=== PATIENT | female | born 1940 | race Caucasian/White ===

== ENCOUNTER → 2017-07-06 08:41 | Outpatient (CLI) | payer MEDICARE, SELFPAY ==
[2017-07-06 09:16] LABS: Basophils % 0.5 % (0.1-2.0); Eosinophils # 0.4 K/mm3 (0.0-0.4); Eosinophils % 6.2 % (0.1-12.0); Hematocrit 43.8 % (37.0-47.0); Hemoglobin 14.4 g/dL (12.2-16.2); Lymphocytes # 1.5 K/mm3 (0.7-4.5); Lymphocytes % 24.3 K/mm3 (10-50); Mean Corpuscular Hemoglobin 32.1 pg (27.0-31.2); Mean Corpuscular Volume 97.4 fl (81-99); Mean Platelet Volume 8.1 fl (7.4-10.4); Monocytes # 0.4 K/mm3 (0.1-1.0); Monocytes % 6.4 % (1.7-9.3); Neutrophils # 3.7 K/mm3 (1.8-7.8); Neutrophils % 62.5 % (37.0-80.0); Platelet Count 233 K/mm3 (142-424)
[2017-07-06 11:34] LABS: Alanine Aminotransferase 25 U/L (12-78); Albumin Level 3.5 gm/dL (3.4-5.0); Albumin/Globulin Ratio 1.1 (1.1-1.8); Alkaline Phosphatase 102 U/L (46-116); Aspartate Amino Transferase 25 U/L (15-37); Bilirubin,Total 0.6 mg/dL (0.2-1.0); Blood Urea Nitrogen 24 mg/dL (7-18); Calcium 9.1 mg/dL (8.5-10.1); Carbon Dioxide 34 mmol/L (21.0-32.0); Chloride 103 mmol/L (98-107); Chol/HDL Ratio 3.6 (1-3.5); Cholesterol 196 mg/dL (140-200); Creatinine,Serum 0.89 mg/dL (0.55-1.02); Estimated Glomerular Filt Rate 62 ml/min (>60); GFR (African American) 75 ML/MIN (>60); Globulin 3.2 gm/dl (1.3-3.2); Glucose 92 mg/dL (74-106); HDL Cholesterol 55 mg/dL (29-89); LDL Cholesterol 122 mg/dL (0-130); Sodium 142 mmol/L (136-145); Thyroid Stimulating Hormone 0.84 uIU/ml (0.358-3.740); Total Protein,Serum 6.7 gm/dL (6.4-8.2); Triglycerides 93 mg/dL (30-200); VLDL Cholesterol 19 mg/dL (0-40)
== END ==
PROVIDERS: Visit Provider Nurse Practitioner Family
DX: M79.2 Neuralgia and neuritis, unspecified (principal); E78.5 Hyperlipidemia, unspecified; E03.9 Hypothyroidism, unspecified; I10 Essential (primary) hypertension; I87.2 Venous insufficiency (chronic) (peripheral); N28.1 Cyst of kidney, acquired
CPT/HCPCS: 36415; 80053; 80061; 84443; 85025

== ENCOUNTER → 2017-07-15 17:52 | Outpatient (REF) | payer MEDICARE, SELFPAY | LOC: LAB 17:52 | PROVIDERS: Visit Provider Podiatrist | DX: B35.1 Tinea unguium (principal) | CPT/HCPCS: 87102; 87206; 87220 ==

== ENCOUNTER → 2017-08-20 08:35 | Outpatient (CLI) | payer MEDICARE, SELFPAY ==
[2017-08-20 10:48] LABS: Anion Gap 9.3 mEq/L (5-15); Blood Urea Nitrogen 27 mg/dL (7-18); Calcium 8.1 mg/dL (8.5-10.1); Carbon Dioxide 29 mmol/L (21.0-32.0); Chloride 104 mmol/L (98-107); Creatinine,Serum 0.76 mg/dL (0.55-1.02); Estimated Glomerular Filt Rate 74 ml/min (>60); GFR (African American) 90 ML/MIN (>60); Glucose 92 mg/dL (74-106); Potassium 4.3 mmoL/L (3.5-5.1); Sodium 138 mmol/L (136-145)
== END ==
PROVIDERS: Urology; Visit Provider Internal Medicine
DX: I25.10 Atherosclerotic heart disease of native coronary artery without angina pectoris (principal); I11.9 Hypertensive heart disease without heart failure; E78.5 Hyperlipidemia, unspecified; R60.9 Edema, unspecified
CPT/HCPCS: 36415; 80048

== ENCOUNTER → 2018-02-19 10:53 | Outpatient (CLI) | payer MEDICARE, SELFPAY ==
[2018-02-19 11:29] LABS: Basophils % 0.3 % (0.1-2.0); Eosinophils # 0.3 K/mm3 (0.0-0.4); Eosinophils % 4.8 % (0.1-12.0); Hematocrit 40.7 % (37.0-47.0); Hemoglobin 13.1 g/dL (12.2-16.2); Lymphocytes # 1.4 K/mm3 (0.7-4.5); Lymphocytes % 19.9 % (10-50); Mean Corpuscular HGB Conc 32.2 g/dL (31.8-35.4); Mean Corpuscular Hemoglobin 31.7 pg (27.0-31.2); Mean Corpuscular Volume 98.7 fl (81-99); Mean Platelet Volume 7.6 fl (7.4-10.4); Monocytes # 0.4 K/mm3 (0.1-1.0); Monocytes % 5.3 % (1.7-9.3); Neutrophils # 4.8 K/mm3 (1.8-7.8); Neutrophils % 69.7 % (37.0-80.0); Platelet Count 245 K/mm3 (142-424); Red Blood Count 4.13 M/mm3 (4.20-5.40); Red Cell Distribution Width 12.7 % (11.5-17.5); White Blood Count 6.9 K/mm3 (4.8-10.8)
[2018-02-19 12:45] LABS: Alanine Aminotransferase 22 U/L (12-78); Albumin Level 3.3 gm/dL (3.4-5.0); Albumin/Globulin Ratio 1.1 (1.1-1.8); Alkaline Phosphatase 92 U/L (46-116); Anion Gap 12.3 mEq/L (5-15); Aspartate Amino Transferase 16 U/L (15-37); Bilirubin,Total 0.6 mg/dL (0.2-1.0); Blood Urea Nitrogen 25 mg/dL (7-18); Calcium 8.3 mg/dL (8.5-10.1); Carbon Dioxide 29 mmol/L (21.0-32.0); Chloride 104 mmol/L (98-107); Cholesterol 172 mg/dL (140-200); Creatinine,Serum 0.84 mg/dL (0.55-1.02); Estimated Glomerular Filt Rate 66 ml/min (>60); GFR (African American) 80 ML/MIN (>60); Glucose 96 mg/dL (74-106); HDL Cholesterol 57 mg/dL (29-89); LDL Cholesterol 92 mg/dL (0-130); Potassium 4.3 mmoL/L (3.5-5.1); Sodium 141 mmol/L (136-145); Thyroid Stimulating Hormone 0.69 uIU/ml (0.358-3.740); Total Protein,Serum 6.3 gm/dL (6.4-8.2); Triglycerides 116 mg/dL (30-200); Uric Acid 5.4 mg/dL (2.6-7.2); VLDL Cholesterol 23 mg/dL (0-40)
[2018-02-21 14:11] LABS: Vitamin D 25 Hydroxy 29.1 ng/mL (30.0-100.0)
== END ==
PROVIDERS: Visit Provider Nurse Practitioner Family
DX: E78.5 Hyperlipidemia, unspecified (principal); I10 Essential (primary) hypertension; M10.9 Gout, unspecified; E03.9 Hypothyroidism, unspecified; R60.9 Edema, unspecified; M89.9 Disorder of bone, unspecified; M94.9 Disorder of cartilage, unspecified
CPT/HCPCS: 36415; 80053; 80061; 82652; 84443; 84550; 85025

== ENCOUNTER → 2018-07-08 08:20 | Outpatient (CLI) | payer MEDICARE, SELFPAY ==
--- NOTE | 2018-07-08 08:23 | CA_ITS ---
PROCEDURE: 2-D M-mode and color Doppler study INDICATIONS FOR THE TEST: Chest pain COPD Heart Murmur Tobacco Smoking Palpitations Fatigue Syncope EdemaX HypertensionXDiabetes Mellitus Rheumatic Fever SOBXDOE ObesityXHyperlipidemiaX Family History HD Additional History CAD,CHF TDS OBESITY PATIENT INFORMATION HEIGHT: 60 WEIGHT:214 GENDER: Female B/P:118/64 2-D/M-MODE INTERPRETATION: 2-D MEASUREMENTS OBSERVED VALUES IN CMS Right Ventricular Dimension (RVDd) 2.7 Interventricular Septum (Thickness)(IVsd) .8 Left Ventricular Internal Dimensions(LVIDd) 4.7 Left Ventricular Posterior Wall (Thickness)(LVPWd) 1.2 Aortic Root 3.4 Aortic Cusp Separation 1.8 Left Atrial Dimensions (LAD) 2.9 2D 1. Left atrium is mildly enlarged, left ventricle is normal size, mild concentric left ventricular hypertrophy, visually estimated ejection fraction 55% with no regional wall motion abnormality. 2. The right atrium and right ventricle are normal size and contractility. 3. The aortic valve is thickened and calcified with restriction in the leaflet mobility. 4. The mitral valve has mitral annular calcification, which extends and both anterior and posterior mitral leaflet. 5. The tricuspid valve is grossly normal. 6. The pulmonic valve is poorly visualized 7. No significant pericardial effusion noted. DOPPLER INTERROGATION: 1. The maximum aortic out flow velocity recorded study is 2.8 m/s, resulting in a mean gradient across valve of 18 mmHg, this represents mild aortic stenosis, there is no aortic insufficiency. 2. The mitral inflow velocities within normal range, there is no mitral stenosis, there is mild mitral regurgitation, grade 1 diastolic dysfunction seen without tissue Doppler evidence of raised left atrial pressure. 3. Mild tricuspid regurgitation, tricuspid regurgitation jet velocity is inadequate for calculation of the right ventricular systolic pressure, inferior vena cava is not well visualized. CONCLUSION: 1. Mildly left atrium, normal left ventricular size, mild concentric left ventricular hypertrophy, visually estimated ejection fraction 55% with no regional wall motion abnormality, grade 1 diastolic dysfunction seen without tissue Doppler evidence of raised left atrial pressure. 2. Thickened and calcified aortic valve mean gradient across valve of 15 mmHg is mild aortic stenosis, there is no aortic insufficiency. 3. Mild mitral and tricuspid regurgitation 4. No significant pericardial effusion noted.
== END ==
PROVIDERS: PCP Internal Medicine Adolescent Medicine; Visit Provider Nurse Practitioner Family
DX: I11.9 Hypertensive heart disease without heart failure; I25.10 Atherosclerotic heart disease of native coronary artery without angina pectoris; I50.32 Chronic diastolic (congestive) heart failure; R60.0 Localized edema; E78.49 Other hyperlipidemia
CPT/HCPCS: 93306

== ENCOUNTER → 2018-08-08 11:56 | Outpatient (CLI) | payer MEDICARE, SELFPAY ==
--- NOTE | 2018-08-08 12:04 | XR_ITS ---
XR chest 2V HISTORY: ITS.REASON: HTN,ASTHMA,RT LUNG NODULE ORDERING PHYSICIAN: Flavia Gomez APRN PATIENT AGE: 78 years COMPARISON: 10 06 16 FINDINGS: The cardiomediastinal silhouette and pulmonary vascularity are within normal limits. The lungs are clear without infiltrates, suspicious nodules, or pleural effusions. Postsurgical changes from left shoulder replacement. Degenerative changes right shoulder.. IMPRESSION: No change with no acute finding
== END ==
PROVIDERS: PCP Nurse Practitioner Family; Visit Provider Nurse Practitioner Family
DX: Z01.818 Encounter for other preprocedural examination (principal); M17.11 Unilateral primary osteoarthritis, right knee
CPT/HCPCS: 71046; 93005

== ENCOUNTER → 2018-08-10 08:34 | Outpatient (CLI) | payer MEDICARE, SELFPAY ==
[2018-08-10 08:38] LABS: Microscopic, Urine URINE MICROSCOPIC (MICROSCOPIC)
[2018-08-10 09:11] LABS: Appearance,Urine CLEAR (Clear); Bilirubin,Urine Negative (Negative); Blood, Urine Negative (Negative); Color,Urine YELLOW (Yellow); Glucose,Urine (UA) Negative (Negative); Ketones,Urine Negative (Negative); Leukocyte Esterase,Urine Negative (Negative); Nitrate,Urine Negative (Negative); PH,Urine 7.5 (5.0-8.5); Protein,Urine Negative (Negative); Urobilinogen,Urine 0.2 EU/dl (0.2)
[2018-08-10 09:17] LABS: Basophils % 0.3 % (0.1-2.0); Eosinophils # 0.1 K/mm3 (0.0-0.4); Eosinophils % 0.9 % (0.1-12.0); Hematocrit 35.4 % (37.0-47.0); Hemoglobin 11.2 g/dL (12.2-16.2); Lymphocytes # 1.8 K/mm3 (0.7-4.5); Lymphocytes % 22.7 % (10-50); Mean Corpuscular HGB Conc 31.7 g/dL (31.8-35.4); Mean Corpuscular Hemoglobin 30.2 pg (27.0-31.2); Mean Corpuscular Volume 95.4 fl (81-99); Mean Platelet Volume 7.1 fl (7.4-10.4); Monocytes # 0.4 K/mm3 (0.1-1.0); Monocytes % 5.3 % (1.7-9.3); Neutrophils # 5.7 K/mm3 (1.8-7.8); Neutrophils % 70.8 % (37.0-80.0); Platelet Count 339 K/mm3 (142-424); Red Blood Count 3.71 M/mm3 (4.20-5.40); White Blood Count 8.1 K/mm3 (4.8-10.8)
[2018-08-10 09:23] LABS: Hemoglobin A1C 5.4 % (0.0-7.0)
[2018-08-10 09:26] LABS: Bacteria,Urine Trace /lpf; Squamous Epithelial Cell,Urine Occasional #/hpf (0-5)
[2018-08-10 09:31] LABS: Activated Partial Thrombo Time 25.9 seconds (23.6-34.0); INR 1.02 (0.9-1.1); Prothrombin Time 10.6 seconds (9.4-11.8)
[2018-08-10 10:40] LABS: Alanine Aminotransferase 27 U/L (12-78); Albumin Level 3.1 gm/dL (3.4-5.0); Albumin/Globulin Ratio 1.1 (1.1-1.8); Alkaline Phosphatase 71 U/L (46-116); Anion Gap 11.5 mEq/L (5-15); Aspartate Amino Transferase 17 U/L (15-37); Bilirubin,Total 0.5 mg/dL (0.2-1.0); Blood Urea Nitrogen 29 mg/dL (7-18); Calcium 8.4 mg/dL (8.5-10.1); Carbon Dioxide 29 mmol/L (21.0-32.0); Chloride 103 mmol/L (98-107); Cholesterol 199 mg/dL (140-200); Creatinine,Serum 0.89 mg/dL (0.55-1.02); Estimated Glomerular Filt Rate 62 ml/min (>60); GFR (African American) 75 ML/MIN (>60); Globulin 2.8 gm/dl (1.3-3.2); Glucose 87 mg/dL (74-106); HDL Cholesterol 66 mg/dL (29-89); LDL Cholesterol 122 mg/dL (0-130); Potassium 4.5 mmoL/L (3.5-5.1); Sodium 139 mmol/L (136-145); Thyroid Stimulating Hormone 1.66 uIU/ml (0.358-3.740); Total Protein,Serum 5.9 gm/dL (6.4-8.2); Triglycerides 53 mg/dL (30-200); Uric Acid 4.3 mg/dL (2.6-7.2); VLDL Cholesterol 11 mg/dL (0-40)
[2018-08-12 17:48] LABS: Vitamin D 25 Hydroxy 35.7 ng/mL (30.0-100.0)
== END ==
PROVIDERS: Visit Provider Nurse Practitioner Family
DX: Z01.818 Encounter for other preprocedural examination (principal); M17.11 Unilateral primary osteoarthritis, right knee; I10 Essential (primary) hypertension; E78.5 Hyperlipidemia, unspecified; M10.9 Gout, unspecified; E03.9 Hypothyroidism, unspecified; I87.2 Venous insufficiency (chronic) (peripheral); M81.0 Age-related osteoporosis without current pathological fracture; D64.9 Anemia, unspecified; Z51.81 Encounter for therapeutic drug level monitoring; Z79.899 Other long term (current) drug therapy
CPT/HCPCS: 36415; 80053; 80061; 81001; 82652; 83036; 84443; 84550; 85025; 85610; 85730

== ENCOUNTER → 2018-11-19 11:56 | Outpatient (CLI) | payer MEDICARE, SELFPAY ==
[2018-11-19 13:32] LABS: Blood Urea Nitrogen 17 mg/dL (7-18); Creatinine,Serum 0.88 mg/dL (0.55-1.02); Estimated Glomerular Filt Rate 62 ml/min (>60); GFR (African American) 76 ML/MIN (>60)
== END ==
PROVIDERS: Visit Provider Thoracic Surgery (Cardiothoracic Vascular Surgery)
DX: Z01.818 Encounter for other preprocedural examination (principal)
CPT/HCPCS: 36415; 82565; 84520

== ENCOUNTER 2019-06-16 12:05 | Emergency (ER) | payer MEDICARE, SELFPAY ==
[2019-06-16 12:05] VITALS: BP 123/59; PULSE 96; RESP 20; TEMP 36.9; O2SAT 96; BMI 42.9
--- NOTE | 2019-06-16 12:15 | PC.NURSE ---
Pt requesting to go to the restroom upon entrance to the ED. She is in there at this time.
--- NOTE | 2019-06-16 12:43 | PC.NURSE ---
Lab coming to collect labs.
--- NOTE | 2019-06-16 12:44 | XR_ITS ---
PROCEDURE: XR KNEE LT 3V CLINICAL INDICATION: Pain COMPARISON: KNEE3L KNEE-3 VIEWS-LT from 12/27/2013 KNEE3L KNEE-3 VIEWS-LT from 05/28/2016 KRASB6K KNEE-LIMITED 2 VIEWS-LT from 11/24/2016 FINDINGS: There is a left knee prosthesis in place with good alignment. There is a long stem intramedullary rafi component associated with the femoral prosthesis. The proximal aspect of the rafi is not imaged on the exam. There has been prior osteotomy of the distal shaft of the femur with prostatic component at this area. This is similar compared to the previous exam. Medium-sized tibial stem is present and is unremarkable. There is some heterotopic ossification along the distal thigh laterally and at the Marti prosthesis region laterally. IMPRESSION: Atypical left knee prosthesis present as described above with good alignment. The proximal stem of the femoral component is not imaged. There is some developing periarticular and distal thigh heterotopic ossification Dictated by: Montrell Costa MD 06/16/2019 14:31 Electronically signed by Montrell Costa MD in [facility] 06/16/2019 14:31
--- NOTE | 2019-06-16 12:49 | PC.NURSE ---
Dr pineda speaking with pt's son at this time.
--- NOTE | 2019-06-16 12:50 | PC.NURSE ---
Lab at bedside
[2019-06-16 13:22] LABS: Basophils # 0.1 K/mm3 (0-0.2); Basophils % 0.5 % (0.1-2.0); Eosinophils # 0.2 K/mm3 (0.0-0.4); Eosinophils % 0.8 % (0.1-12.0); Hemoglobin 11.1 g/dL (12.2-16.2); Lymphocytes # 0.5 K/mm3 (0.7-4.5); Lymphocytes % 2.1 % (10-50); Mean Corpuscular HGB Conc 32.7 g/dL (31.8-35.4); Mean Corpuscular Hemoglobin 30.7 pg (27.0-31.2); Mean Corpuscular Volume 93.9 fl (81-99); Mean Platelet Volume 8.1 fl (7.4-10.4); Monocytes # 0.5 K/mm3 (0.1-1.0); Monocytes % 2.3 % (1.7-9.3); Neutrophils # 20.7 K/mm3 (1.8-7.8); Neutrophils % 94.3 % (37.0-80.0); Platelet Count 280 K/mm3 (142-424); Red Blood Count 3.62 M/mm3 (4.20-5.40); Red Cell Distribution Width 12.8 % (11.5-17.5)
[2019-06-16 13:37] LABS: MANUAL DIFFERENTIAL MANUAL DIFFERENTIAL (MANUAL DIFF)
[2019-06-16 13:39] LABS: Chloride 91 mmol/L (98-107); Sodium 128 mmol/L (136-145)
[2019-06-16 13:40] LABS: Potassium 5.8 mmoL/L (3.5-5.1)
[2019-06-16 13:42] LABS: Alanine Aminotransferase 27 U/L (12-78); Alkaline Phosphatase 136 U/L (38-126); Aspartate Amino Transferase 44 U/L (14-36); Bilirubin,Total 0.5 mg/dl (0.2-1.3); Blood Urea Nitrogen 47 mg/dl (7-17); Creatinine Clearance Estimated 29 mL/min (50-200); Estimated Glomerular Filt Rate 36 ml/min (>60); GFR (African American) 44 ML/MIN (>60)
[2019-06-16 13:43] LABS: Albumin Level 3.1 g/dl (3.5-5.0); Albumin/Globulin Ratio 1.2 (1.1-1.8); Anion Gap 15.8 mEq/L (5-15); Calcium 8.2 mg/dl (8.4-10.2); Carbon Dioxide 27 mmol/L (22.0-30.0); Globulin 2.6 g/dL (1.3-3.2); Glucose 93 mg/dl (74-100); Total Protein,Serum 5.7 g/dl (6.3-8.2)
[2019-06-16 13:53] LABS: Lymphocytes % 3 % (10-50); Monocytes % 4 % (2-9); Neutrophils % 93 % (42-76); Platelet Estimate Normal; RBC Morphology Normal; Total Cells Counted 100
--- NOTE | 2019-06-16 14:13 | CT_ITS ---
PROCEDURE: CT KNEE RT WO and with CON CLINICAL HISTORY: Osteomyelitis Knee pain, prior knee replacement COMPARISON: XR KNEE LT 3V from 06/16/2019 TECHNIQUE: Axial images obtained with sagittal and coronal reformats. All CT scans at the facility use one or more dose reduction, viz: automated exposure control, ma/kV adjustment per patient size (including targeted exams where dose is matched to indication, i.e. head), or iterative reconstruction technique. FINDINGS: There are postsurgical changes present with knee prosthesis present and extensive artifact at the level of the knee joint. This obscures bone and soft tissue detail due to severe beam hardening artifact. There is a small suprapatellar effusion. There is mild diffuse stranding of the subcutaneous fat along the lateral aspect of the right lower thigh and in the proximal tibia. Cannot adequately evaluate the bones or soft tissue at the level of the knee joint. Nonspecific soft tissue calcification is present at the anterior aspect of the proximal leg consistent with heterotopic ossification IMPRESSION: Extensive artifact from the right knee prosthesis with small suprapatellar effusion and mild amount edema about the knee Dictated by: Montrell Costa MD 06/16/2019 16:02 Electronically signed by Montrell Costa MD in [facility] 06/16/2019 16:02
--- NOTE | 2019-06-16 14:14 | CT_ITS ---
PROCEDURE: CT CHEST W CON CLINCAL INDICATION: Fatigue The, pain, pulmonary nodule, spot on lung COMPARISON: ABDPELW/O CT ABD PELVIS W/O CONTRAST from 11/26/2015 CT ABDOMEN PELVIS W CON from 06/16/2019 TECHNIQUE: IV Contrast: 75ml Optiray 350 Axial images obtained with sagittal and coronal reformats. All CT scans at the facility use one or more dose reduction, viz: automated exposure control, ma/kV adjustment per patient size (including targeted exams where dose is matched to indication, i.e. head), or iterative reconstruction technique. FINDINGS: HEART AND MEDIASTINAL STRUCTURES: There are coronary artery calcifications as well as calcification of the aortic valve. Normal heart size. No mediastinal or hilar mass. Artifact is present from left humeral prosthesis. LUNGS AND PLEURAL SPACES: 5 mm noncalcified pulmonary nodules present in the right lower lobe upper which is nonspecific. There is focal area of eventration of the right hemidiaphragm posteriorly BONY STRUCTURES: Severe degenerative changes of the right shoulder. Prominent osteophyte formation of the glenoid and humeral head. Prior left humeral head replacement UPPER ABDOMEN: Please see abdomen report ADDITIONAL FINDINGS: No other significant abnormalities. IMPRESSION: 1. No acute finding. 2. 5 mm right lower lobe nodule nonspecific. Recommend six-month follow-up. 3. Coronary artery calcifications Dictated by: Montrell Costa MD 06/16/2019 15:37 Electronically signed by Montrell Costa MD in [facility] 06/16/2019 15:37
--- NOTE | 2019-06-16 14:14 | CT_ITS ---
PROCEDURE: CT ABDOMEN PELVIS W CON CLINICAL INDICATION: Abdominal pain Abdominal pain, fatigue COMPARISON: ABDPELW/O CT ABD PELVIS W/O CONTRAST from 11/26/2015 TECHNIQUE: IV Contrast: 50ML OPTIRAY 350 Oral Contrast none Axial images obtained with sagittal and coronal reformats. All CT scans at the facility use one or more dose reduction, viz: automated exposure control, ma/kV adjustment per patient size (including targeted exams where dose is matched to indication, i.e. head), or iterative reconstruction technique. FINDINGS: 1. Status post prior lap band surgery. Lap band appears to be in good position. The liver, gallbladder, spleen, adrenal glands, and pancreas have an unremarkable appearance. Low-density changes are present along the lower pole of the right kidney and may be due to renal cyst measuring 4 cm. 12 mm cyst is present in the upper pole of the right kidney. No renal or ureteral calculi. No hydronephrosis. There is an IVC filter present. The cephalad aspect of the filter is below the level of the renal veins. There is a moderate amount of retained colonic feces throughout the colon. No evidence of intestinal obstruction or free air. No evidence of appendicitis or diverticulitis. There is a Castellano catheter present. There is a small umbilical hernia which contains fat. Postsurgical changes are present in the left femur with an intramedullary rafi present There are mildly prominent right-sided inguinal lymph nodes measuring up to 2 cm. Smaller left inguinal lymph nodes are present. No acute bony anomalies are evident. IMPRESSION: 1. No acute abdominal or pelvic findings. 2. Moderate amount of retained colonic feces. 3. There are mildly prominent right inguinal lymph nodes nonspecific 4. Other nonacute findings described Dictated by: Montrell Costa MD 06/16/2019 15:57 Electronically signed by Montrell Costa MD in [facility] 06/16/2019 15:57
--- NOTE | 2019-06-16 14:48 | PC.NURSE ---
Pt to rad at this time.
[2019-06-16 14:55] LABS: Microscopic, Urine URINE MICROSCOPIC (MICROSCOPIC)
[2019-06-16 14:56] LABS: Appearance,Urine SL CLOUDY (Clear); Bilirubin,Urine Negative (Negative); Blood, Urine Negative (Negative); Color,Urine YELLOW (Yellow); Glucose,Urine (UA) Negative (Negative); Ketones,Urine Negative (Negative); Leukocyte Esterase,Urine Negative (Negative); Nitrate,Urine Negative (Negative); PH,Urine 5.5 (5.0-8.5); Protein,Urine TRACE (Negative); Urobilinogen,Urine 0.2 EU/dl (0.2)
[2019-06-16 15:01] LABS: Amorphous Sediment,Urine 2+ /lpf; WBC,Urine Occasional #/hpf (0-3)
[2019-06-16 15:03] LABS: Lactic Acid 0.9 mmol/L (0.7-2.1)
--- NOTE | 2019-06-16 16:12 | PC.NURSE ---
SPEAKING WITH DR VILLARREAL AT THIS TIME
--- NOTE | 2019-06-16 16:16 | PC.NURSE ---
SPEAKING WITH DR WALKER AT THIS TIME.
--- NOTE | 2019-06-16 16:21 | HMH.EDGENADL ---
ED Disposition Referrals: Provider,Referral, [Primary Care Provider] - Attestation: On 06/16/19, the high probability of a clinically significant, sudden or life threatening deterioration of the following system(s) required my full and direct attention, intervention and personal management. The time I documented below is in addition to time spent performing reported procedures but includes the following listed in this critical care notation. Medical Decision Making Vital Signs: 06/16/19 12:05 Temperature 98.4 F Temperature Source Oral Pulse Rate [Right] 96 H Respiratory Rate 20 Blood Pressure [Right Arm] 123/59 L Blood Pressure Mean [Right Arm] 80 02 Sat by Pulse Oximetry 96 - Lab Data Lab Results 06/16/19 13:15: WBC 22.0 H*, RBC 3.62 L, Hgb 11.1 L, Hct 34.0 L, MCV 93.9, MCH 30.7, MCHC 32.7, RDW 12.8, Plt Count 280, MPV 8.1, Neut % (Auto) 94.3 H, Lymph % (Auto) 2.1 L, [place] % (Auto) 2.3, Eos % (Auto) 0.8, Baso % (Auto) 0.5, Neut # (Auto) 20.7 H, Lymph # (Auto) 0.5 L, [place] # (Auto) 0.5, Eos # (Auto) 0.2, Baso # (Auto) 0.1, Total Counted 100, Neutrophils % (Manual) 93 H, Lymphocytes % (Manual) 3 L, Monocytes % (Manual) 4, Platelet Estimate Normal, RBC Morphology Normal 06/16/19 13:15: Sodium 128 L, Potassium 5.8 H, Chloride 91 L, Carbon Dioxide 27, Anion Gap 15.8 H, BUN 47 H, Creatinine 1.40 H, Estimated Creat Clear 29, Estimated GFR 36 L, Est GFR ( Amer) 44 L, Glucose 93, Calcium 8.2 L, Total Bilirubin 0.5, AST 44 H, ALT 27, Alkaline Phosphatase 136 H, Total Protein 5.7 L, Albumin 3.1 L, Globulin 2.6, Albumin/Globulin Ratio 1.2 06/16/19 14:46: Lactate 0.9 06/16/19 14:46: Urine Color Yellow, Urine Appearance Sl cloudy, Urine pH 5.5, Ur Specific [place] 1.020, Urine Protein Trace, Urine Glucose (UA) Negative, Urine Ketones Negative, Urine Blood Negative, Urine Nitrate Negative, Urine Bilirubin Negative, Urine Urobilinogen 0.2, Ur Leukocyte Esterase Negative, Urine RBC None, Urine WBC Occasional, Ur Squamous Epith Cells 10-20, Amorphous Sediment 2+, Urine Bacteria None Result diagrams: 06/16/19 13:15 06/16/19 13:15 Orders (Tests/Meds): ED MEDICATIONS Discontinued Medications Generic Name Dose Route Start Last Admin Trade Name Margarita PRN Reason Stop Dose Admin Ioversol 50 ml 06/16/19 15:08 06/16/19 15:10 Rad-Optiray 350 100ml Vial IV 06/16/19 15:09 50 ml ONCE ONE Administration Protocol Sodium Chloride 10 ml 06/16/19 15:08 06/16/19 15:09 Rad-Saline Flush 10ml Syringe IV 06/16/19 15:09 10 ml ONCE ONE Administration ORDERS Category Date Time Status Blood Culture Stat Micro 06/16/19 14:46 Received General Adult HPI - General Chief complaint: PAIN Stated complaint: pain in legs Mode of Arrival: EMS Limitations: No Limitations Description of Symptoms (Recalled from ER Triage Doc. by RN): PT C/P PAIN IN BOTH LEGS THAT SHE HAS HAD FOR YEARS AFTER HER KNEE SURGERY AND THE PAIN HAS BECOME SO BAD ITS DIFFICULT TO WALK, PT STATES SHE TOOK 2 [place]CO AND CAUSED HER TO HAVE HALLUCINATIONS. DENIES FEVER, COUGH, SOA OR TRAVEL HX. - Related Data Home Medications Medication Instructions Recorded Confirmed diclofenac sodium 75 mg 75 mg PO BID 04/23/17 11/24/18 tablet,delayed release duloxetine 30 mg capsule,delayed 30 mg PO BID 04/23/17 11/24/18 release polyethylene glycol 3350 17 17 g PO Q10M 04/23/17 11/24/18 gram/dose oral powder tramadol 50 mg tablet 50 mg PO Q4-6H PRN 04/23/17 11/24/18 calcium carbonate 600 mg calcium 600 mg PO BID tab 07/13/17 11/24/18 (1,500 mg) tablet coenzyme Q10 100 mg capsule 100 mg PO DAILY cap 07/13/17 11/24/18 mecobalamin (vitamin B12) 5,000 mcg PO 07/13/17 11/24/18 mcg disintegrating tablet potassium chloride 20 mEq oral 20 meq PO BID each 07/13/17 11/24/18 packet aspirin 81 mg tablet,delayed 81 mg PO DAILY tab 09/07/17 11/24/18 release colchicine 0.6 mg tablet 0.6 mg PO DAILY tab 09/07/17 11/24/18 levothyroxin
--- NOTE | 2019-06-16 16:23 | PC.NURSE ---
Attempting to reach [facility] MD request
--- NOTE | 2019-06-16 16:41 | PC.NURSE ---
Called [facility] for Dr Lake to speak to Hospitalist at [facility]
--- NOTE | 2019-06-16 16:57 | PC.NURSE ---
SPEAKING WITH DR PENN, [facility]
--- NOTE | 2019-06-16 17:08 | HMH.EDGENADL ---
ED Disposition Clinical Impression: Cellulitis of knee, left Disposition: Xfer Short-Term Hosp Condition on Discharge: Good Instructions: Cellulitis Additional Instructions: Dr. Jaffe at [facility] is a accepting physician Referrals: Provider,Referral, [Primary Care Provider] - - Critical Care Critical Care Time: No Attestation: On 06/16/19, the high probability of a clinically significant, sudden or life threatening deterioration of the following system(s) required my full and direct attention, intervention and personal management. The time I documented below is in addition to time spent performing reported procedures but includes the following listed in this critical care notation. Medical Decision Making - Redd Inquiry Pt receiving controlled substance: No Vital Signs: 06/16/19 12:05 Temperature 98.4 F Temperature Source Oral Pulse Rate [Right] 96 H Respiratory Rate 20 Blood Pressure [Right Arm] 123/59 L Blood Pressure Mean [Right Arm] 80 02 Sat by Pulse Oximetry 96 - Lab Data Lab results reviewed: Yes: I reviewed the patient's lab results. Lab Results 06/16/19 13:15: WBC 22.0 H*, RBC 3.62 L, Hgb 11.1 L, Hct 34.0 L, MCV 93.9, MCH 30.7, MCHC 32.7, RDW 12.8, Plt Count 280, MPV 8.1, Neut % (Auto) 94.3 H, Lymph % (Auto) 2.1 L, [place] % (Auto) 2.3, Eos % (Auto) 0.8, Baso % (Auto) 0.5, Neut # (Auto) 20.7 H, Lymph # (Auto) 0.5 L, [place] # (Auto) 0.5, Eos # (Auto) 0.2, Baso # (Auto) 0.1, Total Counted 100, Neutrophils % (Manual) 93 H, Lymphocytes % (Manual) 3 L, Monocytes % (Manual) 4, Platelet Estimate Normal, RBC Morphology Normal 06/16/19 13:15: Sodium 128 L, Potassium 5.8 H, Chloride 91 L, Carbon Dioxide 27, Anion Gap 15.8 H, BUN 47 H, Creatinine 1.40 H, Estimated Creat Clear 29, Estimated GFR 36 L, Est GFR ( Amer) 44 L, Glucose 93, Calcium 8.2 L, Total Bilirubin 0.5, AST 44 H, ALT 27, Alkaline Phosphatase 136 H, Total Protein 5.7 L, Albumin 3.1 L, Globulin 2.6, Albumin/Globulin Ratio 1.2 06/16/19 14:46: Lactate 0.9 06/16/19 14:46: Urine Color Yellow, Urine Appearance Sl cloudy, Urine pH 5.5, Ur Specific [place] 1.020, Urine Protein Trace, Urine Glucose (UA) Negative, Urine Ketones Negative, Urine Blood Negative, Urine Nitrate Negative, Urine Bilirubin Negative, Urine Urobilinogen 0.2, Ur Leukocyte Esterase Negative, Urine RBC None, Urine WBC Occasional, Ur Squamous Epith Cells 10-20, Amorphous Sediment 2+, Urine Bacteria None Result diagrams: 06/16/19 13:15 06/16/19 13:15 Orders (Tests/Meds): ED MEDICATIONS Discontinued Medications Generic Name Dose Route Start Last Admin Trade Name Margarita PRN Reason Stop Dose Admin Ioversol 50 ml 06/16/19 15:08 06/16/19 15:10 Rad-Optiray 350 100ml Vial IV 06/16/19 15:09 50 ml ONCE ONE Administration Protocol Sodium Chloride 10 ml 06/16/19 15:08 06/16/19 15:09 Rad-Saline Flush 10ml Syringe IV 06/16/19 15:09 10 ml ONCE ONE Administration ORDERS Category Date Time Status Blood Culture Stat Micro 06/16/19 14:46 Received - CT Data CT Scan: Abdomen, Pelvis, Chest, Other Time Received: 16:00 Preliminary Findings: Abnormal (CT of the chest was negative CT the abdomen pelvis was negative however on the CT of the left knee did show edema.) General Adult HPI - General Chief complaint: PAIN Stated complaint: pain in legs Time Seen by Provider: 06/16/19 16:00 Mode of Arrival: EMS Source of Information: Patient Limitations: No Limitations Description of Symptoms (Recalled from ER Triage Doc. by RN): PT C/P PAIN IN BOTH LEGS THAT SHE HAS HAD FOR YEARS AFTER HER KNEE SURGERY AND THE PAIN HAS BECOME SO BAD ITS DIFFICULT TO WALK, PT STATES SHE TOOK 2 [place]CO AND CAUSED HER TO HAVE HALLUCINATIONS. DENIES FEVER, COUGH, SOA OR TRAVEL HX. - History of Present Illness HPI narrative: 79-year-old female presents the ED complaining of left knee pain. She also is complaining of abdominal pain that is been waxing and waning
--- NOTE | 2019-06-16 18:20 | PC.NURSE ---
CALLED [facility] FOR TRANSPORT. THEY ADVISED THAT THE OTHER TRUCK JUST GOT TO AND THAT THEY WOULD BE HERE TO TRANSPORT HER ONCE THE TRUCK WAS BACK IN THE COUNTY.
[2019-06-16 18:27] VITALS: BP 122/87; PULSE 87; RESP 20; TEMP 36.8; O2SAT 98
== END 2019-06-16 20:00 | disposition short-term general hospital (02) ==
PROVIDERS: Emergency Provider Family Medicine
DX: L03.116 Cellulitis of left lower limb (principal); R10.30 Lower abdominal pain, unspecified; R10.10 Upper abdominal pain, unspecified; E78.5 Hyperlipidemia, unspecified; I10 Essential (primary) hypertension; E03.9 Hypothyroidism, unspecified; Z88.0 Allergy status to penicillin; Z88.2 Allergy status to sulfonamides; Z88.8 Allergy status to other drugs, medicaments and biological substances
CPT/HCPCS: 71260; 73562; 73700; 74177; 80053; 81001; 83605; 85007; 85025; 87040; 87077; 87186; 99284; Q9967

== ENCOUNTER 2021-08-11 13:50 | Emergency (ER) | payer MEDICARE, SELFPAY ==
[2021-08-11 13:50] VITALS: BP 147/79; PULSE 108; RESP 18; TEMP 36.9; O2SAT 96; BMI 39.0
--- NOTE | 2021-08-11 13:51 | XR_ITS ---
FINAL REPORT CLINICAL HISTORY: swelling, pain anterior(metatarsal) FINDINGS: RIGHT FOOT: Three views of the right foot were obtained. There are mild and moderate degenerative changes. The bones are osteopenic. There are subacute nondisplaced fractures of the necks of the 3rd and 4th metatarsals that could represent stress fractures. There is a plantar calcaneal spur. There is soft tissue swelling of the forefoot. IMPRESSION: Subacute nondisplaced fractures of the necks of the 3rd and 4th metatarsals could represent stress fractures. Reviewed, Interpreted and Dictated by Jordan Richardson III, MD Transcribed by Harrison Olivarez Authenticated and [facility]
--- NOTE | 2021-08-11 13:52 | HMH.EDGENADL ---
ED Disposition Clinical Impression: Localized swelling of right foot, Venous insufficiency of both lower extremities Stress fracture of foot Qualifiers: Encounter type: initial encounter Laterality: right Qualified Code(s): M84.374A - Stress fracture, right foot, initial encounter for fracture Disposition: Home, Self-Care Condition on Discharge: Good Instructions: DI for Stress Fracture, DI for Edema Due to Venous Stasis, DI for Dependent Edema, DI for Peripheral Edema-Unilateral Additional Instructions: You have been evaluated for swelling of the right foot. Consistent with stress fracture of the foot, dependent edema and cellulitis. Please keep taking your antibiotics as prescribed, Keflex and doxycycline. Wear walking boot for now. Compression stockings after your fracture is healed. Elevate your feet and legs while at rest. Follow-up with your primary care doctor and control electrician. Return to the emergency department for any new or worsening symptoms, fevers, vomiting, difficulty breathing or other concerns.. Referrals: Flavia Gomez APRN [Primary Care Provider] - Jessie Arce DPM [Staff Physician] - Time of Disposition: 14:55 - Critical Care Critical Care Time: No Attestation: On , the high probability of a clinically significant, sudden or life threatening deterioration of the following system(s) required my full and direct attention, intervention and personal management. The time I documented below is in addition to time spent performing reported procedures but includes the following listed in this critical care notation. Medical Decision Making - Medical Records Medical records reviewed: Yes: I reviewed the patient's medical records. - Redd Inquiry Pt receiving controlled substance: No Vital Signs: 08/11/21 13:50 08/11/21 14:31 Temperature 98.4 F Temperature Source Oral Pulse Rate 92 H Pulse Rate [Right Radial] 108 H Respiratory Rate 18 20 Blood Pressure 113/75 Blood Pressure [Right Arm] 147/79 H Blood Pressure Mean 92 Blood Pressure Mean [Right Arm] 101 Blood Pressure Source [Right Arm] Automatic Cuff Blood Pressure Position [Right Arm] Sitting 02 Sat by Pulse Oximetry 96 94 L Oxygen Delivery Method Room Air - Lab Data Lab Results 08/11/21 14:45: WBC 8.6, RBC 4.40, Hgb 13.6, Hct 39.8, MCV 90.4, MCH 31.0, MCHC 34.3, RDW 13.7, Plt Count 278, MPV 7.5, Neut % (Auto) 79.6, Lymph % (Auto) 12.0, [place] % (Auto) 4.4, Eos % (Auto) 3.7, Baso % (Auto) 0.3, Neut # (Auto) 6.9, Lymph # (Auto) 1.0, [place] # (Auto) 0.4, Eos # (Auto) 0.3, Baso # (Auto) 0.0 08/11/21 14:45: Sodium 140, Potassium 4.1, Chloride 105, Carbon Dioxide 29, Anion Gap 10.1, BUN 18 H, Creatinine 0.80, Estimated Creat Clear 65, Estimated GFR 69, Est GFR ( Amer) 84, Glucose 113 H, Calcium 8.8, Total Bilirubin 0.5, AST 34, ALT 19, Alkaline Phosphatase 102, C-Reactive Protein 24.0 H, Total Protein 6.5, Albumin 3.7, Globulin 2.8, Albumin/Globulin Ratio 1.3 08/11/21 14:45: ESR 74 H Result diagrams: 08/11/21 14:45 08/11/21 14:45 - Radiology Data #1 Image(s): Foot/Toes Image Reviewed: Yes I reviewed the patient's radiology results, Yes I reviewed the patient's radiology image Preliminary Findings: Normal/NAD, Abnormal Xray right foot IMPRESSION: Subacute nondisplaced fractures of the necks of the 3rd and 4th metatarsals could represent stress fractures. Mild soft tissue swelling. Medical Decision Narrative: In summary this is a 81-year-old female with history of multiple orthopedic surgeries on the knees, peripheral vascular disease, diabetes, hypertension, obesity presenting to the emergency department with redness, pain, swelling to the right foot. Patient clinically stable on arrival. Vital signs within normal limits. Will obtain CBC, CMP, ESR, CRP, x-ray of the right foot. Laboratory results reassuring. No significant leukocytosis. X-rays show soft tissue swelling over the dorsal aspect of the foot
--- NOTE | 2021-08-11 14:05 | PC.NURSE ---
rad at BS for portable xray
[2021-08-11 14:31] VITALS: BP 113/75; PULSE 92; RESP 20; O2SAT 94
[2021-08-11 14:55] LABS: Basophils % 0.3 % (0.1-2.0); Eosinophils # 0.3 K/mm3 (0.0-0.4); Eosinophils % 3.7 % (0.1-12.0); Hematocrit 39.8 % (37.0-47.0); Hemoglobin 13.6 g/dL (12.2-16.2); Mean Corpuscular HGB Conc 34.3 g/dL (31.8-35.4); Mean Corpuscular Volume 90.4 fl (81-99); Mean Platelet Volume 7.5 fl (7.4-10.4); Monocytes # 0.4 K/mm3 (0.1-1.0); Monocytes % 4.4 % (1.7-9.3); Neutrophils # 6.9 K/mm3 (1.8-7.8); Neutrophils % 79.6 % (37.0-80.0); Platelet Count 278 K/mm3 (142-424); Red Cell Distribution Width 13.7 % (11.5-17.5); White Blood Count 8.6 K/mm3 (4.8-10.8)
[2021-08-11 15:03] LABS: Chloride 105 mmol/L (98-107); Sodium 140 mmol/L (136-145)
[2021-08-11 15:04] LABS: Potassium 4.1 mmoL/L (3.5-5.1)
[2021-08-11 15:06] LABS: Alanine Aminotransferase 19 U/L (12-78); Alkaline Phosphatase 102 U/L (38-126); Anion Gap 10.1 mEq/L (5-15); Aspartate Amino Transferase 34 U/L (14-36); Bilirubin,Total 0.5 mg/dl (0.2-1.3); Blood Urea Nitrogen 18 mg/dl (7-17); Calcium 8.8 mg/dl (8.4-10.2); Carbon Dioxide 29 mmol/L (22.0-30.0); Creatinine Clearance Estimated 65 mL/min (50-200); Estimated Glomerular Filt Rate 69 ml/min (>60); GFR (African American) 84 ML/MIN (>60); Glucose 113 mg/dl (74-100)
[2021-08-11 15:07] LABS: Albumin Level 3.7 g/dl (3.5-5.0); Albumin/Globulin Ratio 1.3 (1.1-1.8); Globulin 2.8 g/dL (1.3-3.2); Total Protein,Serum 6.5 g/dl (6.3-8.2)
[2021-08-11 15:51] LABS: Erythrocyte Sedimentation Rate 74 mm/hr (0-30)
[2021-08-11 18:07] VITALS: BP 131/72; PULSE 98; RESP 18; TEMP 36.7; O2SAT 97
== END 2021-08-11 18:07 | disposition home or self-care (01) ==
PROVIDERS: Emergency Provider Emergency Medicine; PCP Nurse Practitioner Family
DX: M84.374A Stress fracture, right foot, initial encounter for fracture (principal); I99.8 Other disorder of circulatory system; Z87.39 Personal history of other diseases of the musculoskeletal system and connective tissue; I73.9 Peripheral vascular disease, unspecified; E11.9 Type 2 diabetes mellitus without complications; I10 Essential (primary) hypertension; E66.9 Obesity, unspecified; J45.909 Unspecified asthma, uncomplicated; E78.5 Hyperlipidemia, unspecified; N28.9 Disorder of kidney and ureter, unspecified; M19.90 Unspecified osteoarthritis, unspecified site; E03.9 Hypothyroidism, unspecified; Z68.39 Body mass index [BMI] 39.0-39.9, adult
CPT/HCPCS: 36415; 73630; 80053; 85025; 85651; 86140; 99283

== ENCOUNTER → 2021-09-02 14:01 | Outpatient (CLI) | payer MEDICARE, SELFPAY ==
--- NOTE | 2021-09-02 14:06 | XR_ITS ---
FINAL REPORT CLINICAL HISTORY: stress fracture evaluation, weightbearing views. COMPARISON: 08/11/2021 FINDINGS: RIGHT FOOT Three weight-bearing views of the right foot were obtained. Artifact from an overlying bandage obscures some bony detail. There is no definite fracture or periosteal reaction. The bones are osteopenic. There is mild and moderate degenerative change. There is a plantar calcaneal spur. The soft tissues are unremarkable. IMPRESSION: No definite fracture. If indicated, MRI would be more sensitive for evaluation of possible stress fracture. Reviewed, Interpreted and Dictated by Jordan Richardson III, MD Transcribed by Юлия Singleton Authenticated and [facility]
== END ==
PROVIDERS: PCP Nurse Practitioner Family; Visit Provider Podiatrist
DX: M84.374A Stress fracture, right foot, initial encounter for fracture; M79.671 Pain in right foot
CPT/HCPCS: 73630

== ENCOUNTER → 2022-02-02 09:56 | Outpatient (CLI) | payer MEDICARE, SELFPAY ==
[2022-02-02 10:18] LABS: Basophils # 0.1 K/mm3 (0-0.2); Basophils % 0.9 % (0.1-2.0); Eosinophils # 0.7 K/mm3 (0.0-0.4); Eosinophils % 10.1 % (0.1-12.0); Hematocrit 42.7 % (37.0-47.0); Hemoglobin 13.3 g/dL (12.2-16.2); Lymphocytes # 1.6 K/mm3 (0.7-4.5); Lymphocytes % 24.3 % (10-50); Mean Corpuscular HGB Conc 31.2 g/dL (31.8-35.4); Mean Corpuscular Hemoglobin 30.8 pg (27.0-31.2); Mean Corpuscular Volume 98.7 fl (81-99); Mean Platelet Volume 7.7 fl (7.4-10.4); Monocytes # 0.3 K/mm3 (0.1-1.0); Monocytes % 4.8 % (1.7-9.3); Neutrophils % 59.8 % (37.0-80.0); Platelet Count 310 K/mm3 (142-424); Red Blood Count 4.32 M/mm3 (4.20-5.40); Red Cell Distribution Width 13.7 % (11.5-17.5); White Blood Count 6.7 K/mm3 (4.8-10.8)
[2022-02-02 11:07] LABS: Chloride 103 mmol/L (98-107); Sodium 135 mmol/L (136-145)
[2022-02-02 11:10] LABS: Alanine Aminotransferase 16 U/L (12-78); Albumin Level 3.6 g/dl (3.5-5.0); Albumin/Globulin Ratio 1.6 (1.1-1.8); Alkaline Phosphatase 80 U/L (38-126); Aspartate Amino Transferase 29 U/L (14-36); Bilirubin,Total 0.2 mg/dl (0.2-1.3); Blood Urea Nitrogen 27 mg/dl (7-17); Carbon Dioxide 32 mmol/L (22.0-30.0); Estimated Glomerular Filt Rate 81 ml/min (>60); GFR (African American) 98 ML/MIN (>60); Globulin 2.2 g/dL (1.3-3.2); Total Protein,Serum 5.8 g/dl (6.3-8.2)
[2022-02-02 11:11] LABS: Calcium 8.8 mg/dl (8.4-10.2); Glucose 92 mg/dl (74-100)
[2022-02-02 11:16] LABS: C-Reactive Protein 4.2 mg/L (0-4)
[2022-02-02 11:41] LABS: Erythrocyte Sedimentation Rate 22 mm/hr (0-30)
== END ==
PROVIDERS: PCP Nurse Practitioner Family; Visit Provider Internal Medicine Infectious Disease
DX: L03.116 Cellulitis of left lower limb (principal); T84.54XD Infection and inflammatory reaction due to internal left knee prosthesis, subsequent encounter; B95.1 Streptococcus, group B, as the cause of diseases classified elsewhere; A40.1 Sepsis due to streptococcus, group B; D72.823 Leukemoid reaction
CPT/HCPCS: 36415; 80053; 85025; 85651; 86140

== ENCOUNTER → 2022-08-06 09:26 | Outpatient (CLI) | payer MEDICARE, SELFPAY ==
[2022-08-06 10:15] LABS: Basophils % 0.5 % (0.1-2.0); Eosinophils # 0.8 K/mm3 (0.0-0.4); Eosinophils % 11.4 % (0.1-12.0); Hematocrit 40.3 % (37.0-47.0); Hemoglobin 12.6 g/dL (12.2-16.2); Lymphocytes # 1.7 K/mm3 (0.7-4.5); Lymphocytes % 24.2 % (10-50); Mean Corpuscular HGB Conc 31.2 g/dL (31.8-35.4); Mean Corpuscular Hemoglobin 30.2 pg (27.0-31.2); Monocytes # 0.6 K/mm3 (0.1-1.0); Monocytes % 8.2 % (1.7-9.3); Neutrophils # 3.9 K/mm3 (1.8-7.8); Neutrophils % 55.7 % (37.0-80.0); Platelet Count 338 K/mm3 (142-424); Red Blood Count 4.16 M/mm3 (4.20-5.40); White Blood Count 6.9 K/mm3 (4.8-10.8)
[2022-08-06 10:41] LABS: Erythrocyte Sedimentation Rate 22 mm/hr (0-30)
[2022-08-06 10:55] LABS: Chloride 100 mmol/L (98-107); Potassium 4.4 mmoL/L (3.5-5.1); Sodium 135 mmol/L (136-145)
[2022-08-06 10:58] LABS: Alanine Aminotransferase 15 U/L (12-78); Albumin Level 3.2 g/dl (3.5-5.0); Albumin/Globulin Ratio 1.4 (1.1-1.8); Alkaline Phosphatase 50 U/L (38-126); Anion Gap 9.4 mEq/L (5-15); Aspartate Amino Transferase 34 U/L (14-36); Bilirubin,Total 0.2 mg/dl (0.2-1.3); Blood Urea Nitrogen 29 mg/dl (7-17); Carbon Dioxide 30 mmol/L (22.0-30.0); Estimated Glomerular Filt Rate 69 ml/min (>60); GFR (African American) 84 ML/MIN (>60); Globulin 2.3 g/dL (1.3-3.2); Glucose 95 mg/dl (74-100); Total Protein,Serum 5.5 g/dl (6.3-8.2)
[2022-08-06 11:04] LABS: C-Reactive Protein 10.8 mg/L (0-4)
== END ==
LOC: LAB 09:28
PROVIDERS: PCP Nurse Practitioner Family; Visit Provider Internal Medicine Infectious Disease
DX: L03.116 Cellulitis of left lower limb (principal); T84.54XD Infection and inflammatory reaction due to internal left knee prosthesis, subsequent encounter; B95.1 Streptococcus, group B, as the cause of diseases classified elsewhere; A40.1 Sepsis due to streptococcus, group B; D72.823 Leukemoid reaction
CPT/HCPCS: 36415; 80053; 85025; 85651; 86140

== ENCOUNTER → 2023-02-09 10:49 | Outpatient (CLI) | payer MEDICARE, SELFPAY ==
--- NOTE | 2023-02-09 11:05 | US_ITS ---
FINAL REPORT TECHNIQUE: Sonographic images were obtained of the retroperitoneum. CLINICAL HISTORY: RENAL MASS FINDINGS: The right kidney measures 9.2 cm. The left kidney measures 8.5 cm. There is a 3.9 x 3.2 cm complex structure in the inferior pole of the right kidney with internal septations. This is indeterminate. The left kidney is suboptimally visualized. The spleen measures 9.3 cm. IMPRESSION: 3.9 x 3.2 cm complex structure in the inferior pole of the right kidney. Further characterization with CT abdomen without and with contrast is necessary. Reviewed, Interpreted and Dictated by Alden Jones MD Transcribed by Harrison Olivarez Authenticated and [facility]
== END ==
PROVIDERS: PCP Nurse Practitioner Family; Visit Provider Nurse Practitioner Family
DX: N28.89 Other specified disorders of kidney and ureter (principal); M81.0 Age-related osteoporosis without current pathological fracture; N95.0 Postmenopausal bleeding
CPT/HCPCS: 76770

== ENCOUNTER 2023-03-03 09:31 | Outpatient (CLI) | payer MEDICARE, SELFPAY ==
--- NOTE | 2023-03-03 09:38 | US_ITS ---
PROCEDURE: US TRANSVAGINAL CLINICAL INDICATION: POST MENOPAUSAL BLEEDING COMPARISON: No exams were available for comparison FINDINGS: Transvaginal sonographic images of the pelvis were obtained. Difficult examination secondary to wheelchair bound patient. UTERUS: 3.3cm x 3.4cmx 2.1cm anteverted with a endometrium that could not be visualized clearly. LEFT OVARY: Not visualized. RIGHT OVARY: Not visualized. Both ovaries are not seen today. There is no fluid in the cul-de-sac. IMPRESSION: 1. Small anteverted uterus. The endometrium could not be visualized. It appears atrophic. 2. Ovaries were not visualized today. No adnexal masses seen. 3. No fluid in the cul-de-sac. 4. Difficult examination due to the patient's wheelchair-bound status. Dictated by: Wes Ramirez MD 03/03/2023 15:05 Wes Ramirez MD in [place] 03/03/2023 15:05
== END 2023-03-03 23:59 ==
LOC: RAD 09:32
PROVIDERS: PCP Nurse Practitioner Family; Visit Provider Nurse Practitioner Family
DX: N95.0 Postmenopausal bleeding (principal)
CPT/HCPCS: 76830

== ENCOUNTER 2023-03-11 09:07 | Outpatient (CLI) | payer MEDICARE, SELFPAY ==
--- NOTE | 2023-03-11 09:13 | XR_ITS ---
FINAL REPORT TECHNIQUE: Bone mineral density was calculated of the lumbar spine and hip. CLINICAL HISTORY: OSTEOPENIA, UNABLE TO DO LEFT HIP DUE TO METAL FINDINGS: Using L1-4, the bone mineral density of the spine is 1.042 g/cm2, corresponding to T-score of 0.0 but is likely falsely elevated secondary to hypertrophic changes. Using the right hip, the bone mineral density of the femoral neck is 0.470 g/cm2, corresponding to a T-score of -3.4. NOTE: T-score: Standard deviation compared with peak bone mass of young adult mean. *Following the recommendations of the International Society of Bone densitometry, classification of hip BMD is based on the lower of two T-scores; total hip or femoral neck. IMPRESSION: Diminished bone mineral density consistent with osteoporosis. FRAX was not reported because patient is being treated for osteoporosis. Reviewed, Interpreted and Dictated by Jordan Richardson III, MD Transcribed by Analisa Cornejo Authenticated and . [facility]
== END 2023-03-11 23:59 ==
LOC: RAD 09:08
PROVIDERS: PCP Nurse Practitioner Family; Visit Provider Nurse Practitioner Family
DX: M81.0 Age-related osteoporosis without current pathological fracture (principal)
CPT/HCPCS: 77080

== ENCOUNTER 2023-04-08 10:27 | Outpatient (CLI) | payer MEDICARE, SELFPAY ==
[2023-04-08 10:34] VITALS: BMI 39.0
[2023-04-08 11:19] LABS: Albumin Level 3.7 g/dl (3.5-5.0)
[2023-04-08 11:21] LABS: Calcium 8.2 mg/dl (8.4-10.2); Creatinine Clearance Estimated 64 mL/min (50-200); Estimated Glomerular Filt Rate 69 ml/min (>60); GFR (African American) 84 ML/MIN (>60)
[2023-04-08] MEDS: SODIUM CHLORIDE 0.9% 10ML FLUSH SYRINGE 10 ML IV (11:30)
[2023-04-08] MEDS: SODIUM CHLORIDE 0.9% 50ML BAG 50 ML IV (11:30)
[2023-04-08] MEDS: ZOLEDRONIC ACID/MANNITOL-WATER 5 MG/100 ML PGGYBK.BTL 400 MG IV (11:30)
== END 2023-04-08 12:06 | disposition home or self-care (01) ==
LOC: INF 10:28
PROVIDERS: PCP Nurse Practitioner Family; Visit Provider Nurse Practitioner Family
DX: M81.0 Age-related osteoporosis without current pathological fracture (principal)
CPT/HCPCS: 82040; 82310; 82565; 96374; J3489

== ENCOUNTER 2023-05-19 13:00 | Outpatient (RCR) | payer MEDICARE, SELFPAY ==
--- NOTE | 2023-02-12 14:32 | HMH.PTOPWND ---
Rehab Outpt Wound Evaluation Rehab OP Wound Evaluation Start: 02/12/23 14:19 Freq: Status: Active Protocol: Document 02/12/23 14:21 PHOMARCO A (Rec: 02/12/23 14:32 PHORNE [id number]) E-signed By Roland Costello, PT Subjective/History History History This is the initial PT eval for Sy Barlow, 82 yowf who presents with increased edema in B LE x 2-3 yrs. She reports multiple B knee surgeries, most recently R patella tendon repair, which necessitated a long rehab stay over the past 1-2 yrs. She now has significant difficulty with standing, I can stand for about 2 minutes before I have to sit down, and spend most of her time in a power w/c. She has shown significant continued edema despite elevation of B LE throughout the day, B LE ankle pumps 2-3 x/day, and consistent compression garment wear daily for > 1 yr. Subjective Subjective Pain currently 0/10, at worst 9/10 with standing. Severe B LE blanchable erythema noted. 2+ pitting edema to B lower legs from knee diatally. 2/4 TTP noted to B lower legs. New diagnosis of cancer in past 12 No months? Lymphedema Eval Classification of Lymphedema Secondary Lymphedema Yes Stemmer's sign Stemmer's Sign yes Stage of Lymphedema Lymphedema stages Stage II (Pitting edema, increased fibrosis w/ decreased pitting) Skin Changes Dry Skin Yes Taut, Shiny Skin Yes Skin Folds Yes Redness Yes Discoloration of Skin Yes Other Changes Yes Pain Scale Pain Scale (0-10) 9 Affected Extremities Areas Affected by Lymphedema/Edema Right Lower Extremity,Left Lower Extremity Manual Lymphatic Drainage Treatment Area MLD Treatment Area Right Lower Extremity,Left Lower Extremity Wound Problems/Impairments Impairments Problems/Impairmments Palpation Tenderness,Impaired Strength,Impaired Endurance, Impaired Transfers,Impaired Gait Pattern,Impaired Walking, Impaired Standing,Impaired Household Care,Increased Edema ,Lymphedema Present,Subjective C/O Pain,Impaired Self Care/ Self Management Prognosis Rehab Potential Good Clinical Impression Consistent with Diagnosis Yes Short Term Goals Number of Weeks 2 Decreased Palpation Tenderness Yes: 1/4 B lower legs Decrease Edema Yes: 1+ pitting edema Decrease Subjective C/O Pain Yes: 8/10 at worst Patient to Understand Lymphedema Yes Treatment and Exercises Decrease Girth Measurments by (cm) Yes: B LE total by 5 cm ea Jail Goals Number of Weeks 4 Decreased Palpation Tenderness Yes: 0/4 B lower legs Decrease Edema Yes: no pitting edema Decrease Subjective C/O Pain Yes: 7/10 at worst Patient to be Ind w/ HEP Yes Patient to be Ind w/ [place] Yes Compression Garments Patient to Adhere Lymphedema Precautions Yes Decrease Girth Measurments by (cm) Yes: B LE total by 15 cm ea Outpatient Therapy Plan of Care Treatment Plan May Include Therapeutic Exercise Including Home Yes Exercise Program Manual Therapy Techniques Yes Neuromuscular Re-education Yes Therapeutic Activities to Return to Yes Previous Functional/Work Level ADL/Self Care Education Yes Orthotics/Bracing/Splinting Yes Vasopneumatic Compression Pump Yes Manual Lymphatic Drainage Yes Eval/Re-Eval Yes Frequency Times per week 2 Duration Number of Weeks 4 Addendums This patient is a candidate for social No or vocational rehab? Patient/Guardian verbally acknowledges Yes understanding of treatment program and consents to further treatment? Patient/Guardian verbally acknowledges Yes understanding of diagnosis, prognosis and goals for treatment? Eval Complexity PT Charges 37195 - High Complexity PHYSICIAN CERTIFICATION: I certify the specified therapy services for Sy Barlow are required, authorized, and reviewed every 30 days.
--- NOTE | 2023-03-23 15:46 | HMH.RHREAS ---
Rehab Reassessment Rehab OP Re-assessment Start: 02/12/23 14:19 Freq: Status: Active Protocol: Document 03/23/23 15:42 DALIA (Rec: 03/23/23 15:46 DALIA [id number]) E-signed By Roland Costello, PT Rehab Re-assessment Subjective Subjective Pt reports, I missed a couple treatments because of all the snowy weather we had. I think I'm doing a little better though. Objective Objective Notes Circumferential Measurements: R LE total is 200.6 cm which is -13.5 cm since IE. L LE total is 237.2 cm which is -3.3 cm since IE. TTP: 03/04 B lower legs. Edema: 1+ pitting edema noted to B lower legs Assessment Progress Assessment Slower Than Expected Assessment Notes Pt has shown significant reduction of R LE overall edema, but minimal reduction of L LE overall edema. She continues to have difficulty with her ADLs due to swelling. She continues to need skilled intervention to return to prior level of function. Patient goals met ST,2,3,[address] LT,2,3,4,5,6,7 Revised Goals none Plan Plan Continue per initial POC. Frequency of Therapy 2 x/wk Duration of therapy 4 wks Time and Billing Re-Eval Time 13 Re-Eval Billing Units 1 PHYSICIAN CERTIFICATION: I certify the specified therapy services for Sy Barlow are required, authorized, and reviewed every 30 days.
--- NOTE | 2023-04-20 14:20 | HMH.RHREAS ---
Rehab Reassessment Rehab OP Re-assessment Start: 02/12/23 14:19 Freq: Status: Active Protocol: Document 04/20/23 14:17 [email or web address] (Rec: 04/20/23 14:20 PHOMARCO A [id number]) E-signed By Roland Costello, PT Rehab Re-assessment Subjective Subjective Pt reports she feels better with her swelling, but stays tender to palpation in the posterior knees on both legs. Objective Objective Notes Circumferential Measurements: R LE total is 189.5 cm which is -24.6 cm since IE. L LE total is 224.5 cm which is -16.0 cm since IE. TTP: 03/04 B lower legs. Edema: 1+ pitting edema noted to B lower legs Assessment Progress Assessment Progressing as Expected Assessment Notes Pt has shown significant reduction of B LE overall edema. She continues to have difficulty with her ADLs due to swelling. She continues to need skilled intervention to return to prior level of function. Patient goals met ST,2,3,4,5 Goals Not Met LT,2,3,4,5,6,7 Revised Goals none Plan Plan Continue per initial POC. Frequency of Therapy 1 x/wk Duration of therapy 4 wks Time and Billing Re-Eval Time 11 Re-Eval Billing Units 0 PHYSICIAN CERTIFICATION: I certify the specified therapy services for Sy Barlow are required, authorized, and reviewed every 30 days.
== END 2023-05-19 14:20 | disposition home or self-care (01) ==
LOC: PT 13:00
PROVIDERS: PCP Nurse Practitioner Family; Visit Provider Nurse Practitioner Family
DX: I89.0 Lymphedema, not elsewhere classified (principal)
CPT/HCPCS: 97140; 97163; 97164

== ENCOUNTER 2023-06-10 09:44 | Outpatient (CLI) | payer MEDICARE, SELFPAY ==
[2023-06-10 10:18] LABS: Basophils # 0.1 K/mm3 (0-0.2); Basophils % 0.8 % (0.1-2.0); Eosinophils # 0.7 K/mm3 (0.0-0.4); Eosinophils % 10.2 % (0.1-12.0); Hematocrit 39.8 % (37.0-47.0); Hemoglobin 12.5 g/dL (12.2-16.2); Lymphocytes # 1.8 K/mm3 (0.7-4.5); Lymphocytes % 26.6 % (10-50); Mean Corpuscular HGB Conc 31.4 g/dL (31.8-35.4); Mean Corpuscular Hemoglobin 31.6 pg (27.0-31.2); Mean Corpuscular Volume 100.8 fl (81-99); Mean Platelet Volume 8.5 fl (7.4-10.4); Monocytes # 0.4 K/mm3 (0.1-1.0); Monocytes % 5.3 % (1.7-9.3); Neutrophils # 3.8 K/mm3 (1.8-7.8); Neutrophils % 57.1 % (37.0-80.0); Platelet Count 302 K/mm3 (142-424); Red Blood Count 3.95 M/mm3 (4.20-5.40); Red Cell Distribution Width 13.6 % (11.5-17.5); White Blood Count 6.7 K/mm3 (4.8-10.8)
[2023-06-10 10:42] LABS: Erythrocyte Sedimentation Rate 23 mm/hr (0-30)
[2023-06-10 11:17] LABS: Alanine Aminotransferase 18 U/L (12-78); Albumin Level 3.6 g/dl (3.5-5.0); Albumin/Globulin Ratio 1.6 (1.1-1.8); Alkaline Phosphatase 51 U/L (38-126); Anion Gap 8.7 mEq/L (5-15); Aspartate Amino Transferase 42 U/L (14-36); Bilirubin,Total 0.5 mg/dl (0.2-1.3); Blood Urea Nitrogen 25 mg/dl (7-17); Calcium 8.8 mg/dl (8.4-10.2); Carbon Dioxide 28 mmol/L (22.0-30.0); Chloride 104 mmol/L (98-107); Estimated Glomerular Filt Rate 80 ml/min (>60); GFR (African American) 97 ML/MIN (>60); Globulin 2.3 g/dL (1.3-3.2); Glucose 113 mg/dl (74-100); Potassium 4.7 mmoL/L (3.5-5.1); Sodium 136 mmol/L (136-145); Total Protein,Serum 5.9 g/dl (6.3-8.2)
[2023-06-10 11:25] LABS: C-Reactive Protein 4.9 mg/L (0-4)
== END 2023-06-10 23:59 | disposition home or self-care (01) ==
LOC: LAB 09:46
PROVIDERS: PCP Nurse Practitioner Family; Visit Provider Internal Medicine Infectious Disease
DX: I87.2 Venous insufficiency (chronic) (peripheral) (principal); T84.54XD Infection and inflammatory reaction due to internal left knee prosthesis, subsequent encounter; L03.116 Cellulitis of left lower limb; E88.09 Other disorders of plasma-protein metabolism, not elsewhere classified; B95.1 Streptococcus, group B, as the cause of diseases classified elsewhere
CPT/HCPCS: 36415; 80053; 85025; 85651; 86140

== ENCOUNTER 2023-11-30 09:51 | Outpatient (CLI) | payer MEDICARE, SELFPAY ==
--- NOTE | 2023-11-30 09:56 | US_ITS ---
FINAL REPORT TECHNIQUE: Ultrasound images of the kidneys and bladder were obtained. CLINICAL HISTORY: RETOPERITONEUM-- fu cysts COMPARISON: 02/09/2023 FINDINGS: The right kidney measures 8.4 cm in length. There is a hypoechoic complex structure in the lower pole of the right kidney, also seen on the prior exam, which measures 3.1 x 2.7 cm in size, slightly smaller than on the prior exam. This remains an indeterminate mass. There is a 1.9 cm upper pole right renal cyst, which appears to represent a simple cyst. There is no hydronephrosis. The left kidney measures 8.2 cm in length. It is normal in echogenicity. There is no hydronephrosis. IMPRESSION: Complex right renal cyst again noted, slightly smaller than seen on the prior ultrasound of 02/09/2023. This remains an indeterminate mass and once again would recommend pre and postcontrast CT examination for further evaluation. Reviewed, Interpreted and Dictated by Alden Jones MD Transcribed by Chasidy Sarkar Authenticated and [facility]
== END 2023-11-30 23:59 | disposition home or self-care (01) ==
LOC: RAD 09:52
PROVIDERS: PCP Nurse Practitioner Family; Visit Provider Urology
DX: N28.1 Cyst of kidney, acquired (principal)
CPT/HCPCS: 76770

== ENCOUNTER 2023-12-07 10:19 | Outpatient (CLI) | payer MEDICARE, SELFPAY ==
[2023-12-07 10:55] LABS: Basophils # 0.1 K/mm3 (0-0.2); Basophils % 0.9 % (0.1-2.0); Eosinophils # 0.7 K/mm3 (0.0-0.4); Eosinophils % 10.8 % (0.1-12.0); Hematocrit 39.8 % (37.0-47.0); Hemoglobin 13.2 g/dL (12.2-16.2); Lymphocytes # 1.5 K/mm3 (0.7-4.5); Lymphocytes % 24.2 % (10-50); Mean Corpuscular HGB Conc 33.3 g/dL (31.8-35.4); Mean Corpuscular Hemoglobin 32.5 pg (27.0-31.2); Mean Corpuscular Volume 97.6 fl (81-99); Mean Platelet Volume 7.9 fl (7.4-10.4); Monocytes # 0.3 K/mm3 (0.1-1.0); Monocytes % 5.1 % (1.7-9.3); Neutrophils # 3.7 K/mm3 (1.8-7.8); Neutrophils % 58.8 % (37.0-80.0); Platelet Count 261 K/mm3 (142-424); Red Blood Count 4.08 M/mm3 (4.20-5.40); White Blood Count 6.3 K/mm3 (4.8-10.8)
[2023-12-07 11:09] LABS: Alanine Aminotransferase 14 U/L (12-78); Albumin Level 3.8 g/dl (3.5-5.0); Albumin/Globulin Ratio 1.5 (1.1-1.8); Alkaline Phosphatase 28 U/L (38-126); Anion Gap 8.7 mEq/L (5-15); Aspartate Amino Transferase 40 U/L (14-36); Bilirubin,Total 0.7 mg/dl (0.2-1.3); Blood Urea Nitrogen 32 mg/dl (7-17); Calcium 8.4 mg/dl (8.4-10.2); Carbon Dioxide 28 mmol/L (22.0-30.0); Chloride 101 mmol/L (98-107); Estimated Glomerular Filt Rate 60 ml/min (>60); GFR (African American) 73 ML/MIN (>60); Globulin 2.5 g/dL (1.3-3.2); Glucose 102 mg/dl (74-100); Potassium 4.7 mmoL/L (3.5-5.1); Sodium 133 mmol/L (136-145); Total Protein,Serum 6.3 g/dl (6.3-8.2)
[2023-12-07 13:03] LABS: Erythrocyte Sedimentation Rate 22 mm/hr (0-30)
== END 2023-12-07 23:59 | disposition home or self-care (01) ==
LOC: LAB 10:19
PROVIDERS: PCP Nurse Practitioner Family; Visit Provider Internal Medicine Infectious Disease
DX: T84.54XD Infection and inflammatory reaction due to internal left knee prosthesis, subsequent encounter (principal); L03.116 Cellulitis of left lower limb; I87.2 Venous insufficiency (chronic) (peripheral); B95.1 Streptococcus, group B, as the cause of diseases classified elsewhere
CPT/HCPCS: 36415; 80053; 85025; 85651; 86140

== ENCOUNTER 2024-05-30 10:24 | Outpatient (CLI) | payer MEDICARE, SELFPAY ==
[2024-05-30 10:59] LABS: Basophils % 0.5 % (0.1-2.0); Eosinophils # 0.4 K/mm3 (0.0-0.4); Eosinophils % 4.8 % (0.1-12.0); Hematocrit 40.6 % (37.0-47.0); Hemoglobin 13.1 g/dL (12.2-16.2); Lymphocytes # 1.8 K/mm3 (0.7-4.5); Mean Corpuscular HGB Conc 32.3 g/dL (31.8-35.4); Mean Corpuscular Hemoglobin 31.9 pg (27.0-31.2); Mean Corpuscular Volume 98.8 fl (81-99); Mean Platelet Volume 9.5 fl (7.4-10.4); Monocytes # 0.7 K/mm3 (0.1-1.0); Monocytes % 8.8 % (1.7-9.3); Neutrophils % 62.6 % (37.0-80.0); Platelet Count 285 K/mm3 (142-424); Red Blood Count 4.11 M/mm3 (4.20-5.40); Red Cell Distribution Width 12.3 % (11.5-17.5); White Blood Count 7.9 K/mm3 (4.8-10.8)
[2024-05-30 11:27] LABS: Erythrocyte Sedimentation Rate 18 mm/hr (0-30)
[2024-05-30 11:40] LABS: Alanine Aminotransferase 16 U/L (12-78); Albumin Level 3.6 g/dl (3.5-5.0); Albumin/Globulin Ratio 1.5 (1.1-1.8); Alkaline Phosphatase 32 U/L (38-126); Anion Gap 9.7 mEq/L (5-15); Aspartate Amino Transferase 33 U/L (14-36); Bilirubin,Total 0.5 mg/dl (0.2-1.3); Blood Urea Nitrogen 31 mg/dl (7-17); Calcium 8.6 mg/dl (8.4-10.2); Carbon Dioxide 28 mmol/L (22.0-30.0); Chloride 102 mmol/L (98-107); Estimated Glomerular Filt Rate 69 ml/min (>60); GFR (African American) 83 ML/MIN (>60); Globulin 2.4 g/dL (1.3-3.2); Glucose 94 mg/dl (74-100); Potassium 4.7 mmoL/L (3.5-5.1); Sodium 135 mmol/L (136-145)
[2024-05-30 11:45] LABS: C-Reactive Protein 2.7 mg/L (0-4)
== END 2024-05-30 23:59 | disposition home or self-care (01) ==
LOC: LAB 10:25
PROVIDERS: PCP Nurse Practitioner Family; Visit Provider Internal Medicine Infectious Disease
DX: T84.54XD Infection and inflammatory reaction due to internal left knee prosthesis, subsequent encounter (principal); B95.1 Streptococcus, group B, as the cause of diseases classified elsewhere; A40.1 Sepsis due to streptococcus, group B; I87.2 Venous insufficiency (chronic) (peripheral)
CPT/HCPCS: 36415; 80053; 85025; 85651; 86140

== ENCOUNTER 2024-06-06 13:04 | Outpatient (CLI) | payer MEDICARE, SELFPAY ==
--- NOTE | 2024-06-06 13:07 | US_ITS ---
FINAL REPORT CLINICAL HISTORY: Right renal cyst follow-up COMPARISON: 11/30/2023, 02/09/2023 FINDINGS: RENAL ULTRASOUND Ultrasound images of the kidneys were obtained. The right kidney measures 9.0 cm in length. It is normal echogenicity. There is no hydronephrosis. There is a 16mm upper pole simple cyst which is unchanged. There is a 16mm hypoechoic lesion in the midpole with internal echoes. This probably represents a complex cyst and previously measured 15 mm. There is a lower pole septated lesion which is likely a complex cyst measuring up to 36 mm. This is unchanged from January 2023 The left kidney measures 8.3 cm in length. It is normal echogenicity. There is no hydronephrosis. IMPRESSION: No significant change in right renal lesions which are likely a combination of simple and complex cysts. Reviewed, Interpreted and Dictated by Georgina Camacho MD Transcribed by Caren Al Authenticated and [facility]
--- OUTSIDE RECORDS SUMMARY | 2024-06-08 21:14 | XMS_ITS | Clinical Summary ---
Author Organization [facility] Address [address] [place] [address] Phone Care Team Providers Care Keg Filler Name Role Phone LANDEN CORADO, VERONICA Unavailable [phone] Dany CORADO, Riaz Watkins Unavailable U Flavia Garcia APRN Primary Care Provid er Unavailable Reason for Visit and Chief Complaint The Chief Complaint is: LT shoulder pain Problems Includes: Problems addressed during this encounter and other active Problems Current Visit Onset Date Resolved Date Provider Conditio n Status Joint Pain, Localized in the Left Shoulder 04/10/2024 Yusef Doshi PA-C Active Last Documented On 5 10:53AM ; [facility] Past Visits Onset Date Resolved Date Provider Condition Status Joint Pain in the Left Hip 11/26/2022 Riaz Saezn MD Active Last Documented On 3 12:19PM ; [facility] History of Joint Pain in the Left Knee 11/14/2020 Riaz Saenz MD Ac tive Last Documented On 1 1:02PM ; [facility] Joint Pain, Localized in the Shoulder 06/29/2018 Steven Saavedra MD Active Last Documented On 9 1:58PM ; [facility] Joint Pain in the Left Knee 07/23/2016 Patrice Saenz MD Active Last Documented On 7 1:23PM ; [facility] Plan of Treatment - Patient screened for future fall risk: documentation of any fall with injury in past year - Last Documented On 04/10/2024 11:39AM ; [facility] Future Appointments Date Time Location Provi ofelia Follow Up 07/10/2024 11:00AM [facility] Yusef Doshi PA-C Last Documented On 11:44AM ; [facility] Follow Up 11/30/2024 11:30AM [facility] PS C Riaz Saenz MD Last Documented On 2:30PM ; [facility] Instructions to patient Lose weight Last Documented On 11:06AM ; [facility] Assessments Includes: Assessments from this encounter Findings - Overweight - Last Documented On 04/10/2024 11:39AM ; [facility] Instructions Includes: Instructions from this encounter Instructions to patient Lose weight Last Documented On 11:06AM ; [facility] Medical Equipment - Implanted Devices Includes: Current Devices No Medical Equipment Recorded Medications Includes: Medications discussed during this encounter and other current Medications Current Medications (continue as prescribed) Cephalexin 125 MG/5ML Oral Suspension Reconstituted Provider: Diagnosis: Last Documented On 10:55AM By Raina Wilde [facility] Zyzal Oral Tablet 04/10/2024 Provider: Diagnosis: Last Documented On 10:54AM By Raina Wilde [facility] Turmeric Curcumin 500 MG Oral Capsule 04/10/2024 Provider: Diagnosis: Last Documented On 10:56AM By Raina Wilde [facility] Potassium Oral Tablet 04/10/2024 Provider: Diagnosis: Last Documented On 10:56AM By Raina Wilde [facility] Crestor 10 MG Oral Tablet 04/10/2024 Provider: Diagnosis: Last Documented On 10:55AM By Raina Wilde [facility] Cymbalta 20 MG Oral Capsule Delayed Release Particles 04/10/2024 Provider: Diagnosis: Last Documented On 10:55AM By Raina Wilde [facility] HYDROcodone-Acetaminophen 7. 5-325 MG Oral Tablet 04/07/2024 Provider: Sonido Seo MD Diagnosis: Last Documented On 5 10:54AM By Raina Gonzales ; [facility] Lisinopril 5 MG Oral Tablet 04/06/2024 Provider: VERONICA SCHUSTER MD Diagnosis: Last Documented On 5 10:54AM By Raina Gonzales ; [facility] Doxycycline Monohydrate 100 MG Oral Capsule 03/28/2024 Provider: Diagnosis: Last Documented On 5 10:54AM By Raina Gonzales ; [facility] Potassium Chloride Fiona ER 2 0 MEQ Oral Tablet Extended Release 03/27/2024 Provider: Flavia Gomez APRN Diagnosis: Last Documented On 5 10:54AM By Raina Gonzales ; [facility] Diclofenac Sodium 75 MG Oral Tablet Delayed Release 03/12/2024 Provider: VERONICA SCHUSTER MD Diagnosis: Last Documented On 5 10:54AM By Raina Gonzales ; [facility] Furosemide 40 MG Oral Tablet 03/12/2024 Provider: VERONICA SCHUSTER MD Diagnosis: Last Documented On 5 10:54AM By Raina Gonzales ; [facility] Levocetirizine Dihydrochlori de 5 MG Oral Tablet 03/12/2024 Provider: VERONICA SCHUSTER MD Diagnosis: Last Documented On 5 10:54AM By Raina Gonzales ; [facility] Synthroid 100 MCG Oral Tablet 03/12/2024 Provider: VERONICA SCHUSTER MD Diagnosis: Last Documented On 5 10:54AM By Raina Gonzales ; [facility] Rosuvastatin Calcium 10 MG Oral Tablet 03/12/2024 Pr ovider: VERONICA SCHUSTER MD Diagnosis: Last Documented On 5 10:54AM By Raina Gonzales ; [facility] DULoxetine HCl 60 MG Oral Ca psule Delayed Release Particles 03/12/2024 Provider: VERONICA SCHUSTER MD Diagnosis: Last Documented On 5 10:54AM By Raina Gonzales ; [facility] HYDROcodone-Acetaminophen 7. 5-325 MG Oral Tablet 03/03/2024 Provider: Sonido Seo MD Diagnosis: Last Documented On 5 10:54AM By Raina Gonzales ; [facility] Caltrate 600 1500 (600 Ca) MG Oral Tablet 11/27/2022 Provider: Diagnosis: Last Documented On 3 11:00AM By Sam Saenz ; [facility] B Complex-B12 Oral Tablet 11/27/2022 Provider: Diagnosis: Last Documented On 3 10:59AM By Sam Saenz ; [facility] HYDROcodone-Acetaminophen 7. 5-325 MG Oral Tablet 11/18/2022 Provider: Sonido Seo MD Diagnosis: Last Documented On 3 10:57AM By Sam Saenz ; [facility] Daily Multivitamin Oral Capsule 11/20/2021 Provider: Diagnosis: Last Documented On 2 11:05AM By Catrachita Hickman ; [facility] MiraLax 17 GM Oral Packet 11/20/2021 Provider: Diagnosis: Last Documented On 2 11:04AM By Catrachita Hickman ; [facility] Voltaren 1% External Gel 11/20/2021 Provider: Diagnosis: Last Documented On 2 11:04AM By Catrachita Hickman ; [facility] QC Tumeric Complex 500 MG Oral Capsule 11/20/2021 Pr ovider: Diagnosis: Last Documented On 2 11:03AM By Catrachita Hickman ; [facility] Cymbalta 20 MG Oral Capsule Delayed Release Particles 11/20/2021 Provider: Diagnosis: Last Documented On 2 11:02AM By Catrachita Hickman ; [facility] Crestor 10 MG Oral Tablet 11/20/2021 Provider: Diagnosis: Last Documented On 2 11:02AM By Catrachita Hickman ; [facility] Adult Aspirin Regimen 81 MG Oral Tablet Delayed Releas e 11/20/2021 Provider: Diagnosis: Last Documented On 2 11:02AM By Catrachita Hickman ; [facility] Magnesium 250 MG Oral Tablet 11/20/2021 Provider : Diagnosis: Last Documented On 2 11:03AM By Catrachita Hickman ; [facility] Vitamin D3 1.25 MG (02624 UT) Oral Capsule 11/20/2021 Provider: Diagnosis: Last Documented On 2 11:03AM By Catrachita Hickman ; [facility] CoQ-10 100 MG Oral Capsule 11/20/2021 Provider: Diagnosis: Last Documented On 2 11:03AM By Catrachita Hickman ; [facility] Xyzal Allergy 24HR 5 MG Oral Tablet 11/20/2021 Provi ofelia: Diagnosis: Last Documented On 2 11:01AM By Catrachita Hickman ; [facility] Synthroid 100 MCG Oral Tablet 11/20/2021 Provider: Diagnosis: Last Documented On 2 11:01AM By Catrachita Hickman ; [facility] Doxycycline Hyclate 100 MG Oral Capsule 11/17/2021 P rovider: Diagnosis: Last Documented On 2 11:02AM By Catrachita Hickman ; [facility] Diclofenac Sodium 75 MG Oral Tablet Delayed Release 10/17/2021 Provider: VERONICA SCHUSTER MD Diagnosis: Last Documented On 2 11:02AM By Catrachita Hickman ; [facility] Cephalexin 500 MG Oral Capsule 10/14/2021 Provider: Diagnosis: Last Documented On 2 11:02AM By Catrachita Hickman ; [facility] Potassium Chloride Fiona ER 2 0 MEQ Oral Tablet Extended Release 09/24/2021 Provider: VERONICA SCHUSTER MD Diagnosis: Last Documented On 2 11:02AM By Catrachita Hickman ; [facility] Furosemide 40 MG Oral Tablet 07/14/2021 Provider: Kaycee Robin MD Diagnosis: Last Documented On 2 11:02AM By Catrachita Hickman ; [facility] Lisinopril 5 MG Oral Tablet 06/20/2021 Provider: Kaycee Robin MD Diagnosis: Last Documented On 2 11:00AM By Catrachita Hickman ; [facility] Past Medications on file traMADol HCl 50 MG Oral Tablet 11/20/2021 - 12/05/2021 Provider: Riaz valentine MD Diagnosis: 1 po q 6 to 8 hrs prn pain Last Documented On 2 11:46AM By Sam Saenz ; [facility] Neurontin 300 MG Oral Capsule 08/27/2020 - 11/25/2020 Provider: Riaz valentine MD Diagnosis: 1 every bedtime Last Documented On 1 1:34PM By Sam Saenz ; [facility] Ultram 50 MG Oral Tablet 08/27/2020 - 09/01/2020 Provider: Riaz valentine MD Diagnosis: 1-2 po q6h prn pain Last Documented On 1 1:34PM By Sam Saenz ; [facility] oxyCODONE HCl 10 MG Oral Tablet 08/27/2020 - 09/06/2020 Provider: Riaz valentine MD Diagnosis: 1-2 po q 4-6h Last Documented On 1 1:34PM By Sam Saenz ; [facility] Acetaminophen 500 MG Oral Tablet 08/22/2020 - 09/21/2020 Provider: Riaz Saenz MD Diagnosis: 2 three times a day DNF UNTIL SX 08/20/20 Last Documented On 1 9:48AM By Sam Saenz ; [facility] Ultram 50 MG Oral Tablet 08/22/2020 - 08/27/2020 Provider: Riaz valentine MD Diagnosis: 1-2 po q6h prn pain Last Documented On 1 9:53AM By Sam Saenz ; [facility] oxyCODONE HCl 10 MG Oral Tablet 08/22/2020 - 09/01/2020 Provider: Riaz valentine MD Diagnosis: 1-2 po q 4-6h Last Documented On 1 9:53AM By Sam Saenz ; [facility] Neurontin 300 MG Oral Capsule 08/22/2020 - 11/20/2020 Provider: Riaz valentine MD Diagnosis: 1 every bedtime Last Documented On 1 9:53AM By Sam Saenz ; [facility] Colace 100 MG Oral Capsule 08/22/2020 - 11/20/2020 Provider: Riaz valentine MD Diagnosis: 1-2 tabs daily DNF UNTIL SX 08/20/20 Last Documented On 1 9:49AM By Sam Saenz ; [facility] Ultram 50 MG Oral Tablet 08/14/2020 - 08/19/2020 Provider: Riaz valentine MD Diagnosis: 1-2 po q6h prn pain DNF UNTIL SX 08/20/20 Last Documented On 1 2:19PM By Sam Saenz ; [facility] oxyCODONE HCl 5 MG Oral Tablet 08/14/2020 - 08/19/2020 Provider: Riaz valentine MD Diagnosis: 1-2 po q 4-6h DNF UNTIL SX 08/20/20 Last Documented On 1 2:03PM By Sam Saenz ; [facility] Neurontin 300 MG Oral Capsule 08/14/2020 - 11/12/2020 Provider: Riaz valentine MD Diagnosis: 1 every bedtime DNF UNTIL SX 08/20/20 Last Documented On 1 2:03PM By Sam Saenz ; [facility] Ultram 50 MG Oral Tablet 07/18/2020 - 07/28/2020 Provider: Riaz valentine MD Diagnosis: 1-2 po q6h prn pain Last Documented On 1 10:01AM By Sam Saenz ; [facility] oxyCODONE HCl 10 MG Oral Tablet 07/18/2020 - 07/28/2020 Provider: Riaz valentine MD Diagnosis: take as directed; take 1-2 t ablets po q 8 hours prn pain Last Documented On 1 10:01AM By Sam Saenz ; [facility] oxyCODONE HCl 5 MG Oral Tablet 10/26/2019 - 11/05/2019 Provider: Riaz valentine MD Diagnosis: Take 1 tablet every 8 hrs prn pain Last Documented On 0 3:34PM By Sliva Sheridan ; [facility] oxyCODONE HCl 5MG Oral Tablet 10/06/2018 - 10/11/2018 Provider: Camilo skinner MD Diagnosis: 1-2 po q6h prn pain Last Documented On 9 11:59AM By Silva Sheridan ; [facility] oxyCODONE HCl 5MG Oral Tablet 09/08/2018 - 09/13/2018 Provider: Riaz valentine MD Diagnosis: 1-2 po q6h prn pain Last Documented On 9 10:08AM By Oma Child ; [facility] Colace 100MG Oral Capsule 08/17/2018 - 11/15/2018 Provider: Riaz valentine MD Diagnosis: 1-2 tabs daily FOR SURGERY DO NOT FILL UNTIL 08/22/18 Last Documented On 9 8:57AM By Lorena Mijares ; [facility] Acetaminophen 500MG Oral Tablet 08/17/2018 - 09/16/2018 Provider: Riaz Saenz MD Diagnosis: 2 three times a day FOR RODRIGUEZ RGERY DO NOT FILL UNTIL 08/22/18 Last Documented On 9 8:56AM By Lorena Mijares ; [facility] traMADol HCl 50MG Oral Tablet 08/17/2018 - 08/22/2018 Provider: Riaz valentine MD Diagnosis: 1-2 po q6h prn pain FOR RODRIGUEZ RGERY DO NOT FILL UNTIL 08/22/18 Last Documented On 9 8:57AM By Lorena Mijares ; [facility] oxyCODONE HCl 5MG Oral Tablet 08/17/2018 - 08/22/2018 Provider: Riaz valentine MD Diagnosis: 1-2 po q6h prn pain FOR RODRIGUEZ RGERY DO NOT FILL UNTIL 08/22/18 Last Documented On 9 8:57AM By Lorena Mijares ; [facility] Neurontin 300MG Oral Capsule 08/17/2018 - 11/15/2018 Provider: Riaz valentine MD Diagnosis: 1 every bedtime FOR SURGER Y DO NOT FILL UNTIL 08/22/18 Last Documented On 9 8:57AM By Lorena Mijares ; [facility] Dilaudid 2MG Oral Tablet 08/17/2018 - 08/19/2018 Provi ofelia: Riaz Saenz MD Diagnosis: 1-2 po q6h prn pain (RESCUE PAIN)FOR SURGERY DO NOT FILL UNTIL 08/22/18 Last Documented On 9 8:57AM By Lorena Mijares ; [facility] Mupirocin 2% External Ointment 07/22/2018 - 07/27/2018 Provider: Riaz valentine MD Diagnosis: Apply to nostrils 3 times a day 5 days prior to surgery. Last Documented On 9 1:17PM By Silva Sheridan ; [facility] OxyCODONE HCl 5MG Oral Tablet 11/13/2016 - 12/13/2016 Provider: Stan Romero MD Diagnosis: 1-2 po q 4-6h, post op Last Documented On 7 9:34AM By Maira Booker ; [facility] OxyCODONE HCl 5 MG Tablet 10/19/2016 - 10/29/2016 Prov ider: Riaz Saenz MD Diagnosis: 1-2 po q 4-6h FOR SURGERY Last Documented On 7 11:41AM By Sravanthi Elizondo ; [facility] Neurontin 300 MG Capsule 10/19/2016 - 01/17/2017 Provi ofelia: Riaz Saenz MD Diagnosis: 1 every bedtime FOR SURGERY Last Documented On 7 11:41AM By Sravanthi Elizondo ; [facility] Mobic 15 MG Tablet 10/19/2016 - 11/18/2016 Provider: Riaz Saenz MD Diagnosis: once a day FOR SURGERYDO N OT FILL TILL 10/26/16 Last Documented On 7 11:51AM By Sravanthi Elizondo ; [facility] Colace 100 MG Capsule 10/19/2016 - 01/17/2017 Provider : Riaz Saenz MD Diagnosis: 1-2 tabs daily FOR SURGERY * *DO NOT FILL TILL 10/26/16 Last Documented On 7 11:51AM By Sravanthi Elizondo ; [facility] Acetaminophen 500 MG Tablet 10/19/2016 - 10/27/2016 Pr ovider: Riaz Saenz MD Diagnosis: 2 three times a day FOR SURG ANITHADO NOT FILL TILL 10/26/16 Last Documented On 7 11:51AM By Sravanthi Elizondo ; [facility] TraMADol HCl 50 MG Tablet 10/19/2016 - 11/01/2016 Provider: Riaz valentine MD Diagnosis: 2 tablets every 6 hours FOR SURGERY Last Documented On 7 11:42AM By Sravanthi Elizondo ; [facility] Medications Administered Includes: Administered Medications from this encounter No Administered Medications Recorded Vital Signs Includes: Vital Signs from this encounter Vital Name 04/10/2024 11:06A Height (in) 59 Weight (lb) 200 Body Mass Index 40.4 Body Surface Area 1.8 Note: bfj Last Documented: On 04/10/2024 11:07A M ; [facility] Results Includes: Results discussed during this encounter No Results Recorded For Specified Dates History of Present Illness Includes: History of Present Illness from this encounter HPI Sy Barlow is an 83 year old female. - Symptoms pain worse with heat pain better with gel?. - Allergy list reviewed - Problem list reviewed - Medication list reviewed - Previous history of new onset pain Injury is not work related or an automotive accident - Sharp pain Symptoms - Pain is constant (100% of the time) - Patient pain level from 1-10: 9 - Yes, previous treatment. - History of Injections - - Review of medications documented Patient is seen today for her left shoulder pain. She was seen by us in the past for roughly 2019 4 shoulder pain. She had an injection at that time. she had a proximal humerus fracture that was fixed with what sounds like either plate and screws or tension-band wiring. She had avascular necrosis develop. She was taken to the OR for hemiarthroplasty. This was done by Dr. Peng. PHYSICAL EXAMINATION: Her exam today shows elevation to 70-80 degrees with scapular substitution. External rotation is about 20 to 30 degrees. Palpable pulse. Fingers are warm and well perfused. Internal rotation is severely limited. Infraspinatus strength is 4+/5. Subscapularis is equivocal, secondary to loss of motion. Neurologically intact. Palpable pulse. Incision is healed. There is no erythema, induration, or drainage. IMAGING: X-rays show a statically luxated hemiarthroplasty. There is severe anterior erosion. There is shortening. The hemiarthroplasty appears to be significantly anteverted. There is also appears to be superior migration A complete stable and dynamic exam of the left shoulder was performed with ultrasound ASSESSMENT: Hemiarthroplasty failure. The patient is not a good surgical candidate. She is not interested in anything surgical. This would be a very complex surgical procedure if necessary. PLAN: We are going to proceed with injection. I understand risks and benefits of injection. I have talked with the patient about this, including bleeding, infection, damage to nerves and blood vessels, skin depigmentation, and fat atrophy. We will see her back as needed PROCEDURE NOTE: Shoulder was prepped sterilely with Betadine. We then discussed risks and benefits of injection. This was done with ultrasound under extreme sterile conditions. We obtained verbal consent. We then injected a mixture of lidocaine, Marcaine, and 40 mg Kenalog which was injection intra-articularly using ultrasound guidance. The patient tolerated the procedure well. which she said was beneficial. Social History Description Last Updated Exercising regularly 11/27/2022 Last Documented On 5 10:57AM ; [facility] Tobacco non-user 11/20/2021 Last Documented On 5 10:57AM ; [facility] No recent change in diet 06/19/2021 Last Documented On 5 10:57AM ; [facility] Not a current smoker. 06/19/2021 Last Documented On 5 10:57AM ; [facility] Not a current smoker. 05/02/2020 Last Documented On 5 10:57AM ; [facility] Non-smoker 02/01/2020 Last Documented On 5 10:57AM ; [facility] Caffeine use 07/23/2016 Last Documented On 5 10:57AM ; [facility] No recent change in diet 07/23/2016 Last Documented On 5 10:57AM ; [facility] Not a current smoker 07/23/2016 Last Documented On 5 10:57AM ; [facility] Not using alcohol 07/23/2016 Last Documented On 5 10:57AM ; [facility] Not using drugs 07/23/2016 Last Documented On 5 10:57AM ; [facility] No tobacco use 07/23/2016 Last Documented On 5 10:57AM ; [facility] Smoking status : Never smoker 07/23/2016 Last Documented On 5 10:57AM ; [facility] Procedures and Surgical History Includes: Procedures from this encounter Procedures Code Diagnosis Performing Provider Service Location Service Date INJECTION MAJOR JOINT WITH ULTRASOUND GUIDANCE (LEFT) Primary osteoarthritis, left shoulder Steven Saavedra MD [facility] 04/10/2024 Last Documented On 5 4:32PM ; [facility] Triamcinolone/Kenalog, 10mg per cc [id number] Primary osteoarthritis, left shoulder Steven Saavedra MD [facility] 04/10/2024 Last Documented On 5 4:32PM ; [facility] X-RAY EXAM OF SHOULDER 2-3 VIEWS (LEFT) [id number] Primary osteoarthritis, left shoulder Steven Saavedra MD [facility] 04/10/2024 Last Documented On 5 4:32PM ; [facility] X-ray [id number] Last Documented On 5 11:03AM ; [facility] Surgical History Last Updated History of shoulder arthroplasty 017 Last Documented On 5 10:57AM ; [facility] History of total knee arthroplasty 07/23 Last Documented On 5 10:57AM ; [facility] Medical History Includes: Medical History addressed during this encounter Description Last Updated History of Anemia 04/10/2024 Last Documented On 5 11:39AM ; [facility] History of Fractures 04/10/2024 Last Documented On 5 11:39AM ; [facility] History of Hypertension 04/10/2024 Last Documented On 5 11:39AM ; [facility] History of arthritis 11/27/2022 Last Documented On 5 10:57AM ; [facility] History of History of Blood Transfusion 11/27/2022 Last Documented On 5 10:57AM ; [facility] History of Sleep Apnea 11/27/2022 Last Documented On 5 10:57AM ; [facility] History of Thyroid Disease 11/27/2022 Last Documented On 5 10:57AM ; [facility] Use of CPAP 11/27/2022 Last Documented On 5 10:57AM ; [facility] Anemia 05/02/2020 Last Documented On 5 10:57AM ; [facility] Arthritis 05/02/2020 Last Documented On 5 10:57AM ; [facility] Heartburn / Acid Reflux 05/02/2020 Last Documented On 5 10:57AM ; [facility] History of Blood Transfusion 05/02/2020 Last Documented On 5 10:57AM ; [facility] Hypertension 05/02/2020 Last Documented On 5 10:57AM ; [facility] Irregular Heartbeat 05/02/2020 Last Documented On 5 10:57AM ; [facility] Recent immunization for flu 05/02/2020 Last Documented On 5 10:57AM ; [facility] Sleep Apnea 05/02/2020 Last Documented On 5 10:57AM ; [facility] Use of CPAP 05/02/2020 Last Documented On 5 10:57AM ; [facility] high cholesterol, acid reflu x, irregular heartbeat, blood transfusion, cataracs, anemia 08/17/2019 Last Documented On 5 10:57AM ; [facility] History of asthma 06/09/2018 Last Documented On 5 10:57AM ; [facility] A previous fracture 07/23/2016 Last Documented On 5 10:57AM ; [facility] A recent immunization for pneumococcal p neumonia 07/23/2016 Last Documented On 5 10:57AM ; [facility] Arthritic joint problems 07/23/2016 Last Documented On 5 10:57AM ; [facility] History of osteoporosis 07/23/2016 Last Documented On 5 10:57AM ; [facility] Intermittent hypertension 07/23/2016 Last Documented On 5 10:57AM ; [facility] [facility] Thyroid disease 07/23/2016 Last Documented On 5 10:57AM ; [facility] A recent injection 07/23/2016 Last Documented On 5 10:57AM ; [facility] Family History Includes: Family History addressed during this encounter Description Last Updated Family history of hypertension 0 Last Documented On 5 10:57AM ; [facility] Family history of osteoporosis 0 Last Documented On 5 10:57AM ; [facility] Family history of cancer 06/09/2018 Last Documented On 5 10:57AM ; [facility] Stroke/seizure 12/17/2016 Last Documented On 5 10:57AM ; [facility] Stroke/seizure: maternal history 017 Last Documented On 5 10:57AM ; [facility] Maternal history of hypertension 017 Last Documented On 5 10:57AM ; [facility] Maternal history of osteoporosis 017 Last Documented On 5 10:57AM ; [facility] Paternal history of family history of ca ncer 07/23/2016 Last Documented On 5 10:57AM ; [facility] Review of Systems Includes: Review of Systems from this encounter Systemic: Not feeling tired and no recent weight loss. Recent weight gain. Head: No headache and no sinus pain. Eyes: No vision problems. Cataracts. No Glasses/Contacts and no Glaucoma. Otolaryngeal: Hearing loss. No tinnitus. Cardiovascular: No chest pain or discomfort and no palpitations. Hypertension and High Cholesterol. Pulmonary: No daytime asthma symptoms and no chronic cough. No wheezing. Gastrointestinal: No heartburn and no abdominal pain. No Indigestion, no Peptic Ulcer, no GI Stomach Bleed, no Ulcers, and no Acid Reflux. Endocrine: No hot flashes. Muscle weakness. No Diabetes and no Hypothyroid. Hyperthyroid. Hematologic: No easy bleeding. A tendency for easy bruising. No Anemia. Musculoskeletal: Arthritis. No lower back pain. Soft tissue swelling and pain localized to one or more joints. Neurological: No dizziness, no convulsions, and no numbness. Psychological: No anxiety, no emotional lability, no depression, and no insomnia. Not crying for no reason. Skin: No dry skin. No Ulcers. Scars. No rash. Allergic and Immunologic: Complaint of seasonal allergic reaction. Mental Status Includes: Mental Status from this encounter Description No anxiety Functional Status Includes: Functional Status from this encounter No Functional Status Recorded Physical Exam Includes: Physical Exam from this encounter Allergies Includes: Active Allergies Substance Type Reaction Onset Date Resolved Date Statu s Penicillin G Benzathine Allergy 06/09/2018 Active Last Documented On 5 10:57AM ; [facility] Naproxen Allergy 06/09/2018 Active Last Documented On 5 10:57AM ; [facility] Mobic Allergy 06/09/2018 Active Last Documented On 5 10:57AM ; [facility] Encounters Encounter Provider Location Date Check-In Time Check-Out Time Diagnosis Physician Specified Yusef Doshi PA-C [facility] 04/10/19 25 10:31AM 11:35AM Overweight Insurance Includes: Active Insurance Policies Plan Name Member ID Group # Subscriber Relationship Effect ivan Dates 1 - [facility] [id number] Sy Nava 03/01/2016 - Unknown Clinical Notes Includes: Clinical Notes from this encounter * Progress note Date Encounter Last Documented by 04/10/2024 Physician Specified Last prashanth varela on 04/10/2024; 11:39 AM, Yusef Doshi PA-C; [facility] Active Problems & Conditions - History of Joint Pain in the Left Knee - Joint Pain in the Left Hip - Joint Pain in the Left Knee - Joint Pain, Localized in the Left Shoulder - Joint Pain, Localized in the Shoulder Chief Complaint The Chief Complaint is: LT shoulder pain. Referred Here Referred by. History of Present Illness Sy Barlow is an 83 year old female. - Symptoms pain worse with heat pain better with gel?. - Allergy list reviewed - Problem list reviewed - Medication list reviewed - Previous history of new onset pain Injury is not work related or an automotive accident - Sharp pain Symptoms - Pain is constant (100% of the time) - Patient pain level from 1-10: 9 - Yes, previous treatment. - History of Injections - - Review of medications documented Patient is seen today for her left shoulder pain. She was seen by us in the past for roughly 2019 4 shoulder pain. She had an injection at that time. she had a proximal humerus fracture that was fixed with what sounds like either plate and screws or tension-band wiring. She had avascular necrosis develop. She was taken to the OR for hemiarthroplasty. This was done by Dr. Peng. PHYSICAL EXAMINATION: Her exam today shows elevation to 70-80 degrees with scapular substitution. External rotation is about 20 to 30 degrees. Palpable pulse. Fingers are warm and well perfused. Internal rotation is severely limited. Infraspinatus strength is 4+/5. Subscapularis is equivocal, secondary to loss of motion. Neurologically intact. Palpable pulse. Incision is healed. There is no erythema, induration, or drainage. IMAGING: X-rays show a statically luxated hemiarthroplasty. There is severe anterior erosion. There is shortening. The hemiarthroplasty appears to be significantly anteverted. There is also appears to be superior migration A complete stable and dynamic exam of the left shoulder was performed with ultrasound ASSESSMENT: Hemiarthroplasty failure. The patient is not a good surgical candidate. She is not interested in anything surgical. This would be a very complex surgical procedure if necessary. PLAN: We are going to proceed with injection. I understand risks and benefits of injection. I have talked with the patient about this, including bleeding, infection, damage to nerves and blood vessels, skin depigmentation, and fat atrophy. We will see her back as needed PROCEDURE NOTE: Shoulder was prepped sterilely with Betadine. We then discussed risks and benefits of injection. This was done with ultrasound under extreme sterile conditions. We obtained verbal consent. We then injected a mixture of lidocaine, Marcaine, and 40 mg Kenalog which was injection intra-articularly using ultrasound guidance. The patient tolerated the procedure well. which she said was beneficial. Current Medication - Adult Aspirin Regimen 81 MG Oral Tablet Delayed Release 0 days, 0 refills - B Complex-B12 Oral Tablet 0 days, 0 refills - Caltrate 600 1500 (600 Ca) MG Oral Tablet 0 days, 0 refills - Cephalexin 125 MG/5ML Oral Suspension Reconstituted 0 days, 0 refills - Cephalexin 500 MG Oral Capsule 30 days, 0 refills - CoQ-10 100 MG Oral Capsule 0 days, 0 refills - Crestor 10 MG Oral Tablet 0 days, 0 refills - Crestor 10 MG Oral Tablet 0 days, 0 refills - [facility] Magnesium 250 MG Oral Tablet 0 days, 0 refills - [facility] Turmeric Curcumin 500 MG Oral Capsule 0 days, 0 refills - Cymbalta 20 MG Oral Capsule Delayed Release Particles 0 days, 0 refills - Cymbalta 20 MG Oral Capsule Delayed Release Particles 0 days, 0 refills - Daily Multivitamin Oral Capsule 0 days, 0 refills - Diclofenac Sodium 75 MG Oral Tablet Delayed Release 90 days, 0 refills - Diclofenac Sodium 75 MG Oral Tablet Delayed Release 90 days, 0 refills - Doxycycline Hyclate 100 MG Oral Capsule 30 days, 0 refills - Doxycycline Monohydrate 100 MG Oral Capsule 90 days, 0 refills - DULoxetine HCl 60 MG Oral Capsule Delayed Release Particles 90 days, 0 refills - Furosemide 40 MG Oral Tablet 30 days, 0 refills - Furosemide 40 MG Oral Tablet 90 days, 0 refills - HYDROcodone-Acetaminophen 7.5-325 MG Oral Tablet 30 days, 0 refills - HYDROcodone-Acetaminophen 7.5-325 MG Oral Tablet 30 days, 0 refills - HYDROcodone-Acetaminophen 7.5-325 MG Oral Tablet 30 days, 0 refills - Levocetirizine Dihydrochloride 5 MG Oral Tablet 90 days, 0 refills - Lisinopril 5 MG Oral Tablet 30 days, 0 refills - Lisinopril 5 MG Oral Tablet 90 days, 0 refills - MiraLax 17 GM Oral Packet 0 days, 0 refills - Potassium Chloride Fiona ER 20 MEQ Oral Tablet Extended Release 90 days, 0 refills - Potassium Chloride Fiona ER 20 MEQ Oral Tablet Extended Release 90 days, 0 refills - Potassium Oral Tablet 0 days, 0 refills - QC Tumeric Complex 500 MG Oral Capsule 0 days, 0 refills - Rosuvastatin Calcium 10 MG Oral Tablet 90 days, 0 refills - Synthroid 100 MCG Oral Tablet 0 days, 0 refills - Synthroid 100 MCG Oral Tablet 90 days, 0 refills - Vitamin D3 1.25 MG (34720 UT) Oral Capsule 0 days, 0 refills - Voltaren 1% External Gel 0 days, 0 refills - Xyzal Allergy 24HR 5 MG Oral Tablet 0 days, 0 refills - Zyzal Oral Tablet 0 days, 0 refills Past Medical/Surgical History Reported: History of Fractures. Use of CPAP. Use of CPAP. Medical: Thyroid disease, joint problems arthritic, and a fracture. Intermittent hypertension. Medications: A recent injection. Immunization History: Recent immunization for flu and for pneumococcal pneumonia. Diagnoses: Asthma. Anemia. Anemia. History of Blood Transfusion. History of Blood Transfusion. Irregular Heartbeat Sleep Apnea. Sleep Apnea. Heartburn / Acid Reflux. Thyroid Disease. Hypertension. Hypertension. Osteoporosis. Arthritis. Arthritis High cholesterol, acid reflux, irregular heartbeat, blood transfusion, cataracs, anemia. Surgical: - Shoulder arthroplasty - Total knee arthroplasty Social History Not a current smoker. Not a current smoker. Current diet: No recent change in diet. No recent change in diet. Caffeine use: Caffeine use. Tobacco use: No tobacco use and not a current smoker. Tobacco non-user and non-smoker. Smoking status: Never smoker. Alcohol: Not using alcohol. Drug Use: Not using drugs. Habits: Exercising regularly. Allergies - Mobic - Naproxen - Penicillin G Benzathine Family History Cancer Stroke/seizure: maternal history Systemic hypertension Osteoporosis Paternal: Cancer Maternal: Systemic hypertension Osteoporosis Stroke/seizure Review Of Systems Systemic: Not feeling tired and no recent weight loss. Recent weight gain. Head: No headache and no sinus pain. Eyes: No vision problems. Cataracts. No Glasses/Contacts and no Glaucoma. Otolaryngeal: Hearing loss. No tinnitus. Cardiovascular: No chest pain or discomfort and no palpitations. Hypertension and High Cholesterol. Pulmonary: No daytime asthma symptoms and no chronic cough. No wheezing. Gastrointestinal: No heartburn and no abdominal pain. No Indigestion, no Peptic Ulcer, no GI Stomach Bleed, no Ulcers, and no Acid Reflux. Endocrine: No hot flashes. Muscle weakness. No Diabetes and no Hypothyroid. Hyperthyroid. Hematologic: No easy bleeding. A tendency for easy bruising. No Anemia. Musculoskeletal: Arthritis. No lower back pain. Soft tissue swelling and pain localized to one or more joints. Neurological: No dizziness, no convulsions, and no numbness. Psychological: No anxiety, no emotional lability, no depression, and no insomnia. Not crying for no reason. Skin: No dry skin. No Ulcers. Scars. No rash. Allergic and Immunologic: Complaint of seasonal allergic reaction. Physical Findings - Vitals taken 04/10/2024 11:06 am bfj Height 59 in Weight 200 lbs Body Mass Index 40.4 kg/m2 Body Surface Area 1.8 m2 Assessment - Overweight Previous Tests Imaging: X-Ray: X-ray. Counseling/Education - Tobacco non-user - Use of tobacco assessment performed - Lose weight Plan - Patient screened for future fall risk: documentation of any fall with injury in past year Care Team - VERONICA SCHUSTER MD - [employer]
--- OUTSIDE RECORDS SUMMARY | 2024-06-08 21:15 | XMS_ITS | Data Portability ---
Author Organization ANUEL - RADHA Regalado BLAIR CLOSED Address [address] [place] [address] Assessment No assessment recorded. Plan of Treatment Reminders Order Date Submit Date Provider Last Modified By Organization Details Last Modified Time Details Appointments RECHECK 2024 02:00P Edward PARR MD Not available Not available Not available Lab urinalysi s panel, auto 2023 024 [facility], [address], [place], [address], 11/24/2023 08:06:03 urinalysi s, dipstick, auto 2017 018 [facility], [address], [place], [address], 02/22/2018 19:59:53 urinalysi s, dipstick, auto 2017 018 [facility], [address], [address], [place], [address], 07/13/2017 06:37:24 Referral None recorded. Procedures None recorded. Surgeries cystoscop y (SURG) 2023 024 [email or web address] [facility], [address], [place], [address], 06/09/2023 16:22:49 Imaging US, retroperi toneum, limited - US KIDNEY BILAT WITHOUT BLADDERPL EASE CONTACT SOFIA BARLOW @ 2023 024 [facility] [address], [place], [address], 11/30/2023 15:11:50 CT, abdomen + pelvis, w/wo contrast 2023 024 [facility], [address], [place], [address], 05/12/2023 14:46:31 US, retroperi toneum, limited - Bilateral Kidney Ultra Sound 2017 019 [facility], [address], [place], [address], 06/04/2019 05:03:01 US, retroperi toneum, limited 2017 018 [facility], [address] [place], [address], 02/08/2018 16:10:42 Medication Orders None recorded. Patient TargetsNo targets recorded. Patient Instructions Encounter Date Encounter Id Patient Instructions Last Modified By Organization Details Last Modified Time 07/12/2017 [id number] I counseled the patient that she does not have any malignant appearing cysts. We will plan for follow-up in 6 months with renal ultrasound. We'll plan for renal mass protocol CT scan if there are significant changes on ultrasound follow-up. [email or web address] Not available 07/13/2017 06:37:45 02/14/2018 [id number] Renal cysts appear benign and stable [email or web address] Not available 02/22/2018 20:00:22 11/15/2023 [id number] learning about depression [email or web address] Not available 11/24/2023 08:05:59 Reason for Referral None Reported. Results Created Date Observation Date Name Description Value Unit Range Abnormal Flag Note LastModifiedBy Organization Detail LastModifiedTime 07/13/19 18 07/12/2017 urina lysis , dipst ick, auto Unknown Analyte Yellow Not Available [facility] [address], [place], [address], 07/12/2017 09:28:59 07/13/19 18 07/12/2017 urina lysis , dipst ick, auto Unknown Analyte Clear Not Available [facility] [address], [place], [address], 07/12/2017 09:28:59 07/13/19 18 07/12/2017 urina lysis , dipst ick, auto Unknown Analyte 1.015 Not Available [facility] [address], [place], [address], 07/12/2017 09:28:59 07/13/19 18 07/12/2017 urina lysis , dipst ick, auto Unknown Analyte 5.0 Not Available [facility] [address], [place], [address], 07/12/2017 09:28:59 07/13/19 18 07/12/2017 urina lysis , dipst ick, auto Unknown Analyte Negati ve Not Available [facility] [address], [place], [address], 07/12/2017 09:28:59 07/13/19 18 07/12/2017 urina lysis , dipst ick, auto Unknown Analyte Negati ve Not Available [facility] [address] [facility] [address], [place], [address], 07/12/2017 09:28:59 07/13/19 18 07/12/2017 urina lysis , dipst ick, auto Unknown Analyte Negtiv e Not Available [facility] [address], [place], [address], 07/12/2017 09:28:59 07/13/19 18 07/12/2017 urina lysis , dipst ick, auto Unknown Analyte Normal Not Available [facility] [address], [place], [address], 07/12/2017 09:28:59 07/13/19 18 07/12/2017 urina lysis , dipst ick, auto Unknown Analyte Negati ve Not Available [facility] [address], [place], [address], 07/12/2017 09:28:59 07/13/19 18 07/12/2017 urina lysis , dipst ick, auto Unknown Analyte Normal Not Available [facility] [address], [place], [address], 07/12/2017 09:28:59 07/13/19 18 07/12/2017 urina lysis , dipst ick, auto Unknown Analyte Negati ve Not Available [facility] [address], [place], [address], 07/12/2017 09:28:59 07/13/19 18 07/12/2017 urina lysis , dipst ick, auto Unknown Analyte Negati ve Not Available [facility] [address], [place], [address], 07/12/2017 09:28:59 07/13/19 18 07/12/2017 urina lysis , dipst ick, auto Unknown Analyte Clean Catch Not Available [facility] [address], [place], [address], 07/12/2017 09:28:59 07/13/19 18 07/12/2017 urina lysis , dipst ick, auto Unknown Analyte Automa avery Not Available [facility] [address], [place], [address], 07/12/2017 09:28:59 02/15/20 18 02/14/2018 urina lysis , dipst ick, auto Unknown Analyte Yellow Not Available [facility] [address], [place], [address], 02/14/2018 12:19:32 02/15/20 18 02/14/2018 urina lysis , dipst ick, auto Unknown Analyte Clear Not Available [facility] [address], [place], [address], 02/14/2018 12:19:32 02/15/20 18 02/14/2018 urina lysis , dipst ick, auto Unknown Analyte 1.010 Not Available [facility] [address], [place], [address], 02/14/2018 12:19:32 02/15/20 18 02/14/2018 urina lysis , dipst ick, auto Unknown Analyte 1.003 - 1.035 Not Available [facility] [address], [place], [address], 02/14/2018 12:19:32 02/15/20 18 02/14/2018 urina lysis , dipst ick, auto Unknown Analyte 8.[address] [facility] [address], [place], [address], 02/14/2018 12:19:32 02/15/20 18 02/14/2018 urina lysis , dipst ick, auto Unknown Analyte 5.0 - 8.0 Not Available [facility] [address], [place], [address], 02/14/2018 12:19:32 02/15/20 18 02/14/2018 urina lysis , dipst ick, auto Unknown Analyte Negati ve Not Available [facility] [address], [place], [address], 02/14/2018 12:19:32 02/15/20 18 02/14/2018 urina lysis , dipst ick, auto Unknown Analyte Negati ve Not Available [facility] [address], [place], [address], 02/14/2018 12:19:32 02/15/20 18 02/14/2018 urina lysis , dipst ick, auto Unknown Analyte Negati ve Not Available [facility] [address], [place], [address], 02/14/2018 12:19:32 02/15/20 18 02/14/2018 urina lysis , dipst ick, auto Unknown Analyte Negati ve Not Available [facility] [address], [place], [address], 02/14/2018 12:19:32 02/15/20 18 02/14/2018 urina lysis , dipst ick, auto Unknown Analyte Negtiv e Not Available [facility] [address], [place], [address], 02/14/2018 12:19:32 02/15/20 18 02/14/2018 urina lysis , dipst ick, auto Unknown Analyte Negati ve - Trace Not Available [facility] [address], [place], [address], 02/14/2018 12:19:32 02/15/20 18 02/14/2018 urina lysis , dipst ick, auto Unknown Analyte Normal Not Available [facility] [address], [place], [address], 02/14/2018 12:19:32 02/15/20 18 02/14/2018 urina lysis , dipst ick, auto Unknown Analyte Normal Not Available [facility] [address], [place], [address], 02/14/2018 12:19:32 02/15/20 18 02/14/2018 urina lysis , dipst ick, auto Unknown Analyte Negati ve Not Available [facility] [address], [place], [address], 02/14/2018 12:19:32 02/15/20 18 02/14/2018 urina lysis , dipst ick, auto Unknown Analyte Negati ve Not Available [facility] [address], [place], [address], 02/14/2018 12:19:32 02/15/20 18 02/14/2018 urina lysis , dipst ick, auto Unknown Analyte Normal Not Available [facility] [address], [place], [address], 02/14/2018 12:19:32 02/15/20 18 02/14/2018 urina lysis , dipst ick, auto Unknown Analyte Normal - 1mg/dl Not Available [facility] [address], [place], [address], 02/14/2018 12:19:32 02/15/20 18 02/14/2018 urina lysis , dipst ick, auto Unknown Analyte Negati ve Not Available [facility] [address], [place], [address], 02/14/2018 12:19:32 02/15/20 18 02/14/2018 urina lysis , dipst ick, auto Unknown Analyte Negati ve Not Available [facility] [address], [place], [address], 02/14/2018 12:19:32 02/15/20 18 02/14/2018 urina lysis , dipst ick, auto Unknown Analyte Negati ve Not Available [facility] [address], [place], [address], 02/14/2018 12:19:32 02/15/20 18 02/14/2018 urina lysis , dipst ick, auto Unknown Analyte Negati ve Not Available [facility] [address], [place], [address], 02/14/2018 12:19:32 02/15/20 18 02/14/2018 urina lysis , dipst ick, auto Unknown Analyte Clean Catch Not Available [facility] [address], [place], [address], 02/14/2018 12:19:32 02/15/20 18 02/14/2018 urina lysis , dipst ick, auto Unknown Analyte Automa avery Not Available [facility] [address], [place], [address], 02/14/2018 12:19:32 05/12/19 24 05/12/2023 urina lysis panel , auto Unknown Analyte Clean Catch Not Available [facility] [address] [place] [address], [address], 05/12/2023 15:17:03 05/12/19 24 05/12/2023 urina lysis panel , auto Unknown Analyte Yellow Not Available [facility] [address] [place] [address], [address], 05/12/2023 15:17:03 05/12/19 24 05/12/2023 urina lysis panel , auto Unknown Analyte Clear Not Available [facility] [address] [place] [address], [address], 05/12/2023 15:17:03 05/12/19 24 05/12/2023 urina lysis panel , auto Unknown Analyte 1.[address] [facility] [address] [place] [address], [address], 05/12/2023 15:17:03 05/12/19 24 05/12/2023 urina lysis panel , auto Unknown Analyte 1.003- 1.035 Not Available [facility] [address] [place] [address], [place], [address], 05/12/2023 15:17:03 05/12/19 24 05/12/2023 urina lysis panel , auto Unknown Analyte 7.[address] [facility] [address] [place] [address], [place], [address], 05/12/2023 15:17:03 05/12/19 24 05/12/2023 urina lysis panel , auto Unknown Analyte 5.0-8. 0 Not Available [facility] [address] [place] [address], [place], [address], 05/12/2023 15:17:03 05/12/19 24 05/12/2023 urina lysis panel , auto Unknown Analyte Negati ve Not Available [facility] [address] [place] [address], [place], [address], 05/12/2023 15:17:03 05/12/19 24 05/12/2023 urina lysis panel , auto Unknown Analyte Negati ve Not Available [facility] [address] [place] [address], [place], [address], 05/12/2023 15:17:03 05/12/19 24 05/12/2023 urina lysis panel , auto Unknown Analyte Negati ve Not Available [facility] [address] [place] [address], [address], 05/12/2023 15:17:03 05/12/19 24 05/12/2023 urina lysis panel , auto Unknown Analyte Negati ve Not Available [facility] [address] [place] [address], [address], 05/12/2023 15:17:03 05/12/19 24 05/12/2023 urina lysis panel , auto Unknown Analyte Negati ve Not Available [facility] [address] [place] [address], [place], [address], 05/12/2023 15:17:03 05/12/19 24 05/12/2023 urina lysis panel , auto Unknown Analyte Negati ve Not Available [facility] [address] [place] [address], [address], 05/12/2023 15:17:03 05/12/19 24 05/12/2023 urina lysis panel , auto Unknown Analyte Normal Not Available [facility] [address] [place] [address], [address], 05/12/2023 15:17:03 05/12/19 24 05/12/2023 urina lysis panel , auto Unknown Analyte Normal Not Available [facility] [address] [place] [address], [address], 05/12/2023 15:17:03 05/12/19 24 05/12/2023 urina lysis panel , auto Unknown Analyte Negati ve Not Available [facility] [address] [place] [address], [address], 05/12/2023 15:17:03 05/12/19 24 05/12/2023 urina lysis panel , auto Unknown Analyte Negati ve Not Available [facility] [address] [place] [address], [address], 05/12/2023 15:17:03 05/12/19 24 05/12/2023 urina lysis panel , auto Unknown Analyte Normal Not Available [facility] [address] [place] [address], [address], 05/12/2023 15:17:03 05/12/19 24 05/12/2023 urina lysis panel , auto Unknown Analyte Normal 1 mg/dl Not Available [facility] [address] [facility] [address], [place], [address], 05/12/2023 15:17:03 05/12/19 24 05/12/2023 urina lysis panel , auto Unknown Analyte Negati ve Not Available [facility] [address] [address], [place], [address], 05/12/2023 15:17:03 05/12/19 24 05/12/2023 urina lysis panel , auto Unknown Analyte Negati ve Not Available [facility] [address] [address], [place], [address], 05/12/2023 15:17:03 05/12/19 24 05/12/2023 urina lysis panel , auto Unknown Analyte Negati ve Not Available [facility] [address] [place] [address], [place], [address], 05/12/2023 15:17:03 05/12/19 24 05/12/2023 urina lysis panel , auto Unknown Analyte Negati ve Not Available [facility] [address] [place] [address], [place], [address], 05/12/2023 15:17:03 11/15/19 24 11/15/2023 urina lysis panel , auto Unknown Analyte Clean Catch Not Available [facility] [address], [place], [address], 11/15/2023 11:49:15 11/15/19 24 11/15/2023 urina lysis panel , auto Unknown Analyte Yellow Not Available [facility] [address], [place], [address], 11/15/2023 11:49:15 11/15/19 24 11/15/2023 urina lysis panel , auto Unknown Analyte Clear Not Available [facility] [address], [place], [address], 11/15/2023 11:49:15 11/15/19 24 11/15/2023 urina lysis panel , auto Unknown Analyte 1.005 Not Available [facility] [address], [place], [address], 11/15/2023 11:49:15 11/15/19 24 11/15/2023 urina lysis panel , auto Unknown Analyte 1.003- 1.035 Not Available [facility] [address], [place], [address], 11/15/2023 11:49:15 11/15/19 24 11/15/2023 urina lysis panel , auto Unknown Analyte 5.0 Not Available [facility] [address], [place], [address], 11/15/2023 11:49:15 11/15/19 24 11/15/2023 urina lysis panel , auto Unknown Analyte 5.0-8. 0 Not Available [facility] [address], [place], [address], 11/15/2023 11:49:15 11/15/19 24 11/15/2023 urina lysis panel , auto Unknown Analyte 25 Carlos/ul Trace Not Available [facility] [address], [place], [address], 11/15/2023 11:49:15 11/15/19 24 11/15/2023 urina lysis panel , auto Unknown Analyte Negati ve Not Available [facility] [address], [place], [address], 11/15/2023 11:49:15 11/15/19 24 11/15/2023 urina lysis panel , auto Unknown Analyte Negati ve Not Available [facility] [address], [place], [address], 11/15/2023 11:49:15 11/15/1911/15/2023 urina lysis panel , auto Unknown Analyte Negati ve Not Available [facility] [address], [place], [address], 11/15/2023 11:49:15 11/15/19 24 11/15/2023 urina lysis panel , auto Unknown Analyte Negati ve Not Available [facility] [address], [place], [address], 11/15/2023 11:49:15 11/15/19 24 11/15/2023 urina lysis panel , auto Unknown Analyte Negati ve Not Available [facility] [address], [place], [address], 11/15/2023 11:49:15 11/15/19 24 11/15/2023 urina lysis panel , auto Unknown Analyte Normal Not Available [facility] [address], [place], [address], 11/15/2023 11:49:15 11/15/19 24 11/15/2023 urina lysis panel , auto Unknown Analyte Normal Not Available [facility] [address], [place], [address], 11/15/2023 11:49:15 11/15/19 24 11/15/2023 urina lysis panel , auto Unknown Analyte Negati ve Not Available [facility] [address], [place], [address], 11/15/2023 11:49:15 11/15/19 24 11/15/2023 urina lysis panel , auto Unknown Analyte Negati ve Not Available [facility] [address], [place], [address], 11/15/2023 11:49:15 11/15/19 24 11/15/2023 urina lysis panel , auto Unknown Analyte Normal Not Available [facility] [address], [place], [address], 11/15/2023 11:49:15 11/15/19 24 11/15/2023 urina lysis panel , auto Unknown Analyte Normal 1 mg/dl Not Available [facility] [address], [place], [address], 11/15/2023 11:49:15 11/15/19 24 11/15/2023 urina lysis panel , auto Unknown Analyte Negati ve Not Available [facility] [address], [place], [address], 11/15/2023 11:49:15 11/15/19 24 11/15/2023 urina lysis panel , auto Unknown Analyte Negati ve Not Available [facility] [address], [place], [address], 11/15/2023 11:49:15 11/15/19 24 11/15/2023 urina lysis panel , auto Unknown Analyte Negati ve Not Available [facility] [address] [facility] [address], [place], [address], 11/15/2023 11:49:15 11/15/19 24 11/15/2023 urina lysis panel , auto Unknown Analyte Negati ve Not Available [facility] [address], [place], [address], 11/15/2023 11:49:15 07/01/19 18 06/29/2017 US, retro perit oneum , limit ed No observ ation record ed. [facility] [address], [place], [address], 07/13/2017 06:38:55 07/09/19 18 07/07/2017 CT, abdom en, w/wo contr ast No observ ation record ed. [facility] [facility] [address] [facility] [address], [place], [address], 07/13/2017 06:38:54 02/09/20 18 02/08/2018 US, retro perit oneum , limit ed [place] [facility] [address] [facility] [place] [address] Patien t Name: SOFIA toney : [address] Con[address] toney 4 Orderi ng Provid er: SHIRLEY MERA JR EXAM DATE: 2017 EXAM: US KIDNEY BILAT WO BLADDE R CLINIC AL INFORM ATION: Follow -up renal cyst. TECHNI QUE: Multip le sonogr aphic images of both kidney s were obtain ed. COMPAR VICENTE: 016 FINDIN GS: RIGHT KIDNEY : Length = 9.9 cm. No hydron ephros is, mass or stone. Simple cysts are seen in the right kidney . The larger cyst measur es 3.6 x 3.9 x 2.9 cm. The smalle r cyst measur es 1.6 x 1.4 x 1.6 cm. LEFT KIDNEY : Length = 10.2 cm. No hydron ephros is, mass or stone. IMPRES AKI: Stable simple cysts right kidney . Interp reted By: Johnnie Hawkins MD Electr onical ly Signed By: Johnnie Hawkins MD on 2017 4:05 PM [facility] [address] [place], [address], 02/22/2018 19:58:21 04/07/19 24 02/09/2023 US, renal No observ ation record ed. [facility] Not Available 2023 13:32:35 05/12/19 24 05/12/2023 CT, abdom en + pelvi s, w/wo contr ast [address] [address] Patikamran toney Name: SOFIA toney : [address] t[address] 4 Orderi ng Provid er: SHIRLEY MARTINEZ [facility] EXAM DATE: 2023 EXAM: CT ABD/PE LVIS W/WO CONTRA ST CLINIC AL INFORM ATION: Episod es of hematu dom 2 months ago. TECHNI QUE: A baseli ne serum creati nine with eGFR was obtain ed prior to inject ion of contra st medium due to the patien ts risk factor s for MARU. Calcul ated eGFR at time of exam was GFR [address] images of the abdome n were obtain ed before and in the combin ed nephro graphi c and excret ory phases after a split inject ion of 100 mL Omnipa que 350 (1 x 100 mL bottle of [facility] [address] 1414-9 1). 0 was wasted and discar ded. Bowel was marked with water. COMPAR VICENTE: No previo us images are availa ble for compar vicente. FINDIN GS ON CT ABDOME N: LOWER THORAX : Lungs are clear. Heart shows rosa ry artery and aortic valve calcif icatio ns with normal ascend ing aortic calibe r. UPPER ABDOMI NAL ORGANS : Liver, Gallbl adder, Spleen , Pancre as, Adrena ls are normal . 1-4.7 cm simple cysts are seen in both kidney s. BOWEL AND MESENT ANITHA: Eviden ce of previo us lap band surger y of the stomac h is noted. Small bowel and colon are normal . No mesent chelsey lympha denopa thy or perito suhas free fluid. RETROP ERITON EUM: Abdomi nal aorta shows athero sclero tic calcif icatio ns with normal calibe r. 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 No retrop eriton eal lympha denopa thy. ABDOMI NAL WALL AND SKELET AL STRUCT URES: Degene rative change s are seen in the lumbar spine. 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 Fascia l defect measur es 1 cm. The hernia l sac measur es 6.[address] PELVIS : PELVIC CAVITY : Urinar y bladde r and rectos igmoid are normal . Uterus is atroph ic. Ovarie s are not visual ized. No pelvic or inguin al lympha denopa thy, mass or fluid. MUSCUL OSKELE ROC STRUCT URES: Pelvic muscul oskele roc struct ures are normal . COMBIN ED IMPRES AKI: 1. No CT eviden ce of urinar y tract stone or upper urinar y tract neopla sm. 2. Simple renal cysts. 3. Modera te-siz ed umbili zenia hernia . Interp reted By: Johnnie Hawkins MD Electr onical ly Signed By: Johnnie Hawkins MD on 024 2:41 PM [email or web address] [facility] Radiology [facility] [address] [facility], [place], [address], 05/14/2023 16:38:38 11/30/19 24 11/30/2023 US, retro perit oneum , limit ed No observ ation record ed. [email or web address] [facility] ([facility] Record) [address], [place], [address], 12/01/2023 09:40:10 06/08/19 25 06/06/2024 US, retro perit oneum , limit ed No observ ation record ed. [email or web address] Not Available 05/30 18:13:29 Result Notes None recorded. 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 Procedures Surgical History Date Name Laterality Status Provider Name and Address Organization Details Recorded Time Cystoscopy - female completed SHIRLEY PARR JR, MD [address] [place] [address], [address], [facility] 05/12/2023 13:33:18 [facility] 03/31/2023 10:33:39 maintenance of gastric band completed otis [facility] 03/31/2023 10:34:53 operative procedure on knee completed otis [facility] 03/31/2023 10:37:07 Imaging Results Imaging Date Name Status LastModified by Organiz ation Details LastModified Time 06/29/2017 US, retroperitone um, limited completed [facility] [address] [facility] [address], [place], [address], 07/13/2017 06:38:55 07/07/2017 CT, abdomen, w/wo contrast completed [facility] [address], [place], [address], 07/13/2017 06:38:54 02/08/2018 US, retroperitone um, limited completed [facility] [address] [place], [address], 02/22/2018 19:58:21 02/09/2023 US, renal completed [facility] Information no t available 05/12/2023 13:32:35 05/12/2023 CT, abdomen + pelvis, w/wo contrast completed [email or web address] [address] [place], [address], 05/14/2023 16:38:38 11/30/2023 US, retroperitone um, limited completed [email or web address] [facility] (Med Record) [address], [place], [address], 12/01/2023 09:40:10 06/06/2024 US, retroperitone um, limited completed [email or web address] Information not available 06/08/2024 18:13:29 Procedure Notes None recorded. Medical Equipment None Reported. Allergies Allergen ID Allergen Name Allergen Category Reaction Reaction Severity Criticality Documentation Date Start Date Code Code System Note Provider Name and Address Organization Details Recorded Time 18680930 Product containin g penicilli n (product) medicatio n Not available Not available Not available 01/23/20162012 40482 8001 SNOMED Comme nt: Creat ed By: Elmer varela Date: 2012 10:39 :32 AM; Not Available [facility] 6 11:56:53 254994 etodolac medicatio n Not available Not available Not available 01/23/20162012 49346 RxNorm Comme nt: Creat ed By: Dayna Escudero ;Meira avery Date: 2012 10:40 :22 AM; Not Available [facility] 6 11:56:53 978305 Bextra medicatio n Not available Not available Not available 01/23/20162012 24748 0 RxNorm Comme nt: Creat ed By: Dayna Escudero ;Crea avery Date: 2012 10:40 :41 AM; Not Available [facility] 6 11:56:53 412877 Aleve medicatio n Not available Not available Not available 01/23/20162012 69977 1 RxNorm Comme nt: Creat ed By: Dayna Escudero ;Meira avery Date: 2012 10:40 :02 AM; Not Available [facility] 6 11:56:53 [id number] Substance with sulfonami de structure and antibacte rial mechanism of action (substanc e) medicatio n Not available Not available Not available 01/23/20162012 25585 8003 SNOMED Comme nt: Creat ed By: Elmer Cardenas avery Date: 2012 10:41 :00 AM; Not Available [facility] 6 11:56:53 Medications Name Sig Start Date Stop Date Status Note LastModified by Organization Details LastModified Time Miralax 17 gram oral powder packet active Medication Descriptio n: polyethyle ne glycol 3350; refills:0 Not Available Not Available Not Available Arthrotec 75 75 mg-200 mcg tablet,film -coated Two times a day active Duration: 30 days;Frequ ency: bid;Medica tion Descriptio n: diclofenac -misoprost ol; Dosage:1; Route:oral ; refills:0; Quantity:9 0 tablet Not Available Not Available Not Available Multiple Vitamin capsule Daily active Duration: 30 days;Frequ ency: daily;Medi cation Descriptio n: multivitam in; Dosage:1; Route:oral ; refills:3; Quantity:1 00 capsule Not Available Not Available Not Available indapamide 2.5 mg tablet Daily active Frequency: daily;Medi cation Descriptio n: indapamide ; Dosage:1; Route:oral ; refills:0; Quantity:3 0 tablet Not Available Not Available Not Available Lasix 40 mg tablet Take 1 tablet every day by oral route. active Not Available Not Available No t Available Synthroid 100 mcg tablet Daily active Frequency: daily;Medi cation Descriptio n: levothyrox ine; Dosage:1; Route:oral ; refills:0; Quantity:3 0 tablet Not Available Not Available Not Available simvastatin 10 mg tablet active Medication Descriptio n: simvastati n; refills:0 Not Available Not Available Not Available Klor-Con 20 mEq oral packet Daily active Duration: 30 days;Frequ ency: daily;Medi cation Descriptio n: potassium chloride; Dosage:1; Route:oral ; refills:0; Quantity:6 0 powder for reconstitu tion Not Available Not Available Not Available tramadol 50 mg tablet Two times a day active Frequency: bid;Medica tion Descriptio n: tramadol; Dosage:1; Route:oral ; refills:0 Not Available Not Available Not Available aspirin 81 mg tablet Daily active Duration: 30 days;Frequ ency: daily;Medi cation Descriptio n: aspirin; Dosage:1; Route:oral ; refills:0; Quantity:3 0 tablet Not Available Not Available Not Available Nasonex 50 mcg/actuati on [place] Daily active Instructio ns: each nostril;Fr equency: daily;Medi cation Descriptio n: mometasone nasal; Dosage:2; Route:nasa l; refills:5; Quantity:1 spray Not Available Not Available Not Available Fiber-Tabs 625 mg tablet active Medication Descriptio n: polycarbop hil; refills:0 Not Available Not Available Not Available Ventolin HFA 90 mcg/actuati on aerosol inhaler active Medication Descriptio n: albuterol; Route:inha lation; refills:0 Not Available Not Available Not Available Cymbalta 60 mg capsule,del ayed release Daily active Frequency: daily;Medi cation Descriptio n: duloxetine ; Dosage:1; Route:oral ; refills:0 Not Available Not Available Not Available magnesium active Not Available Not Libby ilable Not Available potassium acetate active Not Available Not Available Not Available Calcium-Vit mccoy D Daily active Frequency: daily;Medi cation Descriptio n: calcium-vi tamin D; Dosage:2; Route:oral ; refills:0 Not Available Not Available Not Available Morphine Sulfate CR active Medication Descriptio n: morphine; refills:0 Not Available Not Available Not Available hydroxyzine HCl active Medication Descriptio n: hydroxyzin e; refills:0 Not Available Not Available Not Available ferrous sulfate active Medication Descriptio n: ferrous sulfate; refills:0 Not Available Not Available Not Available Colace active Medication Descriptio n: docusate; refills:0 Not Available Not Available Not Available furosemide active Medicatio n Descriptio n: furosemide ; refills:0 Not Available Not Available Not Available Vitamin D Daily active Frequency: daily;Medi cation Descriptio n: ergocalcif mahendra; Dosage:2; Route:oral ; refills:0 Not Available Not Available Not Available Keflex active Not Available Not Availa ble Not Available Lovaza 1 gram capsule Daily active Frequency: daily;[facility] cation Descriptio n: omega-3 polyunsatu rated fatty acids; Dosage:4; Route:oral ; refills:0 Not Available Not Available Not Available levocetiriz ine 5 mg tablet Daily active Frequency: daily;[facility] cation Descriptio n: levocetiri zine; Dosage:1; Route:oral ; refills:0 Not Available Not Available Not Available Colcrys 0.6 mg tablet Daily active Frequency: daily;[facility] cation Descriptio n: colchicine ; Dosage:1; Route:oral ; refills:0 Not Available Not Available Not Available Vitals Date Recorded Body height Body mass index (BMI) Body weight Heart rate Systolic blood pressure Diastolic blood pressure Provider Name and Address Organization Details Last Updated DateTime 8 149.86 cm 40.6 kg/m2 13380.0 7 g 80 /min 136 mm[Hg] 83 mm[Hg] Nasima Kady [facility] 8 09:03:19 Date Recorded Body height Body mass index (BMI) Body weight Heart rate Systolic blood pressure Diastolic blood pressure Provider Name and Address Organization Details Last Updated DateTime 8 149.86 cm 42.4 kg/m2 21189.4 g 92 /min 124 mm[Hg] 75 mm[Hg] Tika Toney [facility] 12/17/201 8 12:18:54 Date Recorded Body height Body mass index (BMI) Body weight Provider Name and Address Organization Details Last Updated DateTime 03/31/2023 149.86 cm 40.4 kg/m2 27183.47 g [facility] 03/31/2023 10:29:44 Date Recorded Body height Body mass index (BMI) Body weight Provider Name and Address Organization Details Last Updated DateTime 11/15/2023 149.86 cm 40.4 kg/m2 73844.47 g [facility] 11/15/2023 11:37:28 Social History Question Answer Notes LastModified by Organizat ion Details LastModified Time Tobacco Smoking Status Never Smoker Tika Toney [facility] 06/24/2017 11:30:13 What Is Your Level Of Alcohol Consumption? None Information not available 06/24/2017 Marital Status [email or web address] Informatio n not available 06/24/2017 What Was The Date Of Your Most Recent Tobacco Screening? 11/15/2023 [email or web address] Information not available 11/15/2023 Sex: Unknown Functional Status None recorded. Mental Status None recorded. Family History Relationship Description Onset Age of this Age Resolved Age Notes LastModified by Organization Details LastModified Time Father Family history of malignant neoplasm [email or web address] Not available 06/24 11:30:09 Medical History Condition Response Allergies/Hayfever Y Anemia Y Arthritis Y Sleep Apnea Y Thyroid Disorder Y High Cholesterol Y Acid Reflux (GERD) Y Hypertension Y Asthma Y Gynecological HistoryNo gynecological history recorded. 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 [id number] MD ADALID MARLEY JR, [facility] [address] [place] [address] 02/14/2018 11:08:51 02/14/2018 12:25:49 Acquired renal cystic disease 066890251 N28.1 [id number] ADALID [address] [place] [address] 03/31/2023 09:48:35 04/01/2023 05:23:51 Earnest hematuria 586168959 R31.0 Acquired r enal cystic disease 817998599 N28.1 [id number] SHIRLEY PARR JR, MD SURGERY SCHEDULE [address] [place] [address] 05/12/2023 12:06:17 05/12/2023 12:07:10 Earnest hematuria 720363641 R31.0 Acquired r enal cystic disease 929905366 N28.1 [id number] MD ADALID MARLEY JR, [facility] [address] [place] [address] 11/15/2023 11:10:42 11/15/2023 12:19:04 Acquired renal cystic disease 234686681 N28.1 Health Concerns Section Related Observation LastModified by Organization Detai ls LastModified Time None Recorded Concern Status LastModified by Organization Details LastModified Time None Recorded Advance Directives Directive None Recorded Payers Encounter Date Sequence Insurance Name Policy Number Policy Lucero Covered Member ID Lucero Member ID Guarantor Name 07/12/2017 1 [facility] (MEDICARE REPLACEMENT/A DVANTAGE - PPO) [id number] Barlow [id number] Sofia Barlow 02/14/2018 1 [facility] (MEDICARE REPLACEMENT/A DVANTAGE - PPO) [id number] Barlow [id number] Sofia Barlow 03/31/2023 1 [facility] (MEDICARE REPLACEMENT/A DVANTAGE - PPO) [id number] Barlow [id number] Sofia Barlow 05/12/2023 1 [facility] (MEDICARE REPLACEMENT/A DVANTAGE - PPO) [id number] Sofia Barlow [id number] Sofia Barlow 11/15/2023 1 [facility] (MEDICARE REPLACEMENT/A DVANTAGE - PPO) [id number] Sofia Barlow [id number] Sofia Barlow Notes Date Note Type Note Provider Name and Address Organization Details Recorded Time 07/12/2017 text/html patient is in to day for follow-up of renal cysts/renal mass. She brings a copy of her CT scan and for review. 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 renal mass protocol CT scan was performed July 07, 2017. Other findings of CT scan are noted and results of the CT scan are provided for the patient for her to discuss with her primary care physician. SHIRLEY PARR JR, MD [address] [place] [address], [phone], [facility] 07/13/2017 06:39:02 02/14/2018 text/html patient is in to day for follow-up of renal cysts/renal mass. She brings a copy of her CT scan and for review. 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 renal mass protocol CT scan was performed July 07, 2017. Renal US 02/08/2018 shows stable simple cysts, right kidney. SHIRLEY PARR JR, MD [address] [place] [address], [address], [facility] 02/22/2018 20:01:55 03/31/2023 text/html patient is in to day for follow-up of renal cysts/renal mass. She brings a copy of her CT scan and for review. 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 renal mass protocol CT scan was performed July 07, 2017. Renal ultrasound February 09, 2023 shows complex appearing cyst 3.9 x 3.2 cm in the inferior pole of the right kidney Patient reports 2 episodes of gross hematuria. She also has had some right-sided flank pain. She does not have a history of smoking. She denies occupational exposures. SHIRLEY PARR JR, MD [address] [place] [address], [phone], [facility] 03/31/2023 18:16:51 05/12/2023 text/html patient is in to day for follow-up of renal cysts/renal mass. She brings a copy of her CT scan and for review. 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 renal mass protocol CT scan was performed July 07, 2017. Renal ultrasound February 09, 2023 shows complex appearing cyst 3.9 x 3.2 cm in the inferior pole of the right kidney Patient reports 2 episodes of gross hematuria. She also has had some right-sided flank pain. She does not have a history of smoking. She denies occupational exposures. SHIRLEY PARR JR, MD [address] [place] [address], [address], [facility] 05/12/2023 13:37:46 11/15/2023 text/html patient is in to day for follow-up of renal cysts/renal mass. She brings a copy of her CT scan and for review. 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 renal mass protocol CT scan was performed July 07, 2017. Renal ultrasound February 09, 2023 shows complex appearing cyst 3.9 x 3.2 cm in the inferior pole of the right kidney Patient underwent workup for gross hematuria April 2023. Cystoscopy was benign. CT scan imaging showed simple renal cysts. SHIRLEY PARR JR, MD [address] [place] [address], [address], [facility] 11/24/2023 08:06:03 OBGyn Episode No OBEpisode recorded.
--- OUTSIDE RECORDS SUMMARY | 2024-06-08 21:15 | XMS_ITS | Clinical Summary ---
Author Organization [facility] , [facility] Address [address] [place] [address] Phone Care Team Providers Care Line Prep Cook Name Role Phone LANDEN CORADO, VERONICA Unavailable [phone] Riaz Saenz MD Unavailable [phone] Flavia Gomez APRN Primary Care Provid er Unavailable Reason for Visit and Chief Complaint The Chief Complaint is: right knee pain AND LEFT HIP PAIN Problems Includes: Problems addressed during this encounter and other active Problems Current Visit Onset Date Resolved Date Provider Conditio n Status Joint Pain in the Left Hip 11/26/2022 Riaz Saenz MD Active Last Documented On 3 12:19PM ; [facility], [facility] Past Visits Onset Date Resolved Date Provider Condition Status Joint Pain, Localized in the Left Shoulder 04/10/2024 Yusef Doshi PA-C Active Last Documented On 5 10:53AM ; [facility] History of Joint Pain in the Left Knee 11/14/2020 Riaz Saenz MD Ac tive Last Documented On 1 1:02PM ; [facility], [facility] Joint Pain, Localized in the Shoulder 06/29/2018 Steven Saavedra MD Active Last Documented On 9 1:58PM ; [facility], [facility] Joint Pain in the Left Knee 07/23/2016 Patrice Saenz MD Active Last Documented On 7 1:23PM ; [facility] Plan of Treatment Fall Risk Assessment: This patient has been identified as a fall risk. Balance/gait along with postural blood pressure, vision and home fall hazards have been assessed. Medications have been reviewed, and recommendations made with regard to contributing factors for future falls. Plan of care: Consideration of vitamin D supplementation along with balance and strength training with consideration for formal physical therapy has been discussed with the patient. - Last Documented On 04/13/2023 2:50PM ; [facility], [facility] NON-SURGICAL PLAN: WEIGHT LOSS TESTS ORDERED: - Last Documented On 04/13/2023 2:50PM ; [facility], [facility] BILATERAL LE GENICULAR NERVE BLOCK FOLLOW UP: 2 YEARS WITH BILATERAL KNEE XOA - Last Documented On 04/13/2023 2:50PM ; [facility], [facility] Pending Tests Order Diagnosis Results Due Ordering P rovider Lab Orders CRP 07/23/16 Riaz Saenz MD Last Documented On 7 10:35AM ; [facility] Lab Orders ESR 07/23/16 Riaz Saenz MD Last Documented On 7 10:35AM ; [facility] Lab Orders - CC Aspirations Aerobic/Anaerobic Culture 11/09/16 Michael Saenz MD Last Documented On 7 9:01AM ; [facility] Lab Orders - CC Aspirations Cell Count with DIFF 11/09/16 Riaz Saenz MD Last Documented On 7 9:01AM ; [facility], [facility] Future Appointments Date Time Location Provi ofelia Follow Up 07/10/2024 11:00AM [facility] paedics Building B Yusef Doshi PA-C Last Documented On 5 11:44AM ; [facility] Follow Up 11/30/2024 11:30AM [facility] PS C Riaz Saenz MD Last Documented On 5 2:30PM ; [facility], [facility] Instructions to patient Lose weight Last Documented On 3 11:41AM ; [facility], [facility] Assessments Includes: Assessments from this encounter Findings - Overweight - Last Documented On 04/13/2023 2:50PM ; [facility], [facility] 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 NOW WHEELCHAIR BOUND BUT LIVES ALONE. COMFORTABLE WHEN SEATED BUT WHEN STAND UP PAIN IS 10/10. NO LOOSENING ON XRAYS. 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 CONTINUES ON SUPPRESSIVE ABX. - Last Documented On 04/13/2023 2:50PM ; [facility], [facility] Instructions Includes: Instructions from this encounter Instructions to patient Lose weight Last Documented On 3 11:41AM ; [facility], [facility] Medical Equipment - Implanted Devices Includes: Current Devices No Medical Equipment Recorded Medications Includes: Medications discussed during this encounter and other current Medications Current Medications (continue as prescribed) Cephalexin 125 MG/5ML Oral Suspension Reconstituted Provider: Diagnosis: Last Documented On 5 10:55AM By Raina Wilde [facility], [facility] Zyzal Oral Tablet 04/10/2024 Provider: Diagnosis: Last Documented On 5 10:54AM By Raina Wilde [facility], [facility] Turmeric Curcumin 500 MG Oral Capsule 04/10/2024 Provider: Diagnosis: Last Documented On 5 10:56AM By Raina Wilde [facility], [facility] Potassium Oral Tablet 04/10/2024 Provider: Diagnosis: Last Documented On 5 10:56AM By Raina Wilde [facility], [facility] Crestor 10 MG Oral Tablet 04/10/2024 Provider: Diagnosis: Last Documented On 5 10:55AM By Raina Wilde [facility], [facility] Cymbalta 20 MG Oral Capsule Delayed Release Particles 04/10/2024 Provider: Diagnosis: Last Documented On 5 10:55AM By Raina Wilde [facility], [facility] HYDROcodone-Acetaminophen 7. 5-325 MG Oral Tablet 04/07/2024 Provider: Sonido Seo MD Diagnosis: Last Documented On 5 10:54AM By Raina Wilde [facility], [facility] Lisinopril 5 MG Oral Tablet 04/06/2024 Provider: VERONICA SCHUSTER MD Diagnosis: Last Documented On 5 10:54AM By Raina Wilde [facility], [facility] Doxycycline Monohydrate 100 MG Oral Capsule 03/28/2024 Provider: Diagnosis: Last Documented On 5 10:54AM By Raina Gonzales ; [facility] Potassium Chloride Fiona ER 2 0 MEQ Oral Tablet Extended Release 03/27/2024 Provider: Flavia Gomez APRN Diagnosis: Last Documented On 5 10:54AM By Raina Gonzales ; [facility] Diclofenac Sodium 75 MG Oral Tablet Delayed Release 03/12/2024 Provider: VERONICA SCHUSTER MD Diagnosis: Last Documented On 5 10:54AM By Raina Gonzales ; [facility] Furosemide 40 MG Oral Tablet 03/12/2024 Provider: VERONICA SCHUSTER MD Diagnosis: Last Documented On 5 10:54AM By Raina Gonzales ; [facility] Levocetirizine Dihydrochlori de 5 MG Oral Tablet 03/12/2024 Provider: VERONICA SCHUSTER MD Diagnosis: Last Documented On 5 10:54AM By Raina Gonzales ; [facility] Synthroid 100 MCG Oral Tablet 03/12/2024 Provider: VERONICA SCHUSTER MD Diagnosis: Last Documented On 5 10:54AM By Raina Gonzales ; [facility], [facility] Rosuvastatin Calcium 10 MG Oral Tablet 03/12/2024 Pr ovider: VERONICA SCHUSTER MD Diagnosis: Last Documented On 5 10:54AM By Raina Gonzales ; [facility], [facility] DULoxetine HCl 60 MG Oral Ca psule Delayed Release Particles 03/12/2024 Provider: VERONICA SCHUSTER MD Diagnosis: Last Documented On 5 10:54AM By Raina Gonzales ; [facility] HYDROcodone-Acetaminophen 7. 5-325 MG Oral Tablet 03/03/2024 Provider: Sonido Seo MD Diagnosis: Last Documented On 5 10:54AM By Raina Gonzales ; [facility] Caltrate 600 1500 (600 Ca) MG Oral Tablet 11/27/2022 Provider: Diagnosis: Last Documented On 3 11:00AM By Sam Saenz ; [facility] B Complex-B12 Oral Tablet 11/27/2022 Provider: Diagnosis: Last Documented On 3 10:59AM By Sam Saenz ; [facility] HYDROcodone-Acetaminophen 7. 5-325 MG Oral Tablet 11/18/2022 Provider: Sonido Seo MD Diagnosis: Last Documented On 3 10:57AM By Sam Saenz ; [facility], [facility] Daily Multivitamin Oral Capsule 11/20/2021 Provider: Diagnosis: Last Documented On 2 11:05AM By Catrachita Hickman ; [facility], [facility] MiraLax 17 GM Oral Packet 11/20/2021 Provider: Diagnosis: Last Documented On 2 11:04AM By Catrachita Hickman ; [facility], [facility] Voltaren 1% External Gel 11/20/2021 Provider: Diagnosis: Last Documented On 11:04AM By Catrachita Hickman ; [facility], [facility] QC Tumeric Complex 500 MG Oral Capsule 11/20/2021 Pr ovider: Diagnosis: Last Documented On 11:03AM By Catrachita Hickman ; [facility], [facility] Cymbalta 20 MG Oral Capsule Delayed Release Particles 11/20/2021 Provider: Diagnosis: Last Documented On 11:02AM By Catrachita Hickman ; [facility], [facility] Crestor 10 MG Oral Tablet 11/20/2021 Provider: Diagnosis: Last Documented On 11:02AM By Catrachita Hickman ; [facility], [facility] Adult Aspirin Regimen 81 MG Oral Tablet Delayed Releas e 11/20/2021 Provider: Diagnosis: Last Documented On 2 11:02AM By Catrachita Hickman ; [facility], [facility] Magnesium 250 MG Oral Tablet 11/20/2021 Provider : Diagnosis: Last Documented On 11:03AM By Catrcahita Hickman ; [facility], [facility] Vitamin D3 1.25 MG (75698 UT) Oral Capsule 11/20/2021 Provider: Diagnosis: Last Documented On 11:03AM By Catrachita Hickman ; [facility], [facility] CoQ-10 100 MG Oral Capsule 11/20/2021 Provider: Diagnosis: Last Documented On 11:03AM By Catrachita Hickman ; [facility], [facility] Xyzal Allergy 24HR 5 MG Oral Tablet 11/20/2021 Provi ofelia: Diagnosis: Last Documented On 09/22/202 2 11:01AM By Catrachita Hickman ; [facility] Synthroid 100 MCG Oral Tablet 11/20/2021 Provider: Diagnosis: Last Documented On 2 11:01AM By Catrachita Hickman ; [facility] Doxycycline Hyclate 100 MG Oral Capsule 11/17/2021 Briana jarader: Diagnosis: Last Documented On 2 11:02AM By Catrachita Hickman ; [facility] Diclofenac Sodium 75 MG Oral Tablet Delayed Release 10/17/2021 Provider: VERONICA SCHUSTER MD Diagnosis: Last Documented On 2 11:02AM By Catrachita Hickman ; [facility] Cephalexin 500 MG Oral Capsule 10/14/2021 Provider: Diagnosis: Last Documented On 2 11:02AM By Catrachita Hickman ; [facility] Potassium Chloride Fiona ER 2 0 MEQ Oral Tablet Extended Release 09/24/2021 Provider: VERONICA SCHUSTER MD Diagnosis: Last Documented On 2 11:02AM By Catrachita Hickman ; [facility] Furosemide 40 MG Oral Tablet 07/14/2021 Provider: Kaycee Robin MD Diagnosis: Last Documented On 2 11:02AM By Catrachita Hickman ; [facility] Lisinopril 5 MG Oral Tablet 06/20/2021 Provider: Kaycee Robin MD Diagnosis: Last Documented On 2 11:00AM By Catrachita Hickman ; [facility], [facility] Past Medications on file traMADol HCl 50 MG Oral Tablet 11/20/2021 - 12/05/2021 Provider: Riaz valentine MD Diagnosis: 1 po q 6 to 8 hrs prn pain Last Documented On 2 11:46AM By Sam Saenz ; [facility] Neurontin 300 MG Oral Capsule 08/27/2020 - 11/25/2020 Provider: Riaz valentine MD Diagnosis: 1 every bedtime Last Documented On 1 1:34PM By Sam Saenz ; [facility] Ultram 50 MG Oral Tablet 08/27/2020 - 09/01/2020 Provider: Riaz valentine MD Diagnosis: 1-2 po q6h prn pain Last Documented On 1 1:34PM By Sam Saenz ; [facility] oxyCODONE HCl 10 MG Oral Tablet 08/27/2020 - 09/06/2020 Provider: Riaz valentine MD Diagnosis: 1-2 po q 4-6h Last Documented On 1 1:34PM By Sam Saenz ; [facility] Acetaminophen 500 MG Oral Tablet 08/22/2020 - 09/21/2020 Provider: Riaz Saenz MD Diagnosis: 2 three times a day DNF UNTIL SX 08/20/20 Last Documented On 1 9:48AM By Sam Saenz ; [facility] Ultram 50 MG Oral Tablet 08/22/2020 - 08/27/2020 Provider: Riaz valentine MD Diagnosis: 1-2 po q6h prn pain Last Documented On 1 9:53AM By Sam Saenz ; [facility] oxyCODONE HCl 10 MG Oral Tablet 08/22/2020 - 09/01/2020 Provider: Riaz valentine MD Diagnosis: 1-2 po q 4-6h Last Documented On 1 9:53AM By Sam Saenz ; [facility] Neurontin 300 MG Oral Capsule 08/22/2020 - 11/20/2020 Provider: Riaz valentine MD Diagnosis: 1 every bedtime Last Documented On 1 9:53AM By Sam Saenz ; [facility] Colace 100 MG Oral Capsule 08/22/2020 - 11/20/2020 Provider: Riaz valentine MD Diagnosis: 1-2 tabs daily DNF UNTIL SX 08/20/20 Last Documented On 1 9:49AM By Sam Saenz ; [facility] Ultram 50 MG Oral Tablet 08/14/2020 - 08/19/2020 Provider: Riaz valentine MD Diagnosis: 1-2 po q6h prn pain DNF UNTIL SX 08/20/20 Last Documented On 1 2:19PM By Sam Saenz ; [facility] oxyCODONE HCl 5 MG Oral Tablet 08/14/2020 - 08/19/2020 Provider: Riaz valentine MD Diagnosis: 1-2 po q 4-6h DNF UNTIL SX 08/20/20 Last Documented On 1 2:03PM By Sam Saenz ; [facility] Neurontin 300 MG Oral Capsule 08/14/2020 - 11/12/2020 Provider: Riaz valentine MD Diagnosis: 1 every bedtime DNF UNTIL SX 08/20/20 Last Documented On 1 2:03PM By Sam Saenz ; [facility] Ultram 50 MG Oral Tablet 07/18/2020 - 07/28/2020 Provider: Riaz valentine MD Diagnosis: 1-2 po q6h prn pain Last Documented On 1 10:01AM By Sam Saenz ; [facility] oxyCODONE HCl 10 MG Oral Tablet 07/18/2020 - 07/28/2020 Provider: Riaz valentine MD Diagnosis: take as directed; take 1-2 t ablets po q 8 hours prn pain Last Documented On 1 10:01AM By Sam Saenz ; [facility] oxyCODONE HCl 5 MG Oral Tablet 10/26/2019 - 11/05/2019 Provider: Riaz valentine MD Diagnosis: Take 1 tablet every 8 hrs prn pain Last Documented On 0 3:34PM By Silva Sheridan ; [facility] oxyCODONE HCl 5MG Oral Tablet 10/06/2018 - 10/11/2018 Provider: Camilo skinner MD Diagnosis: 1-2 po q6h prn pain Last Documented On 9 11:59AM By Silva Sheridan ; [facility] oxyCODONE HCl 5MG Oral Tablet 09/08/2018 - 09/13/2018 Provider: Riaz valentine MD Diagnosis: 1-2 po q6h prn pain Last Documented On 9 10:08AM By Oma Child ; [facility] Colace 100MG Oral Capsule 08/17/2018 - 11/15/2018 Provider: Riaz valentine MD Diagnosis: 1-2 tabs daily FOR SURGERY DO NOT FILL UNTIL 08/22/18 Last Documented On 9 8:57AM By Lorena Mijares ; [facility] Acetaminophen 500MG Oral Tablet 08/17/2018 - 09/16/2018 Provider: Riaz Saenz MD Diagnosis: 2 three times a day FOR RODRIGUEZ RGERY DO NOT FILL UNTIL 08/22/18 Last Documented On 9 8:56AM By Lorena Mijares ; [facility] traMADol HCl 50MG Oral Tablet 08/17/2018 - 08/22/2018 Provider: Riaz valentine MD Diagnosis: 1-2 po q6h prn pain FOR RODRIGUEZ RGERY DO NOT FILL UNTIL 08/22/18 Last Documented On 9 8:57AM By Lorena Mijares ; [facility] oxyCODONE HCl 5MG Oral Tablet 08/17/2018 - 08/22/2018 Provider: Riaz valentine MD Diagnosis: 1-2 po q6h prn pain FOR RODRIGUEZ RGERY DO NOT FILL UNTIL 08/22/18 Last Documented On 9 8:57AM By Lorena Mijares ; [facility] Neurontin 300MG Oral Capsule 08/17/2018 - 11/15/2018 Provider: Riaz valentine MD Diagnosis: 1 every bedtime FOR SURGER Y DO NOT FILL UNTIL 08/22/18 Last Documented On 9 8:57AM By Lorena Mijares ; [facility] Dilaudid 2MG Oral Tablet 08/17/2018 - 08/19/2018 Provi ofelia: Riaz Saenz MD Diagnosis: 1-2 po q6h prn pain (RESCUE PAIN)FOR SURGERY DO NOT FILL UNTIL 08/22/18 Last Documented On 9 8:57AM By Lorena Mijares ; [facility] Mupirocin 2% External Ointment 07/22/2018 - 07/27/2018 Provider: Riaz valentine MD Diagnosis: Apply to nostrils 3 times a day 5 days prior to surgery. Last Documented On 9 1:17PM By Silva Sheridan ; [facility] OxyCODONE HCl 5MG Oral Tablet 11/13/2016 - 12/13/2016 Provider: Stan Romero MD Diagnosis: 1-2 po q 4-6h, post op Last Documented On 7 9:34AM By Maira Booker ; [facility] OxyCODONE HCl 5 MG Tablet 10/19/2016 - 10/29/2016 Prov ider: Riaz Saenz MD Diagnosis: 1-2 po q 4-6h FOR SURGERY Last Documented On 7 11:41AM By Sravanthi Elizondo ; [facility] Neurontin 300 MG Capsule 10/19/2016 - 01/17/2017 Provi ofelia: Riaz Saenz MD Diagnosis: 1 every bedtime FOR SURGERY Last Documented On 7 11:41AM By Sravanthi Elizondo ; [facility] Mobic 15 MG Tablet 10/19/2016 - 11/18/2016 Provider: Riaz Saenz MD Diagnosis: once a day FOR SURGERYDO N OT FILL TILL 10/26/16 Last Documented On 7 11:51AM By Sravanthi Elizondo ; [facility] Colace 100 MG Capsule 10/19/2016 - 01/17/2017 Provider : Riaz Saenz MD Diagnosis: 1-2 tabs daily FOR SURGERY * *DO NOT FILL TILL 10/26/16 Last Documented On 7 11:51AM By Sravanthi Elizondo ; [facility] Acetaminophen 500 MG Tablet 10/19/2016 - 10/27/2016 Pr ovider: Riaz Saenz MD Diagnosis: 2 three times a day FOR SURG ANITHADO NOT FILL TILL 10/26/16 Last Documented On 7 11:51AM By Sravanthi Elizondo ; [facility] TraMADol HCl 50 MG Tablet 10/19/2016 - 11/01/2016 Provider: Riaz valentine MD Diagnosis: 2 tablets every 6 hours FOR SURGERY Last Documented On 7 11:42AM By Sravanthi Elizondo ; [facility], [facility] Medications Administered Includes: Administered Medications from this encounter No Administered Medications Recorded Vital Signs Includes: Vital Signs from this encounter Vital Name 11/26/2022 12:19P Height (in) 60 Weight (lb) 210 Body Mass Index 41 Body Surface Area 1.9 Note: SV Last Documented: On 11/26/2022 12:20P M ; [facility], [facility] Results Includes: Results discussed during this encounter No Results Recorded For Specified Dates History of Present Illness Includes: History of Present Illness from this encounter HPI Sy Barlow is an 82 year old female. - Allergy list reviewed - Problem list reviewed - Medication reconciliation performed - Medication list reviewed - Sharp pain Symptoms - Pain is occasional (25% of the time) - Patient pain level from 1-10: 8 - History of Physical Therapy Social History Description Last Updated Exercising regularly 11/27/2022 Last Documented On 4 2:50PM ; [facility], [facility] Tobacco non-user 11/20/2021 Last Documented On 3 11:40AM ; [facility] No recent change in diet 06/19/2021 Last Documented On 3 11:40AM ; [facility] Not a current smoker. 06/19/2021 Last Documented On 3 11:40AM ; [facility] Not a current smoker. 05/02/2020 Last Documented On 3 11:40AM ; [facility] Non-smoker 02/01/2020 Last Documented On 3 11:40AM ; [facility] Caffeine use 07/23/2016 Last Documented On 3 11:40AM ; [facility] No recent change in diet 07/23/2016 Last Documented On 3 11:40AM ; [facility] Not a current smoker 07/23/2016 Last Documented On 3 11:40AM ; [facility] Not using alcohol 07/23/2016 Last Documented On 3 11:40AM ; [facility] Not using drugs 07/23/2016 Last Documented On 3 11:40AM ; [facility], [facility] No tobacco use 07/23/2016 Last Documented On 3 11:40AM ; [facility], [facility] Smoking status : Never smoker 07/23/2016 Last Documented On 3 11:40AM ; [facility], [facility] Procedures and Surgical History Includes: Procedures from this encounter Procedures Code Diagnosis Performing Provider Service L ocation Service Date history of orthopedic options: physical therapy Last Documented On 3 11:41AM ; [facility], [facility] use of tobacco assessment performed 1000F Last Documented On 3 11:41AM ; [facility], [facility] patient screened for future fall risk: documentation of any fall with injury in past year 1100F Last Documented On 3 11:41AM ; [facility], [facility] review of medications documented 1160F Last Documented On 3 10:53AM ; [facility], [facility] Pt received screening for fall risk [id number] Last Documented On 3 11:41AM ; [facility], [facility] Surgical History Last Updated History of shoulder arthroplasty 017 Last Documented On 3 11:40AM ; [facility] History of total knee arthroplasty 07/23 Last Documented On 3 11:40AM ; [facility], [facility] Medical History Includes: Medical History addressed during this encounter Description Last Updated History of arthritis 11/27/2022 Last Documented On 4 2:50PM ; [facility] History of History of Blood Transfusion 11/27/2022 Last Documented On 4 2:50PM ; [facility] History of Sleep Apnea 11/27/2022 Last Documented On 4 2:50PM ; [facility], [facility] History of Thyroid Disease 11/27/2022 Last Documented On 4 2:50PM ; [facility] Use of CPAP 11/27/2022 Last Documented On 4 2:50PM ; [facility] Anemia 05/02/2020 Last Documented On 3 11:40AM ; [facility] Heartburn / Acid Reflux 05/02/2020 Last Documented On 3 11:40AM ; [facility] Hypertension 05/02/2020 Last Documented On 3 11:40AM ; [facility] Irregular Heartbeat 05/02/2020 Last Documented On 3 11:40AM ; [facility] Recent immunization for flu 05/02/2020 Last Documented On 3 11:40AM ; [facility] Use of CPAP 05/02/2020 Last Documented On 3 11:40AM ; [facility] high cholesterol, acid reflu x, irregular heartbeat, blood transfusion, cataracs, anemia 08/17/2019 Last Documented On 3 11:40AM ; [facility] History of asthma 06/09/2018 Last Documented On 3 11:40AM ; [facility], [facility] A previous fracture 07/23/2016 Last Documented On 3 11:40AM ; [facility] A recent immunization for pneumococcal p neumonia 07/23/2016 Last Documented On 3 11:40AM ; [facility] Arthritic joint problems 07/23/2016 Last Documented On 3 11:40AM ; [facility] - [facility], [facility] Intermittent hypertension 07/23/2016 Last Documented On 3 11:40AM ; [facility], [facility] Thyroid disease 07/23/2016 Last Documented On 3 11:40AM ; [facility], [facility] A recent injection 07/23/2016 Last Documented On 3 11:40AM ; [facility], [facility] Family History Includes: Family History addressed during this encounter Description Last Updated Stroke/seizure 12/17/2016 Last Documented On 3 11:40AM ; [facility], [facility] Maternal history of hypertension 017 Last Documented On 3 11:40AM ; [facility], [facility] Maternal history of osteoporosis 017 Last Documented On 3 11:40AM ; [facility] Paternal history of family history of ca ncer 07/23/2016 Last Documented On 3 11:40AM ; [facility] Review of Systems Includes: Review of Systems from this encounter Systemic: Not feeling tired, no recent weight loss, and no recent weight gain. Edema. Head: No headache and no sinus pain. Eyes: No vision problems glasses/contacts, no vision problems, and no glaucomatous visual field defect. Cataracts and Glasses/Contacts. No Glaucoma. Otolaryngeal: Hearing loss. No hearing loss. Tinnitus. No nasal symptoms. Cardiovascular: No chest pain or discomfort and no palpitations. Hypertension and High Cholesterol. Pulmonary: Daytime asthma symptoms. No cough. Chronic cough. No wheezing. Gastrointestinal: No heartburn and no abdominal pain. No Indigestion, no Acid Reflux, no Peptic Ulcer, no GI Stomach Bleed, and no Ulcers. Endocrine: No hot flashes. Muscle weakness. No Diabetes. Hypothyroid. No Hyperthyroid. Hematologic: No easy bleeding. A tendency for easy bruising. No Anemia. Musculoskeletal: Arthritis, lower back pain, soft tissue swelling, and pain localized to one or more joints. Neurological: No dizziness, no convulsions, and no numbness. Psychological: No anxiety, no emotional lability, no depression, and no insomnia. Not crying for no reason. Skin: No dry skin. No Ulcers. Scars. No rash and no ulcers. Allergic and Immunologic: Complaint of seasonal allergic [...] Active Last Documented On 5 10:57AM ; [facility] Naproxen Allergy 06/09/2018 Active Last Documented On 5 10:57AM ; [facility] Mobic Allergy 06/09/2018 Active Last Documented On 5 10:57AM ; [facility] Encounters Encounter Provider Location Date Check-In Time Check-Out Time Diagnosis Follow Up [facility] 11/27/19 23 10:43AM 12:40PM Overweight Insurance Includes: Active Insurance Policies Plan Name Member ID Group # Subscriber Relationship Effect ivan Dates 1 - [facility] /MEDICARE [id number] Sy Barlow Self 03/01/2016 - Unknown Clinical Notes Includes: Clinical Notes from this encounter * Progress note Date Encounter Last Documented by 11/26/2022 Follow Up Last documented on 04/13/2023; 2:50 PM, Riaz Saenz MD; [facility], [facility] Active Problems & Conditions - History of Joint Pain in the Left Knee - Joint Pain in the Left Hip - Joint Pain in the Left Knee - Joint Pain, Localized in the Shoulder Chief Complaint The Chief Complaint is: Right knee pain AND LEFT HIP PAIN. Referred Here Referred by PCP. History of Present Illness Sy Barlow is an 82 year old female. - Allergy list reviewed - Problem list reviewed - Medication reconciliation performed - Medication list reviewed - Sharp pain Symptoms - Pain is occasional (25% of the time) - Patient pain level from 1-10: 8 - History of Physical Therapy Current Medication - Adult Aspirin Regimen 81 MG Oral Tablet Delayed Release 0 days, 0 refills - Cephalexin 500 MG Oral Capsule 30 days, 0 refills - Cephalexin 500 MG Oral Capsule 30 days, 0 refills - CoQ-10 100 MG Oral Capsule 0 days, 0 refills - Crestor 10 MG Oral Tablet 0 days, 0 refills - [facility] Magnesium 250 MG Oral Tablet 0 days, 0 refills - Cymbalta 20 MG Oral Capsule Delayed Release Particles 0 days, 0 refills - Daily Multivitamin Oral Capsule 0 days, 0 refills - Diclofenac Sodium 75 MG Oral Tablet Delayed Release 90 days, 0 refills - Doxycycline Hyclate 100 MG Oral Capsule 30 days, 0 refills - Furosemide 40 MG Oral Tablet 30 days, 0 refills - HYDROcodone-Acetaminophen 7.5-325 MG Oral Tablet 30 days, 0 refills - Lisinopril 5 MG Oral Tablet 30 days, 0 refills - MiraLax 17 GM Oral Packet 0 days, 0 refills - Potassium Chloride Fiona ER 20 MEQ Oral Tablet Extended Release 90 days, 0 refills - QC Tumeric Complex 500 MG Oral Capsule 0 days, 0 refills - Synthroid 100 MCG Oral Tablet 0 days, 0 refills - traMADol HCl 100 MG Oral Tablet 0 days, 0 refills - Vitamin D3 1.25 MG (40563 UT) Oral Capsule 0 days, 0 refills - Voltaren 1% External Gel 0 days, 0 refills - Xyzal Allergy 24HR 5 MG Oral Tablet 0 days, 0 refills Past Medical/Surgical History Reported: Use of CPAP. Use of CPAP. Medical: Thyroid disease, joint problems arthritic, and a fracture. Intermittent hypertension. Medications: A recent injection. Immunization History: Recent immunization for flu and for pneumococcal pneumonia. Diagnoses: Asthma. Anemia. History of Blood Transfusion. Irregular Heartbeat. Sleep Apnea. Heartburn / Acid Reflux. Thyroid Disease. Hypertension. Arthritis High cholesterol, acid reflux, irregular heartbeat, blood transfusion, cataracs, anemia. Surgical: - Shoulder arthroplasty - Total knee arthroplasty Previous Therapy - History of orthopedic options: physical therapy Social History Not a current smoker. Not [...] Naproxen - Penicillin G Benzathine Family History Paternal: Cancer Maternal: Systemic hypertension Osteoporosis Stroke/seizure Review Of Systems Systemic: Not feeling tired, no recent weight loss, and no recent weight gain. Edema. Head: No headache and no sinus pain. Eyes: No vision problems glasses/contacts, no vision problems, and no glaucomatous visual field defect. Cataracts and Glasses/Contacts. No Glaucoma. Otolaryngeal: Hearing loss. No hearing loss. Tinnitus. No nasal symptoms. Cardiovascular: No chest pain or discomfort and no palpitations. Hypertension and High Cholesterol. Pulmonary: Daytime asthma symptoms. No cough. Chronic cough. No wheezing. Gastrointestinal: No heartburn and no abdominal pain. No Indigestion, no Acid Reflux, no Peptic Ulcer, no GI Stomach Bleed, and no Ulcers. Endocrine: No hot flashes. Muscle weakness. No Diabetes. Hypothyroid. No Hyperthyroid. Hematologic: No easy bleeding. A tendency for easy bruising. No Anemia. Musculoskeletal: Arthritis, lower back pain, soft tissue swelling, and pain localized to one or more joints. Neurological: No dizziness, no convulsions, and no numbness. Psychological: No anxiety, no emotional lability, no depression, and no insomnia. Not crying for no reason. Skin: No dry skin. No Ulcers. Scars. No rash and no ulcers. Allergic and Immunologic: Complaint of seasonal allergic reaction. Physical Findings - Vitals taken 11/26/2022 12:19 pm SV Height 60 in Weight 210 lbs Body Mass Index 41 kg/m2 Body Surface Area 1.9 m2 PATIENT ORIENTED WITH NORMAL APPEARANCE GAIT: IN MOTORIZED WHEELCHAIR RIGHT KNEE: ROM: 10-90 DEGREES 30 DEGREE EXTENSOR LAG LEFT GREATER THAN RIGHT DISTAL TIBIAL SWELLING AND REDNESS WELL HEALED INCISION LEFT KNEE: ROM: 10-80 DEGREES 40 DEGREE EXTENSOR LAG LEFT GREATER THAN RIGHT DISTAL TIBIAL SWELLING AND REDNESS WELL HEALED INCISION Tests LEFT HIP XR (2 VIEWS): MINIMAL DJD. CEMENTED FEMORAL STEM PRESENT. RIGHT KNEE XR (3 VIEWS): PATELLA BOBO. NO EVIDENCE OF LOOSENING LEFT KNEE XR (3 VIEWS): NO OBVIOUS FRACTURE OR IMPLANT MALFUNCTION. PATELLA BOBO WITH FAILED WIRE. 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 NOW WHEELCHAIR BOUND BUT LIVES ALONE. COMFORTABLE WHEN SEATED BUT WHEN STAND UP PAIN IS 10/10. NO LOOSENING ON XRAYS. 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 CONTINUES ON SUPPRESSIVE ABX. Therapy - Pt received screening for fall risk. Counseling/Education - Lose weight Plan Fall Risk Assessment: This patient has been identified as a fall risk. Balance/gait along with postural blood pressure, vision and home fall hazards have been assessed. Medications have been reviewed, and recommendations made with regard to contributing factors for future falls. Plan of care: Consideration of vitamin D supplementation along with balance and strength training with consideration for formal physical therapy has been discussed with the patient. NON-SURGICAL PLAN: WEIGHT LOSS TESTS ORDERED: BILATERAL LE GENICULAR NERVE BLOCK FOLLOW UP: 2 YEARS WITH BILATERAL KNEE XOA Notes This dictation was done with voice recognition software and may contain errors and omissions. Practice Management Use of tobacco assessment performed and patient screened for future fall risk documentation of any fall with injury in past year Review of medications documented. Care Team - VERONICA SCHUSTER MD - CUSTOM TAILOR APPRENTICE
--- OUTSIDE RECORDS SUMMARY | 2024-06-08 21:15 | XMS_ITS ---
Care Plan - [facility], [facility] Created on: June 08, 2024 Sy Barlow : 1940 Sex: Female Author Organization [facility] , [facility] Address [address] [place] [address] Phone Care Team Providers Care Retail Maintenance Technician Name Role Phone LANDEN CORADO, VERONICA Unavailable [phone] Dany CORADO, Riaz Watkins Unavailable [phone] Flavia Gomez APRN Primary Care Provid er Unavailable
--- OUTSIDE RECORDS SUMMARY | 2024-06-08 21:15 | XMS_ITS | Clinical Summary ---
Author Organization [facility] , [facility] Address [address] [place] [address] Phone Care Team Providers Care Assistant Professor Of English Name Role Phone LANDEN CORADO, VERONICA Unavailable [phone] Dany CORADO, Riaz Watkins Unavailable [phone] Flavia Gomez APRN Primary Care Provid er Unavailable Reason for Visit and Chief Complaint [Patient Encounter] Problems Includes: Problems addressed during this encounter and other active Problems All Visits Onset Date Resolved Date Provider Condition S tatus Joint Pain, Localized in the Left Shoulder 04/10/2024 Yusef Doshi PA-C Active Last Documented On 5 10:53AM ; [facility] Joint Pain in the Left Hip 11/26/2022 Riaz Saenz MD Active Last Documented On 3 12:19PM ; [facility] History of Joint Pain in the Left Knee 11/14/2020 Riaz Saenz MD Ac tive Last Documented On 1 1:02PM ; [facility], [facility] Joint Pain, Localized in the Shoulder 06/29/2018 Steven Saavedra MD Active Last Documented On 9 1:58PM ; [facility], [facility] Joint Pain in the Left Knee 07/23/2016 Patrice Saenz MD Active Last Documented On 7 1:23PM ; [facility], [facility] Plan of Treatment Pending Tests Order Diagnosis Results Due Ordering P rovider Lab Orders CRP 07/23/16 Riaz Saenz MD Last Documented On 7 10:35AM ; [facility], [facility] Lab Orders ESR 07/23/16 Riaz Saenz MD Last Documented On 7 10:35AM ; [facility], [facility] Lab Orders - CC Aspirations Aerobic/Anaerobic Culture 11/09/16 Michael Saenz MD Last Documented On 7 9:01AM ; [facility], [facility] Lab Orders - CC Aspirations Cell Count with DIFF 11/09/16 Riaz Saenz MD Last Documented On 7 9:01AM ; [facility], [facility] Future Appointments Date Time Location Provi ofelia Follow Up 07/10/2024 11:00AM [facility] paedics Building B Yusef Doshi PA-C Last Documented On 5 11:44AM ; [facility], [facility] Follow Up 11/30/2024 11:30AM [facility] PS C Riaz Saenz MD Last Documented On 5 2:30PM ; [facility], [facility] Assessments Includes: Assessments from this encounter No Assessments Recorded Medical Equipment - Implanted Devices Includes: Current Devices No Medical Equipment Recorded Medications Includes: Medications discussed during this encounter and other current Medications Current Medications (continue as prescribed) Cephalexin 125 MG/5ML Oral Suspension Reconstituted Provider: Diagnosis: Last Documented On 5 10:55AM By Raina Gonzales ; [facility], [facility] Zyzal Oral Tablet 04/10/2024 Provider: Diagnosis: Last Documented On 5 10:54AM By Raina Wilde [facility], [facility] Turmeric Curcumin 500 MG Oral Capsule 04/10/2024 Provider: Diagnosis: Last Documented On 5 10:56AM By Raina Gonzales ; [facility], [facility] Potassium Oral Tablet 04/10/2024 Provider: Diagnosis: Last Documented On 5 10:56AM By Raina Gonzales ; [facility], [facility] Crestor 10 MG Oral Tablet 04/10/2024 Provider: Diagnosis: Last Documented On 5 10:55AM By Raina Gonzales ; [facility], [facility] Cymbalta 20 MG Oral Capsule Delayed Release Particles 04/10/2024 Provider: Diagnosis: Last Documented On 5 10:55AM By Raina Gonzales ; [facility], [facility] HYDROcodone-Acetaminophen 7. 5-325 MG Oral Tablet 04/07/2024 Provider: Sonido Seo MD Diagnosis: Last Documented On 5 10:54AM By Raina Gonzales ; [facility] Lisinopril 5 MG Oral Tablet 04/06/2024 Provider: VERONICA SCHUSTER MD Diagnosis: Last Documented On 5 10:54AM By Raina Gonzales ; [facility], [facility] Doxycycline Monohydrate 100 MG Oral Capsule 03/28/2024 Provider: Diagnosis: Last Documented On 5 10:54AM By Raina Gonzales ; [facility], [facility] Potassium Chloride Fiona ER 2 0 MEQ Oral Tablet Extended Release 03/27/2024 Provider: Flavia Gomez APRN Diagnosis: Last Documented On 5 10:54AM By Raina Gonzales ; [facility], [facility] Diclofenac Sodium 75 MG Oral Tablet Delayed Release 03/12/2024 Provider: VERONICA SCHUSTER MD Diagnosis: Last Documented On 5 10:54AM By Raina Gonzales ; [facility], [facility] Furosemide 40 MG Oral Tablet 03/12/2024 Provider: VERONICA SCHUSTER MD Diagnosis: Last Documented On 5 10:54AM By Raina Gonzales ; [facility], [facility] Levocetirizine Dihydrochlori de 5 MG Oral Tablet 03/12/2024 Provider: VERONICA SCHUSTER MD Diagnosis: Last Documented On 5 10:54AM By Raina Gonzales ; [facility], [facility] Synthroid 100 MCG Oral Tablet 03/12/2024 Provider: VERONICA SCHUSTER MD Diagnosis: Last Documented On 5 10:54AM By Raina Gonzales ; [facility], [facility] Rosuvastatin Calcium 10 MG Oral Tablet 03/12/2024 Pr ovider: VERONICA SCHUSTER MD Diagnosis: Last Documented On 5 10:54AM By Raina Gonzales ; [facility] DULoxetine HCl 60 MG Oral Ca psule Delayed Release Particles 03/12/2024 Provider: VERONICA SCHUSTER MD Diagnosis: Last Documented On 5 10:54AM By Raina Gonzales ; [facility], [facility] HYDROcodone-Acetaminophen 7. 5-325 MG Oral Tablet 03/03/2024 Provider: Sonido Seo MD Diagnosis: Last Documented On 5 10:54AM By Raina Gonzales ; [facility], [facility] Caltrate 600 1500 (600 Ca) MG Oral Tablet 11/27/2022 Provider: Diagnosis: Last Documented On 3 11:00AM By Sam Saenz ; [facility], [facility] B Complex-B12 Oral Tablet 11/27/2022 Provider: Diagnosis: Last Documented On 3 10:59AM By Sam Saenz ; [facility], [facility] HYDROcodone-Acetaminophen 7. 5-325 MG Oral Tablet 11/18/2022 Provider: Sonido Seo MD Diagnosis: Last Documented On 3 10:57AM By Sam Saenz ; [facility], [facility] Daily Multivitamin Oral Capsule 11/20/2021 Provider: Diagnosis: Last Documented On 2 11:05AM By Catrachita Hickman ; [facility], [facility] MiraLax 17 GM Oral Packet 11/20/2021 Provider: Diagnosis: Last Documented On 2 11:04AM By Catrachita Hickman ; [facility], [facility] Voltaren 1% External Gel 11/20/2021 Provider: Diagnosis: Last Documented On 2 11:04AM By Catrachita Hickman ; [facility], [facility] QC Tumeric Complex 500 MG Oral Capsule 11/20/2021 Pr ovider: Diagnosis: Last Documented On 2 11:03AM By Catrachita Hickman ; [facility], [facility] Cymbalta 20 MG Oral Capsule Delayed Release Particles 11/20/2021 Provider: Diagnosis: Last Documented On 2 11:02AM By Catrachita Hickman ; [facility], [facility] Crestor 10 MG Oral Tablet 11/20/2021 Provider: Diagnosis: Last Documented On 2 11:02AM By Catrachita Hickman ; [facility], [facility] Adult Aspirin Regimen 81 MG Oral Tablet Delayed Releas e 11/20/2021 Provider: Diagnosis: Last Documented On 2 11:02AM By Catrachita Hickman ; [facility], [facility] Magnesium 250 MG Oral Tablet 11/20/2021 Provider : Diagnosis: Last Documented On 2 11:03AM By Catrachita Hickman ; [facility], [facility] Vitamin D3 1.25 MG (37694 UT) Oral Capsule 11/20/2021 Provider: Diagnosis: Last Documented On 2 11:03AM By Catrachita Hickman ; [facility], [facility] CoQ-10 100 MG Oral Capsule 11/20/2021 Provider: Diagnosis: Last Documented On 2 11:03AM By Catrachita Hickman ; [facility], [facility] Xyzal Allergy 24HR 5 MG Oral Tablet 11/20/2021 Provi ofelia: Diagnosis: Last Documented On 11:01AM By Catrachita Hickman ; [facility], [facility] Synthroid 100 MCG Oral Tablet 11/20/2021 Provider: Diagnosis: Last Documented On 11:01AM By Catrachita Hickman ; [facility], [facility] Doxycycline Hyclate 100 MG Oral Capsule 11/17/2021 P rovider: Diagnosis: Last Documented On 11:02AM By Catrachita Hickman ; [facility], [facility] Diclofenac Sodium 75 MG Oral Tablet Delayed Release 10/17/2021 Provider: VERONICA SCHUSTER MD Diagnosis: Last Documented On 11:02AM By Catrachita Hickman ; [facility], [facility] Cephalexin 500 MG Oral Capsule 10/14/2021 Provider: Diagnosis: Last Documented On 11:02AM By Catrachita Hickman ; [facility], [facility] Potassium Chloride Fiona ER 2 0 MEQ Oral Tablet Extended Release 09/24/2021 Provider: VERONICA SCHUSTER MD Diagnosis: Last Documented On 2 11:02AM By Catrachita Hickman ; [facility], [facility] Furosemide 40 MG Oral Tablet 07/14/2021 Provider: Kaycee Robin MD Diagnosis: Last Documented On 11:02AM By Catrachita Hickman ; [facility], [facility] Lisinopril 5 MG Oral Tablet 06/20/2021 Provider: Kaycee Robin MD Diagnosis: Last Documented On 11:00AM By Catrachita Hickman ; [facility], [facility] Medications Administered Includes: Administered Medications from this encounter No Administered Medications Recorded Results Includes: Results discussed during this encounter No Results Recorded For Specified Dates History of Present Illness Includes: History of Present Illness from this encounter No History of Present Illness Recorded Social History No Social History Recorded - Smoking Status Unknown Medical History Includes: Medical History addressed during this encounter No Medical History Recorded Family History Includes: Family History addressed during this encounter No Family History Recorded Review of Systems Includes: Review of Systems from this encounter No Review of Systems Recorded Mental Status Includes: Mental Status from this encounter No Mental Status Recorded Functional Status Includes: Functional Status from this encounter No Functional Status Recorded Physical Exam Includes: Physical Exam from this encounter No Physical Exam Recorded Allergies Includes: Active Allergies Substance Type Reaction Onset Date Resolved Date Statu s Penicillin G Benzathine Allergy 06/09/2018 Active Last Documented On 5 10:57AM ; [facility] Naproxen Allergy 06/09/2018 Active Last Documented On 5 10:57AM ; [facility] Mobic Allergy 06/09/2018 Active Last Documented On 5 10:57AM ; [facility], [facility] Encounters Encounter Provider Location Date Check-In Time Check-Out Time Diagnosis [Patient Encounter] Riaz Saenz MD 2 3:45PM 11:59PM Insurance Includes: Active Insurance Policies Plan Name Member ID Group # Subscriber Relationship Effect ivan Dates 1 - [facility] /MEDICARE [id number] Sy Barlow Self 03/01/2016 - Unknown Clinical Notes Includes: Clinical Notes from this encounter No Clinical Notes Recorded
--- OUTSIDE RECORDS SUMMARY | 2024-06-08 21:15 | XMS_ITS | Clinical Summary ---
Author Organization [facility] Address [address] [place] [address] Phone Care Team Providers Care Affirmative Action Officer Name Role Phone LANDEN CORADO, VERONICA Unavailable [phone] Dany CORADO, Riaz Watkins Unavailable [phone] Flavia Gomez APRN Primary Care Provid er Unavailable Reason for Visit and Chief Complaint The Chief Complaint is: right knee pain Problems Includes: Problems addressed during this encounter and other active Problems All Visits Onset Date Resolved Date Provider Condition S tatus Joint Pain, Localized in the Left Shoulder 04/10/2024 Yusef Doshi PA-C Active Last Documented On 5 10:53AM ; [facility] Joint Pain in the Left Hip 11/26/2022 Riaz Saenz MD Active Last Documented On 3 12:19PM ; [facility] History of Joint Pain in the Left Knee 11/14/2020 Riaz Saenz MD Ac tive Last Documented On 1 1:02PM ; [facility] Joint Pain, Localized in the Shoulder 06/29/2018 Steven Saavedra MD Active Last Documented On 9 1:58PM ; [facility] Joint Pain in the Left Knee 07/23/2016 Patrice Saenz MD Active Last Documented On 7 1:23PM ; [facility] Plan of Treatment NON-SURGICAL PLAN: WEIGHT LOSS PHYSICAL THERAPY; 1. DAILY MANUAL AND SPLINT STRETCHING TO ELIMINATE FLEXION CONTRACTURE LEFT KNEE 2. DAILY GENTLE FLEXION RIGHT KNEE PASSIVELY AND ACTIVELY. 3. QUAD SETS ON RIGHT LE 4. PRACTICE STANDING AND PROGRESSING TOWARD WALKING INDEPENDENTLY WITH WALKER IF PATIENT DISCHARGES FROM FACILITY; PATIENT CAN CALL FOR HOME HEALTH PHYSICAL THERAPY DAILY-3X WEEKLY DUE TO HOMEBOUND STATUS FOLLOW UP: [address] Amador; BILATERAL KNEE XOA - Last Documented On 06/20/2021 9:17AM ; [facility] Pending Tests Order Diagnosis Results Due Ordering P rovider Lab Orders CRP 07/23/16 Riaz Saenz MD Last Documented On 7 10:35AM ; [facility] Lab Orders ESR 07/23/16 Riaz Saenz MD Last Documented On 7 10:35AM ; [facility] Lab Orders - CC Aspirations Aerobic/Anaerobic Culture 11/09/16 Michael Saenz MD Last Documented On 7 9:01AM ; [facility] Lab Orders - CC Aspirations Cell Count with DIFF 11/09/16 Riaz Saenz MD Last Documented On 7 9:01AM ; [facility] Therapy - Physical Therapy Knee 06/19/21 Riaz Saenz MD Last Documented On 2 9:17AM ; [facility] Future Appointments Date Time Location Provi ofelia Follow Up 07/10/2024 11:00AM [facility] Yusef Doshi PA-C Last Documented On 5 11:44AM ; [facility] Follow Up 11/30/2024 11:30AM [facility] PS C Riaz Saenz MD Last Documented On 5 2:30PM ; [facility] Assessments Includes: Assessments from this encounter Findings 9 MONTHS S/P RIGHT TKA WITH HINGE AND EXTENSOR MECHANISM MESH RECONSTRUCTION WITH RIGHT KNEE STIFFNESS. 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 LOOKS BETTER. SMALLER FLEXION CONTRACTURE. - Last Documented On 06/20/2021 9:17AM ; [facility] Medical Equipment - Implanted Devices Includes: Current Devices No Medical Equipment Recorded Medications Includes: Medications discussed during this encounter and other current Medications Current Medications (continue as prescribed) Cephalexin 125 MG/5ML Oral Suspension Reconstituted Provider: Diagnosis: Last Documented On 5 10:55AM By Raina Gonzales ; [facility] Zyzal Oral Tablet 04/10/2024 Provider: Diagnosis: Last Documented On 5 10:54AM By Raina Gonzales ; [facility] Turmeric Curcumin 500 MG Oral Capsule 04/10/2024 Provider: Diagnosis: Last Documented On 5 10:56AM By Raina Gonzales ; [facility] Potassium Oral Tablet 04/10/2024 Provider: Diagnosis: Last Documented On 5 10:56AM By Raina Gonzales ; [facility] Crestor 10 MG Oral Tablet 04/10/2024 Provider: Diagnosis: Last Documented On 5 10:55AM By Raina Gonzales ; [facility] Cymbalta 20 MG Oral Capsule Delayed Release Particles 04/10/2024 Provider: Diagnosis: Last Documented On 5 10:55AM By Raina Gonzales ; [facility] HYDROcodone-Acetaminophen 7. 5-325 MG Oral Tablet 04/07/2024 Provider: Sonido Seo MD Diagnosis: Last Documented On 5 10:54AM By Raina Gonzales ; [facility] Lisinopril 5 MG Oral Tablet 04/06/2024 Provider: VERONICA SCHUSTER MD Diagnosis: Last Documented On 5 10:54AM By Raina Gonzales ; [facility] Doxycycline Monohydrate 100 MG Oral Capsule 03/28/2024 Provider: Diagnosis: Last Documented On 5 10:54AM By Raina Gonzales ; [facility] Potassium Chloride Fiona ER 2 0 MEQ Oral Tablet Extended Release 03/27/2024 Provider: Flavia Gomez APRN Diagnosis: Last Documented On 5 10:54AM By Raina Gonzales ; [facility] Diclofenac Sodium 75 MG Oral Tablet Delayed Release 03/12/2024 Provider: VERONICA SCHUSTER MD Diagnosis: Last Documented On 5 10:54AM By Raina Gonzales ; [facility] Furosemide 40 MG Oral Tablet 03/12/2024 Provider: VERONICA SCHUSTER MD Diagnosis: Last Documented On 5 10:54AM By Raina Gonzales ; [facility] Levocetirizine Dihydrochlori de 5 MG Oral Tablet 03/12/2024 Provider: VERONICA SCHUSTER MD Diagnosis: Last Documented On 5 10:54AM By Raina Gonzales ; [facility] Synthroid 100 MCG Oral Tablet 03/12/2024 Provider: VERONICA SCHUSTER MD Diagnosis: Last Documented On 5 10:54AM By Raina Gonzales ; [facility] Rosuvastatin Calcium 10 MG Oral Tablet 03/12/2024 Pr ovider: VERONICA SCHUSTER MD Diagnosis: Last Documented On 5 10:54AM By Raina Gonzales ; [facility] DULoxetine HCl 60 MG Oral Ca psule Delayed Release Particles 03/12/2024 Provider: VERONICA SCHUSTER MD Diagnosis: Last Documented On 5 10:54AM By Raina Gonzales ; [facility] HYDROcodone-Acetaminophen 7. 5-325 MG Oral Tablet 03/03/2024 Provider: Sonido Seo MD Diagnosis: Last Documented On 5 10:54AM By Raina Gonzales ; [facility] Caltrate 600 1500 (600 Ca) MG Oral Tablet 11/27/2022 Provider: Diagnosis: Last Documented On 3 11:00AM By Sam Saenz ; [facility] B Complex-B12 Oral Tablet 11/27/2022 Provider: Diagnosis: Last Documented On 3 10:59AM By Sam Saenz ; [facility] HYDROcodone-Acetaminophen 7. 5-325 MG Oral Tablet 11/18/2022 Provider: Sonido Seo MD Diagnosis: Last Documented On 3 10:57AM By Sam Saenz ; [facility] Daily Multivitamin Oral Capsule 11/20/2021 Provider: Diagnosis: Last Documented On 2 11:05AM By Catrachita Hickman ; [facility] MiraLax 17 GM Oral Packet 11/20/2021 Provider: Diagnosis: Last Documented On 2 11:04AM By Catrachita Hickman ; [facility] Voltaren 1% External Gel 11/20/2021 Provider: Diagnosis: Last Documented On 2 11:04AM By Catrachita Hickman ; [facility] QC Tumeric Complex 500 MG Oral Capsule 11/20/2021 Pr ovider: Diagnosis: Last Documented On 11:03AM By Catrachita Hickman ; [facility] Cymbalta 20 MG Oral Capsule Delayed Release Particles 11/20/2021 Provider: Diagnosis: Last Documented On 11:02AM By Catrachita Hickman ; [facility] Crestor 10 MG Oral Tablet 11/20/2021 Provider: Diagnosis: Last Documented On 11:02AM By Catrachita Hickman ; [facility] Adult Aspirin Regimen 81 MG Oral Tablet Delayed Releas e 11/20/2021 Provider: Diagnosis: Last Documented On 11:02AM By Catrachita Hickman ; [facility] Magnesium 250 MG Oral Tablet 11/20/2021 Provider : Diagnosis: Last Documented On 11:03AM By Catrachita Hickman ; [facility] Vitamin D3 1.25 MG (39248 UT) Oral Capsule 11/20/2021 Provider: Diagnosis: Last Documented On 11:03AM By Catrachita Hickman ; [facility] CoQ-10 100 MG Oral Capsule 11/20/2021 Provider: Diagnosis: Last Documented On 11:03AM By Catrachita Hickman ; [facility] Xyzal Allergy 24HR 5 MG Oral Tablet 11/20/2021 Provi ofelia: Diagnosis: Last Documented On 11:01AM By Catrachita Hickman ; [facility] Synthroid 100 MCG Oral Tablet 11/20/2021 Provider: Diagnosis: Last Documented On 11:01AM By Catrachita Hickman ; [facility] Doxycycline Hyclate 100 MG Oral Capsule 11/17/2021 P rovider: Diagnosis: Last Documented On 11:02AM By Catrachita Hickman ; [facility] Diclofenac Sodium 75 MG Oral Tablet Delayed Release 10/17/2021 Provider: VERONICA SCHUSTER MD Diagnosis: Last Documented On 2 11:02AM By Catrachita Hickman ; [facility] Cephalexin 500 MG Oral Capsule 10/14/2021 Provider: Diagnosis: Last Documented On 2 11:02AM By Catrachita Hickman ; [facility] Potassium Chloride Fiona ER 2 0 MEQ Oral Tablet Extended Release 09/24/2021 Provider: VERONICA SCHUSTER MD Diagnosis: Last Documented On 2 11:02AM By Catrachita Hickman ; [facility] Furosemide 40 MG Oral Tablet 07/14/2021 Provider: Kaycee Robin MD Diagnosis: Last Documented On 2 11:02AM By Catrachita Hickman ; [facility] Lisinopril 5 MG Oral Tablet 06/20/2021 Provider: Kaycee Robin MD Diagnosis: Last Documented On 2 11:00AM By Catrachita Hickman ; [facility] Past Medications on file traMADol HCl 50 MG Oral Tablet 11/20/2021 - 12/05/2021 Provider: Riaz valentine MD Diagnosis: 1 po q 6 to 8 hrs prn pain Last Documented On 2 11:46AM By Sam Saenz ; [facility] Neurontin 300 MG Oral Capsule 08/27/2020 - 11/25/2020 Provider: Riaz valentine MD Diagnosis: 1 every bedtime Last Documented On 1 1:34PM By Sam Saenz ; [facility] Ultram 50 MG Oral Tablet 08/27/2020 - 09/01/2020 Provider: Riaz valentine MD Diagnosis: 1-2 po q6h prn pain Last Documented On 1 1:34PM By Sam Saenz ; [facility] oxyCODONE HCl 10 MG Oral Tablet 08/27/2020 - 09/06/2020 Provider: Riaz valentine MD Diagnosis: 1-2 po q 4-6h Last Documented On 1 1:34PM By Sam Saenz ; [facility] Acetaminophen 500 MG Oral Tablet 08/22/2020 - 09/21/2020 Provider: Riaz Saenz MD Diagnosis: 2 three times a day DNF UNTIL SX 08/20/20 Last Documented On 1 9:48AM By Sam Saenz ; [facility] Ultram 50 MG Oral Tablet 08/22/2020 - 08/27/2020 Provider: Riaz valentine MD Diagnosis: 1-2 po q6h prn pain Last Documented On 1 9:53AM By Sam Saenz ; [facility] oxyCODONE HCl 10 MG Oral Tablet 08/22/2020 - 09/01/2020 Provider: Riaz valentine MD Diagnosis: 1-2 po q 4-6h Last Documented On 1 9:53AM By Sam Saenz ; [facility] Neurontin 300 MG Oral Capsule 08/22/2020 - 11/20/2020 Provider: Riaz valentine MD Diagnosis: 1 every bedtime Last Documented On 1 9:53AM By Sam Saenz ; [facility] Colace 100 MG Oral Capsule 08/22/2020 - 11/20/2020 Provider: Riaz valentine MD Diagnosis: 1-2 tabs daily DNF UNTIL SX 08/20/20 Last Documented On 1 9:49AM By Sam Saenz ; [facility] Ultram 50 MG Oral Tablet 08/14/2020 - 08/19/2020 Provider: Riaz valentine MD Diagnosis: 1-2 po q6h prn pain DNF UNTIL SX 08/20/20 Last Documented On 1 2:19PM By Sam Saenz ; [facility] oxyCODONE HCl 5 MG Oral Tablet 08/14/2020 - 08/19/2020 Provider: Riaz valentine MD Diagnosis: 1-2 po q 4-6h DNF UNTIL SX 08/20/20 Last Documented On 1 2:03PM By Sam Saenz ; [facility] Neurontin 300 MG Oral Capsule 08/14/2020 - 11/12/2020 Provider: Riaz valentine MD Diagnosis: 1 every bedtime DNF UNTIL SX 08/20/20 Last Documented On 1 2:03PM By Sam Saenz ; [facility] Ultram 50 MG Oral Tablet 07/18/2020 - 07/28/2020 Provider: Riaz valentine MD Diagnosis: 1-2 po q6h prn pain Last Documented On 1 10:01AM By Sam Saenz ; [facility] oxyCODONE HCl 10 MG Oral Tablet 07/18/2020 - 07/28/2020 Provider: Riaz valentine MD Diagnosis: take as directed; take 1-2 t ablets po q 8 hours prn pain Last Documented On 1 10:01AM By Sam Saenz ; [facility] oxyCODONE HCl 5 MG Oral Tablet 10/26/2019 - 11/05/2019 Provider: Riaz valentine MD Diagnosis: Take 1 tablet every 8 hrs prn pain Last Documented On 0 3:34PM By Silva Sheridan ; [facility] oxyCODONE HCl 5MG Oral Tablet 10/06/2018 - 10/11/2018 Provider: Camilo skinner MD Diagnosis: 1-2 po q6h prn pain Last Documented On 9 11:59AM By Silva Sheridan ; [facility] oxyCODONE HCl 5MG Oral Tablet 09/08/2018 - 09/13/2018 Provider: Riaz valentine MD Diagnosis: 1-2 po q6h prn pain Last Documented On 9 10:08AM By Oma Child ; [facility] Colace 100MG Oral Capsule 08/17/2018 - 11/15/2018 Provider: Riaz valentine MD Diagnosis: 1-2 tabs daily FOR SURGERY DO NOT FILL UNTIL 08/22/18 Last Documented On 9 8:57AM By Lorena Mijares ; [facility] Acetaminophen 500MG Oral Tablet 08/17/2018 - 09/16/2018 Provider: Riaz Saenz MD Diagnosis: 2 three times a day FOR RODRIGUEZ RGERY DO NOT FILL UNTIL 08/22/18 Last Documented On 9 8:56AM By Lorena Mijares ; [facility] traMADol HCl 50MG Oral Tablet 08/17/2018 - 08/22/2018 Provider: Riaz valentine MD Diagnosis: 1-2 po q6h prn pain FOR RODRIGUEZ RGERY DO NOT FILL UNTIL 08/22/18 Last Documented On 9 8:57AM By Lorena Mijares ; [facility] oxyCODONE HCl 5MG Oral Tablet 08/17/2018 - 08/22/2018 Provider: Riaz valentine MD Diagnosis: 1-2 po q6h prn pain FOR RODRIGUEZ RGERY DO NOT FILL UNTIL 08/22/18 Last Documented On 9 8:57AM By Lorena Mijares ; [facility] Neurontin 300MG Oral Capsule 08/17/2018 - 11/15/2018 Provider: Riaz valentine MD Diagnosis: 1 every bedtime FOR SURGER Y DO NOT FILL UNTIL 08/22/18 Last Documented On 9 8:57AM By Lorena Mijares ; [facility] Dilaudid 2MG Oral Tablet 08/17/2018 - 08/19/2018 Provi ofelia: Riaz Saenz MD Diagnosis: 1-2 po q6h prn pain (RESCUE PAIN)FOR SURGERY DO NOT FILL UNTIL 08/22/18 Last Documented On 9 8:57AM By Lorena Mijares ; [facility] Mupirocin 2% External Ointment 07/22/2018 - 07/27/2018 Provider: Riaz valentine MD Diagnosis: Apply to nostrils 3 times a day 5 days prior to surgery. Last Documented On 9 1:17PM By Silva Sheridan ; [facility] OxyCODONE HCl 5MG Oral Tablet 11/13/2016 - 12/13/2016 Provider: Stan Romero MD Diagnosis: 1-2 po q 4-6h, post op Last Documented On 7 9:34AM By Maira Booker ; [facility] OxyCODONE HCl 5 MG Tablet 10/19/2016 - 10/29/2016 Prov ider: Riaz Saenz MD Diagnosis: 1-2 po q 4-6h FOR SURGERY Last Documented On 7 11:41AM By Sravanthi Elizondo ; [facility] Neurontin 300 MG Capsule 10/19/2016 - 01/17/2017 Provi ofelia: Riaz Saenz MD Diagnosis: 1 every bedtime FOR SURGERY Last Documented On 7 11:41AM By Sravanthi Elizondo ; [facility] Mobic 15 MG Tablet 10/19/2016 - 11/18/2016 Provider: Riaz Saenz MD Diagnosis: once a day FOR SURGERYDO N OT FILL TILL 10/26/16 Last Documented On 7 11:51AM By Sravanthi Elizondo ; [facility] Colace 100 MG Capsule 10/19/2016 - 01/17/2017 Provider : Riaz Saenz MD Diagnosis: 1-2 tabs daily FOR SURGERY * *DO NOT FILL TILL 10/26/16 Last Documented On 7 11:51AM By Sravanthi Elizondo ; [facility] Acetaminophen 500 MG Tablet 10/19/2016 - 10/27/2016 Pr ovider: Riaz Saenz MD Diagnosis: 2 three times a day FOR SURG ANITHADO NOT FILL TILL 10/26/16 Last Documented On 7 11:51AM By Sravanthi Elizondo ; [facility] TraMADol HCl 50 MG Tablet 10/19/2016 - 11/01/2016 Provider: Riaz valentine MD Diagnosis: 2 tablets every 6 hours FOR SURGERY Last Documented On 7 11:42AM By Sravanthi Eliznodo ; [facility] Medications Administered Includes: Administered Medications from this encounter No Administered Medications Recorded Vital Signs Includes: Vital Signs from this encounter Vital Name 06/19/2021 11:48A Blood Pressure Sitting (mmHg) 163/77 Pulse Rate-Sitting (bpm) 75 Height (in) 60 Note: RITO Last Documented: On 06/19/2021 11:49A M ; [facility] Results Includes: Results discussed during this encounter No Results Recorded For Specified Dates History of Present Illness Includes: History of Present Illness from this encounter HPI Sy Barlow is a 81 year old female. - Allergy list reviewed - Problem list reviewed - Medication reconciliation performed - Medication list reviewed - Medication list reviewed with patient - Pain is occasional (25% of the time) - Yes, previous treatment. - History of Physical Therapy Social History Description Last Updated Not exercising regularly 11/27/2022 Last Documented On 2 11:15AM ; [facility] No recent change in diet 06/19/2021 Last Documented On 2 9:17AM ; [facility] Not a current smoker. 06/19/2021 Last Documented On 2 9:17AM ; [facility] Not a current smoker. 05/02/2020 Last Documented On 2 11:15AM ; [facility] Non-smoker 02/01/2020 Last Documented On 2 11:15AM ; [facility] Caffeine use 07/23/2016 Last Documented On 2 11:15AM ; [facility] No recent change in diet 07/23/2016 Last Documented On 2 11:15AM ; [facility] Not a current smoker 07/23/2016 Last Documented On 2 11:15AM ; [facility] Not using alcohol 07/23/2016 Last Documented On 2 11:15AM ; [facility] Not using drugs 07/23/2016 Last Documented On 2 11:15AM ; [facility] No tobacco use 07/23/2016 Last Documented On 2 11:15AM ; [facility] Smoking status : Never smoker 07/23/2016 Last Documented On 2 11:15AM ; [facility] Procedures and Surgical History Includes: Procedures from this encounter Procedures Code Diagnosis Performing Provider Service L ocation Service Date history of orthopedic options: physical therapy Last Documented On 2 11:15AM ; [facility] use of tobacco assessment performed 1000F Last Documented On 2 11:15AM ; [facility] body mass index not documented SEE PCP FOR WEIGH T//RITO 3008F Last Documented On 2 11:49AM ; [facility] Pt received screening for fall risk G8270 Last Documented On 2 11:15AM ; [facility] Clinical summary provided to patient Last Documented On 2 11:15AM ; [facility] an X-ray was performed [id number] Last Documented On 2 7:33PM ; [facility] history of an X-ray was performed 34004 Last Documented On 2 11:15AM ; [facility] Surgical History Last Updated History of shoulder arthroplasty 017 Last Documented On 2 11:15AM ; [facility] History of total knee arthroplasty 07/23 Last Documented On 2 11:15AM ; [facility] Medical History Includes: Medical History addressed during this encounter Description Last Updated Anemia 05/02/2020 Last Documented On 2 11:15AM ; [facility] Arthritis 05/02/2020 Last Documented On 2 11:15AM ; [facility] Heartburn / Acid Reflux 05/02/2020 Last Documented On 2 11:15AM ; [facility] History of Blood Transfusion 05/02/2020 Last Documented On 2 11:15AM ; [facility] Hypertension 05/02/2020 Last Documented On 2 11:15AM ; [facility] Irregular Heartbeat 05/02/2020 Last Documented On 2 11:15AM ; [facility] Recent immunization for flu 05/02/2020 Last Documented On 2 11:15AM ; [facility] Sleep Apnea 05/02/2020 Last Documented On 2 11:15AM ; [facility] Use of CPAP 05/02/2020 Last Documented On 2 11:15AM ; [facility] high cholesterol, acid reflu x, irregular heartbeat, blood transfusion, cataracs, anemia 08/17/2019 Last Documented On 2 11:15AM ; [facility] History of asthma 06/09/2018 Last Documented On 2 11:15AM ; [facility] A previous fracture 07/23/2016 Last Documented On 2 11:15AM ; [facility] A recent immunization for pneumococcal p neumonia 07/23/2016 Last Documented On 2 11:15AM ; [facility] Arthritic joint problems 07/23/2016 Last Documented On 2 11:15AM ; [facility] History of osteoporosis 07/23/2016 Last Documented On 2 11:15AM ; [facility] Intermittent hypertension 07/23/2016 Last Documented On 2 11:15AM ; [facility] Thyroid disease 07/23/2016 Last Documented On 2 11:15AM ; [facility] A recent injection 07/23/2016 Last Documented On 2 11:15AM ; [facility] Family History Includes: Family History addressed during this encounter Description Last Updated Family history of hypertension 0 Last Documented On 2 11:15AM ; [facility] Family history of osteoporosis 0 Last Documented On 2 11:15AM ; [facility] Family history of cancer 06/09/2018 Last Documented On 2 11:15AM ; [facility] Stroke/seizure 12/17/2016 Last Documented On 2 11:15AM ; [facility] Stroke/seizure: maternal history 017 Last Documented On 2 11:15AM ; [facility] Maternal history of hypertension 017 Last Documented On 2 11:15AM ; [facility] Maternal history of osteoporosis 017 Last Documented On 2 11:15AM ; [facility] Paternal history of family history of ca ncer 07/23/2016 Last Documented On 2 11:15AM ; [facility] Review of Systems Includes: Review of Systems from this encounter Systemic: Not feeling tired and no recent weight loss. Recent weight gain and edema. Head: No headache and no sinus pain. Eyes: Vision problems glasses/contacts. No vision problems and no glaucomatous visual field defect. Cataracts. No Glasses/Contacts and no Glaucoma. Otolaryngeal: Hearing loss. No hearing loss. Tinnitus. No nasal symptoms. Cardiovascular: No chest pain or discomfort and no palpitations. Hypertension. No High Cholesterol. Pulmonary: Daytime asthma symptoms. No [...] Active Last Documented On 5 10:57AM ; [facility] Naproxen Allergy 06/09/2018 Active Last Documented On 5 10:57AM ; [facility] Mobic Allergy 06/09/2018 Active Last Documented On 5 10:57AM ; [facility] Encounters Encounter Provider Location Date Check-In Time Check-Out Time Diagnosis Follow Up Riaz Saenz MD [facility] 06/20/19 22 11:01AM 12:32PM Insurance Includes: Active Insurance Policies Plan Name Member ID Group # Subscriber Relationship Effect ivan Dates 1 - [facility] /MEDICARE [id number] Sy Barlow Self 03/01/2016 - Unknown Clinical Notes Includes: Clinical Notes from this encounter No Clinical Notes Recorded
--- OUTSIDE RECORDS SUMMARY | 2024-06-08 21:15 | XMS_ITS | Clinical Summary ---
Author Organization [facility] Address [address] [place] [address] Phone Care Team Providers Care Flight Agent Name Role Phone LANDEN CORADO, VERONICA Unavailable [phone] Riaz Saenz MD Unavailable + [phone] Flavia Gomez APRN Primary Care Provid er Unavailable Reason for Referral Date Encounter Description Provider Reason for Referral 11/20/21 Follow Up Riaz Dobbs Referral To Physician Reason for Visit and Chief Complaint The Chief Complaint is: right knee pain Problems Includes: Problems addressed during this encounter and other active Problems All Visits Onset Date Resolved Date Provider Condition S tatus Joint Pain, Localized in the Left Shoulder 04/10/2024 Yusef Doshi PA-C Active Last Documented On 5 10:53AM ; [facility] Joint Pain in the Left Hip 11/26/2022 Riaz Saenz MD Active Last Documented On 3 12:19PM ; [facility] History of Joint Pain in the Left Knee 11/14/2020 Riaz Saenz MD Ac tive Last Documented On 1 1:02PM ; [facility] Joint Pain, Localized in the Shoulder 06/29/2018 Steven Saavedra MD Active Last Documented On 9 1:58PM ; [facility] Joint Pain in the Left Knee 07/23/2016 Patrice Saenz MD Active Last Documented On 7 1:23PM ; [facility] Plan of Treatment Fall Risk Assessment: [...] with the patient. - Last Documented On 11/21/2021 12:39PM ; [facility] NON-SURGICAL PLAN: CONTINUE PHYSICAL THERAPY FOR RIGHT QUAD STRENGTHENING, RIGHT KNEE PASSIVE EXTENSION AND FLEXION, GAIT TRAINING AND TRANSFERS. MEDICATION: TRAMADOL 50 MG REFERRAL TO: - Last Documented On 11/21/2021 12:39PM ; [facility] DR. SANTACRUZ FOR PAIN MANAGEMENT AND TRAMADOL CONTROL FOLLOW UP: [address] Amador; BILATERAL KNEE XOA - Last Documented On 11/21/2021 12:39PM ; [facility] Pending Tests Order Diagnosis Results Due Ordering P rovider Lab Orders CRP 07/23/16 Riaz Saenz MD Last Documented On 7 10:35AM ; [facility] Lab Orders ESR 07/23/16 Riaz Saenz MD Last Documented On 7 10:35AM ; [facility] Lab Orders - CC Aspirations Aerobic/Anaerobic Culture 11/09/16 Michael Saenz MD Last Documented On 7 9:01AM ; [facility] Lab Orders - CC Aspirations Cell Count with DIFF 11/09/16 Riaz Saenz MD Last Documented On 7 9:01AM ; [facility] Therapy - Physical Therapy Knee 11/20/21 Riaz Saenz MD Last Documented On 2 12:39PM ; [facility] Referrals To Diagnosis Consult for Pain Management Last Documented On 2 12:39PM ; [facility] Future Appointments Date Time Location Provi ofelia Follow Up 07/10/2024 11:00AM [facility] Robbie Doshi PA-C Last Documented On 5 11:44AM ; [facility] Follow Up 11/30/2024 11:30AM [facility] Riaz Saenz MD Last Documented On 5 2:30PM ; [facility] Instructions to patient Lose weight Last Documented On 2 11:06AM ; [facility] Assessments Includes: Assessments from this encounter Findings ONE YEAR S/P RIGHT TKA REVISION WITH MESH RECONSTRUCTION RIGHT QUAD. XRAYS STABLE WITH ELEVATED PATELLA. IMPROVED FLEXION MAKING IT EASIER TO TRANSFER AND GET IN AND OUT CAR. STILL CANNOT WALK WITHOUT WALKER. - Last Documented On 11/21/2021 12:39PM ; [facility] Instructions Includes: Instructions from this encounter Instructions to patient Lose weight Last Documented On 2 11:06AM ; [facility] Medical Equipment - Implanted Devices Includes: Current Devices No Medical Equipment Recorded Medications Includes: Medications discussed during this encounter and other current Medications Discontinued / Stopped on this date on 01/30/2021 Advair HFA 115-21 MCG/ACT Inhalation Aerosol Provider: Diagnosis: Last Documented On 2 10:58AM By Catrachita Hickman ; [facility] methylPREDNISolone 4 MG Oral Tablet Therapy Pack Provider: Diagnosis: Last Documented On 2 10:58AM By Catrachita Hickman ; [facility] Hydrocortisone 1% External Cream Provider : Diagnosis: Last Documented On 2 10:58AM By Catrachita Hickman ; [facility] Levothyroxine Sodium 100 MCG Oral Tablet Provider: Diagnosis: Last Documented On 2 10:58AM By Catrachita Hickman ; [facility] Mupirocin 2% External Ointment Provider: Riaz Saenz MD Diagnosis: Last Documented On 2 10:58AM By Catrachita Hickman ; [facility] Protonix 40 MG Oral Tablet Delayed Release Provider: Diagnosis: Last Documented On 2 10:59AM By Catrachita Hickman ; [facility] Potassium Chloride Fiona ER 20 MEQ Oral Tablet Extended Release Provider: Diagnosis: Last Documented On 2 10:59AM By Catrachita Hickman ; [facility] oxyCODONE HCl 5 MG Oral Tablet Provider: Diagnosis: Last Documented On 2 10:59AM By Catrachita Hickman ; [facility] Daily Multivitamin Oral Capsule Provider: Diagnosis: Last Documented On 2 10:58AM By Catrachita Hickman ; [facility] Milk of Magnesia 400 MG/5ML Oral Suspension Provider: Diagnosis: Last Documented On 2 10:59AM By Catrachita Hickman ; [facility] MiraLax Oral Packet Provider: Diagnosis: Last Documented On 2 10:59AM By Catrachita Hickman ; [facility] Magnesium 250 MG Oral Tablet Provider : Diagnosis: Last Documented On 2 10:58AM By Catrachita Hickman ; [facility] Senokot S 8.6-50 MG Oral Tablet Provider: Diagnosis: Last Documented On 2 10:59AM By Catrachita Hickman ; [facility] Lisinopril 10 MG Oral Tablet Provider: Diagnosis: Last Documented On 10:59AM By Catrachita Hickman ; [facility] Warfarin Sodium 1 MG Oral Tablet Provider : Diagnosis: Last Documented On 10:59AM By Catrachita Hickman ; [facility] Tubersol 5 UNIT/0.1ML Intradermal Solution Provider: Diagnosis: Last Documented On 2 10:59AM By Catrachita Hickman ; [facility] [place] [facility] Synthroid 100 MCG Oral Tablet Provider: Diagnosis: Last Documented On 2 10:59AM By Catrachita Hickman ; [facility] [place] [facility] Aspirin 81 MG Oral Tablet Delayed Release Provider: Diagnosis: Last Documented On 10:58AM By Catrachita Hickman ; [facility] [place] [facility] Acetaminophen 325 MG Oral Tablet Provider : Diagnosis: Last Documented On 2 10:58AM By Catrachita Hickman ; [facility] [place] [facility] CoQ-10 10 MG Oral Capsule Provider: Diagnosis: Last Documented On 2 10:58AM By Catrachita Hickman ; [facility] Crestor 10 MG Oral Tablet Provider: Diagnosis: Last Documented On 2 10:58AM By Catrachita Hickman ; [facility] [place] [facility] Cyanocobalamin 5000 MCG Oral Tablet Disintegrating Provider: Diagnosis: Last Documented On 2 10:58AM By Catrachita Hickman ; [facility] Cymbalta 60 MG Oral Capsule Delayed Release Particles Provider: Diagnosis: Last Documented On 2 10:58AM By Catrachita Hickman ; [facility] Diclofenac Sodium 75 MG Oral Tablet Delayed Release Provider: Diagnosis: Last Documented On 2 10:59AM By Catrachita Hickman ; [facility] Docusil 100 MG Oral Capsule Provider: Diagnosis: Last Documented On 2 10:59AM By Catrachita Hickman ; [facility] Florastor 250 MG Oral Capsule Provider: Diagnosis: Last Documented On 2 10:59AM By Catrachita Hickman ; [facility] Fluticasone Propionate (Inha l) 50 MCG/BLIST Inhalation Aerosol Powder Breath Activated Provider: Diagnosis: Last Documented On 2 10:59AM By Catrachita Hickman ; [facility] Gabapentin 300 MG Oral Capsule Provider: Diagnosis: Last Documented On 2 10:59AM By Catrachita Hickman ; [facility] Keflex 500 MG Oral Capsule Provider: Diagnosis: Last Documented On 10:59AM By Catrachita Hickman ; [facility] Loratadine 10 MG Oral Capsule Provider: Diagnosis: Last Documented On 10:59AM By Catrachita Hickman ; [facility] New / Renewed during this visit Riaz Saenz MD on 11/20/2021 traMADol HCl 50 MG Oral Tablet Provider: Riaz amado MD 5 day supply: 90 tablet, 2 refills Diagnosis: 1 po q 6 to 8 hrs prn pain Pharmacy: [id number] - [address] [facility] [id number] - Last Documented On 2 11:46AM By Sam Saenz ; [facility] Current Medications (continue as prescribed) Cephalexin 125 MG/5ML Oral Suspension Reconstituted Provider: Diagnosis: Last Documented On 5 10:55AM By Raina Gonzales ; [facility] [place] [facility] Zyzal Oral Tablet 04/10/2024 Provider: Diagnosis: Last Documented On 5 10:54AM By Raina Gonzales ; [facility] Turmeric Curcumin 500 MG Oral Capsule 04/10/2024 Provider: Diagnosis: Last Documented On 5 10:56AM By Raina Gonzales ; [facility] Potassium Oral Tablet 04/10/2024 Provider: Diagnosis: Last Documented On 5 10:56AM By Raina Gonzales ; [facility] Crestor 10 MG Oral Tablet 04/10/2024 Provider: Diagnosis: Last Documented On 5 10:55AM By Raina Gonzales ; [facility] Cymbalta 20 MG Oral Capsule Delayed Release Particles 04/10/2024 Provider: Diagnosis: Last Documented On 5 10:55AM By Raina Gonzales ; [facility] HYDROcodone-Acetaminophen 7. 5-325 MG Oral Tablet 04/07/2024 Provider: Sonido Santacruz MD Diagnosis: Last Documented On 5 10:54AM By Raina Gonzales ; [facility] Lisinopril 5 MG Oral Tablet 04/06/2024 Provider: VERONICA SCHUSTER MD Diagnosis: Last Documented On 5 10:54AM By Raina Gonzales ; [facility] Doxycycline Monohydrate 100 MG Oral Capsule 03/28/2024 Provider: Diagnosis: Last Documented On 5 10:54AM By Raina Gonzales ; [facility] Potassium Chloride Fiona ER 2 0 MEQ Oral Tablet Extended Release 03/27/2024 Provider: Flavia Gomez APRN Diagnosis: Last Documented On 5 10:54AM By Raina Gonzales ; [facility] Diclofenac Sodium 75 MG Oral Tablet Delayed Release 03/12/2024 Provider: VERONICA SCHUSTER MD Diagnosis: Last Documented On 5 10:54AM By Raina Gonzales ; [facility] Furosemide 40 MG Oral Tablet 03/12/2024 Provider: VERONICA SCHUSTER MD Diagnosis: Last Documented On 5 10:54AM By Raina Gonzales ; [facility] Levocetirizine Dihydrochlori de 5 MG Oral Tablet 03/12/2024 Provider: VERONICA SCHUSTER MD Diagnosis: Last Documented On 5 10:54AM By Raina Gonzales ; [facility] Synthroid 100 MCG Oral Tablet 03/12/2024 Provider: VERONICA SCHUSTER MD Diagnosis: Last Documented On 5 10:54AM By Raina Gonzales ; [facility] Rosuvastatin Calcium 10 MG Oral Tablet 03/12/2024 Pr ovider: VERONICA SCHUSTER MD Diagnosis: Last Documented On 5 10:54AM By Raina Gonzales ; [facility] DULoxetine HCl 60 MG Oral Ca psule Delayed Release Particles 03/12/2024 Provider: VERONICA SCHUSTER MD Diagnosis: Last Documented On 5 10:54AM By Raina Gonzales ; [facility] HYDROcodone-Acetaminophen 7. 5-325 MG Oral Tablet 03/03/2024 Provider: Sonido Santacruz MD Diagnosis: Last Documented On 5 10:54AM By Raina Gonzales ; [facility] Caltrate 600 1500 (600 Ca) MG Oral Tablet 11/27/2022 Provider: Diagnosis: Last Documented On 3 11:00AM By Sam Saenz ; [facility] B Complex-B12 Oral Tablet 11/27/2022 Provider: Diagnosis: Last Documented On 3 10:59AM By Sam Saenz ; [facility] HYDROcodone-Acetaminophen 7. 5-325 MG Oral Tablet 11/18/2022 Provider: Sonido Santacruz MD Diagnosis: Last Documented On 3 10:57AM By Sam Saenz ; [facility] Daily Multivitamin Oral Capsule 11/20/2021 Provider: Diagnosis: Last Documented On 2 11:05AM By Catrachita Hickman ; [facility] MiraLax 17 GM Oral Packet 11/20/2021 Provider: Diagnosis: Last Documented On 2 11:04AM By Catrachita Hickman ; [facility] Voltaren 1% External Gel 11/20/2021 Provider: Diagnosis: Last Documented On 2 11:04AM By Catrachita Hickman ; [facility] QC Tumeric Complex 500 MG Oral Capsule 11/20/2021 Pr ovider: Diagnosis: Last Documented On 2 11:03AM By Catrachita Hickman ; [facility] Cymbalta 20 MG Oral Capsule Delayed Release Particles 11/20/2021 Provider: Diagnosis: Last Documented On 2 11:02AM By Catrachita Hickman ; [facility] Crestor 10 MG Oral Tablet 11/20/2021 Provider: Diagnosis: Last Documented On 2 11:02AM By Catrachita Hickman ; [facility] Adult Aspirin Regimen 81 MG Oral Tablet Delayed Releas e 11/20/2021 Provider: Diagnosis: Last Documented On 2 11:02AM By Catrachita Hickman ; [facility] Magnesium 250 MG Oral Tablet 11/20/2021 Provider : Diagnosis: Last Documented On 11:03AM By Catrachita Hickman ; [facility] Vitamin D3 1.25 MG (10466 UT) Oral Capsule 11/20/2021 Provider: Diagnosis: Last Documented On 11:03AM By Catrachita Hickman ; [facility] CoQ-10 100 MG Oral Capsule 11/20/2021 Provider: Diagnosis: Last Documented On 11:03AM By Catrachita Hickman ; [facility] Xyzal Allergy 24HR 5 MG Oral Tablet 11/20/2021 Provi ofelia: Diagnosis: Last Documented On 11:01AM By Catrachita Hickman ; [facility] Synthroid 100 MCG Oral Tablet 11/20/2021 Provider: Diagnosis: Last Documented On 11:01AM By Catrachita Hickman ; [facility] Doxycycline Hyclate 100 MG Oral Capsule 11/17/2021 P rovider: Diagnosis: Last Documented On 2 11:02AM By Catrachita Hickman ; [facility] Diclofenac Sodium 75 MG Oral Tablet Delayed Release 10/17/2021 Provider: VERONICA SCHUSTER MD Diagnosis: Last Documented On 11:02AM By Catrachita Hickman ; [facility] Cephalexin 500 MG Oral Capsule 10/14/2021 Provider: Diagnosis: Last Documented On 11:02AM By Catrachita Hickman ; [facility] Potassium Chloride Fiona ER 2 0 MEQ Oral Tablet Extended Release 09/24/2021 Provider: VERONICA SCHUSTER MD Diagnosis: Last Documented On 2 11:02AM By Catrachita Hickman ; [facility] Furosemide 40 MG Oral Tablet 07/14/2021 Provider: Kaycee Robin MD Diagnosis: Last Documented On 2 11:02AM By Catrachita Hickman ; [facility] Lisinopril 5 MG Oral Tablet 06/20/2021 Provider: Kaycee Robin MD Diagnosis: Last Documented On 2 11:00AM By Catrachita Hickman ; [facility] Past Medications on file Neurontin 300 MG Oral Capsule 08/27/2020 - 11/25/2020 Provider: Riaz valentine MD Diagnosis: 1 every bedtime Last Documented On 1 1:34PM By Sam Saenz ; [facility] Ultram 50 MG Oral Tablet 08/27/2020 - 09/01/2020 Provider: Riaz valentine MD Diagnosis: 1-2 po q6h prn pain Last Documented On 1 1:34PM By Sam Saenz ; [facility] oxyCODONE HCl 10 MG Oral Tablet 08/27/2020 - 09/06/2020 Provider: Riaz valentine MD Diagnosis: 1-2 po q 4-6h Last Documented On 1 1:34PM By Sam Saenz ; [facility] Acetaminophen 500 MG Oral Tablet 08/22/2020 - 09/21/2020 Provider: Riaz Saenz MD Diagnosis: 2 three times a day DNF UNTIL SX 08/20/20 Last Documented On 1 9:48AM By Sam Saenz ; [facility] Ultram 50 MG Oral Tablet 08/22/2020 - 08/27/2020 Provider: Riaz valentine MD Diagnosis: 1-2 po q6h prn pain Last Documented On 1 9:53AM By Sam Saenz ; [facility] oxyCODONE HCl 10 MG Oral Tablet 08/22/2020 - 09/01/2020 Provider: Riaz valentine MD Diagnosis: 1-2 po q 4-6h Last Documented On 1 9:53AM By Sam Saenz ; [facility] Neurontin 300 MG Oral Capsule 08/22/2020 - 11/20/2020 Provider: Riaz valentine MD Diagnosis: 1 every bedtime Last Documented On 1 9:53AM By Sam Saenz ; [facility] Colace 100 MG Oral Capsule 08/22/2020 - 11/20/2020 Provider: Riaz valentine MD Diagnosis: 1-2 tabs daily DNF UNTIL SX 08/20/20 Last Documented On 1 9:49AM By Sam Saenz ; [facility] Ultram 50 MG Oral Tablet 08/14/2020 - 08/19/2020 Provider: Riaz valentine MD Diagnosis: 1-2 po q6h prn pain DNF UNTIL SX 08/20/20 Last Documented On 1 2:19PM By Sam Saenz ; [facility] oxyCODONE HCl 5 MG Oral Tablet 08/14/2020 - 08/19/2020 Provider: Riaz valentine MD Diagnosis: 1-2 po q 4-6h DNF UNTIL SX 08/20/20 Last Documented On 1 2:03PM By Sam Saenz ; [facility] Neurontin 300 MG Oral Capsule 08/14/2020 - 11/12/2020 Provider: Riaz valentine MD Diagnosis: 1 every bedtime DNF UNTIL SX 08/20/20 Last Documented On 1 2:03PM By Sam Saenz ; [facility] Ultram 50 MG Oral Tablet [...] On 0 3:34PM By Silva Sheridan ; [facility] [...] On 9 8:57AM By Lorena Mijares ; [facility] Acetaminophen 500MG Oral Tablet 08/17/2018 - 09/16/2018 Provider: Riaz Saenz MD Diagnosis: 2 three times a day FOR RODRIGUEZ RGERY DO NOT FILL UNTIL 08/22/18 Last Documented On 9 8:56AM By Lorena Mijares ; [facility] traMADol HCl 50MG Oral Tablet 08/17/2018 - 08/22/2018 Provider: Riaz valentine MD Diagnosis: 1-2 po q6h prn pain FOR RODRIGUEZ RGERY DO NOT FILL UNTIL 08/22/18 Last Documented On 9 8:57AM By Lorena Mijares ; [facility] oxyCODONE HCl 5MG Oral Tablet 08/17/2018 - 08/22/2018 Provider: Riaz valentine MD Diagnosis: 1-2 po q6h prn pain FOR RODRIGUEZ RGERY DO NOT FILL UNTIL 08/22/18 Last Documented On 9 8:57AM By Lorena Mijraes ; [facility] Neurontin 300MG Oral Capsule 08/17/2018 - 11/15/2018 Provider: Riaz valentine MD Diagnosis: 1 every bedtime FOR SURGER Y DO NOT FILL UNTIL 08/22/18 Last Documented On 9 8:57AM By Lorena Mijares ; [facility] Dilaudid 2MG Oral Tablet 08/17/2018 - 08/19/2018 Provi ofelia: Riaz Saenz MD Diagnosis: 1-2 po q6h prn pain (RESCUE PAIN)FOR SURGERY DO NOT FILL UNTIL 08/22/18 Last Documented On 9 8:57AM By Lorena Mijares ; [facility] Mupirocin 2% External Ointment 07/22/2018 - 07/27/2018 Provider: Riaz valentine MD Diagnosis: Apply to nostrils 3 times a day 5 days prior to surgery. Last Documented On 9 1:17PM By Silva Sheridan ; [facility] OxyCODONE HCl 5MG Oral Tablet 11/13/2016 - 12/13/2016 Provider: Stan Romero MD Diagnosis: 1-2 po q 4-6h, post op Last Documented On 7 9:34AM By Maira Booker ; [facility] OxyCODONE HCl 5 MG Tablet 10/19/2016 - 10/29/2016 Prov ider: Riaz Saenz MD Diagnosis: 1-2 po q 4-6h FOR SURGERY Last Documented On 7 11:41AM By Sravanthi Eliznodo ; [facility] Neurontin 300 MG Capsule 10/19/2016 - 01/17/2017 Provi ofelia: Riaz Saenz MD Diagnosis: 1 every bedtime FOR SURGERY Last Documented On 7 11:41AM By Sravanthi Elizondo ; [facility] Mobic 15 MG Tablet 10/19/2016 - 11/18/2016 Provider: Riaz Saenz MD Diagnosis: once a day FOR SURGERYDO N OT FILL TILL 10/26/16 Last Documented On 7 11:51AM By Sravanthi Elizondo ; [facility] Colace 100 MG Capsule 10/19/2016 - 01/17/2017 Provider : Riaz Saenz MD Diagnosis: 1-2 tabs daily FOR SURGERY * *DO NOT FILL TILL 10/26/16 Last Documented On 7 11:51AM By Sravanthi Elizondo ; [facility] Acetaminophen 500 MG Tablet 10/19/2016 - 10/27/2016 Pr ovider: Riaz Saenz MD Diagnosis: 2 three times a day FOR SURG ANITHADO NOT FILL TILL 10/26/16 Last Documented On 7 11:51AM By Sravanthi Elizondo ; [facility] TraMADol HCl 50 MG Tablet 10/19/2016 - 11/01/2016 Provider: Riaz valentine MD Diagnosis: 2 tablets every 6 hours FOR SURGERY Last Documented On 7 11:42AM By Sravanthi Elizondo ; [facility] Medications Administered Includes: Administered Medications from this encounter No Administered Medications Recorded Vital Signs Includes: Vital Signs from this encounter Vital Name 11/20/2021 11:05A Blood Pressure Sitting (mmHg) 147/81 Pulse Rate-Sitting (bpm) 82 Height (in) 60 Weight (lb) 210 Body Mass Index (kg/m2) 41.0 Body Surface Area (m2) 1.9 Note: sjs Last Documented: On 11/20/2021 11:05A M ; [facility] Results Includes: Results discussed during this encounter No Results Recorded For Specified Dates History of Present Illness Includes: History of Present Illness from this encounter HPI yS Barlow is a 81 year old female. - Allergy list reviewed - Problem list reviewed - Medication reconciliation performed - Medication list reviewed - Medication list reviewed with patient - Pain is occasional (25% of the time) - Yes, previous treatment. - History of Physical Therapy Social History Description Last Updated Not exercising regularly 11/27/2022 Last Documented On 11:05AM ; [facility] Tobacco non-user 11/20/2021 Last Documented On 2 12:39PM ; [facility] No recent change in diet 06/19/2021 Last Documented On 2 11:05AM ; [facility] Not a current smoker. 06/19/2021 Last Documented On 2 11:05AM ; [facility] Not a current smoker. 05/02/2020 Last Documented On 2 11:05AM ; [facility] Non-smoker 02/01/2020 Last Documented On 2 11:05AM ; [facility] Caffeine use 07/23/2016 Last Documented On 2 11:05AM ; [facility] No recent change in diet 07/23/2016 Last Documented On 2 11:05AM ; [facility] Not a current smoker 07/23/2016 Last Documented On 2 11:05AM ; [facility] Not using alcohol 07/23/2016 Last Documented On 2 11:05AM ; [facility] Not using drugs 07/23/2016 Last Documented On 2 11:05AM ; [facility] No tobacco use 07/23/2016 Last Documented On 2 11:05AM ; [facility] Smoking status : Never smoker 07/23/2016 Last Documented On 2 11:05AM ; [facility] Procedures and Surgical History Includes: Procedures from this encounter Procedures Code Diagnosis Performing Provider Service L ocation Service Date history of orthopedic options: physical therapy Last Documented On 2 11:05AM ; [facility] use of tobacco assessment performed 1000F Last Documented On 2 11:05AM ; [facility] patient screened for future fall risk: documentation of any fall with injury in past year 1100F Last Documented On 2 11:06AM ; [facility] follow-up visit in one month Last Documented On 2 11:06AM ; [facility] referral to physician Last Documented On 2 11:06AM ; [facility] Pt received screening for fall risk G8270 Last Documented On 2 11:05AM ; [facility] Clinical summary provided to patient Last Documented On 2 11:05AM ; [facility] Surgical History Last Updated History of shoulder arthroplasty 017 Last Documented On 2 11:05AM ; [facility] History of total knee arthroplasty 07/23 Last Documented On 2 11:05AM ; [facility] Medical History Includes: Medical History addressed during this encounter Description Last Updated Anemia 05/02/2020 Last Documented On 2 11:05AM ; [facility] Arthritis 05/02/2020 Last Documented On 2 11:05AM ; [facility] Heartburn / Acid Reflux 05/02/2020 Last Documented On 2 11:05AM ; [facility] History of Blood Transfusion 05/02/2020 Last Documented On 2 11:05AM ; [facility] Hypertension 05/02/2020 Last Documented On 2 11:05AM ; [facility] Irregular Heartbeat 05/02/2020 Last Documented On 2 11:05AM ; [facility] Recent immunization for flu 05/02/2020 Last Documented On 2 11:05AM ; [facility] Sleep Apnea 05/02/2020 Last Documented On 2 11:05AM ; [facility] Use of CPAP 05/02/2020 Last Documented On 2 11:05AM ; [facility] high cholesterol, acid reflu x, irregular heartbeat, blood transfusion, cataracs, anemia 08/17/2019 Last Documented On 2 11:05AM ; [facility] History of asthma 06/09/2018 Last Documented On 2 11:05AM ; [facility] A previous fracture 07/23/2016 Last Documented On 2 11:05AM ; [facility] A recent immunization for pneumococcal p neumonia 07/23/2016 Last Documented On 2 11:05AM ; [facility] Arthritic joint problems 07/23/2016 Last Documented On 2 11:05AM ; [facility] History of osteoporosis 07/23/2016 Last Documented On 2 11:05AM ; [facility] Intermittent hypertension 07/23/2016 Last Documented On 2 11:05AM ; [facility] Thyroid disease 07/23/2016 Last Documented On 2 11:05AM ; [facility], [facility] A recent injection 07/23/2016 Last Documented On 2 11:05AM ; [facility] Family History Includes: Family History addressed during this encounter Description Last Updated Family history of hypertension 0 Last Documented On 2 11:05AM ; [facility] Family history of osteoporosis 0 Last Documented On 2 11:05AM ; [facility] Family history of cancer 06/09/2018 Last Documented On 2 11:05AM ; [facility] Stroke/seizure 12/17/2016 Last Documented On 2 11:05AM ; [facility] Stroke/seizure: maternal history 017 Last Documented On 2 11:05AM ; [facility] Maternal history of hypertension 017 Last Documented On 2 11:05AM ; [facility] Maternal history of osteoporosis 017 Last Documented On 2 11:05AM ; [facility] Paternal history of family history of ca ncer 07/23/2016 Last Documented On 2 11:05AM ; [facility] Review of Systems Includes: Review of [...] Active Last Documented On 5 10:57AM ; [facility] Naproxen Allergy 06/09/2018 Active Last Documented On 5 10:57AM ; [facility] Mobic Allergy 06/09/2018 Active Last Documented On 5 10:57AM ; [facility] Encounters Encounter Provider Location Date Check-In Time Check-Out Time Diagnosis Follow Up Riaz Saenz MD [facility] 11/21/19 22 9:50AM 11:42AM Insurance Includes: Active Insurance Policies Plan Name Member ID Group # Subscriber Relationship Effect ivan Dates 1 - [facility] /MEDICARE [id number] Sy Barlow Self 03/01/2016 - Unknown Clinical Notes Includes: Clinical Notes from this encounter No Clinical Notes Recorded
--- OUTSIDE RECORDS SUMMARY | 2024-06-08 21:16 | XMS_ITS ---
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 Name Role Phone LANDEN CORADO, VERONICA Unavailable [phone] Dany CORADO, Riaz Watkins Unavailable [phone] Flavia Gomez APRN Primary Care Provid er Unavailable Reason for Referral Date Encounter Description Provider Reason for Referral 11/20/21 Follow Up Riaz valentine MD Referral To Physician 09/09/20 Post Op Riaz valentine MD Referral To Physician - See Pcp for bp 08/09/20 IN HOUSE REFERRAL Fan Moise MD Referral To Physician - See Pcp for bp 07/25/20 Follow Up Riaz valentine MD Referral To Physician - See Pcp for bp 07/18/20 Follow Up Riaz valentine MD Referral To Physician - See Pcp for bp 05/02/20 Follow Up Riaz valentine MD Referral To Physician - See Pcp for bp 02/01/20 Follow Up Riaz valentine MD Referral To Physician - See Pcp for bp Problems Includes: Active, inactive, and resolved Problems All Visits Onset Date Resolved Date Provider Condition S tatus Joint Pain, Localized in the Left Shoulder 04/10/2024 Yusef Doshi PA-C Active Last Documented On 5 10:53AM ; [facility] Joint Pain in the Left Hip 11/26/2022 Riaz Saenz MD Active Last Documented On 3 12:19PM ; [facility] History of Joint Pain in the Left Knee 11/14/2020 Riaz Saenz MD Ac tive Last Documented On 1 1:02PM ; [facility] Joint Pain, Localized in the Shoulder 06/29/2018 Steven Saavedra MD Active Last Documented On 9 1:58PM ; [facility] Joint Pain in the Left Knee 07/23/2016 Patrice Saenz MD Active Last Documented On 7 1:23PM ; [facility] Plan of Treatment Findings Encounter Date Patient screened for future fall risk: documentation of any fall with injury in past year Physician Specified with Yusef Doshi PA-C 04/10/2024 Last Documented On 5 11:39AM ; [facility] Pending Tests Order Diagnosis Results Due Ordering P rovider Lab Orders CRP 07/23/16 Riaz Saenz MD Last Documented On 7 10:35AM ; [facility] Lab Orders ESR 07/23/16 Riaz Saenz MD Last Documented On 7 10:35AM ; [facility] Lab Orders - CC Aspirations Aerobic/Anaerobic Culture 11/09/16 Michael Saenz MD Last Documented On 7 9:01AM ; [facility] Lab Orders - CC Aspirations Cell Count with DIFF 11/09/16 Riaz Saenz MD Last Documented On 7 9:01AM ; [facility] Referrals To Diagnosis Consult for Pain Management Last Documented On 1 10:47AM ; [facility] Consult with Orthopedic Last Documented On 1 10:53AM ; [facility] Consult for Pain Management Last Documented On 2 12:39PM ; [facility] Future Appointments Date Time Location Provi ofelia Follow Up 07/10/2024 11:00AM [facility] paedics [facility] Yusef Doshi PA-C Last Documented On 5 11:44AM ; [facility] Follow Up 11/30/2024 11:30AM [facility] Riaz Saenz MD Last Documented On 5 2:30PM ; [facility] Instructions to patient Lose weight Last Documented On 5 11:06AM ; [facility] Lose weight Last Documented On 3 11:41AM ; [facility] Lose weight Last Documented On 2 11:06AM ; [facility] Instructions for patient to see pcp for wt Last Documented On 2 8:22AM ; [facility] Lose weight Last Documented On 2 8:22AM ; [facility] Instructions for patient to see pcp for wt Last Documented On 1 11:29AM ; [facility] Lose weight Last Documented On 1 11:29AM ; [facility] Instructions for patient to see pcp for wt Last Documented On 1 1:23PM ; [facility] Lose weight Last Documented On 1 1:23PM ; [facility] Instructions for patient to see pcp for wt Last Documented On 1 1:02PM ; [facility] Lose weight Last Documented On 1 1:02PM ; [facility] Instructions for patient to see pcp for wt Last Documented On 1 10:34AM ; [facility] Lose weight Last Documented On 1 10:34AM ; [facility] Instructions for patient to see pcp for wt Last Documented On 1 10:05AM ; [facility] Lose weight Last Documented On 1 10:05AM ; [facility] Instructions for patient to see pcp for wt Last Documented On 1 2:16PM ; [facility] Lose weight Last Documented On 1 2:16PM ; [facility] Instructions for patient to see pcp for wt Last Documented On 1 4:28PM ; [facility] Lose weight Last Documented On 1 4:28PM ; [facility] Instructions for patient to see pcp for wt Last Documented On 1 8:02AM ; [facility] Lose weight Last Documented On 1 8:02AM ; [facility] Instructions for patient to see pcp for wt Last Documented On 1 12:25PM ; [facility] Lose weight Last Documented On 1 12:25PM ; [facility] Instructions for patient to see pcp for wt Last Documented On 0 3:16PM ; [facility] Lose weight Last Documented On 0 3:16PM ; [facility] Instructions for patient to see pcp for wt Last Documented On 0 2:36PM ; [facility] Lose weight Last Documented On 0 2:36PM ; [facility] Instructions for patient to see pcp for wt Last Documented On 0 2:39PM ; [facility] Lose weight Last Documented On 0 2:39PM ; [facility] Instructions for patient to see pcp for wt Last Documented On 0 1:23PM ; [facility] Lose weight Last Documented On 0 1:23PM ; [facility] Instructions for patient to see pcp for wt Last Documented On 0 1:55PM ; [facility] Lose weight Last Documented On 0 1:55PM ; [facility] Instructions for patient to see pcp for wt Last Documented On 9 2:39PM ; [facility] Lose weight Last Documented On 9 2:39PM ; [facility] Instructions for patient to see pcp for wt Last Documented On 9 11:12AM ; [facility] Lose weight Last Documented On 9 11:11AM ; [facility] Instructions for patient Last Documented On 9 9:08AM ; [facility] Lose weight Last Documented On 9 8:45AM ; [facility] Lose weight Last Documented On 9 9:24AM ; [facility] Instructions for patient see pcp for bp Last Documented On 9 1:58PM ; [facility] Lose weight Last Documented On 9 1:58PM ; [facility] Lose weight Last Documented On 9 10:13AM ; [facility] Instructions for patient SEE PCP FOR BP AND WEIGHT Last Documented On 8 9:54AM ; [facility] Lose weight Last Documented On 8 9:54AM ; [facility] Instructions for patient SEE PCP FOR BP AND WEIGHT Last Documented On 7 10:40AM ; [facility] Lose weight Last Documented On 7 10:40AM ; [facility] Instructions for patient SEE PCP FOR BP AND WEIGHT Last Documented On 7 9:43AM ; [facility] Lose weight Last Documented On 7 9:43AM ; [facility] Instructions for patient SEE PCP FOR BP AND WEIGHT Last Documented On 7 1:40PM ; [facility] Lose weight Last Documented On 7 1:39PM ; [facility] Instructions for patient See PCP for weight Last Documented On 7 12:59PM ; [facility] Lose weight Last Documented On 7 12:55PM ; [facility] Instructions for patient See PCP for weight and BP Last Documented On 7 8:43AM ; [facility] Lose weight Last Documented On 7 8:42AM ; [facility] Instructions for patient SEE PCP FOR WEIGHT MANAGEMENT AND ELEVATED BP Last Documented On 7 8:21AM ; [facility] Lose weight Last Documented On 7 8:21AM ; [facility] Instructions for patient SEE PCP FOR WEIGHT MANAGEMENT AND ELEVATED BP Last Documented On 7 11:30AM ; [facility] Lose weight Last Documented On 7 11:31AM ; [facility] Instructions for patient SEE PCP FOR WEIGHT MANAGEMENT AND ELEVATED BP Last Documented On 7 1:25PM ; [facility] Assessments Includes: Assessments for all patient encounters Findings Encounter Date Overweight Physician Specified with Yusef Doshi PA-C 04/10/2024 Last Documented On 5 11:39AM ; [facility] Overweight Follow Up with Riaz espinoza MD 11/26/2022 Last Documented On 4 2:50PM ; [facility] Instructions Includes: Instructions for all patient encounters Instructions to patient Lose weight Last Documented On 5 11:06AM ; [facility] Lose weight Last Documented On 3 11:41AM ; [facility] Lose weight Last Documented On 2 11:06AM ; [facility] Instructions for patient to see pcp for wt Last Documented On 2 8:22AM ; [facility] Lose weight Last Documented On 2 8:22AM ; [facility] Instructions for patient to see pcp for wt Last Documented On 1 11:29AM ; [facility] Lose weight Last Documented On 1 11:29AM ; [facility] Instructions for patient to see pcp for wt Last Documented On 1 1:23PM ; [facility] Lose weight Last Documented On 1 1:23PM ; [facility] Instructions for patient to see pcp for wt Last Documented On 1 1:02PM ; [facility] Lose weight Last Documented On 1 1:02PM ; [facility] Instructions for patient to see pcp for wt Last Documented On 1 10:34AM ; [facility] Lose weight Last Documented On 1 10:34AM ; [facility] Instructions for patient to see pcp for wt Last Documented On 1 10:05AM ; [facility] Lose weight Last Documented On 1 10:05AM ; [facility] Instructions for patient to see pcp for wt Last Documented On 1 2:16PM ; [facility] Lose weight Last Documented On 1 2:16PM ; [facility] Instructions for patient to see pcp for wt Last Documented On 1 4:28PM ; [facility] Lose weight Last Documented On 1 4:28PM ; [facility] Instructions for patient to see pcp for wt Last Documented On 1 8:02AM ; [facility] Lose weight Last Documented On 1 8:02AM ; [facility] Instructions for patient to see pcp for wt Last Documented On 1 12:25PM ; [facility] Lose weight Last Documented On 1 12:25PM ; [facility] Instructions for patient to see pcp for wt Last Documented On 0 3:16PM ; [facility] Lose weight Last Documented On 0 3:16PM ; [facility] Instructions for patient to see pcp for wt Last Documented On 0 2:36PM ; [facility] Lose weight Last Documented On 0 2:36PM ; [facility] Instructions for patient to see pcp for wt Last Documented On 0 2:39PM ; [facility] Lose weight Last Documented On 0 2:39PM ; [facility] Instructions for patient to see pcp for wt Last Documented On 0 1:23PM ; [facility] Lose weight Last Documented On 0 1:23PM ; [facility] Instructions for patient to see pcp for wt Last Documented On 0 1:55PM ; [facility] Lose weight Last Documented On 0 1:55PM ; [facility] Instructions for patient to see pcp for wt Last Documented On 9 2:39PM ; [facility] Lose weight Last Documented On 9 2:39PM ; [facility] Instructions for patient to see pcp for wt Last Documented On 9 11:12AM ; [facility] Lose weight Last Documented On 9 11:11AM ; [facility] Instructions for patient Last Documented On 9 9:08AM ; [facility] Lose weight Last Documented On 9 8:45AM ; [facility] Lose weight Last Documented On 9 9:24AM ; [facility] Instructions for patient see pcp for bp Last Documented On 9 1:58PM ; [facility] Lose weight Last Documented On 9 1:58PM ; [facility] Lose weight Last Documented On 9 10:13AM ; [facility] Instructions for patient SEE PCP FOR BP AND WEIGHT Last Documented On 8 9:54AM ; [facility] Lose weight Last Documented On 8 9:54AM ; [facility] Instructions for patient SEE PCP FOR BP AND WEIGHT Last Documented On 7 10:40AM ; [facility] Lose weight Last Documented On 7 10:40AM ; [facility] Instructions for patient SEE PCP FOR BP AND WEIGHT Last Documented On 7 9:43AM ; [facility] Lose weight Last Documented On 7 9:43AM ; [facility] Instructions for patient SEE PCP FOR BP AND WEIGHT Last Documented On 7 1:40PM ; [facility] Lose weight Last Documented On 7 1:39PM ; [facility] Instructions for patient See PCP for weight Last Documented On 7 12:59PM ; [facility] Lose weight Last Documented On 7 12:55PM ; [facility] Instructions for patient See PCP for weight and BP Last Documented On 7 8:43AM ; [facility] Lose weight Last Documented On 7 8:42AM ; [facility] Instructions for patient SEE PCP FOR WEIGHT MANAGEMENT AND ELEVATED BP Last Documented On 7 8:21AM ; [facility] Lose weight Last Documented On 7 8:21AM ; [facility] Instructions for patient SEE PCP FOR WEIGHT MANAGEMENT AND ELEVATED BP Last Documented On 7 11:30AM ; [facility] Lose weight Last Documented On 7 11:31AM ; [facility] Instructions for patient SEE PCP FOR WEIGHT MANAGEMENT AND ELEVATED BP Last Documented On 7 1:25PM ; [facility] Medical Equipment - Implanted Devices Includes: Current and historical Devices No Medical Equipment Recorded Medications Includes: Current and historical Medications Current Medications (continue as prescribed) Cephalexin 125 MG/5ML Oral Suspension Reconstituted Provider: Diagnosis: Last Documented On 5 10:55AM By Raina Gonzales ; [facility] Zyzal Oral Tablet 04/10/2024 Provider: Diagnosis: Last Documented On 5 10:54AM By Raina Gonzales ; [facility] Turmeric Curcumin 500 MG Oral Capsule 04/10/2024 Provider: Diagnosis: Last Documented On 5 10:56AM By Raina Wilde [facility] Potassium Oral Tablet 04/10/2024 Provider: Diagnosis: Last Documented On 5 10:56AM By Raina Wilde [facility] Crestor 10 MG Oral Tablet 04/10/2024 Provider: Diagnosis: Last Documented On 5 10:55AM By Raina Gonzales ; [facility] Cymbalta 20 MG Oral Capsule Delayed Release Particles 04/10/2024 Provider: Diagnosis: Last Documented On 5 10:55AM By Raina Gonzales ; [facility] HYDROcodone-Acetaminophen 7. 5-325 MG Oral Tablet 04/07/2024 Provider: Sonido Seo MD Diagnosis: Last Documented On 5 10:54AM By Raina Gonzales ; [facility] Lisinopril 5 MG Oral Tablet 04/06/2024 Provider: VERONICA SCHUSTER MD Diagnosis: Last Documented On 5 10:54AM By Raina Gonzales ; [facility] Doxycycline Monohydrate 100 MG Oral Capsule 03/28/2024 Provider: Diagnosis: Last Documented On 5 10:54AM By Raina Gonzales ; [facility] Potassium Chloride Fiona ER 2 0 MEQ Oral Tablet Extended Release 03/27/2024 Provider: Flavia Gomez APRN Diagnosis: Last Documented On 5 10:54AM By Raina Gonzales ; [facility] Diclofenac Sodium 75 MG Oral Tablet Delayed Release 03/12/2024 Provider: VERONICA SCHUSTER MD Diagnosis: Last Documented On 5 10:54AM By Raina Gonzales ; [facility] Furosemide 40 MG Oral Tablet 03/12/2024 Provider: VERONICA SCHUSTER MD Diagnosis: Last Documented On 5 10:54AM By Raina Gonzales ; [facility] Levocetirizine Dihydrochlori de 5 MG Oral Tablet 03/12/2024 Provider: VERONICA SCHUSTER MD Diagnosis: Last Documented On 5 10:54AM By Raina Gonzales ; [facility] Synthroid 100 MCG Oral Tablet 03/12/2024 Provider: VERONICA SCHUSTER MD Diagnosis: Last Documented On 5 10:54AM By Raina Gonzales ; [facility] Rosuvastatin Calcium 10 MG Oral Tablet 03/12/2024 Pr ovider: VERONICA SCHUSTER MD Diagnosis: Last Documented On 5 10:54AM By Raina Gonzales ; [facility] DULoxetine HCl 60 MG Oral Ca psule Delayed Release Particles 03/12/2024 Provider: VERONICA SCHUSTER MD Diagnosis: Last Documented On 5 10:54AM By Raina Gonzales ; [facility] HYDROcodone-Acetaminophen 7. 5-325 MG Oral Tablet 03/03/2024 Provider: Sonido Seo MD Diagnosis: Last Documented On 5 10:54AM By Raina Gonzales ; [facility] Caltrate 600 1500 (600 Ca) MG Oral Tablet 11/27/2022 Provider: Diagnosis: Last Documented On 3 11:00AM By Sam Saenz ; [facility] B Complex-B12 Oral Tablet 11/27/2022 Provider: Diagnosis: Last Documented On 3 10:59AM By Sam Saenz ; [facility] HYDROcodone-Acetaminophen 7. 5-325 MG Oral Tablet 11/18/2022 Provider: Sonido Seo MD Diagnosis: Last Documented On 3 10:57AM By Sam Saenz ; [facility] Daily Multivitamin Oral Capsule 11/20/2021 Provider: Diagnosis: Last Documented On 2 11:05AM By Catrachita Hickman ; [facility] MiraLax 17 GM Oral Packet 11/20/2021 Provider: Diagnosis: Last Documented On 2 11:04AM By Catrachita Hickman ; [facility] Voltaren 1% External Gel 11/20/2021 Provider: Diagnosis: Last Documented On 11:04AM By Catrachita Hickman ; [facility] QC Tumeric Complex 500 MG Oral Capsule 11/20/2021 Pr ovider: Diagnosis: Last Documented On 11:03AM By Catrachita Hickman ; [facility] Cymbalta 20 MG Oral Capsule Delayed Release Particles 11/20/2021 Provider: Diagnosis: Last Documented On 2 11:02AM By Catrachita Hickman ; [facility] Crestor 10 MG Oral Tablet 11/20/2021 Provider: Diagnosis: Last Documented On 2 11:02AM By Catrachita Hickman ; [facility] Adult Aspirin Regimen 81 MG Oral Tablet Delayed Releas e 11/20/2021 Provider: Diagnosis: Last Documented On 2 11:02AM By Catrachita Hickman ; [facility] Magnesium 250 MG Oral Tablet 11/20/2021 Provider : Diagnosis: Last Documented On 2 11:03AM By Catrachita Hickman ; [facility] Vitamin D3 1.25 MG (01405 UT) Oral Capsule 11/20/2021 Provider: Diagnosis: Last Documented On 2 11:03AM By Catrachita Hickman ; [facility] CoQ-10 100 MG Oral Capsule 11/20/2021 Provider: Diagnosis: Last Documented On 11:03AM By Catrachita iHckman ; [facility] Xyzal Allergy 24HR 5 MG Oral Tablet 11/20/2021 Provi ofelia: Diagnosis: Last Documented On 2 11:01AM By Catrachita Hickman ; [facility] Synthroid 100 MCG Oral Tablet 11/20/2021 Provider: Diagnosis: Last Documented On 2 11:01AM By Catrachita Hickman ; [facility] Doxycycline Hyclate 100 MG Oral Capsule 11/17/2021 P rovider: Diagnosis: Last Documented On 2 11:02AM By Catrachita Hickman ; [facility] Diclofenac Sodium 75 MG Oral Tablet Delayed Release 10/17/2021 Provider: VERONICA SCHUSTER MD Diagnosis: Last Documented On 2 11:02AM By Catrachita Hickman ; [facility] Cephalexin 500 MG Oral Capsule 10/14/2021 Provider: Diagnosis: Last Documented On 11:02AM By Catrachita Hickman ; [facility] Potassium Chloride Fiona ER 2 0 MEQ Oral Tablet Extended Release 09/24/2021 Provider: VERONICA SCHUSTER MD Diagnosis: Last Documented On 2 11:02AM By Catrachita Hickman ; [facility] Furosemide 40 MG Oral Tablet 07/14/2021 Provider: Kaycee Robin MD Diagnosis: Last Documented On 2 11:02AM By Catrachita Hcikman ; [facility] Lisinopril 5 MG Oral Tablet 06/20/2021 Provider: Kaycee Robin MD Diagnosis: Last Documented On 2 11:00AM By Catrachita Hickman ; [facility] Past Medications on file traMADol HCl 50 MG Oral Tablet 11/20/2021 - 12/05/2021 Provider: Riaz valentine MD Diagnosis: 1 po q 6 to 8 hrs prn pain Last Documented On 2 11:46AM By Sam Saenz ; [facility] traMADol HCl 100 MG Oral Tablet 11/20/2021 - Provider: Diagnosis: Last Documented On 3 10:56AM By Sam Saenz ; [facility] Cephalexin 500 MG Oral Capsule 11/17/2021 - 11/27/2022 Provider: Diagnosis: Last Documented On 3 10:55AM By Sam Saenz ; [facility] Advair HFA 115-21 MCG/ACT Inhalation Aerosol 1 - 11/20/2021 Provider: Diagnosis: Last Documented On 2 10:58AM By Catrachita Hickman ; [facility] methylPREDNISolone 4 MG Oral Tablet Therapy Pack 01/27/2021 - 11/20/2021 Provider: Diagnosis: Last Documented On 2 10:58AM By Catrachita Hickman ; [facility] Hydrocortisone 1% External Cream 01/25/2021 - 11/21/19 Provider: Diagnosis: Last Documented On 2 10:58AM By Catrachita Hickman ; [facility] Levothyroxine Sodium 100 MCG Oral Tablet 01/24/2021 - 11/20/2021 Provider: Diagnosis: Last Documented On 2 10:58AM By Catrachita Hickman ; [facility] Neurontin 300 MG Oral Capsule 08/27/2020 - 11/25/2020 Provider: Riaz valentine MD Diagnosis: 1 every bedtime Last Documented On 1 1:34PM By Sam Saenz ; [facility] Ultram 50 MG Oral Tablet 08/27/2020 - 09/01/2020 Provider: Riaz valentine MD Diagnosis: 1-2 po q6h prn pain Last Documented On 1 1:34PM By Sam Saenz ; [facility] oxyCODONE HCl 10 MG Oral Tablet 08/27/2020 - 09/06/2020 Provider: Riaz valentine MD Diagnosis: 1-2 po q 4-6h Last Documented On 1 1:34PM By Sam Saenz ; [facility] Acetaminophen 500 MG Oral Tablet 08/22/2020 - 09/21/2020 Provider: Riaz Saenz MD Diagnosis: 2 three times a day DNF UNTIL SX 08/20/20 Last Documented On 1 9:48AM By Sam Saenz ; [facility] Ultram 50 MG Oral Tablet 08/22/2020 - 08/27/2020 Provider: Riaz valentine MD Diagnosis: 1-2 po q6h prn pain Last Documented On 1 9:53AM By Sam Saenz ; [facility] oxyCODONE HCl 10 MG Oral Tablet 08/22/2020 - 09/01/2020 Provider: Riaz valentine MD Diagnosis: 1-2 po q 4-6h Last Documented On 1 9:53AM By Sam Saenz ; [facility] Neurontin 300 MG Oral Capsule 08/22/2020 - 11/20/2020 Provider: Riaz valentine MD Diagnosis: 1 every bedtime Last Documented On 1 9:53AM By Sam Saenz ; [facility] Colace 100 MG Oral Capsule 08/22/2020 - 11/20/2020 Provider: Riaz valentine MD Diagnosis: 1-2 tabs daily DNF UNTIL SX 08/20/20 Last Documented On 1 9:49AM By Sam Saenz ; [facility] Ultram 50 MG Oral Tablet 08/14/2020 - 08/19/2020 Provider: Riaz valentine MD Diagnosis: 1-2 po q6h prn pain DNF UNTIL SX 08/20/20 Last Documented On 1 2:19PM By Sam Saenz ; [facility] oxyCODONE HCl 5 MG Oral Tablet 08/14/2020 - 08/19/2020 Provider: Riaz valentine MD Diagnosis: 1-2 po q 4-6h DNF UNTIL SX 08/20/20 Last Documented On 1 2:03PM By Sam Saenz ; [facility] Neurontin 300 MG Oral Capsule 08/14/2020 - 11/12/2020 Provider: Riaz valentine MD Diagnosis: 1 every bedtime DNF UNTIL SX 08/20/20 Last Documented On 1 2:03PM By Sam Saenz ; [facility] Mupirocin 2% External Ointment 07/26/2020 - 11/20/2021 Provider: Riaz valentine MD Diagnosis: three times a day Apply to n ostrils 3 time a day 5 days prior to surgery. Last Documented On 2 10:58AM By Catrachita Hickman ; [facility] Ultram 50 MG Oral Tablet 07/18/2020 - 07/28/2020 Provider: Riaz valentine MD Diagnosis: 1-2 po q6h prn pain Last Documented On 1 10:01AM By Sam Saenz ; [facility] oxyCODONE HCl 10 MG Oral Tablet 07/18/2020 - 07/28/2020 Provider: Riaz valentine MD Diagnosis: take as directed; take 1-2 t ablets po q 8 hours prn pain Last Documented On 1 10:01AM By Sam Saenz ; [facility] oxyCODONE HCl 5 MG Oral Tablet 10/26/2019 - 11/05/2019 Provider: Riaz valentine MD Diagnosis: Take 1 tablet every 8 hrs prn pain Last Documented On 0 3:34PM By Silva Sheridan ; [facility] Protonix 40 MG Oral Tablet Delayed Release 08/17/2019 - 11/20/2021 Provider: Diagnosis: Last Documented On 2 10:59AM By Catrachita Hickman ; [facility] Potassium Chloride Fiona ER 2 0 MEQ Oral Tablet Extended Release 08/17/2019 - 11/20/2021 Provider: Diagnosis: Last Documented On 2 10:59AM By Catrachita Hickman ; [facility] oxyCODONE HCl 5 MG Oral Tablet 08/17/2019 - 11/20/2021 Provider: Diagnosis: Last Documented On 2 10:59AM By Catrachita Hickman ; [facility] Daily Multivitamin Oral Capsule 08/17/2019 - Provider: Diagnosis: Last Documented On 2 10:58AM By Catrachita Hickman ; [facility] Milk of Magnesia 400 MG/5ML Oral Suspension 08/17/2019 - 11/20/2021 Provider: Diagnosis: Last Documented On 2 10:59AM By Catrachita Hickman ; [facility] MiraLax Oral Packet 08/17/2019 - 11/20/2021 Provider: Diagnosis: Last Documented On 2 10:59AM By Catrachita Hickman ; [facility] Magnesium 250 MG Oral Tablet 08/17/2019 - 11/21/19 22 Provider: Diagnosis: Last Documented On 2 10:58AM By Catrachita Hickman ; [facility] Senokot S 8.6-50 MG Oral Tablet 08/17/2019 - Provider: Diagnosis: Last Documented On 2 10:59AM By Catrachita Hickman ; [facility] Lisinopril 10 MG Oral Tablet 08/17/2019 - 11/20/2021 Briana jarader: Diagnosis: Last Documented On 2 10:59AM By Catrachita Hickman ; [facility] Warfarin Sodium 1 MG Oral Tablet 08/17/2019 - 11/21/19 Provider: Diagnosis: Last Documented On 2 10:59AM By Catrachita Hickman ; [facility] Warfarin Sodium 6 MG Oral Tablet 08/17/2019 - 01/31/20 Provider: Diagnosis: Last Documented On 1 11:30AM By Bertha Jack ; [facility] Tubersol 5 UNIT/0.1ML Intradermal Solution 08/17/2019 - 11/20/2021 Provider: Diagnosis: Last Documented On 2 10:59AM By Catrachita Hickman ; [facility] Synthroid 100 MCG Oral Tablet 08/17/2019 - 11/20/2021 Provider: Diagnosis: Last Documented On 2 10:59AM By Catrachita Hickman ; [facility] Aspirin 81 MG Oral Tablet Delayed Release 08/17/2019 - 11/20/2021 Provider: Diagnosis: Last Documented On 2 10:58AM By Catrachita Hickman ; [facility] Acetaminophen 325 MG Oral Tablet 08/17/2019 - 11/21/19 Provider: Diagnosis: Last Documented On 2 10:58AM By Catrachita Hickman ; [facility] CoQ-10 10 MG Oral Capsule 08/17/2019 - 11/20/2021 Prov ider: Diagnosis: Last Documented On 10:58AM By Catrachita Hickman ; [facility] Crestor 10 MG Oral Tablet 08/17/2019 - 11/20/2021 Prov ider: Diagnosis: Last Documented On 10:58AM By Catrachita Hickman ; [facility] Cyanocobalamin 5000 MCG Oral Tablet Disintegrating 08/17/2019 - 11/20/2021 Provider: Diagnosis: Last Documented On 2 10:58AM By Catrachita Hickman ; [facility] Cymbalta 60 MG Oral Capsule Delayed Release Particles 08/17/2019 - 11/20/2021 Provider: Diagnosis: Last Documented On 10:58AM By Catrachita Hickman ; [facility] Diclofenac Sodium 75 MG Oral Tablet Delayed Release 08/17/2019 - 11/20/2021 Provider: Diagnosis: Last Documented On 10:59AM By Catrachita Hickman ; [facility] Docusil 100 MG Oral Capsule 08/17/2019 - 11/20/2021 Pr ovider: Diagnosis: Last Documented On 10:59AM By Catrachita Hickman ; [facility] Florastor 250 MG Oral Capsule 08/17/2019 - 11/20/2021 Provider: Diagnosis: Last Documented On 10:59AM By Catrachita Hickman ; [facility] Fluticasone Propionate (Inha l) 50 MCG/BLIST Inhalation Aerosol Powder Breath Activated 08/17/2019 - 11/20/2021 Provider: Diagnosis: Last Documented On 2 10:59AM By Catrachita Hickman ; [facility] Gabapentin 300 MG Oral Capsule 08/17/2019 - 11/20/2021 Provider: Diagnosis: Last Documented On 10:59AM By Catrachita Hickman ; [facility] Keflex 500 MG Oral Capsule 08/17/2019 - 11/20/2021 Pro vider: Diagnosis: Last Documented On 10:59AM By Catrachita Hickman ; [facility] Loratadine 10 MG Oral Capsule 08/17/2019 - 11/20/2021 Provider: Diagnosis: Last Documented On 2 10:59AM By Catrachita Hickman ; [facility] oxyCODONE HCl 5MG [...] On 9 8:56AM By Lorena Mijares ; [facility] traMADol HCl 50MG Oral Tablet 08/17/2018 - 08/22/2018 Provider: Riaz valentine MD Diagnosis: 1-2 po q6h prn pain FOR RODRIGUEZ RGERY DO NOT FILL UNTIL 08/22/18 Last Documented On 9 8:57AM By Lornea Mijares ; [facility] oxyCODONE HCl 5MG Oral Tablet 08/17/2018 - 08/22/2018 Provider: Riaz valentine MD Diagnosis: 1-2 po q6h prn pain FOR RODRIGUEZ RGERY DO NOT FILL UNTIL 08/22/18 Last Documented On 9 8:57AM By Lorena Mijares ; [facility] Neurontin 300MG Oral Capsule 08/17/2018 - 11/15/2018 Provider: Riaz valentine MD Diagnosis: 1 every bedtime FOR SURGER Y DO NOT FILL UNTIL 08/22/18 Last Documented On 9 8:57AM By Lorena Mijares ; [facility] Dilaudid 2MG Oral Tablet 08/17/2018 - 08/19/2018 Provi ofelia: Riaz Saenz MD Diagnosis: 1-2 po q6h prn pain (RESCUE PAIN)FOR SURGERY DO NOT FILL UNTIL 08/22/18 Last Documented On 9 8:57AM By Lorena Mijares ; [facility] Mupirocin 2% External Ointment 07/22/2018 - 07/27/2018 Provider: Riaz valentine MD Diagnosis: Apply to nostrils 3 times a day 5 days prior to surgery. Last Documented On 9 1:17PM By Silva Sheridan ; [facility] D3 1000UNIT Oral Capsule 06/09/2018 - 08/17/2019 P rovider: Diagnosis: Last Documented On 0 2:04PM By Oma Child ; [facility] Lisinopril 10MG Oral Tablet 06/09/2018 - 08/17/2019 Pr ovider: Diagnosis: Last Documented On 0 1:56PM By Oma Child ; [facility] Lasix 40MG Oral Tablet 06/09/2018 - 08/17/2019 Provide r: Diagnosis: Last Documented On 0 2:04PM By Oma Child ; [facility] Magnesium 250MG Oral Tablet 06/09/2018 - 0 Provider: Diagnosis: Last Documented On 0 1:57PM By Oma Child ; [facility] B Complex-B12 Oral Tablet 06/09/2018 - 08/17/2019 Prov ider: Diagnosis: Last Documented On 0 2:04PM By Oma Child ; [facility] Loratadine 10MG Oral Capsule 06/09/2018 - 08/17/2019 P rovider: Diagnosis: Last Documented On 0 1:56PM By Oma Child ; [facility] Fluticasone Propionate 5 0MCG/ACT Nasal Suspension 06/09/2018 - 08/17/2019 Provider: Diagnosis: Last Documented On 0 2:04PM By Oma Child ; [facility] MiraLax Oral Packet 06/09/2018 - 08/17/2019 Provider: Diagnosis: Last Documented On 0 1:58PM By Oma Child ; [facility] Caltrate 600 1500 (600 Ca)MG Oral Tablet 06/09/2018 - 08/17/2019 Provider: Diagnosis: Last Documented On 0 2:04PM By Oma Child ; [facility] Turmeric 400MG Oral Capsule 06/09/2018 - 08/17/2019 Pr ovider: Diagnosis: Last Documented On 0 2:04PM By Oma Child ; [facility] Crestor 10MG Oral Tablet 06/09/2018 - 08/17/2019 Provi ofelia: Diagnosis: Last Documented On 0 1:51PM By Oma Child ; [facility] Potassium Chloride 20MEQ Oral Packet 06/09/2018 - 07/30 Provider: Diagnosis: Last Documented On 0 2:00PM By Oma Child ; [facility] OxyCODONE HCl 5MG Oral Tablet 11/13/2016 - 12/13/2016 Provider: Stan Romero MD Diagnosis: 1-2 po q 4-6h, post op Last Documented On 7 9:34AM By Maira Booker ; [facility] OxyCODONE HCl 5 MG Tablet 10/19/2016 - 10/29/2016 Prov ider: Riaz Saenz MD Diagnosis: 1-2 po q 4-6h FOR SURGERY Last Documented On 7 11:41AM By Sravanthi Elizondo ; [facility] Neurontin 300 MG Capsule 10/19/2016 - 01/17/2017 Provi ofelia: Riaz Saenz MD Diagnosis: 1 every bedtime FOR SURGERY Last Documented On 7 11:41AM By Sravanthi Elizondo ; [facility] Mobic 15 MG Tablet 10/19/2016 - 11/18/2016 Provider: Riaz Saenz MD Diagnosis: once a day FOR SURGERYDO N OT FILL TILL 10/26/16 Last Documented On 7 11:51AM By Sravanthi Elizondo ; [facility] Colace 100 MG Capsule 10/19/2016 - 01/17/2017 Provider : Riaz Saenz MD Diagnosis: 1-2 tabs daily FOR SURGERY * *DO NOT FILL TILL 10/26/16 Last Documented On 7 11:51AM By Sravanthi Elizondo ; [facility] Acetaminophen 500 MG Tablet 10/19/2016 - 10/27/2016 Pr ovider: Riaz Saenz MD Diagnosis: 2 three times a day FOR SURG ANITHADO NOT FILL TILL 10/26/16 Last Documented On 7 11:51AM By Sravanthi Elizondo ; [facility] TraMADol HCl 50 MG Tablet 10/19/2016 - 11/01/2016 Provider: Riaz valentine MD Diagnosis: 2 tablets every 6 hours FOR SURGERY Last Documented On 7 11:42AM By Sravanthi Elizondo ; [facility] Ferrous Sulfate 27 MG Tablet 07/23/2016 - 06/09/2018 P rovider: Diagnosis: Last Documented On 9 11:44AM By Oma Child ; [facility] Synthroid 100 MCG Tablet 07/23/2016 - 08/17/2019 Provi ofelia: Diagnosis: Last Documented On 0 2:04PM By Oma Child ; [facility] Cymbalta 60 MG Capsule Delayed Release Particles 07/23/2016 - 08/17/2019 Provider: Diagnosis: Last Documented On 0 1:52PM By Oma Child ; [facility] Aspirin 81 MG Tablet Delayed Release 07/23/2016 - 07/30 Provider: Diagnosis: Last Documented On 0 1:48PM By Oma Child ; [facility] TraMADol HCl 50 MG Tablet 07/23/2016 - 08/17/2019 Prov ider: Diagnosis: Last Documented On 0 2:05PM By Oma Child ; [facility] Diclofenac Sodium 75 MG Tablet Delayed Release 0 07/23/2016 - 08/17/2019 Provider: Diagnosis: Last Documented On 0 1:53PM By Oma Child ; [facility] CoQ-10 100 MG Capsule 07/23/2016 - 08/17/2019 Provider : Diagnosis: Last Documented On 0 1:50PM By Oma Child ; [facility] Simvastatin 20 MG Tablet 07/23/2016 - 08/17/2019 Provi ofelia: Diagnosis: Last Documented On 0 2:04PM By Oma Child ; [facility] Morphine Sulfate 15 MG Tablet 07/23/2016 - 08/17/2019 Provider: Diagnosis: Last Documented On 0 2:04PM By Oma Child ; [facility] Medications Administered Includes: Administered Medications in patient's chart No Administered Medications Recorded Vital Signs Includes: Vital Signs from 06/09/2023 through 06/08/2024 Vital Name 04/10/2024 11:06A Height (in) 59 Weight (lb) 200 Body Mass Index 40.4 Body Surface Area 1.8 Note: bfj Last Documented: On 04/10/2024 11:07A M ; [facility] Results Includes: Results from 06/09/2023 through 06/08/2024 No Results Recorded For Specified Dates History of Present Illness History of Present Illness not supported for this document type No History of Present Illness Recorded Social History Description Last Updated Exercising regularly 11/27/2022 Last Documented On 4 2:50PM ; [facility] Tobacco non-user 11/20/2021 Last Documented On 2 12:39PM ; [facility] No recent change in diet 06/19/2021 Last Documented On 2 9:17AM ; [facility] Not a current smoker. 06/19/2021 Last Documented On 2 9:17AM ; [facility] Not a current smoker. 05/02/2020 Last Documented On 1 12:27PM ; [facility] Non-smoker 02/01/2020 Last Documented On 0 10:59AM ; [facility] Caffeine use 07/23/2016 Last Documented On 7 10:35AM ; [facility] No recent change in diet 07/23/2016 Last Documented On 7 10:35AM ; [facility] Not a current smoker 07/23/2016 Last Documented On 7 10:35AM ; [facility] Not using alcohol 07/23/2016 Last Documented On 7 10:35AM ; [facility] Not using drugs 07/23/2016 Last Documented On 7 10:35AM ; [facility] No tobacco use 07/23/2016 Last Documented On 7 10:35AM ; [facility] Smoking status : Never smoker 07/23/2016 Last Documented On 7 10:35AM ; [facility] Procedures and Surgical History Includes: Procedures from 06/09/2023 through 06/08/2024 Procedures Code Diagnosis Performing Provider Service Location Service Date X-RAY EXAM OF SHOULDER 2-3 VIEWS (LEFT) 18394 Primary osteoarthritis, left shoulder Steven Saavedra MD [facility] 04/10/2024 Last Documented On 5 4:32PM ; [facility] Triamcinolone/Kenalog, 10mg per cc [id number] Primary osteoarthritis, left shoulder Steven Saavedra MD [facility] 04/10/2024 Last Documented On 5 4:32PM ; [facility] INJECTION MAJOR JOINT WITH ULTRASOUND GUIDANCE (LEFT) [id number] Primary osteoarthritis, left shoulder Steven Saavedra MD [facility] 04/10/2024 Last Documented On 5 4:32PM ; [facility] Surgical History Last Updated History of shoulder arthroplasty 017 Last Documented On 7 10:35AM ; [facility] History of total knee arthroplasty 07/23 Last Documented On 7 10:35AM ; [facility] Medical History Includes: Medical History in patient's chart Description Last Updated History of Anemia 04/10/2024 Last Documented On 5 11:39AM ; [facility] History of Fractures 04/10/2024 Last Documented On 5 11:39AM ; [facility] History of Hypertension 04/10/2024 Last Documented On 5 11:39AM ; [facility] History of arthritis 11/27/2022 Last Documented On 4 2:50PM ; [facility] History of History of Blood Transfusion 11/27/2022 Last Documented On 4 2:50PM ; [facility] History of Sleep Apnea 11/27/2022 Last Documented On 4 2:50PM ; [facility] History of Thyroid Disease 11/27/2022 Last Documented On 4 2:50PM ; [facility] Use of CPAP 11/27/2022 Last Documented On 4 2:50PM ; [facility] Anemia 05/02/2020 Last Documented On 1 12:27PM ; [facility] Arthritis 05/02/2020 Last Documented On 1 12:27PM ; [facility] Heartburn / Acid Reflux 05/02/2020 Last Documented On 1 12:27PM ; [facility] History of Blood Transfusion 05/02/2020 Last Documented On 1 12:27PM ; [facility] Hypertension 05/02/2020 Last Documented On 1 12:27PM ; [facility] Irregular Heartbeat 05/02/2020 Last Documented On 1 12:27PM ; [facility] Recent immunization for flu 05/02/2020 Last Documented On 1 12:27PM ; [facility] Sleep Apnea 05/02/2020 Last Documented On 1 12:27PM ; [facility] Use of CPAP 05/02/2020 Last Documented On 1 12:27PM ; [facility] high cholesterol, acid reflu x, irregular heartbeat, blood transfusion, cataracs, anemia 08/17/2019 Last Documented On 0 8:24AM ; [facility] History of asthma 06/09/2018 Last Documented On 9 11:24AM ; [facility] A previous fracture 07/23/2016 Last Documented On 7 10:35AM ; [facility] A recent immunization for pneumococcal p neumonia 07/23/2016 Last Documented On 7 10:35AM ; [facility] Arthritic joint problems 07/23/2016 Last Documented On 7 10:35AM ; [facility] History of osteoporosis 07/23/2016 Last Documented On 7 10:35AM ; [facility] Intermittent hypertension 07/23/2016 Last Documented On 7 10:35AM ; [facility] Thyroid disease 07/23/2016 Last Documented On 7 10:35AM ; [facility] A recent injection 07/23/2016 Last Documented On 7 10:35AM ; [facility] Family History Includes: Family History in patient's chart Description Last Updated Family history of hypertension 0 Last Documented On 0 8:24AM ; [facility] Family history of osteoporosis 0 Last Documented On 0 8:24AM ; [facility] Family history of cancer 06/09/2018 Last Documented On 9 11:24AM ; [facility] Stroke/seizure 12/17/2016 Last Documented On 7 10:34AM ; [facility] Stroke/seizure: maternal history 017 Last Documented On 7 10:35AM ; [facility] Maternal history of hypertension 017 Last Documented On 7 10:35AM ; [facility] Maternal history of osteoporosis 017 Last Documented On 7 10:35AM ; [facility] Paternal history of family history of ca ncer 07/23/2016 Last Documented On 7 10:35AM ; [facility] Review of Systems Review of Systems not supported for this document type No Review of Systems Recorded Mental Status Description No anxiety Functional Status No Functional Status Recorded Physical Exam Physical Exam not supported for this document type No Physical Exam Recorded Immunizations Includes: Immunizations in patient's chart Vaccine Dose # Date Site Reaction(s) Status Source Influenza 1 10/31/2019 Complete (Reported) Patient Last Documented On 0 4:20PM ; [facility] PCV (Pneumovax 23) 1 07/30/2018 Complete ( Reported) Patient Last Documented On 0 4:20PM ; [facility] Allergies Includes: Active, inactive, and resolved Allergies Substance Type Reaction Onset Date Resolved Date Statu s Penicillin G Benzathine Allergy 06/09/2018 Active Last Documented On 5 10:57AM ; [facility] Naproxen Allergy 06/09/2018 Active Last Documented On 5 10:57AM ; [facility] Mobic Allergy 06/09/2018 Active Last Documented On 5 10:57AM ; [facility] Encounters Includes: Encounters from 06/09/2023 through 06/08/2024 Encounter Provider Location Date Check-In Time Check-Out Time Diagnosis Physician Specified Yusef Doshi PA-C [facility] 04/10/19 25 10:31AM 11:35AM Overweight Insurance Includes: Active Insurance Policies Plan Name Member ID Group # Subscriber Relationship Effect ivan Dates 1 - [facility] /MEDICARE [id number] Sy Barlow Self 03/01/2016 - Unknown Clinical Notes Includes: Signed Clinical Notes starting from 02/12/2022 * Progress note Date Encounter Last Documented by 04/10/2024 Physician Specified Virgil varela on 04/10/2024; 11:39 AM, Yusef Doshi PA-C; [facility] Active Problems & Conditions - History [...] 0 refills - Vitamin D3 1.25 MG (24896 UT) Oral Capsule 0 days, 0 refills [...] injury in past year Care Team - VREONICA SCHUSTER MD - [employer] [employer] APPRENTICE
== END 2024-06-06 23:59 | disposition home or self-care (01) ==
LOC: RAD 13:05
PROVIDERS: PCP Nurse Practitioner Family; Visit Provider Urology
DX: N28.1 Cyst of kidney, acquired (principal)
CPT/HCPCS: 76770

== ENCOUNTER 2024-07-18 13:02 | Outpatient (CLI) | payer MEDICARE, SELFPAY ==
--- NOTE | 2024-07-18 | CA_ITS ---
APPROVED REPORT EXAM: Comprehensive 2D, Doppler, and color-flow Echocardiogram Hydro Operator: Yuko Boss CRT Ht: 5 ft 0 in Wt: 300lbs BSA: 2.22 BP: 140/72 mmHg Indications: - LAST ECHO 07/08/18, TDE due to large body habitus HTN, HLD, DM, EDEMA, SHERRY 2D Dimensions Left Atrium 4.66 cm LA Volume 66.00 mL RVID Base (AP4) 3.10 cm (M/F) 2.5-4.1 LA Volume Index 35.30 mL/m2 (M/F) 16-34 LVOT 1.57 cm (M/F) 1.5-2.5 EF AP4 62.60 % GL Strain -11.4 % M-Mode Dimensions RVDd 3.23 cm (0.9-2.6) LVDd 4.03 cm (3.5-5.7) Ao Diam 2.60 cm (2.0-3.7) LVDs 1.90 cm (3.5-5.7) IVSd 1.06 cm (0.6-1.1) PWd 0.84 cm (0.6-1.1) EF (Teich) 84.30% FS 52.90% EDV (Teich) 71.30 mL TAPSE 2.29 (<1.7) ESV (Teich) 11.20 mL LV Diastology E Decel Time 150 (160-240 msec) E/A Ratio 3.80 MED E' 20.0 (>= 7 cm/sec) MED A' 6.50 cm/s E'/MED E' Ratio 7.38 (<= 14) LAT E' 5.5 (>= 10 cm/sec) LAT A' 18.80 cm/s E/LAT E' Ratio 26.84 (<= 14) Aortic Valve LVOT Max 145.0 (70-110 cm/s) GUANAKO Index 0.36 cm2/m2 LVOT VTI 34.50 cm AoV Peak Zen. 450.0 (50-130 cm/s) AO Peak GR. 84.70 mmHg AO Mean GR. 42.10 (<5 mmHg) AO VTI 98.2 (18-25 cm) GUANAKO (VTI) 0.68 (2.5-4.5 cm2) Mitral Valve MV E Max Zen. 148.0 (40-130 cm/s) MV A Velocity 39.0 (40-130 cm/s) E/A Ratio 3.80 MV Decel. Time 150 (160-240 ms) Tricuspid Valve TR P. Velocity 209.00 cm/s RAP Estimate 10.00 mmHg RVSP 27.40 mmHg Left Ventricle The left ventricle is normal size. The left ventricular systolic function is normal. The left ventricular ejection fraction is within the normal range. There is increased LV wall thickness. There is normal LV segmental wall motion. Diastolic function is indeterminate. LVEF is 55%. Right Ventricle The right ventricle is normal size. The right ventricular systolic function is normal. Atria Left atrium is mildly dilated. The right atrium is mildly dilated. Aortic Valve The aortic valve is moderately thickened. Severe aortic stenosis is present. GUANAKO by continuity equation is 0.8 cm2. Peak velocity 4.1 m/s. Mean AV gradient 36 mmHg. Max AV gradient 68 mmHg. Trace aortic regurgitation. Mitral Valve The mitral valve leaflets are mildly thickened. No evidence of mitral valve stenosis. Trace mitral regurgitation. Tricuspid Valve Tricuspid valve is grossly normal in structure and function. Mild tricuspid regurgitation. RVSP is 20-25 mmHg. Pulmonic Valve The pulmonary valve is normal in structure. Mild pulmonic regurgitation. Great Vessels The aortic root is normal in size. IVC is normal in size and collapses >50% with inspiration. Pericardium There is no pericardial effusion. Other Information Study Quality: Technically Difficult Conclusion Technically difficult study due to poor acoustic windows. Normal biventricular systolic function. Biatrial dilation. Severe (GUANAKO by continuity equation is 0.8 cm2. Peak velocity 4.1 m/s. Mean AV gradient 36 mmHg. Max AV gradient 68 mmHg). Mild TR, mild PI. In the setting of severe , further evaluation with early referral for TAVR vs. surgical evaluation is suggested. Electronically signed by : Padma Bergeron MD 07/24/2024 22:26:14
--- OUTSIDE RECORDS SUMMARY | 2024-07-18 13:04 | XMS_ITS | Data Portability ---
Author Organization [facility] [place] RADHA Bell LOCKE CLOSED Address [address] [facility] [address] [place] [address] Assessment No assessment recorded. Plan of Treatment Reminders Order Date Submit Date Provider Last Modified By Organization Details Last Modified Time Details Appointments RECHECK 2024 01:30P Edward PARR MD Not available Not available Not available Lab urinalysi s panel, auto 2023 024 [facility], [address], [place], [address], 11/24/2023 08:06:03 urinalysi s, dipstick, auto 2017 018 [facility], [address], [place], [address], 02/22/2018 19:59:53 urinalysi s, dipstick, auto 2017 018 [facility], [address], [place], [address], 07/13/2017 06:37:24 Referral None recorded. Procedures None recorded. Surgeries cystoscop y (SURG) 2023 024 [email or web address] [facility], [address], [place], [address], 06/09/2023 16:22:49 Imaging US, retroperi toneum, limited - US KIDNEY BILAT WITHOUT BLADDERPL EASE CONTACT SOFIA BARLOW @ 2023 024 [facility] ([facility]), [address], [place], [address], 11/30/2023 15:11:50 CT, abdomen + pelvis, w/wo contrast 2023 024 [facility], [address], [place], [address], 05/12/2023 14:46:31 US, retroperi toneum, limited - Bilateral Kidney Ultra Sound 2017 019 [facility], [address], [place], [address], 06/04/2019 05:03:01 US, retroperi toneum, limited 2017 018 [facility], [address] [place], [address], 02/08/2018 16:10:42 Medication Orders None recorded. Patient TargetsNo targets recorded. Patient Instructions Encounter Date Encounter Id Patient Instructions Last Modified By Organization Details Last Modified Time 07/12/2017 [id number] I counseled the patient that she does not have any malignant appearing cysts. We will plan for follow-up in 6 months with renal ultrasound. We'll plan for renal mass protocol CT scan if there are significant changes on ultrasound follow-up. [email or web address] Not available 07/13/2017 06:37:45 02/14/2018 [id number] Renal cysts appear benign and stable tslabaugh Not available 02/22/2018 20:00:22 11/15/2023 [id number] learning about depression [email or web address] Not available 11/24/2023 08:05:59 Reason for Referral None Reported. Results Created Date Observation Date Name Description Value Unit Range Abnormal Flag Note LastModifiedBy Organization Detail LastModifiedTime 07/13/19 18 07/12/2017 urina lysis , dipst ick, auto Unknown Analyte Yellow Not Available [facility] [address], [place], [address], 07/12/2017 09:28:59 07/13/19 18 07/12/2017 urina lysis , dipst ick, auto Unknown Analyte Clear Not Available [facility] [address], [place], [address], 07/12/2017 09:28:59 07/13/19 18 07/12/2017 urina lysis , dipst ick, auto Unknown Analyte 1.015 Not Available [facility] [address], [place], [address], 07/12/2017 09:28:59 07/13/19 18 07/12/2017 urina lysis , dipst ick, auto Unknown Analyte 5.0 Not Available [facility] [address], [place], [address], 07/12/2017 09:28:59 07/13/19 18 07/12/2017 urina lysis , dipst ick, auto Unknown Analyte Negati ve Not Available [facility] [address], [place], [address], 07/12/2017 09:28:59 07/13/19 18 07/12/2017 urina lysis , dipst ick, auto Unknown Analyte Negati ve Not Available [facility] [address], [place], [address], 07/12/2017 09:28:59 07/13/19 18 07/12/2017 urina lysis , dipst ick, auto Unknown Analyte Negtiv e Not Available [facility] [address], [place], [address], 07/12/2017 09:28:59 07/13/19 18 07/12/2017 urina lysis , dipst ick, auto Unknown Analyte Normal Not Available [facility] [address], [place], [address], 07/12/2017 09:28:59 07/13/19 18 07/12/2017 urina lysis , dipst ick, auto Unknown Analyte Negati ve Not Available [facility] [address], [place], [address], 07/12/2017 09:28:59 07/13/19 18 07/12/2017 urina lysis , dipst ick, auto Unknown Analyte Normal Not Available [facility] [address], [place], [address], 07/12/2017 09:28:59 07/13/19 18 07/12/2017 urina lysis , dipst ick, auto Unknown Analyte Negati ve Not Available [facility] [address], [place], [address], 07/12/2017 09:28:59 07/13/19 18 07/12/2017 urina lysis , dipst ick, auto Unknown Analyte Negati ve Not Available [facility] [address], [place], [address], 07/12/2017 09:28:59 07/13/19 18 07/12/2017 urina lysis , dipst ick, auto Unknown Analyte Clean Catch Not Available [facility] [address], [place], [address], 07/12/2017 09:28:59 07/13/19 18 07/12/2017 urina lysis , dipst ick, auto Unknown Analyte Automa avery Not Available [facility] [address], [place], [address], 07/12/2017 09:28:59 02/15/20 18 02/14/2018 urina lysis , dipst ick, auto Unknown Analyte Yellow Not Available [facility] [address], [place], [address], 02/14/2018 12:19:32 02/15/20 18 02/14/2018 urina lysis , dipst ick, auto Unknown Analyte Clear Not Available [facility] [address], [place], [address], 02/14/2018 12:19:32 02/15/20 18 02/14/2018 urina lysis , dipst ick, auto Unknown Analyte 1.010 Not Available [facility] [address], [place], [address], 02/14/2018 12:19:32 02/15/20 18 02/14/2018 urina lysis , dipst ick, auto Unknown Analyte 1.003 - 1.035 Not Available [facility] [address], [place], [address], 02/14/2018 12:19:32 02/15/20 18 02/14/2018 urina lysis , dipst ick, auto Unknown Analyte 8.0 Not Available [facility] [address], [place], [address], 02/14/2018 12:19:32 02/15/20 18 02/14/2018 urina lysis , dipst ick, auto Unknown Analyte 5.0 - 8.0 Not Available [facility] [address], [place], [address], 02/14/2018 12:19:32 02/15/20 18 02/14/2018 urina lysis , dipst ick, auto Unknown Analyte Negati ve Not Available [facility] [address], [place], [address], 02/14/2018 12:19:32 02/15/20 18 02/14/2018 urina lysis , dipst ick, auto Unknown Analyte Negati ve Not Available [facility] [address], [place], [address], 02/14/2018 12:19:32 02/15/20 18 02/14/2018 urina lysis , dipst ick, auto Unknown Analyte Negati ve Not Available [facility] [address], [place], [address], 02/14/2018 12:19:32 02/15/20 18 02/14/2018 urina lysis , dipst ick, auto Unknown Analyte Negati ve Not Available [facility] [address], [place], [address], 02/14/2018 12:19:32 02/15/20 18 02/14/2018 urina lysis , dipst ick, auto Unknown Analyte Negtiv e Not Available [facility] [address], [place], [address], 02/14/2018 12:19:32 02/15/20 18 02/14/2018 urina lysis , dipst ick, auto Unknown Analyte Negati ve - Trace Not Available [facility] [address], [place], [address], 02/14/2018 12:19:32 02/15/20 18 02/14/2018 urina lysis , dipst ick, auto Unknown Analyte Normal Not Available [facility] [address], [place], [address], 02/14/2018 12:19:32 02/15/20 18 02/14/2018 urina lysis , dipst ick, auto Unknown Analyte Normal Not Available [facility] [address], [place], [address], 02/14/2018 12:19:32 02/15/20 18 02/14/2018 urina lysis , dipst ick, auto Unknown Analyte Negati ve Not Available [facility] [address], [place], [address], 02/14/2018 12:19:32 02/15/20 18 02/14/2018 urina lysis , dipst ick, auto Unknown Analyte Negati ve Not Available [facility] [address], [place], [address], 02/14/2018 12:19:32 02/15/20 18 02/14/2018 urina lysis , dipst ick, auto Unknown Analyte Normal Not Available [facility] [address], [place], [address], 02/14/2018 12:19:32 02/15/20 18 02/14/2018 urina lysis , dipst ick, auto Unknown Analyte Normal - 1mg/dl Not Available [facility] [address], [place], [address], 02/14/2018 12:19:32 02/15/20 18 02/14/2018 urina lysis , dipst ick, auto Unknown Analyte Negati ve Not Available [facility] [address], [place], [address], 02/14/2018 12:19:32 02/15/20 18 02/14/2018 urina lysis , dipst ick, auto Unknown Analyte Negati ve Not Available [facility] [address], [place], [address], 02/14/2018 12:19:32 02/15/20 18 02/14/2018 urina lysis , dipst ick, auto Unknown Analyte Negati ve Not Available [facility] [address], [place], [address], 02/14/2018 12:19:32 02/15/20 18 02/14/2018 urina lysis , dipst ick, auto Unknown Analyte Negati ve Not Available [facility] [address], [place], [address], 02/14/2018 12:19:32 02/15/20 18 02/14/2018 urina lysis , dipst ick, auto Unknown Analyte Clean Catch Not Available [facility] [address], [place], [address], 02/14/2018 12:19:32 02/15/20 18 02/14/2018 urina lysis , dipst ick, auto Unknown Analyte Automa avery Not Available [facility] [address], [place], [address], 02/14/2018 12:19:32 05/12/19 24 05/12/2023 urina lysis panel , auto Unknown Analyte Clean Catch Not Available [facility] [address] [place] [address], [address], 05/12/2023 15:17:03 05/12/19 24 05/12/2023 urina lysis panel , auto Unknown Analyte Yellow Not Available [facility] [address] [place] [address], [address], 05/12/2023 15:17:03 05/12/19 24 05/12/2023 urina lysis panel , auto Unknown Analyte Clear Not Available [facility] [address] [place] [address], [address], 05/12/2023 15:17:03 05/12/19 24 05/12/2023 urina lysis panel , auto Unknown Analyte 1.[address] [facility] [address] [place] [address], [address], 05/12/2023 15:17:03 05/12/19 24 05/12/2023 urina lysis panel , auto Unknown Analyte 1.003- 1.035 Not Available [facility] [address] [place] [address], [place], [address], 05/12/2023 15:17:03 05/12/19 24 05/12/2023 urina lysis panel , auto Unknown Analyte 7.[address] [facility] [address] [place] [address], [place], [address], 05/12/2023 15:17:03 05/12/19 24 05/12/2023 urina lysis panel , auto Unknown Analyte 5.0-8. 0 Not Available [facility] [address] [place] [address], [place], [address], 05/12/2023 15:17:03 05/12/19 24 05/12/2023 urina lysis panel , auto Unknown Analyte Negati ve Not Available [facility] [address] [place] [address], [place], [address], 05/12/2023 15:17:03 05/12/19 24 05/12/2023 urina lysis panel , auto Unknown Analyte Negati ve Not Available [facility] [address] [place] [address], [place], [address], 05/12/2023 15:17:03 05/12/19 24 05/12/2023 urina lysis panel , auto Unknown Analyte Negati ve Not Available [facility] [address] [place] [address], [address], 05/12/2023 15:17:03 05/12/19 24 05/12/2023 urina lysis panel , auto Unknown Analyte Negati ve Not Available [facility] [address] [place] [address], [address], 05/12/2023 15:17:03 05/12/19 24 05/12/2023 urina lysis panel , auto Unknown Analyte Negati ve Not Available [facility] [address] [place] [address], [place], [address], 05/12/2023 15:17:03 05/12/19 24 05/12/2023 urina lysis panel , auto Unknown Analyte Negati ve Not Available [facility] [address] [place] [address], [address], 05/12/2023 15:17:03 05/12/19 24 05/12/2023 urina lysis panel , auto Unknown Analyte Normal Not Available [facility] [address] [place] [address], [address], 05/12/2023 15:17:03 05/12/19 24 05/12/2023 urina lysis panel , auto Unknown Analyte Normal Not Available [facility] [address] [place] [address], [address], 05/12/2023 15:17:03 05/12/19 24 05/12/2023 urina lysis panel , auto Unknown Analyte Negati ve Not Available [facility] [address] [place] [address], [address], 05/12/2023 15:17:03 05/12/19 24 05/12/2023 urina lysis panel , auto Unknown Analyte Negati ve Not Available [facility] [address] [place] [address], [address], 05/12/2023 15:17:03 05/12/19 24 05/12/2023 urina lysis panel , auto Unknown Analyte Normal Not Available [facility] [address] [place] [address], [address], 05/12/2023 15:17:03 05/12/19 24 05/12/2023 urina lysis panel , auto Unknown Analyte Normal 1 mg/dl Not Available [facility] [address] [facility] [address] [facility] [address], [place], [address], 05/12/2023 15:17:03 05/12/19 24 05/12/2023 urina lysis panel , auto Unknown Analyte Negati ve Not Available [facility] [address] [address], [place], [address], 05/12/2023 15:17:03 05/12/19 24 05/12/2023 urina lysis panel , auto Unknown Analyte Negati ve Not Available [facility] [address] [address], [place], [address], 05/12/2023 15:17:03 05/12/19 24 05/12/2023 urina lysis panel , auto Unknown Analyte Negati ve Not Available [facility] [address] [place] [address], [place], [address], 05/12/2023 15:17:03 05/12/19 24 05/12/2023 urina lysis panel , auto Unknown Analyte Negati ve Not Available [facility] [address] [place] [address], [place], [address], 05/12/2023 15:17:03 11/15/19 24 11/15/2023 urina lysis panel , auto Unknown Analyte Clean Catch Not Available [facility] [address], [place], [address], 11/15/2023 11:49:15 11/15/19 24 11/15/2023 urina lysis panel , auto Unknown Analyte Yellow Not Available [facility] [address], [place], [address], 11/15/2023 11:49:15 11/15/19 24 11/15/2023 urina lysis panel , auto Unknown Analyte Clear Not Available [facility] [address], [place], [address], 11/15/2023 11:49:15 11/15/19 24 11/15/2023 urina lysis panel , auto Unknown Analyte 1.005 Not Available [facility] [address], [place], [address], 11/15/2023 11:49:15 11/15/19 24 11/15/2023 urina lysis panel , auto Unknown Analyte 1.003- 1.035 Not Available [facility] [address], [place], [address], 11/15/2023 11:49:15 11/15/19 24 11/15/2023 urina lysis panel , auto Unknown Analyte 5.0 Not Available [facility] [address], [place], [address], 11/15/2023 11:49:15 11/15/19 24 11/15/2023 urina lysis panel , auto Unknown Analyte 5.0-8. 0 Not Available [facility] [address], [place], [address], 11/15/2023 11:49:15 11/15/19 24 11/15/2023 urina lysis panel , auto Unknown Analyte 25 Carlos/ul Trace Not Available [facility] [address], [place], [address], 11/15/2023 11:49:15 11/15/19 24 11/15/2023 urina lysis panel , auto Unknown Analyte Negati ve Not Available [facility] [address], [place], [address], 11/15/2023 11:49:15 11/15/19 24 11/15/2023 urina lysis panel , auto Unknown Analyte Negati ve Not Available [facility] [address], [place], [address], 11/15/2023 11:49:15 11/15/1911/15/2023 urina lysis panel , auto Unknown Analyte Negati ve Not Available [facility] [address], [place], [address], 11/15/2023 11:49:15 11/15/19 24 11/15/2023 urina lysis panel , auto Unknown Analyte Negati ve Not Available [facility] [address], [place], [address], 11/15/2023 11:49:15 11/15/19 24 11/15/2023 urina lysis panel , auto Unknown Analyte Negati ve Not Available [facility] [address], [place], [address], 11/15/2023 11:49:15 11/15/19 24 11/15/2023 urina lysis panel , auto Unknown Analyte Normal Not Available [facility] [address], [place], [address], 11/15/2023 11:49:15 11/15/19 24 11/15/2023 urina lysis panel , auto Unknown Analyte Normal Not Available [facility] [address], [place], [address], 11/15/2023 11:49:15 11/15/19 24 11/15/2023 urina lysis panel , auto Unknown Analyte Negati ve Not Available [facility] [address], [place], [address], 11/15/2023 11:49:15 11/15/19 24 11/15/2023 urina lysis panel , auto Unknown Analyte Negati ve Not Available [facility] [address], [place], [address], 11/15/2023 11:49:15 11/15/19 24 11/15/2023 urina lysis panel , auto Unknown Analyte Normal Not Available [facility] [address], [place], [address], 11/15/2023 11:49:15 11/15/19 24 11/15/2023 urina lysis panel , auto Unknown Analyte Normal 1 mg/dl Not Available [facility] [address], [place], [address], 11/15/2023 11:49:15 11/15/19 24 11/15/2023 urina lysis panel , auto Unknown Analyte Negati ve Not Available [facility] [address], [place], [address], 11/15/2023 11:49:15 11/15/19 24 11/15/2023 urina lysis panel , auto Unknown Analyte Negati ve Not Available [facility] [address], [place], [address], 11/15/2023 11:49:15 11/15/19 24 11/15/2023 urina lysis panel , auto Unknown Analyte Negati ve Not Available [facility] [address], [place], [address], 11/15/2023 11:49:15 11/15/19 24 11/15/2023 urina lysis panel , auto Unknown Analyte Negati ve Not Available [facility] [address], [place], [address], 11/15/2023 11:49:15 07/01/19 18 06/29/2017 US, retro perit oneum , limit ed No observ ation record ed. [facility] [address], [place], [address], 07/13/2017 06:38:55 07/09/19 18 07/07/2017 CT, abdom en, w/wo contr ast No observ ation record ed. [facility] [address], [place], [address], 07/13/2017 06:38:54 02/09/20 18 02/08/2018 US, retro perit oneum , limit ed [facility] [address] [facility] [place] [address] Patien t Name: SOFIA toney : [phone] [...] Johnnie Hawkins MD on 2017 4:05 PM [facility] [address] [place], [address], 02/22/2018 19:58:21 04/07/19 24 02/09/2023 US, renal No observ ation record ed. [facility] Not Available 2023 13:32:35 05/12/19 24 05/12/2023 CT, abdom en + pelvi s, w/wo contr ast [address] [address] Patikamran toney Name: SOFIA toney : [phone] Conner toney 4 Orderi ng Provid er: [facility] EXAM DATE: 2023 EXAM: CT ABD/PE LVIS [...] 350 (1 x 100 mL bottle of [facility] [id number] 1). 0 was wasted and discar [...] Hawkins MD on 024 2:41 PM [email or web address] [facility] [address], [place], [address], 05/14/2023 16:38:38 11/30/19 24 11/30/2023 US, retro perit oneum , limit ed No observ ation record ed. [email or web address] [facility] (Med Record) [address], [place], [address], 12/01/2023 09:40:10 06/08/19 25 06/06/2024 US, retro perit oneum , limit ed No observ ation record ed. [email or web address] Not Available 05/30 18:13:29 Result Notes None recorded. 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 Procedures Surgical History Date Name Laterality Status Provider Name and Address Organization Details Recorded Time Cystoscopy - female completed SHIRLEY PARR JR, MD [address] [place] [address], [phone], [facility] 05/12/2023 13:33:18 [facility] 03/31/[facility]23 10:33:39 maintenance of gastric band completed otis [facility] 03/31/2023 10:34:53 operative procedure on knee completed otis [facility] 03/31/2023 10:37:07 Imaging Results Imaging Date Name Status LastModified by Organiz ation Details LastModified Time 06/29/2017 US, retroperitone um, limited completed [facility] [address], [place], [address], 07/13/2017 06:38:55 07/07/2017 CT, abdomen, w/wo contrast completed [facility] [address], [place], [address], 07/13/2017 06:38:54 02/08/2018 US, retroperitone um, limited completed [facility] [address] [place], [address], 02/22/2018 19:58:21 02/09/2023 US, renal completed [facility] Information no t available 05/12/2023 13:32:35 05/12/2023 CT, abdomen + pelvis, w/wo contrast completed [facility]9 [facility] [address] [place], [address], 05/14/2023 16:38:38 11/30/2023 US, retroperitone um, limited completed [email or web address] [facility] (Med Record) [address], [place], [address], 12/01/2023 09:40:10 06/06/2024 US, retroperitone um, limited [...] Not available Not available Not available 01/23/20162012 [id number] [id number] SNOMED Comme nt: Creat ed By: Elmer varela Date: 2012 10:39 :32 AM; Not Available [facility] 6 11:56:53 759510 etodolac medicatio n Not available Not available Not available 01/23/20162012 89174 RxNorm Comme nt: Creat ed By: Dayna Escudero ;Meira avery Date: 2012 10:40 :22 AM; Not Available [facility] 6 11:56:53 412702 Bextra medicatio n Not available Not available Not available 01/23/20162012 [id number] 0 RxNorm Comme nt: Creat ed By: Dayna Escudero ;Crea avery Date: 2012 10:40 :41 AM; Not Available [facility] 6 11:56:53 [id number] Aleve medicatio n Not available Not available Not available 01/23/20162012 77548 1 RxNorm Comme nt: Creat ed By: Dayna Escudero ;Meira avery Date: 2012 10:40 :02 AM; Not Available [facility] 6 11:56:53 [id number] Substance with sulfonami de structure and antibacte rial mechanism of action (substanc e) medicatio n Not available Not available Not available 01/23/20162012 [id number] 8003 SNOMED Comme nt: Creat ed By: Elmer Cardenas avery Date: 2012 10:41 :00 AM; Not Available [facility] 6 11:56:53 Medications Name Sig Start Date [...] Available Not Available Nasonex 50 mcg/actuati on [facility] Daily active Instructio ns: each nostril;Fr equency: [...] Lovaza 1 gram capsule Daily active Frequency: daily;[facility] cation Descriptio n: omega-3 polyunsatu rated fatty acids; Dosage:4; Route:oral ; refills:0 Not Available Not Available Not Available levocetiriz ine 5 mg tablet Daily active Frequency: daily;[facility] cation Descriptio n: levocetiri zine; Dosage:1; Route:oral ; refills:0 Not Available Not Available Not Available Colcrys 0.6 mg tablet Daily active Frequency: daily;[facility] cation Descriptio n: colchicine ; Dosage:1; Route:oral ; refills:0 Not Available Not Available Not Available Vitals Date Recorded Body height Body mass index (BMI) Body weight Heart rate Systolic blood pressure Diastolic blood pressure Provider Name and Address Organization Details Last Updated DateTime 8 149.86 cm 40.6 kg/m2 59198.0 7 g 80 /min 136 mm[Hg] 83 mm[Hg] Nasima Kady [facility] 8 09:03:19 Date Recorded Body height Body mass index (BMI) Body weight Heart rate Systolic blood pressure Diastolic blood pressure Provider Name and Address Organization Details Last Updated DateTime 8 149.86 cm 42.4 kg/m2 53279.4 g 92 /min 124 mm[Hg] 75 mm[Hg] Tika Toney [facility] 12/17/201 8 12:18:54 Date Recorded Body height Body mass index (BMI) Body weight Provider Name and Address Organization Details Last Updated DateTime 03/31/2023 149.86 cm 40.4 kg/m2 41153.47 g [facility] 03/31/2023 10:29:44 Date Recorded Body height Body mass index (BMI) Body weight Provider Name and Address Organization Details Last Updated DateTime 11/15/2023 149.86 cm 40.4 kg/m2 23902.47 g [facility] 11/15/2023 11:37:28 Social History Question Answer Notes LastModified by Organizat ion Details LastModified Time Tobacco Smoking Status Never [facility]oker [facility] 06/24/2017 11:30:13 Marital Status [email or web address] Informatio n not available 06/24/2017 What Was The Date Of Your Most Recent Tobacco Screening? 11/15/2023 [email or web address] Information not available 11/15/2023 Sex: Unknown Functional Status Question Answer Note LastModified by Organization D etails LastModified Time What is your level of alcohol consumption? None [email or web address] Information not available 06/24/2017 Mental Status None recorded. Family History Relationship Description Onset Age of this Age Resolved Age Notes LastModified by Organization Details LastModified Time Father Family history of malignant neoplasm [email or web address] Not available 06/24 11:30:09 Medical History Condition Response Arthritis Y Acid Reflux (GERD) Y Asthma Y Thyroid Disorder Y High Cholesterol Y Allergies/Hayfever Y Anemia Y Sleep Apnea Y Hypertension Y Gynecological HistoryNo gynecological history recorded. Obstetrics History GPAL:G 0 P 0 0 0 0 Past Encounters Encounter ID Performer Location Encounter Start Date Encounter Closed Date Diagnosis/Indication Diagnosis SNOMED-CT Code Diagnosis ICD10 Code Diagnosis Note [id number] MD ADALID MARLEY JR, [facility] [address] [place] [address] 06/24/2017 10:49:15 06/24/2017 13:02:56 Cyst of kidney 254513214 N28.1 [id number] MD ADALID MARLEY JR, [facility] [address] [place] [address] 07/12/2017 08:33:35 07/12/2017 11:53:10 Acquired renal cystic disease 942396865 N28.1 [id number] SHIRLEY PARR JR, MD [facility] [address] [place] [address] 02/14/2018 11:08:51 02/14/2018 12:25:49 Acquired renal cystic disease 314297951 N28.1 [id number] SHIRLEY PARR JR, MD ADALID [address] [place] [address] 03/31/2023 09:48:35 04/01/2023 05:23:51 Earnest hematuria 070257853 R31.0 Acquired r enal cystic disease 698028490 N28.1 [id number] SHIRLEY PARR JR, MD SURGERY SCHEDULE [address] [place] [address] 05/12/2023 12:06:17 05/12/2023 12:07:10 Earnest hematuria 025589057 R31.0 Acquired r enal cystic disease 929654845 N28.1 [id number] MD ADALID MARLEY JR, [facility] [address] [place] [address] 11/15/2023 11:10:42 11/15/2023 12:19:04 Acquired renal cystic disease 394218225 N28.1 Health Concerns Section Related Observation LastModified by Organization Detai ls LastModified Time None Recorded Concern Status LastModified by Organization Details LastModified Time None Recorded Advance Directives Directive None Recorded Payers Insurance Date Sequence Insurance Name Policy Number Policy Lucero Covered Member ID Lucero Member ID Guarantor Name 06/30/2024 1 [facility] (MEDICARE REPLACEMENT/A DVANTAGE - PPO) [id number] Sofia Eufemia SinLlano [id number] Sofiazeinab Barlow Notes Date Note Type Note Provider [...] to discuss with her primary care physician. MD Praveen [place], [address], [facility] 07/13/2017 06:39:02 02/14/2018 text/html patient is in [...] cysts, right kidney. SHIRLEY PARR JR, MD [facility] [place], [address], [facility] 02/22/2018 20:01:55 03/31/2023 text/html patient is in [...] history of smoking. She denies occupational exposures. MD Praveen MAR[place], [address], [facility] 03/31/2023 18:16:51 05/12/2023 text/html patient is in [...] denies occupational exposures. SHIRLEY PARR JR, MD [address] [place] [address], [address], [facility] 05/12/2023 13:37:46 11/15/2023 text/html patient is in [...] simple renal cysts. SHIRLEY PARR JR, MD [address] [place] [address], [address], [facility] 11/24/2023 08:06:03 OBGyn Episode No OBEpisode recorded.
== END 2024-07-18 23:59 | disposition home or self-care (01) ==
LOC: RT 13:03
PROVIDERS: PCP Nurse Practitioner Family; Visit Provider Nurse Practitioner Family
DX: I08.8 Other rheumatic multiple valve diseases (principal); I10 Essential (primary) hypertension; E78.5 Hyperlipidemia, unspecified; E11.9 Type 2 diabetes mellitus without complications; G47.33 Obstructive sleep apnea (adult) (pediatric)
CPT/HCPCS: 93306

== ENCOUNTER 2024-08-09 13:15 | Outpatient (CLI) | payer MEDICARE, SELFPAY ==
--- OUTSIDE RECORDS SUMMARY | 2024-06-03 17:30 | XMS_ITS ---
Author Organization [facility] D DEVIN Address [address] [facility] [address] [place] [address] Care Team Providers Care Paving Plant Operator Name Role Phone Sina Segura Primary Care Provider Migration, Provider Unavailable Unavailable Allergies Allergen (clinical [...] Drug Allergy Act ivan REASON FOR VISIT [facility] To [facility] Conversion Encounter Medications Medication SIG (Take, Route, Frequency, Duration) Notes Start Date End Date Status Lisinopril 5 MG 1 tab(s) orally once a day for 90 days Active Furosemide 40 MG 1 tab(s) orally once a day for 90 days Active Diclofenac Sodium 75 MG 1 tab(s) orally 2 times a day for 90 days Active Combivent Respimat 20-100 MCG/ACT 1 puff(s) inhaled 4 times a day for 30 days Active Levocetirizine Dihydrochloride 5 MG 1 tab(s) orally once a day (in the evening) for 90 days Active POTASSIUM CHLORIDE (SES-KLMI-OVS M20) 20 MEQ TAKE 1 TABLET BY MOUTH EVERY DAY for 90 *Please review for potential replacement for e-prescription and drug interaction check* Active Cymbalta 60 MG 1 cap(s) orally once a day for 90 days Active Crestor 10 MG 1 tab(s) orally once a day (at bedtime) for 90 days Active Levothyroxine Sodium 100 MCG 1 tab(s) orally once a day for 90 days Active Albuterol Sulfate HFA 108 (90 Base) MCG/ACT 2 puff(s) inhaled every 6 hours as needed for wheezing for 30 days 11/04/2023 Active TUMERICK 500MG ONE TABLET ONCE A DAY *Please review for potential replacement for e-prescription and drug interaction check* Active Nystatin 363641 UNIT/GM 1 nilda applied topically 3 times a day for 14 days 08/25/2021 Active Multivitamin - 1 tab(s) orally once a day for 30 day(s) Active Fluticasone Propionate 50 MCG/ACT 2 sprays nasally once a day for 30 day(s) 10/21/2017 Active Cyanocobalamin-Methylco balamin 5000mcg-1 tablet once a day *Please review and pick correct strength-formulati on from clypd options. If intended option is not shown, discontinue and re-order from Quick Search* Active MiraLax - ORALLY ONCE A DAY *Please review and pick correct strength-formulati on from clypd options. If intended option is not shown, discontinue and re-order from Quick Search* Active Calcium-Vitamin D 600 MG-800 INTL UNITS 1TAB ORALLY TWICE DAILY *Please review and pick correct strength-formulati on from clypd options. If intended option is not shown, [...] Active Encounters Encounter Location Date Provider Diagnosis [facility] PED DEVIN [address] [facility] [address] [place] [address] 06/03/2024 Provider Migration Wheezing R06.2 Assessments Encounter Date Diagnosis (ICD Code) Assessment Notes Treatment Notes Treatment Clinical Notes Section Notes 06/03/2024 Wheezing (ICD-10 - R06.2) Plan Of Treatment Medication Medication Name Sig Start Date Stop Date Notes Furosemide 40 MG 1 tab(s) orally once a day for 90 days Diclofenac Sodium 75 MG 1 tab(s) orally 2 times a day for 90 days Combivent Respimat 20-100 MCG/ACT 1 puff(s) inhaled 4 times a day for 30 days Levocetirizine Dihydrochloride 5 MG 1 tab(s) orally once a day (in the evening) for 90 days POTASSIUM CHLORIDE (MHF-KKMI-QLZ M20) 20 MEQ TAKE 1 TABLET BY MOUTH EVERY DAY for 90 *Please review for potential replacement for e-prescription and drug interaction check* Progress Notes * Sy GILL SDOB: [birth year] (84 yo F)Acc No.[id number]:06/03/2024 Patient: Sy ASIF Provider: Briana roque Migration :1940 A ge:84 Y S ex:Female Date:06/03/2024 Address:[address] [place] [address] [place], [id number] Pcp:Sina Segura Subjective: * Chief Complaints: * [facility] . [facility] * Medical History: * Medications: [...] *Please review and pick correct strength[facility]. If intended option is not shown, discontinue and re-order from Quick Search*, Taking Aspirin Low Dose 81 MG Tablet Delayed Release 1 tab orally once a day , Taking MiraLax - POWDER FOR RECONSTITUTION ORALLY ONCE A DAY , Notes to Pharmacist: *Please review and pick correct strength-formulation from clypd options. If intended option is not shown, discontinue and re-order from Quick Search*, Taking TUMERICK 500MG TABLET ONE TABLET ONCE A DAY , Notes to Pharmacist: *Please review for potential replacement for e-prescription and drug interaction check*, Taking Cyanocobalamin-Methylcobalamin , Notes to Pharmacist: 5000mcg-1 tablet once a day *Please review and pick correct strength-formulation from clypd options. If intended option is not shown, discontinue and re-order from Quick Search*, Taking Multivitamin - Tablet 1 tab(s) orally once a day , Taking Fluticasone Propionate 50 MCG/ACT Suspension 2 sprays nasally once a day , Taking Nystatin 652082 UNIT/GM Powder 1 nilda applied topically 3 [...] 180, Refills 1; S tart POTASSIUM CHLORIDE ([id number] M20) TABLET, EXTENDED RELEASE, 20 MEQ, TAKE 1 TABLET BY MOUTH EVERY DAY, 90, 90 TABLET, Refills 0, Notes to Pharmacist: *Please review for potential replacement for e-prescription and drug interaction check*; S tart Furosemide Tablet, 40 MG, 1 tab(s), orally, once a day, 90 days, 90 Tablet, Refills 1. ? * * Electronic signature of Esther de santiago Migration on 08/09/2024 at 01:19 PM EDT Sign off status: Pending * Provider: Briana roque Migration Date: 0 06/03/2024 Generated for Corrina brito/Kirstin/Keyshaitting on: 0 08/09/2024 01:19 PM EDT
--- OUTSIDE RECORDS SUMMARY | 2024-06-12 09:30 | XMS_ITS ---
Author Organization [facility] Address [address] [place] [address] [place] [id number] Phone Care Team Providers Care Cotton Roll Packer Name Role Phone Montrell CORADO, [facility] [ ] Conditions or Problems No information available. Medications Medication Instructions Start Date Stop Date Generic Name NDC Provider CEPHALEXIN 500 MG CAPS TAKE 1 CAPSULE BY MOUTH ONCE DAILY 6 cephalexin [id number] Tyrell Stock MD DOXYCYCLINE MONOHYDRATE 100 MG CAPS Take 1 capsule by mouth once a day 4 doxycycline monohydrate [id number] Tyrell Stock MD CEPHALEXIN 500 MG CAPS Take 1 capsule by mouth once a day 4 cephalexin [id number] Tyrell Stock MD Medications Administered No information available. Allergies, Adverse Reactions, Alerts No information available. 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 Plan of Care Type Date Detail Appointment 09:15 AM Tyrell Stock MD, [address] [facility], [address], [place], [address], Pending order Continue oral an tibiotics Pending order CMP Pending order CBC with Differe ntial Pending order C- reactive prot ein Pending order Sedimentation Ra te (ESR) Procedures Code Procedure Name Date Entry Date G221 Complex E&M visit add-on (G2) Vital Signs Date Name Value Unit Description BMI (Body Mass Index) 41.01 kg/m2 Bod y Mass Index (Ratio) Body Temperature 97.8 [degF] temperat ure E&M BP Diastolic 20 mm[Hg] blood pressu re, diastolic BP Systolic 117 mm[Hg] blood pressur e, systolic Heart Rate 82 /min pulse rate Height 60 [in_us] height E&M Respiratory Rate 16 /min respirat ory rate E&M Weight Measured 210 [lb_av] weight E& M Weight Measured 210 [lb_av] weight E& M Immunizations No information available. Advance Directives No information available.
--- OUTSIDE RECORDS SUMMARY | 2024-07-06 06:30 | XMS_ITS ---
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 Name Role Phone Sina Segura Primary Care Provider [phone] Flavia Gomez Unavailable [phone] Allergies Allergen (clinical drug ingredient) Drug/Non Drug [...] phentermine Phentermine rash Drug Allergy Act ivan Results Component Value Reference Range Notes LIPID PANEL, STANDARD (7600) Reviewed date:07/10/2024 10:12:41 AM Interpretation: Performing Lab:[facility], [facility] [address], [facility] Jacinto Vazquez Notes/Report: NON-FASTING; NON-FASTING; NON-FASTING FASTING:YES FASTING: YES CHOLESTEROL, TOTAL 185 <200 mg/dL HDL CHOLESTEROL 57 > OR = 50 mg/dL TRIGLYCERIDES 144 <150 mg/dL LDL-CHOLESTEROL 104 Reference range: <100 Desirable range <100 mg/dL for primary prevention; <70 mg/dL for patients with CHD or diabetic patients with > or = 2 CHD risk factors. LDL-C is now calculated using the Ricky-Fields calculation, which is a validated novel method providing better accuracy than the Friedewald equation in the estimation of LDL-C. Ricky SS et al. BOY. 2013;310(19): 3798-1487 (http://education.[employer].SqueezeCMM/faq/JUK868) CHOL/HDLC RATIO 3.2 <5.0 (calc) NON HDL CHOLESTEROL 128 <130 mg/dL (calc) For patients with diabetes plus 1 major ASCVD risk factor, treating to a non-HDL-C goal of <100 mg/dL (LDL-C of <70 mg/dL) is considered a therapeutic option. TSH W/REFLEX TO FT4 (75923) Reviewed date:07/10/2024 10:12:41 AM Interpretation: Performing Lab:[facility] [email or web address], [place]dl[place]G[address] Jacinto Vazquez Notes/Report: NON-FASTING; NON-FASTING; NON-FASTING FASTING:YES FASTING: YES TSH W/REFLEX TO FT4 1.25 0.40-4.50 mIU/L VITAMIN D,25-OH,TOTAL,IA (17 306) Reviewed date:07/10/2024 10:12:41 AM Interpretation: Performing Lab:[facility], [id number] Jacinto Vazquez Notes/Report: NON-FASTING; NON-FASTING; NON-FASTING FASTING:YES FASTING: YES VITAMIN D,25-OH,TOTAL,IA 75 30-100 ng/mL Vitamin D Status 25-OH Vitamin D: Deficiency: <20 ng/mL Insufficiency: 20 - 29 ng/mL Optimal: > or = 30 ng/mL For 25-OH Vitamin D testing on patients on D2-supplementation and patients for whom quantitation of D2 and D3 fractions is required, the QuestAssureD(TM) 25-OH VIT D, (D2,D3), LC/MS/MS is recommended: order code 29228 (patients >2yrs). See Note 1 Note 1 For additional information, please refer to http://education.[employer].SqueezeCMM/faq/AVE741 (This link is being provided for informational/ educational purposes only.) Reason For Referral Reason echo at [facility] Diagnosis 1 Mild aortic stenosis (I35.0) Referral Organization [facility] Referring Provider First Name Flavia Referring Provider Last Name Patricia Referring Provider Speciality Family Pra tessaice Referred Organization [facility] Referred Address [address] [facility] [address] [place], [place],[address],[place] Referred Provider Specialty Diagnostic R adiology General Notes Geetha Rodriguez 2024 04:48:46 PM >sent to [facility] Referral Priority Routine REASON FOR VISIT Yearly Medications Medication SIG (Take, Route, Frequency, Duration) Notes Start Date End Date Status Zepbound 2.5 MG/0.5ML 0.5 mL Subcutaneou s once a week for 28 days 07/06/2024 Active Mucinex 600 MG 1 tab(s) orally every 12 hours Active COQ10 (OBSOLETE) 100 MG 1 CAP(S) ORALLY ONCE A DAY *Please review for potential replacement for e-prescription and drug interaction check* Active Lisinopril 5 MG 1 tab(s) orally once a day for 90 days Active HYDROcodone-Acetaminop hen 7.5-325 MG 1 tab(s) orally every 6 hours Active POTASSIUM CHLORIDE (NNI-ZBCR-WLB M20) 20 MEQ TAKE 1 TABLET BY MOUTH EVERY DAY for 90 *Please review for potential replacement for e-prescription and drug interaction check* Active Furosemide 40 MG 1 tab(s) orally once a day for 90 days Active Klor-Con M20 20 MEQ 1 tablet with food Orally Once a day for 90 days Active Diclofenac Sodium 75 MG 1 tab(s) orally 2 times a day for 90 days Active Levocetirizine Dihydrochloride 5 MG 1 tab(s) orally once a day (in the evening) for 90 days Active Combivent Respimat 20-100 MCG/ACT 1 puff(s) inhaled 4 times a day for 30 days Active Levothyroxine Sodium 100 MCG 1 tab(s) orally once a day for 90 days Active Cymbalta 60 MG 1 cap(s) orally once a day for 90 days Active Albuterol Sulfate HFA 108 (90 Base) MCG/ACT 2 puff(s) inhaled every 6 hours as needed for wheezing for 30 days 11/04/2023 Active Crestor 10 MG 1 tab(s) orally once a day (at bedtime) for 90 days Active Multivitamin - 1 tab(s) orally once a day for 30 day(s) Active TUMERICK 500MG ONE TABLET ONCE A DAY *Please review for potential replacement for e-prescription and drug interaction check* Active Cyanocobalamin-Methylc obalamin 5000mcg-1 tablet once a day *Please review and pick correct strength-formulat ion from [employer] options. If intended option is not shown, discontinue and re-order from Quick Search* Active Fluticasone Propionate 50 MCG/ACT 2 sprays nasally once a day for 30 day(s) 10/21/2017 Active Nystatin 846084 UNIT/GM 1 amaya applied topically 3 times a day for 14 days 08/25/2021 Active Aspirin Low Dose 81 MG 1 tab orally once a day Active MiraLax - ORALLY ONCE A DAY *Please review and pick correct strength-formulat ion from [employer] options. If intended option is not shown, discontinue and re-order from Quick Search* Active Cephalexin 500 MG 1 cap(s) orally once a day Active Calcium-Vitamin D 600 MG-800 INTL UNITS 1TAB ORALLY TWICE DAILY *Please review and pick correct strength-formulat ion from [employer] options. If intended option is not shown, discontinue and re-order from Quick Search* Active Doxycycline Hyclate 100 MG 1 cap(s) orally once a day Active Vital Signs Temperature 97.3 degrees Fahrenheit 07/07/19 25 Blood pressure systolic 110 mm Hg 07/07/19 25 Blood pressure diastolic 72 LL arm mm Hg 025 Heart Rate 80 /min 07/06/2024 Height 59 in 07/06/2024 Weight 200 lbs 07/06/2024 BMI 40.39 kg/m2 07/06/2024 Encounters Encounter Location Date Provider Diagnosis [facility] [address] [place] [address] 07/06/2024 Flavia Patricia Hypothyroidism E03.9 ; Medicare annual wellness visit, subsequent Z00.00 ; HLD (hyperlipidemia) E78.5 ; HTN (hypertension), benign I10 ; Chronic venous insufficiency I87.2 ; Gout M10.9 ; Lymphedema I89.0 ; Right renal mass N28.89 ; Obstructive sleep apnea (adult) (pediatric) G47.33 ; Dependence on other enabling machines and devices Z99.89 ; Mild aortic stenosis I35.0 ; Infection and inflammatory reaction due to other internal joint prosthesis, sequela T84.59XS ; Physical debility R53.81 ; Postmenopausal osteoporosis M81.0 ; BMI 40.0-44.9, adult Z68.41 and Hypokalemia E87.6 Assessments Encounter Date Diagnosis (ICD Code) Assessment Notes Treatment Notes Treatment Clinical Notes Section Notes 07/06/2024 Hypothyroidism (ICD-10 - E03.9) 07/06/2024 Medicare annual wellness visit, subsequent (ICD-10 - Z00.00) wellness recommendations for age reviewed 07/06/2024 HLD (hyperlipidemia) (ICD-10 - E78.5) 07/06/2024 HTN (hypertension), benign (ICD-10 - I10) 07/06/2024 Chronic venous insufficiency (ICD-10 - I87.2) Stable appearing today but continues with lymphedema symptoms, continue use of pump at home 07/06/2024 Gout (ICD-10 - M10.9) 07/06/2024 Lymphedema (ICD-10 - I89.0) 07/06/2024 Right renal mass (ICD-10 - N28.89) urology following 07/06/2024 Obstructive sleep apnea (adult) (pediatric) (ICD-10 - G47.33) Continue CPAP, trial of zepbound for weight loss 07/06/2024 Dependence on other enabling machines and devices (ICD-10 - Z99.89) 07/06/2024 Mild aortic stenosis (ICD-10 - I35.0) No symptoms currently but is minimally active, rec update echo which was last done 201807/06/2024 Infection and inflammatory reaction due to other internal joint prosthesis, sequela (ICD-10 - T84.59XS) Continue FU with Dr Stock 07/06/2024 Physical debility (ICD-10 - R53.81) 07/06/2024 Postmenopausal osteoporosis (ICD-10 - M81.0) will re-order Prolia 07/06/2024 BMI 40.0-44.9, adult (ICD-10 - Z68.41) BMI complicates all aspects of care, also complicated by her severe immobility 07/06/2024 Hypokalemia (ICD-10 - E87.6) Plan Of Treatment Medication Medication Name Sig Start Date Stop Date Notes Zepbound 2.5 MG/0.5ML 0.5 mL Subcutaneou s once a week for 28 days 07/06/2024 Klor-Con M20 20 MEQ 1 tablet with food O rally Once a day for 90 days Treatment Notes Assessment Notes Chronic venous insufficiency Stable appe aring today but continues with lymphedema symptoms, continue use of pump at home Obstructive sleep apnea (adult) (pediatr ic) Continue CPAP, trial of zepbound for weight loss Mild aortic stenosis No symptoms current ly but is minimally active, rec update echo which was last done 2019 Infection and inflammatory r eaction due to other internal joint prosthesis, sequela Continue FU with Dr Stock BMI 40.0-44.9, adult BMI complicates all aspects of care, also complicated by her severe immobility Referrals Referral Date Details 07/06/2024 07/06/2024, echo at [facility], [address] [facility] [address] [address] [facility], [place], [address], Next Appt Details Follow Up: 6 Months, Reason: Progress Notes * Sy BARLOW SDOB: [birth year] (84 yo F)Acc No.[id number]:07/06/2024 Progress Notes Patient: Sy ASIF Provider: ALMA Patel :1940 A ge:84 Y S ex:Female Date:07/06/2024 Address:[address] [place], [place] [id number] Pcp:Sina Segura Subjective: * Chief Complaints: * 1 . Yearly. * HPI: g en: 84-year-old female presents today for annual wellness visit, medication refills, monitoring labs. She continues to be severely physically debilitated, wheelchair dependent and stands only to transfer from one location to another. She does continue to see Dr. Abdirashid KELLER. She sees Dr. Seo in [place], chronic pain management, takes hydrocodone as noted that to 4 times per day. She sees podiatry every 3 to 4 months to care for her feet and infectious disease via telehealth for her chronic joint infection on chronic doxycycline and cephalexin. She has some overflow incontinence at times. Following with Dr Cobos for renal mass. DEXA with OP - on Prolia but only had one injection last year. Continues to have lots of chronic swelling, dryness, discomfort in her lower extremities from chronic lymphedema. No open lesions currently. Using pumps as she has help to do so at home 10 days of migratory abd pain. No change with PO intake. Appetite is good. Recent steroid injection in left shoulder, ortho. * ROS: F UNCTIONAL STATUS: ADLS r equires assistance. R ESPIRATORY: no S hortness of breath. n o C hest congestion.?no C ough. C ARDIOLOGY: no C hest pain. L eg edema y es, c hronic. C ONSTITUTIONAL: no L oss of appetite. n o F ever. W eakness?yes. D ERMATOLOGY: Rash y es, s kin folds. G ASTROENTEROLOGY: no V omiting. n o A bdominal pain. n o D iarrhea. C onstipation y es, c ontrolled on Glycolax. M USCULOSKELETAL: back pain y es. S ee HPI Y es. J oint stiffness?yes. J oint pain y es. N EUROLOGY: no I nsomnia. n o M mickey loss. P SYCHOLOGY: Positive for o n cymbalta, pain. U ROLOGY: no D ifficulty urinating. U rinary incontinence y es. * Medical History: A llergies, osteoarthritis, followed by [facility] [place], Hypercholestrolemia, sleep apnea on CPAP, Hypertension, Asthma, Hypothyroidism, Esophageal reflux, Lap Band, chest pain syndrome with heart catheter done in June 2017 with nonobstructive coronary disease but elevated EDP, Right renal mass, followed by Dr Cobos, Right lung nodule, Mild Aortic Stenosis on echo June 2018, Chronic infection of artificial knee joint. * Surgical History: 3 shoulder surgeries , lap band , total left knee replacement procedure 2008, left broken leg 2013, revision of lt knee replacement 2014, left knee x 2 2016, Left knee revision 2017, Left knee revision- fell and tore tendon 2017, Left knee- infection 05/2019, Rt knee-pateller tendor reattached 07/2020. * Hospitalization/Major Diagno stic Procedure: b roken leg 2014, revision of lt knee replacement-[facility] 2014, [facility] then to [facility] x 5 months 2017, [facility] for surgery- then transferred to [facility] until 09/2019, [facility] [place] 07/2020. * Family History: F ather: . M other: . P aternal Grand Father: . P aternal Grand Mother: . M aternal Grand Father: . M aternal Grand Mother: . Siblings: alive. C rik: alive. 2 brother(s) - healthy. 2 son(s) - healthy. . * Social History: S moking: no A re you a:: nonsmoker. R ecreational drug use: no. Exercise: no. Home smoke detector use: yes. Caffeine: yes, occasional coffee,1 soda daily or less. Living Will: Yes. Alcohol: no. Sexually active: no. Travel outside [place]: no, [place]. 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 * Medications: T aking COQ10 (OBSOLETE) 100 [...] *Please review and pick correct strength-formulation from [employer] options. If intended option is not shown, discontinue and re-order from Quick Search*, Taking Aspirin Low Dose 81 MG Tablet Delayed Release 1 tab orally once a day , Taking MiraLax - POWDER FOR RECONSTITUTION ORALLY ONCE A DAY , Notes to Pharmacist: *Please review and pick correct strength-formulation from [employer] options. If intended option is not shown, discontinue and re-order from Quick Search*, Taking TUMERICK 500MG TABLET ONE TABLET ONCE A DAY , Notes to Pharmacist: *Please review for potential replacement for e-prescription and drug interaction check*, Taking Cyanocobalamin-Methylcobalamin , Notes to Pharmacist: 5000mcg-1 tablet once a day *Please review and pick correct strength-formulation from [employer] options. If intended option is not shown, discontinue and re-order from Quick Search*, Taking Multivitamin - Tablet 1 tab(s) orally once a day , Taking Fluticasone Propionate 50 MCG/ACT Suspension 2 sprays nasally once a day , Taking Nystatin 748895 UNIT/GM Powder 1 amaya applied topically 3 times a day , [...] cap(s) orally once a day , Taking Combivent Respimat 20-100 MCG/ACT Aerosol Solution 1 puff(s) inhaled 4 times a day , Taking Levocetirizine Dihydrochloride 5 MG Tablet 1 tab(s) orally once a day (in the evening) , Taking Diclofenac Sodium 75 MG Tablet Delayed Release 1 tab(s) orally 2 times a day , Taking POTASSIUM CHLORIDE (NGS-GLKW-EPX M20) 20 MEQ TABLET, EXTENDED RELEASE TAKE 1 TABLET BY MOUTH EVERY DAY , Notes to Pharmacist: *Please review for potential replacement for e-prescription and drug interaction check*, Taking Furosemide 40 MG Tablet 1 tab(s) orally once a day , Taking Lisinopril 5 MG Tablet 1 tab(s) orally once a day , Medication List reviewed and reconciled with the patient * Allergies: P enicillin, Naprosyn, Etodolac, MOBIC, BEXTRA, Bactrim: itching, Phentermine: rash, SULFA: itching. Objective: * Vitals: N urse: KJ, Pain: 2 abdomen, Temp: 97.3, RR: 18, HR: 80, BP: 110/72 LL arm, Ht: 59, Wt: 200, BMI:40.39. * Examination: G eneral Examination: General Pleasant and Cooperative, NAD on RA,, Overweight,. Heart: systolic ejection murmur,. Lungs: LCTAB, No wheezes, crackles or rhonchi, Good air movement,. Abdomen: soft, NT/ND, BS present. Skin: mildly erythematous bilat lower extremities but no warmth, mildly tender, no active drainage. Peripheral pulses: n ormal (2+) bilaterally. Extremities: limited ROM both lower extremities and extensive surgical scarring. neck supple,. Psych N ormal Mood/Affect. Assessment: * Assessment: 1. M edicare annual wellness visit, subsequent - Z00.00 (Primary) 2 . H ypothyroidism - E03.9 3 . H LD (hyperlipidemia) - E78.5 4 . H TN (hypertension), benign - I10 5 . C hronic venous insufficiency - I87.2 & #160; 6 . G out - M10.9 7 . L ymphedema - I89.0 8 . R ight renal mass - N28.89 9 . O bstructive sleep apnea (adult) (pediatric) - G47.33 1 0. D ependence on other enabling machines and devices - Z99.89 11. M ild aortic stenosis - I35.0 1 2. 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 P hysical debility - R53.81 1 4. P ostmenopausal osteoporosis - M81.0 1 5. BMI 40.0-44.9, adult - Z68.41 1 6. H ypokalemia - E87.6 Plan: * Treatment: 2. H ypothyroidism L AB: LIPID PANEL, STANDARD (7600) (Collection Date & Time - 07/06/2024 11:28 AM) Value Reference Range T RIGLYCERIDES 144 <150 - mg/dL * C HOLESTEROL, TOTAL 185 <200 - mg/dL * H DL CHOLESTEROL 57 > OR = 50 - mg/dL * L DL-CHOLESTEROL 104 H - mg/dL (calc) * C HOL/HDLC RATIO 3.2 <5.0 - (calc) * N ON HDL CHOLESTEROL 128 <130 - mg/dL (calc) * Annabella Cruz 07/10/2024 10:12:23 AM EDT > Patient informedThis lab was reviewed by Annabella Curz on 07/10/2024 at 10:12 AM EDT ?LAB: TSH W/REFLEX TO FT4 (77675) (Collection Date & Time - 07/06/2024 11:28 AM)* Value Reference Range T SH W/REFLEX TO FT4 1.25 0.40-4.50 - mIU/L * Annabella Cruz 07/10/2024 10:12:23 AM EDT > Patient informedThis lab was reviewed by Annabella Cruz on 07/10/2024 at 10:12 AM EDT ?LAB: VITAMIN D,25-OH,TOTAL,IA ([id number]) (Collection Date & Time - 07/06/2024 11:28 AM)* Value Reference Range V ITAMIN D,25-OH,TOTAL,IA 75 30-100 - ng/mL * Annabella Cruz 07/10/2024 10:12:23 AM EDT > Patient informedThis lab was reviewed by Annabella Cruz on 07/10/2024 at 10:12 AM EDT 3.?HLD (hyperlipidemia)?LAB: LIPID PANEL, STANDARD (7600) (Collection Date & Time - 07/06/2024 11:28 AM)* Value Reference Range T RIGLYCERIDES 144 <150 - mg/dL * C HOLESTEROL, TOTAL 185 <200 - mg/dL * H DL CHOLESTEROL 57 > OR = 50 - mg/dL * L DL-CHOLESTEROL 104 H - mg/dL (calc) * C HOL/HDLC RATIO 3.2 <5.0 - (calc) * N ON HDL CHOLESTEROL 128 <130 - mg/dL (calc) * Annabella Cruz 07/10/2024 10:12:23 AM EDT > Patient informedThis lab was reviewed by Annabella Cruz on 07/10/2024 at 10:12 AM EDT ?LAB: TSH W/REFLEX TO FT4 ([id number]) (Collection Date & Time - 07/06/2024 11:28 AM)* Value Reference Range T SH W/REFLEX TO FT4 1.25 0.40-4.50 - mIU/L * Annabella Cruz 07/10/2024 10:12:23 AM EDT > Patient informedThis lab was reviewed by Annabella Cruz on 07/10/2024 at 10:12 AM EDT ?LAB: VITAMIN D,25-OH,TOTAL,IA ([id number]) (Collection Date & Time - 07/06/2024 11:28 AM)* Value Reference Range V ITAMIN D,25-OH,TOTAL,IA 75 30-100 - ng/mL * Annabella Cruz 07/10/2024 10:12:23 AM EDT > Patient informedThis lab was reviewed by Annabella Cruz on 07/10/2024 at 10:12 AM EDT 4.?Chronic venous insufficiency? Notes: Stable appearing today but continues with lymphedema symptoms, continue use of pump at home ?5.?Right renal mass? Clinical Notes: urology following??6.?Obstructive sleep apnea (adult) (pediatric)? Start Zepbound Solution Auto-injector, 2.5 MG/0.5ML, 0.5 mL, Subcutaneous, once a week, 28 days, 2 mL, Refills 0.?? Notes: Continue CPAP, trial of zepbound for weight loss??7.?Mild aortic stenosis ? Notes: No symptoms currently but is minimally active, rec update echo which was last done 2019? Referral To:Diagnostic Radiology ?Reason:echo at [facility] 8.?Infection and inflammatory reaction due to other internal joint prosthesis, sequela? Notes: Continue FU with Dr Stock??9.?Postmenopausal osteoporosis?LAB: LIPID PANEL, STANDARD (7600) (Collection Date & Time - 07/06/2024 11:28 AM)* Value Reference Range T RIGLYCERIDES 144 <150 - mg/dL * C HOLESTEROL, TOTAL 185 <200 - mg/dL * H DL CHOLESTEROL 57 > OR = 50 - mg/dL * L DL-CHOLESTEROL 104 H - mg/dL (calc) * C HOL/HDLC RATIO 3.2 <5.0 - (calc) * N ON HDL CHOLESTEROL 128 <130 - mg/dL (calc) * Annabella Cruz 07/10/2024 10:12:23 AM EDT > Patient informedThis lab was reviewed by Annabella Cruz on 07/10/2024 at 10:12 AM EDT ?LAB: TSH W/REFLEX TO FT4 ([id number]) (Collection Date & Time - 07/06/2024 11:28 AM)* Value Reference Range T SH W/REFLEX TO FT4 1.25 0.40-4.50 - mIU/L * Annabella Cruz 07/10/2024 10:12:23 AM EDT > Patient informedThis lab was reviewed by Annabella Cruz on 07/10/2024 at 10:12 AM EDT ?LAB: VITAMIN D,25-OH,TOTAL,IA ([id number]) (Collection Date & Time - 07/06/2024 11:28 AM)* Value Reference Range V ITAMIN D,25-OH,TOTAL,IA 75 30-100 - ng/mL * Annabella Cruz 07/10/2024 10:12:23 AM EDT > Patient informedThis lab was reviewed by Annabella Cruz on 07/10/2024 at 10:12 AM EDT Clinical Notes: will re-order Prolia??10.?BMI 40.0-44.9, adult? Notes: BMI complicates all aspects of care, also complicated by her severe immobility??11.?Hypokalemia? Refill Klor-Con M20 Tablet Extended Release, 20 MEQ, 1 tablet with food, Orally, Once a day, 90 days, 90 Tablet, Refills 3.?? * Procedure Codes: G 0439 ANNUAL WELLNESS VST; PPS SUBSQT VST, G8399 PT W/DXA DOCUMENT OR ORDER, 1123F ADVANCED DIRECTIVE - HAS A LIVING WILL, G8417 BMI >=30 CALCUATE W/FOLLOWUP, G8510 NEGATIVE SCREENING F/U NOT REQUIRED, G9903 Pt scrn tbco id as non user, G8752 Most recent systolic blood pressure < 140mmhg, G8754 Most recent diastolic blood pressure < 90mmhg, G9744 PATIENT NOT ELIG D/T ACTIVE DX HTN * Preventive Medicine: Counseling: C are goal follow up plan B [place] management provided Y es. AMAYA Screening: F alls: Future screening for fall risks H ave you had two or more falls in the past year? N o, H ave you had any falls with injury in the past year? N o. Depression Screening: P HQ 2 F eeling down depressed or hopeless N o. Immunizations: i nfluenza H ave you had a flu shot since the most recent October 30 ? Y es. P neumonia vaccine: Status for Older Adults A re you up-to-date on your pneumonia vaccine? yes or no y es, Both Prevnar and Pneumovax. S hingrix U TD. C OVID Completed series. R SV vaccination C ompleted for season. Screening / Special Tests: M ammogram n ot recommended due to age. C olonoscopy D r Valdes. B one mineral Density 2 017 at ACL. L mike Cancer Screening N ot indicated - nonsmoker. * Follow Up: 6 Months * * Sign off status: Completed Addendum: * true * Provider: ALMA Patel Date: 0 07/06/2024 Generated for Corrina brito/Kirstin/Keyshaitting on: 0 08/09/2024 01:20 PM EDT History and Physical Notes * Examination Category Sub-Category Detail Notes Category Not es General Examination Heart: systolic ejection mur mur, Lungs: LCTAB, No wheezes, c rackles or rhonchi, Good air movement, Abdomen: soft, NT/ND, BS pres ent Extremities: limited ROM both low er extremities and extensive surgical scarring Skin: mildly erythematous bilat lower extremities but no warmth, mildly tender, no active drainage Peripheral pulses: normal (2+) bilatera lly neck supple, General Pleasant and Coopera tive, NAD on RA,, Overweight, Psych Normal Mood/Affect Consultation Request Notes Referral Date Referring Provider Referred Provider Not es 07/06/2024 Flavia Gomez , princess at [facility]
--- OUTSIDE RECORDS SUMMARY | 2024-07-06 12:47 | XMS_ITS ---
Author Organization [facility] Address [address] [facility] [address] [place] [address] Care Team Providers Care Personnel Placement Specialist Name Role Phone Sina Segura Primary Care Provider PatriciaFlavia Unavailable [phone] Results Component Value Reference Range Notes Echocardiogram Reviewed date:07/28/2024 12:20:48 PM Interpretation: Performing Lab: Notes/Report: Encounters Encounter Location Date Provider Diagnosis [facility] [address] [place] [address] 07/06/2024 Flavia Patricia Mild aortic stenosis I35.0 Assessments Encounter Date Diagnosis (ICD Code) Assessment Notes Treatment Notes Treatment Clinical Notes Section Notes 07/06/2024 Mild aortic stenosis (ICD-10 - I35.0) Plan Of Treatment No Information Progress Notes * Sy GILL SDOB: 3 (84 yo F)Acc No.[id number]:07/06/2024 Patient: Sy ASIF :1940 A ge:84 Y S ex:Female Address:[facility] [place] [place] [address] Subjective: * Chief Complaints: * * Medical History: * Surgical History: * Hospitalization/Major Diagno stic Procedure: * Medications: Objective: * Vitals: * Physical Examination: Assessment: * Assessment: 1. M ild aortic stenosis - I35.0 Plan: * Treatment: * * Procedure Codes: * true * Date: Generated for Corrina brito/Kirstin/Marli on: 0 08/09/2024 01:30 PM EDT
--- OUTSIDE RECORDS SUMMARY | 2024-08-05 17:30 | XMS_ITS ---
Author Organization [employer] [facility] dicine Address [address] [place] [id number] Care Team Providers Care Embedded Linux Engineer Name Role Phone Migration, Provider Unavailable Unavailable [...] Unknown Drug Allergy Active REASON FOR VISIT [facility] To [facility] Conversion Encounter Medications Medication SIG (Take, Route, Frequency, Duration) Notes Start Date End Date Status traMADol HCl 50 MG 1 tab(s) orally every 4 hours prn Active Levothyroxine Sodium 100 MCG 1 tab(s) orally once a day for 30 day(s) Active Ventolin HFA 108 (90 Base) MCG/ACT 2 puff(s) inhaled 4 times a day for 30 day(s) Active Potassium Chloride 20MEQ 1XDAY PO *Please review and pick correct strength-formulat ion from [facility] options. If intended option is not shown, discontinue and re-order from Quick Search* Active oxyCODONE HCl 5 MG 1 tab(s) orally every 6 hours prn Active Lisinopril 10 MG 1 tab(s) orally once a day for 30 day(s) Active Levocetirizine Dihydrochloride 5 MG 1 tab(s) orally once a day (in the evening) for 30 day(s) Active Lasix 40 MG 1 tab(s) orally once a day for 30 day(s) Active MiraLax - DIRECTED ORALLY ONCE A DAY for 7 DAY(S) *Please review and pick correct strength-formulat ion from [employer] options. If intended option is not shown, discontinue and re-order from Quick Search* Active Magnesium Citrate 125 MG 2 cap(s) orally once a day Active Gabapentin 300 MG 1 cap(s) orally 3 times a day for 30 day(s) Active Fluticasone Propionate 50 MCG/ACT 1 spray(s) intranasally once a day for 30 day(s) Active Diclofenac Sodium 75 MG 1 tab(s) orally 2 times a day for 30 day(s) Active Keflex 500 MG 1 CAP(S) ORALLY EVERY 12 HOURS for 10 DAY(S) *Please review and pick correct strength-formulat ion from [employer] options. If intended option is not shown, discontinue and re-order from Quick Search* Active Cymbalta 60 MG 1 cap(s) orally once a day for 30 day(s) Active Colace 100 MG 1 cap(s) orally 2 times a day Active Caltrate 600+D Plus Minerals 600-800 MG-UNIT 1 tab(s) orally 2 times a day for 30 day(s) Active Cyanocobalamin 5000 MCG 1 TAB(S) ORALLY ONCE A DAY *Please review and pick correct strength-formulat ion from [employer] options. If intended option is not shown, discontinue and re-order from Quick Search* Active Crestor 10 MG 1 tab(s) orally once a day for 30 day(s) Active COQ10 (OBSOLETE) 300 MG 1 CAP(S) ORALLY ONCE A DAY *Please review for potential replacement for e-prescription and drug interaction check* Active Aspirin 81 MG 1 tab(s) orally once a day for 30 day(s) Active Encounters Encounter Location Date Provider Diagnosis [address] [address] 08/05/2024 Provider Migration Plan Of Treatment No Information Progress Notes * Chase BARLOWOB:1940 (84 yo F)Acc No.[id number]:08/05/2024 Patient: Sy ASIF Provider: :1940 A ge:84 Y S ex:Female Date:08/05/2024 Address:[address] [place] [address] Subjective: * Chief Complaints: * 1 . [facility] Conversion Encounter. * Medical History: * Medications: T aking Aspirin 81 MG Tablet Delayed Release 1 tab(s) orally once a day , Taking Caltrate 600+D Plus Minerals 600-800 MG-UNIT Tablet 1 tab(s) orally 2 times a day , Taking Colace 100 MG Capsule 1 cap(s) orally 2 times a day , Taking COQ10 (OBSOLETE) 300 MG CAPSULE 1 CAP(S) ORALLY ONCE A DAY , Notes to Pharmacist: *Please review for potential replacement for e-prescription and drug interaction check*, Taking Crestor 10 MG Tablet 1 tab(s) orally once a day , Taking Cyanocobalamin 5000 MCG TABLET, EXTENDED RELEASE 1 TAB(S) ORALLY ONCE A DAY , Notes to Pharmacist: *Please review and pick correct strength-formulation from [employer] options. If intended option is not shown, discontinue and re-order from Quick Search*, Taking Cymbalta 60 MG Capsule Delayed Release Particles 1 cap(s) orally once a day , Taking Diclofenac Sodium 75 MG Tablet Delayed Release 1 tab(s) orally 2 times a day , Taking Fluticasone Propionate 50 MCG/ACT Suspension 1 spray(s) intranasally once a day , Taking Gabapentin 300 MG Capsule 1 cap(s) orally 3 times a day , Taking Keflex 500 MG CAPSULE 1 CAP(S) ORALLY EVERY 12 HOURS , Notes to Pharmacist: *Please review and pick correct strength-formulation from [employer] options. If intended option is not shown, discontinue and re-order from Quick Search*, Taking Lasix 40 MG Tablet 1 tab(s) orally once a day , Taking Levocetirizine Dihydrochloride 5 MG Tablet 1 tab(s) orally once a day (in the evening) , Taking Lisinopril 10 MG Tablet 1 tab(s) orally once a day , Taking Magnesium Citrate 125 MG Capsule 2 cap(s) orally once a day , Taking MiraLax - POWDER FOR RECONSTITUTION DIRECTED ORALLY ONCE A DAY , Notes to Pharmacist: *Please review and pick correct strength-formulation from [employer] options. If intended option is not shown, discontinue and re-order from Quick Search*, Taking oxyCODONE HCl 5 MG Tablet 1 tab(s) orally every 6 hours , Notes to Pharmacist: prn, Taking Potassium Chloride 20MEQ 1XDAY PO , Notes to Pharmacist: *Please review and pick correct strength-formulation from [employer] options. If intended option is not shown, discontinue and re-order from Quick Search*, Taking Levothyroxine Sodium 100 MCG Tablet 1 tab(s) orally once a day , Taking traMADol HCl 50 MG Tablet 1 tab(s) orally every 4 hours , Notes to Pharmacist: prn, Taking Ventolin HFA 108 (90 Base) MCG/ACT Aerosol Solution 2 puff(s) inhaled 4 times a day * Allergies: B extra, Etodolac, Mobic, Naprosyn, Penicillin, Phentermine, SULFA, LATEX. Objective: * Vitals: Assessment: Plan: * Treatment: * * Electronic signature of Prov ider Migration on 08/09/2024 at 01:24 PM EDT Sign off status: Pending * Provider: Date: 08/05/2024 Generated for Corrina brito/Kirstin/Marli on: 08/09/2024 01:24 PM EDT
--- OUTSIDE RECORDS SUMMARY | 2024-08-09 13:18 | XMS_ITS | Encounter Summary ---
Author Organization [employer] Address [address] [place] [address] Care Team Providers Care Ad Operations Intern Name Role Phone Unavailable Primary Care Provider Unavailabl e Encounter Details Date Type Department Care Team (Late st Contact Info) Description 10/26/2020 Transcribed Document [facility] [place] [address] [place] [address] ProviderMariela MD [address] [place] [address] Social History Tobacco Use Types Packs/Day Years Used Date Smoking Tobacco: Never Assessed Comments Unknown Sex and Gender Information Value Date Recorded Sex Assigned at Female 09/02/2021 8:57 PM CDT Legal Sex Female 6:58 PM CDT Gender Identity Female 09/02/2021 8:57 PM CDT Sexual Orientation Not on file documented as of this encounter Miscellaneous Notes * [employer] Conversion Note - Historical ProviderMD - 10/26/2020 2:06 AM CDT Bro[place] Violence Assessment Entered On: 10/26/2020 3:22 EDT Performed On: 10/26/2020 3:19 EDT by Peggy Rayo RN Broset Violence Assessment Broset Violence Checklist of Symptoms : None Broset Violence Symptoms Subtotal : 0 Broset Violence Symptoms Indicator : Low risk (0) Broset Interventions : [place] precautions for safety used Peggy Rayo RN - 10/26/2020 3:19 EDT Electronically signed by Maureen Cornejo Conversion Dialysis Equipment Technician Cerner at 06/16/2022 8:27 PM CDT documented in this encounter Plan of Treatment Not on file documented as of this encounter Visit Diagnoses Not on filedocumented in this encounter
--- OUTSIDE RECORDS SUMMARY | 2024-08-09 13:18 | XMS_ITS | Encounter Summary ---
Author Organization [employer] Address [address] [place] [address] Care Team Providers Care Binder Lockstitch Name Role Phone Unavailable Primary Care Provider Unavailabl e Encounter Details Date Type Department Care Team (Late st Contact Info) Description 07/14/2019 Transcribed Document [facility] [place] [address] [place] [address] ProviderMariela MD [address] [place] [address] Social History Tobacco Use Types Packs/Day Years Used Date Smoking Tobacco: Never Assessed Comments Unknown Sex and Gender Information Value Date Recorded Sex Assigned at Female 09/02/2021 8:57 PM CDT Legal Sex Female 6:58 PM CDT Gender Identity Female 09/02/2021 8:57 PM CDT Sexual Orientation Not on file documented as of this encounter Miscellaneous Notes * [employer] Conversion Note - Historical ProviderMD - 07/14/2019 1:23 PM CDT Attempt to Treat, PT Entered On: 07/14/2019 14:48 EDT Performed On: 07/14/2019 13:23 EDT by CORI NELSON PT Attempt to Treat Unable to Treat Due To : Patient Refusal Inability to Treat Comment : pt declined PTx in AM and again this PM as she is waiting for my surgeon to call me back, They are trying to send me to [facility] on Wednesday will follow Notification : RN(Marislea)/PTx CORI NELSON PT - 07/14/2019 14:47 EDT documented in this encounter Plan of Treatment Not on file documented as of this encounter Visit Diagnoses Not on filedocumented in this encounter
--- OUTSIDE RECORDS SUMMARY | 2024-08-09 13:18 | XMS_ITS | Encounter Summary ---
Author Organization [employer] Address [address] [place] [address] Care Team Providers Care Molecular Biology Professor Name Role Phone Unavailable Primary Care Provider Unavailabl e Encounter Details Date Type Department Care Team (Late st Contact Info) Description 08/21/2020 Transcribed Document [facility] [place] [facility] [place] [address] ProviderMariela MD [address] [place] [address] Social History Tobacco Use Types Packs/Day Years Used Date Smoking Tobacco: Never Assessed Comments Unknown Sex and Gender Information Value Date Recorded Sex Assigned at Female 09/02/2021 8:57 PM CDT Legal Sex Female 6:58 PM CDT Gender Identity Female 09/02/2021 8:57 PM CDT Sexual Orientation Not on file documented as of this encounter Miscellaneous Notes * [employer] Conversion Note - Historical ProviderMD - 08/21/2020 2:05 PM CDT On Going Discharge Planning Entered On: 08/21/2020 14:06 EDT Performed On: 08/21/2020 14:05 EDT by ADALBERTO BEE, EDDIE Care Management Progress Note Discharge Arrangements : Patient Post-Acute Information Patient Name: SOFIA GILL Gender: Female : [birth year] Age: 80 Years Curas[place] Referral(s): Service: Organization: Business Address: Phone Number: [facility] [address], [place], [address] Discharge Options Discussed with Patient : Discharge transportation, DME, longterm rehabilitation Barriers to Discharge Identified : Clinical Condition of Patient Barriers to Discharge Unresolved : Clinical Condition of Patient Designation of Choice Signed : No Patient Offered Choice/Affiliations Explained : Yes List/Info Provided Pt/Fam/Support Person : Durable medical equipment, care home facilities Were Referrals Sent to Post Acute Providers : Yes Does the Patient have a Floor to SNF Benefit? : No Is the Patient Meeting Medical Necessity : Yes Physician Agreeable to Move Forward with D/C Plan? : Yes Did you Attend Multidisciplinary Rounds? : Yes ADALBERTO BEE RN - 08/21/2020 14:05 EDT Narrative Progress Note Narrative Progress Note : 80 y/o female s/p RIGHT patello tendon repair. ORIf per Dr. Saenz. met with patient at bedside to discuss discharge needs and verify demographics. RRS:Low 26 boost:4 STATUS: patient lives alone. Her family helps them when they can. she needs assistance for adls. PLAN: patient wants to go to Rehab and [facility] Referral faxed via Mike and brooke notified. 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 DME: patient has a wc, showerchair and a walker at home. CM: jevon jon will continue to follow patient TRANS: will need an [facility] to transport patient there. ADALBERTO BEE RN - 08/21/2020 14:05 EDT documented in this encounter Plan of Treatment Not on file documented as of this encounter Visit Diagnoses Not on filedocumented in this encounter
--- OUTSIDE RECORDS SUMMARY | 2024-08-09 13:18 | XMS_ITS | Encounter Summary ---
Author Organization [employer] Address [address] [place] [address] Care Team Providers Care Security Compliance Specialist Name Role Phone Unavailable Primary Care Provider Unavailabl e Encounter Details Date Type Department Care Team (Late st Contact Info) Description 08/26/2020 Transcribed Document [facility] [place] [facility] [place] [address] ProviderMariela MD [address] [place], [place] [address] Social History Tobacco Use Types Packs/Day Years Used Date Smoking Tobacco: Never Assessed Comments Unknown Sex and Gender Information Value Date Recorded Sex Assigned at Female 09/02/2021 8:57 PM CDT Legal Sex Female 6:58 PM CDT Gender Identity Female 09/02/2021 8:57 PM CDT Sexual Orientation Not on file documented as of this encounter Miscellaneous Notes * [employer] Conversion Note - Historical ProviderMD - 08/26/2020 5:00 AM CDT Chart Check - Review Order Profile Entered On: 08/26/2020 4:16 EDT Performed On: 08/26/2020 5:00 EDT by Chinyere Littlejohn RN-PATIENT CARE BEDSIDE NON-EXEMPT Chart Check Powerplans Initiated/Discontinued as Appropriate : Yes All Active Orders Reviewed : Yes Chart Reviewed With : Rayna Carrizales Rn Wilson, Brenna, RN-PATIENT CARE BEDSIDE NON-EXEMPT - 08/26/2020 4:16 EDT documented in this encounter Plan of Treatment Not on file documented as of this encounter Visit Diagnoses Not on filedocumented in this encounter
--- OUTSIDE RECORDS SUMMARY | 2024-08-09 13:18 | XMS_ITS | Encounter Summary ---
Author Organization [employer] Address [address] [place] [address] Care Team Providers Care Presser Hand Name Role Phone Unavailable Primary Care Provider Unavailabl e Encounter Details Date Type Department Care Team (Late st Contact Info) Description 08/26/2020 Transcribed Document [facility] [place] [facility] [place] [address] ProviderMariela MD [facility] [place] [address] Social History Tobacco Use Types Packs/Day [...] Conversion Note - Historical ProviderMD - 08/26/2020 9:00 PM CDT Pain Assessment Entered On: 08/26/2020 23:42 EDT Performed On: 08/26/2020 22:07 EDT by Jessica Ovalle Lpn Intervention Information: acetaminophen Performed by Jessica Ovalle Lpn on 08/26/2020 21:07:00 EDT acetaminophen,1000mg Oral Pain Assessment Pain Assessment : Follow-up assessment Pain Scale Goal : 3 Pain Scale Used : 0-10 Scale Jessica Ovalle Lpn - 08/26/2020 23:42 EDT Pain Scale Intensity : 0 Jessica Ovalle Lpn - 08/26/2020 23:42 EDT Image 4 - Images currently included in the form version of this document have not been included in the text rendition version of the form. documented in this encounter Plan of Treatment Not on file documented as of this encounter Visit Diagnoses Not on filedocumented in this encounter
--- OUTSIDE RECORDS SUMMARY | 2024-08-09 13:18 | XMS_ITS | Encounter Summary ---
Author Organization [employer] Address [address] [place] [address] Care Team Providers Care Marine Engine Machinist Apprentice Name Role Phone Unavailable Primary Care Provider Unavailabl e Encounter Details Date Type Department Care Team (Late st Contact Info) Description 08/27/2020 Transcribed Document [facility] [place] [address] [place] [address] ProviderMariela MD [address] [place], [place] [address] Social History Tobacco Use Types Packs/Day Years Used Date Smoking Tobacco: Never Assessed Comments Unknown Sex and Gender Information Value Date Recorded Sex Assigned at Female 09/02/2021 8:57 PM CDT Legal Sex Female 6:58 PM CDT Gender Identity Female 09/02/2021 8:57 PM CDT Sexual Orientation Not on file documented as of this encounter Miscellaneous Notes * [employer]ner Conversion Note - Historical ProviderMD - 08/27/2020 12:23 PM CDT JUDITH Entered On: 08/27/2020 12:24 EDT Performed On: 08/27/2020 12:23 EDT by DONNA DRIVER MD-INT JUDITH Indication of use for OOCS : Acute Illness OOCS Misuse Suspected : Other Was JUDITH queried : Other Patient Advised to seek OOCS Treatment : Other Treatment to Include Limited Supply of OOCS : Other JUDITH Result : Other JUDITH Other Notes : Per Dr. Hameed office records Patient cancelled on OOCS : Other JUDITH : . DONNA DRIVER MD-INT - 08/27/2020 12:23 EDT Electronically signed by Chantal [facility] Conversion Human Resources Professional Cerner at 06/16/2022 8:06 PM CDT documented in this encounter Plan of Treatment Not on file documented as of this encounter Visit Diagnoses Not on filedocumented in this encounter
--- OUTSIDE RECORDS SUMMARY | 2024-08-09 13:18 | XMS_ITS | Encounter Summary ---
Author Organization [employer] Address [address] [place] [address] Care Team Providers Care Tractor Engine Mechanic Name Role Phone Unavailable Primary Care Provider Unavailabl e Encounter Details Date Type Department Care Team (Late st Contact Info) Description 07/15/2019 Transcribed Document [facility] [place] [facility] [address] ProviderMariela MD [facility] [place] [address] Social History Tobacco Use Types [...] [employer]ner Conversion Note - Historical ProviderMD - 07/15/2019 9:00 AM CDT Pain Assessment Entered On: 07/15/2019 10:41 EDT Performed On: 07/15/2019 10:17 EDT by Marisela Rangel RN Intervention Information: indomethacin Performed by Marisela Rangel RN on 07/15/2019 09:17:00 EDT indomethacin,25mg Oral Pain Assessment Pain Assessment : Follow-up assessment Pain Scale Used : 0-10 Scale Pain Improved by Intervention : Yes Marisela Rangel RN - 07/15/2019 10:41 EDT Pain Scale Intensity : 2 Marisela Rangel RN - 07/15/2019 10:41 EDT Image 4 - Images currently included in the form version of this document have not been included in the text rendition version of the form. documented in this encounter Plan of Treatment Not on file documented as of this encounter Visit Diagnoses Not on filedocumented in this encounter
--- OUTSIDE RECORDS SUMMARY | 2024-08-09 13:18 | XMS_ITS | Encounter Summary ---
Author Organization [employer] Address [address] [place] [address] Care Team Providers Care Armored Service Technician Name Role Phone Unavailable Primary Care Provider Unavailabl e Encounter Details Date Type Department Care Team (Late st Contact Info) Description 07/14/2019 Transcribed Document [facility] [address] [place] [address] Shawanda Barahona MD [address] [place] [address] Social History Tobacco Use Types Packs/Day Years Used Date Smoking Tobacco: Never Assessed Comments Unknown Sex and Gender Information Value Date Recorded Sex Assigned at Female 09/02/2021 8:57 PM CDT Legal Sex Female 6:58 PM CDT Gender Identity Female 09/02/2021 8:57 PM CDT Sexual Orientation Not on file documented as of this encounter Miscellaneous Notes * Cerner Conversion Note - Shawanda Barahona MD - 07/14/2019 10:48 AM EDT Patient: SOFIA GILL Age: 79 years Sex: Female : 1940 Associated Diagnoses: None Author: SHAWANDA BARAHONA MD-INF ID Progress Note CC: Left knee pain Current antimicrobial therapy: Rocephin IV Subjective: 07/04/19; doing well; no events overnight; no fever, rash, sore throat, or diarrhea 07/05/19; doing well; no copmlaints, has low grade fevers, reports brace uncomfortable; no rash, sore throat, or diarrhea ros see hpi 07/06/19; no events overnight, doing well; no fever, rash, sore throat 07/07/19; no events overnight; doing well; walking with physical therapy 07/10/19; doing well; no events overnight; no fever, r tess, sore throat, has constipation, no diarrhea 07/11/19; doing about the same; report some allergy like symptoms, constipation, no rash, no pain in picc line no diarrhea 07/12/19; no events overnight; no fever, rash, sore throat; no diarrhea; walking with physical therapy 07/13/19; doing well; no events overnight; no fever, rash, sore throat, no diarrhea 07/14/19; frustrated about upcoming placement in SNF; no fever, rash, sore throat, no diarrhea ros see hpi Objective Vitals Signs (last 24 hrs) Last Charted Minimum Maximum Temp 97.7 (JULY 13:00) 97.7 (JULY 13:00) 98.4 (JULY 12:00) Mon HR 80 (JULY 13:00) 80 (JULY 13:00) 95 (JULY 12:00) Resp Rate 18 (JULY 13:00) 18 (JULY 12 19:00) 19 (JULY 12 16:00) SBP 100 (JULY 13 07:00) 100 (JULY 13 07:00) 130 (JULY 12:00) DBP L 42 (JULY 13 07:00) L 42 (JULY 13:00) L 59 (JULY 12 23:00) SpO2 96 (JULY 13:00) 96 (JULY 13 07:00) 100 (JULY 12:00) Physical Examination: Gen: Alert, arousable, pleasant HEENT: NC/AT, no ext oral lesions, no scleral icterus RESP:clear regino. CARD: s1s2 no m GI: nondistended; soft/bs+Ve MS: 2+ edema bilaterally knees, rightknee c/d/i, left knee in brace SKIN: No eruptions, lesions, or rashes, PICC in place r Labs:Labs (Last four charted values) WBC 7.1 (JULY 12) 7.2 (JULY 09) 6.3 (JULY 06) 6.5 (JULY 05) HB L 7.7 (JULY 12) L 8.0 (JULY 09) L 7.9 (JULY 06) L 8.2 (JULY 05) HCT L 24.9 (JULY 12) L 25.3 (JULY 09) L 25.1 (JULY 06) L 25.6 (JULY 05) Plt H 422 (JULY 12) H 398 (JULY 09) H 430 (JULY 06) H 475 (JULY 05) Na 138 (JULY 12) L 133 (JULY 09) 136 (JULY 06) 136 (JULY 05) K 4.9 (JULY 12) 4.4 (JULY 09) 4.0 (JULY 06) 4.0 (JULY 05) Cl 103 (JULY 12) L 101 (JULY 09) L 99 (JULY 06) L 99 (JULY 05) CO2 30 (JULY 12) 27 (JULY 09) 32 (JULY 06) H 33 (JULY 05) BUN H 38 (JULY 12) H 30 (JULY 09) H 29 (JULY 06) H 26 (JULY 05) Cr 0.70 (JULY 12) 0.70 (JULY 09) 0.70 (JULY 06) 0.80 (JULY 05) Glu R 104 (JULY 12) H 116 (JULY 09) H 115 (JULY 06) H 113 (JULY 05) Ca 9.0 (JULY 12) 8.4 (JULY 09) 8.6 (JULY 06) 8.4 (JULY 05) PT 11.5 (JULY 12) 11.7 (JULY 09) 11.8 (JULY 06) 11.4 (JULY 03) INR 1.1 (JULY 12) 1.1 (JULY 09) 1.1 (JULY 06) 1.1 (JULY 03) AST 16 (JULY 12) 15 (JULY 09) 12 (JULY 06) 11 (JULY 05) ALT L 11 (JULY 12) 14 (JULY 09) 13 (JULY 06) L 12 (JULY 05) ALK P 49 (JULY 12) 49 (JULY 09) 45 (JULY 06) 45 (JULY 05) T Bili 0.4 (JULY 12) 0.3 (JULY 09) 0.3 (JULY 06) 0.8 (JULY 05) PTN 7.2 (JULY 12) 7.5 (JULY 09) 7.2 (JULY 06) 7.2 (JULY 05) ALB L 2.3 (JULY 12) L 2.6 (JULY 09) L 3.1 (JULY 06) L 2.9 (JULY 05) Micro: [facility]: 06/15 [facility] Blood cultures positive for group B strep and 2/2 bottles SJE: 06/16 fluid aspiration of left knee shows 118,150 white blood cells, GPC 06/16 repeat blood cultures with Group B Strep 06/16 MRSA surveillance culture and pro/pending 06/16 Urine culture in process/pending Rad:No Radiology Results FoundTTE negative for endocarditis Problem list: - 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 S/p synovial fluid aspiration on 06/16, 118,000 WBC, m - Streptococcus agalactiae bacteremia: cultures positive at OSH, repeats also positive here. 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 TTE negative for endocarditis - penicillin allergy: tolerated Keflex and Ceftriaxone Assessment: Despite bacteremia, substantial infeciton patient has been treated for salvage of hardware components and orthopedics has commented that patient would have to have AKA if hardware was removed. Plan is for salvage of limb so long course of iv abx followed by chronic suppression is best option at present RECOMMENDATIONS/PLANS: - continue ceftriaxone 2 gm daily and plan on 8 weeks of therapy with PICC line followed by chronic lifelong oral suppression -physical therapy follow for adverse drug effects; diarrhea, elevated LFT's, fungal superinfection etc manager of case needs to explain why patient cannot stay in LTAC longer and help find SNF that taz feels good about going to documented in this encounter Plan of Treatment Not on file documented as of this encounter Visit Diagnoses Not on filedocumented in this encounter
--- OUTSIDE RECORDS SUMMARY | 2024-08-09 13:18 | XMS_ITS | Encounter Summary ---
Author Organization [email or web address] Address [address] [place] [id number] Care Team Providers Care Typing Section Chief Name Role Phone Unavailable Primary Care Provider Unavailabl e Encounter Details Date Type Department Care Team (Late st Contact Info) Description 08/26/2020 Transcribed Document [facility] [place] [address] ProviderMariela MD [facility] [place] [address] Social History Tobacco Use Types Packs/Day Years Used Date Smoking Tobacco: Never Assessed Comments Unknown Sex and Gender Information Value Date Recorded Sex Assigned at Female 09/02/2021 8:57 PM CDT Legal Sex Female 6:58 PM CDT Gender Identity Female 09/02/2021 8:57 PM CDT Sexual Orientation Not on file documented as of this encounter Miscellaneous Notes * Cerner Conversion Note - Historical Provider, - 08/26/2020 11:49 AM CDT Treatment Intervention, PT Entered On: 08/26/2020 12:00 EDT Performed On: 08/26/2020 11:49 EDT by Gabbie Calderon, Cardiopulmonary Technician General Information, PT Visit Type, PT : Treatment Note Patient Orders : Order Date Order Ordering 08/20/2020 20:23 PT Evaluation and Treatment Ordered By: SOLOMON MCCRACKEN PA-C 08/20/2020 20:23 PT Treatment Instructions Ordered By: SOLOMON MCCRACKEN PA-C 08/20/2020 20:23 PT Treatment Instructions Ordered By: SOLOMON MCCRACKEN PA-C 08/20/2020 20:23 PT Treatment Instructions Ordered By: SOLOMON MCCRACKEN PA-C 08/20/2020 20:23 PT Treatment Instructions Ordered By: SOLOMON MCCRACKEN PA-C 08/20/2020 20:23 PT Treatment Instructions Ordered By: SOLOMON MCCRACKEN PA-C 08/20/2020 20:23 PT Treatment Instructions Ordered By: SOLOMON MCCRACKEN PA-C 08/21/2020 07:24 PT Evaluation and Treatment Ordered By: SOLOMON MCCRACKEN PA-C 08/21/2020 11:06 PT Additional Treatment Ordered By: CHAITANYA SIMON, PT Active Diagnoses : Presence of right artificial knee joint 08/23/2020 12:00 Acute kidney failure, unspecified 08/23/2020 12:00 Acute posthemorrhagic anemia 08/20/2020 12:00 Cardiac arrhythmia, unspecified 08/20/2020 12:00 Essential (primary) hypertension 08/20/2020 12:00 Hypothyroidism, unspecified 08/20/2020 12:00 Obesity, unspecified 08/20/2020 12:00 Other specified postprocedural states 08/20/2020 12:00 Pain in right knee 08/20/2020 12:00 Presence of right artificial knee joint 08/20/2020 12:00 Pure hypercholesterolemia, unspecified 08/20/2020 12:00 Sleep apnea, unspecified 08/20/2020 12:00 Venous insufficiency (chronic) (peripheral) Therapy Diagnosis, PT : reduced mobility Admission Date : 08/20/2020 04:48 Assisted by, PT : Occupational Therapist Personal Devices : Personal Devices No Devices Recorded Assistive Devices : Assistive Devices No Devices Recorded Precautions in Place : Fall prevention measures, Fall prevention measures, high risk, Other: no quad activity permitted and NWB RLE Gabbie Calderon, Cardiopulmonary Technician - 08/26/2020 11:49 EDT General Status Patient Received Status : Long sitting in bed Treatment Start Time : 08/26/2020 11:12 EDT Patient Left Status : Long sitting in bed, RN/PCT informed, All needs met and within reach, Other: kirk stoddard RLE cast RN/PCT Informed Comment : RN okayed PT Treatment End Time : 08/26/2020 11:30 EDT Treatment Time : 18 Minute(s) Gabbie Calderon, Cardiopulmonary Technician - 08/26/2020 11:49 EDT Edu Topics Physical Therapy Education Grid Bed Mobility Training : Verbalizes understanding, Returns demonstration, Needs reinforcement Positioning : Verbalizes understanding, Returns demonstration Role of Physical Therapy : Verbalizes understanding, Returns demonstration Gabbie Calderon, Cardiopulmonary Technician - 08/26/2020 11:49 EDT Plan of Care, PT PT Tx Plan/Goals Established w Patient : Yes Gabbie Calderon, Cardiopulmonary Technician - 08/26/2020 11:49 EDT Assisted Goals Other PT LTG Grid Goal #1 Goal #2 Goal #4 Other : Pt will be able to roll side to side in bed with min assist x1 to ease caregiver burden Pt will be able to transfer supine to sit with mod assist x1 to ease caregiver burden Assess out of bed mobility as pt is able to tolerate Date to Meet : 08/28/2020 EDT 08/28/2020 EDT Goal Status : Progressing, continue Progressing, continue Comment : ceiling lift used for bed MAX Ax2 08/26 Gabbie Calderon, Cardiopulmonary Technician - 08/26/2020 11:49 EDT Gabbie Calderon, Cardiopulmonary Technician - 08/26/2020 11:49 EDT Gabbie Calderon, Cardiopulmonary Technician - 08/26/2020 11:49 EDT Treatment Note Subjective Comment : pt. agreed to therapy, did not c/o pain prior to treatment but stated her R calve and inner thigh was sore. stated that she could not move RLE, and that she could not complete LAQ on LLE due to not having a patella tendon. pt. stated she plans to d/c to rehab. Patient's Response to Treatment : fair. Additional Objective Information : long sitting in bed on arrival, feet elevated transitioned EOB MAXA x2, cued to reach for OT for AUTOMATIC BLOCKER required much assistance to move UE, and total assist to move RLE EOB sat edge of bed for 10 minutes with good sitting balance, CGA worked with OT on UE ther ex, completed 10 reps AROM LLE ankle pumps, april, and B glute sets transitioned supine MAXA x2 total assist to scoot pt. up in bed. left with all needs met and within reach, RLE elevated, HOB elevated Assessment : pt. has difficutly with bed mobiity due to current percautions in place by MD, but pt. feels that she can not move other extremities. pt. is unable to complete quad contraction on LLE, but is still capable of using LLE and UE to transition to sitting. no goals met during treatment. Plan for Treatment : Continue PT POC Gabbie Calderon, Cardiopulmonary Technician - 08/26/2020 11:49 EDT Pain Assessment Pain Scaled Used : 0-10 Pain scale Pain Score Pre-Intervention : 0 Gabbie Calderon Cardiopulmonary Technician - 08/26/2020 11:49 EDT Image 1 - Images currently included in the form version of this document have not been included in the text rendition version of the form. [place] PT Charges BROKER IN CHARGE PT Ther Activities Ea 15 Min-BROKER IN CHARGE : 1 Gabbie Calderon, Cardiopulmonary Technician - 08/26/2020 11:49 EDT documented in this encounter Plan of Treatment Not on file documented as of this encounter Visit Diagnoses Not on filedocumented in this encounter
--- OUTSIDE RECORDS SUMMARY | 2024-08-09 13:18 | XMS_ITS | Encounter Summary ---
Author Organization [employer] Address [address] [place] [address] Care Team Providers Care Quality Consultant Name Role Phone Unavailable Primary Care Provider Unavailabl e Encounter Details Date Type Department Care Team (Late st Contact Info) Description 07/15/2019 Transcribed Document [facility] [place] [facility] [place] [address] ProviderMariela MD [facility] [place] [address] Social History Tobacco Use Types Packs/Day Years Used Date Smoking Tobacco: Never Assessed Comments Unknown Sex and Gender Information Value Date Recorded Sex Assigned at Female 09/02/2021 8:57 PM CDT Legal Sex Female 6:58 PM CDT Gender Identity Female 09/02/2021 8:57 PM CDT Sexual Orientation Not on file documented as of this encounter Miscellaneous Notes * Cerner Conversion Note - Mariela ProviderMD - 07/15/2019 8:31 PM CDT Patient: SOFIA BARLOW Age: 79 years Sex: Female : 1940 Associated Diagnoses: Chronic venous insufficiency; Protein calorie malnutrition, severe; Osteoarthritis; Sepsis; Hypercholesterolemia; Hypoalbuminemia due to protein-calorie malnutrition; Obstructive sleep apnea; Morbid obesity with BMI of 40.0-44.9, adult; Left knee periprosthetic infection status post I&D, debridement, washout and poly-exchange culture positive for group B strep agalactiae; Hypothyroidism; GERD (gastroesophageal reflux disease); Hypertension; Cellulitis Of left knee; Murmur, cardiac; BacteremiaDue to group B streptococcus agalactiae; Acute blood loss anemia status post transfusion of 3 units of packed RBCs; Status post Acute kidney injury Author: DONNA DRIVER MD-INT Basic Information awake alert comfortable, asympt. , pain under control, no trouble w. urination. Review of Systems Constitutional: No fever, No chills. Eye: No discharge, No blurring, No double vision, No visual disturbances. Ear/Nose/Mouth/Throat: No nasal congestion, No sore throat. Respiratory: No shortness of breath, No cough. Cardiovascular: No chest pain, No palpitations. Gastrointestinal: No nausea, No vomiting. Genitourinary: No change in urine stream. Musculoskeletal: Negative. Integumentary: wound stable covered w. clean dressing. Neurologic: Alert and oriented X4. Health Status Allergies: Allergies (10) Active Reaction amLODIPine None Documented valdecoxib None Documented Bextra Itching etodolac Itching Latex Itching Mobic Itching Naprosyn Itching penicillin Shortness of breath phentermine unknown reaction sulfa drugs Itching Current medications: Medications (45) Active Scheduled: (20) aspirin 81 mg chew tab 81 mg 1 Tab, Oral, Daily calcium 500 mg/vit D 200 int unit tab 1 Tab, Oral, BID cefTRIAXone + NaCl 0.9% 100 mL 2 Gram, IV Piggyback, [id number] cyanocobalamin 1,000 mcg tab 5,000 mcg 5 Tab, Oral, Daily docusate sodium 100 mg cap 100 mg 1 Cap, Oral, Daily DULoxetine DR 30 mg cap 60 mg 2 Cap, Oral, Daily gabapentin 300 mg cap 300 mg 1 Cap, Oral, At Bedtime indomethacin 25 mg cap 25 mg 1 Cap, Oral, BID levothyroxine 100 mcg tab 100 mcg 1 Tab, Oral, Daily lisinopril 10 mg tab 10 mg 1 Tab, Oral, Daily loratadine 10 mg tab 10 mg 1 Tab, Oral, Daily magnesium oxide 400 mg tab 400 mg 1 Tab, Oral, BID multiple vitamin (Thera) tab 1 Tab, Oral, Daily pantoprazole EC 40 mg tab 40 mg 1 Tab, Oral, Daily polyethylene glycol 3350 pwd 17 g pkt 17 Gram 1 Packet, Oral, Daily rosuvastatin 10 mg tab 10 mg 1 Tab, Oral, At Bedtime saccharomyces boulardii 250 mg cap 250 mg 1 Cap, Oral, Daily senna/docusate 8.6/50 mg tab 2 Tab, Oral, At Bedtime ubiquinone 50 mg Cap 50 mg 1 Cap, Oral, Daily warfarin 2 mg tab 2 mg 1 Tab, Oral, Daily Continuous: (0) PRN: (25) #NaCl 0.9% *FLUSH* inj 10 mL 10 mL, IV Push, See Comment acetaminophen 325 mg tab 650 mg 2 Tab, Oral, Q4H acetaminophen/HYDROcodone 325/5 mg tab 1.5 Tab, Oral, Q4H albuterol-ipratropium inh 3 mL 3 mL, Nebulized Inhalation, RT_Q6H ALPRAZolam 0.25 mg tab 0.25 mg 1 Tab, Oral, Q6H bisacodyl 10 mg supp 10 mg 1 Supp, Rectal, BID calcium gluconate 1 Gram 10 mL, IV Piggyback, Daily calcium gluconate + NaCl 0.9% 100 mL 2 Gram 20 mL, IV Piggyback, Daily calcium gluconate + NaCl 0.9% 100 mL 2 Gram 20 mL, IV Piggyback, Q12H cloNIDine 0.1 mg tab 0.1 mg 1 Tab, Oral, Q4H fluticasone 0.05% nasal spray 2 [place], Nostrils Both, BID magnesium hydroxide 8% liq 30 mL 30 mL, Oral, Daily magnesium sulfate 2 Gram 50 mL, IV Piggyback, Daily magnesium sulfate 2 Gram 50 mL, IV Piggyback, Q2H metoclopramide 10 mg/2 mL inj 5 mg 1 mL, IV Push, Q6H ondansetron 4 mg/2 mL inj 4 mg 2 mL, IV Push, Q4H potassium chloride 10 mEq 50 mL, IV Piggyback, Q1H potassium chloride CR 20 mEq tab 20 mEq 1 Tab, Oral, Q2H potassium chloride CR 20 mEq tab 60 mEq 3 Tab, Oral, Q2H scopolamine 1.5 mg/72 hr patch 1 Patch, TransDermal, Q3Days senna 8.6 mg tab 8.6 mg 1 Tab, Oral, At Bedtime sodium phosphate 15 mMole 5 mL, IV Piggyback, Daily sodium phosphate 15 mMole 5 mL, IV Piggyback, Q6H tapentadol 50 mg tab 100 mg 2 Tab, Oral, Q6H traZODone 50 mg tab 50 mg 1 Tab, Oral, At Bedtime Problem list: Active Problems (21) Cardiac arrhythmia Cataract Chronic venous insufficiency Constipation Edema - BLE History of obstructive sleep apnea HTN (hypertension) Hx: GERD (gastroesophageal reflux disease) Hypercholesteremia Hypothyroid Kidney cysts right Knee pain, bilateral Lung abnormality right Murmur, cardiac Osteoarthritis Osteoporosis Pain management Redness bilateral lower legs Seasonal allergies Shoulder pain, bilateral Sleep apnea Physical Examination General: Alert and oriented, No acute distress. Eye: Pupils are equal, round and reactive to light, Extraocular movements are intact. HENT: Oral mucosa is moist. Neck: Supple, No carotid bruit, No jugular venous distention, No lymphadenopathy, No thyromegaly. Respiratory: Lungs are clear to auscultation, Breath sounds are equal. Cardiovascular: Normal rate, Regular rhythm, No murmur. Gastrointestinal: Soft, Non-tender, Normal bowel sounds, No organomegaly. Genitourinary: No costovertebral angle tenderness, No inguinal tenderness. Lymphatics: No lymphadenopathy neck, axilla, groin. Musculoskeletal: LLE in a brace. Integumentary: WOUND STABLE. Neurologic: Alert, Oriented, No focal deficits. Psychiatric: Cooperative, Appropriate mood & affect. Review / Management Results review: All Results 07/15/2019 19:00 EDT Systolic Blood Pressure 137 mmHg Diastolic Blood Pressure 52 mmHg LOW Temperature Source Oral Temperature Mode Fahrenheit Temperature, Fahrenheit 98.6 Deg F Clinical Temperature, C 37 Deg C Heart Rate Monitored 95 bpm Respiratory Rate 16 Breaths/Min Oxygen Saturation 100 % . Condition: Stable. Impression and Plan Diagnosis Chronic venous insufficiency - Admitting, Medical. Protein calorie malnutrition, severe - Working, Medical. Osteoarthritis - Admitting, Medical. Sepsis - Admitting, Medical. Hypercholesterolemia - Admitting, Medical. Hypoalbuminemia due to protein-calorie malnutrition - Working, Medical. Obstructive sleep apnea - Admitting, Medical. Morbid obesity with BMI of 40.0-44.9, adult - Admitting, Medical. Left knee periprosthetic infection status post I&D, debridement, washout and poly-exchange culture positive for group B strep agalactiae - Admitting, Medical. Hypothyroidism - Admitting, Medical. GERD (gastroesophageal reflux disease) - Admitting, Medical. Hypertension - Admitting, Medical. Cellulitis Of left knee - Admitting, Medical. Murmur, cardiac - Admitting, Medical. BacteremiaDue to group B streptococcus agalactiae - Admitting, Medical. Acute blood loss anemia status post transfusion of 3 units of packed RBCs - Admitting, Medical. Status post Acute kidney injury - Admitting, Medical. Course: Plan/ cont. current care, pt/ot, encourage oral fluid intake, nutritional support, encourage use of respirometer, motoring blood pressure, renal function, blood glucose, and urine output. cont. on IV antibiotics as per ID recommendations pain control.DVT prophylaxis.Fall risk precautions .Sleep apnea precautions. documented in this encounter Plan of Treatment Not on file documented as of this encounter Visit Diagnoses Not on filedocumented in this encounter
--- OUTSIDE RECORDS SUMMARY | 2024-08-09 13:18 | XMS_ITS | Encounter Summary ---
Author Organization [employer] Address [address] [place] [address] Care Team Providers Care Administrative Support Coordinator Name Role Phone Unavailable Primary Care Provider Unavailabl e Encounter Details Date Type Department Care Team (Late st Contact Info) Description 10/26/2020 Transcribed Document [facility] [place] [facility] [place] [address] ProviderMariela MD [address] [place] [address] Social History Tobacco Use Types Packs/Day [...] Conversion Note - Historical ProviderMD - 10/26/2020 1:45 AM CDT Patient: SOFIA GILL Age: 80 years Sex: Female : 1940 Associated Diagnoses: Healed wound Author: MAN HACKETT MD Basic Information Time seen: Date & time 10/26/2020 01:45:00, Voice recognition / community development technician technology used for some documentation in this chart in attempt to mitigate substantial inefficiencies created by this electronic health record technology. As a result, there may be some typos and/or non-sensical language introduced into the chart that either are overlooked in editing/review and/or that I am unable to correct as patient care needs require me to prioritize my attention to bedside patient care rather than electronic documentation.. . History source: Patient. Arrival mode: Private vehicle. History limitation: None. History of Present Illness Ms. Gill, presents via EMS to room #8, alone. She reports that she is at one of the local rehab facilities where she is undergoing physical therapy for surgery on her right leg. She has had knee replacement surgery done by Dr. Mendenhall and most recently had ligament repair and is supposed to be in a cast. She had a second cast placed about a month ago and has had pain in her right leg for about 2 weeks. Is just gradually intensified. She is complaining mostly of pain in her right heel and where the cast is rubbing in the posterior thigh. One of the nurses at the facility evaluated her and noted that she had decreased capillary refill and called the orthopedic on-call. They informed them to send her to the emergency department to have the cast removed and a mid thigh knee immobilizer placed. The patient presents with lower extremity pain. The onset was 4 weeks ago. The course/duration of symptoms is constant. Type of injury: As stated above.. Location: Right leg. The character of symptoms is pain. The degree at present is moderate. The exacerbating factor is none. The relieving factor is none. Risk factors consist of recent surgery. Prior episodes: none. Therapy today: emergency medical services. Associated symptoms: none. Additional history: See note above.. Review of Systems Constitutional symptoms: No fever, no chills, no weakness, no fatigue, no decreased activity. Skin symptoms: No jaundice, no rash, no pruritus, no abrasions, no petechiae. Eye symptoms: Vision unchanged. ENMT symptoms: No sore throat, no nasal congestion. Respiratory symptoms: No shortness of breath, no orthopnea, no cough. Cardiovascular symptoms: No chest pain, no palpitations. Gastrointestinal symptoms: No abdominal pain, no nausea, no vomiting, no diarrhea, no constipation, no rectal bleeding. Genitourinary symptoms: No dysuria, no hematuria, no vaginal bleeding, no vaginal discharge. Musculoskeletal symptoms: Muscle pain, Joint pain, No back pain, Neurologic symptoms: No headache, no dizziness, no altered level of consciousness, no numbness, no tingling, no weakness. Psychiatric symptoms: No anxiety, no depression. Endocrine symptoms: No polyuria, no polydipsia. Hematologic/Lymphatic symptoms: Bleeding tendency negative, bruising tendency negative, no petechiae. Allergy/immunologic symptoms: No recurrent infections, no impaired immunity. Health Status Allergies: No active allergies have been recorded.. Medications: Per nurse's notes. Immunizations: Up to date. Past Medical/ Family/ Social History Medical history Cardiovascular: hypertension, hyperlipidemia. Respiratory: sleep apnea. Endocrine: hypothyroid. Genitourinary: chronic renal insufficiency. Psychiatric: depression. Musculoskeletal: osteoarthritis. Surgical history: Reviewed as documented in chart. Family history: Reviewed as documented in chart. Social history: Social & Psychosocial Habits No Data Available . Physical Examination Vital Signs Vital Measurements 10/26/2020 2:32 EDT Systolic Blood Pressure 114 mmHg Diastolic Blood Pressure 59 mmHg LOW Temperature Source Oral Temperature Mode Fahrenheit Temperature, Fahrenheit 98.2 Deg F Clinical Temperature, C 36.8 Deg C Peripheral Pulse Rate 92 bpm Respiratory Rate 16 Breaths/Min Oxygen Saturation 96 % Oxygen Therapy Mode Room air . Height and Weight 10/26/2020 2:32 EDT Height Source Stated Height Entry Format [place] Height/Length, [place] (ft) 5 ft Height/Length [place] 0 Inch CLINICALHEIGHT 152.4 cm [place] Body Weight 49.16 kg Weight Source, ED Critical estimated dosing weight Weight Entry Format [place] Weight [place] lb 200 lb CLINICALWEIGHT 90.91 kg Body Surface Area (BSA) 1.87 m2 Body Mass Index 39.1 kg/m2 HI . Oxygen saturation. General: Alert, no acute distress, well nourished, calm, cooperative, well hydrated. Skin: Warm, dry, pink, no pallor, no rash. Head: Normocephalic, atraumatic. Neck: Supple, trachea midline, no tenderness. Eye: Pupils are equal, round and reactive to light, extraocular movements are intact, normal conjunctiva. Ears, nose, mouth and throat: Oral mucosa moist. Cardiovascular: Regular rate and rhythm, No murmur, Normal peripheral perfusion, No edema. Respiratory: Lungs are clear to auscultation, respirations are non-labored, breath sounds are equal, Symmetrical chest wall expansion. Chest wall: No tenderness, No deformity. Back: Nontender, Normal range of motion. Musculoskeletal: Normal ROM, normal strength, no tenderness, no swelling, Ankle/foot: . Gastrointestinal: Soft, Nontender, Non distended, Normal bowel sounds, No organomegaly. Genitourinary: Exam deferred. Neurological: Alert and oriented to person, place, time, and situation, No focal neurological deficit observed. Lymphatics: No lymphadenopathy. Psychiatric: Cooperative, appropriate mood & affect. Medical Decision Making Rationale: Patient had capillary refill of 6 seconds with cold toes. We immediately remove the cast and patient had immediate pinking up of toes good capillary refill and relief of pain. She had a knee immobilizer mid thigh to ankle placed to stabilize the leg until orthopedic can replace the cast.. Documents reviewed: Emergency department nurses' notes, emergency department records, prior records. Orders Include Previous Orders (Selected) Inpatient Orders Ordered (Exam Ordered) US Veins LE Duplex LTD RT: Completed .Automated Differential: Broset Violence Assessment: CBC w/ Auto Diff: CK Creatine Kinase: CMP Comprehensive Metabolic Panel: CRP C-Reactive Protein: D Dimer Quantitative: ED Adult Fall Risk Assessment: ED Adult Triage: ED C-SSRS: ED Clinical Reconciliation: ED assembly machine set up mechanic: ESR Sedimentation Rate Auto: Immobilizer Brace Splint Lower Extremity: Normal Saline Flush: 10 mL, IV Push, 1-Time, PRN: Other (See Comment) Saline Lock Insert: morphine: 4 mg, IV Push, 1-Time. Results review: Lab results : Lab Results 10/26/2020 6:19 EDT D Dimer Quant 1,156 ng/mL HI 10/26/2020 2:12 EDT Sodium Level 140 mmol/L Potassium Level 4.8 mmol/L Chloride Level 105 mmol/L Carbon Dioxide Level 29 mmol/L Anion Gap 11 Glucose Level 110 mg/dL HI Blood Urea Nitrogen 47 mg/dL HI Creatinine Level 0.82 mg/dL (Modified) eGFR >60 mL/min/1.73m2 eGFR NonAfrican >60 mL/min/1.73m2 Bun/Creatinine 57.3 HI Calcium Level 8.2 mg/dL LOW Protein Total 5.4 Gram/dL LOW Albumin Level 2.6 Gram/dL LOW Globulin 2.8 Gram/dL A/G Ratio 0.9 LOW Bilirubin Total 0.2 mg/dL Alk Phos 66 Units/Liter AST 14 Units/Liter ALT 13 Units/Liter CRP 0.6 mg/dL CK 26 Units/Liter (Modified) WBC 12.6 K/uL HI RBC 3.67 Million/uL LOW (Modified) Hgb 11.5 Gram/dL (Modified) Hct 36.3 % (Modified) MCV 98.9 fL HI MCH 31.3 pg MCHC 31.7 Gram/dL LOW Platelet Count 335 K/uL MPV 9.5 fL RDW 13.4 % Neut % 57.6 % Neut # 7.26 K/uL HI Lymph % 24.6 % Lymph # 3.10 K/uL Newport % 8.8 % [place] # 1.11 K/uL HI Eos % 8.4 % HI Eos # 1.06 K/uL HI Baso % 0.3 % Baso # 0.04 K/uL Sed Rate Auto 31 mm/Hr HI (Modified) Slide Review No IG# 0 x10(3)/uL IG% 0 % . Reexamination/ Reevaluation Time: 10/26/2020 07:36:00 . Notes: I have discussed the laboratory findings with the patient and the elevated D-dimer. She states that she is only having pain in her heel as well as where the cast was rubbing her on her thigh. She she is at increased risk of developing a deep vein thrombosis after having a cast on her leg for extended periods the time and only being on baby aspirin. I have informed her that the likelihood of her having blood clot in the leg is significant and needs to be evaluated. I have offered to do a venous duplex of her leg to rule out DVT and she is somewhat hesitant but is agreeable to having that done.. Impression and Plan Diagnosis Healed wound - Discharge, Emergency medicine, Medical Plan Disposition: Patient care transitioned to: Time: 10/26/2020 08:30:00, CARLY JON MD-EMR. Counseled: Patient, Regarding diagnosis, Regarding diagnostic results, Regarding treatment plan. documented in this encounter Plan of Treatment Not on file documented as of this encounter Visit Diagnoses Not on filedocumented in this encounter
--- OUTSIDE RECORDS SUMMARY | 2024-08-09 13:18 | XMS_ITS | Encounter Summary ---
Author Organization [employer] Address [address] [place] [address] Care Team Providers Care Home Health Care Case Manager Name Role Phone Unavailable Primary Care Provider Unavailabl e Encounter Details Date Type Department Care Team (Late st Contact Info) Description 07/15/[address] [facility] [place] [address] [place] [address] ProviderMariela MD [address] [place] [address] Social History Tobacco Use Types Packs/Day Years [...] Conversion Note - Historical ProviderMD - 07/15/2019 2:00 AM CDT Tool Programmer Details Entered On: 07/15/2019 2:33 EDT Performed On: 07/15/2019 2:00 EDT by Georgina Olivo RN Order Details Transport Mode Order Detail : Stretcher/Gurney Isolation Precautions Order Detail : Standard Precautions Order Detail : N/A Oxygen Order Detail : 1 Nurse Collect Order Detail : 1 Lift/Transfer : Moderate assist Central Line Order Detail : Yes Room Service : Appropriate Arterial Line : No Georgina Olivo RN - 07/15/2019 2:33 EDT documented in this encounter Plan of Treatment Not on file documented as of this encounter Visit Diagnoses Not on filedocumented in this encounter
--- OUTSIDE RECORDS SUMMARY | 2024-08-09 13:18 | XMS_ITS | Encounter Summary ---
Author Organization [employer] Address [address] [place] [address] Care Team Providers Care Monotypist Name Role Phone Unavailable Primary Care Provider Unavailabl e Encounter Details Date Type Department Care Team (Late st Contact Info) Description 08/26/2020 Transcribed Document [facility] [place] [facility] [place] [address] ProviderMariela MD [facility] [place] [address] Social History Tobacco Use Types [...] Conversion Note - Historical ProviderMD - 08/26/2020 4:15 PM CDT Patient: SOFIA BARLOW Age: 80 years Sex: Female : 1940 Associated Diagnoses: Acute blood loss anemia; Acute kidney injury; Right knee pain; S/p R TKA revision; Status post quadriceps tendon repair; HTN (hypertension); Hypercholesteremia; Hypothyroid; Chronic venous insufficiency; A. fib; Sleep apnea; Obesity (BMI 30-39.9) Author: DONNA DRIVER MD-INT This is an invalid note Physical Examination Genitourinary: . Psychiatric: . Review / Management Condition: Stable. Impression and Plan Electronically signed by Nikunj Cornejo Conversion Operational Communication Chief Cerner at 06/16/2022 8:23 PM CDT documented in this encounter Plan of Treatment Not on file documented as of this encounter Visit Diagnoses Not on filedocumented in this encounter
--- OUTSIDE RECORDS SUMMARY | 2024-08-09 13:18 | XMS_ITS | Encounter Summary ---
Author Organization [employer] Address [address] [place] [address] Care Team Providers Care Donations Attendant Name Role Phone Unavailable Primary Care Provider Unavailabl e Encounter Details Date Type Department Care Team (Late st Contact Info) Description 08/26/2020 Transcribed Document [facility] [place] [facility] [place] [address] ProviderMariela MD [address] [place] [address] Social History Tobacco Use Types [...] Cerner Conversion Note - Mariela ProviderMD - 08/26/2020 10:04 AM CDT UM Authorization Entered On: 08/26/2020 10:05 EDT Performed On: 08/26/2020 10:04 EDT by KARAN WATSON RN-Utilization Review Primary Insurance Authorization Authorization and Policy Numbers : Insurance 1 Health Plan: [facility] [employer] Policy Number: [id number] Authorization Number: [id number] Insurance Primary Name : [employer] Policy Number: [id number] Authorization Status-Primary : Admit approved Reference Number-Primary : [id number] Authorization Number-Primary : [id number] Number of Days Authorized-Primary : 0 Day(s) Authorized Service Begin Date-Primary : 08/20/2020 EDT Authorized Service End Date-Primary : 08/20/2020 EDT Authorization Comments-Primary : Uploaded cont stay clinicals (08/22-08/26/20) to [facility] [employer] via [employer]. Historical Authorization Comments-Primary : Comment 1: Uploaded cont stay clinicals (08/21/20) to [facility] [employer] via [employer]. (KARAN WATSON, RN-Utilization Review 08/21/2020 08:36) Comment 2: Note on [facility] website:Patient was initially scheduled for Right Patellar Tendon Reconstruction 08/20/20, outpatient which did not require an auth.Due to further physician review with additional providers over the weekend the surgery has been changed to Right Total Knee Revision with Patellar Tendon Reconstruction 08/20/20, inpatient. A much larger implant will be inserted due to instability.Patient is currently at an assisted living facility. She is no longer ambulating, wheelchair bound requiring max assistance with transfer. She is in severe pain and unable to care for herself due to the need for surgery. (TIESHA AQUINO RN-Utilization Review 08/19/2020 15:20) Comment 3: [facility] Medicare approved per website for 1 day (TIESHA AQUINO RN-Utilization Review 08/19/2020 15:14) KARAN WATSON, EDDIE-Utilization Review - 08/26/2020 10:04 EDT documented in this encounter Plan of Treatment Not on file documented as of this encounter Visit Diagnoses Not on filedocumented in this encounter
--- OUTSIDE RECORDS SUMMARY | 2024-08-09 13:18 | XMS_ITS | Encounter Summary ---
Author Organization [employer] Address [address] [place] [address] Care Team Providers Care Eligibility Counselor Name Role Phone Unavailable Primary Care Provider Unavailabl e Encounter Details Date Type Department Care Team (Late st Contact Info) Description 08/27/2020 Transcribed Document [facility] [place] [address] [place] [address] ProviderMariela MD [address] [place], [place] [id number] Social History Tobacco Use Types Packs/Day Years [...] Conversion Note - Historical ProviderMD - 08/27/2020 5:00 AM CDT Chart Check - Review Order Profile Entered On: 08/27/2020 6:50 EDT Performed On: 08/27/2020 5:00 EDT by Jesisca Ovalle Lpn Chart Check Powerplans Initiated/Discontinued as Appropriate : Yes All Active Orders Reviewed : Yes Jessica Ovalle Lpn - 08/27/2020 6:50 EDT documented in this encounter Plan of Treatment Not on file documented as of this encounter Visit Diagnoses Not on filedocumented in this encounter
--- OUTSIDE RECORDS SUMMARY | 2024-08-09 13:18 | XMS_ITS | Patient Health Record ---
Author Organization [facility] Address [address] [place] [address] Care Team Providers Care Diagnostic Tech Name Role Phone Sina Segura Primary Care Provider Flavia Gomez Unavailable [phone] Migration, Provider Unavailable Unavailable Allergies Allergen (clinical [...] ivan Results Component Value Reference Range Notes VITAMIN D,25-OH,TOTAL,IA (17 306) Reviewed date:07/10/2024 10:12:41 AM Interpretation: Performing Lab:[facility], [facility] [id number] [facility]npdPP[address] Jacinto Vazquez Notes/Report: NON-FASTING; NON-FASTING; NON-FASTING FASTING:YES [...] D, (D2,D3), LC/MS/MS is recommended: order code 66053 (patients >2yrs). See Note 1 Note 1 For additional information, please refer to http://education.Cloud Floor/faq/HCV833 (This link is being provided for informational/ educational purposes only.) TSH W/REFLEX TO FT4 (78591) Reviewed date:07/10/2024 10:12:41 AM Interpretation: Performing Lab:[facility], [email or web address] [address], [place] Jacinto Vazquez Notes/Report: NON-FASTING; NON-FASTING; NON-FASTING FASTING:YES FASTING: YES TSH W/REFLEX TO FT4 1.25 0.40-4.50 mIU/L LIPID PANEL, STANDARD (7600) Reviewed date:07/10/2024 10:12:41 AM Interpretation: Performing Lab:[email or web address] [id number], [place] Jacinto Vazquez Notes/Report: NON-FASTING; NON-FASTING; NON-FASTING FASTING:YES FASTING: YES CHOLESTEROL, TOTAL 185 <200 mg/dL HDL CHOLESTEROL 57 > OR = 50 mg/dL TRIGLYCERIDES 144 <150 mg/dL LDL-CHOLESTEROL 104 Reference range: <100 Desirable range <100 mg/dL for primary prevention; <70 mg/dL for patients with CHD or diabetic patients with > or = 2 CHD risk factors. LDL-C is now calculated using the Ricky-Diamond calculation, which is a validated novel method providing better accuracy than the Friedewald equation in the estimation of LDL-C. Ricky FORMAN et al. BOY. 2013;310(19): 5675-4365 (http://education.DreamFactory Software.Lumus/faq/KXM012) CHOL/HDLC RATIO 3.2 <5.0 (calc) NON HDL CHOLESTEROL 128 <130 mg/dL (calc) For patients with diabetes plus 1 major ASCVD risk factor, treating to a non-HDL-C goal of <100 mg/dL (LDL-C of <70 mg/dL) is considered a therapeutic option. Echocardiogram Reviewed date:07/28/2024 12:20:48 PM Interpretation: Performing Lab: Notes/Report: Medications Medication SIG (Take, Route, Frequency, Duration) Notes Start Date End Date Status Zepbound 2.5 MG/0.5ML 0.5 mL Subcutaneou s once a week for 28 days 07/06/2024 Active Multivitamin - 1 tab(s) orally once a day for 30 day(s) Active Furosemide 40 MG 1 tab(s) orally once a day for 90 days Active Aspirin Low Dose 81 MG 1 tab orally once a day Active Combivent Respimat 20-100 MCG/ACT 1 puff(s) inhaled 4 times a day for 30 days Active MiraLax - ORALLY ONCE A DAY *Please review and pick correct strength-formulat ion from [employer] options. If intended option is not shown, discontinue and re-order from Quick Search* Active Levocetirizine Dihydrochloride 5 MG 1 tab(s) orally once a day (in the evening) for 90 days Active Cephalexin 500 MG 1 cap(s) orally once a day Active Levothyroxine Sodium 100 MCG 1 tab(s) orally once a day for 90 days Active Calcium-Vitamin D 600 MG-800 INTL UNITS 1TAB ORALLY TWICE DAILY *Please review and pick correct strength-formulat ion from [employer] options. If intended option is not shown, discontinue and re-order from Quick Search* Active Cymbalta 60 MG 1 cap(s) orally once a day for 90 days Active Mucinex 600 MG 1 tab(s) orally every 12 hours Active Albuterol Sulfate HFA 108 (90 Base) MCG/ACT 2 puff(s) inhaled every 6 hours as needed for wheezing for 30 days 11/04/2023 Active Doxycycline Hyclate 100 MG 1 cap(s) orally once a day Active Crestor 10 MG 1 tab(s) orally once a day (at bedtime) for 90 days Active COQ10 (OBSOLETE) 100 MG 1 CAP(S) ORALLY ONCE A DAY *Please review for potential replacement for e-prescription and drug interaction check* Active Fluticasone Propionate 50 MCG/ACT 2 sprays nasally once a day for 30 day(s) 10/21/2017 Active Lisinopril 5 MG 1 tab(s) orally once a day for 90 days Active HYDROcodone-Acetaminop hen 7.5-325 MG 1 tab(s) orally every 6 hours Active Nystatin 109075 UNIT/GM 1 nilda applied topically 3 times a day for 14 days 08/25/2021 Active Klor-Con M20 20 MEQ 1 tablet with food Orally Once a day for 90 days Active TUMERICK 500MG ONE TABLET ONCE A DAY *Please review for potential replacement for e-prescription and drug interaction check* Active Diclofenac Sodium 75 MG 1 tab(s) orally 2 times a day for 90 days Active Cyanocobalamin-Methylc obalamin 5000mcg-1 tablet once a day *Please review and pick correct strength-formulat ion from [employer] options. If intended option is not shown, discontinue and re-order from Quick Search* Active Immunizations Vaccine Route Administration Date Status Comme nts Fluvirin--Influenza vaccine 3+ year IM Intramuscular 12/13/2006 Administered Fluvirin--Influenza vaccine 3+ year IM Intramuscular 01/13/2008 Administered Fluvirin--Influenza vaccine 3+ year IM Intramuscular 11/13/2011 Administered Fluzone High Dose IM Intramuscular 11/09/2019 Administered Fluzone High Dose IM Intramuscular 01/14/2023 Administered H1N1 Vaccine IM Intramuscular 02/14/2009 Administered Influenza (Fluzone)--Medicare only IM Intramuscular 12/05/2014 Administered Influenza (Fluzone)--Medicare only IM Intramuscular 10/21/2017 Administered Arexvy IM Intramuscular 01/14/2023 Administered Influenza-Fluzone 3+years (NON-MEDICARE) IM Intramuscular 11/13/2015 Administered Prevnar PCV-13 (Pneumococcal conjugate 13) IM Intramuscular 04/08/2017 Administered SHINGRIX IM Intramuscular 01/22/2019 Administered Zostavax (Shingles) SC Subcutaneous 12/07/2007 Administere d Problems Problem Type SNOMED Code ICD Code Onset Dates Problem Status W/U Status Risk Notes Problem 72093827 Obstructive slee p apnea (adult) (pediatric) (G47.33) Active confirmed Problem 184864948 Other chronic postprocedural pain (G89.28) Active confirmed Problem 090706383 Other seasonal allergic rhinitis (J30.2) Active confirmed Problem 212559504 Other allergic rhinitis (J30.89) Active confirmed Problem 591750853 Pain in left kne e (M25.562) Active confirmed Problem Sciatica (37019256) Sciatica, unspecified side (M54.30) Active confirmed Problem 95380858 Postmenopausal bleeding (N95.0) Active confirmed Problem 646755855 Infection and inflammatory reaction due to other internal joint prosthesis, sequela (T84.59XS) Active confirmed Problem 668097647647 Presence of unspecified artificial knee joint (Z96.659) Active confirmed Problem 298779163 Dependence on other enabling machines and devices (Z99.89) Active confirmed Problem 30964969 HLD (hyperlipidemia) (E78.5) Active confirmed Problem 243870181 GERD (gastroesophageal reflux disease) (K21.9) Active confirmed Problem 97559719 Hypothyroidism (E03.9) Active confirmed Problem 67808811 Gout (M10.9) Active confirmed Problem 53970251 Venous insufficiency (I87.2) Active confirmed Problem 84523298 HTN (hypertension), benign (I10) Active confirmed Problem 13857869 Hypokalemia due to loss of potassium (E87.6) Active confirmed Problem 954391493 Lymphedema (I89.0) Active confirmed Problem 851688364 BMI 40.0-44.9, adult (Z68.41) Active confirmed Problem 03718785662225 Arthritis involving multiple sites (M12.9) Active confirmed Problem 7078059267201 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.10) Active confirmed Problem 482669003454025 Primary osteoarthritis of right knee (M17.11) Active confirmed Problem 209967450 Recurrent falls (R29.6) Active confirmed Problem 188386440 Neuropathic pain (M79.2) Active confirmed Problem 725308268 Hypoalbuminemia (E88.09) Active confirmed Problem 049508827077149 Internal derangement of left knee (M23.92) Active confirmed Problem 776498010 Falls frequently (R29.6) Active confirmed Problem 967417056 Nonrheumatic aortic valve stenosis (I35.0) Active confirmed Problem 53357913 Chronic venous insufficiency (I87.2) Active confirmed Problem 596988198 Left anterior kn ee pain (M25.562) Active confirmed Problem 00683971 Physical debilit y (R53.81) Active confirmed Problem 694564065 Right renal mass (N28.89) Active confirmed Problem 143788719 Acute seasonal allergic rhinitis (J30.2) Active confirmed Problem 032870794 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) Active confirmed Problem 62829057 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) Active confirmed Problem 528098878 Seasonal allergi c rhinitis, unspecified trigger (J30.2) Active confirmed Problem 74824795 Mild aortic stenosis (I35.0) Active confirmed Problem 061032062 Right lower lobe pulmonary nodule (R91.1) Active confirmed Problem Osteopenia following menopause (disorder) (649939643) 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) Active confirmed Problem 8040446 Hypoproteinemia (E77.8) Active confirmed Problem Aortic stenosis, severe (I35.0) Active confirmed Problem 731967273149148 Internal derangement of right knee (M23.91) Active confirmed Problem 480342094 Infected hardwar e in left lower extremity, sequela (T84.7XXS) Active confirmed Problem 526100877 Obesity, morbid (more than 100 lbs over ideal weight or BMI > 40) (E66.01) Active confirmed Vital Signs Heart Rate 80 /min 07/06/2024 Temperature 97.3 degrees Fahrenheit 07/06/2024 Blood pressure diastolic 72 LL arm mm Hg 07/06/2024 Height 59 in 07/06/2024 Blood pressure systolic 110 mm Hg 07/06/2024 Weight 200 lbs 07/06/2024 BMI 40.39 kg/m2 07/06/2024 Encounters Encounter Location Date Provider Diagnosis [facility] [address] [facility] [address] [place] [address] 06/03/2024 Provider Migration Wheezing R06.2 [facility] [address] [facility] [address] [place] [address] 10/26/2023 Flavia Gomez Wheezing R06.2 ; Multiple lipomas D17.9 ; Chronic venous insufficiency I87.2 ; Lymphedema I89.0 and Physical debility R53.81 [facility] [address] [facility] [address] [place], [place] [address] 02/17/2024 Flavia Gomez Wheezing R06.2 ; IFG (impaired fasting glucose) R73.01 and Obesity, morbid (more than 100 lbs over ideal weight or BMI > 40) E66.01 [facility] [address] [facility] [address] [place] [address] 07/06/2024 Flavia Gomez Hypothyroidism E03.9 ; Medicare [...] BMI 40.0-44.9, adult Z68.41 and Hypokalemia E87.6 [facility] [address] [facility] [address] [place] [address] 11/04/2023 Flavia Gomez Wheezing R06.2 [facility] [address] [facility] [address] [place] [address] 07/06/2024 Flavia Gomez [facility] [address] [place] [address] 07/06/2024 Flavia Gomez Mild aortic stenosis I35.0 [facility] [address] [facility] [address] [place] [address] 07/25/2024 Flavia Gomez [facility] [address] [facility] [address] [place] [address] 07/28/2024 Sina Segura [facility] [address] [address] 07/28/2024 Flavia Gomez Assessments Encounter Date Diagnosis (ICD Code) Assessment Notes Treatment Notes Treatment Clinical Notes Section Notes 10/26/2023 Wheezing (ICD-10 - R06.2) trial of Combivent inhaler PRN, return precautions reviewed 10/26/2023 Multiple lipomas (ICD-10 - D17.9) exam is most c/w multiple lipomas...rec watchful waiting 11/04/2023 Wheezing (ICD-10 - R06.2) 02/17/2024 Wheezing (ICD-10 - R06.2) trial of Combivent inhaler PRN, return precautions reviewed 02/17/2024 IFG (impaired fasting glucose) (ICD-10 - R73.01) Rec actual A1C with next set of labs but to this point has only had minor elevations 06/03/2024 Wheezing (ICD-10 - R06.2) 07/06/2024 Hypothyroidism (ICD-10 - E03.9) 07/06/2024 Medicare annual wellness visit, subsequent (ICD-10 - Z00.00) wellness recommendations for age reviewed 07/06/2024 Mild aortic stenosis (ICD-10 - I35.0) 07/06/2024 HLD (hyperlipidemia) (ICD-10 - E78.5) 02/17/2024 Obesity, morbid (more than 100 lbs over ideal weight or BMI > 40) (ICD-10 - E66.01) complicates all aspects of care but insurance does not cover GLP1I for weight loss in this case...no h/o CAD or CVA. 10/26/2023 Chronic venous insufficiency (ICD-10 - I87.2) Stable appearing today but continues with lymphedema symptoms, continue pump at home and outpatient therapy as needed 10/26/2023 Lymphedema (ICD-10 - I89.0) 07/06/2024 HTN (hypertension), benign (ICD-10 - I10) 07/06/2024 Chronic venous insufficiency (ICD-10 - I87.2) Stable appearing today but continues with lymphedema symptoms, continue use of pump at home 10/26/2023 Physical debility (ICD-10 - R53.81) continues to require use of PMD and tolerates use well, repairs needed 07/06/2024 Gout (ICD-10 - M10.9) 07/06/2024 Lymphedema [...] severe immobility 07/06/2024 Hypokalemia (ICD-10 - E87.6) 02/17/2024 Other Plan Of Treatment Pending Test Test Name Order Date N-CBC 03/15/2006 X-Lipid Profile 05/23/2007 X-Lipid Profile 03/15/2006 Ultrasound : Kidneys, Bilateral 04/04/19 Urinalysis 08/14/2014 N-TSH (Thyroid Stimulating Hormone) 04/30 N-CMP 05/23/2007 N-CMP 03/15/2006 Physical Therapy 05/23/2007 Physical Therapy 05/28/2006 Physical Therapy 01/28/2022 Physical Therapy 02/14/2018 EKG 08/08/2018 Occupational Therapy : Eval & Treatment 02/14/2018 H-CBC with AUTO DIFF 07/17/2013 H-CBC with AUTO DIFF 06/07/2014 H-IRON & TIBC 11/16/2013 H-VITAMIN B12 11/16/2013 H-FOLATE, SERUM 11/16/2013 H-FERRITIN 11/16/2013 H-PT/INR 10/05/2016 H-CMP 06/07/2014 H-CMP 09/09/2015 H-BUN 07/05/2017 H-CREATININE SERUM 07/05/2017 H-LIPID PANEL 07/17/2013 H-LIPID PANEL 01/10/2008 H-LIPID PANEL 09/09/2015 H-LIPID PANEL 06/07/2014 H-TSH 09/09/2015 H-TSH 06/07/2014 H-TSH 07/17/2013 H-VIT D, 25-HYDROXY 07/17/2013 H-VIT D, 25-HYDROXY 06/07/2014 H-PERIPHERAL SMEAR REVIEW 06/07/2014 C-CBC 10/24/2009 C-CMP 10/24/2009 C-LIPID PANEL 10/24/2009 C-TSH 10/24/2009 C-VITAMIN D, 1,25-DIHYDROXY 10/24/2009 H-PTT 10/05/2016 Ultrasound : Soft Tissue 11/15/2015 Physical Therapy : Lymphedema 02/09/2023 M-Complete Blood Count Auto Diff 023 M-Complete Blood Count Auto Diff 019 M-Partial Thromboplastin Time 08/08/2018 M-Comprehensive Metabolic Panel 07/08/19 19 M-Comprehensive Metabolic Panel 10/21/19 23 M-Uric Acid 10/20/2022 M-Uric Acid 07/07/2018 M-Lipid Panel 07/07/2018 M-Lipid Panel 10/20/2022 M-Thyroid Stimulating Hormone 10/20/2022 M-Thyroid Stimulating Hormone 07/07/2018 M-Vitamin D 25 Hydroxy 07/07/2018 M-Vitamin D 25 Hydroxy 10/20/2022 Future Test Test Name Order Date H-CMP 11/10/2010 H-LIPID PANEL 11/10/2010 Insurance Providers Payer Name Payer Address Payer Phone Subscriber Number Group Number Insured Name Patient Relationship to Insured Coverage Start Date Coverage End Date [employer] MED[employer]ARE [address] [address] [place] [address] [id number] Yen Sy Self - patient is the insured Medical (General) History Medical History History ICD Code allergies [facility], [facility]ia sleep apnea on CPAP hypertension asthma Hypothyroidism Esophageal reflux Lap 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 with nonobstructive coronary disease but elevated EDP Right renal mass, followed by Dr Cruz h Right lung nodule Mild Aortic Stenosis on echo June 2018 Chronic infection of artificial knee jarrell nt Surgical History Surgery Date(Month/Year) 3 shoulder surgeries lap band total left knee replacement procedure 18 11 left broken leg 2014 revision of lt knee replacement 2015 left knee x 2 2017 Left knee revision 2018 Left knee revision- fell and tore tendon 2018 Left knee- infection 05/2019 Rt knee-pateller tendor reattached 08/18 21 Hospitalization History Reason Date(Month/Year) [facility] [place] 07/2020 [facility] for surgery- then transferred to [facility] 2018 revision of lt knee replacement-[facility] 2015 broken leg 2014
--- OUTSIDE RECORDS SUMMARY | 2024-08-09 13:18 | XMS_ITS | Encounter Summary ---
Author Organization [employer] Address [address] [place] [address] Care Team Providers Care Galvanizer Name Role Phone Unavailable Primary Care Provider Unavailabl e Encounter Details Date Type Department Care Team (Late st Contact Info) Description 08/26/2020 Transcribed Document [facility] [place] [facility] [place] [address] ProviderMariela MD [facility] [place] [address] Social History Tobacco Use Types [...] Conversion Note - Historical ProviderMD - 08/26/2020 4:11 PM CDT Patient: SOFIA BARLOW Age: 80 years Sex: Female : 1940 Associated Diagnoses: Acute blood loss anemia; Acute kidney injury; Right knee pain; S/p R TKA revision; Status post quadriceps tendon repair; HTN (hypertension); Hypercholesteremia; Hypothyroid; Chronic venous insufficiency; A. fib; Sleep apnea; Obesity (BMI 30-39.9) Author: DONNA DRIVER MD-INT Basic Information awake alert comfortable, asympt. , pain under control, no trouble w. urination. I had to peer to peer review today to discuss her condition unfortunately the insurance refused to send her to halfway facility to continue her care and stated that she does not meet the criteria CMS guidelines Review of Systems Constitutional: No fever, No chills. Eye: No discharge, No blurring, No double vision, No visual disturbances. Ear/Nose/Mouth/Throat: No nasal congestion, No sore throat. Respiratory: No shortness of breath, No cough. Cardiovascular: No chest pain, No palpitations. Gastrointestinal: No nausea, No vomiting. Genitourinary: No change in urine stream. Musculoskeletal: Right leg in a cast from foot to the hip. Integumentary: Negative. Neurologic: Alert and oriented X4. Health Status Allergies: Allergies (10) Active Reaction amLODIPine None Documented valdecoxib None Documented Bextra Itching etodolac Itching Latex Itching Mobic Itching Naprosyn Itching penicillin Shortness of breath phentermine unknown reaction sulfa drugs Itching Current medications: (Selected) Inpatient Medications Ordered Benadryl: 25 mg, Oral, Tab, On-CALL, PRN for Other (See Comment), Routine, Start 08/20/20 23:34:00 EDT, 08/20/20 23:34:00 EDT Benadryl: 25 mg, Oral, Tab, Q4H, PRN for Itching, Routine, Start 08/20/20 20:53:00 EDT, 08/20/20 20:53:00 EDT Chloraseptic Menthol 1.4% topical spray: 5 Windom, Oral, Windom, Q2H, PRN for Sore Throat, Routine, Start 08/20/20 23:34:00 EDT Colace: 100 mg, Oral, Cap, BID, Routine, Start 08/20/20 21:00:00 EDT, 08/20/20 20:53:00 EDT Crestor: 10 mg, Oral, Tab, At Bedtime, Routine, Start 08/20/20 23:36:00 EDT, 08/20/20 23:36:00 EDT Cymbalta: 60 mg, Oral, Cap, Daily, Routine, Start 08/21/20 9:00:00 EDT, 08/20/20 23:36:00 EDT Dulcolax Laxative: 10 mg, Rectal, Supp, 1-Time, PRN for Constipation, Routine, Start 08/22/20 9:00:00 EDT, 08/20/20 20:53:00 EDT Dulcolax Laxative: 10 mg, Rectal, Supp, Daily, PRN for Constipation, Routine, Start 08/20/20 23:34:00 EDT, 08/20/20 23:34:00 EDT DuoNeb 0.5 mg-2.5 mg/3 mL inhalation solution: 3 mL, Nebulized Inhalation, Inh, Q4H, PRN for Wheezing, Routine, Start 08/20/20 23:34:00 EDT Flexeril: 5 mg, Oral, Tab, TID, PRN for Muscle Spasms, Start 08/20/20 23:28:00 EDT Keflex: 500 mg, Oral, Cap, Q12H, Routine, Start 08/21/20 21:00:00 EDT, Indication: Other-See Comment Milk of Magnesia 8% oral suspension: 15 mL, Oral, Liquid, Q6H, PRN for Constipation, Routine, Start 08/20/20 23:34:00 EDT MiraLax: 17 Gram, Oral, Powder, Daily, Routine, Start 08/21/20 9:00:00 EDT Mylanta: 30 mL, Oral, Liquid, Q6H, PRN for Indigestion, Routine, Start 08/20/20 23:34:00 EDT Protonix: 40 mg, Oral, EC Tab, Daily, Routine, Start 08/21/20 9:00:00 EDT, 08/20/20 20:53:00 EDT Sodium Chloride 0.9% intravenous solution 1,000 mL: 1,000 mL, Bag Volume (mL) = 1,000, IntraVENous, Rate = 50 mL/Hr, start date 08/21/20 4:23:00 EDT, Routine, 1.96, m2 Synthroid: 100 mcg, Oral, Tab, Daily, Routine, Start 08/21/20 6:30:00 EDT, 08/20/20 23:36:00 EDT Tylenol: 1,000 mg, Oral, Tab, Q8HInt, Routine, Start 08/20/20 21:00:00 EDT, 08/20/20 20:53:00 EDT Zofran: 4 mg, IV Push, Inj, Q4H, PRN for Nausea, Routine, Start 08/20/20 23:34:00 EDT, 08/20/20 23:34:00 EDT Zofran: 4 mg, IV Push, Inj, Q8H, order duration: 3 Time(s), PRN for Nausea, Routine, Start 08/20/20 20:53:00 EDT, Stop Limited # of times, 08/20/20 20:53:00 EDT aspirin: 81 mg, Oral, EC Tab, BID, Routine, Start 08/21/20 9:00:00 EDT, 08/20/20 20:53:00 EDT cyanocobalamin: 5,000 mcg, Oral, Tab, Daily, Routine, Start 08/21/20 9:00:00 EDT, 08/20/20 23:36:00 EDT diphenhydrAMINE: 12.5 mg, Oral, Tab, At Bedtime, PRN for Insomnia, Start 08/20/20 21:00:00 EDT docusate calcium: 240 mg, Oral, Cap, Daily, PRN for Constipation, Routine, Start 08/20/20 23:34:00 EDT, 08/20/20 23:34:00 EDT doxycycline monohydrate: 100 mg, Oral, Cap, Q12H, Routine, Start 08/20/20 23:36:00 EDT, Indication: Other-See Comment ferrous sulfate: 325 mg, Oral, EC Tab, Daily, Routine, Start 08/21/20 9:00:00 EDT, 08/20/20 23:51:00 EDT fluticasone 50 mcg/inh nasal spray: 2 Windom, Nostrils Both, Windom, BID, PRN for Allergies, Routine, Start 08/20/20 23:36:00 EDT furosemide: 40 mg, Oral, Tab, Daily, Routine, Start 08/21/20 9:00:00 EDT, 08/20/20 23:36:00 EDT gabapentin: 300 mg, Oral, Cap, At Bedtime, Routine, Start 08/20/20 21:00:00 EDT, 08/20/20 20:53:00 EDT loratadine: 10 mg, Oral, Tab, Daily, Routine, Start 08/21/20 9:00:00 EDT, 08/20/20 23:36:00 EDT metoclopramide: 5 mg, IV Push, Inj, Q4H, PRN for Nausea/Vomiting, Routine, Start 08/20/20 20:53:00 EDT, 08/20/20 20:53:00 EDT multivitamin: 1 Tab, Oral, Tab, Daily, Routine, Start 08/21/20 9:00:00 EDT naloxone: 0.1 mg, IV Push, Inj, Q5Min, PRN for Oversedation, Routine, Start 08/20/20 20:53:00 EDT, 08/20/20 20:53:00 EDT oxyCODONE: 15 mg, Oral, Tab, Q4H, PRN for Pain (Moderate 4-6), Routine, Start 08/20/20 20:53:00 EDT, 08/20/20 20:53:00 EDT oxyCODONE: 20 mg, Oral, Tab, Q4H, PRN for Pain (Severe 7-10), Routine, Start 08/20/20 20:53:00 EDT, 08/20/20 20:53:00 EDT oxyCODONE: 5 mg, Oral, Tab, Q4H, PRN for Pain (Moderate 4-6), Routine, Start 08/20/20 20:53:00 EDT, 08/20/20 20:53:00 EDT potassium chloride 20 mEq oral tablet, extended release: 20 mEq 1 Tab, Oral, CR Tab, BID, Routine, Start 08/20/20 23:36:00 EDT, 08/20/20 23:36:00 EDT senna: 8.6 mg, Oral, Tab, At Bedtime, PRN for Constipation, Routine, Start 08/20/20 20:53:00 EDT, 08/20/20 20:53:00 EDT traMADol: 50 mg, Oral, Tab, Q6H, Routine, Start 08/20/20 20:53:00 EDT, 08/20/20 20:53:00 EDT traZODone: 50 mg, Oral, Tab, At Bedtime, PRN for Insomnia, Routine, Start 08/20/20 23:34:00 EDT, 08/20/20 23:34:00 EDT Documented Medications Documented Aspir 81 oral delayed release tablet: 1 Tab, Oral, Daily, 0 Refill(s) Crestor 10 mg oral tablet: 1 Tab, Oral, Tab, At Bedtime, # 30 Tab, 0 Refill(s) Cymbalta 60 mg oral delayed release capsule: 1 Cap, Oral, DR Cap, Daily, (do not crush or chew), # 30 Cap, 0 Refill(s) MiraLax oral powder for reconstitution: 17 Gram, Oral, Daily, 0 Refill(s) Multiple Vitamins oral tablet: 1 Tab, Oral, Tab, Daily, 0 Refill(s) Sports Pain Relief Rub 10% topical cream: 0 Refill(s) Synthroid 100 mcg (0.1 mg) oral tablet: 1 Tab, Oral, Tab, Daily, 0 Refill(s) Tumerick 500 mg: Tumerick 500 mg, 0 Refill(s) calcium carbonate vitamin D3: calcium carbonate vitamin D3, 0 Refill(s) cephalexin 500 mg oral capsule: 1 Cap, Oral, Cap, Q12H, # 20 Cap, 0 Refill(s) cetirizine 10 mg oral tablet: 1 Tab, Oral, Daily, 0 Refill(s) cyanocobalamin 5000 mcg oral tablet, extended release: 1 Tab, Oral, Daily, 0 Refill(s) diclofenac: 75 mg, Oral, BID, 0 Refill(s) doxycycline monohydrate 50 mg oral capsule: 2 Cap, Oral, Cap, Q12H, # 4 Cap, 0 Refill(s) ferrous sulfate 325 mg (65 mg elemental iron) oral delayed release tablet: 1 Tab, Oral, Daily, 0 Refill(s) fluticasone 50 mcg/inh nasal spray: 2 Windom, Nostrils Both, Windom, BID, PRN Allergies, 0 Refill(s) furosemide 40 mg oral tablet: 1 Tab, Oral, Daily, 0 Refill(s) lisinopril: 5 mg, Oral, Daily, 0 Refill(s) oxyCODONE: 10 mg, Oral, Q8H, PRN as needed for pain, 0 Refill(s) potassium chloride 20 mEq oral tablet, extended release: 1 Tab, Oral, BID, 0 Refill(s) traMADol: 50 mg, Oral, Q6H, PRN as needed for pain, 0 Refill(s), Medications (40) Active Scheduled: (18) acetaminophen 500 mg tab 1,000 mg 2 Tab, Oral, Q8HInt aspirin EC 81 mg tab 81 mg 1 Tab, Oral, BID cephalexin 250 mg cap 500 mg 2 Cap, Oral, Q12H cyanocobalamin 1,000 mcg tab 5,000 mcg 5 Tab, Oral, Daily docusate sodium 100 mg cap 100 mg 1 Cap, Oral, BID doxycycline monohydrate 100 mg cap 100 mg 1 Cap, Oral, Q12H DULoxetine DR 60 mg cap 60 mg 1 Cap, Oral, Daily ferrous sulfate 325 mg EC tab 325 mg 1 Tab, Oral, Daily furosemide 40 mg tab 40 mg 1 Tab, Oral, Daily gabapentin 300 mg cap 300 mg 1 Cap, Oral, At Bedtime levothyroxine 100 mcg tab 100 mcg 1 Tab, Oral, Daily loratadine 10 mg tab 10 mg 1 Tab, Oral, Daily multiple vitamin (Thera) tab 1 Tab, Oral, Daily pantoprazole EC 40 mg tab 40 mg 1 Tab, Oral, Daily polyethylene glycol 3350 pwd 17 g pkt 17 Gram 1 Packet, Oral, Daily potassium chloride CR 20 mEq tab 20 mEq 1 Tab, Oral, BID rosuvastatin 10 mg tab 10 mg 1 Tab, Oral, At Bedtime traMADol 50 mg tab 50 mg 1 Tab, Oral, Q6H Continuous: (1) NaCl 0.9% 1,000 mL 1,000 mL, IntraVENous, 50 mL/Hr PRN: (21) al hydrox/mag hydrox/simeth 30 mL liq 30 mL, Oral, Q6H albuterol-ipratropium inh 3 mL 3 mL, Nebulized Inhalation, Q4H bisacodyl 10 mg supp 10 mg 1 Supp, Rectal, 1-Time bisacodyl 10 mg supp 10 mg 1 Supp, Rectal, Daily cyclobenzaprine 10 mg tab 5 mg 0.5 Tab, Oral, TID diphenhydrAMINE 25 mg tab 25 mg 1 Tab, Oral, Q4H diphenhydrAMINE 25 mg tab 12.5 mg 0.5 Tab, Oral, At Bedtime diphenhydrAMINE 25 mg tab 25 mg 1 Tab, Oral, On-CALL docusate calcium 240 mg cap 240 mg 1 Cap, Oral, Daily fluticasone 0.05% nasal spray 2 Windom, Nostrils Both, BID magnesium hydroxide 8% liq 30 mL 15 mL, Oral, Q6H metoclopramide 10 mg/2 mL inj 5 mg 1 mL, IV Push, Q4H naloxone 0.4 mg/1 mL inj 0.1 mg 0.25 mL, IV Push, Q5Min ondansetron 4 mg/2 mL inj 4 mg 2 mL, IV Push, Q8H ondansetron 4 mg/2 mL inj 4 mg 2 mL, IV Push, Q4H oxyCODONE 15 mg tab 15 mg 1 Tab, Oral, Q4H oxyCODONE 5 mg tab 5 mg 1 Tab, Oral, Q4H oxyCODONE 5 mg tab 20 mg 4 Tab, Oral, Q4H phenol 1.4% throat spray 5 Windom, Oral, Q2H senna 8.6 mg tab 8.6 mg 1 Tab, Oral, At Bedtime traZODone 50 mg tab 50 mg 1 [...] Shoulder pain, bilateral Sleep apnea Physical Examination VS/Measurements Vital Measurements 08/26/2020 9:33 EDT Systolic Blood Pressure 106 mmHg Diastolic Blood Pressure 45 mmHg LOW Mean Arterial Pressure (MAP)-BMDI 60 Temperature Source Oral Temperature Mode Fahrenheit Temperature, Fahrenheit 99.1 Deg F Clinical Temperature, C 37.3 Deg C Heart Rate Monitored 91 bpm Respiratory Rate 16 Breaths/Min Oxygen Saturation 95 % General: Alert and oriented, No acute distress. [...] Lymphatics: No lymphadenopathy neck, axilla, groin. Musculoskeletal: Right lower extremity in a cast from the groin to the foot. Integumentary: Warm, Intact, No rash. Neurologic: Alert, Oriented, No focal deficits. Psychiatric: Cooperative, Appropriate mood & affect. Review / Management Results review: All Results 08/26/2020 3:25 EDT Sodium Level 140 mmol/L Potassium Level 4.3 mmol/L Chloride Level 102 mmol/L Carbon Dioxide Level 31 mmol/L Anion Gap 11 Glucose Level 108 mg/dL HI Blood Urea Nitrogen 33 mg/dL HI Creatinine Level 0.80 mg/dL eGFR >60 mL/min/1.73m2 eGFR NonAfrican >60 mL/min/1.73m2 Bun/Creatinine 41.2 HI Calcium Level 8.0 mg/dL LOW Protein Total 4.8 Gram/dL LOW Albumin Level 2.0 Gram/dL LOW Globulin 2.8 Gram/dL A/G Ratio 0.7 LOW Bilirubin Total 0.4 mg/dL Alk Phos 61 Units/Liter AST 17 Units/Liter ALT 12 Units/Liter WBC 11.0 K/uL HI RBC 3.20 Million/uL LOW Hgb 10.0 Gram/dL LOW Hct 30.3 % LOW MCV 94.7 fL MCH 31.3 pg MCHC 33.0 Gram/dL Platelet Count 321 K/uL MPV 9.4 fL RDW 12.6 % Neut % 56.3 % Neut # 6.16 K/uL HI Lymph % 23.7 % Lymph # 2.60 K/uL Montague % 11.7 % Montague # 1.28 K/uL HI Eos % 7.6 % HI Eos # 0.83 K/uL HI Baso % 0.2 % Baso # 0.02 K/uL Slide Review No IG# 0 x10(3)/uL IG% 0 % . Condition: Stable. Impression and Plan Diagnosis Acute blood loss anemia - Working, Medical. Acute kidney injury - Working, Medical. Right knee pain - Admitting, Medical. S/p R TKA revision - Admitting, Medical. Status post quadriceps tendon repair - Admitting, Medical. HTN (hypertension) - Admitting, Medical. Hypercholesteremia - Admitting, Medical. Hypothyroid - Admitting, Medical. Chronic venous insufficiency - Admitting, Medical. A. fib - Admitting, Medical. Sleep apnea - Admitting, Medical. Obesity (BMI 30-39.9) - Admitting, Medical. Course: Plan/ cont. current care, pt/ot, encourage oral fluid intake, nutritional support, encourage use of respirometer, motoring blood pressure, renal function, blood glucose, and urine output. Patient cannot go home has no support in the meantime she is a high fall risk and need to go to halfway facility. Electronically signed by Maureen Cornejo Conversion Owner Operator Tanker Truck Driver Cerner at 06/16/2022 8:17 PM CDT documented in this encounter Plan of Treatment Not on file documented as of this encounter Visit Diagnoses Not on filedocumented in this encounter
--- OUTSIDE RECORDS SUMMARY | 2024-08-09 13:18 | XMS_ITS | Encounter Summary ---
Author Organization [employer] Address [address] [place] [address] Care Team Providers Care Fence Machine Operator Name Role Phone Unavailable Primary Care Provider Unavailabl e Encounter Details Date Type Department Care Team (Late st Contact Info) Description 08/27/2020 Transcribed Document [facility] [place] [address] [place] [address] ProviderMariela MD [address], [place] [id number] Social History Tobacco Use Types Packs/Day Years [...] Note - Historical ProviderMD - 08/27/2020 5:00 PM CDT Chart Check - Review Order Profile Entered On: 08/27/2020 18:35 EDT Performed On: 08/27/2020 17:00 EDT by Vidhi Bailey RN Chart Check Powerplans Initiated/Discontinued as Appropriate : Yes All Active Orders Reviewed : Yes Vidhi Bailey RN - 08/27/2020 18:35 EDT Electronically signed by Chantal [facility] Conversion Hearing And Speech Assistant Cerner at 06/16/2022 8:12 PM CDT documented in this encounter Plan of Treatment Not on file documented as of this encounter Visit Diagnoses Not on filedocumented in this encounter
--- OUTSIDE RECORDS SUMMARY | 2024-08-09 13:18 | XMS_ITS | Encounter Summary ---
Author Organization [employer] Address [address] [place] [address] Care Team Providers Care Educational Aide Name Role Phone Unavailable Primary Care Provider Unavailabl e Encounter Details Date Type Department Care Team (Late st Contact Info) Description 08/27/2020 Transcribed Document [facility] [place] [facility] [place] [address] ProviderMariela MD [address] [place] [address] Social History Tobacco Use Types [...] Conversion Note - Historical ProviderMD - 08/27/2020 2:36 PM CDT On Going Discharge Planning Entered On: 08/27/2020 14:44 EDT Performed On: 08/27/2020 14:36 EDT by ADALBERTO BEE, EDDIE Care Management Progress Note Discharge Arrangements : Patient Post-Acute Information Patient Name: SOFIA GILL Gender: Female : [birth year] Age: 80 Years [place] Referral(s): Service: Organization: Business Address: Phone Number: Steward/Stewardess [employer] [facility] at [address], [place], [address] Discharge Options Discussed with Patient : Discharge transportation, DME, [facility] Barriers to Discharge Identified : No transportation available Barriers to Discharge Unresolved : No transportation available Designation of Choice Signed : Yes Patient Offered Choice/Affiliations Explained : Yes List/Info Provided Pt/Fam/Support Person : Durable medical equipment, halfway facilities Were Referrals Sent to Post Acute Providers : Yes Does the Patient have a Floor to SNF Benefit? : No Is the Patient Meeting Medical Necessity : Yes Physician Agreeable to Move Forward with D/C Plan? : Yes Did you Attend Multidisciplinary Rounds? : Yes ADALBERTO BEE RN - 08/27/2020 14:36 EDT Narrative Progress Note Narrative Progress Note : Patient insurance denied patient for rehab. Isabelle from [facility] spoke to patient and she can go Self pay. Patient will be going to room 208 at the [facility]. Maria L set up for 10 am on WednesdayAugust 28. Silva at [facility] notified of patient going to SNF per Esteban pharmacist. Scripts will be faxed over to Pharmacy at the [facility]. Case Management will continue to follow patient til discharge. CALL REPORT TO AND FAX DISCHARGE SUMMARY TO . Ramuisabell will pick patient up on 08/28/20 at 10am via stretcher. REF# [id number]. ADALBERTO BEE RN - 08/27/2020 14:46 EDT Historical Progress Note : Per MDR's patient not ready to be discharged yet. Pending preautorization at [facility]. Called and spoke with Richard and he states the preauth hadnt came back just yet. CM will continue to monitor. ADALBERTO BEE RN - 08/23/20 15:00:41 80 y/o female s/p RIGHT patello tendon repair. ORIf per Dr. Saenz. met with patient at bedside to discuss discharge needs and verify demographics. RRS:Low 26 boost:4 STATUS: patient lives alone. Her family helps them when they can. she needs assistance for adls. PLAN: patient wants to go to Rehab and choose [facility] or [facility]. Referral faxed via Mike and isabelle notified. 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 DME: patient has a wc, showerchair and a walker at home. CM: case dontrell will continue to follow patient TRANS: will need an [facility] to transport patient there. ADALBERTO BEE RN - 08/21/20 14:06:04 ADALBERTO BEE RN - 08/27/2020 14:36 EDT documented in this encounter Plan of Treatment Not on file documented as of this encounter Visit Diagnoses Not on filedocumented in this encounter
--- OUTSIDE RECORDS SUMMARY | 2024-08-09 13:18 | XMS_ITS | Encounter Summary ---
Author Organization [employer] Address [address] [place] [address] Care Team Providers Care It Program Manager Name Role Phone Unavailable Primary Care Provider Unavailabl e Encounter Details Date Type Department Care Team (Late st Contact Info) Description 08/26/2020 Transcribed Document [facility] [place] [facility] [place] [address] ProviderMariela MD [facility] [place] [address] Social History Tobacco Use Types [...] Conversion Note - Historical ProviderMD - 08/26/2020 2:00 AM CDT Test Automation Architect Details Entered On: 08/26/2020 1:33 EDT Performed On: 08/26/2020 2:00 EDT by Chinyere Littlejohn RN-PATIENT CARE BEDSIDE NON-EXEMPT Order Details Transport Mode Order Detail : Bed (including specialty) Isolation Precautions Order Detail : Standard Precautions Order Detail : N/A IV Order Detail : 0 Oxygen Order Detail : 1 Nurse Collect Order Detail : 0 Lift/Transfer : Maximal assist Central Line Order Detail : Yes Room Service : Not Appropriate Arterial Line : No Patient Needs Meds Crushed/Liquid : No Chinyere Littlejohn RN-PATIENT CARE BEDSIDE NON-EXEMPT - 08/26/2020 1:33 EDT documented in this encounter Plan of Treatment Not on file documented as of this encounter Visit Diagnoses Not on filedocumented in this encounter
--- OUTSIDE RECORDS SUMMARY | 2024-08-09 13:18 | XMS_ITS | Encounter Summary ---
Author Organization [employer] Address [address] [place] [address] Care Team Providers Care Stummel Selector Name Role Phone Unavailable Primary Care Provider Unavailabl e Encounter Details Date Type Department Care Team (Late st Contact Info) Description 07/16/2019 Transcribed Document [facility] [place] Medicine [address] [place] [address] ProviderMariela MD [address] [id number] Social History Tobacco Use Types Packs/Day Years Used Date Smoking Tobacco: Never Assessed Comments Unknown Sex and Gender Information Value Date Recorded Sex Assigned at Female 09/02/2021 8:57 PM CDT Legal Sex Female 6:58 PM CDT Gender Identity Female 09/02/2021 8:57 PM CDT Sexual Orientation Not on file documented as of this encounter Miscellaneous Notes * Cerner Conversion Note - Historical ProviderMD - 07/16/2019 5:00 PM CDT Chart Check - Review Order Profile Entered On: 07/16/2019 18:16 EDT Performed On: 07/16/2019 17:00 EDT by TIM CHOW RN Chart Check Powerplans Initiated/Discontinued as Appropriate : Yes All Active Orders Reviewed : Yes TIM CHOW RN - 07/16/2019 18:16 EDT documented in this encounter Plan of Treatment Not on file documented as of this encounter Visit Diagnoses Not on filedocumented in this encounter
--- OUTSIDE RECORDS SUMMARY | 2024-08-09 13:18 | XMS_ITS | Encounter Summary ---
Author Organization [employer] Address [address] [place] [address] Care Team Providers Care Nursing Program Director Name Role Phone Unavailable Primary Care Provider Unavailabl e Encounter Details Date Type Department Care Team (Late st Contact Info) Description 10/26/2020 Transcribed Document [facility] [place] Family Medicine [facility] [place] [address] ProviderMariela MD [address] [place] [address] Social History Tobacco Use Types Packs/Day [...] Conversion Note - Historical ProviderMD - 10/26/2020 1:53 [place] [address] SOFIA BARLOW :1940 Visit Time:10/26/2020 Your Visit Summary Your Care Team Primary Provider: CARLY JON Secondary Provider: Your Diagnosis Cast removal Foot injury - Minor Healed wound Lower leg pain-swelling Medical Information You may obtain a copy of your Emergency Department visit from Medical Records by calling the hospital phone number listed above and asking to be directed to the Medical Records Department. If you had special tests, such as EKG???s or X-rays, the interpretation of your tests given to you by the Emergency Department Physician is a preliminary report. Some fractures and illnesses fail to show up on preliminary tests. These will be reviewed again and we will call you if there are any new suggestions. If your symptoms continue notify your physician. After you leave, you should follow the instructions provided. What to do next Follow-Up Appointments Follow Up with [facility] When Within 2 to 3 days Comments Call for follow up appointment Follow-up as instructed Where: [address] [place] [phone]- Business (1) Follow Up with Follow up with primary care provider When Within 2 to 3 days Comments Call for follow up appointment. Please follow-up with your primary care provider in 2 to 3 days. Return to ED if you experience new or worsening symptoms. If you do not have a primary care provider the patient resource master scheduler can assist you with establishing care and scheduling follow-up. The Patient Resource Margin Trimmer can be contacted at . Allergies Mobic etodolac naproxen penicillin sulfa drugs Immunizations This Visit No Immunizations Found Medications The home medications listed are only as accurate as the information you provided. Please continue taking all of your medications prescribed by your Primary Care Provider unless specifically told to change or discontinue the medication. Please direct any questions regarding your home medications to your Primary Care Provider. Take your medications faithfully. Do NOT skip medication. Do NOT stop taking medications without the direction of a physician. Carry a list of your medications with you at all times, and take this medication list with you to your first follow up visit. Report any side effects. Avoid herbal remedies unless discussed with your physician. As part of your treatment plan, your physician may have prescribed a limited course of a controlled substance. This medication may be given to help people with moderate or severe pain or for other medical conditions, but there are risks involved with treatment. Common side effects may include nausea, constipation, drowsiness, sweating, itching, dry mouth, and rash. More serious side effects may include cognitive and motor impairment, like problems with thinking, concentrating, alertness, and movement (e.g. slowed reflexes), and driving and operating heavy machinery can be dangerous. It is important for you to talk to your physician if you have these side effects or questions. These controlled substances can produce physical dependence and be habit-forming if taken for an extended period of time, which means that the body has gotten used to them and may experience withdrawal symptoms if they are abruptly stopped. Withdrawal symptoms can include runny nose, sweating, goose bumps, diarrhea, abdominal cramping, rapid heartbeat, difficulty sleeping, and nervousness. Please dispose of unused and medications per pharmacy guidance. Test Results Laboratory or Other Results This Visit (last charted value for your 10/26/2020 visit) Hematology 10/26/2020 2:12 AM WBC: 12.6 K/uL -- Normal range between ( 3.9 and 10.0 ) RBC: 3.67 Million/uL -- Normal range between ( 3.93 and 5.22 ) Hct: 36.3 % -- Normal range between ( 34.1 and 44.9 ) Hgb: 11.5 Gram/dL -- Normal range between ( 11.2 and 15.7 ) Platelet Count: 335 K/uL -- Normal range between ( 163 and 369 ) MCH: 31.3 pg -- Normal range between ( 25.6 and 32.2 ) MCHC: 31.7 Gram/dL -- Normal range between ( 32.3 and 36.5 ) MCV: 98.9 fL -- Normal range between ( 79.0 and 94.8 ) Slide Review: No Eos %: 8.4 % -- Normal range between ( 1.0 and 7.0 ) Weakley #: 1.11 K/uL -- Normal range between ( 0.24 and 0.82 ) Eos #: 1.06 K/uL -- Normal range between ( 0.04 and 0.54 ) Weakley %: 8.8 % -- Normal range between ( 4.7 and 12.5 ) Sed Rate Auto: 31 mm/Hr -- Normal range between ( 0 and 30 ) Baso %: 0.3 % -- Normal range between ( 0.0 and 1.0 ) Baso #: 0.04 K/uL -- Normal range between ( 0.01 and 0.08 ) RDW: 13.4 % -- Normal range between ( 11.6 and 14.4 ) Neut %: 57.6 % -- Normal range between ( 34.0 and 71.0 ) Neut #: 7.26 K/uL -- Normal range between ( 1.56 and 6.13 ) Lymph %: 24.6 % -- Normal range between ( 19.3 and 53.0 ) Lymph #: 3.10 K/uL -- Normal range between ( 1.18 and 3.74 ) MPV: 9.5 fL -- Normal range between ( 9.4 and 12.4 ) IG#: 0 x10(3)/uL IG%: 0 % -- Normal range between ( 0 and 1 ) General Chemistry 10/26/2020 2:12 AM Creatinine Level: 0.82 mg/dL -- Normal range between ( 0.55 and 1.02 ) Sodium Level: 140 mmol/L -- Normal range between ( 136 and 146 ) Potassium Level: 4.8 mmol/L -- Normal range between ( 3.5 and 5.1 ) Chloride Level: 105 mmol/L -- Normal range between ( 102 and 112 ) Carbon Dioxide Level: 29 mmol/L -- Normal range between ( 21 and 32 ) Anion Gap: 11 -- Normal range between ( 9 and 20 ) Bilirubin Total: 0.2 mg/dL -- Normal range between ( 0.2 and 1.3 ) A/G Ratio: 0.9 -- Normal range between ( 1.1 and 2.5 ) ALT: 13 Units/Liter -- Normal range between ( 12 and 78 ) AST: 14 Units/Liter -- Normal range between ( 5 and 37 ) Globulin: 2.8 Gram/dL -- Normal range between ( 1.5 and 4.5 ) Alk Phos: 66 Units/Liter -- Normal range between ( 27 and 136 ) Bun/Creatinine: 57.3 -- Normal range between ( 8.0 and 20.0 ) Calcium Level: 8.2 mg/dL -- Normal range between ( 8.5 and 10.1 ) CRP: 0.6 mg/dL -- Normal range between ( 0.0 and 0.9 ) eGFR : >60 mL/min/1.73m2 eGFR NonAfrican: >60 mL/min/1.73m2 Glucose Level: 110 mg/dL -- Normal range between ( 74 and 106 ) Blood Urea Nitrogen: 47 mg/dL -- Normal range between ( 7 and 22 ) Protein Total: 5.4 Gram/dL -- Normal range between ( 6.4 and 8.2 ) Albumin Level: 2.6 Gram/dL -- Normal range between ( 3.4 and 5.0 ) Cardiac Specific Markers 10/26/2020 2:12 AM CK: 26 Units/Liter -- Normal range between ( 26 and 192 ) Coagulation 10/26/2020 6:19 AM D Dimer Quant: 1156 ng/mL Ultrasound 10/26/2020 8:45 AM US Veins LE Duplex LTD RT: US Veins LE Duplex LTD RT Education Materials How to Use a Knee Immobilizer A knee immobilizer is used to support and protect an injured or painful knee. You may also have to wear it after knee surgery. A knee immobilizer keeps your knee from moving or bending while it is healing. Wear and remove your knee immobilizer only as told by your health care provider. In general, your immobilizer should: ??? Have straps, hooks, or tapes that fasten snugly around your leg. ??? Not feel too tight or too loose. What are the risks? Generally, knee immobilizers are safe to wear. However, problems may occur, including: ??? Skin irritation that may lead to infection. ??? Making your condition worse if you wear the immobilizer in the wrong way. How to use a knee immobilizer Different immobilizers will have different instructions for use. Your health care provider will show you or tell you: ??? How to put on the immobilizer. ??? How to adjust the immobilizer. ??? When and how often to wear the immobilizer. ??? How to remove the immobilizer. ??? If you will need any assistive devices in addition to the immobilizer, such as crutches or a cane. Follow these instructions at home: ??? While resting, raise (elevate) your leg above the level of your heart. Pillows can be used for support. Doing this reduces throbbing and helps with healing. ??? Loosen the immobilizer if your toes tingle or if you notice other symptoms or signs that it is too tight, such as: ? Swelling. ? Numbness. ? Color change in your foot or ankle. ? More pain. ??? Keep the immobilizer clean. ??? If the immobilizer is not waterproof: ? Do not let it get wet. ? Cover it with a watertight covering when you take a bath or a shower. ??? If your health care provider says that you may remove the immobilizer: ? Take it off before bathing. ? Check for any skin irritation. ? Use a towel to dry the area completely before you put the immobilizer back on. Contact a health care provider if: ??? Your knee immobilizer breaks or needs to be replaced. ??? You have more pain or swelling in your knee, foot, or ankle. ??? Your knee immobilizer is not helping. ??? Your knee immobilizer makes your knee pain worse. Summary ??? A knee immobilizer is used to support and protect an injured or painful knee. You may also have to wear it after knee surgery. ??? Generally, knee immobilizers are safe to wear. ??? Different immobilizers will have different instructions for use. Follow the instructions from your health care provider. ??? Contact your health care provider if you have more swelling or pain, if your knee immobilizer breaks, or if your knee immobilizer does not help your knee pain. This information is not intended to replace advice given to you by your health care provider. Make sure you discuss any questions you have with your health care provider. Document Revised: 02/24/2017 Document Reviewed: 02/01/2017 Commissioner Patient Education ?? 2020 [employer]. Emergency Awareness and Preventative Care STROKE is an EMERGENCY Every Minute Counts Act FAST and Check for these signs: FACE Does the face look uneven? ARM Does one arm drift down? SPEECH Does their speech sound strange? TIME Call at any sign of stroke Stroke Risk Factors Atrial Fibrillation (irregular heartbeat) Diabetes Family history of stroke Heart Disease Heavy alcohol use High Blood Pressure High Cholesterol Physical inactivity and obesity Smoking Cigarette Smoking The facts are clear, cigarette smoking will shorten your life. Smoking can cause many illnesses along the way. As a healthcare provider, we recommend that you stop smoking. Assistance with quitting is available by contacting 4-051-YTQV-NOW. This is a free resource providing counseling, support, and referral. Or you may contact your personal physician. National Suicide Prevention Lifeline: The National Suicide Prevention Lifeline is a national network of local crisis centers that provides free and confidential emotional support to people in suicidal crisis or emotional distress 24 hours a day, 7 days a week. Don't Wait! Stop a Heart Attack Before it Starts What is a heart attack? A heart attack is damage or to a part of the heart from severely decreased or lack of blood flow to the heart. Over time, arteries can become narrow from the buildup of fat and cholesterol, which is called plaque. The plaque can rupture causing a blood clot to form. When the blood clot forms, the artery can become severely narrowed or completely blocked, causing a heart attack. Heart attack is the leading cause of in the [place]. 85% of muscle damage occurs within the first 2 hours. Delay in the recognition of heart attack symptoms increases the chances of . Know the early symptoms of a heart attack: Nausea Feeling of fullness in chest Jaw Pain Pain that travels down one or both arms Fatigue/being tired Anxiety Back Pain Chest pressure, squeezing, or discomfort Shortness of breath Sweating, or a cold sweat Feeling of impending doom There are unusual signs of a heart attack, too! Women, the elderly, and diabetics may present with atypical symptoms: Fainting/dizziness Weakness Confusion Risk Factors for a Heart Attack Some heart disease risk factors, such as age and family history, cannot be changed. Others, like smoking and lack of exercise, can be changed. Smoking High Cholesterol High Blood Pressure Family History Obesity Age Gender (Males are at higher risk) Lack of Exercise Diabetes Diet Stress Excessive Alcohol Intake If you or someone you know is experiencing the signs and symptoms of a heart attack, DON???T DELAY. Call immediately and seek help. If someone collapses, perform CPR! Do not attempt to drive if you are having symptoms of heart attack. Hands-Only CPR Why Hands-Only CPR? Hands-Only CPR has been shown to be as effective as conventional CPR for cardiac arrests that occur outside of a hospital. Survival depends on immediately receiving CPR from someone nearby. How do you perform Hands-Only CPR? There are two easy steps: Call if you see a teen or adult collapse Push hard and fast in the center of the chest at a beat of 100 beats per minute. Save a life! 4 WAYS TO GET AHEAD OF SEPSIS SEPSIS is a MEDICAL EMERGENCY. Time matters! Infections put you and your family at risk for a life-threatening condition called sepsis. Sepsis is the body's extreme response to an infection. It is life-threatening, and without timely treatment, sepsis can rapidly lead to tissue damage, organ failure, and . Sepsis happens when an infection you already have-in your skin, lungs, urinary tract or somewhere else-triggers a chain reaction throughout your body. 1 PREVENT INFECTIONS Take good care of chronic conditions. Talk to your doctor about getting the recommended vaccines. 2 PRACTICE GOOD HYGIENE Wash your hands frequently. Keep cuts or open sores clean and covered until they are healed. 3 KNOW THE SYMPTOMS Confusion or disorientation Shortness of breath High heart rate Fever, shivering, or feeling very cold Extreme pain or discomfort Clammy or sweaty skin 4 ACT FAST Get medical care IMMEDIATELY if you suspect sepsis or if you have an infection that is not getting better or is getting worse. To learn more about sepsis and how to prevent infections, visit www.cdc.gov/sepsis. The examination and treatment you have received in the Emergency Department has been done to provide an appropriate evaluation and stabilizing treatment on an emergency basis only. Given the limited resources, it is not meant to be a substitute for complete medical care. The follow-up doctor you named will receive a copy of your records and all test reports. IT IS IMPORTANT THAT YOU SCHEDULE A FOLLOW-UP APPOINTMENT AND ARE RE-EVALUATED. You should report any new complaints, symptoms, or remaining problems at that time. IT IS IMPOSSIBLE FOR THE EMERGENCY DEPARTMENT TO RECOGNIZE AND TREAT ALL ELEMENTS OF INJURY OR ILLNESS IN A SINGLE VISIT. If you have been referred to a specialist physician, it means that we believe you may have a condition that requires the expertise of a specialist. These physicians work in partnership with the hospital and have agreed to see referred patients in their office for further evaluation. KEEP IN MIND THAT THE SPECIALIST HAS HIS/HER OWN OFFICE POLICIES WHICH MAY REQUIRE PROPER INSURANCE OR PAYMENT UP FRONT BEFORE THE SPECIALIST WILL SEE YOU. It is your responsibility to call the specialist physician to make an appointment. We do not have the ability to refer patients to specialists/physicians that work with specific insurance companies. Please be advised that all financial charges or billing practices are determined by that practice, not the hospital. If your insurance company requires that you see a specialist from their approved list, it is your responsibility to contact your insurance company to make those arrangements. It is also your responsibility to follow any other requirements of your insurance company necessary to obtain coverage for claims submitted. We will bill your insurance; however, you are responsible today for any co-pay amounts. You will receive a separate bill for any services you may have received including: emergency, radiology, or pathology physicians. Patient Name:SOFIA BARLOW I have received this information and was given the opportunity to ask questions. Patient/Dependency Director Name: Patient/Dependency Director Signature: Relationship to Patient: Clinician/Hospital Dependency Director Signature: Please Provide a Telephone Number Where You Can Be Reached: Is it Permissible To Leave a Message? Date: documented in this encounter Plan of Treatment Not on file documented as of this encounter Visit Diagnoses Not on filedocumented in this encounter
--- OUTSIDE RECORDS SUMMARY | 2024-08-09 13:18 | XMS_ITS | Encounter Summary ---
Author Organization [employer] Address [address] [place] [address] Care Team Providers Care Valet Parker Name Role Phone Unavailable Primary Care Provider Unavailabl e Encounter Details Date Type Department Care Team (Late st Contact Info) Description 10/26/2020 Transcribed Document [facility] [place] Family Medicine [facility] [place] [address] ProviderMariela MD [address] [place] [address] Social History Tobacco Use Types Packs/Day [...] Conversion Note - Historical ProviderMD - 10/26/2020 1:52 [place] [address] SOFIA BARLOW :1940 Visit Time:10/26/2020 Your Visit [...] follow up appointment Follow-up as instructed Where: [address] [place] [phone]- Business (1) Follow Up with Follow up with primary care provider When Within 2 to 3 days Comments Call for follow up appointment. Please follow-up with your primary care provider in 2 to 3 days. Return to ED if you experience new or worsening symptoms. If you do not have a primary care provider the patient resource operations scheduler can assist you with establishing care and scheduling follow-up. The Patient Resource Scullion Chief can be contacted at . Allergies Mobic [...] range between ( 1.0 and 7.0 ) Panola #: 1.11 K/uL -- Normal range between ( 0.24 and 0.82 ) Eos #: 1.06 K/uL -- Normal range between ( 0.04 and 0.54 ) Panola %: 8.8 % -- Normal range between [...] provider. Document Revised: 02/24/2017 Document Reviewed: 02/01/2017 [employer] Patient Education ?? 2020 [employer]. Emergency Awareness and Preventative Care STROKE is [...] Assistance with quitting is available by contacting 6-706-HXDS-NOW. This is a free resource providing counseling, [...] was given the opportunity to ask questions. Patient/Human Resources Operations Coordinator Name: Patient/Human Resources Operations Coordinator Signature: Relationship to Patient: Clinician/Hospital Human Resources Operations Coordinator Signature: Please Provide a Telephone Number Where You Can Be Reached: Is it Permissible To Leave a Message? Date: documented in this encounter Plan of Treatment Not on file documented as of this encounter Visit Diagnoses Not on filedocumented in this encounter
--- OUTSIDE RECORDS SUMMARY | 2024-08-09 13:18 | XMS_ITS | Encounter Summary ---
Author Organization [employer] Address [address] [place] [id number] Care Team Providers Care Artificial Inseminator Name Role Phone Unavailable Primary Care Provider Unavailabl e Encounter Details Date Type Department Care Team (Late st Contact Info) Description 08/26/2020 Transcribed Document [facility] [place] [facility] Family Medicine [address] [place] [address] ProviderMariela MD [address] [place], [place] [address] Social History Tobacco Use Types Packs/Day Years [...] Conversion Note - Historical ProviderMD - 08/26/2020 1:20 PM CDT Discharge Summary, OT Entered On: 08/26/2020 13:22 EDT Performed On: 08/26/2020 13:20 EDT by EDIN DRAKE OTR/L Discharge Summary, OT Reason for Discharge : Lack of progress/plateau Discharge Summary Comment, OT : see recent OT note for details. pt requires continued assistance due to her limitations/restrictions unclear of discharge destination, however pt not able to discharge home as she lived alone and is not able to care for self at this time. EDIN DRAKE OTR/L - 08/26/2020 13:20 EDT Electronically signed by Maureen Cornejo Conversion Automotive Service Assistant Cerner at 06/16/2022 8:17 PM CDT documented in this encounter Plan of Treatment Not on file documented as of this encounter Visit Diagnoses Not on filedocumented in this encounter
--- OUTSIDE RECORDS SUMMARY | 2024-08-09 13:18 | XMS_ITS | Encounter Summary ---
Author Organization [employer] Address [address] [place] [address] Care Team Providers Care Special Education Teaching Assistant Name Role Phone Unavailable Primary Care Provider Unavailabl e Encounter Details Date Type Department Care Team (Late st Contact Info) Description 10/26/2020 Transcribed Document [facility] [place] Family Medicine [facility] [place] [address] ProviderMariela MD [place] [address] Social History Tobacco Use Types [...] Historical ProviderMD - 10/26/2020 2:06 AM CDT ED Assessment Entered On: 10/26/2020 3:22 EDT Performed On: 10/26/2020 2:30 EDT by Peggy Rayo [facility] ADMIN Quick Look Assessment Level of Consciousness : Alert, Awake Affect/Behavior : Appropriate, Calm, Cooperative Orientation : Oriented x 4 Skin Temperature : Warm Skin Description : Normal for ethnicity Peggy Rayo RN - 10/26/2020 3:19 EDT ED General-Functional Assess Information Obtained From : Patient Communication Barrier : None Primary Language : Kinyarwanda Any Spiritual/Cultural Needs or Requests : No Currently in Unsafe Situation : No Peggy Rayo RN - 10/26/2020 3:19 EDT Social Habits Smoking Status : Never (less than 100 in lifetime; none in last 30 days) Smokeless Tobacco Status : Never Desires Tobacco Cessation Calc : 0 Peggy Rayo RN - 10/26/2020 3:19 EDT Social History (As Of: 10/26/2020 03:22:11 EDT) Tobacco: Never (less than 100 in lifetime) Smoking Status. Never Smokeless Tobacco Status. (Last Updated: 10/26/2020 02:36:19 EDT by Peggy Rayo, RN) Alcohol: Alcohol Use History No. Use in Last 12 Months: No. (Last Updated: 10/26/2020 02:36:19 EDT by Peggy Rayo, RN) Substance Abuse: Drug Use Hx: No. Use in Last 12 Months: No. (Last Updated: 10/26/2020 02:36:19 EDT by Peggy Rayo RN) Respiratory Respiratory Assessment WDL : WDL Cough : None Respiratory Pattern Description : Regular Peggy Rayo RN - 10/26/2020 3:19 EDT Musculoskeletal Musculoskeletal Assessment WDL : WDL with exceptions (Comment: Right heel pain / swelling [Peggy Rayo RN - 10/26/2020 3:19 EDT] ) Peggy Rayo RN - 10/26/2020 3:19 EDT Integumentary Assessment Skin Description : Normal for ethnicity Skin Temperature : Warm Integumentary Assessment WDL : WDL with exceptions (Comment: Prior to cast removal cap refill >6; and no pulse on pos tib. After cast removal cap refill <3; and pulses in pos tib and pedal [Peggy Rayo RN - 10/26/2020 3:19 EDT] ) Skin Turgor : Elastic Peggy Rayo RN - 10/26/2020 3:19 EDT Neurologic ASMT, ED Neurologic Assessment WDL : WDL Neurological Symptoms : None Level of Consciousness : Alert, Awake Affect/Behavior : Appropriate, Calm, Cooperative Speech : Clear Orientation : Oriented x 4 Pupils Equal, Round, Reactive to Light : Yes Peggy Rayo RN - 10/26/2020 3:19 EDT documented in this encounter Plan of Treatment Not on file documented as of this encounter Visit Diagnoses Not on filedocumented in this encounter
--- OUTSIDE RECORDS SUMMARY | 2024-08-09 13:18 | XMS_ITS | Encounter Summary ---
Author Organization [employer] Address [address] [place] [address] Care Team Providers Care Getter Welder Name Role Phone Unavailable Primary Care Provider Unavailabl e Encounter Details Date Type Department Care Team (Late st Contact Info) Description 08/26/2020 Transcribed Document [facility] [place] Family Medicine [facility] [place] [address] ProviderMariela MD [place] [address] Social History Tobacco Use Types [...] Conversion Note - Historical ProviderMD - 08/26/2020 10:00 PM CDT Pain Assessment Entered On: 08/26/2020 23:42 EDT Performed On: 08/26/2020 22:14 EDT by Jessica Ovalle Lpn Intervention Information: traMADol Performed by Jessica Ovalle Lpn on 08/26/2020 21:14:00 EDT traMADol,50mg Oral Pain Assessment Pain Assessment : Follow-up assessment Pain Scale Goal : 3 Pain Scale Used : 0-10 Scale Pain Improved by Intervention : Yes Jessica Ovalle Lpn - 08/26/2020 23:42 EDT [...]
--- OUTSIDE RECORDS SUMMARY | 2024-08-09 13:18 | XMS_ITS | Encounter Summary ---
Author Organization [employer] Address [address] [place] [address] Care Team Providers Care Campus President Name Role Phone Unavailable Primary Care Provider Unavailabl e Encounter Details Date Type Department Care Team (Late st Contact Info) Description 07/16/2019 Transcribed Document [facility] [place] Family Medicine [address] [place] [address] ProviderMariela MD [address] [place] [address] Social History Tobacco Use Types Packs/Day Years [...] Conversion Note - Historical ProviderMD - 07/16/2019 9:00 PM CDT Pain Assessment Entered On: 07/16/2019 23:43 EDT Performed On: 07/16/2019 21:28 EDT by OSMAR AREVALO RN Intervention Information: indomethacin Performed by OSMAR AREVALO RN on 07/16/2019 20:28:00 EDT indomethacin,25mg Oral Pain Assessment Pain Assessment : Follow-up assessment Pain Improved by : Medication Pain Improved by Intervention : Yes OSMAR AREVALO RN - 07/16/2019 23:43 EDT documented in this encounter Plan of Treatment Not on file documented as of this encounter Visit Diagnoses Not on filedocumented in this encounter
--- OUTSIDE RECORDS SUMMARY | 2024-08-09 13:18 | XMS_ITS | Encounter Summary ---
Author Organization [employer] Address [address] [place] [address] Care Team Providers Care Mapping Editor Name Role Phone Unavailable Primary Care Provider Unavailabl e Encounter Details Date Type Department Care Team (Late st Contact Info) Description 08/27/2020 Transcribed Document [facility] [place] Family Medicine [address] [place] [address] ProviderMariela MD [address] [place] [id number] Social History Tobacco Use Types Packs/Day Years [...] Conversion Note - Historical ProviderMD - 08/27/2020 3:34 PM CDT Attempt to Treat, PT Entered On: 08/27/2020 15:59 EDT Performed On: 08/27/2020 15:34 EDT by JAMES IBANEZ PTA Attempt to Treat Unable to Treat Due To : Patient Refusal Inability to Treat Comment : Pt refused therapy. JAMES IBANEZ PTA - 08/27/2020 15:59 EDT documented in this encounter Plan of Treatment Not on file documented as of this encounter Visit Diagnoses Not on filedocumented in this encounter
--- OUTSIDE RECORDS SUMMARY | 2024-08-09 13:18 | XMS_ITS | Encounter Summary ---
Author Organization [employer] Address [address] [place] [address] Care Team Providers Care Booking Prizer Name Role Phone Unavailable Primary Care Provider Unavailabl e Encounter Details Date Type Department Care Team (Late st Contact Info) Description 08/21/2020 Transcribed Document [facility] [place] Family Medicine [facility] [place] [address] ProviderMariela MD [facility] [place] [address] Social History Tobacco Use Types [...] Conversion Note - Historical ProviderMD - 08/21/2020 7:44 AM CDT Patient: SOFIA GILL Age: 80 Years Sex: Female : 1940 Assessment/Plan POD #1 s/p Right TKA REV--Patient's pain is well controlled. Pull drain today. Keep cast clean, dry and intact. Will plan for d/c to facility. 25 lbs WB status will be difficult for this patient VTE Prophylaxis - Medical Sequential Compression Device Start: 08/20/20 23:04:00 EDT, Bilateral, While in Bedper surgeon, Continuous Order (DONNA DRIVER) Sequential Compression Device Start: 08/20/20 20:23:00 EDT, Bilateral, Length: Knee High, use when in bed or in chair, Continuous Order (SOLOMON MCCRACKEN PA-C) Subjective Patient's pain well controlled Vital Signs T: 36.1 ??C TMIN: 36.1 ??C TMAX: 36.8 ??C HR: 94(Monitored) RR: 16 BP: 118/56 SpO2: 95% HT: 152.4 cm WT: 90.91 kg BMI: 39.1 Oxygen Settings (Last) Oxygen Therapy Mode: CPAP (08/21/20 05:31:00) Oxygen Flow Rate: 2 Liter/Min (08/20/20 21:17:00) Intake & Output Totals Last 24 Hours (7a-7a) Input Total: 2108 mL Output Total: 860 mL Balance: 1248 mL Physical Exam Cast c/d/i SILT 1st and 4th webspace Wiggles toes in cast CR< 2 s all digits Compartments of the leg soft/compressible Medications aspirin, 81 mg= 1 Tab, Oral, BID Benadryl, 25 mg= 1 Tab, Oral, Q4H, PRN Benadryl, 25 mg= 1 Tab, Oral, On-CALL, PRN Chloraseptic Menthol 1.4% topical spray, 5 [place], Oral, Q2H, PRN Colace, 100 mg= 1 Cap, Oral, BID Crestor, 10 mg= 1 Tab, Oral, At Bedtime cyanocobalamin, 5000 mcg= 5 Tab, Oral, Daily Cymbalta, 60 mg= 1 Cap, Oral, Daily dexAMETHasone, 10 mg= 1 mL, IV Push, 1-Time diphenhydrAMINE, 12.5 mg= 0.5 Tab, Oral, At Bedtime, PRN docusate calcium, 240 mg= 1 Cap, Oral, Daily, PRN doxycycline monohydrate, 100 mg= 1 Cap, Oral, Q12H Dulcolax Laxative, 10 mg= 1 Supp, Rectal, 1-Time, PRN Dulcolax Laxative, 10 mg= 1 Supp, Rectal, Daily, PRN DuoNeb 0.5 mg-2.5 mg/3 mL inhalation solution, 3 mL, Nebulized Inhalation , Q4H, PRN fentaNYL, 100 mcg= 2 mL, IV Push, 1-Time ferrous sulfate, 325 mg= 1 Tab, Oral, Daily Flexeril, 5 mg= 0.5 Tab, Oral, TID, PRN fluticasone 50 mcg/inh nasal spray, 2 [place], Nostrils Both, BID, PRN furosemide, 40 mg= 1 Tab, Oral, Daily gabapentin, 300 mg= 1 Cap, Oral, At Bedtime lisinopril, 5 mg= 1 Tab, Oral, Daily loratadine, 10 mg= 1 Tab, Oral, Daily metoclopramide, 5 mg= 1 mL, IV Push, Q4H, PRN Milk of Magnesia 8% oral suspension, 15 mL, Oral, Q6H, PRN MiraLax, 17 Gram= 1 Packet, Oral, Daily multivitamin, 1 Tab, Oral, Daily Mylanta, 30 mL, Oral, Q6H, PRN naloxone, 0.1 mg= 0.25 mL, IV Push, Q5Min, PRN oxyCODONE, 5 mg= 1 Tab, Oral, Q4H, PRN oxyCODONE, 20 mg= 4 Tab, Oral, Q4H, PRN oxyCODONE, 15 mg= 1 Tab, Oral, Q4H, PRN Phenergan, 12.5 mg= 0.5 mL, IV Push, Q6H, PRN Phenergan, 12.5 mg= 0.5 Tab, Oral, Q6H, PRN potassium chloride 20 mEq oral tablet, extended release, 20 mEq= 1 Tab, Oral, BID Protonix, 40 mg= 1 Tab, Oral, Daily senna, 8.6 mg= 1 Tab, Oral, At Bedtime, PRN Sodium Chloride 0.9% intravenous solution 1,000 mL, 1000 mL, IntraVENous Synthroid, 100 mcg= 1 Tab, Oral, Daily traMADol, 50 mg= 1 Tab, Oral, Q6H traZODone, 50 mg= 1 Tab, Oral, At Bedtime, PRN Tylenol, 1000 mg= 2 Tab, Oral, Q8HInt Zofran, 4 mg= 2 mL, IV Push, Q8H, PRN Zofran, 4 mg= 2 mL, IV Push, Q4H, PRN Lab Results Test Name Test Result Date/Time Hgb 10.5 Gram/dL (Low) 08/21/2020 05:44 EDT Hct 32.2 % (Low) 08/21/2020 05:44 EDT Body Fluid Type Synovial fluid 08/20/2020 16:17 EDT Color BF Red 08/20/2020 16:17 EDT Appearance BF Bloody 08/20/2020 16:17 EDT Auto WBC/Nucleated Cells BF 1392 /uL (High) 08/20/2020 16:17 EDT Auto RBC BF [id number] /uL (High) 08/20/2020 16:17 EDT Neutrophils Body Fluid 62 % (High) 08/20/2020 16:17 EDT Lymphocytes Body Fluid 27 % (Low) 08/20/2020 16:17 EDT Monocytes Body Fluid 9 % 08/20/2020 16:17 EDT Eosinophils Body Fluid 2 % 08/20/2020 16:17 EDT ABO/Rh A POS 08/20/2020 13:06 EDT Antibody Screen (Tube) Negative ABSC 08/20/2020 13:06 EDT documented in this encounter Plan of Treatment Not on file documented as of this encounter Visit Diagnoses Not on filedocumented in this encounter
--- OUTSIDE RECORDS SUMMARY | 2024-08-09 13:18 | XMS_ITS | Encounter Summary ---
Author Organization [employer] Address [address] [place] [address] Care Team Providers Care Doctor Of Radiology Name Role Phone Unavailable Primary Care Provider Unavailabl e Encounter Details Date Type Department Care Team (Late st Contact Info) Description 08/27/2020 Transcribed Document [facility] [place] Family Medicine [facility] [place] [address] ProviderMariela MD [address] [place] [address] Social History Tobacco Use Types [...] Conversion Note - Historical ProviderMD - 08/27/2020 12:24 PM CDT Patient: SOFIA GILL Age: 80 years Sex: Female : 1940 Associated Diagnoses: Acute blood loss anemia; Acute kidney injury; Right knee pain; S/p R TKA revision; Status post quadriceps tendon repair; HTN (hypertension); Hypercholesteremia; Hypothyroid; Chronic venous insufficiency; A. fib; Sleep apnea; Obesity (BMI 30-39.9) Author: DONNA JAFFE MD-INT Date of admission 08/20/2020 Date of discharge 08/27/2020 PCP Flavia Gomez NP Orthopedic surgeon, Dr. Hameed Discharging physician, hospitalist, internal medicine, Donna Jaffe MD Discharging diagnosis 1???right knee pain 2???s/p R TKA revision 3???s/p quad tendon repair 4???right lower extremity casting from foot to the groin 5???unsteady 5???high fall risk Other discharge diagnosis 1???paroxysmal A. fib 2???HTN 3???HLP 4???hypothyroidism 5???chronic venous insufficiency 6???HSERRY 7???obesity with BMI of 39.1 8???lymphedema Surgery See operative report dictated by Dr. Hameed History of present illness, past medical history, past surgical history, family history, social history, allergies please see H&P and consult notes Brief history of present illness and course during hospital stay --------- A pleasant 80 years old white female with placated medical history and multiple comorbidities including a history of A. fib, HTN, HLP, hypothyroidism, chronic venous insufficiency, SHERRY, obesity with BMI of 39.1, chronic lymphedema, and a history of multiple orthopedic surgeries on both knees and the quad tendon repair on her left knee was complaining of right knee pain and after medical clearance by her PCP she underwent R TKA revision and quadriceps tendon repair followed by cast placement on her right lower extremity from her right foot up to her groin, by Dr. Hameed. After surgery patient was awake alert cooperative responsive. She has some limited mobility with a high fall risk and unsteadiness when she got up with PT/OT and for her best interest is to go to senior care facility to continue her care and rehab. I had to peer to peer review her condition with that insurance company physician and I broadly explained her condition that she was about to lose her left lower extremity last year but because that she had a talented surgeon who was able to save her left lower extremity and our worry that the same will happen to her right lower extremity, but unfortunately the insurance physician denied her to go to SNF to continue her care and patient now has to go on a private pay. Initially, patient was on femoral nerve block/adductor block in addition to oral pain medication as per Dr. Hameed protocol and her pain was under control. She was on DVT prophylaxis with SCUDs in addition to Dr. Hameed protocol. Initially she had a Castellano catheter which later on removed and her urine output was adequate. She was on scheduled bowel regimen and that she had BMs. 1???paroxysmal A. fib, stable 2???benign essential hypertension, all blood pressure medications were on hold for systolic blood pressure less than 130 and resumed when blood pressure became stabilized 3???hypercholesterolemia, Crestor 10 mg was given orally daily 4???hypothyroidism, Synthroid 100 mcg was given orally daily 5???chronic venous insufficiency, need to be monitored very closely for DVT 6???SHERRY, oxygen on BiPAP put on board 7???obesity with BMI of 39.1, patient is on sleep apnea precautions 8???lymphedema, stable Basic Information ???Seen and examined, today ???Doing well ???Had a good night last night ???Awake alert cooperative responsive under no acute distress ???Pain under control ???High spirit ???No chest pain or trouble breathing ???Participating well with PT/OT ???No headache or dizziness when she got up with PT/OT ???No soreness after PT/OT ???Released by PT/OT to go to senior care facility ???Tolerating well oral p.o. intake ???No nausea or vomiting ???No trouble with urination ???Urine output is adequate ???Vitals reviewed ???Labs reviewed ???Lab results discussed with the patient ???Released by Dr. Hameed to go to rehab ???Discharge medications seen, reviewed and reconciled ???DVT prophylaxis and anticoagulation as per Dr. Hameed protocol ???Patient is medically stable Review of Systems Constitutional: No weakness, No fatigue. Eye: No recent visual problem, No double vision, No visual disturbances. Ear/Nose/Mouth/Throat: No nasal congestion, No sore throat. Respiratory: No shortness of breath, No cough, No wheezing. Cardiovascular: No chest pain, No tachycardia. Gastrointestinal: No nausea, No vomiting. Genitourinary: Negative. Musculoskeletal: Negative. Integumentary: No rash, No pruritus. Neurologic: Alert and oriented X4, no dizziness. Health Status Allergies: Allergies (10) Active Reaction [...] EDT Chloraseptic Menthol 1.4% topical spray: 5 [place], Oral, [place], Q2H, PRN for Sore Throat, Routine, Start [...] EDT fluticasone 50 mcg/inh nasal spray: 2 [place], Nostrils Both, [place], BID, PRN for Allergies, Routine, Start 08/20/20 [...] Start 08/20/20 23:34:00 EDT, 08/20/20 23:34:00 EDT Prescriptions Prescribed acetaminophen 500 mg oral tablet: 2 Tab, Oral, Q8H, X 30 Day(s), # 180 Tab, 0 Refill(s), other reason (Rx) aspirin 81 mg oral delayed release tablet: 1 Tab, Oral, Tab, BID, This is for blood clot prevention., # 90 Tab, 0 Refill(s), other reason (Rx) docusate sodium 100 mg oral capsule: 1 Cap, Oral, Cap, BID, PRN as needed for constipation, # 60 Cap, 0 Refill(s), other reason (Rx) gabapentin 300 mg oral capsule: 1 Cap, Oral, At Bedtime, # 30 Cap, 0 Refill(s), other reason (Rx) oxyCODONE 10 mg oral tablet: 1 Tab, Oral, Q6H, PRN moderate to severe pain, 1 tab moderate (4-6) 2 tab severe (7-10), X 7 Day(s), # 50 Tab, 0 Refill(s), other reason (Rx) traMADol 50 mg oral tablet: 1 Tab, Oral, Q6H, PRN Pain (Mild 1-3), 1 or 2 tabs, X 7 Day(s), # 50 Tab, 0 Refill(s), other reason (Rx) Documented Medications Documented Crestor 10 mg oral tablet: 1 Tab, Oral, Tab, At Bedtime, # 30 Tab, 0 Refill(s) Cymbalta 60 mg oral delayed release capsule: 1 Cap, Oral, DR Cap, Daily, (do not crush or chew), # 30 Cap, 0 Refill(s) MiraLax oral powder for reconstitution: 17 Gram, Oral, Daily, 0 Refill(s) Multiple Vitamins oral tablet: 1 Tab, Oral, Tab, Daily, 0 Refill(s) Synthroid 100 mcg (0.1 mg) [...] Refill(s) fluticasone 50 mcg/inh nasal spray: 2 [place], Nostrils Both, [place], BID, PRN Allergies, 0 Refill(s) furosemide 40 mg oral tablet: 1 Tab, Oral, Daily, 0 Refill(s) lisinopril: 5 mg, Oral, Daily, 0 Refill(s) potassium chloride 20 mEq oral tablet, extended release: 1 Tab, Oral, BID, 0 Refill(s), Medications (40) Active Scheduled: (18) [...] Oral, Daily fluticasone 0.05% nasal spray 2 [place], Nostrils Both, BID magnesium hydroxide 8% liq [...] Oral, Q4H phenol 1.4% throat spray 5 [place], Oral, Q2H senna 8.6 mg tab 8.6 [...] Sleep apnea Physical Examination VS/Measurements Vital Measurements 08/27/2020 9:23 EDT Systolic Blood Pressure 95 mmHg Diastolic Blood Pressure 54 mmHg LOW Mean Arterial Pressure (MAP)-BMDI 63 Temperature Source Oral Temperature Mode Fahrenheit Temperature, Fahrenheit 98.4 Deg F Clinical Temperature, C 36.9 Deg C Heart Rate Monitored 77 bpm Respiratory Rate 15 Breaths/Min Oxygen Saturation 100 % 08/27/2020 6:02 EDT Systolic Blood Pressure 119 mmHg Diastolic Blood Pressure 53 mmHg LOW Mean Arterial Pressure (MAP)-BMDI 68 Temperature Source Oral Temperature Mode Fahrenheit Temperature, Fahrenheit 97.7 Deg F Clinical Temperature, C 36.5 Deg C Heart Rate Monitored 83 bpm Oxygen Saturation 98 % 08/27/2020 1:15 EDT Systolic Blood Pressure 128 mmHg Diastolic Blood Pressure 78 mmHg Mean Arterial Pressure (MAP)-BMDI 91 Temperature Source Oral Temperature Mode Fahrenheit Temperature, Fahrenheit 97.8 Deg F Clinical Temperature, C 36.6 Deg C Heart Rate Monitored 74 bpm Respiratory Rate 16 Breaths/Min Oxygen Saturation 100 % General: Alert and oriented, No acute [...] Lymphatics: No lymphadenopathy neck, axilla, groin. Musculoskeletal: Normal strength, No swelling. Integumentary: Warm, Intact, No rash, WOUND STABLE. Neurologic: Alert, Oriented, No focal [...] % 23.7 % Lymph # 2.60 K/uL [place] % 11.7 % [place] # 1.28 K/uL HI Eos % 7.6 % HI Eos # 0.83 K/uL HI Baso % 0.2 % Baso # 0.02 K/uL Slide Review No IG# 0 x10(3)/uL IG% 0 % . Condition: Stable. Discharge Plan Discharge Summary Plan Discharge Status: stable. Orders Order Profile (Selected) Inpatient Orders Ordered Discharge Notification Pharmacy: Start: 08/27/20 12:23:32 EDT Discharge: Start: 08/27/20 12:23:00 EDT, Discharge to: [facility] unit[facility]facility. Diagnosis Acute blood loss anemia - Working, [...] Medical. Obesity (BMI 30-39.9) - Admitting, Medical. Course Improving. Stable. Plan/ pt is HD & CLINICALLY STABLE AFEBRILE OK TO D/C senior care facility to continue her care and rehab. Orders Order Profile (Selected) Prescriptions Prescribed acetaminophen 500 mg oral tablet: 2 Tab, Oral, Q8H, X 30 Day(s), # 180 Tab, 0 Refill(s), other reason (Rx) aspirin 81 mg oral delayed release tablet: 1 Tab, Oral, Tab, BID, This is for blood clot prevention., # 90 Tab, 0 Refill(s), other reason (Rx) docusate sodium 100 mg oral capsule: 1 Cap, Oral, Cap, BID, PRN as needed for constipation, # 60 Cap, 0 Refill(s), other reason (Rx) gabapentin 300 mg oral capsule: 1 Cap, Oral, At Bedtime, # 30 Cap, 0 Refill(s), other reason (Rx) oxyCODONE 10 mg oral tablet: 1 Tab, Oral, Q6H, PRN moderate to severe pain, 1 tab moderate (4-6) 2 tab severe (7-10), X 7 Day(s), # 50 Tab, 0 Refill(s), other reason (Rx) traMADol 50 mg oral tablet: 1 Tab, Oral, Q6H, PRN Pain (Mild 1-3), 1 or 2 tabs, X 7 Day(s), # 50 Tab, 0 Refill(s), other reason (Rx) Documented Medications Documented Crestor 10 mg oral tablet: 1 Tab, Oral, Tab, At Bedtime, # 30 Tab, 0 Refill(s) Cymbalta 60 mg oral delayed release capsule: 1 Cap, Oral, DR Cap, Daily, (do not crush or chew), # 30 Cap, 0 Refill(s) MiraLax oral powder for reconstitution: 17 Gram, Oral, Daily, 0 Refill(s) Multiple Vitamins oral tablet: 1 Tab, Oral, Tab, Daily, 0 Refill(s) Synthroid 100 mcg (0.1 mg) [...] Refill(s) fluticasone 50 mcg/inh nasal spray: 2 Jaroso, Nostrils Both, [place], BID, PRN Allergies, 0 Refill(s) furosemide 40 mg oral tablet: 1 Tab, Oral, Daily, 0 Refill(s) lisinopril: 5 mg, Oral, Daily, 0 Refill(s) potassium chloride 20 mEq oral tablet, extended release: 1 Tab, Oral, BID, 0 Refill(s). Impression and Plan twt [id number] patient seen and examined, medical record reviewed, labs reviewed, vitals reviewed, medications reviewed and reconciled, discussed with Pharm.D., discussed with the patient, discussed with the staff, discussed with PT/OT, discharge orders placed, discharge summary note dictated. documented in this encounter Plan of Treatment Not on file documented as of this encounter Visit Diagnoses Not on filedocumented in this encounter
--- OUTSIDE RECORDS SUMMARY | 2024-08-09 13:18 | XMS_ITS | Encounter Summary ---
Author Organization [employer] Address [address] [place] [id number] Care Team Providers Care Channel Development Director Name Role Phone Unavailable Primary Care Provider Unavailabl e Encounter Details Date Type Department Care Team (Late st Contact Info) Description 08/21/2020 Transcribed Document [facility] [place] Family Medicine [facility] [place] [address] ProviderMariela MD [facility] [place] [address] Social History Tobacco Use Types [...] Cerner Conversion Note - Historical Provider, - 08/21/2020 11:06 AM CDT Treatment Intervention, PT Entered On: 08/25/2020 11:27 EDT Performed On: 08/25/2020 11:20 EDT by WM MORROW PTA General Information, PT Visit Type, PT : [...] 11:06 PT Additional Treatment Ordered By: CHAITANYA SIMON PT Active Diagnoses : Presence of right [...] reduced mobility Admission Date : 08/20/2020 04:48 Personal Devices : Personal Devices No Devices Recorded Assistive Devices : Assistive Devices No Devices Recorded Precautions in Place : Fall prevention measures, Fall prevention measures, high risk, Other: no quad activity permitted and NWB RLE WM MORROW PTA - 08/25/2020 11:20 EDT General Status Patient Received Status : Supine in bed Treatment Start Time : 08/25/2020 11:00 EDT Patient Left Status : Up in chair RN/PCT Informed Comment : RN ok'd session. Treatment End Time : 08/25/2020 11:15 EDT Treatment Time : 15 Minute(s) WM MORROW PTA - 08/25/2020 11:20 EDT Edu Topics Physical Therapy Education Grid Safety : Needs further teaching WM MORROW PTA - 08/25/2020 11:20 EDT Plan of Care, PT PT Tx Plan/Goals Established w Patient : Yes WM MORROW PTA - 08/25/2020 11:20 EDT Residential Goals Other PT LTG Grid Goal #1 [...] Comment : ceiling lift used for bed to chair WM MORROW PTA - 08/25/2020 11:20 EDT WM MORROW PTA - 08/25/2020 11:20 EDT WM MORROW, BOBO - 08/25/2020 11:20 EDT Treatment Note Subjective Comment : Agreeable to transfer to chair via lift. Patient told nursing that she is not allowed to move a muscle . Patient reports no pain. Patient's Response to Treatment : Some fatigue. Additional Objective Information : Reviewed some ther ex to perform on LLE, ankle pumps, glut and quad sets, but patient did not perform. Rolled side to side in bed min x 1 wiht cues to use arms and LLe to push off to roll towards R side. Lift pad was placed under patient for transfer. Patient's R LE was propped up on 2 pillows and left wiht call light. Nursing was notified that patient is in chair, patient instructed to call patient when she is ready to trasnfer back to bed. Assessment : Bed moblity slightly better today wiht patient using arms to roll. Needs encouargement to participate. Plan for Treatment : Cont .PT WM MORROW PTA - 08/25/2020 11:20 EDT [place] PT Charges POWER SWEEPER OPERATOR PT Ther Activities Ea 15 Min-POWER SWEEPER OPERATOR : 1 WM MORROW PTA - 08/25/2020 11:20 EDT documented in this encounter Plan of Treatment Not on file documented as of this encounter Visit Diagnoses Not on filedocumented in this encounter
--- OUTSIDE RECORDS SUMMARY | 2024-08-09 13:19 | XMS_ITS | Encounter Summary ---
Author Organization [employer] Address [address] [place] [address] Care Team Providers Care Game Advisor Name Role Phone Unavailable Primary Care Provider Unavailabl e Encounter Details Date Type Department Care Team (Late st Contact Info) Description 07/17/2019 Transcribed Document [facility] [address] [place] [address] Shawanda Barahona MD [address] [place] [address] Social History Tobacco Use Types Packs/Day Years [...] Conversion Note - Shawanda Barahona MD - 07/17/2019 5:24 PM EDT Patient: SOFIA GILL Age: 79 years [...] no fever, rash, sore throat, no diarrhea 07/17/19; doing well; no events overnight; no fever, rash, sore throat ros see hpi Objective Vitals Signs (last 24 hrs) Last Charted Minimum Maximum Temp 98.8 (JULY 16:00) 97.6 (JULY 16:00) 98.5 (JULY 15:) Mon HR 89 (JULY 16:00) 88 (JULY 15:00) 116 (JULY 16:00) Resp Rate 19 (JULY 16:00) 16 (JULY 15:00) 19 (JULY 16:00) SBP 132 (JULY 16:00) 117 (JULY 15:00) 132 (JULY 16:00) DBP L 50 (JULY 16:00) L 44 (JULY 15:00) L 58 (JULY 16:00) SpO2 100 (JULY 16:00) 96 (JULY 15:00) 100 (JULY 16:00) Physical Examination: Gen: Alert, arousable, pleasant HEENT: NC/AT, no ext oral lesions, no scleral icterus RESP:clear regino. CARD: s1s2 no m GI: nondistended; soft/bs+Ve MS: 2+ edema bilaterally knees, right knee c/d/i, left knee in brace SKIN: No eruptions, lesions, or rashes, PICC in place r Labs:Labs (Last four charted values) WBC 8.2 (JULY 16) 7.1 (JULY 12) 7.2 (JULY 09) 6.3 (JULY 06) HB L 8.0 (JULY 16) L 7.7 (JULY 12) L 8.0 (JULY 09) L 7.9 (JULY 06) HCT L 25.5 (JULY 16) L 24.9 (JULY 12) L 25.3 (JULY 09) L 25.1 (JULY 06) Plt H 451 (JULY 16) H 422 (JULY 12) H 398 (JULY 09) H 430 (JULY 06) Na 139 (JULY 16) 138 (JULY 12) L 133 (JULY 09) 136 (JULY 06) K 4.4 (JULY 16) 4.9 (JULY 12) 4.4 (JULY 09) 4.0 (JULY 06) Cl 103 (JULY 16) 103 (JULY 12) L 101 (JULY 09) L 99 (JULY 06) CO2 30 (JULY 16) 30 (JULY 12) 27 (JULY 09) 32 (JULY 06) BUN H 38 (JULY 16) H 38 (JULY 12) H 30 (JULY 09) H 29 (JULY 06) Cr 0.80 (JULY 16) 0.70 (JULY 12) 0.70 (JULY 09) 0.70 (JULY 06) Glu R H 114 (JULY 16) 104 (JULY 12) H 116 (JULY 09) H 115 (JULY 06) Ca 8.7 (JULY 16) 9.0 (JULY 12) 8.4 (JULY 09) 8.6 (JULY 06) PT 11.6 (JULY 15) 11.5 (JULY 12) 11.7 (JULY 09) 11.8 (JULY 06) INR 1.1 (JULY 15) 1.1 (JULY 12) 1.1 (JULY 09) 1.1 (JULY 06) AST 14 (JULY 16) 16 (JULY 12) 15 (JULY 09) 12 (JULY 06) ALT L 12 (JULY 16) L 11 (JULY 12) 14 (JULY 09) 13 (JULY 06) ALK P 57 (JULY 16) 49 (JULY 12) 49 (JULY 09) 45 (JULY 06) T Bili 0.2 (JULY 16) 0.4 (JULY 12) 0.3 (JULY 09) 0.3 (JULY 06) PTN 7.3 (JULY 16) 7.2 (JULY 12) 7.5 (JULY 09) 7.2 (JULY 06) ALB L 2.4 (JULY 16) L 2.3 (JULY 12) L 2.6 (JULY 09) L 3.1 (JULY 06) Micro: [facility]: 06/15 [facility] Blood cultures positive for group B [...] Keflex and Ceftriaxone Assessment: Despite bacteremia, substantial infection patient has been treated for salvage of hardware components and orthopedics has commented that patient would have to have AKA if hardware was removed. Plan is for salvage of limb so long course of iv abx followed by chronic suppression is best option at present RECOMMENDATIONS/PLANS: - continue ceftriaxone 2 gm daily and plan on 8 weeks of therapy from 06/20 with PICC line followed by chronic lifelong oral suppression -physical therapy follow for adverse drug effects; diarrhea, elevated LFT's, fungal superinfection etc to go to [place] wednesday if orthopedics agrees d/w ed case manager documented in this encounter Plan of Treatment Not on file documented as of this encounter Visit Diagnoses Not on filedocumented in this encounter
--- OUTSIDE RECORDS SUMMARY | 2024-08-09 13:19 | XMS_ITS | Encounter Summary ---
Author Organization [employer] Address [address] [place] [address] Care Team Providers Care Vp Organizational Development Name Role Phone Unavailable Primary Care Provider Unavailabl e Encounter Details Date Type Department Care Team (Late st Contact Info) Description 08/21/2020 Transcribed Document [facility] Medicine [facility] [place] [address] ProviderMariela MD [facility] [place] [address] Social History Tobacco Use Types [...] Conversion Note - Historical Provider, - 08/21/2020 1:41 PM CDT Treatment Intervention, OT Entered On: 08/23/2020 14:23 EDT Performed On: 08/23/2020 11:34 EDT by FELTON RUSH OTR/Bartolo General Information, OT Visit Type, OT : Treatment Note Patient Orders : Order Date Order Ordering 08/20/2020 20:23 OT Evaluation and Treatment Ordered By: SOLOMON MCCRACKEN PA-C 08/20/2020 20:23 OT Treatment Instructions Ordered By: SOLOMON MCCRACKEN PA-C 08/21/2020 13:41 Occupational Therapy Additional Tx Ordered By: Active Diagnoses : Presence of right artificial knee joint 08/20/2020 12:00 Cardiac arrhythmia, unspecified 08/20/2020 12:00 Essential (primary) hypertension 08/20/2020 12:00 Hypothyroidism, unspecified 08/20/2020 12:00 Obesity, unspecified 08/20/2020 12:00 Other specified postprocedural states 08/20/2020 12:00 Pain in right knee 08/20/2020 12:00 Presence of right artificial knee joint 08/20/2020 12:00 Pure hypercholesterolemia, unspecified 08/20/2020 12:00 Sleep apnea, unspecified 08/20/2020 12:00 Venous insufficiency (chronic) (peripheral) Therapy Diagnosis, OT : aftercare following R knee surgery Admission Date : 08/20/2020 04:48 Personal Devices : Personal Devices No Devices Recorded Assistive Devices : Assistive Devices No Devices Recorded Precautions in Place : Fall prevention measures, Fall prevention measures, high risk, Other: no quad activity permitted and NWB RLE General Information Comment, OT : NWB RLE; full leg cast on R; no R quad activation allowed. Pt also has a torn/detached L patellar tendon; she is unable to perform a SLR with LLE. FELTON RUSH OTR/L - 08/23/2020 14:15 EDT General Status Patient Received Status : Supine in bed Treatment Start Time : 08/23/2020 11:34 EDT Patient Left Status : Supine in bed, Up in chair, RN/PCT informed, All needs met and within reach, Other: Sling under pt RN/PCT Informed Comment : RN sidney'ed to see Treatment End Time : 08/23/2020 12:00 EDT Treatment Time : 26 Minute(s) Actual Treatment Time : 26 Minute(s) FELTON RUSH OTR/L - 08/23/2020 14:15 EDT Functional Mobility Mobility Grid Bed to Chair : Rehab Total assistance (Comment: x 2; ceiling lift used [FELTON RUSH OTR/L - 08/23/2020 14:15 EDT] ) FELTON RUSH OTR/L - 08/23/2020 14:15 EDT Functional MobilityComment : Ceiling lift used to transfer pt bed to recliner with total A x 2; therapists held/supported RLE throughout to prevent pt from performing any quad activation. FELTON RUSH OTR/L - 08/23/2020 14:15 EDT Education OT Occupational Therapy Education Grid Activity of Daily Living Training : Verbalizes understanding Functional Mobility Training : Verbalizes understanding Positioning : Verbalizes understanding Precaution/Contraindication : Verbalizes understanding Role of Occupational Therapy : Verbalizes understanding RUSHFELTON OTR/L - 08/23/2020 14:15 EDT Teaching/Learning Assessment Barriers To Learning : Acuity of Illness Individuals Taught : Patient Readiness to Learn : Cooperative Baseline Knowledge of Topic : Good Readiness to Learn : Explanation Learning Style Preferences Patient : None VICTOR MANUEL ODELL YA - 08/23/2020 14:15 EDT Plan of Care, OT OT Tx Plan/Goals Established w Patient : Yes VICTOR MANUEL ODELL YA - 08/23/2020 14:15 EDT Client Relations Associate Goals, OT Other LTG Grid Goal #1 Goal #2 Goal #3 Goal #4 Goal : pt to verbalize understanding of BUE HEP to improve strength for improved ADL/transfers performance. pt to roll side to side mod assist for mgt of pericare . pt to perform UB ADL with S/setup assess OOB mobility and establish goals as appropriate Date to Meet : 08/28/2020 EDT 08/28/2020 EDT 08/28/2020 EDT Goal Status : Initial goal Progressing, continue Initial goal Goal met Date Met : 08/23/2020 EDT Comment : Max A x 2 on 08/23/20; RLE supported by therapists Total A x 2 with use of ceiling lift; no additional goal warrented due to restrictings, pre-morbid limitations FELTON RUSH OTR/Bartolo - 08/23/2020 14:15 EDT FELTON RUSH OTR/L - 08/23/2020 14:15 EDT FELTON RUSH OTR/L - 08/23/2020 14:15 EDT FELTON RUSH OTR/L - 08/23/2020 14:15 EDT Treatment Note Subjective Comment : Pt agreeable with tx; she states she would like to get up to the chair. Patient's Response to Treatment : Good. Additional Objective Information : Self care; see note. Assessment : Some progress; 1 initial goal met. Plan for Treatment : Continue with POC. FELTON RUSH OTR/L - 08/23/2020 14:15 EDT Pain Assessment Pain Scaled Used : 0-10 Pain scale Pain Score Pre-Intervention : 0 FELTON RUSH OTR/L - 08/23/2020 14:15 EDT Image 1 - Images currently included in the form version of this document have not been included in the text rendition version of the form. [facility] OT Charges OT Selfcare/Hm Mgmt Ea 15 Min : 2 FELTON RUSH, OTR/L - 08/23/2020 14:15 EDT documented in this encounter Plan of Treatment Not on file documented as of this encounter Visit Diagnoses Not on filedocumented in this encounter
--- OUTSIDE RECORDS SUMMARY | 2024-08-09 13:19 | XMS_ITS | Encounter Summary ---
Author Organization [employer] Address [address] [place] [address] Care Team Providers Care Snow Plow Tractor Operator Name Role Phone Unavailable Primary Care Provider Unavailabl e Encounter Details Date Type Department Care Team (Late st Contact Info) Description 08/21/2020 Transcribed Document [facility] [place] [facility] [place] [address] ProviderMariela MD [address] [place] [address] Social History Tobacco Use Types Packs/Day [...] Conversion Note - Historical ProviderMD - 08/21/2020 1:51 PM CDT Nutrition Assessment Entered On: 08/21/2020 14:29 EDT Performed On: 08/21/2020 15:30 EDT [address] Oma Berg RD, LD Nutrition Assessment Nutrition Assessment Reason : Automatic referral Oma Berg RD, LD - 08/21/2020 14:29 EDT Nutrition Recommendations Dietitian Recommendations : (08/21) RD consult rec'd for wt loss with decrese in appetite (MST=2), and keto diet. RD spoke with pt. Pt admitted s/p right patello tendon repair. Pt was wanting a high fat, low carb diet to help her lose weight. Pt reported she has done this before and needs to lose weight for her repair to be successful. Assisted pt in ordering meals and provided menu and instructions on how to order. Pt verbalized understanding. Pt weight has been stable. Pt is eating well on regular diet. Rest of chart reviewed. No nutritional diagnosis identified at this time. RD to rescreen in 7-10 days or available prn. Oma Berg, TE, LD - 08/21/2020 15:28 EDT Electronically signed by Chantal mandeep Conversion Software Implementation Project Manager Cerner at 06/16/2022 8:11 PM CDT documented in this encounter Plan of Treatment Not on file documented as of this encounter Visit Diagnoses Not on filedocumented in this encounter
--- OUTSIDE RECORDS SUMMARY | 2024-08-09 13:19 | XMS_ITS | Encounter Summary ---
Author Organization [email or web address] Address [address] [place] [address] Care Team Providers Care Professor Of Criminal Justice Name Role Phone Unavailable Primary Care Provider Unavailabl e Encounter Details Date Type Department Care Team (Late st Contact Info) Description 07/17/2019 Transcribed Document [facility] [place] Family [place] [facility] [place] [address] ProviderMariela MD [facility] [place] [address] Social History Tobacco Use Types [...] Cerner Conversion Note - Historical ProviderMD - 07/17/2019 9:00 AM CDT Pain Assessment Entered On: 07/17/2019 10:30 EDT Performed On: 07/17/2019 9:44 EDT by Marisela Rangel RN Intervention Information: indomethacin Performed by Marisela Ranegl RN on 07/17/2019 08:44:00 EDT indomethacin,25mg Oral Pain Assessment Pain Assessment : Follow-up assessment Pain Scale Used : 0-10 Scale Pain Improved by Intervention : Yes Marisela Rangel RN - 07/17/2019 10:30 EDT Pain Scale Intensity : 3 Marisela Rangel RN - 07/17/2019 10:30 EDT Image 4 - Images currently included in the form version of this document have not been included in the text rendition version of the form. documented in this encounter Plan of Treatment Not on file documented as of this encounter Visit Diagnoses Not on filedocumented in this encounter
--- OUTSIDE RECORDS SUMMARY | 2024-08-09 13:19 | XMS_ITS | Encounter Summary ---
Author Organization [employer] Address [address] [place] [address] Care Team Providers Care Tv News Director Name Role Phone Unavailable Primary Care Provider Unavailabl e Encounter Details Date Type Department Care Team (Late st Contact Info) Description 07/17/2019 Transcribed Document [facility] [place] Family Medicine [facility] [place] [address] ProviderMariela MD [facility] [place] [address] Social History Tobacco Use Types [...] Conversion Note - Historical ProviderMD - 07/17/2019 11:29 AM CDT Care Management Assessment/Plan Entered On: 07/17/2019 11:32 EDT Performed On: 07/17/2019 11:29 EDT by СВЕТЛАНА WANG Care Management Note Care Management Note : 07/17/[address] Snyder (ID), he is in agreement to discharge to SNF on Wednesday, he would like for her to follow-up with the consulting ID (Dr. Stock) in 1 week upon discharge. TELEHEALTH appointment scheduled with Dr. Stock for 07/25/2019 @ 1600. [facility] will call Lexy to facilitate this visit. Care Management Note Report : СВЕТЛАНА WANG - 07/17/19 10:32:31 07/17/2019 faxed clinical review the [facility] at [phone] to request approval for extended ltac services. Auth#[id number], awaiting approval. CM/Discharge plan attached to review. СВЕТЛАНА WANG - 07/17/19 09:06:05 07/17/[address] Jaffe's progress note, yahaira may be removed if okay with Dr. Saenz's office. Per our WOCN, Dr. Saenz's office said they need to see her before they make that decision. Appt scheduled for tomorrow, 07/18/2019 @ 1415; [facility] round-trip transport scheduled for 1315 pick-up ([id number]). Spoke with Lexy Valdez, they have not yet began the patient's insurance preauth, they will today, and be ready to admit on Wednesday. Dr. Jaffe notified and in agreement. [facility] rescheduled for discharge 07/19/2019 @ 1400 ([id number]). YOANNA ARAUJO RN - 07/14/19 15:41:31 Yoanna Araujo 07/13/2019 1500 - patient has accepted bed offer at [facility], she will be transported on WednesdayJuly 16 at 2pm by [facility] Confirmation # [id number]. She declined the bed offer at [facility]. Dr. Jaffe notified of discharge plan. YOANNA ARAUJO RN - 07/13/19 14:37:44 Yoanna Araujo 07/13/2019 1400 received call from Ratna with [facility] offering patient a bed, Received call from Isabelle with [facility] she is looking at patient and needed a current height and weight. Still waiting to see if any other bed offers come through. I also sent referral to [facility]. YOANNA ARAUJO, EDDIE - 07/13/19 11:04:03 Yoanna Araujo 07/13/2019 1100 faxed out referral for placement for patient to [facility] nursing [facility] rehab, [facility] and [facility] facilities. Awaiting call backs. СВЕТЛАНА WANG - 07/12/19 12:19:17 07/12/2019 Fax received from [facility] with approval for LTAC services with a request for updated discharge plans and clinical info to support needs if not discharged. Auth#[id number]. Clinical review or discharge summary to be faxed by 07/17/2019. YOANNA ARAUJO RN - 07/12/19 08:39:48 Yoanna Araujo 07/12/2019 0830 - faxed clinical review the [facility] at [phone] to request approval for extended ltac services. Auth#[id number], awaiting approval. YOANNA ARAUJO RN - 06/29/19 17:47:08 Yoanna Araujo 06/29/2019 1330 prior to admission patient lived at home by herself, she was independent with all ADLs. She states that she has a ramp on the front of her house and she has stairs inside of the house but does not have to go up them. She has had several falls at home - she states that she feels like her legs give out and she falls. She denies ever requiring dialysis. She [facility] and she has been to the [place] [facility] and [facility] in the past. She has the following equipment at home: wheel chair, walker, cane and shower chair. Her discharge plan is to go to rehab prior to returning home. PCP: Flavia MARQUEZ [address] [place] [address] Memorial Counselor: Dr. Shemar Barger [address] [place] [address] [address] Clemente Del Rio MD - Rheumatology - [address] [place] [address] Preferences: Home Health: [facility]: no preferences DME: [facility] - [address] [facility] [address], [place] [address] Care Home: [place] [facility] facility: no preferences Will continue to monitor patient for anticipated discharge needs YOANNA ARAUJO RN - 06/29/19 08:30:20 Yoanna Araujo 06/29/2019 0830 received fax from [facility] with approval for extended ltac coverage with next clinical review due on 07/12/2019. Auth#[id number]. Will continue to follow for anticipated discharge needs. YOANNA ARAUJO RN - 06/28/19 08:35:06 Yoanna Araujo 06/28/2019 0830 Faxed clinical review to [facility] at to request approval for extended Ltac services. Auth#[id number]. Pending Approval. Documentation Status Complete : Yes СВЕТЛАНА WANG - 07/17/2019 11:29 EDT documented in this encounter Plan of Treatment Not on file documented as of this encounter Visit Diagnoses Not on filedocumented in this encounter
--- OUTSIDE RECORDS SUMMARY | 2024-08-09 13:19 | XMS_ITS | Encounter Summary ---
Author Organization [employer] Address [address] [place] [address] Care Team Providers Care Senior Software Development Engineer Name Role Phone Unavailable Primary Care Provider Unavailabl e Encounter Details Date Type Department Care Team (Late st Contact Info) Description 10/26/2020 Transcribed Document [facility] [place] [facility] [place] [address] ProviderMariela MD [address] [place] [address] Social History Tobacco Use Types Packs/Day [...] Conversion Note - Historical ProviderMD - 10/26/2020 2:38 AM CDT Pain Assessment Entered On: 10/26/2020 3:22 EDT Performed On: 10/26/2020 3:19 EDT by Peggy Rayo RN Intervention Information: morphine Performed by Peggy Rayo RN on 10/26/2020 02:15:00 EDT morphine,4mg IV Push,Right Hand Pain Assessment Pain Assessment : Follow-up assessment Pain Scale Used : FACES Pain Intervention, Drug : Medicated Pain Improved by Intervention : Yes Peggy Rayo RN - 10/26/2020 3:19 EDT Pain Scale Intensity : 3 Peggy Rayo RN - 10/26/2020 3:19 EDT Image 4 - Images currently included in the form version of this document have not been included in the text rendition version of the form. documented in this encounter Plan of Treatment Not on file documented as of this encounter Visit Diagnoses Not on filedocumented in this encounter
--- OUTSIDE RECORDS SUMMARY | 2024-08-09 13:19 | XMS_ITS | Encounter Summary ---
Author Organization [employer] Address [address] [place] [address] Care Team Providers Care Fire Alarm Installer Name Role Phone Unavailable Primary Care Provider Unavailabl e Encounter Details Date Type Department Care Team (Late st Contact Info) Description 08/21/2020 Transcribed Document [facility] [place] [facility] [place] [address] ProviderMariela MD [address] [place] [id number] Social History Tobacco Use Types Packs/Day Years [...] Conversion Note - Historical ProviderMD - 08/21/2020 2:00 AM CDT Solar Lab Technician Details Entered On: 08/21/2020 4:12 EDT Performed On: 08/21/2020 2:00 EDT by Hannah Cardoso RN Order Details Isolation Precautions Order Detail : Standard Precautions Order Detail : N/A IV Order Detail : 1 Oxygen Order Detail : 1 Nurse Collect Order Detail : 0 Lift/Transfer : Moderate assist Central Line Order Detail : Yes Arterial Line : No Patient Needs Meds Crushed/Liquid : No Hannah Cardoso RN - 08/21/2020 4:12 EDT Electronically signed by Maureen Cornejo Conversion Out And Out Cigar Maker Hand Cerner at 06/16/2022 8:17 PM CDT documented in this encounter Plan of Treatment Not on file documented as of this encounter Visit Diagnoses Not on filedocumented in this encounter
--- OUTSIDE RECORDS SUMMARY | 2024-08-09 13:19 | XMS_ITS | Encounter Summary ---
Author Organization [employer] Address [address] [place] [address] Care Team Providers Care Curriculum Manager Name Role Phone Unavailable Primary Care Provider Unavailabl e Encounter Details Date Type Department Care Team (Late st Contact Info) Description 07/16/2019 Transcribed Document EM Family Medicine [facility] [place] [address] ProviderMariela MD [facility] [place] [address] Social History Tobacco Use Types [...] Conversion Note - Historical ProviderMD - 07/16/2019 10:27 AM CDT Patient: SOFIA GILL Age: 79 years Sex: Female : 1940 Associated Diagnoses: None Author: Jacek Nunn, Pharmacist-Resident HPI: 06/15 Pt admitted to [facility] with infected L-TKA with chronic extensor rupture, sepsis 06/20 OR for revision I&D and patella tendon repair. Acute respiratory insufficiency and encephalopathy. 2L N/C reg diet, CPAP HS PICC, purewick. Needs 8 wks abx. Consult: Warfarin Indication: DVT Prophylaxis s/p Ortho surgery Goal: less than 2 Consulting MD: Kyra Mandujano) / Alannah ID On Board: Tyrell Current Antibiotics: Ceftriaxone 2gm IV Q24H (start day 06/16)--plan is for 8 weeks of therapy with PO suppression thereafter per ID Previous Antibiotics: Fluconazole 100mg (start 06/24-06/27) BMI BMI: 43.7 Weight: 98.18kg - Bed scale Height: 149.86cm (4ft ) - Chart Vitals Signs (last 24 hrs) Last Charted Minimum Maximum Temp 98.6 (JULY 15 07:00) 98.6 (JULY 15 07:00) 98.1 (JULY 14 15:00) Mon HR 88 (JULY 15 07:00) 88 (JULY 15 07:00) 95 (JULY 14 19:00) Resp Rate 16 (JULY 15 07:00) 15 (JULY 14 23:00) 18 (JULY 14 15:00) SBP 96 (JULY 15 07:00) 96 (JULY 15 07:00) H 150 (JULY 14:00) DBP L 44 (JULY 15 07:00) L 44 (JULY 15 07:00) L 52 (JULY 14 19:00) MAP 61 (JULY 14 15:00) 61 (JULY 14 15:00) 61 (JULY 14 15:00) SpO2 98 (JULY 15 07:00) 97 (JULY 14 15:00) 100 (JULY 14:00) Labs (Last four charted values) WBC 7.1 (JULY [...] 8.6 (JULY 06) 8.4 (JULY 05) PT 11.6 (JULY 15) 11.5 (JULY 12) 11.7 (JULY 09) 11.8 (JULY 06) INR 1.1 (JULY 15) 1.1 (JULY 12) 1.1 (JULY 09) 1.1 (JULY 06) AST 16 (JULY 12) 15 (JULY 09) [...] 3.1 (JULY 06) L 2.9 (JULY 05) Creatinine Clearance (Current Encounter/Past 24 Hours) No Creatinine Clearance Results Found (Past 24 Hours) Culture Results: 06/16 & 06/20 knee tissue strep agal Group B Date 06/27 06/28 06/29 07/01 07/03 07/06 INR 1.1 --- 1.1 1.1 1.1 1.1 Dose 4mg 2mg 2mg 2 2 2 Date 07/09 07/12 07/15 INR 1.1 1.1 1.1 Dose 2mg 2mg 2mg A/P: 1. Patient's orthopedic surgeon wants to use warfarin 2mg daily for DVT prophylaxis instead of lovenox. Continue Warfarin 2mg daily as INR is stable goal <2. 2. INR is not rising on warfarin 2mg (as is the goal per ortho group). INR check to Q3days. Rx to follow up on Wednesday Jacek Nunn PharmD PGY1 Financial Aid Counselor Pager: [phone], Ext. [phone] documented in this encounter Plan of Treatment Not on file documented as of this encounter Visit Diagnoses Not on filedocumented in this encounter
--- OUTSIDE RECORDS SUMMARY | 2024-08-09 13:19 | XMS_ITS | Encounter Summary ---
Author Organization [employer] Address [address] [place] [address] Care Team Providers Care Mule Packer Name Role Phone Unavailable Primary Care Provider Unavailabl e Encounter Details Date Type Department Care Team (Late st Contact Info) Description 08/21/2020 Transcribed Document [facility] Family Medicine [address] [place] [address] ProviderMariela MD [address] [place], [place] [id number] Social History Tobacco Use Types Packs/Day Years [...] Conversion Note - Historical ProviderMD - 08/21/2020 5:00 AM CDT Chart Check - Review Order Profile Entered On: 08/21/2020 6:27 EDT Performed On: 08/21/2020 5:00 EDT by Hannah Cardoso, RN Chart Check Powerplans Initiated/Discontinued as Appropriate : Yes All Active Orders Reviewed : Yes Hannah Cardoso, RN - 08/21/2020 6:27 EDT Electronically signed by Maureen Cornejo Conversion International Operations Manager Cerner at 06/16/2022 8:10 PM CDT documented in this encounter Plan of Treatment Not on file documented as of this encounter Visit Diagnoses Not on filedocumented in this encounter
--- OUTSIDE RECORDS SUMMARY | 2024-08-09 13:19 | XMS_ITS | Encounter Summary ---
Author Organization [employer] Address [address] [place] [address] Care Team Providers Care Brine Supervisor Name Role Phone Unavailable Primary Care Provider Unavailabl e Encounter Details Date Type Department Care Team (Late st Contact Info) Description 07/16/2019 Transcribed Document [facility] [place] [facility] [address] ProviderMariela [place] [address] Social History Tobacco Use Types [...] Note - Historical ProviderMD - 07/16/2019 9:00 AM CDT Pain Assessment Entered On: 07/16/2019 14:01 EDT Performed On: 07/16/2019 11:24 EDT by TIM CHOW RN Intervention Information: indomethacin Performed by TIM CHOW RN on 07/16/2019 10:24:00 EDT indomethacin,25mg Oral Pain Assessment Pain Scale Used : 0-10 Scale Onset : Gradual Pain Improved by Intervention : Yes Pain Comment : Resting TIM CHOW RN - 07/16/2019 14:00 EDT Pain Scale Intensity : 1 TIM CHOW RN - 07/16/2019 14:00 EDT Image 4 - Images currently included in the form version of this document have not been included in the text rendition version of the form. documented in this encounter Plan of Treatment Not on file documented as of this encounter Visit Diagnoses Not on filedocumented in this encounter
--- OUTSIDE RECORDS SUMMARY | 2024-08-09 13:19 | XMS_ITS | Encounter Summary ---
Author Organization [employer] Address [address] [place] [address] Care Team Providers Care Nanny Caregiver Name Role Phone Unavailable Primary Care Provider Unavailabl e Encounter Details Date Type Department Care Team (Late st Contact Info) Description 08/21/2020 Transcribed Document [facility] Family Medicine [facility] [place] [address] ProviderMariela MD [address] [place] [address] Social History Tobacco Use Types [...] Conversion Note - Historical ProviderMD - 08/21/2020 10:00 AM CDT Pain Assessment Entered On: 08/21/2020 11:15 EDT Performed On: 08/21/2020 10:11 EDT by Jane Bose RN Intervention Information: traMADol Performed by Jane Bose RN on 08/21/2020 09:11:00 EDT traMADol,50mg Oral Pain Assessment Pain Assessment : Follow-up assessment Pain Scale Goal : 3 Pain Scale Used : 0-10 Scale Opioid Adverse Effects : None Pain Improved by Intervention : Yes Jane Bose RN - 08/21/2020 11:14 EDT Pain Scale Intensity : 0 Jane Bose RN - 08/21/2020 11:14 EDT Image 4 - Images currently included in the form version of this document have not been included in the text rendition version of the form. documented in this encounter Plan of Treatment Not on file documented as of this encounter Visit Diagnoses Not on filedocumented in this encounter
--- OUTSIDE RECORDS SUMMARY | 2024-08-09 13:19 | XMS_ITS | Encounter Summary ---
Author Organization [employer] Address [address] [place] [address] Care Team Providers Care Destination Coordinator Name Role Phone Unavailable Primary Care Provider Unavailabl e Encounter Details Date Type Department Care Team (Late st Contact Info) Description 07/15/2019 Transcribed Document [facility] Family Medicine [address] [place] [address] ProviderMariela MD [address] [place], [place] [id number] Social History Tobacco Use Types Packs/Day Years [...] Conversion Note - Historical ProviderMD - 07/15/2019 5:00 PM CDT Chart Check - Review Order Profile Entered On: 07/15/2019 16:33 EDT Performed On: 07/15/2019 17:00 EDT by Marisela Rangel, RN Chart Check Powerplans Initiated/Discontinued as Appropriate : Yes All Active Orders Reviewed : Yes Marisela Rangel, RN - 07/15/2019 16:33 EDT documented in this encounter Plan of Treatment Not on file documented as of this encounter Visit Diagnoses Not on filedocumented in this encounter
--- OUTSIDE RECORDS SUMMARY | 2024-08-09 13:19 | XMS_ITS | Encounter Summary ---
Author Organization [employer] Address [address] [place] [address] Care Team Providers Care Cloth Dye Range Operator Name Role Phone Unavailable Primary Care Provider Unavailabl e Encounter Details Date Type Department Care Team (Late st Contact Info) Description 08/28/2020 Transcribed Document [facility] [place] [address] [place] [address] ProviderMariela MD [address] [place], [place] [id number] Social History Tobacco Use Types Packs/Day Years Used Date Smoking Tobacco: Never Assessed Comments Unknown Sex and Gender Information Value Date Recorded Sex Assigned at Female 09/02/2021 8:57 PM CDT Legal Sex Female 6:58 PM CDT Gender Identity Female 09/02/2021 8:57 PM CDT Sexual Orientation Not on file documented as of this encounter Miscellaneous Notes * [employer]ner Conversion Note - Historical ProviderMD - 08/28/2020 5:00 AM CDT Chart Check - Review Order Profile Entered On: 08/28/2020 5:07 EDT Performed On: 08/28/2020 5:00 EDT by Jessica Ovalle Lpn Chart Check Powerplans Initiated/Discontinued as Appropriate : Yes All Active Orders Reviewed : Yes Jessica Ovalle Lpn - 08/28/2020 5:07 EDT Electronically signed by Maureen Cornejo Conversion Loss Prevention Detective Cerbryce at 06/16/2022 8:22 PM CDT documented in this encounter Plan of Treatment Not on file documented as of this encounter Visit Diagnoses Not on filedocumented in this encounter
--- OUTSIDE RECORDS SUMMARY | 2024-08-09 13:19 | XMS_ITS | Encounter Summary ---
Author Organization [employer] Address [address] [place] [address] Care Team Providers Care Interlocking Tower Operator Name Role Phone Unavailable Primary Care Provider Unavailabl e Encounter Details Date Type Department Care Team (Late st Contact Info) Description 07/17/2019 Transcribed Document [facility] Family Medicine [facility] [place] [address] ProviderMariela MD [address] [place] [address] Social History Tobacco Use Types [...] Conversion Note - Historical ProviderMD - 07/17/2019 9:01 AM CDT Care Management Assessment/Plan Entered On: 07/17/2019 9:06 EDT Performed On: 07/17/2019 9:01 EDT by СВЕТЛАНА WANG Care Management Note Care Management Note : 07/17/[address] Jaffe's progress note, yahaira may be removed if okay with Dr. Saenz's office. Per our WOCN, Dr. Saenz's office said they need to see her before they make that decision. Appt scheduled for tomorrow, 07/18/2019 @ 1415; [facility] round-trip transport scheduled for 1315 pick-up ([id number]). Spoke with Lexy Valdez, they have not yet began the patient's insurance preauth, they will today, and be ready to admit on Wednesday. Dr. Jaffe notified and in agreement. [facility] rescheduled for discharge 07/19/2019 @ 1400 ([id number]). Care Management Note Report : YOANNA ARAUJO RN - 07/14/19 15:41:31 Yoanna Araujo 07/13/2019 1500 - patient has accepted bed offer at [facility], she will be transported on WednesdayJuly 16 at 2pm by [facility] Confirmation # [id number]. She declined the bed offer at [facility]. Dr. Jaffe notified of discharge plan. YOANNA ARAUJO RN - 07/13/19 14:37:44 Yoanna Araujo 07/13/2019 1400 received call from Ratna with [facility] offering patient a bed, Received call from Isabelle with [facility] she is looking at patient and needed a current height and weight. Still waiting to see if any other bed offers come through. I also sent referral to [facility]. YOANNA ARAUJO RN - 07/13/19 11:04:03 Yoanna Araujo 07/13/2019 1100 faxed out referral for placement for patient to [facility] nursing and rehab, [facility] facilities and [facility] facilities. Awaiting call backs. СВЕТЛАНА WANG - 07/12/19 12:19:17 07/12/2019 Fax received from [facility] with approval for LTAC services with a request for updated discharge plans and clinical info to support needs if not discharged. Auth#[id number]. Clinical review or discharge summary to be faxed by 07/17/2019. YOANNA ARAUJO RN - 07/12/19 08:39:48 Yoanna Araujo 07/12/2019 0830 - faxed clinical review the [facility] at [phone] to request approval for extended ltac services. Auth#[id number], awaiting approval. YOANNA ARAUJO RN - 06/29/19 [...] health and she has been to the [place] [facility] and [facility] in the past. She has the following equipment at home: wheel chair, walker, cane and shower chair. Her discharge plan is to go to rehab prior to returning home. PCP: Flavia MARQUEZ [address] [id number] Director Facilities Maintenance: Dr. Shemar Barger [address] [facility] [address] [facility] [phone] Dr. Clemente Del Rio MD - Rheumatology - [address] [place], [place] [id number] Preferences: Home Health: [facility]: no preferences DME: [facility] - [address], [place] [address] Mcc: [facility] facility: no preferences Will continue to monitor patient for anticipated discharge needs YOANNA ARAUJO RN - 06/29/19 08:30:20 Yoanna Araujo 06/29/2019 0830 received fax from [facility] with approval for extended ltac coverage with next clinical review due on 07/12/2019. Auth#[id number]. Will continue to follow for anticipated discharge needs. YOANNA ARAUJO RN - 06/28/19 08:35:06 Yoanna Araujo 06/28/2019 0830 Faxed clinical review to [facility] at to request approval for extended Ltac services. Auth#[id number]. Pending Approval. Documentation Status Complete : СВЕТЛАНА Dick - 07/17/2019 9:01 EDT documented in this encounter Plan of Treatment Not on file documented as of this encounter Visit Diagnoses Not on filedocumented in this encounter
--- OUTSIDE RECORDS SUMMARY | 2024-08-09 13:19 | XMS_ITS | Encounter Summary ---
Author Organization [employer] Address [address] [place] [address] Care Team Providers Care Winding Inspector And Tester Name Role Phone Unavailable Primary Care Provider Unavailabl e Encounter Details Date Type Department Care Team (Late st Contact Info) Description 07/17/2019 Transcribed Document [facility] [place] [address] [place] [address] ProviderMariela MD [address] [place] [address] Social History Tobacco Use Types [...] Conversion Note - Historical ProviderMD - 07/17/2019 3:00 AM CDT Nutrition Assessment Entered On: 07/17/2019 10:19 EDT Performed On: 07/17/2019 10:19 EDT by Daniella Hunt Dietitian Nutrition Assessment Nutrition Assessment Reason : Follow Up Daniella Hunt Dietitian - 07/17/2019 10:19 EDT Current Nutrition Regimen Comment : 07/16: Moderate f/up. Plan for pt to d/c this week to rehab facility. Pt reports good appetite and eating well. RD took pt lunch order. Still consuming ONS. Gout has resolved and pt not interested in gout diet edu at this time. RD will continue to monitor. 07/09: Moderate f/up. Edema resolving per MD note. Pt working w/ PT. Pt reports poor appetite d/t pain in her foot (intakes remain good). Pt thinks she has gout but is waiting for MD to confirm - RD to provide diet edu prn. Pt reports she is getting tired of ensure - willing to try magic cup BID and ensure in the am (per pt MD wanting ONS TID). Will continue to monitor. Dx: periprosthetic L knee infection (s/p I&D, debridement, washout, and poly-exchange), bacteremia, sepsis, L knee cellulitis, s/p toxic/metabolic encephalopathy, acute blood loss anemia, elyte disturbance, elevated inflammatory markers, osteoarthritis PMH: HTN, hypothyroidism, hypercholesterolemia, cardiac murmur, GERD, hypoalbuminemia, SHERRY, morbid obesity Meds: os zenia 500 D, Vit B12, colace, senna, abx, synthroid, mag ox, MVI, protonix, miralax, statin, florastor, coQ10, warfarin, pain prn, senna prn, NaCl prn Labs: Glu 114, BUN 38, Alb 2.4, ALT 12, PLT 451, PAB 16.5 Skin: slight LE edema; L knee incision (closed) (immobilizer present), MASD gluteal cleft GI: LBM 07/15, +BS Diet: regular + ensure daily + magic cup BID Intakes: 75-100% all meals Ht: 59 Wt: 216# (06/25) Current wt: no new wt (07/02, 07/09, 07/16) SJE Wt hx: 91.8kg/202# (06/18) UBW: 200# per pt BMI: 43.7 IBW/%IBW: 97.5#/207% Daniella Hunt Dietitian - 07/17/2019 15:45 EDT Nutrition Diagnoses Nutrient Intake : Increased nutrient needs Nutrient Intake Related to : skin integrity Nutrient Intake As Evidenced by : documented stg 2 PU coccyx @ SJE not noted by [facility]J WOCN Nutrient Intake Status : Resolved Increased Nutrient Needs Comment : protein Weight : Obese, Class III Weight Related to : lifestyle Weight As Evidenced by : BMI=43.7 Weight Status : Active Daniella Hunt Dietitian - 07/17/2019 15:45 EDT Nutrition Interventions Meals and Snacks : General/Healthful diet Nutrition Supplement Therapy : Commercial beverage, Commercial food Daniella Hunt Dietitian - 07/17/2019 15:45 EDT Monitoring/Evaluation Energy Intake : Total energy intake Protein Intake : Total protein Weight Status : Weight Maintanence Gastrointestinal Function : Bowel Function Daniella Hunt Dietitian - 07/17/2019 15:45 EDT Nutrition Recommendations Dietitian Recommendations : 1. Continue current diet regimen. RD to provide Ensure at breakfast and magic cup at lunch and dinner. Goal: >50% po intake 2. Obtain wt 2x/wk. Goal: no unintended wt changes moderate risk Nutrition Care Level : Moderate Daniella Hunt Dietitian - 07/17/2019 15:45 EDT documented in this encounter Plan of Treatment Not on file documented as of this encounter Visit Diagnoses Not on filedocumented in this encounter
--- OUTSIDE RECORDS SUMMARY | 2024-08-09 13:19 | XMS_ITS | Encounter Summary ---
Author Organization [employer] Address [address] [place] [address] Care Team Providers Care Senior Principal Process Engineer Name Role Phone Unavailable Primary Care Provider Unavailabl e Encounter Details Date Type Department Care Team (Late st Contact Info) Description 08/21/2020 Transcribed Document [facility] Family Medicine [facility] [place] [address] ProviderMariela MD [address] [place] [address] Social History Tobacco Use Types [...] Conversion Note - Historical ProviderMD - 08/21/2020 8:36 AM CDT UM Authorization Entered On: 08/21/2020 8:36 EDT Performed On: 08/21/2020 8:36 EDT by KARAN WATSON RN-Utilization Review Primary Insurance Authorization Authorization and Policy Numbers : Insurance 1 Health Plan: [facility] MEDICARE ADVANTAGE Policy Number: [id number] Authorization Number: [id number] Insurance Primary Name : [employer] MEDICARE ADVANTAGE Policy Number: [id number] Authorization Status-Primary : Admit approved Reference Number-Primary : [id number] Authorization Number-Primary : [id number] Number of Days Authorized-Primary : 0 Day(s) Authorized Service Begin Date-Primary : 08/20/2020 EDT Authorized Service End Date-Primary : 08/20/2020 EDT Authorization Comments-Primary : Uploaded cont stay clinicals (08/21/20) to [employer] via [employer]. Historical Authorization Comments-Primary : Comment 1: Note on [facility] website:Patient was initially scheduled for Right Patellar [...] due to the need for surgery. (TIESHA AQUINO, RN-Utilization Review 08/19/2020 15:20) Comment 2: [facility] Medicare approved per website for 1 day (TIESHA AQUINO, RN-Utilization Review 08/19/2020 15:14) KARAN WATSON RN-Utilization Review - 08/21/2020 8:36 EDT documented in this encounter Plan of Treatment Not on file documented as of this encounter Visit Diagnoses Not on filedocumented in this encounter
--- OUTSIDE RECORDS SUMMARY | 2024-08-09 13:19 | XMS_ITS | Encounter Summary ---
Author Organization [employer] Address [address] [place] [address] Care Team Providers Care Hat Mender Name Role Phone Unavailable Primary Care Provider Unavailabl e Encounter Details Date Type Department Care Team (Late st Contact Info) Description 08/27/2020 Transcribed Document [facility] [address] [place] [address] ProviderMariela MD [address] [place], [place] [address] Social History Tobacco Use Types Packs/Day Years [...] Conversion Note - Historical ProviderMD - 08/27/2020 2:00 AM CDT Auto Radiator Specialist Details Entered On: 08/27/2020 6:49 EDT Performed On: 08/27/2020 2:00 EDT by Jessica Ovalle Lpn Order Details Transport Mode Order Detail : Wheelchair Isolation Precautions Order Detail : Standard Precautions Order Detail : N/A IV Order Detail : 1 Oxygen Order Detail : 0 Nurse Collect Order Detail : 0 Lift/Transfer : Maximal assist Central Line Order Detail : Yes Room Service : Not Appropriate Arterial Line : No Patient Needs Meds Crushed/Liquid : No Jessica Ovalle Lpn - 08/27/2020 6:49 EDT documented in this encounter Plan of Treatment Not on file documented as of this encounter Visit Diagnoses Not on filedocumented in this encounter
--- OUTSIDE RECORDS SUMMARY | 2024-08-09 13:19 | XMS_ITS | Encounter Summary ---
Author Organization [employer] Address [address] [place] [address] Care Team Providers Care Special Forces Weapons Sergeant Name Role Phone Unavailable Primary Care Provider Unavailabl e Encounter Details Date Type Department Care Team (Late st Contact Info) Description 08/21/2020 Transcribed Document [facility] [place] [facility] [place] [address] ProviderMariela MD [facility] [place] [address] Social History Tobacco Use Types [...] Conversion Note - Historical ProviderMD - 08/21/2020 12:55 PM CDT Patient: SY BARLOW Age: 80 Years Sex: Female : 1940 Discharge Disposition Ortho Discharge Summary Addendum Discharge: Facility Procedure: [facility] TKA REV w extensor tendon repair Complications: None DVT Prophylaxis: Aspirin 81 mg tabs, 1 BID for 45 days. Script written, on chart WB Status: NWB Therapy goals: keep cast c/d/i, NWB, USE LEG PATENT COUNSEL F/U in clinic 2-3 weeks Discharge Instructions: 1)Elevate the knee and the entire lower extremity for as much as possible for 6 weeks. 2)Patient may sponge bathe, keep cast c/d/i 3) Patient will be on blood thinner 6 weeks after surgery. Blood thinner is ECASA 81mg tabs po BID x 45 days. 10) Gabapentin 300 mg tabs, Oxycodone 10mg tabs, Tramadol 50mg q6h and Tylenol 1000mg TID will be used for postoperative pain control and should be weaned as the patient can tolerate. Discharge Medications calcium carbonate vitamin D3 cetirizine 10 mg oral tablet 10 mg = 1 Tab, Oral, Daily Crestor 10 mg oral tablet 10 mg = 1 Tab, Oral, At Bedtime cyanocobalamin 5000 mcg oral tablet, extended release 5,000 mcg = 1 Tab, Oral, Daily Cymbalta 60 mg oral delayed release capsule 60 mg = 1 Cap, Oral, Daily doxycycline monohydrate 50 mg oral capsule 100 mg = 2 Cap, Oral, Q12H ferrous sulfate 325 mg (65 mg elemental iron) oral delayed release tablet 325 mg = 1 Tab, Oral, Daily fluticasone 50 mcg/inh nasal spray 2 Mercer, PRN, Nostrils Both, BID furosemide 40 mg oral tablet 40 mg = 1 Tab, Oral, Daily lisinopril 5 mg, Oral, Daily MiraLax oral powder for reconstitution 17 Gram, Oral, Daily Multiple Vitamins oral tablet 1 Tab, Oral, Daily potassium chloride 20 mEq oral tablet, extended release 20 mEq = 1 Tab, Oral, BID Sports Pain Relief Rub 10% topical cream Synthroid 100 mcg (0.1 mg) oral tablet 100 mcg = 1 Tab, Oral, Daily ASA 81 mg Tabs, 1 PO BID Neurontin 300 mg Tabs, 1qhs Mobic 15mg, 1 qday for 4 weeks Tramadol 50mg tabs, 1-2mg PO q6h PRN Oxycodone 10 mg tabs, 1-2 q4-6h PRN Tylenol 1000mg TID Cefadroxil 500mg, 1 PO BID 2 weeks documented in this encounter Plan of Treatment Not on file documented as of this encounter Visit Diagnoses Not on filedocumented in this encounter
--- OUTSIDE RECORDS SUMMARY | 2024-08-09 13:19 | XMS_ITS | Encounter Summary ---
Author Organization [employer] Address [address] [place] [address] Care Team Providers Care Display Fabrication Supervisor Name Role Phone Unavailable Primary Care Provider Unavailabl e Encounter Details Date Type Department Care Team (Late st Contact Info) Description 08/21/2020 Transcribed Document [facility] [place] [facility] [place] [address] ProviderMariela MD [facility] [place] [address] Social History Tobacco Use Types [...] Conversion Note - Historical ProviderMD - 08/21/2020 9:00 PM CDT Pain Assessment Entered On: 08/21/2020 22:38 EDT Performed On: 08/21/2020 22:21 EDT by Caitlyn Fallon Rn Intervention Information: acetaminophen Performed by Caitlyn Fallon Rn on 08/21/2020 21:21:00 EDT acetaminophen,1000mg Oral Pain Assessment Pain Assessment : Follow-up assessment Pain Scale Goal : 3 Pain Scale Used : 0-10 Scale Caitlyn Fallon Rn - 08/21/2020 22:38 EDT Pain Scale Intensity : 0 Caitlyn Fallon Rn - 08/21/2020 22:38 EDT Image 4 - Images currently included in the form version of this document have not been included in the text rendition version of the form. documented in this encounter Plan of Treatment Not on file documented as of this encounter Visit Diagnoses Not on filedocumented in this encounter
--- OUTSIDE RECORDS SUMMARY | 2024-08-09 13:19 | XMS_ITS | Encounter Summary ---
Author Organization [employer] Address [address] [place] [address] Care Team Providers Care Craniologist Name Role Phone Unavailable Primary Care Provider Unavailabl e Encounter Details Date Type Department Care Team (Late st Contact Info) Description 08/21/2020 Transcribed Document [facility] [place] Family Medicine [facility] [place] [address] ProviderMariela MD [address] [place] [id number] Social History Tobacco Use Types Packs/Day Years [...] Conversion Note - Historical ProviderMD - 08/21/2020 1:57 PM CDT Initial Discharge Planning Entered On: 08/21/2020 14:03 EDT Performed On: 08/21/2020 13:57 EDT by ADALBERTO BEE RN Initial Assessment I Previously Documented Living Environment : No qualifying data available. Living Situation : Home Patient Lives With : Alone Is the Patient a Caregiver at Home? : No Emergency Contact #1 : Sam oLwe Emergency Contact #1 Emergency Contact #1 Relationship : son Emergency Contact #2 : enrique lowe Emergency Contact #2 Phone Number : [phone] Emergency Contact #2 Relationship : son Enter Doctors Name : Bianka Gomez Does Patient have PCP Listed? : Yes Legal Guardian : No ADALBERTO BEE RN - 08/21/2020 13:57 EDT Initial Assessment II Sensory and Motor Deficits : Weakness Current Home Treatments and Equipment : Cane, Walker, Wheelchair Services and Community Resources : Other: na Does the Patient have a Floor to SNF Benefit? : No ADALBERTO BEE RN - 08/21/2020 13:57 EDT Discharge Needs I Anticipated Discharge Date : 08/22/2020 EDT Anticipated Discharge To, CM : [facility] facility Current Home Treatment/Equipment : Current Home Treatment/Equipment No qualifying data available. Post Acute/Home Treatments : Walker, Wheelchair Documentation Status Complete : Yes ADALBERTO BEE RN - 08/21/2020 13:57 EDT Discharge Needs II Professional Skilled Services : Professional Skilled Services No qualifying data available. Services and Community Resources : Other: na Needs Assistance with Transportation : Yes Discharge Options Discussed with Patient : Discharge transportation, DME, superintendent marine oil terminal rehabilitation ADALBERTO BEE RN - 08/21/2020 13:57 EDT Narrative Note Narrative Note : 80 y/o female s/p RIGHT patello tendon repair. ORIf per Dr. Saenz. met with patient at bedside to discuss discharge needs and verify demographics. RRS:Low 26 boost:4 STATUS: patient lives alone. Her family helps them when they can. she needs assistance for adls. PLAN: patient wants to go to Rehab and choose [place] [facility] or [place]. Referral faxed via Mike and brooke notified. 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 DME: patient has a wc, showerchair and a walker at home. CM: jevon jon will continue to follow patient TRANS: will need an [facility] to transport patient there. ADALBERTO BEE RN - 08/21/2020 14:03 EDT documented in this encounter Plan of Treatment Not on file documented as of this encounter Visit Diagnoses Not on filedocumented in this encounter
--- OUTSIDE RECORDS SUMMARY | 2024-08-09 13:19 | XMS_ITS | Encounter Summary ---
Author Organization [employer] Address [address] [place] [address] Care Team Providers Care Ship Engines Operating Engineer Name Role Phone Unavailable Primary Care Provider Unavailabl e Encounter Details Date Type Department Care Team (Late st Contact Info) Description 08/21/2020 Transcribed Document [facility] [place] [facility] [place] [address] ProviderMariela MD [place] [address] Social History Tobacco Use Types [...] Conversion Note - Historical Provider, - 08/21/2020 7:24 AM CDT Evaluation, Physical Therapy Entered On: 08/21/2020 11:05 EDT Performed On: 08/21/2020 9:33 EDT by CHAITANYA SIMON PT General Information, PT Visit Type, PT : Initial evaluation Patient Orders : Order Date Order Ordering [...] and Treatment Ordered By: SOLOMON MCCRACKEN PA-C Active Diagnoses : Presence of right artificial [...] Devices : Assistive Devices No Devices Recorded CHAITANYA SIMON PT - 08/21/2020 10:48 EDT General Status Patient Received Status : Supine in bed, Bed alarm activated Treatment Start Time : 08/21/2020 9:33 EDT Patient Left Status : Supine in bed, Bed alarm activated, RN/PCT informed, Communication board completed, All needs met and within reach RN/PCT Informed Comment : Yes, RN approved pt for PT eval and pt agreeable Treatment End Time : 08/21/2020 10:06 EDT Treatment Time : 33 Minute(s) CHAITANYA SIMON PT - 08/21/2020 10:48 EDT History and Environment Living Situation, Therapy : Home Patient Lives With : Alone Persons Assisting Patient at Home : Child/Children Professional Skilled Services : None Persons Providing Information : Patient Home Equipment Therapy, PT : Shower Equipment, Walker, Wheelchair Walker : Walker, four wheel, Walker, front wheel Wheelchair : Wheelchair, standard Home Setup : One story Stairs : No Ramp : Yes CHAITANYA SIMON, PT - 08/21/2020 10:48 EDT Prior Level of Function PT GRID Prior LOF Ambulation, Household : Independent Prior LOF Ambulation, Community : Independent Prior LOF Bed Mobility : Independent Prior LOF Toileting : Independent Prior LOF Transfer : Independent CHAITANYA SIMON, PT - 08/21/2020 10:48 EDT Prior LOF Assist with ADL Comment : Pt reports that she was independent with all mobility after she recovered from her last knee surgery CHAITANYA SIMON, PT - 08/21/2020 10:48 EDT Upper Extremity Upper Extremity Dominance : Right Right UE Active ROM : Impaired Right UE Strength : Impaired Left UE Active ROM : Impaired Left UE Strength : Impaired Upper Extremity Comment : see OT notes CHAITANYA SIMON, PT - 08/21/2020 10:48 EDT Lower Extremity RLE Active ROM : Impaired Right LE Active Assist ROM : Impaired RLE Passive ROM : Impaired Right LE Strength : Impaired LLE Active ROM : WFL Left LE Strength : Impaired Lower Extremity Comment : RLE is held in cast from hip to toes. Pt is not permitted right quad activity and uses leg tank assembler to assist with movement of RLE in cast CHAITANYA SIMON, PT - 08/21/2020 10:48 EDT Functional Mobility Mobility Grid Bed Scooting : Rehab Total assistance (Comment: x2 [CHAITANYA SIMON, PT - 08/21/2020 10:48 EDT] ) Supine to Sit : Rehab Total assistance (Comment: x2 [CHAITANYA SIMON, PT - 08/21/2020 10:48 EDT] ) Sit to Supine : Rehab Total assistance (Comment: x2 [CHAITANYA SIMON, PT - 08/21/2020 10:48 EDT] ) CHAITANYA SIMON, PT - 08/21/2020 10:48 EDT Gait Training/Assessment, PT Weight Bearing Status Comment : NWB RLE Walking Distance : Pt cannot ambulate at this time. Pt is NWB and is not able to maintain due to poor arm strength CHAITANYA SIMON, PT - 08/21/2020 10:48 EDT Neuromuscular Reeducation, PT Balance Comment : fair sitting could not assess standing CHAITANYA SMION, PT - 08/21/2020 10:48 EDT Neurological/Sensory Overall Sensory Response : Intact Response to Pain : Intact CHAITANYA SIMON, PT - 08/21/2020 10:48 EDT Activity Tolerance, PT Activity Comment : poor CHAITANYA SIMON, PT - 08/21/2020 10:48 EDT Cognition Assessment, PT Orientation : Oriented x 4 Attention Assessment : Present CHAITANYA SIMON, PT - 08/21/2020 10:48 EDT Edu Topics Physical Therapy Education Grid Bed Mobility Training : Needs further teaching, Verbalizes understanding Precaution/Contraindication : Needs further teaching Transfer Training : Verbalizes understanding, Needs further teaching CHAITANYA SIMON, PT - 08/21/2020 10:48 EDT Indication Assesessment, PT Physical Therapy Indicated : Yes Interdisciplinary Consultation(s) Needed : Yes Interdisciplinary Consult : Occupational Therapy PT Problem List : Impaired, bed mobility, Impaired, endurance tolerance, Impaired, gait, Impaired, sitting balance, Impaired, transfers Potential Barriers To Therapy : Acuity of Illness, Other: general debility Rehabilitation Potential : Other: to be determined CHAITANYA SIMON, PT - 08/21/2020 10:48 EDT Plan of Care, PT PT Tx Plan/Goals Established w Patient : Yes PT Frequency Rehab : Daily Other PT Treatment Provided This Date : ther act PT Duration Rehab : Fourteen days PT Treatments Planned : Bed mobility training, Gait training, Safety education, Therapeutic exercises, Transfer training Plan of Care Comment, PT : see above CHAITANYA SIMON, PT - 08/21/2020 10:48 EDT Alf Goals Other PT LTG Grid Goal #1 [...] 08/28/2020 EDT Goal Status : Initial goal Initial goal CHAITANYA SIMON, PT - 08/21/2020 10:48 EDT CHAITANYA SIMON, PT - 08/21/2020 10:48 EDT CHAITANYA SIMON, PT - 08/21/2020 10:48 EDT Treatment Note Subjective Comment : agreeable Patient's Response to Treatment : poor Additional Objective Information : see eval Pt sat EOB x 4 mins with mod assist x2 and PT supporting RLE in cast. Pt became fatigued and requested to return to supine. Pt dependent in bed mobility and supine to sit transfer. No ability to transfer out of bed to chair at this time as ceiling lift is not charged Assessment : Pt would benefit from continued skilled PT services in the acute care setting to improve her level of mobility and assist her to return to her PLOF Pt will need SNF placement as she is not able to be mobile enough to care for themselves Plan for Treatment : continue per eval POC CHAITANYA SIMON, PT - 08/21/2020 10:48 EDT Pain Assessment Pain Scaled Used : 0-10 Pain scale Pain Score Pre-Intervention : 5 Pain Score Post-Intervention. : 5 Pain Comment : RN aware CHAITANYA SIMON, PT - 08/21/2020 10:48 EDT Image 1 - Images currently included in the form version of this document have not been included in the text rendition version of the form. Anticipated Discharge Needs, OT/PT Anticipated Discharge to : Unit, care home CHAITANYA SIMON, PT - 08/21/2020 10:48 EDT [place] PT Charges PT Ther Activities Ea 15 Min : 2 PT Eval Moderate Complexity : 1 CHAITANYA SIMON, PT - 08/21/2020 10:48 EDT Electronically signed by [facility] Conversion Manager Enterprise Content Management Cerner at 06/16/2022 8:05 PM CDT documented in this encounter Plan of Treatment Not on file documented as of this encounter Visit Diagnoses Not on filedocumented in this encounter
--- OUTSIDE RECORDS SUMMARY | 2024-08-09 13:19 | XMS_ITS | Encounter Summary ---
Author Organization [employer] Address [address] [place] [address] Care Team Providers Care Bell Ringer Name Role Phone Unavailable Primary Care Provider Unavailabl e Encounter Details Date Type Department Care Team (Late st Contact Info) Description 08/21/2020 Transcribed Document [facility] [place] [facility] [place] [address] ProviderMariela MD [address] [place] [address] Social History Tobacco Use Types [...] Historical ProviderMD - 08/21/2020 5:00 AM CDT Pain Assessment Entered On: 08/21/2020 8:05 EDT Performed On: 08/21/2020 6:38 EDT by Jane Bose RN Intervention Information: acetaminophen Performed by Hannah Cardoso RN on 08/21/2020 05:38:00 EDT acetaminophen,1000mg Oral Pain Assessment Pain Assessment : Follow-up assessment Pain Scale Goal : 3 Pain Scale Used : 0-10 Scale Opioid Adverse Effects : None Pain Improved by Intervention : Yes Jane Bose RN - 08/21/2020 8:05 EDT Pain Scale Intensity : 0 Jane Bose RN - 08/21/2020 8:05 EDT Image 4 - Images currently included in the form version of this document have not been included in the text rendition version of the form. documented in this encounter Plan of Treatment Not on file documented as of this encounter Visit Diagnoses Not on filedocumented in this encounter
--- OUTSIDE RECORDS SUMMARY | 2024-08-09 13:19 | XMS_ITS | Encounter Summary ---
Author Organization [employer] Address [address] [place] [address] Care Team Providers Care Incising Machine Operator Name Role Phone Unavailable Primary Care Provider Unavailabl e Encounter Details Date Type Department Care Team (Late st Contact Info) Description 10/26/2020 Transcribed Document [facility] [place] [address] ProviderMariela MD [address] [place] [address] Social History Tobacco Use Types Packs/Day [...] Conversion Note - Historical ProviderMD - 10/26/2020 1:54 [place] [address] SOFIA BARLOW :1940 Visit Time:10/26/2020 Your Visit [...] follow up appointment Follow-up as instructed Where: [address] [place] [phone]- Business (1) Follow Up with Follow up with primary care provider When Within 2 to 3 days Comments Call for follow up appointment. Please follow-up with your primary care provider in 2 to 3 days. Return to ED if you experience new or worsening symptoms. If you do not have a primary care provider the patient resource material scheduler can assist you with establishing care and scheduling follow-up. The Patient Resource Automatic Mounter can be contacted at . Allergies Mobic [...] range between ( 1.0 and 7.0 ) Sioux #: 1.11 K/uL -- Normal range between ( 0.24 and 0.82 ) Eos #: 1.06 K/uL -- Normal range between ( 0.04 and 0.54 ) Sioux %: 8.8 % -- Normal range between [...] provider. Document Revised: 02/24/2017 Document Reviewed: 02/01/2017 [employer] Patient Education ?? 2020 [place]. Emergency Awareness and Preventative Care STROKE is [...] Assistance with quitting is available by contacting 6-739-ZSLZ-NOW. This is a free resource providing counseling, [...] was given the opportunity to ask questions. Patient/Dry Can Tender Name: Patient/Dry Can Tender Signature: Relationship to Patient: Clinician/Hospital Dry Can Tender Signature: Please Provide a Telephone Number Where You Can Be Reached: Is it Permissible To Leave a Message? Date: documented in this encounter Plan of Treatment Not on file documented as of this encounter Visit Diagnoses Not on filedocumented in this encounter
--- OUTSIDE RECORDS SUMMARY | 2024-08-09 13:19 | XMS_ITS | Encounter Summary ---
Author Organization [employer] Address [address] [place] [address] Care Team Providers Care Floor Mechanic Name Role Phone Unavailable Primary Care Provider Unavailabl e Encounter Details Date Type Department Care Team (Late st Contact Info) Description 08/21/2020 Transcribed Document [facility] [place] [address] [place] [address] ProviderMariela MD [address] [place], [place] [id number] Social History Tobacco Use Types Packs/Day Years [...] Note - Historical ProviderMD - 08/21/2020 5:00 PM CDT Chart Check - Review Order Profile Entered On: 08/21/2020 15:53 EDT Performed On: 08/21/2020 17:00 EDT by Jane Bose RN Chart Check Powerplans Initiated/Discontinued as Appropriate : Yes All Active Orders Reviewed : Yes Jane Bose RN - 08/21/2020 15:52 EDT documented in this encounter Plan of Treatment Not on file documented as of this encounter Visit Diagnoses Not on filedocumented in this encounter
--- OUTSIDE RECORDS SUMMARY | 2024-08-09 13:19 | XMS_ITS | Encounter Summary ---
Author Organization [employer] Address [address] [place] [address] Care Team Providers Care Welder Machine Operator Name Role Phone Unavailable Primary Care Provider Unavailabl e Encounter Details Date Type Department Care Team (Late st Contact Info) Description 08/27/2020 Transcribed Document [facility] [place] [facility] [place] [address] ProviderMariela MD [facility] [place] [address] Social History Tobacco Use Types [...] Conversion Note - Historical ProviderMD - 08/27/2020 9:00 PM CDT Pain Assessment Entered On: 08/27/2020 23:36 EDT Performed On: 08/27/2020 22:36 EDT by Jessica Ovlale Lpn Intervention Information: acetaminophen Performed by Jessica Ovalle Lpn on 08/27/2020 21:36:00 EDT acetaminophen,1000mg Oral Pain Assessment Pain Assessment : Follow-up assessment Pain Scale Goal : 3 Pain Scale Used : 0-10 Scale Jessica Ovalle Lpn - 08/27/2020 23:36 EDT Pain Scale Intensity : 0 Jessica Ovalle Lpn - 08/27/2020 23:36 EDT Image 4 - Images currently included in the form version of this document have not been included in the text rendition version of the form. documented in this encounter Plan of Treatment Not on file documented as of this encounter Visit Diagnoses Not on filedocumented in this encounter
--- OUTSIDE RECORDS SUMMARY | 2024-08-09 13:19 | XMS_ITS | Encounter Summary ---
Author Organization [employer] Address [address] [place] [address] Care Team Providers Care Bingo Worker Name Role Phone Unavailable Primary Care Provider Unavailabl e Encounter Details Date Type Department Care Team (Late st Contact Info) Description 08/28/2020 Transcribed Document [facility] [place] Family Medicine [facility] [place] [address] ProviderMariela MD [address] [place], [place] [address] Social History Tobacco Use Types Packs/Day Years [...] Conversion Note - Historical ProviderMD - 08/28/2020 10:18 AM CDT Nursing Discharge Summary Entered On: 08/28/2020 10:19 EDT Performed On: 08/28/2020 10:18 EDT by Kim Carpenter RN Discharge Documentation Discharge Date/Time : 08/28/2020 10:12 EDT Patient Disposition, General : Discharge Discharge To : Rehabilitation unit/facility Mode Of Departure, General Discharge : Stretcher IV Discontinued : Yes Personal Belongings With Patient : Yes Prescriptions Given to Patient : Electronically sent Kim Carpenter RN - 08/28/2020 10:18 EDT documented in this encounter Plan of Treatment Not on file documented as of this encounter Visit Diagnoses Not on filedocumented in this encounter
--- OUTSIDE RECORDS SUMMARY | 2024-08-09 13:19 | XMS_ITS | Encounter Summary ---
Author Organization [employer] Address [address] [place] [address] Care Team Providers Care Back Tender Pulp Drier Name Role Phone Unavailable Primary Care Provider Unavailabl e Encounter Details Date Type Department Care Team (Late st Contact Info) Description 08/21/2020 Transcribed Document [facility] [place] Family Medicine [facility] [place] [address] ProviderMariela MD [facility] [place] [address] Social History Tobacco Use Types [...] Conversion Note - Historical ProviderMD - 08/21/2020 4:00 PM CDT Pain Assessment Entered On: 08/21/2020 18:06 EDT Performed On: 08/21/2020 17:37 EDT by Jane Bose RN Intervention Information: traMADol Performed by Jane Bose RN on 08/21/2020 16:37:00 EDT traMADol,50mg Oral Pain Assessment Pain Assessment : Follow-up assessment Pain Scale Goal : 3 Pain Scale Used : 0-10 Scale Opioid Adverse Effects : None Pain Improved by Intervention : Yes Jane Bose RN - 08/21/2020 18:06 EDT Pain Scale Intensity : 0 Jane Bose RN - 08/21/2020 18:06 EDT Image 4 - Images currently included in the form version of this document have not been included in the text rendition version of the form. documented in this encounter Plan of Treatment Not on file documented as of this encounter Visit Diagnoses Not on filedocumented in this encounter
--- OUTSIDE RECORDS SUMMARY | 2024-08-09 13:19 | XMS_ITS | Encounter Summary ---
Author Organization [employer] Address [address] [place] [address] Care Team Providers Care Brownfield Redevelopment Specialist Name Role Phone Unavailable Primary Care Provider Unavailabl e Encounter Details Date Type Department Care Team (Late st Contact Info) Description 07/15/2019 Transcribed Document [facility] [place] [address] [place] [address] ProviderMariela MD [address] [place], [place] [id number] Social History Tobacco Use Types Packs/Day Years [...] Note - Historical ProviderMD - 07/15/2019 5:00 AM CDT Chart Check - Review Order Profile Entered On: 07/15/2019 5:23 EDT Performed On: 07/15/2019 5:00 EDT by Georgina Olivo RN Chart Check Powerplans Initiated/Discontinued as Appropriate : Yes All Active Orders Reviewed : Yes Georgina Olivo RN - 07/15/2019 5:23 EDT documented in this encounter Plan of Treatment Not on file documented as of this encounter Visit Diagnoses Not on filedocumented in this encounter
--- OUTSIDE RECORDS SUMMARY | 2024-08-09 13:19 | XMS_ITS | Encounter Summary ---
Author Organization [employer] Address [address] [place] [address] Care Team Providers Care Business Management Manager Name Role Phone Unavailable Primary Care Provider Unavailabl e Encounter Details Date Type Department Care Team (Late st Contact Info) Description 07/15/2019 Transcribed Document [facility] [place] Medicine [address] [place] [address] ProviderMariela MD [address] [place] [address] Social History Tobacco Use Types Packs/Day Years [...] Note - Historical ProviderMD - 07/15/2019 9:00 PM CDT Pain Assessment Entered On: 07/16/2019 3:29 EDT Performed On: 07/15/2019 21:03 EDT by OSMAR AREVALO RN Intervention Information: indomethacin Performed by OSMAR AREVALO RN on 07/15/2019 20:03:00 EDT indomethacin,25mg Oral Pain Assessment Pain Assessment : Follow-up assessment Pain Improved by : Medication Pain Improved by Intervention : Yes OSMAR AREVALO RN - 07/16/2019 3:28 EDT Electronically signed by Maureen Cornejo Conversion Structural Steel Worker Helper Cerner at 06/16/2022 8:06 PM CDT documented in this encounter Plan of Treatment Not on file documented as of this encounter Visit Diagnoses Not on filedocumented in this encounter
--- OUTSIDE RECORDS SUMMARY | 2024-08-09 13:19 | XMS_ITS | Encounter Summary ---
Author Organization [employer] Address [address] [place] [address] Care Team Providers Care Bezel Cutter Name Role Phone Unavailable Primary Care Provider Unavailabl e Encounter Details Date Type Department Care Team (Late st Contact Info) Description 07/16/2019 Transcribed Document [facility] [place] [facility] [place] [address] ProviderMariela MD [facility] [place] [address] Social History Tobacco Use Types [...] Cerner Conversion Note - Mariela ProviderMD - 07/16/2019 7:01 PM CDT Patient: SOFIA BARLOW Age: 79 [...] 0.9% 100 mL 2 Gram, IV Piggyback, [id number] cyanocobalamin 1,000 mcg tab 5,000 mcg 5 [...] Oral, Q4H fluticasone 0.05% nasal spray 2 [place], Nostrils Both, BID magnesium hydroxide 8% liq [...] Sleep apnea Physical Examination VS/Measurements Vital Measurements 07/16/2019 15:00 EDT Systolic Blood Pressure 120 mmHg Diastolic Blood Pressure 50 mmHg LOW Temperature Source Oral Temperature Mode Fahrenheit Temperature, Fahrenheit 98.2 Deg F Clinical Temperature, C 36.8 Deg C Heart Rate Monitored 87 bpm Respiratory Rate 16 Breaths/Min Oxygen Saturation 98 % General: Alert and oriented, No acute [...] Appropriate mood & affect. Review / Management Condition: Stable. Impression and Plan Diagnosis Chronic [...] renal function, blood glucose, and urine output. continue on antibiotics as recommended by infectious disease. Wound care. Shannon removal if okay with .to assisted facility in a.m. if stable. Orders Order Profile (Selected) Inpatient Orders Ordered (Scheduled) CBC w/ Auto Diff: Specimen Type: Blood, AM Draw collect, 07/17/19 4:00:00 EDT, 1-Time, Stop: 07/17/19 4:00:00 EDT, Nurse Collect CMP Comprehensive Metabolic Panel: Specimen Type: Blood, AM Draw collect, 07/17/19 4:00:00 EDT, 1-Time, Stop: 07/17/19 4:00:00 EDT, Nurse Collect Prealbumin: Specimen Type: Blood, AM Draw collect, 07/17/19 4:00:00 EDT, 1-Time, Stop: 07/17/19 4:00:00 EDT, Nurse Collect. documented in this encounter Plan of Treatment Not on file documented as of this encounter Visit Diagnoses Not on filedocumented in this encounter
--- OUTSIDE RECORDS SUMMARY | 2024-08-09 13:19 | XMS_ITS | Encounter Summary ---
Author Organization [employer] Address [address] [place] [address] Care Team Providers Care Showroom Consultant Name Role Phone Unavailable Primary Care Provider Unavailabl e Encounter Details Date Type Department Care Team (Late st Contact Info) Description 07/17/2019 Transcribed Document [facility] [place] [address] [place] [address] ProviderMariela MD [address], [place] [phone] Social History Tobacco Use Types Packs/Day Years [...] Note - Historical ProviderMD - 07/17/2019 9:00 PM CDT Pain Assessment Entered On: 07/18/2019 2:49 EDT Performed On: 07/17/2019 21:58 EDT by Kena Ling RN Intervention Information: indomethacin Performed by Kena Ling, RN on 07/17/2019 20:58:00 EDT indomethacin,25mg Oral Pain Assessment Pain Assessment : Follow-up assessment Kena Ling, EDDIE - 07/18/2019 2:49 EDT documented in this encounter Plan of Treatment Not on file documented as of this encounter Visit Diagnoses Not on filedocumented in this encounter
--- OUTSIDE RECORDS SUMMARY | 2024-08-09 13:19 | XMS_ITS | Encounter Summary ---
Author Organization [employer] Address [address] [place] [address] Care Team Providers Care Nurse Case Manager Name Role Phone Unavailable Primary Care Provider Unavailabl e Encounter Details Date Type Department Care Team (Late st Contact Info) Description 07/17/2019 Transcribed Document [facility] [place] Medicine [facility] [place] [address] ProviderMariela MD [facility] [place] [address] Social History Tobacco Use Types [...] Cerner Conversion Note - Mariela ProviderMD - 07/17/2019 10:28 PM CDT Patient: SOFIA BARLOW Age: 79 [...] 0.9% 100 mL 2 Gram, IV Piggyback, [id number] cyanocobalamin 1,000 mcg tab 5,000 mcg 5 [...] Oral, Q4H fluticasone 0.05% nasal spray 2 [place], Nostrils Both, BID magnesium hydroxide 8% liq [...] Sleep apnea Physical Examination VS/Measurements Vital Measurements 07/17/2019 19:00 EDT Systolic Blood Pressure 121 mmHg Diastolic Blood Pressure 52 mmHg LOW Temperature Source Oral Temperature Mode Fahrenheit Temperature, Fahrenheit 98.6 Deg F Clinical Temperature, C 37 Deg C Heart Rate Monitored 89 bpm Respiratory Rate 16 Breaths/Min Oxygen Saturation 97 % General: Alert and oriented, No acute [...] Review / Management Results review: All Results 07/17/2019 5:01 EDT Sodium Level 139 mmol/L Potassium Level 4.4 mmol/L Chloride Level 103 mmol/L Carbon Dioxide Level 30 mmol/L Anion Gap 10 Glucose Level 114 mg/dL HI Blood Urea Nitrogen 38 mg/dL HI Creatinine Level 0.80 mg/dL eGFR >60 mL/min/1.73m2 eGFR NonAfrican >60 mL/min/1.73m2 Bun/Creatinine 47.5 HI Calcium Level 8.7 mg/dL Protein Total 7.3 Gram/dL Albumin Level 2.4 Gram/dL LOW Globulin 4.9 Gram/dL HI A/G Ratio 0.5 LOW Bilirubin Total 0.2 mg/dL Alk Phos 57 Units/Liter AST 14 Units/Liter ALT 12 Units/Liter LOW WBC 8.2 K/uL RBC 2.63 Million/uL LOW Hgb 8.0 g/dL LOW Hct 25.5 % LOW MCV 97.0 fL HI MCH 30.4 pg MCHC 31.4 Gram/dL LOW Platelet Count 451 K/uL HI MPV 8.6 fL LOW RDW 13.0 % Neut % 61.9 % Neut # 5.06 K/uL Lymph % 21.2 % Lymph # 1.73 x10(3)/uL [place] % 9.7 % HI [place] # 0.79 K/uL Eos % 5.8 % Eos # 0.47 x10(3)/uL Baso % 0.4 % Baso # 0.03 x10(3)/uL Slide Review No IG# 0.08 x10(3)/uL HI IG% 1.00 % HI Prealbumin 16.5 mg/dL LOW . Condition: Stable. Impression and Plan Diagnosis [...] renal function, blood glucose, and urine output. cont on IV antibiotics as per ID recommendations .Fall risk precautions .stress ulcer prophylaxis .For office visit in AM. documented in this encounter Plan of Treatment Not on file documented as of this encounter Visit Diagnoses Not on filedocumented in this encounter
--- OUTSIDE RECORDS SUMMARY | 2024-08-09 13:20 | XMS_ITS | Encounter Summary ---
Author Organization [employer] Address [address] [place] [address] Care Team Providers Care Egg Sorter Name Role Phone Unavailable Primary Care Provider Unavailabl e Encounter Details Date Type Department Care Team (Late st Contact Info) Description 08/28/2020 Transcribed Document [facility] [place] [facility] [place] [address] ProviderMariela MD [address] [place] [address] Social History Tobacco Use Types [...] Conversion Note - Historical ProviderMD - 08/28/2020 1:26 PM CDT Final Discharge Planning Entered On: 08/28/2020 13:27 EDT Performed On: 08/28/2020 13:26 EDT by Moni Xavier Rn Final Discharge Planning Discharge Arrangements : Patient Post-Acute Information Patient Name: SOFIA BARLOW Gender: Female : 44 Age: 80 Years [place] Referral(s): Service: Organization: Business Address: Phone 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 : No Patient/Family Notified of Plan : Yes Is Patient Ready for Discharge? : Yes Physician Notified Patient is Ready for Discharge? : Yes Discharge To Care Management : SNF with Medicare Certification-03 Moni Xavier Rn - 08/28/2020 13:26 EDT Final Narrative Note Final Narrative Note : PER ORTHO CM: Patient insurance denied patient for rehab. Isabelle from [facility] spoke to patient and she can go Self pay. Patient will be going to room 208 at [facility]. [facility] set up for 10 am on WednesdayAugust 28. Silva at [facility] notified of patient going to SNF per Esteban pharmacist. Scripts will be faxed over to Pharmacy at the [facility]. Case Management will continue to follow patient til discharge. Moni Xavier Rn - 08/28/2020 13:26 EDT documented in this encounter Plan of Treatment Not on file documented as of this encounter Visit Diagnoses Not on filedocumented in this encounter
--- OUTSIDE RECORDS SUMMARY | 2024-08-09 13:20 | XMS_ITS | Encounter Summary ---
Author Organization [facility] [employer] Address [address] [place] [address] Care Team Providers Care Maintenance Associate Name Role Phone Unavailable Primary Care Provider Unavailabl e Encounter Details Date Type Department Care Team (Late st Contact Info) Description 08/28/2020 Transcribed Document [facility] [place] [address] ProviderMariela MD [address] [place] [address] Social History Tobacco Use Types [...] Cerner Conversion Note - Mariela ProviderMD - 08/28/2020 9:17 [place] [address] SOFIA GILL :1940 Visit Time:08/20/2020 Your Visit Summary Your Care Team Admitting Physician - NIMO SAENZ MD-ORT Attending Physician - NIMO SAENZ MD-ORT Primary Care Physician - NILA CHO NP-JASMINE Referring Physician - NIMO SAENZ MD-EFFIE Your Diagnosis A. fib Acute blood loss anemia Acute kidney injury Chronic venous insufficiency HTN (hypertension) Hypercholesteremia Hypothyroid Obesity (BMI 30-39.9) Presence of right artificial knee joint, Presence of right artificial knee joint, Presence of right artificial knee joint, Presence of right artificial knee joint, S/p R TKA revision Right knee pain Sleep apnea Status post quadriceps tendon repair These Are Your Goals wants to be able to walk again. - Not met (Barriers: Pain) To get the infection taken care of and go home. - Not met To get better and walk again Discharge Vitals Temperature 36.6 ??C Heart Rate (Monitored) 70 Respiratory Rate 16 Blood Pressure 127/56 What to do next Instructions From Your Care Team Aspirin 81mg EC twice daily is your blood clot prevention regimen. Please take for 45 days. Gabapentin has been prescribed at bedtime to help with pain. It will make your drowsy. You have been prescribed 2 as needed pain medications that you can have every 6 hours. -Tramadol 1-2 tablets - This can be used for any pain, but better for mild pain (1-3). AND -Oxycodone 5mg 1 to 2 tablets. A general guide is 1 tablet for moderate pain (4-6) and 2 tablets for severe pain (7-10). Monitor for constipation and drink plenty of fluid. Taking pain medication with food may reduce GI upset. Rehabilitation: [facility] for report Discharge Summary: fax to Transportation: Maria L will draft roller picker for 10am September 27. Discharge Follow Up Instructions: Follow-up with Dr. Saenz as scheduled, Order Comment: Follow-up with PCP as scheduled or PRN Activity: Per Dr. Hameed recommendations, Discharge Activity: Other (use Special Instructions) Diet: Discharge Diet: Resume usual diet as tolerated Follow-Up Appointments Follow Up with SOLOMON MCCRACKEN PA-C When 09/09/2020 10:00 AM EDT Where: [address] [facility] [address] [place] [address]- Medications What How Much When Instructions Next Dose acetaminophen (acetaminophen 500 mg oral tablet) 2 Tablet(s) Oral Every 8 Hours Duration: 30 Day(s) docusate (docusate sodium 100 mg oral capsule) 1 Capsule(s) Oral Two Times A Day as needed for as needed for constipation Duration: 30 Day(s) gabapentin (gabapentin 300 mg oral capsule) 1 Capsule(s) Oral At Bedtime Duration: 30 Day(s) aspirin (aspirin 81 mg oral delayed release tablet) 1 Tablet(s) Oral Two Times A Day Duration: 45 Day(s) This is for blood clot prevention. oxyCODONE (oxyCODONE 10 mg oral tablet) 1 Tablet(s) Oral Every 6 Hours as needed for moderate to severe pain Duration: 7 Day(s) 1 tab moderate (4-6) 2 tab severe (7-10) traMADol (traMADol 50 mg oral tablet) 1 Tablet(s) Oral Every 6 Hours as needed for Pain (Mild 1-3) Duration: 7 Day(s) 1 or 2 tabs cephalexin (cephalexin 500 mg oral capsule) 1 Capsule(s) Oral Every 12 hours cetirizine (cetirizine 10 mg oral tablet) 1 Tablet(s) Oral Every Day cyanocobalamin (cyanocobalamin 5000 mcg oral tablet, extended release) 1 Tablet(s) Oral Every Day diclofenac 75 Milligram(s) Oral Two Times A Day doxycycline (doxycycline monohydrate 50 mg oral capsule) 2 Capsule(s) Oral Every 12 hours Duration: 1 Day(s) DULoxetine (Cymbalta 60 mg oral delayed release capsule) 1 Capsule(s) Oral Every Day (do not crush or chew) ferrous sulfate (ferrous sulfate 325 mg (65 mg elemental iron) oral delayed release tablet) 1 Tablet(s) Oral Every Day fluticasone nasal (fluticasone 50 mcg/ inh nasal spray) 2 [place](s) Nostrils Both Two Times A Day as needed for Allergies furosemide (furosemide 40 mg oral tablet) 1 Tablet(s) Oral Every Day levothyroxine (Synthroid 100 mcg (0.1 mg) oral tablet) 1 Tablet(s) Oral Every Day lisinopril 5 Milligram(s) Oral Every Day multivitamin (Multiple Vitamins oral tablet) 1 Tablet(s) Oral Every Day Non Formulary (calcium carbonate vitamin D3) Non Formulary (Tumerick 500 mg) polyethylene glycol 3350 (MiraLax oral powder for reconstitution) 17 Gram(s) Oral Every Day potassium chloride (potassium chloride 20 mEq oral tablet, extended release) 1 Tablet(s) Oral Two Times A Day rosuvastatin (Crestor 10 mg oral tablet) 1 Tablet(s) Oral At Bedtime Take your medications faithfully. Do NOT skip [...] Please dispose of unused and medications per your retail pharmacy guidance. Allergies amLODIPine valdecoxib Bextra (Itching) Latex (Itching) Mobic (Itching) Naprosyn (Itching) etodolac (Itching) penicillin (Shortness of breath) phentermine (unknown reaction) sulfa drugs (Itching) Immunizations This Visit No Immunizations Found Education Materials What to expect after the Procedure: After the procedure, it is common to have: ??? Pain and swelling. ??? A small amount of blood or clear fluid coming from your incision for up to 7 days. ??? It is normal to have a moderate amount of bleeding from the site of the drain that was pulled on the morning after surgery. You can hold pressure on the area for 3-5 minutes and cover with a bandage as needed. Diet: ??? Resume usual diet ??? No alcoholic beverages while taking pain medication ??? Drink 8-10 glasses of water a day to prevent constipation from pain medication ??? Increase fiber to help prevent constipation. Straining can cause increased pressure and pain in your incision area ??? Increase protein to promote healing Driving: ??? Do not drive until your health care provider approves. Ask your health care provider when it is safe to drive if you have an immobilizer on your knee. ??? Do not drive or operate heavy machinery while taking prescription pain medicine. ??? Do not drive for 24 hours if you received a sedative. Activity: ??? Do not lift anything that is heavier than 10 lb (4.5 kg) until your health care provider approves. ??? No strenuous activity ??? Avoid high-impact activities, including running, jumping rope, and jumping jacks. ??? Avoid sitting for a long time without moving. Get up and move around at least every few hours. ??? Keep legs elevated while seated and place surgery leg on 2-3 pillows, this will decrease swelling ??? Continue doing ???tub time?? with meyer basin tub and blue foam Zero Knee at least 3 times a day for 30 minutes at a time. More often is better. ??? Continue using walker until cleared by physical therapy Bathing: ??? Do not take baths, swim, or use a hot tub for one month after surgery. ??? May shower on the third day after surgery by covering incision with Glad Brand Press and Seal saran wrap. After showering, dry off completely BEFORE removing saran wrap. ??? Use Press and Seal saran wrap to shower for one month after surgery ??? You must be seated to shower until you are no longer using the walker Other: ??? Use ice therapy for 20-30 minutes at a time and leave off for 20-30 minutes at a time. Always keep a towel or cloth between the ice wrap and your skin. Please remember, to use water AND either ice or 4 frozen water bottles in the [facility] CU[facility]. ??? Continue to use Incentive Spirometer 10 times an hour while awake for one month to help prevent pneumonia ??? Remove RAJI WRAP and cotton roll on . There is a mepilex dressing on your knee, leave this in place for 2 weeks. Continue to cover this with glad press and seal for showers. If there is any drainage after 7 days, please call the office and let us know. ??? Sleep in the long, meyer knee immobilizer for 10 days. ??? ASA 81mg twice a day for 45 days, Contact a health care provider if: ??? You have more redness, swelling, or pain around your incision. ??? You have more fluid or blood coming from your incision. ??? Your incision or drain site feels warm to the touch. ??? You have pus or a bad smell coming from your incision. ??? You have a fever. ??? Your incision breaks open after your health care provider removes your sutures, skin glue, or adhesive tape. ??? Your prosthesis feels loose. ??? You have knee pain that does not go away. Get help right away if you have: ??? Pain or swelling in your calf or thigh ??? shortness of breath or difficulty breathing ??? chest pain DVT: Blood Clot Blood clots are a common risk after an orthopedic surgery Symptoms: ??? Swelling of your leg or arm, especially if one side is much worse. ??? Warmth and redness of your leg or arm, especially if one side is much worse. ??? Pain in your arm or leg. If the clot is in your leg, symptoms may be more noticeable or worse when you stand or walk. ??? A feeling of pins and needles, if the clot is in the arm. The symptoms of a DVT that has traveled to the lungs (pulmonary embolism, PE) usually start suddenly and include: ??? Shortness of breath while active or at rest. ??? Coughing or coughing up blood or blood-tinged mucus. ??? Chest pain that is often worse with deep breaths. ??? Rapid or irregular heartbeat. ??? Feeling light-headed or dizzy. ??? Fainting. ??? Feeling anxious. ??? Sweating. There may also be pain and swelling in a leg if that is where the blood clot started. How is this prevented? Exercise regularly. For at least 30 minutes every day, engage in: ? Activity that involves moving your arms and legs. ? Activity that encourages good blood flow through your body by increasing your heart rate. ??? Exercise your arms and legs every hour during long-distance travel (over 4 hours). ??? Drink plenty of water and avoid drinking alcohol while traveling. ??? Avoid sitting or lying in bed for long periods of time without moving your legs. ??? Maintain a weight that is appropriate for your height. Ask your health care provider what weight is healthy for you. ??? If you are a woman who is over 35 years of age, avoid unnecessary use of medicines that contain estrogen. These include control pills. ??? Do not smoke, especially if you take estrogen medicines. If you need help quitting, ask your health care provider. ??? Wear compression stockings (if told by your health care provider) to help prevent blood clots from forming. High Fiber/High Protein Diet High fiber foods: To prevent constipation ??? Grains Whole-grain breads. Multigrain cereal. Oats and oatmeal. Brown rice. Barley. Bulgur wheat. Millet. Bran muffins. Popcorn. [place] wafer crackers. ??? Vegetables Sweet potatoes. Spinach. Kale. Artichokes. Cabbage. Broccoli. Green peas. Carrots. Squash. ??? Fruits Berries. Pears. Apples. Oranges. Avocados. Prunes and raisins. Dried figs. ??? Meats and Other Protein Sources [place], kidney, call, and soy beans. Split peas. Lentils. Nuts and seeds. ??? Dairy Fiber-fortified yogurt. ??? Beverages Fiber-fortified soy milk. Fiber-fortified orange juice. ??? Other Fiber bars. High-protein foods: To promote healing High-protein foods contain 4 grams (4 g) or more of protein per serving. They include: ??? Beef, ground sirloin (cooked) ??? 3 oz have 24 g of protein. ??? Cheese (hard) ??? 1 oz has 7 g of protein. ??? Chicken breast, boneless and skinless (cooked) ??? 3 oz have 13.4 g of protein. ??? Cottage cheese ??? 1/2 cup has 13.4 g of protein. ??? Egg ??? 1 egg has 6 g of protein. ??? Fish, filet (cooked) ??? 1 oz has 6???7 g of protein. ??? Garbanzo beans (canned or cooked) ??? 1/2 cup has 6???7 g of protein. ??? Kidney beans (canned or cooked) ??? 1/2 cup has 6???7 g of protein. ??? Wells (cooked) ??? 3 oz has 24 g of protein. ??? Milk ??? 1 cup (8 oz) has 8 g of protein. ??? Nuts (peanuts, pistachios, almonds) ??? 1 oz has 6 g of protein. ??? Peanut butter ??? 1 oz has 7???8 g of protein. ??? Pork tenderloin (cooked) ??? 3 oz has 18.4 g of protein. ??? Pumpkin seeds ??? 1 oz has 8.5 g of protein. ??? Soybeans (roasted) ??? 1 oz has 8 g of protein. ??? Soybeans (cooked) ??? 1/2 cup has 11 g of protein. ??? Soy milk ??? 1 cup (8 oz) has 5???10 g of protein. ??? Soy or vegetable gray ??? 1 gray has 11 g of protein. ??? [place] seeds ??? 1 oz has 5.5 g of protein. ??? Tofu (firm) ??? 1/2 cup has 20 g of protein. ??? Tuna (canned in water) ??? 3 oz has 20 g of protein. ??? Yogurt ??? 6 oz has 8 g of protein. Fall Prevention ??? Use night lights. ??? Install grab bars by the toilet and in the tub and shower. Do not use towel bars as grab bars. ??? Use non-skid mats or decals on the floor of the tub or shower. ??? If you need to sit down while you are in the shower, use a plastic, non-slip stool. ??? Keep the floor dry. Immediately clean up any water that spills on the floor. ??? Remove soap buildup in the tub or shower on a regular basis. ??? Remove throw rugs and other tripping hazards from the floor. ??? Place frequently used items in [id number] places ??? Keep electrical cables out of the way. ??? Do not leave any items on the stairs. ??? Make sure that there are handrails on both sides of the stairs. Fix handrails that are broken or loose. Make sure that handrails are as long as the stairways. ??? Check any carpeting to make sure that it is firmly attached to the stairs. Fix any carpet that is loose or worn. ??? Avoid having throw rugs at the top or bottom of stairways, or secure the rugs with carpet tape to prevent them from moving. ??? Wear closed-toe shoes that fit well and support your feet. Wear shoes that have rubber soles or low heels. ??? Use mobility aids as needed, such as canes, walkers, scooters, and crutches. ??? Turn on lights if it is dark. Replace any light bulbs that burn out. ??? Set up furniture so that there are clear paths. Keep the furniture in the same spot. ??? Be aware of any and all pets. ??? Review your medicines with your healthcare provider. Some medicines can cause dizziness or changes in blood pressure, which increase your risk of falling. Hand Washing You should wash your hands whenever you think they are dirty. You should also wash your hands: ??? After: ? Working or playing outside. ? Touching an animal or its toys or leash. ? Handling livestock. ? Using the bathroom. ? Using household fire boat engineer or toxic chemicals. ? Touching or taking out the garbage. ? Touching anything dirty around your home. ? Handling soiled clothes or rags. ? Taking care of a sick child. This includes touching used tissues, toys, and clothes. ? Sneezing, coughing, or blowing your nose. ? Using public transportation. ? Shaking hands. ? Using a phone, including your mobile phone. ? Touching money. ??? Before and after: ? Preparing food. ? Feeding a baby or young child. ? Eating. ? Visiting or taking care of someone who is sick. ? Changing a diaper. ? Changing a bandage (dressing) or taking care of an injury or wound. ? Giving or taking medicine. If soap and clean water are not available, use an alcohol-based wipe, spray, or hand gel. Use a hand-sanitizing agent that contains at least 60% alcohol. If you are preparing food, hand sanitizers are not recommended as a substitute for hand washing. Walker Use To Walk With a Front-Wheeled Walker: 1. Slide your front-wheeled walker one step-length in front of you. Your toes should be farther forward than the back legs of your walker. 2. Hold on to the walker for support, and step your weaker (surgery) leg into the middle of the walker. 3. Step your stronger leg forward to land next to your weaker leg. 4. Repeat the process for each step. ??? Always keep both feet within the width of the walker's legs or wheels. ??? When using your walker, you should not feel like you need to lean forward or to the side to keep your hands on the handgrips. ??? Make sure you are following any weight-bearing instructions that your health care provider has given you. ??? Be careful not to let the walker get too far ahead of you as you walk. ??? If your walker does not glide well over carpet, consider cutting an X into two tennis balls and placing the balls over the back legs of your walker. To Use a Walker to Step Up: 1. Put all four legs of the walker on the curb or step. 2. Get your feet as close to the curb or step as you can. 3. Test the steadiness of the walker by pressing down on the handgrips. 4. If the walker is steady, press down on it with your hands as you step up with your stronger leg. 5. Step up with your weaker leg. To Use a Walker to Step Down: 1. Put all four legs of the walker on the surface that is lower than the curb or step. 2. Get your feet as close to the curb or step as you can. 3. Test the steadiness of the walker by pressing down on the handgrips. 4. If the walker is steady, press down on it with your hands as you step down with your weaker leg. 5. Step down with your stronger leg. Knee Immobilizer Brace: ??? Adjust the brace as often as needed while wearing it. It should be firm but not tight. Signs that the brace is too tight include: ? Puffiness (swelling). ? Numbness. ? Color change in your foot or ankle. ? Increased pain. acetaminophen (oral) (a SEET a MIN oh fen) Actamin, Anacin AF, Aurophen, Bromo [place], Children's Tylenol, Mapap, M-Pap, Pharbetol, Silapap Childrens, Tactinal, Tempra Quicklets, Tycolene, Tylenol, Vitapap What is the most important information I should know about acetaminophen? You should not use acetaminophen if you have severe liver disease. Use this medicine exactly as directed on the label, or as prescribed by your doctor. An overdose of acetaminophen can damage your liver or cause . Avoid also using other medicines that contain acetaminophen (sometimes abbreviated as APAP), or you could have a fatal overdose. Call your doctor at once if you have nausea, pain in your upper stomach, itching, loss of appetite, dark urine, sharon-colored stools, or jaundice (yellowing of your skin or eyes). Stop taking this medicine and call your doctor right away if you have skin redness or a rash that spreads and causes blistering and peeling. What is acetaminophen? Acetaminophen is a pain reliever and a fever refrigeration houseman. There are many brands and forms of acetaminophen available. Not all brands are listed on this leaflet. Acetaminophen is used to treat pain or fever caused by many conditions such as headache, muscle aches, arthritis, backache, toothaches, sore throat, colds, and flu. Acetaminophen may also be used for purposes not listed in this medication guide. What should I discuss with my healthcare provider before taking acetaminophen? You should not take acetaminophen if you are allergic to it, or if you have severe liver disease. Do not take acetaminophen without a doctor's advice if you have ever had alcoholic liver disease (cirrhosis) or if you drink more than 3 alcoholic beverages per day. Ask a doctor before using this medicine if you are or . Do not give this medicine to a child younger than 12 years old without the advice of a doctor. Extra-strength acetaminophen is not for use in a child younger than 6 years old. How should I take acetaminophen? Use exactly as directed on the label, or as prescribed by your doctor. Do not take more than your recommended dose. An overdose of acetaminophen can damage your liver or cause . ?? Adults and teenagers who weigh at least 110 pounds (50 kilograms): Do not take more than 1000 milligrams (mg) at one time. Do not take more than 4000 mg in 24 hours. ?? Children younger than 12 years old: Do not take more than 5 doses of acetaminophen in 24 hours. Use only the number of milligrams per dose that is recommended for the child's weight and age. Use exactly as directed on the label. ?? Avoid also using other medicines that contain acetaminophen, or you could have a fatal overdose. If you are treating a child, use a pediatric form of acetaminophen. Use only the special dose-measuring dropper or oral syringe that comes with the specific pediatric form you are using. Carefully follow the dosing directions on the medicine label. Measure liquid medicine carefully. Use the dosing syringe provided, or use a medicine dose-measuring device (not a kitchen spoon). Acetaminophen made for infants is available in two different dose concentrations, and each concentration comes with its own medicine dropper or oral syringe. Using the wrong device may cause you to give your child an overdose of acetaminophen. Never mix and match dosing devices between formulations of acetaminophen. You may need to shake the liquid before each use. Follow the directions on the medicine label. The chewable tablet must be chewed thoroughly before you swallow it. The oral powder should be placed directly on the tongue and swallowed. Make sure your hands are dry when handling a disintegrating tablet. Place the tablet on your tongue and allow it to dissolve, without chewing. Do not swallow the tablet whole. Allow it to dissolve in your mouth without chewing. To use the effervescent granules, dissolve one packet of the granules in at least 4 ounces of water. Stir and drink this mixture right away. Add a little more water to the glass, swirl gently and drink right away. Stop taking acetaminophen and call your doctor if: ?? you still have a sore throat after 2 days of use; ?? you still have a fever after 3 days of use; ?? you still have pain after 7 days of use (or 5 days if treating a child); ?? you have a skin rash, ongoing headache, nausea, vomiting, redness or swelling; or ?? if your symptoms get worse, or if you have any new symptoms. This medicine can affect the results of certain lab tests for glucose (sugar) in the urine. Tell any doctor who treats you that you are using acetaminophen. Store at room temperature away from heat and moisture. What happens if I miss a dose? Since acetaminophen is used when needed, you may not be on a dosing schedule. Skip any missed dose if it's almost time for your next dose. Do not use two doses at one time. What happens if I overdose? Seek emergency medical attention or call the Poison Help line at . An overdose of acetaminophen can damage your liver or cause . Early signs of acetaminophen overdose include loss of appetite, nausea, vomiting, sweating, or weakness. Later symptoms may include upper stomach pain, dark urine, and yellowing of your skin or eyes. What should I avoid while taking acetaminophen? Ask a doctor or pharmacist before using any other medicine that may contain acetaminophen (sometimes abbreviated as APAP). Taking too much acetaminophen can lead to a fatal overdose. Avoid drinking alcohol. It may increase your risk of liver damage. What are the possible side effects of acetaminophen? Get emergency medical help if you have signs of an allergic reaction: hives; difficulty breathing; swelling of your face, lips, tongue, or throat. In rare cases, acetaminophen may cause a severe skin reaction that can be fatal. This could occur even if you have taken acetaminophen in the past and had no reaction. Stop taking this medicine and call your doctor right away if you have skin redness or a rash that spreads and causes blistering and peeling. If you have this type of reaction, you should never again take any medicine that contains acetaminophen. Stop taking acetaminophen and call your doctor at once if you have signs of liver problems: loss of appetite, stomach pain (upper right side), tiredness, itching, dark urine, sharon-colored stools, jaundice (yellowing of the skin or eyes). Less serious side effects may be more likely, and you may have none at all. This is not a complete list of side effects and others may occur. Call your doctor for medical advice about side effects. You may report side effects to FDA at 6-046-RUO. What other drugs will affect acetaminophen? Other drugs may affect acetaminophen, including prescription and cufw-vrl-uejfdpc medicines, vitamins, and herbal products. Tell your doctor about all your current medicines and any medicine you start or stop using. Where can I get more information? Your pharmacist can provide more information about acetaminophen. Remember, keep this and all other medicines out of the reach of children, never share your medicines with others, and use this medication only for the indication prescribed. Every effort has been made to ensure that the information provided by [employer]. [employer]') is accurate, up-to-date, and complete, but no guarantee is made to that effect. Drug information contained herein may be time sensitive. [employer] information has been compiled for use by healthcare practitioners and consumers in the [place] and therefore [employer] does not warrant that uses outside of the [place] are appropriate, unless specifically indicated otherwise. [employer] drug information does not endorse drugs, diagnose patients or recommend therapy. [employer] drug information is an informational resource designed to assist licensed healthcare practitioners in caring for their patients and/or to serve consumers viewing this service as a supplement to, and not a substitute for, the expertise, skill, knowledge and judgment of healthcare practitioners. The absence of a warning for a given drug or drug combination in no way should be construed to indicate that the drug or drug combination is safe, effective or appropriate for any given patient. [employer] does not assume any responsibility for any aspect of healthcare administered with the aid of information [employer] provides. The information contained herein is not intended to cover all possible uses, directions, precautions, warnings, drug interactions, allergic reactions, or adverse effects. If you have questions about the drugs you are taking, check with your doctor, nurse or pharmacist. Copyright 5063-5765 [employer]. Version: 21.04. Revision Date: 10/06/2019. aspirin (oral) ( pir in) Arthritis Pain, Aspi-Cor, Aspir 81, Aspir-Low, Lisa Plus, Bufferin, Durlaza, Ecotrin, Ecpirin, Miniprin What is the most important information I should know about aspirin? You should not use aspirin if you have a bleeding disorder such as hemophilia, a recent history of stomach or intestinal bleeding, or if you are allergic to an NSAID (non-steroidal anti-inflammatory drug). Aspirin can cause Gilberto's syndrome, a serious and sometimes fatal condition in children. What is aspirin? Aspirin is a salicylate (ng-MFV-wf-ate) that is used to treat pain, and reduce fever or inflammation. Aspirin is sometimes used to treat or prevent heart attacks, strokes, and chest pain (angina). Aspirin should be used for cardiovascular conditions only under the supervision of a doctor. Aspirin may also be used for purposes not listed in this medication guide. What should I discuss with my healthcare provider before taking aspirin? Do not give this medicine to a child or teenager with a fever, flu symptoms, or chickenpox. Aspirin can cause Gilberto's syndrome, a serious and sometimes fatal condition in children. You should not use aspirin if you are allergic to it, or if you have: ?? a recent history of stomach or intestinal bleeding; ?? a bleeding disorder such as hemophilia; or ?? if you have ever had an asthma attack or severe allergic reaction after taking aspirin or an NSAID (non-steroidal anti-inflammatory drug). Tell your doctor if you have ever had: ?? asthma or seasonal allergies; ?? stomach ulcers; ?? liver disease; ?? kidney disease; ?? a bleeding or blood clotting disorder; ?? gout; or ?? heart disease, high blood pressure, or congestive heart failure. Taking aspirin during late may cause bleeding in the mother or the baby during delivery. Tell your doctor if you are or plan to become . You should not breastfeed while using this medicine. How should I take aspirin? Use exactly as directed on the label, or as prescribed by your doctor. Always follow directions on the medicine label about giving aspirin to a child. Take with food if aspirin upsets your stomach. You must chew the chewable tablet before you swallow it. Do not crush, chew, break, or open an enteric-coated or delayed/extended-release pill. Swallow it whole. If you need surgery, tell your surgeon you currently use this medicine. You may need to stop for a short time. Do not use aspirin if you smell a strong vinegar odor in the aspirin bottle. The medicine may no longer be effective. Store at room temperature away from moisture and heat. What happens if I miss a dose? Since aspirin is used when needed, you may not be on a dosing schedule. Skip any missed dose if it's almost time for your next dose. Do not use two doses at one time. What happens if I overdose? Seek emergency medical attention or call the Poison Help line at . Overdose symptoms may include stomach pain, vomiting, diarrhea, vision or hearing problems, fast or slow breathing, or confusion. What should I avoid while taking aspirin? Avoid alcohol. Heavy drinking can increase your risk of stomach bleeding. If you are taking aspirin to prevent heart attack or stroke, avoid also taking ibuprofen (Advil, Motrin). Ibuprofen can make aspirin less effective in protecting your heart and blood vessels. If you must use both medications, ask your doctor how far apart your doses should be. Ask a doctor or pharmacist before using other medicines for pain, fever, swelling, or cold/flu symptoms. They may contain ingredients similar to aspirin (such as magnesium salicylate, ibuprofen, ketoprofen, or naproxen). What are the possible side effects of aspirin? Get emergency medical help if you have signs of an allergic reaction: hives; difficult breathing; swelling of your face, lips, tongue, or throat. Stop using aspirin and call your doctor at once if you have: ?? ringing in your ears, confusion, hallucinations, rapid breathing, seizure (convulsions); ?? severe nausea, vomiting, or stomach pain; ?? bloody or tarry stools, coughing up blood or vomit that looks like coffee grounds; ?? fever lasting longer than 3 days; or ?? swelling, or pain lasting longer than 10 days. Common side effects may include: ?? upset stomach, heartburn; ?? drowsiness; or ?? mild headache. This is not a complete list of side effects and others may occur. Call your doctor for medical advice about side effects. You may report side effects to FDA at 5-752-FNJ-3315. What other drugs will affect aspirin? Ask your doctor before using aspirin if you take an antidepressant. Taking certain antidepressants with aspirin may cause you to bruise or bleed easily. Ask a doctor or pharmacist before using aspirin with any other medications, especially: ?? a blood thinner (warfarin, Coumadin, Jantoven), or other medication used to prevent blood clots; or ?? other salicylates such as Nuprin Backache Caplet, Kaopectate, KneeRelief, Pamprin Cramp Formula, Pepto-Bismol, Tricosal, Trilisate, and others. This list is not complete. Other drugs may affect aspirin, including prescription and uvdj-qqv-xmrwgqm medicines, vitamins, and herbal products. Not all possible drug interactions are listed here. Where can I get more information? Your pharmacist can provide more information about aspirin. Remember, keep this and all other medicines out of the reach of children, never share your medicines with others, and use this medication only for the indication prescribed. Every effort has been made to ensure that the information provided by [employer]. [employer] is accurate, up-to-date, and complete, but no guarantee is made to that effect. Drug information contained herein may be time sensitive. [employer] information has been compiled for use by healthcare practitioners and consumers in the [place] and therefore [employer] does not warrant that uses outside of the [place] are appropriate, unless specifically indicated otherwise. [employer] drug information does not endorse drugs, diagnose patients or recommend therapy. [employer] drug information is an informational resource designed to assist licensed healthcare practitioners in caring for their patients and/or to serve consumers viewing this service as a supplement to, and not a substitute for, the expertise, skill, knowledge and judgment of healthcare practitioners. The absence of a warning for a given drug or drug combination in no way should be construed to indicate that the drug or drug combination is safe, effective or appropriate for any given patient. [employer] does not assume any responsibility for any aspect of healthcare administered with the aid of information [employer] provides. The information contained herein is not intended to cover all possible uses, directions, precautions, warnings, drug interactions, allergic reactions, or adverse effects. If you have questions about the drugs you are taking, check with your doctor, nurse or pharmacist. Copyright 2113-8190 [employer]. Version: 16.02. Revision Date: 10/18/2019. gabapentin (GA ba PEN tin) Gralise, Horizant, Neurontin What is the most important information I should know about gabapentin? Gabapentin can cause life-threatening breathing problems, especially if you already have a breathing disorder or if you use other medicines that can make you drowsy or slow your breathing. Seek emergency medical attention if you have very slow breathing. Some people have thoughts about suicide or behavior changes while taking gabapentin. Stay alert to changes in your mood or symptoms. Report any new or worsening symptoms to your doctor. Do not stop using gabapentin suddenly, even if you feel fine. What is gabapentin? Gabapentin is used together with other medicines to treat partial seizures in adults and children at least 3 years old. Gabapentin is also used to treat nerve pain caused by herpes virus or shingles (herpes zoster) in adults. Use only the brand and form of gabapentin your doctor has prescribed. Check your medicine each time you get a refill to make sure you receive the correct form. Gralise is used only to treat nerve pain. Horizant is used to treat nerve pain and restless legs syndrome (RLS). Neurontin is used to treat nerve pain and seizures. Gabapentin may also be used for purposes not listed in this medication guide. What should I discuss with my healthcare provider before taking gabapentin? You should not use gabapentin if you are allergic to it. Tell your doctor if you have ever had: ?? breathing problems or lung disease, such as chronic obstructive pulmonary disease (COPD); ?? kidney disease (or if you are on dialysis); ?? diabetes; ?? depression, a mood disorder, or suicidal thoughts or actions; ?? a drug addiction; ?? a seizure (unless you take gabapentin to treat seizures); ?? liver disease; ?? heart disease; or ?? (for patients with RLS) if you are a day sleeper or work a hourly shift. Some people have thoughts about suicide while taking this medicine. Children taking gabapentin may have behavior changes. Stay alert to changes in your mood or symptoms. Report any new or worsening symptoms to your doctor. It is not known whether this medicine will harm an unborn baby. Tell your doctor if you are or plan to become . Seizure control is very important during , and having a seizure could harm both mother and baby. Do not start or stop taking gabapentin for seizures without your doctor's advice, and tell your doctor right away if you become . If you are , your name may be listed on a registry to track the effects of gabapentin on the baby. It may not be safe to breastfeed while using this medicine. Ask your doctor about any risk. How should I take gabapentin? Follow all directions on your prescription label. Do not take this medicine in larger or smaller amounts or for longer than recommended. If your doctor changes your brand, strength, or type of gabapentin, your dosage needs may change. Ask your pharmacist if you have any questions about the new kind of gabapentin you receive at the pharmacy. Both Gralise and Horizant should be taken with food. Neurontin can be taken with or without food. If you break a Neurontin tablet and take only half of it, take the other half at your next dose. Any tablet that has been broken should be used as soon as possible or within a few days. Swallow the capsule or tablet whole and do not crush, chew, break, or open it. Measure liquid medicine carefully. Use the dosing syringe provided, or use a medicine dose-measuring device (not a kitchen spoon). Do not stop using gabapentin suddenly, even if you feel fine. Stopping suddenly may cause increased seizures. Follow your doctor's instructions about tapering your dose. In case of emergency, wear or carry medical identification to let others know you have seizures. This medicine can cause unusual results with certain medical tests. Tell any doctor who treats you that you are using gabapentin. Store gabapentin tablets and capsules at room temperature away from light and moisture. Store the liquid medicine in the refrigerator. Do not freeze. What happens if I miss a dose? Take the medicine as soon as you can, but skip the missed dose if it is almost time for your next dose. Do not take two doses at one time. If you take Horizant: Skip the missed dose and use your next dose at the regular time. Do not use two doses of Horizant at one time. What happens if I overdose? Seek emergency medical attention or call the Poison Help line at . What should I avoid while taking gabapentin? Avoid driving or hazardous activity until you know how this medicine will affect you. Your reactions could be impaired. Dizziness or drowsiness can cause falls, accidents, or severe injuries. Avoid taking an antacid within 2 hours before you take gabapentin. Antacids can make it harder for your body to absorb gabapentin. Avoid drinking alcohol while taking gabapentin. What are the possible side effects of gabapentin? Get emergency medical help if you have signs of an allergic reaction: hives; difficult breathing; swelling of your face, lips, tongue, or throat. Seek medical treatment if you have a serious drug reaction that can affect many parts of your body. Symptoms may include: skin rash, fever, swollen glands, muscle aches, severe weakness, unusual bruising, upper stomach pain, or yellowing of your skin or eyes. Report any new or worsening symptoms to your doctor, such as: mood or behavior changes, anxiety, panic attacks, trouble sleeping, or if you feel impulsive, irritable, agitated, hostile, aggressive, restless, hyperactive (mentally or physically), depressed, or have thoughts about suicide or hurting yourself. Call your doctor at once if you have: ?? weak or shallow breathing; ?? blue-colored skin, lips, fingers, and toes; ?? confusion, extreme drowsiness or weakness; ?? problems with balance or muscle movement; ?? unusual or involuntary eye movements; or ?? increased seizures. Gabapentin can cause life-threatening breathing problems. A person caring for you should seek emergency medical attention if you have slow breathing with long pauses, blue colored lips, or if you are hard to wake up. Breathing problems may be more likely in older adults or in people with COPD. Some side effects are more likely in children taking gabapentin. Contact your doctor if the child taking this medicine has any of the following side effects: ?? changes in behavior; ?? memory problems; ?? trouble concentrating; or ?? acting restless, hostile, or aggressive. Common side effects may include: ?? fever, chills, sore throat, body aches, unusual tiredness; ?? jerky movements; ?? headache; ?? double vision; ?? swelling of your legs and feet; ?? tremors; ?? trouble speaking; ?? dizziness, drowsiness, tiredness; ?? problems with balance or eye movements; or ?? nausea, vomiting. This is not a complete list of side effects and others may occur. Call your doctor for medical advice about side effects. You may report side effects to FDA at 5-057-RHM-3759. What other drugs will affect gabapentin? Using gabapentin with other drugs that make you drowsy or slow your breathing can cause dangerous side effects or . Ask your doctor before using opioid medication, a sleeping pill, cold or allergy medicine, a muscle relaxer, or medicine for anxiety or seizures. Other drugs may affect gabapentin, including prescription and mfkp-vxw-uvmxhtb medicines, vitamins, and herbal products. Tell your doctor about all your current medicines and any medicine you start or stop using. Where can I get more information? Your pharmacist can provide more information about gabapentin. Remember, keep this and all other medicines out of the reach of children, never share your medicines with others, and use this medication only for the indication prescribed. Every effort has been made to ensure that the information provided by [employer]. [employer]') is accurate, up-to-date, and complete, but no guarantee is made to that effect. Drug information contained herein may be time sensitive. [employer] information has been compiled for use by healthcare practitioners and consumers in the [place] and therefore [employer] does not warrant that uses outside of the [place] are appropriate, unless specifically indicated otherwise. [employer] drug information does not endorse drugs, diagnose patients or recommend therapy. [employer] drug information is an informational resource designed to assist licensed healthcare practitioners in caring for their patients and/or to serve consumers viewing this service as a supplement to, and not a substitute for, the expertise, skill, knowledge and judgment of healthcare practitioners. The absence of a warning for a given drug or drug combination in no way should be construed to indicate that the drug or drug combination is safe, effective or appropriate for any given patient. [employer] does not assume any responsibility for any aspect of healthcare administered with the aid of information [employer] provides. The information contained herein is not intended to cover all possible uses, directions, precautions, warnings, drug interactions, allergic reactions, or adverse effects. If you have questions about the drugs you are taking, check with your doctor, nurse or pharmacist. Copyright 6108-7521 [employer]. Version: 17.01. Revision Date: 03/26/2020. oxycodone (ox i KOE done) Oxaydo, OxyCONTIN, Oxyfast, OxyIR, Roxicodone, Xtampza ER What is the most important information I should know about oxycodone? MISUSE OF OPIOID MEDICINE CAN CAUSE ADDICTION, OVERDOSE, OR . Keep the medication in a place where others cannot get to it. Taking opioid medicine during may cause life-threatening withdrawal symptoms in the . Fatal side effects can occur if you use opioid medicine with alcohol, or with other drugs that cause drowsiness or slow your breathing. What is oxycodone? Oxycodone is an opioid pain medication used to treat moderate to severe pain. The extended-release form of oxycodone is for gjnbxb-oxf-ozqas treatment of pain and should not be used on an as-needed basis for pain. Oxycodone may also be used for purposes not listed in this medication guide. What should I discuss with my healthcare provider before using oxycodone? You should not use oxycodone if you are allergic to it, or if you have: ?? severe asthma or breathing problems; or ?? a blockage in your stomach or intestines. You should not use oxycodone unless you are already using a similar opioid medicine and are tolerant to it. Most brands of oxycodone are not approved for use in people under 18. OxyContin should not be given to a child younger than 11 years old. Tell your doctor if you have ever had: ?? breathing problems, sleep apnea; ?? a head injury, or seizures; ?? drug or alcohol addiction, or mental illness; ?? liver or kidney disease; ?? urination problems; or ?? problems with your gallbladder, pancreas, or thyroid. If you use opioid medicine while you are , your baby could become dependent on the drug. This can cause life-threatening withdrawal symptoms in the baby after it is born. Babies born dependent on opioids may need medical treatment for several weeks. Ask a doctor before using opioid medicine if you are . Tell your doctor if you notice severe drowsiness or slow breathing in the nursing baby. How should I use oxycodone? Follow the directions on your prescription label and read all medication guides. Never use oxycodone in larger amounts, or for longer than prescribed. Tell your doctor if you feel an increased urge to take more of this medicine. Never share opioid medicine with another person, especially someone with a history of drug abuse or addiction. MISUSE CAN CAUSE ADDICTION, OVERDOSE, OR . Keep the medication in a place where others cannot get to it. Selling or giving away opioid medicine is against the law. Stop taking all other dlrxym-yjd-ixvlv opioid pain medicines when you start taking extended-release oxycodone. Take oxycodone with food. Swallow the capsule or tablet whole to avoid exposure to a potentially fatal overdose. Do not crush, chew, break, open, or dissolve. If you cannot swallow a capsule whole, open it and sprinkle the medicine into a spoonful of pudding or applesauce. Swallow the mixture right away without chewing. Do not save it for later use. Never crush or break an oxycodone pill to inhale the powder or mix it into a liquid to inject the drug into your vein. This can cause in . Measure liquid medicine carefully. Use the dosing syringe provided, or use a medicine dose-measuring device (not a kitchen spoon). You should not stop using oxycodone suddenly. Follow your doctor's instructions about tapering your dose. Store at room temperature, away from heat, moisture, and light. Keep track of your medicine. Oxycodone is a drug of abuse and you should be aware if anyone is using your medicine improperly or without a prescription. Do not keep leftover opioid medication. Just one dose can cause in someone using this medicine accidentally or improperly. Ask your pharmacist where to locate a drug take-back disposal program. If there is no take-back program, flush the unused medicine down the toilet. What happens if I miss a dose? Since oxycodone is used for pain, you are not likely to miss a dose. Skip any missed dose if it is almost time for your next dose. Do not use two doses at one time. What happens if I overdose? Seek emergency medical attention or call the Poison Help line at . An opioid overdose can be fatal, especially in a child or other person using the medicine without a prescription. Overdose symptoms may include severe drowsiness, pinpoint pupils, slow breathing, or no breathing. Your doctor may recommend you get naloxone (a medicine to reverse an opioid overdose) and keep it with you at all times. A person caring for you can give the naloxone if you stop breathing or don't wake up. Your caregiver must still get emergency medical help and may need to perform CPR (cardiopulmonary resuscitation) on you while waiting for help to arrive. Anyone can buy naloxone from a pharmacy or local health department. Make sure any person caring for you knows where you keep naloxone and how to use it. What should I avoid while using oxycodone? Do not drink alcohol. Dangerous side effects or could occur. Avoid driving or operating machinery until you know how oxycodone will affect you. Dizziness or severe drowsiness can cause falls or other accidents. Avoid medication errors. Always check the brand and strength of oxycodone you get from the pharmacy. What are the possible side effects of oxycodone? Get emergency medical help if you have signs of an allergic reaction: hives; difficult breathing; swelling of your face, lips, tongue, or throat. Opioid medicine can slow or stop your breathing, and may occur. A person caring for you should give naloxone and/or seek emergency medical attention if you have slow breathing with long pauses, blue colored lips, or if you are hard to wake up. Call your doctor at once if you have: ?? noisy breathing, sighing, shallow breathing, breathing that stops during sleep; ?? a slow heart rate or weak pulse; ?? a light-headed feeling, like you might pass out; ?? confusion, unusual thoughts or behavior; ?? seizure (convulsions); ?? low cortisol levels-- nausea, vomiting, loss of appetite, dizziness, worsening tiredness or weakness; or ?? high levels of serotonin in the body--agitation, hallucinations, fever, sweating, shivering, fast heart rate, muscle stiffness, twitching, loss of coordination, nausea, vomiting, diarrhea. Serious breathing problems may be more likely in older adults and in those who are debilitated or have wasting syndrome or chronic breathing disorders. Common side effects may include: ?? drowsiness, headache, dizziness, tiredness; or ?? constipation, stomach pain, nausea, vomiting. This is not a complete list of side effects and others may occur. Call your doctor for medical advice about side effects. You may report side effects to FDA at 9-483-XYL-8792. What other drugs will affect oxycodone? You may have breathing problems or withdrawal symptoms if you start or stop taking certain other medicines. Tell your doctor if you also use an antibiotic, antifungal medication, heart or blood pressure medication, seizure medication, or medicine to treat HIV or hepatitis C. Opioid medication can interact with many other drugs and cause dangerous side effects or . Be sure your doctor knows if you also use: ?? cold or allergy medicines, bronchodilator asthma/COPD medication, or a diuretic ('water pill'); ?? medicines for motion sickness, irritable bowel syndrome, or overactive bladder; ?? other opioids--opioid pain medicine or prescription cough medicine; ?? a sedative like Valium--diazepam, alprazolam, lorazepam, Xanax, Klonopin, Versed, and others; ?? drugs that make you sleepy or slow your breathing--a sleeping pill, muscle relaxer, medicine to treat mood disorders or mental illness; or ?? drugs that affect serotonin levels in your body--a stimulant, or medicine for depression, Parkinson's disease, migraine headaches, serious infections, or nausea and vomiting. This list is not complete and many other drugs may affect oxycodone. This includes prescription and frcu-yaz-xxqnrbh medicines, vitamins, and herbal products. Not all possible drug interactions are listed here. Where can I get more information? Your pharmacist can provide more information about oxycodone. Remember, keep this and all other medicines out of the reach of children, never share your medicines with others, and use this medication only for the indication prescribed. Every effort has been made to ensure that the information provided by [employer]. ('[employer]') is accurate, up-to-date, and complete, but no guarantee is made to that effect. Drug information contained herein may be time sensitive. [employer] information has been compiled for use by healthcare practitioners and consumers in the [place] and therefore [employer] does not warrant that uses outside of the [place] are appropriate, unless specifically indicated otherwise. [employer]'s drug information does not endorse drugs, diagnose patients or recommend therapy. [employer] drug information is an informational resource designed to assist licensed healthcare practitioners in caring for their patients and/or to serve consumers viewing this service as a supplement to, and not a substitute for, the expertise, skill, knowledge and judgment of healthcare practitioners. The absence of a warning for a given drug or drug combination in no way should be construed to indicate that the drug or drug combination is safe, effective or appropriate for any given patient. [employer] does not assume any responsibility for any aspect of healthcare administered with the aid of information [employer] provides. The information contained herein is not intended to cover all possible uses, directions, precautions, warnings, drug interactions, allergic reactions, or adverse effects. If you have questions about the drugs you are taking, check with your doctor, nurse or pharmacist. Copyright 9805-2301 [employer]. Version: 14.02. Revision Date: 03/28/2020. oxycodone (ox i KOE done) Oxaydo, OxyCONTIN, Oxyfast, OxyIR, Roxicodone, Xtampza ER What is the most important information I should know about oxycodone? MISUSE OF OPIOID MEDICINE CAN CAUSE ADDICTION, OVERDOSE, OR . Keep the medication in a place where others cannot get to it. Taking opioid medicine during may cause life-threatening withdrawal symptoms in the . Fatal side effects can occur if you use opioid medicine with alcohol, or with other drugs that cause drowsiness or slow your breathing. What is oxycodone? Oxycodone is an opioid pain medication used to treat moderate to severe pain. The extended-release form of oxycodone is for xbtepb-pia-ezxau treatment of pain and should not be used on an as-needed basis for pain. Oxycodone may also be used for purposes not listed in this medication guide. What should I discuss with my healthcare provider before using oxycodone? You should not use oxycodone if you are allergic to it, or if you have: ?? severe asthma or breathing problems; or ?? a blockage in your stomach or intestines. You should not use oxycodone unless you are already using a similar opioid medicine and are tolerant to it. Most brands of oxycodone are not approved for use in people under 18. OxyContin should not be given to a child younger than 11 years old. Tell your doctor if you have ever had: ?? breathing problems, sleep apnea; ?? a head injury, or seizures; ?? drug or alcohol addiction, or mental illness; ?? liver or kidney disease; ?? urination problems; or ?? problems with your gallbladder, pancreas, or thyroid. If you use opioid medicine while you are , your baby could become dependent on the drug. This can cause life-threatening withdrawal symptoms in the baby after it is born. Babies born dependent on opioids may need medical treatment for several weeks. Ask a doctor before using opioid medicine if you are . Tell your doctor if you notice severe drowsiness or slow breathing in the nursing baby. How should I use oxycodone? Follow the directions on your prescription label and read all medication guides. Never use oxycodone in larger amounts, or for longer than prescribed. Tell your doctor if you feel an increased urge to take more of this medicine. Never share opioid medicine with another person, especially someone with a history of drug abuse or addiction. MISUSE CAN CAUSE ADDICTION, OVERDOSE, OR . Keep the medication in a place where others cannot get to it. Selling or giving away opioid medicine is against the law. Stop taking all other pburre-xjl-swdia opioid pain medicines when you start taking extended-release oxycodone. Take oxycodone with food. Swallow the capsule or tablet whole to avoid exposure to a potentially fatal overdose. Do not crush, chew, break, open, or dissolve. If you cannot swallow a capsule whole, open it and sprinkle the medicine into a spoonful of pudding or applesauce. Swallow the mixture right away without chewing. Do not save it for later use. Never crush or break an oxycodone pill to inhale the powder or mix it into a liquid to inject the drug into your vein. This can cause in . Measure liquid medicine carefully. Use the dosing syringe provided, or use a medicine dose-measuring device (not a kitchen spoon). You should not stop using oxycodone suddenly. Follow your doctor's instructions about tapering your dose. Store at room temperature, away from heat, moisture, and light. Keep track of your medicine. Oxycodone is a drug of abuse and you should be aware if anyone is using your medicine improperly or without a prescription. Do not keep leftover opioid medication. Just one dose can cause in someone using this medicine accidentally or improperly. Ask your pharmacist where to locate a drug take-back disposal program. If there is no take-back program, flush the unused medicine down the toilet. What happens if I miss a dose? Since oxycodone is used for pain, you are not likely to miss a dose. Skip any missed dose if it is almost time for your next dose. Do not use two doses at one time. What happens if I overdose? Seek emergency medical attention or call the Poison Help line at . An opioid overdose can be fatal, especially in a child or other person using the medicine without a prescription. Overdose symptoms may include severe drowsiness, pinpoint pupils, slow breathing, or no breathing. Your doctor may recommend you get naloxone (a medicine to reverse an opioid overdose) and keep it with you at all times. A person caring for you can give the naloxone if you stop breathing or don't wake up. Your caregiver must still get emergency medical help and may need to perform CPR (cardiopulmonary resuscitation) on you while waiting for help to arrive. Anyone can buy naloxone from a pharmacy or local health department. Make sure any person caring for you knows where you keep naloxone and how to use it. What should I avoid while using oxycodone? Do not drink alcohol. Dangerous side effects or could occur. Electronically signed by Chantal, Maureen Conversion Human Machine Interface Engineer Cerner at 06/16/2022 8:08 PM CDT documented in this encounter Plan of Treatment Not on file documented as of this encounter Visit Diagnoses Not on filedocumented in this encounter
--- OUTSIDE RECORDS SUMMARY | 2024-08-09 13:20 | XMS_ITS | Encounter Summary ---
Author Organization [employer] i[employer] Address [address] [place] [address] Care Team Providers Care Manager Architecture Name Role Phone Unavailable Primary Care Provider Unavailabl e Encounter Details Date Type Department Care Team (Late st Contact Info) Description 07/19/2019 Transcribed Document [facility] [place] [facility] [place] [address] ProviderMariela MD [address] [place] [address] Social History Tobacco Use Types [...] Cerner Conversion Note - Mariela ProviderMD - 07/19/2019 11:57 AM CDT Patient Education Materials Follows: How to Use a Knee Immobilizer A [...] have with your health care provider. Document Released: 02/15/2006 Document Revised: 02/01/2017 Document Reviewed: 02/01/2017 [employer] Interactive Patient Education ? 2019 [employer] documented in this encounter Plan of Treatment Not on file documented as of this encounter Visit Diagnoses Not on filedocumented in this encounter
--- OUTSIDE RECORDS SUMMARY | 2024-08-09 13:20 | XMS_ITS | Encounter Summary ---
Author Organization [employer] Address [address] [place] [address] Care Team Providers Care Chief Of Anesthesiology Name Role Phone Unavailable Primary Care Provider Unavailabl e Encounter Details Date Type Department Care Team (Late st Contact Info) Description 10/26/2020 Transcribed Document [facility] [place] [address] [place] [address] ProviderMariela MD [address] [place] [address] Social History Tobacco Use Types Packs/Day Years [...] Historical ProviderMD - 10/26/2020 2:06 AM CDT [place] Suicide Severity Rating Scale (C-SSRS) Entered On: 10/26/2020 3:22 EDT Performed On: 10/26/2020 3:19 EDT by Peggy Rayo RN [place] Suicide Severity Rating Scale (C-SSRS) CSSRS Past Month Wish to be : No CSSRS Past Month Suicidal Thoughts : No CSSRS Lifetime Suicide Behavior : No Suicide Severity Rating Score : 0 Suicide Severity Rating : No Additional Care Required at this time Peggy Rayo RN - 10/26/2020 3:19 EDT Electronically signed by Chantal [facility] Conversion Cabinet Professional Cerner at 06/16/2022 8:06 PM CDT documented in this encounter Plan of Treatment Not on file documented as of this encounter Visit Diagnoses Not on filedocumented in this encounter
--- OUTSIDE RECORDS SUMMARY | 2024-08-09 13:20 | XMS_ITS | Encounter Summary ---
Author Organization [employer] i[employer] Address [address] [place] [address] Care Team Providers Care Carpet Yarn Winder Operator Name Role Phone Unavailable Primary Care Provider Unavailabl e Encounter Details Date Type Department Care Team (Late st Contact Info) Description 08/28/2020 Transcribed Document [facility] [place] [facility] [place] [address] ProviderMariela MD [facility] [place] [address] Social History Tobacco Use Types [...] Conversion Note - Historical ProviderMD - 08/28/2020 1:49 PM CDT Discharge Summary, PT Entered On: 08/28/2020 13:51 EDT Performed On: 08/28/2020 13:49 EDT by JAMES IBANEZ PTA Discharge Summary Reason for Discharge : Discharged from hospital JAMES IBANEZ PTA - 08/28/2020 13:49 EDT Discharge Summary Comment, PT : Patient was discharged to rehab follow up from [facility] on 08/28/20 having met 0/2 acute therapy goals. At time of discharge patient was maxA x2 with bed mobility, and participated with exercises while sitting EOB. I agree with this discharge summary. Kiara Simon, PT KIARA SIMON, PT - 08/28/2020 15:05 EDT Intermediate Goals Other PT LTG Grid Goal #1 [...] lift used for bed MAX Ax2 08/26 JAMES IBANEZ, LIBRARY PAGE - 08/28/2020 13:49 EDT JAMES IBANEZ, LIBRARY PAGE - 08/28/2020 13:49 EDT JAMES IBANEZ, LIBRARY PAGE - 08/28/2020 13:49 EDT documented in this encounter Plan of Treatment Not on file documented as of this encounter Visit Diagnoses Not on filedocumented in this encounter
--- OUTSIDE RECORDS SUMMARY | 2024-08-09 13:20 | XMS_ITS | Encounter Summary ---
Author Organization [employer] i[employer] Address [address] [place] [address] Care Team Providers Care Thermocouple Tester Name Role Phone Unavailable Primary Care Provider Unavailabl e Encounter Details Date Type Department Care Team (Late st Contact Info) Description 08/23/2020 Transcribed Document [facility] [place] [facility] [place] [address] ProviderMariela MD [address] [place] [address] Social History Tobacco Use Types [...] Cerner Conversion Note - Historical ProviderMD - 08/23/2020 2:00 PM CDT PLEASE MODIFY BEFORE SIGNING CLINICAL DOCUMENTATION CLARIFICATION FORM: Dear : Alannah Date / Time: 08/23/2020 ____ Please exercise your independent, professional judgment in responding to the clarification form. Clinical indicators are provided on the bottom of this form for your review Please check appropriate box(s): [ ] Paroxysmal Atrial Fibrillation [ ] Chronic Atrial Fibrillation [xx ] History Atrial Fibrillation [ ] Other Diagnosis [ ] Unable to Determine For continuity of documentation, please document condition throughout progress notes and discharge summary. Thank You. Present Clinical Indicators - Signs / Symptoms / Labs Results and Location in Medical Record [ x ] Cardiac arrhythmia 08/20 H&P Past Medical History Cardiac arrhythmia [ x ] Atrial Fibrillation 08/20 Consult note Afib Present Risk Factors Results and Location in Medical Record [ x ] home meds 08/13 H&P Home Medications Aspir 81 Oral, Daily [ x ] [place] filter 08/20 Consult note History :Babak filter. Present Treatments Results and Location in Medical Record [ x ] Monitoring post op 08/20 monitor pt on postop med surg floor [ x ] ASA order MD orders 08/20 MAR Aspirin 81mg, Oral BID CDS/[place] Support Worker Signature: Charo Blancas ____ Phone #: [phone] Date/Time: 08/23/2020 ____ This is a permanent part of the Medical Record Q6 2019 [facility] Updated: Electronically signed by Chantal, Maureen Conversion Printing Sales Representative Cerner at 06/16/2022 8:02 PM CDT documented in this encounter Plan of Treatment Not on file documented as of this encounter Visit Diagnoses Not on filedocumented in this encounter
--- OUTSIDE RECORDS SUMMARY | 2024-08-09 13:20 | XMS_ITS | Encounter Summary ---
Author Organization [employer] iatives Address [address] [place] [address] Care Team Providers Care Nuclear Plant Instrument Technician Name Role Phone Unavailable Primary Care Provider Unavailabl e Encounter Details Date Type Department Care Team (Late st Contact Info) Description 10/26/2020 Transcribed Document [facility] [place] [address] ProviderMariela MD [address] [place] [address] Social History Tobacco Use Types Packs/Day [...] Conversion Note - Historical ProviderMD - 10/26/2020 2:19 PM CDT ED Discharge Entered On: 10/26/2020 14:20 EDT Performed On: 10/26/2020 14:19 EDT by Nancy Sood RN-PATIENT CARE BEDSIDE NON-EXEMPT Discharge Process Patient Disposition : Discharge Personal Belongings With Patient : Yes Patient Education Completed : Yes Teaching Evaluation : Verbalizes understanding IV Discontinued : Yes Nursing Documentation Completed : Yes Nancy Sood RN-PATIENT CARE BEDSIDE NON-EXEMPT - 10/26/2020 14:19 EDT ED Discharge Vital Signs Peripheral Pulse Rate : 84 bpm Respiratory Rate : 18 Breaths/Min Systolic Blood Pressure : 127 mmHg Diastolic Blood Pressure : 60 mmHg Oxygen Saturation : 97 % Nancy Sood RN-PATIENT CARE BEDSIDE NON-EXEMPT - 10/26/2020 14:19 EDT ED Discharge Discharge To : Acute care facility Mode Of Departure : Ambulance/ALS Discharge Instructions Reviewed With, Opportunity For Questions Given : Patient Nancy Sood RN-PATIENT CARE BEDSIDE NON-EXEMPT - 10/26/2020 14:19 EDT Electronically signed by Chantal [facility] Conversion Stone Circular Sawyer Cerner at 06/16/2022 8:04 PM CDT documented in this encounter Plan of Treatment Not on file documented as of this encounter Visit Diagnoses Not on filedocumented in this encounter
--- OUTSIDE RECORDS SUMMARY | 2024-08-09 13:20 | XMS_ITS | Encounter Summary ---
Author Organization [employer] Address [address] [place] [address] Care Team Providers Care Horse Rancher Name Role Phone Unavailable Primary Care Provider Unavailabl e Encounter Details Date Type Department Care Team (Late st Contact Info) Description 10/26/2020 Transcribed Document [facility] [place] Medicine [facility] [place] [address] ProviderMariela MD [address] [place], [place] [id number] Social History Tobacco Use Types Packs/Day Years [...] Conversion Note - Historical ProviderMD - 10/26/2020 10:28 AM CDT documented in this encounter Plan of Treatment Not on file documented as of this encounter Visit Diagnoses Not on filedocumented in this encounter
--- OUTSIDE RECORDS SUMMARY | 2024-08-09 13:20 | XMS_ITS | Encounter Summary ---
Author Organization [email or web address] Address [address] [place] [address] Care Team Providers Care Pilot Boat Operator Name Role Phone Unavailable Primary Care Provider Unavailabl e Encounter Details Date Type Department Care Team (Late st Contact Info) Description 10/26/2020 Transcribed Document [facility] [place] [facility] [place] [address] ProviderMariela MD [facility] [place] [address] Social History Tobacco Use Types [...] Conversion Note - Historical ProviderMD - 10/26/2020 7:56 AM CDT ED Assessment Entered On: 10/26/2020 7:59 EDT Performed On: 10/26/2020 7:56 EDT by Nancy Sood RN-PATIENT CARE BEDSIDE NON-EXEMPT ED Quick Look Assessment Level of Consciousness : Alert, Awake Orientation : Oriented x 4 Nancy Sood RN-PATIENT CARE BEDSIDE NON-EXEMPT - 10/26/2020 7:56 EDT Cardiovascular ASMT, ED Cardiovascular Assessment WDL : WDL with exceptions Nancy Sood RN-PATIENT CARE BEDSIDE NON-EXEMPT - 10/26/2020 7:56 EDT Pulses Grid Dorsalis Pedis Pulse, Left : 2+ normal Dorsalis Pedis Pulse, Right : 2+ normal Posterior Tibial Pulse, Left : 2+ normal Posterior Tibial Pulse, Right : 2+ normal Nancy Sood RN-PATIENT CARE BEDSIDE NON-EXEMPT - 10/26/2020 7:56 EDT Edema Ed Grid Edema, Foot, Left : 4+ severe/8 mm Edema, Foot, Right : 3+ moderate/6 mm Nancy Sood RN-PATIENT CARE BEDSIDE NON-EXEMPT - 10/26/2020 7:56 EDT Respiratory Respiratory Assessment WDL : WDL Nancy Sood RN-PATIENT CARE BEDSIDE NON-EXEMPT - 10/26/2020 7:56 EDT Gastrointestinal ED Gastrointestinal Assessment WDL : WDL Nancy Sood RN-PATIENT CARE BEDSIDE NON-EXEMPT - 10/26/2020 7:56 EDT Genitourinary Assessment, ED Genitourinary Assessment WDL : WDL Nancy Sood RN-PATIENT CARE BEDSIDE NON-EXEMPT - 10/26/2020 7:56 EDT Musculoskeletal Musculoskeletal Assessment WDL : WDL with exceptions Musculoskeletal Assessment Comment : RLE ROM significintly impared Nancy Sood RN-PATIENT CARE BEDSIDE NON-EXEMPT - 10/26/2020 7:56 EDT Integumentary Assessment Skin Description : Dry Skin Temperature : Warm Integumentary Assessment WDL : WDL with exceptions Skin Turgor : Elastic Integumentary Assessment Comment : skin dry and flakey - pt feet Nancy Sood RN-PATIENT CARE BEDSIDE NON-EXEMPT - 10/26/2020 7:56 EDT Neurologic ASMT, ED Neurologic Assessment WDL : WDL Neurological Assessment Comment : pt denies numbness and tingling to RLE Nancy Sood RN-PATIENT CARE BEDSIDE NON-EXEMPT - 10/26/2020 7:56 EDT documented in this encounter Plan of Treatment Not on file documented as of this encounter Visit Diagnoses Not on filedocumented in this encounter
--- OUTSIDE RECORDS SUMMARY | 2024-08-09 13:20 | XMS_ITS | Encounter Summary ---
Author Organization [email or web address] Address [address] [place] [address] Care Team Providers Care System Planning Engineer Name Role Phone Unavailable Primary Care Provider Unavailabl e Encounter Details Date Type Department Care Team (Late st Contact Info) Description 08/27/2020 Transcribed Document [facility] [place] [facility] [place] [address] ProviderMariela MD [facility] [place] [address] Social History Tobacco Use [...] Conversion Note - Historical ProviderMD - 08/27/2020 10:00 PM CDT Pain Assessment Entered On: 08/27/2020 23:36 EDT Performed On: 08/27/2020 22:36 EDT by Jessica Ovalle Lpn Intervention Information: traMADol Performed by Jessica Ovalle Lpn on 08/27/2020 21:36:00 EDT traMADol,50mg Oral Pain Assessment Pain Assessment : Follow-up assessment Pain Scale Goal : 3 Pain Scale Used : 0-10 Scale Pain Improved by Intervention : Yes Jessica Ovalle Lpn - 08/27/2020 23:36 EDT [...]
--- OUTSIDE RECORDS SUMMARY | 2024-08-09 13:20 | XMS_ITS | Encounter Summary ---
Author Organization [employer] Address [address] [place] [address] Care Team Providers Care Clinical Project Manager Name Role Phone Unavailable Primary Care Provider Unavailabl e Encounter Details Date Type Department Care Team (Late st Contact Info) Description 10/26/2020 Transcribed Document [facility] [place] [address] [place] [address] ProviderMariela MD [address] [place], [place] [address] Social History Tobacco Use Types Packs/Day Years [...] Conversion Note - Historical ProviderMD - 10/26/2020 2:18 PM CDT ED Event Note Entered On: 10/26/2020 14:19 EDT Performed On: 10/26/2020 14:18 EDT by Nancy Sood RN-PATIENT CARE BEDSIDE NON-EXEMPT ED Event Note ED Event Date/Time : 10/26/2020 14:18 EDT ED Description of Event : [facility] called and handoff report given to [facility] staff Nancy Sood RN-PATIENT CARE BEDSIDE NON-EXEMPT - 10/26/2020 14:18 EDT documented in this encounter Plan of Treatment Not on file documented as of this encounter Visit Diagnoses Not on filedocumented in this encounter
--- OUTSIDE RECORDS SUMMARY | 2024-08-09 13:20 | XMS_ITS | Encounter Summary ---
Author Organization [employer] Address [address] [place] [address] Care Team Providers Care Gimp Buttonhole Machine Operator Name Role Phone Unavailable Primary Care Provider Unavailabl e Encounter Details Date Type Department Care Team (Late st Contact Info) Description 10/26/2020 Transcribed Document [facility] [place] [facility] [place] [address] ProviderMariela MD [address] [place] [address] Social History Tobacco Use Types Packs/Day [...] ProviderMD - 10/26/2020 2:06 AM CDT ED Triage Entered On: 10/26/2020 2:36 EDT Performed On: 10/26/2020 2:32 EDT by Peggy Rayo RN ED Triage Across the Room Chief Complaint : Pt arrived via ems w/ c/o Right heel pain / swelling that began 3 weeks ago s/p knee tendon repair and cast application Triage Date/Time : 10/26/2020 2:32 EDT Peggy Rayo RN - 10/26/2020 2:32 EDT DCP GENERIC CODE Tracking Acuity : 3 - Urgent Tracking Group : [facility] Peggy Rayo RN - 10/26/2020 2:32 EDT Mode of Arrival : Stretcher Transported to ED by : Ambulance/ALS EMS Service : [facility] To Room Via : Stretcher Accompanied By : gas stove servicer helper ED Vital Signs : Document Height & Weight : Document ED Allergies : Document ED Reason for Visit : Document Tetanus Immunization : Unknown Peggy Rayo RN - 10/26/2020 2:32 EDT Infectious Disease History Has the patient ever been tested for COVID-19? : Yes, Patient stated results Negative Date of COVID-19 test known? : Yes Date of COVID-19 Test : 10/21/2020 EDT Does patient have symptoms of COVID-19? : No COVID19 Screening : No Experiencing Infectious Disease Symptoms : No symptoms Physical contact outside [place] in the last 30 days : No Infectious Disease History : None Tuberculosis Symptoms : None Peggy Rayo RN - 10/26/2020 2:32 EDT Vital Signs ED Temperature Source : Oral Temperature Mode : Fahrenheit Temperature, Fahrenheit : 98.2 Deg F Clinical Temperature, C : 36.8 Deg C Oxygen Therapy Mode : Room air Peripheral Pulse Rate : 92 bpm Respiratory Rate : 16 Breaths/Min Systolic Blood Pressure : 114 mmHg Diastolic Blood Pressure : 59 mmHg (LOW) Oxygen Saturation : 96 % Peggy Rayo RN - 10/26/2020 2:32 EDT Allergy (As Of: 10/26/2020 02:36:01 EDT) Allergies (Active) etodolac Estimated Onset Date: Unspecified ; Created By: Peggy Rayo RN; Reaction Status: Active ; Category: Drug ; Substance: etodolac ; Type: Allergy ; Updated By: Peggy Rayo RN; Reviewed Date: 10/26/2020 2:34 EDT Mobic Estimated Onset Date: Unspecified ; Created By: Peggy Rayo RN; Reaction Status: Active ; Category: Drug ; Substance: Mobic ; Type: Allergy ; Updated By: Peggy Rayo RN; Reviewed Date: 10/26/2020 2:34 EDT naproxen Estimated Onset Date: Unspecified ; Created By: Peggy Rayo RN; Reaction Status: Active ; Category: Drug ; Substance: naproxen ; Type: Allergy ; Updated By: Peggy Rayo RN; Reviewed Date: 10/26/2020 2:34 EDT penicillin Estimated Onset Date: Unspecified ; Created By: Peggy Rayo RN; Reaction Status: Active ; Category: Drug ; Substance: penicillin ; Type: Allergy ; Updated By: Peggy Rayo RN; Reviewed Date: 10/26/2020 2:34 EDT sulfa drugs Estimated Onset Date: Unspecified ; Created By: Peggy Rayo RN; Reaction Status: Active ; Category: Drug ; Substance: sulfa drugs ; Type: Allergy ; Updated By: Peggy Rayo RN; Reviewed Date: 10/26/2020 2:34 EDT Diagnosis Control ED (As Of: 10/26/2020 02:36:01 EDT) Diagnoses(Active) Foot injury - Minor Date: 10/26/2020 ; Diagnosis Type: Reason For Visit ; Confirmation: Complaint of ; Clinical Dx: Foot injury - Minor ; Classification: Medical ; Clinical Service: Non-Specified ; Code: PNED ; Probability: 0 ; Diagnosis Code: [id number] Lower leg pain-swelling Date: 10/26/2020 ; Diagnosis Type: Reason For Visit ; Confirmation: Confirmed ; Clinical Dx: Lower leg pain-swelling ; Classification: Medical ; Clinical Service: Emergency medicine ; Code: PNED ; Probability: 0 ; Diagnosis Code: [id number] ED Height and Weight Height Source : Stated Height Entry Format : [place] Height, Feet : 5 ft(Converted to: 152 cm, 60 Inch) Height, Inches : 0 Inch(Converted to: 0 ft 0 Inch, 0.00 cm) Clinical Height : 152.4 cm Weight Source, ED : Critical estimated dosing weight Weight Entry Format : [place] Weight, Pounds : 200 lb Clinical Dosing Weight : 90.91 kg Body Surface Area (BSA) : 1.87 m2 Body Mass Index : 39.1 kg/m2 (HI) Ruffin Body Weight (IBW) : 49.16 kg Peggy Rayo RN - 10/26/2020 2:32 EDT ED Influenza/Pneumoccocal Vaccine Influenza Immunization, Current Season : Yes Previous Vaccines from Immunization Schedule : No qualifying data available. Peggy Rayo RN - 10/26/2020 2:32 EDT documented in this encounter Plan of Treatment Not on file documented as of this encounter Visit Diagnoses Not on filedocumented in this encounter
--- OUTSIDE RECORDS SUMMARY | 2024-08-09 13:20 | XMS_ITS | Encounter Summary ---
Author Organization [employer] Address [address] [place] [address] Care Team Providers Care Material Handling Technician Name Role Phone Unavailable Primary Care Provider Unavailabl e Encounter Details Date Type Department Care Team (Late st Contact Info) Description 09/03/[address] [facility] [place] [facility] [place] [address] ProviderMariela MD [address] [place] [address] Social History Tobacco Use Types [...] Cerner Conversion Note - Historical ProviderMD - 09/03/2020 3:05 PM CDT UM Authorization Entered On: 09/03/2020 15:05 EDT Performed On: 09/03/2020 15:05 EDT by TIESHA AQUINO RN-Utilization Review Primary Insurance Authorization Authorization and Policy Numbers : Insurance 1 Health Plan: [facility] MEDICARE ADVANTAGE Policy Number: [id number] Authorization Number: [id number] Insurance Primary Name : [employer] MEDICARE ADVANTAGE Policy Number: [id number] Authorization Status-Primary : Admit approved Reference Number-Primary : [id number] Authorization Number-Primary : [id number] Number of Days Authorized-Primary : 7 Day(s) Authorized Service Begin Date-Primary : 08/20/2020 EDT Authorized Service End Date-Primary : 08/27/2020 EDT Authorization Comments-Primary : [facility] all days covered per website Historical Authorization Comments-Primary : Comment 1: Uploaded cont stay clinicals (08/22-08/26/20) to [facility] Medicare via Feedtrace. (KARAN WATSON RN-Utilization Review 08/26/2020 10:04) Comment 2: Uploaded cont stay clinicals (08/21/20) to [facility] Medicare via [employer]. (KARAN WATSON RN-Utilization Review 08/21/2020 08:36) Comment 3: Note on [facility] website:Patient was initially scheduled for Right [...] (TIESHA AQUINO RN-Utilization Review 08/19/2020 15:20) Comment 4: [facility] Medicare approved per website for 1 day (TIESHA AQUINO RN-Utilization Review 08/19/2020 15:14) TIESHA AQUINO RN-Utilization Review - 09/03/2020 15:05 EDT documented in this encounter Plan of Treatment Not on file documented as of this encounter Visit Diagnoses Not on filedocumented in this encounter
--- OUTSIDE RECORDS SUMMARY | 2024-08-09 13:20 | XMS_ITS | Encounter Summary ---
Author Organization [employer] Address [address] [place] [address] Care Team Providers Care Manager Hiv Name Role Phone Unavailable Primary Care Provider Unavailabl e Encounter Details Date Type Department Care Team (Late st Contact Info) Description 06/24/2019 Transcribed Document [facility] [place] Family Medicine [address] [place] [address] ProviderMariela MD [address] [place] [id number] Social History Tobacco Use Types Packs/Day Years Used Date Smoking Tobacco: Never Assessed Comments Unknown Sex and Gender Information Value Date Recorded Sex Assigned at Female 09/02/2021 8:57 PM CDT Legal Sex Female 6:58 PM CDT Gender Identity Female 09/02/2021 8:57 PM CDT Sexual Orientation Not on file documented as of this encounter Miscellaneous Notes * Cerner Conversion Note - Historical ProviderMD - 06/24/2019 5:00 PM CDT Chart Check - Review Order Profile Entered On: 06/24/2019 18:49 EDT Performed On: 06/24/2019 17:00 EDT by OZZIE MICHELLE LPN Chart Check Powerplans Initiated/Discontinued as Appropriate : Yes All Active Orders Reviewed : Yes OZZIE MICHELLE LPN - 06/24/2019 18:49 EDT documented in this encounter Plan of Treatment Not on file documented as of this encounter Visit Diagnoses Not on filedocumented in this encounter
--- OUTSIDE RECORDS SUMMARY | 2024-08-09 13:20 | XMS_ITS | Encounter Summary ---
Author Organization [employer] Address [address] [place] [address] Care Team Providers Care Retail Specialist Name Role Phone Unavailable Primary Care Provider Unavailabl e Encounter Details Date Type Department Care Team (Late st Contact Info) Description 07/19/2019 Transcribed Document [facility] [place] Family Medicine [address] [place] [address] ProviderMariela MD [address] [place] [address] Social History Tobacco Use Types [...] Cerner Conversion Note - Historical ProviderMD - 07/19/2019 2:00 AM CDT Seismic Plotter Details Entered On: 07/19/2019 2:02 EDT Performed On: 07/19/2019 2:00 EDT by Kena Ling RN Order Details Transport Mode Order Detail : Stretcher/Gurney Isolation Precautions Order Detail : Standard Precautions Order Detail : N/A IV Order Detail : 0 Oxygen Order Detail : 0 Nurse Collect Order Detail : 1 Lift/Transfer : Moderate assist Central Line Order Detail : Yes Room Service : Appropriate Arterial Line : No Kena Ling RN - 07/19/2019 2:01 EDT documented in this encounter Plan of Treatment Not on file documented as of this encounter Visit Diagnoses Not on filedocumented in this encounter
--- OUTSIDE RECORDS SUMMARY | 2024-08-09 13:20 | XMS_ITS | Encounter Summary ---
Author Organization [employer] Address [address] [place] [address] Care Team Providers Care Valve Repairer Reclamation Name Role Phone Unavailable Primary Care Provider Unavailabl e Encounter Details Date Type Department Care Team (Late st Contact Info) Description 08/28/2020 Transcribed Document [facility] [place] [address] [place] [address] ProviderMariela MD [address] [place], [place] [id number] Social History Tobacco Use Types Packs/Day Years [...] Conversion Note - Historical ProviderMD - 08/28/2020 9:17 AM CDT Stroke/Warfarin Instructions Entered On: 08/28/2020 9:17 EDT Performed On: 08/28/2020 9:17 EDT by Anika Clark RN Stroke/Warfarin Instructions Stroke/TIA Discharge Ins : N/A Warfarin Discharge Ins : N/A Anika Clark RN - 08/28/2020 9:17 EDT documented in this encounter Plan of Treatment Not on file documented as of this encounter Visit Diagnoses Not on filedocumented in this encounter
--- OUTSIDE RECORDS SUMMARY | 2024-08-09 13:20 | XMS_ITS | Encounter Summary ---
Author Organization [employer] Address [address] [place] [address] Care Team Providers Care Power System Dispatcher Name Role Phone Unavailable Primary Care Provider Unavailabl e Encounter Details Date Type Department Care Team (Late st Contact Info) Description 10/26/2020 Transcribed Document [facility] [place] [facility] [place] [address] ProviderMariela MD [address] [place] [address] Social History Tobacco Use Types Packs/Day [...] Conversion Note - Historical ProviderMD - 10/26/2020 10:25 AM CDT Patient: SOFIA GILL Age: 80 years Sex: Female : 1940 Associated Diagnoses: Cast removal; Healed wound Author: CARLY JON MD-EMR Basic Information Time seen: Date & time 10/26/2020 01:45:00, Voice recognition / master control engineer technology used for some documentation in this [...] Arrival mode: Private vehicle. History limitation: None. Additional information: Chief Complaint from Nursing Triage Note : Chief Complaint 10/26/2020 2:32 EDT Chief Complaint Pt arrived via ems w/ c/o Right heel pain / swelling that began 3 weeks ago s/p knee tendon repair and cast application . History of Present Illness Ms. Gill, presents [...] infections, no impaired immunity. Health Status Allergies: Allergic Reactions (Selected) Severity Not Documented Etodolac- No reactions were documented. Mobic- No reactions were documented. Naproxen- No reactions were documented. Penicillin- No reactions were documented. Sulfa drugs- No reactions were documented.. Medications: Per nurse's notes. Immunizations: Up to date. Past Medical/ Family/ Social History Medical history Cardiovascular: hypertension, hyperlipidemia. Respiratory: sleep apnea. Endocrine: hypothyroid. Genitourinary: chronic renal insufficiency. Psychiatric: depression. Musculoskeletal: osteoarthritis. Surgical history: No active procedure history items have been selected or recorded., Reviewed as documented in chart. Family history: No family history items have been selected or recorded., Reviewed as documented in chart. Social history: Social & Psychosocial Habits Alcohol 10/26/2020 Alcohol Use History, Social Habits No Alcohol Use in Last Twelve Months No Substance Abuse 10/26/2020 Recreational Drug Use History No Recreational Drug Use Last 12 Months No Tobacco 10/26/2020 Smoking Status Never (less than 100 in l Smokeless Tobacco Status Never . Problem list: No qualifying data available . Physical Examination Vital Signs Vital Signs/Vital Measures 10/26/2020 6:54 EDT Systolic Blood Pressure 123 mmHg Diastolic Blood Pressure 58 mmHg LOW Mean Arterial Pressure (MAP)-BMDI 84 Heart Rate Monitored 76 bpm Respiratory Rate 16 Breaths/Min Oxygen Saturation 96 % Oxygen Therapy Mode Room air 10/26/2020 5:00 EDT Heart Rate Monitored 85 bpm Respiratory Rate 18 Breaths/Min Oxygen Saturation 91 % LOW Oxygen Therapy Mode Room air 10/26/2020 4:00 EDT Heart Rate Monitored 88 bpm Respiratory Rate 18 Breaths/Min Oxygen Saturation 88 % LOW Oxygen Therapy Mode Room air 10/26/2020 3:00 EDT Heart Rate Monitored 84 bpm Respiratory Rate 18 Breaths/Min Oxygen Saturation 92 % LOW Oxygen Therapy Mode Room air 10/26/2020 2:32 EDT Systolic Blood Pressure 114 mmHg Diastolic Blood Pressure 59 mmHg LOW Temperature Source Oral Temperature Mode Fahrenheit Temperature, Fahrenheit 98.2 Deg F Clinical Temperature, C 36.8 Deg C Peripheral Pulse Rate 92 bpm Respiratory Rate 16 Breaths/Min Oxygen Saturation 96 % Oxygen Therapy Mode Room air . Measurements 10/26/2020 2:32 EDT Height Source Stated Height Entry Format Ceci Height/Length, GREEK (ft) 5 ft Height/Length GREEK 0 Inch CLINICALHEIGHT 152.4 cm Robertson Body Weight 49.16 kg Weight Source, ED Critical estimated dosing weight Weight Entry Format [place] Weight Turkish lb 200 lb CLINICALWEIGHT 90.91 kg Body Surface Area (BSA) 1.87 m2 Body Mass Index 39.1 kg/m2 HI . Oxygen Saturation 10/26/2020 6:54 EDT Oxygen Saturation 96 % 10/26/2020 5:00 EDT Oxygen Saturation 91 % LOW 10/26/2020 4:00 EDT Oxygen Saturation 88 % LOW 10/26/2020 3:00 EDT Oxygen Saturation 92 % LOW 10/26/2020 2:32 EDT Oxygen Saturation 96 % . General: Alert, no acute distress, well nourished, [...] prior records. Orders Include Previous Orders (Selected) . Results review: Reexamination/ Reevaluation Time: 10/26/2020 07:36:00 . Notes: [...] having that done.. Impression and Plan Diagnosis Cast removal - Discharge, Emergency medicine, Medical Healed wound - Discharge, Emergency medicine, Medical Calls-Consults - 10/26/2020 09:00:00 , CAROL CROW MD-ORT, ortho, phone call, recommends Dr. Butts is on-call for [facility]. Discussed case he recommends knee immobilizer and follow-up in Dr. Cota clinic.. Plan Condition: Stable. Disposition: Discharged Admit/Transfer/Discharge: Discharge (Order): Start: 10/26/2020 10:26 EDT, Discharge to: Home. Patient was given the following educational materials: How to Use a Knee Immobilizer, How to Use a Knee Immobilizer. Follow up with: ; Follow up with primary care provider Within 2 to 3 days Call for follow up appointment. Please follow-up with your primary care provider in 2 to 3 days. Return to ED if you experience new or worsening symptoms. If you do not have a primary care provider the patient resource bacon skin lifter can assist you with establishing care and scheduling follow-up. The Patient Resource Dumpster Operator can be contacted at .; ; NIMO EPPS Within 2 to 3 days Call for follow up appointment Follow-up as instructed. Counseled: Patient, Regarding diagnosis, Regarding diagnostic results, Regarding treatment plan, Regarding prescription, Patient indicated understanding of instructions. documented in this encounter Plan of Treatment Not on file documented as of this encounter Visit Diagnoses Not on filedocumented in this encounter
--- OUTSIDE RECORDS SUMMARY | 2024-08-09 13:20 | XMS_ITS | Encounter Summary ---
Author Organization [employer] Address [address] [place] [address] Care Team Providers Care Body And Fender Worker Name Role Phone Unavailable Primary Care Provider Unavailabl e Encounter Details Date Type Department Care Team (Late st Contact Info) Description 07/09/2019 Transcribed Document [facility] [place] Family Medicine [address] [place] [address] ProviderMariela MD [address] [place], [place] [id number] Social History Tobacco Use Types Packs/Day Years Used Date Smoking Tobacco: Never Assessed Comments Unknown Sex and Gender Information Value Date Recorded Sex Assigned at Female 09/02/2021 8:57 PM CDT Legal Sex Female 6:58 PM CDT Gender Identity Female 09/02/2021 8:57 PM CDT Sexual Orientation Not on file documented as of this encounter Miscellaneous Notes * Cerner Conversion Note - Historical ProviderMD - 07/09/2019 5:00 AM CDT Chart Check - Review Order Profile Entered On: 07/09/2019 6:14 EDT Performed On: 07/09/2019 5:00 EDT by GREGOR WOODS RN Chart Check Powerplans Initiated/Discontinued as Appropriate : Yes All Active Orders Reviewed : Yes GREGOR WOODS RN - 07/09/2019 6:14 EDT documented in this encounter Plan of Treatment Not on file documented as of this encounter Visit Diagnoses Not on filedocumented in this encounter
--- OUTSIDE RECORDS SUMMARY | 2024-08-09 13:20 | XMS_ITS | Encounter Summary ---
Author Organization [employer] Address [address] [place] [address] Care Team Providers Care Sprinkler Installer Name Role Phone Unavailable Primary Care Provider Unavailabl e Encounter Details Date Type Department Care Team (Late st Contact Info) Description 07/19/[address] [facility] [place] Family Medicine [facility] [place] [address] ProviderMariela MD [place] [address] Social History Tobacco Use Types [...] Conversion Note - Historical ProviderMD - 07/19/2019 12:34 PM CDT Discharge Summary, PT Entered On: 07/19/2019 12:36 EDT Performed On: 07/19/2019 12:34 EDT by HOWIE WETZEL PTA Discharge Summary Discharge Summary Provider Notified : Nursing, Physical Therapy Reason for Discharge : Discharge order Discharged to, Therapy : Unit, rehabilitation HOWIE WETZEL PTA - 07/19/2019 12:34 EDT Discharge Summary Comment, PT : pt has discharge orders in from hospital to rehab facility, per last PTx - pt min A for bed mobility, pt ambulated 50' with RWx and min A. PT has reviewed and agrees with note. TAN CONNELL, PT - 07/19/2019 14:16 EDT Short Term Goals Mobility/Bed Mobility [facility] PT Grid Goal #1 Activity : Supine to sit Assist : Assist, minimal Equipment : Bed, hospital Date to Meet : 07/11/2019 EDT Goal Status : Goal met Date Met : 06/28/2019 EDT HOWIE WETZEL PTA - 07/19/2019 12:34 EDT Transfer STG Grid Goal #1 Destination : Chair, with arms Type : Other: step-to Assist : Assist, moderate Equipment : Walker, front wheel Date to Meet : 07/11/2019 EDT Goal Status : Goal met Date Met : 06/28/2019 EDT Comment : x 1 HOWIE WETZEL PTA - 07/19/2019 12:34 EDT Ambulation STG Grid Goal #1 Goal #2 Device : Walker, front wheel Walker, front wheel Distance : 25' 100ft Assist : Assist, moderate Supervision or set-up Date to Meet : 07/11/2019 EDT 07/25/2019 EDT Goal Status : Goal met Not met Date Met : 07/05/2019 EDT Comment : x 2 Goal Added 07/07 TDT, reassess 07/10 HOWIE WETZEL PTA - 07/19/2019 12:34 EDT HOWIE WETZEL PTA - 07/19/2019 12:34 EDT Longterm Goals Mobility/Bed Mobility [facility] PT Grid Goal #1 Activity : Supine to sit Assist : Independent, modified Equipment : Bed, hospital Date to Meet : 08/08/2019 EDT Goal Status : Not met Comment : reassess done 07/10 HOWIE WETZEL PTA - 07/19/2019 12:34 EDT Transfer LTG Grid Goal #1 Destination : Chair, with arms Type : Other: step-to Assist : Assist, minimal Equipment : Walker, front wheel Date to Meet : 07/25/2019 EDT Goal Status : Goal met Date Met : 07/02/2019 EDT Comment : x 2 HOWIE WETZEL PTA - 07/19/2019 12:34 EDT Ambulation LTG Grid Goal #1 Goal #2 Device : Walker, front wheel Walker, front wheel Distance : 50' 300ft Assist : Assist, minimal Independent, modified Date to Meet : 07/25/2019 EDT 08/08/2019 EDT Goal Status : Goal met Not met Date Met : 07/07/2019 EDT Comment : x 2 Goal Added 07/07 TDT, reassess done 07/10 HOWIE WETZEL PTA - 07/19/2019 12:34 EDT HOWIE WETZEL PTA - 07/19/2019 12:34 EDT Electronically signed by [facility], [facility] Conversion Pawn Shop Keeper Cerner at 06/16/2022 8:20 PM CDT documented in this encounter Plan of Treatment Not on file documented as of this encounter Visit Diagnoses Not on filedocumented in this encounter
--- OUTSIDE RECORDS SUMMARY | 2024-08-09 13:20 | XMS_ITS | Encounter Summary ---
Author Organization [employer] Address [address] [place] [address] Care Team Providers Care Instrument Worker Name Role Phone Unavailable Primary Care Provider Unavailabl e Encounter Details Date Type Department Care Team (Late st Contact Info) Description 10/26/2020 Transcribed Document [facility] [place] Family Medicine [facility] [place] [address] ProviderMariela MD [address] [place], [place] [id number] Social History Tobacco Use Types Packs/Day Years [...] Conversion Note - Historical ProviderMD - 10/26/2020 2:24 PM CDT ED Event Note Entered On: 10/26/2020 14:25 EDT Performed On: 10/26/2020 14:24 EDT by Nancy Sood RN-PATIENT CARE BEDSIDE NON-EXEMPT ED Event Note ED Event Date/Time : 10/26/2020 14:24 EDT ED Description of Event : [facility] [address] Nancy Sood RN-PATIENT CARE BEDSIDE NON-EXEMPT - 10/26/2020 14:24 EDT documented in this encounter Plan of Treatment Not on file documented as of this encounter Visit Diagnoses Not on filedocumented in this encounter
--- OUTSIDE RECORDS SUMMARY | 2024-08-09 13:20 | XMS_ITS | Encounter Summary ---
Author Organization [employer] Address [address] [place] [address] Care Team Providers Care Manager Urology Name Role Phone Unavailable Primary Care Provider Unavailabl e Encounter Details Date Type Department Care Team (Late st Contact Info) Description 06/24/2019 Transcribed Document [facility] [place] Family Medicine Formerly [facility] [place] [address] ProviderMariela MD [address] [place] [address] Social History Tobacco Use Types [...] Conversion Note - Historical ProviderMD - 06/24/2019 1:51 PM CDT Patient: SOFIA GILL Age: 79 Years Sex: Female : 1940 Assessment/Plan POD #3 s/p Left TKA Revision and I&D for infected joint--Patient's pain is well controlled. Strictly keep knee orthosis on all times. She has complex extensor mechanism repair at high risk for disruption. Continue ABX coverage per ID Will call lenora vogt bracing to see if they can modify brace at ankle as she has developed irritation there. VTE Prophylaxis - Medical Enoxaparin 40 mg, SubCutaneous, Inj, [id number], Start 06/24/19 9:00:00 EDT, Stop 06/25/19 9:00:00 EDT (NIMO EPPS) Warfarin 2 mg, Oral, Tab, Daily, Routine, Start 06/23/19 18:00:00 EDT (NIMO EPPS) Sequential Compression Device Start: 06/21/19 19:25:00 EDT, Bilateral, Length: Knee High, Continuous Order (SOLOMON MCCRACKEN PA-C) Sequential Compression Device Start: 06/16/19 21:25:00 EDT, Bilateral, Length: Knee High, While patient is in bed, Continuous Order (DONNA DRIVER) Subjective Patient's pain well controlled, no complaints. Vital Signs T: 36.8 ??C TMIN: 36.6 ??C TMAX: 36.9 ??C HR: 72(Monitored) RR: 16 BP: 122/44 SpO2: 100% Oxygen Settings (Last) Oxygen Therapy Mode: Nasal cannula (06/24/19 08:00:00) Oxygen Flow Rate: 2 Liter/Min (06/24/19 08:00:00) Intake & Output Totals Last 24 Hours (7a-7a) Input Total: 3150 mL Output Total: 2400 mL Balance: 750 mL Physical Exam Brace, dressing c/d/i. Incision is c/d/i. no drainage. no signs of wound dehiscence ofrinfection Mild knee swelling noted SILT throughout the extremity including 1st and 4th webspace TA,GAS firing wwp distally. Compartments of the leg soft/compressible HKA orthosis is in place. Knee is held in extension. ankle is padded due to irritation from brace in the area. Medications albumin human 25% intravenous solution, 25 Gram= 100 mL, IV Piggyback, Q12H alteplase + sterile water 1 mL Ativan, 0.5 mg= 0.25 mL, IntraMuscular, Q4H, PRN Benadryl, 25 mg= 1 Tab, Oral, Q4H, PRN Benadryl, 12.5 mg= 0.5 Tab, Oral, At Bedtime, PRN calcium gluconate calcium gluconate + Sodium Chloride 0.9% intravenous solution 100 mL calcium gluconate + Sodium Chloride 0.9% intravenous solution 100 mL Caltrate 600 + D, 1 Tab, Oral, BID Chap Stick, 1 Application, Topical, Q1H, PRN Chloraseptic Menthol 1.4% topical spray, 1 [place], Oral, Q2H, PRN cloNIDine, 0.1 mg= 1 Tab, Oral, Q4H, PRN Coenzyme Q10, 50 mg= 1 Cap, Oral, Daily Colace, 100 mg= 1 Cap, Oral, BID Coumadin, 2 mg= 1 Tab, Oral, Daily Crestor, 10 mg= 1 Tab, Oral, At Bedtime cyanocobalamin, 5000 mcg= 5 Tab, Oral, Daily Cymbalta, 60 mg= 1 Cap, Oral, Daily Dulcolax Laxative, 10 mg= 1 Supp, Rectal, BID, PRN DuoNeb 0.5 mg-2.5 mg/3 mL inhalation solution, 3 mL, Nebulized Inhalation , RT_Q6H, PRN Fleet Enema, 133 mL, Rectal, 1-Time, PRN Florastor, 250 mg= 1 Cap, Oral, Daily fluticasone 50 mcg/inh nasal spray, 2 [place], Nostrils Both, BID, PRN gabapentin, 300 mg= 1 Cap, Oral, At Bedtime lisinopril, 10 mg= 1 Tab, Oral, Daily loratadine, 10 mg= 1 Tab, Oral, Daily Lovenox, 40 mg= 0.4 mL, SubCutaneous, [id number] magnesium sulfate, 2 Gram= 50 mL, IV Piggyback, Daily, PRN magnesium sulfate, 2 Gram= 50 mL, IV Piggyback, Q2H, PRN metoclopramide, 5 mg= 1 mL, IV Push, Q4H, PRN Milk of Magnesia 8% oral suspension, 30 mL, Oral, Daily, PRN MiraLax, 17 Gram= 1 Packet, Oral, Daily multivitamin, 1 Tab, Oral, Daily naloxone, 0.1 mg= 0.25 mL, IV Push, Q5Min, PRN Normal Saline 1,000 mL, 1000 mL, IntraVENous Normal Saline Flush, 10 mL, IntraCATHeter, Q12H Nucynta, 100 mg= 2 Tab, Oral, Q6H, PRN Percocet 5/325, 1.5 Tab, Oral, Q4H, PRN potassium chloride 10 mEq/50 mL intravenous solution, 10 mEq= 100 mL, IV Piggyback, Q1H, PRN potassium chloride 20 mEq oral tablet, extended release, 20 mEq= 1 Tab, Oral, Q2H, PRN potassium chloride 20 mEq oral tablet, extended release, 60 mEq= 3 Tab, Oral, Q2H, PRN Protonix, 40 mg= 1 Tab, Oral, Daily Rocephin + Sodium Chloride 0.9% intravenous solution 50 mL senna, 8.6 mg= 1 Tab, Oral, At Bedtime, PRN Senokot S, 2 Tab, Oral, At Bedtime sodium phosphate sodium phosphate Synthroid, 100 mcg= 1 Tab, Oral, Daily Transderm-Scop 1.5 mg transdermal film, extended release, 1 Patch, TransDermal, Q3Days, PRN traZODone, 50 mg= 1 Tab, Oral, At Bedtime, PRN Tylenol, 650 mg= 2 Tab, Oral, Q4H, PRN Tylenol, 1000 mg= 2 Tab, Oral, TID Xanax, 0.25 mg= 1 Tab, Oral, Q6H, PRN Zofran, 4 mg= 2 mL, IV Push, Q8H, PRN Lab Results Test Name Test Result Date/Time Sodium Level 139 mmol/L 06/24/2019 03:39 EDT Potassium Level 4.5 mmol/L 06/24/2019 03:39 EDT Chloride Level 109 mmol/L 06/24/2019 03:39 EDT Carbon Dioxide Level 24 mmol/L 06/24/2019 03:39 EDT Anion Gap 10 06/24/2019 03:39 EDT Glucose Level 104 mg/dL 06/24/2019 03:39 EDT Blood Urea Nitrogen 16 mg/dL 06/24/2019 03:39 EDT Creatinine Level 0.63 mg/dL 06/24/2019 03:39 EDT eGFR >60 mL/min/1.73m2 06/24/2019 03:39 EDT eGFR NonAfrican >60 mL/min/1.73m2 06/24/2019 03:39 EDT Bun/Creatinine 25.4 (High) 06/24/2019 03:39 EDT Calcium Level 7.0 mg/dL (Low) 06/24/2019 03:39 EDT Protein Total 4.6 Gram/dL (Low) 06/24/2019 03:39 EDT Albumin Level 1.5 Gram/dL (Low) 06/24/2019 03:39 EDT Globulin 3.1 Gram/dL 06/24/2019 03:39 EDT A/G Ratio 0.5 (Low) 06/24/2019 03:39 EDT Bilirubin Total 0.2 mg/dL 06/24/2019 03:39 EDT Alk Phos 77 Units/Liter 06/24/2019 03:39 EDT AST 16 Units/Liter 06/24/2019 03:39 EDT ALT 16 Units/Liter 06/24/2019 03:39 EDT Magnesium Level 2.2 mg/dL 06/24/2019 03:39 EDT Phosphorus 2.5 mg/dL 06/24/2019 03:39 EDT WBC 15.9 K/uL (High) 06/24/2019 03:39 EDT RBC 2.92 Million/uL (Low) 06/24/2019 03:39 EDT Hgb 9.0 Gram/dL (Low) 06/24/2019 03:39 EDT Hct 28.6 % (Low) 06/24/2019 03:39 EDT MCV 97.9 fL (High) 06/24/2019 03:39 EDT MCH 30.8 pg 06/24/2019 03:39 EDT MCHC 31.5 Gram/dL (Low) 06/24/2019 03:39 EDT Platelet Count 413 K/uL (High) 06/24/2019 03:39 EDT MPV 8.9 fL (Low) 06/24/2019 03:39 EDT RDW 14.0 % 06/24/2019 03:39 EDT Neut % 60.7 % 06/24/2019 03:39 EDT Neut # 9.64 K/uL (High) 06/24/2019 03:39 EDT Lymph % 19.4 % 06/24/2019 03:39 EDT Lymph # 3.08 K/uL 06/24/2019 03:39 EDT [place] % 7.4 % 06/24/2019 03:39 EDT [place] # 1.17 K/uL (High) 06/24/2019 03:39 EDT Eos % 2.9 % 06/24/2019 03:39 EDT Eos # 0.46 K/uL 06/24/2019 03:39 EDT Baso % 0.6 % 06/24/2019 03:39 EDT Baso # 0.09 K/uL (High) 06/24/2019 03:39 EDT Slide Review No 06/24/2019 03:39 EDT IG# 1 x10(3)/uL (High) 06/24/2019 03:39 EDT IG% 9 % (High) 06/24/2019 03:39 EDT PT 11.4 Second(s) 06/24/2019 03:39 EDT PT 11.5 Second(s) 06/23/2019 14:00 EDT INR 1.1 06/24/2019 03:39 EDT INR 1.1 06/23/2019 14:00 EDT Electronically signed by [facility] Conversion Car Repairer Cerner at 06/16/2022 8:24 PM CDT documented in this encounter Plan of Treatment Not on file documented as of this encounter Visit Diagnoses Not on filedocumented in this encounter
--- OUTSIDE RECORDS SUMMARY | 2024-08-09 13:20 | XMS_ITS | Encounter Summary ---
Author Organization [employer] Address [address] [place] [address] Care Team Providers Care Front Desk Worker Name Role Phone Unavailable Primary Care Provider Unavailabl e Encounter Details Date Type Department Care Team (Late st Contact Info) Description 07/08/2019 Transcribed Document [facility] [place] Family Medicine [address] [place] [address] ProviderMariela MD [address] [place], [place] [id number] Social History Tobacco Use Types Packs/Day Years Used Date Smoking Tobacco: Never Assessed Comments Unknown Sex and Gender Information Value Date Recorded Sex Assigned at Female 09/02/2021 8:57 PM CDT Legal Sex Female 6:58 PM CDT Gender Identity Female 09/02/2021 8:57 PM CDT Sexual Orientation Not on file documented as of this encounter Miscellaneous Notes * Cerner Conversion Note - Historical ProviderMD - 07/08/2019 5:00 PM CDT Chart Check - Review Order Profile Entered On: 07/08/2019 16:31 EDT Performed On: 07/08/2019 17:00 EDT by TOR ADAMES, RN Chart Check Powerplans Initiated/Discontinued as Appropriate : Yes All Active Orders Reviewed : Yes TOR ADAMES, RN - 07/08/2019 16:31 EDT documented in this encounter Plan of Treatment Not on file documented as of this encounter Visit Diagnoses Not on filedocumented in this encounter
--- OUTSIDE RECORDS SUMMARY | 2024-08-09 13:20 | XMS_ITS | Encounter Summary ---
Author Organization [employer] Address [address] [place] [address] Care Team Providers Care Peanut Cleaner Name Role Phone Unavailable Primary Care Provider Unavailabl e Encounter Details Date Type Department Care Team (Late st Contact Info) Description 08/23/2020 Transcribed Document [facility] [place] Family Medicine [address] [place] [address] ProviderMariela MD [address] [place], [place] [id number] Social History Tobacco Use Types Packs/Day Years [...] Conversion Note - Historical ProviderMD - 08/23/2020 10:00 PM CDT Pain Assessment Entered On: 08/23/2020 23:36 EDT Performed On: 08/23/2020 22:14 EDT by Rayna Carrizales Rn Intervention Information: traMADol Performed by Rayna Carrizales Rn on 08/23/2020 21:14:00 EDT traMADol,50mg Oral Pain Assessment Pain Assessment : Follow-up assessment Pain Scale Goal : 3 Pain Scale Used : 0-10 Scale Pain Improved by Intervention : Yes Rayna Carrizales Rn - 08/23/2020 23:35 EDT documented in this encounter Plan of Treatment Not on file documented as of this encounter Visit Diagnoses Not on filedocumented in this encounter
--- OUTSIDE RECORDS SUMMARY | 2024-08-09 13:20 | XMS_ITS | Encounter Summary ---
Author Organization [employer] Address [address] [place] [address] Care Team Providers Care Associate Research Scientist Name Role Phone Unavailable Primary Care Provider Unavailabl e Encounter Details Date Type Department Care Team (Late st Contact Info) Description 06/24/2019 Transcribed Document [facility] [place] [facility] [place] [address] ProviderMariela MD [facility] [address] Social History Tobacco Use Types [...] Conversion Note - Historical ProviderMD - 06/24/2019 9:00 AM CDT Pain Assessment Entered On: 06/24/2019 18:50 EDT Performed On: 06/24/2019 10:56 EDT by OZZIE MICHELLE LPN Intervention Information: acetaminophen Performed by OZZIE MICHELLE LPN on 06/24/2019 09:56:00 EDT acetaminophen,1000mg Oral Pain Assessment Pain Assessment : Follow-up assessment Pain Scale Goal : 3 Pain Scale Used : 0-10 Scale OZZIE MICHELLE LPN - 06/24/2019 18:50 EDT Pain Scale Intensity : 3 OZZIE MICHELLE LPN - 06/24/2019 18:50 EDT Image 4 - Images currently included in the form version of this document have not been included in the text rendition version of the form. documented in this encounter Plan of Treatment Not on file documented as of this encounter Visit Diagnoses Not on filedocumented in this encounter
--- OUTSIDE RECORDS SUMMARY | 2024-08-09 13:20 | XMS_ITS | Encounter Summary ---
Author Organization [employer] Address [address] [place] [address] Care Team Providers Care Barrel Plater Name Role Phone Unavailable Primary Care Provider Unavailabl e Encounter Details Date Type Department Care Team (Late st Contact Info) Description 08/28/2020 Transcribed Document [facility] [place] Family Medicine [facility] [place] [address] ProviderMariela MD [address] [place], [place] [id number] Social History Tobacco Use Types Packs/Day Years [...] Conversion Note - Historical ProviderMD - 08/28/2020 2:00 AM CDT Ekg Technician Details Entered On: 08/28/2020 2:20 EDT Performed On: 08/28/2020 2:00 EDT by Jessica Ovalle Lpn Order [...] Crushed/Liquid : No Jessica Ovalle Lpn - 08/28/2020 2:19 EDT documented in this encounter Plan of Treatment Not on file documented as of this encounter Visit Diagnoses Not on filedocumented in this encounter
--- OUTSIDE RECORDS SUMMARY | 2024-08-09 13:20 | XMS_ITS | Encounter Summary ---
Author Organization [employer] Address [address] [place] [address] Care Team Providers Care Blast Furnace Auxiliaries Supervisor Name Role Phone Unavailable Primary Care Provider Unavailabl e Encounter Details Date Type Department Care Team (Late st Contact Info) Description 07/19/2019 Transcribed Document [facility] [place] [facility] [place] [address] ProviderMariela MD [address] [place] [address] Social History Tobacco Use Types Packs/Day [...] Conversion Note - Historical ProviderMD - 07/19/2019 11:43 AM CDT CareSet Assessment Discharge, [facility] Entered On: 07/19/2019 14:37 EDT Performed On: 07/19/2019 11:43 EDT by Marisela Rangel RN CareSet Discharge Assessment Persistent Veg State/No Consciousness : No Expression of Ideas and Wants : Expresses complex messages without difficulty and with clear easy to understand speech Understanding of Verbal Content : Understands Ac Change in Mental Status from Baseline : No ABN Behavior Fluctuates During the Day : No Recommend Continued Therapy at Discharge : No Disorganized or Incoherent Thinking : No Level of Consciousness is Alert (Normal) : Yes LOC Vigilant, Lethargic, Stupor or Coma : No Bladder Continence : Always continent Eating Ability : Independent Oral Hygiene : Independent Toileting Hygiene : Independent Ability to Wash Upper Body : Independent Roll Left and Right : Independent Ability to Transfer from Sit to Lying : Independent Able Trans from Lying to Sit/Side of Bed : Independent Ability to Transfer from Sit to Stand : Partial/Moderate assistance Able to Transfer from Chair/Bed to Chair : Partial/Moderate assistance Ability to Toilet Transfer : Partial/Moderate assistance Able to Walk : Yes Ability to Walk 10 Feet : Partial/Moderate assistance Ability to Walk 50 Feet : Partial/Moderate assistance Ability to Walk 150 Feet : Not applicable Uses a Wheelchair/Scooter : No Marisela Rangel RN - 07/19/2019 14:35 EDT Electronically signed by Maureen Cornejo Conversion Vp [employer] Cerner at 06/16/2022 8:15 PM CDT documented in this encounter Plan of Treatment Not on file documented as of this encounter Visit Diagnoses Not on filedocumented in this encounter
--- OUTSIDE RECORDS SUMMARY | 2024-08-09 13:21 | XMS_ITS | Encounter Summary ---
Author Organization [employer] Address [address] [place] [address] Care Team Providers Care Senior Java Web Application Developer Name Role Phone Unavailable Primary Care Provider Unavailabl e Encounter Details Date Type Department Care Team (Late st Contact Info) Description 06/22/2019 Transcribed Document [facility] [place] Medicine [facility] [place] [address] ProviderMariela MD [address] [place] [address] Social History Tobacco Use Types Packs/Day [...] Cerner Conversion Note - Historical ProviderMD - 06/22/2019 9:00 AM CDT Pain Assessment Entered On: 06/22/2019 14:46 EDT Performed On: 06/22/2019 10:03 EDT by Moni George Rn Intervention Information: acetaminophen Performed by Moni George Rn on 06/22/2019 09:03:00 EDT acetaminophen,1000mg Oral Pain Assessment Pain Assessment : Follow-up assessment Pain Scale Goal : 3 Pain Scale Used : 0-10 Scale Moni George Rn - 06/22/2019 14:46 EDT Pain Scale Intensity : 3 Moni George Rn - 06/22/2019 14:46 EDT Image 4 - Images currently included in the form version of this document have not been included in the text rendition version of the form. documented in this encounter Plan of Treatment Not on file documented as of this encounter Visit Diagnoses Not on filedocumented in this encounter
--- OUTSIDE RECORDS SUMMARY | 2024-08-09 13:21 | XMS_ITS | Encounter Summary ---
Author Organization [employer] Address [address] [place] [address] Care Team Providers Care Blood Bank Laboratory Professional Name Role Phone Unavailable Primary Care Provider Unavailabl e Encounter Details Date Type Department Care Team (Late st Contact Info) Description 06/25/2019 Transcribed Document [facility] [place] [facility] [place] [address] ProviderMariela MD [facility] [place] [address] Social History Tobacco Use Types [...] Cerner Conversion Note - Historical ProviderMD - 06/25/2019 9:00 PM CDT Pain Assessment Entered On: 06/26/2019 0:45 EDT Performed On: 06/25/2019 22:46 EDT by Elizabeth King RN Intervention Information: acetaminophen Performed by Elizabeth King RN on 06/25/2019 21:46:00 EDT acetaminophen,1000mg Oral Pain Assessment Pain Assessment : Follow-up assessment Pain Scale Goal : 3 Pain Scale Used : 0-10 Scale Elizabeth King RN - 06/26/2019 0:45 EDT Pain Scale Intensity : Non pain medication administration Elizabeth King RN - 06/26/2019 0:45 EDT Image 4 - Images currently included in the form version of this document have not been included in the text rendition version of the form. documented in this encounter Plan of Treatment Not on file documented as of this encounter Visit Diagnoses Not on filedocumented in this encounter
--- OUTSIDE RECORDS SUMMARY | 2024-08-09 13:21 | XMS_ITS | Encounter Summary ---
Author Organization [employer] Address [address] [place] [address] Care Team Providers Care Header Boss Name Role Phone Unavailable Primary Care Provider Unavailabl e Encounter Details Date Type Department Care Team (Late st Contact Info) Description 08/23/2020 Transcribed Document [facility] [place] Family Medicine [address] [place] [address] ProviderMariela MD [address] [place], [place] [id number] Social History Tobacco Use Types Packs/Day Years [...] Conversion Note - Historical ProviderMD - 08/23/2020 5:00 AM CDT Chart Check - Review Order Profile Entered On: 08/23/2020 5:07 EDT Performed On: 08/23/2020 5:00 EDT by Caitlyn Fallon Rn Chart Check Powerplans Initiated/Discontinued as Appropriate : Yes All Active Orders Reviewed : Yes Caitlyn Fallon Rn - 08/23/2020 5:07 EDT documented in this encounter Plan of Treatment Not on file documented as of this encounter Visit Diagnoses Not on filedocumented in this encounter
--- OUTSIDE RECORDS SUMMARY | 2024-08-09 13:21 | XMS_ITS | Encounter Summary ---
Author Organization [employer] Address [address] [place] [address] Care Team Providers Care Cyber Forensics Analyst Name Role Phone Unavailable Primary Care Provider Unavailabl e Encounter Details Date Type Department Care Team (Late st Contact Info) Description 06/26/2019 Transcribed Document [facility] [place] [facility] [place] [address] ProviderMariela MD [address] [place] [address] Social History Tobacco Use Types Packs/Day [...] Cerner Conversion Note - Historical ProviderMD - 06/26/2019 8:18 PM CDT Pain Assessment Entered On: 06/30/2019 10:44 EDT Performed On: 06/30/2019 9:43 EDT by Marisela Rangel RN Intervention Information: acetaminophen-oxyCODONE Performed by Marisela Rangel RN on 06/30/2019 08:43:00 EDT acetaminophen-oxyCODONE,1.5Tab Oral,Pain (Moderate 4-6) Pain Assessment Pain Assessment : Follow-up assessment Pain Scale Used : 0-10 Scale Pain Improved by Intervention : Yes Marisela Rangel RN - 06/30/2019 10:44 EDT Pain Scale Intensity : 3 Marisela Rangel RN - 06/30/2019 10:44 EDT Image 4 - Images currently included in the form version of this document have not been included in the text rendition version of the form. Electronically signed by Chantal, [facility] Conversion Ag Equipment Field Service Technician Cerner at 06/16/2022 8:30 PM CDT documented in this encounter Plan of Treatment Not on file documented as of this encounter Visit Diagnoses Not on filedocumented in this encounter
--- OUTSIDE RECORDS SUMMARY | 2024-08-09 13:21 | XMS_ITS | Encounter Summary ---
Author Organization [employer] Address [address] [place] [address] Care Team Providers Care Judicial Administrative Assistant Name Role Phone Unavailable Primary Care Provider Unavailabl e Encounter Details Date Type Department Care Team (Late st Contact Info) Description 07/09/2019 Transcribed Document [facility] Family Medicine [facility] [place] [address] ProviderMariela MD [facility] [place] [address] Social History Tobacco Use Types [...] Cerner Conversion Note - Mariela ProviderMD - 07/09/2019 2:43 PM CDT Patient: SOFIA BARLOW Age: 79 [...] DRIVER MD-INT Basic Information awake alert comfortable, pain under control, no trouble w. urination. ???Slow progressive improvement ???High fall risk ???Unsteady ???Left knee pain while bearing weight on her left lower extremity ???Has anemia ???We'll check anemia study in a.m. Review of Systems Constitutional: No fever, No [...] reaction sulfa drugs Itching Current medications: Medications (44) Active Scheduled: (19) aspirin 81 mg chew tab 81 mg 1 Tab, Oral, Daily calcium 500 mg/vit D 200 int unit tab 1 Tab, Oral, BID cefTRIAXone + NaCl 0.9% 50 mL 2 Gram, IV Piggyback, [id number] cyanocobalamin 1,000 mcg tab 5,000 mcg 5 [...] Oral, Q4H fluticasone 0.05% nasal spray 2 Panther Burn, Nostrils Both, BID magnesium hydroxide 8% liq [...] Lymphatics: No lymphadenopathy neck, axilla, groin. Musculoskeletal: Left lower extremity in a brace. Integumentary: Warm, Intact, No rash, WOUND STABLE. [...] renal function, blood glucose, and urine output. Continue on IV antibiotics as recommended by infectious disease. Pain control. DVT prophylaxis. Close monitoring fluid and electrolytes. Fall risk precautions. Anemia study in a.m.. Orders Order Profile (Selected) Inpatient Orders Ordered (Scheduled) CBC w/ Auto Diff: Specimen Type: Blood, AM Draw collect, 07/10/19 4:00:00 EDT, 1-Time, Stop: 07/10/19 4:00:00 EDT, Nurse Collect CMP Comprehensive Metabolic Panel: Specimen Type: Blood, AM Draw collect, 07/10/19 4:00:00 EDT, 1-Time, Stop: 07/10/19 4:00:00 EDT, Nurse Collect CRP C-Reactive Protein: Specimen Type: Blood, AM Draw collect, 07/10/19 4:00:00 EDT, 1-Time, Stop: 07/10/19 4:00:00 EDT, Nurse Collect ESR Sedimentation Rate Auto: Specimen Type: Blood, AM Draw collect, 07/10/19 4:00:00 EDT, 1-Time, Stop: 07/10/19 4:00:00 EDT, Nurse Collect Ferritin Level: Specimen Type: Blood, AM Draw collect, 07/10/19 4:00:00 EDT, 1-Time, Stop: 07/10/19 4:00:00 EDT, Nurse Collect Folate Level: Specimen Type: Blood, AM Draw collect, 07/10/19 4:00:00 EDT, 1-Time, Stop: 07/10/19 4:00:00 EDT, Nurse Collect Iron Total TIBC: Specimen Type: Blood, AM Draw collect, 07/10/19 4:00:00 EDT, 1-Time, Stop: 07/10/19 4:00:00 EDT, Nurse Collect Prealbumin: Specimen Type: Blood, AM Draw collect, 07/10/19 4:00:00 EDT, 1-Time, Stop: 07/10/19 4:00:00 EDT, Nurse Collect Vitamin B12 Level: Specimen Type: Blood, AM Draw collect, 07/10/19 4:00:00 EDT, 1-Time, Stop: 07/10/19 4:00:00 EDT, Nurse Collect. Electronically signed by Maureen Cornejo Conversion Supervisor Garment Manufacturing Cerner at 06/16/2022 8:28 PM CDT documented in this encounter Plan of Treatment Not on file documented as of this encounter Visit Diagnoses Not on filedocumented in this encounter
--- OUTSIDE RECORDS SUMMARY | 2024-08-09 13:21 | XMS_ITS | Encounter Summary ---
Author Organization [employer] Address [address] [place] [address] Care Team Providers Care Hoseman Name Role Phone Unavailable Primary Care Provider Unavailabl e Encounter Details Date Type Department Care Team (Late st Contact Info) Description 06/22/2019 Transcribed Document [facility] [place] [address] [place] [address] ProviderMariela MD [address], [place] [id number] Social History Tobacco Use Types Packs/Day Years [...] Conversion Note - Historical ProviderMD - 06/22/2019 5:00 AM CDT Chart Check - Review Order Profile Entered On: 06/22/2019 3:55 EDT Performed On: 06/22/2019 5:00 EDT by Reid Ramon Rn-Charge Chart Check Powerplans Initiated/Discontinued as Appropriate : Yes All Active Orders Reviewed : Yes Reid Ramon Rn-Charge - 06/22/2019 3:55 EDT documented in this encounter Plan of Treatment Not on file documented as of this encounter Visit Diagnoses Not on filedocumented in this encounter
--- OUTSIDE RECORDS SUMMARY | 2024-08-09 13:21 | XMS_ITS | Encounter Summary ---
Author Organization [employer] Address [address] [place] [address] Care Team Providers Care Dining Room Attendant Cafeteria Name Role Phone Unavailable Primary Care Provider Unavailabl e Encounter Details Date Type Department Care Team (Late st Contact Info) Description 08/23/2020 Transcribed Document [facility] [place] [facility] [place] [address] ProviderMariela MD [address] [place] [address] Social History Tobacco Use Types Packs/Day [...] Conversion Note - Historical ProviderMD - 08/23/2020 2:59 PM CDT On Going Discharge Planning Entered On: 08/23/2020 15:00 EDT Performed On: 08/23/2020 14:59 EDT by ADALBERTO BEE, EDDIE Care Management Progress Note Discharge Arrangements : Patient Post-Acute Information Patient Name: SOFIA GILL Gender: Female : 44 Age: 80 Years [place] Referral(s): Service: Organization: Business Address: Phone Number: Quote Clerk [facility] [address], [place], [address] Discharge Options Discussed with Patient : Discharge transportation, DME, residential rehabilitation Barriers to Discharge Identified : Clinical Condition of Patient Barriers to Discharge Unresolved : Clinical Condition of Patient Designation of Choice Signed : No Patient Offered Choice/Affiliations Explained : Yes List/Info Provided Pt/Fam/Support Person : Durable medical equipment, correction facilities Were Referrals Sent to Post Acute Providers : Yes Does the Patient have a Floor to SNF Benefit? : No Is the Patient Meeting Medical Necessity : Yes Physician Agreeable to Move Forward with D/C Plan? : Yes Did you Attend Multidisciplinary Rounds? : Yes ADALBERTO BEE RN - 08/23/2020 14:59 EDT Narrative Progress Note Narrative Progress Note : Per MDR's patient not ready to be discharged yet. Pending preautorization at [facility]. Called and spoke with Richard and he states the preauth hadnt came back just yet. CM will continue to monitor. Historical Progress Note : 80 y/o female s/p RIGHT patello tendon repair. ORIf per Dr. Saenz. met with patient at bedside to discuss discharge needs and verify demographics. RRS:Low 26 boost:4 STATUS: patient lives alone. Her family helps them when they can. she needs assistance for adls. PLAN: patient wants to go to Rehab and choose [facility] or [facility]. Referral faxed via Mike and brooke notified. 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 DME: patient has a wc, showerchair and a walker at home. CM: jevon jon will continue to follow patient TRANS: will need an [facility] to transport patient there. ADALBERTO BEE RN - 08/21/20 14:06:04 ADALBERTO BEE RN - 08/23/2020 14:59 EDT documented in this encounter Plan of Treatment Not on file documented as of this encounter Visit Diagnoses Not on filedocumented in this encounter
--- OUTSIDE RECORDS SUMMARY | 2024-08-09 13:21 | XMS_ITS | Encounter Summary ---
Author Organization [employer] Address [address] [place] [address] Care Team Providers Care Framing And Hanging Name Role Phone Unavailable Primary Care Provider Unavailabl e Encounter Details Date Type Department Care Team (Late st Contact Info) Description 06/26/2019 Transcribed Document [facility] [place] [facility] [place] [address] ProviderMariela MD [facility] [place] [address] Social History Tobacco [...] Conversion Note - Historical ProviderMD - 06/26/2019 8:17 PM CDT Evaluation, Occupational Therapy Entered On: 06/27/2019 12:06 EDT Performed On: 06/27/2019 9:52 EDT by PATTY OWENS OTR/L General Information, OT Patient Orders : Order Date Order Ordering 06/26/2019 20:17 OT Evaluation and Treatment Ordered By: DONNA DRIVER MD-INT Active Diagnoses : No Qualifying Diagnoses Admission Date : 06/26/2019 18:33 Personal Devices : Personal Devices Glasses Assistive Devices : Assistive Devices No Devices Recorded PATTY OWENS OTR/Bartolo - 06/27/2019 13:35 EDT Therapy Diagnosis, OT : 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 Brace at all times: hip to ankle R LE. Onset of Problem, OT : 06/27/2019 EDT Co-treated by, OT : Physical Therapist PATTY OWENS OTR/L - 06/27/2019 12:14 EDT General Information Comment, OT : [place] [facility] [facility]. 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 Brace at all times. WBAT. PATTY OWENS OTR/L - 06/27/2019 12:31 EDT Visit Type, OT : Initial evaluation Isolation Maintained : Contact PATTY OWENS OTR/L - 06/27/2019 12:06 EDT General Status Patient Received Status : Supine in bed Treatment Start Time : 06/27/2019 9:14 EDT Patient Left Status : Up in chair, RN/PCT informed, All needs met and within reach RN/PCT Informed Comment : EDDIE briones Treatment End Time : 06/27/2019 9:52 EDT Treatment Time : 38 Minute(s) PATTY OWENS OTR/L 06/27/2019 12:14 EDT History and Environment, OT Living Situation, Therapy : Home Patient Lives With : Alone Persons Assisting Patient at Home : Alone Professional Skilled Services : None Persons Providing Information : Patient Home Equipment, Therapy : Other: RW, shower chair, w/c, cane, Rollator Home Setup : Two story Bedroom Location : Downstairs Bathroom #1 Location : Downstairs Stairs : Yes Stair Location(s) : Inside Inside Stairs, Number of Steps : 12 Stairs Inside Comment : Patient does not go upstairs Ramp : Yes PATTY OWENS OTR/Bartolo - 06/27/2019 13:35 EDT Prior LOF Bathing, OT : Independent Prior LOF Bed Mobility : Independent Prior LOF Upper Body Dressing, OT : Independent Prior LOF Lower Body Dressing, OT : Independent Prior LOF Toileting : Independent Prior LOF Transfer : Independent Prior LOF Grooming, OT : Independent Prior LOF for IADLs, OT : Independent PATTY OWENS OTR/Bartolo - 06/27/2019 13:35 EDT Prior LOF for IADLs, OT : Pt states Pike prior. Lives alone. Ramp into home. Does not go upstairs. PATTY OWENS OTR/Bartolo - 06/27/2019 13:35 EDT Upper Extremity Right UE Active ROM : Impaired Left UE Active ROM : Impaired Upper Extremity Strength Impaired : Yes Right UE Strength Comment : Pt impaired bilat UE ROM. 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 PATTY OWENS OTR/Bartolo 06/27/2019 13:35 EDT Self Care/Home Management, OT Self Feeding Assist Level, OT : Supervision or set-up Grooming Assist Level, OT : Supervision or set-up Bathing Assist Level, OT : Assist, moderate Upper Body Dressing Assist Level, OT : Assist, minimal Lower Body Dressing Assist Level, OT : Assist, maximal Toileting Assist Level : Assist, maximal Toilet Transfer Assist Level : Assist, minimal Toilet Transfer Device Comment : 2 person assist. PATTY OWENS OTR/Bartolo 06/27/2019 13:35 EDT Functional Mobility Mobility Grid Supine to Sit : Rehab Moderate assistance Sit to Stand : Rehab Moderate assistance Bed to Chair : Rehab Minimal assistance (Comment: 2 person assist [PATTY OWENS OTR/Bartolo 06/27/2019 13:35 EDT] ) Stand to Sit : Rehab Minimal assistance PATTY OWENS OTR/Bartolo 06/27/2019 13:35 EDT Cognition Assessment, OT Orientation : Oriented x 4 Cognition Assessment, OT : Intact PATTY OWENS OTR/Bartolo 06/27/2019 13:35 EDT Indication Assessment, OT Occupational Therapy Indicated : Yes Interdisciplinary Consultation(s) Needed : Yes Interdisciplinary Consult, OT : Physical Therapy Problem List, OT : Impaired, bed mobility, Impaired, activities daily living, Impaired, endurance tolerance, Impaired functional mobility, Impaired, standing balance, Impaired, strength, Impaired, transfers Potential Barriers, OT : None evident Rehabilitation Potential, OT : Good PATTY OWENS OTR/Bartolo - 06/27/2019 13:35 EDT Plan of Care, OT OT Tx Plan/Goals Established w Patient : Yes PATTY OWENS OTR/L 06/27/2019 12:24 EDT Counter Stitcher Goals, OT Bathing LTG Grid Goal #1 Activity : Bathing Assist : Assist, moderate Date to Meet : 07/11/2019 EDT Goal Status : Initial goal PATTY OWENS OTR/L - 06/27/2019 12:24 EDT Dressing, Lower Body LTG Grid Goal #1 Activity : Dressing, Lower Body Assist : Assist, moderate Date to Meet : 07/11/2019 EDT Goal Status : Initial goal PATTY OWENS OTR/Bartolo - 06/27/2019 12:24 EDT Toilet Transfer LTG Grid Goal #1 Activity : Toilet Transfer, Stand Pivot Sit Assist : Assist, minimal Date to Meet : 07/11/2019 EDT Goal Status : Initial goal PATTY OWENS OTR/L - 06/27/2019 12:24 EDT Bed Mobility/ Bed Transfer LTG Grid Goal #1 Activity : Bed Mobility/Bed Transfer Assist : Independent, modified Date to Meet : 07/11/2019 EDT Goal Status : Initial goal PATTY OWENS OTR/Bartolo - 06/27/2019 12:24 EDT Treatment Note Subjective Comment : Agreeable. Brace at all times L hip to ankle. WBAT. Patient's Response to Treatment : Pt responding well. Participating well. Motivated. Additional Objective Information : Pt came to EOB with ModA. Brace makes sitting difficult. Pt stood with Isaak, but assist x2. Pt transferring to chair. Plan for Treatment : See LTGS. PATTY OWENS OTR/Bartolo - 06/27/2019 13:35 EDT Assessment : Pt will benefit from skilled OT during this hospital stay. PATTY OWENS OTR/Bartolo - 06/27/2019 12:24 EDT Pain Assessment Pain Scaled Used : 0-10 Pain scale Pain Score Post-Intervention. : 0 PATTY OWENS OTR/Bartolo - 06/27/2019 13:35 EDT Image 1 - Images currently included in the form version of this document have not been included in the text rendition version of the form. Anticipated Discharge Needs, OT/PT Anticipated Discharge to : Unit, rehabilitation PATTY OWENS OTR/Bartolo - 06/27/2019 13:35 EDT [place] OT Charges OT Ther Activities Ea 15 Min : 2 OT Eval Moderate Complexity : 1 PATTY OWENS OTR/L - 06/27/2019 12:14 EDT documented in this encounter Plan of Treatment Not on file documented as of this encounter Visit Diagnoses Not on filedocumented in this encounter
--- OUTSIDE RECORDS SUMMARY | 2024-08-09 13:21 | XMS_ITS | Encounter Summary ---
Author Organization [employer] Address [address] [place] [address] Care Team Providers Care Arcade Game Technician Name Role Phone Unavailable Primary Care Provider Unavailabl e Encounter Details Date Type Department Care Team (Late st Contact Info) Description 07/09/2019 Transcribed Document [facility] [place] [address] [place] [address] ProviderMariela MD [address] [id number] Social History Tobacco Use Types Packs/Day Years [...] Note - Historical ProviderMD - 07/09/2019 5:00 PM CDT Chart Check - Review Order Profile Entered On: 07/09/2019 20:07 EDT Performed On: 07/09/2019 17:00 EDT by TIM CHOW RN Chart Check Powerplans Initiated/Discontinued as Appropriate : Yes All Active Orders Reviewed : Yes TIM CHOW RN - 07/09/2019 20:07 EDT documented in this encounter Plan of Treatment Not on file documented as of this encounter Visit Diagnoses Not on filedocumented in this encounter
--- OUTSIDE RECORDS SUMMARY | 2024-08-09 13:21 | XMS_ITS | Encounter Summary ---
Author Organization [employer] Address [address] [place] [address] Care Team Providers Care Case Repairer Name Role Phone Unavailable Primary Care Provider Unavailabl e Encounter Details Date Type Department Care Team (Late st Contact Info) Description 07/10/2019 Transcribed Document [facility] [place] [address] [place] [address] ProviderMariela MD [address] [place] [address] Social History Tobacco Use Types Packs/Day Years Used Date Smoking Tobacco: Never Assessed Comments Unknown Sex and Gender Information Value Date Recorded Sex Assigned at Female 09/02/2021 8:57 PM CDT Legal Sex Female 6:58 PM CDT Gender Identity Female 09/02/2021 8:57 PM CDT Sexual Orientation Not on file documented as of this encounter Miscellaneous Notes * Cerner Conversion Note - Historical ProviderMD - 07/10/2019 2:28 PM CDT Pain Assessment Entered On: 07/11/2019 11:12 EDT Performed On: 07/11/2019 10:15 EDT by CAREY OLVERA RN Intervention Information: indomethacin Performed by CAREY OLVERA, RN on 07/11/2019 09:15:00 EDT indomethacin,25mg Oral Pain Assessment Pain Assessment : Follow-up assessment CAREY OLVERA RN - 07/11/2019 11:12 EDT documented in this encounter Plan of Treatment Not on file documented as of this encounter Visit Diagnoses Not on filedocumented in this encounter
--- OUTSIDE RECORDS SUMMARY | 2024-08-09 13:21 | XMS_ITS | Encounter Summary ---
Author Organization [employer] Address [address] [place] [address] Care Team Providers Care Library Cataloging Technician Name Role Phone Unavailable Primary Care Provider Unavailabl e Encounter Details Date Type Department Care Team (Late st Contact Info) Description 07/19/2019 Transcribed Document [facility] Formerly [facility], 1928[address] [place] [address] ProviderMariela MD [address] [place] [address] Social History Tobacco Use Types [...] Conversion Note - Mariela ProviderMD - 07/19/2019 11:58 AM CDT Patient Education Materials Follows: What You Need to Know About Warfarin Warfarin is a blood thinner (anticoagulant). Anticoagulants help to prevent the formation of blood clots. They also help to stop the growth of blood clots. Who should use warfarin? Warfarin is prescribed for people who are at risk for developing harmful blood clots, such as people who have: ??? Surgically implanted mechanical heart valves. ??? Irregular heart rhythms (atrial fibrillation). ??? Certain clotting disorders. ??? A history of harmful blood clotting in the past. This includes people who have had: ? A stroke. ? Blood clot in the lungs (pulmonary embolism, or PE). ? Blood clot in the legs (deep vein thrombosis, or DVT). ??? An existing blood clot. How is warfarin taken? Warfarin is a medicine that you take by mouth (orally). Warfarin tablets come in different strengths. Each tablet strength is a different color, with the amount of warfarin printed on the tablet. If you get a new prescription filled and the color of your tablet is different than usual, tell your pharmacist or health care provider immediately. What blood tests do I need while taking warfarin? The goal of warfarin therapy is to lessen the clotting tendency of blood, but not to prevent clotting completely. Your health care provider will monitor the anticoagulation effect of warfarin closely and will adjust your dose as needed. Warfarin is a medicine that needs to be closely monitored, so it is very important to keep all lab visits and follow-up visits with your health care provider. While taking warfarin, you will need to have blood tests (prothrombin tests, or PT tests) regularly to measure your blood clotting time. This type of test can be done with a finger stick or a blood draw. What does the INR test result mean? The PT test results will be reported as the International Normalized Ratio (INR). The INR tells your health care provider whether your dosage of warfarin needs to be changed. The longer it takes your blood to clot, the higher the INR. Your health care provider will tell you your target INR range. If your INR is not in your target range, your health care provider may adjust your dosage. ??? If your INR is above your target range, there is a risk of bleeding. Your dosage of warfarin may need to be decreased. ??? If your INR is below your target range, there is a risk of clotting. Your dosage of warfarin may need to be increased. How often is the INR test needed? When you first start warfarin, you will usually have your INR checked every few days. ??? You may need to have INR tests done more than once a week until you are taking the correct dosage of warfarin. ??? After you have reached your target INR, your INR will be tested less often. However, you will need to have your INR checked at least once every 4?6 weeks for the entire time you are taking warfarin. What are the side effects of warfarin? Too much warfarin can cause bleeding (hemorrhage) in any part of the body, such as: ??? Bleeding from the gums. ??? Unexplained bruises. ??? Bruises that get larger. ??? Blood in the urine. ??? Bloody or dark stools. ??? Bleeding in the brain (hemorrhagic stroke). ??? A nosebleed that is not easily stopped. ??? Coughing up blood. ??? Vomiting blood. Warfarin use may also cause: ??? Skin rash or irritations ??? Nausea that does not go away. ??? Severe pain in the back or joints. ??? Painful toes that turn blue or purple (purple toe syndrome). ??? Painful ulcers that do not go away (skin necrosis). What are the signs and symptoms of a blood clot? Too little warfarin can increase the risk of blood clots in your legs, lungs, or arms. Signs and symptoms of a DVT in your leg or arm may include: ??? Pain or swelling in your leg or arm. ??? Skin that is red or warm to the touch on your arm or leg. Signs and symptoms of a pulmonary embolism may include: ??? Shortness of breath or difficulty breathing. ??? Chest pain. ??? Unexplained fever. What are the signs and symptoms of a stroke? If you are taking too much or too little warfarin, you can have a stroke. Signs and symptoms of a stroke may include: ??? Weakness or numbness of your face, arm, or leg, especially on one side of your body. ??? Confusion or trouble thinking clearly. ??? Difficulty seeing with one or both eyes. ??? Difficulty walking or moving your arms or legs. ??? Dizziness. ??? Loss of balance or coordination. ??? Trouble speaking, trouble understanding speech, or both (aphasia). ??? Sudden, severe headache with no known cause. ??? Partial or total loss of consciousness. What precautions do I need to take while using warfarin? Take warfarin exactly as told by your health care provider. Doing this helps you avoid bleeding or blood clots that could result in serious injury, pain, or disability. ??? Take your medicine at the same time every day. If you forget to take your dose of warfarin, take it as soon as you remember that day. If you do not remember on that day, do not take an extra dose the next day. ??? Contact your health care provider if you miss or take an extra dose. Do not change your dosage on your own to make up for missed or extra doses. ??? Wear or carry identification that says that you are taking warfarin. ??? Make sure that all health care providers, including your dentist, know you are taking warfarin. ??? If you need surgery, talk with your health care provider about whether you should stop taking warfarin before your surgery. ??? Avoid situations that cause bleeding. You may bleed more easily while taking warfarin. To limit bleeding, take the following actions: ? Use a softer toothbrush. ? Floss with waxed floss, not unwaxed floss. ? Shave with an electric razor, not with a blade. ? Limit your use of sharp objects. ? Avoid potentially harmful activities, such as contact sports. What do I need to know about warfarin and or ? Warfarin is not recommended during the first trimester of due to an increased risk of defects. In certain situations, a woman may take warfarin after her first trimester of . ??? If you are taking warfarin and you become or plan to become , contact your health care provider right away. ??? If you plan to breastfeed while taking warfarin, talk with your health care provider first. What do I need to know about warfarin and alcohol or drug use? Avoid drinking alcohol, or limit alcohol intake to no more than 1 drink a day for non women and 2 drinks a day for men. One drink equals 12 oz of beer, 5 oz of wine, or 1? oz of hard liquor. ? If you change the amount of alcohol that you drink, tell your health care provider. Your warfarin dosage may need to be changed. ??? Avoid tobacco products, such as cigarettes, chewing tobacco, and e-cigarettes. If you need help quitting, ask your health care provider. ? If you change the amount of nicotine or tobacco that you use, tell your health care provider. Your warfarin dosage may need to be changed. ??? Avoid street drugs while taking warfarin. The effects of street drugs on warfarin are not known. What do I need to know about warfarin and other medicines or supplements? Many prescription and oiyy-txs-odwchtz medicines can interfere with warfarin. Talk with your health care provider or your pharmacist before starting or stopping any new medicines. This includes ebpx-vqo-hnxttia vitamins, dietary supplements, herbal medicines, and pain medicines. Your warfarin dosage may need to be adjusted. ??? Some common mtzy-jea-ffzsfkm medicines that may increase the risk of bleeding while taking warfarin include: ? Acetaminophen. ? Aspirin. ? NSAIDs, such as ibuprofen or naproxen. ? Vitamin E. What do I need to know about warfarin and my diet? It is important to maintain a normal, balanced diet while taking warfarin. Avoid major changes in your diet. If you are going to change your diet, talk with your health care provider before making changes. ??? Your health care provider may recommend that you work with a diet and dairy nutrition consultant (dietitian). ??? Vitamin K decreases the effect of warfarin, and it is found in many foods. Eat a consistent amount of foods that contain vitamin K. For example, you may decide to eat 2 vitamin K-containing foods each day. Most foods that are high in vitamin K are green and leafy. Common foods that contain high amounts of vitamin K include: ??? Kale, raw or cooked. ??? Spinach, raw or cooked. ??? Collards, raw or cooked. ??? [place] chard, raw or cooked. ??? Mustard greens, raw or cooked. ??? Turnip greens, raw or cooked. ??? Parsley, raw. ??? Broccoli, cooked. ??? Noodles, eggs, and spinach, enriched. ??? [place] sprouts, raw or cooked. ??? Beet greens, raw or cooked. ??? Endive, raw. ??? Cabbage, cooked. ??? Asparagus, cooked. Foods that contain moderate amounts of vitamin K include: ??? Broccoli, raw. ??? Cabbage, raw. ??? Bok vika, cooked. ??? Green leaf lettuce, raw ??? Prunes, stewed. ??? Pickles. ??? Kiwi. ??? Edamame, cooked. ??? Edilberto lettuce, raw. ??? Avocado. ??? Tuna, canned in oil. ??? Okra, cooked. ??? Black-eyed peas, cooked. ??? Green beans, cooked or raw. ??? Blueberries, raw. ??? Blackberries, raw. ??? Peas, cooked or raw. Contact a health care provider if: ??? You miss a dose. ??? You take an extra dose. ??? You plan to have any kind of surgery or procedure. ??? You are unable to take your medicine due to nausea, vomiting, or diarrhea. ??? You have any major changes in your diet or you plan to make any major changes in your diet. ??? You start or stop any mdwp-iqh-ndwothd medicine, prescription medicine, or dietary supplement. ??? You become , plan to become , or think you may be . ??? You have menstrual periods that are heavier than usual. ??? You have unusual bruising. Get help right away if: ??? You develop symptoms of an allergic reaction, such as: ? Swelling of the lips, face, tongue, mouth, or throat. ? Rash. ? Itching. ? Itchy, red, swollen areas of skin (hives). ? Trouble breathing. ? Chest tightness. ??? You have: ? Signs or symptoms of a stroke. ? Signs or symptoms of a blood clot. ? A fall or have an accident, especially if you hit your head. ? Blood in your urine. Your urine may look reddish, pinkish, or tea-colored. ? Blood in your stool. Your stool may be black or bright red. ? Bleeding that does not stop after applying pressure to the area for 30 minutes. ? Severe pain in your joints or back. ? Purple or blue toes. ? Skin ulcers that do not go away. ??? You vomit blood or cough up blood. The blood may be bright red, or it may look like coffee grounds. These symptoms may represent a serious problem that is an emergency. Do not wait to see if the symptoms will go away. Get medical help right away. Call your local emergency services (911 in the [place] Do not drive yourself to the hospital. Summary ??? Warfarin needs to be closely monitored with blood tests. It is very important to keep all lab visits and follow-up visits with your health care provider. ??? Make sure that you know your target INR range and your warfarin dosage. ??? Wear or carry identification that says that you are taking warfarin. ??? Take warfarin at the same time every day. Call your health care provider if you miss a dose or if you take an extra dose. Do not change the dosage of warfarin on your own. ??? Know the signs and symptoms of blood clots, bleeding, and a stroke. Know when to get emergency medical help. ??? Tell all health care providers who care for you that you are taking warfarin. ??? Talk with your health care provider or your pharmacist before starting or stopping any new medicines. ??? Monitor how much vitamin K you eat every day. Try to eat the same amount every day. This information is not intended to replace advice given to you by your health care provider. Make sure you discuss any questions you have with your health care provider. Document Released: 02/15/2006 Document Revised: 06/21/2017 Document Reviewed: 05/13/2016 [employer] Interactive Patient Education ? 2019 [employer] Hypertension, Adult High blood pressure (hypertension) is when the force of blood pumping through the arteries is too strong. The arteries are the blood vessels that carry blood from the heart throughout the body. Hypertension forces the heart to work harder to pump blood and may cause arteries to become narrow or stiff. Untreated or uncontrolled hypertension can cause a heart attack, heart failure, a stroke, kidney disease, and other problems. A blood pressure reading consists of a higher number over a lower number. Ideally, your blood pressure should be below 120/80. The first ( top ) number is called the systolic pressure. It is a measure of the pressure in your arteries as your heart beats. The second ( bottom ) number is called the diastolic pressure. It is a measure of the pressure in your arteries as the heart relaxes. What are the causes? The exact cause of this condition is not known. There are some conditions that result in or are related to high blood pressure. What increases the risk? Some risk factors for high blood pressure are under your control. The following factors may make you more likely to develop this condition: ??? Smoking. ??? Having type 2 diabetes mellitus, high cholesterol, or both. ??? Not getting enough exercise or physical activity. ??? Being overweight. ??? Having too much fat, sugar, calories, or salt (sodium) in your diet. ??? Drinking too much alcohol. Some risk factors for high blood pressure may be difficult or impossible to change. Some of these factors include: ??? Having chronic kidney disease. ??? Having a family history of high blood pressure. ??? Age. Risk increases with age. ??? Race. You may be at higher risk if you are . ??? Gender. Men are at higher risk than women before age 45. After age 65, women are at higher risk than men. ??? Having obstructive sleep apnea. ??? Stress. What are the signs or symptoms? High blood pressure may not cause symptoms. Very high blood pressure (hypertensive crisis) may cause: ??? Headache. ??? Anxiety. ??? Shortness of breath. ??? Nosebleed. ??? Nausea and vomiting. ??? Vision changes. ??? Severe chest pain. ??? Seizures. How is this diagnosed? This condition is diagnosed by measuring your blood pressure while you are seated, with your arm resting on a flat surface, your legs uncrossed, and your feet flat on the floor. The cuff of the blood pressure monitor will be placed directly against the skin of your upper arm at the level of your heart. It should be measured at least twice using the same arm. Certain conditions can cause a difference in blood pressure between your right and left arms. Certain factors can cause blood pressure readings to be lower or higher than normal for a short period of time: ??? When your blood pressure is higher when you are in a health care provider's office than when you are at home, this is called white coat hypertension. Most people with this condition do not need medicines. ??? When your blood pressure is higher at home than when you are in a health care provider's office, this is called masked hypertension. Most people with this condition may need medicines to control blood pressure. If you have a high blood pressure reading during one visit or you have normal blood pressure with other risk factors, you may be asked to: ??? Return on a different day to have your blood pressure checked again. ??? Monitor your blood pressure at home for 1 week or longer. If you are diagnosed with hypertension, you may have other blood or imaging tests to help your health care provider understand your overall risk for other conditions. How is this treated? This condition is treated by making healthy lifestyle changes, such as eating healthy foods, exercising more, and reducing your alcohol intake. Your health care provider may prescribe medicine if lifestyle changes are not enough to get your blood pressure under control, and if: ??? Your systolic blood pressure is above 130. ??? Your diastolic blood pressure is above 80. Your personal target blood pressure may vary depending on your medical conditions, your age, and other factors. Follow these instructions at home: Eating and drinking ??? Eat a diet that is high in fiber and potassium, and low in sodium, added sugar, and fat. An example eating plan is called the DASH (Dietary Approaches to Stop Hypertension) diet. To eat this way: ? Eat plenty of fresh fruits and vegetables. Try to fill one half of your plate at each meal with fruits and vegetables. ? Eat whole grains, such as whole-wheat pasta, brown rice, or whole-grain bread. Fill about one fourth of your plate with whole grains. ? Eat or drink low-fat dairy products, such as skim milk or low-fat yogurt. ? Avoid fatty cuts of meat, processed or cured meats, and poultry with skin. Fill about one fourth of your plate with lean proteins, such as fish, chicken without skin, beans, eggs, or tofu. ? Avoid pre-made and processed foods. These tend to be higher in sodium, added sugar, and fat. ??? Reduce your daily sodium intake. Most people with hypertension should eat less than 1,500 mg of sodium a day. ??? Do not drink alcohol if: ? Your health care provider tells you not to drink. ? You are , may be , or are planning to become . ??? If you drink alcohol: ? Limit how much you use to: ? 0?1 drink a day for women. ? 0?2 drinks a day for men. ? Be aware of how much alcohol is in your drink. In the [place] one drink equals one 12 oz bottle of beer (355 mL), one 5 oz glass of wine (148 mL), or one 1? oz glass of hard liquor (44 mL). Lifestyle ??? Work with your health care provider to maintain a healthy body weight or to lose weight. Ask what an ideal weight is for you. ??? Get at least 30 minutes of exercise most days of the week. Activities may include walking, swimming, or biking. ??? Include exercise to strengthen your muscles (resistance exercise), such as Pilates or lifting weights, as part of your weekly exercise routine. Try to do these types of exercises for 30 minutes at least 3 days a week. ??? Do not use any products that contain nicotine or tobacco, such as cigarettes, e-cigarettes, and chewing tobacco. If you need help quitting, ask your health care provider. ??? Monitor your blood pressure at home as told by your health care provider. ??? Keep all follow-up visits as told by your health care provider. This is important. Medicines ??? Take lddc-gcm-jjidssj and prescription medicines only as told by your health care provider. Follow directions carefully. Blood pressure medicines must be taken as prescribed. ??? Do not skip doses of blood pressure medicine. Doing this puts you at risk for problems and can make the medicine less effective. ??? Ask your health care provider about side effects or reactions to medicines that you should watch for. Contact a health care provider if you: ??? Think you are having a reaction to a medicine you are taking. ??? Have headaches that keep coming back (recurring). ??? Feel dizzy. ??? Have swelling in your ankles. ??? Have trouble with your vision. Get help right away if you: ??? Develop a severe headache or confusion. ??? Have unusual weakness or numbness. ??? Feel faint. ??? Have severe pain in your chest or abdomen. ??? Vomit repeatedly. ??? Have trouble breathing. Summary ??? Hypertension is when the force of blood pumping through your arteries is too strong. If this condition is not controlled, it may put you at risk for serious complications. ??? Your personal target blood pressure may vary depending on your medical conditions, your age, and other factors. For most people, a normal blood pressure is less than 120/80. ??? Hypertension is treated with lifestyle changes, medicines, or a combination of both. Lifestyle changes include losing weight, eating a healthy, low-sodium diet, exercising more, and limiting alcohol. This information is not intended to replace advice given to you by your health care provider. Make sure you discuss any questions you have with your health care provider. Document Released: 02/15/2006 Document Revised: 10/26/2018 Document Reviewed: 10/26/2018 [employer] Interactive Patient Education ? 2019 [employer] How to Use a Knee Immobilizer A [...] 02/15/2006 Document Revised: 02/01/2017 Document Reviewed: 02/01/2017 [employer] Interactive Patient Education ? 2019 [employer] documented in this encounter Plan of Treatment Not on file documented as of this encounter Visit Diagnoses Not on filedocumented in this encounter
--- OUTSIDE RECORDS SUMMARY | 2024-08-09 13:21 | XMS_ITS | Encounter Summary ---
Author Organization [employer] Address [address] [place] [address] Care Team Providers Care Svp Digital Ad Sales Name Role Phone Unavailable Primary Care Provider Unavailabl e Encounter Details Date Type Department Care Team (Late st Contact Info) Description 07/10/2019 Transcribed Document [facility] [place] Family Medicine [facility] [place] [address] ProviderMariela MD [facility] [place] [address] Social History Tobacco Use Types [...] Cerner Conversion Note - Mariela ProviderMD - 07/10/2019 5:30 PM CDT Patient: SOFIA BARLOW Age: 79 [...] DONNA DRIVER MD-INT Basic Information awake alert ex ???Complaining of right ankle pain and swelling with possible acute gout attack ???Uric acid level is 5.6, which is high normal Review of Systems Constitutional: No fever, No chills. Eye: No discharge, No blurring, No double vision, No visual disturbances. Ear/Nose/Mouth/Throat: No nasal congestion, No sore throat. Respiratory: No shortness of breath, No cough. Cardiovascular: No chest pain, No palpitations. Gastrointestinal: No nausea, No vomiting. Genitourinary: No change in urine stream. Musculoskeletal: Negative, Left lower extremity in a brace. Integumentary: wound stable covered w. clean dressing. [...] 0.9% 50 mL 2 Gram, IV Piggyback, [id number] cyanocobalamin 1,000 mcg tab 5,000 mcg 5 [...] Oral, Q4H fluticasone 0.05% nasal spray 2 [place], Nostrils Both, BID magnesium hydroxide 8% liq [...] Sleep apnea Physical Examination VS/Measurements Vital Measurements 07/10/2019 15:00 EDT Systolic Blood Pressure 135 mmHg Diastolic Blood Pressure 52 mmHg LOW Temperature Source Oral Temperature Mode Fahrenheit Temperature, Fahrenheit 98.4 Deg F Clinical Temperature, C 36.9 Deg C Heart Rate Monitored 90 bpm Respiratory Rate 18 Breaths/Min Oxygen Saturation 99 % General: Alert and oriented, No acute [...] Review / Management Results review: All Results 07/10/2019 5:30 EDT Sodium Level 133 mmol/L LOW Potassium Level 4.4 mmol/L Chloride Level 101 mmol/L LOW Carbon Dioxide Level 27 mmol/L Anion Gap 9 Glucose Level 116 mg/dL HI Blood Urea Nitrogen 30 mg/dL HI Creatinine Level 0.70 mg/dL eGFR >60 mL/min/1.73m2 eGFR NonAfrican >60 mL/min/1.73m2 Bun/Creatinine 42.9 HI Calcium Level 8.4 mg/dL Protein Total 7.5 Gram/dL Albumin Level 2.6 Gram/dL LOW Globulin 4.9 Gram/dL HI A/G Ratio 0.5 LOW Bilirubin Total 0.3 mg/dL Alk Phos 49 Units/Liter AST 15 Units/Liter ALT 14 Units/Liter CRP 8.8 mg/dL HI Uric Acid 5.6 mg/dL Folate Level >20.00 ng/mL HI Vitamin B12 Level 2,958 pg/mL HI WBC 7.2 K/uL RBC 2.62 Million/uL LOW Hgb 8.0 g/dL LOW Hct 25.3 % LOW MCV 96.6 fL HI MCH 30.5 pg MCHC 31.6 Gram/dL LOW Platelet Count 398 K/uL HI MPV 8.6 fL LOW RDW 13.1 % Neut % 58.0 % Neut # 4.18 K/uL Lymph % 22.4 % Lymph # 1.61 x10(3)/uL [place] % 12.7 % HI [place] # 0.91 K/uL Eos % 6.3 % Eos # 0.45 x10(3)/uL Baso % 0.3 % Baso # 0.02 x10(3)/uL Sed Rate Auto 54 mm/Hr HI Slide Review No IG# 0.02 x10(3)/uL IG% 0.30 % PT 11.7 Second(s) INR 1.1 Iron Level 35 mcg/dL LOW % Iron Saturation 9.2 % LOW Ferritin Level 206.3 ng/mL TIBC 381.0 mcg/dL Prealbumin 12.6 mg/dL LOW . Condition: Stable. Impression and [...] renal function, blood glucose, and urine output. Start indomethacin. Continue on IV antibiotics as recommended by infectious disease. Pain control. DVT prophylaxis. Close monitoring fluid and electrolytes. For risk precautions.. documented in this encounter Plan of Treatment Not on file documented as of this encounter Visit Diagnoses Not on filedocumented in this encounter
--- OUTSIDE RECORDS SUMMARY | 2024-08-09 13:21 | XMS_ITS | Encounter Summary ---
Author Organization [employer] Address [address] [place] [address] Care Team Providers Care Commodity Industry Analyst Name Role Phone Unavailable Primary Care Provider Unavailabl e Encounter Details Date Type Department Care Team (Late st Contact Info) Description 06/22/2019 Transcribed Document [facility] [place] [address] [place] [address] ProviderMariela MD [address] [place] [address] Social History Tobacco Use Types Packs/Day Years [...] Note - Historical ProviderMD - 06/22/2019 9:00 PM CDT Pain Assessment Entered On: 06/22/2019 23:02 EDT Performed On: 06/22/2019 22:38 EDT by Nemo Macario RN Intervention Information: acetaminophen Performed by Nicole Nicole RN on 06/22/2019 21:38:00 EDT acetaminophen,1000mg Oral Pain Assessment Pain Assessment : Follow-up assessment Pain Scale Goal : 3 Pain Comment : pt appears to be asleep Nemo Macario, RN - 06/22/2019 23:02 EDT documented in this encounter Plan of Treatment Not on file documented as of this encounter Visit Diagnoses Not on filedocumented in this encounter
--- OUTSIDE RECORDS SUMMARY | 2024-08-09 13:21 | XMS_ITS | Encounter Summary ---
Author Organization [employer] Address [address] [place] [address] Care Team Providers Care Scanning Clerk Name Role Phone Unavailable Primary Care Provider Unavailabl e Encounter Details Date Type Department Care Team (Late st Contact Info) Description 08/22/2020 Transcribed Document [facility] [place] Medicine [facility] [place] [address] ProviderMariela MD [facility] [place] [address] Social History Tobacco Use Types [...] Cerner Conversion Note - Historical ProviderMD - 08/22/2020 4:00 PM CDT Pain Assessment Entered On: 08/22/2020 18:41 EDT Performed On: 08/22/2020 17:20 EDT by Didi Villegas RN Intervention Information: traMADol Performed by Adrianna Quintana RN on 08/22/2020 16:20:00 EDT traMADol,50mg Oral Pain Assessment Pain Assessment : Follow-up assessment Pain Scale Goal : 3 Pain Scale Used : 0-10 Scale Didi Villegas RN - 08/22/2020 18:40 EDT Pain Scale Intensity : 2 Didi Villegas RN - 08/22/2020 18:40 EDT Image 4 - Images currently included in the form version of this document have not been included in the text rendition version of the form. documented in this encounter Plan of Treatment Not on file documented as of this encounter Visit Diagnoses Not on filedocumented in this encounter
--- OUTSIDE RECORDS SUMMARY | 2024-08-09 13:21 | XMS_ITS | Encounter Summary ---
Author Organization [email or web address] Address [address] [place] [address] Care Team Providers Care Acid Cutter Name Role Phone Unavailable Primary Care Provider Unavailabl e Encounter Details Date Type Department Care Team (Late st Contact Info) Description 08/13/2020 Transcribed Document [facility] [place] Family Medicine [facility] [place] [address] ProviderMariela MD [address] [place] [address] Social History Tobacco Use Types Packs/Day [...] Cerner Conversion Note - Historical ProviderMD - 08/13/2020 2:00 PM CDT Patient: SOFIA GILL Age: 80 Years Sex: Female : 1940 Chief Complaint Right Knee Pain Primary Care Provider NILA CHO, [facility] History of Present Illness This patient is a pleasant 80 yo WF who presents with right knee pain. 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 She subsequently sustained a fall and noted right knee pain. 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 She has used a wheelchair as an assistive device. She was seen at Dr Saenz's office and evaluated and pt was offered a Right Knee Patella Tendon Reconstruction and agreed to the procedure. Pt denies a h/o DVT/PE. No trouble with anesthesia in the past. Pt has a h/o SHERRY and asthma and wears CPAP. Review of Systems Constitutional: Neg for fevers or chills. Eyes: Neg for blurry vision or change in vision. ENT: Neg for sore throat, ear pain, or dizziness. Cardiac: Neg for chest pain or dyspnea on exertion. Respiratory: Neg for shortness of breath. Gastrointestinal: Neg for nausea, vomiting, diarrhea, or constipation. Musculoskeletal: Pos for right knee pain. Neurologic: Neg for headaches or seizures. Psychiatric: Neg for anxiety and depression. Integumentary: Neg for rash. Vital Signs T: 36.8 ??C HR: 89(Peripheral) RR: 18 BP: 123/58 SpO2: 97% HT: 152.4 cm WT: 90.91 kg BMI: 39.1 Oxygen Settings (Last) Oxygen Therapy Mode: Room air (08/13/20 10:24:00) Physical Exam Constitutional: This is a pleasant 80 yo WF, BMI 39.1, in no acute distress. HEENT: Normocephalic, atraumatic. PEERLA. Extraocular muscles intact. Conjunctiva pink without exudate. Oropharynx pink and moist. Neck supple. No JVD. Cardiac: SI, S2. RRR. No M/R/G. Respiratory: Lungs CTA bilaterally. No wheezes, rales, or rhonchi. Abdomen: Soft, nontender, nondistended. Active bowel sounds. No visible masses. Musculoskeletal: Bilateral LE without clubbing, cyanosis or edema. Integumentary: Skin is pink, warm and dry. No rashes. Neurologic: CN II-XII grossly intact. Psychiatric: Judgment and affect appropriate. Assessment/Plan 1. Preoperative Evaluation- Pt underwent preoperative laboratory workup and diagnostic studies. 2. Right Knee Pain- Proceed with surgery as scheduled with Dr Saenz on 08/20/2020. 3. Hypertension- Continue Lisinopril and Furosemide. 4. Hypothyroidism- Continue Synthroid. 5. Hyperlipidemia- Continue Crestor. 6. Seasonal Allergies- Continue Cetirizine. 7. SHERRY- Continue CPAP. 8. Asthma- Nebs/Inhalers prn. 9. H/o Left Knee Prosthesis Infection- Pt is followed by Dr Trujillo and is on lifelong Cephalexin and Doxycycline. Problem List/Past Medical History Ongoing Cardiac arrhythmia Cataract Chronic venous insufficiency Constipation Edema - BLE History of obstructive sleep apnea HTN (hypertension) Hx: GERD (gastroesophageal reflux disease) Hypercholesteremia Hypothyroid Kidney cysts right Knee pain, bilateral Lung abnormality right Murmur, cardiac Osteoarthritis Osteoporosis Pain management Redness bilateral lower legs Seasonal allergies Shoulder pain, bilateral Sleep apnea Procedure/Surgical History INTRODUCE OTH ANTI-INFECT IN CENTRAL VEIN, PERC (06/26/2019), TRANSFUSE NONAUT RED BLOOD CELLS IN PERIPH VEIN, PERC (06/22/2019), REMOVAL OF SYNTH SUB FROM L KNEE JT, FEMORAL, OPEN APPROACH (06/21/2019), REPLACE L KNEE JT, FEMORAL W SYNTH SUB, UNCEMENT, OPEN (06/21/2019), INSERTION OF INFUSION DEV INTO SUP VENA CAVA, PERC APPROACH (06/20/2019), ULTRASONOGRAPHY OF HEART WITH AORTA (06/17/2019), REPLACE OF R KNEE JT WITH SYNTH SUB, CEMENT, OPEN APPROACH (08/22/2018), TRANSFUSE NONAUT RED BLOOD CELLS IN PERIPH VEIN, PERC (11/25/2016), DRAINAGE OF LEFT KNEE JOINT, OPEN APPROACH (11/24/2016), REMOVAL OF LINER FROM LEFT KNEE JOINT, OPEN APPROACH (11/24/2016), REPAIR LEFT KNEE TENDON, OPEN APPROACH (11/24/2016), SUPPLEMENT L KNEE JT WITH LINER, PATELLA, OPEN APPROACH (11/24/2016), TRANSFUSE NONAUT RED BLOOD CELLS IN PERIPH VEIN, PERC (10/29/2016), TRANSFUSE NONAUT RED BLOOD CELLS IN PERIPH VEIN, PERC (10/28/2016), REMOVAL OF SYNTH SUB FROM L KNEE JT, FEMORAL, OPEN APPROACH (10/26/2016), REPLACE L KNEE JT, FEMORAL W SYNTH SUB, CEMENT, OPEN (10/26/2016), Colonoscopy, Babak filter, lap band gastric bypass, left knee ORIF, left shoulder ORIF, left TKA, left TSA, revision left TKA, right RCR, x 2. Home Medications (21) Active Aspir 81 oral delayed release tablet 81 mg = 1 Tab, Oral, Daily calcium carbonate vitamin D3 cephalexin 500 mg oral capsule 500 mg = 1 Cap, Oral, Q12H cetirizine 10 mg oral tablet 10 mg = 1 Tab, Oral, Daily Crestor 10 mg oral tablet 10 mg = 1 Tab, Oral, At Bedtime cyanocobalamin 5000 mcg oral tablet, extended release 5,000 mcg = 1 Tab, Oral, Daily Cymbalta 60 mg oral delayed release capsule 60 mg = 1 Cap, Oral, Daily diclofenac 75 mg, Oral, BID doxycycline monohydrate 50 mg oral capsule 100 mg = 2 Cap, Oral, Q12H ferrous sulfate 325 mg (65 mg elemental iron) oral delayed release tablet 325 mg = 1 Tab, Oral, Daily fluticasone 50 mcg/inh nasal spray 2 [place], PRN, Nostrils Both, BID furosemide 40 mg oral tablet 40 mg = 1 Tab, Oral, Daily lisinopril 5 mg, Oral, Daily MiraLax oral powder for reconstitution 17 Gram, Oral, Daily Multiple Vitamins oral tablet 1 Tab, Oral, Daily oxyCODONE 10 mg, PRN, Oral, Q8H potassium chloride 20 mEq oral tablet, extended release 20 mEq = 1 Tab, Oral, BID Sports Pain Relief Rub 10% topical cream Synthroid 100 mcg (0.1 mg) oral tablet 100 mcg = 1 Tab, Oral, Daily traMADol 50 mg, PRN, Oral, Q6H [place] 500 mg Allergies amLODIPine valdecoxib Bextra (Itching) Latex (Itching) Mobic (Itching) Naprosyn (Itching) etodolac (Itching) penicillin (Shortness of breath) phentermine (unknown reaction) sulfa drugs (Itching) Social History Alcohol Alcohol Use History No. Alcohol Use History No. 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 Home/Environment Lives with Alone. Living situation: Home/Independent. Home equipment: Walker/Cane, Wheelchair, shower chair, elevated commode, rolling walker. Alcohol abuse in household: No. Substance abuse in household: No. Smoker in household: No. Injuries/Abuse/Neglect in household: No. Feels unsafe at home: No. Family/Friends available for support: Yes. Nutrition/Health Regular, Caffeine intake amount: occassional. Substance Abuse Drug Use Hx: No. Drug Use Hx: No. Use in Last 12 Months: No. Tobacco Never (less than 100 in lifetime) Smoking Status. Never Smokeless Tobacco Status. Smoking Status Never smoker. Used Tobacco, but Quit No. Family History Pt mother at 83 from pneumonia. Pt father at 59 from Suicide. Diagnostic Results EKG- Sinus Rhythm, 86 Lab Results WBCs- 8.8 Hbg- 11.9 Hct- 35.5 Plts- 397 Glucose- 74 Na- 140 K- 4.6 BUN- 41 Cr- 0.9 GFR- 61 Albumin- 3.1 Prealbumin- 25 Hbg A1C- 5.0 PT- 10.9 INR- 1.0 PTT- 26.8 Fructosamine- 186 Electronically signed by Interface, [facility] Conversion Aerial Erector Cerner at 06/16/2022 8:08 PM CDT documented in this encounter Plan of Treatment Not on file documented as of this encounter Visit Diagnoses Not on filedocumented in this encounter
--- OUTSIDE RECORDS SUMMARY | 2024-08-09 13:21 | XMS_ITS | Encounter Summary ---
Author Organization [employer] Address [address] [place] [address] Care Team Providers Care Electrical Installation Supervisor Name Role Phone Unavailable Primary Care Provider Unavailabl e Encounter Details Date Type Department Care Team (Late st Contact Info) Description 08/13/2020 Transcribed Document [facility] [place] [address] [place] [address] ProviderMariela MD [address] [place], [place] [id number] Social History Tobacco Use Types Packs/Day Years [...] Conversion Note - Historical ProviderMD - 08/13/2020 10:37 AM CDT Meds to Bed Enrollment Entered On: 08/13/2020 10:37 EDT Performed On: 08/13/2020 10:37 EDT by BINDU MOREIRA, RN Meds to Bed Enrollment Patient Enrollment Decision: : Yes/enroll in meds to bed program BINDU MOREIRA RN - 08/13/2020 10:37 EDT documented in this encounter Plan of Treatment Not on file documented as of this encounter Visit Diagnoses Not on filedocumented in this encounter
--- OUTSIDE RECORDS SUMMARY | 2024-08-09 13:21 | XMS_ITS | Encounter Summary ---
Author Organization [employer] Address [address] [place] [address] Care Team Providers Care Director Internal Communications Name Role Phone Unavailable Primary Care Provider Unavailabl e Encounter Details Date Type Department Care Team (Late st Contact Info) Description 06/26/2019 Transcribed Document [facility] [place] Medicine [facility] [place] [address] ProviderMariela MD [address] [place] [address] Social History Tobacco Use Types Packs/Day [...] ProviderMD - 06/26/2019 8:17 PM CDT Evaluation, Physical Therapy Entered On: 06/27/2019 11:38 EDT Performed On: 06/27/2019 11:37 EDT by OSKAR MARTÍNEZ, PT General Information, PT Co-treated by, PT : Occupational Therapist General Information Comment, PT : 79 year old female 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 Initially encouraged to perform left AKA secondary to life-threatening infection but now has been admitted with attempt to salvage left LE; has hip to ankle orthotic/brace and is allowed WBAT. PMH: cardiac arrythmia, GERD, HTN, OA, osteoporosis, left total shoulder replacement. OSAKR MARTÍNEZ, PT - 06/27/2019 11:41 EDT Visit Type, PT : Initial evaluation OSKAR MARTÍNEZ PT - 06/27/2019 11:37 EDT Patient Orders : Order Date Order Ordering 06/26/2019 20:17 PT Evaluation and Treatment Ordered By: DONNA DRIVER MD-INT Active Diagnoses : No Qualifying Diagnoses Therapy Diagnosis, PT : Decreased strength and mobility s/p left knee prosthetic hardware infection OSKAR MARTÍNEZ, PT - 06/27/2019 11:41 EDT Onset of Problem, PT : 06/27/2019 EDT OSKAR MARTÍNEZ PT - 06/27/2019 11:37 EDT Admission Date : 06/26/2019 18:33 Personal Devices : Personal Devices Glasses Assistive Devices : Assistive Devices No Devices Recorded OSKAR MARTÍNEZ PT - 06/27/2019 11:41 EDT Isolation Maintained : Contact OSKAR MARTÍNEZ PT - 06/27/2019 11:37 EDT General Status Patient Received Status : Supine in bed Treatment Start Time : 06/27/2019 9:14 EDT Patient Left Status : Up in chair, All needs met and within reach Treatment End Time : 06/27/2019 9:51 EDT Treatment Time : 37 Minute(s) OSKAR MARTÍNEZ PT - 06/27/2019 11:41 EDT History and Environment Living Situation, Therapy : Home Patient Lives With : Alone Persons Assisting Patient at Home : Alone Professional Skilled Services : None Persons Providing Information : Patient Home Equipment Therapy, PT : Other: Rwx, rollator, cane, shower chair, wheelchair Home Setup : Two story Bedroom Location : Downstairs Bathroom #1 Location : Downstairs Stairs : Yes Stair Location(s) : Inside Inside Stairs, Number of Steps : 12 Stairs Inside Comment : Patient does not go upstairs Ramp : Yes OSKAR MARTÍNEZ, PT - 06/27/2019 11:41 EDT Prior Level of Function PT GRID Prior LOF Ambulation, Household : Independent (Comment: Rwx [OSKAR MARTÍNEZ PT - 06/27/2019 11:41 EDT] ) Prior LOF Ambulation, Community : Assist needed (Comment: wheelchair [OSKAR MARTÍNEZ PT - 06/27/2019 11:41 EDT] ) Prior LOF Bed Mobility : Independent Prior LOF Toileting : Independent Prior LOF Transfer : Independent Prior LOF Wheel Chair Mobility : Assist needed OSKAR MARTÍNEZ PT - 06/27/2019 11:41 EDT Prior LOF Assist with ADL Comment : Patient was independent with ADL's but had assistance with housekeeping and delivery of groceries OSKAR MARTÍNEZ PT - 06/27/2019 11:41 EDT Upper Extremity Right UE Active ROM : Impaired Right UE Active Assist ROM : Impaired Right UE Strength : Impaired Left UE Active ROM : Impaired Left UE Active Assist ROM : Impaired Left UE Passive ROM : Impaired Left UE Strength : Impaired Hand Biomedical Engineering Director Test : bilaterally 4/5 Upper Extremity Comment : Patient has WFL's below 90 degrees bilaterally secondary to shoulder dysfunction OSKAR MARTÍNEZ, PT - 06/27/2019 11:41 EDT Lower Extremity RLE Active ROM : WFL Right LE Strength : WFL LLE Active ROM : Impaired Left LE Active Assist ROM : Impaired LLE Passive ROM : Impaired Left LE Strength : Impaired Lower Extremity Comment : Patient has orthotic/brace left hip to ankle; to be worn at all times, WBAT. No ROM OSKAR MARTÍNEZ PT - 06/27/2019 11:41 EDT Functional Mobility Mobility Grid Bed Roll Right : Rehab Moderate assistance Bed Scooting : Rehab Moderate assistance Supine to Sit : Rehab Moderate assistance (Comment: x 1-2 [OSKAR MARTÍNEZ PT - 06/27/2019 11:41 EDT] ) Sit to Stand : Rehab Moderate assistance (Comment: x 2 [OSKAR MARTÍNEZ PT - 06/27/2019 11:41 EDT] ) Bed to Chair : Rehab Moderate assistance (Comment: x 1-2 [OSKAR MARTÍNEZ PT - 06/27/2019 11:41 EDT] ) Stand to Sit : Rehab Moderate assistance OSKAR MARTÍNEZ PT - 06/27/2019 11:41 EDT Gait Training/Assessment, PT Weight Bearing Status Maintained : Yes Weight Bearing Status : As tolerated left lower extremity Gait Assistance Level : Unable to assess/activity not appropriate Walking Distance : Patient took a 4-5 small steps from EOB to recliner chair Ambulatory Devices : Gait belt, Walker, front wheel OSKAR MARTÍNEZ, PT - 06/27/2019 11:41 EDT Neurological/Sensory Overall Sensory Response : Impaired Overall Sensory Response Comment : Pt describes numbness across left knee Response to Pain : Intact Response to Pain Comment : 09/07 left knee and my right knee hurts too OSKAR MARTÍNEZ, PT - 06/27/2019 11:41 EDT Activity Tolerance, PT Activity Comment : Very good OSKAR MARTÍNEZ PT - 06/27/2019 11:41 EDT Cognition Assessment, PT Orientation : Oriented x 4 Safety/Judgment Comment : Good Attention Assessment : Present OSKAR MARTÍNEZ PT - 06/27/2019 11:41 EDT Edu Topics Physical Therapy Education Grid Role of Physical Therapy : Returns demonstration Use of Assistive Device : Returns demonstration OSKAR MARTÍNEZ, PT - 06/27/2019 11:41 EDT Indication Assesessment, PT Physical Therapy Indicated : Yes PT Problem List : Impaired, activities daily living, Impaired, bed mobility, Impaired, endurance tolerance, Impaired, gait, Impaired, joint mobility, Impaired, standing balance, Impaired, strength, Impaired, transfers Potential Barriers To Therapy : Acuity of Illness Rehabilitation Potential : Fair PT Potential Guarded Due to : suggests patient has potentially life-threatening infection which may require left OSKAR MORRIS PT - 06/27/2019 11:41 EDT Plan of Care, PT PT Tx Plan/Goals Established w Patient : Yes PT Frequency Rehab : Five days per week PT Duration Rehab : Other: 28 days PT Treatments Planned : Bed mobility training, Gait training, Safety education, Therapeutic exercises, Transfer training OSKAR MARTÍNEZ, PT - 06/27/2019 11:41 EDT Short Term Goals Mobility/Bed Mobility STG PT Grid Goal #1 Activity : Supine to sit Assist : Assist, minimal Equipment : Bed, hospital Date to Meet : 07/11/2019 EDT Goal Status : Initial goal OSKAR MARTÍNEZ PT - 06/27/2019 11:41 EDT Transfer STG Grid Goal #1 Destination : Chair, with arms Type : Other: step-to Assist : Assist, moderate Equipment : Walker, front wheel Date to Meet : 07/11/2019 EDT Goal Status : Intial Goal Comment : x 1 OSKAR MARTÍNEZ PT - 06/27/2019 11:41 EDT Ambulation STG Grid Goal #1 Device : Walker, front wheel Distance : 25' Assist : Assist, moderate Date to Meet : 07/11/2019 EDT Goal Status : Intial Goal Comment : x 2 OSKAR MARTÍNEZ PT - 06/27/2019 11:41 EDT Usp Goals Mobility/Bed Mobility LTG PT Grid Goal #1 Activity : Supine to sit Assist : Independent, modified Equipment : Bed, hospital Date to Meet : 07/25/2019 EDT Goal Status : Intial Goal MARTÍNEZ OSKAR, PT - 06/27/2019 11:41 EDT Transfer LTG Grid Goal #1 Destination : Chair, with arms Type : Other: step-to Assist : Assist, minimal Equipment : Walker, front wheel Date to Meet : 07/25/2019 EDT Goal Status : Intial Goal Comment : x 2 OSKAR MARTÍNEZ, PT - 06/27/2019 11:41 EDT Ambulation LTG Grid Goal #1 Device : Walker, front wheel Distance : 50' Assist : Assist, minimal Date to Meet : 07/25/2019 EDT Goal Status : Intial Goal Comment : x 2 OSKAR MARTÍNEZ, PT - 06/27/2019 11:41 EDT Treatment Note Subjective Comment : Patient informed of PT/OT evaluation. Agrees to participate. C/O of 7/10 pain bilateral knees. Nursing informed and administered pain medication prior to evaluation. Patient's Response to Treatment : Stable, cooperative Additional Objective Information : Rolling to left and supine to sit mod assist x 2. Once EOB patient min to SBA x 1. Sit to stand mod assist x 2 using Rwx. Patient seated. Sit to stand again; mod assist x 2 using Rwx; step-to transfer bed to chair mod assist x 2. Patient positioned with LE's elevated. Assessment : Patient alert and oriented; good baseline mobility and strength. Has orthotic/brace from left hip to ankle; WBAT left LE. NO ROM left LE; in full extension with brace at all times. Will benefit from skilled PT to address mobility and endurance while in LTAC. Plan for Treatment : Per POC OSKAR MARTÍNEZ, PT - 06/27/2019 11:41 EDT Pain Assessment Pain Scaled Used : 0-10 Pain scale Pain Score Pre-Intervention : 7 Pain Score Post-Intervention. : 7 Location : Knees, bilateral Pain Comment : Nursing informed; administered pain medication prior to evaluation OSKAR MARTÍNEZ PT - 06/27/2019 11:41 EDT Image 1 - Images currently included in the form version of this document have not been included in the text rendition version of the form. Anticipated Discharge Needs, OT/PT Anticipated Discharge to : Unit, rehabilitation OSKAR MARTÍNEZ, PT - 06/27/2019 11:[address] [facility] Charges PT Eval Moderate Complexity : 1 OSKAR MARTÍNEZ, PT - 06/27/2019 11:41 EDT Electronically signed by Chantal [facility] Conversion Director Of Golf Cerner at 06/16/2022 8:02 PM CDT documented in this encounter Plan of Treatment Not on file documented as of this encounter Visit Diagnoses Not on filedocumented in this encounter
--- OUTSIDE RECORDS SUMMARY | 2024-08-09 13:21 | XMS_ITS | Encounter Summary ---
Author Organization [employer] Address [address] [place] [address] Care Team Providers Care Grass Cutter Name Role Phone Unavailable Primary Care Provider Unavailabl e Encounter Details Date Type Department Care Team (Late st Contact Info) Description 07/10/2019 Transcribed Document [facility] [place] Family Medicine [address] [place] [address] ProviderMariela MD [address] [place], [place] [id number] Social History Tobacco Use Types Packs/Day Years [...] Conversion Note - Historical ProviderMD - 07/10/2019 2:00 AM CDT Separator Inserter Details Entered On: 07/10/2019 3:21 EDT Performed On: 07/10/2019 2:00 EDT by Bibi Gallagher, EDDIE Order Details Transport Mode Order Detail : Stretcher/Gurney Isolation Precautions Order Detail : Standard Precautions Order Detail : N/A IV Order Detail : 0 Oxygen Order Detail : 0 Nurse Collect Order Detail : 1 Lift/Transfer : Moderate assist Central Line Order Detail : Yes Room Service : Appropriate Arterial Line : No Bibi Gallagher, EDDIE - 07/10/2019 3:21 EDT documented in this encounter Plan of Treatment Not on file documented as of this encounter Visit Diagnoses Not on filedocumented in this encounter
--- OUTSIDE RECORDS SUMMARY | 2024-08-09 13:21 | XMS_ITS | Encounter Summary ---
Author Organization [employer] Address [address] [place] [address] Care Team Providers Care Cable Installer Repairer Name Role Phone Unavailable Primary Care Provider Unavailabl e Encounter Details Date Type Department Care Team (Late st Contact Info) Description 07/19/2019 Transcribed Document [facility] [place] Family Medicine [facility] [address] ProviderMariela MD [facility] [address] Social History Tobacco Use Types [...] Conversion Note - Historical ProviderMD - 07/19/2019 9:00 AM CDT Pain Assessment Entered On: 07/19/2019 9:43 EDT Performed On: 07/19/2019 9:50 EDT by Marisela Rangel RN Intervention Information: indomethacin Performed by Marisela Rangel RN on 07/19/2019 08:50:00 EDT indomethacin,25mg Oral Pain Assessment Pain Assessment : Follow-up assessment Pain Scale Goal : 3 Pain Scale Used : 0-10 Scale Pain Improved by Intervention : Yes Marisela Rangel RN - 07/19/2019 9:43 EDT Pain Scale Intensity : 3 Marisela Rangel RN - 07/19/2019 9:43 EDT Image 4 - Images currently included in the form version of this document have not been included in the text rendition version of the form. Electronically signed by Interface, Sjh Conversion Software Installation Engineer Cerner at 06/16/2022 8:30 PM CDT documented in this encounter Plan of Treatment Not on file documented as of this encounter Visit Diagnoses Not on filedocumented in this encounter
--- OUTSIDE RECORDS SUMMARY | 2024-08-09 13:21 | XMS_ITS | Encounter Summary ---
Author Organization [employer] Address [address] [place] [address] Care Team Providers Care Able Bodied Tankerman Name Role Phone Unavailable Primary Care Provider Unavailabl e Encounter Details Date Type Department Care Team (Late st Contact Info) Description 06/26/2019 Transcribed Document [facility] [place] Family Medicine [address] [place] [address] ProviderMariela MD [address] [place] [address] Social History Tobacco Use Types Packs/Day Years [...] Conversion Note - Historical ProviderMD - 06/26/2019 11:03 AM CDT Stroke/Warfarin Instructions Entered On: 06/26/2019 11:03 EDT Performed On: 06/26/2019 11:03 EDT by Anika Clark RN Stroke/Warfarin Instructions Stroke/TIA Discharge Ins : N/A Warfarin Discharge Ins : N/A Anika Clark RN - 06/26/2019 11:03 EDT documented in this encounter Plan of Treatment Not on file documented as of this encounter Visit Diagnoses Not on filedocumented in this encounter
--- OUTSIDE RECORDS SUMMARY | 2024-08-09 13:21 | XMS_ITS | Encounter Summary ---
Author Organization [employer] Address [address] [place] [address] Care Team Providers Care Scrap Metal Burner Name Role Phone Unavailable Primary Care Provider Unavailabl e Encounter Details Date Type Department Care Team (Late st Contact Info) Description 07/19/2019 Transcribed Document [facility] [place] [address] [place] [address] ProviderMariela MD [address] [place] [address] Social History Tobacco Use Types Packs/Day Years [...] Conversion Note - Historical ProviderMD - 07/19/2019 2:14 PM CDT Nursing Discharge Summary Entered On: 07/19/2019 14:14 EDT Performed On: 07/19/2019 14:14 EDT by Marisela Rangel, ballet company member Documentation Discharge Date/Time : 07/19/2019 14:14 EDT Patient Disposition, General : Discharge Discharge To : Assisted living Education Comment : needs reminders and reassurance Marisela Rangel RN - 07/19/2019 14:14 EDT documented in this encounter Plan of Treatment Not on file documented as of this encounter Visit Diagnoses Not on filedocumented in this encounter
--- OUTSIDE RECORDS SUMMARY | 2024-08-09 13:21 | XMS_ITS | Encounter Summary ---
Author Organization [employer] Address [address] [place] [address] Care Team Providers Care Winder Helper Name Role Phone Unavailable Primary Care Provider Unavailabl e Encounter Details Date Type Department Care Team (Late st Contact Info) Description 08/26/2018 Transcribed Document [facility] [place] [address] [place] [address] ProviderMariela MD [address] [place], [place] [phone] Social History Tobacco Use Types Packs/Day Years Used Date Smoking Tobacco: Never Assessed Comments Unknown Sex and Gender Information Value Date Recorded Sex Assigned at Female 09/02/2021 8:57 PM CDT Legal Sex Female 6:58 PM CDT Gender Identity Female 09/02/2021 8:57 PM CDT Sexual Orientation Not on file documented as of this encounter Miscellaneous Notes * [employer] Conversion Note - Historical ProviderMD - 08/26/2018 5:00 AM CDT Chart Check - Review Order Profile Entered On: 08/26/2018 3:14 EDT Performed On: 08/26/2018 5:00 EDT by Kamini Sullivan RN Chart Check Powerplans Initiated/Discontinued as Appropriate : Yes All Active Orders Reviewed : Yes Kamini Sullivan RN - 08/26/2018 3:14 EDT documented in this encounter Plan of Treatment Not on file documented as of this encounter Visit Diagnoses Not on filedocumented in this encounter
--- OUTSIDE RECORDS SUMMARY | 2024-08-09 13:21 | XMS_ITS | Encounter Summary ---
Author Organization [employer] Address [address] [place] [address] Care Team Providers Care Farm Machine Operator Name Role Phone Unavailable Primary Care Provider Unavailabl e Encounter Details Date Type Department Care Team (Late st Contact Info) Description 07/10/2019 Transcribed Document [facility] [place] Family Medicine [address] [place] [address] ProviderMariela MD [address] [place] [address] Social History Tobacco Use Types Packs/Day Years [...] Conversion Note - Historical ProviderMD - 07/10/2019 10:18 AM CDT Attempt to Treat, PT Entered On: 07/10/2019 15:29 EDT Performed On: 07/10/2019 10:18 EDT by CORI NELSON PT Attempt to Treat Unable to Treat Due To : Patient Refusal Inability to Treat Comment : pt declined PTx this AM, had JUST gotten up to chair with TAX EXPERT assist and did not feel she wanted to put any more pressure on my foot pt c/o R ankle pain, NOTED SIGNIFICANT EDEMA Notification : RN(Marisela)/PTx/OTx CORI NELSON, PT - 07/10/2019 15:28 EDT Electronically signed by Chantal [facility] Conversion Force Adjustment Supervisor Cerner at 06/16/2022 8:08 PM CDT documented in this encounter Plan of Treatment Not on file documented as of this encounter Visit Diagnoses Not on filedocumented in this encounter
--- OUTSIDE RECORDS SUMMARY | 2024-08-09 13:21 | XMS_ITS | Encounter Summary ---
Author Organization [employer] Address [address] [place] [address] Care Team Providers Care Sales And Training Specialist Name Role Phone Unavailable Primary Care Provider Unavailabl e Encounter Details Date Type Department Care Team (Late st Contact Info) Description 08/27/2018 Transcribed Document [facility] [place] [address] [place] [address] ProviderMariela MD [address] [id number] Social History Tobacco Use Types Packs/Day Years Used Date Smoking Tobacco: Never Assessed Comments Unknown Sex and Gender Information Value Date Recorded Sex Assigned at Female 09/02/2021 8:57 PM CDT Legal Sex Female 6:58 PM CDT Gender Identity Female 09/02/2021 8:57 PM CDT Sexual Orientation Not on file documented as of this encounter Miscellaneous Notes * [employer] Conversion Note - Historical ProviderMD - 08/27/2018 3:00 PM CDT Pain Assessment Entered On: 08/27/2018 18:20 EDT Performed On: 08/27/2018 15:34 EDT by SWATI TOLEDO RN Intervention Information: acetaminophen Performed by SWATI TOLEDO RN on 08/27/2018 14:34:00 EDT acetaminophen,1000mg Oral Pain Assessment Pain Assessment : Follow-up assessment Pain Scale Goal : 3 SWATI TOLEDO RN - 08/27/2018 18:20 EDT documented in this encounter Plan of Treatment Not on file documented as of this encounter Visit Diagnoses Not on filedocumented in this encounter
--- OUTSIDE RECORDS SUMMARY | 2024-08-09 13:21 | XMS_ITS | Encounter Summary ---
Author Organization [employer] Address [address] [place] [address] Care Team Providers Care Tree Expert Name Role Phone Unavailable Primary Care Provider Unavailabl e Encounter Details Date Type Department Care Team (Late st Contact Info) Description 08/23/2020 Transcribed Document [facility] [place] [facility] [place] [address] ProviderMariela MD [address] [place] [address] Social History Tobacco Use Types Packs/Day [...] Conversion Note - Historical ProviderMD - 08/23/2020 9:00 PM CDT Pain Assessment Entered On: 08/23/2020 23:35 EDT Performed On: 08/23/2020 22:14 EDT by Rayna Carrizales Rn Intervention Information: acetaminophen Performed by Rayna Carrizales Rn on 08/23/2020 21:14:00 EDT acetaminophen,1000mg Oral Pain Assessment Pain Assessment : Follow-up assessment Pain Scale Goal : 3 Pain Scale Used : 0-10 Scale Pain Improved by Intervention : Yes Rayna Carrizales Rn - 08/23/2020 23:35 EDT Pain Scale Intensity : 3 Rayna Carrizales Rn - 08/23/2020 23:35 EDT Image 4 - Images currently included in the form version of this document have not been included in the text rendition version of the form. documented in this encounter Plan of Treatment Not on file documented as of this encounter Visit Diagnoses Not on filedocumented in this encounter
--- OUTSIDE RECORDS SUMMARY | 2024-08-09 13:21 | XMS_ITS | Encounter Summary ---
Author Organization [employer] Address [address] [place] [address] Care Team Providers Care Hand Stonecutter Name Role Phone Unavailable Primary Care Provider Unavailabl e Encounter Details Date Type Department Care Team (Late st Contact Info) Description 08/26/2018 Transcribed Document [facility] Radiology [address] [place] [address] Emely Atkinson MD [address] [place] [address] [address] Social History Tobacco Use Types Packs/Day Years Used Date Smoking Tobacco: Never Assessed Comments Unknown Sex and Gender Information Value Date Recorded Sex Assigned at Female 09/02/2021 8:57 PM CDT Legal Sex Female 6:58 PM CDT Gender Identity Female 09/02/2021 8:57 PM CDT Sexual Orientation Not on file documented as of this encounter Miscellaneous Notes * Cerner Conversion Note - Emely Atkinson MD - 08/26/2018 11:00 AM EDT Patient: SOFIA GILL Age: 78 Years Sex: Female : 1940 Subjective Patient is up in bed Denies pain Had a BM yesterday Tolerating her diet EXAM: General: Alert and oriented, well nourished, no acute distress. Eye: PERRL, EOMI, normal conjunctiva HEENT: Normocephalic, , moist oral mucosa, Neck: Supple, non-tender, Lungs: Clear to auscultation , non-labored respiration Heart: Normal rate, regular rhythm, no edema Abdomen: Soft, non-tender, non-distended, normal bowel sounds, Musculoskeletal: Has scar from recent surgery on right knee with yahaira intact. Has some mild blood tinge drainage (crusting now) from the lower part of wound Mild generalised odema. Skin: Skin is warm, dry and pink Psychiatric: Cooperative, appropriate mood and affect Neurologic: Awake, alert, and oriented Vital Signs T: 36.6 ??C TMIN: 36.4 ??C TMAX: 37.3 ??C HR: 95(Monitored) RR: 18 BP: 154/77 SpO2: 100% Oxygen Settings (Last) Oxygen Therapy Mode: Room air (08/26/18 12:10:00 EDT) Oxygen Flow Rate: 2 Liter/Min (08/22/18 12:40:00 EDT) Intake & Output Totals Last 24 Hours (7a-7a) Input Total: 0 mL Output Total: 600 mL Balance: -600 mL Assessment/Plan Acute kidney injury, resolved 08/25/2018 -Cr normal today Had likely pre renal component Her lisnopril has been resumed now and tolerating Hypertension On lisnopril Her po lasix will be resumed and watch renal function S/p Right Total Knee Arthroplasty by Dr. Epps 08/22/2018 Patient did develop some swelling on right knee wit echymosis US without DVT noted Currently active flexion on hold and patient has knee on foam elevation per ortho direction Further per ortho direction and she is doing bedside exercise now. Morbid obesity will benefit from eventual loss Complicating all aspects of her care Constipation- Miralax and stool softeners PRN, and had a BM on 08/25 Hyperlipidemia- Continue Crestor. Hypothyroidism- Continue Synthroid. SHERRY- Continue CPAP. Asthma- Albuterol PRN. Seasonal Allergies- Continue Levocetirizine. Depression- Continue Cymbalta. DVT ppx per Dr. Epps team: Aspirin 81 mg tabs, 1 BID for 45 days Disposition:Plan for transition to [facility] when ok with ortho Discussed with patient and time spent with above 25 minutes. VTE Prophylaxis - Medical Sequential Compression Device Start: 08/22/18 12:12:00 EDT, Bilateral, Length: Knee High, Continuous Order (NIMO EPPS) Medications Benadryl, 25 mg= 1 Tab, Oral, Q4H, PRN Coenzyme Q10, 50 mg= 1 Cap, Oral, Daily Colace, 100 mg= 1 Cap, Oral, BID Crestor, 10 mg= 1 Tab, Oral, At Bedtime cyanocobalamin, 5000 mcg= 5 Tab, Oral, Daily Cymbalta, 60 mg= 1 Cap, Oral, Daily diphenhydrAMINE, 12.5 mg= 0.5 Tab, Oral, At Bedtime, PRN Dulcolax Laxative, 10 mg= 1 Supp, Rectal, 1-Time, PRN Fleet Enema, 133 mL, Rectal, 1-Time, PRN fluticasone 50 mcg/inh nasal spray, 100 mcg, Nostrils Both, BID, PRN gabapentin, 300 mg= 1 Cap, Oral, At Bedtime glycerin adult rectal suppository, 1 Supp, Rectal, Daily, PRN hydrALAZINE, 10 mg= 0.5 mL, IV Push, Q6H, PRN Keflex, 500 mg= 2 Cap, Oral, Q6HInt lisinopril, 10 mg= 1 Tab, Oral, Daily loratadine, 10 mg= 1 Tab, Oral, Daily metoclopramide, 5 mg= 1 mL, IV Push, Q4H, PRN MiraLax, 17 Gram= 1 Packet, Oral, Daily, PRN multivitamin, 1 Tab, Oral, Daily naloxone, 0.1 mg= 0.25 mL, IV Push, Q5Min, PRN Os-Ramu 500 + D, 1 Tab, Oral, BID oxyCODONE, 10 mg= 2 Tab, Oral, Q4H, PRN oxyCODONE, 5 mg= 1 Tab, Oral, Q4H, PRN Protonix, 40 mg= 1 Tab, Oral, Daily Proventil HFA, 1 Puff, Inhalation, QID, PRN senna, 8.6 mg= 1 Tab, Oral, At Bedtime, PRN Senokot S, 2 Tab, Oral, At Bedtime Synthroid, 100 mcg= 1 Tab, Oral, Daily traMADol, 100 mg= 2 Tab, Oral, Q6H, PRN Tylenol, 1000 mg= 2 Tab, Oral, TID Zofran, 4 mg= 2 mL, IV Push, Q8H, PRN Lab Results Test Name Test Result Date/Time Sodium Level 140 mmol/L 08/26/2018 04:29 EDT Potassium Level 4.4 mmol/L 08/26/2018 04:29 EDT Chloride Level 105 mmol/L 08/26/2018 04:29 EDT Carbon Dioxide Level 31 mmol/L 08/26/2018 04:29 EDT Anion Gap 8 (Low) 08/26/2018 04:29 EDT Glucose Level 116 mg/dL (High) 08/26/2018 04:29 EDT Blood Urea Nitrogen 21 mg/dL 08/26/2018 04:29 EDT Creatinine Level 0.76 mg/dL 08/26/2018 04:29 EDT eGFR >60 mL/min/1.73m2 08/26/2018 04:29 EDT eGFR NonAfrican >60 mL/min/1.73m2 08/26/2018 04:29 EDT Bun/Creatinine 27.6 (High) 08/26/2018 04:29 EDT Calcium Level 7.9 mg/dL (Low) 08/26/2018 04:29 EDT Hgb 9.7 Gram/dL (Low) 08/26/2018 04:29 EDT Hct 30.3 % (Low) 08/26/2018 04:29 EDT documented in this encounter Plan of Treatment Not on file documented as of this encounter Visit Diagnoses Not on filedocumented in this encounter
--- OUTSIDE RECORDS SUMMARY | 2024-08-09 13:21 | XMS_ITS | Encounter Summary ---
Author Organization [employer] Address [address] [place] [address] Care Team Providers Care Service Crew Supervisor Name Role Phone Unavailable Primary Care Provider Unavailabl e Encounter Details Date Type Department Care Team (Late st Contact Info) Description 08/28/2018 Transcribed Document [facility] [place] Family Medicine [address] [place] [address] ProviderMariela MD [address] [place] [address] Social History Tobacco Use Types Packs/Day Years Used Date Smoking Tobacco: Never Assessed Comments Unknown Sex and Gender Information Value Date Recorded Sex Assigned at Female 09/02/2021 8:57 PM CDT Legal Sex Female 6:58 PM CDT Gender Identity Female 09/02/2021 8:57 PM CDT Sexual Orientation Not on file documented as of this encounter Miscellaneous Notes * Cerner Conversion Note - Historical ProviderMD - 08/28/2018 2:00 AM CDT Supervisor Research Shop Details Entered On: 08/28/2018 4:53 EDT Performed On: 08/28/2018 2:00 EDT by Pina Reina RN Order Details Transport Mode Order Detail : Wheelchair Isolation Precautions Order Detail : Standard Precautions Order Detail : N/A IV Order Detail : 1 Oxygen Order Detail : 0 Nurse Collect Order Detail : 0 Lift/Transfer : Moderate assist Central Line Order Detail : No Room Service : Appropriate Arterial Line : No Pina Reina RN - 08/28/2018 4:53 EDT documented in this encounter Plan of Treatment Not on file documented as of this encounter Visit Diagnoses Not on filedocumented in this encounter
--- OUTSIDE RECORDS SUMMARY | 2024-08-09 13:21 | XMS_ITS | Encounter Summary ---
Author Organization [email or web address] Address [address] [place] [address] Care Team Providers Care Retail Field Supervisor Name Role Phone Unavailable Primary Care Provider Unavailabl e Encounter Details Date Type Department Care Team (Late st Contact Info) Description 07/19/2019 Transcribed Document [facility] [place] [address] [place] [address] ProviderMariela MD [address] [place] [address] Social History Tobacco Use Types [...] Conversion Note - Historical ProviderMD - 07/19/2019 9:17 AM CDT Interdisciplinary Rounds Entered On: 07/19/2019 9:17 EDT Performed On: 07/19/2019 9:17 EDT by Daniella Hunt Dietitian Interdisciplinary Rounds Working Summary Patient's Priority Needs : IV abx -> plan 8 wks (about 5 more weeks) then transition to PO PT/OT Brace in place-> dressing changed daily Current DRG/LOS : 560 Aftercare, musculoskeletal & connective tissue 21-25 days Anticipated DC 07/21/2019 Dietitian Interdisciplinary Rounds Note : Regular + ensure daily + magic cup BID 75-100% at all meals LBM 07/17 Daniella Hunt Dietitian - 07/19/2019 9:17 EDT Electronically signed by Maureen Cornejo Conversion Solvent Process Extractor Operator Cerb[employer]ce at 06/16/2022 8:26 PM CDT documented in this encounter Plan of Treatment Not on file documented as of this encounter Visit Diagnoses Not on filedocumented in this encounter
--- OUTSIDE RECORDS SUMMARY | 2024-08-09 13:21 | XMS_ITS | Encounter Summary ---
Author Organization [employer] Address [address] [place] [address] Care Team Providers Care Offal Trimmer Name Role Phone Unavailable Primary Care Provider Unavailabl e Encounter Details Date Type Department Care Team (Late st Contact Info) Description 08/22/2020 Transcribed Document [facility] [place] [facility] [place] [address] ProviderMariela MD [address] [place] [address] Social History Tobacco Use Types [...] Conversion Note - Historical ProviderMD - 08/22/2020 10:00 PM CDT Pain Assessment Entered On: 08/22/2020 23:24 EDT Performed On: 08/22/2020 22:23 EDT by Caitlyn Fallon Rn Intervention Information: traMADol Performed by Caitlyn Fallon Rn on 08/22/2020 21:23:00 EDT traMADol,50mg Oral Pain Assessment Pain Assessment : Follow-up assessment Pain Scale Goal : 3 Pain Scale Used : 0-10 Scale Caitlyn Fallon Rn - 08/22/2020 23:24 EDT Pain Scale Intensity : 0 Caitlyn Fallon Rn - 08/22/2020 23:24 EDT Image 4 - Images currently included in the form version of this document have not been included in the text rendition version of the form. Electronically signed by Interface, Maureen Conversion Computer Systems Security Analyst Cerner at 06/16/2022 8:29 PM CDT documented in this encounter Plan of Treatment Not on file documented as of this encounter Visit Diagnoses Not on filedocumented in this encounter
--- OUTSIDE RECORDS SUMMARY | 2024-08-09 13:21 | XMS_ITS | Encounter Summary ---
Author Organization [employer] Address [address] [place] [address] Care Team Providers Care Convention Planner Name Role Phone Unavailable Primary Care Provider Unavailabl e Encounter Details Date Type Department Care Team (Late st Contact Info) Description 08/23/2020 Transcribed Document [facility] [place] [address] [place] [address] ProviderMariela MD [address] [place] [address] Social History Tobacco Use Types [...] Note - Historical ProviderMD - 08/23/2020 5:00 PM CDT Chart Check - Review Order Profile Entered On: 08/23/2020 18:54 EDT Performed On: 08/23/2020 17:00 EDT by Vidhi Bailey RN Chart Check Powerplans Initiated/Discontinued as Appropriate : Yes All Active Orders Reviewed : Yes Vidhi Bailey RN - 08/23/2020 18:54 EDT documented in this encounter Plan of Treatment Not on file documented as of this encounter Visit Diagnoses Not on filedocumented in this encounter
--- OUTSIDE RECORDS SUMMARY | 2024-08-09 13:21 | XMS_ITS | Encounter Summary ---
Author Organization [employer] Address [address] [place] [address] Care Team Providers Care Para Professional Name Role Phone Unavailable Primary Care Provider Unavailabl e Encounter Details Date Type Department Care Team (Late st Contact Info) Description 06/24/2019 Transcribed Document [facility] [place] [facility] [place] [address] ProviderMariela MD [address] [place] [address] Social History Tobacco Use Types Packs/Day [...] Conversion Note - Historical ProviderMD - 06/24/2019 3:07 PM CDT Patient: SOFIA BARLOW Age: 79 years Sex: Female : 1940 Associated Diagnoses: Chronic venous insufficiency; Osteoarthritis; Sleep apnea; Sepsis; Left prothetic knee infection tests post I&D debridement, washout and poly-exchange I&D , debridement; Hypercholesteremia; Left knee pain; Elevated procalcitonin; Morbid obesity with BMI of 40.0-44.9, adult; Hypothyroid; Hypokalemia; Hyponatremia; GERD (gastroesophageal reflux disease); HTN (hypertension); Encephalopathy , toxic; Leucocytosis; ESR raised; CRP elevated; Cellulitis, unspecified; Left knee cellulitis; Murmur, cardiac; Bacteremia due to group B Streptococcus agalactiae; Acute kidney injury Author: DONNA DRIVER MD-INT Basic Information awake alert comfortable, ???Complaining of sore throat down to her stomach ???Has oral thrush ???We'll start her on Diflucan oral besides using Magic mouthwash ???Has hypoalbuminemia ???We will give her IV albumin infusion 25 mg twice a day ??6 doses ???Leukocytosis continued to improve with current IV antibiotics Review of Systems Constitutional: No fever, No [...] reaction sulfa drugs Itching Current medications: Medications (54) Active Scheduled: (21) #NaCl 0.9% *FLUSH* inj 10 mL 10 mL, IntraCATHeter, Q12H acetaminophen 500 mg tab 1,000 mg 2 Tab, Oral, TID albumin human 25% 25 Gram 100 mL, IV Piggyback, Q12H calcium 500 mg/vit D 200 int unit tab 1 Tab, Oral, BID cefTRIAXone + NaCl 0.9% 50 mL 2 Gram, IV Piggyback, [id number] cyanocobalamin 1,000 mcg tab 5,000 mcg 5 Tab, Oral, Daily docusate sodium 100 mg cap 100 mg 1 Cap, Oral, BID DULoxetine DR 60 mg cap 60 mg 1 Cap, Oral, Daily enoxaparin 40 mg/0.4 mL inj 40 mg 0.4 mL, SubCutaneous, [id number] gabapentin 300 mg cap 300 mg 1 [...] 2 mg 1 Tab, Oral, Daily Continuous: (1) NaCl 0.9% 1,000 mL 1,000 mL, IntraVENous, 100 mL/Hr PRN: (32) acetaminophen 325 mg tab 650 mg 2 Tab, Oral, Q4H acetaminophen/oxyCODONE 325/5 mg tab 1.5 Tab, Oral, Q4H albuterol-ipratropium inh 3 mL 3 mL, Nebulized Inhalation, RT_Q6H ALPRAZolam 0.25 mg tab 0.25 mg 1 Tab, Oral, Q6H alteplase + sterile water 1 mL 1 mg, IntraCATHeter, 1-Time bisacodyl 10 mg supp 10 mg 1 Supp, Rectal, BID calcium gluconate 1 Gram 10 mL, IV Piggyback, Daily calcium gluconate + NaCl 0.9% 100 mL 2 Gram 20 mL, IV Piggyback, Daily calcium gluconate + NaCl 0.9% 100 mL 2 Gram 20 mL, IV Piggyback, Q12H cloNIDine 0.1 mg tab 0.1 mg 1 Tab, Oral, Q4H diphenhydrAMINE 25 mg tab 25 mg 1 Tab, Oral, Q4H diphenhydrAMINE 25 mg tab 12.5 mg 0.5 Tab, Oral, At Bedtime fluticasone 0.05% nasal spray 2 [place], Nostrils Both, BID LORazepam 2 mg/mL inj 0.5 mg 0.25 mL, IntraMuscular, Q4H magnesium hydroxide 8% liq 30 mL 30 mL, Oral, Daily magnesium sulfate 2 Gram 50 mL, IV Piggyback, Daily magnesium sulfate 2 Gram 50 mL, IV Piggyback, Q2H metoclopramide 10 mg/2 mL inj 5 mg 1 mL, IV Push, Q4H Na biphos-Na phos 19 g-7 g enema 133 mL, Rectal, 1-Time naloxone 0.4 mg/1 mL inj 0.1 mg 0.25 mL, IV Push, Q5Min ondansetron 4 mg/2 mL inj 4 mg 2 mL, IV Push, Q8H padimate O Lip balm stick 1 Application, Topical, Q1H phenol 1.4% throat spray 1 [place], Oral, Q2H potassium chloride 10 mEq 100 mL, IV Piggyback, Q1H potassium chloride CR [...] Sleep apnea Physical Examination VS/Measurements Vital Measurements 06/24/2019 14:08 EDT Systolic Blood Pressure 120 mmHg Diastolic Blood Pressure 52 mmHg LOW Mean Arterial Pressure (MAP)-BMDI 68 Temperature Source Oral Temperature Mode Fahrenheit Temperature, Fahrenheit 98.4 Deg F Clinical Temperature, C 36.9 Deg C Heart Rate Monitored 78 bpm Respiratory Rate 14 Breaths/Min Oxygen Saturation 99 % Oxygen Therapy Mode Nasal cannula General: Alert and oriented, No acute distress. [...] Review / Management Results review: All Results 06/24/2019 3:39 EDT Sodium Level 139 mmol/L Potassium Level 4.5 mmol/L Chloride Level 109 mmol/L Carbon Dioxide Level 24 mmol/L Anion Gap 10 Glucose Level 104 mg/dL Blood Urea Nitrogen 16 mg/dL Creatinine Level 0.63 mg/dL eGFR >60 mL/min/1.73m2 eGFR NonAfrican >60 mL/min/1.73m2 Bun/Creatinine 25.4 HI Calcium Level 7.0 mg/dL LOW Protein Total 4.6 Gram/dL LOW Albumin Level 1.5 Gram/dL LOW Globulin 3.1 Gram/dL A/G Ratio 0.5 LOW Bilirubin Total 0.2 mg/dL Alk Phos 77 Units/Liter AST 16 Units/Liter ALT 16 Units/Liter Magnesium Level 2.2 mg/dL Phosphorus 2.5 mg/dL WBC 15.9 K/uL HI RBC 2.92 Million/uL LOW Hgb 9.0 Gram/dL LOW Hct 28.6 % LOW MCV 97.9 fL HI MCH 30.8 pg MCHC 31.5 Gram/dL LOW Platelet Count 413 K/uL HI MPV 8.9 fL LOW RDW 14.0 % Neut % 60.7 % Neut # 9.64 K/uL HI Lymph % 19.4 % Lymph # 3.08 K/uL Traill % 7.4 % Traill # 1.17 K/uL HI Eos % 2.9 % Eos # 0.46 K/uL Baso % 0.6 % Baso # 0.09 K/uL HI Slide Review No IG# 1 x10(3)/uL HI IG% 9 % HI PT 11.4 Second(s) INR 1.1 06/23/2019 2:34 EDT Sodium Level 134 mmol/L LOW Potassium Level 4.8 mmol/L Chloride Level 103 mmol/L Carbon Dioxide Level 28 mmol/L Anion Gap 8 LOW Glucose Level 107 mg/dL HI Blood Urea Nitrogen 28 mg/dL HI Creatinine Level 0.97 mg/dL eGFR >60 mL/min/1.73m2 eGFR NonAfrican 56 mL/min/1.73m2 LOW Bun/Creatinine 28.9 HI Calcium Level 7.4 mg/dL LOW Protein Total 4.8 Gram/dL LOW Albumin Level 1.6 Gram/dL LOW Globulin 3.2 Gram/dL A/G Ratio 0.5 LOW Bilirubin Total 0.2 mg/dL Alk Phos 92 Units/Liter AST 20 Units/Liter ALT 16 Units/Liter WBC 20.4 K/uL HI RBC 3.04 Million/uL LOW Hgb 9.2 Gram/dL LOW Hct 29.0 % LOW MCV 95.4 fL HI MCH 30.3 pg MCHC 31.7 Gram/dL LOW Platelet Count 403 K/uL HI MPV 8.9 fL LOW RDW 14.3 % Neutrophil Percent Man 77 % HI ANC # 16 K/uL NA Lymph Percent Man 16 % LOW ALYC # 3 K/uL NA Traill Percent Man 6 % HI Myelo Percent Man 1 % RBC Morphology Normal Toxic Granulation 1+ Platelet Ct Estimate Increased Slide Review Add Diff Man . Impression and Plan Diagnosis Chronic venous insufficiency - Admitting, Medical. Osteoarthritis - Admitting, Medical. Sleep apnea - Admitting, Medical. Sepsis - Admitting, Medical. Left prothetic knee infection tests post I&D debridement, washout and poly-exchange I&D , debridement - Working, Medical. Hypercholesteremia - Admitting, Medical. Left knee pain - Admitting, Medical. Elevated procalcitonin - Admitting, Medical. Morbid obesity with BMI of 40.0-44.9, adult - Admitting, Medical. Hypothyroid - Admitting, Medical. Hypokalemia - Admitting, Medical. Hyponatremia - Admitting, Medical. GERD (gastroesophageal reflux disease) - Admitting, Medical. HTN (hypertension) - Admitting, Medical. Encephalopathy , toxic - Working, Medical. Leucocytosis - Admitting, Medical. ESR raised - Admitting, Medical. CRP elevated - Admitting, Medical. Cellulitis, unspecified - Admitting. Cellulitis, unspecified - Working. Left knee cellulitis - Admitting, Medical. Murmur, cardiac - Admitting, Medical. Bacteremia due to group B Streptococcus agalactiae - Admitting, Medical. Acute kidney injury - Admitting, Medical. Course: Plan/ cont. current care, pt/ot, encourage oral fluid intake, nutritional support, encourage use of respirometer, motoring blood pressure, renal function, blood glucose, and urine output. Albumin infusion 25 mg twice a day ??6 doses. Started Diflucan. Continue on IV antibiotics as per ID recommendations. Fall risk precautions. Sleep apnea precautions. Stress ulcer prophylaxis. Continue on oral Magic mouthwash. Orders Order Profile (Selected) Inpatient Orders Ordered Diflucan: 100 mg, Oral, Tab, Daily, order duration: 3 Minute(s), Routine, Start 06/25/19 9:00:00 EDT, Stop 06/25/19 9:00:00 EDT, Indication: Candidiasis. documented in this encounter Plan of Treatment Not on file documented as of this encounter Visit Diagnoses Not on filedocumented in this encounter
--- OUTSIDE RECORDS SUMMARY | 2024-08-09 13:21 | XMS_ITS | Encounter Summary ---
Author Organization [employer] Address [address] [place] [address] Care Team Providers Care Payroll Representative Name Role Phone Unavailable Primary Care Provider Unavailabl e Encounter Details Date Type Department Care Team (Late st Contact Info) Description 06/22/2019 Transcribed Document [facility] [place] Family [place] [facility] [place] [address] ProviderMariela MD [place] [address] Social History Tobacco Use Types [...] Conversion Note - Historical ProviderMD - 06/22/2019 3:49 PM CDT Treatment Intervention, PT Entered On: 06/25/2019 13:23 EDT Performed On: 06/25/2019 11:18 EDT by KACIE MAJOR, PT General Information, PT Visit Type, PT : Treatment Note Patient Orders : Order Date Order Ordering 06/19/2019 13:20 Physical Therapy Eval and Treat Ordered By: DONNA DRIVER MD-INT 06/20/2019 13:12 PT Evaluation and Treatment Ordered By: DONNA DRIVER MD-INT 06/21/2019 19:25 PT Evaluation and Treatment Ordered By: SOLOMON MCCRACKEN PA-C 06/21/2019 19:25 PT Treatment Instructions Ordered By: SOLOMON MCCRACKEN PA-C 06/21/2019 19:25 PT Treatment Instructions Ordered By: SOLOMON MCCRACKEN PA-C 06/21/2019 19:25 PT Treatment Instructions Ordered By: SOLOMON MCCRACKEN PA-C 06/22/2019 15:49 PT Additional Treatment Ordered By: MUKUL MARTINEZ, PT Active Diagnoses : 06/24/2019 12:00 Other disorders of plasma-protein metabolism, not elsewhere classified 06/19/2019 12:00 Encephalopathy, unspecified 06/17/2019 12:00 Acute kidney failure, unspecified 06/17/2019 12:00 Bacteremia 06/17/2019 12:00 Cardiac murmur, unspecified 06/17/2019 12:00 Cellulitis, unspecified 06/17/2019 12:00 Elevated C-reactive protein (CRP) 06/17/2019 12:00 Elevated erythrocyte sedimentation rate 06/17/2019 12:00 Elevated white blood cell count, unspecified 06/17/2019 12:00 Essential (primary) hypertension 06/17/2019 12:00 Gastro-esophageal reflux disease without esophagitis 06/17/2019 12:00 Hypo-osmolality and hyponatremia 06/17/2019 12:00 Hypokalemia 06/17/2019 12:00 Hypothyroidism, unspecified 06/17/2019 12:00 Morbid (severe) obesity due to excess calories 06/17/2019 12:00 Other specified abnormal findings of blood chemistry 06/17/2019 12:00 Pain in left knee 06/17/2019 12:00 Pure hypercholesterolemia, unspecified 06/17/2019 12:00 Pyogenic arthritis, unspecified 06/17/2019 12:00 Sepsis, unspecified organism 06/17/2019 12:00 Sleep apnea, unspecified 06/17/2019 12:00 Unspecified osteoarthritis, unspecified site 06/17/2019 12:00 Venous insufficiency (chronic) (peripheral) Therapy Diagnosis, PT : reduced mobility Admission Date : 06/16/2019 21:08 Personal Devices : Personal Devices Glasses Assistive Devices : Assistive Devices No Devices Recorded Precautions in Place : Fall prevention measures, Fall prevention measures, high risk Isolation Maintained : KACIE Valencia, PT - 06/25/2019 13:15 EDT General Status Patient Received Status : Supine in bed, Bed alarm activated, HOB elevated, Other: IV, SCDs, RLE on pillow, SPICA, purewick Treatment Start Time : 06/25/2019 10:58 EDT Patient Left Status : Supine in bed, Bed alarm activated, RN/PCT informed, Communication board completed, All needs met and within reach, Other: All lines intact except purewick that was soiled. NSG was informed RN/PCT Informed Comment : RN Ok'd pt for PTx. She was informed of redness with stool and soiled purewick Treatment End Time : 06/25/2019 11:18 EDT Treatment Time : 20 Minute(s) KACIE MAJOR, PT - 06/25/2019 13:15 EDT Edu Topics Physical Therapy Education Grid Gait Training : Verbalizes understanding Role of Physical Therapy : Verbalizes understanding Transfer Training : Verbalizes understanding KACIE MAJOR, PT - 06/25/2019 13:15 EDT Plan of Care, PT PT Tx Plan/Goals Established w Patient : Yes KACIE MAJOR, PT - 06/25/2019 13:15 EDT Usp Goals Other PT LTG Grid Goal #1 Goal #2 Goal #3 Other : Pt will perform supine to sit with min assist for improvement in functional mobility. Pt will perform sit to stand with min x 2 for improvement in functional mobility. Pt will be able to amb 10' with Rwx and CGA to inc mobility Date to Meet : 06/29/2019 EDT 06/29/2019 EDT 07/09/2019 EDT Goal Status : Progressing, continue Progressing, continue Initial goal KACIE MAJOR, PT - 06/25/2019 13:15 EDT KACIE MAJOR, PT - 06/25/2019 13:15 EDT KACIE MAJOR, PT - 06/25/2019 13:15 EDT Treatment Note Subjective Comment : Pt was agreeable to PT. She states that she about to get an enema so it was agreed to not sit pt [facility] at this time. c/o velcro rubbing wtih gait Patient's Response to Treatment : Fatigue Additional Objective Information : Pt was Mod A x2 for sup to sit due to limitations in brace. She sat EOB with SBA and good balance. Pt was Min/Mod A x2 for sit to stand wtih Gt belt, Rwx, and hands on wx. Pt had dec balance with initial stand that was self-recovered. She was assisted with pericare and che/draw sheet changed while she maintained standing x 2min She took sidesteps along bed ~10' in total with WBAT and fair coordination, No LOB. Pt was CGA x2 for stand to sit with cues to reach back for the bed. She was Max A x2 for sup to sit due to brace. Dep x2 to scoot up in bed. PT/pt talked through options for decreasing rubbing of velcro on brace to R LE. Assessment : Pt has difficulty with sup to sit due to the brace but once up on her feet is able to take some steps. She can continue to benefit from PT to inc mobility Plan for Treatment : Try to use Sanchez wrap to wrap velcro or pull up tube sheath to fold over top of brace to dec irritation with amb. KACIE MAJOR, PT - 06/25/2019 13:15 EDT Pain Assessment Pain Scaled Used : 0-10 Pain scale Pain Score Pre-Intervention : 4 Pain Score During-Intervention : 4 Pain Score Post-Intervention. : 4 KACIE MAJOR, PT - 06/25/2019 13:15 EDT Image 1 - Images currently included in the form version of this document have not been included in the text rendition version of the form. [facility] PT Charges Gait Training Each 15 Min : 1 KACIE MAJOR, PT - 06/25/2019 13:15 EDT documented in this encounter Plan of Treatment Not on file documented as of this encounter Visit Diagnoses Not on filedocumented in this encounter
--- OUTSIDE RECORDS SUMMARY | 2024-08-09 13:21 | XMS_ITS | Encounter Summary ---
Author Organization [employer] Address [address] [place] [address] Care Team Providers Care Heart Nurse Name Role Phone Unavailable Primary Care Provider Unavailabl e Encounter Details Date Type Department Care Team (Late st Contact Info) Description 08/13/2020 Transcribed Document [facility] [place] [facility] [place] [address] ProviderMariela MD [address] [place] [address] Social History Tobacco Use Types Packs/Day [...] Conversion Note - Historical ProviderMD - 08/13/2020 10:24 AM CDT PAT Adult Entered On: 08/13/2020 10:31 EDT Performed On: 08/13/2020 10:24 EDT by BINDU MOREIRA RN Vital Measurements Temperature Source : Temporal artery scanning Temperature Mode : Fahrenheit Temperature, Fahrenheit : 98.2 Deg F Clinical Temperature, C : 36.8 Deg C Peripheral Pulse Rate : 89 bpm Respiratory Rate : 18 Breaths/Min Systolic Blood Pressure : 123 mmHg Diastolic Blood Pressure : 58 mmHg (LOW) Vital Measurements Comment : Oxygen Saturation : 97 % Oxygen Therapy Mode : Room air BINDU MOREIRA RN - 08/13/2020 10:36 EDT Height and Weight, Clinical Dosing Height Source : Stated Height Entry Format : Cascade Height, Feet : 5 ft(Converted to: 152 cm, 60 Inch) Height, Inches : 0 Inch(Converted to: 0 ft 0 Inch, 0.00 cm) Clinical Height : 152.4 cm Weight Source : Standing scale Weight Entry Format : Cascade Clinical Dosing Weight : 90.91 kg Weight, Pounds : 200 lb Body Surface Area (BSA) : 1.87 m2 Body Mass Index : 39.1 kg/m2 (HI) [place] Body Weight : 45 kg BINDU MOREIRA RN - 08/13/2020 10:24 EDT Health Histories Smoking Status : Never (less than 100 in lifetime; none in last 30 days) Smokeless Tobacco Status : Never BINDU MOREIRA RN - 08/13/2020 10:24 EDT Social History (As Of: 08/13/2020 10:31:50 EDT) Tobacco: Smoking Status Never smoker. Used Tobacco, but Quit No. (Last Updated: 10/16/2016 11:53:46 EDT by RUI EMMANUEL RN) Never (less than 100 in lifetime) Smoking Status. Never Smokeless Tobacco Status. (Last Updated: 08/13/2020 10:21:56 EDT by BINDU MOREIRA RN) Alcohol: Alcohol Use History No. (Last Updated: 10/16/2016 11:53:51 EDT by RUI EMMANUEL RN) Alcohol Use History No. (Last Updated: 08/13/2020 10:21:56 EDT by BINDU MOREIRA RN) Substance Abuse: Drug Use Hx: No. Use in Last 12 Months: No. (Last Updated: 10/16/2016 11:53:56 EDT by RUI EMMANUEL RN) Drug Use Hx: No. (Last Updated: 08/13/2020 10:21:56 EDT by BINDU MOREIRA RN) Nutrition/Health: Regular, Caffeine intake amount: occassional. (Last Updated: 10/16/2016 11:54:06 EDT by RUI EMMANUEL RN) Home/Environment: Lives with Alone. Living situation: Home/Independent. Home equipment: Walker/Cane, Wheelchair, shower chair, elevated commode, rolling walker. Alcohol abuse in household: No. Substance abuse in household: No. Smoker in household: No. Injuries/Abuse/Neglect in household: No. Feels unsafe at home: No. Family/Friends available for support: Yes. 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 (Last Updated: 10/16/2016 11:55:14 EDT by RUI MEMANUEL, RN) Infectious Disease History Has the patient ever been tested for COVID-19? : Yes, Patient stated results Negative Date of COVID-19 test known? : No Does patient have symptoms of COVID-19? : No COVID19 Screening : No Experiencing Infectious Disease Symptoms : No symptoms Physical contact outside [place] in the last 30 days : No Infectious Disease History : Chicken pox/Shingles, Measles Tuberculosis Symptoms : None BINDU MOREIRA RN - 08/13/2020 10:24 EDT COVID19 PreProcedure Screening Is this an Emergent or Add on Procedure? : No Date PreProcedure COVID-19 test known? : No Has patient been isolated since the test : N/A - PreProcedure, in-person visit Exposed to COVID19 symptoms since test? : N/A - PreProcedure, in-person visit BINDU MOREIRA RN - 08/13/2020 10:24 EDT Anesthesia/Transfusion History Family History of Anesthesia Reaction : Prior transfusion without reaction Transfusion History : Prior anesthesia without reaction Family History of Anesthesia Reaction : None BINDU MOREIRA RN - 08/13/2020 10:24 EDT Functional Assessment Functional ADL Evaluation Index EBN Bathing : Independent (2) Dressing : Independent (2) Toileting : Independent (2) Transferring Bed or Chair : Independent (2) Continence : Independent (2) Feeding : Independent (2) BINDU MOREIRA RN - 08/13/2020 10:24 EDT ADL Index Score : 12 BINDU MOREIRA RN - 08/13/2020 10:24 EDT Advance Directive Patient has Advance Directive *Q : No, patient refuses Advance Directive information BINDU MOREIRA RN - 08/13/2020 10:24 EDT [place] Suicide Severity Rating Scale (C-SSRS) CSSRS Past Month Wish to be : No CSSRS Past Month Suicidal Thoughts : No CSSRS Lifetime Suicide Behavior : No Suicide Severity Rating Score : 0 Suicide Severity Rating : No Additional Care Required at this time BINDU MOREIRA RN - 08/13/2020 10:24 EDT Psychosocial History Do You Have a History of the Following? : Patient denies history Currently in Unsafe Situation : No BINDU MOREIRA RN - 08/13/2020 10:24 EDT Teaching/Learning Assessment Barriers To Learning : None evident Individuals Taught : Patient Readiness to Learn : Cooperative Readiness to Learn : Explanation, Printed materials BINDU MOREIRA RN - 08/13/2020 10:24 EDT Education Topics, Periop Preadmission Perioperative Education Grid Arrival Time/Place : Verbalizes understanding CHG Preoperative Bathing/Cloths : Verbalizes understanding Infection Control : Verbalizes understanding NPO Status/Directions : Verbalizes understanding Preprocedure Preparations : Verbalizes understanding Preprocedure Tests/Labs : Verbalizes understanding Remove Body Piercings : Verbalizes understanding Responsible Adult : Verbalizes understanding Take/Hold Medications Pre-Procedure : Verbalizes understanding BINDU MOREIRA RN - 08/13/2020 10:24 EDT General Info Preferred Name : Sy Legal Guardian : Gracia Support Person/Patient Tribal Judge : Yes Support Person/Pt Rep Name : Sam Barlow Sy Barlow Contact Password : Keily Support Person/Pt Rep Contact Information : zeinab (Sam) [phone] (Nancy Rust [phone] Want Family/Rep/Phys Notified of Admit : No Emergency Contact #1 : Sam Barlow Emergency Contact #1 Emergency Contact #1 Relationship : son Emergency Contact #2 : - Emergency Contact #2 Phone Number : - Emergency Contact #2 Relationship : - Primary Language : Cook Islander Preferred Communication Mode : Verbal Communication Barrier : None Pasteurizer Helper Needed : BINDU De León RN - 08/13/2020 10:24 EDT Jay Scale Jay Sensory Perception : No impairment Jay Moisture : Rarely moist Jay Activity : Chairfast Jay Mobility : Slightly limited Jay Nutrition : Adequate Jay Friction and Shear : No apparent problem Jay Score : 19 BINDU MOREIRA RN - 08/13/2020 10:24 EDT Sleep Apnea Risk Assmt BiPAP/CPAP Ordered for Home Use : Yes Hx of Obstructive Sleep Apnea Diagnosis : Yes BiPAP/CPAP Used at Home : Yes Age over 50 Years Old : Yes Gender Male : No BINDU MOREIRA RN - 08/13/2020 10:24 EDT documented in this encounter Plan of Treatment Not on file documented as of this encounter Visit Diagnoses Not on filedocumented in this encounter
--- OUTSIDE RECORDS SUMMARY | 2024-08-09 13:21 | XMS_ITS | Encounter Summary ---
Author Organization [employer] Address [address] [place] [id number] Care Team Providers Care Scientific Investigator Name Role Phone Unavailable Primary Care Provider Unavailabl e Encounter Details Date Type Department Care Team (Late st Contact Info) Description 08/27/2018 Transcribed Document [facility] [place] Family Medicine [address] [place] [address] ProviderMariela MD [address], [place] [id number] Social History Tobacco Use Types Packs/Day Years [...] Conversion Note - Historical ProviderMD - 08/27/2018 5:00 AM CDT Chart Check - Review Order Profile Entered On: 08/27/2018 4:31 EDT Performed On: 08/27/2018 5:00 EDT by Peggy Rayo RN Chart Check Powerplans Initiated/Discontinued as Appropriate : Yes All Active Orders Reviewed : Yes Peggy Rayo RN - 08/27/2018 4:31 EDT documented in this encounter Plan of Treatment Not on file documented as of this encounter Visit Diagnoses Not on filedocumented in this encounter
--- OUTSIDE RECORDS SUMMARY | 2024-08-09 13:21 | XMS_ITS | Encounter Summary ---
Author Organization [employer] Address [address] [place] [address] Care Team Providers Care Engineering Officer Name Role Phone Unavailable Primary Care Provider Unavailabl e Encounter Details Date Type Department Care Team (Late st Contact Info) Description 06/25/2019 Transcribed Document [facility] [place] [facility] [place] [address] ProviderMariela MD [address] [place] [address] Social History Tobacco Use Types Packs/Day [...] Conversion Note - Historical ProviderMD - 06/25/2019 9:19 AM CDT On Going Discharge Planning Entered On: 06/25/2019 9:21 EDT Performed On: 06/25/2019 9:19 EDT by Halima Tripathi, EDDIE-REPORTING DEVELOPERadministrative office assistant Progress Note Discharge Arrangements : Patient Post-Acute Information Patient Name: SOFIA GILL Gender: Female : 44 Age: 79 Years No Post-Acute Placement(s) Listed No Post-Acute Service(s) Listed No [place] Referral(s) Listed Discharge Options Discussed with Patient : DME, Home Health, Outpatient services Barriers to Discharge Identified : Clinical Condition of Patient, Follow-Up appointments needed Barriers to Discharge Unresolved : Clinical Condition of Patient, Follow-Up appointments needed Designation of Choice Signed : No Patient Offered Choice/Affiliations Explained : No List/Info Provided Pt/Fam/Support Person : Other: N/A Were Referrals Sent to Post Acute Providers : No Is the Patient Meeting Medical Necessity : Yes Physician Agreeable to Move Forward with D/C Plan? : Yes Did you Attend Multidisciplinary Rounds? : No Halima Tripathi RN-REPORTING DEVELOPER - 06/25/2019 9:19 EDT Narrative Progress Note Narrative Progress Note : RRS Mod @ 50. Per chart review, no MDR this AM: Patient has thrush and has been placed on diflucan for treatment. PICC line in place to LUE. Awaiting bed at [facility]. CM will continue to follow for discharge planning purposes. Historical Progress Note : Per ID note of 06/22: continue ceftriaxone 2 gm daily and plan on 8 weeks of therapy with PICC line in lifelong oral suppression. Otherwise, patient has been accepted by [facility] and we are awaiting bed availability, likely next week. CM will continue to follow. Halima Tripathi RN-REPORTING DEVELOPER - 06/24/19 13:49:26 RECEIVED CALL FROM ALFONSO WITH [facility]..PATIENT HAS BEEN ACCEPTED AND THEY WILL HAVE A BED SOMETIME NEXT WEEK..CM WILL CONTINUE TO FOLLOW AND INFORM DR DRIVER OF THE ABOVE..DEBORAH BENAVIDEZ RN-Creative Writing Professor - 06/23/19 11:45:46 RECEIVED CALL FROM ALFONSO WITH [facility]..PATIENT HAS BEEN ACCEPTED AND THEY WILL HAVE A BED SOMETIME NEXT WEEK..CM WILL CONTINUE TO FOLLOW AND INFORM DR DRIVER OF THE ABOVE..STEPHANIE SPOKE WITH PT AT BEDSIDE AND SHE IS AWARE THAT [facility] HAS STARTED A PRECERT AND [facility] WILL HAVE BED AVAILABLE ON WEDNESDAY PENDING AUTHORIZATION..DR DRIVER AWARE..DEBORAH BENAVIDEZ RN-Creative Writing Professor - 06/23/19 17:11:55 Sent referral to LTACH through [facility]..........MIKE Adam RN-Creative Writing Professor - 06/21/19 16:57:54 Was planning for AKA, now patient will undergo a total joint revision with I&D. 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 Surgery scheduled for today................MIKE Adam RN-Creative Writing Professor - 06/21/19 10:06:05 No MDR this AM with provider. Patient with low-grade fever this AM and throughout the night. COTY was rescheduled for 06/20 for this reason. CM will continue to follow. Halima Tripathi RN-REPORTING DEVELOPER - 06/20/19 11:50:51 Patient becoming more agitated and confused, refusing to wear oxygen. Patient now on CPAP, WBC increased, BC x2 positive for group b Strep. Dr Saenz to perform AKA tomorrow morning. Will continue to follow..............MIKE Adam RN-Creative Writing Professor - 06/19/19 11:35:19 Halima Tripathi RN-REPORTING DEVELOPER - 06/25/2019 9:19 EDT documented in this encounter Plan of Treatment Not on file documented as of this encounter Visit Diagnoses Not on filedocumented in this encounter
--- OUTSIDE RECORDS SUMMARY | 2024-08-09 13:21 | XMS_ITS | Encounter Summary ---
Author Organization [employer] Address [address] [place] [address] Care Team Providers Care Meeting Specialist Name Role Phone Unavailable Primary Care Provider Unavailabl e Encounter Details Date Type Department Care Team (Late st Contact Info) Description 08/23/2020 Transcribed Document [facility] [place] [facility] [place] [address] ProviderMariela MD [address] [place] [address] Social History Tobacco Use Types Packs/Day [...] Conversion Note - Historical ProviderMD - 08/23/2020 2:51 PM CDT Patient: SOFIA GILL Age: 80 years Sex: Female : 1940 Associated Diagnoses: Acute blood loss anemia; Acute kidney injury; Right knee pain; S/p R TKA revision; Status post quadriceps tendon repair; HTN (hypertension); Hypercholesteremia; Hypothyroid; Chronic venous insufficiency; A. fib; Sleep apnea; Obesity (BMI 30-39.9) Author: DONNA DRIVER MD-INT Basic Information awake alert comfortable, Sitting on the chair with PT/OT Still having Castellano catheter Hemoglobin 7 Creatinine 1.53 Transfusion of 2 units of packed RBCs in progress No chest pain or trouble breathing No nausea or vomiting Pending insurance approval for rehab Review of Systems Constitutional: No fever, No chills. Eye: No discharge, No blurring, No double vision, No visual disturbances. Ear/Nose/Mouth/Throat: No nasal congestion, No sore throat. Respiratory: No shortness of breath, No cough. Cardiovascular: No chest pain, No palpitations. Gastrointestinal: No nausea, No vomiting. Genitourinary: No change in urine stream. Musculoskeletal: Right lower extremity in a cast. Integumentary: Negative. Neurologic: Alert and oriented X4. [...] EDT Chloraseptic Menthol 1.4% topical spray: 5 [place], Oral, [place], Q2H, PRN for Sore Throat, Routine, Start [...] for Indigestion, Routine, Start 08/20/20 23:34:00 EDT Phenergan: 12.5 mg, IV Push, Inj, Q6H, PRN for Nausea, Routine, Start 08/20/20 23:34:00 EDT, 08/20/20 23:34:00 EDT Phenergan: 12.5 mg, Oral, Tab, Q6H, PRN for Nausea, Routine, Start 08/20/20 23:34:00 EDT, 08/20/20 23:34:00 EDT Protonix: 40 mg, Oral, [...] EDT fluticasone 50 mcg/inh nasal spray: 2 [place], Nostrils Both, [place], BID, PRN for Allergies, Routine, Start 08/20/20 23:36:00 EDT furosemide: 40 mg, Oral, Tab, Daily, Routine, Start 08/21/20 9:00:00 EDT, 08/20/20 23:36:00 EDT gabapentin: 300 mg, Oral, Cap, At Bedtime, Routine, Start 08/20/20 21:00:00 EDT, 08/20/20 20:53:00 EDT lisinopril: 5 mg, Oral, Tab, Daily, Routine, Start 08/21/20 9:00:00 EDT, 08/20/20 23:36:00 EDT loratadine: 10 mg, Oral, Tab, Daily, [...] Refill(s) fluticasone 50 mcg/inh nasal spray: 2 [place], Nostrils Both, [place], BID, PRN Allergies, 0 Refill(s) furosemide 40 mg oral tablet: 1 Tab, Oral, Daily, 0 Refill(s) lisinopril: 5 mg, Oral, Daily, 0 Refill(s) oxyCODONE: 10 mg, Oral, Q8H, PRN as needed for pain, 0 Refill(s) potassium chloride 20 mEq oral tablet, extended release: 1 Tab, Oral, BID, 0 Refill(s) traMADol: 50 mg, Oral, Q6H, PRN as needed for pain, 0 Refill(s), Medications (43) Active Scheduled: (19) acetaminophen 500 mg tab 1,000 mg 2 [...] 100 mcg 1 Tab, Oral, Daily lisinopril 5 mg tab 5 mg 1 Tab, Oral, Daily loratadine 10 [...] mL 1,000 mL, IntraVENous, 50 mL/Hr PRN: (23) al hydrox/mag hydrox/simeth 30 mL liq 30 [...] Oral, Daily fluticasone 0.05% nasal spray 2 [place], Nostrils Both, BID magnesium hydroxide 8% liq [...] Oral, Q4H phenol 1.4% throat spray 5 [place], Oral, Q2H promethazine 25 mg tab 12.5 mg 0.5 Tab, Oral, Q6H promethazine 25 mg/1 mL inj 12.5 mg 0.5 mL, IV Push, Q6H senna 8.6 mg tab 8.6 mg 1 [...] Sleep apnea Physical Examination VS/Measurements Vital Measurements 08/23/2020 14:20 EDT Systolic Blood Pressure 109 mmHg Diastolic Blood Pressure 56 mmHg LOW Mean Arterial Pressure (MAP)-BMDI 70 Temperature Source Oral Temperature Mode Fahrenheit Temperature, Fahrenheit 98.3 Deg F Clinical Temperature, C 36.8 Deg C Heart Rate Monitored 89 bpm Oxygen Saturation 100 % General: Alert and [...] groin. Musculoskeletal: Left lower extremity in a cast. Integumentary: Warm, Intact, No rash. Neurologic: Alert, Oriented, No focal deficits. Psychiatric: Cooperative, Appropriate mood & affect. Review / Management Results review: All Results 08/23/2020 4:28 EDT Sodium Level 135 mmol/L LOW Potassium Level 5.6 mmol/L HI Chloride Level 100 mmol/L LOW Carbon Dioxide Level 28 mmol/L Anion Gap 13 Glucose Level 98 mg/dL Blood Urea Nitrogen 67 mg/dL HI Creatinine Level 1.53 mg/dL HI eGFR 40 mL/min/1.73m2 LOW eGFR NonAfrican 33 mL/min/1.73m2 LOW Bun/Creatinine 43.8 HI Calcium Level 7.8 mg/dL LOW Protein Total 4.8 Gram/dL LOW Albumin Level 2.2 Gram/dL LOW Globulin 2.6 Gram/dL A/G Ratio 0.8 LOW Bilirubin Total 0.3 mg/dL Alk Phos 55 Units/Liter AST 13 Units/Liter ALT 6 Units/Liter LOW Hgb 7.0 Gram/dL LOW Hct 21.8 % LOW 08/22/2020 4:06 EDT Sodium Level 135 mmol/L LOW Potassium Level 5.7 mmol/L HI Chloride Level 102 mmol/L Carbon Dioxide Level 27 mmol/L Anion Gap 12 Glucose Level 123 mg/dL HI Blood Urea Nitrogen 50 mg/dL HI Creatinine Level 1.41 mg/dL HI eGFR 44 mL/min/1.73m2 LOW eGFR NonAfrican 36 mL/min/1.73m2 LOW Bun/Creatinine 35.5 HI Calcium Level 7.6 mg/dL LOW Hgb 7.4 Gram/dL LOW Hct 23.4 % LOW . Condition: Stable. Impression and Plan [...] renal function, blood glucose, and urine output. Aggressive hydration. Transfuse 2 units of packed RBCs. Fall risk precautions. Sleep apnea precaution. Stress ulcer prophylaxis. DC Castellano catheter and may use per week catheter. documented in this encounter Plan of Treatment Not on file documented as of this encounter Visit Diagnoses Not on filedocumented in this encounter
--- OUTSIDE RECORDS SUMMARY | 2024-08-09 13:21 | XMS_ITS | Encounter Summary ---
Author Organization [email or web address] Address [address] [place] [address] Care Team Providers Care Director Of Recreation Therapy Name Role Phone Unavailable Primary Care Provider Unavailabl e Encounter Details Date Type Department Care Team (Late st Contact Info) Description 06/22/2019 Transcribed Document [facility] [place] [facility] [place] [address] [place] [address] ProviderMariela MD [address] [place] [address] Social History Tobacco Use Types Packs/Day Years [...] Conversion Note - Historical ProviderMD - 06/22/2019 10:00 PM CDT Patch Check Entered On: 06/23/2019 4:15 EDT Performed On: 06/22/2019 22:00 EDT by Nemo Macario, RN Patch Check Patch Check Result : No Patch Check - Type of Patch : scopolamine (Transderm-Scop) Nemo Macario, RN - 06/23/2019 4:15 EDT Electronically signed by Maureen Cornejo Conversion Senior Mechanical Development Engineer Cerner at 06/16/2022 8:15 PM CDT documented in this encounter Plan of Treatment Not on file documented as of this encounter Visit Diagnoses Not on filedocumented in this encounter
--- OUTSIDE RECORDS SUMMARY | 2024-08-09 13:21 | XMS_ITS | Encounter Summary ---
Author Organization [employer] Address [address] [place] [address] Care Team Providers Care Log Processor Operator Name Role Phone Unavailable Primary Care Provider Unavailabl e Encounter Details Date Type Department Care Team (Late st Contact Info) Description 07/10/2019 Transcribed Document [facility] [place] [address] [place] [address] ProviderMariela MD [address] [place], [place] [id number] Social History Tobacco Use Types Packs/Day Years [...] Conversion Note - Historical ProviderMD - 07/10/2019 3:24 PM CDT Attempt to Treat, OT Entered On: 07/10/2019 15:25 EDT Performed On: 07/10/2019 15:24 EDT by AYDEE LARSON OTR/Bartolo Attempt to Treat Unable to Treat Due To : Patient Refusal Inability to Treat Comment : Refused AM ankle pain and brace pain AYDEE LARSON OTR/Bartolo - 07/10/2019 15:24 EDT Electronically signed by Maureen Cornejo Conversion Switch Operators Supervisor Cerbryce at 06/16/2022 8:05 PM CDT documented in this encounter Plan of Treatment Not on file documented as of this encounter Visit Diagnoses Not on filedocumented in this encounter
--- OUTSIDE RECORDS SUMMARY | 2024-08-09 13:21 | XMS_ITS | Encounter Summary ---
Author Organization [employer] Address [address] [place] [address] Care Team Providers Care Finding Fastener Name Role Phone Unavailable Primary Care Provider Unavailabl e Encounter Details Date Type Department Care Team (Late st Contact Info) Description 06/22/2019 Transcribed Document [facility] [place] [facility] [place] [address] ProviderMariela MD [facility] [place] [address] Social History Tobacco Use Types [...] Conversion Note - Historical ProviderMD - 06/22/2019 12:53 PM CDT Patient: SOFIA GILL Age: 79 Years Sex: Female : 1940 Assessment/Plan POD #1 s/p Left TKA Revision and I&D for infected joint--Patient's pain is well controlled. Pull drains tomorrow. Strictly keep KI on all times. Patient needs to be bed rest only until large brace fitted by bracing company. She has complex extensor mechanism repair at high risk for disruption. Continue ABX coverage per ID VTE Prophylaxis - Medical Heparin 5,000 Units, SubCutaneous, Inj, Q8H, Routine, Start 06/18/19 6:05:00 EDT (DONNA DRIVER) Sequential Compression Device Start: 06/21/19 19:25:00 EDT, Bilateral, Length: Knee High, Continuous Order (SOLOMON MCCRACKEN PA-C) Sequential Compression Device Start: 06/16/19 21:25:00 EDT, Bilateral, Length: Knee High, While patient is in bed, Continuous Order (DONNA DRIVER) Subjective Patient's pain well controlled, no complaints. Vital Signs T: 36.7 ??C TMIN: 36.3 ??C TMAX: 37.8 ??C HR: 83(Monitored) RR: 18 BP: 116/70 SpO2: 100% Oxygen Settings (Last) Oxygen Therapy Mode: Nasal cannula (06/22/19 12:48:00) Oxygen Flow Rate: 2 Liter/Min (06/22/19 12:48:00) Intake & Output Totals Last 24 Hours (7a-7a) Input Total: 1441 mL Output Total: 1075 mL Balance: 366 mL Physical Exam Brace, dressing c/d/i Mild knee swelling noted SILT throughout the extremity including 1st and 4th webspace TA,GAS firing Palpable Pulses for DP/PT Compartments of the leg soft/compressible Medications alteplase + sterile water 1 mL aspirin, 81 mg= 1 Tab, Oral, BID Ativan, 0.5 mg= 0.25 mL, IntraMuscular, Q4H, [...] PRN Chloraseptic Menthol 1.4% topical spray, 1 [place], Oral, Q2H, PRN cloNIDine, 0.1 mg= 1 Tab, Oral, Q4H, PRN Coenzyme Q10, 50 mg= 1 Cap, Oral, Daily Colace, 100 mg= 1 Cap, Oral, BID Crestor, 10 mg= 1 Tab, Oral, At Bedtime cyanocobalamin, 5000 mcg= 5 Tab, Oral, Daily Cymbalta, 60 mg= 1 Cap, Oral, Daily Dilaudid, 0.5 mg= 0.5 mL, IV Push, Q2H, PRN Dulcolax Laxative, 10 mg= 1 Supp, Rectal, BID, PRN Dulcolax Laxative, 10 mg= 1 Supp, Rectal, 1-Time, PRN DuoNeb 0.5 mg-2.5 mg/3 mL inhalation solution, 3 mL, Nebulized Inhalation , RT_Q6H, PRN Fleet Enema, 133 mL, Rectal, 1-Time, PRN Florastor, 250 mg= 1 Cap, Oral, Daily fluticasone 50 mcg/inh nasal spray, 2 [place], Nostrils Both, BID, PRN gabapentin, 300 mg= 1 Cap, Oral, At Bedtime, PRN gabapentin, 300 mg= 1 Cap, Oral, At Bedtime heparin, 5000 Units= 1 mL, SubCutaneous, Q8H lidocaine 1% preservative-free injectable solution, 10 mL, IntraArtiCULAR, 1-Time lisinopril, 10 mg= 1 Tab, Oral, Daily loratadine, 10 mg= 1 Tab, Oral, Daily magnesium sulfate, 2 Gram= 50 mL, IV Piggyback, Daily, PRN magnesium sulfate, 2 Gram= 50 mL, IV Piggyback, Q2H, PRN metoclopramide, 5 mg= 1 mL, IV Push, Q4H, PRN midazolam, 1 mg= 1 mL, IV Push, 1-Time Milk of Magnesia 8% oral suspension, 30 mL, Oral, Daily, PRN MiraLax, 17 Gram= 1 Packet, Oral, Daily multivitamin, 1 Tab, Oral, Daily naloxone, 0.1 mg= 0.25 mL, IV Push, Q5Min, PRN Normal Saline Flush, 10 mL, IntraCATHeter, Q12H oxyCODONE, 15 mg= 1 Tab, Oral, Q4H, PRN oxyCODONE, 20 mg= 4 Tab, Oral, Q4H, PRN potassium chloride 10 [...] Senokot S, 2 Tab, Oral, At Bedtime Sodium Chloride 0.9% intravenous solution 1,000 mL, 1000 mL, IntraVENous sodium phosphate sodium phosphate Synthroid, 100 mcg= 1 Tab, Oral, Daily traMADol, 100 mg= 2 Tab, Oral, Q6H, PRN tranexamic acid 1,000 mg + syringe 1 Each + Sodium Chloride 0.9% intravenous solution 20 mL Transderm-Scop 1.5 mg transdermal film, extended release, 1 Patch, TransDermal, Q3Days, PRN traZODone, 50 mg= 1 Tab, Oral, At Bedtime, PRN Tylenol, 650 mg= 2 Tab, Oral, Q4H, PRN Tylenol, 1000 mg= 2 Tab, Oral, TID Xanax, 0.25 mg= 1 Tab, Oral, Q6H, PRN Zofran, 4 mg= 2 mL, IV Push, Q8H, PRN Lab Results Test Name Test Result Date/Time Sodium Level 136 mmol/L 06/22/2019 02:40 EDT Potassium Level 4.5 mmol/L 06/22/2019 02:40 EDT Chloride Level 103 mmol/L 06/22/2019 02:40 EDT Carbon Dioxide Level 27 mmol/L 06/22/2019 02:40 EDT Anion Gap 10 06/22/2019 02:40 EDT Glucose Level 101 mg/dL 06/22/2019 02:40 EDT Blood Urea Nitrogen 21 mg/dL 06/22/2019 02:40 EDT Creatinine Level 0.63 mg/dL 06/22/2019 02:40 EDT eGFR >60 mL/min/1.73m2 06/22/2019 02:40 EDT eGFR NonAfrican >60 mL/min/1.73m2 06/22/2019 02:40 EDT Bun/Creatinine 33.3 (High) 06/22/2019 02:40 EDT Calcium Level 7.1 mg/dL (Low) 06/22/2019 02:40 EDT Protein Total 4.4 Gram/dL (Low) 06/22/2019 02:40 EDT Albumin Level 1.4 Gram/dL (Low) 06/22/2019 02:40 EDT Globulin 3.0 Gram/dL 06/22/2019 02:40 EDT A/G Ratio 0.5 (Low) 06/22/2019 02:40 EDT Bilirubin Total 0.2 mg/dL 06/22/2019 02:40 EDT Alk Phos 103 Units/Liter 06/22/2019 02:40 EDT AST 25 Units/Liter 06/22/2019 02:40 EDT ALT 16 Units/Liter 06/22/2019 02:40 EDT WBC 24.5 K/uL (High) 06/22/2019 02:40 EDT RBC 2.47 Million/uL (Low) 06/22/2019 02:40 EDT Hgb 7.5 Gram/dL (Low) 06/22/2019 02:40 EDT Hgb 7.5 Gram/dL (Low) 06/22/2019 02:40 EDT Hgb 8.4 Gram/dL (Low) 06/21/2019 15:53 EDT Hct 23.7 % (Low) 06/22/2019 02:40 EDT Hct 23.7 % (Low) 06/22/2019 02:40 EDT Hct 26.3 % (Low) 06/21/2019 15:53 EDT MCV 96.0 fL (High) 06/22/2019 02:40 EDT MCH 30.4 pg 06/22/2019 02:40 EDT MCHC 31.6 Gram/dL (Low) 06/22/2019 02:40 EDT Platelet Count 416 K/uL (High) 06/22/2019 02:40 EDT MPV 8.9 fL (Low) 06/22/2019 02:40 EDT RDW 13.0 % 06/22/2019 02:40 EDT Neutrophil Percent Man 86 % (High) 06/22/2019 02:40 EDT ANC # 21 K/uL 06/22/2019 02:40 EDT Lymph Percent Man 4 % (Low) 06/22/2019 02:40 EDT ALYC # 1 K/uL 06/22/2019 02:40 EDT [place] Percent Man 6 % (High) 06/22/2019 02:40 EDT [place] Percent Man 3 % (High) 06/22/2019 02:40 EDT [place] Percent Man 2 % (High) 06/22/2019 02:40 EDT RBC Morphology Normal 06/22/2019 02:[address] Estimate Adequate 06/22/2019 02:40 EDT Body Fluid Type Synovial fluid 06/21/2019 12:55 EDT Color BF Red 06/21/2019 12:55 EDT Appearance BF Bloody 06/21/2019 12:55 EDT [place] [address] /uL (High) 06/21/2019 12:55 EDT Auto RBC BF 316508 /uL (High) 06/21/2019 12:55 EDT Neutrophils Body Fluid 99 % 06/21/2019 12:55 EDT Lymphocytes Body Fluid 1 % (Low) 06/21/2019 12:55 EDT RBC Product Ready 06/22/2019 05:51 EDT RBC Product Ready RBC Ready 06/22/2019 05:27 EDT # of Units 2 06/22/2019 05:27 EDT documented in this encounter Plan of Treatment Not on file documented as of this encounter Visit Diagnoses Not on filedocumented in this encounter
--- OUTSIDE RECORDS SUMMARY | 2024-08-09 13:21 | XMS_ITS | Encounter Summary ---
Author Organization [employer] Address [address] [place] [address] Care Team Providers Care Numerical Control Lathe Operator Name Role Phone Unavailable Primary Care Provider Unavailabl e Encounter Details Date Type Department Care Team (Late st Contact Info) Description 07/19/2019 Transcribed Document [facility] [place] [address] [place] [address] ProviderMariela MD [address] [place] [address] Social History Tobacco Use Types Packs/Day Years [...] Conversion Note - Historical ProviderMD - 07/19/2019 11:44 AM CDT JUDITH Entered On: 07/19/2019 11:45 EDT Performed On: 07/19/2019 11:44 EDT by DONNA DRIVER MD-INT JUDITH Indication of use for OOCS : Acute Illness OOCS Misuse Suspected : Other Was JUDITH queried : Other Patient Advised to seek OOCS Treatment : Other Treatment to Include Limited Supply of OOCS : Other JUDITH Result : Other JUDITH Other Notes : As per referring facility medical records Patient cancelled on OOCS : Other JUDITH : . DONNA DRIVER MD-INT - 07/19/2019 11:44 EDT Electronically signed by Chantal [facility] Conversion Document Control Coordinator Cerner at 06/16/2022 8:13 PM CDT documented in this encounter Plan of Treatment Not on file documented as of this encounter Visit Diagnoses Not on filedocumented in this encounter
--- OUTSIDE RECORDS SUMMARY | 2024-08-09 13:21 | XMS_ITS | Encounter Summary ---
Author Organization [employer] Address [address] [place] [address] Care Team Providers Care Finance Broker Name Role Phone Unavailable Primary Care Provider Unavailabl e Encounter Details Date Type Department Care Team (Late st Contact Info) Description 07/10/2019 Transcribed Document [facility] [place] [address] [place] [address] ProviderMariela MD [address] [place] [address] Social History Tobacco Use Types Packs/Day Years [...] Conversion Note - Historical ProviderMD - 07/10/2019 9:00 PM CDT Patch Check Entered On: 07/10/2019 21:01 EDT Performed On: 07/10/2019 21:00 EDT by Georgina Olivo RN Patch Check Patch Check Result : No Patch Check - Type of Patch : No Patch Found Georgina Olivo RN - 07/10/2019 21:01 EDT Electronically signed by Maureen Cornejo Conversion Partnership Marketing Manager Cerner at 06/16/2022 8:06 PM CDT documented in this encounter Plan of Treatment Not on file documented as of this encounter Visit Diagnoses Not on filedocumented in this encounter
--- OUTSIDE RECORDS SUMMARY | 2024-08-09 13:21 | XMS_ITS | Encounter Summary ---
Author Organization [facility] [employer] Address [address] [place] [address] Care Team Providers Care Food Assembler Name Role Phone Unavailable Primary Care Provider Unavailabl e Encounter Details Date Type Department Care Team (Late st Contact Info) Description 06/22/2019 Transcribed Document [place] Family Medicine [address] [place] [address] ProviderMariela MD [address], [place] [id number] Social History Tobacco Use Types Packs/Day Years [...] Note - Historical ProviderMD - 06/22/2019 5:00 PM CDT Chart Check - Review Order Profile Entered On: 06/22/2019 18:02 EDT Performed On: 06/22/2019 17:00 EDT by Moni George Rn Chart Check Powerplans Initiated/Discontinued as Appropriate : Yes All Active Orders Reviewed : Yes Moni George Rn - 06/22/2019 18:02 EDT documented in this encounter Plan of Treatment Not on file documented as of this encounter Visit Diagnoses Not on filedocumented in this encounter
--- OUTSIDE RECORDS SUMMARY | 2024-08-09 13:21 | XMS_ITS | Encounter Summary ---
Author Organization [employer] Address [address] [place] [address] Care Team Providers Care Hosiery Bagger Name Role Phone Unavailable Primary Care Provider Unavailabl e Encounter Details Date Type Department Care Team (Late st Contact Info) Description 08/24/2020 Transcribed Document [facility] [place] [facility] [place] [address] ProviderMariela MD [address] [id number] Social History Tobacco Use Types Packs/Day Years Used Date Smoking Tobacco: Never Assessed Comments Unknown Sex and Gender Information Value Date Recorded Sex Assigned at Female 09/02/2021 8:57 PM CDT Legal Sex Female 6:58 PM CDT Gender Identity Female 09/02/2021 8:57 PM CDT Sexual Orientation Not on file documented as of this encounter Miscellaneous Notes * Cerner Conversion Note - Historical ProviderMD - 08/24/2020 2:00 AM CDT Swatch Checker Details Entered On: 08/24/2020 1:19 EDT Performed On: 08/24/2020 2:00 EDT by Rayna Carrizales, Rn Order Details Transport Mode Order Detail : Bed (including specialty) Isolation Precautions Order Detail : Standard Precautions Order Detail : N/A IV Order Detail : 0 Oxygen Order Detail : 1 Nurse Collect Order Detail : 0 Lift/Transfer : Maximal assist Central Line Order Detail : Yes Room Service : Not Appropriate Arterial Line : No Patient Needs Meds Crushed/Liquid : No Rayna Carrizales, Rn - 08/24/2020 1:19 EDT documented in this encounter Plan of Treatment Not on file documented as of this encounter Visit Diagnoses Not on filedocumented in this encounter
--- OUTSIDE RECORDS SUMMARY | 2024-08-09 13:21 | XMS_ITS | Encounter Summary ---
Author Organization [employer] Address [address] [place] [address] Care Team Providers Care Grey Inspector Name Role Phone Unavailable Primary Care Provider Unavailabl e Encounter Details Date Type Department Care Team (Late st Contact Info) Description 08/23/2020 Transcribed Document [facility] [place] [facility] [place] [address] ProviderMariela MD [facility] [place] [address] Social History Tobacco Use Types [...] Note - Historical ProviderMD - 08/23/2020 2:00 AM CDT Health Safety Specialist Details Entered On: 08/23/2020 0:04 EDT Performed On: 08/23/2020 2:00 EDT by Caitlyn Fallon Rn Order Details Transport Mode Order Detail : Bed (including specialty) Isolation Precautions Order Detail : Standard Precautions Order Detail : N/A IV Order Detail : 0 Oxygen Order Detail : 1 Nurse Collect Order Detail : 0 Lift/Transfer : Maximal assist Central Line Order Detail : Yes Room Service : Not Appropriate Arterial Line : No Patient Needs Meds Crushed/Liquid : No Caitlyn Fallon Rn - 08/23/2020 0:03 EDT Electronically signed by Maureen Cornejo Conversion Associate Of Science In Nursing Cerner at 06/16/2022 8:26 PM CDT documented in this encounter Plan of Treatment Not on file documented as of this encounter Visit Diagnoses Not on filedocumented in this encounter
--- OUTSIDE RECORDS SUMMARY | 2024-08-09 13:21 | XMS_ITS | Encounter Summary ---
Author Organization [employer] Address [address] [place] [address] Care Team Providers Care Media Center Specialist Name Role Phone Unavailable Primary Care Provider Unavailabl e Encounter Details Date Type Department Care Team (Late st Contact Info) Description 06/25/2019 Transcribed Document [facility] [place] Family Medicine [facility] [place] [address] ProviderMariela MD [address] [place] [id number] Social History Tobacco Use Types Packs/Day [...] Cerner Conversion Note - Mariela ProviderMD - 06/25/2019 10:57 PM CDT Patient: SOFIA BARLOW Age: 79 years Sex: Female : 1940 Associated Diagnoses: Chronic venous insufficiency; Osteoarthritis; Sleep apnea; Sepsis; Left prothetic knee infection tests post I&D debridement, washout and poly-exchange I&D , debridement; Hypercholesteremia; Left knee pain; Elevated procalcitonin; Hyperalbuminemia; Morbid obesity with BMI of 40.0-44.9, adult; Hypothyroid; Hypokalemia; Hyponatremia; GERD (gastroesophageal reflux disease); HTN (hypertension); Encephalopathy , toxic; Leucocytosis; ESR raised; CRP elevated; Cellulitis, unspecified; Left knee cellulitis; Murmur, cardiac; Bacteremia due to group B Streptococcus agalactiae; Acute kidney injury Author: DONNA DRIVER MD-INT Basic Information awake alert comfortable, asympt. , pain under control, -constipation & started on aggressive bowel regimen Review of Systems Constitutional: No fever, No [...] reaction sulfa drugs Itching Current medications: Medications (53) Active Scheduled: (21) #NaCl 0.9% *FLUSH* inj 10 mL 10 mL, IntraCATHeter, Q12H acetaminophen 500 mg tab 1,000 mg 2 Tab, Oral, TID albumin human 25% 25 Gram 100 mL, IV Piggyback, Q12H calcium 500 mg/vit D 200 int unit tab 1 Tab, Oral, BID cefTRIAXone + NaCl 0.9% 50 mL 2 Gram, IV Piggyback, [id number] cyanocobalamin 1,000 mcg tab 5,000 mcg 5 Tab, Oral, Daily docusate sodium 100 mg cap 100 mg 1 Cap, Oral, BID DULoxetine DR 60 mg cap 60 mg 1 Cap, Oral, Daily fluconazole 100 mg tab 100 mg 1 Tab, Oral, Daily gabapentin 300 [...] 1 Tab, Oral, Daily Continuous: (0) PRN: (32) acetaminophen 325 mg tab 650 [...] At Bedtime fluticasone 0.05% nasal spray 2 [place], Nostrils Both, BID LORazepam 2 mg/mL inj [...] Topical, Q1H phenol 1.4% throat spray 1 [place], Oral, Q2H potassium chloride 10 mEq 100 [...] Sleep apnea Physical Examination VS/Measurements Vital Measurements 06/25/2019 21:41 EDT Systolic Blood Pressure 121 mmHg Diastolic Blood Pressure 39 mmHg LOW Mean Arterial Pressure (MAP)-BMDI 59 Temperature Source Oral Temperature Mode Fahrenheit Temperature, Fahrenheit 99.2 Deg F Clinical Temperature, C 37.3 Deg C Heart Rate Monitored 93 bpm Respiratory Rate 16 Breaths/Min Oxygen Saturation [...] Review / Management Results review: All Results 06/25/2019 3:29 EDT Sodium Level 139 mmol/L Potassium Level 4.6 mmol/L Chloride Level 109 mmol/L Carbon Dioxide Level 24 mmol/L Anion Gap 11 Glucose Level 85 mg/dL Blood Urea Nitrogen 9 mg/dL Creatinine Level 0.46 mg/dL LOW eGFR >60 mL/min/1.73m2 eGFR NonAfrican >60 mL/min/1.73m2 Bun/Creatinine 19.6 Calcium Level 7.3 mg/dL LOW . Condition: Stable. Impression and Plan Diagnosis Chronic venous insufficiency - Admitting, Medical. Osteoarthritis - Admitting, Medical. Sleep apnea - Admitting, Medical. Sepsis - Admitting, Medical. Left prothetic knee infection tests post I&D debridement, washout and poly-exchange I&D , debridement - Working, Medical. Hypercholesteremia - Admitting, Medical. Left knee pain - Admitting, Medical. Elevated procalcitonin - Admitting, Medical. Hyperalbuminemia - Working, Medical. Morbid obesity with BMI of 40.0-44.9, [...] renal function, blood glucose, and urine output. . Orders Order Profile (Selected) Inpatient Orders Ordered (Scheduled) CBC w/ Auto Diff: Specimen Type: Blood, AM Draw collect, 06/26/19 4:00:00 EDT, 1-Time, Stop: 06/26/19 4:00:00 EDT, Lab Collect CMP Comprehensive Metabolic Panel: Specimen Type: Blood, AM Draw collect, 06/26/19 4:00:00 EDT, 1-Time, Stop: 06/26/19 4:00:00 EDT, Lab Collect CRP C-Reactive Protein: Specimen Type: Blood, AM Draw collect, 06/26/19 4:00:00 EDT, 1-Time, Stop: 06/26/19 4:00:00 EDT, Lab Collect ESR Sedimentation Rate Auto: Specimen Type: Blood, AM Draw collect, 06/26/19 4:00:00 EDT, 1-Time, Stop: 06/26/19 4:00:00 EDT, Lab Collect. Electronically signed by Maureen Cornejo Conversion Wastewater Treatment Plant Chemist Cerner at 06/16/2022 8:11 PM CDT documented in this encounter Plan of Treatment Not on file documented as of this encounter Visit Diagnoses Not on filedocumented in this encounter
--- OUTSIDE RECORDS SUMMARY | 2024-08-09 13:21 | XMS_ITS | Encounter Summary ---
Author Organization [employer] Address [address] [place] [address] Care Team Providers Care Animal Technician Name Role Phone Unavailable Primary Care Provider Unavailabl e Encounter Details Date Type Department Care Team (Late st Contact Info) Description 06/26/2019 Transcribed Document [facility] [place] Family Medicine [address] [place] [address] ProviderMariela MD [address] [place], [place] [id number] Social History Tobacco Use Types Packs/Day Years Used Date Smoking Tobacco: Never Assessed Comments Unknown Sex and Gender Information Value Date Recorded Sex Assigned at Female 09/02/2021 8:57 PM CDT Legal Sex Female 6:58 PM CDT Gender Identity Female 09/02/2021 8:57 PM CDT Sexual Orientation Not on file documented as of this encounter Miscellaneous Notes * Cerner Conversion Note - Mariela ProviderMD - 06/26/2019 11:07 AM CDT Patient Education Materials Follows: How to Use a Walker How to walk with a walker The best way to walk with a walker depends on whether you are using a standard walker or a front-wheeled walker. A standard walker has rubber tips on the ends of all four legs. A front-wheeled walker has wheels on the ends of the front legs and rubber tips on the ends of the back legs. ??? Do not use your walker on stairs or an escalator unless you have been trained by a physical therapist or unless your health care provider approves. To Walk With a Standard Walker: 1. passenger car cleaning supervisor your walker. Do not slide your standard walker. 2. Set down your walker, one step-length in front of you. Make sure that all four legs of the walker touch the ground at the same time. Your toes should be farther forward than the back legs of your walker. 3. Hold on to the walker for support, and step your weaker leg into the middle of the walker. 4. Step your stronger leg forward to land next to your weaker leg. 5. Repeat this process for each step. To Walk With a Front-Wheeled Walker: 1. Slide your front-wheeled walker one step-length in front of you. Your toes should be farther forward than the back legs of your walker. 2. Hold on to the walker for support, and step your weaker leg into the middle of the walker. 3. Step your stronger leg forward to land next to your weaker leg. 4. Repeat the process for each step. Tips ??? Always keep both feet within the width of the walker's legs or wheels. ??? When using your walker, you should not feel like you need to lean forward or to the side to keep your hands on the handgrips. ??? Make sure you are following any weight-bearing instructions that your health care provider has given you. ??? If you have a standard walker: ? Do not slide your walker when you are moving. ??? If you have a front-wheeled walker: ? Be careful not to let the walker get too far ahead of you as you walk. ? If your walker does not glide well over carpet, consider cutting an X into two tennis balls and placing the balls over the back legs of your walker. How to stand up with a walker 1. Put your walker in front of you. 2. Slide forward in your chair. 3. Position your legs so that your weaker leg is ahead of you and your stronger leg is bent and near your chair. 4. Position your hands. ??? If your chair has armrests, put each hand on an armrest. ??? If there are no armrests, put the hand opposite your weaker leg on the chair seat, and put the other hand on the center of the walker's crossbar. 5. Lean forward and push up from your chair. 6. Rise by straightening your stronger leg. 7. Steady yourself. 8. Carefully move your hands to the handgrips of the walker. Tips ??? Do not pull on the walker when you stand up. This may cause it to tip. ??? Sit in a firm chair whenever you can. A low seat or an overstuffed chair or sofa is hard to get out of. How to sit down with a walker To Sit Down in a Seat That Has Armrests: 1. Back up toward your seat, using your walker, until you feel the back of your legs touch the chair. 2. Carefully reach your hands behind you and put each hand on an armrest. 3. Slowly lower yourself into the seat. To Sit Down in a Seat Without Armrests: 1. Back up toward the side of the seat, using your walker, until you feel the back of your legs touch the chair. 2. Use one hand to hold on to the back of the chair, and use the other hand to hold on to the front of the seat. 3. Slowly lower yourself into the seat. How to use a walker on a curb or step To Use a Walker to Step Up: [...] 5. Step down with your stronger leg. This information is not intended to replace advice given to you by your health care provider. Make sure you discuss any questions you have with your health care provider. Document Released: 02/15/2006 Document Revised: 07/15/2016 Document Reviewed: 08/30/2015 [employer] Interactive Patient Education ? 2019 [employer] What to expect after the Procedure: After the procedure, it is common to have: ?? Pain and swelling. ?? A small amount of blood or clear fluid coming from your incision for up to 7 days. ?? It is normal to have a moderate amount of bleeding from the site of the drain that was pulled on the morning after surgery. You can hold pressure on the area for 3-5 minutes and cover with a bandage as needed. Diet: ?? Resume usual diet ?? No alcoholic beverages while taking pain medication ?? Drink 8-10 glasses of water a day to prevent constipation from pain medication ?? Increase fiber to help prevent constipation. Straining can cause increased pressure and pain in your incision area ?? Increase protein to promote healing Driving: ?? Do not drive until your health care provider approves. Ask your health care provider when it is safe to drive if you have an immobilizer on your knee. ?? Do not drive or operate heavy machinery while taking prescription pain medicine. ?? Do not drive for 24 hours if you received a sedative. Activity: ?? Do not lift anything that is heavier than 10 lb (4.5 kg) until your health care provider approves. ?? No strenuous activity ?? Avoid high-impact activities, including running, jumping rope, and jumping jacks. ?? Avoid sitting for a long time without moving. Get up and move around at least every few hours. ?? Keep legs elevated while seated and place surgery leg on 2-3 pillows, this will decrease swelling ?? Continue doing blue foam and [place] ???tub time?? 3 times a day for 30 minutes at a time. More often is better. ?? Continue using walker until cleared by physical therapy Bathing: ?? Do not take baths, swim, or use a hot tub for one month after surgery. ?? May shower on the third day after surgery by covering incision with Glad Brand Press and Seal saran wrap. After showering, dry off completely BEFORE removing saran wrap. ?? Use Press and Seal saran wrap to shower for one month after surgery ?? You must be seated to shower until you are no longer using the walker Other: ?? Use ice therapy for 20-30 minutes at a time and leave off for 20-30 minutes at a time. Always keep a towel or cloth between the ice pack and your skin ?? Continue to use Incentive Spirometer 10 times an hour while awake for one month to help prevent pneumonia ?? Cover incision with white gauze squares and tube netting. Change daily for 7 days. ?? Please remember to use water and ice or 4 frozen water bottles in the [facility] cube. ?? Contact a health care provider if: ?? You have more redness, swelling, or pain around your incision. ?? You have more fluid or blood coming from your incision. ?? Your incision or drain site feels warm to the touch. ?? You have pus or a bad smell coming from your incision. ?? You have a fever. ?? Your incision breaks open after your health care provider removes your sutures, skin glue, or adhesive tape. ?? Your prosthesis feels loose. ?? You have knee pain that does not go away. DVT: Blood Clot Blood clots are a common risk after an orthopedic surgery Symptoms: ?? Swelling of your leg or arm, especially if one side is much worse. ?? Warmth and redness of your leg or arm, especially if one side is much worse. ?? Pain in your arm or leg. If the clot is in your leg, symptoms may be more noticeable or worse when you stand or walk. ?? A feeling of pins and needles, if the clot is in the arm. The symptoms of a DVT that has traveled to the lungs (pulmonary embolism, PE) usually start suddenly and include: ?? Shortness of breath while active or at rest. ?? Coughing or coughing up blood or blood-tinged mucus. ?? Chest pain that is often worse with deep breaths. ?? Rapid or irregular heartbeat. ?? Feeling light-headed or dizzy. ?? Fainting. ?? Feeling anxious. ?? Sweating. There may also be pain and swelling in a leg if that is where the blood clot started. How is this prevented? ?? Exercise regularly. For at least 30 minutes every day, engage in: ? Activity that involves moving your arms and legs. ? Activity that encourages good blood flow through your body by increasing your heart rate. ?? Exercise your arms and legs every hour during long-distance travel (over 4 hours). ?? Drink plenty of water and avoid drinking alcohol while traveling. ?? Avoid sitting or lying in bed for long periods of time without moving your legs. ?? Maintain a weight that is appropriate for your height. Ask your health care provider what weight is healthy for you. ?? If you are a woman who is over 35 years of age, avoid unnecessary use of medicines that contain estrogen. These include control pills. ?? Do not smoke, especially if you take estrogen medicines. If you need help quitting, ask your health care provider. ?? Wear compression stockings (if told by your health care provider) to help prevent blood clots from forming. High Fiber/High Protein Diet High fiber foods: To prevent constipation ?? Grains Whole-grain breads. Multigrain cereal. Oats and oatmeal. Brown rice. Barley. Bulgur wheat. Millet. Bran muffins. Popcorn. [place] wafer crackers. ?? Vegetables Sweet potatoes. Spinach. Kale. Artichokes. Cabbage. Broccoli. Green peas. Carrots. Squash. ?? Fruits Berries. Pears. Apples. Oranges. Avocados. Prunes and raisins. Dried figs. ?? Meats and Other Protein Sources [place], kidney, call, and soy beans. Split peas. Lentils. Nuts and seeds. ?? Dairy Fiber-fortified yogurt. ?? Beverages Fiber-fortified soy milk. Fiber-fortified orange juice. ?? Other Fiber bars. High-protein foods: To promote healing High-protein foods contain 4 grams (4 g) or more of protein per serving. They include: ?? Beef, ground sirloin (cooked) ??? 3 oz have 24 g of protein. ?? Cheese (hard) ??? 1 oz has 7 g of protein. ?? Chicken breast, boneless and skinless (cooked) ??? 3 oz have 13.4 g of protein. ?? Cottage cheese ??? 1/2 cup has 13.4 g of protein. ?? Egg ??? 1 egg has 6 g of protein. ?? Fish, filet (cooked) ??? 1 oz has 6???7 g of protein. ?? Garbanzo beans (canned or cooked) ??? 1/2 cup has 6???7 g of protein. ?? Kidney beans (canned or cooked) ??? 1/2 cup has 6???7 g of protein. ?? Wells (cooked) ??? 3 oz has 24 g of protein. ?? Milk ??? 1 cup (8 oz) has 8 g of protein. ?? Nuts (peanuts, pistachios, almonds) ??? 1 oz has 6 g of protein. ?? Peanut butter ??? 1 oz has 7???8 g of protein. ?? Pork tenderloin (cooked) ??? 3 oz has 18.4 g of protein. ?? Pumpkin seeds ??? 1 oz has 8.5 g of protein. ?? Soybeans (roasted) ??? 1 oz has 8 g of protein. ?? Soybeans (cooked) ??? 1/2 cup has 11 g of protein. ?? Soy milk ??? 1 cup (8 oz) has 5???10 g of protein. ?? Soy or vegetable gray ??? 1 gray has 11 g of protein. ?? [place] seeds ??? 1 oz has 5.5 g of protein. ?? Tofu (firm) ??? 1/2 cup has 20 g of protein. ?? Tuna (canned in water) ??? 3 oz has 20 g of protein. ?? Yogurt ??? 6 oz has 8 g of protein. Fall Prevention ?? Use night lights. ?? Install grab bars by the toilet and in the tub and shower. Do not use towel bars as grab bars. ?? Use non-skid mats or decals on the floor of the tub or shower. ?? If you need to sit down while you are in the shower, use a plastic, non-slip stool. ?? Keep the floor dry. Immediately clean up any water that spills on the floor. ?? Remove soap buildup in the tub or shower on a regular basis. ?? Remove throw rugs and other tripping hazards from the floor. ?? Place frequently used items in [id number] places ?? Keep electrical cables out of the way. ?? Do not leave any items on the stairs. ?? Make sure that there are handrails on both sides of the stairs. Fix handrails that are broken or loose. Make sure that handrails are as long as the stairways. ?? Check any carpeting to make sure that it is firmly attached to the stairs. Fix any carpet that is loose or worn. ?? Avoid having throw rugs at the top or bottom of stairways, or secure the rugs with carpet tape to prevent them from moving. ?? Wear closed-toe shoes that fit well and support your feet. Wear shoes that have rubber soles or low heels. ?? Use mobility aids as needed, such as canes, walkers, scooters, and crutches. ?? Turn on lights if it is dark. Replace any light bulbs that burn out. ?? Set up furniture so that there are clear paths. Keep the furniture in the same spot. ?? Be aware of any and all pets. ?? Review your medicines with your healthcare provider. Some medicines can cause dizziness or changes in blood pressure, which increase your risk of falling. Hand Washing You should wash your hands whenever you think they are dirty. You should also wash your hands: ?? After: ? Working or playing outside. ? Touching an animal or its toys or leash. ? Handling livestock. ? Using the bathroom. ? Using household art history professor or toxic chemicals. ? Touching or taking out the garbage. ? Touching anything dirty around your home. ? Handling soiled clothes or rags. ? Taking care of a sick child. This includes touching used tissues, toys, and clothes. ? Sneezing, coughing, or blowing your nose. ? Using public transportation. ? Shaking hands. ? Using a phone, including your mobile phone. ? Touching money. ?? Before and after: ? Preparing food. ? [...] 4. Repeat the process for each step. ?? Always keep both feet within the width of the walker's legs or wheels. ?? When using your walker, you should not feel like you need to lean forward or to the side to keep your hands on the handgrips. ?? Make sure you are following any weight-bearing instructions that your health care provider has given you. ?? Be careful not to let the walker get too far ahead of you as you walk. ?? If your walker does not glide well [...] with your stronger leg. Knee Immobilizer Brace: ?? Adjust the brace as often as needed while wearing it. It should be firm but not tight. Signs that the brace is too tight include: ? Puffiness (swelling). ? Numbness. ? Color change in your foot or ankle. ? Increased pain. documented in this encounter Plan of Treatment Not on file documented as of this encounter Visit Diagnoses Not on filedocumented in this encounter
--- OUTSIDE RECORDS SUMMARY | 2024-08-09 13:21 | XMS_ITS | Encounter Summary ---
Author Organization [employer] Address [address] [place] [address] Care Team Providers Care Retail Service Lead Merchandiser Name Role Phone Unavailable Primary Care Provider Unavailabl e Encounter Details Date Type Department Care Team (Late st Contact Info) Description 08/23/2020 Transcribed Document [facility] [place] Family Medicine [facility] [place] [address] ProviderMariela MD [address] [place] [address] Social History Tobacco Use [...] Conversion Note - Historical ProviderMD - 08/23/2020 12:56 PM CDT PLEASE MODIFY BEFORE SIGNING CLINICAL DOCUMENTATION CLARIFICATION FORM: Dear : Alannah Date / Time: 08/23/2020 Please exercise your independent, professional judgment in responding to the clarification form. Clinical indicators are provided on the bottom of this form for your review Please check appropriate box(es): [ ] Acute blood loss anemia [ x ] Post-op anemia related to acute blood loss [ ] Anemia unspecified [ ] Other diagnosis [ ] Unable to determine For continuity of documentation, please document condition throughout progress notes and discharge summary. Thank You. To be completed by CDI/Coding staff for physician review: Present Clinical Indicators - Signs / Symptoms / Labs Results and Location in Medical Record [ x ] Low hemoglobin and/or hematocrit result review Labs 08/21 Hgb 10.5 Hct 32.2 08/23 Hgb 7.0 Hct 21.8 Present Risk Factors Results and Location in Medical Record [ x ] Surgery/TKA revision 08/20 PROCEDURE: Right total knee arthroplasty revision with extensor mechanism reconstruction with Marlex mesh [ x ] Hx Oilton filter 08/20 PN Oilton filter Present Treatments Results and Location in Medical Record [ x ] Inform about Blood transfusion 08/22 RN event note Informed pt that she needed a blood transfusion per standing order and explained the details [ x ] Monitoring H&H 08/22 PN Close monitoring H&H. CDS/Surveillance Dual Rate Officer Signature: Charo Blancas Phone #: [phone] Date/Time: 08/23/2020 ____ This is a permanent part of the Medical Record Q4 2019 [facility] Updated: Electronically signed by Maureen Cornejo Conversion Material Handler Floorperson Cerner at 06/16/2022 8:14 PM CDT documented in this encounter Plan of Treatment Not on file documented as of this encounter Visit Diagnoses Not on filedocumented in this encounter
--- OUTSIDE RECORDS SUMMARY | 2024-08-09 13:21 | XMS_ITS | Encounter Summary ---
Author Organization [employer] Address [address] [place] [id number] Care Team Providers Care Jr. Java Developer Name Role Phone Unavailable Primary Care Provider Unavailabl e Encounter Details Date Type Department Care Team (Late st Contact Info) Description 08/26/2018 Transcribed Document [facility] [place] Family Medicine [facility] [place] [address] ProviderMariela MD [facility] [place] [address] Social History Tobacco Use Types [...] Conversion Note - Historical ProviderMD - 08/26/2018 9:00 PM CDT Pain Assessment Entered On: 08/27/2018 0:44 EDT Performed On: 08/26/2018 22:51 EDT by Peggy Rayo RN Intervention Information: acetaminophen Performed by Peggy Rayo RN on 08/26/2018 21:51:00 EDT acetaminophen,1000mg Oral Pain Assessment Pain Assessment : Follow-up assessment Pain Scale Goal : 3 Pain Scale Used : FACES Pain Intervention, Drug : Medicated Pain Improved by Intervention : Yes Peggy Rayo RN - 08/27/2018 0:44 EDT Pain Scale Intensity : 1 Peggy Rayo RN - 08/27/2018 0:44 EDT Image 4 - Images currently included in the form version of this document have not been included in the text rendition version of the form. documented in this encounter Plan of Treatment Not on file documented as of this encounter Visit Diagnoses Not on filedocumented in this encounter
--- OUTSIDE RECORDS SUMMARY | 2024-08-09 13:21 | XMS_ITS | Encounter Summary ---
Author Organization [employer] Address [address] [place] [address] Care Team Providers Care Meat Process Worker Name Role Phone Unavailable Primary Care Provider Unavailabl e Encounter Details Date Type Department Care Team (Late st Contact Info) Description 06/22/2019 Transcribed Document [facility] [place] [address] [place] [address] ProviderMariela MD [address] [place] [address] Social History Tobacco Use Types Packs/Day Years [...] Conversion Note - Historical ProviderMD - 06/22/2019 2:00 AM CDT Customer Service Sales Associate Details Entered On: 06/22/2019 1:24 EDT Performed On: 06/22/2019 2:00 EDT by Reid Ramon, Rn-Charge Order Details Transport Mode Order Detail : Bed (including specialty) Isolation Precautions Order Detail : Contact precautions Order Detail : N/A IV Order Detail : 1 Oxygen Order Detail : 1 Nurse Collect Order Detail : 0 Lift/Transfer : Maximal assist Central Line Order Detail : Yes Room Service : Not Appropriate Arterial Line : No Reid Ramon Rn-Charge - 06/22/2019 1:23 EDT documented in this encounter Plan of Treatment Not on file documented as of this encounter Visit Diagnoses Not on filedocumented in this encounter
--- OUTSIDE RECORDS SUMMARY | 2024-08-09 13:21 | XMS_ITS | Encounter Summary ---
Author Organization [employer] Address [address] [place] [address] Care Team Providers Care Pizza Hut Assistant Name Role Phone Unavailable Primary Care Provider Unavailabl e Encounter Details Date Type Department Care Team (Late st Contact Info) Description 06/25/2019 Transcribed Document [facility] [place] Medicine [facility] [place] [address] ProviderMariela MD [place] [address] Social History Tobacco Use Types [...] Conversion Note - Historical ProviderMD - 06/25/2019 11:55 AM CDT Patient: SOFIA GILL Age: 79 Years Sex: Female : 1940 Assessment/Plan POD #4 s/p Left TKA Revision and I&D for infected joint--Patient's pain is well controlled. Strictly keep knee orthosis on all times. She has complex extensor mechanism repair at high risk for disruption. Continue ABX coverage per ID Dispo planning when PICC in place and cleared medically. VTE Prophylaxis - Medical Warfarin 2 mg, Oral, Tab, Daily, Routine, Start 06/23/19 18:00:00 EDT (NIMO EPPS) Sequential Compression Device Start: 06/21/19 19:25:00 EDT, Bilateral, Length: Knee High, Continuous Order (MCCRACKEN, SOLOMON, PA-C) Sequential Compression Device Start: 06/16/19 21:25:00 EDT, Bilateral, Length: Knee High, While patient is in bed, Continuous Order (DONNA DRIVER) Subjective Patient's pain relatively well controlled, no complaints. Brace has been adjusted and fells better. Vital Signs T: 37.3 ??C TMIN: 36.9 ??C TMAX: 37.4 ??C HR: 85(Monitored) RR: 14 BP: 108/37 SpO2: 98% Oxygen Settings (Last) Oxygen Therapy Mode: Nasal cannula (06/25/19 07:53:00) Oxygen Flow Rate: 2 Liter/Min (06/25/19 07:53:00) Intake & Output Totals Last 24 Hours (7a-7a) Input Total: 250 mL Output Total: 1400 mL Balance: -1150 mL Physical Exam Brace, dressing c/d/i. Incision is c/d/i. no drainage. no signs of wound dehiscence or infection Mild knee swelling noted SILT throughout the extremity TA,GAS firing wwp distally. Compartments of the leg soft/compressible HKA orthosis is in place. Knee is held in extension. Medications albumin human 25% intravenous solution, 25 [...] PRN Chloraseptic Menthol 1.4% topical spray, 1 Kenmare, Oral, Q2H, PRN cloNIDine, 0.1 mg= 1 Tab, Oral, Q4H, PRN Coenzyme Q10, 50 mg= 1 Cap, Oral, Daily Colace, 100 mg= 1 Cap, Oral, BID Coumadin, 2 mg= 1 Tab, Oral, Daily Crestor, 10 mg= 1 Tab, Oral, At Bedtime cyanocobalamin, 5000 mcg= 5 Tab, Oral, Daily Cymbalta, 60 mg= 1 Cap, Oral, Daily Diflucan, 100 mg= 1 Tab, Oral, Daily Dulcolax Laxative, 10 mg= 1 Supp, Rectal, BID, PRN DuoNeb 0.5 mg-2.5 mg/3 mL inhalation solution, 3 mL, Nebulized Inhalation , RT_Q6H, PRN Fleet Enema, 133 mL, Rectal, 1-Time, PRN Florastor, 250 mg= 1 Cap, Oral, Daily fluticasone 50 mcg/inh nasal spray, 2 Kenmare, Nostrils Both, BID, PRN gabapentin, 300 mg= [...] Test Result Date/Time Sodium Level 139 mmol/L 06/25/2019 03:29 EDT Potassium Level 4.6 mmol/L 06/25/2019 03:29 EDT Chloride Level 109 mmol/L 06/25/2019 03:29 EDT Carbon Dioxide Level 24 mmol/L 06/25/2019 03:29 EDT Anion Gap 11 06/25/2019 03:29 EDT Glucose Level 85 mg/dL 06/25/2019 03:29 EDT Blood Urea Nitrogen 9 mg/dL 06/25/2019 03:29 EDT Creatinine Level 0.46 mg/dL (Low) 06/25/2019 03:29 EDT eGFR >60 mL/min/1.73m2 06/25/2019 03:29 EDT eGFR NonAfrican >60 mL/min/1.73m2 06/25/2019 03:29 EDT Bun/Creatinine 19.6 06/25/2019 03:29 EDT Calcium Level 7.3 mg/dL (Low) 06/25/2019 03:29 EDT documented in this encounter Plan of Treatment Not on file documented as of this encounter Visit Diagnoses Not on filedocumented in this encounter
--- OUTSIDE RECORDS SUMMARY | 2024-08-09 13:21 | XMS_ITS | Encounter Summary ---
Author Organization [employer] Address [address] [place] [address] Care Team Providers Care Cement Paver Name Role Phone Unavailable Primary Care Provider Unavailabl e Encounter Details Date Type Department Care Team (Late st Contact Info) Description 07/19/[address] [facility] [place] [address] [place] [address] ProviderMariela MD [address] [place] [address] Social History Tobacco Use Types [...] Conversion Note - Historical ProviderMD - 07/19/2019 5:00 AM CDT Chart Check - Review Order Profile Entered On: 07/19/2019 6:35 EDT Performed On: 07/19/2019 5:00 EDT by Kena Ling, RN Chart Check Powerplans Initiated/Discontinued as Appropriate : Yes All Active Orders Reviewed : Yes Kena Ling, RN - 07/19/2019 6:35 EDT documented in this encounter Plan of Treatment Not on file documented as of this encounter Visit Diagnoses Not on filedocumented in this encounter
--- OUTSIDE RECORDS SUMMARY | 2024-08-09 13:21 | XMS_ITS | Encounter Summary ---
Author Organization [employer] Address [address] [place] [address] Care Team Providers Care Structural Manager Name Role Phone Unavailable Primary Care Provider Unavailabl e Encounter Details Date Type Department Care Team (Late st Contact Info) Description 08/23/[address] [facility] [place] [facility] [place] [address] ProviderMariela MD [address] [place] [address] Social History Tobacco Use Types [...] Historical ProviderMD - 08/23/2020 5:00 AM CDT Pain Assessment Entered On: 08/23/2020 6:20 EDT Performed On: 08/23/2020 6:32 EDT by Caitlyn Fallon Rn Intervention Information: acetaminophen Performed by Caitlyn Fallon Rn on 08/23/2020 05:32:00 EDT acetaminophen,1000mg Oral Pain Assessment Pain Assessment : Follow-up assessment Pain Scale Goal : 3 Pain Scale Used : 0-10 Scale Caitlyn Fallon Rn - 08/23/2020 6:20 EDT Pain Scale Intensity : 0 Caitlyn Fallon Rn - 08/23/2020 6:20 EDT Image 4 - Images currently included in the form version of this document have not been included in the text rendition version of the form. Electronically signed by Maureen Cornejo Conversion Research & Analytics Manager Cerner at 06/16/2022 8:22 PM CDT documented in this encounter Plan of Treatment Not on file documented as of this encounter Visit Diagnoses Not on filedocumented in this encounter
--- OUTSIDE RECORDS SUMMARY | 2024-08-09 13:21 | XMS_ITS | Encounter Summary ---
Author Organization [employer] Address [address] [place] [address] Care Team Providers Care Fire And Safety Helper Name Role Phone Unavailable Primary Care Provider Unavailabl e Encounter Details Date Type Department Care Team (Late st Contact Info) Description 08/26/[address] [facility] [place] [facility] [place] [address] ProviderMariela MD [address] [place] [address] Social History Tobacco Use Types [...] Conversion Note - Historical ProviderMD - 08/26/2018 10:59 AM CDT PLEASE MODIFY BEFORE SIGNING CLINICAL DOCUMENTATION CLARIFICATION FORM: Dear Dr. Atkinson et al; Date: 08/26/18 Please exercise your independent, professional judgment in responding to the clarification form. Clinical indicators are provided on the bottom of this form for your review BMI > 40 with associated diagnosis of: (check one) [ x ] Morbid (Severe) Obesity [ x ] Due to excess calories [ ] with Alveolar Hypoventilation (Pickwickian syndrome) [ ] Overweight [ ] Obesity [ ] Other diagnosis [ ] Unable to determine BMI < 19 Under weight 19 - 24.9 Healthy 25.0 - 29.9 Slightly Overweight 30.0 - 34.9 Obese 35.0 - 39.9 Severely Obese 40.0 and Over Morbidly Obese For continuity of documentation, please document condition throughout progress notes and discharge summary. Thank You. 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 CDS Signature: Leonarda BOWLING, RN Phone #: [phone] This is a permanent part of the Medical Record documented in this encounter Plan of Treatment Not on file documented as of this encounter Visit Diagnoses Not on filedocumented in this encounter
--- OUTSIDE RECORDS SUMMARY | 2024-08-09 13:21 | XMS_ITS | Encounter Summary ---
Author Organization [employer] Address [address] [place] [address] Care Team Providers Care Crossing Flagman Name Role Phone Unavailable Primary Care Provider Unavailabl e Encounter Details Date Type Department Care Team (Late st Contact Info) Description 07/19/2019 Transcribed Document [facility] [place] [address] ProviderMariela MD [address] [id number] Social History Tobacco Use Types Packs/Day Years Used Date Smoking Tobacco: Never Assessed Comments Unknown Sex and Gender Information Value Date Recorded Sex Assigned at Female 09/02/2021 8:57 PM CDT Legal Sex Female 6:58 PM CDT Gender Identity Female 09/02/2021 8:57 PM CDT Sexual Orientation Not on file documented as of this encounter Miscellaneous Notes * Cerner Conversion Note - Historical Provider, - 07/19/2019 9:15 AM CDT Care Management Assessment/Plan Entered On: 07/19/2019 9:16 EDT Performed On: 07/19/2019 9:15 EDT by СВЕТЛАНА WANG Care Management Note Care Management Note : 07/19/2019 Patient went to appointment with Dr. Saenz yesterday, came back with a follow-up appointment scheduled for 08/17/2019 @ 1330. Care Management Note Report : СВЕТЛАНА WANG - 07/17/19 13:41:45 07/17/2019 Call received from Tati Erickson [facility], with approval for LTAC services. Last covered date 07/18/2019 with anticipated DC on 07/19/2019. Please fax DC summary on date of discharge. Auth#[id number]. СВЕТЛАНА WANG - 07/17/19 11:32:16 07/17/[address] Snyder (ID), he is in agreement to discharge to SNF on Wednesday, he would like for her to follow-up with the consulting ID (Dr. Stock) in 1 week upon discharge. TELEHEALTH appointment scheduled with Dr. Stock for 07/25/2019 @ 1600. [facility] will call Lexy to facilitate this visit. KATHLEEN СВЕТЛАНА - 07/17/19 10:32:31 07/17/2019 faxed clinical review the [facility] at [phone] to request approval for extended ltac services. Auth#[id number], awaiting approval. CM/Discharge plan attached to review. СВЕТЛАНА WANG - 07/17/19 09:06:05 07/17/[address] Jaffe's progress note, yahaira may be removed if okay with Dr. Saenz's office. Per our WOCN, Dr. Saenz's office said they need to see her before they make that decision. Appt scheduled for tomorrow, 07/18/2019 @ 1415; [facility] round-trip transport scheduled for 1315 pick-up ([id number]). Spoke with Lexy Valdez, they have not yet began the patient's insurance preauth, they will today, and be ready to admit on Wednesday. Dr. Jaffe notified and in agreement. [facility] rescheduled for discharge 07/19/2019 @ 1400 ([id number]). YOANNA ARAUJO RN - 07/14/19 15:41:31 Yoanna Araujo 07/13/2019 1500 - patient has accepted bed offer at [facility], she will be transported on WednesdayJuly 16 at 2pm by [facility] Confirmation # [id number]. [facility] Jaffe notified of discharge plan. YOANNA ARAUJO RN - 07/13/19 14:37:44 Yoanna Araujo 07/13/2019 1400 received call from Ratna with [facility] offering patient a bed, Received call from Isabelle with [facility] she is looking at patient and needed a current height and weight. Still waiting to see if any other bed offers come through. I also sent referral to [facility]. YOANNA ARAUJO RN - 07/13/19 11:04:03 Yoanna Araujo 07/13/2019 1100 faxed out referral for placement for patient to [facility] rehab, [facility] Awaiting call backs. СВЕТЛАНА WANG - 07/12/19 12:19:17 07/12/2019 Fax received from [facility] with approval for LTAC services with a request for updated discharge plans and clinical info to support needs if not discharged. Auth#[id number]. Clinical review or discharge summary to be faxed by 07/17/2019. YOANNA ARAUJO RN - 07/12/19 08:39:48 Yoanna Araujo 07/12/2019 0830 - faxed clinical review the [facility] at [phone] to request approval for extended ltac services. Auth#[id number], awaiting approval. YOANNA ARAUJO RN - 06/29/19 [...] health and she has been to the [facility] and [facility] in the past. She has the following equipment at home: wheel chair, walker, cane and shower chair. Her discharge plan is to go to rehab prior to returning home. PCP: Flavia MARQUEZ [address] [place] [address] Truck Headlight Assembler: Dr. Shemar Barger [address] [facility] [address] [facility] [address] [address] Clemente Del Rio MD - Rheumatology - [address] [place] [address] Preferences: Home Health: [facility]: no preferences DME: [facility] - [address], [place] [address] Longterm: [facility] facility: no preferences Will continue to monitor patient for anticipated discharge needs YOANNA ARAUJO, EDDIE - 06/29/19 08:30:20 Yoanna Araujo 06/29/201930 received fax from [facility] with approval for extended ltac coverage with next clinical review due on 07/12/2019. Auth#[id number]. Will continue to follow for anticipated discharge needs. YOANNA ARAUJO RN - 06/28/19 08:35:06 Yoanna Araujo 06/28/2019 0830 Faxed clinical review to [facility] at to request approval for extended Ltac services. Auth#[id number]. Pending Approval. Documentation Status Complete : Yes СВЕТЛАНА WANG - 07/19/2019 9:15 EDT Electronically signed by Maureen Cornejo Conversion Client Application Support Engineer Cerner at 06/16/2022 8:29 PM CDT documented in this encounter Plan of Treatment Not on file documented as of this encounter Visit Diagnoses Not on filedocumented in this encounter
--- OUTSIDE RECORDS SUMMARY | 2024-08-09 13:21 | XMS_ITS | Encounter Summary ---
Author Organization [employer] Address [address] [place] [address] Care Team Providers Care Big Data Engineer Name Role Phone Unavailable Primary Care Provider Unavailabl e Encounter Details Date Type Department Care Team (Late st Contact Info) Description 06/22/2019 Transcribed Document [facility] [place] [facility] [place] [address] ProviderMariela MD [address] [place] [address] Social History Tobacco Use Types Packs/Day [...] Conversion Note - Historical ProviderMD - 06/22/2019 4:20 PM CDT Patient: SOFIA GILL Age: 79 years [...] DRIVER MD-INT Basic Information awake alert comfortable, ???Has postop acute blood loss anemia with hemoglobin of 7.5 ???Transfusion of 2 units of packed RBCs in progress ???Has a special brace around her waist and down to her right lower extremity ???No nausea or vomiting ???No chest pain or trouble breathing ???Participating with PT/OT ???Leukocytosis was elevated WBCs of 24.5 ???Culture results are still pending ???Hyponatremia resolved Review of Systems Constitutional: No fever, No [...] reaction sulfa drugs Itching Current medications: Medications (60) Active Scheduled: (23) #NaCl 0.9% *FLUSH* inj 10 mL 10 mL, IntraCATHeter, Q12H acetaminophen 500 mg tab 1,000 mg 2 Tab, Oral, TID aspirin EC 81 mg tab 81 mg 1 Tab, Oral, BID calcium 500 mg/vit D 200 int unit tab 1 Tab, Oral, BID cefTRIAXone + NaCl 0.9% 50 mL 2 Gram, IV Piggyback, [id number] cyanocobalamin 1,000 mcg tab 5,000 mcg 5 Tab, Oral, Daily docusate sodium 100 mg cap 100 mg 1 Cap, Oral, BID DULoxetine DR 60 mg cap 60 mg 1 Cap, Oral, Daily gabapentin 300 mg cap 300 mg 1 Cap, Oral, At Bedtime heparin 5,000 units/1 mL inj 5,000 Units 1 mL, SubCutaneous, Q8H levothyroxine 100 mcg tab 100 mcg 1 Tab, Oral, Daily lidocaine 1% *PF* inj 5 mL 10 mL, IntraArtiCULAR, 1-Time lisinopril 10 mg tab 10 mg 1 Tab, Oral, Daily loratadine 10 mg tab 10 mg 1 Tab, Oral, Daily midazolam 2 mg/2 mL inj *PF* 1 mg 1 mL, IV Push, 1-Time multiple vitamin (Thera) tab 1 Tab, Oral, Daily pantoprazole EC 40 mg tab 40 mg 1 Tab, Oral, Daily polyethylene glycol 3350 pwd 17 g pkt 17 Gram 1 Packet, Oral, Daily rosuvastatin 10 mg tab 10 mg 1 Tab, Oral, At Bedtime saccharomyces boulardii 250 mg cap 250 mg 1 Cap, Oral, Daily senna/docusate 8.6/50 mg tab 2 Tab, Oral, At Bedtime tranexamic acid 1,000 mg + syringe 1 Each + NaCl 0.9% 20 mL 1,000 mg 10 mL, Topical, 1-Time ubiquinone 50 mg Cap 50 mg 1 Cap, Oral, Daily Continuous: (1) NaCl 0.9% 1,000 mL 1,000 mL, IntraVENous, 100 mL/Hr PRN: (36) acetaminophen 325 mg tab 650 mg 2 Tab, Oral, Q4H albuterol-ipratropium inh 3 mL 3 mL, Nebulized Inhalation, RT_Q6H ALPRAZolam 0.25 mg tab 0.25 mg 1 Tab, Oral, Q6H alteplase + sterile water 1 mL 1 mg, IntraCATHeter, 1-Time bisacodyl 10 mg supp 10 mg 1 Supp, Rectal, BID bisacodyl 10 mg supp 10 mg 1 Supp, Rectal, 1-Time calcium gluconate 1 Gram 10 mL, IV [...] At Bedtime fluticasone 0.05% nasal spray 2 Morning Sun, Nostrils Both, BID gabapentin 300 mg cap 300 mg 1 Cap, Oral, At Bedtime HYDROmorphone 1 mg/1 mL inj 0.5 mg 0.5 mL, IV Push, Q2H LORazepam 2 mg/mL inj 0.5 mg 0.25 [...] 4 mg 2 mL, IV Push, Q8H oxyCODONE 15 mg tab 15 mg 1 Tab, Oral, Q4H oxyCODONE 5 mg tab 20 mg 4 Tab, Oral, Q4H padimate O Lip balm stick 1 Application, Topical, Q1H phenol 1.4% throat spray 1 Morning Sun, Oral, Q2H potassium chloride 10 mEq 100 [...] 15 mMole 5 mL, IV Piggyback, Q6H traMADol 50 mg tab 100 mg 2 Tab, [...] Sleep apnea Physical Examination VS/Measurements Vital Measurements 06/22/2019 14:50 EDT Systolic Blood Pressure 101 mmHg Diastolic Blood Pressure 43 mmHg LOW Mean Arterial Pressure (MAP)-BMDI 54 Temperature Source Oral Temperature Mode Fahrenheit Temperature, Fahrenheit 97.8 Deg F Clinical Temperature, C 36.6 Deg C Heart Rate Monitored 82 bpm Respiratory Rate 16 Breaths/Min Oxygen Saturation 96 % Oxygen Therapy Mode Nasal cannula Oxygen Flow Rate 2 Liter/Min General: Alert and oriented, No acute distress. [...] Review / Management Results review: All Results 06/22/2019 2:40 EDT Sodium Level 136 mmol/L Potassium Level 4.5 mmol/L Chloride Level 103 mmol/L Carbon Dioxide Level 27 mmol/L Anion Gap 10 Glucose Level 101 mg/dL Blood Urea Nitrogen 21 mg/dL Creatinine Level 0.63 mg/dL eGFR >60 mL/min/1.73m2 eGFR NonAfrican >60 mL/min/1.73m2 Bun/Creatinine 33.3 HI Calcium Level 7.1 mg/dL LOW Protein Total 4.4 Gram/dL LOW Albumin Level 1.4 Gram/dL LOW Globulin 3.0 Gram/dL A/G Ratio 0.5 LOW Bilirubin Total 0.2 mg/dL Alk Phos 103 Units/Liter AST 25 Units/Liter ALT 16 Units/Liter WBC 24.5 K/uL HI RBC 2.47 Million/uL LOW Hgb 7.5 Gram/dL LOW Hgb 7.5 Gram/dL LOW Hct 23.7 % LOW Hct 23.7 % LOW MCV 96.0 fL HI MCH 30.4 pg MCHC 31.6 Gram/dL LOW Platelet Count 416 K/uL HI MPV 8.9 fL LOW RDW 13.0 % Neutrophil Percent Man 86 % HI ANC # 21 K/uL NA Lymph Percent Man 4 % LOW ALYC # 1 K/uL NA [place] Percent Man 6 % HI Bristol Percent Man 3 % HI Myelo Percent Man 2 % HI RBC Morphology Normal Platelet Ct Estimate Adequate 06/21/2019 4:41 EDT pH Art 7.43 pCO2 Art 34.2 mmHg LOW pO2 Art 90.3 mmHg HCO3 Art 22.3 mmol/L BE Art -1.0 mmol/L sO2 Art 95.8 % tHb Art 10.9 Gram/dL LOW ctO2 14.5 mmol/L NA FIO2 Art 28.0 NA Delivery Device Type Art CPAP Temperature, F Art 98.6 Deg F NA Art Blood Gas (ABG) Site Right Radial Acceptable Montrell's Test Art Acceptable Oxygen Flow Rate Art 2.0 Liter NA CPAP/PEEP Art 9.0 cmH2O NA ABG Num of Draw Attempts 1 NA 06/21/2019 3:07 EDT Sodium Level 133 mmol/L LOW Potassium Level 4.8 mmol/L Chloride Level 101 mmol/L LOW Carbon Dioxide Level 25 mmol/L Anion Gap 12 Glucose Level 93 mg/dL Blood Urea Nitrogen 23 mg/dL HI Creatinine Level 0.66 mg/dL eGFR >60 mL/min/1.73m2 eGFR NonAfrican >60 mL/min/1.73m2 Bun/Creatinine 34.8 HI Calcium Level 7.9 mg/dL LOW . Condition: Stable. Impression and [...] IV antibiotics as recommended by infectious disease. DC Castellano catheter. DC IV fluid. Fall risk precautions. Sleep apnea precautions. Stress ulcer prophylaxis.LTACH referral. Orders Order Profile (Selected) Inpatient Orders Ordered (Scheduled) CBC w/ Auto Diff: Specimen Type: Blood, AM Draw collect, 06/23/19 4:00:00 EDT, 1-Time, Stop: 06/23/19 4:00:00 EDT, Lab Collect CMP Comprehensive Metabolic Panel: Specimen Type: Blood, AM Draw collect, 06/23/19 4:00:00 EDT, 1-Time, Stop: 06/23/19 4:00:00 EDT, Lab Collect. Electronically signed by Maureen Cornejo Conversion Auricular Detoxification Specialist Cerner at 06/16/2022 8:16 PM CDT documented in this encounter Plan of Treatment Not on file documented as of this encounter Visit Diagnoses Not on filedocumented in this encounter
--- OUTSIDE RECORDS SUMMARY | 2024-08-09 13:21 | XMS_ITS | Encounter Summary ---
Author Organization [employer] Address [address] [place] [address] Care Team Providers Care Inductor Tester Name Role Phone Unavailable Primary Care Provider Unavailabl e Encounter Details Date Type Department Care Team (Late st Contact Info) Description 06/22/2019 Transcribed Document [facility] [place] [facility] [place] [address] ProviderMariela MD [address] [place] [address] Social History Tobacco Use Types [...] Conversion Note - Historical ProviderMD - 06/22/2019 3:00 AM CDT Nutrition Assessment Entered On: 06/22/2019 13:19 EDT Performed On: 06/22/2019 15:56 EDT by Oma Berg, TE, LD Nutrition Assessment Nutrition Assessment Reason : Follow Up Current Nutrition Regimen Comment : (06/21) RD rescreen; pt is s/p Left TKA revision and I&D for infected joint. Noted that pt has been eating <50% average of meals. RN noted that pt ate about 50% of breakfast. Also noted that stage 2 to coccyx was charted-did not trigger automatic referral. Discussed with RN. Attempted to speak with pt but not available. Will continue to monitor. (06/18) RD consult rec'd for BMI >40. Pt admitted due to left prothetic knee infection. Plans for AKA tomorrow. Pt is on a regular diet, intake being established. Labs and meds reviewed. No skin breakdown or GI issues noted. RD will check on in 2-3 days for intake establishment or available prn. 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, s/p Left TKA revision and I&D for infected joint PMH: HTN, GERD, hypercholesteremia Labs: Alb 1.4, WBC 24.5, Plt 416 Meds: caltrate 600+D, Vit B12, Colace, senna, gabapentin, heparin, MVI, miralax, abx, Coenxyme Q10 Skin: charted stage 2 coccyx GI: LBM 06/21, active BS Diet: regular Eatin% x 4 meals Ht: 59 Wt: 91.8kg/202# BMI: 40.8 IBW/%IBW: 97.5#/207% Oma Berg RD, LD - 06/22/2019 15:52 EDT Nutrition Diagnoses Oral or Nutrition Support Intake : Inadequate oral intake Oral or Nutr Support Intake Related To : poor po intake Oral or Nutr Support Intake Evidenced by : pt eating 35% x 4 meals recorded Oral or Nutrition Support Intake Status : Active Nutrient Intake : Increased nutrient needs Nutrient Intake Related to : skin integrity Nutrient Intake As Evidenced by : stage 2 sacrum Nutrient Intake Status : Active Increased Nutrient Needs Comment : protein Oma Berg RD, LD - 06/22/2019 15:52 EDT Nutrition Interventions Meals and Snacks : General/Healthful diet Nutrition Supplement Therapy : Commercial beverage Oma Berg RD, LD - 06/22/2019 15:52 EDT Monitoring/Evaluation Energy Intake : Total energy intake Food Intake : Amount of food Weight Status : Weight Maintanence Oma Berg RD, LD - 06/22/2019 15:52 EDT Nutrition Recommendations Dietitian Recommendations : 1. Continue current diet regimen. TE will add Ensure Enlive BID to aid in po and protein intake. goal; po intake >50% from meals and supplements 2. Monitor wt 2x/wk goal: no significant involuntary changes in wt Nutritional Risk; high Oma Berg RD, LD - 06/22/2019 15:52 EDT documented in this encounter Plan of Treatment Not on file documented as of this encounter Visit Diagnoses Not on filedocumented in this encounter
--- OUTSIDE RECORDS SUMMARY | 2024-08-09 13:21 | XMS_ITS | Encounter Summary ---
Author Organization [email or web address] Address [address] [place] [address] Care Team Providers Care Graphic Design Assistant Name Role Phone Unavailable Primary Care Provider Unavailabl e Encounter Details Date Type Department Care Team (Late st Contact Info) Description 08/27/2018 Transcribed Document [facility] [place] [address] [place] [address] ProviderMariela MD [address] [place] [address] Social History Tobacco Use Types Packs/Day Years [...] Conversion Note - Historical ProviderMD - 08/27/2018 2:00 AM CDT Mental Health Case Manager Details Entered On: 08/27/2018 0:45 EDT Performed On: 08/27/2018 2:00 EDT by Peggy Rayo RN Order Details Transport Mode Order Detail : Wheelchair Isolation Precautions Order Detail : Standard Precautions Order Detail : N/A IV Order Detail : 1 Oxygen Order Detail : 1 Nurse Collect Order Detail : 0 Lift/Transfer : Moderate assist Central Line Order Detail : No Room Service : Appropriate Arterial Line : No Peggy Rayo RN - 08/27/2018 0:45 EDT documented in this encounter Plan of Treatment Not on file documented as of this encounter Visit Diagnoses Not on filedocumented in this encounter
--- OUTSIDE RECORDS SUMMARY | 2024-08-09 13:21 | XMS_ITS | Encounter Summary ---
Author Organization [employer] Address [address] [place] [address] Care Team Providers Care Table Machine Operator Name Role Phone Unavailable Primary Care Provider Unavailabl e Encounter Details Date Type Department Care Team (Late st Contact Info) Description 06/26/2019 Transcribed Document [facility] [place] [facility] [place] [address] ProviderMariela MD [facility] [place] [address] Social History Tobacco Use Types [...] Conversion Note - Historical ProviderMD - 06/26/2019 6:42 PM CDT Nutrition Assessment Entered On: 06/27/2019 11:58 EDT Performed On: 06/27/2019 11:58 EDT by Daniella Hunt Dietitian Nutrition Assessment Current Nutrition Regimen Comment : 06/26: Rec'd routine consult for new LTAC admit + BMI>40 (BMI=43.7). ? stg [address] nutrition assessment @ E. Previously rec'ing ensure BID; RD to continue per pt request. Pt reports okay appetite; RD observed ~80% of breakfast eaten this am. Pt reports a sore throat from intubation. No UWL. RD provided pt w/ menu to order lunch. Will continue to monitor. Dx: periprosthetic L knee infection (s/p I&D, debridement, washout, and poly-exchange), bacteremia, sepsis, L knee cellulitis, s/p toxic/metabolic encephalopathy, acute blood loss anemia, elyte disturbance, elevated inflammatory markers, osteoarthritis PMH: HTN, hypothyroidism, hypercholesterolemia, cardiac murmur, GERD, hypoalbuminemia, SHERRY, morbid obesity Meds: os zenia 500 D, Vit B12, senna, abx, synthroid, mag ox, MVI, protonix, miralax, statin, florastor, coQ10, pain prn, senna prn Labs: Alb 2.4, ALT 11, CRP 6.2, WBC 10.6, PLT 431 Skin: LE edema; stg 2 PU coccyx per [facility] documentation GI: LBM 06/25, +BS Diet: regular Intakes: 65% x 5 meals @ [facility] Ht: 59 Wt: 216# (06/25) [facility] Wt hx: 91.8kg/202# (06/18) UBW: 200# per pt BMI: 43.7 IBW/%IBW: 97.5#/207% Daniella Hunt Dietitian - 06/27/2019 13:50 EDT Nutrition Assessment Reason : Automatic referral Daniella Hunt Dietitian - 06/27/2019 11:57 EDT Nutrition Diagnoses Nutrient Intake : Increased nutrient needs Nutrient Intake Related to : skin integrity Nutrient Intake As Evidenced by : documented stg 2 PU coccyx @ [facility] Nutrient Intake Status : Active Increased Nutrient Needs Comment : protein Weight : Obese, Class III Weight Related to : lifestyle Weight As Evidenced by : BMI=43.7 Weight Status : Active Daniella Hunt Dietitian - 06/27/2019 13:50 EDT Nutrition Interventions Meals and Snacks : General/Healthful diet Nutrition Supplement Therapy : Commercial beverage Daniella Hunt Dietitian - 06/27/2019 13:50 EDT Monitoring/Evaluation Energy Intake : Total energy intake Food Intake : Amount of food Protein Intake : Total protein Weight Status : Weight Maintanence Gastrointestinal Function : Bowel Function Integumentary : Pressure Ulcer Status Daniella Hunt Dietitian - 06/27/2019 13:50 EDT Nutrition Recommendations Dietitian Recommendations : 1. Continue current diet regimen. RD to provide Ensure BID to promote intakes. Goal: >50% po intake 2. Obtain wt 2x/wk. Goal: no unintended wt changes moderate risk Nutrition Care Level : Moderate Daniella Hunt Dietitian - 06/27/2019 13:50 EDT Electronically signed by [facility], [facility] Conversion Mathematical Scientist Cerner at 06/16/2022 8:08 PM CDT documented in this encounter Plan of Treatment Not on file documented as of this encounter Visit Diagnoses Not on filedocumented in this encounter
--- OUTSIDE RECORDS SUMMARY | 2024-08-09 13:21 | XMS_ITS | Encounter Summary ---
Author Organization [employer] Address [address] [place] [address] Care Team Providers Care Polymerization Kettle Operator Name Role Phone Unavailable Primary Care Provider Unavailabl e Encounter Details Date Type Department Care Team (Late st Contact Info) Description 07/09/2019 Transcribed Document [facility] [place] [address] [place] [address] ProviderMariela MD [address] [place] [id number] Social History Tobacco Use Types Packs/Day Years [...] Conversion Note - Historical ProviderMD - 07/09/2019 2:00 AM CDT Cloth Bale Header Details Entered On: 07/09/2019 6:14 EDT Performed On: 07/09/2019 2:00 EDT by GREGOR WOODS RN Order Details Transport Mode Order Detail : Stretcher/Gurney Isolation Precautions Order Detail : Standard Precautions Order Detail : N/A IV Order Detail : 0 Oxygen Order Detail : 1 Nurse Collect Order Detail : 1 Lift/Transfer : Moderate assist Central Line Order Detail : Yes Room Service : Appropriate Arterial Line : No GREGOR WOODS RN - 07/09/2019 6:14 EDT documented in this encounter Plan of Treatment Not on file documented as of this encounter Visit Diagnoses Not on filedocumented in this encounter
--- OUTSIDE RECORDS SUMMARY | 2024-08-09 13:22 | XMS_ITS | Encounter Summary ---
Author Organization [employer] Address [address] [place] [address] Care Team Providers Care Clerical Investigator Name Role Phone Unavailable Primary Care Provider Unavailabl e Encounter Details Date Type Department Care Team (Late st Contact Info) Description 08/28/2018 Transcribed Document [facility] [place] [address] [place] [address] ProviderMariela MD [address] [place] [address] Social History Tobacco Use Types Packs/Day Years [...] Conversion Note - Historical ProviderMD - 08/28/2018 5:00 AM CDT Chart Check - Review Order Profile Entered On: 08/28/2018 4:53 EDT Performed On: 08/28/2018 5:00 EDT by Pina Reina RN Chart Check Powerplans Initiated/Discontinued as Appropriate : Yes All Active Orders Reviewed : Yes Pina Reina RN - 08/28/2018 4:53 EDT documented in this encounter Plan of Treatment Not on file documented as of this encounter Visit Diagnoses Not on filedocumented in this encounter
--- OUTSIDE RECORDS SUMMARY | 2024-08-09 13:22 | XMS_ITS | Encounter Summary ---
Author Organization [employer] Address [address] [place] [address] Care Team Providers Care Flexographic Press Helper Name Role Phone Unavailable Primary Care Provider Unavailabl e Encounter Details Date Type Department Care Team (Late st Contact Info) Description 08/19/2020 Transcribed Document [facility] [place] [facility] [place] [address] ProviderMariela MD [address] [place] [address] Social History Tobacco Use Types [...] Cerner Conversion Note - Historical ProviderMD - 08/19/2020 3:20 PM CDT UM Authorization Entered On: 08/19/2020 15:20 EDT Performed On: 08/19/2020 15:20 EDT by TIESHA AQUINO RN-Utilization Review Primary Insurance Authorization Authorization and Policy Numbers : Insurance 1 Health Plan: [facility] MEDICARE ADVANTAGE Policy Number: [id number] Authorization Number: [id number] Insurance Primary Name : [employer] MEDICARE ADVANTAGE Policy Number: [id number] Authorization Status-Primary : Admit approved Reference Number-Primary : [id number] Authorization Number-Primary : [id number] Number of Days Authorized-Primary : 0 Day(s) Authorized Service Begin Date-Primary : 08/20/2020 EDT Authorized Service End Date-Primary : 08/20/2020 EDT Authorization Comments-Primary : Note on [facility] website:Patient was initially scheduled for Right Patellar Tendon Reconstruction 08/20/20, outpatient which did not require an auth. Due to further physician review with additional providers over the weekend the surgery has been changed to Right Total Knee Revision with Patellar Tendon Reconstruction 08/20/20, inpatient. A much larger implant will be inserted due to instability. Patient is currently at an assisted living facility. She is no longer ambulating, wheelchair bound requiring max assistance with transfer. She is in severe pain and unable to care for herself due to the need for surgery. Historical Authorization Comments-Primary : Comment 1: [facility] Medicare approved per website for 1 day (TIESHA AQUINO RN-Utilization Review 08/19/2020 15:14) TIESHA AQUINO RN-Utilization Review - 08/19/2020 15:20 EDT documented in this encounter Plan of Treatment Not on file documented as of this encounter Visit Diagnoses Not on filedocumented in this encounter
--- OUTSIDE RECORDS SUMMARY | 2024-08-09 13:22 | XMS_ITS | Encounter Summary ---
Author Organization [employer] Address [address] [place] [address] Care Team Providers Care I&C Tech Name Role Phone Unavailable Primary Care Provider Unavailabl e Encounter Details Date Type Department Care Team (Late st Contact Info) Description 08/24/2020 Transcribed Document [facility] [place] [facility] [place] [address] ProviderMariela MD [address] [place] [address] Social History Tobacco Use Types Packs/Day [...] Conversion Note - Historical ProviderMD - 08/24/2020 1:15 PM CDT Patient: SOFIA GILL Age: 80 years Sex: Female : 1940 Associated Diagnoses: Acute blood loss anemia; Acute kidney injury; Right knee pain; S/p R TKA revision; Status post quadriceps tendon repair; HTN (hypertension); Hypercholesteremia; Hypothyroid; Chronic venous insufficiency; A. fib; Sleep apnea; Obesity (BMI 30-39.9) Author: DONNA DRIVER MD-INT Basic Information awake alert comfortable, Sitting on the chair by PT/OT Castellano catheter removed Improving renal function Had a transfusion of 2 units of packed RBCs yesterday Review of Systems Constitutional: No fever, No [...] EDT Chloraseptic Menthol 1.4% topical spray: 5 Manns Choice, Oral, Manns Choice, Q2H, PRN for Sore Throat, Routine, Start [...] EDT fluticasone 50 mcg/inh nasal spray: 2 Manns Choice, Nostrils Both, Manns Choice, BID, PRN for Allergies, Routine, Start 08/20/20 [...] Refill(s) fluticasone 50 mcg/inh nasal spray: 2 Manns Choice, Nostrils Both, Manns Choice, BID, PRN Allergies, 0 Refill(s) furosemide 40 [...] Oral, Daily fluticasone 0.05% nasal spray 2 Manns Choice, Nostrils Both, BID magnesium hydroxide 8% liq [...] Oral, Q4H phenol 1.4% throat spray 5 Manns Choice, Oral, Q2H senna 8.6 mg tab 8.6 [...] Sleep apnea Physical Examination VS/Measurements Vital Measurements 08/24/2020 9:26 EDT Blood Pressure Source Non-Invasive BP Device Blood Pressure Position Supine Systolic Blood Pressure 114 mmHg Diastolic Blood Pressure 44 mmHg LOW Mean Arterial Pressure (MAP)-BMDI 59 Temperature Source Oral Temperature Mode Fahrenheit Temperature, Fahrenheit 98.7 Deg F Clinical Temperature, C 37.1 Deg C Heart Rate Monitored 88 bpm Respiratory Rate 16 Breaths/Min Oxygen Saturation 100 % Oxygen Therapy Mode Room air General: Alert and oriented, No acute distress. [...] groin. Musculoskeletal: Right lower extremity in a cast. Integumentary: Warm, Intact, No rash. Neurologic: Alert, Oriented, No focal deficits. Psychiatric: Cooperative, Appropriate mood & affect. Review / Management Results review: All Results 08/24/2020 3:34 EDT Sodium Level 139 mmol/L Potassium Level 4.4 mmol/L Chloride Level 104 mmol/L Carbon Dioxide Level 29 mmol/L Anion Gap 10 Glucose Level 93 mg/dL Blood Urea Nitrogen 53 mg/dL HI Creatinine Level 0.95 mg/dL eGFR >60 mL/min/1.73m2 eGFR NonAfrican 57 mL/min/1.73m2 LOW Bun/Creatinine 55.8 HI Calcium Level 7.7 mg/dL LOW Protein Total 4.8 Gram/dL LOW Albumin Level 2.1 Gram/dL LOW Globulin 2.7 Gram/dL A/G Ratio 0.8 LOW Bilirubin Total 0.5 mg/dL Alk Phos 59 Units/Liter AST 14 Units/Liter ALT 7 Units/Liter LOW WBC 9.9 K/uL RBC 3.03 Million/uL LOW Hgb 9.4 Gram/dL LOW Hct 28.3 % LOW MCV 93.4 fL MCH 31.0 pg MCHC 33.2 Gram/dL Platelet Count 248 K/uL MPV 9.7 fL RDW 13.4 % Neut % 60.2 % Neut # 5.95 K/uL Lymph % 24.3 % Lymph # 2.40 K/uL Baca % 11.0 % Baca # 1.09 K/uL HI Eos % 4.0 % Eos # 0.40 K/uL Baso % 0.2 % Baso # 0.02 K/uL Slide Review No IG# 0 x10(3)/uL IG% 0 % 08/23/2020 4:28 EDT Sodium Level 135 mmol/L [...] 7.0 Gram/dL LOW Hct 21.8 % LOW . Condition: Stable. Impression and [...] renal function, blood glucose, and urine output. Pain control. DVT prophylaxis. Close monitoring H&H. Close monitoring renal function. Pending insurance approval for rehab/usp facility. documented in this encounter Plan of Treatment Not on file documented as of this encounter Visit Diagnoses Not on filedocumented in this encounter
--- OUTSIDE RECORDS SUMMARY | 2024-08-09 13:22 | XMS_ITS | Encounter Summary ---
Author Organization [employer] Address [address] [place] [address] Care Team Providers Care Recording Artist Name Role Phone Unavailable Primary Care Provider Unavailabl e Encounter Details Date Type Department Care Team (Late st Contact Info) Description 07/07/2019 Transcribed Document [facility] [address] [place] [address] ProviderMariela MD [address] [id number] Social History Tobacco Use Types Packs/Day Years Used Date Smoking Tobacco: Never Assessed Comments Unknown Sex and Gender Information Value Date Recorded Sex Assigned at Female 09/02/2021 8:57 PM CDT Legal Sex Female 6:58 PM CDT Gender Identity Female 09/02/2021 8:57 PM CDT Sexual Orientation Not on file documented as of this encounter Miscellaneous Notes * Cerner Conversion Note - Historical ProviderMD - 07/07/2019 5:00 AM CDT Chart Check - Review Order Profile Entered On: 07/07/2019 5:04 EDT Performed On: 07/07/2019 5:00 EDT by Georgina Olivo RN Chart Check Powerplans Initiated/Discontinued as Appropriate : Yes All Active Orders Reviewed : Yes Georgina Olivo RN - 07/07/2019 5:04 EDT documented in this encounter Plan of Treatment Not on file documented as of this encounter Visit Diagnoses Not on filedocumented in this encounter
--- OUTSIDE RECORDS SUMMARY | 2024-08-09 13:22 | XMS_ITS | Encounter Summary ---
Author Organization [employer] Address [address] [place] [address] Care Team Providers Care Floor Manager Name Role Phone Unavailable Primary Care Provider Unavailabl e Encounter Details Date Type Department Care Team (Late st Contact Info) Description 06/23/2019 Transcribed Document [facility] [place] Family Medicine [facility] [place] [address] ProviderMariela MD [facility] [place] [address] Social History Tobacco Use Types [...] Cerner Conversion Note - Historical ProviderMD - 06/23/2019 6:49 PM CDT Patient: SOFIA GILL Age: 79 years Sex: Female : 1940 Associated Diagnoses: None Author: ARA JONES MD-INF ID Progress Note CC: Left knee pain Current antimicrobial therapy: Rocephin IV Subjective: Patient underwent aggressive irrigation debridement stable this afternoon, HD stable, no fevers today pain stable. Objective Vitals Signs (last 24 hrs) Last Charted Minimum Maximum Temp 97.9 (JUN 22 17:52) 97.9 (JUN 22 17:52) 98.2 (JUN 21 21:25) Mon HR 73 (JUN 22 17:52) 71 (JUN 22 01:16) 80 (JUN 21 20:11) Resp Rate 16 (JUN 22 17:52) 16 (JUN 21 20:11) 16 (JUN 21 20:11) SBP 114 (JUN 22 17:52) L 87 (JUN 22 01:16) 114 (JUN 22 13:31) DBP L 50 (JUN 22 17:52) L 39 (JUN 22 05:00) L 50 (JUN 22 17:52) MAP 59 (JUN 22 17:52) 51 (JUN 22 03:19) 61 (JUN 22 13:31) SpO2 100 (JUN 22 17:52) L 91 (JUN 22 03:19) 100 (JUN 22 01:16) Physical Examination: Gen: Alert, nervous about surgery but stable today HEENT: NC/AT, PERRLA, EOMI, sclera nonicteric, no conjunctival injection RESP: CTA bilaterally without rhonchi, rales, or wheezes. Nonlabored breathing CV: RRR, loud systolic murmur. GI: BS normoactive in all 4 quadrants, soft, nontender, nondistended : No chou in place MS: to 3+ edema bilaterally knees, both knees are warm to touch. Left knee with some postoperative dressing in place with drains in place SKIN: No eruptions, lesions, or rashes, PICC in place NEURO: No focal deficits moves all 4 extremities Labs:Labs (Last four charted values) WBC H 20.4 (JUN 22) H 24.5 (JUN 21) H 22.8 (JUN 19) H 24.7 (JUN 18) HB L 9.2 (JUN 22) L 7.5 (JUN 21) L 7.5 (JUN 21) L 8.4 (JUN 20) HCT L 29.0 (JUN 22) L 23.7 (JUN 21) L 23.7 (JUN 21) L 26.3 (JUN 20) Plt H 403 (JUN 22) H 416 (JUN 21) H 389 (JUN 19) 281 (JUN 18) Na L 134 (JUN 22) 136 (JUN 21) L 133 (JUN 20) L 135 (JUN 19) K 4.8 (JUN 22) 4.5 (JUN 21) 4.4 (JUN 20) 4.8 (JUN 20) Cl 103 (JUN 22) 103 (JUN 21) L 101 (JUN 20) 102 (JUN 19) CO2 28 (JUN 22) 27 (JUN 21) 25 (JUN 20) 22 (JUN 19) BUN H 28 (JUN 22) 21 (JUN 21) H 23 (JUN 20) H 26 (JUN 19) Cr 0.97 (JUN 22) 0.63 (JUN 21) 0.66 (JUN 20) 0.75 (JUN 19) Glu R H 107 (JUN 22) 101 (JUN 21) 93 (JUN 20) 102 (JUN 19) Ca L 7.4 (JUN 22) L 7.1 (JUN 21) L 7.9 (JUN 20) L 7.8 (JUN 19) Lactic 1.1 (JUN 16) PT 11.5 (JUN 22) H 12.4 (JUN 20) INR 1.1 (JUN 22) H 1.2 (JUN 20) AST 20 (JUN 22) 25 (JUN 21) 27 (JUN 19) 26 (JUN 18) ALT 16 (JUN 22) 16 (JUN 21) 21 (JUN 19) 21 (JUN 18) ALK P 92 (JUN 22) 103 (JUN 21) H 204 (JUN 19) H 188 (JUN 18) T Bili 0.2 (JUN 22) 0.2 (JUN 21) 0.3 (JUN 19) 0.3 (JUN 18) PTN L 4.8 (JUN 22) L 4.4 (JUN 21) L 5.3 (JUN 19) L 4.4 (JUN 18) ALB L 1.6 (JUN 22) L 1.4 (JUN 21) L 1.7 (JUN 19) L 1.5 (JUN 18) Micro: [facility]: 06/15 [facility] Blood cultures positive for group B strep and 2/2 bottles SJE: 06/16 fluid aspiration of left knee shows 118,150 white blood cells, GPC 06/16 repeat blood cultures with Group B Strep 06/16 MRSA surveillance culture and pro/pending 06/16 Urine culture in process/pending Rad: Radiology Results (Last 48 hours) [id number] -- 06/16/2019 21:08 CR Knee 1 or 2 Vws LT (06/23/2019 14:15) Result: LEFT KNEEHISTORY: Left knee pain. Recent surgery .FINDINGS: A two view exam demonstrates surgical changes of left kneearthroplasty. The hardware has a normal appearance. Cerclage wire isidentified anteriorly. No fracture is identified. IMPRESSION: Surgical changes of left knee arthroplasty without hardwarecomplication. Images reviewed, interpreted, and dictated by Dr. Justice Camacho.Transcribed by Ángel George, PA-CI have personally viewed, interpreted and dictated the examination. Jocelyn read and agree with the above final transcribed report. TTE negative for endocarditis Problem list: - 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 S/p synovial fluid aspiration on 06/16, 118,000 WBC, m - Streptococcus agalactiae bacteremia: cultures positive at OSH, repeats also positive here. TTE negative - Left knee cellulitis: improving - Neutrophilic leukocytosis: no improvement - Acute encephalopathy - Sepsis due to above - Acute renal insufficiency improved - Obesity - Cardiac murmur: pt says chronic. 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 Saenz's surgical washout as AKA was decided against due to high risk for further decompensation and chronic immobility attempting to salvage left leg with extensive debridement and revision will need IV antibiotics planning at least 8 weeks then lifelong oral suppression RECOMMENDATIONS/PLANS: - continue ceftriaxone 2 gm daily and plan on 8 weeks of therapy with PICC line in lifelong oral suppression - Drains in place will monitor will monitor documented in this encounter Plan of Treatment Not on file documented as of this encounter Visit Diagnoses Not on filedocumented in this encounter
--- OUTSIDE RECORDS SUMMARY | 2024-08-09 13:22 | XMS_ITS | Encounter Summary ---
Author Organization [employer] Address [address] [place] [address] Care Team Providers Care Cardiology Tech Name Role Phone Unavailable Primary Care Provider Unavailabl e Encounter Details Date Type Department Care Team (Late st Contact Info) Description 08/21/2020 Transcribed Document [facility] [place] [facility] [place] [address] ProviderMariela MD [address] [place] [address] Social History Tobacco Use Types [...] Conversion Note - Historical ProviderMD - 08/21/2020 4:30 PM CDT Patient: SOFIA GILL Age: 80 years Sex: Female : 1940 Associated Diagnoses: Right knee pain; S/p R TKA revision; Status post quadriceps tendon repair; HTN (hypertension); Hypercholesteremia; Hypothyroid; Chronic venous insufficiency; A. fib; Sleep apnea; Obesity (BMI 30-39.9) Author: DONNA DRIVER MD-INT Basic Information awake alert but in pain ???Has a Castellano catheter ???Has a cast from her foot to her groin ???No chest pain or trouble breathing ???No nausea vomiting ???Hypotensive ???Needs to go to [facility] facility on discharge and when stable Review of Systems Constitutional: No fever, No chills. Eye: No discharge, No blurring, No double vision, No visual disturbances. Ear/Nose/Mouth/Throat: No nasal congestion, No sore throat. Respiratory: No shortness of breath, No cough. Cardiovascular: No chest pain, No palpitations. Gastrointestinal: No nausea, No vomiting. Genitourinary: No change in urine stream. Musculoskeletal: Negative. Integumentary: Negative. Neurologic: Alert and oriented X4. [...] EDT Chloraseptic Menthol 1.4% topical spray: 5 Bigelow, Oral, Bigelow, Q2H, PRN for Sore Throat, Routine, Start [...] EDT fluticasone 50 mcg/inh nasal spray: 2 Bigelow, Nostrils Both, Bigelow, BID, PRN for Allergies, Routine, Start 08/20/20 [...] Refill(s) fluticasone 50 mcg/inh nasal spray: 2 Bigelow, Nostrils Both, Bigelow, BID, PRN Allergies, 0 Refill(s) furosemide 40 [...] Oral, Daily fluticasone 0.05% nasal spray 2 Bigelow, Nostrils Both, BID magnesium hydroxide 8% liq [...] Oral, Q4H phenol 1.4% throat spray 5 Bigelow, Oral, Q2H promethazine 25 mg tab 12.5 [...] Sleep apnea Physical Examination VS/Measurements Vital Measurements 08/21/2020 13:34 EDT Systolic Blood Pressure 90 mmHg Diastolic Blood Pressure 52 mmHg LOW Mean Arterial Pressure (MAP)-BMDI 60 Temperature Source Oral Temperature Mode Fahrenheit Temperature, Fahrenheit 98.6 Deg F Clinical Temperature, C 37 Deg C Heart Rate Monitored 98 bpm Respiratory Rate 18 Breaths/Min Oxygen Saturation 95 % Oxygen Therapy Mode Room air General: [...] strength, No swelling. Integumentary: Warm, Intact, No rash. Neurologic: Alert, Oriented, No focal deficits. Psychiatric: Cooperative, Appropriate mood & affect. Review / Management Condition: Stable. Impression and Plan Diagnosis Right knee pain - Admitting, Medical. S/p [...] renal function, blood glucose, and urine output. Case management for rehabilitation referral/[facility] facility. documented in this encounter Plan of Treatment Not on file documented as of this encounter Visit Diagnoses Not on filedocumented in this encounter
--- OUTSIDE RECORDS SUMMARY | 2024-08-09 13:22 | XMS_ITS | Encounter Summary ---
Author Organization [employer] Address [address] [place] [address] Care Team Providers Care Utility Sales Representative Name Role Phone Unavailable Primary Care Provider Unavailabl e Encounter Details Date Type Department Care Team (Late st Contact Info) Description 06/26/2019 Transcribed Document [facility] [place] Family Medicine [address] [place] [address] ProviderMariela MD [facility] [place], [place] [address] Social History Tobacco Use Types Packs/Day Years [...] Historical ProviderMD - 06/26/2019 6:42 PM CDT Provider Notification Entered On: 06/28/2019 6:18 EDT Performed On: 06/26/2019 18:42 EDT by Bibi Gallagher, RN Provider Notification Provider Not Notified Reason : Orders exist for treatment of abnormal results Results to Provider Comment : patient wears cpap HS Bibi Gallagher, EDDIE - 06/28/2019 6:18 EDT documented in this encounter Plan of Treatment Not on file documented as of this encounter Visit Diagnoses Not on filedocumented in this encounter
--- OUTSIDE RECORDS SUMMARY | 2024-08-09 13:22 | XMS_ITS | Encounter Summary ---
Author Organization [employer] Address [address] [place] [address] Care Team Providers Care Rating Specialist Name Role Phone Unavailable Primary Care Provider Unavailabl e Encounter Details Date Type Department Care Team (Late st Contact Info) Description 07/18/2019 Transcribed Document [facility] [place] [facility] [place] [address] ProviderMariela MD [facility] [place] [address] Social History Tobacco Use Types [...] Cerner Conversion Note - Historical ProviderMD - 07/18/2019 5:22 PM CDT Patient: SOFIA GILL Age: 79 [...] pain under control, no trouble w. urination. ???Had yahaira removed at Dr. Saenz office ???Scheduled to go to [facility] facility in a.m. Review of Systems Constitutional: No [...] 0.9% 100 mL 2 Gram, IV Piggyback, [id number] cyanocobalamin 1,000 mcg tab 5,000 mcg 5 [...] Oral, Q4H fluticasone 0.05% nasal spray 2 Rock, Nostrils Both, BID magnesium hydroxide 8% liq [...] Sleep apnea Physical Examination VS/Measurements Vital Measurements 07/18/2019 13:00 EDT Systolic Blood Pressure 113 mmHg Diastolic Blood Pressure 83 mmHg Mean Arterial Pressure (MAP)-BMDI 90 Temperature, Fahrenheit 99.4 Deg F Clinical Temperature, C 37.4 Deg C Heart Rate Monitored 99 bpm Respiratory Rate 18 Breaths/Min Oxygen Saturation 99 % Oxygen Therapy Mode Room air General: [...] % 21.2 % Lymph # 1.73 x10(3)/uL Blackford % 9.7 % HI Blackford # 0.79 K/uL Eos % 5.8 % [...] renal function, blood glucose, and urine output. In urine IV antibiotics as recommended by infectious disease. For [facility] facility in a.m. to continue her care. documented in this encounter Plan of Treatment Not on file documented as of this encounter Visit Diagnoses Not on filedocumented in this encounter
--- OUTSIDE RECORDS SUMMARY | 2024-08-09 13:22 | XMS_ITS | Encounter Summary ---
Author Organization [employer] Address [address] [place] [address] Care Team Providers Care Terminal Block Assembler Name Role Phone Unavailable Primary Care Provider Unavailabl e Encounter Details Date Type Department Care Team (Late st Contact Info) Description 08/27/2018 Transcribed Document [facility] [place] Family Medicine [address] [place] [address] ProviderMariela MD [address] [place], [place] [id number] Social History Tobacco Use Types Packs/Day Years [...] Conversion Note - Historical ProviderMD - 08/27/2018 9:00 AM CDT Pain Assessment Entered On: 08/27/2018 18:20 EDT Performed On: 08/27/2018 9:12 EDT by SWATI TOLEDO RN Intervention Information: acetaminophen Performed by SWATI TOLEDO RN on 08/27/2018 08:12:00 EDT acetaminophen,1000mg Oral Pain Assessment Pain Assessment : Follow-up assessment Pain Scale Goal : 3 SWATI TOLEDO RN - 08/27/2018 18:20 EDT documented in this encounter Plan of Treatment Not on file documented as of this encounter Visit Diagnoses Not on filedocumented in this encounter
--- OUTSIDE RECORDS SUMMARY | 2024-08-09 13:22 | XMS_ITS | Encounter Summary ---
Author Organization [employer] Address [address] [place] [address] Care Team Providers Care Outside Machinist Supervisor Name Role Phone Unavailable Primary Care Provider Unavailabl e Encounter Details Date Type Department Care Team (Late st Contact Info) Description 08/28/2018 Transcribed Document [facility] [place] Family Medicine [address] [place] [address] ProviderMariela MD [address] [place] [address] Social History Tobacco Use Types [...] Conversion Note - Historical ProviderMD - 08/28/2018 6:00 PM CDT Patient: SOFIA BARLOW Age: 78 Years Sex: Female : 1940 Subjective Ms. Barlow continues to do well. Pain is controlled. Still having some issues with constipation but receiving stool softener and if needed she has a Fleet enema available. Vital Signs T: 36.7 ??C TMIN: 36.7 ??C TMAX: 37.1 ??C HR: 78(Monitored) RR: 16 BP: 109/51 SpO2: 95% Intake & Output Totals Last 24 Hours (7a-7a) Input Total: 720 mL Output Total: 0 mL Balance: 720 mL Physical Exam General: Alert and oriented, well nourished, no acute distress. Eye: PERRL, EOMI, normal conjunctiva HEENT: Normocephalic, , moist oral mucosa, Neck: Supple, non-tender, Lungs: Clear to auscultation , non-labored respiration Heart: Normal rate, regular rhythm, no edema Abdomen: Soft, non-tender, non-distended, normal bowel sounds, Musculoskeletal: Has scar from recent surgery on right knee with yahaira intact. dry drainage but nothing active or purulent appearing, Mild generalized edema. Skin: Skin is warm, dry and pink. no actively bleeding; scattered ecchymotic areas; the LLE frontal midline incision appears to be intact w/o active bleeding. Psychiatric: Cooperative, appropriate mood and affect Neurologic: Awake, alert, and oriented Assessment/Plan Acute kidney injury, resolved 08/25/2018 -Cr normal today. On admission Cr was 1.94 Had likely pre renal component Her lisinopril has been resumed now and tolerating Hypertension On lisinopril Doing well with her home Lasix and renal function is stable S/p Right Total Knee Arthroplasty by Dr. Epps 08/22/2018 Patient did develop some swelling on right knee with ecchymosis US without DVT noted Active flexion instructions as instructed by ortho Morbid obesity will benefit from eventual loss Complicating all aspects of her care Constipation- Miralax and stool softeners PRN, Fleet enema as well is available. Hyperlipidemia- Continue Crestor. Hypothyroidism- Continue Synthroid. SHERRY- Continue CPAP. Asthma- Albuterol PRN. Seasonal Allergies- Continue Levocetirizine. Depression- Continue Cymbalta. VTE Prophylaxis - Medical Sequential Compression Device [...] Keflex, 500 mg= 2 Cap, Oral, Q6HInt Lasix, 40 mg= 1 Tab, Oral, Daily lisinopril, 10 mg= 1 Tab, Oral, Daily loratadine, 10 mg= 1 Tab, Oral, Daily metoclopramide, 5 mg= 1 mL, IV Push, Q4H, PRN multivitamin, 1 Tab, Oral, Daily naloxone, 0.1 mg= 0.25 mL, IV Push, Q5Min, PRN Os-Ramu 500 + D, 1 Tab, Oral, BID oxyCODONE, 10 mg= 2 Tab, Oral, Q4H, PRN oxyCODONE, 5 mg= 1 Tab, Oral, Q4H, PRN polyethylene glycol 3350, 17 Gram= 1 Packet, Oral, Daily Protonix, 40 mg= 1 Tab, Oral, Daily Proventil HFA, 1 Puff, Inhalation, QID, PRN senna, 8.6 mg= 1 Tab, Oral, At Bedtime, PRN Senokot S, 2 Tab, Oral, At Bedtime Synthroid, 100 mcg= 1 Tab, Oral, Daily traMADol, 100 mg= 2 Tab, Oral, Q6H, PRN Tylenol, 1000 mg= 2 Tab, Oral, TID Zofran, 4 mg= 2 mL, IV Push, Q8H, PRN Diagnostic Results Group Detail Date Value w/Units Flags Normal Range Comment Ind General Chemistry Sodium Level 08/28/2018 04:03:00 EDT 139 mmol/L 136-146 General Chemistry Potassium Level 08/28/2018 04:03:00 EDT 4.1 mmol/L 3.5-5.1 General Chemistry Chloride Level 08/28/2018 04:03:00 EDT 103 mmol/L 102-112 General Chemistry Carbon Dioxide Level 08/28/2018 04:03:00 EDT 30 mmol/L 21-32 General Chemistry Anion Gap 08/28/2018 04:03:00 EDT 10 9-20 General Chemistry Glucose Level 08/28/2018 04:03:00 EDT 153 mg/dL HI 74-106 Y General Chemistry Blood Urea Nitrogen 08/28/2018 04:03:00 EDT 27 mg/dL HI 7-22 General Chemistry Creatinine Level 08/28/2018 04:03:00 EDT 0.80 mg/dL 0.55-1.02 General Chemistry Bun/Creatinine 08/28/2018 04:03:00 EDT 33.8 HI 8.0-20.0 General Chemistry Calcium Level 08/28/2018 04:03:00 EDT 8.0 mg/dL LOW 8.5-10.1 Hematology Hgb 08/26/2018 04:29:00 EDT 9.7 Gram/dL LOW 11.2-15.7 Y Hematology Hct 08/26/2018 04:29:00 EDT 30.3 % LOW 34.1-44.9 Y documented in this encounter Plan of Treatment Not on file documented as of this encounter Visit Diagnoses Not on filedocumented in this encounter
--- OUTSIDE RECORDS SUMMARY | 2024-08-09 13:22 | XMS_ITS | Encounter Summary ---
Author Organization [employer] Address [address] [place] [address] Care Team Providers Care Traffic Sign Supervisor Name Role Phone Unavailable Primary Care Provider Unavailabl e Encounter Details Date Type Department Care Team (Late st Contact Info) Description 06/22/2019 Transcribed Document [facility] [place] [facility] [place] [address] ProviderMariela MD [place] [address] Social History Tobacco Use Types [...] Note - Historical ProviderMD - 06/22/2019 3:00 PM CDT Pain Assessment Entered On: 06/22/2019 16:22 EDT Performed On: 06/22/2019 16:26 EDT by Moni George Rn Intervention Information: acetaminophen Performed by Moni George Rn on 06/22/2019 15:26:00 EDT acetaminophen,1000mg Oral Pain Assessment Pain Assessment : Follow-up assessment Pain Scale Goal : 3 Pain Scale Used : 0-10 Scale Moni George Rn - 06/22/2019 16:22 EDT Pain Scale Intensity : 3 Moni George Rn - 06/22/2019 16:22 EDT Image 4 - Images currently included in the form version of this document have not been included in the text rendition version of the form. documented in this encounter Plan of Treatment Not on file documented as of this encounter Visit Diagnoses Not on filedocumented in this encounter
--- OUTSIDE RECORDS SUMMARY | 2024-08-09 13:22 | XMS_ITS | Encounter Summary ---
Author Organization [employer] Address [address] [place] [address] Care Team Providers Care White Spooler Name Role Phone Unavailable Primary Care Provider Unavailabl e Encounter Details Date Type Department Care Team (Late st Contact Info) Description 07/06/2019 Transcribed Document [facility] [place] [address] [place] [address] ProviderMariela MD [address] [place] [address] Social History Tobacco Use Types Packs/Day Years Used Date Smoking Tobacco: Never Assessed Comments Unknown Sex and Gender Information Value Date Recorded Sex Assigned at Female 09/02/2021 8:57 PM CDT Legal Sex Female 6:58 PM CDT Gender Identity Female 09/02/2021 8:57 PM CDT Sexual Orientation Not on file documented as of this encounter Miscellaneous Notes * Cerner Conversion Note - Historical ProviderMD - 07/06/2019 9:00 PM CDT Patch Check Entered On: 07/07/2019 0:50 EDT Performed On: 07/06/2019 21:00 EDT by Georgina Olivo RN Patch Check Patch Check Result : No Patch Check - Type of Patch : No Patch Found Georgina Olivo RN - 07/07/2019 0:49 EDT documented in this encounter Plan of Treatment Not on file documented as of this encounter Visit Diagnoses Not on filedocumented in this encounter
--- OUTSIDE RECORDS SUMMARY | 2024-08-09 13:22 | XMS_ITS | Encounter Summary ---
Author Organization [employer] Address [address] [place] [address] Care Team Providers Care Light Coil Winder Name Role Phone Unavailable Primary Care Provider Unavailabl e Encounter Details Date Type Department Care Team (Late st Contact Info) Description 07/06/2019 Transcribed Document [facility] [place] Family Medicine [address] [place] [address] ProviderMariela MD [address] [place] [id number] Social History Tobacco Use Types Packs/Day Years [...] Conversion Note - Historical ProviderMD - 07/06/2019 5:00 PM CDT Chart Check - Review Order Profile Entered On: 07/06/2019 18:03 EDT Performed On: 07/06/2019 17:00 EDT by Caitlyn Chauhan Rn Chart Check [employer] Initiated/Discontinued as Appropriate : Yes All Active Orders Reviewed : Yes Caitlyn Chauhan Rn - 07/06/2019 18:03 EDT documented in this encounter Plan of Treatment Not on file documented as of this encounter Visit Diagnoses Not on filedocumented in this encounter
--- OUTSIDE RECORDS SUMMARY | 2024-08-09 13:22 | XMS_ITS | Encounter Summary ---
Author Organization [employer] Address [address] [place] [address] Care Team Providers Care Clinical Unit Educator Name Role Phone Unavailable Primary Care Provider Unavailabl e Encounter Details Date Type Department Care Team (Late st Contact Info) Description 08/28/2018 Transcribed Document [facility] [place] [facility] [place] [facility] [place] [address] ProviderMariela MD [facility] [place] [address] Social History Tobacco Use Types [...] Conversion Note - Historical ProviderMD - 08/28/2018 9:00 PM CDT Pain Assessment Entered On: 08/29/2018 5:50 EDT Performed On: 08/28/2018 22:48 EDT by Mily Dickinson Rn Intervention Information: acetaminophen Performed by Mily Dickinson Rn on 08/28/2018 21:48:00 EDT acetaminophen,1000mg Oral Pain Assessment Pain Assessment : Follow-up assessment Pain Scale Goal : 3 Pain Scale Used : 0-10 Scale Mily Dickinson Rn - 08/29/2018 5:50 EDT Pain Scale Intensity : 1 Mily Dickinson Rn - 08/29/2018 5:50 EDT Image 4 - Images currently included in the form version of this document have not been included in the text rendition version of the form. Electronically signed by Maureen Cornejo Conversion Letter Stamping Machine Operator Cerner at 06/16/2022 8:24 PM CDT documented in this encounter Plan of Treatment Not on file documented as of this encounter Visit Diagnoses Not on filedocumented in this encounter
--- OUTSIDE RECORDS SUMMARY | 2024-08-09 13:22 | XMS_ITS | Encounter Summary ---
Author Organization [employer] Address [address] [place] [address] Care Team Providers Care Professor Of Communication And Writing Name Role Phone Unavailable Primary Care Provider Unavailabl e Encounter Details Date Type Department Care Team (Late st Contact Info) Description 07/18/2019 Transcribed Document [facility] [place] [facility] [place] [address] ProviderMariela MD [facility] [place] [address] Social History Tobacco Use Types [...] Conversion Note - Historical ProviderMD - 07/18/2019 3:10 PM CDT Interdisciplinary Rounds Entered On: 07/18/2019 15:11 EDT Performed On: 07/18/2019 15:10 EDT by HOWIE WETZEL PTA Interdisciplinary Rounds Working Summary Patient's Priority Needs : IV abx -> plan 8 wks (about 5 more weeks) then transition to PO PT/OT Brace in place-> dressing changed daily Current DRG/LOS : 560 Aftercare, musculoskeletal & connective tissue 21-25 days Anticipated DC 07/21/2019 PT Interdisciplinary Rounds Note : pt min A for bed mobility, pt ambulated 50' with RWx and min A, very motivated to discharge to rehab facility HOWIE WETZEL PTA - 07/18/2019 15:10 EDT documented in this encounter Plan of Treatment Not on file documented as of this encounter Visit Diagnoses Not on filedocumented in this encounter
--- OUTSIDE RECORDS SUMMARY | 2024-08-09 13:22 | XMS_ITS | Encounter Summary ---
Author Organization [employer] Address [address] [place] [address] Care Team Providers Care Golf Instructor Name Role Phone Unavailable Primary Care Provider Unavailabl e Encounter Details Date Type Department Care Team (Late st Contact Info) Description 08/24/2020 Transcribed Document [facility] [place] Family Medicine [address] [place] [address] ProviderMariela MD [address] [place], [place] [id number] Social History Tobacco Use Types Packs/Day Years [...] Conversion Note - Historical ProviderMD - 08/24/2020 5:00 AM CDT Chart Check - Review Order Profile Entered On: 08/24/2020 5:52 EDT Performed On: 08/24/2020 5:00 EDT by Rayna Carrizales, Rn Chart Check Powerplans Initiated/Discontinued as Appropriate : Yes All Active Orders Reviewed : Yes Rayna Carrizales, Rn - 08/24/2020 5:52 EDT Electronically signed by Chantal [facility] Conversion Furniture Mover Helper Cerner at 06/16/2022 8:13 PM CDT documented in this encounter Plan of Treatment Not on file documented as of this encounter Visit Diagnoses Not on filedocumented in this encounter
--- OUTSIDE RECORDS SUMMARY | 2024-08-09 13:22 | XMS_ITS | Encounter Summary ---
Author Organization [employer] Address [address] [place] [address] Care Team Providers Care Briefcase Sewer Name Role Phone Unavailable Primary Care Provider Unavailabl e Encounter Details Date Type Department Care Team (Late st Contact Info) Description 08/21/2020 Transcribed Document [facility] [place] [facility] [place] [address] ProviderMariela MD [facility] [place] [address] Social History Tobacco Use Types [...] Conversion Note - Historical ProviderMD - 08/21/2020 1:00 PM CDT Pain Assessment Entered On: 08/21/2020 14:02 EDT Performed On: 08/21/2020 13:13 EDT by Jane Bose RN Intervention Information: acetaminophen Performed by Jane Bose RN on 08/21/2020 12:13:00 EDT acetaminophen,1000mg Oral Pain Assessment Pain Assessment : Follow-up assessment Pain Scale Goal : 3 Pain Scale Used : 0-10 Scale Opioid Adverse Effects : None Pain Improved by Intervention : Yes Jane Bose RN - 08/21/2020 14:02 EDT Pain Scale Intensity : 0 Jane Bose RN - 08/21/2020 14:02 EDT Image 4 - Images currently included in the form version of this document have not been included in the text rendition version of the form. Electronically signed by Interface, Maureen Conversion Director Food And Beverage Cerner at 06/16/2022 8:30 PM CDT documented in this encounter Plan of Treatment Not on file documented as of this encounter Visit Diagnoses Not on filedocumented in this encounter
--- OUTSIDE RECORDS SUMMARY | 2024-08-09 13:22 | XMS_ITS | Encounter Summary ---
Author Organization [employer] Address [address] [place] [address] Care Team Providers Care Etl Programmer Name Role Phone Unavailable Primary Care Provider Unavailabl e Encounter Details Date Type Department Care Team (Late st Contact Info) Description 07/18/[address] [facility] [place] [facility] [place] [address] ProviderMariela MD [facility] [place] [address] Social History Tobacco [...] Conversion Note - Historical ProviderMD - 07/18/2019 10:12 AM CDT Interdisciplinary Rounds Entered On: 07/18/2019 10:13 EDT Performed On: 07/18/2019 10:12 EDT by MASSIEL HENDERSON PharmD, DURGA Interdisciplinary Rounds Working Summary Patient's Priority Needs : IV abx -> plan 8 wks (about 5 more weeks) then transition to PO PT/OT Brace in place-> dressing changed daily Current DRG/LOS : 560 Aftercare, musculoskeletal & connective tissue 21-25 days Anticipated DC 07/21/2019 Pharmacist Interdisciplinary Rounds Note : Patient on ceftriaxone 2 gm daily and plan on 8 weeks of therapy from 06/20 with PICC line followed by chronic lifelong oral suppression and managing warfarin for DVT prophylaxis post Ortho procedure for INR > 2. MASSIEL HENDERSON PharmD, DURGA - 07/18/2019 10:12 EDT documented in this encounter Plan of Treatment Not on file documented as of this encounter Visit Diagnoses Not on filedocumented in this encounter
--- OUTSIDE RECORDS SUMMARY | 2024-08-09 13:22 | XMS_ITS | Encounter Summary ---
Author Organization [employer] Address [address] [place] [address] Care Team Providers Care Misdraw Hand Name Role Phone Unavailable Primary Care Provider Unavailabl e Encounter Details Date Type Department Care Team (Late st Contact Info) Description 07/18/2019 Transcribed Document [facility] [place] [address] [place] [address] ProviderMariela MD [address] [place], [place] [id number] Social History Tobacco Use Types Packs/Day Years [...] Conversion Note - Historical ProviderMD - 07/18/2019 5:00 PM CDT Chart Check - Review Order Profile Entered On: 07/18/2019 17:10 EDT Performed On: 07/18/2019 17:00 EDT by Thuy Littlejohn RN Chart Check Powerplans Initiated/Discontinued as Appropriate : Yes All Active Orders Reviewed : Yes Thuy Littlejohn RN - 07/18/2019 17:10 EDT documented in this encounter Plan of Treatment Not on file documented as of this encounter Visit Diagnoses Not on filedocumented in this encounter
--- OUTSIDE RECORDS SUMMARY | 2024-08-09 13:22 | XMS_ITS | Encounter Summary ---
Author Organization [employer] Address [address] [place] [address] Care Team Providers Care Hospital Clerk Name Role Phone Unavailable Primary Care Provider Unavailabl e Encounter Details Date Type Department Care Team (Late st Contact Info) Description 08/22/2020 Transcribed Document [facility] [place] [facility] [place] [address] ProviderMariela MD [address] [place] [address] Social History Tobacco Use Types [...] Note - Historical ProviderMD - 08/22/2020 4:00 AM CDT Pain Assessment Entered On: 08/22/2020 4:20 EDT Performed On: 08/22/2020 4:13 EDT by Caitlyn Fallon Rn Intervention Information: traMADol Performed by Caitlyn Fallon Rn on 08/22/2020 03:13:00 EDT traMADol,50mg Oral Pain Assessment Pain Assessment : Follow-up assessment Pain Scale Goal : 3 Pain Scale Used : 0-10 Scale Caitlyn Fallon Rn - 08/22/2020 4:20 EDT Pain Scale Intensity : 0 Caitlyn Fallon Rn - 08/22/2020 4:20 EDT Image 4 - Images currently included in the form version of this document have not been included in the text rendition version of the form. Electronically signed by Chantal, Maureen Conversion Biodiesel Process Control Technician Cerner at 06/16/2022 8:03 PM CDT documented in this encounter Plan of Treatment Not on file documented as of this encounter Visit Diagnoses Not on filedocumented in this encounter
--- OUTSIDE RECORDS SUMMARY | 2024-08-09 13:22 | XMS_ITS | Encounter Summary ---
Author Organization [employer] Address [address] [place] [address] Care Team Providers Care Price Checker Name Role Phone Unavailable Primary Care Provider Unavailabl e Encounter Details Date Type Department Care Team (Late st Contact Info) Description 08/21/2020 Transcribed Document [facility] [place] [facility] [place] [address] ProviderMariela MD [address] [place], [place] [id number] Social History Tobacco Use Types Packs/Day Years [...] Conversion Note - Historical ProviderMD - 08/21/2020 7:50 AM CDT UM Authorization Entered On: 08/21/2020 7:51 EDT Performed On: 08/21/2020 7:50 EDT by KARAN WATSON RN-Utilization Review Primary Insurance Authorization Authorization and Policy Numbers : Insurance 1 Health Plan: [facility] MEDICARE ADVANTAGE Policy Number: [id number] Authorization Number: [id number] Insurance Primary Name : [employer] MEDICARE ADVANTAGE Policy Number: [id number] Authorization Status-Primary : Admit approved Reference Number-Primary : [id number] Authorization Number-Primary : [id number] Number of Days Authorized-Primary : 0 Day(s) Authorized Service Begin Date-Primary : 08/20/2020 EDT Authorized Service End Date-Primary : 08/20/2020 EDT Historical Authorization Comments-Primary : Comment 1: Note on [facility] website:Patient was initially scheduled for Right [...] AQUINO, RN-Utilization Review 08/19/2020 15:20) Comment 2: [facility] Medicare approved per website for 1 day (TIESHA AQUINO RN-Utilization Review 08/19/2020 15:14) KARAN WATSON RN-Utilization Review - 08/21/2020 7:50 EDT documented in this encounter Plan of Treatment Not on file documented as of this encounter Visit Diagnoses Not on filedocumented in this encounter
--- OUTSIDE RECORDS SUMMARY | 2024-08-09 13:22 | XMS_ITS | Encounter Summary ---
Author Organization [employer] Address [address] [place] [address] Care Team Providers Care Retail Receiving Clerk Name Role Phone Unavailable Primary Care Provider Unavailabl e Encounter Details Date Type Department Care Team (Late st Contact Info) Description 07/17/2019 Transcribed Document [facility] [place] Medicine [facility] [place] [address] ProviderMariela MD [address] [place] [address] Social History Tobacco Use Types [...] Conversion Note - Historical ProviderMD - 07/17/2019 10:31 AM CDT Care Management Assessment/Plan Entered On: 07/17/2019 10:32 EDT Performed On: 07/17/2019 10:31 EDT by СВЕТЛАНА WANG Care Management Note Care Management Note : 07/17/2019 faxed clinical review the [facility] at [phone] to request approval for extended ltac services. Auth#[id number], awaiting approval. CM/Discharge plan attached to review. Care Management Note Report : СВЕТЛАНА WANG - 07/17/19 09:06:05 07/17/[address] Jaffe's progress note, yahaira may be removed if okay with Dr. Saenz's office. Per our WOCN, Dr. Saenz's office said they need to see her before they make that decision. Appt scheduled for tomorrow, 07/18/2019 @ 1415; [facility] round-trip transport scheduled for 1315 pick-up ([id number]). Spoke with Lexy Valdez, they have not yet began the patient's insurance preauth, they will today, and be ready to admit on Wednesday. Dr. Jaffe notified and in agreement. [facility] rescheduled for discharge 07/19/2019 @ 1400 ([id number]). YOANNA ARAUJO RN - 07/14/19 15:41:31 Yoanna Araujo 07/13/2019 1500 - patient has accepted bed offer at [facility], she will be transported on WednesdayJuly 16 at 2pm by [facility] Confirmation # [id number]. She declined the bed offer at [facility]. Dr. Jaffe notified of discharge plan. YOANNA ARAUJO RN - 07/13/19 14:37:44 Yoanna Araujo 07/13/2019 1400 received call from Ratna with [facility] offering patient a bed, Received call from Isabelle with [facility] she is looking at patient and needed a current height and weight. Still waiting to see if any other bed offers come through. I also sent referral to [facility]. YOANNA ARAUJO RN - 07/13/19 11:04:03 Yoanna Araujo 07/13/2019 1100 faxed out referral for placement for patient to [facility] nursing [facility] rehab, [facility]. Awaiting call backs. СВЕТЛАНА WANG - 07/12/19 12:19:17 07/12/2019 Fax received from [facility] with approval for LTAC services with a request for updated discharge plans and clinical info to support needs if not discharged. Auth#[id number]. Clinical review or discharge summary to be faxed by 07/17/2019. YOANNA ARAUJO RN - 07/12/19 08:39:48 Yoanna Araujo 07/12/2019 0830 - faxed clinical review the [facility] at [phone] to request approval for extended ltac services. Auth#[id number], awaiting approval. YOANNA ARAUJO RN - 06/29/19 [...] health and she has been to the [place] [facility] and [facility] in the past. She has the following equipment at home: wheel chair, walker, cane and shower chair. Her discharge plan is to go to rehab prior to returning home. PCP: Flavia MARQUEZ [address] [phone] Committee Member: Dr. Shemar Barger [address] [facility] [address] [facility] [address] [address] Clemente Del Rio MD - Rheumatology - [address] [place], [place] [id number] Preferences: Home Health: [facility]: no preferences DME: [facility] - [address] [facility] [address], [place] [id number] Alf: [place] [facility] facility: no preferences Will continue to monitor patient for anticipated discharge needs YOANNA ARAUJO RN - 06/29/19 08:30:20 Yoanna Araujo 06/29/2019 0830 received fax from [facility] with approval for extended ltac coverage with next clinical review due on 07/12/2019. Auth#[id number]. Will continue to follow for anticipated discharge needs. YOANNA ARAUJO RN - 06/28/19 08:35:06 Yoanna Araujo 06/28/2019 0830 Faxed clinical review to [facility] at to request approval for extended Ltac services. Auth#[id number]. Pending Approval. Documentation Status Complete : Yes СВЕТЛАНА WANG - 07/17/2019 10:31 EDT documented in this encounter Plan of Treatment Not on file documented as of this encounter Visit Diagnoses Not on filedocumented in this encounter
--- OUTSIDE RECORDS SUMMARY | 2024-08-09 13:22 | XMS_ITS | Encounter Summary ---
Author Organization [employer] Address [address] [place] [address] Care Team Providers Care Asbestos Abatement Technician Name Role Phone Unavailable Primary Care Provider Unavailabl e Encounter Details Date Type Department Care Team (Late st Contact Info) Description 08/22/2020 Transcribed Document [facility] [place] [facility] [place] [address] ProviderMariela MD [address] [place] [address] Social History Tobacco Use Types Packs/Day [...] Note - Historical ProviderMD - 08/22/2020 10:00 AM CDT Pain Assessment Entered On: 08/22/2020 9:50 EDT Performed On: 08/22/2020 9:52 EDT by Adrianna Quintana RN Intervention Information: traMADol Performed by Adrianna Quintana RN on 08/22/2020 08:52:00 EDT traMADol,50mg Oral Pain Assessment Pain Assessment : Follow-up assessment Pain Scale Goal : 3 Pain Scale Used : 0-10 Scale Location : Knee, right Onset : Abrupt Quality : Aching Pain Worsened by : Movement Pain Improved by : Medication Pain Intervention, Drug : Medicated Pain Improved by Intervention : No Adrianna Quintana RN - 08/22/2020 9:47 EDT Pain Scale Intensity : 8 Adrianna Quintana RN - 08/22/2020 9:47 EDT Image 4 - Images currently included in the form version of this document have not been included in the text rendition version of the form. documented in this encounter Plan of Treatment Not on file documented as of this encounter Visit Diagnoses Not on filedocumented in this encounter
--- OUTSIDE RECORDS SUMMARY | 2024-08-09 13:22 | XMS_ITS | Encounter Summary ---
Author Organization [employer] Address [address] [place] [address] Care Team Providers Care Community Relations Liaison Name Role Phone Unavailable Primary Care Provider Unavailabl e Encounter Details Date Type Department Care Team (Late st Contact Info) Description 06/22/[address] [facility] [place] Family Medicine [address] [place] [address] ProviderMariela MD [facility] [place] [address] Social History Tobacco Use Types [...] Conversion Note - Historical ProviderMD - 06/22/2019 12:30 PM CDT Attempt to Treat, OT Entered On: 06/22/2019 14:08 EDT Performed On: 06/22/2019 12:30 EDT by FELTON RUSH OTR/Bartolo Attempt to Treat Unable to Treat Due To : Acuity of Illness, Patient on hold Inability to Treat Comment : order states bedrest only until pt is fitted with brace from outside bracing company; pt still has not been fitted with such brace. Eval held as a result. Will attempt again at later date after brace is received if pt able, willing. FELTON RUSH OTR/Bartolo - 06/22/2019 14:05 EDT documented in this encounter Plan of Treatment Not on file documented as of this encounter Visit Diagnoses Not on filedocumented in this encounter
--- OUTSIDE RECORDS SUMMARY | 2024-08-09 13:22 | XMS_ITS | Encounter Summary ---
Author Organization [employer] Address [address] [place] [address] Care Team Providers Care Grit Blaster Name Role Phone Unavailable Primary Care Provider Unavailabl e Encounter Details Date Type Department Care Team (Late st Contact Info) Description 08/27/2018 Transcribed Document [facility] [place] [address] ProviderMariela [place] [address] Social History Tobacco Use Types [...] Note - Historical ProviderMD - 08/27/2018 9:00 PM CDT Pain Assessment Entered On: 08/28/2018 4:51 EDT Performed On: 08/27/2018 22:43 EDT by Pina Reina RN Intervention Information: acetaminophen Performed by Pina Reina RN on 08/27/2018 21:43:00 EDT acetaminophen,1000mg Oral Pain Assessment Pain Assessment : Follow-up assessment Pain Scale Goal : 3 Pain Scale Used : 0-10 Scale Location : Knee, right Onset : Gradual Quality : Aching Pain Radiation : No Pain Improved by : Medication Pain Worsened by : None Pain Intervention, Drug : Medicated Pain Improved by Intervention : Yes Pina Reina RN - 08/28/2018 4:50 EDT Pain Scale Intensity : 2 Pina Reina RN - 08/28/2018 4:50 EDT Image 4 - Images currently included in the form version of this document have not been included in the text rendition version of the form. documented in this encounter Plan of Treatment Not on file documented as of this encounter Visit Diagnoses Not on filedocumented in this encounter
--- OUTSIDE RECORDS SUMMARY | 2024-08-09 13:22 | XMS_ITS | Encounter Summary ---
Author Organization [employer] Address [address] [place] [address] Care Team Providers Care Home Demonstration Agent Name Role Phone Unavailable Primary Care Provider Unavailabl e Encounter Details Date Type Department Care Team (Late st Contact Info) Description 07/18/[address] [facility] [place] [address] [place] [address] ProviderMariela MD [address] [place] [address] Social History Tobacco Use Types [...] Conversion Note - Historical ProviderMD - 07/18/2019 9:00 PM CDT Pain Assessment Entered On: 07/19/2019 2:01 EDT Performed On: 07/18/2019 21:45 EDT by Kena Ling RN Intervention Information: indomethacin Performed by Kena Ling RN on 07/18/2019 20:45:00 EDT indomethacin,25mg Oral Pain Assessment Pain Assessment : Follow-up assessment Pain Scale Goal : 3 Kena Ling RN - 07/19/2019 2:01 EDT Electronically signed by Maureen Cornejo Conversion Professional Security Officer Cerner at 06/16/2022 8:12 PM CDT documented in this encounter Plan of Treatment Not on file documented as of this encounter Visit Diagnoses Not on filedocumented in this encounter
--- OUTSIDE RECORDS SUMMARY | 2024-08-09 13:22 | XMS_ITS | Encounter Summary ---
Author Organization [employer] Address [address] [place] [address] Care Team Providers Care Security And Compliance Project Manager Name Role Phone Unavailable Primary Care Provider Unavailabl e Encounter Details Date Type Department Care Team (Late st Contact Info) Description 08/22/[address] [facility] [place] [facility] [place] [address] ProviderMariela MD [address] [place] [address] Social History Tobacco Use Types Packs/Day [...] Conversion Note - Historical ProviderMD - 08/22/2020 5:00 AM CDT Pain Assessment Entered On: 08/22/2020 6:41 EDT Performed On: 08/22/2020 6:58 EDT by Caitlyn Fallon Rn Intervention Information: acetaminophen Performed by Caitlyn Fallon Rn on 08/22/2020 05:58:00 EDT acetaminophen,1000mg Oral Pain Assessment Pain Assessment : Follow-up assessment Pain Scale Goal : 3 Pain Scale Used : 0-10 Scale Caitlyn Fallon Rn - 08/22/2020 6:41 EDT Pain Scale Intensity : 0 Caitlyn Fallon Rn - 08/22/2020 6:41 EDT Image 4 - Images currently included in the form version of this document have not been included in the text rendition version of the form. documented in this encounter Plan of Treatment Not on file documented as of this encounter Visit Diagnoses Not on filedocumented in this encounter
--- OUTSIDE RECORDS SUMMARY | 2024-08-09 13:22 | XMS_ITS | Encounter Summary ---
Author Organization [employer] Address [address] [place] [address] Care Team Providers Care Corporate Travel Expert Name Role Phone Unavailable Primary Care Provider Unavailabl e Encounter Details Date Type Department Care Team (Late st Contact Info) Description 07/10/2019 Transcribed Document [facility] Family Medicine [facility] [place] [address] ProviderMariela MD [facility] [place] [address] Social History Tobacco Use Types [...] Conversion Note - Historical ProviderMD - 07/10/2019 10:09 AM CDT Patient: SOFIA GILL Age: 79 years Sex: Female : 1940 Associated Diagnoses: None Author: CHRISSY HENDERSON, PharmD, BCPS HPI: 06/15 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 [...] 24 hrs) Last Charted Minimum Maximum Temp 98.7 (JULY 09 07:38) 98.7 (JULY 09 07:38) 99.6 (JULY 08 19:00) Mon HR 87 (JULY 09 07:38) 87 (JULY 09 07:38) 100 (JULY 08 19:00) Resp Rate 18 (JULY 09 07:38) 16 (JULY 08 16:00) 18 (JULY 08:00) SBP 103 (JULY 09 07:38) 103 (JULY 09 07:38) 134 (JULY 08 16:00) DBP L 40 (JULY 09 07:38) L 40 (JULY 09 07:38) 60 (JULY 08 16:00) MAP 54 (JULY 09 07:38) 54 (JULY 09 07:38) 54 (JULY 09 07:38) SpO2 95 (JULY 09 07:38) 95 (JULY 09 07:38) 99 (JULY 08 16:00) Labs (Last four charted values) WBC 7.2 (JULY 09) 6.3 (JULY 06) 6.5 (JULY 05) 7.9 (JULY 03) HB L 8.0 (JULY 09) L 7.9 (JULY 06) L 8.2 (JULY 05) L 8.8 (JULY 03) HCT L 25.3 (JULY 09) L 25.1 (JULY 06) L 25.6 (JULY 05) L 27.9 (JULY 03) Plt H 398 (JULY 09) H 430 (JULY 06) H 475 (JULY 05) H 535 (JULY 03) Na L 133 (JULY 09) 136 (JULY 06) 136 (JULY 05) 136 (JULY 03) K 4.4 (JULY 09) 4.0 (JULY 06) 4.0 (JULY 05) 4.5 (JULY 03) Cl L 101 (JULY 09) L 99 (JUNE 08) L 99 (JULY 05) L 101 (JULY 03) CO2 27 (JULY 09) 32 (JULY 06) H 33 (JULY 05) 30 (JULY 03) BUN H 30 (JULY 09) H 29 (JULY 06) H 26 (JULY 05) 18 (JULY 03) Cr 0.70 (JULY 09) 0.70 (JULY 06) 0.80 (JULY 05) 0.70 (JULY 03) Glu R H 116 (JULY 09) H 115 (JULY 06) H 113 (JULY 05) H 120 (JULY 03) Ca 8.4 (JULY 09) 8.6 (JULY 06) 8.4 (JULY 05) L 8.1 (JULY 03) PT 11.7 (JULY 09) 11.8 (JULY 06) 11.4 (JULY 03) 11.4 (JULY 01) INR 1.1 (JULY 09) 1.1 (JULY 06) 1.1 (JULY 03) 1.1 (JULY 01) AST 15 (JULY 09) 12 (JULY 06) 11 (JULY 05) 14 (JULY 03) ALT 14 (JULY 09) 13 (JULY 06) L 12 (JULY 05) L 11 (JULY 03) ALK P 49 (JULY 09) 45 (JULY 06) 45 (JULY 05) 57 (JULY 03) T Bili 0.3 (JULY 09) 0.3 (JULY 06) 0.8 (JULY 05) 0.2 (JULY 03) PTN 7.5 (JULY 09) 7.2 (JULY 06) 7.2 (JULY 05) 7.1 (JULY 03) ALB L 2.6 (JULY 09) L 3.1 (JULY 06) L 2.9 (JULY 05) L 1.9 (JULY 03) Creatinine Clearance (Current Encounter/Past 24 Hours) Creatinine Level 0.70 mg/dL 07/10/2019 05:57 Bun/Creatinine 42.9 HI 07/10/2019 05:57 Culture Results: 06/16 & 06/20 knee tissue strep agal Group B Date 06/27 06/28 06/29 07/01 07/03 07/06 INR 1.1 --- 1.1 1.1 1.1 1.1 Dose 4mg 2mg 2mg 2 2 2 Date 07/09 INR 1.1 Dose 2mg A/P: 1. Patient's orthopedic surgeon wants to use warfarin 2mg daily for DVT prophylaxis instead of lovenox. Continue Warfarin 2mg daily as INR is stable goal <2. 2. INR is not rising on warfarin 2mg (as is the goal per ortho group). Will adjust INR check to Q3days. Rx to follow, Chrissy Henderson, PharmD [phone] Electronically signed by Chantal, [facility] Conversion Drapery And Upholstery Estimator Cerner at 06/16/2022 8:18 PM CDT documented in this encounter Plan of Treatment Not on file documented as of this encounter Visit Diagnoses Not on filedocumented in this encounter
--- OUTSIDE RECORDS SUMMARY | 2024-08-09 13:22 | XMS_ITS | Encounter Summary ---
Author Organization [employer] Address [address] [place] [address] Care Team Providers Care Assistant Corporation Counsel Name Role Phone Unavailable Primary Care Provider Unavailabl e Encounter Details Date Type Department Care Team (Late st Contact Info) Description 07/17/2019 Transcribed Document [facility] Family Medicine [facility] [place] [address] ProviderMariela MD [facility] [place] [id number] Social History Tobacco Use Types Packs/Day Years [...] Conversion Note - Historical ProviderMD - 07/17/2019 1:39 PM CDT Care Management Assessment/Plan Entered On: 07/17/2019 13:41 EDT Performed On: 07/17/2019 13:39 EDT by СВЕТЛАНА WANG Care Management Note Care Management Note : 07/17/2019 Call received from Tati Erickson [facility], with approval for LTAC services. Last covered date 07/18/2019 with anticipated DC on 07/19/2019. Please fax DC summary on date of discharge. Auth#[id number]. Care Management Note Report : СВЕТЛАНА WANG - 07/17/19 11:32:16 07/17/[address] Snyder (ID), he is in agreement to discharge to SNF on Wednesday, he would like for her to follow-up with the consulting ID (Dr. Stock) in 1 week upon discharge. TELEHEALTH appointment scheduled with Dr. Stock for 07/25/2019 @ 1600. [facility] will call [place] to facilitate this visit. СВЕТЛАНА WANG - 07/17/19 10:32:31 07/17/2019 faxed clinical review the [facility] at [phone] to request approval for extended ltac services. Auth#[id number], awaiting approval. CM/Discharge plan attached to review. СВЕТЛАНА WANG - 07/17/19 09:06:05 07/17/[address] Jaffe's progress note, yahaira may be removed if okay with Dr. Saenz's office. Per our WOCN, Dr. Saenz's office said they need to see her before they make that decision. Appt scheduled for tomorrow, 07/18/2019 @ 1415; [facility] round-trip transport scheduled for 1315 pick-up ([id number]). Spoke with Lexy Valdez, they have not yet began the patient's insurance preauth, they will today, and be ready to admit on Wednesday. Dr. Jaffe notified and in agreement. [facility] rescheduled for discharge 07/19/2019 @ 1400 ([id number]). YOANNA ARAUJO RN - 07/14/19 15:41:31 Yoanna Araujo 07/13/2019 1500 - patient has accepted bed offer at [facility], she will be transported on WednesdayJuly 16 at 2pm by [facility] Confirmation # [id number]. She declined the bed offer at [facility]. Jaffe notified of discharge plan. YOANNA ARAUJO RN - 07/13/19 14:37:44 Yoanna Araujo 07/13/2019 1400 received call from Ratna with [facility] offering patient a bed, Received call from Isabelle with [facility] she is looking at patient and needed a current height and weight. Still waiting to see if any other bed offers come through. I also sent referral to [facility]. YOANNA ARAUJO, EDDIE - 07/13/19 11:04:03 Yoanna Araujo 07/13/2019 1100 faxed out referral for placement for patient to [facility] nursing and rehab, [facility] facilities and [facility] facilities. Awaiting call backs. СВЕТЛАНА WANG - 07/12/19 12:19:17 07/12/2019 Fax received from [facility] with approval for LTAC services with a request for updated discharge plans and clinical info to support needs if not discharged. Auth#[id number]. Clinical review or discharge summary to be faxed by 07/17/2019. YOANNA ARAUJO RN - 07/12/19 08:39:48 Yoanna Araujo 07/12/2019 0830 - faxed clinical review the [facility] at [phone] to request approval for extended ltac services. Auth#[id number], awaiting approval. YOANNA ARAUJO RN - 06/29/19 [...] health and she has been to the [facility] and [facility] in the past. She has the following equipment at home: wheel chair, walker, cane and shower chair. Her discharge plan is to go to rehab prior to returning home. PCP: Flavia MARQUEZ [address] [place] [address] Balancing Machine Set Up Worker: Dr. Shemar Barger [id number] Clemente Del Rio MD - Rheumatology - [address] [id number] Preferences: Home Health: [facility] Company: no preferences DME: [facility] - [address] [place] [address] Fci: [facility] facility: no preferences Will continue to monitor patient for anticipated discharge needs YOANNA ARAUJO RN - 06/29/19 08:30:20 Yoanna Araujo 06/29/2019 0830 received fax from [facility] with approval for extended ltac coverage with next clinical review due on 07/12/2019. Auth#[id number]. Will continue to follow for anticipated discharge needs. YOANNA ARAUJO RN - 06/28/19 08:35:06 Yoanna Araujo 06/28/2019 0830 Faxed clinical review to [facility] at to request approval for extended Ltac services. Auth#[id number]. Pending Approval. Documentation Status Complete : Yes СВЕТЛАНА WANG - 07/17/2019 13:39 EDT Electronically signed by Maureen Cornejo Conversion Airplane Gastank Liner Assembler Cerner at 06/16/2022 8:27 PM CDT documented in this encounter Plan of Treatment Not on file documented as of this encounter Visit Diagnoses Not on filedocumented in this encounter
--- OUTSIDE RECORDS SUMMARY | 2024-08-09 13:22 | XMS_ITS | Encounter Summary ---
Author Organization [employer] Address [address] [place] [address] Care Team Providers Care Awning Maker And Installer Name Role Phone Unavailable Primary Care Provider Unavailabl e Encounter Details Date Type Department Care Team (Late st Contact Info) Description 06/26/2019 Transcribed Document [facility] Family Medicine [address] [place] [address] ProviderMariela MD [address] [place] [address] Social History Tobacco Use Types Packs/Day Years [...] Historical ProviderMD - 06/26/2019 8:17 PM CDT Education-(VTE) / (DVT) Entered On: 06/27/2019 3:56 EDT Performed On: 06/26/2019 20:17 EDT by Bibi Gallagher RN Teaching/Learning Assessment Barriers To Learning : None evident Individuals Taught : Patient Readiness to Learn : Cooperative Baseline Knowledge of Topic : Good Readiness to Learn : Explanation Learning Style Preferences Patient : Demonstration, Verbal explanation Bibi Gallagher RN - 06/27/2019 3:56 EDT documented in this encounter Plan of Treatment Not on file documented as of this encounter Visit Diagnoses Not on filedocumented in this encounter
--- OUTSIDE RECORDS SUMMARY | 2024-08-09 13:22 | XMS_ITS | Encounter Summary ---
Author Organization [employer] Address [address] [place] [address] Care Team Providers Care Salt Lifter Name Role Phone Unavailable Primary Care Provider Unavailabl e Encounter Details Date Type Department Care Team (Late st Contact Info) Description 07/07/2019 Transcribed Document [facility] Family Medicine [address] [place] [address] ProviderMariela MD [address] [place] [address] Social History Tobacco Use Types Packs/Day Years [...] Conversion Note - Historical ProviderMD - 07/07/2019 2:00 AM CDT National Business Director Details Entered On: 07/07/2019 0:12 EDT Performed On: 07/07/2019 2:00 EDT by Georgina Olivo RN Order Details Transport Mode Order Detail : Stretcher/Gurney Isolation Precautions Order Detail : Standard Precautions Order Detail : N/A IV Order Detail : 0 Oxygen Order Detail : 1 Nurse Collect Order Detail : 1 Lift/Transfer : Moderate assist Central Line Order Detail : Yes Room Service : Appropriate Arterial Line : No Georgnia Olivo RN - 07/07/2019 0:12 EDT documented in this encounter Plan of Treatment Not on file documented as of this encounter Visit Diagnoses Not on filedocumented in this encounter
--- OUTSIDE RECORDS SUMMARY | 2024-08-09 13:22 | XMS_ITS | Encounter Summary ---
Author Organization [employer] Address [address] [place] [address] Care Team Providers Care High School Academic Coach Name Role Phone Unavailable Primary Care Provider Unavailabl e Encounter Details Date Type Department Care Team (Late st Contact Info) Description 08/24/2020 Transcribed Document [facility] Family Medicine [facility] [place] [address] ProviderMariela MD [facility] [place] [address] Social History Tobacco Use Types [...] Historical ProviderMD - 08/24/2020 5:00 AM CDT Pain Assessment Entered On: 08/24/2020 10:17 EDT Performed On: 08/24/2020 7:37 EDT by Didi Villegas RN Intervention Information: acetaminophen Performed by Rayna Carrizales Rn on 08/24/2020 06:37:00 EDT acetaminophen,1000mg Oral Pain Assessment Pain Assessment : Follow-up assessment Pain Scale Goal : 3 Pain Scale Used : 0-10 Scale Didi Villegas RN - 08/24/2020 10:17 EDT Pain Scale Intensity : 2 Didi Villegas RN - 08/24/2020 10:17 EDT Image 4 - Images currently included in the form version of this document have not been included in the text rendition version of the form. documented in this encounter Plan of Treatment Not on file documented as of this encounter Visit Diagnoses Not on filedocumented in this encounter
--- OUTSIDE RECORDS SUMMARY | 2024-08-09 13:22 | XMS_ITS | Encounter Summary ---
Author Organization [employer] Address [address] [place] [address] Care Team Providers Care Logistics Analytics Manager Name Role Phone Unavailable Primary Care Provider Unavailabl e Encounter Details Date Type Department Care Team (Late st Contact Info) Description 06/23/2019 Transcribed Document [facility] Family Medicine [facility] [place] [address] ProviderMariela MD [address] [place] [address] Social History Tobacco Use Types Packs/Day [...] Conversion Note - Historical ProviderMD - 06/23/2019 8:25 AM CDT Pain Assessment Entered On: 06/24/2019 3:32 EDT Performed On: 06/24/2019 1:26 EDT by Chiki Morris RN Intervention Information: acetaminophen-oxyCODONE Performed by Chiki Morris RN on 06/24/2019 00:26:00 EDT acetaminophen-oxyCODONE,1.5Tab Oral,Pain (Moderate 4-6) Pain Assessment Pain Assessment : Follow-up assessment Pain Scale Goal : 3 Pain Scale Used : 0-10 Scale Onset : Gradual Quality : Aching Pain Radiation : No Pain Worsened by : Movement Pain Intervention, Drug : Medicated Pain Improved by Intervention : Yes Chiki Morris RN - 06/24/2019 3:31 EDT Pain Scale Intensity : 4 Chiki Morris RN - 06/24/2019 3:31 EDT Image 4 - Images currently included in the form version of this document have not been included in the text rendition version of the form. documented in this encounter Plan of Treatment Not on file documented as of this encounter Visit Diagnoses Not on filedocumented in this encounter
--- OUTSIDE RECORDS SUMMARY | 2024-08-09 13:22 | XMS_ITS | Encounter Summary ---
Author Organization [employer] Address [address] [place] [address] Care Team Providers Care Survey Research Manager Name Role Phone Unavailable Primary Care Provider Unavailabl e Encounter Details Date Type Department Care Team (Late st Contact Info) Description 07/10/2019 Transcribed Document [facility] Family Medicine [address] [place] [address] ProviderMariela MD [address] [place] [id number] Social History Tobacco Use Types Packs/Day Years [...] Conversion Note - Historical ProviderMD - 07/10/2019 5:00 AM CDT Chart Check - Review Order Profile Entered On: 07/10/2019 3:22 EDT Performed On: 07/10/2019 5:00 EDT by Bibi Gallagher RN Chart Check Powerplans Initiated/Discontinued as Appropriate : Yes All Active Orders Reviewed : Yes Bibi Gallagher RN - 07/10/2019 3:21 EDT documented in this encounter Plan of Treatment Not on file documented as of this encounter Visit Diagnoses Not on filedocumented in this encounter
--- OUTSIDE RECORDS SUMMARY | 2024-08-09 13:22 | XMS_ITS | Encounter Summary ---
Author Organization [employer] Address [address] [place] [address] Care Team Providers Care Manager Of Radiology Name Role Phone Unavailable Primary Care Provider Unavailabl e Encounter Details Date Type Department Care Team (Late st Contact Info) Description 07/06/2019 Transcribed Document [facility] Family Medicine [address] [place] [address] ProviderMariela MD [address] [place] [address] Social History Tobacco Use Types Packs/Day Years [...] Conversion Note - Historical ProviderMD - 07/06/2019 2:00 AM CDT Boring Machine Operator Helper Details Entered On: 07/06/2019 3:12 EDT Performed On: 07/06/2019 2:00 EDT by Bibi Gallagher, EDDIE Order Details Transport Mode Order Detail : Stretcher/Gurney Isolation Precautions Order Detail : Standard Precautions Order Detail : N/A IV Order Detail : 0 Oxygen Order Detail : 0 Nurse Collect Order Detail : 1 Lift/Transfer : Moderate assist Central Line Order Detail : Yes Room Service : Appropriate Arterial Line : No Bibi Gallagher RN - 07/06/2019 3:09 EDT Electronically signed by Maureen Cornejo Conversion Global Marketing Coordinator Cerner at 06/16/2022 8:29 PM CDT documented in this encounter Plan of Treatment Not on file documented as of this encounter Visit Diagnoses Not on filedocumented in this encounter
--- OUTSIDE RECORDS SUMMARY | 2024-08-09 13:22 | XMS_ITS | Encounter Summary ---
Author Organization [employer] Address [address] [place] [address] Care Team Providers Care Client Account Assistant Name Role Phone Unavailable Primary Care Provider Unavailabl e Encounter Details Date Type Department Care Team (Late st Contact Info) Description 08/27/2018 Transcribed Document [facility] Family Medicine [facility] [place] [address] ProviderMariela MD [address] [place] [address] Social History Tobacco Use Types [...] Conversion Note - Historical ProviderMD - 08/27/2018 11:53 PM CDT Patient: SOFIA GILL Age: 78 Years Sex: Female : 1940 Subjective Patient is a 78 yo female who had presented for an elective knee replacement. I don't believe it was a fall because I can't find a record of one. More than likely it appears she hyperextended her right knee. Her surgery had originally been 2 days prior. Most of the pain was located on the posterior knee/thigh. There had been no history of the injury.She is having constipation. Concerned about being able to go to rehab afterdischarge. Overall though she is doing well. Tells me she is having pain in her legs. Progress note reviewed. Although earlier she was having severe, intermittent pain with any kind of movement. She is also having issues w/ constipation, and we talked a fair amount of time about the pain medications she was on that were less likely to cause constipation. Requesting Miralax. Vital Signs T: 37 ??C TMIN: 36.5 ??C TMAX: 37.3 ??C HR: 86(Monitored) RR: 16 BP: 104/42 SpO2: 97% Oxygen Settings (Last) Oxygen Therapy Mode: CPAP (08/27/18 23:00:00 EDT) Oxygen Flow Rate: 2 Liter/Min (08/22/18 12:40:00 EDT) Intake & Output Totals Last 24 Hours (7a-7a) Input Total: 0 mL Output Total: 0 mL Balance: 0 mL Physical Exam General: Alert and oriented, [...] yahaira intact. Has some mild blood tinge drainage, Mild generalized edema. Skin: Skin is warm, dry and pink. no actively bleeding; scattered ecchymotic areas; the LLE frontal midline incision appears to be intact w/o active bleeding. Psychiatric: Cooperative, appropriate mood and affect Neurologic: Awake, alert, and oriented Assessment/Plan Acute kidney injury, resolved 08/25/2018 -Cr normal today Had likely pre renal component Her Lisinoprilhas been resumed now and tolerating Hypertension On Lisinopril Her po lasix will be resumed and watch renal function S/p Right Total Knee Arthroplasty by Dr. Epps 08/22/2018 Patient did develop some swelling on right knee with ecchymosis US without DVT noted Currently active flexion on hold and patient has knee on foam elevation per ortho direction Further per ortho direction and she is doing bedside exercise now. I helped her roll a bath toll and place under her elevated RLE and states she's comfortable now. Morbid obesity will benefit from eventual [...] for 45 days Disposition:Plan for transition to [facility] when ok with ortho Discussed with patient and time spent with above 25 minutes. VTE Prophylaxis - Medical Sequential Compression Device Start: 08/22/18 12:12:00 EDT, Bilateral, Length: Knee High, Continuous Order (NIMO EPPS) Ortho asked to keep her today with leg not wrapped and plan to be discharged to the [facility] tomorrow. Medications Benadryl, 25 mg= 1 Tab, Oral, [...] mL, IV Push, Q8H, PRN Diagnostic Results N/A Lab Results Test Name Test Result Date/Time Sodium Level 139 mmol/L 08/27/2018 04:03 EDT Potassium Level 4.0 mmol/L 08/27/2018 04:03 EDT Chloride Level 102 mmol/L 08/27/2018 04:03 EDT Carbon Dioxide Level 33 mmol/L (High) 08/27/2018 04:03 EDT Anion Gap 8 (Low) 08/27/2018 04:03 EDT Glucose Level 106 mg/dL 08/27/2018 04:03 EDT Blood Urea Nitrogen 20 mg/dL 08/27/2018 04:03 EDT Creatinine Level 0.74 mg/dL 08/27/2018 04:03 EDT eGFR >60 mL/min/1.73m2 08/27/2018 04:03 EDT eGFR NonAfrican >60 mL/min/1.73m2 08/27/2018 04:03 EDT Bun/Creatinine 27.0 (High) 08/27/2018 04:03 EDT Calcium Level 8.4 mg/dL (Low) 08/27/2018 04:03 EDT Electronically signed by Maureen Cornejo Conversion Commercial Litigation Attorney Min at 06/16/2022 8:16 PM CDT documented in this encounter Plan of Treatment Not on file documented as of this encounter Visit Diagnoses Not on filedocumented in this encounter
--- OUTSIDE RECORDS SUMMARY | 2024-08-09 13:22 | XMS_ITS | Encounter Summary ---
Author Organization [employer] Address [address] [place] [address] Care Team Providers Care Match Maker Name Role Phone Unavailable Primary Care Provider Unavailabl e Encounter Details Date Type Department Care Team (Late st Contact Info) Description 07/06/2019 Transcribed Document [facility] Family Medicine [address] [place] [address] ProviderMariela MD [address] [place], [place] [id number] Social History Tobacco Use Types Packs/Day Years [...] Note - Historical ProviderMD - 07/06/2019 5:00 AM CDT Chart Check - Review Order Profile Entered On: 07/06/2019 3:14 EDT Performed On: 07/06/2019 5:00 EDT by Bibi Gallagher RN Chart Check Powerplans Initiated/Discontinued as Appropriate : Yes All Active Orders Reviewed : Yes Bibi Gallagher RN - 07/06/2019 3:14 EDT documented in this encounter Plan of Treatment Not on file documented as of this encounter Visit Diagnoses Not on filedocumented in this encounter
--- OUTSIDE RECORDS SUMMARY | 2024-08-09 13:22 | XMS_ITS | Encounter Summary ---
Author Organization [employer] Address [address] [place] [address] Care Team Providers Care Stars Coordinator Name Role Phone Unavailable Primary Care Provider Unavailabl e Encounter Details Date Type Department Care Team (Late st Contact Info) Description 07/06/2019 Transcribed Document [facility] [place] [address] ProviderMariela MD [place] [address] Social History Tobacco Use Types [...] Cerner Conversion Note - Mariela ProviderMD - 07/06/2019 7:51 PM CDT Patient: SOFIA BARLOW Age: 79 [...] pain under control, no trouble w. urination. ???The brace adjusted ???Decrease lower extremity edema ???Improving albumin level ???Lower extremity dermatosis improving Review of Systems Constitutional: No fever, No [...] reaction sulfa drugs Itching Current medications: Medications (46) Active Scheduled: (21) albumin human 25% 25 g/100 mL inj 25 Gram 100 mL, IV Piggyback, Q12H aspirin 81 mg chew tab 81 mg 1 Tab, Oral, Daily calcium 500 mg/vit D 200 int unit tab 1 Tab, Oral, BID cefTRIAXone + NaCl 0.9% 50 mL 2 Gram, IV Piggyback, [id number] cyanocobalamin 1,000 mcg tab 5,000 mcg 5 Tab, Oral, Daily docusate sodium 100 mg cap 100 mg 1 Cap, Oral, Daily DULoxetine DR 30 mg cap 60 mg 2 Cap, Oral, Daily furosemide 20 mg/2 mL inj 20 mg 2 mL, IV Push, Q12H gabapentin 300 mg cap 300 mg 1 [...] Tab, Oral, Q4H fluticasone 0.05% nasal spray 100 mcg 2 Brandon, Nostrils Both, BID magnesium hydroxide 8% liq [...] Sleep apnea Physical Examination VS/Measurements Vital Measurements 07/06/2019 19:00 EDT Systolic Blood Pressure 129 mmHg Diastolic Blood Pressure 55 mmHg LOW Temperature Source Oral Temperature Mode Fahrenheit Temperature, Fahrenheit 99.6 Deg F Clinical Temperature, C 37.6 Deg C Heart Rate Monitored 93 bpm Respiratory Rate 14 Breaths/Min Oxygen Saturation 100 % General: Alert [...] Review / Management Results review: All Results 07/06/2019 5:07 EDT Sodium Level 136 mmol/L Potassium Level 4.0 mmol/L Chloride Level 99 mmol/L LOW Carbon Dioxide Level 33 mmol/L HI Anion Gap 8 LOW Glucose Level 113 mg/dL HI Blood Urea Nitrogen 26 mg/dL HI Creatinine Level 0.80 mg/dL eGFR >60 mL/min/1.73m2 eGFR NonAfrican >60 mL/min/1.73m2 Bun/Creatinine 32.5 HI Calcium Level 8.4 mg/dL Protein Total 7.2 Gram/dL Albumin Level 2.9 Gram/dL LOW Globulin 4.3 Gram/dL A/G Ratio 0.7 LOW Bilirubin Total 0.8 mg/dL Alk Phos 45 Units/Liter AST 11 Units/Liter ALT 12 Units/Liter LOW WBC 6.5 K/uL RBC 2.64 Million/uL LOW Hgb 8.2 g/dL LOW Hct 25.6 % LOW MCV 97.0 fL HI MCH 31.1 pg MCHC 32.0 Gram/dL LOW Platelet Count 475 K/uL HI MPV 8.6 fL LOW RDW 13.1 % Neut % 60.0 % Neut # 3.93 K/uL Lymph % 23.0 % Lymph # 1.50 x10(3)/uL [place] % 12.3 % HI [place] # 0.80 K/uL Eos % 3.7 % Eos # 0.24 x10(3)/uL Baso % 0.5 % Baso # 0.03 x10(3)/uL Slide Review No IG# 0.03 x10(3)/uL IG% 0.50 % . Condition: Stable. Impression and Plan [...] blood glucose, and urine output. continue on IV antibiotics as recommended by infectious disease. Pain control. DVT prophylaxis. Close monitoring fluid and electrolytes. Stress ulcer prophylaxis.. Orders Order Profile (Selected) Inpatient Orders Ordered (Scheduled) CBC w/ Auto Diff: Specimen Type: Blood, AM Draw collect, 07/07/19 4:00:00 EDT, 1-Time, Stop: 07/07/19 4:00:00 EDT, Nurse Collect CMP Comprehensive Metabolic Panel: Specimen Type: Blood, AM Draw collect, 07/07/19 4:00:00 EDT, 1-Time, Stop: 07/07/19 4:00:00 EDT, Nurse Collect. documented in this encounter Plan of Treatment Not on file documented as of this encounter Visit Diagnoses Not on filedocumented in this encounter
--- OUTSIDE RECORDS SUMMARY | 2024-08-09 13:22 | XMS_ITS | Encounter Summary ---
Author Organization [employer] Address [address] [place] [address] Care Team Providers Care Tomb Maker Helper Name Role Phone Unavailable Primary Care Provider Unavailabl e Encounter Details Date Type Department Care Team (Late st Contact Info) Description 06/22/2019 Transcribed Document [facility] [place] Medicine [facility] [place] [address] ProviderMariela MD [facility] [place] [address] Social History Tobacco Use Types [...] Conversion Note - Historical ProviderMD - 06/22/2019 5:36 PM CDT Patient: SOFIA GILL Age: 79 years Sex: Female : 1940 Associated Diagnoses: None Author: ARA JONES MD-INF ID Progress Note CC: Left knee pain Current antimicrobial therapy: Rocephin IV Subjective: Patient underwent aggressive irrigation debridement of left 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 for her for further decompensation due to immobility, fever curve improved since surgery Objective: Vitals Signs (last 24 hrs) Last Charted Minimum Maximum Temp 97.8 (JUN 21 14:50) 97.8 (JUN 21 14:50) 98.0 (JUN 21 12:30) Mon HR 82 (JUN 21 14:50) 62 (JUN 20 23:00) 96 (JUN 21 14:00) Resp Rate 16 (JUN 21 14:50) 16 (JUN 21 11:24) 20 (JUN 20 18:00) SBP 101 (JUN 21 14:50) 93 (JUN 21 05:58) 131 (JUN 20 21:02) DBP L 43 (JUN 21 14:50) L 40 (JUN 21 06:27) 70 (JUN 21 12:30) MAP 54 (JUN 21 14:50) 48 (JUN 21 05:58) 79 (JUN 21 12:48) SpO2 96 (JUN 21 14:50) L 92 (JUN 20 20:00) 100 (JUN 21 02:05) Physical Examination: Gen: Alert, nervous about surgery [...] Labs:Labs (Last four charted values) WBC H 24.5 (JUN 21) H 22.8 (JUN 19) H 24.7 (JUN 18) H 21.4 (JUN 17) HB L 7.5 (JUN 21) L 7.5 (JUN 21) L 8.4 (JUN 20) L 10.9 (JUN 19) HCT L 23.7 (JUN 21) L 23.7 (JUN 21) L 26.3 (JUN 20) L 33.6 (JUN 19) Plt H 416 (JUN 21) H 389 (JUN 19) 281 (JUN 18) 266 (JUN 17) Na 136 (JUN 21) L 133 (JUN 20) L 135 (JUN 19) 136 (JUN 18) K 4.5 (JUN 21) 4.4 (JUN 20) 4.8 (JUN 20) 4.6 (JUN 19) Cl 103 (JUN 21) L 101 (JUN 20) 102 (JUN 19) 103 (JUN 18) CO2 27 (JUN 21) 25 (JUN 20) 22 (JUN 19) 22 (JUN 18) BUN 21 (JUN 21) H 23 (JUN 20) H 26 (JUN 19) H 31 (JUN 18) Cr 0.63 (JUN 21) 0.66 (JUN 20) 0.75 (JUN 19) 0.93 (JUN 18) Glu R 101 (JUN 21) 93 (JUN 20) 102 (JUN 19) L 73 (JUN 18) Ca L 7.1 (JUN 21) L 7.9 (JUN 20) L 7.8 (JUN 19) L 7.9 (JUN 18) Lactic 1.1 (JUN 16) PT H 12.4 (JUN 20) INR H 1.2 (JUN 20) AST 25 (JUN 21) 27 (JUN 19) 26 (JUN 18) H 38 (JUN 16) ALT 16 (JUN 21) 21 (JUN 19) 21 (JUN 18) 29 (JUN 16) ALK P 103 (JUN 21) H 204 (JUN 19) H 188 (JUN 18) 133 (JUN 16) T Bili 0.2 (JUN 21) 0.3 (JUN 19) 0.3 (JUN 18) 0.5 (JUN 16) PTN L 4.4 (JUN 21) L 5.3 (JUN 19) L 4.4 (JUN 18) L 5.2 (JUN 16) ALB L 1.4 (JUN 21) L 1.7 (JUN 19) L 1.5 (JUN 18) L 2.0 (JUN 16) Micro: [facility]: 06/15 [facility] Blood cultures positive for group B strep and 2/2 bottles SJE: 06/16 fluid aspiration of left knee shows 118,150 white blood cells, GPC 06/16 repeat blood cultures with Group B Strep 06/16 MRSA surveillance culture and pro/pending 06/16 Urine culture in process/pending Rad: Radiology Results (Last 48 hours) [id number] -- 06/16/2019 21:08 CR Chest 1 Vw Portable (06/21/2019 04:36) Result: PORTABLE CHEST 06/21/2019 4:12 AM HISTORY: Shortness of breath.COMPARISON: None.FINDINGS: The heart is enlarged. Left-sided PICC line is in goodposition. There is bibasilar atelectasis or pneumonia. There is nopneumothorax . The osseous structures demonstrate postoperative changesof the left shoulder. IMPRESSION: Bibasilar atelectasis or pneumonia.Images reviewed, interpreted, and dictated by Dr. Jordan Richardson.Transcribed by Florentin Gomez PA-C.I have personally viewed, interpreted and dictated the [...] suppression - Drains in place will monitor documented in this encounter Plan of Treatment Not on file documented as of this encounter Visit Diagnoses Not on filedocumented in this encounter
--- OUTSIDE RECORDS SUMMARY | 2024-08-09 13:22 | XMS_ITS | Encounter Summary ---
Author Organization [employer] Address [address] [place] [address] Care Team Providers Care Chemical Dependency Counselor Name Role Phone Unavailable Primary Care Provider Unavailabl e Encounter Details Date Type Department Care Team (Late st Contact Info) Description 07/10/2019 Transcribed Document [facility] [place] Family Medicine [address] [place] [address] ProviderMariela MD [address] [place] [address] Social History Tobacco Use Types [...] Conversion Note - Historical ProviderMD - 07/10/2019 3:00 AM CDT Nutrition Assessment Entered On: 07/10/2019 10:45 EDT Performed On: 07/10/2019 10:45 EDT by Daniella Hunt Dietitian Nutrition Assessment Nutrition Assessment Reason : Follow Up Daniella Hunt Dietitian - 07/10/2019 10:45 EDT Current Nutrition Regimen Comment : 07/09: Moderate f/up. Edema resolving per MD [...] wanting ONS TID). Will continue to monitor. 07/02: Moderate f/up. Pt reports decreased appetite d/t brace pt is currently in - pushes on her stomach. RD encouraged pt to eat smaller meals and snack in between. Pt reports she is drinking the ensure BID. RD took pt lunch order. Will continue to monitor. Dx: periprosthetic L [...] statin, florastor, coQ10, warfarin, pain prn, senna prn Labs: Na 133, Cl 101, Glu 116, BUN 30, Alb 2.6, PLT 398, PAB 12.6 Skin: slight LE edema; L knee incision (closed) (immobilizer present), MASD gluteal cleft GI: LBM 07/08, +BS Diet: regular + ensure BID Intakes: 75-100% all meals Ht: 59 Wt: 216# (06/25) Current wt: no new wt (07/02, 07/09) SJE Wt hx: 91.8kg/202# (06/18) UBW: 200# per pt BMI: 43.7 IBW/%IBW: 97.5#/207% Daniella Hunt Dietitian - 07/10/2019 12:45 EDT Nutrition Diagnoses Nutrient Intake : Increased nutrient needs Nutrient Intake Related to : skin integrity Nutrient Intake As Evidenced by : documented stg 2 PU coccyx @ SJE not noted by [facility] Nutrient Intake Status : Resolved Increased Nutrient Needs Comment : protein Weight : Obese, Class III Weight Related to : lifestyle Weight As Evidenced by : BMI=43.7 Weight Status : Active Daniella Hunt Dietitian - 07/10/2019 12:45 EDT Nutrition Interventions Meals and Snacks : General/Healthful diet Nutrition Supplement Therapy : Commercial beverage, Commercial food Daniella Hunt Dietitian - 07/10/2019 12:45 EDT Monitoring/Evaluation Energy Intake : Total energy intake Food Intake : Amount of food Protein Intake : Total protein Weight Status : Weight Maintanence Gastrointestinal Function : Bowel Function Daniella Hunt Dietitian - 07/10/2019 12:45 EDT Nutrition Recommendations Dietitian Recommendations : 1. Continue current diet regimen. RD to provide Ensure at breakfast and magic cup at lunch and dinner. Goal: >50% po intake 2. Obtain wt 2x/wk. Goal: no unintended wt changes moderate risk Nutrition Care Level : Moderate Daniella Hunt Dietitian - 07/10/2019 12:45 EDT documented in this encounter Plan of Treatment Not on file documented as of this encounter Visit Diagnoses Not on filedocumented in this encounter
--- OUTSIDE RECORDS SUMMARY | 2024-08-09 13:22 | XMS_ITS | Encounter Summary ---
Author Organization [employer] Address [address] [place] [address] Care Team Providers Care Congressional Aide Name Role Phone Unavailable Primary Care Provider Unavailabl e Encounter Details Date Type Department Care Team (Late st Contact Info) Description 06/23/2019 Transcribed Document [facility] [place] [facility] [place] [address] ProviderMariela MD [facility] [place] [address] Social History Tobacco Use Types [...] Conversion Note - Historical ProviderMD - 06/23/2019 9:00 AM CDT Pain Assessment Entered On: 06/23/2019 12:10 EDT Performed On: 06/23/2019 9:18 EDT by Vidhi Bailey RN Intervention Information: acetaminophen Performed by Vidhi Bailey RN on 06/23/2019 08:18:00 EDT acetaminophen,1000mg Oral Pain Assessment Pain Assessment : Follow-up assessment Pain Scale Goal : 3 Pain Scale Used : 0-10 Scale Vidhi Bailey RN - 06/23/2019 12:10 EDT Pain Scale Intensity : Alternate pain scale used Vidhi Bailey RN - 06/23/2019 12:10 EDT Image 4 - Images currently included in the form version of this document have not been included in the text rendition version of the form. documented in this encounter Plan of Treatment Not on file documented as of this encounter Visit Diagnoses Not on filedocumented in this encounter
--- OUTSIDE RECORDS SUMMARY | 2024-08-09 13:22 | XMS_ITS | Encounter Summary ---
Author Organization [employer] Address [address] [place] [address] Care Team Providers Care Electrician Marine Name Role Phone Unavailable Primary Care Provider Unavailabl e Encounter Details Date Type Department Care Team (Late st Contact Info) Description 08/28/2018 Transcribed Document [facility] [place] Family Medicine [address] [place] [address] ProviderMariela MD [address] [place] [address] Social History Tobacco Use Types Packs/Day Years [...] Note - Historical ProviderMD - 08/28/2018 9:00 AM CDT Pain Assessment Entered On: 08/28/2018 10:46 EDT Performed On: 08/28/2018 10:40 EDT by Pina Littlejohn Rn Intervention Information: acetaminophen Performed by Pina Littlejohn Rn on 08/28/2018 09:40:00 EDT acetaminophen,1000mg Oral Pain Assessment Pain Assessment : Follow-up assessment Pain Scale Goal : 3 Pain Improved by Intervention : Yes Pina Littlejohn Rn - 08/28/2018 10:46 EDT documented in this encounter Plan of Treatment Not on file documented as of this encounter Visit Diagnoses Not on filedocumented in this encounter
--- OUTSIDE RECORDS SUMMARY | 2024-08-09 13:22 | XMS_ITS | Encounter Summary ---
Author Organization [employer] Address [address] [place] [address] Care Team Providers Care Professional Security Officer Name Role Phone Unavailable Primary Care Provider Unavailabl e Encounter Details Date Type Department Care Team (Late st Contact Info) Description 07/07/2019 Transcribed Document [facility] [place] [address] [place] [address] ProviderMariela MD [address] [place] [address] Social History Tobacco Use Types Packs/Day Years [...] Conversion Note - Historical ProviderMD - 07/07/2019 9:00 PM CDT Patch Check Entered On: 07/08/2019 3:21 EDT Performed On: 07/07/2019 21:00 EDT by Georgina Olivo RN Patch Check Patch Check Result : No Patch Check - Type of Patch : No Patch Found Georgina Olivo RN - 07/08/2019 3:21 EDT documented in this encounter Plan of Treatment Not on file documented as of this encounter Visit Diagnoses Not on filedocumented in this encounter
--- OUTSIDE RECORDS SUMMARY | 2024-08-09 13:22 | XMS_ITS | Encounter Summary ---
Author Organization [employer] Address [address] [place] [address] Care Team Providers Care Dive Supervisor Name Role Phone Unavailable Primary Care Provider Unavailabl e Encounter Details Date Type Department Care Team (Late st Contact Info) Description 07/05/2019 Transcribed Document [facility] [place] Family Medicine [address] [place] [address] ProviderMariela MD [address] [place], [place] [id number] Social History Tobacco Use Types Packs/Day Years Used Date Smoking Tobacco: Never Assessed Comments Unknown Sex and Gender Information Value Date Recorded Sex Assigned at Female 09/02/2021 8:57 PM CDT Legal Sex Female 6:58 PM CDT Gender Identity Female 09/02/2021 8:57 PM CDT Sexual Orientation Not on file documented as of this encounter Miscellaneous Notes * Cerner Conversion Note - Historical ProviderMD - 07/05/2019 5:00 PM CDT Chart Check - Review Order Profile Entered On: 07/05/2019 17:52 EDT Performed On: 07/05/2019 17:00 EDT by JESUS MANUEL CABRAL LPN Chart Check [employer] Initiated/Discontinued as Appropriate : Yes All Active Orders Reviewed : Yes JESUS MANUEL CABRAL LPN - 07/05/2019 17:52 EDT Electronically signed by Chantal [facility] Conversion Solar Sales Assessor Cerbryce at 06/16/2022 8:30 PM CDT documented in this encounter Plan of Treatment Not on file documented as of this encounter Visit Diagnoses Not on filedocumented in this encounter
--- OUTSIDE RECORDS SUMMARY | 2024-08-09 13:22 | XMS_ITS | Encounter Summary ---
Author Organization [employer] Address [address] [place] [address] Care Team Providers Care Pipe Smoking Machine Offbearer Name Role Phone Unavailable Primary Care Provider Unavailabl e Encounter Details Date Type Department Care Team (Late st Contact Info) Description 07/06/2019 Transcribed Document [facility] [address] [place] [address] Jordan Barahona MD [address] [place] [address] Social History Tobacco Use Types Packs/Day Years Used Date Smoking Tobacco: Never Assessed Comments Unknown Sex and Gender Information Value Date Recorded Sex Assigned at Female 09/02/2021 8:57 PM CDT Legal Sex Female 6:58 PM CDT Gender Identity Female 09/02/2021 8:57 PM CDT Sexual Orientation Not on file documented as of this encounter Miscellaneous Notes * Cerner Conversion Note - Jordan Barahona MD - 07/06/2019 3:44 PM EDT Patient: SOFIA GILL Age: 79 years Sex: Female : 1940 Associated Diagnoses: None Author: JORDAN BARAHONA MD-INF ID Progress Note CC: Left knee pain Current antimicrobial therapy: Rocephin IV Subjective: 07/04/19; doing well; no events overnight; no fever, rash, sore throat, or diarrhea 07/05/19; doing well; no copmlaints, has low grade fevers, reports brace uncomfortable; no rash, sore throat, or diarrhea ros see hpi 07/06/19; no events overnight, doing well; no fever, rash, sore throat ros see hpi Objective Vitals Signs (last 24 hrs) Last Charted Minimum Maximum Temp 97.9 (JULY 05 07:00) 97.9 (JULY 05:00) 98.8 (JULY 04:) Mon HR 96 (JULY 05:00) 95 (JULY 04 23:00) 97 (JULY 04:) Resp Rate 14 (JULY 05 07:00) 14 (JULY 05:00) 17 (JULY 04:) SBP 104 (JULY 05:00) 104 (JULY 05:00) H 158 (JULY 04:00) DBP L 47 (JULY 05:00) L 47 (JULY 05:00) 65 (JULY 04:) MAP 62 (JULY 05:00) 62 (JULY 05:00) 62 (JULY 05:) SpO2 100 (JULY 05:00) 100 (JULY 04:00) 100 (JULY 04:) Physical Examination: Gen: Alert, arousable, pleasant HEENT: NC/AT, PERRLA, EOMI, sclera nonicteric, RESP: CTA bilaterally CV: RRR, GI: BS normoactive in all 4 quadrants, soft, : No chou in place MS: 2+ edema bilaterally knees, rightknee c/d/i, left knee in brace SKIN: No eruptions, lesions, or rashes, PICC in place NEURO: No focal deficits moves all 4 extremities Labs:Labs (Last four charted values) WBC 6.5 (JULY 05) 7.9 (JULY 03) 7.2 (JULY 02) H 10.6 (JUN 26) HB L 8.2 (JULY 05) L 8.8 (JULY 03) L 8.2 (JULY 02) L 9.7 (JUN 26) HCT L 25.6 (JULY 05) L 27.9 (JULY 03) L 25.8 (JULY 02) L 29.4 (JUN 26) Plt H 475 (JULY 05) H 535 (JULY 03) H 552 (JULY 02) H 431 (JUN 26) Na 136 (JULY 05) 136 (JULY 03) 136 (JULY 02) L 134 (JUN 28) K 4.0 (JULY 05) 4.5 (JULY 03) 4.3 (JULY 02) 4.5 (JUN 28) Cl L 99 (JULY 05) L 101 (JULY 03) L 100 (JULY 02) 102 (JUN 28) CO2 H 33 (JULY 05) 30 (JULY 03) 31 (JULY 02) 28 (JUN 28) BUN H 26 (JULY 05) 18 (JULY 03) 20 (JULY 02) 12 (JUN 28) Cr 0.80 (JULY 05) 0.70 (JULY 03) 0.60 (JULY 02) 0.60 (JUN 28) Glu R H 113 (JULY 05) H 120 (JULY 03) H 113 (JULY 02) H 116 (JUN 28) Ca 8.4 (JULY 05) L 8.1 (JULY 03) L 7.8 (JULY 02) L 8.1 (JUN 28) PT 11.4 (JULY 03) 11.4 (JULY 01) 11.5 (JUNE 29) 11.6 (JUN 27) INR 1.1 (JULY 03) 1.1 (JULY 01) 1.1 (JUNE 29) 1.1 (JUN 27) AST 11 (JULY 05) 14 (JULY 03) 16 (JULY 02) 15 (JUN 26) ALT L 12 (JULY 05) L 11 (JULY 03) L 11 (JULY 02) L 11 (JUN 26) ALK P 45 (JULY 05) 57 (JULY 03) 54 (JULY 02) 56 (JUN 26) T Bili 0.8 (JULY 05) 0.2 (JULY 03) 0.2 (JULY 02) 0.5 (JUN 26) PTN 7.2 (JULY 05) 7.1 (JULY 03) 6.6 (JULY 02) L 5.9 (JUN 26) ALB L 2.9 (JULY 05) L 1.9 (JULY 03) L 1.9 (JULY 02) L 2.4 (JUN 26) [facility]: [facility]/15 [facility] Blood cultures positive for group B strep [...] least 8 weeks then lifelong oral suppression slow improvement with decreased fevers and wbc working with pt RECOMMENDATIONS/PLANS: - continue ceftriaxone 2 gm daily and plan on 8 weeks of therapy with PICC line followed by chronic lifelong oral suppression -watch inflammatory markers hopefully esr will descend below 30 follow for adverse drug effects; diarrhea, elevated LFT's, fungal superinfection etc unclear cause of anemia may be from chronic disease, surgery, frequent blood draws documented in this encounter Plan of Treatment Not on file documented as of this encounter Visit Diagnoses Not on filedocumented in this encounter
--- OUTSIDE RECORDS SUMMARY | 2024-08-09 13:23 | XMS_ITS | Encounter Summary ---
Author Organization [employer] Address [address] [place] [address] Care Team Providers Care Ocean Import Representative Name Role Phone Unavailable Primary Care Provider Unavailabl e Encounter Details Date Type Department Care Team (Late st Contact Info) Description 08/29/2018 Transcribed Document [facility] [place] Family Medicine [facility] [place] [address] ProviderMariela MD [facility] [place] [address] Social History Tobacco Use Types Packs/Day Years Used Date Smoking Tobacco: Never Assessed Comments Unknown Sex and Gender Information Value Date Recorded Sex Assigned at Female 09/02/2021 8:57 PM CDT Legal Sex Female 6:58 PM CDT Gender Identity Female 09/02/2021 8:57 PM CDT Sexual Orientation Not on file documented as of this encounter Miscellaneous Notes * Min Conversion Note - Historical ProviderMD - 08/29/2018 3:58 PM CDT On Going Discharge Planning Entered On: 08/29/2018 15:58 EDT Performed On: 08/29/2018 15:58 EDT by MARY MCGRAW Care Management-Fire Coordinator Care Management Progress Note Discharge Arrangements : Patient Post-Acute Information Patient Name: SOFIA BARLOW Gender: Female : [birth year] Age: 78 Years No Post-Acute Placement(s) Listed No Post-Acute Service(s) Listed No [place] Referral(s) Listed Discharge Options Discussed with Patient : Home Health, Short term rehabilitation Barriers to Discharge Unresolved : All resolved MARY MCGRAW Care Management-Fire Coordinator - 08/29/2018 15:58 EDT Electronically signed by Chantal [facility] Conversion Clinical Cytopathologist Cerner at 06/16/2022 8:02 PM CDT documented in this encounter Plan of Treatment Not on file documented as of this encounter Visit Diagnoses Not on filedocumented in this encounter
--- OUTSIDE RECORDS SUMMARY | 2024-08-09 13:23 | XMS_ITS | Encounter Summary ---
Author Organization [employer] Address [address] [place] [id number] Care Team Providers Care Car Hiker Name Role Phone Unavailable Primary Care Provider Unavailabl e Encounter Details Date Type Department Care Team (Late st Contact Info) Description 08/29/2018 Transcribed Document [facility] [place] [facility] [address] ProviderMariela [place] [address] Social History Tobacco Use Types [...] Cerner Conversion Note - Historical ProviderMD - 08/29/2018 1:41 PM CDT Patient: SOFIA GILL Age: 78 Years Sex: Female : 1940 Admit Date 08/22/2018 07:12 Discharge Date 08/29/18 Primary Care Provider NILA CHO, [facility] Discharge Diagnosis Status post total right knee replacement 08/23/2018 Z96.651 ICD-10-CM Procedures SN - Proc - Procedure: Knee Total Joint Replacement (08/22/18 07:16:58 EDT) Reason for Hospitalization right knee pain Hospital Course Ms. Gill is a pleasant 78 yo WF who presents s/p Right Total Knee Arthroplasty on 08/22/2018. Initially she presented to Dr. Saenz's office with right knee pain. The pain had been going on for 10 years but had gotten progressively worse. She described it as a sharp pain. She tried NSAIDs and narcotics without relief of her pain and it started affecting her ADLs. She has fallen. She has used a walker as an assistive device. She saw Dr. 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 Pt denies a h/o DVT/PE. No trouble with anesthesia in the past. Pt has a h/o SHERRY and asthma and wears CPAP. She tolerated the procedure well. Her pain is controlled, +urination, + flatus. Mild dysuria once overnight so UA ordered. Her creatinine is elevated at 1.94 today. She has been consistently no flexion, strict elevation, no walking except to bedside commode, and F/U in clinic 2-3 weeks Discharge Instructions: 1)Elevate the knee and the entire lower extremity for as much as possible for 6 weeks and use ice liberally for 30 minutes 3-4 times a day. 2)Patient may shower on the 3rd day after surgery, but must keep the wound or dressing completely dry until yahaira are removed. The patient should not take any soaking baths until 1 month after surgery. 3) Patient may bear as much weight as tolerated on the affected extremity. TUBS (passive exertion) exercises for 30 minutes TID are effective initially after surgery, but after the 1st week, the patient should progress to prone hangs to help with knee straightening postoperatively. 4) Patient will be on blood thinner for 4 to 6 weeks after surgery. Blood thinner is ECASA 81mg tabs po BID x 45 days. 5) You may remove the RAJI day after surgery and leave the incision uncovered if it is completely dry. [place] out 2 weeks post op. 6) An RAJI wrap can be used to cover the wound to maintain compression and decrease swelling. 7) Call for wound drainage that is present beyond 7 days after surgery. 9) Motion is more important than strength or walking distance during the first 6 weeks after surgery. 10) Gabapentin 300 mg tabs, Oxycodone 5mg tabs, Tramadol 50mg q6h and Tylenol 1000mg TID will be used for postoperative pain control and should be weaned as the patient can tolerate. Vital Signs T: 36.7 ??C TMIN: 36.7 ??C TMAX: 37.1 ??C HR: 78(Monitored) RR: 16 BP: 109/51 SpO2: 95% Oxygen Settings (Last) Oxygen Therapy Mode: Room air (08/29/18 08:13:00 EDT) Oxygen Flow Rate: 2 Liter/Min (08/22/18 12:40:00 EDT) Physical Exam General: Alert and oriented, well [...] and affect Neurologic: Awake, alert, and oriented Discharge Disposition Home with Home Care Discharge Follow Up [facility] - SOLOMON MCCRACKEN PA-C - 09/08/2018 09:00 Discharge Medications (26) Active aspirin 81 mg oral tablet 81 mg = 1 Tab, Oral, Daily Benadryl 25 mg oral tablet 25 mg = 1 Tab, PRN, Oral, Q4H Caltrate 600 + D 1 Tab, Oral, BID Colace 100 mg oral capsule 100 mg = 1 Cap, Oral, BID CoQ10 1 Tab, Oral, Daily Crestor 10 mg oral tablet 10 mg = 1 Tab, Oral, At Bedtime cyanocobalamin 5000 mcg oral tablet, extended release 5,000 mcg = 1 Tab, Oral, Daily Cymbalta 60 mg oral delayed release capsule 60 mg = 1 Cap, Oral, Daily diclofenac 75 mg, Oral, BID Dulcolax Laxative 10 mg rectal suppository 10 mg = 1 Supp, PRN, Rectal, 1-Time fluticasone 50 mcg/inh nasal spray 2 [place], PRN, Nostrils Both, BID gabapentin 300 mg oral capsule 300 mg = 1 Cap, PRN, Oral, At Bedtime Keflex 250 mg oral capsule 500 mg = 2 Cap, Oral, Q6HInt Keflex 500 mg oral capsule 500 mg = 1 Cap, Oral, TID Lasix 40 mg oral tablet 40 mg = 1 Tab, Oral, Daily levocetirizine 5 mg oral tablet 5 mg = 1 Tab, Oral, QPM lisinopril 10 mg oral tablet 10 mg = 1 Tab, Oral, Daily magnesium citrate 100 mg oral tablet 1 Tab, Oral, BID MiraLax oral powder for reconstitution 17 Gram, Oral, Daily Non Formulary Medication 1 Cap, Oral, Daily oxyCODONE 5 mg oral tablet 5 mg = 1 Tab, PRN, Oral, Q4H oxyCODONE 5 mg oral tablet 10 mg = 2 Tab, PRN, Oral, Q4H potassium chloride 20 mEq oral tablet, extended release 20 mEq = 1 Tab, Oral, BID Synthroid 100 mcg (0.1 mg) oral tablet 100 mcg = 1 Tab, Oral, Daily traMADol 50 mg oral tablet 100 mg = 2 Tab, PRN, Oral, Q6H Ventolin HFA 90 mcg/inh inhalation aerosol 1 Puff, PRN, Inhalation, QID Code Status Start: 08/22/18 12:12:00 EDT, Full Code, Continuous Order Condition on Discharge stable [facility]ing Physicians BETZAIDA MCCAIN MD Current Diet Order Diet, Adult - Ordered -- Start: 08/22/18 12:12:00 EDT, Regular Diet, Food Consistency: Regular texture, Isolation: Standard Precautions Pending Labs Ordered BMP Basic Metabolic Panel Specimen Type: Blood, AM Draw collect, 08/23/18 4:00:00 EDT, Daily, For: 99 Day(s), Stop: 11/29/18 4:00:00 EDT, Lab Collect Time Spent on Discharge 30 min Electronically signed by Maureen Cornejo Conversion [employer] Custodian Cerner at 06/16/2022 8:06 PM CDT documented in this encounter Plan of Treatment Not on file documented as of this encounter Visit Diagnoses Not on filedocumented in this encounter
--- OUTSIDE RECORDS SUMMARY | 2024-08-09 13:23 | XMS_ITS | Encounter Summary ---
Author Organization [employer] Address [address] [place] [address] Care Team Providers Care High Climber Name Role Phone Unavailable Primary Care Provider Unavailabl e Encounter Details Date Type Department Care Team (Late st Contact Info) Description 07/19/2019 Transcribed Document [facility] [place] Family Medicine [address] [place] [address] ProviderMariela MD [address] [place] [address] Social History Tobacco Use Types [...] Conversion Note - Historical ProviderMD - 07/19/2019 2:03 PM CDT Stroke/Warfarin Instructions Entered On: 07/19/2019 14:03 EDT Performed On: 07/19/2019 14:03 EDT by Marisela Rangel RN Stroke/Warfarin Instructions Stroke/TIA Discharge Ins : Open Warfarin Discharge Ins : Open Marisela Rangel RN - 07/19/2019 14:03 EDT Stroke/TIA Discharge Instructions Individualized Stroke Risk Factors *Q : Obesity Stroke Education Handouts Given *Q : Yes Marisela Rangel RN - 07/19/2019 14:03 EDT Stroke Education Materials Given-Grid Activation of EMS *Q : Verbalizes understanding Follow-up Care After Discharge *Q : Verbalizes understanding Medications prescribed at DC *Q : Verbalizes understanding Risk Factors for Stroke *Q : Verbalizes understanding Warning S&S of Stroke *Q : Verbalizes understanding Marisela Rangel RN - 07/19/2019 14:03 EDT Stroke/TIA Signs/Symptoms to Report Immediately : Sudden onset difficulty speaking, Sudden onset difficulty understanding speech, Sudden onset change in vision, Sudden onset weakness particulary on one side of the body, Sudden onset numbness/tingling, Sudden severe headache, Sudden dizziness or trouble with gait, Call 9-1-1: EMS activation is crucial My LDL Level: : LDL Level No qualifying data available. Marisela Rangel RN - 07/19/2019 14:03 EDT Warfarin Discharge Instructions Last INR Result : INR: 1.1 (Normal), Reference Range: (0.9 - 1.1), 07/19/2019 5:48 AM DIAGNOSIS THERAPEUTIC RANGE a) Primary and secondary prevention of 2.0-3.0 venous thrombosis b) Active venous thrombosis, pulmonary 2.0-4.0 embolism and prevention of recurrent venous thrombosis c) Prevention of arterial thromboembolism 3.0-4.5 including patients with mechanical heart valves Notify Provider of Signs/Symptoms of : Significant bleeding, Clot Marisela Rangel RN - 07/19/2019 14:03 EDT documented in this encounter Plan of Treatment Not on file documented as of this encounter Visit Diagnoses Not on filedocumented in this encounter
--- OUTSIDE RECORDS SUMMARY | 2024-08-09 13:23 | XMS_ITS | Encounter Summary ---
Author Organization [employer] Address [address] [place] [id number] Care Team Providers Care Layout Artist Name Role Phone Unavailable Primary Care Provider Unavailabl e Encounter Details Date Type Department Care Team (Late st Contact Info) Description 06/23/2019 Transcribed Document [facility] [place] [address] [place] [address] ProviderMariela MD [address] [id number] Social History Tobacco Use Types Packs/Day Years [...] Conversion Note - Historical ProviderMD - 06/23/2019 5:00 PM CDT Chart Check - Review Order Profile Entered On: 06/23/2019 18:48 EDT Performed On: 06/23/2019 17:00 EDT by Vidhi Bailey RN Chart Check Powerplans Initiated/Discontinued as Appropriate : Yes All Active Orders Reviewed : Yes Vidhi Bailey RN - 06/23/2019 18:48 EDT Electronically signed by Chantal [facility] Conversion School Bus Attendant Cerner at 06/16/2022 8:14 PM CDT documented in this encounter Plan of Treatment Not on file documented as of this encounter Visit Diagnoses Not on filedocumented in this encounter
--- OUTSIDE RECORDS SUMMARY | 2024-08-09 13:23 | XMS_ITS | Encounter Summary ---
Author Organization [employer] Address [address] [place] [address] Care Team Providers Care Housekeeping And Laundry Team Leader Name Role Phone Unavailable Primary Care Provider Unavailabl e Encounter Details Date Type Department Care Team (Late st Contact Info) Description 08/29/2018 Transcribed Document [facility] [place] [facility] [place] [address] ProviderMariela MD [facility] [place] [id number] Social History Tobacco Use Types Packs/Day Years Used Date Smoking Tobacco: Never Assessed Comments Unknown Sex and Gender Information Value Date Recorded Sex Assigned at Female 09/02/2021 8:57 PM CDT Legal Sex Female 6:58 PM CDT Gender Identity Female 09/02/2021 8:57 PM CDT Sexual Orientation Not on file documented as of this encounter Miscellaneous Notes * Cerner Conversion Note - Mariela ProviderMD - 08/29/2018 7:48 AM CDT Evaluation, Physical Therapy Entered On: 08/29/2018 11:21 EDT Performed On: 08/29/2018 10:00 EDT by CHAITANYA SIMON, PT General Information, PT Visit Type, PT : Initial evaluation Patient Orders : Order Date Order Ordering 08/22/2018 12:14 PT Evaluation and Treatment Ordered By: NIMO SAENZ MD-ORT 08/22/2018 12:14 PT Treatment Instructions Ordered By: NIMO SAENZ MD-ORT 08/22/2018 12:14 PT Treatment Instructions Ordered By: NIMO SAENZ MD-ORT 08/22/2018 12:14 PT Treatment Instructions Ordered By: NIMO SAENZ MD-ORT 08/22/2018 12:14 PT Treatment Instructions Ordered By: NIMO SAENZ MD-ORT 08/22/2018 13:48 PT Additional Treatment Ordered By: DELMY ALLEN Physical Therapist 08/29/2018 07:48 PT Evaluation and Treatment Ordered By: JEANNE CASEY PAC Active Diagnoses : 08/23/2018 10:34 Presence of right artificial knee joint Therapy Diagnosis, PT : aftercare following RTKA Admission Date : 08/22/2018 07:12 Personal Devices : Personal Devices No Devices Recorded Assistive Devices : Assistive Devices Wheelchair Precautions in Place : Fall prevention measures, high risk CHAITANYA SIMON, PT - 08/29/2018 11:10 EDT General Status Patient Received Status : Supine in bed, Bed alarm activated Treatment Start Time : 08/29/2018 10:00 EDT Patient Left Status : Up in chair, Chair alarm activated, RN/PCT informed, Communication board completed, All needs met and within reach RN/PCT Informed Comment : Yes, RN approved pt for PT eval and pt agreeable Treatment End Time : 08/29/2018 10:46 EDT Treatment Time : 46 Minute(s) CHAITANYA SIMON, PT - 08/29/2018 11:10 EDT History and Environment Living Situation, Therapy : Home Patient Lives With : Alone Persons Assisting Patient at Home : Child/Children Professional Skilled Services : None Persons Providing Information : Patient Home Equipment Therapy, PT : Cane, Commode, Shower Equipment, Walker, Wheelchair Home Setup : Two story Bedroom Location : Main level Bathroom #1 Location : Main level Stairs : Yes Stair Location(s) : Inside, Outside Inside Stairs, Number of Steps : 14 Stairs Inside Comment : can stay on main level Outside Stairs, Number of Steps : 3 Railing Inside : Yes Railing Outside : Yes Outside Railing Position : Right, going up Ramp : No CHAITANYA SIMON, PT - 08/29/2018 11:10 EDT Prior Level of Function PT GRID Prior LOF Ambulation, Household : Independent Prior LOF Ambulation, Community : Assist needed Prior LOF Bed Mobility : Independent Prior LOF Toileting : Independent Prior LOF Transfer : Independent CHAITANYA SIMON, PT - 08/29/2018 11:10 EDT Upper Extremity Upper Extremity Dominance : Right Right UE Active ROM : WFL Right UE Strength : WFL Left UE Active ROM : WFL Left UE Strength : WFL Right UE Strength : WFL Left UE Strength : WFL CHAITANYA SIMON, PT - 08/29/2018 11:10 EDT Lower Extremity RLE Active ROM : Impaired Right LE Active Assist ROM : Impaired RLE Passive ROM : Impaired Right LE Strength : Impaired LLE Active ROM : WFL Left LE Strength : Impaired Lower Extremity Comment : RLE is impaired secondary to surgery 3/5 grossly assessed LLE is impaired due to previous surgeries 3/5 grossly assessed CHIATANYA SIMON, PT - 08/29/2018 11:10 EDT Functional Mobility Mobility Grid Bed Scooting : Rehab Complete independence Supine to Sit : Rehab Modified independence Sit to Stand : Supervision/set-up Bed to Chair : Rehab Minimal assistance Stand to Sit : Rehab Minimal assistance CHAITANYA SIMON, PT - 08/29/2018 11:10 EDT Gait Training/Assessment, PT Weight Bearing Status : As tolerated Gait Assistance Level : Assist, minimal Walking Distance : 45 feet with RWX, min assist x1, WBAT, wide base of support, decreased heel strike on LLE, pt tending to walk on toes of left foot, cues for sequencing and increased stance time on RLE Ambulatory Devices : Gait belt, Walker, front wheel Gait Deviations : Yes Gait Training Comment : see above Stair(s) Ascend/Descend Training : No CHAITANYA SIMON, PT - 08/29/2018 11:10 EDT Neuromuscular Reeducation, PT Balance Comment : good sitting and standing CHAITANYA SIMON, PT - 08/29/2018 11:10 EDT Neurological/Sensory Overall Sensory Response : Intact Light Touch Response : Intact CHAITANYA SIMON, PT - 08/29/2018 11:10 EDT Activity Tolerance, PT Activity Comment : good CHAITANYA SIMON, PT - 08/29/2018 11:10 EDT Cognition Assessment, PT Orientation : Oriented x 4 Attention Assessment : Present CHAITANYA SIMON, PT - 08/29/2018 11:10 EDT Edu Topics Physical Therapy Education Grid Bed Mobility Training : Verbalizes understanding, Returns demonstration Gait Training : Verbalizes understanding, Returns demonstration, Needs further teaching Home Program/Exercises : Needs further teaching Transfer Training : Verbalizes understanding, Returns demonstration Use of Assistive Device : Verbalizes understanding, Returns demonstration CHAITANYA SIMON, PT - 08/29/2018 11:10 EDT Indication Assesessment, PT Physical Therapy Indicated : Yes Interdisciplinary Consultation(s) Needed : No PT Problem List : Impaired, strength Potential Barriers To Therapy : Acuity of Illness CHAITANYA SIMON, PT - 08/29/2018 11:10 EDT Plan of Care, PT PT Tx Plan/Goals Established w Patient : Yes PT Frequency Rehab : Daily, twice (bid) Other PT Treatment Provided This Date : gait ther ex PT Duration Rehab : Seven Days PT Treatments Planned : Bed mobility training, Gait training, Safety education, Stair training, Therapeutic exercises, Transfer training Plan of Care Comment, PT : Pt will be seen twice daily for PT treatment which may include training in transfers, bed mobility, gait, stairs, use of AD, balance training, therapeutic exercise, HEP instruction and pt education on safety precautions CHAITANYA SIMON, PT - 08/29/2018 11:10 EDT Nursing Home Goals Other PT LTG Grid Goal #6 Goal #1 Goal #2 Goal #3 Other : Pt will be instructed in The 4 keys to recovery (Gtz Rules), and be provided a written copy in order to maximize adherence to Dr. Saenz's post op knee protocol Patient will ambulate at least 50 feet with RWx and no more than Alexandra without LOB or safety concerns to allow safe household or facility ambulation upon [facility] care DC. Patient will participate with therex per TKA postop protocol to promote maximum ROM and strength for functional mobility upon inpatient DC. Patient will ascend/descend at least 3 steps with 1 rails PRN and no more than Alexandra and min VCs for safe entrance to home upon acute care DC, OR will verbalize understanding for curb/platform step navigation with RWx if DC to facility. Date to Meet : 09/02/2018 EDT 08/29/2018 EDT 08/29/2018 EDT 08/29/2018 EDT Goal Status : Initial goal Goal met Goal met Discontinue Date Met : 08/24/2018 EDT 08/25/2018 EDT Comment : Bleeding during first rep of knee flexion. Pt going to rehab CHAITANYA SIMON, PT - 08/29/2018 11:21 EDT CHAITANYA SIMON, PT - 08/29/2018 11:10 EDT CHAITANYA SIMON, PT - 08/29/2018 11:10 EDT CHAITANYA SIMON, PT - 08/29/2018 11:10 EDT Goal #5 Other : Pt will participate in therapeutic exercise training and be issued a written HEP in order to increase strength for improved gait and provide carryover into the home environment Date to Meet : 09/02/2018 EDT Goal Status : Initial goal Date Met : Comment : CHAITANYA SIMON, PT - 08/29/2018 11:10 EDT Treatment Note Subjective Comment : agreeable. My knee hurts all of the time Patient's Response to Treatment : fair CHAITANYA SIMON, PT - 08/29/2018 11:10 EDT Additional Objective Information : eval gait as per note PT assisted pt to the BSC and remained with pt to supervise pt for safety with transfers, dynamic standing balance, assistance with clothing and supervision with mobility UIC, pt performed 10 reps each of ankle pumps, quad sets, gluteal sets, seated knee flexion and long arc quads to RIght knee. Pt complained of increased pain and requested to stop. Pt able to perform independent straight leg raise on RLE. RLE on TUBS x 30 mins with zero knee extension pillow in place Needs in reach and nursing notified CHAITANYA SIMON, PT - 08/29/2018 11:21 EDT Assessment : Pt would benefit from continued skilled PT services in the acute care setting to improve her level of mobility and assist her to return to her PLOF Plan for Treatment : continue per eval POC CHAITANYA SIMON, PT - 08/29/2018 11:10 EDT Pain Assessment Pain Scaled Used : 0-10 Pain scale Pain Score Pre-Intervention : 8 Pain Score During-Intervention : 9 Pain Score Post-Intervention. : 8 Pain Comment : Nursing notified CHAITANYA SIMON, PT - 08/29/2018 11:10 EDT Image 1 - Images currently included in the form version of this document have not been included in the text rendition version of the form. Anticipated Discharge Needs, OT/PT Anticipated Discharge to : Other: to be determined pending pt's progress toward goals CHAITANYA SIMON, PT - 08/29/2018 11:10 EDT [place] [facility] PT Therap. Exercise 15 min : 1 Gait Training Each 15 Min : 1 PT Annette Low Complexity : 1 CHAITANYA SIMON, PT - 08/29/2018 11:10 EDT documented in this encounter Plan of Treatment Not on file documented as of this encounter Visit Diagnoses Not on filedocumented in this encounter
--- OUTSIDE RECORDS SUMMARY | 2024-08-09 13:23 | XMS_ITS | Encounter Summary ---
Author Organization [employer] Address [address] [place] [id number] Care Team Providers Care Optical Effects Layout Person Name Role Phone Unavailable Primary Care Provider Unavailabl e Encounter Details Date Type Department Care Team (Late st Contact Info) Description 07/07/2019 Transcribed Document [facility] [place] [facility] [place] [address] ProviderMariela MD [facility] [place] [address] Social History Tobacco Use Types [...] Conversion Note - Historical ProviderMD - 07/07/2019 3:45 PM CDT Patient: SOFIA BARLOW Age: 79 [...] pain under control, no trouble w. urination. ???Patient stated that he she has a history of anemia H&H continued to drop ???On IV albumin followed by diuresis ???We will do anemia study on Wednesday ???Transfusion of packed RBCs when hemoglobin reached 7 or below ???Participating more with PT/OT Review of Systems Constitutional: No fever, No [...] 0.9% 50 mL 2 Gram, IV Piggyback, [id number] cyanocobalamin 1,000 mcg tab 5,000 mcg 5 [...] Oral, Q4H fluticasone 0.05% nasal spray 2 [place], Nostrils Both, BID magnesium hydroxide 8% liq [...] Sleep apnea Physical Examination VS/Measurements Vital Measurements 07/07/2019 7:00 EDT Systolic Blood Pressure 134 mmHg Diastolic Blood Pressure 57 mmHg LOW Temperature Source Oral Temperature Mode Fahrenheit Temperature, Fahrenheit 97.6 Deg F Clinical Temperature, C 36.4 Deg C Heart Rate Monitored 90 bpm Respiratory Rate 18 Breaths/Min Oxygen Saturation 95 % General: Alert [...] Lymphatics: No lymphadenopathy neck, axilla, groin. Musculoskeletal: left lower extremity in a brace. Integumentary: Warm, Intact, No rash, WOUND STABLE. Neurologic: Alert, Oriented, No focal deficits. Psychiatric: Cooperative, Appropriate mood & affect. Review / Management Results review: All Results 07/07/2019 4:58 EDT Sodium Level 136 mmol/L Potassium Level 4.0 mmol/L Chloride Level 99 mmol/L LOW Carbon Dioxide Level 32 mmol/L Anion Gap 9 Glucose Level 115 mg/dL HI Blood Urea Nitrogen 29 mg/dL HI Creatinine Level 0.70 mg/dL eGFR >60 mL/min/1.73m2 eGFR NonAfrican >60 mL/min/1.73m2 Bun/Creatinine 41.4 HI Calcium Level 8.6 mg/dL Protein Total 7.2 Gram/dL Albumin Level 3.1 Gram/dL LOW Globulin 4.1 Gram/dL A/G Ratio 0.8 LOW Bilirubin Total 0.3 mg/dL Alk Phos 45 Units/Liter AST 12 Units/Liter ALT 13 Units/Liter WBC 6.3 K/uL RBC 2.59 Million/uL LOW Hgb 7.9 g/dL LOW Hct 25.1 % LOW MCV 96.9 fL HI MCH 30.5 pg MCHC 31.5 Gram/dL LOW Platelet Count 430 K/uL HI MPV 8.9 fL LOW RDW 12.9 % Neut % 57.3 % Neut # 3.59 K/uL Lymph % 25.0 % Lymph # 1.57 x10(3)/uL [place] % 12.1 % HI [place] # 0.76 K/uL Eos % 4.8 % Eos # 0.30 x10(3)/uL Baso % 0.3 % Baso # 0.02 x10(3)/uL Slide Review No IG# 0.03 x10(3)/uL IG% 0.50 % PT 11.8 Second(s) INR 1.1 07/06/2019 5:07 EDT Sodium Level 136 mmol/L [...] % 23.0 % Lymph # 1.50 x10(3)/uL [place] % 12.3 % HI [place] # 0.80 K/uL Eos % 3.7 % Eos # 0.24 x10(3)/uL Baso % 0.5 % Baso # 0.03 x10(3)/uL Slide Review No IG# 0.03 x10(3)/uL IG% 0.50 % . Impression and Plan Diagnosis Chronic venous [...] renal function, blood glucose, and urine output. until gone IV anticommended by infectious disease. Close monitoring fluid and electrolytes. Fall risk precautions. Sleep apnea precautions. Stress ulcer We will check anemia study on Wednesday. Close monitoring H&H. . Orders Order Profile (Selected) Documented Medications Documented Aspir 81 oral delayed release tablet: 1 Tab, Oral, Daily, 0 Refill(s) CoQ10: 1 Tab, Oral, Daily, 0 Refill(s) Crestor 10 mg oral tablet: 1 Tab, Oral, Tab, At Bedtime, # 30 Tab, 0 Refill(s) Cymbalta 60 mg oral delayed release capsule: 1 Cap, Oral, DR Cap, Daily, (do not crush or chew), # 30 Cap, 0 Refill(s) Synthroid 100 mcg (0.1 mg) oral tablet: 1 Tab, Oral, Tab, Daily, 0 Refill(s) albuterol 90 mcg/inh inhalation powder: 1 Puff, Inhalation, Powder, Q6H, PRN as needed, # 1 Each, 0 Refill(s) cyanocobalamin 5000 mcg oral tablet, extended release: 1 Tab, Oral, Daily, 0 Refill(s) diclofenac sodium 75 mg oral delayed release tablet: 1 Tab, Oral, DR Tab, BID, # 60 Tab, 0 Refill(s) fluticasone 50 mcg/inh nasal spray: 2 [place], Nostrils Both, [place], BID, PRN Allergies, 0 Refill(s) furosemide 40 mg oral tablet: 1 Tab, Oral, BID, 0 Refill(s) levocetirizine 5 mg oral tablet: 1 Tab, Oral, Tab, QPM, # 30 Tab, 0 Refill(s) lisinopril 10 mg oral tablet: 1 Tab, Oral, Tab, Daily, 0 Refill(s) magnesium oxide 250 mg oral tablet: 2 Tab, Oral, BID, gets over the counter, 0 Refill(s) potassium chloride 20 mEq oral tablet, extended release: 1 Tab, Oral, BID, 0 Refill(s) traMADol 50 mg oral tablet: 2 Tab, Oral, Tab, Q12H, PRN for pain, # 60 Tab, 0 Refill(s). documented in this encounter Plan of Treatment Not on file documented as of this encounter Visit Diagnoses Not on filedocumented in this encounter
--- OUTSIDE RECORDS SUMMARY | 2024-08-09 13:23 | XMS_ITS | Encounter Summary ---
Author Organization [employer] Address [address] [place] [address] Care Team Providers Care Residential Substance Abuse Counselor Name Role Phone Unavailable Primary Care Provider Unavailabl e Encounter Details Date Type Department Care Team (Late st Contact Info) Description 07/07/2019 Transcribed Document [facility] Family Medicine [facility] [place] [address] ProviderMariela MD [facility] [place] [address] Social History Tobacco Use Types [...] Conversion Note - Historical ProviderMD - 07/07/2019 10:02 AM CDT Patient: SOFIA GILL Age: 79 years Sex: Female : 1940 Associated Diagnoses: None Author: CHRISSY HENDERSON, PharmD, BCPS HPI: 06/15 Pt admitted to [facility] [place] with infected L-TKA with [...] 24 hrs) Last Charted Minimum Maximum Temp 97.6 (JULY 06 07:00) 97.6 (JULY 06 07:00) H 100.9 (JULY 05 23:30) Mon HR 90 (JULY 06 07:00) 89 (JULY 05 14:00) 101 (JULY 05 23:30) Resp Rate 18 (JULY 06 07:00) 14 (JULY 05 14:00) 18 (JULY 05 23:30) SBP 134 (JULY 06 07:00) 123 (JULY 05 23:30) 134 (JULY 06 07:00) DBP L 57 (JULY 06 07:00) L 48 (JULY 05 23:30) L 57 (JULY 06 07:00) MAP 67 (JULY 05 23:30) 67 (JULY 05 23:30) 73 (JULY 05 14:00) SpO2 95 (JULY 06 07:00) 95 (JULY 05 23:30) 100 (JULY 05 14:00) Intake & Output Totals Last 24 Hours (7a-7a) Input Total: 1094 mL Output Total: 2550 mL Balance: -1456 mL Labs (Last four charted values) WBC 6.3 (JULY 06) 6.5 (JULY 05) 7.9 (JULY 03) 7.2 (JULY 02) HB L 7.9 (JULY 06) L 8.2 (JULY 05) L 8.8 (JULY 03) L 8.2 (JULY 02) HCT L 25.1 (JULY 06) L 25.6 (JULY 05) L 27.9 (JULY 03) L 25.8 (JULY 02) Plt H 430 (JULY 06) H 475 (JULY 05) H 535 (JULY 03) H 552 (JULY 02) Na 136 (JULY 06) 136 (JULY 05) 136 (JULY 03) 136 (JULY 02) K 4.0 (JULY 06) 4.0 (JULY 05) 4.5 (JULY 03) 4.3 (JULY 02) Cl L 99 (JULY 06) L 99 (JULY 05) L 101 (JULY 03) L 100 (JULY 02) CO2 32 (JULY 06) H 33 (JULY 05) 30 (JULY 03) 31 (JULY 02) BUN H 29 (JULY 06) H 26 (JULY 05) 18 (JULY 03) 20 (JULY 02) Cr 0.70 (JULY 06) 0.80 (JULY 05) 0.70 (JULY 03) 0.60 (JULY 02) Glu R H 115 (JULY 06) H 113 (JULY 05) H 120 (JULY 03) H 113 (JULY 02) Ca 8.6 (JULY 06) 8.4 (JULY 05) L 8.1 (JULY 03) L 7.8 (JULY 02) PT 11.8 (JULY 06) 11.4 (JULY 03) 11.4 (JULY 01) 11.5 (JUNE 29) INR 1.1 (JULY 06) 1.1 (JULY 03) 1.1 (JULY 01) 1.1 (JUNE 29) AST 12 (JULY 06) 11 (JULY 05) 14 (JULY 03) 16 (JULY 02) ALT 13 (JULY 06) L 12 (JULY 05) L 11 (JULY 03) L 11 (JULY 02) ALK P 45 (JULY 06) 45 (JULY 05) 57 (JULY 03) 54 (JULY 02) T Bili 0.3 (JULY 06) 0.8 (JULY 05) 0.2 (JULY 03) 0.2 (JULY 02) PTN 7.2 (JULY 06) 7.2 (JULY 05) 7.1 (JULY 03) 6.6 (JULY 02) ALB L 3.1 (JULY 06) L 2.9 (JULY 05) L 1.9 (JULY 03) L 1.9 (JULY 02) Creatinine Clearance (Current Encounter/Past 24 Hours) Creatinine Level 0.70 mg/dL 07/07/2019 05:54 Bun/Creatinine 41.4 HI 07/07/2019 05:54 Estimated Creatinine Clearance 45.90 mL/Min 07/07/2019 05:54 Culture Results: 06/16 & 06/20 knee tissue strep agal Group B Date 06/27 06/28 06/29 5/ 5 5 INR 1.1 --- 1.1 1.1 1.1 1.1 Dose 4mg 2mg 2mg 2 2 2 Date INR Dose A/P: 1. Patient's orthopedic surgeon wants to use warfarin 2mg daily for DVT prophylaxis instead of lovenox. Continue Warfarin 2mg daily as INR is stable 2. INR goal is to be LESS than 2. 3. INR is not rising on warfarin 2mg (as is the goal per ortho group). Will adjust INR check to Q3days. Rx to follow up on Wednesday, Chrissy Henderson, PharmD [phone] Electronically signed by Chantal, [facility] Conversion Cyanide Case Hardener Cerner at 06/16/2022 8:21 PM CDT documented in this encounter Plan of Treatment Not on file documented as of this encounter Visit Diagnoses Not on filedocumented in this encounter
--- OUTSIDE RECORDS SUMMARY | 2024-08-09 13:23 | XMS_ITS | Encounter Summary ---
Author Organization [employer] Address [address] [place] [address] Care Team Providers Care I&C Technician Name Role Phone Unavailable Primary Care Provider Unavailabl e Encounter Details Date Type Department Care Team (Late st Contact Info) Description 07/07/2019 Transcribed Document [facility] [place] [facility] [place] [address] ProviderMariela MD [facility] [place] [address] Social History Tobacco Use Types [...] Conversion Note - Historical ProviderMD - 07/07/2019 1:29 PM CDT Interdisciplinary Rounds Entered On: 07/07/2019 13:35 EDT Performed On: 07/07/2019 13:29 EDT by СВЕТЛАНА WANG Interdisciplinary Rounds Working Summary Patient's Priority Needs : IV abx -> plan 8 wks then transition to PO PT/OT Brace in place-> dressing changed daily Current DRG/LOS : 560 Aftercare, musculoskeletal & connective tissue 21-25 days Anticipated DC 07/21/2019 СВЕТЛАНА WANG - 07/07/2019 13:29 EDT Interdisciplinary Rounds Meeting Interdisciplinary Rounds Date : 07/05/2019 EDT Interdisciplinary Rounds Participants : nursing agency manager, Dietitian, Pharmacist, Physical Therapy, Other: WOCN Interdisciplinary Rounds Physician(s) Assessment/Plan Summar : Course: Plan/ cont. current care, pt/ot, encourage oral fluid intake, nutritional support, encourage use of respirometer, motoring blood pressure, renal function, blood glucose, and urine output. cont. on IV antibiotics .Pain control .DVT prophylaxis .Cont on IV albumin infusion followed by diuresis.close monitoring fluid & electrolytes .Fall risk precautions . Stress ulcer prophylaxis.. Orders Order Profile (Selected) Inpatient Orders Ordered (Scheduled) CBC w/ Auto Diff: Specimen Type: Blood, AM Draw collect, 07/06/19 4:00:00 EDT, 1-Time, Stop: 07/06/19 4:00:00 EDT, Nurse Collect CMP Comprehensive Metabolic Panel: Specimen Type: Blood, AM Draw collect, 07/06/19 4:00:00 EDT, 1-Time, Stop: 07/06/19 4:00:00 EDT, Nurse Collect. Signature Line Electronically Signed on 07/05/2019 07:18 PM DONNA DRIVER MD-INT RECOMMENDATIONS/PLANS: - continue ceftriaxone 2 gm daily and plan on 8 weeks of therapy with PICC line followed by chronic lifelong oral suppression -watch inflammatory markers hopefully esr will descend below 30 follow for adverse drug effects; diarrhea, elevated LFT's, fungal superinfection etc unclear cause of anemia may be from chronic disease, surgery, frequent blood draws Signature Line Electronically Signed on 07/05/2019 04:27 PM SHAWANDA BARAHONA MD-INF Final Interdisciplinary Rounds Participants Summary : Nursing Interdisciplinary Rounds Summary 07:41:00 BRACE FROM WAIST TO FOOT FOR LT KNEE ALIGNMENT. LT KNEE REVISION LT UA PICC ALBUMIN INFUSIONS. [email or web address] ROOM AIR DURING DAY Signed By: JESUS MANUEL CABRAL LPN Dietitian Interdisciplinary Rounds Note 09:45:00 Regular + ensure BID 75-100% all meals LBM 5/5 Signed By: Daniella Hunt Dietitian PT Interdisciplinary Rounds Note 07:52:00 Ambulates 24ft with RWx min assist x2 and chair follow. WBAT on left with brace and complains of knee pain with amb. Min assist for bed mobility Signed By: MIGDALIA TOBIN PTA BUTLER, RAYLINA - 07/07/2019 13:29 EDT Electronically signed by Chantal [facility] Conversion Maintenance Foreman Cerner at 06/16/2022 8:22 PM CDT documented in this encounter Plan of Treatment Not on file documented as of this encounter Visit Diagnoses Not on filedocumented in this encounter
--- OUTSIDE RECORDS SUMMARY | 2024-08-09 13:23 | XMS_ITS | Encounter Summary ---
Author Organization [employer] Address [address] [place] [id number] Care Team Providers Care Grain And Yeast Plants Supervisor Name Role Phone Unavailable Primary Care Provider Unavailabl e Encounter Details Date Type Department Care Team (Late st Contact Info) Description 08/28/2018 Transcribed Document [facility] [place] [address] [place] [address] ProviderMariela MD [address] [place] [address] Social History Tobacco Use Types Packs/Day Years [...] Conversion Note - Historical ProviderMD - 08/28/2018 3:00 PM CDT Pain Assessment Entered On: 08/28/2018 15:09 EDT Performed On: 08/28/2018 15:24 EDT by Pina Littlejohn Rn Intervention Information: acetaminophen Performed by Pina Littlejohn Rn on 08/28/2018 14:24:00 EDT acetaminophen,1000mg Oral Pain Assessment Pain Assessment : Follow-up assessment Pain Scale Goal : 3 Pain Improved by Intervention : Yes Pina Littlejohn Rn - 08/28/2018 15:09 EDT documented in this encounter Plan of Treatment Not on file documented as of this encounter Visit Diagnoses Not on filedocumented in this encounter
--- OUTSIDE RECORDS SUMMARY | 2024-08-09 13:23 | XMS_ITS | Data Portability ---
Author Organization SUHAS RADHA Regalado [place] [facility] Address [address] [place] [address] Assessment No assessment recorded. Plan of Treatment Reminders Order Date Submit Date Provider Last Modified By Organization Details Last Modified Time Details Appointments None recorded. Lab urinalysis panel, auto 2023 024 [facility], [address], [place], [address], 4 08:06:03 urinalysis , dipstick, auto 2017 018 [facility], [address], [address], [place], [address], 8 19:59:53 urinalysis , dipstick, auto 2017 018 [facility], [address], [address], [place], [address], 8 06:37:24 Referral None recorded. Procedures None recorded. Surgeries cystoscopy (SURG) 2023 024 [email or web address], [address], [place], [address], 4 16:22:49 Imaging US, retroperit oneum, limited - US KIDNEY BILAT WITHOUT BLADDERPLE ASE CONTACT SOFIA BARLOW @ 2023 024 [facility] ([facility]), [address], [place], [address], 4 15:11:50 CT, abdomen + pelvis, w/wo contrast 2023 024 [facility], [address], [place], [address], 4 14:46:31 US, retroperit oneum, limited - Bilateral Kidney Ultra Sound 2017 019 [facility], [address], [place], [address], 0 05:03:01 US, retroperit oneum, limited 2017 018 [facility], [address], [place], [address], 8 16:10:42 Medication Orders None recorded. Patient TargetsNo targets recorded. Patient Instructions Encounter Date Encounter Id Patient Instructions Last Modified By Organization Details Last Modified Time 07/12/2017 [id number] I counseled the patient that she does not have any malignant appearing cysts. We will plan for follow-up in 6 months with renal ultrasound. We'll plan for renal mass protocol CT scan if there are significant changes on ultrasound follow-up. [email or web address] Not available 07/13/2017 06:37:45 02/14/2018 [id number] Renal cysts appear benign and stable [email or web address] Not available 02/22/2018 20:00:22 11/15/2023 [id number] learning about depression [email or web address] Not available 11/24/2023 08:05:59 Reason for Referral None Reported. Results Created Date Observation Date Name Description Value Unit Range Abnormal Flag Note LastModifiedBy Organization Detail LastModifiedTime 07/13/19 18 07/12/2017 urina lysis , dipst ick, auto Unknown Analyte Yellow Not Available [facility] [address], [place], [address], 07/12/2017 09:28:59 07/13/19 18 07/12/2017 urina lysis , dipst ick, auto Unknown Analyte Clear Not Available [facility] [address], [place], [address], 07/12/2017 09:28:59 07/13/19 18 07/12/2017 urina lysis , dipst ick, auto Unknown Analyte 1.015 Not Available [facility] [address], [place], [address], 07/12/2017 09:28:59 07/13/19 18 07/12/2017 urina lysis , dipst ick, auto Unknown Analyte 5.0 Not Available [facility] [address] [place] [address] [address], [place], [address], 07/12/2017 09:28:59 07/13/19 18 07/12/2017 urina lysis , dipst ick, auto Unknown Analyte Negati ve Not Available [facility] [address], [place], [address], 07/12/2017 09:28:59 07/13/19 18 07/12/2017 urina lysis , dipst ick, auto Unknown Analyte Negati ve Not Available [facility] [address], [place], [address], 07/12/2017 09:28:59 07/13/19 18 07/12/2017 urina lysis , dipst ick, auto Unknown Analyte Negtiv e Not Available [facility] [address], [place], [address], 07/12/2017 09:28:59 07/13/19 18 07/12/2017 urina lysis , dipst ick, auto Unknown Analyte Normal Not Available [facility] [address], [place], [address], 07/12/2017 09:28:59 07/13/19 18 07/12/2017 urina lysis , dipst ick, auto Unknown Analyte Negati ve Not Available [facility] [address], [place], [address], 07/12/2017 09:28:59 07/13/19 18 07/12/2017 urina lysis , dipst ick, auto Unknown Analyte Normal Not Available [facility] [address], [place], [address], 07/12/2017 09:28:59 07/13/19 18 07/12/2017 urina lysis , dipst ick, auto Unknown Analyte Negati ve Not Available [facility] [address], [place], [address], 07/12/2017 09:28:59 07/13/19 18 07/12/2017 urina lysis , dipst ick, auto Unknown Analyte Negati ve Not Available [facility] [address], [place], [address], 07/12/2017 09:28:59 07/13/19 18 07/12/2017 urina lysis , dipst ick, auto Unknown Analyte Clean Catch Not Available [facility] [address], [place], [address], 07/12/2017 09:28:59 07/13/19 18 07/12/2017 urina lysis , dipst ick, auto Unknown Analyte Automa avery Not Available [facility] [address], [place], [address], 07/12/2017 09:28:59 02/15/20 18 02/14/2018 urina lysis , dipst ick, auto Unknown Analyte Yellow Not Available [facility] [address], [place], [address], 02/14/2018 12:19:32 02/15/20 18 02/14/2018 urina lysis , dipst ick, auto Unknown Analyte Clear Not Available [facility] [address], [place], [address], 02/14/2018 12:19:32 02/15/20 18 02/14/2018 urina lysis , dipst ick, auto Unknown Analyte 1.010 Not Available [facility] [address], [place], [address], 02/14/2018 12:19:32 02/15/20 18 02/14/2018 urina lysis , dipst ick, auto Unknown Analyte 1.003 - 1.035 Not Available [facility] [address], [place], [address], 02/14/2018 12:19:32 02/15/20 18 02/14/2018 urina lysis , dipst ick, auto Unknown Analyte 8.0 Not Available [facility] [address], [place], [address], 02/14/2018 12:19:32 02/15/20 18 02/14/2018 urina lysis , dipst ick, auto Unknown Analyte 5.0 - 8.0 Not Available [facility] [address], [place], [address], 02/14/2018 12:19:32 02/15/20 18 02/14/2018 urina lysis , dipst ick, auto Unknown Analyte Negati ve Not Available [facility] [address], [place], [address], 02/14/2018 12:19:32 02/15/20 18 02/14/2018 urina lysis , dipst ick, auto Unknown Analyte Negati ve Not Available [facility] [address], [place], [address], 02/14/2018 12:19:32 02/15/20 18 02/14/2018 urina lysis , dipst ick, auto Unknown Analyte Negati ve Not Available [facility] [address], [place], [address], 02/14/2018 12:19:32 02/15/20 18 02/14/2018 urina lysis , dipst ick, auto Unknown Analyte Negati ve Not Available [facility] [address], [place], [address], 02/14/2018 12:19:32 02/15/20 18 02/14/2018 urina lysis , dipst ick, auto Unknown Analyte Negtiv e Not Available [facility] [address], [place], [address], 02/14/2018 12:19:32 02/15/20 18 02/14/2018 urina lysis , dipst ick, auto Unknown Analyte Negati ve - Trace Not Available [facility] [address], [place], [address], 02/14/2018 12:19:32 02/15/20 18 02/14/2018 urina lysis , dipst ick, auto Unknown Analyte Normal Not Available [facility] [address], [place], [address], 02/14/2018 12:19:32 02/15/20 18 02/14/2018 urina lysis , dipst ick, auto Unknown Analyte Normal Not Available [facility] [address], [place], [address], 02/14/2018 12:19:32 02/15/20 18 02/14/2018 urina lysis , dipst ick, auto Unknown Analyte Negati ve Not Available [facility] [address], [place], [address], 02/14/2018 12:19:32 02/15/20 18 02/14/2018 urina lysis , dipst ick, auto Unknown Analyte Negati ve Not Available [facility] [address], [place], [address], 02/14/2018 12:19:32 02/15/20 18 02/14/2018 urina lysis , dipst ick, auto Unknown Analyte Normal Not Available [facility] [address], [place], [address], 02/14/2018 12:19:32 02/15/20 18 02/14/2018 urina lysis , dipst ick, auto Unknown Analyte Normal - 1mg/dl Not Available [facility] [address], [place], [address], 02/14/2018 12:19:32 02/15/20 18 02/14/2018 urina lysis , dipst ick, auto Unknown Analyte Negati ve Not Available [facility] [address], [place], [address], 02/14/2018 12:19:32 02/15/20 18 02/14/2018 urina lysis , dipst ick, auto Unknown Analyte Negati ve Not Available [facility] [address], [place], [address], 02/14/2018 12:19:32 02/15/20 18 02/14/2018 urina lysis , dipst ick, auto Unknown Analyte Negati ve Not Available [facility] [address], [place], [address], 02/14/2018 12:19:32 02/15/20 18 02/14/2018 urina lysis , dipst ick, auto Unknown Analyte Negati ve Not Available [facility] [address], [place], [address], 02/14/2018 12:19:32 02/15/20 18 02/14/2018 urina lysis , dipst ick, auto Unknown Analyte Clean Catch Not Available [facility] [address], [place], [address], 02/14/2018 12:19:32 02/15/20 18 02/14/2018 urina lysis , dipst ick, auto Unknown Analyte Automa avery Not Available [facility] [address], [place], [address], 02/14/2018 12:19:32 05/12/19 24 05/12/2023 urina lysis panel , auto Unknown Analyte Clean Catch Not Available [facility] [address] [place] [address], [address], 05/12/2023 15:17:03 05/12/19 24 05/12/2023 urina lysis panel , auto Unknown Analyte Yellow Not Available [facility] [address] [place] [address], [address], 05/12/2023 15:17:03 05/12/19 24 05/12/2023 urina lysis panel , auto Unknown Analyte Clear Not Available [facility] [address] [place] [address], [address], 05/12/2023 15:17:03 05/12/19 24 05/12/2023 urina lysis panel , auto Unknown Analyte 1.[address] [facility] [address] [place] [address], [address], 05/12/2023 15:17:03 05/12/19 24 05/12/2023 urina lysis panel , auto Unknown Analyte 1.003- 1.035 Not Available [facility] [address] [place] [address], [address], 05/12/2023 15:17:03 05/12/19 24 05/12/2023 urina lysis panel , auto Unknown Analyte 7.[address] [facility] [address] [place] [address], [place], [address], 05/12/2023 15:17:03 05/12/19 24 05/12/2023 urina lysis panel , auto Unknown Analyte 5.0-8. 0 Not Available [facility] [address] [place] [address], [address], 05/12/2023 15:17:03 05/12/19 24 05/12/2023 urina lysis panel , auto Unknown Analyte Negati ve Not Available [facility] [address] [place] [address], [address], 05/12/2023 15:17:03 05/12/19 24 05/12/2023 urina lysis panel , auto Unknown Analyte Negati ve Not Available [facility] [address] [place] [address], [address], 05/12/2023 15:17:03 05/12/19 24 05/12/2023 urina lysis panel , auto Unknown Analyte Negati ve Not Available [facility] [address] [place] [address], [address], 05/12/2023 15:17:03 05/12/19 24 05/12/2023 urina lysis panel , auto Unknown Analyte Negati ve Not Available [facility] [address] [place] [address], [address], 05/12/2023 15:17:03 05/12/19 24 05/12/2023 urina lysis panel , auto Unknown Analyte Negati ve Not Available [facility] [address] [place] [address], [address], 05/12/2023 15:17:03 05/12/19 24 05/12/2023 urina lysis panel , auto Unknown Analyte Negati ve Not Available [facility] [address] [place] [address], [place], [address], 05/12/2023 15:17:03 05/12/19 24 05/12/2023 urina lysis panel , auto Unknown Analyte Normal Not Available [facility] [address] [place] [address], [address], 05/12/2023 15:17:03 05/12/19 24 05/12/2023 urina lysis panel , auto Unknown Analyte Normal Not Available [facility] [address] [place] [address], [address], 05/12/2023 15:17:03 05/12/19 24 05/12/2023 urina lysis panel , auto Unknown Analyte Negati ve Not Available [facility] [address] [place] [address], [address], 05/12/2023 15:17:03 05/12/19 24 05/12/2023 urina lysis panel , auto Unknown Analyte Negati ve Not Available [facility] [address] [place] [address], [address], 05/12/2023 15:17:03 05/12/19 24 05/12/2023 urina lysis panel , auto Unknown Analyte Normal Not Available [facility] [address] [place] [address], [address], 05/12/2023 15:17:03 05/12/19 24 05/12/2023 urina lysis panel , auto Unknown Analyte Normal 1 mg/dl Not Available [facility] [address] [place] [address], [address], 05/12/2023 15:17:03 05/12/19 24 05/12/2023 urina lysis panel , auto Unknown Analyte Negati ve Not Available [facility] [address] [address], [place], [address], 05/12/2023 15:17:03 05/12/19 24 05/12/2023 urina lysis panel , auto Unknown Analyte Negati ve Not Available [facility] [address] [address], [place], [address], 05/12/2023 15:17:03 05/12/19 24 05/12/2023 urina lysis panel , auto Unknown Analyte Negati ve Not Available [facility] [address] [address], [place], [address], 05/12/2023 15:17:03 05/12/19 24 05/12/2023 urina lysis panel , auto Unknown Analyte Negati ve Not Available [facility] [address] [address], [place], [address], 05/12/2023 15:17:03 11/15/19 24 11/15/2023 urina lysis panel , auto Unknown Analyte Clean Catch Not Available [facility] [address] [place] [address] [address], [place], [address], 11/15/2023 11:49:15 11/15/19 24 11/15/2023 urina lysis panel , auto Unknown Analyte Yellow Not Available [facility] [address], [place], [address], 11/15/2023 11:49:15 11/15/19 24 11/15/2023 urina lysis panel , auto Unknown Analyte Clear Not Available [facility] [address], [place], [address], 11/15/2023 11:49:15 11/15/19 24 11/15/2023 urina lysis panel , auto Unknown Analyte 1.005 Not Available [facility] [address], [place], [address], 11/15/2023 11:49:15 11/15/19 24 11/15/2023 urina lysis panel , auto Unknown Analyte 1.003- 1.035 Not Available [facility] [address], [place], [address], 11/15/2023 11:49:15 11/15/19 24 11/15/2023 urina lysis panel , auto Unknown Analyte 5.0 Not Available [facility] [address], [place], [address], 11/15/2023 11:49:15 11/15/19 24 11/15/2023 urina lysis panel , auto Unknown Analyte 5.0-8. 0 Not Available [facility] [address], [place], [address], 11/15/2023 11:49:15 11/15/19 24 11/15/2023 urina lysis panel , auto Unknown Analyte 25 Carlos/ul Trace Not Available [facility] [address], [place], [address], 11/15/2023 11:49:15 11/15/19 24 11/15/2023 urina lysis panel , auto Unknown Analyte Negati ve Not Available [facility] [address], [place], [address], 11/15/2023 11:49:15 11/15/19 24 11/15/2023 urina lysis panel , auto Unknown Analyte Negati ve Not Available [facility] [address], [place], [address], 11/15/2023 11:49:15 11/15/19 24 11/15/2023 urina lysis panel , auto Unknown Analyte Negati ve Not Available [facility] [address], [place], [address], 11/15/2023 11:49:15 11/15/19 24 11/15/2023 urina lysis panel , auto Unknown Analyte Negati ve Not Available [facility] [address], [place], [address], 11/15/2023 11:49:15 11/15/19 24 11/15/2023 urina lysis panel , auto Unknown Analyte Negati ve Not Available [facility] [address], [place], [address], 11/15/2023 11:49:15 11/15/19 24 11/15/2023 urina lysis panel , auto Unknown Analyte Normal Not Available [facility] [address], [place], [address], 11/15/2023 11:49:15 11/15/19 24 11/15/2023 urina lysis panel , auto Unknown Analyte Normal Not Available [facility] [address], [place], [address], 11/15/2023 11:49:15 11/15/19 24 11/15/2023 urina lysis panel , auto Unknown Analyte Negati ve Not Available [facility] [address], [place], [address], 11/15/2023 11:49:15 11/15/19 24 11/15/2023 urina lysis panel , auto Unknown Analyte Negati ve Not Available [facility] [address], [place], [address], 11/15/2023 11:49:15 11/15/19 24 11/15/2023 urina lysis panel , auto Unknown Analyte Normal Not Available [facility] [address], [place], [address], 11/15/2023 11:49:15 11/15/19 24 11/15/2023 urina lysis panel , auto Unknown Analyte Normal 1 mg/dl Not Available [facility] [address], [place], [address], 11/15/2023 11:49:15 11/15/19 24 11/15/2023 urina lysis panel , auto Unknown Analyte Negati ve Not Available [facility] [address], [place], [address], 11/15/2023 11:49:15 11/15/19 24 11/15/2023 urina lysis panel , auto Unknown Analyte Negati ve Not Available [facility] [address], [place], [address], 11/15/2023 11:49:15 11/15/19 24 11/15/2023 urina lysis panel , auto Unknown Analyte Negati ve Not Available [facility] [address], [place], [address], 11/15/2023 11:49:15 11/15/19 24 11/15/2023 urina lysis panel , auto Unknown Analyte Negati ve Not Available [facility] [address], [place] [place], [address], 11/15/2023 11:49:15 07/01/19 18 06/29/2017 US, retro perit oneum , limit ed No observ ation record ed. [facility] [address], [place], [address], 07/13/2017 06:38:55 07/09/19 18 07/07/2017 CT, abdom en, w/wo contr ast No observ ation record ed. [facility] [address], [place], [address], 07/13/2017 06:38:54 02/09/20 18 02/08/2018 US, retro perit oneum , limit ed [facility] ton [facility] [address] [place] [address] Patien t Name: SOFIA toney : 943 Patikamran t 4 Orderi [facility] er: SHIRLEY MERA JR EXAM DATE: 2017 [...] Johnnie Hawkins MD on 2017 4:05 PM [facility] [address] [place], [address], 02/22/2018 19:58:21 04/07/19 24 02/09/2023 US, renal No observ ation record ed. [facility] Not Available 2023 13:32:35 05/12/19 24 05/12/2023 CT, abdom en + pelvi s, w/wo contr ast [place] [facility] [address] [facility] [place] [facility] [address] Patien t Name: SOFIA toney : 943 Conner toney 4 Orderi Liam er: SHIRLEY MERA EXAM DATE: 2023 EXAM: CT ABD/PE LVIS [...] 350 (1 x [address] [facility] [address]20- 1414-9 1). 0 was wasted and discar [...] Johnnie Hawkins MD on 024 2:41 PM michelle [facility] [address] [facility], [place], [address], 05/14/2023 16:38:38 11/30/19 24 11/30/2023 US, retro perit oneum , limit ed No observ ation record ed. michelle [facility] (Med Record) [address], [place], [address], 12/01/2023 09:40:10 06/08/19 25 06/06/2024 US, retro perit oneum , limit ed No observ ation record ed. [email or web address] Not Available 05/30 18:13:29 Result Notes None recorded. 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 Procedures Surgical History Date Name Laterality Status Provider Name and Address Organization Details Recorded Time Cystoscopy - female completed SHIRLEY PARR JR, MD [address] [place] [address], [address], [facility] 05/12/2023 13:33:18 repair of shoulder completed [facility] 03/31/2023 10:33:39 maintenance of gastric band completed [facility] 03/31/2023 10:34:53 operative procedure on knee completed [facility] 03/31/2023 10:37:07 Imaging Results None recorded. Procedure Notes None recorded. Medical Equipment None Reported. Allergies Allergen ID Allergen Name Allergen Category Reaction Reaction Severity Criticality Documentation Date Start Date Code Code System Note Provider Name and Address Organization Details Recorded Time 18680930 Product containin g penicilli n (product) medicatio n Not available Not available Not available 01/23/20162012 86156 8001 SNOMED Comme nt: Creat ed By: Dayna Escudero ;Crea avery Date: 2012 10:39 :32 AM; Not Available [facility] 6 11:56:53 792701 etodolac medicatio n Not available Not available Not available 01/23/20162012 36759 RxNorm Comme nt: Creat ed By: Dayna Escudero ;Crea avery Date: 2012 10:40 :22 AM; Not Available [facility] 6 11:56:53 163103 Bextra medicatio n Not available Not available Not available 01/23/20162012 96127 0 RxNorm Comme nt: Creat ed By: Dayna Escudero ;Meira avery Date: 2012 10:40 :41 AM; Not Available [facility] 6 11:56:53 856154 Aleve medicatio n Not available Not available Not available 01/23/20162012 35923 1 RxNorm Comme nt: Creat ed By: Dayna Escudero ;Meira avery Date: 2012 10:40 :02 AM; Not Available [facility] 6 11:56:53 471135 Substance with sulfonami de structure and antibacte rial mechanism of action (substanc e) medicatio n Not available Not available Not available 01/23/20162012 47070 8003 SNOMED Comme nt: Creat ed By: Dayna Escudero ;Crea avery Date: 2012 10:41 :00 AM; Not Available [facility] 6 11:56:53 Medications Name Sig Start [...] Available Not Available Nasonex 50 mcg/actuati on Barton Daily active Instructio ns: each nostril;Fr equency: [...] Lovaza 1 gram capsule Daily active Frequency: daily;Medi cation Descriptio n: omega-3 polyunsatu rated fatty acids; Dosage:4; Route:oral ; refills:0 Not Available Not Available Not Available levocetiriz ine 5 mg tablet Daily active Frequency: daily;Medi cation Descriptio n: levocetiri zine; Dosage:1; Route:oral ; refills:0 Not Available Not Available Not Available Colcrys 0.6 mg tablet Daily active Frequency: daily;Medi cation Descriptio n: colchicine ; Dosage:1; Route:oral ; refills:0 Not Available Not Available Not Available Vitals Date Recorded Body height Body mass index (BMI) Body weight Provider Name and Address Organization Details Last Updated DateTime 03/31/2023 149.86 cm 40.4 kg/m2 84673.47 g Adriana Looney [facility] 03/31/2023 10:29:44 Date Recorded Body height Body mass index (BMI) Body weight Heart rate Systolic blood pressure Diastolic blood pressure Provider Name and Address Organization Details Last Updated DateTime 8 149.86 cm 40.6 kg/m2 73425.0 7 g 80 /min 136 mm[Hg] 83 mm[Hg] Nasima Hillman [facility] 8 09:03:19 Date Recorded Body height Body mass index (BMI) Body weight Provider Name and Address Organization Details Last Updated DateTime 11/15/2023 149.86 cm 40.4 kg/m2 76853.47 g Adriana Looney [facility] 11/15/2023 11:37:28 Date Recorded Body height Body mass index (BMI) Body weight Heart rate Systolic blood pressure Diastolic blood pressure Provider Name and Address Organization Details Last Updated DateTime 8 149.86 cm 42.4 kg/m2 98502.4 g 92 /min 124 mm[Hg] 75 mm[Hg] Tika Toney [facility] 8 12:18:54 Social History Question Answer Notes LastModified by Organizat ion Details LastModified Time Tobacco Smoking Status Never Smoker Tika Toney [facility] 06/24/2017 11:30:13 Marital Status [email or web address] Informatio n not available 06/24/2017 What Was The Date Of Your Most Recent Tobacco Screening? 11/15/2023 [email or web address] Information not available 11/15/2023 Sex: Unknown Functional Status Question Answer Note LastModified by Organization D etails LastModified Time What is your level of alcohol consumption? None Information not available 06/24/2017 Mental Status None recorded. Family History Relationship Description Onset Age of this Age Resolved Age Notes LastModified by Organization Details LastModified Time Father Family history of malignant neoplasm [email or web address] Not available 06/24 11:30:09 Medical History Condition Response Allergies/Hayfever Y Anemia Y Arthritis Y Acid Reflux (GERD) Y Asthma Y Sleep Apnea Y High Cholesterol Y Thyroid Disorder Y Hypertension Y Gynecological HistoryNo gynecological history recorded. Obstetrics History GPAL:G 0 P 0 0 0 0 Past Encounters Encounter ID Performer Location Encounter Start Date Encounter Closed Date Diagnosis/Indication Diagnosis SNOMED-CT Code Diagnosis ICD10 Code Diagnosis Note [id number] SHIRLEY PARR JR, MD [facility] [address] [place] [address] 06/24/2017 10:49:15 06/24/2017 13:02:56 Cyst of kidney 323810898 N28.1 [id number] MD ADALID MARLEY JR, [facility] [address] [place] [id number] 07/12/2017 08:33:35 07/12/2017 11:53:10 Acquired renal cystic disease [id number] N28.1 [id number] SHIRLEY PARR JR, MD [facility] [address] [place] [address] 02/14/2018 11:08:51 02/14/2018 12:25:49 Acquired renal cystic disease 487298803 N28.1 [id number] SHIRLEY PARR JR, MD [address] [place] [id number] 03/31/2023 09:48:35 04/01/2023 05:23:51 Earnest hematuria 664845397 R31.0 Acquired r enal cystic disease 609388262 N28.1 [id number] SHIRLEY PARR JR, MD SURGERY SCHEDULE [address] [place] [address] 05/12/2023 12:06:17 05/12/2023 12:07:10 Earnest hematuria 281663964 R31.0 Acquired r enal cystic disease 803025668 N28.1 [id number] SHIRLEY PARR JR, MD [facility] [address] [place] [address] 11/15/2023 11:10:42 11/15/2023 12:19:04 Acquired renal cystic disease 628458561 N28.1 Health Concerns Section Related Observation LastModified by Organization Detai ls LastModified Time None Recorded Concern Status LastModified by Organization Details LastModified Time None Recorded Advance Directives Directive None Recorded Payers Insurance Date Sequence Insurance Name Policy Number Policy Lucero Covered Member ID Lucero Member ID Guarantor Name 06/30/2024 1 [facility] (MEDICARE REPLACEMENT/A DVANTAGE - PPO) [id number] Sofia Barlow [id number] Sofia Barlow Notes Date Note Type Note [...] care physician. MD Praveen [place], [address], [facility] 07/13/2017 06:39:02 02/14/2018 text/html patient is in to day for follow-up of renal cysts/renal mass. She brings a copy of her CT scan and for review. 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 renal mass protocol CT scan was performed July 07, 2017. Renal US 02/08/2018 shows stable simple cysts, right kidney. MD Praveen MARLEY [place], [address], [facility] 02/22/2018 20:01:55 03/31/2023 text/html patient is in [...] of smoking. She denies occupational exposures. [place], [address], [facility] 03/31/2023 18:16:51 05/12/2023 text/html patient is in [...] denies occupational exposures. SHIRLEY PARR JR, MD [address] [place] [address], [address], [facility] 05/12/2023 13:37:46 11/15/2023 text/html patient is in [...] simple renal cysts. SHIRLEY PARR JR, MD [address] [place] [address], [phone], [facility] 11/24/2023 08:06:03 OBGyn Episode No OBEpisode recorded.
--- OUTSIDE RECORDS SUMMARY | 2024-08-09 13:23 | XMS_ITS | Encounter Summary ---
Author Organization [employer] Address [address] [place] [address] Care Team Providers Care Proofreader Name Role Phone Unavailable Primary Care Provider Unavailabl e Encounter Details Date Type Department Care Team (Late st Contact Info) Description 08/22/2020 Transcribed Document [facility] [place] [address] ProviderMariela MD [facility] [place] [address] Social History Tobacco Use Types [...] Conversion Note - Historical ProviderMD - 08/22/2020 2:00 AM CDT Press Set Up Person Details Entered On: 08/22/2020 0:01 EDT Performed On: 08/22/2020 2:00 EDT by Caitlyn Fallon Rn Order [...] Crushed/Liquid : No Caitlyn Fallon Rn - 08/22/2020 0:01 EDT documented in this encounter Plan of Treatment Not on file documented as of this encounter Visit Diagnoses Not on filedocumented in this encounter
--- OUTSIDE RECORDS SUMMARY | 2024-08-09 13:23 | XMS_ITS | Encounter Summary ---
Author Organization [employer] Address [address] [place] [address] Care Team Providers Care Physician Industrial Name Role Phone Unavailable Primary Care Provider Unavailabl e Encounter Details Date Type Department Care Team (Late st Contact Info) Description 08/29/2018 Transcribed Document [facility] [address] [place] [address] ProviderMariela MD [address] [place], [place] [id number] Social History Tobacco Use Types Packs/Day Years [...] Conversion Note - Historical ProviderMD - 08/29/2018 5:00 AM CDT Chart Check - Review Order Profile Entered On: 08/29/2018 5:49 EDT Performed On: 08/29/2018 5:00 EDT by Mily Dickinson Rn Chart Check Powerplans Initiated/Discontinued as Appropriate : Yes All Active Orders Reviewed : Yes Mily Dickinson Rn - 08/29/2018 5:49 EDT documented in this encounter Plan of Treatment Not on file documented as of this encounter Visit Diagnoses Not on filedocumented in this encounter
--- OUTSIDE RECORDS SUMMARY | 2024-08-09 13:23 | XMS_ITS | Encounter Summary ---
Author Organization [employer] Address [address] [place] [address] Care Team Providers Care Technician Preventative Medicine Name Role Phone Unavailable Primary Care Provider Unavailabl e Encounter Details Date Type Department Care Team (Late st Contact Info) Description 06/23/2019 Transcribed Document [facility] Family Medicine [address] [place] [address] ProviderMariela MD [address] [place], [place] [address] Social History Tobacco Use Types Packs/Day Years [...] Note - Historical ProviderMD - 06/23/2019 5:00 AM CDT Chart Check - Review Order Profile Entered On: 06/23/2019 4:17 EDT Performed On: 06/23/2019 5:00 EDT by Nemo Macario, RN Chart Check Powerplans Initiated/Discontinued as Appropriate : Yes All Active Orders Reviewed : Yes Nemo Macario, RN - 06/23/2019 4:17 EDT Electronically signed by Maureen Cornejo Conversion After School Program Coordinator Cerner at 06/16/2022 8:27 PM CDT documented in this encounter Plan of Treatment Not on file documented as of this encounter Visit Diagnoses Not on filedocumented in this encounter
--- OUTSIDE RECORDS SUMMARY | 2024-08-09 13:23 | XMS_ITS | Encounter Summary ---
Author Organization [employer] Address [address] [place] [address] Care Team Providers Care Inside Sales Account Executive Name Role Phone Unavailable Primary Care Provider Unavailabl e Encounter Details Date Type Department Care Team (Late st Contact Info) Description 06/23/2019 Transcribed Document [facility] [address] ProviderMariela [place] [address] Social History Tobacco Use Types [...] Conversion Note - Historical ProviderMD - 06/23/2019 11:41 AM CDT On Going Discharge Planning Entered On: 06/23/2019 11:45 EDT Performed On: 06/23/2019 11:41 EDT by DEBORAH CAMPOS RN-Diesel Truck TechnicianClassroom Instructional Aide Progress Note Discharge Arrangements : Patient Post-Acute Information Patient Name: SOFIA GILL Gender: Female : 44 Age: 79 Years No Post-Acute Placement(s) Listed No Post-Acute Service(s) Listed No Curaspan Referral(s) Listed DEBORAH CAMPOS RN-Diesel Truck Technician - 06/23/2019 17:10 EDT Barriers to Discharge Identified : Clinical Condition of Patient, Follow-Up appointments needed Barriers to Discharge Unresolved : Clinical Condition of Patient, Follow-Up appointments needed Patient Offered Choice/Affiliations Explained : No List/Info Provided Pt/Fam/Support Person : Other: N/A Is the Patient Meeting Medical Necessity : Yes Discharge Plan Comment : MD HAS NOT ROUNDED ON THIS PT TODAY..STEPHANIE Did you Attend Multidisciplinary Rounds? : No DEBORAH CAMPOS RN-Diesel Truck Technician - 06/23/2019 11:41 EDT Narrative Progress Note Narrative Progress Note : RECEIVED CALL FROM [facility] WITH [facility]..PATIENT HAS BEEN ACCEPTED AND THEY WILL HAVE A BED SOMETIME NEXT WEEK..CM WILL CONTINUE TO FOLLOW AND INFORM DR DRIVER OF THE ABOVE..LM SPOKE WITH PT AT BEDSIDE AND SHE IS AWARE THAT L-TACH HAS STARTED A PRECERT AND HOPEFULLY WILL HAVE BED AVAILABLE ON WEDNESDAY PENDING AUTHORIZATION..DR DRIVER AWARE.. Historical Progress Note : [facility]..........MIKE Adam RN-Diesel Truck Technician - 06/21/19 16:57:54 Was planning for AKA, now patient will undergo a total joint revision with I&D. 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 Surgery scheduled for today................MIKE Adam RN-Diesel Truck Technician - 06/21/19 10:06:05 No MDR this AM with provider. Patient with low-grade fever this AM and throughout the night. LAKA was rescheduled for 06/20 for this reason. CM will continue to follow. Halima Tripathi RN-PERSONAL FINANCE INSTRUCTOR - 06/20/19 11:50:51 Patient becoming more agitated and confused, refusing to wear oxygen. Patient now on CPAP, WBC increased, BC x2 positive for group b Strep. Dr Saenz to perform AKA tomorrow morning. Will continue to follow..............MIKE Adam RN-Diesel Truck Technician - 06/19/19 11:35:19 DEBORAH CAMPOS RN-Diesel Truck Technician - 06/23/2019 17:10 EDT Electronically signed by Chantal [facility] Conversion Plan Rep Cerner at 06/16/2022 8:16 PM CDT documented in this encounter Plan of Treatment Not on file documented as of this encounter Visit Diagnoses Not on filedocumented in this encounter
--- OUTSIDE RECORDS SUMMARY | 2024-08-09 13:23 | XMS_ITS | Encounter Summary ---
Author Organization [employer] Address [address] [place] [address] Care Team Providers Care Metal Bumper Name Role Phone Unavailable Primary Care Provider Unavailabl e Encounter Details Date Type Department Care Team (Late st Contact Info) Description 06/23/2019 Transcribed Document [facility] Family Medicine [address] [place] [address] ProviderMariela MD [address] [place], [place] [phone] Social History Tobacco Use Types Packs/Day Years [...] Conversion Note - Historical ProviderMD - 06/23/2019 3:04 PM CDT Event Note Entered On: 06/23/2019 15:05 EDT Performed On: 06/23/2019 15:04 EDT by Vidhi Bailey RN Event Note Description of Event : Notified Dr. Saenz about X ray results. Vidhi Bailey, RN - 06/23/2019 15:04 EDT documented in this encounter Plan of Treatment Not on file documented as of this encounter Visit Diagnoses Not on filedocumented in this encounter
--- OUTSIDE RECORDS SUMMARY | 2024-08-09 13:23 | XMS_ITS | Encounter Summary ---
Author Organization [employer] Address [address] [place] [address] Care Team Providers Care Family Development Extension Specialist Name Role Phone Unavailable Primary Care Provider Unavailabl e Encounter Details Date Type Department Care Team (Late st Contact Info) Description 08/29/2018 Transcribed Document [facility] [place] [address] [place] [address] ProviderMariela MD [address] [place] [address] Social History Tobacco Use Types Packs/Day Years [...] Conversion Note - Historical ProviderMD - 08/29/2018 2:00 AM CDT School Photographer Details Entered On: 08/29/2018 5:50 EDT Performed On: 08/29/2018 2:00 EDT by Mily Dickinson Rn Order Details Transport Mode Order Detail : Wheelchair Isolation Precautions Order Detail : Standard Precautions Order Detail : N/A IV Order Detail : 1 Oxygen Order Detail : 0 Nurse Collect Order Detail : 0 Lift/Transfer : Moderate assist Central Line Order Detail : No Room Service : Appropriate Arterial Line : No Mily Dickinson Rn - 08/29/2018 5:49 EDT documented in this encounter Plan of Treatment Not on file documented as of this encounter Visit Diagnoses Not on filedocumented in this encounter
--- OUTSIDE RECORDS SUMMARY | 2024-08-09 13:23 | XMS_ITS | Encounter Summary ---
Author Organization [employer] Address [address] [place] [address] Care Team Providers Care Solutions Sales Executive Name Role Phone Unavailable Primary Care Provider Unavailabl e Encounter Details Date Type Department Care Team (Late st Contact Info) Description 07/18/2019 Transcribed Document [facility] [place] [facility] [place] [address] ProviderMariela MD [address] [place] [address] Social History Tobacco Use Types Packs/Day Years [...] Conversion Note - Historical ProviderMD - 07/18/2019 1:15 PM CDT Attempt to Treat, PT Entered On: 07/18/2019 15:09 EDT Performed On: 07/18/2019 13:15 EDT by HOWIE WETZEL PTA Attempt to Treat Unable to Treat Due To : Patient Unavailable Inability to Treat Comment : pt leaving for appointment with Dr Saenz, will try back as time permits Notification : HOWIE Fournier PTA - 07/18/2019 15:07 EDT documented in this encounter Plan of Treatment Not on file documented as of this encounter Visit Diagnoses Not on filedocumented in this encounter
--- OUTSIDE RECORDS SUMMARY | 2024-08-09 13:23 | XMS_ITS | Encounter Summary ---
Author Organization [employer] Address [address] [place] [address] Care Team Providers Care Welder Tech Name Role Phone Unavailable Primary Care Provider Unavailabl e Encounter Details Date Type Department Care Team (Late st Contact Info) Description 08/22/2020 Transcribed Document [facility] [place] Family Medicine [address] [place] [address] ProviderMraiela MD [address] [place], [place] [id number] Social History Tobacco Use Types Packs/Day Years [...] Note - Historical ProviderMD - 08/22/2020 5:00 PM CDT Chart Check - Review Order Profile Entered On: 08/22/2020 18:40 EDT Performed On: 08/22/2020 17:00 EDT by Didi Villegas, RN Chart Check Powerplans Initiated/Discontinued as Appropriate : Yes All Active Orders Reviewed : Yes Didi Villegas, RN - 08/22/2020 18:40 EDT Electronically signed by Chantal [facility] Conversion Director Financial Services Cerner at 06/16/2022 8:18 PM CDT documented in this encounter Plan of Treatment Not on file documented as of this encounter Visit Diagnoses Not on filedocumented in this encounter
--- OUTSIDE RECORDS SUMMARY | 2024-08-09 13:23 | XMS_ITS | Encounter Summary ---
Author Organization [employer] Address [address] [place] [address] Care Team Providers Care Sound Effects Manager Name Role Phone Unavailable Primary Care Provider Unavailabl e Encounter Details Date Type Department Care Team (Late st Contact Info) Description 08/29/2018 Transcribed Document [facility] Family Medicine [facility] [place] [address] ProviderMariela MD [facility] [address] Social History Tobacco Use Types [...] Conversion Note - Historical ProviderMD - 08/29/2018 8:26 AM CDT On Going Discharge Planning Entered On: 08/29/2018 8:27 EDT Performed On: 08/29/2018 8:26 EDT by MARY MCGRAW Care Management-Food Safety Manager Care Management Progress Note Discharge Arrangements : Patient Post-Acute Information Patient Name: SOFIA GILL Gender: Female : 44 Age: 78 Years No Post-Acute Placement(s) Listed No Post-Acute Service(s) Listed No Curaspan Referral(s) Listed Discharge Options Discussed with Patient : Home Health, Short term rehabilitation Barriers to Discharge Identified : Clinical Condition of Patient Barriers to Discharge Unresolved : Clinical Condition of Patient MARY MCGRWA Care Management-Food Safety Manager - 08/29/2018 8:26 EDT Narrative Progress Note Narrative Progress Note : updated clinical sent to Trevor Rosas, for precert MARY MCGRAW, Care Management-Food Safety Manager - 08/29/2018 8:26 EDT documented in this encounter Plan of Treatment Not on file documented as of this encounter Visit Diagnoses Not on filedocumented in this encounter
--- OUTSIDE RECORDS SUMMARY | 2024-08-09 13:23 | XMS_ITS | Encounter Summary ---
Author Organization [employer] Address [address] [place] [address] Care Team Providers Care Room Clerk Name Role Phone Unavailable Primary Care Provider Unavailabl e Encounter Details Date Type Department Care Team (Late st Contact Info) Description 07/19/2019 Transcribed Document [facility] [place] [facility] [place] [address] ProviderMariela MD [address] [place] [address] Social History Tobacco Use Types [...] 11:57 AM CDT Patient Education Materials Follows: Hypertension, Adult High blood pressure (hypertension) is [...] provider. This is important. Medicines ??? Take ivcn-xtl-abxcqcn and prescription medicines only as told by [...] 02/15/2006 Document Revised: 10/26/2018 Document Reviewed: 10/26/2018 [employer] Interactive Patient Education ? 2019 [employer] How to Use a Knee Immobilizer [...] 02/01/2017 Elsevier Interactive Patient Education ? 2019 [employer] documented in this encounter Plan of Treatment Not on file documented as of this encounter Visit Diagnoses Not on filedocumented in this encounter
--- OUTSIDE RECORDS SUMMARY | 2024-08-09 13:23 | XMS_ITS | Encounter Summary ---
Author Organization [employer] Address [address] [place] [address] Care Team Providers Care Plant Health Manager Name Role Phone Unavailable Primary Care Provider Unavailabl e Encounter Details Date Type Department Care Team (Late st Contact Info) Description 08/22/2020 Transcribed Document [facility] [place] [facility] [place] [address] ProviderMariela MD [facility] [place] [address] Social History Tobacco Use [...] Conversion Note - Historical ProviderMD - 08/22/2020 9:00 PM CDT Pain Assessment Entered On: 08/22/2020 23:24 EDT Performed On: 08/22/2020 22:23 EDT by Caitlyn Fallon Rn Intervention Information: acetaminophen Performed by Caitlyn Fallon Rn on 08/22/2020 21:23:00 EDT acetaminophen,1000mg Oral Pain Assessment Pain Assessment : Follow-up assessment Pain Scale Goal : 3 Pain Scale Used : 0-10 Scale Caitlyn Fallon Rn - 08/22/2020 23:23 EDT Pain Scale Intensity : 0 Caitlyn Fallon Rn - 08/22/2020 23:23 EDT Image 4 - Images currently included in the form version of this document have not been included in the text rendition version of the form. documented in this encounter Plan of Treatment Not on file documented as of this encounter Visit Diagnoses Not on filedocumented in this encounter
--- OUTSIDE RECORDS SUMMARY | 2024-08-09 13:23 | XMS_ITS | Encounter Summary ---
Author Organization [employer] Address [address] [place] [address] Care Team Providers Care Psychologist Clinical Name Role Phone Unavailable Primary Care Provider Unavailabl e Encounter Details Date Type Department Care Team (Late st Contact Info) Description 08/28/2018 Transcribed Document [facility] [place] [address] [place] [address] ProviderMariela MD [address] [place], [place] [id number] Social History Tobacco Use Types Packs/Day Years [...] Note - Historical ProviderMD - 08/28/2018 5:00 PM CDT Chart Check - Review Order Profile Entered On: 08/28/2018 17:07 EDT Performed On: 08/28/2018 17:00 EDT by Pina Littlejohn Rn Chart Check Powerplans Initiated/Discontinued as Appropriate : Yes All Active Orders Reviewed : Yes Pina Littlejohn Rn - 08/28/2018 17:07 EDT documented in this encounter Plan of Treatment Not on file documented as of this encounter Visit Diagnoses Not on filedocumented in this encounter
--- OUTSIDE RECORDS SUMMARY | 2024-08-09 13:23 | XMS_ITS | Encounter Summary ---
Author Organization [employer] Address [address] [place] [address] Care Team Providers Care Speech Assistant Name Role Phone Unavailable Primary Care Provider Unavailabl e Encounter Details Date Type Department Care Team (Late st Contact Info) Description 08/29/2018 Transcribed Document [facility] [place] [address] [place] [address] ProviderMariela MD [address] [place] [address] Social History Tobacco Use Types Packs/Day Years [...] Conversion Note - Historical ProviderMD - 08/29/2018 12:10 PM CDT Nursing Discharge Summary Entered On: 08/29/2018 12:12 EDT Performed On: 08/29/2018 12:10 EDT by Rosalva Herrera Rn Discharge Documentation Discharge To : Rehabilitation unit/facility Mode Of Departure, General Discharge : Private vehicle, Wheelchair Accompanied By, Discharge : Care provider Personal Belongings With Patient : Yes Pt's Own Supply of Medications Returned : Yes Discharge Instructions Reviewed With, Opportunity For Questions Given : Patient, Care provider Patient Education Completed : Yes Teaching Method : Demonstration, Explanation Teaching Evaluation : Verbalizes understanding Rosalva Herrera Rn - 08/29/2018 12:10 EDT documented in this encounter Plan of Treatment Not on file documented as of this encounter Visit Diagnoses Not on filedocumented in this encounter
--- OUTSIDE RECORDS SUMMARY | 2024-08-09 13:23 | XMS_ITS | Encounter Summary ---
Author Organization [employer] Address [address] [place] [address] Care Team Providers Care Interlocking Pavement Installer Name Role Phone Unavailable Primary Care Provider Unavailabl e Encounter Details Date Type Department Care Team (Late st Contact Info) Description 07/07/2019 Transcribed Document [facility] [address] [place] [address] Jordan Barahona MD [address] [place] [address] Social History Tobacco Use Types Packs/Day Years [...] Conversion Note - Jordan Barahona MD - 07/07/2019 2:02 PM EDT Patient: SOFIA GILL Age: 79 [...] overnight; doing well; walking with physical therapy ros see hpi Objective Vitals Signs (last [...] (JULY 06 07:00) DBP L 57 (JULY 06:00) L 48 (JULY 05 23:30) L 57 (JULY 06 07:00) MAP 67 (JULY 05 23:30) 67 (JULY 05 23:30) 73 (JULY 05 14:00) SpO2 95 (JULY 06:00) 95 (JULY 05 23:30) 100 (JULY 05:00) Physical Examination: Gen: Alert, arousable, pleasant HEENT: NC/AT, no ext oral lesions, no scleral icterus RESP: bilateral expansion GI: nondistended MS: 2+ edema bilaterally knees, righ tknee c/d/i, left knee in brace SKIN: No eruptions, lesions, or rashes, PICC in place NEURO: No focal deficits; walking with walker Labs:Labs (Last four charted values) WBC 6.3 (JULY [...] 1.9 (JULY 03) L 1.9 (JULY 02) Micro: [facility]: 06/15 [facility] Blood cultures positive for group B [...]
--- OUTSIDE RECORDS SUMMARY | 2024-08-09 13:23 | XMS_ITS | Encounter Summary ---
Author Organization [employer] Address [address] [place] [address] Care Team Providers Care Machine Dyer Name Role Phone Unavailable Primary Care Provider Unavailabl e Encounter Details Date Type Department Care Team (Late st Contact Info) Description 06/23/2019 Transcribed Document [facility] [place] [facility] [place] [address] ProviderMariela MD [address] [place] [address] Social History Tobacco Use Types Packs/Day Years [...] Conversion Note - Historical ProviderMD - 06/23/2019 2:00 AM CDT Experimental Preflight Mechanic Details Entered On: 06/23/2019 0:52 EDT Performed On: 06/23/2019 2:00 EDT by Nemo Macario, RN Order Details Transport Mode Order Detail : Bed (including specialty) Isolation Precautions Order Detail : Contact precautions Order Detail : N/A IV Order Detail : 1 Oxygen Order Detail : 1 Nurse Collect Order Detail : 0 Lift/Transfer : Moderate assist Central Line Order Detail : Yes Room Service : Not Appropriate Arterial Line : No Nemo Macario, RN - 06/23/2019 0:52 EDT documented in this encounter Plan of Treatment Not on file documented as of this encounter Visit Diagnoses Not on filedocumented in this encounter
--- OUTSIDE RECORDS SUMMARY | 2024-08-09 13:24 | XMS_ITS | Encounter Summary ---
Author Organization [employer] Address [address] [place] [address] Care Team Providers Care Senior Javascript Engineer Name Role Phone Unavailable Primary Care Provider Unavailabl e Encounter Details Date Type Department Care Team (Late st Contact Info) Description 06/16/[address] [facility] [place] [facility] [place] [address] ProviderMariela MD [address] [place] [address] Social History Tobacco Use Types Packs/Day [...] Min Conversion Note - Historical ProviderMD - 06/16/2019 9:25 PM CDT Pain Assessment Entered On: 06/18/2019 6:45 EDT Performed On: 06/18/2019 0:09 EDT by Ophelia Ling RN Intervention Information: acetaminophen-HYDROcodone Performed by Ophelia Ling RN on 06/17/2019 23:09:00 EDT acetaminophen-HYDROcodone,2Tab Oral,Pain (Severe 7-10) Pain Assessment Pain Assessment : Follow-up assessment Pain Scale Goal : 3 Pain Scale Used : 0-10 Scale Ophelia Ling RN - 06/18/2019 6:45 EDT Pain Scale Intensity : 0 Ophelia Ling RN - 06/18/2019 6:45 EDT Image 4 - Images currently included in the form version of this document have not been included in the text rendition version of the form. documented in this encounter Plan of Treatment Not on file documented as of this encounter Visit Diagnoses Not on filedocumented in this encounter
--- OUTSIDE RECORDS SUMMARY | 2024-08-09 13:24 | XMS_ITS | Clinical Summary ---
Author Organization [employer] Address [address] [place] [address] Care Team Providers Care Production Grader Name Role Phone Unavailable Primary Care Provider Unavailabl e Social History Tobacco Use Types Packs/Day Years Used Date Smoking Tobacco: Never Assessed Comments Unknown Sex and Gender Information Value Date Recorded Sex Assigned at Female 09/02/2021 8:57 PM CDT Legal Sex Female 6:58 PM CDT Gender Identity Female 09/02/2021 8:57 PM CDT Sexual Orientation Not on file Plan of Treatment Not on file
--- OUTSIDE RECORDS SUMMARY | 2024-08-09 13:24 | XMS_ITS | Encounter Summary ---
Author Organization [employer] Address [address] [place] [address] Care Team Providers Care Stock Shipper Name Role Phone Unavailable Primary Care Provider Unavailabl e Encounter Details Date Type Department Care Team (Late st Contact Info) Description 07/08/2019 Transcribed Document [facility] [place] Family Medicine [address] [place] [address] ProviderMariela MD [address] [place] [address] Social History Tobacco Use Types Packs/Day Years [...] Conversion Note - Historical ProviderMD - 07/08/2019 2:00 AM CDT Box Liner Details Entered On: 07/08/2019 3:22 EDT Performed On: 07/08/2019 2:00 EDT by Georgina Olivo RN Order Details Transport Mode Order Detail : Stretcher/Gurney Isolation Precautions Order Detail : Standard Precautions Order Detail : N/A Oxygen Order Detail : 0 Nurse Collect Order Detail : 1 Lift/Transfer : Moderate assist Central Line Order Detail : Yes Room Service : Appropriate Arterial Line : No Georgina Olivo RN - 07/08/2019 3:22 EDT Electronically signed by Maureen Cornejo Conversion Supervisor Electrolytic Tinning Cerner at 06/16/2022 8:06 PM CDT documented in this encounter Plan of Treatment Not on file documented as of this encounter Visit Diagnoses Not on filedocumented in this encounter
--- OUTSIDE RECORDS SUMMARY | 2024-08-09 13:24 | XMS_ITS | Encounter Summary ---
Author Organization [employer] Address [address] [place] [address] Care Team Providers Care Commercial Lines Underwriter Name Role Phone Unavailable Primary Care Provider Unavailabl e Encounter Details Date Type Department Care Team (Late st Contact Info) Description 07/13/2019 Transcribed Document [facility] [place] [address] [place] [address] ProviderMariela MD [address] [place] [id number] Social History Tobacco Use Types Packs/Day Years Used Date Smoking Tobacco: Never Assessed Comments Unknown Sex and Gender Information Value Date Recorded Sex Assigned at Female 09/02/2021 8:57 PM CDT Legal Sex Female 6:58 PM CDT Gender Identity Female 09/02/2021 8:57 PM CDT Sexual Orientation Not on file documented as of this encounter Miscellaneous Notes * Cerner Conversion Note - Historical ProviderMD - 07/13/2019 5:00 PM CDT Chart Check - Review Order Profile Entered On: 07/13/2019 17:29 EDT Performed On: 07/13/2019 17:00 EDT by Caitlyn Chauhan Rn Chart Check Powerplans Initiated/Discontinued as Appropriate : Yes All Active Orders Reviewed : Yes Caitlyn Chauhan Rn - 07/13/2019 17:29 EDT documented in this encounter Plan of Treatment Not on file documented as of this encounter Visit Diagnoses Not on filedocumented in this encounter
--- OUTSIDE RECORDS SUMMARY | 2024-08-09 13:24 | XMS_ITS | Encounter Summary ---
Author Organization [employer] Address [address] [place] [address] Care Team Providers Care Sales Account Specialist Name Role Phone Unavailable Primary Care Provider Unavailabl e Encounter Details Date Type Department Care Team (Late st Contact Info) Description 08/29/2018 Transcribed Document [facility] [place] [facility] [place] [address] ProviderMariela MD [facility] [address] Social History Tobacco Use Types [...] Note - Historical ProviderMD - 08/29/2018 5:00 PM CDT Discharge Summary, PT Entered On: 09/03/2018 10:00 EDT Performed On: 08/29/2018 17:00 EDT by CHAITANYA SIMON, PT Discharge Summary Reason for Discharge : Discharged from hospital Discharge Summary Comment, PT : At time of discharge from hospital to the [place], pt had met 0/2 acute care goals as she was discharged to rehab the same day as the PT evaluation. Pt was independent with bed mobility and transfers. CHAITANYA SIMON, PT - 09/03/2018 9:58 EDT Registered Dietitian Goals Other PT LTG Grid Goal #1 Goal #2 Goal #3 Goal #5 Other : Patient will ambulate at least 50 feet with RWx and no more than Alexandra without LOB or safety concerns to allow safe household or facility ambulation upon [facility]. Patient will participate with therex per TKA postop protocol to promote maximum ROM and strength for functional mobility upon inpatient DC. Patient will ascend/descend at least 3 steps with 1 rails PRN and no more than Alexandra and min VCs for safe entrance to home upon acute care DC, OR will verbalize understanding for curb/platform step navigation with RWx if DC to facility. Pt will participate in therapeutic exercise training and be issued a written HEP in order to increase strength for improved gait and provide carryover into the home environment Date to Meet : 08/29/2018 EDT 08/29/2018 EDT 08/29/2018 EDT 09/02/2018 EDT Goal Status : Goal met Goal met Discontinue Initial goal Date Met : 08/24/2018 EDT 08/25/2018 EDT Comment : Bleeding during first rep of knee flexion. Pt going to rehab CHAITANYA SIMON, PT - 09/03/2018 9:58 EDT CHAITANYA SIMON, PT - 09/03/2018 9:58 EDT CHAITANYA SIMON, PT - 09/03/2018 9:58 EDT CHAITANYA SIMON, PT - 09/03/2018 9:58 EDT Goal #6 Other : Pt will be instructed in The 4 keys to recovery (Gtz Rules), and be provided a written copy in order to maximize adherence to Dr. Saenz's post op knee protocol Date to Meet : 09/02/2018 EDT Goal Status : Initial goal Date Met : Comment : CHAITANYA SIMON, PT - 09/03/2018 9:58 EDT Electronically signed by Maureen Cornejo Conversion Day Habilitation Supervisor Cerner at 06/16/2022 8:22 PM CDT documented in this encounter Plan of Treatment Not on file documented as of this encounter Visit Diagnoses Not on filedocumented in this encounter
--- OUTSIDE RECORDS SUMMARY | 2024-08-09 13:24 | XMS_ITS | Encounter Summary ---
Author Organization [employer] Address [address] [place] [address] Care Team Providers Care Main Line Station Engineer Name Role Phone Unavailable Primary Care Provider Unavailabl e Encounter Details Date Type Department Care Team (Late st Contact Info) Description 07/13/2019 Transcribed Document [facility] [place] [facility] [place] [address] ProviderMariela MD [facility] [place] [address] Social History Tobacco Use Types [...] Conversion Note - Historical ProviderMD - 07/13/2019 3:59 PM CDT Patient: SOFIA BARLOW Age: 79 [...] DRIVER MD-INT Basic Information awake alert comfortable, ???Progressively improving ???Participating well with PT/OT ???Pain well controlled ???High spirit ???Patient has good enough to go to a lower level of care ???Anticipate DC to SNF Wednesday Review of Systems Constitutional: No fever, No [...] 0.9% 50 mL 2 Gram, IV Piggyback, N22LUos cyanocobalamin 1,000 mcg tab 5,000 mcg 5 [...] Oral, Q4H fluticasone 0.05% nasal spray 2 Maysel, Nostrils Both, BID magnesium hydroxide 8% liq [...] Sleep apnea Physical Examination VS/Measurements Vital Measurements 07/13/2019 7:00 EDT Systolic Blood Pressure 148 mmHg HI Diastolic Blood Pressure 58 mmHg LOW Temperature Source Oral Temperature Mode Fahrenheit Temperature, Fahrenheit 97.6 Deg F Clinical Temperature, C 36.4 Deg C Heart Rate Monitored 68 bpm Respiratory Rate 18 Breaths/Min Oxygen Saturation [...] precautions. Sleep apnea precautions. Stress ulcer prophylaxis. Anticipate DC to snf Wednesday. Electronically signed by Maureen Cornejo Conversion Vocational Education Teacher Cerner at 06/16/2022 8:08 PM CDT documented in this encounter Plan of Treatment Not on file documented as of this encounter Visit Diagnoses Not on filedocumented in this encounter
--- OUTSIDE RECORDS SUMMARY | 2024-08-09 13:24 | XMS_ITS | Encounter Summary ---
Author Organization [employer] Address [address] [place] [address] Care Team Providers Care Art Professor Name Role Phone Unavailable Primary Care Provider Unavailabl e Encounter Details Date Type Department Care Team (Late st Contact Info) Description 06/28/2019 Transcribed Document [facility] Family Medicine [facility] [place] [address] ProviderMariela MD [place] [address] Social History Tobacco Use Types [...] Cerner Conversion Note - Historical ProviderMD - 06/28/2019 9:36 AM CDT Patient: SOFIA GILL Age: 79 years Sex: Female : 1940 Associated Diagnoses: None Author: CHRISSY HENDERSON, PharmD, BCPS HPI: 06/15 Pt admitted [place] [facility] [place] with infected L-TKA with chronic extensor rupture, [...] Antibiotics: Ceftriaxone 2gm IV Q24H (start day 06/16) Previous Antibiotics: Fluconazole 100mg (start 06/24-06/27) BMI BMI: 43.7 Weight: 98.18kg - Bed scale Height: 149.86cm (4ft ) - Chart Vitals Signs (last 24 hrs) Last Charted Minimum Maximum Temp 97.5 (JUN 27 08:00) 97.5 (JUN 27 08:00) 99.4 (JUN 26 20:00) Mon HR 78 (JUN 27:00) 78 (JUN 27 08:00) 91 (JUN 27 00:00) Resp Rate 18 (JUN 27:00) 18 (JUN 27 00:00) 20 (JUN 26 15:00) SBP 115 (JUN 27:00) 115 (JUN 27 08:00) H 148 (JUN 26:00) DBP L 51 (JUN 27:00) L 51 (JUN 27:00) L 59 (JUN 27:00) MAP 63 (JUN 27:00) 63 (JUN 27:00) 76 (JUN 27:00) SpO2 L 93 (JUN 27:00) L 90 (JUN 26:00) 100 (JUN 26 20:00) Intake & Output Totals Last 24 Hours (7a-7a) Input Total: 650 mL Output Total: 2200 mL Balance: -1550 mL Labs (Last four charted values) WBC H 10.6 (JUN 26) HB L 9.7 (JUN 26) HCT L 29.4 (JUN 26) Plt H 431 (JUN 26) Na 136 (JUN 27) 136 (JUN 26) K 4.4 (JUN 27) 4.6 (JUN 26) Cl 103 (JUN 27) 104 (JUN 26) CO2 28 (JUN 27) 28 (JUN 26) BUN 11 (JUN 27) 9 (JUN 26) Cr 0.60 (JUN 27) 0.60 (JUN 26) Glu R H 127 (JUN 27) 93 (JUN 26) Ca L 8.1 (JUN 27) L 8.1 (JUN 26) AST 15 (JUN 26) ALT L 11 (JUN 26) ALK P 56 (JUN 26) T Bili 0.5 (JUN 26) PTN L 5.9 (JUN 26) ALB L 2.4 (JUN 26) Creatinine Clearance (Current Encounter/Past 24 Hours) Creatinine Level 0.60 mg/dL 06/28/2019 06:23 Bun/Creatinine 18.3 06/28/2019 06:23 Estimated Creatinine Clearance 53.55 mL/Min 06/27/2019 06:34 Culture Results: 06/16 & 06/20 knee tissue strep agal Group B A/P: 1. Patient's orthopedic surgeon wants to use warfarin 2mg daily for DVT prophylaxis instead of lovenox. Will dose warfarin 2mg today and another dose at 1800 today. Warfarin 2mg daily thereafter. 2. INR goal is to be LESS than 2. 3. INR getting obtained today will monitor every few days. 4. Patient to get lovenox today and tomorrow and no more subsequent doses. Rx to follow, Chrissy Henderson, PharmD [phone] documented in this encounter Plan of Treatment Not on file documented as of this encounter Visit Diagnoses Not on filedocumented in this encounter
--- OUTSIDE RECORDS SUMMARY | 2024-08-09 13:24 | XMS_ITS | Encounter Summary ---
Author Organization [employer] Address [address] [place] [address] Care Team Providers Care Drier Take Off Tender Name Role Phone Unavailable Primary Care Provider Unavailabl e Encounter Details Date Type Department Care Team (Late st Contact Info) Description 07/18/2019 Transcribed Document [facility] Family Medicine [facility] [place] [address] ProviderMariela MD [address] [place] [address] Social History Tobacco Use Types Packs/Day [...] Cerner Conversion Note - Mariela ProviderMD - 07/18/2019 9:00 AM CDT Pain Assessment Entered On: 07/18/2019 17:09 EDT Performed On: 07/18/2019 10:19 EDT by Thuy Littlejohn RN Intervention Information: indomethacin Performed by Thuy Littlejohn RN on 07/18/2019 09:19:00 EDT indomethacin,25mg Oral Pain Assessment Pain Assessment : Follow-up assessment Pain Scale Goal : 3 Duration : chronic Pain Scale Used : 0-10 Scale Location : Generalized Onset : Chronic Quality : Aching Pain Worsened by : None Pain Improved by : Medication, Reassurance, Relaxation, Repositioning Thuy Littlejohn RN - 07/18/2019 17:09 EDT Pain Scale Intensity : 8 Thuy Littlejohn RN - 07/18/2019 17:09 EDT Image 4 - Images currently included in the form version of this document have not been included in the text rendition version of the form. Electronically signed by Interface, Maureen Conversion Supervisor Multifocal Lens Cerner at 06/16/2022 8:26 PM CDT documented in this encounter Plan of Treatment Not on file documented as of this encounter Visit Diagnoses Not on filedocumented in this encounter
--- OUTSIDE RECORDS SUMMARY | 2024-08-09 13:24 | XMS_ITS | Encounter Summary ---
Author Organization [employer] Address [address] [place] [address] Care Team Providers Care Associate Professor Plant Pathology Name Role Phone Unavailable Primary Care Provider Unavailabl e Encounter Details Date Type Department Care Team (Late st Contact Info) Description 06/16/2019 Transcribed Document [facility] [place] [address] [place] [address] ProviderMariela MD [address] [place] [address] Social History Tobacco Use Types Packs/Day Years Used Date Smoking Tobacco: Never Assessed Comments Unknown Sex and Gender Information Value Date Recorded Sex Assigned at Female 09/02/2021 8:57 PM CDT Legal Sex Female 6:58 PM CDT Gender Identity Female 09/02/2021 8:57 PM CDT Sexual Orientation Not on file documented as of this encounter Miscellaneous Notes * Cerner Conversion Note - Historical ProviderMD - 06/16/2019 9:27 PM CDT Consult Phone Call Documentation Entered On: 06/17/2019 8:27 EDT Performed On: 06/16/2019 21:27 EDT by KARY AQUINO Phone Call for Consults Physician Requested for Consult : LENORA SANTANA MD Provider Service Notified Name : Infectious Disease Consult, Additional Information : notified of consult KARY AQUINO - 06/17/2019 8:27 EDT documented in this encounter Plan of Treatment Not on file documented as of this encounter Visit Diagnoses Not on filedocumented in this encounter
--- OUTSIDE RECORDS SUMMARY | 2024-08-09 13:24 | XMS_ITS | Encounter Summary ---
Author Organization [employer] Address [address] [place] [id number] Care Team Providers Care Cellar Pumper Name Role Phone Unavailable Primary Care Provider Unavailabl e Encounter Details Date Type Department Care Team (Late st Contact Info) Description 06/28/2019 Transcribed Document [facility] Family Medicine [facility] [place] [address] ProviderMariela [place] [address] Social History Tobacco Use Types [...] Conversion Note - Historical ProviderMD - 06/28/2019 9:00 PM CDT Patient: SOFIA GILL Age: 79 years Sex: Female : 1940 Associated Diagnoses: None Author: ARA JONES MD-INF ID Progress Note CC: Left knee pain Current antimicrobial therapy: Rocephin IV Subjective: Patient with no new changes working with PT no n/v/d no rash no fevers Objective Vitals Signs (last 24 hrs) Last Charted Minimum Maximum Temp 97.8 (JUN 27 23:00) 97.8 (JUN 27 23:00) 99.6 (JUN 27 16:00) Mon HR 90 (JUN 27 23:00) 78 (JUN 27 08:00) 96 (JUN 27 19:00) Resp Rate 18 (JUN 27 23:00) 18 (JUN 27 08:00) 20 (JUN 27 16:00) SBP 135 (JUN 27 23:) 115 (JUN 27 08:00) H 153 (JUN 27 19:00) DBP L 52 (JUN 27:) L 51 (JUN 27:) 64 (JUN 27 16:00) MAP 63 (JUN 27:) 63 (JUN 27:00) 63 (JUN 27:) SpO2 98 (JUN 27:) L 93 (JUN 27:) 98 (JUN 27:) Physical Examination: Gen: Alert, in no acute distress. HEENT: NC/AT, PERRLA, EOMI, sclera nonicteric, no conjunctival injection RESP: CTA bilaterally without rhonchi, rales, or wheezes. Nonlabored breathing CV: RRR, loud systolic murmur. GI: BS normoactive in all 4 quadrants, soft, nontender, nondistended : No chou in place MS: to 3+ edema bilaterally knees, both knees are warm to touch. Left knee with some postoperative dressing in place SKIN: No eruptions, lesions, or rashes, PICC in place NEURO: No focal deficits moves all 4 extremities Labs:Labs (Last four charted values) WBC H 10.6 (JUN 26) HB L 9.7 (JUN 26) HCT L 29.4 (JUN 26) Plt H 431 (JUN 26) Na L 134 (JUN 28) 136 (JUN 27) 136 (JUN 26) K 4.5 (JUN 28) 4.4 (JUN 27) 4.6 (JUN 26) Cl 102 (JUN 28) 103 (JUN 27) 104 (JUN 26) CO2 28 (JUN 28) 28 (JUN 27) 28 (JUN 26) BUN 12 (JUN 28) 11 (JUN 27) 9 (JUN 26) Cr 0.60 (JUN 28) 0.60 (JUN 27) 0.60 (JUN 26) Glu R H 116 (JUN 28) H 127 (JUN 27) 93 (JUN 26) Ca L 8.1 (JUN 28) L 8.1 (JUN 27) L 8.1 (JUN 26) PT 11.6 (JUN 27) INR 1.1 (JUN 27) AST 15 (JUN 26) ALT L 11 (JUN 26) ALK P 56 (JUN 26) T Bili 0.5 (JUN 26) PTN L 5.9 (JUN 26) ALB L 2.4 (JUN 26) Micro: [facility]: 06/15 [facility] Blood cultures positive for group B [...] PICC line in lifelong oral suppression - at least weekly cbc/crp/cmp and esr monitor for adrs Electronically signed by Maureen Cornejo [employer]version [employer] System Installer Cerner at 06/16/2022 8:09 PM CDT documented in this encounter Plan of Treatment Not on file documented as of this encounter Visit Diagnoses Not on filedocumented in this encounter
--- OUTSIDE RECORDS SUMMARY | 2024-08-09 13:24 | XMS_ITS | Encounter Summary ---
Author Organization [employer] Address [address] [place] [id number] Care Team Providers Care [employer] Foreign Language Teacher Name Role Phone Unavailable Primary Care Provider Unavailabl e Encounter Details Date Type Department Care Team (Late st Contact Info) Description 08/22/2020 Transcribed Document [facility] [place] [address] [place] [address] ProviderMariela MD [address], [place] [address] Social History Tobacco Use Types Packs/Day Years [...] Historical ProviderMD - 08/22/2020 5:00 AM CDT Chart Check - Review Order Profile Entered On: 08/22/2020 4:25 EDT Performed On: 08/22/2020 5:00 EDT by Caitlyn Fallon Rn Chart Check Powerplans Initiated/Discontinued as Appropriate : Yes All Active Orders Reviewed : Yes Caitlyn Fallon Rn - 08/22/2020 4:25 EDT documented in this encounter Plan of Treatment Not on file documented as of this encounter Visit Diagnoses Not on filedocumented in this encounter
--- OUTSIDE RECORDS SUMMARY | 2024-08-09 13:24 | XMS_ITS | Clinical Summary ---
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 07/20 Aurelia Soto Leukemoid reaction Group B strep agalactiae Sepsis A40.1 (ICD-10-CM ) 07/20 Active 07/20 Aurelia Soto Sepsis due to streptococcus, group B Group B streptococcu s agalactiae infection 941849618 (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 07/20 Aurelia Soto Streptococcus agalactiae infection Disruption of external operation (surgical) wound, subsequent encounter(s) T81.31xD (ICD-10-CM ) 05/08 Resolved 05/08 Aurelia Valera Disruption of external operation (surgical) wound, not elsewhere classified, subsequent encounter 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 Z79.2 (ICD-10-CM ) 05/08 Resolved 05/08 Aurelia Soto group home (current) use of antibiotics Benign Essential Hypertension 8877381 (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 07/20 Aurelia Soto Benign essential hypertension ESR, elevated 485510026 (SNOMED CT) Resolved Aurelia Valera Erythrocyte sedimentation rate above reference range 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 Z79.2 (ICD-10-CM ) 05/08 Removed 05/08 Aurelia Valera 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 Disruption of external operation (surgical) wound, subsequent encounter(s) T81.31xD (ICD-10-CM ) 05/08 Removed 05/08 Aurelia Valera Disruption of external operation (surgical) wound, not elsewhere classified, subsequent encounter Adverse drug reaction 150289036 (SNOMED CT) 03/17 Inactive 03/17 Aurelia Valera Opioid analgesic adverse reaction Stasis dermatitis 91758971 (SNOMED CT) 03/09 Active 03/09 Carlos Wright MD Stasis dermatitis Adverse drug reaction 094560200 (SNOMED CT) 03/17 Removed 03/17 Carlos Wright MD Opioid analgesic adverse reaction ESR, elevated 776932909 (SNOMED CT) Removed Carlos Wright MD Erythrocyte sedimentation rate above reference range Anemia in chronic diseases(doc ument disease) D63.8 (ICD-10-CM ) Active Aurelia Valera Anemia in other chronic diseases classified elsewhere Knee, left, subsequent encounter, 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 T84.54xD (ICD-10-CM ) Active Aurelia Valera Infection and inflammatory reaction due to internal left knee prosthesis, subsequent encounter Cellulitis of LLE L03.116 (ICD-10-CM ) Active Aurelia Valera Cellulitis of left lower limb Other obesity due to excess calories 817658914 (SNOMED CT) Inactive Eileen Aiken Simple obesity Medications Medication Instructions Start Date Stop Date Generic Name NDC Provider CEPHALEXIN 500 MG CAPS TAKE 1 CAPSULE BY MOUTH ONCE DAILY 06/12 cephalexin 52005283329 Tyrell Stock MD DOXYCYCLINE MONOHYDRATE 100 MG CAPS Take 1 capsule by mouth once a day 0 4 doxycycline monohydrate 92929523523 Tyrell Stock MD CEPHALEXIN 500 MG CAPS Take 1 capsule by mouth once a day 0 4/ cephalexin 85697983917 Tyrell Stock MD CEPHALEXIN 500 MG CAPS Take 1 capsule by mouth once a day 0 3 cephalexin 13406652466 Kena Parmar RN CEPHALEXIN 500 MG CAPS TAKE 1 CAPSULE BY MOUTH ONCE DAILY 0 06/12 cephalexin 63757388815 Tyrell Stock MD DOXYCYCLINE MONOHYDRATE 100 MG CAPS Take 1 capsule by mouth once a day 0 doxycycline monohydrate 22581564035 Tyrell Stock MD CEPHALEXIN 500 MG CAPS Take 1 capsule by mouth once a day 0/09 cephalexin 88812305101 Tyrell Stock MD CEPHALEXIN 500 MG CAPS Take 1 capsule by mouth once a day 0 1 cephalexin 34053033416 Tyrell Stock MD DOXYCYCLINE HYCLATE 100 MG CAPS Take 1 capsule by mouth once a day 0 06/08 doxycycline hyclate 59729527474 Tyrell Stock MD CEPHALEXIN 500 MG CAPS Take 1 capsule by mouth once a day 0 07/18 cephalexin 56738411875 Tyrell Stock MD HYDROCODONE-ACETAM INOPHEN 5-325 MG TABS hydrocodone-aceta minophen 76643687928 Karrie Minor DOXYCYCLINE HYCLATE 100 MG CAPS TAKE 1 CAPSULE BY MOUTH ONCE DAILY 0 06/15 doxycycline hyclate 02272350898 Tyrell Stock MD CEPHALEXIN 500 MG CAPS Take 1 capsule by mouth once a day TAKE 1 CAPSULE BY MOUTH ONCE DAILY 0 06/15 cephalexin 36193881515 Tyrell Stock MD CEPHALEXIN 500 MG CAPS Take 1 capsule by mouth once a day 0 06/09 cephalexin 29497824930 Tyrell Stock MD DOXYCYCLINE HYCLATE 100 MG CAPS Take 1 capsule by mouth once a day 0 06/09 doxycycline hyclate 36225987211 Tyrell Stock MD CEPHALEXIN 500 MG CAPS Take 1 capsule by mouth once a day 0 06/11 cephalexin 53452286636 [facility] CEPHALEXIN 500 MG CAPS Take 1 capsule by mouth once a day TAKE 1 CAPSULE BY MOUTH ONCE DAILY 07/11 cephalexin 20975360268 Tyrell Stock MD DOXYCYCLINE HYCLATE 100 MG CAPS Take 1 capsule by mouth once a day 06/11 doxycycline hyclate 67950966062 [facility] DOXYCYCLINE HYCLATE 100 MG CAPS TAKE 1 CAPSULE BY MOUTH ONCE DAILY 07/11 doxycycline hyclate 84286375215 Tyrell Stock MD DOXYCYCLINE HYCLATE 100 MG CAPS Take 1 capsule by mouth once a day 0 06/13 doxycycline hyclate 97471590003 Tyrell Stock MD CEPHALEXIN 500 MG CAPS Take 1 capsule by mouth once a day 0 06/13 cephalexin 87778671805 Tyrell Stock MD HYDROCODONE-ACETAM INOPHEN 5-325 MG TABS 0 hydrocodone-aceta minophen 15635830158 Karrie Olivaresde CEPHALEXIN 500 MG CAPS Take 1 capsule by mouth once a day 0 cephalexin 59987749322 Tyrell Stock MD DOXYCYCLINE HYCLATE 100 MG CAPS Take 1 capsule by mouth once a day 0 06/06 doxycycline hyclate 56731233014 Tyrell Stock MD MAGNESIUM OXIDE -MG SUPPLEMENT 250 MG TABS 2 tablet by mouth twice a day magnesium oxide 33877306041 Umu Carter PANTOPRAZOLE SODIUM 40 MG TBEC Take 1 tablet by mouth once a day pantoprazole 41750288595 [facility] FLORASTOR 250 MG CAPS Take capsule by mouth twice a day saccharomyces boulardii 85015185041 Umu Carter ROSUVASTATIN CALCIUM 10 MG TABS Take 1 tablet by mouth once a day rosuvastatin 32736857882 [facility] POTASSIUM CHLORIDE ER 20 MEQ CR-TABS Take tablet by mouth twice a day potassium chloride 00479142053 [facility] [employer] FLUTICASONE PROPIONATE 50 MCG/ACT SUSP 2 spray into both nostrils twice a day as needed fluticasone propionate 52996195432 [facility] [employer] WARFARIN SODIUM 2 MG TABS Take 1 tablet by mouth once a day warfarin 73634498890 [facility] LISINOPRIL 10 MG TABS Take 1 tablet by mouth once a day lisinopril 85690938050 [facility] CO Q 10 100 MG CAPS Take one by mouth daily coenzyme [id number] e 20695746606 [facility]mu [facility] B-12 5000 MCG CAPS Take one by mouth daily cyanocobalamin (vitamin b-12) 61440276440 [facility] DOCUSATE SODIUM 100 MG CAPS Take capsule by mouth twice a day docusate sodium 21424615076 [facility] HYDROCODONE-ACETAM INOPHEN 7.5-325 MG TABS tablet by mouth every four hours as needed hydrocodone-aceta minophen 42769324520 Umu [facility] SENOKOT S 8.6-50 MG TABS 2 tablet by mouth every night sennosides-docusa te sodium 38868087975 [facility] DULOXETINE HCL 60 MG CPEP Take 1 capsule by mouth once a day duloxetine 70146397888 [facility] [employer] GABAPENTIN 300 MG CAPS Take 1 capsule by mouth once a day gabapentin 60467551199 [facility] Adult Aspirin Regimen 81 mg tablet,delayed release (DR/EC) Take 1 tablet by mouth once a day aspirin 42585843907 [facility] LEVOTHYROXINE SODIUM 100 MCG TABS Take 1 tablet by mouth once a day levothyroxine 45770718806 Umu Carter LORATADINE 10 MG TABS Take 1 tablet by mouth once a day loratadine 78861502127 Umu Carter DAILY MULTIVITAMIN CAPS Take 1 capsule by mouth once a day [id number] [id number] 21702164755 Umu Carter DOXYCYCLINE MONOHYDRATE 100 MG CAPS one cap bid 9 DOXYCYCLINE MONOHYDRATE 83753393829 Tyrell Stock MD CEPHALEXIN 500 MG CAPS one capsule bid 9 CEPHALEXIN 21386305020 Tyrell Stock MD DOXYCYCLINE MONOHYDRATE 100 MG CAPS one cap bid 6 DOXYCYCLINE MONOHYDRATE 94929199783 Tyrell Stock MD DOXYCYCLINE MONOHYDRATE 100 MG CAPS one cap bid 05/05 DOXYCYCLINE MONOHYDRATE 65148453268 Tyrell Stock MD CEPHALEXIN 500 MG CAPS two cap every 8 hours 04/09 CEPHALEXIN 05597765661 Tyrell Stock MD CEPHALEXIN 500 MG CAPS two cap tid 0 CEPHALEXIN 50246790677 Tyrell Stock MD CEPHALEXIN 500 MG CAPS two capsules every 12 hours 11/28 CEPHALEXIN 02685653231 Tyrell Stock MD CEFTRIAXONE SODIUM (IV) SOLR Rocephin 2G IV Q24hrs / [place] [phone] CEFTRIAXONE SODIUM SOLR [id number] Rayna Perry CEFTRIAXONE SODIUM (IV) SOLR Rocephin 2G IV Q24hrs / [place] [phone] CEFTRIAXONE SODIUM SOLR 14969306678 Pina Gillespie RN WARFARIN SODIUM 2 MG TABS Take one by mouth daily 4 WARFARIN SODIUM 13007111899 Umu Carter POTASSIUM CHLORIDE ER 20 MEQ CR-TABS Take by mouth twice a day 2/06 POTASSIUM CHLORIDE 46113947312 Umu Carter MAGNESIUM OXIDE 250 MG TABS 2 tabs twice daily 4 MAGNESIUM OXIDE 76778400729 Umu Carter LORATADINE 10 MG TABS Take one by mouth daily 2/ LORATADINE 99889311442 Umu Carter LISINOPRIL 10 MG TABS Take one by mouth daily 2/ LISINOPRIL 03334959720 Umu Carter FLUTICASONE PROPIONATE 50 MCG/ACT SUSP 2 Breeding, Nostrils Both, Breeding, BID, PRN 05/30 FLUTICASONE PROPIONATE 89958394380 [facility] DOCUSATE SODIUM 100 MG CAPS Take by mouth twice a day 05/30 DOCUSATE SODIUM 65062111089 [facility] B-12 5000 MCG CAPS Take one by mouth daily 2 CYANOCOBALAMIN 03709602547 Umu Carter LEVOTHYROXINE SODIUM 100 MCG TABS Take one by mouth daily 05/30 LEVOTHYROXINE SODIUM 25314096134 [facility] SENOKOT S 8.6-50 MG TABS 2 tabs at bedtime 2/ SENNOSIDES-DOCUSA TE SODIUM 98798319306 [facility] PANTOPRAZOLE SODIUM 40 MG TBEC Take one by mouth daily 05/30 PANTOPRAZOLE SODIUM 60058681862 [facility] DAILY MULTIVITAMIN CAPS Take one by mouth daily 2/06 MULTIPLE VITAMINS-MINERALS 39764211259 Umu Carter FLORASTOR 250 MG CAPS Take by mouth twice a day 2/ SACCHAROMYCES BOULARDII 15428335562 Umu Carter DULOXETINE HCL 60 MG CPEP Take one by mouth daily 4/ DULOXETINE HCL 60565142403 Umuval [facility] ROSUVASTATIN CALCIUM 10 MG TABS Take one by mouth daily 7 ROSUVASTATIN CALCIUM 82716216907 Umu Carter CO Q 10 CAPS Take one by mouth daily 04/06 COENZYME Q10 CAPS 57984141936 Umu Carter ADULT ASPIRIN REGIMEN 81 MG ORAL TABLET DELAYED RELEASE Take one by mouth daily 05/30 ASPIRIN 79124728231 Umu Carter GABAPENTIN 300 MG CAPS Take one by mouth daily 05/30 GABAPENTIN 34105740770 Umu Carter HYDROCODONE-ACETAM INOPHEN 7.5-325 MG TABS Q4H/PRN 04/06 HYDROCODONE-ACETA MINOPHEN 65313438311 Umu Carter B-12 100 MCG TABS by mouth daily 07/19 CYANOCOBALAMIN 71116828117 Umu Carter MULTIVITAL ORAL TABLET Daily. 07/19 MULTIPLE VITAMINS-MINERALS 89537066316 Umu Carter ALBUTEROL SULFATE (2.5 MG/3ML) 0.083% NEBU Four times daily as needed. 07/19 ALBUTEROL SULFATE 57810531587 Umu Carter DOCUSATE SODIUM 100 MG CAPS Daily. 07/19 DOCUSATE SODIUM 59204675306 Umu Carter GNP FLUTICASONE PROPIONATE 50 MCG/ACT SUSP 2 sprays to both nostrils as needed. 07/19 FLUTICASONE PROPIONATE 47338413817 Umu Carter SYNTHROID 100 MCG TABS Daily. 07/19 LEVOTHYROXINE SODIUM 65463042570 Muu Carter MIRALAX 17 GM/SCOOP POWD 17g once daily. 07/19 POLYETHYLENE GLYCOL 3350 69840799293 Umu Carter CO Q 10 10 MG CAPS Daily. 07/19 COENZYME Q10 01127499184 Umu Carter TURMERIC CURCUMIN CAPS Daily. 07/19 TURMERIC CAPS 62266828184 [facility] CALCIUM + D + K TABS 600mg daily. 07/19 CALCIUM-VITAMIN D-VITAMIN K TABS 95881618731 [facility] INDAPAMIDE 2.5 MG TABS Daily. 07/19 INDAPAMIDE 53662047762 [facility] POTASSIUM CHLORIDE 20 MEQ PACK Twice daily. 07/19 POTASSIUM CHLORIDE 30703690042 Umu Carter SIMVASTATIN 20 MG TABS 1 tab at bedtime. 07/19 SIMVASTATIN 60360844170 Umu Carter TRAMADOL HCL 50 MG TABS Every 6 hours as needed. 07/19 TRAMADOL HCL 69300401858 [facility] DICLOFENAC SODIUM 75 MG TBEC Twice daily--pt's request. 07/19 DICLOFENAC SODIUM 94154037273 Umu Carter PROBIOTIC ACIDOPHILUS ORAL TABLET Daily. 07/19 LACTOBACILLUS 23327507232 Umu Carter KEFLEX 500 MG ORAL CAPSULE by mouth four times a day 07/19 CEPHALEXIN 64708180771 Umu Carter KEFLEX 500 MG ORAL CAPSULE one po qid 06/04 CEPHALEXIN 60923957382 Darby Lynch APRN B-12 100 MCG TABS by mouth daily 04/08 CYANOCOBALAMIN 88476466088 Christine Morguelan OXYCODONE HCL 5 MG CAPS 1-2 tabs every 6 hours as needed for pain. 05/04 OXYCODONE HCL 75381678738 Christine Morguelan COUMADIN 2 MG ORAL TABLET Take once daily for six weeks 05/04 WARFARIN SODIUM 24421637455 Christine Morguelan GABAPENTIN 300 MG CAPS At bedtime. 05/04 GABAPENTIN 43514506900 Christine Morguelan CYANOCOBALAMIN 1000 MCG/ML SOLN 5000mcg daily. 3 CYANOCOBALAMIN 99885348286 Christine Castañeda MORPHINE SULFATE 15 MG TABS Every 12 hours. 05/04 MORPHINE SULFATE 80358083645 Christine Castañeda CYCLOBENZAPRINE HCL TABLET As needed. 05/04 CYCLOBENZAPRINE HCL TABS 87212694726 Christine Castañeda KEFLEX 500 MG ORAL CAPSULE by mouth four times a day 08/01 CEPHALEXIN 33913152252 Inés Wright DOXYCYCLINE HYCLATE 100 MG CAPS 100mg po twice daily 03/30 DOXYCYCLINE HYCLATE 91221028953 Inés Wright DOXYCYCLINE HYCLATE 100 MG CAPS 100mg po twice daily 06/06 DOXYCYCLINE HYCLATE 17055044925 Carlos Wright MD ROCEPHIN SOLUTION RECONSTITUTED 2g IV daily [facility] [phone] FAX 03/09 CEFTRIAXONE SODIUM SOLR 19415639378 Kiara Medrano RN COUMADIN 2 MG ORAL TABLET Take once daily for six weeks 05/04 WARFARIN SODIUM 60946798619 Nataliia Domingo Baudilio PROBIOTIC ACIDOPHILUS ORAL TABLET Daily. 08/01 LACTOBACILLUS 40735342425 Eileen Aiken ROCEPHIN SOLUTION RECONSTITUTED 2g IV daily [facility] [phone] FAX CEFTRIAXONE SODIUM SOLR 98268790137 Carole Carrasco RN CYCLOBENZAPRINE HCL TABLET As needed. 0 05/04 CYCLOBENZAPRINE HCL TABS 46574763365 Eileen Aiken DICLOFENAC SODIUM 75 MG TBEC Twice daily--pt's request. 05/30 DICLOFENAC SODIUM 37595509852 Eileen Aiken TRAMADOL HCL 50 MG TABS Every 6 hours as needed. 0 6 TRAMADOL HCL 74556029624 Eileen Aiken SIMVASTATIN 20 MG TABS 1 tab at bedtime. 6/ SIMVASTATIN 34584631971 Eileen Aiken MORPHINE SULFATE 15 MG TABS Every 12 hours. 3/06 MORPHINE SULFATE 02911766024 Eileen Aiken POTASSIUM CHLORIDE 20 MEQ PACK Twice daily. 4/ POTASSIUM CHLORIDE 01332432078 Eileen Aiken INDAPAMIDE 2.5 MG TABS Daily. 08/01 INDAPAMIDE 51983029668 Eileen Attila CYANOCOBALAMIN 1000 MCG/ML SOLN 5000mcg daily. 9 CYANOCOBALAMIN 81267832438 Eileen Aiken CALCIUM + D + K TABS 600mg daily. 08/01 CALCIUM-VITAMIN D-VITAMIN K TABS 68521270463 Eileen Attila TURMERIC CURCUMIN CAPS Daily. 05/30 TURMERIC CAPS 26996214171 Eileen Attila CO Q 10 10 MG CAPS Daily. 6 COENZYME Q10 89986525946 Eileen Attila MIRALAX 17 GM/SCOOP POWD 17g once daily. 04/11 POLYETHYLENE GLYCOL 3350 71727112205 Eileen Attila SYNTHROID 100 MCG TABS Daily. 4 LEVOTHYROXINE SODIUM 23341578020 Eileen Attila GABAPENTIN 300 MG CAPS At bedtime. 4 GABAPENTIN 10405179379 Eileen Attila GNP FLUTICASONE PROPIONATE 50 MCG/ACT SUSP 2 sprays to both nostrils as needed. 6 FLUTICASONE PROPIONATE 25617450221 Eileen Attila DOCUSATE SODIUM 100 MG CAPS Daily. 05/30 DOCUSATE SODIUM 68249385905 Eileen Attila ALBUTEROL SULFATE (2.5 MG/3ML) 0.083% NEBU Four times daily as needed. 4 ALBUTEROL SULFATE 70064164259 Eileen Attila COUMADIN 1 MG ORAL TABLET Once daily for 6 weeks. WARFARIN SODIUM 09047807948 Eileen Aiken OXYCODONE HCL 5 MG CAPS 1-2 tabs every 6 hours as needed for pain. 03/12 OXYCODONE HCL 50243567035 Eileen Aiken MULTIVITAL ORAL TABLET Daily. 08/01 MULTIPLE VITAMINS-MINERALS 43565510436 Eileen Aiken ROCEPHIN SOLUTION RECONSTITUTED 2g IV daily HH [facility] CEFTRIAXONE SODIUM SOLR [id number] Chevy P Medications Administered No information available. Allergies, Adverse Reactions, Alerts Allergy Name Reaction Description Start Date Severity Statu s Provider AMLODIPINE BESYLATE Moderate Active Umu Carter SULFA DRUGS Itching Critical Active Eileen K PHENTERMINE Unknown rxn Critical Active Whitn ey K PENICILLIN Shortness of breath Critical Active Eileen K NAPROSYN Itching Critical Active Eileen K MOBIC Itching Critical Active Eileen K LATEX Itching Critical Active Eileen K ETODOLAC Itching Critical Active Eileen K BEXTRA Itching Critical Active Eileen K Results Date Name Value Unit Range Flag Description Chart Maintenance: CMP, CBC, CRP, ESR 01/25 MONOCYTE % 11.8 % Monocytes/ 100 leukocytes in Blood by Automated count Lab Report: CBC WITH AUTO DI FFERENTIAL IMMATUREGRAN 0.01 10*3/MM3 0.00-0.03 Immature granulocytes [#/volume] in Blood IMM GRANU % 0.2 % 0.0-0.6 Immature granulocytes/100 leukocytes in Blood [id number]-GE-[id number] 0.3 % 0.0-1.0 GE use only - for [employer] import when terms are not otherwise specified LYMPHOCY BF 27.5 % 24.0-44.0 lymphoc ytes as percent of body fluid leukocytes PMN % 55.6 % 41.0-71.0 Neutrophils /100 leukocytes in Blood by Automated count RDW_ 12.2 11.3-14.5 RDW, no uni ts MCHC 32.3 G/DL 32.0-36.0 MCHC [Mass/ volume] by Automated count MCH 31.6 pg 27.0-31.0 H MCH [Entiti c mass] by Automated count MCV 98.0 fL 80.0-99.0 MCV [Entiti c volume] by Automated count Lab Report: COMPREHENSIVE ME TABOLIC PANEL ANIONGAP 6.0 mmol/L 3.0-11.0 anion gap, serum BUN/CREAT 27.5 7.0-25.0 H Urea nitrogen/Creatinine [Mass Ratio] in Serum or Plasma GFRC 70 mL/min/1 .73m2 >60 Glomerular Filtration Rate Calculation ALBUMIN 4.20 g/dL 3.20-4.80 Albumin [Mass/volume] in Serum or Plasma PROTEIN, TOT 6.5 g/dL 5.7-8.2 Protein [Mass/volume] in Serum or Plasma CO2 35.0 mmol/L 20.0-31.0 H Carbon diox breonna, total [Moles/volume] in Venous blood CHLORIDE 98 mmol/L 99-109 L Chloride [Moles/volume] in Serum or Plasma Chart Maintenance: 08/06 cbc, cmp, esr, crp BASO# 0.1 Basophils [#/volume] in Blood Chart Maintenance: 08/13 cbc, cmp, esr, crp BASOPHIL % 0.6 % Basophils/ 100 leukocytes in Blood by Manual count EOS ABSLT 0.5 10*3/uL Eosinophils [#/volume] in Blood % EOS AUTO 7.5 % Eosinophil s/100 leukocytes in Blood by Automated count MONOCYTE BF 9.2 % monocytes as percent of body fluid leukocytes MONOSCT AUTO 0.6 10*3/uL Monocyte s [#/volume] in Blood by Automated count LYMPHCT AUTO 1.3 10*3/mm3 Lymphoc ytes [#/volume] in Blood by Automated count ABS NEUTROPH 4.1 10*3/uL Neutroph ils [#/volume] in Blood Chart Maintenance: Entered labs ESR 48 mm/h Erythrocyte sedimentation rate by Westergren method CRP 1.61 mg/dL C reactive pr otein [Mass/volume] in Serum or Plasma LYMPHS % 28.4 % Lymphocytes/ 100 leukocytes in Blood by Automated count NEUTROP BF 48.4 % Neutrophil s/100 leukocytes in Body fluid PLATELETS 463 10*3/mm3 Platelets [#/volume] in Blood by Automated count HCT 29.8 % Hematocrit [V olume Fraction] of Blood by Automated count HGB 8.9 g/dL Hemoglobin [Mass/volume] in Blood RBC 3.15 10*6/mm3 Erythrocytes [#/volume] in Blood by Automated count WBC 6.79 10*3/mm3 Leukocytes [#/volume] in Blood by Automated count BILI TOTAL <0.2 mg/dL Bilirubin. total [Mass/volume] in Serum or Plasma SGOT (AST) 15 U/L Aspartate aminotransferase [Enzymatic activity/volume] in Serum or Plasma SGPT (ALT) 5 U/L Alanine aminotransferase [Enzymatic activity/volume] in Serum or Plasma ALK PHOS 64 U/L Alkaline phosphatase [Enzymatic activity/volume] in Blood CREATININE 0.90 mg/dL Creatinine [Mass/volume] in Serum or Plasma BUN 17 mg/dL Urea nitrogen [Mass/volume] in Serum or Plasma CALCIUM 8.0 mg/dL Calcium [Moles/volume] in Serum or Plasma POTASSIUM 4.6 mmol/L Potassium [Moles/volume] in Serum or Plasma SODIUM 142 mmol/L Sodium [Moles/volume] in Serum or Plasma GLUCOSE SER 100 mg/dL Glucose [Mass/volume] in Serum or Plasma [facility] ABATTOIR Yes - Overweight Dietary manageme nt education, guidance, and counseling (procedure) Office Visit: Office Visit: room 14 tele MEDS REVIEW Done Documenta tion of current medications (procedure) ORALTOBACUSE Never Tobacco smoking status SMOK STATUS Never smoker [employer]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 Plan of Care Type Date Detail Appointment 09:15 AM Tyrell Stock MD, [address], [address], [place], [address], Pending order Continue oral an tibiotics Pending order CMP Pending order CBC with Differe ntial Pending order C- reactive prot ein Pending order Sedimentation Ra te (ESR) Pending order Continue oral an tibiotics Pending order CMP Pending order CBC with Differe ntial Pending order C- reactive prot ein Pending order Sedimentation Ra te (ESR) Pending order Continue oral an tibiotics Pending order CMP Pending order CBC with Differe ntial Pending order C- reactive prot ein Pending order Sedimentation Ra te (ESR) Pending order CMP Pending order CBC with Differe ntial Pending order C- reactive prot ein Pending order Sedimentation Ra te (ESR) Pending order Continue oral an tibiotics Pending order CMP Pending order CBC with Differe ntial Pending order C- reactive prot ein Pending order Sedimentation Ra te (ESR) Pending order Continue oral an tibiotics Pending order CMP Pending order CBC with Differe ntial Pending order C- reactive prot ein Pending order Sedimentation Ra te (ESR) Pending order Continue oral an tibiotics Pending order CMP Pending order CBC with Differe ntial Pending order C- reactive prot ein Pending order Sedimentation Ra te (ESR) Pending order Continue oral an tibiotics Pending order Continue oral an tibiotics Pending order Continue oral an tibiotics Pending order CMP Pending order CBC with Differe ntial Pending order C- reactive prot ein Pending order Sedimentation Ra te (ESR) Pending order Continue oral an tibiotics Pending order Continue oral an tibiotics Pending order CMP Pending order CBC with Differe ntial Pending order C- reactive prot ein Pending order Sedimentation Ra te (ESR) Pending order Labs Pending order Continue oral an tibiotics Pending order Continue oral an tibiotics Pending order CMP Pending order CBC with Differe ntial Pending order C- reactive prot ein Pending order Sedimentation Ra te (ESR) Pending order Continue oral an tibiotics Pending order CMP Pending order CBC with Differe ntial Pending order C- reactive prot ein Pending order Sedimentation Ra te (ESR) Pending order Continue oral an tibiotics Pending order Continue IV anti biotics Pending order Discontinue oral antibiotics Pending order Continue IV anti biotics Pending order STAT Labs Pending order CBC with Differe ntial Pending order CMP Pending order Sedimentation Ra te (ESR) Pending order C- reactive prot ein Pending order Continue oral an tibiotics Pending order STAT Labs Pending order Continue oral an tibiotics Pending order Unna Boot Pending order PICC Removal Pending order Discontinue IV a ntibiotics Pending order New Oral Antibio tic Pending order Continue IV anti biotics Pending order Weekly Labs (Con tinue) Pending order Weekly PICC Line Care Pending order Continue IV anti biotics Pending order Continue IV anti biotics Pending order Continue IV anti biotics Pending order Continue IV anti biotics Pending order Weekly Labs (Con tinue) Pending order Weekly PICC Line Care Pending order Continue IV anti biotics Pending order Continue IV anti biotics Pending order Weekly Labs (Con tinue) Pending order Weekly PICC Line Care Patient education centlidsmpp Patient education centlidsmpp Patient education WEIGHT%20MANAG EMENT Patient education WEIGHT%20MANAG EMENT Patient education WEIGHT%20MANAG EMENT Patient education WEIGHT%20MANAG EMENT Procedures Code Procedure Name Date Entry Date G21 Complex E&M visit add-on (G2211) CPT-[facility]oor[facility] Continue oral antibiotics 20 22/12/15 CPT-34174 CMP [id number] CBC with Differential 2022 CPT-93761 C- reactive protein CPT-73041 Sedimentation Rate (ESR) 202 05/09/15 CPT-[facility]ooral Continue oral antibiotics 21/06/16 CPT-41527 CMP [id number] CBC with Differential 2022 CPT-36555 C- reactive protein CPT-20738 Sedimentation Rate (ESR) 202 05/02/16 CPT-[facility]ooral Continue oral antibiotics 20 20/12/16 CPT-85577 CMP [id number] CBC with Differential 2021 CPT-27124 C- reactive protein CPT-63120 Sedimentation Rate (ESR) 202 04/10/16 CPT-Cooral Continue oral antibiotics 20 20/06/10 CPT-Cooral Continue oral antibiotics 20 18/02/06 CPT-Cooral Continue oral antibiotics 20 19/11/06 CPT-29609 CMP [id number] CBC with Differential 2020 CPT-06946 C- reactive protein CPT-93947 Sedimentation Rate (ESR) 202 03/09/06 CPT-Cooral Continue oral antibiotics 20 20/08/07 CPT-Cooral Continue oral antibiotics 20 20/05/07 CPT-66935 CMP [id number] CBC with Differential 2020 CPT-16457 C- reactive protein CPT-46235 Sedimentation Rate (ESR) 202 03/03/07 CPT-labs Labs CPT-Cooral Continue oral antibiotics 20 17/02/07 CPT-Cooral Continue oral antibiotics 20 19/12/11 CPT-44004 CMP [id number] CBC with Differential 2019 CPT-78942 C- reactive protein CPT-43945 Sedimentation Rate (ESR) 202 CPT-Cooral Continue oral antibiotics 20 18/11/08 CPT-13160 CMP [id number] CBC with Differential 2019 CPT-70557 C- reactive protein CPT-27470 Sedimentation Rate (ESR) 202 CPT-Cooral Continue oral antibiotics 20 18/09/19 CPT-ca Continue IV antibiotics 2019 CPT-oral Discontinue oral antibiotics CPT-ca Continue IV antibiotics 2019 CPT-sl STAT Labs [id number] CBC with Differential 2017 CPT-14360 CMP CPT-19406 Sedimentation Rate (ESR) 201 10/03/08 CPT-49501 C- reactive protein CPT-Cooral Continue oral antibiotics 20 16/05/05 CPT-sl STAT Labs CPT-Cooral Continue oral antibiotics 20 18/03/01 CPT-30470 Unna Boot CPT-PICREM PICC Removal CPT-DC Discontinue IV antibiotics 2 CPT-[place] New Oral Antibiotic CPT-ca Continue IV antibiotics 2016 CPT-cwl Weekly Labs (Continue) 12/31 CPT-wpc Weekly PICC Line Care 03/02 CPT-ca Continue IV antibiotics 2016 CPT-ca Continue IV antibiotics 2016 CPT-ca Continue IV antibiotics 2016 CPT-ca Continue IV antibiotics 2016 CPT-cwl Weekly Labs (Continue) 12/17 CPT-wpc Weekly PICC Line Care CPT-ca Continue IV antibiotics 2016 CPT-ca Continue IV antibiotics 2016 CPT-cwl Weekly Labs (Continue) 12/10 CPT-wpc Weekly PICC Line Care Vital Signs Date Name Value Unit Description [...] Measured 210 [lb_av] weight E& M Immunizations Vaccine Administration Date Standard Description CVX Co de Dose Unspecified Formulation Unspecified Formulation 88 Unknown Advance Directives Directive Description Start Date NO ADVANCED DIRECTIVES
--- OUTSIDE RECORDS SUMMARY | 2024-08-09 13:24 | XMS_ITS | Referral Summary ---
Author Organization [employer] Address [address] [place] [address] Care Team Providers Care Handicapped Teacher Name Role Phone Unavailable Primary Care [...]
--- OUTSIDE RECORDS SUMMARY | 2024-08-09 13:24 | XMS_ITS | Encounter Summary ---
Author Organization [employer] Address [address] [place] [address] Care Team Providers Care Template Cutter Name Role Phone Unavailable Primary Care Provider Unavailabl e Encounter Details Date Type Department Care Team (Late st Contact Info) Description 06/27/2019 Transcribed Document [facility] [place] [address] [place] [address] ProviderMariela MD [address], [place] [id number] Social History Tobacco Use Types Packs/Day Years Used Date Smoking Tobacco: Never Assessed Comments Unknown Sex and Gender Information Value Date Recorded Sex Assigned at Female 09/02/2021 8:57 PM CDT Legal Sex Female 6:58 PM CDT Gender Identity Female 09/02/2021 8:57 PM CDT Sexual Orientation Not on file documented as of this encounter Miscellaneous Notes * Cerner Conversion Note - Historical ProviderMD - 06/27/2019 2:00 AM CDT Telecommunications Facility Examiner Details Entered On: 06/27/2019 3:56 EDT Performed On: 06/27/2019 2:00 EDT by Bibi Gallagher RN Order Details Order Detail : N/A IV Order Detail : 1 Oxygen Order Detail : 1 Nurse Collect Order Detail : 1 Lift/Transfer : Moderate assist Central Line Order Detail : Yes Room Service : Appropriate Arterial Line : No Bibi Gallagher RN - 06/27/2019 3:56 EDT documented in this encounter Plan of Treatment Not on file documented as of this encounter Visit Diagnoses Not on filedocumented in this encounter
--- OUTSIDE RECORDS SUMMARY | 2024-08-09 13:24 | XMS_ITS | Encounter Summary ---
Author Organization [employer] Address [address] [place] [address] Care Team Providers Care Master Automotive Glass Technician Name Role Phone Unavailable Primary Care Provider Unavailabl e Encounter Details Date Type Department Care Team (Late st Contact Info) Description 07/08/2019 Transcribed Document [facility] [place] [facility] [place] [address] ProviderMariela MD [facility] [place] [address] Social History Tobacco Use [...] Cerner Conversion Note - Mariela ProviderMD - 07/08/2019 8:50 PM CDT Patient: SOFIA BARLOW Age: 79 [...] DONNA DRIVER MD-INT Basic Information awake alert comfortable , pain under control, no trouble w. urination. ???Walked 55 feet with PT ???Better appetite ???Pain only while walking with PT and tolerable ???No more lower extremity edema ???Dermatosis right leg improved and even resolved Review of Systems Constitutional: No fever, No chills. Eye: No discharge, No blurring, No double vision, No visual disturbances. Ear/Nose/Mouth/Throat: No nasal congestion, No sore throat. Respiratory: No shortness of breath, No cough. Cardiovascular: No chest pain, No palpitations. Gastrointestinal: No nausea, No vomiting. Genitourinary: No change in urine stream. Musculoskeletal: Pain while putting pressure on her left lower extremity. Integumentary: Negative. Neurologic: Alert and oriented X4. [...] 0.9% 50 mL 2 Gram, IV Piggyback, [id number] cyanocobalamin 1,000 mcg tab 5,000 mcg 5 [...] Oral, Q4H fluticasone 0.05% nasal spray 2 [place], Nostrils Both, BID magnesium hydroxide 8% liq [...] Sleep apnea Physical Examination VS/Measurements Vital Measurements 07/08/2019 19:00 EDT Systolic Blood Pressure 144 mmHg HI Diastolic Blood Pressure 49 mmHg LOW Temperature Source Oral Temperature Mode Fahrenheit Temperature, Fahrenheit 98.2 Deg F Clinical Temperature, C 36.8 Deg C Heart Rate Monitored 88 bpm [...] neck, axilla, groin. Musculoskeletal: Normal strength, No swelling, brace left lower extremity. Integumentary: Warm, Intact, No rash. Neurologic: Alert, [...] % 25.0 % Lymph # 1.57 x10(3)/uL Furnas % 12.1 % HI Furnas # 0.76 K/uL Eos % 4.8 % Eos # 0.30 x10(3)/uL Baso % 0.3 % Baso # 0.02 x10(3)/uL Slide Review No IG# 0.03 x10(3)/uL IG% 0.50 % PT 11.8 Second(s) INR 1.1 . Condition: Stable. Impression and Plan Diagnosis [...] by infectious disease. Pain control. DVT prophylaxis. We'll monitoring fluid and electrolytes. Fall risk precautions. Sleep apnea precautions. Stress ulcer prophylaxis. BiPAP during sleep.. documented in this encounter Plan of Treatment Not on file documented as of this encounter Visit Diagnoses Not on filedocumented in this encounter
--- OUTSIDE RECORDS SUMMARY | 2024-08-09 13:24 | XMS_ITS | Encounter Summary ---
Author Organization [employer] Address [address] [place] [address] Care Team Providers Care Surgical Nurse Practitioner Name Role Phone Unavailable Primary Care Provider Unavailabl e Encounter Details Date Type Department Care Team (Late st Contact Info) Description 06/28/2019 Transcribed Document [facility] [place] [address] [place] [address] ProviderMariela MD [address], [place] [id number] Social History Tobacco Use Types Packs/Day Years [...] Conversion Note - Historical ProviderMD - 06/28/2019 5:00 PM CDT Chart Check - Review Order Profile Entered On: 06/28/2019 15:36 EDT Performed On: 06/28/2019 17:00 EDT by TOR ADAMES, RN Chart Check Powerplans Initiated/Discontinued as Appropriate : Yes All Active Orders Reviewed : Yes TOR ADAMES, RN - 06/28/2019 15:36 EDT documented in this encounter Plan of Treatment Not on file documented as of this encounter Visit Diagnoses Not on filedocumented in this encounter
--- OUTSIDE RECORDS SUMMARY | 2024-08-09 13:24 | XMS_ITS | Encounter Summary ---
Author Organization [employer] Address [address] [place] [address] Care Team Providers Care Slip Caster Name Role Phone Unavailable Primary Care Provider Unavailabl e Encounter Details Date Type Department Care Team (Late st Contact Info) Description 06/23/2019 Transcribed Document [facility] Family Medicine [facility] [place] [address] ProviderMariela MD [address] [place] [address] Social History Tobacco Use Types Packs/Day [...] Cerner Conversion Note - Historical Provider, - 06/23/2019 11:43 AM CDT Treatment Intervention, OT Entered On: 06/24/2019 12:40 EDT Performed On: 06/24/2019 8:49 EDT by CHAY MOESR OTR/Bartolo General Information, OT Visit Type, OT : Treatment Note Patient Orders : Order Date Order Ordering 06/20/2019 13:12 Occupational Therapy Evaluation and Treatme Ordered By: DONNA DRIVER MD-INT 06/21/2019 19:25 OT Evaluation and Treatment Ordered By: SOLOMON MCCRACKEN PA-C 06/21/2019 19:25 OT Treatment Instructions Ordered By: SOLOMON MCCRACKEN PA-C 06/23/2019 11:43 Occupational Therapy Additional Tx Ordered By: Active Diagnoses : 06/19/2019 12:00 Encephalopathy, unspecified 06/17/2019 12:00 Acute [...] insufficiency (chronic) (peripheral) Therapy Diagnosis, OT : Reduced mobility Admission Date : 06/16/2019 21:08 Personal Devices : Personal Devices Glasses Assistive Devices : Assistive Devices No Devices Recorded Precautions in Place : Fall prevention measures, Fall prevention measures, high risk Isolation Maintained : Contact CHAY MOSER OTR/L - 06/24/2019 12:31 EDT General Status Patient Received Status : Supine in bed Treatment Start Time : 06/24/2019 8:49 EDT Patient Left Status : Up in chair RN/PCT Informed Comment : RN ok'ed. Client agrees to tx. Treatment End Time : 06/24/2019 9:32 EDT Treatment Time : 43 Minute(s) Actual Treatment Time : 43 Minute(s) CHAY MOSER OTR/L - 06/24/2019 12:31 EDT Self Care/Home Management, OT Self Care/Home Management Comment, OT : Client completed toileting and hygiene post toileting with set-up A, using BSC, walker. CHAY MOSER OTR/L - 06/24/2019 12:31 EDT Functional Mobility Mobility Grid Supine to Sit : Rehab Moderate assistance Sit to Stand : Rehab Minimal assistance Bed to Chair : Rehab Minimal assistance (Comment: x2 for safety [CHAY MOSER OTR/Bartolo - 06/24/2019 12:31 EDT] ) CHAY MOSER OTR/L - 06/24/2019 12:31 EDT Cognitive Treatment, OT Orientation : Oriented x 4 CHAY MOSER VAHIDJake/Bartolo - 06/24/2019 12:31 EDT Education OT Occupational Therapy Education Grid Activity of Daily Living Training : Verbalizes understanding, Returns demonstration Functional Mobility Training : Verbalizes understanding, Returns demonstration Role of Occupational Therapy : Verbalizes understanding CHAY MOSER OTR/L - 06/24/2019 12:31 EDT Plan of Care, OT OT Tx Plan/Goals Established w Patient : Yes CHAY MOSER MARYPiedadBartolo - 06/24/2019 12:31 EDT Care Home Goals, OT Other LTG Grid Goal #1 Goal #2 Goal : Perform functional supine to sit transfer with min A x 2 to ease caregiver burden Perform ADL transfer with min A Date to Meet : 07/07/2019 EDT 07/07/2019 EDT Goal Status : Initial goal Initial goal Comment : mod A x 2 on 06/23 min A x 2 on 06/23 CHAY MOSER MARY/Bartolo - 06/24/2019 12:31 EDT CHAY MOSER VAHIDJake/Bartolo - 06/24/2019 12:31 EDT Treatment Note Subjective Comment : Client alert and cooperative Patient's Response to Treatment : Client with fair activity tolerance. Able to transfer bed to BSC with no shortness of breath; signs of fatigue: after transfer, requested to sit down, needed to recover. Additional Objective Information : Client completed transfer to BSC from bed with brace, SPICA, gait belt, walker, mod to min A x 2. Client requires verbal cues for the use of the walker. see self-care note for details. Assessment : Client progressing towards meeting goals, continues to benefit from OT services. CHAY MOSER MARY/Bartolo - 06/24/2019 12:31 EDT Pain Assessment Pain Score Pre-Intervention : 8 Pain Score During-Intervention : 8 Pain Score Post-Intervention. : 8 Pain Comment : Nsg notified after session. CHAY MOSER OTR/L - 06/24/2019 12:31 EDT Image 1 - Images currently included in the form version of this document have not been included in the text rendition version of the form. [facility] OT Charges OT Selfcare/Hm Mgmt Ea 15 Min : 3 CHAY MOSER OTR/L - 06/24/2019 12:31 EDT documented in this encounter Plan of Treatment Not on file documented as of this encounter Visit Diagnoses Not on filedocumented in this encounter
--- OUTSIDE RECORDS SUMMARY | 2024-08-09 13:24 | XMS_ITS | Encounter Summary ---
Author Organization [employer] Address [address] [place] [address] Care Team Providers Care Senior Gl Accountant Name Role Phone Unavailable Primary Care Provider Unavailabl e Encounter Details Date Type Department Care Team (Late st Contact Info) Description 07/08/2019 Transcribed Document [facility] [place] [address] [place] [address] ProviderMariela MD [address], [place] [phone] Social History Tobacco Use Types Packs/Day Years [...] Note - Historical ProviderMD - 07/08/2019 5:00 AM CDT Chart Check - Review Order Profile Entered On: 07/08/2019 5:23 EDT Performed On: 07/08/2019 5:00 EDT by Georgina Olivo RN Chart Check Powerplans Initiated/Discontinued as Appropriate : Yes All Active Orders Reviewed : Yes Georgina Olivo RN - 07/08/2019 5:23 EDT documented in this encounter Plan of Treatment Not on file documented as of this encounter Visit Diagnoses Not on filedocumented in this encounter
--- OUTSIDE RECORDS SUMMARY | 2024-08-09 13:24 | XMS_ITS | Encounter Summary ---
Author Organization [employer] Address [address] [place] [address] Care Team Providers Care Machine Oiler Name Role Phone Unavailable Primary Care Provider Unavailabl e Encounter Details Date Type Department Care Team (Late st Contact Info) Description 08/30/2018 Transcribed Document [facility] [place] [address] [place] [address] ProviderMariela MD [address] [place] [address] Social History Tobacco Use Types [...] Cerner Conversion Note - Historical ProviderMD - 08/30/2018 12:06 PM CDT UM Authorization Entered On: 08/30/2018 12:07 EDT Performed On: 08/30/2018 12:06 EDT by TIESHA AQUINO RN-Utilization Review Primary Insurance Authorization Authorization and Policy Numbers : Insurance 1 Health Plan: [facility] MEDICARE ADVANTAGE Policy Number: [id number] Authorization Number: [id number] Insurance Primary Name : [employer] medicare advantage [id number] Authorization Status-Primary : Admit approved Reference Number-Primary : [id number] Authorization Number-Primary : [id number] Authorized Service Begin Date-Primary : 08/22/2018 EDT Authorized Service End Date-Primary : 08/29/2018 EDT Authorization Comments-Primary : [facility] approved per website Historical Authorization Comments-Primary : Comment 1: Clinicals faxed to [facility] via [employer] (Jett Arroyo Mkt Lapping Machine Set Up Operator-Utilization Mgt 08/23/2018 09:50) TIESHA AQUINO RN-Utilization Review - 08/30/2018 12:06 EDT Electronically signed by Chantal [facility] Conversion Bindery Manager Cerner at 06/16/2022 8:17 PM CDT documented in this encounter Plan of Treatment Not on file documented as of this encounter Visit Diagnoses Not on filedocumented in this encounter
--- OUTSIDE RECORDS SUMMARY | 2024-08-09 13:24 | XMS_ITS | Encounter Summary ---
Author Organization [employer] Address [address] [place] [address] Care Team Providers Care Silk Screen Processor Name Role Phone Unavailable Primary Care Provider Unavailabl e Encounter Details Date Type Department Care Team (Late st Contact Info) Description 08/22/2020 Transcribed Document [facility] [place] Medicine [facility] [place] [address] ProviderMariela MD [address] [place] [address] Social History Tobacco Use Types [...] Conversion Note - Historical ProviderMD - 08/22/2020 11:15 AM CDT Spiritual Care Short Form Entered On: 08/22/2020 13:11 EDT Performed On: 08/22/2020 11:15 EDT by JASON DÍAZ Chaplain General Information, Spiritual Care Spiritual Care Referred by : Aeronautical Engineering Teacher initiated Reason for Visit : Initial Ministry Provided to : Patient Intervention/Comment/Summary Points : Visited patient in room. She shared about her knees and the surgery she has had. Patient is hopeful that the goalsof the surgery are achieved, but said she won't know for several weeks because it will take time to recover fromthe surgery. Although it is not guaranteed she will walk again, she saw this surgery as her best chance and is willing to go through what it takes to stay out of a wheelchair permanently. Patient is supported by her sons and seems to be coping fairly well with her situation. Invited her to request a assistant guest services manager for further visits if she wants. Spiritual/Emotional Acuity : Low Spiritual Framework : Unknown Presybeterian Preference : Tenriism, Unknown JASON DÍAZ, Aeronautical Engineering Teacher - 08/22/2020 13:08 EDT Electronically signed by Chantal [facility] Conversion Interactive Developer Cerner at 06/16/2022 8:13 PM CDT documented in this encounter Plan of Treatment Not on file documented as of this encounter Visit Diagnoses Not on filedocumented in this encounter
--- OUTSIDE RECORDS SUMMARY | 2024-08-09 13:24 | XMS_ITS | Encounter Summary ---
Author Organization [employer] Address [address] [place] [address] Care Team Providers Care Architectural Drafting Instructor Name Role Phone Unavailable Primary Care Provider Unavailabl e Encounter Details Date Type Department Care Team (Late st Contact Info) Description 07/18/2019 Transcribed Document [facility] [place] Family Medicine [address] [place] [address] ProviderMariela MD [address] [place] [address] Social History Tobacco Use Types [...] Conversion Note - Historical ProviderMD - 07/18/2019 2:00 AM CDT Etl Consultant Details Entered On: 07/18/2019 2:50 EDT Performed On: 07/18/2019 2:00 EDT by Kena Ling RN Order Details Transport Mode Order Detail : Stretcher/Gurney Isolation Precautions Order Detail : Standard Precautions Order Detail : N/A IV Order Detail : 0 Oxygen Order Detail : 0 Nurse Collect Order Detail : 1 Lift/Transfer : Moderate assist Central Line Order Detail : Yes Room Service : Appropriate Arterial Line : No Kena Ling RN - 07/18/2019 2:49 EDT documented in this encounter Plan of Treatment Not on file documented as of this encounter Visit Diagnoses Not on filedocumented in this encounter
--- OUTSIDE RECORDS SUMMARY | 2024-08-09 13:24 | XMS_ITS | Encounter Summary ---
Author Organization [employer] Address [address] [place] [address] Care Team Providers Care Clock Assembler Name Role Phone Unavailable Primary Care Provider Unavailabl e Encounter Details Date Type Department Care Team (Late st Contact Info) Description 07/13/2019 Transcribed Document [facility] [place] [address] [place] [address] ProviderMariela MD [address] [place] [address] Social History Tobacco Use Types Packs/Day Years [...] Conversion Note - Historical ProviderMD - 07/13/2019 9:00 PM CDT Pain Assessment Entered On: 07/13/2019 23:30 EDT Performed On: 07/13/2019 21:41 EDT by Georgina Olivo RN Intervention Information: indomethacin Performed by Georgina Olivo RN on 07/13/2019 20:41:00 EDT indomethacin,25mg Oral Pain Assessment Pain Assessment : Follow-up assessment Pain Improved by Intervention : Yes Georgina Olivo RN - 07/13/2019 23:29 EDT Electronically signed by Maureen Cornejo Conversion Airflight Attendants Supervisor Cerner at 06/16/2022 8:02 PM CDT documented in this encounter Plan of Treatment Not on file documented as of this encounter Visit Diagnoses Not on filedocumented in this encounter
--- OUTSIDE RECORDS SUMMARY | 2024-08-09 13:24 | XMS_ITS | Encounter Summary ---
Author Organization [employer] Address [address] [place] [id number] Care Team Providers Care Education Program Associate Name Role Phone Unavailable Primary Care Provider Unavailabl e Encounter Details Date Type Department Care Team (Late st Contact Info) Description 07/19/2019 Transcribed Document [facility] [place] [facility] [place] [address] ProviderMariela MD [facility] [place] [id number] Social History Tobacco Use Types Packs/Day Years [...] Conversion Note - Mariela ProviderMD - 07/19/2019 11:46 AM CDT Patient: SOFIA GILL Age: 79 [...] Status post Acute kidney injury Author: DONNA JAFFE MD-INT Date of admission 06/26/2019 Date of discharge 07/19/2019 Orthopedic surgeon, Georgia Saenz M.D. Infectious disease, Jordan Snyder M.D. and Tyrell Stock M.D. Admitting and discharging physician, [facility] medicine, Dr. Owens, Donna Jaffe M.D. 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 2???group B Streptococcus agalactiae bacteremia 3???sepsis 4???left knee cellulitis 5???protein calorie malnutrition 6???hypoalbuminemia 7???acute kidney injury resolved on discharge 8???gouty arthritis improved 9???status post toxic and metabolic encephalopathy 10???acute blood loss anemia status post transfusion with 3 units of packed RBCs 11???electrolyte disturbance 12???elevated inflammatory markers improved on discharge 13???left knee pain and swelling 14???osteoarthritis 15???hypertension 16???hypothyroidism 17???hypercholesterolemia 18???cardiac murmur 19???morbid obesity with BMI of 43.7 20 SHERRY 21???chronic venous insufficiency Admitting diagnosis: 1???sepsis ???Bacteremia due to group B streptococcus agalactiae 3???toxic and metabolic encephalopathy 4???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 morbid obesity with BMI of 40.9 21???chronic venous insufficiency Brief history of present illness and course during her hospital stay: 79 years old white female with a complicated medical history as listed below in addition to multiple left knee surgeries and including has left total knee arthroplasty was admitted to [facility] with left total knee arthroplasty infection. Blood culture as well as wound cultures positive for group B streptococcus. Patient also had elevated inflammatory markers, pro-calcitonin, in addition to leukocytosis. Patient initially started on vancomycin and Rocephin IV and then infectious disease was consulted and antibiotics were modified according to their recommendation in 2 Rocephin 2 g IV daily. Patient had different surgical options including left above-knee amputation versus revision of her knee arthroplasty. Patient was then taken to the OR and had left total knee arthroplasty revision by Dr. Saenz. Patient was then [facility] her care. During her hospitalization patient was seen by the following services: 1???PT/OT 2???dietitian 3???wound care nurse 4???infectious disease Problem list: 1??? sepsis, group B Streptococcus bacteremia, left total knee arthroplasty infection status post revision, patient continue on IV antibiotics as recommended by Dr. Snyder from infectious disease and has to continue for a total of 6-8 weeks of antibiotics. 2???postoperative acute blood loss anemia, patient had transfusion of 2 units of packed RBCs during her hospital stay no tach. He is to close monitoring her H&H. 3???hypoalbuminemia most probably secondary to malnutrition partly and partially because of her infection. Patient had albumin infusion followed by diuresis 4???anasarca secondary to #3 and as I mentioned patient had albumin infusion followed by diuresis. Ex 5???moderate protein calorie malnutrition, patient was on nutritional supplement with ensure 3 times a day with meals and I recommended to continue after her discharge 6???acute gouty arthritis, patient was complaining of right ankle pain. Uric acid came back 5.6 and her symptoms improved and resolved completely with Indocin 25 mg oral 3 times a day and was discontinued on discharge protein in consideration not to deteriorate her renal function. Extended 7???electrolyte disturbance with hyponatremia and hypokalemia, multifactorial, resolved completely. 8???benign essential hypertension, all blood pressure medications were on hold for systolic blood pressure less than 130 and resumed when blood pressure became stabilized 9???hypercholesterolemia, Crestor 10 mg was given daily 10???hypothyroidism, Synthroid 100 ??g was given daily 11???GERD, Protonix 40 mg was given daily During her hospitalization, patient was on pain medication as as per Dr. Saenz recommendations and her pain is well controlled. Also she is on DVT prophylaxis as per Dr. Saenz protocol. She didn't have any trouble with urination and her urine output was adequate. She was on multiple bowel regimen and she had had normal bowel movement. Today, patient is awake alert cooperative responsive under no acute distress. Patient is stable to be transferred to another lower level of care to detention facility. Basic Information Review of Systems Constitutional: No fever, No weakness, No fatigue. Eye: No recent visual problem, No double vision, No visual disturbances. Ear/Nose/Mouth/Throat: No nasal congestion, No sore throat. Respiratory: No shortness of breath, No cough, No wheezing. Cardiovascular: No chest pain, No tachycardia. Gastrointestinal: No nausea, No vomiting. Genitourinary: Negative. Musculoskeletal: Negative. Integumentary: wound stable covered w. clean dressing, No rash, No pruritus. Neurologic: Alert and [...] 0.9% 100 mL 2 Gram, IV Piggyback, [id number] cyanocobalamin 1,000 mcg tab 5,000 mcg 5 [...] Oral, Q4H fluticasone 0.05% nasal spray 2 Bon Aqua, Nostrils Both, BID magnesium hydroxide 8% liq [...] Sleep apnea Physical Examination VS/Measurements Vital Measurements 07/19/2019 7:00 EDT Systolic Blood Pressure 117 mmHg Diastolic Blood Pressure 42 mmHg LOW Temperature Source Axillary Temperature Mode Fahrenheit Temperature, Fahrenheit 97.2 Deg F Clinical Temperature, C 36.2 Deg C Heart Rate Monitored 88 bpm Respiratory Rate 18 Breaths/Min Oxygen Saturation 97 % General: Alert [...] mood & affect. Review / Management Results review Condition: Stable. Discharge Plan Discharge Summary Plan Discharge Status: stable. Orders Order Profile (Selected) Inpatient Orders Ordered Discharge Notification Pharmacy: Start: 07/19/19 11:43:23 EDT Discharge: Start: T;N, Discharge to: Alf unit/facility. Diagnosis Chronic venous insufficiency - Discharge, Medical. Protein calorie malnutrition, severe - Discharge, Medical. Osteoarthritis - Discharge, Medical. Sepsis - Discharge, Medical. Hypercholesterolemia - Discharge, Medical. Hypoalbuminemia due to protein-calorie malnutrition - Discharge, Medical. Obstructive sleep apnea - Discharge, Medical. Morbid obesity with BMI of 40.0-44.9, adult - Discharge, Medical. Left knee periprosthetic infection status post I&D, debridement, washout and poly-exchange culture positive for group B strep agalactiae - Discharge, Medical. Hypothyroidism - Discharge, Medical. GERD (gastroesophageal reflux disease) - Discharge, Medical. Hypertension - Discharge, Medical. Cellulitis Of left knee - Discharge, Medical. Murmur, cardiac - Discharge, Medical. BacteremiaDue to group B streptococcus agalactiae - Discharge, Medical. Acute blood loss anemia status post transfusion of 3 units of packed RBCs - Discharge, Medical. Status post Acute kidney injury - Admitting, Medical. Course Improving. Stable. Plan/ pt is HD & CLINICALLY STABLE AFEBRILE OK TO D/C TO [facility] FACILITY. Consultants agree with for her discharge. Patient is stable for discharge.. Orders Order Profile (Selected) Prescriptions Prescribed Milton 7.5 mg-325 mg oral tablet: 1 Tab, Oral, Q4H, X 3 Day(s), # 7 Tab, 0 Refill(s), other reason (Rx) cefTRIAXone 2 g intravenous injection: 2 Gram, IntraVENous, Daily, X 14 Day(s), # 1 Kit, 0 Refill(s), other reason (Rx) gabapentin 300 mg oral capsule: 1 Cap, Oral, Cap, At Bedtime, # 3 Cap, 0 Refill(s), other reason (Rx) Documented Medications Documented Aspir 81 oral delayed release tablet: 1 Tab, Oral, Daily, 0 Refill(s) CoQ10: 1 Tab, Oral, Daily, 0 Refill(s) Crestor 10 mg oral tablet: 1 Tab, Oral, Tab, At Bedtime, # 30 Tab, 0 Refill(s) Cymbalta 60 mg oral delayed release capsule: 1 Cap, Oral, DR Cap, Daily, (do not crush or chew), # 30 Cap, 0 Refill(s) Florastor 250 mg oral capsule: 1 Cap, Oral, Cap, Daily, 0 Refill(s) Multiple Vitamins oral capsule: Oral, Cap, Daily, 0 Refill(s) Protonix 40 mg oral delayed release tablet: 1 Tab, Oral, EC Tab, Daily, 0 Refill(s) Senokot S: 2 Tab, Oral, Tab, At Bedtime, 0 Refill(s) Synthroid 100 mcg (0.1 mg) oral tablet: 1 Tab, Oral, Tab, Daily, 0 Refill(s) cyanocobalamin 5000 mcg oral tablet, extended release: 1 Tab, Oral, Daily, 0 Refill(s) docusate: 100 mg, Oral, Cap, Daily, 0 Refill(s) fluticasone 50 mcg/inh nasal spray: 2 Bon Aqua, Nostrils Both, Bon Aqua, BID, PRN Allergies, 0 Refill(s) lisinopril 10 mg oral tablet: 1 Tab, Oral, Tab, Daily, 0 Refill(s) loratadine 10 mg oral tablet: 1 Tab, Oral, Tab, Daily, 0 Refill(s) magnesium oxide 250 mg oral tablet: 2 Tab, Oral, BID, gets over the counter, 0 Refill(s) potassium chloride 20 mEq oral tablet, extended release: 1 Tab, Oral, BID, 0 Refill(s) warfarin 2 mg oral tablet: 1 Tab, Oral, Tab, Daily, 0 Refill(s). Impression and Plan twt 65 mn documented in this encounter Plan of Treatment Not on file documented as of this encounter Visit Diagnoses Not on filedocumented in this encounter
--- OUTSIDE RECORDS SUMMARY | 2024-08-09 13:24 | XMS_ITS | Encounter Summary ---
Author Organization [employer] Address [address] [place] [id number] Care Team Providers Care Glove Stitcher Name Role Phone Unavailable Primary Care Provider Unavailabl e Encounter Details Date Type Department Care Team (Late st Contact Info) Description 06/27/2019 Transcribed Document [facility] [place] [address] [place] [address] ProviderMariela MD [address] [place] [id number] Social History Tobacco Use Types Packs/Day Years [...] Conversion Note - Historical ProviderMD - 06/27/2019 5:00 AM CDT Chart Check - Review Order Profile Entered On: 06/27/2019 3:57 EDT Performed On: 06/27/2019 5:00 EDT by Bibi Gallagher RN Chart Check Powerplans Initiated/Discontinued as Appropriate : Yes All Active Orders Reviewed : Yes iBbi Gallagher, EDDIE - 06/27/2019 3:57 EDT Electronically signed by Chantal Cox [employer] Worker [employer]ner at 06/16/2022 8:28 PM CDT documented in this encounter Plan of Treatment Not on file documented as of this encounter Visit Diagnoses Not on filedocumented in this encounter
--- OUTSIDE RECORDS SUMMARY | 2024-08-09 13:24 | XMS_ITS | Encounter Summary ---
Author Organization [employer] Address [address] [place] [id number] Care Team Providers Care Lacrosse Player Name Role Phone Unavailable Primary Care Provider Unavailabl e Encounter Details Date Type Department Care Team (Late st Contact Info) Description 06/16/2019 Transcribed Document [facility] Family Medicine [address] [place] [address] ProviderMariela MD [address] [place] [address] Social History Tobacco Use Types Packs/Day Years [...] Consult Phone Call Documentation Entered On: 06/17/2019 8:26 EDT Performed On: 06/16/2019 21:27 EDT by KARY AQUINO Phone Call for Consults Physician Requested for Consult : LENORA SANTANA MD Provider Service Notified Name : Infectious Disease Consult, Additional Information : notified of consult KARY AQUINO - 06/17/2019 8:26 EDT documented in this encounter Plan of Treatment Not on file documented as of this encounter Visit Diagnoses Not on filedocumented in this encounter
--- OUTSIDE RECORDS SUMMARY | 2024-08-09 13:24 | XMS_ITS | Encounter Summary ---
Author Organization [employer] Address [address] [place] [address] Care Team Providers Care Abrasive Worker Name Role Phone Unavailable Primary Care Provider Unavailabl e Encounter Details Date Type Department Care Team (Late st Contact Info) Description 06/24/2019 Transcribed Document [facility] [place] [facility] [place] [address] ProviderMariela MD [facility] [place] [address] Social History Tobacco Use Types [...] Conversion Note - Historical ProviderMD - 06/24/2019 3:49 PM CDT Patient: SOFIA GILL Age: 79 years Sex: Female : 1940 Associated Diagnoses: None Author: ARA JONES MD-INF ID Progress Note CC: Left knee pain Current antimicrobial therapy: Rocephin IV Subjective: Patient underwent aggressive irrigation debridement with no fevers today and HD stable and pain improving. Objective Vitals Signs (last 24 hrs) Last Charted Minimum Maximum Temp 98.4 (JUN 23 14:08) 97.9 (JUN 22 17:52) 98.4 (JUN 22 21:16) Mon HR 78 (JUN 23 14:08) 72 (JUN 23 10:00) 127 (JUN 23 01:00) Resp Rate 14 (JUN 23 14:08) 14 (JUN 23 14:08) 18 (JUN 23 05:18) SBP 120 (JUN 23 14:08) 114 (JUN 22 17:52) 125 (JUN 22 21:16) DBP L 52 (JUN 23 14:08) L 44 (JUN 23 10:00) L 52 (JUN 23 14:08) MAP 68 (JUN 23 14:08) 59 (JUN 22 17:52) 68 (JUN 23 14:08) SpO2 99 (JUN 23 14:08) L 90 (JUN 23 01:00) 100 (JUN 22 17:52) Physical Examination: Gen: Alert, nervous about surgery [...] Labs:Labs (Last four charted values) WBC H 15.9 (JUN 23) H 20.4 (JUN 22) H 24.5 (JUN 21) H 22.8 (JUN 19) HB L 9.0 (JUN 23) L 9.2 (JUN 22) L 7.5 (JUN 21) L 7.5 (JUN 21) HCT L 28.6 (JUN 23) L 29.0 (JUN 22) L 23.7 (JUN 21) L 23.7 (JUN 21) Plt H 413 (JUN 23) H 403 (JUN 22) H 416 (JUN 21) H 389 (JUN 19) Na 139 (JUN 23) L 134 (JUN 22) 136 (JUN 21) L 133 (JUN 20) K 4.5 (JUN 23) 4.8 (JUN 22) 4.5 (JUN 21) 4.4 (JUN 20) Cl 109 (JUN 23) 103 (JUN 22) 103 (JUN 21) L 101 (JUN 20) CO2 24 (JUN 23) 28 (JUN 22) 27 (JUN 21) 25 (JUN 20) BUN 16 (JUN 23) H 28 (JUN 22) 21 (JUN 21) H 23 (JUN 20) Cr 0.63 (JUN 23) 0.97 (JUN 22) 0.63 (JUN 21) 0.66 (JUN 20) Glu R 104 (JUN 23) H 107 (JUN 22) 101 (JUN 21) 93 (JUN 20) Ca L 7.0 (JUN 23) L 7.4 (JUN 22) L 7.1 (JUN 21) L 7.9 (JUN 20) Lactic 1.1 (JUN 16) PT 11.4 (JUN 23) 11.5 (JUN 22) H 12.4 (JUN 20) INR 1.1 (JUN 23) 1.1 (JUN 22) H 1.2 (JUN 20) AST 16 (JUN 23) 20 (JUN 22) 25 (JUN 21) 27 (JUN 19) ALT 16 (JUN 23) 16 (JUN 22) 16 (JUN 21) 21 (JUN 19) ALK P 77 (JUN 23) 92 (JUN 22) 103 (JUN 21) H 204 (JUN 19) T Bili 0.2 (JUN 23) 0.2 (JUN 22) 0.2 (JUN 21) 0.3 (JUN 19) PTN L 4.6 (JUN 23) L 4.8 (JUN 22) L 4.4 (JUN 21) L 5.3 (JUN 19) ALB L 1.5 (JUN 23) L 1.6 (JUN 22) L 1.4 (JUN 21) L 1.7 (JUN 19) Micro: [facility]: 06/15 [facility] Blood cultures positive for group B strep and 2/2 bottles SJE: 06/16 fluid aspiration of left knee shows 118,150 white blood cells, GPC 06/16 repeat blood cultures with Group B Strep 06/16 MRSA surveillance culture and pro/pending 06/16 Urine culture in process/pending Rad: Radiology Results (Last 48 hours) [id number] -- 06/16/2019 21:08 CR Knee 1 or [...] and dictated by Dr. Justice Camacho.Transcribed by LEFTY Armstrong have personally viewed, interpreted and dictated the [...] PICC line in lifelong oral suppression - wbc down and no fevers continue manager terminal abx will monitor Electronically signed by Maureen Cornejo Conversion Project Engineer [employer] at 06/16/2022 8:12 PM CDT documented in this encounter Plan of Treatment Not on file documented as of this encounter Visit Diagnoses Not on filedocumented in this encounter
--- OUTSIDE RECORDS SUMMARY | 2024-08-09 13:24 | XMS_ITS | Encounter Summary ---
Author Organization [employer] Address [address] [place] [address] Care Team Providers Care Can Solderer Name Role Phone Unavailable Primary Care Provider Unavailabl e Encounter Details Date Type Department Care Team (Late st Contact Info) Description 08/29/2018 Transcribed Document [facility] [place] [facility] [place] [facility] [address] [place] [address] ProviderMariela MD [address] [place] [address] Social History Tobacco Use Types [...] Conversion Note - Mariela ProviderMD - 08/29/2018 5:25 [place] [address] SOFIA GILL :1940 Visit Time:08/22/2018 Your Visit Summary Your Care Team Admitting Physician - NIMO EPPS MD-FRANCKT Attending Physician - NIMO EPPS MD-FRANCKT Primary Care Physician - NILA CHO NP-JASMINE Referring Physician - NIMO EPPS MD-ORT Your Diagnosis Status post total right knee replacement Unilateral primary osteoarthritis, right knee, Unilateral primary osteoarthritis, right knee These Are Your Goals wants to be able to walk again. - Not met (Barriers: Pain) Discharge Vitals Heart Rate (Monitored) 90 Respiratory Rate 15 Blood Pressure 121/80 What to do next Instructions From Your Care Team INSURANCE APPROVAL OBTAINED FOR DISCHARGE TO [facility], CALL REPORT TO [phone] FAX D/C SUMMARY TO [phone] Follow-Up Appointments Follow Up with SOLOMON MCCRACKEN PA-C When 09/08/2018 09:00 AM EDT Comments Appointment has been made Where: Follow Up with [facility] When Where: [facility] [place] [address]- Medications What How Much When Instructions Next Dose bisacodyl (Dulcolax Laxative 10 mg rectal suppository) 1 Suppository(ies) Rectal One Time Order as needed for Constipation cephalexin (Keflex 250 mg oral capsule) 2 Capsule(s) Oral Interval Every 6 Hours Duration: 7 Day(s) Printed Prescription cephalexin (Keflex 500 mg oral capsule) 1 Capsule(s) Oral Three Times A Day Duration: 7 Day(s) Printed Prescription diphenhydrAMINE (Benadryl 25 mg oral tablet) 1 Tablet(s) Oral Every 4 Hours as needed for Itching docusate (Colace 100 mg oral capsule) 1 Capsule(s) Oral Two Times A Day gabapentin (gabapentin 300 mg oral capsule) 1 Capsule(s) Oral At Bedtime as needed for Insomnia Printed Prescription oxyCODONE (oxyCODONE 5 mg oral tablet) 1 Tablet(s) Oral Every 4 Hours as needed for Pain (Moderate 4-6) Duration: 10 Day(s) Printed Prescription oxyCODONE (oxyCODONE 5 mg oral tablet) 2 Tablet(s) Oral Every 4 Hours as needed for Pain (Severe 7-10) Duration: 10 Day(s) Printed Prescription furosemide (Lasix 40 mg oral tablet) 1 Tablet(s) Oral Every Day traMADol (traMADol 50 mg oral tablet) 2 Tablet(s) Oral Every 6 Hours as needed for Pain (Mild 1-3) Printed Prescription albuterol (Ventolin HFA 90 mcg/ inh inhalation aerosol) 1 Puff(s) Inhalation Four Times A Day as needed for Shortness of Breath aspirin (aspirin 81 mg oral delayed release tablet) 1 Tablet(s) Oral Every Day Printed Prescription aspirin (aspirin 81 mg oral tablet) 1 Tablet(s) Oral Every Day calcium-vitamin D (Caltrate 600 + D) 1 Tablet(s) Oral Two Times A Day cyanocobalamin (cyanocobalamin 5000 mcg oral tablet, extended release) 1 Tablet(s) Oral Every Day diclofenac 75 Milligram(s) Oral Two Times A Day DULoxetine (Cymbalta 60 mg oral delayed release capsule) 1 Capsule(s) Oral Every Day (do not crush or chew) fluticasone nasal (fluticasone 50 mcg/ inh nasal spray) 2 [place](s) Nostrils Both Two Times A Day as needed for Allergies levocetirizine (levocetirizine 5 mg oral tablet) 1 Tablet(s) Oral Every Evening levothyroxine (Synthroid 100 mcg (0.1 mg) oral tablet) 1 Tablet(s) Oral Every Day lisinopril (lisinopril 10 mg oral tablet) 1 Tablet(s) Oral Every Day magnesium citrate (magnesium citrate 100 mg oral tablet) 1 Tablet(s) Oral Two Times A Day Non Formulary (Non Formulary Medication) 1 Capsule(s) Oral Every Day Turmeric Curcumin 1 capsule PO daily polyethylene glycol 3350 (MiraLax oral powder for reconstitution) 17 Gram(s) Oral Every Day dissolve in water or juice potassium chloride (potassium chloride 20 mEq oral tablet, extended release) 1 Tablet(s) Oral Two Times A Day rosuvastatin (Crestor 10 mg oral tablet) 1 Tablet(s) Oral At Bedtime ubiquinone (CoQ10) 1 Tablet(s) Oral Every Day Take your medications faithfully. Do NOT skip [...] medications per your retail pharmacy guidance. Allergies Bextra (Itching) Latex (Itching) Mobic (Itching) Naprosyn [...] this will decrease swelling ??? Continue doing blue foam and meyer basin [...] no longer using the walker Other: ??? Take aspirin 81mg two times daily Remove morena bandage and cotton on 08/24 and cover incision with white gauze squares and tube netting then put on compression stocking. Change white gauze squares daily and tube netting as needed for 5 to 7 days. If there is any drainage after 7 days call the office and let them know. ??? Wear compression stockings on BOTH LEGS for 6 weeks removing once daily to inspect skin and shower ??? Use ice therapy for 20-30 minutes at a time and leave off for 20-30 minutes at a time. Always keep a towel or cloth between the ice pack and your skin ??? Continue to use Incentive Spirometer 10 times an hour while awake for one month to help prevent pneumonia Contact a health care provider if: ??? [...] Barley. Bulgur wheat. Millet. Bran muffins. Popcorn. [place] wafer crackers. ??? Vegetables Sweet potatoes. Spinach. Kale. Artichokes. Cabbage. Broccoli. Green peas. Carrots. Squash. ??? Fruits Berries. Pears. Apples. Oranges. Avocados. Prunes and raisins. Dried figs. ??? Meats and Other Protein Sources [place], kidney, call, and soy beans. Split peas. [...] gray has 11 g of protein. ??? [place] seeds ??? 1 oz has 5.5 g [...] floor. ??? Place frequently used items in woej-qs-glmtm places ??? Keep electrical cables out of [...] ? Using the bathroom. ? Using household community nutrition educator or toxic chemicals. ? Touching or taking [...] your foot or ankle. ? Increased pain. aspirin (oral) ( pir in) Arthritis Pain, Aspir 81, Aspir-Low, Lisa Childrens Aspirin, Durlaza, Ecotrin, Ecpirin, Fasprin, Halfprin, Miniprin What is the most important information [...] What is aspirin? Aspirin is a salicylate (qr-LRN-zj-ate). It works by reducing substances in the body that cause pain, fever, and inflammation. Aspirin is used to treat pain, and reduce [...] teenager with a fever, flu symptoms, or chicken pox. Aspirin can cause Gilberto's syndrome, a serious and sometimes fatal condition in children. You should not use aspirin if you are allergic to it, or if you have: ? a recent history of stomach or intestinal bleeding; ?? a bleeding disorder such as hemophilia; or ?? if you have ever had an asthma attack or severe allergic reaction after taking aspirin or an NSAID (non-steroidal anti-inflammatory drug). Tell your doctor if you have ever had: ? asthma or seasonal allergies; ?? stomach ulcers; ?? liver disease; ?? kidney disease; ?? a bleeding or blood clotting disorder; ?? gout; or ?? heart disease, high blood pressure, or congestive heart failure. Taking aspirin during late may cause bleeding in the mother or the baby during delivery. Tell your doctor if you are or plan to become . You should not breast-feed while using this medicine. How should I take aspirin? Use exactly as directed on the label, or as prescribed by your doctor. Take with food if aspirin upsets your stomach. Do not crush, chew, break, or open an enteric-coated or delayed-release pill. Swallow it whole. The chewable tablet form of aspirin must be chewed before swallowing. If you use the orally disintegrating tablet or the dispersible tablet, follow all dosing instructions provided with your medicine. If you need surgery, tell your surgeon you currently use this medicine. You may need to stop for a short time. Do not take this medicine if you smell a strong vinegar odor [...] line at . Overdose symptoms may include temporary hearing loss, seizure (convulsions), or coma. What should I avoid while taking aspirin? Avoid alcohol. Heavy drinking can increase your risk of stomach bleeding. If you are taking aspirin to prevent heart attack or stroke, avoid also taking ibuprofen (Advil, Motrin). Ibuprofen may make aspirin less effective. If you must use both medications, take the ibuprofen at least 8 hours before or 30 minutes after you take the aspirin (non-enteric coated form). Ask a doctor or pharmacist before using [...] your doctor at once if you have: ? ringing in your ears, confusion, hallucinations, rapid breathing, seizure (convulsions); ?? severe nausea, vomiting, or stomach pain; ?? bloody or tarry stools, coughing up blood or vomit that looks like coffee grounds; ?? fever lasting longer than 3 days; or ?? swelling, or pain lasting longer than 10 days. Common side effects may include: ? upset stomach, heartburn; ?? drowsiness; or ?? mild headache. This is not a complete list of side effects and others may occur. Call your doctor for medical advice about side effects. You may report side effects to FDA at 6-864-VLV-0881. What other drugs will affect aspirin? Ask your doctor before using aspirin if you take an antidepressant. Taking certain antidepressants with aspirin may cause you to bruise or bleed easily. Ask a doctor or pharmacist before using aspirin with any other medications, especially: ? a blood thinner (warfarin, Coumadin, Jantoven), or other medication used to prevent blood clots; or ?? other salicylates such as Nuprin Backache Caplet, Kaopectate, KneeRelief, Pamprin Cramp Formula, Pepto-Bismol, Tricosal, Trilisate, and others. This list is not complete. Other drugs may affect aspirin, including prescription and ntfa-mtm-wzvoxzu medicines, vitamins, and herbal products. Not all [...] to ensure that the information provided by [employer]') is accurate, up-to-date, and complete, but no guarantee is made to that effect. Drug information contained herein may be time sensitive. [employer] information has been compiled for use by healthcare practitioners and consumers in the [place] and therefore [employer] does not warrant that uses outside of the [place] are appropriate, unless specifically indicated otherwise. [employer] drug information does not endorse drugs, diagnose patients or recommend therapy. [employer] drug information is an informational resource designed [...] effective or appropriate for any given patient. [employer] does not assume any responsibility for any aspect of healthcare administered with the aid of information [employer] provides. The information contained herein is not intended to cover all possible uses, directions, precautions, warnings, drug interactions, allergic reactions, or adverse effects. If you have questions about the drugs you are taking, check with your doctor, nurse or pharmacist. Copyright 7578-7666 [employer] Version: 15.. Revision Date: 05/31/2017.gabapentin (GA ba PEN tin) Gralise, Horizant, Neurontin What is the most important information I should know about gabapentin? Some people have thoughts about suicide while taking this medicine. Children taking gabapentin may have behavior changes. Stay alert to changes in your mood or symptoms. Report any new or worsening symptoms to your doctor. Do not stop using gabapentin suddenly, even if you feel fine. What is gabapentin? Gabapentin is an anti-epileptic drug, also called an anticonvulsant. It affects chemicals and nerves in the body that are involved in the cause of seizures and some types of pain. Gabapentin is used in adults to treat nerve pain caused by herpes virus or shingles (herpes zoster). The Horizant brand of gabapentin is also used to treat restless legs syndrome (RLS). The Neurontin brand of gabapentin is also used to treat seizures in adults and children who are at least 3 years old. Use only the brand and form of gabapentin your doctor has prescribed. Check your medicine each time you get a refill to make sure you receive the correct form. Gabapentin may also be used for purposes not listed in this medication guide. What should I discuss with my healthcare provider before taking gabapentin? You should not use gabapentin if you are allergic to it. To make sure gabapentin is safe for you, tell your doctor if you have ever had: ? kidney disease (or if you are on dialysis); ?? diabetes; ?? depression, a mood disorder, or suicidal thoughts or actions; ?? a seizure (unless you take gabapentin to treat seizures); ?? liver disease; ?? heart disease; or ?? (for patients with RLS) if you are a day sleeper or work a ski edge painter. Some people have thoughts about suicide while taking this medicine. Your doctor should check your progress at regular visits. Your family or other caregivers should also be alert to changes in your mood or symptoms. It is not known whether this medicine will harm an unborn baby. Tell your doctor if you are or plan to become . Seizure control is very important during , and having a seizure could harm both mother and baby. Do not start or stop taking gabapentin for seizures without your doctor's advice, and tell your doctor right away if you become . Gabapentin can pass into breast milk, but effects on the nursing baby are not known. Tell your doctor if you are breast-feeding. How should I take gabapentin? Follow all directions on your prescription label. Do not take this medicine in larger or smaller amounts or for longer than recommended. The Horizant brand of gabapentin should not be taken during the day. For best results, take Horizant with food at about 5:00 in the evening. Both Gralise and Horizant should be taken with food. Neurontin can be taken with or without food. If you break a Neurontin tablet and take only half of it, take the other half at your next dose. Any tablet that has been broken should be used as soon as possible or within a few days. Do not crush, chew, or break an extended-release tablet. Swallow it whole. Measure liquid medicine with the dosing syringe provided, or with a special dose-measuring spoon or medicine cup. If you do not have a dose-measuring device, ask your pharmacist for one. If your doctor changes your brand, strength, or type of gabapentin, your dosage needs may change. Ask your pharmacist if you have any questions about the new kind of gabapentin you receive at the pharmacy. Do not stop using gabapentin suddenly, even if you feel fine. Stopping suddenly may cause increased seizures. Follow your doctor's instructions about tapering your dose. Wear a medical alert tag or carry an ID card stating that you have seizures. Any medical care provider who treats you should know that you take seizure medication. This medicine can cause unusual results with certain medical tests. Tell any doctor who treats you that you are using gabapentin. Store gabapentin tablets and capsules at room temperature away from light and moisture. Store the liquid medicine in the refrigerator. Do not freeze. What happens if I miss a dose? Take the missed dose as soon as you remember. Be sure to take the medicine with food. Skip the missed dose if it is almost time for your next scheduled dose. Do not take extra medicine to make up the missed dose. What happens if I overdose? Seek emergency medical attention or call the Poison Help line at . What should I avoid while taking gabapentin? This medicine may impair your thinking or reactions. Be careful if you drive or do anything that requires you to be alert. Avoid taking an antacid within 2 hours before or after you take gabapentin. Antacids can make it harder for your body to absorb gabapentin. Drinking alcohol with this medicine can cause side effects. What are the possible side effects of gabapentin? Get emergency medical help if you have signs of an allergic reaction: hives; difficult breathing; swelling of your face, lips, tongue, or throat. Seek medical treatment if you have a serious drug reaction that can affect many parts of your body. Symptoms may include: skin rash, fever, swollen glands, flu-like symptoms, muscle aches, severe weakness, unusual bruising, or yellowing of your skin or eyes. This reaction may occur several weeks after you began using gabapentin. Report any new or worsening symptoms to your doctor, such as: mood or behavior changes, anxiety, panic attacks, trouble sleeping, or if you feel impulsive, irritable, agitated, hostile, aggressive, restless, hyperactive (mentally or physically), depressed, or have thoughts about suicide or hurting yourself. Call your doctor at once if you have: ? increased seizures; ?? severe weakness or tiredness; ?? problems with balance or muscle movement; ?? upper stomach pain; ?? chest pain, new or worsening cough with fever, trouble breathing; ?? severe tingling or numbness; ?? rapid eye movement; or ?? kidney problems--little or no urination, painful or difficult urination, swelling in your feet or ankles. Some side effects are more likely in children taking gabapentin. Contact your doctor if the child taking this medicine has any of the following side effects: ? changes in behavior; ?? memory problems; ?? trouble concentrating; or ?? acting restless, hostile, or aggressive. Common side effects may include: ? headache, dizziness, drowsiness, tiredness; ?? swelling in your hands or feet; ?? problems with your eyes; ?? coordination problems; or ?? (in children) fever, nausea, vomiting. This is not a complete list of side effects and others may occur. Call your doctor for medical advice about side effects. You may report side effects to FDA at 5-287-OEO-0797. What other drugs will affect gabapentin? Taking gabapentin with other drugs that make you sleepy can worsen this effect. Ask your doctor before taking a sleeping pill, narcotic medication, muscle relaxer, or medicine for anxiety, depression, or seizures. Other drugs may interact with gabapentin, including prescription and kuxo-yuf-dhykszs medicines, vitamins, and herbal products. Tell your [...] to ensure that the information provided by [employer] ('[employer]') is accurate, up-to-date, and complete, but no guarantee is made to that effect. Drug information contained herein may be time sensitive. [employer] information has been compiled for use by healthcare practitioners and consumers in the [place] and therefore [employer] does not warrant that uses outside of the [place] are appropriate, unless specifically indicated otherwise. [employer]'s drug information does not endorse drugs, diagnose patients or recommend therapy. [facility]'s drug information is an informational resource designed [...] effective or appropriate for any given patient. [facility] does not assume any responsibility for any aspect of healthcare administered with the aid of information [facility] provides. The information contained herein is not intended to cover all possible uses, directions, precautions, warnings, drug interactions, allergic reactions, or adverse effects. If you have questions about the drugs you are taking, check with your doctor, nurse or pharmacist. Copyright 7683-3295 [facility]. Version: 14.. Revision Date: 12/08/2016.hydromorphone (oral) (JATINDER droe MOR fone) Dilaudid, Exalgo What is the most important information I should know about hydromorphone? MISUSE OF OPIOID MEDICINE CAN CAUSE ADDICTION, OVERDOSE, OR . Keep the medication in a place where others cannot get to it. Taking opioid medicine during may cause life-threatening withdrawal symptoms in the . Fatal side effects can occur if you use opioid medicine with alcohol, or with other drugs that cause drowsiness or slow your breathing. What is hydromorphone? Hydromorphone is an opioid medication used to treat moderate to severe pain. The extended-release form of this medicine is for uubkrd-lhe-bvglj treatment of moderate to severe pain, not for use on an as-needed basis for pain. Hydromorphone may also be used for purposes not listed in this medication guide. What should I discuss with my healthcare provider before using hydromorphone? You should not take this medicine if you have ever had an allergic reaction to hydromorphone or other narcotic medicines, or if you have: ? severe asthma or breathing problems; ?? a blockage in your stomach or intestines; or ?? a bowel obstruction called paralytic ileus. Do not use hydromorphone if you have used an MAO inhibitor in the past 14 days. A dangerous drug interaction could occur. MAO inhibitors include isocarboxazid, linezolid, methylene blue injection, phenelzine, rasagiline, selegiline, tranylcypromine, and others. Tell your doctor if you have ever had: ? a head injury, brain tumor, or seizures; ?? alcoholism, drug addiction, or mental illness; ?? urination problems; ?? liver or kidney disease; ?? a sulfite allergy; or ?? problems with your gallbladder, pancreas, or thyroid. If you use opioid medicine while you are , your baby could become dependent on the drug. This can cause life-threatening withdrawal symptoms in the baby after it is born. Babies born dependent on opioids may need medical treatment for several weeks. Do not breast-feed. Hydromorphone can pass into breast milk and may cause drowsiness or breathing problems in a nursing baby. How should I use hydromorphone? Follow the directions on your prescription label and read all medication guides. Never use hydromorphone in larger amounts, or for longer than [...] against the law. Stop taking all other drzsba-koo-xgjaa narcotic pain medications when you start taking hydromorphone. Swallow the capsule or tablet whole to avoid exposure to a potentially fatal overdose. Do not crush, chew, break, open, or dissolve. Measure liquid medicine carefully. Use the dosing syringe provided, or use a medicine dose-measuring device (not a kitchen spoon). Do not stop using hydromorphone suddenly, or you could have unpleasant withdrawal symptoms. Ask your doctor how to safely stop using hydromorphone. Never crush or break a hydromorphone pill to inhale the powder or mix it into a liquid to inject the drug into your vein. This can cause in . Store at room temperature away from moisture, heat, and light. Throw away any unused liquid after 90 days. Keep track of your medicine. You should be aware if anyone is using it improperly or without a prescription. Do not keep leftover opioid medication. Just one dose can cause in someone using this medicine accidentally or improperly. Ask your pharmacist where to locate a drug take-back disposal program. If there is no take-back program, flush the unused medicine down the toilet. What happens if I miss a dose? Since hydromorphone is used for pain, you are not likely to miss a dose. Skip any missed dose if it is almost time for your next dose. Do not use two doses at one time. What happens if I overdose? Seek emergency medical attention or call the Poison Help line at . A hydromorphone overdose can be fatal, especially in a child or other person using the medicine without a prescription. Overdose symptoms may include slow heart rate, severe drowsiness, muscle weakness, cold and clammy skin, pinpoint pupils, very slow breathing, or coma. What should I avoid while using hydromorphone? Do not drink alcohol. Dangerous side effects or could occur. Avoid driving or hazardous activity until you know how this medicine will affect you. Dizziness or drowsiness can cause falls, accidents, or severe injuries. What are the possible side effects of hydromorphone? Get emergency medical help if you have signs of an allergic reaction: hives; difficulty breathing; swelling of your face, lips, tongue, or throat. Opioid medicine can slow or stop your breathing, and may occur. A person caring for you should seek emergency medical attention if you have slow breathing with long pauses, blue colored lips, or if you are hard to wake up. Call your doctor at once if you have: ? noisy breathing, sighing, shallow breathing; ?? a slow heart rate or weak pulse; ?? confusion, feelings of extreme happiness or sadness; ?? severe weakness or drowsiness; ?? a light-headed feeling, like you might pass out; ?? low cortisol levels--nausea, vomiting, loss of appetite, dizziness, worsening tiredness or weakness. Seek medical attention right away if you have symptoms of serotonin syndrome, such as: agitation, hallucinations, fever, sweating, shivering, fast heart rate, muscle stiffness, twitching, loss of coordination, nausea, vomiting, or diarrhea. Serious side effects may be more likely in older adults and those who are malnourished or debilitated. Long-term use of opioid medication may affect fertility (ability to have children) in men or women. It is not known whether opioid effects on fertility are permanent. Common side effects may include: ? drowsiness, tiredness; ?? dizziness; ?? headache; or ?? constipation, nausea, vomiting, stomach pain. This is not a complete list of side effects and others may occur. Call your doctor for medical advice about side effects. You may report side effects to FDA at 6-656-WHW-3214. What other drugs will affect hydromorphone? Opioid medication can interact with many other drugs and cause dangerous side effects or . Be sure your doctor knows if you also use: ? other narcotic medications--opioid pain medicine or prescription cough medicine; ?? [...] nausea and vomiting. This list is not complete. Other drugs may affect hydromorphone, including prescription and udxo-vus-jyiuixr medicines, vitamins, and herbal products. Not all possible interactions are listed here. Where can I get more information? Your doctor or pharmacist can provide more information about hydromorphone. Remember, keep this and all other medicines out of the reach of children, never share your medicines with others, and use this medication only for the indication prescribed. Every effort has been made to ensure that the information provided by [employer]') is accurate, up-to-date, and complete, but no guarantee is made to that effect. Drug information contained herein may be time sensitive. [employer] information has been compiled for use by healthcare practitioners and consumers in the [place] and therefore [employer] does not warrant that uses outside of the [place] are appropriate, unless specifically indicated otherwise. [employer]'s drug information does not endorse drugs, diagnose patients or recommend therapy. [employer] drug information is an informational resource designed [...] effective or appropriate for any given patient. [facility] does not assume any responsibility for any aspect of healthcare administered with the aid of information [facility] provides. The information contained herein is not intended to cover all possible uses, directions, precautions, warnings, drug interactions, allergic reactions, or adverse effects. If you have questions about the drugs you are taking, check with your doctor, nurse or pharmacist. Copyright 0428-1379 [facility]. Version: 9.02. Revision Date: 01/26/2018.docusate (oral/rectal) (DOK aliyahe luis) Colace, Diocto, Dioeze, Doc-Q-Lace, Docu, Docu Soft, Doculase, Docuprene, Docusil, Docusoft S, DocuSol, DOK, DSS, Dulcolax Stool Softener, Enemeez Mini, Christiano-Tin, Octycine-250, Pedia-Lax Stool Softener, Finn Stool Softener, Promolaxin, Silace, Surfak Stool Softener, Eliceo-Q-Lax, Vacuant What is the most important information I should know about docusate? You should not use docusate if you have a blockage in your intestines. Do not use docusate while you are sick with nausea, vomiting, or severe stomach pain. You should not take mineral oil while using docusate. What is docusate? Docusate is a stool softener. It makes bowel movements softer and easier to pass. Docusate is used to treat or prevent constipation, and to reduce pain or rectal damage caused by hard stools or by straining during bowel movements. Docusate may also be used for purposes not listed in this medication guide. What should I discuss with my healthcare provider before using docusate? You should not use docusate if you are allergic to it, or if you have: ? nausea, vomiting, or severe stomach pain; ?? a blockage in your intestines; or ?? chronic stomach pain that has not been checked by a doctor. You should not take mineral oil while using docusate. Ask a doctor or pharmacist if it is safe for you to take docusate: ? if you are on a low-salt diet; or ?? if you have recently had a sudden change in your bowel habits lasting for longer than 2 weeks. FDA category C. It is not known whether docusate will harm an unborn baby. Do not use this medicine without a doctor's advice if you are . It is not known whether docusate passes into breast milk or if it could harm a nursing baby. Do not use this medicine without a doctor's advice if you are breast-feeding a baby. Do not give this medicine to a child younger than 6 years old without the advice of a doctor. How should I use docusate? Use exactly as directed on the label, or as prescribed by your doctor. Do not use in larger or smaller amounts or for longer than recommended. Take this medicine with a full glass of water. Drink plenty of liquids while you are taking docusate. Do not crush, chew, break, or open a docusate capsule or tablet. Swallow it whole. Measure liquid medicine with the dosing syringe provided, or with a special dose-measuring spoon or medicine cup. If you do not have a dose-measuring device, ask your pharmacist for one. Mix the liquid with 6 to 8 ounces of milk, fruit juice, or formula and drink the mixture right away. After taking docusate by mouth (tablets, capsules, liquid), you should have a bowel movement within 12 to 72 hours. Do not take docusate rectal enema by mouth. It is for use only in your rectum. Wash your hands before and after using docusate enema. Try to empty your bowel and bladder just before using the enema. Remove the cap from the enema applicator tip. Lie down on your left side with your knees bent, and gently insert the tip of the enema applicator into the rectum. Squeeze the tube to empty the entire contents into the rectum. Throw away the tube, even if there is still some medicine left in it. For best results, hold in the enema for as long as possible, or until you have a bowel movement. The rectal enema should produce a bowel movement within 2 to 15 minutes. Do not use docusate for longer than 7 days unless your doctor has told you to. Call your doctor if your symptoms do not improve, or if you have not had a bowel movement within 1 to 3 days. Overuse of a stool softener can lead to serious medical problems. Store at room temperature away from moisture and heat. What happens if I miss a dose? Since docusate is used when needed, you may not be on a dosing schedule. If you are on a schedule, use the missed dose as soon as you remember. Skip the missed dose if it is almost time for your next scheduled dose. Do not use extra medicine to make up the missed dose. What happens if I overdose? Seek emergency medical attention or call the Poison Help line at . Overdose symptoms may include nausea, vomiting or stomach pain. What should I avoid while using docusate? Avoid using laxatives or other stool softeners unless your doctor has told you to. What are the possible side effects of docusate? Get emergency medical help if you have any of these signs of an allergic reaction: hives; difficult breathing; swelling of your face, lips, tongue, or throat. Stop using docusate and call your doctor at once if you have: ? pounding heartbeats or fluttering in your chest; ?? a light-headed feeling, like you might pass out; ?? rectal bleeding or irritation; ?? numbness or a rash around your rectum; ?? vomiting, severe diarrhea or stomach cramps; or ?? continued constipation, or no bowel movement. Common side effects may include: ? dizziness, weakness; ?? gas, bloating, mild diarrhea; ?? rectal irritation; or ?? sweating. This is not a complete list of side effects and others may occur. Call your doctor for medical advice about side effects. You may report side effects to FDA at 4-043-LIB-8907. What other drugs will affect docusate? Other drugs may interact with docusate, including prescription and xbyh-usl-ilykvpj medicines, vitamins, and herbal products. Tell each of your health care providers about all medicines you use now and any medicine you start or stop using. Where can I get more information? Your pharmacist can provide more information about docusate. Remember, keep this and all other medicines out of the reach of children, never share your medicines with others, and use this medication only for the indication prescribed. Every effort has been made to ensure that the information provided by [employer]') is accurate, up-to-date, and complete, but no guarantee is made to that effect. Drug information contained herein may be time sensitive. [employer] information has been compiled for use by healthcare practitioners and consumers in the [place] and therefore [employer] does not warrant that uses outside of the [place] are appropriate, unless specifically indicated otherwise. [employer] drug information does not endorse drugs, diagnose patients or recommend therapy. [employer] drug information is an informational resource designed [...] effective or appropriate for any given patient. [employer] does not assume any responsibility for any aspect of healthcare administered with the aid of information [employer] provides. The information contained herein is not intended to cover all possible uses, directions, precautions, warnings, drug interactions, allergic reactions, or adverse effects. If you have questions about the drugs you are taking, check with your doctor, nurse or pharmacist. Copyright 5280-8653 [employer] Version: 3.03. Revision Date: 04/12/2013.acetaminophen (oral) (a SEET a MIN oh fen) Actamin, Anacin AF, Apra, Bromo [place], Children's Tylenol, Elixsure Fever/Pain, Mapap, Medi-Tabs, Q-Pap, Silapap Childrens, Tactinal, Tempra Quicklets, Tycolene, Tylenol, Vitapap What is the most important information I should know about acetaminophen? You should not use this medication if you have severe liver disease. An overdose of acetaminophen can damage your liver or cause . ? Adults and teenagers who weigh at least 110 pounds should not take more than 1000 milligrams (mg) at one time, or more than 4000 mg in 24 hours. ?? Children younger than 12 years old should not take more than 5 doses in 24 hours, using only the number of milligrams per dose that is recommended for the child's weight and age. Use exactly as directed on the label. Avoid also using other medicines that contain [...] causes blistering and peeling. What is acetaminophen? There are many brands and forms of acetaminophen available. Not all brands are listed on this leaflet. Acetaminophen is a pain reliever and a fever store receiver. Acetaminophen is used to treat many conditions such as headache, muscle aches, arthritis, backache, toothaches, colds, and fevers. Acetaminophen may also be used for purposes [...] more than 3 alcoholic beverages per day. You may not be able to take acetaminophen. Your doctor will determine whether acetaminophen is safe for you to use during . Do not use this medicine without the advice of your doctor if you are . Acetaminophen can pass into breast milk and may harm a nursing baby. Tell your doctor if you are breast-feeding a baby. Do not give this medicine to a child younger than 2 years old without the advice of a doctor. How should I take acetaminophen? Use exactly as directed on the label, or as prescribed by your doctor. Do not use in larger or smaller amounts or for longer than recommended. Do not take more than your recommended dose. An overdose of acetaminophen can damage your liver or cause . ? Adults and teenagers who weigh at least [...] on the medicine label. Measure liquid medicine with the dosing syringe provided, or with a special dose-measuring spoon or medicine cup. If you do not have a dose-measuring device, ask your pharmacist for one. Acetaminophen made for infants is available in two different dose concentrations, and each concentration comes with its own medicine dropper or oral syringe. These dosing devices are not equal between the different concentrations. Using the wrong device may cause you to give your child an overdose of acetaminophen. Never mix and match dosing devices between formulations of acetaminophen. You may need to shake the liquid before each use. Follow the directions on the medicine label. The chewable tablet must be chewed thoroughly before you swallow it. Make sure your hands are dry when handling the acetaminophen disintegrating tablet. Place the tablet on your tongue. It will begin to dissolve right away. Do not swallow the tablet whole. Allow it to dissolve in your mouth without chewing. To use the acetaminophen effervescent granules, dissolve one packet of the granules in at least 4 ounces of water. Stir this mixture and drink all of it right away. To make sure you get the entire dose, add a little more water to the same glass, swirl gently and drink right away. Stop taking acetaminophen and call your doctor if: ? you still have a fever after 3 days of use; ?? you still have pain after 7 days of use (or 5 days if treating a child); ?? you have a skin rash, ongoing headache, or any redness or swelling; or ?? if your symptoms get worse, or if you have any new symptoms. This medication can cause unusual results with certain lab tests for glucose (sugar) in the urine. Tell any doctor who treats you that you are using acetaminophen. Store at room temperature away from heat and moisture. What happens if I miss a dose? Since acetaminophen is used when needed, you may not be on a dosing schedule. If you are on a schedule, use the missed dose as soon as you remember. Skip the missed dose if it is almost time for your next scheduled dose. Do not use extra medicine to make up the missed dose. What happens if I overdose? Seek emergency medical attention or call the Poison Help line at . An overdose of acetaminophen can be fatal. The first signs of an acetaminophen overdose include loss of appetite, nausea, vomiting, stomach pain, sweating, and confusion or weakness. Later symptoms may include pain in your upper stomach, dark urine, and yellowing of your skin or the whites of your eyes. What should I avoid while taking acetaminophen? Ask a doctor or pharmacist before using any other cold, allergy, pain, or sleep medication. Acetaminophen (sometimes abbreviated as APAP) is contained in many combination medicines. Taking certain products together can cause you to get too much acetaminophen which can lead to a fatal overdose. Check the label to see if a medicine contains acetaminophen or APAP. Avoid drinking alcohol. It may increase your risk of liver damage while taking acetaminophen. What are the possible side effects of [...] your doctor at once if you have: ? nausea, upper stomach pain, itching, loss of appetite; ?? dark urine, sharon-colored stools; or ?? jaundice (yellowing of the skin or eyes). This is not a complete list of side effects and others may occur. Call your doctor for medical advice about side effects. You may report side effects to FDA at 1-199-MVV-1295. What other drugs will affect acetaminophen? Other drugs may interact with acetaminophen, including prescription and yxwr-kkt-pladxvo medicines, vitamins, and herbal products. Tell your doctor about all your current medicines and any medicine you start or stop using. Where can I get more information? Your pharmacist can provide more information about acetaminophen. Remember, keep this and all other medicines out of the reach of children, never share your medicines with others, and use this medication only for the indication prescribed. documented in this encounter Plan of Treatment Not on file documented as of this encounter Visit Diagnoses Not on filedocumented in this encounter
--- OUTSIDE RECORDS SUMMARY | 2024-08-09 13:24 | XMS_ITS | Encounter Summary ---
Author Organization [email or web address] Address [address] [place] [id number] Care Team Providers Care Press Smith Helper Name Role Phone Unavailable Primary Care Provider Unavailabl e Encounter Details Date Type Department Care Team (Late st Contact Info) Description 06/23/2019 Transcribed Document [facility] [place] [address] ProviderMariela MD [address] [place] [id number] Social History Tobacco Use Types Packs/Day [...] Conversion Note - Historical ProviderMD - 06/23/2019 5:06 PM CDT Patient: SOFIA GILL Age: 79 [...] 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 Saenz recommendations and started on Lovenox and Coumadin ???Volume depletion Review of Systems Constitutional: No fever, No [...] Itching Current medications: Medications (53) Active Scheduled: (20) #NaCl 0.9% *FLUSH* inj 10 mL 10 mL, IntraCATHeter, Q12H acetaminophen 500 mg tab 1,000 mg 2 Tab, Oral, TID calcium 500 mg/vit D 200 int unit tab 1 Tab, Oral, BID cefTRIAXone + NaCl 0.9% 50 mL 2 Gram, IV Piggyback, [id number] cyanocobalamin 1,000 mcg tab 5,000 mcg 5 Tab, Oral, Daily docusate sodium 100 mg cap 100 mg 1 Cap, Oral, BID DULoxetine DR 60 mg cap 60 mg 1 Cap, Oral, Daily enoxaparin 40 mg/0.4 mL inj 40 mg 0.4 mL, SubCutaneous, [id number] gabapentin 300 mg cap 300 mg 1 [...] At Bedtime fluticasone 0.05% nasal spray 2 [place], Nostrils Both, BID LORazepam 2 mg/mL inj [...] Topical, Q1H phenol 1.4% throat spray 1 [place], Oral, Q2H potassium chloride 10 mEq 100 [...] Sleep apnea Physical Examination VS/Measurements Vital Measurements 06/23/2019 13:31 EDT Systolic Blood Pressure 114 mmHg Diastolic Blood Pressure 46 mmHg LOW Mean Arterial Pressure (MAP)-BMDI 61 Temperature Source Oral Temperature Mode Fahrenheit Temperature, Fahrenheit 97.8 Deg F Clinical Temperature, C 36.6 Deg C Heart Rate Monitored 75 bpm Oxygen Saturation 100 % Oxygen Therapy Mode Nasal cannula Oxygen Flow Rate 3 Liter/Min 06/23/2019 10:21 EDT Systolic Blood Pressure 100 mmHg Diastolic Blood Pressure 43 mmHg LOW Mean Arterial Pressure (MAP)-BMDI 57 Temperature Source Oral Temperature Mode Fahrenheit Temperature, Fahrenheit 97.9 Deg F Clinical Temperature, C 36.6 Deg C Heart Rate Monitored 73 bpm Respiratory Rate 16 Breaths/Min Oxygen Saturation 100 % Oxygen Therapy Mode Nasal cannula Oxygen Flow Rate 3 Liter/Min 06/23/2019 8:34 EDT Heart Rate Monitored 72 bpm Respiratory Rate 16 Breaths/Min Oxygen Saturation 98 % Oxygen Therapy Mode Nasal cannula Oxygen Flow Rate 3 Liter/Min 06/23/2019 5:57 EDT Heart Rate Monitored 71 bpm Oxygen Saturation 100 % Oxygen Therapy Mode CPAP Oxygen Flow Rate 3 Liter/Min 06/23/2019 5:00 EDT Systolic Blood Pressure 94 mmHg Diastolic Blood Pressure 39 mmHg LOW Mean Arterial Pressure (MAP)-BMDI 53 Temperature Source Oral Temperature Mode Fahrenheit Temperature, Fahrenheit 98.1 Deg F Clinical Temperature, C 36.7 Deg C Respiratory Rate 16 Breaths/Min General: Alert and oriented, No acute distress. [...] Review / Management Results review: All Results 06/23/2019 14:00 EDT PT 11.5 Second(s) INR 1.1 06/23/2019 2:34 EDT Sodium [...] % LOW ALYC # 3 K/uL NA [place] Percent Man 6 % HI Myelo Percent Man 1 % RBC Morphology Normal Toxic Granulation 1+ Platelet Ct Estimate Increased Slide Review Add Diff Man 06/22/2019 2:40 EDT Sodium Level 136 mmol/L [...] % LOW ALYC # 1 K/uL NA [place] Percent Man 6 % HI [place] Percent Man 3 % HI Myelo Percent Man 2 % HI RBC Morphology Normal Platelet Ct Estimate Adequate . Impression and Plan Diagnosis Chronic venous [...] IV antibiotics as recommended by infectious disease. DVT prophylaxis as per Dr. Saenz protocol. Continue with fluid hydration with close monitoring renal function as her GFR slightly decreased today. The fall risk precaution. LTAC referral. Orders Order Profile (Selected) Inpatient Orders Ordered (Scheduled) CBC w/ Auto Diff: Specimen Type: Blood, AM Draw collect, 06/24/19 4:00:00 EDT, 1-Time, Stop: 06/24/19 4:00:00 EDT, Lab Collect CMP Comprehensive Metabolic Panel: Specimen Type: Blood, AM Draw collect, 06/24/19 4:00:00 EDT, 1-Time, Stop: 06/24/19 4:00:00 EDT, Lab Collect Magnesium Level: Specimen Type: Blood, AM Draw collect, 06/24/19 4:00:00 EDT, 1-Time, Stop: 06/24/19 4:00:00 EDT, Lab Collect Phosphorus Level: Specimen Type: Blood, AM Draw collect, 06/24/19 4:00:00 EDT, 1-Time, Stop: 06/24/19 4:00:00 EDT, Lab Collect. documented in this encounter Plan of Treatment Not on file documented as of this encounter Visit Diagnoses Not on filedocumented in this encounter
--- OUTSIDE RECORDS SUMMARY | 2024-08-09 13:24 | XMS_ITS | Encounter Summary ---
Author Organization [employer] Address [address] [place] [address] Care Team Providers Care Package Clerk Name Role Phone Unavailable Primary Care Provider Unavailabl e Encounter Details Date Type Department Care Team (Late st Contact Info) Description 06/27/2019 Transcribed Document [facility] [place] Family Medicine [facility] [place] [address] ProviderMariela MD [facility] [place] [address] Social History Tobacco Use Types [...] Cerner Conversion Note - Mariela ProviderMD - 06/27/2019 12:35 PM CDT Patient: SOFIA GILL Age: 79 years Sex: Female : 1940 Associated Diagnoses: Chronic venous insufficiency; Osteoarthritis; Sepsis; Hypercholesterolemia; Obstructive sleep apnea; Morbid obesity with BMI [...] injury Author: DONNA JAFFE MD-INT Date of admission: 06/26/2019 Orthopedic surgeon: Georgia Saenz M.D. Infectious disease: Tyrell Stock M.D. Admitting physician : [facility] medicine, internal medicine, Donna Jaffe M.D. Admitting diagnosis: 1 periprosthetic left knee infection, status post I&D, debridement, washout and poly-exchange, culture positive for group B streptococcus agalactiae 2???group B streptococcus agalactiae bacteremia 3???sepsis 4???left knee cellulitis 5???status post toxic and metabolic encephalopathy 6???acute blood loss anemia 7???status post acute kidney injury 8???electrolyte disturbance 9???elevated inflammatory markers 10???left knee pain and swelling 11???osteoarthritis 12???hypertension 13???hypothyroidism 14???hypercholesterolemia 15???cardiac murmur 16???GERD 17???hypoalbuminemia 18???SHERRY 19???morbid obesity with BMI of 43.7 20 chronic venous insufficiency History of present illness: 79 years old white female with a complicated medical history as listed below in addition to associated multiple comorbidities and multiple left knee surges with hardware removal, soft tissue injury and infection and recurrent falls, was admitted to [facility] with a periprosthetic Left knee infection. Initially started on IV antibiotics was vancomycin and Rocephin. The patient was taken to OR and had I&D, Debridement , washout, and poly-exchange by Dr. Saenz. ID was consulted, Dr. Cornejo then Dr. Stock, And antibiotics were modified according to his recommendations. Blood culture as well as tissue culture came back positive for group B Streptococcus agalactiae. Patient was then started on Rocephin only 2 g IV daily and has to continue for at least 6 weeks. Patient also started on PT/OT but she is a high fall risk, and steady and has no support at home. For the best interest of the patient safety and continue providing the right Care patient then transferred to [facility] to continue her care and rehabilitation.(for more details please see discharge summary and H&P from [facility].} Postoperative Information Patient had surgery today and is recovering well. patient is awake, alert, cooperative, responsive, and is under no acute distress. Currently Patient is on pain medication as recommended by Patient's pain is well controlled. Patient is on DVT prophylaxis and also on scheduled bowel regimen. Urine out-put is adequate. PT/OT onboard. Review of Systems Constitutional: No fever, No chills. Eye: No visual disturbances. Ear/Nose/Mouth/Throat: No nasal congestion, No sore throat. Respiratory: No shortness of breath, No cough. Cardiovascular: No chest pain, No tachycardia. Gastrointestinal: No nausea, No vomiting, No abdominal pain. Genitourinary: No change in urine stream. Hematology/Lymphatics: No bleeding tendency. Endocrine: No polyuria, No cold intolerance, No heat intolerance. Immunologic: Negative. Musculoskeletal: left knee pain and swelling. Integumentary: wound stable covered w. clean dressing. Neurologic: No confusion, No numbness, No tingling, No headache. Psychiatric: No anxiety, No depression. All other systems are negative Health Status Allergies: Allergies (10) Active Reaction amLODIPine None Documented valdecoxib None Documented Bextra Itching etodolac Itching Latex Itching Mobic Itching Naprosyn Itching penicillin Shortness of breath phentermine unknown reaction sulfa drugs Itching Current medications: Home Medications (15) Active albuterol 90 mcg/inh inhalation powder 1 Puff, PRN, Inhalation, Q6H Aspir 81 oral delayed release tablet 81 mg = 1 Tab, Oral, Daily CoQ10 1 Tab, Oral, Daily Crestor 10 mg oral tablet 10 mg = 1 Tab, Oral, At Bedtime cyanocobalamin 5000 mcg oral tablet, extended release 5,000 mcg = 1 Tab, Oral, Daily Cymbalta 60 mg oral delayed release capsule 60 mg = 1 Cap, Oral, Daily diclofenac sodium 75 mg oral delayed release tablet 75 mg = 1 Tab, Oral, BID fluticasone 50 mcg/inh nasal spray 2 [place], PRN, Nostrils Both, BID furosemide 40 mg oral tablet 40 mg = 1 Tab, Oral, BID levocetirizine 5 mg oral tablet 5 mg = 1 Tab, Oral, QPM lisinopril 10 mg oral tablet 10 mg = 1 Tab, Oral, Daily magnesium oxide 250 mg oral tablet 500 mg = 2 Tab, Oral, BID potassium chloride 20 mEq oral tablet, extended release 20 mEq = 1 Tab, Oral, BID Synthroid 100 mcg (0.1 mg) oral tablet 100 mcg = 1 Tab, Oral, Daily traMADol 50 mg oral tablet 100 mg = 2 Tab, PRN, Oral, Q12H , Medications (43) Active Scheduled: (18) calcium 500 mg/vit D 200 int unit tab 1 Tab, Oral, BID cefTRIAXone + NaCl 0.9% 50 mL 2 Gram, IV Piggyback, [id number] cyanocobalamin 1,000 mcg tab 5,000 mcg 5 Tab, Oral, Daily DULoxetine DR 60 mg cap 60 mg 1 Cap, Oral, Daily enoxaparin 40 mg/0.4 mL inj 40 mg 0.4 mL, SubCutaneous, [id number] fluconazole 100 mg tab 100 mg 1 [...] 50 mg 1 Cap, Oral, Daily Continuous: (0) PRN: (25) #NaCl [...] fluticasone 0.05% nasal spray 100 mcg 2 [place], Nostrils Both, BID magnesium hydroxide 8% liq [...] Seasonal allergies Shoulder pain, bilateral Sleep apnea Histories Family History: have a history significant for cancer but there is no family history of DM, HTN or CAD Procedure history: x 2. left TSA. left shoulder ORIF. right RCR. left TKA. revision left TKA. left knee ORIF. lap band gastric bypass. Babak filter. Social History patient is and has 2 sons. There is no history of smoking or drinking alcohol. Physical Examination VS/Measurements Vital Signs/Vital Measures 06/27/2019 8:00 EDT Oxygen Therapy Mode Nasal cannula Oxygen Flow Rate 2 Liter/Min 06/27/2019 7:00 EDT Systolic Blood Pressure 149 mmHg HI Diastolic Blood Pressure 66 mmHg Temperature Source Oral Temperature Mode Fahrenheit Temperature, Fahrenheit 99.0 Deg F Clinical Temperature, C 37.2 Deg C Heart Rate Monitored 84 bpm Respiratory Rate 19 Breaths/Min Oxygen Saturation 96 % 06/26/2019 23:00 EDT Systolic Blood Pressure 164 mmHg HI Diastolic Blood Pressure 69 mmHg Temperature Source Oral Temperature Mode Fahrenheit Temperature, Fahrenheit 98.7 Deg F Clinical Temperature, C 37.1 Deg C Heart Rate Monitored 86 bpm Respiratory Rate 20 Breaths/Min Oxygen Saturation 96 % 06/26/2019 18:42 EDT Systolic Blood Pressure 166 mmHg HI Diastolic Blood Pressure 66 mmHg Temperature Source Oral Temperature Mode Fahrenheit Temperature, Fahrenheit 98.5 Deg F Clinical Temperature, C 36.9 Deg C Heart Rate Monitored 86 bpm Respiratory Rate 20 Breaths/Min Oxygen Saturation 98 % 06/26/2019 18:00 EDT Temperature Source Oral Temperature Mode Fahrenheit Oxygen Therapy Mode Nasal cannula Oxygen Flow Rate 2 Liter/Min 06/26/2019 13:47 EDT Systolic Blood Pressure 122 mmHg Diastolic Blood Pressure 58 mmHg LOW Mean Arterial Pressure (MAP)-BMDI 72 Temperature Source Oral Temperature Mode Fahrenheit Temperature, Fahrenheit 98.4 Deg F Clinical Temperature, C 36.9 Deg C Heart Rate Monitored 83 bpm Respiratory Rate 16 Breaths/Min Oxygen Saturation 100 % 06/26/2019 12:30 EDT Systolic Blood Pressure 123 mmHg Diastolic Blood Pressure 51 mmHg LOW Mean Arterial Pressure (MAP)-BMDI 69 Heart Rate Monitored 88 bpm Oxygen Saturation 99 % 06/26/2019 12:00 EDT Systolic Blood Pressure 118 mmHg Diastolic Blood Pressure 65 mmHg Mean Arterial Pressure (MAP)-BMDI 77 Heart Rate Monitored 104 bpm HI Oxygen Saturation 99 % 06/26/2019 11:30 EDT Systolic Blood Pressure 117 mmHg Diastolic Blood Pressure 54 mmHg LOW Mean Arterial Pressure (MAP)-BMDI 70 Temperature Source Oral Temperature Mode Fahrenheit Heart Rate Monitored 79 bpm Oxygen Saturation 96 % 06/26/2019 11:28 EDT Heart Rate Monitored 80 bpm Oxygen Saturation 98 % 06/26/2019 11:00 EDT Systolic Blood Pressure 134 mmHg Diastolic Blood Pressure 53 mmHg LOW Mean Arterial Pressure (MAP)-BMDI 72 06/26/2019 10:30 EDT Systolic Blood Pressure 127 mmHg Diastolic Blood Pressure 53 mmHg LOW Mean Arterial Pressure (MAP)-BMDI 68 Heart Rate Monitored 82 bpm Oxygen Saturation 100 % 06/26/2019 9:55 EDT Systolic Blood Pressure 128 mmHg Diastolic Blood Pressure 48 mmHg LOW Mean Arterial Pressure (MAP)-BMDI 65 Temperature Source Oral Temperature Mode Fahrenheit Temperature, Fahrenheit 98.9 Deg F Clinical Temperature, C 37.2 Deg C Heart Rate Monitored 97 bpm Respiratory Rate 16 Breaths/Min Oxygen Saturation 81 % LOW 06/26/2019 7:10 EDT Oxygen Therapy Mode Room air 06/26/2019 5:13 EDT Systolic Blood Pressure 119 mmHg Diastolic Blood Pressure 42 mmHg LOW Mean Arterial Pressure (MAP)-BMDI 61 Temperature Source Oral Temperature Mode Fahrenheit Temperature, Fahrenheit 97.2 Deg F Clinical Temperature, C 36.2 Deg C Heart Rate Monitored 73 bpm Respiratory Rate 16 Breaths/Min Oxygen Saturation 96 % 06/26/2019 2:21 EDT Systolic Blood Pressure 119 mmHg Diastolic Blood Pressure 43 mmHg LOW Temperature Source Oral Temperature Mode Fahrenheit Temperature, Fahrenheit 98 Deg F Heart Rate Monitored 80 bpm Respiratory Rate 18 Breaths/Min Oxygen Saturation 95 % 06/26/2019 2:00 EDT Mean Arterial Pressure (MAP)-BMDI 62 General: Alert and oriented, No acute distress. Eye: Pupils are equal, round and reactive to light, Normal conjunctiva, Vision unchanged. HENT: Normocephalic, Tympanic membranes are clear, Normal hearing, Oral mucosa is moist, No pharyngeal erythema, No sinus tenderness. Neck: Supple, Non-tender, No carotid bruit, No jugular venous distention, No lymphadenopathy, No thyromegaly. Respiratory: Lungs are clear to auscultation, Respirations are non-labored, Breath sounds are equal, Symmetrical chest wall expansion, No chest wall tenderness. Cardiovascular: Normal rate, Regular rhythm, No murmur, No gallop, Good pulses equal in all extremities, Normal peripheral perfusion, No edema. Gastrointestinal: Soft, Non-tender, Non-distended, Normal bowel sounds, No organomegaly. Genitourinary: No costovertebral angle tenderness, No inguinal tenderness, No urethral discharge, No lesions. Lymphatics: No lymphadenopathy neck, axilla, groin. Musculoskeletal: left knee pain and swelling. Integumentary: Warm, [place], Intact, No pallor, No rash, left knee cellulitis. Neurologic: Alert, Oriented, Normal sensory, Normal motor function, No focal deficits, Cranial Nerves II-XII are grossly intact, Normal deep tendon reflexes. Psychiatric: Cooperative, Appropriate mood & affect, Normal judgment, Non-suicidal. Review / Management Results review: Lab results 06/27/2019 4:42 EDT Sodium Level 136 mmol/L Potassium Level 4.6 mmol/L Chloride Level 104 mmol/L Carbon Dioxide Level 28 mmol/L Anion Gap 9 Glucose Level 93 mg/dL Blood Urea Nitrogen 9 mg/dL CREATININE 0.60 mg/dL eGFR >60 mL/min/1.73m2 eGFR NonAfrican >60 mL/min/1.73m2 Bun/Creatinine 15.0 Calcium Level 8.1 mg/dL LOW Protein Total 5.9 Gram/dL LOW Albumin Level 2.4 Gram/dL LOW Globulin 3.5 Gram/dL A/G Ratio 0.7 LOW Bilirubin Total 0.5 mg/dL Alk Phos 56 Units/Liter AST 15 Units/Liter ALT 11 Units/Liter LOW WBC 10.6 K/uL HI RBC 3.04 Million/uL LOW Hgb 9.7 g/dL LOW Hct 29.4 % LOW MCV 96.7 fL HI MCH 31.9 pg MCHC 33.0 Gram/dL Platelet Count 431 K/uL HI MPV 9.8 fL RDW 13.7 % Neut % 65.0 % Neut # 6.88 K/uL HI Lymph % 20.8 % Lymph # 2.21 x10(3)/uL Gilmer % 9.4 % HI Gilmer # 1.00 K/uL Eos % 2.6 % Eos # 0.28 x10(3)/uL Baso % 0.3 % Baso # 0.03 x10(3)/uL Slide Review No IG# 0.20 x10(3)/uL HI IG% 1.90 % HI 06/26/2019 9:41 EDT TRANSFUSED TRANSFUSED 06/26/2019 8:08 EDT RBC Product Ready Not Done (Not Done) 06/26/2019 6:38 EDT ABO/Rh A POS Antibody Screen Negative ABSC Crossmatch Computer XM OK Crossmatch Computer XM OK 06/26/2019 5:54 EDT RBC Product Ready RBC Ready # of Units 2 06/26/2019 4:30 EDT Sodium Level 138 mmol/L Potassium Level 4.6 mmol/L Chloride Level 106 mmol/L Carbon Dioxide Level 28 mmol/L Anion Gap 9 Glucose Level 97 mg/dL Blood Urea Nitrogen 9 mg/dL CREATININE 0.53 mg/dL LOW eGFR >60 mL/min/1.73m2 eGFR NonAfrican >60 mL/min/1.73m2 Bun/Creatinine 17.0 Calcium Level 7.6 mg/dL LOW Protein Total 5.1 Gram/dL LOW Albumin Level 2.4 Gram/dL LOW Globulin 2.7 Gram/dL A/G Ratio 0.9 LOW Bilirubin Total 0.3 mg/dL Alk Phos 55 Units/Liter AST 12 Units/Liter ALT 13 Units/Liter CRP 6.2 mg/dL HI WBC 9.9 K/uL RBC 2.51 Million/uL LOW Hgb 7.6 Gram/dL LOW Hct 24.4 % LOW MCV 97.2 fL HI MCH 30.3 pg MCHC 31.1 Gram/dL LOW Platelet Count 406 K/uL HI MPV 8.7 fL LOW RDW 13.2 % Neut % 60.5 % Neut # 5.98 K/uL Lymph % 24.4 % Lymph # 2.42 K/uL Gilmer % 8.7 % Gilmer # 0.86 K/uL HI Eos % 2.5 % Eos # 0.25 K/uL Baso % 0.3 % Baso # 0.03 K/uL Sed Rate Auto 20 mm/Hr Slide Review No IG# 0 x10(3)/uL IG% 4 % HI . Impression and Plan Diagnosis Chronic venous insufficiency - Admitting, Medical. Osteoarthritis - Admitting, Medical. Sepsis - Admitting, Medical. Hypercholesterolemia - Admitting, Medical. Obstructive sleep apnea - Admitting, Medical. [...] Acute kidney injury - Admitting, Medical. Course: Plan/continue on IV antibiotics as per ID recommendations. Pain control. DVT prophylaxis. Close monitoring fluid and electrolytes. Fall risk precautions. Sleep apnea precautions. Stress ulcer prophylaxis. Close monitoring blood glucose and renal function. Will notify Dr. Stock patient in house to continue to monitor the patient with appropriate IV antibiotics.PT/OT consult. Wound care nurse. Dietitian eval and management.nutritional supplement and support. documented in this encounter Plan of Treatment Not on file documented as of this encounter Visit Diagnoses Not on filedocumented in this encounter
--- OUTSIDE RECORDS SUMMARY | 2024-08-09 13:24 | XMS_ITS | Encounter Summary ---
Author Organization [employer] Address [address] [place] [address] Care Team Providers Care Title Insurance Sales Representative Name Role Phone Unavailable Primary Care Provider Unavailabl e Encounter Details Date Type Department Care Team (Late st Contact Info) Description 08/31/2018 Transcribed Document [facility] [place] Family Medicine [address] [place] [address] ProviderMariela MD [address] [place] [address] Social History Tobacco Use Types Packs/Day Years Used Date Smoking Tobacco: Never Assessed Comments Unknown Sex and Gender Information Value Date Recorded Sex Assigned at Female 09/02/2021 8:57 PM CDT Legal Sex Female 6:58 PM CDT Gender Identity Female 09/02/2021 8:57 PM CDT Sexual Orientation Not on file documented as of this encounter Miscellaneous Notes * Cerner Conversion Note - Historical ProviderMD - 08/31/2018 12:18 PM CDT Post Visit Phone Call Entered On: 08/31/2018 12:21 EDT Performed On: 08/31/2018 12:18 EDT by Jazmin Taylor Rn Post Visit Phone Call Post Visit Phone Call History : First call, Left message Jazmin Taylor Rn - 08/31/2018 12:18 EDT Electronically signed by Maureen Cornejo Conversion Sand Cutting Machine Operator Cerbryce at 06/16/2022 8:03 PM CDT documented in this encounter Plan of Treatment Not on file documented as of this encounter Visit Diagnoses Not on filedocumented in this encounter
--- OUTSIDE RECORDS SUMMARY | 2024-08-09 13:24 | XMS_ITS | Encounter Summary ---
Author Organization [email or web address] Address [address] [place] [address] Care Team Providers Care Sail Repair Person Name Role Phone Unavailable Primary Care Provider Unavailabl e Encounter Details Date Type Department Care Team (Late st Contact Info) Description 06/23/2019 Transcribed Document [facility] [place] Family Medicine [facility] [place] [address] ProviderMariela MD [address] [place] [address] Social History Tobacco Use Types Packs/Day [...] Note - Historical ProviderMD - 06/23/2019 9:00 PM CDT Pain Assessment Entered On: 06/23/2019 23:13 EDT Performed On: 06/23/2019 21:56 EDT by Chiki Morris RN Intervention Information: acetaminophen Performed by Chiki Morris RN on 06/23/2019 20:56:00 EDT acetaminophen,1000mg Oral Pain Assessment Pain Assessment : Follow-up assessment Pain Scale Goal : 3 Pain Scale Used : 0-10 Scale Onset : Gradual Quality : Aching Pain Radiation : No Pain Worsened by : None Pain Intervention, Drug : Medicated Pain Improved by Intervention : Yes Chiki Morris RN - 06/23/2019 23:13 EDT Pain Scale Intensity : 4 Chiki Morris RN - 06/23/2019 23:13 EDT Image 4 - Images currently included in the form version of this document have not been included in the text rendition version of the form. documented in this encounter Plan of Treatment Not on file documented as of this encounter Visit Diagnoses Not on filedocumented in this encounter
--- OUTSIDE RECORDS SUMMARY | 2024-08-09 13:24 | XMS_ITS | Encounter Summary ---
Author Organization [employer] Address [address] [place] [address] Care Team Providers Care Cloth Wire Weaver Name Role Phone Unavailable Primary Care Provider Unavailabl e Encounter Details Date Type Department Care Team (Late st Contact Info) Description 06/24/2019 Transcribed Document [facility] [place] Family Medicine [address] [place] [address] ProviderMariela MD [address] [place], [place] [id number] Social History Tobacco Use Types Packs/Day Years [...] Conversion Note - Historical ProviderMD - 06/24/2019 2:00 AM CDT Transplant Coordinator Details Entered On: 06/24/2019 3:32 EDT Performed On: 06/24/2019 2:00 EDT by Chiki Morris, RN Order Details Transport Mode Order Detail : Bed (including specialty) Isolation Precautions Order Detail : Contact precautions Order Detail : N/A Oxygen Order Detail : 1 Lift/Transfer : Moderate assist Central Line Order Detail : Yes Room Service : Not Appropriate Arterial Line : No Chiki Morris, RN - 06/24/2019 3:32 EDT documented in this encounter Plan of Treatment Not on file documented as of this encounter Visit Diagnoses Not on filedocumented in this encounter
--- OUTSIDE RECORDS SUMMARY | 2024-08-09 13:24 | XMS_ITS | Encounter Summary ---
Author Organization [employer] Address [address] [place] [address] Care Team Providers Care Healthcare Translator Name Role Phone Unavailable Primary Care Provider Unavailabl e Encounter Details Date Type Department Care Team (Late st Contact Info) Description 06/24/2019 Transcribed Document [facility] [place] [facility] [place] [address] ProviderMariela MD [address] [place] [address] Social History Tobacco Use Types Packs/Day [...] Conversion Note - Historical ProviderMD - 06/24/2019 1:47 PM CDT On Going Discharge Planning Entered On: 06/24/2019 13:49 EDT Performed On: 06/24/2019 13:47 EDT by Halima Tripathi, EDDIE-MARINE EQUIPMENT SALES ENGINEERpetroleum refinery laborer Progress Note Discharge Arrangements : Patient Post-Acute [...] Attend Multidisciplinary Rounds? : No Halima Tripathi RN-MARINE EQUIPMENT SALES ENGINEER - 06/24/2019 13:47 EDT Narrative Progress Note Narrative Progress Note : Per ID note of 06/22: continue ceftriaxone 2 gm daily and plan on 8 weeks of therapy with PICC line in lifelong oral suppression. Otherwise, patient has been accepted by [facility] and we are awaiting bed availability, likely next week. CM will continue to follow. Historical Progress Note : RECEIVED CALL FROM [facility] WITH [facility]..PATIENT HAS BEEN ACCEPTED AND THEY WILL HAVE A BED SOMETIME NEXT WEEK..CM WILL CONTINUE TO FOLLOW AND INFORM DR DRIVER OF THE ABOVE..DEBORAH BENAVIDEZ RN-Smt Machine Operator - 06/23/19 11:45:46 RECEIVED CALL FROM [facility] WITH [facility]..PATIENT HAS BEEN ACCEPTED AND THEY WILL HAVE A BED SOMETIME NEXT WEEK..CM WILL CONTINUE TO FOLLOW AND INFORM DR DRIVER OF THE ABOVE..STEPHANIE SPOKE WITH PT AT BEDSIDE AND SHE IS AWARE THAT L-TACH HAS STARTED A PRECERT AND [facility]EF[facility] WILL HAVE BED AVAILABLE ON WEDNESDAY PENDING AUTHORIZATION..DR DRIVER AWARE..DEBORAH BENAVIDEZ RN-Smt Machine Operator - 06/23/19 17:11:55 Sent referral to LTACH through [facility]..........MIKE Adam RN-Smt Machine Operator - 06/21/19 16:57:54 Was planning for AKA, now patient will undergo a total joint revision with I&D. Will continue to follow.............MIKE Adam RN-Smt Machine Operator - 06/21/19 16:36:10 PICC line placed, Per LID, plan for residential IV abx. Surgery scheduled for today................MIKE Adam RN-Smt Machine Operator - 06/21/19 10:06:05 No MDR this AM with provider. Patient with low-grade fever this AM and throughout the night. MILOA was rescheduled for 06/20 for this reason. CM will continue to follow. Halima Tripathi RN-MARINE EQUIPMENT SALES ENGINEER - 06/20/19 11:50:51 Patient becoming more agitated and confused, refusing to wear oxygen. Patient now on CPAP, WBC increased, BC x2 positive for group b Strep. Dr Saenz to perform AKA tomorrow morning. Will continue to follow..............sds MIKE FRIEDMAN, EDDIE-Smt Machine Operator - 06/19/19 11:35:19 Halima Tripathi RN-MARINE EQUIPMENT SALES ENGINEER - 06/24/2019 13:47 EDT documented in this encounter Plan of Treatment Not on file documented as of this encounter Visit Diagnoses Not on filedocumented in this encounter
--- OUTSIDE RECORDS SUMMARY | 2024-08-09 13:24 | XMS_ITS | Encounter Summary ---
Author Organization [employer] Address [address] [place] [address] Care Team Providers Care Binding Dyer Name Role Phone Unavailable Primary Care Provider Unavailabl e Encounter Details Date Type Department Care Team (Late st Contact Info) Description 07/12/[address] [facility] [address] [place] [address] Shawanda Barahona MD [address] [place] [address] Social History Tobacco Use Types Packs/Day Years [...] Conversion Note - Shawanda Barahona MD - 07/12/2019 4:35 PM EDT Patient: SOFIA GILL Age: 79 [...] throat; no diarrhea; walking with physical therapy ros see hpi Objective Vitals Signs (last 24 hrs) Last Charted Minimum Maximum Temp 97.6 (JULY 12 07:00) 97.6 (JULY 12 07:00) 98.4 (JULY 11 15:45) Mon HR 68 (JULY 12 07:00) 68 (JULY 12 07:00) 91 (JULY 11:00) Resp Rate 18 (JULY 12 07:00) 15 (JULY 11 23:00) 18 (JULY 12:00) SBP H 148 (JULY 12:00) 108 (JULY 11:00) H 148 (JULY 12:00) DBP L 58 (JULY 12 07:00) L 42 (JULY 11:00) L 58 (JULY 12:00) MAP 61 (JULY 11 15:45) 61 (JULY 11 15:45) 61 (JULY 11 15:45) SpO2 99 (JULY 12:00) 96 (JULY 11:45) 100 (JULY 11:00) Physical Examination: Gen: Alert, arousable, pleasant HEENT: NC/AT, no ext oral lesions, no scleral icterus RESP:clear regino. CARD: s1s2 no mn GI: nondistended; soft/bs+Ve MS: 2+ edema bilaterally knees, rightknee c/d/i, left knee in brace SKIN: No eruptions, lesions, or rashes, PICC in place NEURO: No focal deficits; walking with walker Labs:Labs (Last four charted values) WBC 7.1 [...] (JULY 06) L 2.9 (JULY 05) Micro: [facility]: 06/15 [facility] Blood cultures positive for group B [...] line followed by chronic lifelong oral suppression -follow inflammatory markers esr 54 follow for adverse drug effects; diarrhea, elevated LFT's, fungal superinfection etc documented in this encounter Plan of Treatment Not on file documented as of this encounter Visit Diagnoses Not on filedocumented in this encounter
--- OUTSIDE RECORDS SUMMARY | 2024-08-09 13:24 | XMS_ITS | Encounter Summary ---
Author Organization [employer] Address [address] [place] [address] Care Team Providers Care Med Peds Name Role Phone Unavailable Primary Care Provider Unavailabl e Encounter Details Date Type Department Care Team (Late st Contact Info) Description 08/22/2020 Transcribed Document [facility] [place] Family Medicine [facility] [place] [address] ProviderMariela MD [facility] [place] [address] Social History Tobacco Use Types [...] Conversion Note - Historical ProviderMD - 08/22/2020 2:45 PM CDT Patient: SOFIA GILL Age: 80 years Sex: Female : 1940 Associated Diagnoses: Right knee pain; S/p R TKA revision; Status post quadriceps tendon repair; HTN (hypertension); Hypercholesteremia; Hypothyroid; Chronic venous insufficiency; A. fib; Sleep apnea; Obesity (BMI 30-39.9) Author: DONNA DRIVER MD-INT Basic Information awake alert comfortable, Complaining of right ankle pain from the cast rubbing against her skin. Dr. Saenz PA notified. Patient is noncompliant and refuses to ambulate Has a Castellano catheter will take it out and replace it with perwick Creatinine level elevated to 1.4 Preop creatinine level was 0.9 Hemoglobin 7.4 Review of Systems Constitutional: No fever, No chills. Eye: No discharge, No blurring, No double vision, No visual disturbances. Ear/Nose/Mouth/Throat: No nasal congestion, No sore throat. Respiratory: No shortness of breath, No cough. Cardiovascular: No chest pain, No palpitations. Gastrointestinal: No nausea, No vomiting. Genitourinary: No change in urine stream. Musculoskeletal: Negative. Integumentary: No rash, No pruritus. Neurologic: Alert and oriented X4. Health Status [...] EDT Chloraseptic Menthol 1.4% topical spray: 5 [place], Oral, [place], Q2H, PRN for Sore Throat, Routine, Start [...] EDT fluticasone 50 mcg/inh nasal spray: 2 [place], Nostrils Both, [place], BID, PRN for Allergies, Routine, Start 08/20/20 [...] Refill(s) fluticasone 50 mcg/inh nasal spray: 2 [place], Nostrils Both, [place], BID, PRN Allergies, 0 Refill(s) furosemide 40 [...] Oral, Daily fluticasone 0.05% nasal spray 2 [place], Nostrils Both, BID magnesium hydroxide 8% liq [...] Oral, Q4H phenol 1.4% throat spray 5 [place], Oral, Q2H promethazine 25 mg tab 12.5 [...] Review / Management Results review: All Results 08/22/2020 4:06 EDT Sodium Level 135 mmol/L [...] 7.4 Gram/dL LOW Hct 23.4 % LOW 08/21/2020 5:44 EDT Hgb 10.5 Gram/dL LOW Hct 32.2 % LOW . Condition: Stable. Impression and Plan Diagnosis Right [...] renal function, blood glucose, and urine output. Close monitoring H&H. Ambulation. Fall risk precautions. [facility] facility in a.m. if stable. documented in this encounter Plan of Treatment Not on file documented as of this encounter Visit Diagnoses Not on filedocumented in this encounter
--- OUTSIDE RECORDS SUMMARY | 2024-08-09 13:24 | XMS_ITS | Encounter Summary ---
Author Organization [employer] Address [address] [place] [address] Care Team Providers Care Semaphore Operator Name Role Phone Unavailable Primary Care Provider Unavailabl e Encounter Details Date Type Department Care Team (Late st Contact Info) Description 07/12/2019 Transcribed Document [facility] [place] Family Medicine [address] [place] [address] ProviderMariela MD [address] [place] [id number] Social History Tobacco Use Types Packs/Day Years Used Date Smoking Tobacco: Never Assessed Comments Unknown Sex and Gender Information Value Date Recorded Sex Assigned at Female 09/02/2021 8:57 PM CDT Legal Sex Female 6:58 PM CDT Gender Identity Female 09/02/2021 8:57 PM CDT Sexual Orientation Not on file documented as of this encounter Miscellaneous Notes * Cerner Conversion Note - Historical ProviderMD - 07/12/2019 2:00 AM CDT Wood Tool Maker Details Entered On: 07/12/2019 4:38 EDT Performed On: 07/12/2019 2:00 EDT by Bibi Gallagher, EDDIE Order Details Transport Mode Order Detail : Stretcher/Gurney Isolation Precautions Order Detail : Standard Precautions Order Detail : N/A IV Order Detail : 0 Oxygen Order Detail : 0 Nurse Collect Order Detail : 1 Lift/Transfer : Moderate assist Central Line Order Detail : Yes Room Service : Appropriate Arterial Line : No Bibi Gallagher, EDDIE - 07/12/2019 4:37 EDT documented in this encounter Plan of Treatment Not on file documented as of this encounter Visit Diagnoses Not on filedocumented in this encounter
--- OUTSIDE RECORDS SUMMARY | 2024-08-09 13:24 | XMS_ITS | Encounter Summary ---
Author Organization [employer] Address [address] [place] [address] Care Team Providers Care Handbag Framer Name Role Phone Unavailable Primary Care Provider Unavailabl e Encounter Details Date Type Department Care Team (Late st Contact Info) Description 07/19/2019 Transcribed Document [facility] [place] [facility] [place] [address] ProviderMariela MD [address] [place] [address] Social History Tobacco Use Types Packs/Day [...] Conversion Note - Mariela ProviderMD - 07/19/2019 2:03 PM CDT [address] [address] SOFIA GILL :1940 Visit Time:06/26/2019 Your Visit Summary Your Care Team Admitting Physician - DONNA DRIVER MD-INT Attending Physician - DONNA DRIVER MD-INT Referring Physician - DONNA DRIVER MD-INT Your Diagnosis Acute blood loss anemia status post transfusion of 3 units of packed RBCs BacteremiaDue to group B streptococcus agalactiae Cellulitis Of left knee Chronic venous insufficiency GERD (gastroesophageal reflux disease) Hypercholesterolemia Hypertension Hypoalbuminemia due to protein-calorie malnutrition Hypothyroidism 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 - Not met (Barriers: Pain) To get the infection taken care of and go home. - Not met What to do next Instructions From Your Care Team Discharge to [facility] 07/19/2019 @ 1400 (Maria L wheelchair van) Call report to [phone] Fax DC summary to [phone] Discharge Follow Up Instructions: F/U with dr cordova as kary.F/U with dr lopez as kary, Order Comment: Follow-up with PCP as scheduled or PRN Activity: PER DR MONAHAN RECOMMENDATIONS, Discharge Activity: Other (use Special Instructions) Diet: Discharge Diet: Resume usual diet as tolerated Follow-Up Appointments Follow Up with NIMO EPPS MD-ORT When 08/17/2019 01:30 PM EDT Comments Ortho follow-up Where: [address] [place] [address]- [phone] Follow Up with ARA STOCK MD-INF When 07/25/2019 04:00 PM EDT Comments ID Follow-up. TELEHEALTH appt with Dr. Stock. The office will call [facility] to facilitate this visit. Where: [address] [place] [address]- Follow Up with ANDREW OQUENDO MD-INT When Comments Admitting physician @ [facility] Where: Warfarin Instructions Notify Provider of Signs/Symptoms of: Significant bleeding, Clot Medications What How Much When Instructions Next Dose acetaminophen-hydrocodone ([place] 7.5 mg-325 mg oral tablet) 1 Tablet(s) Oral Every 4 Hours Duration: 3 Day(s) cefTRIAXone (cefTRIAXone 2 g intravenous injection) 2 Gram(s) IntraVENous Every Day Duration: 14 Day(s) docusate 100 Milligram(s) Oral Every Day docusate-senna (Senokot S) 2 Tablet(s) Oral At Bedtime gabapentin (gabapentin 300 mg oral capsule) 1 Capsule(s) Oral At Bedtime Duration: 3 Day(s) loratadine (loratadine 10 mg oral tablet) 1 Tablet(s) Oral Every Day multivitamin (Multiple Vitamins oral capsule) Oral Every Day pantoprazole (Protonix 40 mg oral delayed release tablet) 1 Tablet(s) Oral Every Day saccharomyces boricdii lyo (Florastor 250 mg oral capsule) 1 Capsule(s) Oral Every Day warfarin (warfarin 2 mg oral tablet) 1 Tablet(s) Oral Every Day aspirin (Aspir 81 oral delayed release tablet) 1 Tablet(s) Oral Every Day cyanocobalamin (cyanocobalamin 5000 mcg oral tablet, extended release) 1 Tablet(s) Oral Every Day DULoxetine (Cymbalta 60 mg oral delayed release capsule) 1 Capsule(s) Oral Every Day (do not crush or chew) fluticasone nasal (fluticasone 50 mcg/ inh nasal spray) 2 [place](s) Nostrils Both Two Times A Day as needed for Allergies levothyroxine (Synthroid 100 mcg (0.1 mg) oral tablet) 1 Tablet(s) Oral Every Day lisinopril (lisinopril 10 mg oral tablet) 1 Tablet(s) Oral Every Day magnesium oxide (magnesium oxide 250 mg oral tablet) 2 Tablet(s) Oral Two Times A Day gets over the counter potassium chloride (potassium chloride 20 mEq oral [...] (Itching) Immunizations This Visit No Immunizations Found Stroke/TIA Instructions Individualized Stroke Risk Factors Individualized Stroke Risk Factors *Q: Obesity Stroke/TIA Signs/Symptoms to Report Immediately: Sudden onset difficulty speaking, Sudden onset difficulty understanding speech, Sudden onset change in vision, Sudden onset weakness particulary on one side of the body, Sudden onset numbness/tingling, Sudden severe headache, Sudden dizziness or trouble with gait, Call : EMS activation is crucial Mutually Agreed Upon Goals My LDL Level: My LDL Level: Education Materials What You Need to Know About Warfarin [...] your INR checked at least once every 4???6 weeks for the entire time you are [...] of beer, 5 oz of wine, or 1?? oz of hard liquor. ? If you [...] other medicines or supplements? Many prescription and hcdu-cav-jypomdt medicines can interfere with warfarin. Talk with your health care provider or your pharmacist before starting or stopping any new medicines. This includes zwns-kha-zxvfsfh vitamins, dietary supplements, herbal medicines, and pain medicines. Your warfarin dosage may need to be adjusted. ??? Some common sqlt-bgs-kesdoux medicines that may increase the risk of [...] that you work with a diet and employment specialist (dietitian). ??? Vitamin K decreases the effect [...] cooked. ??? Collards, raw or cooked. ??? Eritrean chard, raw or cooked. ??? Mustard greens, raw or cooked. ??? Turnip greens, raw or cooked. ??? Parsley, raw. ??? Broccoli, cooked. ??? Noodles, eggs, and spinach, enriched. ??? [place] sprouts, raw or cooked. ??? Beet greens, [...] diet. ??? You start or stop any unuq-fxo-qylkytm medicine, prescription medicine, or dietary supplement. ??? [...] 02/15/2006 Document Revised: 06/21/2017 Document Reviewed: 05/13/2016 [employer] Interactive Patient Education ?? 2019 [employer]. Hypertension, Adult High blood pressure (hypertension) is [...] Limit how much you use to: ? 0???1 drink a day for women. ? 0???2 drinks a day for men. ? Be aware of how much alcohol is in your drink. In the [place] one drink equals one 12 oz bottle of beer (355 mL), one 5 oz glass of wine (148 mL), or one 1?? oz glass of hard liquor (44 mL). [...] provider. This is important. Medicines ??? Take aglm-utk-scktiop and prescription medicines only as told by [...] 02/15/2006 Document Revised: 10/26/2018 Document Reviewed: 10/26/2018 [employer] Interactive Patient Education ?? 2019 [employer] How to Use a Knee Immobilizer [...] 02/15/2006 Document Revised: 02/01/2017 Document Reviewed: 02/01/2017 [employer] Interactive Patient Education ?? 2019 [employer]. Emergency Awareness and Preventative Care STROKE is [...] Assistance with quitting is available by contacting 8-581-QNBK-NOW. This is a free resource providing counseling, [...] and how to prevent infections, visit www.cdc.gov/sepsis. Test Results Laboratory or Other Results This Visit (last charted value for your 06/26/2019 visit) Hematology 07/17/2019 5:01 AM WBC: 8.2 K/uL -- Normal range between ( 4.5 and 10.5 ) RBC: 2.63 Million/uL -- Normal range between ( 3.93 and 5.22 ) Hct: 25.5 % -- Normal range between ( 34.1 and 44.9 ) Hgb: 8.0 g/dL -- Normal range between ( 11.2 and 15.7 ) Platelet Count: 451 K/uL -- Normal range between ( 163 and 369 ) MCH: 30.4 pg -- Normal range between ( 25.6 and 32.2 ) MCHC: 31.4 Gram/dL -- Normal range between ( 32.2 and 36.5 ) MCV: 97.0 fL -- Normal range between ( 79.0 and 94.8 ) Slide Review: No Eos %: 5.8 % -- Normal range between ( 0.0 and 7.0 ) Gibson #: 0.79 K/uL -- Normal range between ( 0.16 and 1.00 ) Eos #: 0.47 x10(3)/uL -- Normal range between ( 0.00 and 0.80 ) Gibson %: 9.7 % -- Normal range between ( 3.0 and 9.0 ) Baso %: 0.4 % -- Normal range between ( 0.0 and 1.5 ) Baso #: 0.03 x10(3)/uL -- Normal range between ( 0.00 and 0.20 ) RDW: 13.0 % -- Normal range between ( 11.7 and 14.9 ) Neut %: 61.9 % -- Normal range between ( 34.0 and 71.0 ) Neut #: 5.06 K/uL -- Normal range between ( 1.56 and 6.13 ) Lymph %: 21.2 % -- Normal range between ( 19.3 and 53.1 ) Lymph #: 1.73 x10(3)/uL -- Normal range between ( 1.00 and 3.90 ) MPV: 8.6 fL -- Normal range between ( 9.4 and 12.4 ) IG#: 0.08 x10(3)/uL -- Normal range between ( 0.00 and 0.05 ) IG%: 1.00 % -- Normal range between ( 0.00 and 0.60 ) 07/10/2019 5:30 AM Sed Rate Auto: 54 mm/Hr -- Normal range between ( 0 and 30 ) Microbiology 07/18/2019 1:14 PM Novel Coronavirus 2019: Not Detected General Chemistry 07/17/2019 5:01 AM Creatinine Level: 0.80 mg/dL -- Normal range between ( 0.55 and 1.02 ) Sodium Level: 139 mmol/L -- Normal range between ( 136 and 146 ) Potassium Level: 4.4 mmol/L -- Normal range between ( 3.5 and 5.1 ) Chloride Level: 103 mmol/L -- Normal range between ( 102 and 112 ) Carbon Dioxide Level: 30 mmol/L -- Normal range between ( 21 and 32 ) Anion Gap: 10 -- Normal range between ( 9 and 20 ) Bilirubin Total: 0.2 mg/dL -- Normal range between ( 0.2 and 1.2 ) A/G Ratio: 0.5 -- Normal range between ( 1.1 and 2.5 ) ALT: 12 Units/Liter -- Normal range between ( 13 and 56 ) AST: 14 Units/Liter -- Normal range between ( 5 and 37 ) Globulin: 4.9 Gram/dL -- Normal range between ( 1.5 and 4.5 ) Alk Phos: 57 Units/Liter -- Normal range between ( 27 and 136 ) Bun/Creatinine: 47.5 -- Normal range between ( 8.0 and 20.0 ) Calcium Level: 8.7 mg/dL -- Normal range between ( 8.4 and 10.1 ) eGFR : >60 mL/min/1.73m2 eGFR NonAfrican: >60 mL/min/1.73m2 Glucose Level: 114 mg/dL -- Normal range between ( 74 and 106 ) Blood Urea Nitrogen: 38 mg/dL -- Normal range between ( 7 and 22 ) Protein Total: 7.3 Gram/dL -- Normal range between ( 6.4 and 8.2 ) Albumin Level: 2.4 Gram/dL -- Normal range between ( 3.4 and 5.0 ) 07/10/2019 5:30 AM CRP: 8.8 mg/dL -- Normal range between ( 0.0 and 0.9 ) Uric Acid: 5.6 mg/dL -- Normal range between ( 2.6 and 6.0 ) Coagulation 07/19/2019 5:48 AM INR: 1.1 -- Normal range between ( 0.9 and 1.1 ) PT: 11.9 Second(s) -- Normal range between ( 9.6 and 12.0 ) Iron Studies 07/10/2019 5:30 AM % Iron Saturation: 9.2 % -- Normal range between ( 15.0 and 55.0 ) Ferritin Level: 206.3 ng/mL -- Normal range between ( 8.0 and 252.0 ) TIBC: 381.0 mcg/dL -- Normal range between ( 250.0 and 450.0 ) Iron Level: 35 mcg/dL -- Normal range between ( 50 and 170 ) Protein & Immunoglobulin Studies 07/17/2019 5:01 AM Prealbumin: 16.5 mg/dL -- Normal range between ( 20.0 and 40.0 ) Vitamin Chemistry 07/10/2019 5:30 AM Folate Level: >20.00 ng/mL -- Normal range between ( 3.10 and 17.50 ) Vitamin B12 Level: 2958 pg/mL -- Normal range between ( 193 and 986 ) Patient Name:SOFIA GILL I have received and understand this information and was given the opportunity to ask questions. Patient/Field Assistant Name: Patient/Field Assistant Signature: Relationship to Patient: Clinician/Hospital Field Assistant Signature: Date: documented in this encounter Plan of Treatment Not on file documented as of this encounter Visit Diagnoses Not on filedocumented in this encounter
--- OUTSIDE RECORDS SUMMARY | 2024-08-09 13:24 | XMS_ITS | Encounter Summary ---
Author Organization [employer] Address [address] [place] [address] Care Team Providers Care Scale Operator Name Role Phone Unavailable Primary Care Provider Unavailabl e Encounter Details Date Type Department Care Team (Late st Contact Info) Description 08/22/2020 Transcribed Document [facility] [place] Medicine [facility] [place] [address] ProviderMariela MD [address] [place] [address] Social History Tobacco Use Types Packs/Day [...] Conversion Note - Historical ProviderMD - 08/22/2020 6:22 AM CDT Event Note Entered On: 08/22/2020 6:25 EDT Performed On: 08/22/2020 6:22 EDT by Caitlyn Fallon Rn Event Note Event Date/Time : 08/22/2020 6:22 EDT Event Location : Assigned room Event Details : Other: see description Description of Event : Informed pt that she needed a blood transfusion per standing order and explained the details. Pt signed informed consent and I witnessed and placed in chart. I pre-medicated pt with tylenol and benadryl per MD orders. Went into pt room to shuttle veneering supervisor fluids and pt asked her blood type. I informed pt what the results were and she said that last time it was something different so she didn't want a transfusion until she talked to the doctor and they re-did her bloodwork. Charge nurse informed, will pass info along to receiving nurse Caitlyn Fallon Rn - 08/22/2020 6:22 EDT documented in this encounter Plan of Treatment Not on file documented as of this encounter Visit Diagnoses Not on filedocumented in this encounter
--- OUTSIDE RECORDS SUMMARY | 2024-08-09 13:24 | XMS_ITS | Encounter Summary ---
Author Organization [employer] Address [address] [place] [address] Care Team Providers Care Patient Portal Concierge Name Role Phone Unavailable Primary Care Provider Unavailabl e Encounter Details Date Type Department Care Team (Late st Contact Info) Description 06/27/2019 Transcribed Document [facility] [place] [address] [place] [address] ProviderMariela MD [address] [place] [address] Social History Tobacco Use Types Packs/Day Years [...] Conversion Note - Historical ProviderMD - 06/27/2019 10:09 AM CDT Interdisciplinary Rounds Entered On: 06/27/2019 10:10 EDT Performed On: 06/27/2019 10:09 EDT by MASSIEL HENDERSON PharmD, DURGA Interdisciplinary Rounds Working Summary Pharmacist Interdisciplinary Rounds Note : Patient on Ceftriaxone for left TKR sepsis. Clarified patient's penicillin allergy as not anaphylactic and has tolerated CTX in past. MASSIEL HENDERSON PharmD, BCPS - 06/27/2019 10:09 EDT Electronically signed by Maureen Cornejo Conversion Adult Basic Education Manager Cerner at 06/16/2022 8:27 PM CDT documented in this encounter Plan of Treatment Not on file documented as of this encounter Visit Diagnoses Not on filedocumented in this encounter
--- OUTSIDE RECORDS SUMMARY | 2024-08-09 13:24 | XMS_ITS | Encounter Summary ---
Author Organization [employer] Address [address] [place] [address] Care Team Providers Care Convertible Sofa Bedspring Tester Name Role Phone Unavailable Primary Care Provider Unavailabl e Encounter Details Date Type Department Care Team (Late st Contact Info) Description 06/28/2019 Transcribed Document [facility] [place] [address] [place] [address] ProviderMariela MD [address] [place] [address] Social History Tobacco Use Types Packs/Day Years [...] Conversion Note - Historical ProviderMD - 06/28/2019 8:33 AM CDT Care Management Assessment/Plan Entered On: 06/28/2019 8:35 EDT Performed On: 06/28/2019 8:33 EDT by YOANNA ARAUJO RN Care Management Note Care Management Note : Yoanna Araujo 06/28/2019 0830 Faxed clinical review to [facility] at to request approval for extended Ltac services. Auth#[id number]. Pending Approval. Documentation Status Complete : Yes YOANNA ARAUJO RN - 06/28/2019 8:33 EDT documented in this encounter Plan of Treatment Not on file documented as of this encounter Visit Diagnoses Not on filedocumented in this encounter
--- OUTSIDE RECORDS SUMMARY | 2024-08-09 13:24 | XMS_ITS | Encounter Summary ---
Author Organization [employer] Address [address] [place] [address] Care Team Providers Care Kaiako Kura Kaupapa Maori Name Role Phone Unavailable Primary Care Provider Unavailabl e Encounter Details Date Type Department Care Team (Late st Contact Info) Description 07/19/2019 Transcribed Document [facility] [place] Family Medicine [facility] [place] [address] ProviderMariela MD [address] [place] [address] Social History Tobacco Use Types [...] Conversion Note - Historical ProviderMD - 07/19/2019 2:40 PM CDT Care Management Assessment/Plan Entered On: 07/19/2019 14:41 EDT Performed On: 07/19/2019 14:40 EDT by СВЕТЛАНА WANG Care Management Note Care Management Note : 07/19/2019 Discharge summary faxed to [facility] Medicare. Auth#[id number]. Care Management Note Report : СВЕТЛАНА WANG - 07/19/19 09:16:16 07/19/2019 Patient went to appointment with Dr. Saenz yesterday, came back with a follow-up appointment scheduled for 08/17/2019 @ 4850. СВЕТЛАНА WANG - 07/17/19 13:41:45 07/17/2019 Call received from Tati Erickson [facility], with approval for LTAC services. Last covered date 07/18/2019 with anticipated DC on 07/19/2019. Please fax DC summary on date of discharge. Auth#[id number]. СВЕТЛАНА WANG - 07/17/19 11:32:16 07/17/[address] Snyder (ID), he is in agreement to discharge to SNF on Wednesday, he would like for her to follow-up with the consulting ID (Dr. Stock) in 1 week upon discharge. TELEHEALTH appointment scheduled with Dr. Stock for 07/25/2019 @ 1600. [facility] will call Lexy to facilitate this visit. СВЕТЛАНА WANG - 07/17/19 10:32:31 07/17/2019 faxed clinical review the [facility] at [phone] to request approval for extended ltac services. Auth#[id number], awaiting approval. CM/Discharge plan attached to review. PEDRITO WANGLESPeterson - 07/17/19 09:06:05 07/17/[address] Jaffe's progress note, yahaira may be removed if okay with Dr. Saenz's office. Per our WOCN, Dr. Saenz's office said they need to see her before they make that decision. Appt scheduled for tomorrow, 07/18/2019 @ 1415; [facility] round-trip transport scheduled for 1315 pick-up ([id number]). Spoke with Lexy Valdez, they have not yet began the patient's insurance preauth, they will today, and be ready to admit on Wednesday. Dr. Jaffe notified and in agreement. [facility] rescheduled for discharge 07/19/2019 @ 1400 ([id number]). YOANNA ARAUJO RN - 07/14/19 15:41:31 Yoanna Araujo 07/13/2019 1500 - patient has accepted bed offer at [facility], she will be transported on WednesdayJuly 16 at 2pm by [facility] Confirmation # [id number]. She declined the bed offer at [facility]. Jaffe notified of discharge plan. YOANNA ARAUJO RN - 07/13/19 14:37:44 Yoanna Araujo 07/13/2019 1400 received call from Ratna with [facility] offering patient a bed, Received call from Isabelle with [facility] she is looking at patient and needed a current height and weight. Still waiting to see if any other bed offers come through. I also sent referral to [facility]. YOANNA ARAUJO RN - 07/13/19 11:04:03 Yoanna Araujo 07/13/2019 1100 faxed out referral for placement for patient to [facility], [facility] and triology facilities. Awaiting call backs. СВЕТЛАНА WANG - 07/12/19 12:19:17 07/12/2019 Fax received from [facility] with approval for LTAC services with a request for updated discharge plans and clinical info to support needs if not discharged. Auth#[id number]. Clinical review or discharge summary to be faxed by 07/17/2019. YOANNA ARAUJO RN - 07/12/19 08:39:48 Yoanna Araujo 07/12/2019 0830 - faxed clinical review the [facility] at [phone] to request approval for extended ltac services. Auth#[id number], awaiting approval. YOANNA ARAUJO RN - 06/29/19 [...] falls. She denies ever requiring dialysis. She [facility] and she has been to the [place] [facility] and [facility] in the past. She has the following equipment at home: wheel chair, walker, cane and shower chair. Her discharge plan is to go to rehab prior to returning home. PCP: Flavia MARQUEZ [address] [place], [place] [id number] Yarder: Dr. Shemar Barger [facility] [address] [address] [address] Clemente Del Rio MD - Rheumatology - [address] [place] [address] Preferences: Home Health: [facility]: no preferences DME: [facility] - [address] [address] Fci: [facility] facility: no preferences Will continue to monitor patient for anticipated discharge needs YOANNA ARAUJO, RN - 06/29/19 08:30:20 Yoanna Araujo 06/29/2019 0830 received fax from [facility] with approval for extended ltac coverage with next clinical review due on 07/12/2019. Auth#[id number]. Will continue to follow for anticipated discharge needs. YOANNA ARAUJO RN - 06/28/19 08:35:06 Yoanna Araujo 06/28/2019 0830 Faxed clinical review to [facility] at to request approval for extended Ltac services. Auth#[id number]. Pending Approval. Documentation Status Complete : Yes СВЕТЛАНА WANG - 07/19/2019 14:40 EDT Electronically signed by Maureen Cornejo Conversion Sap [employer]ico Business Analyst T[employer] at 06/16/2022 8:12 PM CDT documented in this encounter Plan of Treatment Not on file documented as of this encounter Visit Diagnoses Not on filedocumented in this encounter
--- OUTSIDE RECORDS SUMMARY | 2024-08-09 13:25 | XMS_ITS | Encounter Summary ---
Author Organization [employer] Address [address] [place] [address] Care Team Providers Care Roll Setter Name Role Phone Unavailable Primary Care Provider Unavailabl e Encounter Details Date Type Department Care Team (Late st Contact Info) Description 06/28/2019 Transcribed Document [facility] [place] [facility] [place] [address] ProviderMariela MD [address] [place] [address] Social History Tobacco Use Types Packs/Day [...] Conversion Note - Historical ProviderMD - 06/28/2019 2:39 PM CDT [facility] Inpatient Documentation Entered On: 06/28/2019 14:39 EDT Performed On: 06/28/2019 14:39 EDT by TAN BRYANT RN WO Admission Date : Admit Date 06/26/2019 18:[address] : Diagnosis (15) Infection and inflammatory reaction due to other internal prosthetic devices, implants and grafts, initial encounter Bacteremia Sepsis, unspecified organism Cellulitis, unspecified Unspecified osteoarthritis, unspecified site Anemia, unspecified Acute kidney failure, unspecified Hypothyroidism, unspecified Essential (primary) hypertension Pure hypercholesterolemia, unspecified Cardiac murmur, unspecified Gastro-esophageal reflux disease without esophagitis Obstructive sleep apnea (adult) (pediatric) Morbid (severe) obesity due to excess calories Venous insufficiency (chronic) (peripheral) Reason for WO Visit : Assessment, ongoing, Dressing change Admitting Diagnosis ST : Reason for Admission CELLULITIS, UNSPECIFIED TAN BRYANT RN - 06/28/2019 14:39 EDT Wound & Pressure Ulcer WOCN Wound Pressure Ulcer Documentation : [id number] Abnormality: Knee Left on 06/28/2019 14:37 by TAN BRYANT RN I/W/A Present on Admission to Hospital: Yes I/W/A Type: Incision, closed I/W/A Dressing Status: Intact I/W/A Dressing Activity: Dressing changed I/W/A Wound Bed Description: Closed/Resurfaced, Skin glued, Steri-strips present I/W/A Wound Edge: Approximated I/W/A Drainage Amount: None I/W/A Photographed: Yes I/W/A Dressing Type/Treatment: Gauze dressing I/W/A Incision/Wound Comment: per order do not loosen or remove immobilizer dressing very difficult and took 2 staff members, inc dry with steri strips see photos Getvejbsg-Jthvlw-Xktv Abnormality: Other: gluteal cleft on 06/27/2019 11:39 by TAN BRYANT RN I/W/A Type: Moisture associated skin damage (MASD) I/W/A Present on Admission to Hospital: Yes I/W/A Wound Bed Description: Full-thickness, Other: linear I/W/A Bed Color(s): Red WOCN Ostomy Documentation : No ostomy assessments reported. TAN BRYANT RN - 06/28/2019 14:39 EDT Electronically signed by Nikunj Cornejo Conversion Retail Loss Prevention Officer Cerner at 06/16/2022 8:18 PM CDT documented in this encounter Plan of Treatment Not on file documented as of this encounter Visit Diagnoses Not on filedocumented in this encounter
--- OUTSIDE RECORDS SUMMARY | 2024-08-09 13:25 | XMS_ITS | Encounter Summary ---
Author Organization [employer] Address [address] [place] [address] Care Team Providers Care Boat Outboard Engine Mechanic Name Role Phone Unavailable Primary Care Provider Unavailabl e Encounter Details Date Type Department Care Team (Late st Contact Info) Description 08/22/2018 Transcribed Document [facility] [place] [facility] [place] [address] ProviderMariela MD [facility] [place] [address] Social History Tobacco Use Types [...] Cerner Conversion Note - Historical ProviderMD - 08/22/2018 12:12 PM CDT Pain Assessment Entered On: 08/24/2018 5:49 EDT Performed On: 08/24/2018 5:43 EDT by Nishi Osuna RN Intervention Information: oxyCODONE Performed by Nishi Osuna RN on 08/24/2018 04:43:00 EDT oxyCODONE,10mg Oral,Pain (Severe 7-10) Pain Assessment Pain Assessment : Follow-up assessment Pain Scale Goal : 3 Pain Scale Used : 0-10 Scale Pain Intervention, Drug : Medicated Pain Improved by Intervention : Yes Nishi Osuna RN - 08/24/2018 5:48 EDT Pain Scale Intensity : 0 Nishi Osuna RN - 08/24/2018 5:48 EDT Image 4 - Images currently included in the form version of this document have not been included in the text rendition version of the form. documented in this encounter Plan of Treatment Not on file documented as of this encounter Visit Diagnoses Not on filedocumented in this encounter
--- OUTSIDE RECORDS SUMMARY | 2024-08-09 13:25 | XMS_ITS | Encounter Summary ---
Author Organization [employer] Address [address] [place] [address] Care Team Providers Care Insect Control Aide Name Role Phone Unavailable Primary Care Provider Unavailabl e Encounter Details Date Type Department Care Team (Late st Contact Info) Description 07/13/2019 Transcribed Document [facility] [place] [address] [place] [address] ProviderMariela MD [address], [place] [id number] Social History Tobacco Use Types Packs/Day Years [...] Note - Historical ProviderMD - 07/13/2019 5:00 AM CDT Chart Check - Review Order Profile Entered On: 07/13/2019 4:35 EDT Performed On: 07/13/2019 5:00 EDT by Bibi Gallagher RN Chart Check Powerplans Initiated/Discontinued as Appropriate : Yes All Active Orders Reviewed : Yes Bibi Gallagher, EDDIE - 07/13/2019 4:34 EDT documented in this encounter Plan of Treatment Not on file documented as of this encounter Visit Diagnoses Not on filedocumented in this encounter
--- OUTSIDE RECORDS SUMMARY | 2024-08-09 13:25 | XMS_ITS | Encounter Summary ---
Author Organization [employer] Address [address] [place] [address] Care Team Providers Care Printer Maintainer Name Role Phone Unavailable Primary Care Provider Unavailabl e Encounter Details Date Type Department Care Team (Late st Contact Info) Description 07/13/2019 Transcribed Document [facility] [place] [facility] Family Medicine [address] [place] [address] ProviderMariela MD [address] [place] [address] Social History Tobacco Use Types Packs/Day Years [...] Note - Historical ProviderMD - 07/13/2019 9:00 AM CDT Pain Assessment Entered On: 07/13/2019 13:51 EDT Performed On: 07/13/2019 11:04 EDT by Caitlyn Chauhan Rn Intervention Information: indomethacin Performed by Caitlyn Chauhan Rn on 07/13/2019 10:04:00 EDT indomethacin,25mg Oral Pain Assessment Pain Assessment : Follow-up assessment Pain Intervention, Drug : Medicated Pain Improved by Intervention : Yes Caitlyn Chauhan Rn - 07/13/2019 13:51 EDT Electronically signed by Maureen Cornejo Conversion Hot Plate Plywood Press Offbearer Cerner at 06/16/2022 8:23 PM CDT documented in this encounter Plan of Treatment Not on file documented as of this encounter Visit Diagnoses Not on filedocumented in this encounter
--- OUTSIDE RECORDS SUMMARY | 2024-08-09 13:25 | XMS_ITS | Encounter Summary ---
Author Organization [employer] Address [address] [place] [address] Care Team Providers Care Regional Facilities Specialist Name Role Phone Unavailable Primary Care Provider Unavailabl e Encounter Details Date Type Department Care Team (Late st Contact Info) Description 06/17/2019 Transcribed Document [facility] Family [facility] [place] [address] ProviderMariela MD [address] [place] [address] Social History Tobacco Use Types [...] Cerner Conversion Note - Historical ProviderMD - 06/17/2019 12:08 AM CDT Nutrition Assessment Entered On: 06/19/2019 12:46 EDT Performed On: 06/19/2019 15:58 EDT [address] Oma Berg RD, MIKE Nutrition Assessment Nutrition Assessment Reason : Automatic referral Oma Berg RD, LD - 06/19/2019 12:46 EDT Nutrition Recommendations Dietitian Recommendations : (06/18) RD consult rec'd for BMI >40. Pt admitted due to left prothetic knee infection. Plans for AKA tomorrow. Pt is on a regular diet, intake being established. Labs and meds reviewed. No skin breakdown or GI issues noted. RD will check on in 2-3 days for intake establishment or available prn. Oma Berg RD, LD - 06/19/2019 15:57 EDT documented in this encounter Plan of Treatment Not on file documented as of this encounter Visit Diagnoses Not on filedocumented in this encounter
--- OUTSIDE RECORDS SUMMARY | 2024-08-09 13:25 | XMS_ITS | Encounter Summary ---
Author Organization [employer] Address [address] [place] [address] Care Team Providers Care Burlap Man Name Role Phone Unavailable Primary Care Provider Unavailabl e Encounter Details Date Type Department Care Team (Late st Contact Info) Description 07/13/2019 Transcribed Document [facility] [place] [facility] [address] ProviderMariela MD [address] [place] [address] Social History Tobacco Use Types [...] Conversion Note - Historical ProviderMD - 07/13/2019 10:05 AM CDT Discharge Summary, OT Entered On: 07/13/2019 14:16 EDT Performed On: 07/13/2019 10:05 EDT by NILA RAMAN OTR/Bartolo Discharge Summary, OT Reason for Discharge : Patient self-discharge Discharge Summary Comment, OT : Given LH sponge, leg screedman and bun panner for ADLs in room. Declines further practice from OT. Will sign off at this time. NILA RAMAN OTR/Bartolo - 07/13/2019 14:14 EDT Usp Goals, OT Bathing LTG Grid Goal #1 Activity : Bathing, Upper Extremity Assist : Assist, minimal Date to Meet : 07/25/2019 EDT Goal Status : Not met Comment : * Per Cherie pt is not to take brace off at all. NILA RAMAN OTR/L - 07/13/2019 14:14 EDT Dressing, Lower Body LTG Grid Goal #1 Activity : Dressing, Lower Body Assist : Assist, moderate Date to Meet : 07/25/2019 EDT Goal Status : Not met Comment : * NILA BLAIR, OTR/Bartolo - 07/13/2019 14:14 EDT Toilet Transfer LTG Grid Goal #1 Goal #2 Activity : Toilet Transfer, Stand Pivot Sit Toilet Transfer, Ambulatory Assist : Assist, minimal Supervision or set up Date to Meet : 07/11/2019 EDT 07/25/2019 EDT Goal Status : Goal met Goal met Date Met : 07/11/2019 EDT 07/13/2019 EDT NILA RAMAN, VAHIDR/Bartolo - 07/13/2019 14:14 EDT NILA RAMAN, OTR/L - 07/13/2019 14:14 EDT Bed Mobility/ Bed Transfer LTG Grid Goal #1 Activity : Bed Mobility/Bed Transfer Assist : Independent, modified Date to Meet : 07/25/2019 EDT Goal Status : Goal met Date Met : 07/13/2019 EDT NILA RAMAN, OTR/L - 07/13/2019 14:14 EDT documented in this encounter Plan of Treatment Not on file documented as of this encounter Visit Diagnoses Not on filedocumented in this encounter
--- OUTSIDE RECORDS SUMMARY | 2024-08-09 13:25 | XMS_ITS | Encounter Summary ---
Author Organization [employer] Address [address] [place] [address] Care Team Providers Care Carrot Grader Inspector Name Role Phone Unavailable Primary Care Provider Unavailabl e Encounter Details Date Type Department Care Team (Late st Contact Info) Description 06/28/2019 Transcribed Document [facility] [place] [address] [place] [address] ProviderMariela MD [address] [place] [address] Social History Tobacco Use Types Packs/Day Years [...] Conversion Note - Historical ProviderMD - 06/28/2019 9:04 AM CDT Interdisciplinary Rounds Entered On: 06/28/2019 9:05 EDT Performed On: 06/28/2019 9:04 EDT by Daniella Hunt Dietitian Interdisciplinary Rounds Working Summary Dietitian Interdisciplinary Rounds Note : regular + ensure BID 75% x 7 meals LBM 06/25 Daniella Hunt Dietitian - 06/28/2019 9:04 EDT documented in this encounter Plan of Treatment Not on file documented as of this encounter Visit Diagnoses Not on filedocumented in this encounter
--- OUTSIDE RECORDS SUMMARY | 2024-08-09 13:25 | XMS_ITS | Encounter Summary ---
Author Organization [employer] Address [address] [place] [address] Care Team Providers Care Air Defense Specialist Name Role Phone Unavailable Primary Care Provider Unavailabl e Encounter Details Date Type Department Care Team (Late st Contact Info) Description 06/28/2019 Transcribed Document [facility] [place] [address] ProviderMariela MD [address] [place] [address] Social History Tobacco Use Types [...] Note - Historical ProviderMD - 06/28/2019 9:00 AM CDT CareSet Assessment Admission, [facility] Entered On: 06/28/2019 15:36 EDT Performed On: 06/28/2019 9:00 EDT by [facility]OR [facility] Persistent Veg State/No Consciousness : No Expression of Ideas and Wants : Expresses complex messages without difficulty and with clear easy to understand speech Understanding of Verbal Content : Understands Ac Change in Mental Status from Baseline : No ABN Behavior Fluctuates During the Day : Yes Recommend Continued Therapy at Discharge : No Disorganized or Incoherent Thinking : Yes Level of Consciousness is Alert (Normal) : Yes LOC Vigilant, Lethargic, Stupor or Coma : No Bladder Continence : Always continent Bowel Continence : Always continent Special Tx Procedures and Programs : None Mobility Assistance Prior to Admission : Independent Home Equipment : None TOR ADAMES RN - 06/28/2019 15:32 EDT Electronically signed by Chantal, [facility] Conversion Lard Renderer Cerner at 06/16/2022 8:20 PM CDT documented in this encounter Plan of Treatment Not on file documented as of this encounter Visit Diagnoses Not on filedocumented in this encounter
--- OUTSIDE RECORDS SUMMARY | 2024-08-09 13:25 | XMS_ITS | Encounter Summary ---
Author Organization [employer] Address [address] [place] [address] Care Team Providers Care Loading Dock Helper Name Role Phone Unavailable Primary Care Provider Unavailabl e Encounter Details Date Type Department Care Team (Late st Contact Info) Description 06/28/2019 Transcribed Document [facility] [place] [facility] [place] [address] ProviderMariela MD [facility] [place] [address] Social History Tobacco Use Types [...] Conversion Note - Historical ProviderMD - 06/28/2019 2:40 PM CDT Interdisciplinary Rounds Entered On: 06/28/2019 14:40 EDT Performed On: 06/28/2019 14:40 EDT by TAN BRYANT RN Interdisciplinary Rounds Working Summary WO Interdisciplinary Rounds Note : 06/27: 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
--- OUTSIDE RECORDS SUMMARY | 2024-08-09 13:25 | XMS_ITS | Encounter Summary ---
Author Organization [employer] Address [address] [place] [id number] Care Team Providers Care Property Man Name Role Phone Unavailable Primary Care Provider Unavailabl e Encounter Details Date Type Department Care Team (Late st Contact Info) Description 06/17/2019 Transcribed Document [facility] [place] [facility] [address] ProviderMariela MD [address] [place] [id number] Social History Tobacco Use Types Packs/Day [...] Conversion Note - Historical ProviderMD - 06/17/2019 11:14 PM CDT Patient: SOFIA GILL Age: 79 years Sex: Female : 1940 Associated Diagnoses: Chronic venous insufficiency; Osteoarthritis; Sleep apnea; Sepsis; Left prothetic knee infection; Hypercholesteremia; Left knee pain; Elevated procalcitonin; Morbid obesity with BMI of 40.0-44.9, adult; Hypothyroid; Hypokalemia; Hyponatremia; GERD (gastroesophageal reflux disease); HTN (hypertension); Leucocytosis; ESR raised; CRP elevated; Left knee cellulitis; Murmur, cardiac; Bacteremia due to group B Streptococcus agalactiae; Acute kidney injury Author: DONNA JAFFE MD-INT Date of Admission : 06/16/2019 Orthopedic surgeon : Fan Moise MD Infectious Disease : Musa Giron MD Admitting Physician : [facility] medicine :Internal Medicine : Donna Jaffe MD Admission Diagnosis 1- Marti-prothetic Lt knee infection 2-Lt knee pain 3-Group B strept. Agalactiae Bacteremia 4-Left knee cellulitis 5-Sepsis 6-Increase Procalcitonin 7-Cardiac Murmur can't R/O endocarditis 8-Hponatremia 9-Hyperkalemia 10-NOLBERTO 11-Leucocytosis 12-Raised ESR 13-CRP elevated 14-SHERRY 15-Morbid Obesity with BMI 40.9 16-HTN 17-Hypercholesterolemia 18-Chronic Venous insufficiency 19-Bilateral LEs edema 20-Hypothyroidism 21-GERD 22-Osteoporosis 23-DJD History of present Illness 79 y o w f , with a complicated medical history with multiple co-morbidities, recurrent falls & multiple Lt knee surgeries with hardware placement ,soft tissue injury & infection ,who was seen at local hospital for increasing Lt knee pain & swelling, intractable nausea , vomiting & hypotension , and was transferred to [facility] for high level of care & after blood Cx that revealed Gp B streptococcus Bacteremia. Pt had clindamycin 900 mg before her transfer. Pt had routine labs that revealed elevated ,procalcitonin , inflammatory markers, Leucocytosis. Exam shows Lt knee swelling. She started on IV antibiotics with vancomycin & Rocephin. Repeat Bl. Cx still pending. She was seen by ID ,Dr. Cornejo , & antibiotics were modified according to his recommendations. , from [facility] , was consulted & pt had Lt knee aspiration & recommended either Amputation or to transfer pt. to [facility] for Dr.O' Knapp to decide putting in consideration all the above listed co-morbidities. Postoperative Information Review of Systems Constitutional: No fever, No chills. Eye: No visual disturbances. Ear/Nose/Mouth/Throat: No nasal congestion, No sore throat. Respiratory: No shortness of breath, No cough. Cardiovascular: No chest pain, No tachycardia. Gastrointestinal: No nausea, No vomiting, No abdominal pain. Genitourinary: No change in urine stream. Hematology/Lymphatics: No bleeding tendency. Endocrine: No polyuria, No cold intolerance, No heat intolerance. Immunologic: Negative. Musculoskeletal: Lt knee swelling & pain. Integumentary: Negative. Neurologic: No confusion, No numbness, No tingling, No headache. Psychiatric: No anxiety, No depression. All other systems are negative Health Status Allergies: Allergies (10) Active Reaction amLODIPine None Documented valdecoxib None Documented Bextra Itching etodolac Itching Latex Itching Mobic Itching Naprosyn Itching penicillin Shortness of breath phentermine unknown reaction sulfa drugs Itching Current medications: Home Medications (18) Active aspirin 81 mg oral delayed release tablet 81 mg = 1 Tab, Oral, Daily Caltrate 600 + D 1 Tab, Oral, BID CoQ10 1 Tab, Oral, Daily Crestor 10 mg oral tablet 10 mg = 1 Tab, Oral, At Bedtime cyanocobalamin 5000 mcg oral tablet, extended release 5,000 mcg = 1 Tab, Oral, Daily Cymbalta 60 mg oral delayed release capsule 60 mg = 1 Cap, Oral, Daily diclofenac 75 mg, Oral, BID fluticasone 50 mcg/inh nasal spray 2 [place], PRN, Nostrils Both, BID Lasix 40 mg oral tablet 40 mg = 1 Tab, Oral, Daily levocetirizine 5 mg oral tablet 5 mg = 1 Tab, Oral, QPM lisinopril 10 mg oral tablet 10 mg = 1 Tab, Oral, Daily magnesium citrate 100 mg oral tablet 1 Tab, Oral, BID MiraLax oral powder for reconstitution 17 Gram, Oral, Daily Non Formulary Medication 2 Cap, Oral, Daily potassium chloride 20 mEq oral tablet, extended release 20 mEq = 1 Tab, Oral, BID Synthroid 100 mcg (0.1 mg) oral tablet 100 mcg = 1 Tab, Oral, Daily traMADol 50 mg oral tablet 100 mg = 2 Tab, PRN, Oral, Q12H Ventolin HFA 90 mcg/inh inhalation aerosol 1 Puff, PRN, Inhalation, QID , Medications (40) Active Scheduled: (13) calcium 500 mg/vit D 200 int unit tab 1 Tab, Oral, BID cefTRIAXone + NaCl 0.9% 50 mL 2 Gram, IV Piggyback, [id number] cyanocobalamin 1,000 mcg tab 5,000 mcg 5 Tab, Oral, Daily docusate sodium 100 mg cap 100 mg 1 Cap, Oral, BID DULoxetine DR 60 mg cap 60 mg 1 Cap, Oral, Daily influenza vaccine, quadrivalent 0.5 mL, IntraMuscular, [id number] levothyroxine 100 mcg tab 100 mcg 1 Tab, Oral, Daily lidocaine 1% *PF* inj 5 mL 10 mL, IntraArtiCULAR, 1-Time lisinopril 10 mg tab 10 mg 1 Tab, Oral, Daily loratadine 10 mg tab 10 mg 1 Tab, Oral, Daily polyethylene glycol 3350 pwd 17 g pkt 17 Gram 1 Packet, Oral, Daily rosuvastatin 10 mg tab 10 mg 1 Tab, Oral, At Bedtime ubiquinone 50 mg Cap 50 mg 1 Cap, Oral, Daily Continuous: (1) NaCl 0.45% 1,000 mL 1,000 mL, IntraVENous, 100 mL/Hr PRN: (26) acetaminophen 325 mg tab 650 mg 2 Tab, Oral, Q4H acetaminophen/HYDROcodone 325/5 mg tab 1 Tab, Oral, Q4H acetaminophen/HYDROcodone 325/5 mg tab 2 Tab, Oral, Q4H albuterol-ipratropium inh 3 [...] tab 25 mg 1 Tab, Oral, Q4H fluticasone 0.05% nasal spray 2 [place], Nostrils Both, BID gabapentin 300 mg cap 300 mg 1 Cap, Oral, At Bedtime HYDROmorphone 1 mg/1 mL inj 0.5 mg 0.5 mL, IV Push, Q2H magnesium hydroxide 8% liq 30 mL 30 mL, Oral, Daily magnesium sulfate 2 Gram 50 mL, IV Piggyback, Daily magnesium sulfate 2 Gram 50 mL, IV Piggyback, Q2H metoclopramide 10 mg/2 mL inj 5 mg 1 mL, IV Push, Q6H ondansetron 4 mg/2 mL inj 4 mg 2 mL, IV Push, Q4H potassium chloride 10 mEq 100 mL, IV Piggyback, Q1H potassium chloride CR 20 mEq tab 20 mEq 1 Tab, Oral, Q2H potassium chloride CR 20 mEq tab 60 mEq 3 Tab, Oral, Q2H scopolamine 1.5 mg/72 hr patch 1 Patch, TransDermal, Q3Days sodium phosphate 15 mMole 5 mL, IV Piggyback, Daily sodium phosphate 15 mMole 5 mL, IV Piggyback, Q6H traZODone 50 mg tab 50 mg [...] pain, bilateral Sleep apnea Histories Family History: cancer but no DM, HTN ,OR CAD Procedure history: x 2. left TSA. left shoulder ORIF. right RCR. left TKA. revision left TKA. left knee ORIF. lap band gastric bypass. Babak filter. Social History & has 2 sons. There is no h/o smoking or drinking alcohol. Physical Examination General: Alert and oriented, No [...] No lymphadenopathy neck, axilla, groin. Musculoskeletal: Normal range of motion, Normal strength, No tenderness, No swelling, No deformity, Normal gait. Integumentary: Warm, Meckling, Intact, No pallor, No rash, cellulitis Lt knee with swelling. Neurologic: Alert, Oriented, Normal sensory, Normal motor function, No focal deficits, Cranial Nerves II-XII are grossly intact, Normal deep tendon reflexes. Psychiatric: Cooperative, Appropriate mood & affect, Normal judgment, Non-suicidal. Review / Management Results review Impression and Plan Diagnosis Chronic venous insufficiency - Admitting, Medical. Osteoarthritis - Admitting, Medical. Sleep apnea - Admitting, Medical. Sepsis - Admitting, Medical. Left prothetic knee infection - Admitting, Medical. Hypercholesteremia - Admitting, Medical. Left knee pain - Admitting, Medical. Elevated procalcitonin - Admitting, Medical. Morbid obesity with BMI of 40.0-44.9, adult - Admitting, Medical. Hypothyroid - Admitting, Medical. Hypokalemia - Admitting, Medical. Hyponatremia - Admitting, Medical. GERD (gastroesophageal reflux disease) - Admitting, Medical. HTN (hypertension) - Admitting, Medical. Leucocytosis - Admitting, Medical. ESR raised - Admitting, Medical. CRP elevated - Admitting, Medical. Left knee cellulitis - Admitting, Medical. Murmur, cardiac - Admitting, Medical. Bacteremia due to group B Streptococcus agalactiae - Admitting, Medical. Acute kidney injury - Admitting, Medical. Course: Plan/ pain control ,DVT prophylaxis hydration , close monitoring fluid & electrolytes .IV antibiotics as per ID recommendations final treatment plan per ortth.. Electronically signed by Maureen Cornejo Conversion 4 Year Olds Preschool Teacher Cerner at 06/16/2022 8:05 PM CDT documented in this encounter Plan of Treatment Not on file documented as of this encounter Visit Diagnoses Not on filedocumented in this encounter
--- OUTSIDE RECORDS SUMMARY | 2024-08-09 13:25 | XMS_ITS | Encounter Summary ---
Author Organization [employer] Address [address] [place] [id number] Care Team Providers Care Duplicating Machine Operator Name Role Phone Unavailable Primary Care Provider Unavailabl e Encounter Details Date Type Department Care Team (Late st Contact Info) Description 06/28/2019 Transcribed Document [facility] [place] Family Medicine [facility] [place] [address] ProviderMariela MD [facility] [address] Social History Tobacco Use Types [...] Cerner Conversion Note - Mariela ProviderMD - 06/28/2019 11:20 AM CDT Patient: SOFIA GILL Age: 79 [...] alert comfortable, asympt. , pain under control, ???Started on PT/OT and getting up and sitting on the chair ???Has a pi er wick catheter ???Has no trouble swallowing now Review of Systems Constitutional: No fever, No [...] reaction sulfa drugs Itching Current medications: Medications (43) Active Scheduled: (18) calcium 500 mg/vit D 200 int unit tab 1 Tab, Oral, BID cefTRIAXone + NaCl 0.9% 50 mL 2 Gram, IV Piggyback, [id number] cyanocobalamin 1,000 mcg tab 5,000 mcg 5 Tab, Oral, Daily DULoxetine DR 60 mg cap 60 mg 1 Cap, Oral, Daily enoxaparin 40 mg/0.4 mL inj 40 mg 0.4 mL, SubCutaneous, Daily gabapentin 300 mg cap 300 mg [...] fluticasone 0.05% nasal spray 100 mcg 2 [place], Nostrils Both, BID magnesium hydroxide 8% liq [...] Sleep apnea Physical Examination VS/Measurements Vital Measurements 06/28/2019 8:00 EDT Systolic Blood Pressure 115 mmHg Diastolic Blood Pressure 51 mmHg LOW Mean Arterial Pressure (MAP)-BMDI 63 Temperature Source Oral Temperature Mode Fahrenheit Temperature, Fahrenheit 97.5 Deg F Clinical Temperature, C 36.4 Deg C Heart Rate Monitored 78 bpm Respiratory Rate 18 Breaths/Min Oxygen Saturation 93 % LOW Oxygen Therapy Mode Nasal cannula Oxygen Flow [...] Review / Management Results review: All Results 06/28/2019 2:58 EDT Sodium Level 136 mmol/L Potassium Level 4.4 mmol/L Chloride Level 103 mmol/L Carbon Dioxide Level 28 mmol/L Anion Gap 9 Glucose Level 127 mg/dL HI Blood Urea Nitrogen 11 mg/dL Creatinine Level 0.60 mg/dL eGFR >60 mL/min/1.73m2 eGFR NonAfrican >60 mL/min/1.73m2 Bun/Creatinine 18.3 Calcium Level 8.1 mg/dL LOW 06/27/2019 4:42 EDT Sodium Level 136 mmol/L Potassium Level 4.6 mmol/L Chloride Level 104 mmol/L Carbon Dioxide Level 28 mmol/L Anion Gap 9 Glucose Level 93 mg/dL Blood Urea Nitrogen 9 mg/dL Creatinine Level 0.60 mg/dL eGFR >60 mL/min/1.73m2 eGFR NonAfrican [...] % 20.8 % Lymph # 2.21 x10(3)/uL Hardeman % 9.4 % HI Hardeman # 1.00 K/uL Eos % 2.6 % Eos # 0.28 x10(3)/uL Baso % 0.3 % Baso # 0.03 x10(3)/uL Slide Review No IG# 0.20 x10(3)/uL HI IG% 1.90 % HI . Condition: Stable. Impression and Plan Diagnosis [...] blood glucose, and urine output. Continue on current IV antibiotics as recommended by infectious disease. Pain control. DVT prophylaxis. Stress ulcer prophylaxis. We'll follow Dr. Saenz recommendations. Discussed with her nurse.. documented in this encounter Plan of Treatment Not on file documented as of this encounter Visit Diagnoses Not on filedocumented in this encounter
--- OUTSIDE RECORDS SUMMARY | 2024-08-09 13:25 | XMS_ITS | Encounter Summary ---
Author Organization [employer] Address [address] [place] [id number] Care Team Providers Care Senior Data Scientist Name Role Phone Unavailable Primary Care Provider Unavailabl e Encounter Details Date Type Department Care Team (Late st Contact Info) Description 06/17/2019 Transcribed Document [facility] [place] [address] [place] [address] ProviderMariela MD [address] [place] [address] Social History Tobacco Use Types [...] Conversion Note - Historical ProviderMD - 06/17/2019 10:02 AM CDT UM Authorization Entered On: 06/17/2019 10:05 EDT Performed On: 06/17/2019 10:02 EDT by Michelle Jimenez Rn-Utilization Review Primary Insurance Authorization Authorization and Policy Numbers : Insurance 1 Health Plan: [facility] [employer] Policy Number: [id number] Authorization Number: Insurance Primary Name : [facility] [employer] Policy Number: [id number] Authorization Status-Primary : Pending clinicals Authorized Service Begin Date-Primary : 06/16/2019 EDT Authorization Comments-Primary : Attempted auth on [facility] portal, message that notification cannot be completed online, Call number on back of card Historical Authorization Comments-Primary : No Authorization Comments Found Michelle Jimenez Rn-Utilization Review - 06/17/2019 10:02 EDT documented in this encounter Plan of Treatment Not on file documented as of this encounter Visit Diagnoses Not on filedocumented in this encounter
--- OUTSIDE RECORDS SUMMARY | 2024-08-09 13:25 | XMS_ITS | Encounter Summary ---
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 Role Phone Unavailable Primary Care Provider Unavailabl e Encounter Details Date Type Department Care Team (Late st Contact Info) Description 06/16/2019 Transcribed Document [facility] [place] [facility] [place] [address] ProviderMariela MD [facility] [place] [address] Social History Tobacco Use Types [...] Cerner Conversion Note - Historical Provider, - 06/16/2019 9:07 PM CDT Admission History, Adult Entered On: 06/16/2019 22:41 EDT Performed On: 06/16/2019 21:12 EDT by Svitlana Ugarte RN Advance Directive Patient has Advance Directive *Q : No, patient refuses Advance Directive information Svitlana Ugarte RN - 06/17/2019 0:08 EDT Anesthesia/Transfusion History Family History of Anesthesia Reaction : Prior transfusion without reaction Blood Transfusion Acceptable to Patient : Yes Transfusion History : Prior anesthesia without reaction Family History of Anesthesia Reaction : None Svitlana Ugarte RN - 06/17/2019 0:08 EDT Anticipated Discharge Needs Discharge To, Anticipated : Home Anticipated Discharge Needs at This Time : Transportation Svitlana Ugarte RN - 06/17/2019 0:08 EDT Education Topics, Admission Orientation DCP GENERIC CODE Advance Directives : Verbalizes understanding Allergy Band Applied : Verbalizes understanding Assessment/Vital Signs : Verbalizes understanding Bed Control : Verbalizes understanding Call Light : Verbalizes understanding Confidentiality : Verbalizes understanding Diet/Room Service : Verbalizes understanding Fall Prevention : Verbalizes understanding Hand Hygiene : Verbalizes understanding Healthcare Provider Visit : Verbalizes understanding ID Band Applied : Verbalizes understanding Isolation Precautions : Verbalizes understanding Orientation to Room/Bathroom : Verbalizes understanding Patient Bill of Rights : Verbalizes understanding Patient Rights/Responsibilities : Verbalizes understanding Patient Safety : Verbalizes understanding Personal Privacy Code : Verbalizes understanding Rapid Response Initiated by Patient/Family : Verbalizes understanding Rounding : Verbalizes understanding Siderails use/risks : Verbalizes understanding Skin Precautions : Verbalizes understanding Smoking Policy : Verbalizes understanding Telemetry Monitoring : Verbalizes understanding Television/Phone : Verbalizes understanding Visiting Policy : Verbalizes understanding Svitlana Ugarte RN - 06/17/2019 0:08 EDT Functional Assessment Living Situation : Home Patient Lives With : Alone Persons Assisting Patient at Home : Alone Current Daily Living Assistance : Transportation Mobility Assistance Prior to Admission : Independent FAY Hx Falls Immediate/Within 3 Months : No Current Home Treatments : CPAP Home Equipment : CPAP unit, Walker Svitlana Ugarte RN - 06/17/2019 0:08 EDT General Info Patient Arrival Date/Time : 06/16/2019 21:12 EDT Svitlana Ugarte RN - 06/17/2019 0:07 EDT Preferred Name : Sy Arrived From : Emergency department Mode of Arrival on Unit : Bed Legal Guardian : No Support Person/Patient Mamma Logist : Yes Support Person/Pt Rep Name : Sam Barlow Contact Password : Alysony Support Person/Pt Rep Contact Information : son (Sam) [phone] (Nancy Rust [phone] Want Family/Rep/Phys Notified of Admit : No Emergency Contact #1 : Sam Barlow Emergency Contact #1 Emergency Contact #1 Relationship : Son Emergency Contact #2 : Sy Barlow Emergency Contact #2 Emergency Contact #2 Relationship : Son Chief Complaint : Patient had vomiting a couple days ago, began feeling worse and both knees were hurting, eventually causing too much pain and weakness to walk. Information Obtained From : Patient Primary Language : Czech Preferred Communication Mode : Verbal Communication Barrier : None Svitlana Ugarte RN - 06/17/2019 0:08 EDT Fall Risk Scales ABCs Fall Injury Risk Identification : Bones ABC Fall Injury Risk : Moderate to high injury risk Injury Moderate to High Risk Interventions : Bed alarm on, High Risk for Fall Injury sign in place per policy, Specialty low bed, Supervise toileting as indicated, Transport methods appropriate to patient, Wrist band (fall risk) on per policy FAY Hx Falls Immediate/Within 3 Months : No Fay Secondary Diagnosis : Yes FAY Use of Ambulatory Aid : Crutches/Cane/Walker FAY IV Therapy or IV Access : Yes Fay Gait/Transferring : Weak Fay Mental Status : Oriented to own ability Fay Fall Risk Score : 60 FAY Fall Scale Risk Level : 46 or > High Risk [place] Fall Interventions : Adequate lighting, Assistive devices within reach, Bed in low position, Call device within reach, Hourly comfort/safety rounds, Non-slip footwear, Personal items within reach, Reinforced to call for assistance before getting out of bed, Room free of clutter/spills, Wheels locked, Wires/Cords secured Fall Moderate to High Risk Interventions : Bed alarm on, High Risk for Fall sign in place per policy, Supervise toileting as indicated, Transport methods appropriate to patient, Wrist band (fall risk) on Svitlana Ugarte RN - 06/17/2019 0:08 EDT Fall Risk Education Grid Alarms : Verbalizes understanding Assistive Equipment Use : Verbalizes understanding Bed Height/Stabilization : Verbalizes understanding Call light use : Verbalizes understanding Door Open : Verbalizes understanding Environmental Management : Verbalizes understanding Eyeglasses Use : Verbalizes understanding Fall Contract/Letter : Verbalizes understanding Fall Prevention in the Home : Verbalizes understanding Fall Prevention Protocol : Verbalizes understanding Hearing Aid Use : Verbalizes understanding Home Risk Assessment : Verbalizes understanding Night Light Use : Verbalizes understanding Nonskid Footwear Use : Verbalizes understanding Notification of Staff When Leaving : Verbalizes understanding Orthostatic Hypotension Precautions : Verbalizes understanding Personal Article Availability : Verbalizes understanding Prevention Responsibility Family : Verbalizes understanding Prevention Responsibility Patient : Verbalizes understanding Risk Alert Methods : Verbalizes understanding Risk Factors : Verbalizes understanding Safety Aids : Verbalizes understanding Siderails use/risks : Verbalizes understanding Special Assistive Devices : Verbalizes understanding Staff Responsiveness : Verbalizes understanding Symptom Identification & Action Plan *Q : Verbalizes understanding Symptom Reporting : Verbalizes understanding Toileting Schedule : Verbalizes understanding Transfer/Mobility Techniques : Verbalizes understanding Urinal/Bedpan Availability : Verbalizes understanding Wait for Assistance : Verbalizes understanding Wheelchair Safety : Verbalizes understanding Svitlana Ugarte RN - 06/17/2019 0:08 EDT Barriers to Learning : None evident Individuals Taught : Patient Readiness to Learn : Cooperative Highest Level of Education : Post graduate degree(s) Baseline Knowledge of Topic : Limited Teaching Method : Teach back method Learning Style Preferences Patient : Verbal explanation Teaching Evaluation : Verbalizes understanding Fall Risk Scale Calc Temp : 1 Svitlana Ugarte RN - 06/17/2019 0:08 EDT Health Histories Smoking Status : Never (less than 100 in lifetime; none in last 30 days) Smokeless Tobacco Status : Never Svitlana Ugarte RN - 06/17/2019 0:08 EDT Social History (As Of: 06/16/2019 22:41:45 EDT) Tobacco: Smoking Status Never smoker. Used Tobacco, but Quit No. (Last Updated: 10/16/2016 11:53:46 EDT by RUI EMMANUEL, EDDIE) Alcohol: Alcohol Use History No. (Last Updated: 10/16/2016 11:53:51 EDT by RUI EMMANUEL, RN) Substance Abuse: Drug Use Hx: No. Use in Last 12 Months: No. (Last Updated: 10/16/2016 11:53:56 EDT by RUI EMMANUEL, RN) Nutrition/Health: Regular, Caffeine intake amount: occassional. (Last Updated: 10/16/2016 11:54:06 EDT by RUI EMMANUEL, RN) Home/Environment: Lives with Alone. Living situation: Home/Independent. Home equipment: Walker/Cane, Wheelchair, shower chair, elevated commode, rolling walker. Alcohol abuse in household: No. Substance abuse in household: No. Smoker in household: No. Injuries/Abuse/Neglect in household: No. Feels unsafe at home: No. Family/Friends available for support: Yes. 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 (Last Updated: 10/16/2016 11:55:14 EDT by RUI EMMANUEL, RN) Height and Weight, Clinical Dosing Height Source : Stated Height Entry Format : [place] Height, Feet : 4 ft(Converted to: 122 cm, 48 Inch) Height, Inches : 11 Inch(Converted to: 0 ft 11 Inch, 27.94 cm) Clinical Height : 149.86 cm Weight Source : Bed scale Weight Entry Format : [place] Clinical Dosing Weight : 91.82 kg Weight, Pounds : 202 lb Body Surface Area (BSA) : 1.85 m2 Body Mass Index : 40.9 kg/m2 (>HHI) [place] Body Weight : 43 kg Svitlana Ugarte RN - 06/17/2019 0:08 EDT Infectious Disease History COVID19 Screening : No Experiencing Infectious Disease Symptoms : No symptoms Physical contact outside [place] in the last 30 days : No Infectious Disease History : Chicken pox/Shingles, Measles Isolation Needed : Contact Active Surveillance Screen Assessment : Patient transferred from another hospital/ED Active Surveillance Screen Positive : Yes Tuberculosis Symptoms : None Svitlana Ugarte RN - 06/17/2019 0:08 EDT Tetanus Immunization Status Previous Tetanus Immunizations : No qualifying data available. Tetanus Immunization : Unknown Svitlana Ugarte RN - 06/17/2019 0:08 EDT Influenza Vaccine Asmt, Adult Previous Vaccines from Immunization Schedule : No qualifying data available. Influenza Immunization, Current Season : No Inactivated Flu Vaccine Contraindications : No contraindications to inactivated influenza vaccine Transplant Workup/Recent Transplant : No Order for Influenza Vaccine : Order for influenza vaccine sent to pharmacy Svitlana Ugarte RN - 06/17/2019 0:08 EDT Pneumococcal Vaccine Previous Vaccines from Immunization Schedule : No qualifying data available. Pneumonia Immunization Received : Yes Svitlana Ugarte RN - 06/17/2019 0:08 EDT Order Details Transport Mode Order Detail : Bed (including specialty) Isolation Precautions Order Detail : Contact precautions Order Detail : N/A IV Order Detail : 1 Oxygen Order Detail : 0 Nurse Collect Order Detail : 0 Lift/Transfer : Moderate assist Central Line Order Detail : No Room Service : Appropriate Arterial Line : No Svitlana Ugarte RN - 06/17/2019 0:08 EDT Nutrition History Feeding Ability : Independent Adaptive Feeding Equipment : None Adaptive Feeding Equipment : Regular Eating Poorly Due to Decreased Appetite : Yes Unplanned Weight Loss in Past 3-6 Months : No Malnutrition Screening Tool Total(mal) : 1 Malnutrition Screening Tool Risk Level : Patient not at risk Svitlana Ugarte RN - 06/17/2019 0:08 EDT [place] Suicide Severity Rating Scale (C-SSRS) CSSRS Past Month Wish to be : No CSSRS Past Month Suicidal Thoughts : No CSSRS Lifetime Suicide Behavior : No Suicide Severity Rating Score : 0 Suicide Severity Rating : No Additional Care Required at this time Svitlana Ugarte RN - 06/17/2019 0:08 EDT Psychosocial History Do You Have a History of the Following? : Patient denies history Currently in Unsafe Situation : No Svitlana Ugarte RN - 06/17/2019 0:08 EDT Sleep Apnea Risk Assmt BiPAP/CPAP Ordered for Home Use : Yes Hx of Obstructive Sleep Apnea Diagnosis : Yes BiPAP/CPAP Used at Home : Yes Age over 50 Years Old : Yes Gender Male : No Svitlana Ugarte RN - 06/17/2019 0:08 EDT Spiritual/Cultural Needs Holiness Preference : Latter-Day Svitlana Ugarte RN - 06/17/2019 0:08 EDT Valuables and Belongings Valuables and Belongings : Clothing, Personal devices, Personal items, No comfort items, No jewelry, No assistive devices, No respiratory devices, No medications Clothing : Common streetwear Clothing Disposition : Bedside, With patient, Declines to send to security/safe Personal Device Disposition : Bedside, With patient, Declines to send to security/safe Personal Devices : Glasses Personal Items : Cell phone, Other: keys Personal Items Disposition : Bedside, With patient, Declines to send to security/safe Svitlana Ugarte RN - 06/17/2019 0:08 EDT documented in this encounter Plan of Treatment Not on file documented as of this encounter Visit Diagnoses Not on filedocumented in this encounter
--- OUTSIDE RECORDS SUMMARY | 2024-08-09 13:25 | XMS_ITS | Encounter Summary ---
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 [place] Family Medicine [facility] [place] [address] [facility] [place] [address] Social History Tobacco Use Types [...] Conversion Note - Historical ProviderMD - 07/13/2019 8:58 AM CDT Patient: SOFIA GILL Age: 79 years Sex: Female : 1940 Associated Diagnoses: None Author: CHRISSY HENDERSON, PharmD, BCPS HPI: 06/15 Pt admitted to [facility] [place] with infected L-TKA with [...] 07:00) 68 (JULY 12 07:00) 91 (JULY 11 19:00) Resp Rate 18 (JULY 12 07:00) 15 (JULY 11 23:00) 18 (JULY 12 07:00) SBP H 148 (JULY 12 07:00) 108 (JULY 11 19:00) H 148 (JULY 12 07:00) DBP L 58 (JULY 12 07:00) L 42 (JULY 11 19:00) L 58 (JULY 12 07:00) MAP 61 (JULY 11 15:45) 61 (JULY 11 15:45) 61 (JULY 11 15:45) SpO2 99 (JULY 12 07:00) 96 (JULY 11 15:45) 100 (JULY 11:00) Labs (Last four charted values) WBC 7.1 [...] 05) Creatinine Clearance (Current Encounter/Past 24 Hours) Creatinine Level 0.70 mg/dL 07/13/2019 06:47 Bun/Creatinine 54.3 HI 07/13/2019 06:47 Culture Results: 06/16 & 06/20 knee tissue strep agal Group B Date 06/27 06/28 06/29 07/01 07/03 07/06 INR 1.1 --- 1.1 1.1 1.1 1.1 Dose 4mg 2mg 2mg 2 2 2 Date 07/09 07/12 INR 1.1 1.1 Dose 2mg 2mg A/P: 1. Patient's orthopedic surgeon wants to use warfarin 2mg daily for DVT prophylaxis instead of lovenox. Continue Warfarin 2mg daily as INR is stable goal <2. 2. INR is not rising on warfarin 2mg (as is the goal per ortho group). INR check to [facility]. Rx to follow up on Wednesday Chrissy Henderson, PharmD [phone] documented in this encounter Plan of Treatment Not on file documented as of this encounter Visit Diagnoses Not on filedocumented in this encounter
--- OUTSIDE RECORDS SUMMARY | 2024-08-09 13:25 | XMS_ITS | Encounter Summary ---
Author Organization [employer] Address [address] [place] [address] Care Team Providers Care Chief Of Production Name Role Phone Unavailable Primary Care Provider Unavailabl e Encounter Details Date Type Department Care Team (Late st Contact Info) Description 06/16/2019 Transcribed Document [facility] [place] [facility] [place] [address] ProviderMariela MD [address] [place] [address] Social History Tobacco Use Types Packs/Day Years [...] Historical ProviderMD - 06/16/2019 9:25 PM CDT Education-(VTE) / (DVT) Entered On: 06/17/2019 2:08 EDT Performed On: 06/16/2019 21:25 EDT by Svitlana Ugarte RN Teaching/Learning Assessment Barriers To Learning : None evident Individuals Taught : Patient Readiness to Learn : Cooperative Highest Level of Education : Post graduate degree(s) Baseline Knowledge of Topic : Limited Readiness to Learn : Explanation Learning Style Preferences Patient : Verbal explanation Svitlana Ugarte RN - 06/17/2019 2:08 EDT documented in this encounter Plan of Treatment Not on file documented as of this encounter Visit Diagnoses Not on filedocumented in this encounter
--- OUTSIDE RECORDS SUMMARY | 2024-08-09 13:25 | XMS_ITS | Encounter Summary ---
Author Organization [employer] Address [address] [place] [address] Care Team Providers Care Grinder Watch Parts Name Role Phone Unavailable Primary Care Provider Unavailabl e Encounter Details Date Type Department Care Team (Late st Contact Info) Description 08/22/2018 Transcribed Document [facility] [place] [address] [place] [address] ProviderMariela MD [address] [place] [id number] Social History Tobacco Use Types Packs/Day Years [...] Conversion Note - Historical ProviderMD - 08/22/2018 5:00 PM CDT Chart Check - Review Order Profile Entered On: 08/22/2018 19:55 EDT Performed On: 08/22/2018 17:00 EDT by Vianca Morgan, RN Chart Check Powerplans Initiated/Discontinued as Appropriate : Yes All Active Orders Reviewed : Yes Vianca Morgan, RN - 08/22/2018 19:55 EDT documented in this encounter Plan of Treatment Not on file documented as of this encounter Visit Diagnoses Not on filedocumented in this encounter
--- OUTSIDE RECORDS SUMMARY | 2024-08-09 13:25 | XMS_ITS | Encounter Summary ---
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 Name Role Phone Unavailable Primary Care Provider Unavailabl e Encounter Details Date Type Department Care Team (Late st Contact Info) Description 08/11/2018 Transcribed Document [facility] [place] Medicine [facility] [place] [address] ProviderMariela MD [facility] [address] Social History Tobacco Use Types [...] Cerner Conversion Note - Historical ProviderMD - 08/11/2018 2:55 PM CDT Patient: SOFIA GILL Age: 78 Years Sex: Female : 1940 Chief Complaint Right Knee Pain Primary Care Provider NILA CHO, [facility] History of Present Illness This patient is a pleasant 78 yo WF who presents with right knee pain. The pain has been going on for 10 but has gotten progressively worse. She describes it as a sharp pain. It is now to the point that it is affecting her ADLs. She has tried NSAIDs and narcotics without relief of her pain. She has fallen. She has used a walker as an assistive device. He saw Dr Saenz who evaluated her and determined that she has severe DJD affecting right knee. Pt was offered a Right Total Knee Arthroplasty and agreed to the procedure. Pt denies [...] Integumentary: Neg for rash. Vital Signs T: 36.7 ??C HR: 87(Peripheral) RR: 18 BP: 128/58 SpO2: 97% HT: 151.13 cm WT: 97.73 kg BMI: 42.8 Oxygen Settings (Last) Oxygen Therapy Mode: Room air (08/11/18 14:36:00 EDT) Physical Exam Constitutional: This is a pleasant 78 yo WF, BMI 42.8, in no acute distress. HEENT: Normocephalic, atraumatic. PEERLA. Extraocular muscles intact. Conjunctiva pink without exudate. Oropharynx pink and moist. Neck supple. No JVD. Cardiac: SI, S2. RRR. No M/R/G. Respiratory: Lungs CTA bilaterally. No wheezes, rales, or rhonchi. Abdomen: Soft, nontender, nondistended. Active bowel sounds. No visible masses. Musculoskeletal: Right Knee ROM 5-88. Integumentary: Skin is pink, warm and dry. No rashes. Neurologic: CN II-XII grossly intact. Psychiatric: Judgment and affect appropriate Assessment/Plan 1. Preoperative Exam- Pt underwent preoperative laboratory workup and diagnostic studies. This included a medical evaluation from her PCP who provided her with clearance to proceed with surgery. 2. Right Knee Pain secondary to DJD- Proceed with surgery as scheduled with Dr Saenz on 08/22/2018. 3. Hyperlipidemia- Continue Crestor. 4. Hypertension- Continue Lisinopril and Lasix. 5. Hypothyroidism- Continue Synthroid. 6. SHERRY- Continue CPAP. 7. Asthma- Nebs/Inhalers prn. 8. Seasonal Allergies- Continue Levocetirizine. 9. Depression- Continue Cymbalta. BASED ON THE PATIENT'S ADVANCED AGE WITH SHERRY, I FEEL THAT THIS PATIENT SHOULD REQUIRE INPATIENT HOSPITALIZATION UNLESS DEEMED OTHERWISE APPROPRIATE BY THE ORTHOPEDIC SURGEON GIVEN THE COMPLEXITY OF THE OPERATION. SHE HAS A VERY UNSTABLE LEFT KNEE AND IS A FALL RISK. SHE ALSO HAS STAIRS IN HER HOME AND NO ONE IS AVAILABLE TO HELP TAKE CARE OF HER AT HOME. SHE WOULD BENEFIT FROM SNF PLACEMENT ONCE DISCHARGED. Problem List/Past Medical History Ongoing Cataract Chronic venous insufficiency Edema - BLE History of obstructive sleep apnea HTN (hypertension) Hx: GERD (gastroesophageal reflux disease) Hypercholesteremia Hypothyroid Kidney cysts right Knee pain, bilateral Lung abnormality right Murmur, cardiac Osteoarthritis Osteoporosis Pain management Redness bilateral lower legs Seasonal allergies Shoulder pain, bilateral Sleep apnea Procedure/Surgical History TRANSFUSE NONAUT RED BLOOD CELLS IN PERIPH [...] FEMORAL W SYNTH SUB, CEMENT, OPEN (10/26/2016), Babak filter, lap band gastric bypass, left knee ORIF, left shoulder ORIF, left TKA, left TSA, revision left TKA, right RCR, x 2. Home Medications (18) Active aspirin 81 mg oral tablet 81 [...] BID fluticasone 50 mcg/inh nasal spray 2 [place], PRN, Nostrils Both, BID Lasix 40 mg [...] Non Formulary Medication 1 Cap, Oral, Daily potassium chloride 20 mEq oral tablet, extended release 20 mEq = 1 Tab, Oral, BID Synthroid 100 mcg (0.1 mg) oral tablet 100 mcg = 1 Tab, Oral, Daily traMADol 50 mg oral tablet 50 mg = 1 Tab, Oral, BID Ventolin HFA 90 mcg/inh inhalation aerosol 1 Puff, PRN, Inhalation, QID Allergies Bextra (Itching) Latex (Itching) Mobic (Itching) Naprosyn (Itching) etodolac (Itching) penicillin (Shortness of breath) phentermine (unknown reaction) sulfa drugs (Itching) Social History Alcohol Alcohol Use History No. Employment/School Retired, Previous [...] occassional. Substance Abuse Drug Use Hx: No. Use in Last 12 Months: No. Tobacco Smoking Status Never smoker. Used Tobacco, but Quit No. Diagnostic Results EKG- NSR, 72 CXR- NAD Lab Results WBC- 8.1 Hbg- 11.2 Hct- 35.4 Plt- 339 Glucose- 87 Na- 139 K- 4.5 BUN- 29 Cr- 0.89 GFR- 62 A1C- 5.4 PT- 10.6 INR- 1.0 PTT- 25.9 UA is neg for nitrites and LE documented in this encounter Plan of Treatment Not on file documented as of this encounter Visit Diagnoses Not on filedocumented in this encounter
--- OUTSIDE RECORDS SUMMARY | 2024-08-09 13:25 | XMS_ITS | Patient Health Record ---
Author Organization [facility] Address [address] [place] [id number] Care Team Providers Care Checking Clerk Name Role Phone Migration, Provider Unavailable Unavailable Reason For Referral No Information Medications Medication SIG (Take, Route, Frequency, Duration) Notes Start Date End Date Status Ventolin HFA 108 (90 Base) MCG/ACT 2 puff(s) inhaled 4 times a day for 30 day(s) Active Gabapentin 300 MG 1 cap(s) orally 3 times a day for 30 day(s) Active Fluticasone Propionate 50 MCG/ACT 1 spray(s) intranasally once a day for 30 day(s) Active traMADol HCl 50 MG 1 tab(s) orally every 4 hours prn Active Diclofenac Sodium 75 MG 1 tab(s) orally 2 times a day for 30 day(s) Active Levothyroxine Sodium 100 MCG 1 tab(s) orally once a day for 30 day(s) Active Colace 100 MG 1 cap(s) orally 2 times a day Active Lisinopril 10 MG 1 tab(s) orally once a day for 30 day(s) Active Caltrate 600+D Plus Minerals 600-800 MG-UNIT 1 tab(s) orally 2 times a day for 30 day(s) Active Levocetirizine Dihydrochloride 5 MG 1 tab(s) orally once a day (in the evening) for 30 day(s) Active Aspirin 81 MG 1 tab(s) orally once a day for 30 day(s) Active Lasix 40 MG 1 tab(s) orally once a day for 30 day(s) Active Keflex 500 MG 1 CAP(S) ORALLY EVERY 12 HOURS for 10 DAY(S) *Please review and pick correct strength-formulat ion from Medispan options. If intended option is not shown, discontinue and re-order from Quick Search* Active Cymbalta 60 MG 1 cap(s) orally once a day for 30 day(s) Active Potassium Chloride 20MEQ 1XDAY PO *Please review and pick correct strength-formulat ion from Geotender options. If intended option is not shown, discontinue and re-order from Quick Search* Active Cyanocobalamin 5000 MCG 1 TAB(S) ORALLY ONCE A DAY *Please review and pick correct strength-formulat ion from Geotender options. If intended option is not shown, discontinue and re-order from Quick Search* Active oxyCODONE HCl 5 MG 1 tab(s) orally every 6 hours prn Active Crestor 10 MG 1 tab(s) orally once a day for 30 day(s) Active MiraLax - DIRECTED ORALLY ONCE A DAY for 7 DAY(S) *Please review and pick correct strength-formulat ion from Geotender options. If intended option is not shown, discontinue and re-order from Quick Search* Active COQ10 (OBSOLETE) 300 MG 1 CAP(S) ORALLY ONCE A DAY *Please review for potential replacement for e-prescription and drug interaction check* Active Magnesium Citrate 125 MG 2 cap(s) orally once a day Active Problems Problem Type SNOMED Code ICD Code Onset Dates Problem Status W/U Status Risk Notes Problem Essential (primary) hypertension (I10) Active confirmed Problem Peripheral venous insufficiency (27475964) Venous insufficiency (chronic) (peripheral) (I87.2) Active confirmed Problem Post-traumatic gonarthrosis, bilateral (605138674) 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) Active confirmed Problem Gastro-esophageal reflux disease without esophagitis (887459840) Gastro-esophageal reflux disease without esophagitis (K21.9) Active confirmed Encounters Encounter Location Date Provider Diagnosis [address] [id number] 08/05/2024 Provider Migration Plan Of Treatment No Information Insurance Providers Payer Name Payer Address Payer Phone Subscriber Number Group Number Insured Name Patient Relationship to Insured Coverage Start Date Coverage End Date [employer] [address] [address] [place] [address] [phone] [id number] Yen Sy Self - patient is the insured Medical (General) History Surgical History Surgery Date(Month/Year) 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
--- OUTSIDE RECORDS SUMMARY | 2024-08-09 13:25 | XMS_ITS | Encounter Summary ---
Author Organization [employer] Address [address] [place] [address] Care Team Providers Care Wardrobe Image Consultant Name Role Phone Unavailable Primary Care Provider Unavailabl e Encounter Details Date Type Department Care Team (Late st Contact Info) Description 07/13/2019 Transcribed Document [facility] [place] Family Medicine [address] [place] [address] ProviderMariela MD [address] [place], [place] [phone] Social History Tobacco Use Types Packs/Day Years [...] Conversion Note - Historical ProviderMD - 07/13/2019 2:00 AM CDT Welder Repair Details Entered On: 07/13/2019 0:59 EDT Performed On: 07/13/2019 2:00 EDT by Bibi Gallagher, EDDIE Order Details Transport Mode Order Detail : Stretcher/Gurney Isolation Precautions Order Detail : Standard Precautions Order Detail : N/A IV Order Detail : 0 Oxygen Order Detail : 0 Nurse Collect Order Detail : 1 Lift/Transfer : Moderate assist Central Line Order Detail : Yes Room Service : Appropriate Arterial Line : No Bibi Gallagher, EDDIE - 07/13/2019 0:59 EDT documented in this encounter Plan of Treatment Not on file documented as of this encounter Visit Diagnoses Not on filedocumented in this encounter
--- OUTSIDE RECORDS SUMMARY | 2024-08-09 13:25 | XMS_ITS | Encounter Summary ---
Author Organization [id number] Address [address] [place] [address] Care Team Providers Care Dispatcher Relay Name Role Phone Unavailable Primary Care Provider Unavailabl e Encounter Details Date Type Department Care Team (Late st Contact Info) Description 08/22/2018 Transcribed Document [facility] [place] [facility] [place] [address] ProviderMariela MD [facility] [place] [address] Social History Tobacco Use Types [...] Cerner Conversion Note - Mariela ProviderMD - 08/22/2018 1:48 PM CDT Treatment Intervention, PT Entered On: 08/25/2018 15:52 EDT Performed On: 08/25/2018 14:50 EDT by RAFAT LEIGH PTA General Information, PT Visit Type, PT : Treatment Note Patient Orders : Order Date Order Ordering 08/22/2018 12:14 PT Evaluation and Treatment Ordered By: NIMO EPPS MD-ORT 08/22/2018 12:14 PT Treatment Instructions Ordered By: NIMO EPPS MD-ORT 08/22/2018 12:14 PT Treatment Instructions Ordered By: NIMO EPPS MD-ORT 08/22/2018 12:14 PT Treatment Instructions Ordered By: NIMO EPPS MD-ORT 08/22/2018 12:14 PT Treatment Instructions Ordered By: NIMO EPPS MD-ORT 08/22/2018 13:48 PT Additional Treatment Ordered By: DELMY ALLEN Physical Therapist Active Diagnoses : 08/23/2018 10:34 Presence of right artificial knee joint Therapy Diagnosis, PT : Aftercare following a Right TKA Admission Date : 08/22/2018 07:12 Personal Devices : Personal Devices No Devices Recorded Assistive Devices : Assistive Devices Wheelchair Precautions in Place : Fall prevention measures, high risk RAFAT LEIGH PTA - 08/25/2018 15:45 EDT General Status Patient Received Status : Supine in bed, Bed alarm activated, Other: SCDs, right LE elevated on foam wedge, needs in reach. Treatment Start Time : 08/25/2018 14:36 EDT Patient Left Status : Supine in bed, Bed alarm activated, RN/PCT informed, All needs met and within reach, Other: SCDs, right LE elevated on foam wedge RN/PCT Informed Comment : RN agreed to physical therapy Treatment End Time : 08/25/2018 14:50 EDT Treatment Time : 14 Minute(s) RAFAT LEIGH PTA 08/25/2018 15:45 EDT Edu Topics Physical Therapy Education Grid Home Program/Exercises : Verbalizes understanding, Returns demonstration RAFAT LEIGH PTA - 08/25/2018 15:45 EDT Plan of Care, PT PT Tx Plan/Goals Established w Patient : Yes RAFAT LEIGH PTA - 08/25/2018 15:45 EDT Halfway Goals Other PT LTG Grid Goal #1 Goal #2 Goal #3 Other : Patient will ambulate at least 50 feet with RWx and no more than Alexandra without LOB or safety concerns to allow safe household or facility ambulation upon actu care DC. Patient will participate with therex [...] DC to facility. Date to Meet : 08/29/2018 EDT 08/29/2018 EDT 08/29/2018 EDT Goal Status : Goal met Progressing, continue Initial goal Date Met : 08/24/2018 EDT Comment : Bleeding during first rep of knee flexion. RAFAT LEIGH PTA - 08/25/2018 15:45 EDT RAFAT LEIGH, TRUCK TRAILER FINAL INSPECTOR - 08/25/2018 15:45 EDT RAFAT LEIGH, TRUCK TRAILER FINAL INSPECTOR - 08/25/2018 15:45 EDT Treatment Note Subjective Comment : Patient agreed to physical therapy. Patient's Response to Treatment : No adverse reaction to therapy in PM session. Additional Objective Information : New HEP containing right knee extension isometric exercises x 25 reps TID was given/reviewed/ adn performed correctly. Foam wedge was repositioned so the right heel is floating off end of wedge per pt's request and c/o heel pain. (14 minutes) Assessment : Patient is independent with isometric exercises and HEP given. Per supervising PT, pt will be discharged from skilled therapy while at [facility] secondary to flexion restriction and being independent with HEP Plan for Treatment : Discontinue physical therapy per supervising physical therapist. RAFAT LEIGH, TRUCK TRAILER FINAL INSPECTOR - 08/25/2018 15:45 EDT Pain Assessment Pain Comment : NO c/o pain at rest. RAFAT LEIGHBOBO - 08/25/2018 15:45 EDT Image 1 - Images currently included in the form version of this document have not been included in the text rendition version of the form. [facility] PT Charges PT Therap. Exercise 15 min : 1 RAFAT LEIGHBOBO - 08/25/2018 15:45 EDT documented in this encounter Plan of Treatment Not on file documented as of this encounter Visit Diagnoses Not on filedocumented in this encounter
--- OUTSIDE RECORDS SUMMARY | 2024-08-09 13:25 | XMS_ITS | Encounter Summary ---
Author Organization [employer] Address [address] [place] [address] Care Team Providers Care Plant Custodian Name Role Phone Unavailable Primary Care Provider Unavailabl e Encounter Details Date Type Department Care Team (Late st Contact Info) Description 06/29/2019 Transcribed Document [facility] [place] [address] [place] [address] ProviderMariela MD [address], [place] [id number] Social History Tobacco Use Types Packs/Day Years Used Date Smoking Tobacco: Never Assessed Comments Unknown Sex and Gender Information Value Date Recorded Sex Assigned at Female 09/02/2021 8:57 PM CDT Legal Sex Female 6:58 PM CDT Gender Identity Female 09/02/2021 8:57 PM CDT Sexual Orientation Not on file documented as of this encounter Miscellaneous Notes * Cerner Conversion Note - Historical ProviderMD - 06/29/2019 2:00 AM CDT Coordinate Measuring Machine Operator Details Entered On: 06/29/2019 3:41 EDT Performed On: 06/29/2019 2:00 EDT by Bibi Gallagher RN Order Details Order Detail : N/A IV Order Detail : 1 Oxygen Order Detail : 1 Nurse Collect Order Detail : 1 Lift/Transfer : Moderate assist Central Line Order Detail : Yes Room Service : Appropriate Arterial Line : No Bibi Gallagher RN - 06/29/2019 3:41 EDT documented in this encounter Plan of Treatment Not on file documented as of this encounter Visit Diagnoses Not on filedocumented in this encounter
--- OUTSIDE RECORDS SUMMARY | 2024-08-09 13:25 | XMS_ITS | Encounter Summary ---
Author Organization [employer] Address [address] [place] [address] Care Team Providers Care Budget Report Clerk Name Role Phone Unavailable Primary Care Provider Unavailabl e Encounter Details Date Type Department Care Team (Late st Contact Info) Description 06/17/[address] [facility] [place] Medicine [facility] [place] [address] ProviderMariela MD [address] [place] [address] Social History Tobacco Use Types [...] Conversion Note - Historical ProviderMD - 06/17/2019 5:09 AM CDT Patient: SOFIA BARLOW Age: 79 years Sex: Female : 1940 Associated Diagnoses: None Author: ROJELIO NUNEZ, [facility] Pharmacy Note: Vancomycin per Pharmacy Clinical Pharmacy Note Re:Vancomycin Creatinine Clearance (Current Encounter/Past 24 Hours) Creatinine Level 1.65 mg/dL HI 06/17/2019 04:05 Bun/Creatinine 33.3 HI 06/17/2019 04:07 Estimated Creatinine Clearance 28.24 mL/Min 06/17/2019 04:05 CBC Results (Current Encounter/Past 24 Hours) WBC 21.1 K/uL HI 06/17/2019 03:50 Hct 31.3 % LOW 06/17/2019 03:50 Hgb 10.0 Gram/dL LOW 06/17/2019 03:50 Platelet Count 265 K/uL 06/17/2019 03:50 Patient Parameters: Height:149.86 cm Weight:91.82 kg Pharmacokinetic parameters: CrCl=28.24 ml/min Ke=0.0278 hr-1 Vd=59.092 L t1/2=24.893 hr Assessment & Plan: Vancomycin 2000mg IV loading dose. Peak level ordered for ~2 hours post infusion. (loading dose) Random level ordered for ~25 hours after initial peak level. Vancomycin 750mg IV Q24H. Clinical pharmacist to follow levels and adjust as needed. Thanks, Pharmacy Electronically signed by [facility] Conversion Intake Worker Cerner at 06/16/2022 8:22 PM CDT documented in this encounter Plan of Treatment Not on file documented as of this encounter Visit Diagnoses Not on filedocumented in this encounter
--- OUTSIDE RECORDS SUMMARY | 2024-08-09 13:25 | XMS_ITS | Encounter Summary ---
Author Organization [employer] Address [address] [place] [address] Care Team Providers Care Airport Sales Agent Name Role Phone Unavailable Primary Care Provider Unavailabl e Encounter Details Date Type Department Care Team (Late st Contact Info) Description 06/17/2019 Transcribed Document [facility] [place] [facility] [place] [address] ProviderMariela MD [address] [place] [address] Social History Tobacco Use Types Packs/Day [...] Conversion Note - Historical ProviderMD - 06/17/2019 9:28 AM CDT Patient: SOFIA GILL Age: 79 Years Sex: Female : 1940 Chief Complaint Patient had vomiting a couple days ago, began feeling worse and both knees were hurting, eventually causing too much pain and weakness to walk. Reason for Consultation Painful left total knee History of Present Illness 79-year-old female with a complex history to her left knee. She had a history of left total knee replacement complicated by periprosthetic fracture and subsequent open reduction internal fixation. That eventually failed and she underwent attempted distal femoral replacement unfortunately that became loose and painful for her and was revised. Following that revision she had a fall in early postoperative period with rupture of her skin closure and arthrotomy as well as the patella tendon avulsion. She is treated with irrigation debridement washout and attempted repair patella tendon following mobilization unfortunately she developed a chronic extensor lag this was approximately 2 years ago. Over the last several days she's had worsening pain worsen the left knee difficulty with ambulation she presented to a local emergency room with low blood pressure increased white count and some mild confusion was transferred here for definitive management. At baseline she walks with a walker and has difficulty with mobilization due to the chronic extensor lag she has significant medical comorbidities Review of Systems Constitutional: [No fevers, chills, sweats] Eye: [No recent visual problems] ENMT: [No ear pain, nasal congestion, sore throat] Respiratory: [No shortness of breath, cough] Cardiovascular: [No Chest pain, palpitations, syncope] Gastrointestinal: [No nausea, vomiting, diarrhea] Genitourinary: [No hematuria] Vital Signs T: 36.6 ??C TMIN: 36.6 ??C TMAX: 36.7 ??C HR: 95(Monitored) RR: 18 BP: 91/59 SpO2: 99% HT: 149.86 cm WT: 91.82 kg BMI: 40.9 Oxygen Settings (Last) Oxygen Therapy Mode: Room air (06/17/19 07:30:00) Physical Exam LLE: Skin appears well-healed there is no significant surrounding erythema of the knee however in the distal aspect of the foot and ankle there is significant appears to be cellulitic-like changes of the skin there is a palpable effusion patient has baseline extensor mechanism failure and has a complete extensor lag unable to do straight leg raise SILT SP/DP/T Motor I EHL/FHL/TA/GS All comp s/c CRF< 2 sec DP 2 + Procedure: Under sterile conditions a 5 mL 1% lidocaine was injected into the skin and subcutaneous tissue surrounding the superior lateral portion of the knee with a 22-gauge needle following this an 18-gauge needle was inserted 10 mL of very purulent turbid looking fluid was aspirated and sent to lab for cell count and culture hemostasis was achieved Band-Aid was placed patient tolerated procedure well Assessment/Plan 79-year-old female with a 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 A long discussion with the patient and she was aware of infection in this knee would likely result in amputation the femoral implant is well cemented very proximally into the femur and likely removal would not provide enough bone stock to be able to reconstruct. She voiced understanding of this I did talk with Dr. Mendenhall her original surgeon who is in agreement. He was going to check with Dr. Waddell at [facility] for potential consultation for amputation versus amputation here. Will see what the cell count and cultures show Infectious disease consult to guide antibiotic therapy Patient does not appear septic now they are afebrile and vital signs are stable and does not require emergent debridement Mechanical DVT prophylaxis Pain control Weightbearing as tolerated left lower extremity would recommend a knee immobilizer when out of bed Cellulitis, unspecified, Cellulitis, unspecified Orders: lidocaine, 10 mL, IntraArtiCULAR, Inj, 1-Time, Stop 06/17/19 8:25:00 EDT, STAT, Start 06/17/19 8:25:00 EDT Cell Count Body Fluid w/ Diff If Ind Culture Anaerobic Culture Body Fluid and Stain VTE Prophylaxis - Medical Sequential Compression Device Start: 06/16/19 21:25:00 EDT, Bilateral, Length: Knee High, While patient is in bed, Continuous Order (DONNA DRIVER) Provider Information Attending Physician - DONNA DRIVER MD-INT Admitting Physician - DONNA DRIVER MD-INT Consulting Physician - MARCI BRAGA MD-ORT Consulting Physician - LENORA SANTANA MD (ID consult in AM) Consulting Physician - NEWTON SANTANA MD-INF Problem List/Past Medical History Ongoing Cardiac arrhythmia Cataract Chronic venous insufficiency Constipation Edema - BLE History of obstructive sleep apnea HTN (hypertension) Hx: GERD (gastroesophageal reflux disease) Hypercholesteremia Hypothyroid Kidney cysts right Knee pain, bilateral Lung abnormality right Murmur, cardiac Osteoarthritis Osteoporosis Pain management Redness bilateral lower legs Seasonal allergies Shoulder pain, bilateral Sleep apnea Historical No qualifying data Procedure/Surgical History REPLACE OF R KNEE JT WITH SYNTH [...] FEMORAL W SYNTH SUB, CEMENT, OPEN (10/26/2016), [place] filter, lap band gastric bypass, left knee ORIF, left shoulder ORIF, left TKA, left TSA, revision left TKA, right RCR, x 2. Medications Inpatient acetaminophen-HYDROcodone 325 mg-5 mg oral tablet, 1 Tab, Oral, Q4H, PRN acetaminophen-HYDROcodone 325 mg-5 mg oral tablet, 2 Tab, Oral, Q4H, PRN Benadryl, 25 mg= 1 Tab, Oral, Q4H, PRN calcium gluconate calcium gluconate + Sodium Chloride 0.9% intravenous solution 100 mL calcium gluconate + Sodium Chloride 0.9% intravenous solution 100 mL Caltrate 600 + D, 1 Tab, Oral, BID cloNIDine, 0.1 mg= 1 Tab, Oral, Q4H, [...] 3 mL, Nebulized Inhalation , RT_Q6H, PRN fluticasone 50 mcg/inh nasal spray, 2 [place], Nostrils Both, BID, PRN gabapentin, 300 mg= 1 Cap, Oral, At Bedtime, PRN influenza virus vaccine, inactivated, 0.5 mL, IntraMuscular, [id number] lidocaine 1% preservative-free injectable solution, 10 mL, IntraArtiCULAR, 1-Time lisinopril, 10 mg= 1 Tab, Oral, Daily loratadine, 10 mg= 1 Tab, Oral, Daily magnesium sulfate, 2 Gram= 50 mL, IV Piggyback, Daily, PRN magnesium sulfate, 2 Gram= 50 mL, IV Piggyback, Q2H, PRN metoclopramide, 5 mg= 1 mL, IV Push, Q6H, PRN Milk of Magnesia 8% oral suspension, 30 mL, Oral, Daily, PRN MiraLax, 17 Gram= 1 Packet, Oral, Daily potassium chloride 10 mEq/50 mL intravenous solution, 10 mEq= 100 mL, IV Piggyback, Q1H, PRN potassium chloride 20 mEq oral tablet, extended release, 20 mEq= 1 Tab, Oral, Q2H, PRN potassium chloride 20 mEq oral tablet, extended release, 60 mEq= 3 Tab, Oral, Q2H, PRN Rocephin + Sodium Chloride 0.9% intravenous solution 50 mL Sodium Chloride 0.45% intravenous solution 1,000 mL, 1000 mL, IntraVENous sodium phosphate sodium phosphate Synthroid, 100 mcg= 1 Tab, Oral, Daily Transderm-Scop 1.5 mg transdermal film, extended release, 1 Patch, TransDermal, Q3Days, PRN traZODone, 50 mg= 1 Tab, Oral, At Bedtime, PRN Tylenol, 650 mg= 2 Tab, Oral, Q4H, PRN Xanax, 0.25 mg= 1 Tab, Oral, Q6H, PRN Zofran, 4 mg= 2 mL, IV Push, Q4H, PRN Home aspirin 81 mg oral delayed release tablet, 81 mg= 1 Tab, Oral, Daily Caltrate 600 + D, 1 Tab, Oral, BID CoQ10, 1 Tab, Oral, Daily Crestor 10 mg oral tablet, 10 mg= 1 Tab, Oral, At Bedtime cyanocobalamin 5000 mcg oral tablet, extended release, 5000 mcg= 1 Tab, Oral, Daily Cymbalta 60 mg oral delayed release capsule, 60 mg= 1 Cap, Oral, Daily diclofenac, 75 mg, Oral, BID fluticasone 50 mcg/inh nasal spray, 2 [place], Nostrils Both, BID, PRN Lasix 40 mg oral tablet, 40 mg= 1 Tab, Oral, Daily levocetirizine 5 mg oral tablet, 5 mg= 1 Tab, Oral, QPM lisinopril 10 mg oral tablet, 10 mg= 1 Tab, Oral, Daily magnesium citrate 100 mg oral tablet, 1 Tab, Oral, BID MiraLax oral powder for reconstitution, 17 Gram, Oral, Daily Non Formulary Medication, 2 Cap, Oral, Daily potassium chloride 20 mEq oral tablet, extended release, 20 mEq= 1 Tab, Oral, BID Synthroid 100 mcg (0.1 mg) oral tablet, 100 mcg= 1 Tab, Oral, Daily traMADol 50 mg oral tablet, 100 mg= 2 Tab, Oral, Q12H, PRN Ventolin HFA 90 mcg/inh inhalation aerosol, 1 Puff, Inhalation, QID, PRN Allergies amLODIPine valdecoxib Bextra (Itching) Latex (Itching) [...] Never smoker. Used Tobacco, but Quit No. Lab Results Test Name Test Result Date/Time Sodium Level 130 mmol/L (Low) 06/17/2019 03:44 EDT Potassium Level 5.8 mmol/L (High) 06/17/2019 03:44 EDT Chloride Level 97 mmol/L (Low) 06/17/2019 03:44 EDT Carbon Dioxide Level 26 mmol/L 06/17/2019 03:44 EDT Anion Gap 13 06/17/2019 03:44 EDT Glucose Level 79 mg/dL 06/17/2019 03:44 EDT Blood Urea Nitrogen 55 mg/dL (High) 06/17/2019 03:44 EDT Creatinine Level 1.65 mg/dL (High) 06/17/2019 03:44 EDT eGFR 37 mL/min/1.73m2 (Low) 06/17/2019 03:44 EDT eGFR NonAfrican 30 mL/min/1.73m2 (Low) 06/17/2019 03:44 EDT Bun/Creatinine 33.3 (High) 06/17/2019 03:44 EDT Calcium Level 8.0 mg/dL (Low) 06/17/2019 03:44 EDT Protein Total 5.2 Gram/dL (Low) 06/17/2019 03:44 EDT Albumin Level 2.0 Gram/dL (Low) 06/17/2019 03:44 EDT Globulin 3.2 Gram/dL 06/17/2019 03:44 EDT A/G Ratio 0.6 (Low) 06/17/2019 03:44 EDT Bilirubin Total 0.5 mg/dL 06/17/2019 03:44 EDT Alk Phos 133 Units/Liter 06/17/2019 03:44 EDT AST 38 Units/Liter (High) 06/17/2019 03:44 EDT ALT 29 Units/Liter 06/17/2019 03:44 EDT Glucose POC2 76 mg/dL 06/17/2019 06:39 EDT CRP 33.3 mg/dL (High) 06/17/2019 03:44 EDT Lactic Acid Level 1.1 mmol/L 06/17/2019 03:44 EDT WBC 21.1 K/uL (High) 06/17/2019 03:44 EDT RBC 3.28 Million/uL (Low) 06/17/2019 03:44 EDT Hgb 10.0 Gram/dL (Low) 06/17/2019 03:44 EDT Hct 31.3 % (Low) 06/17/2019 03:44 EDT MCV 95.4 fL (High) 06/17/2019 03:44 EDT MCH 30.5 pg 06/17/2019 03:44 EDT MCHC 31.9 Gram/dL (Low) 06/17/2019 03:44 EDT Platelet Count 265 K/uL 06/17/2019 03:44 EDT MPV 9.7 fL 06/17/2019 03:44 EDT RDW 12.9 % 06/17/2019 03:44 EDT Neutrophil Percent Man 92 % (High) 06/17/2019 03:44 EDT ANC # 19 K/uL 06/17/2019 03:44 EDT Lymph Percent Man 3 % (Low) 06/17/2019 03:44 EDT ALYC # 1 K/uL 06/17/2019 03:44 EDT [place] Percent Man 5 % 06/17/2019 03:44 EDT RBC Morphology Normal 06/17/2019 03:44 EDT Toxic Granulation 3+ (Abnormal) 06/17/2019 03:[address] Estimate Adequate 06/17/2019 03:44 EDT Sed Rate Auto 130 mm/Hr (High) 06/17/2019 03:44 EDT Urine Type. U CleanCatch 06/17/2019 00:16 EDT Urine Color DK YELLOW 06/17/2019 00:16 EDT Urine Appearance CLEAR2 06/17/2019 00:16 EDT Urine Specific [place] 1.033 (High) 06/17/2019 00:16 EDT Urine pH Dipstick 5.0 (Low) 06/17/2019 00:16 EDT Urine Leukocyte Esterase SMALL2 (Abnormal) 06/17/2019 00:16 EDT Urine Nitrite NEGATIVE2 06/17/2019 00:16 EDT Urine Protein Dipstick TRACE2 (Abnormal) 06/17/2019 00:16 EDT Urine Glucose Dipstick NEGATIVE2 06/17/2019 00:16 EDT Urine Ketones Dipstick NEGATIVE2 06/17/2019 00:16 EDT Urine Urobilinogen Dipstick 0.2 06/17/2019 00:16 EDT Urine Bilirubin Dipstick SMALL2 (Abnormal) 06/17/2019 00:16 EDT Urine Blood Dipstick TRACE2 (Abnormal) 06/17/2019 00:16 EDT Ur RBC 0-2 (Abnormal) 06/17/2019 00:16 EDT Ur WBC 0-2 06/17/2019 00:16 EDT Ur Bacteria Trace (Abnormal) 06/17/2019 00:16 EDT Ur Amorph 1+ (Abnormal) 06/17/2019 00:16 EDT Ur Epithelial Cells None Seen 06/17/2019 00:16 EDT Ur Squamous Epithelial Cells 0-2 06/17/2019 00:16 EDT Ur Transitional Epi Cells 0-2 (Abnormal) 06/17/2019 00:16 EDT Procalcitonin 6.68 ng/mL (Critical) 06/17/2019 03:44 EDT documented in this encounter Plan of Treatment Not on file documented as of this encounter Visit Diagnoses Not on filedocumented in this encounter
--- OUTSIDE RECORDS SUMMARY | 2024-08-09 13:25 | XMS_ITS | Encounter Summary ---
Author Organization [employer] Address [address] [place] [address] Care Team Providers Care Aerospace Project Engineer Name Role Phone Unavailable Primary Care Provider Unavailabl e Encounter Details Date Type Department Care Team (Late st Contact Info) Description 06/29/2019 Transcribed Document [facility] [place] [facility] [place] [address] ProviderMariela MD [facility] [place] [address] Social History Tobacco Use Types [...] Conversion Note - Historical ProviderMD - 06/29/2019 10:36 AM CDT Patient: SOFIA GILL Age: 79 years Sex: Female : 1940 Associated Diagnoses: None Author: ARA JONES MD-INF ID Progress Note CC: Left knee pain Current antimicrobial therapy: Rocephin IV Subjective: Patient with No new complaints today does report some overall weakness and weakness of right leg and working with PT but hemodynamically stable no adverse drug effects. Objective Vitals Signs (last 24 hrs) Last Charted Minimum Maximum Temp 98.8 (JUN 28 07:00) 97.8 (JUN 27 23:00) 99.6 (JUN 27 16:00) Mon HR 87 (JUN 28 07:00) 87 (JUN 28 07:00) 96 (JUN 27 19:00) Resp Rate 18 (JUN 28 07:00) 18 (JUN 27 19:00) 20 (JUN 27 16:00) SBP 111 (JUN 28 08:57) 111 (JUN 28 07:00) H 153 (JUN 27 19:00) DBP L 42 (JUN 28 08:57) L 42 (JUN 28 07:00) 64 (JUN 27 16:00) SpO2 97 (JUN 28 07:00) 95 (JUN 27 16:00) 98 (JUN 27 23:00) Physical Examination: Gen: Alert, in no acute distress. HEENT: NC/AT, PERRLA, EOMI, sclera nonicteric, no conjunctival injection RESP: CTA bilaterally without rhonchi, rales, or wheezes. Nonlabored breathing CV: RRR, loud systolic murmur. GI: BS normoactive in all 4 quadrants, soft, nontender, nondistended : No chou in place MS: 2+ edema bilaterally knees, both knees are warm [...] 26) ALB L 2.4 (JUN 26) Micro: [facility]: 06/15 [facility] Blood cultures positive for group B strep [...] - at least weekly cbc/crp/cmp and esr --Continue work with PT documented in this encounter Plan of Treatment Not on file documented as of this encounter Visit Diagnoses Not on filedocumented in this encounter
--- OUTSIDE RECORDS SUMMARY | 2024-08-09 13:25 | XMS_ITS | Encounter Summary ---
Author Organization [employer] Address [address] [place] [address] Care Team Providers Care Pencil Maker Name Role Phone Unavailable Primary Care Provider Unavailabl e Encounter Details Date Type Department Care Team (Late st Contact Info) Description 08/22/2018 Transcribed Document [facility] [place] [facility] [place] [address] ProviderMariela MD [facility] [place] [address] Social History Tobacco Use Types [...] Conversion Note - Historical ProviderMD - 08/22/2018 9:14 AM CDT [facility] [place] Summary Primary Physician: NIMO EPPS MD-ORT Finalized Date/Time: 08/22/18 12:13:23 Pt. Name: SOFIA GILL Eufemia Bal/Sex: 1940 Female Med Rec #: [id number] Physician: NIMO EPPS MD-ORT Financial #: [id number] Pt. Type: O Room/Bed: Admit/Disch: 08/22/18 04:51:00 - Institution: [facility] OR PACU Case Times Entry 1 In PACU I 08/22/18 11:07:00 Ready for PACU 08/22/18 12:00:00 Discharge Discharge from PACU 08/22/18 12:15:00 I Last Modified By: Layla Rapp RN 08/22/18 12:13:07 [facility] Main OR PACU Case Times Audit 08/22/18 12:13:07 Twisthand: [email or web address] Modifier: [email or web address] 1 <*> Ready for PACU Discharge 08/22/18 12:12:00 1 <*> Discharge from PACU I 08/22/18 12:12:00 08/22/18 12:12:55 Twisthand: [email or web address] Modifier: [email or web address] <+> 1 Ready for PACU Discharge <+> 1 Discharge from PACU I [facility] Main OR PACU Acuity Entry 1 Start Time 08/22/18 12:01:00 Stop Time 08/22/18 12:15:00 Acuity Level [facility] PACU Acuity I Last Modified By: Layla Rapp RN 08/22/18 12:13:20 Finalized By: Layla Rapp RN Document Signatures Signed By: Layla Rapp RN 08/22/18 12:13 documented in this encounter Plan of Treatment Not on file documented as of this encounter Visit Diagnoses Not on filedocumented in this encounter
--- OUTSIDE RECORDS SUMMARY | 2024-08-09 13:25 | XMS_ITS | Encounter Summary ---
Author Organization [employer] Address [address] [place] [address] Care Team Providers Care Engineering Coordinator Name Role Phone Unavailable Primary Care Provider Unavailabl e Encounter Details Date Type Department Care Team (Late st Contact Info) Description 08/09/2018 Transcribed Document [facility] [place] Medicine [address] [place] [address] ProviderMariela MD [address] [place] [address] Social History Tobacco Use Types Packs/Day Years Used Date Smoking Tobacco: Never Assessed Comments Unknown Sex and Gender Information Value Date Recorded Sex Assigned at Female 09/02/2021 8:57 PM CDT Legal Sex Female 6:58 PM CDT Gender Identity Female 09/02/2021 8:57 PM CDT Sexual Orientation Not on file documented as of this encounter Miscellaneous Notes * Cerner Conversion Note - Historical ProviderMD - 08/09/2018 5:36 PM CDT Orthopedic Nurse Navigator Entered On: 08/22/2018 15:39 EDT Performed On: 08/09/2018 17:36 EDT by Zuleika Mcclendon electrical journeyman Nurse Navigator Assessment Attended [employer] : Yes [employer] AcademyType : Online [employer] Date : 08/09/2018 EDT Type of Surgery : Total Knee Replacement, Left Joint Navigator Assessment Note : The patient attended [employer] online. Zuleika Mcclendon RN - 08/22/2018 15:38 EDT documented in this encounter Plan of Treatment Not on file documented as of this encounter Visit Diagnoses Not on filedocumented in this encounter
--- OUTSIDE RECORDS SUMMARY | 2024-08-09 13:25 | XMS_ITS | Encounter Summary ---
Author Organization [employer] Address [address] [place] [address] Care Team Providers Care Tank Wagon Driver Name Role Phone Unavailable Primary Care Provider Unavailabl e Encounter Details Date Type Department Care Team (Late st Contact Info) Description 06/17/2019 Transcribed Document [facility] [place] [facility] [place] [address] ProviderMariela MD [address] [place] [id number] Social History Tobacco Use Types Packs/Day Years [...] Conversion Note - Historical ProviderMD - 06/17/2019 1:46 PM CDT Patient: SOFIA GILL Age: 79 years Sex: Female : 1940 Associated Diagnoses: None Author: NEWTON SANTANA MD-INF ID Consultation/Initial Hospital Visit Referring MD: Dr Dalia Jaffe Evaluating MD: Dr Newton Santana Date of admission: 06/16/19 Date of consultation: 06/17/19 Reason for consultation: left knee infection chief complaint: Difficulty ambulating in left knee pain and edema Current antimicrobial therapy: vancomycin and Rocephin IV HPI: Ms. Sofia Gill is a 79-year-old female being evaluated for left prosthetic knee infection. She has a past medical history of cardiac arrhythmias, cataracts, chronic venous insufficiency, obstructive sleep apnea, hypertension, GERD, hyperlipidemia, hypothyroidism, murmur, osteoarthritis, osteoporosis, redness of bilateral lower extremities, bilateral knee replacements, IVC filter, left shoulder replacement and right shoulder rotator cuff repair. She is a previous patient of Dr. 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 Cultures at that time were negative and she was treated with 6 weeks of IV ceftriaxone. She reportedly did follow up with [facility] office. She reportedly had her left total knee replacement in 2017 which is complicated by periprosthetic fracture and subsequent open fracture internal fixation and eventually failed and she underwent attempted distal femoral replacement which again failed and had to be revised. Following the second revision she had a fall in the early postoperative period with rupture of skin closure an arthrotomy as well as the patella tendon avulsion. She had a debridement and washout and attempted repair of the patella tendon following mobilization and developed a chronic extensor lag that was approximately 2 years ago. Over the last several days she's had worsening pain in the left knee and difficulty with ambulation. Due to this she presented to [facility]. There she had a CT of the chest which showed no acute findings and a 5 mm right lower lobe nodule is nonspecific. She had a CT of the abdomen and pelvis showed no acute abdominal or pelvic findings. She had a CT of the right knee showed extensive artifact from the right knee prosthesis with small suprapatellar effusion and mild amount edema above the knee. X-ray of the left knee showed atypical left knee prosthesis present with good alignment. Due to her extensive orthopedic history she was subsequently transferred to [facility] for further evaluation of the left knee. Blood cultures from [facility] with Group B Strep. Since arrival she has been afebrile and hemodynamically stable. Labs show she is with leukocytosis with a white blood cell count 21 with a neutrophil of 92%. Lactic acid is 1.1 with a CRP of 33. Pro-calcitonin 6.68. BUN/creatinine are 55 and 1.65 with a GFR of 30. UA showed trace bacteria, 0 to white blood cells, negative nitrites and small leukocyte esterase. Dr Moies also obtained a fluid sample from the left knee on 06/16. She has a listed allergy to penicillins and does not know what the reaction is that she has not taken this medication. She is currently receiving Rocephin IV and ID has been consulted for further evaluation and treatment. Of note: Per Dr. Carlos Wright's note in despite her penicillin allergy she can tolerate cephalexin and ceftriaxone. Allergies:Allergies (10) Active Reaction amLODIPine None Documented valdecoxib None Documented Bextra Itching etodolac Itching Latex Itching Mobic Itching Naprosyn Itching penicillin Shortness of breath phentermine unknown reaction sulfa drugs Itching Medications:Medications by Classification Antimicrobials cefTRIAXone + Sodium Chloride 0.9% intravenous solution 50 m - 2 Gram, IV Piggyback, [id number], infuse over 30 Minute(s), Routine Immunology influenza virus vaccine, inactivated - 0.5 mL, IntraMuscular, Inj, [id number] Cardiovascular cloNIDine - 0.1 mg, Oral, Tab, Q4H, PRN for Hypertension, Routine lisinopril - 10 mg, Oral, Tab, Daily, Routine rosuvastatin (Crestor) - 10 mg, Oral, Tab, At Bedtime, Routine Respiratory albuterol-ipratropium (DuoNeb 0.5 mg-2.5 mg/3 mL inhalation - 3 mL, Nebulized Inhalation, Inh, RT_Q6H, PRN for Shortness of Breath, Routine loratadine - 10 mg, Oral, Tab, Daily GI ondansetron (Zofran) - 4 mg, IV Push, Inj, Q4H, PRN for Nausea/Vomiting, Routine magnesium hydroxide (Milk of Magnesia 8% oral suspension) - 30 mL, Oral, Liquid, Daily, PRN for Constipation, Routine bisacodyl (Dulcolax Laxative) - 10 mg, Rectal, Supp, BID, PRN for Constipation, Routine docusate (Colace) - 100 mg, Oral, Cap, BID, Routine magnesium sulfate - 2 Gram 50 mL, IV Piggyback, Inj, Daily, Administer over 2 Hour(s), PRN for Other (See Comment), Routine magnesium sulfate - 2 Gram 50 mL, IV Piggyback, Inj, Q2H, Administer over 2 Hour(s), PRN for Other (See Comment), Routine polyethylene glycol 3350 (MiraLax) - 17 Gram, Oral, Powder, Daily sodium phosphate - 15 mMole 5 mL, IV Piggyback, Daily, Administer over 5 Hour(s), PRN for Other (See Comment), Routine sodium phosphate - 15 mMole 5 mL, IV Piggyback, Q6H, Administer over 5 Hour(s), PRN for Other (See Comment), Routine metoclopramide - 5 mg, IV Push, Inj, Q6H, PRN for Nausea/Vomiting, Routine scopolamine (Transderm-Scop 1.5 mg transdermal film, extende - 1 Patch, TransDermal, Patch, Q3Days, PRN for Nausea/Vomiting, Routine Endocrine levothyroxine (Synthroid) - 100 mcg, Oral, Tab, Daily, Routine Neuro gabapentin - 300 mg, Oral, Cap, At Bedtime, PRN for Insomnia, Routine magnesium sulfate - 2 Gram 50 mL, IV Piggyback, Inj, Daily, Administer over 2 Hour(s), PRN for Other (See Comment), Routine *Duplicate* magnesium sulfate - 2 Gram 50 mL, IV Piggyback, Inj, Q2H, Administer over 2 Hour(s), PRN for Other (See Comment), Routine *Duplicate* Psych traZODone - 50 mg, Oral, Tab, At Bedtime, PRN for Insomnia, Routine DULoxetine (Cymbalta) - 60 mg, Oral, Cap, Daily, Routine HEENT fluticasone nasal (fluticasone 50 mcg/inh nasal spray) - 2 [place], Nostrils Both, [place], BID, PRN for Allergies, Routine Pain Meds HYDROmorphone (Dilaudid) - 0.5 mg, IV Push, Inj, Q2H, PRN for Pain (Severe 7-10), Routine acetaminophen-hydrocodone (acetaminophen-HYDROcodone 325 mg- - 1 Tab, Oral, Tab, Q4H, PRN for Pain (Moderate 4-6), Routine acetaminophen-hydrocodone (acetaminophen-HYDROcodone 325 mg- - 2 Tab, Oral, Tab, Q4H, PRN for Pain (Severe 7-10), Routine acetaminophen (Tylenol) - 650 mg, Oral, Tab, Q4H, PRN for Other (See Comment), Routine Sedatives ALPRAZolam (Xanax) - 0.25 mg, Oral, Tab, Q6H, PRN for Anxiety, Routine diphenhydrAMINE (Benadryl) - 25 mg, Oral, Tab, Q4H, PRN for Itching, Routine Vitamins calcium gluconate - 1 Gram 10 mL, IV Piggyback, Daily, Administer over 60 Minute(s), PRN for Other (See Comment), Routine calcium gluconate + Sodium Chloride 0.9% intravenous solutio - 2 Gram 20 mL, IV Piggyback, Daily, Administer over 60 Minute(s), PRN for Other (See Comment), Routine calcium gluconate + Sodium Chloride 0.9% intravenous solutio - 2 Gram 20 mL, IV Piggyback, Q12H, Administer over 60 Minute(s), PRN for Other (See Comment), Routine calcium-vitamin D (Caltrate 600 + D) - 1 Tab, Oral, Tab, BID, Routine cyanocobalamin - 5,000 mcg, Oral, Tab, Daily, Routine magnesium sulfate - 2 Gram 50 mL, IV Piggyback, Inj, Daily, Administer over 2 Hour(s), PRN for Other (See Comment), Routine *Duplicate* magnesium sulfate - 2 Gram 50 mL, IV Piggyback, Inj, Q2H, Administer over 2 Hour(s), PRN for Other (See Comment), Routine *Duplicate* potassium chloride (potassium chloride 10 mEq/50 mL intraven - 10 mEq 100 mL, IV Piggyback, Inj, Q1H, Administer over 1 Hour(s), PRN for Other (See Comment), Routine potassium chloride (potassium chloride 20 mEq oral tablet, e - 20 mEq 1 Tab, Oral, CR Tab, Q2H, PRN for Other (See Comment), Routine potassium chloride (potassium chloride 20 mEq oral tablet, e - 60 mEq 3 Tab, Oral, CR Tab, Q2H, PRN for Other (See Comment), Routine Other ubiquinone (Coenzyme Q10) - 50 mg, Oral, Cap, Daily Undefined Medications lidocaine (lidocaine 1% preservative-free injectable solutio - 10 mL, IntraArtiCULAR, Inj, 1-Time Past Medical History: Active Problems (21) Cardiac arrhythmia Cataract Chronic venous insufficiency Constipation Edema - BLE History of obstructive sleep apnea HTN (hypertension) Hx: GERD (gastroesophageal reflux disease) Hypercholesteremia Hypothyroid Kidney cysts right Knee pain, bilateral Lung abnormality right Murmur, cardiac Osteoarthritis Osteoporosis Pain management Redness bilateral lower legs Seasonal allergies Shoulder pain, bilateral Sleep apnea Past Surgical History: REPLACE OF R KNEE JT WITH SYNTH [...] revision left TKA, right RCR, x 2. Family History: father from suicide Mother from pneumonia Social History: denies EtOH, tobacco or illicit drug use Review of Systems: CONSTITUTION: Denies fever, chills, sweats, malaise, weakness, fatigue HEENT: Denies headache, syncope, eye pain, blurry vision, ear pain, tinnitus, photophobia, sinus tenderness, rhinorrhea, dysphagia, oral sores NECK: Denies pain, stiffness LYMPH: Denies lymph nodes RESP: Denies shortness of breath, cough, hemoptysis CV: Denies chest pain, palpitations, murmurs GI: Denies abdominal pain, nausea, vomiting, diarrhea, constipation, hematemesis, hematochezia, melena : Denies flank pain, dysuria, frequency of urination, urgency of urination or burning with urination MS: Positive for left knee edema and pain as well as difficulty ambulating SKIN: positive for bilateral lower extremity redness NEURO: Denies strokes, seizures, Numbness/tingling, confusion PSYCH: Denies anxiety and depression or suicidal ideation ENDOCRINE: Denies diabetes and thyroid issues 12 systems were reviewed and negative except for above. Physical Examination: Vitals Signs (last 24 hrs) Last Charted Minimum Maximum Temp 97.8 (JUN 16 06:08) 97.8 (JUN 16 06:08) 98 (JUN 16 01:50) Mon HR 95 (JUN 16 07:30) 88 (JUN 16 01:50) 95 (JUN 16 07:30) Resp Rate 18 (JUN 16 07:30) 18 (JUN 15 23:45) 20 (JUN 16 06:08) SBP 91 (JUN 16 06:08) 91 (JUN 16 06:08) 113 (JUN 16 01:50) DBP L 59 (JUN 16 06:08) L 51 (JUN 15 23:45) 60 (JUN 16 01:50) MAP 64 (JUN 16:08) 59 (JUN 15 23:45) 71 (JUN 16 01:50) SpO2 99 (JUN 16 07:30) L 93 (JUN 16 01:50) 100 (JUN 15 23:45) Exam: Gen: Alert, in no acute distress, appears stated age HEENT: NC/AT, PERRLA, EOMI, sclera nonicteric, no conjunctival injection, sinuses nontender, Oropharynx without thrush, lesions, or peridontal disease NECK: Supple, no masses RESP: CTA bilaterally without rhonchi, rales, or wheezes. Nonlabored breathing CV: RRR, audible grade 2 murmur. No edema GI: BS normoactive in all 4 quadrants, soft, nontender, nondistended, no HSM, no guarding or rebound tenderness : No chou in place MS: to 4+ edema bilaterally knees, both knees are warm to touch left knee is tender in significantly more edematous than the right knee. SKIN: No eruptions, lesions, or rashes NEURO: A and O x 4, CN II-XII grossly in tact PSYCH: Normal insight and judgment, cooperative with PE Labs:Labs (Last four charted values) WBC H 21.1 (JUN 16) HB L 10.0 (JUN 16) HCT L 31.3 (JUN 16) Plt 265 (JUN 16) Na L 130 (JUN 16) K H 5.8 (JUN 16) Cl L 97 (JUN 16) CO2 26 (JUN 16) BUN H 55 (JUN 16) Cr H 1.65 (JUN 16) Glu R 79 (JUN 16) Ca L 8.0 (JUN 16) Lactic 1.1 (JUN 16) AST H 38 (JUN 16) ALT 29 (JUN 16) ALK P 133 (JUN 16) T Bili 0.5 (JUN 16) PTN L 5.2 (JUN 16) ALB L 2.0 (JUN 16) Micro: [facility]: 06/15 [facility] Blood cultures positive for group B strep and 2/2 bottles SJE: 06/16 fluid aspiration of left knee shows 118,150 white blood cells 06/16 repeat blood cultures have been collected and are in process 06/16 MRSA surveillance culture and pro/pending 06/16 Urine culture in process/pending Rad:No Radiology Results Found IMPRESSION: - 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 S/p synovial fluid aspiration on 06/16, 118,000 WBC, interestingly with lymphocytic predominance, rather than neutrophilic. - Streptococcus agalactiae bacteremia: cultures positive at OSH, repeats pending - Left knee cellulitis: improving - Neutrophilic leukocytosis - Sepsis due to above - Acute renal insufficiency - Obesity - Cardiac murmur: pt says chronic but need to screen for endocarditis - penicillin allergy: tolerated Keflex and Ceftriaxone RECOMMENDATIONS/PLANS: - f/u pending blood cultures and synovial fluid cultures from [facility] - I called lab to add fungal synovial fluid culture due to lymphocytic predominance 1 - Follow CBC, CMP, CRP - TTE to screen for endocarditis - stop vancomycin - continue ceftriaxone 2 gm daily - likely to need a prolonged course of IV antibiotics - orthopedic surgery following. Will need additional intervention, possibly amputation per Dr Moise. I will follow over the weekend, then another [facility] physician will take over care on Wednesday. Call if any questions. Dr. Newton Santana has obtained history, performed physical examination and formulated the above plan of care Alpesh Velazquez APRN for Dr. Newton Santana [facility] I have edited this note to reflect my history, exam, assessment and plan. Electronically signed by Maureen Cornejo Conversion Interventional Neuroradiologist Cerner at 06/16/2022 8:10 PM CDT documented in this encounter Plan of Treatment Not on file documented as of this encounter Visit Diagnoses Not on filedocumented in this encounter
--- OUTSIDE RECORDS SUMMARY | 2024-08-09 13:25 | XMS_ITS | Encounter Summary ---
Author Organization [employer] Address [address] [place] [id number] Care Team Providers Care Abrasive Grader Name Role Phone Unavailable Primary Care Provider Unavailabl e Encounter Details Date Type Department Care Team (Late st Contact Info) Description 06/17/2019 Transcribed Document [facility] [place] Medicine [address] [place] [address] ProviderMariela MD [address] [place], [place] [phone] Social History Tobacco Use Types Packs/Day Years [...] Conversion Note - Historical ProviderMD - 06/17/2019 10:06 AM CDT Initial Discharge Planning Entered On: 06/17/2019 10:12 EDT Performed On: 06/17/2019 10:06 EDT by Charleen Ortiz Social Worker-Engine Setter Initial Assessment I Previously Documented Living Environment : No qualifying data available. Living Situation : Home Patient Lives With : Alone Is the Patient a Caregiver at Home? : No Emergency Contact #1 : Sam Barlow Emergency Contact #1 Emergency Contact #1 Relationship : Son Emergency Contact #2 : Sy Barlow Emergency Contact #2 Emergency Contact #2 Relationship : Son Enter Doctors Name : Darlene Gomez Does Patient have PCP Listed? : Yes Legal Guardian : No Is Guardianship Needed : No Charleen Ortiz Social Worker-Engine Setter - 06/17/2019 10:06 EDT Initial Assessment II Sensory and Motor Deficits : Weakness Current Home Treatments and Equipment : Cane, Walker, Wheelchair Services and Community Resources : Private Duty Care Does the Patient have a Floor to SNF Benefit? : No Charleen Ortiz Social Worker-Bsw - 06/17/2019 10:06 EDT Discharge Needs I Anticipated Discharge To, CM : Acute Care Facility, Home with home health, [facility] facility Current Home Treatment/Equipment : Current Home Treatment/Equipment No qualifying data available. Post Acute/Home Treatments : None Documentation Status Complete : Yes Charleen Ortiz Social Worker-Bsw - 06/17/2019 10:06 EDT Discharge Needs II Professional Skilled Services : Professional Skilled Services No qualifying data available. Services and Community Resources : Physical Therapy Needs Assistance with Transportation : Maybe Discharge Options Discussed with Patient : Outpatient services Charleen Ortiz Social Worker-Bsw - 06/17/2019 10:06 EDT Narrative Note Narrative Note : 06/16 Spoke with pt via phone. Pt reports she resides alone at [address] [place] [address] in [place]. Pt reports she primarily uses a walker for mobility. Pt reports she completes most ADLs independently. However, she does have a person who assist her with housekeeping and grocery shopping. Pt denied being current with home health services prior to admission. 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 Per Ortho note, Dr. Saenz is checking with Dr. Waddell at for possible consulation for amputation there vs here. Continue to follow.... Charleen Ortiz Social Worker-Sulema - 06/17/2019 10:06 EDT documented in this encounter Plan of Treatment Not on file documented as of this encounter Visit Diagnoses Not on filedocumented in this encounter
--- OUTSIDE RECORDS SUMMARY | 2024-08-09 13:25 | XMS_ITS | Encounter Summary ---
Author Organization [employer] Address [address] [place] [address] Care Team Providers Care Airway Traffic Controller Name Role Phone Unavailable Primary Care Provider Unavailabl e Encounter Details Date Type Department Care Team (Late st Contact Info) Description 07/13/2019 Transcribed Document [facility] [place] [address] ProviderMariela MD [address] [place] [address] Social History Tobacco Use Types [...] Conversion Note - Historical ProviderMD - 07/13/2019 2:29 PM CDT Care Management Assessment/Plan Entered On: 07/13/2019 14:37 EDT Performed On: 07/13/2019 14:29 EDT by YOANNA ARAUJO RN Care Management Note Care Management Note : Yoanna Araujo 07/13/2019 1400 received call from Ratna with [facility] offering patient a bed, [facility] and needed a current height and weight. Still waiting to see if any other bed offers come through. I also sent referral to [facility]. Care Management Note Report : YOANNA ARAUJO, EDDIE - 07/13/19 11:04:03 Yoanna Araujo 07/13/2019 1100 faxed out referral for placement for patient to [facility] nursing and rehab, [facility] facilities and triology facilities. Awaiting call backs. СВЕТЛАНА WANG - 07/12/19 12:19:17 07/12/2019 Fax received from [facility] with approval for LTAC services with a request for updated discharge plans and clinical info to support needs if not discharged. Auth#[id number]. Clinical review or discharge summary to be faxed by 07/17/2019. YOANNA ARAUJO RN - 07/12/19 08:39:48 Yoanna Araujo 07/12/2019 0830 - faxed clinical review the [facility] at [phone] to request approval for extended ltac services. Auth#[id number], awaiting approval. YOANNA ARAUJO RN - 06/29/19 [...] health and she has been to the [facility] and [facility] in the past. She has the following equipment at home: wheel chair, walker, cane and shower chair. Her discharge plan is to go to rehab prior to returning home. PCP: Flavia MARQUEZ [address] [place] [address] Property Adjuster: Dr. Shemar Barger [address] [id number] Clemente Del Rio MD - Rheumatology - [address] [place] [address] Preferences: Home Health: [facility]: no preferences DME: [facility] - [address] [facility] [address], [place] [address] Correction: [facility] facility: no preferences Will continue to monitor patient for anticipated discharge needs YOANNA ARAUJO RN - 06/29/19 08:30:20 Yoanna Araujo 06/29/2019 0830 received fax from [employer] with approval for extended ltac coverage with next clinical review due on 07/12/2019. Auth#[id number]. Will continue to follow for anticipated discharge needs. YOANNA ARAUJO RN - 06/28/19 08:35:06 Yoanna Araujo 06/28/2019 0830 Faxed clinical review to [facility] at to request approval for extended Ltac services. Auth#[id number]. Pending Approval. Documentation Status Complete : Yes YOANNA ARAUJO RN - 07/13/2019 14:29 EDT documented in this encounter Plan of Treatment Not on file documented as of this encounter Visit Diagnoses Not on filedocumented in this encounter
--- OUTSIDE RECORDS SUMMARY | 2024-08-09 13:25 | XMS_ITS | Encounter Summary ---
Author Organization [employer] Address [address] [place] [address] Care Team Providers Care Heavy Truck Driver Name Role Phone Unavailable Primary Care Provider Unavailabl e Encounter Details Date Type Department Care Team (Late st Contact Info) Description 08/11/2018 Transcribed Document [facility] [place] Family Medicine [facility] [place] [address] ProviderMariela MD [place] [address] Social History Tobacco Use Types [...] Conversion Note - Historical ProviderMD - 08/11/2018 2:36 PM CDT PAT Adult Entered On: 08/11/2018 14:44 EDT Performed On: 08/11/2018 14:36 EDT by Karen Flores Rn Vital Measurements Temperature Source : Temporal artery scanning Temperature Mode : Fahrenheit Temperature, Fahrenheit : 98.0 Deg F Clinical Temperature, C : 36.7 Deg C Peripheral Pulse Rate : 87 bpm Respiratory Rate : 18 Breaths/Min Systolic Blood Pressure : 128 mmHg Diastolic Blood Pressure : 58 mmHg (LOW) Oxygen Saturation : 97 % Oxygen Therapy Mode : Room air Karen Flores Rn - 08/11/2018 14:36 EDT Height and Weight, Clinical Dosing Height Source : Stated Height Entry Format : Crawford Height, Feet : 4 ft(Converted to: 122 cm, 48 Inch) Height, Inches : 11.5 Inch(Converted to: 0 ft 12 Inch, 29.21 cm) Clinical Height : 151.13 cm Weight Source : Standing scale Weight Entry Format : Crawford Clinical Dosing Weight : 97.73 kg Weight, Pounds : 215 lb Body Surface Area (BSA) : 1.91 m2 Body Mass Index : 42.8 kg/m2 (>HHI) [place] Body Weight : 44 kg Karen Flores Rn - 08/11/2018 14:36 EDT Health Histories Smoking Status : Never (less than 100 in lifetime; none in last 30 days) Smokeless Tobacco Status : Never Karen Flores Rn - 08/11/2018 14:36 EDT Social History (As Of: 08/11/2018 14:44:05 EDT) Tobacco: Smoking Status Never smoker. Used Tobacco, but Quit No. (Last Updated: 10/16/2016 11:53:46 EDT by RUI EMMANUEL, RN) Alcohol: Alcohol Use History No. (Last [...] 10/16/2016 11:55:14 EDT by RUI EMMANUEL, RN) Infectious Disease History Infectious Disease History : Chicken pox/Shingles, Measles Isolation Needed : Standard Fever/Chills Last 48 Hours : No Travel To Regions with Travel Advisories : No Travel Outside [place] Within Last 30 Days : No Contact With Traveler to [facility] Region : No Tuberculosis Symptoms : None Karen Flores Rn - 08/11/2018 14:36 EDT Anesthesia/Transfusion History Family History of Anesthesia Reaction : Prior transfusion without reaction Transfusion History : Prior anesthesia without reaction Family History of Anesthesia Reaction : None Karen Flores Rn - 08/11/2018 14:36 EDT Advance Directive Patient has Advance Directive *Q : Yes, Advance Directive not with the patient Advance Directive Type : Living will Copy Advance Directive Verified/on Chart : No Karen Flores Rn - 08/11/2018 14:36 EDT Psychosocial History Do You Have a History of the Following? : Patient denies history Currently in Unsafe Situation : No Tried to Harm Yourself in the Past? : No Thoughts of Harming/Killing Yourself : No Karen Flores Rn - 08/11/2018 14:36 EDT Teaching/Learning Assessment Barriers To Learning : None evident Individuals Taught : Patient, Child Readiness to Learn : Cooperative Readiness to Learn : Explanation, Printed materials Learning Style Preferences Patient : Printed materials, Verbal explanation Learning Style Preferences Family : Printed materials, Verbal explanation Karen Flores Rn - 08/11/2018 14:36 EDT Education Topics, Periop Preadmission Perioperative Education Grid Arrival Time/Place : Verbalizes understanding CHG Preoperative Bathing/Cloths : Verbalizes understanding NPO Status/Directions : Verbalizes understanding Preprocedure Preparations : Verbalizes understanding Responsible Adult : Verbalizes understanding Take/Hold Medications Pre-Procedure : Verbalizes understanding Karen Flores Rn - 08/11/2018 14:36 EDT General Info Preferred Name : Sy Arrived From : Home Mode of Arrival on Unit : Ambulatory Legal Guardian : Son Support Person/Patient Pharmacogeneticist : Yes Support Person/Pt Rep Name : Sam Rust Yen Support Person/Pt Rep Contact Information : son (Sam) [phone] (Nancy Rust [phone] Want Family/Rep/Phys Notified of Admit : No Emergency Contact #1 : Sy Emergency Contact #1 Emergency Contact #1 Relationship : son Emergency Contact #2 : . Emergency Contact #2 Phone Number : . Emergency Contact #2 Relationship : . Information Obtained From : Patient Primary Language : Frisian Preferred Communication Mode : Verbal Communication Barrier : None Karen Flores Rn - 08/11/2018 14:36 EDT Jay Scale Jay Sensory Perception : No impairment Jay Moisture : Rarely moist Jay Activity : Walks occasionally Jay Mobility : Slightly limited Jay Nutrition : Adequate Jay Friction and Shear : No apparent problem Jay Score : 20 Karen Flores Rn - 08/11/2018 14:36 EDT Sleep Apnea Risk Assmt BiPAP/CPAP Ordered for Home Use : Yes Hx of Obstructive Sleep Apnea Diagnosis : Yes BiPAP/CPAP Used at Home : Yes Age over 50 Years Old : Yes Gender Male : No Karen Flores Rn - 08/11/2018 14:36 EDT Electronically signed by Maureen Cornejo Conversion Advertising Production Manager Cerner at 06/16/2022 8:31 PM CDT documented in this encounter Plan of Treatment Not on file documented as of this encounter Visit Diagnoses Not on filedocumented in this encounter
--- OUTSIDE RECORDS SUMMARY | 2024-08-09 13:25 | XMS_ITS | Encounter Summary ---
Author Organization [employer] Address [address] [place] [address] Care Team Providers Care Crisis Specialist Name Role Phone Unavailable Primary Care Provider Unavailabl e Encounter Details Date Type Department Care Team (Late st Contact Info) Description 06/16/2019 Transcribed Document [facility] [place] Family Medicine [facility] [place] [address] ProviderMariela MD [facility] [place] [address] Social History Tobacco Use [...] 9:25 PM CDT Pain Assessment Entered On: 06/26/2019 10:50 EDT Performed On: 06/26/2019 10:30 EDT by Anika Clark RN Intervention Information: acetaminophen Performed by Francine Chacon RN on 06/26/2019 09:30:00 EDT acetaminophen,650mg Oral,Other (See Comment) Pain Assessment Pain Assessment : Follow-up assessment Pain Scale Goal : 3 Pain Scale Used : 0-10 Scale Anika Clark RN - 06/26/2019 10:50 EDT Pain Scale Intensity : 3 Anika Clark RN - 06/26/2019 10:50 EDT Image 4 - Images currently included in the form version of this document have not been included in the text rendition version of the form. documented in this encounter Plan of Treatment Not on file documented as of this encounter Visit Diagnoses Not on filedocumented in this encounter
--- OUTSIDE RECORDS SUMMARY | 2024-08-09 13:25 | XMS_ITS | Encounter Summary ---
Author Organization [employer] Address [address] [place] [address] Care Team Providers Care Gambreler Name Role Phone Unavailable Primary Care Provider Unavailabl e Encounter Details Date Type Department Care Team (Late st Contact Info) Description 06/28/2019 Transcribed Document [facility] [place] Family Medicine [address] [place] [address] ProviderMariela MD [address] [place] [phone] Social History Tobacco Use Types Packs/Day Years [...] Conversion Note - Historical ProviderMD - 06/28/2019 2:00 AM CDT Nurse'S Companion Details Entered On: 06/28/2019 6:17 EDT Performed On: 06/28/2019 2:00 EDT by Bibi Gallagher RN Order Details Order Detail : N/A IV Order Detail : 1 Oxygen Order Detail : 1 Nurse Collect Order Detail : 1 Lift/Transfer : Moderate assist Central Line Order Detail : Yes Room Service : Appropriate Arterial Line : No Bibi Gallagher RN - 06/28/2019 6:17 EDT documented in this encounter Plan of Treatment Not on file documented as of this encounter Visit Diagnoses Not on filedocumented in this encounter
--- OUTSIDE RECORDS SUMMARY | 2024-08-09 13:25 | XMS_ITS | Encounter Summary ---
Author Organization [employer] Address [address] [place] [address] Care Team Providers Care Caterpillar Mechanic Name Role Phone Unavailable Primary Care Provider Unavailabl e Encounter Details Date Type Department Care Team (Late st Contact Info) Description 08/22/2018 Transcribed Document [facility] [place] [facility] [place] [address] ProviderMariela MD [facility] [place] [address] Social History Tobacco Use Types [...] Historical ProviderMD - 08/22/2018 9:14 AM CDT [facility]MI[facility] Main OR PreOp Summary Primary Physician: NIMO EPPS MD-ORT Finalized Date/Time: 08/24/18 10:27:11 Pt. Name: SOFIA GILL Eufemia Dobbs/Sex: 1940 Female Med Rec #: [id number] Physician: NIMO EPPS MD-ORT Financial #: [id number] Pt. Type: I Room/Bed: 504/1 Admit/Disch: 08/22/18 07:12:00 - Institution: [facility] [place] PreOp Case Times Entry 1 In Preop 08/22/18 06:15:00 Ready for Holding n/a Room Patient Ready for 08/22/18 08:05:00 Surgery Patient Out of Preop 08/22/18 08:37:00 Patient Out of n/a Holding Room Last Modified By: THIERRY GOODRICH RN 08/24/18 10:27:08 SJE PreOp Case Times Audit 08/24/18 10:27:08 Audio Visual Aide: HORACIO Modifier: HORACIO <+> 1 Patient Out of Preop Finalized By: THIERRY GOODRICH, RN Document Signatures Signed By: THIERRY GOODRICH RN 08/24/18 10:27 Electronically signed by Chantal [facility] Conversion Batch Blender Cerner at 06/16/2022 8:17 PM CDT documented in this encounter Plan of Treatment Not on file documented as of this encounter Visit Diagnoses Not on filedocumented in this encounter
--- OUTSIDE RECORDS SUMMARY | 2024-08-09 13:25 | XMS_ITS | Encounter Summary ---
Author Organization [employer] Address [address] [place] [address] Care Team Providers Care Probation Agent Name Role Phone Unavailable Primary Care Provider Unavailabl e Encounter Details Date Type Department Care Team (Late st Contact Info) Description 08/22/2018 Transcribed Document [facility] [place] Family Medicine [facility] [place] [address] ProviderMariela MD [facility] [place] [address] Social History Tobacco Use Types [...] Historical ProviderMD - 08/22/2018 12:12 PM CDT Evaluation, Occupational Therapy Entered On: 08/22/2018 13:44 EDT Performed On: 08/22/2018 13:12 EDT by EDIN DRAKE, OTR/L General Information, OT Visit Type, OT : Initial evaluation Patient Orders : Order Date Order Ordering 08/22/2018 12:14 OT Evaluation and Treatment Ordered By: NIMO SAENZ MD-ORAmina 08/22/2018 12:14 OT Treatment Instructions Ordered By: NIMO SAENZ MD-ORAmina Active Diagnoses : No Qualifying Diagnoses Therapy Diagnosis, OT : aftercare following joint replacement surgery R TKA Admission Date : 08/22/2018 04:51 Assisted by, OT : Physical Therapist Personal Devices : Personal Devices No Devices Recorded Assistive Devices : Assistive Devices Wheelchair Precautions in Place : Fall prevention measures, high risk General Information Comment, OT : pt is a 78 y.o. female admitted s/p R TKA performed by Dr. Saenz and is WBAT. pt is no flexion x48 hours. EDIN DRAKE OTR/Bartolo - 08/22/2018 13:33 EDT General Status Patient Received Status : Supine in bed, Bed alarm activated, Other: KI RLE, drain, scds, polar care, O2, sons present Treatment Start Time : 08/22/2018 12:55 EDT Patient Left Status : Up in chair, Chair alarm activated, RN/PCT informed, Family/Visitors at bedside, All needs met and within reach, Other: KI RLE, drain, scds, sons, polar care RN/PCT Informed Comment : RN ok'd to tx, ID and verified Treatment End Time : 08/22/2018 13:12 EDT Treatment Time : 17 Minute(s) EDIN DRAKE OTR/Bartolo - 08/22/2018 13:33 EDT History and Environment, OT Living Situation, Therapy : Home Patient Lives With : Alone Persons Assisting Patient at Home : Child/Children Professional Skilled Services : None Persons Providing Information : Patient Home Equipment, Therapy : Brace, Commode, Shower Equipment, Walker, Wheelchair Walker : Walker, front wheel Wheelchair : Wheelchair, standard Home Setup : Two story Bedroom Location : Main level Bathroom #1 Location : Main level Stairs : Yes Stair Location(s) : Inside, Outside Stairs Inside Comment : can stay on main level Outside Stairs, Number of Steps : 3 Railing Outside : Yes Outside Railing Position : Right, going up EDIN DRAKE OTR/Bartolo - 08/22/2018 13:33 EDT Prior LOF Bathing, OT : Independent Prior LOF Bed Mobility : Independent Prior LOF Upper Body Dressing, OT : Independent Prior LOF Lower Body Dressing, OT : Independent Prior LOF Toileting : Independent Prior LOF Transfer : Independent Prior LOF Grooming, OT : Independent Prior LOF for IADLs, OT : Independent EDIN DRAKE OTR/Bartolo - 08/22/2018 13:33 EDT Upper Extremity Upper Extremity Comment : not formally assessed, appears grossly WFL, h/o L shoulder surgery EDIN DRAKE OTR/Bartolo - 08/22/2018 13:33 EDT Self Care/Home Management, OT Lower Body Dressing Assist Level, OT : Assist, maximal Bed/Chair/WC Transfer Assist Level : Assist, moderate Bed/Chair/WC Transfer Device : Belt, gait, Walker, front wheel Bed/Chair/WC Device Comment : mod assist x2 person stand pivot bed to chair, EKATERINA roth RLE, has a brace for LLE she uses at home, pt having much difficulty with transfer EDIN DRAKE OTR/Bartolo - 08/22/2018 13:33 EDT Mobility Device/Prosthesis/Wt Bearing Weight Bearing Status Maintained : Yes Weight Bearing Status : As tolerated Functional Mobility Device : Gait belt, Walker, front wheel Functional Mobility with Brace/Splint : Yes Mobility Device/Prosthesis/Wt Bearing Cmnt : KI AAT x48 hours no knee flexion EDIN DRAKE OTR/Bartolo - 08/22/2018 13:33 EDT Functional Mobility Mobility Grid Supine to Sit : Rehab Moderate assistance Sit to Stand : Rehab Moderate assistance (Comment: x2 [EDIN DRAKE OTR/Bartolo 08/22/2018 13:33 EDT] ) Bed to Chair : Rehab Moderate assistance (Comment: x2 [EDIN DRAKE OTR/Bartolo 08/22/2018 13:33 EDT] ) Stand to Sit : Rehab Moderate assistance (Comment: x2 [EDIN DRAKE OTR/Bartolo 08/22/2018 13:33 EDT] ) EDIN DRAKE OTR/L 08/22/2018 13:33 EDT Functional MobilityComment : mod/max assist x2 person stand pivot bed to chair using rw and gait belt, R EKATERINA roth, pt very drowsy and having much difficulty with transfers. has h/o multiple surgeries to L knee and also wears a LLE brace EDIN DRAKE OTR/Bartolo - 08/22/2018 13:33 EDT AM PAC Daily Activity Putting On/Taking Off Lower Body Clothes : A lot Bathing (Washing, Rinsing, Drying) : A lot Toileting Includes Toilet, Bedpan, Urinal : A lot Putting On/Taking Off Upper Clothing : None Taking Care of Grooming : None Eating Meals : None AM-PAC Daily Activity Raw Score : 18 EDIN DRAKE OTR/Bartolo - 08/22/2018 13:33 EDT Image 3 - Images currently included in the form version of this document have not been included in the text rendition version of the form. Activity Tolerance, OT Activity Comment : pt very drowsy , impaired during eval EDIN DRAKE OTR/Bartolo - 08/22/2018 13:33 EDT Neurological/Sensory Overall Sensory Response : Intact EDIN DRAKE OTR/Bartolo - 08/22/2018 13:33 EDT Cognition Assessment, OT Orientation : Oriented x 4 Cognition Assessment Comment : pt still quite drowsy during eval having difficulty following instruction at times EDIN DRAKE OTR/Bartolo - 08/22/2018 13:33 EDT Education OT Occupational Therapy Education Grid Activity of Daily Living Training : Returns demonstration, Needs further teaching Functional Mobility Training : Returns demonstration, Needs further teaching Home Safety : Needs further teaching EDIN DRAKE OTR/Bartolo - 08/22/2018 13:33 EDT Indication Assessment, OT Occupational Therapy Indicated : Yes Problem List, OT : Impaired, activities daily living, Impaired functional mobility, Impaired, joint mobility, Impaired, transfers Potential Barriers, OT : Acuity of illness, Pain Rehabilitation Potential, OT : Good EDIN DRAKE OTR/Bartolo - 08/22/2018 13:33 EDT Plan of Care, OT OT Tx Plan/Goals Established w Patient : Yes OT Frequency Rehab : Other: 3-5x/week Other OT Treatment Provided This Date : ADL OT Duration Rehab : Seven Days OT Treatments Planned : Activities of daily living, Caregiver training, Functional mobility training, Safety education, Therapeutic activities, Therapeutic exercises EDIN DRAKE OTR/Bartolo - 08/22/2018 13:33 EDT Correction Goals, OT Other LTG Grid Goal #1 Goal #2 Goal #3 Goal : pt to perform LB ADL task min assist using AD PRN pt to perform functional ADL transfer min assist at rw level pt /caregiver to verbalize understanding of home safety /car transfer handout Date to Meet : 08/29/2018 EDT 08/29/2018 EDT 08/29/2018 EDT Goal Status : Initial goal Initial goal Initial goal EDIN DRAKE OTR/Bartolo - 08/22/2018 13:33 EDT EDIN DRAKE OTR/Bartolo - 08/22/2018 13:33 EDT EDIN DRAKE OTR/Bartolo - 08/22/2018 13:33 EDT Treatment Note Subjective Comment : pt agrees to tx Additional Objective Information : eval 8 minutes ADL 9 minutes Assessment : pt will benefit from skilled OT services while inpt for safe return home to PLOF s/p R TKA, pt may need rehab based on current eval Plan for Treatment : skilled OT 3-5x/week for 7 days EDIN DRAKE OTR/Bartolo - 08/22/2018 13:33 EDT Pain Assessment Pain Scaled Used : 0-10 Pain scale Pain Score Pre-Intervention : 8 Location : Knee, right Pain Comment : RN notified EDIN DRAKE OTR/Bartolo - 08/22/2018 13:33 EDT Image 1 - Images currently included in the form version of this document have not been included in the text rendition version of the form. [facility] OT Charges OT Selfcare/Hm Mgmt Ea 15 Min : 1 OT Eval Moderate Complexity : 1 EDIN DRAKE OTR/Bartolo - 08/22/2018 13:33 EDT Electronically signed by Maureen Cornejo Conversion Environmental Engineering Manager Cerner at 06/16/2022 8:09 PM CDT documented in this encounter Plan of Treatment Not on file documented as of this encounter Visit Diagnoses Not on filedocumented in this encounter
--- OUTSIDE RECORDS SUMMARY | 2024-08-09 13:25 | XMS_ITS | Encounter Summary ---
Author Organization [employer] Address [address] [place] [address] Care Team Providers Care Bottle House Cleaners Supervisor Name Role Phone Unavailable Primary Care Provider Unavailabl e Encounter Details Date Type Department Care Team (Late st Contact Info) Description 06/29/2019 Transcribed Document [facility] [place] Counts include 234 beds at the [facility] [place] [address] ProviderMariela MD [address] [place] [phone] Social History Tobacco Use Types Packs/Day Years [...] Conversion Note - Historical ProviderMD - 06/29/2019 8:26 AM CDT Care Management Assessment/Plan Entered On: 06/29/2019 8:30 EDT Performed On: 06/29/2019 8:26 EDT by YOANNA ARAUJO RN Care Management Note Care Management Note : Yoanna Araujo 06/29/[id number] received fax from [facility] with approval for extended ltac coverage with next clinical review due on 07/12/2019. Auth#[id number]. Will continue to follow for anticipated discharge needs. Care Management Note Report : YOANNA ARAUJO RN - 06/28/19 08:35:06 Yoanna Araujo 06/28/[id number] Faxed clinical review to [facility] at to request approval for extended Ltac services. Auth#[id number]. Pending Approval. Documentation Status Complete : Yes YOANNA ARAUJO RN - 06/29/2019 8:26 EDT documented in this encounter Plan of Treatment Not on file documented as of this encounter Visit Diagnoses Not on filedocumented in this encounter
--- OUTSIDE RECORDS SUMMARY | 2024-08-09 13:25 | XMS_ITS | Encounter Summary ---
Author Organization [employer] Address [address] [place] [address] Care Team Providers Care Boom Truck Driver Name Role Phone Unavailable Primary Care Provider Unavailabl e Encounter Details Date Type Department Care Team (Late st Contact Info) Description 06/28/2019 Transcribed Document [facility] [place] Family Medicine [address] [place] [address] ProviderMariela MD [address] [place] [address] Social History Tobacco Use Types Packs/Day Years [...] Conversion Note - Historical ProviderMD - 06/28/2019 9:26 AM CDT Interdisciplinary Rounds Entered On: 06/28/2019 9:30 EDT Performed On: 06/28/2019 9:26 EDT by OSKAR MARTÍNEZ, PT Interdisciplinary Rounds Working Summary PT Interdisciplinary Rounds Note : Patient evaluated 06/26; wearing orthotic/brace left hip to ankle at all times, WBAT. Mod assist x 2 to EOB and mod assist x 2 sit to stand with Rwx, transfer to chair. OSKAR MARTÍNEZ, PT - 06/28/2019 9:26 EDT documented in this encounter Plan of Treatment Not on file documented as of this encounter Visit Diagnoses Not on filedocumented in this encounter
--- OUTSIDE RECORDS SUMMARY | 2024-08-09 13:25 | XMS_ITS | Encounter Summary ---
Author Organization [employer] Address [address] [place] [address] Care Team Providers Care Engineer Name Role Phone Unavailable Primary Care Provider Unavailabl e Encounter Details Date Type Department Care Team (Late st Contact Info) Description 07/13/2019 Transcribed Document [facility] [address] [place] [address] Shawanda Barahona MD [address] [place], [place] [id number] Social History Tobacco Use Types Packs/Day Years [...] Conversion Note - Shawanda Barahona MD - 07/13/2019 12:24 PM EDT Patient: SOFIA GILL Age: 79 [...] Temp 97.6 (JULY 12 07:00) 97.6 (JULY 12:00) 98.4 (JULY 11:45) Mon HR 68 (JULY 12 07:00) 68 (JULY 12 07:00) 91 (JULY 11:00) Resp Rate 18 (JULY 12 07:00) 15 (JULY 11 23:00) 18 (JULY 12:00) SBP H 148 (JULY 12 07:00) 108 (JULY 11:00) H 148 (JULY 12 07:00) DBP L 58 (JULY 12 07:00) L 42 (JULY 11:00) L 58 (JULY 12 07:00) MAP 61 (JULY 11 15:45) 61 (JULY 11:45) 61 (JULY 11:45) SpO2 99 (JULY 12 07:00) 96 (JULY 11:45) 100 (JULY 11:00) Physical [...] (JULY 06) L 2.9 (JULY 05) Micro: [place]: 06/15 [facility] Blood cultures positive for group B strep [...]
--- OUTSIDE RECORDS SUMMARY | 2024-08-09 13:25 | XMS_ITS | Encounter Summary ---
Author Organization [employer] Address [address] [place] [address] Care Team Providers Care Clinical Trial Specialist Name Role Phone Unavailable Primary Care Provider Unavailabl e Encounter Details Date Type Department Care Team (Late st Contact Info) Description 06/17/2019 Transcribed Document [facility] [place] [facility] [place] [address] ProviderMariela MD [address] [place], [place] [phone] Social History Tobacco Use Types Packs/Day Years [...] Conversion Note - Historical ProviderMD - 06/17/2019 2:00 AM CDT Medical Surgical Tech Details Entered On: 06/17/2019 2:07 EDT Performed On: 06/17/2019 2:00 EDT by Svitlana Ugarte, RN Order Details Transport Mode Order Detail : Bed (including specialty) Isolation Precautions Order Detail : Contact precautions Order Detail : N/A IV Order Detail : 1 Oxygen Order Detail : 0 Nurse Collect Order Detail : 0 Lift/Transfer : Moderate assist Central Line Order Detail : No Room Service : Appropriate Arterial Line : No Svitlana Ugarte, EDDIE - 06/17/2019 2:06 EDT documented in this encounter Plan of Treatment Not on file documented as of this encounter Visit Diagnoses Not on filedocumented in this encounter
--- OUTSIDE RECORDS SUMMARY | 2024-08-09 13:25 | XMS_ITS | Encounter Summary ---
Author Organization [employer] Address [address] [place] [address] Care Team Providers Care Hall Director Name Role Phone Unavailable Primary Care Provider Unavailabl e Encounter Details Date Type Department Care Team (Late st Contact Info) Description 06/16/2019 Transcribed Document [facility] [place] [address] [place] [address] ProviderMariela MD [address] [place] [address] Social History Tobacco Use Types Packs/Day Years [...] Conversion Note - Historical ProviderMD - 06/16/2019 9:08 PM CDT Meds to Bed Enrollment Entered On: 06/19/2019 12:37 EDT Performed On: 06/16/2019 21:08 EDT by Dylan Alvarez, FINISHER HAND LEAD Meds to Bed Enrollment Patient Enrollment Decision: : No/do not enroll in meds to bed program Reason for Declining Meds to Bed Program: : Other: NA Dylan Alvarez FINISHER HAND LEAD - 06/19/2019 12:37 EDT documented in this encounter Plan of Treatment Not on file documented as of this encounter Visit Diagnoses Not on filedocumented in this encounter
--- OUTSIDE RECORDS SUMMARY | 2024-08-09 13:25 | XMS_ITS | Encounter Summary ---
Author Organization [employer] Address [address] [place] [address] Care Team Providers Care Coal Shoveler Name Role Phone Unavailable Primary Care Provider Unavailabl e Encounter Details Date Type Department Care Team (Late st Contact Info) Description 06/28/2019 Transcribed Document [facility] [address] [place] [address] ProviderMariela MD [address] [place] [id number] Social History Tobacco Use Types Packs/Day Years [...] Note - Historical ProviderMD - 06/28/2019 5:00 AM CDT Chart Check - Review Order Profile Entered On: 06/28/2019 6:17 EDT Performed On: 06/28/2019 5:00 EDT by Bibi Gallagher RN Chart Check Powerplans Initiated/Discontinued as Appropriate : Yes All Active Orders Reviewed : Yes Bibi Gallagher, EDDIE - 06/28/2019 6:17 EDT Electronically signed by Chantal mandeep Conversion Public Health Representative Cerner at 06/16/2022 8:16 PM CDT documented in this encounter Plan of Treatment Not on file documented as of this encounter Visit Diagnoses Not on filedocumented in this encounter
--- OUTSIDE RECORDS SUMMARY | 2024-08-09 13:25 | XMS_ITS | Encounter Summary ---
Author Organization [employer] Address [address] [place] [address] Care Team Providers Care Feed House Supervisor Name Role Phone Unavailable Primary Care Provider Unavailabl e Encounter Details Date Type Department Care Team (Late st Contact Info) Description 07/13/2019 Transcribed Document [facility] [place] [address] [place] [address] ProviderMariela MD [address] [place] [address] Social History Tobacco Use Types Packs/Day Years [...] Historical ProviderMD - 07/13/2019 9:00 PM CDT Patch Check Entered On: 07/13/2019 23:29 EDT Performed On: 07/13/2019 21:00 EDT by Georgina Olivo RN Patch Check Patch Check Result : No Patch Check - Type of Patch : No Patch Found Georgina Olivo RN - 07/13/2019 23:28 EDT documented in this encounter Plan of Treatment Not on file documented as of this encounter Visit Diagnoses Not on filedocumented in this encounter
--- OUTSIDE RECORDS SUMMARY | 2024-08-09 13:25 | XMS_ITS | Encounter Summary ---
Author Organization [employer] Address [address] [place] [address] Care Team Providers Care Fur Ironer Name Role Phone Unavailable Primary Care Provider Unavailabl e Encounter Details Date Type Department Care Team (Late st Contact Info) Description 06/28/2019 Transcribed Document [facility] [place] [facility] [address] [place] [address] ProviderMariela MD [address] [place] [address] Social History Tobacco Use Types Packs/Day Years [...] Conversion Note - Historical ProviderMD - 06/28/2019 11:22 AM CDT Interdisciplinary Rounds Entered On: 06/28/2019 11:23 EDT Performed On: 06/28/2019 11:22 EDT by PATTY OWENS OTR/Bartolo Interdisciplinary Rounds Working Summary OT Interdisciplinary Rounds Note : OT evaled pt 06/26. Pt motivated and participating. MinAx2 bed to chair. PATTY OWENS OTR/Bartolo - 06/28/2019 11:22 EDT documented in this encounter Plan of Treatment Not on file documented as of this encounter Visit Diagnoses Not on filedocumented in this encounter
--- OUTSIDE RECORDS SUMMARY | 2024-08-09 13:25 | XMS_ITS | Encounter Summary ---
Author Organization [employer] Address [address] [place] [address] Care Team Providers Care Marketing Community Liaison Name Role Phone Unavailable Primary Care Provider Unavailabl e Encounter Details Date Type Department Care Team (Late st Contact Info) Description 08/22/2018 Transcribed Document [facility] [place] [facility] [place] [address] ProviderMariela MD [facility] [place] [address] Social History Tobacco Use Types [...] Cerner Conversion Note - Historical Provider, - 08/22/2018 12:33 PM CDT Admission History, Adult Entered On: 08/22/2018 12:34 EDT Performed On: 08/22/2018 12:33 EDT by Vianca Morgan RN Advance Directive Patient has Advance Directive *Q : Yes, Advance Directive not with the patient Advance Directive Type : Living will Copy Advance Directive Verified/on Chart : No Vianca Morgan RN - 08/22/2018 12:33 EDT Anesthesia/Transfusion History Family History of Anesthesia Reaction : Prior transfusion without reaction Transfusion History : Prior anesthesia without reaction Family History of Anesthesia Reaction : None Vianca Morgan RN - 08/22/2018 12:33 EDT Anticipated Discharge Needs Discharge To, Anticipated : Home Vianca Morgan RN - 08/22/2018 12:33 EDT Education Topics, Admission Orientation DCP GENERIC [...] Verbalizes understanding Visiting Policy : Verbalizes understanding Vianca Morgan RN - 08/22/2018 12:33 EDT Functional Assessment Living Situation : Home Patient Lives With : Alone Persons Assisting Patient at Home : Child/Children Current Daily Living Assistance : None Sensory Deficits : None Mobility Assistance Prior to Admission : Partial assistance FAY Hx Falls Immediate/Within 3 Months : Yes Current Home Treatments : CPAP Home Equipment : Walker Professional Skilled Services : None Special Services and Community Resources : None Vianca Morgan RN - 08/22/2018 12:33 EDT General Info Preferred Name : Sy Arrived From : Home Mode of Arrival on Unit : Wheelchair Legal Guardian : Son Support Person/Patient Casing In Line Setter : Yes Support Person/Pt Rep Name : Sam Rust Yne Support Person/Pt Rep Contact Information : zeinab Matthew) [phone] (Nancy Rust [phone] Want Family/Rep/Phys Notified of Admit : No Emergency Contact #1 : Sy Emergency Contact #1 Emergency Contact #1 Relationship : son Emergency Contact #2 : . Emergency Contact #2 Phone Number : . Emergency Contact #2 Relationship : . Information Obtained From : Patient Primary Language : Ethiopian Preferred Communication Mode : Verbal Communication Barrier : None Currently Lactating : No Status : N/A Vianca Morgan RN - 08/22/2018 12:33 EDT Fall Risk Scales ABCs Fall Injury Risk Identification : Surgery ABC Fall Injury Risk : Moderate to high injury risk Injury Moderate to High Risk Interventions : Bed alarm on, Chair alarm on, High Risk for Fall Injury sign in place per policy, Specialty low bed, Supervise toileting as indicated, Transport methods appropriate to patient, Wrist band (fall risk) on per policy FAY Hx Falls Immediate/Within 3 Months : Yes Fay Secondary Diagnosis : Yes FAY Use of Ambulatory Aid : Bed rest/Nurse assist FAY IV Therapy or IV Access : Yes Fay Gait/Transferring : Weak Fay Mental Status : Oriented to own ability Fay Fall Risk Score : 70 FAY Fall Scale Risk Level : 46 or > High Risk [place] Fall Interventions : Adequate lighting, Assistive devices within reach, Bed in low position, Call device within reach, Fall prevention handout/education per facility policy, Frequent orientation to call device, Frequent orientation to surroundings, Hourly comfort/safety rounds, Non-slip footwear, Personal items within reach, Reinforced to call for assistance before getting out of bed, Room free of clutter/spills, Upper side-rails up, Wheels locked, Wires/Cords secured Vianca Morgan RN - 08/22/2018 12:33 EDT Fall Risk Education Grid Alarms : Verbalizes understanding Assistive Equipment Use : Verbalizes understanding Bed Height/Stabilization : Verbalizes understanding Call light use : Verbalizes understanding Door Open : Verbalizes understanding Environmental Management : Verbalizes understanding Eyeglasses Use : Verbalizes understanding Fall Community Resources : Verbalizes understanding Fall Contract/Letter : Verbalizes understanding Fall Prevention in the Home : Verbalizes understanding Fall Prevention Protocol : Verbalizes understanding Hearing Aid Use : Verbalizes understanding Home Risk Assessment : Verbalizes understanding Need Constant Observation : Verbalizes understanding Night Light Use : [...] Verbalizes understanding Wheelchair Safety : Verbalizes understanding Vianca Morgan RN - 08/22/2018 12:33 EDT Barriers to Learning : None evident Readiness to Learn : Cooperative Highest Level of Education : None Teaching Method : Demonstration Learning Style Preferences Family : Printed materials, Verbal explanation Learning Style Preferences Patient : Printed materials, Verbal explanation Fall Risk Scale Calc Temp : 1 Vianca Morgan RN - 08/22/2018 12:33 EDT Health Histories Smoking Status : Never (less than 100 in lifetime; none in last 30 days) Smokeless Tobacco Status : Never Vianca Morgan RN - 08/22/2018 12:33 EDT Social History (As Of: 08/22/2018 12:34:54 EDT) Tobacco: Smoking Status Never smoker. Used [...] Source : Stated Height Entry Format : [place] Height, Feet : 4 ft(Converted to: 122 cm, 48 Inch) Height, Inches : 11.5 Inch(Converted to: 0 ft 12 Inch, 29.21 cm) Clinical Height : 151.13 cm Weight Source : Standing scale Weight Entry Format : [place] Clinical Dosing Weight : 97.73 kg Weight, Pounds : 215 lb Body Surface Area (BSA) : 1.91 m2 Body Mass Index : 42.8 kg/m2 (>HHI) [place] Body Weight : 44 kg Vianca Morgan RN - 08/22/2018 12:33 EDT Infectious Disease History Infectious Disease History : Chicken pox/Shingles, Measles Active Surveillance Screen Assessment : Patient does not meet any of above criteria Active Surveillance Screen Negative : Yes Isolation Needed : Standard Fever/Chills Last 48 Hours : No Travel To Regions with Travel Advisories : No Travel Outside [place] Within Last 30 Days : No Contact With Traveler to Advisory Region : No Exposure to Contagious Illness : No Tuberculosis Symptoms : None Vianca Morgan RN - 08/22/2018 12:33 EDT Tetanus Immunization Status Previous Tetanus Immunizations : No qualifying data available. Vianca Morgan RN - 08/22/2018 12:33 EDT Influenza Vaccine Asmt, Adult Previous Vaccines from Immunization Schedule : No qualifying data available. Influenza Immunization, Current Season : Outside of influenza season Vianca Morgan RN - 08/22/2018 12:33 EDT Pneumococcal Vaccine Previous Vaccines from Immunization Schedule : No qualifying data available. Pneumonia Immunization Received : Yes Vianca Morgan RN - 08/22/2018 12:33 EDT Order Details Isolation Precautions Order Detail : Standard Precautions Order Detail : N/A IV Order Detail : 1 Oxygen Order Detail : 1 Nurse Collect Order Detail : 0 Lift/Transfer : Moderate assist Central Line Order Detail : No Room Service : Not Appropriate Arterial Line : No Vianca Morgan RN - 08/22/2018 12:33 EDT Nutrition History Weight Entry Format Nutrition History : [place] Usual Weight, Pounds : 210 lb Clinical Weight Calculated : 95.45 kg Eating Poorly Due to Decreased Appetite : No Unplanned Weight Loss in Past 3-6 Months : No Malnutrition Screening Tool Total(mal) : 0 Malnutrition Screening Tool Risk Level : Patient not at risk Vianca Morgan RN - 08/22/2018 12:33 EDT Psychosocial History Do You Have a History of the Following? : Patient denies history Currently in Unsafe Situation : No Do You Have a Support System? : Yes Tried to Harm Yourself in the Past? : No Thoughts of Harming/Killing Yourself : No Vianca Morgan RN - 08/22/2018 12:33 EDT Sleep Apnea Risk Assmt BiPAP/CPAP Ordered for Home Use : Yes Hx of Obstructive Sleep Apnea Diagnosis : Yes BiPAP/CPAP Used at Home : Yes Age over 50 Years Old : Yes Gender Male : No Vianca Morgan RN - 08/22/2018 12:33 EDT Valuables and Belongings Valuables and Belongings : Clothing, Assistive devices Clothing : Common streetwear Clothing Disposition : With family Assistive Devices From Home : Wheelchair Assistive Device Disposition : With family Vianca Morgan RN - 08/22/2018 12:33 EDT documented in this encounter Plan of Treatment Not on file documented as of this encounter Visit Diagnoses Not on filedocumented in this encounter
--- OUTSIDE RECORDS SUMMARY | 2024-08-09 13:25 | XMS_ITS | Encounter Summary ---
Author Organization [employer] Address [address] [place] [address] Care Team Providers Care Crew Trainer Name Role Phone Unavailable Primary Care Provider Unavailabl e Encounter Details Date Type Department Care Team (Late st Contact Info) Description 08/11/2018 Transcribed Document [facility] [place] [address] [place] [address] ProviderMariela MD [address] [id number] Social History Tobacco Use Types Packs/Day Years [...] Conversion Note - Historical ProviderMD - 08/11/2018 2:59 PM CDT Event Note Entered On: 08/11/2018 14:59 EDT Performed On: 08/11/2018 14:59 EDT by Karen Flores Rn Event Note Description of Event : notified Hawa of patient having latex allergy Karen Flores, Rn - 08/11/2018 14:59 EDT documented in this encounter Plan of Treatment Not on file documented as of this encounter Visit Diagnoses Not on filedocumented in this encounter
--- OUTSIDE RECORDS SUMMARY | 2024-08-09 13:26 | XMS_ITS | Encounter Summary ---
Author Organization [employer] Address [address] [place] [address] Care Team Providers Care Grit Removal Operator Name Role Phone Unavailable Primary Care Provider Unavailabl e Encounter Details Date Type Department Care Team (Late st Contact Info) Description 07/11/2019 Transcribed Document [facility] [address] [place] [address] Shawanda Barahona MD [address] [place] [address] Social History Tobacco Use Types Packs/Day Years [...] Conversion Note - Shawanda Barahona MD - 07/11/2019 3:50 PM EDT Patient: SOFIA GILL Age: 79 [...] no pain in picc line no diarrhea ros see hpi Objective Vitals Signs (last 24 hrs) Last Charted Minimum Maximum Temp 97.5 (JULY 10:00) 97.5 (JULY 10:00) 99.0 (JULY 09:00) Mon HR 74 (JULY 10:00) 74 (JULY 10:00) 99 (JULY 09:00) Resp Rate 18 (JULY 10:00) 16 (JULY 09:00) 18 (JULY 09:) SBP 121 (JULY 10:00) 118 (JULY 09:00) 138 (JULY 09:00) DBP 60 (JULY 10:00) L 50 (JULY 09:00) 79 (JULY 09:00) MAP 74 (JULY 10 07:00) 74 (JULY 10 07:00) 74 (JULY 10:00) SpO2 96 (JULY 10:00) 96 (JULY 10:00) 99 (JULY 09:00) Physical Examination: Gen: Alert, arousable, pleasant HEENT: NC/AT, no ext oral lesions, no scleral icterus RESP:clear regino. GI: nondistended; soft/bs+Ve MS: 2+ edema bilaterally knees, rightknee c/d/i, left knee in brace SKIN: No eruptions, lesions, or rashes, PICC in place NEURO: No focal deficits; walking with walker Labs:Labs (Last four charted values) WBC 7.2 (JULY [...] Cl L 101 (JULY 09) L 99 (JULY [...] 2.9 (JULY 05) L 1.9 (JULY 03) Micro: [facility]: 06/15 [facility] Blood cultures positive for group [...] chronic lifelong oral suppression -watch inflammatory markers esr 54 follow for adverse drug effects; diarrhea, elevated LFT's, fungal superinfection etc documented in this encounter Plan of Treatment Not on file documented as of this encounter Visit Diagnoses Not on filedocumented in this encounter
--- OUTSIDE RECORDS SUMMARY | 2024-08-09 13:26 | XMS_ITS | Encounter Summary ---
Author Organization [employer] Address [address] [place] [address] Care Team Providers Care Head Of Music Name Role Phone Unavailable Primary Care Provider Unavailabl e Encounter Details Date Type Department Care Team (Late st Contact Info) Description 06/18/2019 Transcribed Document [facility] [place] [facility] [address] [place] [address] ProviderMariela MD [address] [place] [address] Social History Tobacco Use Types Packs/Day [...] Cerner Conversion Note - Historical Provider, - 06/18/2019 1:46 PM CDT Patient: SOFIA GILL Age: 79 years Sex: Female : 1940 Associated Diagnoses: None Author: NEWTON SANTANA MD-INF ID Progress Note Referring MD: Dr Dalia Jaffe Evaluating MD: [...] ceftriaxone. She reportedly did follow up with [facility] office. She reportedly had her left [...] ambulation. Due to this she presented to [facility]. There she had a CT of the [...] orthopedic history she was subsequently transferred to [facility] for further evaluation of the left knee. Blood cultures from [facility] with Group B Strep. Since arrival [...] negative nitrites and small leukocyte esterase. Dr Moise also obtained a fluid sample from the [...] allergy she can tolerate cephalexin and ceftriaxone. 06/18/19: afebrile. BP stable. more confused, oriented to place and month but poor memory. pulling out IVs. complains of knee pain. Blood cx + for GBS. Synovial fluid culture with GPC. appetite poor. ROS: confused, no rash or diarrhea per RN. otherwise unobtainable Allergies:Allergies (10) Active Reaction amLODIPine None Documented valdecoxib None Documented Bextra Itching etodolac Itching Latex Itching Mobic Itching Naprosyn Itching penicillin Shortness of breath phentermine unknown reaction sulfa drugs Itching Medications:Medications by Classification Antimicrobials cefTRIAXone + Sodium Chloride 0.9% intravenous solution 50 m - 2 Gram, IV Piggyback, [id number], infuse over 30 Minute(s), Routine clindamycin - 600 mg, IV Piggyback, Inj, Q8H, infuse over 30 Minute(s), Routine Anticoagulant heparin - 5,000 Units, SubCutaneous, Inj, Q8H, Routine Cardiovascular cloNIDine - 0.1 mg, Oral, Tab, [...] TransDermal, Patch, Q3Days, PRN for Nausea/Vomiting, Routine saccharomyces boulardii lyo (Florastor) - 250 mg, Oral, Cap, Daily, Routine Endocrine levothyroxine (Synthroid) - 100 mcg, [...] (fluticasone 50 mcg/inh nasal spray) - 2 [place], Nostrils Both, [place], BID, PRN for Allergies, Routine Pain Meds [...] solutio - 10 mL, IntraArtiCULAR, Inj, 1-Time Physical Examination: Vitals Signs (last 24 hrs) Last Charted Minimum Maximum Temp 98.7 (JUN 17 09:50) 98 (JUN 17 06:00) 98.7 (JUN 16 14:22) Mon HR 95 (JUN 17 09:50) 95 (JUN 16 14:22) 119 (JUN 16 14:58) Resp Rate 16 (JUN 17 09:50) 16 (JUN 16 14:58) 18 (JUN 16 14:22) SBP 115 (JUN 17 09:50) 105 (JUN 16 14:22) 134 (JUN 16 17:50) DBP 89 (JUN 17 09:50) L 48 (JUN 17 06:00) 89 (JUN 17 09:50) MAP 94 (JUN 17 09:50) 59 (JUN 17 06:00) 94 (JUN 17 09:50) SpO2 96 (JUN 17 06:00) 94 (JUN 16 17:50) 99 (JUN 16 14:22) Exam: Gen: Alert, confused. HEENT: NC/AT, PERRLA, EOMI, sclera nonicteric, no conjunctival injection RESP: CTA bilaterally without rhonchi, rales, or wheezes. Nonlabored breathing CV: RRR, loud systolic murmur. GI: BS normoactive in all 4 quadrants, soft, nontender, nondistended : No chou in place MS: to 3+ edema bilaterally knees, both knees are warm to touch. left knee is tender in significantly more edematous than the right knee. SKIN: No eruptions, lesions, or rashes NEURO: A and O x 4, moves all 4 extremities PSYCH: confused Labs:Labs (Last four charted values) WBC H 21.4 (JUN 17) H 21.1 (JUN 16) HB L 10.3 (JUN 17) L 10.0 (JUN 16) HCT L 32.3 (JUN 17) L 31.3 (JUN 16) Plt 266 (JUN 17) 265 (JUN 16) Na L 130 (JUN 17) L 130 (JUN 16) K H 5.3 (JUN 17) H 5.8 (JUN 16) Cl L 97 (JUN 17) L 97 (JUN 16) CO2 24 (JUN 17) 26 (JUN 16) BUN H 50 (JUN 17) H 55 (JUN 16) Cr H 1.51 (JUN 17) H 1.65 (JUN 16) Glu R 87 (JUN 17) 79 (JUN 16) Ca L 8.1 (JUN 17) L 8.0 (JUN 16) Lactic 1.1 (JUN 16) AST H 38 (JUN 16) ALT 29 (JUN 16) ALK P 133 (JUN 16) T Bili 0.5 (JUN 16) PTN L 5.2 (JUN 16) ALB L 2.0 (JUN 16) Micro: [facility]: 06/15 [facility] Blood cultures positive for group B strep and 2/2 bottles SJE: 06/16 fluid aspiration of left knee shows 118,150 white blood cells, GPC 06/16 repeat blood cultures with Group B Strep 06/16 MRSA surveillance culture and pro/pending 06/16 Urine culture in process/pending Rad:No Radiology Results Found TTE negative for endocarditis IMPRESSION: - 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 S/p synovial fluid aspiration on 06/16, 118,000 WBC, many GPC. interestingly with lymphocytic predominance, rather than neutrophilic. - Streptococcus agalactiae bacteremia: cultures positive at OSH, repeats also positive here. TTE ngeative - Left knee cellulitis: improving - Neutrophilic leukocytosis: no improvement - Acute encephalopathy - Sepsis due to above - Acute renal insufficiency vs CKD stage 3. unknown recent baseline - Obesity - Cardiac murmur: pt says chronic. TTE negative for endocarditis - penicillin allergy: tolerated Keflex and Ceftriaxone RECOMMENDATIONS/PLANS: - f/u pending blood cultures and synovial fluid cultures. - repeat blood culture in AM to assess clearance - I called lab to add fungal synovial fluid culture due to lymphocytic predominance on differential - Follow CBC, CMP, CRP. check CK - continue ceftriaxone 2 gm daily - due to persistently positive blood cultures and lack of source control will add IV clindamycin 600 mg q8h - likely to need a prolonged course of IV antibiotics - poor IV access. will likely need PICC vs tunneled line soon but would be ideal to have cultures clear first. - orthopedic surgery following. Will need additional intervention, possibly amputation per Dr Moise. Complex MDM. High risk for further decompensation. Dr Snyder will take over care on Wednesday. Call if any questions. documented in this encounter Plan of Treatment Not on file documented as of this encounter Visit Diagnoses Not on filedocumented in this encounter
--- OUTSIDE RECORDS SUMMARY | 2024-08-09 13:26 | XMS_ITS | Encounter Summary ---
Author Organization [email or web address] Address [address] [place] [address] Care Team Providers Care Card Grader Name Role Phone Unavailable Primary Care Provider Unavailabl e Encounter Details Date Type Department Care Team (Late st Contact Info) Description 07/13/2019 Transcribed Document [facility] [place] Family Medicine [facility] [place] [address] ProviderMariela MD [address] [place] [address] Social History Tobacco Use Types Packs/Day [...] Conversion Note - Historical ProviderMD - 07/13/2019 11:02 AM CDT Care Management Assessment/Plan Entered On: 07/13/2019 11:04 EDT Performed On: 07/13/2019 11:02 EDT by YOANNA ARAUJO RN Care Management Note Care Management Note : Yoanna Araujo 07/13/2019 1100 faxed out referral for placement for patient to [facility] and rehab, [facility] and triology facilities. Awaiting call backs. Care Management Note Report : СВЕТЛАНА WANG - 07/12/19 12:19:17 07/12/[address] [facility] with approval for LTAC services with a request for updated discharge plans and clinical info to support needs if not discharged. Auth#[id number]. Clinical review or discharge summary to be faxed by 07/17/2019. YOANNA ARAUJO RN - 07/12/19 08:39:48 Yoanna Araujo 07/12/2019 0830 - faxed clinical review the [facility] at [phone] to request approval for extended ltac services. Auth#[id number], awaiting approval. YOANNA ARAUJO RN - 06/29/19 [...] health and she has been to the [facility] and [facility] in the past. She has the following equipment at home: wheel chair, walker, cane and shower chair. Her discharge plan is to go to rehab prior to returning home. PCP: Flavia MARQUEZ [address] [place] [address] Elementary Teacher: Dr. Shemar Barger [address] [place] [address] [address] Clemente Del Rio MD - Rheumatology - [address] [place] [address] Preferences: Home Health: [facility]: no preferences DME: [facility] [place] [facility] - [address], [place] [phone] Fdc: [facility] facility: no preferences Will continue to monitor patient for anticipated discharge needs YOANNA ARAUJO RN - 06/29/19 08:30:20 Yoanna Araujo 06/29/2019 0830 received fax from [facility] with approval for extended ltac coverage with next clinical review due on 07/12/2019. Auth#[id number]. Will continue to follow for anticipated discharge needs. YOANNA ARAUJO RN - 06/28/19 08:35:06 Yoanna Araujo 06/28/2019 0830 Faxed clinical review to [facility] at to request approval for extended Ltac services. Auth#[id number]. Pending Approval. Documentation Status Complete : Yes YOANNA ARAUJO RN - 07/13/2019 11:02 EDT documented in this encounter Plan of Treatment Not on file documented as of this encounter Visit Diagnoses Not on filedocumented in this encounter
--- OUTSIDE RECORDS SUMMARY | 2024-08-09 13:26 | XMS_ITS | Encounter Summary ---
Author Organization [employer] Address [address] [place] [address] Care Team Providers Care Paper Cup Machine Operator Name Role Phone Unavailable Primary Care Provider Unavailabl e Encounter Details Date Type Department Care Team (Late st Contact Info) Description 08/20/2020 Transcribed Document [facility] [place] Family Medicine [facility] [place] [address] ProviderMariela MD [address] [place] [address] Social History Tobacco Use Types Packs/Day [...] Cerner Conversion Note - Historical ProviderMD - 08/20/2020 8:53 PM CDT Pain Assessment Entered On: 08/23/2020 23:36 EDT Performed On: 08/23/2020 22:14 EDT by Rayna Carrizales Rn Intervention Information: oxyCODONE Performed by Rayna Carrizales Rn on 08/23/2020 21:14:00 EDT oxyCODONE,15mg Oral,Pain (Moderate 4-6) Pain Assessment Pain Assessment [...] form. Electronically signed by Chantal, Maureen Conversion Boring Machine Set Up Operator Cerner at 06/21/2022 2:04 PM CDT documented in this encounter Plan of Treatment Not on file documented as of this encounter Visit Diagnoses Not on filedocumented in this encounter
--- OUTSIDE RECORDS SUMMARY | 2024-08-09 13:26 | XMS_ITS | Encounter Summary ---
Author Organization [employer] Address [address] [place] [address] Care Team Providers Care Geospatial Imagery Intelligence Analyst Name Role Phone Unavailable Primary Care Provider Unavailabl e Encounter Details Date Type Department Care Team (Late st Contact Info) Description 08/24/2020 Transcribed Document [facility] [place] Family Medicine [facility] [place] [address] ProviderMariela MD [facility] [place] [place] [address] Social History Tobacco Use Types [...] Conversion Note - Historical ProviderMD - 08/24/2020 1:00 PM CDT Pain Assessment Entered On: 08/24/2020 16:21 EDT Performed On: 08/24/2020 14:54 EDT by Didi Villegas RN Intervention Information: acetaminophen Performed by Didi Villegas RN on 08/24/2020 13:54:00 EDT acetaminophen,1000mg Oral Pain Assessment Pain Assessment : Follow-up assessment Pain Scale Goal : 3 Pain Scale Used : 0-10 Scale Didi Villegas RN - 08/24/2020 16:21 EDT Pain Scale Intensity : 2 Didi Villegas RN - 08/24/2020 16:21 EDT Image 4 - Images currently included in the form version of this document have not been included in the text rendition version of the form. documented in this encounter Plan of Treatment Not on file documented as of this encounter Visit Diagnoses Not on filedocumented in this encounter
--- OUTSIDE RECORDS SUMMARY | 2024-08-09 13:26 | XMS_ITS | Encounter Summary ---
Author Organization [employer] Address [address] [place] [address] Care Team Providers Care Medicaid Service Coordinator Name Role Phone Unavailable Primary Care Provider Unavailabl e Encounter Details Date Type Department Care Team (Late st Contact Info) Description 08/20/2020 Transcribed Document [facility] [place] [facility] [place] [address] ProviderMariela MD [address] [place] [address] Social History Tobacco Use Types [...] Conversion Note - Historical ProviderMD - 08/20/2020 2:50 PM CDT Time Out Documentation Entered On: 08/20/2020 14:55 EDT Performed On: 08/20/2020 14:50 EDT by THIERRY GOODRICH, RN Time Out Documentation Time Out Pause Time : 08/20/2020 14:50 EDT All Activity Suspended : Yes Team Verbally Confirms Information : Correct patient identity, Correct side and site are marked, Consent form is present and accurate, Agreement on the procedure to be done, Correct patient position, Relevant images/results properly labeled/appropriately displayed THIERRY GOODRICH, RN - 08/20/2020 14:50 EDT documented in this encounter Plan of Treatment Not on file documented as of this encounter Visit Diagnoses Not on filedocumented in this encounter
--- OUTSIDE RECORDS SUMMARY | 2024-08-09 13:26 | XMS_ITS | Encounter Summary ---
Author Organization [employer] Address [address] [place] [address] Care Team Providers Care Wood Piler Name Role Phone Unavailable Primary Care Provider Unavailabl e Encounter Details Date Type Department Care Team (Late st Contact Info) Description 06/26/2019 Transcribed Document [facility] [place] [facility] [place] [address] ProviderMariela MD [facility] [place] [address] Social History Tobacco Use Types [...] Cerner Conversion Note - Historical Provider, - 06/26/2019 6:33 PM CDT Admission History, Adult Entered On: 06/26/2019 18:40 EDT Performed On: 06/26/2019 18:33 EDT by KASSI WATSON RN Advance Directive Patient has Advance Directive *Q : No, patient refuses Advance Directive information KASSI WATSON RN - 06/26/2019 18:38 EDT Anesthesia/Transfusion History Family History of Anesthesia Reaction : Prior transfusion without reaction Transfusion History : Prior anesthesia without reaction Family History of Anesthesia Reaction : None KASSI WATSON RN - 06/26/2019 18:38 EDT Functional Assessment Living Situation : Home Current Home Treatments : CPAP KASSI WATSON RN - 06/26/2019 18:38 EDT General Info Preferred Name : Sy Legal Guardian : No Support Person/Patient Manager Scheduling : Yes Support Person/Pt Rep Name : Sam Barlow Contact Password : Keily Support Person/Pt Rep Contact Information : son (Sam) [phone] (Nancy Rust [phone] Want Family/Rep/Phys Notified of Admit : No Emergency Contact #1 : Sam Barlow Emergency Contact #1 Emergency Contact #1 Relationship : Son Emergency Contact #2 : Sy Barlow Emergency Contact #2 Emergency Contact #2 Relationship : Son Primary Language : Japanese Preferred Communication Mode : Verbal Communication Barrier : None KASSI WATSON RN - 06/26/2019 18:38 EDT Fall Risk Scales ABCs Fall Injury Risk Identification : Age, Bones, Coagulation ABC Fall Injury Risk : Moderate to high injury risk FAY Hx Falls Immediate/Within 3 Months : No Fay Secondary Diagnosis : Yes FAY Use of Ambulatory Aid : Bed rest/Nurse assist FAY IV Therapy or IV Access : Yes Christel Gait/Transferring : Impaired Fay Mental Status : Oriented to own ability Fay Fall Risk Score : 55 FAY Fall Scale Risk Level : 25-45 Medium Risk [place] Fall Interventions : Adequate lighting, Assistive devices within reach, Bed in low position, Call device within reach, Fall prevention handout/education per facility policy, Frequent orientation to call device, Frequent orientation to surroundings, Hourly comfort/safety rounds, Non-slip footwear, Personal items within reach, Reinforced to call for assistance before getting out of bed, Room free of clutter/spills, Upper side-rails up, Wheels locked, Wires/Cords secured KASSI WATSON RN - 06/26/2019 18:38 EDT Health Histories Smoking Status : Never (less than 100 in lifetime; none in last 30 days) Smokeless Tobacco Status : Never KASIS WATSON RN - 06/26/2019 18:38 EDT Social History (As Of: 06/26/2019 18:40:57 EDT) Tobacco: Smoking Status Never smoker. Used Tobacco, but Quit No. (Last Updated: 10/16/2016 11:53:46 EDT by RUI EMMANUEL, RN) Alcohol: Alcohol Use History No. (Last Updated: 10/16/2016 11:53:51 EDT by RUI EMMANUEL RN) Substance Abuse: Drug Use Hx: No. [...] Updated: 10/16/2016 11:55:14 EDT by RUI EMMANUEL, EDDIE) Height and Weight, Clinical Dosing Clinical Dosing Weight : 98.18 kg Weight, Pounds : 216 lb Weight, Ounces : 0 oz Body Surface Area (BSA) : 1.91 m2 Body Mass Index : 43.7 kg/m2 (>HHI) JESUS MANUEL CABRAL LPN - 06/26/2019 18:42 EDT Height Source : Chart Height Entry Format : [place] Height, Feet : 4 ft(Converted to: 122 cm, 48 Inch) Height, Inches : 11 Inch(Converted to: 0 ft 11 Inch, 27.94 cm) Clinical Height : 149.86 cm Weight Source : Bed scale Weight Entry Format : [place] Far[place] Body Weight : 43 kg KASSI WATSON RN - 06/26/2019 18:38 EDT Infectious Disease History Has the patient ever been tested for COVID-19? : No, Patient stated COVID19 Screening : No Experiencing Infectious Disease Symptoms : No symptoms Physical contact outside [place] in the last 30 days : No Infectious Disease History : Chicken pox/Shingles, Measles Tuberculosis Symptoms : None KASSI WATSON RN - 06/26/2019 18:38 EDT Tetanus Immunization Status Previous Tetanus Immunizations : No qualifying data available. Tetanus Immunization : Unknown KASSI WATSON RN - 06/26/2019 18:38 EDT Influenza Vaccine Asmt, Adult Previous Vaccines from Immunization Schedule : Previous Vaccines and Immunizations influenza virus vaccine, inactivated: 0.5 mL (06/18/19 09:50:00) Influenza Immunization, Current Season : No Inactivated Flu Vaccine Contraindications : No contraindications to inactivated influenza vaccine Transplant Workup/Recent Transplant : No Order for Influenza Vaccine : Declined Vaccination KASSI WATSON RN - 06/26/2019 18:38 EDT Pneumococcal Vaccine Previous Vaccines from Immunization Schedule : Previous Vaccines and Immunizations influenza virus vaccine, inactivated: 0.5 mL (06/18/19 09:50:00) Pneumonia Immunization Received : Yes KASSI WATSON RN - 06/26/2019 18:38 EDT Order Details Order Detail : N/A KASSI WATSON RN - 06/26/2019 18:38 EDT Nutrition History Adaptive Feeding Equipment : Regular Eating Poorly Due to Decreased Appetite : No Unplanned Weight Loss in Past 3-6 Months : No Malnutrition Screening Tool Total(mal) : 0 Malnutrition Screening Tool Risk Level : Patient not at risk KASSI WATSON RN - 06/26/2019 18:38 EDT [place] Suicide Severity Rating Scale (C-SSRS) CSSRS Past Month Wish to be : No CSSRS Past Month Suicidal Thoughts : No CSSRS Lifetime Suicide Behavior : No Suicide Severity Rating Score : 0 Suicide Severity Rating : No Additional Care Required at this time KASSI WATSON RN - 06/26/2019 18:38 EDT Psychosocial History Do You Have a History of the Following? : Patient denies history Currently in Unsafe Situation : No KASSI WATSON RN - 06/26/2019 18:38 EDT Sleep Apnea Risk Assmt BiPAP/CPAP Ordered for Home Use : Yes Hx of Obstructive Sleep Apnea Diagnosis : Yes BiPAP/CPAP Used at Home : Yes Age over 50 Years Old : Yes Gender Male : No KASSI WATSON RN - 06/26/2019 18:38 EDT Valuables and Belongings Valuables and Belongings : Personal devices, Personal items Personal Device Disposition : With patient Personal Devices : Glasses Personal Items : Cell phone Personal Items Disposition : With patient KASSI WATSON RN - 06/26/2019 18:38 EDT Electronically signed by Maureen Cornejo Conversion Certified Low Vision Therapist Cerner at 06/16/2022 8:15 PM CDT documented in this encounter Plan of Treatment Not on file documented as of this encounter Visit Diagnoses Not on filedocumented in this encounter
--- OUTSIDE RECORDS SUMMARY | 2024-08-09 13:26 | XMS_ITS | Encounter Summary ---
Author Organization [employer] Address [address] [place] [address] Care Team Providers Care Infection Control Practitioner Name Role Phone Unavailable Primary Care Provider Unavailabl e Encounter Details Date Type Department Care Team (Late st Contact Info) Description 08/24/2020 Transcribed Document [facility] [place] [facility] [place] [address] ProviderMariela MD [address] [place] [address] Social History Tobacco Use Types Packs/Day [...] Conversion Note - Historical ProviderMD - 08/24/2020 10:00 PM CDT Pain Assessment Entered On: 08/25/2020 0:40 EDT Performed On: 08/24/2020 22:09 EDT by Rayna Carrizales Rn Intervention Information: traMADol Performed by Chinyere Littlejohn RN-PATIENT CARE BEDSIDE NON-EXEMPT on 08/24/2020 21:09:00 EDT traMADol,50mg Oral Pain Assessment Pain Assessment : Follow-up assessment Pain Scale Goal : 3 Pain Scale Used : 0-10 Scale Pain Improved by Intervention : Yes Rayna Carrizales Rn - 08/25/2020 0:40 EDT Pain Scale Intensity : 2 Rayna Carrizales Rn - 08/25/2020 0:40 EDT Image 4 - Images currently included in the form version of this document have not been included in the text rendition version of the form. documented in this encounter Plan of Treatment Not on file documented as of this encounter Visit Diagnoses Not on filedocumented in this encounter
--- OUTSIDE RECORDS SUMMARY | 2024-08-09 13:26 | XMS_ITS | Encounter Summary ---
Author Organization [employer] Address [address] [place] [id number] Care Team Providers Care Rigging Supervisor Name Role Phone Unavailable Primary Care Provider Unavailabl e Encounter Details Date Type Department Care Team (Late st Contact Info) Description 08/20/2020 Transcribed Document [facility] [place] [facility] [place] [address] ProviderMariela MD [facility] [place] [address] Social History Tobacco Use Types [...] Cerner Conversion Note - Historical Provider, - 08/20/2020 4:09 PM CDT [facility] Main OR IntraOp Summary Primary Physician: NIMO EPPS MD-ORT Finalized Date/Time: 08/21/20 10:16:19 Pt. Name: SOFIA BARLOW S /Sex: 1940 Female Med Rec #: [id number] Physician: NIMO EPSP MD-ORT Financial #: [id number] Pt. Type: I Room/Bed: [facility] Admit/Disch: 08/20/20 04:48:00 - Institution: [facility] IntraOp Case Attendance Entry 1 Entry 2 Entry 3 Case Attendee NIMO EPPS Moore, Kelly E, RN Radha Zamora, Manuel WOLF Tech Role Performed Surgeon/Proceduralist, Public Relations Supervisor, First Scrub, First First Time In 08/20/20 15:29:00 08/20/20 15:29:00 08/20/20 15:29:00 Time Out 08/20/20 20:25:00 08/20/20 18:11:00 08/20/20 18:52:00 Procedure Knee Total Joint Knee Total Joint Knee Total Joint Revision, Patella Revision, Patella Revision, Patella Tendon Repair Tendon Repair Tendon Repair Other Attendee Superficial Wound Closed By: Last Modified By: LINDA SAVAGE RN MARX, CONNIE, LINDA FRY, EDDIE 08/20/20 20:29:47 08/20/20 20:29:47 08/20/20 20:29:47 Entry 4 Entry 5 Entry 6 Case Attendee OTHER, ATTENDEE #1 OTHER, ATTENDEE #2 OMAR JIMENEZ, ESTEBAN Role Performed Vendor Vendor Control Panel Assembler, First Time In 08/20/20 15:29:00 08/20/20 15:29:00 08/20/20 15:29:00 Time Out 08/20/20 18:52:00 08/20/20 20:25:00 08/20/20 20:25:00 Procedure Knee Total Joint Knee Total Joint Knee Total Joint Revision, Patella Revision, Patella Revision, Patella Tendon Repair Tendon Repair Tendon Repair Other Attendee KRISTEN BISHOP Superficial Wound Closed By: Last Modified By: LINDA SAVAGE, LINDA FRY, LINDA FRY, EDDIE 08/20/20 20:29:47 08/20/20 20:29:47 08/20/20 20:29:47 Entry 7 Entry 8 Entry 9 Case Attendee YUNIOR DUBOSE EVAN, PA-C HARRIMAN, KELLY, CHEIKH Role Performed Scrub, Second Physician economic research assistant CATERPILLAR DRIVER/Nurse Operator [employer] Time In 08/20/20 15:29:00 08/20/20 15:29:00 08/20/20 15:29:00 Time Out 08/20/20 20:25:00 08/20/20 20:25:00 08/20/20 17:39:00 Procedure Knee Total Joint Knee Total Joint Knee Total Joint Revision, Patella Revision, Patella Revision, Patella Tendon Repair Tendon Repair Tendon Repair Other Attendee Superficial Wound Closed By: Last Modified By: LINDA SAVAGE, LINDA FRY, LINDA FRY RN 08/20/20 20:29:47 08/20/20 20:29:47 08/20/20 20:29:47 Entry 10 Entry 11 Entry 12 Case Attendee SERENITY RODRÍGUEZ APRN, MARX, CONNIE, EDDIE OTHER, ATTENDEE #5 CATERPILLAR DRIVER-ANS Role Performed CATERPILLAR DRIVER/Nurse Operator [employer] Public Relations Supervisor, First Vendor Time In 08/20/20 17:39:00 08/20/20 17:59:00 08/20/20 15:29:00 Time Out 08/20/20 20:25:00 08/20/20 20:25:00 08/20/20 20:25:00 Procedure Knee Total Joint Knee Total Joint Knee Total Joint Revision, Patella Revision, Patella Revision, Patella Tendon Repair Tendon Repair Tendon Repair Other Attendee PERM RELIEF PERMANENT RELIEF Dave Funes Superficial Wound Closed By: Last Modified By: LINDA SAVAGE RN MARX, CONNIE, LINDA FRY RN 08/20/20 20:29:47 08/20/20 20:29:47 08/20/20 20:29:47 Entry 13 Case Attendee OTHER, ATTENDEE #4 Role Performed Vendor Time In 08/20/20 15:29:00 Time Out 08/20/20 18:52:00 Procedure Knee Total Joint Revision, Patella Tendon Repair Other Attendee OSVALDO BROWN Superficial Wound Closed By: Last Modified By: LINDA SAVAGE RN 08/20/20 20:29:47 [facility] IntraOp Case Attendance Audit 08/20/20 20:29:47 Energy Consultant: MARXCO Modifier: MARXCO 1 <+> Time Out 1 <*> Procedure Knee Total Joint Revision, Patella Tendon Repair 2 <*> Procedure Knee Total Joint Revision, Patella Tendon Repair 3 <*> Procedure Knee Total Joint Revision, Patella Tendon Repair 4 <*> Procedure Knee Total Joint Revision, Patella Tendon Repair 5 <+> Time Out 5 <*> Procedure Knee Total Joint Revision, Patella Tendon Repair 6 <+> Time Out 6 <*> Procedure Knee Total Joint Revision, Patella Tendon Repair 7 <+> Time Out 7 <*> Procedure Knee Total Joint Revision, Patella Tendon Repair 8 <+> Time Out 8 <*> Procedure Knee Total Joint Revision, Patella Tendon Repair 9 <*> Procedure Knee Total Joint Revision, Patella Tendon Repair 10 <+> Time Out 10 <*> Procedure Knee Total Joint Revision, Patella Tendon Repair 11 <+> Time Out 11 <*> Procedure Knee Total Joint Revision, Patella Tendon Repair 12 <+> Time Out 12 <*> Procedure Knee Total Joint Revision, Patella Tendon Repair 13 <*> Procedure Knee Total Joint Revision, Patella Tendon Repair 08/20/20 19:27:35 Energy Consultant: RHETTMILLER Modifier: MARXCO 1 <*> Procedure Knee Total Joint Revision, Patella Tendon Repair 2 <*> Procedure Knee Total Joint Revision, Patella Tendon Repair 3 <+> Time Out 3 <*> Procedure Knee Total Joint Revision, Patella Tendon Repair 4 <+> Time Out 4 <*> Procedure Knee Total Joint Revision, Patella Tendon Repair 5 <*> Procedure Knee Total Joint Revision, Patella Tendon Repair 6 <*> Procedure Knee Total Joint Revision, Patella Tendon Repair 7 <*> Procedure Knee Total Joint Revision, Patella Tendon Repair 8 <*> Procedure Knee Total Joint Revision, Patella Tendon Repair 9 <*> Procedure Knee Total Joint Revision, Patella Tendon Repair 10 <*> Procedure Knee Total Joint Revision, Patella Tendon Repair 11 <*> Procedure Knee Total Joint Revision, Patella Tendon Repair 12 <+> Time In 12 <*> Procedure Knee Total Joint Revision, Patella Tendon Repair 13 <+> Time In 13 <+> Time Out 13 <*> Procedure Knee Total Joint Revision, Patella Tendon Repair 08/20/20 18:09:39 Energy Consultant: ELÍAS Modifier: DAIVDER 2 <+> Time Out 2 <*> Procedure Knee Total Joint Revision, Patella Tendon Repair <+> 11 Case Attendee <+> 11 Role Performed <+> 11 Time In <+> 11 Procedure <+> 11 Other Attendee <+> 12 Case Attendee <+> 12 Role Performed <+> 12 Procedure <+> 12 Other Attendee <+> 13 Case Attendee <+> 13 Role Performed <+> 13 Procedure <+> 13 Other Attendee 08/20/20 17:40:02 Energy Consultant: ELÍAS Modifier: DAVIDER 9 <+> Time Out 9 <*> Procedure Knee Total Joint Revision, Patella Tendon Repair <+> 10 Case Attendee <+> 10 Role Performed <+> 10 Time In <+> 10 Procedure <+> 10 Other Attendee 08/20/20 17:16:38 Energy Consultant: SUNDAYLLER Modifier: KEMILLER 1 <*> Procedure Knee Total Joint Revision 2 <*> Procedure Knee Total Joint Revision 3 <*> Procedure Knee Total Joint Revision 4 <*> Procedure Knee Total Joint Revision 5 <*> Procedure Knee Total Joint Revision 6 <*> Procedure Knee Total Joint Revision 7 <*> Procedure Knee Total Joint Revision 8 <*> Procedure Knee Total Joint Revision 9 <*> Procedure Knee Total Joint Revision 08/20/20 17:16:26 Energy Consultant: DAVIDER Modifier: KEMILLER 1 <*> Procedure Patella Open Reduction Internal Fixation, Knee Total Joint Revision 2 <*> Procedure Patella Open Reduction Internal Fixation, Knee Total Joint Revision 3 <*> Procedure Patella Open Reduction Internal Fixation, Knee Total Joint Revision 4 <*> Procedure Patella Open Reduction Internal Fixation, Knee Total Joint Revision 5 <*> Procedure Patella Open Reduction Internal Fixation, Knee Total Joint Revision 6 <*> Procedure Patella Open Reduction Internal Fixation, Knee Total Joint Revision 7 <*> Procedure Patella Open Reduction Internal Fixation, Knee Total Joint Revision 8 <*> Procedure Patella Open Reduction Internal Fixation, Knee Total Joint Revision 9 <*> Procedure Patella Open Reduction Internal Fixation, Knee Total Joint Revision 08/20/20 16:36:51 Energy Consultant: ELÍAS Modifier: SUNDAYLLER <+> 1 Procedure <+> 3 Procedure 5 <*> Role Performed Media Services Coordinator, Ancillary 5 <*> Procedure Patella Open Reduction Internal Fixation, Knee Total Joint Revision 5 <*> Other Attendee MATEO MUNSON 9 <*> Case Attendee SERENITY RODRÍGUEZ, AMMUNITION ASSEMBLY LABORER, CATERPILLAR DRIVER-ANS 9 <*> Procedure Patella Open Reduction Internal Fixation 08/20/20 16:30:48 Energy Consultant: DAVIDER Modifier: SUNDAYLLER 2 <*> Case Attendee OZZIE ALTAMIRANO, RN 2 <*> Procedure Patella Open Reduction Internal Fixation, Knee Total Joint Revision 08/20/20 16:13:35 Energy Consultant: DEE Modifier: RHETTMILLER <+> 1 Time In 2 <+> Time In 2 <*> Procedure Patella Open Reduction Internal Fixation, Knee Total Joint Revision <+> 3 Time In 4 <+> Time In 4 <*> Procedure Patella Open Reduction Internal Fixation, Knee Total Joint Revision 5 <+> Time In 5 <*> Procedure Patella Open Reduction Internal Fixation, Knee Total Joint Revision 6 <+> Time In 6 <*> Procedure Patella Open Reduction Internal Fixation, Knee Total Joint Revision 7 <+> Time In 7 <*> Procedure Patella Open Reduction Internal Fixation, Knee Total Joint Revision 8 <+> Time In 8 <*> Procedure Patella Open Reduction Internal Fixation, Knee Total Joint Revision 9 <+> Time In 9 <*> Procedure Patella Open Reduction Internal Fixation 08/20/20 14:42:56 Energy Consultant: DEE Modifier: DEE 1 <*> Case Attendee NIMO EPPS MD-ORT 1 <*> Role Performed Surgeon/Proceduralist, First 2 <*> Case Attendee OZZIE ALTAMIRANO, RN 2 <*> Role Performed Public Relations Supervisor, First 2 <*> Procedure Patella Open Reduction Internal Fixation, Knee Total Joint Revision 3 <*> Case Attendee Radha Zamora, Flame Channeler 3 <*> Role Performed Scrub, First 4 <*> Case Attendee OTHER, ATTENDEE #1 4 <*> Role Performed Vendor 4 <*> Procedure Patella Open Reduction Internal Fixation, Knee Total Joint Revision 4 <*> Other Attendee KRISTEN CLEARY 5 <*> Case Attendee OTHER, ATTENDEE #2 5 <*> Role Performed Media Services Coordinator, Ancillary 5 <*> Procedure Patella Open Reduction Internal Fixation, Knee Total Joint Revision 5 <*> Other Attendee MATEO MUNSON 6 <*> Case Attendee OMAR JIMENEZ CSA 6 <*> Role Performed Control Panel Assembler, First 6 <*> Procedure Patella Open Reduction Internal Fixation, Knee Total Joint Revision Entry 7 was deleted. Higher numbered entries shifted one position to fill the gap. <-> 7 Case Attendee JOSE AQUINO CRNA <-> 7 Role Performed CATERPILLAR DRIVER/Nurse Operator [employer] <-> 7 Procedure Patella Open Reduction Internal Fixation, Knee Total Joint Revision 8 <*> Case Attendee YUNIOR DUBOSE 8 <*> Role Performed Scrub, Second 8 <*> Procedure Patella Open Reduction Internal Fixation, Knee Total Joint Revision 08/20/20 14:41:02 Energy Consultant: DEE Modifier: DEE <+> 8 Case Attendee <+> 8 Role Performed <+> 8 Procedure <+> 9 Case Attendee <+> 9 Role Performed <+> 9 Procedure 08/20/20 14:23:34 Energy Consultant: LEINSU Modifier: LEINSU <+> 7 Case Attendee <+> 7 Role Performed <+> 7 Procedure 08/20/20 14:03:40 Energy Consultant: JEFFERYNSU Modifier: LEINSU <+> 6 Case Attendee <+> 6 Role Performed <+> 6 Procedure [facility] IntraOp Case Times Entry 1 Patient In Room Time 08/20/20 15:29:00 Out Room Time 08/20/20 20:25:00 Anesthesia Start Time 08/20/20 15:29:00 Stop Time 08/20/20 20:25:00 Anesthesia Ready 08/20/20 15:29:00 Surgery / Procedure Times Start Time 08/20/20 16:09:00 Stop Time 08/20/20 20:18:00 Last Modified By: LINDA SAVAGE RN 08/20/20 20:29:45 [facility] IntraOp Case Times Audit 08/20/20 20:29:45 Energy Consultant: RHETTMILLER Modifier: MARXCO <+> 1 Out Room Time <+> 1 Stop Time <+> 1 Stop Time [facility] IntraOp Cautery Entry 1 ESU Identification Cautery Type Monopolar ESU ID Number [id number] ID Type Hospital Number Cautery Settings Cut Setting 70 Coag Setting 70 ESU Grounding Pad Ground Pad Type Adult Grounding Pad Site Right Upper Abdomen Grounding Pad Pamela Macario RN Applied By Grounding Pad Site Intact Skin Condition Before Cautery Grounding Pad Site Unchanged Skin Condition After Cautery Last Modified By: Pamela Macario RN 08/20/20 16:49:26 [facility] IntraOp Cautery Audit 08/20/20 16:49:26 Energy Consultant: ELÍAS Modifier: KEMILLER 1 <*> Grounding Pad Site Left Lower Abdomen 1 <*> Grounding Pad Applied By Radha Zamora Flame Channeler 08/20/20 16:18:19 Energy Consultant: DEE Modifier: KEMILLER 1 <*> Grounding Pad Applied By OZZIE ALTAMIRANO RN [facility] IntraOp Communication Entry 1 Entry 2 Communication To Family/Significant other Family/Significant other Comment START UPDATE Communication By Pamela Macario, RN Pamela Macario, RN Date and Time 08/20/20 16:08:00 08/20/20 17:37:00 Last Modified By: Pamela Macario RN Moore, Kelly E, RN 08/20/20 16:50:37 08/20/20 17:48:49 [facility] IntraOp Communication Audit 08/20/20 17:48:49 Energy Consultant: RHETTMILLER Modifier: KEMILLER <+> 2 Communication By <+> 2 Date and Time <+> 2 Communication To <+> 2 Comment 08/20/20 16:50:37 Energy Consultant: KEMILLER Modifier: KEMILLER 1 <*> Communication By Radha Zamora, Flame Channeler 1 <+> Date and Time 1 <+> Comment 08/20/20 16:13:59 Energy Consultant: DEE Modifier: KEMILLER 1 <*> Communication By OZZIE ALTAMIRANO, EDDIE [facility] IntraOp Counts Verification Entry 1 Entry 2 Procedure Knee Total Joint Knee Total Joint Revision, Patella Revision, Patella Tendon Repair Tendon Repair Count Info Count Type Sponge, Sharps, Sponge, Sharps Miscellaneous Counts Verification Baseline/pre-procedure Before wound closure Sequence Count Results Not Applicable If Incorrect or Waived complete the Counts Action Taken form: If Intentional Retention, complete the Intential Retention form: Counts Performed By Count Performed By Radha Zamora Scrub LEVITSKY, BENJAMIN P (Scrub) Tech Count Performed By Pamela Macario, LINDA FRY RN (RN) Last Modified By: Pamela Macario RN MARX, CONNIE, RN 08/20/20 17:16:40 08/20/20 19:08:54 [facility] IntraOp Counts Verification Audit 08/20/20 19:08:54 Energy Consultant: SUNDAYLLJOSETTE Modifier: MARXCO <+> 2 Procedure <+> 2 Count Type <+> 2 Counts Verification Sequence <+> 2 Count Performed By (Scrub) <+> 2 Count Performed By (RN) 08/20/20 17:16:40 Energy Consultant: RHETTMILLER Modifier: KEMILLER 1 <*> Procedure Knee Total Joint Revision 08/20/20 17:16:27 Energy Consultant: KEMILLER Modifier: KEMILLER 1 <*> Procedure Patella Open Reduction Internal Fixation, Knee Total Joint Revision 08/20/20 16:46:11 Energy Consultant: KEMILLER Modifier: KEMILLER 1 <*> Procedure Patella Open Reduction Internal Fixation, Knee Total Joint Revision 1 <*> Count Type Sponge, Sharps 1 <*> Count Results Intentional retention 1 <*> Count Performed By (RN) Radha Zamora Scrub Tech 08/20/20 16:13:50 Energy Consultant: DEE Modifier: KEMILLER 1 <*> Procedure Patella Open Reduction Internal Fixation, Knee Total Joint Revision 1 <*> Count Performed By (RN) OZZIE ALTAMIRANO RN [facility] IntraOp Counts Final Entry 1 Procedure Knee Total Joint Revision, Patella Tendon Repair Final Count Info Count Type Sponge, Sharps Counts Verification Skin Closure/end of Sequence procedure Count Results Correct, surgeon notified Counts Performed By Count Performed By YUNIOR DUBOSE (Scrub) Count Performed By LINDA SAVAGE RN (RN) Last Modified By: LINDA SAVAGE RN 08/20/20 19:56:39 [facility] IntraOp Counts Final Audit 08/20/20 19:56:39 Energy Consultant: RHETTMILLER Modifier: MARXCO 1 <*> Procedure Knee Total Joint Revision, Patella Tendon Repair 1 <+> Count Performed By (Scrub) 1 <+> Count Performed By (RN) 08/20/20 17:16:41 Energy Consultant: ELÍAS Modifier: KEMILLER 1 <*> Procedure Knee Total Joint Revision 08/20/20 17:16:28 Energy Consultant: DEE Modifier: KEMILLER 1 <*> Procedure Patella Open Reduction Internal Fixation, Knee Total Joint Revision [facility] IntraOp Cultures and Spec Summary Entry 1 Cultrures and Specimens Specimen Ordered: Yes Test(s) Routine/Path-Lab, Requested/Final Culture(s)/Microbiology, Disposition Frozen Section(s)/Path-Lab Last Modified By: Pamela Macario RN 08/20/20 16:46:57 [facility] IntraOp Cultures and Spec Summary Audit 08/20/20 16:46:57 Energy Consultant: DEE Modifier: RHETTMILLER 1 <*> Test(s) Requested/Final Disposition Routine/Path-Lab, Culture(s)/Microbiology, Other: Segment text [facility] IntraOp Departure from OR Entry 1 Integumentary Assessment Integumentary WDL Assessment WDL Transfer/Handoff Transfer to PACU Phase I Handoff Method Bedside/Face to face Post-op Transport Bed (including Via specialty) Patient Transport PAMELA HUNTER CRNA, Accompanied by Pamela Macario RN Last Modified By: Pamela Macario RN 08/20/20 16:37:11 [facility] IntraOp Drains and Tubes Entry 1 Device Type Hemovac Size MED. Device Location OPSITE Method of Drainage Compression Last Modified By: OZZIE ALTAMIRANO, EDDIE 08/20/20 14:29:49 [facility] IntraOp Dressing and Packing Entry 1 Type Dressing Location OPSITE Wound Dressing Item Sanchez, Steristrip, Occlusive dressing Supplemental Cold pack, Cast, Applications fiberglass Applied By SOLOMON MCCRACKEN PA-C Other Comments MEPILEX, 2X2 COVADERM DRAIN SITE Last Modified By: LINDA SAVAGE RN 08/20/20 20:28:07 [facility] IntraOp Dressing and Packing Audit 08/20/20 20:28:07 Energy Consultant: ELÍAS Modifier: MARXCO 1 <*> Supplemental Applications Cold pack, Limb immobilizer [facility] IntraOp Fire Risk Assessment Entry 1 Fire Info Surgical Site or 0- No Incision Above the Xyphoid Open O2 Source 0- No (Mask or Cannula) Available Ignition 1- Yes (ESU, Laser, Light Source) Fire Risk 1 Assessment Score Fire Score Fire Risk Yes Assessment Complete Fire Risk Pamela Macario RN Assessment Verified By Fire Risk 08/20/20 15:29:00 Assessment Verified Date/Time Fire Risk High Risk Protocol Yes Implemented Standard Fire Yes Safety Precautions Followed Last Modified By: Pamela Macario RN 08/20/20 16:38:35 [facility] IntraOp Fire Risk Assessment Audit 08/20/20 16:38:35 Energy Consultant: ELÍAS Modifier: ELÍAS 1 <*> Fire Risk Assessment Verified By Radha Zamora Scrub Tech 08/20/20 16:14:04 Energy Consultant: ELÍAS Modifier: ELÍAS 1 <*> Fire Risk Assessment Verified By OZZIE ALTAMIRANO, EDDIE E IntraOp General Case Director Of Security 1 Case Information OR OR 05 [facility] Case Level 1 Room Verified Yes Wound Class I - Clean Specialty Orthopedic Anesthesia Type General ASA Class 3 Diagnosis Preop Diagnosis RIGHT KNEE PAIN S/P TOTAL JOINT Postop Same As Preop No Postop Diagnosis SEE MD POST OP NOTE Last Modified By: Pamela Macario RN 08/20/20 16:38:56 [facility] IntraOp General Case Data Audit 08/20/20 16:38:56 Energy Consultant: DEE Modifier: KEMILLER <+> 1 Postop Same As Preop <+> 1 Preop Diagnosis <+> 1 Postop Diagnosis [facility] IntraOp Implant Log Entry 1 Entry 2 Entry 3 Type Implant (Synthetic) Implant (Synthetic) Implant (Synthetic) Implant Log Implant Type Mesh Bone Cement Cochlear Tissue Implant Type Implant MESH HANG FLAT SHT CEMENT BONE COBALT HV IMP LEGION HK 11 Identification [id number] Description Implant Quantity 1 2 1 Implant Site RIGHT PATELLAR TENDON right knee right knee Implant Identification Model Number Implant Identification Serial Number Implant [id number] Identification Lot Number Implant Cr Bard:Jamar Franks Surg:[employer] Ovalle & Nephew:Ortho Identification Med:Alto Collar Baster Jumpbasting Name: Implant [id number] Identification Catalog Number Implant Size Implant Has an Yes Yes Expiration Date Implant Expiration 07/26/24 11/22/20 05/27/29 Date Wasted Radioactive Material Time Implanted Tissue Implant Continue for Tissue Implant Documentation Tissue Identification Number Graft Prep Per Collar Baster Jumpbasting Instructions: Tissue Preparation Method: Reconstitution Solution: Reconstitution Solution Lot Number Reconstitution Solution Expiration Date: Thawing Solution Thawing Solution Lot Number Thawing Solution Expiration Date Preparation Materials, Other Preparation Materials, Other Lot Number Preparation Materials, Other Expiration Date Tissue Prepared/Processed By Collar Baster Jumpbasting Paperwork Completed Implant Type Comment Last Modified By: Pamela Macario RN MARX, CONNIE, RN MARX, CONNIE, RN 08/20/20 17:15:37 08/20/20 19:07:44 08/20/20 19:07:44 Entry 4 Entry 5 Entry 6 Type Implant (Synthetic) Implant (Synthetic) Implant (Synthetic) Implant Log Implant Type Hardware Hardware Hardware Tissue Implant Type Implant LGN HK GD MOTION 11MM STEM PRESSFIT LEGION tibial wedge Identification [id number] Description Implant Quantity 1 1 1 Implant Site right knee right knee right knee Implant [id number] Identification Model Number Implant Identification Serial Number Implant [id number] Identification Lot Number Implant Ovalle & Nephew:Ortho Ovalle & Nephew:Ortho ovalle&nephew Identification Collar Baster Jumpbasting Name: Implant [id number] Identification Catalog Number Implant Size 5mm,size 3-4 Implant Has an Yes Yes Yes Expiration Date Implant Expiration 03/12/28 01/31/28 02/06/28 Date Wasted Radioactive Material Time Implanted Tissue Implant Continue for Tissue Implant Documentation Tissue Identification Number Graft Prep Per Collar Baster Jumpbasting Instructions: Tissue Preparation Method: Reconstitution Solution: Reconstitution Solution Lot Number Reconstitution Solution Expiration Date: Thawing Solution Thawing Solution Lot Number Thawing Solution Expiration Date Preparation Materials, Other Preparation Materials, Other Lot Number Preparation Materials, Other Expiration Date Tissue Prepared/Processed By Collar Baster Jumpbasting Paperwork Completed Implant Type Comment Last Modified By: LINDA SAVAGE RN MARX, CONNIE, RN MARX, CONNIE, RN 08/20/20 19:07:44 08/20/20 19:07:44 08/20/20 19:07:44 Entry 7 Entry 8 Entry 9 Type Implant (Synthetic) Implant (Synthetic) Implant (Synthetic) Implant Log Implant Type Hardware Grafts, non-biological Hardware Tissue Implant Type Implant BASEPLT TIB LEGN HK F tibial wedge PLACE CHANGE ROOF BOLTER OFFSET LEGION Identification [id number] Description Implant Quantity 1 1 1 Implant Site right knee right knee right knee Implant [id number] Identification Model Number Implant Identification Serial Number Implant [id number] Identification Lot Number Implant Ovalle & Nephew:Ortho Ovalle & Nephew:Ortho Identification Collar Baster Jumpbasting Name: Implant [id number] Identification Catalog Number Implant Size 5mm, 3-4 Implant Has an Yes Yes Yes Expiration Date Implant Expiration 09/08/27 03/31/30 Date Wasted Radioactive Material Time Implanted Tissue Implant Continue for Tissue Implant Documentation Tissue Identification Number Graft Prep Per Collar Baster Jumpbasting Instructions: Tissue Preparation Method: Reconstitution Solution: Reconstitution Solution Lot Number Reconstitution Solution Expiration Date: Thawing Solution Thawing Solution Lot Number Thawing Solution Expiration Date Preparation Materials, Other Preparation Materials, Other Lot Number Preparation Materials, Other Expiration Date Tissue Prepared/Processed By Collar Baster Jumpbasting Paperwork Completed Implant Type Comment Last Modified By: LINDA SAVAGE RN MARX, CONNIE, LINDA FRY RN 08/20/20 19:07:44 08/20/20 19:07:44 08/20/20 19:07:44 Entry 10 Entry 11 Entry 12 Type Implant (Synthetic) Implant (Synthetic) Implant (Synthetic) Implant Log Implant Type Hardware Hardware Hardware Tissue Implant Type Implant FEMORAL WEDGE DIS 5MM FEMORAL WEDGE DIS 5MM STEM PRESSFIT LEGION Identification [id number] Description Implant Quantity 1 1 1 Implant Site right knee right knee right knee Implant Identification Model Number Implant Identification Serial Number Implant [id number] Identification Lot Number Implant Ovalle & Nephew:Ortho Ovalle & Nephew:Ortho Ovalle & Nephew:Ortho Identification Collar Baster Jumpbasting Name: Implant [id number] Identification Catalog Number Implant Size Implant Has an Yes Yes Yes Expiration Date Implant Expiration 10/04/27 04/29/21 05/24/26 Date Wasted Radioactive Material Time Implanted Tissue Implant Continue for Tissue Implant Documentation Tissue Identification Number Graft Prep Per Collar Baster Jumpbasting Instructions: Tissue Preparation Method: Reconstitution Solution: Reconstitution Solution Lot Number Reconstitution Solution Expiration Date: Thawing Solution Thawing Solution Lot Number Thawing Solution Expiration Date Preparation Materials, Other Preparation Materials, Other Lot Number Preparation Materials, Other Expiration Date Tissue Prepared/Processed By Collar Baster Jumpbasting Paperwork Completed Implant Type Comment Last Modified By: LINDA SAVAGE, LINDA FRY, LINDA FRY RN 08/20/20 19:07:44 08/20/20 19:07:44 08/20/20 19:07:44 Entry 13 Entry 14 Type Implant (Synthetic) Implant (Synthetic) Implant Log Implant Type Hardware Hardware Tissue Implant Type Implant PLACE CHANGE ROOF BOLTER OFFSET LEGION ASSEMBLY FEM BARB LGN Identification [id number] Description Implant Quantity 1 1 Implant Site right knee right knee Implant Identification Model Number Implant Identification Serial Number Implant [id number] Identification Lot Number Implant Ovalle & Nephew:Ortho Ovalle & Nephew:Ortho Identification Collar Baster Jumpbasting Name: Implant [id number] Identification Catalog Number Implant Size Implant Has an Yes Yes Expiration Date Implant Expiration 11/17/29 01/23/27 Date Wasted Radioactive Material Time Implanted Tissue Implant Continue for Tissue Implant Documentation Tissue Identification Number Graft Prep Per Collar Baster Jumpbasting Instructions: Tissue Preparation Method: Reconstitution Solution: Reconstitution Solution Lot Number Reconstitution Solution Expiration Date: Thawing Solution Thawing Solution Lot Number Thawing Solution Expiration Date Preparation Materials, Other Preparation Materials, Other Lot Number Preparation Materials, Other Expiration Date Tissue Prepared/Processed By Collar Baster Jumpbasting Paperwork Completed Implant Type Comment Last Modified By: LINDA SAVAGE, LINDA FRY RN 08/20/20 19:07:44 08/20/20 19:07:45 SJE IntraOp Implant Log Audit 08/20/20 19:07:45 Energy Consultant: PATRICIA Modifier: MARXCO <+> 14 Implant Identification Lot Number <+> 14 Implant Identification Collar Baster Jumpbasting Name: <+> 14 Implant Expiration Date <+> 14 Implant Site <+> 14 Implant Identification Catalog Number <+> 14 Implant Has an Expiration Date 08/20/20 19:07:44 Energy Consultant: ELÍAS Modifier: MARXCO <+> 2 Implant Identification Description <+> 2 Implant Identification Lot Number <+> 2 Implant Identification Collar Baster Jumpbasting Name: <+> 2 Implant Expiration Date <+> 2 Implant Site <+> 2 Implant Quantity <+> 2 Implant Identification Catalog Number <+> 2 Implant Type <+> 2 Type <+> 3 Implant Identification Description <+> 3 Implant Identification Lot Number <+> 3 Implant Identification Collar Baster Jumpbasting Name: <+> 3 Implant Expiration Date <+> 3 Implant Site <+> 3 Implant Quantity <+> 3 Implant Identification Catalog Number <+> 3 Implant Type <+> 3 Implant Has an Expiration Date <+> 3 Type <+> 4 Implant Identification Description <+> 4 Implant Identification Lot Number <+> 4 Implant Identification Collar Baster Jumpbasting Name: <+> 4 Implant Expiration Date <+> 4 Implant Site <+> 4 Implant Quantity <+> 4 Implant Identification Catalog Number <+> 4 Implant Type <+> 4 Implant Has an Expiration Date <+> 4 Type <+> 5 Implant Identification Description <+> 5 Implant Identification Lot Number <+> 5 Implant Identification Collar Baster Jumpbasting Name: <+> 5 Implant Expiration Date <+> 5 Implant Site <+> 5 Implant Quantity <+> 5 Implant Identification Catalog Number <+> 5 Implant Type <+> 5 Implant Has an Expiration Date <+> 5 Type <+> 6 Implant Identification Description <+> 6 Implant Identification Lot Number <+> 6 Implant Identification Collar Baster Jumpbasting Name: <+> 6 Implant Size <+> 6 Implant Expiration Date <+> 6 Implant Site <+> 6 Implant Quantity <+> 6 Implant Type <+> 6 Implant Identification Model Number <+> 6 Implant Has an Expiration Date <+> 6 Type <+> 7 Implant Identification Description <+> 7 Implant Identification Lot Number <+> 7 Implant Identification Collar Baster Jumpbasting Name: <+> 7 Implant Site <+> 7 Implant Quantity <+> 7 Implant Identification Catalog Number <+> 7 Implant Type <+> 7 Implant Has an Expiration Date <+> 7 Type <+> 8 Implant Identification Description <+> 8 Implant Identification Lot Number <+> 8 Implant Size <+> 8 Implant Expiration Date <+> 8 Implant Site <+> 8 Implant Quantity <+> 8 Implant Type <+> 8 Implant Identification Model Number <+> 8 Implant Has an Expiration Date <+> 8 Type <+> 9 Implant Identification Description <+> 9 Implant Identification Lot Number <+> 9 Implant Identification Collar Baster Jumpbasting Name: <+> 9 Implant Expiration Date <+> 9 Implant Site <+> 9 Implant Quantity <+> 9 Implant Identification Catalog Number <+> 9 Implant Type <+> 9 Implant Has an Expiration Date <+> 9 Type <+> 10 Implant Identification Description <+> 10 Implant Identification Lot Number <+> 10 Implant Identification Collar Baster Jumpbasting Name: <+> 10 Implant Expiration Date <+> 10 Implant Site <+> 10 Implant Quantity <+> 10 Implant Identification Catalog Number <+> 10 Implant Type <+> 10 Implant Has an Expiration Date <+> 10 Type <+> 11 Implant Identification Description <+> 11 Implant Identification Lot Number <+> 11 Implant Identification Collar Baster Jumpbasting Name: <+> 11 Implant Expiration Date <+> 11 Implant Site <+> 11 Implant Quantity <+> 11 Implant Identification Catalog Number <+> 11 Implant Type <+> 11 Implant Has an Expiration Date <+> 11 Type <+> 12 Implant Identification Description <+> 12 Implant Identification Lot Number <+> 12 Implant Identification Collar Baster Jumpbasting Name: <+> 12 Implant Expiration Date <+> 12 Implant Site <+> 12 Implant Quantity <+> 12 Implant Identification Catalog Number <+> 12 Implant Type <+> 12 Implant Has an Expiration Date <+> 12 Type <+> 13 Implant Identification Description <+> 13 Implant Identification Lot Number <+> 13 Implant Identification Collar Baster Jumpbasting Name: <+> 13 Implant Expiration Date <+> 13 Implant Site <+> 13 Implant Quantity <+> 13 Implant Identification Catalog Number <+> 13 Implant Type <+> 13 Implant Has an Expiration Date <+> 13 Type <+> 14 Implant Identification Description <+> 14 Implant Quantity <+> 14 Implant Type <+> 14 Type SJE IntraOp Intraoperative Assessment Entry 1 Handoff Method Bedside/Face to face Valid History / Yes Physical in Chart Preoperative Yes Checklist Reviewed/Evaluated Allergies Reviewed Yes Patient is Latex No Sensitive Isolation Not applicable Precautions Noted Skin Assessment Yes Verified Present Upon IVs Arrival to OR Last Modified By: OZZIE ALTAMIRANO RN 08/20/20 14:24:24 SJE IntraOp Intraoperative Equipment Entry 1 Type Equipment Equipment Equipment Stefani Suction System Setting HIGH Intraop Monitoring Electrocardiogram Three lead placement (ECG) Electrode Placement Antiembolic Devices Antiembolic Devices Sequential compression device, knee high Antiembolic Device [id number] ID Number Scopes Photo/Video Documentation Photo No Video No Last Modified By: OZZIE ALTAMIRANO RN 08/20/20 14:32:00 SJE IntraOp Medication Admin Entry 1 Entry 2 Entry 3 Medication/Irrigant TRANEXAMIC ACID vancomycin 1Gm vial - hydrogen peroxide 3% - 1000MG/10 ML [id number] Combo Med List Time Administered Route of ADDED TO TXA TOPICAL ON OPERATIVE Administration SITE Dose Dose 1000 1 237 Unit of Measure mg gram ml Volume 10ML Administered By NIMO EPPS CHRISTENSEN, CHRISTIAN, CHRISTENSEN, CHRISTIAN, MD-ORT -ORT -ORT Procedure Irrigation Irrigant Volume In Irrigant Volume Out Last Modified By: OZZIE ALTAMIRANO, OZZIE NGUYEN, OZZIE NGUYEN RN 08/20/20 14:29:36 08/20/20 14:29:36 08/20/20 14:29:36 SJE IntraOp Patient Positioning Entry 1 Procedure Knee Total Joint Revision, Patella Tendon Repair Body Position Supine Left Arm Position Secured on padded arm board Right Arm Position Secured on padded arm board Left Leg Position Uncrossed, parallel Right Leg Position Uncrossed, parallel Feet Uncrossed Yes Pressure Points Yes Checked Positioning Devices Foot Rest, Pillows, Safety Strap, Chest Positioned By OMAR JIMENEZ CSA Position Verified Positioning Yes Verified by Anesthesia Positioning Yes Verified by Surgeon Last Modified By: Pamela Macario RN 08/20/20 17:16:40 SJE IntraOp Patient Positioning Audit 08/20/20 17:16:40 Energy Consultant: ELÍAS Modifier: KEMILLER 1 <*> Procedure Knee Total Joint Revision 08/20/20 17:16:27 Energy Consultant: ELÍAS Modifier: ELÍAS 1 <*> Procedure Knee Total Joint Revision 08/20/20 16:18:28 Energy Consultant: DEE Modifier: SUNDAYLLER 1 <*> Body Position Supine 1 <*> Right Arm Position Secured on padded arm board 1 <*> Left Arm Position Secured on padded arm board 1 <*> Right Leg Position Uncrossed, parallel 1 <*> Left Leg Position Uncrossed, parallel 1 <*> Feet Uncrossed Yes 1 <*> Pressure Points Checked Yes 1 <*> Procedure Knee Total Joint Revision 1 <*> Positioning Devices Foot Rest, Pillows, Safety Strap, Chest 1 <*> Positioning Verified by Anesthesia Yes 1 <*> Positioning Verified by Surgeon Yes 1 <*> Positioned By OMAR JIMENEZ CSA SJE IntraOp Sign In Entry 1 Patient, Site, Yes Procedure Identified Surgical Consent Yes Confirmed Relevant Surgical Yes Documents Available Surgical Site Yes Marked by person performing procedure Anesthesia Machine Yes Check Completed Medication Checks Yes Completed Allergies Yes Airway Electronically signed by Chantal [facility] Conversion Vision Therapist Cerner at 06/16/2022 8:11 PM CDT documented in this encounter Plan of Treatment Not on file documented as of this encounter Visit Diagnoses Not on filedocumented in this encounter
--- OUTSIDE RECORDS SUMMARY | 2024-08-09 13:26 | XMS_ITS | Encounter Summary ---
Author Organization [employer] Address [address] [place] [address] Care Team Providers Care Steam Conditioner Filling Name Role Phone Unavailable Primary Care Provider Unavailabl e Encounter Details Date Type Department Care Team (Late st Contact Info) Description 06/26/2019 Transcribed Document [facility] [place] [address] [place] [address] ProviderMariela MD [address] [place] [address] Social History Tobacco Use Types Packs/Day Years [...] Conversion Note - Historical ProviderMD - 06/26/2019 11:22 AM CDT JUDITH Entered On: 06/26/2019 11:22 EDT Performed On: 06/26/2019 11:22 EDT by DONNA DRIVER MD-INT JUDITH Indication of use for OOCS : Acute Illness OOCS Misuse Suspected : Other Was JUDITH queried : Other Patient Advised to seek OOCS Treatment : Other Treatment to Include Limited Supply of OOCS : Other JUDITH Result : Other JUDITH Other Notes : as per the referring facility medical records Patient cancelled on OOCS : Other JUDITH : . DONNA DRIVER MD-INT - 06/26/2019 11:22 EDT Electronically signed by Chantal [facility] Conversion Support Director Cerner at 06/16/2022 8:19 PM CDT documented in this encounter Plan of Treatment Not on file documented as of this encounter Visit Diagnoses Not on filedocumented in this encounter
--- OUTSIDE RECORDS SUMMARY | 2024-08-09 13:26 | XMS_ITS | Encounter Summary ---
Author Organization [employer] Address [address] [place] [address] Care Team Providers Care Design Release Engineer Name Role Phone Unavailable Primary Care Provider Unavailabl e Encounter Details Date Type Department Care Team (Late st Contact Info) Description 06/18/2019 Transcribed Document [facility] [place] [facility] [place] [address] ProviderMariela MD [address] [place] [address] Social History Tobacco Use Types [...] Cerner Conversion Note - Historical ProviderMD - 06/18/2019 4:50 PM CDT Patient: SOFIA GILL Age: 79 Years Sex: Female : 1940 Subjective Patient seen and examined. No acute events overnight. increased confusion, refusing O2, spo2 in 80's HR and BP WNL afebrile Intake & Output Intake & Output Totals Last 24 Hours (7a-7a) Intake (11 Events) Continuous Infusions (700 mL) Medications (379.17 mL) Output (5 Events) Castellano Catheter (1030 mL) Urine Voided (Volume) (700 mL) Input Total: 1079.17 mL Output Total: 1730 mL Balance: -650.83 mL Vital Signs T: 37.2 ??C TMIN: 36.7 ??C TMAX: 37.2 ??C HR: 156(Monitored) RR: 16 BP: 125/56 SpO2: 84% Physical Exam Difficult due to agitation or pain with range of motion of the left lower extremity Appears to be grossly neurovascular intact skin intact VTE Risk Total Score VTE Prophylaxis - Surgical Heparin 5,000 Units, SubCutaneous, Inj, Q8H, Routine, Start 06/18/19 6:05:00 EDT (DONNA DRIVER) Sequential Compression Device Start: 06/16/19 21:25:00 EDT, Bilateral, Length: Knee High, While patient is in bed, Continuous Order (DONNA DRIVER) Assessment/Plan 79-year-old female with 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 Patient has become agitated and somewhat confused likely due to hypoxia had a discussion with patient's original surgeon Dr. Mendenhall who agrees that above-knee amputation is the proper course for this patient continues on suppressive antibiotics follow-up aspirate cultures. Somewhat paradoxical with the high lymphocyte and low poly-count of the knee aspiration however Gram stain positive for same bacteria the patient has been positive blood cultures for. Plan per Dr. Mendenhall is above-knee amputation on Wednesday morning Please make patient nothing by mouth after midnight on Wednesday continue IV antibiotics per infectious disease Acute kidney injury N17.9 Bacteremia due to group B Streptococcus agalactiae R78.81 Chronic venous insufficiency I87.2 CRP elevated R79.82 Elevated procalcitonin R79.89 ESR raised R70.0 GERD (gastroesophageal reflux disease) K21.9 HTN (hypertension) I10 Hypercholesteremia E78.00 Hypokalemia E87.6 Hyponatremia E87.1 Hypothyroid E03.9 Left knee cellulitis L03.90 Left knee pain M25.562 Left prothetic knee infection M00.9 Leucocytosis D72.829 Morbid obesity with BMI of 40.0-44.9, adult E66.01 Murmur, cardiac R01.1 Osteoarthritis M19.90 Sepsis A41.9 Sleep apnea G47.30 Orders: Culture Anaerobic Culture Body Fluid and Stain Medications Inpatient acetaminophen-HYDROcodone 325 mg-5 mg oral tablet, 1 Tab, Oral, Q4H, PRN acetaminophen-HYDROcodone 325 mg-5 mg oral tablet, 2 Tab, Oral, Q4H, PRN Ativan, 1 mg= 0.5 mL, IntraMuscular, 1-Time Benadryl, 25 mg= 1 Tab, Oral, Q4H, PRN calcium gluconate calcium gluconate + Sodium Chloride 0.9% intravenous solution 100 mL calcium gluconate + Sodium Chloride 0.9% intravenous solution 100 mL Caltrate 600 + D, 1 Tab, Oral, BID clindamycin, 600 mg= 50 mL, IV Piggyback, Q8H cloNIDine, 0.1 mg= 1 Tab, Oral, Q4H, [...] 3 mL, Nebulized Inhalation , RT_Q6H, PRN Florastor, 250 mg= 1 Cap, Oral, Daily fluticasone 50 mcg/inh nasal spray, 2 [place], Nostrils Both, BID, PRN gabapentin, 300 mg= 1 Cap, Oral, At Bedtime, PRN heparin, 5000 Units= 1 mL, SubCutaneous, Q8H [...] BID fluticasone 50 mcg/inh nasal spray, 2 [place], Nostrils Both, BID, PRN Lasix 40 mg [...] inhalation aerosol, 1 Puff, Inhalation, QID, PRN Labs Results JUN 17 03:36 L 130 L 97 H 50 / 87 H 5.3 24 H 1.51 \ JUN 17 03:36 \ L 10.3 / H 21.4 266 / L 32.3 \ Anion Gap: 14 Calcium Level: 8.1 mg/dL Low Imaging Results (Last 24 Hours) No Radiology Results Found Problem List/Past Medical History Ongoing Cardiac arrhythmia [...] revision left TKA, right RCR, x 2. Allergies amLODIPine valdecoxib Bextra (Itching) Latex (Itching) Mobic (Itching) Naprosyn (Itching) etodolac (Itching) penicillin (Shortness of breath) phentermine (unknown reaction) sulfa drugs (Itching) Electronically signed by Chantal [facility] Conversion Trauma Surgeon Cerner at 06/16/2022 8:06 PM CDT documented in this encounter Plan of Treatment Not on file documented as of this encounter Visit Diagnoses Not on filedocumented in this encounter
--- OUTSIDE RECORDS SUMMARY | 2024-08-09 13:26 | XMS_ITS | Encounter Summary ---
Author Organization [employer] Address [address] [place] [address] Care Team Providers Care Global Compensation Director Name Role Phone Unavailable Primary Care Provider Unavailabl e Encounter Details Date Type Department Care Team (Late st Contact Info) Description 08/20/2020 Transcribed Document [facility] [place] [facility] [place] [address] ProviderMariela MD [facility] [place] [address] Social History Tobacco Use Types [...] Conversion Note - Historical ProviderMD - 08/20/2020 3:22 PM CDT Procedural Documentation Entered On: 08/20/2020 15:26 EDT Performed On: 08/20/2020 15:22 EDT by THIERRY GOODRICH RN Procedure Documentation Time Out Pause Time : 08/20/2020 15:03 EDT All Activity Suspended : Yes Team Verbally Confirms Information : Correct patient identity, Correct side and site are marked, Consent form is present and accurate, Agreement on the procedure to be done, Correct patient position, Relevant images/results properly labeled/appropriately displayed Proper Use of Sterile Apparel per Policy : Yes Procedure Case Attendee : EREN MORILLO MD Procedure Case Attendee Role : Anesthesiologist Procedure Case Attendee Role 2 : RN Monitor Procedure Case Attendee 2 : Viky Gallagher RN Procedure Case Attendee Role 3 : manager clinical applications Case Attendee 3 : THIERRY GOODRICH RN Procedure Case Attendee Role 4 : Observer Procedure Case Attendee 4 : Bridget Jauregui RN ELDER, JEAN M, RN - 08/20/2020 15:22 EDT Electronically signed by Chantal [facility] Conversion Manpower Development Advisor Cerner at 06/16/2022 8:11 PM CDT documented in this encounter Plan of Treatment Not on file documented as of this encounter Visit Diagnoses Not on filedocumented in this encounter
--- OUTSIDE RECORDS SUMMARY | 2024-08-09 13:26 | XMS_ITS | Encounter Summary ---
Author Organization [employer] Address [address] [place] [address] Care Team Providers Care Informix Developer Name Role Phone Unavailable Primary Care Provider Unavailabl e Encounter Details Date Type Department Care Team (Late st Contact Info) Description 07/10/2019 Transcribed Document [facility] [address] [place] [address] Shawanda Barahona MD [address] [place] [address] Social History Tobacco Use Types Packs/Day Years [...] Conversion Note - Shawanda Barahona MD - 07/10/2019 5:28 PM EDT Patient: SOFIA GILL Age: 79 [...] tess, sore throat, has constipation, no diarrhea ros see hpi Objective Vitals Signs (last 24 hrs) Last Charted Minimum Maximum Temp 98.7 (JULY 09 07:38) 98.7 (JULY 09:38) 99.6 (JULY 08:00) Mon HR 87 (JULY 09:38) 87 (JULY 09:38) 100 (JULY 08:) Resp Rate 18 (JULY 09:38) 16 (JULY 08 23:00) 18 (JULY 08:) SBP 103 (JULY 09:38) 103 (JULY 09:38) 134 (JULY 08:00) DBP L 40 (JULY 09:38) L 40 (JULY 09:38) L 50 (JULY 08:00) MAP 54 (JULY 09:38) 54 (JULY 09:38) 54 (JULY 09:38) SpO2 95 (JULY 09:38) 95 (JULY 09:38) 98 (JULY 08:) Physical Examination: Gen: Alert, arousable, pleasant HEENT: NC/AT, no ext oral lesions, no scleral icterus RESP: bilateral expansion clear regino. GI: nondistended; soft/bs+Ve MS: 2+ edema [...] (JULY 05) L 1.9 (JULY 03) Micro: [facility]: 06/15 [facility] Blood cultures positive for group B [...]
--- OUTSIDE RECORDS SUMMARY | 2024-08-09 13:26 | XMS_ITS | Encounter Summary ---
Author Organization [employer] Address [address] [place] [address] Care Team Providers Care Log Deckman Name Role Phone Unavailable Primary Care Provider Unavailabl e Encounter Details Date Type Department Care Team (Late st Contact Info) Description 08/20/2020 Transcribed Document [facility] [place] [facility] [place] [address] ProviderMariela MD [facility] [place] [address] Social History Tobacco Use Types [...] Historical Provider, - 08/20/2020 4:09 PM CDT [facility] Main [place] PreOp Summary Primary Physician: NIMO EPPS MD-ORT Finalized Date/Time: 08/21/20 09:12:03 Pt. Name: SOFIA GILL S /Sex: 1940 Female Med Rec #: [id number] Physician: NIMO EPPS MD-ORT Financial #: [id number] Pt. Type: I Room/Bed: 428/1 Admit/Disch: 08/20/20 04:48:00 - Institution: [facility] [place] PreOp Case Times Entry 1 In Preop 08/20/20 11:20:00 Ready for Holding n/a Room Patient Ready for 08/20/20 12:30:00 Surgery Patient Out of Preop 08/21/20 15:27:00 Patient Out of n/a Holding Room Last Modified By: KASSI GAY RN 08/21/20 09:12:01 SJTita PreOp Case Times Audit 08/21/20 09:12:01 Professional Programmer Analyst: [email or web address] Modifier: KIELEJ <+> 1 Patient Out of Preop Finalized By: KASSI GAY, RN Document Signatures Signed By: KASSI GAY RN 08/21/20 09:12 documented in this encounter Plan of Treatment Not on file documented as of this encounter Visit Diagnoses Not on filedocumented in this encounter
--- OUTSIDE RECORDS SUMMARY | 2024-08-09 13:26 | XMS_ITS | Encounter Summary ---
Author Organization [employer] Address [address] [place] [address] Care Team Providers Care Teacher Counselor Name Role Phone Unavailable Primary Care Provider Unavailabl e Encounter Details Date Type Department Care Team (Late st Contact Info) Description 06/18/2019 Transcribed Document [facility] [place] Family Medicine [address] [place] [address] ProviderMariela MD [address] [place], [place] [id number] Social History Tobacco Use Types Packs/Day Years [...] Conversion Note - Historical ProviderMD - 06/18/2019 6:25 AM CDT Sepsis Screening Tool Entered On: 06/18/2019 6:44 EDT Performed On: 06/18/2019 6:25 EDT by Ophelia Ling RN Provider Notification Provider Not Notified Reason : Orders exist for treatment of abnormal results Ophelia Ling, RN - 06/18/2019 6:44 EDT documented in this encounter Plan of Treatment Not on file documented as of this encounter Visit Diagnoses Not on filedocumented in this encounter
--- OUTSIDE RECORDS SUMMARY | 2024-08-09 13:26 | XMS_ITS | Encounter Summary ---
Author Organization [employer] Address [address] [place] [address] Care Team Providers Care Wood Getter Name Role Phone Unavailable Primary Care Provider Unavailabl e Encounter Details Date Type Department Care Team (Late st Contact Info) Description 06/18/2019 Transcribed Document [facility] [place] [address] [place] [address] ProviderMariela MD [address] [id number] Social History Tobacco Use Types Packs/Day Years [...] Conversion Note - Historical ProviderMD - 06/18/2019 10:00 PM CDT Patch Check Entered On: 06/19/2019 0:15 EDT Performed On: 06/18/2019 22:00 EDT by Adrianna Ortiz RN Patch Check Patch Check Result : No Patch Check - Type of Patch : scopolamine (Transderm-Scop) Adrianna Ortiz RN - 06/19/2019 0:15 EDT documented in this encounter Plan of Treatment Not on file documented as of this encounter Visit Diagnoses Not on filedocumented in this encounter
--- OUTSIDE RECORDS SUMMARY | 2024-08-09 13:26 | XMS_ITS | Encounter Summary ---
Author Organization [employer] Address [address] [place] [address] Care Team Providers Care Armoured Corps Officer Name Role Phone Unavailable Primary Care Provider Unavailabl e Encounter Details Date Type Department Care Team (Late st Contact Info) Description 07/11/2019 Transcribed Document [facility] [place] [address] [place] [address] ProviderMariela MD [address] [place] [address] Social History Tobacco Use Types Packs/Day Years Used Date Smoking Tobacco: Never Assessed Comments Unknown Sex and Gender Information Value Date Recorded Sex Assigned at Female 09/02/2021 8:57 PM CDT Legal Sex Female 6:58 PM CDT Gender Identity Female 09/02/2021 8:57 PM CDT Sexual Orientation Not on file documented as of this encounter Miscellaneous Notes * Cerner Conversion Note - Historical ProviderMD - 07/11/2019 2:00 AM CDT Health Professor Details Entered On: 07/11/2019 1:43 EDT Performed On: 07/11/2019 2:00 EDT by Georgina Olivo RN Order Details Transport Mode Order Detail : Stretcher/Gurney Isolation Precautions Order Detail : Standard Precautions Order Detail : N/A IV Order Detail : 0 Oxygen Order Detail : 0 Nurse Collect Order Detail : 1 Lift/Transfer : Moderate assist Central Line Order Detail : Yes Room Service : Appropriate Arterial Line : No Georgina Olivo RN - 07/11/2019 1:43 EDT documented in this encounter Plan of Treatment Not on file documented as of this encounter Visit Diagnoses Not on filedocumented in this encounter
--- OUTSIDE RECORDS SUMMARY | 2024-08-09 13:26 | XMS_ITS | Encounter Summary ---
Author Organization [employer] Address [address] [place] [address] Care Team Providers Care Railcar Mechanic Name Role Phone Unavailable Primary Care Provider Unavailabl e Encounter Details Date Type Department Care Team (Late st Contact Info) Description 06/26/2019 Transcribed Document [facility] Family Medicine [facility] [place] [address] ProviderMariela MD [address] [place] [address] Social History Tobacco Use Types [...] Conversion Note - Historical ProviderMD - 06/26/2019 2:56 PM CDT Final Discharge Planning Entered On: 06/26/2019 15:01 EDT Performed On: 06/26/2019 14:56 EDT by DEBORAH CAMPOS RN-Carding Supervisor Final Discharge Planning Discharge Arrangements : Patient Post-Acute Information Patient Name: SOFIA GILL Gender: Female : 44 Age: 79 Years No Post-Acute Placement(s) Listed No Post-Acute Service(s) Listed No [place] Referral(s) Listed Patient Offered Choice/Affiliations Explained : No Designation of Choice Signed : Yes Important Medicare Message Reviewed With : Patient Important Medicare Message Reviewed D/T : 06/26/2019 14:45 EDT Transportation Needs : Ambulance Discharge Transportation Arrangement Cmt : cody [id number] Follow Up Appointment Scheduled : No Is Patient High/Moderate Readmission Risk? : Yes Patient/Family Notified of Plan : Yes Patient/Family Notified : SOFIA GILL Discharge Medication Arrangements : N/A Is Patient Ready for Discharge? : Yes Physician Notified Patient is Ready for Discharge? : Yes Discharge To Care Management : [id number] Physician Notified of Patient Discharge Comment : TRANSITIONING TO [facility] FOR CONTINUED CARE IN ACUTE SETTING..WILL NEED TO SCHEDULE FOLLOW UP AND ANY DME AT DISCHARGE FROM [facility]..DEBORAH BENAVIDEZ, RN-Carding Supervisor - 06/26/2019 14:56 EDT Final Narrative Note Final Narrative Note : NURSE AWARE OF D/C PLAN AND WILL CLAL REPORT TO [phone]..D/C SUMMARY COMPLETED..DEBORAH BENAVIDEZ RN-Carding Supervisor - 06/26/2019 14:56 EDT documented in this encounter Plan of Treatment Not on file documented as of this encounter Visit Diagnoses Not on filedocumented in this encounter
--- OUTSIDE RECORDS SUMMARY | 2024-08-09 13:26 | XMS_ITS | Encounter Summary ---
Author Organization [employer] Address [address] [place] [address] Care Team Providers Care Bag Turner Name Role Phone Unavailable Primary Care Provider Unavailabl e Encounter Details Date Type Department Care Team (Late st Contact Info) Description 08/24/2020 Transcribed Document [facility] [place] [facility] [address] ProviderMariela [place] [address] Social History Tobacco Use Types [...] Note - Historical ProviderMD - 08/24/2020 10:00 AM CDT Pain Assessment Entered On: 08/24/2020 10:50 EDT Performed On: 08/24/2020 11:21 EDT by Didi Villegas RN Intervention Information: traMADol Performed by Didi Villegas RN on 08/24/2020 10:21:00 EDT traMADol,50mg Oral Pain Assessment Pain Assessment : Follow-up assessment Pain Scale Goal : 3 Pain Scale Used : 0-10 Scale Didi Villegas RN - 08/24/2020 10:50 EDT Pain Scale Intensity : 2 Didi Villegas RN - 08/24/2020 10:50 EDT Image 4 - Images currently included in the form version of this document have not been included in the text rendition version of the form. Electronically signed by Maureen Cornejo Conversion Aircraft Mechanic Electrical And Radio Cerner at 06/16/2022 8:29 PM CDT documented in this encounter Plan of Treatment Not on file documented as of this encounter Visit Diagnoses Not on filedocumented in this encounter
--- OUTSIDE RECORDS SUMMARY | 2024-08-09 13:26 | XMS_ITS | Encounter Summary ---
Author Organization [employer] Address [address] [place] [address] Care Team Providers Care Transport Corps Officer Name Role Phone Unavailable Primary Care Provider Unavailabl e Encounter Details Date Type Department Care Team (Late st Contact Info) Description 08/22/2018 Transcribed Document [facility] [place] Family Medicine [facility] [place] [address] ProviderMariela MD [facility] [place] [address] Social History Tobacco Use Types [...] Conversion Note - Historical ProviderMD - 08/22/2018 7:49 AM CDT Pre Procedure Adult Entered On: 08/22/2018 7:52 EDT Performed On: 08/22/2018 7:49 EDT by THIERRY GOODRICH RN Height and Weight, Clinical Dosing Height Source : Stated Height Entry Format : [place] Height, Feet : 4 ft(Converted to: 122 cm, 48 Inch) Height, Inches : 11.5 Inch(Converted to: 0 ft 12 Inch, 29.21 cm) Clinical Height : 151.13 cm Weight Source : Standing scale Weight Entry Format : [place] Clinical Dosing Weight : 97.73 kg Weight, Pounds : 215 lb Body Surface Area (BSA) : 1.91 m2 Body Mass Index : 42.8 kg/m2 (>HHI) [place] Body Weight : 44 kg THIERRY GOODRICH RN - 08/22/2018 7:49 EDT Health Histories Smoking Status : Never (less than 100 in lifetime; none in last 30 days) Smokeless Tobacco Status : Never THIERRY GOODRICH RN - 08/22/2018 7:49 EDT Social History (As Of: 08/22/2018 07:52:41 EDT) Tobacco: Smoking Status Never smoker. Used Tobacco, but Quit No. (Last Updated: 10/16/2016 11:53:46 EDT by RUI EMMANUEL, RN) Alcohol: Alcohol Use History No. (Last Updated: 10/16/2016 11:53:51 EDT by RUI EMMANUEL, EDDIE) Substance Abuse: Drug Use Hx: No. Use in Last 12 Months: No. (Last Updated: 10/16/2016 11:53:56 EDT by RUI EMMANUEL RN) Nutrition/Health: Regular, Caffeine intake amount: occassional. [...] 10/16/2016 11:55:14 EDT by RUI EMMANUEL, EDDIE) Infectious Disease History Infectious Disease History : Chicken pox/Shingles, Measles Isolation Needed : Standard Fever/Chills Last 48 Hours : No Travel To Regions with Travel Advisories : No Travel Outside [place] Within Last 30 Days : No Contact With Traveler to Advisory Region : No Exposure to Contagious Illness : No Tuberculosis Symptoms : None THIERRY GODORICH RN - 08/22/2018 7:49 EDT Anesthesia/Transfusion History Family History of Anesthesia Reaction : Prior transfusion without reaction Transfusion History : Prior anesthesia without reaction Family History of Anesthesia Reaction : None THIERRY GOODRICH RN - 08/22/2018 7:49 EDT Functional Assessment Living Situation : Home [...] Special Services and Community Resources : None THIERRY GOODRICH RN - 08/22/2018 7:49 EDT Psychosocial History Do You Have a History of the Following? : Patient denies history Currently in Unsafe Situation : No Do You Have a Support System? : Yes Tried to Harm Yourself in the Past? : No Thoughts of Harming/Killing Yourself : No THIERRY GOODRICH RN - 08/22/2018 7:49 EDT Advance Directive Patient has Advance Directive *Q : Yes, Advance Directive not with the patient Advance Directive Type : Living will Copy Advance Directive Verified/on Chart : No THIERRY GOODRICH RN - 08/22/2018 7:49 EDT Teaching/Learning Assessment Individuals Taught : Patient, Child Readiness to Learn : Cooperative Baseline Knowledge of Topic : Good Readiness to Learn : Explanation, Printed materials THIERRY GOODRICH RN - 08/22/2018 7:58 EDT Barriers To Learning : None evident Learning Style Preferences Patient : Printed materials, Verbal explanation Learning Style Preferences Family : Printed materials, Verbal explanation THIERRY GOODRICH RN - 08/22/2018 7:49 EDT Education Topics, Periop Preadmission Perioperative Education Grid Arrival Time/Place : Verbalizes understanding Falls : Verbalizes understanding IV's : Verbalizes understanding NPO Status/Directions : Verbalizes understanding Pain Management : Verbalizes understanding Preprocedure Preparations : Verbalizes understanding Preprocedure Tests/Labs : Verbalizes understanding Responsible Adult : Verbalizes understanding Take/Hold Medications Pre-Procedure : Verbalizes understanding THIERRY GOODRICH RN - 08/22/2018 7:58 EDT General Info Preferred Name : Sy Arrived From : Home Mode of Arrival on Unit : Wheelchair Patient Arrival Date/Time : 08/22/2018 6:15 EDT Legal Guardian : Son Support Person/Patient Occupational Therapist Rehab Manager : Yes Support Person/Pt Rep Name : Sam Dan Barrera Yen Support Person/Pt Rep Contact Information : son Vipul) [phone] (Nancy Rust [phone] Want Family/Rep/Phys Notified of Admit : No Emergency Contact #1 : Sy Emergency Contact #1 Emergency Contact #1 Relationship : son Emergency Contact #2 : . Emergency Contact #2 Phone Number : . Emergency Contact #2 Relationship : . Information Obtained From : Patient Primary Language : Korean Preferred Communication Mode : Verbal Communication Barrier : None Currently Lactating : No Status : N/A THIERRY GOODRICH RN - 08/22/2018 7:49 EDT Vital Measurements Temperature Source : Temporal artery scanning Temperature Mode : Fahrenheit Temperature, Fahrenheit : 97.0 Deg F Clinical Temperature, C : 36.1 Deg C Pulse Method : Pulse Oximetry Pulse Source : Radial, Right Peripheral Pulse Rate : 103 bpm (HI) Pulse Rhythm : Regular Respiratory Rate : 20 Breaths/Min Blood Pressure Location : Arm, left upper Blood Pressure Source : Non-Invasive BP Device Blood Pressure Position : Side, Left Systolic Blood Pressure : 170 mmHg (HI) Diastolic Blood Pressure : 90 mmHg Oxygen Saturation : 96 % Oxygen Therapy Mode : Room air THIERRY GOODRICH RN - 08/22/2018 7:58 EDT Sleep Apnea Risk Assmt BiPAP/CPAP Ordered for Home Use : Yes Hx of Obstructive Sleep Apnea Diagnosis : Yes BiPAP/CPAP Used at Home : Yes Age over 50 Years Old : Yes Gender Male : No THIERRY GOODRICH RN - 08/22/2018 7:58 EDT Jay Scale Jay Sensory Perception : No impairment Jay Moisture : Rarely moist Jay Activity : Walks occasionally Jay Mobility : Slightly limited Jay Nutrition : Excellent Jay Friction and Shear : No apparent problem Jay Score : 21 THIERRY GOODRICH RN - 08/22/2018 7:58 EDT Oxygen Therapy Oxygen Therapy Mode : Room air THIERRY GOODRICH RN - 08/22/2018 7:49 EDT Pain Assessment Pain Assessment : Initial assessment Pain Scale Used : 0-10 Scale THIERRY GOODRICH RN - 08/22/2018 7:49 EDT Fall Risk Scales ABCs Fall Injury Risk Identification : Surgery ABC Fall Injury Risk : Moderate to high injury risk FAY Hx Falls Immediate/Within 3 Months : Yes Fay Secondary Diagnosis : Yes FAY Use of Ambulatory Aid : Crutches/Cane/Walker FAY IV Therapy or IV Access : Yes Fay Gait/Transferring : Normal, bedrest, immobile Christel Mental Status : Oriented to own ability Fay Fall Risk Score : 75 FAY Fall Scale Risk Level : 46 or > High Risk [place] Fall Interventions : Adequate lighting, Assistive devices within reach, Bed in low position, Call device within reach, Hourly comfort/safety rounds, Non-slip footwear, Personal items within reach, Upper side-rails up, Wheels locked Barriers to Learning : None evident Learning Style Preferences Family : Printed materials, Verbal explanation Learning Style Preferences Patient : Printed materials, Verbal explanation TIHERRY GOODRICH RN - 08/22/2018 7:58 EDT Education Topics, Day of Surgery DayofSurgery Education Grid Anesthesia/Sedation : Verbalizes understanding Fall Risks : Verbalizes understanding Family Instructions : Verbalizes understanding IV's : Verbalizes understanding Medication Instructions : Verbalizes understanding Pain Management : Verbalizes understanding Responsible Adult : Verbalizes understanding THIERRY GOODRICH RN - 08/22/2018 8:08 EDT Valuables and Belongings Valuables and Belongings : Clothing, Assistive devices Clothing : Common streetwear Clothing Disposition : With family Assistive Devices From Home : Wheelchair Assistive Device Disposition : With family THIERRY GOODRICH RN - 08/22/2018 7:49 EDT Pain Scale Intensity : 0 THIERRY GOODRICH RN - 08/22/2018 7:49 EDT Image 4 - Images currently included in the form version of this document have not been included in the text rendition version of the form. Nazia Coma [place] Best Motor Response : Obey commands [place] Best Verbal Response : Oriented [place] Eye Opening Response : Spontaneous [place] Coma Score : 15 THIERRY GOODRICH RN - 08/22/2018 7:49 EDT Electronically signed by Maureen Cornejo Conversion Farm Operations Technical Director Cerner at 06/16/2022 8:15 PM CDT documented in this encounter Plan of Treatment Not on file documented as of this encounter Visit Diagnoses Not on filedocumented in this encounter
--- OUTSIDE RECORDS SUMMARY | 2024-08-09 13:26 | XMS_ITS | Encounter Summary ---
Author Organization [employer] Address [address] [place] [address] Care Team Providers Care Jointer Operator Name Role Phone Unavailable Primary Care Provider Unavailabl e Encounter Details Date Type Department Care Team (Late st Contact Info) Description 06/29/2019 Transcribed Document [facility] [place] [place] Family Medicine [address] [place] [address] ProviderMariela MD [address], [place] [id number] Social History Tobacco Use Types Packs/Day Years [...] Conversion Note - Historical ProviderMD - 06/29/2019 5:00 AM CDT Chart Check - Review Order Profile Entered On: 06/29/2019 3:42 EDT Performed On: 06/29/2019 5:00 EDT by Bibi Gallagher RN Chart Check Powerplans Initiated/Discontinued as Appropriate : Yes All Active Orders Reviewed : Yes Bibi Gallagher, EDDIE - 06/29/2019 3:42 EDT documented in this encounter Plan of Treatment Not on file documented as of this encounter Visit Diagnoses Not on filedocumented in this encounter
--- OUTSIDE RECORDS SUMMARY | 2024-08-09 13:26 | XMS_ITS | Encounter Summary ---
Author Organization [employer] Address [address] [place] [address] Care Team Providers Care Petrophysicist Name Role Phone Unavailable Primary Care Provider Unavailabl e Encounter Details Date Type Department Care Team (Late st Contact Info) Description 07/11/2019 Transcribed Document [facility] [place] Family Medicine [address] [place] [address] ProviderMariela MD [address] [place] [address] Social History Tobacco Use Types Packs/Day Years [...] Conversion Note - Historical ProviderMD - 07/11/2019 9:00 AM CDT Pain Assessment Entered On: 07/11/2019 13:33 EDT Performed On: 07/11/2019 10:15 EDT by CAREY OLVERA RN Intervention Information: indomethacin Performed by CAREY OLVERA, RN on 07/11/2019 09:15:00 EDT indomethacin,25mg Oral Pain Assessment Pain Assessment : Follow-up assessment CAREY OLVERA RN - 07/11/2019 13:33 EDT documented in this encounter Plan of Treatment Not on file documented as of this encounter Visit Diagnoses Not on filedocumented in this encounter
--- OUTSIDE RECORDS SUMMARY | 2024-08-09 13:26 | XMS_ITS | Encounter Summary ---
Author Organization [employer] Address [address] [place] [address] Care Team Providers Care Service Station Manager Name Role Phone Unavailable Primary Care Provider Unavailabl e Encounter Details Date Type Department Care Team (Late st Contact Info) Description 06/29/2019 Transcribed Document [facility] [place] Family Medicine [address] [place] [address] ProviderMariela MD [address], [place] [id number] Social History Tobacco Use Types Packs/Day Years [...] Note - Historical ProviderMD - 06/29/2019 5:00 PM CDT Chart Check - Review Order Profile Entered On: 06/29/2019 17:39 EDT Performed On: 06/29/2019 17:00 EDT by JESUS MANUEL CABRAL LPN Chart Check Powerplans Initiated/Discontinued as Appropriate : Yes All Active Orders Reviewed : Yes JESUS MANUEL CABRAL LPN - 06/29/2019 17:38 EDT Electronically signed by Chantal [facility] Conversion Well Drill Operator Cable Tool Cerbryce at 06/16/2022 8:10 PM CDT documented in this encounter Plan of Treatment Not on file documented as of this encounter Visit Diagnoses Not on filedocumented in this encounter
--- OUTSIDE RECORDS SUMMARY | 2024-08-09 13:26 | XMS_ITS | Encounter Summary ---
Author Organization [employer] Address [address] [place] [address] Care Team Providers Care Print Designer Name Role Phone Unavailable Primary Care Provider Unavailabl e Encounter Details Date Type Department Care Team (Late st Contact Info) Description 08/22/2018 Transcribed Document [facility] [place] Family Medicine [facility] [address] ProviderMariela MD [place] [address] Social History Tobacco Use Types [...] Conversion Note - Historical ProviderMD - 08/22/2018 9:38 AM CDT Peripheral Nerve Block Entered On: 08/22/2018 9:39 EDT Performed On: 08/22/2018 9:38 EDT by Iris Beyer Nurse - other Peripheral Nerve Block Site Marked and Visible : Yes Peripheral Nerve Block Start Date/Time : 08/22/2018 7:45 EDT Verbally Confirm Pt, Site, and Procedure : Yes Site Preparation : Chlorhexidine (Hibiclens) Peripheral Nerve Block : Other: adductor canal Laterality : Right Peripheral Nerve Block Performed by : RAMON GRECO DO-ANS Medication Delivery Method : Single Shot Peripheral Nerve Block Assisted by : Iris Beyer Nurse - other Ultra sound used during insertion : Yes Nerve Block Activity, Patient Tolerance : Good Peripheral Nerve Block Comment : pre op nerve block per surgeon request Peripheral Nerve Block End Date/Time : 08/22/2018 8:00 EDT Iris Beyer, Nurse - other - 08/22/2018 9:38 EDT Electronically signed by Chantal, [facility] Conversion Radio Performer Cerner at 06/16/2022 8:13 PM CDT documented in this encounter Plan of Treatment Not on file documented as of this encounter Visit Diagnoses Not on filedocumented in this encounter
--- OUTSIDE RECORDS SUMMARY | 2024-08-09 13:26 | XMS_ITS | Encounter Summary ---
Author Organization [employer] Address [address] [place] [address] Care Team Providers Care Finance Advisor Name Role Phone Unavailable Primary Care Provider Unavailabl e Encounter Details Date Type Department Care Team (Late st Contact Info) Description 06/26/2019 Transcribed Document [facility] [place] Family Medicine [address] [place] [address] ProviderMariela MD [address] [id number] Social History Tobacco Use Types Packs/Day Years [...] Conversion Note - Historical ProviderMD - 06/26/2019 5:00 AM CDT Chart Check - Review Order Profile Entered On: 06/26/2019 3:07 EDT Performed On: 06/26/2019 5:00 EDT by Elizabeth King RN Chart Check Powerplans Initiated/Discontinued as Appropriate : Yes All Active Orders Reviewed : Yes Elizabeth King RN - 06/26/2019 3:07 EDT Electronically signed by Maureen Cornejo Conversion Director Of Donor Relations Cerner at 06/16/2022 8:17 PM CDT documented in this encounter Plan of Treatment Not on file documented as of this encounter Visit Diagnoses Not on filedocumented in this encounter
--- OUTSIDE RECORDS SUMMARY | 2024-08-09 13:26 | XMS_ITS | Encounter Summary ---
Author Organization [employer] Address [address] [place] [address] Care Team Providers Care Gym Manager Name Role Phone Unavailable Primary Care Provider Unavailabl e Encounter Details Date Type Department Care Team (Late st Contact Info) Description 08/22/2018 Transcribed Document [facility] [place] [facility] Family Medicine [facility] [place] [address] ProviderMariela MD [facility] [place] [address] Social History Tobacco Use Types [...] Conversion Note - Historical ProviderMD - 08/22/2018 1:45 PM CDT Treatment Intervention, OT Entered On: 08/24/2018 12:58 EDT Performed On: 08/24/2018 8:59 EDT by EDIN DRAKE, OTR/L General Information, OT Visit Type, OT : Treatment Note Patient Orders : Order Date Order Ordering 08/22/2018 12:14 OT Evaluation and Treatment Ordered By: NIMO EPPS MD-ORAmina 08/22/2018 12:14 OT Treatment Instructions Ordered By: NIMO EPPS MD-ORT 08/22/2018 13:45 Occupational Therapy Additional Tx Ordered By: Active Diagnoses : 08/23/2018 10:34 Presence of right artificial knee joint Admission Date : 08/22/2018 07:12 Assisted by, OT : religious assistant (CENTRIFUGAL SCREEN TENDER) Personal Devices : Personal Devices No Devices Recorded Assistive Devices : Assistive Devices Wheelchair Precautions in Place : Fall prevention measures, high risk EDIN DRAKE OTR/L - 08/24/2018 12:50 EDT General Status Patient Received Status : Supine in bed, Other: polar care, scds Treatment Start Time : 08/24/2018 8:34 EDT Patient Left Status : Other: left seated with CENTRIFUGAL SCREEN TENDER in therapy gym RN/PCT Informed Comment : RN ok'd to tx, ID and verified Treatment End Time : 08/24/2018 8:59 EDT Treatment Time : 25 Minute(s) EDIN DRAKE OTR/L - 08/24/2018 12:50 EDT Self Care/Home Management, OT Lower Body Dressing Assist Level, OT : Assist, moderate Lower Body Dressing Device Comment, OT : mod/max assist to don shorts and underwear, cues for completion Toileting Assist Level : Assist, moderate Toileting Comment : mod/max assist to manage pericare and clothing mgt Toilet Transfer Assist Level : Assist, minimal Toilet Transfer Device : Belt, gait, Commode, bedside, Walker, rolling Toilet Transfer Device Comment : min/mod assist bed to chair , cues for safety Bed/Chair/WC Transfer Assist Level : Assist, minimal Bed/Chair/WC Transfer Device : Belt, gait, Walker, front wheel Bed/Chair/WC Device Comment : transfer w/c to mat and cues safety EDIN DRKAE OTR/L - 08/24/2018 12:50 EDT Mobility Device/Prosthesis/Wt Bearing Weight Bearing Status Maintained : Yes Weight Bearing Status : As tolerated Functional Mobility Device : Gait belt, Walker, front wheel Functional Mobility with Brace/Splint : No Mobility Device/Prosthesis/Wt Bearing Cmnt : pt no longer needs KI while up, ROM ok'd 0-60 degrees EDIN DRAKE OTR/L - 08/24/2018 12:50 EDT Functional Mobility Mobility Grid Supine to Sit : Rehab Minimal assistance Sit to Stand : Rehab Minimal assistance Bed to Chair : Rehab Minimal assistance Stand to Sit : Rehab Minimal assistance EDIN DRAKE OTR/L - 08/24/2018 12:50 EDT Functional MobilityComment : min assist transfers with KI removed to BSC , walks short distance with chair follow CGA using rw and gait belt, w/c to mat transfer min assist EDIN DRAKE OTR/L - 08/24/2018 12:50 EDT Education OT Occupational Therapy Education Grid Activity of Daily Living Training : Returns demonstration, Needs further teaching Functional Mobility Training : Returns demonstration, Needs further teaching VIDALANNEEDINMARY PIERCE/Bartolo - 08/24/2018 12:50 EDT Plan of Care, OT OT Tx Plan/Goals Established w Patient : Yes VIDALANNEEDINMARY PIERCE/Bartolo - 08/24/2018 12:50 EDT Car Wash Attendant Goals, OT Other LTG Grid Goal #1 Goal #2 Goal #3 Goal : pt to perform LB ADL task min assist using AD PRN pt to perform functional ADL transfer min assist at rw level pt /caregiver to verbalize understanding of home safety /car transfer handout Date to Meet : 08/29/2018 EDT 08/29/2018 EDT 08/29/2018 EDT Goal Status : Progressing, continue Goal met Discontinue Date Met : 08/24/2018 EDT Comment : pt discharging to rehab EDIN DRAKE OTR/Bartolo - 08/24/2018 12:50 EDT EDIN DRAKE OTR/Bartolo - 08/24/2018 12:50 EDT EDIN DRAKE OTR/Bartolo - 08/24/2018 12:50 EDT Treatment Note Subjective Comment : pt agrees to tx Additional Objective Information : ADL Assessment : pt met transfer goal, improved now that KI removed . progressing with ADL goal Plan for Treatment : continue POC, pt pending rehab placement VIDAL MARY JESUS/Bartolo - 08/24/2018 12:50 EDT Pain Assessment Pain Scaled Used : 0-10 Pain scale Pain Score Pre-Intervention : 9 Location : Leg, right Pain Comment : RN notified EDIN DRAKE OTR/Bartolo - 08/24/2018 12:50 EDT Image 1 - Images currently included in the form version of this document have not been included in the text rendition version of the form. [facility] OT Charges OT Selfcare/Hm Mgmt Ea 15 Min : 2 EDIN DRAKE OTR/Bartolo - 08/24/2018 12:50 EDT documented in this encounter Plan of Treatment Not on file documented as of this encounter Visit Diagnoses Not on filedocumented in this encounter
--- OUTSIDE RECORDS SUMMARY | 2024-08-09 13:26 | XMS_ITS | Encounter Summary ---
Author Organization [employer] Address [address] [place] [address] Care Team Providers Care Trim Machine Adjuster Name Role Phone Unavailable Primary Care Provider Unavailabl e Encounter Details Date Type Department Care Team (Late st Contact Info) Description 08/22/2018 Transcribed Document [facility] [place] Family Medicine [facility] [place] [address] ProviderMariela MD [facility] [place] [address] Social History Tobacco Use Types [...] Conversion Note - Historical ProviderMD - 08/22/2018 3:00 PM CDT Pain Assessment Entered On: 08/22/2018 17:13 EDT Performed On: 08/22/2018 16:16 EDT by Vianca Morgan RN Intervention Information: acetaminophen Performed by Vianca Morgan RN on 08/22/2018 15:16:00 EDT acetaminophen,1000mg Oral Pain Assessment Pain Assessment : Follow-up assessment Pain Scale Goal : 3 Pain Scale Used : 0-10 Scale Vianca Morgan RN - 08/22/2018 17:13 EDT Pain Scale Intensity : 2 Vianca Morgan RN - 08/22/2018 17:13 EDT Image 4 - Images currently included in the form version of this document have not been included in the text rendition version of the form. documented in this encounter Plan of Treatment Not on file documented as of this encounter Visit Diagnoses Not on filedocumented in this encounter
--- OUTSIDE RECORDS SUMMARY | 2024-08-09 13:26 | XMS_ITS | Encounter Summary ---
Author Organization [employer] Address [address] [place] [address] Care Team Providers Care Staff Interpreter Name Role Phone Unavailable Primary Care Provider Unavailabl e Encounter Details Date Type Department Care Team (Late st Contact Info) Description 08/22/2018 Transcribed Document [facility] [place] [facility] [place] [address] ProviderMariela MD [facility] [place] [address] Social History Tobacco Use Types [...] Conversion Note - Historical ProviderMD - 08/22/2018 9:20 AM CDT Nutrition Assessment Entered On: 08/23/2018 11:50 EDT Performed On: 08/23/2018 11:[address]T [address] Oma Berg [address], MIKE Nutrition Assessment Nutrition Assessment Reason : Automatic referral Oma Berg RD, LD - 08/23/2018 11:48 EDT Nutrition Recommendations Dietitian Recommendations : (08/23) RD consult rec'd for BMI >40. Pt admitted s/p right TKA. RD reviewed chart. Pt is eating 100% of meals recorded on regular diet. LBM 08/21. No skin or GI issues noted. Labs and meds reviewed. No other nutritional diagnosis identified at this time. RD to rescreen in 7-10 days or available prn. Oma Berg RD, LD - 08/23/2018 11:48 EDT documented in this encounter Plan of Treatment Not on file documented as of this encounter Visit Diagnoses Not on filedocumented in this encounter
--- OUTSIDE RECORDS SUMMARY | 2024-08-09 13:26 | XMS_ITS | Encounter Summary ---
Author Organization [employer] Address [address] [place] [address] Care Team Providers Care Retail Event And Sales Assistant Name Role Phone Unavailable Primary Care Provider Unavailabl e Encounter Details Date Type Department Care Team (Late st Contact Info) Description 06/26/2019 Transcribed Document [facility] [place] Family Medicine [address] [place] [address] ProviderMariela MD [address] [place] [address] Social History Tobacco Use Types Packs/Day Years [...] Historical ProviderMD - 06/26/2019 8:17 PM CDT Pain Assessment Entered On: 07/01/2019 22:18 EDT Performed On: 07/01/2019 21:19 EDT by OSMAR AREVALO RN Intervention Information: acetaminophen Performed by OSMAR AREVALO RN on 07/01/2019 20:19:00 EDT acetaminophen,650mg Oral,Other (See Comment) Pain Assessment Pain Assessment : Follow-up assessment Pain Improved by : Medication Pain Improved by Intervention : Yes OSMAR AREVALO RN - 07/01/2019 22:17 EDT documented in this encounter Plan of Treatment Not on file documented as of this encounter Visit Diagnoses Not on filedocumented in this encounter
--- OUTSIDE RECORDS SUMMARY | 2024-08-09 13:26 | XMS_ITS | Encounter Summary ---
Author Organization [employer] Address [address] [place] [address] Care Team Providers Care Career Advisor Name Role Phone Unavailable Primary Care Provider Unavailabl e Encounter Details Date Type Department Care Team (Late st Contact Info) Description 06/26/2019 Transcribed Document [facility] [place] Family Medicine [facility] [place] [address] ProviderMariela MD [facility] [place] [address] Social History Tobacco Use [...] Conversion Note - Historical ProviderMD - 06/26/2019 11:20 AM CDT Attempt to Treat, OT Entered On: 06/26/2019 11:57 EDT Performed On: 06/26/2019 11:20 EDT by ROBERT HAIRSTON OTR/Bartolo Attempt to Treat Unable to Treat Due To : Patient on hold, Patient Refusal Inability to Treat Comment : Attempted 2x: @0925, pt refused therapy stating she was about to receive x1 unit of blood; @1120, RN requested pt HOLD until through receiving unit of blood. Pt scheduled to DC from [facility] at 1700 on this date. Notification : Will attempt again as time permits. ROBERT HAIRSTON OTR/Bartolo - 06/26/2019 11:55 EDT documented in this encounter Plan of Treatment Not on file documented as of this encounter Visit Diagnoses Not on filedocumented in this encounter
--- OUTSIDE RECORDS SUMMARY | 2024-08-09 13:26 | XMS_ITS | Encounter Summary ---
Author Organization [employer] Address [address] [place] [address] Care Team Providers Care Pelt Dropper Name Role Phone Unavailable Primary Care Provider Unavailabl e Encounter Details Date Type Department Care Team (Late st Contact Info) Description 07/11/2019 Transcribed Document [facility] [place] Family Medicine [address] [place] [address] ProviderMariela MD [address] [place] [id number] Social History Tobacco Use Types Packs/Day Years [...] Conversion Note - Historical ProviderMD - 07/11/2019 5:00 AM CDT Chart Check - Review Order Profile Entered On: 07/11/2019 5:07 EDT Performed On: 07/11/2019 5:00 EDT by Georgina Olivo RN Chart Check Powerplans Initiated/Discontinued as Appropriate : Yes All Active Orders Reviewed : Yes Georgina Olivo RN - 07/11/2019 5:07 EDT documented in this encounter Plan of Treatment Not on file documented as of this encounter Visit Diagnoses Not on filedocumented in this encounter
--- OUTSIDE RECORDS SUMMARY | 2024-08-09 13:27 | XMS_ITS | Encounter Summary ---
Author Organization [email or web address] Address [address] [place] [address] Care Team Providers Care Glass Enamel Mixer Name Role Phone Unavailable Primary Care Provider Unavailabl e Encounter Details Date Type Department Care Team (Late st Contact Info) Description 06/26/2019 Transcribed Document [facility] [place] Family Medicine Formerly [facility] [place] [address] ProviderMariela MD [address] [place] [id number] Social History Tobacco Use Types Packs/Day [...] Conversion Note - Historical ProviderMD - 06/26/2019 11:25 AM CDT Patient: SOFIA GILL Age: 79 years Sex: Female : 1940 Associated Diagnoses: Chronic venous insufficiency; Osteoarthritis; Sleep apnea; Sepsis; Left prothetic knee infection status post I&D debridement, washout and poly-exchange I&D , debridement; Hypercholesteremia; Left knee pain; Elevated procalcitonin; Hyperalbuminemia; Morbid obesity with BMI of 40.0-44.9, adult; Hypothyroid; Hypokalemia ,resolved; Hyponatremia resolved; GERD (gastroesophageal reflux disease); HTN (hypertension); Encephalopathy , toxic resolved on discharge; Leucocytosis resolved on discharge; ESR raised resolved; CRP elevated; Left knee cellulitis; Murmur, cardiac; Bacteremia due to group B Streptococcus agalactiae; Acute kidney injury resolved on discharge Author: DONNA DRIVER MD-INT Date of admission: 06/16/2019 Date of discharge: 06/26/2019 On-call orthopedists: Fan Garcia M.D. Primary orthopedist : Riaz Saenz M.D. ID consult: Musa Cornejo M.D., Tyrell Stock M.D. Admitting and discharging physician: Internal medicine, hospital medicine, Donna Driver M.D. Discharge diagnosis 1???sepsis 2???bacteremia due to group B streptococcus agalactiae 3 toxic & Metabolic encephalopathy, resolved on discharge 4 periprosthetic left knee infection status post I&D, debridement, washout, and poly-exchange 5???left knee cellulitis 6???osteoarthritis 7???left knee pain 8???post op Acute blood loss anemia status post transfusion of 3 units of packed RBCs 9???leukocytosis, resolved on dis 10???elevated ESR 11???elevated CRP 12???acute kidney injury, resolved on discharge 13???Hypokalemia, resolved on discharge 14???hyponatremia resolved on discharge 15???hypothyroidism 16???Hypertension 17???hypercholesterolemia 18???heart murmur 19???GERD 20???hypoalbuminemia status post albumin infusion 21???elevated pro-calcitonin on admission 22???morbid obesity with BMI of 40.9 23???obstructive sleep apnea 24???chronic venous insufficiency Admitting diagnosis: 1???periprosthetic left knee infection 2???left knee pain 3???strep agalactiae group B bacteremia 4???left knee cellulitis 5???sepsis 6???increased pro-calcitonin 7???cardiac murmur cannot rule out endocarditis 8???hyponatremia 9???hyperkalemia 10???acute kidney injury 11???leukocytosis 12???elevated ESR 13???elevated CRP 14???SHERRY 15???morbid obesity with BMI of 40.9 16???hypertension Brief history of present illness and course during hosp: 79 years old white female with a complicated medical history as listed below and the multiple comorbidities in addition to multiple left knee surgeries with hardware placement and removal, soft tissue injury and infection was referred from local hospital with increasing left knee pain and swelling, intractable nausea and vomiting and hypotension then she was transferred to [facility] for higher level of care after she had blood cultures that revealed group B Streptococcus bacteremia. On arrival workup revealed an elevated pro-calcitonin, ESR, CRP, leukocytosis while on examination patient had left knee swelling and started empirically on IV antibiotics was vancomycin and Rocephin. She was seen by infectious disease on-call Dr. Cornejo and antibiotics were modified according to his recommendations to Rocephin 2 g IV daily. Then Dr. Tyrell Stock took over the care. Dr. Garcia, from [facility] orthopedics and the on-call orthopedist Did aspiration of her left knee and at that time he recommended amputation of her left lower extremity after he Discussed her condition with Dr. Saenz. Dr. Saenz after several evaluation of the patient, deferred amputation and took patient to the OR and she underwent I&D, the extensive debridement, washout and poly-exchange. Postoperatively, patient was on pain medications as recommended by Dr. Saenz and her pain was well-controlled. Also she was on DVT prophylaxis as per Dr. Saenz protocol. She did not have any trouble with urination and her urine output was adequate. She started on PT/OT and was participating with rehabilitation. After surgery, patient initially was on clear liquid diet which was advanced to regular diet and was tolerating well oral by mouth intake She denied any chest pain, shortness of breath, diaphoresis nausea or vomiting. 1???postoperative acute blood loss anemia, multifactorial, for which patient had a transfusion of 3 units of packed RBCs. 2???sepsis, group B Streptococcus agalactiae bacteremia, Patient was managed by infectious disease and currently she is on Rocephin 2 g IV daily and patient Has to continue for at least 6-8 weeks of IV antibiotics. 3???toxic and a metabolic encephalopathy, Multifactorial secondary to #2, Dehydration, electrolytes abnormalities The resolved completely on discharge 4???acute kidney injury, multifactorial, Infection, nephrotoxic medications, so all nephrotoxic medications had been discontinued. And patient started on aggressive IV as well as oral hydration , Infection treatment so her kidney functions Resolved completely , 5???hypotension with a history of hypertension, most probably secondary to sepsis which improved with aggressive IV and oral hydration and with a blood transfusion and with albumin infusion. 6???leukocytosis, elevated pro-calcitonin, elevated inflammatory markers including ESR and CRP, improved with infection control with antibiotics. 7???electrolytes abnormalities including hyponatremia and hypokalemia. All electrolytes had been replacing his protocol and currently all her electrolytes are within normal range 8???hypoalbuminemia, multifactorial, patient had IV albumin infusion 9???obstructive sleep apnea, patient was on BiPAP during sleep. 10-morbid obesity with BMI of 40.9, patient was on sleep apnea precautions 11???hypothyroidism, Synthroid 100 ??g was given daily 12???hypercholesterolemia, Crestor 10 mg was given daily at bedtime 13???osteoporosis, Caltrate 600 plus D was given twice a day Today, patient is awake alert cooperative responsive under no acute distress and she got the maximum benefit from her hospital stay and as I mentioned she has multiple comorbidities as listed below and above in addition she is unsteady with PT with a high fall risk and she will be transferred to LT[facility] to continue her care and rehabilitation. Patient is stable for discharge. Basic Information Review of Systems Constitutional: No [...] 0.9% 50 mL 2 Gram, IV Piggyback, [id number] cyanocobalamin 1,000 mcg tab 5,000 mcg 5 [...] At Bedtime fluticasone 0.05% nasal spray 2 [place], Nostrils Both, BID LORazepam 2 mg/mL inj [...] Topical, Q1H phenol 1.4% throat spray 1 [place], Oral, Q2H potassium chloride 10 mEq 100 [...] Sleep apnea Physical Examination VS/Measurements Vital Measurements 06/26/2019 9:55 EDT Systolic Blood Pressure 128 mmHg Diastolic Blood Pressure 48 mmHg LOW Mean Arterial Pressure (MAP)-BMDI 65 Temperature Source Oral Temperature Mode Fahrenheit Temperature, Fahrenheit 98.9 Deg F Clinical Temperature, C 37.2 Deg C Heart Rate Monitored 97 bpm Respiratory Rate 16 Breaths/Min Oxygen Saturation 81 % LOW General: Alert and oriented, No acute distress. [...] Review / Management Results review: All Results 06/26/2019 4:30 EDT Sodium Level 138 mmol/L Potassium Level 4.6 mmol/L Chloride Level 106 mmol/L Carbon Dioxide Level 28 mmol/L Anion Gap 9 Glucose Level 97 mg/dL Blood Urea Nitrogen 9 mg/dL Creatinine Level 0.53 mg/dL LOW eGFR >60 mL/min/1.73m2 eGFR [...] % 24.4 % Lymph # 2.42 K/uL [place] % 8.7 % [place] # 0.86 K/uL HI Eos % 2.5 % Eos # 0.25 K/uL Baso % 0.3 % Baso # 0.03 K/uL Sed Rate Auto 20 mm/Hr Slide Review No IG# 0 x10(3)/uL IG% 4 % HI 06/25/2019 3:29 EDT Sodium Level 139 mmol/L Potassium Level 4.6 mmol/L Chloride Level 109 mmol/L Carbon Dioxide Level 24 mmol/L Anion Gap 11 Glucose Level 85 mg/dL Blood Urea Nitrogen 9 mg/dL Creatinine Level 0.46 mg/dL LOW eGFR >60 mL/min/1.73m2 eGFR NonAfrican >60 mL/min/1.73m2 Bun/Creatinine 19.6 Calcium Level 7.3 mg/dL LOW . Condition: Stable. Discharge Plan Discharge Summary Plan Discharge Status: stable. Orders Order Profile (Selected) Inpatient Orders Ordered Discharge Notification Pharmacy: Start: 06/26/19 11:22:00 EDT Discharge: Start: 06/26/19 11:21:00 EDT, [facility] Diagnosis Chronic venous insufficiency - Discharge, Medical. Osteoarthritis - Discharge, Medical. Sleep apnea - Discharge, Medical. Sepsis - Discharge, Medical. Left prothetic knee infection status post I&D debridement, washout and poly-exchange I&D , debridement - Discharge, Medical. Hypercholesteremia - Discharge, Medical. Left knee pain - Discharge, Medical. Elevated procalcitonin - Discharge, Medical. Hyperalbuminemia - Discharge, Medical. Morbid obesity with BMI of 40.0-44.9, adult - Discharge, Medical. Hypothyroid - Discharge, Medical. Hypokalemia ,resolved - Discharge, Medical. Hyponatremia resolved - Admitting, Medical. GERD (gastroesophageal reflux disease) - Discharge, Medical. HTN (hypertension) - Discharge, Medical. Encephalopathy , toxic resolved on discharge - Discharge, Medical. Leucocytosis resolved on discharge - Discharge, Medical. ESR raised resolved - Discharge, Medical. CRP elevated - Admitting, Medical. Left knee cellulitis - Discharge, Medical. Murmur, cardiac - Discharge, Medical. Bacteremia due to group B Streptococcus agalactiae - Discharge, Medical. Acute kidney injury resolved on discharge - Discharge, Medical. Course Improving. Stable. Plan/ pt is HD & CLINICALLY STABLE AFEBRILE OK TO D/C to LT[facility]. Orders Order Profile (Selected) Prescriptions Prescribed cefTRIAXone 2 g injection: 2 Gram, IntraVENous, Daily, X 6 weeks, # 1 Kit, 0 Refill(s), other reason (Rx) Documented Medications Documented Caltrate 600 + D: 1 Tab, Oral, Tab, BID, 0 Refill(s) CoQ10: 1 Tab, Oral, Daily, 0 Refill(s) Colace 100 mg oral capsule: 1 Cap, Oral, Cap, BID, 0 Refill(s) Coumadin 2 mg oral tablet: 1 Tab, Oral, Tab, Daily, 0 Refill(s) Crestor 10 mg oral tablet: 1 Tab, Oral, Tab, At Bedtime, # 30 Tab, 0 Refill(s) Cymbalta 60 mg oral delayed release capsule: 1 Cap, Oral, DR Cap, Daily, (do not crush or chew), # 30 Cap, 0 Refill(s) Diflucan 100 mg oral tablet: 1 Tab, Oral, Tab, Daily, 0 Refill(s) DuoNeb 0.5 mg-2.5 mg/3 mL inhalation solution: 3 mL, Nebulized Inhalation, Inh, RT_Q6H, PRN Shortness of Breath, 0 Refill(s) Florastor 250 mg oral capsule: 1 Cap, Oral, Cap, Daily, 0 Refill(s) Multiple Vitamins oral capsule: Oral, Cap, Daily, 0 Refill(s) Nucynta 50 mg oral tablet: 2 Tab, Oral, Tab, Q6H, PRN Pain (Mild 1-3), 0 Refill(s) Protonix 40 mg oral delayed release tablet: 1 Tab, Oral, EC Tab, Daily, 0 Refill(s) Senokot S: 2 Tab, Oral, Tab, At Bedtime, 0 Refill(s) Synthroid 100 mcg (0.1 mg) oral tablet: 1 Tab, Oral, Tab, Daily, 0 Refill(s) acetaminophen-oxyCODONE 325 mg-5 mg oral tablet: 1.5 Tab, Oral, Tab, Q4H, PRN Pain (Moderate 4-6), 0 Refill(s) cyanocobalamin 5000 mcg oral tablet, extended release: 1 Tab, Oral, Daily, 0 Refill(s) fluticasone 50 mcg/inh nasal spray: 2 [place], Nostrils Both, [place], BID, PRN Allergies, 0 Refill(s) gabapentin 300 mg oral capsule: 1 Cap, Oral, Cap, At Bedtime, 0 Refill(s) lisinopril 10 mg oral tablet: 1 Tab, Oral, Tab, Daily, 0 Refill(s) loratadine 10 mg oral tablet: 1 Tab, Oral, Tab, Daily, 0 Refill(s) magnesium citrate 100 mg oral tablet: 1 Tab, Oral, BID, 0 Refill(s) polyethylene glycol 3350: Oral, Powder, Daily, 0 Refill(s) potassium chloride 20 mEq oral tablet, extended release: 1 Tab, Oral, BID, 0 Refill(s) senna: 8.6 mg, Oral, Tab, At Bedtime, PRN Constipation, 0 Refill(s). Impression and Plan twt 65 mn documented in this encounter Plan of Treatment Not on file documented as of this encounter Visit Diagnoses Not on filedocumented in this encounter
--- OUTSIDE RECORDS SUMMARY | 2024-08-09 13:27 | XMS_ITS | Encounter Summary ---
Author Organization [employer] Address [address] [place] [address] Care Team Providers Care Weather Stripper Name Role Phone Unavailable Primary Care Provider Unavailabl e Encounter Details Date Type Department Care Team (Late st Contact Info) Description 07/12/2019 Transcribed Document [facility] [place] Family Medicine Formerly [facility] [place] [address] ProviderMariela MD [facility] [place] [address] Social History Tobacco Use Types [...] Conversion Note - Historical ProviderMD - 07/12/2019 7:07 PM CDT Patient: SOFIA BARLOW Age: 79 [...] injury Author: DONNA DRIVER MD-INT Basic Information ???awake alert comfortable, pain under control, no trouble w. urination. ???No new symptoms today ???High spirit ???Participating more with PT/OT Review of Systems [...] 0.9% 50 mL 2 Gram, IV Piggyback, [id number] cyanocobalamin 1,000 mcg tab 5,000 mcg 5 [...] Oral, Q4H fluticasone 0.05% nasal spray 2 [place], Nostrils Both, BID magnesium hydroxide 8% liq [...] Sleep apnea Physical Examination VS/Measurements Vital Measurements 07/12/2019 15:45 EDT Systolic Blood Pressure 115 mmHg Diastolic Blood Pressure 45 mmHg LOW Mean Arterial Pressure (MAP)-BMDI 61 Temperature Source Oral Temperature Mode Fahrenheit Temperature, Fahrenheit 98.4 Deg F Clinical Temperature, C 36.9 Deg C Heart Rate Monitored 88 bpm Respiratory Rate 16 Breaths/Min Oxygen Saturation 96 % General: Alert and oriented, No acute [...] axilla, groin. Musculoskeletal: Normal strength, No swelling, Left lower extremity in a brace. Integumentary: Warm, Intact, No rash, WOUND STABLE. Neurologic: Alert, Oriented, No focal deficits. Psychiatric: Cooperative, Appropriate mood & affect. Review / Management Condition: Fair. Impression and Plan Diagnosis Chronic venous insufficiency [...] renal function, blood glucose, and urine output. General IV antibiotics as recommended by infectious disease. Pain control. DVT prophylaxis. Close monitoring fluid and electrolytes. Fall risk precautions. Sleep apnea precautions. Stress ulcer prophylaxis.. Orders Order Profile (Selected) Inpatient Orders Ordered (Scheduled) CBC w/ Auto Diff: Specimen Type: Blood, AM Draw collect, 07/13/19 4:00:00 EDT, 1-Time, Stop: 07/13/19 4:00:00 EDT, Nurse Collect CMP Comprehensive Metabolic Panel: Specimen Type: Blood, AM Draw collect, 07/13/19 4:00:00 EDT, 1-Time, Stop: 07/13/19 4:00:00 EDT, Nurse Collect. documented in this encounter Plan of Treatment Not on file documented as of this encounter Visit Diagnoses Not on filedocumented in this encounter
--- OUTSIDE RECORDS SUMMARY | 2024-08-09 13:27 | XMS_ITS | Encounter Summary ---
Author Organization [employer] Address [address] [place] [address] Care Team Providers Care Railroad Accountant Name Role Phone Unavailable Primary Care Provider Unavailabl e Encounter Details Date Type Department Care Team (Late st Contact Info) Description 06/27/2019 Transcribed Document [facility] [place] [address] [place] [address] ProviderMariela MD [address] [place] [address] Social History Tobacco Use Types [...] Conversion Note - Historical ProviderMD - 06/27/2019 1:41 PM CDT Treatment Intervention, OT Entered On: 07/13/2019 10:55 EDT Performed On: 07/13/2019 10:05 EDT by NILA RAMAN OTR/L General Information, OT Co-treated by, OT : Physical Therapist NILA RAMAN OTR/Bartolo - 07/13/2019 13:50 EDT Visit Type, OT : Treatment Note NILA RAMAN OTR/Bartolo - 07/13/2019 10:55 EDT Patient Orders : Order Date Order Ordering 06/26/2019 20:17 OT Evaluation and Treatment Ordered By: DONNA DRIVER MD-INT 06/27/2019 13:41 Occupational Therapy Additional Tx Ordered By: Active Diagnoses : 07/04/2019 12:00 Other disorders of plasma-protein metabolism, not elsewhere classified 07/04/2019 12:00 Unspecified protein-calorie malnutrition 06/27/2019 12:00 Acute kidney failure, unspecified 06/27/2019 12:00 Anemia, unspecified 06/27/2019 12:00 Bacteremia 06/27/2019 12:00 Cardiac murmur, unspecified 06/27/2019 12:00 Cellulitis, unspecified 06/27/2019 12:00 Essential (primary) hypertension 06/27/2019 12:00 Gastro-esophageal reflux disease without esophagitis 06/27/2019 12:00 Hypothyroidism, unspecified 06/27/2019 12:00 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 Brace at all times: hip to ankle R LE. NILA RAMAN OTR/Bartolo 07/13/2019 10:55 EDT Admission Date : 06/26/2019 18:33 Personal Devices : Personal Devices Glasses Assistive Devices : Assistive Devices No Devices Recorded NILA RAMAN OTR/Bartolo 07/13/2019 13:[address] : Other: LLE brace AAT's NILA RAMAN OTR/Bartolo - 07/13/2019 10:55 EDT General Status Patient Received Status : Supine in bed Patient Left Status : Up in chair, All needs met and within reach RN/PCT Informed Comment : Caitlyn MORGAN ok'ed tx this AM NILA RAMAN OTR/Bartolo - 07/13/2019 13:50 EDT Treatment Start Time : 07/13/2019 9:33 EDT Treatment End Time : 07/13/2019 10:05 EDT Treatment Time : 32 Minute(s) NILA RAMAN OTR/Bartolo 07/13/2019 10:55 EDT Self Care/Home Management, OT Self Feeding Assist Level, OT : Independent, complete Grooming Assist Level, OT : Independent, complete Bathing Assist Level, OT : Supervision or set-up Bathing Device Comment, OT : Given LH sponge Bathing Comment, OT : Patient reports that she has been completing UB/trunk bathing and staff has been assisting with the rest. States that she uses a LH sponge at home to assist. Declines to complete with therapy. Upper Body Dressing Assist Level, OT : Supervision or set-up Lower Body Dressing Device Comment, OT : Given shift mechanic, states I've been through this before, I don't need to practice anything Lower Body Dressing Comment, OT : states that she does not wear socks at home. States that she won't be wearing pants with this brace, states that she has no interest in practicing LB dressing with therapy or receiving a sock aid. Toilet Transfer Assist Level : Assist, minimal Toilet Transfer Device : Belt, gait, Walker, rolling NILA RAMAN, MARY/Bartolo - 07/13/2019 13:50 EDT Functional Mobility Mobility Grid Bed Roll Left : Supervision/set-up Bed Roll Right : Supervision/set-up Bed Scooting : Rehab Minimal assistance Supine to Sit : Rehab Minimal assistance Sit to Stand : Rehab Minimal assistance Bed to Chair : Supervision/set-up Stand to Sit : Supervision/set-up NILA RAMAN, MARY/L - 07/13/2019 13:50 EDT Bed Comment : came to EOB from supine with bed all the way down- Min A, patient given leg staff physical therapist to assist with practice from full supine to sit. NILA RAMAN OTR/Bartolo - 07/13/2019 13:50 EDT Plan of Care, OT OT Tx Plan/Goals Established w Patient : Yes NILA RAMAN OTR/Bartolo - 07/13/2019 13:50 EDT Retirement Goals, OT Bathing LTG Grid Goal #1 Activity : Bathing, Upper Extremity Assist : Assist, minimal Date to Meet : 07/25/2019 EDT Goal Status : Not met (Comment: Patient refuses, states that she does not need therapy for this [NILA RAMAN, MARY/Bartolo - 07/13/2019 13:50 EDT] ) Comment : * Per Cherie pt is not to take brace off at all. NILA RAMAN, VAHIDR/Bartolo - 07/13/2019 13:50 EDT Dressing, Lower Body LTG Grid Goal #1 Activity : Dressing, Lower Body Assist : Assist, moderate Date to Meet : 07/25/2019 EDT Goal Status : Not met (Comment: Patient refuses. States this is not my first surgery states that she has all equipment at home and has no need to practice this with therapy. [NILA RAMAN, MARY/Bartolo - 07/13/2019 13:50 EDT] ) Comment : * NILA BLAIR, MARY/Bartolo - 07/13/2019 13:50 EDT Toilet Transfer LTG Grid Goal #1 Goal #2 Activity : Toilet Transfer, Stand Pivot Sit Toilet Transfer, Ambulatory Assist : Assist, minimal Supervision or set up Date to Meet : 07/11/2019 EDT 07/25/2019 EDT Goal Status : Goal met Goal met Date Met : 07/11/2019 EDT 07/13/2019 EDT NILA RAMAN OTR/Bartolo - 07/13/2019 13:50 EDT NILA RAMAN OTR/L - 07/13/2019 13:50 EDT Bed Mobility/ Bed Transfer LTG Grid Goal #1 Activity : Bed Mobility/Bed Transfer Assist : Independent, modified Date to Meet : 07/25/2019 EDT Goal Status : Goal met (Comment: Given leg staff physical therapist- Min A from full supine without device. [NILA RAMAN OTR/Bartolo - 07/13/2019 13:50 EDT] ) Date Met : 07/13/2019 EDT NILA RAMAN OTR/Bartolo - 07/13/2019 13:50 EDT Treatment Note Subjective Comment : Agreeable but declines ADLs, states that she has no desire to practice bathing or dressing. States that this isn't her first surgery and that she has done all this before at home with no issue. Patient's Response to Treatment : Resting in chair, no complaints. Additional Objective Information : Adjusted brace to get heel back in position at bed level. From full supine, Min A to sit to EOB (given leg staff physical therapist for future attempts). Stood for toileting hygiene and donning gown. Ambulated out into hallway. with chair follow. Once back to room had long disscussion about ADls in room. Patient is very I at chair level and declines practice at bathing, dressing with AE. Patient given LH sponge and shift mechanic as she states she uses these at home. Left [facility] with needs in reach and call light. Assessment : Will sign off. All goals addressed. Patient declines further ADL practice with OT. Will defer to PT for household distances/functional mobility Plan for Treatment : Will sign off at this time. NILA RAMAN OTR/Bartolo - 07/13/2019 13:50 EDT Pain Assessment Pain Comment : pain with brace discomfort. did not rate NILA RAMAN OTR/Bartolo - 07/13/2019 13:50 EDT Image 1 - Images currently included in the form version of this document have not been included in the text rendition version of the form. [place] OT Charges OT Selfcare/Hm Mgmt Ea 15 Min : 2 NILA RAMAN OTR/Bartolo - 07/13/2019 13:50 EDT Electronically signed by Maureen Cornejo Conversion Percussion Instrument Tuner Cerner at 06/16/2022 8:29 PM CDT documented in this encounter Plan of Treatment Not on file documented as of this encounter Visit Diagnoses Not on filedocumented in this encounter
--- OUTSIDE RECORDS SUMMARY | 2024-08-09 13:27 | XMS_ITS | Encounter Summary ---
Author Organization [employer] Address [address] [place] [address] Care Team Providers Care Marine Tower Operator Name Role Phone Unavailable Primary Care Provider Unavailabl e Encounter Details Date Type Department Care Team (Late st Contact Info) Description 07/12/2019 Transcribed Document [facility] [place] [address] [place] [address] ProviderMariela MD [address] [place] [address] Social History Tobacco Use Types [...] Conversion Note - Historical ProviderMD - 07/12/2019 9:28 AM CDT Interdisciplinary Rounds Entered On: 07/12/2019 9:29 EDT Performed On: 07/12/2019 9:[address], MIKE Interdisciplinary Rounds Working Summary Patient's Priority Needs : IV abx -> plan 8 wks then transition to PO PT/OT Brace in place-> dressing changed daily Current DRG/LOS : 560 Aftercare, musculoskeletal & connective tissue 21-25 days Anticipated DC 07/21/2019 Dietitian Interdisciplinary Rounds Note : Diet: Regular +magic cup BID + Ensure 1x/day Intake: Avg 80% x 7 meals LBM 5.[address], MIKE - 07/12/2019 9:28 EDT documented in this encounter Plan of Treatment Not on file documented as of this encounter Visit Diagnoses Not on filedocumented in this encounter
--- OUTSIDE RECORDS SUMMARY | 2024-08-09 13:27 | XMS_ITS | Encounter Summary ---
Author Organization [employer] Address [address] [place] [address] Care Team Providers Care Assistive Technology Trainer Name Role Phone Unavailable Primary Care Provider Unavailabl e Encounter Details Date Type Department Care Team (Late st Contact Info) Description 08/20/2020 Transcribed Document [facility] [place] Medicine [facility] [place] [address] ProviderMariela MD [address] [place] [address] Social History Tobacco Use Types [...] Conversion Note - Historical ProviderMD - 08/20/2020 6:05 PM CDT Patient Education Materials Follows: What to expect after the Procedure: After [...] this will decrease swelling ?? Continue doing ???tub time?? with meyer basin [...] or 4 frozen water bottles in the [facility]. ?? Continue to use Incentive Spirometer 10 times an hour while awake for one month to help prevent pneumonia ?? Remove RAJI WRAP and cotton roll on . There is a mepilex dressing on your knee, leave this in place for 2 weeks. Continue to cover this with glad press and seal for showers. If there is any drainage after 7 days, please call the office and let us know. ?? Sleep in the long, meyer knee immobilizer for 10 days. ?? ASA 81mg twice a day for 45 days, Contact a health care provider if: ?? [...] Get help right away if you have: ?? Pain or swelling in your calf or thigh ?? shortness of breath or difficulty breathing ?? chest pain DVT: Blood Clot Blood clots [...] Barley. Bulgur wheat. Millet. Bran muffins. Popcorn. Chinquapin wafer crackers. ?? Vegetables Sweet potatoes. Spinach. Kale. Artichokes. Cabbage. Broccoli. Green peas. Carrots. Squash. ?? Fruits Berries. Pears. Apples. Oranges. Avocados. Prunes and raisins. Dried figs. ?? Meats and Other Protein Sources [place], kidney, call, and soy beans. Split peas. Lentils. Nuts and seeds. ?? Dairy Fiber-fortified yogurt. ?? Beverages Fiber-fortified soy milk. Fiber-fortified orange juice. ?? Other Fiber bars. High-protein foods: To promote healing High-protein foods contain 4 grams (4 g) or more of protein per serving. They include: ?? Beef, ground sirloin (cooked) - 3 oz have 24 g of protein. ?? Cheese (hard) - 1 oz has 7 g of protein. ?? Chicken breast, boneless and skinless (cooked) - 3 oz have 13.4 g of protein. ?? Cottage cheese - 1/2 cup has 13.4 g of protein. ?? Egg - 1 egg has 6 g of protein. ?? Fish, filet (cooked) - 1 oz has 6-7 g of protein. ?? Garbanzo beans (canned or cooked) - 1/2 cup has 6-7 g of protein. ?? Kidney beans (canned or cooked) - 1/2 cup has 6-7 g of protein. ?? Wells (cooked) - 3 oz has 24 g of protein. ?? Milk - 1 cup (8 oz) has 8 g of protein. ?? Nuts (peanuts, pistachios, almonds) - 1 oz has 6 g of protein. ?? Peanut butter - 1 oz has 7-8 g of protein. ?? Pork tenderloin (cooked) - 3 oz has 18.4 g of protein. ?? Pumpkin seeds - 1 oz has 8.5 g of protein. ?? Soybeans (roasted) - 1 oz has 8 g of protein. ?? Soybeans (cooked) - 1/2 cup has 11 g of protein. ?? Soy milk - 1 cup (8 oz) has 5-10 g of protein. ?? Soy or vegetable gray - 1 gray has 11 g of protein. ?? [place] seeds - 1 oz has 5.5 g of protein. ?? Tofu (firm) - 1/2 cup has 20 g of protein. ?? Tuna (canned in water) - 3 oz has 20 g of protein. ?? Yogurt - 6 oz has 8 g of protein. [...] floor. ?? Place frequently used items in sajc-zm-ketsy places ?? Keep electrical cables out of [...] ? Using the bathroom. ? Using household tray room worker or toxic chemicals. ? Touching or taking [...] your foot or ankle. ? Increased pain. Electronically signed by Maureen Cornejo [employer] Flatbed Truck Driver Cerner at 06/16/2022 8:16 PM CDT documented in this encounter Plan of Treatment Not on file documented as of this encounter Visit Diagnoses Not on filedocumented in this encounter
--- OUTSIDE RECORDS SUMMARY | 2024-08-09 13:27 | XMS_ITS | Encounter Summary ---
Author Organization [employer] Address [address] [place] [id number] Care Team Providers Care Corporate Health Consultant Name Role Phone Unavailable Primary Care Provider Unavailabl e Encounter Details Date Type Department Care Team (Late st Contact Info) Description 08/23/2018 Transcribed Document [facility] [place] Medicine [address] [place] [address] ProviderMariela MD [address] [place] [address] Social History Tobacco Use Types Packs/Day Years Used Date Smoking Tobacco: Never Assessed Comments Unknown Sex and Gender Information Value Date Recorded Sex Assigned at Female 09/02/2021 8:57 PM CDT Legal Sex Female 6:58 PM CDT Gender Identity Female 09/02/2021 8:57 PM CDT Sexual Orientation Not on file documented as of this encounter Miscellaneous Notes * Cerner Conversion Note - Historical ProviderMD - 08/23/2018 2:00 AM CDT Painter Hand Details Entered On: 08/23/2018 1:22 EDT Performed On: 08/23/2018 2:00 EDT by Nishi Osuna RN Order Details Transport Mode Order Detail : Wheelchair Isolation Precautions Order Detail : Standard Precautions Order Detail : N/A IV Order Detail : 1 Oxygen Order Detail : 1 Nurse Collect Order Detail : 0 Lift/Transfer : Moderate assist Central Line Order Detail : No Room Service : Not Appropriate Arterial Line : No Nishi Osuna RN - 08/23/2018 1:22 EDT documented in this encounter Plan of Treatment Not on file documented as of this encounter Visit Diagnoses Not on filedocumented in this encounter
--- OUTSIDE RECORDS SUMMARY | 2024-08-09 13:27 | XMS_ITS | Encounter Summary ---
Author Organization [employer] Address [address] [place] [address] Care Team Providers Care Peoplesoft Financials Name Role Phone Unavailable Primary Care Provider Unavailabl e Encounter Details Date Type Department Care Team (Late st Contact Info) Description 07/12/2019 Transcribed Document [facility] [place] [facility] [place] [address] ProviderMariela MD [address] [place] [address] Social History Tobacco Use Types [...] Conversion Note - Historical ProviderMD - 07/12/2019 8:38 AM CDT Care Management Assessment/Plan Entered On: 07/12/2019 8:39 EDT Performed On: 07/12/2019 8:38 EDT by YOANNA ARAUJO RN Care Management Note Care Management Note : Yoanna Araujo 07/12/2019 0830 - faxed clinical review the [facility] at [phone] to request approval for extended ltac services. Auth#[id number], awaiting approval. Care Management Note Report : YOANNA ARAUJO RN - 06/29/19 17:47:08 Yoanna [...] health and she has been to the [place] [facility] and [facility] in the past. She has the following equipment at home: wheel chair, walker, cane and shower chair. Her discharge plan is to go to rehab prior to returning home. PCP: Flavia MARQUEZ [address] [phone] Sem Manager: Dr. Shemar Barger [address] [facility] [address] [facility] [id number]. Clemente Del Rio MD - Rheumatology - [address] [place] [address] Preferences: Home Health: [facility]: no preferences DME: [facility] - [address], [place] [phone] Long-Term: [facility] facility: no preferences Will continue to monitor patient for anticipated discharge needs YOANNA ARAUJO RN - 06/29/19 08:30:20 Yoanna Araujo 06/29/2019 0830 received fax from [facility] with approval for extended ltac coverage with next clinical review due on 07/12/2019. Auth#[id number]. Will continue to follow for anticipated discharge needs. YOANNA ARAUJO RN - 06/28/19 08:35:06 Yoanna Araujo 06/28/2019 0830 Faxed clinical review to [facility] at to request approval for extended Ltac services. Auth#[id number]. Pending Approval. Documentation Status Complete : Yes YOANNA ARAUJO RN - 07/12/2019 8:38 EDT documented in this encounter Plan of Treatment Not on file documented as of this encounter Visit Diagnoses Not on filedocumented in this encounter
--- OUTSIDE RECORDS SUMMARY | 2024-08-09 13:27 | XMS_ITS | Encounter Summary ---
Author Organization [employer] Address [address] [place] [address] Care Team Providers Care Wax Pattern Repairer Name Role Phone Unavailable Primary Care Provider Unavailabl e Encounter Details Date Type Department Care Team (Late st Contact Info) Description 08/20/2020 Transcribed Document [facility] [place] [facility] [place] [address] ProviderMariela MD [address] [place] [address] Social History Tobacco Use Types [...] Historical Provider, - 08/20/2020 4:09 PM CDT [facility] [place] Summary Primary Physician: NIMO EPPS MD-ORT Finalized Date/Time: 08/20/20 20:56:16 Pt. Name: SOFIA BARLOW S /Sex: 1940 Female Med Rec #: [id number] Physician: NIMO EPPS MD-ORT Financial #: [id number] Pt. Type: I Room/Bed: Admit/Disch: 08/20/20 04:48:00 - Institution: [facility] [place] PACU Case Times Entry 1 In PACU I 08/20/20 20:23:00 Ready for PACU 08/20/20 20:56:00 Discharge Discharge from PACU 08/20/20 20:56:00 I Last Modified By: ROBERT Macdonald 08/20/20 20:56:09 [facility] Main OR PACU Case Times Audit 08/20/20 20:56:09 Buyer Planner: LEXA Modifier: LEXA <+> 1 Ready for PACU Discharge <+> 1 Discharge from PACU I Finalized By: ROBERT Macdonald Document Signatures Signed By: ROBERT Macdonald 08/20/20 20:56 Electronically signed by Chantal [facility] Conversion Excellence Manager Cerner at 06/16/2022 8:23 PM CDT documented in this encounter Plan of Treatment Not on file documented as of this encounter Visit Diagnoses Not on filedocumented in this encounter
--- OUTSIDE RECORDS SUMMARY | 2024-08-09 13:27 | XMS_ITS | Encounter Summary ---
Author Organization [employer] Address [address] [place] [address] Care Team Providers Care Financial Services Agent Name Role Phone Unavailable Primary Care Provider Unavailabl e Encounter Details Date Type Department Care Team (Late st Contact Info) Description 06/26/2019 Transcribed Document [facility] [place] [facility] [address] ProviderMariela MD [address] [place] [address] Social History Tobacco Use Types Packs/Day [...] Conversion Note - Mariela ProviderMD - 06/26/2019 1:04 [place] [address] SOFIA GILL :1940 Visit Time:06/16/2019 Your Visit Summary Your Care Team Admitting Physician - DONNA DRIVER MD-INT Attending Physician - DONNA DRIVER MD-INT Your Diagnosis Acute kidney injury resolved on discharge Bacteremia due to group B Streptococcus agalactiae Cellulitis, unspecified, Cellulitis, unspecified, Left knee cellulitis Chronic venous insufficiency CRP elevated Elevated procalcitonin Encephalopathy , toxic resolved on discharge ESR raised resolved GERD (gastroesophageal reflux disease) HTN (hypertension) Hyperalbuminemia Hypercholesteremia Hypokalemia ,resolved Hyponatremia resolved Hypothyroid Left knee pain Left prothetic knee infection status post I&D debridement, washout and poly-exchange I&D , debridement Leucocytosis resolved on discharge Morbid obesity with BMI of 40.0-44.9, adult Murmur, cardiac Osteoarthritis Sepsis Sleep apnea These Are Your Goals wants to be able to walk again. - Not met (Barriers: Pain) To get the infection taken care of and go home. Discharge Vitals Temperature 37.2 ??C Heart Rate (Monitored) 88 Respiratory Rate 16 Blood Pressure 123/51 What to do next Instructions From Your Care Team Discharge Activity: Discharge Activity: Activity as tolerated Diet: Discharge Diet: Resume usual diet as tolerated Follow-Up Appointments Follow Up with Follow up with specialist When Within 2 to 3 days Medications What How Much When Instructions Next Dose acetaminophen-oxyCODONE (acetaminophen-oxyCODONE 325 mg-5 mg oral tablet) 1.5 Tablet(s) Oral Every 4 Hours as needed for Pain (Moderate 4-6) as needed for pain albuterol-ipratropium (DuoNeb 0.5 mg-2.5 mg/ 3 mL inhalation solution) 3 Milliliter(s) Nebulized Inhalation Every 6 Hours as needed for Shortness of Breath as needed calcium-vitamin D (Caltrate 600 + D) 1 Tablet(s) Oral Two Times A Day 9pm cefTRIAXone (cefTRIAXone 2 g injection) 2 Gram(s) IntraVENous Every Day Duration: 6 weeks in the morning docusate (Colace 100 mg oral capsule) 1 Capsule(s) Oral Two Times A Day 9pm docusate-senna (Senokot S) 2 Tablet(s) Oral At Bedtime bedtime fluconazole (Diflucan 100 mg oral tablet) 1 Tablet(s) Oral Every Day in the morning gabapentin (gabapentin 300 mg oral capsule) 1 Capsule(s) Oral At Bedtime bedtime loratadine (loratadine 10 mg oral tablet) 1 Tablet(s) Oral Every Day in the morning multivitamin (Multiple Vitamins oral capsule) Oral Every Day in the morning pantoprazole (Protonix 40 mg oral delayed release tablet) 1 Tablet(s) Oral Every Day in the morning polyethylene glycol 3350 Oral Every Day in the morning saccharomyces boulardii lyo (Florastor 250 mg oral capsule) 1 Capsule(s) Oral Every Day in the morning senna 8.6 Milligram(s) Oral At Bedtime as needed for Constipation as needed at bedtime tapentadol (Nucynta 50 mg oral tablet) 2 Tablet(s) Oral Every 6 Hours as needed for Pain (Mild 1-3) as needed for pain warfarin (Coumadin 2 mg oral tablet) 1 Tablet(s) Oral Every Day in the morning cyanocobalamin (cyanocobalamin 5000 mcg oral tablet, extended release) 1 Tablet(s) Oral Every Day in the morning DULoxetine (Cymbalta 60 mg oral delayed release capsule) 1 Capsule(s) Oral Every Day (do not crush or chew) in the morning fluticasone nasal (fluticasone 50 mcg/ inh nasal spray) 2 Galliano(s) Nostrils Both Two Times A Day as needed for Allergies 6pm levothyroxine (Synthroid 100 mcg (0.1 mg) oral tablet) 1 Tablet(s) Oral Every Day in the morning lisinopril (lisinopril 10 mg oral tablet) 1 Tablet(s) Oral Every Day in the morning magnesium citrate (magnesium citrate 100 mg oral tablet) 1 Tablet(s) Oral Two Times A Day 9pm potassium chloride (potassium chloride 20 mEq oral tablet, extended release) 1 Tablet(s) Oral Two Times A Day 9pm rosuvastatin (Crestor 10 mg oral tablet) 1 Tablet(s) Oral At Bedtime bedtime ubiquinone (CoQ10) 1 Tablet(s) Oral Every Day in the morning Take your medications faithfully. Do NOT skip [...] reaction) sulfa drugs (Itching) Immunizations This Visit influenza virus vaccine, inactivated 06/18/2019 Education Materials What to expect after the [...] one month to help prevent pneumonia ??? Cover incision with white gauze squares and tube netting. Change daily for 7 days. ??? Please remember to use water and ice or 4 frozen water bottles in the [facility] cube. ??? Contact a health care provider if: ??? [...] Barley. Bulgur wheat. Millet. Bran muffins. Popcorn. [place] wafer crackers. ??? Vegetables Sweet potatoes. Spinach. Kale. Artichokes. Cabbage. Broccoli. Green peas. Carrots. Squash. ??? Fruits Berries. Pears. Apples. Oranges. Avocados. Prunes and raisins. Dried figs. ??? Meats and Other Protein Sources Maybee, kidney, call, and soy beans. Split peas. [...] gray has 11 g of protein. ??? [place] seeds ??? 1 oz has 5.5 g [...] floor. ??? Place frequently used items in jeao-or-nbjbc places ??? Keep electrical cables out of [...] ? Using the bathroom. ? Using household mutuel clerk or toxic chemicals. ? Touching or taking [...] your foot or ankle. ? Increased pain. How to Use a Walker How to [...] To Walk With a Standard Walker: 1. plastering supervisor your walker. Do not slide your [...] 02/15/2006 Document Revised: 07/15/2016 Document Reviewed: 08/30/2015 [employer] Interactive Patient Education ?? 2019 [employer] Inc[employer] Emergency Awareness and Preventative Care STROKE is [...] Assistance with quitting is available by contacting 3-841-GCPI-NOW. This is a free resource providing counseling, [...] This Visit (last charted value for your 06/16/2019 visit) Blood Gases 06/21/2019 4:41 AM HCO3 Art: 22.3 mmol/L -- Normal range between ( 20.0 and 26.0 ) sO2 Art: 95.8 % -- Normal range between ( 95.0 and 100.0 ) pCO2 Art: 34.2 mmHg -- Normal range between ( 35.0 and 45.0 ) pH Art: 7.43 -- Normal range between ( 7.35 and 7.45 ) pO2 Art: 90.3 mmHg -- Normal range between ( 80.0 and 100.0 ) ABG Num of Draw Attempts: 1 Acceptable Montrell's Test Art: Acceptable BE Art: -1.0 mmol/L FIO2 Art: 28.0 Oxygen Flow Rate Art: 2.0 Liter Delivery Device Type Art: CPAP tHb Art: 10.9 Gram/dL -- Normal range between ( 12.0 and 18.0 ) Temperature, F Art: 98.6 Deg F CPAP/PEEP Art: 9.0 cmH2O ctO2: 14.5 mmol/L Art Blood Gas (ABG) Site: Right Radial Hematology 06/26/2019 4:30 AM WBC: 9.9 K/uL -- Normal range between ( 3.9 and 10.0 ) RBC: 2.51 Million/uL -- Normal range between ( 3.93 and 5.22 ) Hct: 24.4 % -- Normal range between ( 34.1 and 44.9 ) Hgb: 7.6 Gram/dL -- Normal range between ( 11.2 and 15.7 ) Platelet Count: 406 K/uL -- Normal range between ( 163 and 369 ) MCH: 30.3 pg -- Normal range between ( 25.6 and 32.2 ) MCHC: 31.1 Gram/dL -- Normal range between ( 32.3 and 36.5 ) MCV: 97.2 fL -- Normal range between ( 79.0 and 94.8 ) Slide Review: No Eos %: 2.5 % -- Normal range between ( 1.0 and 7.0 ) [place] #: 0.86 K/uL -- Normal range between ( 0.24 and 0.82 ) Eos #: 0.25 K/uL -- Normal range between ( 0.04 and 0.54 ) [place] %: 8.7 % -- Normal range between ( 4.7 and 12.5 ) Sed Rate Auto: 20 mm/Hr -- Normal range between ( 0 and 30 ) Baso %: 0.3 % -- Normal range between ( 0.0 and 1.0 ) Baso #: 0.03 K/uL -- Normal range between ( 0.01 and 0.08 ) RDW: 13.2 % -- Normal range between ( 11.6 and 14.4 ) Neut %: 60.5 % -- Normal range between ( 34.0 and 71.0 ) Neut #: 5.98 K/uL -- Normal range between ( 1.56 and 6.13 ) Lymph %: 24.4 % -- Normal range between ( 19.3 and 53.0 ) Lymph #: 2.42 K/uL -- Normal range between ( 1.18 and 3.74 ) MPV: 8.7 fL -- Normal range between ( 9.4 and 12.4 ) IG#: 0 x10(3)/uL IG%: 4 % -- Normal range between ( 0 and 1 ) 06/23/2019 2:34 AM Myelo Percent Man: 1 % -- Normal range between ( 0 and 1 ) ALYC #: 3 K/uL RBC Morphology: Normal ANC #: 16 K/uL Toxic Granulation: 1+ [place] Percent Man: 6 % -- Normal range between ( 4 and 5 ) Neutrophil Percent Man: 77 % -- Normal range between ( 50 and 65 ) Platelet Ct Estimate: Increased Lymph Percent Man: 16 % -- Normal range between ( 24 and 44 ) 06/22/2019 2:40 AM [place] Percent Man: 3 % -- Normal range between ( 0 and 1 ) 06/20/2019 3:05 AM Band Percent Man: 3 % -- Normal range between ( 5 and 11 ) Urinalysis 06/17/2019 0:16 AM Ur RBC: 0-2 /HPF Urine Nitrite: Negative Urine Leukocyte Esterase: Small Ur Epithelial Cells: None Seen Urine Appearance: Clear Urine Glucose Dipstick: Negative Urine Blood Dipstick: Trace Urine Urobilinogen Dipstick: 0.2 EU/dL -- Normal range between ( 0.2 and 1.0 ) Urine Protein Dipstick: Trace Ur Amorph: 1+ Ur Bacteria: Trace Ur Squamous Epithelial Cells: 0-2 /HPF Urine Color: DK YELLOW Ur Transitional Epi Cells: 0-2 Ur WBC: 0-2 /HPF Urine Ketones Dipstick: Negative Urine pH Dipstick: 5.0 -- Normal range between ( 6.0 and 8.0 ) Urine Bilirubin Dipstick: Small Urine Specific [place]: 1.033 -- Normal range between ( 1.005 and 1.030 ) Urine Type.: U CleanCatch Microbiology 06/21/2019 2:22 PM Anaerobic Culture: See Result Tissue Culture: POS 06/19/2019 3:56 AM Blood Culture: See Result 06/17/2019 9:23 AM Body Fluid Culture: POS 06/17/2019 3:44 AM Enterococcus: Not Detected Listeria monocytogenes: Not Detected Staphylococcus: Not Detected Staphylococcus aureus: Not Detected Streptococcus: Detected Streptococcus agalactiae: Detected Streptococcus pyogenes: Not Detected Streptococcus pneumoniae: Not Detected Acinetobacter baumannii: Not Detected Haemophilus influenzae: Not Detected Neisseria meningitidis: Not Detected Pseudomonas aeruginosa: Not Detected Enterobacteriaceae: Not Detected Enterobacter cloacae complex: Not Detected Escherichia coli: Not Detected Klebsiella oxytoca: Not Detected Klebsiella pneumoniae: Not Detected Proteus: Not Detected Serratia marcescens: Not Detected Danitza albicans: Not Detected Danitza glabrata: Not Detected Danitza krusei: Not Detected Danitza parapsilosis: Not Detected Danitza tropicalis: Not Detected Methicillin resistance: Not Detected Vancomycin resistance: Not Detected KPC: Not Detected 06/17/2019 0:20 AM MRSA Surveillance: See Result 06/17/2019 0:16 AM Urine Culture: See Result Blood Bank 06/26/2019 6:38 AM ABO/Rh: A POS Antibody Screen (Tube): Negative ABSC Crossmatch: Computer XM OK 06/26/2019 5:54 AM RBC Product Ready: RBC Ready # of Units: 2 06/22/2019 11:11 AM TRANSFUSED: TRANSFUSED General Chemistry 06/26/2019 4:30 AM Creatinine Level: 0.53 mg/dL -- Normal range between ( 0.55 and 1.02 ) Sodium Level: 138 mmol/L -- Normal range between ( 136 and 146 ) Potassium Level: 4.6 mmol/L -- Normal range between ( 3.5 and 5.1 ) Chloride Level: 106 mmol/L -- Normal range between ( 102 and 112 ) Carbon Dioxide Level: 28 mmol/L -- Normal range between ( 21 and 32 ) Anion Gap: 9 -- Normal range between ( 9 and 20 ) Bilirubin Total: 0.3 mg/dL -- Normal range between ( 0.2 and 1.3 ) A/G Ratio: 0.9 -- Normal range between ( 1.1 and 2.5 ) ALT: 13 Units/Liter -- Normal range between ( 12 and 78 ) AST: 12 Units/Liter -- Normal range between ( 5 and 37 ) Globulin: 2.7 Gram/dL -- Normal range between ( 1.5 and 4.5 ) Alk Phos: 55 Units/Liter -- Normal range between ( 27 and 136 ) Bun/Creatinine: 17.0 -- Normal range between ( 8.0 and 20.0 ) Calcium Level: 7.6 mg/dL -- Normal range between ( 8.5 and 10.1 ) CRP: 6.2 mg/dL -- Normal range between ( 0.0 and 0.9 ) eGFR : >60 mL/min/1.73m2 eGFR NonAfrican: >60 mL/min/1.73m2 Glucose Level: 97 mg/dL -- Normal range between ( 74 and 106 ) Blood Urea Nitrogen: 9 mg/dL -- Normal range between ( 7 and 22 ) Protein Total: 5.1 Gram/dL -- Normal range between ( 6.4 and 8.2 ) Albumin Level: 2.4 Gram/dL -- Normal range between ( 3.4 and 5.0 ) 06/24/2019 3:39 AM Magnesium Level: 2.2 mg/dL -- Normal range between ( 1.5 and 2.4 ) Phosphorus: 2.5 mg/dL -- Normal range between ( 2.3 and 4.9 ) 06/17/2019 6:39 AM Glucose POC2: 76 mg/dL -- Normal range between ( 70 and 110 ) 06/17/2019 3:44 AM Lactic Acid Level: 1.1 mmol/L -- Normal range between ( 0.4 and 2.0 ) Body Fluid 06/21/2019 12:55 PM Body Fluid Type: Synovial Fl Lymphocytes Body Fluid: 1 % -- Normal range between ( 40 and 80 ) Neutrophils Body Fluid: 99 % Color BF: Red Appearance BF: Bloody Auto RBC BF: 378928 /uL -- Normal range between ( 0 and 08318 ) Auto WBC/Nucleated Cells BF: 71636 /uL -- Normal range between ( 0 and 1000 ) 06/17/2019 9:16 AM Monocytes Body Fluid: 11 Cardiac Specific Markers 06/19/2019 3:49 AM CK: 32 Units/Liter -- Normal range between ( 26 and 192 ) Coagulation 06/24/2019 3:39 AM INR: 1.1 -- Normal range between ( 0.9 and 1.1 ) PT: 11.4 Second(s) -- Normal range between ( 9.6 and 11.5 ) Endocrinology 06/17/2019 3:44 AM Procalcitonin: 6.68 ng/mL -- Normal range between ( 0.00 and 0.05 ) Therapeutic Drugs 06/17/2019 10:47 AM Vancomycin Peak: 25.3 mcg/mL -- Normal range between ( 20.0 and 40.0 ) Diagnostic Radiology 06/23/2019 2:15 PM CR Knee 1 or 2 Vws LT: CR Knee 1 or 2 Vws LT 06/21/2019 4:36 AM CR Chest 1 Vw Portable: CR Chest 1 Vw Portable Echo 06/17/2019 4:28 PM EC Echo Complete: EC Echo Complete Patient Name:SOFIA GILL I have received and understand this information and was given the opportunity to ask questions. Patient/Mems Process Engineer Name: Patient/Mems Process Engineer Signature: Relationship to Patient: Clinician/Hospital Mems Process Engineer Signature: Date: documented in this encounter Plan of Treatment Not on file documented as of this encounter Visit Diagnoses Not on filedocumented in this encounter
--- OUTSIDE RECORDS SUMMARY | 2024-08-09 13:27 | XMS_ITS | Encounter Summary ---
Author Organization [employer] Address [address] [place] [address] Care Team Providers Care Bottom Stainer Name Role Phone Unavailable Primary Care Provider Unavailabl e Encounter Details Date Type Department Care Team (Late st Contact Info) Description 08/20/2020 Transcribed Document [facility] [place] [facility] [place] [address] ProviderMariela MD [address] [place] [address] Social History Tobacco Use Types Packs/Day [...] 8:53 PM CDT Pain Assessment Entered On: 08/21/2020 4:11 EDT Performed On: 08/20/2020 23:16 EDT by Hannah Cardoso RN Intervention Information: traMADol Performed by Hannah Cardoso RN on 08/20/2020 22:16:00 EDT traMADol,50mg Oral Pain Assessment Pain Assessment : Follow-up assessment Pain Scale Goal : 3 Pain Scale Used : 0-10 Scale Hannah Cardoso RN - 08/21/2020 4:11 EDT Pain Scale Intensity : 3 Hannah Cardoso RN - 08/21/2020 4:11 EDT Image 4 - Images currently included in the form version of this document have not been included in the text rendition version of the form. documented in this encounter Plan of Treatment Not on file documented as of this encounter Visit Diagnoses Not on filedocumented in this encounter
--- OUTSIDE RECORDS SUMMARY | 2024-08-09 13:27 | XMS_ITS | Encounter Summary ---
Author Organization [employer] Address [address] [place] [address] Care Team Providers Care Hospice Home Care Coordinator Name Role Phone Unavailable Primary Care Provider Unavailabl e Encounter Details Date Type Department Care Team (Late st Contact Info) Description 07/12/2019 Transcribed Document [facility] [place] [address] [place] [address] ProviderMariela MD [address] [place] [address] Social History Tobacco Use Types [...] Conversion Note - Historical ProviderMD - 07/12/2019 5:00 PM CDT Chart Check - Review Order Profile Entered On: 07/12/2019 18:19 EDT Performed On: 07/12/2019 17:00 EDT by Caitlyn Chauhan Rn Chart Check Powerplans Initiated/Discontinued as Appropriate : Yes All Active Orders Reviewed : Yes Caitlyn Chauhan Rn - 07/12/2019 18:19 EDT Electronically signed by Maureen Cornejo Conversion Information Assurance Engineer Cerner at 06/16/2022 8:05 PM CDT documented in this encounter Plan of Treatment Not on file documented as of this encounter Visit Diagnoses Not on filedocumented in this encounter
--- OUTSIDE RECORDS SUMMARY | 2024-08-09 13:27 | XMS_ITS | Encounter Summary ---
Author Organization [employer] Address [address] [place] [address] Care Team Providers Care Lawn Mower Mechanic Name Role Phone Unavailable Primary Care Provider Unavailabl e Encounter Details Date Type Department Care Team (Late st Contact Info) Description 08/20/2020 Transcribed Document [facility] [place] [facility] [place] [address] ProviderMariela MD [facility] [place] [address] Social History Tobacco Use Types [...] Conversion Note - Historical ProviderMD - 08/20/2020 9:00 PM CDT Pain Assessment Entered On: 08/21/2020 4:11 EDT Performed On: 08/20/2020 23:16 EDT by Hannah Cardoso RN Intervention Information: acetaminophen Performed by Hannah Cardoso RN on 08/20/2020 22:16:00 EDT acetaminophen,1000mg Oral Pain Assessment Pain Assessment [...]
--- OUTSIDE RECORDS SUMMARY | 2024-08-09 13:27 | XMS_ITS | Encounter Summary ---
Author Organization [employer] Address [address] [place] [address] Care Team Providers Care Lawn Technician Name Role Phone Unavailable Primary Care Provider Unavailabl e Encounter Details Date Type Department Care Team (Late st Contact Info) Description 08/25/2020 Transcribed Document [facility] [place] [address] [place] [address] ProviderMariela MD [address] [place], [place] [id number] Social History Tobacco Use Types Packs/Day Years Used Date Smoking Tobacco: Never Assessed Comments Unknown Sex and Gender Information Value Date Recorded Sex Assigned at Female 09/02/2021 8:57 PM CDT Legal Sex Female 6:58 PM CDT Gender Identity Female 09/02/2021 8:57 PM CDT Sexual Orientation Not on file documented as of this encounter Miscellaneous Notes * Cerner Conversion Note - Historical ProviderMD - 08/25/2020 5:00 AM CDT Chart Check - Review Order Profile Entered On: 08/25/2020 5:28 EDT Performed On: 08/25/2020 5:00 EDT by Rayna Carrizales, Rn Chart Check Powerplans Initiated/Discontinued as Appropriate : Yes All Active Orders Reviewed : Yes Rayna Carrizales, Rn - 08/25/2020 5:28 EDT Electronically signed by Chantal [facility] Conversion Director Report Cerner at 06/16/2022 8:28 PM CDT documented in this encounter Plan of Treatment Not on file documented as of this encounter Visit Diagnoses Not on filedocumented in this encounter
--- OUTSIDE RECORDS SUMMARY | 2024-08-09 13:27 | XMS_ITS | Encounter Summary ---
Author Organization [employer] Address [address] [place] [address] Care Team Providers Care Talent Management Manager Name Role Phone Unavailable Primary Care Provider Unavailabl e Encounter Details Date Type Department Care Team (Late st Contact Info) Description 06/26/2019 Transcribed Document [facility] [place] [address] [place] [address] ProviderMariela MD [address] [place], [place] [id number] Social History Tobacco Use Types Packs/Day Years [...] Conversion Note - Historical ProviderMD - 06/26/2019 2:00 AM CDT Store Consultant Details Entered On: 06/26/2019 3:07 EDT Performed On: 06/26/2019 2:00 EDT by Elizabeth King RN Order Details Transport Mode Order Detail : Bed (including specialty) Isolation Precautions Order Detail : Contact precautions Order Detail : N/A IV Order Detail : 1 Oxygen Order Detail : 0 Nurse Collect Order Detail : 0 Lift/Transfer : Moderate assist Central Line Order Detail : Yes Room Service : Not Appropriate Arterial Line : No Elizabeth King RN - 06/26/2019 3:07 EDT documented in this encounter Plan of Treatment Not on file documented as of this encounter Visit Diagnoses Not on filedocumented in this encounter
--- OUTSIDE RECORDS SUMMARY | 2024-08-09 13:27 | XMS_ITS | Encounter Summary ---
Author Organization [employer] Address [address] [place] [address] Care Team Providers Care Landscape Foreman Name Role Phone Unavailable Primary Care Provider Unavailabl e Encounter Details Date Type Department Care Team (Late st Contact Info) Description 07/11/2019 Transcribed Document [facility] [place] [address] [place] [address] ProviderMariela MD [address] [place], [place] [id number] Social History Tobacco Use Types Packs/Day Years [...] Note - Historical ProviderMD - 07/11/2019 9:00 PM CDT Pain Assessment Entered On: 07/12/2019 4:37 EDT Performed On: 07/11/2019 22:11 EDT by Bibi Gallagher RN Intervention Information: indomethacin Performed by Bibi Gallagher RN on 07/11/2019 21:11:00 EDT indomethacin,25mg Oral Pain Assessment Pain Assessment : Follow-up assessment Pain Scale Used : 0-10 Scale Bibi Gallagher RN - 07/12/2019 4:37 EDT Electronically signed by Maureen Cornejo Conversion Chemical Equipment Sales Engineer Cerner at 06/16/2022 8:25 PM CDT documented in this encounter Plan of Treatment Not on file documented as of this encounter Visit Diagnoses Not on filedocumented in this encounter
--- OUTSIDE RECORDS SUMMARY | 2024-08-09 13:27 | XMS_ITS | Encounter Summary ---
Author Organization [employer] Address [address] [place] [address] Care Team Providers Care Engineering Mathematician Name Role Phone Unavailable Primary Care Provider Unavailabl e Encounter Details Date Type Department Care Team (Late st Contact Info) Description 07/10/2019 Transcribed Document [facility] [place] [address] [place] [address] ProviderMariela MD [address] [place] [address] Social History Tobacco Use Types Packs/Day Years [...] Historical ProviderMD - 07/10/2019 9:00 PM CDT Pain Assessment Entered On: 07/10/2019 23:05 EDT Performed On: 07/10/2019 21:54 EDT by Georgina Olivo RN Intervention Information: indomethacin Performed by Georgina Olivo RN on 07/10/2019 20:54:00 EDT indomethacin,25mg Oral Pain Assessment Pain Assessment : Follow-up assessment Pain Improved by Intervention : Yes Georgina Olivo RN - 07/10/2019 23:05 EDT Electronically signed by Maureen Cornejo Conversion Veterinarian Laboratory Animal Care Cerner at 06/16/2022 8:23 PM CDT documented in this encounter Plan of Treatment Not on file documented as of this encounter Visit Diagnoses Not on filedocumented in this encounter
--- OUTSIDE RECORDS SUMMARY | 2024-08-09 13:27 | XMS_ITS | Encounter Summary ---
Author Organization [employer] Address [address] [place] [address] Care Team Providers Care Marketing Program Coordinator Name Role Phone Unavailable Primary Care Provider Unavailabl e Encounter Details Date Type Department Care Team (Late st Contact Info) Description 08/22/2018 Transcribed Document [facility] [place] [facility] [place] [address] ProviderMariela MD [address] [place] [address] Social History Tobacco Use [...] Conversion Note - Historical ProviderMD - 08/22/2018 2:00 PM CDT Initial Discharge Planning Entered On: 08/22/2018 14:04 EDT Performed On: 08/22/2018 14:00 EDT by Charleen Ortiz Social Worker-Cargo Checker Initial Assessment I Previously Documented Living Environment : No qualifying data available. Living Situation : Home Patient Lives With : Alone Is the Patient a Caregiver at Home? : No Emergency Contact #1 : Sy Emergency Contact #1 Emergency Contact #1 Relationship : son Emergency Contact #2 : . Emergency Contact #2 Phone Number : . Emergency Contact #2 Relationship : . Enter Doctors Name : Flavia Gomez NP Does Patient have PCP Listed? : Yes Legal Guardian : No Is Guardianship Needed : No Charleen Ortiz Social Worker-Cargo Checker - 08/22/2018 14:00 EDT Initial Assessment II Sensory and Motor Deficits : Weakness Charleen Ortiz Social Worker-Sulema - 08/22/2018 14:00 EDT Discharge Needs I Anticipated Discharge To, CM : retirement facility Current Home Treatment/Equipment : Current Home Treatment/Equipment No qualifying data available. Charleen Ortiz Social Worker-Sulema - 08/22/2018 14:00 EDT Discharge Needs II Professional Skilled Services : Professional Skilled Services No qualifying data available. Discharge Options Discussed with Patient : Home Health, Short term rehabilitation Charleen Ortiz Social Worker-Sulema - 08/22/2018 14:00 EDT Narrative Note Narrative Note : 08/22 Met with the pt at the bedside. Discussed discharge plan with pt. Pt reports she resides alone and lives in two story home. Pt request referral to [facility], and reports she has been there in past. Referral was made via [employer]. Contacted [facility] liaison and notified her of the referral. Continue to follow... Charleen Ortiz Social Worker-Sulema - 08/22/2018 14:00 EDT documented in this encounter Plan of Treatment Not on file documented as of this encounter Visit Diagnoses Not on filedocumented in this encounter
--- OUTSIDE RECORDS SUMMARY | 2024-08-09 13:27 | XMS_ITS | Encounter Summary ---
Author Organization [employer] Address [address] [place] [address] Care Team Providers Care Shotblaster Name Role Phone Unavailable Primary Care Provider Unavailabl e Encounter Details Date Type Department Care Team (Late st Contact Info) Description 06/27/2019 Transcribed Document [facility] [place] Family Medicine [address] [place] [address] ProviderMariela MD [address] [place], [place] [id number] Social History Tobacco Use Types Packs/Day Years [...] Note - Historical ProviderMD - 06/27/2019 5:00 PM CDT Chart Check - Review Order Profile Entered On: 06/27/2019 15:11 EDT Performed On: 06/27/2019 17:00 EDT by Caitlyn Chauhan Rn Chart Check Powerplans Initiated/Discontinued as Appropriate : Yes All Active Orders Reviewed : Yes Caitlyn Chauhan Rn - 06/27/2019 15:11 EDT documented in this encounter Plan of Treatment Not on file documented as of this encounter Visit Diagnoses Not on filedocumented in this encounter
--- OUTSIDE RECORDS SUMMARY | 2024-08-09 13:27 | XMS_ITS | Encounter Summary ---
Author Organization [employer] Address [address] [place] [address] Care Team Providers Care Farm Specialist Name Role Phone Unavailable Primary Care Provider Unavailabl e Encounter Details Date Type Department Care Team (Late st Contact Info) Description 08/24/2020 Transcribed Document [facility] [place] [facility] [place] [address] ProviderMariela MD [address] [place] [address] Social History Tobacco Use Types Packs/Day [...] Conversion Note - Historical ProviderMD - 08/24/2020 9:00 PM CDT Pain Assessment Entered On: 08/25/2020 0:40 EDT Performed On: 08/24/2020 22:09 EDT by Rayna Carrizales Rn Intervention Information: acetaminophen Performed by Chinyere Littlejohn RN-PATIENT CARE BEDSIDE NON-EXEMPT on 08/24/2020 21:09:00 EDT acetaminophen,1000mg Oral Pain Assessment Pain Assessment [...]
--- OUTSIDE RECORDS SUMMARY | 2024-08-09 13:27 | XMS_ITS | Encounter Summary ---
Author Organization [employer] Address [address] [place] [address] Care Team Providers Care Flight Follower Name Role Phone Unavailable Primary Care Provider Unavailabl e Encounter Details Date Type Department Care Team (Late st Contact Info) Description 06/27/2019 Transcribed Document [facility] [place] [facility] [place] [address] ProviderMariela MD [address] [place] [address] Social History Tobacco Use Types [...] Conversion Note - Historical ProviderMD - 06/27/2019 3:44 PM CDT PLEASE MODIFY BEFORE SIGNING CLINICAL DOCUMENTATION CLARIFICATION FORM: Dear : Alannah Date / Time: 06/27/2019 8247 Please exercise your independent, professional judgment in responding to the clarification form. Clinical indicators are provided on the bottom of this form for your review Please check appropriate box(es): [ ] Active Sepsis is present upon admission to [facility] [ x ] Patient does not have active sepsis upon admission to [facility] but is recovering from sepsis and still receiving treatment [ ] Patient does not have sepsis upon admission to [facility] ] Other diagnosis [ ] Unable to determine Physician Signature: Date/Time: For continuity of documentation, please document condition throughout progress notes and discharge summary. Thank You. To be completed by CDI/Coding staff for physician review: Present Clinical Indicators - Signs / Symptoms / Labs Results and Location in Medical Record [ ] 1 periprosthetic left knee infection, status post I&D, debridement, washout and poly-exchange, culture positive for group B streptococcus agalactiae 2???group B streptococcus agalactiae bacteremia 3???sepsis 4 left knee cellulitis H&P Dr. Jaffe [ ] multiple left knee surges with hardware removal, soft tissue injury and infection and recurrent falls, [place] [facility] [place]. Initially started on IV antibiotics was vancomycin and Rocephin. The patient was taken to OR and had I&D, Debridement , washout, and poly-exchange by Dr. Saenz. H&P Dr. 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 S/p synovial fluid aspiration on 06/16, 118,000 WBC, m - Streptococcus agalactiae bacteremia: cultures positive at OSH, repeats also positive here. TTE negative - Left knee cellulitis: improving 06/27/[address] Montrell Stock 06/27/2019 PN [ ] 06/27/2019 7:00 EDT Systolic Blood Pressure 149 mmHg HI Diastolic Blood Pressure 66 mmHg Temperature Source Oral 99.0 Deg F Clinical Temperature, C 37.2 Deg C Heart Rate Monitored 84 bpm Respiratory Rate 19 Breaths/Min Oxygen Sat 96 % H&P Dr. 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 Stock 06/27/2019 PN [ ] [ ] [ ] CDS/Transportation Department Supervisor Signature: __[email or web address] Date/Time: 06/27/2019 1459 This is a permanent part of the Medical Record Q7 2019 [facility] [employer] [facility] Updated: Electronically signed by Maureen Cornejo Conversion Customer Solutions Architect [employer]ner at 06/16/2022 8:17 PM CDT documented in this encounter Plan of Treatment Not on file documented as of this encounter Visit Diagnoses Not on filedocumented in this encounter
--- OUTSIDE RECORDS SUMMARY | 2024-08-09 13:27 | XMS_ITS | Encounter Summary ---
Author Organization [email or web address] Address [address] [place] [address] Care Team Providers Care Holter Technician Name Role Phone Unavailable Primary Care Provider Unavailabl e Encounter Details Date Type Department Care Team (Late st Contact Info) Description 08/25/2020 Transcribed Document [facility] [place] [facility] [place] [address] ProviderMariela MD [address] [place] [address] Social History Tobacco Use Types Packs/Day [...] Conversion Note - Historical ProviderMD - 08/25/2020 8:26 PM CDT Patient: SOFIA BARLOW Age: 80 [...] pain under control, no trouble w. urination. Had bowel movement Participating with PT/OT Pending insurance approval for rehab Review of [...] Alert and oriented X4. Health Status Allergies: Allergic Reactions (Selected) Medium AmLODIPine- No reactions were documented. Valdecoxib- No reactions were documented. Severity Not Documented Bextra- Itching. Etodolac- Itching. Latex- Itching. Mobic- Itching. Naprosyn- Itching. Penicillin- Shortness of breath. Phentermine- Unknown reaction. Sulfa drugs- Itching., Allergies (10) Active Reaction amLODIPine None Documented [...] EDT Chloraseptic Menthol 1.4% topical spray: 5 [place], Oral, [place], Q2H, PRN for Sore Throat, Routine, Start [...] EDT fluticasone 50 mcg/inh nasal spray: 2 [place], Nostrils Both, [place], BID, PRN for Allergies, Routine, Start 08/20/20 [...] Refill(s) fluticasone 50 mcg/inh nasal spray: 2 [place], Nostrils Both, [place], BID, PRN Allergies, 0 Refill(s) furosemide 40 [...] Oral, Daily fluticasone 0.05% nasal spray 2 [place], Nostrils Both, BID magnesium hydroxide 8% liq [...] Oral, Q4H phenol 1.4% throat spray 5 [place], Oral, Q2H senna 8.6 mg tab 8.6 mg 1 Tab, Oral, At Bedtime traZODone 50 mg tab 50 mg 1 Tab, Oral, At Bedtime Problem list: Medical Cardiac arrhythmia / SNOMED CT 4698975584 / Confirmed Cataract / SNOMED CT 2529302396 / Confirmed Chronic venous insufficiency / SNOMED CT 07870796 / Confirmed Constipation / SNOMED CT 062068486 / Confirmed Edema - BLE / SNOMED CT 129497888 / Confirmed History of obstructive sleep apnea / IMO 05835918 / Confirmed HTN (hypertension) / SNOMED CT 1553603713 / Confirmed Hx: GERD (gastroesophageal reflux disease) / SNOMED CT 7363598224 / Confirmed Hypercholesteremia / SNOMED CT 57699307 / Confirmed Hypothyroid / SNOMED CT 993257524 / Confirmed Kidney cysts right / SNOMED CT 5538536028 / Confirmed Knee pain, bilateral / SNOMED CT 081108286 / Confirmed Lung abnormality right / SNOMED CT 2920793296 / Confirmed Murmur, cardiac / SNOMED CT 8934042732 / Confirmed Osteoarthritis / SNOMED CT 5969654239 / Confirmed Osteoporosis / SNOMED CT 078942799 / Confirmed Pain management / SNOMED CT 170574091 / Confirmed Redness bilateral lower legs / SNOMED CT 4400199826 / Confirmed Seasonal allergies / SNOMED CT 830966433 / Confirmed Shoulder pain, bilateral / SNOMED CT 9155354291 / Confirmed Sleep apnea / SNOMED CT 374086914 / Confirmed, Active Problems (21) Cardiac arrhythmia Cataract Chronic venous insufficiency Constipation Edema - BLE History of obstructive sleep apnea HTN (hypertension) Hx: GERD (gastroesophageal reflux disease) Hypercholesteremia Hypothyroid Kidney cysts right Knee pain, bilateral Lung abnormality right Murmur, cardiac Osteoarthritis Osteoporosis Pain management Redness bilateral lower legs Seasonal allergies Shoulder pain, bilateral Sleep apnea Physical Examination VS/Measurements Vital Measurements 08/25/2020 17:51 EDT Systolic Blood Pressure 121 mmHg Diastolic Blood Pressure 62 mmHg Mean Arterial Pressure (MAP)-BMDI 75 Temperature Source Oral Temperature Mode Fahrenheit Temperature, Fahrenheit 98.8 Deg F Clinical Temperature, C 37.1 Deg C Heart Rate Monitored 92 bpm Respiratory Rate 18 Breaths/Min Oxygen Saturation 97 % Oxygen Therapy Mode Room air General: [...] % 24.3 % Lymph # 2.40 K/uL Jennings % 11.0 % Jennings # 1.09 K/uL HI Eos % 4.0 [...] Diff: Specimen Type: Blood, AM Draw collect, 08/26/20 4:00:00 EDT, 1-Time, Stop: 08/26/20 4:00:00 EDT, Lab Collect CMP Comprehensive Metabolic Panel: Specimen Type: Blood, AM Draw collect, 08/26/20 4:00:00 EDT, 1-Time, Stop: 08/26/20 4:00:00 EDT, Lab Collect. documented in this encounter Plan of Treatment Not on file documented as of this encounter Visit Diagnoses Not on filedocumented in this encounter
--- OUTSIDE RECORDS SUMMARY | 2024-08-09 13:27 | XMS_ITS | Encounter Summary ---
Author Organization [employer] Address [address] [place] [address] Care Team Providers Care Appliquer Name Role Phone Unavailable Primary Care Provider Unavailabl e Encounter Details Date Type Department Care Team (Late st Contact Info) Description 08/25/2020 Transcribed Document [facility] [place] Family Medicine [facility] [place] [address] ProviderMariela MD [address] [place] [address] Social History Tobacco Use Types Packs/Day [...] Conversion Note - Historical ProviderMD - 08/25/2020 4:00 AM CDT Pain Assessment Entered On: 08/25/2020 5:28 EDT Performed On: 08/25/2020 5:12 EDT by Rayna Carrizales Rn Intervention Information: traMADol Performed by Chinyere Littlejohn RN-PATIENT CARE BEDSIDE NON-EXEMPT on 08/25/2020 04:12:00 EDT traMADol,50mg Oral Pain Assessment Pain Assessment : Follow-up assessment Pain Scale Goal : 3 Pain Scale Used : 0-10 Scale Pain Improved by Intervention : Yes Rayna Carrizaels Rn - 08/25/2020 5:28 EDT Pain Scale Intensity : 2 Rayna Carrizales Rn - 08/25/2020 5:28 EDT Image 4 - Images currently included in the form version of this document have not been included in the text rendition version of the form. Electronically signed by Interface, Maureen Conversion It Communications Manager [employer] at 06/16/2022 8:06 PM CDT documented in this encounter Plan of Treatment Not on file documented as of this encounter Visit Diagnoses Not on filedocumented in this encounter
--- OUTSIDE RECORDS SUMMARY | 2024-08-09 13:27 | XMS_ITS | Encounter Summary ---
Author Organization [employer] Address [address] [place] [address] Care Team Providers Care Structural Designer Name Role Phone Unavailable Primary Care Provider Unavailabl e Encounter Details Date Type Department Care Team (Late st Contact Info) Description 07/12/2019 Transcribed Document [facility] [place] Family Medicine [address] [place] [address] ProviderMariela MD [address] [place] [phone] Social History Tobacco Use Types Packs/Day Years [...] Note - Historical ProviderMD - 07/12/2019 5:00 AM CDT Chart Check - Review Order Profile Entered On: 07/12/2019 4:38 EDT Performed On: 07/12/2019 5:00 EDT by Bibi Gallagher RN Chart Check Powerplans Initiated/Discontinued as Appropriate : Yes All Active Orders Reviewed : Yes Bibi Gallagher RN - 07/12/2019 4:38 EDT documented in this encounter Plan of Treatment Not on file documented as of this encounter Visit Diagnoses Not on filedocumented in this encounter
--- OUTSIDE RECORDS SUMMARY | 2024-08-09 13:27 | XMS_ITS | Encounter Summary ---
Author Organization [employer] Address [address] [place] [address] Care Team Providers Care Disc Inspector Name Role Phone Unavailable Primary Care Provider Unavailabl e Encounter Details Date Type Department Care Team (Late st Contact Info) Description 08/20/2020 Transcribed Document [facility] [place] [facility] [place] [address] ProviderMariela MD [address] [place] [address] Social History Tobacco Use Types Packs/Day [...] Conversion Note - Historical ProviderMD - 08/20/2020 11:10 PM CDT Patient: SOFIA GILL Age: 80 years Sex: Female : 1940 Associated Diagnoses: Right knee pain; S/p R TKA revision; Status post quadriceps tendon repair; HTN (hypertension); Hypercholesteremia; Hypothyroid; Chronic venous insufficiency; A. fib; Sleep apnea; Obesity (BMI 30-39.9) Author: DONNA JAFFE MD-INT Date of admission 08/20/2020 Date of consult 08/20/2020 PCP Flavia Gomez NP Orthopedic surgeon Dr. Hameed Hospitalist medicine consult, internal medicine, Donna Jaffe MD Reason for the consult, postoperative medical management Surgery See operative report dictated by Dr. Hameed Admitting diagnosis 1???right knee pain 2???s/p R TKA revision 3???s/p quad tendon repair 4???HTN 5???HLP 6???hypothyroidism 7???A. fib 8???chronic venous insufficiency 9???SHERRY 10???obesity with BMI of 39.1 11???lymphedema History of present illness A pleasant 80 years old white female with a history of HTN, HLP, hypothyroidism, A. fib, chronic venous insufficiency, SHERRY, obesity with BMI of 39.1, lymphedema in addition to history of R TKA and was complaining of right knee pain and was admitted after she had R TKA revision and a quad tendon repair by Dr. Hameed . Patient had surgery and is recovering well is awake alert cooperative responsive under no acute distress and is answering questions appropriately. Currently patient is on femoral nerve block in addition to oral pain medications as per Dr. Hameed recommendations and the pain is well controlled. Patient is on DVT prophylaxis as per Dr. Hameed protocol. Patient has a Castellano catheter and urine output is adequate. Patient is on scheduled bowel regimen. Patient did not started on oral nutrition yet. Patient denies any chest pain, shortness of breath, diaphoresis nausea or vomiting. PT/OT on board. Review of Systems Constitutional: No fever, No chills. Eye: No visual disturbances. Ear/Nose/Mouth/Throat: No nasal congestion, No sore throat. Respiratory: No shortness of breath, No cough. Cardiovascular: No chest pain, No tachycardia. Gastrointestinal: No nausea, No vomiting, No abdominal pain. Genitourinary: No change in urine stream. Hematology/Lymphatics: No bleeding tendency. Endocrine: No polyuria, No cold intolerance, No heat intolerance. Immunologic: Negative. Musculoskeletal: Negative. Integumentary: No rash, No pruritus. Neurologic: No confusion, No numbness, No tingling, No headache. Psychiatric: No anxiety, No depression. All other systems are negative Health Status Allergies: Allergic Reactions (Selected) Medium [...] EDT Chloraseptic Menthol 1.4% topical spray: 5 [place], Oral, [place], Q2H, PRN for Sore Throat, Routine, Start 08/20/20 23:34:00 EDT Colace: 100 mg, Oral, Cap, BID, Routine, Start 08/20/20 21:00:00 EDT, 08/20/20 20:53:00 EDT Crestor: 10 mg, Oral, Tab, At Bedtime, Routine, Start 08/20/20 23:36:00 EDT, 08/20/20 23:36:00 EDT Cymbalta: 60 mg, Oral, DR Cap, Daily, Routine, Start 08/21/20 9:00:00 EDT, [...] for Wheezing, Routine, Start 08/20/20 23:34:00 EDT Milk of Magnesia 8% oral suspension: 15 mL, Oral, Liquid, Q6H, PRN for Constipation, Routine, Start 08/20/20 23:34:00 EDT Mylanta: 30 mL, Oral, Liquid, Q6H, [...] Start 08/21/20 9:00:00 EDT, 08/20/20 20:53:00 EDT Skelaxin: 800 mg, Oral, Tab, TID, PRN for Muscle Spasms, Routine, Start 08/20/20 23:34:00 EDT, 08/20/20 23:34:00 EDT Sodium Chloride 0.9% intravenous solution 1,000 mL: 1,000 mL, Bag Volume (mL) = 1,000, IntraVENous, Rate = 100 mL/Hr, start date 08/20/20 20:53:00 EDT, Routine, X 8 Hour(s), Stop 08/21/20 4:52:00 EDT, 1.96, m2 Sodium Chloride 0.9% intravenous solution 1,000 mL: [...] 08/20/20 20:53:00 EDT cyanocobalamin: 5,000 mcg, Oral, ER Tab, Daily, Routine, Start 08/21/20 9:00:00 EDT, 08/20/20 23:36:00 EDT dexAMETHasone: 10 mg, IV Push, Inj, 1-Time, Routine, Start 08/21/20 9:00:00 EDT, Stop 08/21/20 9:00:00 EDT, 08/21/20 20:23:00 EDT diphenhydrAMINE: 12.5 mg, Oral, Tab, At Bedtime, PRN for Insomnia, Start 08/20/20 21:00:00 EDT docusate calcium: 240 mg, Oral, Cap, Daily, PRN for Constipation, Routine, Start 08/20/20 23:34:00 EDT, 08/20/20 23:34:00 EDT doxycycline monohydrate: 100 mg, Oral, Cap, Q12H, Routine, Start 08/20/20 23:36:00 EDT, Indication: Other-See Comment fentaNYL: 100 mcg, IV Push, Inj, 1-Time, Routine, Start 08/20/20 16:00:00 EDT, Stop 08/20/20 16:00:00 EDT, 08/20/20 15:19:00 EDT fluticasone 50 mcg/inh nasal spray: 100 mcg, 2 [place], Nostrils Both, [place], BID, PRN for Allergies, Routine, Start 08/20/20 [...] extended release: 20 mEq 1 Tab, Oral, ER Tab, BID, Routine, Start 08/20/20 23:36:00 EDT, 08/20/20 23:36:00 EDT senna: 8.6 mg, Oral, Tab, At Bedtime, PRN for Constipation, Routine, Start 08/20/20 20:53:00 EDT, 08/20/20 20:53:00 EDT traMADol: 50 mg, Oral, Tab, Q6H, Routine, Start 08/20/20 20:53:00 EDT, 08/20/20 20:53:00 EDT traZODone: 50 mg, Oral, Tab, At Bedtime, PRN for Insomnia, Routine, Start 08/20/20 23:34:00 EDT, 08/20/20 23:34:00 EDT Incomplete MiraLax oral powder for reconstitution: 1 [place], Oral, Daily, Routine, Start 08/21/20 9:00:00 EDT Multiple Vitamins oral tablet: 1 Tab, Oral, Tab, Daily, Routine, Start 08/21/20 9:00:00 EDT ferrous sulfate 325 mg (65 mg elemental iron) oral delayed release tablet: 325 mg, 1 Tab, Oral, Daily, Routine, Start 08/21/20 9:00:00 EDT Documented Medications Documented Aspir 81 oral [...] Refill(s) fluticasone 50 mcg/inh nasal spray: 2 [place], Nostrils Both, [place], BID, PRN Allergies, 0 Refill(s) furosemide 40 mg oral tablet: 1 Tab, Oral, Daily, 0 Refill(s) lisinopril: 5 mg, Oral, Daily, 0 Refill(s) oxyCODONE: 10 mg, Oral, Q8H, PRN as needed for pain, 0 Refill(s) potassium chloride 20 mEq oral tablet, extended release: 1 Tab, Oral, BID, 0 Refill(s) traMADol: 50 mg, Oral, Q6H, PRN as needed for pain, 0 Refill(s), Home Medications (21) Active Aspir 81 oral [...] Daily fluticasone 50 mcg/inh nasal spray 2 [place], PRN, Nostrils Both, BID furosemide 40 mg [...] mg, PRN, Oral, Q6H Tumerick 500 mg , Medications (43) Active Scheduled: (18) acetaminophen 500 mg tab 1,000 mg 2 Tab, Oral, Q8HInt aspirin EC 81 mg tab 81 mg 1 Tab, Oral, BID cyanocobalamin 5,000 mcg, Oral, Daily dexAMETHasone 20 mg/5 mL inj 10 mg 2.5 mL, IV Push, 1-Time docusate sodium 100 mg cap 100 mg 1 Cap, Oral, BID doxycycline monohydrate 100 mg cap 100 mg 1 Cap, Oral, Q12H DULoxetine 60 mg, Oral, Daily fentaNYL 100 mcg/2 mL inj 100 mcg 2 mL, IV Push, 1-Time furosemide 40 mg tab 40 mg 1 [...] tab 40 mg 1 Tab, Oral, Daily potassium chloride 20 mEq 1 Tab, Oral, BID rosuvastatin 10 mg tab 10 mg 1 Tab, Oral, At Bedtime traMADol 50 mg tab 50 mg 1 Tab, Oral, Q6H Continuous: (2) NaCl 0.9% 1,000 mL 1,000 mL, IntraVENous, 100 mL/Hr NaCl 0.9% 1,000 mL 1,000 mL, IntraVENous, 50 mL/Hr PRN: (23) al hydrox/mag hydrox/simeth 30 mL liq 30 mL, Oral, Q6H albuterol-ipratropium inh 3 mL 3 mL, Nebulized Inhalation, Q4H bisacodyl 10 mg supp 10 mg 1 Supp, Rectal, 1-Time bisacodyl 10 mg supp 10 mg 1 Supp, Rectal, Daily diphenhydrAMINE 25 mg tab 25 mg 1 Tab, Oral, Q4H diphenhydrAMINE 25 mg tab 12.5 mg 0.5 Tab, Oral, At Bedtime diphenhydrAMINE 25 mg tab 25 mg 1 Tab, Oral, On-CALL docusate calcium 240 mg cap 240 mg 1 Cap, Oral, Daily fluticasone 0.05% nasal spray 100 mcg 2 [place], Nostrils Both, BID magnesium hydroxide 8% liq 30 mL 15 mL, Oral, Q6H metaxalone 800 mg tab 800 mg 1 Tab, Oral, TID metoclopramide 10 mg/2 mL inj 5 mg [...] Oral, Q4H phenol 1.4% throat spray 5 [place], Oral, Q2H promethazine 25 mg tab 12.5 mg 0.5 Tab, Oral, Q6H promethazine 25 mg/1 mL inj 12.5 mg 0.5 mL, IV Push, Q6H senna 8.6 mg tab 8.6 mg 1 Tab, Oral, At Bedtime traZODone 50 mg tab 50 mg 1 Tab, Oral, At Bedtime Problem list: Medical Cardiac arrhythmia / SNOMED CT 3409172242 / Confirmed Cataract / SNOMED CT 0333496020 / Confirmed Chronic venous insufficiency / SNOMED CT 33269049 / Confirmed Constipation / SNOMED CT 595826787 / Confirmed Edema - BLE / SNOMED CT 230382191 / Confirmed History of obstructive sleep apnea / IMO 26689949 / Confirmed HTN (hypertension) / SNOMED CT 2534864959 / Confirmed Hx: GERD (gastroesophageal reflux disease) / SNOMED CT 3513605371 / Confirmed Hypercholesteremia / SNOMED CT 48496990 / Confirmed Hypothyroid / SNOMED CT 833218095 / Confirmed Kidney cysts right / SNOMED CT 3209453576 / Confirmed Knee pain, bilateral / SNOMED CT 922650171 / Confirmed Lung abnormality right / SNOMED CT 8932570723 / Confirmed Murmur, cardiac / SNOMED CT 3087417466 / Confirmed Osteoarthritis / SNOMED CT 9175629530 / Confirmed Osteoporosis / SNOMED CT 345842221 / Confirmed Pain management / SNOMED CT 209265997 / Confirmed Redness bilateral lower legs / SNOMED CT 0745990833 / Confirmed Seasonal allergies / SNOMED CT 853306811 / Confirmed Shoulder pain, bilateral / SNOMED CT 1157022863 / Confirmed Sleep apnea / SNOMED CT 096551923 / Confirmed, Active Problems (21) Cardiac arrhythmia Cataract Chronic venous insufficiency Constipation Edema - BLE History of obstructive sleep apnea HTN (hypertension) Hx: GERD (gastroesophageal reflux disease) Hypercholesteremia Hypothyroid Kidney cysts right Knee pain, bilateral Lung abnormality right Murmur, cardiac Osteoarthritis Osteoporosis Pain management Redness bilateral lower legs Seasonal allergies Shoulder pain, bilateral Sleep apnea Histories Family History: Family history is significant for DM, HTN, CAD Procedure history: x 2. left TSA. left shoulder ORIF. right RCR. left TKA. revision left TKA. left knee ORIF. lap band. Babak filter. Colonoscopy ([id number]). Social History Patient is and has 2 sons there is no history of smoking or drinking alcohol. Physical Examination VS/Measurements Vital Signs/Vital Measures 08/20/2020 23:01 EDT Heart Rate Monitored 88 bpm Respiratory Rate 18 Breaths/Min Oxygen Saturation 95 % Oxygen Therapy Mode CPAP FiO2 30 % 08/20/2020 20:50 EDT Systolic Blood Pressure 99 mmHg Diastolic Blood Pressure 51 mmHg LOW Mean Arterial Pressure (MAP)-BMDI 71 Heart Rate Monitored 89 bpm Oxygen Saturation 93 % LOW 08/20/2020 20:45 EDT Systolic Blood Pressure 98 mmHg Diastolic Blood Pressure 55 mmHg LOW Mean Arterial Pressure (MAP)-BMDI 70 Heart Rate Monitored 90 bpm Oxygen Saturation 93 % LOW 08/20/2020 20:40 EDT Systolic Blood Pressure 96 mmHg Diastolic Blood Pressure 53 mmHg LOW Mean Arterial Pressure (MAP)-BMDI 71 Heart Rate Monitored 90 bpm Oxygen Saturation 97 % 08/20/2020 20:35 EDT Systolic Blood Pressure 102 mmHg Diastolic Blood Pressure 56 mmHg LOW Mean Arterial Pressure (MAP)-BMDI 72 Heart Rate Monitored 90 bpm Oxygen Saturation 97 % Oxygen Therapy Mode Room air 08/20/2020 20:30 EDT Systolic Blood Pressure 102 mmHg Diastolic Blood Pressure 56 mmHg LOW Mean Arterial Pressure (MAP)-BMDI 72 Heart Rate Monitored 90 bpm Oxygen Saturation 99 % 08/20/2020 20:25 EDT Heart Rate Monitored 89 bpm Oxygen Saturation 97 % 08/20/2020 20:23 EDT Systolic Blood Pressure 102 mmHg Diastolic Blood Pressure 51 mmHg LOW Mean Arterial Pressure (MAP)-BMDI 72 Temperature Source Temporal artery scanning Temperature Mode Fahrenheit Temperature, Fahrenheit 98.1 Deg F Clinical Temperature, C 36.7 Deg C Heart Rate Monitored 83 bpm Oxygen Saturation 97 % Oxygen Therapy Mode Nasal cannula Oxygen Flow Rate 2 Liter/Min 08/20/2020 20:00 EDT Respiratory Rate 16 Breaths/Min 08/20/2020 15:15 EDT Systolic Blood Pressure 138 mmHg Systolic Blood Pressure 138 mmHg Diastolic Blood Pressure 70 mmHg Diastolic Blood Pressure 70 mmHg Peripheral Pulse Rate 103 bpm HI Heart Rate Monitored 103 bpm HI Respiratory Rate 16 Breaths/Min Respiratory Rate 16 Breaths/Min Oxygen Saturation 98 % Oxygen Therapy Mode Nasal cannula Oxygen Flow Rate 2 Liter/Min Vital Measurements Comment post block vitals 08/20/2020 12:07 EDT Blood Pressure Location Arm, left upper Blood Pressure Source Non-Invasive BP Device Blood Pressure Position Side, Right Systolic Blood Pressure 138 mmHg Diastolic Blood Pressure 70 mmHg Temperature Source Temporal artery scanning Temperature Mode Fahrenheit Temperature, Fahrenheit 98.2 Deg F Clinical Temperature, C 36.8 Deg C Pulse Method Pulse Oximetry Pulse Source Radial, Right Pulse Rhythm Regular Peripheral Pulse Rate 102 bpm HI Respiratory Rate 16 Breaths/Min Oxygen Saturation 97 % Oxygen Therapy [...] swelling, No deformity, Normal gait. Integumentary: Warm, Watson, Intact, No pallor, No rash, WOUND STABLE. Neurologic: Alert, Oriented, Normal sensory, Normal motor function, No focal deficits, Cranial Nerves II-XII are grossly intact, Normal deep tendon reflexes. Psychiatric: Cooperative, Appropriate mood & affect, Normal judgment, Non-suicidal. Review / Management Results review: Lab results 08/20/2020 17:08 EDT Fungus Culture See Result (In Progress) 08/20/2020 16:41 EDT Fungus Culture See Result (In Progress) 08/20/2020 16:26 EDT Fungus Culture See Result (In Progress) Fungus Culture See Result (In Progress) 08/20/2020 16:22 EDT Fungus Culture See Result (In Progress) Fungus Culture See Result (In Progress) 08/20/2020 16:17 EDT Body Fluid Type Synovial Fl Color BF Red Appearance BF Bloody Auto WBC/Nucleated Cells BF 1,392 /uL HI Auto RBC BF 931,000 /uL HI Neutrophils Body Fluid 62 % HI Lymphocytes Body Fluid 27 % LOW Monocytes Body Fluid 9 % Eosinophils Body Fluid 2 % Fungus Culture See Result (In Progress) 08/20/2020 13:06 EDT ABO/Rh A POS Antibody Screen Negative ABSC . Impression and Plan Diagnosis Right knee pain - Admitting, Medical. S/p R TKA revision - Admitting, Medical. Status post quadriceps tendon repair - Admitting, Medical. HTN (hypertension) - Admitting, Medical. Hypercholesteremia - Admitting, Medical. Hypothyroid - Admitting, Medical. Chronic venous insufficiency - Admitting, Medical. A. fib - Admitting, Medical. Sleep apnea - Admitting, Medical. Obesity (BMI 30-39.9) - Admitting, Medical. Course: Plan/Respirex @ BS and encourage patient to use. Sleep apnea precautions if needed. C-pap at night if needed. Hold all BP meds if BSP < 130 MMHg. If SBP < 90 mmHg, you may give 500 ml NS IVF over one hour. ACT: CONSULT PT/OT as per Dr. jaime rec. For urinary retention use bladder scanner, you may anchor FC. If no or low UOP you may give 250 mL NS IV over one hour. AM Labs BMP & Hgb/HCT. If pt. spikes fever > 101* F, encourage pt to use Respirex first, then you may give Tylenol 650 mg PO/GA x 1. If no response in 2 hours, you may get blood cx. x2, chest x-ray, sputum CX, S, gram stain x3, UA, C&S. Patient may have chloroseptic spray or throat lozenges for soar throat. DVT prophylaxis. If at any time the HGB is less than 8 type and cross then transfuse 2 units of PRBCs. Premedicate with Tylenol 650 mg PO and Benadryl 25mg PO. Electrolytes Replacement Protocol. Pain control. Close monitoring fluid and electrolytes. Fall risk precautions. Sleep apnea precautions. Stress ulcer prophylaxis. TwT 71 mn patient seen and examined medical record reviewed, vitals reviewed, medications seen reviewed and reconciled, discussed with Pharm.D., discussed with the patient and with the staff, , orders placed, consult note dictated . documented in this encounter Plan of Treatment Not on file documented as of this encounter Visit Diagnoses Not on filedocumented in this encounter
--- OUTSIDE RECORDS SUMMARY | 2024-08-09 13:27 | XMS_ITS | Encounter Summary ---
Author Organization [employer] Address [address] [place] [address] Care Team Providers Care Packaging Engineer Name Role Phone Unavailable Primary Care Provider Unavailabl e Encounter Details Date Type Department Care Team (Late st Contact Info) Description 08/25/2020 Transcribed Document [facility] [place] Family Medicine formerly [facility] [place] [address] ProviderMariela MD [address] [place], [place] [id number] Social History Tobacco Use Types Packs/Day Years [...] Conversion Note - Historical ProviderMD - 08/25/2020 2:00 AM CDT Steam Tunnel Feeder Details Entered On: 08/25/2020 1:31 EDT Performed On: 08/25/2020 2:00 EDT by Rayna Carrizales, Rn Order [...] Crushed/Liquid : No Rayna Carrizales, Rn - 08/25/2020 1:31 EDT documented in this encounter Plan of Treatment Not on file documented as of this encounter Visit Diagnoses Not on filedocumented in this encounter
--- OUTSIDE RECORDS SUMMARY | 2024-08-09 13:27 | XMS_ITS | Encounter Summary ---
Author Organization [employer] Address [address] [place] [address] Care Team Providers Care Cow Washer Name Role Phone Unavailable Primary Care Provider Unavailabl e Encounter Details Date Type Department Care Team (Late st Contact Info) Description 08/22/2018 Transcribed Document [facility] [place] Medicine [facility] [place] [address] ProviderMariela MD [facility] [place] [address] Social History Tobacco Use Types [...] Conversion Note - Historical ProviderMD - 08/22/2018 8:07 AM CDT Patient: SOFIA BARLOW Age: 78 Years Sex: Female : 1940 Discharge Disposition Ortho Discharge Summary Addendum Discharge: Facility Procedure:Right TKA Complications: None DVT Prophylaxis: Aspirin 81 mg tabs, 1 BID for 45 days. Script written, on chart WB Status: WBAT Therapy goals: Hospital ROM Continue Feliz at home all times when not performing PT/HEP TID Prone Hangs, patient shown how to perform CPM machine 0-110 Goal- Knee flexion 110 degrees SYDNI F/U in clinic 2-3 weeks Discharge Instructions: 1)Elevate the knee and the entire lower extremity for as much as possible for 6 weeks and use ice liberally for 30 minutes 3-4 times a day. 2)Patient may shower on the 3rd day after surgery, but must keep the wound or dressing completely dry until shannon are removed. The patient should not take [...] incision uncovered if it is completely dry. Shannon out 2 weeks post op. 6) An [...] as the patient can tolerate. Discharge Medications Caltrate 600 + D 1 Tab, Oral, BID CoQ10 1 Tab, Oral, Daily Crestor 10 mg oral tablet 10 mg = 1 Tab, Oral, At Bedtime cyanocobalamin 5000 mcg oral tablet, extended release 5,000 mcg = 1 Tab, Oral, Daily Cymbalta 60 mg oral delayed release capsule 60 mg = 1 Cap, Oral, Daily fluticasone 50 mcg/inh nasal spray 2 [place], PRN, Nostrils Both, BID Lasix 40 mg [...] 100 mcg = 1 Tab, Oral, Daily Ventolin HFA 90 mcg/inh inhalation aerosol 1 Puff, PRN, Inhalation, QID ASA 81 mg Tabs, 1 PO BID Neurontin 300 mg Tabs, 1qhs Mobic 15mg, 1 qday for 4 weeks Tramadol 50mg tabs, 1-2mg PO q6h PRN Oxycodone 5 mg tabs, 1-2 q4-6h PRN Dilaudid 2mg tabs, 1-2 PO Q6H PRNpain, Rescue Pain Tylenol 1000mg TID documented in this encounter Plan of Treatment Not on file documented as of this encounter Visit Diagnoses Not on filedocumented in this encounter
--- OUTSIDE RECORDS SUMMARY | 2024-08-09 13:27 | XMS_ITS | Encounter Summary ---
Author Organization [employer] Address [address] [place] [address] Care Team Providers Care Certified Nursing Assistant Name Role Phone Unavailable Primary Care Provider Unavailabl e Encounter Details Date Type Department Care Team (Late st Contact Info) Description 08/20/2020 Transcribed Document [facility] [place] [facility] [place] [address] ProviderMariela MD [address] [place], [place] [id number] Social History Tobacco Use Types Packs/Day Years [...] Conversion Note - Historical ProviderMD - 08/20/2020 11:54 PM CDT Education-Wound Care Entered On: 08/21/2020 4:11 EDT Performed On: 08/20/2020 23:54 EDT by Hannah Cardoso RN Teaching/Learning Assessment Barriers To Learning : None evident Individuals Taught : Patient Readiness to Learn : Cooperative Learning Style Preferences Patient : Printed materials, Verbal explanation Learning Style Preferences Family : Printed materials, Verbal explanation Hannah Cardoso RN - 08/21/2020 4:11 EDT Electronically signed by Maureen Cornejo Conversion Felt Cutting Machine Operator Cerbryce at 06/16/2022 8:17 PM CDT documented in this encounter Plan of Treatment Not on file documented as of this encounter Visit Diagnoses Not on filedocumented in this encounter
--- OUTSIDE RECORDS SUMMARY | 2024-08-09 13:27 | XMS_ITS | Encounter Summary ---
Author Organization [employer] Address [address] [place] [address] Care Team Providers Care Inspector Of Dredging Name Role Phone Unavailable Primary Care Provider Unavailabl e Encounter Details Date Type Department Care Team (Late st Contact Info) Description 08/19/2020 Transcribed Document [facility] [place] Family Medicine [address] [place] [address] ProviderMariela MD [address] [place] [address] Social History Tobacco Use Types [...] Conversion Note - Historical ProviderMD - 08/19/2020 3:14 PM CDT UM Authorization Entered On: 08/19/2020 15:15 EDT Performed On: 08/19/2020 15:14 EDT by TIESHA AQUINO RN-Utilization Review Primary Insurance Authorization Authorization and Policy Numbers : Insurance 1 Health Plan: [facility] MEDICARE ADVANTAGE Policy Number: [id number] Authorization Number: Insurance Primary Name : [facility] MEDICARE ADVANTAGE Policy Number: [id number] Authorization Status-Primary : Admit approved Reference Number-Primary : [id number] Authorization Number-Primary : [id number] Number of Days Authorized-Primary : 0 Day(s) Authorized Service Begin Date-Primary : 08/20/2020 EDT Authorized Service End Date-Primary : 08/20/2020 EDT Authorization Comments-Primary : [facility] Medicare approved per website for 1 day Historical Authorization Comments-Primary : No Authorization Comments Found TIESHA AQUINO RN-Utilization Review - 08/19/2020 15:14 EDT documented in this encounter Plan of Treatment Not on file documented as of this encounter Visit Diagnoses Not on filedocumented in this encounter
--- OUTSIDE RECORDS SUMMARY | 2024-08-09 13:27 | XMS_ITS | Encounter Summary ---
Author Organization [employer] Address [address] [place] [address] Care Team Providers Care Project Development Manager Name Role Phone Unavailable Primary Care Provider Unavailabl e Encounter Details Date Type Department Care Team (Late st Contact Info) Description 08/20/2020 Transcribed Document [facility] [place] [facility] [place] [address] ProviderMariela MD [facility] [place] [address] Social History Tobacco Use [...] Conversion Note - Historical ProviderMD - 08/20/2020 2:56 PM CDT Procedural Documentation Entered On: 08/20/2020 14:59 EDT Performed On: 08/20/2020 14:56 EDT by THIERRY GOODRICH, operations welder Documentation Time Out Pause Time : 08/20/2020 14:50 EDT All Activity Suspended : Yes Team Verbally Confirms Information : Correct patient identity, Correct side and site are marked, Consent form is present and accurate, Agreement on the procedure to be done, Correct patient position, Relevant images/results properly labeled/appropriately displayed THIERRY GOODRICH RN - 08/20/2020 14:56 EDT Procedure Performed : R FEMORAL NERVE BLOCK STARTED AT [address] EPPS REQUEST. THIERRY GOODRICH RN - 08/20/2020 14:59 EDT Proper Use of Sterile Apparel per Policy : Yes Procedure Case Attendee : EREN MORILLO MD Procedure Case Attendee Role : Anesthesiologist Procedure Case Attendee Role 2 : RN Monitor Procedure Case Attendee 2 : Viky Gallagher RN Procedure Case Attendee Role 3 : RN Chief Innovation Officer Procedure Case Attendee 3 : THIERRY GOODRICH RN Procedure Case Attendee Role 4 : Observer Procedure Case Attendee 4 : Bridget Jauregui, THIERRY CONTRERAS RN - 08/20/2020 14:56 EDT documented in this encounter Plan of Treatment Not on file documented as of this encounter Visit Diagnoses Not on filedocumented in this encounter
--- OUTSIDE RECORDS SUMMARY | 2024-08-09 13:27 | XMS_ITS | Encounter Summary ---
Author Organization [employer] Address [address] [place] [address] Care Team Providers Care Student Ministries Director Name Role Phone Unavailable Primary Care Provider Unavailabl e Encounter Details Date Type Department Care Team (Late st Contact Info) Description 08/25/2020 Transcribed Document [facility] [place] Family Medicine [address] [place] [address] ProviderMariela MD [address] [place] [id number] Social History Tobacco Use Types Packs/Day Years [...] Note - Historical ProviderMD - 08/25/2020 5:00 PM CDT Chart Check - Review Order Profile Entered On: 08/25/2020 16:44 EDT Performed On: 08/25/2020 17:00 EDT by Didi Villegas, RN Chart Check Powerplans Initiated/Discontinued as Appropriate : Yes All Active Orders Reviewed : Yes Didi Villegas, RN - 08/25/2020 16:44 EDT Electronically signed by Chantal [facility] Conversion Jeep Driver Cerner at 06/16/2022 8:29 PM CDT documented in this encounter Plan of Treatment Not on file documented as of this encounter Visit Diagnoses Not on filedocumented in this encounter
--- OUTSIDE RECORDS SUMMARY | 2024-08-09 13:27 | XMS_ITS | Encounter Summary ---
Author Organization [employer] Address [address] [place] [address] Care Team Providers Care Assembler Name Role Phone Unavailable Primary Care Provider Unavailabl e Encounter Details Date Type Department Care Team (Late st Contact Info) Description 08/20/2020 Transcribed Document [facility] [place] [address] [place] [address] ProviderMariela MD [address] [place] [address] Social History Tobacco Use Types [...] Historical ProviderMD - 08/20/2020 3:22 PM CDT Time Out Documentation Entered On: 08/20/2020 15:22 EDT Performed On: 08/20/2020 15:22 EDT by THIERRY GOODRICH, RN Time Out Documentation Time Out Pause Time : 08/20/2020 15:01 EDT All Activity Suspended : Yes Team Verbally Confirms Information : Correct patient identity, Correct side and site are marked, Consent form is present and accurate, Agreement on the procedure to be done, Correct patient position, Relevant images/results properly labeled/appropriately displayed THIERRY GOODRICH, RN - 08/20/2020 15:22 EDT Electronically signed by Chantal [facility] Conversion Desk Top Publisher Cerner at 06/16/2022 8:26 PM CDT documented in this encounter Plan of Treatment Not on file documented as of this encounter Visit Diagnoses Not on filedocumented in this encounter
--- OUTSIDE RECORDS SUMMARY | 2024-08-09 13:27 | XMS_ITS | Encounter Summary ---
Author Organization [employer] Address [address] [place] [address] Care Team Providers Care Area Supervisor Name Role Phone Unavailable Primary Care Provider Unavailabl e Encounter Details Date Type Department Care Team (Late st Contact Info) Description 07/12/2019 Transcribed Document [facility] [place] [facility] [place] [address] ProviderMariela MD [address] [place] [address] Social History Tobacco Use Types [...] Conversion Note - Historical ProviderMD - 07/12/2019 12:15 PM CDT Care Management Assessment/Plan Entered On: 07/12/2019 12:19 EDT Performed On: 07/12/2019 12:15 EDT by СВЕТЛАНА WANG Care Management Note Care Management Note : 07/12/2019 Fax received from [facility] with approval for LTAC services with a request for updated discharge plans and clinical info to support needs if not discharged. Auth#[id number]. Clinical review or discharge summary to be faxed by 07/17/2019. Care Management Note Report : YOANNA ARAUJO RN - 07/12/19 08:39:48 Yoanna Araujo 07/12/2019 0830 - faxed clinical review the [facility] at [phone] to request approval for extended ltac services. Auth#[id number], awaiting approval. YOANNA ARAJUO RN - 06/29/19 17:47:08 Yoanna Araujo 06/29/2019 [...] health and she has been to the [place] [facility] and [facility] in the past. She has the following equipment at home: wheel chair, walker, cane and shower chair. Her discharge plan is to go to rehab prior to returning home. PCP: Flavia MARQUEZ [address] [place] [address] Flower Grower: Dr. Shemar Barger [address] [address] [address] Clemente Del Rio MD - Rheumatology - [address] [place], [place] [id number] Preferences: Home Health: [facility]: no preferences DME: [facility] - [address], [place] [phone] Detention: [place] [facility] facility: no preferences Will continue to monitor patient for anticipated discharge needs YOANNA ARAUJO RN - 06/29/19 08:30:20 Yoanna Araujo 06/29/2019 0830 received fax from [facility] with approval for extended ltac coverage with next clinical review due on 07/12/2019. Auth#[id number]. Will continue to follow for anticipated discharge needs. YOANNA ARAUJO RN - 06/28/19 08:35:06 Yoanna Araujo 06/28/2019 0830 Faxed clinical review to [facility] at to request approval for extended Ltac services. Auth#[id number]. Pending Approval. Documentation Status Complete : Yes СВЕТЛАНА WANG - 07/12/2019 12:15 EDT documented in this encounter Plan of Treatment Not on file documented as of this encounter Visit Diagnoses Not on filedocumented in this encounter
--- OUTSIDE RECORDS SUMMARY | 2024-08-09 13:27 | XMS_ITS | Encounter Summary ---
Author Organization [employer] Address [address] [place] [address] Care Team Providers Care Student Assistance Counselor Name Role Phone Unavailable Primary Care Provider Unavailabl e Encounter Details Date Type Department Care Team (Late st Contact Info) Description 06/26/2019 Transcribed Document [facility] [place] [facility] [place] [address] ProviderMariela MD [facility] [address], [place] [id number] Social History Tobacco Use Types Packs/Day Years [...] Conversion Note - Historical ProviderMD - 06/26/2019 4:00 PM CDT Discharge Summary, PT Entered On: 06/29/2019 6:41 EDT Performed On: 06/26/2019 16:00 EDT by TOR MEJIA, PT Discharge Summary Reason for Discharge : Discharged from hospital Discharged to, Therapy : intermediate [facility] ([facility] Discharge Summary Comment, PT : 0/3 acute PT goals met - did not progress as expected. Mod A x 2 supine to sit Mod A x 2 sit to stand Able to take a few steps with RWx bed to chair with Mod A x 2 Brace on L LE D/C to LTACH at [facility] for continued care and rehab on 06/26/19. TOR MEJIA, PT - 06/29/2019 6:39 EDT Roller Coaster Designer Goals Other PT LTG Grid Goal #1 [...] 06/29/2019 EDT 07/09/2019 EDT Goal Status : Not met Not met Not met TOR MEJIA, PT - 06/29/2019 6:39 EDT TOR MEJIA, PT - 06/29/2019 6:39 EDT TOR MEJIA, PT - 06/29/2019 6:39 EDT documented in this encounter Plan of Treatment Not on file documented as of this encounter Visit Diagnoses Not on filedocumented in this encounter
--- OUTSIDE RECORDS SUMMARY | 2024-08-09 13:27 | XMS_ITS | Encounter Summary ---
Author Organization [employer] Address [address] [place] [address] Care Team Providers Care Construction Technology Instructor Name Role Phone Unavailable Primary Care Provider Unavailabl e Encounter Details Date Type Department Care Team (Late st Contact Info) Description 08/20/2020 Transcribed Document [facility] [place] [facility] [place] [address] ProviderMariela MD [facility] [place] [address] Social History Tobacco Use [...] Conversion Note - Historical Provider, - 08/20/2020 4:48 AM CDT Admission History, Adult Entered On: 08/20/2020 21:36 EDT Performed On: 08/20/2020 21:36 EDT by Hannah Cardoso RN Advance Directive Patient has Advance Directive *Q : No, patient refuses Advance Directive information Hannah Cardoso RN - 08/20/2020 21:31 EDT Anesthesia/Transfusion History Family History of Anesthesia Reaction : Prior transfusion without reaction Transfusion History : Prior anesthesia without reaction Family History of Anesthesia Reaction : None Hannah Cardoso RN - 08/20/2020 21:31 EDT Anticipated Discharge Needs Discharge To, Anticipated : Home Hannah Cardoso RN - 08/20/2020 21:31 EDT Education Topics, Admission Orientation DCP GENERIC [...] Verbalizes understanding Visiting Policy : Verbalizes understanding Hannah Cardoso RN - 08/20/2020 21:31 EDT Functional Assessment Living Situation : Home Patient Lives With : Alone Current Home Treatments : CPAP Hannah Cardoso RN - 08/20/2020 21:31 EDT General Info Preferred Name : Enrique Arrived From : Home Mode of Arrival on Unit : Wheelchair Legal Guardian : Son Legal Guardian : No Support Person/Patient Farmworker Bulbs : Yes Support Person/Pt Rep Name : Sam Lowe Contact Password : Keily Support Person/Pt Rep Contact Information : son (Sam) [phone] (Nancy Rust [phone] Want Family/Rep/Phys Notified of Admit : No Emergency Contact #1 : Sam Lowe Emergency Contact #1 Emergency Contact #1 Relationship : son Emergency Contact #2 : enrique lowe Emergency Contact #2 Phone Number : [phone] Emergency Contact #2 Relationship : son Information Obtained From : Patient Primary Language : Maldivian Preferred Communication Mode : Verbal Communication Barrier : None Firearms Assembly Supervisor Needed : No Currently Lactating : No Status : N/A Hannah Cardoso RN - 08/20/2020 21:31 EDT Fall Risk Scales ABCs Fall Injury Risk Identification : Age, Bones ABC Fall Injury Risk : Moderate to high injury risk FAY Hx Falls Immediate/Within 3 Months : Yes Fay Secondary Diagnosis : Yes FAY Use of Ambulatory Aid : Crutches/Cane/Walker FAY IV Therapy or IV Access : Yes Fay Gait/Transferring : Weak Fay Mental Status : Oriented to own ability Fay Fall Risk Score : 85 FAY Fall Scale Risk Level : 46 or > High Risk [place] Fall Interventions : Adequate lighting, Assistive devices within reach, Bed in low position, Call device within reach, Frequent orientation to call device, Frequent orientation to surroundings, Hourly comfort/safety rounds, Non-slip footwear, Personal items within reach, Reinforced to call for assistance before getting out of bed, Room free of clutter/spills, Upper side-rails up, Wheels locked, Wires/Cords secured Barriers to Learning : None evident Learning Style Preferences Family : Printed materials, Verbal explanation Learning Style Preferences Patient : Printed materials, Verbal explanation Hannah Cardoso RN - 08/20/2020 21:31 EDT Health Histories Smoking Status : Never (less than 100 in lifetime; none in last 30 days) Smokeless Tobacco Status : Never Hannah Cardoso RN - 08/20/2020 21:31 EDT Social History (As Of: 08/20/2020 21:36:05 EDT) Tobacco: Smoking Status Never smoker. Used Tobacco, but Quit No. (Last Updated: 10/16/2016 11:53:46 EDT by RUI EMMANUEL, EDDIE) Never (less than 100 in lifetime) Smoking Status. Never Smokeless Tobacco Status. (Last Updated: 08/13/2020 10:21:56 EDT by BINDU MOREIRA, RN) Alcohol: Alcohol Use History No. (Last Updated: 10/16/2016 11:53:51 EDT by RUI EMMANUEL, EDDIE) Alcohol Use History No. (Last Updated: 08/13/2020 10:21:56 EDT by BINDU MOREIRA, RN) Substance Abuse: Drug Use Hx: No. Use in Last 12 Months: No. (Last Updated: 10/16/2016 11:53:56 EDT by RUI EMMANUEL, DEDIE) Drug Use Hx: No. (Last Updated: 08/13/2020 10:21:56 EDT by BINDU MOREIRA, RN) Nutrition/Health: Regular, Caffeine intake amount: occassional. [...] Source : Stated Height Entry Format : Wilson Height, Feet : 5 ft(Converted to: 152 cm, 60 Inch) Height, Inches : 0 Inch(Converted to: 0 ft 0 Inch, 0.00 cm) Clinical Height : 152.4 cm Weight Source : Standing scale Weight Entry Format : Wilson Clinical Dosing Weight : 90.91 kg Weight, Pounds : 200 lb Body Surface Area (BSA) : 1.87 m2 Body Mass Index : 39.1 kg/m2 (HI) [place] Body Weight : 45 kg Hannah Cardoso RN - 08/20/2020 21:31 EDT Infectious Disease History Has the patient ever been tested for COVID-19? : Yes, Patient stated results Negative Where was the COVID-19 Testing completed? : [facility] Where are the test results? : Paper Copy on chart Date of COVID-19 test known? : Yes Date of COVID-19 Test : 08/16/2020 EDT Does patient have symptoms of COVID-19? : No COVID19 Screening : No Experiencing Infectious Disease Symptoms : No symptoms Physical contact outside [place] in the last 30 days : No Infectious Disease History : Chicken pox/Shingles, Measles Exposure to Contagious Illness : No Tuberculosis Symptoms : None Hannah Cardoso RN - 08/20/2020 21:31 EDT Tetanus Immunization Status Previous Tetanus Immunizations : No qualifying data available. Tetanus Immunization : Greater than 5 years Hannah Cardoso RN - 08/20/2020 21:31 EDT Influenza Vaccine Asmt, Adult Previous Vaccines from Immunization Schedule : Previous Vaccines and Immunizations influenza virus vaccine, inactivated: 0.5 mL (06/18/19 09:50:00) Influenza Immunization, Current Season : Outside of influenza season Hannah Cardoso RN - 08/20/2020 21:31 EDT Pneumococcal Vaccine Previous Vaccines from Immunization Schedule : Previous Vaccines and Immunizations influenza virus vaccine, inactivated: 0.5 mL (06/18/19 09:50:00) Pneumonia Immunization Received : Yes Hannah Cardoso RN - 08/20/2020 21:31 EDT Order Details Isolation Precautions Order Detail : Standard Precautions Order Detail : N/A IV Order Detail : 1 Oxygen Order Detail : 1 Nurse Collect Order Detail : 0 Lift/Transfer : Moderate assist Central Line Order Detail : Yes Arterial Line : No Patient Needs Meds Crushed/Liquid : No Hannah Cardoso RN - 08/20/2020 21:31 EDT Nutrition History Adaptive Feeding Equipment : Regular Eating Poorly Due to Decreased Appetite : Yes Unplanned Weight Loss in Past 3-6 Months : Yes Unplanned Weight Loss Amount : 2-13 lbs/0.9-5.9 kg Malnutrition Screening Tool Total(mal) : 2 Malnutrition Screening Tool Risk Level : Patient at risk Hannah Cardoso RN - 08/20/2020 21:31 EDT [place] Suicide Severity Rating Scale (C-SSRS) CSSRS Past Month Wish to be : No CSSRS Past Month Suicidal Thoughts : No CSSRS Lifetime Suicide Behavior : No Suicide Severity Rating Score : 0 Suicide Severity Rating : No Additional Care Required at this time Hannah Cardoso RN - 08/20/2020 21:31 EDT Psychosocial History Do You Have a History of the Following? : Patient denies history Currently in Unsafe Situation : No Do You Have a Support System? : Yes Hannah Cardoso RN - 08/20/2020 21:31 EDT Sleep Apnea Risk Assmt BiPAP/CPAP Ordered for Home Use : Yes Hx of Obstructive Sleep Apnea Diagnosis : Yes BiPAP/CPAP Used at Home : Yes Age over 50 Years Old : Yes Gender Male : No Hannah Cardoso RN - 08/20/2020 21:31 EDT Spiritual/Cultural Needs Any Spiritual/Cultural Needs or Requests : No Hannah Cardoso RN - 08/20/2020 21:31 EDT Valuables and Belongings Valuables and Belongings : Clothing Clothing : Common streetwear Clothing Disposition : Bedside, Declines to send to security/safe Hannah Cardoso RN - 08/20/2020 21:31 EDT documented in this encounter Plan of Treatment Not on file documented as of this encounter Visit Diagnoses Not on filedocumented in this encounter
--- OUTSIDE RECORDS SUMMARY | 2024-08-09 13:27 | XMS_ITS | Encounter Summary ---
Author Organization [employer] Address [address] [place] [address] Care Team Providers Care Mobile Equipment Mechanic Name Role Phone Unavailable Primary Care Provider Unavailabl e Encounter Details Date Type Department Care Team (Late st Contact Info) Description 06/27/2019 Transcribed Document [facility] [place] [address] ProviderMariela [place] [address] Social History Tobacco Use Types [...] Conversion Note - Historical ProviderMD - 06/27/2019 11:14 AM CDT Patient: SOFIA GILL Age: 79 years Sex: Female : 1940 Associated Diagnoses: None Author: ARA JONES MD-INF ID Progress Note CC: Left knee pain Current antimicrobial therapy: Rocephin IV Subjective: Patient with no fevers and moved to the [facility] for rehab on ongoing iv abx, some pain and elevated bp Objective Vitals Signs (last 24 hrs) Last Charted Minimum Maximum Temp 99.0 (JUN 26 07:00) 98.7 (JUN 25 23:00) 99.0 (JUN 26 07:00) Mon HR 84 (JUN 26 07:00) 84 (JUN 26 07:00) 86 (JUN 25 18:42) Resp Rate 19 (JUN 26 07:00) 19 (JUN 26 07:00) 20 (JUN 25 18:42) SBP H 149 (JUN 26 07:00) H 149 (JUN 26 07:00) H 166 (JUN 25 18:42) DBP 66 (JUN 26 07:00) 66 (JUN 25 18:42) 69 (JUN 25 23:00) SpO2 96 (JUN 26 07:00) 96 (JUN 25 23:00) 98 (JUN 25 18:42) Physical Examination: Gen: Alert, in no acute [...] H 431 (JUN 26) Na 136 (JUN 26) K 4.6 (JUN 26) Cl 104 (JUN 26) CO2 28 (JUN 26) BUN 9 (JUN 26) Cr 0.60 (JUN 26) Glu R 93 (JUN 26) Ca L 8.1 (JUN 26) AST 15 (JUN 26) ALT L 11 (JUN 26) ALK P 56 (JUN 26) T Bili 0.5 (JUN 26) PTN L 5.9 (JUN 26) ALB L 2.4 (JUN 26) Micro: [facility]: 06/15 [facility] Blood cultures positive for group B [...] and no fevers continue manager terminal abx - crp down - needs rehab and iv abx at the [facility] will follow Electronically signed by Maureen Cornejo Conversion Automotive Service Consultant [employer] at 06/16/2022 8:14 PM CDT documented in this encounter Plan of Treatment Not on file documented as of this encounter Visit Diagnoses Not on filedocumented in this encounter
--- OUTSIDE RECORDS SUMMARY | 2024-08-09 13:27 | XMS_ITS | Encounter Summary ---
Author Organization [employer] Address [address] [place] [address] Care Team Providers Care Log Turner Name Role Phone Unavailable Primary Care Provider Unavailabl e Encounter Details Date Type Department Care Team (Late st Contact Info) Description 08/23/2018 Transcribed Document [facility] [place] [address] [place] [address] ProviderMariela MD [address] [place], [place] [phone] Social History Tobacco Use Types Packs/Day Years [...] Conversion Note - Historical ProviderMD - 08/23/2018 5:00 PM CDT Chart Check - Review Order Profile Entered On: 08/23/2018 19:38 EDT Performed On: 08/23/2018 17:00 EDT by Vianca Morgan, RN Chart Check Powerplans Initiated/Discontinued as Appropriate : Yes All Active Orders Reviewed : Yes Vianca Morgan, RN - 08/23/2018 19:38 EDT documented in this encounter Plan of Treatment Not on file documented as of this encounter Visit Diagnoses Not on filedocumented in this encounter
--- OUTSIDE RECORDS SUMMARY | 2024-08-09 13:27 | XMS_ITS | Encounter Summary ---
Author Organization [employer] Address [address] [place] [id number] Care Team Providers Care Sensitized Paper Tester Name Role Phone Unavailable Primary Care Provider Unavailabl e Encounter Details Date Type Department Care Team (Late st Contact Info) Description 06/26/2019 Transcribed Document [facility] [place] [facility] [place] [address] ProviderMariela MD [address] [place] [address] Social History Tobacco Use Types [...] Conversion Note - Historical ProviderMD - 06/26/2019 5:45 PM CDT [facility] Inpatient Documentation Entered On: 06/26/2019 17:49 EDT Performed On: 06/26/2019 17:45 EDT by George Dial RN [facility] Admission Date : Admit Date 06/16/2019 21:[address] : Diagnosis (25) Pyogenic arthritis, unspecified Pain in left knee Bacteremia Cellulitis, unspecified Sepsis, unspecified organism Hypo-osmolality and hyponatremia Hypokalemia Acute kidney failure, unspecified Elevated white blood cell count, unspecified Elevated erythrocyte sedimentation rate Elevated C-reactive protein (CRP) Cardiac murmur, unspecified Sleep apnea, unspecified Morbid (severe) obesity due to excess calories Other specified abnormal findings of blood chemistry Hypothyroidism, unspecified Unspecified osteoarthritis, unspecified site Essential (primary) hypertension Gastro-esophageal reflux disease without esophagitis Pure hypercholesterolemia, unspecified Venous insufficiency (chronic) (peripheral) Encephalopathy, unspecified Cellulitis, unspecified Cellulitis, unspecified Other disorders of plasma-protein metabolism, not elsewhere classified Reason for WOCN Visit : Initial consult, Dressing change Admitting Diagnosis ST : Reason for Admission KNEE INFECTION WOCN Assessment Summary : pt. assessed to have a 4.25 x .5 x 0.1 open area of ITD. surrounding skin now dry and wdl, epithelial islets present in wound bed. silicone foam dressing replaced due to pt. getting ready to ansport to different facility. recommend however a daily regimen of barrier film spray, let dry and copious amounts of barrier cream TID or prn per soiling/incontinence. pt. encouraged to try an duse bedside commode not bedpan but pt. states she is not there yet. pt. had just stooled. stool noted to be hard dry round nuggets. informed pt.this may indicate dehydration and or the start of constipation. encouraged pt. to drink fluids as long as she is not on fluid restrictions and to do in bed excersisses until she can stand and ambulate. pt. verbalized understanding. George Dial RN - 06/26/2019 17:45 EDT Education Topics, Wound Care Wound Education Grid Cleansing Wound : Verbalizes understanding Debridement : Verbalizes understanding Decrease Friction/Shear : Verbalizes understanding Dressing Changes : Verbalizes understanding Diapering : Verbalizes understanding Etiology/Risk Factors : Verbalizes understanding Hygiene : Verbalizes understanding Incontinence Management : Verbalizes understanding Infection Control : Verbalizes understanding Nutritional Support : Verbalizes understanding Pain Management : Verbalizes understanding Plan of Care : Verbalizes understanding Positioning : Verbalizes understanding Postoperative Care : Verbalizes understanding Pressure Relief : Verbalizes understanding Pressure Ulcer Definition : Verbalizes understanding Prevention : Verbalizes understanding Principles of Wound Healing : Verbalizes understanding Product Use : Verbalizes understanding Recognize Signs and Symptoms of Skin Integrity Impairment : Verbalizes understanding Reports Skin Changes to Healthcare Team : Verbalizes understanding Risk Assessment : Verbalizes understanding Skin Assessment : Verbalizes understanding Skin Care : Verbalizes understanding Support Surfaces : Verbalizes understanding Wound Symptoms of Infection : Verbalizes understanding Wound vacuum : Verbalizes understanding Wound Care, Other : Verbalizes understanding George Dial RN - 06/26/2019 17:45 EDT documented in this encounter Plan of Treatment Not on file documented as of this encounter Visit Diagnoses Not on filedocumented in this encounter
--- OUTSIDE RECORDS SUMMARY | 2024-08-09 13:27 | XMS_ITS | Encounter Summary ---
Author Organization [employer] Address [address] [place] [id number] Care Team Providers Care Director Occupational Name Role Phone Unavailable Primary Care Provider Unavailabl e Encounter Details Date Type Department Care Team (Late st Contact Info) Description 08/20/2020 Transcribed Document [facility] [facility] [place] [address] ProviderMariela MD [address] [place], [place] [address] Social History Tobacco Use Types Packs/Day Years [...] Conversion Note - Historical ProviderMD - 08/20/2020 8:23 PM CDT Education-(VTE) / (DVT) Entered On: 08/21/2020 4:11 EDT Performed On: 08/20/2020 20:23 EDT by Hannah Cardoso RN Teaching/Learning Assessment Barriers To Learning : None evident Individuals Taught : Patient Readiness to Learn : Cooperative Learning Style Preferences Patient : Printed materials, Verbal explanation Learning Style Preferences Family : Printed materials, Verbal explanation Hannah Cardoso RN - 08/21/2020 4:11 EDT documented in this encounter Plan of Treatment Not on file documented as of this encounter Visit Diagnoses Not on filedocumented in this encounter
--- OUTSIDE RECORDS SUMMARY | 2024-08-09 13:27 | XMS_ITS | Encounter Summary ---
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 [place] [facility] [place] [address] ProviderMariela MD [facility] [place] [address] Social History Tobacco Use Types [...] ProviderMD - 08/22/2018 12:12 PM CDT Evaluation, Physical Therapy Entered On: 08/22/2018 13:48 EDT Performed On: 08/22/2018 12:52 EDT by DELMY ALLEN Physical Therapist General Information, PT Visit Type, PT : [...] 08/22/2018 12:14 PT Treatment Instructions Ordered By: EPPS, TAOISM, MD-ORT Active Diagnoses : No Qualifying Diagnoses Therapy Diagnosis, PT : aftercare following R TKA Onset of Problem, PT : 08/22/2018 EDT Admission Date : 08/22/2018 04:51 Assisted by, PT : Occupational Therapist Sensory Deficits, Rehab : None Personal Devices : Personal Devices No Devices Recorded Assistive Devices : Assistive Devices Wheelchair Precautions in Place : Fall prevention measures, Fall prevention measures, high risk General Information Comment, PT : Pt is a 78 year old female s/p R TKA, also reports 5 surgeries on L knee which is now weak. DELMY ALLEN Physical Therapist - 08/22/2018 13:16 EDT General Status Patient Received Status : Supine in bed Treatment Start Time : 08/22/2018 12:52 EDT Patient Left Status : Up in chair, RN/PCT informed, Family/Visitors at bedside, Communication board completed, All needs met and within reach, Other: KI on, no SCDs yet due to pt needing to urinate once omid BSC is located, RN notified of pt needs immediately upon exiting room RN/PCT Informed Comment : OK for PT per EDDIE Coley Pt educ and agreed. Treatment End Time : 08/22/2018 13:17 EDT Treatment Time : 25 Minute(s) DELMY ALLEN Physical Therapist - 08/22/2018 13:16 EDT History and Environment Living Situation, Therapy : Home Patient Lives With : Alone Persons Assisting Patient at Home : Child/Children Professional Skilled Services : None Persons Providing Information : Patient Home Equipment Therapy, PT : Cane, Commode, Shower Equipment, Walker, Wheelchair (Comment: quad cane, handicap toilet, shower seat and grab bars, RWx, manual WC [DELMY ALLEN Physical Therapist - 08/22/2018 13:16 EDT] ) Home Setup : Two story Stairs : Yes Stair Location(s) : Inside, Outside Inside Stairs, Number of Steps : 14 Stairs Inside Comment : pt can live on one level temporarily Outside Stairs, Number of Steps : 3 Railing Inside : Yes Railing Outside : Yes Outside Railing Position : Right, going up Ramp : No DELMY ALLEN Physical Therapist - 08/22/2018 13:16 EDT Prior Level of Function PT GRID Prior LOF Ambulation, Household : Independent Prior LOF Ambulation, Community : Independent Prior LOF Bed Mobility : Independent Prior LOF Toileting : Independent Prior LOF Transfer : Independent DELMY ALLEN Physical Therapist - 08/22/2018 13:16 EDT Upper Extremity Upper Extremity Dominance : Right Right UE Active ROM : WFL Right UE Strength : WFL Left UE Active ROM : WFL Left UE Strength : WFL DELMY ALLEN Physical Therapist - 08/22/2018 13:16 EDT Lower Extremity RLE Active ROM : Impaired Right LE Strength : Impaired LLE Active ROM : WFL Left LE Strength : Impaired Lower Extremity Comment : KI on RLE POD#0 L knee weak but >=3/5 grossly DELMY ALLEN Physical Therapist - 08/22/2018 13:16 EDT Functional Mobility Mobility Grid Bed Scooting : Rehab Minimal assistance Supine to Sit : Rehab Minimal assistance Sit to Stand : Rehab Moderate assistance (Comment: x2 [DELMY ALLEN Physical Therapist - 08/22/2018 13:16 EDT] ) Bed to Chair : Rehab Moderate assistance (Comment: x2 [DELMY ALLEN Physical Therapist - 08/22/2018 13:16 EDT] ) Stand to Sit : Rehab Moderate assistance (Comment: x1-2 [DELMY ALLEN Physical Therapist - 08/22/2018 13:16 EDT] ) DELMY ALLEN Physical Therapist - 08/22/2018 13:16 EDT Functional MobilityComment : gait belt and RWx, ModAx2 for sit/stand, bed to chair DELMY ALLEN Physical Therapist - 08/22/2018 13:16 EDT Gait Training/Assessment, PT Weight Bearing Status Maintained : Yes Weight Bearing Status : As tolerated Weight Bearing Status Comment : KI on RLE, no flexion x 48 hrs Gait Assistance Level : Assist, moderate Walking Distance : 2 feet Ambulatory Devices : Gait belt, Walker, front wheel Gait Deviations : Yes Left Lower Gait Deviation : Violet, decreased, Foot clearance, decreased, Stance time, increased, Step length, decreased, Weight bearing, increased, Wide base of support Right Lower Gait Deviation : Violet, decreased, Circumduction, Knee flexion, decreased, Stance time, decreased, Weight bearing, decreased, Wide base of support Gait Training Comment : min to mod A of 1-2 due to pain, weakness, pt with difficulty maintaining upright. Cues for safety, sequencing. Chair brought to patient to decrease fall risk. DELMY ALLEN Physical Therapist - 08/22/2018 13:16 EDT Neuromuscular Reeducation, PT Balance Comment : static sitting CGA, dynamic Alexandra static standing mod Ax2, dynamic standing maxAx1-2 DELMY ALLEN Physical Therapist - 08/22/2018 13:16 EDT Neurological/Sensory Overall Sensory Response : Intact Response to Pain : Intact Neuro/Sensory Interventions Comment : active ankle DF in BLEs DEMLY ALLEN Physical Therapist - 08/22/2018 13:16 EDT Cognition Assessment, PT Orientation : Oriented x 4 Attention Assessment : Present DELMY ALLEN Physical Therapist - 08/22/2018 13:16 EDT Edu Topics Physical Therapy Education Grid Balance Training : Needs further teaching Bed Mobility Training : Returns demonstration Gait Training : Returns demonstration, Needs further teaching Positioning : Verbalizes understanding Precaution/Contraindication : Returns demonstration, Verbalizes understanding Role of Physical Therapy : Verbalizes understanding Safety : Verbalizes understanding Transfer Training : Returns demonstration Use of Assistive Device : Returns demonstration DELMY ALLEN Physical Therapist - 08/22/2018 13:16 EDT Indication Assesessment, PT Physical Therapy Indicated : Yes PT Problem List : Impaired, activities daily living, Impaired, endurance tolerance, Impaired, gait, Impaired, stair mobility, Impaired, standing balance, Impaired, strength, Impaired, transfers, Pain limiting function Potential Barriers To Therapy : Pain, Other: contralateral weakness LE Rehabilitation Potential : Fair DELMY ALLEN Physical Therapist - 08/22/2018 13:16 EDT Plan of Care, PT PT Tx Plan/Goals Established w Patient : Yes PT Frequency Rehab : Daily, twice (bid) PT Duration Rehab : Seven Days PT Treatments Planned : Balance training, Bed mobility training, Gait training, Pain management, Safety education, Stair training, Therapeutic exercises, Transfer training Plan of Care Comment, PT : BID up to 7 days for acute care PT for mobility training per above. DELMY ALLEN Physical Therapist - 08/22/2018 13:16 EDT Usp Goals Other PT LTG Grid Goal #1 Goal #2 Goal #3 Other : Patient will ambulate at least 50 feet with RWx and no more than Alexandra without LOB or safety concerns to allow safe household or facility ambulation upon acture care DC. Patient will participate with therex [...] : Initial goal Initial goal Initial goal DELMY ALLEN Physical Therapist - 08/22/2018 13:16 EDT DELMY ALLEN Physical Therapist - 08/22/2018 13:16 EDT DELMY ALLEN Physical Therapist - 08/22/2018 13:16 EDT Treatment Note Subjective Comment : Pt is agreeable, needs to pee but states she can't use a regular BSC, needs a wider one so her knees arent too close. She is apprehensive about WB due to LLE weakness. She rates her pain 8.5/10 per VAS, documented per FACES scale below, RN notified of both. Additional Objective Information : Eval per above. Pt instructed for Zero knee use, not yet initiated due to urgency to urinate. Assessment : Pt is appropriate for skilled PT intervention in the acute care setting to minimize restrictions and maximize safety and mobility for optimal functional gains postoperatively. Plan for Treatment : Cont BID DELMY ALLEN Physical Therapist - 08/22/2018 13:16 EDT Pain Assessment Pain Scaled Used : FACES Pain Score Pre-Intervention : 4 Pain Score During-Intervention : 6 Pain Score Post-Intervention. : 4 DELMY ALLEN Physical Therapist - 08/22/2018 13:16 EDT Image 1 - Images currently included in the form version of this document have not been included in the text rendition version of the form. [facility] PT Charges Gait Training Each 15 Min : 1 PT Eval Low Complexity : 1 DELMY ALLEN Physical Therapist - 08/22/2018 13:16 EDT Electronically signed by Interface, Sjh Conversion Napht[employer] Washing System Operator Cerner at 06/16/2022 8:24 PM CDT documented in this encounter Plan of Treatment Not on file documented as of this encounter Visit Diagnoses Not on filedocumented in this encounter
--- OUTSIDE RECORDS SUMMARY | 2024-08-09 13:27 | XMS_ITS | Encounter Summary ---
Author Organization [facility] [employer] [facility] Address [address] [place] [id number] Care Team Providers Care Aviculturist Name Role Phone Unavailable Primary Care Provider Unavailabl e Encounter Details Date Type Department Care Team (Late st Contact Info) Description 08/22/2018 Transcribed Document [facility] Family Medicine [facility] [place] [address] ProviderMariela MD [facility] [place] [address] Social History Tobacco Use Types [...] Historical ProviderMD - 08/22/2018 9:14 AM CDT [facility] Main OR IntraOp Summary Primary Physician: NIMO EPPS MD-ORT Finalized Date/Time: 08/22/18 11:15:32 Pt. Name: SOFIA GILL Eufemia /Sex: 1940 Female Med Rec #: [id number] Physician: NIMO EPPS MD-ORT Financial #: [id number] Pt. Type: O Room/Bed: Admit/Disch: 08/22/18 04:51:00 - Institution: [facility] IntraOp Case Attendance Entry 1 Entry 2 Entry 3 Case Attendee NIMO EPPS STULL, KELSI A, NA Warner, Missy M Rn -ORT Role Performed Surgeon/Proceduralist, HANDLE BAR ASSEMBLER/Nurse Plywood Matcher Electrolysis Engineer, First First Time In 08/22/18 09:11:00 08/22/18 08:38:00 08/22/18 08:38:00 Time Out 08/22/18 10:16:00 08/22/18 11:06:00 08/22/18 11:06:00 Procedure Knee Total Joint Knee Total Joint Knee Total Joint Replacement Replacement Replacement Other Attendee Superficial Wound Closed By: Last Modified By: Yessi Ceron Rn Warner, Missy M, Yessi Manrique, Laxmi 08/22/18 11:15:02 08/22/18 11:15:02 08/22/18 11:15:02 Entry 4 Entry 5 Entry 6 Case Attendee Carlos Gonzalez, OMAR Chery, ESTEBAN Role Performed Scrub, First Scrub, Second Orthopedic Shoe Maker, First Time In 08/22/18 08:38:00 08/22/18 08:38:00 08/22/18 08:38:00 Time Out 08/22/18 11:06:00 08/22/18 10:22:00 08/22/18 11:06:00 Procedure Knee Total Joint Knee Total Joint Knee Total Joint Replacement Replacement Replacement Other Attendee Superficial Wound Closed By: Last Modified By: Yessi Ceron Rn Warner, Missy M, Yessi Manrique Rn 08/22/18 11:15:02 08/22/18 11:15:02 08/22/18 11:15:02 Entry 7 Entry 8 Case Attendee OTHER, ATTENDEE #1 SOLOMON MCCRACKEN PA-C Role Performed Vendor Physician office support assistant Time In 08/22/18 08:38:00 08/22/18 09:38:00 Time Out 08/22/18 11:06:00 08/22/18 11:06:00 Procedure Knee Total Joint Knee Total Joint Replacement Replacement Other Attendee jim morales Superficial Wound Closed By: Last Modified By: Yessi Ceron Rn Warner, Missy M, Rn 08/22/18 11:15:26 08/22/18 11:15:02 [facility] IntraOp Case Attendance Audit 08/22/18 11:15:26 Inspector Production Plastic Parts: [id number] Modifier: [id number] <+> Role Performed 7 <*> Procedure Knee Total Joint Replacement 08/22/18 11:15:02 Inspector Production [employer]astic Parts: [id number] Modifier: [id number] 1 <*> Procedure Knee Total Joint Replacement 2 <+> Time Out 2 <*> Procedure Knee Total Joint Replacement 3 <+> Time Out 3 <*> Procedure Knee Total Joint Replacement 4 <+> Time Out 4 <*> Procedure Knee Total Joint Replacement 5 <*> Procedure Knee Total Joint Replacement 6 <+> Time Out 6 <*> Procedure Knee Total Joint Replacement 7 <+> Time Out 7 <*> Procedure Knee Total Joint Replacement 8 <+> Time Out 8 <*> Procedure Knee Total Joint Replacement 08/22/18 10:25:09 Inspector Production [employer]astic Parts: [id number] Modifier: [id number] 1 <+> Time Out 1 <*> Procedure Knee Total Joint Replacement 5 <+> Time Out 5 <*> Procedure Knee Total Joint Replacement 08/22/18 09:38:47 Inspector Production [employer]astic [employer]: [id number] Modifier: [id number] 1 <*> Procedure Knee Total Joint Replacement 8 <*> Time In 08/22/18 08:38:00 8 <*> Procedure Knee Total Joint Replacement 08/22/18 09:33:38 Inspector Production [employer]astic Parts: [id number] Modifier: [id number] 1 <*> Case Attendee NIMO EPPS MD-ORT 1 <*> Role Performed Surgeon/Proceduralist, First 1 <*> Time In 08/22/18 09:11:00 1 <*> Procedure Knee Total Joint Replacement 2 <*> Case Attendee ATTILA COMER, NA 2 <*> Role Performed HANDLE BAR ASSEMBLER/Nurse Plywood Matcher 2 <*> Time In 08/22/18 08:38:00 2 <*> Procedure Knee Total Joint Replacement 3 <*> Case Attendee Yessi Ceron, Rn 3 <*> Role Performed Electrolysis Engineer, First 3 <*> Time In 08/22/18 08:38:00 3 <*> Procedure Knee Total Joint Replacement 4 <*> Case Attendee Carlos Gonzalez 4 <*> Role Performed Scrub, First 4 <*> Time In 08/22/18 08:38:00 4 <*> Procedure Knee Total Joint Replacement 5 <*> Case Attendee Flavia Hendricks 5 <*> Role Performed Scrub, Second 5 <*> Time In 08/22/18 08:38:00 5 <*> Procedure Knee Total Joint Replacement 6 <*> Case Attendee OMAR JIMENEZ, ESTEBAN 6 <*> Role Performed Orthopedic Shoe Maker, First 6 <*> Time In 08/22/18 08:38:00 6 <*> Procedure Knee Total Joint Replacement Entry 7 was deleted. Higher numbered entries shifted one position to fill the gap. <-> 7 Case Attendee JEANNE CASEY PAC <-> 7 Role Performed Physician office support assistant <-> 7 Time In 08/22/18 08:38:00 <-> 7 Procedure Knee Total Joint Replacement <-> 7 Other Attendee 8 <*> Case Attendee OTHER, ATTENDEE #1 8 <+> Role Performed 8 <*> Time In 08/22/18 08:38:00 8 <*> Procedure Knee Total Joint Replacement 8 <-> Other Attendee jim andrew 08/22/18 09:33:18 Inspector Production [employer]astic Parts: [id number] Modifier: [id number] 1 <*> Procedure Knee Total Joint Replacement 2 <*> Procedure Knee Total Joint Replacement 3 <*> Procedure Knee Total Joint Replacement 4 <*> Procedure Knee Total Joint Replacement 5 <*> Procedure Knee Total Joint Replacement 6 <*> Procedure Knee Total Joint Replacement 7 <*> Procedure Knee Total Joint Replacement 8 <*> Procedure Knee Total Joint Replacement 9 <+> Time In 9 <*> Procedure Knee Total Joint Replacement 08/22/18 09:32:29 Inspector Production [employer]astic Parts: [id number] Modifier: [id number] <+> 9 Case Attendee <+> 9 Role Performed <+> 9 Procedure 08/22/18 09:13:27 Inspector Production [employer]astic [employer]: [id number] Modifier: [id number] 1 <+> Time In 1 <*> Procedure Knee Total Joint Replacement 2 <+> Time In 2 <*> Procedure Knee Total Joint Replacement 3 <+> Time In 3 <*> Procedure Knee Total Joint Replacement 4 <+> Time In 4 <*> Procedure Knee Total Joint Replacement 5 <+> Time In 5 <*> Procedure Knee Total Joint Replacement 6 <+> Time In 6 <*> Procedure Knee Total Joint Replacement 7 <+> Time In 7 <*> Procedure Knee Total Joint Replacement 8 <+> Time In 8 <*> Procedure Knee Total Joint Replacement [facility] IntraOp Case Times Entry 1 Patient In Room Time 08/22/18 08:38:00 Out Room Time 08/22/18 11:06:00 Anesthesia Start Time 08/22/18 08:38:00 Stop Time 08/22/18 11:01:00 Anesthesia Ready 08/22/18 08:38:00 Surgery / Procedure Times Start Time 08/22/18 09:14:00 Stop Time 08/22/18 10:56:00 Last Modified By: Yessi Ceron Rn 08/22/18 11:05:29 [facility] IntraOp Case Times Audit 08/22/18 11:05:29 Inspector Production [employer]: [id number] Modifier: [id number] <+> 1 Out Room Time <+> 1 Stop Time <+> 1 Stop Time 08/22/18 09:32:54 Inspector Production [employer]astic [employer]: [id number] Modifier: [id number] <+> 1 Start Time [facility] IntraOp Cautery Entry 1 ESU Identification Cautery Type Monopolar ESU ID Number [id number] ID Type Hospital Number Cautery Settings Cut Setting 70 Coag Setting 70 ESU Grounding Pad Ground Pad Type Adult Grounding Pad Site Left Lower Abdomen Grounding Pad Yessi Ceron Rn Applied By Grounding Pad Site Intact Skin Condition Before Cautery Grounding Pad Site Unchanged Skin Condition After Cautery Last Modified By: Yessi Ceron Rn 08/22/18 07:12:50 [facility] IntraOp Communication Entry 1 Communication To Family/Significant other Comment START Communication By Yessi Ceron Rn Date and Time 08/22/18 09:14:00 Last Modified By: Yessi Ceron Rn 08/22/18 09:33:06 [facility] IntraOp Communication Audit 08/22/18 09:33:06 Inspector Production [employer]astic [employer]: [id number] Modifier: [id number] <+> 1 Date and Time [facility] IntraOp Counts Verification Entry 1 Entry 2 Procedure Knee Total Joint Knee Total Joint Replacement Replacement Count Info Count Type Sponge, Sharps Sponge, Sharps Counts Verification Baseline/pre-procedure Before wound closure Sequence Count Results Not Applicable Correct, surgeon notified If Incorrect or Waived complete the Counts Action Taken form: If Intentional Retention, complete the Intential Retention form: Counts Performed By Count Performed By Carlos Gonzalez Mark (Scrub) Count Performed By Yessi Ceron Rn Warner, Missy M Rn (RN) Last Modified By: Yessi Ceron Rn Warner, Missy M, Rn 08/22/18 07:13:26 08/22/18 10:17:11 [facility] IntraOp Counts Verification Audit 08/22/18 10:17:11 Inspector Production [employer]astic Parts: [id number] Modifier: [id number] 2 <*> Procedure Knee Total Joint Replacement 2 <+> Count Performed By (Scrub) 2 <+> Count Performed By (RN) [facility] IntraOp Counts Final Entry 1 Procedure Knee Total Joint Replacement Final Count Info Count Type Sponge, Sharps Counts Verification Skin Closure/end of Sequence procedure Count Results Correct, surgeon notified Counts Performed By Count Performed By Carlos Gonzalez (Scrub) Count Performed By Yessi Ceron Rn (RN) Last Modified By: Yessi Ceron Rn 08/22/18 10:25:21 [facility] IntraOp Counts Final Audit 08/22/18 10:25:21 Inspector Production Plastic Parts: [id number] Modifier: [id number] 1 <*> Procedure Knee Total Joint Replacement 1 <+> Count Performed By (Scrub) 1 <+> Count Performed By (RN) SAMMIE IntraOp Cultures and Spec Summary Entry 1 Cultrures and Specimens Specimen Ordered: Yes Specimens Types Pathology Specimen(s) Labeled Pathology and Sent to Last Modified By: Yessi Ceron Rn 08/22/18 07:13:38 [facility] IntraOp Departure from OR Entry 1 Integumentary Assessment Integumentary WDL Assessment WDL Transfer/Handoff Transfer to PACU Phase I Handoff Method Bedside/Face to face Post-op Transport Bed (including Via specialty) Patient Transport ATTILA COMER NA, Accompanied by Yessi Ceron, Laxmi Last Modified By: Yessi Ceron Rn 08/22/18 07:13:43 [facility] IntraOp Drains and Tubes Entry 1 Device Type Hemovac Size 1/8 Drain/Tube Activity Inserted Device Location RIGHT KNEE Method of Drainage Compression Last Modified By: Yessi Ceron Rn 08/22/18 07:13:51 [facility] IntraOp Dressing and Packing Entry 1 Type Dressing Location RIGHT KNEE Wound Dressing Item Sanchez, 4x4's, Xeroform, Webril, Steristrip Supplemental Limb immobilizer, Cold Applications pack Applied By SOLOMON MCCRACKEN PA-C Last Modified By: Yessi Ceron Rn 08/22/18 09:32:44 [facility] IntraOp Dressing and Packing Audit 08/22/18 09:32:44 Inspector Production [employer]astic Parts: [id number] Modifier: [id number] 1 <*> Applied By JEANNE CASEY PAC [facility] IntraOp Fire Risk Assessment Entry 1 Fire Info Surgical Site or 0- No Incision Above the Xyphoid Open O2 Source 0- No (Mask or Cannula) Available Ignition 1- Yes (ESU, Laser, Light Source) Fire Risk 1 Assessment Score Fire Score Fire Risk Yes Assessment Complete Fire Risk Yessi Ceron Rn Assessment Verified By Fire Risk 08/22/18 09:11:00 Assessment Verified Date/Time Fire Risk Standard Fire Yes Safety Precautions Followed Last Modified By: Yessi Ceron Rn 08/22/18 09:11:50 [facility] IntraOp Fire Risk Assessment Audit 08/22/18 09:11:50 Inspector Production [employer]astic Parts: [id number] Modifier: [id number] <+> 1 Fire Risk Assessment Verified Date/Time E IntraOp General Case Tinsel Machine Operator 1 Case Information OR OR 02 [facility] Case Level 1 Room Verified Yes Wound Class I - Clean Specialty SN Orthopedic Anesthesia Type General ASA Class 3 Diagnosis Preop Diagnosis SEVERE DJD Postop Same As Preop Yes Postop Diagnosis SEVERE DJD Last Modified By: Yessi Ceron Rn 08/22/18 09:12:03 [facility] IntraOp General Case Data Audit 08/22/18 09:12:03 Inspector Production [employer]: [id number] Modifier: [id number] <+> 1 Room Verified 08/22/18 09:11:58 Inspector Production [employer]astic Parts: [id number] Modifier: [id number] <+> 1 ASA Class [facility] IntraOp Implant Log Entry 1 Entry 2 Entry 3 Type Implant (Synthetic) Implant (Synthetic) Implant (Synthetic) Implant Log Implant Type Bone Cement Hardware Hardware Tissue Implant Type Implant CEMENT BONE COBALT HV COMP FEM CR INTLOK VGRD TY TIB I-BEAM FIX Identification -[id number] [id number] Description Implant Quantity 2 1 1 Implant Site RIGHT KNEE RIGHT KNEE RIGHT KNEE Implant Identification Model Number Implant Identification Serial Number Implant [id number] Identification Lot Number Implant Dj Surg:Encore Biomet Biomet Identification Med:Bobbi Cast Iron Dipper Name: Implant [id number] Identification Catalog Number Implant Size Implant Has an Yes Yes Yes Expiration Date Implant Expiration 0606/27/28 05/23/28 Date Wasted Radioactive Material Time Implanted Tissue Implant Continue for Tissue Implant Documentation Tissue Identification Number Graft Prep Per Cast Iron Dipper Instructions: Tissue Preparation Method: Reconstitution Solution: Reconstitution Solution Lot Number Reconstitution Solution Expiration Date: Thawing Solution Thawing Solution Lot Number Thawing Solution Expiration Date Preparation Materials, Other Preparation Materials, Other Lot Number Preparation Materials, Other Expiration Date Tissue Prepared/Processed By Cast Iron Dipper Paperwork Completed Implant Type Comment Last Modified By: Yessi Ceron Rn Warner, Missy M, Rn Warner, Missy M, Rn 08/22/18 10:16:57 08/22/18 10:16:57 08/22/18 10:16:57 Entry 4 Entry 5 Type Implant (Synthetic) Implant (Synthetic) Implant Log Implant Type Hardware Hardware Tissue Implant Type Implant PATELLA THIN BEAR VAN TIB DCM Identification [id number] Description Implant Quantity 1 1 Implant Site RIGHT KNEE RIGHT KNEE Implant Identification Model Number Implant Identification Serial Number Implant [id number] Identification Lot Number Implant Biomet Biomet Identification Cast Iron Dipper Name: Implant [id number] Identification Catalog Number Implant Size Implant Has an Yes Yes Expiration Date Implant Expiration 07/24/23 06/12/23 Date Wasted Radioactive Material Time Implanted Tissue Implant Continue for Tissue Implant Documentation Tissue Identification Number Graft Prep Per Cast Iron Dipper Instructions: Tissue Preparation Method: Reconstitution Solution: Reconstitution Solution Lot Number Reconstitution Solution Expiration Date: Thawing Solution Thawing Solution Lot Number Thawing Solution Expiration Date Preparation Materials, Other Preparation Materials, Other Lot Number Preparation Materials, Other Expiration Date Tissue Prepared/Processed By Cast Iron Dipper Paperwork Completed Implant Type Comment Last Modified By: Yessi Ceron Rn Warner, Missy M, Rn 08/22/18 10:16:57 08/22/18 10:16:57 [facility] IntraOp Implant Log Audit 08/22/18 10:16:57 Inspector Production [employer]astic Parts: [id number] Modifier: [id number] <+> 1 Implant Identification Description <+> 1 Implant Identification Lot Number <+> 1 Implant Identification Cast Iron Dipper Name: <+> 1 Implant Expiration Date <+> 1 Implant Identification Catalog Number <+> 2 Implant Identification Description <+> 2 Implant Identification Lot Number <+> 2 Implant Identification Cast Iron Dipper Name: <+> 2 Implant Expiration Date <+> 2 Implant Identification Catalog Number <+> 3 Implant Identification Description <+> 3 Implant Identification Lot Number <+> 3 Implant Identification Cast Iron Dipper Name: <+> 3 Implant Expiration Date <+> 3 Implant Identification Catalog Number <+> 4 Implant Identification Description <+> 4 Implant Identification Lot Number <+> 4 Implant Identification Cast Iron Dipper Name: <+> 4 Implant Expiration Date <+> 4 Implant Identification Catalog Number <+> 5 Implant Identification Description <+> 5 Implant Identification Lot Number <+> 5 Implant Identification Cast Iron Dipper Name: <+> 5 Implant Expiration Date <+> 5 Implant Identification Catalog Number [facility] IntraOp Intraoperative Assessment Entry 1 Handoff Method Bedside/Face to face Valid History / Yes Physical in Chart Preoperative Yes Checklist Reviewed/Evaluated Allergies Reviewed Yes Patient is Latex No Sensitive Isolation Not applicable Precautions Noted Level of WDL Consciousness (WDL = Alert, Oriented to Person, Place, and Time) Skin Assessment Yes Verified Present Upon IVs Arrival to OR Last Modified By: Yessi Ceron Rn 08/22/18 07:15:58 [facility] IntraOp Intraoperative Equipment Entry 1 Type Equipment Equipment Equipment Stefani Suction System Setting HIGH Intraop Monitoring Antiembolic Devices Antiembolic Devices Sequential compression device, knee high Antiembolic Device Left Location Scopes Photo/Video Documentation Photo No Video No Last Modified By: Yessi Ceron Rn 08/22/18 07:16:08 [facility] IntraOp Medication Admin Entry 1 Entry 2 Entry 3 Medication/Irrigant TRANEXAMIC ACID ANESTHETIC hydrogen peroxide 3% - 1000MG/10 ML COCKTAIL-MICH [id number] Combo Med List Time Administered Route of TOPICALW/ 25ML NACL Administration Dose Dose 1000 Unit of Measure mg Volume 10 ML Administered By NIMO EPPS MD-ORT Procedure Irrigation Irrigant Volume In Irrigant Volume Out Last Modified By: Yessi Ceron Rn Warner, Missy M, Rn Yessi Ceron Rn 08/22/18 07:16:28 08/22/18 07:16:28 08/22/18 07:16:28 Entry 4 Medication/Irrigant vancomycin 1Gm vial - [id number] Combo Med List Time Administered Route of Administration Dose Dose Unit of Measure Volume Administered By Procedure Irrigation Irrigant Volume In Irrigant Volume Out Last Modified By: Yessi Ceron Rn 08/22/18 07:16:28 [facility] IntraOp Patient Positioning Entry 1 Procedure Knee Total Joint Replacement Body Position Supine Left Arm Position Secured on padded arm board Right Arm Position Secured on padded arm board Left Leg Position Uncrossed, parallel Right Leg Position Uncrossed, parallel Feet Uncrossed Yes Pressure Points Yes Checked Positioning Devices Foot Rest, Pillows, Safety Strap, Chest, Sand bags Device Position FOOT PROP ON BED AT PATIENT'S MID CALF AND ANKLE; LATERAL POST AT TOURNIQUET LEVEL Positioned By OMAR JIMENEZ CSA, Yessi Ceron, Laxmi, ATTILA COMER NA Position Verified Positioning Yes Verified by Anesthesia Positioning Yes Verified by Surgeon Last Modified By: Yessi Ceron Rn 08/22/18 07:16:35 [facility] IntraOp Sign In Entry 1 Patient, Site, Yes Procedure Identified Surgical Consent Yes Confirmed Relevant Surgical Yes Documents Available Surgical Site Yes Marked by person performing procedure Anesthesia Machine Yes Check Completed Medication Checks Yes Completed Allergies Yes Airway Difficult No Airway/Aspiration Risk Difficult Yes Airway/Aspiration Intervention Equipment Available Blood Loss Risk Yes Blood Loss Yes Intervention Equipment Prepared and Ready Blood Identifiers Not applicable Verified Per Policy Hypothermia Risk Yes Warming Measures Yes Taken Last Modified By: Yessi Ceron Rn 08/22/18 07:16:42 [facility] Intra Op Sign Out Entry 1 RN Confirmation Surgical Yes Procedure(s) Identified Instrument, Sponge Yes and Sharps Counts Correct/Documented Equipment Problems N/A Documented Specimen Labeled Yes Correctly Urinary Catheter N/A Documented in IView Hodgson Patient Yes Recovery Concerns Reviewed with Anesthesia Provider, Surgeon and RN Hodgson Patient Yes Management Concerns Reviewed with Anesthesia Provider, Surgeon and RN Safety Checklist Yes Elements Complete? RN Sign Out Yessi Ceron Rn Signature RN Sign Out 08/22/18 10:26:00 Signature Date/Time Plan of Care Outcome - Fire Risk OUTCOME STATEMENT: Goal met Patient is free from injury related to surgical fire Plan of Care Outcome - Pt Positioning OUTCOME STATEMENT: Goal met Absence of signs and symptoms of positioning injury. Plan of Care Outcome - Skin Prep OUTCOME STATEMENT: Goal met Intraoperative care is consistent with measures to prevent infection Plan of Care Outcome - Xray/Images OUTCOME STATEMENT: N/A Absence of observable signs or symptoms of radiation injury Plan of Care Outcome - Counts OUTCOME STATEMENT: Goal met Absence of signs and symptoms of injury related to extraneous objects Last Modified By: Yessi Ceron Rn 08/22/18 10:25:32 [facility] IntraOp Skin Prep Entry 1 Procedure Knee Total Joint Replacement Prescribed Yes Pre-Surgical Prep Completed Prep Area RIGHT LEG AND FOOT Intraop Prep Integumentary WDL with exceptions Assessment WDL WDL Patient PT HAS 2 LARGE Exceptions SCRATCHES ON HER OUTER RIGHT KNEE AND A SKIN ABRASION ON HER DRAPER WITH BRUISING Prep Agents DuraPrep, Alcohol Prep by Yessi Ceron, Rn Hair Removal Methods No hair removal performed Last Modified By: Yessi Ceron Rn 08/22/18 09:11:45 [facility] IntraOp Skin Prep Audit 08/22/18 09:11:45 Inspector Production [employer]astic Parts: [id number] Modifier: [id number] 1 <*> Procedure Knee Total Joint Replacement 1 <+> Integumentary Assessment WDL 1 <+> WDL Patient Exceptions [facility] IntraOp Surgical Procedures Entry 1 Procedure Knee Total Joint Replacement Additional RIGHT TOTAL KNEE Procedure ARTHROPLASTY Description Primary Procedure Yes Primary Surgeon NIMO EPPS MD-ORT Start 08/22/18 09:14:00 Stop 08/22/18 10:56:00 Anesthesia Type General Specialty SN Orthopedic Wound Class I - Clean Last Modified By: Yessi Ceron Rn 08/22/18 11:15:07 [facility] IntraOp Surgical Procedures Audit 08/22/18 11:15:07 Inspector Production [employer]astic Parts: [id number] Modifier: [id number] <+> 1 Stop 08/22/18 10:25:37 Inspector Production [employer]astic Parts: [id number] Modifier: [id number] <+> 1 Start [facility] IntraOp Temp Regulation Devices Entry 1 Temp Regulation Temperature Forced Air Warming Regulation Device device Temperature Upper body Regulation Site Temperature Device 43 Setting Temperature SOULEYMANEATTILA GOODSON A, NA Regulation Device Applied by Last Modified By: Yessi Ceron Rn 08/22/18 07:17:05 [facility] IntraOp Time Out Entry 1 Procedure to be Knee Total Joint Performed Replacement Time Out Time Out Pause Time 08/22/18 09:11:00 All activity Yes suspended (unless life threatening emergency) Team Verbally Correct patient Confirms Information identity, Correct side and site are marked, Consent form is present and accurate, Agreement on the procedure to be done, Correct patient position, Relevant images/results properly labeled/appropriately displayed, Confirm antibiotics have been administered, Confirm the skin prep has dried, Confirm prosthesis/implant/devic e is present, Performed in location of procedure after prepped/draped Antibiotic Yes Prophylaxis Administered Or In Progress Within the Last 60 Minutes Beta Nancy N/A Administered Venous N/A Thromboembolism Prophylaxis Required Anticipated Critical Events Surgeon None expected Anesthesia Provider None expected Nursing Assures Sterility of instruments, Implant Availability Essential Imaging Yes Labeled and Displayed Last Modified By: Yessi Ceron Rn 08/22/18 09:12:12 [facility] IntraOp Time Out Audit 08/22/18 09:12:12 Inspector Production [employer]astic Parts: [id number] Modifier: [id number] 1 <+> Time Out Pause Time 1 <*> Procedure to be Performed Knee Total Joint Replacement [facility] IntraOp Tourniquet Entry 1 Type Pneumatic Serial/Unit Number LOANER Setting 350 mmHg Pheumatic Yes Tourniquet Checked Per Protocol Size 34 inches Placement Thigh, right upper Skin Protection - Yes Padded Under Cuff Applied By OMAR JIMENEZ, CSA Removed By SOLOMON MCCRACKEN PA-C Times Start Time 08/22/18 09:12:00 Stop Time 08/22/18 10:56:00 Last Modified By: Yessi Ceron Rn 08/22/18 10:57:10 [facility] IntraOp Tourniquet Audit 08/22/18 10:57:10 Inspector Production [employer]astic Parts: [id number] Modifier: [id number] <+> 1 Stop Time 08/22/18 09:33:26 Inspector Production [employer]astic Parts: [id number] Modifier: [id number] 1 <*> Removed By JEANNE CASEY PAC 08/22/18 09:13:11 Inspector Production [employer]astic Parts: [id number] Modifier: [id number] <+> 1 Start Time Case Comments <None> Finalized By: Yessi Ceron, Rn Document Signatures Signed By: Yessi Ceron Rn 08/22/18 11:15 documented in this encounter Plan of Treatment Not on file documented as of this encounter Visit Diagnoses Not on filedocumented in this encounter
--- OUTSIDE RECORDS SUMMARY | 2024-08-09 13:27 | XMS_ITS | Encounter Summary ---
Author Organization [employer] Address [address] [place] [address] Care Team Providers Care Router Operator Radial Name Role Phone Unavailable Primary Care Provider Unavailabl e Encounter Details Date Type Department Care Team (Late st Contact Info) Description 08/20/2020 Transcribed Document [facility] [place] [address] ProviderMariela MD [address] [place] [address] Social History Tobacco Use Types Packs/Day [...] Conversion Note - Historical ProviderMD - 08/20/2020 8:06 PM CDT DATE OF PROCEDURE: 08/20/2020 SURGEON: Riaz Saenz MD PREOPERATIVE DIAGNOSIS: Chronic failure, right patellar tendon, status post total knee arthroplasty. POSTOPERATIVE DIAGNOSIS: Chronic failure, right patellar tendon, status post total knee arthroplasty. PROCEDURE: Right total knee arthroplasty revision with extensor mechanism reconstruction with Marlex mesh. ANESTHESIA: Femoral nerve block, IPACK block, general. EMTS: Brady. ESTIMATED BLOOD LOSS: Minimal. TOURNIQUET TIME: 145 minutes. DRAINS: One. COMPLICATIONS: None apparent. DISPOSITION: To recovery room. CLINICAL NOTES: No acute inflammation noted on frozen section. Cell count was 1392 white blood cells. Five synovial cultures and 1 femoral interface culture taken. No evidence of infection, though tissue looked slightly unhealthy. IMPLANTS USED: Ovalle and Nephew size 5 femur with 5 mm medial and lateral distal augments and a 6 mm offset length with a 13 x 120 mm press-fit stem. Size 3 tibia with a 5 mm medial and lateral augment and a 6 mm offset and 11 x 120 mm press-fit stem, 11 mm insert. PROCEDURE IN DETAIL: Informed consent, femoral nerve block, IPACK block, general endotracheal anesthesia, Castellano catheter, standard prep and drape, though sterile tourniquet was utilized. Midline incision with extension up high into the quadriceps. We entered the knee and tissue was obviously in slightly atrophied state and subcu tissue was very poor quality. Aspiration was performed revealing 1392 white blood cells. Medial parapatellar arthrotomy was performed. Medial and lateral gutters debrided. Proximal division in the quadriceps tendon was performed for later repair. The tendon was quite small and diminutive. The quadriceps was mobilized both medially and laterally to allow for later repair over the Marlex mesh graft. We proceeded to flex the knee and gain exposure to the knee. The femur and tibia were both well fixed. The implants were removed without much difficulty. Saws were used on the tibia to help facilitate. 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 Following the femoral and tibial implant removal, we set up to remove the cement plug on the cemented tibial implant. This was quite difficult since the cement really formed a plug that went to the medial, lateral, and posterior cortices. Care and time were taken to do this safely. The plug was well fixed to the bone. This was time consuming. We then proceeded to ream the tibia to 11 and the femur to 13. A flat cut was made on the tibia. The tibia was sized to be a 3. I felt that a 6 mm offset would be the best and boss reaming was performed for this. When the boss reaming was performed relative to the tibial stem, this brought the reaming quite far anterior and this was quite time consuming as reaming was quite slow and we were up against the cortical bone and I had great concerns about fracture for the patient. On the other hand, I did not want a cemented long stem in her case. I felt that a lot of cortical bone was exposed and there was very little cancellous bone for interdigitation. We were finally able to get the trial down and move down the femur. We sized the femur to be a 5 and matched the rotation of the prior femoral implant. A distal femoral cut was made just to freshen the distal surface. We then pinned our 5 cutting guide in position over the right with a 6 mm offset. Cuts were made. Care was taken to make the cuts for the 10 mm posterior augments in order to make room for the hinge implant. Boss reaming was performed. Again, the boss reaming was very tight, though this was much easier than the tibia. Trial implants were placed. We mobilized our patella further at this time. We felt that the patella had got down to an appropriate level, though it was quite scarred proximally. Consideration was given towards removing the 5 mm distal augments on the femur to drop the patella relative to the joint line. I could not do this as I was concerned that the femoral implant would not be able to be inserted all the way. The bone was simply too small. We then proceeded to remove our trial implants. We had earlier placed an 11 mm spacer and felt that the head of the joint line relative to the patella was appropriate. We removed our trial implants. We performed a Betadine rinse. We pulse lavaged. We dried the bone. We then proceeded to place the Marlex mesh graft that was a 10 x 14 inch graft in the tibial canal and placed our tibial implant in position. We assembled our implants. We dried the bone once again following pulse lavage. We proceeded to place 6 cm of graft into the tibia. We placed the tibial implant in position. We then placed the femoral implant in position and I waited for cement hardened. We then applied our 11 mm spacer followed by our oblique between the femur and tibia. We then proceeded to pull the synthetic graft proximally as we repaired the distal patellar tendon stump to it. There was about 4 cm of patellar tendon that was adequate here as the primary tear was off the inferior aspect of the patella. We then proceeded to pass the graft anterior to the patella and repaired it to the medial aspect of the patella anteriorly and also on top of the vastus lateralis with #5 Ethibond sutures. We then proceeded to place the medial aspect of the quadriceps over top of the graft hiding as much graft as possible. We attempted to repair additional tissue over top of the graft, but the subcutaneous tissue was just too poor for this. We pulse lavaged again at this point. We continued our medial retinacular repair. The patella was well centered and felt well positioned relative to our joint line. We then placed our drain. There was a lateral release that had been performed earlier to help with patellar mobilization. We used our vancomycin powder and placed it in her tranexamic acid into the wound. The tourniquet had been down for about an hour at this point since following cementing, we left the tourniquet down. Remainder of the knee was closed in layers. A long-leg cast was applied. Foot was included. The patient extubated and taken to the recovery room in stable condition. POSTOPERATIVE PLAN: Cast for 3 months. First cast change in 3 weeks. Next cast change 5 weeks after that with last cast change at 3 months after surgery. The patient can then go into a brace locked at 0 for the first month, then allowing bend to 45 degrees at 5 months and bending to 90 degrees at 6 months. Weightbearing as tolerated, it begins when the cast comes off at 3 months. /[id number] Riaz Saenz MD CC/AQ / CC / MODL /[id number] documented in this encounter Plan of Treatment Not on file documented as of this encounter Visit Diagnoses Not on filedocumented in this encounter
--- OUTSIDE RECORDS SUMMARY | 2024-08-09 13:27 | XMS_ITS | Encounter Summary ---
Author Organization [employer] Address [address] [place] [address] Care Team Providers Care Corporate Communications Manager Name Role Phone Unavailable Primary Care Provider Unavailabl e Encounter Details Date Type Department Care Team (Late st Contact Info) Description 08/25/2020 Transcribed Document [facility] [place] Family Medicine [facility] [place] [address] ProviderMariela MD [address] [place] [address] Social History Tobacco Use Types Packs/Day [...] Historical ProviderMD - 08/25/2020 5:00 AM CDT Pain Assessment Entered On: 08/25/2020 5:28 EDT Performed On: 08/25/2020 5:12 EDT by Rayna Carrizales Rn Intervention Information: acetaminophen Performed by Chinyere Littlejohn RN-PATIENT CARE BEDSIDE NON-EXEMPT on 08/25/2020 04:12:00 EDT acetaminophen,1000mg Oral Pain Assessment Pain Assessment : Follow-up assessment Pain Scale Goal : 3 Pain Scale Used : 0-10 Scale Pain Improved by Intervention : Yes Rayna Carrizales Rn - 08/25/2020 5:28 EDT Pain Scale [...]
--- OUTSIDE RECORDS SUMMARY | 2024-08-09 13:27 | XMS_ITS | Encounter Summary ---
Author Organization [employer] Address [address] [place] [address] Care Team Providers Care Transportation Program Director Name Role Phone Unavailable Primary Care Provider Unavailabl e Encounter Details Date Type Department Care Team (Late st Contact Info) Description 08/25/2020 Transcribed Document [facility] [place] Family Medicine [facility] [place] [address] ProviderMariela MD [facility] [place] [address] Social History Tobacco Use [...] Conversion Note - Historical ProviderMD - 08/25/2020 10:00 AM CDT Pain Assessment Entered On: 08/25/2020 16:44 EDT Performed On: 08/25/2020 10:04 EDT by Didi Villegas RN Intervention Information: traMADol Performed by Didi Villegas RN on 08/25/2020 09:04:00 EDT traMADol,50mg Oral Pain Assessment Pain Assessment : Follow-up assessment Pain Scale Goal : 3 Pain Scale Used : 0-10 Scale Didi Villegas RN - 08/25/2020 16:44 EDT Pain Scale Intensity : 2 Didi Villegas RN - 08/25/2020 16:44 EDT Image 4 - Images currently included in the form version of this document have not been included in the text rendition version of the form. documented in this encounter Plan of Treatment Not on file documented as of this encounter Visit Diagnoses Not on filedocumented in this encounter
--- OUTSIDE RECORDS SUMMARY | 2024-08-09 13:27 | XMS_ITS | Encounter Summary ---
Author Organization [employer] Address [address] [place] [address] Care Team Providers Care Exhibit Designer Name Role Phone Unavailable Primary Care Provider Unavailabl e Encounter Details Date Type Department Care Team (Late st Contact Info) Description 08/22/2018 Transcribed Document [facility] [place] Family Medicine [address] [place] [address] ProviderMariela MD [address] [place] [address] Social History Tobacco Use Types Packs/Day Years [...] Conversion Note - Historical ProviderMD - 08/22/2018 9:40 AM CDT Event Note Entered On: 08/22/2018 9:41 EDT Performed On: 08/22/2018 9:40 EDT by Iris Beyer Nurse - other Event Note Event Date/Time : 08/22/2018 7:30 EDT Event Details : Nursing assessment additional narrative Description of Event : Dr. Saenz notified of multiple cat scratches on operative knee. To bedside to assess. Stated to proceed with surgery. Orders received for additional antibiiotics. Iris Beyer Nurse - other - 08/22/2018 9:40 EDT Electronically signed by Chantal [facility] Conversion [employer] at 06/16/2022 8:22 PM CDT documented in this encounter Plan of Treatment Not on file documented as of this encounter Visit Diagnoses Not on filedocumented in this encounter
--- OUTSIDE RECORDS SUMMARY | 2024-08-09 13:27 | XMS_ITS | Encounter Summary ---
Author Organization [employer] Address [address] [place] [address] Care Team Providers Care Safety Associate Name Role Phone Unavailable Primary Care Provider Unavailabl e Encounter Details Date Type Department Care Team (Late st Contact Info) Description 06/26/2019 Transcribed Document [facility] [place] Medicine [address] [place] [address] ProviderMariela MD [address] [place] [address] Social History Tobacco Use Types Packs/Day Years [...] Conversion Note - Historical ProviderMD - 06/26/2019 7:07 PM CDT Education-Wound Care Entered On: 06/27/2019 3:55 EDT Performed On: 06/26/2019 19:07 EDT by Bibi Gallagher RN Teaching/Learning Assessment Barriers To Learning : None evident Individuals Taught : Patient Readiness to Learn : Cooperative Baseline Knowledge of Topic : Good Readiness to Learn : Explanation Learning Style Preferences Patient : Demonstration, Verbal explanation Bibi Gallagher RN - 06/27/2019 3:55 EDT Electronically signed by Maureen Cornejo Conversion [employer]ner at 06/16/2022 8:30 PM CDT documented in this encounter Plan of Treatment Not on file documented as of this encounter Visit Diagnoses Not on filedocumented in this encounter
--- OUTSIDE RECORDS SUMMARY | 2024-08-09 13:27 | XMS_ITS | Encounter Summary ---
Author Organization [employer] Address [address] [place] [address] Care Team Providers Care Decorator Mannequin Name Role Phone Unavailable Primary Care Provider Unavailabl e Encounter Details Date Type Department Care Team (Late st Contact Info) Description 06/26/2019 Transcribed Document [facility] [place] Family Medicine [address] [place] [address] ProviderMariela MD [address] [place] [address] Social History Tobacco Use Types Packs/Day Years [...] Conversion Note - Historical ProviderMD - 06/26/2019 1:03 PM CDT Nursing Discharge Summary Entered On: 06/26/2019 13:03 EDT Performed On: 06/26/2019 13:03 EDT by Anika Clark employment law attorney Documentation Patient Disposition, General : Discharge Discharge To : Rehabilitation unit/facility Mode Of Departure, General Discharge : Ambulance/ALS IV Discontinued : No Personal Belongings With Patient : Yes Discharge Instructions Reviewed With, Opportunity For Questions Given : Patient Patient Education Completed : Yes Teaching Method : Explanation, Printed materials Teaching Evaluation : Verbalizes understanding Anika Clark RN - 06/26/2019 13:03 EDT Electronically signed by Maureen Cornejo Conversion Natural Resources Professor Cerner at 06/16/2022 8:22 PM CDT documented in this encounter Plan of Treatment Not on file documented as of this encounter Visit Diagnoses Not on filedocumented in this encounter
--- OUTSIDE RECORDS SUMMARY | 2024-08-09 13:27 | XMS_ITS | Encounter Summary ---
Author Organization [employer] Address [address] [place] [address] Care Team Providers Care Stud Master/Mistress Name Role Phone Unavailable Primary Care Provider Unavailabl e Encounter Details Date Type Department Care Team (Late st Contact Info) Description 07/12/2019 Transcribed Document [facility] [place] Family Medicine [facility] [address] ProviderMariela MD [facility] [place] [address] Social History Tobacco Use Types [...] Conversion Note - Historical ProviderMD - 07/12/2019 9:00 PM CDT Pain Assessment Entered On: 07/13/2019 0:58 EDT Performed On: 07/12/2019 21:51 EDT by Bibi Gallagher RN Intervention Information: indomethacin Performed by Bibi Gallagher RN on 07/12/2019 20:51:00 EDT indomethacin,25mg Oral Pain Assessment Pain Assessment : Follow-up assessment Pain Scale Used : 0-10 Scale Pain Improved by Intervention : Yes Bibi Gallagher RN - 07/13/2019 0:58 EDT Pain Scale Intensity : 3 Bibi Gallagher RN - 07/13/2019 0:58 EDT Image 4 - Images currently included in the form version of this document have not been included in the text rendition version of the form. documented in this encounter Plan of Treatment Not on file documented as of this encounter Visit Diagnoses Not on filedocumented in this encounter
--- OUTSIDE RECORDS SUMMARY | 2024-08-09 13:27 | XMS_ITS | Encounter Summary ---
Author Organization [employer] Address [address] [place] [address] Care Team Providers Care 7Th Grade Teacher Name Role Phone Unavailable Primary Care Provider Unavailabl e Encounter Details Date Type Department Care Team (Late st Contact Info) Description 08/20/2020 Transcribed Document [facility] [place] Family Medicine [facility] [place] [address] ProviderMarieal MD [address] [place] [address] Social History Tobacco Use Types Packs/Day [...] Conversion Note - Historical ProviderMD - 08/20/2020 11:40 AM CDT Consult Phone Call Documentation Entered On: 08/20/2020 21:17 EDT Performed On: 08/20/2020 11:40 EDT by LISE SNYDER Phone Call for Consults Consult Phone Call/Page Attempt : First call Consult Reason : medical management Physician Requesting Consult : NIMO EPPS MD-ORT Physician Requested for Consult : DONNA DRIVER MD-INT Provider Service Notified Name : Internal medicine Physician Covering for Consult : DONNA DRIVER MD-INT Date and Time Call Returned : 08/20/2020 21:15 EDT Physician Returning Call : DONNA DRIVER MD-INT LISE SNYDER - 08/20/2020 21:15 EDT documented in this encounter Plan of Treatment Not on file documented as of this encounter Visit Diagnoses Not on filedocumented in this encounter
--- OUTSIDE RECORDS SUMMARY | 2024-08-09 13:27 | XMS_ITS | Encounter Summary ---
Author Organization [employer] Address [address] [place] [address] Care Team Providers Care Sewing Room Supervisor Name Role Phone Unavailable Primary Care Provider Unavailabl e Encounter Details Date Type Department Care Team (Late st Contact Info) Description 08/23/2018 Transcribed Document [facility] [place] Family Medicine [facility] [place] [address] ProviderMariela MD [address] [place] [address] Social History Tobacco Use Types [...] Cerner Conversion Note - Mariela ProviderMD - 08/23/2018 11:44 AM CDT Patient Education Materials Follows: What to [...] no longer using the walker Other: ?? Take aspirin 81mg two times daily Remove morena bandage and cotton on 08/24 and cover incision with white gauze squares and tube netting then put on compression stocking. Change white gauze squares daily and tube netting as needed for 5 to 7 days. If there is any drainage after 7 days call the office and let them know. ?? Wear compression stockings on BOTH LEGS for 6 weeks removing once daily to inspect skin and shower ?? Use ice therapy for 20-30 minutes at a time and leave off for 20-30 minutes at a time. Always keep a towel or cloth between the ice pack and your skin ?? Continue to use Incentive Spirometer 10 times an hour while awake for one month to help prevent pneumonia Contact a health care provider if: ?? [...] Barley. Bulgur wheat. Millet. Bran muffins. Popcorn. [place] wafer crackers. ?? Vegetables Sweet potatoes. Spinach. Kale. Artichokes. Cabbage. Broccoli. Green peas. Carrots. Squash. ?? Fruits Berries. Pears. Apples. Oranges. Avocados. Prunes and raisins. Dried figs. ?? Meats and Other Protein Sources [place], kidney, call, and soy beans. Split peas. [...] gray has 11 g of protein. ?? [place] seeds ??? 1 oz has 5.5 g [...] floor. ?? Place frequently used items in [id number] places ?? Keep electrical cables out of [...] ? Using the bathroom. ? Using household communications systems engineer or toxic chemicals. ? Touching or [...]
--- OUTSIDE RECORDS SUMMARY | 2024-08-09 13:27 | XMS_ITS | Encounter Summary ---
Author Organization [employer] Address [address] [place] [address] Care Team Providers Care Bag Shop Worker Name Role Phone Unavailable Primary Care Provider Unavailabl e Encounter Details Date Type Department Care Team (Late st Contact Info) Description 08/23/2018 Transcribed Document [facility] [place] [address] [place] [address] ProviderMariela MD [address] [place] [address] Social History Tobacco Use Types [...] Conversion Note - Historical ProviderMD - 08/23/2018 9:50 AM CDT UM Authorization Entered On: 08/23/2018 9:51 EDT Performed On: 08/23/2018 9:50 EDT by Jett Arroyo Mkt Laundry Aid-Utilization Mgt Primary Insurance Authorization Authorization and Policy Numbers : Insurance 1 Health Plan: [facility] MEDICARE ADVANTAGE Policy Number: [id number] Authorization Number: Insurance Primary Name : [facility] medicare advantage [id number] Authorization Status-Primary : Awaiting callback Reference Number-Primary : [id number] Authorized Service Begin Date-Primary : 08/22/2018 EDT Authorization Comments-Primary : Clinicals faxed to [facility] via Min Historical Authorization Comments-Primary : No Authorization Comments Found Jett Arroyo Mkt Laundry Aid-Utilization Mgt - 08/23/2018 9:50 EDT documented in this encounter Plan of Treatment Not on file documented as of this encounter Visit Diagnoses Not on filedocumented in this encounter
--- OUTSIDE RECORDS SUMMARY | 2024-08-09 13:27 | XMS_ITS | Encounter Summary ---
Author Organization [employer] Address [address] [place] [address] Care Team Providers Care Managing Manager Name Role Phone Unavailable Primary Care Provider Unavailabl e Encounter Details Date Type Department Care Team (Late st Contact Info) Description 06/27/2019 Transcribed Document [facility] Family Medicine [address] [place] [address] ProviderMariela MD [facility] [place] [address] Social History Tobacco Use Types [...] Conversion Note - Historical ProviderMD - 06/27/2019 12:01 PM CDT Treatment Intervention, PT Entered On: 07/03/2019 12:23 EDT Performed On: 07/03/2019 12:16 EDT by MIGDALIA TOBIN PTA General Information, PT Visit Type, PT : Treatment Note Patient Orders : Order Date Order Ordering 06/26/2019 20:17 PT Evaluation and Treatment Ordered By: DONNA DRIVER MD-INT 06/27/2019 12:01 PT Additional Treatment Ordered By: OSKAR MARTÍNEZ PT Active Diagnoses : 06/27/2019 12:00 Acute kidney failure, unspecified 06/27/2019 [...] site 06/27/2019 12:00 Venous insufficiency (chronic) (peripheral) Therapy Diagnosis, PT : Decreased strength and mobility s/p left knee prosthetic hardware infection Admission Date : 06/26/2019 18:33 Co-treated by, PT : Occupational Therapist Personal Devices : Personal Devices Glasses Assistive Devices : Assistive Devices No Devices Recorded Precautions in Place : Other: LLE brace AAT's MIGDALIA TOBIN PTA - 07/03/2019 12:16 EDT General Status Patient Received Status : Supine in bed Treatment Start Time : 07/03/2019 8:49 EDT Patient Left Status : Up in chair, All needs met and within reach RN/PCT Informed Comment : EDDIE jones to treat. Treatment End Time : 07/03/2019 9:13 EDT Treatment Time : 24 Minute(s) MIGDALIA TOBIN PTA - 07/03/2019 12:16 EDT Therapeutic Exercises PT Therapeutic Exercise Grid Exercise #1 Exercises : Ankle pumps, Gluteal squeezes, Quadricep sets Location : Lower extremity Laterality : Bilateral Position : Sitting supported Reps : 10 Sets : 1 Resistance : None Assistance : Supervision Cueing : Moderate verbal cues MIGDALIA TOBIN PTA - 07/03/2019 12:16 EDT Functional Mobility Mobility Grid Supine to Sit : Rehab Minimal assistance Sit to Stand : Rehab Minimal assistance Stand to Sit : Rehab Minimal assistance MIGDALIA TOBIN PTA - 07/03/2019 12:16 EDT Bed Comment : verbal cues for hand placement during transfers MIGDALIA TOBIN PTA - 07/03/2019 12:16 EDT Gait Training/Assessment, PT Weight Bearing Status Maintained : Yes Weight Bearing Status : As tolerated left lower extremity Gait Assistance Level : Assist, minimal Walking Distance : 18ft with chair follow Ambulatory Devices : Gait belt, Walker, front wheel Gait Deviations : Yes Left Lower Gait Deviation : Weight bearing, decreased Right Lower Gait Deviation : Step length, decreased Gait Training Comment : patient was cued for gait sequence to off weight LLE; patient complains of shoulder pain and fatigues quickly requiring chair follow MIGDALIA TOBIN PTA - 07/03/2019 12:16 EDT Cognitive Treatment, PT Orientation : Oriented x 4 MIGDALIA TOBIN PTA - 07/03/2019 12:16 EDT Edu Topics Physical Therapy Education Grid Gait Training : Returns demonstration, Needs further teaching Role of Physical Therapy : Returns demonstration Transfer Training : Returns demonstration, Needs further teaching MIGDALIA TOBIN PTA - 07/03/2019 12:16 EDT Indication Assesessment, PT Physical Therapy Indicated : Yes MIGDALIA TOBIN PTA - 07/03/2019 12:16 EDT Plan of Care, PT PT Tx Plan/Goals Established w Patient : Yes MIGDALIA TOBIN PTA - 07/03/2019 12:16 EDT Short Term Goals Mobility/Bed Mobility STG PT Grid Goal #1 Activity : Supine to sit Assist : Assist, minimal Equipment : Bed, hospital Date to Meet : 07/11/2019 EDT Goal Status : Goal met Date Met : 06/28/2019 EDT MIGDALIA TOBIN PTA - 07/03/2019 12:16 EDT Transfer STG Grid Goal #1 Destination : Chair, with arms Type : Other: step-to Assist : Assist, moderate Equipment : Walker, front wheel Date to Meet : 07/11/2019 EDT Goal Status : Goal met Date Met : 06/28/2019 EDT Comment : x 1 MIGDALIA TOBIN PTA - 07/03/2019 12:16 EDT Ambulation STG Grid Goal #1 Device : Walker, front wheel Distance : 25' Assist : Assist, moderate Date to Meet : 07/11/2019 EDT Goal Status : Progressing, continue Comment : x 2 MIGDALIA TOBIN PTA - 07/03/2019 12:16 EDT Correction Goals Mobility/Bed Mobility LTG PT Grid Goal #1 Activity : Supine to sit Assist : Independent, modified Equipment : Bed, hospital Date to Meet : 07/25/2019 EDT Goal Status : Progressing, continue MIGDALIA TOBIN PTA - 07/03/2019 12:16 EDT Transfer LTG Grid Goal #1 Destination : Chair, with arms Type : Other: step-to Assist : Assist, minimal Equipment : Walker, front wheel Date to Meet : 07/25/2019 EDT Goal Status : Goal met Date Met : 07/02/2019 EDT Comment : x 2 MIGDALIA TOBIN PTA - 07/03/2019 12:16 EDT Ambulation LTG Grid Goal #1 Device : Walker, front wheel Distance : 50' Assist : Assist, minimal Date to Meet : 07/25/2019 EDT Goal Status : Progressing, continue Comment : x 2 MIGDALIA TOBIN PTA - 07/03/2019 12:16 EDT Treatment Note Subjective Comment : Patient agrees to treat Assessment : Patient has improved mobility this date with ability to amb and would benefit from continued PT to progress endurance as tolerated Plan for Treatment : Continue per POC. MIGDALIA TOBIN PTA - 07/03/2019 12:16 EDT Pain Assessment Pain Comment : patient states her shoulders start to hurt with amb MIGDALIA TOBIN PTA - 07/03/2019 12:16 EDT Image 1 - Images currently included in the form version of this document have not been included in the text rendition version of the form. Anticipated Discharge Needs, OT/PT Anticipated Discharge to : Unit, rehabilitation, Unit, senior care MIGDALIA TOBIN PTA - 07/03/2019 12:16 EDT [place] PT Charges UTILITY BAGGER PT Therap. Exercise 15 min-UTILITY BAGGER : 1 Gait Training Each 15 Min-UTILITY BAGGER : 1 MIGDALIA TOBIN PTA - 07/03/2019 12:16 EDT documented in this encounter Plan of Treatment Not on file documented as of this encounter Visit Diagnoses Not on filedocumented in this encounter
--- OUTSIDE RECORDS SUMMARY | 2024-08-09 13:27 | XMS_ITS | Encounter Summary ---
Author Organization [employer] Address [address] [place] [address] Care Team Providers Care Storeroom Attendant Name Role Phone Unavailable Primary Care Provider Unavailabl e Encounter Details Date Type Department Care Team (Late st Contact Info) Description 08/24/2020 Transcribed Document [facility] [place] [address] [place] [address] ProviderMariela MD [address] [place], [place] [id number] Social History Tobacco Use Types Packs/Day Years [...] Note - Historical ProviderMD - 08/24/2020 5:00 PM CDT Chart Check - Review Order Profile Entered On: 08/24/2020 16:21 EDT Performed On: 08/24/2020 17:00 EDT by Didi Villegas, RN Chart Check Powerplans Initiated/Discontinued as Appropriate : Yes All Active Orders Reviewed : Yes Didi Villegas, RN - 08/24/2020 16:21 EDT Electronically signed by Chantal [facility] Conversion Photoengraving Finisher Cerner at 06/16/2022 8:14 PM CDT documented in this encounter Plan of Treatment Not on file documented as of this encounter Visit Diagnoses Not on filedocumented in this encounter
--- OUTSIDE RECORDS SUMMARY | 2024-08-09 13:27 | XMS_ITS | Encounter Summary ---
Author Organization [employer] Address [address] [place] [address] Care Team Providers Care Svp Name Role Phone Unavailable Primary Care Provider Unavailabl e Encounter Details Date Type Department Care Team (Late st Contact Info) Description 08/20/2020 Transcribed Document [facility] [place] [facility] [place] [address] ProviderMariela MD [facility] [place] [address] Social History Tobacco Use Types [...] Conversion Note - Historical ProviderMD - 08/20/2020 12:07 PM CDT PAT Adult Entered On: 08/20/2020 12:11 EDT Performed On: 08/20/2020 12:07 EDT by THIERRY GOODRICH RN Vital Measurements Temperature Source : Temporal artery scanning Temperature Mode : Fahrenheit Temperature, Fahrenheit : 98.2 Deg F Clinical Temperature, C : 36.8 Deg C THIERRY GOORDICH RN - 08/20/2020 15:35 EDT Pulse Method : Pulse Oximetry Pulse Source : Radial, Right Peripheral Pulse Rate : 102 bpm (HI) Pulse Rhythm : Regular Respiratory Rate : 16 Breaths/Min Blood Pressure Location : Arm, left upper Blood Pressure Source : Non-Invasive BP Device Blood Pressure Position : Side, Right Systolic Blood Pressure : 138 mmHg Diastolic Blood Pressure : 70 mmHg Oxygen Saturation : 97 % Oxygen Therapy Mode : Room air THIERRY GOODRICH RN - 08/20/2020 15:27 EDT Pain Assessment Pain Assessment : Initial assessment Pain Scale Used : 0-10 Scale Pain Location Comment : R FOOT THIERRY GOODRICH RN - 08/20/2020 12:07 EDT Height and Weight, Clinical Dosing Height Source : Stated Height Entry Format : [place] Height, Feet : 5 ft(Converted to: 152 cm, 60 Inch) Height, Inches : 0 Inch(Converted to: 0 ft 0 Inch, 0.00 cm) Clinical Height : 152.4 cm Weight Source : Standing scale Weight Entry Format : [place] Clinical Dosing Weight : 90.91 kg Weight, Pounds : 200 lb Body Surface Area (BSA) : 1.87 m2 Body Mass Index : 39.1 kg/m2 (HI) [place] Body Weight : 45 kg THIERRY GOODRICH RN - 08/20/2020 12:07 EDT Health Histories Smoking Status : Never (less than 100 in lifetime; none in last 30 days) Smokeless Tobacco Status : Never THIERRY GOODRICH RN - 08/20/2020 12:07 EDT Social History (As Of: 08/20/2020 12:11:26 EDT) Tobacco: Smoking Status Never smoker. Used Tobacco, but Quit No. (Last Updated: 10/16/2016 11:53:46 EDT by RUI EMMANUEL RN) Never (less than 100 in lifetime) Smoking Status. Never Smokeless Tobacco Status. (Last Updated: 08/13/2020 10:21:56 EDT by BINDU MOREIRA, EDDIE) Alcohol: Alcohol Use History No. (Last Updated: 10/16/2016 11:53:51 EDT by RUI EMMANUEL RN) Alcohol Use History No. (Last Updated: 08/13/2020 10:21:56 EDT by BINDU MOREIRA, EDDIE) Substance Abuse: Drug Use Hx: No. [...] by RUI EMMANUEL, RN) Infectious Disease History Where was the COVID-19 Testing completed? : [facility] Where are the test results? : Paper Copy on chart Date of COVID-19 test known? : Yes Date of COVID-19 Test : 08/16/2020 EDT THIERRY GOODRICH RN - 08/20/2020 15:27 EDT Has the patient ever been tested for COVID-19? : Yes, Patient stated results Negative Does patient have symptoms of COVID-19? : No COVID19 Screening : No Experiencing Infectious Disease Symptoms : No symptoms Physical contact outside [place] in the last 30 days : No Infectious Disease History : Chicken pox/Shingles, Measles Exposure to Contagious Illness : No Tuberculosis Symptoms : None THIERRY GOODRICH RN - 08/20/2020 12:07 EDT COVID19 PreProcedure Screening Is this an Emergent or Add on Procedure? : No Date PreProcedure COVID-19 test known? : Yes Date of PreProcedure COVID-19 : 08/16/2020 EDT Has patient been isolated since the test : Yes Exposed to COVID19 symptoms since test? : No THIERRY GOODRICH RN - 08/20/2020 15:27 EDT Anesthesia/Transfusion History Family History of Anesthesia Reaction : Prior transfusion without reaction Transfusion History : Prior anesthesia without reaction Family History of Anesthesia Reaction : None THIERRY GOODRICH RN - 08/20/2020 12:07 EDT Functional Assessment Functional ADL Evaluation Index EBN Bathing : Requires assistance (1) Dressing : Requires assistance (1) Toileting : Dependent (0) Transferring Bed or Chair : Dependent (0) Continence : Independent (2) Feeding : Independent (2) THIERRY GOODRICH RN - 08/20/2020 12:07 EDT ADL Index Score : 6 THIERRY GOODRICH RN - 08/20/2020 12:07 EDT Advance Directive Patient has Advance Directive *Q : No, patient refuses Advance Directive information THIERRY GOODRICH RN - 08/20/2020 12:07 EDT Spiritual/Cultural Needs Any Spiritual/Cultural Needs or Requests : No THIERRY GOODRICH RN - 08/20/2020 15:27 EDT [place] Suicide Severity Rating Scale (C-SSRS) CSSRS Past Month Wish to be : No CSSRS Past Month Suicidal Thoughts : No CSSRS Lifetime Suicide Behavior : No Suicide Severity Rating Score : 0 Suicide Severity Rating : No Additional Care Required at this time Thoughts of Harming/Killing Others : No THIERRY GOODRICH RN - 08/20/2020 15:27 EDT Psychosocial History Do You Have a History of the Following? : Patient denies history Currently in Unsafe Situation : No Do You Have a Support System? : Yes THIERRY GOODRICH RN - 08/20/2020 15:27 EDT Teaching/Learning Assessment Barriers To Learning : None evident Individuals Taught : Patient, Child Readiness to Learn : Cooperative Baseline Knowledge of Topic : Good Readiness to Learn : Explanation, Printed materials Learning Style Preferences Patient : Printed materials, Verbal explanation Learning Style Preferences Family : Printed materials, Verbal explanation THIERRY GOODRICH RN - 08/20/2020 15:27 EDT Education Topics, Periop Preadmission Perioperative Education Grid Arrival Time/Place : Verbalizes understanding Falls : Verbalizes understanding IV's : Verbalizes understanding NPO Status/Directions : Verbalizes understanding Pain Management : Verbalizes understanding Preprocedure Preparations : Verbalizes understanding Preprocedure Tests/Labs : Verbalizes understanding Responsible Adult : Verbalizes understanding Take/Hold Medications Pre-Procedure : Verbalizes understanding THIERRY GOODRICH RN - 08/20/2020 15:27 EDT General Info Preferred Name : Sy Arrived From : Home Mode of Arrival on Unit : Wheelchair Patient Arrival Date/Time : 08/20/2020 11:20 EDT Legal Guardian : Son Legal Guardian : No Support Person/Patient Merchandising Manager : Yes Support Person/Pt Rep Name : Sam Barlow Contact Password : Keily Support Person/Pt Rep Contact Information : son Vipul) [phone] (Nancy Rust [phone] Want Family/Rep/Phys Notified of Admit : No Emergency Contact #1 : Sam Barlow Emergency Contact #1 Emergency Contact #1 Relationship : son Emergency Contact #2 : - Emergency Contact #2 Phone Number : - Emergency Contact #2 Relationship : - Information Obtained From : Patient Primary Language : Nigerian Preferred Communication Mode : Verbal Communication Barrier : None Junior Loan Processor Needed : No Currently Lactating : No Status : N/A THIERRY GOODRICH RN - 08/20/2020 15:27 EDT Jay Scale Jay Sensory Perception : No impairment Jay Moisture : Rarely moist Jay Activity : Walks occasionally Jay Mobility : Very limited Jay Nutrition : Excellent Jay Friction and Shear : No apparent problem Jay Score : 20 THIERRY GOODRICH RN - 08/20/2020 15:27 EDT Sleep Apnea Risk Assmt BiPAP/CPAP Ordered for Home Use : Yes Hx of Obstructive Sleep Apnea Diagnosis : Yes BiPAP/CPAP Used at Home : Yes Age over 50 Years Old : Yes Gender Male : No THIERRY GOODRICH RN - 08/20/2020 12:07 EDT Pain Scale Intensity : 9 THIERRY GOODRICH RN - 08/20/2020 12:07 EDT Image 4 - Images currently included in the form version of this document have not been included in the text rendition version of the form. documented in this encounter Plan of Treatment Not on file documented as of this encounter Visit Diagnoses Not on filedocumented in this encounter
--- OUTSIDE RECORDS SUMMARY | 2024-08-09 13:27 | XMS_ITS | Encounter Summary ---
Author Organization [employer] Address [address] [place] [address] Care Team Providers Care Testing Tech Name Role Phone Unavailable Primary Care Provider Unavailabl e Encounter Details Date Type Department Care Team (Late st Contact Info) Description 07/12/2019 Transcribed Document [facility] [place] [address] [place] [address] ProviderMariela MD [address] [place], [place] [id number] Social History Tobacco Use Types Packs/Day Years [...] Note - Historical ProviderMD - 07/12/2019 9:00 AM CDT Pain Assessment Entered On: 07/12/2019 13:12 EDT Performed On: 07/12/2019 11:43 EDT by Caitlyn Chauhan Rn Intervention Information: indomethacin Performed by KASSI WATSON RN on 07/12/2019 10:43:00 EDT indomethacin,25mg Oral Pain Assessment Pain Assessment : Follow-up assessment Pain Intervention, Drug : Medicated Pain Improved by Intervention : Yes Caitlyn Chauhan Rn - 07/12/2019 13:11 EDT Electronically signed by Maureen Cornejo Conversion Registered Nurse Post Partum Cerner at 06/16/2022 8:16 PM CDT documented in this encounter Plan of Treatment Not on file documented as of this encounter Visit Diagnoses Not on filedocumented in this encounter
--- OUTSIDE RECORDS SUMMARY | 2024-08-09 13:27 | XMS_ITS | Encounter Summary ---
Author Organization [email or web address] Address [address] [place] [address] Care Team Providers Care Music Instructor Name Role Phone Unavailable Primary Care Provider Unavailabl e Encounter Details Date Type Department Care Team (Late st Contact Info) Description 07/11/2019 Transcribed Document [facility] [place] [facility] [place] [address] ProviderMariela MD [facility] [place] [address] Social History Tobacco Use Types [...] Conversion Note - Historical ProviderMD - 07/11/2019 1:28 PM CDT Interdisciplinary Rounds Entered On: 07/11/2019 13:29 EDT Performed On: 07/11/2019 13:28 EDT by MASSIEL HENDERSON PharmD, DURGA Interdisciplinary Rounds Working Summary Patient's Priority Needs : IV abx -> plan 8 wks then transition to PO PT/OT Brace in place-> dressing changed daily Current DRG/LOS : 560 Aftercare, musculoskeletal & connective tissue 21-25 days Anticipated DC 07/21/2019 Pharmacist Interdisciplinary Rounds Note : Ceftriaxone u nitl 08/10 then PO for life. Ensuring Warfarin 2mg daily doesn't increase INR > 2, want < 2 for DVT prophylaxis only. MASSIEL HENDERSON PharmD, DURGA - 07/11/2019 13:28 EDT documented in this encounter Plan of Treatment Not on file documented as of this encounter Visit Diagnoses Not on filedocumented in this encounter
--- OUTSIDE RECORDS SUMMARY | 2024-08-09 13:27 | XMS_ITS | Encounter Summary ---
Author Organization [employer] Address [address] [place] [address] Care Team Providers Care Industry Consultant Name Role Phone Unavailable Primary Care Provider Unavailabl e Encounter Details Date Type Department Care Team (Late st Contact Info) Description 07/11/2019 Transcribed Document [facility] [place] [facility] [place] [place] [address] ProviderMariela MD [facility] [place] [address] Social History Tobacco Use Types [...] Conversion Note - Historical ProviderMD - 07/11/2019 5:54 PM CDT Patient: SOFIA BARLOW Age: 79 [...] pain under control, no trouble w. urination. ???Right ankle pain much better on Indocin ???Today participated more with PT/OT Review of Systems Constitutional: [...] 0.9% 50 mL 2 Gram, IV Piggyback, [id number] cyanocobalamin 1,000 mcg tab 5,000 mcg 5 [...] Oral, Q4H fluticasone 0.05% nasal spray 2 [place], Nostrils Both, BID magnesium hydroxide 8% liq [...] Sleep apnea Physical Examination VS/Measurements Vital Measurements 07/11/2019 15:00 EDT Systolic Blood Pressure 128 mmHg Diastolic Blood Pressure 46 mmHg LOW Mean Arterial Pressure (MAP)-BMDI 58 Temperature Source Oral Temperature Mode Fahrenheit Temperature, Fahrenheit 98 Deg F Clinical Temperature, C 36.7 Deg C Heart Rate Monitored 87 bpm Respiratory Rate 16 Breaths/Min General: Alert and [...] % 22.4 % Lymph # 1.61 x10(3)/uL [place] % 12.7 % HI [place] # 0.91 K/uL Eos % 6.3 % [...] precautions. Sleep apnea precautions. Stress ulcer prophylaxis.. documented in this encounter Plan of Treatment Not on file documented as of this encounter Visit Diagnoses Not on filedocumented in this encounter
--- OUTSIDE RECORDS SUMMARY | 2024-08-09 13:27 | XMS_ITS | Encounter Summary ---
Author Organization [employer] Address [address] [place] [address] Care Team Providers Care Engravings Polisher Name Role Phone Unavailable Primary Care Provider Unavailabl e Encounter Details Date Type Department Care Team (Late st Contact Info) Description 08/22/2018 Transcribed Document [facility] [place] [facility] [place] [address] ProviderMariela MD [facility] [place] [address] Social History Tobacco Use Types [...] Conversion Note - Historical ProviderMD - 08/22/2018 9:00 PM CDT Pain Assessment Entered On: 08/22/2018 23:38 EDT Performed On: 08/22/2018 21:43 EDT by Nishi Osuna RN Intervention Information: acetaminophen Performed by Nishi Osuna RN on 08/22/2018 20:43:00 EDT acetaminophen,1000mg Oral Pain Assessment Pain Assessment : Follow-up assessment Pain Scale Goal : 3 Pain Scale Used : 0-10 Scale Pain Intervention, Drug : Medicated Pain Improved by Intervention : Yes Nishi Osuna RN - 08/22/2018 23:38 EDT Pain Scale Intensity : 0 Nishi Osuna RN - 08/22/2018 23:38 EDT Image 4 - Images currently included in the form version of this document have not been included in the text rendition version of the form. Electronically signed by Maureen Cornejo Conversion Medical Billing Representative Cerner at 06/16/2022 8:30 PM CDT documented in this encounter Plan of Treatment Not on file documented as of this encounter Visit Diagnoses Not on filedocumented in this encounter
--- OUTSIDE RECORDS SUMMARY | 2024-08-09 13:27 | XMS_ITS | Encounter Summary ---
Author Organization [employer] Address [address] [place] [address] Care Team Providers Care Chinese Teacher Name Role Phone Unavailable Primary Care Provider Unavailabl e Encounter Details Date Type Department Care Team (Late st Contact Info) Description 08/24/2020 Transcribed Document [facility] [place] [facility] [place] [address] ProviderMariela MD [address] [place] [address] Social History Tobacco Use Types Packs/Day [...] Min Conversion Note - Historical ProviderMD - 08/24/2020 4:00 AM CDT Pain Assessment Entered On: 08/24/2020 5:52 EDT Performed On: 08/24/2020 4:40 EDT by Rayna Carrizales Rn Intervention Information: traMADol Performed by Rayna Carrizales Rn on 08/24/2020 03:40:00 EDT traMADol,50mg Oral Pain Assessment Pain Assessment : Follow-up assessment Pain Scale Goal : 3 Pain Scale Used : 0-10 Scale Pain Improved by Intervention : Yes Rayna Carrizales Rn - 08/24/2020 5:52 EDT Pain Scale Intensity : 3 Rayna Carrizales Rn - 08/24/2020 5:52 EDT Image 4 - Images currently included in the form version of this document have not been included in the text rendition version of the form. documented in this encounter Plan of Treatment Not on file documented as of this encounter Visit Diagnoses Not on filedocumented in this encounter
--- OUTSIDE RECORDS SUMMARY | 2024-08-09 13:27 | XMS_ITS | Encounter Summary ---
Author Organization [employer] Address [address] [place] [address] Care Team Providers Care Rehabilitation Attendant Name Role Phone Unavailable Primary Care Provider Unavailabl e Encounter Details Date Type Department Care Team (Late st Contact Info) Description 06/27/2019 Transcribed Document [facility] [place] [address] [place] [address] ProviderMariela MD [address] [place] [address] Social History Tobacco Use Types Packs/Day Years [...] Conversion Note - Historical ProviderMD - 06/27/2019 9:37 AM CDT [place] Drug Regimen Review, [facility] Entered On: 06/27/2019 9:39 EDT Performed On: 06/27/2019 9:37 EDT by MASSIEL HENDERSON PharmD, BCPS Drug Regimen Review Drug Regimen Review for Clinical Issues : Yes-Issues found during review Physicain Contacted Orders Completed : Yes Drug Regimen Review Notes : Patient's home medication history completed and magnesium product changed to appropriate salt form and updated in inpatient medication orders. MASSIEL HENDERSON PharmD, BCPS - 06/27/2019 9:37 EDT documented in this encounter Plan of Treatment Not on file documented as of this encounter Visit Diagnoses Not on filedocumented in this encounter
--- OUTSIDE RECORDS SUMMARY | 2024-08-09 13:27 | XMS_ITS | Encounter Summary ---
Author Organization [employer] Address [address] [place] [address] Care Team Providers Care Toby Maker Name Role Phone Unavailable Primary Care Provider Unavailabl e Encounter Details Date Type Department Care Team (Late st Contact Info) Description 06/26/[address] [facility] [place] Family Medicine [address] [place] [address] ProviderMariela MD [address] [place] [address] Social History Tobacco Use Types [...] Conversion Note - Historical ProviderMD - 06/26/2019 1:38 PM CDT Patient: SOFIA GILL Age: 79 years Sex: Female : 1940 Associated Diagnoses: None Author: ARA JONES MD-INF ID Progress Note CC: Left knee pain Current antimicrobial therapy: Rocephin IV Subjective: Patient slowly improving no fevers hemodynamic stable moving to LTAC today. Objective Vitals Signs (last 24 hrs) Last Charted Minimum Maximum Temp 98.9 (JUN 25 09:55) 97.2 (JUN 25 05:13) 99.1 (JUN 24 14:49) Mon HR 88 (JUN 25 12:30) 73 (JUN 25 05:13) 104 (JUN 25 12:00) Resp Rate 16 (JUN 25 09:55) 14 (JUN 24 18:16) 18 (JUN 25 02:21) SBP 123 (JUN 25 12:30) 110 (JUN 24 14:49) 134 (JUN 25 11:00) DBP L 51 (JUN 25 12:30) L 39 (JUN 24 21:41) 65 (JUN 25 12:00) MAP 69 (JUN 25 12:30) 59 (JUN 24 21:41) 77 (JUN 25 12:00) SpO2 99 (JUN 25 12:30) L 81 (JUN 25 09:55) 100 (JUN 24 21:41) Physical Examination: Gen: Alert, in no acute [...] extremities Labs:Labs (Last four charted values) WBC 9.9 (JUN 25) H 15.9 (JUN 23) H 20.4 (JUN 22) H 24.5 (JUN 21) HB L 7.6 (JUN 25) L 9.0 (JUN 23) L 9.2 (JUN 22) L 7.5 (JUN 21) HCT L 24.4 (JUN 25) L 28.6 (JUN 23) L 29.0 (JUN 22) L 23.7 (JUN 21) Plt H 406 (JUN 25) H 413 (JUN 23) H 403 (JUN 22) H 416 (JUN 21) Na 138 (JUN 25) 139 (JUN 24) 139 (JUN 23) L 134 (JUN 22) K 4.6 (JUN 25) 4.6 (JUN 24) 4.5 (JUN 23) 4.8 (JUN 22) Cl 106 (JUN 25) 109 (JUN 24) 109 (JUN 23) 103 (JUN 22) CO2 28 (JUN 25) 24 (JUN 24) 24 (JUN 23) 28 (JUN 22) BUN 9 (JUN 25) 9 (JUN 24) 16 (JUN 23) H 28 (JUN 22) Cr L 0.53 (JUN 25) L 0.46 (JUN 24) 0.63 (JUN 23) 0.97 (JUN 22) Glu R 97 (JUN 25) 85 (JUN 24) 104 (JUN 23) H 107 (JUN 22) Ca L 7.6 (JUN 25) L 7.3 (JUN 24) L 7.0 (JUN 23) L 7.4 (JUN 22) Lactic 1.1 (JUN 16) PT 11.4 (JUN 23) 11.5 (JUN 22) H 12.4 (JUN 20) INR 1.1 (JUN 23) 1.1 (JUN 22) H 1.2 (JUN 20) AST 12 (JUN 25) 16 (JUN 23) 20 (JUN 22) 25 (JUN 21) ALT 13 (JUN 25) 16 (JUN 23) 16 (JUN 22) 16 (JUN 21) ALK P 55 (JUN 25) 77 (JUN 23) 92 (JUN 22) 103 (JUN 21) T Bili 0.3 (JUN 25) 0.2 (JUN 23) 0.2 (JUN 22) 0.2 (JUN 21) PTN L 5.1 (JUN 25) L 4.6 (JUN 23) L 4.8 (JUN 22) L 4.4 (JUN 21) ALB L 2.4 (JUN 25) L 1.5 (JUN 23) L 1.6 (JUN 22) L 1.4 (JUN 21) Micro: [facility]: 06/15 [facility] [...] - wbc down 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
--- OUTSIDE RECORDS SUMMARY | 2024-08-09 13:27 | XMS_ITS | Encounter Summary ---
Author Organization [employer] Address [address] [place] [address] Care Team Providers Care Soccer Ball Assembler Name Role Phone Unavailable Primary Care Provider Unavailabl e Encounter Details Date Type Department Care Team (Late st Contact Info) Description 08/22/2018 Transcribed Document [facility] [place] Family Medicine [address] [place] [address] ProviderMariela MD [address] [place] [address] Social History Tobacco Use Types Packs/Day Years [...] 12:12 PM CDT Pain Assessment Entered On: 08/26/2018 5:40 EDT Performed On: 08/26/2018 3:36 EDT by Kamini Sullivan RN Intervention Information: oxyCODONE Performed by Kamini Sullivan RN on 08/26/2018 02:36:00 EDT oxyCODONE,5mg Oral,Pain (Moderate 4-6) Pain Assessment Pain Assessment : Follow-up assessment Pain Scale Goal : 3 Pain Intervention, Drug : Medicated Pain Improved by Intervention : Yes Kamini Sullivan RN - 08/26/2018 5:40 EDT documented in this encounter Plan of Treatment Not on file documented as of this encounter Visit Diagnoses Not on filedocumented in this encounter
--- OUTSIDE RECORDS SUMMARY | 2024-08-09 13:27 | XMS_ITS | Encounter Summary ---
Author Organization [employer] Address [address] [place] [address] Care Team Providers Care Application Dba Name Role Phone Unavailable Primary Care Provider Unavailabl e Encounter Details Date Type Department Care Team (Late st Contact Info) Description 08/20/2020 Transcribed Document [facility] [place] Family Medicine Replaced by [facility] [place] [address] ProviderMariela MD [address] [place] [address] Social History Tobacco Use Types [...] Conversion Note - Historical Provider, - 08/20/2020 8:23 PM CDT Evaluation, Occupational Therapy Entered On: 08/21/2020 13:41 EDT Performed On: 08/21/2020 13:24 EDT by EDIN DRAKE OTR/Bartolo General Information, OT Visit Type, OT : Initial evaluation Patient Orders : Order Date Order Ordering 08/20/2020 20:23 OT Evaluation and Treatment Ordered By: SOLOMON MCCRACKEN PA-C 08/20/2020 20:23 OT Treatment Instructions Ordered By: SOLOMON MCCRACKEN PA-C Active Diagnoses [...] knee surgery Admission Date : 08/20/2020 04:48 Assisted by, OT : Physical Therapist Personal Devices : Personal Devices No Devices Recorded Assistive Devices : Assistive Devices No Devices Recorded Precautions in Place : Fall prevention measures, Other: no quad activity permitted and NWB RLE General Information Comment, OT : pt is a pleasant female admitted s/p R TKA revision and quad tendon repair . pt is NWB and is currently in fully leg cast RLE, quad activity is not permitted . pt with h/o multiple knee surgeries, A-fib , MO and lymphedema EDIN DRAKE OTR/Bartolo - 08/21/2020 13:24 EDT General Status Patient Received Status : Supine in bed, Other: full leg cast RLE, scds Treatment Start Time : 08/21/2020 9:29 EDT Patient Left Status : Long sitting in bed, RN/PCT informed, All needs met and within reach, Other: RLE full leg cast propped on pillows , scds RN/PCT Informed Comment : RN ok'd to tx, ID and verified Treatment End Time : 08/21/2020 10:01 EDT Treatment Time : 32 Minute(s) EDIN DRAKE OTR/Bartolo - 08/21/2020 13:24 EDT History and Environment, OT Living Situation, Therapy : Home Patient Lives With : Alone Persons Assisting Patient at Home : Child/Children Professional Skilled Services : None Persons Providing Information : Patient Home Equipment, Therapy : Shower Equipment, Walker, Wheelchair Walker : Walker, four wheel, Walker, front wheel Wheelchair : Wheelchair, standard Home Setup : One story Stairs : No Ramp : Yes EDIN DRAKE OTR/L - 08/21/2020 13:24 EDT Prior LOF Bathing, OT : Independent Prior LOF Bed Mobility : Independent Prior LOF Upper Body Dressing, OT : Independent Prior LOF Lower Body Dressing, OT : Independent Prior LOF Toileting : Independent Prior LOF Transfer : Independent Prior LOF Grooming, OT : Independent Prior LOF for IADLs, OT : Independent EDIN DRAKE OTR/L - 08/21/2020 13:24 EDT History and Environment Comment, OT : pt reports she is independent with all ADL/transfers and mobility in home prior to this surgery EDIN DRAKE OTR/L - 08/21/2020 13:24 EDT Upper Extremity Right UE Active ROM : Impaired Right UE Strength : Impaired Left UE Active ROM : Impaired Left UE Strength : Impaired Upper Extremity Comment : B shoulders limited < 90degrees with impaired strength throughout , h/o shoulder surgery EDIN DRAKE OTR/L - 08/21/2020 13:24 EDT Self Care/Home Management, OT Upper Body Dressing Assist Level, OT : Assist, moderate Lower Body Dressing Assist Level, OT : Assist, total Bed/Chair/WC Transfer Assist Level : Activity does not occur EDIN DRAKE OTR/L - 08/21/2020 13:24 EDT Mobility Device/Prosthesis/Wt Bearing Weight Bearing Status Maintained : Yes Weight Bearing Status : Non right lower extremity Mobility Device/Prosthesis/Wt Bearing Cmnt : RLE is in full leg cast EDIN DRAKE OTR/L - 08/21/2020 13:24 EDT Functional Mobility Mobility Grid Bed Roll Left : Rehab Total assistance Bed Roll Right : Rehab Total assistance Bed Scooting : Rehab Total assistance (Comment: x2 [EDIN DRAKE OTR/L - 08/21/2020 13:24 EDT] ) Supine to Sit : Rehab Total assistance (Comment: x2 [EDIN DRAKE OTR/L - 08/21/2020 13:24 EDT] ) Sit to Supine : Rehab Total assistance (Comment: x2 [EDIN DRAKE OTR/L 08/21/2020 13:24 EDT] ) EDIN DRAKE OTR/L - 08/21/2020 13:24 EDT Functional MobilityComment : pt tolerates EOB sitting for ~4 minutes with RLE supported and requesting back to bed as she is feeling weak. min assist for seated balance at times , pt attempts to use leg state trooper to assist RLE to EOB and cues for no quad activation though pt having much difficulty EDIN DRAKE OTR/L - 08/21/2020 13:24 EDT Activity Tolerance, OT Activity Comment : poor EDIN DRAKE OTR/L - 08/21/2020 13:24 EDT Neurological/Sensory Overall Sensory Response : Intact EDIN DRAKE OTR/L - 08/21/2020 13:24 EDT Cognition Assessment, OT Orientation : Oriented x 4 EDIN DRAKE OTR/L - 08/21/2020 13:24 EDT Education OT Occupational Therapy Education Grid Activity of Daily Living Training : Returns demonstration, Needs further teaching Functional Mobility Training : Returns demonstration, Needs further teaching Home Program/Exercises : Needs further teaching Precaution/Contraindication : Needs further teaching Occupational Therapy, Other : Needs further teaching EDIN DRAKE OTR/L - 08/21/2020 13:24 EDT Indication Assessment, OT Occupational Therapy Indicated : Yes Problem List, OT : Impaired, bed mobility, Impaired, activities daily living, Impaired, endurance tolerance, Impaired functional mobility, Impaired, joint mobility, Impaired, strength, Impaired, transfers Potential Barriers, OT : Acuity of illness, Fatigue, Pain Rehabilitation Potential, OT : Fair EDIN DRAKE OTR/L - 08/21/2020 13:24 EDT Plan of Care, OT OT Tx Plan/Goals Established w Patient : Yes OT Frequency Rehab : Three days per week Other OT Treatment Provided This Date : eval 8 minutes ADL 25 minutes - pt education throughout , precautions, mobility/ADL OT Duration Rehab : Seven Days OT Treatments Planned : Activities of daily living, Balance training, Caregiver training, Functional mobility training, Safety education, Therapeutic activities, Therapeutic exercises EDIN DRAKE OTR/L - 08/21/2020 13:24 EDT Buyer Agent Goals, OT Other LTG Grid Goal #1 [...] goal Initial goal Initial goal EDIN DRAKE OTR/L - 08/21/2020 13:24 EDT EDIN DRAKE OTR/Bartolo - 08/21/2020 13:24 EDT EDIN DRAKE OTR/L - 08/21/2020 13:24 EDT VIDAL EDIN OTR/L - 08/21/2020 13:24 EDT Treatment Note Subjective Comment : pt agrees to tx Additional Objective Information : eval ADL Assessment : pt to benefit from skilled OT while inpt to maximize level of function with aDL/mobility. pt is hindered by RLE leg cast, poor UB strength and overall limited mobility . pt will need SNF placement. pt was told will have R leg cast and be NWB for at least 3 months. pt is not able to return home and care for herself at this time Plan for Treatment : skilled OT 3x/week for 7 days EDIN DRAKE OTR/L - 08/21/2020 13:24 EDT Pain Assessment Pain Scaled Used : 0-10 Pain scale Pain Score Pre-Intervention : 5 Location : Leg, right Pain Comment : nurse aware VIDAL EDIN OTR/L - 08/21/2020 13:24 EDT Image 1 - Images currently included in the form version of this document have not been included in the text rendition version of the form. [facility] OT Charges OT Selfcare/Hm Mgmt Ea 15 Min : 2 OT Eval Moderate Complexity : 1 EDIN DRAKE OTR/L - 08/21/2020 13:24 EDT Electronically signed by Maureen Cornejo Conversion Coding Compliance Specialist Cerner at 06/16/2022 8:18 PM CDT documented in this encounter Plan of Treatment Not on file documented as of this encounter Visit Diagnoses Not on filedocumented in this encounter
--- OUTSIDE RECORDS SUMMARY | 2024-08-09 13:27 | XMS_ITS | Encounter Summary ---
Author Organization [employer] Address [address] [place] [address] Care Team Providers Care Clinic Nurse Name Role Phone Unavailable Primary Care Provider Unavailabl e Encounter Details Date Type Department Care Team (Late st Contact Info) Description 08/23/2018 Transcribed Document [facility] [place] Family Medicine [address] [place] [address] ProviderMariela MD [address] [place] [address] Social History Tobacco Use Types Packs/Day Years [...] Conversion Note - Historical ProviderMD - 08/23/2018 11:44 AM CDT Stroke/Warfarin Instructions Entered On: 08/23/2018 11:44 EDT Performed On: 08/23/2018 11:44 EDT by SWATI BAXTER RN-Charge Stroke/Warfarin Instructions Stroke/TIA Discharge Ins : N/A Warfarin Discharge Ins : N/A SWATI BAXTER RN-Charge - 08/23/2018 11:44 EDT documented in this encounter Plan of Treatment Not on file documented as of this encounter Visit Diagnoses Not on filedocumented in this encounter
--- OUTSIDE RECORDS SUMMARY | 2024-08-09 13:27 | XMS_ITS | Encounter Summary ---
Author Organization [employer] Address [address] [place] [address] Care Team Providers Care Pollution Control Engineer Name Role Phone Unavailable Primary Care Provider Unavailabl e Encounter Details Date Type Department Care Team (Late st Contact Info) Description 08/20/2020 Transcribed Document [facility] [place] [address] ProviderMariela MD [address] [place] [address] Social History Tobacco Use Types [...] PM CDT Pain Assessment Entered On: 08/21/2020 15:51 EDT Performed On: 08/21/2020 15:40 EDT by Jane Bose RN Intervention Information: oxyCODONE Performed by Jane Bose RN on 08/21/2020 14:40:00 EDT oxyCODONE,5mg Oral,Pain (Moderate 4-6) Pain Assessment Pain Assessment : Follow-up assessment Pain Scale Goal : 3 Pain Scale Used : 0-10 Scale Opioid Adverse Effects : None Pain Improved by Intervention : Yes Jane Bose RN - 08/21/2020 15:51 EDT Pain Scale Intensity : 0 Jane Bose RN - 08/21/2020 15:51 EDT Image 4 - Images currently included in the form version of this document have not been included in the text rendition version of the form. documented in this encounter Plan of Treatment Not on file documented as of this encounter Visit Diagnoses Not on filedocumented in this encounter
--- OUTSIDE RECORDS SUMMARY | 2024-08-09 13:28 | XMS_ITS | Encounter Summary ---
Author Organization [employer] Address [address] [place] [address] Care Team Providers Care Graphics Manager Name Role Phone Unavailable Primary Care Provider Unavailabl e Encounter Details Date Type Department Care Team (Late st Contact Info) Description 07/04/2019 Transcribed Document [facility] [place] Family Medicine [address] [place] [address] ProviderMariela MD [address] [place] [address] Social History Tobacco Use Types Packs/Day Years Used Date Smoking Tobacco: Never Assessed Comments Unknown Sex and Gender Information Value Date Recorded Sex Assigned at Female 09/02/2021 8:57 PM CDT Legal Sex Female 6:58 PM CDT Gender Identity Female 09/02/2021 8:57 PM CDT Sexual Orientation Not on file documented as of this encounter Miscellaneous Notes * Cerner Conversion Note - Historical ProviderMD - 07/04/2019 2:00 AM CDT Pick Out Hand Details Entered On: 07/04/2019 3:09 EDT Performed On: 07/04/2019 2:00 EDT by Bibi Gallagher RN Order Details Transport Mode Order Detail : Stretcher/Gurney Isolation Precautions Order Detail : Standard Precautions Order Detail : N/A IV Order Detail : 1 Oxygen Order Detail : 1 Nurse Collect Order Detail : 1 Lift/Transfer : Moderate assist Central Line Order Detail : Yes Room Service : Appropriate Arterial Line : No Bibi Gallagher RN - 07/04/2019 3:08 EDT documented in this encounter Plan of Treatment Not on file documented as of this encounter Visit Diagnoses Not on filedocumented in this encounter
--- OUTSIDE RECORDS SUMMARY | 2024-08-09 13:28 | XMS_ITS | Encounter Summary ---
Author Organization [employer] Address [address] [place] [address] Care Team Providers Care Floatlight Loading Supervisor Name Role Phone Unavailable Primary Care Provider Unavailabl e Encounter Details Date Type Department Care Team (Late st Contact Info) Description 06/19/2019 Transcribed Document [facility] [place] [address] [place] [address] ProviderMariela MD [address] [place] [address] Social History Tobacco Use Types Packs/Day Years Used Date Smoking Tobacco: Never Assessed Comments Unknown Sex and Gender Information Value Date Recorded Sex Assigned at Female 09/02/2021 8:57 PM CDT Legal Sex Female 6:58 PM CDT Gender Identity Female 09/02/2021 8:57 PM CDT Sexual Orientation Not on file documented as of this encounter Miscellaneous Notes * Cerner Conversion Note - Historical ProviderMD - 06/19/2019 10:00 PM CDT Patch Check Entered On: 06/19/2019 23:00 EDT Performed On: 06/19/2019 22:00 EDT by Adrianna Ortiz RN Patch Check Patch Check Result : No Patch Check - Type of Patch : scopolamine (Transderm-Scop) Adrianna Ortiz RN - 06/19/2019 23:00 EDT documented in this encounter Plan of Treatment Not on file documented as of this encounter Visit Diagnoses Not on filedocumented in this encounter
--- OUTSIDE RECORDS SUMMARY | 2024-08-09 13:28 | XMS_ITS | Encounter Summary ---
Author Organization [email or web address] Address [address] [place] [address] Care Team Providers Care Securities Clerk Name Role Phone Unavailable Primary Care Provider Unavailabl e Encounter Details Date Type Department Care Team (Late st Contact Info) Description 07/05/2019 Transcribed Document [facility] [place] Family Medicine [facility] [place] [address] ProviderMariela MD [facility] [place] [address] Social History Tobacco Use Types [...] Conversion Note - Historical ProviderMD - 07/05/2019 7:41 AM CDT Interdisciplinary Rounds Entered On: 07/05/2019 7:43 EDT Performed On: 07/05/2019 7:41 EDT by JESUS MANUEL CABRAL LPN Interdisciplinary Rounds Working Summary Patient's Priority Needs : IV abx -> plan 8 wks then transition to PO PT/OT Brace in place-> dressing changed daily Coumadin inititated for DVT prophylaxis Current DRG/LOS : 560 Aftercare, musculoskeletal & connective tissue 21-25 days Anticipated DC 07/21/2019 Nursing Interdisciplinary Rounds Clinical Summary/Update : BRACE FROM WAIST TO FOOT FOR LT KNEE ALIGNMENT. LT KNEE REVISION LT UA PICC ALBUMIN INFUSIONS. [email or web address]@HS ROOM AIR DURING DAY JESUS MANUEL CABRAL LPN - 07/05/2019 7:41 EDT Electronically signed by Chantal [facility] Conversion Firestop/Containment Worker Cerner at 06/16/2022 8:30 PM CDT documented in this encounter Plan of Treatment Not on file documented as of this encounter Visit Diagnoses Not on filedocumented in this encounter
--- OUTSIDE RECORDS SUMMARY | 2024-08-09 13:28 | XMS_ITS | Encounter Summary ---
Author Organization [employer] Address [address] [place] [address] Care Team Providers Care Stitcher Tape Controlled Machine Name Role Phone Unavailable Primary Care Provider Unavailabl e Encounter Details Date Type Department Care Team (Late st Contact Info) Description 06/29/2019 Transcribed Document [facility] Family Medicine [facility] [place] [address] ProviderMariela MD [facility] [place] [address] Social History Tobacco Use Types [...] Conversion Note - Historical ProviderMD - 06/29/2019 9:15 AM CDT Patient: SOFIA GILL Age: 79 years Sex: Female : 1940 Associated Diagnoses: None Author: CHRISSY HENDERSON, PharmD, BCPS HPI: 06/15 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, [...] 07:00) 97.8 (JUN 27 23:00) 99.6 (JUN 27:) Mon HR 87 (JUN 28:00) 87 (JUN 28 07:00) 96 (JUN 27:) Resp Rate 18 (JUN 28:00) 18 (JUN 27 19:00) 20 (JUN 27 16:00) SBP 111 (JUN 28 08:57) 111 (JUN 28:00) H 153 (JUN 27:00) DBP L 42 (JUN 28 08:57) L 42 (JUN 28:00) 64 (JUN 27:00) SpO2 97 (JUN 28:) 95 (JUN 27:00) 98 (JUN 27:) Intake & Output Totals Last 24 Hours (7a-7a) Input Total: 560 mL Output Total: 600 mL Balance: -40 mL Labs (Last four charted values) WBC [...] Encounter/Past 24 Hours) Creatinine Level 0.60 mg/dL 06/29/2019 07:06 Bun/Creatinine 20.0 06/29/2019 07:06 Culture Results: 06/16 & 06/20 knee tissue strep agal Group B Date INR 1.1 --- Dose 4mg 2mg A/P: 1. Patient's orthopedic surgeon wants to use warfarin 2mg daily for DVT prophylaxis instead of lovenox. Will dose warfarin 2mg today and another dose at 1800 today. Warfarin 2mg daily thereafter. 2. INR goal is to be LESS than 2. 3. INR getting obtained today will monitor every other day 4. Patient to get lovenox 06/27 and 06/28 and no more subsequent doses. Rx to follow, Chrissy Henderson, PharmD [phone] Electronically signed by Chantal [facility] Conversion Juice Scaleman Cerner at 06/16/2022 8:24 PM CDT documented in this encounter Plan of Treatment Not on file documented as of this encounter Visit Diagnoses Not on filedocumented in this encounter
--- OUTSIDE RECORDS SUMMARY | 2024-08-09 13:28 | XMS_ITS | Encounter Summary ---
Author Organization [employer] Address [address] [place] [address] Care Team Providers Care Massotherapist Name Role Phone Unavailable Primary Care Provider Unavailabl e Encounter Details Date Type Department Care Team (Late st Contact Info) Description 07/05/2019 Transcribed Document [facility] [place] Family Medicine [address] [place] [address] ProviderMariela MD [address] [place], [place] 740[address] Social History Tobacco Use Types Packs/Day Years [...] Note - Historical ProviderMD - 07/05/2019 5:00 AM CDT Chart Check - Review Order Profile Entered On: 07/05/2019 4:04 EDT Performed On: 07/05/2019 5:00 EDT by Bibi Gallagher RN Chart Check Powerplans Initiated/Discontinued as Appropriate : Yes All Active Orders Reviewed : Yes Bibi Gallagher RN - 07/05/2019 4:03 EDT documented in this encounter Plan of Treatment Not on file documented as of this encounter Visit Diagnoses Not on filedocumented in this encounter
--- OUTSIDE RECORDS SUMMARY | 2024-08-09 13:28 | XMS_ITS | Encounter Summary ---
Author Organization [employer] Address [address] [place] [address] Care Team Providers Care Sulky Driver Name Role Phone Unavailable Primary Care Provider Unavailabl e Encounter Details Date Type Department Care Team (Late st Contact Info) Description 08/23/2018 Transcribed Document [facility] [place] Medicine [facility] [place] [address] ProviderMariela MD [address] [place] [address] Social History Tobacco Use Types [...] Historical ProviderMD - 08/23/2018 11:44 AM CDT Event Note Entered On: 08/23/2018 11:46 EDT Performed On: 08/23/2018 11:44 EDT by Vianca Morgan RN Event Note Event Date/Time : 08/23/2018 11:44 EDT Description of Event : Pulled (2) 5mg Oxycodones, scanned and gave them to patient. The patient ended up dropping the meds on the floor. I had Deepika Syed RN help find the 2 pills and she wasted them with me. I pulled 2 more 5mg oxycodones and gave them to the patient. Per Justice in Pharm i didn't need to rescan the meds, just make an event note documenting where the meds went. Vianca Morgan RN - 08/23/2018 11:44 EDT documented in this encounter Plan of Treatment Not on file documented as of this encounter Visit Diagnoses Not on filedocumented in this encounter
--- OUTSIDE RECORDS SUMMARY | 2024-08-09 13:28 | XMS_ITS | Encounter Summary ---
Author Organization [employer] Address [address] [place] [address] Care Team Providers Care Catering Service Manager Name Role Phone Unavailable Primary Care Provider Unavailabl e Encounter Details Date Type Department Care Team (Late st Contact Info) Description 06/19/2019 Transcribed Document [facility] [place] [facility] [place] [address] ProviderMariela MD [address] [place] [address] Social History Tobacco Use Types Packs/Day [...] Conversion Note - Historical ProviderMD - 06/19/2019 2:08 PM CDT Patient: SOFIA GILL Age: 79 years Sex: Female : 1940 Associated Diagnoses: None Author: ARA JONES MD-INF ID Progress Note chief complaint: Difficulty ambulating in left knee pain and edema Current antimicrobial therapy: Rocephin IV and clindamycin Subjective: 06/18/19: afebrile. BP stable. more confused, oriented to place and month but poor memory. pulling out IVs. complains of knee pain. Blood cx + for GBS. Synovial fluid culture with GPC. appetite poor. 06/19/19 patient still with confusion left knee pain and swelling ongoing leukocytosis low-grade fevers remains on IV antibiotics plan for left leg amputation tomorrow ROS: Fevers and confused, no rash or diarrhea per RN. otherwise unobtainable Objective: Physical Examination: Vitals Signs (last 24 hrs) Last Charted Minimum Maximum Temp 99.6 (JUN 18 08:57) 99.6 (JUN 18 08:57) H 100 (JUN 17 18:00) Mon HR 99 (JUN 18 08:57) 48 (JUN 17 18:00) 110 (JUN 17 22:53) Resp Rate 16 (JUN 18 08:57) 16 (JUN 17 18:00) 20 (JUN 17 21:32) SBP H 147 (JUN 18 08:57) 113 (JUN 17 22:53) H 147 (JUN 18 08:57) DBP 90 (JUN 18 08:57) L 52 (JUN 17 18:00) H 96 (JUN 17 22:53) MAP 105 (JUN 18 08:57) 63 (JUN 17 18:00) 105 (JUN 18 08:57) SpO2 95 (JUN 18 11:23) L 93 (JUN 17 21:32) 99 (JUN 17 22:53) Exam: Gen: Alert, confused. HEENT: NC/AT, PERRLA, [...] Labs:Labs (Last four charted values) WBC H 24.7 (JUN 18) H 21.4 (JUN 17) H 21.1 (JUN 16) HB L 9.1 (JUN 18) L 10.3 (JUN 17) L 10.0 (JUN 16) HCT L 28.0 (JUN 18) L 32.3 (JUN 17) L 31.3 (JUN 16) Plt 281 (JUN 18) 266 (JUN 17) 265 (JUN 16) Na 136 (JUN 18) L 130 (JUN 17) L 130 (JUN 16) K 4.6 (JUN 18) H 5.3 (JUN 17) H 5.8 (JUN 16) Cl 103 (JUN 18) L 97 (JUN 17) L 97 (JUN 16) CO2 22 (JUN 18) 24 (JUN 17) 26 (JUN 16) BUN H 31 (JUN 18) H 50 (JUN 17) H 55 (JUN 16) Cr 0.93 (JUN 18) H 1.51 (JUN 17) H 1.65 (JUN 16) Glu R L 73 (JUN 18) 87 (JUN 17) 79 (JUN 16) Ca L 7.9 (JUN 18) L 8.1 (JUN 17) L 8.0 (JUN 16) Lactic 1.1 (JUN 16) AST 26 (JUN 18) H 38 (JUN 16) ALT 21 (JUN 18) 29 (JUN 16) ALK P H 188 (JUN 18) 133 (JUN 16) T Bili 0.3 (JUN 18) 0.5 (JUN 16) PTN L 4.4 (JUN 18) L 5.2 (JUN 16) ALB L 1.5 (JUN 18) L 2.0 (JUN 16) Micro: [facility]: 06/15 [facility] Blood cultures positive for group B strep and 2/2 bottles SJE: 06/16 fluid aspiration of left knee shows 118,150 white blood cells, GPC 06/16 repeat blood cultures with Group B Strep 06/16 MRSA surveillance culture and pro/pending 06/16 Urine culture in process/pending Rad:No Radiology Results Found TTE negative for endocarditis Problem list: - [...] with aggressive intervention continue antibiotics with ceftriaxone and clindamycin RECOMMENDATIONS/PLANS: - f/u pending blood cultures and synovial fluid cultures. - continue ceftriaxone 2 gm daily - due to persistently positive blood cultures and lack of source control will add IV clindamycin 600 mg q8h - likely to need a prolonged course of IV antibiotics - poor IV access. will likely need PICC once blood cultures negative and his creatinine down to down to 0.9. - orthopedic surgery following. 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
--- OUTSIDE RECORDS SUMMARY | 2024-08-09 13:28 | XMS_ITS | Encounter Summary ---
Author Organization [employer] Address [address] [place] [address] Care Team Providers Care Boom Crane Operator Name Role Phone Unavailable Primary Care Provider Unavailabl e Encounter Details Date Type Department Care Team (Late st Contact Info) Description 06/19/2019 Transcribed Document [facility] [place] Family Medicine [address] [place] [address] ProviderMariela MD [address] [place] [address] Social History Tobacco Use Types [...] Conversion Note - Historical ProviderMD - 06/19/2019 9:28 AM CDT UM Authorization Entered On: 06/19/2019 9:28 EDT Performed On: 06/19/2019 9:28 EDT by TIESHA AQUINO RN-Utilization Review Primary Insurance Authorization Authorization and Policy Numbers : Insurance 1 Health Plan: [employer] [employer] Policy Number: [id number] Authorization Number: Insurance Primary Name : [employer] [employer] Policy Number: [id number] Authorization Status-Primary : Pending clinicals Reference Number-Primary : [id number] Authorized Service Begin Date-Primary : 06/16/2019 EDT Historical Authorization Comments-Primary : Comment 1: Attempted auth on [facility] portal, message that notification cannot be completed online, Call number on back of card (Michelle Jimenez Rn-Utilization Review 06/17/2019 10:02) TIESHA AQUINO RN-Utilization Review - 06/19/2019 9:28 EDT Electronically signed by Maureen Cornejo Conversion Motor Vehicle Parts Interpreter Cerner at 06/16/2022 8:15 PM CDT documented in this encounter Plan of Treatment Not on file documented as of this encounter Visit Diagnoses Not on filedocumented in this encounter
--- OUTSIDE RECORDS SUMMARY | 2024-08-09 13:28 | XMS_ITS | Encounter Summary ---
Author Organization [employer] Address [address] [place] [address] Care Team Providers Care Radiation Protection Specialist Name Role Phone Unavailable Primary Care Provider Unavailabl e Encounter Details Date Type Department Care Team (Late st Contact Info) Description 07/04/2019 Transcribed Document [facility] [address] [place] [address] Shawanda Barahona MD [address] [place] [address] Social History Tobacco Use Types Packs/Day Years [...] Conversion Note - Shawanda Barahona MD - 07/04/2019 12:28 PM EDT Patient: SOFIA GILL Age: 79 years Sex: Female : 1940 Associated Diagnoses: None Author: SHAWANDA BARAHONA MD-INF ID Progress Note CC: Left knee pain Current antimicrobial therapy: Rocephin IV Subjective: 07/04/19; doing well; no events overnight; no fever, rash, sore throat, or diarrhea ros see hpi Objective Vitals Signs (last 24 hrs) Last Charted Minimum Maximum Temp 98.3 (JULY 03 08:00) 98.3 (JULY 03 08:00) 99.4 (JULY 02 15:00) Mon HR 84 (JULY 03 08:00) 84 (JULY 03 08:00) 94 (JULY 02:) Resp Rate 17 (JULY 03 08:00) 16 (JULY 02:00) 20 (JULY 02:) SBP 129 (JULY 03:) 117 (JULY 02:) H 141 (JULY 02:) DBP L 48 (JULY 03 08:) L 42 (JULY 02:00) L 49 (JULY 02:) MAP 61 (JULY 02:00) 61 (JULY 02:) 61 (JULY 02:) SpO2 96 (JULY 03 08:) 95 (JULY 02:) 98 (JULY 02:) Physical Examination: Gen: Alert, in no acute distress. HEENT: NC/AT, PERRLA, EOMI, sclera nonicteric, RESP: CTA bilaterally without rhonchi CV: RRR, GI: BS normoactive in all 4 quadrants, soft, nontender, : No chou in place MS: 2+ edema bilaterally knees, rightknee c/d/i, left knee in brace SKIN: No eruptions, lesions, or rashes, PICC in place NEURO: No focal deficits moves all 4 extremities Labs:Labs (Last four charted values) WBC 7.9 (JULY 03) 7.2 (JULY 02) H 10.6 (JUN 26) HB L 8.8 (JULY 03) L 8.2 (JULY 02) L 9.7 (JUN 26) HCT L 27.9 (JULY 03) L 25.8 (JULY 02) L 29.4 (JUN 26) Plt H 535 (JULY 03) H 552 (JULY 02) H 431 (JUN 26) Na 136 (JULY 03) 136 (JULY 02) L 134 (JUN 28) 136 (JUN 27) K 4.5 (JULY 03) 4.3 (JULY 02) 4.5 (JUN 28) 4.4 (JUN 27) Cl L 101 (JULY 03) L 100 (JULY 02) 102 (JUN 28) 103 (JUN 27) CO2 30 (JULY 03) 31 (JULY 02) 28 (JUN 28) 28 (JUN 27) BUN 18 (JULY 03) 20 (JULY 02) 12 (JUN 28) 11 (JUN 27) Cr 0.70 (JULY 03) 0.60 (JULY 02) 0.60 (JUN 28) 0.60 (JUN 27) Glu R H 120 (JULY 03) H 113 (JULY 02) H 116 (JUN 28) H 127 (JUN 27) Ca L 8.1 (JULY 03) L 7.8 (JULY 02) L 8.1 (JUN 28) L 8.1 (JUN 27) PT 11.4 (JULY 03) 11.4 (JULY 01) 11.5 (JUNE 29) 11.6 (JUN 27) INR 1.1 (JULY 03) 1.1 (JULY 01) 1.1 (JUNE 29) 1.1 (JUN 27) AST 14 (JULY 03) 16 (JULY 02) 15 (JUN 26) ALT L 11 (JULY 03) L 11 (JULY 02) L 11 (JUN 26) ALK P 57 (JULY 03) 54 (JULY 02) 56 (JUN 26) T Bili 0.2 (JULY 03) 0.2 (JULY 02) 0.5 (JUN 26) PTN 7.1 (JULY 03) 6.6 (JULY 02) L 5.9 (JUN 26) ALB L 1.9 (JULY 03) L 1.9 (JULY 02) L 2.4 (JUN 26) Micro: [facility]: 06/15 [facility] Blood cultures positive for group B [...] and reviewed Dr. Saenz's surgical washout as JACINTO was decided against due to high risk [...]
--- OUTSIDE RECORDS SUMMARY | 2024-08-09 13:28 | XMS_ITS | Encounter Summary ---
Author Organization [employer] Address [address] [place] [address] Care Team Providers Care Remote Pilot Operator Name Role Phone Unavailable Primary Care Provider Unavailabl e Encounter Details Date Type Department Care Team (Late st Contact Info) Description 07/04/2019 Transcribed Document [facility] [place] Family Medicine [address] [place] [address] ProviderMariela MD [address], [place] [id number] Social History Tobacco Use Types Packs/Day Years [...] Conversion Note - Historical ProviderMD - 07/04/2019 5:00 AM CDT Chart Check - Review Order Profile Entered On: 07/04/2019 3:10 EDT Performed On: 07/04/2019 5:00 EDT by Bibi Gallagher RN Chart Check Powerplans Initiated/Discontinued as Appropriate : Yes All Active Orders Reviewed : Yes Bibi Gallagher RN - 07/04/2019 3:10 EDT Electronically signed by Chantal mandeep Conversion Instructor Adjunct Surgical Technician Cerner at 06/16/2022 8:23 PM CDT documented in this encounter Plan of Treatment Not on file documented as of this encounter Visit Diagnoses Not on filedocumented in this encounter
--- OUTSIDE RECORDS SUMMARY | 2024-08-09 13:28 | XMS_ITS | Encounter Summary ---
Author Organization [employer] Address [address] [place] [address] Care Team Providers Care Wage Hand Name Role Phone Unavailable Primary Care Provider Unavailabl e Encounter Details Date Type Department Care Team (Late st Contact Info) Description 08/23/[address] [facility] [place] Family Medicine [address] [place] [address] ProviderMariela MD [address] [place] [address] Social History Tobacco Use Types Packs/Day Years [...] Historical ProviderMD - 08/23/2018 11:44 AM CDT Nursing Discharge Summary Entered On: 08/23/2018 11:45 EDT Performed On: 08/23/2018 11:44 EDT by SWATI BAXTER RN-Charge Discharge Documentation Patient Disposition, General : Discharge Discharge To : Home with ambulatory/outpatient follow-up Mode Of Departure, General Discharge : Private vehicle Accompanied By, Discharge : Care provider IV Discontinued : Yes Personal Belongings With Patient : Yes Prescriptions Given to Patient : Yes Number of Prescriptions Given : 6 Teaching Method : Explanation, Printed materials Teaching Evaluation : Verbalizes understanding SWATI BAXTER, RN-Charge - 08/23/2018 11:44 EDT documented in this encounter Plan of Treatment Not on file documented as of this encounter Visit Diagnoses Not on filedocumented in this encounter
--- OUTSIDE RECORDS SUMMARY | 2024-08-09 13:28 | XMS_ITS | Encounter Summary ---
Author Organization [employer] Address [address] [place] [address] Care Team Providers Care Waiter/Waitress Cafeteria Name Role Phone Unavailable Primary Care Provider Unavailabl e Encounter Details Date Type Department Care Team (Late st Contact Info) Description 07/14/[address] [facility] [place] Family Medicine [address] [place] [address] ProviderMariela MD [address] [place] [address] Social History Tobacco Use Types Packs/Day Years [...] Conversion Note - Historical ProviderMD - 07/14/2019 2:00 AM CDT Dryland Farmer Details Entered On: 07/14/2019 7:20 EDT Performed On: 07/14/2019 2:00 EDT by Georgina Olivo RN Order Details Transport Mode Order Detail : Stretcher/Gurney Isolation Precautions Order Detail : Standard Precautions Order Detail : N/A Nurse Collect Order Detail : 1 Lift/Transfer : Moderate assist Central Line Order Detail : Yes Room Service : Appropriate Arterial Line : No Georgina Olivo RN - 07/14/2019 7:20 EDT documented in this encounter Plan of Treatment Not on file documented as of this encounter Visit Diagnoses Not on filedocumented in this encounter
--- OUTSIDE RECORDS SUMMARY | 2024-08-09 13:28 | XMS_ITS | Encounter Summary ---
Author Organization [employer] Address [address] [place] [address] Care Team Providers Care Otr Truck Driver Name Role Phone Unavailable Primary Care Provider Unavailabl e Encounter Details Date Type Department Care Team (Late st Contact Info) Description 07/04/2019 Transcribed Document [facility] Family Medicine [facility] [place] [address] ProviderMariela MD [facility] [place] [address] Social History Tobacco Use Types [...] Conversion Note - Historical ProviderMD - 07/04/2019 8:21 AM CDT Patient: SOFIA GILL Age: 79 years Sex: Female : 1940 Associated Diagnoses: None Author: CHRISSY HENDERSON, PharmD, BCPS HPI: 06/15 [place] [facility] [place] with chronic extensor rupture, [...] 08:00) 98.3 (JULY 03 08:00) 99.4 (JULY 02:) Mon HR 84 (JULY 03 08:00) 84 (JULY 03 08:00) 94 (JULY 02:) Resp Rate 17 (JULY 03 08:00) 16 (JULY 02 23:00) 20 (JULY 02:) SBP 129 (JULY 03 08:00) 117 (JULY 02 23:00) H 141 (JULY 02:00) DBP L 48 (JULY 03 08:00) L 42 (JULY 02:00) L 49 (JULY 02:) MAP 61 (JULY 02 23:00) 61 (JULY 02 23:00) 61 (JULY 02:00) SpO2 96 (JULY 03 08:00) 95 (JULY 02:00) 98 (JULY 02:) Intake & Output Totals Last 24 Hours (7a-7a) Input Total: 545 mL Output Total: 0 mL Balance: 545 mL Labs (Last four charted values) WBC 7.9 (JULY [...] 1.9 (JULY 02) L 2.4 (JUN 26) Creatinine Clearance (Current Encounter/Past 24 Hours) Creatinine Level 0.70 mg/dL 07/04/2019 07:32 Bun/Creatinine 25.7 HI 07/04/2019 07:39 Estimated Creatinine Clearance 45.90 mL/Min 07/04/2019 07:32 Culture Results: 06/16 & 06/20 knee tissue strep agal Group B Date 06/27 06/28 06/29 07/01 07/03 INR 1.1 --- 1.1 1.1 1.1 Dose 4mg 2mg 2mg 2 2 A/P: 1. Patient's orthopedic surgeon wants to use warfarin 2mg daily for DVT prophylaxis instead of lovenox. Continue Warfarin 2mg daily as INR is stable 2. INR goal is to be LESS than 2. 3. INR is not rising on warfarin 2mg (as is the goal per ortho group). Will adjust INR check to Q3days. Rx to follow, Chrissy Henderson, PharmD [phone] documented in this encounter Plan of Treatment Not on file documented as of this encounter Visit Diagnoses Not on filedocumented in this encounter
--- OUTSIDE RECORDS SUMMARY | 2024-08-09 13:28 | XMS_ITS | Encounter Summary ---
Author Organization [employer] Address [address] [place] [address] Care Team Providers Care Commercial Journeyman Electrician Name Role Phone Unavailable Primary Care Provider Unavailabl e Encounter Details Date Type Department Care Team (Late st Contact Info) Description 06/30/2019 Transcribed Document [facility] Family Medicine [facility] [place] [address] ProviderMariela MD [address] [place] [address] Social History Tobacco Use Types [...] Cerner Conversion Note - Historical ProviderMD - 06/30/2019 12:23 PM CDT Patient: SOFIA BARLOW Age: 79 years Sex: Female : 1940 Associated Diagnoses: None Author: Hui Mccormick, Pharmacist-Resident HPI: 06/15 [place] [facility] [facility] [place] L-[place]KA with [...] 24 hrs) Last Charted Minimum Maximum Temp 98.5 (JUNE 29 07:00) 98.5 (JUNE 29:) 98.4 (JUN 28:00) Mon HR 83 (JUNE 29:) 83 (JUN 28:) 93 (JUN 28:) Resp Rate 16 (JUNE 29:) 16 (JUNE 29:) 20 (JUN 28 15:) SBP 133 (JUNE 29:) 114 (JUN 28:) H 148 (JUN 28:) DBP L 47 (JUNE 29:) L 47 (JUNE 29:) L 59 (JUN 28 23:00) MAP 66 (JUN 28:00) 66 (JUN 28:00) 66 (JUN 28:00) SpO2 94 (JUNE 29:) 94 (JUNE 29:) 98 (JUN 28 20:00) Intake & Output Totals Last 24 Hours (7a-7a) Intake (4 Events) Medications (50 mL) Oral Intake (340 mL) Output (1 Events) Urine Voided (Volume) (1600 mL) Input Total: 390 mL Output Total: 1600 mL Balance: -1210 mL Labs (Last four charted values) WBC [...] (JUN 27) L 8.1 (JUN 26) PT 11.5 (JUNE 29) 11.6 (JUN 27) INR 1.1 (JUNE 29) 1.1 (JUN 27) AST 15 (JUN 26) ALT L 11 (JUN 26) ALK P 56 (JUN 26) T Bili 0.5 (JUN 26) PTN L 5.9 (JUN 26) ALB L 2.4 (JUN 26) Creatinine Clearance (Current Encounter/Past 24 Hours) Creatinine Level 0.60 mg/dL 06/29/2019 07:06 Bun/Creatinine 20.0 06/29/2019 07:06 Culture Results: 06/16 & 06/20 knee tissue strep agal Group B Date 06/27 06/28 06/29 INR 1.1 --- 1.1 Dose 4mg 2mg (2mg) A/P: 1. Patient's orthopedic surgeon wants to use warfarin 2mg daily for DVT prophylaxis instead of lovenox. Will dose warfarin 2mg today and another dose at 1800 today. Warfarin 2mg daily thereafter. 2. INR goal is to be LESS than 2. 3. INR getting obtained today will monitor every other day 4. Patient to get lovenox 06/27 and 06/28 and no more subsequent doses, patient is on aspirin 81mg daily (started 06/28) Rx to follow, Neelam Mccormick, KaurD # [phone] Electronically signed by Chantal, [facility] Conversion Donor Relations Associate Cerner at 06/16/2022 8:05 PM CDT documented in this encounter Plan of Treatment Not on file documented as of this encounter Visit Diagnoses Not on filedocumented in this encounter
--- OUTSIDE RECORDS SUMMARY | 2024-08-09 13:28 | XMS_ITS | Encounter Summary ---
Author Organization [employer] Address [address] [place] [address] Care Team Providers Care Bank Analyst Name Role Phone Unavailable Primary Care Provider Unavailabl e Encounter Details Date Type Department Care Team (Late st Contact Info) Description 06/30/2019 Transcribed Document [facility] [place] Family Medicine [address] [place] [address] ProviderMariela MD [address], [place] [id number] Social History Tobacco Use Types Packs/Day Years [...] Conversion Note - Historical ProviderMD - 06/30/2019 5:00 AM CDT Chart Check - Review Order Profile Entered On: 06/30/2019 6:36 EDT Performed On: 06/30/2019 5:00 EDT by Georgina Olivo RN Chart Check Powerplans Initiated/Discontinued as Appropriate : Yes All Active Orders Reviewed : Yes Georgina Olivo RN - 06/30/2019 6:36 EDT documented in this encounter Plan of Treatment Not on file documented as of this encounter Visit Diagnoses Not on filedocumented in this encounter
--- OUTSIDE RECORDS SUMMARY | 2024-08-09 13:28 | XMS_ITS | Encounter Summary ---
Author Organization [employer] Address [address] [place] [address] Care Team Providers Care Marine Services Technician Name Role Phone Unavailable Primary Care Provider Unavailabl e Encounter Details Date Type Department Care Team (Late st Contact Info) Description 07/05/[address] [facility] [place] Family Medicine [address] [place] [address] ProviderMariela MD [address] [place] [address] Social History Tobacco Use Types Packs/Day Years [...] Conversion Note - Historical ProviderMD - 07/05/2019 2:00 AM CDT Mill Stenciler Details Entered On: 07/05/2019 4:03 EDT Performed On: 07/05/2019 2:00 EDT by Bibi Gallagher RN Order Details Transport Mode Order Detail : Stretcher/Gurney Isolation Precautions Order Detail : Standard Precautions Order Detail : N/A IV Order Detail : 1 Oxygen Order Detail : 1 Nurse Collect Order Detail : 1 Lift/Transfer : Moderate assist Central Line Order Detail : Yes Room Service : Appropriate Arterial Line : No Bibi Gallagher RN - 07/05/2019 3:56 EDT documented in this encounter Plan of Treatment Not on file documented as of this encounter Visit Diagnoses Not on filedocumented in this encounter
--- OUTSIDE RECORDS SUMMARY | 2024-08-09 13:28 | XMS_ITS | Encounter Summary ---
Author Organization [employer] Address [address] [place] [address] Care Team Providers Care Marketing Content Specialist Name Role Phone Unavailable Primary Care Provider Unavailabl e Encounter Details Date Type Department Care Team (Late st Contact Info) Description 06/19/2019 Transcribed Document [facility] [place] [facility] [place] [address] ProviderMariela MD [address] [place] [id number] Social History Tobacco Use Types Packs/Day Years [...] Conversion Note - Historical ProviderMD - 06/19/2019 1:10 PM CDT Spiritual Care Short Form Entered On: 06/19/2019 13:15 EDT Performed On: 06/19/2019 13:10 EDT by PARTHA KUMAR Chaplain-Non Cert General Information, Spiritual Care Spiritual Care Referred by : Coffee Maker Servicer initiated Reason for Visit : Initial Ministry Provided to : Patient Intervention/Comment/Summary Points : yS is a 79-year-old patient who is seen awake and resting in bed. She complains of shoulder pain and discomfort. Communicated her concerns to her nurse. Provided pastoral care, empathic listening and emotional support. Also faciliated communication with care team. Bahai Preference : Caodaism PARTHA KUMAR Chaplain-Non Cert - 06/19/2019 13:10 EDT documented in this encounter Plan of Treatment Not on file documented as of this encounter Visit Diagnoses Not on filedocumented in this encounter
--- OUTSIDE RECORDS SUMMARY | 2024-08-09 13:28 | XMS_ITS | Encounter Summary ---
Author Organization [employer] Address [address] [place] [address] Care Team Providers Care Rehabilitation Specialist Name Role Phone Unavailable Primary Care Provider Unavailabl e Encounter Details Date Type Department Care Team (Late st Contact Info) Description 06/19/2019 Transcribed Document [facility] [place] Family Medicine [facility] [place] [address] ProviderMariela MD [facility] [address] Social History Tobacco Use Types [...] Conversion Note - Historical ProviderMD - 06/19/2019 11:33 AM CDT On Going Discharge Planning Entered On: 06/19/2019 11:35 EDT Performed On: 06/19/2019 11:33 EDT by MIKE FRIEDMAN RN-Elementary School LibrarianSr. Unix System Administrator Progress Note Discharge Arrangements : Patient Post-Acute Information Patient Name: SOFIA GILL Gender: Female : 44 Age: 79 Years No Post-Acute Placement(s) Listed No Post-Acute Service(s) Listed No Curaspan Referral(s) Listed Discharge Options Discussed with Patient : Outpatient services MIKE FRIEDMAN RN-Elementary School Librarian - 06/19/2019 11:33 EDT Narrative Progress Note Narrative Progress Note : Patient becoming more agitated and confused, refusing to wear oxygen. Patient now on CPAP, WBC increased, BC x2 positive for group b Strep. Dr Saenz to perform AKA tomorrow morning. Will continue to follow..............MIKE Adam, RN-Elementary School Librarian - 06/19/2019 11:33 EDT Electronically signed by [facility] Conversion Seo Marketing Specialist Cerner at 06/16/2022 8:02 PM CDT documented in this encounter Plan of Treatment Not on file documented as of this encounter Visit Diagnoses Not on filedocumented in this encounter
--- OUTSIDE RECORDS SUMMARY | 2024-08-09 13:28 | XMS_ITS | Encounter Summary ---
Author Organization [employer] Address [address] [place] [address] Care Team Providers Care Financial Institution Vice President Name Role Phone Unavailable Primary Care Provider Unavailabl e Encounter Details Date Type Department Care Team (Late st Contact Info) Description 07/04/2019 Transcribed Document [facility] [place] Family Medicine [facility] [place] [address] ProviderMariela MD [facility] [place] [address] Social History Tobacco Use Types [...] Conversion Note - Historical ProviderMD - 07/04/2019 8:39 AM CDT Interdisciplinary Rounds Entered On: 07/04/2019 8:40 EDT Performed On: 07/04/2019 8:39 EDT by MASSIEL HENDERSON PharmD, DURGA Interdisciplinary Rounds Working Summary Patient's Priority Needs : IV abx -> plan 8 wks then transition to PO PT/OT Brace in place-> dressing changed daily Coumadin inititated for DVT prophylaxis Current DRG/LOS : 560 Aftercare, musculoskeletal & connective tissue 21-25 days Anticipated DC 07/21/2019 Pharmacist Interdisciplinary Rounds Note : Patient on Ceftriaxone for 8 weeks with PO life suppression thereafter. Managing warfarin for DVT prophylaxis with goal < 2. MASSIEL HENDERSON PharmD, DURGA - 07/04/2019 8:39 EDT documented in this encounter Plan of Treatment Not on file documented as of this encounter Visit Diagnoses Not on filedocumented in this encounter
--- OUTSIDE RECORDS SUMMARY | 2024-08-09 13:28 | XMS_ITS | Encounter Summary ---
Author Organization [employer] Address [address] [place] [address] Care Team Providers Care Senior Ui Developer Name Role Phone Unavailable Primary Care Provider Unavailabl e Encounter Details Date Type Department Care Team (Late st Contact Info) Description 06/29/2019 Transcribed Document [facility] [place] [address] [place] [address] ProviderMariela MD [address] [place] [address] Social History Tobacco Use Types Packs/Day Years [...] Conversion Note - Historical ProviderMD - 06/29/2019 9:00 PM CDT Patch Check Entered On: 06/30/2019 6:08 EDT Performed On: 06/29/2019 21:00 EDT by Georgina Olivo RN Patch Check Patch Check Result : No Patch Check - Type of Patch : Other: no patch noted Georgina Olivo RN - 06/30/2019 6:08 EDT documented in this encounter Plan of Treatment Not on file documented as of this encounter Visit Diagnoses Not on filedocumented in this encounter
--- OUTSIDE RECORDS SUMMARY | 2024-08-09 13:28 | XMS_ITS | Encounter Summary ---
Author Organization [employer] Address [address] [place] [address] Care Team Providers Care Activities Officer Name Role Phone Unavailable Primary Care Provider Unavailabl e Encounter Details Date Type Department Care Team (Late st Contact Info) Description 07/04/2019 Transcribed Document [facility] [place] [facility] [place] [address] ProviderMariela MD [facility] [place] [address] Social History Tobacco Use Types [...] Cerner Conversion Note - Mariela ProviderMD - 07/04/2019 4:29 PM CDT Patient: SOFIA GILL Age: 79 [...] MD-INT Basic Information awake alert comfortable, ???Has increased his left lower extremity edema ???Prealbumin is 12.3 consistent with severe protein calorie malnutrition ???Discussed with the patient that she needs to eat well to help with the healing and fight bacteria, patient understands ???We'll give protein shakes 3 times a day with meals ???Her albumin is 1.9 and will give albumin infusion followed by diuresis ???I communicated with Dr. Mendenhall Review of Systems Constitutional: No fever, No chills. Eye: No discharge, No blurring, No double vision, No visual disturbances. Ear/Nose/Mouth/Throat: No nasal congestion, No sore throat. Respiratory: No shortness of breath, No cough. Cardiovascular: No chest pain, No palpitations. Gastrointestinal: No nausea, No vomiting. Genitourinary: No change in urine stream. Musculoskeletal: Left lower extremity swelling. Integumentary: Negative. Neurologic: Alert and oriented X4. Health Status Allergies: Allergies (10) Active Reaction amLODIPine None Documented valdecoxib None Documented Bextra Itching etodolac Itching Latex Itching Mobic Itching Naprosyn Itching penicillin Shortness of breath phentermine unknown reaction sulfa drugs Itching Current medications: Medications (47) Active Scheduled: (22) albumin human 50 Gram, IV Piggyback, 1-Time albumin human 25 Gram, IV Piggyback, Q12H aspirin 81 mg chew tab 81 mg 1 Tab, Oral, Daily calcium 500 mg/vit D 200 int unit tab 1 Tab, Oral, BID cefTRIAXone + NaCl 0.9% 50 mL 2 Gram, IV Piggyback, [id number] cyanocobalamin 1,000 mcg tab 5,000 mcg 5 [...] fluticasone 0.05% nasal spray 100 mcg 2 [place], Nostrils Both, BID magnesium hydroxide 8% liq [...] Sleep apnea Physical Examination VS/Measurements Vital Measurements 07/04/2019 15:53 EDT Systolic Blood Pressure 108 mmHg Diastolic Blood Pressure 43 mmHg LOW Mean Arterial Pressure (MAP)-BMDI 58 Temperature Source Oral Temperature Mode Fahrenheit Temperature, Fahrenheit 98.4 Deg F Clinical Temperature, C 36.9 Deg C Heart Rate Monitored 89 bpm Respiratory Rate 18 Breaths/Min Oxygen Saturation 98 % General: Alert [...] No lymphadenopathy neck, axilla, groin. Musculoskeletal: Left Lower extremity in a brace, Left lower extremity edema. Integumentary: Warm, Intact, No rash. Neurologic: Alert, Oriented, No focal deficits. Psychiatric: Cooperative, Appropriate mood & affect. Review / Management Results review: All Results 07/04/2019 6:35 EDT Sodium Level 136 mmol/L Potassium Level 4.5 mmol/L Chloride Level 101 mmol/L LOW Carbon Dioxide Level 30 mmol/L Anion Gap 10 Glucose Level 120 mg/dL HI Blood Urea Nitrogen 18 mg/dL Creatinine Level 0.70 mg/dL eGFR >60 mL/min/1.73m2 eGFR NonAfrican >60 mL/min/1.73m2 Bun/Creatinine 25.7 HI Calcium Level 8.1 mg/dL LOW Protein Total 7.1 Gram/dL Albumin Level 1.9 Gram/dL LOW Globulin 5.2 Gram/dL HI A/G Ratio 0.4 LOW Bilirubin Total 0.2 mg/dL Alk Phos 57 Units/Liter AST 14 Units/Liter ALT 11 Units/Liter LOW WBC 7.9 K/uL RBC 2.83 Million/uL LOW Hgb 8.8 g/dL LOW Hct 27.9 % LOW MCV 98.6 fL HI MCH 31.1 pg MCHC 31.5 Gram/dL LOW Platelet Count 535 K/uL HI MPV 8.4 fL LOW RDW 13.2 % Neut % 69.5 % Neut # 5.48 K/uL Lymph % 15.8 % LOW Lymph # 1.25 x10(3)/uL Laurel % 11.3 % HI Laurel # 0.89 K/uL Eos % 2.3 % Eos # 0.18 x10(3)/uL Baso % 0.5 % Baso # 0.04 x10(3)/uL Sed Rate Auto 53 mm/Hr HI Slide Review No IG# 0.05 x10(3)/uL IG% 0.60 % PT 11.4 Second(s) INR 1.1 07/03/2019 4:09 EDT Sodium Level 136 mmol/L Potassium Level 4.3 mmol/L Chloride Level 100 mmol/L LOW Carbon Dioxide Level 31 mmol/L Anion Gap 9 Glucose Level 113 mg/dL HI Blood Urea Nitrogen 20 mg/dL Creatinine Level 0.60 mg/dL eGFR >60 mL/min/1.73m2 eGFR NonAfrican >60 mL/min/1.73m2 Bun/Creatinine 33.3 HI Calcium Level 7.8 mg/dL LOW Protein Total 6.6 Gram/dL Albumin Level 1.9 Gram/dL LOW Globulin 4.7 Gram/dL HI A/G Ratio 0.4 LOW Bilirubin Total 0.2 mg/dL Alk Phos 54 Units/Liter AST 16 Units/Liter ALT 11 Units/Liter LOW CRP 8.1 mg/dL HI WBC 7.2 K/uL RBC 2.60 Million/uL LOW Hgb 8.2 g/dL LOW Hct 25.8 % LOW MCV 99.2 fL HI MCH 31.5 pg MCHC 31.8 Gram/dL LOW Platelet Count 552 K/uL HI MPV 8.5 fL LOW RDW 13.4 % Neut % 60.0 % Neut # 4.32 K/uL Lymph % 22.6 % Lymph # 1.63 x10(3)/uL Laurel % 13.7 % HI Laurel # 0.99 K/uL Eos % 2.9 % Eos # 0.21 x10(3)/uL Baso % 0.4 % Baso # 0.03 x10(3)/uL Sed Rate Auto 62 mm/Hr HI Slide Review No IG# 0.03 x10(3)/uL IG% 0.40 % . Condition: Stable. Impression and Plan [...] electrolytes. Fall risk precautions. Sleep apnea precautions. IV albumin infusion followed by diuresis. documented in this encounter Plan of Treatment Not on file documented as of this encounter Visit Diagnoses Not on filedocumented in this encounter
--- OUTSIDE RECORDS SUMMARY | 2024-08-09 13:28 | XMS_ITS | Encounter Summary ---
Author Organization [employer] Address [address] [place] [address] Care Team Providers Care Merchandising Representative Name Role Phone Unavailable Primary Care Provider Unavailabl e Encounter Details Date Type Department Care Team (Late st Contact Info) Description 08/23/2018 Transcribed Document [facility] [place] Family Medicine [facility] [place] [address] ProviderMariela MD [place] [address] Social History Tobacco Use Types [...] Conversion Note - Historical ProviderMD - 08/23/2018 3:00 PM CDT Pain Assessment Entered On: 08/23/2018 19:38 EDT Performed On: 08/23/2018 17:18 EDT by Vianca Morgan RN Intervention Information: acetaminophen Performed by Vianca Morgan RN on 08/23/2018 16:18:00 EDT acetaminophen,1000mg Oral Pain Assessment Pain Assessment : Follow-up assessment Pain Scale Goal : 3 Pain Scale Used : 0-10 Scale Vianca Morgan RN - 08/23/2018 19:38 EDT Pain Scale Intensity : 2 Vianca Morgan RN - 08/23/2018 19:38 EDT Image 4 - Images currently included in the form version of this document have not been included in the text rendition version of the form. documented in this encounter Plan of Treatment Not on file documented as of this encounter Visit Diagnoses Not on filedocumented in this encounter
--- OUTSIDE RECORDS SUMMARY | 2024-08-09 13:28 | XMS_ITS | Encounter Summary ---
Author Organization [employer] Address [address] [place] [address] Care Team Providers Care Semiconductor Packages Leak Tester Name Role Phone Unavailable Primary Care Provider Unavailabl e Encounter Details Date Type Department Care Team (Late st Contact Info) Description 07/05/2019 Transcribed Document [facility] [place] Family Medicine [facility] [place] [address] ProviderMariela MD [facility] [place] [address] Social History Tobacco Use Types [...] Conversion Note - Historical ProviderMD - 07/05/2019 7:52 AM CDT Interdisciplinary Rounds Entered On: 07/05/2019 7:57 EDT Performed On: 07/05/2019 7:52 EDT by MIGDALIA TOBIN PTA Interdisciplinary Rounds Working Summary Patient's Priority Needs : IV abx -> plan 8 wks then transition to PO PT/OT Brace in place-> dressing changed daily Coumadin inititated for DVT prophylaxis Current DRG/LOS : 560 Aftercare, musculoskeletal & connective tissue 21-25 days Anticipated DC 07/21/2019 PT Interdisciplinary Rounds Note : Ambulates 24ft with RWx min assist x2 and chair follow. WBAT on left with brace and complains of knee pain with amb. Min assist for bed mobility MIGDALIA TOBIN PTA - 07/05/2019 7:52 EDT documented in this encounter Plan of Treatment Not on file documented as of this encounter Visit Diagnoses Not on filedocumented in this encounter
--- OUTSIDE RECORDS SUMMARY | 2024-08-09 13:28 | XMS_ITS | Encounter Summary ---
Author Organization [employer] Address [address] [place] [address] Care Team Providers Care Dimpling Machine Operator Name Role Phone Unavailable Primary Care Provider Unavailabl e Encounter Details Date Type Department Care Team (Late st Contact Info) Description 06/19/2019 Transcribed Document [facility] Family Medicine [place] [address] ProviderMariela MD [address] [place] [address] Social History Tobacco Use Types [...] Cerner Conversion Note - Mariela ProviderMD - 06/19/2019 10:24 PM CDT Patient: SOFIA GILL Age: 79 years Sex: Female : 1940 Associated Diagnoses: Chronic venous insufficiency; Osteoarthritis; Sleep apnea; Sepsis; Left prothetic knee infection; Hypercholesteremia; Left knee pain; Elevated procalcitonin; Morbid obesity with BMI of 40.0-44.9, adult; Hypothyroid; Hypokalemia; Hyponatremia; GERD (gastroesophageal reflux disease); HTN (hypertension); Encephalopathy , toxic ; Leucocytosis; ESR raised; CRP elevated; Left knee cellulitis; Murmur, cardiac; Bacteremia due to group B Streptococcus agalactiae; Acute kidney injury Author: DONNA DRIVER MD-INT Basic Information -was confused , agitated & combative last night but not today - awake alert ,cooperative ,responsive - For amputation in AM by Dr. Hameed -knee aspirate andblood cx are positive strept agalactiae ( gp B) -improving renal function with hydration Review of Systems Constitutional: No fever, No chills. Eye: No discharge, No blurring, No double vision, No visual disturbances. Ear/Nose/Mouth/Throat: No nasal congestion, No sore throat. Respiratory: No shortness of breath, No cough. Cardiovascular: No chest pain, No palpitations. Gastrointestinal: No nausea, No vomiting. Genitourinary: No change in urine stream. Musculoskeletal: Lt knee pain & swelling. Integumentary: Negative. Neurologic: Alert and oriented X4. Health Status Allergies: Allergies (10) Active Reaction amLODIPine None Documented valdecoxib None Documented Bextra Itching etodolac Itching Latex Itching Mobic Itching Naprosyn Itching penicillin Shortness of breath phentermine unknown reaction sulfa drugs Itching Current medications: Medications (43) Active Scheduled: (15) calcium 500 mg/vit D 200 int unit tab 1 Tab, Oral, BID cefTRIAXone + NaCl 0.9% 50 mL 2 Gram, IV Piggyback, [id number] clindamycin/D5w 600 mg 50 mL, IV Piggyback, Q8H cyanocobalamin 1,000 mcg tab 5,000 mcg 5 Tab, Oral, Daily docusate sodium 100 mg cap 100 mg 1 Cap, Oral, BID DULoxetine DR 60 mg cap 60 mg 1 Cap, Oral, Daily heparin 5,000 units/1 mL inj 5,000 Units [...] cap 250 mg 1 Cap, Oral, Daily ubiquinone 50 mg Cap 50 mg 1 Cap, Oral, Daily Continuous: (1) NaCl 0.45% 1,000 mL 1,000 mL, IntraVENous, 100 mL/Hr PRN: (27) acetaminophen 325 mg tab 650 mg 2 [...] Oral, Q4H fluticasone 0.05% nasal spray 2 [place], Nostrils Both, BID gabapentin 300 mg cap [...] Sleep apnea Physical Examination VS/Measurements Vital Measurements 06/19/2019 21:24 EDT FiO2 21 % 06/19/2019 21:23 EDT Heart Rate Monitored 101 bpm HI Oxygen Saturation 95 % 06/19/2019 17:51 EDT Systolic Blood Pressure 131 mmHg Diastolic Blood Pressure 54 mmHg LOW Mean Arterial Pressure (MAP)-BMDI 72 Temperature Source Oral Temperature Mode Fahrenheit Temperature, Fahrenheit 99.4 Deg F Clinical Temperature, C 37.4 Deg C Heart Rate Monitored 103 bpm HI Respiratory Rate 18 Breaths/Min Oxygen Saturation 94 % Oxygen Therapy Mode Room air General: [...] Lymphatics: No lymphadenopathy neck, axilla, groin. Musculoskeletal: Lt knee swelling and tender on palpation and with movement. Integumentary: Warm, Intact, No rash. Neurologic: Alert, Oriented, No focal deficits. Psychiatric: Cooperative, Appropriate mood & affect. Review / Management Results review: All Results 06/19/2019 3:49 EDT Sodium Level 136 mmol/L Potassium Level 4.6 mmol/L Chloride Level 103 mmol/L Carbon Dioxide Level 22 mmol/L Anion Gap 16 Glucose Level 73 mg/dL LOW Blood Urea Nitrogen 31 mg/dL HI Creatinine Level 0.93 mg/dL eGFR >60 mL/min/1.73m2 eGFR NonAfrican 58 mL/min/1.73m2 LOW Bun/Creatinine 33.3 HI Calcium Level 7.9 mg/dL LOW Protein Total 4.4 Gram/dL LOW Albumin Level 1.5 Gram/dL LOW Globulin 2.9 Gram/dL A/G Ratio 0.5 LOW Bilirubin Total 0.3 mg/dL Alk Phos 188 Units/Liter HI AST 26 Units/Liter ALT 21 Units/Liter CRP 22.6 mg/dL HI CK 32 Units/Liter WBC 24.7 K/uL HI RBC 2.94 Million/uL LOW Hgb 9.1 Gram/dL LOW Hct 28.0 % LOW MCV 95.2 fL HI MCH 31.0 pg MCHC 32.5 Gram/dL Platelet Count 281 K/uL MPV 9.0 fL LOW RDW 13.1 % Neut % 86.8 % HI Neut # 21.44 K/uL HI Lymph % 4.5 % LOW Lymph # 1.12 K/uL LOW [place] % 6.6 % [place] # 1.64 K/uL HI Eos % 0.1 % LOW Eos # 0.03 K/uL LOW Baso % 0.2 % Baso # 0.05 K/uL Sed Rate Auto 72 mm/Hr HI Slide Review No IG# 0 x10(3)/uL IG% 2 % HI 06/18/2019 3:36 EDT Sodium Level 130 mmol/L LOW Potassium Level 5.3 mmol/L HI Chloride Level 97 mmol/L LOW Carbon Dioxide Level 24 mmol/L Anion Gap 14 Glucose Level 87 mg/dL Blood Urea Nitrogen 50 mg/dL HI Creatinine Level 1.51 mg/dL HI eGFR 40 mL/min/1.73m2 LOW eGFR NonAfrican 33 mL/min/1.73m2 LOW Bun/Creatinine 33.1 HI Calcium Level 8.1 mg/dL LOW WBC 21.4 K/uL HI RBC 3.34 Million/uL LOW Hgb 10.3 Gram/dL LOW Hct 32.3 % LOW MCV 96.7 fL HI MCH 30.8 pg MCHC 31.9 Gram/dL LOW Platelet Count 266 K/uL MPV 9.9 fL RDW 13.1 % Slide Review No . Impression and Plan Diagnosis Chronic venous [...] on IV antibiotics as per ID recommendations , pain control ,DVT prophylaxis , NPO after MN for surgical intervention in AM. Orders Order Profile (Selected) Inpatient Orders Ordered (Scheduled) CBC w/ Auto Diff: Specimen Type: Blood, AM Draw collect, 06/20/19 4:00:00 EDT, 1-Time, Stop: 06/20/19 4:00:00 EDT, Lab Collect CMP Comprehensive Metabolic Panel: Specimen Type: Blood, AM Draw collect, 06/20/19 4:00:00 EDT, 1-Time, Stop: 06/20/19 4:00:00 EDT, Lab Collect Magnesium Level: Specimen Type: Blood, AM Draw collect, 06/20/19 4:00:00 EDT, 1-Time, Stop: 06/20/19 4:00:00 EDT, Lab Collect Phosphorus Level: Specimen Type: Blood, AM Draw collect, 06/20/19 4:00:00 EDT, 1-Time, Stop: 06/20/19 4:00:00 EDT, Lab Collect. documented in this encounter Plan of Treatment Not on file documented as of this encounter Visit Diagnoses Not on filedocumented in this encounter
--- OUTSIDE RECORDS SUMMARY | 2024-08-09 13:28 | XMS_ITS | Encounter Summary ---
Author Organization [employer] Address [address] [place] [address] Care Team Providers Care E Business Specialist Name Role Phone Unavailable Primary Care Provider Unavailabl e Encounter Details Date Type Department Care Team (Late st Contact Info) Description 07/14/2019 Transcribed Document [facility] [place] [address] [place] [address] ProviderMariela MD [address] [place], [place] [id number] Social History Tobacco Use Types Packs/Day Years [...] Conversion Note - Historical ProviderMD - 07/14/2019 5:00 AM CDT Chart Check - Review Order Profile Entered On: 07/14/2019 7:20 EDT Performed On: 07/14/2019 5:00 EDT by Georgina Olivo RN Chart Check Powerplans Initiated/Discontinued as Appropriate : Yes All Active Orders Reviewed : Yes Georgina Olivo RN - 07/14/2019 7:20 EDT documented in this encounter Plan of Treatment Not on file documented as of this encounter Visit Diagnoses Not on filedocumented in this encounter
--- OUTSIDE RECORDS SUMMARY | 2024-08-09 13:28 | XMS_ITS | Encounter Summary ---
Author Organization [employer] Address [address] [place] [address] Care Team Providers Care Concrete Spreader Name Role Phone Unavailable Primary Care Provider Unavailabl e Encounter Details Date Type Department Care Team (Late st Contact Info) Description 06/30/2019 Transcribed Document [facility] [place] Family Medicine [facility] [place] [address] ProviderMariela MD [facility] [place] [address] Social History Tobacco Use [...] Cerner Conversion Note - Mariela ProviderMD - 06/30/2019 5:41 PM CDT Patient: SOFIA BARLOW Age: 79 [...] DRIVER MD-INT Basic Information awake alert comfortable, no trouble w. urination. ???Stated that oxycodone is not helping her pain ???[place] was added to Nucynta Review of Systems Constitutional: No fever, No [...] 0.9% 50 mL 2 Gram, IV Piggyback, [id number] cyanocobalamin 1,000 mcg tab 5,000 mcg 5 [...] 325/5 mg tab 1 Tab, Oral, Q4H albuterol-ipratropium inh 3 mL [...] fluticasone 0.05% nasal spray 100 mcg 2 [place], Nostrils Both, BID magnesium hydroxide 8% liq [...] Sleep apnea Physical Examination VS/Measurements Vital Measurements 06/30/2019 16:00 EDT Systolic Blood Pressure 108 mmHg Diastolic Blood Pressure 50 mmHg LOW Mean Arterial Pressure (MAP)-BMDI 64 Temperature Source Oral Temperature Mode Fahrenheit Temperature, Fahrenheit 98.4 Deg F Clinical Temperature, C 36.9 Deg C Heart Rate Monitored 86 bpm Respiratory Rate 16 Breaths/Min Oxygen Saturation [...] Review / Management Results review: All Results 06/29/2019 6:16 EDT Sodium Level 134 mmol/L LOW Potassium Level 4.5 mmol/L Chloride Level 102 mmol/L Carbon Dioxide Level 28 mmol/L Anion Gap 8 LOW Glucose Level 116 mg/dL HI Blood Urea Nitrogen 12 mg/dL Creatinine Level 0.60 mg/dL eGFR >60 mL/min/1.73m2 eGFR NonAfrican >60 mL/min/1.73m2 Bun/Creatinine 20.0 Calcium Level 8.1 mg/dL LOW . Condition: Stable. Impression and [...] renal function, blood glucose, and urine output. Yuliya on IV antibiotics as recommended by infectious disease. Pain control. DVT prophylaxis. Close monitoring fluid and electrolytes. Fall risk precautions. Sleep apnea precautions. Stress ulcer prophylaxis. Will switch patient to [place] one Nucynta control her pain. documented in this encounter Plan of Treatment Not on file documented as of this encounter Visit Diagnoses Not on filedocumented in this encounter
--- OUTSIDE RECORDS SUMMARY | 2024-08-09 13:28 | XMS_ITS | Encounter Summary ---
Author Organization [employer] Address [address] [place] [address] Care Team Providers Care Change Agent Name Role Phone Unavailable Primary Care Provider Unavailabl e Encounter Details Date Type Department Care Team (Late st Contact Info) Description 07/05/2019 Transcribed Document [facility] [place] Family Medicine Counts include 234 beds at the [facility] [place] [address] ProviderMariela MD Counts include 234 beds at the [facility] [place] [address] Social History Tobacco Use Types [...] Conversion Note - Historical ProviderMD - 07/05/2019 9:45 AM CDT Interdisciplinary Rounds Entered On: 07/05/2019 9:45 EDT Performed On: 07/05/2019 9:45 EDT by Daniella Hunt Dietitian Interdisciplinary Rounds Working Summary Patient's Priority Needs : IV abx -> plan 8 wks then transition to PO PT/OT Brace in place-> dressing changed daily Coumadin inititated for DVT prophylaxis Current DRG/LOS : 560 Aftercare, musculoskeletal & connective tissue 21-25 days Anticipated DC 07/21/2019 Dietitian Interdisciplinary Rounds Note : Regular + ensure BID 75-100% all meals LBM 07/03 Daniella Hunt Dietitian - 07/05/2019 9:45 EDT documented in this encounter Plan of Treatment Not on file documented as of this encounter Visit Diagnoses Not on filedocumented in this encounter
--- OUTSIDE RECORDS SUMMARY | 2024-08-09 13:28 | XMS_ITS | Encounter Summary ---
Author Organization [employer] Address [address] [place] [address] Care Team Providers Care Platform Engineer Name Role Phone Unavailable Primary Care Provider Unavailabl e Encounter Details Date Type Department Care Team (Late st Contact Info) Description 06/29/2019 Transcribed Document [facility] [place] [facility] [place] [address] ProviderMariela MD [address] [place] [address] Social History Tobacco Use Types Packs/Day [...] Conversion Note - Historical ProviderMD - 06/29/2019 5:14 PM CDT Care Management Assessment/Plan Entered On: 06/29/2019 17:47 EDT Performed On: 06/29/2019 17:14 EDT by YOANNA ARAUJO RN Care Management Note Care Management Note : Yoanna Araujo 06/29/2019 1330 prior to admission [...] falls. She denies ever requiring dialysis. She [facility] [employer] [facility] and she has been to the [place] [facility] and [facility] in the past. She has the following equipment at home: wheel chair, walker, cane and shower chair. Her discharge plan is to go to rehab prior to returning home. PCP: Flavia MARQUEZ [address] [phone] Customer Success Intern: Dr. Shemar Barger [address] [facility] [address] [address] Clemente Del Rio MD - Rheumatology - [address] [place] [address] Preferences: Home Health: [facility]: no preferences DME: [facility] - [address], [place] [phone] Residential: [facility] at [facility] facility: no preferences Will continue to monitor patient for anticipated discharge needs Care Management Note Report : YOANNA ARAUJO RN - 06/29/19 08:30:20 Yoanna Araujo 06/29/2019 0830 received fax from [facility] with approval for extended ltac coverage with next clinical review due on 07/12/2019. Auth#[id number]. Will continue to follow for anticipated discharge needs. YOANNA ARAUJO RN - 06/28/19 08:35:06 Yoanna Araujo 06/28/2019 0830 Faxed clinical review to [facility] at to request approval for extended Ltac services. Auth#[id number]. Pending Approval. Documentation Status Complete : Yes YOANNA ARAUJO RN - 06/29/2019 17:14 EDT documented in this encounter Plan of Treatment Not on file documented as of this encounter Visit Diagnoses Not on filedocumented in this encounter
--- OUTSIDE RECORDS SUMMARY | 2024-08-09 13:28 | XMS_ITS | Encounter Summary ---
Author Organization [employer] Address [address] [place] [address] Care Team Providers Care Telephone Answerer Name Role Phone Unavailable Primary Care Provider Unavailabl e Encounter Details Date Type Department Care Team (Late st Contact Info) Description 07/05/2019 Transcribed Document [facility] [place] [facility] [place] [address] ProviderMariela MD [facility] [place] [address] Social History Tobacco Use Types [...] Conversion Note - Historical ProviderMD - 07/05/2019 7:07 PM CDT Patient: SOFIA BARLOW Age: [...] pain under control, no trouble w. urination. - Has low grade fever -started on IV albumin followed by diuresis Review of Systems Constitutional: No fever, No [...] 0.9% 50 mL 2 Gram, IV Piggyback, [id number] cyanocobalamin 1,000 mcg tab 5,000 mcg 5 [...] fluticasone 0.05% nasal spray 100 mcg 2 Terra [place], Nostrils Both, BID magnesium hydroxide 8% liq [...] Sleep apnea Physical Examination VS/Measurements Vital Measurements 07/05/2019 14:00 EDT Systolic Blood Pressure 143 mmHg HI Diastolic Blood Pressure 46 mmHg LOW Temperature Source Oral Temperature Mode Fahrenheit Temperature, Fahrenheit 99.9 Deg F HI Clinical Temperature, C 37.7 Deg C Heart Rate Monitored 97 bpm Respiratory Rate 20 Breaths/Min Oxygen Saturation 94 % General: Alert and oriented, No acute [...] axilla, groin. Musculoskeletal: Normal strength, No swelling, LLE in a brace. Integumentary: Warm, Intact, No rash. Neurologic: Alert, [...] 15.8 % LOW Lymph # 1.25 x10(3)/uL Niagara % 11.3 % HI [place]agara # 0.89 K/uL Eos % 2.3 % Eos # 0.18 x10(3)/uL Baso % 0.5 % Baso # 0.04 x10(3)/uL Sed Rate Auto 53 mm/Hr HI Slide Review No IG# 0.05 x10(3)/uL IG% 0.60 % PT 11.4 Second(s) INR 1.1 . Condition: Stable. Impression [...] 1-Time, Stop: 07/06/19 4:00:00 EDT, Nurse Collect. documented in this encounter Plan of Treatment Not on file documented as of this encounter Visit Diagnoses Not on filedocumented in this encounter
--- OUTSIDE RECORDS SUMMARY | 2024-08-09 13:28 | XMS_ITS | Encounter Summary ---
Author Organization [employer] Address [address] [place] [address] Care Team Providers Care Sharepoint Architect Name Role Phone Unavailable Primary Care Provider Unavailabl e Encounter Details Date Type Department Care Team (Late st Contact Info) Description 08/23/2018 Transcribed Document [facility] [place] [facility] [place] [address] ProviderMariela MD [facility] [place] [address] Social History Tobacco Use Types [...] Conversion Note - Historical ProviderMD - 08/23/2018 7:14 AM CDT Patient: SOFIA BARLOW Age: 78 Years Sex: Female : 1940 Assessment/Plan POD #1 s/p Right TKA--Patient's pain is well controlled. Pull drain today. Patient is participating in post operative therapy diligently. Knee extension progressing well. [address] patients affected heel, padded, onto bucket, 1 foot above hip to encourage knee extension for 30 minutes. Prone hangs BID with 5# weight. Keep dressing clean, dry and intact. HOLD KNEE FLEXION EXERCISES FOR 48 HOURS. Patient had significant increase in Creatinine from baseline. Will hold d/c, encourage PO water intake. Plan for d/c to SNF. VTE Prophylaxis - Medical Sequential Compression Device Start: 08/22/18 12:12:00 EDT, Bilateral, Length: Knee High, Continuous Order (NIMO EPPS) Subjective Patient's pain well controlled. Had some complaints about lack of assistance to toilet. Vital Signs T: 36.6 ??C TMIN: 36.1 ??C TMAX: 36.9 ??C HR: 80(Monitored) RR: 16 BP: 119/49 SpO2: 96% HT: 151.13 cm WT: 97.73 kg BMI: 42.8 Oxygen Settings (Last) Oxygen Therapy Mode: Room air (08/23/18 06:00:00 EDT) Oxygen Flow Rate: 2 Liter/Min (08/22/18 12:40:00 EDT) Intake & Output Totals Last 24 Hours (7a-7a) Input Total: 2470 mL Output Total: 891 mL Balance: 1579 mL Physical Exam Dressing c/d/i Mild knee swelling noted SILT throughout the extremity including 1st and 4th webspace TA,GAS,QUAD firing Knee extension 0* Palpable Pulses for DP/PT Compartments of the leg soft/compressible Medications aspirin, 81 mg= 1 Tab, Oral, BID Benadryl, 25 mg= 1 Tab, Oral, Q4H, PRN Coenzyme Q10, 50 mg= 1 Cap, Oral, Daily Colace, 100 mg= 1 Cap, Oral, BID Crestor, 10 mg= 1 Tab, Oral, At Bedtime cyanocobalamin, 5000 mcg= 5 Tab, Oral, Daily Cymbalta, 60 mg= 1 Cap, Oral, Daily dexamethasone, 10 mg= 1 mL, IV Push, 1-Time diphenhydrAMINE, 12.5 mg= 0.5 Tab, Oral, At Bedtime, PRN Dulcolax Laxative, 10 mg= 1 Supp, Rectal, 1-Time, PRN Fleet Enema, 133 mL, Rectal, 1-Time, PRN fluticasone 50 mcg/inh nasal spray, 100 mcg, Nostrils Both, BID, PRN gabapentin, 300 mg= 1 Cap, Oral, At Bedtime hydrALAZINE, 10 mg= 0.5 mL, IV Push, Q6H, PRN loratadine, 10 mg= 1 Tab, Oral, Daily [...] Tylenol, 1000 mg= 2 Tab, Oral, TID vancomycin + Sodium Chloride 0.9% intravenous solution 250 mL Zofran, 4 mg= 2 mL, IV Push, Q8H, PRN Lab Results Test Name Test Result Date/Time Sodium Level 137 mmol/L 08/23/2018 05:18 EDT Potassium Level 4.4 mmol/L 08/23/2018 05:18 EDT Chloride Level 103 mmol/L 08/23/2018 05:18 EDT Carbon Dioxide Level 29 mmol/L 08/23/2018 05:18 EDT Anion Gap 9 08/23/2018 05:18 EDT Glucose Level 116 mg/dL (High) 08/23/2018 05:18 EDT Blood Urea Nitrogen 38 mg/dL (High) 08/23/2018 05:18 EDT Creatinine Level 1.94 mg/dL (High) 08/23/2018 05:18 EDT eGFR 30 mL/min/1.73m2 (Low) 08/23/2018 05:18 EDT eGFR NonAfrican 25 mL/min/1.73m2 (Low) 08/23/2018 05:18 EDT Bun/Creatinine 19.6 08/23/2018 05:18 EDT Calcium Level 8.0 mg/dL (Low) 08/23/2018 05:18 EDT Hgb 9.5 Gram/dL (Low) 08/23/2018 05:18 EDT Hct 29.2 % (Low) 08/23/2018 05:18 EDT ABO/Rh A POS 08/22/2018 08:18 EDT Antibody Screen (Tube) Negative ABSC 08/22/2018 08:18 EDT documented in this encounter Plan of Treatment Not on file documented as of this encounter Visit Diagnoses Not on filedocumented in this encounter
--- OUTSIDE RECORDS SUMMARY | 2024-08-09 13:28 | XMS_ITS | Encounter Summary ---
Author Organization [employer] Address [address] [place] [address] Care Team Providers Care Mill Platform Supervisor Name Role Phone Unavailable Primary Care Provider Unavailabl e Encounter Details Date Type Department Care Team (Late st Contact Info) Description 07/05/2019 Transcribed Document [facility] [address] [place] [address] Jordan Barahona MD [address] [place], [place] [id number] Social History Tobacco Use Types Packs/Day Years [...] Conversion Note - Jordan Barahona MD - 07/05/2019 5:26 PM EDT Patient: SOFIA GILL Age: 79 [...] 24 hrs) Last Charted Minimum Maximum Temp H 99.9 (JULY 04:) 98.8 (JULY 04:00) H 99.8 (JULY 03:) Mon HR 97 (JULY 04:00) 89 (JULY 04:00) 103 (JULY 03:) Resp Rate 20 (JULY 04 14:00) 16 (JULY 04:00) 20 (JULY 04:) SBP H 143 (JULY 04:) 126 (JULY 03:00) H 147 (JULY 03:) DBP L 46 (JULY 04:) L 44 (JULY 03:00) L 55 (JULY 04:) MAP 67 (JULY 03:00) 67 (JULY 03:00) 67 (JULY 03:) SpO2 94 (JULY 04:) L 93 (JULY 04:) 99 (JULY 03:) Physical Examination: Gen: Alert, in no acute [...] (JULY 02) L 2.4 (JUN 26) Micro: [facility]: 06/15 [facility] Blood [...]
--- OUTSIDE RECORDS SUMMARY | 2024-08-09 13:28 | XMS_ITS | Encounter Summary ---
Author Organization [employer] Address [address] [place] [address] Care Team Providers Care Combat Systems Officer Name Role Phone Unavailable Primary Care Provider Unavailabl e Encounter Details Date Type Department Care Team (Late st Contact Info) Description 07/04/2019 Transcribed Document [facility] [place] [address] [place] [address] ProviderMariela MD [address] [place], [place] [id number] Social History Tobacco Use Types Packs/Day Years [...] Note - Historical ProviderMD - 07/04/2019 5:00 PM CDT Chart Check - Review Order Profile Entered On: 07/04/2019 17:53 EDT Performed On: 07/04/2019 17:00 EDT by Caitlyn Chauhan Rn Chart Check Powerplans Initiated/Discontinued as Appropriate : Yes All Active Orders Reviewed : Yes Caitlyn Chauhan Rn - 07/04/2019 17:53 EDT documented in this encounter Plan of Treatment Not on file documented as of this encounter Visit Diagnoses Not on filedocumented in this encounter
--- OUTSIDE RECORDS SUMMARY | 2024-08-09 13:29 | XMS_ITS | Encounter Summary ---
Author Organization [email or web address] Address [address] [place] [address] Care Team Providers Care Brewmaster Name Role Phone Unavailable Primary Care Provider Unavailabl e Encounter Details Date Type Department Care Team (Late st Contact Info) Description 07/01/2019 Transcribed Document [facility] [place] [facility] [place] [address] ProviderMariela MD [address] [place] [id number] Social History Tobacco Use Types Packs/Day Years Used Date Smoking Tobacco: Never Assessed Comments Unknown Sex and Gender Information Value Date Recorded Sex Assigned at Female 09/02/2021 8:57 PM CDT Legal Sex Female 6:58 PM CDT Gender Identity Female 09/02/2021 8:57 PM CDT Sexual Orientation Not on file documented as of this encounter Miscellaneous Notes * [employer]ner Conversion Note - Historical ProviderMD - 07/01/2019 2:00 AM CDT Efficiency Manager Details Entered On: 07/01/2019 0:58 EDT Performed On: 07/01/2019 2:00 EDT by NUSRAT TODD RN Order Details Transport Mode Order Detail : Stretcher/Gurney Isolation Precautions Order Detail : Standard Precautions Order Detail : N/A IV Order Detail : 1 Oxygen Order Detail : 0 Nurse Collect Order Detail : 1 Lift/Transfer : Moderate assist Central Line Order Detail : Yes Room Service : Appropriate Arterial Line : No NUSRAT TODD RN - 07/01/2019 0:58 EDT Electronically signed by Maureen Cornejo Conversion Marketing Services Vice President [employer] at 06/16/2022 8:27 PM CDT documented in this encounter Plan of Treatment Not on file documented as of this encounter Visit Diagnoses Not on filedocumented in this encounter
--- OUTSIDE RECORDS SUMMARY | 2024-08-09 13:29 | XMS_ITS | Encounter Summary ---
Author Organization [employer] Address [address] [place] [address] Care Team Providers Care Medical Claims Assistant Name Role Phone Unavailable Primary Care Provider Unavailabl e Encounter Details Date Type Department Care Team (Late st Contact Info) Description 06/20/2019 Transcribed Document [facility] Family Medicine [address] [place] [address] ProviderMariela MD [address] [place], [place] [phone] Social History Tobacco Use Types Packs/Day Years Used Date Smoking Tobacco: Never Assessed Comments Unknown Sex and Gender Information Value Date Recorded Sex Assigned at Female 09/02/2021 8:57 PM CDT Legal Sex Female 6:58 PM CDT Gender Identity Female 09/02/2021 8:57 PM CDT Sexual Orientation Not on file documented as of this encounter Miscellaneous Notes * Cerner Conversion Note - Historical ProviderMD - 06/20/2019 12:51 PM CDT UM Authorization Entered On: 06/20/2019 12:52 EDT Performed On: 06/20/2019 12:51 EDT by TIESHA AQUINO RN-Utilization Review Primary Insurance Authorization Authorization and Policy Numbers : Insurance 1 Health Plan: [facility] MEDICARE ADVANTAGE Policy Number: [id number] Authorization Number: Insurance Primary Name : [employer] MED[employer]ARE ADVANTAGE Policy Number: [id number] Authorization Status-Primary : Admit approved Reference Number-Primary : [id number] Authorization Number-Primary : [id number] Number of Days Authorized-Primary : 10 Day(s) Authorized Service Begin Date-Primary : 06/16/2019 EDT Authorized Service End Date-Primary : 06/26/2019 EDT Authorization Comments-Primary : [facility] approved per fax for 11 days Historical Authorization Comments-Primary : Comment 1: [facility] auth pending per website (TIESHA AQUINO RN-Utilization Review 06/19/2019 15:52) Comment 2: Clinicals faxed via [employer] (Michelle Jimenez Rn-Utilization Review 06/19/2019 09:50) Comment 3: Attempted auth on [facility] portal, message that notification cannot be completed online, Call number on back of card (Michelle Jimenez Rn-Utilization Review 06/17/2019 10:02) TIESHA AQUINO RN-Utilization Review - 06/20/2019 12:51 EDT documented in this encounter Plan of Treatment Not on file documented as of this encounter Visit Diagnoses Not on filedocumented in this encounter
--- OUTSIDE RECORDS SUMMARY | 2024-08-09 13:29 | XMS_ITS | Encounter Summary ---
Author Organization [employer] Address [address] [place] [address] Care Team Providers Care Metal Riveter Name Role Phone Unavailable Primary Care Provider Unavailabl e Encounter Details Date Type Department Care Team (Late st Contact Info) Description 06/20/2019 Transcribed Document [facility] [place] [facility] [place] [address] ProviderMariela MD [address] [place] [address] Social History Tobacco Use Types Packs/Day [...] Conversion Note - Historical ProviderMD - 06/20/2019 7:16 PM CDT Central Line Checklist Entered On: 06/20/2019 19:19 EDT Performed On: 06/20/2019 19:16 EDT by George Dial Rn-Enterostomal Central Line Checklist History and Physical on Chart : Yes Central Line Insertion Facility : [facility] [place] Central Line Insertion Start Date/Time : 06/20/2019 16:10 EDT Central Catheter Type : Power injection PICC Central Line Lot Number : [id number] Central Line Vessel Cannulated : Median basilic Central Line Laterality : Left Central Line Number of Lumens : 1 Central Line Insertion Site : Upper arm, left Central Line Insertion Reason : New indication PICC Line Exclusion Criteria : None CL Number of Insertion Attempts: : 7 Modified Seldinger Used : Yes Portable Ultrasound Device : Yes Central Line Clean Hands : Yes Site Preparation Procedure : 30 second scrub plus 30 second dry time Central IV Full Body Drape Used : Yes Proper Use of Sterile Apparel per Policy : Yes Procedure to be Performed : picc insertion Time Out Pause Time : 06/20/2019 15:55 EDT All Activity Suspended : Yes Team Verbally Confirms Information : Correct patient identity, Correct side and site are marked, Consent form is present and accurate, Agreement on the procedure to be done, Correct patient position, Relevant images/results properly labeled/appropriately displayed, Confirm the skin prep has dried, Performed before each procedure if multiple procedures CL Time Out Additional Attendees : dorina dior, rn 1% Lidocaine Amt Used as Anesthetic : 7 mL Central IV Sterile Field Maintained : Yes Central IV Sterile Technique Maintained : Yes Central Line Insertion Complications : pt. states right side is best, veins accessed but guidwire would not thread, 5 attempts. left arm attempted and basilic vein accessed succesfully after 2 attempts Central Line Secure with : Stabilization device Central Line Dressing Dated : Yes RN Notified CL is Approved to be Used : Yes Central Line Tip Location in SVC : Yes Nurse Notified Name : Anika Clark RN Gallivan, George Sierra Rn-Enterostomal - 06/20/2019 19:16 EDT documented in this encounter Plan of Treatment Not on file documented as of this encounter Visit Diagnoses Not on filedocumented in this encounter
--- OUTSIDE RECORDS SUMMARY | 2024-08-09 13:29 | XMS_ITS | Encounter Summary ---
Author Organization [employer] Address [address] [place] [address] Care Team Providers Care Lifestyle Coordinator Name Role Phone Unavailable Primary Care Provider Unavailabl e Encounter Details Date Type Department Care Team (Late st Contact Info) Description 06/21/2019 Transcribed Document [facility] [place] [address] [place] [address] ProviderMariela MD [address] [place], [place] [phone] Social History Tobacco Use Types Packs/Day Years Used Date Smoking Tobacco: Never Assessed Comments Unknown Sex and Gender Information Value Date Recorded Sex Assigned at Female 09/02/2021 8:57 PM CDT Legal Sex Female 6:58 PM CDT Gender Identity Female 09/02/2021 8:57 PM CDT Sexual Orientation Not on file documented as of this encounter Miscellaneous Notes * Cerner Conversion Note - Historical ProviderMD - 06/21/2019 5:00 AM CDT Chart Check - Review Order Profile Entered On: 06/21/2019 3:03 EDT Performed On: 06/21/2019 5:00 EDT by Reid Ramon Rn-Charge Chart Check Powerplans Initiated/Discontinued as Appropriate : Yes All Active Orders Reviewed : Yes Reid Ramon Rn-Charge - 06/21/2019 3:03 EDT documented in this encounter Plan of Treatment Not on file documented as of this encounter Visit Diagnoses Not on filedocumented in this encounter
--- OUTSIDE RECORDS SUMMARY | 2024-08-09 13:29 | XMS_ITS | Encounter Summary ---
Author Organization [employer] Address [address] [place] [address] Care Team Providers Care Tax Accounting Assistant Name Role Phone Unavailable Primary Care Provider Unavailabl e Encounter Details Date Type Department Care Team (Late st Contact Info) Description 06/18/2019 Transcribed Document [facility] [place] [address] [place] [address] ProviderMariela MD [address] [place], [place] [phone] Social History Tobacco Use Types Packs/Day Years [...] Conversion Note - Historical ProviderMD - 06/18/2019 5:00 AM CDT Chart Check - Review Order Profile Entered On: 06/18/2019 6:44 EDT Performed On: 06/18/2019 5:00 EDT by Ophelia Ling RN Chart Check Powerplans Initiated/Discontinued as Appropriate : Yes All Active Orders Reviewed : Yes Ophelia Ling RN - 06/18/2019 6:44 EDT documented in this encounter Plan of Treatment Not on file documented as of this encounter Visit Diagnoses Not on filedocumented in this encounter
--- OUTSIDE RECORDS SUMMARY | 2024-08-09 13:29 | XMS_ITS | Encounter Summary ---
Author Organization [employer] Address [address] [place] [address] Care Team Providers Care Engineering Mgr Name Role Phone Unavailable Primary Care Provider Unavailabl e Encounter Details Date Type Department Care Team (Late st Contact Info) Description 06/20/2019 Transcribed Document [facility] [place] [address] [place] [address] ProviderMariela MD [address] [place], [place] [phone] Social History Tobacco Use Types Packs/Day Years [...] Conversion Note - Historical ProviderMD - 06/20/2019 10:00 PM CDT Patch Check Entered On: 06/21/2019 0:37 EDT Performed On: 06/20/2019 22:00 EDT by Reid Ramon, Rn-Charge Patch Check Patch Check Result : Yes Patch Check - Type of Patch : scopolamine (Transderm-Scop) Reid Ramon Rn-Charge - 06/21/2019 0:37 EDT documented in this encounter Plan of Treatment Not on file documented as of this encounter Visit Diagnoses Not on filedocumented in this encounter
--- OUTSIDE RECORDS SUMMARY | 2024-08-09 13:29 | XMS_ITS | Encounter Summary ---
Author Organization [employer] Address [address] [place] [address] Care Team Providers Care Experimental Rocketsled Mechanic Name Role Phone Unavailable Primary Care Provider Unavailabl e Encounter Details Date Type Department Care Team (Late st Contact Info) Description 08/24/2018 Transcribed Document [facility] [place] [address] [place] [address] ProviderMariela MD [address] [place], [place] [phone] Social History Tobacco Use Types Packs/Day Years Used Date Smoking Tobacco: Never Assessed Comments Unknown Sex and Gender Information Value Date Recorded Sex Assigned at Female 09/02/2021 8:57 PM CDT Legal Sex Female 6:58 PM CDT Gender Identity Female 09/02/2021 8:57 PM CDT Sexual Orientation Not on file documented as of this encounter Miscellaneous Notes * Cerner Conversion Note - Historical ProviderMD - 08/24/2018 5:00 AM CDT Chart Check - Review Order Profile Entered On: 08/24/2018 4:21 EDT Performed On: 08/24/2018 5:00 EDT by Nishi Osuna RN Chart Check Powerplans Initiated/Discontinued as Appropriate : Yes All Active Orders Reviewed : Yes Nishi Osuna RN - 08/24/2018 4:21 EDT Electronically signed by Maureen Cornejo Conversion Waiter/Waitress Tourist Class Cerner at 06/16/2022 8:27 PM CDT documented in this encounter Plan of Treatment Not on file documented as of this encounter Visit Diagnoses Not on filedocumented in this encounter
--- OUTSIDE RECORDS SUMMARY | 2024-08-09 13:29 | XMS_ITS | Encounter Summary ---
Author Organization [employer] Address [address] [place] [address] Care Team Providers Care Shell Reprint Operator Name Role Phone Unavailable Primary Care Provider Unavailabl e Encounter Details Date Type Department Care Team (Late st Contact Info) Description 08/23/2018 Transcribed Document [facility] [place] [address] [place] [address] ProviderMariela MD [address] [place], [place] [phone] Social History Tobacco Use Types Packs/Day Years [...] Note - Historical ProviderMD - 08/23/2018 5:00 AM CDT Chart Check - Review Order Profile Entered On: 08/23/2018 4:25 EDT Performed On: 08/23/2018 5:00 EDT by Nishi Osuna RN Chart Check Powerplans Initiated/Discontinued as Appropriate : Yes All Active Orders Reviewed : Yes Nishi Osuna RN - 08/23/2018 4:25 EDT documented in this encounter Plan of Treatment Not on file documented as of this encounter Visit Diagnoses Not on filedocumented in this encounter
--- OUTSIDE RECORDS SUMMARY | 2024-08-09 13:29 | XMS_ITS | Encounter Summary ---
Author Organization [employer] Address [address] [place] [address] Care Team Providers Care Applications Developer Name Role Phone Unavailable Primary Care Provider Unavailabl e Encounter Details Date Type Department Care Team (Late st Contact Info) Description 06/20/2019 Transcribed Document [facility] [place] Family Medicine [address] [place] [address] ProviderMariela MD [address] [place] [id number] Social History Tobacco Use Types Packs/Day Years [...] Conversion Note - Historical ProviderMD - 06/20/2019 5:00 AM CDT Chart Check - Review Order Profile Entered On: 06/20/2019 3:42 EDT Performed On: 06/20/2019 5:00 EDT by Adrianna Ortiz RN Chart Check Powerplans Initiated/Discontinued as Appropriate : Yes All Active Orders Reviewed : Yes Adrianna Ortiz, RN - 06/20/2019 3:42 EDT documented in this encounter Plan of Treatment Not on file documented as of this encounter Visit Diagnoses Not on filedocumented in this encounter
--- OUTSIDE RECORDS SUMMARY | 2024-08-09 13:29 | XMS_ITS | Encounter Summary ---
Author Organization [employer] Address [address] [place] [address] Care Team Providers Care Global Engineering Manager Name Role Phone Unavailable Primary Care Provider Unavailabl e Encounter Details Date Type Department Care Team (Late st Contact Info) Description 07/01/2019 Transcribed Document [facility] [place] [facility] [place] [address] ProviderMariela MD [facility] [place] [address] Social History Tobacco Use Types [...] Cerner Conversion Note - Mariela ProviderMD - 07/01/2019 10:09 PM CDT Patient: SOFIA BARLOW Age: 79 [...] DRIVER MD-INT Basic Information awake alert comfortable, -c/o pain .Pt on nucynta 100mg q 6h & norco 5mg q 4h- -increase norco to 7.5 mg q 4 h -no diarrhea Review of Systems Constitutional: No fever, No [...] 0.9% 50 mL 2 Gram, IV Piggyback, [id number] cyanocobalamin 1,000 mcg tab 5,000 mcg 5 [...] fluticasone 0.05% nasal spray 100 mcg 2 [place], Nostrils Both, BID magnesium hydroxide 8% liq [...] Sleep apnea Physical Examination VS/Measurements Vital Measurements 07/01/2019 19:00 EDT Systolic Blood Pressure 145 mmHg HI Diastolic Blood Pressure 50 mmHg LOW Temperature Source Oral Temperature Mode Fahrenheit Temperature, Fahrenheit 98.8 Deg F Clinical Temperature, C 37.1 Deg C Heart Rate Monitored 98 bpm Respiratory Rate 17 Breaths/Min Oxygen Saturation 99 % General: Alert [...] blood glucose, and urine output. cont on iv antibiotics as per ID recommendations .will adjust pain meds.Fall risk precautions sleep apnea precautions .stress ulcer prophylaxis. documented in this encounter Plan of Treatment Not on file documented as of this encounter Visit Diagnoses Not on filedocumented in this encounter
--- OUTSIDE RECORDS SUMMARY | 2024-08-09 13:29 | XMS_ITS | Encounter Summary ---
Author Organization [employer] Address [address] [place] [address] Care Team Providers Care Pony Edger Name Role Phone Unavailable Primary Care Provider Unavailabl e Encounter Details Date Type Department Care Team (Late st Contact Info) Description 08/24/2018 Transcribed Document [facility] [place] [facility] [place] [address] ProviderMariela MD [facility] [place] [address] Social History Tobacco Use Types [...] Conversion Note - Historical ProviderMD - 08/24/2018 9:00 PM CDT Pain Assessment Entered On: 08/25/2018 1:30 EDT Performed On: 08/24/2018 23:27 EDT by Nishi Osuna RN Intervention Information: acetaminophen Performed by Nishi Osuna RN on 08/24/2018 22:27:00 EDT acetaminophen,1000mg Oral Pain Assessment Pain Assessment : Follow-up assessment Pain Scale Goal : 3 Pain Scale Used : 0-10 Scale Pain Intervention, Drug : Medicated Pain Improved by Intervention : Yes Nishi Osuna RN - 08/25/2018 1:30 EDT Pain Scale Intensity : 0 Nishi Osuna RN - 08/25/2018 1:30 EDT Image 4 - Images currently included in the form version of this document have not been included in the text rendition version of the form. documented in this encounter Plan of Treatment Not on file documented as of this encounter Visit Diagnoses Not on filedocumented in this encounter
--- OUTSIDE RECORDS SUMMARY | 2024-08-09 13:29 | XMS_ITS | Encounter Summary ---
Author Organization [employer] Address [address] [place] [address] Care Team Providers Care Metal Control Coordinator Name Role Phone Unavailable Primary Care Provider Unavailabl e Encounter Details Date Type Department Care Team (Late st Contact Info) Description 08/23/2018 Transcribed Document [facility] [place] [facility] [place] [address] ProviderMariela MD [facility] [place] [address] Social History Tobacco Use Types [...] Conversion Note - Historical ProviderMD - 08/23/2018 9:00 AM CDT Pain Assessment Entered On: 08/23/2018 11:44 EDT Performed On: 08/23/2018 9:23 EDT by Vianca Morgan RN Intervention Information: acetaminophen Performed by Vianca Morgan RN on 08/23/2018 08:23:00 EDT acetaminophen,1000mg Oral Pain Assessment Pain Assessment : Follow-up assessment Pain Scale Goal : 3 Pain Scale Used : 0-10 Scale Vianca Morgan RN - 08/23/2018 11:44 EDT Pain Scale Intensity : 2 Vianca Morgan RN - 08/23/2018 11:44 EDT Image 4 - Images currently included in the form version of this document have not been included in the text rendition version of the form. Electronically signed by Maureen Cornejo Conversion Press Operator [employer] at 06/16/2022 8:25 PM CDT documented in this encounter Plan of Treatment Not on file documented as of this encounter Visit Diagnoses Not on filedocumented in this encounter
--- OUTSIDE RECORDS SUMMARY | 2024-08-09 13:29 | XMS_ITS | Encounter Summary ---
Author Organization [employer] Address [address] [place] [address] Care Team Providers Care Copy Holder Name Role Phone Unavailable Primary Care Provider Unavailabl e Encounter Details Date Type Department Care Team (Late st Contact Info) Description 06/30/2019 Transcribed Document [facility] [place] Family Medicine [facility] [place] [address] ProviderMariela MD [facility] [place] [address] Social History Tobacco Use Types [...] Conversion Note - Historical ProviderMD - 06/30/2019 5:05 PM CDT Patient: SOFIA GILL Age: 79 years Sex: Female : 1940 Associated Diagnoses: None Author: ARA JONES MD-INF ID Progress Note CC: Left knee pain Current antimicrobial therapy: Rocephin IV Subjective: Patient stable with no fevers working with PT, on iv abx. HD ok no new changes today. Objective Vitals Signs (last 24 hrs) Last Charted Minimum Maximum Temp 98.4 (JUNE 29 16:00) 98.4 (JUNE 29 16:00) 98.9 (JUN 28 19:00) Mon HR 86 (JUNE 29 16:00) 83 (JUNE 29 07:00) 93 (JUN 28 20:00) Resp Rate 16 (JUNE 29 16:00) 16 (JUNE 29 07:00) 18 (JUN 28 19:00) SBP 108 (JUNE 29 16:00) 108 (JUNE 29 16:) H 148 (JUN 28 23:00) DBP L 50 (JUNE 29 16:) L 47 (JUNE 29:) L 59 (JUN 28 23:00) MAP 64 (JUNE 29 16:00) 64 (JUNE 29 16:00) 66 (JUN 28 20:00) SpO2 96 (JUNE 29:) 94 (JUNE 29:) 98 (JUN 28:) Physical Examination: Gen: Alert, in no acute [...] 26) ALB L 2.4 (JUN 26) Micro: [facility]: 06/15 [facility] Blood cultures positive for group B [...] PICC line in lifelong oral suppression - labs on Wednesday of cbc/crp/cmp and esr - will see again on Wednesday documented in this encounter Plan of Treatment Not on file documented as of this encounter Visit Diagnoses Not on filedocumented in this encounter
--- OUTSIDE RECORDS SUMMARY | 2024-08-09 13:29 | XMS_ITS | Encounter Summary ---
Author Organization [employer] Address [address] [place] [address] Care Team Providers Care Multimedia Programmer Name Role Phone Unavailable Primary Care Provider Unavailabl e Encounter Details Date Type Department Care Team (Late st Contact Info) Description 06/20/2019 Transcribed Document [facility] [address] [place] [address] ProviderMariela MD [address] [place] [address] Social History Tobacco Use Types Packs/Day Years [...] Conversion Note - Historical ProviderMD - 06/20/2019 2:00 AM CDT Cheese Cook Details Entered On: 06/20/2019 1:18 EDT Performed On: 06/20/2019 2:00 EDT by Adrianna Ortiz RN Order Details Transport Mode Order Detail : Wheelchair Isolation Precautions Order Detail : Contact precautions, Standard Precautions Order Detail : N/A IV Order Detail : 1 Nurse Collect Order Detail : 0 Lift/Transfer : Moderate assist Central Line Order Detail : No Room Service : Appropriate Arterial Line : No Adrianna Ortiz RN - 06/20/2019 1:18 EDT Electronically signed by Maureen Cornejo Conversion Yarn Preparation Supervisor Cerner at 06/16/2022 8:15 PM CDT documented in this encounter Plan of Treatment Not on file documented as of this encounter Visit Diagnoses Not on filedocumented in this encounter
--- OUTSIDE RECORDS SUMMARY | 2024-08-09 13:29 | XMS_ITS | Encounter Summary ---
Author Organization [employer] Address [address] [place] [address] Care Team Providers Care Melon Packer Name Role Phone Unavailable Primary Care Provider Unavailabl e Encounter Details Date Type Department Care Team (Late st Contact Info) Description 07/03/2019 Transcribed Document [facility] [place] [address] [place] [address] ProviderMariela MD [address] [place] [address] Social History Tobacco Use Types Packs/Day Years Used Date Smoking Tobacco: Never Assessed Comments Unknown Sex and Gender Information Value Date Recorded Sex Assigned at Female 09/02/2021 8:57 PM CDT Legal Sex Female 6:58 PM CDT Gender Identity Female 09/02/2021 8:57 PM CDT Sexual Orientation Not on file documented as of this encounter Miscellaneous Notes * Cerner Conversion Note - Historical ProviderMD - 07/03/2019 9:00 PM CDT Patch Check Entered On: 07/04/2019 3:10 EDT Performed On: 07/03/2019 21:00 EDT by Bibi Gallagher RN Patch Check Patch Check Result : Yes Patch Check - Type of Patch : scopolamine (Transderm-Scop) Bibi Gallagher RN - 07/04/2019 3:10 EDT documented in this encounter Plan of Treatment Not on file documented as of this encounter Visit Diagnoses Not on filedocumented in this encounter
--- OUTSIDE RECORDS SUMMARY | 2024-08-09 13:29 | XMS_ITS | Encounter Summary ---
Author Organization [employer] Address [address] [place] [address] Care Team Providers Care Nsh Teacher Name Role Phone Unavailable Primary Care Provider Unavailabl e Encounter Details Date Type Department Care Team (Late st Contact Info) Description 06/29/2019 Transcribed Document [facility] [place] [facility] [place] [address] ProviderMariela MD [address] [place] [address] Social History Tobacco Use Types Packs/Day [...] Cerner Conversion Note - Mariela ProviderMD - 06/29/2019 5:02 PM CDT Patient: SOFIA BARLOW Age: 79 [...] no trouble w. urination. ???Slow progressive improvement ???Sitting on the chair ???No chest pain or trouble breathing ???No nausea or vomiting ???No trouble with urination ???Renal function back to normal Review of Systems Constitutional: No fever, [...] 0.9% 50 mL 2 Gram, IV Piggyback, [id number] cyanocobalamin 1,000 mcg tab 5,000 mcg 5 [...] fluticasone 0.05% nasal spray 100 mcg 2 [place], Nostrils Both, BID magnesium hydroxide 8% liq [...] Sleep apnea Physical Examination VS/Measurements Vital Measurements 06/29/2019 15:00 EDT Systolic Blood Pressure 114 mmHg Diastolic Blood Pressure 49 mmHg LOW Temperature Source Oral Temperature Mode Fahrenheit Temperature, Fahrenheit 98.4 Deg F Clinical Temperature, C 36.9 Deg C Heart Rate Monitored 83 bpm Respiratory Rate 20 Breaths/Min Oxygen Saturation 96 % General: Alert [...] Bun/Creatinine 20.0 Calcium Level 8.1 mg/dL LOW 06/28/2019 2:58 EDT Sodium Level 136 mmol/L Potassium Level 4.4 mmol/L Chloride Level 103 mmol/L Carbon Dioxide Level 28 mmol/L Anion Gap 9 Glucose Level 127 mg/dL HI Blood Urea Nitrogen 11 mg/dL Creatinine Level 0.60 mg/dL eGFR >60 mL/min/1.73m2 eGFR NonAfrican >60 mL/min/1.73m2 Bun/Creatinine 18.3 Calcium Level 8.1 mg/dL LOW . Condition: [...]
--- OUTSIDE RECORDS SUMMARY | 2024-08-09 13:29 | XMS_ITS | Encounter Summary ---
Author Organization [employer] Address [address] [place] [address] Care Team Providers Care It Quality Analyst Name Role Phone Unavailable Primary Care Provider Unavailabl e Encounter Details Date Type Department Care Team (Late st Contact Info) Description 06/20/2019 Transcribed Document [facility] [place] [facility] [place] [address] ProviderMariela MD [address] [place] [address] Social History Tobacco Use Types Packs/Day [...] Cerner Conversion Note - Mariela ProviderMD - 06/20/2019 6:22 PM CDT Patient: SOFIA BARLOW Age: 79 [...] DRIVER MD-INT Basic Information awake alert comfortable pain under control, no trouble w. urination. -Bl Cx & fluid aspirates Cx are positive for strept. Agalactiae ( gp.B ) -Rescheduled for Lt Knee debridment & revision in AM by -Leucocytosis Review of Systems Constitutional: No fever, No chills. Eye: No discharge, No blurring, No double vision, No visual disturbances. Ear/Nose/Mouth/Throat: No nasal congestion, No sore throat. Respiratory: No shortness of breath, No cough. Cardiovascular: No chest pain, No palpitations. Gastrointestinal: No nausea, No vomiting. Genitourinary: No change in urine stream. Musculoskeletal: Lt knee swelling & pain. Integumentary: Negative. Neurologic: Alert and oriented X4. Health Status Allergies: Allergies (10) Active Reaction amLODIPine None Documented valdecoxib None Documented Bextra Itching etodolac Itching Latex Itching Mobic Itching Naprosyn Itching penicillin Shortness of breath phentermine unknown reaction sulfa drugs Itching Current medications: Medications (42) Active Scheduled: (14) calcium 500 mg/vit D 200 int unit tab 1 Tab, Oral, BID cefTRIAXone + NaCl 0.9% 50 mL 2 Gram, IV Piggyback, [id number] cyanocobalamin 1,000 mcg tab 5,000 mcg 5 [...] Oral, Q4H fluticasone 0.05% nasal spray 2 [place], Nostrils Both, BID gabapentin 300 mg cap [...] Sleep apnea Physical Examination VS/Measurements Vital Measurements 06/20/2019 15:09 EDT Heart Rate Monitored 60 bpm Oxygen Saturation 90 % LOW Oxygen Therapy Mode Room air 06/20/2019 13:50 EDT Systolic Blood Pressure 136 mmHg Diastolic Blood Pressure 72 mmHg Mean Arterial Pressure (MAP)-BMDI 86 Temperature Source Oral Temperature Mode Fahrenheit Temperature, Fahrenheit 98.7 Deg F Clinical Temperature, C 37.1 Deg C Heart Rate Monitored 96 bpm Respiratory Rate 16 Breaths/Min Oxygen Saturation 100 % 06/20/2019 9:16 EDT Systolic Blood Pressure 146 mmHg HI Diastolic Blood Pressure 79 mmHg Mean Arterial Pressure (MAP)-BMDI 94 Temperature Source Oral Temperature Mode Fahrenheit Temperature, Fahrenheit 98.1 Deg F Clinical Temperature, C 36.7 Deg C Heart Rate Monitored 102 bpm HI Respiratory Rate 20 Breaths/Min Oxygen Saturation 98 % General: Alert [...] axilla, groin. Musculoskeletal: Normal strength, No swelling, Lt knee swelling & tender on palpation & motion. Integumentary: Warm, Intact, No rash. Neurologic: Alert, Oriented, No focal deficits. Psychiatric: Cooperative, Appropriate mood & affect. Review / Management Results review: All Results 06/20/2019 3:05 EDT Sodium Level 135 mmol/L LOW Potassium Level 4.6 mmol/L Chloride Level 102 mmol/L Carbon Dioxide Level 22 mmol/L Anion Gap 16 Glucose Level 102 mg/dL Blood Urea Nitrogen 26 mg/dL HI Creatinine Level 0.75 mg/dL eGFR >60 mL/min/1.73m2 eGFR NonAfrican >60 mL/min/1.73m2 Bun/Creatinine 34.7 HI Calcium Level 7.8 mg/dL LOW Protein Total 5.3 Gram/dL LOW Albumin Level 1.7 Gram/dL LOW Globulin 3.6 Gram/dL A/G Ratio 0.5 LOW Bilirubin Total 0.3 mg/dL Alk Phos 204 Units/Liter HI AST 27 Units/Liter ALT 21 Units/Liter Magnesium Level 2.4 mg/dL Phosphorus 4.3 mg/dL WBC 22.8 K/uL HI RBC 3.53 Million/uL LOW Hgb 10.9 Gram/dL LOW Hct 33.6 % LOW MCV 95.2 fL HI MCH 30.9 pg MCHC 32.4 Gram/dL Platelet Count 389 K/uL HI MPV 8.8 fL LOW RDW 13.1 % Neutrophil Percent Man 84 % HI Band Percent Man 3 % LOW ANC # 20 K/uL NA Lymph Percent Man 6 % LOW ALYC # 1 K/uL NA Hinds Percent Man 7 % HI RBC Morphology Normal Toxic Granulation 2+ Platelet Ct Estimate Adequate Slide Review Add Diff Man 06/19/2019 3:49 EDT Sodium Level 136 mmol/L [...] % LOW Lymph # 1.12 K/uL LOW Hinds % 6.6 % Hinds # 1.64 K/uL HI Eos % 0.1 % LOW Eos # 0.03 K/uL LOW Baso % 0.2 % Baso # 0.05 K/uL Sed Rate Auto 72 mm/Hr HI Slide Review No IG# 0 x10(3)/uL IG% 2 % HI Blood Culture See Result (In Progress) . Impression and Plan Diagnosis Chronic venous [...] function, blood glucose, and urine output. cont . on IV antibiotics per ID recommendations .Pain control .DVT prophylaxis .Fall risk precautions .Stress ulcer prophylaxis .NPO after MN for surgical intervention in AM.. documented in this encounter Plan of Treatment Not on file documented as of this encounter Visit Diagnoses Not on filedocumented in this encounter
--- OUTSIDE RECORDS SUMMARY | 2024-08-09 13:29 | XMS_ITS | Encounter Summary ---
Author Organization [employer] Address [address] [place] [address] Care Team Providers Care Closing Coordinator Name Role Phone Unavailable Primary Care Provider Unavailabl e Encounter Details Date Type Department Care Team (Late st Contact Info) Description 07/03/2019 Transcribed Document [facility] [place] [facility] [place] [address] ProviderMariela MD [address] [place] [...] Conversion Note - Historical ProviderMD - 07/03/2019 3:00 AM CDT Nutrition Assessment Entered On: 07/03/2019 11:20 EDT Performed On: 07/03/2019 11:20 EDT by Daniella Hunt Dietitian Nutrition Assessment Nutrition Assessment Reason : Follow Up Daniella Hunt Dietitian - 07/03/2019 11:20 EDT Current Nutrition Regimen Comment : 07/02: Moderate f/up. Pt reports decreased appetite d/t brace pt is currently in - pushes on her stomach. RD encouraged pt to eat smaller meals and snack in between. Pt reports she is drinking the ensure BID. RD took pt lunch order. Will continue to monitor. 06/26: Rec'd routine consult for new LTAC admit + BMI>40 (BMI=43.7). ? stg [address] nutrition assessment @ [facility] [place]. Previously rec'ing ensure BID; RD to continue [...] miralax, statin, florastor, coQ10, warfarin, pain prn, NaCl prn Labs: Cl 100, Glu 113, Alb 1.9, ALT 11, PLT 552, PAB 12.1 Skin: slight LE edema; L knee incision (closed) (immobilizer present), MASD gluteal cleft GI: LBM 5/, +BS Diet: regular + ensure BID Intakes: 80% x 10 meals Ht: 59 Wt: 216# (06/25) Current wt: no new wt (07/02) [facility] Wt hx: 91.8kg/202# (06/18) UBW: 200# per pt BMI: 43.7 IBW/%IBW: 97.5#/207% Daniella Hunt Dietitian - 07/03/2019 13:43 EDT Teaching/Learning Assessment Barriers To Learning : None evident Learning Style Preferences Patient : Demonstration, Verbal explanation Daniella Hunt Dietitian - 07/03/2019 13:43 EDT Nutrition Diagnoses Nutrient Intake : Increased nutrient needs Nutrient Intake Related to : skin integrity Nutrient Intake As Evidenced by : documented stg 2 PU coccyx @ [facility] not noted by [facility] Nutrient Intake Status : Resolved Increased Nutrient Needs Comment : protein Weight : Obese, Class III Weight Related to : lifestyle Weight As Evidenced by : BMI=43.7 Weight Status : Active Daniella Hunt Dietitian - 07/03/2019 13:43 EDT Nutrition Interventions Meals and Snacks : General/Healthful diet Nutrition Supplement Therapy : Commercial beverage Daniella Hunt Dietitian - 07/03/2019 13:43 EDT Monitoring/Evaluation Energy Intake : Total energy intake Food Intake : Amount of food Protein Intake : Total protein Weight Status : Weight Maintanence Gastrointestinal Function : Bowel Function Daniella Hunt Dietitian - 07/03/2019 13:43 EDT Nutrition Recommendations Dietitian Recommendations : 1. Continue current diet regimen. RD to provide Ensure BID to promote intakes. Goal: >50% po intake 2. Obtain wt 2x/wk. Goal: no unintended wt changes moderate risk Nutrition Care Level : Moderate Daniella Hunt Dietitian - 07/03/2019 13:43 EDT documented in this encounter Plan of Treatment Not on file documented as of this encounter Visit Diagnoses Not on filedocumented in this encounter
--- OUTSIDE RECORDS SUMMARY | 2024-08-09 13:29 | XMS_ITS | Encounter Summary ---
Author Organization [employer] Address [address] [place] [address] Care Team Providers Care Quality Assurance Supervisor Final Name Role Phone Unavailable Primary Care Provider Unavailabl e Encounter Details Date Type Department Care Team (Late st Contact Info) Description 06/21/2019 Transcribed Document [facility] [place] On license of [facility] [place] [address] ProviderMariela MD [place] [address] Social History Tobacco Use [...] Conversion Note - Historical ProviderMD - 06/21/2019 11:56 AM CDT Patient: SOFIA GILL Age: 79 years Sex: Female : 1940 Associated Diagnoses: None Author: ARA JONES MD-INF ID Progress Note CC: Left knee pain Current antimicrobial therapy: Rocephin IV Subjective: Patient still with left knee pain and with low-grade fevers surgery for left AKA later today hemodynamically stable ROS: Fevers and confused, no rash or diarrhea per RN. otherwise unobtainable Objective: Vitals Signs (last 24 hrs) Last Charted Minimum Maximum Temp H 99.9 (JUN 20 10:27) 98.1 (JUN 20 01:49) H 100.5 (JUN 20 05:41) Apical HR 89 (JUN 20 11:14) 89 (JUN 20 11:14) 89 (JUN 20 11:14) Mon HR 105 (JUN 20 05:46) 60 (JUN 19 15:09) 106 (JUN 20 05:41) Periph HR 104 (JUN 20 10:27) 104 (JUN 20 10:27) 104 (JUN 20 10:27) Resp Rate 14 (JUN 20 11:14) 14 (JUN 20 11:14) H 24 (JUN 20 03:55) SBP 113 (JUN 20 11:14) 113 (JUN 20 11:14) H 147 (JUN 19 18:30) DBP L 55 (JUN 20 11:14) L 55 (JUN 20 11:14) 74 (JUN 19 18:30) MAP 83 (JUN 20 05:44) 74 (JUN 20 01:49) 89 (JUN 19 21:28) SpO2 97 (JUN 20 11:14) L 90 (JUN 19 15:09) 100 (JUN 19 13:50) Physical Examination: Gen: Alert, nervous about surgery [...] right knee. SKIN: No eruptions, lesions, or rashes, PICC in place NEURO: No focal deficits moves all 4 extremities Labs:Labs (Last four charted values) WBC H 22.8 (JUN 19) H 24.7 (JUN 18) H 21.4 (JUN 17) H 21.1 (JUN 16) HB L 10.9 (JUN 19) L 9.1 (JUN 18) L 10.3 (JUN 17) L 10.0 (JUN 16) HCT L 33.6 (JUN 19) L 28.0 (JUN 18) L 32.3 (JUN 17) L 31.3 (JUN 16) Plt H 389 (JUN 19) 281 (JUN 18) 266 (JUN 17) 265 (JUN 16) Na L 133 (JUN 20) L 135 (JUN 19) 136 (JUN 18) L 130 (JUN 17) K 4.4 (JUN 20) 4.8 (JUN 20) 4.6 (JUN 19) 4.6 (JUN 18) Cl L 101 (JUN 20) 102 (JUN 19) 103 (JUN 18) L 97 (JUN 17) CO2 25 (JUN 20) 22 (JUN 19) 22 (JUN 18) 24 (JUN 17) BUN H 23 (JUN 20) H 26 (JUN 19) H 31 (JUN 18) H 50 (JUN 17) Cr 0.66 (JUN 20) 0.75 (JUN 19) 0.93 (JUN 18) H 1.51 (JUN 17) Glu R 93 (JUN 20) 102 (JUN 19) L 73 (JUN 18) 87 (JUN 17) Ca L 7.9 (JUN 20) L 7.8 (JUN 19) L 7.9 (JUN 18) L 8.1 (JUN 17) Lactic 1.1 (JUN 16) AST 27 (JUN 19) 26 (JUN 18) H 38 (JUN 16) ALT 21 (JUN 19) 21 (JUN 18) 29 (JUN 16) ALK P H 204 (JUN 19) H 188 (JUN 18) 133 (JUN 16) T Bili 0.3 (JUN 19) 0.3 (JUN 18) 0.5 (JUN 16) PTN L 5.3 (JUN 19) L 4.4 (JUN 18) L 5.2 (JUN 16) ALB L 1.7 (JUN 19) L 1.5 (JUN 18) L 2.0 (JUN 16) Micro: [facility]: 06/15 [facility] Blood cultures positive for group B strep and 2/2 bottles SJE: 06/16 fluid aspiration of left knee shows 118,150 white blood cells, GPC 06/16 repeat blood cultures with Group B Strep 06/16 MRSA surveillance culture and pro/pending 06/16 Urine culture in process/pending Rad: Radiology Results (Last 48 hours) [id number] -- 06/16/2019 21:08 CR Knee 1 or 2 Vws LT (06/19/2019 16:27) Result: LEFT KNEE SERIESHISTORY: Preoperative.COMPARISON: November 24, 2016FINDINGS: A two view exam demonstrates no acute fracture ordislocation. The patient is status post total left knee arthroplasty.There is anterior soft tissue swelling. Multiple soft tissuecalcifications are present. There are questionable air bubbles in theanterior soft tissues.IMPRESSION: Postoperative changes of total knee arthroplasty.Anterior soft tissue swelling with questionable air bubbles as above. Images reviewed, interpreted, and dictated by Dr. Jordan Richardson.Transcribed by Jl Allison (R).I have personally viewed, interpreted and dictated the examination. Ihave read and agree with the above final transcribed report. CR Chest 1 Vw Portable (06/21/2019 04:36) [...] personally viewed, interpreted and dictated the examination. Ihave read and agree with the above final [...] aggressive intervention continue antibiotics with ceftriaxone and clindamycin. Still with low-grade fevers leukocytosis on ceftriaxone and clindamycin will discontinue clindamycin today plans for surgery to today still with leukocytosis and fevers RECOMMENDATIONS/PLANS: - Repeat blood cultures negative PICC placed - continue ceftriaxone 2 gm daily - likely to need a prolonged course of IV antibiotics - orthopedic surgery following. AKA planned for today documented in this encounter Plan of Treatment Not on file documented as of this encounter Visit Diagnoses Not on filedocumented in this encounter
--- OUTSIDE RECORDS SUMMARY | 2024-08-09 13:29 | XMS_ITS | Encounter Summary ---
Author Organization [employer] Address [address] [place] [address] Care Team Providers Care Electric Meter Repairer Helper Name Role Phone Unavailable Primary Care Provider Unavailabl e Encounter Details Date Type Department Care Team (Late st Contact Info) Description 06/20/2019 Transcribed Document [facility] [place] [facility] [place] [address] ProviderMariela MD [address] [place] [address] Social History Tobacco Use Types Packs/Day [...] Conversion Note - Historical ProviderMD - 06/20/2019 11:49 AM CDT On Going Discharge Planning Entered On: 06/20/2019 11:50 EDT Performed On: 06/20/2019 11:49 EDT by Halima Tripathi, EDDIE-FOR[employer] PRODUCTS GATHERERfitter armament Progress Note Discharge Arrangements : Patient Post-Acute [...] you Attend Multidisciplinary Rounds? : No Halima Tripathi, RN-[employer] GATHERER - 06/20/2019 11:49 EDT Narrative Progress Note Narrative Progress Note : No MDR this AM with provider. Patient with low-grade fever this AM and throughout the night. COTY was rescheduled for 06/20 for this reason. CM will continue to follow. Historical Progress Note : Patient becoming more agitated and confused, refusing to wear oxygen. Patient now on CPAP, WBC increased, BC x2 positive for group b Strep. Dr Saenz to perform AKA tomorrow morning. Will continue to follow..............sds MIKE FRIEDMAN RN-Endoscopy Nurse - 06/19/19 11:35:19 Halima Tripathi RN-[employer] GATHERER - 06/20/2019 11:49 EDT documented in this encounter Plan of Treatment Not on file documented as of this encounter Visit Diagnoses Not on filedocumented in this encounter
--- OUTSIDE RECORDS SUMMARY | 2024-08-09 13:29 | XMS_ITS | Encounter Summary ---
Author Organization [employer] Address [address] [place] [address] Care Team Providers Care Ms Sql Developer Name Role Phone Unavailable Primary Care Provider Unavailabl e Encounter Details Date Type Department Care Team (Late st Contact Info) Description 06/19/2019 Transcribed Document [facility] [place] Family Medicine [address] [place] [address] ProviderMariela MD [address] [place] [address] Social History Tobacco Use Types [...] Conversion Note - Historical ProviderMD - 06/19/2019 8:01 AM CDT UM Authorization Entered On: 06/19/2019 8:01 EDT Performed On: 06/19/2019 8:01 EDT by TIESHA AQUINO RN-Utilization Review Primary Insurance Authorization Authorization and Policy Numbers : Insurance 1 Health Plan: [facility] MEDICARE ADVANTAGE Policy Number: [id number] Authorization Number: Insurance Primary Name : [facility] MEDICARE ADVANTAGE Policy Number: [id number] Authorization Status-Primary : Pending clinicals Reference Number-Primary : [id number] Authorized Service Begin Date-Primary : 06/16/2019 EDT Historical Authorization Comments-Primary : Comment 1: Attempted auth on [facility] portal, message that notification cannot be completed online, Call number on back of card (Michelle Jimenez Rn-Utilization Review 06/17/2019 10:02) TIESHA AQUINO RN-Utilization Review - 06/19/2019 8:01 EDT documented in this encounter Plan of Treatment Not on file documented as of this encounter Visit Diagnoses Not on filedocumented in this encounter
--- OUTSIDE RECORDS SUMMARY | 2024-08-09 13:29 | XMS_ITS | Encounter Summary ---
Author Organization [employer] Address [address] [place] [address] Care Team Providers Care Synthetic Filament Extruder Name Role Phone Unavailable Primary Care Provider Unavailabl e Encounter Details Date Type Department Care Team (Late st Contact Info) Description 07/01/2019 Transcribed Document [facility] [place] Family Medicine [address] [place] [address] ProviderMariela MD [address] [place] [address] Social History Tobacco Use Types Packs/Day Years [...] Conversion Note - Historical ProviderMD - 07/01/2019 7:20 PM CDT Pain Assessment Entered On: 07/10/2019 17:12 EDT Performed On: 07/10/2019 15:57 EDT by Marisela Rangel RN Intervention Information: acetaminophen-HYDROcodone Performed by Marisela Rangel RN on 07/10/2019 14:57:00 EDT acetaminophen-HYDROcodone,1.5Tab Oral,Pain Pain Assessment Pain Assessment : Follow-up assessment Pain Scale Used : 0-10 Scale Pain Improved by Intervention : Yes Marisela Rangel RN - 07/10/2019 17:12 EDT Electronically signed by Chantal [facility] Conversion Oil Field Worker Cerner at 06/16/2022 8:30 PM CDT documented in this encounter Plan of Treatment Not on file documented as of this encounter Visit Diagnoses Not on filedocumented in this encounter
--- OUTSIDE RECORDS SUMMARY | 2024-08-09 13:29 | XMS_ITS | Encounter Summary ---
Author Organization [employer] Address [address] [place] [address] Care Team Providers Care Machine Sorter Name Role Phone Unavailable Primary Care Provider Unavailabl e Encounter Details Date Type Department Care Team (Late st Contact Info) Description 06/21/2019 Transcribed Document [facility] [place] [address] [place] [address] ProviderMariela MD [address] [place] [address] Social History Tobacco Use [...] Conversion Note - Historical ProviderMD - 06/21/2019 7:25 PM CDT Evaluation, Occupational Therapy Entered On: 06/23/2019 11:43 EDT Performed On: 06/23/2019 9:30 EDT by FELTON RUSH OTR/Bartolo General Information, OT Visit Type, OT : Initial evaluation Patient Orders : Order Date Order Ordering 06/20/2019 13:12 Occupational Therapy Evaluation and Treatme Ordered By: DONNA DRIVER MD-INT 06/21/2019 19:25 OT Evaluation and Treatment Ordered By: SOLOMON MCCRACKEN PA-C 06/21/2019 19:25 OT Treatment Instructions Ordered By: SOLOMON MCCRACKEN PA-C Active Diagnoses : 06/19/2019 12:00 Encephalopathy, unspecified [...] (peripheral) Therapy Diagnosis, OT : Reduced mobility Onset of Problem, OT : 06/16/2019 EDT Admission Date : 06/16/2019 21:08 Personal Devices : Personal Devices Glasses Assistive Devices : Assistive Devices No Devices Recorded Precautions in Place : Fall prevention measures, Fall prevention measures, high risk Isolation Maintained : Contact General Information Comment, OT : WBAT; must have hip spica/knee brace on at all times FELTON RUSH OTR/L - 06/23/2019 11:27 EDT General Status Patient Received Status : Supine in bed, Bed alarm activated Treatment Start Time : 06/23/2019 9:30 EDT Patient Left Status : Up in chair, Chair alarm activated, RN/PCT informed, All needs met and within reach RN/PCT Informed Comment : EDDIE ok'ed to see Treatment End Time : 06/23/2019 10:06 EDT Treatment Time : 36 Minute(s) Actual Treatment Time : 36 Minute(s) FELTON RUSH OTR/L - 06/23/2019 11:27 EDT History and Environment, OT Living Situation, Therapy : Home Patient Lives With : Alone Persons Assisting Patient at Home : Alone Professional Skilled Services : None Persons Providing Information : Patient Home Equipment, Therapy : Cane, Shower Equipment, Walker, Wheelchair Cane : Cane, single point Shower Equipment : Shower Chair, with back Walker : Walker, front wheel Wheelchair : Wheelchair, standard Home Setup : Two story Stairs : Yes Stair Location(s) : Inside Inside Stairs, Number of Steps : 14 Stairs Inside Comment : Pt reports she can stay on main floor Ramp : Yes FELTON RUSH OTR/L 06/23/2019 11:27 EDT Prior LOF Bathing, OT : Independent Prior LOF Bed Mobility : Independent Prior LOF Upper Body Dressing, OT : Independent Prior LOF Lower Body Dressing, OT : Independent Prior LOF Toileting : Independent Prior LOF Transfer : Independent Prior LOF Grooming, OT : Independent FELTON RUSH OTR/Bartolo 06/23/2019 11:27 EDT Prior LOF Assist with ADL Comment : Pt reports being I with ADLs prior to this admission; this is somewhat questionable FELTON RUSH OTR/Bartolo 06/23/2019 11:27 EDT Upper Extremity Upper Extremity Dominance : Right Right UE Active ROM : WFL Right UE Strength : WFL Left UE Active ROM : WFL Left UE Strength : WFL Right UE Strength Comment : Grossly 4/5 Left UE Strength Comment : Grossly 4/5 Hand Wolf Hunter Test : Min decreased bilaterally Fine Motor Coordination Impaired : No FELTON RUSH OTR/Bartolo [place] 06/23/2019 11:27 EDT Self Care/Home Management, OT Lower Body Dressing Assist Level, OT : Assist, maximal Lower Body Dressing Comment, OT : Donning socks FELTON RUSH OTR/Bartolo 06/23/2019 11:27 EDT Functional Mobility Mobility Grid Supine to Sit : Rehab Moderate assistance Sit to Stand : Rehab Moderate assistance (Comment: x 2 [FELTON RUSH OTR/Bartolo 06/23/2019 11:27 EDT] ) Bed to Chair : Rehab Maximal assistance (Comment: x 2 [FELTON RUSH OTR/L - 06/23/2019 11:27 EDT] ) Stand to Sit : Rehab Maximal assistance (Comment: x 2 [FELTON RUSH OTR/L 06/23/2019 11:27 EDT] ) FELTON RUSH OTR/L 06/23/2019 11:27 EDT Functional MobilityComment : Hip spica/knee brace on throughout eval FELTON RUSH MARY/L 06/23/2019 11:27 EDT Activity Tolerance, OT Activity Comment : F act. tolerance FELTON RUSH MARY/L - 06/23/2019 11:27 EDT Neurological/Sensory Light Touch Response : Intact FELTON RUSHMARY/L 06/23/2019 11:27 EDT Cognition Assessment, OT Orientation : Oriented x 4 Cognition Assessment, OT : Intact FELTON RUSH MARY/L 06/23/2019 11:27 EDT Education OT Occupational Therapy Education Grid Activity of Daily Living Training : Verbalizes understanding Functional Mobility Training : Verbalizes understanding, Returns demonstration Home Safety : Verbalizes understanding Precaution/Contraindication : Verbalizes understanding Role of Occupational Therapy : Verbalizes understanding FELTON RUSHMARY/L 06/23/2019 11:27 EDT Teaching/Learning Assessment Barriers To Learning : Acuity of Illness Individuals Taught : Patient Readiness to Learn : Cooperative Highest Level of Education : Post graduate degree(s) Baseline Knowledge of Topic : Limited Readiness to Learn : Demonstration, Explanation Learning Style Preferences Patient : None FELTON RUSH MARY/Bartolo 06/23/2019 11:27 EDT Indication Assessment, OT Occupational Therapy Indicated : Yes Problem List, OT : Impaired, bed mobility, Impaired, activities daily living, Impaired, coordination/proprioception, Impaired, endurance tolerance, Impaired functional mobility, Impaired, joint mobility, Impaired, muscle tone, Impaired, standing balance, Impaired, strength, Impaired, transfers, Pain limiting function Potential Barriers, OT : Acuity of illness, Desire/Motivation, Fatigue, Knowledge/education, Pain, Patient compliance Rehabilitation Potential, OT : Fair FELTON RUSH MARY/Bartolo 06/23/2019 11:27 EDT Plan of Care, OT OT Tx Plan/Goals Established w Patient : Yes OT Frequency Rehab : Other: 3-5x/wk Other OT Treatment Provided This Date : Self care: pt instruction provided re: ADL performance, safety, home safety, precautions Eval=8 min Self care=28 min OT Duration Rehab : Fourteen days OT Treatments Planned : Activities of daily living, Caregiver training, Functional mobility training, Neuromuscular reeducation, Safety education, Therapeutic activities, Therapeutic exercises FELTON RUSH OTR/Bartolo - 06/23/2019 11:27 EDT Retirement Goals, OT Other LTG Grid Goal #1 Goal #2 Goal : Perform functional supine to sit transfer with min A x 2 to ease caregiver burden Perform ADL transfer with min A Date to Meet : 07/07/2019 EDT 07/07/2019 EDT Goal Status : Initial goal Initial goal FELTON RUSH OTR/Bartolo - 06/23/2019 11:27 EDT FELTON RUSH OTR/Bartolo - 06/23/2019 11:27 EDT Pain Assessment Pain Scaled Used : 0-10 Pain scale Pain Score Pre-Intervention : 8 Location : Foot, left Pain Comment : Pt showed no outward signs of such high reported pain level; Nsg aware FELTON RUSH OTR/Bartolo - 06/23/2019 11:27 EDT Image 1 - Images currently included in the form version of this document have not been included in the text rendition version of the form. [place] OT Charges OT Selfcare/Hm Mgmt Ea 15 Min : 2 OT Eval Moderate Complexity : 1 FELTON RUSH OTR/Bartolo - 06/23/2019 11:27 EDT documented in this encounter Plan of Treatment Not on file documented as of this encounter Visit Diagnoses Not on filedocumented in this encounter
--- OUTSIDE RECORDS SUMMARY | 2024-08-09 13:29 | XMS_ITS | Encounter Summary ---
Author Organization [employer] Address [address] [place] [address] Care Team Providers Care Volunteer Assistant Name Role Phone Unavailable Primary Care Provider Unavailabl e Encounter Details Date Type Department Care Team (Late st Contact Info) Description 07/03/2019 Transcribed Document [facility] [place] Medicine [facility] [place] [address] ProviderMariela MD [address] [place] [address] Social History Tobacco Use Types Packs/Day [...] Cerner Conversion Note - Mariela ProviderMD - 07/03/2019 6:20 PM CDT Patient: SOFIA BARLOW Age: 79 [...] pain under control, no trouble w. urination. Decreased H&H E???We'll hold transfusion of packed RBCs till hemoglobin is 7 or less ???Has low-grade fever ???Prealbumin 12.1 ???Albumin levelis 1.9 Review of Systems Constitutional: No fever, No [...] 0.9% 50 mL 2 Gram, IV Piggyback, [id number] cyanocobalamin 1,000 mcg tab 5,000 mcg 5 [...] fluticasone 0.05% nasal spray 100 mcg 2 Rollins, Nostrils Both, BID magnesium hydroxide 8% liq [...] Sleep apnea Physical Examination VS/Measurements Vital Measurements 07/03/2019 15:00 EDT Systolic Blood Pressure 131 mmHg Diastolic Blood Pressure 49 mmHg LOW Temperature Source Oral Temperature Mode Fahrenheit Temperature, Fahrenheit 99.4 Deg F Clinical Temperature, C 37.4 Deg C Heart Rate Monitored 94 bpm Respiratory Rate 20 Breaths/Min Oxygen Saturation 97 % General: Alert [...] Review / Management Results review: All Results 07/03/2019 4:09 EDT Sodium Level 136 mmol/L [...] % 22.6 % Lymph # 1.63 x10(3)/uL [place] % 13.7 % HI [place] # 0.99 K/uL Eos % 2.9 % Eos # 0.21 x10(3)/uL Baso % 0.4 % Baso # 0.03 x10(3)/uL Sed Rate Auto 62 mm/Hr HI Slide Review No IG# 0.03 x10(3)/uL IG% 0.40 % Prealbumin 12.1 mg/dL LOW 07/02/2019 5:14 EDT PT 11.4 Second(s) INR 1.1 . Impression and Plan Diagnosis Chronic venous [...] as recommended by infectious disease. Pain control. D Protein shakes 3 times a day with meals. May consider albumin infusion. documented in this encounter Plan of Treatment Not on file documented as of this encounter Visit Diagnoses Not on filedocumented in this encounter
--- OUTSIDE RECORDS SUMMARY | 2024-08-09 13:29 | XMS_ITS | Encounter Summary ---
Author Organization [employer] Address [address] [place] [address] Care Team Providers Care Power Bender Operator Name Role Phone Unavailable Primary Care Provider Unavailabl e Encounter Details Date Type Department Care Team (Late st Contact Info) Description 06/19/2019 Transcribed Document [facility] [place] [address] [place] [address] ProviderMariela MD [address] [place] [address] Social History Tobacco Use Types [...] Conversion Note - Historical ProviderMD - 06/19/2019 3:52 PM CDT UM Authorization Entered On: 06/19/2019 15:52 EDT Performed On: 06/19/2019 15:52 EDT by TIESHA AQUINO RN-Utilization Review Primary Insurance Authorization Authorization and Policy Numbers : Insurance 1 Health Plan: [facility] MEDICARE ADVANTAGE Policy Number: [id number] Authorization Number: Insurance Primary Name : [employer] MEDICARE ADVANTAGE Policy Number: [id number] Authorization Status-Primary : Pending clinicals Reference Number-Primary : [id number] Authorized Service Begin Date-Primary : 06/16/2019 EDT Authorization Comments-Primary : [facility] auth pending per website Historical Authorization Comments-Primary : Comment 1: Clinicals faxed via Min (Michelle Jimenez Rn-Utilization Review 06/19/2019 09:50) Comment 2: Attempted auth on [facility] portal, message that notification cannot be completed online, Call number on back of card (Michelle Jimenez, Laxmi-Utilization Review 06/17/2019 10:02) TIESHA AQUINO RN-Utilization Review - 06/19/2019 15:52 EDT Electronically signed by Chantal [facility] Conversion Porter Marina Cerner at 06/16/2022 8:20 PM CDT documented in this encounter Plan of Treatment Not on file documented as of this encounter Visit Diagnoses Not on filedocumented in this encounter
--- OUTSIDE RECORDS SUMMARY | 2024-08-09 13:29 | XMS_ITS | Encounter Summary ---
Author Organization [employer] Address [address] [place] [address] Care Team Providers Care Crop Grain Or Livestock Farmer Name Role Phone Unavailable Primary Care Provider Unavailabl e Encounter Details Date Type Department Care Team (Late st Contact Info) Description 07/14/2019 Transcribed Document [facility] [place] [facility] [place] [address] ProviderMariela MD [facility] [place] [address] Social History Tobacco Use Types [...] Conversion Note - Historical ProviderMD - 07/14/2019 9:00 AM CDT Pain Assessment Entered On: 07/14/2019 10:43 EDT Performed On: 07/14/2019 10:14 EDT by Mariesla Rangel RN Intervention Information: indomethacin Performed by Marisela Rangel RN on 07/14/2019 09:14:00 EDT indomethacin,25mg Oral Pain Assessment Pain Assessment : Follow-up assessment Pain Scale Used : 0-10 Scale Pain Improved by Intervention : Yes Marisela Rangel RN - 07/14/2019 10:42 EDT Pain Scale Intensity : 3 Marisela Rangel RN - 07/14/2019 10:42 EDT Image 4 - Images currently included in the form version of this document have not been included in the text rendition version of the form. documented in this encounter Plan of Treatment Not on file documented as of this encounter Visit Diagnoses Not on filedocumented in this encounter
--- OUTSIDE RECORDS SUMMARY | 2024-08-09 13:29 | XMS_ITS | Encounter Summary ---
Author Organization [employer] Address [address] [place] [address] Care Team Providers Care Car Starter Name Role Phone Unavailable Primary Care Provider Unavailabl e Encounter Details Date Type Department Care Team (Late st Contact Info) Description 08/23/2018 Transcribed Document [facility] [place] [facility] [place] [address] ProviderMariela MD [facility] [place] [address] Social History Tobacco Use Types [...] Note - Historical ProviderMD - 08/23/2018 9:00 PM CDT Pain Assessment Entered On: 08/23/2018 23:09 EDT Performed On: 08/23/2018 21:33 EDT by Nishi Osuna RN Intervention Information: acetaminophen Performed by Nishi Osuna RN on 08/23/2018 20:33:00 EDT acetaminophen,1000mg Oral Pain Assessment Pain Assessment : Follow-up assessment Pain Scale Goal : 3 Pain Scale Used : 0-10 Scale Pain Intervention, Drug : Medicated Pain Improved by Intervention : Yes Nishi Osuna RN - 08/23/2018 23:09 EDT Pain Scale Intensity : 0 Nishi Osuna RN - 08/23/2018 23:09 EDT Image 4 - Images currently included in the form version of this document have not been included in the text rendition version of the form. documented in this encounter Plan of Treatment Not on file documented as of this encounter Visit Diagnoses Not on filedocumented in this encounter
--- OUTSIDE RECORDS SUMMARY | 2024-08-09 13:29 | XMS_ITS | Encounter Summary ---
Author Organization [employer] Address [address] [place] [address] Care Team Providers Care Branch Service Representative Name Role Phone Unavailable Primary Care Provider Unavailabl e Encounter Details Date Type Department Care Team (Late st Contact Info) Description 07/14/2019 Transcribed Document [facility] [place] Family Medicine [address] [place] [address] ProviderMariela MD [address] [place] [address] Social History Tobacco Use Types Packs/Day Years [...] Note - Historical ProviderMD - 07/14/2019 9:00 PM CDT Pain Assessment Entered On: 07/15/2019 2:32 EDT Performed On: 07/14/2019 22:05 EDT by Georgina Olivo RN Intervention Information: indomethacin Performed by Georgina Olivo RN on 07/14/2019 21:05:00 EDT indomethacin,25mg Oral Pain Assessment Pain Assessment : Follow-up assessment Pain Improved by Intervention : Yes Georgina Olivo RN - 07/15/2019 2:32 EDT documented in this encounter Plan of Treatment Not on file documented as of this encounter Visit Diagnoses Not on filedocumented in this encounter
--- OUTSIDE RECORDS SUMMARY | 2024-08-09 13:29 | XMS_ITS | Encounter Summary ---
Author Organization [employer] Address [address] [place] [address] Care Team Providers Care End Finder Twisting Department Name Role Phone Unavailable Primary Care Provider Unavailabl e Encounter Details Date Type Department Care Team (Late st Contact Info) Description 07/01/2019 Transcribed Document [facility] [place] Family Medicine [address] [place] [address] ProviderMariela MD [address] [place], [place] [id number] Social History Tobacco Use Types Packs/Day Years [...] Conversion Note - Historical ProviderMD - 07/01/2019 5:00 AM CDT Chart Check - Review Order Profile Entered On: 07/01/2019 3:09 EDT Performed On: 07/01/2019 5:00 EDT by NUSRAT TODD RN Chart Check Powerplans Initiated/Discontinued as Appropriate : Yes All Active Orders Reviewed : Yes NUSRAT TODD RN - 07/01/2019 3:09 EDT documented in this encounter Plan of Treatment Not on file documented as of this encounter Visit Diagnoses Not on filedocumented in this encounter
--- OUTSIDE RECORDS SUMMARY | 2024-08-09 13:29 | XMS_ITS | Encounter Summary ---
Author Organization [employer] Address [address] [place] [address] Care Team Providers Care Apiculture Teacher Name Role Phone Unavailable Primary Care Provider Unavailabl e Encounter Details Date Type Department Care Team (Late st Contact Info) Description 07/14/2019 Transcribed Document [facility] [place] Family [place] [address] ProviderMariela [place] [address] Social History Tobacco Use Types [...] Cerner Conversion Note - Mariela ProviderMD - 07/14/2019 6:01 PM CDT Patient: SOFIA BARLOW Age: 79 [...] 0.9% 100 mL 2 Gram, IV Piggyback, [id number] cyanocobalamin 1,000 mcg tab 5,000 mcg 5 [...] Oral, Q4H fluticasone 0.05% nasal spray 2 [place], Nostrils Both, BID magnesium hydroxide 8% liq [...] Sleep apnea Physical Examination VS/Measurements Vital Measurements 07/14/2019 15:00 EDT Systolic Blood Pressure 119 mmHg Diastolic Blood Pressure 44 mmHg LOW Mean Arterial Pressure (MAP)-BMDI 61 Temperature Source Oral Temperature Mode Fahrenheit Temperature, Fahrenheit 98.5 Deg F Clinical Temperature, C 36.9 Deg C Heart Rate Monitored 89 bpm Respiratory Rate 18 Breaths/Min Oxygen Saturation 96 % General: Alert [...] Review / Management Results review: All Results 07/13/2019 6:13 EDT Sodium Level 138 mmol/L Potassium Level 4.9 mmol/L Chloride Level 103 mmol/L Carbon Dioxide Level 30 mmol/L Anion Gap 10 Glucose Level 104 mg/dL Blood Urea Nitrogen 38 mg/dL HI Creatinine Level 0.70 mg/dL eGFR >60 mL/min/1.73m2 eGFR NonAfrican >60 mL/min/1.73m2 Bun/Creatinine 54.3 HI Calcium Level 9.0 mg/dL Protein Total 7.2 Gram/dL Albumin Level 2.3 Gram/dL LOW Globulin 4.9 Gram/dL HI A/G Ratio 0.5 LOW Bilirubin Total 0.4 mg/dL Alk Phos 49 Units/Liter AST 16 Units/Liter ALT 11 Units/Liter LOW WBC 7.1 K/uL RBC 2.57 Million/uL LOW Hgb 7.7 g/dL LOW Hct 24.9 % LOW MCV 96.9 fL HI MCH 30.0 pg MCHC 30.9 Gram/dL LOW Platelet Count 422 K/uL HI MPV 8.8 fL LOW RDW 12.9 % Neut % 59.1 % Neut # 4.20 K/uL Lymph % 21.9 % Lymph # 1.56 x10(3)/uL [place] % 12.0 % HI [place] # 0.85 K/uL Eos % 6.2 % Eos # 0.44 x10(3)/uL Baso % 0.4 % Baso # 0.03 x10(3)/uL Slide Review No IG# 0.03 x10(3)/uL IG% 0.40 % PT 11.5 Second(s) INR 1.1 . Condition: Stable. Impression [...] recommended by infectious disease. Pain control. DVT prophylaxis.. Fall risk precautions. Sleep apnea precautions. Stress ulcer prophylaxis. Anticipate DC to group home on Wednesday if stable. Electronically signed by Maureen Cornejo Conversion Email Production Consultant Cerner at 06/16/2022 8:22 PM CDT documented in this encounter Plan of Treatment Not on file documented as of this encounter Visit Diagnoses Not on filedocumented in this encounter
--- OUTSIDE RECORDS SUMMARY | 2024-08-09 13:29 | XMS_ITS | Encounter Summary ---
Author Organization [employer] Address [address] [place] [address] Care Team Providers Care Medical Librarian Name Role Phone Unavailable Primary Care Provider Unavailabl e Encounter Details Date Type Department Care Team (Late st Contact Info) Description 06/19/2019 Transcribed Document [facility] [place] Family Medicine [address] [place] [address] ProviderMariela MD [address] [place] [address] Social History Tobacco Use [...] Conversion Note - Historical ProviderMD - 06/19/2019 2:00 PM CDT Attempt to Treat, PT Entered On: 06/19/2019 14:00 EDT Performed On: 06/19/2019 14:00 EDT by KACIE MAJOR, PT Attempt to Treat Inability to Treat Comment : Pt is scheduled for an AKA on 06/19. PT will hold until after sx. KACIE MAJOR, PT - 06/19/2019 14:00 EDT Electronically signed by Maureen Cornejo Conversion System Developer Associate Manager Cerner at 06/16/2022 8:10 PM CDT documented in this encounter Plan of Treatment Not on file documented as of this encounter Visit Diagnoses Not on filedocumented in this encounter
--- OUTSIDE RECORDS SUMMARY | 2024-08-09 13:29 | XMS_ITS | Encounter Summary ---
Author Organization [employer] Address [address] [place] [address] Care Team Providers Care Emr Analyst Name Role Phone Unavailable Primary Care Provider Unavailabl e Encounter Details Date Type Department Care Team (Late st Contact Info) Description 07/14/2019 Transcribed Document [facility] [place] Family Medicine [address] [place] [address] ProviderMariela MD [address] [place] [address] Social History Tobacco Use Types Packs/Day Years [...] Historical ProviderMD - 07/14/2019 9:00 PM CDT Patch Check Entered On: 07/15/2019 2:33 EDT Performed On: 07/14/2019 21:00 EDT by Georgina Olivo RN Patch Check Patch Check Result : No Patch Check - Type of Patch : No Patch Found Georgina Olivo RN - 07/15/2019 2:33 EDT documented in this encounter Plan of Treatment Not on file documented as of this encounter Visit Diagnoses Not on filedocumented in this encounter
--- OUTSIDE RECORDS SUMMARY | 2024-08-09 13:29 | XMS_ITS | Encounter Summary ---
Author Organization [employer] Address [address] [place] [address] Care Team Providers Care Buffer Inflated Pad Name Role Phone Unavailable Primary Care Provider Unavailabl e Encounter Details Date Type Department Care Team (Late st Contact Info) Description 06/30/2019 Transcribed Document [facility] [place] Family Medicine [facility] [place] [address] ProviderMariela MD [facility] [place] [address] Social History Tobacco Use Types [...] Conversion Note - Historical ProviderMD - 06/30/2019 10:40 AM CDT Pain Assessment Entered On: 07/01/2019 10:16 EDT Performed On: 07/01/2019 9:59 EDT by Marisela Rangel RN Intervention Information: acetaminophen-HYDROcodone Performed by Marisela Rangel RN on 07/01/2019 08:59:00 EDT acetaminophen-HYDROcodone,1Tab Oral,Pain Pain Assessment Pain Assessment : Follow-up assessment Pain Scale Used : 0-10 Scale Pain Improved by Intervention : Yes Marisela Rangel RN - 07/01/2019 10:15 EDT Pain Scale Intensity : 3 Marisela Rangel RN - 07/01/2019 10:15 EDT Image 4 - Images currently included in the form version of this document have not been included in the text rendition version of the form. documented in this encounter Plan of Treatment Not on file documented as of this encounter Visit Diagnoses Not on filedocumented in this encounter
--- OUTSIDE RECORDS SUMMARY | 2024-08-09 13:29 | XMS_ITS | Encounter Summary ---
Author Organization [employer] Address [address] [place] [address] Care Team Providers Care Kiln Puller Name Role Phone Unavailable Primary Care Provider Unavailabl e Encounter Details Date Type Department Care Team (Late st Contact Info) Description 06/20/2019 Transcribed Document [facility] [place] Family Medicine [address] [place] [address] ProviderMariela MD [address] [place], [place] [id number] Social History Tobacco Use Types Packs/Day Years [...] Conversion Note - Historical ProviderMD - 06/20/2019 10:45 AM CDT Attempt to Treat, PT Entered On: 06/20/2019 10:45 EDT Performed On: 06/20/2019 10:45 EDT by MUKUL MARTINEZ PT Attempt to Treat Unable to Treat Due To : Patient on hold Inability to Treat Comment : Having AKA today. Will hold PT eval until after surgery. MUKUL MARTINEZ PT - 06/20/2019 10:45 EDT Electronically signed by Maureen Cornejo Conversion Customer Response Representative [employer] at 06/16/2022 8:04 PM CDT documented in this encounter Plan of Treatment Not on file documented as of this encounter Visit Diagnoses Not on filedocumented in this encounter
--- OUTSIDE RECORDS SUMMARY | 2024-08-09 13:29 | XMS_ITS | Encounter Summary ---
Author Organization [employer] Address [address] [place] [address] Care Team Providers Care Electrocardiograph Technician Name Role Phone Unavailable Primary Care Provider Unavailabl e Encounter Details Date Type Department Care Team (Late st Contact Info) Description 06/20/[address] [facility] [place] Family Medicine [address] [place] [address] ProviderMariela MD [address] [place] [address] Social History Tobacco Use Types Packs/Day Years [...] Conversion Note - Historical ProviderMD - 06/20/2019 1:46 PM CDT Attempt to Treat, OT Entered On: 06/20/2019 13:47 EDT Performed On: 06/20/2019 13:46 EDT by FELTON RUSH OTR/Bartolo Attempt to Treat Unable to Treat Due To : Acuity of Illness, Patient on hold, Pending order clarification Inability to Treat Comment : AKA rescheduled for 06/20/12; eval held until this is completed and new orders are received. FELTON RUSH OTR/Bartolo - 06/20/2019 13:46 EDT documented in this encounter Plan of Treatment Not on file documented as of this encounter Visit Diagnoses Not on filedocumented in this encounter
--- OUTSIDE RECORDS SUMMARY | 2024-08-09 13:29 | XMS_ITS ---
Author Organization [facility] (Divested) Care Team Providers Care Physical Scientist Name Role Phone Dee Rosenberg Unavailable Unavailable Zheng Morrow Unavailable Unavailable Chung Buck Unavailable Unavailable Kat Cordoba Unavailable Unavailable Halima Aranda Unavailable Unavailable Allergies and adverse reactions Code CodeSystem Substance Reaction Severity StartDate Concern Status 493926364 SNOMED CT Sulfa Antibiotics Unknown 07/19/2019 active 8152 RXNORM Phentermine Unknown 07/19/2019 active 7984 RXNORM Penicillin Unknown 07/19/2019 active Naprosyn Unknown 07/19/2019 active Mobic Unknown 07/19/2019 active LATEX Unknown 07/19/2019 active 55851 RXNORM Etodolac Unknown 07/19/2019 active Bextra Unknown 07/19/2019 active 40081 RXNORM Amlodipine Unknown 07/19/2019 active Care Team Name Role Address Phone Organization Dates Zheng Morrow PCP [address], [place], [address], [place] (Office): : [facility] (Divested) 07/19/2019 - 10/28/2019 Dee Rosenberg [address] [place], [address], [facility] (Office): : [facility] (Divested) 07/19/2019 - 10/28/2019 Chung Buck [address] [place] [address], [address], [place] (Office): : [facility] (Divested) 07/19/2019 - 10/28/2019 Kat Cordoba [address] [place] [address], [address], [facility] (Office): : [facility] (Divested) 07/19/2019 - 10/28/[address], [place], [address], [place] (Office): [facility] (Divested) 07/19/2019 - 10/28/2019 Immunizations Immunization Status Vaccine Details Vaccine Code CodeSystem Date Notes TB 2 Step Mantoux Skin Test completed tuberculin skin test; unspecified formulation lotNumber: [id number] expiry: 04/21/2020 Mfg: [employer] Given 0.1 ml Right Forearm intradermally Step 2 of Multi-step with next step required 98 CVX created date: 07/28/2019 consent date: 07/28/2019 administere d date: 07/28/2019 TB 2 Step Mantoux Skin Test completed tuberculin skin test; unspecified formulation Step 1 of Multi-step with next step required 98 CVX created date: 07/25/2019 consent date: 07/25/2019 administere d date: 07/19/2019 Mental Status Section Date Assessment Total Score Description 10/28/2019 BIMS 15 cognitively int act CAM 0 No delirium ind icated PHQ-9 00 10/23/2019 BIMS 15 cognitively int act CAM 0 No delirium ind icated PHQ-9 00 Problems Problem # Description Date of onset Resolved Date Code CodeSystem Concern Status 1 BODY MASS INDEX [BMI]40.0-44.9, ADULT 07/19/[address] active 2 CELLULITIS OF LEFT LOWER LIMB 07/19/[address] active 3 DEPENDENCE ON SUPPLEMENTAL OXYGEN 07/19/1907/21/[address] completed 4 DIFFICULTY IN WALKING, NOT ELSEWHERE CLASSIFIED 07/19/[address] active 5 ESSENTIAL (PRIMARY) HYPERTENSION 07/19/[address] active 6 GASTRO-ESOPHAGEA L REFLUX DISEASE WITHOUT ESOPHAGITIS 07/19/[address] active 7 HYPERLIPIDEMIA, UNSPECIFIED 07/19/[address] active 8 HYPOTHYROIDISM, UNSPECIFIED 07/19/[address] active 9 INFECTION AND INFLAMMATORY REACTION DUE TO INTERNAL LEFT KNEE PROSTHESIS, SUBSEQUENT ENCOUNTER 07/19/[address] active 10 ASSISTED (CURRENT) USE OF ANTIBIOTICS 07/19/[address] active 11 MUSCLE WEAKNESS (GENERALIZED) 07/19/[address] active 12 NEED FOR ASSISTANCE WITH PERSONAL CARE 07/19/[address] active 13 PAIN IN LEFT KNEE 07/19/[address] active 14 POLYOSTEOARTHRIT IS, UNSPECIFIED 07/19/[address] active 15 PRESENCE OF LEFT ARTIFICIAL KNEE JOINT 07/19/[address] active 16 SEVERE SEPSIS WITHOUT SEPTIC SHOCK 07/19/[address] active 17 STREPTOCOCCUS, GROUP B, THE CAUSE OF DISEASES CLASSIFIED ELSEWHERE 07/19/[address] active 18 UNSPECIFIED PROTEIN-CALORIE MALNUTRITION 07/19/[address] active 19 VENOUS INSUFFICIENCY (CHRONIC) (PERIPHERAL) 07/19/[address] active Reason for Referral No Reasons for Referral Entered Social History Social History Observation Description Start Date End Date Code Code System Current Smoking Status Tobacco smoking consumption unknown 851196205 SNOMED CT Sex Assigned At Female 1940 93762-2 [facility] Gender Identity Vital Signs Code Code System Vitals Name Values and Units Timing Information 79214-8 [facility] Pain Level Value=0.0 10/28/2019 8462-4 [facility] Blood Pressure-Diastolic Value=78 Un its=mmHg 10/28/2019 8480-6 [facility] Blood Pressure-Systolic Kcttp=728 Un its=mmHg 10/28/2019 8310-5 [facility] Body Temperature Value=97.4 Units= F 10/28/2019 8867-4 [facility] Heart rate Value=73.0 Units=/min 38257-4 [facility] O2 % BldC Oximetry Value=96.0 Units= % 10/28/2019 9279-1 [facility] Respiratory Rate Value=16.0 Units=/m in 10/25/2019 05174-4 [facility] Weight Dtbim=005.8 Units=Lbs 07/2019 8302-2 [facility] Height Value=57.0 Units=Inches 07/19/2019
--- OUTSIDE RECORDS SUMMARY | 2024-08-09 13:29 | XMS_ITS | Encounter Summary ---
Author Organization [employer] Address [address] [place] [address] Care Team Providers Care Security Patrol Officer Name Role Phone Unavailable Primary Care Provider Unavailabl e Encounter Details Date Type Department Care Team (Late st Contact Info) Description 07/03/2019 Transcribed Document [facility] [address] [place] [address] Jordan Barahona MD [address] [place] [address] Social History Tobacco Use Types Packs/Day Years [...] Conversion Note - Jordan Barahona MD - 07/03/2019 3:13 PM EDT Patient: SOFIA GILL Age: 79 years Sex: Female : 1940 Associated Diagnoses: None Author: JORDAN BARAHONA MD-INF ID Progress Note CC: Left knee pain Current antimicrobial therapy: Rocephin IV Subjective: afebrile, hemodynamically stable; no fever, rash, sore throat, no diarrhea walking with walker Objective Vitals Signs (last 24 hrs) Last Charted Minimum Maximum Temp 98.3 (JULY 02 07:00) 98.3 (JULY 02 07:00) 98.1 (JULY 01 15:00) Mon HR 92 (JULY 02 07:00) 80 (JULY 01 19:00) 92 (JULY 01:38) Resp Rate 20 (JULY 02 07:00) 16 (JULY 01 19:00) 20 (JULY 02 07:00) SBP 125 (JULY 02 08:15) 106 (JULY 01 19:00) 129 (JULY 01 15:00) DBP 88 (JULY 02 08:15) L 42 (JULY 01 23:38) 88 (JULY 02 07:00) MAP 58 (JULY 01:38) 58 (JULY 01 23:38) 60 (JULY 01:00) SpO2 L 93 (JULY 02 07:) L 93 (JULY 02:00) 100 (JULY 01:38) Physical Examination: Gen: Alert, in no acute [...] extremities Labs:Labs (Last four charted values) WBC 7.2 (JULY 02) H 10.6 (JUN 26) HB L 8.2 (JULY 02) L 9.7 (JUN 26) HCT L 25.8 (JULY 02) L 29.4 (JUN 26) Plt H 552 (JULY 02) H 431 (JUN 26) Na 136 (JULY 02) L 134 (JUN 28) 136 (JUN 27) 136 (JUN 26) K 4.3 (JULY 02) 4.5 (JUN 28) 4.4 (JUN 27) 4.6 (JUN 26) Cl L 100 (JULY 02) 102 (JUN 28) 103 (JUN 27) 104 (JUN 26) CO2 31 (JULY 02) 28 (JUN 28) 28 (JUN 27) 28 (JUN 26) BUN 20 (JULY 02) 12 (JUN 28) 11 (JUN 27) 9 (JUN 26) Cr 0.60 (JULY 02) 0.60 (JUN 28) 0.60 (JUN 27) 0.60 (JUN 26) Glu R H 113 (JULY 02) H 116 (JUN 28) H 127 (JUN 27) 93 (JUN 26) Ca L 7.8 (JULY 02) L 8.1 (JUN 28) L 8.1 (JUN 27) L 8.1 (JUN 26) PT 11.4 (JULY 01) 11.5 (JUNE 29) 11.6 (JUN 27) INR 1.1 (JULY 01) 1.1 (JUNE 29) 1.1 (JUN 27) AST 16 (JULY 02) 15 (JUN 26) ALT L 11 (JULY 02) L 11 (JUN 26) ALK P 54 (JULY 02) 56 (JUN 26) T Bili 0.2 (JULY 02) 0.5 (JUN 26) PTN 6.6 (JULY 02) L 5.9 (JUN 26) ALB L 1.9 (JULY 02) L 2.4 (JUN 26) Micro: [facility]: 06/15 [facility] Blood cultures positive for group B [...] line followed by chronic lifelong oral suppression -check cmp, esr unclear cause of anemia documented in this encounter Plan of Treatment Not on file documented as of this encounter Visit Diagnoses Not on filedocumented in this encounter
--- OUTSIDE RECORDS SUMMARY | 2024-08-09 13:29 | XMS_ITS | Encounter Summary ---
Author Organization [employer] Address [address] [place] [address] Care Team Providers Care Process Safety Specialist Name Role Phone Unavailable Primary Care Provider Unavailabl e Encounter Details Date Type Department Care Team (Late st Contact Info) Description 08/24/2018 Transcribed Document [facility] [facility] [place] [address] [place] [address] ProviderMariela MD [address] [place], [place] [id number] Social History Tobacco Use Types Packs/Day Years [...] Note - Historical ProviderMD - 08/24/2018 5:00 PM CDT Chart Check - Review Order Profile Entered On: 08/24/2018 18:38 EDT Performed On: 08/24/2018 17:00 EDT by Vianca Morgan, RN Chart Check Powerplans Initiated/Discontinued as Appropriate : Yes All Active Orders Reviewed : Yes Vianca Morgan, RN - 08/24/2018 18:38 EDT documented in this encounter Plan of Treatment Not on file documented as of this encounter Visit Diagnoses Not on filedocumented in this encounter
--- OUTSIDE RECORDS SUMMARY | 2024-08-09 13:29 | XMS_ITS | Encounter Summary ---
Author Organization [employer] Address [address] [place] [address] Care Team Providers Care Developing Machine Tender Name Role Phone Unavailable Primary Care Provider Unavailabl e Encounter Details Date Type Department Care Team (Late st Contact Info) Description 07/13/2019 Transcribed Document [facility] [place] Family Medicine Pending sale to [facility] [address] ProviderMariela MD [place] [address] Social History Tobacco Use Types [...] Conversion Note - Historical ProviderMD - 07/13/2019 12:12 PM CDT Interdisciplinary Rounds Entered On: 07/13/2019 12:14 EDT Performed On: 07/13/2019 12:12 EDT by СВЕТЛАНА WANG Interdisciplinary Rounds Working Summary Patient's Priority Needs : IV abx -> plan 8 wks (about 5 more weeks) then transition to PO PT/OT Brace in place-> dressing changed daily Current DRG/LOS : 560 Aftercare, musculoskeletal & connective tissue 21-25 days Anticipated DC 07/21/2019 СВЕТЛАНА WANG - 07/13/2019 12:12 EDT Interdisciplinary Rounds Meeting Interdisciplinary Rounds Date : 07/12/2019 EDT Interdisciplinary Rounds Participants : channel manager, Dietitian, Pastoral care, Pharmacist, Other: WOCN Interdisciplinary Rounds Physician(s) Assessment/Plan Summar [...] 1-Time, Stop: 07/13/19 4:00:00 EDT, Nurse Collect. Signature Line Electronically Signed on 07/12/2019 07:11 PM DONNA DRIVER MD-INT RECOMMENDATIONS/PLANS: - continue ceftriaxone 2 gm daily and plan on 8 weeks of therapy with PICC line followed by chronic lifelong oral suppression -follow inflammatory markers esr 54 follow for adverse drug effects; diarrhea, elevated LFT's, fungal superinfection etc Signature Line Electronically Signed on 07/13/2019 11:22 AM SHAWANDA BARAHONA MD-INF Final Interdisciplinary Rounds Participants Summary : Dietitian Interdisciplinary Rounds Note 09:28:00 Diet: Regular +magic cup BID + Ensure 1x/day Intake: Avg 80% x 7 meals LBM 5.12 Signed By: MAXIME CROSS, RD, LD Pharmacist Interdisciplinary Rounds Note 13:28:00 Ceftriaxone u nitl 08/10 then PO for life. Ensuring Warfarin 2mg daily doesn't increase INR > 2, want < 2 for DVT prophylaxis only. Signed By: MASSILE HENDERSON PharmD, BCPS СВЕТЛАНА WANG - 07/13/2019 12:12 EDT documented in this encounter Plan of Treatment Not on file documented as of this encounter Visit Diagnoses Not on filedocumented in this encounter
--- OUTSIDE RECORDS SUMMARY | 2024-08-09 13:29 | XMS_ITS | Encounter Summary ---
Author Organization [employer] Address [address] [place] [address] Care Team Providers Care Treasury Director Name Role Phone Unavailable Primary Care Provider Unavailabl e Encounter Details Date Type Department Care Team (Late st Contact Info) Description 06/30/2019 Transcribed Document [facility] [place] [facility] [place] [address] ProviderMariela MD [place] [place] [address] Social History Tobacco Use Types [...] Conversion Note - Historical ProviderMD - 06/30/2019 8:04 AM CDT Interdisciplinary Rounds Entered On: 06/30/2019 8:10 EDT Performed On: 06/30/2019 8:04 EDT by СВЕТЛАНА WANG Interdisciplinary Rounds Working Summary Patient's Priority Needs : IV abx -> plan 8 wks then transition to PO PT/OT Brace in place-> dressing changed daily Coumadin inititated for DVT prophylaxis Current DRG/LOS : 560 Aftercare, musculoskeletal & connective tissue 21-25 days Anticipated DC 07/21/2019 СВЕТЛАНА WANG - 06/30/2019 8:04 EDT Interdisciplinary Rounds Meeting Interdisciplinary Rounds Date : 06/28/2019 EDT Interdisciplinary Rounds Participants : project manager entertainment and media, Dietitian, Occupational Therapist, Pastoral care, Pharmacist, Physical Therapy, Other: WOCN Interdisciplinary Rounds Physician(s) Assessment/Plan Summar : Course: Plan/ cont. current care, pt/ot, encourage oral fluid intake, nutritional support, encourage use of respirometer, motoring blood pressure, renal function, blood glucose, and urine output. Continue on current IV antibiotics as recommended by infectious disease. Pain control. DVT prophylaxis. Stress ulcer prophylaxis. We'll follow Dr. Saenz recommendations. Discussed with her nurse.. Signature Line Electronically Signed on 06/28/2019 11:26 AM DONNA DRIVER MD-INT RECOMMENDATIONS/PLANS: - continue ceftriaxone 2 gm daily and plan on 8 weeks of therapy with PICC line in lifelong oral suppression - at least weekly cbc/crp/cmp and esr monitor for adrs Signature Line Electronically Signed on 06/29/2019 07:57 AM ARA JONES MD-INF Final Interdisciplinary Rounds Participants Summary : Dietitian Interdisciplinary Rounds Note 09:04:00 regular + ensure BID 75% x 7 meals LBM 06/25 Signed By: Daniella Hunt, Dietitikleber PT Interdisciplinary Rounds Note 09:26:00 Patient evaluated 06/26; wearing orthotic/brace left hip to ankle at all times, WBAT. Mod assist x 2 to EOB and mod assist x 2 sit to stand with Rwx, transfer to chair. Signed By: OSKAR MARTÍNEZ, PT OT Interdisciplinary Rounds Note 11:22:00 OT evalegia pt 06/26. Pt motivated and participating. MinAx2 bed to chair. Signed By: PATTY OWENS, OTR/L Pharmacist Interdisciplinary Rounds Note 10:09:00 Patient on Ceftriaxone for left TKR sepsis. Clarified patient's penicillin allergy as not anaphylactic and has tolerated CTX in past. Signed By: MASSIEL HENDERSON, PharmD, BCPS WOCN Interdisciplinary Rounds Note 14:40:00 06/27: pt with MASD to gluteal cleft and left knee in Vekiyszqy-Povpqs-Nzvd Abnormality: Knee Left on 06/28/2019 14:37 by [...] inc dry with steri strips see photos Signed By: TAN BRYANT, СВЕТЛАНА BARRIENTOS - 06/30/2019 8:04 EDT documented in this encounter Plan of Treatment Not on file documented as of this encounter Visit Diagnoses Not on filedocumented in this encounter
--- OUTSIDE RECORDS SUMMARY | 2024-08-09 13:29 | XMS_ITS | Encounter Summary ---
Author Organization [employer] Address [address] [place] [address] Care Team Providers Care Medical Photographer Name Role Phone Unavailable Primary Care Provider Unavailabl e Encounter Details Date Type Department Care Team (Late st Contact Info) Description 06/30/2019 Transcribed Document [facility] [place] Medicine [address] [place] [address] ProviderMariela MD [address] [place], [place] [id number] Social History Tobacco Use Types Packs/Day Years [...] Conversion Note - Historical ProviderMD - 06/30/2019 2:00 AM CDT Front Office Medical Assistant Details Entered On: 06/30/2019 3:12 EDT Performed On: 06/30/2019 2:00 EDT by Georgina Olivo RN Order Details Order Detail : N/A Oxygen Order Detail : 1 Nurse Collect Order Detail : 1 Lift/Transfer : Moderate assist Central Line Order Detail : Yes Room Service : Appropriate Arterial Line : No Georgina Olivo RN - 06/30/2019 3:12 EDT documented in this encounter Plan of Treatment Not on file documented as of this encounter Visit Diagnoses Not on filedocumented in this encounter
--- OUTSIDE RECORDS SUMMARY | 2024-08-09 13:29 | XMS_ITS | Encounter Summary ---
Author Organization [employer] Address [address] [place] [address] Care Team Providers Care Drill Operator Pneumatic Name Role Phone Unavailable Primary Care Provider Unavailabl e Encounter Details Date Type Department Care Team (Late st Contact Info) Description 06/19/2019 Transcribed Document [facility] [place] Family Medicine Replaced by [facility] [place] [address] ProviderMariela MD Replaced by [facility] [address] Social History Tobacco Use Types [...] Conversion Note - Historical ProviderMD - 06/19/2019 12:05 PM CDT Patient: SOFIA BARLOW Age: 79 Years Sex: Female : 1940 Subjective Patient seen and examined. No acute events overnight. 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 discussion with patient's original surgeon Dr. Mendenhall who agrees that above-knee amputation is the proper course for this patient continues on suppressive antibiotics follow-up aspirate cultures. Somewhat paradoxical with the high lymphocyte and low poly-count of the knee aspiration however aspiration and blood cultures both have GBS Plan per Dr. Mendenhall is above-knee amputation on Wednesday morning Please make patient nothing by mouth after midnight on Wednesday continue IV antibiotics per infectious disease Acute kidney injury N17.9 Bacteremia due to group B Streptococcus agalactiae R78.81 Cellulitis, unspecified L03.90, Cellulitis, unspecified L03.90, Left knee cellulitis L03.90 Chronic venous insufficiency I87.2 CRP elevated R79.82 Elevated procalcitonin R79.89 ESR raised R70.0 GERD (gastroesophageal reflux disease) K21.9 HTN (hypertension) I10 Hypercholesteremia E78.00 Hypokalemia E87.6 Hyponatremia E87.1 Hypothyroid E03.9 Left knee pain M25.562 Left prothetic knee infection M00.9 Leucocytosis D72.829 Morbid obesity with BMI of 40.0-44.9, adult E66.01 Murmur, cardiac R01.1 Osteoarthritis M19.90 Sepsis A41.9 Sleep apnea G47.30 Medications Inpatient acetaminophen-HYDROcodone 325 mg-5 mg oral tablet, 1 Tab, Oral, Q4H, PRN acetaminophen-HYDROcodone 325 mg-5 mg oral tablet, 2 Tab, Oral, Q4H, PRN Ativan, 0.5 mg= 0.25 mL, IntraMuscular, Q4H, [...] Daily fluticasone 50 mcg/inh nasal spray, 2 [place], Nostrils Both, BID, PRN gabapentin, 300 mg= [...] BID fluticasone 50 mcg/inh nasal spray, 2 [place], Nostrils Both, BID, PRN Lasix 40 mg [...] H 5.3 24 H 1.51 \ JUN 18 03:49 \ L 9.1 / H 24.7 281 / L 28.0 \ Albumin Level: 1.5 Gram/dL Low Alk Phos: 188 Units/Liter High ALT: 21 Units/Liter Anion Gap: 16 AST: 26 Units/Liter Bilirubin Total: 0.3 mg/dL Calcium Level: 7.9 mg/dL Low Protein Total: 4.4 Gram/dL Low Imaging Results (Last 24 Hours) No [...] FEMORAL W SYNTH SUB, CEMENT, OPEN (10/26/2016), Weiser filter, lap band gastric bypass, left knee ORIF, left shoulder ORIF, left TKA, left TSA, revision left TKA, right RCR, x 2. Allergies amLODIPine valdecoxib Bextra (Itching) Latex (Itching) Mobic (Itching) Naprosyn (Itching) etodolac (Itching) penicillin (Shortness of breath) phentermine (unknown reaction) sulfa drugs (Itching) Electronically signed by [facility] Conversion Environmental Compliance Engineer Cerner at 06/16/2022 8:26 PM CDT documented in this encounter Plan of Treatment Not on file documented as of this encounter Visit Diagnoses Not on filedocumented in this encounter
--- OUTSIDE RECORDS SUMMARY | 2024-08-09 13:29 | XMS_ITS | Encounter Summary ---
Author Organization [employer] Address [address] [place] [address] Care Team Providers Care Cyber Security Systems Engineer Name Role Phone Unavailable Primary Care Provider Unavailabl e Encounter Details Date Type Department Care Team (Late st Contact Info) Description 06/19/2019 Transcribed Document [facility] [place] Family Medicine [address] [place] [address] ProviderMariela MD [address], [place] [phone] Social History Tobacco Use Types Packs/Day Years [...] Conversion Note - Historical ProviderMD - 06/19/2019 5:00 AM CDT Chart Check - Review Order Profile Entered On: 06/19/2019 3:59 EDT Performed On: 06/19/2019 5:00 EDT by Adrianna Ortiz RN Chart Check Powerplans Initiated/Discontinued as Appropriate : Yes All Active Orders Reviewed : Yes Adrianna Ortiz, RN - 06/19/2019 3:59 EDT documented in this encounter Plan of Treatment Not on file documented as of this encounter Visit Diagnoses Not on filedocumented in this encounter
--- OUTSIDE RECORDS SUMMARY | 2024-08-09 13:29 | XMS_ITS | Encounter Summary ---
Author Organization [employer] Address [address] [place] [address] Care Team Providers Care Online Communications Manager Name Role Phone Unavailable Primary Care Provider Unavailabl e Encounter Details Date Type Department Care Team (Late st Contact Info) Description 08/24/2018 Transcribed Document [facility] [place] [facility] [place] [address] ProviderMariela MD [address] [place], [place] [phone] Social History Tobacco Use Types Packs/Day Years [...] Conversion Note - Historical ProviderMD - 08/24/2018 8:15 PM CDT Spiritual Care Short Form Entered On: 08/24/2018 20:42 EDT Performed On: 08/24/2018 20:15 EDT by ADELAIDE JJ CHAPLAIN General Information, Spiritual Care Spiritual Care Referred by : initiated Reason for Visit : Initial Ministry Provided to : Patient Intervention/Comment/Summary Points : Pt had total right kne repalcement surgery on Wednesday - Aug 22. Pt stated that she os going to [facility] tomorrow for rehab. Pt shared that her surgery went well. prayed for pt's rehab an dhealing of pt's right knee. ADELAIDE JJ CHAPLAIN - 08/24/2018 20:40 EDT documented in this encounter Plan of Treatment Not on file documented as of this encounter Visit Diagnoses Not on filedocumented in this encounter
--- OUTSIDE RECORDS SUMMARY | 2024-08-09 13:29 | XMS_ITS | Encounter Summary ---
Author Organization [employer] Address [address] [place] [address] Care Team Providers Care Life Insurance Underwriter Name Role Phone Unavailable Primary Care Provider Unavailabl e Encounter Details Date Type Department Care Team (Late st Contact Info) Description 06/19/2019 Transcribed Document [facility] [place] Family Medicine [address] [place] [address] ProviderMariela MD [address] [place] [address] Social History Tobacco Use Types Packs/Day Years [...] Note - Historical ProviderMD - 06/19/2019 2:00 AM CDT Store Manager Details Entered On: 06/19/2019 2:05 EDT Performed On: 06/19/2019 2:00 EDT by Adrianna Ortiz RN Order Details Transport Mode Order Detail : Wheelchair Isolation Precautions Order Detail : Contact precautions, Standard Precautions Order Detail : N/A IV Order Detail : 1 Nurse Collect Order Detail : 0 Lift/Transfer : Moderate assist Central Line Order Detail : No Room Service : Appropriate Arterial Line : No Adrianna Ortiz RN - 06/19/2019 2:05 EDT documented in this encounter Plan of Treatment Not on file documented as of this encounter Visit Diagnoses Not on filedocumented in this encounter
--- OUTSIDE RECORDS SUMMARY | 2024-08-09 13:29 | XMS_ITS | Encounter Summary ---
Author Organization [employer] Address [address] [place] [address] Care Team Providers Care Supervisor Lead Refinery Name Role Phone Unavailable Primary Care Provider Unavailabl e Encounter Details Date Type Department Care Team (Late st Contact Info) Description 07/02/[address] [facility] [place] [facility] [place] [address] ProviderMariela MD [facility] [address] Social History Tobacco Use Types [...] Cerner Conversion Note - Mariela ProviderMD - 07/02/2019 8:38 PM CDT Patient: SOFIA BARLOW Age: 79 [...] no trouble w. urination. ???Slow progressive improvement ???Participating with PT/OT Review of Systems Constitutional: No [...] 0.9% 50 mL 2 Gram, IV Piggyback, [id number] cyanocobalamin 1,000 mcg tab 5,000 mcg 5 [...] fluticasone 0.05% nasal spray 100 mcg 2 [place], Nostrils Both, BID magnesium hydroxide 8% liq [...] Sleep apnea Physical Examination VS/Measurements Vital Measurements 07/02/2019 19:00 EDT Systolic Blood Pressure 106 mmHg Diastolic Blood Pressure 45 mmHg LOW Mean Arterial Pressure (MAP)-BMDI 60 Temperature Source Oral Temperature Mode Fahrenheit Temperature, Fahrenheit 98.7 Deg F Clinical Temperature, C 37.1 Deg C Heart Rate Monitored 80 bpm Respiratory Rate 16 Breaths/Min Oxygen Saturation [...] renal function, blood glucose, and urine output. Given IV antibiotics as recommended by infectious disease. Pain control. DVT prophylaxis. Close monitoring fluid and electrolytes.. Fall risk precautions. Stress ulcer prophylaxis.. Orders Order Profile (Selected) Inpatient Orders Ordered (Scheduled) CBC w/ Auto Diff: Specimen Type: Blood, AM Draw collect, 07/03/19 4:00:00 EDT, 1-Time, Stop: 07/03/19 4:00:00 EDT, Nurse Collect CMP Comprehensive Metabolic Panel: Specimen Type: Blood, AM Draw collect, 07/03/19 4:00:00 EDT, 1-Time, Stop: 07/03/19 4:00:00 EDT, Nurse Collect CRP C-Reactive Protein: Specimen Type: Blood, AM Draw collect, 07/03/19 4:00:00 EDT, 1-Time, Stop: 07/03/19 4:00:00 EDT, Nurse Collect ESR Sedimentation Rate Auto: Specimen Type: Blood, AM Draw collect, 07/03/19 4:00:00 EDT, 1-Time, Stop: 07/03/19 4:00:00 EDT, Nurse Collect Prealbumin: Specimen Type: Blood, AM Draw collect, 07/03/19 4:00:00 EDT, 1-Time, Stop: 07/03/19 4:00:00 EDT, Nurse Collect. documented in this encounter Plan of Treatment Not on file documented as of this encounter Visit Diagnoses Not on filedocumented in this encounter
--- OUTSIDE RECORDS SUMMARY | 2024-08-09 13:29 | XMS_ITS | Encounter Summary ---
Author Organization [employer] Address [address] [place] [address] Care Team Providers Care Housekeeping Lead Name Role Phone Unavailable Primary Care Provider Unavailabl e Encounter Details Date Type Department Care Team (Late st Contact Info) Description 06/21/2019 Transcribed Document [facility] [place] [facility] [place] [address] ProviderMariela MD [facility] [place] [address] Social History Tobacco Use Types [...] Cerner Conversion Note - Historical Provider, - 06/21/2019 7:25 PM CDT Evaluation, Physical Therapy Entered On: 06/22/2019 15:48 EDT Performed On: 06/22/2019 15:37 EDT by MUKUL MARTINEZ, PT General Information, PT Visit Type, PT : Initial evaluation Patient Orders : Order Date Order Ordering 06/19/2019 13:20 Physical Therapy Eval and Treat Ordered By: DONNA DRIVER MD-INT 06/20/2019 13:12 PT Evaluation and Treatment Ordered By: ODNNA DRIVER MD-INT 06/21/2019 19:25 PT Evaluation and [...] site 06/17/2019 12:00 Venous insufficiency (chronic) (peripheral) Admission Date : 06/16/2019 21:08 Personal Devices : Personal Devices Glasses Assistive Devices : Assistive Devices No Devices Recorded General Information Comment, PT : Pt admitted with R knee infection after previous TKA. Now s/p R total knee revision and patellar tendon repair (06-21-19). MUKUL MARTINEZ, PT - 06/22/2019 15:40 EDT General Status Patient Received Status : Supine in bed, Other: IV Treatment Start Time : 06/22/2019 15:12 EDT Patient Left Status : Supine in bed, Communication board completed, All needs met and within reach RN/PCT Informed Comment : RN ok'd PT Treatment End Time : 06/22/2019 15:37 EDT Treatment Time : 25 Minute(s) MUKUL MARTINEZ, PT - 06/22/2019 15:40 EDT History and Environment Patient Lives With : Alone Persons Assisting Patient at Home : Alone Home Equipment Therapy, PT : Cane, Shower Equipment, Walker, Wheelchair Cane : Cane, single point Shower Equipment : Shower Chair, with back Walker : Walker, front wheel Wheelchair : Wheelchair, standard Ramp : Yes MUKUL MARTINEZ, PT - 06/22/2019 15:40 EDT Prior Level of Function PT GRID Prior LOF Ambulation, Household : Independent Prior LOF Ambulation, Community : Independent Prior LOF Bed Mobility : Independent Prior LOF Toileting : Independent Prior LOF Transfer : Independent MUKUL MARTINEZ, PT - 06/22/2019 15:40 EDT Upper Extremity Right UE Active ROM : WFL Right UE Strength : WFL Left UE Active ROM : WFL Left UE Strength : WFL MUKUL MARTINEZ, PT - 06/22/2019 15:40 EDT Lower Extremity RLE Active ROM : WFL Right LE Strength : WFL LLE Active ROM : Impaired Left LE Strength : Impaired Lower Extremity Comment : LLE ROM not tested due to L knee brace (immobilized in extension) MUKUL MARTINEZ, PT - 06/22/2019 15:40 EDT Functional Mobility Mobility Grid Supine to Sit : Rehab Maximal assistance (Comment: x 2 [MUKUL MARTINEZ, PT - 06/22/2019 15:40 EDT] ) Sit to Stand : Rehab Maximal assistance (Comment: x 2 [MUKUL MARTINEZ, PT - 06/22/2019 15:40 EDT] ) Stand to Sit : Rehab Maximal assistance (Comment: x 2 [MUKUL MARTINEZ, PT - 06/22/2019 15:40 EDT] ) Sit to Supine : Rehab Maximal assistance (Comment: x 2 [MUKUL MARTINEZ, PT - 06/22/2019 15:40 EDT] ) MUKUL MARTINEZ, PT - 06/22/2019 15:40 EDT Functional MobilityComment : Sat EOB about 10 mins. Stood x 1 rep up to RWx for about 20 secs with max x 2. Unable to shift weight to take steps or transfer to chair. MUKUL MARTINEZ, PT - 06/22/2019 15:40 EDT Gait Training/Assessment, PT Weight Bearing Status : As tolerated left lower extremity MUKUL MARTINEZ, PT - 06/22/2019 15:40 EDT Neuromuscular Reeducation, PT Balance Comment : -Good for static and dynamic sitting, poor for static and dynamic standing MUKUL MARTINEZ, PT - 06/22/2019 15:40 EDT Neurological/Sensory Overall Sensory Response : Intact Response to Pain : Intact MUKUL MARTINEZ, PT - 06/22/2019 15:40 EDT Edu Topics Physical Therapy Education Grid Role of Physical Therapy : Verbalizes understanding, Needs further teaching Safety : Needs further teaching, Verbalizes understanding Transfer Training : Needs further teaching, Verbalizes understanding Use of Assistive Device : Needs further teaching, Verbalizes understanding MUKUL MARTINEZ, PT - 06/22/2019 15:40 EDT Indication Assesessment, PT Physical Therapy Indicated : Yes PT Problem List : Impaired, activities daily living, Impaired, bed mobility, Impaired, coordination/proprioception, Impaired, endurance tolerance, Impaired, standing balance, Impaired, strength, Impaired, transfers Potential Barriers To Therapy : Acuity of Illness, Fatigue Rehabilitation Potential : Good MUKUL MARTINEZ, PT - 06/22/2019 15:40 EDT Plan of Care, PT PT Tx Plan/Goals Established w Patient : Yes PT Frequency Rehab : Daily, twice (bid) PT Duration Rehab : Seven Days PT Treatments Planned : Balance training, Bed mobility training, Neuromuscular reeducation, Safety education, Therapeutic exercises, Transfer training MUKUL MARTINEZ, PT - 06/22/2019 15:40 EDT Mcc Goals Other PT LTG Grid Goal #1 Goal #2 Other : Pt will perform supine to sit with min assist for improvement in functional mobility. Pt will perform sit to stand with min x 2 for improvement in functional mobility. Date to Meet : 06/29/2019 EDT 06/29/2019 EDT Goal Status : Initial goal Initial goal MUKUL MARTINEZ, PT - 06/22/2019 15:40 EDT MUKUL MARTINEZ, PT - 06/22/2019 15:40 EDT Treatment Note Subjective Comment : Pt agreeable to PT eval. Patient's Response to Treatment : Good Additional Objective Information : -L knee immobilized in extension, brace stays on at all times Assessment : Pt will benefit from skilled PT to address function and strength while in the hospital. Expect need for rehab at d/c. Plan for Treatment : see pt daily to twice daily as appropriate MUKUL MARTINEZ, PT - 06/22/2019 15:40 EDT Pain Assessment Pain Scaled Used : 0-10 Pain scale Pain Score Pre-Intervention : 0 Pain Score During-Intervention : 0 Pain Score Post-Intervention. : 0 MUKUL MARTINEZ, PT - 06/22/2019 15:40 EDT Image 1 - Images currently included in the form version of this document have not been included in the text rendition version of the form. Anticipated Discharge Needs, OT/PT Anticipated Discharge to : Unit, rehabilitation Recommend Continued Therapy at Discharge : Yes MUKUL MARTINEZ, PT - 06/22/2019 15:40 EDT [facility] PT Charges PT Ther Activities Ea 15 Min : 1 PT Eval Moderate Complexity : 1 MUKUL MARTINEZ, PT - 06/22/2019 15:40 EDT Electronically signed by Chantal Cox [place] Conversion Bilingual Research Interviewer Cerner at 06/16/2022 8:06 PM CDT documented in this encounter Plan of Treatment Not on file documented as of this encounter Visit Diagnoses Not on filedocumented in this encounter
--- OUTSIDE RECORDS SUMMARY | 2024-08-09 13:29 | XMS_ITS | Encounter Summary ---
Author Organization [employer] Address [address] [place] [address] Care Team Providers Care Powder Operator Name Role Phone Unavailable Primary Care Provider Unavailabl e Encounter Details Date Type Department Care Team (Late st Contact Info) Description 06/20/2019 Transcribed Document [facility] [place] [address] [place] [address] ProviderMariela MD [address] [place], [place] [id number] Social History Tobacco Use Types Packs/Day Years [...] Conversion Note - Historical ProviderMD - 06/20/2019 12:40 AM CDT Event Note Entered On: 06/20/2019 0:43 EDT Performed On: 06/20/2019 0:40 EDT by Adrianna Ortiz RN Event Note Event Date/Time : 06/20/2019 0:40 EDT Description of Event : Notified by House Manager that Dr Saenz would not be performing the scheduled knee amputation this AM (06/19) and he would be rescheduling for 06/20 on Wednesday and patient is allowed to eat at this time. Diet was modified. Adrianna Ortiz RN - 06/20/2019 0:40 EDT Electronically signed by Maureen Cornejo Conversion Staff Nuclear Medicine Technologist Cerner at 06/16/2022 8:20 PM CDT documented in this encounter Plan of Treatment Not on file documented as of this encounter Visit Diagnoses Not on filedocumented in this encounter
--- OUTSIDE RECORDS SUMMARY | 2024-08-09 13:29 | XMS_ITS | Encounter Summary ---
Author Organization [email or web address] Address [address] [place] [address] Care Team Providers Care Chief Privacy Officer Name Role Phone Unavailable Primary Care Provider Unavailabl e Encounter Details Date Type Department Care Team (Late st Contact Info) Description 06/18/2019 Transcribed Document [facility] [place] [address] [place] [address] ProviderMariela MD [address] [place] [address] Social History Tobacco Use Types Packs/Day Years [...] Conversion Note - Historical ProviderMD - 06/18/2019 2:00 AM CDT Care Transition Mgr Details Entered On: 06/18/2019 6:45 EDT Performed On: 06/18/2019 2:00 EDT by Ophelia Ling RN Order Details Transport Mode Order Detail : Wheelchair Isolation Precautions Order Detail : Contact precautions, Standard Precautions Order Detail : N/A IV Order Detail : 1 Oxygen Order Detail : 0 Nurse Collect Order Detail : 0 Lift/Transfer : Moderate assist Central Line Order Detail : No Room Service : Appropriate Arterial Line : No Ophelia Ling RN - 06/18/2019 6:45 EDT documented in this encounter Plan of Treatment Not on file documented as of this encounter Visit Diagnoses Not on filedocumented in this encounter
--- OUTSIDE RECORDS SUMMARY | 2024-08-09 13:29 | XMS_ITS | Encounter Summary ---
Author Organization [employer] Address [address] [place] [address] Care Team Providers Care Business Services Representative Name Role Phone Unavailable Primary Care Provider Unavailabl e Encounter Details Date Type Department Care Team (Late st Contact Info) Description 06/20/2019 Transcribed Document [facility] [place] [facility] [place] [address] ProviderMariela MD [facility] [place] [address] Social History Tobacco Use [...] Conversion Note - Historical ProviderMD - 06/20/2019 10:48 AM CDT Patient: SOFIA GILL Age: 79 years Sex: Female : 1940 Associated Diagnoses: None Author: ARA JONES MD-INF ID Progress Note CC: Left knee pain Current antimicrobial therapy: Rocephin IV and clindamycin Subjective: Patient less confused today, still with low-grade fevers surgery for left AKA rescheduled for tomorrow still with left knee pain some nausea ROS: Fevers and confused, no rash or diarrhea per RN. otherwise unobtainable Objective: Vitals Signs (last 24 hrs) Last Charted Minimum Maximum Temp 98.1 (JUN 19 09:16) 98.1 (JUN 19 09:16) H 100.3 (JUN 19 05:22) Mon HR 102 (JUN 19 09:16) 58 (APR 20 23:11) 105 (JUN 19 00:19) Resp Rate 20 (JUN 19 09:16) 16 (JUN 18 23:11) 20 (JUN 19 05:00) SBP H 146 (JUN 19:16) 107 (JUN 19 02:00) H 156 (JUN 19 05:22) DBP 79 (JUN 19 09:16) L 54 (JUN 18 17:51) H 95 (JUN 18 23:11) MAP 94 (JUN 19 09:16) 68 (JUN 19 02:00) 103 (JUN 18 23:11) SpO2 98 (JUN 19 09:16) 94 (JUN 18 17:51) 98 (JUN 19 00:19) Physical Examination: Gen: Alert, less confused today HEENT: NC/AT, PERRLA, EOMI, sclera nonicteric, no conjunctival injection RESP: CTA bilaterally without rhonchi, rales, or wheezes. Nonlabored breathing CV: RRR, loud systolic murmur. GI: BS normoactive in all 4 quadrants, soft, nontender, nondistended : No hcou in place MS: to 3+ edema bilaterally [...] 18) L 32.3 (JUN 17) L 31.3 (MAY 18) Plt H 389 (JUN 19) 281 (JUN 18) 266 (JUN 17) 265 (JUN 16) Na L 135 (JUN 19) 136 (JUN 18) L 130 (JUN 17) L 130 (MAY 18) K 4.6 (JUN 19) 4.6 (JUN 18) H 5.3 (JUN 17) H 5.8 (JUN 16) Cl 102 (JUN 19) 103 (JUN 18) L 97 (JUN 17) L 97 (APR 18) CO2 22 (JUN 19) 22 (JUN 18) 24 (JUN 17) 26 (JUN 16) BUN H 26 (JUN 19) H 31 (JUN 18) H 50 (JUN 17) H 55 (JUN 16) Cr 0.75 (JUN 19) 0.93 (JUN 18) H 1.51 (JUN 17) H 1.65 (JUN 16) Glu R 102 (JUN 19) L 73 (JUN 18) 87 (JUN 17) 79 (JUN 16) Ca L 7.8 (JUN 19) L 7.9 (JUN 18) L 8.1 (JUN 17) L 8.0 (JUN 16) Lactic 1.1 (JUN 16) AST 27 (JUN [...] (JUN 18) L 2.0 (JUN 16) Micro: [place]: 06/15 [facility] Blood cultures positive for group B strep and 2/2 bottles SJE: 06/16 fluid aspiration of left knee shows 118,150 white blood cells, GPC 06/16 repeat blood cultures with Group B Strep 06/16 MRSA surveillance culture and pro/pending 06/16 Urine culture in process/pending Rad: Radiology Results (Last 48 hours) [id number] -- 06/16/2019 21:08 CR Knee 1 or [...] will discontinue clindamycin today plans for surgery tomorrow RECOMMENDATIONS/PLANS: - f/u pending blood cultures okay to place PICC line will order today - continue ceftriaxone 2 gm daily - Nausea we'll discontinue clindamycin - likely to need a prolonged course of IV antibiotics - orthopedic surgery following.AKA planned for tomorrow documented in this encounter Plan of Treatment Not on file documented as of this encounter Visit Diagnoses Not on filedocumented in this encounter
--- OUTSIDE RECORDS SUMMARY | 2024-08-09 13:29 | XMS_ITS | Encounter Summary ---
Author Organization [employer] Address [address] [place] [address] Care Team Providers Care Director Semiconductor Name Role Phone Unavailable Primary Care Provider Unavailabl e Encounter Details Date Type Department Care Team (Late st Contact Info) Description 06/18/2019 Transcribed Document [facility] [place] [facility] [place] [address] ProviderMariela MD [place] [address] Social History Tobacco Use Types [...] Cerner Conversion Note - Mariela ProviderMD - 06/18/2019 10:55 PM CDT Patient: SOFIA BARLOW Age: 79 [...] injury Author: DONNA DRIVER MD-INT Basic Information -confused & agitated today -LGF -Pulled all IV -Blood Cx done in house positive for grm positive cocci in pairs & in chain -WBCs elevated -NOLBERTO stable -Discussed with her son Sam her condition & possible plan Review of Systems Constitutional: No fever, No [...] 0.9% 50 mL 2 Gram, IV Piggyback, [id number] clindamycin/D5w 600 mg 50 mL, IV Piggyback, [...] Oral, Q4H fluticasone 0.05% nasal spray 2 [place], Nostrils Both, BID gabapentin 300 mg cap [...] Sleep apnea Physical Examination VS/Measurements Vital Measurements 06/18/2019 22:53 EDT Systolic Blood Pressure 113 mmHg Diastolic Blood Pressure 96 mmHg HI Mean Arterial Pressure (MAP)-BMDI 100 Temperature Source Axillary Temperature Mode Fahrenheit Temperature, Fahrenheit 99.1 Deg F Clinical Temperature, C 37.3 Deg C Heart Rate Monitored 110 bpm HI Heart Rate Monitored 102 bpm HI Respiratory Rate 20 Breaths/Min Oxygen Saturation 99 % Oxygen Saturation 98 % Oxygen Therapy Mode BiPAP 06/18/2019 18:00 EDT Systolic Blood Pressure 119 mmHg Diastolic Blood Pressure 52 mmHg LOW Mean Arterial Pressure (MAP)-BMDI 63 Temperature Source Oral Temperature Mode Fahrenheit Temperature, Fahrenheit 100 Deg F HI Clinical Temperature, C 37.8 Deg C Heart Rate Monitored 48 bpm LOW Respiratory Rate 16 Breaths/Min Oxygen Saturation 97 % 06/18/2019 13:07 EDT Systolic Blood Pressure 125 mmHg Diastolic Blood Pressure 56 mmHg LOW Mean Arterial Pressure (MAP)-BMDI 71 Temperature Source Oral Temperature Mode Fahrenheit Temperature, Fahrenheit 99 Deg F Clinical Temperature, C 37.2 Deg C Heart Rate Monitored 156 bpm HI Respiratory Rate 16 Breaths/Min Oxygen Saturation 84 % LOW General: Alert and oriented, No [...] No swelling, Lt knee swelling & tender onpalpation. Integumentary: Warm, Intact, No rash. Neurologic: Alert, Oriented, No focal deficits. Psychiatric: Cooperative, Appropriate mood & affect. Review / Management Results review: All Results 06/18/2019 3:36 EDT Sodium Level 130 mmol/L [...] fL RDW 13.1 % Slide Review No 06/17/2019 3:44 EDT Sodium Level 130 mmol/L LOW Potassium Level 5.8 mmol/L HI Chloride Level 97 mmol/L LOW Carbon Dioxide Level 26 mmol/L Anion Gap 13 Glucose Level 79 mg/dL Blood Urea Nitrogen 55 mg/dL HI Creatinine Level 1.65 mg/dL HI eGFR 37 mL/min/1.73m2 LOW eGFR NonAfrican 30 mL/min/1.73m2 LOW Bun/Creatinine 33.3 HI Calcium Level 8.0 mg/dL LOW Protein Total 5.2 Gram/dL LOW Albumin Level 2.0 Gram/dL LOW Globulin 3.2 Gram/dL A/G Ratio 0.6 LOW Bilirubin Total 0.5 mg/dL Alk Phos 133 Units/Liter AST 38 Units/Liter HI ALT 29 Units/Liter CRP 33.3 mg/dL HI Lactic Acid Level 1.1 mmol/L WBC 21.1 K/uL HI RBC 3.28 Million/uL LOW Hgb 10.0 Gram/dL LOW Hct 31.3 % LOW MCV 95.4 fL HI MCH 30.5 pg MCHC 31.9 Gram/dL LOW Platelet Count 265 K/uL MPV 9.7 fL RDW 12.9 % Neutrophil Percent Man 92 % HI ANC # 19 K/uL NA Lymph Percent Man 3 % LOW ALYC # 1 K/uL NA Starke Percent Man 5 % RBC Morphology Normal Toxic Granulation 3+ Platelet Ct Estimate Adequate Sed Rate Auto 130 mm/Hr HI . Condition: Stable. Impression and Plan [...] on IV antibiotics as per ID recommendations .Ativan prn FOR AGITATION .fall risk precautions .DVT prophylaxis with heparin.cont on IV hydration.Discussed with her son Sam her condiitiion & different tretment plan.. Orders Order Profile (Selected) Inpatient Orders Ordered (Scheduled) CBC w/ Auto Diff: Specimen Type: Blood, AM Draw collect, 06/19/19 4:00:00 EDT, 1-Time, Stop: 06/19/19 4:00:00 EDT, Lab Collect CMP Comprehensive Metabolic Panel: Specimen Type: Blood, AM Draw collect, 06/19/19 4:00:00 EDT, 1-Time, Stop: 06/19/19 4:00:00 EDT, Lab Collect CRP C-Reactive Protein: Specimen Type: Blood, AM Draw collect, 06/19/19 4:00:00 EDT, 1-Time, Stop: 06/19/19 4:00:00 EDT, Lab Collect ESR Sedimentation Rate Auto: Specimen Type: Blood, AM Draw collect, 06/19/19 4:00:00 EDT, 1-Time, Stop: 06/19/19 4:00:00 EDT, Lab Collect. documented in this encounter Plan of Treatment Not on file documented as of this encounter Visit Diagnoses Not on filedocumented in this encounter
--- OUTSIDE RECORDS SUMMARY | 2024-08-09 13:29 | XMS_ITS | Encounter Summary ---
Author Organization [employer] Address [address] [place] [address] Care Team Providers Care Slab Tripper Name Role Phone Unavailable Primary Care Provider Unavailabl e Encounter Details Date Type Department Care Team (Late st Contact Info) Description 06/19/2019 Transcribed Document [facility] [place] [address] [place] [address] ProviderMariela MD [address] [place] [address] Social History Tobacco Use Types Packs/Day Years Used Date Smoking Tobacco: Never Assessed Comments Unknown Sex and Gender Information Value Date Recorded Sex Assigned at Female 09/02/2021 8:57 PM CDT Legal Sex Female 6:58 PM CDT Gender Identity Female 09/02/2021 8:57 PM CDT Sexual Orientation Not on file documented as of this encounter Miscellaneous Notes * Cerbryce Conversion Note - Mariela ProviderMD - 06/19/2019 9:50 AM CDT UM Authorization Entered On: 06/19/2019 9:50 EDT Performed On: 06/19/2019 9:50 EDT by Michelle Jimenez Rn-Utilization Review Primary Insurance Authorization Authorization and Policy Numbers : Insurance 1 Health Plan: [facility] MEDICARE ADVANTAGE Policy Number: [id number] Authorization Number: Insurance Primary Name : [facility] [employer]VANTAGE Policy Number: [id number] Authorization Status-Primary : Pending clinicals Reference Number-Primary : [id number] Authorized Service Begin Date-Primary : 06/16/2019 EDT Authorization Comments-Primary : Clinicals faxed via Min Historical Authorization Comments-Primary : Comment 1: Attempted auth on [facility] portal, message that notification cannot be completed online, Call number on back of card (Michelle Jimenez Rn-Utilization Review 06/17/2019 10:02) Michelle Jimenez Rn-Utilization Review - 06/19/2019 9:50 EDT documented in this encounter Plan of Treatment Not on file documented as of this encounter Visit Diagnoses Not on filedocumented in this encounter
--- OUTSIDE RECORDS SUMMARY | 2024-08-09 13:29 | XMS_ITS | Encounter Summary ---
Author Organization [employer] Address [address] [place] [address] Care Team Providers Care Dross Skimmer Name Role Phone Unavailable Primary Care Provider Unavailabl e Encounter Details Date Type Department Care Team (Late st Contact Info) Description 06/21/2019 Transcribed Document [facility] [place] [address] [place] [address] ProviderMariela MD [address] [place], [place] [id number] Social History Tobacco Use Types Packs/Day Years [...] Note - Historical ProviderMD - 06/21/2019 5:00 PM CDT Chart Check - Review Order Profile Entered On: 06/21/2019 18:16 EDT Performed On: 06/21/2019 17:00 EDT by Camille Wagner RN Chart Check Powerplans Initiated/Discontinued as Appropriate : Yes All Active Orders Reviewed : Yes Camille Wagner RN - 06/21/2019 18:16 EDT Electronically signed by Chantal [facility] Conversion Manager Food Safety Cerner at 06/16/2022 8:06 PM CDT documented in this encounter Plan of Treatment Not on file documented as of this encounter Visit Diagnoses Not on filedocumented in this encounter
--- OUTSIDE RECORDS SUMMARY | 2024-08-09 13:29 | XMS_ITS | Encounter Summary ---
Author Organization [employer] Address [address] [place] [address] Care Team Providers Care Plaster Mechanic Name Role Phone Unavailable Primary Care Provider Unavailabl e Encounter Details Date Type Department Care Team (Late st Contact Info) Description 08/24/2018 Transcribed Document [facility] [place] [facility] [place] [address] ProviderMariela MD [facility] [place] [address] Social History Tobacco Use Types [...] Conversion Note - Historical ProviderMD - 08/24/2018 8:02 AM CDT Final Discharge Planning Entered On: 08/24/2018 8:03 EDT Performed On: 08/24/2018 8:02 EDT by MARY MCGRAW Care Management-Media Associate Final Discharge Planning Discharge Arrangements : Patient Post-Acute Information Patient Name: SOFIA BARLOW Gender: Female : [birth year] Age: 78 Years No Post-Acute Placement(s) Listed No Post-Acute Service(s) Listed No [place] Referral(s) Listed Transportation Needs : Family/Friend Discharge To Care Management : SNF with Medicare Certification-03 MARY MCGRAW Care Management-Media Associate - 08/24/2018 8:02 EDT Final Narrative Note Final Narrative Note : Insurance approval [facility] 08/24 MARY MCGRAW, Care Management-Media Associate - 08/24/2018 8:02 EDT documented in this encounter Plan of Treatment Not on file documented as of this encounter Visit Diagnoses Not on filedocumented in this encounter
--- OUTSIDE RECORDS SUMMARY | 2024-08-09 13:29 | XMS_ITS | Encounter Summary ---
Author Organization [employer] Address [address] [place] [address] Care Team Providers Care Roller Helper Name Role Phone Unavailable Primary Care Provider Unavailabl e Encounter Details Date Type Department Care Team (Late st Contact Info) Description 08/24/2018 Transcribed Document [facility] [place] Medicine [facility] [place] [address] ProviderMariela MD [facility] [place] [address] Social History Tobacco Use Types [...] Conversion Note - Historical ProviderMD - 08/24/2018 3:00 PM CDT Pain Assessment Entered On: 08/24/2018 17:59 EDT Performed On: 08/24/2018 15:43 EDT by Vianca Morgan RN Intervention Information: acetaminophen Performed by Vianca Morgan RN on 08/24/2018 14:43:00 EDT acetaminophen,1000mg Oral Pain Assessment Pain Assessment : Follow-up assessment Pain Scale Goal : 3 Pain Scale Used : 0-10 Scale Vianca Morgan RN - 08/24/2018 17:59 EDT Pain Scale Intensity : 2 Vianca Morgan RN - 08/24/2018 17:59 EDT Image 4 - Images currently included in the form version of this document have not been included in the text rendition version of the form. documented in this encounter Plan of Treatment Not on file documented as of this encounter Visit Diagnoses Not on filedocumented in this encounter
--- OUTSIDE RECORDS SUMMARY | 2024-08-09 13:29 | XMS_ITS | Encounter Summary ---
Author Organization [employer] Address [address] [place] [address] Care Team Providers Care Casing Builder Name Role Phone Unavailable Primary Care Provider Unavailabl e Encounter Details Date Type Department Care Team (Late st Contact Info) Description 07/02/2019 Transcribed Document EM Family Medicine [facility] [address] ProviderMariela MD [address] [place] [address] Social History Tobacco Use Types [...] Cerner Conversion Note - Historical ProviderMD - 07/02/2019 10:12 AM CDT Patient: SOFIA GILL Age: 79 years Sex: Female : 1940 Associated Diagnoses: None Author: Prabhjot Devine, Pharmacist-Resident HPI: 06/15 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, [...] Last Charted Minimum Maximum Temp 98.6 (JULY 01 07:00) 98.6 (JULY 01:00) 98.6 (JUNE 30:00) Mon HR 82 (JULY 01:00) 82 (JULY 01 07:00) 100 (JUNE 30 23:00) Resp Rate 16 (JULY 01 07:00) 16 (JUNE 30 23:00) 18 (JUNE 30 15:00) SBP H 145 (JULY 01 07:00) 120 (JUNE 30:00) H 145 (JUNE 30 19:00) DBP L 57 (JULY 01 07:00) L 50 (JUNE 30:00) L 57 (JULY 01:00) SpO2 97 (JULY 01:00) 97 (JULY 01:00) 100 (JUNE 30:00) Intake & Output Totals Last 24 Hours (7a-7a) Intake (5 Events) Medications (60 mL) Oral Intake (420 mL) Output (2 Events) Urine Voided (Volume) (3000 mL) Input Total: 480 mL Output Total: 3000 mL Balance: -2520 mL Labs (Last four charted values) WBC [...] 26) Creatinine Clearance (Current Encounter/Past 24 Hours) No Creatinine Clearance Results Found (Past 24 Hours) Culture Results: 06/16 & 06/20 knee tissue strep agal Group B Date 06/27 06/28 06/29 07/01 INR 1.1 --- 1.1 1.1 Dose 4mg 2mg (2mg) 2 A/P: 1. Patient's orthopedic surgeon wants [...] is on aspirin 81mg daily (started 06/28) Thanks for the consult Prabhjot Devine PharmD PGY1 Fast Food Restaurant Manager [phone] documented in this encounter Plan of Treatment Not on file documented as of this encounter Visit Diagnoses Not on filedocumented in this encounter
--- OUTSIDE RECORDS SUMMARY | 2024-08-09 13:29 | XMS_ITS | Encounter Summary ---
Author Organization [employer] Address [address] [place] [address] Care Team Providers Care Portfolio Lead Name Role Phone Unavailable Primary Care Provider Unavailabl e Encounter Details Date Type Department Care Team (Late st Contact Info) Description 07/14/2019 Transcribed Document [facility] [place] [address] ProviderMariela MD [address] [place] [address] Social History Tobacco Use Types [...] Conversion Note - Historical ProviderMD - 07/14/2019 3:38 PM CDT Care Management Assessment/Plan Entered On: 07/14/2019 15:41 EDT Performed On: 07/14/2019 15:38 EDT by YOANNA ARAUJO RN Care Management Note Care Management Note : Yoanna Araujo 07/13/2019 1500 - patient has accepted bed offer at [facility], she will be transported on WednesdayJuly 16 at 2pm by [facility] Confirmation # [id number]. She declined the bed offer at [facility] Dr. Jaffe notified of discharge plan. Care Management Note Report : YOANNA ARAUJO, EDDIE - 07/13/19 14:37:44 Yoanna Araujo 07/13/2019 1400 received call from Ratna with [facility] offering patient a bed, Received call from Isabelle with [facility] she is looking at patient and needed a current height and weight. Still waiting to see if any other bed offers come through. I also sent referral to [facility]. YOANNA ARAUJO RN - 07/13/19 11:04:03 Yoanna Araujo 07/13/2019 1100 faxed out referral for placement for patient to [facility] and rehab, [facility] and triology facilities. Awaiting call backs. WANG, PEDRITOKEVIN - 07/12/19 12:19:17 07/12/2019 Fax received from [facility] with approval for LTAC services with a request for updated discharge plans and clinical info to support needs if not discharged. Auth#[id number]. Clinical review or discharge summary to be faxed by 07/17/2019. YOANNA ARAUJO RN - 07/12/19 08:39:48 Yoanna Araujo 07/12/2019 0830 - faxed clinical review the [facility] at [phone] to request approval for extended ltac services. Auth#[id number], awaiting approval. YOANNA ARAUJO RN - 06/29/19 [...] health and she has been to [facility] and [facility] in the past. She has the following equipment at home: wheel chair, walker, cane and shower chair. Her discharge plan is to go to rehab prior to returning home. PCP: Flavia MARQUEZ [facility] [place] [address] Filter Bed Placer: Dr. Shemar Barger [address] [place] [id number] Clemente Del Rio MD - Rheumatology - [address] [place] [address] Preferences: Home Health: [facility]: no preferences DME: [facility] - [address] [address] Care Home: [facility] facility: no preferences Will continue to monitor patient for anticipated discharge needs YOANNA ARAUJO RN - 06/29/19 08:30:20 Yoanna Araujo 06/29/2019 08 received fax from [facility] with approval for extended ltac coverage with next clinical review due on 07/12/2019. Auth#[id number]. Will continue to follow for anticipated discharge needs. YOANNA ARAUJO RN - 06/28/19 08:35:06 Yoanna Araujo 06/28/2019 0830 Faxed clinical review to [facility] at to request approval for extended Ltac services. Auth#[id number]. Pending Approval. Documentation Status Complete : Yes YOANNA ARAUJO RN - 07/14/2019 15:38 EDT documented in this encounter Plan of Treatment Not on file documented as of this encounter Visit Diagnoses Not on filedocumented in this encounter
--- OUTSIDE RECORDS SUMMARY | 2024-08-09 13:29 | XMS_ITS | Encounter Summary ---
Author Organization [employer] Address [address] [place] [address] Care Team Providers Care Submersible Pilot Name Role Phone Unavailable Primary Care Provider Unavailabl e Encounter Details Date Type Department Care Team (Late st Contact Info) Description 07/03/2019 Transcribed Document [facility] [place] [address] [place] [address] ProviderMariela MD [address] [place], [place] [id number] Social History Tobacco Use Types Packs/Day Years [...] Conversion Note - Historical ProviderMD - 07/03/2019 5:00 PM CDT Chart Check - Review Order Profile Entered On: 07/03/2019 16:19 EDT Performed On: 07/03/2019 17:00 EDT by JESUS MANUEL CABRAL LPN Chart Check Powerplans Initiated/Discontinued as Appropriate : Yes All Active Orders Reviewed : Yes JESUS MANUEL CABRAL LPN - 07/03/2019 16:18 EDT Electronically signed by Chantal [facility] [place] Conversion Communications Professional Cerbryce at 06/16/2022 8:22 PM CDT documented in this encounter Plan of Treatment Not on file documented as of this encounter Visit Diagnoses Not on filedocumented in this encounter
[2024-08-09 13:30] VITALS: BP 110/68; PULSE 61; RESP 18; TEMP 36.8; O2SAT 99
--- OUTSIDE RECORDS SUMMARY | 2024-08-09 13:30 | XMS_ITS | Encounter Summary ---
Author Organization [employer] Address [address] [place] [address] Care Team Providers Care Handbag Stitcher Name Role Phone Unavailable Primary Care Provider Unavailabl e Encounter Details Date Type Department Care Team (Late st Contact Info) Description 08/25/2018 Transcribed Document [facility] [place] Family Medicine [address] [place] [address] ProviderMariela MD [address] [place] [address] Social History Tobacco Use Types [...] Cerner Conversion Note - Historical ProviderMD - 08/25/2018 4:09 PM CDT Event Note Entered On: 08/25/2018 16:11 EDT Performed On: 08/25/2018 16:09 EDT by KAY ASIF RN Event Note Event Date/Time : 08/25/2018 11:00 EDT Event Location : Assigned room Description of Event : pt has a small hard bowell movement, pt has had miralax and stool softener. Offered pt a biscodyl suppository, pt states she may want it later. 1600- ask pt again about the suppository, pt is expecting company and wants to wait until later. KAY ASIF RN - 08/25/2018 16:09 EDT documented in this encounter Plan of Treatment Not on file documented as of this encounter Visit Diagnoses Not on filedocumented in this encounter
--- OUTSIDE RECORDS SUMMARY | 2024-08-09 13:30 | XMS_ITS | Encounter Summary ---
Author Organization [employer] Address [address] [place] [address] Care Team Providers Care Road Engineer Name Role Phone Unavailable Primary Care Provider Unavailabl e Encounter Details Date Type Department Care Team (Late st Contact Info) Description 08/24/2018 Transcribed Document [facility] [place] [place] Medicine [address] [place] [address] ProviderMariela MD [address] [place] [address] Social History Tobacco Use Types Packs/Day Years [...] Conversion Note - Historical ProviderMD - 08/24/2018 2:00 AM CDT Claim Professional Details Entered On: 08/24/2018 0:59 EDT Performed On: 08/24/2018 2:00 EDT by Nishi Osuna RN Order [...] Line : No Nishi Osuna RN - 08/24/2018 0:59 EDT documented in this encounter Plan of Treatment Not on file documented as of this encounter Visit Diagnoses Not on filedocumented in this encounter
--- OUTSIDE RECORDS SUMMARY | 2024-08-09 13:30 | XMS_ITS | Encounter Summary ---
Author Organization [employer] Address [address] [place] [address] Care Team Providers Care Flexo Press Operator Name Role Phone Unavailable Primary Care Provider Unavailabl e Encounter Details Date Type Department Care Team (Late st Contact Info) Description 06/21/2019 Transcribed Document [facility] Family Medicine [address] [place] [address] ProviderMariela MD [address] [place], [place] [id number] Social History Tobacco Use Types Packs/Day Years [...] Conversion Note - Historical ProviderMD - 06/21/2019 8:29 AM CDT Attempt to Treat, PT Entered On: 06/21/2019 8:30 EDT Performed On: 06/21/2019 8:29 EDT by MUKUL MARTINEZ PT Attempt to Treat Unable to Treat Due To : Patient on hold Inability to Treat Comment : Surgery today for L knee. Will hold PT until after surgery. MUKUL MARTINEZ PT - 06/21/2019 8:29 EDT documented in this encounter Plan of Treatment Not on file documented as of this encounter Visit Diagnoses Not on filedocumented in this encounter
--- OUTSIDE RECORDS SUMMARY | 2024-08-09 13:30 | XMS_ITS | Encounter Summary ---
Author Organization [employer] Address [address] [place] [address] Care Team Providers Care Spool Tender Name Role Phone Unavailable Primary Care Provider Unavailabl e Encounter Details Date Type Department Care Team (Late st Contact Info) Description 06/22/2019 Transcribed Document [facility] [place] [address] [place] [address] ProviderMariela MD [address] [place] [address] Social History Tobacco Use Types Packs/Day Years [...] Conversion Note - Historical ProviderMD - 06/22/2019 11:25 AM CDT Attempt to Treat, PT Entered On: 06/22/2019 11:26 EDT Performed On: 06/22/2019 11:25 EDT by TOR MEJIA PT Attempt to Treat Unable to Treat Due To : Patient on hold Inability to Treat Comment : HOLD PT EVAL until patient has BRACE. Notification : RN - Vidal Unsure when BRACE will be delivered - will be sometime today. TOR MEJIA, PT - 06/22/2019 11:25 EDT documented in this encounter Plan of Treatment Not on file documented as of this encounter Visit Diagnoses Not on filedocumented in this encounter
--- OUTSIDE RECORDS SUMMARY | 2024-08-09 13:30 | XMS_ITS | Encounter Summary ---
Author Organization [employer] Address [address] [place] [address] Care Team Providers Care Physical Security Engineer Name Role Phone Unavailable Primary Care Provider Unavailabl e Encounter Details Date Type Department Care Team (Late st Contact Info) Description 06/21/2019 Transcribed Document [facility] [place] Family Medicine [facility] [place] [address] ProviderMariela MD [facility] [place] [address] Social History Tobacco Use Types [...] Historical ProviderMD - 06/21/2019 7:25 PM CDT Pain Assessment Entered On: 06/22/2019 6:43 EDT Performed On: 06/22/2019 4:32 EDT by Reid Ramon Rn-Charge Intervention Information: oxyCODONE Performed by Reid Ramon Rn-Charge on 06/22/2019 03:32:00 EDT oxyCODONE,20mg Oral,Pain (Severe 7-10) Pain Assessment Pain Assessment : Follow-up assessment Pain Scale Goal : 3 Pain Scale Used : 0-10 Scale Reid Ramon Rn-Charge - 06/22/2019 6:43 EDT Pain Scale Intensity : 2 Reid Ramon Rn-Charge - 06/22/2019 6:43 EDT Image 4 - Images currently included in the form version of this document have not been included in the text rendition version of the form. Electronically signed by Maureen Cornejo Conversion Associate Professor Of Economics Cerner at 06/16/2022 8:29 PM CDT documented in this encounter Plan of Treatment Not on file documented as of this encounter Visit Diagnoses Not on filedocumented in this encounter
--- OUTSIDE RECORDS SUMMARY | 2024-08-09 13:30 | XMS_ITS | Encounter Summary ---
Author Organization [employer] Address [address] [place] [address] Care Team Providers Care Qm Consultant Name Role Phone Unavailable Primary Care Provider Unavailabl e Encounter Details Date Type Department Care Team (Late st Contact Info) Description 06/21/2019 Transcribed Document [facility] [place] [facility] [place] [address] ProviderMariela MD [address] [place] [id number] Social History Tobacco Use Types Packs/Day Years [...] Conversion Note - Historical ProviderMD - 06/21/2019 3:38 PM CDT DATE OF PROCEDURE: 06/21/2019 SURGEON: Riaz Saenz MD PREOPERATIVE DIAGNOSIS: 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 PROCEDURE: Left total knee arthroplasty revision with irrigation and debridement, femoral revision, and patellar tendon repair. ANESTHESIA: Femoral nerve block, sciatic. BRIAR WOOD SORTER: Brady. ESTIMATED BLOOD LOSS: Minimal. TOURNIQUET TIME: 2 hours 15 minutes. IMPLANTS USED: Jacquie distal femur size D XT, left, with a size 12B polyethylene insert and a poly box insert XT size B. LABORATORY DATA: White blood cells 34,000 in aspirate with 99% neutrophils. CLINICAL DECISION MAKING: Above-knee amputation for this patient would have been crippling since it would have been functionally a hip disarticulation. Warned the patient that she may ultimately require above-knee amputation. She understood the risks and wished to proceed. At the revision that I did, I lengthened the patient's leg 30 mm since her previous implant had subsided 30 mm. This likely put her at risk for extensor mechanism disruption because of the scarring and her previous surgeries. I felt that by shortening her leg 30 mm, I could potentially reconstruct her extensor mechanism somewhat. Even if her extensor mechanism was disrupted, I felt she would likely be better off with an infected knee suppressed with oral antibiotics with an incompetent extensor mechanism. PROCEDURE IN DETAIL: Informed consent, femoral nerve block, sciatic nerve block, general anesthesia, IV antibiotics. Tourniquet control was achieved with a sterile tourniquet following standard prep and drape for total knee arthroplasty. Elevation for exsanguination. Tourniquet was elevated. IV heparin had been given along with antibiotics. We utilized the prior incision. 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 We located the patella and made our arthrotomy in an appropriate location. Upon incising the knee, we went through thinned anteromedial capsule very quickly since the patella was subluxated laterally. We evacuated a significant amount of purulence at this time. When we completed our medial parapatellar arthrotomy and aggressive proximal medial peel, I was impressed with how relatively undamaged the soft tissues appeared. Complete synovectomy was performed. We dissociated the distal aspect of the femoral implant, leaving the cemented femoral stem in position. Implants were noted to be well positioned. We then proceeded to pulse lavage with 3 L followed by Bactisure for 3 L for 3 minutes, pulsed lavage for 3 L, Betadine rinse for 3 minutes, pulsed lavage for 6 L. We then proceeded to redrape and exchanged our gowns and gloves. We proceeded to then using all new instruments, placed a new distal femoral segment that was 30 mm shorter than the one that was removed. We used the same 12 mm poly that was used previously. During our approach and initial debridement, we discovered that the tibial tubercle that was earlier repaired had avulsed and had scarred laterally in the region of Gerdy tubercle. This made exposure complicated and the operation harder than normal. The large part of the patellar tendon was very healthy. There was a stump distally to repair the tendon too. We did create a trough in the proximal tibia and used three #1 PDS sutures to repair the stump of the tendon into the trough, pulling the tendon down into the trough through bone tunnels. This repair was augmented with addition of #1 PDS sutures to the distal tissue stump just distal to the trough. It was also augmented by a wire through the proximal tibia, passed through the soft tissues just above the patella to serve as reinforcement for the patellar tendon repair. We had earlier let the tourniquet down to 150 mm to get any bleeders. We had placed our vancomycin and tranexamic acid at that time. Most of that was sucked out with bleeding as we gained hemostasis. We replaced our vancomycin and tranexamic acid at this time. We let the tourniquet down all the way. We proceeded to complete our medial repair using #1 PDS interrupted sutures. We then used 2-0 nylon vertical mattress sutures on the skin followed by yahaira, Steri-Strips, and compressive dressing. POSTOPERATIVE PLAN: X-rays when the patient is placed into a hip/knee/ankle/foot brace. Brace will be on the patient for 4 months, all times. No exceptions. Knee will be in slight hyperextension while in the brace. Patient can be weightbearing as tolerated. Should not be out of bed until brace is placed. Brace should be placed tomorrow. Addendum: Please add 22 modifier for this case. Much harder than normal. Multiple cultures were sent. /[id number] Riaz Saenz MD CC/AQ / CC / MODL /[id number] Electronically signed by Chantal, [facility] Conversion Handbell Choir Director Cerner at 06/16/2022 8:21 PM CDT documented in this encounter Plan of Treatment Not on file documented as of this encounter Visit Diagnoses Not on filedocumented in this encounter
--- OUTSIDE RECORDS SUMMARY | 2024-08-09 13:30 | XMS_ITS | Encounter Summary ---
Author Organization [employer] Address [address] [place] [address] Care Team Providers Care Farm Management Adviser Name Role Phone Unavailable Primary Care Provider Unavailabl e Encounter Details Date Type Department Care Team (Late st Contact Info) Description 06/21/2019 Transcribed Document [facility] [place] [facility] [place] [address] ProviderMariela MD [address] [place] [address] Social History Tobacco Use Types Packs/Day [...] Conversion Note - Historical ProviderMD - 06/21/2019 4:57 PM CDT On Going Discharge Planning Entered On: 06/21/2019 16:57 EDT Performed On: 06/21/2019 16:57 EDT by MIKE FRIEDMAN RN-Textile Bag SewerCentral Supply Supervisor Progress Note Discharge Arrangements : Patient Post-Acute Information Patient Name: SOFIA GILL Gender: Female : [birth year] Age: 79 Years No Post-Acute Placement(s) Listed No Post-Acute Service(s) Listed No Curaspan Referral(s) Listed Discharge Options Discussed with Patient : DME, Home Health, Outpatient services Barriers to Discharge Identified : Clinical Condition of Patient Barriers to Discharge Unresolved : Clinical Condition of Patient Patient Offered Choice/Affiliations Explained : No List/Info Provided Pt/Fam/Support Person : Other: N/A MIKE FRIEDMAN RN-Textile Bag Sewer - 06/21/2019 16:57 EDT Narrative Progress Note Narrative Progress Note : Sent referral to LTACH through [facility]..........faby Historical Progress Note : Was planning for AKA, now patient will undergo a total joint revision with I&D. Will continue to follow.............MIKE Adam RN-Textile Bag Sewer - 06/21/19 16:36:10 PICC line placed, Per LID, plan for custodial IV abx. Surgery scheduled for today................MIKE Adam RN-Textile Bag Sewer - 06/21/19 10:06:05 No MDR this AM with provider. Patient with low-grade fever this AM and throughout the night. LAKA was rescheduled for 06/20 for this reason. CM will continue to follow. Halima Tripathi RN-LOOSELEAF BINDER COVERER - 06/20/19 11:50:51 Patient becoming more agitated and confused, refusing to wear oxygen. Patient now on CPAP, WBC increased, BC x2 positive for group b Strep. Dr Saenz to perform AKA tomorrow morning. Will continue to follow..............MIKE Adam RN-Textile Bag Sewer - 06/19/19 11:35:19 MIKE FRIEDMAN RN-Textile Bag Sewer - 06/21/2019 16:57 EDT documented in this encounter Plan of Treatment Not on file documented as of this encounter Visit Diagnoses Not on filedocumented in this encounter
--- OUTSIDE RECORDS SUMMARY | 2024-08-09 13:30 | XMS_ITS | Encounter Summary ---
Author Organization [employer] Address [address] [place] [address] Care Team Providers Care Verification Manager Name Role Phone Unavailable Primary Care Provider Unavailabl e Encounter Details Date Type Department Care Team (Late st Contact Info) Description 06/21/2019 Transcribed Document [facility] [place] [facility] [place] [address] ProviderMariela MD [address] [place] [address] Social History Tobacco Use Types Packs/Day [...] Conversion Note - Historical ProviderMD - 06/21/2019 4:35 PM CDT On Going Discharge Planning Entered On: 06/21/2019 16:36 EDT Performed On: 06/21/2019 16:35 EDT by MIKE FRIEDMAN RN-Export Sales AssistantCyber Defense Incident Responder Progress Note Discharge Arrangements : Patient Post-Acute [...] Pt/Fam/Support Person : Other: N/A MIKE FRIEDMAN RN-Export Sales Assistant - 06/21/2019 16:35 EDT Narrative Progress Note Narrative Progress Note : Was planning for AKA, now patient will undergo a total joint revision with I&D. Will continue to follow.............faby Historical Progress Note : PICC line placed, Per LID, plan for jail IV abx. Surgery scheduled for today................MIKE Adam RN-Export Sales Assistant - 06/21/19 10:06:05 No MDR this AM with provider. Patient with low-grade fever this AM and throughout the night. COTY was rescheduled for 06/20 for this reason. CM will continue to follow. Halima Tripathi, EDDIE-CLIENT SERVICES SPECIALIST - 06/20/19 11:50:51 Patient becoming more agitated and confused, refusing to wear oxygen. Patient now on CPAP, WBC increased, BC x2 positive for group b Strep. Dr Saenz to perform AKA tomorrow morning. Will continue to follow..............MIKE Adam RN-Export Sales Assistant - 06/19/19 11:35:19 MIKE FRIEDMAN RN-Export Sales Assistant - 06/21/2019 16:35 EDT documented in this encounter Plan of Treatment Not on file documented as of this encounter Visit Diagnoses Not on filedocumented in this encounter
--- OUTSIDE RECORDS SUMMARY | 2024-08-09 13:30 | XMS_ITS | Encounter Summary ---
Author Organization [employer] Address [address] [place] [address] Care Team Providers Care Um Rn Name Role Phone Unavailable Primary Care Provider Unavailabl e Encounter Details Date Type Department Care Team (Late st Contact Info) Description 08/24/2018 Transcribed Document [facility] [place] [facility] [place] [address] ProviderMariela MD [facility] [place] [address] Social History Tobacco Use Types [...] Conversion Note - Historical ProviderMD - 08/24/2018 7:36 AM CDT Patient: SOFIA BARLOW Age: 78 Years Sex: Female : 1940 Assessment/Plan POD #2 s/p Right TKA-- Patient c/o calf, leg discomfort. Will order U/S to R/O DVT of the RLE. Incision looks appropriate without signs of drainage. Can start gentle motion today. Planning for d/c to SNF, likely tomorrow. VTE Prophylaxis - Medical Sequential Compression Device Start: 08/22/18 12:12:00 EDT, Bilateral, Length: Knee High, Continuous Order (NIMO EPPS) Subjective Pt c/o Right calf, thigh discomfort. Vital Signs T: 36.7 ??C TMIN: 36.5 ??C TMAX: 37.1 ??C HR: 81(Monitored) RR: 16 BP: 110/41 SpO2: 98% Oxygen Settings (Last) Oxygen Therapy Mode: CPAP (08/24/18 06:06:00 EDT) Oxygen Flow Rate: 2 Liter/Min (08/22/18 12:40:00 EDT) Intake & Output Totals Last 24 Hours (7a-7a) Input Total: 1871 mL Output Total: 600 mL Balance: 1271 mL Physical Exam incision clean and dry without signs of infection, ecchymosis present Mild knee swelling noted SILT throughout the [...] Normal Saline 1,000 mL, 1000 mL, IntraVENous Os-Ramu 500 + D, 1 Tab, Oral, [...] Test Result Date/Time Sodium Level 137 mmol/L 08/24/2018 04:17 EDT Potassium Level 3.9 mmol/L 08/24/2018 04:17 EDT Chloride Level 104 mmol/L 08/24/2018 04:17 EDT Carbon Dioxide Level 29 mmol/L 08/24/2018 04:17 EDT Anion Gap 8 (Low) 08/24/2018 04:17 EDT Glucose Level 103 mg/dL 08/24/2018 04:17 EDT Blood Urea Nitrogen 34 mg/dL (High) 08/24/2018 04:17 EDT Creatinine Level 1.03 mg/dL (High) 08/24/2018 04:17 EDT eGFR >60 mL/min/1.73m2 08/24/2018 04:17 EDT eGFR NonAfrican 52 mL/min/1.73m2 (Low) 08/24/2018 04:17 EDT Bun/Creatinine 33.0 (High) 08/24/2018 04:17 EDT Calcium Level 7.9 mg/dL (Low) 08/24/2018 04:17 EDT WBC 11.6 K/uL (High) 08/24/2018 04:17 EDT RBC 2.82 Million/uL (Low) 08/24/2018 04:17 EDT Hgb 9.1 Gram/dL (Low) 08/24/2018 04:17 EDT Hct 28.2 % (Low) 08/24/2018 04:17 EDT MCV 100.0 fL (High) 08/24/2018 04:17 EDT MCH 32.3 pg (High) 08/24/2018 04:17 EDT MCHC 32.3 Gram/dL 08/24/2018 04:17 EDT Platelet Count 239 K/uL 08/24/2018 04:17 EDT MPV 9.6 fL 08/24/2018 04:17 EDT RDW 13.2 % 08/24/2018 04:17 EDT Neut % 73.3 % (High) 08/24/2018 04:17 EDT Neut # 8.50 K/uL (High) 08/24/2018 04:17 EDT Lymph % 14.9 % (Low) 08/24/2018 04:17 EDT Lymph # 1.73 K/uL 08/24/2018 04:17 EDT Sioux % 11.2 % 08/24/2018 04:17 EDT Sioux # 1.30 K/uL (High) 08/24/2018 04:17 EDT Eos % 0.1 % (Low) 08/24/2018 04:17 EDT Eos # 0.01 K/uL (Low) 08/24/2018 04:17 EDT Baso % 0.2 % 08/24/2018 04:17 EDT Baso # 0.02 K/uL 08/24/2018 04:17 EDT Slide Review No 08/24/2018 04:17 EDT IG# 0 x10(3)/uL 08/24/2018 04:17 EDT IG% 0 % 08/24/2018 04:17 EDT Urine Type U CleanCatch 08/23/2018 11:55 EDT Urine Color YELLOW2 08/23/2018 11:55 EDT Urine Appearance CLEAR2 08/23/2018 11:55 EDT Urine Specific [place] 1.022 08/23/2018 11:55 EDT Urine pH Dipstick 5.0 (Low) 08/23/2018 11:55 EDT Urine Leukocyte Esterase NEGATIVE2 08/23/2018 11:55 EDT Urine Nitrite NEGATIVE2 08/23/2018 11:55 EDT Urine Protein Dipstick NEGATIVE2 08/23/2018 11:55 EDT Urine Glucose Dipstick NEGATIVE2 08/23/2018 11:55 EDT Urine Ketones Dipstick NEGATIVE2 08/23/2018 11:55 EDT Urine Urobilinogen Dipstick 0.2 08/23/2018 11:55 EDT Urine Bilirubin Dipstick NEGATIVE2 08/23/2018 11:55 EDT Urine Blood Dipstick NEGATIVE2 08/23/2018 11:55 EDT Ur RBC None Seen 08/23/2018 11:55 EDT Ur WBC 0-2 08/23/2018 11:55 EDT Ur Bacteria None Seen 08/23/2018 11:55 EDT Ur Squamous Epithelial Cells 0-2 08/23/2018 11:55 EDT documented in this encounter Plan of Treatment Not on file documented as of this encounter Visit Diagnoses Not on filedocumented in this encounter
--- OUTSIDE RECORDS SUMMARY | 2024-08-09 13:30 | XMS_ITS | Encounter Summary ---
Author Organization [email or web address] Address [address] [place] [address] Care Team Providers Care Keymodule Assembly Supervisor Name Role Phone Unavailable Primary Care Provider Unavailabl e Encounter Details Date Type Department Care Team (Late st Contact Info) Description 06/21/2019 Transcribed Document [facility] [place] [facility] [place] [address] ProviderMariela MD [address] [place] [address] Social History Tobacco Use Types Packs/Day [...] Conversion Note - Historical ProviderMD - 06/21/2019 11:30 AM CDT Peripheral Nerve Block Entered On: 06/21/2019 11:39 EDT Performed On: 06/21/2019 11:30 EDT by THIERRY GOODRICH, RN Peripheral Nerve Block Site Marked and Visible : Yes Peripheral Nerve Block Start Date/Time : 06/21/2019 11:00 EDT Verbally Confirm Pt, Site, and Procedure : Yes Site Preparation : Chlorhexidine (Hibiclens) Peripheral Nerve Block : Other: L FEMORAL AND SCIATIC Laterality : Left Peripheral Nerve Block Performed by : RAMON GRECO DO-ANS Medication Delivery Method : Single Shot Peripheral Nerve Block Assisted by : THIERRY GOODRICH, RN Ultra sound used during insertion : Yes Nerve Block Activity, Patient Tolerance : Good Peripheral Nerve Block Comment : L FEMORAL AND L SCIATIC BLOCK DONE PER DR. EPPS REQUEST. Peripheral Nerve Block End Date/Time : 06/21/2019 11:13 EDT THIERRY GOODRICH RN - 06/21/2019 11:30 EDT Electronically signed by Chantal [facility] Conversion Telegraphic Service Dispatcher Cerner at 06/16/2022 8:08 PM CDT documented in this encounter Plan of Treatment Not on file documented as of this encounter Visit Diagnoses Not on filedocumented in this encounter
--- OUTSIDE RECORDS SUMMARY | 2024-08-09 13:30 | XMS_ITS | Encounter Summary ---
Author Organization [employer] Address [address] [place] [address] Care Team Providers Care Student Financial Aid Manager Name Role Phone Unavailable Primary Care Provider Unavailabl e Encounter Details Date Type Department Care Team (Late st Contact Info) Description 06/21/2019 Transcribed Document [facility] [place] [address] [place] [address] ProviderMariela MD [address] [place] [address] Social History Tobacco Use Types Packs/Day Years [...] Historical ProviderMD - 06/21/2019 7:25 PM CDT Education-General Entered On: 06/22/2019 1:23 EDT Performed On: 06/21/2019 19:25 EDT by Reid Ramon, Rn-Charge Teaching/Learning Assessment Barriers To Learning : Acuity of Illness Individuals Taught : Patient Readiness to Learn : Cooperative Highest Level of Education : Post graduate degree(s) Baseline Knowledge of Topic : Limited Readiness to Learn : Explanation Learning Style Preferences Patient : Verbal explanation Learning Style Preferences Family : Verbal explanation Reid Ramon, Rn-Charge - 06/22/2019 1:23 EDT documented in this encounter Plan of Treatment Not on file documented as of this encounter Visit Diagnoses Not on filedocumented in this encounter
--- OUTSIDE RECORDS SUMMARY | 2024-08-09 13:30 | XMS_ITS | Encounter Summary ---
Author Organization [employer] Address [address] [place] [address] Care Team Providers Care Mold Sheet Cleaner Name Role Phone Unavailable Primary Care Provider Unavailabl e Encounter Details Date Type Department Care Team (Late st Contact Info) Description 08/26/2018 Transcribed Document [facility] [place] [facility] [place] [address] ProviderMariela MD [facility] [place] [address] Social History Tobacco Use [...] Note - Historical ProviderMD - 08/26/2018 9:00 AM CDT Pain Assessment Entered On: 08/26/2018 17:23 EDT Performed On: 08/26/2018 9:10 EDT by Nataliia Sheikh Registered Nurse Intervention Information: acetaminophen Performed by Nataliia Sheikh Registered Nurse on 08/26/2018 08:10:00 EDT acetaminophen,1000mg Oral Pain Assessment Pain Assessment : Follow-up assessment Pain Scale Goal : 3 Pain Scale Used : 0-10 Scale Pain Intervention, Drug : Medicated Pain Improved by Intervention : Yes Nataliia Sheikh Registered Nurse - 08/26/2018 17:23 EDT Pain Scale Intensity : 4 Nataliia Sheikh Registered Nurse - 08/26/2018 17:23 EDT Image 4 - Images currently included in the form version of this document have not been included in the text rendition version of the form. documented in this encounter Plan of Treatment Not on file documented as of this encounter Visit Diagnoses Not on filedocumented in this encounter
--- OUTSIDE RECORDS SUMMARY | 2024-08-09 13:30 | XMS_ITS | Encounter Summary ---
Author Organization [employer] Address [address] [place] [address] Care Team Providers Care Special Day Class Teacher Name Role Phone Unavailable Primary Care Provider Unavailabl e Encounter Details Date Type Department Care Team (Late st Contact Info) Description 08/26/2018 Transcribed Document [facility] [place] [address] [place] [address] ProviderMariela MD [address] [place] [address] Social History Tobacco Use Types Packs/Day Years [...] Conversion Note - Historical ProviderMD - 08/26/2018 2:00 AM CDT Process Safety Manager Details Entered On: 08/26/2018 0:26 EDT Performed On: 08/26/2018 2:00 EDT by Kamini Sullivan RN Order Details Transport Mode Order Detail : Wheelchair Isolation Precautions Order Detail : Standard Precautions Order Detail : N/A IV Order Detail : 1 Oxygen Order Detail : 1 Nurse Collect Order Detail : 0 Lift/Transfer : Moderate assist Central Line Order Detail : No Room Service : Appropriate Arterial Line : No Kamini Sullivan RN - 08/26/2018 0:25 EDT Electronically signed by Maureen Cornejo Conversion Technology Solutions Architect Cerner at 06/16/2022 8:15 PM CDT documented in this encounter Plan of Treatment Not on file documented as of this encounter Visit Diagnoses Not on filedocumented in this encounter
--- OUTSIDE RECORDS SUMMARY | 2024-08-09 13:30 | XMS_ITS | Encounter Summary ---
Author Organization [employer] Address [address] [place] [address] Care Team Providers Care Mathematician Research Name Role Phone Unavailable Primary Care Provider Unavailabl e Encounter Details Date Type Department Care Team (Late st Contact Info) Description 08/25/2018 Transcribed Document [facility] [place] [facility] [place] [address] ProviderMariela MD [facility] [place] [address] Social History Tobacco Use Types [...] Conversion Note - Historical ProviderMD - 08/25/2018 10:33 AM CDT On Going Discharge Planning Entered On: 08/25/2018 10:36 EDT Performed On: 08/25/2018 10:33 EDT by MARY MCGRAW Care Management-Content Coordinator Care Management Progress Note Discharge Arrangements [...] Unresolved : Clinical Condition of Patient MARY MCGRAW Care Management-Content Coordinator - 08/25/2018 10:33 EDT Narrative Progress Note Narrative Progress Note : INSURANCE AUTHORIZATION WILL NEED TO BE RE INITIATED IT HAS SINCE D/C WAS HELD DUE TO PTS CONDITION ANTICIPATE D/C ON WEDNESDAY PENDING AUTHORIZATION AND MEDICAL STABILITY MARY MCGRAW, Care Management-Content Coordinator - 08/26/2018 16:54 EDT documented in this encounter Plan of Treatment Not on file documented as of this encounter Visit Diagnoses Not on filedocumented in this encounter
--- OUTSIDE RECORDS SUMMARY | 2024-08-09 13:30 | XMS_ITS | Encounter Summary ---
Author Organization [employer] Address [address] [place] [address] Care Team Providers Care Inside Sales Lead Name Role Phone Unavailable Primary Care Provider Unavailabl e Encounter Details Date Type Department Care Team (Late st Contact Info) Description 06/21/2019 Transcribed Document [facility] [place] [facility] [place] [address] ProviderMariela MD [address] [place] [address] Social History Tobacco Use Types Packs/Day [...] Conversion Note - Historical ProviderMD - 06/21/2019 12:27 PM CDT DATE OF CONSULTATION: 06/21/2019 DIAGNOSIS: 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 HISTORY OF PRESENT ILLNESS: Ms. 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 This failed and was converted to a hinged total knee replacement at [facility]. The patient then had persistent pain because of femoral implant loosening and [place] The patient then underwent successful revision left total knee arthroplasty with a cemented distal femoral replacement. She unfortunately failed approximately 3 months postoperatively and opened her wound and avulsed her patellar tendon. These was no apparent intraarticular infection at that time despite the wound opening and the tibial tubercle avulsion that occurred. Following the repair, patient healed uneventfully and was maintained in an extended position for 3 months postoperatively. Ultimately, her repair failed and she later went on to have right total knee arthroplasty performed approximately 1 year ago. She presented 4 to 5 days ago with a history of preceding left knee pain. Aspiration was performed demonstrating 100,000 white blood cells with only 13% polys. She grew out group B streptococcus and had positive blood cultures for group B streptococcus. Infectious Disease was consulted and she has been on antibiotics. DIAGNOSTIC STUDIES: IMAGING STUDIES: Radiographic examination demonstrates cemented distal femoral replacement without evidence of loosening. Significant patellar mae. Tibial implant well positioned without loosening. PHYSICAL EXAMINATION: GENERAL: Patient is alert and oriented. EXTREMITIES: Both lower extremities have minimal erythema around the anterior aspect of the distal tibia. 5/5 with palpable pulses distally. Left knee has minimal erythema around the incision but really perceptible. There is some warmth on the left knee and right knee. Right knee flexes to 90 degrees. Minimal left knee examination was performed. 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 Knee infection with positive blood cultures and absent extensive mechanism. 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 Patient would love to save the knee if it all possible. She understands the risks of reoperation. She understands the significance of hip disarticulation. Plan is left knee revision with possible above knee amputation. This will be followed by IV antibiotics 6 weeks and oral antibiotics for life. We will carefully monitor right total knee to make sure no infection that knee. /[id number] Riaz Saenz MD CC/AQ / CC / MODL /[id number] Electronically signed by Maureen Cornejo Conversion Supervisor Phosphatic Fertilizer Cerner at 06/16/2022 8:10 PM CDT documented in this encounter Plan of Treatment Not on file documented as of this encounter Visit Diagnoses Not on filedocumented in this encounter
--- OUTSIDE RECORDS SUMMARY | 2024-08-09 13:30 | XMS_ITS | Encounter Summary ---
Author Organization [employer] Address [address] [place] [address] Care Team Providers Care Sales Representative Graphic Art Name Role Phone Unavailable Primary Care Provider Unavailabl e Encounter Details Date Type Department Care Team (Late st Contact Info) Description 06/21/2019 Transcribed Document [facility] [place] [facility] [place] [address] ProviderMariela MD [address] [place] [address] Social History Tobacco Use Types Packs/Day [...] Conversion Note - Historical ProviderMD - 06/21/2019 10:05 AM CDT On Going Discharge Planning Entered On: 06/21/2019 10:06 EDT Performed On: 06/21/2019 10:05 EDT by MIKE FRIEDMAN RN-Marriage Counselor MinisterProbation Supervisor Progress Note Discharge Arrangements : Patient [...] Pt/Fam/Support Person : Other: N/A MIKE FRIEDMAN RN-Marriage Counselor Minister - 06/21/2019 10:05 EDT Narrative Progress Note Narrative Progress Note : PICC line placed, Per LID, plan for [facility] IV abx. Surgery scheduled for today................faby Historical Progress Note : No MDR this AM with provider. Patient with low-grade fever this AM and throughout the night. COTY was rescheduled for 06/20 for this reason. CM will continue to follow. Halima Tripathi, EDDIE-BULLARD OPERATOR - 06/20/19 11:50:51 Patient becoming more agitated and confused, refusing to wear oxygen. Patient now on CPAP, WBC increased, BC x2 positive for group b Strep. Dr Saenz to perform AKA tomorrow morning. Will continue to follow..............MIKE Adam RN-Marriage Counselor Minister - 06/19/19 11:35:19 MIKE FRIEDMAN RN-Marriage Counselor Minister - 06/21/2019 10:05 EDT documented in this encounter Plan of Treatment Not on file documented as of this encounter Visit Diagnoses Not on filedocumented in this encounter
--- OUTSIDE RECORDS SUMMARY | 2024-08-09 13:30 | XMS_ITS | Encounter Summary ---
Author Organization [employer] Address [address] [place] [address] Care Team Providers Care Shield Cleaner Name Role Phone Unavailable Primary Care Provider Unavailabl e Encounter Details Date Type Department Care Team (Late st Contact Info) Description 08/25/2018 Transcribed Document [facility] [place] [facility] [place] [address] ProviderMariela MD [facility] [place] [address] Social History Tobacco Use Types [...] Conversion Note - Historical ProviderMD - 08/25/2018 3:00 PM CDT Pain Assessment Entered On: 08/25/2018 17:07 EDT Performed On: 08/25/2018 16:47 EDT by KAY ASIF RN Intervention Information: acetaminophen Performed by KAY ASIF RN on 08/25/2018 15:47:00 EDT acetaminophen,1000mg Oral Pain Assessment Pain Assessment : Follow-up assessment Pain Scale Goal : 3 Pain Scale Used : 0-10 Scale KAY ASIF RN - 08/25/2018 17:06 EDT Pain Scale Intensity : 3 KAY ASIF RN - 08/25/2018 17:06 EDT Image 4 - Images currently included in the form version of this document have not been included in the text rendition version of the form. documented in this encounter Plan of Treatment Not on file documented as of this encounter Visit Diagnoses Not on filedocumented in this encounter
--- OUTSIDE RECORDS SUMMARY | 2024-08-09 13:30 | XMS_ITS | Encounter Summary ---
Author Organization [employer] Address [address] [place] [address] Care Team Providers Care Mobile Mechanic Name Role Phone Unavailable Primary Care Provider Unavailabl e Encounter Details Date Type Department Care Team (Late st Contact Info) Description 08/25/2018 Transcribed Document [facility] [place] [facility] [place] [address] ProviderMariela MD [facility] [place] [address] Social History Tobacco Use Types [...] Conversion Note - Historical ProviderMD - 08/25/2018 12:32 PM CDT Discharge Summary, OT Entered On: 08/25/2018 12:34 EDT Performed On: 08/25/2018 12:32 EDT by EDIN DRAKE OTR/L Discharge Summary, OT Discharge Summary Comment, OT : pt to be discontinued at this time from OT due to new restrictions for pt to be in bed except to transfer to [facility] and keep RLE elevated and no knee flexion , will still need rehab when cleared to resume normal activities. nursing will be able to complete transfers to [facility] at this time. pt had met transfer goal EDIN DRAKE OTR/L - 08/25/2018 12:32 EDT documented in this encounter Plan of Treatment Not on file documented as of this encounter Visit Diagnoses Not on filedocumented in this encounter
--- OUTSIDE RECORDS SUMMARY | 2024-08-09 13:30 | XMS_ITS | Encounter Summary ---
Author Organization [employer] Address [address] [place] [address] Care Team Providers Care Leather Carver Name Role Phone Unavailable Primary Care Provider Unavailabl e Encounter Details Date Type Department Care Team (Late st Contact Info) Description 06/21/2019 Transcribed Document [facility] [place] [facility] [place] [address] ProviderMariela MD [facility] [place] [id number] Social History Tobacco Use Types Packs/Day Years [...] Conversion Note - Historical ProviderMD - 06/21/2019 10:56 AM CDT Spiritual Care Assessment Entered On: 06/21/2019 11:18 EDT Performed On: 06/21/2019 10:50 EDT by PARTHA KUMAR Chaplain-Non Cert General Information Initial Visit : Yes Referred by : Nurse Ministry Provided to : Patient Episcopal Preference : Anglican PARTHA KUMAR Chaplain-Non Cert - 06/21/2019 11:17 EDT Spiritual Assessment Spiritual Assessment Comment/Summary Points : Sy is a 79-year-old patient who requests prayer prior to surgery. Spirital Assessment Comment/Summary Report : SPIRITUAL ASSESSMENT COMMENT/SUMMARY No qualifying data available. PARTHA KUMAR Chaplain-Non Cert - 06/21/2019 11:17 EDT Interventions Emotional Support : Emotional, Empathic/Engaged listening, Feelings expressed Spiritual and Episcopal : Prayer shared PARTHA KUMAR Chaplain-Non Cert - 06/21/2019 11:17 EDT Electronically signed by Chantal, [facility] Conversion Canceling And Cutting Control Clerk Cerner at 06/16/2022 8:30 PM CDT documented in this encounter Plan of Treatment Not on file documented as of this encounter Visit Diagnoses Not on filedocumented in this encounter
--- OUTSIDE RECORDS SUMMARY | 2024-08-09 13:30 | XMS_ITS | Encounter Summary ---
Author Organization [employer] Address [address] [place] [address] Care Team Providers Care Medicine Aide Name Role Phone Unavailable Primary Care Provider Unavailabl e Encounter Details Date Type Department Care Team (Late st Contact Info) Description 06/21/2019 Transcribed Document [facility] [place] [facility] [address] ProviderMariela MD [address] [place] [address] Social History Tobacco Use Types Packs/Day [...] Conversion Note - Historical ProviderMD - 06/21/2019 6:06 PM CDT Patient: SOFIA GILL Age: 79 [...] injury Author: DONNA DRIVER MD-INT Basic Information had trouble breathing earlier this morning around 4 AM which improved after she had 1 mg of Bumex IV ??1 Taken to surgery today and had I&D, debridement and washout and poly-exchange by Dr. Saenz ???After surgery patient was awake alert cooperative and under no acute distress ???Patient needs long-term IV antibiotics ???Renal function back to normal i.e. 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 Review of Systems Constitutional: No fever, No [...] of breath. Phentermine- Unknown reaction. Sulfa drugs- Itching. Current medications: Medications (52) Active Scheduled: (21) #NaCl 0.9% *FLUSH* inj 10 mL 10 mL, IntraCATHeter, Q12H calcium 500 mg/vit D 200 int unit tab 1 Tab, Oral, BID ceFAZolin/D5w 2 Gram 50 mL, IV Piggyback, 1-Time cefTRIAXone + NaCl 0.9% 50 mL 2 Gram, IV Piggyback, [id number] cyanocobalamin 1,000 mcg tab 5,000 mcg 5 Tab, Oral, Daily docusate sodium 100 mg cap 100 mg 1 Cap, Oral, BID DULoxetine DR 60 mg cap 60 mg 1 Cap, Oral, Daily heparin 5,000 units/1 mL inj 5,000 Units 1 mL, SubCutaneous, Q8H levothyroxine 100 mcg tab 100 mcg 1 Tab, Oral, Daily lidocaine 1% *PF* inj 5 mL 10 mL, IntraArtiCULAR, 1-Time lidocaine 1% w/epi 1:100,000 inj 20 mL 10 mL, Miscellaneous, 1-Time lidocaine 2% inj 5 mL 3 mL, IntraDermal, 1-Time lisinopril 10 mg tab 10 mg 1 Tab, Oral, Daily loratadine 10 mg tab 10 mg 1 Tab, Oral, Daily midazolam 2 mg/2 mL inj *PF* 1 mg 1 mL, IV Push, 1-Time polyethylene glycol 3350 pwd 17 g pkt 17 Gram 1 Packet, Oral, Daily ropivacaine 0.5% inj 30 mL 30 mL, IntraCATHeter, 1-Time rosuvastatin 10 mg tab 10 mg 1 Tab, Oral, At Bedtime saccharomyces boulardii 250 mg cap 250 mg 1 Cap, Oral, Daily tranexamic acid 1,000 mg + syringe 1 Each + NaCl 0.9% 20 mL 1,000 mg 10 mL, Topical, 1-Time ubiquinone 50 mg Cap 50 mg 1 Cap, Oral, Daily Continuous: (0) PRN: (31) acetaminophen 325 mg tab 650 mg 2 [...] tab 25 mg 1 Tab, Oral, Q4H fentaNYL 100 mcg/2 mL inj 25 mcg 0.5 mL, IV Push, Q5Min fentaNYL 100 mcg/2 mL inj 50 mcg 1 mL, IV Push, Q5Min fluticasone 0.05% nasal spray 2 Ubly, Nostrils Both, BID gabapentin 300 mg cap 300 mg 1 Cap, Oral, At Bedtime HYDROmorphone 1 mg/1 mL inj 0.5 mg 0.5 mL, IV Push, Q2H HYDROmorphone 1 mg/1 mL inj 0.5 mg 0.5 mL, IV Push, Q10Min LORazepam 2 mg/mL inj 0.5 mg 0.25 mL, IntraMuscular, Q4H magnesium hydroxide 8% liq 30 mL 30 mL, Oral, Daily magnesium sulfate 2 Gram 50 mL, IV Piggyback, Daily magnesium sulfate 2 Gram 50 mL, IV Piggyback, Q2H metoclopramide 10 mg/2 mL inj 5 mg 1 mL, IV Push, Q6H ondansetron 4 mg/2 mL inj 4 mg 2 mL, IV Push, Q6H potassium chloride 10 mEq 100 mL, IV [...] Sleep apnea Physical Examination VS/Measurements Vital Measurements 06/21/2019 16:37 EDT Systolic Blood Pressure 120 mmHg Diastolic Blood Pressure 59 mmHg LOW Mean Arterial Pressure (MAP)-BMDI 85 Heart Rate Monitored 79 bpm Oxygen Saturation 95 % Oxygen Therapy Mode Room air 06/21/2019 16:29 EDT Systolic Blood Pressure 118 mmHg Diastolic Blood Pressure 55 mmHg LOW Heart Rate Monitored 80 bpm 06/21/2019 16:25 EDT Systolic Blood Pressure 118 mmHg Diastolic Blood Pressure 55 mmHg LOW Temperature Source Temporal artery scanning Temperature Mode Fahrenheit Temperature, Fahrenheit 98.1 Deg F Clinical Temperature, C 36.7 Deg C Heart Rate Monitored 78 bpm Respiratory Rate 18 Breaths/Min Oxygen Saturation 94 % Oxygen Therapy Mode Room air 06/21/2019 16:22 EDT Systolic Blood Pressure 120 mmHg Diastolic Blood Pressure 58 mmHg LOW Mean Arterial Pressure (MAP)-BMDI 82 Heart Rate Monitored 79 bpm Respiratory Rate 18 Breaths/Min Oxygen Saturation 99 % Oxygen Therapy Mode Nasal cannula Oxygen [...] Review / Management Results review: All Results 06/21/2019 15:53 EDT Hct 26.3 % LOW 06/21/2019 4:41 EDT pH Art 7.43 pCO2 [...] 34.8 HI Calcium Level 7.9 mg/dL LOW 06/20/2019 3:05 EDT Sodium Level 135 mmol/L [...] % LOW ALYC # 1 K/uL NA Dixon Percent Man 7 % HI RBC Morphology Normal Toxic Granulation 2+ Platelet Ct Estimate Adequate Slide Review Add Diff Man . Condition: Stable. Impression and Plan Diagnosis [...] on IV antibiotics as recommended by infectious disease and wound care. PT/OT. Fall risk precautions. Stress ulcer prophylaxis. Close monitoring fluid and electrolytes. DVT prophylaxis.. Orders Order Profile (Selected) Inpatient Orders Ordered (Scheduled) CBC w/ Auto Diff: Specimen Type: Blood, AM Draw collect, 06/22/19 4:00:00 EDT, 1-Time, Stop: 06/22/19 4:00:00 EDT, Lab Collect CMP Comprehensive Metabolic Panel: Specimen Type: Blood, AM Draw collect, 06/22/19 4:00:00 EDT, 1-Time, Stop: 06/22/19 4:00:00 EDT, Lab Collect. Electronically signed by Maureen Cornejo Conversion Blower Feeder Dyed Raw Stock Cerner at 06/16/2022 8:02 PM CDT documented in this encounter Plan of Treatment Not on file documented as of this encounter Visit Diagnoses Not on filedocumented in this encounter
--- OUTSIDE RECORDS SUMMARY | 2024-08-09 13:30 | XMS_ITS | Encounter Summary ---
Author Organization [email or web address] Address [address] [place] [address] Care Team Providers Care Edger Liner Name Role Phone Unavailable Primary Care Provider Unavailabl e Encounter Details Date Type Department Care Team (Late st Contact Info) Description 08/25/2018 Transcribed Document [facility] Family Medicine [address] [place] [address] ProviderMariela MD [address] [place] [id number] Social History Tobacco Use Types Packs/Day Years [...] Conversion Note - Historical ProviderMD - 08/25/2018 5:00 PM CDT Chart Check - Review Order Profile Entered On: 08/25/2018 17:07 EDT Performed On: 08/25/2018 17:00 EDT by KAY ASIF RN Chart Check Powerplans Initiated/Discontinued as Appropriate : Yes All Active Orders Reviewed : Yes KAY ASIF RN - 08/25/2018 17:07 EDT documented in this encounter Plan of Treatment Not on file documented as of this encounter Visit Diagnoses Not on filedocumented in this encounter
--- OUTSIDE RECORDS SUMMARY | 2024-08-09 13:30 | XMS_ITS | Encounter Summary ---
Author Organization [employer] Address [address] [place] [address] Care Team Providers Care Medical Record Librarian Name Role Phone Unavailable Primary Care Provider Unavailabl e Encounter Details Date Type Department Care Team (Late st Contact Info) Description 06/21/2019 Transcribed Document [facility] [place] [facility] [place] [address] ProviderMariela MD [address] [place] [address] Social History Tobacco Use Types Packs/Day Years [...] Conversion Note - Historical ProviderMD - 06/21/2019 8:58 AM CDT Attempt to Treat, OT Entered On: 06/21/2019 13:11 EDT Performed On: 06/21/2019 8:58 EDT by FELTON RUSH OTR/Bartolo Attempt to Treat Unable to Treat Due To : Acuity of Illness, Patient on hold, Patient Unavailable, Pending order clarification Inability to Treat Comment : 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 FELTON RUSH OTR/Bartolo - 06/21/2019 13:10 EDT Electronically signed by Chantal [facility] Conversion Sugar Plantation Manager Cerner at 06/16/2022 8:10 PM CDT documented in this encounter Plan of Treatment Not on file documented as of this encounter Visit Diagnoses Not on filedocumented in this encounter
--- OUTSIDE RECORDS SUMMARY | 2024-08-09 13:30 | XMS_ITS | Encounter Summary ---
Author Organization [employer] Address [address] [place] [address] Care Team Providers Care Automobile Brakes Bonder Name Role Phone Unavailable Primary Care Provider Unavailabl e Encounter Details Date Type Department Care Team (Late st Contact Info) Description 08/25/2018 Transcribed Document [facility] [place] Family Medicine [address] [place] [address] ProviderMariela MD [address] [place] [address] Social History Tobacco Use Types Packs/Day Years [...] Conversion Note - Historical ProviderMD - 08/25/2018 9:00 PM CDT Pain Assessment Entered On: 08/25/2018 22:33 EDT Performed On: 08/25/2018 21:25 EDT by Kamini Sullivan RN Intervention Information: acetaminophen Performed by Kamini Sullivan RN on 08/25/2018 20:25:00 EDT acetaminophen,1000mg Oral Pain Assessment Pain Assessment : Follow-up assessment Pain Scale Goal : 3 Pain Intervention, Drug : Medicated Pain Improved by Intervention : Yes Kamini Sullivan RN - 08/25/2018 22:33 EDT Electronically signed by Maureen Cornejo Conversion Senior Professional Services Consultant Cerner at 06/16/2022 8:27 PM CDT documented in this encounter Plan of Treatment Not on file documented as of this encounter Visit Diagnoses Not on filedocumented in this encounter
--- OUTSIDE RECORDS SUMMARY | 2024-08-09 13:30 | XMS_ITS | Encounter Summary ---
Author Organization [employer] Address [address] [place] [address] Care Team Providers Care Software Programmer Name Role Phone Unavailable Primary Care Provider Unavailabl e Encounter Details Date Type Department Care Team (Late st Contact Info) Description 06/21/2019 Transcribed Document [facility] [place] [facility] [place] [address] ProviderMariela MD [facility] [place] [address] Social History Tobacco Use Types [...] Conversion Note - Historical ProviderMD - 06/21/2019 9:00 PM CDT Pain Assessment Entered On: 06/21/2019 23:14 EDT Performed On: 06/21/2019 21:59 EDT by Reid Ramon Rn-Charge Intervention Information: acetaminophen Performed by Reid Ramon Rn-Charge on 06/21/2019 20:59:00 EDT acetaminophen,1000mg Oral Pain Assessment Pain Assessment : Follow-up assessment Pain Scale Goal : 3 Pain Scale Used : 0-10 Scale Reid Ramon Rn-Charge - 06/21/2019 23:14 EDT Pain Scale Intensity : 0 Reid Ramon Rn-Charge - 06/21/2019 23:14 EDT Image 4 - Images currently included in the form version of this document have not been included in the text rendition version of the form. Electronically signed by Maureen Cornejo Conversion Career Development Coordinator Cerner at 06/16/2022 8:13 PM CDT documented in this encounter Plan of Treatment Not on file documented as of this encounter Visit Diagnoses Not on filedocumented in this encounter
--- OUTSIDE RECORDS SUMMARY | 2024-08-09 13:30 | XMS_ITS | Encounter Summary ---
Author Organization [employer] Address [address] [place] [address] Care Team Providers Care Business Account Executive Name Role Phone Unavailable Primary Care Provider Unavailabl e Encounter Details Date Type Department Care Team (Late st Contact Info) Description 08/25/2018 Transcribed Document [facility] [place] [facility] [place] [address] ProviderMariela MD [address] [place], [place] [phone] Social History Tobacco Use Types Packs/Day Years [...] Conversion Note - Historical ProviderMD - 08/25/2018 4:46 PM CDT Discharge Summary, PT Entered On: 08/25/2018 16:49 EDT Performed On: 08/25/2018 16:46 EDT by CHAITANYA SIMON, PT Discharge Summary Reason for Discharge : All goals met Discharge Summary Comment, PT : At time of discharge from PT services, pt had met 2/[address] Saenz placed her on bedrest and pt is only allowed to perform isometric exercises at this time. HAND TURNER instructed pt in isometrics and issued written instructions. Nursing will take care of stand-pivot transfers to [facility] only for activity. CHAITANYA SIMON, PT - 08/25/2018 16:46 EDT Peat Shredder Tender Goals Other PT LTG Grid Goal #1 [...] 08/29/2018 EDT Goal Status : Goal met Goal met Discontinue Date Met : 08/24/2018 EDT 08/25/2018 EDT Comment : Bleeding during first rep of knee flexion. Pt going to rehab CHAITANYA SIMON, PT - 08/25/2018 16:46 EDT CHAITANYA SIMON, PT - 08/25/2018 16:46 EDT CHAITANYA SIMON, PT - 08/25/2018 16:46 EDT documented in this encounter Plan of Treatment Not on file documented as of this encounter Visit Diagnoses Not on filedocumented in this encounter
--- OUTSIDE RECORDS SUMMARY | 2024-08-09 13:30 | XMS_ITS | Encounter Summary ---
Author Organization [employer] Address [address] [place] [address] Care Team Providers Care Surveyor Oil Well Directional Name Role Phone Unavailable Primary Care Provider Unavailabl e Encounter Details Date Type Department Care Team (Late st Contact Info) Description 08/24/2018 Transcribed Document [facility] [place] [facility] [place] [address] ProviderMariela MD [address] [place] [address] Social History Tobacco Use Types Packs/Day [...] Note - Historical ProviderMD - 08/24/2018 9:00 AM CDT Pain Assessment Entered On: 08/24/2018 14:18 EDT Performed On: 08/24/2018 10:36 EDT by Vianca Morgan RN Intervention Information: acetaminophen Performed by Vianca Morgan RN on 08/24/2018 09:36:00 EDT acetaminophen,1000mg Oral Pain Assessment Pain Assessment : Follow-up assessment Pain Scale Goal : 3 Pain Scale Used : 0-10 Scale Vianca Morgan RN - 08/24/2018 14:17 EDT Pain Scale Intensity : 2 Vianca Morgan RN - 08/24/2018 14:17 EDT Image 4 - Images currently included in the form version of this document have not been included in the text rendition version of the form. Electronically signed by Maureen Cornejo Conversion Employee Wellness/Fitness Coordinator Cerbryce at 06/16/2022 8:14 PM CDT documented in this encounter Plan of Treatment Not on file documented as of this encounter Visit Diagnoses Not on filedocumented in this encounter
--- OUTSIDE RECORDS SUMMARY | 2024-08-09 13:30 | XMS_ITS | Encounter Summary ---
Author Organization [employer] Address [address] [place] [address] Care Team Providers Care Stitcher Operator Name Role Phone Unavailable Primary Care Provider Unavailabl e Encounter Details Date Type Department Care Team (Late st Contact Info) Description 06/21/2019 Transcribed Document [facility] [place] Family Medicine [address] [place] [address] ProviderMariela MD [address] [place] [address] Social History Tobacco Use Types Packs/Day Years [...] 7:25 PM CDT Pain Assessment Entered On: 06/23/2019 4:15 EDT Performed On: 06/23/2019 4:25 EDT by Nemo Macario, RN Intervention Information: oxyCODONE Performed by Nicole Nicole RN on 06/23/2019 03:25:00 EDT oxyCODONE,15mg Oral,Pain (Moderate 4-6) Pain Assessment Pain Assessment : Follow-up assessment Pain Scale Goal : 3 Pain Comment : pt appears to be asleep Nemo Macario, RN - 06/23/2019 4:15 EDT Electronically signed by Chantal [facility] Conversion Concrete Conveyor Operator Cerner at 06/16/2022 8:26 PM CDT documented in this encounter Plan of Treatment Not on file documented as of this encounter Visit Diagnoses Not on filedocumented in this encounter
--- OUTSIDE RECORDS SUMMARY | 2024-08-09 13:30 | XMS_ITS | Encounter Summary ---
Author Organization [employer] Address [address] [place] [address] Care Team Providers Care Urgent Care Technician Name Role Phone Unavailable Primary Care Provider Unavailabl e Encounter Details Date Type Department Care Team (Late st Contact Info) Description 08/25/2018 Transcribed Document [facility] [place] [address] [place] [address] ProviderMariela MD [address] [place], [place] [address] Social History Tobacco Use Types Packs/Day Years [...] Note - Historical ProviderMD - 08/25/2018 5:00 AM CDT Chart Check - Review Order Profile Entered On: 08/25/2018 4:42 EDT Performed On: 08/25/2018 5:00 EDT by Nishi Osuna RN Chart Check Powerplans Initiated/Discontinued as Appropriate : Yes All Active Orders Reviewed : Yes Nishi Osuna RN - 08/25/2018 4:42 EDT documented in this encounter Plan of Treatment Not on file documented as of this encounter Visit Diagnoses Not on filedocumented in this encounter
--- OUTSIDE RECORDS SUMMARY | 2024-08-09 13:30 | XMS_ITS | Encounter Summary ---
Author Organization [employer] Address [address] [place] [address] Care Team Providers Care Consulting Services Manager Name Role Phone Unavailable Primary Care Provider Unavailabl e Encounter Details Date Type Department Care Team (Late st Contact Info) Description 06/21/2019 Transcribed Document [facility] [place] Family Medicine [address] [place] [address] ProviderMariela MD [facility] [place] [address] Social History Tobacco Use Types Packs/Day Years [...] Conversion Note - Historical ProviderMD - 06/21/2019 9:23 AM CDT Consult Phone Call Documentation Entered On: 06/21/2019 9:57 EDT Performed On: 06/21/2019 9:23 EDT by NANDO CHEN Phone Call for Consults Consult Phone Call/Page Attempt : First call Physician Requested for Consult : MARCI BRAGA MD-ORT Physician Covering for Consult : MARCI BRAGA MD-ORT Date and Time Call Returned : 06/21/2019 9:57 EDT Physician Returning Call : MARCI BRAGA MD-ORT TYE, CHERYL - 06/21/2019 9:57 EDT Electronically signed by Chantal [facility] Conversion Magnetic Prospector Cerner at 06/16/2022 8:06 PM CDT documented in this encounter Plan of Treatment Not on file documented as of this encounter Visit Diagnoses Not on filedocumented in this encounter
--- OUTSIDE RECORDS SUMMARY | 2024-08-09 13:30 | XMS_ITS | Encounter Summary ---
Author Organization [employer] Address [address] [place] [address] Care Team Providers Care Tea Leaf Reader Name Role Phone Unavailable Primary Care Provider Unavailabl e Encounter Details Date Type Department Care Team (Late st Contact Info) Description 06/21/2019 Transcribed Document [facility] [place] Family Medicine [address] [place] [address] ProviderMariela MD [address] [place] [address] Social History Tobacco Use Types Packs/Day Years [...] Conversion Note - Historical ProviderMD - 06/21/2019 2:00 AM CDT Soil Technician Details Entered On: 06/21/2019 0:38 EDT Performed On: 06/21/2019 2:00 EDT by Reid Ramon, Rn-Charge Order [...] Line : No Reid Ramon Rn-Charge - 06/21/2019 0:37 EDT documented in this encounter Plan of Treatment Not on file documented as of this encounter Visit Diagnoses Not on filedocumented in this encounter
--- OUTSIDE RECORDS SUMMARY | 2024-08-09 13:30 | XMS_ITS | Encounter Summary ---
Author Organization [employer] Address [address] [place] [address] Care Team Providers Care Glove Parts Inspector Name Role Phone Unavailable Primary Care Provider Unavailabl e Encounter Details Date Type Department Care Team (Late st Contact Info) Description 06/21/2019 Transcribed Document [facility] [place] Family Medicine [address] [place] [address] ProviderMariela MD [address] [place] [address] Social History Tobacco Use Types [...] Conversion Note - Historical ProviderMD - 06/21/2019 12:41 PM CDT [facility] [place] Main OR PACU Summary Primary Physician: NIMO EPPS MD-ORT Finalized Date/Time: 06/21/19 16:38:57 Pt. Name: SOFIA GILL Eufemia Dobbs/Sex: 1940 Female Med Rec #: [id number] Physician: DONNA DRIVER MD-INT Financial #: [id number] Pt. Type: I Room/Bed: [facility]/1 Admit/Disch: 06/16/19 21:08:00 - Institution: [facility] Main OR PACU Case Times Entry 1 In PACU I 06/21/19 15:43:00 Ready for PACU 06/21/19 16:38:00 Discharge Discharge from PACU 06/21/19 16:38:00 I Last Modified By: OZZIE PARSON RN 06/21/19 16:38:34 Finalized By: OZZIE PARSON, RN Document Signatures Signed By: OZZIE PARSON RN 06/21/19 16:38 Electronically signed by Chantal [facility] Conversion Program Development Specialist Cerner at 06/16/2022 8:10 PM CDT documented in this encounter Plan of Treatment Not on file documented as of this encounter Visit Diagnoses Not on filedocumented in this encounter
[2024-08-09] MEDS: ZOLEDRONIC ACID/MANNITOL-WATER 5 MG/100 ML PGGYBK.BTL 400 MG IV (13:31)
--- OUTSIDE RECORDS SUMMARY | 2024-08-09 13:31 | XMS_ITS | Encounter Summary ---
Author Organization [facility] Address [address] [place] [address] Care Team Providers Care Diamond Die Polisher Name Role Phone Unavailable Primary Care Provider Unavailabl e Encounter Details Date Type Department Care Team (Late st Contact Info) Description 06/21/2019 Transcribed Document [facility] [place] Family Medicine [facility] [address] ProviderMariela MD [facility] [place] [address] Social History Tobacco Use [...] Conversion Note - Historical ProviderMD - 06/21/2019 10:27 AM CDT Pre Procedure Adult Entered On: 06/21/2019 10:56 EDT Performed On: 06/21/2019 10:27 EDT by THIERRY GOODRICH RN Height and Weight, Clinical Dosing Height Source : Stated Height Entry Format : [place] Height, Feet : 4 ft(Converted to: 122 cm, 48 Inch) Height, Inches : 11 Inch(Converted to: 0 ft 11 Inch, 27.94 cm) Clinical Height : 149.86 cm Weight Source : Bed scale Weight Entry Format : [place] Clinical Dosing Weight : 91.82 kg Weight, Pounds : 202 lb Body Surface Area (BSA) : 1.85 m2 Body Mass Index : 40.9 kg/m2 (>HHI) Jeremiah Body Weight : 43 kg THIERRY GOODRICH RN - 06/21/2019 10:27 EDT Health Histories Smoking Status : Never (less than 100 in lifetime; none in last 30 days) Smokeless Tobacco Status : Never THIERRY GOODRICH RN - 06/21/2019 10:27 EDT Social History (As Of: 06/21/2019 10:56:16 EDT) Tobacco: Smoking Status Never smoker. Used Tobacco, but Quit No. (Last Updated: 10/16/2016 11:53:46 EDT by RUI EMMANUEL, RN) Alcohol: Alcohol Use History No. (Last Updated: 10/16/2016 11:53:51 EDT by RUI EMMANUEL, RN) Substance Abuse: Drug Use Hx: No. Use in Last 12 Months: No. (Last Updated: 10/16/2016 11:53:56 EDT by RUI EMMANUEL, EDDIE) Nutrition/Health: Regular, Caffeine intake amount: occassional. (Last [...] by RUI EMMANUEL, EDDIE) Infectious Disease History COVID19 Screening : No Experiencing Infectious Disease Symptoms : No symptoms Physical contact outside [place] in the last 30 days : No Infectious Disease History : Chicken pox/Shingles, Measles Tuberculosis Symptoms : None THIERRY GOODRICH RN - 06/21/2019 10:27 EDT Anesthesia/Transfusion History Family History of Anesthesia Reaction : Prior transfusion without reaction Blood Transfusion Acceptable to Patient : Yes Transfusion History : Prior anesthesia without reaction Family History of Anesthesia Reaction : None THIERRY GOODRICH RN - 06/21/2019 11:52 EDT Functional Assessment Living Situation : Home Patient Lives With : Alone Persons Assisting Patient at Home : Alone Current Daily Living Assistance : Transportation Mobility Assistance Prior to Admission : Independent Current Home Treatments : CPAP Home Equipment : CPAP unit, Walker THIERRY GOODRICH RN - 06/21/2019 11:52 EDT [place] Suicide Severity Rating Scale (C-SSRS) CSSRS Past Month Wish to be : No CSSRS Past Month Suicidal Thoughts : No CSSRS Lifetime Suicide Behavior : No Suicide Severity Rating Score : 0 Suicide Severity Rating : No Additional Care Required at this time THIERRY GOODRICH RN - 06/21/2019 11:52 EDT Psychosocial History Do You Have a History of the Following? : Patient denies history Currently in Unsafe Situation : No THIERRY GOODRICH RN - 06/21/2019 11:52 EDT Advance Directive Patient has Advance Directive *Q : No, patient refuses Advance Directive information THIERRY GOODRICH RN - 06/21/2019 11:52 EDT Spiritual/Cultural Needs Any Spiritual/Cultural Needs or Requests : Yes Episcopalian Preference : Cheondoism THIERRY GOODRICH RN - 06/21/2019 10:27 EDT Vital Measurements Temperature Source : Temporal artery scanning Temperature Mode : Fahrenheit Temperature, Fahrenheit : 99.9 Deg F (HI) Clinical Temperature, C : 37.7 Deg C Pulse Method : Pulse Oximetry Pulse Source : Radial, Left Peripheral Pulse Rate : 104 bpm (HI) Pulse Rhythm : Regular Respiratory Rate : 20 Breaths/Min Blood Pressure Location : Arm, right upper Blood Pressure Source : Non-Invasive BP Device Blood Pressure Position : Side, Right Systolic Blood Pressure : 133 mmHg Diastolic Blood Pressure : 60 mmHg Oxygen Saturation : 99 % Oxygen Therapy Mode : Room air THIERRY GOODRICH RN - 06/21/2019 11:52 EDT Sleep Apnea Risk Assmt BiPAP/CPAP Ordered for Home Use : Yes Hx of Obstructive Sleep Apnea Diagnosis : Yes BiPAP/CPAP Used at Home : Yes Age over 50 Years Old : Yes Gender Male : No THIERRY GOODRICH RN - 06/21/2019 11:52 EDT Oxygen Therapy Oxygen Therapy Mode : Room air THIERRY GOODRICH RN - 06/21/2019 10:27 EDT Pain Assessment Pain Assessment : Initial assessment Pain Scale Goal : 3 Pain Scale Used : 0-10 Scale THIERRY GOODRICH RN - 06/21/2019 10:27 EDT Valuables and Belongings Valuables and Belongings [...] With patient, Declines to send to security/safe THIERRY GOODRICH RN - 06/21/2019 11:52 EDT Pain Scale Intensity : 0 THIERRY GOODRICH RN - 06/21/2019 10:27 EDT Image 4 - Images currently included in the form version of this document have not been included in the text rendition version of the form. [place] Coma Nazia Best Motor Response : Obey commands [place] Best Verbal Response : Oriented Nazia Eye Opening Response : Spontaneous [place] Coma Score : 15 THIERRY GOODRICH RN - 06/21/2019 10:27 EDT documented in this encounter Plan of Treatment Not on file documented as of this encounter Visit Diagnoses Not on filedocumented in this encounter
--- OUTSIDE RECORDS SUMMARY | 2024-08-09 13:31 | XMS_ITS | Encounter Summary ---
Author Organization [employer] Address [address] [place] [address] Care Team Providers Care Technician Anatomic Pathology Name Role Phone Unavailable Primary Care Provider Unavailabl e Encounter Details Date Type Department Care Team (Late st Contact Info) Description 06/21/2019 Transcribed Document [facility] [place] Family Medicine [address] [place] [address] ProviderMariela MD [address] [place] [address] Social History Tobacco Use Types [...] Conversion Note - Historical ProviderMD - 06/21/2019 8:50 AM CDT [facility] Main OR PreOp Summary Primary Physician: NIMO EPPS MD-ORT Finalized Date/Time: 06/21/19 11:49:12 Pt. Name: SOFIA GILL Eufemia /Sex: 1940 Female Med Rec #: [id number] Physician: DONNA DRIVER MD-INT Financial #: [id number] Pt. Type: I Room/Bed: 509/1 Admit/Disch: 06/16/19 21:08:00 - Institution: [facility] [place] PreOp Case Times Entry 1 In Preop 06/21/19 09:15:00 Ready for Holding n/a Room Patient Ready for 06/21/19 10:20:00 Surgery Patient Out of Preop 06/21/19 11:41:00 Patient Out of n/a Holding Room Last Modified By: OZZIE PARSON RN 06/21/19 11:49:08 SJTita PreOp Case Times Audit 06/21/19 11:49:08 Professor Of Biological Sciences: HORACIO Modifier: [id number] <+> 1 Patient Out of Preop Finalized By: OZZIE PARSON, RN Document Signatures Signed By: OZZIE PARSON RN 06/21/19 11:49 Electronically signed by Chantal [facility] Conversion Network Programmer Cerner at 06/16/2022 8:26 PM CDT documented in this encounter Plan of Treatment Not on file documented as of this encounter Visit Diagnoses Not on filedocumented in this encounter
--- OUTSIDE RECORDS SUMMARY | 2024-08-09 13:31 | XMS_ITS | Encounter Summary ---
Author Organization [facility] [employer] Address [address] [place] [address] Care Team Providers Care Bathhouse Keeper Name Role Phone Unavailable Primary Care Provider Unavailabl e Encounter Details Date Type Department Care Team (Late st Contact Info) Description 08/25/2018 Transcribed Document [facility] [place] Family Medicine [facility] [place] [address] ProviderMariela MD [facility] [place] [address] Social History Tobacco Use Types [...] Note - Historical ProviderMD - 08/25/2018 9:00 AM CDT Pain Assessment Entered On: 08/25/2018 11:59 EDT Performed On: 08/25/2018 9:55 EDT by KAY ASIF RN Intervention Information: acetaminophen Performed by KAY ASIF RN on 08/25/2018 08:55:00 EDT acetaminophen,1000mg Oral Pain Assessment Pain Assessment : Follow-up assessment Pain Scale Goal : 3 Pain Scale Used : 0-10 Scale KAY ASIF RN - 08/25/2018 11:58 EDT Pain Scale Intensity : 2 KAY ASIF RN - 08/25/2018 11:58 EDT Image 4 - Images currently included in the form version of this document have not been included in the text rendition version of the form. documented in this encounter Plan of Treatment Not on file documented as of this encounter Visit Diagnoses Not on filedocumented in this encounter
--- OUTSIDE RECORDS SUMMARY | 2024-08-09 13:31 | XMS_ITS | Encounter Summary ---
Author Organization [employer] [facility] [employer] Address [address] [place] [address] Care Team Providers Care Solar Sales Associate Name Role Phone Unavailable Primary Care Provider Unavailabl e Encounter Details Date Type Department Care Team (Late st Contact Info) Description 08/25/2018 Transcribed Document [facility] [place] Family Medicine [address] [place] [address] ProviderMariela MD [address] [place] [address] Social History Tobacco Use Types Packs/Day Years [...] Conversion Note - Historical ProviderMD - 08/25/2018 2:00 AM CDT Biztalk Administrator Details Entered On: 08/25/2018 1:31 EDT Performed On: 08/25/2018 2:00 EDT by Nisih Osuna RN Order Details Transport Mode Order Detail : Wheelchair Isolation Precautions Order Detail : Standard Precautions Order Detail : N/A IV Order Detail : 1 Oxygen Order Detail : 1 Nurse Collect Order Detail : 0 Lift/Transfer : Moderate assist Central Line Order Detail : No Room Service : Not Appropriate Arterial Line : No Nishi Osuna RN - 08/25/2018 1:31 EDT Electronically signed by Maureen Cornejo Conversion Welding Machine Operator Plasma Arc Cerner at 06/16/2022 8:25 PM CDT documented in this encounter Plan of Treatment Not on file documented as of this encounter Visit Diagnoses Not on filedocumented in this encounter
--- OUTSIDE RECORDS SUMMARY | 2024-08-09 13:31 | XMS_ITS | Encounter Summary ---
Author Organization [employer] [facility] [employer] Address [address] [place] [address] Care Team Providers Care Automatic Door Mechanic Name Role Phone Unavailable Primary Care Provider Unavailabl e Encounter Details Date Type Department Care Team (Late st Contact Info) Description 06/21/2019 Transcribed Document [facility] [place] [address] [place] [address] ProviderMariela MD [address] [place] [address] Social History Tobacco Use Types Packs/Day Years [...] Historical ProviderMD - 06/21/2019 7:25 PM CDT Education-(VTE) / (DVT) Entered On: 06/21/2019 23:12 EDT Performed On: 06/21/2019 19:25 EDT by Reid Ramon, Rn-Charge Teaching/Learning Assessment Barriers To Learning : None evident Individuals Taught : Patient Readiness to Learn : Cooperative Highest Level of Education : Post graduate degree(s) Readiness to Learn : Explanation Learning Style Preferences Patient : Verbal explanation Learning Style Preferences Family : Verbal explanation Reid Ramon Rn-Charge - 06/21/2019 23:11 EDT documented in this encounter Plan of Treatment Not on file documented as of this encounter Visit Diagnoses Not on filedocumented in this encounter
--- OUTSIDE RECORDS SUMMARY | 2024-08-09 13:31 | XMS_ITS | Encounter Summary ---
Author Organization [employer] Address [address] [place] [address] Care Team Providers Care Dot Compliance Coordinator Name Role Phone Unavailable Primary Care Provider Unavailabl e Encounter Details Date Type Department Care Team (Late st Contact Info) Description 06/21/2019 Transcribed Document [facility] [place] Family Medicine [address] [place] [address] ProviderMariela MD [address] [place] [address] Social History Tobacco Use Types [...] Conversion Note - Historical ProviderMD - 06/21/2019 11:29 AM CDT Time Out Documentation Entered On: 06/21/2019 11:30 EDT Performed On: 06/21/2019 11:29 EDT by THIERRY GOODRICH RN Time Out Documentation Time Out Pause Time : 06/21/2019 10:57 EDT All Activity Suspended : Yes Team Verbally Confirms Information : Correct patient identity, Correct side and site are marked, Consent form is present and accurate, Agreement on the procedure to be done, Correct patient position THIERRY GOODRICH, RN - 06/21/2019 11:29 EDT Electronically signed by Maureen Cornejo Conversion Customs And Border Protection Inspector Cerner at 06/16/2022 8:16 PM CDT documented in this encounter Plan of Treatment Not on file documented as of this encounter Visit Diagnoses Not on filedocumented in this encounter
--- OUTSIDE RECORDS SUMMARY | 2024-08-09 13:31 | XMS_ITS | Encounter Summary ---
Author Organization [employer] Address [address] [place] [id number] Care Team Providers Care International Trade Analyst Name Role Phone Unavailable Primary Care Provider Unavailabl e Encounter Details Date Type Department Care Team (Late st Contact Info) Description 06/21/2019 Transcribed Document [facility] [place] [address] ProviderMariela [place] [address] Social History Tobacco Use Types [...] Historical ProviderMD - 06/21/2019 12:41 PM CDT [facility] Main OR IntraOp Summary Primary Physician: NIMO EPPS MD-ORT Finalized Date/Time: 06/21/19 15:40:53 Pt. Name: SOFIA BARLOW S /Sex: 1940 Female Med Rec #: [id number] Physician: DONNA DRIVER MD-INT Financial #: [id number] Pt. Type: I Room/Bed: [facility]/1 Admit/Disch: 06/16/19 21:08:00 - Institution: [facility] IntraOp Case Attendance Entry 1 Entry 2 Entry 3 Case Attendee NIMO EPPS Holliday, Stewart R, YUNIOR TRINIDAD MD-ORT Role Performed Surgeon/Proceduralist, Varnishing Unit Operator, First Scrub, Second First Time In 06/21/19 11:50:00 06/21/19 12:30:00 06/21/19 11:50:00 Time Out 06/21/19 15:20:00 06/21/19 13:00:00 06/21/19 15:40:00 Procedure Knee Total Joint Knee Total Joint Knee Total Joint Revision, Wound Revision, Wound Revision, Wound Incision And Drainage Incision And Drainage Incision And Drainage Extremity(Left), Extremity(Left), Extremity(Left), Patella Tendon Patella Tendon Patella Tendon Repair(Left) Repair(Left) Repair(Left) Other Attendee Superficial Wound Closed By: Last Modified By: Luiza Nelson, Luiza Velasquez Rn Maxwell, Kristi, Eddie 06/21/19 15:26:08 06/21/19 13:23:46 06/21/19 15:40:48 Entry 4 Entry 5 Entry 6 Case Attendee RAMON GRECO DO-ANS Horton, Jamie, VERONICA MARTINEZ CRNA Role Performed Anesthesiologist Varnishing Unit Operator, Second FUR DRUMMER/Nurse Slater Apprentice Time In 06/21/19 11:50:00 06/21/19 11:50:00 06/21/19 12:31:00 Time Out 06/21/19 12:31:00 06/21/19 15:40:00 06/21/19 15:40:00 Procedure Knee Total Joint Knee Total Joint Knee Total Joint Revision, Wound Revision, Wound Revision, Wound Incision And Drainage Incision And Drainage Incision And Drainage Extremity(Left), Extremity(Left), Extremity(Left), Patella Tendon Patella Tendon Patella Tendon Repair(Left) Repair(Left) Repair(Left) Other Attendee Superficial Wound Closed By: Last Modified By: Luiza Nelson, Luiza Velasquez Rn Maxwell, Kristi, Rn 06/21/19 13:23:46 06/21/19 15:40:48 06/21/19 15:40:48 Entry 7 Entry 8 Entry 9 Case Attendee OTHER, ATTENDEE Liuza Nelson, OMAR Wilkinson, ESTEBAN Role Performed Vendor Varnishing Unit Operator, Second Magneto Electrician, First Time In 06/21/19 11:50:00 06/21/19 11:50:00 06/21/19 11:50:00 Time Out 06/21/19 15:25:00 06/21/19 15:40:00 06/21/19 15:40:00 Procedure Knee Total Joint Knee Total Joint Knee Total Joint Revision, Wound Revision, Wound Revision, Wound Incision And Drainage Incision And Drainage Incision And Drainage Extremity(Left), Extremity(Left), Extremity(Left), Patella Tendon Patella Tendon Patella Tendon Repair(Left) Repair(Left) Repair(Left) Other Attendee Sammy Beard Superficial Wound Closed By: Last Modified By: Luiza Nelson, Luiza Velasquez, Luiza Velasquez Rn 06/21/19 13:23:46 06/21/19 15:40:48 06/21/19 15:40:48 Entry 10 Entry 11 Case Attendee SOLOMON MCCRACKEN PA-C Combs, Leslie, Fur Pointer Role Performed Physician assistant program director Scrub, First Time In 06/21/19 11:50:00 06/21/19 11:50:00 Time Out 06/21/19 15:40:00 06/21/19 15:40:00 Procedure Patella Tendon Patella Tendon Repair(Left) Repair(Left) Other Attendee Superficial Wound Closed By: Last Modified By: Luiza Nelson, Luiza Velasquez Rn 06/21/19 15:40:48 06/21/19 15:40:48 [facility] IntraOp Case Attendance Audit 06/21/19 15:40:48 Automatic Embroidery Machine Tender: [id number] Modifier: [id number] 1 <*> Procedure Knee Total Joint Revision, Wound Incision And Drainage Extremity(Left), Patella Tendon Repair(Left) 2 <*> Procedure Knee Total Joint Revision, Wound Incision And Drainage Extremity(Left), Patella Tendon Repair(Left) 3 <+> Time Out 3 <*> Procedure Knee Total Joint Revision, Wound Incision And Drainage Extremity(Left), Patella Tendon Repair(Left) 4 <*> Procedure Knee Total Joint Revision, Wound Incision And Drainage Extremity(Left), Patella Tendon Repair(Left) 5 <+> Time Out 5 <*> Procedure Knee Total Joint Revision, Wound Incision And Drainage Extremity(Left), Patella Tendon Repair(Left) 6 <+> Time Out 6 <*> Procedure Knee Total Joint Revision, Wound Incision And Drainage Extremity(Left), Patella Tendon Repair(Left) 7 <*> Procedure Knee Total Joint Revision, Wound Incision And Drainage Extremity(Left), Patella Tendon Repair(Left) 8 <+> Time Out 8 <*> Procedure Knee Total Joint Revision, Wound Incision And Drainage Extremity(Left), Patella Tendon Repair(Left) 9 <+> Time Out 9 <*> Procedure Knee Total Joint Revision, Wound Incision And Drainage Extremity(Left), Patella Tendon Repair(Left) 10 <+> Time Out 10 <*> Procedure Patella Tendon Repair(Left) 11 <+> Time Out 11 <*> Procedure Patella Tendon Repair(Left) 06/21/19 15:26:08 Automatic Embroidery Machine Tender: [id number] Modifier: [id number] <+> Time Out 1 <*> Procedure Knee Total Joint Revision, Wound Incision And Drainage Extremity(Left), Patella Tendon Repair(Left) 7 <+> Time Out 7 <*> Procedure Knee Total Joint Revision, Wound Incision And Drainage Extremity(Left), Patella Tendon Repair(Left) 06/21/19 15:25:31 Automatic Embroidery Machine Tender: [id number] Modifier: [id number] 1 <*> Procedure Knee Total Joint Revision, Wound Incision And Drainage Extremity(Left) 2 <*> Procedure Knee Total Joint Revision, Wound Incision And Drainage Extremity(Left) 3 <*> Procedure Knee Total Joint Revision, Wound Incision And Drainage Extremity(Left) 4 <*> Procedure Knee Total Joint Revision, Wound Incision And Drainage Extremity(Left) 5 <*> Procedure Knee Total Joint Revision, Wound Incision And Drainage Extremity(Left) 6 <*> Procedure Knee Total Joint Revision, Wound Incision And Drainage Extremity(Left) 7 <*> Procedure Knee Total Joint Revision, Wound Incision And Drainage Extremity(Left) 8 <*> Procedure Knee Total Joint Revision, Wound Incision And Drainage Extremity(Left) 9 <*> Procedure Knee Total Joint Revision, Wound Incision And Drainage Extremity(Left) <+> 10 Procedure <+> 11 Procedure 06/21/19 14:23:50 Automatic Embroidery Machine Tender: [id number] Modifier: [id number] 1 <*> Procedure Knee Total Joint Revision, Wound Incision And Drainage Extremity(Left) 2 <*> Procedure Knee Total Joint Revision, Wound Incision And Drainage Extremity(Left) 3 <*> Procedure Knee Total Joint Revision, Wound Incision And Drainage Extremity(Left) 4 <*> Procedure Knee Total Joint Revision, Wound Incision And Drainage Extremity(Left) 5 <*> Procedure Knee Total Joint Revision, Wound Incision And Drainage Extremity(Left) 6 <*> Procedure Knee Total Joint Revision, Wound Incision And Drainage Extremity(Left) 7 <*> Procedure Knee Total Joint Revision, Wound Incision And Drainage Extremity(Left) 8 <*> Procedure Knee Total Joint Revision, Wound Incision And Drainage Extremity(Left) 9 <*> Procedure Knee Total Joint Revision, Wound Incision And Drainage Extremity(Left) <+> 10 Time In <+> 11 Time In 06/21/19 13:23:46 Automatic Embroidery Machine Tender: [id number] Modifier: [id number] 1 <*> Case Attendee NIMO EPPS MD-ORT 1 <*> Role Performed Surgeon/Proceduralist, First 1 <*> Time In 06/21/19 11:50:00 1 <*> Procedure Knee Total Joint Revision, Wound Incision And Drainage Extremity(Left) 2 <*> Case Attendee Vick Schroeder, RN 2 <*> Role Performed Varnishing Unit Operator, First 2 <*> Time In 06/21/19 11:50:00 2 <+> Time Out 2 <*> Procedure Knee Total Joint Revision, Wound Incision And Drainage Extremity(Left) 3 <*> Case Attendee YUNIOR DUBOSE 3 <*> Role Performed Scrub, First 3 <*> Time In 06/21/19 11:50:00 3 <*> Procedure Knee Total Joint Revision, Wound Incision And Drainage Extremity(Left) 4 <*> Case Attendee RAMON GRECO, -ANS 4 <*> Role Performed Anesthesiologist 4 <*> Time In 06/21/19 11:50:00 4 <*> Time Out 06/21/19 12:31:00 4 <*> Procedure Knee Total Joint Revision, Wound Incision And Drainage Extremity(Left) 5 <*> Case Attendee Claus Almanzar, RN 5 <*> Role Performed Varnishing Unit Operator, Second 5 <*> Time In 06/21/19 11:50:00 5 <*> Procedure Knee Total Joint Revision, Wound Incision And Drainage Extremity(Left) 6 <*> Case Attendee VERONICA AYALA, FUR DRUMMER 6 <*> Role Performed FUR DRUMMER/Nurse Slater Apprentice 6 <*> Time In 06/21/19 12:31:00 6 <*> Procedure Knee Total Joint Revision, Wound Incision And Drainage Extremity(Left) 7 <*> Case Attendee OTHER, ATTENDEE 7 <*> Role Performed Vendor 7 <*> Time In 06/21/19 11:50:00 7 <*> Procedure Knee Total Joint Revision, Wound Incision And Drainage Extremity(Left) 7 <*> Other Attendee Sammy Beard 8 <*> Case Attendee Luiza Nelson, Rn 8 <*> Role Performed Varnishing Unit Operator, Second 8 <*> Time In 06/21/19 11:50:00 8 <*> Procedure Knee Total Joint Revision, Wound Incision And Drainage Extremity(Left) 9 <*> Case Attendee OMAR JIMENEZ CSA 9 <*> Role Performed Other 9 <*> Time In 06/21/19 11:50:00 9 <*> Procedure Knee Total Joint Revision, Wound Incision And Drainage Extremity(Left) Entry 10 was deleted. Higher numbered entries shifted one position to fill the gap. <-> 10 Case Attendee OTHER, ATTENDEE <-> 10 Role Performed Magneto Electrician, First <-> 10 Time In 06/21/19 11:50:00 <-> 10 Other Attendee Prince Cornejo 06/21/19 13:05:25 Automatic Embroidery Machine Tender: [id number] Modifier: [id number] 1 <*> Procedure Knee Total Joint Revision, Wound Incision And Drainage Extremity(Left) 2 <*> Procedure Knee Total Joint Revision, Wound Incision And Drainage Extremity(Left) 3 <*> Procedure Knee Total Joint Revision, Wound Incision And Drainage Extremity(Left) 4 <*> Procedure Knee Total Joint Revision, Wound Incision And Drainage Extremity(Left) 5 <*> Procedure Knee Total Joint Revision, Wound Incision And Drainage Extremity(Left) 6 <*> Procedure Knee Total Joint Revision, Wound Incision And Drainage Extremity(Left) 7 <*> Procedure Knee Total Joint Revision, Wound Incision And Drainage Extremity(Left) 8 <+> Time In 8 <*> Procedure Knee Total Joint Revision, Wound Incision And Drainage Extremity(Left) 9 <+> Time In 9 <*> Procedure Knee Total Joint Revision, Wound Incision And Drainage Extremity(Left) <+> 10 Time In 06/21/19 12:59:17 Automatic Embroidery Machine Tender: [id number] Modifier: [id number] <+> 8 Case Attendee <+> 8 Role Performed <+> 8 Procedure <+> 9 Case Attendee <+> 9 Role Performed <+> 9 Procedure <+> 10 Case Attendee <+> 10 Role Performed <+> 10 Other Attendee 06/21/19 12:53:44 Automatic Embroidery Machine Tender: [id number] Modifier: [id number] 1 <*> Procedure Knee Total Joint Revision, Wound Incision And Drainage Extremity(Left) 2 <*> Procedure Knee Total Joint Revision, Wound Incision And Drainage Extremity(Left) 3 <*> Procedure Knee Total Joint Revision, Wound Incision And Drainage Extremity(Left) 4 <*> Procedure Knee Total Joint Revision, Wound Incision And Drainage Extremity(Left) 5 <*> Procedure Knee Total Joint Revision, Wound Incision And Drainage Extremity(Left) 6 <*> Procedure Knee Total Joint Revision, Wound Incision And Drainage Extremity(Left) 7 <+> Time In 7 <*> Procedure Knee Total Joint Revision, Wound Incision And Drainage Extremity(Left) 06/21/19 12:43:54 Automatic Embroidery Machine Tender: [id number] Modifier: [id number] <+> 7 Case Attendee <+> 7 Role Performed <+> 7 Procedure <+> 7 Other Attendee 06/21/19 12:36:50 Automatic Embroidery Machine Tender: [id number] Modifier: [id number] 1 <*> Procedure Knee Total Joint Revision, Wound Incision And Drainage Extremity(Left) 2 <*> Procedure Knee Total Joint Revision, Wound Incision And Drainage Extremity(Left) 3 <*> Procedure Knee Total Joint Revision, Wound Incision And Drainage Extremity(Left) 4 <*> Procedure Knee Total Joint Revision, Wound Incision And Drainage Extremity(Left) 5 <+> Time In 5 <*> Procedure Knee Total Joint Revision, Wound Incision And Drainage Extremity(Left) 6 <*> Procedure Knee Total Joint Revision, Wound Incision And Drainage Extremity(Left) 06/21/19 12:31:59 Automatic Embroidery Machine Tender: [id number] Modifier: [id number] 4 <+> Time Out 4 <*> Procedure Knee Total Joint Revision, Wound Incision And Drainage Extremity(Left) <+> 5 Case Attendee <+> 5 Role Performed <+> 5 Procedure <+> 6 Case Attendee <+> 6 Role Performed <+> 6 Time In <+> 6 Procedure 06/21/19 12:23:34 Automatic Embroidery Machine Tender: [id number] Modifier: [id number] 1 <*> Procedure Knee Total Joint Revision, Wound Incision And Drainage Extremity(Left) 2 <+> Time In 2 <*> Procedure Knee Total Joint Revision, Wound Incision And Drainage Extremity(Left) 3 <+> Time In 3 <*> Procedure Knee Total Joint Revision, Wound Incision And Drainage Extremity(Left) 4 <+> Time In 4 <*> Procedure Knee Total Joint Revision, Wound Incision And Drainage Extremity(Left) [facility] IntraOp Case Times Entry 1 Patient In Room Time 06/21/19 11:50:00 Out Room Time 06/21/19 15:40:00 Anesthesia Start Time 06/21/19 11:50:00 Stop Time 06/21/19 15:40:00 Anesthesia Ready 06/21/19 11:50:00 Surgery / Procedure Times Start Time 06/21/19 12:41:00 Stop Time 06/21/19 15:38:00 Last Modified By: Luiza Nelson Rn 06/21/19 12:22:34 [facility] IntraOp Case Times Audit 06/21/19 15:40:40 Automatic Embroidery Machine Tender: [id number] Modifier: [id number] <+> 1 Out Room Time <+> 1 Stop Time 06/21/19 15:39:30 Automatic Embroidery Machine Tender: [id number] Modifier: [id number] <+> 1 Stop Time 06/21/19 12:52:18 Automatic Embroidery Machine Tender: [id number] Modifier: [id number] <+> 1 Start Time [facility] IntraOp Cautery Entry 1 ESU Identification Cautery Type Monopolar ESU ID Number [id number] ID Type Hospital Number Cautery Settings Cut Setting 70 Coag Setting 70 ESU Grounding Pad Ground Pad Type Adult Grounding Pad Site Right Lower Abdomen Grounding Pad Luiza Nelson Rn Applied By Grounding Pad Site Warm, dry and intact Skin Condition Before Cautery Grounding Pad Site Unchanged Skin Condition After Cautery Last Modified By: Luiza Nelson Rn 06/21/19 13:31:07 [facility] IntraOp Cautery Audit 06/21/19 13:31:07 Automatic Embroidery Machine Tender: [id number] Modifier: [id number] 1 <*> Cautery Type BiPolar ESU 1 <+> Coag Setting 1 <+> Cut Setting 1 <+> Grounding Pad Site 1 <*> ID Number [id number] <+> Grounding Pad Applied By 1 <+> Grounding Pad Site Skin Condition Before Cautery 1 <+> Grounding Pad Site Skin Condition After Cautery [facility] IntraOp Communication Entry 1 Communication To Family/Significant other Comment procedure update Communication By Vick Schroeder RN Last Modified By: Luiza Nelson Rn 06/21/19 12:51:49 [facility] IntraOp Counts Verification Entry 1 Entry 2 Procedure Knee Total Joint Knee Total Joint Revision, Wound Revision, Wound Incision And Drainage Incision And Drainage Extremity(Left), Extremity(Left), Patella Tendon Patella Tendon Repair(Left) Repair(Left) Count Info Count Type Sponge, Sharps Sponge, Sharps Counts Verification Baseline/pre-procedure Before wound closure Sequence Count Results Correct, surgeon Correct, surgeon notified notified If Incorrect or Waived complete the Counts Action Taken form: If Intentional Retention, complete the Intential Retention form: Counts Performed By Count Performed By YUNIOR DUBOSE Leslie, Scrub (Scrub) Tech Count Performed By Claus Almanzar RN Maxwell, Kristi, Rn (RN) Last Modified By: Luiza Nelson, Luiza Velasquez Rn 06/21/19 12:54:50 06/21/19 15:01:44 [facility] IntraOp Counts Verification Audit 06/21/19 15:25:34 Automatic Embroidery Machine Tender: [id number] Modifier: [id number] 1 <*> Procedure Knee Total Joint Revision, Wound Incision And Drainage Extremity(Left) 2 <*> Procedure Knee Total Joint Revision, Wound Incision And Drainage Extremity(Left) 06/21/19 15:01:44 Automatic Embroidery Machine Tender: [id number] Modifier: [id number] <+> 2 Procedure <+> 2 Count Type <+> 2 Counts Verification Sequence <+> 2 Count Results <+> 2 Count Performed By (Scrub) <+> 2 Count Performed By (RN) 06/21/19 12:54:50 Automatic Embroidery Machine Tender: [id number] Modifier: [id number] 1 <*> Procedure Knee Total Joint Revision, Wound Incision And Drainage Extremity(Left) 1 <*> Count Type Sponge, Sharps 1 <*> Counts Verification Sequence Baseline/pre-procedure 1 <*> Count Results Correct, surgeon notified 1 <+> Count Performed By (Scrub) 1 <+> Count Performed By (RN) 06/21/19 12:51:36 Automatic Embroidery Machine Tender: [id number] Modifier: [id number] 1 <*> Procedure Knee Total Joint Revision, Wound Incision And Drainage Extremity(Left) [facility] IntraOp Counts Final Entry 1 Procedure Knee Total Joint Revision, Wound Incision And Drainage Extremity(Left), Patella Tendon Repair(Left) Final Count Info Count Type Sponge, Sharps Counts Verification Skin Closure/end of Sequence procedure Count Results Correct, surgeon notified Counts Performed By Count Performed By Radha Zamora Scrub (Scrub) Tech Count Performed By Luiza Nelson Rn (RN) Last Modified By: Luiza Nelson Rn 06/21/19 15:23:01 [facility] IntraOp Counts Final Audit 06/21/19 15:25:34 Automatic Embroidery Machine Tender: [id number] Modifier: [id number] 1 <*> Procedure Knee Total Joint Revision, Wound Incision And Drainage Extremity(Left) [facility] IntraOp Cultures and Spec Summary Entry 1 Cultrures and Specimens Specimen Ordered: Yes Test(s) Routine/Path-Lab, Requested/Final Culture(s)/Microbiology Disposition Last Modified By: Luiza Nelson Rn 06/21/19 13:20:20 [facility] IntraOp Cultures and Spec Summary Audit 06/21/19 13:20:20 Automatic Embroidery Machine Tender: [id number] Modifier: [id number] 1 <*> Test(s) Requested/Final Disposition Routine/Path-Lab [facility] IntraOp Departure from OR Entry 1 Integumentary Assessment Integumentary WDL Assessment WDL Transfer/Handoff Transfer to PACU Phase I Handoff Method Bedside/Face to face Post-op Transport Bed (including Via specialty) Patient Transport VERONICA AYALA, Accompanied by Jenelle SALAMANCA Jamie, EDDIE, Luiza Nelson, Eddie Last Modified By: Luiza Nelson Rn 06/21/19 13:31:50 [facility] IntraOp Departure from OR Audit 06/21/19 13:31:50 Automatic Embroidery Machine Tender: [id number] Modifier: [id number] 1 <+> Integumentary Assessment WDL 1 <*> Patient Transport Accompanied by Vick Schroeder, EDDIE 1 <+> Handoff Method [facility] IntraOp Drains and Tubes Entry 1 Device Type Hemovac Size MED. Device Location LEFT KNEE Method of Drainage Compression Comment HEMOVAC X 2 Last Modified By: Luiza Nelson Rn 06/21/19 15:01:21 [facility] IntraOp Drains and Tubes Audit 06/21/19 15:01:21 Automatic Embroidery Machine Tender: [id number] Modifier: [id number] <+> 1 Comment 06/21/19 13:32:08 Automatic Embroidery Machine Tender: [id number] Modifier: [id number] 1 <*> Device Location OPSITE [facility] IntraOp Dressing and Packing Entry 1 Type Dressing Location LEFT KNEE Wound Dressing Item 4x4's, Sanchez, Webril, Xeroform Supplemental Cold pack Applications Last Modified By: Luiza Nelson Rn 06/21/19 12:23:52 [facility] IntraOp Dressing and Packing Audit 06/21/19 13:32:28 Automatic Embroidery Machine Tender: [id number] Modifier: [id number] 1 <*> Location OPSITE [facility] IntraOp Explant Log Entry 1 Explant Log Description POLY AND HARDWARE Explant Site LEFT KNEE Removal Reason Infection Disposition Sent to pathology Last Modified By: Luiza Nelson Rn 06/21/19 13:33:14 [facility] IntraOp Explant Log Audit 06/21/19 15:19:08 Automatic Embroidery Machine Tender: [id number] Modifier: [id number] 1 <*> Description PATELLA POLY [facility] IntraOp Fire Risk Assessment Entry 1 Fire Info Surgical Site or 0- No Incision Above the Xyphoid Open O2 Source 0- No (Mask or Cannula) Available Ignition 1- Yes (ESU, Laser, Light Source) Fire Risk 1 Assessment Score Fire Score Fire Risk Yes Assessment Complete Fire Risk Luiza Nelson Rn Assessment Verified By Fire Risk 06/21/19 11:23:00 Assessment Verified Date/Time Fire Risk High Risk Protocol Yes Implemented Standard Fire Yes Safety Precautions Followed Last Modified By: Luiza Nelson Rn 06/21/19 12:23:32 [facility] IntraOp Fire Risk Assessment Audit 06/21/19 13:33:24 Automatic Embroidery Machine Tender: [id number] Modifier: [id number] 1 <*> Fire Risk Assessment Verified By Vick Schroeder, RN E IntraOp General Case Corporate Sales Manager 1 Case Information OR OR 02 [facility] Case Level 1 Room Verified Yes Wound Class IV - Dirty-Infected Specialty SN Orthopedic Anesthesia Type General ASA Class 4 Diagnosis Preop Diagnosis LEFT KNEE INFECTION Postop Same As Preop No Postop Diagnosis DICTATED BY MD Last Modified By: Luiza Nelson Rn 06/21/19 12:51:29 [facility] IntraOp General Case Data Audit 06/21/19 13:34:03 Automatic Embroidery Machine Tender: [id number] Modifier: [id number] 1 <*> OR OR 09 [facility] 1 <+> Postop Same As Preop 1 <*> Preop Diagnosis left knee infection 1 <*> Postop Diagnosis refer to MD notes 06/21/19 12:55:46 Automatic Embroidery Machine Tender: [id number] Modifier: [id number] <+> 1 Preop Diagnosis 06/21/19 12:51:29 Automatic Embroidery Machine Tender: [id number] Modifier: [id number] <+> 1 ASA Class <+> 1 Anesthesia Type <+> 1 Postop Diagnosis <+> 1 Room Verified [facility] IntraOp Implant Log Entry 1 Entry 2 Entry 3 Type Implant (Synthetic) Implant (Synthetic) Implant (Synthetic) Implant Log Implant Type Hardware Hardware Hardware Tissue Implant Type Implant INSRT FEM XT SZ [id number] KT SERVICE SEG FEM IMP SEG ARTC SURF B Identification HINGE [id number] Description Implant Quantity 1 1 1 Implant Site LEFT KNEE LEFT KNEE LEFT KNEE Implant Identification Model Number Implant Identification Serial Number Implant [id number] Identification Lot Number Implant Jacquie:Jacquie Us Jacquie:Jacquie Us Jacquie:Jacquie Us Identification Bakery Helper Name: Implant [id number] Identification Catalog Number Implant Size Implant Has an Yes Yes Yes Expiration Date Implant Expiration 06/29/27 11/28/24 02/28/27 Date Wasted Radioactive Material Time Implanted Tissue Implant Continue for Tissue Implant Documentation Tissue Identification Number Graft Prep Per Bakery Helper Instructions: Tissue Preparation Method: Reconstitution Solution: Reconstitution Solution Lot Number Reconstitution Solution Expiration Date: Thawing Solution Thawing Solution Lot Number Thawing Solution Expiration Date Preparation Materials, Other Preparation Materials, Other Lot Number Preparation Materials, Other Expiration Date Tissue Prepared/Processed By Bakery Helper Paperwork Completed Implant Type Comment Last Modified By: Luiza Nelson Rn Maxwell, Kristi, Rn Maxwell, Kristi, Rn 06/21/19 14:40:06 06/21/19 14:40:06 06/21/19 14:40:06 Entry 4 Type Implant (Synthetic) Implant Log Implant Type Hardware Tissue Implant Type Implant COMP FEM XT DIS SZ B Identification [id number] Description Implant Quantity 1 Implant Site LEFT KNEE Implant Identification Model Number Implant Identification Serial Number Implant [id number] Identification Lot Number Implant Jacquie:Jacquie Us Identification Bakery Helper Name: Implant [id number] Identification Catalog Number Implant Size Implant Has an Yes Expiration Date Implant Expiration 03/31/29 Date Wasted Radioactive Material Time Implanted Tissue Implant Continue for Tissue Implant Documentation Tissue Identification Number Graft Prep Per Bakery Helper Instructions: Tissue Preparation Method: Reconstitution Solution: Reconstitution Solution Lot Number Reconstitution Solution Expiration Date: Thawing Solution Thawing Solution Lot Number Thawing Solution Expiration Date Preparation Materials, Other Preparation Materials, Other Lot Number Preparation Materials, Other Expiration Date Tissue Prepared/Processed By Bakery Helper Paperwork Completed Implant Type Comment Last Modified By: Luiza Nelson Rn 06/21/19 14:40:06 [facility] IntraOp Intraoperative Assessment Entry 1 Handoff Reported to Luiza Nelson Rn Handoff Method Other Valid History / Yes Physical in Chart Preoperative Yes Checklist Reviewed/Evaluated Allergies Reviewed Yes Patient is Latex Yes, protocol initiated Sensitive Level of WDL Consciousness (WDL = Alert, Oriented to Person, Place, and Time) Skin Assessment Yes Verified Present Upon IVs, Other Arrival to OR Last Modified By: Luiza Nelson Rn 06/21/19 13:34:44 General Comments: PICC LINE SJE IntraOp Intraoperative Assessment Audit 06/21/19 13:34:44 Automatic Embroidery Machine Tender: [id number] Modifier: [id number] 1 <*> Level of Consciousness (WDL = Alert, Oriented to Person, Place, and Time) 1 <*> Present Upon Arrival to OR 1 <*> Handoff Reported to Luiza Nelson Rn 1 <*> Handoff Method SJE IntraOp Intraoperative Equipment Entry 1 Type Equipment Equipment Equipment Stefani Suction System Setting HIGH Intraop Monitoring Electrocardiogram Three lead placement (ECG) Electrode Placement Blood Pressure Non-Invasive BP Device Source Blood Pressure Arm, right upper Location Pulse Oximeter Hand, left Probe Site Antiembolic Devices Antiembolic Devices Sequential compression device, knee high Antiembolic Device Right Location Scopes Photo/Video Documentation Photo No Video No Last Modified By: Luiza Nelson Rn 06/21/19 12:24:18 SJE IntraOp Intraoperative Equipment Audit 06/21/19 13:51:08 Automatic Embroidery Machine Tender: [id number] Modifier: [id number] <+> 1 Blood Pressure Location <+> 1 Pulse Oximeter Probe Site <+> 1 Antiembolic Device Location <+> 1 Blood Pressure Source SJE IntraOp Medication Admin Entry 1 Entry 2 Entry 3 Medication/Irrigant TRANEXAMIC ACID ANESTHETIC vancomycin 1Gm vial - 1000MG/10 ML COCKTAIL-EPPS [id number] Combo Med List Time Administered Route of Administration Dose Dose 1000 Unit of Measure mg Volume 10ML Administered By NIMO EPPS CHRISTENSEN, CHRISTIAN, CHRISTENSEN, CHRISTIAN, MD-ORT -ORT -ORT Procedure Irrigation Irrigant Volume In Irrigant Volume Out Last Modified By: Luiza Nelson Rn Maxwell, Kristi, Rn Maxwell, Kristi, Rn 06/21/19 12:54:08 06/21/19 12:54:08 06/21/19 12:54:08 SJE IntraOp Patient Positioning Entry 1 Procedure Knee Total Joint Revision Body Position Supine Left Arm Position Secured on padded arm board Right Arm Position Secured on padded arm board Left Leg Position Uncrossed, parallel Right Leg Position Uncrossed, parallel Feet Uncrossed Yes Pressure Points Yes Checked Positioning Devices Foot Rest, Pillows, Safety Strap, Chest Positioned By VERONICA AYALA CRNA, Luiza Nelson, Eddie, Claus Almanzar, EDDIE, OMAR JIMENEZ, ESTEBAN, SEDRICK, YUNIOR Warren Position Verified Positioning Yes Verified by Anesthesia Positioning Yes Verified by Surgeon Last Modified By: Luiza Nelson Rn 06/21/19 13:51:47 SJE IntraOp Patient Positioning Audit 06/21/19 13:51:47 Automatic Embroidery Machine Tender: [id number] Modifier: [id number] 1 <*> Procedure Knee Total Joint Revision 1 <*> Positioned By Vick Schroeder, EDDIE SJE IntraOp Sign In Entry 1 Patient, Site, Yes Procedure Identified Surgical Consent Yes Confirmed Relevant Surgical Yes Documents Available Surgical Site Yes Marked by person performing procedure Anesthesia Machine Yes Check Completed Medication Checks Yes Completed Allergies Yes Airway Difficult No Airway/Aspiration Risk Difficult Yes Airway/Aspiration Intervention Equipment Available Blood Loss Risk Yes Blood Loss Yes Intervention Equipment Prepared and Ready Hypothermia Risk Yes Warming Measures Yes Taken Last Modified By: Luiza Nelson Rn 06/21/19 12:23:21 SJE IntraOp Sign In Audit 06/21/19 13:51:56 Automatic Embroidery Machine Tender: [id number] Modifier: [id number] <+> 1 Allergies SJE Intra Op Sign Out Entry 1 [...] Checklist Yes Elements Complete? RN Sign Out Luiza Nelson Rn Signature RN Sign Out 06/21/19 15:40:00 Signature Date/Time Plan of Care Outcome - [...] related to extraneous objects Last Modified By: Luiza Nelson Rn 06/21/19 13:52:06 SJE Intra Op Sign Out Audit 06/21/19 15:40:46 Automatic Embroidery Machine Tender: [id number] Modifier: [id number] <+> 1 RN Sign Out Signature Date/Time SJE IntraOp Skin Prep Entry 1 Procedure Knee Total Joint Revision Prescribed Yes Pre-Surgical Prep Completed Prep Area LEFT KNEE Intraop Prep Integumentary WDL Assessment WDL Prep Agents DuraPrep, Alcohol Prep by Luiza Nelson Rn Hair Removal Methods No hair removal performed Last Modified By: Luiza Nelson Rn 06/21/19 14:22:51 SJE IntraOp Skin Prep Audit 06/21/19 14:22:51 Automatic Embroidery Machine Tender: [id number] Modifier: [id number] 1 <*> Prep Area OPSITE 1 <*> Prep Agents DuraPrep 1 <*> Procedure Knee Total Joint Revision 1 <*> Prep by Vick Schroeder RN 1 <+> Integumentary Assessment WDL SJE IntraOp Surgical Procedures Entry 1 Entry 2 Entry 3 Procedure Knee Total Joint Wound Incision And Patella Tendon Repair Revision Drainage Extremity Modifiers Left Left Additional LEFT TOTAL KNEE Procedure REVISION WITH PATELLAR Description TENDON REPAIR; INCISION AND DRAINAGE LEFT LEG Primary Procedure Yes No No Primary Surgeon NIMO EPPS CHRISTENSEN, CHRISTIAN, CHRISTENSEN, CHRISTIAN, MD-ORT RENEEORT -ORT Start 06/21/19 12:41:00 06/21/19 12:41:00 06/21/19 12:41:00 Stop 06/21/19 15:38:00 06/21/19 15:38:00 06/21/19 15:38:00 Physician States Cecum Reached Anesthesia Type General General General Specialty SN Orthopedic SN Orthopedic SN Orthopedic Wound Class I - Clean IV - Dirty-Infected IV - Dirty-Infected Last Modified By: Luiza Nelson, Luiza Velasquez Rn Maxwell, Kristi, Rn 06/21/19 15:25:19 06/21/19 15:25:19 06/21/19 15:25:19 SJE IntraOp Surgical Procedures Audit 06/21/19 15:39:32 Automatic Embroidery Machine Tender: [id number] Modifier: [id number] <+> 1 Stop <+> 2 Stop <+> 3 Stop 06/21/19 15:25:19 Automatic Embroidery Machine Tender: [id number] Modifier: [id number] 1 <*> Procedure Knee Total Joint Revision 1 <*> Primary Procedure Yes 1 <*> Primary Surgeon NIMO EPPS MD-ORT 1 <*> Specialty 1 <*> Start 06/21/19 12:41:00 1 <*> Wound Class I - Clean 1 <*> Anesthesia Type General 1 <*> Additional Procedure Description LEFT TOTAL KNEE REVISION; INCISION AND DRAINAGE LEFT LEG 2 <*> Procedure Wound Incision And Drainage Extremity 2 <*> Primary Procedure No 2 <*> Modifiers Left 2 <*> Primary Surgeon NIMO EPPS MD-ORT 2 <*> Specialty 2 <*> Start 06/21/19 12:41:00 2 <*> Wound Class IV - Dirty-Infected 2 <*> Anesthesia Type General <+> 3 Procedure <+> 3 Primary Procedure <+> 3 Modifiers <+> 3 Primary Surgeon <+> 3 Specialty <+> 3 Start <+> 3 Wound Class <+> 3 Anesthesia Type 06/21/19 14:43:08 Automatic Embroidery Machine Tender: [id number] Modifier: [id number] 1 <*> Procedure Knee Total Joint Revision 1 <*> Additional Procedure Description LEFT TOTAL KNEE REVISION POSSIBLE INCISION AND DRAINAGE LEFT LEG 2 <*> Procedure Wound Incision And Drainage Extremity 2 <+> Modifiers SJE IntraOp Temp Regulation Devices Entry 1 Temp Regulation Temperature Conductive warming Regulation Device device placed over patient Temperature Upper body Regulation Site Temperature Device 43 Setting Temperature VERONICA AYALA FUR DRUMMER Regulation Device Applied by Last Modified By: Luiza Nelson Rn 06/21/19 12:52:49 SJE IntraOp Time Out Entry 1 Procedure to be Knee Total Joint Performed Revision, Wound Incision And Drainage Extremity(Left) Time Out Time Out Pause Time 06/21/19 12:40:00 All activity Yes suspended (unless life threatening emergency) Team Verbally Correct patient Confirms Information identity, Correct side documented in this encounter Plan of Treatment Not on file documented as of this encounter Visit Diagnoses Not on filedocumented in this encounter
== END 2024-08-09 13:35 | disposition home or self-care (01) ==
LOC: INF 13:15
PROVIDERS: PCP Internal Medicine Adolescent Medicine; Visit Provider Nurse Practitioner Family
DX: M81.0 Age-related osteoporosis without current pathological fracture (principal)
CPT/HCPCS: 96374; J3489

== ENCOUNTER 2024-08-22 07:05 | Day surgery (SDC) | payer MEDICARE, SELFPAY ==
[2024-08-22] VITALS (11 sets, daily range): BP systolic 109–161; BP diastolic 51–83; PULSE 63–82; RESP 15–20; TEMP 36.1; O2SAT 93–97; BMI 41.0
--- NOTE | 2024-08-22 07:30 | IR_ITS ---
APPROVED REPORT Patient Location: Outpatient Outsole Skiver: Yusef Shaffer, RT (R) PROCEDURES Right heart catheterization Left heart catheterization Left ventriculogram Selective coronary angiogram Informed consent was obtained prior to the procedure. COMPLICATIONS None Estimated Blood Loss: Less than 10 mls TECHNIQUE One percent lidocaine was used to anesthetize the right anterior aspect of the right wrist. The right radial artery was accessed via the Seldinger technique and a 6 Faroese hydrophilic sheath was placed in the right radial artery. Following this one percent lidocaine was used to anesthetize the right anterior aspect of the right neck. The right internal jugular vein was accessed via the Seldinger technique and a 7 Faroese sheath was placed in the right internal jugular vein. Following this an arterial cocktail was administered using 5000U heparin, 2.5 mg verapamil, 1mg Lidocaine and 800mcg nitroglycerin into the right radial sheath. A JL3 catheter was used to perform left heart catheterization left ventriculogram and selective coronary angiography while a Leander-Raymundo catheter was used to perform right heart catheterization. Saturations were obtained in the pulmonary artery and right atrium. At the end of the procedure the arterial sheath was removed good hemostasis was achieved using Traclet band. Patient was transferred to the postop holding area in stable condition for venous sheath removal. ANGIOGRAPHIC RESULTS The left main artery Has an ostial 20 to 30% stenosis The left anterior descending artery As a proximal concentric 30% calcified stenosis with additional 10% luminal regularities along tortuous large diagonal artery and remaining LAD The circumflex artery Large and dominant and has proximal 30% calcified stenosis The right coronary artery Nondominant has proximal 30% stenoses The RAUSCH ventriculogram reveals Normal 65% The left ventricular end-diastolic pressure 25 mmHg An 80 mm trans stenotic gradient is identified upon pullback with a JR4 catheter Right atrial pressure 10 mmHg Right ventricular 40/10 mmHg Pulmonary artery pressure 35/25 mmHg Pulmonary artery occlusion pressure 25 mmHg Right atrial saturation 82% Pulmonary artery saturation 82% Aortic saturation 99% Hemoglobin 11.7 Cardiac output 8.8 L/min via Bella IMPRESSION Mild to moderate calcified nonflow limiting coronary artery disease 80 mm trans aortic valve gradient Increased left-sided filling pressures as described above with mild pulmonary hypertension PLAN 1. Proceed with TAVR evaluation 2. Medical management for coronary artery disease Electronically signed by : Shemar Barger MD 08/22/2024 10:07:42
[2024-08-22 07:49] LABS: Basophils % 0.4 % (0.1-2.0); Eosinophils # 0.7 Kmm3 (0.0-0.4); Eosinophils % 8.8 % (0.1-12.0); Hematocrit 36.2 % (37.0-47.0); Hemoglobin 11.7 g/dL (12.2-16.2); Immature Granulocytes # 0.01 10^3uL; Immature Granulocytes % 0.1 %; Lymphocytes # 1.6 K/mm3 (0.7-4.5); Mean Corpuscular HGB Conc 32.3 g/dL (31.8-35.4); Mean Corpuscular Hemoglobin 31.8 pg (27.0-31.2); Mean Corpuscular Volume 98.4 fl (81-99); Mean Platelet Volume 10.1 fl (7.4-10.4); Monocytes # 0.9 K/mm3 (0.1-1.0); Neutrophils # 4.8 K/mm3 (1.8-7.8); Neutrophils % 59.7 % (37.0-80.0); Nucleated Red Blood Cells # 0 10^3/uL; Nucleated Red Blood Cells % 0 %; Platelet Count 242 K/mm3 (142-424); Red Blood Count 3.68 M/mm3 (4.20-5.40); Red Cell Distribution Width 12.1 % (11.5-17.5); Red Cell Distribution Width-SD 44.1 fL; White Blood Count 8.1 K/mm3 (4.8-10.8)
[2024-08-22 08:03] LABS: Chloride 103 mmol/L (98-107); Potassium 5.1 mmoL/L (3.5-5.1); Sodium 136 mmol/L (136-145)
[2024-08-22 08:06] LABS: Anion Gap 11.1 mEq/L (5-15); Blood Urea Nitrogen 30 mg/dl (7-17); Carbon Dioxide 27 mmol/L (22.0-30.0); Creatinine Clearance Estimated 65 mL/min (50-200); Estimated Glomerular Filt Rate 53 ml/min (>60); GFR (African American) 64 ML/MIN (>60); Glucose 107 mg/dl (74-100)
[2024-08-22] MEDS: VERAPAMIL 2.5MG/ML 2ML VIAL 2.5 MG IV (09:10)
[2024-08-22] MEDS: LIDOCAINE 1% 10ML MDV 10 ML IJ (09:10)
[2024-08-22] MEDS: HEPARIN 1,000 UNITS/ML 10ML VIAL (CATH LAB) 5000 UNIT IV (09:10)
[2024-08-22] MEDS: HEPARIN 1,000 UNITS/500ML NS (CATH LAB) 3000 UNIT IV (09:11)
[2024-08-22] MEDS: 0.9 % SODIUM CHLORIDE 500 ML 25 ML IV (09:11)
[2024-08-22] MEDS: diphenhydrAMINE 50MG/ML VIAL 50 MG IV (09:12)
[2024-08-22] MEDS: NITROGLYCERIN 800MCG/8ML SYR (CATH LAB) 800 MCG IA (09:12)
[2024-08-22] MEDS: MIDAZOLAM HCL 1MG/ML 5ML VIAL 1 MG IV (09:49)
[2024-08-22] MEDS: FENTANYL 100MCG/2ML VIAL 50 MCG IV (09:50)
--- NOTE | 2024-08-22 10:11 | SUR.PHASEII ---
R IJ pulled using sterile technique. Sterile dressing placed, min serosang drainage noted on dressing. Pt tolerated well. Resting in bed, no needs voiced. Call colvin w/in reach.
--- NOTE | 2024-08-22 10:18 | ECG_ITS ---
APPROVED REPORT Exam: Resting ECG HR:64 bpm ECG Measurements Heart Rate 64 AXES QRSd 74 QRS 2 QT 437 T -3 QTc 447 Conclusion ATRIAL FIBRILLATION ABNORMAL RHYTHM ECG UNCONFIRMED REPORT Electronically signed by : Sina Segura MD 08/23/2024 08:50:39
--- NOTE | 2024-08-22 10:25 | SUR.PHASEII ---
PATIENT NOTED TO HAVE ARYTHMIA, NOTIFIED, EKG OBTAINED
[2024-08-22] MEDS: IOPAMIDOL-370 (76%);100ML BOTTLE 75 ML IV (13:28)
[2024-08-22 13:30] LABS: CATHL Arterial O2 SAT 82.7 % (90-100); CATHL Venous O2 SAT 82 % (75-80)
== END 2024-08-22 12:40 | disposition home or self-care (01) ==
PROVIDERS: PCP Nurse Practitioner Family; Visit Provider Internal Medicine
PROC: 4A023N7 Measurement of Cardiac Sampling and Pressure, Left Heart, Percutaneous Approach (ICD-10-PCS; CPT 93452; principal; 2024-08-22 08:15)
DX: I35.0 Nonrheumatic aortic (valve) stenosis (principal); I25.10 Atherosclerotic heart disease of native coronary artery without angina pectoris; R93.1 Abnormal findings on diagnostic imaging of heart and coronary circulation; I11.0 Hypertensive heart disease with heart failure; I50.32 Chronic diastolic (congestive) heart failure; E03.9 Hypothyroidism, unspecified; G47.33 Obstructive sleep apnea (adult) (pediatric); E78.5 Hyperlipidemia, unspecified; E66.813 Obesity, class 3; Z68.41 Body mass index [BMI] 40.0-44.9, adult; I73.9 Peripheral vascular disease, unspecified; I27.20 Pulmonary hypertension, unspecified; Z95.828 Presence of other vascular implants and grafts; Z79.1 Long term (current) use of non-steroidal anti-inflammatories (NSAID); Z79.82 Long term (current) use of aspirin; Z79.2 Long term (current) use of antibiotics; Z79.890 Hormone replacement therapy; Z79.899 Other long term (current) drug therapy; Z88.0 Allergy status to penicillin; Z88.2 Allergy status to sulfonamides; Z88.8 Allergy status to other drugs, medicaments and biological substances; Z82.49 Family history of ischemic heart disease and other diseases of the circulatory system; Z82.3 Family history of stroke
CPT/HCPCS: 93460; 80048; 82810; 85025; 93005; 99152; 99153; C1725; C1769; C1894; J1200; J1644; J3010; J7040; Q9967

== ENCOUNTER → 2024-08-30 07:29 | Outpatient (CLI) | payer MEDICARE, SELFPAY ==
--- OUTSIDE RECORDS SUMMARY | 2024-06-03 17:30 | XMS_ITS ---
Author Organization [facility] D DEVIN Address [address] [facility] [address] [place] [address] Care Team Providers Care Business Information Manager Name Role Phone Sina Segura Primary Care Provider [phone] Migration, Provider Unavailable Unavailable Allergies Allergen (clinical [...] Drug Allergy Act ivan REASON FOR VISIT [facility] To [facility] Conversion Encounter Medications Medication SIG (Take, [...] evening); Duration: 90 days Active POTASSIUM CHLORIDE ([id number] M20) 20 MEQ TAKE 1 TABLET BY [...] e-prescription and drug interaction check* Active Nystatin 231060 UNIT/GM 1 nilda applied topically 3 times a day; Duration: 14 days 08/25/2021 Active Multivitamin - 1 tab(s) orally once a day; Duration: 30 day(s) Active Fluticasone Propionate 50 MCG/ACT 2 sprays nasally once a day; Duration: 30 day(s) 10/21/2017 Active Cyanocobalamin-Methylco balamin 5000mcg-1 tablet once a day *Please review and pick correct strength-formulati on from OpenRoute options. If intended option is not shown, discontinue and re-order from Quick Search* Active MiraLax - ORALLY ONCE A DAY *Please review and pick correct strength-formulati on from OpenRoute options. If intended option is not shown, discontinue and re-order from Quick Search* Active Calcium-Vitamin D 600 MG-800 INTL UNITS 1TAB ORALLY TWICE DAILY *Please review and pick correct strength-formulati on from OpenRoute options. If intended option is not shown, [...] Active Encounters Encounter Location Date Provider Diagnosis [facility] IM [facility]ED [facility] [address] [facility] [address] [place] [address] 06/03/2024 Provider Migration Wheezing R06.2 Assessments Encounter [...] the evening); Duration: 90 days POTASSIUM CHLORIDE ([id number] M20) 20 MEQ TAKE 1 TABLET BY MOUTH EVERY DAY; Duration: 90 *Please review for potential replacement for e-prescription and drug interaction check* Next Appt Details Provider Name:Flavia Henry , 08/31/2024 11:30:00 AM, [address] [facility], [address], [place], [address], Progress Notes * Sy GILL SDOB: [birth year] (84 yo F)Acc No.[id number]:06/03/2024 Patient: Sy ASIF Provider: Briana roque Migration :1940 A ge:84 Y S ex:Female Date:06/03/2024 Address:[address] [place] [address] [place], [id number] Pcp:Sina Segura Subjective: * Chief Complaints: * 1 . Multum To [facility] Conversion Encounter. * Medical History: * Medications: [...] *Please review and pick correct strength-formulation from OpenRoute options. If intended option is not shown, discontinue and re-order from Quick Search*, Taking Aspirin Low Dose 81 MG Tablet Delayed Release 1 tab orally once a day , Taking MiraLax - POWDER FOR RECONSTITUTION ORALLY ONCE A DAY , Notes to Pharmacist: *Please review and pick correct strength-formulation from OpenRoute options. If intended option is not shown, discontinue and re-order from Quick Search*, Taking TUMERICK 500MG TABLET ONE TABLET ONCE A DAY , Notes to Pharmacist: *Please review for potential replacement for e-prescription and drug interaction check*, Taking Cyanocobalamin-Methylcobalamin , Notes to Pharmacist: 5000mcg-1 tablet once a day *Please review and pick correct strength-formulation from OpenRoute options. If intended option is not shown, discontinue and re-order from Quick Search*, Taking Multivitamin - Tablet 1 tab(s) orally once a day , Taking Fluticasone Propionate 50 MCG/ACT Suspension 2 sprays nasally once a day , Taking Nystatin 157970 UNIT/GM Powder 1 nilda applied topically 3 [...] 180, Refills 1; S tart POTASSIUM CHLORIDE ([id number] M20) TABLET, EXTENDED RELEASE, 20 MEQ, TAKE 1 TABLET BY MOUTH EVERY DAY, 90, 90 TABLET, Refills 0, Notes to Pharmacist: *Please review for potential replacement for e-prescription and drug interaction check*; S tart Furosemide Tablet, 40 MG, 1 tab(s), orally, once a day, 90 days, 90 Tablet, Refills 1. ? * * Electronic signature of Prov ider Migration on 08/30/2024 at 07:32 AM EDT Sign off status: Pending * Provider: Briana roque Migration Date: 0 06/03/2024 Generated for Corrina brito/Kirstin/Marli on: 0 08/30/2024 07:32 AM EDT
--- OUTSIDE RECORDS SUMMARY | 2024-07-06 06:30 | XMS_ITS ---
Author Organization [facility] Address [address] [facility] [address] [place] [address] Care Team Providers Care Naval Science Teacher Name Role Phone Sina Segura Primary Care Provider Flavia Gomez [phone] Allergies Allergen (clinical drug ingredient) Drug/Non Drug [...] date:07/10/2024 10:12:41 AM Interpretation: Performing Lab:CB, [facility] [address], [facility]bn[facility] Jacinto Vazquez Notes/Report: NON-FASTING; NON-FASTING; NON-FASTING FASTING:YES [...] LDL-C. Ricky SS et al. BOY. 2013;310(19): 0469-4113 (http://education.Fifty100.[employer]/faq/DSB961) CHOL/HDLC RATIO 3.2 <5.0 (calc) NON HDL CHOLESTEROL 128 <130 mg/dL (calc) For patients with diabetes plus 1 major ASCVD risk factor, treating to a non-HDL-C goal of <100 mg/dL (LDL-C of <70 mg/dL) is considered a therapeutic option. TSH W/REFLEX TO FT4 (55947) Reviewed date:07/10/2024 10:12:41 AM Interpretation: Performing Lab:[facility] [address], BTI [id number] Jacinto Vazquez Notes/Report: NON-FASTING; NON-FASTING; NON-FASTING FASTING:YES FASTING: YES TSH W/REFLEX TO FT4 1.25 0.40-4.50 mIU/L VITAMIN D,25-OH,TOTAL,IA (17 [id number]) Reviewed date:07/10/2024 10:12:41 AM Interpretation: Performing Lab:[facility] [employer], [id number] Jacinto Vazquez Notes/Report: NON-FASTING; NON-FASTING; NON-FASTING FASTING:YES [...] D, (D2,D3), LC/MS/MS is recommended: order code [id number] (patients >2yrs). See Note 1 Note 1 For additional information, please refer to http://education.ePaisa - Payments Anytime | Anywhere.[employer]/faq/AQT860 (This link is being provided for informational/ educational purposes only.) Reason For Referral Reason echo at [facility] Diagnosis 1 Mild aortic stenosis (I35.0) Referral Organization [facility] Referring Provider First Name Flavia Referring Provider Last Name Patricia Referring Provider Speciality Family Pra tessaice Referred Organization [facility] Referred Address [address] [place], [place],[address],[place] Referred Provider Specialty Diagnostic R adiology General Notes Geetha Rodriguez 2024 04:48:46 PM >sent to [facility] Referral Priority Routine REASON FOR VISIT Yearly Medications Medication SIG (Take, Route, Frequency, Duration) Notes Start Date End Date Status Zepbound 2.5 MG/0.5ML 0.5 mL Subcutaneou s once a week; Duration: 28 days 07/06/2024 Active Mucinex 600 MG 1 tab(s) orally every 12 hours Active COQ10 (OBSOLETE) 100 MG 1 CAP(S) ORALLY ONCE A DAY *Please review for potential replacement for e-prescription and drug interaction check* Active Lisinopril 5 MG 1 tab(s) orally once a day; Duration: 90 days Active HYDROcodone-Acetaminop hen 7.5-325 MG 1 tab(s) orally every 6 hours Active POTASSIUM CHLORIDE (AQS-TBXT-KZF M20) 20 MEQ TAKE 1 TABLET BY MOUTH EVERY DAY; Duration: 90 *Please review for potential replacement for e-prescription and drug interaction check* Active Furosemide 40 MG 1 tab(s) orally once a day; Duration: 90 days Active Klor-Con M20 20 MEQ 1 tablet with food Orally Once a day; Duration: 90 days Active Diclofenac Sodium 75 MG 1 tab(s) orally 2 times a day; Duration: 90 days Active Levocetirizine Dihydrochloride 5 MG 1 tab(s) orally once a day (in the evening); Duration: 90 days Active Combivent Respimat 20-100 MCG/ACT 1 puff(s) inhaled 4 times a day; Duration: 30 days Active Levothyroxine Sodium 100 MCG 1 tab(s) orally once a day; Duration: 90 days Active Cymbalta 60 MG 1 cap(s) orally once a day; Duration: 90 days Active Albuterol Sulfate HFA 108 (90 Base) MCG/ACT 2 puff(s) inhaled every 6 hours as needed for wheezing; Duration: 30 days 11/04/2023 Active Crestor 10 MG 1 tab(s) orally once a day (at bedtime); Duration: 90 days Active Multivitamin - 1 tab(s) orally once a day; Duration: 30 day(s) Active TUMERICK 500MG ONE TABLET ONCE A DAY *Please review for potential replacement for e-prescription and drug interaction check* Active Cyanocobalamin-Methylc obalamin 5000mcg-1 tablet once a day *Please review and pick correct strength-formulat ion from HandInScan options. If intended option is not shown, discontinue and re-order from Quick Search* Active Fluticasone Propionate 50 MCG/ACT 2 sprays nasally once a day; Duration: 30 day(s) 10/21/2017 Active Nystatin 694386 UNIT/GM 1 amaya applied topically 3 times a day; Duration: 14 days 08/25/2021 Active Aspirin Low Dose 81 MG 1 tab orally once a day Active MiraLax - ORALLY ONCE A DAY *Please review and pick correct strength-formulat ion from HandInScan options. If intended option is not shown, discontinue and re-order from Quick Search* Active Cephalexin 500 MG 1 cap(s) orally once a day Active Calcium-Vitamin D 600 MG-800 INTL UNITS 1TAB ORALLY TWICE DAILY *Please review and pick correct strength-formulat ion from HandInScan options. If intended option is not shown, [...] 07/06/2024 Encounters Encounter Location Date Provider Diagnosis [facility] [address] [place] [address] 07/06/2024 Flavia Gomez Hypothyroidism E03.9 ; Medicare annual wellness visit, [...] MG/0.5ML 0.5 mL Subcutaneou s once a week; Duration: 28 days 07/06/2024 Klor-Con M20 20 MEQ 1 tablet with food O rally Once a day; Duration: 90 days Treatment Notes Assessment Notes Chronic [...] Referral Date Details 07/06/2024 07/06/2024, echo at [facility], [address] [place], [address], Next Appt Details Follow Up: 6 Months, Reason: Provider Name:Flavia Henry ce, 08/31/2024 11:30:00 AM, [address], [address], [place], [address], Progress Notes * Sy BARLOW SDOB: 3 (84 yo F)Acc No.[id number]:07/06/2024 Progress Notes Patient: Sy ASIF Provider: ALMA Patel :1940 A ge:84 Y S ex:Female Date:07/06/2024 Address:[address] [place], [place] [address] [id number] Pcp:Sina Segura Subjective: * Chief Complaints: * 1 . Yearly. * HPI: g en: 84-year-old female presents today for annual wellness visit, medication refills, monitoring labs. She continues to be severely physically debilitated, wheelchair dependent and stands only to transfer from one location to another. She does continue to see Dr. Abdirashid KELLER. She sees Dr. Seo in [place], chronic pain management, takes hydrocodone as noted [...] llergies, osteoarthritis, followed by [facility], Hypercholestrolemia, sleep apnea on CPAP, Hypertension, Asthma, [...] Hospitalization/Major Diagno stic Procedure: b roken leg 2013, revision of lt knee replacement-[facility] 2014, [facility] then to [facility] x 5 months 2018, [facility] for surgery- then transferred to [facility] until 09/2019, [facility] [place] 07/2020. * Family History: F ather: . M other: . P aternal Grand Father: . P aternal Grand Mother: . M aternal Grand Father: . M aternal Grand Mother: . Siblings: alive. C hildren: alive. 2 brother(s) - healthy. 2 son(s) [...] *Please review and pick correct strength-formulation from Aethonspan options. If intended option is not shown, discontinue and re-order from Quick Search*, Taking Aspirin Low Dose 81 MG Tablet Delayed Release 1 tab orally once a day , Taking MiraLax - POWDER FOR RECONSTITUTION ORALLY ONCE A DAY , Notes to Pharmacist: *Please review and pick correct strength-formulation from HandInScan options. If intended option is not shown, discontinue and re-order from Quick Search*, Taking TUMERICK 500MG TABLET ONE TABLET ONCE A DAY , Notes to Pharmacist: *Please review for potential replacement for e-prescription and drug interaction check*, Taking Cyanocobalamin-Methylcobalamin , Notes to Pharmacist: 5000mcg-1 tablet once a day *Please review and pick correct strength-formulation from HandInScan options. If intended option is not shown, discontinue and re-order from Quick Search*, Taking Multivitamin - Tablet 1 tab(s) orally once a day , Taking Fluticasone Propionate 50 MCG/ACT Suspension 2 sprays nasally once a day , Taking Nystatin 547352 UNIT/GM Powder 1 amaya applied topically 3 [...] times a day , Taking POTASSIUM CHLORIDE (CMP-URRL-BRO M20) 20 MEQ TABLET, EXTENDED RELEASE TAKE [...] ormal Mood/Affect. Assessment: * Assessment: [facility]. [facility], subsequent - Z00.00 (Primary) [...] AM EDT ?LAB: TSH W/REFLEX TO FT4 ([id number]) (Collection Date & Time - 07/06/2024 11:28 AM)* Value Reference Range T SH W/REFLEX TO FT4 1.25 0.40-4.50 - mIU/L * Annabella Cruz 07/10/2024 10:12:23 AM EDT > Patient informedThis lab was reviewed by Annabella Cruz on 07/10/2024 at 10:12 AM EDT ?LAB: VITAMIN D,25-OH,TOTAL,IA ([id number]) (Collection Date & Time - 07/06/2024 11:28 [...] AM EDT ?LAB: TSH W/REFLEX TO FT4 ([id number]) (Collection Date & Time - 07/06/2024 11:28 AM)* Value Reference Range T SH W/REFLEX TO FT4 1.25 0.40-4.50 - mIU/L * Annabella Cruz 07/10/2024 10:12:23 AM EDT > Patient informedThis lab was reviewed by Annabella Cruz on 07/10/2024 at 10:12 AM EDT ?LAB: VITAMIN D,25-OH,TOTAL,IA ([id number]) (Collection Date & Time - 07/06/2024 11:28 [...] rec update echo which was last done 2018? Referral To:Diagnostic Radiology ?Reason:echo at [facility] 8.?Infection and inflammatory reaction due to other [...] AM EDT ?LAB: TSH W/REFLEX TO FT4 ([id number]) (Collection Date & Time - 07/06/2024 11:28 AM)* Value Reference Range T SH W/REFLEX TO FT4 1.25 0.40-4.50 - mIU/L * Annabella Cruz 07/10/2024 10:12:23 AM EDT > Patient informedThis lab was reviewed by Annabella Cruz on 07/10/2024 at 10:12 AM EDT ?LAB: VITAMIN D,25-OH,TOTAL,IA ([id number]) (Collection Date & Time - 07/06/2024 11:28 [...] due to age. C olonoscopy D r Lucio. B one mineral Density 2 017 at ACL. L mike Cancer Screening N ot indicated - nonsmoker. * Follow Up: 6 Months * * Sign off status: Completed Addendum: * true * Provider: ALMA Patel Date: 0 07/06/2024 Generated for Corrina brito/Kirstin/Keyshaitting on: 0 08/30/2024 07:33 AM EDT History and Physical Notes * Examination [...] es 07/06/2024 Flavia Gomez , princess at [facility]"
--- OUTSIDE RECORDS SUMMARY | 2024-07-06 12:47 | XMS_ITS ---
Author Organization [facility] Address [address] [facility] [address] [place] [address] Care Team Providers Care Driller Hand Name Role Phone Colton Sina Primary Care Provider Flavia Gomez [phone] Results Component Value Reference Range Notes Echocardiogram Reviewed date:07/28/2024 12:20:48 PM Interpretation: Performing Lab: Notes/Report: Encounters Encounter Location Date Provider Diagnosis [facility] [address] [facility] [address] [place] [address] 07/06/2024 Flavia Gomez Mild aortic stenosis I35.0 Assessments Encounter Date Diagnosis (ICD Code) Assessment Notes Treatment Notes Treatment Clinical Notes Section Notes 07/06/2024 Mild aortic stenosis (ICD-10 - I35.0) Plan Of Treatment Next Appt Details Provider Name:Flavia Henry ce, 08/31/2024 11:30:00 AM, [address] [facility], [address], [place], [place], [address], Progress Notes * Sy GILL SDOB: 3 (84 yo F)Acc No.[id number]:07/06/2024 Patient: Sy ASIF :1940 A ge:84 Y S ex:Female Address:[address] [place] [address] Subjective: * Chief Complaints: * * Medical History: * Surgical History: * Hospitalization/Major Diagno stic Procedure: * Medications: Objective: * Vitals: * Physical Examination: Assessment: * Assessment: 1. M ild aortic stenosis - I35.0 Plan: * Treatment: * * Procedure Codes: * true * Date: Generated for Corrina brito/Kirstin/Marli on: 0 08/30/2024 07:42 AM EDT
--- OUTSIDE RECORDS SUMMARY | 2024-08-05 17:30 | XMS_ITS ---
Author Organization [facility] dicine Address [address] [place] [address] Care Team Providers Care Spa Supervisor Name Role Phone Migration, Provider Unavailable Unavailable [...] Unknown Drug Allergy Active REAS[facility]IT [facility] Conversion Encounter Medications Medication SIG (Take, [...] review and pick correct strength[facility]ulat [facility]. If intended option is not shown, [...] review and pick correct strength-formulat ion from [employer] options. If intended option is not shown, [...] review and pick correct strength-formulat ion from [employer] options. If intended option is not shown, [...] review and pick correct strength-formulat ion from [employer] options. If intended option is not shown, [...] Active Encounters Encounter Location Date Provider Diagnosis [address] [address] 08/05/2024 Provider Migration Plan Of Treatment No Information Progress Notes * Chase BARLOWOB:1940 (84 yo F)Acc No.[id number]:08/05/2024 Patient: Nevin garcia Sy Provider: :1940 A ge:84 Y S ex:Female Date:08/05/2024 Address:[address] [place] [address] Subjective: * Chief Complaints: * M ultum [...] *Please review and pick correct strength-formulation from [employer] options. If intended option is not shown, [...] *Please review and pick correct strength-formulation from [employer] options. If intended option is not shown, [...] *Please review and pick correct strength-formulation from [employer] options. If intended option is not shown, discontinue and re-order from Quick Search*oxyCODONE HCl 5 MG Tablet 1 tab(s) orally every 6 hours , Notes to Pharmacist: prnPotassium Chloride 20MEQ 1XDAY PO , Notes to Pharmacist: *Please review and pick correct strength-formulation from [employer] options. If intended option is not shown, [...] *Please review and pick correct strength-formulation from [employer] options. If intended option is not shown, [...] *Please review and pick correct strength-formulation from [employer] options. If intended option is not shown, [...] *Please review and pick correct strength-formulation from [employer] options. If intended option is not shown, discontinue and re-order from Quick Search*Taking oxyCODONE HCl 5 MG Tablet 1 tab(s) orally every 6 hours , Notes to Pharmacist: prnTaking Potassium Chloride 20MEQ 1XDAY PO , Notes to Pharmacist: *Please review and pick correct strength-formulation from [employer] options. If intended option is not shown, [...] of Prov ider Migration on 08/30/2024 at 07:36 AM EDT Sign off status: Pending * Provider: Date: 08/05/2024 Generated for Corrina brito/Kirtsin/Keyshaitting on: 08/30/2024 07:36 AM EDT
--- OUTSIDE RECORDS SUMMARY | 2024-08-30 07:31 | XMS_ITS | Encounter Summary ---
Author Organization [employer] ([place], [place], [place], [place]) Address [address] [place] [address] Care Team Providers Care Child Caregiver Name Role Phone Unavailable Primary Care Provider Unavailabl e Encounter Details Date Type Department Care Team (Late st Contact Info) Description 08/26/2020 Transcribed Document [facility] [place] [address] ProviderMariela MD [place] [address] Social History Tobacco Use [...] Notes * Cerner Conversion Note - Mariela Gates MD - 08/26/2020 4:11 PM CDT Patient: SOFIA GILL Age: 80 [...] the insurance refused to send her to alf facility to continue her care and stated [...] EDT Chloraseptic Menthol 1.4% topical spray: 5 [place], Oral, [place], Q2H, PRN for Sore Throat, Routine, Start [...] EDT fluticasone 50 mcg/inh nasal spray: 2 [place], Nostrils Both, [place], BID, PRN for Allergies, Routine, Start 08/20/20 [...] Refill(s) fluticasone 50 mcg/inh nasal spray: 2 [place], Nostrils Both, [place], BID, PRN Allergies, 0 Refill(s) furosemide 40 [...] Oral, Daily fluticasone 0.05% nasal spray 2 [place], Nostrils Both, BID magnesium hydroxide 8% liq [...] Oral, Q4H phenol 1.4% throat spray 5 [place], Oral, Q2H senna 8.6 mg tab 8.6 [...] % 23.7 % Lymph # 2.60 K/uL [place] % 11.7 % [place] # 1.28 K/uL [place] Eos % 7.6 [...] fall risk and need to go to alf facility. documented in this encounter Plan of Treatment Not on file documented as of this encounter Visit Diagnoses Not on filedocumented in this encounter
--- OUTSIDE RECORDS SUMMARY | 2024-08-30 07:31 | XMS_ITS | Encounter Summary ---
Author Organization [employer] ([place], [place], [place], [place]) Address [address] [place] [address] Care Team Providers Care Bookkeeping Manager Name Role Phone Unavailable Primary Care Provider Unavailabl e Encounter Details Date Type Department Care Team (Late st Contact Info) Description 08/27/2020 Transcribed Document [facility] [place] [facility] [place] [address] ProviderMariela MD [address] [place] [address] Social History Tobacco Use Types [...] 08/27/2020 12:23 EDT Electronically signed by Chantal [facility] Conversion Centrifuge Separator Tender Cerner at 06/16/2022 8:06 PM CDT documented in this encounter Plan of Treatment Not on file documented as of this encounter Visit Diagnoses Not on filedocumented in this encounter
--- OUTSIDE RECORDS SUMMARY | 2024-08-30 07:31 | XMS_ITS | Encounter Summary ---
Author Organization [employer] ([place], [place], [place]) Address [address] [place] [address] Care Team Providers Care Drupal Web Developer Name Role Phone Unavailable Primary Care Provider Unavailabl e Encounter Details Date Type Department Care Team (Late st Contact Info) Description 08/26/2020 Transcribed Document [facility] [place] [address] ProviderMariela MD [address] [place] [address] Social History Tobacco Use Types [...] On: 08/26/2020 13:20 EDT by EDIN DRAKE OTR/Bartolo Discharge Summary, OT Reason for Discharge : Lack of progress/plateau Discharge Summary Comment, OT : see recent OT note for details. pt requires continued assistance due to her limitations/restrictions unclear of discharge destination, however pt not able to discharge home as she lived alone and is not able to care for self at this time. EDIN DRAKE OTR/Bartolo - 08/26/2020 13:20 EDT documented in this encounter Plan of Treatment Not on file documented as of this encounter Visit Diagnoses Not on filedocumented in this encounter
--- OUTSIDE RECORDS SUMMARY | 2024-08-30 07:31 | XMS_ITS | Encounter Summary ---
Author Organization [employer] ([place], [place], [place], [place]) Address [address] [place] [address] Care Team Providers Care Kettle Loader Name Role Phone Unavailable Primary Care Provider Unavailabl e Encounter Details Date Type Department Care Team (Late st Contact Info) Description 08/26/2020 Transcribed Document [facility] [place] [facility] [place] [address] ProviderMariela MD [facility] [place] [address] Social History Tobacco Use Types [...] Conversion Note - Historical ProviderMD - 08/26/2020 11:49 AM CDT Treatment Intervention, PT Entered On: 08/26/2020 12:00 EDT Performed On: 08/26/2020 11:49 EDT by Gabbie Calderon, Grinding Machine Tender General Information, PT Visit Type, PT : [...] activity permitted and NWB RLE Gabbie Calderon, Grinding Machine Tender - 08/26/2020 11:49 EDT General Status Patient Received Status : Long sitting in bed Treatment Start Time : 08/26/2020 11:12 EDT Patient Left Status : Long sitting in bed, RN/PCT informed, All needs met and within reach, Other: kirk stoddard RLE cast RN/PCT Informed Comment : RN okayed PT Treatment End Time : 08/26/2020 11:30 EDT Treatment Time : 18 Minute(s) Gabbie Calderon, Grinding Machine Tender - 08/26/2020 11:49 EDT Edu Topics Physical Therapy Education Grid Bed Mobility Training : Verbalizes understanding, Returns demonstration, Needs reinforcement Positioning : Verbalizes understanding, Returns demonstration Role of Physical Therapy : Verbalizes understanding, Returns demonstration Gabbie Calderon, Grinding Machine Tender - 08/26/2020 11:49 EDT Plan of Care, PT PT Tx Plan/Goals Established w Patient : Yes Gabbie Calderon, Grinding Machine Tender - 08/26/2020 11:49 EDT Fpc Goals Other PT LTG Grid Goal #1 [...] for bed MAX Ax2 08/26 Gabbie Calderon, Grinding Machine Tender - 08/26/2020 11:49 EDT Gabbie Calderon, Grinding Machine Tender - 08/26/2020 11:49 EDT Gabbie Calderon, Grinding Machine Tender - 08/26/2020 11:49 EDT Treatment Note Subjective [...] x2, cued to reach for OT for PORTAL ADMINISTRATOR required much assistance to move UE, and [...] Treatment : Continue PT POC Gabbie Calderon, Grinding Machine Tender - 08/26/2020 11:49 EDT Pain Assessment Pain Scaled Used : 0-10 Pain scale Pain Score Pre-Intervention : 0 Gabbie Calderon, Grinding Machine Tender - 08/26/2020 11:49 EDT Image 1 - Images currently included in the form version of this document have not been included in the text rendition version of the form. [place] PT Charges HOT MILL OBSERVER PT Ther Activities Ea 15 Min-HOT MILL OBSERVER : 1 Gabbie Calderon, Grinding Machine Tender - 08/26/2020 11:49 EDT documented in this encounter Plan of Treatment Not on file documented as of this encounter Visit Diagnoses Not on filedocumented in this encounter
--- OUTSIDE RECORDS SUMMARY | 2024-08-30 07:31 | XMS_ITS | Encounter Summary ---
Author Organization [employer] ([place], [place], [place], [place]) Address [address] [place] [address] Care Team Providers Care Manager Sales And Marketing Name Role Phone Unavailable Primary Care Provider Unavailabl e Encounter Details Date Type Department Care Team (Late st Contact Info) Description 08/26/2020 Transcribed Document [facility] [place] [facility] [place] [address] ProviderMariela [place] [address] Social History Tobacco Use Types [...] form. Electronically signed by Chantal, Maureen Conversion Senior Technical Specialist Cerner at 06/16/2022 8:03 PM CDT documented in this encounter Plan of Treatment Not on file documented as of this encounter Visit Diagnoses Not on filedocumented in this encounter
--- OUTSIDE RECORDS SUMMARY | 2024-08-30 07:31 | XMS_ITS | Encounter Summary ---
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 [...] PT/OT ???Released by PT/OT to go to snf facility ???Tolerating well oral p.o. intake ???No [...] EDT Chloraseptic Menthol 1.4% topical spray: 5 [place], Oral, [place], Q2H, PRN for Sore Throat, Routine, Start [...] EDT fluticasone 50 mcg/inh nasal spray: 2 [place], Nostrils Both, [place], BID, PRN for Allergies, Routine, Start 08/20/20 [...] Refill(s) fluticasone 50 mcg/inh nasal spray: 2 [place], Nostrils Both, [place], BID, PRN Allergies, 0 Refill(s) furosemide 40 [...] Oral, Daily fluticasone 0.05% nasal spray 2 [place], Nostrils Both, BID magnesium hydroxide 8% liq [...] Oral, Q4H phenol 1.4% throat spray 5 [place], Oral, Q2H senna 8.6 mg tab 8.6 [...] % 23.7 % Lymph # 2.60 K/uL [place] % 11.7 % [place] # 1.28 K/uL [place] Eos % 7.6 % [place] Eos # 0.83 K/uL [place] Baso % 0.2 % Baso # 0.02 K/uL Slide Review No IG# 0 x10(3)/uL IG% 0 % . Condition: Stable. Discharge Plan Discharge Summary Plan Discharge Status: stable. Orders Order Profile (Selected) Inpatient Orders Ordered Discharge Notification Pharmacy: Start: 08/27/20 12:23:32 EDT Discharge: Start: 08/27/20 12:23:00 EDT, Discharge to: Prison unit[facility]facility. Diagnosis Acute blood loss anemia - [...] & CLINICALLY STABLE AFEBRILE OK TO D/C snf facility to continue her care and rehab. [...] Refill(s) fluticasone 50 mcg/inh nasal spray: 2 [place], Nostrils Both, [place], BID, PRN Allergies, 0 Refill(s) furosemide 40 [...]
--- OUTSIDE RECORDS SUMMARY | 2024-08-30 07:31 | XMS_ITS | Encounter Summary ---
Author Organization [employer] ([place], [place], [place], [place]) Address [address] [place] [address] Care Team Providers Care Steam Plant Records Clerk Name Role Phone Unavailable Primary Care Provider Unavailabl e Encounter Details Date Type Department Care Team (Late st Contact Info) Description 08/27/2020 Transcribed Document [facility] [place] [facility] [place] [address] ProviderMariela MD [facility] [place] [address] Social History Tobacco Use Types [...] Cerner Conversion Note - Mariela ProviderMD - 08/27/2020 2:36 PM CDT On Going Discharge Planning Entered On: 08/27/2020 14:44 EDT Performed On: 08/27/2020 14:36 EDT by ADALBERTO BEE RN Care Management Progress Note Discharge Arrangements : Patient Post-Acute Information Patient Name: SOFIA GILL Gender: Female : 44 Age: 80 Years [place] Referral(s): Service: Organization: Business Address: Phone Number: [facility] at [address], [place], [address] Discharge Options Discussed with Patient : Discharge transportation, DME, rn long term care rehabilitation Barriers to Discharge Identified : No transportation available Barriers to Discharge Unresolved : No transportation available Designation of Choice Signed : Yes Patient Offered Choice/Affiliations Explained : Yes List/Info Provided Pt/Fam/Support Person : Durable medical equipment, penitentiary facilities Were Referrals Sent to Post Acute [...] denied patient for rehab. [facility]le [facility] spoke to patient and she can go Self pay. Patient will be going to [facility]. [facility] set up for 10 am on WednesdayAugust 28. Silva at [facility] notified of patient going to SNF per Esteban pharmacist. Scripts will be faxed over to Pharmacy [facility]. Case Management will continue to follow patient til discharge. CALL REPORT TO AND FAX DISCHARGE SUMMARY TO . Ram[facility]ell will pick patient up on 08/28/20 at 10am via stretcher. REF# [id number]. ADALBERTO BEE RN - 08/27/2020 14:46 EDT Historical Progress Note : Per MDR's patient not ready to be discharged yet. Pending preautorization at [facility]. Called and spoke with Richard and [...] wants to go to Rehab and [facility] or [place]. Referral faxed via Mike and isabelle notified. 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 DME: patient has a wc, showerchair and a walker at home. CM: case dontrell will continue to follow patient TRANS: will need an [facility] to transport patient there. ADALBERTO BEE RN - 08/21/20 14:06:04 ADALBERTO BEE RN - 08/27/2020 14:36 EDT documented in this encounter Plan of Treatment Not on file documented as of this encounter Visit Diagnoses Not on filedocumented in this encounter
--- OUTSIDE RECORDS SUMMARY | 2024-08-30 07:31 | XMS_ITS | Encounter Summary ---
Author Organization [employer] ([place], [place], [place], [place]) Address [address] [place] [address] Care Team Providers Care Steffen House Supervisor Name Role Phone Unavailable Primary Care Provider Unavailabl e Encounter Details Date Type Department Care Team (Late st Contact Info) Description 08/26/2020 Transcribed Document [facility] [place] Family Medicine [facility] [place] [address] ProviderMariela MD [address] [place] [address] Social History Tobacco Use Types [...] Policy Numbers : Insurance 1 Health Plan: [facility] MEDICARE ADVANTAGE Policy Number: [id number] Authorization Number: [id number] Insurance Primary Name : [facility] MEDICARE ADVANTAGE Policy Number: [id number] Authorization Status-Primary : Admit approved Reference Number-Primary : [id number] Authorization Number-Primary : [id number] Number of Days Authorized-Primary : 0 Day(s) Authorized Service Begin Date-Primary : 08/20/2020 EDT Authorized Service End Date-Primary : 08/20/2020 EDT Authorization Comments-Primary : Uploaded cont stay clinicals (08/22-08/26/20) to [facility] Medicare via [employer]. Historical Authorization Comments-Primary : Comment 1: Uploaded cont stay clinicals (08/21/20) to [facility] Medicare via [employer]. (KARAN WATSON, RN-Utilization Review 08/21/2020 08:36) Comment 2: Note on [facility] website:Patient was initially scheduled for Right Patellar [...] AQUINO RN-Utilization Review 08/19/2020 15:20) Comment 3: [facility] Medicare approved per website for 1 day (TIESHA AQUINO RN-Utilization Review 08/19/2020 15:14) KARAN WATSON RN-Utilization Review - 08/26/2020 10:04 EDT documented in this encounter Plan of Treatment Not on file documented as of this encounter Visit Diagnoses Not on filedocumented in this encounter
--- OUTSIDE RECORDS SUMMARY | 2024-08-30 07:31 | XMS_ITS | Encounter Summary ---
Author Organization [employer] ([place], [place], [place], [place]) Address [address] [place] [address] Care Team Providers Care Membership Coordinator Name Role Phone Unavailable Primary Care Provider Unavailabl e Encounter Details Date Type Department Care Team (Late st Contact Info) Description 08/27/2020 Transcribed Document [facility] [place] [address] [place] [address] ProviderMariela MD [address] [place] [address] Social History Tobacco Use [...] 08/27/2020 18:35 EDT Electronically signed by Chantal [facility] Conversion Public Address System Installer Min at 06/16/2022 8:12 PM CDT documented in this encounter Plan of Treatment Not on file documented as of this encounter Visit Diagnoses Not on filedocumented in this encounter
--- OUTSIDE RECORDS SUMMARY | 2024-08-30 07:31 | XMS_ITS | Encounter Summary ---
Author Organization [employer] ([place], [place], [place], [place]) Address [address] [place] [address] Care Team Providers Care Patient Care Manager Name Role Phone Unavailable Primary Care Provider Unavailabl e Encounter Details Date Type Department Care Team (Late st Contact Info) Description 08/26/2020 Transcribed Document [facility] [place] Family Medicine [address] [place] [address] ProviderMariela MD [address] [place] [address] Social History Tobacco Use Types [...] EDT Performed On: 08/26/2020 5:00 EDT by hCinyere Littlejohn RN-PATIENT CARE BEDSIDE NON-EXEMPT Chart Check [...]
--- OUTSIDE RECORDS SUMMARY | 2024-08-30 07:31 | XMS_ITS | Encounter Summary ---
Author Organization [employer] ([place], [place], [place], [place]) Address [address] [place] [address] Care Team Providers Care Grades 1 Thru 6 Home Teacher Name Role Phone Unavailable Primary Care Provider Unavailabl e Encounter Details Date Type Department Care Team (Late st Contact Info) Description 08/26/2020 Transcribed Document [facility] [place] [facility] [place] [address] ProviderMariela MD [facility] [address] Social History Tobacco Use Types [...] Note - Mariela Gates MD - 08/26/2020 4:15 PM CDT Patient: SOFIA GILL Age: 80 [...] / Management Condition: Stable. Impression and Plan documented in this encounter Plan of Treatment Not on file documented as of this encounter Visit Diagnoses Not on filedocumented in this encounter
--- OUTSIDE RECORDS SUMMARY | 2024-08-30 07:31 | XMS_ITS | Encounter Summary ---
Author Organization [employer] ([place], [place], [place], [place]) Address [address] [place] [address] Care Team Providers Care Route Salesman And Driver Name Role Phone Unavailable Primary Care Provider Unavailabl e Encounter Details Date Type Department Care Team (Late st Contact Info) Description 08/26/2020 Transcribed Document [facility] [place] [facility] [place] [address] ProviderMariela MD [facility] [place] [address] Social History Tobacco Use Types [...] form. Electronically signed by Maureen Cornejo Conversion Power Generation Technician Cerner at 06/16/2022 8:20 PM CDT documented in this encounter Plan of Treatment Not on file documented as of this encounter Visit Diagnoses Not on filedocumented in this encounter
--- OUTSIDE RECORDS SUMMARY | 2024-08-30 07:31 | XMS_ITS | Encounter Summary ---
Author Organization [employer] ([place], [place], [place], [place]) Address [address] [place] [address] Care Team Providers Care Quality Supervisor Name Role Phone Unavailable Primary Care Provider Unavailabl e Encounter Details Date Type Department Care Team (Late st Contact Info) Description 08/27/2020 Transcribed Document [facility] [place] Family Medicine [address] [place] [address] ProviderMariela MD [address] [place] [address] Social History Tobacco Use Types [...]
--- OUTSIDE RECORDS SUMMARY | 2024-08-30 07:31 | XMS_ITS | Encounter Summary ---
Author Organization [employer] ([place], [place], [place], [place]) Address [address] [place] [address] Care Team Providers Care Head Sampler Name Role Phone Unavailable Primary Care Provider Unavailabl e Encounter Details Date Type Department Care Team (Late st Contact Info) Description 08/27/2020 Transcribed Document [facility] [place] Family Medicine [address] [place] [address] ProviderMariela MD [address] [place] [address] Social History Tobacco Use Types [...] EDT Performed On: 08/27/2020 5:00 EDT by Jessica Ovalle Lpn Chart Check Powerplans Initiated/Discontinued as Appropriate : Yes All Active Orders Reviewed : Yes Jessica Ovalle Lpn - 08/27/2020 6:50 EDT documented in this encounter Plan of Treatment Not on file documented as of this encounter Visit Diagnoses Not on filedocumented in this encounter
--- OUTSIDE RECORDS SUMMARY | 2024-08-30 07:31 | XMS_ITS | Encounter Summary ---
Author Organization [employer] ([place], [place], [place], [place]) Address [address] [place] [address] Care Team Providers Care Wind Turbine Mechanic Name Role Phone Unavailable Primary Care Provider Unavailabl e Encounter Details Date Type Department Care Team (Late st Contact Info) Description 08/26/2020 Transcribed Document [facility] [place] Family Medicine [facility] [place] [address] ProviderMariela MD [facility] [place] [address] Social History Tobacco Use Types [...] Historical ProviderMD - 08/26/2020 2:00 AM CDT Collar Turner Operator Details Entered On: 08/26/2020 1:33 EDT Performed [...] CARE BEDSIDE NON-EXEMPT - 08/26/2020 1:33 EDT Electronically signed by Maureen Cornejo Conversion Information Technology Administrator Min at 06/16/2022 8:30 PM CDT documented in this encounter Plan of Treatment Not on file documented as of this encounter Visit Diagnoses Not on filedocumented in this encounter
--- OUTSIDE RECORDS SUMMARY | 2024-08-30 07:32 | XMS_ITS | Encounter Summary ---
Author Organization [employer] ([place], [place], [place], [place]) Address [address] [place] [address] Care Team Providers Care Vendor Specialist Name Role Phone Unavailable Primary Care Provider Unavailabl e Encounter Details Date Type Department Care Team (Late st Contact Info) Description 08/28/2020 Transcribed Document [facility] [place] [facility] [place] [address] ProviderMariela MD [address] [place], [place] [address] Social History Tobacco Use Types Packs/Day Years [...] Kim Carpenter RN - 08/28/2020 10:18 EDT Electronically signed by Chantal [facility] Conversion Lead Sharepoint Developer Cerner at 06/16/2022 8:23 PM CDT documented in this encounter Plan of Treatment Not on file documented as of this encounter Visit Diagnoses Not on filedocumented in this encounter
--- OUTSIDE RECORDS SUMMARY | 2024-08-30 07:32 | XMS_ITS | Encounter Summary ---
Author Organization [employer] ([place], [place], [place], [place]) Address [address] [place] [address] Care Team Providers Care Engineer Technical Staff Name Role Phone Unavailable Primary Care Provider Unavailabl e Encounter Details Date Type Department Care Team (Late st Contact Info) Description 08/27/2020 Transcribed Document [facility] [place] Family Medicine [facility] [place] [address] ProviderMariela MD [facility] [place] [address] Social History Tobacco Use Types [...]
--- OUTSIDE RECORDS SUMMARY | 2024-08-30 07:32 | XMS_ITS | Encounter Summary ---
Author Organization [employer] ([place], [place], [place], [place]) Address [address] [place] [address] Care Team Providers Care Refractory Grinder Operator Name Role Phone Unavailable Primary Care Provider Unavailabl e Encounter Details Date Type Department Care Team (Late st Contact Info) Description 07/17/2019 Transcribed Document [facility] [place] Family Medicine [facility] [place] [address] ProviderMariela MD [address] [place] [address] Social History Tobacco Use Types Packs/Day [...] Conversion Note - Mariela ProviderMD - 07/17/2019 9:00 AM CDT Pain Assessment Entered On: 07/17/2019 10:30 EDT Performed On: 07/17/2019 9:44 EDT by Marisela Rangel RN Intervention Information: indomethacin Performed by Marisela Rangel RN on 07/17/2019 08:44:00 EDT indomethacin,25mg Oral [...]
--- OUTSIDE RECORDS SUMMARY | 2024-08-30 07:32 | XMS_ITS | Encounter Summary ---
Author Organization [employer] ([place], [place], [place], [place]) Address [address] [place] [address] Care Team Providers Care Housekeeping Laundry Worker Name Role Phone Unavailable Primary Care Provider Unavailabl e Encounter Details Date Type Department Care Team (Late st Contact Info) Description 08/21/2020 Transcribed Document [facility] [place] Family Medicine [facility] [place] [address] ProviderMariela MD [facility] [place] [address] Social History Tobacco Use Types [...] Cerner Conversion Note - Mariela ProviderMD - 08/21/2020 12:55 PM CDT Patient: SY BARLOW Age: 80 Years Sex: Female : 1940 Discharge Disposition Ortho Discharge Summary Addendum Discharge: Facility Procedure: [facility] TKA REV w extensor tendon repair Complications: None DVT Prophylaxis: Aspirin 81 mg tabs, 1 BID for 45 days. Script written, on chart WB Status: NWB Therapy goals: keep cast c/d/i, NWB, USE LEG POLICE COMMUNICATIONS OPERATOR F/U in clinic 2-3 weeks Discharge Instructions: [...] Daily fluticasone 50 mcg/inh nasal spray 2 [place], PRN, Nostrils Both, BID furosemide 40 mg [...]
--- OUTSIDE RECORDS SUMMARY | 2024-08-30 07:32 | XMS_ITS | Encounter Summary ---
Author Organization [employer] ([place], [place], [place], [place]) Address [address] [place] [address] Care Team Providers Care Terminal Block Assembler Name Role Phone Unavailable Primary Care Provider Unavailabl e Encounter Details Date Type Department Care Team (Late st Contact Info) Description 08/21/2020 Transcribed Document [facility] [place] [facility] [place] [address] ProviderMariela MD [address] [place] [address] Social History Tobacco Use Types [...] lowe Emergency Contact #2 Phone Number : [phone] Emergency Contact #2 Relationship : son Enter [...] 08/22/2020 EDT Anticipated Discharge To, CM : senior care facility Current Home Treatment/Equipment : Current Home [...] Discussed with Patient : Discharge transportation, DME, terminologist rehabilitation ADALBERTO BEE RN - 08/21/2020 13:57 [...] wants to go to Rehab and choose [place] [facility] or [facility]. Referral faxed via Mike and brooke notified. 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 DME: patient has a wc, showerchair and a walker at home. CM: jevon jon will continue to follow patient TRANS: will need an [facility] to transport patient there. ADALBERTO BEE RN - 08/21/2020 14:03 EDT documented in this encounter Plan of Treatment Not on file documented as of this encounter Visit Diagnoses Not on filedocumented in this encounter
--- OUTSIDE RECORDS SUMMARY | 2024-08-30 07:32 | XMS_ITS | Encounter Summary ---
Author Organization [employer] ([place], [place], [place], [place]) Address [address] [place] [address] Care Team Providers Care Returns Processor Name Role Phone Unavailable Primary Care Provider Unavailabl e Encounter Details Date Type Department Care Team (Late st Contact Info) Description 07/16/2019 Transcribed Document [facility] [place] [address] [place] [address] ProviderMariela MD [address], [place] [id number] Social History Tobacco Use Types Packs/Day Years [...] TIM CHOW RN - 07/16/2019 18:16 EDT Electronically signed by Nikunj Cornejo Conversion Software Engineer Web Applications Min at 06/16/2022 8:14 PM CDT documented in this encounter Plan of Treatment Not on file documented as of this encounter Visit Diagnoses Not on filedocumented in this encounter
--- OUTSIDE RECORDS SUMMARY | 2024-08-30 07:32 | XMS_ITS | Encounter Summary ---
Author Organization [employer] ([place], [place], [place], [place]) Address [address] [place] [address] Care Team Providers Care Associate Programmer Name Role Phone Unavailable Primary Care Provider Unavailabl e Encounter Details Date Type Department Care Team (Late st Contact Info) Description 08/21/[address] [facility] [place] Family Medicine [facility] [place] [address] ProviderMariela MD [address] [place] [address] Social History Tobacco Use Types Packs/Day [...] Conversion Note - Historical ProviderMD - 08/21/2020 11:06 AM CDT Treatment Intervention, [...] WM MORROW PTA - 08/25/2020 11:20 EDT [place] Goals Other PT LTG Grid Goal #1 [...] ceiling lift used for bed to chair ODALYS BOBO BURK - 08/25/2020 11:20 EDT WM MORROW PTA - 08/25/2020 11:20 EDT WM MORROW PTA - 08/25/2020 11:20 EDT Treatment Note Subjective [...] participate. Plan for Treatment : Cont .PT ODALYS BOBO BURK - 08/25/2020 11:20 EDT [place] PT Charges COIL PLACER PT Ther Activities Ea 15 Min-COIL PLACER : 1 MORROW BOBO BURK - 08/25/2020 11:20 EDT documented in this encounter Plan of Treatment Not on file documented as of this encounter Visit Diagnoses Not on filedocumented in this encounter
--- OUTSIDE RECORDS SUMMARY | 2024-08-30 07:32 | XMS_ITS | Encounter Summary ---
Author Organization [employer] ([place], [place], [place], [place]) Address [address] [place] [address] Care Team Providers Care Filenet Architect Name Role Phone Unavailable Primary Care Provider Unavailabl e Encounter Details Date Type Department Care Team (Late st Contact Info) Description 07/15/2019 Transcribed Document [facility] [place] Family Medicine [address] [place] [address] ProviderMariela MD [address] [place] [id number] Social History Tobacco Use Types Packs/Day Years [...]
--- OUTSIDE RECORDS SUMMARY | 2024-08-30 07:32 | XMS_ITS | Encounter Summary ---
Author Organization [employer] ([place], [place], [place], [place]) Address [address] [place] [address] Care Team Providers Care Director Business Name Role Phone Unavailable Primary Care Provider Unavailabl e Encounter Details Date Type Department Care Team (Late st Contact Info) Description 07/17/2019 Transcribed Document [facility] [place] [facility] [place] [address] ProviderMariela MD [address] [place] [address] Social History Tobacco Use Types [...]
--- OUTSIDE RECORDS SUMMARY | 2024-08-30 07:32 | XMS_ITS | Encounter Summary ---
Author Organization [employer] ([place], [place], [place], [place]) Address [address] [place] [address] Care Team Providers Care District Sales Coordinator Name Role Phone Unavailable Primary Care Provider Unavailabl e Encounter Details Date Type Department Care Team (Late st Contact Info) Description 07/15/2019 Transcribed Document [facility] [place] [facility] [place] [address] ProviderMariela MD [address] [place] [address] Social History Tobacco Use Types Packs/Day Years [...] OSMAR AREVALO RN - 07/16/2019 3:28 EDT documented in this encounter Plan of Treatment Not on file documented as of this encounter Visit Diagnoses Not on filedocumented in this encounter
--- OUTSIDE RECORDS SUMMARY | 2024-08-30 07:32 | XMS_ITS | Encounter Summary ---
Author Organization [employer] ([place], [place], [place], [place]) Address [address] [place] [address] Care Team Providers Care Film Developing Machine Operator Name Role Phone Unavailable Primary Care Provider Unavailabl e Encounter Details Date Type Department Care Team (Late st Contact Info) Description 07/16/2019 Transcribed Document [facility] [place] Family Medicine [facility] [place] [address] ProviderMariela MD [address] [place] [id number] Social History Tobacco Use Types Packs/Day Years [...] Conversion Note - Mariela Gates MD - 07/16/2019 7:01 PM CDT Patient: SOFIA GILL Age: 79 [...] 0.9% 100 mL 2 Gram, IV Piggyback, [id number] cyanocobalamin 1,000 mcg tab 5,000 mcg 5 [...] Oral, Q4H fluticasone 0.05% nasal spray 2 [place], Nostrils Both, BID magnesium hydroxide 8% liq [...] as recommended by infectious disease. Wound care. [place] removal if okay with .to [facility] facility in a.m. if stable. Orders Order [...]
--- OUTSIDE RECORDS SUMMARY | 2024-08-30 07:32 | XMS_ITS | Encounter Summary ---
Author Organization [employer] ([place], [place], [place], [place]) Address [address] [place] [address] Care Team Providers Care Political Science Faculty Member Name Role Phone Unavailable Primary Care Provider Unavailabl e Encounter Details Date Type Department Care Team (Late st Contact Info) Description 08/21/2020 Transcribed Document [facility] [place] [address] [place] [address] ProviderMariela MD [address] [place] [address] Social History Tobacco Use Types [...] Hannah Cardoso, RN - 08/21/2020 6:27 EDT documented in this encounter Plan of Treatment Not on file documented as of this encounter Visit Diagnoses Not on filedocumented in this encounter
--- OUTSIDE RECORDS SUMMARY | 2024-08-30 07:32 | XMS_ITS | Patient Health Record ---
Author Organization [facility] Address [address] [facility] [address] [place] [address] Care Team Providers Care Environmental Remediation Specialist Name Role Phone Sina Segura Primary Care Provider Flavia Gomez Unavailable [phone] Migration, Provider Unavailable Unavailable Allergies Allergen (clinical [...] date:07/10/2024 10:12:41 AM Interpretation: Performing Lab:[facility], [facility] [id number] [facility], [facility]xtjJQ[address] Jacinto Vazquez Notes/Report: NON-FASTING; NON-FASTING; NON-FASTING FASTING:YES [...] D, (D2,D3), LC/MS/MS is recommended: order code 11444 (patients >2yrs). See Note 1 Note 1 For additional information, please refer to http://education.[facility] [employer]/faq/PWF999 (This link is being provided for informational/ educational purposes only.) TSH W/REFLEX TO FT4 (57047) Reviewed date:07/10/2024 10:12:41 AM Interpretation: Performing Lab:[facility], [facility] [address], [place] FmynKW[address] Jacinto Vazquez Notes/Report: NON-FASTING; NON-FASTING; NON-FASTING FASTING:YES FASTING: YES TSH W/REFLEX TO FT4 1.25 0.40-4.50 mIU/L LIPID PANEL, STANDARD (7600) Reviewed date:07/10/2024 10:12:41 AM Interpretation: Performing Lab:[facility] [address], [employer].HghdNF[address] Jacinto Vazquez Notes/Report: NON-FASTING; NON-FASTING; NON-FASTING FASTING:YES [...] LDL-C. Ricky FORMAN et al. BOY. 2013;310(19): 6155-9396 (http://education.[employer]/faq/DIX364) CHOL/HDLC RATIO 3.2 <5.0 (calc) NON HDL [...] a week; Duration: 28 days 07/06/2024 Active Multivitamin - 1 tab(s) orally once a day; Duration: 30 day(s) Active Furosemide 40 MG 1 tab(s) orally once a day; Duration: 90 days Active Aspirin Low Dose 81 MG 1 tab orally once a day Active Combivent Respimat 20-100 MCG/ACT 1 puff(s) inhaled 4 times a day; Duration: 30 days Active MiraLax - ORALLY ONCE A DAY *Please review and pick correct strength-formulat ion from Graffiti options. If intended option is not shown, discontinue and re-order from Quick Search* Active Levocetirizine Dihydrochloride 5 MG 1 tab(s) orally once a day (in the evening); Duration: 90 days Active Cephalexin 500 MG 1 cap(s) orally once a day Active Calcium-Vitamin D 600 MG-800 INTL UNITS 1TAB ORALLY TWICE DAILY *Please review and pick correct strength-formulat ion from Graffiti options. If intended option is not shown, discontinue and re-order from Quick Search* Active Mucinex 600 MG 1 tab(s) orally every 12 hours Active Albuterol Sulfate HFA 108 (90 Base) MCG/ACT 2 puff(s) inhaled every 6 hours as needed for wheezing; Duration: 30 days 11/04/2023 Active Doxycycline Hyclate 100 MG 1 cap(s) orally once a day Active COQ10 (OBSOLETE) 100 MG 1 CAP(S) ORALLY ONCE A DAY *Please review for potential replacement for e-prescription and drug interaction check* Active Fluticasone Propionate 50 MCG/ACT 2 sprays nasally once a day; Duration: 30 day(s) 10/21/2017 Active Lisinopril 5 MG 1 tab(s) orally once a day; Duration: 90 days Active HYDROcodone-Acetaminop hen 7.5-325 MG 1 tab(s) orally every 6 hours Active Nystatin 188395 UNIT/GM 1 nilda applied topically 3 times a day; Duration: 14 days 08/25/2021 Active Klor-Con M20 20 MEQ 1 tablet with food Orally Once a day; Duration: 90 days Active Levothyroxine Sodium 100 MCG TAKE 1 TABLET DAILY Active Cymbalta 60 MG 1 cap(s) orally once a day; Duration: 90 days Active TUMERICK 500MG ONE TABLET ONCE A DAY *Please review for potential replacement for e-prescription and drug interaction check* Active Cyanocobalamin-Methylc obalamin 5000mcg-1 tablet once a day *Please review and pick correct strength-formulat ion from Graffiti options. If intended option is not shown, discontinue and re-order from Quick Search* Active Rosuvastatin Calcium 10 mg TAKE 1 TABLET DAILY AT BEDTIME Active Diclofenac Sodium 75 MG 1 tab(s) orally 2 times a day; Duration: 90 days Active Immunizations Vaccine Route Administration Date Status Comme nts Zostavax (Shingles) SC Subcutaneous 12/07/2007 Administere d SHINGRIX IM Intramuscular 01/22/2019 Administered Prevnar PCV-13 (Pneumococcal conjugate 13) IM Intramuscular 04/08/2017 Administered Influenza-Fluzone 3+years (NON-MEDICARE) IM Intramuscular 11/13/2015 Administered Influenza (Fluzone)--Medicare only IM Intramuscular 12/05/2014 Administered Influenza (Fluzone)--Medicare only IM Intramuscular 10/21/2017 Administered H1N1 Vaccine IM Intramuscular 02/14/2009 Administered Fluzone High Dose IM Intramuscular 11/09/2019 Administered Fluzone High Dose IM Intramuscular 01/14/2023 Administered Arexvy IM Intramuscular 01/14/2023 Administered Fluvirin--Influenza vaccine 3+ year IM Intramuscular 12/13/2006 Administered Fluvirin--Influenza vaccine 3+ year IM Intramuscular 01/13/2008 Administered Fluvirin--Influenza vaccine 3+ year IM Intramuscular 11/13/2011 Administered Problems Problem Type SNOMED Code ICD Code Onset Dates Problem Status W/U Status Risk Notes Problem Obstructive sleep apnea syndrome (disorder) (73396955) Obstructive sleep apnea (adult) (pediatric) (G47.33) Active confirmed Problem Chronic postoperative pain (104269250517142) Other chronic postprocedural pain (G89.28) Active confirmed Problem Seasonal allergic rhinitis (901006896) Other seasonal allergic rhinitis (J30.2) Active confirmed Problem Allergic rhinitis (07072390) Other allergic rhinitis (J30.89) Active confirmed Problem Pain of left knee joint (finding) (188568161689366) Pain in left knee (M25.562) Active confirmed Problem Sciatica (05927646) Sciatica, unspecified side (M54.30) Active confirmed Problem Postmenopausal bleeding (56294684) Postmenopausal bleeding (N95.0) Active confirmed Problem Late effect of medical and surgical care complication (752714029) Infection and inflammatory reaction due to other internal joint prosthesis, sequela (T84.59XS) Active confirmed Problem Artificial knee joint present (025102950028) Presence of unspecified artificial knee joint (Z96.659) Active confirmed Problem Dependence on enabling machine or device (520401568) Dependence on other enabling machines and devices (Z99.89) Active confirmed Problem Hyperlipidaemia (44818254) HLD (hyperlipidemia) (E78.5) Active confirmed Problem Gastroesophageal reflux disease (838155339) GERD (gastroesophageal reflux disease) (K21.9) Active confirmed Problem Hypothyroidism (06129417) Hypothyroidism (E03.9) Active confirmed Problem Gout (92292058) Gout (M10.9) Active confirmed Problem Venous insufficiency of leg (disorder) (412998006) Venous insufficiency (I87.2) Active confirmed Problem Essential hypertension (74185789) HTN (hypertension), benign (I10) Active confirmed Problem Hypokalemia (85230615) Hypokalemia due to loss of potassium (E87.6) Active confirmed Problem Lymphedema (68593287) Lymphedema (I89.0) Active confirmed Problem Body mass index 40+ - morbidly obese (207659910) BMI 40.0-44.9, adult (Z68.41) Active confirmed Problem Arthropathy (444451375) Arthritis involving multiple sites (M12.9) Active confirmed Problem 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 (281647033676100) Coronary artery disease involving chickal[place] coronary artery of chickal[place] heart without angina pectoris (I25.10) Active confirmed Problem Osteoarthritis of knee (657397589) Primary osteoarthritis of right knee (M17.11) Active confirmed Problem Recurrent falls (513992834) Recurrent falls (R29.6) Active confirmed Problem Neuropathic pain (231566061) Neuropathic pain (M79.2) Active confirmed Problem Hypoalbuminemia (495697381) Hypoalbuminemia (E88.09) Active confirmed Problem Internal derangement of left knee (93330006474524744) Internal derangement of left knee (M23.92) Active confirmed Problem Recurrent falls (666649440) Falls frequently (R29.6) Active confirmed Problem Aortic stenosis, non-rheumatic (765205343) Nonrheumatic aortic valve stenosis (I35.0) Active confirmed Problem Chronic venous insufficiency (68221582) Chronic venous insufficiency (I87.2) Active confirmed Problem Left anterior kn ee pain (M25.562) Active confirmed Problem Malaise (477961719) Physical khushboo ility (R53.81) Active confirmed Problem Disorder of kidney and/or ureter (936963418) Right renal mass (N28.89) Active confirmed Problem Seasonal allergic rhinitis (582158781) Acute seasonal allergic rhinitis (J30.2) Active confirmed Problem Postmenopausal osteoporosis (843739189) 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) Active confirmed Problem 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 Problem Seasonal allergic rhinitis (291354532) Seasonal allergic rhinitis, unspecified trigger (J30.2) Active confirmed Problem Aortic valve disorder (8247740) Mild aortic stenosis (I35.0) Active confirmed Problem Solitary pulmonary nodule (528805355) Right lower lobe pulmonary nodule (R91.1) Active confirmed Problem Osteopenia following menopause (disorder) (707108815) 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) Active confirmed Problem Hypoproteinemia (6829937) Hypoproteinemia (E77.8) Active confirmed Problem Aortic valve disorder (2304781) Aortic stenosis, severe (I35.0) Active confirmed Problem Internal derangement of right knee (20496276063001218) Internal derangement of right knee (M23.91) Active confirmed Problem Late effect of medical and surgical care complication (599989144) Infected hardware in left lower extremity, sequela (T84.7XXS) Active confirmed Problem Morbid obesity (872728767) Obesity, morbid (more than 100 lbs over ideal weight or BMI > 40) (E66.01) Active confirmed Vital Signs Heart Rate 80 /min 07/06/2024 Temperature 97.3 degrees Fahrenheit 07/06/2024 Blood pressure diastolic 72 LL arm mm Hg 07/06/2024 Height 59 in 07/06/2024 Blood pressure systolic 110 mm Hg 07/06/2024 Weight 200 lbs 07/06/2024 BMI 40.39 kg/m2 07/06/2024 Encounters Encounter Location Date Provider Diagnosis [facility] [address] [facility] [address] [place], [place] [address] 06/03/2024 Provider Migration Wheezing R06.2 [facility] [address] [facility] [address] [place], [place] [address] 10/26/2023 Flaviaporfirio ChinPatricia Wheezing R06.2 ; Multiple lipomas D17.9 ; Chronic venous insufficiency I87.2 ; Lymphedema I89.0 and Physical debility R53.81 [facility] [address] [facility] [address] [place], [place] [address] 02/17/2024 Flavia Chinence Wheezing R06.2 ; IFG (impaired fasting glucose) R73.01 and Obesity, morbid (more than 100 lbs over ideal weight or BMI > 40) E66.01 [facility] [address] [facility] [address] [place], [place] [address] 07/06/2024 Flavia Gomez Hypothyroidism E03.9 ; Medicare [...] BMI 40.0-44.9, adult Z68.41 and Hypokalemia E87.6 [facility] [address] [facility] [address] [place], [place] [address] 11/04/2023 Flavia Chinence Wheezing R06.2 [facility] [address] [facility] [address] [place] [address] 07/06/2024 Flavia Chinence [facility] [address] [place] [address] 07/06/2024 Flavia Gomez Mild aortic stenosis I35.0 [facility] [address] [place] [address] 07/25/2024 Flavia Gomez [facility] [address] [place] [address] 07/28/2024 Sina Colton [facility] [address] [place] [address] [address] [place] [address] 07/28/2024 Flavia Gomez [facility] [address] [place] [address] 08/21/2024 Sina Segura Assessments Encounter Date Diagnosis (ICD Code) Assessment [...] 07/06/2024 Mild aortic stenosis (ICD-10 - I35.0) 10/26/2023 Chronic venous insufficiency (ICD-10 - I87.2) Stable appearing today but continues with lymphedema symptoms, continue pump at home and outpatient therapy as needed 07/06/2024 HLD (hyperlipidemia) (ICD-10 - E78.5) 02/17/2024 Obesity, morbid (more than 100 lbs over ideal weight or BMI > 40) (ICD-10 - E66.01) complicates all aspects of care but insurance does not cover GLP1I for weight loss in this case...no h/o CAD or CVA. 10/26/2023 Lymphedema (ICD-10 - I89.0) 07/06/2024 HTN [...] update echo which was last done 2019 07/06/2024 Infection and inflammatory reaction due to other [...] Name Order Date N-CBC 03/15/2006 X-Lipid Profile 03/15/2006 X-Lipid Profile 05/23/2007 Ultrasound : Kidneys, Bilateral 04/04/19 13 Urinalysis 08/14/2014 N-TSH (Thyroid Stimulating Hormone) 04/30 N-CMP 05/23/2007 N-CMP 03/15/2006 Physical Therapy 05/23/2007 Physical Therapy 05/28/2006 Physical Therapy 02/14/2018 Physical Therapy 01/28/2022 EKG 08/08/2018 Occupational Therapy : Eval & Treatment 02/14/2018 H-CBC with AUTO DIFF 07/17/2013 H-CBC with AUTO DIFF 06/07/2014 H-IRON & TIBC 11/16/2013 H-VITAMIN B12 11/16/2013 H-FOLATE, SERUM 11/16/2013 H-FERRITIN 11/16/2013 H-PT/INR 10/05/2016 H-CMP 09/09/2015 H-CMP 06/07/2014 H-BUN 07/05/2017 H-CREATININE SERUM 07/05/2017 H-LIPID PANEL 01/10/2008 H-LIPID PANEL 07/17/2013 H-LIPID PANEL 06/07/2014 H-LIPID PANEL 09/09/2015 H-TSH 06/07/2014 H-TSH 09/09/2015 H-TSH 07/17/2013 H-VIT D, 25-HYDROXY 07/17/2013 H-VIT [...] Order Date H-CMP 11/10/2010 H-LIPID PANEL 11/10/2010 Next Appt Details Provider Name:Flavia Mcfarland Elaine ce, 08/31/2024 11:30:00 AM, [address], [address], [place], [address], Insurance Providers Payer Name Payer Address Payer Phone Subscriber Number Group Number Insured Name Patient Relationship to Insured Coverage Start Date Coverage End Date [employer] [address] [address] [place] [address] [id number] Sy Barlow Self - patient is the insured Medical (General) History Medical History History ICD Code allergies osteoarthritis, followed by Arthritis Lety nts[facility] hypercholestrolemia sleep apnea on CPAP hypertension asthma Hypothyroidism Esophageal reflux 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
--- OUTSIDE RECORDS SUMMARY | 2024-08-30 07:32 | XMS_ITS | Encounter Summary ---
Author Organization [employer] ([place], [place], [place], [place]) Address [address] [place] [address] Care Team Providers Care Toll Mechanic Name Role Phone Unavailable Primary Care Provider Unavailabl e Encounter Details Date Type Department Care Team (Late st Contact Info) Description 07/16/2019 Transcribed Document [facility] [place] [facility] [place] [address] ProviderMariela MD [address] [place] [address] Social History Tobacco Use Types Packs/Day Years [...]
--- OUTSIDE RECORDS SUMMARY | 2024-08-30 07:32 | XMS_ITS | Encounter Summary ---
Author Organization [employer] ([place], [place], [place], [place]) Address [address] [place] [address] Care Team Providers Care Job Checker Name Role Phone Unavailable Primary Care Provider Unavailabl e Encounter Details Date Type Department Care Team (Late st Contact Info) Description 07/16/2019 Transcribed Document [facility] [place] [facility] [place] [address] ProviderMariela MD [address] [place] [address] Social History Tobacco Use Types Packs/Day [...] Conversion Note - Mariela ProviderMD - 07/16/2019 9:00 AM CDT Pain [...] form. Electronically signed by Maureen Cornejo Conversion Certified Hearing Instrument Dispenser Cerner at 06/16/2022 8:30 PM CDT documented in this encounter Plan of Treatment Not on file documented as of this encounter Visit Diagnoses Not on filedocumented in this encounter
--- OUTSIDE RECORDS SUMMARY | 2024-08-30 07:32 | XMS_ITS | Encounter Summary ---
Author Organization [employer] ([place], [place], [place], [place]) Address [address] [place] [address] Care Team Providers Care Compress Engineer Name Role Phone Unavailable Primary Care Provider Unavailabl e Encounter Details Date Type Department Care Team (Late st Contact Info) Description 07/14/2019 Transcribed Document [facility] [place] [facility] [place] [address] ProviderMariela MD [address] [place] [address] Social History Tobacco Use Types Packs/Day Years [...] They are trying to send me to [facility] on Wednesday will follow Notification : RN(Marisela)/PTx CORI NELSON PT - 07/14/2019 14:47 EDT Electronically signed by Chantal [facility] Conversion Cytology Technologist Cerner at 06/16/2022 8:28 PM CDT documented in this encounter Plan of Treatment Not on file documented as of this encounter Visit Diagnoses Not on filedocumented in this encounter
--- OUTSIDE RECORDS SUMMARY | 2024-08-30 07:32 | XMS_ITS | Encounter Summary ---
Author Organization [employer] ([place], [place], [place], [place]) Address [address] [place] [address] Care Team Providers Care Conference Concierge Name Role Phone Unavailable Primary Care Provider Unavailabl e Encounter Details Date Type Department Care Team (Late st Contact Info) Description 07/17/2019 Transcribed Document [facility] [address] [place] [address] Shawanda Barahona MD [address] [id number] Social History Tobacco Use Types Packs/Day Years [...] L 3.1 (JULY 06) Micro: [facility]: 06/15 [facility] Blood cultures positive for group B [...] LFT's, fungal superinfection etc to go to [place] wednesday if orthopedics agrees d/w case management rn documented in this encounter Plan of Treatment Not on file documented as of this encounter Visit Diagnoses Not on filedocumented in this encounter
--- OUTSIDE RECORDS SUMMARY | 2024-08-30 07:32 | XMS_ITS | Encounter Summary ---
Author Organization [employer] ([place], [place], [place], [place]) Address [address] [place] [address] Care Team Providers Care Chairman Name Role Phone Unavailable Primary Care Provider Unavailabl e Encounter Details Date Type Department Care Team (Late st Contact Info) Description 08/21/2020 Transcribed Document [facility] [place] [facility] [place] [address] ProviderMariela MD [facility] [place] [address] Social History Tobacco Use Types [...] Conversion Note - Historical ProviderMD - 08/21/2020 1:41 PM CDT Treatment Intervention, [...] Sling under pt RN/PCT Informed Comment : EDDIE little'ed to see Treatment End Time : 08/23/2020 [...] MANUEL ODELL YA - 08/23/2020 14:15 EDT Ecological Modeler Goals, OT Other LTG Grid Goal #1 [...] goal warrented due to restrictings, pre-morbid limitations FETLON RUSH OTR/L - 08/23/2020 14:15 EDT FELTON [...] Mgmt Ea 15 Min : 2 FELTON RUSH OTR/Bartolo - 08/23/2020 14:15 EDT Electronically signed by Chantal [facility] Conversion Quilter Fixer Cerner at 06/21/2022 2:02 PM CDT documented in this encounter Plan of Treatment Not on file documented as of this encounter Visit Diagnoses Not on filedocumented in this encounter
--- OUTSIDE RECORDS SUMMARY | 2024-08-30 07:32 | XMS_ITS | Encounter Summary ---
Author Organization [employer] ([place], [place], [place], [place]) Address [address] [place] [address] Care Team Providers Care Rehabilitation Physician Name Role Phone Unavailable Primary Care Provider Unavailabl e Encounter Details Date Type Department Care Team (Late st Contact Info) Description 08/21/2020 Transcribed Document [facility] [facility] [place] [address] ProviderMariela MD [facility] [place] [address] Social History Tobacco Use Types [...] Conversion Note - Mariela ProviderMD - 08/21/2020 2:05 PM CDT On Going Discharge Planning Entered On: 08/21/2020 14:06 EDT Performed On: 08/21/2020 14:05 EDT by ADALBERTO BEE, EDDIE Care Management Progress Note Discharge Arrangements : Patient Post-Acute Information Patient Name: SOFIA GILL Gender: Female : 44 Age: 80 Years [place] Referral(s): Service: Organization: Business Address: Phone Number: [facility] [address], [address] Discharge Options Discussed with Patient : Discharge transportation, DME, emt intermediate rehabilitation Barriers to Discharge Identified : Clinical Condition of Patient Barriers to Discharge Unresolved : Clinical Condition of Patient Designation of Choice Signed : No Patient Offered Choice/Affiliations Explained : Yes List/Info Provided Pt/Fam/Support Person : Durable medical equipment, senior living facilities Were Referrals Sent to Post Acute [...] wants to go to Rehab and choose [facility] or [facility]. Referral faxed via [employer] and brooke notified. Patient going home on [...]
--- OUTSIDE RECORDS SUMMARY | 2024-08-30 07:32 | XMS_ITS | Encounter Summary ---
Author Organization [employer] ([place], [place], [place], [place]) Address [address] [place] [address] Care Team Providers Care Director Geophysical Laboratory Name Role Phone Unavailable Primary Care Provider Unavailabl e Encounter Details Date Type Department Care Team (Late st Contact Info) Description 10/26/2020 Transcribed Document [facility] [place] [facility] [address] ProviderMariela MD [address] [place] [address] Social History Tobacco Use Types [...] Cerner Conversion Note - Mariela ProviderMD - 10/26/2020 1:54 PM CDT [place] [phone] SOFIA GILL :1940 Visit Time:10/26/2020 Your Visit Summary Your [...] follow up appointment Follow-up as instructed Where: [address] [place], [place] [id number]- [facility] (1) Follow Up with Follow up with primary care provider When Within 2 to 3 days Comments Call for follow up appointment. Please follow-up with your primary care provider in 2 to 3 days. Return to ED if you experience new or worsening symptoms. If you do not have a primary care provider the patient resource appointment scheduler can assist you with establishing care and scheduling follow-up. The Patient Resource Windows Desktop Support can be contacted at . Allergies Mobic [...] range between ( 1.0 and 7.0 ) Vermilion #: 1.11 K/uL -- Normal range between ( 0.24 and 0.82 ) Eos #: 1.06 K/uL -- Normal range between ( 0.04 and 0.54 ) Vermilion %: 8.8 % -- Normal range between [...] provider. Document Revised: 02/24/2017 Document Reviewed: 02/01/2017 [employer] Patient Education ?? [address] [employer]. Emergency Awareness and Preventative Care STROKE is [...] Assistance with quitting is available by contacting 2-832-KEDX-NOW. This is a free resource providing counseling, [...] emergency, radiology, or pathology physicians. Patient Name:SOFIA GILL I have received this information and was given the opportunity to ask questions. Patient/Journeyman Operator Assistant Name: Patient/Journeyman Operator Assistant Signature: Relationship to Patient: Clinician/Hospital Journeyman Operator Assistant Signature: Please Provide a Telephone Number Where You Can Be Reached: Is it Permissible To Leave a Message? Date: Electronically signed by Chantal, [facility] Conversion Anthony Copeland at 06/16/2022 8:30 PM CDT documented in this encounter Plan of Treatment Not on file documented as of this encounter Visit Diagnoses Not on filedocumented in this encounter
--- OUTSIDE RECORDS SUMMARY | 2024-08-30 07:32 | XMS_ITS | Encounter Summary ---
Author Organization [employer] ([place], [place], [place], [place]) Address [address] [place] [address] Care Team Providers Care Nnp Name Role Phone Unavailable Primary Care Provider Unavailabl e Encounter Details Date Type Department Care Team (Late st Contact Info) Description 08/21/2020 Transcribed Document [facility] [place] [address] [place] [address] ProviderMariela MD [address] [place] [address] Social History Tobacco Use Types [...]
--- OUTSIDE RECORDS SUMMARY | 2024-08-30 07:32 | XMS_ITS | Encounter Summary ---
Author Organization [employer] ([place], [place], [place], [place]) Address [address] [place] [address] Care Team Providers Care Floor Framer Name Role Phone Unavailable Primary Care Provider Unavailabl e Encounter Details Date Type Department Care Team (Late st Contact Info) Description 08/28/2020 Transcribed Document [facility] [place] Family Medicine [address] [place] [address] ProviderMariela MD [address] [place] [address] Social History Tobacco Use Types [...] Jessica Ovalle Lpn - 08/28/2020 5:07 EDT documented in this encounter Plan of Treatment Not on file documented as of this encounter Visit Diagnoses Not on filedocumented in this encounter
--- OUTSIDE RECORDS SUMMARY | 2024-08-30 07:32 | XMS_ITS | Encounter Summary ---
Author Organization [employer] ([place], [place], [place], [place]) Address [address] [place] [address] Care Team Providers Care Ruby Rails Developer Name Role Phone Unavailable Primary Care Provider Unavailabl e Encounter Details Date Type Department Care Team (Late st Contact Info) Description 08/27/2020 Transcribed Document [facility] [place] Family Medicine [facility] [place] [address] ProviderMariela MD [facility] [place] [address] Social History Tobacco Use Types [...] Historical ProviderMD - 08/27/2020 2:00 AM CDT Body Finisher Details Entered On: 08/27/2020 6:49 EDT Performed [...]
--- OUTSIDE RECORDS SUMMARY | 2024-08-30 07:32 | XMS_ITS | Encounter Summary ---
Author Organization [employer] ([place], [place], [place], [place]) Address [address] [place] [address] Care Team Providers Care Mine Car Dispatcher Name Role Phone Unavailable Primary Care Provider Unavailabl e Encounter Details Date Type Department Care Team (Late st Contact Info) Description 07/15/2019 Transcribed Document [facility] [place] [facility] [place] [address] ProviderMariela MD [address] [place] [address] Social History Tobacco Use Types Packs/Day Years [...] Historical ProviderMD - 07/15/2019 2:00 AM CDT Outbound Sales Specialist Details Entered On: 07/15/2019 2:33 EDT Performed [...] Georgina Olivo RN - 07/15/2019 2:33 EDT Electronically signed by Chantal [facility] Conversion Marklogic Developer Cerner at 06/16/2022 8:26 PM CDT documented in this encounter Plan of Treatment Not on file documented as of this encounter Visit Diagnoses Not on filedocumented in this encounter
--- OUTSIDE RECORDS SUMMARY | 2024-08-30 07:32 | XMS_ITS | Encounter Summary ---
Author Organization [employer] ([place], [place], [place], [place]) Address [address] [place] [address] Care Team Providers Care Dietitian Teaching Name Role Phone Unavailable Primary Care Provider Unavailabl e Encounter Details Date Type Department Care Team (Late st Contact Info) Description 10/26/2020 Transcribed Document [facility] [place] Family Medicine [facility] [place] [address] ProviderMariela MD [address] [place] [address] Social History Tobacco Use Types Packs/Day [...] Conversion Note - Mariela ProviderMD - 10/26/2020 2:38 AM CDT Pain [...]
--- OUTSIDE RECORDS SUMMARY | 2024-08-30 07:32 | XMS_ITS | Encounter Summary ---
Author Organization [employer] ([place], [place], [place], [place]) Address [address] [place] [address] Care Team Providers Care Medical Language Specialist Name Role Phone Unavailable Primary Care Provider Unavailabl e Encounter Details Date Type Department Care Team (Late st Contact Info) Description 10/26/2020 Transcribed Document [facility] [place] [facility] [place] [address] ProviderMariela MD [address] [place] [address] Social History Tobacco Use Types [...] Conversion Note - Mariela ProviderMD - 10/26/2020 1:52 PM CDT [place] [id number] SOFIA GILL :1940 Visit Time:10/26/2020 Your Visit [...] follow up appointment Follow-up as instructed Where: [address] [place], [place] [id number]- [facility] (1) Follow Up with Follow up with primary care provider When Within 2 to 3 days Comments Call for follow up appointment. Please follow-up with your primary care provider in 2 to 3 days. Return to ED if you experience new or worsening symptoms. If you do not have a primary care provider the patient resource strap machine operator automatic can assist you with establishing care and scheduling follow-up. The Patient Resource Medical Administrative can be contacted at . Allergies Mobic [...] range between ( 1.0 and 7.0 ) [place] #: 1.11 K/uL -- Normal range between ( 0.24 and 0.82 ) Eos #: 1.06 K/uL -- Normal range between ( 0.04 and 0.54 ) [place] %: 8.8 % -- Normal range between [...] provider. Document Revised: 02/24/2017 Document Reviewed: 02/01/2017 [place] Patient Education ?? 2020 [place]. Emergency Awareness and Preventative Care STROKE is [...] Assistance with quitting is available by contacting 0-605-FAVY-NOW. This is a free resource providing counseling, [...] was given the opportunity to ask questions. Patient/Automotive Tire Tester Name: Patient/Automotive Tire Tester Signature: Relationship to Patient: Clinician/Hospital Automotive Tire Tester Signature: Please Provide a Telephone Number Where You Can Be Reached: Is it Permissible To Leave a Message? Date: documented in this encounter Plan of Treatment Not on file documented as of this encounter Visit Diagnoses Not on filedocumented in this encounter
--- OUTSIDE RECORDS SUMMARY | 2024-08-30 07:32 | XMS_ITS | Encounter Summary ---
Author Organization [employer] ([place], [place], [place], [place]) Address [address] [place] [address] Care Team Providers Care Cam Maker Name Role Phone Unavailable Primary Care Provider Unavailabl e Encounter Details Date Type Department Care Team (Late st Contact Info) Description 07/17/2019 Transcribed Document [facility] [place] [facility] [place] [address] ProviderMariela MD [address] [place] [address] Social History Tobacco Use Types [...] Conversion Note - Mariela ProviderMD - 07/17/2019 11:29 AM CDT Care [...] with Dr. Stock for 07/25/2019 @ [address] [facility] will call Lexy to facilitate this visit. Care Management Note Report : СВЕТЛАНА WANG - 07/17/19 10:32:31 07/17/2019 faxed clinical review the [facility] at [phone] to request approval for extended ltac services. Auth#[id number], awaiting approval. CM/Discharge plan attached to review. СВЕТЛАНА WANG - 07/17/19 09:06:05 07/17/[address] Jaffe's progress note, yahaira may be removed if okay with Dr. Saenz's office. Per our WOCN, Dr. Saenz's office said they need to see her before they make that decision. Appt scheduled for tomorrow, 07/18/2019 @ 1415; [facility] round-trip transport scheduled for 1315 pick-up ([id number]). Spoke with Lexy Valdez, they have not yet began the patient's insurance preauth, they will today, and be ready to admit on Wednesday. Dr. Jaffe notified and in agreement. [facility] transport rescheduled for discharge 07/19/2019 @ 1400 ([id number]). YOANNA ARAUJO RN - 07/14/19 15:41:31 Yoanna Araujo 07/13/2019 1500 - patient has accepted bed offer at [facility], she will be transported on WednesdayJuly 16 at 2pm by [facility] Confirmation # [id number]. She declined the bed [facility] at [facility] Dr. Jaffe notified of discharge plan. YOANNA ARAUJO, EDDIE - 07/13/19 14:37:44 Yoanna Araujo 07/13/2019 1400 received call from Ratna with [facility] offering patient a bed, Received call from Isabelle with [facility] she is looking at patient and needed a current height and weight. Still waiting to see if any other bed offers come through. I also sent referral to [facility]. YOANNA ARAUJO, EDDIE - 07/13/19 11:04:03 Yoanna Araujo 07/13/2019 1100 faxed out referral for placement for patient to [facility] nursing and rehab, [facility], [facility] and [facility]. Awaiting call backs. СВЕТЛАНА WANG - 07/12/19 12:19:17 07/12/2019 Fax received from [facility] with approval for LTAC services with a request for updated discharge plans and clinical info to support needs if not discharged. Auth#[id number]. Clinical review or discharge summary to be faxed by 07/17/2019. YOANNA ARAUJO RN - 07/12/19 08:39:48 Yoanna Araujo 07/12/2019 0830 - faxed clinical review the [facility] at [phone] to request approval for extended ltac services. Auth#[id number], awaiting approval. YOANNA ARAUJO RN - 06/29/19 [...] health and she has been to the [facility] and [facility] in the past. She has the following equipment at home: wheel chair, walker, cane and shower chair. Her discharge plan is to go to rehab prior to returning home. PCP: Flavia MARQUEZ [address] [place] [address] Paint Mixer Machine: Dr. Shemar Barger [address] [place] [address] [address] Clemente Del Rio MD - Rheumatology - [address] [place], [place] [id number] Preferences: Home Health: [facility]: no preferences DME: [facility] - [address] [facility] [address] [id number] Retirement: [facility] facility: no preferences Will continue to monitor patient for anticipated discharge needs YOANNA ARAUJO RN - 06/29/19 08:30:20 Yoanna Araujo 06/29/2019 0830 received fax from [employer] [facility] with approval for extended ltac coverage with next clinical review due on 07/12/2019. Auth#[id number]. Will continue to follow for anticipated discharge needs. YOANNA ARAUJO RN - 06/28/19 08:35:06 Yoanna Araujo 06/28/2019 0830 Faxed clinical review to [facility] at to request approval for extended Ltac services. Auth#[id number]. Pending Approval. Documentation Status Complete : Yes СВЕТЛАНА WANG - 07/17/2019 11:29 EDT documented in this encounter Plan of Treatment Not on file documented as of this encounter Visit Diagnoses Not on filedocumented in this encounter
--- OUTSIDE RECORDS SUMMARY | 2024-08-30 07:32 | XMS_ITS | Encounter Summary ---
Author Organization [employer] ([place], [place], [place], [place]) Address [address] [place] [address] Care Team Providers Care Director Of Financial Reporting Name Role Phone Unavailable Primary Care Provider Unavailabl e Encounter Details Date Type Department Care Team (Late st Contact Info) Description 10/26/2020 Transcribed Document [facility] [place] [address] ProviderMariela [place] [address] Social History Tobacco Use Types [...] On: 10/26/2020 2:30 EDT by Peggy Rayo PAINT STRIPING MACHINE OPERATOR Quick Look Assessment Level of Consciousness : Alert, Awake Affect/Behavior : Appropriate, Calm, Cooperative Orientation : Oriented x 4 Skin Temperature : Warm Skin Description : Normal for ethnicity Peggy Rayo RN - 10/26/2020 3:19 EDT ED General-Functional Assess Information Obtained From : Patient Communication Barrier : None Primary Language : Maltese Any Spiritual/Cultural Needs or Requests : No [...] 10/26/2020 02:36:19 EDT by Peggy Rayo, RN) Respiratory Respiratory Assessment WDL : WDL [...]
--- OUTSIDE RECORDS SUMMARY | 2024-08-30 07:32 | XMS_ITS | Encounter Summary ---
Author Organization [employer] ([place], [place], [place], [place]) Address [address] [place] [address] Care Team Providers Care Recruitment Officer Name Role Phone Unavailable Primary Care Provider Unavailabl e Encounter Details Date Type Department Care Team (Late st Contact Info) Description 08/21/2020 Transcribed Document [facility] [place] Medicine [facility] [place] [address] ProviderMariela MD [address] [place] [address] Social History Tobacco Use Types [...] Historical ProviderMD - 08/21/2020 2:00 AM CDT Data Software Engineer Details Entered On: 08/21/2020 4:12 EDT Performed [...] - 08/21/2020 4:12 EDT Electronically signed by Chantal [facility] Conversion Lead Ingot Molder Cerner at 06/16/2022 8:17 PM CDT documented in this encounter Plan of Treatment Not on file documented as of this encounter Visit Diagnoses Not on filedocumented in this encounter
--- OUTSIDE RECORDS SUMMARY | 2024-08-30 07:32 | XMS_ITS | Encounter Summary ---
Author Organization [employer] ([place], [place], [place], [place]) Address [address] [place] [address] Care Team Providers Care Go Go Dancer Name Role Phone Unavailable Primary Care Provider Unavailabl e Encounter Details Date Type Department Care Team (Late st Contact Info) Description 08/21/2020 Transcribed Document [facility] [place] Family Medicine [facility] [address] ProviderMariela MD [address] [place] [address] Social History Tobacco Use Types [...] Conversion Note - Mariela ProviderMD - 08/21/2020 4:00 PM CDT Pain Assessment Entered On: 08/21/2020 18:06 EDT Performed On: 08/21/2020 17:37 EDT by Jane Bose RN Intervention Information: traMADol Performed by Jane Bsoe RN on 08/21/2020 16:37:00 EDT traMADol,50mg Oral [...]
--- OUTSIDE RECORDS SUMMARY | 2024-08-30 07:32 | XMS_ITS | Encounter Summary ---
Author Organization [employer] ([place], [place], [place], [place]) Address [address] [place] [address] Care Team Providers Care Ware Server Name Role Phone Unavailable Primary Care Provider Unavailabl e Encounter Details Date Type Department Care Team (Late st Contact Info) Description 08/21/2020 Transcribed Document [facility] [place] [facility] [place] [address] ProviderMariela MD [address] [place] [address] Social History Tobacco Use Types [...] Conversion Note - Mariela ProviderMD - 08/21/2020 10:00 AM CDT Pain [...]
--- OUTSIDE RECORDS SUMMARY | 2024-08-30 07:32 | XMS_ITS | Encounter Summary ---
Author Organization [employer] ([place], [place], [place], [place]) Address [address] [place] [address] Care Team Providers Care Power Chisel Operator Name Role Phone Unavailable Primary Care Provider Unavailabl e Encounter Details Date Type Department Care Team (Late st Contact Info) Description 08/21/2020 Transcribed Document [facility] [place] Family Medicine [facility] [place] [address] ProviderMariela MD [address] [place] [address] Social History Tobacco Use [...] Conversion Note - Mariela ProviderMD - 08/21/2020 5:00 AM CDT Pain [...]
--- OUTSIDE RECORDS SUMMARY | 2024-08-30 07:32 | XMS_ITS | Encounter Summary ---
Author Organization [employer] ([place], [place], [place], [place]) Address [address] [place] [address] Care Team Providers Care Concrete Carpenter Name Role Phone Unavailable Primary Care Provider Unavailabl e Encounter Details Date Type Department Care Team (Late st Contact Info) Description 10/26/2020 Transcribed Document [facility] [place] Family Medicine [facility] [place] [address] ProviderMariela MD [address] [place] [address] Social History Tobacco Use Types Packs/Day [...] Conversion Note - Mariela Gates MD - 10/26/2020 1:45 AM CDT Patient: SOFIA GILL Age: 80 years Sex: Female : 1940 Associated Diagnoses: Healed wound Author: MAN HACKETT MD Basic Information Time seen: Date & time 10/26/2020 01:45:00, Voice recognition / manager quality technology used for some documentation in this [...] EDT Height Source Stated Height Entry Format [place] Height/Length, CHINESE (ft) 5 ft Height/Length CHINESE 0 Inch CLINICALHEIGHT 152.4 cm [place] Body Weight 49.16 kg Weight Source, ED Critical estimated dosing weight Weight Entry Format [place] Weight Macedonian lb 200 lb CLINICALWEIGHT 90.91 kg Body [...] Triage: ED C-SSRS: ED Clinical Reconciliation: ED film editor supervisor: ESR Sedimentation Rate Auto: Immobilizer Brace Splint [...] % 24.6 % Lymph # 3.10 K/uL [place] % 8.8 % [place] # 1.11 K/uL [place] Eos % 8.4 [...] care transitioned to: Time: 10/26/2020 08:30:00, CARLY OJN MD-EMR. Counseled: Patient, Regarding diagnosis, Regarding diagnostic results, Regarding treatment plan. Electronically signed by Maureen Cornejo Conversion Sales Service Professional [employer] at 06/16/2022 8:14 PM CDT documented in this encounter Plan of Treatment Not on file documented as of this encounter Visit Diagnoses Not on filedocumented in this encounter
--- OUTSIDE RECORDS SUMMARY | 2024-08-30 07:32 | XMS_ITS | Encounter Summary ---
Author Organization [employer] ([place], [place], [place], [place]) Address [address] [place] [address] Care Team Providers Care Learning Center Coordinator Name Role Phone Unavailable Primary Care Provider Unavailabl e Encounter Details Date Type Department Care Team (Late st Contact Info) Description 07/15/2019 Transcribed Document [facility] [place] Family Medicine [address] [place] [address] ProviderMariela MD [address] [place], [place] [id number] Social History Tobacco Use Types Packs/Day Years [...] All Active Orders Reviewed : Yes Marisela Rangel RN - 07/15/2019 16:33 EDT documented in this encounter Plan of Treatment Not on file documented as of this encounter Visit Diagnoses Not on filedocumented in this encounter
--- OUTSIDE RECORDS SUMMARY | 2024-08-30 07:32 | XMS_ITS | Encounter Summary ---
Author Organization [employer] ([place], [place], [place], [place]) Address [address] [place] [address] Care Team Providers Care Music Mixer Name Role Phone Unavailable Primary Care Provider Unavailabl e Encounter Details Date Type Department Care Team (Late st Contact Info) Description 07/17/2019 Transcribed Document [facility] [place] [facility] [place] [address] ProviderMariela MD [address] [place] [address] Social History Tobacco Use Types [...] Conversion Note - Mariela ProviderMD - 07/17/2019 9:01 AM CDT Care [...] Appt scheduled for tomorrow, 07/18/2019 @ 1415; [employer] round-trip transport scheduled for 1315 pick-up ([id number]). Spoke with Lexy Valdez, they have not yet began the patient's insurance preauth, they will today, and be ready to admit on Wednesday. Dr. Jaffe notified and in agreement. [facility] transport rescheduled for discharge 07/19/2019 @ 1400 ([id number]). Care Management Note Report : YOANNA ARAUJO RN - 07/14/19 15:41:31 Yoanna Araujo 07/13/2019 1500 - patient has accepted bed offer at [facility], she will be transported on WednesdayJuly 16 at 2pm by [facility] Confirmation # [id number]. She declined the bed offer at [facility]. Dr. Jaffe notified of discharge plan. YOANNA ARAUJO RN - 07/13/19 14:37:44 Yoanna Araujo 07/13/2019 1400 received call from Ratna with [facility] offering patient a bed, Received call from Isabelle with [facility] she is looking at patient and needed a current height and weight. Still waiting to see if any other bed offers come through. I also sent referral to [facility]. YOANNA ARAUJO RN - 07/13/19 11:04:03 Yoanna Araujo 07/13/2019 1100 faxed out referral for placement for patient to [facility] nursing and rehab, [facility] facilities and [facility]. Awaiting call backs. СВЕТЛАНА WANG - 07/12/19 12:19:17 07/12/2019 Fax received from [facility] with approval for LTAC services with a request for updated discharge plans and clinical info to support needs if not discharged. Auth#[id number]. Clinical review or discharge summary to be faxed by 07/17/2019. YOANNA ARAUJO RN - 07/12/19 08:39:48 Yoanna Araujo 07/12/2019 0830 - faxed clinical review the [facility] at [phone] to request approval for extended ltac services. Auth#[id number], awaiting approval. YOANNA ARAUJO RN - 06/29/19 [...] health and she has been to the [facility] and [facility] in the past. She has the following equipment at home: wheel chair, walker, cane and shower chair. Her discharge plan is to go to rehab prior to returning home. PCP: Flavia MARQUEZ [address] [id number] Strip Deburrer: Dr. Shemar Barger [address] [facility] [address] [facility] [id number] Dr. Clemente Del Rio MD - Rheumatology - [address] [place], [place] [id number] Preferences: Home Health: [facility]: no preferences DME: [employer] Home Medical Equipment - [address], [place] [address] Residential: [facility] facility: no preferences Will continue to monitor patient for anticipated discharge needs YOANNA ARAUJO RN - 06/29/19 08:30:20 Yoanna Araujo 06/29/2019 0830 received fax from [facility] with approval for extended ltac coverage with next clinical review due on 07/12/2019. Auth#[id number]. Will continue to follow for anticipated discharge needs. YOANNA ARAUJO RN - 06/28/19 08:35:06 Yoanna Araujo 06/28/2019 0830 Faxed clinical review to [facility] at to request approval for extended Ltac services. Auth#[id number]. Pending Approval. Documentation Status Complete : Yes СВЕТЛАНА WANG - 07/17/2019 9:01 EDT documented in this encounter Plan of Treatment Not on file documented as of this encounter Visit Diagnoses Not on filedocumented in this encounter
--- OUTSIDE RECORDS SUMMARY | 2024-08-30 07:32 | XMS_ITS | Encounter Summary ---
Author Organization [employer] ([place], [place], [place], [place]) Address [address] [place] [address] Care Team Providers Care Mandarin Tutor Name Role Phone Unavailable Primary Care Provider Unavailabl e Encounter Details Date Type Department Care Team (Late st Contact Info) Description 10/26/2020 Transcribed Document [facility] [place] [facility] [place] [address] ProviderMariela MD [address] [place] [address] Social History Tobacco Use Types [...] Conversion Note - Mariela ProviderMD - 10/26/2020 1:53 PM CDT [place] [id number] SOFIA GILL :1940 Visit Time:10/26/2020 Your Visit [...] follow up appointment Follow-up as instructed Where: [address] [place], [place] [id number]- [facility] (1) Follow Up with Follow up with primary care provider When Within 2 to 3 days Comments Call for follow up appointment. Please follow-up with your primary care provider in 2 to 3 days. Return to ED if you experience new or worsening symptoms. If you do not have a primary care provider the patient resource radiology scheduler can assist you with establishing care and scheduling follow-up. The Patient Resource Financial Planning Analyst can be contacted at . Allergies Mobic [...] range between ( 1.0 and 7.0 ) Morovis #: 1.11 K/uL -- Normal range between ( 0.24 and 0.82 ) Eos #: 1.06 K/uL -- Normal range between ( 0.04 and 0.54 ) [place] %: 8.8 % -- Normal range between [...] provider. Document Revised: 02/24/2017 Document Reviewed: 02/01/2017 [employer] Patient Education ?? 2020 Cuil. Emergency Awareness and Preventative Care STROKE is [...] Assistance with quitting is available by contacting 7-266-NCVI-NOW. This is a free resource providing counseling, [...] was given the opportunity to ask questions. Patient/Women'S Activities Adviser Name: Patient/Women'S Activities Adviser Signature: Relationship to Patient: Clinician/Hospital Women'S Activities Adviser Signature: Please Provide a Telephone Number Where You Can Be Reached: Is it Permissible To Leave a Message? Date: Electronically signed by Chantal, [facility] Conversion Anthony Copeland at 06/16/2022 8:14 PM CDT documented in this encounter Plan of Treatment Not on file documented as of this encounter Visit Diagnoses Not on filedocumented in this encounter
--- OUTSIDE RECORDS SUMMARY | 2024-08-30 07:32 | XMS_ITS | Encounter Summary ---
Author Organization [employer] ([place], [place], [place], [place]) Address [address] [place] [address] Care Team Providers Care Forging Press Operator Name Role Phone Unavailable Primary Care Provider Unavailabl e Encounter Details Date Type Department Care Team (Late st Contact Info) Description 07/17/2019 Transcribed Document [facility] [place] [address] [place] [address] ProviderMariela MD [address] [place] [address] Social History Tobacco Use Types Packs/Day Years [...] Assessment Pain Assessment : Follow-up assessment Kena Ling RN - 07/18/2019 2:49 EDT documented in this encounter Plan of Treatment Not on file documented as of this encounter Visit Diagnoses Not on filedocumented in this encounter
--- OUTSIDE RECORDS SUMMARY | 2024-08-30 07:32 | XMS_ITS | Encounter Summary ---
Author Organization [employer] ([place], [place], [place], [place]) Address [address] [place] [address] Care Team Providers Care Vp Data Name Role Phone Unavailable Primary Care Provider Unavailabl e Encounter Details Date Type Department Care Team (Late st Contact Info) Description 08/21/2020 Transcribed Document [facility] [place] [facility] [place] [address] ProviderMariela MD [facility] [place] [address] Social History Tobacco Use Types [...] available prn. Oma Berg RD, LD - 08/21/2020 15:28 EDT Electronically signed by Chantal [facility] Conversion Organ Recovery Coordinator Cerner at 06/16/2022 8:11 PM CDT documented in this encounter Plan of Treatment Not on file documented as of this encounter Visit Diagnoses Not on filedocumented in this encounter
--- OUTSIDE RECORDS SUMMARY | 2024-08-30 07:32 | XMS_ITS | Encounter Summary ---
Author Organization [employer] ([place], [place], [place], [place]) Address [address] [place] [address] Care Team Providers Care Crepe Maker Name Role Phone Unavailable Primary Care Provider Unavailabl e Encounter Details Date Type Department Care Team (Late st Contact Info) Description 08/21/2020 Transcribed Document [facility] [place] Medicine Count includes the [facility] [place] [address] ProviderMariela MD Count includes the [facility] [place] [address] Social History Tobacco Use Types [...] Conversion Note - Historical ProviderMD - 08/21/2020 7:24 AM CDT Evaluation, Physical [...] : Assistive Devices No Devices Recorded CHAITANYA SIMON, PT - 08/21/2020 10:48 EDT General Status [...] EDT Treatment Time : 33 Minute(s) CHAITANYA SIMON, PT - 08/21/2020 10:48 EDT History and [...] permitted right quad activity and uses leg manager division to assist with movement of RLE in [...] fair sitting could not assess standing CHAITANYA SIMON, PT - 08/21/2020 10:48 EDT Neurological/Sensory Overall [...] CHAITANYA SIMON, PT - 08/21/2020 10:48 EDT Assisted Goals Other PT LTG Grid [...] Needs, OT/PT Anticipated Discharge to : Unit, retirement CHAITANYA SIMON, PT - 08/21/2020 10:48 EDT [place] PT Charges PT Ther Activities Ea 15 Min : 2 PT [place] Moderate Complexity : 1 CHAITANYA SIMON, PT - 08/21/2020 10:48 EDT Electronically signed by Chantal [facility] Conversion Distilling Department Supervisor Cerner at 06/16/2022 8:05 PM CDT documented in this encounter Plan of Treatment Not on file documented as of this encounter Visit Diagnoses Not on filedocumented in this encounter
--- OUTSIDE RECORDS SUMMARY | 2024-08-30 07:32 | XMS_ITS | Encounter Summary ---
Author Organization [employer] ([place], [place], [place], [place]) Address [address] [place] [address] Care Team Providers Care Registered Dietetic Technician Name Role Phone Unavailable Primary Care Provider Unavailabl e Encounter Details Date Type Department Care Team (Late st Contact Info) Description 07/17/2019 Transcribed Document [facility] [place] [facility] [place] [address] ProviderMariela MD [address] [place] [phone] Social History Tobacco Use Types Packs/Day Years [...] Conversion Note - Mariela Gates MD - 07/17/2019 10:28 PM CDT Patient: SOFIA GILL Age: 79 [...] 0.9% 100 mL 2 Gram, IV Piggyback, B49STin cyanocobalamin 1,000 mcg tab 5,000 mcg 5 [...] Oral, Q4H fluticasone 0.05% nasal spray 2 [place], Nostrils Both, BID magnesium hydroxide 8% liq [...] % 21.2 % Lymph # 1.73 x10(3)/uL Niagara % 9.7 % HI Niagara # 0.79 K/uL Eos % 5.8 % [...] ulcer prophylaxis .For office visit in AM. Electronically signed by Maureen Cornejo Conversion President [employer] Consult[employer] Cerner at 06/16/2022 8:06 PM CDT documented in this encounter Plan of Treatment Not on file documented as of this encounter Visit Diagnoses Not on filedocumented in this encounter
--- OUTSIDE RECORDS SUMMARY | 2024-08-30 07:32 | XMS_ITS | Encounter Summary ---
Author Organization [employer] ([place], [place], [place], [place]) Address [address] [place] [address] Care Team Providers Care Catering Truck Operator Name Role Phone Unavailable Primary Care Provider Unavailabl e Encounter Details Date Type Department Care Team (Late st Contact Info) Description 08/21/2020 Transcribed Document [facility] [place] [facility] [place] [address] ProviderMariela MD [facility] [place] [address] Social History Tobacco Use Types [...] - 08/21/2020 7:44 AM CDT Patient: SOFIA BARLOW Age: 80 Years Sex: Female : [...] PRN Chloraseptic Menthol 1.4% topical spray, 5 [place], Oral, Q2H, PRN Colace, 100 mg= 1 [...] PRN fluticasone 50 mcg/inh nasal spray, 2 [place], Nostrils Both, BID, PRN furosemide, 40 mg= [...] (High) 08/20/2020 16:17 EDT Auto RBC BF [id number] /uL (High) 08/20/2020 16:17 EDT Neutrophils Body Fluid 62 % (High) 08/20/2020 16:17 EDT Lymphocytes Body Fluid 27 % (Low) 08/20/2020 16:17 EDT Monocytes Body Fluid 9 % 08/20/2020 16:17 EDT Eosinophils Body Fluid 2 % 08/20/2020 16:17 EDT ABO/Rh A POS 08/20/2020 13:06 EDT Antibody Screen (Tube) Negative ABSC 08/20/2020 13:06 EDT Electronically signed by hCantal [facility] Conversion Network Systems Engineer Cerner at 06/16/2022 8:06 PM CDT documented in this encounter Plan of Treatment Not on file documented as of this encounter Visit Diagnoses Not on filedocumented in this encounter
--- OUTSIDE RECORDS SUMMARY | 2024-08-30 07:32 | XMS_ITS | Encounter Summary ---
Author Organization [employer] ([place], [place], [place], [place]) Address [address] [place] [address] Care Team Providers Care Packaging Clerk Name Role Phone Unavailable Primary Care Provider Unavailabl e Encounter Details Date Type Department Care Team (Late st Contact Info) Description 08/21/2020 Transcribed Document [facility] [place] [facility] [address] ProviderMariela MD [address] [place] [address] Social History Tobacco Use Types [...] Conversion Note - Mariela ProviderMD - 08/21/2020 8:36 AM CDT UM Authorization Entered On: 08/21/2020 8:36 EDT Performed On: 08/21/2020 8:36 EDT by KARAN WATSON RN-Utilization Review Primary Insurance Authorization Authorization and Policy Numbers : Insurance 1 Health Plan: [facility] MEDICARE ADVANTAGE Policy Number: [id number] Authorization Number: [id number] Insurance Primary Name : [facility] MEDICARE ADVANTAGE Policy Number: [id number] Authorization Status-Primary : Admit approved Reference Number-Primary : [id number] Authorization Number-Primary : [id number] Number of Days Authorized-Primary : 0 Day(s) Authorized Service Begin Date-Primary : 08/20/2020 EDT Authorized Service End Date-Primary : 08/20/2020 EDT Authorization Comments-Primary : Uploaded cont stay clinicals (08/21/20) to [facility] Medicare via [employer]. Historical Authorization Comments-Primary : Comment 1: Note on [facility] website:Patient was initially scheduled for Right Patellar [...] AQUINO, RN-Utilization Review 08/19/2020 15:20) Comment 2: [facility] Medicare approved per website for 1 day (TIESHA AQUINO, RN-Utilization Review 08/19/2020 15:14) KARAN WATSON RN-Utilization Review - 08/21/2020 8:36 EDT documented in this encounter Plan of Treatment Not on file documented as of this encounter Visit Diagnoses Not on filedocumented in this encounter
--- OUTSIDE RECORDS SUMMARY | 2024-08-30 07:32 | XMS_ITS | Encounter Summary ---
Author Organization [employer] ([place], [place], [place], [place]) Address [address] [place] [address] Care Team Providers Care Mothercraft Nurse Name Role Phone Unavailable Primary Care Provider Unavailabl e Encounter Details Date Type Department Care Team (Late st Contact Info) Description 08/21/2020 Transcribed Document [facility] Family Medicine [facility] [place] [address] ProviderMariela MD [address] [place] [address] Social History Tobacco Use Types [...] Conversion Note - Mariela ProviderMD - 08/21/2020 9:00 PM CDT Pain [...] form. Electronically signed by Chantal, Maureen Conversion Scientific Publications Editor Cerner at 06/16/2022 8:22 PM CDT documented in this encounter Plan of Treatment Not on file documented as of this encounter Visit Diagnoses Not on filedocumented in this encounter
--- OUTSIDE RECORDS SUMMARY | 2024-08-30 07:32 | XMS_ITS | Encounter Summary ---
Author Organization [employer] ([place], [place], [place], [place]) Address [address] [place] [address] Care Team Providers Care Principal Clerk Name Role Phone Unavailable Primary Care Provider Unavailabl e Encounter Details Date Type Department Care Team (Late st Contact Info) Description 10/26/2020 Transcribed Document [facility] [place] [address] [place] [address] ProviderMariela MD [address] [place], [place] [phone] Social History Tobacco Use Types Packs/Day Years [...] : Low risk (0) [place] Interventions : [place] precautions for safety used Peggy Rayo RN - 10/26/2020 3:19 EDT documented in this encounter Plan of Treatment Not on file documented as of this encounter Visit Diagnoses Not on filedocumented in this encounter
--- OUTSIDE RECORDS SUMMARY | 2024-08-30 07:32 | XMS_ITS | Encounter Summary ---
Author Organization [employer] ([place], [place], [place], [place]) Address [address] [place] [address] Care Team Providers Care Out Of School Hours Care Worker Name Role Phone Unavailable Primary Care Provider Unavailabl e Encounter Details Date Type Department Care Team (Late st Contact Info) Description 07/15/2019 Transcribed Document [facility] [place] [facility] [place] [address] ProviderMariela MD [address] [place] [address] Social History Tobacco Use Types Packs/Day [...] Conversion Note - Mariela ProviderMD - 07/15/2019 9:00 AM CDT Pain [...] EDT Pain Scale Intensity : 2 Marisela Ragnel RN - 07/15/2019 10:41 EDT Image 4 - Images currently included in the form version of this document have not been included in the text rendition version of the form. Electronically signed by Maureen Cornejo Conversion Search Marketing Coordinator Cerner at 06/16/2022 8:04 PM CDT documented in this encounter Plan of Treatment Not on file documented as of this encounter Visit Diagnoses Not on filedocumented in this encounter
--- OUTSIDE RECORDS SUMMARY | 2024-08-30 07:32 | XMS_ITS | Encounter Summary ---
Author Organization [employer] ([place], [place], [place], [place]) Address [address] [place] [address] Care Team Providers Care Beet Worker Name Role Phone Unavailable Primary Care Provider Unavailabl e Encounter Details Date Type Department Care Team (Late st Contact Info) Description 07/14/2019 Transcribed Document [facility] Radiology [address] [place] [address] Shawanda Barahona MD [address] [place] [id number] Social History Tobacco Use Types Packs/Day Years [...] Last Charted Minimum Maximum Temp 97.7 (JULY 13 07:00) 97.7 (JULY 13:00) 98.4 (JULY 12:) Mon HR 80 (JULY 13:00) 80 (JULY 13:00) 95 (JULY 12:) Resp Rate 18 (JULY 13:00) 18 (JULY 12:00) 19 (JULY 12:00) SBP 100 (JULY 13:00) 100 (JULY 13:00) 130 (JULY 12:00) DBP L 42 (JULY 13:00) L 42 (JULY 13:00) L 59 (JULY 12 23:00) SpO2 96 (JULY 13:00) 96 (JULY 13:00) 100 (JULY 12:00) Physical Examination: Gen: Alert, [...] (JULY 06) L 2.9 (JULY 05) Micro: [facility]: 06/15 [facility] Blood cultures positive for group [...] effects; diarrhea, elevated LFT's, fungal superinfection etc binder caser needs to explain why patient cannot stay in LTAC longer and help find SNF that taz feels good about going to documented in this encounter Plan of Treatment Not on file documented as of this encounter Visit Diagnoses Not on filedocumented in this encounter
--- OUTSIDE RECORDS SUMMARY | 2024-08-30 07:32 | XMS_ITS | Encounter Summary ---
Author Organization [employer] ([place], [place], [place], [place]) Address [address] [place] [address] Care Team Providers Care Mental Hygienist Name Role Phone Unavailable Primary Care Provider Unavailabl e Encounter Details Date Type Department Care Team (Late st Contact Info) Description 07/15/2019 Transcribed Document [facility] [place] [facility] [place] [address] ProviderMariela MD [address] [place] [phone] Social History Tobacco Use Types Packs/Day Years [...] Conversion Note - Mariela Gates MD - 07/15/2019 8:31 PM CDT Patient: SOFIA GILL Age: 79 [...] 0.9% 100 mL 2 Gram, IV Piggyback, A71FIah cyanocobalamin 1,000 mcg tab 5,000 mcg 5 [...] Oral, Q4H fluticasone 0.05% nasal spray 2 [place], Nostrils Both, BID magnesium hydroxide 8% liq [...]
--- OUTSIDE RECORDS SUMMARY | 2024-08-30 07:32 | XMS_ITS | Encounter Summary ---
Author Organization [employer] ([place], [place], [place], [place]) Address [address] [place] [address] Care Team Providers Care Sports Marketing Internship Name Role Phone Unavailable Primary Care Provider Unavailabl e Encounter Details Date Type Department Care Team (Late st Contact Info) Description 07/16/2019 Transcribed Document [facility] [place] [facility] [place] [address] ProviderMariela MD [address] [place] [address] Social History Tobacco Use Types Packs/Day [...] Conversion Note - Mariela ProviderMD - 07/16/2019 10:27 AM CDT Patient: SOFIA GILL Age: 79 years Sex: Female : 1940 Associated Diagnoses: None Author: Jacek Nunn, Pharmacist-Resident HPI: 06/15 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 [phone] documented in this encounter Plan of Treatment Not on file documented as of this encounter Visit Diagnoses Not on filedocumented in this encounter
--- OUTSIDE RECORDS SUMMARY | 2024-08-30 07:33 | XMS_ITS | Encounter Summary ---
Author Organization [employer] ([place], [place], [place], [place]) Address [address] [place] [address] Care Team Providers Care Head Of Global Strategic Partnerships Name Role Phone Unavailable Primary Care Provider Unavailabl e Encounter Details Date Type Department Care Team (Late st Contact Info) Description 10/26/2020 Transcribed Document [facility] [place] [facility] [place] [address] ProviderMariela MD [address] [place] [address] Social History Tobacco Use Types Packs/Day [...] Conversion Note - Mariela ProviderMD - 10/26/2020 2:06 AM CDT ED [...] : 3 - Urgent Tracking Group : [facility] Peggy Rayo RN - 10/26/2020 2:32 EDT Mode of Arrival : Stretcher Transported to ED by : Ambulance/ALS EMS Service : [facility] [place] To Room Via : Stretcher Accompanied By : nail mill worker ED Vital Signs : Document Height & [...] PNED ; Probability: 0 ; Diagnosis Code: [id number] Lower leg pain-swelling Date: 10/26/2020 ; Diagnosis Type: Reason For Visit ; Confirmation: Confirmed ; Clinical Dx: Lower leg pain-swelling ; Classification: Medical ; Clinical Service: Emergency medicine ; Code: PNED ; Probability: 0 ; Diagnosis Code: [id number] ED Height and Weight Height Source : Stated Height Entry Format : [place]asper Height, Feet : 5 ft(Converted to: 152 cm, 60 Inch) Height, Inches : 0 Inch(Converted to: 0 ft 0 Inch, 0.00 cm) Clinical Height : 152.4 cm Weight Source, ED : Critical estimated dosing weight Weight Entry Format : [place]asper Weight, Pounds : 200 lb Clinical Dosing Weight : 90.91 kg Body Surface Area (BSA) : 1.87 m2 Body Mass Index : 39.1 kg/m2 (HI) Thayer Body Weight (IBW) : 49.16 kg Peggy [...]
--- OUTSIDE RECORDS SUMMARY | 2024-08-30 07:33 | XMS_ITS | Encounter Summary ---
Author Organization [employer] ([place], [place], [place], [place]) Address [address] [place] [address] Care Team Providers Care Courtroom Deputy Name Role Phone Unavailable Primary Care Provider Unavailabl e Encounter Details Date Type Department Care Team (Late st Contact Info) Description 06/24/2019 Transcribed Document [facility] [place] [address] [place] [address] ProviderMariela MD [address] [place], [place] [phone] Social History Tobacco Use Types Packs/Day Years [...]
--- OUTSIDE RECORDS SUMMARY | 2024-08-30 07:33 | XMS_ITS | Encounter Summary ---
Author Organization [employer] ([place], [place], [place], [place]) Address [address] [place] [address] Care Team Providers Care Electrical Apprentice Name Role Phone Unavailable Primary Care Provider Unavailabl e Encounter Details Date Type Department Care Team (Late st Contact Info) Description 08/22/2020 Transcribed Document [facility] [place] [facility] [place] [address] ProviderMariela MD [address] [place] [address] Social History Tobacco Use Types [...] Cerner Conversion Note - Mariela ProviderMD - 08/22/2020 10:00 PM CDT Pain [...]
--- OUTSIDE RECORDS SUMMARY | 2024-08-30 07:33 | XMS_ITS | Encounter Summary ---
Author Organization [employer] ([place], [place], [place], [place]) Address [address] [place] [address] Care Team Providers Care Disability Coordinator Name Role Phone Unavailable Primary Care Provider Unavailabl e Encounter Details Date Type Department Care Team (Late st Contact Info) Description 10/26/2020 Transcribed Document [facility] [place] [facility] [place] [address] ProviderMariela MD [facility] [place] [address] Social History Tobacco Use Types [...] Note - Mariela Gates MD - 10/26/2020 10:25 AM CDT Patient: SOFIA GILL Age: 80 years Sex: Female : 1940 Associated Diagnoses: Cast removal; Healed wound Author: CARLY JON MD-EMR Basic Information Time seen: Date & time 10/26/2020 01:45:00, Voice recognition / cryptologic technician operator/analyst technology used for some documentation in this [...] Source Stated Height Entry Format Ceci Height/Length, SAMI (ft) 5 ft Height/Length SAMI 0 Inch CLINICALHEIGHT 152.4 cm Grady Body Weight 49.16 kg Weight Source, ED Critical estimated dosing weight Weight Entry Format Harper Weight [place]er lb 200 lb CLINICALWEIGHT 90.91 kg Body [...] call, recommends Dr. Butts is on-call for [facility]. Discussed case he recommends knee [...] a primary care provider the patient resource machinist/machine builder can assist you with establishing care and scheduling follow-up. The Patient Resource Fast Brim Pouncer can be contacted at .; ; NIMO [...]
--- OUTSIDE RECORDS SUMMARY | 2024-08-30 07:33 | XMS_ITS | Encounter Summary ---
Author Organization [employer] ([place], [place], [place], [place]) Address [address] [place] [address] Care Team Providers Care Hospice Chaplain Name Role Phone Unavailable Primary Care Provider Unavailabl e Encounter Details Date Type Department Care Team (Late st Contact Info) Description 06/22/2019 Transcribed Document [facility] [place] [facility] [place] [address] ProviderMariela MD [address] [place] [phone] Social History Tobacco Use Types Packs/Day Years [...]
--- OUTSIDE RECORDS SUMMARY | 2024-08-30 07:33 | XMS_ITS | Encounter Summary ---
Author Organization [employer] ([place], [place], [place], [place]) Address [address] [place] [address] Care Team Providers Care Inspector Handbag Frames Name Role Phone Unavailable Primary Care Provider Unavailabl e Encounter Details Date Type Department Care Team (Late st Contact Info) Description 08/23/2020 Transcribed Document [facility] [place] Family Medicine [address] [place] [address] ProviderMariela MD [address] [place], [place] [phone] Social History Tobacco Use Types Packs/Day Years [...]
--- OUTSIDE RECORDS SUMMARY | 2024-08-30 07:33 | XMS_ITS | Encounter Summary ---
Author Organization [employer] ([place], [place], [place], [place]) Address [address] [place] [address] Care Team Providers Care Coal Trimmer Machine Operator Name Role Phone Unavailable Primary Care Provider Unavailabl e Encounter Details Date Type Department Care Team (Late st Contact Info) Description 07/19/2019 Transcribed Document [facility] [place] [facility] [place] [address] ProviderMariela MD [address] [place] [address] Social History Tobacco Use Types Packs/Day [...] HOWIE WETZEL PTA - 07/19/2019 12:34 EDT Residential Goals Mobility/Bed Mobility LTG PT Grid Goal [...] WETZEL PTA - 07/19/2019 12:34 EDT HOWIE WETZEL, IT NETWORK ENGINEER - 07/19/2019 12:34 EDT Electronically signed by [facility], [facility] Conversion Machine Stamper Cerner at 06/16/2022 8:20 PM CDT documented in this encounter Plan of Treatment Not on file documented as of this encounter Visit Diagnoses Not on filedocumented in this encounter
--- OUTSIDE RECORDS SUMMARY | 2024-08-30 07:33 | XMS_ITS | Encounter Summary ---
Author Organization [employer] ([place], [place], [place], [place]) Address [address] [place] [address] Care Team Providers Care Mathematics Professor Name Role Phone Unavailable Primary Care Provider Unavailabl e Encounter Details Date Type Department Care Team (Late st Contact Info) Description 07/09/2019 Transcribed Document [facility] [facility] [place] [address] ProviderMariela MD [address] [place], [place] [id number] Social History Tobacco Use Types Packs/Day Years [...] Historical ProviderMD - 07/09/2019 2:00 AM CDT Merchandising Consultant Details Entered On: 07/09/2019 6:14 EDT Performed [...] GREGOR WOODS RN - 07/09/2019 6:14 EDT Electronically signed by Chantal [facility] Conversion Management Development Specialist Cerner at 06/16/2022 8:06 PM CDT documented in this encounter Plan of Treatment Not on file documented as of this encounter Visit Diagnoses Not on filedocumented in this encounter
--- OUTSIDE RECORDS SUMMARY | 2024-08-30 07:33 | XMS_ITS | Encounter Summary ---
Author Organization [employer] ([place], [place], [place], [place]) Address [address] [place] [address] Care Team Providers Care Animal Warden Name Role Phone Unavailable Primary Care Provider Unavailabl e Encounter Details Date Type Department Care Team (Late st Contact Info) Description 06/25/2019 Transcribed Document [facility] [place] [facility] [place] [address] ProviderMariela MD [address] [place] [address] Social History Tobacco Use Types Packs/Day [...] 0.9% 50 mL 2 Gram, IV Piggyback, [id number] cyanocobalamin 1,000 mcg tab 5,000 mcg 5 [...] At Bedtime fluticasone 0.05% nasal spray 2 [place], Nostrils Both, BID LORazepam 2 mg/mL inj [...] Topical, Q1H phenol 1.4% throat spray 1 [place], Oral, Q2H potassium chloride 10 mEq 100 [...] 1-Time, Stop: 06/26/19 4:00:00 EDT, Lab Collect. documented in this encounter Plan of Treatment Not on file documented as of this encounter Visit Diagnoses Not on filedocumented in this encounter
--- OUTSIDE RECORDS SUMMARY | 2024-08-30 07:33 | XMS_ITS | Encounter Summary ---
Author Organization [employer] ([place], [place], [place], [place]) Address [address] [place] [address] Care Team Providers Care Layout Worker Name Role Phone Unavailable Primary Care Provider Unavailabl e Encounter Details Date Type Department Care Team (Late st Contact Info) Description 08/27/2020 Transcribed Document [facility] [place] [facility] [place] [address] ProviderMariela MD [facility] [address] Social History Tobacco Use Types [...] Conversion Note - Mariela ProviderMD - 08/27/2020 10:00 PM CDT Pain [...] form. Electronically signed by Chantal, Maureen Conversion Wind Turbine Performance Engineer Cerner at 06/16/2022 8:28 PM CDT documented in this encounter Plan of Treatment Not on file documented as of this encounter Visit Diagnoses Not on filedocumented in this encounter
--- OUTSIDE RECORDS SUMMARY | 2024-08-30 07:33 | XMS_ITS | Encounter Summary ---
Author Organization [employer] ([place], [place], [place], [place]) Address [address] [place] [address] Care Team Providers Care Inspector Quality Assurance Name Role Phone Unavailable Primary Care Provider Unavailabl e Encounter Details Date Type Department Care Team (Late st Contact Info) Description 10/26/2020 Transcribed Document [facility] [place] [facility] [place] [address] ProviderMariela MD [facility] [address] Social History Tobacco Use Types [...] Conversion Note - Mariela ProviderMD - 10/26/2020 7:56 AM CDT ED [...]
--- OUTSIDE RECORDS SUMMARY | 2024-08-30 07:33 | XMS_ITS | Encounter Summary ---
Author Organization [employer] ([place], [place], [place], [place]) Address [address] [place] [address] Care Team Providers Care Agents' Records Clerk Name Role Phone Unavailable Primary Care Provider Unavailabl e Encounter Details Date Type Department Care Team (Late st Contact Info) Description 09/03/2020 Transcribed Document [facility] [place] [facility] [place] [address] ProviderMariela MD [address] [place], [place] [...] Policy Numbers : Insurance 1 Health Plan: [employer] Policy Number: [id number] Authorization Number: [id number] Insurance Primary Name : [employer] Policy Number: [id number] Authorization Status-Primary : Admit approved Reference Number-Primary : [id number] Authorization Number-Primary : [id number] Number of Days Authorized-Primary : 7 Day(s) Authorized Service Begin Date-Primary : 08/20/2020 EDT Authorized Service End Date-Primary : 08/27/2020 EDT Authorization Comments-Primary : [facility] all days covered per website Historical Authorization Comments-Primary : Comment 1: Uploaded cont stay clinicals (08/22-08/26/20) to [employer] Medicare via [employer]. (KARAN WATSON RN-Utilization Review 08/26/2020 10:04) Comment 2: Uploaded cont stay clinicals (08/21/20) to [employer] Medicare via [employer]. (KARAN WATSON RN-Utilization Review 08/21/2020 08:36) Comment 3: Note on [employer] website:Patient was initially scheduled for Right Patellar [...] AQUINO RN-Utilization Review 08/19/2020 15:20) Comment 4: [employer] Medicare approved per website for 1 day (TIESHA AQUINO RN-Utilization Review 08/19/2020 15:14) TIESHA AQUINO RN-Utilization Review - 09/03/2020 15:05 EDT documented in this encounter Plan of Treatment Not on file documented as of this encounter Visit Diagnoses Not on filedocumented in this encounter
--- OUTSIDE RECORDS SUMMARY | 2024-08-30 07:33 | XMS_ITS | Encounter Summary ---
Author Organization [employer] ([place], [place], [place], [place]) Address [address] [place] [address] Care Team Providers Care Dancer Or Choreographer Name Role Phone Unavailable Primary Care Provider Unavailabl e Encounter Details Date Type Department Care Team (Late st Contact Info) Description 08/28/2020 Transcribed Document [facility] [place] [facility] [address] ProviderMariela MD [address] [place] [address] Social History Tobacco Use [...] Conversion Note - Mariela Gates MD - 08/28/2020 9:17 [place] [address] SOFIA GILL :1940 Visit Time:08/20/2020 Your Visit Summary Your Care Team Admitting Physician - NIMO SAENZ MD-ORT Attending Physician - NIMO SAENZ MD-ORT Primary Care Physician - NILA CHO NP-JASMINE Referring Physician - NIMO SAENZ MD-ORT Your Diagnosis A. fib Acute blood loss [...] with food may reduce GI upset. Rehabilitation: [facility] for report Discharge Summary: fax to Transportation: [facility] will pickle processor for 10am September 27. Discharge Follow Up Instructions: Follow-up with Dr. Saenz as scheduled, Order Comment: Follow-up with PCP as scheduled or PRN Activity: Per Dr. Hameed recommendations, Discharge Activity: Other (use Special Instructions) Diet: Discharge Diet: Resume usual diet as tolerated Follow-Up Appointments Follow Up with SOLOMON MCCRACKEN PA-C When 09/09/2020 10:00 AM EDT Where: [address] [facility] [place] [address] [place] [address]- Medications What How Much When Instructions Next [...] (fluticasone 50 mcg/ inh nasal spray) 2 [place](s) Nostrils Both Two Times A Day as [...] or 4 frozen water bottles in the [facility] CUBE. ??? Continue to use Incentive Spirometer [...] Barley. Bulgur wheat. Millet. Bran muffins. Popcorn. Bloomery wafer crackers. ??? Vegetables Sweet potatoes. Spinach. Kale. Artichokes. Cabbage. Broccoli. Green peas. Carrots. Squash. ??? Fruits Berries. Pears. Apples. Oranges. Avocados. Prunes and raisins. Dried figs. ??? Meats and Other Protein Sources Darling, kidney, call, and soy beans. Split peas. [...] gray has 11 g of protein. ??? Creek seeds ??? 1 oz has 5.5 g [...] floor. ??? Place frequently used items in kyur-fs-gbncf places ??? Keep electrical cables out of [...] ? Using the bathroom. ? Using household operations research manager or toxic chemicals. ? Touching or taking [...] oh fen) Actamin, Anacin AF, Aurophen, Bromo [place], Children's Tylenol, Mapap, M-Pap, Pharbetol, Silapap Childrens, [...] is a pain reliever and a fever personal development educator. There are many brands and forms of [...] Never mix and match dosing devices between infant formulations of acetaminophen. You may need to [...] may report side effects to FDA at 7-074-YMX-5109. What other drugs will affect acetaminophen? Other drugs may affect acetaminophen, including prescription and ymjf-tfw-zrmbxts medicines, vitamins, and herbal products. Tell your [...] to ensure that the information provided by [employer]. ('[employer]') is accurate, up-to-date, and complete, but no guarantee is made to that effect. Drug information contained herein may be time sensitive. [employer] information has been compiled for use by healthcare practitioners and consumers in the [place] and therefore [employer] does not warrant that uses outside of the [place] are appropriate, unless specifically indicated otherwise. [employer] drug information does not endorse drugs, diagnose patients or recommend therapy. [employer] drug information is an informational resource designed [...] effective or appropriate for any given patient. [employer] does not assume any responsibility for any aspect of healthcare administered with the aid of information [employer] provides. The information contained herein is not intended to cover all possible uses, directions, precautions, warnings, drug interactions, allergic reactions, or adverse effects. If you have questions about the drugs you are taking, check with your doctor, nurse or pharmacist. Copyright 8499-4478 [employer]. Version: 21.04. Revision Date: 10/06/2019. aspirin (oral) [...] What is aspirin? Aspirin is a salicylate (rk-GYH-ys-ate) that is used to treat pain, and [...] may report side effects to FDA at 7-633-RRU-2429. What other drugs will affect aspirin? Ask [...] drugs may affect aspirin, including prescription and qpey-inh-wdgjifw medicines, vitamins, and herbal products. Not all [...] to ensure that the information provided by [employer] ('[employer]') is accurate, up-to-date, and complete, but no guarantee is made to that effect. Drug information contained herein may be time sensitive. [employer] information has been compiled for use by healthcare practitioners and consumers in the [place] and therefore [employer] does not warrant that uses outside of the [place] are appropriate, unless specifically indicated otherwise. [employer] drug information does not endorse drugs, diagnose patients or recommend therapy. [employer] drug information is an informational resource designed [...] effective or appropriate for any given patient. [employer] does not assume any responsibility for any aspect of healthcare administered with the aid of information [employer] provides. The information contained herein is not intended to cover all possible uses, directions, precautions, warnings, drug interactions, allergic reactions, or adverse effects. If you have questions about the drugs you are taking, check with your doctor, nurse or pharmacist. Copyright 0607-5275 [employer]. Version: 16.02. Revision Date: 10/18/2019. gabapentin ([place] [...] are a day sleeper or work a film processing shift supervisor. Some people have thoughts about suicide while [...] may report side effects to FDA at 0-757-GGP-0540. What other drugs will affect gabapentin? Using gabapentin with other drugs that make you drowsy or slow your breathing can cause dangerous side effects or . Ask your doctor before using opioid medication, a sleeping pill, cold or allergy medicine, a muscle relaxer, or medicine for anxiety or seizures. Other drugs may affect gabapentin, including prescription and ryfq-fnv-tbniiuo medicines, vitamins, and herbal products. Tell your [...] to ensure that the information provided by [employer] ('[employer]') is accurate, up-to-date, and complete, but no guarantee is made to that effect. Drug information contained herein may be time sensitive. [employer] information has been compiled for use by healthcare practitioners and consumers in the [place] and therefore [employer] does not warrant that uses outside of the [place] are appropriate, unless specifically indicated otherwise. [employer] drug information does not endorse drugs, diagnose patients or recommend therapy. [employer] drug information is an informational resource designed [...] effective or appropriate for any given patient. [employer] does not assume any responsibility for any aspect of healthcare administered with the aid of information [employer] provides. The information contained herein is not intended to cover all possible uses, directions, precautions, warnings, drug interactions, allergic reactions, or adverse effects. If you have questions about the drugs you are taking, check with your doctor, nurse or pharmacist. Copyright 0743-4109 [employer]. Version: 17.01. Revision Date: 03/26/2020. oxycodone (ox [...] The extended-release form of oxycodone is for sctyzj-ryq-kmvlc treatment of pain and should not be [...] against the law. Stop taking all other fsruhh-qan-mkbie opioid pain medicines when you start taking [...] may report side effects to FDA at 9-280-KJI-9698. What other drugs will affect oxycodone? You [...] may affect oxycodone. This includes prescription and geky-yod-skebmpo medicines, vitamins, and herbal products. Not all [...] to ensure that the information provided by [employer] ('[employer]') is accurate, up-to-date, and complete, but no guarantee is made to that effect. Drug information contained herein may be time sensitive. [employer] information has been compiled for use by healthcare practitioners and consumers in the [place] and therefore [employer] does not warrant that uses outside of the [place] are appropriate, unless specifically indicated otherwise. [employer] drug information does not endorse drugs, diagnose patients or recommend therapy. [employer] drug information is an informational resource designed [...] effective or appropriate for any given patient. [employer] does not assume any responsibility for any aspect of healthcare administered with the aid of information [employer] provides. The information contained herein is not intended to cover all possible uses, directions, precautions, warnings, drug interactions, allergic reactions, or adverse effects. If you have questions about the drugs you are taking, check with your doctor, nurse or pharmacist. Copyright 4928-8748 [employer]. Version: 14.02. Revision Date: 03/28/2020. oxycodone (ox [...] The extended-release form of oxycodone is for frwsrx-qtp-pulum treatment of pain and should not be [...] against the law. Stop taking all other yrdteg-hit-gcunk opioid pain medicines when you start taking [...] alcohol. Dangerous side effects or could occur. documented in this encounter Plan of Treatment Not on file documented as of this encounter Visit Diagnoses Not on filedocumented in this encounter
--- OUTSIDE RECORDS SUMMARY | 2024-08-30 07:33 | XMS_ITS | Encounter Summary ---
Author Organization [employer] ([place], [place], [place], [place]) Address [address] [place] [address] Care Team Providers Care Auto Body Repair Technician Name Role Phone Unavailable Primary Care Provider Unavailabl e Encounter Details Date Type Department Care Team (Late st Contact Info) Description 06/25/2019 Transcribed Document [facility] [place] [address] ProviderMariela MD [address] [place] [phone] Social History Tobacco Use Types Packs/Day Years [...] Conversion Note - Mariela ProviderMD - 06/25/2019 9:19 AM CDT On Going Discharge Planning Entered On: 06/25/2019 9:21 EDT Performed On: 06/25/2019 9:19 EDT by Halima Tripathi RN-PHONOGRAPH CARTRIDGE ASSEMBLERsenior search marketing analyst Progress Note Discharge Arrangements : Patient Post-Acute [...] Attend Multidisciplinary Rounds? : No Halima Tripathi RN-PHONOGRAPH CARTRIDGE ASSEMBLER - 06/25/2019 9:19 EDT Narrative Progress Note Narrative Progress Note : RRS Mod @ 50. Per chart review, no MDR this AM: Patient has thrush and has been placed on diflucan for treatment. PICC line in place to LUE. Awaiting bed at [facility]. CM will continue to follow for discharge planning purposes. Historical Progress Note : Per ID note of 06/22: continue ceftriaxone 2 gm daily and plan on 8 weeks of therapy with PICC line in lifelong oral suppression. Otherwise, patient has been accepted by [facility] and we are awaiting bed availability, likely next week. CM will continue to follow. Halima Tripathi RN-PHONOGRAPH CARTRIDGE ASSEMBLER - 06/24/19 13:49:26 RECEIVED CALL FROM ALFONSO WITH [facility]..PATIENT HAS BEEN ACCEPTED AND THEY WILL HAVE A BED SOMETIME NEXT WEEK..CM WILL CONTINUE TO FOLLOW AND INFORM DR DRIVER OF THE ABOVE..DEBORAH BENAVIDEZ RN-Shearer Operator - 06/23/19 11:45:46 RECEIVED CALL FROM ALFONSO WITH [facility]..PATIENT HAS BEEN ACCEPTED AND THEY WILL HAVE A BED SOMETIME NEXT WEEK..CM WILL CONTINUE TO FOLLOW AND INFORM DR DRIVER OF THE ABOVE..STEPHANIE SPOKE WITH PT AT BEDSIDE AND SHE IS AWARE THAT L-T[facility] HAS STARTED A PRECERT AND HOPEFULLY WILL HAVE BED AVAILABLE ON WEDNESDAY PENDING AUTHORIZATION..DR DRIVER AWARE..DEBORAH BENAVIDEZ RN-Shearer Operator - 06/23/19 17:11:55 Sent referral to LTACH through [facility]..........MIKE Adam RN-Shearer Operator - 06/21/19 16:57:54 Was planning for AKA, now patient will undergo a total joint revision with I&D. Will continue to follow.............MIKE Adam RN-Shearer Operator - 06/21/19 16:36:10 PICC line placed, Per LID, plan for 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 IV abx. Surgery scheduled for today................MIKE Adam RN-Shearer Operator - 06/21/19 10:06:05 No MDR this AM with provider. Patient with low-grade fever this AM and throughout the night. COTY was rescheduled for 06/20 for this reason. CM will continue to follow. Halima Tripathi RN-PHONOGRAPH CARTRIDGE ASSEMBLER - 06/20/19 11:50:51 Patient becoming more agitated and confused, refusing to wear oxygen. Patient now on CPAP, WBC increased, BC x2 positive for group b Strep. Dr Saenz to perform AKA tomorrow morning. Will continue to follow..............MIKE Adam RN-Shearer Operator - 06/19/19 11:35:19 Halima Tripathi RN-PHONOGRAPH CARTRIDGE ASSEMBLER - 06/25/2019 9:19 EDT Electronically signed by Maureen Cornejo Conversion Fast Food Assistant Restaurant Manager Cerner at 06/16/2022 8:08 PM CDT documented in this encounter Plan of Treatment Not on file documented as of this encounter Visit Diagnoses Not on filedocumented in this encounter
--- OUTSIDE RECORDS SUMMARY | 2024-08-30 07:33 | XMS_ITS | Encounter Summary ---
Author Organization [employer] ([place], [place], [place], [place]) Address [address] [place] [address] Care Team Providers Care Fundraising Coordinator Name Role Phone Unavailable Primary Care Provider Unavailabl e Encounter Details Date Type Department Care Team (Late st Contact Info) Description 07/19/2019 Transcribed Document [facility] [place] [facility] [place] [address] ProviderMariela MD [address] [place] [address] Social History Tobacco Use Types [...] Conversion Note - Mariela Gates MD - 07/19/2019 11:57 AM CDT Patient Education [...] 02/01/2017 Elsevier Interactive Patient Education ? 2019 [employer] documented in this encounter Plan of Treatment Not on file documented as of this encounter Visit Diagnoses Not on filedocumented in this encounter
--- OUTSIDE RECORDS SUMMARY | 2024-08-30 07:33 | XMS_ITS | Encounter Summary ---
Author Organization [employer] ([place], [place], [place], [place]) Address [address] [place] [address] Care Team Providers Care Netting Weaver Name Role Phone Unavailable Primary Care Provider Unavailabl e Encounter Details Date Type Department Care Team (Late st Contact Info) Description 10/26/[address] [facility] [place] Family Medicine [address] [place] [address] ProviderMariela MD [address] [place], [place] [phone] Social History Tobacco Use Types Packs/Day Years [...] Historical ProviderMD - 10/26/2020 2:06 AM CDT [place] Suicide Severity Rating Scale (C-SSRS) Entered On: 10/26/2020 3:22 EDT Performed On: 10/26/2020 3:19 EDT by Peggy Rayo RN [place] Suicide Severity Rating Scale (C-SSRS) CSSRS Past Month Wish to be : No CSSRS Past Month Suicidal Thoughts : No CSSRS Lifetime Suicide Behavior : No Suicide Severity Rating Score : 0 Suicide Severity Rating : No Additional Care Required at this time Peggy Rayo RN - 10/26/2020 3:19 EDT Electronically signed by Chantal [facility] Conversion Food And Beverage Server Cerner at 06/16/2022 8:06 PM CDT documented in this encounter Plan of Treatment Not on file documented as of this encounter Visit Diagnoses Not on filedocumented in this encounter
--- OUTSIDE RECORDS SUMMARY | 2024-08-30 07:33 | XMS_ITS | Encounter Summary ---
Author Organization [employer] ([place], [place], [place], [place]) Address [address] [place] [address] Care Team Providers Care Sales Representative Gas Service Name Role Phone Unavailable Primary Care Provider Unavailabl e Encounter Details Date Type Department Care Team (Late st Contact Info) Description 06/24/2019 Transcribed Document [facility] [place] [address] ProviderMariela MD [address] [place] [address] Social History Tobacco Use Types Packs/Day [...] Cerner Conversion Note - Mariela ProviderMD - 06/24/2019 9:00 AM CDT Pain [...]
--- OUTSIDE RECORDS SUMMARY | 2024-08-30 07:33 | XMS_ITS | Encounter Summary ---
Author Organization [employer] ([place], [place], [place], [place]) Address [address] [place] [address] Care Team Providers Care Surgical Territory Manager Name Role Phone Unavailable Primary Care Provider Unavailabl e Encounter Details Date Type Department Care Team (Late st Contact Info) Description 07/09/2019 Transcribed Document [facility] [place] Family Medicine [address] [place] [address] ProviderMairela MD [address] [place] [address] Social History Tobacco Use [...]
--- OUTSIDE RECORDS SUMMARY | 2024-08-30 07:33 | XMS_ITS | Encounter Summary ---
Author Organization [employer] ([place], [place], [place], [place]) Address [address] [place] [address] Care Team Providers Care Drop Forge Hand Name Role Phone Unavailable Primary Care Provider Unavailabl e Encounter Details Date Type Department Care Team (Late st Contact Info) Description 07/09/2019 Transcribed Document [facility] [place] [address] [place] [address] ProviderMariela MD [address] [place], [place] [id number] Social History Tobacco Use Types Packs/Day Years [...]
--- OUTSIDE RECORDS SUMMARY | 2024-08-30 07:33 | XMS_ITS | Encounter Summary ---
Author Organization [employer] ([place], [place], [place], [place]) Address [address] [place] [address] Care Team Providers Care Chief Load Dispatcher Name Role Phone Unavailable Primary Care Provider Unavailabl e Encounter Details Date Type Department Care Team (Late st Contact Info) Description 07/09/2019 Transcribed Document [facility] [place] [facility] [place] [address] ProviderMariela MD [address] [place] [phone] Social History Tobacco Use Types Packs/Day Years [...] Conversion Note - Mariela Gates MD - 07/09/2019 2:43 PM CDT Patient: SOFIA GILL Age: 79 [...] 0.9% 50 mL 2 Gram, IV Piggyback, [id number] cyanocobalamin 1,000 mcg tab 5,000 mcg 5 [...] Oral, Q4H fluticasone 0.05% nasal spray 2 [place], Nostrils Both, BID magnesium hydroxide 8% liq [...] 1-Time, Stop: 07/10/19 4:00:00 EDT, Nurse Collect. documented in this encounter Plan of Treatment Not on file documented as of this encounter Visit Diagnoses Not on filedocumented in this encounter
--- OUTSIDE RECORDS SUMMARY | 2024-08-30 07:33 | XMS_ITS | Encounter Summary ---
Author Organization [employer] ([place], [place], [place], [place]) Address [address] [place] [address] Care Team Providers Care Birth Certificate Clerk Name Role Phone Unavailable Primary Care Provider Unavailabl e Encounter Details Date Type Department Care Team (Late st Contact Info) Description 08/27/2018 Transcribed Document [facility] [place] [facility] [place] [address] ProviderMariela MD [address] [place] [address] Social History Tobacco Use Types Packs/Day Years [...] Historical ProviderMD - 08/27/2018 2:00 AM CDT Aquatics Assistant Department Head Details Entered On: 08/27/2018 0:45 EDT Performed [...]
--- OUTSIDE RECORDS SUMMARY | 2024-08-30 07:33 | XMS_ITS | Encounter Summary ---
Author Organization [employer] ([place], [place], [place], [place]) Address [address] [place] [address] Care Team Providers Care Web Machine Tender Name Role Phone Unavailable Primary Care Provider Unavailabl e Encounter Details Date Type Department Care Team (Late st Contact Info) Description 08/28/2020 Transcribed Document [facility] [place] [facility] [place] [address] ProviderMariela MD [facility] [place] [address] Social History Tobacco [...] Conversion Note - Mariela ProviderMD - 08/28/2020 1:26 PM CDT Final Discharge Planning Entered On: 08/28/2020 13:27 EDT Performed On: 08/28/2020 13:26 EDT by Moni Xavier Rn Final Discharge Planning Discharge Arrangements : Patient Post-Acute Information Patient Name: SOFIA BARLOW Gender: Female : 44 Age: 80 Years [place] Referral(s): Service: Organization: Business Address: Phone Number: [facility] at [address], [place], [address] Patient Offered Choice/Affiliations Explained : [...] denied patient for rehab. Isabelle from the [facility] spoke to patient and she can go Self pay. Patient will be going to room 208 at the [facility]. [facility] set up for 10 am on WednesdayAugust 28. Silva at [facility] notified of patient going to SNF per Esteban pharmacist. Scripts will be faxed over to Pharmacy at the [facility]. Case Management will continue to follow patient til discharge. Moni Xavier Rn - 08/28/2020 13:26 EDT Electronically signed by Maureen Cornejo Conversion Waiter/Waitress Second Class Cerner at 06/16/2022 8:21 PM CDT documented in this encounter Plan of Treatment Not on file documented as of this encounter Visit Diagnoses Not on filedocumented in this encounter
--- OUTSIDE RECORDS SUMMARY | 2024-08-30 07:33 | XMS_ITS | Encounter Summary ---
Author Organization [employer] ([place], [place], [place], [place]) Address [address] [place] [address] Care Team Providers Care Small Kick Press Operator Name Role Phone Unavailable Primary Care Provider Unavailabl e Encounter Details Date Type Department Care Team (Late st Contact Info) Description 06/25/2019 Transcribed Document [facility] [place] [facility] [place] [address] ProviderMariela MD [address] [place] [phone] Social History Tobacco Use Types Packs/Day Years [...]
--- OUTSIDE RECORDS SUMMARY | 2024-08-30 07:33 | XMS_ITS | Encounter Summary ---
Author Organization [employer] ([place], [place], [place], [place]) Address [address] [place] [address] Care Team Providers Care Director Prison Name Role Phone Unavailable Primary Care Provider Unavailabl e Encounter Details Date Type Department Care Team (Late st Contact Info) Description 07/19/2019 Transcribed Document [facility] [place] [facility] [place] [address] ProviderMariela MD [address] [place] [address] Social History Tobacco Use Types Packs/Day [...] 07/19/2019 11:43 AM CDT CareSet Assessment Discharge, [facility] Entered On: 07/19/2019 14:37 EDT Performed On: [...] Marisela Rangel RN - 07/19/2019 14:35 EDT documented in this encounter Plan of Treatment Not on file documented as of this encounter Visit Diagnoses Not on filedocumented in this encounter
--- OUTSIDE RECORDS SUMMARY | 2024-08-30 07:33 | XMS_ITS | Encounter Summary ---
Author Organization [employer] ([place], [place], [place], [place]) Address [address] [place] [address] Care Team Providers Care Financial Reporting Consultant Name Role Phone Unavailable Primary Care Provider Unavailabl e Encounter Details Date Type Department Care Team (Late st Contact Info) Description 07/19/2019 Transcribed Document [facility] [place] [facility] [place] [address] ProviderMariela MD [facility] [place] [address] Social History Tobacco Use Types Packs/Day Years [...] 07/19/2019 11:44 EDT Electronically signed by Chantal [facility] Conversion Dredge Pipe Installer Cerner at 06/16/2022 8:13 PM CDT documented in this encounter Plan of Treatment Not on file documented as of this encounter Visit Diagnoses Not on filedocumented in this encounter
--- OUTSIDE RECORDS SUMMARY | 2024-08-30 07:33 | XMS_ITS | Encounter Summary ---
Author Organization [employer] ([place], [place], [place], [place]) Address [address] [place] [address] Care Team Providers Care Patient Assessment Coordinator Name Role Phone Unavailable Primary Care Provider Unavailabl e Encounter Details Date Type Department Care Team (Late st Contact Info) Description 08/22/2020 Transcribed Document [facility] [place] [address] ProviderMariela [place] [address] Social History Tobacco Use Types [...]
--- OUTSIDE RECORDS SUMMARY | 2024-08-30 07:33 | XMS_ITS | Encounter Summary ---
Author Organization [employer] ([place], [place], [place], [place]) Address [address] [place] [address] Care Team Providers Care Fire Alarm Inspector Name Role Phone Unavailable Primary Care Provider Unavailabl e Encounter Details Date Type Department Care Team (Late st Contact Info) Description 08/28/2020 Transcribed Document [facility] [place] Family Medicine [address] [place] [address] ProviderMariela MD [address] [place] [address] Social History Tobacco Use Types [...]
--- OUTSIDE RECORDS SUMMARY | 2024-08-30 07:33 | XMS_ITS | Encounter Summary ---
Author Organization [employer] ([place], [place], [place], [place]) Address [address] [place] [address] Care Team Providers Care School Coordinator Name Role Phone Unavailable Primary Care Provider Unavailabl e Encounter Details Date Type Department Care Team (Late st Contact Info) Description 10/26/2020 Transcribed Document [facility] [place] [address] [place] [address] ProviderMariela MD [address] [place] [address] Social History Tobacco Use Types [...] [facility] called and transfer set up to [facility] to [facility] [address] Nancy Sood RN-PATIENT CARE BEDSIDE NON-EXEMPT - 10/26/2020 14:24 EDT Electronically signed by Maureen Cornejo Conversion Embedded Software Architect Cerner at 06/16/2022 8:09 PM CDT documented in this encounter Plan of Treatment Not on file documented as of this encounter Visit Diagnoses Not on filedocumented in this encounter
--- OUTSIDE RECORDS SUMMARY | 2024-08-30 07:33 | XMS_ITS | Encounter Summary ---
Author Organization [employer] ([place], [place], [place], [place]) Address [address] [place] [address] Care Team Providers Care Pmo Lead Name Role Phone Unavailable Primary Care Provider Unavailabl e Encounter Details Date Type Department Care Team (Late st Contact Info) Description 07/19/2019 Transcribed Document [facility] [place] [address] [place] [address] ProviderMariela MD [address] [place], [place] [id number] Social History Tobacco Use Types Packs/Day Years [...] Historical ProviderMD - 07/19/2019 2:00 AM CDT Emergency Vehicle Operator Details Entered On: 07/19/2019 2:02 EDT Performed [...] - 07/19/2019 2:01 EDT Electronically signed by Chantal [facility] Conversion Manufacturing Assembler Cerner at 06/16/2022 8:17 PM CDT documented in this encounter Plan of Treatment Not on file documented as of this encounter Visit Diagnoses Not on filedocumented in this encounter
--- OUTSIDE RECORDS SUMMARY | 2024-08-30 07:33 | XMS_ITS | Encounter Summary ---
Author Organization [employer] ([place], [place], [place], [place]) Address [address] [place] [address] Care Team Providers Care Education Site Manager Name Role Phone Unavailable Primary Care Provider Unavailabl e Encounter Details Date Type Department Care Team (Late st Contact Info) Description 08/28/2020 Transcribed Document [facility] [place] [facility] [place] [address] ProviderMariela MD [facility] [place] [address] Social History Tobacco Use Types [...] On: 08/28/2020 13:49 EDT by JAMES IBANEZ SHOE RECONDITIONER Discharge Summary Reason for Discharge : Discharged from hospital JAMES IBANEZ PTA - 08/28/2020 13:49 EDT Discharge Summary Comment, PT : Patient was discharged to rehab follow up from [facility] on 08/28/20 having met 0/2 acute therapy goals. At time of discharge patient was maxA x2 with bed mobility, and participated with exercises while sitting EOB. I agree with this discharge summary. Kiara Simon, PT KIARA SIMON, PT - 08/28/2020 15:05 EDT Shelter Goals Other PT LTG Grid Goal #1 [...] for bed MAX Ax2 08/26 JAMES IBANEZ, SHOE RECONDITIONER - 08/28/2020 13:49 EDT JAMES IBANEZ, SHOE RECONDITIONER - 08/28/2020 13:49 EDT JAMES IBANEZ, SHOE RECONDITIONER - 08/28/2020 13:49 EDT documented in this encounter Plan of Treatment Not on file documented as of this encounter Visit Diagnoses Not on filedocumented in this encounter
--- OUTSIDE RECORDS SUMMARY | 2024-08-30 07:33 | XMS_ITS | Encounter Summary ---
Author Organization [employer] ([place], [place], [place], [place]) Address [address] [place] [address] Care Team Providers Care Sea Foam Kiss Maker Name Role Phone Unavailable Primary Care Provider Unavailabl e Encounter Details Date Type Department Care Team (Late st Contact Info) Description 10/26/2020 Transcribed Document [facility] [place] [address] [place] [address] ProviderMariela MD [address] [place] [address] Social History Tobacco Use Types [...] 14:18 EDT ED Description of Event : OR called and handoff report given to Madison Murray OR staff Nancy Sood RN-PATIENT CARE BEDSIDE NON-EXEMPT - 10/26/2020 14:18 EDT Electronically signed by Maureen Cornejo Conversion Hazardous Waste Management Specialist Cerner at 06/16/2022 8:10 PM CDT documented in this encounter Plan of Treatment Not on file documented as of this encounter Visit Diagnoses Not on filedocumented in this encounter
--- OUTSIDE RECORDS SUMMARY | 2024-08-30 07:33 | XMS_ITS | Encounter Summary ---
Author Organization [employer] ([place], [place], [place], [place]) Address [address] [place] [address] Care Team Providers Care Channel Sales Director Name Role Phone Unavailable Primary Care Provider Unavailabl e Encounter Details Date Type Department Care Team (Late st Contact Info) Description 07/08/2019 Transcribed Document [facility] [place] Family Medicine [address] [place] [address] ProviderMariela MD [address] [place], [place] [phone] Social History Tobacco Use Types Packs/Day Years [...] All Active Orders Reviewed : Yes TOR ADAMES RN - 07/08/2019 16:31 EDT documented in this encounter Plan of Treatment Not on file documented as of this encounter Visit Diagnoses Not on filedocumented in this encounter
--- OUTSIDE RECORDS SUMMARY | 2024-08-30 07:33 | XMS_ITS | Encounter Summary ---
Author Organization [employer] ([place], [place], [place], [place]) Address [address] [place] [address] Care Team Providers Care Medical Assistant Float Name Role Phone Unavailable Primary Care Provider Unavailabl e Encounter Details Date Type Department Care Team (Late st Contact Info) Description 10/26/2020 Transcribed Document [facility] [place] [facility] Medicine [facility] [place] [address] ProviderMariela MD [address] [place] [address] Social History Tobacco Use Types [...] Historical ProviderMD - 10/26/2020 10:28 AM CDT Electronically signed by Chantal [facility] Conversion Chief Legal Officer Min at 06/16/2022 8:10 PM CDT documented in this encounter Plan of Treatment Not on file documented as of this encounter Visit Diagnoses Not on filedocumented in this encounter
--- OUTSIDE RECORDS SUMMARY | 2024-08-30 07:33 | XMS_ITS | Encounter Summary ---
Author Organization [employer] ([place], [place], [place], [place]) Address [address] [place] [address] Care Team Providers Care Planimeter Operator Name Role Phone Unavailable Primary Care Provider Unavailabl e Encounter Details Date Type Department Care Team (Late st Contact Info) Description 08/23/2020 Transcribed Document [facility] [place] [facility] [place] [address] ProviderMariela MD [address] [place] [address] Social History Tobacco Use Types [...] Cerner Conversion Note - Mariela ProviderMD - 08/23/2020 2:00 PM CDT PLEASE [...] Aspir 81 Oral, Daily [ x ] [place] filter 08/20 Consult note History :Babak filter. Present Treatments Results and Location in Medical Record [ x ] Monitoring post op 08/20 monitor pt on postop med surg floor [ x ] ASA order MD orders 08/20 MAR Aspirin 81mg, Oral BID CDS/Kiln Packer Signature: Charo Blancas ____ Phone #: [phone] Date/Time: 08/23/2020 ____ This is a permanent part of the Medical Record Q6 2019 [facility] Updated: documented in this encounter Plan of Treatment Not on file documented as of this encounter Visit Diagnoses Not on filedocumented in this encounter
--- OUTSIDE RECORDS SUMMARY | 2024-08-30 07:33 | XMS_ITS | Encounter Summary ---
Author Organization [employer] ([place], [place], [place], [place]) Address [address] [place] [address] Care Team Providers Care Blanket Inspector Name Role Phone Unavailable Primary Care Provider Unavailabl e Encounter Details Date Type Department Care Team (Late st Contact Info) Description 08/28/2020 Transcribed Document [facility] [place] [address] ProviderMariela MD [place] [address] Social History Tobacco Use Types [...] Historical ProviderMD - 08/28/2020 2:00 AM CDT Light Rail Signal Technician Details Entered On: 08/28/2020 2:20 EDT [...]
--- OUTSIDE RECORDS SUMMARY | 2024-08-30 07:33 | XMS_ITS | Encounter Summary ---
Author Organization [employer] ([place], [place], [place], [place]) Address [address] [place] [address] Care Team Providers Care Flute Teacher Name Role Phone Unavailable Primary Care Provider Unavailabl e Encounter Details Date Type Department Care Team (Late st Contact Info) Description 06/24/2019 Transcribed Document [facility] [place] [facility] [place] [address] ProviderMariela MD [address] [place] [address] Social History Tobacco Use Types [...] Conversion Note - Mariela ProviderMD - 06/24/2019 1:51 PM CDT Patient: [...] - Medical Enoxaparin 40 mg, SubCutaneous, Inj, [id number], Start 06/24/19 9:00:00 EDT, Stop 06/25/19 9:00:00 [...] PRN Chloraseptic Menthol 1.4% topical spray, 1 [place], Oral, Q2H, PRN cloNIDine, 0.1 mg= 1 [...] Daily fluticasone 50 mcg/inh nasal spray, 2 [place], Nostrils Both, BID, PRN gabapentin, 300 mg= 1 Cap, Oral, At Bedtime lisinopril, 10 mg= 1 Tab, Oral, Daily loratadine, 10 mg= 1 Tab, Oral, Daily Lovenox, 40 mg= 0.4 mL, SubCutaneous, [id number] magnesium sulfate, 2 Gram= 50 mL, IV [...] Lymph # 3.08 K/uL 06/24/2019 03:[address] [place] % 7.4 % 06/24/2019 03:[address] [place] # 1.17 K/uL (High) 06/24/2019 03:39 EDT [...] 1.1 06/23/2019 14:00 EDT Electronically signed by [facility] Conversion Delivery Analyst Cerner at 06/16/2022 8:24 PM CDT documented in this encounter Plan of Treatment Not on file documented as of this encounter Visit Diagnoses Not on filedocumented in this encounter
--- OUTSIDE RECORDS SUMMARY | 2024-08-30 07:33 | XMS_ITS | Encounter Summary ---
Author Organization [employer] ([place], [place], [place], [place]) Address [address] [place] [address] Care Team Providers Care Coat Tailor Name Role Phone Unavailable Primary Care Provider Unavailabl e Encounter Details Date Type Department Care Team (Late st Contact Info) Description 10/26/2020 Transcribed Document [facility] [place] [facility] [place] [address] ProviderMariela MD [address] [place] [address] Social History Tobacco Use Types Packs/Day [...] Conversion Note - Mariela ProviderMD - 10/26/2020 2:19 PM CDT ED [...] - 10/26/2020 14:19 EDT Electronically signed by [facility] Conversion Lawn Mower Cerner at 06/16/2022 8:04 PM CDT documented in this encounter Plan of Treatment Not on file documented as of this encounter Visit Diagnoses Not on filedocumented in this encounter
--- OUTSIDE RECORDS SUMMARY | 2024-08-30 07:33 | XMS_ITS | Encounter Summary ---
Author Organization [employer] ([place], [place], [place], [place]) Address [address] [place] [address] Care Team Providers Care Dial Painter Name Role Phone Unavailable Primary Care Provider Unavailabl e Encounter Details Date Type Department Care Team (Late st Contact Info) Description 07/19/2019 Transcribed Document [facility] [place] Family Medicine [facility] [place] [address] ProviderMariela MD [address] [place] [address] Social History Tobacco Use Types [...] other medicines or supplements? Many prescription and mysm-ivl-trtrclo medicines can interfere with warfarin. Talk with your health care provider or your pharmacist before starting or stopping any new medicines. This includes wpov-xai-wehqprj vitamins, dietary supplements, herbal medicines, and pain medicines. Your warfarin dosage may need to be adjusted. ??? Some common bbhd-nen-dmfxdeh medicines that may increase the risk of [...] that you work with a diet and supervisor nutritional yeast (dietitian). ??? Vitamin K decreases the effect [...] cooked. ??? Collards, raw or cooked. ??? Vietnamese chard, raw or cooked. ??? Mustard greens, raw or cooked. ??? Turnip greens, raw or cooked. ??? Parsley, raw. ??? Broccoli, cooked. ??? Noodles, eggs, and spinach, enriched. ??? [place] sprouts, raw or cooked. ??? Beet greens, [...] diet. ??? You start or stop any nmac-zkt-ehpcfco medicine, prescription medicine, or dietary supplement. ??? [...] 02/15/2006 Document Revised: 06/21/2017 Document Reviewed: 05/13/2016 tok tok tok Interactive Patient Education ? 2019 [employer] Hypertension, Adult High blood pressure (hypertension) [...] provider. This is important. Medicines ??? Take pxse-zyi-bxvpezw and prescription medicines only as told by [...] 02/15/2006 Document Revised: 10/26/2018 Document Reviewed: 10/26/2018 tok tok tok Interactive Patient Education ? 2019 [employer] How to Use a Knee Immobilizer [...] 02/01/2017 Elsevier Interactive Patient Education ? 2019 Elsevier Inc. documented in this encounter Plan of Treatment Not on file documented as of this encounter Visit Diagnoses Not on filedocumented in this encounter
--- OUTSIDE RECORDS SUMMARY | 2024-08-30 07:34 | XMS_ITS | Encounter Summary ---
Author Organization [employer] ([place], [place], [place], [place]) Address [address] [place] [address] Care Team Providers Care Orange Peel Operator Name Role Phone Unavailable Primary Care Provider Unavailabl e Encounter Details Date Type Department Care Team (Late st Contact Info) Description 07/19/2019 Transcribed Document [facility] [place] Family [place] [facility] [place] [address] ProviderMariela MD [address] [place] [address] Social History Tobacco Use Types Packs/Day [...] Conversion Note - Mariela ProviderMD - 07/19/2019 9:00 AM CDT Pain [...]
--- OUTSIDE RECORDS SUMMARY | 2024-08-30 07:34 | XMS_ITS | Encounter Summary ---
Author Organization [employer] ([place], [place], [place], [place]) Address [address] [place] [address] Care Team Providers Care Tie Cutter Name Role Phone Unavailable Primary Care Provider Unavailabl e Encounter Details Date Type Department Care Team (Late st Contact Info) Description 07/10/2019 Transcribed Document [facility] [place] Family Medicine [facility] [place] [address] ProviderMariela MD [address] [place] [address] Social History Tobacco Use Types Packs/Day Years [...] AYDEE LARSON OTR/Bartolo - 07/10/2019 15:24 EDT documented in this encounter Plan of Treatment Not on file documented as of this encounter Visit Diagnoses Not on filedocumented in this encounter
--- OUTSIDE RECORDS SUMMARY | 2024-08-30 07:34 | XMS_ITS | Encounter Summary ---
Author Organization [employer] ([place], [place], [place], [place]) Address [address] [place] [address] Care Team Providers Care Louver Door Assembler Name Role Phone Unavailable Primary Care Provider Unavailabl e Encounter Details Date Type Department Care Team (Late st Contact Info) Description 07/10/2019 Transcribed Document [facility] [place] [facility] [place] [address] ProviderMariela MD [address] [place] [address] Social History Tobacco Use Types Packs/Day Years [...] Performed On: 07/11/2019 10:15 EDT by CAREY OLVERA, RN Intervention Information: indomethacin Performed by CAREY OLVERA, RN on 07/11/2019 09:15:00 EDT indomethacin,25mg Oral Pain Assessment Pain Assessment : Follow-up assessment CAREY OLVERA RN - 07/11/2019 11:12 EDT Electronically signed by Maureen Cornejo Conversion Salesperson [employer] at 06/16/2022 8:04 PM CDT documented in this encounter Plan of Treatment Not on file documented as of this encounter Visit Diagnoses Not on filedocumented in this encounter
--- OUTSIDE RECORDS SUMMARY | 2024-08-30 07:34 | XMS_ITS | Encounter Summary ---
Author Organization [employer] ([place], [place], [place], [place]) Address [address] [place] [address] Care Team Providers Care Automatic Spreader Operator Name Role Phone Unavailable Primary Care Provider Unavailabl e Encounter Details Date Type Department Care Team (Late st Contact Info) Description 07/19/2019 Transcribed Document [facility] [place] [address] ProviderMariela MD [address] [place] [address] Social History Tobacco Use Types Packs/Day Years [...] Performed On: 07/19/2019 14:14 EDT by Marisela Rangel director of vocational guidance Documentation Discharge Date/Time : 07/19/2019 14:14 EDT Patient Disposition, General : Discharge Discharge To : Assisted living Education Comment : needs reminders and reassurance Marisela Rangel RN - 07/19/2019 14:14 EDT documented in this encounter Plan of Treatment Not on file documented as of this encounter Visit Diagnoses Not on filedocumented in this encounter
--- OUTSIDE RECORDS SUMMARY | 2024-08-30 07:34 | XMS_ITS | Encounter Summary ---
Author Organization [employer] ([place], [place], [place], [place]) Address [address] [place] [address] Care Team Providers Care Crm Coordinator Name Role Phone Unavailable Primary Care Provider Unavailabl e Encounter Details Date Type Department Care Team (Late st Contact Info) Description 08/13/2020 Transcribed Document [facility] [place] [facility] [place] [address] ProviderMariela MD [address] [place] [address] Social History Tobacco Use Types Packs/Day [...] Cerner Conversion Note - Mariela ProviderMD - 08/13/2020 2:00 PM CDT Patient: SOFIA GILL Age: 80 Years Sex: Female : 1940 Chief Complaint Right Knee Pain Primary Care Provider NILA CHO, [facility] History of Present Illness This patient [...] W SYNTH SUB, CEMENT, OPEN (10/26/2016), Colonoscopy, [place] filter, lap band gastric bypass, left knee [...] Daily fluticasone 50 mcg/inh nasal spray 2 [place], PRN, Nostrils Both, BID furosemide 40 mg [...] PTT- 26.8 Fructosamine- 186 Electronically signed by Chantal, [facility] Conversion Track Template Maker Cerner at 06/16/2022 8:08 PM CDT documented in this encounter Plan of Treatment Not on file documented as of this encounter Visit Diagnoses Not on filedocumented in this encounter
--- OUTSIDE RECORDS SUMMARY | 2024-08-30 07:34 | XMS_ITS | Encounter Summary ---
Author Organization [employer] ([place], [place], [place], [place]) Address [address] [place] [address] Care Team Providers Care Tube Drawing Supervisor Name Role Phone Unavailable Primary Care Provider Unavailabl e Encounter Details Date Type Department Care Team (Late st Contact Info) Description 07/10/2019 Transcribed Document [facility] [place] Family Medicine [facility] [address] ProviderMariela MD [address] [place] [id number] Social History Tobacco Use Types Packs/Day Years [...] Conversion Note - Mariela Gates MD - 07/10/2019 5:30 PM CDT Patient: SOFIA GILL Age: 79 [...] 0.9% 50 mL 2 Gram, IV Piggyback, [id number] cyanocobalamin 1,000 mcg tab 5,000 mcg 5 [...] Oral, Q4H fluticasone 0.05% nasal spray 2 [place], Nostrils Both, BID magnesium hydroxide 8% liq [...] % 22.4 % Lymph # 1.61 x10(3)/uL [place] % 12.7 % HI [place] # 0.91 K/uL Eos % 6.3 % [...]
--- OUTSIDE RECORDS SUMMARY | 2024-08-30 07:34 | XMS_ITS | Encounter Summary ---
Author Organization [employer] ([place], [place], [place], [place]) Address [address] [place] [address] Care Team Providers Care Arnp Name Role Phone Unavailable Primary Care Provider Unavailabl e Encounter Details Date Type Department Care Team (Late st Contact Info) Description 08/23/2020 Transcribed Document [facility] [place] [facility] [place] [address] ProviderMariela MD [place] [address] Social History Tobacco Use Types [...] Conversion Note - Mariela ProviderMD - 08/23/2020 2:59 PM CDT On Going Discharge Planning Entered On: 08/23/2020 15:00 EDT Performed On: 08/23/2020 14:59 EDT by ADALBERTO BEE, RN Care Management Progress Note Discharge Arrangements : Patient Post-Acute Information Patient Name: SOFIA GILL Gender: Female : [birth year] Age: 80 Years [place] Referral(s): Service: Organization: Business Address: Phone Number: [facility] at [address], [address] Discharge Options Discussed with Patient : Discharge transportation, DME, store shopper rehabilitation Barriers to Discharge Identified : Clinical Condition of Patient Barriers to Discharge Unresolved : Clinical Condition of Patient Designation of Choice Signed : No Patient Offered Choice/Affiliations Explained : Yes List/Info Provided Pt/Fam/Support Person : Durable medical equipment, alf facilities Were Referrals Sent to Post Acute [...] to be discharged yet. Pending preautorization at [facility]. Called and spoke with Richard and [...] wants to go to Rehab and choose [facility] or [facility]. Referral faxed via Mike and brooke notified. 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 DME: patient has a wc, showerchair and a walker at home. CM: jevon jon will continue to follow patient TRANS: will need an [facility] to transport patient there. ADALBERTO BEE RN - 08/21/20 14:06:04 ADALBERTO BEE RN - 08/23/2020 14:59 EDT documented in this encounter Plan of Treatment Not on file documented as of this encounter Visit Diagnoses Not on filedocumented in this encounter
--- OUTSIDE RECORDS SUMMARY | 2024-08-30 07:34 | XMS_ITS | Encounter Summary ---
Author Organization [employer] ([place], [place], [place], [place]) Address [address] [place] [address] Care Team Providers Care Fire Engine Pump Operator Name Role Phone Unavailable Primary Care Provider Unavailabl e Encounter Details Date Type Department Care Team (Late st Contact Info) Description 08/23/2020 Transcribed Document [facility] [place] Medicine [facility] [place] [address] ProviderMariela MD [address] [place] [address] Social History Tobacco Use Types [...] Historical ProviderMD - 08/23/2020 2:00 AM CDT German Instructor Details Entered On: 08/23/2020 0:04 EDT Performed [...] Caitlyn Fallon Rn - 08/23/2020 0:03 EDT documented in this encounter Plan of Treatment Not on file documented as of this encounter Visit Diagnoses Not on filedocumented in this encounter
--- OUTSIDE RECORDS SUMMARY | 2024-08-30 07:34 | XMS_ITS | Encounter Summary ---
Author Organization [employer] ([place], [place], [place], [place]) Address [address] [place] [address] Care Team Providers Care Board Handler Name Role Phone Unavailable Primary Care Provider Unavailabl e Encounter Details Date Type Department Care Team (Late st Contact Info) Description 07/10/2019 Transcribed Document [facility] [place] [facility] [place] [address] ProviderMariela MD [address] [place] [address] Social History Tobacco Use Types Packs/Day [...] Conversion Note - Mariela ProviderMD - 07/10/2019 10:09 AM CDT Patient: SOFIA GILL Age: 79 years Sex: Female : 1940 Associated Diagnoses: None Author: CHRISSY HENDERSON, PharmD, BCPS HPI: 06/15 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 Rx to follow, Chrissy Henderson, PharmD [phone] Electronically signed by Chantal, [facility] Conversion Dredge Hand Cerner at 06/16/2022 8:18 PM CDT documented in this encounter Plan of Treatment Not on file documented as of this encounter Visit Diagnoses Not on filedocumented in this encounter
--- OUTSIDE RECORDS SUMMARY | 2024-08-30 07:34 | XMS_ITS | Encounter Summary ---
Author Organization [employer] ([place], [place], [place], [place]) Address [address] [place] [address] Care Team Providers Care Upkeep Mechanic Name Role Phone Unavailable Primary Care Provider Unavailabl e Encounter Details Date Type Department Care Team (Late st Contact Info) Description 08/24/2020 Transcribed Document [facility] [place] [facility] [place] [address] ProviderMariela MD [facility] [place] [address] Social History Tobacco Use Types [...] Historical ProviderMD - 08/24/2020 2:00 AM CDT Parts Back Counter Man Details Entered On: 08/24/2020 1:19 EDT Performed [...]
--- OUTSIDE RECORDS SUMMARY | 2024-08-30 07:34 | XMS_ITS | Encounter Summary ---
Author Organization [employer] ([place], [place], [place], [place]) Address [address] [place] [address] Care Team Providers Care Route Sales Person Name Role Phone Unavailable Primary Care Provider Unavailabl e Encounter Details Date Type Department Care Team (Late st Contact Info) Description 07/10/2019 Transcribed Document [facility] [place] Family Medicine [address] [place] [address] ProviderMariela MD [address] [place] [address] Social History Tobacco Use Types [...] Bibi Gallagher RN - 07/10/2019 3:21 EDT Electronically signed by Chantal [facility] Conversion Marketing And Communications Officer Min at 06/16/2022 8:22 PM CDT documented in this encounter Plan of Treatment Not on file documented as of this encounter Visit Diagnoses Not on filedocumented in this encounter
--- OUTSIDE RECORDS SUMMARY | 2024-08-30 07:34 | XMS_ITS | Encounter Summary ---
Author Organization [employer] ([place], [place], [place], [place]) Address [address] [place] [address] Care Team Providers Care Elevator Troubleshooter Name Role Phone Unavailable Primary Care Provider Unavailabl e Encounter Details Date Type Department Care Team (Late st Contact Info) Description 06/22/2019 Transcribed Document [facility] [place] [address] [place] [address] ProviderMariela MD [address] [place], [place] [id number] Social History Tobacco Use Types Packs/Day Years [...] Reid Ramon Rn-Charge - 06/22/2019 3:55 EDT Electronically signed by Maureen Cornejo Conversion Pharmacy Technician Program Director Min at 06/16/2022 8:16 PM CDT documented in this encounter Plan of Treatment Not on file documented as of this encounter Visit Diagnoses Not on filedocumented in this encounter
--- OUTSIDE RECORDS SUMMARY | 2024-08-30 07:34 | XMS_ITS | Encounter Summary ---
Author Organization [employer] ([place], [place], [place], [place]) Address [address] [place] [address] Care Team Providers Care Supervisor Tree Trimming Name Role Phone Unavailable Primary Care Provider Unavailabl e Encounter Details Date Type Department Care Team (Late st Contact Info) Description 08/26/2018 Transcribed Document [facility] [place] [facility] [place] [address] ProviderMariela MD [address] [place] [address] Social History Tobacco Use Types [...] Cerner Conversion Note - Mariela ProviderMD - 08/26/2018 10:59 AM CDT PLEASE MODIFY BEFORE SIGNING CLINICAL DOCUMENTATION CLARIFICATION FORM: Dear Dr. 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 CDS Signature: Leonarda BOWLING, RN Phone #: [phone] This is a permanent part of the Medical Record documented in this encounter Plan of Treatment Not on file documented as of this encounter Visit Diagnoses Not on filedocumented in this encounter
--- OUTSIDE RECORDS SUMMARY | 2024-08-30 07:34 | XMS_ITS | Encounter Summary ---
Author Organization [employer] ([place], [place], [place], [place]) Address [address] [place] [address] Care Team Providers Care Heating And Cooling Systems Engineer Name Role Phone Unavailable Primary Care Provider Unavailabl e Encounter Details Date Type Department Care Team (Late st Contact Info) Description 07/19/2019 Transcribed Document [facility] [place] Medicine [facility] [place] [address] ProviderMariela MD [address] [place] [phone] Social History Tobacco Use Types Packs/Day Years [...] Conversion Note - Historical ProviderMD - 07/19/2019 9:15 AM CDT Care Management [...] 13:41:45 07/17/2019 Call received from Tati Erickson [facility], with approval for LTAC services. Last covered date 07/18/2019 with anticipated DC on 07/19/2019. Please fax DC summary on date of discharge. Auth#[id number]. СВЕТЛАНА WANG - 07/17/19 11:32:16 07/17/[address] Snyder (ID), he is in agreement to discharge to SNF on Wednesday, he would like for her to follow-up with the consulting ID (Dr. Stock) in 1 week upon discharge. TELEHEALTH appointment scheduled with Dr. Stock for 07/25/2019 @ 1600. [facility] will call Lexy to facilitate this visit. СВЕТЛАНА WANG - 07/17/19 10:32:31 07/17/2019 faxed clinical review the [facility] at [phone] to request approval for extended ltac services. Auth#[id number], awaiting approval. CM/Discharge plan attached to review. СВЕТЛАНА WANG - 07/17/19 09:06:05 07/17/[address] Jaffe's progress note, yahaira may be removed if okay with Dr. Saenz's office. Per our WOCN, Dr. Saenz's office said they need to see her before they make that decision. Appt scheduled for tomorrow, 07/18/2019 @ 1415; [facility] round-trip transport scheduled for 1315 pick-up ([id number]). Spoke with Lexy Valdez, they have not yet began the patient's insurance preauth, they will today, and be ready to admit on Wednesday. Dr. Jaffe notified and in agreement. [facility] rescheduled for discharge 07/19/2019 @ 1400 ([id number]). YOANNA ARAUJO RN - 07/14/19 15:41:31 Yoanna Araujo 07/13/2019 1500 - patient has accepted bed offer at [facility], she will be transported on WednesdayJuly 16 at 2pm by [facility] Confirmation # [id number]. She declined the bed offer at [facility]. Dr. Jaffe notified of discharge plan. YOANNA ARAUJO RN - 07/13/19 14:37:44 Yoanna Araujo 07/13/2019 1400 received call from Ratna with [facility] offering patient a bed, Received call from Isabelle with [facility] she is looking at patient and needed a current height and weight. Still waiting to see if any other bed offers come through. I also sent referral to [facility]. YOANNA ARAUJO RN - 07/13/19 11:04:03 Yoanna Araujo 07/13/2019 1100 faxed out referral for placement for patient to [facility], [facility]. Awaiting call backs. СВЕТЛАНА WANG - 07/12/19 12:19:17 07/12/2019 Fax received from [facility] with approval for LTAC services with a request for updated discharge plans and clinical info to support needs if not discharged. Auth#[id number]. Clinical review or discharge summary to be faxed by 07/17/2019. YOANNA ARAUJO RN - 07/12/19 08:39:48 Yoanna Araujo 07/12/2019 0830 - faxed clinical review the [facility] at [phone] to request approval for extended ltac services. Auth#[id number], awaiting approval. YOANNA ARAUJO RN - 06/29/19 [...] health and she has been to the [facility] and [facility] in the past. She has the following equipment at home: wheel chair, walker, cane and shower chair. Her discharge plan is to go to rehab prior to returning home. PCP: Flavia MARQUEZ [address] [place] [address] Legal Associate: Dr. Shemar Barger [address] [facility] [address] [facility] [address] [address] Clemente Del Rio MD - Rheumatology - [address] [place] [address] Preferences: Home Health: [facility]: no preferences DME: [facility] - [address], [place] [address] Snf: [facility] facility: no preferences Will continue to monitor patient for anticipated discharge needs YOANNA ARAUJO, EDDIE - 06/29/19 08:30:20 Yoanna Araujo 06/29/2019829 received fax from [facility] with approval for extended ltac coverage with next clinical review due on 07/12/2019. Auth#[id number]. Will continue to follow for anticipated discharge needs. YOANNA ARAUJO RN - 06/28/19 08:35:06 Yoanna Araujo 06/28/2019829 Faxed clinical review to [facility] at to request approval for extended Ltac services. Auth#[id number]. Pending Approval. Documentation Status Complete : Yes СВЕТЛАНА WANG - 07/19/2019 9:15 EDT documented in this encounter Plan of Treatment Not on file documented as of this encounter Visit Diagnoses Not on filedocumented in this encounter
--- OUTSIDE RECORDS SUMMARY | 2024-08-30 07:34 | XMS_ITS | Encounter Summary ---
Author Organization [employer] ([place], [place], [place], [place]) Address [address] [place] [address] Care Team Providers Care Java Software Architect Name Role Phone Unavailable Primary Care Provider Unavailabl e Encounter Details Date Type Department Care Team (Late st Contact Info) Description 08/23/2020 Transcribed Document [facility] [place] Family Medicine [facility] [place] [address] ProviderMariela MD [address] [place] [address] Social History Tobacco Use Types [...] Conversion Note - Mariela ProviderMD - 08/23/2020 5:00 AM CDT Pain [...]
--- OUTSIDE RECORDS SUMMARY | 2024-08-30 07:34 | XMS_ITS | Encounter Summary ---
Author Organization [employer] ([place], [place], [place], [place]) Address [address] [place] [address] Care Team Providers Care Rug Dyer Name Role Phone Unavailable Primary Care Provider Unavailabl e Encounter Details Date Type Department Care Team (Late st Contact Info) Description 08/13/2020 Transcribed Document [facility] [place] [address] [place] [address] ProviderMariela MD [address] [place] [address] Social History Tobacco Use Types [...]
--- OUTSIDE RECORDS SUMMARY | 2024-08-30 07:34 | XMS_ITS | Encounter Summary ---
Author Organization [employer] ([place], [place], [place], [place]) Address [address] [place] [address] Care Team Providers Care State Editor Name Role Phone Unavailable Primary Care Provider Unavailabl e Encounter Details Date Type Department Care Team (Late st Contact Info) Description 07/10/2019 Transcribed Document [facility] [place] [facility] [place] [address] ProviderMariela MD [address] [place] [phone] Social History Tobacco Use Types Packs/Day Years [...] Historical ProviderMD - 07/10/2019 2:00 AM CDT Costumed Character Entertainer Details Entered On: 07/10/2019 3:21 EDT Performed On: 07/10/2019 2:00 EDT by Bibi Gallagher RN Order Details Transport Mode Order Detail : Stretcher/Gurney Isolation Precautions Order Detail : Standard Precautions Order Detail : N/A IV Order Detail : 0 Oxygen Order Detail : 0 Nurse Collect Order Detail : 1 Lift/Transfer : Moderate assist Central Line Order Detail : Yes Room Service : Appropriate Arterial Line : No Bibi Gallagher RN - 07/10/2019 3:21 EDT Electronically signed by Chantal [facility] Conversion Char Filter Operator Cerner at 06/16/2022 8:10 PM CDT documented in this encounter Plan of Treatment Not on file documented as of this encounter Visit Diagnoses Not on filedocumented in this encounter
--- OUTSIDE RECORDS SUMMARY | 2024-08-30 07:34 | XMS_ITS | Encounter Summary ---
Author Organization [employer] ([place], [place], [place], [place]) Address [address] [place] [address] Care Team Providers Care Inspector Crystal Name Role Phone Unavailable Primary Care Provider Unavailabl e Encounter Details Date Type Department Care Team (Late st Contact Info) Description 08/19/2020 Transcribed Document [facility] [place] [facility] [place] [address] ProviderMariela MD [address] [place] [address] Social History Tobacco Use Types [...] Cerner Conversion Note - Mariela ProviderMD - 08/19/2020 3:20 PM CDT UM Authorization Entered On: 08/19/2020 15:20 EDT Performed On: 08/19/2020 15:20 EDT by TIESHA AQUINO RN-Utilization Review Primary Insurance Authorization Authorization and Policy Numbers : Insurance 1 Health Plan: [facility] MEDICARE ADVANTAGE Policy Number: [id number] Authorization Number: [id number] Insurance Primary Name : [employer] MEDICARE ADVANTAGE Policy Number: [id number] Authorization Status-Primary : Admit approved Reference Number-Primary : [id number] Authorization Number-Primary : [id number] Number of Days Authorized-Primary : 0 Day(s) Authorized Service Begin Date-Primary : 08/20/2020 EDT Authorized Service End Date-Primary : 08/20/2020 EDT Authorization Comments-Primary : Note on [facility] website:Patient was initially scheduled for Right [...] surgery. Historical Authorization Comments-Primary : Comment 1: [facility] Medicare approved per website for 1 day (TIESHA AQUINO RN-Utilization Review 08/19/2020 15:14) TIESHA AQUINO RN-Utilization Review - 08/19/2020 15:20 EDT Electronically signed by Maureen Cornejo Conversion Reflector Driller And Deburrer Cerner at 06/16/2022 8:02 PM CDT documented in this encounter Plan of Treatment Not on file documented as of this encounter Visit Diagnoses Not on filedocumented in this encounter
--- OUTSIDE RECORDS SUMMARY | 2024-08-30 07:34 | XMS_ITS | Encounter Summary ---
Author Organization [employer] ([place], [place], [place], [place]) Address [address] [place] [address] Care Team Providers Care Ammunition Components Inspector Name Role Phone Unavailable Primary Care Provider Unavailabl e Encounter Details Date Type Department Care Team (Late st Contact Info) Description 06/24/2019 Transcribed Document [facility] [place] [facility] [place] [address] ProviderMariela MD [address] [place] [address] Social History Tobacco Use Types Packs/Day [...] Conversion Note - Mariela ProviderMD - 06/24/2019 3:07 PM CDT Patient: [...] 0.9% 50 mL 2 Gram, IV Piggyback, [id number] cyanocobalamin 1,000 mcg tab 5,000 mcg 5 Tab, Oral, Daily docusate sodium 100 mg cap 100 mg 1 Cap, Oral, BID DULoxetine DR 60 mg cap 60 mg 1 Cap, Oral, Daily enoxaparin 40 mg/0.4 mL inj 40 mg 0.4 mL, SubCutaneous, [id number] gabapentin 300 mg cap 300 mg 1 [...] At Bedtime fluticasone 0.05% nasal spray 2 [place], Nostrils Both, BID LORazepam 2 mg/mL inj [...] Topical, Q1H phenol 1.4% throat spray 1 [place], Oral, Q2H potassium chloride 10 mEq 100 [...] % 19.4 % Lymph # 3.08 K/uL [place] % 7.4 % [place] # 1.17 K/uL HI Eos % 2.9 [...] % LOW ALYC # 3 K/uL NA [place] Percent Man 6 % HI Myelo Percent [...]
--- OUTSIDE RECORDS SUMMARY | 2024-08-30 07:34 | XMS_ITS | Encounter Summary ---
Author Organization [employer] ([place], [place], [place], [place]) Address [address] [place] [address] Care Team Providers Care Mallet And Die Cutter Name Role Phone Unavailable Primary Care Provider Unavailabl e Encounter Details Date Type Department Care Team (Late st Contact Info) Description 08/26/2018 Transcribed Document [facility] Radiology [address] [place] [address] Emely Atkinson MD [address] [place] [address] Social History Tobacco Use Types Packs/Day [...]
--- OUTSIDE RECORDS SUMMARY | 2024-08-30 07:34 | XMS_ITS | Encounter Summary ---
Author Organization [employer] ([place], [place], [place], [place]) Address [address] [place] [address] Care Team Providers Care Director Of Epidemiology Name Role Phone Unavailable Primary Care Provider Unavailabl e Encounter Details Date Type Department Care Team (Late st Contact Info) Description 08/27/2018 Transcribed Document [facility] [place] [address] ProviderMariela MD [address] [place] [address] Social History Tobacco Use Types Packs/Day Years Used Date Smoking Tobacco: Never Assessed Comments Unknown Sex and Gender Information Value Date Recorded Sex Assigned at Female 09/02/2021 8:57 PM CDT Legal Sex Female 6:58 PM CDT Gender Identity Female 09/02/2021 8:57 PM CDT Sexual Orientation Not on file documented as of this encounter Miscellaneous Notes * Cerner Conversion Note - Mariela ProviderMD - 08/27/2018 3:00 PM CDT Pain [...]
--- OUTSIDE RECORDS SUMMARY | 2024-08-30 07:34 | XMS_ITS | Encounter Summary ---
Author Organization [employer] ([place], [place], [place], [place]) Address [address] [address] Care Team Providers Care Data Mining Analyst Name Role Phone Unavailable Primary Care Provider Unavailabl e Encounter Details Date Type Department Care Team (Late st Contact Info) Description 07/10/2019 Transcribed Document [facility] [place] [address] [place] [address] ProviderMariela MD [address] [place] [address] Social History Tobacco Use [...] and ensure in the am (per pt wanting ONS TID). Will continue to monitor. [...]
--- OUTSIDE RECORDS SUMMARY | 2024-08-30 07:34 | XMS_ITS | Encounter Summary ---
Author Organization [employer] ([place], [place], [place], [place]) Address [address] [place] [address] Care Team Providers Care Pattern Data Operator Name Role Phone Unavailable Primary Care Provider Unavailabl e Encounter Details Date Type Department Care Team (Late st Contact Info) Description 07/10/2019 Transcribed Document [facility] [place] [address] ProviderMariela MD [address] [place] [address] Social History Tobacco Use Types Packs/Day Years [...] Georgina Olivo RN - 07/10/2019 21:01 EDT documented in this encounter Plan of Treatment Not on file documented as of this encounter Visit Diagnoses Not on filedocumented in this encounter
--- OUTSIDE RECORDS SUMMARY | 2024-08-30 07:34 | XMS_ITS | Encounter Summary ---
Author Organization [employer] ([place], [place], [place], [place]) Address [address] [place] [address] Care Team Providers Care Hook And Eye Machine Operator Name Role Phone Unavailable Primary Care Provider Unavailabl e Encounter Details Date Type Department Care Team (Late st Contact Info) Description 06/26/2019 Transcribed Document [facility] [place] [address] ProviderMariela MD [address] [place] [address] Social History Tobacco Use Types Packs/Day [...] HTN, OA, osteoporosis, left total shoulder replacement. OSKAR MARTÍNEZ, PT - 06/27/2019 11:41 EDT Visit [...] not go upstairs Ramp : Yes OSKAR MARTÍNEZ PT - 06/27/2019 11:41 EDT Prior Level [...] Impaired Left UE Strength : Impaired Hand Documentation Designer Test : bilaterally 4/5 Upper Extremity Comment : Patient has WFL's below 90 degrees bilaterally secondary to shoulder dysfunction OSKAR MARTÍNEZ PT - 06/27/2019 11:41 EDT Lower Extremity [...] : Gait belt, Walker, front wheel OSKAR MARTÍNEZ PT - 06/27/2019 11:41 EDT Neurological/Sensory Overall Sensory Response : Impaired Overall Sensory Response Comment : Pt describes numbness across left knee Response to Pain : Intact Response to Pain Comment : 09/07 left knee and my right knee hurts too OSKAR MARTÍNEZ, PT - 06/27/2019 11:41 EDT Activity Tolerance, PT Activity Comment : Very good OSKAR MARTÍNEZ, PT - 06/27/2019 11:41 EDT Cognition Assessment, [...] life-threatening infection which may require left OSKAR MORRIS, PT - 06/27/2019 11:41 EDT Plan of [...] OSKAR MARTÍNEZ, PT - 06/27/2019 11:41 EDT Assisted Goals Mobility/Bed Mobility LTG PT Grid Goal #1 Activity : Supine to sit Assist : Independent, modified Equipment : Bed, hospital Date to Meet : 07/25/2019 EDT Goal Status : Intial Goal OSKAR MARTÍNEZ PT - 06/27/2019 11:41 EDT Transfer LTG [...] Plan for Treatment : Per POC OSKAR MARTÍNEZ PT - 06/27/2019 11:41 EDT Pain Assessment [...] 06/27/2019 11:41 EDT Electronically signed by Chantal [facility] Conversion Group Fitness Instructor Cerner at 06/16/2022 8:02 PM CDT documented in this encounter Plan of Treatment Not on file documented as of this encounter Visit Diagnoses Not on filedocumented in this encounter
--- OUTSIDE RECORDS SUMMARY | 2024-08-30 07:34 | XMS_ITS | Encounter Summary ---
Author Organization [employer] ([place], [place], [place], [place]) Address [address] [place] [address] Care Team Providers Care Graining Press Operator Name Role Phone Unavailable Primary Care Provider Unavailabl e Encounter Details Date Type Department Care Team (Late st Contact Info) Description 06/26/2019 Transcribed Document [facility] [place] [facility] [place] [address] ProviderMariela MD [address] [place] [address] Social History Tobacco Use Types Packs/Day [...] Conversion Note - Mariela ProviderMD - 06/26/2019 8:18 PM CDT Pain [...]
--- OUTSIDE RECORDS SUMMARY | 2024-08-30 07:34 | XMS_ITS | Encounter Summary ---
Author Organization [employer] ([place], [place], [place], [place]) Address [address] [place] [address] Care Team Providers Care Senior Db2 Systems Programmer Name Role Phone Unavailable Primary Care Provider Unavailabl e Encounter Details Date Type Department Care Team (Late st Contact Info) Description 06/22/2019 Transcribed Document [facility] [place] Family Medicine [facility] [place] [address] ProviderMariela MD [address] [place] [address] Social History Tobacco Use Types Packs/Day Years [...] Type of Patch : scopolamine (Transderm-Scop) Nemo Macario RN - 06/23/2019 4:15 EDT documented in this encounter Plan of Treatment Not on file documented as of this encounter Visit Diagnoses Not on filedocumented in this encounter
--- OUTSIDE RECORDS SUMMARY | 2024-08-30 07:34 | XMS_ITS | Encounter Summary ---
Author Organization [employer] ([place], [place], [place], [place]) Address [address] [place] [address] Care Team Providers Care Eap Consultant Name Role Phone Unavailable Primary Care Provider Unavailabl e Encounter Details Date Type Department Care Team (Late st Contact Info) Description 06/22/2019 Transcribed Document [facility] [place] Medicine [facility] [place] [address] ProviderMariela MD [facility] [place] [address] Social History Tobacco Use Types [...] Cerner Conversion Note - Mariela ProviderMD - 06/22/2019 12:53 PM CDT Patient: [...] PRN Chloraseptic Menthol 1.4% topical spray, 1 [place], Oral, Q2H, PRN cloNIDine, 0.1 mg= 1 [...] Daily fluticasone 50 mcg/inh nasal spray, 2 [place], Nostrils Both, BID, PRN gabapentin, 300 mg= [...] ALYC # 1 K/uL 06/22/2019 02:40 EDT [place] Percent Man 6 % (High) 06/22/2019 02:40 EDT [place] Percent Man 3 % (High) 06/22/2019 02:40 EDT Myelo Percent Man 2 % (High) 06/22/2019 02:40 EDT RBC Morphology Normal 06/22/2019 02:[address] Estimate Adequate 06/22/2019 02:40 EDT Body Fluid Type Synovial fluid 06/21/2019 12:55 EDT Color BF Red 06/21/2019 12:55 EDT Appearance BF Bloody 06/21/2019 12:55 EDT Auto WBC/[place] BF [id number] /uL (High) 06/21/2019 12:55 EDT Auto RBC BF [id number] /uL (High) 06/21/2019 12:55 EDT Neutrophils Body [...]
--- OUTSIDE RECORDS SUMMARY | 2024-08-30 07:34 | XMS_ITS | Encounter Summary ---
Author Organization [employer] ([place], [place], [place], [place]) Address [address] [place] [address] Care Team Providers Care Media Librarian Name Role Phone Unavailable Primary Care Provider Unavailabl e Encounter Details Date Type Department Care Team (Late st Contact Info) Description 06/22/2019 Transcribed Document [facility] [place] [facility] [place] [address] ProviderMariela MD [address] [place] [address] Social History Tobacco Use Types Packs/Day [...] Conversion Note - Mariela ProviderMD - 06/22/2019 3:49 PM CDT Treatment [...] KACIE MAJOR, PT - 06/25/2019 13:15 EDT Dust Sampler Goals Other PT LTG Grid Goal #1 [...] it was agreed to not sit pt [facility] at this time. c/o velcro rubbing wtih [...]
--- OUTSIDE RECORDS SUMMARY | 2024-08-30 07:34 | XMS_ITS | Encounter Summary ---
Author Organization [employer] ([place], [place], [place], [place]) Address [address] [place] [address] Care Team Providers Care Machine Bunch Maker Name Role Phone Unavailable Primary Care Provider Unavailabl e Encounter Details Date Type Department Care Team (Late st Contact Info) Description 08/23/2020 Transcribed Document [facility] [place] Medicine [facility] [place] [address] ProviderMariela MD [address] [place] [address] Social History Tobacco Use Types [...] Conversion Note - Mariela ProviderMD - 08/23/2020 12:56 PM CDT PLEASE [...] with Marlex mesh [ x ] Hx Babak filter 08/20 PN Babak filter Present Treatments Results and Location in Medical Record [ x ] Inform about Blood transfusion 08/22 RN event note Informed pt that she needed a blood transfusion per standing order and explained the details [ x ] Monitoring H&H 08/22 PN Close monitoring H&H. CDS/Conveyor Weigher Operator Signature: Charo Blancas Phone #: [phone] Date/Time: 08/23/2020 ____ This is a permanent part of the Medical Record Q4 2019 [facility] Updated: documented in this encounter Plan of Treatment Not on file documented as of this encounter Visit Diagnoses Not on filedocumented in this encounter
--- OUTSIDE RECORDS SUMMARY | 2024-08-30 07:34 | XMS_ITS | Encounter Summary ---
Author Organization [employer] ([place], [place], [place], [place]) Address [address] [place] [address] Care Team Providers Care Cardiovascular Technician Name Role Phone Unavailable Primary Care Provider Unavailabl e Encounter Details Date Type Department Care Team (Late st Contact Info) Description 06/22/2019 Transcribed Document [facility] [place] [facility] [place] [address] ProviderMariela MD [address] [place] [address] Social History Tobacco Use Types Packs/Day Years [...] Historical ProviderMD - 06/22/2019 2:00 AM CDT Grain Packer Details Entered On: 06/22/2019 1:24 EDT Performed On: 06/22/2019 2:00 EDT by Reid Ramon Rn-Charge Order Details Transport Mode Order Detail [...]
--- OUTSIDE RECORDS SUMMARY | 2024-08-30 07:34 | XMS_ITS | Encounter Summary ---
Author Organization [employer] ([place], [place], [place], [place]) Address [address] [place] [address] Care Team Providers Care Staffing Analyst Name Role Phone Unavailable Primary Care Provider Unavailabl e Encounter Details Date Type Department Care Team (Late st Contact Info) Description 08/26/2018 Transcribed Document [facility] [place] [facility] [place] [address] ProviderMariela MD [address] [place] [address] Social History Tobacco Use Types Packs/Day [...] Conversion Note - Mariela ProviderMD - 08/26/2018 9:00 PM CDT Pain [...] form. Electronically signed by Maureen Cornejo Conversion Manager [employer] Retails Sales Cerner at 06/16/2022 8:17 PM CDT documented in this encounter Plan of Treatment Not on file documented as of this encounter Visit Diagnoses Not on filedocumented in this encounter
--- OUTSIDE RECORDS SUMMARY | 2024-08-30 07:34 | XMS_ITS | Encounter Summary ---
Author Organization [employer] ([place], [place], [place], [place]) Address [address] [place] [address] Care Team Providers Care Clerk To Justice Name Role Phone Unavailable Primary Care Provider Unavailabl e Encounter Details Date Type Department Care Team (Late st Contact Info) Description 08/13/2020 Transcribed Document [facility] [place] [facility] [place] [address] ProviderMariela MD [address] [place] [address] Social History Tobacco Use Types Packs/Day [...] Source : Stated Height Entry Format : Cottle Height, Feet : 5 ft(Converted to: 152 cm, 60 Inch) Height, Inches : 0 Inch(Converted to: 0 ft 0 Inch, 0.00 cm) Clinical Height : 152.4 cm Weight Source : Standing scale Weight Entry Format : Cottle Clinical Dosing Weight : 90.91 kg Weight, Pounds : 200 lb Body Surface Area (BSA) : 1.87 m2 Body Mass Index : 39.1 kg/m2 (HI) [place] Body Weight : 45 kg BINDU MOREIRA [...] by RUI EMMANUEL, RN) Infectious Disease History Has the patient [...] BINDU MOREIRA RN - 08/13/2020 10:24 EDT [place] Suicide Severity Rating Scale (C-SSRS) CSSRS Past [...] denies history Currently in Unsafe Situation : BINDU De León RN - 08/13/2020 10:24 EDT Teaching/Learning Assessment [...] Sy Legal Guardian : Gracia Support Person/Patient Medical Physicist : Yes Support Person/Pt Rep Name : Sam Barlow Sy Barlow Contact Password : Keily Support Person/Pt Rep Contact Information : zeinab (Sam) [phone] (Nancy Rust [phone] Want Family/Rep/Phys Notified of Admit : No Emergency Contact #1 : Sam Balrow Emergency Contact #1 Emergency Contact #1 Relationship : son Emergency Contact #2 : - Emergency Contact #2 Phone Number : - Emergency Contact #2 Relationship : - Primary Language : Icelandic Preferred Communication Mode : Verbal Communication Barrier : None Market Research Associate Needed : BINDU De León RN - [...]
--- OUTSIDE RECORDS SUMMARY | 2024-08-30 07:34 | XMS_ITS | Encounter Summary ---
Author Organization [employer] ([place], [place], [place], [place]) Address [address] [place] [address] Care Team Providers Care Stitch Bonding Machine Tender Name Role Phone Unavailable Primary Care Provider Unavailabl e Encounter Details Date Type Department Care Team (Late st Contact Info) Description 08/27/2018 Transcribed Document [facility] [place] [address] [place] [address] ProviderMariela MD [address] [place] [id number] Social History Tobacco Use Types Packs/Day Years Used Date Smoking Tobacco: Never Assessed Comments Unknown Sex and Gender Information Value Date Recorded Sex Assigned at Female 09/02/2021 8:57 PM CDT Legal Sex Female 6:58 PM CDT Gender Identity Female 09/02/2021 8:57 PM CDT Sexual Orientation Not on file documented as of this encounter Miscellaneous Notes * Cer[employer]ce Conversion Note - Historical ProviderMD - 08/27/2018 [...]
--- OUTSIDE RECORDS SUMMARY | 2024-08-30 07:34 | XMS_ITS | Encounter Summary ---
Author Organization [employer] ([place], [place], [place], [place]) Address [address] [place] [address] Care Team Providers Care Marine Extension Agent Name Role Phone Unavailable Primary Care Provider Unavailabl e Encounter Details Date Type Department Care Team (Late st Contact Info) Description 08/28/2018 Transcribed Document [facility] [place] [facility] [place] [address] ProviderMariela MD [address] [place] [address] Social History Tobacco Use Types Packs/Day Years [...] Historical ProviderMD - 08/28/2018 2:00 AM CDT Igniter Capper Details Entered On: 08/28/2018 4:53 EDT Performed [...] Pina Reina RN - 08/28/2018 4:53 EDT Electronically signed by Chantal [facility] Conversion Telehealth Nurse Cerner at 06/16/2022 8:24 PM CDT documented in this encounter Plan of Treatment Not on file documented as of this encounter Visit Diagnoses Not on filedocumented in this encounter
--- OUTSIDE RECORDS SUMMARY | 2024-08-30 07:34 | XMS_ITS | Encounter Summary ---
Author Organization [employer] ([place], [place], [place], [place]) Address [address] [place] [address] Care Team Providers Care Pick Up And Delivery Driver Name Role Phone Unavailable Primary Care Provider Unavailabl e Encounter Details Date Type Department Care Team (Late st Contact Info) Description 06/22/2019 Transcribed Document [facility] [place] [facility] [place] [address] ProviderMariela MD [address] [place] [address] Social History Tobacco Use Types Packs/Day [...] Conversion Note - Mariela ProviderMD - 06/22/2019 4:20 PM CDT Patient: [...] 0.9% 50 mL 2 Gram, IV Piggyback, [id number] cyanocobalamin 1,000 mcg tab 5,000 mcg 5 [...] At Bedtime fluticasone 0.05% nasal spray 2 [place], Nostrils Both, BID gabapentin 300 mg cap [...] Topical, Q1H phenol 1.4% throat spray 1 [place], Oral, Q2H potassium chloride 10 mEq 100 [...] % LOW ALYC # 1 K/uL NA [place] Percent Man 6 % HI [place] Percent Man 3 % [place] Myelo Percent [...] 1-Time, Stop: 06/23/19 4:00:00 EDT, Lab Collect. documented in this encounter Plan of Treatment Not on file documented as of this encounter Visit Diagnoses Not on filedocumented in this encounter
--- OUTSIDE RECORDS SUMMARY | 2024-08-30 07:34 | XMS_ITS | Encounter Summary ---
Author Organization [employer] ([place], [place], [place], [place]) Address [address] [place] [address] Care Team Providers Care E Learning Specialist Name Role Phone Unavailable Primary Care Provider Unavailabl e Encounter Details Date Type Department Care Team (Late st Contact Info) Description 06/26/2019 Transcribed Document [facility] [place] [facility] [address] ProviderMariela MD [address] [place] [address] Social History Tobacco Use Types Packs/Day Years [...]
--- OUTSIDE RECORDS SUMMARY | 2024-08-30 07:34 | XMS_ITS | Encounter Summary ---
Author Organization [employer] ([place], [place], [place], [place]) Address [address] [place] [address] Care Team Providers Care Information Technology Manager Name Role Phone Unavailable Primary Care Provider Unavailabl e Encounter Details Date Type Department Care Team (Late st Contact Info) Description 08/24/2020 Transcribed Document [facility] Family Medicine [facility] [place] [address] ProviderMariela MD [facility] [place] [address] Social History Tobacco Use Types [...]
--- OUTSIDE RECORDS SUMMARY | 2024-08-30 07:34 | XMS_ITS | Encounter Summary ---
Author Organization [employer] ([place], [place], [place], [place]) Address [address] [place] [address] Care Team Providers Care Magnetic Prospecting Operator Name Role Phone Unavailable Primary Care Provider Unavailabl e Encounter Details Date Type Department Care Team (Late st Contact Info) Description 06/26/2019 Transcribed Document [facility] [place] Family [facility] [address] ProviderMariela MD [address] [place] [address] Social History Tobacco Use Types Packs/Day [...] On: 06/27/2019 9:52 EDT by PATTY OWENS OTR/Bartolo General Information, OT Patient Orders : Order [...] Information Comment, OT : Pt [facility]fered [facility]. L knee replacement with complications and [...] IADLs, OT : Independent PATTY OWENS OTR/Bartolo 06/27/2019 13:35 EDT Prior LOF for IADLs, OT : Pt states Banks prior. Lives alone. Ramp into home. Does not go upstairs. PATTY OWENS OTR/L - 06/27/2019 13:35 EDT Upper Extremity Right UE Active ROM : Impaired Left UE Active ROM : Impaired Upper Extremity Strength Impaired : Yes Right UE Strength Comment : Pt impaired bilat UE ROM. 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 PATTY OWENS OTR/Bartolo - 06/27/2019 13:35 EDT Self Care/Home Management, OT [...] : Rehab Minimal assistance PATTY OWENS OTR/Bartolo - 06/27/2019 13:35 EDT Cognition Assessment, OT Orientation [...] Potential, OT : Good PATTY OWENS OTR/Bartolo [place] 06/27/2019 13:35 EDT Plan of Care, OT OT Tx Plan/Goals Established w Patient : Yes PATTY OWENS OTR/Bartolo 06/27/2019 12:24 EDT Care Home Goals, OT Bathing LTG Grid Goal #1 Activity : Bathing Assist : Assist, moderate Date to Meet : 07/11/2019 EDT Goal Status : Initial goal PATTY OWENS OTR/Bartolo - 06/27/2019 12:24 EDT Dressing, Lower Body [...] PATTY OWENS OTR/Bartolo - 06/27/2019 12:24 EDT Bed Mobility/ Bed [...] PATTY OWENS OTR/Bartolo - 06/27/2019 13:35 EDT [place] OT Charges OT Ther Activities Ea 15 Min : 2 OT Eval Moderate Complexity : 1 PATTY OWENS OTR/L - 06/27/2019 12:14 EDT Electronically signed by Maureen Cornejo Conversion Director Of Guidance In [employer] Cerner at 06/16/2022 8:02 PM CDT documented in this encounter Plan of Treatment Not on file documented as of this encounter Visit Diagnoses Not on filedocumented in this encounter
--- OUTSIDE RECORDS SUMMARY | 2024-08-30 07:34 | XMS_ITS | Encounter Summary ---
Author Organization [employer] ([place], [place], [place], [place]) Address [address] [place] [address] Care Team Providers Care Memorial Designer Name Role Phone Unavailable Primary Care Provider Unavailabl e Encounter Details Date Type Department Care Team (Late st Contact Info) Description 06/22/2019 Transcribed Document [facility] [place] [address] [place] [address] ProviderMariela MD [address] [place], [place] [id number] Social History Tobacco Use Types Packs/Day Years [...]
--- OUTSIDE RECORDS SUMMARY | 2024-08-30 07:34 | XMS_ITS | Encounter Summary ---
Author Organization [employer] ([place], [place], [place], [place]) Address [address] [place] [address] Care Team Providers Care Director Banking Name Role Phone Unavailable Primary Care Provider Unavailabl e Encounter Details Date Type Department Care Team (Late st Contact Info) Description 06/25/2019 Transcribed Document [facility] [place] Family Medicine [facility] [place] [address] ProviderMariela MD [address] [place] [address] Social History Tobacco Use Types Packs/Day [...] Conversion Note - Mariela ProviderMD - 06/25/2019 11:55 AM CDT Patient: [...] PRN Chloraseptic Menthol 1.4% topical spray, 1 [place], Oral, Q2H, PRN cloNIDine, 0.1 mg= 1 [...] Daily fluticasone 50 mcg/inh nasal spray, 2 [place], Nostrils Both, BID, PRN gabapentin, 300 mg= [...]
--- OUTSIDE RECORDS SUMMARY | 2024-08-30 07:34 | XMS_ITS | Encounter Summary ---
Author Organization [employer] ([place], [place], [place], [place]) Address [address] [place] [address] Care Team Providers Care Lumber Stacker Name Role Phone Unavailable Primary Care Provider Unavailabl e Encounter Details Date Type Department Care Team (Late st Contact Info) Description 07/10/2019 Transcribed Document [facility] [place] [facility] [place] [address] ProviderMariela MD [address] [place] [address] Social History Tobacco Use Types Packs/Day Years [...] had JUST gotten up to chair with KNIFER UP assist and did not feel she wanted to put any more pressure on my foot pt c/o R ankle pain, NOTED SIGNIFICANT EDEMA Notification : RN(Marisela)/PTx/OTx CORI NELSON, PT - 07/10/2019 15:28 EDT Electronically signed by Chantal [facility] Conversion Horseshoer Cerner at 06/16/2022 8:08 PM CDT documented in this encounter Plan of Treatment Not on file documented as of this encounter Visit Diagnoses Not on filedocumented in this encounter
--- OUTSIDE RECORDS SUMMARY | 2024-08-30 07:34 | XMS_ITS | Encounter Summary ---
Author Organization [employer] ([place], [place], [place], [place]) Address [address] [place] [address] Care Team Providers Care Steam Table Attendant Name Role Phone Unavailable Primary Care Provider Unavailabl e Encounter Details Date Type Department Care Team (Late st Contact Info) Description 08/26/2018 Transcribed Document [facility] [place] [address] [place] [address] ProviderMariela MD [address] [place], [place] [id number] Social History Tobacco Use Types Packs/Day Years [...]
--- OUTSIDE RECORDS SUMMARY | 2024-08-30 07:34 | XMS_ITS | Encounter Summary ---
Author Organization [employer] ([place], [place], [place], [place]) Address [address] [place] [address] Care Team Providers Care Cook Tortilla Name Role Phone Unavailable Primary Care Provider Unavailabl e Encounter Details Date Type Department Care Team (Late st Contact Info) Description 08/23/2020 Transcribed Document [facility] [place] Medicine [facility] [place] [address] ProviderMariela MD [address] [place] [address] Social History Tobacco Use Types Packs/Day [...] Conversion Note - Mariela ProviderMD - 08/23/2020 9:00 PM CDT Pain [...]
--- OUTSIDE RECORDS SUMMARY | 2024-08-30 07:34 | XMS_ITS | Encounter Summary ---
Author Organization [employer] ([place], [place], [place], [place]) Address [address] [place] [address] Care Team Providers Care Card Folder Name Role Phone Unavailable Primary Care Provider Unavailabl e Encounter Details Date Type Department Care Team (Late st Contact Info) Description 06/26/2019 Transcribed Document [facility] [place] [facility] [place] [address] ProviderMariela MD [address] [place] [address] Social History Tobacco Use Types Packs/Day Years [...] Performed On: 06/26/2019 18:42 EDT by Bibi Gallagher RN Provider Notification Provider Not Notified Reason : Orders exist for treatment of abnormal results Results to Provider Comment : patient wears cpap HS Bibi Gallagher RN - 06/28/2019 6:18 EDT Electronically signed by Maureen Cornejo Conversion Wire Straightening Machine Operator Min at 06/16/2022 8:07 PM CDT documented in this encounter Plan of Treatment Not on file documented as of this encounter Visit Diagnoses Not on filedocumented in this encounter
--- OUTSIDE RECORDS SUMMARY | 2024-08-30 07:34 | XMS_ITS | Encounter Summary ---
Author Organization [employer] ([place], [place], [place], [place]) Address [address] [place] [address] Care Team Providers Care Armature And Rotor Winder Name Role Phone Unavailable Primary Care Provider Unavailabl e Encounter Details Date Type Department Care Team (Late st Contact Info) Description 06/22/2019 Transcribed Document [facility] [place] [facility] [place] [address] ProviderMariela MD [address] [place] [id number] Social History Tobacco Use Types Packs/Day Years [...] Conversion Note - Mariela ProviderMD - 06/22/2019 9:00 AM CDT Pain [...]
--- OUTSIDE RECORDS SUMMARY | 2024-08-30 07:34 | XMS_ITS | Encounter Summary ---
Author Organization [employer] ([place], [place], [place], [place]) Address [address] [place] [address] Care Team Providers Care Home Economics Extension Worker Name Role Phone Unavailable Primary Care Provider Unavailabl e Encounter Details Date Type Department Care Team (Late st Contact Info) Description 06/26/2019 Transcribed Document [facility] [place] [facility] [place] [address] ProviderMariela MD [address] [place], [place] [id number] Social History Tobacco Use Types Packs/Day Years [...] Conversion Note - Mariela Gates MD - 06/26/2019 11:07 AM CDT Patient Education [...] To Walk With a Standard Walker: 1. pickup driver your walker. Do not slide your standard [...] 02/15/2006 Document Revised: 07/15/2016 Document Reviewed: 08/30/2015 [employer] Interactive Patient Education ? 2019 [employer] What to expect after the Procedure: [...] or 4 frozen water bottles in the [facility]. ?? Contact a health care provider if: [...] Barley. Bulgur wheat. Millet. Bran muffins. Popcorn. [place] wafer crackers. ?? Vegetables Sweet potatoes. Spinach. Kale. Artichokes. Cabbage. Broccoli. Green peas. Carrots. Squash. ?? Fruits Berries. Pears. Apples. Oranges. Avocados. Prunes and raisins. Dried figs. ?? Meats and Other Protein Sources [place], kidney, call, and soy beans. Split peas. [...] gray has 11 g of protein. ?? Emmalena seeds ??? 1 oz has 5.5 g [...] floor. ?? Place frequently used items in cyyl-ur-uqcox places ?? Keep electrical cables out of [...] ? Using the bathroom. ? Using household lime boiler or toxic chemicals. ? Touching or taking [...]
--- OUTSIDE RECORDS SUMMARY | 2024-08-30 07:34 | XMS_ITS | Encounter Summary ---
Author Organization [employer] ([place], [place], [place], [place]) Address [address] [place] [address] Care Team Providers Care Machine Repairer Maintenance Name Role Phone Unavailable Primary Care Provider Unavailabl e Encounter Details Date Type Department Care Team (Late st Contact Info) Description 06/26/2019 Transcribed Document [facility] [place] [address] [place] [address] ProviderMariela MD [address] [place] [address] Social History Tobacco Use Types Packs/Day Years [...]
--- OUTSIDE RECORDS SUMMARY | 2024-08-30 07:34 | XMS_ITS | Encounter Summary ---
Author Organization [employer] ([place], [place], [place], [place]) Address [address] [place] [address] Care Team Providers Care Import Manager Name Role Phone Unavailable Primary Care Provider Unavailabl e Encounter Details Date Type Department Care Team (Late st Contact Info) Description 08/23/2020 Transcribed Document [facility] [place] [address] [place] [address] ProviderMariela MD [address] [place] [address] Social History Tobacco Use [...]
--- OUTSIDE RECORDS SUMMARY | 2024-08-30 07:34 | XMS_ITS | Encounter Summary ---
Author Organization [employer] ([place], [place], [place], [place]) Address [address] [place] [address] Care Team Providers Care Wall Scraper Name Role Phone Unavailable Primary Care Provider Unavailabl e Encounter Details Date Type Department Care Team (Late st Contact Info) Description 06/26/2019 Transcribed Document [facility] [place] Medicine [facility] [place] [address] ProviderMariela MD [facility] [place] [address] Social History Tobacco Use Types [...] PU coccyx per RD nutrition assessment @ [facility]. Previously rec'ing ensure BID; RD to continue [...] Nutrition Supplement Therapy : Commercial beverage Daniella Hutn Dietitian - 06/27/2019 13:50 EDT Monitoring/Evaluation Energy [...] moderate risk Nutrition Care Level : Moderate [place], Daniella, Dietitian - 06/27/2019 13:50 EDT Electronically signed by Maureen Cornejo Conversion Social Media Content Manager Cerner at 06/16/2022 8:08 PM CDT documented in this encounter Plan of Treatment Not on file documented as of this encounter Visit Diagnoses Not on filedocumented in this encounter
--- OUTSIDE RECORDS SUMMARY | 2024-08-30 07:34 | XMS_ITS | Encounter Summary ---
Author Organization [employer] ([place], [place], [place], [place]) Address [address] [place] [address] Care Team Providers Care Refrigerator Assembler Name Role Phone Unavailable Primary Care Provider Unavailabl e Encounter Details Date Type Department Care Team (Late st Contact Info) Description 06/22/2019 Transcribed Document [facility] [place] [facility] [address] ProviderMariela MD [address] [place] [address] Social History Tobacco Use Types Packs/Day Years [...] Performed On: 06/22/2019 22:38 EDT by Nemo Macario, RN Intervention Information: acetaminophen Performed by Nicole Nicole, EDDIE on 06/22/2019 21:38:00 EDT acetaminophen,1000mg Oral Pain Assessment Pain Assessment : Follow-up assessment Pain Scale Goal : 3 Pain Comment : pt appears to be asleep Nemo Macario, RN - 06/22/2019 23:02 EDT documented in this encounter Plan of Treatment Not on file documented as of this encounter Visit Diagnoses Not on filedocumented in this encounter
--- OUTSIDE RECORDS SUMMARY | 2024-08-30 07:34 | XMS_ITS | Encounter Summary ---
Author Organization [employer] ([place], [place], [place], [place]) Address [address] [place] [address] Care Team Providers Care Audio Visual Design Engineer Name Role Phone Unavailable Primary Care Provider Unavailabl e Encounter Details Date Type Department Care Team (Late st Contact Info) Description 08/23/2020 Transcribed Document [facility] [place] Family Medicine [facility] [place] [address] ProviderMariela MD [address] [place] [address] Social History Tobacco Use Types Packs/Day [...] Conversion Note - Mariela Gates MD - 08/23/2020 2:51 PM CDT Patient: SOFIA [...] EDT Chloraseptic Menthol 1.4% topical spray: 5 [place], Oral, [place], Q2H, PRN for Sore Throat, Routine, Start [...] EDT fluticasone 50 mcg/inh nasal spray: 2 [place], Nostrils Both, [place], BID, PRN for Allergies, Routine, Start 08/20/20 [...] Refill(s) fluticasone 50 mcg/inh nasal spray: 2 [place], Nostrils Both, [place], BID, PRN Allergies, 0 Refill(s) furosemide 40 [...] Oral, Daily fluticasone 0.05% nasal spray 2 [place], Nostrils Both, BID magnesium hydroxide 8% liq [...] Oral, Q4H phenol 1.4% throat spray 5 [place], Oral, Q2H promethazine 25 mg tab 12.5 [...]
--- OUTSIDE RECORDS SUMMARY | 2024-08-30 07:34 | XMS_ITS | Encounter Summary ---
Author Organization [employer] ([place], [place], [place], [place]) Address [address] [place] [address] Care Team Providers Care Dry Lumber Grader Name Role Phone Unavailable Primary Care Provider Unavailabl e Encounter Details Date Type Department Care Team (Late st Contact Info) Description 07/19/2019 Transcribed Document [facility] [place] [facility] [place] [address] ProviderMariela MD [address] [place] [address] Social History Tobacco Use Types [...] Daniella Hunt Dietitian - 07/19/2019 9:17 EDT documented in this encounter Plan of Treatment Not on file documented as of this encounter Visit Diagnoses Not on filedocumented in this encounter
--- OUTSIDE RECORDS SUMMARY | 2024-08-30 07:34 | XMS_ITS | Encounter Summary ---
Author Organization [employer] ([place], [place], [place], [place]) Address [address] [place] [address] Care Team Providers Care Global Manager Name Role Phone Unavailable Primary Care Provider Unavailabl e Encounter Details Date Type Department Care Team (Late st Contact Info) Description 07/19/2019 Transcribed Document [facility] [place] Family Medicine [address] [place] [address] ProviderMariela MD [address] [place] [address] Social History Tobacco Use Types [...] All Active Orders Reviewed : Yes Kena Ling RN - 07/19/2019 6:35 EDT documented in this encounter Plan of Treatment Not on file documented as of this encounter Visit Diagnoses Not on filedocumented in this encounter
--- OUTSIDE RECORDS SUMMARY | 2024-08-30 07:34 | XMS_ITS | Encounter Summary ---
Author Organization [employer] ([place], [place], [place], [place]) Address [address] [place] [address] Care Team Providers Care Crowning Inspector Name Role Phone Unavailable Primary Care Provider Unavailabl e Encounter Details Date Type Department Care Team (Late st Contact Info) Description 08/23/2020 Transcribed Document [facility] [place] Family Medicine [address] [place] [address] ProviderMariela MD [address] [place] [address] Social History Tobacco Use Types [...] Vidhi Bailey RN - 08/23/2020 18:54 EDT Electronically signed by Chantal [place] Conversion Sawing And Assembly Supervisor Min at 06/16/2022 8:26 PM CDT documented in this encounter Plan of Treatment Not on file documented as of this encounter Visit Diagnoses Not on filedocumented in this encounter
--- OUTSIDE RECORDS SUMMARY | 2024-08-30 07:35 | XMS_ITS | Encounter Summary ---
Author Organization [employer] ([place], [place], [place], [place]) Address [address] [place] [address] Care Team Providers Care Rooms Director Name Role Phone Unavailable Primary Care Provider Unavailabl e Encounter Details Date Type Department Care Team (Late st Contact Info) Description 06/22/2019 Transcribed Document [facility] [place] Family Medicine [facility] [place] [address] ProviderMariela MD [address] [place] [address] Social History Tobacco Use Types Packs/Day [...] Conversion Note - Mariela ProviderMD - 06/22/2019 5:36 PM CDT Patient: [...] (JUN 18) L 2.0 (JUN 16) Micro: [facility]: 06/15 [facility] Blood cultures positive for group B strep and 2/2 bottles [facility]: 06/16 fluid aspiration of left knee shows 118,150 white blood cells, [facility] 06/16 repeat blood cultures with Group B Strep 06/16 MRSA surveillance culture and pro/pending 06/16 Urine culture in process/pending Rad: Radiology Results (Last 48 hours) [id number] -- 06/16/2019 21:08 CR Chest 1 Vw [...]
--- OUTSIDE RECORDS SUMMARY | 2024-08-30 07:35 | XMS_ITS | Encounter Summary ---
Author Organization [employer] ([place], [place], [place], [place]) Address [address] [place] [address] Care Team Providers Care Pelletizer Name Role Phone Unavailable Primary Care Provider Unavailabl e Encounter Details Date Type Department Care Team (Late st Contact Info) Description 08/28/2018 Transcribed Document [facility] [place] [facility] [place] [address] ProviderMariela MD [address] [place] [address] Social History Tobacco Use Types [...] 04:29:00 EDT 30.3 % LOW 34.1-44.9 Y Electronically signed by Chantal, [facility] Conversion Anthropological Linguist Cerner at 06/16/2022 8:18 PM CDT documented in this encounter Plan of Treatment Not on file documented as of this encounter Visit Diagnoses Not on filedocumented in this encounter
--- OUTSIDE RECORDS SUMMARY | 2024-08-30 07:35 | XMS_ITS | Encounter Summary ---
Author Organization [employer] ([place], [place], [place], [place]) Address [address] [place] [address] Care Team Providers Care Systems Mechanic Name Role Phone Unavailable Primary Care Provider Unavailabl e Encounter Details Date Type Department Care Team (Late st Contact Info) Description 06/23/2019 Transcribed Document [facility] [place] Medicine [facility] [place] [address] ProviderMariela MD [address] [place] [address] Social History Tobacco Use Types Packs/Day [...] Cerner Conversion Note - Mariela ProviderMD - 06/23/2019 8:25 AM CDT Pain [...] form. Electronically signed by Maureen Cornejo Conversion Student Career Development Specialist Cerner at 06/16/2022 8:26 PM CDT documented in this encounter Plan of Treatment Not on file documented as of this encounter Visit Diagnoses Not on filedocumented in this encounter
--- OUTSIDE RECORDS SUMMARY | 2024-08-30 07:35 | XMS_ITS | Encounter Summary ---
Author Organization [employer] ([place], [place], [place], [place]) Address [address] [place] [address] Care Team Providers Care Bus Aide Name Role Phone Unavailable Primary Care Provider Unavailabl e Encounter Details Date Type Department Care Team (Late st Contact Info) Description 08/21/2020 Transcribed Document [facility] [place] [facility] [place] [address] ProviderMariela MD [address] [place] [address] Social History Tobacco Use Types [...] Conversion Note - Mariela ProviderMD - 08/21/2020 1:00 PM CDT Pain [...]
--- OUTSIDE RECORDS SUMMARY | 2024-08-30 07:35 | XMS_ITS | Encounter Summary ---
Author Organization [employer] ([place], [place], [place], [place]) Address [address] [place] [address] Care Team Providers Care Tape Making Machine Operator Name Role Phone Unavailable Primary Care Provider Unavailabl e Encounter Details Date Type Department Care Team (Late st Contact Info) Description 08/28/2018 Transcribed Document [facility] [place] Family Medicine [address] [place] [address] ProviderMariela MD [address] [place] [address] Social History Tobacco Use Types Packs/Day Years [...]
--- OUTSIDE RECORDS SUMMARY | 2024-08-30 07:35 | XMS_ITS | Encounter Summary ---
Author Organization [employer] ([place], [place], [place], [place]) Address [address] [place] [address] Care Team Providers Care Tissue Packer Name Role Phone Unavailable Primary Care Provider Unavailabl e Encounter Details Date Type Department Care Team (Late st Contact Info) Description 06/23/[address] [facility] [place] [facility] [place] [address] ProviderMariela MD [address] [place] [address] Social History Tobacco Use Types Packs/Day Years [...] Historical ProviderMD - 06/23/2019 2:00 AM CDT Heating And Ventilating Drafter Details Entered On: 06/23/2019 0:52 EDT Performed [...] Nemo Macario, RN - 06/23/2019 0:52 EDT Electronically signed by Chantal [facility] Conversion Promotion Writer Cerner at 06/16/2022 8:12 PM CDT documented in this encounter Plan of Treatment Not on file documented as of this encounter Visit Diagnoses Not on filedocumented in this encounter
--- OUTSIDE RECORDS SUMMARY | 2024-08-30 07:35 | XMS_ITS | Encounter Summary ---
Author Organization [employer] ([place], [place], [place], [place]) Address [address] [place] [address] Care Team Providers Care Ticket Agent Name Role Phone Unavailable Primary Care Provider Unavailabl e Encounter Details Date Type Department Care Team (Late st Contact Info) Description 08/21/2020 Transcribed Document [facility] [place] Family [facility] [place] [address] ProviderMariela MD [address] [place] [address] Social History Tobacco Use Types [...] Policy Numbers : Insurance 1 Health Plan: [facility] MEDICARE ADVANTAGE Policy Number: [id number] Authorization Number: [id number] Insurance Primary Name : [facility] MEDICARE ADVANTAGE Policy Number: [id number] Authorization Status-Primary : Admit approved Reference Number-Primary : [id number] Authorization Number-Primary : [id number] Number of Days Authorized-Primary : 0 Day(s) Authorized Service Begin Date-Primary : 08/20/2020 EDT Authorized Service End Date-Primary : 08/20/2020 EDT Historical Authorization Comments-Primary : Comment 1: Note on [facility] website:Patient was initially scheduled for [...] AQUINO, RN-Utilization Review 08/19/2020 15:20) Comment 2: [facility] Medicare approved per website for 1 day (TIESHA AQUINO RN-Utilization Review 08/19/2020 15:14) KARAN WATSON RN-Utilization Review - 08/21/2020 7:50 EDT documented in this encounter Plan of Treatment Not on file documented as of this encounter Visit Diagnoses Not on filedocumented in this encounter
--- OUTSIDE RECORDS SUMMARY | 2024-08-30 07:35 | XMS_ITS | Encounter Summary ---
Author Organization [employer] ([place], [place], [place], [place]) Address [address] [place] [address] Care Team Providers Care Disability Rater Name Role Phone Unavailable Primary Care Provider Unavailabl e Encounter Details Date Type Department Care Team (Late st Contact Info) Description 08/27/2018 Transcribed Document [facility] [place] [facility] [place] [address] ProviderMariela MD [address] [place] [address] Social History Tobacco Use Types [...] Conversion Note - Mariela ProviderMD - 08/27/2018 11:53 PM CDT Patient: [...] for 45 days Disposition:Plan for transition to [facility] when ok with ortho Discussed with patient and time spent with above 25 minutes. VTE Prophylaxis - Medical Sequential Compression Device Start: 08/22/18 12:12:00 EDT, Bilateral, Length: Knee High, Continuous Order (NIMO EPPS) Ortho asked to keep her today with leg not wrapped and plan to be discharged to the [facility] tomorrow. Medications Benadryl, 25 mg= 1 Tab, [...] Level 8.4 mg/dL (Low) 08/27/2018 04:03 EDT documented in this encounter Plan of Treatment Not on file documented as of this encounter Visit Diagnoses Not on filedocumented in this encounter
--- OUTSIDE RECORDS SUMMARY | 2024-08-30 07:35 | XMS_ITS | Encounter Summary ---
Author Organization [employer] ([place], [place], [place], [place]) Address [address] [place] [address] Care Team Providers Care Regional Retail Sales Manager Name Role Phone Unavailable Primary Care Provider Unavailabl e Encounter Details Date Type Department Care Team (Late st Contact Info) Description 07/06/2019 Transcribed Document [facility] [place] [address] [place] [address] ProviderMariela MD [address] [place], [place] [id number] Social History Tobacco Use Types Packs/Day Years [...] Bibi Gallagher RN - 07/06/2019 3:14 EDT Electronically signed by Chantal [facility] Conversion Interstate Bus Dispatcher Min at 06/16/2022 8:23 PM CDT documented in this encounter Plan of Treatment Not on file documented as of this encounter Visit Diagnoses Not on filedocumented in this encounter
--- OUTSIDE RECORDS SUMMARY | 2024-08-30 07:35 | XMS_ITS | Encounter Summary ---
Author Organization [employer] ([place], [place], [place], [place]) Address [address] [place] [address] Care Team Providers Care Local Area Network Systems Adminstrator Name Role Phone Unavailable Primary Care Provider Unavailabl e Encounter Details Date Type Department Care Team (Late st Contact Info) Description 07/06/2019 Transcribed Document [facility] Radiology [address] [place] [address] Jordan Barahona MD [address] [place] [id number] Social History Tobacco Use Types Packs/Day Years [...] Last Charted Minimum Maximum Temp 97.9 (JULY 05:00) 97.9 (JULY 05:00) 98.8 (JULY 04:) Mon HR 96 (JULY 05:00) 95 (JULY 04 23:00) 97 (JULY 04:) Resp Rate 14 (JULY 05:00) 14 (JULY 05:00) 17 (JULY 04:) SBP 104 (JULY 05:00) 104 (JULY 05:00) H 158 (JULY 04:) DBP L 47 (JULY 05:) L 47 (JULY 05:00) 65 (JULY 04:) MAP 62 (JULY 05:) 62 (JULY 05:00) 62 (JULY 05:) SpO2 100 (JULY 05:00) 100 (JULY 04:) 100 (JULY 04:) Physical Examination: Gen: Alert, [...] (JULY 02) L 2.4 (JUN 26) Micro: [facility]: 06/15 [facility] Blood cultures positive for group [...]
--- OUTSIDE RECORDS SUMMARY | 2024-08-30 07:35 | XMS_ITS | Encounter Summary ---
Author Organization [employer] ([place], [place], [place], [place]) Address [address] [place] [address] Care Team Providers Care Ase Master Mechanic Name Role Phone Unavailable Primary Care Provider Unavailabl e Encounter Details Date Type Department Care Team (Late st Contact Info) Description 08/22/2020 Transcribed Document [facility] [place] [facility] [place] [address] ProviderMariela MD [address] [place] [address] Social History Tobacco Use Types Packs/Day [...] Note - Mariela ProviderMD - 08/22/2020 10:00 AM CDT Pain [...]
--- OUTSIDE RECORDS SUMMARY | 2024-08-30 07:35 | XMS_ITS | Encounter Summary ---
Author Organization [employer] ([place], [place], [place], [place]) Address [address] [place] [address] Care Team Providers Care Golf Course Patroller Name Role Phone Unavailable Primary Care Provider Unavailabl e Encounter Details Date Type Department Care Team (Late st Contact Info) Description 07/06/2019 Transcribed Document [facility] [place] [facility] [place] [address] ProviderMariela MD [address] [place] [address] Social History Tobacco Use Types Packs/Day Years [...] Historical ProviderMD - 07/06/2019 2:00 AM CDT Rehab Consultant Details Entered On: 07/06/2019 3:12 EDT Performed On: 07/06/2019 2:00 EDT by Bibi Gallagher RN Order [...] - 07/06/2019 3:09 EDT Electronically signed by Chantal [facility] Conversion Clinical Psychologist Cerner at 06/16/2022 8:29 PM CDT documented in this encounter Plan of Treatment Not on file documented as of this encounter Visit Diagnoses Not on filedocumented in this encounter
--- OUTSIDE RECORDS SUMMARY | 2024-08-30 07:35 | XMS_ITS | Encounter Summary ---
Author Organization [employer] ([place], [place], [place], [place]) Address [address] [place] [address] Care Team Providers Care Endoscopy Tech Name Role Phone Unavailable Primary Care Provider Unavailabl e Encounter Details Date Type Department Care Team (Late st Contact Info) Description 07/18/2019 Transcribed Document [facility] [place] [address] [place] [address] ProviderMariela MD [address] [place], [place] [id number] Social History Tobacco Use Types Packs/Day Years [...]
--- OUTSIDE RECORDS SUMMARY | 2024-08-30 07:35 | XMS_ITS | Encounter Summary ---
Author Organization [employer] ([place], [place], [place], [place]) Address [address] [place] [address] Care Team Providers Care Baker Operator Automatic Name Role Phone Unavailable Primary Care Provider Unavailabl e Encounter Details Date Type Department Care Team (Late st Contact Info) Description 08/24/2020 Transcribed Document [facility] [place] [facility] [address] ProviderMariela MD [address] [place] [address] Social History Tobacco Use Types Packs/Day [...] Conversion Note - Mariela Gates MD - 08/24/2020 1:15 PM CDT Patient: SOFIA [...] EDT Chloraseptic Menthol 1.4% topical spray: 5 [place], Oral, [place], Q2H, PRN for Sore Throat, Routine, Start [...] EDT fluticasone 50 mcg/inh nasal spray: 2 [place], Nostrils Both, [place], BID, PRN for Allergies, Routine, Start 08/20/20 [...] Refill(s) fluticasone 50 mcg/inh nasal spray: 2 [place], Nostrils Both, [place], BID, PRN Allergies, 0 Refill(s) furosemide 40 [...] Oral, Daily fluticasone 0.05% nasal spray 2 [place], Nostrils Both, BID magnesium hydroxide 8% liq [...] Oral, Q4H phenol 1.4% throat spray 5 [place], Oral, Q2H senna 8.6 mg tab 8.6 [...] % 24.3 % Lymph # 2.40 K/uL [place] % 11.0 % Rich # 1.09 K/uL [place] Eos % 4.0 [...] monitoring renal function. Pending insurance approval for rehab/assisted facility. documented in this encounter Plan of Treatment Not on file documented as of this encounter Visit Diagnoses Not on filedocumented in this encounter
--- OUTSIDE RECORDS SUMMARY | 2024-08-30 07:35 | XMS_ITS | Encounter Summary ---
Author Organization [employer] ([place], [place], [place], [place]) Address [address] [place] [address] Care Team Providers Care Hematology Technician Name Role Phone Unavailable Primary Care Provider Unavailabl e Encounter Details Date Type Department Care Team (Late st Contact Info) Description 07/18/2019 Transcribed Document [facility] [place] [facility] [place] [address] ProviderMariela MD [address] [place] [phone] Social History Tobacco Use Types Packs/Day Years [...] Conversion Note - Mariela Gates MD - 07/18/2019 5:22 PM CDT Patient: SOFIA [...] Dr. Saenz office ???Scheduled to go to fpc facility in a.m. Review of Systems Constitutional: [...] 0.9% 100 mL 2 Gram, IV Piggyback, [id number] cyanocobalamin 1,000 mcg tab 5,000 mcg 5 [...] Oral, Q4H fluticasone 0.05% nasal spray 2 [place], Nostrils Both, BID magnesium hydroxide 8% liq [...] % 21.2 % Lymph # 1.73 x10(3)/uL [place] % 9.7 % HI [place] # 0.79 K/uL Eos % 5.8 % [...] antibiotics as recommended by infectious disease. For fpc facility in a.m. to continue her care. documented in this encounter Plan of Treatment Not on file documented as of this encounter Visit Diagnoses Not on filedocumented in this encounter
--- OUTSIDE RECORDS SUMMARY | 2024-08-30 07:35 | XMS_ITS | Encounter Summary ---
Author Organization [employer] ([place], [place], [place], [place]) Address [address] [place] [address] Care Team Providers Care And Drying Supervisor Cooking Casing Name Role Phone Unavailable Primary Care Provider Unavailabl e Encounter Details Date Type Department Care Team (Late st Contact Info) Description 06/22/2019 Transcribed Document [facility] [place] [address] ProviderMariela MD [address] [place] [phone] Social History Tobacco Use Types Packs/Day Years [...] Conversion Note - Mariela ProviderMD - 06/22/2019 3:00 PM CDT Pain [...]
--- OUTSIDE RECORDS SUMMARY | 2024-08-30 07:35 | XMS_ITS | Encounter Summary ---
Author Organization [employer] ([place], [place], [place], [place]) Address [address] [place] [address] Care Team Providers Care Public Transit Bus Driver Name Role Phone Unavailable Primary Care Provider Unavailabl e Encounter Details Date Type Department Care Team (Late st Contact Info) Description 07/07/2019 Transcribed Document [facility] [place] Medicine [facility] [place] [address] ProviderMariela MD [address] [place] [address] Social History Tobacco Use Types Packs/Day Years [...]
--- OUTSIDE RECORDS SUMMARY | 2024-08-30 07:35 | XMS_ITS | Encounter Summary ---
Author Organization [employer] ([place], [place], [place], [place]) Address [address] [place] [address] Care Team Providers Care Weatherization Crew Leader Name Role Phone Unavailable Primary Care Provider Unavailabl e Encounter Details Date Type Department Care Team (Late st Contact Info) Description 08/21/2020 Transcribed Document [facility] [place] Family Medicine [facility] [place] [address] ProviderMariela MD [address] [place] [address] Social History Tobacco Use Types [...] Conversion Note - Mariela Gates MD - 08/21/2020 4:30 PM CDT Patient: SOFIA [...] nausea vomiting ???Hypotensive ???Needs to go to longterm facility on discharge and when stable Review [...] EDT Chloraseptic Menthol 1.4% topical spray: 5 [place], Oral, [place], Q2H, PRN for Sore Throat, Routine, Start [...] EDT fluticasone 50 mcg/inh nasal spray: 2 [place], Nostrils Both, [place], BID, PRN for Allergies, Routine, Start 08/20/20 [...] Refill(s) fluticasone 50 mcg/inh nasal spray: 2 [place], Nostrils Both, [place], BID, PRN Allergies, 0 Refill(s) furosemide 40 [...] Oral, Daily fluticasone 0.05% nasal spray 2 [place], Nostrils Both, BID magnesium hydroxide 8% liq [...] Oral, Q4H phenol 1.4% throat spray 5 [place], Oral, Q2H promethazine 25 mg tab 12.5 [...] and urine output. Case management for rehabilitation referral/longterm facility. Electronically signed by Maureen Cornejo Conversion Healthcare Market Consultant Cerner at 06/16/2022 8:29 PM CDT documented in this encounter Plan of Treatment Not on file documented as of this encounter Visit Diagnoses Not on filedocumented in this encounter
--- OUTSIDE RECORDS SUMMARY | 2024-08-30 07:35 | XMS_ITS | Encounter Summary ---
Author Organization [employer] ([place], [place], [place], [place]) Address [address] [place] [address] Care Team Providers Care Wheel Press Clerk Name Role Phone Unavailable Primary Care Provider Unavailabl e Encounter Details Date Type Department Care Team (Late st Contact Info) Description 08/29/2018 Transcribed Document [facility] [place] Medicine [facility] [address] ProviderMariela MD [address] [place] [address] Social History Tobacco Use Types Packs/Day [...] Conversion Note - Mariela ProviderMD - 08/29/2018 1:41 PM CDT Patient: SOFIA GILL Age: 78 Years Sex: Female : 1940 Admit Date 08/22/2018 07:12 Discharge Date 08/29/18 Primary Care Provider NILA CHO, [facility] Discharge Diagnosis Status post total right [...] incision uncovered if it is completely dry. [place] out 2 weeks post op. 6) An [...] Home with Home Care Discharge Follow Up [facility]opedic - SOLOMON MCCRACKEN PA-C - 09/08/2018 [...] 1-Time fluticasone 50 mcg/inh nasal spray 2 [place], PRN, Nostrils Both, BID gabapentin 300 mg [...] Collect Time Spent on Discharge 30 min documented in this encounter Plan of Treatment Not on file documented as of this encounter Visit Diagnoses Not on filedocumented in this encounter
--- OUTSIDE RECORDS SUMMARY | 2024-08-30 07:35 | XMS_ITS | Encounter Summary ---
Author Organization [employer] ([place], [place], [place], [place]) Address [address] [place] [address] Care Team Providers Care Medical File Clerk Name Role Phone Unavailable Primary Care Provider Unavailabl e Encounter Details Date Type Department Care Team (Late st Contact Info) Description 06/23/2019 Transcribed Document [facility] [place] [address] [place] [address] ProviderMariela MD [address] [place], [place] [phone] Social History Tobacco Use Types Packs/Day Years [...] 06/23/2019 18:48 EDT Electronically signed by Chantal [facility] Conversion Ct Mri Technologist Min at 06/16/2022 8:14 PM CDT documented in this encounter Plan of Treatment Not on file documented as of this encounter Visit Diagnoses Not on filedocumented in this encounter
--- OUTSIDE RECORDS SUMMARY | 2024-08-30 07:35 | XMS_ITS | Encounter Summary ---
Author Organization [employer] ([place], [place], [place], [place]) Address [address] [place] [address] Care Team Providers Care Riprap Placing Supervisor Name Role Phone Unavailable Primary Care Provider Unavailabl e Encounter Details Date Type Department Care Team (Late st Contact Info) Description 06/23/2019 Transcribed Document [facility] [place] Family Medicine [address] [place] [address] ProviderMariela MD [address] [place], [place] [phone] Social History Tobacco Use Types Packs/Day Years [...] All Active Orders Reviewed : Yes Nemo Macario RN - 06/23/2019 4:17 EDT documented in this encounter Plan of Treatment Not on file documented as of this encounter Visit Diagnoses Not on filedocumented in this encounter
--- OUTSIDE RECORDS SUMMARY | 2024-08-30 07:35 | XMS_ITS | Encounter Summary ---
Author Organization [employer] ([place], [place], [place], [place]) Address [address] [place] [address] Care Team Providers Care Drug Abuse Resistance Education Officer Name Role Phone Unavailable Primary Care Provider Unavailabl e Encounter Details Date Type Department Care Team (Late st Contact Info) Description 07/18/2019 Transcribed Document [facility] [place] [address] [place] [address] ProviderMariela MD [address] [place] [address] Social History Tobacco Use Types Packs/Day Years [...] indomethacin Performed by Kena Ling, RN on 07/18/2019 20:45:00 EDT indomethacin,25mg Oral Pain Assessment Pain Assessment : Follow-up assessment Pain Scale Goal : 3 Kena Ling RN - 07/19/2019 2:01 EDT documented in this encounter Plan of Treatment Not on file documented as of this encounter Visit Diagnoses Not on filedocumented in this encounter
--- OUTSIDE RECORDS SUMMARY | 2024-08-30 07:35 | XMS_ITS | Encounter Summary ---
Author Organization [employer] ([place], [place], [place], [place]) Address [address] [place] [address] Care Team Providers Care Dance Entertainer Name Role Phone Unavailable Primary Care Provider Unavailabl e Encounter Details Date Type Department Care Team (Late st Contact Info) Description 07/06/2019 Transcribed Document [facility] [place] [facility] [place] [address] ProviderMariela MD [address] [place] [phone] Social History Tobacco Use Types Packs/Day Years [...] Conversion Note - Mariela Gates MD - 07/06/2019 7:51 PM CDT Patient: SOFIA GILL Age: 79 [...] 0.9% 50 mL 2 Gram, IV Piggyback, [id number] cyanocobalamin 1,000 mcg tab 5,000 mcg 5 [...] fluticasone 0.05% nasal spray 100 mcg 2 [place], Nostrils Both, BID magnesium hydroxide 8% liq [...] % 23.0 % Lymph # 1.50 x10(3)/uL [place] % 12.3 % HI [place] # 0.80 K/uL Eos % 3.7 % [...] 1-Time, Stop: 07/07/19 4:00:00 EDT, Nurse Collect. Electronically signed by Maureen Cornejo Conversion Film Processing Utility Worker Cerner at 06/16/2022 8:21 PM CDT documented in this encounter Plan of Treatment Not on file documented as of this encounter Visit Diagnoses Not on filedocumented in this encounter
--- OUTSIDE RECORDS SUMMARY | 2024-08-30 07:35 | XMS_ITS | Encounter Summary ---
Author Organization [employer] ([place], [place], [place], [place]) Address [address] [place] [address] Care Team Providers Care Commercial Counsel Name Role Phone Unavailable Primary Care Provider Unavailabl e Encounter Details Date Type Department Care Team (Late st Contact Info) Description 08/22/2020 Transcribed Document [facility] [place] [facility] [place] [address] ProviderMariela MD [address] [place] [address] Social History Tobacco Use [...] Conversion Note - Mariela ProviderMD - 08/22/2020 4:00 AM CDT Pain [...]
--- OUTSIDE RECORDS SUMMARY | 2024-08-30 07:35 | XMS_ITS | Encounter Summary ---
Author Organization [employer] ([place], [place], [place], [place]) Address [address] [place] [address] Care Team Providers Care Forest Ranger Technician Name Role Phone Unavailable Primary Care Provider Unavailabl e Encounter Details Date Type Department Care Team (Late st Contact Info) Description 06/23/2019 Transcribed Document [facility] [place] [facility] [place] [address] ProviderMariela MD [address] [place], [place] [phone] Social History Tobacco Use Types Packs/Day Years [...] Saenz about X ray results. Vidhi Bailey, EDDIE - 06/23/2019 15:04 EDT documented in this encounter Plan of Treatment Not on file documented as of this encounter Visit Diagnoses Not on filedocumented in this encounter
--- OUTSIDE RECORDS SUMMARY | 2024-08-30 07:35 | XMS_ITS | Encounter Summary ---
Author Organization [employer] ([place], [place], [place], [place]) Address [address] [place] [address] Care Team Providers Care Roadside Mechanic Name Role Phone Unavailable Primary Care Provider Unavailabl e Encounter Details Date Type Department Care Team (Late st Contact Info) Description 06/22/2019 Transcribed Document [facility] [place] [place] [address] ProviderMariela MD [place] [address] Social History Tobacco Use Types [...]
--- OUTSIDE RECORDS SUMMARY | 2024-08-30 07:35 | XMS_ITS | Encounter Summary ---
Author Organization [employer] ([place], [place], [place], [place]) Address [address] [place] [address] Care Team Providers Care Mechanical Ordnance Assembler Name Role Phone Unavailable Primary Care Provider Unavailabl e Encounter Details Date Type Department Care Team (Late st Contact Info) Description 08/27/2018 Transcribed Document [facility] [place] Family Medicine [facility] [place] [address] ProviderMariela MD [address] [place] [address] Social History Tobacco Use Types Packs/Day Years [...] Conversion Note - Mariela ProviderMD - 08/27/2018 9:00 AM CDT Pain [...]
--- OUTSIDE RECORDS SUMMARY | 2024-08-30 07:35 | XMS_ITS | Encounter Summary ---
Author Organization [employer] ([place], [place], [place], [place]) Address [address] [place] [address] Care Team Providers Care District Manager Major Accounts Sales Name Role Phone Unavailable Primary Care Provider Unavailabl e Encounter Details Date Type Department Care Team (Late st Contact Info) Description 08/29/2018 Transcribed Document [facility] [place] Family Medicine [facility] [place] [address] ProviderMariela MD [address] [place] [address] Social History Tobacco Use Types Packs/Day Years [...] Historical ProviderMD - 08/29/2018 2:00 AM CDT Drywall Application Supervisor Details Entered On: 08/29/2018 5:50 EDT Performed [...] Mily Dickinson Rn - 08/29/2018 5:49 EDT Electronically signed by Chantal [facility] Conversion Materials Coordinator Cerner at 06/16/2022 8:17 PM CDT documented in this encounter Plan of Treatment Not on file documented as of this encounter Visit Diagnoses Not on filedocumented in this encounter
--- OUTSIDE RECORDS SUMMARY | 2024-08-30 07:35 | XMS_ITS | Encounter Summary ---
Author Organization [employer] ([place], [place], [place]) Address [address] [place] [address] Care Team Providers Care Regional Director Of Finance Name Role Phone Unavailable Primary Care Provider Unavailabl e Encounter Details Date Type Department Care Team (Late st Contact Info) Description 08/29/2018 Transcribed Document [facility] [place] [facility] [place] [address] ProviderMariela MD [address] [place] [address] Social History Tobacco Use Types Packs/Day [...] Conversion Note - Mariela ProviderMD - 08/29/2018 3:58 PM CDT On Going Discharge Planning Entered On: 08/29/2018 15:58 EDT Performed On: 08/29/2018 15:58 EDT by MARY MCGRAW Care Management-Corporate Staff Accountant Care Management Progress Note Discharge Arrangements : Patient Post-Acute Information Patient Name: SOFIA BARLOW Gender: Female : [birth year] Age: 78 Years No Post-Acute Placement(s) Listed No Post-Acute Service(s) Listed No [place] Referral(s) Listed Discharge Options Discussed with Patient : Home Health, Short term rehabilitation Barriers to Discharge Unresolved : All resolved MARY MCGRAW Care Management-Corporate Staff Accountant - 08/29/2018 15:58 EDT documented in this encounter Plan of Treatment Not on file documented as of this encounter Visit Diagnoses Not on filedocumented in this encounter
--- OUTSIDE RECORDS SUMMARY | 2024-08-30 07:35 | XMS_ITS | Encounter Summary ---
Author Organization [employer] ([place], [place], [place], [place]) Address [address] [place] [address] Care Team Providers Care Preschool Assistant Principal Name Role Phone Unavailable Primary Care Provider Unavailabl e Encounter Details Date Type Department Care Team (Late st Contact Info) Description 06/23/2019 Transcribed Document [facility] [place] Family Medicine [facility] [place] [address] ProviderMariela MD [address] [place] [phone] Social History Tobacco Use Types Packs/Day Years [...] Conversion Note - Mariela ProviderMD - 06/23/2019 9:00 AM CDT Pain [...]
--- OUTSIDE RECORDS SUMMARY | 2024-08-30 07:35 | XMS_ITS | Encounter Summary ---
Author Organization [employer] ([place], [place], [place], [place]) Address [address] [place] [address] Care Team Providers Care Mixer Driver Name Role Phone Unavailable Primary Care Provider Unavailabl e Encounter Details Date Type Department Care Team (Late st Contact Info) Description 08/24/2020 Transcribed Document [facility] [place] [address] [place] [address] ProviderMariela MD [address] [place] [address] Social History Tobacco Use Types [...] 08/24/2020 5:52 EDT Electronically signed by Chantal [facility] Conversion Sliding Joint Maker Min at 06/16/2022 8:13 PM CDT documented in this encounter Plan of Treatment Not on file documented as of this encounter Visit Diagnoses Not on filedocumented in this encounter
--- OUTSIDE RECORDS SUMMARY | 2024-08-30 07:35 | XMS_ITS | Encounter Summary ---
Author Organization [employer] ([place], [place], [place], [place]) Address [address] [place] [address] Care Team Providers Care Deputy Assessor Name Role Phone Unavailable Primary Care Provider Unavailabl e Encounter Details Date Type Department Care Team (Late st Contact Info) Description 07/17/2019 Transcribed Document [facility] [place] [facility] [place] [address] ProviderMariela MD [address] [place] [address] Social History Tobacco Use Types [...] Conversion Note - Mariela ProviderMD - 07/17/2019 10:31 AM CDT Care Management Assessment/Plan Entered On: 07/17/2019 10:32 EDT Performed On: 07/17/2019 10:31 EDT by СВЕТЛАНА WANG Care Management Note Care Management Note : 07/17/2019 faxed clinical review the [facility] at [phone] to request approval for extended ltac services. Auth#[id number], awaiting approval. CM/Discharge plan attached to review. [...] [facility] round-trip transport scheduled for 1315 pick-up ([id number]). Spoke with Lexy Valdez, they have not yet began the patient's insurance preauth, they will today, and be ready to admit on Wednesday. Dr. Jaffe notified and in agreement. [facility] rescheduled for discharge 07/19/2019 @ 1400 ([id number]). YOANNA ARAUJO RN - 07/14/19 15:41:31 Yoanna Araujo 07/13/2019 1500 - patient has accepted bed offer at [facility], she will be transported on WednesdayJuly 16 at 2pm by [facility] Confirmation # [id number]. She declined the bed offer at [facility]. Jaffe notified of discharge plan. YOANNA ARAUJO RN - 07/13/19 14:37:44 Yoanna Araujo 07/13/2019 1400 received call from Ratna with [facility] offering patient a bed, Received call from Isabelle with [facility] she is looking at patient and needed a current height and weight. Still waiting to see if any other bed offers come through. I also sent referral to [facility]. YOANNA RAAUJO RN - 07/13/19 11:04:03 Yoanna Araujo 07/13/2019 1100 faxed out referral for placement for patient to [facility], [facility] Awaiting call backs. СВЕТЛАНА WANG - 07/12/19 12:19:17 07/12/2019 Fax received from [facility] with approval for LTAC services with a request for updated discharge plans and clinical info to support needs if not discharged. Auth#[id number]. Clinical review or discharge summary to be faxed by 07/17/2019. YOANNA ARAUJO RN - 07/12/19 08:39:48 Yoanna Araujo 07/12/2019 0830 - faxed clinical review the [facility] at [phone] to request approval for extended ltac services. Auth#[id number], awaiting approval. YOANNA ARAUJO RN - 06/29/19 [...] health and she has been to the [place] [facility] and [facility] in the past. She has the following equipment at home: wheel chair, walker, cane and shower chair. Her discharge plan is to go to rehab prior to returning home. PCP: Flavia MARQUEZ [address] [place] [phone] Shop Teacher: Dr. Shemar Barger [address] [facility] [address] [facility] [address] [address] Clemente Del Rio MD - Rheumatology - [address] [place], [place] [phone] Preferences: Home Health: [facility]: no preferences DME: [employer] [facility] - [address], [place] [id number] Alf: [place] [facility] facility: no preferences Will continue to monitor patient for anticipated discharge needs YOANNA ARAUJO RN - 06/29/19 08:30:20 Yoanna Araujo 06/29/2019 0830 received fax from [facility] with approval for extended ltac coverage with next clinical review due on 07/12/2019. Auth#[id number]. Will continue to follow for anticipated discharge needs. YOANNA ARAUJO RN - 06/28/19 08:35:06 Yoanna Araujo 06/28/2019 0830 Faxed clinical review to [facility] at to request approval for extended Ltac services. Auth#[id number]. Pending Approval. Documentation Status Complete : Yes СВЕТЛАНА WANG - 07/17/2019 10:31 EDT documented in this encounter Plan of Treatment Not on file documented as of this encounter Visit Diagnoses Not on filedocumented in this encounter
--- OUTSIDE RECORDS SUMMARY | 2024-08-30 07:35 | XMS_ITS | Encounter Summary ---
Author Organization [employer] ([place], [place], [place], [place]) Address [address] [place] [address] Care Team Providers Care Kiln Stacker Name Role Phone Unavailable Primary Care Provider Unavailabl e Encounter Details Date Type Department Care Team (Late st Contact Info) Description 08/27/2018 Transcribed Document [facility] [place] Family Medicine [facility] [place] [address] ProviderMariela MD [address] [place] [phone] Social History Tobacco Use Types Packs/Day Years [...] Note - Mariela ProviderMD - 08/27/2018 9:00 PM CDT Pain [...]
--- OUTSIDE RECORDS SUMMARY | 2024-08-30 07:35 | XMS_ITS | Encounter Summary ---
Author Organization [employer] ([place], [place], [place], [place]) Address [address] [place] [address] Care Team Providers Care Hotel Maintenance Technician Name Role Phone Unavailable Primary Care Provider Unavailabl e Encounter Details Date Type Department Care Team (Late st Contact Info) Description 08/29/2018 Transcribed Document [facility] [place] [facility] [place] [address] ProviderMariela MD [address] [place] [id number] Social History Tobacco Use Types Packs/Day Years [...] Conversion Note - Mariela Gates MD - 08/29/2018 12:10 PM CDT Nursing Discharge [...] Rosalva Herrera Rn - 08/29/2018 12:10 EDT Electronically signed by Maureen Cornejo Conversion Labor Relations Representative Cerner at 06/16/2022 8:07 PM CDT documented in this encounter Plan of Treatment Not on file documented as of this encounter Visit Diagnoses Not on filedocumented in this encounter
--- OUTSIDE RECORDS SUMMARY | 2024-08-30 07:35 | XMS_ITS | Encounter Summary ---
Author Organization [employer] ([place], [place], [place], [place]) Address [address] [place] [address] Care Team Providers Care Sandblast Or Shotblast Equipment Tender Name Role Phone Unavailable Primary Care Provider Unavailabl e Encounter Details Date Type Department Care Team (Late st Contact Info) Description 08/29/2018 Transcribed Document [facility] [place] [facility] [place] [address] ProviderMariela MD [address] [place] [address] Social History Tobacco Use Types Packs/Day [...] Conversion Note - Mariela ProviderMD - 08/29/2018 8:26 AM CDT On Going Discharge Planning Entered On: 08/29/2018 8:27 EDT Performed On: 08/29/2018 8:26 EDT by MARY MCGRAW Care Management-Soda Maker Care Management Progress Note Discharge Arrangements : [...] Clinical Condition of Patient MARY MCGRAW Care Management-Soda Maker - 08/29/2018 8:26 EDT Narrative Progress Note Narrative Progress Note : updated clinical sent to Trevor Rosas, for precert MARY MCGRAW, Care Management-Soda Maker - 08/29/2018 8:26 EDT Electronically signed by [facility] Conversion Geological Manager Cerner at 06/16/2022 8:09 PM CDT documented in this encounter Plan of Treatment Not on file documented as of this encounter Visit Diagnoses Not on filedocumented in this encounter
--- OUTSIDE RECORDS SUMMARY | 2024-08-30 07:35 | XMS_ITS | Encounter Summary ---
Author Organization [employer] ([place], [place], [place], [place]) Address [address] [place] [address] Care Team Providers Care Quality Control Assessor Name Role Phone Unavailable Primary Care Provider Unavailabl e Encounter Details Date Type Department Care Team (Late st Contact Info) Description 08/29/2018 Transcribed Document [facility] [facility] [place] [address] ProviderMraiela MD [facility] [place] [id number] Social History Tobacco Use Types Packs/Day Years [...] Performed On: 08/29/2018 10:00 EDT by CHAITANYA SIMON PT General Information, [...] due to previous surgeries 3/5 grossly assessed CHAITANYA SIMON, PT - 08/29/2018 11:10 EDT Functional [...] CHAITANYA SIMON, PT - 08/29/2018 11:10 EDT Early Childhood Lead Teacher Goals Other PT LTG Grid Goal #6 [...] allow safe household or facility ambulation upon [facility] care DC. Patient will participate with [...] CHAITANYA SIMON, PT - 08/29/2018 11:10 EDT [place] PT Charges PT Therap. Exercise 15 min : 1 Gait Training Each 15 Min : 1 PT Eval Low Complexity : 1 CHAITANYA SIMON, PT - 08/29/2018 11:10 EDT documented in this encounter Plan of Treatment Not on file documented as of this encounter Visit Diagnoses Not on filedocumented in this encounter
--- OUTSIDE RECORDS SUMMARY | 2024-08-30 07:35 | XMS_ITS | Encounter Summary ---
Author Organization [employer] ([place], [place], [place], [place]) Address [address] [place] [address] Care Team Providers Care Manager Rehab Name Role Phone Unavailable Primary Care Provider Unavailabl e Encounter Details Date Type Department Care Team (Late st Contact Info) Description 07/18/2019 Transcribed Document [facility] [place] [facility] [address] ProviderMariela [place] [address] Social History Tobacco Use [...] HOWIE WETZEL PTA - 07/18/2019 15:10 EDT Electronically signed by Maureen Cornejo Conversion Driver Retraining Instructor Cerner at 06/16/2022 8:10 PM CDT documented in this encounter Plan of Treatment Not on file documented as of this encounter Visit Diagnoses Not on filedocumented in this encounter
--- OUTSIDE RECORDS SUMMARY | 2024-08-30 07:35 | XMS_ITS | Encounter Summary ---
Author Organization [employer] ([place], [place], [place], [place]) Address [address] [place] [address] Care Team Providers Care Circular Distributor Name Role Phone Unavailable Primary Care Provider Unavailabl e Encounter Details Date Type Department Care Team (Late st Contact Info) Description 07/07/2019 Transcribed Document [facility] [place] [address] ProviderMariela MD [address] [place] [address] Social History Tobacco Use Types Packs/Day Years [...] Historical ProviderMD - 07/07/2019 2:00 AM CDT Cycle Specialist Details Entered On: 07/07/2019 0:12 EDT Performed [...] Line : No Georgina Olivo RN - 07/07/2019 0:12 EDT documented in this encounter Plan of Treatment Not on file documented as of this encounter Visit Diagnoses Not on filedocumented in this encounter
--- OUTSIDE RECORDS SUMMARY | 2024-08-30 07:35 | XMS_ITS | Encounter Summary ---
Author Organization [employer] ([place], [place], [place], [place]) Address [address] [place] [address] Care Team Providers Care Nursing Technician Name Role Phone Unavailable Primary Care Provider Unavailabl e Encounter Details Date Type Department Care Team (Late st Contact Info) Description 08/28/2018 Transcribed Document [facility] [place] Family Medicine [address] [place] [address] ProviderMariela MD [address] [place], [place] [phone] Social History Tobacco Use Types Packs/Day Years [...]
--- OUTSIDE RECORDS SUMMARY | 2024-08-30 07:35 | XMS_ITS | Encounter Summary ---
Author Organization [employer] ([place], [place], [place], [place]) Address [address] [place] [address] Care Team Providers Care Marine Extension Agent Name Role Phone Unavailable Primary Care Provider Unavailabl e Encounter Details Date Type Department Care Team (Late st Contact Info) Description 07/06/[address] [facility] [place] [address] [place] [address] ProviderMariela MD [address] [place], [place] [id number] Social History Tobacco Use Types Packs/Day Years [...]
--- OUTSIDE RECORDS SUMMARY | 2024-08-30 07:35 | XMS_ITS | Encounter Summary ---
Author Organization [employer] ([place], [place], [place], [place]) Address [address] [place] [address] Care Team Providers Care Extension Edger Name Role Phone Unavailable Primary Care Provider Unavailabl e Encounter Details Date Type Department Care Team (Late st Contact Info) Description 08/22/2020 Transcribed Document [facility] [facility] [place] [address] ProviderMariela MD [address] [place] [address] Social History Tobacco Use Types [...] Conversion Note - Mariela ProviderMD - 08/22/2020 5:00 AM CDT Pain [...]
--- OUTSIDE RECORDS SUMMARY | 2024-08-30 07:35 | XMS_ITS | Encounter Summary ---
Author Organization [employer] ([place], [place], [place], [place]) Address [address] [place] [address] Care Team Providers Care Primary Clinician Name Role Phone Unavailable Primary Care Provider Unavailabl e Encounter Details Date Type Department Care Team (Late st Contact Info) Description 07/17/2019 Transcribed Document [facility] [place] Medicine [facility] [place] [address] ProviderMariela MD [address] [place] [phone] Social History Tobacco Use Types Packs/Day Years [...] : 07/17/2019 Call received from Tati Erickson [facility], with approval for LTAC services. Last covered date 07/18/2019 with anticipated DC on 07/19/2019. Please fax DC summary on date of discharge. Auth#[id number]. Care Management Note Report : СВЕТЛАНА WANG - 07/17/19 11:32:16 07/17/[address] Snyder (ID), he is in agreement to discharge to SNF on Wednesday, he would like for her to follow-up with the consulting ID (Dr. Stock) in 1 week upon discharge. TELEHEALTH appointment scheduled with Dr. Stock for 07/25/2019 @ 1600. [facility] will call [facility] to facilitate this visit. СВЕТЛАНА WANG - 07/17/19 10:32:31 07/17/2019 faxed clinical review the [facility] at [phone] to request approval for extended ltac services. Auth#[id number], awaiting approval. CM/Discharge plan attached to review. СВЕТЛАНА WANG - 07/17/19 09:06:05 07/17/[address] Jaffe's progress note, yahaira may be removed if okay with Dr. Saenz's office. Per our WOCN, Dr. Saenz's office said they need to see her before they make that decision. Appt scheduled for tomorrow, 07/18/2019 @ 1415; [facility] round-trip transport scheduled for 1315 pick-up ([id number]). Spoke with Lexy Valdez, they have not yet began the patient's insurance preauth, they will today, and be ready to admit on Wednesday. Dr. Jaffe notified and in agreement. [facility] rescheduled for discharge 07/19/2019 @ 1400 ([id number]). YOANNA ARAUOJ RN - 07/14/19 15:41:31 Yoanna Araujo 07/13/2019 1500 - patient has accepted bed offer at [facility], she will be transported on WednesdayJuly 16 at 2pm by [facility] Confirmation # [id number]. She declined the bed offer at [facility] Dr. Jaffe notified of discharge plan. YOANNA ARAUJO RN - 07/13/19 14:37:44 Yoanna Araujo 07/13/2019 1400 received call from Ratna with [facility] offering patient a bed, Received call from Isabelle with [facility] she is looking at patient and needed a current height and weight. Still waiting to see if any other bed offers come through. I also sent referral to [facility]. YOANNA ARAUJO, EDDIE - 07/13/19 11:04:03 Yoanna Araujo 07/13/2019 1100 faxed out referral for placement for patient to [facility] nursing and rehab, [facility] facilities and triology facilities. Awaiting call backs. СВЕТЛАНА WANG - 07/12/19 12:19:17 07/12/2019 Fax received from [facility] with approval for LTAC services with a request for updated discharge plans and clinical info to support needs if not discharged. Auth#[id number]. Clinical review or discharge summary to be faxed by 07/17/2019. YOANNA ARAUJO RN - 07/12/19 08:39:48 Yoanna Araujo 07/12/2019 0830 - faxed clinical review the [facility] at [phone] to request approval for extended ltac services. Auth#[id number], awaiting approval. YOANNA ARAUJO RN - 06/29/19 [...] health and she has been to the [facility] and [facility] in the past. She has the following equipment at home: wheel chair, walker, cane and shower chair. Her discharge plan is to go to rehab prior to returning home. PCP: Flavia MARQUEZ [address] [place] [address] Issuer: Dr. Shemar Barger [id number] Clemente Del Rio MD - Rheumatology - [address] [place] [address] Preferences: Home Health: [facility]: no preferences DME: [facility] - [address], [place] [address] Chcf: [facility] facility: no preferences Will continue to monitor patient for anticipated discharge needs YOANNA ARAUJO RN - 06/29/19 08:30:20 Yoanna Araujo 06/29/2019 0830 received fax from [facility] with approval for extended ltac coverage with next clinical review due on 07/12/2019. Auth#[id number]. Will continue to follow for anticipated discharge needs. YOANNA ARAUJO, EDDIE - 06/28/19 08:35:06 Yoanna Araujo 06/28/2019 0830 Faxed clinical review to [facility] at to request approval for extended Ltac services. Auth#[id number]. Pending Approval. Documentation Status Complete : Yes СВЕТЛАНА WANG - 07/17/2019 13:39 EDT documented in this encounter Plan of Treatment Not on file documented as of this encounter Visit Diagnoses Not on filedocumented in this encounter
--- OUTSIDE RECORDS SUMMARY | 2024-08-30 07:35 | XMS_ITS | Encounter Summary ---
Author Organization [email or web address] ([place], [place], [place], [place]) Address [address] [place] [address] Care Team Providers Care Design Lead Name Role Phone Unavailable Primary Care Provider Unavailabl e Encounter Details Date Type Department Care Team (Late st Contact Info) Description 07/18/2019 Transcribed Document [facility] [place] [facility] [place] [address] ProviderMariela MD [address] [place] [address] Social History Tobacco Use Types Packs/Day [...] Conversion Note - Mariela ProviderMD - 07/18/2019 10:12 AM CDT Interdisciplinary [...] for INR > 2. MASSIEL HENDERSON PharmD, BCPS - 07/18/2019 10:12 EDT documented in this encounter Plan of Treatment Not on file documented as of this encounter Visit Diagnoses Not on filedocumented in this encounter
--- OUTSIDE RECORDS SUMMARY | 2024-08-30 07:35 | XMS_ITS | Encounter Summary ---
Author Organization [employer] ([place], [place], [place], [place]) Address [address] [place] [address] Care Team Providers Care Call Center Supervisor Name Role Phone Unavailable Primary Care Provider Unavailabl e Encounter Details Date Type Department Care Team (Late st Contact Info) Description 08/28/2018 Transcribed Document [facility] [place] Family Medicine [facility] [place] [address] ProviderMariela MD [address] [place] [phone] Social History Tobacco Use Types Packs/Day Years Used Date Smoking Tobacco: Never Assessed Comments Unknown Sex and Gender Information Value Date Recorded Sex Assigned at Female 09/02/2021 8:57 PM CDT Legal Sex Female 6:58 PM CDT Gender Identity Female 09/02/2021 8:57 PM CDT Sexual Orientation Not on file documented as of this encounter Miscellaneous Notes * [employer]ner Conversion Note - Mariela ProviderMD - 08/28/2018 9:00 PM CDT Pain [...]
--- OUTSIDE RECORDS SUMMARY | 2024-08-30 07:35 | XMS_ITS | Encounter Summary ---
Author Organization [employer] ([place], [place], [place], [place]) Address [address] [place] [address] Care Team Providers Care Lofter Name Role Phone Unavailable Primary Care Provider Unavailabl e Encounter Details Date Type Department Care Team (Late st Contact Info) Description 07/05/2019 Transcribed Document [facility] [place] Family Medicine [address] [place] [address] ProviderMariela MD [address], [place] [phone] Social History Tobacco Use Types Packs/Day Years [...] MANUEL CABRAL LPN - 07/05/2019 17:52 EDT documented in this encounter Plan of Treatment Not on file documented as of this encounter Visit Diagnoses Not on filedocumented in this encounter
--- OUTSIDE RECORDS SUMMARY | 2024-08-30 07:35 | XMS_ITS | Encounter Summary ---
Author Organization [employer] ([place], [place], [place], [place]) Address [address] [place] [address] Care Team Providers Care Car Painter Name Role Phone Unavailable Primary Care Provider Unavailabl e Encounter Details Date Type Department Care Team (Late st Contact Info) Description 08/28/2018 Transcribed Document [facility] [facility] [place] [address] ProviderMariela MD [address] [place] [address] Social History Tobacco Use Types Packs/Day Years [...] Note - Mariela ProviderMD - 08/28/2018 9:00 AM CDT Pain [...]
--- OUTSIDE RECORDS SUMMARY | 2024-08-30 07:35 | XMS_ITS | Encounter Summary ---
Author Organization [employer] ([place], [place], [place], [place]) Address [address] [place] [address] Care Team Providers Care Sliding Joint Maker Name Role Phone Unavailable Primary Care Provider Unavailabl e Encounter Details Date Type Department Care Team (Late st Contact Info) Description 08/28/2018 Transcribed Document [facility] [place] Medicine [facility] [address] ProviderMariela MD [address] [place] [address] Social History Tobacco Use Types Packs/Day Years [...] Conversion Note - Mariela ProviderMD - 08/28/2018 3:00 PM CDT Pain Assessment Entered On: 08/28/2018 15:09 EDT Performed On: 08/28/2018 15:24 EDT by Pina Littlejohn Rn Intervention Information: acetaminophen Performed by Pina Littlejohn Rn on 08/28/2018 14:24:00 EDT acetaminophen,1000mg Oral Pain Assessment Pain Assessment : Follow-up assessment Pain Scale Goal : 3 Pain Improved by Intervention : Yes Pina Littlejohn Rn - 08/28/2018 15:09 EDT Electronically signed by Maureen Cornejo Conversion Junior Linux Systems Administrator Cerner at 06/16/2022 8:30 PM CDT documented in this encounter Plan of Treatment Not on file documented as of this encounter Visit Diagnoses Not on filedocumented in this encounter
--- OUTSIDE RECORDS SUMMARY | 2024-08-30 07:35 | XMS_ITS | Encounter Summary ---
Author Organization [employer] ([place], [place], [place], [place]) Address [address] [place] [address] Care Team Providers Care Safety Patrol Officer Name Role Phone Unavailable Primary Care Provider Unavailabl e Encounter Details Date Type Department Care Team (Late st Contact Info) Description 06/23/2019 Transcribed Document [facility] [place] Medicine [facility] [place] [address] ProviderMariela MD [facility] [address] Social History Tobacco Use [...] Conversion Note - Mariela ProviderMD - 06/23/2019 6:49 PM CDT Patient: [...] (JUN 19) L 1.5 (JUN 18) Micro: [facility]: 06/15 [facility] Blood cultures positive for group B strep and 2/2 bottles SJE: 06/16 fluid aspiration of left knee shows 118,150 white blood cells, GPC 06/16 repeat blood cultures with Group B Strep 06/16 MRSA surveillance culture and pro/pending 06/16 Urine culture in process/pending Rad: Radiology Results (Last 48 hours) [id number] -- 06/16/2019 21:08 CR Knee 1 or [...] and dictated by Dr. Justice Camacho.Transcribed by GEORGE ArmstrongCI have personally viewed, interpreted and dictated the [...]
--- OUTSIDE RECORDS SUMMARY | 2024-08-30 07:35 | XMS_ITS | Encounter Summary ---
Author Organization [employer] ([place], [place], [place], [place]) Address [address] [place] [address] Care Team Providers Care Farm Or Ranch Animal Caretaker Name Role Phone Unavailable Primary Care Provider Unavailabl e Encounter Details Date Type Department Care Team (Late st Contact Info) Description 07/07/2019 Transcribed Document [facility] [place] Family Medicine [facility] [place] [address] ProviderMariela MD [address] [place], [place] [phone] Social History Tobacco Use Types Packs/Day Years [...]
--- OUTSIDE RECORDS SUMMARY | 2024-08-30 07:35 | XMS_ITS | Encounter Summary ---
Author Organization [employer] ([place], [place], [place], [place]) Address [address] [place] [address] Care Team Providers Care Parachute Packer Name Role Phone Unavailable Primary Care Provider Unavailabl e Encounter Details Date Type Department Care Team (Late st Contact Info) Description 07/06/2019 Transcribed Document [facility] [place] [facility] [place] [address] ProviderMariela MD [address] [place] [address] Social History Tobacco Use Types Packs/Day Years [...]
--- OUTSIDE RECORDS SUMMARY | 2024-08-30 07:36 | XMS_ITS | Encounter Summary ---
Author Organization [employer] ([place], [place], [place], [place]) Address [address] [place] [address] Care Team Providers Care Field Gauger Name Role Phone Unavailable Primary Care Provider Unavailabl e Encounter Details Date Type Department Care Team (Late st Contact Info) Description 07/07/2019 Transcribed Document [facility] Radiology [address] [place] [address] Jordan Barahona MD [address] [id number] Social History Tobacco Use Types Packs/Day Years [...] L 57 (JULY 06:00) L 48 (JULY 05:30) L 57 (JULY 06 07:00) MAP 67 (JULY 05 23:30) 67 (JULY 05 23:30) 73 (JULY 05 14:00) SpO2 95 (JULY 06:00) 95 (JULY 05 23:30) 100 (JULY 05 14:00) Physical Examination: Gen: Alert, arousable, pleasant HEENT: [...] (JULY 03) L 1.9 (JULY 02) Micro: [facility]: 06/15 [facility] Blood cultures positive for group [...]
--- OUTSIDE RECORDS SUMMARY | 2024-08-30 07:36 | XMS_ITS | Referral Summary ---
Author Organization [employer] ([place], [place], [place], [place]) Address [address] [place] [address] Care Team Providers Care Mechanical Project Manager Name Role Phone Unavailable Primary [...]
--- OUTSIDE RECORDS SUMMARY | 2024-08-30 07:36 | XMS_ITS | Encounter Summary ---
Author Organization [employer] ([place], [place], [place], [place]) Address [address] [place] [address] Care Team Providers Care Class A Lineman Name Role Phone Unavailable Primary Care Provider Unavailabl e Encounter Details Date Type Department Care Team (Late st Contact Info) Description 07/19/2019 Transcribed Document [facility] [place] [facility] [place] [address] ProviderMariela MD [address] [place] [address] Social History Tobacco Use Types [...] provider. This is important. Medicines ??? Take tpau-aly-kfwbtju and prescription medicines only as told by [...] 02/15/2006 Document Revised: 10/26/2018 Document Reviewed: 10/26/2018 [employer] Interactive Patient Education ? 2019 [employer] How to Use a Knee Immobilizer [...] 02/01/2017 Elsevier Interactive Patient Education ? 2019 [employer] documented in this encounter Plan of Treatment Not on file documented as of this encounter Visit Diagnoses Not on filedocumented in this encounter
--- OUTSIDE RECORDS SUMMARY | 2024-08-30 07:36 | XMS_ITS | Encounter Summary ---
Author Organization [employer] ([place], [place], [place], [place]) Address [address] [place] [address] Care Team Providers Care Installation And Repair Technician Name Role Phone Unavailable Primary Care Provider Unavailabl e Encounter Details Date Type Department Care Team (Late st Contact Info) Description 08/29/[address] [facility] [place] Family Medicine [address] [place] [address] ProviderMariela MD [address] [place], [place] [phone] Social History Tobacco Use Types Packs/Day Years [...] Performed On: 08/29/2018 5:00 EDT by Mily Dikcinson Rn Chart Check Powerplans Initiated/Discontinued as Appropriate : Yes All Active Orders Reviewed : Yes Mily Dickinson Rn - 08/29/2018 5:49 EDT documented in this encounter Plan of Treatment Not on file documented as of this encounter Visit Diagnoses Not on filedocumented in this encounter
--- OUTSIDE RECORDS SUMMARY | 2024-08-30 07:36 | XMS_ITS | Encounter Summary ---
Author Organization [employer] ([place], [place], [place], [place]) Address [address] [place] [address] Care Team Providers Care Stack Yield Engineer Name Role Phone Unavailable Primary Care Provider Unavailabl e Encounter Details Date Type Department Care Team (Late st Contact Info) Description 07/08/2019 Transcribed Document [facility] [place] [facility] [place] [address] ProviderMariela MD [address] [place], [place] [phone] Social History Tobacco Use Types Packs/Day Years [...]
--- OUTSIDE RECORDS SUMMARY | 2024-08-30 07:36 | XMS_ITS | Encounter Summary ---
Author Organization [employer] ([place], [place], [place], [place]) Address [address] [place] [address] Care Team Providers Care Roadmaster Name Role Phone Unavailable Primary Care Provider Unavailabl e Encounter Details Date Type Department Care Team (Late st Contact Info) Description 08/22/2020 Transcribed Document [facility] [place] Family Medicine Count includes the [facility] [place] [address] ProviderMariela MD [address] [place] [address] Social History Tobacco Use Types [...] Conversion Note - Mariela ProviderMD - 08/22/2020 11:15 AM CDT Spiritual Care Short Form Entered On: 08/22/2020 13:11 EDT Performed On: 08/22/2020 11:15 EDT by JASON DÍAZ Chaplain General Information, Spiritual Care Spiritual Care Referred by : Collaborative Teacher initiated Reason for Visit : Initial [...] her situation. Invited her to request a hand shoes sewer for further visits if she wants. Spiritual/Emotional Acuity : Low Spiritual Framework : Unknown Roman Catholic Preference : Rastafari, Unknown JASON DÍAZ, Collaborative Teacher - 08/22/2020 13:08 EDT Electronically signed by [facility] Conversion Transfer And Pumphouse Operator Chief Cerner at 06/16/2022 8:13 PM CDT documented in this encounter Plan of Treatment Not on file documented as of this encounter Visit Diagnoses Not on filedocumented in this encounter
--- OUTSIDE RECORDS SUMMARY | 2024-08-30 07:36 | XMS_ITS | Encounter Summary ---
Author Organization [employer] ([place], [place], [place], [place]) Address [address] [place] [address] Care Team Providers Care Cytology Manager Name Role Phone Unavailable Primary Care Provider Unavailabl e Encounter Details Date Type Department Care Team (Late st Contact Info) Description 07/19/2019 Transcribed Document [facility] [place] [address] ProviderMariela MD [address] [place] [address] Social History Tobacco Use Types Packs/Day [...] Note - Mariela Gates MD - 07/19/2019 2:03 PM CDT [address] [address] SOFIA GILL :1940 Visit Time:06/26/2019 [...] Instructions From Your Care Team Discharge to [place] 07/19/2019 @ 1400 (Maria L wheelchair van) Call report to [phone] Fax DC summary to [phone] Discharge Follow Up Instructions: F/U with dr cordova as kary.F/U with dr lopez as kary, Order Comment: Follow-up with PCP as scheduled or PRN Activity: PER DR MONAHAN RECOMMENDATIONS, Discharge Activity: Other (use Special Instructions) Diet: Discharge Diet: Resume usual diet as tolerated Follow-Up Appointments Follow Up with NIMO EPPS MD-ORT When 08/17/2019 01:30 PM EDT Comments Ortho follow-up Where: [address] [place], [place] [id number]- [phone] Follow Up with ARA STOCK MD-INF When 07/25/2019 04:00 PM EDT Comments ID Follow-up. TELEHEALTH appt with Dr. Stock. The office will call [facility] to facilitate this visit. Where: [address] [phone] Follow Up with ANDREW OQUENDO MD-INT When Comments Admitting physician @ [facility] Where: Warfarin Instructions Notify Provider of Signs/Symptoms of: Significant bleeding, Clot Medications What How Much When Instructions Next Dose acetaminophen-hydrocodone ([place] 7.5 mg-325 mg oral tablet) 1 Tablet(s) [...] tablet) 1 Tablet(s) Oral Every Day saccharomyces boulardii lyo (Florastor 250 mg oral [...] (fluticasone 50 mcg/ inh nasal spray) 2 [place](s) Nostrils Both Two Times A Day as [...] other medicines or supplements? Many prescription and cyyj-vsc-ylveeih medicines can interfere with warfarin. Talk with your health care provider or your pharmacist before starting or stopping any new medicines. This includes uqcf-jsm-jpsqdpe vitamins, dietary supplements, herbal medicines, and pain medicines. Your warfarin dosage may need to be adjusted. ??? Some common rwyy-teu-qvraxyn medicines that may increase the risk of [...] that you work with a diet and animal nutritionist (dietitian). ??? Vitamin K decreases the effect [...] cooked. ??? Collards, raw or cooked. ??? [place] chard, raw or cooked. ??? Mustard greens, raw or cooked. ??? Turnip greens, raw or cooked. ??? Parsley, raw. ??? Broccoli, cooked. ??? Noodles, eggs, and spinach, enriched. ??? [place] sprouts, raw or cooked. ??? Beet greens, [...] diet. ??? You start or stop any rmiv-cna-ytagaos medicine, prescription medicine, or dietary supplement. ??? [...] 02/15/2006 Document Revised: 06/21/2017 Document Reviewed: 05/13/2016 [employer] Patient Education ?? 2019 [employer]. Hypertension, Adult High blood pressure (hypertension) is [...] provider. This is important. Medicines ??? Take lnag-vzg-hclbtpo and prescription medicines only as told by [...] 02/15/2006 Document Revised: 10/26/2018 Document Reviewed: 10/26/2018 [employer] Patient Education ?? 2019 [employer] How to Use a Knee Immobilizer [...] 02/15/2006 Document Revised: 02/01/2017 Document Reviewed: 02/01/2017 [employer] Patient Education ?? 2019 [employer]. Emergency Awareness and Preventative Care STROKE is [...] Assistance with quitting is available by contacting 9-373-[facility]-NOW. This is a free resource providing counseling, [...] range between ( 0.0 and 7.0 ) Gray #: 0.79 K/uL -- Normal range between ( 0.16 and 1.00 ) Eos #: 0.47 x10(3)/uL -- Normal range between ( 0.00 and 0.80 ) Gray %: 9.7 % -- Normal range between [...] was given the opportunity to ask questions. Patient/Home Mission Worker Name: Patient/Home Mission Worker Signature: Relationship to Patient: Clinician/Hospital Home Mission Worker Signature: Date: documented in this encounter Plan of Treatment Not on file documented as of this encounter Visit Diagnoses Not on filedocumented in this encounter
--- OUTSIDE RECORDS SUMMARY | 2024-08-30 07:36 | XMS_ITS | Encounter Summary ---
Author Organization [employer] ([place], [place], [place], [place]) Address [address] [place] [address] Care Team Providers Care Physical Science Technician Name Role Phone Unavailable Primary Care Provider Unavailabl e Encounter Details Date Type Department Care Team (Late st Contact Info) Description 07/18/2019 Transcribed Document [facility] [place] [address] [place] [address] ProviderMariela MD [address], [place] [id number] Social History Tobacco Use Types Packs/Day Years [...] Historical ProviderMD - 07/18/2019 2:00 AM CDT Senior Media Director Details Entered On: 07/18/2019 2:50 EDT Performed [...] Kena Ling RN - 07/18/2019 2:49 EDT Electronically signed by [facility] Conversion Electric Meter Reader Cerner at 06/16/2022 8:16 PM CDT documented in this encounter Plan of Treatment Not on file documented as of this encounter Visit Diagnoses Not on filedocumented in this encounter
--- OUTSIDE RECORDS SUMMARY | 2024-08-30 07:36 | XMS_ITS | Encounter Summary ---
Author Organization [employer] ([place], [place], [place], [place]) Address [address] [place] [address] Care Team Providers Care Court Recorder Name Role Phone Unavailable Primary Care Provider Unavailabl e Encounter Details Date Type Department Care Team (Late st Contact Info) Description 08/22/2020 Transcribed Document [facility] [place] [facility] [address] ProviderMariela MD [address] [place] [address] Social History Tobacco Use Types [...] Conversion Note - Mariela ProviderMD - 08/22/2020 9:00 PM CDT Pain [...]
--- OUTSIDE RECORDS SUMMARY | 2024-08-30 07:36 | XMS_ITS | Encounter Summary ---
Author Organization [employer] ([place], [place], [place], [place]) Address [address] [place] [address] Care Team Providers Care Felt Pad Cutter Name Role Phone Unavailable Primary Care Provider Unavailabl e Encounter Details Date Type Department Care Team (Late st Contact Info) Description 08/22/2020 Transcribed Document [facility] [place] Family Medicine [address] [place] [address] ProviderMariela MD [address] [place] [address] Social History Tobacco Use Types [...] Didi Villegas, RN - 08/22/2020 18:40 EDT documented in this encounter Plan of Treatment Not on file documented as of this encounter Visit Diagnoses Not on filedocumented in this encounter
--- OUTSIDE RECORDS SUMMARY | 2024-08-30 07:36 | XMS_ITS | Encounter Summary ---
Author Organization [employer] ([place], [place], [place], [place]) Address [address] [place] [address] Care Team Providers Care First Beater Name Role Phone Unavailable Primary Care Provider Unavailabl e Encounter Details Date Type Department Care Team (Late st Contact Info) Description 07/19/2019 Transcribed Document [facility] [place] [facility] [place] [address] ProviderMariela MD [address] [place] [address] Social History Tobacco Use Types [...] Sudden dizziness or trouble with gait, Call 9-: EMS activation is crucial My LDL Level: [...]
--- OUTSIDE RECORDS SUMMARY | 2024-08-30 07:36 | XMS_ITS | Clinical Summary ---
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 (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 07/20 Aurelia Soto Leukemoid reaction Group B strep agalactiae Sepsis A40.1 (ICD-10-CM ) 07/20 Active 07/20 Aurelia Soto Sepsis due to streptococcus, group B Group B streptococcu s agalactiae infection 647932204 (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 07/20 Aurelia Soto Streptococcus agalactiae infection Disruption of external operation (surgical) wound, subsequent encounter(s) T81.31xD (ICD-10-CM ) 05/08 Resolved 05/08 Aurelia Valera Disruption of external operation (surgical) wound, not elsewhere classified, subsequent encounter halfway (current) use of suppressive antibiotics Z79.2 (ICD-10-CM ) 05/08 Resolved 05/08 Aurelia Soto 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 Benign Essential Hypertension 9550859 (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 07/20 Aurelia Soto Benign essential hypertension ESR, elevated 233622296 (SNOMED CT) Resolved Aurelia Valera Erythrocyte sedimentation rate above reference range 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 Z79.2 (ICD-10-CM ) 05/08 Removed 05/08 Aurelia Valera halfway (current) use of antibiotics Disruption of external operation (surgical) wound, subsequent encounter(s) T81.31xD (ICD-10-CM ) 05/08 Removed 05/08 Aurelia Valera Disruption of external operation (surgical) wound, not elsewhere classified, subsequent encounter Adverse drug reaction 127414549 (SNOMED CT) 03/17 Inactive 03/17 Aurelia Valera Opioid analgesic adverse reaction Stasis dermatitis 81281177 (SNOMED CT) 03/09 Active 03/09 Carlos Wright MD Stasis dermatitis Adverse drug reaction 661329198 (SNOMED CT) 03/17 Removed 03/17 Carlos Wright MD Opioid analgesic adverse reaction ESR, elevated 794871803 (SNOMED CT) Removed Carlos Wright MD Erythrocyte [...] limb Other obesity due to excess calories 190174895 (SNOMED CT) Inactive Eileen Aiken Simple obesity Medications Medication Instructions Start Date Stop Date Generic Name NDC Provider CEPHALEXIN 500 MG CAPS TAKE 1 CAPSULE BY MOUTH ONCE DAILY 06/12 cephalexin 62506381645 Tyrell Stock MD DOXYCYCLINE MONOHYDRATE 100 MG CAPS Take 1 capsule by mouth once a day 0 4 doxycycline monohydrate 25492782072 Tyrell Stock MD CEPHALEXIN 500 MG CAPS Take 1 capsule by mouth once a day 0 4/ cephalexin 39522560159 Tyrell Stock MD CEPHALEXIN 500 MG CAPS Take 1 capsule by mouth once a day 0 3 cephalexin 98063496555 Kena Parmar RN CEPHALEXIN 500 MG CAPS TAKE 1 CAPSULE BY MOUTH ONCE DAILY 0 06/12 cephalexin 96562593907 Tyrell Stock MD DOXYCYCLINE MONOHYDRATE 100 MG CAPS Take 1 capsule by mouth once a day 0 doxycycline monohydrate 57147724749 Tyrell Stock MD CEPHALEXIN 500 MG CAPS Take 1 capsule by mouth once a day 0/09 cephalexin 94213569719 Tyrell Stock MD CEPHALEXIN 500 MG CAPS Take 1 capsule by mouth once a day 0 1 cephalexin 18894850476 Tyrell Stock MD DOXYCYCLINE HYCLATE 100 MG CAPS Take 1 capsule by mouth once a day 0 06/08 doxycycline hyclate 57076786445 Tyrell Stock MD CEPHALEXIN 500 MG CAPS Take 1 capsule by mouth once a day 0 07/18 cephalexin 62116728278 Tyrell Stock MD HYDROCODONE-ACETAM INOPHEN 5-325 MG TABS hydrocodone-aceta minophen 95128255866 Karrie Minor DOXYCYCLINE HYCLATE 100 MG CAPS TAKE 1 CAPSULE BY MOUTH ONCE DAILY 0 06/15 doxycycline hyclate 12635736645 Tyrell Stock MD CEPHALEXIN 500 MG CAPS Take 1 capsule by mouth once a day TAKE 1 CAPSULE BY MOUTH ONCE DAILY 0 06/15 cephalexin 33820777431 Tyrell Stock MD CEPHALEXIN 500 MG CAPS Take 1 capsule by mouth once a day 0 06/09 cephalexin 13072302993 Tyrell Stock MD DOXYCYCLINE HYCLATE 100 MG CAPS Take 1 capsule by mouth once a day 0 06/09 doxycycline hyclate 63763749818 Tyrell Stock MD CEPHALEXIN 500 MG CAPS Take 1 capsule by mouth once a day 0 06/[address] [facility] CEPHALEXIN 500 MG CAPS Take 1 capsule by mouth once a day TAKE 1 CAPSULE BY MOUTH ONCE DAILY 07/11 cephalexin 87274636391 Tyrell Stock MD DOXYCYCLINE HYCLATE 100 MG CAPS Take 1 capsule by mouth once a day 06/[address] [facility] DOXYCYCLINE HYCLATE 100 MG CAPS TAKE 1 CAPSULE BY MOUTH ONCE DAILY 07/11 doxycycline hyclate 47919354197 Tyrell Stock MD DOXYCYCLINE HYCLATE 100 MG CAPS Take 1 capsule by mouth once a day 0 06/13 doxycycline hyclate 75681390234 Tyrell Stock MD CEPHALEXIN 500 MG CAPS Take 1 capsule by mouth once a day 0 06/13 cephalexin 30092371306 Tyrell Stock MD HYDROCODONE-ACETAM INOPHEN 5-325 MG TABS 0 hydrocodone-aceta minophen 38054612163 Karrie Olivaresde CEPHALEXIN 500 MG CAPS Take 1 capsule by mouth once a day 0 cephalexin 96470811116 Tyrell Stock MD DOXYCYCLINE HYCLATE 100 MG CAPS Take 1 capsule by mouth once a day 0 06/06 doxycycline hyclate 56387768259 Tyrell Stock MD MAGNESIUM OXIDE -MG SUPPLEMENT 250 MG TABS 2 tablet by mouth twice a day magnesium oxide 15683412175 Umu Carter PANTOPRAZOLE SODIUM 40 MG TBEC Take 1 tablet by mouth once a day pantoprazole 12474397120 [employer] FLORASTOR 250 MG CAPS Take capsule by mouth twice a day saccharomyces boulardii 59877574829 Umu Carter ROSUVASTATIN CALCIUM 10 MG TABS Take 1 tablet by mouth once a day rosuvastatin 59640423342 Umu Petitdox POTASSIUM CHLORIDE ER 20 MEQ CR-TABS Take tablet by mouth twice a day potassium chloride 04332781145 Umu [employer] FLUTICASONE PROPIONATE 50 MCG/ACT SUSP 2 spray into both nostrils twice a day as needed fluticasone propionate 39892616075 Umu [employer] WARFARIN SODIUM 2 MG TABS Take 1 tablet by mouth once a day warfarin 39009650674 Umu [employer] LISINOPRIL 10 MG TABS Take 1 tablet by mouth once a day lisinopril 33301280830 Umu [employer] CO Q 10 100 MG CAPS Take one by mouth daily coenzyme [id number]-gsoybge e 01340848088 Umu [employer] B-12 5000 MCG CAPS Take one by mouth daily cyanocobalamin (vitamin b-12) 13050615396 Umu [employer] DOCUSATE SODIUM 100 MG CAPS Take capsule by mouth twice a day docusate sodium 20413572094 Umu [employer] HYDROCODONE-ACETAM INOPHEN 7.5-325 MG TABS tablet by mouth every four hours as needed hydrocodone-aceta minophen 94885372324 Umu [employer] SENOKOT S 8.6-50 MG TABS 2 tablet by mouth every night sennosides-docusa te sodium 76715524660 Umu [employer] DULOXETINE HCL 60 MG CPEP Take 1 capsule by mouth once a day duloxetine 21437665248 [employer]mu [employer] GABAPENTIN 300 MG CAPS Take 1 capsule by mouth once a day gabapentin 59788335328 [employer] Adult Aspirin Regimen 81 mg tablet,delayed release (DR/EC) Take 1 tablet by mouth once a day aspirin 60483280980 Umu [employer] LEVOTHYROXINE SODIUM 100 MCG TABS Take 1 tablet by mouth once a day levothyroxine 07203533436 Umu Carter LORATADINE 10 MG TABS Take 1 tablet by mouth once a day loratadine 44783264167 Umu Carter DAILY MULTIVITAMIN CAPS Take 1 capsule by mouth once a day tp-yo-pu-vit [id number]-xlf-[id number] 84065581877 Umu Carter DOXYCYCLINE MONOHYDRATE 100 MG CAPS one cap bid 9 DOXYCYCLINE MONOHYDRATE 58308814747 Tyrell Stock MD CEPHALEXIN 500 MG CAPS one capsule bid 9 CEPHALEXIN 84359224690 Tyrell Stock MD DOXYCYCLINE MONOHYDRATE 100 MG CAPS one cap bid 6 DOXYCYCLINE MONOHYDRATE 32987663001 Tyrell Stock MD DOXYCYCLINE MONOHYDRATE 100 MG CAPS one cap bid 05/05 DOXYCYCLINE MONOHYDRATE 24042240796 Tyrell Stock MD CEPHALEXIN 500 MG CAPS two cap every 8 hours 04/09 CEPHALEXIN 25124034219 Tyrell Stock MD CEPHALEXIN 500 MG CAPS two cap tid 0 CEPHALEXIN 66506419327 Tyrell Stock MD CEPHALEXIN 500 MG CAPS two capsules every 12 hours 11/28 CEPHALEXIN 64015029302 Tyrell Stock MD CEFTRIAXONE SODIUM (IV) SOLR Rocephin 2G IV Q24hrs / Meally [phone] CEFTRIAXONE SODIUM SOLR 01727649569 Rayna Perry CEFTRIAXONE SODIUM (IV) SOLR Rocephin 2G IV Q24hrs / Meally [phone] CEFTRIAXONE SODIUM SOLR 20365648648 Pina Gillespie RN WARFARIN SODIUM 2 MG TABS Take one by mouth daily 4 WARFARIN SODIUM 87280108215 Umu Carter POTASSIUM CHLORIDE ER 20 MEQ CR-TABS Take by mouth twice a day 2/06 POTASSIUM CHLORIDE 33150045335 Umu Carter MAGNESIUM OXIDE 250 MG TABS 2 tabs twice daily 08/29 MAGNESIUM OXIDE 39509321301 Umu Petitdox LORATADINE 10 MG TABS Take one by mouth daily 2/ LORATADINE 82887422484 Umu Carter LISINOPRIL 10 MG TABS Take one by mouth daily 2/ LISINOPRIL 62589823252 Umu Carter FLUTICASONE PROPIONATE 50 MCG/ACT SUSP 2 Silex, Nostrils Both, Silex, BID, PRN 08/29 FLUTICASONE PROPIONATE 98669064629 Umu [employer] DOCUSATE SODIUM 100 MG CAPS Take by mouth twice a day 08/29 DOCUSATE SODIUM 52202978930 Umu Petitdox B-12 5000 MCG CAPS Take one by mouth daily 2 CYANOCOBALAMIN 82367010656 Umu Carter LEVOTHYROXINE SODIUM 100 MCG TABS Take one by mouth daily 05/30 LEVOTHYROXINE SODIUM 94577376969 Umu Petitd[employer] SENOKOT S 8.6-50 MG TABS 2 tabs at bedtime 2/ SENNOSIDES-DOCUSA TE SODIUM 02879530812 Umu [employer] PANTOPRAZOLE SODIUM 40 MG TBEC Take one by mouth daily 05/30 PANTOPRAZOLE SODIUM 47332602990 Umu Petitdox DAILY MULTIVITAMIN CAPS Take one by mouth daily 2/06 MULTIPLE VITAMINS-MINERALS 57032886948 Umu [employer]itd[employer] FLORASTOR 250 MG CAPS Take by mouth twice a day 2/ SACCHAROMYCES BOULARDII 97084011442 Umu Carter DULOXETINE HCL 60 MG CPEP Take one by mouth daily 4 DULOXETINE HCL 60717706282 Umu [employer] ROSUVASTATIN CALCIUM 10 MG TABS Take one by mouth daily 08/29 ROSUVASTATIN CALCIUM 26570731483 Umu Carter CO Q 10 CAPS Take one by mouth daily 04/06 COENZYME Q10 CAPS 25879966898 Umu Carter ADULT ASPIRIN REGIMEN 81 MG ORAL TABLET DELAYED RELEASE Take one by mouth daily 05/30 ASPIRIN 20738437774 Umu Carter GABAPENTIN 300 MG CAPS Take one by mouth daily 08/29 GABAPENTIN 28313332726 Umu Carter HYDROCODONE-ACETAM INOPHEN 7.5-325 MG TABS Q4H/PRN 04/06 HYDROCODONE-ACETA MINOPHEN 67502473731 Umu Carter B-12 100 MCG TABS by mouth daily 07/19 CYANOCOBALAMIN 24279408458 Umu Carter MULTIVITAL ORAL TABLET Daily. 07/19 MULTIPLE VITAMINS-MINERALS 88800994325 Umu Carter ALBUTEROL SULFATE (2.5 MG/3ML) 0.083% NEBU Four times daily as needed. 07/19 ALBUTEROL SULFATE 27651776663 Umu Carter DOCUSATE SODIUM 100 MG CAPS Daily. 07/19 DOCUSATE SODIUM 21299315016 Umu Carter GNP FLUTICASONE PROPIONATE 50 MCG/ACT SUSP 2 sprays to both nostrils as needed. 07/19 FLUTICASONE PROPIONATE 16357883601 Umu Carter SYNTHROID 100 MCG TABS Daily. 07/19 LEVOTHYROXINE SODIUM 61418630937 Umu Carter MIRALAX 17 GM/SCOOP POWD 17g once daily. 07/19 POLYETHYLENE GLYCOL 3350 11023259407 Umu Carter CO Q 10 10 MG CAPS Daily. 07/19 COENZYME Q10 80495943466 Umu Carter TURMERIC CURCUMIN CAPS Daily. 07/19 TURMERIC CAPS 81339799389 Umu Pet[employer] CALCIUM + D + K TABS 600mg daily. 07/19 CALCIUM-VITAMIN D-VITAMIN K TABS 04097728035 Umu Pet[employer] INDAPAMIDE 2.5 MG TABS Daily. 07/19 INDAPAMIDE 82638193493 Umu Petitd[employer] POTASSIUM CHLORIDE 20 MEQ PACK Twice daily. 07/19 POTASSIUM CHLORIDE 30992782142 Umu Carter SIMVASTATIN 20 MG TABS 1 tab at bedtime. 07/19 SIMVASTATIN 51337782733 Umu Carter TRAMADOL HCL 50 MG TABS Every 6 hours as needed. 07/19 TRAMADOL HCL 75333046140 Umu [employer] DICLOFENAC SODIUM 75 MG TBEC Twice daily--pt's request. 07/19 DICLOFENAC SODIUM 84117534874 Umu Carter PROBIOTIC ACIDOPHILUS ORAL TABLET Daily. 07/19 LACTOBACILLUS 40708286782 Umu Carter KEFLEX 500 MG ORAL CAPSULE by mouth four times a day 07/19 CEPHALEXIN 58200651463 Umu Carter KEFLEX 500 MG ORAL CAPSULE one po qid 06/04 CEPHALEXIN 13287776610 Darby Lynch APRN B-12 100 MCG TABS by mouth daily 04/08 CYANOCOBALAMIN 93688522835 Christine Morguelan OXYCODONE HCL 5 MG CAPS 1-2 tabs every 6 hours as needed for pain. 05/04 OXYCODONE HCL 47264031057 Christine Morguelan COUMADIN 2 MG ORAL TABLET Take once daily for six weeks 05/04 WARFARIN SODIUM 55695474720 Christine Morguelan GABAPENTIN 300 MG CAPS At bedtime. 05/04 GABAPENTIN 24924726622 Christine Morguelan CYANOCOBALAMIN 1000 MCG/ML SOLN 5000mcg daily. 3 CYANOCOBALAMIN 39314328682 Christine Castañeda MORPHINE SULFATE 15 MG TABS Every 12 hours. 05/04 MORPHINE SULFATE 41773591827 Christine Castañeda CYCLOBENZAPRINE HCL TABLET As needed. 05/04 CYCLOBENZAPRINE HCL TABS 38981472825 Christine Castañeda KEFLEX 500 MG ORAL CAPSULE by mouth four times a day 08/01 CEPHALEXIN 82515321838 Inés Wright DOXYCYCLINE HYCLATE 100 MG CAPS 100mg po twice daily 03/30 DOXYCYCLINE HYCLATE 53082157310 Inés Wright DOXYCYCLINE HYCLATE 100 MG CAPS 100mg po twice daily 06/06 DOXYCYCLINE HYCLATE 57928588580 Carlos Wright MD ROCEPHIN SOLUTION RECONSTITUTED 2g IV daily [facility] [phone] FAX 03/09 CEFTRIAXONE SODIUM SOLR 79444663590 Kiara Medrano RN COUMADIN 2 MG ORAL TABLET Take once daily for six weeks 05/04 WARFARIN SODIUM 26017820632 Nataliia Domingo Baudilio PROBIOTIC ACIDOPHILUS ORAL TABLET Daily. 08/01 LACTOBACILLUS 92560308690 Eileen Aiken ROCEPHIN SOLUTION RECONSTITUTED 2g IV daily [facility] [phone] FAX CEFTRIAXONE SODIUM SOLR 31659412002 Carole Carrasco RN CYCLOBENZAPRINE HCL TABLET As needed. 0 05/04 CYCLOBENZAPRINE HCL TABS 05522778643 Eileen Aiken DICLOFENAC SODIUM 75 MG TBEC Twice daily--pt's request. 05/30 DICLOFENAC SODIUM 72489561478 Eileen Aiken TRAMADOL HCL 50 MG TABS Every 6 hours as needed. 0 6 TRAMADOL HCL 94389307420 Eileen Aiken SIMVASTATIN 20 MG TABS 1 tab at bedtime. 6/ SIMVASTATIN 04342875427 Eileen Aiken MORPHINE SULFATE 15 MG TABS Every 12 hours. 3/06 MORPHINE SULFATE 43006913427 Eileen Aiken POTASSIUM CHLORIDE 20 MEQ PACK Twice daily. 4/ POTASSIUM CHLORIDE 94741485623 Eileen Aiken INDAPAMIDE 2.5 MG TABS Daily. 6 INDAPAMIDE 57453079101 Eileen Attila CYANOCOBALAMIN 1000 MCG/ML SOLN 5000mcg daily. 9 CYANOCOBALAMIN 07373388878 Eileen Aiken CALCIUM + D + K TABS 600mg daily. 08/01 CALCIUM-VITAMIN D-VITAMIN K TABS 82159394507 Eileen Attila TURMERIC CURCUMIN CAPS Daily. 4 TURMERIC CAPS 55473657161 Eileen Attila CO Q 10 10 MG CAPS Daily. 6 COENZYME Q10 71761356736 Eileen Attila MIRALAX 17 GM/SCOOP POWD 17g once daily. 04/11 POLYETHYLENE GLYCOL 3350 89761710634 Eileen Attila SYNTHROID 100 MCG TABS Daily. 4 LEVOTHYROXINE SODIUM 15947903663 Eileen Attila GABAPENTIN 300 MG CAPS At bedtime. 7 GABAPENTIN 43543174784 Eileen Attila GNP FLUTICASONE PROPIONATE 50 MCG/ACT SUSP 2 sprays to both nostrils as needed. 6 FLUTICASONE PROPIONATE 87260028383 Eileen Attila DOCUSATE SODIUM 100 MG CAPS Daily. 7 DOCUSATE SODIUM 16665469352 Eileen Attila ALBUTEROL SULFATE (2.5 MG/3ML) 0.083% NEBU Four times daily as needed. 4 ALBUTEROL SULFATE 18159577166 Eileen Attila COUMADIN 1 MG ORAL TABLET Once daily for 6 weeks. WARFARIN SODIUM 31420387527 Eileen Aiken OXYCODONE HCL 5 MG CAPS 1-2 tabs every 6 hours as needed for pain. 03/12 OXYCODONE HCL 26023038323 Eileen Aiken MULTIVITAL ORAL TABLET Daily. 08/01 MULTIPLE VITAMINS-MINERALS 70181639545 Eileen Aiken ROCEPHIN SOLUTION RECONSTITUTED 2g IV daily HH [facility] CEFTRIAXONE SODIUM SOLR 26072376872 Chevy P Medications Administered No information available. 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 Plan of Care Type Date Detail Appointment 09:15 AM Tyrell Stock MD, [address], [address], [place], [address], Pending order Continue oral an tibiotics Pending [...] (G2211) CPT-Cooral Continue oral antibiotics 20 22/12/15 CPT-80180 CMP [id number] CBC with Differential 2022 CPT-59460 C- reactive protein CPT-09354 Sedimentation Rate (ESR) 202 05/09/15 CPT-Cooral Continue oral antibiotics 21/06/16 CPT-79394 CMP [id number] CBC with Differential 2022 CPT-52709 C- reactive protein CPT-50986 Sedimentation Rate (ESR) 202 05/02/16 CPT-Cooral Continue oral antibiotics 20 20/12/16 CPT-66195 CMP [id number] CBC with Differential 2021 CPT-26241 C- reactive protein CPT-16091 Sedimentation Rate (ESR) 202 04/10/16 CPT-Cooral Continue oral antibiotics 20 20/06/10 CPT-Cooral Continue oral antibiotics 20 18/02/06 CPT-Cooral Continue oral antibiotics 20 19/11/06 CPT-53111 CMP [id number] CBC with Differential 2020 CPT-40200 C- reactive protein CPT-09196 Sedimentation Rate (ESR) 202 03/09/06 CPT-Cooral Continue oral antibiotics 20 20/08/07 CPT-Cooral Continue oral antibiotics 20 20/05/07 CPT-23368 CMP [id number] CBC with Differential 2020 CPT-09898 C- reactive protein CPT-10697 Sedimentation Rate (ESR) 202 03/03/07 CPT-labs Labs CPT-Cooral Continue oral antibiotics 20 17/02/07 CPT-Cooral Continue oral antibiotics 20 19/12/11 CPT-32867 CMP [id number] CBC with Differential 2019 CPT-75368 C- reactive protein CPT-11622 Sedimentation Rate (ESR) 202 CPT-Cooral Continue oral antibiotics 20 18/11/08 CPT-38001 CMP [id number] CBC with Differential 2019 CPT-72438 C- reactive protein CPT-60636 Sedimentation Rate (ESR) 202 CPT-Cooral Continue oral antibiotics 20 18/09/19 CPT-ca Continue IV antibiotics 2019 CPT-oral Discontinue oral antibiotics CPT-ca Continue IV antibiotics 2019 CPT-sl STAT Labs [id number] CBC with Differential 2017 CPT-50600 CMP CPT-33621 Sedimentation Rate (ESR) 201 10/03/08 CPT-09688 C- reactive protein CPT-Cooral Continue oral antibiotics 20 16/05/05 CPT-sl STAT Labs CPT-Cooral Continue oral antibiotics 20 18/03/01 CPT-33905 Unna Boot CPT-PICREM PICC Removal CPT-DC Discontinue [...]
--- OUTSIDE RECORDS SUMMARY | 2024-08-30 07:36 | XMS_ITS | Encounter Summary ---
Author Organization [employer] ([place], [place], [place], [place]) Address [address] [place] [address] Care Team Providers Care Real Estate Clerk Name Role Phone Unavailable Primary Care Provider Unavailabl e Encounter Details Date Type Department Care Team (Late st Contact Info) Description 08/22/2020 Transcribed Document [facility] Family Medicine [facility] [place] [address] ProviderMariela MD [facility] [place] [address] Social History Tobacco [...] Conversion Note - Mariela Gates MD - 08/22/2020 2:45 PM CDT Patient: SOFIA [...] EDT Chloraseptic Menthol 1.4% topical spray: 5 [place], Oral, [place], Q2H, PRN for Sore Throat, Routine, Start [...] EDT fluticasone 50 mcg/inh nasal spray: 2 [place], Nostrils Both, [place], BID, PRN for Allergies, Routine, Start 08/20/20 [...] Refill(s) fluticasone 50 mcg/inh nasal spray: 2 [place], Nostrils Both, [place], BID, PRN Allergies, 0 Refill(s) furosemide 40 [...] Oral, Daily fluticasone 0.05% nasal spray 2 [place], Nostrils Both, BID magnesium hydroxide 8% liq [...] Oral, Q4H phenol 1.4% throat spray 5 [place], Oral, Q2H promethazine 25 mg tab 12.5 [...] Close monitoring H&H. Ambulation. Fall risk precautions. long-term facility in a.m. if stable. Electronically signed by Maureen Cornejo Conversion Vice President Investor Relations Cerner at 06/16/2022 8:22 PM CDT documented in this encounter Plan of Treatment Not on file documented as of this encounter Visit Diagnoses Not on filedocumented in this encounter
--- OUTSIDE RECORDS SUMMARY | 2024-08-30 07:36 | XMS_ITS | Encounter Summary ---
Author Organization [employer] ([place], [place], [place], [place]) Address [address] [place] [address] Care Team Providers Care Site Worker Name Role Phone Unavailable Primary Care Provider Unavailabl e Encounter Details Date Type Department Care Team (Late st Contact Info) Description 08/29/2018 Transcribed Document [facility] [place] [facility] [place] [address] ProviderMariela MD [facility] [place] [address] Social History Tobacco Use [...] EDT Performed On: 08/29/2018 17:00 EDT by CHAITAYNA SIMON, PT Discharge Summary Reason for Discharge : Discharged from hospital Discharge Summary Comment, PT : At time of discharge from hospital to the [facility], pt had met 0/2 acute care goals as she was discharged to rehab the same day as the PT evaluation. Pt was independent with bed mobility and transfers. CHAITANYA SIMON, PT - 09/03/2018 9:58 EDT Banquet Waiter/Waitress Goals Other PT LTG Grid Goal #1 [...] CHAITANYA SIMON, PT - 09/03/2018 9:58 EDT documented in this encounter Plan of Treatment Not on file documented as of this encounter Visit Diagnoses Not on filedocumented in this encounter
--- OUTSIDE RECORDS SUMMARY | 2024-08-30 07:36 | XMS_ITS | Encounter Summary ---
Author Organization [employer] ([place], [place], [place], [place]) Address [address] [place] [address] Care Team Providers Care Labor Employment Associate Name Role Phone Unavailable Primary Care Provider Unavailabl e Encounter Details Date Type Department Care Team (Late st Contact Info) Description 06/23/2019 Transcribed Document [facility] [place] [place] [facility] [place] [address] ProviderMariela MD [address] [place] [address] Social History Tobacco Use Types Packs/Day [...] Conversion Note - Historical ProviderMD - 06/23/2019 11:43 AM CDT Treatment Intervention, OT Entered On: 06/24/2019 12:40 EDT Performed On: 06/24/2019 8:49 EDT by CHAY MOSER OTR/Bartolo General Information, OT Visit Type, OT [...] assistance (Comment: x2 for safety [CHAY MOSER MARY/Bartolo - 06/24/2019 12:31 EDT] ) CHAY MOSER OTR/L - 06/24/2019 12:31 EDT Cognitive Treatment, OT Orientation : Oriented x 4 CHAY MOSER MARY/Bartolo - 06/24/2019 12:31 EDT Education OT Occupational Therapy Education Grid Activity of Daily Living Training : Verbalizes understanding, Returns demonstration Functional Mobility Training : Verbalizes understanding, Returns demonstration Role of Occupational Therapy : Verbalizes understanding CHAY MOSER VAHIDJake/Bartolo - 06/24/2019 12:31 EDT Plan of Care, OT OT Tx Plan/Goals Established w Patient : Yes CHAY MOSER MARYPiedadBartolo - 06/24/2019 12:31 EDT Custodial Goals, OT Other LTG Grid Goal #1 [...] : Nsg notified after session. CHAY MOSER OTR/Bartolo - 06/24/2019 12:31 EDT Image 1 - Images currently included in the form version of this document have not been included in the text rendition version of the form. [facility] OT Charges OT Selfcare/Hm Mgmt Ea 15 Min : 3 CHAY MOSER OTR/Bartolo - 06/24/2019 12:31 EDT documented in this encounter Plan of Treatment Not on file documented as of this encounter Visit Diagnoses Not on filedocumented in this encounter
--- OUTSIDE RECORDS SUMMARY | 2024-08-30 07:36 | XMS_ITS | Encounter Summary ---
Author Organization [employer] ([place], [place], [place], [place]) Address [address] [place] [address] Care Team Providers Care Auditor Name Role Phone Unavailable Primary Care Provider Unavailabl e Encounter Details Date Type Department Care Team (Late st Contact Info) Description 07/07/2019 Transcribed Document [facility] [place] [facility] [place] [address] ProviderMariela MD [address] [place] [id number] Social History Tobacco Use Types Packs/Day [...] Cerner Conversion Note - Mariela ProviderMD - 07/07/2019 10:02 AM CDT Patient: SOFIA GILL Age: 79 years Sex: Female : 1940 Associated Diagnoses: None Author: CHRISSY HENDERSON, PharmD, BCPS HPI: 06/15 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
--- OUTSIDE RECORDS SUMMARY | 2024-08-30 07:36 | XMS_ITS | Clinical Summary ---
Author Organization [employer] ([place], [place], [place], [place]) Address [address] [place] [address] Care Team Providers Care Transplanter Orchid Name Role Phone Unavailable Primary Care Provider [...]
--- OUTSIDE RECORDS SUMMARY | 2024-08-30 07:36 | XMS_ITS | Encounter Summary ---
Author Organization [employer] ([place], [place], [place], [place]) Address [address] [place] [address] Care Team Providers Care Patient Intake Coordinator Name Role Phone Unavailable Primary Care Provider Unavailabl e Encounter Details Date Type Department Care Team (Late st Contact Info) Description 07/19/2019 Transcribed Document [facility] [place] [facility] [place] [address] ProviderMariela MD [address] [place] [id number] Social History Tobacco Use Types Packs/Day Years [...] Note : 07/19/2019 Discharge summary faxed to [facility] Medicare. Auth#[id number]. Care Management Note Report : СВЕТЛАНА WANG - 07/19/19 09:16:16 07/19/2019 Patient went to appointment with Dr. Saenz yesterday, came back with a follow-up appointment scheduled for 08/17/2019 @ 4670. СВЕТЛАНА WANG - 07/17/19 13:41:45 07/17/2019 Call received from Tati Erickson [facility], with approval for LTAC services. Last covered date 07/18/2019 with anticipated DC on 07/19/2019. Please fax DC summary on date of discharge. Auth#[id number]. СВЕТЛАНА WANG - 07/17/19 11:32:16 07/17/[address] Snyder (ID), he is in agreement to discharge to SNF on Wednesday, he would like for her to follow-up with the consulting ID (Dr. Stock) in 1 week upon discharge. TELEHEALTH appointment scheduled with Dr. Stock for 07/25/2019 @ 1600. [facility] will call Lexy to facilitate this visit. СВЕТЛАНА WANG - 07/17/19 10:32:31 07/17/2019 faxed clinical review the [facility] at [phone] to request approval for extended ltac services. Auth#[id number], awaiting approval. CM/Discharge plan attached to review. PEDRITO WANGLESPeterson - 07/17/19 09:06:05 07/17/[address] Jaffe's progress note, yahaira may be removed if okay with Dr. Saenz's office. Per our WOCN, Dr. Saenz's office said they need to see her before they make that decision. Appt scheduled for tomorrow, 07/18/2019 @ 1415; [facility] round-trip transport scheduled for 1315 pick-up ([id number]). Spoke with Lexy Valdez, they have not yet began the patient's insurance preauth, they will today, and be ready to admit on Wednesday. Dr. Jaffe notified and in agreement. [facility] rescheduled for discharge 07/19/2019 @ 1400 ([id number]). YOANNA ARAUJO RN - 07/14/19 15:41:31 Yoanna Araujo 07/13/2019 1500 - patient has accepted bed offer at [facility], she will be transported on WednesdayJuly 16 at 2pm by [facility] Confirmation # [id number]. She declined the bed offer at [facility]. Dr. Jaffe notified of discharge plan. YOANNA ARAUJO RN - 07/13/19 14:37:44 Yoanna Araujo 07/13/2019 1400 received call from Ratna with [facility] offering patient a bed, Received call from Isabelle with [facility] she is looking at patient and needed a current height and weight. Still waiting to see if any other bed offers come through. I also sent referral to [facility]. YOANNA ARAUJO RN - 07/13/19 11:04:03 Yoanna Araujo 07/13/2019 1100 faxed out referral for placement for patient to [facility], [facility] Awaiting call backs. СВЕТЛАНА WANG - 07/12/19 12:19:17 07/12/2019 Fax received from [facility] with approval for LTAC services with a request for updated discharge plans and clinical info to support needs if not discharged. Auth#[id number]. Clinical review or discharge summary to be faxed by 07/17/2019. YOANNA ARAUJO RN - 07/12/19 08:39:48 Yoanna Araujo 07/12/2019 0830 - faxed clinical review the [facility] at [phone] to request approval for extended ltac services. Auth#[id number], awaiting approval. YOANNA ARAUJO RN - 06/29/19 [...] health and she has been to the [place] [facility] in the past. She has the following equipment at home: wheel chair, walker, cane and shower chair. Her discharge plan is to go to rehab prior to returning home. PCP: Flavia MARQUEZ [facility] [place] [phone] Theatrical Scenic Designer: Dr. Shemar Barger [phone] Clemente Del Rio MD - Rheumatology - [address] [place] [address] Preferences: Home Health: [facility]: no preferences DME: [facility] - [address], [place] [address] Shelter: [facility] facility: no preferences Will continue to monitor patient for anticipated discharge needs YOANNA ARAUJO, RN - 06/29/19 08:30:20 Yoanna Araujo 06/29/2019 0830 received fax from [facility] with approval for extended ltac coverage with next clinical review due on 07/12/2019. Auth#[id number]. Will continue to follow for anticipated discharge needs. YOANNA ARAUJO RN - 06/28/19 08:35:06 Yoanna Araujo 06/28/2019 0830 Faxed clinical review to [facility] at to request approval for extended Ltac services. Auth#[id number]. Pending Approval. Documentation Status Complete : Yes СВЕТЛАНА WANG - 07/19/2019 14:40 EDT documented in this encounter Plan of Treatment Not on file documented as of this encounter Visit Diagnoses Not on filedocumented in this encounter
--- OUTSIDE RECORDS SUMMARY | 2024-08-30 07:36 | XMS_ITS | Encounter Summary ---
Author Organization [employer] ([place], [place], [place], [place]) Address [address] [place] [address] Care Team Providers Care Emission Technician Name Role Phone Unavailable Primary Care Provider Unavailabl e Encounter Details Date Type Department Care Team (Late st Contact Info) Description 07/18/2019 Transcribed Document [facility] [place] [facility] [place] [address] ProviderMariela MD [address] [place] [address] Social History Tobacco Use Types Packs/Day [...]
--- OUTSIDE RECORDS SUMMARY | 2024-08-30 07:36 | XMS_ITS | Data Portability ---
Author Organization [facility] RADHA Bell MODOC CLOSED Address [address] [place] [address] Assessment No assessment recorded. Plan of Treatment Reminders Order Date Submit Date Provider Last Modified By Organization Details Last Modified Time Details Appointments None recorded. Lab urinalysis panel, auto 2023 024 [facility], [address], [place], [address], 4 08:06:03 urinalysis , dipstick, auto 2017 018 [facility], [address], [place], [address], 8 19:59:53 urinalysis , dipstick, auto 2017 018 [facility], [address], [place], [address], 8 06:37:24 Referral None recorded. Procedures None recorded. Surgeries cystoscopy (SURG) 2023 024 [email or web address] [facility], [address], [place], [address], 4 16:22:49 Imaging US, retroperit oneum, limited - US KIDNEY BILAT WITHOUT BLADDER PLEASE CONTACT SOFIA BARLOW @ 2023 024 [facility] ([facility] [place] [facility]), [address], [place], [address], 4 15:11:50 CT, abdomen + pelvis, w/wo contrast 2023 024 [facility], [address], [place], [address], 4 14:46:31 US, retroperit oneum, limited - Bilateral Kidney Ultra Sound 2017 019 [facility], [address], [place], [address], 0 05:03:01 US, retroperit oneum, limited 2017 018 [facility], [address] [place], [address], 8 16:10:42 Medication Orders None recorded. Patient TargetsNo targets recorded. Patient Instructions Encounter Date Encounter Id Patient Instructions Last Modified By Organization Details Last Modified Time 07/12/2017 [id number] I counseled the patient that she does not have any malignant appearing cysts. We will plan for follow-up in 6 months with renal ultrasound. We'll plan for renal mass protocol CT scan if there are significant changes on ultrasound follow-up. [email or web address] Not available 07/13/2017 06:37:45 02/14/2018 [id number] Renal cysts appear benign and stable [email or web address] Not available 02/22/2018 20:00:22 11/15/2023 [id number] learning about depression [email or web address] Not available 11/24/2023 08:05:59 Reason for Referral None Reported. Results Created Date Observation Date Name Description Value Unit Range Abnormal Flag Note LastModifiedBy Organization Detail LastModifiedTime 07/13/19 18 07/12/2017 urina lysis , dipst ick, auto Unknown Analyte Yellow Not Available [facility] [address], [place], [address], 07/12/2017 09:28:59 07/13/19 18 07/12/2017 urina lysis , dipst ick, auto Unknown Analyte Clear Not Available [facility] [address] [facility] [address], [place], [address], 07/12/2017 09:28:59 07/13/19 18 07/12/2017 urina lysis , dipst ick, auto Unknown Analyte 1.015 Not Available [facility] [address] [facility] [address], [place], [address], 07/12/2017 09:28:59 07/13/19 18 07/12/2017 urina lysis , dipst ick, auto Unknown Analyte 5.0 Not Available [facility] [address] [place] [address] [address], [place], [address], 07/12/2017 09:28:59 07/13/19 18 07/12/2017 urina lysis , dipst ick, auto Unknown Analyte Negati ve Not Available [facility] [address] [facility] [address], [place], [address], 07/12/2017 09:28:59 07/13/19 18 07/12/2017 urina lysis , dipst ick, auto Unknown Analyte Negati ve Not Available [facility] [address] [facility] [address], [place], [address], 07/12/2017 09:28:59 07/13/19 18 07/12/2017 urina lysis , dipst ick, auto Unknown Analyte Negtiv e Not Available [facility] [address], [place], [address], 07/12/2017 09:28:59 07/13/19 18 07/12/2017 urina lysis , dipst ick, auto Unknown Analyte Normal Not Available [facility] [address], [place], [address], 07/12/2017 09:28:59 07/13/19 18 07/12/2017 urina lysis , dipst ick, auto Unknown Analyte Negati ve Not Available [facility] [address], [place], [address], 07/12/2017 09:28:59 07/13/19 18 07/12/2017 urina lysis , dipst ick, auto Unknown Analyte Normal Not Available [facility] [address], [place], [address], 07/12/2017 09:28:59 07/13/19 18 07/12/2017 urina lysis , dipst ick, auto Unknown Analyte Negati ve Not Available [facility] [address], [place], [address], 07/12/2017 09:28:59 07/13/19 18 07/12/2017 urina lysis , dipst ick, auto Unknown Analyte Negati ve Not Available [facility] [address], [place], [address], 07/12/2017 09:28:59 07/13/19 18 07/12/2017 urina lysis , dipst ick, auto Unknown Analyte Clean Catch Not Available [facility] [address], [place], [address], 07/12/2017 09:28:59 07/13/19 18 07/12/2017 urina lysis , dipst ick, auto Unknown Analyte Automa avery Not Available [facility] [address], [place], [address], 07/12/2017 09:28:59 02/15/20 18 02/14/2018 urina lysis , dipst ick, auto Unknown Analyte Yellow Not Available [facility] [address], [place], [address], 02/14/2018 12:19:32 02/15/20 18 02/14/2018 urina lysis , dipst ick, auto Unknown Analyte Clear Not Available [facility] [address], [place], [address], 02/14/2018 12:19:32 02/15/20 18 02/14/2018 urina lysis , dipst ick, auto Unknown Analyte 1.010 Not Available [facility] [address], [place], [address], 02/14/2018 12:19:32 02/15/20 18 02/14/2018 urina lysis , dipst ick, auto Unknown Analyte 1.003 - 1.035 Not Available [facility] [address], [place], [address], 02/14/2018 12:19:32 02/15/20 18 02/14/2018 urina lysis , dipst ick, auto Unknown Analyte 8.0 Not Available [facility] [address], [place], [address], 02/14/2018 12:19:32 02/15/20 18 02/14/2018 urina lysis , dipst ick, auto Unknown Analyte 5.0 - 8.0 Not Available [facility] [address], [place], [address], 02/14/2018 12:19:32 02/15/20 18 02/14/2018 urina lysis , dipst ick, auto Unknown Analyte Negati ve Not Available [facility] [address], [place], [address], 02/14/2018 12:19:32 02/15/20 18 02/14/2018 urina lysis , dipst ick, auto Unknown Analyte Negati ve Not Available [facility] [address], [place], [address], 02/14/2018 12:19:32 02/15/20 18 02/14/2018 urina lysis , dipst ick, auto Unknown Analyte Negati ve Not Available [facility] [address], [place], [address], 02/14/2018 12:19:32 02/15/20 18 02/14/2018 urina lysis , dipst ick, auto Unknown Analyte Negati ve Not Available [facility] [address], [place], [address], 02/14/2018 12:19:32 02/15/20 18 02/14/2018 urina lysis , dipst ick, auto Unknown Analyte Negtiv e Not Available [facility] [address], [place], [address], 02/14/2018 12:19:32 02/15/20 18 02/14/2018 urina lysis , dipst ick, auto Unknown Analyte Negati ve - Trace Not Available [facility] [address], [place], [address], 02/14/2018 12:19:32 02/15/20 18 02/14/2018 urina lysis , dipst ick, auto Unknown Analyte Normal Not Available [facility] [address], [place], [address], 02/14/2018 12:19:32 02/15/20 18 02/14/2018 urina lysis , dipst ick, auto Unknown Analyte Normal Not Available [facility] [address], [place], [address], 02/14/2018 12:19:32 02/15/20 18 02/14/2018 urina lysis , dipst ick, auto Unknown Analyte Negati ve Not Available [facility] [address], [place], [address], 02/14/2018 12:19:32 02/15/20 18 02/14/2018 urina lysis , dipst ick, auto Unknown Analyte Negati ve Not Available [facility] [address], [place], [address], 02/14/2018 12:19:32 12/17/20 18 02/14/2018 urina lysis , dipst ick, auto Unknown Analyte Normal Not Available [facility] [address], [place], [address], 02/14/2018 12:19:32 02/15/20 18 02/14/2018 urina lysis , dipst ick, auto Unknown Analyte Normal - 1mg/dl Not Available [facility] [address], [place], [address], 02/14/2018 12:19:32 02/15/20 18 02/14/2018 urina lysis , dipst ick, auto Unknown Analyte Negati ve Not Available [facility] [address], [place], [address], 02/14/2018 12:19:32 02/15/20 18 02/14/2018 urina lysis , dipst ick, auto Unknown Analyte Negati ve Not Available [facility] [address], [place], [address], 02/14/2018 12:19:32 02/15/20 18 02/14/2018 urina lysis , dipst ick, auto Unknown Analyte Negati ve Not Available [facility] [address], [place], [address], 02/14/2018 12:19:32 02/15/20 18 02/14/2018 urina lysis , dipst ick, auto Unknown Analyte Negati ve Not Available [facility] [address], [place], [address], 02/14/2018 12:19:32 02/15/20 18 02/14/2018 urina lysis , dipst ick, auto Unknown Analyte Clean Catch Not Available [facility] [address], [place], [address], 02/14/2018 12:19:32 02/15/20 18 02/14/2018 urina lysis , dipst ick, auto Unknown Analyte Automa avery Not Available [facility] [address] [facility], [place], [address], 02/14/2018 12:19:32 05/12/19 24 05/12/2023 urina lysis panel , auto Unknown Analyte Clean Catch Not Available [facility] [address] [place] [address], [address], 05/12/2023 15:17:03 05/12/19 24 05/12/2023 urina lysis panel , auto Unknown Analyte Yellow Not Available [facility] [address] [place] [address], [address], 05/12/2023 15:17:03 05/12/19 24 05/12/2023 urina lysis panel , auto Unknown Analyte Clear Not Available [facility] [address] [place] [address], [address], 05/12/2023 15:17:03 05/12/19 24 05/12/2023 urina lysis panel , auto Unknown Analyte 1.[address] [facility] [address] [place] [address], [address], 05/12/2023 15:17:03 05/12/19 24 05/12/2023 urina lysis panel , auto Unknown Analyte 1.003- 1.035 Not Available [facility] [address] [place], [place] [address], [address], 05/12/2023 15:17:03 05/12/19 24 05/12/2023 urina lysis panel , auto Unknown Analyte 7.[address] [facility] [address] [place] [address], [place], [address], 05/12/2023 15:17:03 05/12/19 24 05/12/2023 urina lysis panel , auto Unknown Analyte 5.0-8. 0 Not Available [facility] [address] [place] [address], [place], [address], 05/12/2023 15:17:03 05/12/19 24 05/12/2023 urina lysis panel , auto Unknown Analyte Negati ve Not Available [facility] [address] [place] [address], [place], [address], 05/12/2023 15:17:03 05/12/19 24 05/12/2023 urina lysis panel , auto Unknown Analyte Negati ve Not Available [facility] [address] [place] [address], [place], [address], 05/12/2023 15:17:03 05/12/19 24 05/12/2023 urina lysis panel , auto Unknown Analyte Negati ve Not Available [facility] [address] [place] [address], [address], 05/12/2023 15:17:03 05/12/19 24 05/12/2023 urina lysis panel , auto Unknown Analyte Negati ve Not Available [facility] [address] [place] [address], [address], 05/12/2023 15:17:03 05/12/19 24 05/12/2023 urina lysis panel , auto Unknown Analyte Negati ve Not Available [facility] [address] [place] [address], [place], [address], 05/12/2023 15:17:03 05/12/19 24 05/12/2023 urina lysis panel , auto Unknown Analyte Negati ve Not Available [facility] [address] [place] [address], [place], [address], 05/12/2023 15:17:03 05/12/19 24 05/12/2023 urina lysis panel , auto Unknown Analyte Normal Not Available [facility] [address] [place] [address], [place], [address], 05/12/2023 15:17:03 05/12/19 24 05/12/2023 urina lysis panel , auto Unknown Analyte Normal Not Available [facility] [address] [place] [address], [address], 05/12/2023 15:17:03 05/12/19 24 05/12/2023 urina lysis panel , auto Unknown Analyte Negati ve Not Available [facility] [address] [place] [address], [address], 05/12/2023 15:17:03 05/12/19 24 05/12/2023 urina lysis panel , auto Unknown Analyte Negati ve Not Available [facility] [address] [place] [address], [address], 05/12/2023 15:17:03 05/12/19 24 05/12/2023 urina lysis panel , auto Unknown Analyte Normal Not Available [facility] [address] [place] [address], [address], 05/12/2023 15:17:03 05/12/19 24 05/12/2023 urina lysis panel , auto Unknown Analyte Normal 1 mg/dl Not Available [facility] [address] [place] [address], [address], 05/12/2023 15:17:03 05/12/19 24 05/12/2023 urina lysis panel , auto Unknown Analyte Negati ve Not Available [facility] [address] [facility] [address], [place], [address], 05/12/2023 15:17:03 05/12/19 24 05/12/2023 urina lysis panel , auto Unknown Analyte Negati ve Not Available [facility] [address] [address], [place], [address], 05/12/2023 15:17:03 05/12/19 24 05/12/2023 urina lysis panel , auto Unknown Analyte Negati ve Not Available [facility] [address] [address], [place], [address], 05/12/2023 15:17:03 05/12/19 24 05/12/2023 urina lysis panel , auto Unknown Analyte Negati ve Not Available [facility] [address] [place] [address], [place], [address], 05/12/2023 15:17:03 11/15/19 24 11/15/2023 urina lysis panel , auto Unknown Analyte Clean Catch Not Available [facility] [address], [place], [address], 11/15/2023 11:49:15 11/15/19 24 11/15/2023 urina lysis panel , auto Unknown Analyte Yellow Not Available [facility] [address], [place], [address], 11/15/2023 11:49:15 11/15/19 24 11/15/2023 urina lysis panel , auto Unknown Analyte Clear Not Available [facility] [address], [place], [address], 11/15/2023 11:49:15 11/15/19 24 11/15/2023 urina lysis panel , auto Unknown Analyte 1.005 Not Available [facility] [address], [place], [address], 11/15/2023 11:49:15 11/15/19 24 11/15/2023 urina lysis panel , auto Unknown Analyte 1.003- 1.035 Not Available [facility] [address], [place], [address], 11/15/2023 11:49:15 11/15/19 24 11/15/2023 urina lysis panel , auto Unknown Analyte 5.0 Not Available [facility] [address], [place], [address], 11/15/2023 11:49:15 11/15/19 24 11/15/2023 urina lysis panel , auto Unknown Analyte 5.0-8. 0 Not Available [facility] [address], [place], [address], 11/15/2023 11:49:15 11/15/19 24 11/15/2023 urina lysis panel , auto Unknown Analyte 25 Carlos/ul Trace Not Available [facility] [address], [place], [address], 11/15/2023 11:49:15 11/15/19 24 11/15/2023 urina lysis panel , auto Unknown Analyte Negati ve Not Available [facility] [address], [place], [address], 11/15/2023 11:49:15 11/15/19 24 11/15/2023 urina lysis panel , auto Unknown Analyte Negati ve Not Available [facility] [address], [place], [address], 11/15/2023 11:49:15 11/15/19 24 11/15/2023 urina lysis panel , auto Unknown Analyte Negati ve Not Available [facility] [address], [place], [address], 11/15/2023 11:49:15 11/15/19 24 11/15/2023 urina lysis panel , auto Unknown Analyte Negati ve Not Available [facility] [address], [place], [address], 11/15/2023 11:49:15 11/15/19 24 11/15/2023 urina lysis panel , auto Unknown Analyte Negati ve Not Available [facility] [address], [place], [address], 11/15/2023 11:49:15 11/15/19 24 11/15/2023 urina lysis panel , auto Unknown Analyte Normal Not Available [facility] [address], [place], [address], 11/15/2023 11:49:15 11/15/19 24 11/15/2023 urina lysis panel , auto Unknown Analyte Normal Not Available [facility] [address], [place], [address], 11/15/2023 11:49:15 11/15/19 24 11/15/2023 urina lysis panel , auto Unknown Analyte Negati ve Not Available [facility] [address], [place], [address], 11/15/2023 11:49:15 11/15/19 24 11/15/2023 urina lysis panel , auto Unknown Analyte Negati ve Not Available [facility] [address], [place], [address], 11/15/2023 11:49:15 11/15/19 24 11/15/2023 urina lysis panel , auto Unknown Analyte Normal Not Available [facility] [address], [place], [address], 11/15/2023 11:49:15 11/15/19 24 11/15/2023 urina lysis panel , auto Unknown Analyte Normal 1 mg/dl Not Available [facility] [address], [place], [address], 11/15/2023 11:49:15 11/15/19 24 11/15/2023 urina lysis panel , auto Unknown Analyte Negati ve Not Available [facility] [address], [place], [address], 11/15/2023 11:49:15 11/15/19 24 11/15/2023 urina lysis panel , auto Unknown Analyte Negati ve Not Available [facility] [address] [facility] [address], [place], [address], 11/15/2023 11:49:15 11/15/19 24 11/15/2023 urina lysis panel , auto Unknown Analyte Negati ve Not Available [facility] [address] [facility] [address], [place], [address], 11/15/2023 11:49:15 11/15/19 24 11/15/2023 urina lysis panel , auto Unknown Analyte Negati ve Not Available [facility] [address] [facility] [address], [place], [address], 11/15/2023 11:49:15 07/01/19 18 06/29/2017 US, retro perit oneum , limit ed No observ ation record ed. [facility] [address] [facility] [address], [place], [address], 07/13/2017 06:38:55 07/09/19 18 07/07/2017 CT, abdom en, w/wo contr ast No observ ation record ed. [facility] [address] [facility] [address], [place], [address], 07/13/2017 06:38:54 02/09/20 18 02/08/2018 US, retro perit oneum , limit ed [facility] [address] [facility] [place] [address] Patien t Name: SOFIA toney : 943 Patikamran t 4 Orderi ng [facility] er: SHIRLEY MERA JR EXAM DATE: [...] Johnnie Hawkins MD on 2017 4:05 PM [facility] [address] [place] [address], [place], [address], 02/22/2018 19:58:21 04/07/19 24 02/09/2023 US, renal No observ ation record ed. [facility] Not Available 2023 13:32:35 05/12/19 24 05/12/2023 CT, abdom en + pelvi s, w/wo contr ast [facility] [address] [facility] [place] [address] Patien t Name: SOFIA toney : 943 Patikamran toney 4 Orderi ng Provid er: SHIRLEY MARTINEZ [facility] EXAM DATE: 2023 EXAM: CT ABD/PE LVIS W/WO CONTRA ST CLINIC AL INFORM ATION: Episod es of hematu dmo 2 months ago. TECHNI QUE: A baseli [...] 350 (1 x 100 mL bottle of [facility] [id number] 1414-9 [id number]). 0 was wasted and discar [...] Hawkins MD on 024 2:41 PM michelle [facility] [address] [facility], [place], [address], 05/14/2023 16:38:38 11/30/19 24 11/30/2023 US, retro perit oneum , limit ed No observ ation record ed. [email or web address] [facility] (Med Record) [address], [place], [address], 12/01/2023 09:40:10 06/08/19 25 06/06/2024 US, retro perit oneum , limit ed No observ ation record ed. [email or web address] Not Available 05/30 18:13:29 Result Notes Documentation Provider Name and Address Organization Details Recorded Time Ct, Abdomen + Pelvis, W/wo Contrast : [facility] [address] [place] [address] Patient Name: SOFIA BARLOW Patient : 1940 Patient Ordering Provider: SHIRLEY PARR JR EXAM DATE: 05/12/2023 EXAM: CT ABD/PELVIS W/WO CONTRAST CLINICAL INFORMATION: Episodes of hematuria 2 months ago. TECHNIQUE: A baseline serum creatinine with eGFR was obtained prior to injection of contrast medium due to the patients risk factors for MARU. Calculated eGFR at time of exam was GFR [address] images of the abdomen were obtained before and in the combined nephrographic and excretory phases after a split injection of 100 mL Omnipaque 350 (1 x 100 mL bottle of [facility] [id number]). 0 was wasted and discarded. Bowel was marked with water. COMPARISON: No previous images are available for comparison. FINDINGS ON CT ABDOMEN: LOWER THORAX: Lungs are clear. Heart shows coronary artery and aortic valve calcifications with normal ascending aortic caliber. UPPER ABDOMINAL ORGANS: Liver, Gallbladder, Spleen, Pancreas, Adrenals are normal. 1-4.7 cm simple cysts are seen in both kidneys. BOWEL AND MESENTERY: Evidence of previous lap band surgery of the stomach is noted. Small bowel and colon are normal. No mesenteric lymphadenopathy or peritoneal free fluid. RETROPERITONEUM: Abdominal aorta shows atherosclerotic calcifications with normal caliber. 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 No retroperitoneal lymphadenopathy. ABDOMINAL WALL AND SKELETAL STRUCTURES: Degenerative changes are seen in the lumbar spine. Abdominal wall shows a moderate-sized umbilical hernia containing omental fat. Fascial defect measures 1 cm. The hernial sac measures 6.[address] PELVIS: PELVIC CAVITY: Urinary bladder and rectosigmoid are normal. Uterus is atrophic. Ovaries are not visualized. No pelvic or inguinal lymphadenopathy, mass or fluid. MUSCULOSKELETAL STRUCTURES: Pelvic musculoskeletal structures are normal. COMBINED IMPRESSION: 1. No CT evidence of urinary tract stone or upper urinary tract neoplasm. 2. Simple renal cysts. 3. Moderate-sized umbilical hernia. 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 Procedures Surgical History Date Name Laterality Status Provider Name and Address Organization Details Recorded Time Cystoscopy - female completed SHIRLEY PARR JR, MD [address] [place] [address], [address], [facility] 05/12/2023 13:33:18 repair of shoulder completed [facility] 03/31/2023 10:33:39 maintenance of gastric band completed [facility] 03/31/2023 10:34:53 operative procedure on knee completed [facility] 03/31/2023 10:37:07 Imaging Results None recorded. Procedure Notes None recorded. Medical Equipment None Reported. Allergies Allergen ID Allergen Name Allergen Category Reaction Reaction Severity Criticality Documentation Date Start Date Code Code System Note Provider Name and Address Organization Details Recorded Time 18680930 Product containin g penicilli n (product) medicatio n Not available Not available Not available 01/23/20162012 78149 8001 SNOMED Comme nt: Creat ed By: Dayna Escudero ;Crea avery Date: 2012 10:39 :32 AM; Not Available [facility] 6 11:56:53 626841 etodolac medicatio n Not available Not available Not available 01/23/20162012 83305 RxNorm Comme nt: Creat ed By: Dayna Escudero ;Crea avery Date: 2012 10:40 :22 AM; Not Available [facility] 6 11:56:53 742420 Bextra medicatio n Not available Not available Not available 01/23/20162012 00611 0 RxNorm Comme nt: Creat ed By: Dayna Escudero ;Crea avery Date: 2012 10:40 :41 AM; Not Available [facility] 6 11:56:53 586196 Aleve medicatio n Not available Not available Not available 01/23/20162012 17847 1 RxNorm Comme nt: Creat ed By: Dayna Escudero ;Meira avery Date: 2012 10:40 :02 AM; Not Available [facility] 6 11:56:53 192230 Substance with sulfonami de structure and antibacte rial mechanism of action (substanc e) medicatio n Not available Not available Not available 01/23/20162012 45377 8003 SNOMED Comme nt: Creat ed By: Dayna Escudero ;Crea avery Date: 2012 10:41 :00 AM; Not Available [facility] 6 11:56:53 Medications Name Sig Start [...] Available Not Available Nasonex 50 mcg/actuati on [place] Daily active Instructio ns: each nostril;Fr equency: [...] Updated DateTime 03/31/2023 149.86 cm 40.4 kg/m2 56446.47 g Adriana Looney [facility] 03/31/2023 10:29:44 Date Recorded Body height Body mass index (BMI) Body weight Heart rate Systolic blood pressure Diastolic blood pressure Provider Name and Address Organization Details Last Updated DateTime 8 149.86 cm 40.6 kg/m2 34809.0 7 g 80 /min 136 mm[Hg] 83 mm[Hg] Nasima Hillman [facility] 8 09:03:19 Date Recorded Body height Body mass index (BMI) Body weight Provider Name and Address Organization Details Last Updated DateTime 11/15/2023 149.86 cm 40.4 kg/m2 09556.47 g Adriana Looney [facility] 11/15/2023 11:37:28 Date Recorded Body height Body mass index (BMI) Body weight Heart rate Systolic blood pressure Diastolic blood pressure Provider Name and Address Organization Details Last Updated DateTime 8 149.86 cm 42.4 kg/m2 40712.4 g 92 /min 124 mm[Hg] 75 mm[Hg] Tika Toney [facility] 8 12:18:54 Social History Question Answer Notes LastModified by Organizat ion Details LastModified Time Tobacco Smoking Status Never Smoker Tika Toney [facility] 06/24/2017 11:30:13 Marital Status [email or web address] Informatio n not available 06/24/2017 What Was The Date Of Your Most Recent Tobacco Screening? 11/15/2023 [email or web address] Information not available 11/15/2023 Sex: Unknown Functional Status Question Answer Note LastModified by Organization D etails LastModified Time What is your level of alcohol consumption? None [email or web address] Information not available 06/24/2017 Mental Status None recorded. Family History Relationship Description Onset Age of this Age Resolved Age Notes LastModified by Organization Details LastModified Time Father Family history of malignant neoplasm [email or web address] Not available 06/24 11:30:09 Medical History Condition [...] SNOMED-CT Code Diagnosis ICD10 Code Diagnosis Note [id number] MD ADALID MARLEY JR, [facility] [address] [place] [address] 06/24/2017 10:49:15 06/24/2017 13:02:56 Cyst of kidney 947216849 N28.1 [id number] MD ADALID MARLEY JR, [facility] [address] [place] [address] 07/12/2017 08:33:35 07/12/2017 11:53:10 Acquired renal cystic disease 356472684 N28.1 [id number] SHIRLEY PARR JR, MD [facility] [address] [address] 02/14/2018 11:08:51 02/14/2018 12:25:49 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 [id number] SHIRLEY PARR JR, MD [address] [place] [address] 03/31/2023 09:48:35 04/01/2023 05:23:51 Earnest hematuria 017400590 R31.0 Acquired r enal cystic disease 276437117 N28.1 [id number] SHIRLEY PARR JR, MD SURGERY SCHEDULE [address] [place] [address] 05/12/2023 12:06:17 05/12/2023 12:07:10 Earnest hematuria 583918692 R31.0 Acquired r enal cystic disease 560267285 N28.1 [id number] SHIRLEY PARR JR, MD [facility] [address] [place] [address] 11/15/2023 11:10:42 11/15/2023 12:19:04 Acquired renal cystic disease 410903284 N28.1 Health Concerns Section Related Observation LastModified by Organization Detai ls LastModified Time None Recorded Concern Status LastModified by Organization Details LastModified Time None Recorded Advance Directives Directive None Recorded Payers Insurance Date Sequence Insurance Name Policy Number Policy Lucero Covered Member ID Lucero Member ID Guarantor Name 06/30/2024 1 [facility] (MEDICARE REPLACEMENT/A DVANTAGE - PPO) [id number] Sofia Barlow [id number] Sofia Barlow Notes Date Note Type Note [...] primary care physician. MD Praveen MARLEY [place], [address], [facility] 07/13/2017 06:39:02 02/14/2018 text/html patient [...] cysts, right kidney. SHIRLEY PARR JR, MD [facility] [place], [address], [facility] 02/22/2018 20:01:55 03/31/2023 text/html patient [...] She denies occupational exposures. [place], [address], [facility] 03/31/2023 18:16:51 05/12/2023 text/html patient [...] denies occupational exposures. SHIRLEY PARR JR, MD [facility] [place], [address], [facility] 05/12/2023 13:37:46 11/15/2023 text/html patient [...] simple renal cysts. SHIRLEY PARR JR, MD [address] [place] [address] [place], [address], [facility] 11/24/2023 08:06:03 OBGyn Episode No OBEpisode recorded.
--- OUTSIDE RECORDS SUMMARY | 2024-08-30 07:36 | XMS_ITS | Encounter Summary ---
Author Organization [employer] ([place], [place], [place], [place]) Address [address] [place] [address] Care Team Providers Care Material Planner Name Role Phone Unavailable Primary Care Provider Unavailabl e Encounter Details Date Type Department Care Team (Late st Contact Info) Description 07/18/2019 Transcribed Document [facility] Family Medicine [facility] [place] [address] ProviderMariela MD [address] [place] [address] Social History Tobacco Use Types Packs/Day Years [...]
--- OUTSIDE RECORDS SUMMARY | 2024-08-30 07:36 | XMS_ITS | Encounter Summary ---
Author Organization [employer] ([place], [place], [place], [place]) Address [address] [place] [address] Care Team Providers Care Vending Machine Operator Name Role Phone Unavailable Primary Care Provider Unavailabl e Encounter Details Date Type Department Care Team (Late st Contact Info) Description 07/08/2019 Transcribed Document [facility] Family Medicine [facility] [place] [address] ProviderMariela MD [address] [place] [address] Social History Tobacco Use Types Packs/Day Years [...] Historical ProviderMD - 07/08/2019 2:00 AM CDT Visual Communications Instructor Details Entered On: 07/08/2019 3:22 EDT Performed [...] - 07/08/2019 3:22 EDT Electronically signed by Chantal [facility] Conversion Fuse Cup Expander Cerner at 06/16/2022 8:06 PM CDT documented in this encounter Plan of Treatment Not on file documented as of this encounter Visit Diagnoses Not on filedocumented in this encounter
--- OUTSIDE RECORDS SUMMARY | 2024-08-30 07:36 | XMS_ITS | Encounter Summary ---
Author Organization [employer] ([place], [place], [place], [place]) Address [address] [place] [address] Care Team Providers Care Isobutylene Operator Chief Name Role Phone Unavailable Primary Care Provider Unavailabl e Encounter Details Date Type Department Care Team (Late st Contact Info) Description 07/08/2019 Transcribed Document [facility] [place] [address] ProviderMariela MD [address] [place] [phone] Social History Tobacco Use Types Packs/Day Years [...] Conversion Note - Mariela Gates MD - 07/08/2019 8:50 PM CDT Patient: SOFIA GILL Age: 79 [...] 0.9% 50 mL 2 Gram, IV Piggyback, [id number] cyanocobalamin 1,000 mcg tab 5,000 mcg 5 [...] Oral, Q4H fluticasone 0.05% nasal spray 2 [place], Nostrils Both, BID magnesium hydroxide 8% liq [...] % 25.0 % Lymph # 1.57 x10(3)/uL [place] % 12.1 % HI [place] # 0.76 K/uL Eos % 4.8 % [...]
--- OUTSIDE RECORDS SUMMARY | 2024-08-30 07:36 | XMS_ITS | Encounter Summary ---
Author Organization [employer] ([place], [place], [place], [place]) Address [address] [place] [address] Care Team Providers Care Bread Icer Name Role Phone Unavailable Primary Care Provider Unavailabl e Encounter Details Date Type Department Care Team (Late st Contact Info) Description 07/07/2019 Transcribed Document [facility] Family Medicine [facility] [place] [address] ProviderMariela MD [facility] [place], [place] [phone] Social History Tobacco Use Types Packs/Day Years [...] : 07/05/2019 EDT Interdisciplinary Rounds Participants : manager financial systems, Dietitian, Pharmacist, Physical Therapy, Other: WOCN Interdisciplinary [...] PTA BUTLER, RAYLINA - 07/07/2019 13:29 EDT documented in this encounter Plan of Treatment Not on file documented as of this encounter Visit Diagnoses Not on filedocumented in this encounter
--- OUTSIDE RECORDS SUMMARY | 2024-08-30 07:36 | XMS_ITS | Encounter Summary ---
Author Organization [employer] ([place], [place], [place], [place]) Address [address] [place] [address] Care Team Providers Care Ticketing Clerk Name Role Phone Unavailable Primary Care Provider Unavailabl e Encounter Details Date Type Department Care Team (Late st Contact Info) Description 08/22/2020 Transcribed Document [facility] [place] [facility] [place] [address] ProviderMariela MD [address] [place] [address] Social History Tobacco Use Types [...] Historical ProviderMD - 08/22/2020 2:00 AM CDT Handbag Stitcher Details Entered On: 08/22/2020 0:01 EDT Performed [...]
--- OUTSIDE RECORDS SUMMARY | 2024-08-30 07:36 | XMS_ITS | Encounter Summary ---
Author Organization [employer] ([place], [place], [place], [place]) Address [address] [place] [address] Care Team Providers Care Streaming Media Specialist Name Role Phone Unavailable Primary Care Provider Unavailabl e Encounter Details Date Type Department Care Team (Late st Contact Info) Description 08/22/2020 Transcribed Document [facility] [place] [facility] [place] [address] ProviderMariela MD [address] [place] [address] Social History Tobacco Use Types [...] MD orders. Went into pt room to supervisor aircraft maintenance fluids and pt asked her blood type. [...]
--- OUTSIDE RECORDS SUMMARY | 2024-08-30 07:36 | XMS_ITS | Encounter Summary ---
Author Organization [employer] ([place], [place], [place], [place]) Address [address] [place] [address] Care Team Providers Care Internet Security Specialist Name Role Phone Unavailable Primary Care Provider Unavailabl e Encounter Details Date Type Department Care Team (Late st Contact Info) Description 08/22/2020 Transcribed Document [facility] Family Medicine [address] [place] [address] ProviderMariela MD [address] [place] [address] Social History Tobacco Use Types [...]
--- OUTSIDE RECORDS SUMMARY | 2024-08-30 07:36 | XMS_ITS | Encounter Summary ---
Author Organization [employer] ([place], [place], [place], [place]) Address [address] [place] [address] Care Team Providers Care Pet Caregiver Name Role Phone Unavailable Primary Care Provider Unavailabl e Encounter Details Date Type Department Care Team (Late st Contact Info) Description 07/07/2019 Transcribed Document [facility] [place] [address] ProviderMariela MD [address] [place] [phone] Social History Tobacco Use Types Packs/Day Years [...] Conversion Note - Mariela Gates MD - 07/07/2019 3:45 PM CDT Patient: SOFIA GILL Age: 79 [...] 0.9% 50 mL 2 Gram, IV Piggyback, [id number] cyanocobalamin 1,000 mcg tab 5,000 mcg 5 [...] Oral, Q4H fluticasone 0.05% nasal spray 2 [place], Nostrils Both, BID magnesium hydroxide 8% liq [...] % 25.0 % Lymph # 1.57 x10(3)/uL [place] % 12.1 % HI [place] # 0.76 K/uL Eos % 4.8 % [...] % 23.0 % Lymph # 1.50 x10(3)/uL [place] % 12.3 % HI [place] # 0.80 K/uL Eos % 3.7 % [...] Refill(s) fluticasone 50 mcg/inh nasal spray: 2 [place], Nostrils Both, [place], BID, PRN Allergies, 0 Refill(s) furosemide 40 [...]
--- OUTSIDE RECORDS SUMMARY | 2024-08-30 07:36 | XMS_ITS | Encounter Summary ---
Author Organization [employer] ([place], [place], [place], [place]) Address [address] [place] [address] Care Team Providers Care Software Consultant Name Role Phone Unavailable Primary Care Provider Unavailabl e Encounter Details Date Type Department Care Team (Late st Contact Info) Description 06/23/2019 Transcribed Document [facility] Family [place] [facility] [place] [address] ProviderMariela MD [facility] [place] [address] Social History Tobacco Use [...] Conversion Note - Mariela ProviderMD - 06/23/2019 11:41 AM CDT On Going Discharge Planning Entered On: 06/23/2019 11:45 EDT Performed On: 06/23/2019 11:41 EDT by DEBORAH CAMPOS RN-Camp AdvisorJoint Terminal Attack Controller Progress Note Discharge Arrangements : Patient Post-Acute Information Patient Name: SOFIA GILL Gender: Female : 44 Age: 79 Years No Post-Acute Placement(s) Listed No Post-Acute Service(s) Listed No [place] Referral(s) Listed DEBORAH CAMPOS RN-Camp Advisor - 06/23/2019 17:10 EDT Barriers to Discharge Identified : Clinical Condition of Patient, Follow-Up appointments needed Barriers to Discharge Unresolved : Clinical Condition of Patient, Follow-Up appointments needed Patient Offered Choice/Affiliations Explained : No List/Info Provided Pt/Fam/Support Person : Other: N/A Is the Patient Meeting Medical Necessity : Yes Discharge Plan Comment : HAS NOT ROUNDED ON THIS PT TODAY..STEPHANIE Did you Attend Multidisciplinary Rounds? : No DEBORAH CAMPOS RN-Camp Advisor - 06/23/2019 11:41 EDT Narrative Progress Note Narrative Progress Note : RECEIVED CALL FROM [facility] WITH [facility]..PATIENT HAS BEEN ACCEPTED AND THEY WILL HAVE A BED SOMETIME NEXT WEEK..CM WILL CONTINUE TO FOLLOW AND INFORM DR DRIVER OF THE ABOVE..LM SPOKE WITH PT AT BEDSIDE AND SHE IS AWARE THAT L-TACH HAS STARTED A PRECERT AND HOPEFULLY WILL HAVE BED AVAILABLE ON WEDNESDAY PENDING AUTHORIZATION..DR DRIVER AWARE..LM Historical Progress Note : Sent referral to LTACH through [facility]..........MIKE Adam RN-Camp Advisor - 06/21/19 16:57:54 Was planning for AKA, now patient will undergo a total joint revision with I&D. Will continue to follow.............MIKE Adam RN-Camp Advisor - 06/21/19 16:36:10 PICC line placed, Per LID, plan for termite helper IV abx. Surgery scheduled for today................MIKE Adam RN-Camp Advisor - 06/21/19 10:06:05 No MDR this AM with provider. Patient with low-grade fever this AM and throughout the night. LAKA was rescheduled for 06/20 for this reason. CM will continue to follow. Halima Tripathi, EDDIE-CUSTOMER EXPERIENCE ASSOCIATE - 06/20/19 11:50:51 Patient becoming more agitated and confused, refusing to wear oxygen. Patient now on CPAP, WBC increased, BC x2 positive for group b Strep. Dr Saenz to perform AKA tomorrow morning. Will continue to follow..............MIKE Adam RN-Camp Advisor - 06/19/19 11:35:19 DEBORAH CAMPOS RN-Camp Advisor - 06/23/2019 17:10 EDT documented in this encounter Plan of Treatment Not on file documented as of this encounter Visit Diagnoses Not on filedocumented in this encounter
--- OUTSIDE RECORDS SUMMARY | 2024-08-30 07:36 | XMS_ITS | Encounter Summary ---
Author Organization [employer] ([place], [place], [place], [place]) Address [address] [place] [address] Care Team Providers Care Hardboard Factory Worker Name Role Phone Unavailable Primary Care Provider Unavailabl e Encounter Details Date Type Department Care Team (Late st Contact Info) Description 07/19/2019 Transcribed Document [facility] [place] [facility] [place] [address] ProviderMariela MD [address] [place] [phone] Social History Tobacco Use Types Packs/Day Years [...] Note - Mariela Gates MD - 07/19/2019 11:46 AM CDT Patient: SOFIA [...] Tyrell Stock M.D. Admitting and discharging physician, [facility], Dr. Owens, Donna Jaffe M.D. Discharge [...] left total knee arthroplasty was admitted to [facility] with left total knee arthroplasty [...] Dr. Saenz. Patient was then transferred to [facility] to continue her care. During her hospitalization [...] to another lower level of care to intermediate facility. Basic Information Review of Systems Constitutional: [...] 0.9% 100 mL 2 Gram, IV Piggyback, [id number] cyanocobalamin 1,000 mcg tab 5,000 mcg 5 [...] Oral, Q4H fluticasone 0.05% nasal spray 2 [place], Nostrils Both, BID magnesium hydroxide 8% liq [...] 11:43:23 EDT Discharge: Start: T;N, Discharge to: [facility] unit/facility. Diagnosis Chronic venous insufficiency - Discharge, [...] CLINICALLY STABLE AFEBRILE OK TO D/C TO PENITENTIARY FACILITY. Consultants agree with for her discharge. Patient is stable for discharge.. Orders Order Profile (Selected) Prescriptions Prescribed [place] 7.5 mg-325 mg oral tablet: 1 Tab, [...] Refill(s) fluticasone 50 mcg/inh nasal spray: 2 [place], Nostrils Both, [place], BID, PRN Allergies, 0 Refill(s) lisinopril 10 [...]
--- OUTSIDE RECORDS SUMMARY | 2024-08-30 07:37 | XMS_ITS | Encounter Summary ---
Author Organization [employer] ([place], [place], [place], [place]) Address [address] [place] [address] Care Team Providers Care Rn Advice Name Role Phone Unavailable Primary Care Provider Unavailabl e Encounter Details Date Type Department Care Team (Late st Contact Info) Description 06/28/2019 Transcribed Document [facility] [place] [facility] [place] [address] ProviderMariela MD [facility] [place] [address] Social History Tobacco Use Types [...] Conversion Note - Mariela Gates MD - 06/28/2019 9:00 PM CDT Patient: SOFIA [...] Rate 18 (JUN 27 23:00) 18 (JUN 27:) 20 (JUN 27:) SBP 135 (JUN 27:) 115 (JUN 27 08:00) H 153 (JUN 27 19:00) DBP L 52 (JUN 27:) L 51 (JUN 27:00) 64 (JUN 27 16:00) MAP 63 (JUN [...] 26) ALB L 2.4 (JUN 26) Micro: [facility]: 06/15 [facility] Blood cultures positive for group B [...] weekly cbc/crp/cmp and esr monitor for adrs documented in this encounter Plan of Treatment Not on file documented as of this encounter Visit Diagnoses Not on filedocumented in this encounter
--- OUTSIDE RECORDS SUMMARY | 2024-08-30 07:37 | XMS_ITS | Encounter Summary ---
Author Organization [employer] ([place], [place], [place], [place]) Address [address] [place] [address] Care Team Providers Care Carousel Attendant Name Role Phone Unavailable Primary Care Provider Unavailabl e Encounter Details Date Type Department Care Team (Late st Contact Info) Description 06/17/2019 Transcribed Document [facility] [place] [address] ProviderMariela MD [address] [place] [phone] Social History Tobacco Use Types Packs/Day Years Used Date Smoking Tobacco: Never Assessed Comments Unknown Sex and Gender Information Value Date Recorded Sex Assigned at Female 09/02/2021 8:57 PM CDT Legal Sex Female 6:58 PM CDT Gender Identity Female 09/02/2021 8:57 PM CDT Sexual Orientation Not on file documented as of this encounter Miscellaneous Notes * Cerner Conversion Note - Mariela ProviderMD - 06/17/2019 1:46 PM CDT Patient: [...] reportedly did follow up with [facility] office. She reportedly had her left [...] ambulation. Due to this she presented to [facility]. There she had a CT of the [...] orthopedic history she was subsequently transferred to [facility] for further evaluation of the left knee. Blood cultures from [facility] with Group B Strep. Since arrival [...] note: Per Dr. Carlos Wright's note in 2016at despite her penicillin allergy she can tolerate cephalexin and ceftriaxone. Allergies:Allergies (10) Active Reaction amLODIPine None Documented valdecoxib None Documented Bextra Itching etodolac Itching Latex Itching Mobic Itching Naprosyn Itching penicillin Shortness of breath phentermine unknown reaction sulfa drugs Itching Medications:Medications by Classification Antimicrobials cefTRIAXone + Sodium Chloride 0.9% intravenous solution 50 m - 2 Gram, IV Piggyback, [id number], infuse over 30 Minute(s), Routine Immunology influenza virus vaccine, inactivated - 0.5 mL, IntraMuscular, Inj, [id number] Cardiovascular cloNIDine - 0.1 mg, Oral, Tab, [...] (fluticasone 50 mcg/inh nasal spray) - 2 [place], Nostrils Both, [place], BID, PRN for Allergies, Routine Pain Meds [...] FEMORAL W SYNTH SUB, CEMENT, OPEN (10/26/2016), [place] filter, lap band gastric bypass, left knee [...] 16) ALB L 2.0 (JUN 16) Micro: [facility]: 06/15 [facility] Blood cultures positive for group [...] blood cultures and synovial fluid [place] [facility] [place] lab to add fungal [...] will follow over the weekend, then another [facility] physician will take over care on Wednesday. Call if any questions. Dr. Newton Santana has obtained history, performed physical examination and formulated the above plan of care Alpesh Velazquez APRN for Dr. Newton Santana [facility] I have edited this note to reflect my history, exam, assessment and plan. documented in this encounter Plan of Treatment Not on file documented as of this encounter Visit Diagnoses Not on filedocumented in this encounter
--- OUTSIDE RECORDS SUMMARY | 2024-08-30 07:37 | XMS_ITS | Encounter Summary ---
Author Organization [employer] ([place], [place], [place], [place]) Address [address] [place] [address] Care Team Providers Care Research Professional Name Role Phone Unavailable Primary Care Provider Unavailabl e Encounter Details Date Type Department Care Team (Late st Contact Info) Description 06/28/2019 Transcribed Document [facility] Family Medicine [facility] [place] [address] ProviderMariela MD [address], [place] [phone] Social History Tobacco Use Types Packs/Day Years [...] Historical ProviderMD - 06/28/2019 9:00 AM CDT [facility] Entered On: 06/28/2019 15:36 EDT Performed On: 06/28/2019 9:00 EDT by TOR ADAMES RN CareSet Assessment Admission Persistent Veg State/No Consciousness : [...] TOR ADAMES RN - 06/28/2019 15:32 EDT documented in this encounter Plan of Treatment Not on file documented as of this encounter Visit Diagnoses Not on filedocumented in this encounter
--- OUTSIDE RECORDS SUMMARY | 2024-08-30 07:37 | XMS_ITS | Encounter Summary ---
Author Organization [employer] ([place], [place], [place], [place]) Address [address] [place] [address] Care Team Providers Care Healthcare Market Consultant Name Role Phone Unavailable Primary Care Provider Unavailabl e Encounter Details Date Type Department Care Team (Late st Contact Info) Description 06/24/2019 Transcribed Document [facility] Family Medicine [facility] [place] [address] ProviderMariela MD [facility] [place] [address] Social History Tobacco Use Types [...] Conversion Note - Mariela Gates MD - 06/24/2019 3:49 PM CDT Patient: SOFIA [...] (JUN 21) L 1.7 (JUN 19) Micro: [facility]: 06/15 [facility] Blood cultures positive for group B strep and 2/2 bottles SJE: 06/16 fluid aspiration of left knee shows 118,150 white blood cells, GPC 06/16 repeat blood cultures with Group B Strep 06/16 MRSA surveillance culture and pro/pending 06/16 Urine culture in process/pending Rad: Radiology Results (Last 48 hours) [id number] -- 06/16/2019 21:08 CR Knee 1 or [...] - wbc down and no fevers continue retirement abx will monitor Electronically signed by Maureen Cornejo Conversion Railroad Wheels And Axle Inspector Min at 06/16/2022 8:12 PM CDT documented in this encounter Plan of Treatment Not on file documented as of this encounter Visit Diagnoses Not on filedocumented in this encounter
--- OUTSIDE RECORDS SUMMARY | 2024-08-30 07:37 | XMS_ITS | Encounter Summary ---
Author Organization [employer] ([place], [place], [place], [place]) Address [address] [place] [address] Care Team Providers Care Brakes Inspector Name Role Phone Unavailable Primary Care Provider Unavailabl e Encounter Details Date Type Department Care Team (Late st Contact Info) Description 06/28/2019 Transcribed Document [facility] [place] [address] [place] [address] ProviderMariela MD [address] [place], [place] [phone] Social History Tobacco Use Types Packs/Day Years [...] Reviewed : Yes Bibi Gallagher RN - 06/28/2019 6:17 EDT documented in this encounter Plan of Treatment Not on file documented as of this encounter Visit Diagnoses Not on filedocumented in this encounter
--- OUTSIDE RECORDS SUMMARY | 2024-08-30 07:37 | XMS_ITS | Encounter Summary ---
Author Organization [employer] ([place], [place], [place], [place]) Address [address] [place] [address] Care Team Providers Care Grab Hooker Name Role Phone Unavailable Primary Care Provider Unavailabl e Encounter Details Date Type Department Care Team (Late st Contact Info) Description 06/27/2019 Transcribed Document [facility] [place] [address] [place] [address] ProviderMariela MD [address] [place], [place] [phone] Social History Tobacco Use Types Packs/Day Years [...] Reviewed : Yes Bibi Gallagher RN - 06/27/2019 3:57 EDT Electronically signed by Chantal [facility] Conversion General House Worker Min at 06/16/2022 8:28 PM CDT documented in this encounter Plan of Treatment Not on file documented as of this encounter Visit Diagnoses Not on filedocumented in this encounter
--- OUTSIDE RECORDS SUMMARY | 2024-08-30 07:37 | XMS_ITS | Encounter Summary ---
Author Organization [employer] ([place], [place], [place], [place]) Address [address] [place] [address] Care Team Providers Care Fiberglass Machine Operator Name Role Phone Unavailable Primary Care Provider Unavailabl e Encounter Details Date Type Department Care Team (Late st Contact Info) Description 08/09/2018 Transcribed Document [facility] [place] [facility] [place] [address] ProviderMariela MD [address] [place] [address] Social History Tobacco Use Types Packs/Day Years [...] On: 08/09/2018 17:36 EDT by Zuleika Mcclendon RN Orthopedic Nurse Navigator Assessment Attended [employer] : [...]
--- OUTSIDE RECORDS SUMMARY | 2024-08-30 07:37 | XMS_ITS | Encounter Summary ---
Author Organization [employer] ([place], [place], [place], [place]) Address [address] [place] [address] Care Team Providers Care Restorative Aide Name Role Phone Unavailable Primary Care Provider Unavailabl e Encounter Details Date Type Department Care Team (Late st Contact Info) Description 06/28/2019 Transcribed Document [facility] [facility] [place] [address] ProviderMariela MD [address] [place] [phone] Social History Tobacco Use Types Packs/Day Years [...] Conversion Note - Mariela ProviderMD - 06/28/2019 2:39 PM CDT [facility] Inpatient Documentation Entered On: 06/28/2019 14:39 [...] calories Venous insufficiency (chronic) (peripheral) Reason for WOCN Visit : Assessment, ongoing, Dressing change Admitting Diagnosis ST : Reason for Admission CELLULITIS, UNSPECIFIED TAN BRYANT RN - 06/28/2019 14:39 EDT Wound & Pressure Ulcer WOCN Wound Pressure Ulcer Documentation : Btoxumzxb-Edbcsc-Mdgy Abnormality: Knee Left on 06/28/2019 14:37 by TAN BRYANT, EDDIE I/W/A Present on Admission to Hospital: Yes [...] inc dry with steri strips see photos Zuvmzmivo-Ynixmw-Fpts Abnormality: Other: gluteal cleft on 06/27/2019 11:39 by TAN BRYANT RN I/W/A Type: Moisture associated skin damage (MASD) I/W/A Present on Admission to Hospital: Yes I/W/A Wound Bed Description: Full-thickness, Other: linear I/W/A Bed Color(s): Red WOCN Ostomy Documentation : No ostomy assessments reported. TAN BRYANT RN - 06/28/2019 14:39 EDT Electronically signed by Chantal [facility] Conversion Manager Field Services Cerner at 06/16/2022 8:18 PM CDT documented in this encounter Plan of Treatment Not on file documented as of this encounter Visit Diagnoses Not on filedocumented in this encounter
--- OUTSIDE RECORDS SUMMARY | 2024-08-30 07:37 | XMS_ITS | Encounter Summary ---
Author Organization [employer] ([place], [place], [place], [place]) Address [address] [place] [address] Care Team Providers Care Real Estate Accountant Name Role Phone Unavailable Primary Care Provider Unavailabl e Encounter Details Date Type Department Care Team (Late st Contact Info) Description 06/17/2019 Transcribed Document [facility] [place] Medicine [facility] [place] [address] ProviderMariela MD [address] [place] [address] Social History Tobacco Use Types Packs/Day Years [...] Historical ProviderMD - 06/17/2019 2:00 AM CDT Program Director/Morning Show Host Details Entered On: 06/17/2019 2:07 EDT Performed On: 06/17/2019 2:00 EDT by Svitlana Ugarte RN Order Details Transport Mode Order Detail : Bed (including specialty) Isolation Precautions Order Detail : Contact precautions Order Detail : N/A IV Order Detail : 1 Oxygen Order Detail : 0 Nurse Collect Order Detail : 0 Lift/Transfer : Moderate assist Central Line Order Detail : No Room Service : Appropriate Arterial Line : No Svitlana Ugarte RN - 06/17/2019 2:06 EDT Electronically signed by Chantal [facility] Conversion Glass Cutter Hand Cerner at 06/16/2022 8:17 PM CDT documented in this encounter Plan of Treatment Not on file documented as of this encounter Visit Diagnoses Not on filedocumented in this encounter
--- OUTSIDE RECORDS SUMMARY | 2024-08-30 07:37 | XMS_ITS | Encounter Summary ---
Author Organization [employer] ([place], [place], [place], [place]) Address [address] [place] [address] Care Team Providers Care Vaccine Key Customer Leader Name Role Phone Unavailable Primary Care Provider Unavailabl e Encounter Details Date Type Department Care Team (Late st Contact Info) Description 06/28/2019 Transcribed Document [facility] Family Medicine [address] [place] [address] ProviderMariela MD [address] [place] [address] Social History Tobacco Use Types Packs/Day Years [...]
--- OUTSIDE RECORDS SUMMARY | 2024-08-30 07:37 | XMS_ITS | Encounter Summary ---
Author Organization [employer] ([place], [place], [place], [place]) Address [address] [place] [address] Care Team Providers Care School Year Nanny Name Role Phone Unavailable Primary Care Provider Unavailabl e Encounter Details Date Type Department Care Team (Late st Contact Info) Description 08/22/2018 Transcribed Document [facility] Family [facility] [address] [place] [address] ProviderMariela MD [address] [place] [phone] Social History Tobacco Use Types Packs/Day Years [...]
--- OUTSIDE RECORDS SUMMARY | 2024-08-30 07:37 | XMS_ITS | Encounter Summary ---
Author Organization [employer] ([place], [place], [place], [place]) Address [address] [place] [address] Care Team Providers Care Dam Tender Assistant Name Role Phone Unavailable Primary Care Provider Unavailabl e Encounter Details Date Type Department Care Team (Late st Contact Info) Description 06/23/[address] [facility] [place] [place] [facility] [place] [address] ProviderMariela MD [address] [place] [address] Social History Tobacco Use Types Packs/Day [...] Conversion Note - Mariela ProviderMD - 06/23/2019 5:06 PM CDT Patient: [...] 0.9% 50 mL 2 Gram, IV Piggyback, [id number] cyanocobalamin 1,000 mcg tab 5,000 mcg 5 Tab, Oral, Daily docusate sodium 100 mg cap 100 mg 1 Cap, Oral, BID DULoxetine DR 60 mg cap 60 mg 1 Cap, Oral, Daily enoxaparin 40 mg/0.4 mL inj 40 mg 0.4 mL, SubCutaneous, [id number] gabapentin 300 mg cap 300 mg 1 [...] At Bedtime fluticasone 0.05% nasal spray 2 [place], Nostrils Both, BID LORazepam 2 mg/mL inj [...] Topical, Q1H phenol 1.4% throat spray 1 [place], Oral, Q2H potassium chloride 10 mEq 100 [...] % LOW ALYC # 3 K/uL NA [place] Percent Man 6 % HI Myelo Percent [...] % LOW ALYC # 1 K/uL NA [place] Percent Man 6 % HI [place] Percent Man 3 % HI Myelo Percent [...]
--- OUTSIDE RECORDS SUMMARY | 2024-08-30 07:37 | XMS_ITS | Encounter Summary ---
Author Organization [employer] ([place], [place], [place], [place]) Address [address] [place] [address] Care Team Providers Care Brick Offbearer Name Role Phone Unavailable Primary Care Provider Unavailabl e Encounter Details Date Type Department Care Team (Late st Contact Info) Description 06/16/2019 Transcribed Document [facility] [place] [facility] [place] [address] ProviderMariela MD [address] [place] [address] Social History Tobacco Use Types Packs/Day Years [...]
--- OUTSIDE RECORDS SUMMARY | 2024-08-30 07:37 | XMS_ITS | Encounter Summary ---
Author Organization [employer] ([place], [place], [place], [place]) Address [address] [place] [address] Care Team Providers Care Millwright Helper Name Role Phone Unavailable Primary Care Provider Unavailabl e Encounter Details Date Type Department Care Team (Late st Contact Info) Description 07/13/2019 Transcribed Document [facility] Family Medicine [facility] [place] [address] ProviderMariela MD [address] [place], [place] [phone] Social History Tobacco Use Types Packs/Day Years [...] Historical ProviderMD - 07/13/2019 2:00 AM CDT Ccnp Details Entered On: 07/13/2019 0:59 EDT Performed On: 07/13/2019 2:00 EDT by Bibi Gallagher RN Order Details Transport Mode Order Detail : Stretcher/Gurney Isolation Precautions Order Detail : Standard Precautions Order Detail : N/A IV Order Detail : 0 Oxygen Order Detail : 0 Nurse Collect Order Detail : 1 Lift/Transfer : Moderate assist Central Line Order Detail : Yes Room Service : Appropriate Arterial Line : No Bibi Gallagher RN - 07/13/2019 0:59 EDT Electronically signed by Chantal [facility] Conversion Floor Care Technician Cerner at 06/16/2022 8:22 PM CDT documented in this encounter Plan of Treatment Not on file documented as of this encounter Visit Diagnoses Not on filedocumented in this encounter
--- OUTSIDE RECORDS SUMMARY | 2024-08-30 07:37 | XMS_ITS | Encounter Summary ---
Author Organization [employer] ([place], [place], [place], [place]) Address [address] [place] [address] Care Team Providers Care Audience Coordinator Name Role Phone Unavailable Primary Care Provider Unavailabl e Encounter Details Date Type Department Care Team (Late st Contact Info) Description 06/29/2019 Transcribed Document [facility] [place] [facility] [place] [address] ProviderMariela MD [address] [place] [phone] Social History Tobacco Use Types Packs/Day Years [...] Conversion Note - Mariela Gates MD - 06/29/2019 10:36 AM CDT Patient: SOFIA [...] (JUN 27 19:00) Resp Rate 18 (JUN 28:00) 18 (JUN [...] 26) ALB L 2.4 (JUN 26) Micro: [facility]: 06/15 [facility] Blood [...]
--- OUTSIDE RECORDS SUMMARY | 2024-08-30 07:37 | XMS_ITS | Encounter Summary ---
Author Organization [employer] ([place], [place], [place], [place]) Address [address] [place] [address] Care Team Providers Care Fitting Room Supervisor Name Role Phone Unavailable Primary Care Provider Unavailabl e Encounter Details Date Type Department Care Team (Late st Contact Info) Description 06/27/2019 Transcribed Document [facility] [place] [facility] [place] [address] ProviderMariela MD [address] [place] [phone] Social History Tobacco Use Types Packs/Day Years [...] Conversion Note - Mariela Gates MD - 06/27/2019 12:35 PM CDT Patient: SOFIA [...] disease: Tyrell Stock M.D. Admitting physician : [facility] medicine, internal medicine, Donna Jaffe M.D. [...] infection and recurrent falls, was admitted to [facility] with a periprosthetic Left knee infection. Initially [...] patient then transferred to long-term acute care hospital to continue her care and rehabilitation.(for more details please see discharge summary and H&P from [facility].} Postoperative Information Patient had surgery today and [...] BID fluticasone 50 mcg/inh nasal spray 2 [place], PRN, Nostrils Both, BID furosemide 40 mg [...] 0.9% 50 mL 2 Gram, IV Piggyback, [id number] cyanocobalamin 1,000 mcg tab 5,000 mcg 5 Tab, Oral, Daily DULoxetine DR 60 mg cap 60 mg 1 Cap, Oral, Daily enoxaparin 40 mg/0.4 mL inj 40 mg 0.4 mL, SubCutaneous, [id number] fluconazole 100 mg tab 100 mg 1 [...] fluticasone 0.05% nasal spray 100 mcg 2 [place], Nostrils Both, BID magnesium hydroxide 8% liq [...] left knee ORIF. lap band gastric bypass. [place] filter. Social History patient is and has [...] left knee pain and swelling. Integumentary: Warm, [place], Intact, No pallor, No rash, left knee [...] % 20.8 % Lymph # 2.21 x10(3)/uL [place] % 9.4 % HI [place] # 1.00 K/uL Eos % 2.6 % [...] % 24.4 % Lymph # 2.42 K/uL [place] % 8.7 % [place] # 0.86 K/uL HI Eos % 2.5 [...] Dietitian eval and management.nutritional supplement and support. Electronically signed by Chantal [facility] Conversion Hydroelectric Machinery Mechanic Helper Cerner at 06/16/2022 8:24 PM CDT documented in this encounter Plan of Treatment Not on file documented as of this encounter Visit Diagnoses Not on filedocumented in this encounter
--- OUTSIDE RECORDS SUMMARY | 2024-08-30 07:37 | XMS_ITS | Encounter Summary ---
Author Organization [employer] ([place], [place], [place], [place]) Address [address] [place] [address] Care Team Providers Care Process Safety Engineer Name Role Phone Unavailable Primary Care Provider Unavailabl e Encounter Details Date Type Department Care Team (Late st Contact Info) Description 06/16/2019 Transcribed Document [facility] [place] [address] [place] [address] ProviderMariela MD [address] [place] [address] Social History Tobacco Use Types Packs/Day Years [...] : Infectious Disease Consult, Additional Information : MD notified of consult KARY AQUINO - 06/17/2019 8:26 EDT documented in this encounter Plan of Treatment Not on file documented as of this encounter Visit Diagnoses Not on filedocumented in this encounter
--- OUTSIDE RECORDS SUMMARY | 2024-08-30 07:37 | XMS_ITS | Encounter Summary ---
Author Organization [employer] ([place], [place], [place], [place]) Address [address] [place] [address] Care Team Providers Care Assistant Track And Field Coach Name Role Phone Unavailable Primary Care Provider Unavailabl e Encounter Details Date Type Department Care Team (Late st Contact Info) Description 06/28/2019 Transcribed Document [facility] [place] [address] [place] [address] ProviderMariela MD [address] [place] [phone] Social History Tobacco Use Types Packs/Day Years [...] Reviewed : Yes TOR ADAMES RN - 06/28/2019 15:36 EDT documented in this encounter Plan of Treatment Not on file documented as of this encounter Visit Diagnoses Not on filedocumented in this encounter
--- OUTSIDE RECORDS SUMMARY | 2024-08-30 07:37 | XMS_ITS | Encounter Summary ---
Author Organization [employer] ([place], [place], [place], [place]) Address [address] [place] [address] Care Team Providers Care Structural Engineering Drafting Officer Name Role Phone Unavailable Primary Care Provider Unavailabl e Encounter Details Date Type Department Care Team (Late st Contact Info) Description 06/16/2019 Transcribed Document [facility] [place] [address] ProviderMariela MD [address] [place] [address] Social History Tobacco Use Types Packs/Day Years Used Date Smoking Tobacco: Never Assessed Comments Unknown Sex and Gender Information Value Date Recorded Sex Assigned at Female 09/02/2021 8:57 PM CDT Legal Sex Female 6:58 PM CDT Gender Identity Female 09/02/2021 8:57 PM CDT Sexual Orientation Not on file documented as of this encounter Miscellaneous Notes * [employer]ner Conversion Note - Mariela ProviderMD - 06/16/2019 9:08 PM CDT Meds to Bed Enrollment Entered On: 06/19/2019 12:37 EDT Performed On: 06/16/2019 21:08 EDT by Dylan Alvarez HEDIS COORDINATOR LEAD Meds to Bed Enrollment Patient Enrollment Decision: : No/do not enroll in meds to bed program Reason for Declining Meds to Bed Program: : Other: NA Dylan Alvarez HEDIS COORDINATOR LEAD - 06/19/2019 12:37 EDT documented in this encounter Plan of Treatment Not on file documented as of this encounter Visit Diagnoses Not on filedocumented in this encounter
--- OUTSIDE RECORDS SUMMARY | 2024-08-30 07:37 | XMS_ITS | Encounter Summary ---
Author Organization [employer] ([place], [place], [place], [place]) Address [address] [place] [address] Care Team Providers Care Supervisor Inspection Department Name Role Phone Unavailable Primary Care Provider Unavailabl e Encounter Details Date Type Department Care Team (Late st Contact Info) Description 06/28/2019 Transcribed Document [facility] [place] [facility] [place] [address] ProviderMariela MD [address] [place] [address] Social History Tobacco Use Types Packs/Day Years [...] Historical ProviderMD - 06/28/2019 2:00 AM CDT Glazier Apprentice Details Entered On: 06/28/2019 6:17 EDT Performed [...]
--- OUTSIDE RECORDS SUMMARY | 2024-08-30 07:37 | XMS_ITS | Encounter Summary ---
Author Organization [employer] ([place], [place], [place], [place]) Address [address] [place] [address] Care Team Providers Care Pediatric Immunologist Name Role Phone Unavailable Primary Care Provider Unavailabl e Encounter Details Date Type Department Care Team (Late st Contact Info) Description 06/29/2019 Transcribed Document [facility] [place] Medicine [facility] [place] [address] ProviderMariela MD [address] [place] [address] Social History Tobacco Use Types Packs/Day Years [...] Historical ProviderMD - 06/29/2019 2:00 AM CDT Primer Waterproofing Machine Adjuster Details Entered On: 06/29/2019 3:41 EDT Performed [...]
--- OUTSIDE RECORDS SUMMARY | 2024-08-30 07:37 | XMS_ITS | Encounter Summary ---
Author Organization [employer] ([place], [place], [place], [place]) Address [address] [place] [address] Care Team Providers Care Scrap Metal Burner Name Role Phone Unavailable Primary Care Provider Unavailabl e Encounter Details Date Type Department Care Team (Late st Contact Info) Description 06/28/2019 Transcribed Document [facility] [place] [address] [place] [address] ProviderMariela MD [address] [place] [address] Social History Tobacco Use Types Packs/Day Years [...]
--- OUTSIDE RECORDS SUMMARY | 2024-08-30 07:37 | XMS_ITS | Encounter Summary ---
Author Organization [employer] ([place], [place], [place], [place]) Address [address] [place] [address] Care Team Providers Care Saw Feeder Name Role Phone Unavailable Primary Care Provider Unavailabl e Encounter Details Date Type Department Care Team (Late st Contact Info) Description 06/28/2019 Transcribed Document [facility] [place] [facility] [place] [address] ProviderMariela MD [address] [place] [address] Social History Tobacco Use Types Packs/Day [...] Conversion Note - Mariela ProviderMD - 06/28/2019 9:36 AM CDT Patient: SOFIA GILL Age: 79 years Sex: Female : 1940 Associated Diagnoses: None Author: CHRISSY HENDERSON, PharmD, BCPS HPI: 06/15 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 Rx to follow, Chrissy Henderson, PharmD [phone] documented in this encounter Plan of Treatment Not on file documented as of this encounter Visit Diagnoses Not on filedocumented in this encounter
--- OUTSIDE RECORDS SUMMARY | 2024-08-30 07:37 | XMS_ITS | Encounter Summary ---
Author Organization [employer] ([place], [place], [place], [place]) Address [address] [place] [address] Care Team Providers Care Traffic Court Magistrate Name Role Phone Unavailable Primary Care Provider Unavailabl e Encounter Details Date Type Department Care Team (Late st Contact Info) Description 06/17/2019 Transcribed Document [facility] [place] [facility] [place] [place] [address] ProviderMariela MD [address] [place] [address] Social History Tobacco Use Types Packs/Day Years Used Date Smoking Tobacco: Never Assessed Comments Unknown Sex and Gender Information Value Date Recorded Sex Assigned at Female 09/02/2021 8:57 PM CDT Legal Sex Female 6:58 PM CDT Gender Identity Female 09/02/2021 8:57 PM CDT Sexual Orientation Not on file documented as of this encounter Miscellaneous Notes * Min Conversion Note - Mariela ProviderMD - 06/17/2019 12:08 AM CDT Nutrition Assessment Entered On: 06/19/2019 12:46 EDT Performed On: 06/19/2019 15:[address] Oma Berg [address], LD Nutrition [...]
--- OUTSIDE RECORDS SUMMARY | 2024-08-30 07:37 | XMS_ITS | Encounter Summary ---
Author Organization [employer] ([place], [place], [place], [place]) Address [address] [place] [address] Care Team Providers Care Clinical Neuropsychologist Name Role Phone Unavailable Primary Care Provider Unavailabl e Encounter Details Date Type Department Care Team (Late st Contact Info) Description 07/13/2019 Transcribed Document [facility] [place] [address] ProviderMariela MD [address] [place] [address] Social History Tobacco Use Types Packs/Day [...] Comment, OT : Given LH sponge, leg algorithm developer and telecom sales consultant for ADLs in room. Declines further practice from OT. Will sign off at this time. NILA RAMAN OTR/B[place] - 07/13/2019 14:14 EDT Penitentiary Goals, OT Bathing LTG Grid Goal #1 [...] Not met Comment : * NILA BLAIR, OTR/L - 07/13/2019 14:14 EDT Toilet Transfer LTG Grid Goal #1 Goal #2 Activity : Toilet Transfer, Stand Pivot Sit Toilet Transfer, Ambulatory Assist : Assist, minimal Supervision or set up Date to Meet : 07/11/2019 EDT 07/25/2019 EDT Goal Status : Goal met Goal met Date Met : 07/11/2019 EDT 07/13/2019 EDT NILA RAMAN, OTR/L - 07/13/2019 14:14 EDT NILA RAMAN OTR/L - 07/13/2019 14:14 EDT Bed Mobility/ [...]
--- OUTSIDE RECORDS SUMMARY | 2024-08-30 07:37 | XMS_ITS | Encounter Summary ---
Author Organization [employer] ([place], [place], [place], [place]) Address [address] [place] [address] Care Team Providers Care Parts Counterperson Name Role Phone Unavailable Primary Care Provider Unavailabl e Encounter Details Date Type Department Care Team (Late st Contact Info) Description 06/16/2019 Transcribed Document [facility] [place] [facility] [place] [address] ProviderMariela MD [address] [place] [id number] Social History Tobacco Use Types Packs/Day Years [...] Conversion Note - Historical ProviderMD - 06/16/2019 9:07 PM CDT Admission History, [...] Bed Legal Guardian : No Support Person/Patient Relay Telegrapher : Yes Support Person/Pt Rep Name : Sam Rust Yen Contact Password : Keily Support Person/Pt Rep Contact Information : son (Sam) [phone] (Nancy Rust [phone] Want Family/Rep/Phys Notified of Admit : No Emergency Contact #1 : Sam Barlow Emergency Contact #1 Emergency Contact #1 Relationship : Son Emergency Contact #2 : Sy Sinney Emergency Contact #2 Emergency Contact #2 Relationship : Son Chief Complaint : Patient had vomiting a couple days ago, began feeling worse and both knees were hurting, eventually causing too much pain and weakness to walk. Information Obtained From : Patient Primary Language : Luxembourgish Preferred Communication Mode : Verbal Communication Barrier [...] Level : 46 or > High Risk [place] Fall Interventions : Adequate lighting, Assistive devices [...] EMMANUEL, EDDIE) Height and Weight, Clinical Dosing Height Source : Stated Height Entry Format : Mills Height, Feet : 4 ft(Converted to: 122 cm, 48 Inch) Height, Inches : 11 Inch(Converted to: 0 ft 11 Inch, 27.94 cm) Clinical Height : 149.86 cm Weight Source : Bed scale Weight Entry Format : Mills Clinical Dosing Weight : 91.82 kg Weight, Pounds : 202 lb Body Surface Area (BSA) : 1.85 m2 Body Mass Index : 40.9 kg/m2 (>HHI) [place] Body Weight : 43 kg Svitlana Ugarte [...] Svitlana Ugarte RN - 06/17/2019 0:08 EDT [place]rose Suicide Severity Rating Scale (C-SSRS) CSSRS Past [...] RN - 06/17/2019 0:08 EDT Spiritual/Cultural Needs Bahai Preference : Pentecostal Svitlana Ugarte RN - 06/17/2019 0:08 EDT [...]
--- OUTSIDE RECORDS SUMMARY | 2024-08-30 07:37 | XMS_ITS | Encounter Summary ---
Author Organization [employer] ([place], [place], [place], [place]) Address [address] [place] [address] Care Team Providers Care Recreational Leader Name Role Phone Unavailable Primary Care Provider Unavailabl e Encounter Details Date Type Department Care Team (Late st Contact Info) Description 06/24/2019 Transcribed Document [facility] [place] [facility] [place] [address] ProviderMariela MD [address] [place] [address] Social History Tobacco Use Types Packs/Day Years [...] Historical ProviderMD - 06/24/2019 2:00 AM CDT Client Care Specialist Details Entered On: 06/24/2019 3:32 EDT Performed On: 06/24/2019 2:00 EDT by Chiki Morris, RN Order Details Transport Mode Order Detail : Bed (including specialty) Isolation Precautions Order Detail : Contact precautions Order Detail : N/A Oxygen Order Detail : 1 Lift/Transfer : Moderate assist Central Line Order Detail : Yes Room Service : Not Appropriate Arterial Line : No Chiki Morris RN - 06/24/2019 3:32 EDT documented in this encounter Plan of Treatment Not on file documented as of this encounter Visit Diagnoses Not on filedocumented in this encounter
--- OUTSIDE RECORDS SUMMARY | 2024-08-30 07:37 | XMS_ITS | Encounter Summary ---
Author Organization [employer] ([place], [place], [place], [place]) Address [address] [place] [address] Care Team Providers Care Manager Utilization Name Role Phone Unavailable Primary Care Provider Unavailabl e Encounter Details Date Type Department Care Team (Late st Contact Info) Description 06/16/2019 Transcribed Document [facility] [place] [facility] [place] [address] ProviderMariela MD [address] [place] [address] Social History Tobacco Use Types Packs/Day [...] Conversion Note - Mariela ProviderMD - 06/16/2019 9:25 PM CDT Pain [...]
--- OUTSIDE RECORDS SUMMARY | 2024-08-30 07:37 | XMS_ITS | Encounter Summary ---
Author Organization [employer] ([place], [place], [place], [place]) Address [address] [place] [address] Care Team Providers Care Industrial Training Specialist Name Role Phone Unavailable Primary Care Provider Unavailabl e Encounter Details Date Type Department Care Team (Late st Contact Info) Description 08/29/2018 Transcribed Document [facility] [place] [facility] [place] [address] ProviderMariela MD [facility] [place] [address] Social History Tobacco Use Types [...] Mariela ProviderMD - 08/29/2018 5:25 PM CDT [place] [id number] SOFIA GILL :1940 Visit Time:08/22/2018 Your Visit Summary Your Care Team Admitting Physician - NIMO EPPS MD-ORT Attending Physician - NIMO EPPS MD-FRANCKT Primary [...] [place] AT [facility] TODAY, CALL REPORT TO [phone] FAX D/C SUMMARY TO [phone] Follow-Up Appointments Follow Up with SOLOMON MCCRACKEN PA-C When 09/08/2018 09:00 AM EDT Comments Appointment has been made Where: Follow Up with [facility] When Where: [address] [place] [address]- Medications What How Much When Instructions Next [...] (fluticasone 50 mcg/ inh nasal spray) 2 [place](s) Nostrils Both Two Times A Day as [...] Barley. Bulgur wheat. Millet. Bran muffins. Popcorn. Jewell wafer crackers. ??? Vegetables Sweet potatoes. Spinach. Kale. Artichokes. Cabbage. Broccoli. Green peas. Carrots. Squash. ??? Fruits Berries. Pears. Apples. Oranges. Avocados. Prunes and raisins. Dried figs. ??? Meats and Other Protein Sources [place], kidney, call, and soy beans. Split peas. [...] gray has 11 g of protein. ??? [place] seeds ??? 1 oz has 5.5 g [...] floor. ??? Place frequently used items in xuib-sg-ncbwy places ??? Keep electrical cables out of [...] ? Using the bathroom. ? Using household material distributor or toxic chemicals. ? Touching or taking [...] What is aspirin? Aspirin is a salicylate (tl-IZU-tl-ate). It works by reducing substances in the [...] may report side effects to FDA at 7-395-ZXD-1965. What other drugs will affect aspirin? Ask [...] drugs may affect aspirin, including prescription and qnjp-gdz-vzdllsh medicines, vitamins, and herbal products. Not all [...] to ensure that the information provided by [employer]. ('Mult[employer]') is accurate, up-to-date, and complete, but no guarantee is made to that effect. Drug information contained herein may be time sensitive. [employer] information has been compiled for use by healthcare practitioners and consumers in the [place] and therefore [employer] does not warrant that uses outside of the [place] are appropriate, unless specifically indicated otherwise. [employer] drug information does not endorse drugs, diagnose patients or recommend therapy. [employer] drug information is an informational resource designed [...] effective or appropriate for any given patient. [employer] does not assume any responsibility for any aspect of healthcare administered with the aid of information [employer] provides. The information contained herein is not intended to cover all possible uses, directions, precautions, warnings, drug interactions, allergic reactions, or adverse effects. If you have questions about the drugs you are taking, check with your doctor, nurse or pharmacist. Copyright 9775-8923 [employer]. Version: 15.02. Revision Date: 05/31/2017.gabapentin (GA ba PEN tin) [...] are a day sleeper or work a shift production associate. Some people have thoughts about suicide while [...] may report side effects to FDA at 1-475-XQX-3620. What other drugs will affect gabapentin? Taking gabapentin with other drugs that make you sleepy can worsen this effect. Ask your doctor before taking a sleeping pill, narcotic medication, muscle relaxer, or medicine for anxiety, depression, or seizures. Other drugs may interact with gabapentin, including prescription and ubxv-qio-hqpfwdy medicines, vitamins, and herbal products. Tell your [...] to ensure that the information provided by [employer]. ('[employer]') is accurate, up-to-date, and complete, but no guarantee is made to that effect. Drug information contained herein may be time sensitive. [employer] information has been compiled for use by healthcare practitioners and consumers in the [place] and therefore [employer] does not warrant that uses outside of the [place] are appropriate, unless specifically indicated otherwise. [employer]'s drug information does not endorse drugs, diagnose patients or recommend therapy. [facility] drug information is an informational resource designed [...] effective or appropriate for any given patient. [facility] does not assume any responsibility for any aspect of healthcare administered with the aid of information [facility] provides. The information contained herein is not intended to cover all possible uses, directions, precautions, warnings, drug interactions, allergic reactions, or adverse effects. If you have questions about the drugs you are taking, check with your doctor, nurse or pharmacist. Copyright 4622-5582 [employer]. Version: 14.. Revision Date: 12/08/2016.hydromorphone (oral) (JATINDER [...] extended-release form of this medicine is for wsftcc-vjk-kdhsc treatment of moderate to severe pain, not [...] against the law. Stop taking all other jkgjsd-zdv-txipa narcotic pain medications when you start taking [...] may report side effects to FDA at 0-940-FIY-9040. What other drugs will affect hydromorphone? Opioid [...] drugs may affect hydromorphone, including prescription and jfkv-mrx-feeieft medicines, vitamins, and herbal products. Not all [...] to ensure that the information provided by [employer]. ('[employer]') is accurate, up-to-date, and complete, but no guarantee is made to that effect. Drug information contained herein may be time sensitive. [employer] information has been compiled for use by healthcare practitioners and consumers in the [place] and therefore [employer] does not warrant that uses outside of the [place] are appropriate, unless specifically indicated otherwise. [employer]'s drug information does not endorse drugs, diagnose patients or recommend therapy. [employer] drug information is an informational resource designed [...] appropriate for any given patient. [facility] does not assume any responsibility for any aspect of healthcare administered with the aid of information [facility] provides. The information contained herein is not intended to cover all possible uses, directions, precautions, warnings, drug interactions, allergic reactions, or adverse effects. If you have questions about the drugs you are taking, check with your doctor, nurse or pharmacist. Copyright 3067-7183 [facility]. Version: 9.02. Revision Date: 01/26/2018.docusate (oral/rectal) (DOK ue sate) Colace, Diocto, Dioeze, Doc-Q-Lace, Docu, Docu Soft, [...] 8 ounces of milk, fruit juice, or infant formula and drink the mixture right away. [...] may report side effects to FDA at 9-134-QXD-3308. What other drugs will affect docusate? Other drugs may interact with docusate, including prescription and bntq-qui-wtukaee medicines, vitamins, and herbal products. Tell each [...] to ensure that the information provided by [employer]. ('[employer]') is accurate, up-to-date, and complete, but no guarantee is made to that effect. Drug information contained herein may be time sensitive. [employer] information has been compiled for use by healthcare practitioners and consumers in the [place] and therefore [employer] does not warrant that uses outside of the [place] are appropriate, unless specifically indicated otherwise. [employer] drug information does not endorse drugs, diagnose patients or recommend therapy. [employer] drug information is an informational resource designed [...] effective or appropriate for any given patient. [employer] does not assume any responsibility for any aspect of healthcare administered with the aid of information [employer] provides. The information contained herein is not intended to cover all possible uses, directions, precautions, warnings, drug interactions, allergic reactions, or adverse effects. If you have questions about the drugs you are taking, check with your doctor, nurse or pharmacist. Copyright 0250-0386 [employer]. Version: 3.03. Revision Date: 04/12/2013.acetaminophen (oral) (a SEET a MIN oh fen) Actamin, Anacin AF, Apra, Bromo [place], Children's Tylenol, Elixsure Fever/Pain, Mapap, Medi-Tabs, Q-Pap, [...] is a pain reliever and a fever laundry washer. Acetaminophen is used to treat many conditions [...] may report side effects to FDA at 7-072-NGA-5550. What other drugs will affect acetaminophen? Other drugs may interact with acetaminophen, including prescription and rgpx-lrf-ncyryml medicines, vitamins, and herbal products. Tell your doctor about all your current medicines and any medicine you start or stop using. Where can I get more information? Your pharmacist can provide more information about acetaminophen. Remember, keep this and all other medicines out of the reach of children, never share your medicines with others, and use this medication only for the indication prescribed. Electronically signed by Maureen Cornejo Conversion [employer] Truck Driver Cerner at 06/16/2022 8:27 PM CDT documented in this encounter Plan of Treatment Not on file documented as of this encounter Visit Diagnoses Not on filedocumented in this encounter
--- OUTSIDE RECORDS SUMMARY | 2024-08-30 07:37 | XMS_ITS | Encounter Summary ---
Author Organization [employer] ([place], [place], [place], [place]) Address [address] [place] [address] Care Team Providers Care Biodiesel Product Development Manager Name Role Phone Unavailable Primary Care Provider Unavailabl e Encounter Details Date Type Department Care Team (Late st Contact Info) Description 06/28/[address] [facility] [place] [facility] [place] [address] ProviderMariela MD [address] [place] [address] Social History Tobacco Use Types Packs/Day [...] Note - Mariela Gates MD - 06/28/2019 11:20 AM CDT Patient: SOFIA [...] 0.9% 50 mL 2 Gram, IV Piggyback, [id number] cyanocobalamin 1,000 mcg tab 5,000 mcg 5 [...] fluticasone 0.05% nasal spray 100 mcg 2 [place], Nostrils Both, BID magnesium hydroxide 8% liq [...] % 20.8 % Lymph # 2.21 x10(3)/uL [place] % 9.4 % HI [place] # 1.00 K/uL Eos % 2.6 % [...]
--- OUTSIDE RECORDS SUMMARY | 2024-08-30 07:37 | XMS_ITS | Encounter Summary ---
Author Organization [employer] ([place], [place], [place], [place]) Address [address] [place] [address] Care Team Providers Care Dental Service Chief Name Role Phone Unavailable Primary Care Provider Unavailabl e Encounter Details Date Type Department Care Team (Late st Contact Info) Description 07/13/2019 Transcribed Document [facility] [place] [facility] [place] [address] ProviderMariela MD [address] [place] [address] Social History Tobacco Use Types Packs/Day Years [...] Georgina Olivo RN - 07/13/2019 23:29 EDT documented in this encounter Plan of Treatment Not on file documented as of this encounter Visit Diagnoses Not on filedocumented in this encounter
--- OUTSIDE RECORDS SUMMARY | 2024-08-30 07:37 | XMS_ITS | Encounter Summary ---
Author Organization [employer] ([place], [place], [place], [place]) Address [address] [place] [address] Care Team Providers Care Implementation Consultant Name Role Phone Unavailable Primary Care Provider Unavailabl e Encounter Details Date Type Department Care Team (Late st Contact Info) Description 07/13/2019 Transcribed Document [facility] [place] [facility] [place] [address] ProviderMariela MD [address] [place] [address] Social History Tobacco Use Types Packs/Day Years [...]
--- OUTSIDE RECORDS SUMMARY | 2024-08-30 07:37 | XMS_ITS | Encounter Summary ---
Author Organization [employer] ([place], [place], [place], [place]) Address [address] [place] [address] Care Team Providers Care Supply Officer Name Role Phone Unavailable Primary Care Provider Unavailabl e Encounter Details Date Type Department Care Team (Late st Contact Info) Description 06/24/2019 Transcribed Document [facility] [place] [address] ProviderMariela MD [address] [place] [address] Social History Tobacco Use Types Packs/Day [...] Conversion Note - Mariela ProviderMD - 06/24/2019 1:47 PM CDT On Going Discharge Planning Entered On: 06/24/2019 13:49 EDT Performed On: 06/24/2019 13:47 EDT by Halima Tripathi RN-SALOON KEEPERcontrol valve technician Progress Note Discharge Arrangements : Patient Post-Acute [...] Attend Multidisciplinary Rounds? : No Halima Tripathi RN-SALOON KEEPER - 06/24/2019 13:47 EDT Narrative Progress Note Narrative Progress Note : Per ID note of 06/22: continue ceftriaxone 2 gm daily and plan on 8 weeks of therapy with PICC line in lifelong oral suppression. Otherwise, patient has been accepted by [facility] and we are awaiting bed availability, likely next week. CM will continue to follow. Historical Progress Note : RECEIVED CALL FROM [facility] WITH [facility]..PATIENT HAS BEEN ACCEPTED AND THEY WILL HAVE A BED SOMETIME NEXT WEEK..CM WILL CONTINUE TO FOLLOW AND INFORM DR DRIVER OF THE ABOVE..DEBORAH BENAVIDEZ RN-Fiscal Agent - 06/23/19 11:45:46 RECEIVED CALL FROM [facility] WITH [facility]..PATIENT HAS BEEN ACCEPTED AND THEY WILL HAVE A BED SOMETIME NEXT WEEK..CM WILL CONTINUE TO FOLLOW AND INFORM DR DRIVER OF THE ABOVE..STEPHANIE SPOKE WITH PT AT BEDSIDE AND SHE IS AWARE THAT L-TACH HAS STARTED A PRECERT AND HOPEFULLY WILL HAVE BED AVAILABLE ON WEDNESDAY PENDING AUTHORIZATION..DR DRIVER AWARE..DEBORAH BENAVIDEZ RN-Fiscal Agent - 06/23/19 17:11:55 Sent referral to LTACH through [facility]..........MIKE Adam RN-Fiscal Agent - 06/21/19 16:57:54 Was planning for AKA, now patient will undergo a total joint revision with I&D. Will continue to follow.............MIKE Adam RN-Fiscal Agent - 06/21/19 16:36:10 PICC line placed, Per LID, plan for computer terminal operator IV abx. Surgery scheduled for today................MIKE Adam RN-Fiscal Agent - 06/21/19 10:06:05 No MDR this AM with provider. Patient with low-grade fever this AM and throughout the night. COTY was rescheduled for 06/20 for this reason. CM will continue to follow. Halima Tripathi, EDDIE-SALOON KEEPER - 06/20/19 11:50:51 Patient becoming more agitated and confused, refusing to wear oxygen. Patient now on CPAP, WBC increased, BC x2 positive for group b Strep. Dr Saenz to perform AKA tomorrow morning. Will continue to follow..............sds MIKE FRIEDMAN, EDDIE-Fiscal Agent - 06/19/19 11:35:19 Halima Tripathi RN-SALOON KEEPER - 06/24/2019 13:47 EDT documented in this encounter Plan of Treatment Not on file documented as of this encounter Visit Diagnoses Not on filedocumented in this encounter
--- OUTSIDE RECORDS SUMMARY | 2024-08-30 07:37 | XMS_ITS | Encounter Summary ---
Author Organization [employer] ([place], [place], [place], [place]) Address [address] [place] [address] Care Team Providers Care Razor Sharpener Name Role Phone Unavailable Primary Care Provider Unavailabl e Encounter Details Date Type Department Care Team (Late st Contact Info) Description 06/17/2019 Transcribed Document [facility] [place] [facility] [place] [address] ProviderMariela MD [address] [place] [address] Social History Tobacco Use Types Packs/Day [...] Conversion Note - Mariela ProviderMD - 06/17/2019 9:28 AM CDT Patient: [...] going to check with Dr. Waddell at [facility] for potential consultation for amputation [...] NONAUT RED BLOOD CELLS IN PERIPH VEIN, [facility] (10/28/2016), REMOVAL OF SYNTH SUB FROM L KNEE JT, FEMORAL, OPEN APPROACH (10/26/2016), REPLACE L KNEE JT, FEMORAL W SYNTH SUB, CEMENT, OPEN (10/26/2016), [place] filter, lap band gastric bypass, left knee [...] PRN fluticasone 50 mcg/inh nasal spray, 2 [place], Nostrils Both, BID, PRN gabapentin, 300 mg= 1 Cap, Oral, At Bedtime, PRN influenza virus vaccine, inactivated, 0.5 mL, IntraMuscular, [id number] lidocaine 1% preservative-free injectable solution, 10 mL, [...] BID fluticasone 50 mcg/inh nasal spray, 2 [place], Nostrils Both, BID, PRN Lasix 40 mg [...] ALYC # 1 K/uL 06/17/2019 03:44 EDT [place] Percent Man 5 % 06/17/2019 03:44 EDT RBC Morphology Normal 06/17/2019 03:44 EDT Toxic Granulation 3+ (Abnormal) 06/17/2019 03:[address] Estimate Adequate 06/17/2019 03:44 EDT Sed Rate Auto 130 mm/Hr (High) 06/17/2019 03:44 EDT Urine Type. U CleanCatch 06/17/2019 00:16 EDT Urine Color DK YELLOW 06/17/2019 00:16 EDT Urine Appearance CLEAR2 06/17/2019 00:16 EDT Urine Specific [place] 1.033 (High) 06/17/2019 00:16 EDT Urine pH [...]
--- OUTSIDE RECORDS SUMMARY | 2024-08-30 07:37 | XMS_ITS | Encounter Summary ---
Author Organization [employer] ([place], [place], [place], [place]) Address [address] [place] [address] Care Team Providers Care Screening Representative Name Role Phone Unavailable Primary Care Provider Unavailabl e Encounter Details Date Type Department Care Team (Late st Contact Info) Description 07/13/2019 Transcribed Document [facility] [place] Family Medicine [address] [place] [address] ProviderMariela MD [address] [place], [place] [id number] Social History Tobacco Use Types Packs/Day Years [...]
--- OUTSIDE RECORDS SUMMARY | 2024-08-30 07:37 | XMS_ITS | Encounter Summary ---
Author Organization [employer] ([place], [place], [place], [place]) Address [address] [place] [address] Care Team Providers Care Manager Foreign Name Role Phone Unavailable Primary Care Provider Unavailabl e Encounter Details Date Type Department Care Team (Late st Contact Info) Description 07/12/2019 Transcribed Document [facility] Radiology [address] [place] [address] Shawanda Barahona MD [address] [id number] Social History Tobacco Use Types Packs/Day Years [...] (JULY 12 07:00) SBP H 148 (JULY 12:00) 108 (JULY [...] (JULY 06) L 2.9 (JULY 05) Micro: [facility]: 06/15 [facility] Blood cultures positive for group [...]
--- OUTSIDE RECORDS SUMMARY | 2024-08-30 07:37 | XMS_ITS | Encounter Summary ---
Author Organization [employer] ([place], [place], [place], [place]) Address [address] [place] [address] Care Team Providers Care Podiatry Teacher Name Role Phone Unavailable Primary Care Provider Unavailabl e Encounter Details Date Type Department Care Team (Late st Contact Info) Description 06/16/2019 Transcribed Document [facility] [place] Family Medicine [address] [place] [address] ProviderMariela MD [address] [place] [address] Social History Tobacco Use Types Packs/Day Years [...] : Infectious Disease Consult, Additional Information : Md notified of consult KARY AQUINO - 06/17/2019 8:27 EDT documented in this encounter Plan of Treatment Not on file documented as of this encounter Visit Diagnoses Not on filedocumented in this encounter
--- OUTSIDE RECORDS SUMMARY | 2024-08-30 07:37 | XMS_ITS | Encounter Summary ---
Author Organization [employer] ([place], [place], [place], [place]) Address [address] [place] [address] Care Team Providers Care Physician Relations Representative Name Role Phone Unavailable Primary Care Provider Unavailabl e Encounter Details Date Type Department Care Team (Late st Contact Info) Description 07/12/2019 Transcribed Document [facility] [place] [facility] [place] [address] ProviderMariela MD [address] [place], [place] [id number] Social History Tobacco Use Types Packs/Day Years [...] Historical ProviderMD - 07/12/2019 2:00 AM CDT Outplacement Consultant Details Entered On: 07/12/2019 4:38 EDT Performed On: 07/12/2019 2:00 EDT by Bibi Gallagher RN Order Details Transport Mode Order Detail : Stretcher/Gurney Isolation Precautions Order Detail : Standard Precautions Order Detail : N/A IV Order Detail : 0 Oxygen Order Detail : 0 Nurse Collect Order Detail : 1 Lift/Transfer : Moderate assist Central Line Order Detail : Yes Room Service : Appropriate Arterial Line : No Bibi Gallagher RN - 07/12/2019 4:37 EDT Electronically signed by Chantal [facility] Conversion Pediatric Physical Therapist Cerner at 06/16/2022 8:29 PM CDT documented in this encounter Plan of Treatment Not on file documented as of this encounter Visit Diagnoses Not on filedocumented in this encounter
--- OUTSIDE RECORDS SUMMARY | 2024-08-30 07:37 | XMS_ITS | Encounter Summary ---
Author Organization [email or web address] ([place], [place], [place], [place]) Address [address] [place] [address] Care Team Providers Care Software Packager Name Role Phone Unavailable Primary Care Provider Unavailabl e Encounter Details Date Type Department Care Team (Late st Contact Info) Description 08/11/2018 Transcribed Document [facility] [place] [facility] [place] [address] ProviderMariela MD [address] [place], [place] [phone] Social History Tobacco Use Types Packs/Day Years [...] Hawa of patient having latex allergy Karen Flores Rn - 08/11/2018 14:59 EDT documented in this encounter Plan of Treatment Not on file documented as of this encounter Visit Diagnoses Not on filedocumented in this encounter
--- OUTSIDE RECORDS SUMMARY | 2024-08-30 07:37 | XMS_ITS | Encounter Summary ---
Author Organization [employer] ([place], [place], [place], [place]) Address [address] [place] [address] Care Team Providers Care Oracle Webcenter Consultant Name Role Phone Unavailable Primary Care Provider Unavailabl e Encounter Details Date Type Department Care Team (Late st Contact Info) Description 06/23/2019 Transcribed Document [facility] [place] [facility] [place] [address] ProviderMariela MD [address] [place] [address] Social History Tobacco Use Types Packs/Day [...] Note - Mariela ProviderMD - 06/23/2019 9:00 PM CDT Pain [...]
--- OUTSIDE RECORDS SUMMARY | 2024-08-30 07:37 | XMS_ITS | Encounter Summary ---
Author Organization [employer] ([place], [place], [place], [place]) Address [address] [place] [address] Care Team Providers Care Lamination Machine Operator Name Role Phone Unavailable Primary Care Provider Unavailabl e Encounter Details Date Type Department Care Team (Late st Contact Info) Description 06/17/2019 Transcribed Document [facility] [place] [facility] [place] [address] ProviderMariela MD [address] [place] [address] Social History Tobacco Use Types Packs/Day [...] Conversion Note - Mariela Gates MD - 06/17/2019 11:14 PM CDT Patient: SOFIA [...] : Musa Giron MD Admitting Physician : [facility] medicine :Internal Medicine : Donna Jaffe [...] & hypotension , and was transferred [place] [facility] for high level [facility] care & after [...] modified according to his recommendations. , from [facility] , was consulted & pt had Lt knee aspiration & recommended either Amputation or to transfer pt. to [facility] for Dr.O' Knapp to decide putting in [...] BID fluticasone 50 mcg/inh nasal spray 2 [place], PRN, Nostrils Both, BID Lasix 40 mg [...] 0.9% 50 mL 2 Gram, IV Piggyback, [id number] cyanocobalamin 1,000 mcg tab 5,000 mcg 5 Tab, Oral, Daily docusate sodium 100 mg cap 100 mg 1 Cap, Oral, BID DULoxetine DR 60 mg cap 60 mg 1 Cap, Oral, Daily influenza vaccine, quadrivalent 0.5 mL, IntraMuscular, [id number] levothyroxine 100 mcg tab 100 mcg 1 [...] Oral, Q4H fluticasone 0.05% nasal spray 2 [place], Nostrils Both, BID gabapentin 300 mg cap [...] swelling, No deformity, Normal gait. Integumentary: Warm, [place], Intact, No pallor, No rash, cellulitis Lt [...] ID recommendations final treatment plan per ortth.. documented in this encounter Plan of Treatment Not on file documented as of this encounter Visit Diagnoses Not on filedocumented in this encounter
--- OUTSIDE RECORDS SUMMARY | 2024-08-30 07:37 | XMS_ITS | Encounter Summary ---
Author Organization [employer] ([place], [place], [place], [place]) Address [address] [place] [address] Care Team Providers Care Tree Trimming Line Technician Name Role Phone Unavailable Primary Care Provider Unavailabl e Encounter Details Date Type Department Care Team (Late st Contact Info) Description 07/13/2019 Transcribed Document [facility] [facility] [place] [facility] [place] [address] ProviderMariela MD [address] [place] [address] Social History Tobacco Use Types [...] 07/13/2019 1400 received call from Ratna with [facility] offering patient a bed, [facility] and needed a current height and weight. Still waiting to see if any other bed offers come through. I also sent referral to [facility]. Care Management Note Report : YOANNA ARAUJO RN - 07/13/19 11:04:03 Yoanna Araujo 07/13/2019 1100 faxed out referral for placement for patient to [facility] nursing and rehab, [facility] facilities and triology facilities. Awaiting call backs. СВЕТЛАНА WANG - 07/12/19 12:19:17 07/12/2019 Fax received from [facility] with approval for LTAC services with a request for updated discharge plans and clinical info to support needs if not discharged. Auth#[id number]. Clinical review or discharge summary to be faxed by 07/17/2019. YOANNA ARAUJO RN - 07/12/19 08:39:48 Yoanna Araujo 07/12/2019 0830 - faxed clinical review the [facility] at [phone] to request approval for extended ltac services. Auth#[id number], awaiting approval. YOANNA ARAUJO RN - 06/29/19 [...] health and she has been to the [facility] and [facility] in the past. She has the following equipment at home: wheel chair, walker, cane and shower chair. Her discharge plan is to go to rehab prior to returning home. PCP: Flavia MARQUEZ [address] [place] [address] Wire Harness Assembler: Dr. Sehmar Barger [id number] Clemente Del Rio MD - Rheumatology - [address] [place] [address] Preferences: Home Health: [facility]: no preferences DME: [facility] - [address] [place] [address] Longterm: [facility] facility: no preferences Will continue to monitor patient for anticipated discharge needs YOANNA ARAUJO RN - 06/29/19 08:30:20 Yoanna Araujo 06/29/2019 0830 received fax from [facility] with approval for extended ltac coverage with next clinical review due on 07/12/2019. Auth#[id number]. Will continue to follow for anticipated discharge needs. YOANNA ARAUJO RN - 06/28/19 08:35:06 Yoanna Araujo 06/28/2019 0830 Faxed clinical review to [facility] at to request approval for extended Ltac services. Auth#[id number]. Pending Approval. Documentation Status Complete : Yes YOANNA ARAUJO RN - 07/13/2019 14:29 EDT documented in this encounter Plan of Treatment Not on file documented as of this encounter Visit Diagnoses Not on filedocumented in this encounter
--- OUTSIDE RECORDS SUMMARY | 2024-08-30 07:37 | XMS_ITS | Encounter Summary ---
Author Organization [employer] ([place], [place], [place], [place]) Address [address] [place] [address] Care Team Providers Care Drying Tumbler Operator Name Role Phone Unavailable Primary Care Provider Unavailabl e Encounter Details Date Type Department Care Team (Late st Contact Info) Description 06/28/2019 Transcribed Document [facility] [place] [facility] [place] [address] ProviderMariela MD [address] [place], [place] [phone] Social History Tobacco Use Types Packs/Day Years [...] TAN BRYANT RN Interdisciplinary Rounds Working Summary [facility] Interdisciplinary Rounds Note : 06/27: 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
--- OUTSIDE RECORDS SUMMARY | 2024-08-30 07:37 | XMS_ITS | Encounter Summary ---
Author Organization [employer] ([place], [place], [place], [place]) Address [address] [place] [address] Care Team Providers Care Operating Theatre Technician Name Role Phone Unavailable Primary Care Provider Unavailabl e Encounter Details Date Type Department Care Team (Late st Contact Info) Description 08/22/2018 Transcribed Document [facility] [place] [address] ProviderMariela MD [address] [place] [address] Social History Tobacco Use Types Packs/Day [...] Conversion Note - Mariela ProviderMD - 08/22/2018 12:12 PM CDT Evaluation, Occupational Therapy Entered On: 08/22/2018 13:44 EDT Performed On: 08/22/2018 13:12 EDT by EDIN DRAKE, OTR/L General Information, OT Visit Type, OT : Initial evaluation Patient Orders : Order Date Order Ordering 08/22/2018 12:14 OT Evaluation and Treatment Ordered By: NIMO SAENZ MD-ORAmina 08/22/2018 12:14 OT Treatment Instructions Ordered By: NIMO SAENZ MD-ORT Active Diagnoses : No Qualifying Diagnoses [...] Moderate assistance (Comment: x2 [EDIN DRAKE OTR/Bartolo - 08/22/2018 13:33 EDT] ) Bed to Chair : Rehab Moderate assistance (Comment: x2 [EDIN DRAKE OTR/Bartolo - 08/22/2018 13:33 EDT] ) Stand to Sit : Rehab Moderate assistance (Comment: x2 [EDIN DRAKE OTR/Bartolo - 08/22/2018 13:33 EDT] ) EDIN DRAKE OTR/L - 08/22/2018 13:33 EDT Functional MobilityComment : mod/max [...] Response : Intact EDIN DRAKE OTR/L - 08/22/2018 13:33 EDT Cognition Assessment, OT Orientation : Oriented x 4 Cognition Assessment Comment : pt still quite drowsy during eval having difficulty following instruction at times EDIN DRAKE OTR/L - 08/22/2018 13:33 EDT Education OT Occupational Therapy Education Grid Activity of Daily Living Training : Returns demonstration, Needs further teaching Functional Mobility Training : Returns demonstration, Needs further teaching Home Safety : Needs further teaching EDIN DRAKE OTR/L - 08/22/2018 13:33 EDT Indication Assessment, OT Occupational Therapy Indicated : Yes Problem List, OT : Impaired, activities daily living, Impaired functional mobility, Impaired, joint mobility, Impaired, transfers Potential Barriers, OT : Acuity of illness, Pain Rehabilitation Potential, OT : Good EDIN DRAKE OTR/L - 08/22/2018 13:33 EDT Plan of Care, OT OT Tx Plan/Goals Established w Patient : Yes OT Frequency Rehab : Other: 3-5x/week Other OT Treatment Provided This Date : ADL OT Duration Rehab : Seven Days OT Treatments Planned : Activities of daily living, Caregiver training, Functional mobility training, Safety education, Therapeutic activities, Therapeutic exercises EDIN DRAKE OTR/Bartolo - 08/22/2018 13:33 EDT Ell Tutor Goals, OT Other LTG Grid Goal #1 [...] goal Initial goal EDIN DRAKE OTR/L - 08/22/2018 13:33 EDT EDIN DRAKE OTR/Bartolo [...] EDIN DRAKE OTR/Bartolo - 08/22/2018 13:33 EDT documented in this encounter Plan of Treatment Not on file documented as of this encounter Visit Diagnoses Not on filedocumented in this encounter
--- OUTSIDE RECORDS SUMMARY | 2024-08-30 07:37 | XMS_ITS | Encounter Summary ---
Author Organization [employer] ([place], [place], [place], [place]) Address [address] [place] [address] Care Team Providers Care Vending Service Technician Name Role Phone Unavailable Primary Care Provider Unavailabl e Encounter Details Date Type Department Care Team (Late st Contact Info) Description 07/13/2019 Transcribed Document [facility] [place] [address] [place] [address] ProviderMariela MD [address] [place], [place] [phone] Social History Tobacco Use Types Packs/Day Years [...] Reviewed : Yes Bibi Gallagher RN - 07/13/2019 4:34 EDT Electronically signed by Chantal [facility] Conversion Production Solderer Min at 06/16/2022 8:10 PM CDT documented in this encounter Plan of Treatment Not on file documented as of this encounter Visit Diagnoses Not on filedocumented in this encounter
--- OUTSIDE RECORDS SUMMARY | 2024-08-30 07:37 | XMS_ITS | Encounter Summary ---
Author Organization [employer] ([place], [place], [place], [place]) Address [address] [place] [address] Care Team Providers Care Electronics Engineering Professor Name Role Phone Unavailable Primary Care Provider Unavailabl e Encounter Details Date Type Department Care Team (Late st Contact Info) Description 06/27/2019 Transcribed Document [facility] [place] [facility] [place] [address] ProviderMariela MD [address], [place] [phone] Social History Tobacco Use Types Packs/Day Years [...] Historical ProviderMD - 06/27/2019 2:00 AM CDT Beam Dyer Recessed Vat Details Entered On: 06/27/2019 3:56 EDT Performed [...]
--- OUTSIDE RECORDS SUMMARY | 2024-08-30 07:37 | XMS_ITS | Encounter Summary ---
Author Organization [employer] ([place], [place], [place], [place]) Address [address] [place] [address] Care Team Providers Care Editor Trade Journal Name Role Phone Unavailable Primary Care Provider Unavailabl e Encounter Details Date Type Department Care Team (Late st Contact Info) Description 08/11/2018 Transcribed Document [facility] [place] Family [place] [facility] [place] [address] ProviderMariela MD [address] [place] [address] Social History Tobacco Use Types Packs/Day [...] Source : Stated Height Entry Format : [place] Height, Feet : 4 ft(Converted to: 122 cm, 48 Inch) Height, Inches : 11.5 Inch(Converted to: 0 ft 12 Inch, 29.21 cm) Clinical Height : 151.13 cm Weight Source : Standing scale Weight Entry Format : [place] Clinical Dosing Weight : 97.73 kg Weight, Pounds : 215 lb Body Surface Area (BSA) : 1.91 m2 Body Mass Index : 42.8 kg/m2 (>HHI) [place] Body Weight : 44 kg Karen Flores [...] With Traveler to Advisory Region : No Tuberculosis Symptoms : None [...] Ambulatory Legal Guardian : Son Support Person/Patient Police Specialist : Yes Support Person/Pt Rep Name : Sam Rust Yen Support Person/Pt Rep Contact Information : son (Sam) [phone] (Nancy Rust [phone] Want Family/Rep/Phys Notified of Admit : No Emergency Contact #1 : Sy Emergency Contact #1 Emergency Contact #1 Relationship : son Emergency Contact #2 : . Emergency Contact #2 Phone Number : . Emergency Contact #2 Relationship : . Information Obtained From : Patient Primary Language : Tanzanian Preferred Communication Mode : Verbal Communication Barrier [...] Karen Flores Rn - 08/11/2018 14:36 EDT documented in this encounter Plan of Treatment Not on file documented as of this encounter Visit Diagnoses Not on filedocumented in this encounter
--- OUTSIDE RECORDS SUMMARY | 2024-08-30 07:37 | XMS_ITS | Encounter Summary ---
Author Organization [employer] ([place], [place], [place], [place]) Address [address] [place] [address] Care Team Providers Care School Clerk Name Role Phone Unavailable Primary Care Provider Unavailabl e Encounter Details Date Type Department Care Team (Late st Contact Info) Description 08/22/2018 Transcribed Document [facility] [place] Family Medicine [facility] [place] [address] ProviderMariela MD [facility] [place], [place] [id number] Social History Tobacco Use Types Packs/Day Years [...] Conversion Note - Historical ProviderMD - 08/22/2018 12:33 PM CDT Admission History, [...] Wheelchair Legal Guardian : Son Support Person/Patient Accountant Machine Processing : Yes Support Person/Pt Rep Name : Sam Rust Yen Support Person/Pt Rep Contact Information : son Vipul) [phone] (Nancy Rust [phone] Want Family/Rep/Phys Notified of Admit : No Emergency Contact #1 : Sy Emergency Contact #1 Emergency Contact #1 Relationship : son Emergency Contact #2 : . Emergency Contact #2 Phone Number : . Emergency Contact #2 Relationship : . Information Obtained From : Patient Primary Language : Yakut Preferred Communication Mode : Verbal Communication Barrier [...] Level : 46 or > High Risk [place] Fall Interventions : Adequate lighting, Assistive devices [...] Source : Stated Height Entry Format : [place] Height, Feet : 4 ft(Converted to: 122 cm, 48 Inch) Height, Inches : 11.5 Inch(Converted to: 0 ft 12 Inch, 29.21 cm) Clinical Height : 151.13 cm Weight Source : Standing scale Weight Entry Format : [place] Clinical Dosing Weight : 97.73 kg Weight, Pounds : 215 lb Body Surface Area (BSA) : 1.91 m2 Body Mass Index : 42.8 kg/m2 (>HHI) [place] Body Weight : 44 kg Vianca Morgan [...] History Weight Entry Format Nutrition History : [place] Usual Weight, Pounds : 210 lb Clinical [...]
--- OUTSIDE RECORDS SUMMARY | 2024-08-30 07:37 | XMS_ITS | Encounter Summary ---
Author Organization [employer] ([place], [place], [place], [place]) Address [address] [place] [address] Care Team Providers Care Telegraphic Typewriter Installer Name Role Phone Unavailable Primary Care Provider Unavailabl e Encounter Details Date Type Department Care Team (Late st Contact Info) Description 08/30/2018 Transcribed Document [facility] [place] Family Medicine [facility] [address] ProviderMariela MD [facility] [place], [place] [id number] Social History Tobacco Use Types Packs/Day Years Used Date Smoking Tobacco: Never Assessed Comments Unknown Sex and Gender Information Value Date Recorded Sex Assigned at Female 09/02/2021 8:57 PM CDT Legal Sex Female 6:58 PM CDT Gender Identity Female 09/02/2021 8:57 PM CDT Sexual Orientation Not on file documented as of this encounter Miscellaneous Notes * Cerner Conversion Note - Mariela ProviderMD - 08/30/2018 12:06 PM CDT UM Authorization Entered On: 08/30/2018 12:07 EDT Performed On: 08/30/2018 12:06 EDT by TIESHA AQUINO RN-Utilization Review Primary Insurance Authorization Authorization and Policy Numbers : Insurance 1 Health Plan: [facility] MEDICARE ADVANTAGE Policy Number: [id number] Authorization Number: [id number] Insurance Primary Name : UHC medicare advantage [id number] Authorization Status-Primary : Admit approved Reference Number-Primary : [id number] Authorization Number-Primary : [id number] Authorized Service Begin Date-Primary : 08/22/2018 EDT Authorized Service End Date-Primary : 08/29/2018 EDT Authorization Comments-Primary : [facility] approved per website Historical Authorization Comments-Primary : Comment 1: Clinicals faxed to [facility] via [employer] (Jett Arroyo Mkt Print Production Associate-Utilization Mgt 08/23/2018 09:50) TIESHA AQUINO RN-Utilization Review - 08/30/2018 12:06 EDT documented in this encounter Plan of Treatment Not on file documented as of this encounter Visit Diagnoses Not on filedocumented in this encounter
--- OUTSIDE RECORDS SUMMARY | 2024-08-30 07:37 | XMS_ITS | Encounter Summary ---
Author Organization [employer] ([place], [place], [place], [place]) Address [address] [place] [address] Care Team Providers Care Wax Bleacher Name Role Phone Unavailable Primary Care Provider Unavailabl e Encounter Details Date Type Department Care Team (Late st Contact Info) Description 06/28/2019 Transcribed Document [facility] [place] Family Medicine [facility] [place] [address] ProviderMariela MD [address] [place] [address] Social History Tobacco Use Types Packs/Day Years [...] OSKAR MARTÍNEZ, PT - 06/28/2019 9:26 EDT Electronically signed by Chantal [facility] Conversion Procedures Nurse Cerner at 06/16/2022 8:28 PM CDT documented in this encounter Plan of Treatment Not on file documented as of this encounter Visit Diagnoses Not on filedocumented in this encounter
--- OUTSIDE RECORDS SUMMARY | 2024-08-30 07:37 | XMS_ITS | Encounter Summary ---
Author Organization [employer] ([place], [place], [place], [place]) Address [address] [place] [address] Care Team Providers Care Shank Stitcher Name Role Phone Unavailable Primary Care Provider Unavailabl e Encounter Details Date Type Department Care Team (Late st Contact Info) Description 08/22/2018 Transcribed Document [facility] Family Medicine [facility] [place] [address] ProviderMariela MD [address] [place] [address] Social History Tobacco Use Types Packs/Day [...] Mariela ProviderMD - 08/22/2018 12:12 PM CDT Pain [...]
--- OUTSIDE RECORDS SUMMARY | 2024-08-30 07:37 | XMS_ITS | Encounter Summary ---
Author Organization [employer] ([place], [place], [place], [place]) Address [address] [place] [address] Care Team Providers Care Straightener Gun Parts Name Role Phone Unavailable Primary Care Provider Unavailabl e Encounter Details Date Type Department Care Team (Late st Contact Info) Description 06/17/2019 Transcribed Document [facility] [place] Family Medicine [facility] [place] [address] ProviderMariela MD [facility] [place] [address] Social History Tobacco Use Types [...] Conversion Note - Mariela ProviderMD - 06/17/2019 5:09 AM CDT Patient: SOFIA BARLOW Age: 79 years Sex: Female : 1940 Associated Diagnoses: None Author: ROJELIO NUNEZ, [facility] Pharmacy Note: Vancomycin per Pharmacy Clinical Pharmacy [...] levels and adjust as needed. Thanks, Pharmacy documented in this encounter Plan of Treatment Not on file documented as of this encounter Visit Diagnoses Not on filedocumented in this encounter
--- OUTSIDE RECORDS SUMMARY | 2024-08-30 07:37 | XMS_ITS | Encounter Summary ---
Author Organization [employer] ([place], [place], [place], [place]) Address [address] [place] [address] Care Team Providers Care Missile Inspector Preflight Name Role Phone Unavailable Primary Care Provider Unavailabl e Encounter Details Date Type Department Care Team (Late st Contact Info) Description 07/13/2019 Transcribed Document [facility] [place] Family Medicine [facility] [place] [address] ProviderMariela MD [address] [place] [id number] Social History Tobacco Use Types Packs/Day Years [...] Conversion Note - Mariela Gates MD - 07/13/2019 3:59 PM CDT Patient: SOFIA GILL Age: 79 [...] 0.9% 50 mL 2 Gram, IV Piggyback, R19GGly cyanocobalamin 1,000 mcg tab 5,000 mcg 5 [...] Oral, Q4H fluticasone 0.05% nasal spray 2 [place], Nostrils Both, BID magnesium hydroxide 8% liq [...] Wednesday. Electronically signed by Maureen Cornejo Conversion Manager Marketing Communication Cerner at 06/16/2022 8:08 PM CDT documented in this encounter Plan of Treatment Not on file documented as of this encounter Visit Diagnoses Not on filedocumented in this encounter
--- OUTSIDE RECORDS SUMMARY | 2024-08-30 07:37 | XMS_ITS | Encounter Summary ---
Author Organization [employer] ([place], [place], [place], [place]) Address [address] [place] [address] Care Team Providers Care Food Service Kitchen Supervisor Name Role Phone Unavailable Primary Care Provider Unavailabl e Encounter Details Date Type Department Care Team (Late st Contact Info) Description 06/27/2019 Transcribed Document [facility] [place] [facility] [place] [address] ProviderMariela MD [address] [place] [address] Social History Tobacco Use Types Packs/Day Years [...] 06/27/2019 10:09 EDT by MASSIEL HENDERSON PharmD, BCPS Interdisciplinary Rounds Working Summary Pharmacist Interdisciplinary Rounds Note : Patient on Ceftriaxone for left TKR sepsis. Clarified patient's penicillin allergy as not anaphylactic and has tolerated CTX in past. MASSIEL HENDERSON PharmD, BCPS - 06/27/2019 10:09 EDT Electronically signed by Maureen Cornejo Conversion Investment Recovery Technician Min at 06/16/2022 8:27 PM CDT documented in this encounter Plan of Treatment Not on file documented as of this encounter Visit Diagnoses Not on filedocumented in this encounter
--- OUTSIDE RECORDS SUMMARY | 2024-08-30 07:37 | XMS_ITS | Encounter Summary ---
Author Organization [employer] ([place], [place], [place], [place]) Address [address] [place] [address] Care Team Providers Care Veterinary Bacteriologist Name Role Phone Unavailable Primary Care Provider Unavailabl e Encounter Details Date Type Department Care Team (Late st Contact Info) Description 08/11/2018 Transcribed Document [facility] [place] [facility] [place] [address] ProviderMariela MD [address] [place] [address] Social History Tobacco Use Types Packs/Day [...] - 08/11/2018 2:55 PM CDT Patient: SOFIA BARLOW Age: 78 Years Sex: Female : 1940 Chief Complaint Right Knee Pain Primary Care Provider NILA CHO, [facility] History of Present Illness This patient [...] FEMORAL W SYNTH SUB, CEMENT, 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
--- OUTSIDE RECORDS SUMMARY | 2024-08-30 07:37 | XMS_ITS | Encounter Summary ---
Author Organization [employer] ([place], [place], [place], [place]) Address [address] [place] [address] Care Team Providers Care Ward Aide Name Role Phone Unavailable Primary Care Provider Unavailabl e Encounter Details Date Type Department Care Team (Late st Contact Info) Description 06/16/2019 Transcribed Document [facility] [place] [facility] [place] [address] ProviderMariela MD [address] [place] [address] Social History Tobacco Use Types Packs/Day [...]
--- OUTSIDE RECORDS SUMMARY | 2024-08-30 07:37 | XMS_ITS | Encounter Summary ---
Author Organization [employer] ([place], [place], [place], [place]) Address [address] [place] [address] Care Team Providers Care Manager New Product Name Role Phone Unavailable Primary Care Provider Unavailabl e Encounter Details Date Type Department Care Team (Late st Contact Info) Description 07/13/2019 Transcribed Document [facility] [facility] [address] ProviderMariela MD [address] [place] [address] Social History Tobacco Use Types Packs/Day [...] Cerner Conversion Note - Mariela ProviderMD - 07/13/2019 8:58 AM CDT Patient: SOFIA GILL Age: 79 years Sex: Female : 1940 Associated Diagnoses: None Author: CHRISSY HENDERSON, PharmD, BCPS HPI: 06/15 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
--- OUTSIDE RECORDS SUMMARY | 2024-08-30 07:37 | XMS_ITS | Encounter Summary ---
Author Organization [employer] ([place], [place], [place], [place]) Address [address] [place] [address] Care Team Providers Care Packager And Strapper Name Role Phone Unavailable Primary Care Provider Unavailabl e Encounter Details Date Type Department Care Team (Late st Contact Info) Description 07/13/2019 Transcribed Document [facility] [place] [facility] [place] [address] ProviderMariela MD [address] [place] [address] Social History Tobacco Use Types Packs/Day Years [...] Caitlyn Chauhan Rn - 07/13/2019 13:51 EDT documented in this encounter Plan of Treatment Not on file documented as of this encounter Visit Diagnoses Not on filedocumented in this encounter
--- OUTSIDE RECORDS SUMMARY | 2024-08-30 07:37 | XMS_ITS | Encounter Summary ---
Author Organization [employer] ([place], [place], [place], [place]) Address [address] [place] [address] Care Team Providers Care Patch Machine Operator Name Role Phone Unavailable Primary Care Provider Unavailabl e Encounter Details Date Type Department Care Team (Late st Contact Info) Description 08/31/2018 Transcribed Document [facility] Medicine [facility] [place] [address] ProviderMariela MD [address] [place] [address] Social History Tobacco Use Types Packs/Day Years [...] EDT Electronically signed by Maureen Cornejo Conversion Physician Assistant Psychiatry Cerner at 06/16/2022 8:03 PM CDT documented in this encounter Plan of Treatment Not on file documented as of this encounter Visit Diagnoses Not on filedocumented in this encounter
--- OUTSIDE RECORDS SUMMARY | 2024-08-30 07:37 | XMS_ITS | Encounter Summary ---
Author Organization [employer] ([place], [place], [place], [place]) Address [address] [place] [address] Care Team Providers Care Information Services Assistant Name Role Phone Unavailable Primary Care Provider Unavailabl e Encounter Details Date Type Department Care Team (Late st Contact Info) Description 06/28/[address] [facility] [place] Family Medicine [address] [place] [address] ProviderMairela MD [address] [place] [address] Social History Tobacco Use Types Packs/Day Years [...] Araujo 06/28/2019 0830 Faxed clinical review to [facility] at to request approval for extended Ltac services. Auth#[id number]. Pending Approval. Documentation Status Complete : Yes YOANNA ARAUJO RN - 06/28/2019 8:33 EDT Electronically signed by Chantal [facility] Conversion Industrial Engineering Cerner at 06/16/2022 8:09 PM CDT documented in this encounter Plan of Treatment Not on file documented as of this encounter Visit Diagnoses Not on filedocumented in this encounter
--- OUTSIDE RECORDS SUMMARY | 2024-08-30 07:38 | XMS_ITS | Encounter Summary ---
Author Organization [employer] ([place], [place], [place], [place]) Address [address] [place] [address] Care Team Providers Care Steamboat Inspector Name Role Phone Unavailable Primary Care Provider Unavailabl e Encounter Details Date Type Department Care Team (Late st Contact Info) Description 06/29/2019 Transcribed Document [facility] [place] [address] ProviderMariela MD [address] [place], [place] [phone] Social History Tobacco Use Types Packs/Day Years [...] Conversion Note - Mariela ProviderMD - 06/29/2019 8:26 AM CDT Care Management Assessment/Plan Entered On: 06/29/2019 8:30 EDT Performed On: 06/29/2019 8:26 EDT by YOANNA ARAUJO RN Care Management Note Care Management Note : Yoanna Araujo 06/29/2019 08 received fax from [facility] with approval for extended ltac coverage with next clinical review due on 07/12/2019. Auth#[id number]. Will continue to follow for anticipated discharge needs. Care Management Note Report : YOANNA ARAUJO RN - 06/28/19 08:35:06 Yoanna Araujo 06/28/2019 0830 Faxed clinical review to [facility] at to request approval for extended Ltac services. Auth#[id number]. Pending Approval. Documentation Status Complete : Yes YOANNA ARAUJO RN - 06/29/2019 8:26 EDT documented in this encounter Plan of Treatment Not on file documented as of this encounter Visit Diagnoses Not on filedocumented in this encounter
--- OUTSIDE RECORDS SUMMARY | 2024-08-30 07:38 | XMS_ITS | Encounter Summary ---
Author Organization [employer] ([place], [place], [place], [place]) Address [address] [place] [address] Care Team Providers Care Cotton Bag Clipper Name Role Phone Unavailable Primary Care Provider Unavailabl e Encounter Details Date Type Department Care Team (Late st Contact Info) Description 08/24/2020 Transcribed Document [facility] [place] Family [place] [address] ProviderMariela MD [place] [address] Social History Tobacco Use Types [...] form. Electronically signed by Maureen Cornejo Conversion International Project Manager Cerner at 06/16/2022 8:30 PM CDT documented in this encounter Plan of Treatment Not on file documented as of this encounter Visit Diagnoses Not on filedocumented in this encounter
--- OUTSIDE RECORDS SUMMARY | 2024-08-30 07:38 | XMS_ITS | Encounter Summary ---
Author Organization [employer] ([place], [place], [place], [place]) Address [address] [place] [address] Care Team Providers Care Veneer Supervisor Name Role Phone Unavailable Primary Care Provider Unavailabl e Encounter Details Date Type Department Care Team (Late st Contact Info) Description 08/22/2018 Transcribed Document [facility] [place] [facility] [place] [address] ProviderMariela MD [address] [place] [address] Social History Tobacco Use Types Packs/Day [...] Conversion Note - Mariela ProviderMD - 08/22/2018 3:00 PM CDT Pain [...]
--- OUTSIDE RECORDS SUMMARY | 2024-08-30 07:38 | XMS_ITS | Patient Health Record ---
Author Organization [employer] [place] Address [address] [place] [id number] Care Team Providers Care Frame Table Operator Name Role Phone Migration, Provider Unavailable Unavailable Reason For Referral No Information Medications Medication SIG (Take, Route, Frequency, Duration) Notes Start Date End Date Status Ventolin HFA 108 (90 Base) MCG/ACT Aerosol Solution 2 puff(s) inhaled 4 times a day; Duration: 30 day(s) Active Gabapentin 300 MG Capsule 1 cap(s) orally 3 times a day; Duration: 30 day(s) Active Fluticasone Propionate 50 MCG/ACT Suspension 1 spray(s) intranasally once a day; Duration: 30 day(s) Active traMADol HCl 50 MG Tablet 1 tab(s) orally every 4 hours prn Active Diclofenac Sodium 75 MG Tablet Delayed Release 1 tab(s) orally 2 times a day; Duration: 30 day(s) Active Levothyroxine Sodium 100 MCG Tablet 1 tab(s) orally once a day; Duration: 30 day(s) Active Colace 100 MG Capsule 1 cap(s) orally 2 times a day Active Lisinopril 10 MG Tablet 1 tab(s) orally once a day; Duration: 30 day(s) Active Caltrate 600+D Plus Minerals 600-800 MG-UNIT Tablet 1 tab(s) orally 2 times a day; Duration: 30 day(s) Active Levocetirizine Dihydrochloride 5 MG Tablet 1 tab(s) orally once a day (in the evening); Duration: 30 day(s) Active Aspirin 81 MG Tablet Delayed Release 1 tab(s) orally once a day; Duration: 30 day(s) Active Lasix 40 MG Tablet 1 tab(s) orally once a day; Duration: 30 day(s) Active Keflex 500 MG CAPSULE 1 CAP(S) ORALLY EVERY 12 HOURS; Duration: 10 DAY(S) *Please review and pick correct strength-formulat ion from [employer] options. If intended option is not shown, discontinue and re-order from Quick Search* Active Cymbalta 60 MG Capsule Delayed Release Particles 1 cap(s) orally once a day; Duration: 30 day(s) Active Potassium Chloride 20MEQ 1XDAY PO *Please review and pick correct strength-formulat ion from [employer] options. If intended option is not shown, discontinue and re-order from Quick Search* Active Cyanocobalamin 5000 MCG TABLET, EXTENDED RELEASE 1 TAB(S) ORALLY ONCE A DAY *Please review and pick correct strength-formulat ion from [employer] options. If intended option is not shown, discontinue and re-order from Quick Search* Active oxyCODONE HCl 5 MG Tablet 1 tab(s) orally every 6 hours prn Active Crestor 10 MG Tablet 1 tab(s) orally once a day; Duration: 30 day(s) Active MiraLax - POWDER FOR RECONSTITUTION DIRECTED ORALLY ONCE A DAY; Duration: 7 DAY(S) *Please review and pick correct strength-formulat ion from [employer] options. If intended option is not shown, discontinue and re-order from Quick Search* Active COQ10 (OBSOLETE) 300 MG CAPSULE 1 CAP(S) ORALLY ONCE A DAY *Please review for potential replacement for e-prescription and drug interaction check* Active Magnesium Citrate 125 MG Capsule 2 cap(s) orally once a day Active Social History Section Notes: denies current tobacco or alcohol abuse full code willows citation Problems Problem Type SNOMED Code ICD Code Onset Dates Problem Status W/U Status Risk Notes Problem Essential (primary) hypertension (I10) Active confirmed Problem Peripheral venous insufficiency (16866036) Venous insufficiency (chronic) (peripheral) (I87.2) Active confirmed Problem Post-traumatic gonarthrosis, 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 Problem Gastro-esophageal reflux disease without esophagitis (024516285) Gastro-esophageal reflux disease without esophagitis (K21.9) Active confirmed Encounters Encounter Location Date Provider Diagnosis [place] [address] [place] [address] 08/05/2024 Provider Migration Plan Of Treatment No Information Insurance Providers Payer Name Payer Address Payer Phone Subscriber Number Group Number Insured Name Patient Relationship to Insured Coverage Start Date Coverage End Date [employer] [address] [address] [place] [address] [phone] [id number] Sy Barlow Self - patient is the insured Medical (General) History Surgical History Surgery Date(Month/Year) 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
--- OUTSIDE RECORDS SUMMARY | 2024-08-30 07:38 | XMS_ITS | Encounter Summary ---
Author Organization [employer] ([place], [place], [place], [place]) Address [address] [address] Care Team Providers Care Final Dressing Cutter Name Role Phone Unavailable Primary Care Provider Unavailabl e Encounter Details Date Type Department Care Team (Late st Contact Info) Description 06/26/2019 Transcribed Document [facility] [facility] [place] [address] ProviderMariela MD [address] [place] [address] Social History Tobacco Use Types [...] of blood. Pt scheduled to [facility] at 1700 on this date. Notification : Will attempt again as time permits. ROBERT HAIRSTON OTR/Bartolo - 06/26/2019 11:55 EDT Electronically signed by Maureen Cornejo Conversion Numerical Control Tool Programmer Min at 06/16/2022 8:21 PM CDT documented in this encounter Plan of Treatment Not on file documented as of this encounter Visit Diagnoses Not on filedocumented in this encounter
--- OUTSIDE RECORDS SUMMARY | 2024-08-30 07:38 | XMS_ITS | Encounter Summary ---
Author Organization [employer] ([place], [place], [place], [place]) Address [address] [place] [address] Care Team Providers Care Wildlife Refuge Manager Name Role Phone Unavailable Primary Care Provider Unavailabl e Encounter Details Date Type Department Care Team (Late st Contact Info) Description 06/18/2019 Transcribed Document [facility] [place] [facility] [place] [address] ProviderMariela MD [address] [place] [id number] Social History Tobacco Use Types Packs/Day Years [...] Conversion Note - Historical ProviderMD - 06/18/2019 1:46 PM CDT Patient: SOFIA [...] ceftriaxone. She reportedly did follow up with [facility] office. She reportedly had her left [...] ambulation. Due to this she presented to [facility]. There she had a CT of the [...] orthopedic history she was subsequently transferred to [facility] for further evaluation of the left knee. Blood cultures from [facility] with Group B Strep. Since arrival [...] 50 m - 2 Gram, IV Piggyback, [id number], infuse over 30 Minute(s), Routine clindamycin - [...] (fluticasone 50 mcg/inh nasal spray) - 2 York, Nostrils Both, York, BID, PRN for Allergies, Routine Pain Meds [...] 16) ALB L 2.0 (JUN 16) Micro: [facility]: 06/15 [facility] Blood cultures positive for group B strep and /2 bottles [facility]: 06/16 fluid aspiration of left [...] care on Wednesday. Call if any questions. Electronically signed by Chantal [facility] Conversion Tightening Machine Operator Cerner at 06/16/2022 8:02 PM CDT documented in this encounter Plan of Treatment Not on file documented as of this encounter Visit Diagnoses Not on filedocumented in this encounter
--- OUTSIDE RECORDS SUMMARY | 2024-08-30 07:38 | XMS_ITS | Encounter Summary ---
Author Organization [employer] ([place], [place], [place], [place]) Address [address] [place] [address] Care Team Providers Care Plumbing Technician Name Role Phone Unavailable Primary Care Provider Unavailabl e Encounter Details Date Type Department Care Team (Late st Contact Info) Description 08/20/2020 Transcribed Document [facility] [place] Medicine [facility] [place] [address] ProviderMariela MD [facility] [place] [address] Social History Tobacco Use Types [...] Cerner Conversion Note - Mariela ProviderMD - 08/20/2020 3:22 PM CDT Procedural [...] RN Procedure Case Attendee Role 3 : associate material handler Case Attendee 3 : THIERRY GOODRICH, associate material handler Case Attendee Role 4 : Observer Procedure Case Attendee 4 : Bridget Jauregui RN ELDER, JEAN M, RN - 08/20/2020 15:22 EDT documented in this encounter Plan of Treatment Not on file documented as of this encounter Visit Diagnoses Not on filedocumented in this encounter
--- OUTSIDE RECORDS SUMMARY | 2024-08-30 07:38 | XMS_ITS | Encounter Summary ---
Author Organization [employer] ([place], [place], [place], [place]) Address [address] [place] [address] Care Team Providers Care Container Finishing Inspector Name Role Phone Unavailable Primary Care Provider Unavailabl e Encounter Details Date Type Department Care Team (Late st Contact Info) Description 06/29/2019 Transcribed Document [facility] [place] Family Medicine [address] [place] [address] ProviderMariela MD [address] [place], [place] [id number] Social History Tobacco Use Types Packs/Day Years [...] Reviewed : Yes Bibi Gallagher RN - 06/29/2019 3:42 EDT documented in this encounter Plan of Treatment Not on file documented as of this encounter Visit Diagnoses Not on filedocumented in this encounter
--- OUTSIDE RECORDS SUMMARY | 2024-08-30 07:38 | XMS_ITS | Encounter Summary ---
Author Organization [employer] ([place], [place], [place], [place]) Address [address] [place] [address] Care Team Providers Care Financial Operations Consultant Name Role Phone Unavailable Primary Care Provider Unavailabl e Encounter Details Date Type Department Care Team (Late st Contact Info) Description 08/22/2018 Transcribed Document [facility] [place] [facility] [place] [address] ProviderMariela MD [facility] [place] [address] Social History Tobacco Use Types [...] Time : 14 Minute(s) RAFAT LEIGH PTA - 08/25/2018 15:45 EDT Edu Topics Physical Therapy Education Grid Home Program/Exercises : Verbalizes understanding, Returns demonstration RAFAT LEIGH PTA - 08/25/2018 15:45 EDT Plan of Care, PT PT Tx Plan/Goals Established w Patient : Yes RAFAT LEIGH PTA - 08/25/2018 15:45 EDT Civil Division Deputy Sheriff Goals Other PT LTG Grid Goal #1 Goal #2 Goal #3 Other : Patient will ambulate at least 50 feet with RWx and no more than Alexandra without LOB or safety concerns to allow safe household or facility ambulation upon [facility] [place]. Patient will participate with [...] PTA - 08/25/2018 15:45 EDT RAFAT LEIGH, [facility] - 08/25/2018 15:45 EDT RAFAT LEIGH, [facility] - 08/25/2018 15:45 EDT Treatment Note Subjective [...] be discharged from skilled therapy while at [facility] secondary to flexion restriction and being independent with HEP Plan for Treatment : Discontinue physical therapy per supervising physical therapist. RAFAT LEIGH, [facility] - 08/25/2018 15:45 EDT Pain Assessment Pain Comment : NO c/o pain at rest. RAFAT LEIGH, [facility] - 08/25/2018 15:45 EDT Image 1 - Images currently included in the form version of this document have not been included in the text rendition version of the form. [place] PT Charges PT Therap. Exercise 15 min : 1 RAFAT LEIGH [facility] - 08/25/2018 15:45 EDT documented in this encounter Plan of Treatment Not on file documented as of this encounter Visit Diagnoses Not on filedocumented in this encounter
--- OUTSIDE RECORDS SUMMARY | 2024-08-30 07:38 | XMS_ITS | Encounter Summary ---
Author Organization [employer] ([place], [place], [place], [place]) Address [address] [place] [address] Care Team Providers Care Picker Name Role Phone Unavailable Primary Care Provider Unavailabl e Encounter Details Date Type Department Care Team (Late st Contact Info) Description 06/17/2019 Transcribed Document [facility] [place] [facility] [place] [address] ProviderMariela MD [address] [place], [place] [phone] Social History Tobacco Use Types Packs/Day Years [...] Note - Mariela Gates MD - 06/17/2019 10:02 AM CDT UM Authorization Entered On: 06/17/2019 10:05 EDT Performed On: 06/17/2019 10:02 EDT by Michelle Jimenez Rn-Utilization Review Primary Insurance Authorization Authorization and Policy Numbers : Insurance 1 Health Plan: [facility] MEDICARE ADVANTAGE Policy Number: [id number] Authorization Number: Insurance Primary Name : [facility] MEDICARE ADVANTAGE Policy Number: [id number] Authorization Status-Primary : Pending clinicals Authorized Service Begin Date-Primary : 06/16/2019 EDT Authorization Comments-Primary : Attempted auth on [facility] portal, message that notification cannot be completed online, Call number on back of card Historical Authorization Comments-Primary : No Authorization Comments Found Michelle Jimenez Rn-Utilization Review - 06/17/2019 10:02 EDT Electronically signed by Chantal mandeep Conversion Weatherization Administrator Cerner at 06/16/2022 8:25 PM CDT documented in this encounter Plan of Treatment Not on file documented as of this encounter Visit Diagnoses Not on filedocumented in this encounter
--- OUTSIDE RECORDS SUMMARY | 2024-08-30 07:38 | XMS_ITS | Encounter Summary ---
Author Organization [employer] ([place], [place], [place], [place]) Address [address] [place] [address] Care Team Providers Care Wire Loop Machine Operator Name Role Phone Unavailable Primary Care Provider Unavailabl e Encounter Details Date Type Department Care Team (Late st Contact Info) Description 07/11/2019 Transcribed Document [facility] [place] [facility] [place] [address] ProviderMariela MD [address] [place] [address] Social History Tobacco Use Types Packs/Day Years Used Date Smoking Tobacco: Never Assessed Comments Unknown Sex and Gender Information Value Date Recorded Sex Assigned at Female 09/02/2021 8:57 PM CDT Legal Sex Female 6:58 PM CDT Gender Identity Female 09/02/2021 8:57 PM CDT Sexual Orientation Not on file documented as of this encounter Miscellaneous Notes * Cerner Conversion Note - Mariela ProviderMD - 07/11/2019 9:00 AM CDT Pain [...]
--- OUTSIDE RECORDS SUMMARY | 2024-08-30 07:38 | XMS_ITS | Encounter Summary ---
Author Organization [employer] ([place], [place], [place], [place]) Address [address] [place] [address] Care Team Providers Care Otter Trawler Boatswain Name Role Phone Unavailable Primary Care Provider Unavailabl e Encounter Details Date Type Department Care Team (Late st Contact Info) Description 08/22/2018 Transcribed Document [facility] [place] Medicine [facility] [place] [address] ProviderMariela MD [address] [place] [address] Social History Tobacco Use Types Packs/Day [...] Conversion Note - Mariela ProviderMD - 08/22/2018 1:45 PM CDT Treatment [...] : 08/22/2018 07:12 Assisted by, OT : sociology research assistant (MACHINE FITTER) Personal Devices : Personal Devices No Devices Recorded Assistive Devices : Assistive Devices Wheelchair Precautions in Place : Fall prevention measures, high risk EDIN DRAKE OTR/Bartolo - 08/24/2018 12:50 EDT General Status Patient Received Status : Supine in bed, Other: polar care, scds Treatment Start Time : 08/24/2018 8:34 EDT Patient Left Status : Other: left seated with MACHINE FITTER in therapy gym RN/PCT Informed Comment : RN ok'd to tx, ID and verified Treatment End Time : 08/24/2018 8:59 EDT Treatment Time : 25 Minute(s) EDIN DRAKE OTR/Bartolo - 08/24/2018 12:50 EDT Self Care/Home Management, [...] w/c to mat and cues safety EDIN DRAKE OTR/Bartolo - 08/24/2018 12:50 EDT Mobility Device/Prosthesis/Wt Bearing Weight Bearing Status Maintained : Yes Weight Bearing Status : As tolerated Functional Mobility Device : Gait belt, Walker, front wheel Functional Mobility with Brace/Splint : No Mobility Device/Prosthesis/Wt Bearing Cmnt : pt no longer needs KI while up, ROM ok'd 0-60 degrees EDIN DRAKE OTR/Bartolo - 08/24/2018 12:50 EDT Functional Mobility Mobility Grid Supine to Sit : Rehab Minimal assistance Sit to Stand : Rehab Minimal assistance Bed to Chair : Rehab Minimal assistance Stand to Sit : Rehab Minimal assistance EDIN DRAKE OTR/Bartolo - 08/24/2018 12:50 EDT Functional MobilityComment : min assist transfers with KI removed to BSC , walks short distance with chair follow CGA using rw and gait belt, w/c to mat transfer min assist EDIN DRAKE OTR/Bartolo - 08/24/2018 12:50 EDT Education OT Occupational Therapy Education Grid Activity of Daily Living Training : Returns demonstration, Needs further teaching Functional Mobility Training : Returns demonstration, Needs further teaching EDIN DRAKE OTR/Bartolo - 08/24/2018 12:50 EDT Plan of Care, OT OT Tx Plan/Goals Established w Patient : Yes EDIN DRAKE OTR/Bartolo - 08/24/2018 12:50 EDT Computer Specialist Goals, OT Other LTG Grid Goal #1 [...] : continue POC, pt pending rehab placement EDIN DRAKE OTR/Bartolo - 08/24/2018 12:50 EDT Pain Assessment Pain [...]
--- OUTSIDE RECORDS SUMMARY | 2024-08-30 07:38 | XMS_ITS | Encounter Summary ---
Author Organization [employer] ([place], [place], [place], [place]) Address [address] [place] [address] Care Team Providers Care Automotive Paint Technician Name Role Phone Unavailable Primary Care Provider Unavailabl e Encounter Details Date Type Department Care Team (Late st Contact Info) Description 08/22/2018 Transcribed Document [facility] [place] [facility] [place] [address] ProviderMariela MD [facility] [place], [place] [phone] Social History Tobacco Use Types Packs/Day Years [...] Conversion Note - Mariela ProviderMD - 08/22/2018 9:14 AM CDT [facility] [place] PACU Summary Primary Physician: NIMO EPPS MD-ORT Finalized Date/Time: 08/22/18 12:13:23 Pt. Name: SOFIA GILL Eufemia Bal/Sex: 1940 Female Med Rec #: [id number] Physician: NIMO EPPS MD-ORT Financial #: [id number] Pt. Type: O Room/Bed: Admit/Disch: 08/22/18 04:51:00 - Institution: [facility] OR PACU Case Times Entry 1 In PACU I 08/22/18 11:07:00 Ready for PACU 08/22/18 12:00:00 Discharge Discharge from PACU 08/22/18 12:15:00 I Last Modified By: Layla Rapp RN 08/22/18 12:13:07 [facility] Main OR PACU Case Times Audit 08/22/18 12:13:07 Pricing Coordinator: [email or web address] Modifier: [email or web address] 1 <*> Ready for PACU Discharge 08/22/18 12:12:00 1 <*> Discharge from PACU I 08/22/18 12:12:00 08/22/18 12:12:55 Pricing Coordinator: [email or web address] Modifier: [email or web address] <+> 1 Ready for [...]
--- OUTSIDE RECORDS SUMMARY | 2024-08-30 07:38 | XMS_ITS | Encounter Summary ---
Author Organization [employer] ([place], [place], [place], [place]) Address [address] [place] [address] Care Team Providers Care Gang Pusher Name Role Phone Unavailable Primary Care Provider Unavailabl e Encounter Details Date Type Department Care Team (Late st Contact Info) Description 06/26/2019 Transcribed Document [facility] [place] [address] [place] [address] ProviderMariela MD [address] [place] [address] Social History Tobacco Use Types Packs/Day Years [...]
--- OUTSIDE RECORDS SUMMARY | 2024-08-30 07:38 | XMS_ITS | Encounter Summary ---
Author Organization [employer] ([place], [place], [place], [place]) Address [address] [place] [address] Care Team Providers Care Solar Systems Designer Name Role Phone Unavailable Primary Care Provider Unavailabl e Encounter Details Date Type Department Care Team (Late st Contact Info) Description 06/26/2019 Transcribed Document [facility] [place] [facility] [place] [address] ProviderMariela MD [address] [place] [address] Social History Tobacco Use Types [...] Conversion Note - Mariela ProviderMD - 06/26/2019 2:56 PM CDT Final Discharge Planning Entered On: 06/26/2019 15:01 EDT Performed On: 06/26/2019 14:56 EDT by DEBORAH CAMPOS RN-User Experience Team Lead Final Discharge Planning Discharge Arrangements : Patient [...] ANY DME AT DISCHARGE FROM [facility]ACH..DEBORAH BENAVIDEZ, RN-User Experience Team Lead - 06/26/2019 14:56 EDT Final Narrative Note Final Narrative Note : NURSE AWARE OF D/C PLAN AND WILL CLAL REPORT TO [phone]..D/C SUMMARY COMPLETED..DEBORAH BENAVIDEZ RN-User Experience Team Lead - 06/26/2019 14:56 EDT documented in this encounter Plan of Treatment Not on file documented as of this encounter Visit Diagnoses Not on filedocumented in this encounter
--- OUTSIDE RECORDS SUMMARY | 2024-08-30 07:38 | XMS_ITS | Encounter Summary ---
Author Organization [employer] ([place], [place], [place], [place]) Address [address] [place] [address] Care Team Providers Care Manager Med Surg Name Role Phone Unavailable Primary Care Provider Unavailabl e Encounter Details Date Type Department Care Team (Late st Contact Info) Description 08/22/2018 Transcribed Document [facility] [place] [facility] [place] [address] ProviderMariela MD [facility] [place] [address] Social History Tobacco Use Types [...] Mariela ProviderMD - 08/22/2018 9:14 AM CDT [facility] Main OR PreOp Summary Primary Physician: NIMO EPPS MD-ORT Finalized Date/Time: 08/24/18 10:27:11 Pt. Name: SOFIA GILL Eufemia Bal/Sex: 1940 Female Med Rec #: [id number] Physician: NIMO EPPS MD-ORT Financial #: [id number] Pt. Type: I Room/Bed: 504/1 Admit/Disch: 08/22/18 07:12:00 - Institution: [facility] [place] PreOp Case Times Entry 1 In Preop 08/22/18 06:15:00 Ready for Holding n/a Room Patient Ready for 08/22/18 08:05:00 Surgery Patient Out of Preop 08/22/18 08:37:00 Patient Out of n/a Holding Room Last Modified By: THIERRY GOODRICH RN 08/24/18 10:27:08 [facility] PreOp Case Times Audit 08/24/18 10:27:08 Hot Stick Man: HORACIO Modifier: HORACIO <+> 1 Patient Out of Preop Finalized By: THIERRY GOODRICH, RN Document Signatures Signed By: THIERRY GOODRICH RN 08/24/18 10:27 documented in this encounter Plan of Treatment Not on file documented as of this encounter Visit Diagnoses Not on filedocumented in this encounter
--- OUTSIDE RECORDS SUMMARY | 2024-08-30 07:38 | XMS_ITS | Encounter Summary ---
Author Organization [employer] ([place], [place], [place], [place]) Address [address] [place] [address] Care Team Providers Care Electric Furnace Operator Name Role Phone Unavailable Primary Care Provider Unavailabl e Encounter Details Date Type Department Care Team (Late st Contact Info) Description 07/13/2019 Transcribed Document [facility] [place] [facility] [place] [address] ProviderMariela MD [address] [place] [address] Social History Tobacco Use Types Packs/Day [...] Conversion Note - Mariela ProviderMD - 07/13/2019 11:02 AM CDT Care Management Assessment/Plan Entered On: 07/13/2019 11:04 EDT Performed On: 07/13/2019 11:02 EDT by YOANNA ARAUJO RN Care Management Note Care Management Note : Yoanna Araujo 07/13/2019 1100 faxed out referral for placement for patient to [facility] nursing [facility] rehab, [facility] and triology facilities. Awaiting call backs. Care Management Note Report : СВЕТЛАНА WANG - 07/12/19 12:19:17 07/12/2019 Fax received from [facility] with approval for LTAC services with a request for updated discharge plans and clinical info to support needs if not discharged. Auth#[id number]. Clinical review or discharge summary to be faxed by 07/17/2019. YOANNA ARAUJO RN - 07/12/19 08:39:48 Yoanna Araujo 07/12/2019 0830 - faxed clinical review the [facility] at [phone] to request approval for extended ltac services. Auth#[id number], awaiting approval. YOANNA ARAUJO RN - 06/29/19 [...] health and she has [facility] to [facility] in the past. She has the following equipment at home: wheel chair, walker, cane and shower chair. Her discharge plan is to go to rehab prior to returning home. PCP: Flavia MARQUEZ [address] [place] [address] Gallery Or Museum Curator: Dr. Shemar Barger [address] [id number] Clemente Del Rio MD - Rheumatology - [address] [place] [address] Preferences: Home Health: [facility]: no preferences DME: [facility] - [address], [place] [address] [facility]: no preferences Will continue to monitor patient for anticipated discharge needs YOANNA ARAUJO RN - 06/29/19 08:30:20 Yoanna Araujo 06/29/2019 0830 received fax from [facility] with approval for extended ltac coverage with next clinical review due on 07/12/2019. Auth#[id number]. Will continue to follow for anticipated discharge needs. YOANNA ARAUJO RN - 06/28/19 08:35:06 Yoanna Araujo 06/28/2019 0830 Faxed clinical review to [facility] at to request approval for extended Ltac services. Auth#[id number]. Pending Approval. Documentation Status Complete : Yes YOANNA ARAUJO RN - 07/13/2019 11:02 EDT Electronically signed by Maureen Cornejo Conversion Hospitalist Program Director Cerner at 06/16/2022 8:27 PM CDT documented in this encounter Plan of Treatment Not on file documented as of this encounter Visit Diagnoses Not on filedocumented in this encounter
--- OUTSIDE RECORDS SUMMARY | 2024-08-30 07:38 | XMS_ITS | Encounter Summary ---
Author Organization [employer] ([place], [place], [place], [place]) Address [address] [place] [address] Care Team Providers Care Track Laminating Machine Tender Name Role Phone Unavailable Primary Care Provider Unavailabl e Encounter Details Date Type Department Care Team (Late st Contact Info) Description 06/18/2019 Transcribed Document [facility] [place] [facility] [address] ProviderMariela MD [address] [place] [address] Social History Tobacco Use Types [...] Conversion Note - Mariela ProviderMD - 06/18/2019 4:50 PM CDT Patient: [...] Daily fluticasone 50 mcg/inh nasal spray, 2 [place], Nostrils Both, BID, PRN gabapentin, 300 mg= [...] BID fluticasone 50 mcg/inh nasal spray, 2 [place]ix[place], Nostrils Both, BID, PRN Lasix 40 mg [...] sulfa drugs (Itching) Electronically signed by Chantal [facility] Conversion Inspector Fabric Cerner at 06/16/2022 8:06 PM CDT documented in this encounter Plan of Treatment Not on file documented as of this encounter Visit Diagnoses Not on filedocumented in this encounter
--- OUTSIDE RECORDS SUMMARY | 2024-08-30 07:38 | XMS_ITS | Encounter Summary ---
Author Organization [facility] ([place], [place], [place], [place]) Address [address] [place] [address] Care Team Providers Care Track Vehicle Repairer Name Role Phone Unavailable Primary Care Provider Unavailabl e Encounter Details Date Type Department Care Team (Late st Contact Info) Description 08/20/[address] [facility] Family Medicine [facility] [address] ProviderMariela [place] [address] Social History Tobacco Use Types [...] Conversion Note - Mariela ProviderMD - 08/20/2020 4:09 PM CDT Tita Main OR IntraOp Summary Primary Physician: NIMO EPPS MD-ORT Finalized Date/Time: 08/21/20 10:16:19 Pt. Name: SOFIA BARLOW S /Sex: 1940 Female Med Rec #: [id number] Physician: NIMO EPPS MD-ORT Financial #: [id number] Pt. Type: I Room/Bed: [facility]/ Admit/Disch: 08/20/20 04:48:00 - Institution: [facility] [place]Op Case Attendance Entry 1 Entry 2 Entry 3 Case Attendee NIMO EPPS Moore, Kelly E, RN Zamora, Radha, Scrub MD-ORT Tech Role Performed Surgeon/Proceduralist, Model Maker Apprentice, First Scrub, First First Time In 08/20/20 [...] OMAR JIMENEZ, ESTEBAN Role Performed Vendor Vendor Asset Card Clerk, First Time In 08/20/20 15:29:00 08/20/20 15:29:00 08/20/20 15:29:00 Time Out 08/20/20 18:52:00 08/20/20 20:25:00 08/20/20 20:25:00 Procedure Knee Total Joint Knee Total Joint Knee Total Joint Revision, Patella Revision, Patella Revision, Patella Tendon Repair Tendon Repair Tendon Repair Other Attendee KRISTEN BISHOP Superficial Wound Closed By: Last Modified By: LINDA SAVAGE, LINDA FRY, RN LINDA SAVAGE, EDDIE 08/20/20 20:29:47 08/20/20 20:29:47 08/20/20 20:29:47 Entry 7 Entry 8 Entry 9 Case Attendee YUNIOR DUBOSE EVAN, PA-C HARRIMAN, KELLY, CRNA Role Performed Scrub, Second Physician respiratory therapist assistant DEVELOPER PROGRAMMER/Nurse Netbackup Administrator Time In 08/20/20 15:29:00 08/20/20 15:29:00 08/20/20 [...] APRN, MARX, CONNIE, EDDIE OTHER, ATTENDEE #5 DEVELOPER PROGRAMMER-ANS Role Performed DEVELOPER PROGRAMMER/Nurse Netbackup Administrator Model Maker Apprentice, First Vendor Time In 08/20/20 17:39:00 08/20/20 [...] SJE IntraOp Case Attendance Audit 08/20/20 20:29:47 Product Assurance Engineer: LILLIANO Modifier: MARXCO 1 <+> Time Out 1 [...] Joint Revision, Patella Tendon Repair 08/20/20 19:27:35 Product Assurance Engineer: SUNDAYLLER Modifier: MARXCO 1 <*> Procedure Knee Total [...] Joint Revision, Patella Tendon Repair 08/20/20 18:09:39 Product Assurance Engineer: ELÍAS Modifier: DAVIDER 2 <+> Time Out 2 <*> Procedure [...] Procedure <+> 13 Other Attendee 08/20/20 17:40:02 Product Assurance Engineer: ELÍAS Modifier: SUNDAYLLER 9 <+> Time Out 9 <*> Procedure Knee Total Joint Revision, Patella Tendon Repair <+> 10 Case Attendee <+> 10 Role Performed <+> 10 Time In <+> 10 Procedure <+> 10 Other Attendee 08/20/20 17:16:38 Product Assurance Engineer: SUNDAYLLER Modifier: KEMILLER 1 <*> Procedure Knee [...] Procedure Knee Total Joint Revision 08/20/20 17:16:26 Product Assurance Engineer: RHETTMILLER Modifier: KEMILLER 1 <*> Procedure Patella Open [...] Fixation, Knee Total Joint Revision 08/20/20 16:36:51 Product Assurance Engineer: RHETTMILLER Modifier: KEMILLER <+> 1 Procedure <+> 3 Procedure 5 <*> Role Performed Breading Machine Tender, Ancillary 5 <*> Procedure Patella Open Reduction Internal Fixation, Knee Total Joint Revision 5 <*> Other Attendee MATEO ANNDAGOBERTO 9 <*> Case Attendee SERENITY RODRÍGUEZ, WET END TESTER, DEVELOPER PROGRAMMER-ANS 9 <*> Procedure Patella Open Reduction Internal Fixation 08/20/20 16:30:48 Product Assurance Engineer: SUNDAYLLER Modifier: KEMILLER 2 <*> Case Attendee OZZIE ALTAMIRANO, RN 2 <*> Procedure Patella Open Reduction Internal Fixation, Knee Total Joint Revision 08/20/20 16:13:35 Product Assurance Engineer: DEE Modifier: KEMILLER <+> 1 Time In 2 <+> Time [...] Patella Open Reduction Internal Fixation 08/20/20 14:42:56 Product Assurance Engineer: DEE Modifier: DEE 1 <*> Case Attendee NIMO EPPS, -ORT 1 <*> Role Performed Surgeon/Proceduralist, First 2 <*> Case Attendee OZZIE ALTAMIRANO, RN 2 <*> Role Performed Model Maker Apprentice, First 2 <*> Procedure Patella Open Reduction Internal Fixation, Knee Total Joint Revision 3 <*> Case Attendee Radha Zamora, Passenger Barge Master 3 <*> Role Performed Scrub, First 4 <*> Case Attendee OTHER, ATTENDEE #1 4 <*> Role Performed Vendor 4 <*> Procedure Patella Open Reduction Internal Fixation, Knee Total Joint Revision 4 <*> Other Attendee KRISTEN CLEARY 5 <*> Case Attendee OTHER, ATTENDEE #2 5 <*> Role Performed Breading Machine Tender, Ancillary 5 <*> Procedure Patella Open Reduction Internal Fixation, Knee Total Joint Revision 5 <*> Other Attendee MATEO MUNSON 6 <*> Case Attendee OMAR JIMENEZ CSA 6 <*> Role Performed Asset Card Clerk, First 6 <*> Procedure Patella Open Reduction Internal Fixation, Knee Total Joint Revision Entry 7 was deleted. Higher numbered entries shifted one position to fill the gap. <-> 7 Case Attendee JOSE AQUINO CRNA <-> 7 Role Performed DEVELOPER PROGRAMMER/Nurse Netbackup Administrator <-> 7 Procedure Patella Open Reduction Internal Fixation, Knee Total Joint Revision 8 <*> Case Attendee YUNIOR DUBOSE 8 <*> Role Performed Scrub, Second 8 <*> Procedure Patella Open Reduction Internal Fixation, Knee Total Joint Revision 08/20/20 14:41:02 Product Assurance Engineer: DEE Modifier: DEE <+> 8 Case Attendee <+> 8 Role Performed <+> 8 Procedure <+> 9 Case Attendee <+> 9 Role Performed <+> 9 Procedure 08/20/20 14:23:34 Product Assurance Engineer: DEE Modifier: LEINSU <+> 7 Case Attendee <+> 7 Role Performed <+> 7 Procedure 08/20/20 14:03:40 Product Assurance Engineer: JEFFERYNSU Modifier: LEINSU <+> 6 Case Attendee [...] SJE IntraOp Case Times Audit 08/20/20 20:29:45 Product Assurance Engineer: RHETTMILLER Modifier: MARXCO <+> 1 Out Room [...] 16:49:26 SJE IntraOp Cautery Audit 08/20/20 16:49:26 Product Assurance Engineer: RHETTMILLER Modifier: KEMILLER 1 <*> Grounding Pad Site Left Lower Abdomen 1 <*> Grounding Pad Applied By Radha Zamora Passenger Barge Master 08/20/20 16:18:19 Product Assurance Engineer: MICHAELU Modifier: KEMILLER 1 <*> Grounding Pad Applied By OZZIE ALTAMIRANO RN SJE IntraOp Communication Entry 1 Entry 2 Communication To Family/Significant other Family/Significant other Comment START UPDATE Communication By Pamela Macario RN Pamela Macario, RN Date and Time 08/20/20 16:08:00 08/20/20 17:37:00 Last Modified By: Pamela Macario RN Moore, Kelly E, EDDIE 08/20/20 16:50:37 08/20/20 17:48:49 SJE IntraOp Communication Audit 08/20/20 17:48:49 Product Assurance Engineer: RHETTMILLER Modifier: KEMILLER <+> 2 Communication By <+> 2 Date and Time <+> 2 Communication To <+> 2 Comment 08/20/20 16:50:37 Product Assurance Engineer: KEMILLER Modifier: KEMILLER 1 <*> Communication By Radha Zamora, Passenger Barge Master 1 <+> Date and Time 1 <+> Comment 08/20/20 16:13:59 Product Assurance Engineer: DEE Modifier: KEMILLER 1 <*> Communication By [...] P (Scrub) Tech Count Performed By Pamela Macario RN MARX, CONNIE, RN (RN) Last Modified By: Pamela Macario RN MARX, CONNIE, RN 08/20/20 17:16:40 08/20/20 19:08:54 SJE IntraOp Counts Verification Audit 08/20/20 19:08:54 Product Assurance Engineer: ELÍAS Modifier: MARXCO <+> 2 Procedure <+> 2 Count Type <+> 2 Counts Verification Sequence <+> 2 Count Performed By (Scrub) <+> 2 Count Performed By (RN) 08/20/20 17:16:40 Product Assurance Engineer: SUNDAYLLER Modifier: KEMILLER 1 <*> Procedure Knee Total Joint Revision 08/20/20 17:16:27 Product Assurance Engineer: RHETTMILLER Modifier: KEMILLER 1 <*> Procedure Patella Open Reduction Internal Fixation, Knee Total Joint Revision 08/20/20 16:46:11 Product Assurance Engineer: KEMILLER Modifier: KEMILLER 1 <*> Procedure Patella Open Reduction Internal Fixation, Knee Total Joint Revision 1 <*> Count Type Sponge, Sharps 1 <*> Count Results Intentional retention 1 <*> Count Performed By (RN) Radha Zamora Scrub Tech 08/20/20 16:13:50 Product Assurance Engineer: DEE Modifier: KEMILLER 1 <*> Procedure Patella [...] SJE IntraOp Counts Final Audit 08/20/20 19:56:39 Product Assurance Engineer: SUNDAYLLJOSETTE Modifier: MARXCO 1 <*> Procedure Knee Total Joint Revision, Patella Tendon Repair 1 <+> Count Performed By (Scrub) 1 <+> Count Performed By (RN) 08/20/20 17:16:41 Product Assurance Engineer: ELÍAS Modifier: KEMILLER 1 <*> Procedure Knee Total Joint Revision 08/20/20 17:16:28 Product Assurance Engineer: DEE Modifier: KEMILLER 1 <*> Procedure Patella Open Reduction Internal Fixation, Knee Total Joint Revision SJE IntraOp Cultures and Spec Summary Entry 1 Cultrures and Specimens Specimen Ordered: Yes Test(s) Routine/Path-Lab, Requested/Final Culture(s)/Microbiology, Disposition Frozen Section(s)/Path-Lab Last Modified By: Pamela Macario RN 08/20/20 16:46:57 SJE IntraOp Cultures and Spec Summary Audit 08/20/20 16:46:57 Product Assurance Engineer: DEE Modifier: SUNDAYLLER 1 <*> Test(s) Requested/Final Disposition Routine/Path-Lab, Culture(s)/Microbiology, Other: Segment text SJE IntraOp Departure from OR Entry 1 Integumentary Assessment Integumentary WDL Assessment WDL Transfer/Handoff Transfer to PACU Phase I Handoff Method Bedside/Face to face Post-op Transport Bed (including Via specialty) Patient Transport PAMELA HUNTER CRNA, Accompanied by Pamela Macario, RN Last Modified By: Pamela Macario RN [...] COVADERM DRAIN SITE Last Modified By: LINDA SAVAEG RN 08/20/20 20:28:07 SJE IntraOp Dressing and Packing Audit 08/20/20 20:28:07 Product Assurance Engineer: ELÍAS Modifier: JUSTINEXCO 1 <*> Supplemental Applications Cold pack, Limb immobilizer SJE IntraOp Fire Risk Assessment Entry 1 Fire Info Surgical Site or 0- No Incision Above the Xyphoid Open O2 Source 0- No (Mask or Cannula) Available Ignition 1- Yes (ESU, Laser, Light Source) Fire Risk 1 Assessment Score Fire Score Fire Risk Yes Assessment Complete Fire Risk Pamela Macario, fans clerk Verified By Fire Risk 08/20/20 15:29:00 Assessment Verified Date/Time Fire Risk High Risk Protocol Yes Implemented Standard Fire Yes Safety Precautions Followed Last Modified By: Pamela Macario RN 08/20/20 16:38:35 SJE IntraOp Fire Risk Assessment Audit 08/20/20 16:38:35 Product Assurance Engineer: ELÍAS Modifier: ELÍAS 1 <*> Fire Risk Assessment Verified By Radha Zamora Scrub Tech 08/20/20 16:14:04 Product Assurance Engineer: ELÍAS Modifier: ELÍAS 1 <*> Fire Risk Assessment Verified By OZZIE ALTAMIRANO, EDDIE Tita IntraOp General Case Stull Installer 1 Case Information OR OR 05 [facility] Case Level 1 Room Verified Yes Wound Class I - Clean Specialty Orthopedic Anesthesia Type General ASA Class 3 Diagnosis Preop Diagnosis RIGHT KNEE PAIN S/P TOTAL JOINT Postop Same As Preop No Postop Diagnosis SEE MD POST OP NOTE Last Modified By: Pamela Macario RN 08/20/20 16:38:56 SJE IntraOp General Case Data Audit 08/20/20 16:38:56 Product Assurance Engineer: DEE Modifier: KEMILLER <+> 1 Postop Same As Preop <+> 1 Preop Diagnosis <+> 1 Postop Diagnosis SJE IntraOp Implant Log Entry 1 Entry 2 Entry 3 Type Implant (Synthetic) Implant (Synthetic) Implant (Synthetic) Implant Log Implant Type Mesh Bone Cement Cochlear Tissue Implant Type Implant MESH HANG FLAT SHT CEMENT BONE COBALT HV IMP LEGION HK 11 Identification [id number] Description Implant Quantity 1 2 1 Implant Site RIGHT PATELLAR TENDON right knee right knee Implant Identification Model Number Implant Identification Serial Number Implant [id number] Identification Lot Number Implant Cr Bard:Jamar Franks Surg:[employer] Ovalle & Nephew:Ortho Identification Med:[place] Supervisor Fruit Grading Name: Implant [id number] Identification Catalog Number Implant Size Implant Has an Yes Yes Expiration Date Implant Expiration 07/26/24 11/22/20 05/27/29 Date Wasted Radioactive Material Time Implanted Tissue Implant Continue for Tissue Implant Documentation Tissue Identification Number Graft Prep Per Supervisor Fruit Grading Instructions: Tissue Preparation Method: Reconstitution Solution: Reconstitution Solution Lot Number Reconstitution Solution Expiration Date: Thawing Solution Thawing Solution Lot Number Thawing Solution Expiration Date Preparation Materials, Other Preparation Materials, Other Lot Number Preparation Materials, Other Expiration Date Tissue Prepared/Processed By Supervisor Fruit Grading Paperwork Completed Implant Type Comment Last Modified By: Pamela Macario RN MARX, CONNIE, RN MARX, CONNIE, RN 08/20/20 17:15:37 08/20/20 19:07:44 08/20/20 19:07:44 Entry 4 Entry 5 Entry 6 Type Implant (Synthetic) Implant (Synthetic) Implant (Synthetic) Implant Log Implant Type Hardware Hardware Hardware Tissue Implant Type Implant LGN HK GD MOTION 11MM STEM PRESSFIT LEGION tibial wedge Identification [id number] Description Implant Quantity 1 1 1 Implant Site right knee right knee right knee Implant [id number] Identification Model Number Implant Identification Serial Number Implant [id number] Identification Lot Number Implant Ovalle & Nephew:Ortho Ovalle & Nephew:Ortho ovalle&nephew Identification Supervisor Fruit Grading Name: Implant [id number] Identification Catalog Number Implant Size 5mm,size 3-4 Implant Has an Yes Yes Yes Expiration Date Implant Expiration 03/12/28 01/31/28 02/06/28 Date Wasted Radioactive Material Time Implanted Tissue Implant Continue for Tissue Implant Documentation Tissue Identification Number Graft Prep Per Supervisor Fruit Grading Instructions: Tissue Preparation Method: Reconstitution Solution: Reconstitution Solution Lot Number Reconstitution Solution Expiration Date: Thawing Solution Thawing Solution Lot Number Thawing Solution Expiration Date Preparation Materials, Other Preparation Materials, Other Lot Number Preparation Materials, Other Expiration Date Tissue Prepared/Processed By Supervisor Fruit Grading Paperwork Completed Implant Type Comment Last Modified By: LINDA SAVAGE RN MARX, CONNIE, RN MARX, CONNIE, RN 08/20/20 19:07:44 08/20/20 19:07:44 08/20/20 19:07:44 Entry 7 Entry 8 Entry 9 Type Implant (Synthetic) Implant (Synthetic) Implant (Synthetic) Implant Log Implant Type Hardware Grafts, non-biological Hardware Tissue Implant Type Implant BASEPLT TIB LEGN HK F tibial wedge PRE PLANNING ADVISOR OFFSET LEGION Identification [id number] Description Implant Quantity 1 1 1 Implant Site right knee right knee right knee Implant [id number] Identification Model Number Implant Identification Serial Number Implant [id number] Identification Lot Number Implant Ovalle & Nephew:Ortho Ovalle & Nephew:Ortho Identification Supervisor Fruit Grading Name: Implant [id number] Identification Catalog Number Implant Size 5mm, 3-4 Implant Has an Yes Yes Yes Expiration Date Implant Expiration 09/08/27 03/31/30 Date Wasted Radioactive Material Time Implanted Tissue Implant Continue for Tissue Implant Documentation Tissue Identification Number Graft Prep Per Supervisor Fruit Grading Instructions: Tissue Preparation Method: Reconstitution Solution: Reconstitution Solution Lot Number Reconstitution Solution Expiration Date: Thawing Solution Thawing Solution Lot Number Thawing Solution Expiration Date Preparation Materials, Other Preparation Materials, Other Lot Number Preparation Materials, Other Expiration Date Tissue Prepared/Processed By Supervisor Fruit Grading Paperwork Completed Implant Type Comment Last Modified By: LINDA SAVAGE, LINDA FRY, LINDA FRY RN 08/20/20 19:07:44 08/20/20 19:07:44 08/20/20 19:07:44 Entry 10 Entry 11 Entry 12 Type Implant (Synthetic) Implant (Synthetic) Implant (Synthetic) Implant Log Implant Type Hardware Hardware Hardware Tissue Implant Type Implant FEMORAL WEDGE DIS 5MM FEMORAL WEDGE DIS 5MM STEM PRESSFIT LEGION Identification [id number] Description Implant Quantity 1 1 1 Implant Site right knee right knee right knee Implant Identification Model Number Implant Identification Serial Number Implant [id number] Identification Lot Number Implant Ovalle & Nephew:Ortho Ovalle & Nephew:Ortho Ovalle & Nephew:Ortho Identification Supervisor Fruit Grading Name: Implant [id number] Identification Catalog Number Implant Size Implant Has an Yes Yes Yes Expiration Date Implant Expiration 10/04/27 04/29/21 05/24/26 Date Wasted Radioactive Material Time Implanted Tissue Implant Continue for Tissue Implant Documentation Tissue Identification Number Graft Prep Per Supervisor Fruit Grading Instructions: Tissue Preparation Method: Reconstitution Solution: Reconstitution Solution Lot Number Reconstitution Solution Expiration Date: Thawing Solution Thawing Solution Lot Number Thawing Solution Expiration Date Preparation Materials, Other Preparation Materials, Other Lot Number Preparation Materials, Other Expiration Date Tissue Prepared/Processed By Supervisor Fruit Grading Paperwork Completed Implant Type Comment Last Modified By: LINDA SAVAGE, LINDA FRY RN MARX, CONNIE, RN 08/20/20 19:07:44 08/20/20 19:07:44 08/20/20 19:07:44 Entry 13 Entry 14 Type Implant (Synthetic) Implant (Synthetic) Implant Log Implant Type Hardware Hardware Tissue Implant Type Implant PRE PLANNING ADVISOR OFFSET LEGION ASSEMBLY FEM BARB LGN Identification [id number] Description Implant Quantity 1 1 Implant Site right knee right knee Implant Identification Model Number Implant Identification Serial Number Implant [id number] Identification Lot Number Implant Ovalle & Nephew:Ortho Ovalle & Nephew:Ortho Identification Supervisor Fruit Grading Name: Implant [id number] Identification Catalog Number Implant Size Implant Has an Yes Yes Expiration Date Implant Expiration 11/17/29 01/23/27 Date Wasted Radioactive Material Time Implanted Tissue Implant Continue for Tissue Implant Documentation Tissue Identification Number Graft Prep Per Supervisor Fruit Grading Instructions: Tissue Preparation Method: Reconstitution Solution: Reconstitution Solution Lot Number Reconstitution Solution Expiration Date: Thawing Solution Thawing Solution Lot Number Thawing Solution Expiration Date Preparation Materials, Other Preparation Materials, Other Lot Number Preparation Materials, Other Expiration Date Tissue Prepared/Processed By Supervisor Fruit Grading Paperwork Completed Implant Type Comment Last Modified By: LINDA SAVAGE, LINDA FRY RN 08/20/20 19:07:44 08/20/20 19:07:45 [facility] Implant Log Audit 08/20/20 19:07:45 Product Assurance Engineer: PATRICIA Modifier: MARXCO <+> 14 Implant Identification Lot Number <+> 14 Implant Identification Supervisor Fruit Grading Name: <+> 14 Implant Expiration Date <+> 14 Implant Site <+> 14 Implant Identification Catalog Number <+> 14 Implant Has an Expiration Date 08/20/20 19:07:44 Product Assurance Engineer: ELÍAS Modifier: MARXCO <+> 2 Implant Identification Description <+> 2 Implant Identification Lot Number <+> 2 Implant Identification Supervisor Fruit Grading Name: <+> 2 Implant Expiration Date <+> 2 Implant Site <+> 2 Implant Quantity <+> 2 Implant Identification Catalog Number <+> 2 Implant Type <+> 2 Type <+> 3 Implant Identification Description <+> 3 Implant Identification Lot Number <+> 3 Implant Identification Supervisor Fruit Grading Name: <+> 3 Implant Expiration Date <+> 3 Implant Site <+> 3 Implant Quantity <+> 3 Implant Identification Catalog Number <+> 3 Implant Type <+> 3 Implant Has an Expiration Date <+> 3 Type <+> 4 Implant Identification Description <+> 4 Implant Identification Lot Number <+> 4 Implant Identification Supervisor Fruit Grading Name: <+> 4 Implant Expiration Date <+> 4 Implant Site <+> 4 Implant Quantity <+> 4 Implant Identification Catalog Number <+> 4 Implant Type <+> 4 Implant Has an Expiration Date <+> 4 Type <+> 5 Implant Identification Description <+> 5 Implant Identification Lot Number <+> 5 Implant Identification Supervisor Fruit Grading Name: <+> 5 Implant Expiration Date <+> 5 Implant Site <+> 5 Implant Quantity <+> 5 Implant Identification Catalog Number <+> 5 Implant Type <+> 5 Implant Has an Expiration Date <+> 5 Type <+> 6 Implant Identification Description <+> 6 Implant Identification Lot Number <+> 6 Implant Identification Supervisor Fruit Grading Name: <+> 6 Implant Size <+> 6 Implant Expiration Date <+> 6 Implant Site <+> 6 Implant Quantity <+> 6 Implant Type <+> 6 Implant Identification Model Number <+> 6 Implant Has an Expiration Date <+> 6 Type <+> 7 Implant Identification Description <+> 7 Implant Identification Lot Number <+> 7 Implant Identification Supervisor Fruit Grading Name: <+> 7 Implant Site <+> 7 [...] Identification Lot Number <+> 9 Implant Identification Supervisor Fruit Grading Name: <+> 9 Implant Expiration Date <+> 9 Implant Site <+> 9 Implant Quantity <+> 9 Implant Identification Catalog Number <+> 9 Implant Type <+> 9 Implant Has an Expiration Date <+> 9 Type <+> 10 Implant Identification Description <+> 10 Implant Identification Lot Number <+> 10 Implant Identification Supervisor Fruit Grading Name: <+> 10 Implant Expiration Date <+> 10 Implant Site <+> 10 Implant Quantity <+> 10 Implant Identification Catalog Number <+> 10 Implant Type <+> 10 Implant Has an Expiration Date <+> 10 Type <+> 11 Implant Identification Description <+> 11 Implant Identification Lot Number <+> 11 Implant Identification Supervisor Fruit Grading Name: <+> 11 Implant Expiration Date <+> 11 Implant Site <+> 11 Implant Quantity <+> 11 Implant Identification Catalog Number <+> 11 Implant Type <+> 11 Implant Has an Expiration Date <+> 11 Type <+> 12 Implant Identification Description <+> 12 Implant Identification Lot Number <+> 12 Implant Identification Supervisor Fruit Grading Name: <+> 12 Implant Expiration Date <+> 12 Implant Site <+> 12 Implant Quantity <+> 12 Implant Identification Catalog Number <+> 12 Implant Type <+> 12 Implant Has an Expiration Date <+> 12 Type <+> 13 Implant Identification Description <+> 13 Implant Identification Lot Number <+> 13 Implant Identification Supervisor Fruit Grading Name: <+> 13 Implant Expiration Date <+> [...] Sequential compression device, knee high Antiembolic Device [id number] ID Number Scopes Photo/Video Documentation Photo No Video No Last Modified By: OZZIE ALTAMIRANO RN 08/20/20 14:32:00 SJE IntraOp Medication Admin Entry 1 Entry 2 Entry 3 Medication/Irrigant TRANEXAMIC ACID vancomycin 1Gm vial - hydrogen peroxide 3% - 1000MG/10 ML [id number] Combo Med List Time Administered Route of ADDED TO TXA TOPICAL ON OPERATIVE Administration SITE Dose Dose 1000 1 237 Unit of Measure mg gram ml Volume 10ML Administered By NIMO EPPS CHRISTENSEN, MICH SUERO CHRISTIAN, MD-ORT MD-ORT MD-ORT Procedure Irrigation Irrigant Volume In Irrigant [...] SJE IntraOp Patient Positioning Audit 08/20/20 17:16:40 Product Assurance Engineer: ELÍAS Landa: ELÍAS 1 <*> Procedure Knee Total Joint Revision 08/20/20 17:16:27 Product Assurance Engineer: ELÍAS Modifier: SUNDAYLLER 1 <*> Procedure Knee Total Joint Revision 08/20/20 16:18:28 Product Assurance Engineer: DEE Modifier: ELÍAS 1 <*> Body Position Supine 1 <*> [...] 1 <*> Positioned By OMAR JIMENEZ CSA SJTita IntraOp Sign In Entry 1 Patient, Site, Yes Procedure Identified Surgical Consent Yes Confirmed Relevant Surgical Yes Documents Available Surgical Site Yes Marked by person performing procedure Anesthesia Machine Yes Check Completed Medication Checks Yes Completed Allergies Yes Airway Electronically signed by [facility] Conversion Heel Cutter Cerner at 06/16/2022 8:11 PM CDT documented in this encounter Plan of Treatment Not on file documented as of this encounter Visit Diagnoses Not on filedocumented in this encounter
--- OUTSIDE RECORDS SUMMARY | 2024-08-30 07:38 | XMS_ITS | Encounter Summary ---
Author Organization [employer] ([place], [place], [place], [place]) Address [address] [place] [address] Care Team Providers Care Car Head Liner Installer Name Role Phone Unavailable Primary Care Provider Unavailabl e Encounter Details Date Type Department Care Team (Late st Contact Info) Description 08/22/2018 Transcribed Document [facility] [place] Family Medicine [facility] [place] [address] ProviderMariela MD [address] [place] [address] Social History Tobacco Use Types Packs/Day [...] Conversion Note - Mariela ProviderMD - 08/22/2018 9:20 AM CDT Nutrition [...] Berg RD, LD - 08/23/2018 11:48 EDT Electronically signed by Maureen Cornejo Conversion Water Quality Control Engineer Cerner at 06/16/2022 8:14 PM CDT documented in this encounter Plan of Treatment Not on file documented as of this encounter Visit Diagnoses Not on filedocumented in this encounter
--- OUTSIDE RECORDS SUMMARY | 2024-08-30 07:38 | XMS_ITS | Encounter Summary ---
Author Organization [employer] ([place], [place], [place], [place]) Address [address] [place] [address] Care Team Providers Care Preschool Teacher Aide Name Role Phone Unavailable Primary Care Provider Unavailabl e Encounter Details Date Type Department Care Team (Late st Contact Info) Description 06/18/2019 Transcribed Document [facility] [place] [facility] [place] [address] ProviderMariela MD [address] [place] [id number] Social History Tobacco Use Types Packs/Day Years [...] exist for treatment of abnormal results Ophelia Ling RN - 06/18/2019 6:44 EDT documented in this encounter Plan of Treatment Not on file documented as of this encounter Visit Diagnoses Not on filedocumented in this encounter
--- OUTSIDE RECORDS SUMMARY | 2024-08-30 07:38 | XMS_ITS | Encounter Summary ---
Author Organization [employer] ([place], [place], [place], [place]) Address [address] [place] [address] Care Team Providers Care Exhaust Emissions Inspector Name Role Phone Unavailable Primary Care Provider Unavailabl e Encounter Details Date Type Department Care Team (Late st Contact Info) Description 07/13/2019 Transcribed Document [facility] Radiology [address] [place] [address] Shawanda Barahona MD [address] [id number] Social History Tobacco Use Types Packs/Day Years [...] 91 (JULY 11:00) Resp Rate 18 (JULY 12:00) 15 (JULY 11 23:00) 18 (JULY 12:00) SBP H 148 (JULY 12 07:00) 108 (JULY 11 19:00) H 148 (JULY 12:00) DBP L 58 [...] (JULY 06) L 2.9 (JULY 05) Micro: [facility]: 06/15 [facility] Blood cultures positive for group B [...]
--- OUTSIDE RECORDS SUMMARY | 2024-08-30 07:38 | XMS_ITS | Encounter Summary ---
Author Organization [employer] ([place], [place], [place], [place]) Address [address] [place] [address] Care Team Providers Care Home Care Physical Therapist Name Role Phone Unavailable Primary Care Provider Unavailabl e Encounter Details Date Type Department Care Team (Late st Contact Info) Description 08/20/2020 Transcribed Document [facility] Family Medicine [facility] [place] [address] ProviderMariela MD [facility] [place] [address] Social History Tobacco Use Types [...] Mariela ProviderMD - 08/20/2020 4:09 PM CDT SAMMIE Main OR PreOp Summary Primary Physician: NIMO EPPS MD-ORT Finalized Date/Time: 08/21/20 09:12:03 Pt. Name: SOFIA GILL S /Sex: 1940 Female Med Rec #: [id number] Physician: NIMO EPPS MD-ORT Financial #: [id number] Pt. Type: I Room/Bed: 428/1 Admit/Disch: 08/20/20 04:48:00 - Institution: [facility] PreOp Case Times Entry 1 In Preop 08/20/20 11:20:00 Ready for Holding n/a Room Patient Ready for 08/20/20 12:30:00 Surgery Patient Out of Preop 08/21/20 15:27:00 Patient Out of n/a Holding Room Last Modified By: KASSI GAY RN 08/21/20 09:12:01 SJE PreOp Case Times Audit 08/21/20 09:12:01 Death Claim Examiner: [email or web address] Modifier: [email or web address] <+> 1 Patient Out of Preop Finalized By: KASSI GAY, RN Document Signatures Signed By: KASSI GAY RN 08/21/20 09:12 Electronically signed by Maureen Cornejo Conversion Healthcare Insurance Sales Agent Cerner at 06/16/2022 8:10 PM CDT documented in this encounter Plan of Treatment Not on file documented as of this encounter Visit Diagnoses Not on filedocumented in this encounter
--- OUTSIDE RECORDS SUMMARY | 2024-08-30 07:38 | XMS_ITS | Encounter Summary ---
Author Organization [employer] ([place], [place], [place], [place]) Address [address] [place] [address] Care Team Providers Care Acoustic Engineer Name Role Phone Unavailable Primary Care Provider Unavailabl e Encounter Details Date Type Department Care Team (Late st Contact Info) Description 07/11/2019 Transcribed Document [facility] [place] [facility] [place] [address] ProviderMariela MD [address] [place] [address] Social History Tobacco Use Types Packs/Day Years [...] Historical ProviderMD - 07/11/2019 2:00 AM CDT Network Operations Analyst Details Entered On: 07/11/2019 1:43 EDT Performed [...]
--- OUTSIDE RECORDS SUMMARY | 2024-08-30 07:38 | XMS_ITS | Encounter Summary ---
Author Organization [employer] ([place], [place], [place], [place]) Address [address] [place] [address] Care Team Providers Care Collar Sewer Name Role Phone Unavailable Primary Care Provider Unavailabl e Encounter Details Date Type Department Care Team (Late st Contact Info) Description 06/18/2019 Transcribed Document [facility] [place] [facility] [place] [address] ProviderMariela MD [address] [place] [address] Social History Tobacco Use Types Packs/Day Years [...] Adrianna Ortiz RN - 06/19/2019 0:15 EDT Electronically signed by Maureen Cornejo Conversion Fiberglass Boat Assembly Supervisor Min at 06/16/2022 8:06 PM CDT documented in this encounter Plan of Treatment Not on file documented as of this encounter Visit Diagnoses Not on filedocumented in this encounter
--- OUTSIDE RECORDS SUMMARY | 2024-08-30 07:38 | XMS_ITS | Encounter Summary ---
Author Organization [employer] ([place], [place], [place], [place]) Address [address] [place] [address] Care Team Providers Care Tool Room Machinist Name Role Phone Unavailable Primary Care Provider Unavailabl e Encounter Details Date Type Department Care Team (Late st Contact Info) Description 08/22/2018 Transcribed Document [facility] [place] [facility] [place] [address] ProviderMariela MD [address] [place] [phone] Social History Tobacco Use Types Packs/Day Years [...] 9:38 EDT by Iris Beyer Nurse - carmen Peripheral Nerve Block Site Marked and Visible [...] Nurse - other - 08/22/2018 9:38 EDT documented in this encounter Plan of Treatment Not on file documented as of this encounter Visit Diagnoses Not on filedocumented in this encounter
--- OUTSIDE RECORDS SUMMARY | 2024-08-30 07:38 | XMS_ITS | Encounter Summary ---
Author Organization [employer] ([place], [place], [place], [place]) Address [address] [place] [address] Care Team Providers Care Magnetic Resonance Imaging Coordinator Name Role Phone Unavailable Primary Care Provider Unavailabl e Encounter Details Date Type Department Care Team (Late st Contact Info) Description 08/24/2020 Transcribed Document [facility] [place] [address] ProviderMariela MD [facility] [place] [address] Social History Tobacco Use Types [...] Cerner Conversion Note - Mariela ProviderMD - 08/24/2020 10:00 AM CDT Pain [...]
--- OUTSIDE RECORDS SUMMARY | 2024-08-30 07:38 | XMS_ITS | Encounter Summary ---
Author Organization [employer] ([place], [place], [place], [place]) Address [address] [place] [address] Care Team Providers Care Editor Sound Name Role Phone Unavailable Primary Care Provider Unavailabl e Encounter Details Date Type Department Care Team (Late st Contact Info) Description 08/22/2018 Transcribed Document [facility] [place] [facility] [address] ProviderMariela MD [address] [place] [address] Social History Tobacco Use Types Packs/Day [...] Source : Stated Height Entry Format : [place] Height, Feet : 4 ft(Converted to: 122 cm, 48 Inch) Height, Inches : 11.5 Inch(Converted to: 0 ft 12 Inch, 29.21 cm) Clinical Height : 151.13 cm Weight Source : Standing scale Weight Entry Format : [place] Clinical Dosing Weight : 97.73 kg Weight, Pounds : 215 lb Body Surface Area (BSA) : 1.91 m2 Body Mass Index : 42.8 kg/m2 (>HHI) [place] Body Weight : 44 kg THIERRY GOODRICH [...] Symptoms : None THIERRY GOODRICH RN - 08/22/2018 7:49 EDT Anesthesia/Transfusion History [...] EDT Legal Guardian : Son Support Person/Patient Hotel Desk Clerk : Yes Support Person/Pt Rep Name : Sam aDn Barrera Yen Support Person/Pt Rep Contact Information : son Vipul) [phone] (Nancy Rust [phone] Want Family/Rep/Phys Notified of Admit : No Emergency Contact #1 : Sy Emergency Contact #1 Emergency Contact #1 Relationship : son Emergency Contact #2 : . Emergency Contact #2 Phone Number : . Emergency Contact #2 Relationship : . Information Obtained From : Patient Primary Language : Occitan Preferred Communication Mode : Verbal Communication Barrier [...] Yes Fay Gait/Transferring : Normal, bedrest, immobile Fay Mental Status : Oriented to own ability Fay Fall Risk Score : 75 FAY Fall Scale Risk Level : 46 or > High Risk [place] Fall Interventions : Adequate lighting, Assistive devices within reach, Bed in low position, Call device within reach, Hourly comfort/safety rounds, Non-slip footwear, Personal items within reach, Upper side-rails up, Wheels locked Barriers to Learning : None evident Learning Style Preferences Family : Printed materials, Verbal explanation Learning Style Preferences Patient : Printed materials, Verbal explanation THIERRY GOODRICH RN - 08/22/2018 7:58 EDT Education [...] the text rendition version of the form. [place] Coma [place] Best Motor Response : Obey commands Nazia Best Verbal Response : Oriented Nazia Eye Opening Response : Spontaneous [place] Coma Score : 15 THIERRY GOODRICH RN - 08/22/2018 7:49 EDT documented in this encounter Plan of Treatment Not on file documented as of this encounter Visit Diagnoses Not on filedocumented in this encounter
--- OUTSIDE RECORDS SUMMARY | 2024-08-30 07:38 | XMS_ITS | Encounter Summary ---
Author Organization [employer] ([place], [place], [place], [place]) Address [address] [place] [address] Care Team Providers Care Arbor Press Operator Name Role Phone Unavailable Primary Care Provider Unavailabl e Encounter Details Date Type Department Care Team (Late st Contact Info) Description 06/29/2019 Transcribed Document [facility] Family Medicine [address] [place] [address] ProviderMariela MD [address] [place], [place] [phone] Social History Tobacco Use Types Packs/Day Years [...] MANUEL CABRAL LPN - 06/29/2019 17:38 EDT documented in this encounter Plan of Treatment Not on file documented as of this encounter Visit Diagnoses Not on filedocumented in this encounter
--- OUTSIDE RECORDS SUMMARY | 2024-08-30 07:38 | XMS_ITS | Encounter Summary ---
Author Organization [employer] ([place], [place], [place], [place]) Address [address] [place] [address] Care Team Providers Care Service Cleaner Name Role Phone Unavailable Primary Care Provider Unavailabl e Encounter Details Date Type Department Care Team (Late st Contact Info) Description 06/17/2019 Transcribed Document [facility] Family Medicine [facility] [place] [place] [address] ProviderMariela MD [address] [place], [place] [phone] Social History Tobacco Use Types Packs/Day Years [...] Conversion Note - Mariela ProviderMD - 06/17/2019 10:06 AM CDT Initial Discharge Planning Entered On: 06/17/2019 10:12 EDT Performed On: 06/17/2019 10:06 EDT by Charleen Ortiz Social Worker-Anti Tank Missileman Initial Assessment I Previously Documented Living Environment [...] Guardianship Needed : No Charleen Ortiz Social Worker-Anti Tank Missileman - 06/17/2019 10:06 EDT Initial Assessment II Sensory and Motor Deficits : Weakness Current Home Treatments and Equipment : Cane, Walker, Wheelchair Services and Community Resources : Private Duty Care Does the Patient have a Floor to SNF Benefit? : No Charleen Ortiz Social Worker-Sulema - 06/17/2019 10:06 EDT Discharge Needs I Anticipated Discharge To, CM : Acute Care Facility, Home with home health, senior living facility Current Home Treatment/Equipment : Current Home Treatment/Equipment No qualifying data available. Post Acute/Home Treatments : None Documentation Status Complete : Yes Charleen Ortiz Social Worker-Sulema - 06/17/2019 10:06 EDT Discharge Needs II Professional Skilled Services : Professional Skilled Services No qualifying data available. Services and Community Resources : Physical Therapy Needs Assistance with Transportation : Maybe Discharge Options Discussed with Patient : Outpatient services Charleen Ortiz Social Worker-Sulema - 06/17/2019 10:06 EDT Narrative Note Narrative Note : 06/16 Spoke with pt via phone. Pt reports she resides alone at [address] [place] [address]. Pt reports she primarily uses a walker [...] here. Continue to follow.... Charleen Ortiz Social Worker-Anti Tank Missileman - 06/17/2019 10:06 EDT documented in this encounter Plan of Treatment Not on file documented as of this encounter Visit Diagnoses Not on filedocumented in this encounter
--- OUTSIDE RECORDS SUMMARY | 2024-08-30 07:38 | XMS_ITS | Encounter Summary ---
Author Organization [employer] ([place], [place], [place], [place]) Address [address] [place] [address] Care Team Providers Care Tutoring Assistant Name Role Phone Unavailable Primary Care Provider Unavailabl e Encounter Details Date Type Department Care Team (Late st Contact Info) Description 06/26/2019 Transcribed Document [facility] [place] [facility] [place] [address] ProviderMariela MD [facility] [place] [address] Social History Tobacco Use Types Packs/Day Years [...] Illness OOCS Misuse Suspected : Other Was JUDIHT queried : Other Patient Advised to seek OOCS Treatment : Other Treatment to Include Limited Supply of OOCS : Other JUDITH Result : Other JUDITH Other Notes : as per the referring facility medical records Patient cancelled on OOCS : Other JUDITH : . DONNA DRIVER MD-INT - 06/26/2019 11:22 EDT Electronically signed by Nikunj Cornejo Conversion Service And Repair Supervisor Cerner at 06/16/2022 8:19 PM CDT documented in this encounter Plan of Treatment Not on file documented as of this encounter Visit Diagnoses Not on filedocumented in this encounter
--- OUTSIDE RECORDS SUMMARY | 2024-08-30 07:38 | XMS_ITS | Encounter Summary ---
Author Organization [employer] ([place], [place], [place], [place]) Address [address] [place] [address] Care Team Providers Care Radio Operator Ground Name Role Phone Unavailable Primary Care Provider Unavailabl e Encounter Details Date Type Department Care Team (Late st Contact Info) Description 07/11/2019 Transcribed Document [facility] [place] Family Medicine [address] [place] [address] ProviderMariela MD [address] [place], [place] [phone] Social History Tobacco Use Types Packs/Day Years [...]
--- OUTSIDE RECORDS SUMMARY | 2024-08-30 07:39 | XMS_ITS | Encounter Summary ---
Author Organization [employer] ([place], [place], [place], [place]) Address [address] [place] [address] Care Team Providers Care Sausage Cutter Name Role Phone Unavailable Primary Care Provider Unavailabl e Encounter Details Date Type Department Care Team (Late st Contact Info) Description 07/11/2019 Transcribed Document [facility] Radiology [address] [place] [address] Shawanda Barahona MD [address] [phone] Social History Tobacco Use Types Packs/Day Years [...] 10:00) L 50 (JULY 09:00) 79 (JULY 09:) MAP 74 (JULY 10 07:00) 74 (JULY 10 07:00) 74 (JULY 10:00) SpO2 96 (JULY 10:00) 96 (JULY 10:00) 99 (JULY 09:) Physical Examination: Gen: Alert, arousable, pleasant HEENT: [...] (JULY 05) L 1.9 (JULY 03) Micro: [facility]: 06/15 [facility] Blood cultures positive for group [...]
--- OUTSIDE RECORDS SUMMARY | 2024-08-30 07:39 | XMS_ITS | Encounter Summary ---
Author Organization [employer] ([place], [place], [place], [place]) Address [address] [place] [address] Care Team Providers Care Apartment Property Manager Name Role Phone Unavailable Primary Care Provider Unavailabl e Encounter Details Date Type Department Care Team (Late st Contact Info) Description 08/22/2018 Transcribed Document [facility] [place] Medicine [facility] [place] [address] ProviderMariela MD [address] [place] [address] Social History Tobacco Use Types Packs/Day Years [...]
--- OUTSIDE RECORDS SUMMARY | 2024-08-30 07:39 | XMS_ITS | Encounter Summary ---
Author Organization [employer] ([place], [place], [place], [place]) Address [address] [place] [address] Care Team Providers Care Agriculture Specialist Name Role Phone Unavailable Primary Care Provider Unavailabl e Encounter Details Date Type Department Care Team (Late st Contact Info) Description 07/12/[address] [facility] [place] [facility] [place] [address] ProviderMariela MD [address] [place] [address] Social History Tobacco Use Types [...] Cerner Conversion Note - Mariela ProviderMD - 07/12/2019 8:38 AM CDT Care Management Assessment/Plan Entered On: 07/12/2019 8:39 EDT Performed On: 07/12/2019 8:38 EDT by YOANNA ARAUJO RN Care Management Note Care Management Note : Yoanna Araujo 07/12/2019 0830 - faxed clinical review the [facility] at [phone] to request approval for extended ltac services. Auth#[id number], awaiting approval. Care Management Note Report : [...] health and she has been to the [facility] and [facility] in the past. She has the following equipment at home: wheel chair, walker, cane and shower chair. Her discharge plan is to go to rehab prior to returning home. PCP: Flavia MARQUEZ [address] [phone] Wastewater Treatment Operator: Dr. Shemar Barger [id number] Clemente Del Rio MD - Rheumatology - [address] [place] [address] Preferences: Home Health: [facility]: no preferences DME: [facility] - [address], [place] [phone] Senior Living: [facility] facility: no preferences Will continue to monitor patient for anticipated discharge needs YOANNA ARAUJO RN - 06/29/19 08:30:20 Yoanna Araujo 06/29/2019 0830 received fax from [facility] with approval for extended ltac coverage with next clinical review due on 07/12/2019. Auth#[id number]. Will continue to follow for anticipated discharge needs. YOANNA ARAUJO RN - 06/28/19 08:35:06 Yoanna Araujo 06/28/2019 0830 Faxed clinical review to [facility] at to request approval for extended Ltac services. Auth#[id number]. Pending Approval. Documentation Status Complete : Yes YOANNA ARAUJO RN - 07/12/2019 8:38 EDT documented in this encounter Plan of Treatment Not on file documented as of this encounter Visit Diagnoses Not on filedocumented in this encounter
--- OUTSIDE RECORDS SUMMARY | 2024-08-30 07:39 | XMS_ITS | Encounter Summary ---
Author Organization [employer] ([place], [place], [place], [place]) Address [address] [place] [address] Care Team Providers Care Agriculture Specialist Name Role Phone Unavailable Primary Care Provider Unavailabl e Encounter Details Date Type Department Care Team (Late st Contact Info) Description 06/26/2019 Transcribed Document [facility] Family [place] [facility] [place] [address] ProviderMariela MD [address] [place] [phone] Social History Tobacco Use Types Packs/Day Years [...] Note - Mariela Gates MD - 06/26/2019 11:25 AM CDT Patient: SOFIA [...] and hypotension then she was transferred to [facility] for higher level of care after she [...] took over the care. Dr. Garcia, from [facility] and the on-call orthopedist Did aspiration [...] 0.9% 50 mL 2 Gram, IV Piggyback, [id number] cyanocobalamin 1,000 mcg tab 5,000 mcg 5 [...] At Bedtime fluticasone 0.05% nasal spray 2 Park[place], Nostrils Both, BID LORazepam 2 mg/mL inj [...] Topical, Q1H phenol 1.4% throat spray 1 [place], Oral, Q2H potassium chloride 10 mEq 100 [...] % 24.4 % Lymph # 2.42 K/uL [place] % 8.7 % [place] # 0.86 K/uL [place] Eos % 2.5 [...] Discharge: Start: 06/26/19 11:21:00 EDT, [facility]. Diagnosis Chronic venous insufficiency - [...] Refill(s) fluticasone 50 mcg/inh nasal spray: 2 Parkin, Nostrils Both, [place], BID, PRN Allergies, 0 Refill(s) gabapentin 300 [...] Refill(s). Impression and Plan twt 65 mn Electronically signed by Maureen Cornejo Conversion Mining And Quarrying Machinery Repairer Cerner at 06/16/2022 8:25 PM CDT documented in this encounter Plan of Treatment Not on file documented as of this encounter Visit Diagnoses Not on filedocumented in this encounter
--- OUTSIDE RECORDS SUMMARY | 2024-08-30 07:39 | XMS_ITS | Encounter Summary ---
Author Organization [employer] ([place], [place], [place], [place]) Address [address] [place] [address] Care Team Providers Care Banbury Mixer Operator Name Role Phone Unavailable Primary Care Provider Unavailabl e Encounter Details Date Type Department Care Team (Late st Contact Info) Description 06/26/2019 Transcribed Document [facility] [place] [address] ProviderMariela MD [address] [place] [phone] Social History Tobacco Use Types Packs/Day Years [...] Conversion Note - Mariela ProviderMD - 06/26/2019 5:45 PM CDT [facility] Inpatient Documentation Entered On: 06/26/2019 17:49 EDT Performed On: 06/26/2019 17:45 EDT by George Dial RN [facility] Admission Date : Admit Date 06/16/2019 [...]
--- OUTSIDE RECORDS SUMMARY | 2024-08-30 07:39 | XMS_ITS | Encounter Summary ---
Author Organization [employer] ([place], [place], [place], [place]) Address [address] [place] [address] Care Team Providers Care Black Top Raker Name Role Phone Unavailable Primary Care Provider Unavailabl e Encounter Details Date Type Department Care Team (Late st Contact Info) Description 07/11/2019 Transcribed Document [facility] Family Medicine [facility] [place] [address] ProviderMariela MD [address] [place] [address] Social History Tobacco Use Types Packs/Day Years [...] RN Intervention Information: indomethacin Performed by Bibi Gallagher, RN on 07/11/2019 21:11:00 EDT indomethacin,25mg Oral Pain Assessment Pain Assessment : Follow-up assessment Pain Scale Used : 0-10 Scale Bibi Gallagher RN - 07/12/2019 4:37 EDT documented in this encounter Plan of Treatment Not on file documented as of this encounter Visit Diagnoses Not on filedocumented in this encounter
--- OUTSIDE RECORDS SUMMARY | 2024-08-30 07:39 | XMS_ITS | Encounter Summary ---
Author Organization [employer] ([place], [place], [place], [place]) Address [address] [place] [address] Care Team Providers Care Copy Messenger Name Role Phone Unavailable Primary Care Provider Unavailabl e Encounter Details Date Type Department Care Team (Late st Contact Info) Description 08/25/2020 Transcribed Document [facility] [place] Medicine [facility] [place] [address] ProviderMariela [place] [address] Social History Tobacco Use Types [...] Historical ProviderMD - 08/25/2020 2:00 AM CDT Nurse Outreach Case Manager Details Entered On: 08/25/2020 1:31 EDT Performed [...] Rayna Carrizales, Rn - 08/25/2020 1:31 EDT Electronically signed by Maureen Cornejo Conversion Battery Container Finishing Hand Cerner at 06/16/2022 8:04 PM CDT documented in this encounter Plan of Treatment Not on file documented as of this encounter Visit Diagnoses Not on filedocumented in this encounter
--- OUTSIDE RECORDS SUMMARY | 2024-08-30 07:39 | XMS_ITS | Encounter Summary ---
Author Organization [employer] ([place], [place], [place], [place]) Address [address] [place] [address] Care Team Providers Care Anesthetist Name Role Phone Unavailable Primary Care Provider Unavailabl e Encounter Details Date Type Department Care Team (Late st Contact Info) Description 08/24/2020 Transcribed Document [facility] [place] Family Medicine [facility] [place] [address] ProviderMariela MD [address] [place] [address] Social History Tobacco Use Types Packs/Day [...] Conversion Note - Mariela ProviderMD - 08/24/2020 9:00 PM CDT Pain [...] 0:40 EDT Pain Scale Intensity : 2 Rayan Carrizales Rn - 08/25/2020 0:40 EDT Image 4 - Images currently included in the form version of this document have not been included in the text rendition version of the form. documented in this encounter Plan of Treatment Not on file documented as of this encounter Visit Diagnoses Not on filedocumented in this encounter
--- OUTSIDE RECORDS SUMMARY | 2024-08-30 07:39 | XMS_ITS | Encounter Summary ---
Author Organization [employer] ([place], [place], [place], [place]) Address [address] [place] [address] Care Team Providers Care Zipper Setter Name Role Phone Unavailable Primary Care Provider Unavailabl e Encounter Details Date Type Department Care Team (Late st Contact Info) Description 08/25/2020 Transcribed Document [facility] [place] Family Medicine [address] [place] [address] ProviderMariela MD [address] [place] [address] Social History Tobacco Use Types [...] 08/25/2020 16:44 EDT Electronically signed by Chantal [facility] Conversion Coal Or Ore Controller Cerbryce at 06/16/2022 8:29 PM CDT documented in this encounter Plan of Treatment Not on file documented as of this encounter Visit Diagnoses Not on filedocumented in this encounter
--- OUTSIDE RECORDS SUMMARY | 2024-08-30 07:39 | XMS_ITS | Encounter Summary ---
Author Organization [employer] ([place], [place], [place]) Address [address] [place] [address] Care Team Providers Care Commercial Trailer Truck Driver Name Role Phone Unavailable Primary Care Provider Unavailabl e Encounter Details Date Type Department Care Team (Late st Contact Info) Description 08/23/2018 Transcribed Document [facility] [place] Family Medicine [facility] [place] [address] ProviderMariela MD [address] [place] [address] Social History Tobacco Use Types Packs/Day Years [...] Historical ProviderMD - 08/23/2018 2:00 AM CDT Legal Job Titles Details Entered On: 08/23/2018 1:22 EDT Performed [...]
--- OUTSIDE RECORDS SUMMARY | 2024-08-30 07:39 | XMS_ITS | Encounter Summary ---
Author Organization [employer] ([place], [place], [place], [place]) Address [address] [place] [address] Care Team Providers Care Rear Load Truck Driver Name Role Phone Unavailable Primary Care Provider Unavailabl e Encounter Details Date Type Department Care Team (Late st Contact Info) Description 08/22/2018 Transcribed Document [facility] [place] [facility] [place] [address] ProviderMariela MD [facility] [place] [address] Social History Tobacco Use Types [...] 12:14 PT Treatment Instructions Ordered By: EPPS, GNOSTICISM, MD-ORT Active Diagnoses : No Qualifying Diagnoses [...] to pt needing to urinate once omid BS is located, RN notified of pt needs [...] Comment : active ankle DF in BLEs DELMY ALLEN Physical Therapist - 08/22/2018 13:16 [...] ALLEN Physical Therapist - 08/22/2018 13:16 EDT Detention Goals Other PT LTG Grid Goal #1 Goal #2 Goal #3 Other : Patient will ambulate at least 50 feet with RWx and no more than Alexandra without LOB or safety concerns to allow safe household or facility ambulation upon [facility] care [place]. Patient will participate with therex [...] the text rendition version of the form. [place] PT Charges Gait Training Each 15 Min : 1 PT Eval Low Complexity : 1 DELMY ALLEN Physical Therapist - 08/22/2018 13:16 EDT documented in this encounter Plan of Treatment Not on file documented as of this encounter Visit Diagnoses Not on filedocumented in this encounter
--- OUTSIDE RECORDS SUMMARY | 2024-08-30 07:39 | XMS_ITS | Encounter Summary ---
Author Organization [employer] ([place], [place], [place], [place]) Address [address] [place] [address] Care Team Providers Care Abalone Fisherman Name Role Phone Unavailable Primary Care Provider Unavailabl e Encounter Details Date Type Department Care Team (Late st Contact Info) Description 06/26/2019 Transcribed Document [facility] Medicine [facility] [place] [address] ProviderMariela MD [address] [place] [address] Social History Tobacco Use Types Packs/Day Years [...] OSMAR AREVALO RN - 07/01/2019 22:17 EDT Electronically signed by Chantal [facility] Conversion Fishing Hand Cerner at 06/16/2022 8:26 PM CDT documented in this encounter Plan of Treatment Not on file documented as of this encounter Visit Diagnoses Not on filedocumented in this encounter
--- OUTSIDE RECORDS SUMMARY | 2024-08-30 07:39 | XMS_ITS | Encounter Summary ---
Author Organization [employer] ([place], [place], [place], [place]) Address [address] [place] [address] Care Team Providers Care Balcony Worker Name Role Phone Unavailable Primary Care Provider Unavailabl e Encounter Details Date Type Department Care Team (Late st Contact Info) Description 08/20/2020 Transcribed Document [facility] [place] [facility] [place] [address] ProviderMariela MD [facility] [address] Social History Tobacco Use Types [...] Mariela ProviderMD - 08/20/2020 4:09 PM CDT [facility] Main OR PACU Summary Primary Physician: NIMO EPPS MD-ORT Finalized Date/Time: 08/20/20 20:56:16 Pt. Name: SOFIA GILL Eufemia Bal/Sex: 1940 Female Med Rec #: [id number] Physician: NIMO EPPS MD-ORT Financial #: [id number] Pt. Type: I Room/Bed: Admit/Disch: 08/20/20 04:48:00 - Institution: [facility] OR PACU Case Times Entry 1 In PACU I 08/20/20 20:23:00 Ready for PACU 08/20/20 20:56:00 Discharge Discharge from PACU 08/20/20 20:56:00 I Last Modified By: ROBERT Macdonald 08/20/20 20:56:09 [facility] Main OR PACU Case Times Audit 08/20/20 20:56:09 Pneumatic Systems Operator: ESTEBANVALENTINE Modifier: LEXA <+> 1 Ready for PACU Discharge <+> 1 Discharge from PACU I Finalized By: ROBERT Macdonald Document Signatures Signed By: ROBERT Macdonald 08/20/20 20:56 Electronically signed by Chantal [facility] Conversion Floral Artist Cerner at 06/16/2022 8:23 PM CDT documented in this encounter Plan of Treatment Not on file documented as of this encounter Visit Diagnoses Not on filedocumented in this encounter
--- OUTSIDE RECORDS SUMMARY | 2024-08-30 07:39 | XMS_ITS | Encounter Summary ---
Author Organization [employer] ([place], [place], [place], [place]) Address [address] [place] [address] Care Team Providers Care Pst Manager Name Role Phone Unavailable Primary Care Provider Unavailabl e Encounter Details Date Type Department Care Team (Late st Contact Info) Description 06/26/2019 Transcribed Document [facility] [place] [facility] [place] [address] ProviderMariela MD [address], [place] [id number] Social History Tobacco Use Types Packs/Day Years [...] Historical ProviderMD - 06/26/2019 2:00 AM CDT Lens Polisher Details Entered On: 06/26/2019 3:07 EDT Performed [...] - 06/26/2019 3:07 EDT Electronically signed by Chantal [facility] Conversion Jigger Operator Cerner at 06/16/2022 8:24 PM CDT documented in this encounter Plan of Treatment Not on file documented as of this encounter Visit Diagnoses Not on filedocumented in this encounter
--- OUTSIDE RECORDS SUMMARY | 2024-08-30 07:39 | XMS_ITS | Encounter Summary ---
Author Organization [employer] ([place], [place], [place], [place]) Address [address] [place] [address] Care Team Providers Care Dowel Maker Name Role Phone Unavailable Primary Care Provider Unavailabl e Encounter Details Date Type Department Care Team (Late st Contact Info) Description 08/25/2020 Transcribed Document [facility] [place] [address] ProviderMariela MD [place] [address] Social History Tobacco Use Types [...] Cerner Conversion Note - Mariela ProviderMD - 08/25/2020 4:00 AM CDT Pain [...]
--- OUTSIDE RECORDS SUMMARY | 2024-08-30 07:39 | XMS_ITS | Encounter Summary ---
Author Organization [employer] ([place], [place], [place], [place]) Address [address] [place] [address] Care Team Providers Care Fur Blowing Machine Operator Name Role Phone Unavailable Primary Care Provider Unavailabl e Encounter Details Date Type Department Care Team (Late st Contact Info) Description 08/20/2020 Transcribed Document [facility] [place] Family Medicine [facility] [place] [address] ProviderMariela MD [facility] [place] [address] Social History Tobacco Use Types [...] Conversion Note - Mariela ProviderMD - 08/20/2020 8:53 PM CDT Pain [...]
--- OUTSIDE RECORDS SUMMARY | 2024-08-30 07:39 | XMS_ITS | Encounter Summary ---
Author Organization [employer] ([place], [place], [place], [place]) Address [address] [place] [address] Care Team Providers Care Supervisor Alum Plant Name Role Phone Unavailable Primary Care Provider Unavailabl e Encounter Details Date Type Department Care Team (Late st Contact Info) Description 08/22/2018 Transcribed Document [facility] [place] Family Medicine [facility] [place] [address] ProviderMariela MD [address] [place], [place] [id number] Social History Tobacco Use Types Packs/Day Years [...] Conversion Note - Mariela ProviderMD - 08/22/2018 2:00 PM CDT Initial Discharge Planning Entered On: 08/22/2018 14:04 EDT Performed On: 08/22/2018 14:00 EDT by Charleen Ortiz Social Worker-Rivet Catcher Initial Assessment I Previously Documented Living Environment [...] Guardianship Needed : No Charleen Ortiz Social Worker-Rivet Catcher - 08/22/2018 14:00 EDT Initial Assessment II Sensory and Motor Deficits : Weakness Charleen Ortiz Social Worker-Rivet Catcher - 08/22/2018 14:00 EDT Discharge Needs I Anticipated Discharge To, CM : half-way facility Current Home Treatment/Equipment : Current Home [...] there in past. Referral was made via [employer]. Contacted [facility] liaison and notified her of the referral. Continue to follow... Charleen Ortiz Social Worker-Rivet Catcher - 08/22/2018 14:00 EDT documented in this encounter Plan of Treatment Not on file documented as of this encounter Visit Diagnoses Not on filedocumented in this encounter
--- OUTSIDE RECORDS SUMMARY | 2024-08-30 07:39 | XMS_ITS | Encounter Summary ---
Author Organization [employer] ([place], [place], [place], [place]) Address [address] [place] [address] Care Team Providers Care Management Trainee Program Stores Name Role Phone Unavailable Primary Care Provider Unavailabl e Encounter Details Date Type Department Care Team (Late st Contact Info) Description 08/20/2020 Transcribed Document [facility] [place] [facility] [place] [address] ProviderMariela MD [facility] [place] [address] Social History Tobacco Use Types [...] Conversion Note - Historical ProviderMD - 08/20/2020 4:48 AM CDT Admission History, [...] Son Legal Guardian : No Support Person/Patient Jewel Bearing Driller : Yes Support Person/Pt Rep Name : Sam Lowe Contact Password : Keily Support Person/Pt Rep Contact Information : son (Sam) [phone] (Nancy Rust [phone] Want Family/Rep/Phys Notified of Admit : No Emergency Contact #1 : Sam Lowe Emergency Contact #1 Emergency Contact #1 Relationship : son Emergency Contact #2 : enrique lowe Emergency Contact #2 Phone Number : [phone] Emergency Contact #2 Relationship : son Information Obtained From : Patient Primary Language : Estonian Preferred Communication Mode : Verbal Communication Barrier : None Rn Hedis Needed : No Currently Lactating : No [...] Level : 46 or > High Risk [place] Fall Interventions : Adequate lighting, Assistive devices [...] 10/16/2016 11:53:56 EDT by RUI EMMANUEL, EDDIE) Drug Use Hx: No. (Last Updated: 08/13/2020 10:21:56 EDT by BINDU MOREIRA, RN) Nutrition/Health: Regular, Caffeine intake amount: occassional. (Last Updated: 10/16/2016 11:54:06 EDT by URI EMMANUEL, RN) Home/Environment: Lives with Alone. Living [...] Source : Stated Height Entry Format : Dougherty Height, Feet : 5 ft(Converted to: 152 cm, 60 Inch) Height, Inches : 0 Inch(Converted to: 0 ft 0 Inch, 0.00 cm) Clinical Height : 152.4 cm Weight Source : Standing scale Weight Entry Format : Dougherty Clinical Dosing Weight : 90.91 kg Weight, Pounds : 200 lb Body Surface Area (BSA) : 1.87 m2 Body Mass Index : 39.1 kg/m2 (HI) Pray Body Weight : 45 kg Hannah Cardoso RN - 08/20/2020 21:31 EDT Infectious Disease History Has the patient ever been tested for COVID-19? : Yes, Patient stated results Negative Where was the COVID-19 Testing completed? : [facility] Where are the test [...] Hannah Cardoso RN - 08/20/2020 21:31 EDT [place] Suicide Severity Rating Scale (C-SSRS) CSSRS Past [...]
--- OUTSIDE RECORDS SUMMARY | 2024-08-30 07:39 | XMS_ITS | Encounter Summary ---
Author Organization [employer] ([place], [place], [place], [place]) Address [address] [place] [address] Care Team Providers Care Inspector Final Assembly Conveyor Line Name Role Phone Unavailable Primary Care Provider Unavailabl e Encounter Details Date Type Department Care Team (Late st Contact Info) Description 08/20/2020 Transcribed Document [facility] [place] Medicine [facility] [place] [address] ProviderMariela MD [address] [place] [address] Social History Tobacco Use Types Packs/Day [...]
--- OUTSIDE RECORDS SUMMARY | 2024-08-30 07:39 | XMS_ITS | Encounter Summary ---
Author Organization [employer] ([place], [place], [place], [place]) Address [address] [address] Care Team Providers Care Venetian Blind Machine Operator Name Role Phone Unavailable Primary Care Provider Unavailabl e Encounter Details Date Type Department Care Team (Late st Contact Info) Description 06/27/2019 Transcribed Document [facility] [place] [place] Medicine [facility] [place] [address] ProviderMariela MD [place] [address] Social History Tobacco Use Types [...] by, OT : Physical Therapist NILA RAMAN OTR/L - 07/13/2019 13:50 EDT Visit Type, OT [...] Other: LLE brace AAT's NILA RAMAN OTR/Bartolo [place] 07/13/2019 10:55 EDT General Status Patient Received Status : Supine in bed Patient Left Status : Up in chair, All needs met and within reach RN/PCT Informed Comment : Caitlyn MORGAN ok'ed tx this AM NILA RAMAN OTR/Bartolo [place] 07/13/2019 13:50 EDT Treatment Start Time : 07/13/2019 9:33 EDT Treatment End Time : 07/13/2019 10:05 EDT Treatment Time : 32 Minute(s) NILA RAMAN OTR/Bartolo - 07/13/2019 10:55 EDT Self Care/Home Management, OT [...] Body Dressing Device Comment, OT : Given content production specialist, states I've been through this before, I [...] Belt, gait, Walker, rolling NILA RAMAN, MARY/Bartolo 07/13/2019 13:50 EDT Functional Mobility Mobility Grid Bed Roll Left : Supervision/set-up Bed Roll Right : Supervision/set-up Bed Scooting : Rehab Minimal assistance Supine to Sit : Rehab Minimal assistance Sit to Stand : Rehab Minimal assistance Bed to Chair : Supervision/set-up Stand to Sit : Supervision/set-up NILA RAMAN OTR/Bartolo 07/13/2019 13:50 EDT Bed Comment : came to EOB from supine with bed all the way down- Min A, patient given leg decker operator to assist with practice from full supine to sit. NILA RAMAN OTR/Bartolo 07/13/2019 13:50 EDT Plan of Care, OT OT Tx Plan/Goals Established w Patient : Yes NILA RAMAN OTR/Bartolo 07/13/2019 13:50 EDT Correction Goals, OT Bathing LTG Grid Goal #1 Activity : Bathing, Upper Extremity Assist : Assist, minimal Date to Meet : 07/25/2019 EDT Goal Status : Not met (Comment: Patient refuses, states that she does not need therapy for this [NILA RAMAN OTR/Bartolo 07/13/2019 13:50 EDT] ) Comment : * Rigoberto Crespo pt is not to take brace off at all. NILA RAMAN OTR/Bartolo - 07/13/2019 13:50 EDT Dressing, Lower Body [...] OTR/Bartolo - 07/13/2019 13:50 EDT NILA RAMAN OTR/Bartolo - 07/13/2019 13:50 EDT Bed Mobility/ Bed Transfer LTG Grid Goal #1 Activity : Bed Mobility/Bed Transfer Assist : Independent, modified Date to Meet : 07/25/2019 EDT Goal Status : Goal met (Comment: Given leg decker operator- Min A from full supine without device. [...] A to sit to EOB (given leg decker operator for future attempts). Stood for toileting hygiene and donning gown. Ambulated out into hallway. with chair follow. Once back to room had long disscussion about ADls in room. Patient is very I at chair level and declines practice at bathing, dressing with AE. Patient given LH sponge and content production specialist as she states she uses these at home. Left [facility] with needs in reach and call light. [...] Electronically signed by Maureen Cornejo Conversion Fiberglass Dowel Drawing Operator Cerner at 06/16/2022 8:29 PM CDT documented in this encounter Plan of Treatment Not on file documented as of this encounter Visit Diagnoses Not on filedocumented in this encounter
--- OUTSIDE RECORDS SUMMARY | 2024-08-30 07:39 | XMS_ITS | Encounter Summary ---
Author Organization [employer] ([place], [place], [place], [place]) Address [address] [place] [address] Care Team Providers Care Cloth Framer Name Role Phone Unavailable Primary Care Provider Unavailabl e Encounter Details Date Type Department Care Team (Late st Contact Info) Description 07/10/2019 Transcribed Document [facility] [place] Family Medicine [facility] [place] [address] ProviderMariela MD [address] [place] [address] Social History Tobacco Use Types Packs/Day Years [...] Georgina Olivo RN - 07/10/2019 23:05 EDT documented in this encounter Plan of Treatment Not on file documented as of this encounter Visit Diagnoses Not on filedocumented in this encounter
--- OUTSIDE RECORDS SUMMARY | 2024-08-30 07:39 | XMS_ITS | Encounter Summary ---
Author Organization [employer] ([place], [place], [place], [place]) Address [address] [place] [address] Care Team Providers Care Bag Cutter Name Role Phone Unavailable Primary Care Provider Unavailabl e Encounter Details Date Type Department Care Team (Late st Contact Info) Description 08/24/2020 Transcribed Document [facility] [place] Family Medicine [address] [place] [address] ProviderMariela MD [address] [place] [address] Social History Tobacco Use Types [...] 08/24/2020 16:21 EDT Electronically signed by Chantal [facility] Conversion Stonemason Apprentice Min at 06/16/2022 8:14 PM CDT documented in this encounter Plan of Treatment Not on file documented as of this encounter Visit Diagnoses Not on filedocumented in this encounter
--- OUTSIDE RECORDS SUMMARY | 2024-08-30 07:39 | XMS_ITS | Encounter Summary ---
Author Organization [employer] ([place], [place], [place], [place]) Address [address] [place] [address] Care Team Providers Care Dry Box Operator Name Role Phone Unavailable Primary Care Provider Unavailabl e Encounter Details Date Type Department Care Team (Late st Contact Info) Description 08/25/2020 Transcribed Document [facility] [place] Family Medicine [facility] [place] [address] ProviderMariela MD [address] [place] [address] Social History Tobacco Use Types Packs/Day [...] Conversion Note - Mariela Gates MD - 08/25/2020 8:26 PM CDT Patient: SOFIA GILL Age: 80 [...] EDT Chloraseptic Menthol 1.4% topical spray: 5 Frost, Oral, Frost, Q2H, PRN for Sore Throat, Routine, Start [...] EDT fluticasone 50 mcg/inh nasal spray: 2 Frost, Nostrils Both, Frost, BID, PRN for Allergies, Routine, Start 08/20/20 [...] Refill(s) fluticasone 50 mcg/inh nasal spray: 2 Frost, Nostrils Both, Frost, BID, PRN Allergies, 0 Refill(s) furosemide 40 [...] Oral, Daily fluticasone 0.05% nasal spray 2 Frost, Nostrils Both, BID magnesium hydroxide 8% liq [...] Oral, Q4H phenol 1.4% throat spray 5 Frost, Oral, Q2H senna 8.6 mg tab 8.6 mg 1 Tab, Oral, At Bedtime traZODone 50 mg tab 50 mg 1 Tab, Oral, At Bedtime Problem list: Medical Cardiac arrhythmia / SNOMED CT 6767838696 / Confirmed Cataract / SNOMED CT 3637885088 / Confirmed Chronic venous insufficiency / SNOMED CT 97236751 / Confirmed Constipation / SNOMED CT 692298591 / Confirmed Edema - BLE / SNOMED CT 189396917 / Confirmed History of obstructive sleep apnea / IMO 89347786 / Confirmed HTN (hypertension) / SNOMED CT 5085867464 / Confirmed Hx: GERD (gastroesophageal reflux disease) / SNOMED CT 2011524081 / Confirmed Hypercholesteremia / SNOMED CT 07917155 / Confirmed Hypothyroid / SNOMED CT 368426856 / Confirmed Kidney cysts right / SNOMED CT 8292640003 / Confirmed Knee pain, bilateral / SNOMED CT 965326835 / Confirmed Lung abnormality right / SNOMED CT 7969631782 / Confirmed Murmur, cardiac / SNOMED CT 9378816742 / Confirmed Osteoarthritis / SNOMED CT 6969957726 / Confirmed Osteoporosis / SNOMED CT 460360492 / Confirmed Pain management / SNOMED CT 043256444 / Confirmed Redness bilateral lower legs / SNOMED CT 8499539348 / Confirmed Seasonal allergies / SNOMED CT 858094732 / Confirmed Shoulder pain, bilateral / SNOMED CT 5155900064 / Confirmed Sleep apnea / SNOMED CT 967170383 / Confirmed, Active Problems (21) Cardiac arrhythmia [...] % 24.3 % Lymph # 2.40 K/uL [place] % 11.0 % [place] # 1.09 K/uL [place] Eos % 4.0 [...] 1-Time, Stop: 08/26/20 4:00:00 EDT, Lab Collect. Electronically signed by Maureen Cornejo Conversion Trust Evaluation Supervisor Cerner at 06/16/2022 8:12 PM CDT documented in this encounter Plan of Treatment Not on file documented as of this encounter Visit Diagnoses Not on filedocumented in this encounter
--- OUTSIDE RECORDS SUMMARY | 2024-08-30 07:39 | XMS_ITS | Encounter Summary ---
Author Organization [employer] ([place], [place], [place], [place]) Address [address] [place] [address] Care Team Providers Care Restaurant Delivery Driver Name Role Phone Unavailable Primary Care Provider Unavailabl e Encounter Details Date Type Department Care Team (Late st Contact Info) Description 08/22/2018 Transcribed Document [facility] [place] Family Medicine [facility] [place] [address] ProviderMariela MD [facility] [place] [address] Social History Tobacco Use Types [...] Conversion Note - Mariela ProviderMD - 08/22/2018 8:07 AM CDT Patient: [...] Daily fluticasone 50 mcg/inh nasal spray 2 [place], PRN, Nostrils Both, BID Lasix 40 mg [...] Q6H PRNpain, Rescue Pain Tylenol 1000mg TID Electronically signed by Chantal, [facility] Conversion Byproduct Engineer Cerner at 06/16/2022 8:24 PM CDT documented in this encounter Plan of Treatment Not on file documented as of this encounter Visit Diagnoses Not on filedocumented in this encounter
--- OUTSIDE RECORDS SUMMARY | 2024-08-30 07:39 | XMS_ITS | Encounter Summary ---
Author Organization [employer] ([place], [place], [place]) Address [address] [place] [address] Care Team Providers Care Hand Pattern Marker Name Role Phone Unavailable Primary Care Provider Unavailabl e Encounter Details Date Type Department Care Team (Late st Contact Info) Description 07/10/2019 Transcribed Document [facility] Radiology [address] [place] [address] Shawanda Barahona MD [address] [id number] Social History Tobacco Use Types Packs/Day Years [...] 09:38) 16 (JULY 08 23:00) 18 (JULY 08:00) SBP 103 (JULY 09:38) 103 (JULY 09:38) 134 (JULY 08:00) DBP L 40 (JULY 09:38) L 40 (JULY 09:38) L 50 (JULY 08:00) MAP 54 (JULY 09:38) 54 (JULY 09:38) 54 (JULY 09:38) SpO2 95 (JULY 09:38) 95 (JULY 09:38) 98 (JULY 08:00) Physical Examination: Gen: Alert, arousable, pleasant HEENT: [...] (JULY 05) L 1.9 (JULY 03) Micro: [facility]: 06/15 [facility] Blood cultures [...]
--- OUTSIDE RECORDS SUMMARY | 2024-08-30 07:39 | XMS_ITS | Encounter Summary ---
Author Organization [employer] ([place], [place], [place], [place]) Address [address] [place] [address] Care Team Providers Care Forming Machine Tender Name Role Phone Unavailable Primary Care Provider Unavailabl e Encounter Details Date Type Department Care Team (Late st Contact Info) Description 07/12/2019 Transcribed Document [facility] [place] Family Medicine [facility] [place] [address] ProviderMariela MD [address] [place] [id number] Social History Tobacco Use Types Packs/Day Years [...] Conversion Note - Mariela Gates MD - 07/12/2019 7:07 PM CDT Patient: SOFIA GILL Age: 79 [...] 0.9% 50 mL 2 Gram, IV Piggyback, [id number] cyanocobalamin 1,000 mcg tab 5,000 mcg 5 [...] Oral, Q4H fluticasone 0.05% nasal spray 2 [place], Nostrils Both, BID magnesium hydroxide 8% liq [...]
--- OUTSIDE RECORDS SUMMARY | 2024-08-30 07:39 | XMS_ITS | Encounter Summary ---
Author Organization [employer] ([place], [place], [place], [place]) Address [address] [place] [address] Care Team Providers Care Leno Sewer Name Role Phone Unavailable Primary Care Provider Unavailabl e Encounter Details Date Type Department Care Team (Late st Contact Info) Description 08/20/2020 Transcribed Document [facility] [facility] [place] [address] ProviderMariela MD [address] [place] [address] Social History Tobacco Use Types Packs/Day [...] Conversion Note - Mariela Gates MD - 08/20/2020 11:40 AM CDT Consult Phone [...] Physician Returning Call : DONNA DRIVER MD-INT FISHER, REGINA - 08/20/2020 21:15 EDT documented in this encounter Plan of Treatment Not on file documented as of this encounter Visit Diagnoses Not on filedocumented in this encounter
--- OUTSIDE RECORDS SUMMARY | 2024-08-30 07:39 | XMS_ITS | Encounter Summary ---
Author Organization [employer] ([place], [place], [place], [place]) Address [address] [place] [address] Care Team Providers Care Tetryl Wringer Operator Name Role Phone Unavailable Primary Care Provider Unavailabl e Encounter Details Date Type Department Care Team (Late st Contact Info) Description 07/12/2019 Transcribed Document [facility] [place] [place] [facility] [address] ProviderMariela MD [address] [place] [address] Social History Tobacco Use Types [...] 07/12/2019 9:[address], LD Interdisciplinary Rounds Working Summary Patient's Priority Needs : IV abx -> plan 8 wks then transition to PO PT/OT Brace in place-> dressing changed daily Current DRG/LOS : 560 Aftercare, musculoskeletal & connective tissue 21-25 days Anticipated DC 07/21/2019 Dietitian Interdisciplinary Rounds Note : Diet: Regular +magic cup BID + Ensure 1x/day Intake: Avg 80% x 7 meals LBM 5.[address], LD - 07/12/2019 9:28 EDT documented in this encounter Plan of Treatment Not on file documented as of this encounter Visit Diagnoses Not on filedocumented in this encounter
--- OUTSIDE RECORDS SUMMARY | 2024-08-30 07:39 | XMS_ITS | Encounter Summary ---
Author Organization [employer] ([place], [place], [place], [place]) Address [address] [place] [address] Care Team Providers Care Cigarette Filter Inspector Name Role Phone Unavailable Primary Care Provider Unavailabl e Encounter Details Date Type Department Care Team (Late st Contact Info) Description 06/27/2019 Transcribed Document [facility] [place] [address] [place] [address] ProviderMariela MD [address] [place] [address] Social History Tobacco Use Types Packs/Day Years [...] Historical ProviderMD - 06/27/2019 9:37 AM CDT CareSet Drug Regimen Review, [facility] Entered On: 06/27/2019 9:39 EDT Performed On: [...]
--- OUTSIDE RECORDS SUMMARY | 2024-08-30 07:39 | XMS_ITS | Encounter Summary ---
Author Organization [employer] ([place], [place], [place], [place]) Address [address] [place] [address] Care Team Providers Care Sprinkling System Installer Name Role Phone Unavailable Primary Care Provider Unavailabl e Encounter Details Date Type Department Care Team (Late st Contact Info) Description 06/26/[address] [facility] [place] Family Medicine [facility] [place] [address] ProviderMariela MD [facility] [place] [id number] Social History Tobacco Use Types Packs/Day Years [...] Conversion Note - Historical ProviderMD - 06/26/2019 6:33 PM CDT Admission History, [...] Sy Legal Guardian : No Support Person/Patient Department Manager : Yes Support Person/Pt Rep Name : Sam Barlow Contact Password : Keily Support Person/Pt Rep Contact Information : son Vipul) [phone] (Nancy Rust [phone] Want Family/Rep/Phys Notified of Admit : No Emergency Contact #1 : Sam Barlow Emergency Contact #1 Emergency Contact #1 Relationship : Son Emergency Contact #2 : Sy Barlow Emergency Contact #2 Emergency Contact #2 Relationship : Son Primary Language : Cymro Preferred Communication Mode : Verbal Communication Barrier [...] IV Access : Yes Fay Gait/Transferring : Impaired Fay Mental Status : Oriented to own ability Fay Fall Risk Score : 55 FAY Fall Scale Risk Level : 25-45 Medium Risk [place] Fall Interventions : Adequate lighting, Assistive devices [...] 30 days) Smokeless Tobacco Status : Never KASSI WATSON RN - 06/26/2019 18:38 EDT Social [...] Source : Chart Height Entry Format : [place] Height, Feet : 4 ft(Converted to: 122 cm, 48 Inch) Height, Inches : 11 Inch(Converted to: 0 ft 11 Inch, 27.94 cm) Clinical Height : 149.86 cm Weight Source : Bed scale Weight Entry Format : [place] Body Weight : 43 kg KASSI WATSON [...] KASSI WATSON RN - 06/26/2019 18:38 EDT [place] Suicide Severity Rating Scale (C-SSRS) CSSRS Past [...] KASSI WATSON RN - 06/26/2019 18:38 EDT documented in this encounter Plan of Treatment Not on file documented as of this encounter Visit Diagnoses Not on filedocumented in this encounter
--- OUTSIDE RECORDS SUMMARY | 2024-08-30 07:39 | XMS_ITS | Encounter Summary ---
Author Organization [employer] ([place], [place], [place]) Address [address] [place] [address] Care Team Providers Care Animal Care Provider Name Role Phone Unavailable Primary Care Provider Unavailabl e Encounter Details Date Type Department Care Team (Late st Contact Info) Description 06/26/2019 Transcribed Document [facility] [place] Family Medicine [facility] [place] [address] ProviderMariela MD [address] [place] [address] Social History Tobacco Use Types Packs/Day Years [...] EDT Electronically signed by Maureen Cornejo Conversion Recreation Attendant Supervisor Cerner at 06/16/2022 8:30 PM CDT documented in this encounter Plan of Treatment Not on file documented as of this encounter Visit Diagnoses Not on filedocumented in this encounter
--- OUTSIDE RECORDS SUMMARY | 2024-08-30 07:39 | XMS_ITS | Encounter Summary ---
Author Organization [employer] ([place], [place], [place], [place]) Address [address] [place] [address] Care Team Providers Care Truck Greaser Name Role Phone Unavailable Primary Care Provider Unavailabl e Encounter Details Date Type Department Care Team (Late st Contact Info) Description 08/22/2018 Transcribed Document [facility] [place] Medicine [facility] [place] [address] ProviderMariela MD [address] [place] [address] Social History Tobacco Use Types Packs/Day Years [...] 08/22/2018 9:40 EDT Electronically signed by Chantal [facility] Conversion Distillation Operator Cerner at 06/16/2022 8:22 PM CDT documented in this encounter Plan of Treatment Not on file documented as of this encounter Visit Diagnoses Not on filedocumented in this encounter
--- OUTSIDE RECORDS SUMMARY | 2024-08-30 07:39 | XMS_ITS | Encounter Summary ---
Author Organization [employer] ([place], [place], [place], [place]) Address [address] [place] [address] Care Team Providers Care Pewter Finisher Name Role Phone Unavailable Primary Care Provider Unavailabl e Encounter Details Date Type Department Care Team (Late st Contact Info) Description 08/23/2018 Transcribed Document [facility] [place] Family Medicine [address] [place] [address] ProviderMariela MD [address] [place], [place] [phone] Social History Tobacco Use Types Packs/Day Years [...]
--- OUTSIDE RECORDS SUMMARY | 2024-08-30 07:39 | XMS_ITS | Encounter Summary ---
Author Organization [employer] ([place], [place], [place], [place]) Address [address] [place] [address] Care Team Providers Care Gymnastics Coach Or Instructor Name Role Phone Unavailable Primary Care Provider Unavailabl e Encounter Details Date Type Department Care Team (Late st Contact Info) Description 08/20/2020 Transcribed Document [facility] [place] Family Medicine [facility] [place] [address] ProviderMariela MD [address] [place] [address] Social History Tobacco Use Types Packs/Day [...] Temperature, C : 36.8 Deg C THIERRY GOODRICH RN - 08/20/2020 15:35 EDT Pulse Method [...] Source : Stated Height Entry Format : [place] Height, Feet : 5 ft(Converted to: 152 cm, 60 Inch) Height, Inches : 0 Inch(Converted to: 0 ft 0 Inch, 0.00 cm) Clinical Height : 152.4 cm Weight Source : Standing scale Weight Entry Format : [place] Clinical Dosing Weight : 90.91 kg Weight, Pounds : 200 lb Body Surface Area (BSA) : 1.87 m2 Body Mass Index : 39.1 kg/m2 (HI) [place] Body Weight : 45 kg THIERRY GOODRICH [...] Where was the COVID-19 Testing completed? : [facility] Where are the test [...] THIERRY GOODRICH RN - 08/20/2020 15:27 EDT [place] Suicide Severity Rating Scale (C-SSRS) CSSRS Past [...] Son Legal Guardian : No Support Person/Patient Production Department Supervisor : Yes Support Person/Pt Rep Name : Sam Barlow Contact Password : Keily Support Person/Pt Rep Contact Information : son (Sam) [phone] (Nancy Rust [phone] Want Family/Rep/Phys Notified of Admit : No Emergency Contact #1 : Sam Barlow Emergency Contact #1 Emergency Contact #1 Relationship : son Emergency Contact #2 : - Emergency Contact #2 Phone Number : - Emergency Contact #2 Relationship : - Information Obtained From : Patient Primary Language : Moldovan Preferred Communication Mode : Verbal Communication Barrier : None Cube Cutter Needed : No Currently Lactating : No [...]
--- OUTSIDE RECORDS SUMMARY | 2024-08-30 07:39 | XMS_ITS | Encounter Summary ---
Author Organization [employer] ([place], [place], [place], [place]) Address [address] [place] [address] Care Team Providers Care Senior Market Research Analyst Name Role Phone Unavailable Primary Care Provider Unavailabl e Encounter Details Date Type Department Care Team (Late st Contact Info) Description 08/25/[address] [facility] [place] Family Medicine [facility] [place] [address] [place] [address] Social History Tobacco Use Types Packs/Day Years Used Date Smoking Tobacco: Never Assessed Comments Unknown Sex and Gender Information Value Date Recorded Sex Assigned at Female 09/02/2021 8:57 PM CDT Legal Sex Female 6:58 PM CDT Gender Identity Female 09/02/2021 8:57 PM CDT Sexual Orientation Not on file documented as of this encounter Miscellaneous Notes * [place] Conversion Note - Mariela ProviderMD - 08/25/2020 10:00 AM CDT Pain [...]
--- OUTSIDE RECORDS SUMMARY | 2024-08-30 07:39 | XMS_ITS | Encounter Summary ---
Author Organization [employer] ([place], [place], [place], [place]) Address [address] [place] [address] Care Team Providers Care Lens Blocker Name Role Phone Unavailable Primary Care Provider Unavailabl e Encounter Details Date Type Department Care Team (Late st Contact Info) Description 08/20/2020 Transcribed Document [facility] [place] [facility] [place] [address] ProviderMariela MD [facility] [place] [address] Social History Tobacco Use Types [...] Note - Mariela Gates MD - 08/20/2020 11:10 PM CDT Patient: SOFIA [...] EDT Chloraseptic Menthol 1.4% topical spray: 5 [place], Oral, [place], Q2H, PRN for Sore Throat, Routine, Start [...] 50 mcg/inh nasal spray: 100 mcg, 2 [place], Nostrils Both, [place], BID, PRN for Allergies, Routine, Start 08/20/20 [...] Refill(s) fluticasone 50 mcg/inh nasal spray: 2 [place], Nostrils Both, [place], BID, PRN Allergies, 0 Refill(s) furosemide 40 [...] Daily fluticasone 50 mcg/inh nasal spray 2 [place], PRN, Nostrils Both, BID furosemide 40 mg [...] fluticasone 0.05% nasal spray 100 mcg 2 [place], Nostrils Both, BID magnesium hydroxide 8% liq [...] Oral, Q4H phenol 1.4% throat spray 5 [place], Oral, Q2H promethazine 25 mg tab 12.5 mg 0.5 Tab, Oral, Q6H promethazine 25 mg/1 mL inj 12.5 mg 0.5 mL, IV Push, Q6H senna 8.6 mg tab 8.6 mg 1 Tab, Oral, At Bedtime traZODone 50 mg tab 50 mg 1 Tab, Oral, At Bedtime Problem list: Medical Cardiac arrhythmia / SNOMED CT 6327243525 / Confirmed Cataract / SNOMED CT 5973239874 / Confirmed Chronic venous insufficiency / SNOMED CT 02611883 / Confirmed Constipation / SNOMED CT 788062441 / Confirmed Edema - BLE / SNOMED CT 643982505 / Confirmed History of obstructive sleep apnea / IMO 08040594 / Confirmed HTN (hypertension) / SNOMED CT 7390010825 / Confirmed Hx: GERD (gastroesophageal reflux disease) / SNOMED CT 6693385111 / Confirmed Hypercholesteremia / SNOMED CT 18526375 / Confirmed Hypothyroid / SNOMED CT 417808640 / Confirmed Kidney cysts right / SNOMED CT 3447271864 / Confirmed Knee pain, bilateral / SNOMED CT 354965641 / Confirmed Lung abnormality right / SNOMED CT 6926605939 / Confirmed Murmur, cardiac / SNOMED CT 6536066388 / Confirmed Osteoarthritis / SNOMED CT 9315510883 / Confirmed Osteoporosis / SNOMED CT 760160501 / Confirmed Pain management / SNOMED CT 742278055 / Confirmed Redness bilateral lower legs / SNOMED CT 5495838235 / Confirmed Seasonal allergies / SNOMED CT 873758815 / Confirmed Shoulder pain, bilateral / SNOMED CT 9224428998 / Confirmed Sleep apnea / SNOMED CT 777003669 / Confirmed, Active Problems (21) Cardiac arrhythmia [...] knee ORIF. lap band. Babak filter. Colonoscopy ([id number]). Social History Patient is and has 2 [...] swelling, No deformity, Normal gait. Integumentary: Warm, Nambe, Intact, No pallor, No rash, WOUND STABLE. [...] then you may give Tylenol 650 mg PO/DE x 1. If no response in 2 [...]
--- OUTSIDE RECORDS SUMMARY | 2024-08-30 07:39 | XMS_ITS | Encounter Summary ---
Author Organization [employer] ([place], [place], [place], [place]) Address [address] [place] [address] Care Team Providers Care Security Alarm Installer Name Role Phone Unavailable Primary Care Provider Unavailabl e Encounter Details Date Type Department Care Team (Late st Contact Info) Description 08/23/2018 Transcribed Document [facility] [place] Family Medicine [facility] [place] [address] ProviderMariela MD [address] [place] [address] Social History Tobacco Use Types Packs/Day Years [...]
--- OUTSIDE RECORDS SUMMARY | 2024-08-30 07:39 | XMS_ITS | Encounter Summary ---
Author Organization [employer] ([place], [place], [place], [place]) Address [address] [place] [address] Care Team Providers Care Microsoft Dynamics Ax Developer Name Role Phone Unavailable Primary Care Provider Unavailabl e Encounter Details Date Type Department Care Team (Late st Contact Info) Description 07/11/2019 Transcribed Document [facility] [place] [facility] [place] [address] ProviderMariela MD [facility] [place] [address] Social History Tobacco Use Types [...] 07/11/2019 13:28 EDT by MASSIEL HENDERSON PharmD, BCPS Interdisciplinary Rounds Working Summary Patient's Priority Needs [...] for DVT prophylaxis only. MASSIEL HENDERSON PharmD, BCPS - 07/11/2019 13:28 EDT documented in this encounter Plan of Treatment Not on file documented as of this encounter Visit Diagnoses Not on filedocumented in this encounter
--- OUTSIDE RECORDS SUMMARY | 2024-08-30 07:39 | XMS_ITS | Encounter Summary ---
Author Organization [employer] ([place], [place], [place], [place]) Address [address] [place] [address] Care Team Providers Care Aco Coordinator Name Role Phone Unavailable Primary Care Provider Unavailabl e Encounter Details Date Type Department Care Team (Late st Contact Info) Description 07/12/2019 Transcribed Document [facility] [place] [address] [place] [address] ProviderMariela MD [address] [place] [address] Social History Tobacco Use Types [...] Caitlyn Chauhan Rn - 07/12/2019 18:19 EDT documented in this encounter Plan of Treatment Not on file documented as of this encounter Visit Diagnoses Not on filedocumented in this encounter
--- OUTSIDE RECORDS SUMMARY | 2024-08-30 07:39 | XMS_ITS | Encounter Summary ---
Author Organization [employer] ([place], [place], [place], [place]) Address [address] [place] [address] Care Team Providers Care Elementary School Counselor Name Role Phone Unavailable Primary Care Provider Unavailabl e Encounter Details Date Type Department Care Team (Late st Contact Info) Description 06/26/2019 Transcribed Document [facility] [place] Family Medicine [facility] [place] [address] ProviderMariela MD [address] [place] [address] Social History Tobacco Use Types Packs/Day [...] Note - Mariela Gates MD - 06/26/2019 1:04 [place] [address] SOFIA GILL :1940 Visit Time:06/16/2019 Your Visit [...] (fluticasone 50 mcg/ inh nasal spray) 2 [place](s) Nostrils Both Two Times A Day as [...] or 4 frozen water bottles in the [facility] cube. ??? Contact a health care provider [...] Barley. Bulgur wheat. Millet. Bran muffins. Popcorn. [place] wafer crackers. ??? Vegetables Sweet potatoes. Spinach. Kale. Artichokes. Cabbage. Broccoli. Green peas. Carrots. Squash. ??? Fruits Berries. Pears. Apples. Oranges. Avocados. Prunes and raisins. Dried figs. ??? Meats and Other Protein Sources [place], kidney, call, and soy beans. Split peas. [...] gray has 11 g of protein. ??? Grand seeds ??? 1 oz has 5.5 g [...] floor. ??? Place frequently used items in kmba-ze-xaemu places ??? Keep electrical cables out of [...] ? Using the bathroom. ? Using household mitten sewer or toxic chemicals. ? Touching or taking [...] To Walk With a Standard Walker: 1. set up machinist your walker. Do not slide your standard [...] 02/15/2006 Document Revised: 07/15/2016 Document Reviewed: 08/30/2015 [employer] Patient Education ?? 2019 [employer]. Emergency Awareness and Preventative Care STROKE is [...] Assistance with quitting is available by contacting 6-623-LGQT-NOW. This is a free resource providing counseling, [...] range between ( 1.0 and 7.0 ) Brule #: 0.86 K/uL -- Normal range between ( 0.24 and 0.82 ) Eos #: 0.25 K/uL -- Normal range between ( 0.04 and 0.54 ) [place] %: 8.7 % -- Normal range between [...] ANC #: 16 K/uL Toxic Granulation: 1+ [place] Percent Man: 6 % -- Normal range between ( 4 and 5 ) Neutrophil Percent Man: 77 % -- Normal range between ( 50 and 65 ) Platelet Ct Estimate: Increased Lymph Percent Man: 16 % -- Normal range between ( 24 and 44 ) 06/22/2019 2:40 AM [place] Percent Man: 3 % -- Normal range [...] ) Urine Bilirubin Dipstick: Small Urine Specific [place]: 1.033 -- Normal range between ( 1.005 [...] Red Appearance BF: Bloody Auto RBC BF: 223715 /uL -- Normal range between ( 0 and 39343 ) Auto WBC/Nucleated Cells BF: 45641 /uL -- Normal range between ( 0 [...] was given the opportunity to ask questions. Patient/Trim Sawyer Name: Patient/Trim Sawyer Signature: Relationship to Patient: Clinician/Hospital Trim Sawyer Signature: Date: documented in this encounter Plan of Treatment Not on file documented as of this encounter Visit Diagnoses Not on filedocumented in this encounter
--- OUTSIDE RECORDS SUMMARY | 2024-08-30 07:39 | XMS_ITS | Encounter Summary ---
Author Organization [employer] ([place], [place], [place], [place]) Address [address] [place] [address] Care Team Providers Care Weapons Mechanic Name Role Phone Unavailable Primary Care Provider Unavailabl e Encounter Details Date Type Department Care Team (Late st Contact Info) Description 08/20/2020 Transcribed Document [facility] [place] [address] [place] [address] ProviderMariela MD [address] [place] [address] Social History Tobacco Use Types [...] THIERRY GOODRICH, RN - 08/20/2020 14:50 EDT Electronically signed by Chantal [facility] Conversion Air Hammer Operator Cerner at 06/16/2022 8:05 PM CDT documented in this encounter Plan of Treatment Not on file documented as of this encounter Visit Diagnoses Not on filedocumented in this encounter
--- OUTSIDE RECORDS SUMMARY | 2024-08-30 07:39 | XMS_ITS | Encounter Summary ---
Author Organization [employer] ([place], [place], [place], [place]) Address [address] [address] Care Team Providers Care Benchroom Shop Optician Name Role Phone Unavailable Primary Care Provider Unavailabl e Encounter Details Date Type Department Care Team (Late st Contact Info) Description 08/20/2020 Transcribed Document [facility] [place] Family Medicine [facility] [place] [address] ProviderMariela MD [address] [place] [address] Social History Tobacco Use Types [...] Conversion Note - Mariela ProviderMD - 08/20/2020 6:05 PM CDT Patient [...] or 4 frozen water bottles in the [facility]. ?? Continue to use Incentive [...] Barley. Bulgur wheat. Millet. Bran muffins. Popcorn. [place] wafer crackers. ?? Vegetables Sweet potatoes. Spinach. Kale. Artichokes. Cabbage. Broccoli. Green peas. Carrots. Squash. ?? Fruits Berries. Pears. Apples. Oranges. Avocados. Prunes and raisins. Dried figs. ?? Meats and Other Protein Sources [place], kidney, call, and soy beans. Split peas. [...] gray has 11 g of protein. ?? [place] seeds - 1 oz has 5.5 g [...] floor. ?? Place frequently used items in kcgo-cw-yrawg places ?? Keep electrical cables out of [...] ? Using the bathroom. ? Using household cracking unit operator or toxic chemicals. ? Touching or taking [...]
--- OUTSIDE RECORDS SUMMARY | 2024-08-30 07:39 | XMS_ITS | Encounter Summary ---
Author Organization [employer] ([place], [place], [place], [place]) Address [address] [place] [address] Care Team Providers Care Head Transfer Clerk Name Role Phone Unavailable Primary Care Provider Unavailabl e Encounter Details Date Type Department Care Team (Late st Contact Info) Description 06/26/2019 Transcribed Document [facility] [place] [facility] [place] [address] ProviderMariela MD [facility] [place] [id number] Social History Tobacco Use Types Packs/Day Years [...] Discharged from hospital Discharged to, Therapy : [facility] Discharge Summary Comment, PT : 0/3 acute PT goals met - did not progress as expected. Mod A x 2 supine to sit Mod A x 2 sit to stand Able to take a few steps with RWx bed to chair with Mod A x 2 Brace on L LE D/C to LTACH at [facility] for continued care and rehab on 06/26/19. TOR MEJIA, PT - 06/29/2019 6:39 EDT Group Home Worker Goals Other PT LTG Grid Goal #1 [...]
--- OUTSIDE RECORDS SUMMARY | 2024-08-30 07:39 | XMS_ITS | Encounter Summary ---
Author Organization [employer] ([place], [place], [place], [place]) Address [address] [place] [address] Care Team Providers Care Spd Tech Name Role Phone Unavailable Primary Care Provider Unavailabl e Encounter Details Date Type Department Care Team (Late st Contact Info) Description 08/24/2020 Transcribed Document [facility] [place] Family Medicine [facility] [place] [address] ProviderMariela MD [address] [place] [address] Social History Tobacco Use Types Packs/Day [...] Conversion Note - Mariela ProviderMD - 08/24/2020 4:00 AM CDT Pain [...] form. Electronically signed by Interface, Maureen Conversion Electrical Sign Wirer Helper Cerner at 06/16/2022 8:25 PM CDT documented in this encounter Plan of Treatment Not on file documented as of this encounter Visit Diagnoses Not on filedocumented in this encounter
--- OUTSIDE RECORDS SUMMARY | 2024-08-30 07:39 | XMS_ITS | Encounter Summary ---
Author Organization [employer] ([place], [place], [place], [place]) Address [address] [place] [address] Care Team Providers Care Photocomposition Keyboard Operator Name Role Phone Unavailable Primary Care Provider Unavailabl e Encounter Details Date Type Department Care Team (Late st Contact Info) Description 06/27/2019 Transcribed Document [facility] [place] [address] [place] [address] ProviderMariela MD [address] [place], [place] [id number] Social History Tobacco Use Types Packs/Day Years [...] Yes All Active Orders Reviewed : Yes Ciatlyn Chauhan Rn - 06/27/2019 15:11 EDT documented in this encounter Plan of Treatment Not on file documented as of this encounter Visit Diagnoses Not on filedocumented in this encounter
--- OUTSIDE RECORDS SUMMARY | 2024-08-30 07:39 | XMS_ITS | Encounter Summary ---
Author Organization [employer] ([place], [place], [place], [place]) Address [address] [place] [address] Care Team Providers Care Journeyman Powerhouse Operator Name Role Phone Unavailable Primary Care Provider Unavailabl e Encounter Details Date Type Department Care Team (Late st Contact Info) Description 06/27/2019 Transcribed Document [facility] [place] [facility] [place] [address] ProviderMariela MD [address] [place] [address] Social History Tobacco Use [...] Conversion Note - Mariela ProviderMD - 06/27/2019 3:44 PM CDT PLEASE MODIFY BEFORE SIGNING CLINICAL DOCUMENTATION CLARIFICATION FORM: Dear : Alannah Date / Time: 06/27/2019 2820 Please exercise your independent, professional judgment in responding to the clarification form. Clinical indicators are provided on the bottom of this form for your review Please check appropriate box(es): [ ] Active Sepsis is present upon admission to [facility] [ x ] Patient does not have active sepsis upon admission to [facility] but is recovering from sepsis and still receiving treatment [ ] Patient does not have sepsis upon admission to [facility] ] Other diagnosis [ ] Unable to [...] infection and recurrent falls, was admitted to [facility] with a periprosthetic Left knee infection. [...] wbc down and no fevers continue intermediate abx - crp down - [facility]. Stock 06/27/2019 PN [ ] [ ] [ ] CDS/Porcelain Turner Signature: __[email or web address] Date/Time: 06/27/2019 1458 This is a permanent part of the Medical Record Q7 2019 [facility] Updated: Electronically signed by Maureen Cornejo Conversion Global Compensation Director Cerner at 06/16/2022 8:17 PM CDT documented in this encounter Plan of Treatment Not on file documented as of this encounter Visit Diagnoses Not on filedocumented in this encounter
--- OUTSIDE RECORDS SUMMARY | 2024-08-30 07:39 | XMS_ITS | Encounter Summary ---
Author Organization [employer] ([place], [place], [place], [place]) Address [address] [place] [address] Care Team Providers Care Accounts Payable Coordinator Name Role Phone Unavailable Primary Care Provider Unavailabl e Encounter Details Date Type Department Care Team (Late st Contact Info) Description 08/20/2020 Transcribed Document [facility] [place] Family Medicine [facility] [place] [address] ProviderMariela MD [address] [place], [place] [phone] Social History Tobacco Use Types Packs/Day Years [...] Performed On: 08/20/2020 23:54 EDT by Hannah Cardoso, RN Teaching/Learning Assessment Barriers To Learning : None evident Individuals Taught : Patient Readiness to Learn : Cooperative Learning Style Preferences Patient : Printed materials, Verbal explanation Learning Style Preferences Family : Printed materials, Verbal explanation Hannah Cardoso, RN - 08/21/2020 4:11 EDT documented in this encounter Plan of Treatment Not on file documented as of this encounter Visit Diagnoses Not on filedocumented in this encounter
--- OUTSIDE RECORDS SUMMARY | 2024-08-30 07:39 | XMS_ITS | Encounter Summary ---
Author Organization [employer] ([place], [place], [place], [place]) Address [address] [place] [address] Care Team Providers Care Career Development Coordinator/Teacher Name Role Phone Unavailable Primary Care Provider Unavailabl e Encounter Details Date Type Department Care Team (Late st Contact Info) Description 08/23/2018 Transcribed Document [facility] [place] Family Medicine [facility] [place] [address] ProviderMariela MD [address] [place] [address] Social History Tobacco Use Types [...] Min Conversion Note - Mariela ProviderMD - 08/23/2018 9:50 AM CDT UM Authorization Entered On: 08/23/2018 9:51 EDT Performed On: 08/23/2018 9:50 EDT by Jett Arroyo Mkt Online Marketing Coordinator-Utilization Mgt Primary Insurance Authorization Authorization and Policy Numbers : Insurance 1 Health Plan: [facility] MEDICARE ADVANTAGE Policy Number: [id number] Authorization Number: Insurance Primary Name : [facility] medicare advantage [id number] Authorization Status-Primary : Awaiting callback Reference Number-Primary : [id number] Authorized Service Begin Date-Primary : 08/22/2018 EDT Authorization Comments-Primary : Clinicals faxed to [facility] via Min Historical Authorization Comments-Primary : No Authorization Comments Found Jett Arroyo Mkt Online Marketing Coordinator-Utilization Mgt - 08/23/2018 9:50 EDT documented in this encounter Plan of Treatment Not on file documented as of this encounter Visit Diagnoses Not on filedocumented in this encounter
--- OUTSIDE RECORDS SUMMARY | 2024-08-30 07:39 | XMS_ITS | Encounter Summary ---
Author Organization [employer] ([place], [place], [place], [place]) Address [address] [place] [address] Care Team Providers Care Administration Professional Name Role Phone Unavailable Primary Care Provider Unavailabl e Encounter Details Date Type Department Care Team (Late st Contact Info) Description 06/26/2019 Transcribed Document [facility] [place] [facility] [place] [address] ProviderMariela MD [address] [place] [address] Social History Tobacco Use Types Packs/Day Years [...] On: 06/26/2019 13:03 EDT by Anika Clark bottle inspector Documentation Patient Disposition, General : Discharge Discharge [...] - 06/26/2019 13:03 EDT Electronically signed by Chantal [facility] Conversion Plant Safety Leader Cerner at 06/16/2022 8:22 PM CDT documented in this encounter Plan of Treatment Not on file documented as of this encounter Visit Diagnoses Not on filedocumented in this encounter
--- OUTSIDE RECORDS SUMMARY | 2024-08-30 07:39 | XMS_ITS | Encounter Summary ---
Author Organization [employer] ([place], [place], [place], [place]) Address [address] [place] [address] Care Team Providers Care Near Eastern Archaeology Lecturer Name Role Phone Unavailable Primary Care Provider Unavailabl e Encounter Details Date Type Department Care Team (Late st Contact Info) Description 06/27/2019 Transcribed Document [facility] [place] [address] ProviderMariela MD [address] [place] [address] Social History Tobacco Use Types Packs/Day [...] MIGDALIA TOBIN PTA - 07/03/2019 12:16 EDT Senior Living Goals Mobility/Bed Mobility LTG PT Grid Goal [...] Anticipated Discharge to : Unit, rehabilitation, Unit, usp MIGDALIA TOBIN PTA - 07/03/2019 12:16 EDT [facility] PT Charges ASSISTANT DIRECTOR OF FINANCIAL AID PT Therap. Exercise 15 min-ASSISTANT DIRECTOR OF FINANCIAL AID : 1 Gait Training Each 15 Min-ASSISTANT DIRECTOR OF FINANCIAL AID : 1 MIGDALIA TOBIN PTA - 07/03/2019 12:16 EDT documented in this encounter Plan of Treatment Not on file documented as of this encounter Visit Diagnoses Not on filedocumented in this encounter
--- OUTSIDE RECORDS SUMMARY | 2024-08-30 07:39 | XMS_ITS | Encounter Summary ---
Author Organization [employer] ([place], [place], [place], [place]) Address [address] [place] [address] Care Team Providers Care Cage Maker Name Role Phone Unavailable Primary Care Provider Unavailabl e Encounter Details Date Type Department Care Team (Late st Contact Info) Description 08/20/2020 Transcribed Document [facility] [place] Family Medicine [facility] [place] [address] ProviderMariela MD [address] [place] [address] Social History Tobacco Use Types Packs/Day [...] Conversion Note - Mariela ProviderMD - 08/20/2020 8:06 PM CDT DATE OF PROCEDURE: 08/20/2020 SURGEON: Riaz Saenz MD PREOPERATIVE DIAGNOSIS: Chronic failure, right patellar tendon, status post total knee arthroplasty. POSTOPERATIVE DIAGNOSIS: Chronic failure, right patellar tendon, status post total knee arthroplasty. PROCEDURE: Right total knee arthroplasty revision with extensor mechanism reconstruction with Marlex mesh. ANESTHESIA: Femoral nerve block, IPACK block, general. STEWARD/STEWARDESS TOURIST CLASS: Brady. ESTIMATED BLOOD LOSS: Minimal. TOURNIQUET TIME: [...] the cast comes off at 3 months. /[id number] Riaz Saenz MD CC/AQ / CC / MODL /[id number] documented in this encounter Plan of Treatment Not on file documented as of this encounter Visit Diagnoses Not on filedocumented in this encounter
--- OUTSIDE RECORDS SUMMARY | 2024-08-30 07:39 | XMS_ITS | Encounter Summary ---
Author Organization [employer] ([place], [place], [place], [place]) Address [address] [place] [address] Care Team Providers Care Newspaper Deliverer Name Role Phone Unavailable Primary Care Provider Unavailabl e Encounter Details Date Type Department Care Team (Late st Contact Info) Description 08/19/2020 Transcribed Document [facility] [place] Family Medicine [facility] [place] [address] ProviderMariela MD [address] [place] [address] Social History Tobacco Use Types [...] Conversion Note - Mariela ProviderMD - 08/19/2020 3:14 PM CDT UM Authorization Entered On: 08/19/2020 15:15 EDT Performed On: 08/19/2020 15:14 EDT by TIESHA AQUINO RN-Utilization Review Primary Insurance Authorization Authorization and Policy Numbers : Insurance 1 Health Plan: [facility] MEDICARE ADVANTAGE Policy Number: [id number] Authorization Number: Insurance Primary Name : [facility] MEDICARE ADVANTAGE Policy Number: [id number] Authorization Status-Primary : Admit approved Reference Number-Primary : [id number] Authorization Number-Primary : [id number] Number of Days Authorized-Primary : 0 Day(s) Authorized Service Begin Date-Primary : 08/20/2020 EDT Authorized Service End Date-Primary : 08/20/2020 EDT Authorization Comments-Primary : [facility] Medicare approved per website for 1 day Historical Authorization Comments-Primary : No Authorization Comments Found TIESHA AQUINO RN-Utilization Review - 08/19/2020 15:14 EDT documented in this encounter Plan of Treatment Not on file documented as of this encounter Visit Diagnoses Not on filedocumented in this encounter
--- OUTSIDE RECORDS SUMMARY | 2024-08-30 07:39 | XMS_ITS | Encounter Summary ---
Author Organization [employer] ([place], [place], [place], [place]) Address [address] [place] [address] Care Team Providers Care Crew Leader Gluing Name Role Phone Unavailable Primary Care Provider Unavailabl e Encounter Details Date Type Department Care Team (Late st Contact Info) Description 08/25/2020 Transcribed Document [facility] [place] Family Medicine [facility] [place] [address] ProviderMariela MD [address] [place] [address] Social History Tobacco Use Types Packs/Day [...] Conversion Note - Mariela ProviderMD - 08/25/2020 5:00 AM CDT Pain [...]
--- OUTSIDE RECORDS SUMMARY | 2024-08-30 07:39 | XMS_ITS | Encounter Summary ---
Author Organization [employer] ([place], [place], [place], [place]) Address [address] [place] [address] Care Team Providers Care Sql Consultant Name Role Phone Unavailable Primary Care Provider Unavailabl e Encounter Details Date Type Department Care Team (Late st Contact Info) Description 07/11/2019 Transcribed Document [facility] [place] Family Medicine [facility] [place] [address] ProviderMariela MD [address] [place] [id number] Social History Tobacco Use Types Packs/Day Years [...] Conversion Note - Mariela Gates MD - 07/11/2019 5:54 PM CDT Patient: SOFIA GILL Age: 79 [...] 0.9% 50 mL 2 Gram, IV Piggyback, [id number] cyanocobalamin 1,000 mcg tab 5,000 mcg 5 [...] Oral, Q4H fluticasone 0.05% nasal spray 2 [place], Nostrils Both, BID magnesium hydroxide 8% liq [...] % 22.4 % Lymph # 1.61 x10(3)/uL [place] % 12.7 % HI Crockett # 0.91 K/uL Eos % 6.3 % [...]
--- OUTSIDE RECORDS SUMMARY | 2024-08-30 07:39 | XMS_ITS | Encounter Summary ---
Author Organization [employer] ([place], [place], [place], [place]) Address [address] [address] Care Team Providers Care Observation Nurse Name Role Phone Unavailable Primary Care Provider Unavailabl e Encounter Details Date Type Department Care Team (Late st Contact Info) Description 08/23/2018 Transcribed Document [facility] [place] [facility] [place] [address] ProviderMariela MD [address] [place] [address] Social History Tobacco Use Types [...] Barley. Bulgur wheat. Millet. Bran muffins. Popcorn. [place] wafer crackers. ?? Vegetables Sweet potatoes. Spinach. Kale. Artichokes. Cabbage. Broccoli. Green peas. Carrots. Squash. ?? Fruits Berries. Pears. Apples. Oranges. Avocados. Prunes and raisins. Dried figs. ?? Meats and Other Protein Sources [place], kidney, call, and soy beans. Split peas. [...] gray has 11 g of protein. ?? [place] seeds ??? 1 oz has 5.5 g [...] floor. ?? Place frequently used items in qiyl-tr-mxifq places ?? Keep electrical cables out of [...] ? Using the bathroom. ? Using household fork lift technician or toxic chemicals. ? Touching or taking [...]
--- OUTSIDE RECORDS SUMMARY | 2024-08-30 07:39 | XMS_ITS | Encounter Summary ---
Author Organization [employer] ([place], [place], [place], [place]) Address [address] [place] [address] Care Team Providers Care Belt Loop Machine Operator Name Role Phone Unavailable Primary Care Provider Unavailabl e Encounter Details Date Type Department Care Team (Late st Contact Info) Description 06/27/2019 Transcribed Document [facility] [place] [facility] [place] [address] ProviderMariela MD [address] [place] [address] Social History Tobacco Use Types Packs/Day [...] Note - Mariela Gates MD - 06/27/2019 11:14 AM CDT Patient: SOFIA GILL Age: 79 years Sex: Female : 1940 Associated Diagnoses: None Author: ARA JONES MD-INF ID Progress Note CC: Left knee pain Current antimicrobial therapy: Rocephin IV Subjective: Patient with no fevers and moved to [facility] for rehab on ongoing iv abx, some [...] 26) ALB L 2.4 (JUN 26) Micro: [facility]: 06/15 [facility] Blood cultures positive for group [...] - wbc down and no fevers continue fisher lampara net abx - crp down - needs rehab and iv abx at [facility] will follow documented in this encounter Plan of Treatment Not on file documented as of this encounter Visit Diagnoses Not on filedocumented in this encounter
--- OUTSIDE RECORDS SUMMARY | 2024-08-30 07:39 | XMS_ITS | Encounter Summary ---
Author Organization [employer] ([place], [place], [place], [place]) Address [address] [place] [address] Care Team Providers Care Processing Mgr Name Role Phone Unavailable Primary Care Provider Unavailabl e Encounter Details Date Type Department Care Team (Late st Contact Info) Description 08/25/2020 Transcribed Document [facility] [place] Family Medicine [address] [place] [address] ProviderMariela MD [address] [place] [...] 08/25/2020 5:28 EDT Electronically signed by Chantal [facility] Conversion Formal Service Waiter Min at 06/16/2022 8:28 PM CDT documented in this encounter Plan of Treatment Not on file documented as of this encounter Visit Diagnoses Not on filedocumented in this encounter
--- OUTSIDE RECORDS SUMMARY | 2024-08-30 07:39 | XMS_ITS | Encounter Summary ---
Author Organization [employer] ([place], [place], [place], [place]) Address [address] [place] [address] Care Team Providers Care Collar Worker Name Role Phone Unavailable Primary Care Provider Unavailabl e Encounter Details Date Type Department Care Team (Late st Contact Info) Description 08/20/2020 Transcribed Document [facility] [place] Family Medicine [facility] [place] [address] ProviderMariela MD [facility] [place] [address] Social History Tobacco [...]
--- OUTSIDE RECORDS SUMMARY | 2024-08-30 07:39 | XMS_ITS | Encounter Summary ---
Author Organization [employer] ([place], [place], [place], [place]) Address [address] [place] [address] Care Team Providers Care Statue Carver Name Role Phone Unavailable Primary Care Provider Unavailabl e Encounter Details Date Type Department Care Team (Late st Contact Info) Description 08/20/2020 Transcribed Document [facility] [place] [facility] [place] [address] ProviderMariela MD [address] [place] [address] Social History Tobacco Use Types [...] On: 08/21/2020 13:24 EDT by EDIN DRAKE OTR/L General Information, OT Visit Type, OT [...] A-fib , MO and lymphedema EDIN DRAKE OTR/L - 08/21/2020 13:24 EDT General Status Patient [...] Treatment Time : 32 Minute(s) EDIN DRAKE OTR/L - 08/21/2020 13:24 EDT History and Environment, [...] DRAKE OTR/L - 08/21/2020 13:24 EDT] ) EDIN DRAKE OTR/L - 08/21/2020 13:24 EDT Functional MobilityComment : pt tolerates EOB sitting for ~4 minutes with RLE supported and requesting back to bed as she is feeling weak. min assist for seated balance at times , pt attempts to use leg braker passenger train to assist RLE to EOB and cues [...] EDIN DRAKE OTR/L - 08/21/2020 13:24 EDT Single Pointed Operator Goals, OT Other LTG Grid Goal #1 [...] : Initial goal Initial goal Initial goal VIDAL, EDIN OTR/L - 08/21/2020 13:24 EDT VIDAL EDIN OTR/Bartolo - 08/21/2020 13:24 EDT VIDAL EDIN OTR/L - 08/21/2020 13:24 EDT VIDAL EDIN [...] OT 3x/week for 7 days EDIN DRAKE OTJake/Bartolo - 08/21/2020 13:24 EDT Pain Assessment Pain [...] Eval Moderate Complexity : 1 EDIN DRAKE OTJake/L - 08/21/2020 13:24 EDT documented in this encounter Plan of Treatment Not on file documented as of this encounter Visit Diagnoses Not on filedocumented in this encounter
--- OUTSIDE RECORDS SUMMARY | 2024-08-30 07:39 | XMS_ITS | Encounter Summary ---
Author Organization [employer] ([place], [place], [place], [place]) Address [address] [place] [address] Care Team Providers Care Tire Builder Heavy Service Name Role Phone Unavailable Primary Care Provider Unavailabl e Encounter Details Date Type Department Care Team (Late st Contact Info) Description 08/24/2020 Transcribed Document [facility] [place] Medicine Counts include 234 beds at the [facility] [place] [address] ProviderMariela MD [address] [place] [address] Social History Tobacco Use Types Packs/Day [...] Note - Mariela ProviderMD - 08/24/2020 10:00 PM CDT Pain [...] form. Electronically signed by Maureen Cornejo Conversion Transit Proof Machine Operator Cerner at 06/16/2022 8:27 PM CDT documented in this encounter Plan of Treatment Not on file documented as of this encounter Visit Diagnoses Not on filedocumented in this encounter
--- OUTSIDE RECORDS SUMMARY | 2024-08-30 07:39 | XMS_ITS | Encounter Summary ---
Author Organization [employer] ([place], [place], [place], [place]) Address [address] [place] [address] Care Team Providers Care Licensed Staff Mft Name Role Phone Unavailable Primary Care Provider Unavailabl e Encounter Details Date Type Department Care Team (Late st Contact Info) Description 08/22/2018 Transcribed Document [facility] Family Medicine [facility] [place] [address] ProviderMariela MD [place] [address] Social History Tobacco Use Types [...] Mariela ProviderMD - 08/22/2018 9:14 AM CDT [facility] Main OR IntraOp Summary Primary Physician: NIMO EPPS MD-ORT Finalized Date/Time: 08/22/18 11:15:32 Pt. Name: SOFIA GILL Eufemia /Sex: 1940 Female Med Rec #: [id number] Physician: NIMO EPPS MD-ORT Financial #: [id number] Pt. Type: O Room/Bed: Admit/Disch: 08/22/18 04:51:00 - Institution: [facility] IntraOp Case Attendance Entry 1 Entry 2 Entry 3 Case Attendee NIMO EPPS STULL, KELSI A, NA Warner, Missy M Rn RENEEORT Role Performed Surgeon/Proceduralist, PICKET LABOR UNION/Nurse Stave Bolt Equalizer Supervisor Carpenters, First First Time In 08/22/18 09:11:00 08/22/18 08:38:00 08/22/18 08:38:00 Time Out 08/22/18 10:16:00 08/22/18 11:06:00 08/22/18 11:06:00 Procedure Knee Total Joint Knee Total Joint Knee Total Joint Replacement Replacement Replacement Other Attendee Superficial Wound Closed By: Last Modified By: Yessi Ceron, Yessi Manrique, Yessi Manrique, Laxmi 08/22/18 11:15:02 08/22/18 11:15:02 08/22/18 11:15:02 Entry 4 Entry 5 Entry 6 Case Attendee Carlos Gonzalez, OMAR Chery, ESTEBAN Role Performed Scrub, First Scrub, Second Cant Hooker, First Time In 08/22/18 08:38:00 08/22/18 08:38:00 [...] SOLOMON MCCRACKEN PA-C Role Performed Vendor Physician assistant sales center manager Time In 08/22/18 08:38:00 08/22/18 09:38:00 Time Out 08/22/18 11:06:00 08/22/18 11:06:00 Procedure Knee Total Joint Knee Total Joint Replacement Replacement Other Attendee jim morales Superficial Wound Closed By: Last Modified By: Yessi Ceron, Yessi Manrique, Laxmi 08/22/18 11:15:26 08/22/18 11:15:02 SJE IntraOp Case Attendance Audit 08/22/18 11:15:26 Editing Computer Publisher: [id number] Modifier: [id number] <+> Role Performed 7 <*> Procedure Knee Total Joint Replacement 08/22/18 11:15:02 Editing Computer Publisher: [id number] Modifier: [id number] 1 <*> Procedure Knee Total Joint Replacement [...] Procedure Knee Total Joint Replacement 08/22/18 10:25:09 Editing Computer Publisher: [id number] Modifier: [id number] 1 <+> Time Out 1 <*> Procedure Knee Total Joint Replacement 5 <+> Time Out 5 <*> Procedure Knee Total Joint Replacement 08/22/18 09:38:47 Editing Computer Publisher: [id number] Modifier: [id number] 1 <*> Procedure Knee Total Joint Replacement 8 <*> Time In 08/22/18 08:38:00 8 <*> Procedure Knee Total Joint Replacement 08/22/18 09:33:38 Editing Computer Publisher: [id number] Modifier: [id number] 1 <*> Case Attendee NIMO EPPS MD-ORT 1 <*> Role Performed Surgeon/Proceduralist, First 1 <*> Time In 08/22/18 09:11:00 1 <*> Procedure Knee Total Joint Replacement 2 <*> Case Attendee ATTILA COMER, NA 2 <*> Role Performed PICKET LABOR UNION/Nurse Stave Bolt Equalizer 2 <*> Time In 08/22/18 08:38:00 2 <*> Procedure Knee Total Joint Replacement 3 <*> Case Attendee Yessi Ceron, Rn 3 <*> Role Performed Supervisor Carpenters, First 3 <*> Time In 08/22/18 08:38:00 [...] Replacement 6 <*> Case Attendee OMAR JIMENEZ, CSA 6 <*> Role Performed Cant Hooker, First 6 <*> Time In 08/22/18 08:38:00 6 <*> Procedure Knee Total Joint Replacement Entry 7 was deleted. Higher numbered entries shifted one position to fill the gap. <-> 7 Case Attendee JEANNE CASEY PAC <-> 7 Role Performed Physician assistant sales center manager <-> 7 Time In 08/22/18 08:38:00 <-> 7 Procedure Knee Total Joint Replacement <-> 7 Other Attendee 8 <*> Case Attendee OTHER, ATTENDEE #1 8 <+> Role Performed 8 <*> Time In 08/22/18 08:38:00 8 <*> Procedure Knee Total Joint Replacement 8 <-> Other Attendee jimreji morales 08/22/18 09:33:18 Editing Computer Publisher: [id number] Modifier: [id number] 1 <*> Procedure Knee Total Joint Replacement [...] Procedure Knee Total Joint Replacement 08/22/18 09:32:29 Editing Computer Publisher: [id number] Modifier: [id number] <+> 9 Case Attendee <+> 9 Role Performed <+> 9 Procedure 08/22/18 09:13:27 Editing Computer Publisher: [id number] Modifier: [id number] 1 <+> Time In 1 <*> Procedure [...] SJE IntraOp Case Times Audit 08/22/18 11:05:29 Editing Computer Publisher: [id number] Modifier: [id number] <+> 1 Out Room Time <+> 1 Stop Time <+> 1 Stop Time 08/22/18 09:32:54 Editing Computer Publisher: [id number] Modifier: [id number] <+> 1 Start Time SJE IntraOp Cautery [...] 09:33:06 SJE IntraOp Communication Audit 08/22/18 09:33:06 Editing Computer Publisher: [id number] Modifier: [id number] <+> 1 Date and Time SJE IntraOp [...] SJE IntraOp Counts Verification Audit 08/22/18 10:17:11 Editing Computer Publisher: [id number] Modifier: [id number] 2 <*> Procedure Knee Total Joint Replacement [...] SJE IntraOp Counts Final Audit 08/22/18 10:25:21 Editing Computer Publisher: [id number] Modifier: [id number] 1 <*> Procedure Knee Total Joint Replacement 1 <+> Count Performed By (Scrub) 1 <+> Count Performed By (RN) SJReji IntraOp Cultures and Spec Summary Entry 1 [...] IntraOp Dressing and Packing Audit 08/22/18 09:32:44 Editing Computer Publisher: [id number] Modifier: [id number] 1 <*> Applied By JEANNE CASEY PAC E IntraOp Fire Risk Assessment Entry 1 Fire [...] IntraOp Fire Risk Assessment Audit 08/22/18 09:11:50 Editing Computer Publisher: [id number] Modifier: [id number] <+> 1 Fire Risk Assessment Verified Date/Time SJE IntraOp General Case Engineering Group Leader 1 Case Information OR OR 02 [facility] Case Level 1 Room Verified Yes Wound Class I - Clean Specialty SN Orthopedic Anesthesia Type General ASA Class 3 Diagnosis Preop Diagnosis SEVERE DJD Postop Same As Preop Yes Postop Diagnosis SEVERE DJD Last Modified By: Yessi Ceron Rn 08/22/18 09:12:03 E IntraOp General Case Data Audit 08/22/18 09:12:03 Editing Computer Publisher: [id number] Modifier: [id number] <+> 1 Room Verified 08/22/18 09:11:58 Editing Computer Publisher: [id number] Modifier: [id number] <+> 1 ASA Class SJE IntraOp Implant Log Entry 1 Entry 2 Entry 3 Type Implant (Synthetic) Implant (Synthetic) Implant (Synthetic) Implant Log Implant Type Bone Cement Hardware Hardware Tissue Implant Type Implant CEMENT BONE COBALT HV COMP FEM CR INTLOK VGRD TY TIB I-BEAM FIX Identification [id number] [id number] Description Implant Quantity 2 1 1 Implant Site RIGHT KNEE RIGHT KNEE RIGHT KNEE Implant Identification Model Number Implant Identification Serial Number Implant [id number] Identification Lot Number Implant Dj Surg:[employer] Bi[employer] Biomet Identification Med:Bobbi Traffic Workforce Representative Name: Implant [id number] Identification Catalog Number Implant Size Implant Has an Yes Yes Yes Expiration Date Implant Expiration 08/25/19 06/27/28 05/23/28 Date Wasted Radioactive Material Time Implanted Tissue Implant Continue for Tissue Implant Documentation Tissue Identification Number Graft Prep Per Traffic Workforce Representative Instructions: Tissue Preparation Method: Reconstitution Solution: Reconstitution Solution Lot Number Reconstitution Solution Expiration Date: Thawing Solution Thawing Solution Lot Number Thawing Solution Expiration Date Preparation Materials, Other Preparation Materials, Other Lot Number Preparation Materials, Other Expiration Date Tissue Prepared/Processed By Traffic Workforce Representative Paperwork Completed Implant Type Comment Last Modified By: Yessi Ceron Rn Warner, Missy M, Rn Warner, Missy M, Rn 08/22/18 10:16:57 08/22/18 10:16:57 08/22/18 10:16:57 Entry 4 Entry 5 Type Implant (Synthetic) Implant (Synthetic) Implant Log Implant Type Hardware Hardware Tissue Implant Type Implant PATELLA THIN BEAR VAN TIB DCM Identification [id number] Description Implant Quantity 1 1 Implant Site RIGHT KNEE RIGHT KNEE Implant Identification Model Number Implant Identification Serial Number Implant [id number] Identification Lot Number Implant Biomet Biomet Identification Traffic Workforce Representative Name: Implant [id number] Identification Catalog Number Implant Size Implant Has an Yes Yes Expiration Date Implant Expiration 07/24/23 06/12/23 Date Wasted Radioactive Material Time Implanted Tissue Implant Continue for Tissue Implant Documentation Tissue Identification Number Graft Prep Per Traffic Workforce Representative Instructions: Tissue Preparation Method: Reconstitution Solution: Reconstitution Solution Lot Number Reconstitution Solution Expiration Date: Thawing Solution Thawing Solution Lot Number Thawing Solution Expiration Date Preparation Materials, Other Preparation Materials, Other Lot Number Preparation Materials, Other Expiration Date Tissue Prepared/Processed By Traffic Workforce Representative Paperwork Completed Implant Type Comment Last Modified By: Yessi Ceron Rn Warner, Missy M, Rn 08/22/18 10:16:57 08/22/18 10:16:57 [facility] IntraOp Implant Log Audit 08/22/18 10:16:57 Editing Computer Publisher: [id number] Modifier: [id number] <+> 1 Implant Identification Description <+> 1 Implant Identification Lot Number <+> 1 Implant Identification Traffic Workforce Representative Name: <+> 1 Implant Expiration Date <+> 1 Implant Identification Catalog Number <+> 2 Implant Identification Description <+> 2 Implant Identification Lot Number <+> 2 Implant Identification Traffic Workforce Representative Name: <+> 2 Implant Expiration Date <+> 2 Implant Identification Catalog Number <+> 3 Implant Identification Description <+> 3 Implant Identification Lot Number <+> 3 Implant Identification Traffic Workforce Representative Name: <+> 3 Implant Expiration Date <+> 3 Implant Identification Catalog Number <+> 4 Implant Identification Description <+> 4 Implant Identification Lot Number <+> 4 Implant Identification Traffic Workforce Representative Name: <+> 4 Implant Expiration Date <+> 4 Implant Identification Catalog Number <+> 5 Implant Identification Description <+> 5 Implant Identification Lot Number <+> 5 Implant Identification Traffic Workforce Representative Name: <+> 5 Implant Expiration Date <+> [...] hydrogen peroxide 3% - 1000MG/10 ML COCKTAIL-MICH [id number] Combo Med List Time Administered Route of TOPICALW/ 25ML NACL Administration Dose Dose 1000 Unit of Measure mg Volume 10 ML Administered By NIMO EPPS MD-ORT Procedure Irrigation Irrigant Volume In Irrigant Volume Out Last Modified By: Yessi Ceron Rn Warner, Missy M, Rn Yessi Ceron Rn 08/22/18 07:16:28 08/22/18 07:16:28 08/22/18 07:16:28 Entry 4 Medication/Irrigant vancomycin 1Gm vial - [id number] Combo Med List Time Administered Route of [...] OMAR JIMENEZ CSA, Yessi Ceron, Laxmi, ATTILA COMER, MYRIAM Position Verified Positioning Yes Verified by Anesthesia [...] SJE IntraOp Skin Prep Audit 08/22/18 09:11:45 Editing Computer Publisher: [id number] Modifier: [id number] 1 <*> Procedure Knee Total Joint Replacement [...] SJE IntraOp Surgical Procedures Audit 08/22/18 11:15:07 Editing Computer Publisher: [id number] Modifier: [id number] <+> 1 Stop 08/22/18 10:25:37 Editing Computer Publisher: [id number] Modifier: [id number] <+> 1 Start SJE IntraOp Temp Regulation Devices Entry 1 Temp Regulation Temperature Forced Air Warming Regulation Device device Temperature Upper body Regulation Site Temperature Device 43 Setting Temperature ATTILA COMER A, NA Regulation Device Applied by Last [...] SJE IntraOp Time Out Audit 08/22/18 09:12:12 Editing Computer Publisher: [id number] Modifier: [id number] 1 <+> Time Out Pause Time 1 [...] 10:57:10 SJE IntraOp Tourniquet Audit 08/22/18 10:57:10 Editing Computer Publisher: [id number] Modifier: [id number] <+> 1 Stop Time 08/22/18 09:33:26 Editing Computer Publisher: [id number] Modifier: [id number] 1 <*> Removed By JEANNE CASEY PAC 08/22/18 09:13:11 Editing Computer Publisher: [id number] Modifier: [id number] <+> 1 Start Time Case Comments <None> Finalized By: Yessi Ceron Rn Document Signatures Signed By: Yessi Ceron Rn 08/22/18 11:15 documented in this encounter Plan of Treatment Not on file documented as of this encounter Visit Diagnoses Not on filedocumented in this encounter
--- OUTSIDE RECORDS SUMMARY | 2024-08-30 07:39 | XMS_ITS | Encounter Summary ---
Author Organization [employer] ([place], [place], [place], [place]) Address [address] [place] [address] Care Team Providers Care Data Entry Assistant Name Role Phone Unavailable Primary Care Provider Unavailabl e Encounter Details Date Type Department Care Team (Late st Contact Info) Description 07/12/2019 Transcribed Document [facility] Family Medicine [place] [address] ProviderMariela MD [address] [place], [place] [id number] Social History Tobacco Use Types Packs/Day Years [...] Management Note : 07/12/2019 Fax received from [facility] with approval for LTAC services with a request for updated discharge plans and clinical info to support needs if not discharged. Auth#[id number]. Clinical review or discharge summary to be faxed by 07/17/2019. Care Management Note Report : YOANNA ARAUJO RN - 07/12/19 08:39:48 Yoanna Araujo 07/12/2019 0830 - faxed clinical review the [facility] at [phone] to request approval for extended ltac services. Auth#[id number], awaiting approval. YOANNA ARAUJO RN - 06/29/19 [...] health and she has been to the [facility] in the past. She has the following equipment at home: wheel chair, walker, cane and shower chair. Her discharge plan is to go to rehab prior to returning home. PCP: Flavia MARQUEZ [address] [id number] Chief Librarian Branch Or Department: Dr. Shemar Barger [address] [address] [address] Clemente Del Rio MD - Rheumatology - [address] [place] [address] Preferences: Home Health: [facility]: no preferences DME: [facility] - [address], [place] [id number] [facility] no preferences Will continue to monitor patient for anticipated discharge needs YOANNA ARAUJO RN - 06/29/19 08:30:20 Yoanna Araujo 06/29/2019 0830 received fax from [facility] with approval for extended ltac coverage with next clinical review due on 07/12/2019. Auth#[id number]. Will continue to follow for anticipated discharge needs. YOANNA ARAUJO RN - 06/28/19 08:35:06 Yoanna Araujo 06/28/2019 0830 Faxed clinical review to [facility] at to request approval for extended Ltac services. Auth#[id number]. Pending Approval. Documentation Status Complete : СВЕТЛАНА Dick - 07/12/2019 12:15 EDT documented in this encounter Plan of Treatment Not on file documented as of this encounter Visit Diagnoses Not on filedocumented in this encounter
--- OUTSIDE RECORDS SUMMARY | 2024-08-30 07:39 | XMS_ITS | Encounter Summary ---
Author Organization [employer] ([place], [place], [place], [place]) Address [address] [place] [address] Care Team Providers Care Field Laborer Name Role Phone Unavailable Primary Care Provider Unavailabl e Encounter Details Date Type Department Care Team (Late st Contact Info) Description 08/20/2020 Transcribed Document [facility] Family Medicine [address] [place] [address] ProviderMariela MD [address] [place] [address] Social History Tobacco Use Types [...] 08/20/2020 15:22 EDT Electronically signed by Chantal [facility] Conversion Sports Equipment Repairer Cerner at 06/16/2022 8:26 PM CDT documented in this encounter Plan of Treatment Not on file documented as of this encounter Visit Diagnoses Not on filedocumented in this encounter
--- OUTSIDE RECORDS SUMMARY | 2024-08-30 07:39 | XMS_ITS | Encounter Summary ---
Author Organization [employer] ([place], [place], [place], [place]) Address [address] [place] [address] Care Team Providers Care Design Printer Balloon Name Role Phone Unavailable Primary Care Provider Unavailabl e Encounter Details Date Type Department Care Team (Late st Contact Info) Description 07/12/2019 Transcribed Document [facility] Family Medicine [address] [place] [address] ProviderMariela MD [address] [place] [id number] Social History Tobacco Use Types Packs/Day Years [...] Bibi Gallagher RN - 07/12/2019 4:38 EDT Electronically signed by Chantal [facility] Conversion Telecommunications Engineer Min at 06/16/2022 8:02 PM CDT documented in this encounter Plan of Treatment Not on file documented as of this encounter Visit Diagnoses Not on filedocumented in this encounter
--- OUTSIDE RECORDS SUMMARY | 2024-08-30 07:39 | XMS_ITS | Encounter Summary ---
Author Organization [employer] ([place], [place], [place], [place]) Address [address] [place] [address] Care Team Providers Care Heavy Equipment Diesel Mechanic Name Role Phone Unavailable Primary Care Provider Unavailabl e Encounter Details Date Type Department Care Team (Late st Contact Info) Description 08/22/2018 Transcribed Document [facility] Family Medicine [facility] [place] [address] ProviderMariela MD [address] [place] [address] Social [...] Conversion Note - Mariela ProviderMD - 08/22/2018 9:00 PM CDT Pain [...]
--- OUTSIDE RECORDS SUMMARY | 2024-08-30 07:39 | XMS_ITS | Encounter Summary ---
Author Organization [employer] ([place], [place], [place], [place]) Address [address] [place] [address] Care Team Providers Care Services Host Name Role Phone Unavailable Primary Care Provider Unavailabl e Encounter Details Date Type Department Care Team (Late st Contact Info) Description 06/26/2019 Transcribed Document [facility] Family Medicine On license of [facility] [place] [address] ProviderMariela MD On license of [facility] [place] [address] Social History Tobacco Use [...] Conversion Note - Mariela ProviderMD - 06/26/2019 1:38 PM CDT Patient: [...] (JUN 25 12:00) SpO2 99 (JUN 25 12:) L 81 (JUN 25 09:55) 100 (JUN [...] 109 (JUN 24) 109 (JUN 23) 103 (MAY 24) CO2 28 (JUN 25) 24 (JUN 24) [...] (JUN 22) L 1.4 (JUN 21) Micro: [facility]: 06/15 [facility] Blood cultures [...] - wbc down and no fevers continue terminal supervisor abx -Monitor H&H and LTAC will monitor UM: IV antibiotics and LTAC documented in this encounter Plan of Treatment Not on file documented as of this encounter Visit Diagnoses Not on filedocumented in this encounter
--- OUTSIDE RECORDS SUMMARY | 2024-08-30 07:40 | XMS_ITS | Encounter Summary ---
Author Organization [employer] ([place], [place], [place], [place]) Address [address] [place] [address] Care Team Providers Care Sports Equipment Repairer Name Role Phone Unavailable Primary Care Provider Unavailabl e Encounter Details Date Type Department Care Team (Late st Contact Info) Description 06/19/2019 Transcribed Document [facility] Family Medicine [facility] [place] [address] ProviderMariela MD [address] [place] [address] Social History Tobacco Use Types Packs/Day [...] Conversion Note - Mariela Gates MD - 06/19/2019 2:08 PM CDT Patient: SOFIA [...] 95 (JUN 18 11:23) L 93 (JUN 17:32) 99 (JUN 17 22:53) Exam: Gen: Alert, [...] 2.0 (JUN 16) Micro: [facility]: 06/15 [facility] Blood cultures positive for group [...] with severe sepsis with group B strep documented in this encounter Plan of Treatment Not on file documented as of this encounter Visit Diagnoses Not on filedocumented in this encounter
--- OUTSIDE RECORDS SUMMARY | 2024-08-30 07:40 | XMS_ITS | Encounter Summary ---
Author Organization [employer] ([place], [place], [place], [place]) Address [address] [place] [address] Care Team Providers Care Reheat Furnace Operator Name Role Phone Unavailable Primary Care Provider Unavailabl e Encounter Details Date Type Department Care Team (Late st Contact Info) Description 06/19/2019 Transcribed Document [facility] Family Medicine [facility] [place] [address] ProviderMariela MD [address] [place] [address] Social History Tobacco Use Types [...] Note - Mariela Gates MD - 06/19/2019 10:24 PM CDT Patient: SOFIA [...] 0.9% 50 mL 2 Gram, IV Piggyback, [id number] clindamycin/D5w 600 mg 50 mL, IV Piggyback, [...] nasal spray 2 [place], Nostrils Both, BID gabapentin 300 mg cap [...] % LOW Lymph # 1.12 K/uL LOW Grainger % 6.6 % Grainger # 1.64 K/uL HI Eos % 0.1 [...]
--- OUTSIDE RECORDS SUMMARY | 2024-08-30 07:40 | XMS_ITS | Encounter Summary ---
Author Organization [employer] ([place], [place], [place], [place]) Address [address] [place] [address] Care Team Providers Care Utilization Supervisor Name Role Phone Unavailable Primary Care Provider Unavailabl e Encounter Details Date Type Department Care Team (Late st Contact Info) Description 08/23/2018 Transcribed Document [facility] [place] [facility] [place] [address] ProviderMariela MD [address] [place] [address] Social History Tobacco Use Types Packs/Day [...] Conversion Note - Mariela ProviderMD - 08/23/2018 3:00 PM CDT Pain [...]
--- OUTSIDE RECORDS SUMMARY | 2024-08-30 07:40 | XMS_ITS | Encounter Summary ---
Author Organization [employer] ([place], [place], [place], [place]) Address [address] [place] [address] Care Team Providers Care Ornamental Metal Fabricator Apprentice Name Role Phone Unavailable Primary Care Provider Unavailabl e Encounter Details Date Type Department Care Team (Late st Contact Info) Description 06/30/2019 Transcribed Document [facility] Family Medicine [facility] [place] [address] ProviderMariela MD [address] [place] [address] Social History Tobacco Use Types Packs/Day [...] Conversion Note - Mariela Gates MD - 06/30/2019 5:41 PM CDT Patient: SOFIA GILL Age: 79 [...] that oxycodone is not helping her pain ???[place] was added to Nucynta Review of Systems [...] 0.9% 50 mL 2 Gram, IV Piggyback, [id number] cyanocobalamin 1,000 mcg tab 5,000 mcg 5 [...] fluticasone 0.05% nasal spray 100 mcg 2 [place], Nostrils Both, BID magnesium hydroxide 8% liq [...] Stress ulcer prophylaxis. Will switch patient to [place] one Nucynta control her pain. documented in this encounter Plan of Treatment Not on file documented as of this encounter Visit Diagnoses Not on filedocumented in this encounter
--- OUTSIDE RECORDS SUMMARY | 2024-08-30 07:40 | XMS_ITS | Encounter Summary ---
Author Organization [employer] ([place], [place], [place], [place]) Address [address] [place] [address] Care Team Providers Care Manager Family Name Role Phone Unavailable Primary Care Provider Unavailabl e Encounter Details Date Type Department Care Team (Late st Contact Info) Description 07/14/2019 Transcribed Document [facility] [place] Medicine [facility] [place] [address] ProviderMariela MD [address] [place] [address] Social History Tobacco Use Types Packs/Day Years [...] Historical ProviderMD - 07/14/2019 2:00 AM CDT Sales Broker Details Entered On: 07/14/2019 7:20 EDT Performed [...] Georgina Olivo RN - 07/14/2019 7:20 EDT Electronically signed by Maureen Cornejo Conversion Oil Burner Servicer And Installer Cerner at 06/16/2022 8:14 PM CDT documented in this encounter Plan of Treatment Not on file documented as of this encounter Visit Diagnoses Not on filedocumented in this encounter
--- OUTSIDE RECORDS SUMMARY | 2024-08-30 07:40 | XMS_ITS | Encounter Summary ---
Author Organization [employer] ([place], [place], [place], [place]) Address [address] [place] [address] Care Team Providers Care Glass Bulb Machine Adjuster Name Role Phone Unavailable Primary Care Provider Unavailabl e Encounter Details Date Type Department Care Team (Late st Contact Info) Description 07/04/2019 Transcribed Document [facility] [place] [address] [place] [address] ProviderMariela MD [address] [place], [place] [phone] Social History Tobacco Use Types Packs/Day Years [...] EDT Performed On: 07/04/2019 5:00 EDT by iBbi Gallagher RN Chart Check Powerplans Initiated/Discontinued as Appropriate : Yes All Active Orders Reviewed : Yes Bibi Gallagher RN - 07/04/2019 3:10 EDT Electronically signed by Chantal [facility] Conversion Highway Maintenance Supervisor Min at 06/16/2022 8:23 PM CDT documented in this encounter Plan of Treatment Not on file documented as of this encounter Visit Diagnoses Not on filedocumented in this encounter
--- OUTSIDE RECORDS SUMMARY | 2024-08-30 07:40 | XMS_ITS | Encounter Summary ---
Author Organization [employer] ([place], [place], [place], [place]) Address [address] [place] [address] Care Team Providers Care Coarse Wire Drawer Name Role Phone Unavailable Primary Care Provider Unavailabl e Encounter Details Date Type Department Care Team (Late st Contact Info) Description 08/20/2020 Transcribed Document [facility] [place] [facility] [place] [address] ProviderMariela MD [facility] [place] [address] Social History Tobacco Use Types [...] Conversion Note - Mariela ProviderMD - 08/20/2020 2:56 PM CDT Procedural Documentation Entered On: 08/20/2020 14:59 EDT Performed On: 08/20/2020 14:56 EDT by THIERRY GOODRICH shuttler Documentation Time Out Pause Time : 08/20/2020 [...] Procedure Case Attendee Role 3 : RN Business Planning Manager Procedure Case Attendee 3 : THIERRY GOODRICH RN Procedure Case Attendee Role 4 : Observer Procedure Case Attendee 4 : Bridget Jauregui RN ELDER, JEAN M RN - 08/20/2020 14:56 EDT documented in this encounter Plan of Treatment Not on file documented as of this encounter Visit Diagnoses Not on filedocumented in this encounter
--- OUTSIDE RECORDS SUMMARY | 2024-08-30 07:40 | XMS_ITS | Encounter Summary ---
Author Organization [employer] ([place], [place], [place], [place]) Address [address] [place] [address] Care Team Providers Care Tool Sharpener Name Role Phone Unavailable Primary Care Provider Unavailabl e Encounter Details Date Type Department Care Team (Late st Contact Info) Description 08/23/2018 Transcribed Document [facility] [place] [facility] [place] [address] ProviderMariela MD [address] [place] [address] Social History Tobacco Use Types Packs/Day [...] Conversion Note - Mariela ProviderMD - 08/23/2018 7:14 AM CDT Patient: SOFAI BARLOW Age: 78 Years Sex: Female : [...] Screen (Tube) Negative ABSC 08/22/2018 08:18 EDT Electronically signed by Maureen Cornejo Conversion Fiberglass Dowel Drawing Operator Cerner at 06/16/2022 8:23 PM CDT documented in this encounter Plan of Treatment Not on file documented as of this encounter Visit Diagnoses Not on filedocumented in this encounter
--- OUTSIDE RECORDS SUMMARY | 2024-08-30 07:40 | XMS_ITS | Encounter Summary ---
Author Organization [employer] ([place], [place], [place], [place]) Address [address] [place] [address] Care Team Providers Care Bb Shot Packer Name Role Phone Unavailable Primary Care Provider Unavailabl e Encounter Details Date Type Department Care Team (Late st Contact Info) Description 08/23/2018 Transcribed Document [facility] [place] [facility] [place] [address] ProviderMariela MD [address] [place] [address] Social History Tobacco Use Types Packs/Day [...] Vianca Morgan RN - 08/23/2018 11:44 EDT Electronically signed by Chantal [facility] Conversion Production Artist Cerner at 06/16/2022 8:15 PM CDT documented in this encounter Plan of Treatment Not on file documented as of this encounter Visit Diagnoses Not on filedocumented in this encounter
--- OUTSIDE RECORDS SUMMARY | 2024-08-30 07:40 | XMS_ITS | Encounter Summary ---
Author Organization [employer] ([place], [place], [place], [place]) Address [address] [place] [address] Care Team Providers Care Religious Education Director Name Role Phone Unavailable Primary Care Provider Unavailabl e Encounter Details Date Type Department Care Team (Late st Contact Info) Description 08/20/2020 Transcribed Document [facility] [place] Family Medicine [facility] [place] [address] ProviderMariela MD [address] [place] [address] Social History Tobacco Use Types [...] Performed On: 08/20/2020 20:23 EDT by Hannah Cardoso, RN Teaching/Learning Assessment [...]
--- OUTSIDE RECORDS SUMMARY | 2024-08-30 07:40 | XMS_ITS | Encounter Summary ---
Author Organization [employer] ([place], [place], [place], [place]) Address [address] [place] [address] Care Team Providers Care Skein Inspector Name Role Phone Unavailable Primary Care Provider Unavailabl e Encounter Details Date Type Department Care Team (Late st Contact Info) Description 07/05/2019 Transcribed Document [facility] [place] [address] [place] [address] ProviderMariela MD [address] [place], [place] [phone] Social History Tobacco Use Types Packs/Day Years [...] Bibi Gallagher RN - 07/05/2019 4:03 EDT Electronically signed by Chantal [facility] Conversion Gallery Director Min at 06/16/2022 8:13 PM CDT documented in this encounter Plan of Treatment Not on file documented as of this encounter Visit Diagnoses Not on filedocumented in this encounter
--- OUTSIDE RECORDS SUMMARY | 2024-08-30 07:40 | XMS_ITS | Encounter Summary ---
Author Organization [employer] ([place], [place], [place], [place]) Address [address] [place] [address] Care Team Providers Care Scout Executive Name Role Phone Unavailable Primary Care Provider Unavailabl e Encounter Details Date Type Department Care Team (Late st Contact Info) Description 08/23/2018 Transcribed Document [facility] [place] [facility] [place] [address] ProviderMariela MD [address] [place] [phone] Social History Tobacco Use Types Packs/Day Years [...]
--- OUTSIDE RECORDS SUMMARY | 2024-08-30 07:40 | XMS_ITS | Encounter Summary ---
Author Organization [employer] ([place], [place], [place], [place]) Address [address] [place] [address] Care Team Providers Care Bowling Alley Refinisher Name Role Phone Unavailable Primary Care Provider Unavailabl e Encounter Details Date Type Department Care Team (Late st Contact Info) Description 07/04/2019 Transcribed Document [facility] [place] Medicine [facility] [place] [address] ProviderMariela MD [address] [place] [phone] Social History Tobacco Use Types Packs/Day Years [...] Conversion Note - Mariela Gates MD - 07/04/2019 4:29 PM CDT Patient: SOFIA [...] 0.9% 50 mL 2 Gram, IV Piggyback, [id number] cyanocobalamin 1,000 mcg tab 5,000 mcg 5 [...] fluticasone 0.05% nasal spray 100 mcg 2 [place], Nostrils Both, BID magnesium hydroxide 8% liq [...] 15.8 % LOW Lymph # 1.25 x10(3)/uL [place] % 11.3 % HI [place] # 0.89 K/uL Eos % 2.3 % [...] % 22.6 % Lymph # 1.63 x10(3)/uL [place] % 13.7 % HI [place] # 0.99 K/uL Eos % 2.9 % [...]
--- OUTSIDE RECORDS SUMMARY | 2024-08-30 07:40 | XMS_ITS | Encounter Summary ---
Author Organization [employer] ([place], [place], [place], [place]) Address [address] [place] [address] Care Team Providers Care Cigarette Machines Mechanic Name Role Phone Unavailable Primary Care Provider Unavailabl e Encounter Details Date Type Department Care Team (Late st Contact Info) Description 06/19/2019 Transcribed Document [facility] [place] [facility] [place] [facility] [place] [address] ProviderMariela MD [address] [place] [address] Social History Tobacco Use Types Packs/Day Years [...]
--- OUTSIDE RECORDS SUMMARY | 2024-08-30 07:40 | XMS_ITS | Encounter Summary ---
Author Organization [employer] ([place], [place], [place], [place]) Address [address] [place] [address] Care Team Providers Care Health Specialist Name Role Phone Unavailable Primary Care Provider Unavailabl e Encounter Details Date Type Department Care Team (Late st Contact Info) Description 07/05/2019 Transcribed Document [facility] [place] [facility] [place] [address] ProviderMariela MD [address] [place] [address] Social History Tobacco Use Types Packs/Day Years [...] Historical ProviderMD - 07/05/2019 2:00 AM CDT Sole Cutter Details Entered On: 07/05/2019 4:03 EDT Performed [...] Bibi Gallagher RN - 07/05/2019 3:56 EDT Electronically signed by Chantal [facility] Conversion Indigo Vat Tender Cloth Cerner at 06/16/2022 8:15 PM CDT documented in this encounter Plan of Treatment Not on file documented as of this encounter Visit Diagnoses Not on filedocumented in this encounter
--- OUTSIDE RECORDS SUMMARY | 2024-08-30 07:40 | XMS_ITS | Encounter Summary ---
Author Organization [employer] ([place], [place], [place], [place]) Address [address] [place] [address] Care Team Providers Care Fire Regulator Name Role Phone Unavailable Primary Care Provider Unavailabl e Encounter Details Date Type Department Care Team (Late st Contact Info) Description 07/04/2019 Transcribed Document [facility] [place] [address] [place] [address] ProviderMariela MD [address] [place], [place] [phone] Social History Tobacco Use Types Packs/Day Years [...]
--- OUTSIDE RECORDS SUMMARY | 2024-08-30 07:40 | XMS_ITS | Encounter Summary ---
Author Organization [employer] ([place], [place], [place], [place]) Address [address] [place] [address] Care Team Providers Care Research And Development Technician Name Role Phone Unavailable Primary Care Provider Unavailabl e Encounter Details Date Type Department Care Team (Late st Contact Info) Description 06/30/2019 Transcribed Document [facility] [place] [address] [place] [address] ProviderMariela MD [address] [place], [place] [phone] Social History Tobacco Use Types Packs/Day Years [...] Georgina Olivo RN - 06/30/2019 6:36 EDT Electronically signed by Maureen Cornejo Conversion [employer] Artistic Director Min at 06/16/2022 8:03 PM CDT documented in this encounter Plan of Treatment Not on file documented as of this encounter Visit Diagnoses Not on filedocumented in this encounter
--- OUTSIDE RECORDS SUMMARY | 2024-08-30 07:40 | XMS_ITS | Encounter Summary ---
Author Organization [employer] ([place], [place], [place], [place]) Address [address] [place] [address] Care Team Providers Care Stress Analyst Name Role Phone Unavailable Primary Care Provider Unavailabl e Encounter Details Date Type Department Care Team (Late st Contact Info) Description 06/29/2019 Transcribed Document [facility] [place] [facility] [place] [address] ProviderMariela MD [address] [place] [phone] Social History Tobacco Use Types Packs/Day Years [...] She denies ever requiring dialysis. She [facility] and she has been to the [facility] [facility] and [facility] in the past. She has the following equipment at home: wheel chair, walker, cane and shower chair. Her discharge plan is to go to rehab prior to returning home. PCP: Flavia MARQUEZ [address] [phone] Veterinary Medical Officer: Dr. Shemar Barger [address] [facility] [address] [facility] [phone] Clemente Del Rio MD - Rheumatology - [address] [phone] Preferences: Home Health: [facility]: no preferences DME: [facility] - [address], [place] [phone] Mcfp: [place] [facility] facility: no preferences Will continue to monitor patient for anticipated discharge needs Care Management Note Report : YOANNA ARAUJO RN - 06/29/19 08:30:20 Yoanna Araujo 06/29/2019 0830 received fax from [facility] with approval for extended ltac coverage with next clinical review due on 07/12/2019. Auth#[id number]. Will continue to follow for anticipated discharge needs. YOANNA ARAUJO RN - 06/28/19 08:35:06 Yoanna Araujo 06/28/2019 0830 Faxed clinical review to [facility] at to request approval for extended Ltac services. Auth#[id number]. Pending Approval. Documentation Status Complete : Yes YOANNA ARAUJO RN - 06/29/2019 17:14 EDT Electronically signed by Maureen Cornejo Conversion Electrical Continuity Inspector Min at 06/16/2022 8:29 PM CDT documented in this encounter Plan of Treatment Not on file documented as of this encounter Visit Diagnoses Not on filedocumented in this encounter
--- OUTSIDE RECORDS SUMMARY | 2024-08-30 07:40 | XMS_ITS | Encounter Summary ---
Author Organization [employer] ([place], [place], [place], [place]) Address [address] [place] [address] Care Team Providers Care Automobile Engine Assembler Name Role Phone Unavailable Primary Care Provider Unavailabl e Encounter Details Date Type Department Care Team (Late st Contact Info) Description 06/19/2019 Transcribed Document [facility] [place] Family [place] [address] [place] [address] ProviderMariela MD [address] [place], [place] [phone] Social History Tobacco Use Types Packs/Day Years [...] Performed On: 06/19/2019 14:00 EDT by KACIE MAJOR PT Attempt to Treat Inability to Treat Comment : Pt is scheduled for an AKA on 06/19. PT will hold until after sx. KACIE MAJOR, PT - 06/19/2019 14:00 EDT documented in this encounter Plan of Treatment Not on file documented as of this encounter Visit Diagnoses Not on filedocumented in this encounter
--- OUTSIDE RECORDS SUMMARY | 2024-08-30 07:40 | XMS_ITS | Encounter Summary ---
Author Organization [employer] ([place], [place], [place], [place]) Address [address] [place] [address] Care Team Providers Care Dining Service Worker Name Role Phone Unavailable Primary Care Provider Unavailabl e Encounter Details Date Type Department Care Team (Late st Contact Info) Description 07/12/2019 Transcribed Document [facility] [place] [facility] [place] [place] [address] ProviderMariela MD [address] [place] [address] Social History Tobacco Use Types Packs/Day Years [...] Caitlyn Chauhan Rn - 07/12/2019 13:11 EDT documented in this encounter Plan of Treatment Not on file documented as of this encounter Visit Diagnoses Not on filedocumented in this encounter
--- OUTSIDE RECORDS SUMMARY | 2024-08-30 07:40 | XMS_ITS | Encounter Summary ---
Author Organization [employer] ([place], [place], [place], [place]) Address [address] [place] [address] Care Team Providers Care Multifold Operator Name Role Phone Unavailable Primary Care Provider Unavailabl e Encounter Details Date Type Department Care Team (Late st Contact Info) Description 07/05/2019 Transcribed Document [facility] [place] [facility] [place] [address] ProviderMariela MD [facility] [place] [address] Social History Tobacco Use Types [...] MANUEL CABRAL LPN - 07/05/2019 7:41 EDT documented in this encounter Plan of Treatment Not on file documented as of this encounter Visit Diagnoses Not on filedocumented in this encounter
--- OUTSIDE RECORDS SUMMARY | 2024-08-30 07:40 | XMS_ITS | Encounter Summary ---
Author Organization [employer] ([place], [place], [place], [place]) Address [address] [place] [address] Care Team Providers Care Source Inspector Name Role Phone Unavailable Primary Care Provider Unavailabl e Encounter Details Date Type Department Care Team (Late st Contact Info) Description 07/04/2019 Transcribed Document [facility] [place] [facility] [place] [address] ProviderMariela MD [address] [place] [address] Social History Tobacco Use Types Packs/Day [...] Conversion Note - Mariela ProviderMD - 07/04/2019 8:21 AM CDT Patient: SOFIA GILL Age: 79 years Sex: Female : 1940 Associated Diagnoses: None Author: CHRISSY HENDERSON, PharmD, BCPS HPI: 06/15 [place] [facility] [place] [facility] [place] [...] 94 (JULY 02:) Resp Rate 17 (JULY 03:00) 16 (JULY 02 23:00) 20 (JULY 02:) SBP 129 (JULY 03 08:00) 117 (JULY 02:00) H 141 (JULY 02:) DBP L 48 (JULY 03 08:00) L [...] Q3days. Rx to follow, Chrissy Henderson, PharmD [phone] documented in this encounter Plan of Treatment Not on file documented as of this encounter Visit Diagnoses Not on filedocumented in this encounter
--- OUTSIDE RECORDS SUMMARY | 2024-08-30 07:40 | XMS_ITS | Encounter Summary ---
Author Organization [employer] ([place], [place], [place], [place]) Address [address] [place] [address] Care Team Providers Care Jigger Operator Name Role Phone Unavailable Primary Care Provider Unavailabl e Encounter Details Date Type Department Care Team (Late st Contact Info) Description 06/30/2019 Transcribed Document [facility] [place] [facility] [place] [address] ProviderMariela MD [address] [place] [address] Social History Tobacco Use Types Packs/Day [...] Conversion Note - Mariela ProviderMD - 06/30/2019 12:23 PM CDT Patient: SOFIA BARLOW Age: 79 years Sex: Female : 1940 Associated Diagnoses: None Author: Hui Mccormick, Pharmacist-Resident HPI: 06/15 [place] [facility] [facility] [place] [...] Last Charted Minimum Maximum Temp 98.5 (JUNE 29:) 98.5 (JUNE 29:) 98.4 (JUN 28:) Mon HR 83 (JUNE 29:) 83 (JUN 28:) 93 (JUN 28:) Resp Rate 16 (JUNE 29:) 16 (JUNE 29:) 20 (JUN 28:) SBP 133 (JUNE 29:) 114 (JUN 28:) H 148 (JUN 28:) DBP L 47 (JUNE 29:) L 47 (JUNE 29:) L 59 (JUN 28 23:) MAP 66 (JUN 28:00) 66 (JUN 28:00) 66 (JUN 28:00) SpO2 94 (JUNE 29:) 94 (JUNE 29:) 98 (JUN 28:) Intake & Output Totals Last 24 Hours [...] (started 06/28) Rx to follow, Neelam Mccormick, PharmD # [phone] Electronically signed by Chantal, [facility] Conversion Surgical Services Manager Cerner at 06/16/2022 8:05 PM CDT documented in this encounter Plan of Treatment Not on file documented as of this encounter Visit Diagnoses Not on filedocumented in this encounter
--- OUTSIDE RECORDS SUMMARY | 2024-08-30 07:40 | XMS_ITS | Encounter Summary ---
Author Organization [employer] ([place], [place], [place], [place]) Address [address] [place] [address] Care Team Providers Care Home Care Assistant Name Role Phone Unavailable Primary Care Provider Unavailabl e Encounter Details Date Type Department Care Team (Late st Contact Info) Description 06/19/2019 Transcribed Document [facility] [place] [address] ProviderMariela MD [address] [place] [phone] Social History Tobacco Use Types Packs/Day Years [...] Spiritual Care Spiritual Care Referred by : Forming Operator initiated Reason for Visit : Initial Ministry Provided to : Patient Intervention/Comment/Summary Points : Sy is a 79-year-old patient who is seen awake and resting in bed. She complains of shoulder pain and discomfort. Communicated her concerns to her nurse. Provided pastoral care, empathic listening and emotional support. Also faciliated communication with care team. Yarsanism Preference : [employer] PARTHA KUMAR Chaplain-Non Cert - 06/19/2019 13:10 EDT documented in this encounter Plan of Treatment Not on file documented as of this encounter Visit Diagnoses Not on filedocumented in this encounter
--- OUTSIDE RECORDS SUMMARY | 2024-08-30 07:40 | XMS_ITS | Encounter Summary ---
Author Organization [employer] ([place], [place], [place], [place]) Address [address] [place] [address] Care Team Providers Care Skip Locator Name Role Phone Unavailable Primary Care Provider Unavailabl e Encounter Details Date Type Department Care Team (Late st Contact Info) Description 07/04/2019 Transcribed Document [facility] [address] [place] [address] Jordan Barahona MD [address] [phone] Social History Tobacco Use Types Packs/Day Years [...] Conversion Note - Jordan Barahona MD - 07/04/2019 12:28 PM EDT [...] Resp Rate 17 (JULY 03:00) 16 (JULY 02:00) 20 (JULY 02:) SBP 129 (JULY 03 08:00) 117 (JULY 02:00) H 141 (JULY 02:) DBP L 48 (JULY 03 08:00) L 42 (JULY 02:00) L 49 (JULY 02:) MAP 61 (JULY 02:) 61 (JULY 02:) 61 (JULY 02:) SpO2 96 (JULY 03:) 95 (JULY 02:) 98 (JULY 02:) Physical [...] (JULY 02) L 2.4 (JUN 26) Micro: [facility]: 06/15 [facility] Blood cultures positive for group B [...]
--- OUTSIDE RECORDS SUMMARY | 2024-08-30 07:40 | XMS_ITS | Encounter Summary ---
Author Organization [employer] ([place], [place], [place], [place]) Address [address] [place] [address] Care Team Providers Care Swimming Pool Maintenance Name Role Phone Unavailable Primary Care Provider Unavailabl e Encounter Details Date Type Department Care Team (Late st Contact Info) Description 07/05/2019 Transcribed Document [facility] [place] [facility] [place] [address] ProviderMariela MD [facility] [place], [place] [phone] Social History Tobacco Use Types [...]
--- OUTSIDE RECORDS SUMMARY | 2024-08-30 07:40 | XMS_ITS | Encounter Summary ---
Author Organization [facility] ([place], [place], [place], [place]) Address [address] [place] [address] Care Team Providers Care Antenna Design Engineer Name Role Phone Unavailable Primary Care Provider Unavailabl e Encounter Details Date Type Department Care Team (Late st Contact Info) Description 07/05/2019 Transcribed Document [facility] [place] [facility] [place] [address] ProviderMariela MD [address] [place] [phone] Social History Tobacco Use Types Packs/Day Years [...] Conversion Note - Mariela Gates MD - 07/05/2019 7:07 PM CDT Patient: SOFIA GILL Age: [...] 0.9% 50 mL 2 Gram, IV Piggyback, [id number] cyanocobalamin 1,000 mcg tab 5,000 mcg 5 [...] fluticasone 0.05% nasal spray 100 mcg 2 [place], Nostrils Both, BID magnesium hydroxide 8% liq [...] 15.8 % LOW Lymph # 1.25 x10(3)/uL [place] % 11.3 % HI [place] # 0.89 K/uL Eos % 2.3 % [...]
--- OUTSIDE RECORDS SUMMARY | 2024-08-30 07:40 | XMS_ITS | Encounter Summary ---
Author Organization [employer] ([place], [place], [place], [place]) Address [address] [place] [address] Care Team Providers Care Steel Engraver Name Role Phone Unavailable Primary Care Provider Unavailabl e Encounter Details Date Type Department Care Team (Late st Contact Info) Description 08/20/2020 Transcribed Document [facility] [place] [facility] [place] [address] ProviderMariela MD [facility] [place] [address] Social History Tobacco Use Types [...] Conversion Note - Mariela ProviderMD - 08/20/2020 9:00 PM CDT Pain [...]
--- OUTSIDE RECORDS SUMMARY | 2024-08-30 07:40 | XMS_ITS | Encounter Summary ---
Author Organization [employer] ([place], [place], [place], [place]) Address [address] [place] [address] Care Team Providers Care Radiologic Tech Name Role Phone Unavailable Primary Care Provider Unavailabl e Encounter Details Date Type Department Care Team (Late st Contact Info) Description 07/04/2019 Transcribed Document [facility] [place] [facility] [place] [address] ProviderMariela MD [address] [place] [address] Social History Tobacco Use Types Packs/Day Years [...] Historical ProviderMD - 07/04/2019 2:00 AM CDT Clinical Case Manager Details Entered On: 07/04/2019 3:09 EDT Performed [...] Bibi Gallagher RN - 07/04/2019 3:08 EDT Electronically signed by Chantal [facility] Conversion Finisher Special Stocks Cerner at 06/16/2022 8:21 PM CDT documented in this encounter Plan of Treatment Not on file documented as of this encounter Visit Diagnoses Not on filedocumented in this encounter
--- OUTSIDE RECORDS SUMMARY | 2024-08-30 07:40 | XMS_ITS | Encounter Summary ---
Author Organization [employer] ([place], [place], [place], [place]) Address [address] [place] [address] Care Team Providers Care Activity Therapist Name Role Phone Unavailable Primary Care Provider Unavailabl e Encounter Details Date Type Department Care Team (Late st Contact Info) Description 06/19/2019 Transcribed Document [facility] [place] [facility] [place] [address] ProviderMariela MD [address] [place] [address] Social History Tobacco Use Types Packs/Day [...] Conversion Note - Mariela ProviderMD - 06/19/2019 11:33 AM CDT On Going Discharge Planning Entered On: 06/19/2019 11:35 EDT Performed On: 06/19/2019 11:33 EDT by MIKE FRIEDMAN RN-Student Union ConsultantData Processing Consultant Progress Note Discharge Arrangements : Patient Post-Acute Information Patient Name: SOFIA GILL Gender: Female : [birth year] Age: 79 Years No Post-Acute Placement(s) Listed No Post-Acute Service(s) Listed No [place] Referral(s) Listed Discharge Options Discussed with Patient : Outpatient services MIKE FRIEDMAN RN-Student Union Consultant - 06/19/2019 11:33 EDT Narrative Progress Note Narrative Progress Note : Patient becoming more agitated and confused, refusing to wear oxygen. Patient now on CPAP, WBC increased, BC x2 positive for group b Strep. Dr Saenz to perform AKA tomorrow morning. Will continue to follow..............MIKE Adam, RN-Student Union Consultant - 06/19/2019 11:33 EDT Electronically signed by Chantal [facility] Conversion Electric Shipyard Operator Cerner at 06/16/2022 8:02 PM CDT documented in this encounter Plan of Treatment Not on file documented as of this encounter Visit Diagnoses Not on filedocumented in this encounter
--- OUTSIDE RECORDS SUMMARY | 2024-08-30 07:40 | XMS_ITS | Encounter Summary ---
Author Organization [employer] ([place], [place], [place], [place]) Address [address] [place] [address] Care Team Providers Care Produce Runner Name Role Phone Unavailable Primary Care Provider Unavailabl e Encounter Details Date Type Department Care Team (Late st Contact Info) Description 07/05/2019 Transcribed Document [facility] Radiology [address] [place] [address] Jordan Barahona MD [address] [id number] Social History Tobacco Use Types Packs/Day Years [...] 99.8 (JULY 03:) Mon HR 97 (JULY 04:) 89 (JULY 04:) 103 (JULY 03:00) Resp Rate 20 (JULY 04:00) 16 (JULY 04:00) 20 (JULY 04:) SBP H 143 (JULY 04:) 126 (JULY 03:00) H 147 (JULY 03:) DBP L 46 (JULY 04:) L 44 (JULY 03:) L 55 (JULY 04:) MAP 67 (JULY 03:) 67 (JULY 03:00) 67 (JULY 03:) SpO2 [...] (JULY 02) L 2.4 (JUN 26) Micro: [facility]: 06/15 [facility] Blood cultures positive for group [...]
--- OUTSIDE RECORDS SUMMARY | 2024-08-30 07:40 | XMS_ITS | Encounter Summary ---
Author Organization [employer] ([place], [place], [place], [place]) Address [address] [place] [address] Care Team Providers Care Glove Turner Name Role Phone Unavailable Primary Care Provider Unavailabl e Encounter Details Date Type Department Care Team (Late st Contact Info) Description 07/14/2019 Transcribed Document [facility] [place] Family Medicine [address] [place] [address] ProviderMariela MD [address] [place] [phone] Social History Tobacco Use Types Packs/Day Years [...]
--- OUTSIDE RECORDS SUMMARY | 2024-08-30 07:40 | XMS_ITS | Encounter Summary ---
Author Organization [employer] ([place], [place], [place], [place]) Address [address] [place] [address] Care Team Providers Care Fire Protection Inspector Name Role Phone Unavailable Primary Care Provider Unavailabl e Encounter Details Date Type Department Care Team (Late st Contact Info) Description 06/19/2019 Transcribed Document [facility] [place] [address] ProviderMariela MD [address] [place], [place] [phone] Social History Tobacco Use Types Packs/Day Years [...] Conversion Note - Mariela ProviderMD - 06/19/2019 9:28 AM CDT UM Authorization Entered On: 06/19/2019 9:28 EDT Performed On: 06/19/2019 9:28 EDT by TIESHA AQUINO RN-Utilization Review Primary Insurance Authorization Authorization and Policy Numbers : Insurance 1 Health Plan: [facility] MEDICARE ADVANTAGE Policy Number: [id number] Authorization Number: Insurance Primary Name : [facility] [employer]AGE Policy Number: [id number] Authorization Status-Primary : Pending clinicals Reference Number-Primary : [id number] Authorized Service Begin Date-Primary : 06/16/2019 EDT Historical Authorization Comments-Primary : Comment 1: Attempted auth on [facility] portal, message that notification cannot be completed online, Call number on back of card (Michelle Jimenez Rn-Utilization Review 06/17/2019 10:02) TIESHA AQUINO RN-Utilization Review - 06/19/2019 9:28 EDT Electronically signed by Chantal, [facility] Conversion Coreroom Foundry Laborer Cerner at 06/16/2022 8:15 PM CDT documented in this encounter Plan of Treatment Not on file documented as of this encounter Visit Diagnoses Not on filedocumented in this encounter
--- OUTSIDE RECORDS SUMMARY | 2024-08-30 07:40 | XMS_ITS | Encounter Summary ---
Author Organization [employer] ([place], [place], [place], [place]) Address [address] [place] [address] Care Team Providers Care Liquid Compounder Name Role Phone Unavailable Primary Care Provider Unavailabl e Encounter Details Date Type Department Care Team (Late st Contact Info) Description 06/29/2019 Transcribed Document [facility] [place] [facility] Medicine [facility] [place] [address] ProviderMariela MD [address] [place] [address] Social History Tobacco Use Types Packs/Day [...] Conversion Note - Mariela ProviderMD - 06/29/2019 9:15 AM CDT Patient: SOFIA GILL Age: 79 years Sex: Female : 1940 Associated Diagnoses: None Author: CHRISSY HENDERSON, PharmD, BCPS HPI: 06/15 Pt admitted to [facility] [place]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 Rx to follow, Chrissy Henderson, PharmD [phone] Electronically signed by Chantal, [facility] Conversion Supervisor Drapery Hanging Cerner at 06/16/2022 8:24 PM CDT documented in this encounter Plan of Treatment Not on file documented as of this encounter Visit Diagnoses Not on filedocumented in this encounter
--- OUTSIDE RECORDS SUMMARY | 2024-08-30 07:40 | XMS_ITS | Encounter Summary ---
Author Organization [employer] ([place], [place], [place], [place]) Address [address] [place] [address] Care Team Providers Care Graphic Arts Instructor Name Role Phone Unavailable Primary Care Provider Unavailabl e Encounter Details Date Type Department Care Team (Late st Contact Info) Description 07/05/2019 Transcribed Document [facility] [place] [facility] [place] [address] ProviderMariela MD [facility] [place] [address] Social History Tobacco Use Types [...] MIGDALIA TOBIN PTA - 07/05/2019 7:52 EDT Electronically signed by Chantal [facility] Conversion Prune Washer Cerner at 06/16/2022 8:21 PM CDT documented in this encounter Plan of Treatment Not on file documented as of this encounter Visit Diagnoses Not on filedocumented in this encounter
--- OUTSIDE RECORDS SUMMARY | 2024-08-30 07:40 | XMS_ITS | Encounter Summary ---
Author Organization [employer] ([place], [place], [place], [place]) Address [address] [place] [address] Care Team Providers Care Gun Club Manager Name Role Phone Unavailable Primary Care Provider Unavailabl e Encounter Details Date Type Department Care Team (Late st Contact Info) Description 07/04/2019 Transcribed Document [facility] [place] [facility] [place] [address] ProviderMariela MD [address] [place] [phone] Social History Tobacco Use Types Packs/Day Years [...] 07/04/2019 8:39 EDT by MASSIEL HENDERSON PharmD, BCPS Interdisciplinary [...] with goal < 2. MASSIEL HENDERSON PharmD, BCPS - 07/04/2019 8:39 EDT documented in this encounter Plan of Treatment Not on file documented as of this encounter Visit Diagnoses Not on filedocumented in this encounter
--- OUTSIDE RECORDS SUMMARY | 2024-08-30 07:40 | XMS_ITS | Encounter Summary ---
Author Organization [employer] ([place], [place], [place], [place]) Address [address] [place] [address] Care Team Providers Care Trade Manager Name Role Phone Unavailable Primary Care Provider Unavailabl e Encounter Details Date Type Department Care Team (Late st Contact Info) Description 06/29/2019 Transcribed Document [facility] [place] [facility] [place] [address] ProviderMariela MD [address] [place] [address] Social History Tobacco Use Types Packs/Day Years [...]
--- OUTSIDE RECORDS SUMMARY | 2024-08-30 07:40 | XMS_ITS | Encounter Summary ---
Author Organization [employer] ([place], [place], [place], [place]) Address [address] [place] [address] Care Team Providers Care Nurse Practitioner Per Diem Name Role Phone Unavailable Primary Care Provider Unavailabl e Encounter Details Date Type Department Care Team (Late st Contact Info) Description 07/12/2019 Transcribed Document [facility] [place] [facility] [place] [address] ProviderMariela MD [address] [place] [phone] Social History Tobacco Use Types Packs/Day Years [...] Conversion Note - Mariela ProviderMD - 07/12/2019 9:00 PM CDT Pain [...]
--- OUTSIDE RECORDS SUMMARY | 2024-08-30 07:41 | XMS_ITS | Encounter Summary ---
Author Organization [employer] ([place], [place], [place], [place]) Address [address] [place] [address] Care Team Providers Care Hem Inspector Name Role Phone Unavailable Primary Care Provider Unavailabl e Encounter Details Date Type Department Care Team (Late st Contact Info) Description 06/20/2019 Transcribed Document [facility] [place] [facility] [place] [address] ProviderMariela MD [facility] [place] [address] Social History Tobacco Use Types [...] Conversion Note - Mariela ProviderMD - 06/20/2019 10:48 AM CDT Patient: [...] Mon HR 102 (JUN 19 09:16) 58 (JUN 18 23:11) 105 (JUN 19 00:19) Resp Rate 20 (JUN 19 09:16) 16 (JUN 18 23:11) 20 (JUN 19 05:00) SBP H 146 (JUN 19:16) 107 (JUN 19 02:00) H 156 (JUN 19:22) DBP 79 (JUN 19 09:16) L 54 (JUN 18 17:51) H 95 (JUN 18 23:11) MAP 94 (JUN 19:16) 68 (JUN 19 02:00) 103 (JUN 18 [...] L 130 (JUN 16) K 4.6 (JUN 19) 4.6 (JUN 18) H 5.3 (JUN 17) H 5.8 (JUN 16) Cl 102 (JUN 19) 103 (JUN 18) L 97 (JUN 17) L 97 (JUN 16) CO2 22 (JUN 19) 22 (JUN 18) [...] (JUN 18) L 2.0 (JUN 16) Micro: [facility]: 06/15 [facility] Blood cultures positive for group B strep and 2/2 bottles SJE: 06/16 fluid aspiration of left knee shows 118,150 white blood cells, GPC 06/16 repeat blood cultures with Group B Strep 06/16 MRSA surveillance culture and pro/pending 06/16 Urine culture in process/pending Rad: Radiology Results (Last 48 hours) [id number] -- 06/16/2019 21:08 CR Knee 1 or [...] course of IV antibiotics - orthopedic surgery following.JACINTO planned for tomorrow documented in this encounter Plan of Treatment Not on file documented as of this encounter Visit Diagnoses Not on filedocumented in this encounter
--- OUTSIDE RECORDS SUMMARY | 2024-08-30 07:41 | XMS_ITS | Encounter Summary ---
Author Organization [employer] ([place], [place], [place], [place]) Address [address] [place] [address] Care Team Providers Care Topstitcher Zigzag Name Role Phone Unavailable Primary Care Provider Unavailabl e Encounter Details Date Type Department Care Team (Late st Contact Info) Description 08/24/2018 Transcribed Document [facility] [place] [facility] [place] [address] ProviderMariela MD [address] [place] [address] Social History Tobacco Use Types Packs/Day [...] Cerner Conversion Note - Mariela ProviderMD - 08/24/2018 3:00 PM CDT Pain [...]
--- OUTSIDE RECORDS SUMMARY | 2024-08-30 07:41 | XMS_ITS | Encounter Summary ---
Author Organization [employer] ([place], [place], [place], [place]) Address [address] [place] [address] Care Team Providers Care Satellite Installation Technician Name Role Phone Unavailable Primary Care Provider Unavailabl e Encounter Details Date Type Department Care Team (Late st Contact Info) Description 08/23/2018 Transcribed Document [facility] [place] [address] [place] [address] ProviderMariela MD [address] [place], [place] [phone] Social History Tobacco Use Types Packs/Day Years [...]
--- OUTSIDE RECORDS SUMMARY | 2024-08-30 07:41 | XMS_ITS | Encounter Summary ---
Author Organization [employer] ([place], [place], [place], [place]) Address [address] [place] [address] Care Team Providers Care Hand Fabric Cutter Name Role Phone Unavailable Primary Care Provider Unavailabl e Encounter Details Date Type Department Care Team (Late st Contact Info) Description 08/24/2018 Transcribed Document [facility] [place] [facility] [place] [address] ProviderMariela MD [address] [place] [address] Social History Tobacco Use Types Packs/Day [...] Conversion Note - Mariela ProviderMD - 08/24/2018 9:00 AM CDT Pain [...]
--- OUTSIDE RECORDS SUMMARY | 2024-08-30 07:41 | XMS_ITS | Encounter Summary ---
Author Organization [employer] ([place], [place], [place], [place]) Address [address] [place] [address] Care Team Providers Care Sustainability Officer Name Role Phone Unavailable Primary Care Provider Unavailabl e Encounter Details Date Type Department Care Team (Late st Contact Info) Description 07/14/2019 Transcribed Document [facility] [place] [facility] [place] [address] ProviderMariela MD [address] [place] [address] Social History Tobacco Use Types Packs/Day [...] Conversion Note - Mariela ProviderMD - 07/14/2019 9:00 AM CDT Pain Assessment Entered On: 07/14/2019 10:43 EDT Performed On: 07/14/2019 10:14 EDT by Marisela Rangel RN Intervention Information: [...]
--- OUTSIDE RECORDS SUMMARY | 2024-08-30 07:41 | XMS_ITS | Encounter Summary ---
Author Organization [employer] ([place], [place], [place], [place]) Address [address] [place] [address] Care Team Providers Care Well Driller Helper Name Role Phone Unavailable Primary Care Provider Unavailabl e Encounter Details Date Type Department Care Team (Late st Contact Info) Description 06/20/2019 Transcribed Document [facility] [place] [address] ProviderMariela MD [address] [place] [address] Social History Tobacco Use Types Packs/Day Years [...] MUKUL MARTINEZ PT - 06/20/2019 10:45 EDT documented in this encounter Plan of Treatment Not on file documented as of this encounter Visit Diagnoses Not on filedocumented in this encounter
--- OUTSIDE RECORDS SUMMARY | 2024-08-30 07:41 | XMS_ITS | Encounter Summary ---
Author Organization [employer] ([place], [place], [place], [place]) Address [address] [place] [address] Care Team Providers Care Sales And Marketing Engineer Name Role Phone Unavailable Primary Care Provider Unavailabl e Encounter Details Date Type Department Care Team (Late st Contact Info) Description 06/18/2019 Transcribed Document [facility] [place] [facility] [address] ProviderMariela MD [address] [place] [address] Social History Tobacco Use Types Packs/Day [...] Conversion Note - Mariela Gates MD - 06/18/2019 10:55 PM CDT Patient: SOFIA GILL Age: 79 [...] 0.9% 50 mL 2 Gram, IV Piggyback, [id number] clindamycin/D5w 600 mg 50 mL, IV Piggyback, [...] Oral, Q4H fluticasone 0.05% nasal spray 2 [place], Nostrils Both, BID gabapentin 300 mg cap [...] % LOW ALYC # 1 K/uL NA [place] Percent Man 5 % RBC Morphology Normal [...]
--- OUTSIDE RECORDS SUMMARY | 2024-08-30 07:41 | XMS_ITS | Encounter Summary ---
Author Organization [employer] ([place], [place], [place], [place]) Address [address] [place] [address] Care Team Providers Care Medical Research Associate Name Role Phone Unavailable Primary Care Provider Unavailabl e Encounter Details Date Type Department Care Team (Late st Contact Info) Description 06/29/[address] [facility] [place] [facility] Medicine [facility] [place] [address] ProviderMariela MD [address] [place] [address] Social History Tobacco Use Types Packs/Day [...] Note - Mariela Gates MD - 06/29/2019 5:02 PM CDT Patient: SOFIA GILL Age: 79 [...] 0.9% 50 mL 2 Gram, IV Piggyback, [id number] cyanocobalamin 1,000 mcg tab 5,000 mcg 5 [...] fluticasone 0.05% nasal spray 100 mcg 2 [place], Nostrils Both, BID magnesium hydroxide 8% liq [...]
--- OUTSIDE RECORDS SUMMARY | 2024-08-30 07:41 | XMS_ITS | Encounter Summary ---
Author Organization [employer] ([place], [place], [place], [place]) Address [address] [place] [address] Care Team Providers Care Linen Controller Name Role Phone Unavailable Primary Care Provider Unavailabl e Encounter Details Date Type Department Care Team (Late st Contact Info) Description 07/03/2019 Transcribed Document [facility] Radiology [address] [place] [address] Jordan Barahona MD [address] [phone] Social History Tobacco Use Types Packs/Day Years [...] HR 92 (JULY 02 07:00) 80 (JULY 01:00) 92 (JULY 01 23:38) Resp Rate 20 (JULY 02 07:00) 16 (JULY 01:00) 20 (JULY 02:) SBP 125 (JULY 02 08:15) 106 (JULY 01 19:00) 129 (JULY 01 15:00) DBP 88 (JULY 02 08:15) L 42 (JULY 01 23:38) 88 (JULY 02:00) MAP 58 (JULY 01:38) 58 (JULY 01 23:38) 60 (JULY 01:00) SpO2 L 93 (JULY 02:) L 93 (JULY 02:) 100 (JULY 01:38) Physical Examination: Gen: Alert, [...] (JULY 02) L 2.4 (JUN 26) Micro: [facility]: 06/15 [facility] [...]
--- OUTSIDE RECORDS SUMMARY | 2024-08-30 07:41 | XMS_ITS | Encounter Summary ---
Author Organization [employer] ([place], [place], [place], [place]) Address [address] [place] [address] Care Team Providers Care Audio Visual Arts Director Name Role Phone Unavailable Primary Care Provider Unavailabl e Encounter Details Date Type Department Care Team (Late st Contact Info) Description 06/30/2019 Transcribed Document [facility] [place] Medicine [facility] [place] [address] ProviderMariela MD [address] [place] [address] Social History Tobacco Use Types Packs/Day Years [...] Historical ProviderMD - 06/30/2019 2:00 AM CDT Radiation Engineer Details Entered On: 06/30/2019 3:12 EDT Performed [...]
--- OUTSIDE RECORDS SUMMARY | 2024-08-30 07:41 | XMS_ITS | Encounter Summary ---
Author Organization [employer] ([place], [place], [place], [place]) Address [address] [place] [address] Care Team Providers Care Office Support Clerk Name Role Phone Unavailable Primary Care Provider Unavailabl e Encounter Details Date Type Department Care Team (Late st Contact Info) Description 06/21/2019 Transcribed Document [facility] [place] [address] [place] [address] ProviderMariela MD [address] [place], [place] [phone] Social History Tobacco Use Types Packs/Day Years [...] Performed On: 06/21/2019 17:00 EDT by Camille Wagner, RN Chart Check Powerplans Initiated/Discontinued as Appropriate : Yes All Active Orders Reviewed : Yes Camille Wagner RN - 06/21/2019 18:16 EDT documented in this encounter Plan of Treatment Not on file documented as of this encounter Visit Diagnoses Not on filedocumented in this encounter
--- OUTSIDE RECORDS SUMMARY | 2024-08-30 07:41 | XMS_ITS | Encounter Summary ---
Author Organization [employer] ([place], [place], [place], [place]) Address [address] [place] [address] Care Team Providers Care Hook Up Name Role Phone Unavailable Primary Care Provider Unavailabl e Encounter Details Date Type Department Care Team (Late st Contact Info) Description 07/03/2019 Transcribed Document [facility] [place] Medicine [facility] [place] [address] ProviderMariela MD [address] [place] [address] Social History Tobacco Use Types Packs/Day Years Used Date Smoking Tobacco: Never Assessed Comments Unknown Sex and Gender Information Value Date Recorded Sex Assigned at Female 09/02/2021 8:57 PM CDT Legal Sex Female 6:58 PM CDT Gender Identity Female 09/02/2021 8:57 PM CDT Sexual Orientation Not on file documented as of this encounter Miscellaneous Notes * [employer]ner Conversion Note - Marieal Gates MD - 07/03/2019 6:20 PM CDT Patient: SOFIA GILL Age: 79 [...] 0.9% 50 mL 2 Gram, IV Piggyback, [id number] cyanocobalamin 1,000 mcg tab 5,000 mcg 5 [...] fluticasone 0.05% nasal spray 100 mcg 2 [place], Nostrils Both, BID magnesium hydroxide 8% liq [...] % 22.6 % Lymph # 1.63 x10(3)/uL [place] % 13.7 % [place] # 0.99 K/uL [place] % 2.9 % [...]
--- OUTSIDE RECORDS SUMMARY | 2024-08-30 07:41 | XMS_ITS | Encounter Summary ---
Author Organization [employer] ([place], [place], [place], [place]) Address [address] [place] [address] Care Team Providers Care Cardroom Supervisor Name Role Phone Unavailable Primary Care Provider Unavailabl e Encounter Details Date Type Department Care Team (Late st Contact Info) Description 08/24/2018 Transcribed Document [facility] [place] Family Medicine [address] [place] [address] ProviderMariela MD [address] [place], [place] [phone] Social History Tobacco Use Types Packs/Day Years [...]
--- OUTSIDE RECORDS SUMMARY | 2024-08-30 07:41 | XMS_ITS | Encounter Summary ---
Author Organization [employer] ([place], [place], [place], [place]) Address [address] [place] [address] Care Team Providers Care Auto Body Mechanic Apprentice Name Role Phone Unavailable Primary Care Provider Unavailabl e Encounter Details Date Type Department Care Team (Late st Contact Info) Description 07/02/2019 Transcribed Document [facility] [place] [facility] [place] [address] ProviderMariela MD [address] [place] [address] Social History Tobacco Use Types Packs/Day [...] Conversion Note - Mariela ProviderMD - 07/02/2019 10:12 AM CDT Patient: SOFIA GILL Age: 79 years Sex: Female : 1940 Associated Diagnoses: None Author: Prabhjot Devine, Pharmacist-Resident HPI: 06/15 Pt admitted to [facility] with infected L-TKA with chronic extensor rupture, [...] 01:00) 82 (JULY 01 07:00) 100 (JUNE 30:00) Resp Rate 16 (JULY 01:00) 16 (JUNE 30 23:00) 18 (JUNE 30:00) SBP H 145 (JULY 01:00) 120 (JUNE 30:00) H 145 (JUNE 30 19:00) DBP L 57 (JULY 01:) L 50 (JUNE 30:) L 57 (JULY 01:00) SpO2 97 (JULY 01:00) 97 (JULY 01:00) 100 (JUNE 30:) Intake & Output Totals Last 24 Hours [...] for the consult Prabhjot Devine PharmD PGY1 Hospice Office Coordinator [phone] documented in this encounter Plan of Treatment Not on file documented as of this encounter Visit Diagnoses Not on filedocumented in this encounter
--- OUTSIDE RECORDS SUMMARY | 2024-08-30 07:41 | XMS_ITS | Encounter Summary ---
Author Organization [employer] ([place], [place], [place], [place]) Address [address] [place] [address] Care Team Providers Care Golf Cart Attendant Name Role Phone Unavailable Primary Care Provider Unavailabl e Encounter Details Date Type Department Care Team (Late st Contact Info) Description 06/20/2019 Transcribed Document [facility] [place] Medicine [facility] [place] [address] ProviderMariela MD [address] [place] [address] Social History Tobacco Use Types Packs/Day Years [...]
--- OUTSIDE RECORDS SUMMARY | 2024-08-30 07:41 | XMS_ITS | Encounter Summary ---
Author Organization [employer] ([place], [place], [place], [place]) Address [address] [place] [address] Care Team Providers Care Head Charrer Name Role Phone Unavailable Primary Care Provider Unavailabl e Encounter Details Date Type Department Care Team (Late st Contact Info) Description 07/01/2019 Transcribed Document [facility] [place] Family Medicine [facility] [place] [address] ProviderMariela MD [address] [place] [address] Social History Tobacco Use Types Packs/Day [...] Conversion Note - Mariela Gates MD - 07/01/2019 10:09 PM CDT Patient: SOFIA GILL Age: 79 [...] 0.9% 50 mL 2 Gram, IV Piggyback, [id number] cyanocobalamin 1,000 mcg tab 5,000 mcg 5 [...] fluticasone 0.05% nasal spray 100 mcg 2 [place], Nostrils Both, BID magnesium hydroxide 8% liq [...] precautions sleep apnea precautions .stress ulcer prophylaxis. Electronically signed by Maureen Cornejo Conversion Housing Assistant Property Manager Cerner at 06/16/2022 8:25 PM CDT documented in this encounter Plan of Treatment Not on file documented as of this encounter Visit Diagnoses Not on filedocumented in this encounter
--- OUTSIDE RECORDS SUMMARY | 2024-08-30 07:41 | XMS_ITS | Encounter Summary ---
Author Organization [employer] ([place], [place], [place], [place]) Address [address] [place] [address] Care Team Providers Care Urologist Name Role Phone Unavailable Primary Care Provider Unavailabl e Encounter Details Date Type Department Care Team (Late st Contact Info) Description 06/18/2019 Transcribed Document [facility] [place] [address] [place] [address] ProviderMariela MD [address] [place], [place] [id number] Social History Tobacco Use Types Packs/Day Years [...]
--- OUTSIDE RECORDS SUMMARY | 2024-08-30 07:41 | XMS_ITS | Encounter Summary ---
Author Organization [employer] ([place], [place], [place], [place]) Address [address] [place] [address] Care Team Providers Care Log Buyer Name Role Phone Unavailable Primary Care Provider Unavailabl e Encounter Details Date Type Department Care Team (Late st Contact Info) Description 07/03/2019 Transcribed Document [facility] [place] [address] ProviderMariela MD [address] [place] [address] Social History Tobacco Use Types Packs/Day Years [...]
--- OUTSIDE RECORDS SUMMARY | 2024-08-30 07:41 | XMS_ITS | Encounter Summary ---
Author Organization [employer] ([place], [place], [place], [place]) Address [address] [place] [address] Care Team Providers Care Coding Manager Name Role Phone Unavailable Primary Care Provider Unavailabl e Encounter Details Date Type Department Care Team (Late st Contact Info) Description 06/19/2019 Transcribed Document [facility] [place] Family Medicine [address] [place] [address] ProviderMariela MD [address] [place], [place] [id number] Social History Tobacco Use Types Packs/Day Years [...] All Active Orders Reviewed : Yes Adrianna Ortiz RN - 06/19/2019 3:59 EDT documented in this encounter Plan of Treatment Not on file documented as of this encounter Visit Diagnoses Not on filedocumented in this encounter
--- OUTSIDE RECORDS SUMMARY | 2024-08-30 07:41 | XMS_ITS | Encounter Summary ---
Author Organization [employer] ([place], [place], [place], [place]) Address [address] [place] [address] Care Team Providers Care Button Sewer Hand Name Role Phone Unavailable Primary Care Provider Unavailabl e Encounter Details Date Type Department Care Team (Late st Contact Info) Description 08/23/2018 Transcribed Document [facility] [place] [facility] [place] [address] ProviderMariela MD [address] [place] [address] Social History Tobacco Use Types Packs/Day [...] Conversion Note - Mariela ProviderMD - 08/23/2018 9:00 AM CDT Pain [...]
--- OUTSIDE RECORDS SUMMARY | 2024-08-30 07:41 | XMS_ITS | Encounter Summary ---
Author Organization [employer] ([place], [place], [place], [place]) Address [address] [place] [address] Care Team Providers Care Laboratory Animal Care Veterinarian Name Role Phone Unavailable Primary Care Provider Unavailabl e Encounter Details Date Type Department Care Team (Late st Contact Info) Description 06/20/2019 Transcribed Document [facility] [place] Family Medicine [facility] [place] [address] ProviderMariela MD [address] [place] [address] Social History Tobacco Use Types [...] Description of Event : Notified by House Solar Manager that Dr Saenz would not be performing the scheduled knee amputation this AM (06/19) and he would be rescheduling for 06/20 on Wednesday and patient is allowed to eat at this time. Diet was modified. Adrianna Ortiz RN - 06/20/2019 0:40 EDT documented in this encounter Plan of Treatment Not on file documented as of this encounter Visit Diagnoses Not on filedocumented in this encounter
--- OUTSIDE RECORDS SUMMARY | 2024-08-30 07:41 | XMS_ITS | Encounter Summary ---
Author Organization [employer] ([place], [place], [place], [place]) Address [address] [place] [address] Care Team Providers Care Human Service Coordinator Name Role Phone Unavailable Primary Care Provider Unavailabl e Encounter Details Date Type Department Care Team (Late st Contact Info) Description 07/01/2019 Transcribed Document [facility] [place] Family Medicine [facility] [place] [address] ProviderMariela MD [address] [place], [place] [phone] Social History Tobacco Use Types Packs/Day Years [...]
--- OUTSIDE RECORDS SUMMARY | 2024-08-30 07:41 | XMS_ITS | Encounter Summary ---
Author Organization [employer] ([place], [place], [place], [place]) Address [address] [place] [address] Care Team Providers Care Bonderizer Operator Name Role Phone Unavailable Primary Care Provider Unavailabl e Encounter Details Date Type Department Care Team (Late st Contact Info) Description 07/14/2019 Transcribed Document [facility] [place] Family Medicine [facility] [place] [address] ProviderMariela MD [address] [place] [phone] Social History Tobacco Use Types Packs/Day Years [...] Conversion Note - Mariela Gates MD - 07/14/2019 6:01 PM CDT Patient: SOFIA GILL Age: 79 [...] 0.9% 100 mL 2 Gram, IV Piggyback, [id number] cyanocobalamin 1,000 mcg tab 5,000 mcg 5 [...] Oral, Q4H fluticasone 0.05% nasal spray 2 [place], Nostrils Both, BID magnesium hydroxide 8% liq [...] % 21.9 % Lymph # 1.56 x10(3)/uL Nicol[place] % 12.0 % HI Nicollet # 0.85 K/uL Eos % 6.2 % [...] precautions. Stress ulcer prophylaxis. Anticipate DC to long-term on Wednesday if stable. documented in this encounter Plan of Treatment Not on file documented as of this encounter Visit Diagnoses Not on filedocumented in this encounter
--- OUTSIDE RECORDS SUMMARY | 2024-08-30 07:41 | XMS_ITS | Encounter Summary ---
Author Organization [employer] ([place], [place], [place], [place]) Address [address] [place] [address] Care Team Providers Care Tourism Radio Presenter Name Role Phone Unavailable Primary Care Provider Unavailabl e Encounter Details Date Type Department Care Team (Late st Contact Info) Description 06/30/2019 Transcribed Document [facility] [place] [facility] [place] [address] ProviderMariela MD [address] [place] [address] Social History Tobacco Use Types Packs/Day [...] Conversion Note - Mariela ProviderMD - 06/30/2019 10:40 AM CDT Pain [...]
--- OUTSIDE RECORDS SUMMARY | 2024-08-30 07:41 | XMS_ITS | Encounter Summary ---
Author Organization [employer] ([place], [place], [place], [place]) Address [address] [place] [address] Care Team Providers Care Baseball Pitcher Name Role Phone Unavailable Primary Care Provider Unavailabl e Encounter Details Date Type Department Care Team (Late st Contact Info) Description 06/21/2019 Transcribed Document [facility] [place] Family Medicine [facility] [place] [address] ProviderMariela MD [facility] [place] [address] Social History Tobacco Use Types [...] Cerner Conversion Note - Mariela ProviderMD - 06/21/2019 11:56 AM CDT Patient: [...] 18) L 2.0 (JUN 16) Micro: [facility]: 06/15 [facility] Blood cultures positive for group B strep and 2/2 bottles SJE: 06/16 fluid aspiration of left knee shows 118,150 white blood cells, GPC 06/16 repeat blood cultures with Group B Strep 06/16 MRSA surveillance culture and pro/pending 06/16 Urine culture in process/pending Rad: Radiology Results (Last 48 hours) [id number] -- 06/16/2019 21:08 CR Knee 1 or [...] personally viewed, interpreted and dictated the examination. Ihbobby read and agree with the above final [...]
--- OUTSIDE RECORDS SUMMARY | 2024-08-30 07:41 | XMS_ITS | Encounter Summary ---
Author Organization [employer] ([place], [place], [place], [place]) Address [address] [place] [address] Care Team Providers Care Director Of Alumni Relations Name Role Phone Unavailable Primary Care Provider Unavailabl e Encounter Details Date Type Department Care Team (Late st Contact Info) Description 06/20/2019 Transcribed Document [facility] [place] Family Medicine [facility] [place] [address] ProviderMariela MD [address] [place] [phone] Social History Tobacco Use Types Packs/Day Years [...] Performed On: 06/20/2019 19:16 EDT by George Gimenez Rn-Enterostomal Central Line Checklist History and Physical on Chart : Yes Central Line Insertion [place] [facility] Insertion Start Date/Time : 06/20/2019 16:10 EDT Central Catheter Type : Power injection PICC Central Line Lot Number : [id number] Central Line Vessel Cannulated : Median basilic [...] procedures CL Time Out Additional Attendees : marilou garcia, dorina gimenez, rn 1% Lidocaine Amt Used as Anesthetic [...] SVC : Yes Nurse Notified Name : Marilou Garcia RN Gallivan, George Sierra Rn-Enterostomal - 06/20/2019 19:16 EDT Electronically signed by Chantal [facility] Conversion Shoe Folder Cerner at 06/16/2022 8:06 PM CDT documented in this encounter Plan of Treatment Not on file documented as of this encounter Visit Diagnoses Not on filedocumented in this encounter
--- OUTSIDE RECORDS SUMMARY | 2024-08-30 07:41 | XMS_ITS | Encounter Summary ---
Author Organization [employer] ([place], [place], [place], [place]) Address [address] [place] [address] Care Team Providers Care Technical Service Specialist Name Role Phone Unavailable Primary Care Provider Unavailabl e Encounter Details Date Type Department Care Team (Late st Contact Info) Description 06/19/2019 Transcribed Document [facility] [place] [facility] [place] [address] ProviderMariela MD [address] [place], [place] [phone] Social History Tobacco Use Types Packs/Day Years [...] Conversion Note - Mariela ProviderMD - 06/19/2019 3:52 PM CDT UM Authorization Entered On: 06/19/2019 15:52 EDT Performed On: 06/19/2019 15:52 EDT by TIESHA AQUINO RN-Utilization Review Primary Insurance Authorization Authorization and Policy Numbers : Insurance 1 Health Plan: [facility] MEDICARE ADVANTAGE Policy Number: [id number] Authorization Number: Insurance Primary Name : [facility] MEDICARE ADVANTAGE Policy Number: [id number] Authorization Status-Primary : Pending clinicals Reference Number-Primary : [id number] Authorized Service Begin Date-Primary : 06/16/2019 EDT Authorization Comments-Primary : [facility] auth pending per website Historical Authorization Comments-Primary : Comment 1: Clinicals faxed via Min (Michelle Jimenez Rn-Utilization Review 06/19/2019 09:50) Comment 2: Attempted auth on [facility] portal, message that notification cannot be completed online, Call number on back of card (Michelle Jimenez, Laxmi-Utilization Review 06/17/2019 10:02) TIESHA AQUINO RN-Utilization Review - 06/19/2019 15:52 EDT Electronically signed by [facility] Conversion Pediatrician Cerner at 06/16/2022 8:20 PM CDT documented in this encounter Plan of Treatment Not on file documented as of this encounter Visit Diagnoses Not on filedocumented in this encounter
--- OUTSIDE RECORDS SUMMARY | 2024-08-30 07:41 | XMS_ITS | Encounter Summary ---
Author Organization [employer] ([place], [place], [place], [place]) Address [address] [place] [address] Care Team Providers Care Change Agent Name Role Phone Unavailable Primary Care Provider Unavailabl e Encounter Details Date Type Department Care Team (Late st Contact Info) Description 07/01/2019 Transcribed Document [facility] [place] Family [place] [facility] [place] [address] ProviderMariela MD [address] [place] [address] Social History Tobacco Use Types Packs/Day Years [...] RN Intervention Information: acetaminophen-HYDROcodone Performed by Marisela Rangel, RN on 07/10/2019 14:57:00 EDT acetaminophen-HYDROcodone,1.5Tab Oral,Pain Pain Assessment Pain Assessment : Follow-up assessment Pain Scale Used : 0-10 Scale Pain Improved by Intervention : Yes Marisela Rangel RN - 07/10/2019 17:12 EDT documented in this encounter Plan of Treatment Not on file documented as of this encounter Visit Diagnoses Not on filedocumented in this encounter
--- OUTSIDE RECORDS SUMMARY | 2024-08-30 07:41 | XMS_ITS | Encounter Summary ---
Author Organization [employer] ([place], [place], [place], [place]) Address [address] [place] [address] Care Team Providers Care White Sourer Name Role Phone Unavailable Primary Care Provider Unavailabl e Encounter Details Date Type Department Care Team (Late st Contact Info) Description 06/20/2019 Transcribed Document [facility] [place] [facility] [place] [address] ProviderMariela MD [address] [place] [address] Social History Tobacco Use Types Packs/Day [...] Conversion Note - Mariela ProviderMD - 06/20/2019 11:49 AM CDT On Going Discharge Planning Entered On: 06/20/2019 11:50 EDT Performed On: 06/20/2019 11:49 EDT by Halima Tripathi RN-OPTICAL EFFECTS LINE UP PERSONcassandra architect Progress Note Discharge Arrangements : Patient Post-Acute [...] Attend Multidisciplinary Rounds? : No Halima Tripathi RN-OPTICAL EFFECTS LINE UP PERSON - 06/20/2019 11:49 EDT Narrative Progress Note [...] tomorrow morning. Will continue to follow..............MIKE Adam RN-Automobile Bumper Straightener - 06/19/19 11:35:19 Halima Tripathi RN-OPTICAL EFFECTS LINE UP PERSON - 06/20/2019 11:49 EDT Electronically signed by Maureen Cornejo Conversion Air Conditioning Technician Cerner at 06/16/2022 8:17 PM CDT documented in this encounter Plan of Treatment Not on file documented as of this encounter Visit Diagnoses Not on filedocumented in this encounter
--- OUTSIDE RECORDS SUMMARY | 2024-08-30 07:41 | XMS_ITS | Encounter Summary ---
Author Organization [employer] ([place], [place], [place], [place]) Address [address] [place] [address] Care Team Providers Care Metal Buildings Assembler Name Role Phone Unavailable Primary Care Provider Unavailabl e Encounter Details Date Type Department Care Team (Late st Contact Info) Description 07/14/2019 Transcribed Document [facility] [place] [facility] [place] [address] ProviderMariela MD [address] [place] [address] Social History Tobacco Use Types [...] - patient has accepted bed offer at [facility], she will be transported on WednesdayJuly 16 at 2pm by [employer] transport Confirmation # [id number]. She declined the bed offer at [facility]. Dr. Jaffe notified of discharge plan. Care Management Note Report : YOANNA ARAUJO RN - 07/13/19 14:37:44 Yoanna Araujo 07/13/2019 1400 received call from Ratna with [facility] offering patient a bed, Received call from Isabelle with [facility] she is looking at patient and needed a current height and weight. Still waiting to see if any other bed offers come through. I also sent referral to [facility]. YOANNA ARAUJO RN - 07/13/19 11:04:03 Yoanna Araujo 07/13/2019 1100 faxed out referral for placement for patient to [facility], [facility] and triology facilities. Awaiting call backs. СВЕТЛАНА WANG - 07/12/19 12:19:17 07/12/2019 Fax received from [facility] with approval for LTAC services with a request for updated discharge plans and clinical info to support needs if not discharged. Auth#[id number]. Clinical review or discharge summary to be faxed by 07/17/2019. YOANNA ARAUJO RN - 07/12/19 08:39:48 Yoanna Araujo 07/12/2019 0830 - faxed clinical review the [facility] at [phone] to request approval for extended ltac services. Auth#[id number], awaiting approval. YOANNA ARAUJO RN - 06/29/19 [...] health and she has been to the [facility] and [facility] in the past. She has the following equipment at home: wheel chair, walker, cane and shower chair. Her discharge plan is to go to rehab prior to returning home. PCP: Flavia MARQUEZ [address] [phone] Manager Hospitality: Dr. Shemar Barger [phone] Clemente Del Rio MD - Rheumatology - [address] [place] [address] Preferences: Home Health: [facility]: no preferences DME: [facility] - [address], [place] [address] Shelter: [facility] at [facility] facility: no preferences Will continue to monitor patient for anticipated discharge needs YOANNA ARAUJO RN - 06/29/19 08:30:20 Yoanna Araujo 06/29/2019 0830 received fax from [facility] with approval for extended ltac coverage with next clinical review due on 07/12/2019. Auth#[id number]. Will continue to follow for anticipated discharge needs. YOANNA ARAUJO RN - 06/28/19 08:35:06 Yoanna Araujo 06/28/2019 0830 Faxed clinical review to [facility] at to request approval for extended Ltac services. Auth#[id number]. Pending Approval. Documentation Status Complete : Yes YOANNA ARAUJO RN - 07/14/2019 15:38 EDT documented in this encounter Plan of Treatment Not on file documented as of this encounter Visit Diagnoses Not on filedocumented in this encounter
--- OUTSIDE RECORDS SUMMARY | 2024-08-30 07:41 | XMS_ITS | Encounter Summary ---
Author Organization [employer] ([place], [place], [place], [place]) Address [address] [place] [address] Care Team Providers Care Supply Controller Name Role Phone Unavailable Primary Care Provider Unavailabl e Encounter Details Date Type Department Care Team (Late st Contact Info) Description 07/03/2019 Transcribed Document [facility] [place] [address] [place] [address] ProviderMariela MD [address] [place], [place] [id number] Social History Tobacco Use Types Packs/Day Years [...] MANUEL CABRAL LPN - 07/03/2019 16:18 EDT documented in this encounter Plan of Treatment Not on file documented as of this encounter Visit Diagnoses Not on filedocumented in this encounter
--- OUTSIDE RECORDS SUMMARY | 2024-08-30 07:41 | XMS_ITS | Encounter Summary ---
Author Organization [employer] ([place], [place], [place], [place]) Address [address] [place] [address] Care Team Providers Care Lining Feller Blindstitch Name Role Phone Unavailable Primary Care Provider Unavailabl e Encounter Details Date Type Department Care Team (Late st Contact Info) Description 06/21/2019 Transcribed Document [facility] [place] Family Medicine On [facility] [place] [address] ProviderMariela MD [address] [place] [address] Social History Tobacco Use Types Packs/Day Years [...]
--- OUTSIDE RECORDS SUMMARY | 2024-08-30 07:41 | XMS_ITS | Encounter Summary ---
Author Organization [employer] ([place], [place], [place], [place]) Address [address] [place] [address] Care Team Providers Care Fuel Manager Name Role Phone Unavailable Primary Care Provider Unavailabl e Encounter Details Date Type Department Care Team (Late st Contact Info) Description 07/03/2019 Transcribed Document [facility] [place] [facility] [place] [address] ProviderMariela MD [address] [place] [address] Social History Tobacco Use Types [...] (immobilizer present), MASD gluteal cleft GI: LBM /, +BS Diet: regular + ensure BID Intakes: [...]
--- OUTSIDE RECORDS SUMMARY | 2024-08-30 07:41 | XMS_ITS | Encounter Summary ---
Author Organization [employer] ([place], [place], [place], [place]) Address [address] [place] [address] Care Team Providers Care Diversified Crops Supervisor Name Role Phone Unavailable Primary Care Provider Unavailabl e Encounter Details Date Type Department Care Team (Late st Contact Info) Description 06/19/2019 Transcribed Document [facility] [place] [address] ProviderMariela MD [address] [place], [place] [id number] Social History Tobacco Use Types Packs/Day Years [...] Conversion Note - Mariela ProviderMD - 06/19/2019 8:01 AM CDT UM Authorization Entered On: 06/19/2019 8:01 EDT Performed On: 06/19/2019 8:01 EDT by TIESHA AQUINO RN-Utilization Review Primary Insurance Authorization Authorization and Policy Numbers : Insurance 1 Health Plan: [facility] MEDICARE ADVANTAGE Policy Number: [id number] Authorization Number: Insurance Primary Name : [facility] MEDICARE ADVANTAGE Policy Number: [id number] Authorization Status-Primary : Pending clinicals Reference Number-Primary : [id number] Authorized Service Begin Date-Primary : 06/16/2019 EDT Historical Authorization Comments-Primary : Comment 1: Attempted auth on [facility] portal, message that notification cannot be completed online, Call number on back of card (Michelle Jimenez Rn-Utilization Review 06/17/2019 10:02) TIESHA AQUINO RN-Utilization Review - 06/19/2019 8:01 EDT Electronically signed by Chantal [facility] Conversion Nursery Supervisor Cerner at 06/16/2022 8:27 PM CDT documented in this encounter Plan of Treatment Not on file documented as of this encounter Visit Diagnoses Not on filedocumented in this encounter
--- OUTSIDE RECORDS SUMMARY | 2024-08-30 07:41 | XMS_ITS | Encounter Summary ---
Author Organization [employer] ([place], [place], [place], [place]) Address [address] [place] [address] Care Team Providers Care Percolator Operator Name Role Phone Unavailable Primary Care Provider Unavailabl e Encounter Details Date Type Department Care Team (Late st Contact Info) Description 06/20/2019 Transcribed Document [facility] [place] [address] [place] [address] ProviderMariela MD [address] [place], [place] [phone] Social History Tobacco Use Types Packs/Day Years [...] Reviewed : Yes Adrianna Ortiz RN - 06/20/2019 3:42 EDT documented in this encounter Plan of Treatment Not on file documented as of this encounter Visit Diagnoses Not on filedocumented in this encounter
--- OUTSIDE RECORDS SUMMARY | 2024-08-30 07:41 | XMS_ITS | Encounter Summary ---
Author Organization [employer] ([place], [place], [place], [place]) Address [address] [place] [address] Care Team Providers Care Logistics Associate Name Role Phone Unavailable Primary Care Provider Unavailabl e Encounter Details Date Type Department Care Team (Late st Contact Info) Description 08/24/2018 Transcribed Document [facility] [place] [facility] [place] [address] ProviderMariela MD [address] [place] [address] Social History Tobacco Use Types Packs/Day [...] Note - Mariela ProviderMD - 08/24/2018 9:00 PM CDT Pain [...] version of the form. Electronically signed by Nikunj Cornejoh Conversion Disease Intervention Specialist Cerner at 06/16/2022 8:12 PM CDT documented in this encounter Plan of Treatment Not on file documented as of this encounter Visit Diagnoses Not on filedocumented in this encounter
--- OUTSIDE RECORDS SUMMARY | 2024-08-30 07:41 | XMS_ITS | Encounter Summary ---
Author Organization [employer] ([place], [place], [place], [place]) Address [address] [place] [address] Care Team Providers Care Political Theory Professor Name Role Phone Unavailable Primary Care Provider Unavailabl e Encounter Details Date Type Department Care Team (Late st Contact Info) Description 07/02/2019 Transcribed Document [facility] [place] [facility] [address] ProviderMariela MD [address] [place] [address] Social History Tobacco Use Types Packs/Day [...] Conversion Note - Mariela Gates MD - 07/02/2019 8:38 PM CDT Patient: SOFIA GILL Age: 79 [...] 0.9% 50 mL 2 Gram, IV Piggyback, [id number] cyanocobalamin 1,000 mcg tab 5,000 mcg 5 [...] fluticasone 0.05% nasal spray 100 mcg 2 [place], Nostrils Both, BID magnesium hydroxide 8% liq [...]
--- OUTSIDE RECORDS SUMMARY | 2024-08-30 07:41 | XMS_ITS | Encounter Summary ---
Author Organization [employer] ([place], [place], [place], [place]) Address [address] [place] [address] Care Team Providers Care Ocean Export Coordinator Name Role Phone Unavailable Primary Care Provider Unavailabl e Encounter Details Date Type Department Care Team (Late st Contact Info) Description 07/14/2019 Transcribed Document [facility] [place] [facility] [place] [address] ProviderMariela MD [address] [place] [address] Social History Tobacco Use Types Packs/Day Years [...] Note - Mariela ProviderMD - 07/14/2019 9:00 PM CDT Pain [...]
--- OUTSIDE RECORDS SUMMARY | 2024-08-30 07:41 | XMS_ITS | Encounter Summary ---
Author Organization [employer] ([place], [place], [place], [place]) Address [address] [place] [address] Care Team Providers Care Electrical Project Engineer Name Role Phone Unavailable Primary Care Provider Unavailabl e Encounter Details Date Type Department Care Team (Late st Contact Info) Description 06/19/2019 Transcribed Document [facility] [place] [facility] [place] [address] ProviderMariela MD [address] [place] [address] Social History Tobacco Use Types [...] Conversion Note - Mariela ProviderMD - 06/19/2019 12:05 PM CDT Patient: [...] Daily fluticasone 50 mcg/inh nasal spray, 2 [place], Nostrils Both, BID, PRN gabapentin, 300 mg= [...] BID fluticasone 50 mcg/inh nasal spray, 2 [place], Nostrils Both, BID, PRN Lasix 40 mg [...] FEMORAL W SYNTH SUB, CEMENT, OPEN (10/26/2016), [place] filter, lap band gastric bypass, left knee ORIF, left shoulder ORIF, left TKA, left TSA, revision left TKA, right RCR, x 2. Allergies amLODIPine valdecoxib Bextra (Itching) Latex (Itching) Mobic (Itching) Naprosyn (Itching) etodolac (Itching) penicillin (Shortness of breath) phentermine (unknown reaction) sulfa drugs (Itching) Electronically signed by Chantal [facility] Conversion Clay Processing Labourer Cerner at 06/16/2022 8:26 PM CDT documented in this encounter Plan of Treatment Not on file documented as of this encounter Visit Diagnoses Not on filedocumented in this encounter
--- OUTSIDE RECORDS SUMMARY | 2024-08-30 07:41 | XMS_ITS | Encounter Summary ---
Author Organization [employer] ([place], [place], [place], [place]) Address [address] [place] [address] Care Team Providers Care Patient Case Manager Name Role Phone Unavailable Primary Care Provider Unavailabl e Encounter Details Date Type Department Care Team (Late st Contact Info) Description 08/24/2018 Transcribed Document [facility] [place] [facility] [place] [address] ProviderMariela MD [address] [place] [phone] Social History Tobacco Use Types Packs/Day Years [...] Conversion Note - Mariela ProviderMD - 08/24/2018 8:02 AM CDT Final Discharge Planning Entered On: 08/24/2018 8:03 EDT Performed On: 08/24/2018 8:02 EDT by MARY MCGRAW Care Management-Bobbin Cleaner Hand Final Discharge Planning Discharge Arrangements : Patient Post-Acute Information Patient Name: SOFIA BARLOW Gender: Female : 44 Age: 78 Years No Post-Acute Placement(s) Listed No Post-Acute Service(s) Listed No [place] Referral(s) Listed Transportation Needs : Family/Friend Discharge To Care Management : SNF with Medicare Certification-03 MARY MCGRAW Care Management-Bobbin Cleaner Hand - 08/24/2018 8:02 EDT Final Narrative Note Final Narrative Note : Insurance approval obtained for pt to go to [facility] today 08/24 MARY MCGRAW, Care Management-Bobbin Cleaner Hand - 08/24/2018 8:02 EDT Electronically signed by Maureen Cornejo Conversion Inspector Clip On Sunglasses Cerner at 06/16/2022 8:04 PM CDT documented in this encounter Plan of Treatment Not on file documented as of this encounter Visit Diagnoses Not on filedocumented in this encounter
--- OUTSIDE RECORDS SUMMARY | 2024-08-30 07:41 | XMS_ITS | Encounter Summary ---
Author Organization [employer] ([place], [place], [place], [place]) Address [address] [place] [address] Care Team Providers Care Cable Splicer Apprentice Name Role Phone Unavailable Primary Care Provider Unavailabl e Encounter Details Date Type Department Care Team (Late st Contact Info) Description 06/21/2019 Transcribed Document [facility] [place] [address] ProviderMariela MD [address] [place] [address] Social History Tobacco Use Types Packs/Day [...] Conversion Note - Mariela ProviderMD - 06/21/2019 4:35 PM CDT On Going Discharge Planning Entered On: 06/21/2019 16:36 EDT Performed On: 06/21/2019 16:35 EDT by MIKE FRIEDMAN RN-Mental Health WorkerComputer Aided Design Designer Progress Note Discharge Arrangements : Patient Post-Acute [...] Pt/Fam/Support Person : Other: N/A MIKE FRIEDMAN RN-Mental Health Worker - 06/21/2019 16:35 EDT Narrative Progress Note Narrative Progress Note : Was planning for AKA, now patient will undergo a total joint revision with I&D. 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 Surgery scheduled for today................MIKE Adam RN-Mental Health Worker - 06/21/19 10:06:05 No MDR this AM with provider. Patient with low-grade fever this AM and throughout the night. COTY was rescheduled for 06/20 for this reason. CM will continue to follow. Halima Tripathi RN-ECHOCARDIOLOGIST - 06/20/19 11:50:51 Patient becoming more agitated and confused, refusing to wear oxygen. Patient now on CPAP, WBC increased, BC x2 positive for group b Strep. Dr Saenz to perform AKA tomorrow morning. Will continue to follow..............MIKE Adam RN-Mental Health Worker - 06/19/19 11:35:19 MIKE FRIEDMAN RN-Mental Health Worker - 06/21/2019 16:35 EDT Electronically signed by Maureen Cornejo Conversion Electron Beam Photo Mask Maker Cerner at 06/16/2022 8:05 PM CDT documented in this encounter Plan of Treatment Not on file documented as of this encounter Visit Diagnoses Not on filedocumented in this encounter
--- OUTSIDE RECORDS SUMMARY | 2024-08-30 07:41 | XMS_ITS | Encounter Summary ---
Author Organization [employer] ([place], [place], [place], [place]) Address [address] [place] [address] Care Team Providers Care Drainage Engineer Name Role Phone Unavailable Primary Care Provider Unavailabl e Encounter Details Date Type Department Care Team (Late st Contact Info) Description 06/21/2019 Transcribed Document [facility] [place] [facility] [place] [address] ProviderMariela MD [address] [place] [address] Social History Tobacco Use Types Packs/Day [...] floor Ramp : Yes FELTON RUSH OTR/L - 06/23/2019 11:27 EDT Prior LOF Bathing, OT : Independent Prior LOF Bed Mobility : Independent Prior LOF Upper Body Dressing, OT : Independent Prior LOF Lower Body Dressing, OT : Independent Prior LOF Toileting : Independent Prior LOF Transfer : Independent Prior LOF Grooming, OT : Independent FELTON RUSH OTR/L - 06/23/2019 11:27 EDT Prior LOF Assist with [...] UE Strength Comment : Grossly 4/5 Hand Cruise Staff Member Test : Min decreased bilaterally Fine Motor Coordination Impaired : No FELTON RUSH OTR/L - 06/23/2019 11:27 EDT Self Care/Home Management, OT Lower Body Dressing Assist Level, OT : Assist, maximal Lower Body Dressing Comment, OT : Donning socks FELTON RUSH OTR/L 06/23/2019 11:27 EDT Functional Mobility Mobility Grid Supine to Sit : Rehab Moderate assistance Sit to Stand : Rehab Moderate assistance (Comment: x 2 [FELTON RUSH OTR/L 06/23/2019 11:27 EDT] ) Bed to Chair : Rehab Maximal assistance (Comment: x 2 [FELTON RUSH OTR/L - 06/23/2019 11:27 EDT] ) Stand to Sit : Rehab Maximal assistance (Comment: x 2 [FELTON RUSH OTR/L - 06/23/2019 11:27 EDT] ) FELTON RUSH MARY/L 06/23/2019 11:27 EDT Functional MobilityComment : Hip spica/knee brace on throughout eval FELTON RUSH MARY/L 06/23/2019 11:27 EDT Activity Tolerance, OT Activity Comment : F act. tolerance FELTON RUSH MARY/L 06/23/2019 11:27 EDT Neurological/Sensory Light Touch Response : Intact FELTON RUSH MARY/Bartolo 06/23/2019 11:27 EDT Cognition Assessment, OT Orientation : Oriented x 4 Cognition Assessment, OT : Intact FELTON RUSH MARY/Bartolo 06/23/2019 11:27 EDT Education OT Occupational Therapy Education Grid Activity of Daily Living Training : Verbalizes understanding Functional Mobility Training : Verbalizes understanding, Returns demonstration Home Safety : Verbalizes understanding Precaution/Contraindication : Verbalizes understanding Role of Occupational Therapy : Verbalizes understanding FELTON RUSH MARY/Bartolo 06/23/2019 11:27 EDT Teaching/Learning Assessment Barriers To [...] reeducation, Safety education, Therapeutic activities, Therapeutic exercises RUSH, FELTON, OTR/Bartolo - 06/23/2019 11:27 EDT Skilled Nursing Goals, OT Other LTG Grid Goal #1 [...] the text rendition version of the form. [place] OT Charges OT Selfcare/Hm Mgmt Ea 15 Min : 2 OT Eval Moderate Complexity : 1 FELTON RUSH OTR/Bartolo - 06/23/2019 11:27 EDT documented in this encounter Plan of Treatment Not on file documented as of this encounter Visit Diagnoses Not on filedocumented in this encounter
--- OUTSIDE RECORDS SUMMARY | 2024-08-30 07:41 | XMS_ITS | Encounter Summary ---
Author Organization [employer] ([place], [place], [place], [place]) Address [address] [place] [address] Care Team Providers Care Rigging Slinger Name Role Phone Unavailable Primary Care Provider Unavailabl e Encounter Details Date Type Department Care Team (Late st Contact Info) Description 08/24/2018 Transcribed Document [facility] [place] [address] [place] [address] ProviderMariela MD [address] [place], [place] [phone] Social History Tobacco Use Types Packs/Day Years [...] Nishi Osuna RN - 08/24/2018 4:21 EDT documented in this encounter Plan of Treatment Not on file documented as of this encounter Visit Diagnoses Not on filedocumented in this encounter
--- OUTSIDE RECORDS SUMMARY | 2024-08-30 07:41 | XMS_ITS | Encounter Summary ---
Author Organization [employer] ([place], [place], [place], [place]) Address [address] [place] [address] Care Team Providers Care Tailing Machine Operator Name Role Phone Unavailable Primary Care Provider Unavailabl e Encounter Details Date Type Department Care Team (Late st Contact Info) Description 06/18/2019 Transcribed Document [facility] [place] [facility] [place] [address] ProviderMariela MD [address] [place] [address] Social History Tobacco Use Types Packs/Day Years [...] Historical ProviderMD - 06/18/2019 2:00 AM CDT Paper Inserter Details Entered On: 06/18/2019 6:45 EDT Performed [...] Ophelia Ling RN - 06/18/2019 6:45 EDT Electronically signed by Chantal [facility] Conversion Electrical Engineering Draftsperson Cerner at 06/16/2022 8:23 PM CDT documented in this encounter Plan of Treatment Not on file documented as of this encounter Visit Diagnoses Not on filedocumented in this encounter
--- OUTSIDE RECORDS SUMMARY | 2024-08-30 07:41 | XMS_ITS | Encounter Summary ---
Author Organization [employer] ([place], [place], [place], [place]) Address [address] [place] [address] Care Team Providers Care Success Coach Name Role Phone Unavailable Primary Care Provider Unavailabl e Encounter Details Date Type Department Care Team (Late st Contact Info) Description 06/20/2019 Transcribed Document [facility] [place] [facility] [place] [address] ProviderMariela MD [address] [place] [address] Social History Tobacco Use Types Packs/Day [...] Conversion Note - Mariela Gates MD - 06/20/2019 6:22 PM CDT Patient: SOFIA GILL Age: 79 [...] 0.9% 50 mL 2 Gram, IV Piggyback, [id number] cyanocobalamin 1,000 mcg tab 5,000 mcg 5 [...] Oral, Q4H fluticasone 0.05% nasal spray 2 [place], Nostrils Both, BID gabapentin 300 mg cap [...] % LOW ALYC # 1 K/uL NA [place] Percent Man 7 % HI RBC Morphology [...] % LOW Lymph # 1.12 K/uL LOW [place] % 6.6 % [place] # 1.64 K/uL HI Eos % 0.1 [...] after [place] for surgical intervention in AM.. Electronically signed by Maureen Cornejo Conversion Assembler Aircraft Power Plant Cerner at 06/16/2022 8:13 PM CDT documented in this encounter Plan of Treatment Not on file documented as of this encounter Visit Diagnoses Not on filedocumented in this encounter
--- OUTSIDE RECORDS SUMMARY | 2024-08-30 07:41 | XMS_ITS | Encounter Summary ---
Author Organization [employer] ([place], [place], [place], [place]) Address [address] [place] [address] Care Team Providers Care Stepdown Nurse Name Role Phone Unavailable Primary Care Provider Unavailabl e Encounter Details Date Type Department Care Team (Late st Contact Info) Description 08/24/2018 Transcribed Document [facility] [place] [facility] [place] [address] ProviderMariela MD [address] [place], [place] [phone] Social History Tobacco Use Types Packs/Day Years [...] Spiritual Care Spiritual Care Referred by : Nuclear Physics Professor initiated Reason for Visit : Initial Ministry Provided to : Patient Intervention/Comment/Summary Points : Pt had total right kne repalcement surgery on Wednesday - Aug 22. Pt stated that she os going to [facility] tomorrow for rehab. Pt shared that her surgery went well. Nuclear Physics Professor prayed for pt's rehab an dhealing of pt's right knee. ADELAIDE JJ CHAPLAIN - 08/24/2018 20:40 EDT Electronically signed by Chantal [facility] Conversion Preparation Center Coordinator Cerner at 06/16/2022 8:22 PM CDT documented in this encounter Plan of Treatment Not on file documented as of this encounter Visit Diagnoses Not on filedocumented in this encounter
--- OUTSIDE RECORDS SUMMARY | 2024-08-30 07:41 | XMS_ITS ---
Author Organization [facility] (Divested) Care Team Providers Care Warehouse Supervisor 3Rd Shift Name Role Phone Dee Rosenberg Unavailable Unavailable Zheng Morrow Unavailable Unavailable Chung Buck Unavailable Unavailable Kat Cordoba Unavailable Unavailable Halima Aranda Unavailable Unavailable Allergies and adverse reactions Code CodeSystem Substance Reaction Severity StartDate Concern Status 140972507 SNOMED CT Sulfa Antibiotics Unknown 07/19/2019 active 8152 RXNORM Phentermine Unknown 07/19/2019 active 7984 RXNORM Penicillin Unknown 07/19/2019 active Naprosyn Unknown 07/19/2019 active Mobic Unknown 07/19/2019 active LATEX Unknown 07/19/2019 active 86949 RXNORM Etodolac Unknown 07/19/2019 active Bextra Unknown 07/19/2019 active 99541 RXNORM Amlodipine Unknown 07/19/2019 active Care Team Name Role Address Phone Organization Dates Zheng Morrow PCP [address], [place], [address], [place] (Office): : [facility] (Divested) 07/19/2019 - 10/28/2019 Dee Rosenberg [address] [place], [address], [facility] (Office): : [facility] (Divested) 07/19/2019 - 10/28/2019 Chung Buck [address] [place] [address], [address], [place] (Office): : [facility] (Divested) 07/19/2019 - 10/28/[address] Kat Cordoba [address] [place] [address], [address], [facility] (Office): : [facility] (Divested) 07/19/2019 - 10/28/[address], [place], [address], [place] (Office): [facility] (Divested) 07/19/2019 - 10/28/2019 Immunizations Immunization Status [...] 1 BODY MASS INDEX [BMI]40.0-44.9, ADULT 07/19/[address] active 2 CELLULITIS OF LEFT LOWER LIMB 07/19/[address] active 3 DEPENDENCE ON SUPPLEMENTAL OXYGEN 07/19/1907/21/[address] completed 4 DIFFICULTY IN WALKING, NOT ELSEWHERE CLASSIFIED 07/19/[address] active 5 ESSENTIAL (PRIMARY) HYPERTENSION 07/19/[address] active 6 GASTRO-ESOPHAGEA L REFLUX DISEASE WITHOUT ESOPHAGITIS 07/19/[address] active 7 HYPERLIPIDEMIA, UNSPECIFIED 07/19/[address] active 8 HYPOTHYROIDISM, UNSPECIFIED 07/19/[address] active 9 INFECTION AND INFLAMMATORY REACTION DUE TO INTERNAL LEFT KNEE PROSTHESIS, SUBSEQUENT ENCOUNTER 07/19/[address] active 10 LONG-TERM (CURRENT) USE OF ANTIBIOTICS 07/19/[address] active 11 MUSCLE WEAKNESS (GENERALIZED) 07/19/[address] active 12 NEED FOR ASSISTANCE WITH PERSONAL CARE 07/19/[address] active 13 PAIN IN LEFT KNEE 07/19/[address] active 14 POLYOSTEOARTHRIT IS, UNSPECIFIED 07/19/[address] active 15 PRESENCE OF LEFT ARTIFICIAL KNEE JOINT 07/19/[address] active 16 SEVERE SEPSIS WITHOUT SEPTIC SHOCK 07/19/[address] active 17 STREPTOCOCCUS, GROUP B, THE CAUSE OF DISEASES CLASSIFIED ELSEWHERE 07/19/[address] active 18 UNSPECIFIED PROTEIN-CALORIE MALNUTRITION 07/19/[address] active 19 VENOUS INSUFFICIENCY (CHRONIC) (PERIPHERAL) 07/19/[address] active Reason for Referral No Reasons for Referral Entered Social History Social History Observation Description Start Date End Date Code Code System Current Smoking Status Tobacco smoking consumption unknown 987922157 SNOMED CT Sex Assigned At Female 1940 23135-5 [facility] Gender Identity Vital Signs Code Code System Vitals Name Values and Units Timing Information 56712-7 [facility] Pain Level Value=0.0 10/28/2019 8462-4 [facility] Blood Pressure-Diastolic Value=78 Un its=mmHg 10/28/2019 8480-6 [facility] Blood Pressure-Systolic Ssgbd=113 Un its=mmHg 10/28/2019 8310-5 [facility] Body Temperature Value=97.4 Units= F 10/28/2019 8867-4 [facility] Heart rate Value=73.0 Units=/min 42474-2 [facility] O2 % BldC Oximetry Value=96.0 Units= % 10/28/2019 9279-1 [facility] Respiratory Rate Value=16.0 Units=/m in 10/25/2019 70795-5 [facility] Weight Jcmzt=953.8 Units=Lbs 07/2019 8302-2 [facility] Height Value=57.0 Units=Inches 07/19/2019
--- OUTSIDE RECORDS SUMMARY | 2024-08-30 07:41 | XMS_ITS | Encounter Summary ---
Author Organization [employer] ([place], [place], [place], [place]) Address [address] [place] [address] Care Team Providers Care Education General Manager Name Role Phone Unavailable Primary Care Provider Unavailabl e Encounter Details Date Type Department Care Team (Late st Contact Info) Description 07/14/2019 Transcribed Document [facility] [place] [address] ProviderMariela MD [address] [place] [address] Social History Tobacco Use Types Packs/Day Years [...]
--- OUTSIDE RECORDS SUMMARY | 2024-08-30 07:41 | XMS_ITS | Encounter Summary ---
Author Organization [employer] ([place], [place], [place], [place]) Address [address] [place] [address] Care Team Providers Care Appliance Technician Name Role Phone Unavailable Primary Care Provider Unavailabl e Encounter Details Date Type Department Care Team (Late st Contact Info) Description 06/30/2019 Transcribed Document [facility] [place] Family Medicine [facility] [place] [address] ProviderMariela MD [facility] [place] [address] Social History Tobacco Use Types [...] Conversion Note - Mariela ProviderMD - 06/30/2019 5:05 PM CDT Patient: [...] Resp Rate 16 (JUNE 29 16:00) 16 (MAY 01 07:00) 18 (JUN 28 19:00) SBP 108 (JUNE 29 16:00) 108 (JUNE 29:) H 148 (JUN 28 23:00) DBP L 50 (JUNE 29 16:) L 47 (JUNE 29 07:00) L 59 (JUN 28 23:00) MAP 64 (JUNE 29 16:00) 64 (JUNE 29:00) 66 (JUN 28 20:00) SpO2 96 (JUNE [...] 26) ALB L 2.4 (JUN 26) Micro: [facility]: 06/15 [facility] Blood cultures [...]
--- OUTSIDE RECORDS SUMMARY | 2024-08-30 07:41 | XMS_ITS | Encounter Summary ---
Author Organization [employer] ([place], [place], [place], [place]) Address [address] [place] [address] Care Team Providers Care Water Resource Project Manager Name Role Phone Unavailable Primary Care Provider Unavailabl e Encounter Details Date Type Department Care Team (Late st Contact Info) Description 08/23/2018 Transcribed Document [facility] [place] Family Medicine [facility] [place] [address] ProviderMariela MD [address] [place] [address] Social History Tobacco Use Types Packs/Day [...] Note - Mariela ProviderMD - 08/23/2018 9:00 PM CDT Pain [...]
--- OUTSIDE RECORDS SUMMARY | 2024-08-30 07:41 | XMS_ITS | Encounter Summary ---
Author Organization [employer] ([place], [place], [place], [place]) Address [address] [place] [address] Care Team Providers Care Taproom Attendant Name Role Phone Unavailable Primary Care Provider Unavailabl e Encounter Details Date Type Department Care Team (Late st Contact Info) Description 08/24/2018 Transcribed Document [facility] [place] [facility] [place] [address] ProviderMariela MD [address] [place] [address] Social History Tobacco Use Types Packs/Day Years [...] Historical ProviderMD - 08/24/2018 2:00 AM CDT Vp Compliance Details Entered On: 08/24/2018 0:59 EDT Performed [...] Nishi Osuna RN - 08/24/2018 0:59 EDT Electronically signed by Chantal [facility] Conversion Resource Specialist Cerner at 06/16/2022 8:18 PM CDT documented in this encounter Plan of Treatment Not on file documented as of this encounter Visit Diagnoses Not on filedocumented in this encounter
--- OUTSIDE RECORDS SUMMARY | 2024-08-30 07:41 | XMS_ITS | Encounter Summary ---
Author Organization [employer] ([place], [place], [place], [place]) Address [address] [place] [address] Care Team Providers Care Laundry Washer Name Role Phone Unavailable Primary Care Provider Unavailabl e Encounter Details Date Type Department Care Team (Late st Contact Info) Description 06/20/2019 Transcribed Document [facility] [place] [facility] [place] [address] ProviderMariela MD [address] [place], [place] [phone] Social History Tobacco Use Types Packs/Day Years [...] Conversion Note - Mariela ProviderMD - 06/20/2019 12:51 PM CDT UM Authorization Entered On: 06/20/2019 12:52 EDT Performed On: 06/20/2019 12:51 EDT by TIESHA AQUINO RN-Utilization Review Primary Insurance Authorization Authorization and Policy Numbers : Insurance 1 Health Plan: [facility] MEDICARE ADVANTAGE Policy Number: [id number] Authorization Number: Insurance Primary Name : [facility] MEDICARE ADVANTAGE Policy Number: [id number] Authorization Status-Primary : Admit approved Reference Number-Primary : [id number] Authorization Number-Primary : [id number] Number of Days Authorized-Primary : 10 Day(s) Authorized Service Begin Date-Primary : 06/16/2019 EDT Authorized Service End Date-Primary : 06/26/2019 EDT Authorization Comments-Primary : [facility] approved per fax for 11 days Historical Authorization Comments-Primary : Comment 1: [facility] auth pending per website (TIESHA AQUINO RN-Utilization Review 06/19/2019 15:52) Comment 2: Clinicals faxed via [employer] (Michelle Jimenez Rn-Utilization Review 06/19/2019 09:50) Comment 3: Attempted auth on [facility] portal, message that notification cannot be completed online, Call number on back of card (Michelle Jimenez Rn-Utilization Review 06/17/2019 10:02) TIESHA AQUINO RN-Utilization Review - 06/20/2019 12:51 EDT Electronically signed by Maureen Cornejo Conversion Outdoor Advertising Leasing Agent Cerner at 06/16/2022 8:18 PM CDT documented in this encounter Plan of Treatment Not on file documented as of this encounter Visit Diagnoses Not on filedocumented in this encounter
--- OUTSIDE RECORDS SUMMARY | 2024-08-30 07:41 | XMS_ITS | Encounter Summary ---
Author Organization [employer] ([place], [place], [place], [place]) Address [address] [place] [address] Care Team Providers Care Offbearer Name Role Phone Unavailable Primary Care Provider Unavailabl e Encounter Details Date Type Department Care Team (Late st Contact Info) Description 07/01/2019 Transcribed Document [facility] [place] [facility] [place] [address] ProviderMariela MD [address] [place], [place] [id number] Social History Tobacco Use Types Packs/Day Years [...] Historical ProviderMD - 07/01/2019 2:00 AM CDT Independent Video Producer Details Entered On: 07/01/2019 0:58 EDT Performed [...] - 07/01/2019 0:58 EDT Electronically signed by Chantal [facility] Conversion Heel Washer Stringing Machine Operator Cerner at 06/16/2022 8:27 PM CDT documented in this encounter Plan of Treatment Not on file documented as of this encounter Visit Diagnoses Not on filedocumented in this encounter
--- OUTSIDE RECORDS SUMMARY | 2024-08-30 07:41 | XMS_ITS | Encounter Summary ---
Author Organization [employer] ([place], [place], [place], [place]) Address [address] [place] [address] Care Team Providers Care Machine Striper Name Role Phone Unavailable Primary Care Provider Unavailabl e Encounter Details Date Type Department Care Team (Late st Contact Info) Description 06/30/2019 Transcribed Document [facility] [place] [address] ProviderMariela MD [address] [place] [id number] Social History Tobacco Use Types Packs/Day Years [...] Conversion Note - Mariela ProviderMD - 06/30/2019 8:04 AM CDT Interdisciplinary [...] : 06/28/2019 EDT Interdisciplinary Rounds Participants : manager of radiology, Dietitian, Occupational Therapist, Pastoral care, Pharmacist, Physical [...] 7 meals LBM 06/25 Signed By: Daniella Hunt Dietkyle PT Interdisciplinary Rounds Note 09:26:00 Patient evaluated 06/26; wearing orthotic/brace left hip to ankle at all times, WBAT. Mod assist x 2 to EOB and mod assist x 2 sit to stand with Rwx, transfer to chair. Signed By: OSKAR MARTÍNEZ, KANNAN OT Interdisciplinary Rounds Note 11:22:00 OT evaled pt 06/26. Pt motivated and participating. MinAx2 bed to chair. Signed By: PATTY OWENS OTR/L Pharmacist Interdisciplinary Rounds Note 10:09:00 Patient on Ceftriaxone for left TKR sepsis. Clarified patient's penicillin allergy as not anaphylactic and has tolerated CTX in past. Signed By: MASSIEL HENDERSON, PharmD, BCPS WOCN Interdisciplinary Rounds Note 14:40:00 06/27: pt with MASD to gluteal cleft and left knee in Ckqzecqhv-Ezvpkj-Geyc Abnormality: Knee Left on 06/28/2019 14:37 by [...]
--- OUTSIDE RECORDS SUMMARY | 2024-08-30 07:41 | XMS_ITS | Encounter Summary ---
Author Organization [employer] ([place], [place], [place], [place]) Address [address] [place] [address] Care Team Providers Care Tape Edge Machine Operator Name Role Phone Unavailable Primary Care Provider Unavailabl e Encounter Details Date Type Department Care Team (Late st Contact Info) Description 07/13/2019 Transcribed Document [facility] [place] [facility] [address] ProviderMariela MD [address] [place] [address] Social History Tobacco Use Types Packs/Day [...] : 07/12/2019 EDT Interdisciplinary Rounds Participants : night manager, Dietitian, Pastoral care, Pharmacist, Other: WOCN [...] 2 for DVT prophylaxis only. Signed By: MASSIEL HENDERSON PharmD, BCPS СВЕТЛАНА WANG - 07/13/2019 12:12 EDT Electronically signed by Maureen Cornejo Conversion Manager Of Employee Relations Cerner at 06/16/2022 8:29 PM CDT documented in this encounter Plan of Treatment Not on file documented as of this encounter Visit Diagnoses Not on filedocumented in this encounter
--- OUTSIDE RECORDS SUMMARY | 2024-08-30 07:41 | XMS_ITS | Encounter Summary ---
Author Organization [employer] ([place], [place], [place], [place]) Address [address] [place] [address] Care Team Providers Care Supervisor Industrial Garment Name Role Phone Unavailable Primary Care Provider Unavailabl e Encounter Details Date Type Department Care Team (Late st Contact Info) Description 06/19/2019 Transcribed Document [facility] [place] Family [place] [facility] [place] [address] ProviderMariela MD [address] [place] [address] Social History Tobacco Use Types Packs/Day Years [...] Historical ProviderMD - 06/19/2019 2:00 AM CDT Telephone Service Adviser Details Entered On: 06/19/2019 2:05 EDT Performed [...]
--- OUTSIDE RECORDS SUMMARY | 2024-08-30 07:41 | XMS_ITS | Encounter Summary ---
Author Organization [employer] ([place], [place], [place], [place]) Address [address] [place] [address] Care Team Providers Care Director Data Name Role Phone Unavailable Primary Care Provider Unavailabl e Encounter Details Date Type Department Care Team (Late st Contact Info) Description 06/19/2019 Transcribed Document [facility] [place] [facility] [place] [address] ProviderMariela MD [address] [place] [phone] Social History Tobacco Use Types Packs/Day Years Used Date Smoking Tobacco: Never Assessed Comments Unknown Sex and Gender Information Value Date Recorded Sex Assigned at Female 09/02/2021 8:57 PM CDT Legal Sex Female 6:58 PM CDT Gender Identity Female 09/02/2021 8:57 PM CDT Sexual Orientation Not on file documented as of this encounter Miscellaneous Notes * Min Conversion Note - Mariela Gates MD - 06/19/2019 9:50 AM CDT UM Authorization Entered On: 06/19/2019 9:50 EDT Performed On: 06/19/2019 9:50 EDT by Michelle Jimenez Rn-Utilization Review Primary Insurance Authorization Authorization and Policy Numbers : Insurance 1 Health Plan: [facility] MEDICARE ADVANTAGE Policy Number: [id number] Authorization Number: Insurance Primary Name : [facility] MEDICARE ADVANTAGE Policy Number: [id number] Authorization Status-Primary : Pending clinicals Reference Number-Primary : [id number] Authorized Service Begin Date-Primary : 06/16/2019 EDT Authorization Comments-Primary : Clinicals faxed via Min Historical Authorization Comments-Primary : Comment 1: Attempted auth on [facility] portal, message that notification cannot be completed online, Call number on back of card (Michelle Jimenez Rn-Utilization Review 06/17/2019 10:02) Michelle Jimenez Rn-Utilization Review - 06/19/2019 9:50 EDT Electronically signed by Maureen Cornejo Conversion Manager Supply Chain Planning Cerner at 06/16/2022 8:26 PM CDT documented in this encounter Plan of Treatment Not on file documented as of this encounter Visit Diagnoses Not on filedocumented in this encounter
--- OUTSIDE RECORDS SUMMARY | 2024-08-30 07:41 | XMS_ITS | Encounter Summary ---
Author Organization [employer] ([place], [place], [place], [place]) Address [address] [place] [address] Care Team Providers Care Automobile Brake Bonder Name Role Phone Unavailable Primary Care Provider Unavailabl e Encounter Details Date Type Department Care Team (Late st Contact Info) Description 06/20/[address] [facility] [place] [facility] [place] [address] ProviderMariela MD [address] [place] [address] Social History Tobacco Use Types Packs/Day Years [...] Historical ProviderMD - 06/20/2019 2:00 AM CDT Contact Lens Inspector Details Entered On: 06/20/2019 1:18 EDT Performed [...] Adrianna Ortiz RN - 06/20/2019 1:18 EDT documented in this encounter Plan of Treatment Not on file documented as of this encounter Visit Diagnoses Not on filedocumented in this encounter
--- OUTSIDE RECORDS SUMMARY | 2024-08-30 07:41 | XMS_ITS | Encounter Summary ---
Author Organization [employer] ([place], [place], [place], [place]) Address [address] [place] [address] Care Team Providers Care Sanitation Technician Name Role Phone Unavailable Primary Care Provider Unavailabl e Encounter Details Date Type Department Care Team (Late st Contact Info) Description 06/21/2019 Transcribed Document [facility] [place] [facility] [place] [address] ProviderMariela MD [address] [place] [address] Social History Tobacco Use Types Packs/Day Years Used Date Smoking Tobacco: Never Assessed Comments Unknown Sex and Gender Information Value Date Recorded Sex Assigned at Female 09/02/2021 8:57 PM CDT Legal Sex Female 6:58 PM CDT Gender Identity Female 09/02/2021 8:57 PM CDT Sexual Orientation Not on file documented as of this encounter Miscellaneous Notes * Cerner Conversion Note - Mraiela ProviderMD - 06/21/2019 9:23 AM CDT Consult [...] MD-ORT TYE, CHERYL - 06/21/2019 9:57 EDT documented in this encounter Plan of Treatment Not on file documented as of this encounter Visit Diagnoses Not on filedocumented in this encounter
--- OUTSIDE RECORDS SUMMARY | 2024-08-30 07:41 | XMS_ITS | Encounter Summary ---
Author Organization [employer] ([place], [place], [place], [place]) Address [address] [place] [address] Care Team Providers Care Soil Conservationist Name Role Phone Unavailable Primary Care Provider Unavailabl e Encounter Details Date Type Department Care Team (Late st Contact Info) Description 06/21/2019 Transcribed Document [facility] [place] [facility] Medicine [facility] [place] [address] ProviderMariela MD [address] [place] [address] Social History Tobacco Use Types Packs/Day [...] Conversion Note - Mariela ProviderMD - 06/21/2019 7:25 PM CDT Evaluation, Physical [...] : Rehab Maximal assistance (Comment: x 2 [MUKLU MARTINEZ, PT - 06/22/2019 15:40 EDT] ) [...] MUKUL MARTINEZ, PT - 06/22/2019 15:40 EDT Custodial Goals Other PT LTG Grid Goal #1 [...] MUKUL MARTINEZ, PT - 06/22/2019 15:40 EDT [place] PT Charges PT Ther Activities Ea 15 Min : 1 PT Eval Moderate Complexity : 1 MUKUL MARTINEZ PT - 06/22/2019 15:40 EDT Electronically signed by Chantal [facility] Conversion Bench Mover Cerner at 06/16/2022 8:06 PM CDT documented in this encounter Plan of Treatment Not on file documented as of this encounter Visit Diagnoses Not on filedocumented in this encounter
--- OUTSIDE RECORDS SUMMARY | 2024-08-30 07:41 | XMS_ITS | Encounter Summary ---
Author Organization [employer] ([place], [place], [place], [place]) Address [address] [place] [address] Care Team Providers Care Cross Country Coach Name Role Phone Unavailable Primary Care Provider Unavailabl e Encounter Details Date Type Department Care Team (Late st Contact Info) Description 06/20/2019 Transcribed Document [facility] Family Medicine [facility] [place] [address] ProviderMariela MD [address] [place] [address] Social History Tobacco Use Types Packs/Day Years [...]
--- OUTSIDE RECORDS SUMMARY | 2024-08-30 07:41 | XMS_ITS | Encounter Summary ---
Author Organization [employer] ([place], [place], [place], [place]) Address [address] [place] [address] Care Team Providers Care Men'S Locker Room Attendant Name Role Phone Unavailable Primary Care Provider Unavailabl e Encounter Details Date Type Department Care Team (Late st Contact Info) Description 06/21/2019 Transcribed Document [facility] [place] Family Medicine [address] [place] [address] ProviderMariela MD [address] [place], [place] [phone] Social History Tobacco Use Types Packs/Day Years [...]
--- OUTSIDE RECORDS SUMMARY | 2024-08-30 07:42 | XMS_ITS | Encounter Summary ---
Author Organization [employer] ([place], [place], [place], [place]) Address [address] [place] [address] Care Team Providers Care Service Center Specialist Name Role Phone Unavailable Primary Care Provider Unavailabl e Encounter Details Date Type Department Care Team (Late st Contact Info) Description 06/21/2019 Transcribed Document [facility] [place] [facility] Medicine [facility] [place] [address] ProviderMariela MD [address] [place] [address] Social History Tobacco Use Types Packs/Day Years [...] - 06/21/2019 11:29 EDT Electronically signed by Chantal [facility] Conversion Tutor Coordinator Cerner at 06/16/2022 8:16 PM CDT documented in this encounter Plan of Treatment Not on file documented as of this encounter Visit Diagnoses Not on filedocumented in this encounter
--- OUTSIDE RECORDS SUMMARY | 2024-08-30 07:42 | XMS_ITS | Encounter Summary ---
Author Organization [employer] ([place], [place], [place], [place]) Address [address] [place] [address] Care Team Providers Care Private Branch Exchange Service Advisor Name Role Phone Unavailable Primary Care Provider Unavailabl e Encounter Details Date Type Department Care Team (Late st Contact Info) Description 08/25/2018 Transcribed Document [facility] [place] [address] [place] [address] ProviderMariela MD [address] [place], [place] [phone] Social History Tobacco Use Types Packs/Day Years [...]
--- OUTSIDE RECORDS SUMMARY | 2024-08-30 07:42 | XMS_ITS | Encounter Summary ---
Author Organization [employer] ([place], [place], [place], [place]) Address [address] [place] [address] Care Team Providers Care Apparel Rental Clerk Name Role Phone Unavailable Primary Care Provider Unavailabl e Encounter Details Date Type Department Care Team (Late st Contact Info) Description 06/21/2019 Transcribed Document [facility] [place] [facility] [place] [address] ProviderMariela MD [address] [place] [address] Social History Tobacco Use Types Packs/Day Years [...] Historical ProviderMD - 06/21/2019 2:00 AM CDT Nurse Practitioner Per Diem Details Entered On: 06/21/2019 0:38 EDT Performed On: 06/21/2019 2:00 EDT by Reid Ramon Rn-Charge Order [...]
--- OUTSIDE RECORDS SUMMARY | 2024-08-30 07:42 | XMS_ITS | Encounter Summary ---
Author Organization [employer] ([place], [place], [place], [place]) Address [address] [place] [address] Care Team Providers Care Foreign Exchange Clerk Name Role Phone Unavailable Primary Care Provider Unavailabl e Encounter Details Date Type Department Care Team (Late st Contact Info) Description 06/21/2019 Transcribed Document [facility] [place] [facility] [place] [address] ProviderMariela MD [address] [place] [address] Social History Tobacco Use Types Packs/Day Years [...] RN Intervention Information: oxyCODONE Performed by Nicole Nicole, EDDIE on 06/23/2019 03:25:00 EDT oxyCODONE,15mg Oral,Pain (Moderate 4-6) Pain Assessment Pain Assessment : Follow-up assessment Pain Scale Goal : 3 Pain Comment : pt appears to be asleep Nemo Macario, RN - 06/23/2019 4:15 EDT Electronically signed by Maureen Cornejo Conversion Literacy Education Professor Cerner at 06/16/2022 8:26 PM CDT documented in this encounter Plan of Treatment Not on file documented as of this encounter Visit Diagnoses Not on filedocumented in this encounter
--- OUTSIDE RECORDS SUMMARY | 2024-08-30 07:42 | XMS_ITS | Encounter Summary ---
Author Organization [employer] ([place], [place], [place], [place]) Address [address] [place] [address] Care Team Providers Care Trucker Name Role Phone Unavailable Primary Care Provider Unavailabl e Encounter Details Date Type Department Care Team (Late st Contact Info) Description 08/25/2018 Transcribed Document [facility] [place] [facility] [address] ProviderMariela MD [address] [place] [address] Social History Tobacco Use Types Packs/Day [...] Cerner Conversion Note - Mariela ProviderMD - 08/25/2018 10:33 AM CDT On Going Discharge Planning Entered On: 08/25/2018 10:36 EDT Performed On: 08/25/2018 10:33 EDT by MARY MCGRAW Care Management-Excellence Coach Care Management Progress Note Discharge Arrangements : Patient Post-Acute Information Patient Name: SOFIA BARLOW Gender: Female : 44 Age: 78 Years No Post-Acute Placement(s) Listed No Post-Acute Service(s) Listed No [place] Referral(s) Listed Discharge Options Discussed with Patient : Home Health, Short term rehabilitation Barriers to Discharge Identified : Clinical Condition of Patient Barriers to Discharge Unresolved : Clinical Condition of Patient MARY MCGRAW, Care Management-Excellence Coach - 08/25/2018 10:33 EDT Narrative Progress Note Narrative Progress Note : INSURANCE AUTHORIZATION WILL NEED TO BE RE INITIATED IT HAS SINCE D/C WAS HELD DUE TO PTS CONDITION ANTICIPATE D/C ON WEDNESDAY PENDING AUTHORIZATION AND MEDICAL STABILITY MARY MCGRAW, Care Management-Excellence Coach - 08/26/2018 16:54 EDT documented in this encounter Plan of Treatment Not on file documented as of this encounter Visit Diagnoses Not on filedocumented in this encounter
--- OUTSIDE RECORDS SUMMARY | 2024-08-30 07:42 | XMS_ITS | Encounter Summary ---
Author Organization [employer] ([place], [place], [place], [place]) Address [address] [place] [address] Care Team Providers Care Electrical Controls Designer Name Role Phone Unavailable Primary Care Provider Unavailabl e Encounter Details Date Type Department Care Team (Late st Contact Info) Description 08/26/2018 Transcribed Document [facility] [place] [facility] [place] [address] ProviderMariela MD [address] [place] [address] Social History Tobacco Use Types Packs/Day [...] Note - Mariela ProviderMD - 08/26/2018 9:00 AM CDT Pain [...]
--- OUTSIDE RECORDS SUMMARY | 2024-08-30 07:42 | XMS_ITS | Encounter Summary ---
Author Organization [employer] ([place], [place], [place], [place]) Address [address] [place] [address] Care Team Providers Care Dialer Name Role Phone Unavailable Primary Care Provider Unavailabl e Encounter Details Date Type Department Care Team (Late st Contact Info) Description 08/25/[address] [facility] [place] [facility] [place] [address] ProviderMariela MD [address] [place] [address] Social History Tobacco Use Types Packs/Day Years [...] Historical ProviderMD - 08/25/2018 2:00 AM CDT Operations Management Trainee Details Entered On: 08/25/2018 1:31 EDT Performed On: 08/25/2018 2:00 EDT by Nishi Osuna RN Order [...] Nishi Osuna RN - 08/25/2018 1:31 EDT documented in this encounter Plan of Treatment Not on file documented as of this encounter Visit Diagnoses Not on filedocumented in this encounter
--- OUTSIDE RECORDS SUMMARY | 2024-08-30 07:42 | XMS_ITS | Encounter Summary ---
Author Organization [employer] ([place], [place], [place], [place]) Address [address] [place] [address] Care Team Providers Care Multiple Cut Off Saw Operator Name Role Phone Unavailable Primary Care Provider Unavailabl e Encounter Details Date Type Department Care Team (Late st Contact Info) Description 08/25/2018 Transcribed Document [facility] [place] [facility] [place] [address] ProviderMariela MD [facility] [place] [address] Social History Tobacco Use Types [...] Conversion Note - Mariela ProviderMD - 08/25/2018 3:00 PM CDT Pain [...]
--- OUTSIDE RECORDS SUMMARY | 2024-08-30 07:42 | XMS_ITS | Encounter Summary ---
Author Organization [employer] ([place], [place], [place], [place]) Address [address] [place] [address] Care Team Providers Care Nanotechnology Engineering Technologist Name Role Phone Unavailable Primary Care Provider Unavailabl e Encounter Details Date Type Department Care Team (Late st Contact Info) Description 08/25/2018 Transcribed Document [facility] [place] Family Medicine [address] [place] [address] ProviderMariela MD [address] [place], [place] [id number] Social History Tobacco Use Types Packs/Day Years [...] Nishi Osuna RN - 08/25/2018 4:42 EDT Electronically signed by Maureen Cornejo Conversion Conveyor Tender Concrete Mixing Plant Min at 06/16/2022 8:15 PM CDT documented in this encounter Plan of Treatment Not on file documented as of this encounter Visit Diagnoses Not on filedocumented in this encounter
--- OUTSIDE RECORDS SUMMARY | 2024-08-30 07:42 | XMS_ITS | Encounter Summary ---
Author Organization [employer] ([place], [place], [place], [place]) Address [address] [place] [address] Care Team Providers Care Microbiology Director Name Role Phone Unavailable Primary Care Provider Unavailabl e Encounter Details Date Type Department Care Team (Late st Contact Info) Description 08/25/2018 Transcribed Document [facility] [place] [facility] [place] [address] ProviderMariela MD [facility] [place] [address] Social History Tobacco Use Types [...] will be able to complete transfers to BS at this time. pt had met transfer goal EDIN DRAKE OTR/L - 08/25/2018 12:32 EDT Electronically signed by Maureen Cornejo Conversion Bottle And Glass Inspector Cerbryce at 06/16/2022 8:08 PM CDT documented in this encounter Plan of Treatment Not on file documented as of this encounter Visit Diagnoses Not on filedocumented in this encounter
--- OUTSIDE RECORDS SUMMARY | 2024-08-30 07:42 | XMS_ITS | Encounter Summary ---
Author Organization [employer] ([place], [place], [place], [place]) Address [address] [place] [address] Care Team Providers Care Frit Mixer Name Role Phone Unavailable Primary Care Provider Unavailabl e Encounter Details Date Type Department Care Team (Late st Contact Info) Description 06/21/2019 Transcribed Document [facility] [place] Family Medicine [facility] [place] [address] ProviderMariela MD [address] [place] [id number] Social History Tobacco Use Types Packs/Day Years [...] - 06/21/2019 11:30 EDT Electronically signed by Maureen Cornejo Conversion Home Restoration Service Cleaner Cerner at 06/16/2022 8:08 PM CDT documented in this encounter Plan of Treatment Not on file documented as of this encounter Visit Diagnoses Not on filedocumented in this encounter
--- OUTSIDE RECORDS SUMMARY | 2024-08-30 07:42 | XMS_ITS | Encounter Summary ---
Author Organization [employer] ([place], [place], [place]) Address [address] [place] [address] Care Team Providers Care Sewing Trimmer Name Role Phone Unavailable Primary Care Provider Unavailabl e Encounter Details Date Type Department Care Team (Late st Contact Info) Description 08/25/2018 Transcribed Document [facility] [place] [facility] by [facility] [place] [address] ProviderMariela MD [address] [place] [address] Social History Tobacco Use [...]
--- OUTSIDE RECORDS SUMMARY | 2024-08-30 07:42 | XMS_ITS | Encounter Summary ---
Author Organization [employer] ([place], [place], [place], [place]) Address [address] [place] [address] Care Team Providers Care Hot Saw Helper Name Role Phone Unavailable Primary Care Provider Unavailabl e Encounter Details Date Type Department Care Team (Late st Contact Info) Description 06/21/2019 Transcribed Document [facility] [place] [facility] [place] [address] ProviderMariela MD [address] [place] [address] Social History Tobacco Use Types [...] Conversion Note - Mariela ProviderMD - 06/21/2019 12:41 PM CDT E Main OR PACU Summary Primary Physician: NIMO EPPS MD-ORT Finalized Date/Time: 06/21/19 16:38:57 Pt. Name: SOFIA GILL Eufemia Dobbs/Sex: 1940 Female Med Rec #: [id number] Physician: DONNA DRIVER MD-INT Financial #: [id number] Pt. Type: I Room/Bed: [facility]/ Admit/Disch: 06/16/19 21:08:00 - Institution: [facility] OR PACU Case Times Entry 1 In PACU I 06/21/19 15:43:00 Ready for PACU 06/21/19 16:38:00 Discharge Discharge from PACU 06/21/19 16:38:00 I Last Modified By: OZZIE PARSON RN 06/21/19 16:38:34 Finalized By: OZZIE PARSON, RN Document Signatures Signed By: OZZIE PARSON RN 06/21/19 16:38 Electronically signed by Chantal [facility] Conversion Broadcast Chief Engineer Cerner at 06/16/2022 8:10 PM CDT documented in this encounter Plan of Treatment Not on file documented as of this encounter Visit Diagnoses Not on filedocumented in this encounter
--- OUTSIDE RECORDS SUMMARY | 2024-08-30 07:42 | XMS_ITS | Encounter Summary ---
Author Organization [employer] ([place], [place], [place], [place]) Address [address] [place] [address] Care Team Providers Care Sales Planner Name Role Phone Unavailable Primary Care Provider Unavailabl e Encounter Details Date Type Department Care Team (Late st Contact Info) Description 08/25/2018 Transcribed Document [facility] [place] [facility] [address] ProviderMariela MD [facility] [place] [id number] Social History Tobacco Use Types Packs/Day Years [...] to perform isometric exercises at this time. AREA DEVELOPMENT CONSULTANT instructed pt in isometrics and issued written instructions. Nursing will take care of stand-pivot transfers to [facility] only for activity. CHAITANYA SIMON, PT - 08/25/2018 16:46 EDT Electrical Maintenance Technician Goals Other PT LTG Grid Goal #1 [...] CHAITANYA SIMON, PT - 08/25/2018 16:46 EDT Electronically signed by Maureen Cornejo Conversion Head Start Assistant Teacher Cerner at 06/16/2022 8:18 PM CDT documented in this encounter Plan of Treatment Not on file documented as of this encounter Visit Diagnoses Not on filedocumented in this encounter
--- OUTSIDE RECORDS SUMMARY | 2024-08-30 07:42 | XMS_ITS | Encounter Summary ---
Author Organization [employer] ([place], [place], [place], [place]) Address [address] [place] [address] Care Team Providers Care Airborne Operations Manager Name Role Phone Unavailable Primary Care Provider Unavailabl e Encounter Details Date Type Department Care Team (Late st Contact Info) Description 06/21/2019 Transcribed Document [facility] [place] [facility] [place] [address] ProviderMariela MD [address] [place] [address] Social History Tobacco Use Types Packs/Day [...] Conversion Note - Mariela ProviderMD - 06/21/2019 4:57 PM CDT On Going Discharge Planning Entered On: 06/21/2019 16:57 EDT Performed On: 06/21/2019 16:57 EDT by MIKE FRIEDMAN RN-Segmental Paver InstallerBlister Rust Eradicator Progress Note Discharge Arrangements : Patient Post-Acute [...] Pt/Fam/Support Person : Other: N/A MIKE FRIEDMAN RN-Segmental Paver Installer - 06/21/2019 16:57 EDT Narrative Progress Note Narrative Progress Note : Sent referral to LTACH through [facility]..........faby Historical Progress Note : Was planning for AKA, now patient will undergo a total joint revision with I&D. Will continue to follow.............MIKE Adam RN-Segmental Paver Installer - 06/21/19 16:36:10 PICC line placed, Per LID, plan for manager long term care IV abx. Surgery scheduled for today................MIKE Adam RN-Segmental Paver Installer - 06/21/19 10:06:05 No MDR this AM with provider. Patient with low-grade fever this AM and throughout the night. LAKA was rescheduled for 06/20 for this reason. CM will continue to follow. Halima Tripathi RN-TECHNICAL SOLUTIONS ENGINEER - 06/20/19 11:50:51 Patient becoming more agitated and confused, refusing to wear oxygen. Patient now on CPAP, WBC increased, BC x2 positive for group b Strep. Dr Saenz to perform AKA tomorrow morning. Will continue to follow..............MIKE Adam RN-Segmental Paver Installer - 06/19/19 11:35:19 MIKE FRIEDMAN RN-Segmental Paver Installer - 06/21/2019 16:57 EDT documented in this encounter Plan of Treatment Not on file documented as of this encounter Visit Diagnoses Not on filedocumented in this encounter
--- OUTSIDE RECORDS SUMMARY | 2024-08-30 07:42 | XMS_ITS | Encounter Summary ---
Author Organization [employer] ([place], [place], [place], [place]) Address [address] [place] [address] Care Team Providers Care Compliance Assistant Name Role Phone Unavailable Primary Care Provider Unavailabl e Encounter Details Date Type Department Care Team (Late st Contact Info) Description 08/24/2018 Transcribed Document [facility] [place] Medicine [facility] [place] [address] ProviderMariela MD [facility] [place] [place] [address] Social History Tobacco Use Types [...] Lymph # 1.73 K/uL 08/24/2018 04:17 EDT White % 11.2 % 08/24/2018 04:17 EDT White # 1.30 K/uL (High) 08/24/2018 04:17 EDT [...] Appearance CLEAR2 08/23/2018 11:55 EDT Urine Specific Hansen 1.022 08/23/2018 11:55 EDT Urine pH Dipstick [...]
--- OUTSIDE RECORDS SUMMARY | 2024-08-30 07:42 | XMS_ITS | Encounter Summary ---
Author Organization [employer] ([place], [place], [place], [place]) Address [address] [place] [address] Care Team Providers Care Lumber Marker Name Role Phone Unavailable Primary Care Provider Unavailabl e Encounter Details Date Type Department Care Team (Late st Contact Info) Description 06/21/2019 Transcribed Document [facility] [place] [address] ProviderMariela MD [address] [place] [address] Social History Tobacco Use Types Packs/Day [...] Conversion Note - Mariela ProviderMD - 06/21/2019 6:06 PM CDT Patient: [...] 0.9% 50 mL 2 Gram, IV Piggyback, [id number] cyanocobalamin 1,000 mcg tab 5,000 mcg 5 [...] Push, Q5Min fluticasone 0.05% nasal spray 2 [place], Nostrils Both, BID gabapentin 300 mg cap [...] % LOW ALYC # 1 K/uL NA Metcalfe Percent Man 7 % HI RBC Morphology [...] 1-Time, Stop: 06/22/19 4:00:00 EDT, Lab Collect. documented in this encounter Plan of Treatment Not on file documented as of this encounter Visit Diagnoses Not on filedocumented in this encounter
--- OUTSIDE RECORDS SUMMARY | 2024-08-30 07:42 | XMS_ITS | Encounter Summary ---
Author Organization [employer] ([place], [place], [place], [place]) Address [address] [place] [address] Care Team Providers Care Machine Tool Builder Name Role Phone Unavailable Primary Care Provider Unavailabl e Encounter Details Date Type Department Care Team (Late st Contact Info) Description 06/21/2019 Transcribed Document [facility] [place] [facility] [place] [address] ProviderMariela MD [address] [place] [address] Social History Tobacco Use Types Packs/Day Years [...] able, willing, as schedule permits. FELTON RUSH OTR/L - 06/21/2019 13:10 EDT documented in this encounter Plan of Treatment Not on file documented as of this encounter Visit Diagnoses Not on filedocumented in this encounter
--- OUTSIDE RECORDS SUMMARY | 2024-08-30 07:42 | XMS_ITS | Encounter Summary ---
Author Organization [employer] ([place], [place], [place], [place]) Address [address] [place] [address] Care Team Providers Care Land Conservation Specialist Name Role Phone Unavailable Primary Care Provider Unavailabl e Encounter Details Date Type Department Care Team (Late st Contact Info) Description 06/21/2019 Transcribed Document [facility] [place] [facility] [place] [address] ProviderMariela MD [address] [place] [address] Social History Tobacco Use Types Packs/Day Years [...] : Verbal explanation Reid Ramon, Rn-Charge - 06/21/2019 23:11 EDT documented in this encounter Plan of Treatment Not on file documented as of this encounter Visit Diagnoses Not on filedocumented in this encounter
--- OUTSIDE RECORDS SUMMARY | 2024-08-30 07:42 | XMS_ITS | Encounter Summary ---
Author Organization [employer] ([place], [place], [place], [place]) Address [address] [place] [address] Care Team Providers Care Isobutylene Operator Chief Name Role Phone Unavailable Primary Care Provider Unavailabl e Encounter Details Date Type Department Care Team (Late st Contact Info) Description 06/21/2019 Transcribed Document [facility] [place] [facility] [place] [address] ProviderMariela MD [address] [place] [address] Social History Tobacco Use Types Packs/Day Years [...] Conversion Note - Mariela ProviderMD - 06/21/2019 10:56 AM CDT Spiritual Care Assessment Entered On: 06/21/2019 11:18 EDT Performed On: 06/21/2019 10:50 EDT by PARTHA KUMAR Chaplain-Non Cert General Information Initial Visit : Yes Referred by : Nurse Ministry Provided to : Patient Druze Preference : Lutheran PARTHA KUMAR Chaplain-Non Cert - 06/21/2019 11:17 EDT Spiritual Assessment Spiritual Assessment Comment/Summary Points : Sy is a 79-year-old patient who requests prayer prior to surgery. Spirital Assessment Comment/Summary Report : SPIRITUAL ASSESSMENT COMMENT/SUMMARY No qualifying data available. PARTHA KUMAR Chaplain-Non Cert - 06/21/2019 11:17 EDT Interventions Emotional Support : Emotional, Empathic/Engaged listening, Feelings expressed Spiritual and Druze : Prayer shared PARTHA KUMAR Chaplain-Celine Cert - 06/21/2019 11:17 EDT Electronically signed by Chantal, [facility] Conversion Clinical Psychology Professor Cerner at 06/16/2022 8:30 PM CDT documented in this encounter Plan of Treatment Not on file documented as of this encounter Visit Diagnoses Not on filedocumented in this encounter
--- OUTSIDE RECORDS SUMMARY | 2024-08-30 07:42 | XMS_ITS | Encounter Summary ---
Author Organization [employer] ([place], [place], [place], [place]) Address [address] [place] [address] Care Team Providers Care Crew Manager Name Role Phone Unavailable Primary Care Provider Unavailabl e Encounter Details Date Type Department Care Team (Late st Contact Info) Description 06/21/[address] [facility] [place] [facility] [place] [address] ProviderMariela MD [address] [place] [address] Social History Tobacco Use Types Packs/Day [...] Source : Stated Height Entry Format : [place] Height, Feet : 4 ft(Converted to: 122 cm, 48 Inch) Height, Inches : 11 Inch(Converted to: 0 ft 11 Inch, 27.94 cm) Clinical Height : 149.86 cm Weight Source : Bed scale Weight Entry Format : [place] Clinical Dosing Weight : 91.82 kg Weight, Pounds : 202 lb Body Surface Area (BSA) : 1.85 m2 Body Mass Index : 40.9 kg/m2 (>HHI) Kimball Body Weight : 43 kg THIERRY GOODRICH [...] THIERRY GOODRICH RN - 06/21/2019 11:52 EDT [place] Suicide Severity Rating Scale (C-SSRS) CSSRS Past [...] Any Spiritual/Cultural Needs or Requests : Yes Yarsanism Preference : Yarsani THIERRY GOODRICH RN - 06/21/2019 10:27 EDT [...] rendition version of the form. Nazia Coma Tappen Best Motor Response : Obey commands Nazia Best Verbal Response : Oriented Tappen Eye Opening Response : Spontaneous Tappen Coma Score : 15 THIERRY GOODRICH RN - 06/21/2019 10:27 EDT documented in this encounter Plan of Treatment Not on file documented as of this encounter Visit Diagnoses Not on filedocumented in this encounter
--- OUTSIDE RECORDS SUMMARY | 2024-08-30 07:42 | XMS_ITS | Encounter Summary ---
Author Organization [employer] ([place], [place], [place], [place]) Address [address] [place] [address] Care Team Providers Care Tin Tie Machine Operator Automatic Name Role Phone Unavailable Primary Care Provider Unavailabl e Encounter Details Date Type Department Care Team (Late st Contact Info) Description 06/21/2019 Transcribed Document [facility] [place] [facility] [place] [address] ProviderMariela MD [address] [place] [id number] Social History Tobacco Use Types Packs/Day Years [...] Conversion Note - Mariela Gates MD - 06/21/2019 3:38 PM CDT DATE OF [...] tendon repair. ANESTHESIA: Femoral nerve block, sciatic. HEAD TRACK COACH: Brady. ESTIMATED BLOOD LOSS: Minimal. TOURNIQUET TIME: [...] harder than normal. Multiple cultures were sent. /[id number] Riaz Saenz MD CC/AQ / CC / MODL /[id number] Electronically signed by Chantal, [facility] Conversion Purchasing Buyer Cerner at 06/16/2022 8:21 PM CDT documented in this encounter Plan of Treatment Not on file documented as of this encounter Visit Diagnoses Not on filedocumented in this encounter
--- OUTSIDE RECORDS SUMMARY | 2024-08-30 07:42 | XMS_ITS | Encounter Summary ---
Author Organization [employer] ([place], [place], [place], [place]) Address [address] [place] [address] Care Team Providers Care Civil Engineering Draftsperson Name Role Phone Unavailable Primary Care Provider Unavailabl e Encounter Details Date Type Department Care Team (Late st Contact Info) Description 08/26/2018 Transcribed Document [facility] [place] [facility] [place] [address] ProviderMariela MD [address] [place] [address] Social History Tobacco Use Types Packs/Day Years [...] Historical ProviderMD - 08/26/2018 2:00 AM CDT Schedule Announcer Details Entered On: 08/26/2018 0:26 EDT Performed [...] Kamini Sullivan RN - 08/26/2018 0:25 EDT documented in this encounter Plan of Treatment Not on file documented as of this encounter Visit Diagnoses Not on filedocumented in this encounter
--- OUTSIDE RECORDS SUMMARY | 2024-08-30 07:42 | XMS_ITS | Encounter Summary ---
Author Organization [employer] ([place], [place], [place], [place]) Address [address] [place] [address] Care Team Providers Care Flexographic Printing Machinist Name Role Phone Unavailable Primary Care Provider Unavailabl e Encounter Details Date Type Department Care Team (Late st Contact Info) Description 06/21/2019 Transcribed Document [facility] [place] [facility] [place] [address] ProviderMariela MD [address] [place] [address] Social History Tobacco Use Types Packs/Day [...]
--- OUTSIDE RECORDS SUMMARY | 2024-08-30 07:42 | XMS_ITS | Encounter Summary ---
Author Organization [employer] ([place], [place], [place], [place]) Address [address] [place] [address] Care Team Providers Care Animal Sitter Name Role Phone Unavailable Primary Care Provider Unavailabl e Encounter Details Date Type Department Care Team (Late st Contact Info) Description 06/21/2019 Transcribed Document [facility] [place] [facility] [place] [address] ProviderMariela MD [address] [place] [address] Social History Tobacco Use Types [...] Conversion Note - Mariela ProviderMD - 06/21/2019 8:50 AM CDT [facility] [place] PreOp Summary Primary Physician: NIMO EPPS MD-ORT Finalized Date/Time: 06/21/19 11:49:12 Pt. Name: SOFIA GILL S /Sex: 1940 Female Med Rec #: [id number] Physician: DONNA DRIVER MD-INT Financial #: [id number] Pt. Type: I Room/Bed: 509/1 Admit/Disch: 06/16/19 21:08:00 - [place] [facility] [place] Case Times Entry 1 In Preop 06/21/19 09:15:00 Ready for Holding n/a Room Patient Ready for 06/21/19 10:20:00 Surgery Patient Out of Preop 06/21/19 11:41:00 Patient Out of n/a Holding Room Last Modified By: OZZIE PARSON RN 06/21/19 11:49:08 Tita PreOp Case Times Audit 06/21/19 11:49:08 Pin Setter: HORACIO Modifier: [id number] <+> 1 Patient Out of Preop Finalized By: OZZIE PARSON RN Document Signatures Signed By: OZZIE PARSON RN 06/21/19 11:49 documented in this encounter Plan of Treatment Not on file documented as of this encounter Visit Diagnoses Not on filedocumented in this encounter
--- OUTSIDE RECORDS SUMMARY | 2024-08-30 07:42 | XMS_ITS | Encounter Summary ---
Author Organization [employer] ([place], [place], [place], [place]) Address [address] [place] [address] Care Team Providers Care Plane Runner Name Role Phone Unavailable Primary Care Provider Unavailabl e Encounter Details Date Type Department Care Team (Late st Contact Info) Description 06/21/2019 Transcribed Document [facility] [place] Family Medicine [facility] [place] [address] ProviderMariela MD [address] [place] [address] Social History Tobacco Use Types Packs/Day Years [...] Reid Ramon, Rn-Charge - 06/22/2019 1:23 EDT Electronically signed by Chantal [facility] Conversion Fortune Cookie Maker Cerner at 06/16/2022 8:21 PM CDT documented in this encounter Plan of Treatment Not on file documented as of this encounter Visit Diagnoses Not on filedocumented in this encounter
--- OUTSIDE RECORDS SUMMARY | 2024-08-30 07:42 | XMS_ITS | Encounter Summary ---
Author Organization [employer] ([place], [place], [place], [place]) Address [address] [place] [address] Care Team Providers Care Backup Engineer Name Role Phone Unavailable Primary Care Provider Unavailabl e Encounter Details Date Type Department Care Team (Late st Contact Info) Description 06/22/2019 Transcribed Document [facility] [place] [facility] [place] [address] ProviderMariela MD [address] [place] [address] Social History Tobacco Use Types Packs/Day Years [...]
--- OUTSIDE RECORDS SUMMARY | 2024-08-30 07:42 | XMS_ITS | Encounter Summary ---
Author Organization [employer] ([place], [place], [place], [place]) Address [address] [place] [address] Care Team Providers Care Furnace Charger Name Role Phone Unavailable Primary Care Provider Unavailabl e Encounter Details Date Type Department Care Team (Late st Contact Info) Description 06/21/2019 Transcribed Document [facility] [place] [facility] [address] ProviderMariela MD [address] [place] [address] Social History Tobacco Use Types Packs/Day [...] Mariela ProviderMD - 06/21/2019 7:25 PM CDT Pain Assessment Entered On: 06/22/2019 6:43 EDT Performed On: 06/22/2019 4:32 EDT by Reid Ramon Rn-Charge Intervention Information: oxyCODONE Performed by Reid Ramon, Rn-Charge on 06/22/2019 03:32:00 EDT oxyCODONE,20mg Oral,Pain [...] of the form. Electronically signed by Chantal, [facility] Conversion Wine And Spirits Clerk Cerner at 06/16/2022 8:29 PM CDT documented in this encounter Plan of Treatment Not on file documented as of this encounter Visit Diagnoses Not on filedocumented in this encounter
--- OUTSIDE RECORDS SUMMARY | 2024-08-30 07:42 | XMS_ITS | Encounter Summary ---
Author Organization [email or web address] ([place], [place], [place], [place]) Address [address] [place] [address] Care Team Providers Care Education Program Manager Name Role Phone Unavailable Primary Care Provider Unavailabl e Encounter Details Date Type Department Care Team (Late st Contact Info) Description 08/25/2018 Transcribed Document [facility] [place] [facility] [place] [address] ProviderMariela MD [facility] [place] [address] Social History Tobacco Use Types [...] Conversion Note - Mariela ProviderMD - 08/25/2018 9:00 AM CDT Pain [...] form. Electronically signed by Maureen Cornejo Conversion Healthcare Financial Analyst Cerner at 06/16/2022 8:23 PM CDT documented in this encounter Plan of Treatment Not on file documented as of this encounter Visit Diagnoses Not on filedocumented in this encounter
--- OUTSIDE RECORDS SUMMARY | 2024-08-30 07:42 | XMS_ITS | Encounter Summary ---
Author Organization [employer] ([place], [place], [place], [place]) Address [address] [place] [address] Care Team Providers Care Health Care Specialist Name Role Phone Unavailable Primary Care Provider Unavailabl e Encounter Details Date Type Department Care Team (Late st Contact Info) Description 06/21/2019 Transcribed Document [facility] [place] [address] ProviderMariela MD [address] [place] [address] [id number] Social History Tobacco Use Types Packs/Day Years [...] Conversion Note - Mariela ProviderMD - 06/21/2019 12:27 PM CDT DATE OF CONSULTATION: 06/21/2019 DIAGNOSIS: 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 HISTORY OF PRESENT ILLNESS: Ms. 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 The patient then had persistent pain because of femoral implant loosening and was sent to sd. The patient then underwent successful revision left [...] to make sure no infection that knee. /[id number] Riaz Saenz MD CC/AQ / CC / MODL /[id number] Electronically signed by [facility] Conversion Social Media Manager Cerner at 06/16/2022 8:10 PM CDT documented in this encounter Plan of Treatment Not on file documented as of this encounter Visit Diagnoses Not on filedocumented in this encounter
--- OUTSIDE RECORDS SUMMARY | 2024-08-30 07:42 | XMS_ITS | Encounter Summary ---
Author Organization [employer] ([place], [place], [place], [place]) Address [address] [place] [address] Care Team Providers Care Script Girl Name Role Phone Unavailable Primary Care Provider Unavailabl e Encounter Details Date Type Department Care Team (Late st Contact Info) Description 08/25/2018 Transcribed Document [facility] [place] [facility] [place] [address] ProviderMariela MD [address] [place] [address] Social History Tobacco Use Types Packs/Day Years [...] Kamini Sullivan RN - 08/25/2018 22:33 EDT documented in this encounter Plan of Treatment Not on file documented as of this encounter Visit Diagnoses Not on filedocumented in this encounter
--- OUTSIDE RECORDS SUMMARY | 2024-08-30 07:42 | XMS_ITS | Encounter Summary ---
Author Organization [employer] ([place], [place], [place], [place]) Address [address] [place] [address] Care Team Providers Care Database Modeler Name Role Phone Unavailable Primary Care Provider Unavailabl e Encounter Details Date Type Department Care Team (Late st Contact Info) Description 06/21/2019 Transcribed Document [facility] [place] Medicine [place] [address] ProviderMariela MD [address] [place] [id number] Social History Tobacco Use Types Packs/Day [...] Conversion Note - Mariela ProviderMD - 06/21/2019 10:05 AM CDT On Going Discharge Planning Entered On: 06/21/2019 10:06 EDT Performed On: 06/21/2019 10:05 EDT by MIKE FRIEDMAN RN-Farmworker [employer] Requirements Planner Progress Note Discharge Arrangements : Patient Post-Acute [...] Pt/Fam/Support Person : Other: N/A MIKE FRIEDMAN RN-Farmworker Livestock - 06/21/2019 10:05 EDT Narrative Progress Note Narrative Progress Note : PICC line placed, Per LID, plan for long chain beamer IV abx. Surgery scheduled for today................faby Historical Progress Note : No MDR this AM with provider. Patient with low-grade fever this AM and throughout the night. COTY was rescheduled for 06/20 for this reason. CM will continue to follow. Halima Tripathi, EDDIE-POST COMMANDER - 06/20/19 11:50:51 Patient becoming more agitated and confused, refusing to wear oxygen. Patient now on CPAP, WBC increased, BC x2 positive for group b Strep. Dr Saenz to perform AKA tomorrow morning. Will continue to follow..............MIKE Adam RN-Farmworker Livestock - 06/19/19 11:35:19 MIKE FRIEDMAN RN-Farmworker Livestock - 06/21/2019 10:05 EDT documented in this encounter Plan of Treatment Not on file documented as of this encounter Visit Diagnoses Not on filedocumented in this encounter
--- OUTSIDE RECORDS SUMMARY | 2024-08-30 07:43 | XMS_ITS | Encounter Summary ---
Author Organization [employer] ([place], [place], [place], [place]) Address [address] [place] [address] Care Team Providers Care Aluminum Siding Mechanic Name Role Phone Unavailable Primary Care Provider Unavailabl e Encounter Details Date Type Department Care Team (Late st Contact Info) Description 06/21/2019 Transcribed Document [facility] [place] Family Medicine [facility] [place] [address] ProviderMariela MD [facility] [place] [address] Social History Tobacco Use Types [...] Mariela ProviderMD - 06/21/2019 12:41 PM CDT [facility] [place] Main OR IntraOp Summary Primary Physician: NIMO EPPS MD-ORT Finalized Date/Time: 06/21/19 15:40:53 Pt. Name: SOFIA BARLOW S /Sex: 1940 Female Med Rec #: [id number] Physician: DONNA DRIVER MD-INT Financial #: [id number] Pt. Type: I Room/Bed: [facility]/ Admit/Disch: 06/16/19 21:08:00 - Institution: [facility] [place] IntraOp Case Attendance Entry 1 Entry 2 Entry 3 Case Attendee NIMO EPPS Holliday, Stewart R, RN YUNIOR DUBOSE MD-ORT Role Performed Surgeon/Proceduralist, Engine Repair Supervisor, First Scrub, Second First Time In 06/21/19 [...] By: Last Modified By: Luiza Nelson, Luiza Pablo Rn Maxwell, Kristi, Rn 06/21/19 15:26:08 06/21/19 13:23:46 06/21/19 15:40:48 Entry 4 Entry 5 Entry 6 Case Attendee RAMON GRECO DO-ANS Horton, Jamie, VERONICA MARTINEZ CRNA Role Performed Anesthesiologist Engine Repair Supervisor, Second SOLVENT PLANT OPERATOR/Nurse Backrest Assembler Time In 06/21/19 11:50:00 06/21/19 11:50:00 06/21/19 [...] By: Last Modified By: Luiza Nelson, Luiza Pablo Rn Maxwell, Kristi, Rn 06/21/19 13:23:46 06/21/19 15:40:48 06/21/19 15:40:48 Entry 7 Entry 8 Entry 9 Case Attendee OTHER, ATTENDEE Luiza Nelson, OMAR Wilkinson, ESTEBAN Role Performed Vendor Engine Repair Supervisor, Second Executive Business Coach, First Time In 06/21/19 11:50:00 06/21/19 11:50:00 [...] By: Last Modified By: Luiza Nelson, Luiza Pablo, Luiza Pablo Rn 06/21/19 13:23:46 06/21/19 15:40:48 06/21/19 15:40:48 Entry 10 Entry 11 Case Attendee SOLOMON MCCRACKEN PA-C Combs, Leslie, Cupola Operator Role Performed Physician life enrichment assistant Scrub, First Time In 06/21/19 11:50:00 06/21/19 11:50:00 Time Out 06/21/19 15:40:00 06/21/19 15:40:00 Procedure Patella Tendon Patella Tendon Repair(Left) Repair(Left) Other Attendee Superficial Wound Closed By: Last Modified By: Luiza Nelson, Luiza Pablo Rn 06/21/19 15:40:48 06/21/19 15:40:48 [facility] IntraOp Case Attendance Audit 06/21/19 15:40:48 Agency Service Representative: [id number] Modifier: [id number] 1 <*> Procedure Knee Total Joint Revision, [...] <*> Procedure Patella Tendon Repair(Left) 06/21/19 15:26:08 Agency Service Representative: [id number] Modifier: [id number] 1 <+> Time Out 1 <*> Procedure Knee Total Joint Revision, Wound Incision And Drainage Extremity(Left), Patella Tendon Repair(Left) 7 <+> Time Out 7 <*> Procedure Knee Total Joint Revision, Wound Incision And Drainage Extremity(Left), Patella Tendon Repair(Left) 06/21/19 15:25:31 Agency Service Representative: [id number] Modifier: [id number] 1 <*> Procedure Knee Total Joint Revision, [...] 10 Procedure <+> 11 Procedure 06/21/19 14:23:50 Agency Service Representative: [id number] Modifier: [id number] 1 <*> Procedure Knee Total Joint Revision, [...] In <+> 11 Time In 06/21/19 13:23:46 Agency Service Representative: [id number] Modifier: [id number] 1 <*> Case Attendee NIMO EPPS MD-ORT 1 <*> Role Performed Surgeon/Proceduralist, First 1 <*> Time In 06/21/19 11:50:00 1 <*> Procedure Knee Total Joint Revision, Wound Incision And Drainage Extremity(Left) 2 <*> Case Attendee Vick Schroeder, RN 2 <*> Role Performed Engine Repair Supervisor, First 2 <*> Time In 06/21/19 11:50:00 [...] Claus Almanzar, RN 5 <*> Role Performed Engine Repair Supervisor, Second 5 <*> Time In 06/21/19 11:50:00 5 <*> Procedure Knee Total Joint Revision, Wound Incision And Drainage Extremity(Left) 6 <*> Case Attendee VERONICA AYALA, SOLVENT PLANT OPERATOR 6 <*> Role Performed SOLVENT PLANT OPERATOR/Nurse Backrest Assembler 6 <*> Time In 06/21/19 12:31:00 6 <*> Procedure Knee Total Joint Revision, Wound Incision And Drainage Extremity(Left) 7 <*> Case Attendee OTHER, ATTENDEE 7 <*> Role Performed Vendor 7 <*> Time In 06/21/19 11:50:00 7 <*> Procedure Knee Total Joint Revision, Wound Incision And Drainage Extremity(Left) 7 <*> Other Attendee Sammy Beard 8 <*> Case Attendee Luiza Nelson, Eddie 8 <*> Role Performed Engine Repair Supervisor, Second 8 <*> Time In 06/21/19 11:50:00 [...] Attendee OTHER, ATTENDEE <-> 10 Role Performed Executive Business Coach, First <-> 10 Time In 06/21/19 11:50:00 <-> 10 Other Attendee Prince Cornejo 06/21/19 13:05:25 Agency Service Representative: [id number] Modifier: [id number] 1 <*> Procedure Knee Total Joint Revision, [...] Extremity(Left) <+> 10 Time In 06/21/19 12:59:17 Agency Service Representative: [id number] Modifier: [id number] <+> 8 Case Attendee <+> 8 Role Performed <+> 8 Procedure <+> 9 Case Attendee <+> 9 Role Performed <+> 9 Procedure <+> 10 Case Attendee <+> 10 Role Performed <+> 10 Other Attendee 06/21/19 12:53:44 Agency Service Representative: [id number] Modifier: [id number] 1 <*> Procedure Knee Total Joint Revision, [...] Wound Incision And Drainage Extremity(Left) 06/21/19 12:43:54 Agency Service Representative: [id number] Modifier: [id number] <+> 7 Case Attendee <+> 7 Role Performed <+> 7 Procedure <+> 7 Other Attendee 06/21/19 12:36:50 Agency Service Representative: [id number] Modifier: [id number] 1 <*> Procedure Knee Total Joint Revision, [...] Wound Incision And Drainage Extremity(Left) 06/21/19 12:31:59 Agency Service Representative: [id number] Modifier: [id number] <+> Time Out 4 <*> Procedure Knee Total Joint Revision, Wound Incision And Drainage Extremity(Left) <+> 5 Case Attendee <+> 5 Role Performed <+> 5 Procedure <+> 6 Case Attendee <+> 6 Role Performed <+> 6 Time In <+> 6 Procedure 06/21/19 12:23:34 Agency Service Representative: [id number] Modifier: [id number] 1 <*> Procedure Knee Total Joint Revision, [...] [facility] IntraOp Case Times Audit 06/21/19 15:40:40 Agency Service Representative: [id number] Modifier: [id number] <+> 1 Out Room Time <+> 1 Stop Time 06/21/19 15:39:30 Agency Service Representative: [id number] Modifier: [id number] <+> 1 Stop Time 06/21/19 12:52:18 Agency Service Representative: [id number] Modifier: [id number] <+> 1 Start Time [facility] IntraOp Cautery [...] 13:31:07 [facility] IntraOp Cautery Audit 06/21/19 13:31:07 Agency Service Representative: [id number] Modifier: [id number] 1 <*> Cautery Type BiPolar ESU 1 [...] Scrub (Scrub) Tech Count Performed By Claus Almanzar, Luiza Pablo Rn (RN) Last Modified By: Luiza Nelson Rn Maxwell, Kristi, Rn 06/21/19 12:54:50 06/21/19 15:01:44 [facility] IntraOp Counts Verification Audit 06/21/19 15:25:34 Agency Service Representative: [id number] Modifier: [id number] 1 <*> Procedure Knee Total Joint Revision, Wound Incision And Drainage Extremity(Left) 2 <*> Procedure Knee Total Joint Revision, Wound Incision And Drainage Extremity(Left) 06/21/19 15:01:44 Agency Service Representative: [id number] Modifier: [id number] <+> 2 Procedure <+> 2 Count Type <+> 2 Counts Verification Sequence <+> 2 Count Results <+> 2 Count Performed By (Scrub) <+> 2 Count Performed By (RN) 06/21/19 12:54:50 Agency Service Representative: [id number] Modifier: [id number] 1 <*> Procedure Knee Total Joint Revision, Wound Incision And Drainage Extremity(Left) 1 <*> Count Type Sponge, Sharps 1 <*> Counts Verification Sequence Baseline/pre-procedure 1 <*> Count Results Correct, surgeon notified 1 <+> Count Performed By (Scrub) 1 <+> Count Performed By (RN) 06/21/19 12:51:36 Agency Service Representative: [id number] Modifier: [id number] 1 <*> Procedure Knee Total Joint Revision, [...] [facility] IntraOp Counts Final Audit 06/21/19 15:25:34 Agency Service Representative: [id number] Modifier: [id number] 1 <*> Procedure Knee Total Joint Revision, Wound Incision And Drainage Extremity(Left) [facility] IntraOp Cultures and Spec Summary Entry 1 Cultrures and Specimens Specimen Ordered: Yes Test(s) Routine/Path-Lab, Requested/Final Culture(s)/Microbiology Disposition Last Modified By: Luiza Nelson Rn 06/21/19 13:20:20 [facility] IntraOp Cultures and Spec Summary Audit 06/21/19 13:20:20 Agency Service Representative: [id number] Modifier: [id number] 1 <*> Test(s) Requested/Final Disposition Routine/Path-Lab [facility] IntraOp Departure from OR Entry 1 Integumentary Assessment Integumentary WDL Assessment WDL Transfer/Handoff Transfer to PACU Phase I Handoff Method Bedside/Face to face Post-op Transport Bed (including Via specialty) Patient Transport VERONICA AYALA, Accompanied by Jenelle SALAMANCA Jamie, EDDIE, Luiza Nelson Rn Last Modified By: Luiza Nelson Rn 06/21/19 13:31:50 [facility] IntraOp Departure from OR Audit 06/21/19 13:31:50 Agency Service Representative: [id number] Modifier: [id number] 1 <+> Integumentary Assessment WDL 1 <*> Patient Transport Accompanied by Vick Schroeder, RN 1 <+> Handoff Method [facility] IntraOp Drains and Tubes Entry 1 Device Type Hemovac Size MED. Device Location LEFT KNEE Method of Drainage Compression Comment HEMOVAC X 2 Last Modified By: Luiza Nelson Rn 06/21/19 15:01:21 [facility] IntraOp Drains and Tubes Audit 06/21/19 15:01:21 Agency Service Representative: [id number] Modifier: [id number] <+> 1 Comment 06/21/19 13:32:08 Agency Service Representative: [id number] Modifier: [id number] 1 <*> Device Location OPSITE [facility] IntraOp Dressing and Packing Entry 1 Type Dressing Location LEFT KNEE Wound Dressing Item 4x4's, Sanchez, Webril, Xeroform Supplemental Cold pack Applications Last Modified By: Luiza Nelson Rn 06/21/19 12:23:52 [facility] IntraOp Dressing and Packing Audit 06/21/19 13:32:28 Agency Service Representative: [id number] Modifier: [id number] 1 <*> Location OPSITE [facility] IntraOp Explant Log Entry 1 Explant Log Description POLY AND HARDWARE Explant Site LEFT KNEE Removal Reason Infection Disposition Sent to pathology Last Modified By: Luiza Nelson Rn 06/21/19 13:33:14 [facility] IntraOp Explant Log Audit 06/21/19 15:19:08 Agency Service Representative: [id number] Modifier: [id number] 1 <*> Description PATELLA POLY [facility] IntraOp [...] IntraOp Fire Risk Assessment Audit 06/21/19 13:33:24 Agency Service Representative: [id number] Modifier: [id number] 1 <*> Fire Risk Assessment Verified By Vick Schroeder, RN E IntraOp General Case Compliance Program Manager 1 Case Information OR OR 02 SJE Case Level 1 Room Verified Yes Wound Class IV - Dirty-Infected Specialty SN Orthopedic Anesthesia Type General ASA Class 4 Diagnosis Preop Diagnosis LEFT KNEE INFECTION Postop Same As Preop No Postop Diagnosis DICTATED BY MD Last Modified By: Luiza Nelson Rn 06/21/19 12:51:29 [facility] IntraOp General Case Data Audit 06/21/19 13:34:03 Agency Service Representative: [id number] Modifier: [id number] 1 <*> OR OR 09 SJE 1 <+> Postop Same As Preop 1 <*> Preop Diagnosis left knee infection 1 <*> Postop Diagnosis refer to MD notes 06/21/19 12:55:46 Agency Service Representative: [id number] Modifier: [id number] <+> 1 Preop Diagnosis 06/21/19 12:51:29 Agency Service Representative: [id number] Modifier: [id number] <+> 1 ASA Class <+> 1 Anesthesia Type <+> 1 Postop Diagnosis <+> 1 Room Verified [facility] IntraOp Implant Log Entry 1 Entry 2 Entry 3 Type Implant (Synthetic) Implant (Synthetic) Implant (Synthetic) Implant Log Implant Type Hardware Hardware Hardware Tissue Implant Type Implant INSRT FEM XT SZ [id number] KT SERVICE SEG FEM IMP SEG ARTC SURF B Identification HINGE [id number] Description Implant Quantity 1 1 1 Implant Site LEFT KNEE LEFT KNEE LEFT KNEE Implant Identification Model Number Implant Identification Serial Number Implant [id number] Identification Lot Number Implant Jacquie:Jacquie Us Jacquie:Jacquei Us Jacquie:Jacquie Us Identification Dust Collector Treater Name: Implant [id number] Identification Catalog Number Implant Size Implant Has an Yes Yes Yes Expiration Date Implant Expiration 06/29/27 11/28/24 02/28/27 Date Wasted Radioactive Material Time Implanted Tissue Implant Continue for Tissue Implant Documentation Tissue Identification Number Graft Prep Per Dust Collector Treater Instructions: Tissue Preparation Method: Reconstitution Solution: Reconstitution Solution Lot Number Reconstitution Solution Expiration Date: Thawing Solution Thawing Solution Lot Number Thawing Solution Expiration Date Preparation Materials, Other Preparation Materials, Other Lot Number Preparation Materials, Other Expiration Date Tissue Prepared/Processed By Dust Collector Treater Paperwork Completed Implant Type Comment Last Modified By: Luiza Nelson Rn Maxwell, Kristi, Rn Maxwell, Kristi, Rn 06/21/19 14:40:06 06/21/19 14:40:06 06/21/19 14:40:06 Entry 4 Type Implant (Synthetic) Implant Log Implant Type Hardware Tissue Implant Type Implant COMP FEM XT DIS SZ B Identification [id number] Description Implant Quantity 1 Implant Site LEFT KNEE Implant Identification Model Number Implant Identification Serial Number Implant [id number] Identification Lot Number Implant Jacquie:Jacquie Us Identification Dust Collector Treater Name: Implant [id number] Identification Catalog Number Implant Size Implant Has an Yes Expiration Date Implant Expiration 01/31/30 Date Wasted Radioactive Material Time Implanted Tissue Implant Continue for Tissue Implant Documentation Tissue Identification Number Graft Prep Per Dust Collector Treater Instructions: Tissue Preparation Method: Reconstitution Solution: Reconstitution Solution Lot Number Reconstitution Solution Expiration Date: Thawing Solution Thawing Solution Lot Number Thawing Solution Expiration Date Preparation Materials, Other Preparation Materials, Other Lot Number Preparation Materials, Other Expiration Date Tissue Prepared/Processed By Dust Collector Treater Paperwork Completed Implant Type Comment Last Modified [...] [facility] IntraOp Intraoperative Assessment Audit 06/21/19 13:34:44 Agency Service Representative: [id number] Modifier: [id number] 1 <*> Level of Consciousness (WDL = [...] [facility] IntraOp Intraoperative Equipment Audit 06/21/19 13:51:08 Agency Service Representative: [id number] Modifier: [id number] <+> 1 Blood Pressure Location <+> 1 Pulse Oximeter Probe Site <+> 1 Antiembolic Device Location <+> 1 Blood Pressure Source [facility] IntraOp Medication Admin Entry 1 Entry 2 Entry 3 Medication/Irrigant TRANEXAMIC ACID ANESTHETIC vancomycin 1Gm vial - 1000MG/10 ML MAHENDRA-EPPS [id number] Combo Med List Time Administered Route of [...] VERONICA AYALA CRNA, Luiza Nelson, Eddie, Claus Almanzar RN, OMAR JIMENEZ, ESTEBAN, YUNIOR DUBOSE Position Verified Positioning Yes Verified by Anesthesia Positioning Yes Verified by Surgeon Last Modified By: Luiza Nelson Rn 06/21/19 13:51:47 [facility] IntraOp Patient Positioning Audit 06/21/19 13:51:47 Agency Service Representative: [id number] Modifier: [id number] 1 <*> Procedure Knee Total Joint Revision 1 <*> Positioned By Vick Schroeder RN [facility] IntraOp Sign In Entry 1 Patient, [...] [facility] IntraOp Sign In Audit 06/21/19 13:51:56 Agency Service Representative: [id number] Modifier: [id number] <+> 1 Allergies [facility] Intra Op Sign [...] Intra Op Sign Out Audit 06/21/19 15:40:46 Agency Service Representative: [id number] Modifier: [id number] <+> 1 RN Sign Out Signature Date/Time [...] [facility] IntraOp Skin Prep Audit 06/21/19 14:22:51 Agency Service Representative: [id number] Modifier: [id number] 1 <*> Prep Area OPSITE 1 <*> [...] NIMO EPPS CHRISTENSEN, CHRISTIAN, CHRISTENSEN, CHRISTIAN, MD-ORT RENEEORAmina DURANORT Start 06/21/19 12:41:00 06/21/19 12:41:00 06/21/19 12:41:00 Stop 06/21/19 15:38:00 06/21/19 15:38:00 06/21/19 15:38:00 Physician States Cecum Reached Anesthesia Type General General General Specialty SN Orthopedic SN Orthopedic SN Orthopedic Wound Class I - Clean IV - Dirty-Infected IV - Dirty-Infected Last Modified By: Luiza Nelson, Luiza Pablo Rn Maxwell, Kristi, Rn 06/21/19 15:25:19 06/21/19 15:25:19 06/21/19 15:25:19 [facility] IntraOp Surgical Procedures Audit 06/21/19 15:39:32 Agency Service Representative: [id number] Modifier: [id number] <+> 1 Stop <+> 2 Stop <+> 3 Stop 06/21/19 15:25:19 Agency Service Representative: [id number] Modifier: [id number] 1 <*> Procedure Knee Total Joint Revision [...] Class <+> 3 Anesthesia Type 06/21/19 14:43:08 Agency Service Representative: [id number] Modifier: [id number] 1 <*> Procedure Knee Total Joint Revision 1 <*> Additional Procedure Description LEFT TOTAL KNEE REVISION POSSIBLE INCISION AND DRAINAGE LEFT LEG 2 <*> Procedure Wound Incision And Drainage Extremity 2 <+> Modifiers [facility] IntraOp Temp Regulation Devices Entry 1 Temp Regulation Temperature Conductive warming Regulation Device device placed over patient Temperature Upper body Regulation Site Temperature Device 43 Setting Temperature VERONICA AYALA CRNA Regulation Device Applied by Last Modified By: Luiza Nelson, Eddie 06/21/19 12:52:49 [facility] IntraOp Time Out Entry 1 Procedure to be Knee Total Joint Performed Revision, Wound Incision And Drainage Extremity(Left) Time Out Time Out Pause Time 06/21/19 12:40:00 All activity Yes suspended (unless life threatening emergency) Team Verbally Correct patient Confirms Information identity, Correct side Electronically signed by [facility] Conversion Plastic Sewer Cerner at 06/16/2022 8:17 PM CDT documented in this encounter Plan of Treatment Not on file documented as of this encounter Visit Diagnoses Not on filedocumented in this encounter
== END ==
LOC: SL 07:29
PROVIDERS: PCP Nurse Practitioner Family; Visit Provider Nurse Practitioner Family
DX: G47.33 Obstructive sleep apnea (adult) (pediatric) (principal); G47.36 Sleep related hypoventilation in conditions classified elsewhere; E66.9 Obesity, unspecified
CPT/HCPCS: G0399

== ENCOUNTER 2024-09-05 07:48 | Day surgery (SDC) | payer MEDICARE, SELFPAY ==
[2024-09-05 07:53] VITALS: BMI 39.0
[2024-09-05 07:58] VITALS: PULSE 80
[2024-09-05 08:03] VITALS: BP 140/63; PULSE 80; RESP 20; O2SAT 96
[2024-09-05] MEDS: LIDOCAINE 1% W/EPI 1:100,000 20ML VIAL 20 ML IJ (08:04)
[2024-09-05] MEDS: CLINDAMYCIN PHOSPHATE/D5W 900 MG/50 ML PIGGYBACK 100 MG IV (08:04)
[2024-09-05 08:22] VITALS: BP 99/57; PULSE 78; RESP 20; O2SAT 95
--- NOTE | 2024-09-05 08:30 | EXP.LOOP ---
[facility] Loop Recorder Date: 09/05/24 Time: 08:34 Procedure Performed:: Implantation of loop recorder Indication:: Mobitz type I second-degree AV block Technique:: Patient was brought to the cardiac Jet Blade Polisher. After informed consent obtained, 1% lidocaine with epinephrine was used to anesthetize the site along the left anterior aspect of the chest near the sternal border. Using the preformed scalpel, an incision was made and using the supplied preloaded apparatus, the loop recorder was placed subcutaneously without difficulty. Following the deployment of the loop recorder interrogation of the device was performed to ensure appropriate voltage was being detected. Once this was verified, Steri-Strips were placed over the incision and the patient was prepped to discharge home. Patient tolerated the procedure well with minimal discomfort. Impression:: Successful implantation of loop recorder Serial Number:: [employer] S.A.t-IQ EL plus Model #[id number] Serial #[id number] Plan:: Routine postop care
== END 2024-09-05 09:17 | disposition home or self-care (01) ==
PROVIDERS: PCP Nurse Practitioner Family; Visit Provider Internal Medicine
PROC: (CPT 33285; principal; 2024-09-05 08:45)
DX: I44.1 Atrioventricular block, second degree (principal); E03.9 Hypothyroidism, unspecified; M19.90 Unspecified osteoarthritis, unspecified site; I11.0 Hypertensive heart disease with heart failure; J45.909 Unspecified asthma, uncomplicated; G47.33 Obstructive sleep apnea (adult) (pediatric); I73.9 Peripheral vascular disease, unspecified; I25.10 Atherosclerotic heart disease of native coronary artery without angina pectoris; I35.0 Nonrheumatic aortic (valve) stenosis; E66.811 Obesity, class 1; I50.32 Chronic diastolic (congestive) heart failure; E78.49 Other hyperlipidemia; Z95.828 Presence of other vascular implants and grafts; Z68.39 Body mass index [BMI] 39.0-39.9, adult; Z88.0 Allergy status to penicillin; Z88.6 Allergy status to analgesic agent; Z88.2 Allergy status to sulfonamides; Z88.8 Allergy status to other drugs, medicaments and biological substances; Z79.82 Long term (current) use of aspirin; Z79.899 Other long term (current) drug therapy; Z79.890 Hormone replacement therapy; Z79.1 Long term (current) use of non-steroidal anti-inflammatories (NSAID); Z82.49 Family history of ischemic heart disease and other diseases of the circulatory system; Z82.3 Family history of stroke; Z83.438 Family history of other disorder of lipoprotein metabolism and other lipidemia; Z99.3 Dependence on wheelchair
CPT/HCPCS: 33285; C1764; J0736; J2004

== ENCOUNTER 2024-11-03 14:34 | Outpatient (CLI) | payer MEDICARE, SELFPAY ==
--- OUTSIDE RECORDS SUMMARY | 2020-11-21 20:00 | XMS_ITS | Continuity of Care Document ---
Author Organization [address] [place] [id number] [place] [address] [address] [place] [address] Phone Care Team Providers Care Administrative Staff Supervisor Name Role Phone Florentin Jack DPM Unavailable Unavailable Allergies, Adverse Reactions, Alerts Substance Reaction Status Criticality No Known Allergies Active No Inform ation Procedures Procedure Date DEBRIDE NAIL 6 OR MORE Advance Directives Directive Yes / No Effective Date File Name No Information Encounters Encounter Description Practice Location Reason(s) For Visit Diagnoses Date Provider Providers Copied on Encounter [address] [place] [address], [id number] [place], [place] [address] [address], [place], [place], [id number], tel:[phone] [place] [facility] Tinea unguiumOther specified peripheral vascular diseases [facility]ero Lerma. [address] [place] [address], [address], Critical access hospital, . Referring Provider: Florentin Fall, [address] [place] [address] [address], [place], [address]. Family History Family Member Type Diagnosis Age At Onset No Information Payers Payer name Insurance type Covered constitution party ID Authoriza tion(s) [facility] Medicare CI [id number] Social History Type Description Quantity Date Captured Comments Alcohol Use Details Unknown Caffeine Use Details Unknown Tobacco Use Status No Information Smoking Status No Information Sex Female Chief Complaint And Reason For Visit No Information Reason For Referral Reason For Referral No Information History Of Present Illness Encounter Date Complaint History Of Prese nt Illness No Information Functional Status Date Functional Assessmen t No Information Instructions Date Instruction Additional Infor mation Toenails 1-5 b/l wer e debrided in length and thickness without incident. Follow up in 2-3 months. Related to Tinea unguium Assessments Type Assessment Date assessment Tinea unguium assessment Other specified peripheral vascu lar diseases Patient Care Teams Name Effective Dates (start - stop) Status Members No Information
--- OUTSIDE RECORDS SUMMARY | 2024-06-03 17:30 | XMS_ITS ---
Author Organization [facility] D [place] Address [address] [facility] [address] [place] [address] Care Team Providers Care Senior Pensions Administrator Name Role Phone Sina Segura Primary Care Provider [phone] Migration, Provider Unavailable Unavailable Allergies Allergen (clinical drug ingredient) Drug/Non Drug Allergy documented on EMR Reaction Allergy Type Onset Date Status BEXTRA (uncoded) Unknown Allergy Act ivan MOBIC (uncoded) Unknown Allergy Acti ve SULFA (uncoded) itching Allergy Acti ve etodolac Etodolac Unknown Drug Allergy Active sulfamethoxazole / trimethoprim Bactrim itching Drug Allergy Active naproxen Naprosyn Unknown Drug Allergy Active Penicillin Unknown Drug Allergy Active phentermine Phentermine rash Drug Allergy Act ivan REASON FOR VISIT [facility] To [facility] Conversion Encounter Medications Medication SIG (Take, Route, Frequency, Duration) Notes Start Date End Date Status Lisinopril 5 MG 1 tab(s) orally once a day; Duration: 90 days Active Furosemide 40 MG 1 tab(s) orally once a day; Duration: 90 days Active Diclofenac Sodium 75 MG 1 tab(s) orally 2 times a day; Duration: 90 days Active Combivent Respimat 20-100 MCG/ACT 1 puff(s) inhaled 4 times a day; Duration: 30 days Active Levocetirizine Dihydrochloride 5 MG 1 tab(s) orally once a day (in the evening); Duration: 90 days Active POTASSIUM CHLORIDE (CBI-TQYD-VFQ M20) 20 MEQ TAKE 1 TABLET BY MOUTH EVERY DAY; Duration: 90 *Please review for potential replacement for e-prescription and drug interaction check* Active Cymbalta 60 MG 1 cap(s) orally once a day; Duration: 90 days Active Crestor 10 MG 1 tab(s) orally once a day (at bedtime); Duration: 90 days Active Levothyroxine Sodium 100 MCG 1 tab(s) orally once a day; Duration: 90 days Active Albuterol Sulfate HFA 108 (90 Base) MCG/ACT 2 puff(s) inhaled every 6 hours as needed for wheezing; Duration: 30 days 11/04/2023 Active TUMERICK 500MG ONE TABLET ONCE A DAY *Please review for potential replacement for e-prescription and drug interaction check* Active Nystatin 055858 UNIT/GM 1 nilda applied topically 3 times a day; Duration: 14 days 08/25/2021 Active Multivitamin - 1 tab(s) orally once a day; Duration: 30 day(s) Active Fluticasone Propionate 50 MCG/ACT 2 sprays nasally once a day; Duration: 30 day(s) 10/21/2017 Active Cyanocobalamin-Methylco balamin 5000mcg-1 tablet once a day *Please review and pick correct strength-formulati on from [employer] options. If intended option is not shown, discontinue and re-order from Quick Search* Active MiraLax - ORALLY ONCE A DAY *Please review and pick correct strength-formulati on from [employer] options. If intended option is not shown, discontinue and re-order from Quick Search* Active Calcium-Vitamin D 600 MG-800 INTL UNITS 1TAB ORALLY TWICE DAILY *Please review and pick correct strength-formulati on from [employer] options. If intended option is not shown, discontinue and re-order from Quick Search* Active Aspirin Low Dose 81 MG 1 tab orally once a day Active Doxycycline Hyclate 100 MG 1 cap(s) orally once a day Active Cephalexin 500 MG 1 cap(s) orally once a day Active HYDROcodone-Acetaminoph en 7.5-325 MG 1 tab(s) orally every 6 hours Active Mucinex 600 MG 1 tab(s) orally every 12 hours Active COQ10 (OBSOLETE) 100 MG 1 CAP(S) ORALLY ONCE A DAY *Please review for potential replacement for e-prescription and drug interaction check* Active Encounters Encounter Location Date Provider Diagnosis [facility] [address] [place] [id number] 06/03/2024 Provider Migration Wheezing R06.2 Assessments Encounter Date Diagnosis (ICD Code) Assessment Notes Treatment Notes Treatment Clinical Notes Section Notes 06/03/2024 Wheezing (ICD-10 - R06.2) Plan Of Treatment Medication Medication Name Sig Start Date Stop Date Notes Furosemide 40 MG 1 tab(s) orally once a day; Duration: 90 days Diclofenac Sodium 75 MG 1 tab(s) orally 2 times a day; Duration: 90 days Combivent Respimat 20-100 MCG/ACT 1 puff(s) inhaled 4 times a day; Duration: 30 days Levocetirizine Dihydrochloride 5 MG 1 tab(s) orally once a day (in the evening); Duration: 90 days POTASSIUM CHLORIDE (XPG-DMPJ-CDS M20) 20 MEQ TAKE 1 TABLET BY MOUTH EVERY DAY; Duration: 90 *Please review for potential replacement for e-prescription and drug interaction check* Progress Notes * BRIDGET Sy SDOB: [birth year] (84 yo F)Acc No.[id number]:06/03/2024 Patient: Sy ASIF S Provider: Briana roque Migration :1940 A ge:84 Y S ex:Female Date:06/03/2024 Address:[address] [place] [address] [place], [id number] Pcp:Sina Segura Subjective: * Chief Complaints: * 1 . [facility] Conversion Encounter. * Medical History: * Medications: T aking COQ10 (OBSOLETE) 100 MG CAPSULE 1 CAP(S) ORALLY ONCE A DAY , Notes to Pharmacist: *Please review for potential replacement for e-prescription and drug interaction check*, Taking HYDROcodone-Acetaminophen 7.5-325 MG Tablet 1 tab(s) orally every 6 hours , Taking Mucinex 600 MG Tablet Extended Release 12 Hour 1 tab(s) orally every 12 hours , Taking Doxycycline Hyclate 100 MG Capsule 1 cap(s) orally once a day , Taking Cephalexin 500 MG Capsule 1 cap(s) orally once a day , Taking Calcium-Vitamin D 600 MG-800 INTL UNITS TABLET 1TAB ORALLY TWICE DAILY , Notes to Pharmacist: *Please review and pick correct strength-formulation from [employer] options. If intended option is not shown, discontinue and re-order from Quick Search*, Taking Aspirin Low Dose 81 MG Tablet Delayed Release 1 tab orally once a day , Taking MiraLax - POWDER FOR RECONSTITUTION ORALLY ONCE A DAY , Notes to Pharmacist: *Please review and pick correct strength-formulation from [employer] options. If intended option is not shown, discontinue and re-order from Quick Search*, Taking TUMERICK 500MG TABLET ONE TABLET ONCE A DAY , Notes to Pharmacist: *Please review for potential replacement for e-prescription and drug interaction check*, Taking Cyanocobalamin-Methylcobalamin , Notes to Pharmacist: 5000mcg-1 tablet once a day *Please review and pick correct strength-formulation from [employer] options. If intended option is not shown, discontinue and re-order from Quick Search*, Taking Multivitamin - Tablet 1 tab(s) orally once a day , Taking Fluticasone Propionate 50 MCG/ACT Suspension 2 sprays nasally once a day , Taking Nystatin 792128 UNIT/GM Powder 1 nilda applied topically 3 times a day , Taking Albuterol Sulfate HFA 108 (90 Base) MCG/ACT Aerosol Solution 2 puff(s) inhaled every 6 hours as needed for wheezing , Taking Crestor 10 MG Tablet 1 tab(s) orally once a day (at bedtime) , Taking Levothyroxine Sodium 100 MCG Tablet 1 tab(s) orally once a day , Taking Cymbalta 60 MG Capsule Delayed Release Particles 1 cap(s) orally once a day , Taking Lisinopril 5 MG Tablet 1 tab(s) orally once a day * Allergies: P enicillin, Naprosyn, Etodolac, MOBIC, BEXTRA, Bactrim: itching, Phentermine: rash, SULFA: itching. Objective: * Vitals: Assessment: * Assessment: 1. W zain - R06.2 Plan: * Treatment: 2. O thers Start Levocetirizine Dihydrochloride Tablet, 5 MG, 1 tab(s), orally, once a day (in the evening), 90 days, 90, Refills 2; S tart Diclofenac Sodium Tablet Delayed Release, 75 MG, 1 tab(s), orally, 2 times a day, 90 days, 180, Refills 1; S tart POTASSIUM CHLORIDE (MQF-AQUN-GDT M20) TABLET, EXTENDED RELEASE, 20 MEQ, TAKE 1 TABLET BY MOUTH EVERY DAY, 90, 90 TABLET, Refills 0, Notes to Pharmacist: *Please review for potential replacement for e-prescription and drug interaction check*; S tart Furosemide Tablet, 40 MG, 1 tab(s), orally, once a day, 90 days, 90 Tablet, Refills 1. ? * * Electronic signature of Prov ider Migration on 11/03/2024 at 02:38 PM EDT Sign off status: Pending * Provider: Briana roque Migration Date: 0 06/03/2024 Generated for Corrina brito/Kirstin/Marli on: 0 11/03/2024 02:38 PM EDT
--- OUTSIDE RECORDS SUMMARY | 2024-08-05 17:30 | XMS_ITS ---
Author Organization [employer] [facility] dicine Address [address] [place] [address] Care Team Providers Care Child Support Case Officer Name Role Phone Migration, Provider Unavailable Unavailable [...] Unknown Drug Allergy Active [facility] Conversion Encounter Medications Medication SIG (Take, Route, [...] review and pick correct strength[facility]formulat [facility]. If intended option is not shown, [...] review and pick correct strength-formulat ion from [employer] options. If intended option is not shown, [...] review and pick correct strength-formulat ion from [employer] options. If intended option is not shown, [...] review and pick correct strength-formulat ion from [employer] options. If intended option is not shown, [...] Active Encounters Encounter Location Date Provider Diagnosis [address] [address] 08/05/2024 Provider Migration Plan Of Treatment No Information Progress Notes * Chase BARLOWOB:1940 (84 yo F)Acc No.[id number]:08/05/2024 Patient: Nevin garcia Sy Provider: :1940 A ge:84 Y S ex:Female Date:08/05/2024 Address:[address] [place] [address] Subjective: * Chief Complaints: * M ultum [...] *Please review and pick correct strength-formulation from [employer] options. If intended option is not shown, [...] *Please review and pick correct strength-formulation from [employer] options. If intended option is not shown, [...] *Please review and pick correct strength-formulation from [employer] options. If intended option is not shown, discontinue and re-order from [employer]*oxyCODONE HCl 5 MG Tablet 1 tab(s) orally every 6 hours , Notes to Pharmacist: prnPotassium Chloride 20MEQ 1XDAY PO , Notes to Pharmacist: *Please review and pick correct strength-formulation from [employer] options. If intended option is not shown, [...] *Please review and pick correct strength-formulation from [employer] options. If intended option is not shown, [...] *Please review and pick correct strength-formulation from [employer] options. If intended option is not shown, [...] *Please review and pick correct strength-formulation from [employer] options. If intended option is not shown, discontinue and re-order from Quick Search*Taking oxyCODONE HCl 5 MG Tablet 1 tab(s) orally every 6 hours , Notes to Pharmacist: prnTaking Potassium Chloride 20MEQ 1XDAY PO , Notes to Pharmacist: *Please review and pick correct strength-formulation from [employer] options. If intended option is not shown, [...] of Prov ider Migration on 11/03/2024 at 02:36 PM EDT Sign off status: Pending * Provider: Date: 0 08/05/2024 Generated for Corrina brito/Kirstin/Keyshaitting on: 11/03/2024 02:36 PM EDT
--- OUTSIDE RECORDS SUMMARY | 2024-09-25 10:45 | XMS_ITS | Encounter Summary ---
Author Organization [facility] Address [address] [place] [address] Care Team Providers Care Environmental Sustainability Manager Name Role Phone Gracia Cleaning Dr Primary Care Provider Unavailabl e Reason for Visit * Reason Comments TAVR evaluation Encounter Details Date Type Department Care Team ([facility] st Contact Info) Description 09/25/2024 10:45 AM EDT [facility] [address] [facility] [address] [place] [address] Deepa Lama MD [address] [facility] [address] [place] [address] Aortic valve stenosis (Primary Dx); Shortness of breath Social History Tobacco Use Types Packs/Day Years Used Date Smoking Tobacco: Never Smokeless Tobacco: Never Tobacco Cessation:Counseling Given: Not Answered Alcohol Use Standard Drinks/Week Comments Never 0 (1 standard drink = 0.6 oz pur e alcohol) Comments Unknown Sex and Gender Information Value Date Recorded Sex Assigned at Not on file Legal Sex Female 9:50 AM EDT Gender Identity Not on file Sexual Orientation Not on file documented as of this encounter Last Filed Vital Signs Vital Sign Reading Time Taken Comments Blood Pressure 122/72 09/25/2024 10:38 AM EDT Pulse 86 09/25/2024 10:38 AM EDT Temperature - - Respiratory Rate - - Oxygen Saturation 96% 09/25/2024 10:38 AM EDT Inhaled Oxygen Concentration - - Weight 95.3 kg (210 lb) 09/25/2024 10:38 AM EDT Height 151.1 cm (4' 11.5 ) 09/25/2024 10:38 AM E DT Body Mass Index 41.71 09/25/2024 10:38 AM EDT documented in this encounter Progress Notes * Deepa Lama MD - 09/25/2024 10:45 AM EDT Images from the original note were not included. Structural Heart & Valve Intervention [facility] Cardiology Chief Complaint Patient presents with TAVR evaluation Encounter Diagnoses Name Primary? Shortness of breath Aortic valve stenosis Yes History of Present Illness Sy Barlow is a 84 y.o. female that presents to [facility]ve Clinic for evaluation of severe symptomatic aortic valve stenosis and consideration for percutaneous transcatheter aortic valve replacement (TAVR). The patient is referred by Dr. Miguel. History of Present Illness The patient presents for aortic valve stenosis. She is accompanied by her sons. She was diagnosed with severe aortic stenosis during her annual physical examination that found a cardiac murmur which then prompted an echocardiogram as she had not undergone one since 2018. Echocardiogram showed an aortic valve mean gradient of 36 mm and an aortic valve area of 0.8 cm??. She also underwent a heart catheterization and had a loop recorder implanted due to irregular heartbeats in [place]. The cardiac catheterization revealed no significant stenosis; nonobstructive coronary disease as per the patient. No stents were placed. She reports fatigue and takes afternoon naps. She has limited mobility due to eight knee surgeries and uses a walker for transfers only. She lives independently with weekly assistance. She experiences leg swelling. She is interested in knowing if she is a candidate for TAVR and the recovery time pos t-procedure. She has sleep apnea and uses a CPAP machine, which she finds difficult to breathe without when lying down. She has arthritis. She has high blood pressure and is on medication for that. She has high cholesterol and is on medication for that. Supplemental Information She has seasonal allergies and some drug allergies. She has had a shoulder replacement and receiveda steroid injection about a month ago. She had back pain and an MRI showed a cyst on her right kidney, but her doctor keeps track of that and told her she has nothing to worry about. SOCIAL HISTORY She does not smoke or drink alcohol. ALLERGIES The patient has seasonal allergies and some drug allergies. EKG today in the office shows HR 73. Current Outpatient Medications: Current Medications[1] ROS Constitutional: Patient denies fevers or chills. HEENT: Patient denies headache or diplopia. Cardiovascular: Positive shortness of breath. No chest pain Respiratory: Patient denies cough. Denies wheezing. GI: Patient denies abdominal pain or melena. Neurologic: Patient denies dizziness or weakness of extremities. Musculoskeletal: Patient denies arthritis or arthralgias. Skin: Patient denies rash or lesions. Psychiatric: No complaints of depression or somnolent mood. Problem List[2] Medical History[3] Family History[4] Social History Socioeconomic History Marital status: Spouse name: Not on file Number of children: Not on file Years of education: Not on file Highest education level: Not on file Occupational History Not on file Tobacco Use Smoking status: Never Smokeless tobacco: Never Substance and Sexual Activity Alcohol use: Never Drug use: Never Sexual activity: Not on file Other Topics Concern Not on file Social History Narrative Not on file Social Drivers of Health Financial Resource Strain: Not on file Food Insecurity: Not on file Transportation Needs: Not on file Physical Activity: Not on file Stress: Not on file Social Connections: Not on file Intimate Partner Violence: Not on file Housing Stability: Not on file Physical Exam 09/25/2024 10:38 AM Vitals Systolic 122 Diastolic 72 Heart Rate 86 Height (in) 4' 11.5 (1.511 m) Weight (lb) 210 BMI 41.71 kg/m2 BSA (m2) 2 m2 SpO2 96 % Visit Report Report Physical Exam Gen: Pleasant, no acute distress; obese. HEENT: oral mucosa moist, no bruits Chest Wall: No evidence of deformity Resp: Clear bilaterally, no wheezes Card: Regular rate. Late peaking systolic murmur. Abd: Soft, nontender, nondistended Skin: Normal color, texture and turgor w/o lesions or eruptions Ext: 1+ lower extremity edema. Psych: AAOx3, demonstrated good judgement and reason Data: No results found for: WBC , HGB , HCT , PLT , NA , K , CL , CO2 , BUN , CREATININE , GLUF , AST , ALT , BILITOT , ALKPHOS , CHOL , TRIG , HDL , LDLDIRECT , TSH , INR , HGBA1C , MICROALBUR No data to display No data to display -- -- Assessment & Plan 84 y.o. female that presents to [facility] for evaluation of severe symptomatic aortic valve stenosis and consideration for percutaneous transcatheter aortic valve replacement (TAVR). Severe symptomatic aortic valve stenosis, stage D Elevated BMI Peripheral arterial disease Nonobstructive coronary disease Sleep apnea I discussed in detail the evaluation process for possible percutaneous transcatheter aortic valve replacement (TAVR) with the patient and her family. CT TAVR imaging will be completed for anatomical assessment of her aortic valve and feasibility for TAVR access. Patient will also be discussed with CTS for shared decision making. We will then discuss the patient at multidisciplinary structural heart and valve conference for a final Heart Team treatment recommendation. I offered to immediately expedite her evaluation however the patient wishes to delay this due to family arrangements. Arrangements for the patient's CT TAVR imaging will be made at a convenient time in place for the patient. We will call her later this week to finalize these plans. Deeap Lama MD Structural Heart & Valve Disease [facility] Interventional Cardiology - [facility] [place], [facility] [phone] 09/25/2024 [1] Current Outpatient Medications: aspirin 81 MG EC tablet, Take in the morning., Disp: , Rfl: Vttdwck-Jhehjwdforp-Yjfrneiyxy (BREZTRI AEROSPHERE IN), Inhale., Disp: , Rfl: cephalexin (Keflex) 500 MG capsule, Take 500 mg by mouth in the morning., Disp: , Rfl: Crestor 10 MG tablet, Take in the morning., Disp: , Rfl: Cyanocobalamin (B-12) 1000 MCG tablet, Take by mouth., Disp: , Rfl: Cymbalta [address] capsule, Take in the morning., Disp: , Rfl: diclofenac (Voltaren) 75 MG EC tablet, Take in the morning and in the evening., Disp: , Rfl: doxycycline (Monodox) 100 MG capsule, Take 100 mg by mouth in the morning., Disp: , Rfl: furosemide (Lasix) 40 MG tablet, Take 40 mg by mouth in the morning., Disp: , Rfl: HYDROcodone-acetaminophen ([place]) 7.5-325 MG tablet, Take 1 tablet by mouth every 6 (six) hours., Disp: , Rfl: levocetirizine (Xyzal) 5 MG tablet, Take in the morning., Disp: , Rfl: lisinopril 5 MG tablet, Take 5 mg by mouth in the morning., Disp: , Rfl: Magnesium Citrate 125 MG capsule, Take in the morning., Disp: , Rfl: Multiple Vitamin (Multi Vitamin) tablet, Take in the morning., Disp: , Rfl: Polyethylene Glycol 3350 (MIRALAX PO), Take by mouth., Disp: , Rfl: potassium chloride CR (Klor-Con M20) 20 MEQ ER tablet, Take 20 mEq by mouth., Disp: , Rfl: Synthroid 100 MCG tablet, Take in the morning., Disp: , Rfl: [2] There is no problem list on file for this patient. [3] No past medical history on file. [4] No family history on file. documented in this encounter Plan of Treatment Upcoming Encounters Date Type Department Care Team ([facility] Contact Info) Description 11/13/2024 11:00 AM EDT Office Visit [facility] [address] [place] [address] Deepa Lama MD [address] [facility] [address] [place] [address] 11/15/2024 10:45 AM EDT [facility] [address] [place] [address] Pina Granados, ALEXIS [address] [place] [phone] documented as of this encounter Procedures Procedure Name Priority Date/Time Associated Diagnosis Comments ECG 12-LEAD Routine 09/25/2024 11:07 AM EDT Shortness of breath documented in this encounter Results * ECG 12 Lead (09/25/2024 11:07 AM EDT) us Deepa Lama MD ECG ORDERABLES Final Result documented in this encounter Visit Diagnoses Diagnosis Aortic valve stenosis- Primary Shortness of breath Follow-up arranged- Primary Severe aortic valve stenosis documented in this encounter Care Teams Environmental Sustainability Manager Relationship Specialty Start Date End Date Gracia Cleaning Dr. PCP - General 09/18/24 documented as of this encounter
--- OUTSIDE RECORDS SUMMARY | 2024-10-31 06:45 | XMS_ITS ---
Author Organization [facility] Address [address] [facility] [address] [place] [address] Care Team Providers Care Clinical Microbiologist Name Role Phone VioletaSina arriola Primary Care Provider Flavia Gomez Unavailable [phone] Allergies Allergen (clinical drug ingredient) Drug/Non Drug [...] phentermine Phentermine rash Drug Allergy Act ivan Reason For Referral Reason LEFT breast US Diagnosis 1 Mass of lower inner quadrant of left breast (N63.24) Referral Organization [facility] BRISEYDA CAMPOS Referring Provider First Name Flavia Referring Provider Last Name Patricia Referring Provider Speciality Family Pra ctice Referred Organization [facility] Referred Address [address] [facility], [place], [place],[address], Referred Provider Specialty Diagnostic R adiology General Notes Geetha Rodriguez 2024 11:12:27 AM >sent to [facility] to schedule Referral Priority Routine REASON FOR VISIT [place] D/C 10/13/2024, had valve replaced, found lump in left breast Medications Medication SIG (Take, Route, Frequency, Duration) Notes Start Date End Date Status Levothyroxine Sodium 100 MCG TAKE 1 TABLET DAILY Active Klor-Con M20 20 MEQ 1 tablet with food Orally Once a day; Duration: 90 days Active Lisinopril 5 MG 1 tab(s) orally once a day; Duration: 90 days Active Furosemide 40 MG 1 tab(s) orally once a day; Duration: 90 days Active Cymbalta 60 MG 1 cap(s) orally once a day; Duration: 90 days Active Levocetirizine Dihydrochloride 5 MG 1 tab(s) orally once a day (in the evening); Duration: 90 days Active Albuterol Sulfate HFA 108 (90 Base) MCG/ACT 2 puff(s) inhaled every 6 hours as needed for wheezing; Duration: 30 days 11/04/2023 Active Nystatin 147063 UNIT/GM 1 nilda applied topically 3 times a day; Duration: 14 days 08/25/2021 Active Fluticasone Propionate 50 MCG/ACT 2 sprays nasally once a day; Duration: 30 day(s) 10/21/2017 Active Multivitamin - 1 tab(s) orally once a day; Duration: 30 day(s) Active MiraLax - ORALLY ONCE A DAY *Please review and pick correct strength-formulati on from BeSmart options. If intended option is not shown, discontinue and re-order from Quick Search* Active Aspirin Low Dose 81 MG 1 tab orally once a day Active Calcium-Vitamin D 600 MG-800 INTL UNITS 1TAB ORALLY TWICE DAILY *Please review and pick correct strength-formulati on from BeSmart options. If intended option is not shown, discontinue and re-order from Quick Search* Active Cyanocobalamin-Methylco balamin 5000mcg-1 tablet once a day *Please review and pick correct strength-formulati on from Terrafugiaan options. If intended option is not shown, discontinue and re-order from Quick Search* Active TUMERICK 500MG ONE TABLET ONCE A DAY *Please review for potential replacement for e-prescription and drug interaction check* Active Cephalexin 500 MG 1 cap(s) orally once a day Active Doxycycline Hyclate 100 MG 1 cap(s) orally once a day Active Mucinex 600 MG 1 tab(s) orally every 12 hours Active HYDROcodone-Acetaminoph en 7.5-325 MG 1 tab(s) orally every 6 hours Active COQ10 (OBSOLETE) 100 MG 1 CAP(S) ORALLY ONCE A DAY *Please review for potential replacement for e-prescription and drug interaction check* Active Plavix 75 MG 1 tablet Orally Once a day Active Diclofenac Sodium 75 MG 1 tab(s) orally 2 times a day; Duration: 90 days Active Rosuvastatin Calcium 10 mg TAKE 1 TABLET DAILY AT BEDTIME Active Problems Problem Type SNOMED Code ICD Code Onset Dates Problem Status W/U Status Risk Notes Problem History of heart valve repair with prosthesis ([id number] ) S/P AVR (aortic valve replacement ) (Z95.2) Active confirmed Vital Signs Temperature 97.2 degrees Fahrenheit 11/01/19 25 Heart Rate 80 /min 10/31/2024 Blood pressure systolic 118 mm Hg 11/01/19 25 Blood pressure diastolic 72 mm Hg 025 Height 59 in 10/31/2024 Weight 221 lbs 10/31/2024 BMI 44.63 kg/m2 10/31/2024 Encounters Encounter Location Date Provider Diagnosis [facility] [address] [facility] [address] [place] [address] 10/31/2024 Flavia Gomez S/P AVR (aortic valve replacement) Z95.2 ; Hospital discharge follow-up Z09 and Mass of lower inner quadrant of left breast N63.24 Assessments Encounter Date Diagnosis (ICD Code) Assessment Notes Treatment Notes Treatment Clinical Notes Section Notes 10/31/2024 S/P AVR (aortic valve replacement) (ICD-10 - Z95.2) 10/31/2024 Hospital discharge follow-up (ICD-10 - Z09) 10/31/2024 Mass of lower inner quadrant of left breast (ICD-10 - N63.24) Plan Of Treatment Pending Test Test Name Order Date Ultrasound : Breast, Left 10/31/2024 Referrals Referral Date Details 10/31/2024 10/31/2024, LEFT lashaun ast US, [address] [facility], [place], [address], Next Appt Details Follow Up: prn, Reason: Progress Notes * Sy GILL SDOB: [birth year] (84 yo F)Acc No.[id number]:10/31/2024 HOSP F/U Patient: Nevin BARILLASSy Eufemia Provider: ALMA Patel :1940 A ge:84 Y S ex:Female Date:10/31/2024 Address:[place], [id number] Pcp:Sina Segura Subjective: * Chief Complaints: * 1 . [place] D/C 10/13/2024, had valve replaced, found lump in left breast. * Medical History: A llergies, osteoarthritis, followed by [facility], Hypercholestrolemia, sleep apnea on CPAP, Hypertension, Asthma, [...] knee- infection 05/2019, Rt knee-pateller tendor reattached 07/2020, valve replacement 10/12/2024. * Hospitalization/Major Diagno stic Procedure: b roken leg 2013, revision of lt knee replacement-[facility] 2014, [facility] then to [facility] 5 [facility] 2017, [facility]- then [facility] to [facility] until 09/2019, [facility] [place] 07/2020, [facility] for valve replacement 09/2024. * Family History: F ather: . 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 * Medications: T aking Plavix 75 MG Tablet 1 tablet Orally Once a day , Taking COQ10 (OBSOLETE) 100 MG CAPSULE 1 CAP(S) [...] *Please review and pick correct strength-formulation from Terrafugiaan options. If intended option is not shown, discontinue and re-order from Quick Search*, Taking Aspirin Low Dose 81 MG Tablet Delayed Release 1 tab orally once a day , Taking MiraLax - POWDER FOR RECONSTITUTION ORALLY ONCE A DAY , Notes to Pharmacist: *Please review and pick correct strength-formulation from Terrafugiaan options. If intended option is not shown, discontinue and re-order from Quick Search*, Taking TUMERICK 500MG TABLET ONE TABLET ONCE A DAY , Notes to Pharmacist: *Please review for potential replacement for e-prescription and drug interaction check*, Taking Cyanocobalamin- Methylcobalamin , Notes to Pharmacist: 5000mcg-1 tablet once a day *Please review and pick correct strength-formulation from Terrafugiaan options. If intended option is not shown, discontinue and re-order from Quick Search*, Taking Multivitamin - Tablet 1 tab(s) orally once a day , Taking Fluticasone Propionate 50 MCG/ACT Suspension 2 sprays nasally once a day , Taking Nystatin 739336 UNIT/GM Powder 1 nilda applied topically 3 times a day , Taking Albuterol Sulfate HFA 108 (90 Base) MCG/ACT Aerosol Solution 2 puff(s) inhaled every 6 hours as needed for wheezing , Taking Levocetirizine Dihydrochloride 5 MG Tablet 1 tab(s) orally once a day (in the evening) , Taking Furosemide 40 MG Tablet 1 tab(s) orally once a day , Taking Lisinopril 5 MG Tablet 1 tab(s) orally once a day , Taking Klor-Con M20 20 MEQ Tablet Extended Release 1 tablet with food Orally Once a day , Taking Levothyroxine Sodium 100 MCG Tablet TAKE 1 TABLET DAILY , Taking Cymbalta 60 MG Capsule Delayed Release Particles 1 cap(s) orally once a day , Taking Rosuvastatin Calcium 10 mg Tablet TAKE 1 TABLET DAILY AT BEDTIME , Taking Diclofenac Sodium 75 MG Tablet Delayed Release 1 tab(s) orally 2 times a day , Discontinued Combivent Respimat 20-100 MCG/ACT Aerosol Solution 1 puff(s) inhaled 4 times a day , Discontinued Zepbound 2.5 MG/0.5ML Solution Auto-injector 0.5 mL Subcutaneous once a week , Medication List reviewed and reconciled with the patient * Allergies: P enicillin, Naprosyn, Etodolac, MOBIC, BEXTRA, Bactrim: itching, Phentermine: rash, SULFA: itching. Objective: * Vitals: N urse: nm, Pain: 0, Temp: 97.2, RR: 18, HR: 80, BP: 118/72, Ht: 59, Wt: 221, BMI:44.63. Assessment: * Assessment: 1. S /P AVR (aortic valve replacement) - Z95.2 (Primary) 2 . H ospital discharge follow-up - Z09 3 . M ass of lower inner quadrant of left breast - N63.24? Plan: * Treatment: * ? Referral To:Diagnostic Radiology ?Reason:LEFT breast US * Follow Up: p rn * * Electronic signature of Svitlana Gomez APRN on 11/03/2024 at 02:37 PM EDT Sign off status: Pending * Provider: ALMA Patel Date: 0 10/31/2024 Generated for Corrina brito/Kirstin/Marli on: 0 11/03/2024 02:37 PM EDT Consultation Request Notes Referral Date Referring Provider Referred Provider Not es 10/31/2024 Flavia Gomez , LEFT breast US
--- OUTSIDE RECORDS SUMMARY | 2024-11-03 14:37 | XMS_ITS | Patient Health Record ---
Author Organization [facility] Address [address] [place] [address] Care Team Providers Care Franchise Sales Manager Name Role Phone Migration, Provider Unavailable Unavailable [...] review and pick correct strength-formulat ion from [employer] options. If intended option is not shown, discontinue and re-order from Quick Search* Active Cymbalta 60 MG Capsule Delayed Release Particles 1 cap(s) orally once a day; Duration: 30 day(s) Active Potassium Chloride 20MEQ 1XDAY PO *Please review and pick correct strength-formulat ion from [employer] options. If intended option is not shown, discontinue and re-order from Quick Search* Active Cyanocobalamin 5000 MCG TABLET, EXTENDED RELEASE 1 TAB(S) ORALLY ONCE A DAY *Please review and pick correct strength-formulat ion from [employer] options. If intended option is not shown, discontinue and re-order from Quick Search* Active oxyCODONE HCl 5 MG Tablet 1 tab(s) orally every 6 hours prn Active Crestor 10 MG Tablet 1 tab(s) orally once a day; Duration: 30 day(s) Active MiraLax - POWDER FOR RECONSTITUTION DIRECTED ORALLY ONCE A DAY; Duration: 7 DAY(S) *Please review and pick correct strength-formulat ion from [employer] options. 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 [employer] [address] [address] [place] [address] [id number] Sy Barlow Self - patient is the insured Medical (General) History Surgical History Surgery Date(Month/Year) 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
--- OUTSIDE RECORDS SUMMARY | 2024-11-03 14:37 | XMS_ITS | Encounter Summary ---
Author Organization [facility] Address [address] [place] [address] Care Team Providers Care Field Marketing Coordinator Name Role Phone Gracia Cleaning Dr Primary Care Provider Unavailabl e Encounter Details Date Type Department Care Team (Latest Contact Info) Description 09/25/2024 Travel Social History Tobacco Use Types Packs/Day Years Used Date Smoking Tobacco: Never Smokeless Tobacco: Never Alcohol Use Standard Drinks/Week Comments Never 0 (1 standard drink = 0.6 oz pur e alcohol) Comments Unknown Sex and Gender Information Value Date Recorded Sex Assigned at Not on file Legal Sex Female 9:50 AM EDT Gender Identity Not on file Sexual Orientation Not on file documented as of this encounter Plan of Treatment Upcoming Encounters Date Type Department Care Team (Late st Contact Info) Description 11/13/2024 11:00 AM EDT [facility] [address] [place] [address] Deepa Lama MD [address] [facility] [address] [place] [address] 11/15/2024 10:45 AM EDT Office [facility] [address] [facility] [address] [place] [address] Pina Granados NP [address] [facility] [place] [phone] documented as of this encounter Visit Diagnoses Not on filedocumented in this encounter Care Teams Field Marketing Coordinator Relationship Specialty Start Date End Date Gracia Cleaning Dr. PCP - General 09/18/24 documented as of this encounter
--- OUTSIDE RECORDS SUMMARY | 2024-11-03 14:37 | XMS_ITS | Encounter Summary ---
Author Organization [facility] Address [address] [place] [address] Care Team Providers Care Strickler Attendant Name Role Phone Gracia Cleaning Dr Primary Care Provider Unavailabl e Encounter Details Date Type Department Care Team ([facility] st Contact Info) Description 09/18/2024 Telephone [facility] - [facility] [address] [place], [place] [id number] Deepa Lama MD [address] [facility] [address] [place] [address] Social History Tobacco Use Types Packs/Day Years Used Date Smoking Tobacco: Never Assessed Comments Unknown Sex and Gender Information Value Date Recorded Sex Assigned at Not on file Legal Sex Female 9:50 AM EDT Gender Identity Not on file Sexual Orientation Not on file documented as of this encounter Miscellaneous Notes * Telephone Encounter - Jaclyn Guerrero - 09/18/2024 2:49 PM EDT Contacted the patient and moved the appt up to 09/25 @ 10:45am with Dr Lama. * Telephone Encounter - Jaclyn Guerrero - 09/18/2024 2:49 PM EDT ----- Message from Deepa Lama sent at 09/14/2024 1:10 PM EDT ----- Regarding: Earlier appointment I need to see this patient earlier for his TAVR evaluation due to urgency of it. Please schedule for this coming Wednesday the or the . You can overbook if needed please thank you. documented in this encounter Plan of Treatment Upcoming Encounters Date Type Department Care Team (Late st Contact Info) Description 11/13/2024 11:00 AM EDT [facility] [address] [facility] [address] [place] [address] Deepa Lama MD [address] [facility] [address] [place] [address] 11/15/2024 10:45 AM EDT Office Visit [facility] [address] [facility] [address] [place] [address] Pina Granados, PRINC[employer]LE [employer]RI[employer] HYGIENIST [address] [facility] [place] [phone] documented as of this encounter Visit Diagnoses Not on filedocumented in this encounter Care Teams Strickler Attendant Relationship Specialty Start Date End Date Gracia Cleaning Dr. PCP - General 09/18/24 documented as of this encounter
--- OUTSIDE RECORDS SUMMARY | 2024-11-03 14:37 | XMS_ITS | Clinical Summary ---
Author Organization [facility] Address [address] [place] [address] Care Team Providers Care Facetor Name Role Phone Gracia Cleaning Dr Primary Care Provider Unavailabl e Allergies Active Allergy Reactions Criticality Noted Date Comments Etodolac Itching,Unknown 09/07/2012 etodolac Latex 09/25/2024 Nsaids Itching 09/25/2024 Penicillins Muscle Pain/Myalgia,Unknown 09/25/2024 Chest pressure Phentermine Rash,Unknown Low 09/25/2024 Sulfa Antibiotics Itching 09/07/2012 Sulfamethoxazole-Trimet hoprim Itching 09/25/2024 Valdecoxib Unknown 09/07/2012 Bextra Medications aspirin 81 MG EC tablet Take in the morning. Active Synthroid 100 MCG tablet Take in the morning. Active cephalexin (Keflex) 500 MG capsule Take 500 mg by mouth in the morning. Active doxycycline (Monodox) 100 MG capsule Take 100 mg by mouth in the morning. 06/12/2024 Active Magnesium Citrate 125 MG capsule Take in the morning. Active Crestor 10 MG tablet Take in the morning. Active diclofenac (Voltaren) 75 MG EC tablet Take in the morning and in the evening. Active HYDROcodone-morena taminophen ([place]) 7.5-325 MG tablet Take 1 tablet by mouth every 6 (six) hours. Active levocetirizine (Xyzal) 5 MG tablet Take in the morning. Active Cymbalta [address] capsule Take in the morning. Active potassium chloride CR (Klor-Con M20) 20 MEQ ER tablet Take 20 mEq by mouth. Active lisinopril 5 MG tablet Take 5 mg by mouth in the morning. Active Multiple Vitamin (Multi Vitamin) tablet Take in the morning. Active Cyanocobalamin (B-12) 1000 MCG tablet Take by mouth. Active furosemide (Lasix) 40 MG tablet Take 40 mg by mouth in the morning. Active Budeson-Glycopy rrol-Formoterol (BREZTRI AEROSPHERE IN) Inhale. Activ e Polyethylene Glycol 3350 (MIRALAX PO) Take by mouth. Active Encounters Date Type Department Care Team Description 10/16/2024 Telephone [facility] [address] [facility] [address] [place] [address] Charleen Leblanc RN 09/25/2024 10:45 AM EDT [facility] [address] [facility] [address] [place] [address] Deepa Lama MD Aortic valve stenosis (Primary Dx); Shortness of breath 09/25/2024 Telephone [facility] - [facility] [address] [facility] [address] [place] [address] Deepa Lama MD 09/25/2024 Travel 09/18/2024 Telephone [facility] - [facility] [address] [facility] [address] [place] [address] Deepa Lama MD 08/11/2024 Orders Only [facility] [address] [facility] [address] [place] [phone] ProviderMariela MD from Last 3 Months Social History Tobacco Use Types Packs/Day Years [...] on file Sexual Orientation Not on file Last Filed Vital Signs Vital Sign Reading [...] Mass Index 41.71 09/25/2024 10:38 AM EDT Plan of Treatment Upcoming Encounters Date Type Department Care Team (Late st Contact Info) Description 11/13/2024 11:00 AM EDT [facility] [address] [facility] [address] [place] [address] Deepa Lama MD [address] [facility] [address] [place] [phone] 11/15/2024 10:45 AM EDT [facility] [address] [facility] [address] [place] [address] Pina Granados, TRAUMA DOCTOR [address] [facility] [place] [phone] Health Maintenance Due Date Last Done Comments Bone Density Scan 1940 Lipid Panel 1940 Medicare Annual Wellness (AWV) 1940 Diabetes Screening 1960 Hepatitis B Screening 1960 DTaP/Tdap/Td Vaccines (1 - Tdap) 1961 Pneumococcal Vaccine: 50+ Years (1 of 2 - PCV) 1961 Zoster Vaccines (1 of 2) 1992 Depression Risk Screening 03/01/2024 Fall Risk Screening 03/01/2024 SDOH Screening 03/01/2024 COVID-19 Vaccine ( season) 2024 11/10/2023, 04/13/2023, 11/16/2021, Additional history exists Influenza Vaccine (#1) 2024 4, 01/14/2023, 11/16/2021, Additional history exists BMI Intervention Completed 09/25/2024 HIB Vaccines Aged Out No longer eligi ble based on patient's age to complete this topic HPV Vaccines Aged Out No longer eligi ble based on patient's age to complete this topic Hepatitis A Vaccines Aged Out No long er eligible based on patient's age to complete this topic Hepatitis B Vaccines Aged Out No long er eligible based on patient's age to complete this topic IPV Vaccines Aged Out No longer eligi ble based on patient's age to complete this topic Meningococcal B Vaccine Aged Out No l onger eligible based on patient's age to complete this topic Meningococcal Vaccine Aged Out No charla murtaza eligible based on patient's age to complete this topic Rotavirus Vaccines Aged Out No longer eligible based on patient's age to complete this topic Procedures Procedure Name Priority Date/Time Associated Diagnosis Comments PULMONARY FUNCTION TESTING 10/13/2024 4:24 PM EDT ECHO 2D TAVR 10/13/2024 7:22 AM EDT CARDIOLOGY SCANNED RESULT 10/13/2024 CARDIOLOGY SCANNED RESULT 10/13/2024 CL CATH PROCEDURE 10/12/2024 1:5 7 PM EDT CARDIOLOGY SCANNED RESULT 10/12/2024 CARDIOLOGY SCANNED RESULT 10/12/2024 CARDIOLOGY SCANNED RESULT 10/12/2024 CARDIOLOGY SCANNED RESULT 10/11/2024 TRANSTHORACIC ECHO (TTE) COMPLETE W CONTRAST 10/10/2024 7:29 AM EDT ECG 12-LEAD Routine 09/25/2024 11:07 AM EDT Shortness of breath CARDIOLOGY SCANNED RESULT Routine 08/11/2024 10:19 AM EDT CARDIOLOGY SCANNED RESULT Routine 08/11/2024 10:13 AM EDT from Last 3 Months Results * Pulmonary function testing (10/13/2024 4:24 PM EDT) Anatomical Region Laterality Modality Other Narrative Procedure Note Delfina Barillas MD - 10/13/2024 4:24 PM EDT Patient: SOFIA GILL Age: 84 Years Sex: Female : 1940 Attending: Scott Date of Service: 10/09/24 Referring Provider: Kelby Diagnosis: aortic stenosis L / % FVC: 1.14/ 54 FEV1: 0.93/ 57 FEV1/FVC (Ratio): 81 Poor loop quality. Spirometry demonstrates no airway obstruction The maximum voluntary ventilation reflects the reduced FEV1 Formal lung volume measurements not available. The reduced spirometricvital capacity may reflect lung restriction or reduced effort FEV1 and FVC are reduced with preserved ratio which may represent earlyrestriction or difficulty with maneuver. Electronically Signed on10/13/2024 16:27 EDT KENA HONEYCUTT DO-PUL I have reviewed PFT and agree with the fellow's interpretation. Electronically Signed on10/13/2024 16:33 EDT DELFINA BARILLAS MD-PUL Modified by: DELFINA BARILLAS MD-PULneelima 10/13/24 16:33 EDT us Kena Honeycutt MD PFT ORDERABLES Edited Result - Final * Echo 2d tavr (10/13/2024 7:22 AM EDT) Anatomical Region Laterality Modality Ultrasound 10/13/2024 7:22 AM EDT us Pina Granados TRAUMA DOCTOR CV ECHO PROCEDURES Final Re sult * Cardiology Scanned Result (10/13/2024) Anatomical Region Laterality Modality Other Narrative 10/13/2024 Ordered by an unspecified provider. us Provider Not In System CV STRESS PROCEDURES Karolina l Result * Cardiology Scanned Result (10/13/2024) Anatomical Region Laterality Modality Other Narrative 10/13/2024 Ordered by an unspecified provider. us Provider Not In System CV STRESS PROCEDURES Karolina l Result * CL Cath Procedure (10/12/2024 1:57 PM EDT) Anatomical Region Laterality Modality Other 10/12/2024 1:57 PM EDT Deepa Lama MD CV CARDIAC CATH PROCEDURES Karolina l Result * Cardiology Scanned Result (10/12/2024) Anatomical Region Laterality Modality Other Narrative 10/12/2024 Ordered by an unspecified provider. us Provider Not In System CV STRESS PROCEDURES Karolina l Result * Cardiology Scanned Result (10/12/2024) Anatomical Region Laterality Modality Other Narrative 10/12/2024 Ordered by an unspecified provider. us Provider Not In System CV STRESS PROCEDURES Karolina l Result * Cardiology Scanned Result (10/12/2024) Anatomical Region Laterality Modality Other Narrative 10/12/2024 Ordered by an unspecified provider. Provider Not In System CV STRESS PROCEDURES Karolina l Result * Cardiology Scanned Result (10/11/2024) Anatomical Region Laterality Modality Other Narrative 10/11/2024 Ordered by an unspecified provider. Provider Not In System CV STRESS PROCEDURES Karolina l Result * TRANSTHORACIC ECHO (TTE) COMPLETE W CONTRAST (10/10/2024 7:29 AM EDT) Anatomical Region Laterality Modality Ultrasound 10/10/2024 7:29 AM EDT Deepa Lama MD CV ECHO PROCEDURES Final Result * ECG 12 Lead (09/25/2024 11:07 AM EDT) Deepa Lama MD ECG ORDERABLES Final Result * Cardiology Scanned Result (08/11/2024 10:19 AM EDT) Anatomical Region Laterality Modality Other Historical Provider CV STRESS PROCEDURES Karolina l Result * Cardiology Scanned Result (08/11/2024 10:13 AM EDT) Anatomical Region Laterality Modality Other Historical Provider CV STRESS PROCEDURES Karolina l Result from Last 3 Months Insurance [employer] Care Teams Facetor Relationship Specialty Start Date End Date Gracia Cleaning Dr. PCP - General 09/18/24
--- OUTSIDE RECORDS SUMMARY | 2024-11-03 14:37 | XMS_ITS | Encounter Summary ---
Author Organization [facility] Address [address] [place] [address] Care Team Providers Care Internet Technology Manager Name Role Phone Gracia Cleaning Dr Primary Care Provider Unavailabl e Encounter Details Date Type Department Care Team (Late Contact Info) Description [facility]/16[facility]2024 [facility] [address] [facility] [address] [place] [address] Charleen Leblanc RN Social History Tobacco Use Types Packs/Day Years [...] encounter Miscellaneous Notes * Telephone Encounter - Charleen Leblanc RN - 10/16/2024 1:22 PM EDT Follow up call post TAVR - patient states she is doing very well. She is breathing easier and has more energy. Confirmed follow up appointments, verified she is taking medications and answered all questions and concerns. documented in this encounter Plan of Treatment Upcoming Encounters Date Type Department Care Team ([facility] Contact Info) Description 11/13/2024 11:00 AM EDT [facility] [address] [place] [address] Deepa Lama MD [address] [facility] [address] [place] [address] 11/15/2024 10:45 AM EDT Office Visit [facility] [address] [facility] [address] [place] [address] Pina Granados, PUTTYING AND CALKING SUPERVISOR [address] [facility] [place] [phone] documented as of this encounter Visit Diagnoses Not on filedocumented in this encounter Care Teams Internet Technology Manager Relationship Specialty Start Date End Date Gracia Cleaning Dr. PCP - General 09/18/24 documented as of this encounter
--- OUTSIDE RECORDS SUMMARY | 2024-11-03 14:37 | XMS_ITS | Encounter Summary ---
Author Organization [facility] Address [address] [place] [address] Care Team Providers Care History Tutor Name Role Phone Gracia Cleaning Dr Primary Care Provider Unavailabl e Encounter Details Date Type Department Care Team (Late st Contact Info) Description 09/25/2024 Telephone [facility] [address] [facility] [address] [place], [place] [id number] Deepa Lama MD [address] [facility] [address] [place] [address] Social History Tobacco Use Types [...] encounter Miscellaneous Notes * Telephone Encounter - Deepa Lama MD - 09/25/2024 6:20 PM EDT I called the patient and discussed the logistics for her further testing for TAVR. She will speak with her family and I will call her back in a few days later this week to make final plans. * Telephone Encounter - Allyn Pablo - 09/25/2024 4:33 PM EDT Patient called and left a voicemail stating that she will be unable to be admitted to the hospital tonight. She would like us to schedule the CT and other testing that Dr. Lama is wanting done and let her know when the testing is scheduled. She left her call back number as [phone]. documented in this encounter Plan of Treatment Upcoming Encounters Date Type Department Care Team (Late st Contact Info) Description 11/13/2024 11:00 AM EDT Office Visit [facility] - [facility]ovascular Medicine [address] [facility] [address] [place] [address] Deepa Lama MD [address] [facility] [address] [place] [address] 11/15/2024 10:45 AM EDT [facility] [address] [facility] [address] [place] [address] Pina Granados, LAB ASST [address] [facility] [place] [phone] documented as of this encounter Visit Diagnoses Not on filedocumented in this encounter Care Teams History Tutor Relationship Specialty Start Date End Date Gracia Cleaning Dr. PCP - General 09/18/24 documented as of this encounter
--- OUTSIDE RECORDS SUMMARY | 2024-11-03 14:38 | XMS_ITS | Patient Health Record ---
Author Organization [facility] Address [address] [place] [address] Care Team Providers Care Tube Carrier Name Role Phone Sina Segura Primary Care Provider [phone] Flavia Gomez Unavailable [phone] Migration, Provider Unavailable Unavailable Allergies Allergen (clinical [...] date:07/10/2024 10:12:41 AM Interpretation: Performing Lab:[facility], [facility], [facility] Jacinto Vazquez Notes/Report: NON-FASTING; NON-FASTING; NON-FASTING FASTING:YES [...] LDL-C. Ricky SS et al. BOY. 2013;310(19): 3858-3443 (http://[email or web address]/faq/FLT276) CHOL/HDLC RATIO 3.2 <5.0 (calc) NON HDL CHOLESTEROL 128 <130 mg/dL (calc) For patients with diabetes plus 1 major ASCVD risk factor, treating to a non-HDL-C goal of <100 mg/dL (LDL-C of <70 mg/dL) is considered a therapeutic option. TSH W/REFLEX TO FT4 (09556) Reviewed date:07/10/2024 10:12:41 AM Interpretation: Performing Lab:[facility], [place] Jacinto Vazquez Notes/Report: NON-FASTING; NON-FASTING; NON-FASTING FASTING:YES FASTING: YES TSH W/REFLEX TO FT4 1.25 0.40-4.50 mIU/L VITAMIN D,25-OH,TOTAL,IA (17 306) Reviewed date:07/10/2024 10:12:41 AM Interpretation: Performing Lab:[facility], [place] [facility] Jacinto Vazquez Notes/Report: NON-FASTING; NON-FASTING; NON-FASTING FASTING:YES [...] D, (D2,D3), LC/MS/MS is recommended: order code [id number] (patients >2yrs). See Note 1 Note 1 For additional information, please refer to http://education.Smart Ventures.TeliApp/faq/IUH092 (This link is being provided for informational/ educational purposes only.) Echocardiogram Reviewed date:07/28/2024 12:20:48 PM Interpretation: Performing Lab: Notes/Report: Medications Medication SIG (Take, Route, Frequency, Duration) Notes Start Date End Date Status Cephalexin 500 MG 1 cap(s) orally once a day Active Doxycycline Hyclate 100 MG 1 cap(s) orally once a day Active Levocetirizine Dihydrochloride 5 MG 1 tab(s) orally once a day (in the evening); Duration: 90 days Active Mucinex 600 MG 1 tab(s) orally every 12 hours Active Albuterol Sulfate HFA 108 (90 Base) MCG/ACT 2 puff(s) inhaled every 6 hours as needed for wheezing; Duration: 30 days 11/04/2023 Active HYDROcodone-Acetaminoph en 7.5-325 MG 1 tab(s) orally every 6 hours Active Nystatin 956103 UNIT/GM 1 nilda applied topically 3 times a day; Duration: 14 days 08/25/2021 Active MiraLax - ORALLY ONCE A DAY *Please review and pick correct strength-formulati on from [employer] options. If intended option is not shown, discontinue and re-order from Quick Search* Active Levothyroxine Sodium 100 MCG TAKE 1 TABLET DAILY Active Aspirin Low Dose 81 MG 1 tab orally once a day Active Klor-Con M20 20 MEQ 1 tablet with food Orally Once a day; Duration: 90 days Active Calcium-Vitamin D 600 MG-800 INTL UNITS 1TAB ORALLY TWICE DAILY *Please review and pick correct strength-formulati on from [employer] options. If intended option is not shown, discontinue and re-order from Quick Search* Active Lisinopril 5 MG 1 tab(s) orally once a day; Duration: 90 days Active Furosemide 40 MG 1 tab(s) orally once a day; Duration: 90 days Active COQ10 (OBSOLETE) 100 MG 1 CAP(S) ORALLY ONCE A DAY *Please review for potential replacement for e-prescription and drug interaction check* Active Fluticasone Propionate 50 MCG/ACT 2 sprays nasally once a day; Duration: 30 day(s) 10/21/2017 Active Plavix 75 MG 1 tablet Orally Once a day Active Multivitamin - 1 tab(s) orally once a day; Duration: 30 day(s) Active Diclofenac Sodium 75 MG 1 tab(s) orally 2 times a day; Duration: 90 days Active Cyanocobalamin-Methylco balamin 5000mcg-1 tablet once a day *Please review and pick correct strength-formulati on from [employer] options. If intended option is not shown, discontinue and re-order from Quick Search* Active Rosuvastatin Calcium 10 mg TAKE 1 TABLET DAILY AT BEDTIME Active TUMERICK 500MG ONE TABLET ONCE A DAY *Please review for potential replacement for e-prescription and drug interaction check* Active Cymbalta 60 MG 1 cap(s) orally once a day; Duration: 90 days Active Immunizations Vaccine Route Administration Date Status Comme nts Arexvy IM Intramuscular 01/14/2023 Administered Fluvirin--Influenza vaccine 3+ year IM Intramuscular 12/13/2006 Administered Fluvirin--Influenza vaccine 3+ year IM Intramuscular 01/13/2008 Administered Fluvirin--Influenza vaccine 3+ year IM Intramuscular 11/13/2011 Administered Fluzone High Dose IM Intramuscular 11/09/2019 Administered Fluzone High Dose IM Intramuscular 01/14/2023 Administered H1N1 Vaccine IM Intramuscular 02/14/2009 Administered Influenza (Fluzone)--Medicare only IM Intramuscular 12/05/2014 Administered Influenza (Fluzone)--Medicare only IM Intramuscular 10/21/2017 Administered Influenza-Fluzone 3+years (NON-MEDICARE) IM Intramuscular 11/13/2015 Administered Prevnar PCV-13 (Pneumococcal conjugate 13) IM Intramuscular 04/08/2017 Administered SHINGRIX IM Intramuscular 01/22/2019 Administered Zostavax (Shingles) SC Subcutaneous 12/07/2007 Administere d Problems Problem Type SNOMED Code ICD Code Onset Dates Problem Status W/U Status Risk Notes Problem Obstructive sleep apnea syndrome (disorder) (68588232) Obstructive sleep apnea (adult) (pediatric) (G47.33) Active confirmed Problem Chronic postoperative pain (449270787831374) Other chronic postprocedural pain (G89.28) Active confirmed Problem Seasonal allergic rhinitis (029818091) Other seasonal allergic rhinitis (J30.2) Active confirmed Problem Allergic rhinitis (45654539) Other allergic rhinitis (J30.89) Active confirmed Problem Pain of left knee joint (finding) (299315881643970) Pain in left knee (M25.562) Active confirmed Problem Sciatica (89282640) Sciatica, unspecified side (M54.30) Active confirmed Problem Postmenopausal bleeding (18951792) Postmenopausal bleeding (N95.0) Active confirmed Problem Late effect of medical and surgical care complication (631039390) Infection and inflammatory reaction due to other internal joint prosthesis, sequela (T84.59XS) Active confirmed Problem Artificial knee joint present (624209971533) Presence of unspecified artificial knee joint (Z96.659) Active confirmed Problem Dependence on enabling machine or device (670910258) Dependence on other enabling machines and devices (Z99.89) Active confirmed Problem Hyperlipidaemia (79687837) HLD (hyperlipidemia) (E78.5) Active confirmed Problem Gastroesophageal reflux disease (355068355) GERD (gastroesophageal reflux disease) (K21.9) Active confirmed Problem Hypothyroidism (87053231) Hypothyroidism (E03.9) Active confirmed Problem Gout (84597148) Gout (M10.9) Active confirmed Problem Venous insufficiency of leg (disorder) (270548582) Venous insufficiency (I87.2) Active confirmed Problem Essential hypertension (96951120) HTN (hypertension), benign (I10) Active confirmed Problem Hypokalemia (53156044) Hypokalemia due to loss of potassium (E87.6) Active confirmed Problem Lymphedema (93080487) Lymphedema (I89.0) Active confirmed Problem Body mass index 40+ - morbidly obese (313006559) BMI 40.0-44.9, adult (Z68.41) Active confirmed Problem Arthropathy (673572905) Arthritis involving multiple sites (M12.9) Active confirmed Problem 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 (581098085473473) Coronary artery disease involving belkofski coronary artery of belkofski heart without angina pectoris (I25.10) Active confirmed Problem Osteoarthritis of knee (128847941) Primary osteoarthritis of right knee (M17.11) Active confirmed Problem Recurrent falls (843619896) Recurrent falls (R29.6) Active confirmed Problem Neuropathic pain (577862297) Neuropathic pain (M79.2) Active confirmed Problem Hypoalbuminemia (030280701) Hypoalbuminemia (E88.09) Active confirmed Problem Internal derangement of left knee (89959706731680640) Internal derangement of left knee (M23.92) Active confirmed Problem Recurrent falls (985068274) Falls frequently (R29.6) Active confirmed Problem Aortic stenosis, non-rheumatic (436837922) Nonrheumatic aortic valve stenosis (I35.0) Active confirmed Problem Chronic venous insufficiency (13329324) Chronic venous insufficiency (I87.2) Active confirmed Problem Left anterior kn ee pain (M25.562) Active confirmed Problem Malaise (440585156) Physical khushboo ility (R53.81) Active confirmed Problem Disorder of kidney and/or ureter (090857972) Right renal mass (N28.89) Active confirmed Problem Seasonal allergic rhinitis (812100846) Acute seasonal allergic rhinitis (J30.2) Active confirmed Problem Postmenopausal osteoporosis (735201833) 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) Active confirmed Problem 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 Problem Mild persistent asthma with exacerbation (J45.31) Active confirmed Problem Seasonal allergic rhinitis (838979687) Seasonal allergic rhinitis, unspecified trigger (J30.2) Active confirmed Problem Aortic valve disorder (7190633) Mild aortic stenosis (I35.0) Active confirmed Problem Solitary pulmonary nodule (514949547) Right lower lobe pulmonary nodule (R91.1) Active confirmed Problem Osteopenia following menopause (disorder) (436754092) 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) Active confirmed Problem Hypoproteinemia (8831906) Hypoproteinemia (E77.8) Active confirmed Problem Aortic valve disorder (5982705) Aortic stenosis, severe (I35.0) Active confirmed Problem Internal derangement of right knee (53834189633680935) Internal derangement of right knee (M23.91) Active confirmed Problem Late effect of medical and surgical care complication (788359168) Infected hardware in left lower extremity, sequela (T84.7XXS) Active confirmed Problem Morbid obesity (903153614) Obesity, morbid (more than 100 lbs over ideal weight or BMI > 40) (E66.01) Active confirmed Problem History of heart valve repair with prosthesis (021677080754017) S/P AVR (aortic valve replacement) (Z95.2) Active confirmed Vital Signs Heart Rate 80 /min 10/31/2024 Temperature 97.2 degrees Fahrenheit 10/31/2024 Blood pressure diastolic 72 mm Hg 10/31/2024 Height 59 in 10/31/2024 Blood pressure systolic 118 mm Hg 10/31/2024 Weight 221 lbs 10/31/2024 BMI 44.63 kg/m2 10/31/2024 Encounters Encounter Location Date Provider Diagnosis [facility] [address] [facility] [address] [place] [address] 06/03/2024 Provider Migration Wheezing R06.2 [facility] [address] [facility] [address] [place] [address] 10/31/2024 Flavia Gomez S/P AVR (aortic valv e replacement) Z95.2 ; Hospital discharge follow-up Z09 and Mass of lower inner quadrant of left breast N63.24 [facility] [address] [facility] [address] [place] [address] 02/17/2024 Flavia Gomez Wheezing R06.2 ; IFG (impaired fasting glucose) R73.01 and Obesity, morbid (more than 100 lbs over ideal weight or BMI > 40) E66.01 [facility] [address] [facility] [address] [place], [place] [address] 07/06/2024 Flavia Patricia Hypothyroidism E03.9 ; Medicare [...] BMI 40.0-44.9, adult Z68.41 and Hypokalemia E87.6 [facility] [address] [facility] [address] [place] [address] 08/31/2024 Flavia Gomez Mild persistent asth ma with exacerbation J45.31 [facility] [address] [facility] [address] [place] [address] 11/04/2023 Flavia Gomez Wheezing R06.2 [facility] [address] [place] [address] 07/06/2024 Flavia Patricia [facility] [address] [place] [address] 07/06/2024 Flavia Patricia Mild aortic stenosis I35.0 [facility] [address] [place] [address] 07/25/2024 Flavia Patricia [facility] [address] [place] [address] 07/28/2024 Sina Besson [facility] [address] [place] [address] [address] [place] [address] 07/28/2024 Flavia Patricia [facility] [address] [place] [address] 08/21/2024 Sina Besson [facility] [address] [place] [address] 10/24/2024 Flavia Patricia [facility] [address] [place] [address] 10/31/2024 Flavia Gomez Assessments Encounter Date Diagnosis (ICD Code) Assessment Notes Treatment Notes Treatment Clinical Notes Section Notes 11/04/2023 Wheezing (ICD-10 - R06.2) 02/17/2024 Wheezing [...] 07/06/2024 Mild aortic stenosis (ICD-10 - I35.0) 08/31/2024 Mild persistent asthma with exacerbation (ICD-10 - J45.31) we had Breztri samples available, provided with instructions to use 1 puff BID and monitor effect, rinse mouth after use. consider antibiotics if any progression of symptoms but would like to avoid oral steroids in light of upcoming surgical procedures 10/31/2024 Hospital discharge follow-up (ICD-10 - Z09) 10/31/2024 S/P AVR (aortic valve replacement) (ICD-10 - Z95.2) 10/31/2024 Mass of lower inner quadrant of left breast (ICD-10 - N63.24) 07/06/2024 HLD (hyperlipidemia) (ICD-10 - E78.5) 02/17/2024 Obesity, morbid (more than 100 lbs over ideal weight or BMI > 40) (ICD-10 - E66.01) complicates all aspects of care but insurance does not cover GLP1I for weight loss in this case...no h/o CAD or CVA. 07/06/2024 HTN (hypertension), benign (ICD-10 - I10) [...] 07/06/2024 Hypokalemia (ICD-10 - E87.6) 02/17/2024 Other 08/31/2024 Other Plan Of Treatment Pending Test Test Name Order Date N-CBC 03/15/2006 X-Lipid Profile 03/15/2006 X-Lipid Profile 05/23/2007 Ultrasound : Breast, Left 10/31/2024 Ultrasound : Kidneys, Bilateral 04/04/19 Urinalysis 08/14/2014 [...] H-BUN 07/05/2017 H-CREATININE SERUM 07/05/2017 H-LIPID PANEL 09/09/2015 H-LIPID PANEL 01/10/2008 H-LIPID PANEL 07/17/2013 H-LIPID PANEL 06/07/2014 H-TSH 06/07/2014 H-TSH 09/09/2015 H-TSH 07/17/2013 H-VIT [...] Date [employer] MEDICARE [address] [address] [place] [address] [id number] Sy Barlow Self - patient is the insured Medical (General) History Medical History History ICD Code allergies osteoarthritis, followed by Arthritis [facility] hypercholestrolemia sleep apnea on CPAP hypertension asthma [...] replacement procedure 18 11 left broken leg 2013 revision of lt knee replacement 2015 left knee x 2 2017 Left knee revision 2018 Left knee revision- fell and tore tendon 2018 Left knee- infection 05/2019 Rt knee-pateller tendor reattached 08/18 20 valve replacement 10/12/2024 Hospitalization History Reason Date(Month/Year) [facility] 07/2020 [facility] for valve replacement [facility] surgery- then transferred to [facility] until 09/2019 [facility] then to [facility] x 5 months 2018 revision of lt knee replacement-[facility] Riojas/Cardinal Garcia 2014 broken leg 2014
--- OUTSIDE RECORDS SUMMARY | 2024-11-03 14:38 | XMS_ITS | Clinical Summary ---
Author Organization [facility] Address [address] [place] [address] Care Team Providers Care Artist Relationship Manager Name Role Phone Musa Pollock MD Primary Care Provider [phone] Allergies Active Allergy Reactions Criticality Noted Date Comments Etodolac Itching 09/07/2012 Meloxicam Itching 11/29/2017 Nsaids Itching Penicillins Other (See Comments) Chest pressure Sulfa Antibiotics Itching 09/07/2012 Medications levothyroxine (SYNTHROID) 100 MCG tablet Take 1 tablet by mouth Daily. Active losartan (COZAAR) 50 MG tablet Take 1 tablet by mouth Daily. 0 8 Active DULoxetine (CYMBALTA) 60 MG capsule Take 1 capsule by mouth Daily. 8 Active potassium chloride (K-DUR,KLOR-CON ) 20 MEQ CR tablet Take 20 mEq by mouth 2 (Two) Times a Day. 0 8 Active aspirin 81 MG tablet Take 81 mg by mouth Daily. Active diclofenac (VOLTAREN) 75 MG EC tablet Take 1 tablet by mouth 2 (Two) Times a Day. 8 Active traMADol (ULTRAM) 50 MG tablet Take 2 tablets by mouth 2 (Two) Times a Day. 8 Active rosuvastatin (CRESTOR) 10 MG tablet Take 1 tablet by mouth Every Night. 0 8 Active Cyanocobalamin (B-12) 1000 MCG tablet Take by mouth. Activ e loratadine (CLARITIN) 10 MG tablet Take 10 mg by mouth Daily. Active fluticasone (FLONASE) 50 MCG/ACT nasal spray 2 sprays by Each Nare route Daily. 0 8 Active furosemide (LASIX) 20 MG tablet Take 1 tablet by mouth 2 (Two) Times a Day. 0 8 Active Polyethylene Glycol 3350 (MIRALAX PO) Miralax 17 gram oral powder packet Active Coenzyme Q10 (CO Q 10 PO) Take by mouth. Ac tive TURMERIC CURCUMIN PO Take 1 tablet by mouth Daily. Active Calcium Carb-Cholecalci ferol (CALTRATE 600+D3 SOFT PO) Take 1 tablet by mouth 2 (Two) Times a Day. Active MAGNESIUM PO Take by mouth. Ac tive ciclopirox (LOPROX) 0.77 % gel Apply topically to the appropriate area as directed 2 (Two) Times a Day. Active lisinopril (PRINIVIL,ZESTR IL) 10 MG tablet Take 10 mg by mouth Daily. 0 9 Active Active Problems Problem Noted Date Diagnosed Date Lung nodule 11/29/2017 Family History Medical History Relation Name Comments Alcohol abuse Brother 1 Drug abuse Brother 1 No Known Problems Brother 2 Throat cancer Father Alzheimer's disease Mother Arthritis Mother Transient ischemic attack Mother Relation Name Status Comments Brother 1 Alive Brother 2 Alive Father Mother Social History Tobacco Use Types Packs/Day Years Used Date Smoking Tobacco: Never Smokeless Tobacco: Never Alcohol Use Standard Drinks/Week Comments No 0 (1 standard drink = 0.6 oz pur e alcohol) Abuse Screen Answer Date Recorded Unsafe at Home or Work/School Not on file Feels Threatened by Someone? Not on file 10/2022 Does Anyone Keep You from Co ntacting Others or Doint Things Outside the Home? Not on file 12/07/2022 Physical Sign of Abuse Present Not on file 1 Housing Stability Answer Date Recorded Current Living Arrangements Not on file 10/2022 Potentially Unsafe Housing Conditions Not on martin e 12/07/2022 Family and Community Support Answer Vince e Recorded Help with Day-to-Day Activities Not on file 12/07/2022 Lonely or Isolated Not on file 12/07/2022 Employment Answer Date Recorded Do you want help finding or keeping work or a tia b? Not on file 12/07/2022 Disabilities Answer Date Recorded Concentrating, Remembering, or Making Decisions Difficulty Not on file 12/07/2022 Doing Errands Independently Difficulty Not on fi le 12/07/2022 Education Answer Date Recorded Help with school or training? 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 Not on file Not on file Last Filed Vital Signs Vital Sign Reading Time Taken Comments Blood Pressure 115/62 11/28/2018 12:33 PM EDT Pulse 102 11/28/2018 12:33 PM EDT Temperature 36.7 C (98.1 F) 11/28/2018 12:33 PM EDT Respiratory Rate - - Oxygen Saturation 95% 11/28/2018 12:33 PM EDT Inhaled Oxygen Concentration - - Weight 97.3 kg (214 lb 6.4 oz) 11/28/2018 12:33 PM EDT Height 149.9 cm (4' 11 ) 11/28/2018 12:33 PM EDT Body Mass Index 43.3 11/28/2018 12:33 PM EDT Plan of Treatment Health Maintenance Due Date Last Done Comments DXA SCAN 1942 TDAP/TD VACCINES (1 - Tdap) 1961 COLOGUARD 05/30/1987 COLON CANCER SCREENING 5 YEAR SIGMOIDOSCOPY 05/30/1987 COLONOSCOPY 05/30/1987 COLORECTAL CANCER SCREENING 05/30/1987 CT COLONOGRAPHY 05/30/1987 FECAL OCCULT BLOOD TEST 05/30/1987 FIT Testing (1 year) 05/30/1987 Pneumococcal Vaccine 50+ (1 of 1 - PCV) 1992 ZOSTER VACCINE (1 of 2) 1992 RSV Vaccine - Adults (1 - 1-dose 75+ series) 8 ANNUAL PHYSICAL 11/29/2017 COVID-19 Vaccine (1 - season) 2024 INFLUENZA VACCINE 11/29/2024 Insurance [employer] MEDIC[employer] REPLACE Care Teams Artist Relationship Manager Relationship Specialty Start Date End Date Musa Pollock MD PCP - General 10/31/14
--- OUTSIDE RECORDS SUMMARY | 2024-11-03 14:38 | XMS_ITS | Clinical Summary ---
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 07/20 Aurelia Soto Leukemoid reaction Group B strep agalactiae Sepsis A40.1 (ICD-10-CM ) 07/20 Active 07/20 Aurelia Soto Sepsis due to streptococcus, group B Group B streptococcu s agalactiae infection 866137388 (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 07/20 Aurelia Soto Streptococcus agalactiae infection Disruption of external operation (surgical) wound, subsequent encounter(s) T81.31xD (ICD-10-CM ) 05/08 Resolved 05/08 Aurelia Valera Disruption of external operation (surgical) wound, not elsewhere classified, subsequent encounter custodial (current) use of suppressive antibiotics Z79.2 (ICD-10-CM ) 05/08 Resolved 05/08 Aurelia Valera 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 Benign Essential Hypertension 9310758 (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 07/20 Aurelia Soto Benign essential hypertension ESR, elevated 841873953 (SNOMED CT) Resolved Aurelia Valera Erythrocyte sedimentation rate above reference range custodial (current) use of suppressive antibiotics Z79.2 (ICD-10-CM ) 05/08 Removed 05/08 Aurelia Valera custodial (current) use of antibiotics Disruption of external operation (surgical) wound, subsequent encounter(s) T81.31xD (ICD-10-CM ) 05/08 Removed 05/08 Aurelia Valera Disruption of external operation (surgical) wound, not elsewhere classified, subsequent encounter Adverse drug reaction 228947934 (SNOMED CT) 03/17 Inactive 03/17 Aurelia Valera Opioid analgesic adverse reaction Stasis dermatitis 98997925 (SNOMED CT) 03/09 Active 03/09 Carlos Wright MD Stasis dermatitis Adverse drug reaction 656606957 (SNOMED CT) 03/17 Removed 03/17 Carlos Wright MD Opioid analgesic adverse reaction ESR, elevated 295138264 (SNOMED CT) Removed Carlos Wright MD Erythrocyte [...] limb Other obesity due to excess calories 609410912 (SNOMED CT) Inactive Eileen Aiken Simple obesity Medications Medication Instructions Start Date Stop Date Generic Name NDC Provider DOXYCYCLINE HYCLATE 100 MG CAPS TAKE 1 CAPSULE BY MOUTH ONCE DAILY DIRECTED doxycycline hyclate 20411436083 Tyrell Stock MD CEPHALEXIN 500 MG CAPS TAKE 1 CAPSULE BY MOUTH ONCE DAILY 0 06/12 cephalexin 68638404658 Tyrell Stock MD DOXYCYCLINE MONOHYDRATE 100 MG CAPS Take 1 capsule by mouth once a day 0 4 doxycycline monohydrate 18704741538 Tyrell Stock MD CEPHALEXIN 500 MG CAPS Take 1 capsule by mouth once a day 0 4/ cephalexin 29270091420 Tyrell Stock MD CEPHALEXIN 500 MG CAPS Take 1 capsule by mouth once a day 0 3 cephalexin 29294653860 Leonorreji Torres CEPHALEXIN 500 MG CAPS TAKE 1 CAPSULE BY MOUTH ONCE DAILY 0 06/12 cephalexin 64871618814 Tyrell Stock MD DOXYCYCLINE MONOHYDRATE 100 MG CAPS Take 1 capsule by mouth once a day 0/09 doxycycline monohydrate 92159709555 Tyrell Stock MD CEPHALEXIN 500 MG CAPS Take 1 capsule by mouth once a day 0/09 cephalexin 52066308231 Tyrell Stock MD CEPHALEXIN 500 MG CAPS Take 1 capsule by mouth once a day 0 1 cephalexin 68740588391 Tyrell Stock MD DOXYCYCLINE HYCLATE 100 MG CAPS Take 1 capsule by mouth once a day 0 4 doxycycline hyclate 01000342640 Tyrell Stock MD CEPHALEXIN 500 MG CAPS Take 1 capsule by mouth once a day 0 07/18 cephalexin 09072615578 Tyrell Stock MD HYDROCODONE-ACETAM INOPHEN 5-325 MG TABS hydrocodone-aceta minophen 68424728230 Karrie Sharma DOXYCYCLINE HYCLATE 100 MG CAPS TAKE 1 CAPSULE BY MOUTH ONCE DAILY 0 06/15 doxycycline hyclate 19197308656 Tyrell Stock MD CEPHALEXIN 500 MG CAPS Take 1 capsule by mouth once a day TAKE 1 CAPSULE BY MOUTH ONCE DAILY 0 06/15 cephalexin 59729207993 Tyrell Stock MD CEPHALEXIN 500 MG CAPS Take 1 capsule by mouth once a day 06/09 cephalexin 93976602138 Tyrell Stock MD DOXYCYCLINE HYCLATE 100 MG CAPS Take 1 capsule by mouth once a day 06/09 doxycycline hyclate 29551233930 Tyrell Stock MD CEPHALEXIN 500 MG CAPS Take 1 capsule by mouth once a day 06/11 cephalexin 19290755584 [facility] CEPHALEXIN 500 MG CAPS Take 1 capsule by mouth once a day TAKE 1 CAPSULE BY MOUTH ONCE DAILY 07/11 cephalexin 12932138526 Tyrell Stock MD DOXYCYCLINE HYCLATE 100 MG CAPS Take 1 capsule by mouth once a day 06/11 doxycycline hyclate 22034579454 [facility] DOXYCYCLINE HYCLATE 100 MG CAPS TAKE 1 CAPSULE BY MOUTH ONCE DAILY 07/11 doxycycline hyclate 35012829305 Tyrell Stock MD DOXYCYCLINE HYCLATE 100 MG CAPS Take 1 capsule by mouth once a day 06/13 doxycycline hyclate 42558031770 Tyrell Stock MD CEPHALEXIN 500 MG CAPS Take 1 capsule by mouth once a day 06/13 cephalexin 08701770922 Tyrell Stock MD HYDROCODONE-ACETAM INOPHEN 5-325 MG TABS hydrocodone-aceta minophen 43922794076 Karrie Olivaresde CEPHALEXIN 500 MG CAPS Take 1 capsule by mouth once a day cephalexin 05952198485 Tyrell Stock MD DOXYCYCLINE HYCLATE 100 MG CAPS Take 1 capsule by mouth once a day 06/06 doxycycline hyclate 78960352415 Tyrell Stock MD MAGNESIUM OXIDE -MG SUPPLEMENT 250 MG TABS 2 tablet by mouth twice a day magnesium oxide 43630776504 Umu Carter PANTOPRAZOLE SODIUM 40 MG TBEC Take 1 tablet by mouth once a day pantoprazole 93650150074 Umu Carter FLORASTOR 250 MG CAPS Take capsule by mouth twice a day saccharomyces lovei 67583064134 [facility] ROSUVASTATIN CALCIUM 10 MG TABS Take 1 tablet by mouth once a day rosuvastatin 04154717938 [facility] POTASSIUM CHLORIDE ER 20 MEQ CR-TABS Take tablet by mouth twice a day potassium chloride 54427586885 [facility] FLUTICASONE PROPIONATE 50 MCG/ACT SUSP 2 spray into both nostrils twice a day as needed fluticasone propionate 42842735138 [facility] WARFARIN SODIUM 2 MG TABS Take 1 tablet by mouth once a day warfarin 19195670274 [facility] LISINOPRIL 10 MG TABS Take 1 tablet by mouth once a day lisinopril 66895626225 [facility] CO Q 10 100 MG CAPS Take one by mouth daily coenzyme a62-iwltdiv e 78294388733 [facility] B-12 5000 MCG CAPS Take one by mouth daily cyanocobalamin (vitamin b-12) 66118338824 [facility] DOCUSATE SODIUM 100 MG CAPS Take capsule by mouth twice a day docusate sodium 31652054824 Umu Carter HYDROCODONE-ACETAM INOPHEN 7.5-325 MG TABS tablet by mouth every four hours as needed hydrocodone-aceta minophen 55819413853 Umu Friendx SENOKOT S 8.6-50 MG TABS 2 tablet by mouth every night sennosides-docusa te sodium 90981094874 [facility] DULOXETINE HCL 60 MG CPEP Take 1 capsule by mouth once a day duloxetine 18027245354 [facility] GABAPENTIN 300 MG CAPS Take 1 capsule by mouth once a day gabapentin 52247207366 Umu Carter Adult Aspirin Regimen 81 mg tablet,delayed release (DR/EC) Take 1 tablet by mouth once a day aspirin 98955088530 [facility] LEVOTHYROXINE SODIUM 100 MCG TABS Take 1 tablet by mouth once a day levothyroxine 30951258294 Umu Carter LORATADINE 10 MG TABS Take 1 tablet by mouth once a day loratadine 06827290555 Umu Carter DAILY MULTIVITAMIN CAPS Take 1 capsule by mouth once a day qo-zx-wi-vit d-mungm-enw-coq10 63572864223 Umu Carter DOXYCYCLINE MONOHYDRATE 100 MG CAPS one cap bid 11/04 DOXYCYCLINE MONOHYDRATE 42766829222 Tyrell Stock MD CEPHALEXIN 500 MG CAPS one capsule bid 11/04 CEPHALEXIN 04492253088 Tyrell Stock MD DOXYCYCLINE MONOHYDRATE 100 MG CAPS one cap bid 08/04 DOXYCYCLINE MONOHYDRATE 88320077834 Tyrell Stock MD DOXYCYCLINE MONOHYDRATE 100 MG CAPS one cap bid 05/05 DOXYCYCLINE MONOHYDRATE 25667503005 Tyrell Stock MD CEPHALEXIN 500 MG CAPS two cap every 8 hours 2 CEPHALEXIN 77833998155 Tyrell Stock MD CEPHALEXIN 500 MG CAPS two cap tid 0 CEPHALEXIN 14475363092 Tyrell Stock MD CEPHALEXIN 500 MG CAPS two capsules every 12 hours 11/28 CEPHALEXIN 66152397543 Tyrell Stock MD CEFTRIAXONE SODIUM (IV) SOLR Rocephin 2G IV Q24hrs / [place] [phone] CEFTRIAXONE SODIUM SOLR 95351709710 Rayna Perry CEFTRIAXONE SODIUM (IV) SOLR Rocephin 2G IV Q24hrs / [place] [phone] CEFTRIAXONE SODIUM SOLR 21141106343 Pina Gillespie RN WARFARIN SODIUM 2 MG TABS Take one by mouth daily 4/ WARFARIN SODIUM 01261667166 Umu Carter POTASSIUM CHLORIDE ER 20 MEQ CR-TABS Take by mouth twice a day 2/06 POTASSIUM CHLORIDE 63237332375 Umu Carter MAGNESIUM OXIDE 250 MG TABS 2 tabs twice daily 08/29 MAGNESIUM OXIDE 51681059557 Umu Carter LORATADINE 10 MG TABS Take one by mouth daily 2/06 LORATADINE 31229116990 Umu Carter LISINOPRIL 10 MG TABS Take one by mouth daily 2/ LISINOPRIL 50849356461 Umu Carter FLUTICASONE PROPIONATE 50 MCG/ACT SUSP 2 Juda, Nostrils Both, Juda, BID, PRN 08/29 FLUTICASONE PROPIONATE 83754630052 Umu Carter DOCUSATE SODIUM 100 MG CAPS Take by mouth twice a day 08/29 DOCUSATE SODIUM 92402069540 [facility] B-12 5000 MCG CAPS Take one by mouth daily 2/06 CYANOCOBALAMIN 15409742592 Umu Carter LEVOTHYROXINE SODIUM 100 MCG TABS Take one by mouth daily 05/30 LEVOTHYROXINE SODIUM 05805368926 [facility] SENOKOT S 8.6-50 MG TABS 2 tabs at bedtime 2/06 SENNOSIDES-DOCUSA TE SODIUM 02195070715 Umu Carter PANTOPRAZOLE SODIUM 40 MG TBEC Take one by mouth daily 4 PANTOPRAZOLE SODIUM 37049916768 Umu Carter DAILY MULTIVITAMIN CAPS Take one by mouth daily 2/06 MULTIPLE VITAMINS-MINERALS 27133278650 Umu Carter FLORASTOR 250 MG CAPS Take by mouth twice a day 2/06 SACCHAROMYCES BOULARDII 76227129347 Umu Carter DULOXETINE HCL 60 MG CPEP Take one by mouth daily 4 DULOXETINE HCL 58630596861 Umu Carter ROSUVASTATIN CALCIUM 10 MG TABS Take one by mouth daily 08/29 ROSUVASTATIN CALCIUM 63739412877 Umu Carter CO Q 10 CAPS Take one by mouth daily 04/06 COENZYME Q10 CAPS 62017778612 Umu Carter ADULT ASPIRIN REGIMEN 81 MG ORAL TABLET DELAYED RELEASE Take one by mouth daily 05/30 ASPIRIN 97755480268 Umu Carter GABAPENTIN 300 MG CAPS Take one by mouth daily 08/29 GABAPENTIN 42095206681 Umu Carter HYDROCODONE-ACETAM INOPHEN 7.5-325 MG TABS Q4H/PRN 04/06 HYDROCODONE-ACETA MINOPHEN 66055352726 Umu Carter B-12 100 MCG TABS by mouth daily 07/19 CYANOCOBALAMIN 38667039591 Umu Carter MULTIVITAL ORAL TABLET Daily. 07/19 MULTIPLE VITAMINS-MINERALS 52344790725 Umu Carter ALBUTEROL SULFATE (2.5 MG/3ML) 0.083% NEBU Four times daily as needed. 07/19 ALBUTEROL SULFATE 81581116367 Umu Carter DOCUSATE SODIUM 100 MG CAPS Daily. 07/19 DOCUSATE SODIUM 65841267391 Umu Carter GNP FLUTICASONE PROPIONATE 50 MCG/ACT SUSP 2 sprays to both nostrils as needed. 07/19 FLUTICASONE PROPIONATE 50028847177 Umu Carter SYNTHROID 100 MCG TABS Daily. 07/19 LEVOTHYROXINE SODIUM 75700415486 Umu Carter MIRALAX 17 GM/SCOOP POWD 17g once daily. 07/19 POLYETHYLENE GLYCOL 3350 08080638367 Umu Carter CO Q 10 10 MG CAPS Daily. 07/19 COENZYME Q10 75521025109 [facility] TURMERIC CURCUMIN CAPS Daily. 07/19 TURMERIC CAPS 94788357496 Umu Carter CALCIUM + D + K TABS 600mg daily. 07/19 CALCIUM-VITAMIN D-VITAMIN K TABS 14531879188 [facility] INDAPAMIDE 2.5 MG TABS Daily. 07/19 INDAPAMIDE 08611731649 Umu Carter POTASSIUM CHLORIDE 20 MEQ PACK Twice daily. 07/19 POTASSIUM CHLORIDE 05674280575 [facility] SIMVASTATIN 20 MG TABS 1 tab at bedtime. 07/19 SIMVASTATIN 44924092165 Umu Carter TRAMADOL HCL 50 MG TABS Every 6 hours as needed. 07/19 TRAMADOL HCL 34836773641 Umu Carter DICLOFENAC SODIUM 75 MG TBEC Twice daily--pt's request. 07/19 DICLOFENAC SODIUM 83234286792 Umu Carter PROBIOTIC ACIDOPHILUS ORAL TABLET Daily. 07/19 LACTOBACILLUS 55595289195 Umu Carter KEFLEX 500 MG ORAL CAPSULE by mouth four times a day 07/19 CEPHALEXIN 31326918355 Umu Carter KEFLEX 500 MG ORAL CAPSULE one po qid 06/04 CEPHALEXIN 22694429367 Darby Lynch APRN B-12 100 MCG TABS by mouth daily 2/08 CYANOCOBALAMIN 94235232981 Christine Morguelan OXYCODONE HCL 5 MG CAPS 1-2 tabs every 6 hours as needed for pain. 05/04 OXYCODONE HCL 97285680353 Christine Morguelan COUMADIN 2 MG ORAL TABLET Take once daily for six weeks 05/04 WARFARIN SODIUM 21467021669 Christine Morguelan GABAPENTIN 300 MG CAPS At bedtime. 3 GABAPENTIN 49918450896 Christine Castañeda CYANOCOBALAMIN 1000 MCG/ML SOLN 5000mcg daily. 3 CYANOCOBALAMIN 21015900867 Christine Castañeda MORPHINE SULFATE 15 MG TABS Every 12 hours. 0 3 MORPHINE SULFATE 50398137932 Christine Castañeda CYCLOBENZAPRINE HCL TABLET As needed. 0 3 CYCLOBENZAPRINE HCL TABS 75325163107 Christine Castañeda KEFLEX 500 MG ORAL CAPSULE by mouth four times a day 0 08/01 CEPHALEXIN 91445673144 Inés Wright DOXYCYCLINE HYCLATE 100 MG CAPS 100mg po twice daily 03/30 DOXYCYCLINE HYCLATE 32301689763 Inés Wright DOXYCYCLINE HYCLATE 100 MG CAPS 100mg po twice daily 06/06 DOXYCYCLINE HYCLATE 59553762057 Carlos Wright MD ROCEPHIN SOLUTION RECONSTITUTED 2g IV daily [facility] [phone] FAX 03/09 CEFTRIAXONE SODIUM SOLR 71213711594 Kiara Medrano RN COUMADIN 2 MG ORAL TABLET Take once daily for six weeks 3 WARFARIN SODIUM 92272330406 Nataliia Domingo Baudilio PROBIOTIC ACIDOPHILUS ORAL TABLET Daily. 08/01 LACTOBACILLUS 95881209502 Eileen Aiken ROCEPHIN SOLUTION RECONSTITUTED 2g IV daily [facility] [phone] FAX CEFTRIAXONE SODIUM SOLR 05097468945 Carole Carrasco RN CYCLOBENZAPRINE HCL TABLET As needed. 0 3/06 CYCLOBENZAPRINE HCL TABS 69878323260 Eileen Aiken DICLOFENAC SODIUM 75 MG TBEC Twice daily--pt's request. 0 05/30 DICLOFENAC SODIUM 76511609275 Eileen Aiken TRAMADOL HCL 50 MG TABS Every 6 hours as needed. 6 TRAMADOL HCL 54889529957 Eileen Aiken SIMVASTATIN 20 MG TABS 1 tab at bedtime. 6 SIMVASTATIN 23077361411 Eileen Aiken MORPHINE SULFATE 15 MG TABS Every 12 hours. 3/06 MORPHINE SULFATE 43815333623 Eileen Aiken POTASSIUM CHLORIDE 20 MEQ PACK Twice daily. 4 POTASSIUM CHLORIDE 19283440021 Eileen Aiken INDAPAMIDE 2.5 MG TABS Daily. 6 INDAPAMIDE 93651568523 Eileen Aiken CYANOCOBALAMIN 1000 MCG/ML SOLN 5000mcg daily. 11/08 CYANOCOBALAMIN 70474384347 iEleen Aiken CALCIUM + D + K TABS 600mg daily. 08/01 CALCIUM-VITAMIN D-VITAMIN K TABS 80583101179 Eileen Aiken TURMERIC CURCUMIN CAPS Daily. 05/30 TURMERIC CAPS 86507309493 Eileen Aiken CO Q 10 10 MG CAPS Daily. 6 COENZYME Q10 70174364988 Eileen Aiken MIRALAX 17 GM/SCOOP POWD 17g once daily. 04/11 POLYETHYLENE GLYCOL 3350 85984438939 Eileen Aiken SYNTHROID 100 MCG TABS Daily. 4 LEVOTHYROXINE SODIUM 38674310209 Eileen Attila GABAPENTIN 300 MG CAPS At bedtime. 7 GABAPENTIN 23864311368 Eileen Aiken GNP FLUTICASONE PROPIONATE 50 MCG/ACT SUSP 2 sprays to both nostrils as needed. 6 FLUTICASONE PROPIONATE 71110327999 Eileen Aiken DOCUSATE SODIUM 100 MG CAPS Daily. 7 DOCUSATE SODIUM 36427394850 Eileen Attila ALBUTEROL SULFATE (2.5 MG/3ML) 0.083% NEBU Four times daily as needed. 4 ALBUTEROL SULFATE 55043881029 Eileen Aiken COUMADIN 1 MG ORAL TABLET Once daily for 6 weeks. WARFARIN SODIUM 39642358496 Eileen Aiken OXYCODONE HCL 5 MG CAPS 1-2 tabs every 6 hours as needed for pain. 03/12 OXYCODONE HCL 38667894979 Eileen Aiken MULTIVITAL ORAL TABLET Daily. 0 08/01 MULTIPLE VITAMINS-MINERALS 64846431298 Eileen Aiken ROCEPHIN SOLUTION RECONSTITUTED 2g IV daily [facility] CEFTRIAXONE SODIUM SOLR [phone] Chevy P Medications Administered No information available. 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 Plan of Care Type Date Detail Appointment 09:15 AM Tyrell tSock MD, [address], [address], [place], [address], Pending order Continue oral an tibiotics Pending [...] Procedures Code Procedure Name Date Entry Date G2211 Complex E&M visit add-on (G2211) CPT-[facility] Continue oral antibiotics 20 22/12/15 CPT-83257 CMP [id number] CBC with Differential 2022 CPT-98151 C- reactive protein CPT-96578 Sedimentation Rate (ESR) 202 05/09/15 CPT-[facility] Continue oral antibiotics 20 21/06/16 CPT-27869 CMP [id number] CBC with Differential 2022 CPT-38868 C- reactive protein CPT-05754 Sedimentation Rate (ESR) 202 05/02/16 CPT-[facility] Continue oral antibiotics 20 20/12/16 CPT-29978 CMP [id number] CBC with Differential 2021 CPT-61857 C- reactive protein CPT-04490 Sedimentation Rate (ESR) 202 04/10/16 CPT-[facility] Continue oral antibiotics 20 20/06/10 CPT-[facility] Continue oral antibiotics 20 18/02/06 CPT-[facility] Continue oral antibiotics 20 19/11/06 CPT-61191 CMP [id number] CBC with Differential 2020 CPT-25296 C- reactive protein CPT-84553 Sedimentation Rate (ESR) 202 03/09/06 CPT-[facility] Continue oral antibiotics 20 20/08/07 CPT-[facility] Continue oral antibiotics 20 20/05/07 CPT-54590 CMP [id number] CBC with Differential 2020 CPT-78087 C- reactive protein CPT-19043 Sedimentation Rate (ESR) 202 03/03/07 CPT-labs Labs CPT-Cooral Continue oral antibiotics 17/02/07 CPT-Cooral Continue oral antibiotics 20 19/12/11 CPT-79688 CMP [id number] CBC with Differential 2019 CPT-51348 C- reactive protein CPT-14321 Sedimentation Rate (ESR) 202 CPT-[facility]ooral Continue oral antibiotics 20 18/11/08 CPT-39467 CMP [id number] CBC with Differential 2019 CPT-11566 C- reactive protein CPT-56935 Sedimentation Rate (ESR) 202 CPT-[facility]ooral Continue oral antibiotics 20 18/09/19 CPT-ca Continue IV antibiotics 2019 CPT-oral Discontinue oral antibiotics CPT-ca Continue IV antibiotics 2019 CPT-sl STAT Labs [id number] CBC with Differential 2017 CPT-78067 CMP CPT-19595 Sedimentation Rate (ESR) 201 10/03/08 CPT-54158 C- reactive protein CPT-[facility] Continue oral antibiotics 20 16/05/05 CPT-sl STAT Labs CPT-Cooral Continue oral antibiotics 20 18/03/01 CPT-96356 Unna Boot CPT-PICREM PICC Removal CPT-DC Discontinue [...]
--- NOTE | 2024-11-03 14:39 | US_ITS ---
PROCEDURE INFORMATION: Exam: US Left Breast, Complete Exam date and time: 11/03/2024 2:47 PM Age: 84 years old Clinical indication: Palpable area of concern in the 9 o'clock region, closer to chest than to breast. Overlying bruising, evaluate for possible hematoma. TECHNIQUE: Imaging protocol: Complete ultrasound of all four quadrants of the left breast and the retroareolar regions, including ultrasound of the axilla when performed. Best images possible due to limited mobility. COMPARISON: No relevant prior studies available. FINDINGS: ULTRASOUND: Breast ultrasound findings: Ultrasound of the area of palpable concern demonstrates a 2.1 x 1.1 x 2.2 cm presumed hematoma at the 9 o'clock axis, 10 cm from the nipple. There is no overlying skin thickening, shadowing, or distortion. IMPRESSION: Probable hematoma in the area of palpable concern in the right breast. A follow-up ultrasound in 3 months is recommended to ensure improvement/resolution. ASSESSMENT: BI-RADS Category 3: Probably benign.
== END 2024-11-03 23:59 | disposition home or self-care (01) ==
LOC: RAD 14:35
PROVIDERS: PCP Nurse Practitioner Family; Visit Provider Nurse Practitioner Family
DX: N63.24 Unspecified lump in the left breast, lower inner quadrant (principal); R92.8 Other abnormal and inconclusive findings on diagnostic imaging of breast
CPT/HCPCS: 76641

== ENCOUNTER 2024-11-29 09:32 | Outpatient (CLI) | payer MEDICARE, SELFPAY ==
--- OUTSIDE RECORDS SUMMARY | 2024-06-03 17:30 | XMS_ITS ---
Author Organization [facility] D DEVIN Address [address] [facility] [address] [place] [address] Care Team Providers Care Project Administrative Assistant Name Role Phone Sina Segura Primary Care Provider [phone] Migration, Provider Unavailable Unavailable Allergies Allergen (clinical [...] Drug Allergy Act ivan REASON FOR VISIT [facility] To [facility] Conversion Encounter Medications Medication SIG [...] evening); Duration: 90 days Active POTASSIUM CHLORIDE (WPB-[id number] M20) 20 MEQ TAKE 1 TABLET BY [...] e-prescription and drug interaction check* Active Nystatin 082382 UNIT/GM 1 nilda applied topically 3 times a day; Duration: 14 days 08/25/2021 Active Multivitamin - 1 tab(s) orally once a day; Duration: 30 day(s) Active Fluticasone Propionate 50 MCG/ACT 2 sprays nasally once a day; Duration: 30 day(s) 10/21/2017 Active Cyanocobalamin-Methylco balamin 5000mcg-1 tablet once a day *Please review and pick correct strength-formulati on from [employer] options. If intended option is not shown, discontinue and re-order from Quick Search* Active MiraLax - ORALLY ONCE A DAY *Please review and pick correct strength-formulati on from [employer] options. If intended option is not shown, discontinue and re-order from Quick Search* Active Calcium-Vitamin D 600 MG-800 INTL UNITS 1TAB ORALLY TWICE DAILY *Please review and pick correct strength-formulati on from Etelos options. If intended option is not shown, [...] Active Encounters Encounter Location Date Provider Diagnosis [facility] IM PED DEVIN [address] [place] [address] 06/03/2024 Provider Migration Wheezing R06.2 Assessments Encounter [...] the evening); Duration: 90 days POTASSIUM CHLORIDE (FXR-TFIA-[id number] M20) 20 MEQ TAKE 1 TABLET BY MOUTH EVERY DAY; Duration: 90 *Please review for potential replacement for e-prescription and drug interaction check* Progress Notes * BRIDGET Sy SDOB: [birth year] (84 yo F)Acc No.[id number]:06/03/2024 Patient: Sy ASIF S Provider: Briana roque Migration :1940 A ge:84 Y S ex:Female Date:06/03/2024 Address:[address] [place] [address] [place], [id number] Pcp:Sina Segura Subjective: * Chief Complaints: * [facility] . [facility] Conversion Encounter. * Medical History: * Medications: [...] *Please review and pick correct strength-formulation from Etelos options. If intended option is not shown, discontinue and re-order from Quick Search*, Taking Aspirin Low Dose 81 MG Tablet Delayed Release 1 tab orally once a day , Taking MiraLax - POWDER FOR RECONSTITUTION ORALLY ONCE A DAY , Notes to Pharmacist: *Please review and pick correct strength-formulation from Etelos options. If intended option is not shown, discontinue and re-order from Quick Search*, Taking TUMERICK 500MG TABLET ONE TABLET ONCE A DAY , Notes to Pharmacist: *Please review for potential replacement for e-prescription and drug interaction check*, Taking Cyanocobalamin-Methylcobalamin , Notes to Pharmacist: 5000mcg-1 tablet once a day *Please review and pick correct strength-formulation from [employer]os options. If intended option is not shown, discontinue and re-order from Quick Search*, Taking Multivitamin - Tablet 1 tab(s) orally once a day , Taking Fluticasone Propionate 50 MCG/ACT Suspension 2 sprays nasally once a day , Taking Nystatin 689511 UNIT/GM Powder 1 nilda applied topically 3 [...] 180, Refills 1; S tart POTASSIUM CHLORIDE ([id number] M20) TABLET, EXTENDED RELEASE, 20 MEQ, TAKE 1 TABLET BY MOUTH EVERY DAY, 90, 90 TABLET, Refills 0, Notes to Pharmacist: *Please review for potential replacement for e-prescription and drug interaction check*; S tart Furosemide Tablet, 40 MG, 1 tab(s), orally, once a day, 90 days, 90 Tablet, Refills 1. ? * * Electronic signature of Prov ider Migration on 11/29/2024 at 09:38 AM EDT Sign off status: Pending * Provider: Briana roque Migration Date: 0 06/03/2024 Generated for Corrina brito/Kirstin/Marli on: 1 09:38 AM EDT
--- OUTSIDE RECORDS SUMMARY | 2024-08-05 17:30 | XMS_ITS ---
Author Organization [facility] dicine Address [address] [place] [address] Care Team Providers Care Rn Correctional Name Role Phone Migration, Provider Unavailable Unavailable Allergies Allergen (clinical drug ingredient) Drug/Non Drug Allergy documented on EMR Reaction Allergy Type Onset Date Status SULFA, LATEX (uncoded) Unknown Allergy Active etodolac Etodolac Unknown Drug Allergy Active naproxen Naprosyn Unknown Drug Allergy Active Penicillin Unknown Drug Allergy Active phentermine Phentermine Unknown Drug Allergy Act ivan meloxicam Mobic Unknown Drug Allergy Active Bextra Unknown Drug Allergy [facility] Conversion Encounter Medications Medication SIG (Take, Route, Frequency, Duration) Notes Start Date End Date Status traMADol HCl 50 MG Tablet 1 tab(s) orally every 4 hours prn Active Levothyroxine Sodium 100 MCG Tablet 1 tab(s) orally once a day; Duration: 30 day(s) Active Ventolin HFA 108 (90 Base) MCG/ACT Aerosol Solution 2 puff(s) inhaled 4 times a day; Duration: 30 day(s) Active Potassium Chloride 20MEQ 1XDAY PO *Please review and pick correct strength-formulat ion [facility]. If intended option is not shown, discontinue and re-order from Quick Search* Active oxyCODONE HCl 5 MG Tablet 1 tab(s) orally every 6 hours prn Active Lisinopril 10 MG Tablet 1 tab(s) orally once a day; Duration: 30 day(s) Active Levocetirizine Dihydrochloride 5 MG Tablet 1 tab(s) orally once a day (in the evening); Duration: 30 day(s) Active Lasix 40 MG Tablet 1 tab(s) orally once a day; Duration: 30 day(s) Active MiraLax - POWDER FOR RECONSTITUTION DIRECTED ORALLY ONCE A DAY; Duration: 7 DAY(S) *Please review and pick correct strength-formulat ion from [employer] options. If intended option is not shown, discontinue and re-order from Quick Search* Active Magnesium Citrate 125 MG Capsule 2 cap(s) orally once a day Active Gabapentin 300 MG Capsule 1 cap(s) orally 3 times a day; Duration: 30 day(s) Active Fluticasone Propionate 50 MCG/ACT Suspension 1 spray(s) intranasally once a day; Duration: 30 day(s) Active Diclofenac Sodium 75 MG Tablet Delayed Release 1 tab(s) orally 2 times a day; Duration: 30 day(s) Active Keflex 500 MG CAPSULE 1 CAP(S) ORALLY EVERY 12 HOURS; Duration: 10 DAY(S) *Please review and pick correct strength-formulat ion from [employer] options. If intended option is not shown, discontinue and re-order from Quick Search* Active Cymbalta 60 MG Capsule Delayed Release Particles 1 cap(s) orally once a day; Duration: 30 day(s) Active Colace 100 MG Capsule 1 cap(s) orally 2 times a day Active Caltrate 600+D Plus Minerals 600-800 MG-UNIT Tablet 1 tab(s) orally 2 times a day; Duration: 30 day(s) Active Cyanocobalamin 5000 MCG TABLET, EXTENDED RELEASE 1 TAB(S) ORALLY ONCE A DAY *Please review and pick correct strength-formulat ion from [employer] options. If intended option is not shown, discontinue and re-order from Quick Search* Active Crestor 10 MG Tablet 1 tab(s) orally once a day; Duration: 30 day(s) Active COQ10 (OBSOLETE) 300 MG CAPSULE 1 CAP(S) ORALLY ONCE A DAY *Please review for potential replacement for e-prescription and drug interaction check* Active Aspirin 81 MG Tablet Delayed Release 1 tab(s) orally once a day; Duration: 30 day(s) Active Encounters Encounter Location Date Provider Diagnosis [address] [address] 08/05/2024 Provider Migration Plan Of Treatment No Information Progress Notes * Chase BARLOWOB:1940 (84 yo F)Acc No.[id number]:08/05/2024 Patient: Nevin garcia Sy Provider: :1940 A ge:84 Y S ex:Female Date:08/05/2024 Address:[address] [place] [address] Subjective: * Chief Complaints: * M ultum To [facility] Conversion Encounter * Medications: T akingAspirin 81 MG Tablet Delayed Release 1 tab(s) orally once a day Caltrate 600+D Plus Minerals 600-800 MG-UNIT Tablet 1 tab(s) orally 2 times a day Colace 100 MG Capsule 1 cap(s) orally 2 times a day COQ10 (OBSOLETE) 300 MG CAPSULE 1 CAP(S) ORALLY ONCE A DAY , Notes to Pharmacist: *Please review for potential replacement for e-prescription and drug interaction check*Crestor 10 MG Tablet 1 tab(s) orally once a day Cyanocobalamin 5000 MCG TABLET, EXTENDED RELEASE 1 TAB(S) ORALLY ONCE A DAY , Notes to Pharmacist: *Please review and pick correct strength-formulation from [employer] options. If intended option is not shown, discontinue and re-order from Quick Search*Cymbalta 60 MG Capsule Delayed Release Particles 1 cap(s) orally once a day Diclofenac Sodium 75 MG Tablet Delayed Release 1 tab(s) orally 2 times a day Fluticasone Propionate 50 MCG/ACT Suspension 1 spray(s) intranasally once a day Gabapentin 300 MG Capsule 1 cap(s) orally 3 times a day Keflex 500 MG CAPSULE 1 CAP(S) ORALLY EVERY 12 HOURS , Notes to Pharmacist: *Please review and pick correct strength-formulation from [employer] options. If intended option is not shown, discontinue and re-order from Quick Search*Lasix 40 MG Tablet 1 tab(s) orally once a day Levocetirizine Dihydrochloride 5 MG Tablet 1 tab(s) orally once a day (in the evening) Lisinopril 10 MG Tablet 1 tab(s) orally once a day Magnesium Citrate 125 MG Capsule 2 cap(s) orally once a day MiraLax - POWDER FOR RECONSTITUTION DIRECTED ORALLY ONCE A DAY , Notes to Pharmacist: *Please review and pick correct strength-formulation from [employer] options. If intended option is not shown, discontinue and re-order from Quick Search*oxyCODONE HCl 5 MG Tablet 1 tab(s) orally every 6 hours , Notes to Pharmacist: prnPotassium Chloride 20MEQ 1XDAY PO , Notes to Pharmacist: *Please review and pick correct strength-formulation from [employer] options. If intended option is not shown, discontinue and re-order from Quick Search*Levothyroxine Sodium 100 MCG Tablet 1 tab(s) orally once a day traMADol HCl 50 MG Tablet 1 tab(s) orally every 4 hours , Notes to Pharmacist: prnVentolin HFA 108 (90 Base) MCG/ACT Aerosol Solution 2 puff(s) inhaled 4 times a day Taking Aspirin 81 MG Tablet Delayed Release 1 tab(s) orally once a day Taking Caltrate 600+D Plus Minerals 600-800 MG-UNIT Tablet 1 tab(s) orally 2 times a day Taking Colace 100 MG Capsule 1 cap(s) orally 2 times a day Taking COQ10 (OBSOLETE) 300 MG CAPSULE 1 CAP(S) ORALLY ONCE A DAY , Notes to Pharmacist: *Please review for potential replacement for e-prescription and drug interaction check*Taking Crestor 10 MG Tablet 1 tab(s) orally once a day Taking Cyanocobalamin 5000 MCG TABLET, EXTENDED RELEASE 1 TAB(S) ORALLY ONCE A DAY , Notes to Pharmacist: *Please review and pick correct strength-formulation from [employer] options. If intended option is not shown, discontinue and re-order from Quick Search*Taking Cymbalta 60 MG Capsule Delayed Release Particles 1 cap(s) orally once a day Taking Diclofenac Sodium 75 MG Tablet Delayed Release 1 tab(s) orally 2 times a day Taking Fluticasone Propionate 50 MCG/ACT Suspension 1 spray(s) intranasally once a day Taking Gabapentin 300 MG Capsule 1 cap(s) orally 3 times a day Taking Keflex 500 MG CAPSULE 1 CAP(S) ORALLY EVERY 12 HOURS , Notes to Pharmacist: *Please review and pick correct strength-formulation from [employer] options. If intended option is not shown, discontinue and re-order from Quick Search*Taking Lasix 40 MG Tablet 1 tab(s) orally once a day Taking Levocetirizine Dihydrochloride 5 MG Tablet 1 tab(s) orally once a day (in the evening) Taking Lisinopril 10 MG Tablet 1 tab(s) orally once a day Taking Magnesium Citrate 125 MG Capsule 2 cap(s) orally once a day Taking MiraLax - POWDER FOR RECONSTITUTION DIRECTED ORALLY ONCE A DAY , Notes to Pharmacist: *Please review and pick correct strength-formulation from [employer] options. If intended option is not shown, discontinue and re-order from Quick Search*Taking oxyCODONE HCl 5 MG Tablet 1 tab(s) orally every 6 hours , Notes to Pharmacist: prnTaking Potassium Chloride 20MEQ 1XDAY PO , Notes to Pharmacist: *Please review and pick correct strength-formulation from [employer] options. If intended option is not shown, discontinue and re-order from Quick Search*Taking Levothyroxine Sodium 100 MCG Tablet 1 tab(s) orally once a day Taking traMADol HCl 50 MG Tablet 1 tab(s) orally every 4 hours , Notes to Pharmacist: prnTaking Ventolin HFA 108 (90 Base) MCG/ACT Aerosol Solution 2 puff(s) inhaled 4 times a day * Allergies: B extraEtodolacMobicNaprosynPenicillinPhentermineSULFA, LATEX * Electronic signature of Prov ider Migration on 11/29/2024 at 09:43 AM EDT Sign off status: Pending * Provider: Date: 0 08/05/2024 Generated for Corrina brito/Kirstin/Keyshaitting on: 1 09:43 AM EDT
--- OUTSIDE RECORDS SUMMARY | 2024-10-31 06:45 | XMS_ITS ---
Author Organization [facility] D DEV[facility] Address [address] [facility] [address] [place] [address] Care Team Providers Care Security System Analyst Name Role Phone ColtonSina Primary Care Provider [phone] Flavia Gomez Unavailable [phone] Allergies Allergen (clinical drug ingredient) Drug/Non Drug [...] ivan Results Component Value Reference Range Notes Ultrasound : Breast, Left Reviewed date:11/09/2024 11:29:04 AM Interpretation: Performing Lab: Notes/Report: Reason For Referral Reason LEFT breast US Diagnosis 1 Mass of lower inner quadrant of left breast (N63.24) Referral Organization [facility]DA [facility] Referring Provider First Name Flavia Referring Provider Last Name Patricia Referring Provider Speciality Family Pra ctice Referred Organization [facility] Referred Address [address] [facility], [place], [place],[address],[place] Referred Provider Specialty Diagnostic R adiology General Geetha Torres 2024 11:12:27 AM >sent to [facility] to schedule Referral Priority Routine REASON FOR VISIT [facility] D/C 10/13/2024, had valve replaced, found lump in left breast Medications Medication SIG (Take, Route, Frequency, Duration) Notes Start Date End Date Status Cymbalta 60 MG 1 cap(s) orally once a day; Duration: 90 days Active Rosuvastatin Calcium 10 mg TAKE 1 TABLET DAILY AT BEDTIME Active Diclofenac Sodium 75 MG 1 tab(s) orally 2 times a day; Duration: 90 days Active Furosemide 40 MG 1 tab(s) orally once a day; Duration: 90 days Active Lisinopril 5 MG 1 tab(s) orally once a day; Duration: 90 days Active Klor-Con M20 20 MEQ 1 tablet with food Orally Once a day; Duration: 90 days Active Levothyroxine Sodium 100 MCG TAKE 1 TABLET DAILY Active Levocetirizine Dihydrochloride 5 MG 1 tab(s) orally once a day (in the evening); Duration: 90 days Active Nystatin 160806 UNIT/GM 1 nilda applied topically 3 times a day; Duration: 14 days 08/25/2021 Active Albuterol Sulfate HFA 108 (90 Base) MCG/ACT 2 puff(s) inhaled every 6 hours as needed for wheezing; Duration: 30 days 11/04/2023 Active Cyanocobalamin-Methylco balamin 5000mcg-1 tablet once a day *Please review and pick correct strength-formulati on from [employer] options. If intended option is not shown, discontinue and re-order from Quick Search* Active Multivitamin - 1 tab(s) orally once a day; Duration: 30 day(s) Active Fluticasone Propionate 50 MCG/ACT 2 sprays nasally once a day; Duration: 30 day(s) 10/21/2017 Active Calcium-Vitamin D 600 MG-800 INTL UNITS 1TAB ORALLY TWICE DAILY *Please review and pick correct strength-formulati on from [employer] options. If intended option is not shown, discontinue and re-order from Quick Search* Active Aspirin Low Dose 81 MG 1 tab orally once a day Active MiraLax - ORALLY ONCE A DAY *Please review and pick correct strength-formulati on from [employer] options. If intended option is not shown, discontinue and re-order from Quick Search* Active Cephalexin 500 MG 1 cap(s) orally once a day Active TUMERICK 500MG ONE TABLET ONCE A DAY *Please review for potential replacement for e-prescription and drug interaction check* Active HYDROcodone-Acetaminoph en 7.5-325 MG 1 tab(s) orally every 6 hours Active Mucinex 600 MG 1 tab(s) orally every 12 hours Active Doxycycline Hyclate 100 MG 1 cap(s) orally once a day Active Plavix 75 MG 1 tablet Orally Once a day Active COQ10 (OBSOLETE) 100 MG 1 CAP(S) ORALLY ONCE A DAY *Please review for potential replacement for e-prescription and drug interaction check* Active Metoprolol Tartrate 25 MG 1/2 tab Orally Twice a day Active Problems Problem Type SNOMED Code ICD Code Onset Dates Problem Status W/U Status Risk Notes Problem History of heart valve repair with prosthesis (354169306552081 ) S/P AVR (aortic valve replacement) (Z95.2) Active confirmed Problem Obstructive sleep apnea syndrome (00636946) SHERRY on CPAP (G47.33) Active confirmed Problem Morbid obesity (036172715) Severe obesity (BMI >= 40) (E66.01) Active confirmed Vital Signs Temperature 97.2 degrees Fahrenheit 11/01/19 25 Heart Rate 80 /min 10/31/2024 Blood pressure systolic 118 mm Hg 11/01/19 25 Blood pressure diastolic 72 mm Hg 025 Height 59 in 10/31/2024 Weight 221 lbs 10/31/2024 BMI 44.63 kg/m2 10/31/2024 Encounters Encounter Location Date Provider Diagnosis Merged with [facility] [address] [facility] [address] [place] [address] 10/31/2024 Flavia Gomez S/P AVR (aortic valve replacement) Z95.2 ; Hospital discharge follow-up Z09 ; Mass of lower inner quadrant of left breast N63.24 ; SHERRY on CPAP G47.33 and Severe obesity (BMI >= 40) E66.01 Assessments Encounter Date Diagnosis (ICD Code) Assessment Notes Treatment Notes Treatment Clinical Notes Section Notes 10/31/2024 S/P AVR (aortic valve replacement) (ICD-10 - Z95.2) heart sounds today are normal, tolerating plavix and has cardiology FU arranged 10/31/2024 Hospital discharge follow-up (ICD-10 - Z09) records requested 10/31/2024 Mass of lower inner quadrant of left breast (ICD-10 - N63.24) recommend US for initial imaging...hopefu l this is hematoma. last mammogram several years ago because of her significant physical debility 10/31/2024 SHERRY on CPAP (ICD-10 - G47.33) still working to obtain coverage of Zepbound to assist with management of this and her morbid obesity 10/31/2024 Severe obesity (BMI >= 40) (ICD-10 - E66.01) Plan Of Treatment Referrals Referral Date Details 10/31/2024 10/31/2024, LEFT lashaun ast US, [address], [place], [address], Next Appt Details Follow Up: 6 Months,Grecia juarez son: Progress Notes * Sy GILL SDOB: [birth year] (84 yo F)Acc No.[id number]:10/31/2024 HOSP F/U Patient: Sy ASIF Provider: ALMA Patel :1940 A ge:84 Y S ex:Female Date:10/31/2024 Address:[address] [place] [address] [place], [id number] Pcp:Sina Segura Subjective: * Chief Complaints: * 1 . [facility] D/C 10/13/2024, had valve replaced, found lump in left breast. * HPI: I ntrim History: Seen today to FU since discharge from [facility] following TAVR. She reports no immediate complications. Cannot really say that she feels any different. Has FU arranged both with local cardiology and with surgical team at [facility]. Metoprolol was added for better HR control No fevers since return home. No CP or palpitations and no change in SOA. Edema is stable, chronic lymphedema. She does note a palpable lump in the left breast, lower inner quadrant, that she has just noted. Does report having several echos during the hospital stay and has some bruising in this region. Transition of care visit from hospital D ate of admission to hospital: 0 10/09/2024, D ate of receipt of hospital admission report: 0 11/01/2024,?Date of discharge from hospital: 0 10/13/2024, D ate of receipt of hospital discharge summary: 0 11/01/2024, D ischarge medications reviewed and reconciled from hospital: M edications changed (e.g. discontinued, changed or added). * ROS: R ESPIRATORY: See HPI Y es. n o C ough. C ARDIOLOGY: See HPI Y es. C ONSTITUTIONAL: no L oss of appetite. n o F ever. W eakness?yes, a t baseline. F atigue yes, a t baseline. D ERMATOLOGY: no R tess. G ASTROENTEROLOGY: no V omiting. n o D iarrhea. U ROLOGY: no D ifficulty urinating. n o B lood in urine. * Medical History: A llergies, osteoarthritis, followed by [facility], Hypercholestrolemia, sleep apnea on CPAP, Hypertension, Asthma, [...] 2013, revision of lt knee replacement-[facility] 2014, [facility] then to [facility] x 5 months 2017, [facility] for surgery- then transferred to [facility] until 09/2019, [facility] [place] 07/2020, [facility] for valve replacement 09/2024. * Family History: F ather: . M other: . P aternal Grand Father: . P aternal Grand Mother: . M aternal Grand Father: . M aternal Grand Mother: . Siblings: alive. C hilen: alive. 2 brother(s) - healthy. 2 son(s) - healthy. . * Social History: S moking: no A re you a:: nonsmoker. R ecreational drug use: no. Exercise: no. Home smoke detector use: yes. Caffeine: yes, occasional coffee,1 soda daily or less. Living Will: Yes. Alcohol: no. Sexually active: no. Travel outside [place]: no, Mariah. 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 * Medications: T aking Metoprolol Tartrate 25 MG Tablet 1/2 tab Orally Twice a day , Taking Plavix 75 MG Tablet 1 tablet Orally [...] *Please review and pick correct strength-formulation from [employer] options. If intended option is not shown, discontinue and re-order from Quick Search*, Taking Aspirin Low Dose 81 MG Tablet Delayed Release 1 tab orally once a day , Taking MiraLax - POWDER FOR RECONSTITUTION ORALLY ONCE A DAY , Notes to Pharmacist: *Please review and pick correct strength-formulation from [employer] options. If intended option is not shown, discontinue and re-order from Quick Search*, Taking TUMERICK 500MG TABLET ONE TABLET ONCE A DAY , Notes to Pharmacist: *Please review for potential replacement for e-prescription and drug interaction check*, Taking Cyanocobalamin- Methylcobalamin , Notes to Pharmacist: 5000mcg-1 tablet once a day *Please review and pick correct strength-formulation from [employer] options. If intended option is not shown, discontinue and re-order from Quick Search*, Taking Multivitamin - Tablet 1 tab(s) orally once a day , Taking Fluticasone Propionate 50 MCG/ACT Suspension 2 sprays nasally once a day , Taking Nystatin 721519 UNIT/GM Powder 1 nilda applied topically 3 [...] BP: 118/72, Ht: 59, Wt: 221, BMI:44.63. * Examination: G eneral Examination: General Pleasant and Cooperative, NAD on RA,, Overweight,. Breasts : e cchymosis along the left lower breast with palpable lump between two areas of bruising left lower inner quadrant. Heart: R egular Rate and Rhythm, no murmur, rubs or gallops. Lungs: LCTAB, No wheezes, crackles or rhonchi, Good air movement,. Abdomen: soft, NT/ND, BS present. Skin: mildly erythematous bilat lower extremities but no warmth, mildly tender, no active drainage, healing abrasion left lower leg. Peripheral pulses: n ormal (2+) bilaterally. Extremities: limited ROM both lower extremities and extensive surgical scarring. neck supple,. Psych N ormal Mood/Affect. Assessment: * Assessment: 1. S /P AVR (aortic valve replacement) - Z95.2 (Primary) 2 . H ospital discharge follow-up - Z09 3 . M ass of lower inner quadrant of left breast - N63.24? 4. O SA on CPAP - G47.33 5 . S evere obesity (BMI >= 40) - E66.01 Plan: * Treatment: 2. H ospital discharge follow-up Clinical Notes: records requested 3. M ass of lower inner quadrant of left breast I maging: Ultrasound : Breast, Left * Clinical Notes: recommend US for initial imaging...hopeful this is hematoma. last mammogram severalyears ago because of her significant physical debility? Referral To:Diagnostic Radiology ?Reason:LEFT breast US 4.?SHERRY on CPAP? Clinical Notes: still working to obtain coverage of Zepbound to assist with management of this and her morbid obesity?? * Procedure Codes: 1 111F DSCHR MED/CURENT MED MERGE * Follow Up: 6 Months,prn * * Sign off status: Completed true * Provider: ALMA Patel Date: 0 10/31/2024 Generated for Corrina brito/Kirstin/Keyshaitting on: 1 09:49 AM EDT History and Physical Notes * HPI (History of Present Illness) Category Sub-Category Detail Notes Category Not es Intrim History Transition of care v isit from hospital Date of admission to hospital:: 10/09/2024 Date of receipt of hospital admission re port:: 11/01/2024 Date of discharge from hospital:: 2024 Date of receipt of hospital discharge noland mmary:: 11/01/2024 Discharge medications review ed and reconciled from hospital:: Medications changed (e.g. discontinued, changed or added) Examination Category Sub-Category Detail Notes Category Not es General Examination Heart: Regular Rate and Rhythm, no murmur, rubs or gallops Lungs: LCTAB, No wheezes, c rackles or rhonchi, Good air movement, Abdomen: soft, NT/ND, BS pres ent Extremities: limited ROM both low er extremities and extensive surgical scarring Skin: mildly erythematous bilat lower extremities but no warmth, mildly tender, no active drainage, healing abrasion left lower leg Breasts : ecchymosis along the left lower breast with palpable lump between two areas of bruising left lower inner quadrant Peripheral pulses: normal (2+) bilatera lly neck supple, General Pleasant and Coopera tive, NAD on RA,, Overweight, Psych Normal Mood/Affect Consultation Request Notes Referral Date Referring Provider Referred Provider Not es 10/31/2024 Flavia Gomez , LEFT breast US
--- OUTSIDE RECORDS SUMMARY | 2024-11-13 11:00 | XMS_ITS | Encounter Summary ---
Author Organization [facility] Address [address] [place] [address] Care Team Providers Care Historical Archeologist Name Role Phone Gracia Cleaning Dr Primary Care Provider Unavailabl e Reason for Visit * Reason Comments 6 week f/u Encounter Details Date Type Department Care Team (Latest Contact Info) Description 11/13/2024 11:00 AM EDT [facility] [address] [facility] [address] [place] [address] Deepa Lama MD [address] [facility] [address] [place] [address] History of bioprosthetic transcatheter aortic [...] not included. Structural Heart & Valve Intervention [facility] Cardiology Chief Complaint Patient presents with 6 [...] recorder implanted due to irregular heartbeats in [place]. The cardiac catheterization revealed no significant stenosis; [...] will continue close follow-up with her primary buildings and grounds supervisor. I will follow-up the patient in 1 [...] will continue close follow-up with her primary buildings and grounds supervisor. I will follow-up the patient in 1 year per TVT guidelines. EKG today in office shows heart rate 61 with sinus rhythm first-degree AV block. She has a loop recorder from the past. Will plan to hold her metoprolol due to occasional bradycardia follow-up with her primary cardiology physician. Deepa Lama MD Structural Heart & Valve Disease [facility] Interventional Cardiology - [facility] ([facility] Director Of Golf, [facility] [employer] [phone] 11/13/2024 [1] Current Outpatient Medications: aspirin 81 MG EC tablet, Take in the morning., Disp: , Rfl: Xjfwfpt-Onwmtmatbee-Ctxpvmkksh (BREZTRI AEROSPHERE IN), Inhale., Disp: , Rfl: [...] in the morning., Disp: , Rfl: HYDROcodone-acetaminophen ([place]) 7.5-325 MG tablet, Take 1 tablet by [...] Upcoming Encounters Date Type Department Care Team ([facility] st Contact Info) Description 11/12/2025 11:15 AM EDT Office Visit [facility] - Cardiovascular Medicine [address] [facility] [address] [place] [address] Deepa Lama MD [address] [facility] [address] [place] [address] documented as of this encounter [...] Primary documented in this encounter Care Teams Historical Archeologist Relationship Specialty Start Date End Date Gracia Cleaning Dr. PCP - General 09/18/24 documented as of this encounter
--- OUTSIDE RECORDS SUMMARY | 2024-11-15 10:45 | XMS_ITS | Encounter Summary ---
Author Organization [facility] Address [address] [place] [address] Care Team Providers Care Machine Setup Operator Name Role Phone Gracia Cleaning Dr Primary Care Provider Unavailabl e Reason for Visit * Reason Comments Follow-up Encounter Details Date Type Department Care Team (Latest Contact Info) Description 11/15/2024 10:45 AM EDT Office Visit [facility] [address] [place] [address] Pina Granados, MANAGER SALES AND MARKETING [address] [place] [address] Follow-up arranged (Primary Dx); Severe [...] in this encounter Progress Notes * Zuleika HernadnezSORAIDA - 11/15/2024 10:45 AM EDT Images from [...] as prescribed. They have seen their primary lead blender Dr Lama on Wednesday of this week. [...] I incomplete atrioventricular block 11/09/2024 Morbid obesity ([facility]/HCC) 11/09/2024 Neuropathic pain 11/09/2024 Nodule of lung 11/29/2017 Obstructive sleep apnea syndrome 11/09/2024 Onychomycosis 11/09/2024 Osteoarthritis of knee 11/09/2024 Angina, class III ([facility]) 11/09/2024 Pain associated with internal prosthetic device ([facility]) 09/05/2015 Pain of left knee joint 11/09/2024 Peripheral vascular disease ([facility]) 11/09/2024 Post-traumatic gonarthrosis, bilateral 11/09/2024 Postmenopausal bleeding [...] Instructions aspirin 81 MG EC tablet Daily Bchsshm-Xfrqoesicmt-Jyccjpczmb (BREZTRI 3point5.comPHERE IN) Inhale. cephalexin (KEFLEX) 500 mg, Daily cholecalciferol (VITAMIN D-3) 50 mcg Crestor 10 MG tablet Daily Cyanocobalamin (B-12) 1000 MCG tablet Take by mouth. Cymbalta [address] capsule Daily diclofenac (Voltaren) 75 MG EC tablet 2 times daily diclofenac-miSOPROStol (Arthrotec) 75-0.2 MG EC tablet Two times a day doxycycline (MONODOX) 100 mg, Daily furosemide (LASIX) 40 mg, Daily HYDROcodone-acetaminophen ([place]) 7.5-325 MG tablet 1 tablet, Every 6 [...] physician in this practice. Zuleika Hernandez MA [facility] [...] Upcoming Encounters Date Type Department Care Team ([facility] st Contact Info) Description 11/12/2025 11:15 AM EDT [facility] [address] [place] [address] [address] [place] [address] Deepa Lama MD [address] [place] [address] [address] [place] [address] documented as of this encounter Visit Diagnoses Diagnosis Follow-up arranged- Primary Severe aortic valve stenosis documented in this encounter Care Teams Machine Setup Operator Relationship Specialty Start Date End Date Gracia Cleaning Dr. PCP - General 09/18/24 documented as of this encounter
--- OUTSIDE RECORDS SUMMARY | 2024-11-29 09:36 | XMS_ITS | Encounter Summary ---
Author Organization [employer] ([place], [place], [place], [place]) Address [address] [place] [address] Care Team Providers Care Dance Critic Name Role Phone Unavailable Primary Care Provider Unavailabl e Encounter Details Date Type Department Care Team (Late st Contact Info) Description 08/26/2020 Transcribed Document [facility] [place] Family Medicine [address] [place] [address] ProviderMariela MD [address] [place] [address] Social History Tobacco Use Types [...]
--- OUTSIDE RECORDS SUMMARY | 2024-11-29 09:36 | XMS_ITS | Encounter Summary ---
Author Organization [employer] ([place], [place], [place], [place]) Address [address] [place] [address] Care Team Providers Care Last Waxer Name Role Phone Unavailable Primary Care Provider Unavailabl e Encounter Details Date Type Department Care Team (Late st Contact Info) Description 08/26/2020 Transcribed Document [facility] [place] Family Medicine [facility] [place] [address] ProviderMariela MD [facility] [place] [address] Social History Tobacco Use Types [...]
--- OUTSIDE RECORDS SUMMARY | 2024-11-29 09:36 | XMS_ITS | Encounter Summary ---
Author Organization [email or web address] ([place], [place], [place], [place]) Address [address] [place] [address] Care Team Providers Care Lead Shop Operator Name Role Phone Unavailable Primary Care Provider Unavailabl e Encounter Details Date Type Department Care Team (Late st Contact Info) Description 08/27/2020 Transcribed Document [facility] [place] Family Medicine [facility] [place] [address] ProviderMariela MD [facility] [place] [address] Social History Tobacco Use Types [...] her best interest is to go to halfway facility to continue her care and rehab. [...] PT/OT ???Released by PT/OT to go to halfway facility ???Tolerating well oral p.o. intake ???No [...] EDT Chloraseptic Menthol 1.4% topical spray: 5 [place], Oral, [place], Q2H, PRN for Sore Throat, Routine, Start [...] EDT fluticasone 50 mcg/inh nasal spray: 2 [place], Nostrils Both, [place], BID, PRN for Allergies, Routine, Start 08/20/20 [...] Refill(s) fluticasone 50 mcg/inh nasal spray: 2 [place], Nostrils Both, [place], BID, PRN Allergies, 0 Refill(s) furosemide 40 [...] Oral, Daily fluticasone 0.05% nasal spray 2 [place], Nostrils Both, BID magnesium hydroxide 8% liq [...] Oral, Q4H phenol 1.4% throat spray 5 [place], Oral, Q2H senna 8.6 mg tab 8.6 [...] % 23.7 % Lymph # 2.60 K/uL [place] % 11.7 % [place] # 1.28 K/uL HI Eos % 7.6 % HI Eos # 0.83 K/uL HI Baso % 0.2 % Baso # 0.02 K/uL Slide Review No IG# 0 x10(3)/uL IG% 0 % . Condition: Stable. Discharge Plan Discharge Summary Plan Discharge Status: stable. Orders Order Profile (Selected) Inpatient Orders Ordered Discharge Notification Pharmacy: Start: 08/27/20 12:23:32 EDT Discharge: Start: 08/27/20 12:23:00 EDT, Discharge to: Care Home unit/facility. Diagnosis Acute blood loss anemia - [...] & CLINICALLY STABLE AFEBRILE OK TO D/C halfway facility to continue her care and rehab. [...] Refill(s) fluticasone 50 mcg/inh nasal spray: 2 [place], Nostrils Both, [place], BID, PRN Allergies, 0 Refill(s) furosemide 40 [...]
--- OUTSIDE RECORDS SUMMARY | 2024-11-29 09:36 | XMS_ITS | Encounter Summary ---
Author Organization [employer] ([place], [place], [place], [place]) Address [address] [place] [address] Care Team Providers Care Director Of Women'S Services Name Role Phone Unavailable Primary Care Provider Unavailabl e Encounter Details Date Type Department Care Team (Late st Contact Info) Description 08/27/2020 Transcribed Document [facility] [place] Family Medicine [facility] [place] [address] ProviderMariela MD [address] [place] [address] Social History Tobacco Use Types [...] DONNA DRIVER MD-INT - 08/27/2020 12:23 EDT documented in this encounter Plan of Treatment Not on file documented as of this encounter Visit Diagnoses Not on filedocumented in this encounter
--- OUTSIDE RECORDS SUMMARY | 2024-11-29 09:36 | XMS_ITS | Encounter Summary ---
Author Organization [employer] ([place], [place], [place], [place]) Address [address] [place] [address] Care Team Providers Care Ship Yard Electrical Person Name Role Phone Unavailable Primary Care Provider Unavailabl e Encounter Details Date Type Department Care Team (Late st Contact Info) Description 08/26/2020 Transcribed Document [facility] [place] Family Medicine [facility] [place] [address] ProviderMariela MD [facility] [place] [address] Social History Tobacco Use Types [...] Plan Electronically signed by Nikunj Cornejo Conversion Waiter/Waitress Room Service Cerner at 06/16/2022 8:23 PM CDT documented in this encounter Plan of Treatment Not on file documented as of this encounter Visit Diagnoses Not on filedocumented in this encounter
--- OUTSIDE RECORDS SUMMARY | 2024-11-29 09:36 | XMS_ITS | Encounter Summary ---
Author Organization [employer] ([place], [place], [place], [place]) Address [address] [place] [address] Care Team Providers Care Land Lease Information Clerk Name Role Phone Unavailable Primary Care Provider Unavailabl e Encounter Details Date Type Department Care Team (Late st Contact Info) Description 08/26/2020 Transcribed Document [facility] [place] [facility] [address] ProviderMariela MD [address] [place] [address] Social History Tobacco Use Types [...]
--- OUTSIDE RECORDS SUMMARY | 2024-11-29 09:36 | XMS_ITS | Encounter Summary ---
Author Organization [employer] ([place], [place], [place], [place]) Address [address] [place] [address] Care Team Providers Care Automatic Gluing Machine Operator Name Role Phone Unavailable Primary Care Provider Unavailabl e Encounter Details Date Type Department Care Team (Late st Contact Info) Description 08/26/2020 Transcribed Document [facility] [place] [facility] [place] [address] ProviderMariela MD [facility] [place] [address] Social History Tobacco Use Types [...] the insurance refused to send [place] to [place] [facility] to continue her care and stated [...] EDT Chloraseptic Menthol 1.4% topical spray: 5 [place], Oral, [place], Q2H, PRN for Sore Throat, Routine, Start [...] EDT fluticasone 50 mcg/inh nasal spray: 2 [place], Nostrils Both, [place], BID, PRN for Allergies, Routine, Start 08/20/20 [...] Refill(s) fluticasone 50 mcg/inh nasal spray: 2 [place], Nostrils Both, [place], BID, PRN Allergies, 0 Refill(s) furosemide 40 [...] Oral, Daily fluticasone 0.05% nasal spray 2 [place], Nostrils Both, BID magnesium hydroxide 8% liq [...] Oral, Q4H phenol 1.4% throat spray 5 [place], Oral, Q2H senna 8.6 mg tab 8.6 [...] % 23.7 % Lymph # 2.60 K/uL [place] % 11.7 % [place] # 1.28 K/uL [place] Eos % 7.6 [...] fall risk and need to go to [place] [facility]. documented in this encounter Plan of Treatment Not on file documented as of this encounter Visit Diagnoses Not on filedocumented in this encounter
--- OUTSIDE RECORDS SUMMARY | 2024-11-29 09:36 | XMS_ITS | Encounter Summary ---
Author Organization [employer] ([place], [place], [place], [place]) Address [address] [place] [address] Care Team Providers Care Shingle Sawyer Name Role Phone Unavailable Primary Care Provider Unavailabl e Encounter Details Date Type Department Care Team (Late st Contact Info) Description 08/26/2020 Transcribed Document [facility] [place] Family Medicine [facility] [place] [address] ProviderMariela MD [address] [place] [address] Social History Tobacco Use Types [...] : Insurance 1 Health Plan: [facility] MEDICARE ADVANTAGE Policy Number: [id number] Authorization Number: [id number] Insurance Primary Name : [facility] MEDICARE ADVANTAGE Policy Number: [id number] Authorization Status-Primary : Admit approved Reference Number-Primary : [id number] Authorization Number-Primary : [id number] Number of Days Authorized-Primary : 0 Day(s) Authorized Service Begin Date-Primary : 08/20/2020 EDT Authorized Service End Date-Primary : 08/20/2020 EDT Authorization Comments-Primary : Uploaded cont stay clinicals (08/22-08/26/20) to [facility] Medicare via [employer]. Historical Authorization Comments-Primary : Comment 1: Uploaded cont stay clinicals (08/21/20) to [facility] Medicare via [employer]. (KARAN WATSON, RN-Utilization Review 08/21/2020 08:36) Comment 2: Note on [facility] website:Patient was initially scheduled for Right [...] AQUINO RN-Utilization Review 08/19/2020 15:20) Comment 3: [facility] Medicare approved per website for 1 day (TIESHA AQUINO RN-Utilization Review 08/19/2020 15:14) KARAN WATSON RN-Utilization Review - 08/26/2020 10:04 EDT Electronically signed by Maureen Cornejo Conversion Fruit Packer Face And Fill Titusner at 06/16/2022 8:07 PM CDT documented in this encounter Plan of Treatment Not on file documented as of this encounter Visit Diagnoses Not on filedocumented in this encounter
--- OUTSIDE RECORDS SUMMARY | 2024-11-29 09:36 | XMS_ITS | Encounter Summary ---
Author Organization [employer] ([place], [place], [place], [place]) Address [address] [place] [address] Care Team Providers Care Tree Surgeon Name Role Phone Unavailable Primary Care Provider Unavailabl e Encounter Details Date Type Department Care Team (Late st Contact Info) Description 08/27/2020 Transcribed Document [facility] [place] [address] [place] [address] ProviderMariela MD [address] [place] [address] Social History Tobacco Use Types [...] Vidhi Bailey RN - 08/27/2020 18:35 EDT documented in this encounter Plan of Treatment Not on file documented as of this encounter Visit Diagnoses Not on filedocumented in this encounter
--- OUTSIDE RECORDS SUMMARY | 2024-11-29 09:36 | XMS_ITS | Encounter Summary ---
Author Organization [employer] ([place], [place], [place], [place]) Address [address] [place] [address] Care Team Providers Care Claim Clerk Name Role Phone Unavailable Primary Care Provider Unavailabl e Encounter Details Date Type Department Care Team (Late st Contact Info) Description 08/27/2020 Transcribed Document [facility] Family Medicine [address] [place] [address] ProviderMariela MD [address] [place] [address] Social History Tobacco Use Types [...]
--- OUTSIDE RECORDS SUMMARY | 2024-11-29 09:36 | XMS_ITS | Encounter Summary ---
Author Organization [email or web address] ([place], [place], [place], [place]) Address [address] [place] [address] Care Team Providers Care Shared Services Manager Name Role Phone Unavailable Primary Care Provider Unavailabl e Encounter Details Date Type Department Care Team (Late st Contact Info) Description 08/27/2020 Transcribed Document [facility] [place] [facility] [place] [address] ProviderMariela MD [facility] [place] [address] Social History Tobacco Use Types [...] Referral(s): Service: Organization: Business Address: Phone Number: [facility] at [address], [place], [address] Discharge Options Discussed with Patient : Discharge transportation, DME, buttermaker continuous churn rehabilitation Barriers to Discharge Identified : No transportation available Barriers to Discharge Unresolved : No transportation available Designation of Choice Signed : Yes Patient Offered Choice/Affiliations Explained : Yes List/Info Provided Pt/Fam/Support Person : Durable medical equipment, long-term facilities Were Referrals Sent to Post Acute [...] denied patient for rehab. Isabelle from [facility] spoke to patient and she can go Self pay. Patient will be going to room 208 at the [facility]. Ramuisabell set up for 10 am on WednesdayAugust 28. Silva at [facility] notified of patient going to SNF per Esteban pharmacist. Scripts will be faxed over to Pharmacy at the [facility]. Case Management will continue to follow patient til discharge. CALL REPORT TO AND FAX DISCHARGE SUMMARY TO . Ramuisabell will pick patient up on 08/28/20 at 10am via stretcher. REF# [id number]. ADALBERTO BEE RN - 08/27/2020 14:46 EDT Historical Progress Note : Per MDR's patient not ready to be discharged yet. Pending preautorization at [facility]. Called and spoke with Richard and [...] wants to go to Rehab and choose [facility] or [place]. Referral faxed via Mike and isabelle notified. 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 DME: patient has a wc, showerchair and a walker at home. CM: case dontrell will continue to follow patient TRANS: will need an [facility] to transport patient there. ADALBERTO BEE RN - 08/21/20 14:06:04 ADALBERTO BEE RN - 08/27/2020 14:36 EDT documented in this encounter Plan of Treatment Not on file documented as of this encounter Visit Diagnoses Not on filedocumented in this encounter
--- OUTSIDE RECORDS SUMMARY | 2024-11-29 09:36 | XMS_ITS | Encounter Summary ---
Author Organization [employer] ([place], [place], [place], [place]) Address [address] [place] [address] Care Team Providers Care Rn Maternal Child Name Role Phone Unavailable Primary Care Provider Unavailabl e Encounter Details Date Type Department Care Team (Late st Contact Info) Description 08/27/2020 Transcribed Document [facility] [place] Family Medicine [address] [place] [address] ProviderMariela MD [address] [place] [address] Social History Tobacco Use Types [...] Jessica Ovalle Lpn - 08/27/2020 6:50 EDT Electronically signed by Maureen Cornejo Conversion Material Planning Analyst Cerbryce at 06/16/2022 8:10 PM CDT documented in this encounter Plan of Treatment Not on file documented as of this encounter Visit Diagnoses Not on filedocumented in this encounter
--- OUTSIDE RECORDS SUMMARY | 2024-11-29 09:36 | XMS_ITS | Encounter Summary ---
Author Organization [employer] ([place], [place], [place], [place]) Address [address] [place] [address] Care Team Providers Care Motor Inspection Mechanic Name Role Phone Unavailable Primary Care Provider Unavailabl e Encounter Details Date Type Department Care Team (Late st Contact Info) Description 08/26/2020 Transcribed Document [facility] [place] [facility] [place] [address] ProviderMariela MD [facility] [place] [address] Social History Tobacco Use Types [...] Historical ProviderMD - 08/26/2020 2:00 AM CDT Captain Assistant Details Entered On: 08/26/2020 1:33 EDT Performed [...]
--- OUTSIDE RECORDS SUMMARY | 2024-11-29 09:36 | XMS_ITS | Encounter Summary ---
Author Organization [employer] ([place], [place], [place], [place]) Address [address] [place] [address] Care Team Providers Care Coal Pulverizer Operator Name Role Phone Unavailable Primary Care Provider Unavailabl e Encounter Details Date Type Department Care Team (Late st Contact Info) Description 08/26/2020 Transcribed Document [facility] [place] Family Medicine [facility] [place] [address] ProviderMariela MD [facility] [place] [address] Social History Tobacco Use [...] On: 08/26/2020 11:49 EDT by Gabbie Calderon, Sales Representative Supervisor General Information, PT Visit Type, PT : [...] activity permitted and NWB RLE Gabbie Calderon, Sales Representative Supervisor - 08/26/2020 11:49 EDT General Status Patient Received Status : Long sitting in bed Treatment Start Time : 08/26/2020 11:12 EDT Patient Left Status : Long sitting in bed, RN/PCT informed, All needs met and within reach, Other: kirk stoddard RLE cast RN/PCT Informed Comment : RN okayed PT Treatment End Time : 08/26/2020 11:30 EDT Treatment Time : 18 Minute(s) Gabbie Calderon, Sales Representative Supervisor - 08/26/2020 11:49 EDT Edu Topics Physical Therapy Education Grid Bed Mobility Training : Verbalizes understanding, Returns demonstration, Needs reinforcement Positioning : Verbalizes understanding, Returns demonstration Role of Physical Therapy : Verbalizes understanding, Returns demonstration Gabbie Calderon, Sales Representative Supervisor - 08/26/2020 11:49 EDT Plan of Care, PT PT Tx Plan/Goals Established w Patient : Yes Gabbie Calderon, Sales Representative Supervisor - 08/26/2020 11:49 EDT Usp Goals Other PT LTG Grid [...] for bed MAX Ax2 08/26 Gabbie Calderon, Sales Representative Supervisor - 08/26/2020 11:49 EDT Gabbie Calderon, Sales Representative Supervisor - 08/26/2020 11:49 EDT Gabbie Calderon, Sales Representative Supervisor - 08/26/2020 11:49 EDT Treatment Note Subjective [...] x2, cued to reach for OT for HIDE INSPECTOR required much assistance to move UE, and [...] Treatment : Continue PT POC Gabbie Calderon, Sales Representative Supervisor - 08/26/2020 11:49 EDT Pain Assessment Pain Scaled Used : 0-10 Pain scale Pain Score Pre-Intervention : 0 Gabbie Calderon, Sales Representative Supervisor - 08/26/2020 11:49 EDT Image 1 - Images currently included in the form version of this document have not been included in the text rendition version of the form. [place] PT Charges COMMERCIAL GREEN BUILDING DESIGNER PT Ther Activities Ea 15 Min-COMMERCIAL GREEN BUILDING DESIGNER : 1 Gabbie Calderon, Sales Representative Supervisor - 08/26/2020 11:49 EDT documented in this encounter Plan of Treatment Not on file documented as of this encounter Visit Diagnoses Not on filedocumented in this encounter
--- OUTSIDE RECORDS SUMMARY | 2024-11-29 09:36 | XMS_ITS | Encounter Summary ---
Author Organization [employer] ([place], [place], [place], [place]) Address [address] [place] [address] Care Team Providers Care Renal Nurse Name Role Phone Unavailable Primary Care Provider Unavailabl e Encounter Details Date Type Department Care Team (Late st Contact Info) Description 08/26/2020 Transcribed Document [facility] [place] [facility] [place] [address] ProviderMariela MD [facility] [place] [address] Social History Tobacco Use Types [...]
--- OUTSIDE RECORDS SUMMARY | 2024-11-29 09:37 | XMS_ITS | Encounter Summary ---
Author Organization [employer] ([place], [place], [place], [place]) Address [address] [place] [address] Care Team Providers Care Neuropsychiatric Aide Name Role Phone Unavailable Primary Care Provider Unavailabl e Encounter Details Date Type Department Care Team (Late st Contact Info) Description 08/21/2020 Transcribed Document [facility] [place] [facility] [place] [address] ProviderMariela MD [address] [place] [address] Social History Tobacco Use Types Packs/Day [...] WM MORROW PTA - 08/25/2020 11:20 EDT Shelter Goals Other PT LTG Grid [...] ODALYS BOBO BURK - 08/25/2020 11:20 EDT [place] PT Charges ALTERATION INSPECTOR PT Ther Activities Ea 15 Min-ALTERATION INSPECTOR : 1 MORROW BOBO BURK - 08/25/2020 11:20 EDT documented in this encounter Plan of Treatment Not on file documented as of this encounter Visit Diagnoses Not on filedocumented in this encounter
--- OUTSIDE RECORDS SUMMARY | 2024-11-29 09:37 | XMS_ITS | Encounter Summary ---
Author Organization [employer] ([place], [place], [place], [place]) Address [address] [place] [address] Care Team Providers Care Tetryl Wringer Operator Name Role Phone Unavailable Primary Care Provider Unavailabl e Encounter Details Date Type Department Care Team (Late st Contact Info) Description 10/26/2020 Transcribed Document [facility] [place] [facility] [place] [address] ProviderMariela MD [address] [place] [address] Social History Tobacco Use Types [...] Mariela ProviderMD - 10/26/2020 1:52 PM CDT [place] [id number] SOFIA GILL :1940 Visit Time:10/26/2020 Your Visit [...] follow up appointment Follow-up as instructed Where: [address] [place], [place] [id number]- [facility] (1) Follow Up with Follow up with primary care provider When Within 2 to 3 days Comments Call for follow up appointment. Please follow-up with your primary care provider in 2 to 3 days. Return to ED if you experience new or worsening symptoms. If you do not have a primary care provider the patient resource scheduler maintenance can assist you with establishing care and scheduling follow-up. The Patient Resource Staff Home Therapy Rn can be contacted at . Allergies Mobic [...] range between ( 1.0 and 7.0 ) [place] #: 1.11 K/uL -- Normal range between ( 0.24 and 0.82 ) [place] #: 1.06 K/uL -- Normal range between ( 0.04 and 0.54 ) [place] %: 8.8 % -- Normal range between [...] provider. Document Revised: 02/24/2017 Document Reviewed: 02/01/2017 [employer] Patient Education ?? 2020 [employer]. Emergency Awareness and Preventative Care STROKE is [...] Assistance with quitting is available by contacting 1-047-CRIM-NOW. This is a free resource providing counseling, [...] was given the opportunity to ask questions. Patient/Retreader Name: Patient/Retreader Signature: Relationship to Patient: Clinician/Hospital Retreader Signature: Please Provide a Telephone Number Where You Can Be Reached: Is it Permissible To Leave a Message? Date: Electronically signed by Chantal, [facility] Conversion Anthony Copeland at 06/16/2022 8:25 PM CDT documented in this encounter Plan of Treatment Not on file documented as of this encounter Visit Diagnoses Not on filedocumented in this encounter
--- OUTSIDE RECORDS SUMMARY | 2024-11-29 09:37 | XMS_ITS | Encounter Summary ---
Author Organization [employer] ([place], [place], [place], [place]) Address [address] [place] [address] Care Team Providers Care Geomatics Professor Name Role Phone Unavailable Primary Care Provider Unavailabl e Encounter Details Date Type Department Care Team (Late st Contact Info) Description 07/15/2019 Transcribed Document [facility] [place] [facility] [place] [address] ProviderMariela MD [address] [place] [address] Social History Tobacco Use Types Packs/Day [...] form. Electronically signed by Maureen Cornejo Conversion Route Vending Machine Servicer Cerner at 06/16/2022 8:04 PM CDT documented in this encounter Plan of Treatment Not on file documented as of this encounter Visit Diagnoses Not on filedocumented in this encounter
--- OUTSIDE RECORDS SUMMARY | 2024-11-29 09:37 | XMS_ITS | Encounter Summary ---
Author Organization [employer] ([place], [place], [place], [place]) Address [address] [place] [address] Care Team Providers Care Store Management Trainee Name Role Phone Unavailable Primary Care Provider Unavailabl e Encounter Details Date Type Department Care Team (Late st Contact Info) Description 07/15/2019 Transcribed Document [facility] [place] [address] [place] [address] ProviderMariela MD [address] [place] [id number] Social History Tobacco Use Types Packs/Day Years [...] Marisela Rangel RN - 07/15/2019 16:33 EDT Electronically signed by Maureen Cornejo Conversion Mail Distribution Scheme Examiner Min at 06/16/2022 8:08 PM CDT documented in this encounter Plan of Treatment Not on file documented as of this encounter Visit Diagnoses Not on filedocumented in this encounter
--- OUTSIDE RECORDS SUMMARY | 2024-11-29 09:37 | XMS_ITS | Encounter Summary ---
Author Organization [employer] ([place], [place], [place], [place]) Address [address] [place] [address] Care Team Providers Care Torch Cutter Name Role Phone Unavailable Primary Care Provider Unavailabl e Encounter Details Date Type Department Care Team (Late st Contact Info) Description 08/21/2020 Transcribed Document [facility] [place] [facility] [place] [address] ProviderMariela MD [facility] [place] [address] Social History Tobacco Use [...] 08/21/2020 15:28 EDT Electronically signed by Chantal [facility] Conversion Endless Track Vehicle Mechanic Cerner at 06/16/2022 8:11 PM CDT documented in this encounter Plan of Treatment Not on file documented as of this encounter Visit Diagnoses Not on filedocumented in this encounter
--- OUTSIDE RECORDS SUMMARY | 2024-11-29 09:37 | XMS_ITS | Encounter Summary ---
Author Organization [employer] ([place], [place], [place], [place]) Address [address] [place] [address] Care Team Providers Care Industrial Automation Engineer Name Role Phone Unavailable Primary Care Provider Unavailabl e Encounter Details Date Type Department Care Team (Late st Contact Info) Description 07/14/2019 Transcribed Document [facility] [place] [facility] [place] [address] ProviderMariela MD [address] [place] [address] Social History Tobacco Use Types Packs/Day Years [...] They are trying to send me to [facility] on Wednesday will follow Notification : RN(Marisela)/PTx CORI NELSON PT - 07/14/2019 14:47 EDT Electronically signed by Chantal [facility] Conversion Plastic Sheets Finishing Supervisor Cerner at 06/16/2022 8:28 PM CDT documented in this encounter Plan of Treatment Not on file documented as of this encounter Visit Diagnoses Not on filedocumented in this encounter
--- OUTSIDE RECORDS SUMMARY | 2024-11-29 09:37 | XMS_ITS | Encounter Summary ---
Author Organization [facility] ([place], [place], [place]) Address [address] [place] [address] Care Team Providers Care Eyewear Manufacturing Supervisor Name Role Phone Unavailable Primary Care Provider Unavailabl e Encounter Details Date Type Department Care Team (Late st Contact Info) Description 07/15/2019 Transcribed Document [facility] [place] [facility] [place] [address] ProviderMariela MD [address] [place] [address] Social History Tobacco Use Types Packs/Day Years [...] EDT Performed On: 07/15/2019 21:03 EDT by OSMRA AREVALO RN Intervention Information: indomethacin Performed by [...]
--- OUTSIDE RECORDS SUMMARY | 2024-11-29 09:37 | XMS_ITS | Patient Health Record ---
Author Organization [facility] Address [address] [place] [address] [facility] [address] [place] [address] Care Team Providers Care Pbx Inspector Name Role Phone Sina Segura Primary Care Provider [phone] Flavia Gomez Unavailable [phone] Migration, Provider Unavailable Unavailable Allergies Allergen (clinical [...] ivan Results Component Value Reference Range Notes Echocardiogram Reviewed date:07/28/2024 12:20:48 PM Interpretation: Performing Lab: Notes/Report: Ultrasound : Breast, Left Reviewed date:11/09/2024 11:29:04 AM Interpretation: Performing Lab: Notes/Report: LIPID PANEL, STANDARD (7600) Reviewed date:07/10/2024 10:12:41 AM Interpretation: Performing Lab:CB, [facility] [id number] [facility] championPjpqPQ[address] Jacinto Vazquez Notes/Report: FASTING: YES FASTING:YES NON-FASTING; NON-FASTING; NON-FASTING CHOLESTEROL, TOTAL 185 <200 mg/dL HDL CHOLESTEROL 57 > OR = 50 mg/dL TRIGLYCERIDES 144 <150 mg/dL LDL-CHOLESTEROL 104 Reference range: <100 Desirable range <100 mg/dL for primary prevention; <70 mg/dL for patients with CHD or diabetic patients with > or = 2 CHD risk factors. LDL-C is now calculated using the Nelson calculation, which is a validated novel method providing better accuracy than the Friedewald equation in the estimation of LDL-C. Ricky SS et al. BOY. 2013;310(19): 2916-4311 (http://education.SHOP.COM/faq/DZT087) CHOL/HDLC RATIO 3.2 <5.0 (calc) NON HDL CHOLESTEROL 128 <130 mg/dL (calc) For patients with diabetes plus 1 major ASCVD risk factor, treating to a non-HDL-C goal of <100 mg/dL (LDL-C of <70 mg/dL) is considered a therapeutic option. TSH W/REFLEX TO FT4 (04783) Reviewed date:07/10/2024 10:12:41 AM Interpretation: Performing Lab:[facility], [id number] Jacinto Vazquez Notes/Report: NON-FASTING; NON-FASTING; NON-FASTING FASTING:YES FASTING: YES TSH W/REFLEX TO FT4 1.25 0.40-4.50 mIU/L VITAMIN D,25-OH,TOTAL,IA (17 306) Reviewed date:07/10/2024 10:12:41 AM Interpretation: Performing Lab:[facility], [place] Jacinto Vazquez Notes/Report: NON-FASTING; NON-FASTING; NON-FASTING FASTING:YES [...] D, (D2,D3), LC/MS/MS is recommended: order code 98755 (patients >2yrs). See Note 1 Note 1 For additional information, please refer to http://education.Digifeye.com/faq/IHG632 (This link is being provided for informational/ educational purposes only.) Medications Medication SIG (Take, Route, Frequency, Duration) Notes Start Date End Date Status Levocetirizine Dihydrochloride 5 MG 1 tab(s) orally once a day (in the evening); Duration: 90 days Active HYDROcodone-Acetaminoph en 7.5-325 MG 1 tab(s) orally every 6 hours Active Nystatin 106710 UNIT/GM 1 nilda applied topically 3 times a day; Duration: 14 days 08/25/2021 Active Mucinex 600 MG 1 tab(s) orally [...] once a day; Duration: 90 days Active Metoprolol Tartrate 25 MG 1/2 tab Orally Twice a day Active Cyanocobalamin-Methylco balamin 5000mcg-1 tablet once a day *Please review and pick correct strength-formulati on from Jetabroad options. If intended option is not shown, discontinue and re-order from Quick Search* Active Rosuvastatin Calcium 10 mg TAKE 1 TABLET DAILY AT BEDTIME Active Plavix 75 MG 1 tablet Orally Once a day Active Multivitamin - 1 tab(s) orally once a day; Duration: 30 day(s) Active Diclofenac Sodium 75 MG 1 tab(s) orally 2 times a day; Duration: 90 days Active COQ10 (OBSOLETE) 100 MG 1 CAP(S) ORALLY ONCE A DAY *Please review for potential replacement for e-prescription and drug interaction check* Active Fluticasone Propionate 50 MCG/ACT 2 sprays nasally once a day; Duration: 30 day(s) 10/21/2017 Active Calcium-Vitamin D 600 MG-800 INTL UNITS 1TAB ORALLY TWICE DAILY *Please review and pick correct strength-formulati on from Jetabroad options. If intended option is not shown, discontinue and re-order from Quick Search* Active Lisinopril 5 MG 1 tab(s) orally once a day; Duration: 90 days Active Aspirin Low Dose 81 MG 1 tab orally once a day Active Klor-Con M20 20 MEQ 1 tablet with food Orally Once a day; Duration: 90 days Active MiraLax - ORALLY ONCE A DAY *Please review and pick correct strength-formulati on from Moveran options. If intended option is not shown, discontinue and re-order from Quick Search* Active Levothyroxine Sodium 100 MCG TAKE 1 TABLET DAILY Active Furosemide 40 MG 1 tab(s) orally once a day; Duration: 90 days Active Albuterol Sulfate HFA 108 (90 Base) MCG/ACT 2 puff(s) inhaled every 6 hours as needed for wheezing; Duration: 30 days Active Immunizations Vaccine Route Administration Date [...] Problem Status W/U Status Risk Notes Problem Chronic postoperative pain (978334560322092) Other chronic postprocedural pain (G89.28) Active confirmed Problem Seasonal allergic rhinitis (906524085) Other seasonal allergic rhinitis (J30.2) Active confirmed Problem Allergic rhinitis (96793405) Other allergic rhinitis (J30.89) Active confirmed Problem Pain of left knee joint (finding) (720078976595195) Pain in left knee (M25.562) Active confirmed Problem Sciatica (88345915) Sciatica, unspecified side (M54.30) Active confirmed Problem Postmenopausal bleeding (47346864) Postmenopausal bleeding (N95.0) Active confirmed Problem Late effect of medical and surgical care complication (253986439) Infection and inflammatory reaction due to other internal joint prosthesis, sequela (T84.59XS) Active confirmed Problem Artificial knee joint present (537925913021) Presence of unspecified artificial knee joint (Z96.659) Active confirmed Problem Dependence on enabling machine or device (967584764) Dependence on other enabling machines and devices (Z99.89) Active confirmed Problem Hyperlipidaemia (60225285) HLD (hyperlipidemia) (E78.5) Active confirmed Problem Gastroesophageal reflux disease (512674242) GERD (gastroesophageal reflux disease) (K21.9) Active confirmed Problem Hypothyroidism (84518424) Hypothyroidism (E03.9) Active confirmed Problem Gout (60254637) Gout (M10.9) Active confirmed Problem Venous insufficiency of leg (disorder) (252318646) Venous insufficiency (I87.2) Active confirmed Problem Essential hypertension (14968178) HTN (hypertension), benign (I10) Active confirmed Problem Hypokalemia (43573772) Hypokalemia due to loss of potassium (E87.6) Active confirmed Problem Lymphedema (70226278) Lymphedema (I89.0) Active confirmed Problem Body mass index 40+ - morbidly obese (738508338) BMI 40.0-44.9, adult (Z68.41) Active confirmed Problem Arthropathy (939591254) Arthritis involving multiple sites (M12.9) Active confirmed Problem Atherosclerotic heart disease of [place] coronary artery without angina pectoris (655633077306043) Coronary artery disease involving [place] coronary artery of [place] heart without angina pectoris (I25.10) Active confirmed Problem Osteoarthritis of knee (989276701) Primary osteoarthritis of right knee (M17.11) Active confirmed Problem Recurrent falls (331803878) Recurrent falls (R29.6) Active confirmed Problem Neuropathic pain (124987382) Neuropathic pain (M79.2) Active confirmed Problem Hypoalbuminemia (900445548) Hypoalbuminemia (E88.09) Active confirmed Problem Morbid obesity (572771222) Severe obesity (BMI >= 40) (E66.01) Active confirmed Problem Internal derangement of left knee (72356238769921760) Internal derangement of left knee (M23.92) Active confirmed Problem Recurrent falls (189097474) Falls frequently (R29.6) Active confirmed Problem Aortic stenosis, non-rheumatic (156325826) Nonrheumatic aortic valve stenosis (I35.0) Active confirmed Problem Chronic venous insufficiency (56307916) Chronic venous insufficiency (I87.2) Active confirmed Problem Left anterior kn ee pain (M25.562) Active confirmed Problem Obstructive sleep apnea syndrome (14240897) SHERRY on CPAP (G47.33) Active confirmed Problem Malaise (253540663) Physical khushboo ility (R53.81) Active confirmed Problem Disorder of kidney and/or ureter (701336342) Right renal mass (N28.89) Active confirmed Problem Seasonal allergic rhinitis (038372710) Acute seasonal allergic rhinitis (J30.2) Active confirmed Problem Postmenopausal osteoporosis (858069291) 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) Active confirmed Problem 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 Problem Mild persistent asthma with exacerbation (J45.31) Active confirmed Problem Seasonal allergic rhinitis (064101176) Seasonal allergic rhinitis, unspecified trigger (J30.2) Active confirmed Problem Aortic valve disorder (1825827) Mild aortic stenosis (I35.0) Active confirmed Problem Solitary pulmonary nodule (545539351) Right lower lobe pulmonary nodule (R91.1) Active confirmed Problem Osteopenia following menopause (disorder) (089401504) 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) Active confirmed Problem Hypoproteinemia (0416896) Hypoproteinemia (E77.8) Active confirmed Problem Aortic valve disorder (0707301) Aortic stenosis, severe (I35.0) Active confirmed Problem Internal derangement of right knee (92431570966631229) Internal derangement of right knee (M23.91) Active confirmed Problem Late effect of medical and surgical care complication (205537364) Infected hardware in left lower extremity, sequela (T84.7XXS) Active confirmed Problem History of heart valve repair with prosthesis (174157601425316) S/P AVR (aortic valve replacement) (Z95.2) Active confirmed Vital Signs Heart Rate 80 /min 10/31/2024 Temperature 97.2 degrees Fahrenheit 10/31/2024 Blood pressure diastolic 72 mm Hg 10/31/2024 Height 59 in 10/31/2024 Blood pressure systolic 118 mm Hg 10/31/2024 Weight 221 lbs 10/31/2024 BMI 44.63 kg/m2 10/31/2024 Encounters Encounter Location Date Provider Diagnosis [facility] [address] [facility] [address] [place] [address] 06/03/2024 Provider Migration Wheezing R06.2 [facility] [address] [facility] [address] [place] [address] 02/17/2024 Flavia Gomez Wheezing R06.2 ; IFG (impaired fasting glucose) R73.01 and Obesity, morbid (more than 100 lbs over ideal weight or BMI > 40) E66.01 [facility] [address] [facility] [address] [place], [place] [address] 07/06/2024 Flavia Gomez Hypothyroidism E03.9 ; Medicare [...] BMI 40.0-44.9, adult Z68.41 and Hypokalemia E87.6 [facility] [address] [facility] [address] [place], [place] [address] 08/31/2024 Flavia Patricia Mild persistent asth ma with exacerbation J45.31 [facility] [address] [facility] [address] [place], [place] [address] 10/31/2024 Flavia Gomez S/P AVR (aortic valv e replacement) Z95.2 ; Hospital discharge follow-up Z09 ; Mass of lower inner quadrant of left breast N63.24 ; SHERRY on CPAP G47.33 and Severe obesity (BMI >= 40) E66.01 [facility] [address] [place] [address] 07/06/2024 Flavia Patricia [facility] [address] [place] [address] 07/06/2024 Flavia Patricia Mild aortic stenosis I35.0 [facility] [address] [place] [address] 07/25/2024 Flavia Patricia [facility] [address] [place] [address] 07/28/2024 Sina Besson [facility] [address] [place] [address] [address] [place] [address] 07/28/2024 Flavia Patricia [facility] [address] [facility] [place] [address] 08/21/2024 Sina Besson [facility] [address] [place] [address] 10/24/2024 Flavia Patricia [facility] [address] [place] [address] 10/31/2024 Flavia Gomez Assessments Encounter Date Diagnosis (ICD Code) Assessment Notes Treatment Notes Treatment Clinical Notes Section Notes 02/17/2024 Wheezing (ICD-10 - R06.2) trial of Combivent inhaler PRN, return precautions reviewed 02/17/2024 IFG (impaired fasting glucose) (ICD-10 - R73.01) Rec actual A1C with next set of labs but to this point has only had minor elevations 06/03/2024 Wheezing (ICD-10 - R06.2) 07/06/2024 Hypothyroidism (ICD-10 - E03.9) 07/06/2024 Medicare annual wellness visit, subsequent (ICD-10 - Z00.00) wellness recommendations for age reviewed 08/31/2024 Mild persistent asthma with exacerbation (ICD-10 - J45.31) we had Breztri samples available, provided with instructions to use 1 puff BID and monitor effect, rinse mouth after use. consider antibiotics if any progression of symptoms but would like to avoid oral steroids in light of upcoming surgical procedures 10/31/2024 Hospital discharge follow-up (ICD-10 - Z09) records requested 10/31/2024 S/P AVR (aortic valve replacement) (ICD-10 - Z95.2) heart sounds today are normal, tolerating plavix and has cardiology FU arranged 07/06/2024 Mild aortic stenosis (ICD-10 - I35.0) 10/31/2024 Mass of lower inner quadrant of left breast (ICD-10 - N63.24) recommend US for initial imaging...hopeful this is hematoma. last mammogram several years ago because of her significant physical debility 07/06/2024 HLD (hyperlipidemia) (ICD-10 - E78.5) 02/17/2024 Obesity, morbid (more than 100 lbs over ideal weight or BMI > 40) (ICD-10 - E66.01) complicates all aspects of care but insurance does not cover GLP1I for weight loss in this case...no h/o CAD or CVA. 07/06/2024 HTN (hypertension), benign (ICD-10 - I10) 10/31/2024 SHERRY on CPAP (ICD-10 - G47.33) still working to obtain coverage of Zepbound to assist with management of this and her morbid obesity 10/31/2024 Severe obesity (BMI >= 40) (ICD-10 - E66.01) 07/06/2024 Chronic venous insufficiency (ICD-10 - I87.2) [...] Profile 03/15/2006 Ultrasound : Kidneys, Bilateral 04/04/19 13 Urinalysis 08/14/2014 N-TSH (Thyroid Stimulating Hormone) 04/30 N-CMP 05/23/2007 N-CMP 03/15/2006 Physical Therapy 02/14/2018 Physical Therapy 01/28/2022 Physical Therapy 05/23/2007 Physical Therapy 05/28/2006 EKG 08/08/2018 Occupational Therapy : Eval & Treatment 02/14/2018 H-CBC with AUTO DIFF 07/17/2013 H-CBC with AUTO DIFF 06/07/2014 H-IRON & TIBC 11/16/2013 H-VITAMIN B12 11/16/2013 H-FOLATE, SERUM 11/16/2013 H-FERRITIN 11/16/2013 H-PT/INR 10/05/2016 H-CMP 09/09/2015 H-CMP 06/07/2014 H-BUN 07/05/2017 H-CREATININE SERUM 07/05/2017 H-LIPID PANEL 01/10/2008 H-LIPID PANEL 07/17/2013 H-LIPID PANEL 09/09/2015 H-LIPID PANEL 06/07/2014 H-TSH [...] Stimulating Hormone 07/07/2018 M-Vitamin D 25 Hydroxy 10/20/2022 M-Vitamin D 25 Hydroxy 07/07/2018 Future Test Test Name Order Date H-CMP 11/10/2010 H-LIPID PANEL 11/10/2010 Insurance Providers Payer Name Payer Address Payer Phone Subscriber Number Group Number Insured Name Patient Relationship to Insured Coverage Start Date Coverage End Date [employer] MEDICARE [address] [address] [place] [phone] [id number] Sy Barlow Self - patient is the insured Medical (General) History Medical History History ICD Code allergies osteoarthritis, followed by Arthritis Ce jean paul [facility] hypercholestrolemia sleep apnea on CPAP [...] valve replacement 10/12/2024 Hospitalization History Reason Date(Month/Year) [facility] for valve [facility] [place] 07/2020 [facility] for surgery- then transferred to [facility] until 09/2019 [facility] then to [facility] x 5 months 2018 revision of lt knee replacement-[facility] [place] 2015 broken leg 2014
--- OUTSIDE RECORDS SUMMARY | 2024-11-29 09:37 | XMS_ITS | Encounter Summary ---
Author Organization [employer] ([place], [place], [place], [place]) Address [address] [place] [address] Care Team Providers Care Manager General Name Role Phone Unavailable Primary Care Provider Unavailabl e Encounter Details Date Type Department Care Team (Late st Contact Info) Description 07/16/2019 Transcribed Document [facility] [place] [facility] [place] [address] ProviderMariela MD [address] [place] [address] Social History Tobacco Use Types Packs/Day Years [...] OSMAR AREVALO RN - 07/16/2019 23:43 EDT Electronically signed by Maureen Cornejo Conversion Osteopathic Medicine Teacher Cerner at 06/16/2022 8:13 PM CDT documented in this encounter Plan of Treatment Not on file documented as of this encounter Visit Diagnoses Not on filedocumented in this encounter
--- OUTSIDE RECORDS SUMMARY | 2024-11-29 09:37 | XMS_ITS | Encounter Summary ---
Author Organization [employer] ([place], [place], [place], [place]) Address [address] [place] [address] Care Team Providers Care Medical Interpreter Name Role Phone Unavailable Primary Care Provider Unavailabl e Encounter Details Date Type Department Care Team (Late st Contact Info) Description 10/26/2020 Transcribed Document [facility] [place] [facility] [address] ProviderMariela MD [address] [place] [address] Social History Tobacco Use [...] Mariela ProviderMD - 10/26/2020 1:54 PM CDT [place] [id number] SOFIA GILL :1940 Visit Time:10/26/2020 Your Visit [...] follow up appointment Follow-up as instructed Where: [address] [place], [place] [id number]- [facility] (1) Follow Up with Follow [...] care and scheduling follow-up. The Patient Resource Ground Equipment Mechanic can be contacted at . Allergies Mobic [...] range between ( 1.0 and 7.0 ) Bowman #: 1.11 K/uL -- Normal range between ( 0.24 and 0.82 ) Eos #: 1.06 K/uL -- Normal range between ( 0.04 and 0.54 ) Bowman %: 8.8 % -- Normal range between [...] provider. Document Revised: 02/24/2017 Document Reviewed: 02/01/2017 [employer] Patient Education ?? 2020 [employer]. Emergency Awareness and Preventative Care STROKE is [...] Assistance with quitting is available by contacting 4-272-XAEQ-NOW. This is a free resource providing counseling, [...] was given the opportunity to ask questions. Patient/Commercial Decorator Name: Patient/Commercial Decorator Signature: Relationship to Patient: Clinician/Hospital Commercial Decorator Signature: Please Provide a Telephone Number Where You Can Be Reached: Is it Permissible To Leave a Message? Date: Electronically signed by Chantal, [facility] Conversion Anthony Copeland at 06/16/2022 8:30 PM CDT documented in this encounter Plan of Treatment Not on file documented as of this encounter Visit Diagnoses Not on filedocumented in this encounter
--- OUTSIDE RECORDS SUMMARY | 2024-11-29 09:37 | XMS_ITS | Encounter Summary ---
Author Organization [employer] ([place], [place], [place], [place]) Address [address] [place] [address] Care Team Providers Care Grocery Team Member Name Role Phone Unavailable Primary Care Provider Unavailabl e Encounter Details Date Type Department Care Team (Late st Contact Info) Description 08/21/2020 Transcribed Document [facility] [place] [facility] [place] [address] ProviderMariela [place] [address] Social History Tobacco Use Types [...] permitted right quad activity and uses leg riffler tender to assist with movement of RLE in [...] CHAITANYA SIMON, PT - 08/21/2020 10:48 EDT Teradata Architect Goals Other PT LTG Grid Goal #1 [...] Needs, OT/PT Anticipated Discharge to : Unit, senior living CHAITANYA SIMON, PT - 08/21/2020 10:48 EDT [place] PT Charges PT Ther Activities Ea 15 Min : 2 PT [place] Moderate Complexity : 1 CHAITANYA SIMON, PT - 08/21/2020 10:48 EDT Electronically signed by Chantal [facility] Conversion Warehouse General Laborer Cerner at 06/16/2022 8:05 PM CDT documented in this encounter Plan of Treatment Not on file documented as of this encounter Visit Diagnoses Not on filedocumented in this encounter
--- OUTSIDE RECORDS SUMMARY | 2024-11-29 09:37 | XMS_ITS | Encounter Summary ---
Author Organization [employer] ([place], [place], [place], [place]) Address [address] [place] [address] Care Team Providers Care Sprinkler Helper Name Role Phone Unavailable Primary Care Provider Unavailabl e Encounter Details Date Type Department Care Team (Late st Contact Info) Description 10/26/2020 Transcribed Document [facility] [place] [address] [place] [address] ProviderMariela MD [address] [place], [place] [id number] Social History Tobacco Use Types Packs/Day Years [...] : Low risk (0) Broset Interventions : Belsano precautions for safety used Pegyg Rayo RN - 10/26/2020 3:19 EDT documented in this encounter Plan of Treatment Not on file documented as of this encounter Visit Diagnoses Not on filedocumented in this encounter
--- OUTSIDE RECORDS SUMMARY | 2024-11-29 09:37 | XMS_ITS | Encounter Summary ---
Author Organization [employer] ([place], [place], [place], [place]) Address [address] [place] [address] Care Team Providers Care Linux Programmer Name Role Phone Unavailable Primary Care Provider Unavailabl e Encounter Details Date Type Department Care Team (Late st Contact Info) Description 10/26/2020 Transcribed Document [facility] [place] [facility] [place] [address] ProviderMariela MD [address] [place] [address] Social History Tobacco Use Types Packs/Day [...] - 10/26/2020 1:45 AM CDT Patient: SOFIA GLIL Age: 80 years Sex: Female : 1940 Associated Diagnoses: Healed wound Author: MAN HACKETT MD Basic Information Time seen: Date & time 10/26/2020 01:45:00, Voice recognition / associate entertainment editor technology used for some documentation in this [...] EDT Height Source Stated Height Entry Format [place] Height/Length, TAJIK (ft) 5 ft Height/Length TAJIK 0 Inch CLINICALHEIGHT 152.4 cm [place] Body Weight 49.16 kg Weight Source, ED Critical estimated dosing weight Weight Entry Format [place] Weight Korean lb 200 lb CLINICALWEIGHT 90.91 kg Body [...] Triage: ED C-SSRS: ED Clinical Reconciliation: ED crown attacher: ESR Sedimentation Rate Auto: Immobilizer Brace Splint [...] % 24.6 % Lymph # 3.10 K/uL [place] % 8.8 % [place] # 1.11 K/uL HI Eos % 8.4 [...]
--- OUTSIDE RECORDS SUMMARY | 2024-11-29 09:37 | XMS_ITS | Encounter Summary ---
Author Organization [employer] ([place], [place], [place], [place]) Address [address] [place] [address] Care Team Providers Care Manager Beverage Name Role Phone Unavailable Primary Care Provider Unavailabl e Encounter Details Date Type Department Care Team (Late st Contact Info) Description 07/15/2019 Transcribed Document [facility] [place] [address] [place] [address] ProviderMariela MD [address] [place], [place] [id number] Social History Tobacco Use Types Packs/Day Years [...]
--- OUTSIDE RECORDS SUMMARY | 2024-11-29 09:37 | XMS_ITS | Encounter Summary ---
Author Organization [employer] ([place], [place], [place], [place]) Address [address] [place] [address] Care Team Providers Care Meeting Coordinator Name Role Phone Unavailable Primary Care Provider Unavailabl e Encounter Details Date Type Department Care Team (Late st Contact Info) Description 08/21/2020 Transcribed Document [facility] [place] [address] [place] [address] ProviderMariela MD [address] [place] [address] Social History Tobacco Use Types [...]
--- OUTSIDE RECORDS SUMMARY | 2024-11-29 09:37 | XMS_ITS | Encounter Summary ---
Author Organization [employer] ([place], [place], [place], [place]) Address [address] [place] [address] Care Team Providers Care Station Engineer Name Role Phone Unavailable Primary Care Provider Unavailabl e Encounter Details Date Type Department Care Team (Late st Contact Info) Description 07/16/2019 Transcribed Document [facility] [place] [facility] [place] [address] ProviderMariela MD [address] [place] [address] Social History Tobacco Use Types Packs/Day [...]
--- OUTSIDE RECORDS SUMMARY | 2024-11-29 09:37 | XMS_ITS | Encounter Summary ---
Author Organization [employer] ([place], [place], [place], [place]) Address [address] [place] [address] Care Team Providers Care Structural Architect Name Role Phone Unavailable Primary Care Provider Unavailabl e Encounter Details Date Type Department Care Team (Late st Contact Info) Description 07/17/2019 Transcribed Document [facility] [place] [place] [address] ProviderMariela MD [address] [place] [address] Social History Tobacco Use Types [...] Appt scheduled for tomorrow, 07/18/2019 @ 1415; [facility] round-trip transport scheduled for 1315 pick-up ([id number]). Spoke with Lexy Valdez, they have not yet began the patient's insurance preauth, they will today, and be ready to admit on Wednesday. Dr. Jaffe notified and in agreement. [facility] rescheduled for discharge 07/19/2019 @ 1400 ([id number]). Care Management Note Report : YOANNA ARAUJO RN - 07/14/19 15:41:31 Yoanna Araujo 07/13/2019 1500 - patient has accepted bed offer at [facility], she will be transported on WednesdayJuly 16 at 2pm by [facility] Confirmation # [id number]. She declined the bed offer at [facility]. Dr. Jaffe notified of discharge plan. YOANNA ARAUJO RN - 07/13/19 14:37:44 Yoanna Araujo 07/13/2019 1400 received call from Ratna with [facility] offering patient a bed, Received call from Isabelle with [facility] she is looking at patient and needed a current height and weight. Still waiting to see if any other bed offers come through. I also sent referral to [facility]. YOANNA ARAUJO RN - 07/13/19 11:04:03 Yoanna Araujo 07/13/2019 1100 faxed out referral for placement for patient to [facility] nursing and rehab, [facility] Awaiting call backs. СВЕТЛАНА WANG - 07/12/19 12:19:17 07/12/2019 Fax received from [facility] with approval for LTAC services with a request for updated discharge plans and clinical info to support needs if not discharged. Auth#[id number]. Clinical review or discharge summary to be faxed by 07/17/2019. YOANNA ARAUJO RN - 07/12/19 08:39:48 Yoanna Araujo 07/12/2019 0830 - faxed clinical review the [facility] at [phone] to request approval for extended ltac services. Auth#[id number], awaiting approval. YOANNA ARAUJO RN - 06/29/19 [...] health and she has been to the [facility] and [facility] in the past. She has the following equipment at home: wheel chair, walker, cane and shower chair. Her discharge plan is to go to rehab prior to returning home. PCP: Flavia MARQUEZ [address] [id number] Hematologist: Dr. Shemar Bargre [facility] [address] [facility] [id number]. Clemente Del Rio MD - Rheumatology - [address] [place], [place] [phone] Preferences: Home Health: License [facility]: no preferences DME: [facility] - [address], [place] [address] Jail: [facility] facility: no preferences Will continue to monitor patient for anticipated discharge needs YOANNA ARAUJO RN - 06/29/19 08:30:20 Yoanna Araujo 06/29/2019 0830 received fax from [facility] with approval for extended ltac coverage with next clinical review due on 07/12/2019. Auth#[id number]. Will continue to follow for anticipated discharge needs. YOANNA ARAUJO RN - 06/28/19 08:35:06 Yoanna Araujo 06/28/2019 0830 Faxed clinical review to [facility] at to request approval for extended Ltac services. Auth#[id number]. Pending Approval. Documentation Status Complete : Yes СВЕТЛАНА WANG - 07/17/2019 9:01 EDT documented in this encounter Plan of Treatment Not on file documented as of this encounter Visit Diagnoses Not on filedocumented in this encounter
--- OUTSIDE RECORDS SUMMARY | 2024-11-29 09:37 | XMS_ITS | Encounter Summary ---
Author Organization [employer] ([place], [place], [place], [place]) Address [address] [place] [address] Care Team Providers Care Any Commodity Sales Deliverer Name Role Phone Unavailable Primary Care Provider Unavailabl e Encounter Details Date Type Department Care Team (Late st Contact Info) Description 08/21/2020 Transcribed Document [facility] [place] [address] ProviderMariela MD [place] [address] Social History Tobacco Use Types [...] goals: keep cast c/d/i, NWB, USE LEG SURVEILLANCE MANAGER F/U in clinic 2-3 weeks Discharge Instructions: [...] Daily fluticasone 50 mcg/inh nasal spray 2 [place], PRN, Nostrils Both, BID furosemide 40 mg [...]
--- OUTSIDE RECORDS SUMMARY | 2024-11-29 09:37 | XMS_ITS | Encounter Summary ---
Author Organization [facility] ([place], [place], [place], [place]) Address [address] [place] [address] Care Team Providers Care Senior Net Engineer Name Role Phone Unavailable Primary Care Provider Unavailabl e Encounter Details Date Type Department Care Team (Late st Contact Info) Description 07/16/2019 Transcribed Document [facility] [address] [place] [address] ProviderMariela MD [address] [place], [place] [id number] Social History Tobacco Use Types Packs/Day Years [...]
--- OUTSIDE RECORDS SUMMARY | 2024-11-29 09:37 | XMS_ITS | Encounter Summary ---
Author Organization [employer] ([place], [place], [place], [place]) Address [address] [place] [address] Care Team Providers Care Service Provider Name Role Phone Unavailable Primary Care Provider Unavailabl e Encounter Details Date Type Department Care Team (Late st Contact Info) Description 08/21/2020 Transcribed Document [facility] [place] [facility] [place] [address] ProviderMariela MD [address] [place] [address] Social History Tobacco Use Types [...] Conversion Note - Mariela ProviderMD - 08/21/2020 1:57 PM CDT Initial [...] lowe Emergency Contact #2 Phone Number : [phone] Emergency Contact #2 Relationship : son Enter [...] 08/22/2020 EDT Anticipated Discharge To, CM : shelter facility Current Home Treatment/Equipment : Current Home [...] Discussed with Patient : Discharge transportation, DME, intermediate card tender rehabilitation ADALBERTO BEE RN - 08/21/2020 13:57 [...] wants to go to Rehab and choose [place] [facility] or [place]. Referral faxed via Mike and brooke notified. 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 DME: patient has a wc, showerchair and a walker at home. CM: jevon jon will continue to follow patient TRANS: will need an [facility] to transport patient there. ADALBERTO BEE RN - 08/21/2020 14:03 EDT documented in this encounter Plan of Treatment Not on file documented as of this encounter Visit Diagnoses Not on filedocumented in this encounter
--- OUTSIDE RECORDS SUMMARY | 2024-11-29 09:37 | XMS_ITS | Encounter Summary ---
Author Organization [facility] ([place], [place], [place], [place]) Address [address] [place] [address] Care Team Providers Care Forklift Truck Operator Name Role Phone Unavailable Primary Care Provider Unavailabl e Encounter Details Date Type Department Care Team (Late st Contact Info) Description 08/21/2020 Transcribed Document [facility] [place] [facility] [place] [address] ProviderMariela MD [facility] [place] [address] Social History Tobacco Use [...] Referral(s): Service: Organization: Business Address: Phone Number: Mixer Crane Operator Care [facility] [place] at [address], [address] Discharge Options Discussed with Patient : Discharge transportation, DME, terminal computer operator rehabilitation Barriers to Discharge Identified : Clinical Condition of Patient Barriers to Discharge Unresolved : Clinical Condition of Patient Designation of Choice Signed : No Patient Offered Choice/Affiliations Explained : Yes List/Info Provided Pt/Fam/Support Person : Durable medical equipment, [facility] facilities Were Referrals Sent to Post Acute [...] wants to go to Rehab and choose [place] [facility] or [place]. Referral faxed via Feni[employer] and brooke notified. 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 DME: patient has a wc, showerchair and a walker at home. CM: jevon jon will continue to follow patient TRANS: will need an [facility] to transport patient there. ADALBERTO BEE RN - 08/21/2020 14:05 EDT documented in this encounter Plan of Treatment Not on file documented as of this encounter Visit Diagnoses Not on filedocumented in this encounter
--- OUTSIDE RECORDS SUMMARY | 2024-11-29 09:37 | XMS_ITS | Encounter Summary ---
Author Organization [employer] ([place], [place], [place], [place]) Address [address] [place] [address] Care Team Providers Care Home Health Caregiver Name Role Phone Unavailable Primary Care Provider Unavailabl e Encounter Details Date Type Department Care Team (Late st Contact Info) Description 08/21/2020 Transcribed Document [facility] [place] [facility] [address] ProviderMariela [place] [address] Social History Tobacco Use Types [...] PRN Chloraseptic Menthol 1.4% topical spray, 5 [place], Oral, Q2H, PRN Colace, 100 mg= 1 [...] PRN fluticasone 50 mcg/inh nasal spray, 2 [place], Nostrils Both, BID, PRN furosemide, 40 mg= [...] (High) 08/20/2020 16:17 EDT Auto RBC BF [id number] /[id number] (High) 08/20/2020 16:17 EDT Neutrophils Body Fluid 62 % (High) 08/20/2020 16:17 EDT Lymphocytes Body Fluid 27 % (Low) 08/20/2020 16:17 EDT Monocytes Body Fluid 9 % 08/20/2020 16:17 EDT Eosinophils Body Fluid 2 % 08/20/2020 16:17 EDT ABO/Rh A POS 08/20/2020 13:06 EDT Antibody Screen (Tube) Negative ABSC 08/20/2020 13:06 EDT Electronically signed by Chantal [facility] Conversion Cnc Router Operator Cerner at 06/16/2022 8:06 PM CDT documented in this encounter Plan of Treatment Not on file documented as of this encounter Visit Diagnoses Not on filedocumented in this encounter
--- OUTSIDE RECORDS SUMMARY | 2024-11-29 09:37 | XMS_ITS | Encounter Summary ---
Author Organization [employer] ([place], [place], [place], [place]) Address [address] [place] [address] Care Team Providers Care Marketing Communication Manager Name Role Phone Unavailable Primary Care Provider Unavailabl e Encounter Details Date Type Department Care Team (Late st Contact Info) Description 07/15/2019 Transcribed Document [facility] [place] [facility] [place] [address] ProviderMariela MD [address] [place] [address] Social History Tobacco Use Types Packs/Day Years [...] Historical ProviderMD - 07/15/2019 2:00 AM CDT Hemodialysis Technician Details Entered On: 07/15/2019 2:33 EDT Performed [...]
--- OUTSIDE RECORDS SUMMARY | 2024-11-29 09:37 | XMS_ITS | Encounter Summary ---
Author Organization [employer] ([place], [place], [place], [place]) Address [address] [place] [address] Care Team Providers Care Community Coordinator For High School Name Role Phone Unavailable Primary Care Provider Unavailabl e Encounter Details Date Type Department Care Team (Late st Contact Info) Description 10/26/2020 Transcribed Document [facility] [place] [facility] [place] [address] ProviderMariela MD [address] [place] [address] Social History Tobacco Use Types [...] Mariela ProviderMD - 10/26/2020 1:53 PM CDT [place] [phone] SOFIA GILL :1940 Visit Time:10/26/2020 Your Visit [...] follow up appointment Follow-up as instructed Where: [address] [place], [place] [id number]- [facility] (1) Follow Up with Follow up with primary care provider When Within 2 to 3 days Comments Call for follow up appointment. Please follow-up with your primary care provider in 2 to 3 days. Return to ED if you experience new or worsening symptoms. If you do not have a primary care provider the patient resource materials scheduler can assist you with establishing care and scheduling follow-up. The Patient Resource Fashion Consultant can be contacted at . Allergies Mobic [...] range between ( 1.0 and 7.0 ) [place] #: 1.11 K/uL -- Normal range between ( 0.24 and 0.82 ) Eos #: 1.06 K/uL -- Normal range between ( 0.04 and 0.54 ) [place] %: 8.8 % -- Normal range between [...] provider. Document Revised: 02/24/2017 Document Reviewed: 02/01/2017 [employer] Patient Education ?? 2020 [employer]. Emergency Awareness and Preventative Care STROKE is [...] Assistance with quitting is available by contacting 0-730-RPYJ-NOW. This is a free resource providing counseling, [...] was given the opportunity to ask questions. Patient/Lathe Set Up Operator Name: Patient/Lathe Set Up Operator Signature: Relationship to Patient: Clinician/Hospital Lathe Set Up Operator Signature: Please Provide a Telephone Number Where You Can Be Reached: Is it Permissible To Leave a Message? Date: Electronically signed by Chantal, [facility] Conversion Anthony Copeland at 06/16/2022 8:14 PM CDT documented in this encounter Plan of Treatment Not on file documented as of this encounter Visit Diagnoses Not on filedocumented in this encounter
--- OUTSIDE RECORDS SUMMARY | 2024-11-29 09:37 | XMS_ITS | Encounter Summary ---
Author Organization [employer] ([place], [place], [place], [place]) Address [address] [place] [address] Care Team Providers Care Stream Control Officer Name Role Phone Unavailable Primary Care Provider Unavailabl e Encounter Details Date Type Department Care Team (Late st Contact Info) Description 07/14/2019 Transcribed Document [facility] Radiology [address] [place] [address] Shawanda Barahona MD [address] [place] [phone] Social History Tobacco Use Types Packs/Day Years [...] (JULY 06) L 2.9 (JULY 05) Micro: [facility]: 06/15 [facility] Blood cultures [...] effects; diarrhea, elevated LFT's, fungal superinfection etc patient case manager needs to explain why patient cannot stay in LTAC longer and help find SNF that taz feels good about going to documented in this encounter Plan of Treatment Not on file documented as of this encounter Visit Diagnoses Not on filedocumented in this encounter
--- OUTSIDE RECORDS SUMMARY | 2024-11-29 09:37 | XMS_ITS | Encounter Summary ---
Author Organization [employer] ([place], [place], [place], [place]) Address [address] [place] [address] Care Team Providers Care Polysilicon Preparation Worker Name Role Phone Unavailable Primary Care Provider Unavailabl e Encounter Details Date Type Department Care Team (Late st Contact Info) Description 10/26/2020 Transcribed Document [facility] [place] Pending sale [place] [address] ProviderMariela MD [address] [place] [address] Social History Tobacco Use Types Packs/Day [...] form. Electronically signed by Maureen Cornejo Conversion Airport Operations Specialist Cerner at 06/16/2022 8:28 PM CDT documented in this encounter Plan of Treatment Not on file documented as of this encounter Visit Diagnoses Not on filedocumented in this encounter
--- OUTSIDE RECORDS SUMMARY | 2024-11-29 09:37 | XMS_ITS | Encounter Summary ---
Author Organization [employer] ([place], [place], [place], [place]) Address [address] [place] [address] Care Team Providers Care Divisional Human Resources Director Name Role Phone Unavailable Primary Care Provider Unavailabl e Encounter Details Date Type Department Care Team (Late st Contact Info) Description 07/15/2019 Transcribed Document [facility] [place] [facility] [place] [address] ProviderMariela MD [address] [place] [id number] Social History Tobacco Use Types Packs/Day Years [...] 0.9% 100 mL 2 Gram, IV Piggyback, [id number] cyanocobalamin 1,000 mcg tab 5,000 mcg 5 [...] Oral, Q4H fluticasone 0.05% nasal spray 2 [place], Nostrils Both, BID magnesium hydroxide 8% liq [...]
--- OUTSIDE RECORDS SUMMARY | 2024-11-29 09:37 | XMS_ITS | Encounter Summary ---
Author Organization [employer] ([place], [place], [place], [place]) Address [address] [place] [address] Care Team Providers Care Wheel Fitter Name Role Phone Unavailable Primary Care Provider Unavailabl e Encounter Details Date Type Department Care Team (Late st Contact Info) Description 07/16/2019 Transcribed Document [facility] Family Medicine [facility] [place] [address] ProviderMariela MD [address] [place] [phone] Social History Tobacco Use Types Packs/Day Years [...] 0.9% 100 mL 2 Gram, IV Piggyback, A20MHgo cyanocobalamin 1,000 mcg tab 5,000 mcg 5 [...] Oral, Q4H fluticasone 0.05% nasal spray 2 [place], Nostrils Both, BID magnesium hydroxide 8% liq [...] care. Shannon removal if okay with .to longterm facility in a.m. if stable. Orders Order [...]
--- OUTSIDE RECORDS SUMMARY | 2024-11-29 09:37 | XMS_ITS | Encounter Summary ---
Author Organization [employer] ([place], [place], [place], [place]) Address [address] [place] [address] Care Team Providers Care Sales Technician Home Theater Name Role Phone Unavailable Primary Care Provider Unavailabl e Encounter Details Date Type Department Care Team (Late st Contact Info) Description 10/26/2020 Transcribed Document [facility] Family Medicine [facility] [place] [address] ProviderMariela [place] [address] Social History Tobacco Use Types [...] On: 10/26/2020 2:30 EDT by Peggy Rayo BIOINFORMATICS ASSOCIATE Quick Look Assessment Level of Consciousness : Alert, Awake Affect/Behavior : Appropriate, Calm, Cooperative Orientation : Oriented x 4 Skin Temperature : Warm Skin Description : Normal for ethnicity Peggy Rayo RN - 10/26/2020 3:19 EDT ED General-Functional Assess Information Obtained From : Patient Communication Barrier : None Primary Language : Kazakh Any Spiritual/Cultural Needs or Requests : No [...]
--- OUTSIDE RECORDS SUMMARY | 2024-11-29 09:38 | XMS_ITS | Encounter Summary ---
Author Organization [employer] ([place], [place], [place], [place]) Address [address] [place] [address] Care Team Providers Care Ore Miner Name Role Phone Unavailable Primary Care Provider Unavailabl e Encounter Details Date Type Department Care Team (Late st Contact Info) Description 07/17/2019 Transcribed Document [facility] Radiology [address] [place] [address] Shawanda Barahona MD [address] [id number] Social History Tobacco Use Types Packs/Day Years [...] (JULY 09) L 3.1 (JULY 06) Micro: [facility]: 06/15 [facility] Blood cultures positive for group B [...] LFT's, fungal superinfection etc to go to [facility] if [facility]opedics agrees d/w counseling case manager documented in this encounter Plan of Treatment Not on file documented as of this encounter Visit Diagnoses Not on filedocumented in this encounter
--- OUTSIDE RECORDS SUMMARY | 2024-11-29 09:38 | XMS_ITS | Encounter Summary ---
Author Organization [employer] ([place], [place], [place], [place]) Address [address] [place] [address] Care Team Providers Care Pharmacologist Name Role Phone Unavailable Primary Care Provider Unavailabl e Encounter Details Date Type Department Care Team (Late st Contact Info) Description 10/26/2020 Transcribed Document [facility] [place] [facility] [place] [address] ProviderMariela MD [address] [place] [address] Social History Tobacco Use Types Packs/Day [...] - 10/26/2020 14:19 EDT Electronically signed by [facility] Conversion Acupressurist Cerner at 06/16/2022 8:04 PM CDT documented in this encounter Plan of Treatment Not on file documented as of this encounter Visit Diagnoses Not on filedocumented in this encounter
--- OUTSIDE RECORDS SUMMARY | 2024-11-29 09:38 | XMS_ITS | Encounter Summary ---
Author Organization [employer] ([place], [place], [place], [place]) Address [address] [place] [address] Care Team Providers Care Physician Obstetrician Name Role Phone Unavailable Primary Care Provider Unavailabl e Encounter Details Date Type Department Care Team (Late st Contact Info) Description 08/21/2020 Transcribed Document [facility] Family Medicine [facility] [place] [address] ProviderMariela MD [address] [place] [address] Social History Tobacco Use [...] Historical ProviderMD - 08/21/2020 2:00 AM CDT Strapping Machine Operator Details Entered On: 08/21/2020 4:12 EDT Performed [...] 4:12 EDT Electronically signed by Chantal [facility] Conversion Market Asset Protection Manager Cerner at 06/16/2022 8:17 PM CDT documented in this encounter Plan of Treatment Not on file documented as of this encounter Visit Diagnoses Not on filedocumented in this encounter
--- OUTSIDE RECORDS SUMMARY | 2024-11-29 09:38 | XMS_ITS | Encounter Summary ---
Author Organization [employer] ([place], [place], [place], [place]) Address [address] [place] [address] Care Team Providers Care Graphite Grinder Name Role Phone Unavailable Primary Care Provider Unavailabl e Encounter Details Date Type Department Care Team (Late st Contact Info) Description 08/21/2020 Transcribed Document [facility] Family Medicine [facility] [address] ProviderMariela MD [address] [place] [address] Social History Tobacco Use Types [...]
--- OUTSIDE RECORDS SUMMARY | 2024-11-29 09:38 | XMS_ITS | Encounter Summary ---
Author Organization [employer] ([place], [place], [place], [place]) Address [address] [place] [address] Care Team Providers Care Pathology Tech Name Role Phone Unavailable Primary Care Provider Unavailabl e Encounter Details Date Type Department Care Team (Late st Contact Info) Description 10/26/2020 Transcribed Document [facility] Family Medicine [address] [place] [address] ProviderMariela MD [address] [place], [place] [id number] Social History Tobacco Use Types Packs/Day Years [...] Historical ProviderMD - 10/26/2020 2:06 AM CDT [place] Suicide Severity Rating Scale (C-SSRS) Entered On: 10/26/2020 3:22 EDT Performed On: 10/26/2020 3:19 EDT by Peggy Rayo RN [place] Suicide Severity Rating Scale (C-SSRS) CSSRS Past Month Wish to be : No CSSRS Past Month Suicidal Thoughts : No CSSRS Lifetime Suicide Behavior : No Suicide Severity Rating Score : 0 Suicide Severity Rating : No Additional Care Required at this time Peggy Rayo RN - 10/26/2020 3:19 EDT Electronically signed by Chantal [facility] Conversion Chief Strategy Officer Cerner at 06/16/2022 8:06 PM CDT documented in this encounter Plan of Treatment Not on file documented as of this encounter Visit Diagnoses Not on filedocumented in this encounter
--- OUTSIDE RECORDS SUMMARY | 2024-11-29 09:38 | XMS_ITS | Encounter Summary ---
Author Organization [employer] ([place], [place], [place], [place]) Address [address] [place] [address] Care Team Providers Care Pony Roll Finisher Name Role Phone Unavailable Primary Care Provider Unavailabl e Encounter Details Date Type Department Care Team (Late st Contact Info) Description 08/27/2020 Transcribed Document [facility] [place] [facility] [place] [address] ProviderMariela MD [facility] [place] [address] Social History Tobacco Use Types [...]
--- OUTSIDE RECORDS SUMMARY | 2024-11-29 09:38 | XMS_ITS | Encounter Summary ---
Author Organization [employer] ([place], [place], [place], [place]) Address [address] [place] [address] Care Team Providers Care Supervisor Furnace Process Name Role Phone Unavailable Primary Care Provider Unavailabl e Encounter Details Date Type Department Care Team (Late st Contact Info) Description 08/28/2020 Transcribed Document [facility] Family Medicine [address] [place] [address] ProviderMariela MD [address] [place] [address] Social History Tobacco Use Types [...] Anika Clark RN - 08/28/2020 9:17 EDT Electronically signed by Maureen Cornejo Conversion Manager [facility] Min at 06/16/2022 8:16 PM CDT documented in this encounter Plan of Treatment Not on file documented as of this encounter Visit Diagnoses Not on filedocumented in this encounter
--- OUTSIDE RECORDS SUMMARY | 2024-11-29 09:38 | XMS_ITS | Encounter Summary ---
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 [phone] documented in this encounter Plan of Treatment Not on file documented as of this encounter Visit Diagnoses Not on filedocumented in this encounter
--- OUTSIDE RECORDS SUMMARY | 2024-11-29 09:38 | XMS_ITS | Encounter Summary ---
Author Organization [employer] ([place], [place], [place], [place]) Address [address] [address] Care Team Providers Care Roping Machine Tender Name Role Phone Unavailable Primary Care Provider Unavailabl e Encounter Details Date Type Department Care Team (Late st Contact Info) Description 07/17/2019 Transcribed Document [facility] Family Medicine [facility] [place] [address] ProviderMariela MD [address] [place] [address] Social History Tobacco Use Types [...]
--- OUTSIDE RECORDS SUMMARY | 2024-11-29 09:38 | XMS_ITS | Encounter Summary ---
Author Organization [employer] ([place], [place], [place], [place]) Address [address] [place] [address] Care Team Providers Care Nuclear Plant Construction Worker Name Role Phone Unavailable Primary Care Provider Unavailabl e Encounter Details Date Type Department Care Team (Late st Contact Info) Description 09/03/2020 Transcribed Document [facility] [place] Family Medicine [facility] [place] [address] ProviderMariela MD [address] [place] [address] Social History Tobacco Use Types [...] Insurance 1 Health Plan: [facility] MEDICARE ADVANTAGE Policy Number: [id number] Authorization Number: [id number] Insurance Primary Name : [facility] MEDICARE ADVANTAGE Policy Number: [id number] Authorization Status-Primary : Admit approved Reference Number-Primary : [id number] Authorization Number-Primary : [id number] Number of Days Authorized-Primary : 7 Day(s) Authorized Service Begin Date-Primary : 08/20/2020 EDT Authorized Service End Date-Primary : 08/27/2020 EDT Authorization Comments-Primary : [facility] all days covered per website Historical Authorization Comments-Primary : Comment 1: Uploaded cont stay clinicals (08/22-08/26/20) to [employer] Medicare via [employer]. (KARAN WATSON RN-Utilization Review 08/26/2020 10:04) Comment 2: Uploaded cont stay clinicals (08/21/20) to [employer] Medicare via [employer]. (KARAN WATSON RN-Utilization Review 08/21/2020 08:36) Comment 3: Note on [facility] website:Patient was initially scheduled for Right [...]
--- OUTSIDE RECORDS SUMMARY | 2024-11-29 09:38 | XMS_ITS | Encounter Summary ---
Author Organization [employer] ([place], [place], [place], [place]) Address [address] [place] [address] Care Team Providers Care Follow Up Manager Name Role Phone Unavailable Primary Care Provider Unavailabl e Encounter Details Date Type Department Care Team (Late st Contact Info) Description 08/28/2020 Transcribed Document [facility] Family Medicine [address] [place] [address] ProviderMariela MD [address] [place] [address] Social History Tobacco Use Types [...]
--- OUTSIDE RECORDS SUMMARY | 2024-11-29 09:38 | XMS_ITS | Encounter Summary ---
Author Organization [employer] ([place], [place]) Address [address] [place] [address] Care Team Providers Care Hose Inspector Name Role Phone Unavailable Primary Care Provider Unavailabl e Encounter Details Date Type Department Care Team (Late st Contact Info) Description 08/28/2020 Transcribed Document [facility] [place] [facility] [place] [address] ProviderMariela MD [facility] [place] [address] Social History Tobacco Use Types [...] On: 08/28/2020 13:49 EDT by JAMES IBANEZ GLOVE OPERATOR Discharge Summary Reason for Discharge : Discharged from hospital JAMES IBANEZ PTA - 08/28/2020 13:49 EDT Discharge Summary Comment, PT : Patient was discharged to rehab follow up from [facility] on 08/28/20 having met 0/2 acute therapy goals. At time of discharge patient was maxA x2 with bed mobility, and participated with exercises while sitting EOB. I agree with this discharge summary. Kiara Simon, PT KIARA SIMON, PT - 08/28/2020 15:05 EDT Snf Goals Other PT LTG Grid Goal #1 [...] for bed MAX Ax2 08/26 JAMES IBANEZ, GLOVE OPERATOR - 08/28/2020 13:49 EDT JAMES IBANEZ, GLOVE OPERATOR - 08/28/2020 13:49 EDT JAMES IBANEZ, GLOVE OPERATOR - 08/28/2020 13:49 EDT documented in this encounter Plan of Treatment Not on file documented as of this encounter Visit Diagnoses Not on filedocumented in this encounter
--- OUTSIDE RECORDS SUMMARY | 2024-11-29 09:38 | XMS_ITS | Encounter Summary ---
Author Organization [employer] ([place], [place], [place], [place]) Address [address] [place] [address] Care Team Providers Care X Ray Equipment Servicer Name Role Phone Unavailable Primary Care Provider Unavailabl e Encounter Details Date Type Department Care Team (Late st Contact Info) Description 08/21/2020 Transcribed Document [facility] Family Medicine [facility] [place] [address] ProviderMariela MD [address] [place] [...]
--- OUTSIDE RECORDS SUMMARY | 2024-11-29 09:38 | XMS_ITS | Encounter Summary ---
Author Organization [employer] ([place], [place], [place], [place]) Address [address] [place] [address] Care Team Providers Care Fishing Manager Name Role Phone Unavailable Primary Care Provider Unavailabl e Encounter Details Date Type Department Care Team (Late st Contact Info) Description 07/17/2019 Transcribed Document [facility] Family Medicine [facility] [place] [address] ProviderMariela MD [address] [place] [phone] Social History Tobacco Use Types Packs/Day Years [...] 0.9% 100 mL 2 Gram, IV Piggyback, A17LUgr cyanocobalamin 1,000 mcg tab 5,000 mcg 5 [...] Oral, Q4H fluticasone 0.05% nasal spray 2 [place], Nostrils Both, BID magnesium hydroxide 8% liq [...] % 21.2 % Lymph # 1.73 x10(3)/uL Green % 9.7 % [place] Green # 0.79 K/uL Eos % 5.8 % [...]
--- OUTSIDE RECORDS SUMMARY | 2024-11-29 09:38 | XMS_ITS | Encounter Summary ---
Author Organization [employer] ([place], [place], [place], [place]) Address [address] [place] [address] Care Team Providers Care Electric Switch Tester Name Role Phone Unavailable Primary Care Provider Unavailabl e Encounter Details Date Type Department Care Team (Late st Contact Info) Description 08/21/2020 Transcribed Document [facility] [place] [facility] [place] [address] ProviderMariela MD [address] [place] [address] Social History Tobacco Use Types [...] Policy Numbers : Insurance 1 Health Plan: [facility] MEDICARE ADVANTAGE Policy Number: [id number] Authorization Number: [id number] Insurance Primary Name : [facility] MEDICARE ADVANTAGE Policy Number: [id number] Authorization Status-Primary : Admit approved Reference Number-Primary : [id number] Authorization Number-Primary : [id number] Number of Days Authorized-Primary : 0 Day(s) Authorized Service Begin Date-Primary : 08/20/2020 EDT Authorized Service End Date-Primary : 08/20/2020 EDT Authorization Comments-Primary : Uploaded cont stay clinicals (08/21/20) to [facility] Medicare via [employer]. Historical Authorization Comments-Primary : Comment 1: Note on [facility] website:Patient was initially scheduled for Right [...] AQUINO, RN-Utilization Review 08/19/2020 15:20) Comment 2: [facility] Medicare approved per website for 1 day (TIESHA AQUINO, RN-Utilization Review 08/19/2020 15:14) KARAN WATSON RN-Utilization Review - 08/21/2020 8:36 EDT Electronically signed by Maureen Cornejo Conversion Consumer Sales Representative Cerner at 06/16/2022 8:29 PM CDT documented in this encounter Plan of Treatment Not on file documented as of this encounter Visit Diagnoses Not on filedocumented in this encounter
--- OUTSIDE RECORDS SUMMARY | 2024-11-29 09:38 | XMS_ITS | Encounter Summary ---
Author Organization [employer] ([place], [place], [place], [place]) Address [address] [place] [address] Care Team Providers Care Hand Rug Braider Name Role Phone Unavailable Primary Care Provider Unavailabl e Encounter Details Date Type Department Care Team (Late st Contact Info) Description 08/28/2020 Transcribed Document [facility] [place] Family Medicine [facility] [place] [address] ProviderMariela MD [address] [place] [address] Social History Tobacco Use Types [...] Gates MD - 08/28/2020 9:17 [place] [address] SOFIA GILL :1940 Visit Time:08/20/2020 Your Visit [...] may reduce GI upset. Rehabilitation: [facility] for report Discharge Summary: fax to Transportation: [facility] will strip picker for 10am September 27. Discharge Follow Up Instructions: Follow-up with Dr. Saenz as scheduled, Order Comment: Follow-up with PCP as scheduled or PRN Activity: Per Dr. Hameed recommendations, Discharge Activity: Other (use Special Instructions) Diet: Discharge Diet: Resume usual diet as tolerated Follow-Up Appointments Follow Up with SOLOMON MCCRACKEN PA-C When 09/09/2020 10:00 AM EDT Where: [address] [facility] [address] [place] [address]- Medications What How Much When [...] (fluticasone 50 mcg/ inh nasal spray) 2 [place](s) Nostrils Both Two Times A Day as [...] or 4 frozen water bottles in the [facility]. ??? Continue to use Incentive Spirometer [...] Barley. Bulgur wheat. Millet. Bran muffins. Popcorn. [place] wafer crackers. ??? Vegetables Sweet potatoes. Spinach. Kale. Artichokes. Cabbage. Broccoli. Green peas. Carrots. Squash. ??? Fruits Berries. Pears. Apples. Oranges. Avocados. Prunes and raisins. Dried figs. ??? Meats and Other Protein Sources Hosmer, kidney, call, and soy beans. Split peas. [...] gray has 11 g of protein. ??? [place] seeds ??? 1 oz has 5.5 g [...] floor. ??? Place frequently used items in ifjm-pn-zosno places ??? Keep electrical cables out of [...] ? Using the bathroom. ? Using household bundles hanger or toxic chemicals. ? Touching or taking [...] oh fen) Actamin, Anacin AF, Aurophen, Bromo Shiloh, Children's Tylenol, Mapap, M-Pap, Pharbetol, Silapap Childrens, [...] is a pain reliever and a fever copy preparer. There are many brands and forms of [...] may report side effects to FDA at 1-867-CYP-7809. What other drugs will affect acetaminophen? Other drugs may affect acetaminophen, including prescription and lpfa-rpo-cqtfoue medicines, vitamins, and herbal products. Tell your [...] to ensure that the information provided by [employer]. ('Mult[employer]') is accurate, up-to-date, and complete, but no guarantee is made to that effect. Drug information contained herein may be time sensitive. [employer] information has been compiled for use by healthcare practitioners and consumers in the [place] and therefore [employer] does not warrant that uses outside of the [place] are appropriate, unless specifically indicated otherwise. [employer] drug information does not endorse drugs, diagnose patients or recommend therapy. [employer] drug information is an informational resource designed [...] effective or appropriate for any given patient. [employer] does not assume any responsibility for any aspect of healthcare administered with the aid of information [employer] provides. The information contained herein is not intended to cover all possible uses, directions, precautions, warnings, drug interactions, allergic reactions, or adverse effects. If you have questions about the drugs you are taking, check with your doctor, nurse or pharmacist. Copyright 0807-4955 [employer]. Version: 21.04. Revision Date: 10/06/2019. aspirin (oral) [...] What is aspirin? Aspirin is a salicylate (sc-FBO-bc-ate) that is used to treat pain, and [...] may report side effects to FDA at 5-701-RRB-4719. What other drugs will affect aspirin? Ask [...] drugs may affect aspirin, including prescription and bfxx-vub-tziuugj medicines, vitamins, and herbal products. Not all [...] to ensure that the information provided by [employer]. ('Multum') is accurate, up-to-date, and complete, but no guarantee is made to that effect. Drug information contained herein may be time sensitive. [employer] information has been compiled for use by healthcare practitioners and consumers in the [place] and therefore [employer] does not warrant that uses outside of the [place] are appropriate, unless specifically indicated otherwise. [employer] drug information does not endorse drugs, diagnose patients or recommend therapy. [employer] drug information is an informational resource designed [...] effective or appropriate for any given patient. [employer] does not assume any responsibility for any aspect of healthcare administered with the aid of information [employer] provides. The information contained herein is not intended to cover all possible uses, directions, precautions, warnings, drug interactions, allergic reactions, or adverse effects. If you have questions about the drugs you are taking, check with your doctor, nurse or pharmacist. Copyright 7112-9508 [employer]. Version: 16.02. Revision Date: 10/18/2019. gabapentin ([place] [...] are a day sleeper or work a security shift manager. Some people have thoughts about suicide while [...] may report side effects to FDA at 8-468-WFA-3827. What other drugs will affect gabapentin? Using gabapentin with other drugs that make you drowsy or slow your breathing can cause dangerous side effects or . Ask your doctor before using opioid medication, a sleeping pill, cold or allergy medicine, a muscle relaxer, or medicine for anxiety or seizures. Other drugs may affect gabapentin, including prescription and jupk-unr-nawwkci medicines, vitamins, and herbal products. Tell your [...] to ensure that the information provided by [employer]. ('Multum') is accurate, up-to-date, and complete, but no guarantee is made to that effect. Drug information contained herein may be time sensitive. [employer] information has been compiled for use by healthcare practitioners and consumers in the [place] and therefore [employer] does not warrant that uses outside of the [place] are appropriate, unless specifically indicated otherwise. [employer]'s drug information does not endorse drugs, diagnose patients or recommend therapy. [employer] drug information is an informational resource designed [...] effective or appropriate for any given patient. [employer] does not assume any responsibility for any aspect of healthcare administered with the aid of information [employer] provides. The information contained herein is not intended to cover all possible uses, directions, precautions, warnings, drug interactions, allergic reactions, or adverse effects. If you have questions about the drugs you are taking, check with your doctor, nurse or pharmacist. Copyright 9029-1173 [employer]. Version: 17.01. Revision Date: 03/26/2020. oxycodone (ox [...] The extended-release form of oxycodone is for nqfswn-ogi-szaks treatment of pain and should not be [...] against the law. Stop taking all other afjwcc-moj-zuimo opioid pain medicines when you start taking [...] may report side effects to FDA at 0-414-CDQ-0436. What other drugs will affect oxycodone? You [...] may affect oxycodone. This includes prescription and hgca-nnq-pwodjdl medicines, vitamins, and herbal products. Not all [...] to ensure that the information provided by [employer]. ('Multum') is accurate, up-to-date, and complete, but no guarantee is made to that effect. Drug information contained herein may be time sensitive. [employer] information has been compiled for use by healthcare practitioners and consumers in the [place] and therefore [employer] does not warrant that uses outside of the [place] are appropriate, unless specifically indicated otherwise. [employer] drug information does not endorse drugs, diagnose patients or recommend therapy. [employer] drug information is an informational resource designed [...] effective or appropriate for any given patient. [employer] does not assume any responsibility for any aspect of healthcare administered with the aid of information [employer] provides. The information contained herein is not intended to cover all possible uses, directions, precautions, warnings, drug interactions, allergic reactions, or adverse effects. If you have questions about the drugs you are taking, check with your doctor, nurse or pharmacist. Copyright 6332-2537 [employer]. Version: 14.02. Revision Date: 03/28/2020. oxycodone (ox [...] The extended-release form of oxycodone is for vwhmae-njc-ubqnm treatment of pain and should not be [...] against the law. Stop taking all other gbvnxc-kgq-lqcbl opioid pain medicines when you start taking [...]
--- OUTSIDE RECORDS SUMMARY | 2024-11-29 09:38 | XMS_ITS | Encounter Summary ---
Author Organization [employer] ([place], [place], [place], [place]) Address [address] [place] [address] Care Team Providers Care Oracle Solutions Architect Name Role Phone Unavailable Primary Care Provider Unavailabl e Encounter Details Date Type Department Care Team (Late st Contact Info) Description 08/28/2020 Transcribed Document [facility] [place] [facility] [place] [address] ProviderMariela MD [address] [place], [place] [address] Social History Tobacco Use Types Packs/Day Years [...] 08/28/2020 10:18 EDT Electronically signed by Chantal [facility] Conversion Plastic Extrusion Operator Cerner at 06/16/2022 8:23 PM CDT documented in this encounter Plan of Treatment Not on file documented as of this encounter Visit Diagnoses Not on filedocumented in this encounter
--- OUTSIDE RECORDS SUMMARY | 2024-11-29 09:38 | XMS_ITS | Encounter Summary ---
Author Organization [employer] ([place], [place], [place], [place]) Address [address] [place] [address] Care Team Providers Care Drafter Assistant Name Role Phone Unavailable Primary Care Provider Unavailabl e Encounter Details Date Type Department Care Team (Late st Contact Info) Description 08/21/2020 Transcribed Document [facility] [place] [address] [place] [address] ProviderMariela MD [address] [place] [address] Social History Tobacco Use Types [...]
--- OUTSIDE RECORDS SUMMARY | 2024-11-29 09:38 | XMS_ITS | Encounter Summary ---
Author Organization [employer] ([place], [place], [place], [place]) Address [address] [place] [address] Care Team Providers Care Agricultural Produce Sorter Name Role Phone Unavailable Primary Care Provider Unavailabl e Encounter Details Date Type Department Care Team (Late st Contact Info) Description 08/27/2020 Transcribed Document [facility] [place] [facility] [place] [address] ProviderMariela MD [facility] [place] [address] Social History Tobacco Use Types [...] Historical ProviderMD - 08/27/2020 2:00 AM CDT House Piping Inspector Details Entered On: 08/27/2020 6:49 EDT Performed [...] Jessica Ovalle Lpn - 08/27/2020 6:49 EDT Electronically signed by Maureen Cornejo Conversion Metal Milling Machine Operator Cerner at 06/16/2022 8:23 PM CDT documented in this encounter Plan of Treatment Not on file documented as of this encounter Visit Diagnoses Not on filedocumented in this encounter
--- OUTSIDE RECORDS SUMMARY | 2024-11-29 09:38 | XMS_ITS | Encounter Summary ---
Author Organization [employer] ([place], [place], [place], [place]) Address [address] [place] [address] Care Team Providers Care Sales Product Manager Name Role Phone Unavailable Primary Care Provider Unavailabl e Encounter Details Date Type Department Care Team (Late st Contact Info) Description 07/17/2019 Transcribed Document [facility] [place] Medicine [facility] [place] [address] ProviderMariela MD [address] [place] [address] Social History Tobacco Use Types Packs/Day Years [...]
--- OUTSIDE RECORDS SUMMARY | 2024-11-29 09:38 | XMS_ITS | Encounter Summary ---
Author Organization [employer] ([place], [place], [place], [place]) Address [address] [place] [address] Care Team Providers Care Cook Helper Name Role Phone Unavailable Primary Care Provider Unavailabl e Encounter Details Date Type Department Care Team (Late st Contact Info) Description 07/17/[address] [facility] [place] Medicine [facility] [place] [address] ProviderMairela MD [address] [place] [address] Social History Tobacco Use Types [...] 07/17/19 10:32:31 07/17/2019 faxed clinical review the [facility] at [phone] to request approval for extended ltac services. Auth#[id number], awaiting approval. CM/Discharge plan attached to review. СВЕТЛАНА WANG - 07/17/19 09:06:05 07/17/[address] Jaffe's progress note, yahaira may be removed if okay with Dr. Saenz's office. Per our WOCN, Dr. Saenz's office said they need to see her before they make that decision. Appt scheduled for tomorrow, 07/18/2019 @ 1415; [facility] round-trip transport scheduled for 1315 pick-up ([id number]). Spoke with Lexy Valdez, they have not yet began the patient's insurance preauth, they will today, and be ready to admit on Wednesday. Dr. Jaffe notified and in agreement. [facility] rescheduled for discharge 07/19/2019 @ 1400 ([id number]). YOANNA ARAUJO RN - 07/14/19 15:41:31 Yoanna Araujo 07/13/2019 1500 - patient has accepted bed offer at [facility], she will be transported on WednesdayJuly 16 at 2pm by [facility] Confirmation # [id number]. She declined the bed offer at [facility]. Dr. Jaffe notified of discharge plan. YOANNA ARAUJO, EDDIE - 07/13/19 14:37:44 Yoanna Araujo 07/13/2019 1400 received call from Ratna with [facility] offering patient a bed, Received call from Isabelle with [facility] she is looking at patient and needed a current height and weight. Still waiting to see if any other bed offers come through. I also sent referral to [facility]. YOANNA ARAUJO, EDDIE - 07/13/19 11:04:03 Yoanna Araujo 07/13/2019 1100 faxed out referral for placement for patient to [facility] nursing [facility] rehab, [facility] facilities and [facility]. Awaiting call backs. СВЕТЛАНА WANG - 07/12/19 12:19:17 07/12/2019 Fax received from [facility] with approval for LTAC services with a request for updated discharge plans and clinical info to support needs if not discharged. Auth#[id number]. Clinical review or discharge summary to be faxed by 07/17/2019. YOANNA ARAUJO RN - 07/12/19 08:39:48 Yoanna Araujo 07/12/2019 0830 - faxed clinical review the [facility] at [phone] to request approval for extended ltac services. Auth#[id number], awaiting approval. YOANNA ARAUJO RN - 06/29/19 [...] health and she has been to [facility] in the past. She has the following equipment at home: wheel chair, walker, cane and shower chair. Her discharge plan is to go to rehab prior to returning home. PCP: Flavia MARQUEZ [address] [place] [address] Supervisor Wet Pour: Dr. Shemar Barger [address] [place] [address] [address] Clemente Del Rio MD - Rheumatology - [address] [place], [place] [id number] Preferences: Home Health: [facility]: no preferences DME: [facility] - [address] [facility] [address] [place] [id number] Jail: [facility] facility: no preferences Will continue to monitor patient for anticipated discharge needs YOANNA ARAUJO RN - 06/29/19 08:30:20 Yoanna Araujo 06/29/2019 0830 received fax from [employer] [facility] with approval for extended ltac coverage with next clinical review due on 07/12/2019. Auth#[id number]. Will continue to follow for anticipated discharge needs. YOANNA ARAUJO RN - 06/28/19 08:35:06 Yoanna Araujo 06/28/2019 0830 Faxed clinical review to [facility] at to request approval for extended Ltac services. Auth#[id number]. Pending Approval. Documentation Status Complete : Yes СВЕТЛАНА WANG - 07/17/2019 11:29 EDT documented in this encounter Plan of Treatment Not on file documented as of this encounter Visit Diagnoses Not on filedocumented in this encounter
--- OUTSIDE RECORDS SUMMARY | 2024-11-29 09:38 | XMS_ITS | Encounter Summary ---
Author Organization [employer] ([place], [place], [place], [place]) Address [address] [place] [address] Care Team Providers Care Workcell Operator Name Role Phone Unavailable Primary Care Provider Unavailabl e Encounter Details Date Type Department Care Team (Late st Contact Info) Description 08/21/2020 Transcribed Document [facility] [place] [address] ProviderMariela MD [address] [place] [address] Social History Tobacco Use [...]
--- OUTSIDE RECORDS SUMMARY | 2024-11-29 09:38 | XMS_ITS | Encounter Summary ---
Author Organization [employer] ([place], [place], [place], [place]) Address [address] [place] [address] Care Team Providers Care Bingo Cashier Name Role Phone Unavailable Primary Care Provider Unavailabl e Encounter Details Date Type Department Care Team (Late st Contact Info) Description 07/17/2019 Transcribed Document [facility] [place] [facility] [place] [address] ProviderMariela MD [address] [place] [address] Social History Tobacco Use Types Packs/Day [...]
--- OUTSIDE RECORDS SUMMARY | 2024-11-29 09:38 | XMS_ITS | Encounter Summary ---
Author Organization [employer] ([place], [place], [place], [place]) Address [address] [place] [address] Care Team Providers Care Sealing Machine Operator Name Role Phone Unavailable Primary Care Provider Unavailabl e Encounter Details Date Type Department Care Team (Late st Contact Info) Description 08/28/2020 Transcribed Document [facility] [place] [facility] [place] [address] ProviderMariela MD [facility] [place] [address] Social History Tobacco Use Types [...] Referral(s): Service: Organization: Business Address: Phone Number: [facility] at [address], [place], [address] Patient Offered Choice/Affiliations Explained : [...] denied patient for rehab. Isabelle from [facility] spoke to patient and she can go Self pay. Patient will be going to room 208 at [facility]. [facility] set up for 10 am on WednesdayAugust 28. [facility] at [facility] notified of patient going to SNF per Esteban pharmacist. Scripts will be faxed over to Pharmacy at [facility]. Case Management will continue to follow patient til discharge. Moni Xavier Rn - 08/28/2020 13:26 EDT documented in this encounter Plan of Treatment Not on file documented as of this encounter Visit Diagnoses Not on filedocumented in this encounter
--- OUTSIDE RECORDS SUMMARY | 2024-11-29 09:38 | XMS_ITS | Encounter Summary ---
Author Organization [employer] ([place], [place], [place], [place]) Address [address] [place] [address] Care Team Providers Care Multifocal Lens Assembler Name Role Phone Unavailable Primary Care Provider Unavailabl e Encounter Details Date Type Department Care Team (Late st Contact Info) Description 08/21/2020 Transcribed Document [facility] [place] Medicine [facility] [place] [address] ProviderMariela MD [facility] [place] [address] Social History Tobacco Use Types [...] MANUEL ODELL YA - 08/23/2020 14:15 EDT [facility] Goals, OT Other LTG Grid Goal #1 [...] due to restrictings, pre-morbid limitations FELTON RUSH OTR/L - 08/23/2020 14:15 EDT [...] 08/23/2020 14:15 EDT Electronically signed by Chantal [facility] Conversion Staff Mechanical Engineer Cerner at 06/21/2022 2:02 PM CDT documented in this encounter Plan of Treatment Not on file documented as of this encounter Visit Diagnoses Not on filedocumented in this encounter
--- OUTSIDE RECORDS SUMMARY | 2024-11-29 09:38 | XMS_ITS | Encounter Summary ---
Author Organization [employer] ([place], [place], [place], [place]) Address [address] [place] [address] Care Team Providers Care Inside Sales Territory Manager Name Role Phone Unavailable Primary Care Provider Unavailabl e Encounter Details Date Type Department Care Team (Late st Contact Info) Description 08/27/2020 Transcribed Document [facility] [place] [facility] [place] [address] ProviderMariela MD [facility] [place] [address] Social History Tobacco Use Types [...]
--- OUTSIDE RECORDS SUMMARY | 2024-11-29 09:38 | XMS_ITS | Encounter Summary ---
Author Organization [employer] ([place], [place], [place], [place]) Address [address] [place] [address] Care Team Providers Care Payroll Officer Name Role Phone Unavailable Primary Care Provider Unavailabl e Encounter Details Date Type Department Care Team (Late st Contact Info) Description 08/21/2020 Transcribed Document [facility] [place] [facility] [place] [address] ProviderMariela MD [address] [place] [address] Social History Tobacco Use Types [...]
--- OUTSIDE RECORDS SUMMARY | 2024-11-29 09:39 | XMS_ITS | Encounter Summary ---
Author Organization [employer] ([place], [place], [place], [place]) Address [address] [place] [address] Care Team Providers Care Photograph Developer Name Role Phone Unavailable Primary Care Provider Unavailabl e Encounter Details Date Type Department Care Team (Late st Contact Info) Description 07/19/2019 Transcribed Document [facility] [place] [address] [place] [address] ProviderMariela MD [address] [place], [place] [id number] Social History Tobacco Use Types Packs/Day Years [...] Historical ProviderMD - 07/19/2019 2:00 AM CDT Building Cleaner Details Entered On: 07/19/2019 2:02 EDT Performed [...] 07/19/2019 2:01 EDT Electronically signed by Chantal [facility] Conversion Associate Chief Nurse Cerner at 06/16/2022 8:17 PM CDT documented in this encounter Plan of Treatment Not on file documented as of this encounter Visit Diagnoses Not on filedocumented in this encounter
--- OUTSIDE RECORDS SUMMARY | 2024-11-29 09:39 | XMS_ITS | Encounter Summary ---
Author Organization [employer] ([place], [place], [place], [place]) Address [address] [place] [address] Care Team Providers Care Protocol Manager Name Role Phone Unavailable Primary Care Provider Unavailabl e Encounter Details Date Type Department Care Team (Late st Contact Info) Description 06/22/2019 Transcribed Document [facility] [place] [facility] [place] [address] ProviderMariela MD [facility] [place] [address] Social History Tobacco Use Types [...] PRN Chloraseptic Menthol 1.4% topical spray, 1 [place], Oral, Q2H, PRN cloNIDine, 0.1 mg= 1 [...] Daily fluticasone 50 mcg/inh nasal spray, 2 [place], Nostrils Both, BID, PRN gabapentin, 300 mg= [...] ALYC # 1 K/uL 06/22/2019 02:40 EDT [place] Percent Man 6 % (High) 06/22/2019 02:40 EDT [place] Percent Man 3 % (High) 06/22/2019 02:40 EDT [place] Percent Man 2 % (High) 06/22/2019 02:40 EDT RBC Morphology Normal 06/22/2019 02:[address] Estimate Adequate 06/22/2019 02:40 EDT Body Fluid Type Synovial fluid 06/21/2019 12:55 EDT Color BF Red 06/21/2019 12:55 EDT Appearance BF Bloody 06/21/2019 12:55 EDT [place] [address] /uL (High) 06/21/2019 12:55 EDT Auto RBC BF [id number] /uL (High) 06/21/2019 12:55 EDT Neutrophils Body [...]
--- OUTSIDE RECORDS SUMMARY | 2024-11-29 09:39 | XMS_ITS | Encounter Summary ---
Author Organization [employer] ([place], [place], [place], [place]) Address [address] [place] [address] Care Team Providers Care Training Associate Name Role Phone Unavailable Primary Care Provider Unavailabl e Encounter Details Date Type Department Care Team (Late st Contact Info) Description 07/19/2019 Transcribed Document [facility] [place] [facility] [place] [address] ProviderMariela MD [address] [place] [address] Social History Tobacco Use Types Packs/Day [...] HOWIE WETZEL PTA - 07/19/2019 12:34 EDT Autoclave Operator Goals Mobility/Bed Mobility LTG PT Grid Goal [...] PTA - 07/19/2019 12:34 EDT HOWIE WETZEL, CHRONOMETER ASSEMBLER AND ADJUSTER - 07/19/2019 12:34 EDT Electronically signed by [facility], [facility] Conversion Chute Tender Cerner at 06/16/2022 8:20 PM CDT documented in this encounter Plan of Treatment Not on file documented as of this encounter Visit Diagnoses Not on filedocumented in this encounter
--- OUTSIDE RECORDS SUMMARY | 2024-11-29 09:39 | XMS_ITS | Encounter Summary ---
Author Organization [employer] ([place], [place], [place], [place]) Address [address] [place] [address] Care Team Providers Care Summer Child Caregiver Name Role Phone Unavailable Primary Care Provider Unavailabl e Encounter Details Date Type Department Care Team (Late st Contact Info) Description 08/27/2018 Transcribed Document [facility] [place] [address] ProviderMariela MD [address] [place] [address] Social History Tobacco Use Types Packs/Day Years [...] Historical ProviderMD - 08/27/2018 2:00 AM CDT Torch Brazer Details Entered On: 08/27/2018 0:45 EDT Performed [...]
--- OUTSIDE RECORDS SUMMARY | 2024-11-29 09:39 | XMS_ITS | Encounter Summary ---
Author Organization [employer] ([place], [place], [place], [place]) Address [address] [place] [address] Care Team Providers Care Research Food Technologist Name Role Phone Unavailable Primary Care Provider Unavailabl e Encounter Details Date Type Department Care Team (Late st Contact Info) Description 08/13/2020 Transcribed Document [facility] [place] [address] [place] [address] ProviderMariela MD [address] [place] [address] Social History Tobacco Use Types [...]
--- OUTSIDE RECORDS SUMMARY | 2024-11-29 09:39 | XMS_ITS | Encounter Summary ---
Author Organization [employer] ([place], [place], [place], [place]) Address [address] [place] [address] Care Team Providers Care Bounty Trapper Name Role Phone Unavailable Primary Care Provider Unavailabl e Encounter Details Date Type Department Care Team (Late st Contact Info) Description 06/26/2019 Transcribed Document [facility] [place] Family Medicine [address] [place] [address] ProviderMariela MD [address] [place] [address] Social History Tobacco Use Types Packs/Day Years [...]
--- OUTSIDE RECORDS SUMMARY | 2024-11-29 09:39 | XMS_ITS | Encounter Summary ---
Author Organization [employer] ([place], [place], [place], [place]) Address [address] [place] [address] Care Team Providers Care Banking Specialist Name Role Phone Unavailable Primary Care Provider Unavailabl e Encounter Details Date Type Department Care Team (Late st Contact Info) Description 10/26/2020 Transcribed Document [facility] [place] [facility] [place] [address] ProviderMariela MD [address] [place] [address] Social History Tobacco Use Types Packs/Day [...] : 3 - Urgent Tracking Group : [facility] ED [place] Peggy Rayo RN - 10/26/2020 2:32 EDT Mode of Arrival : Stretcher Transported to ED by : Ambulance/ALS EMS Service : [place] To Room Via : Stretcher Accompanied By : lens mounter ED Vital Signs : Document Height & [...] PNED ; Probability: 0 ; Diagnosis Code: [id number] Lower leg pain-swelling Date: 10/26/2020 ; Diagnosis Type: Reason For Visit ; Confirmation: Confirmed ; Clinical Dx: Lower leg pain-swelling ; Classification: Medical ; Clinical Service: Emergency medicine ; Code: PNED ; Probability: 0 ; Diagnosis Code: [id number] ED Height and Weight Height Source : Stated Height Entry Format : [place] Height, Feet : 5 ft(Converted to: 152 cm, 60 Inch) Height, Inches : 0 Inch(Converted to: 0 ft 0 Inch, 0.00 cm) Clinical Height : 152.4 cm Weight Source, ED : Critical estimated dosing weight Weight Entry Format : [place] Weight, Pounds : 200 lb Clinical Dosing Weight : 90.91 kg Body Surface Area (BSA) : 1.87 m2 Body Mass Index : 39.1 kg/m2 (HI) [place] Body Weight (IBW) : 49.16 kg Peggy [...]
--- OUTSIDE RECORDS SUMMARY | 2024-11-29 09:39 | XMS_ITS | Encounter Summary ---
Author Organization [employer] ([place], [place], [place], [place]) Address [address] [place] [address] Care Team Providers Care Hog Raiser Name Role Phone Unavailable Primary Care Provider Unavailabl e Encounter Details Date Type Department Care Team (Late st Contact Info) Description 10/26/2020 Transcribed Document [facility] [place] [address] [place] [address] ProviderMariela MD [address] [place] [address] Social History Tobacco Use Types [...] 14:18 EDT ED Description of Event : [place] called and handoff report given to [place] staff Nancy Sood RN-PATIENT CARE BEDSIDE NON-EXEMPT - 10/26/2020 14:18 EDT documented in this encounter Plan of Treatment Not on file documented as of this encounter Visit Diagnoses Not on filedocumented in this encounter
--- OUTSIDE RECORDS SUMMARY | 2024-11-29 09:39 | XMS_ITS | Encounter Summary ---
Author Organization [employer] ([place], [place], [place], [place]) Address [address] [place] [address] Care Team Providers Care Web Analyst Name Role Phone Unavailable Primary Care Provider Unavailabl e Encounter Details Date Type Department Care Team (Late st Contact Info) Description 07/19/2019 Transcribed Document [facility] [place] [facility] [place] [address] ProviderMariela MD [address] [place] [address] Social History Tobacco Use Types [...] 02/01/2017 Elsevier Interactive Patient Education ? 2019 [employer] documented in this encounter Plan of Treatment Not on file documented as of this encounter Visit Diagnoses Not on filedocumented in this encounter
--- OUTSIDE RECORDS SUMMARY | 2024-11-29 09:39 | XMS_ITS | Encounter Summary ---
Author Organization [employer] ([place], [place], [place], [place]) Address [address] [place] [address] Care Team Providers Care Quality Assurance Lab Technician Name Role Phone Unavailable Primary Care Provider Unavailabl e Encounter Details Date Type Department Care Team (Late st Contact Info) Description 08/27/2018 Transcribed Document [facility] [place] [address] [place] [address] ProviderMariela MD [address] [place], [place] [id number] Social History Tobacco Use Types Packs/Day Years [...]
--- OUTSIDE RECORDS SUMMARY | 2024-11-29 09:39 | XMS_ITS | Encounter Summary ---
Author Organization [employer] ([place], [place], [place], [place]) Address [address] [place] [address] Care Team Providers Care Supervisor Trust Accounts Name Role Phone Unavailable Primary Care Provider Unavailabl e Encounter Details Date Type Department Care Team (Late st Contact Info) Description 07/08/2019 Transcribed Document [facility] [place] Family Medicine [address] [place] [address] ProviderMariela MD [address] [place], [place] [id number] Social History Tobacco Use Types Packs/Day Years [...]
--- OUTSIDE RECORDS SUMMARY | 2024-11-29 09:39 | XMS_ITS | Encounter Summary ---
Author Organization [employer] ([place], [place], [place], [place]) Address [address] [place] [address] Care Team Providers Care Speech Language Pathology Assistant Name Role Phone Unavailable Primary Care Provider Unavailabl e Encounter Details Date Type Department Care Team (Late st Contact Info) Description 06/22/2019 Transcribed Document [facility] [place] [facility] [place] [address] ProviderMariela MD [address] [place] [id number] Social History Tobacco Use Types Packs/Day Years [...]
--- OUTSIDE RECORDS SUMMARY | 2024-11-29 09:39 | XMS_ITS | Encounter Summary ---
Author Organization [employer] ([place], [place], [place], [place]) Address [address] [place] [address] Care Team Providers Care Tire Servicer Name Role Phone Unavailable Primary Care Provider Unavailabl e Encounter Details Date Type Department Care Team (Late st Contact Info) Description 06/22/2019 Transcribed Document [facility] [place] Family Medicine [address] [place] [address] ProviderMariela MD [address] [place], [place] [id number] Social History Tobacco Use Types Packs/Day Years [...] EDT Electronically signed by Maureen Cornejo Conversion Industry Operations Investigator Min at 06/16/2022 8:16 PM CDT documented in this encounter Plan of Treatment Not on file documented as of this encounter Visit Diagnoses Not on filedocumented in this encounter
--- OUTSIDE RECORDS SUMMARY | 2024-11-29 09:39 | XMS_ITS | Encounter Summary ---
Author Organization [employer] ([place], [place], [place], [place]) Address [address] [place] [address] Care Team Providers Care Grinder Carbon Plant Name Role Phone Unavailable Primary Care Provider Unavailabl e Encounter Details Date Type Department Care Team (Late st Contact Info) Description 07/09/2019 Transcribed Document [facility] [place] Family Medicine [address] [place] [address] ProviderMariela MD [address] [place] [address] Social History Tobacco Use Types [...]
--- OUTSIDE RECORDS SUMMARY | 2024-11-29 09:39 | XMS_ITS | Encounter Summary ---
Author Organization [employer] ([place], [place], [place], [place]) Address [address] [place] [address] Care Team Providers Care Orthotic Assistant Name Role Phone Unavailable Primary Care Provider Unavailabl e Encounter Details Date Type Department Care Team (Late st Contact Info) Description 06/25/2019 Transcribed Document [facility] [place] Medicine [facility] [place] [address] ProviderMariela MD [address] [place] [address] Social History Tobacco Use Types Packs/Day [...] 0.9% 50 mL 2 Gram, IV Piggyback, [id number] cyanocobalamin 1,000 mcg tab 5,000 mcg 5 [...] At Bedtime fluticasone 0.05% nasal spray 2 [place], Nostrils Both, BID LORazepam 2 mg/mL inj [...] Topical, Q1H phenol 1.4% throat spray 1 [place], Oral, Q2H potassium chloride 10 mEq 100 [...]
--- OUTSIDE RECORDS SUMMARY | 2024-11-29 09:39 | XMS_ITS | Encounter Summary ---
Author Organization [employer] ([place], [place], [place], [place]) Address [address] [place] [address] Care Team Providers Care Editorial Specialist Name Role Phone Unavailable Primary Care Provider Unavailabl e Encounter Details Date Type Department Care Team (Late st Contact Info) Description 08/26/2018 Transcribed Document [facility] Radiology [address] [place] [address] Emely Atkinson MD [address] [place] [address] Social History Tobacco Use Types Packs/Day [...]
--- OUTSIDE RECORDS SUMMARY | 2024-11-29 09:39 | XMS_ITS | Encounter Summary ---
Author Organization [employer] ([place], [place], [place], [place]) Address [address] [place] [address] Care Team Providers Care Process Engineer Name Role Phone Unavailable Primary Care Provider Unavailabl e Encounter Details Date Type Department Care Team (Late st Contact Info) Description 06/24/2019 Transcribed Document [facility] [place] [facility] [place] [address] ProviderMariela MD [address] [place] [address] Social History Tobacco Use Types Packs/Day [...] form. Electronically signed by Maureen Cornejo Conversion Financial Accounting Manager Cerner at 06/16/2022 8:18 PM CDT documented in this encounter Plan of Treatment Not on file documented as of this encounter Visit Diagnoses Not on filedocumented in this encounter
--- OUTSIDE RECORDS SUMMARY | 2024-11-29 09:39 | XMS_ITS | Encounter Summary ---
Author Organization [employer] ([place], [place], [place], [place]) Address [address] [place] [address] Care Team Providers Care Lead Systems Developer Name Role Phone Unavailable Primary Care Provider Unavailabl e Encounter Details Date Type Department Care Team (Late st Contact Info) Description 07/09/2019 Transcribed Document [facility] [place] [facility] [place] [address] ProviderMariela MD [address] [place], [place] [id number] Social History Tobacco Use Types Packs/Day Years [...] Historical ProviderMD - 07/09/2019 2:00 AM CDT Defensive Line Coach Details Entered On: 07/09/2019 6:14 EDT Performed [...] 07/09/2019 6:14 EDT Electronically signed by Chantal [facility] Conversion Traffic Controller Cable Cerner at 06/16/2022 8:06 PM CDT documented in this encounter Plan of Treatment Not on file documented as of this encounter Visit Diagnoses Not on filedocumented in this encounter
--- OUTSIDE RECORDS SUMMARY | 2024-11-29 09:39 | XMS_ITS | Encounter Summary ---
Author Organization [employer] ([place], [place], [place], [place]) Address [address] [place] [address] Care Team Providers Care Switchman Name Role Phone Unavailable Primary Care Provider Unavailabl e Encounter Details Date Type Department Care Team (Late st Contact Info) Description 08/26/2018 Transcribed Document [facility] [place] [facility] [place] [address] ProviderMariela MD [address] [place] [address] Social History Tobacco Use [...] CDS Signature: Leonarda BOWLING, RN Phone #: [phone] This is a permanent part of the Medical Record documented in this encounter Plan of Treatment Not on file documented as of this encounter Visit Diagnoses Not on filedocumented in this encounter
--- OUTSIDE RECORDS SUMMARY | 2024-11-29 09:39 | XMS_ITS | Encounter Summary ---
Author Organization [employer] ([place], [place], [place], [place]) Address [address] [place] [address] Care Team Providers Care Electrician Crane Maintenance Name Role Phone Unavailable Primary Care Provider Unavailabl e Encounter Details Date Type Department Care Team (Late st Contact Info) Description 07/10/2019 Transcribed Document [facility] [place] [facility] [place] [address] ProviderMariela MD [address] [place] [address] Social History Tobacco Use Types Packs/Day Years [...]
--- OUTSIDE RECORDS SUMMARY | 2024-11-29 09:39 | XMS_ITS | Encounter Summary ---
Author Organization [employer] ([place], [place], [place], [place]) Address [address] [place] [address] Care Team Providers Care Fabric Worker Name Role Phone Unavailable Primary Care Provider Unavailabl e Encounter Details Date Type Department Care Team (Late st Contact Info) Description 10/26/2020 Transcribed Document [facility] [place] [address] [place] [address] ProviderMariela MD [address] [place] [address] Social History Tobacco Use Types [...] [facility] called and transfer set up to [facility] back to [facility] [address] Nancy Sood RN-PATIENT CARE BEDSIDE NON-EXEMPT - 10/26/2020 14:24 EDT Electronically signed by Maureen Cornejo Conversion Sales Representative M[employer] Cerner at 06/16/2022 8:09 PM CDT documented in this encounter Plan of Treatment Not on file documented as of this encounter Visit Diagnoses Not on filedocumented in this encounter
--- OUTSIDE RECORDS SUMMARY | 2024-11-29 09:39 | XMS_ITS | Encounter Summary ---
Author Organization [employer] ([place], [place], [place], [place]) Address [address] [place] [address] Care Team Providers Care Regional Maintenance Manager Name Role Phone Unavailable Primary Care Provider Unavailabl e Encounter Details Date Type Department Care Team (Late st Contact Info) Description 08/23/2020 Transcribed Document [facility] [place] [facility] [place] [address] ProviderMariela MD [address] [place] [address] Social History Tobacco Use Types Packs/Day [...] EDT Chloraseptic Menthol 1.4% topical spray: 5 [place], Oral, [place], Q2H, PRN for Sore Throat, Routine, Start [...] EDT fluticasone 50 mcg/inh nasal spray: 2 [place], Nostrils Both, [place], BID, PRN for Allergies, Routine, Start 08/20/20 [...] Refill(s) fluticasone 50 mcg/inh nasal spray: 2 [place], Nostrils Both, [place], BID, PRN Allergies, 0 Refill(s) furosemide 40 [...] Oral, Daily fluticasone 0.05% nasal spray 2 [place], Nostrils Both, BID magnesium hydroxide 8% liq [...] Oral, Q4H phenol 1.4% throat spray 5 [place], Oral, Q2H promethazine 25 mg tab 12.5 [...]
--- OUTSIDE RECORDS SUMMARY | 2024-11-29 09:39 | XMS_ITS | Encounter Summary ---
Author Organization [employer] ([place], [place], [place], [place]) Address [address] [place] [address] Care Team Providers Care Senior Landscape Architect Name Role Phone Unavailable Primary Care Provider Unavailabl e Encounter Details Date Type Department Care Team (Late st Contact Info) Description 07/10/2019 Transcribed Document [facility] [place] [facility] [place] [address] ProviderMariela MD [address] [place], [place] [id number] Social History Tobacco Use Types Packs/Day Years [...] Historical ProviderMD - 07/10/2019 2:00 AM CDT Supervisor Paint Department Details Entered On: 07/10/2019 3:21 EDT Performed [...] 07/10/2019 3:21 EDT Electronically signed by Chantal [facility] Conversion Top Waddy Cerner at 06/16/2022 8:10 PM CDT documented in this encounter Plan of Treatment Not on file documented as of this encounter Visit Diagnoses Not on filedocumented in this encounter
--- OUTSIDE RECORDS SUMMARY | 2024-11-29 09:39 | XMS_ITS | Encounter Summary ---
Author Organization [employer] ([place], [place], [place], [place]) Address [address] [place] [address] Care Team Providers Care Coach Tour Driver Name Role Phone Unavailable Primary Care Provider Unavailabl e Encounter Details Date Type Department Care Team (Late st Contact Info) Description 06/26/2019 Transcribed Document [facility] [place] [facility] [place] [facility] [place] [address] ProviderMariela MD [address] [place] [address] Social History Tobacco Use Types Packs/Day [...] Information Comment, OT : Pt [place] [facility] [place] [place] [facility]. L knee replacement with complications and [...] LOF for IADLs, OT : Pt states [place] prior. Lives alone. Ramp into home. Does [...] Yes PATTY OWENS OTR/[place] 06/27/2019 12:24 EDT Correction Goals, OT Bathing LTG Grid [...] PATTY OWENS OTR/Bartolo - 06/27/2019 13:35 EDT Norrie OT Charges OT Ther Activities Ea 15 Min : 2 OT Eval Moderate Complexity : 1 PATTY OWENS OTR/L - 06/27/2019 12:14 EDT documented in this encounter Plan of Treatment Not on file documented as of this encounter Visit Diagnoses Not on filedocumented in this encounter
--- OUTSIDE RECORDS SUMMARY | 2024-11-29 09:39 | XMS_ITS | Encounter Summary ---
Author Organization [employer] ([place], [place], [place], [place]) Address [address] [place] [address] Care Team Providers Care Fans Clerk Name Role Phone Unavailable Primary Care Provider Unavailabl e Encounter Details Date Type Department Care Team (Late st Contact Info) Description 07/19/2019 Transcribed Document [facility] [place] [facility] [place] [facility] [place] [address] ProviderMariela MD [address] [place] [address] Social History Tobacco Use Types Packs/Day [...] 07/19/2019 11:43 AM CDT CareSet Assessment Discharge, [facility] Entered On: 07/19/2019 14:37 EDT Performed On: [...]
--- OUTSIDE RECORDS SUMMARY | 2024-11-29 09:39 | XMS_ITS | Encounter Summary ---
Author Organization [employer] ([place], [place], [place], [place]) Address [address] [place] [address] Care Team Providers Care Engine Maintenance Mechanic Name Role Phone Unavailable Primary Care Provider Unavailabl e Encounter Details Date Type Department Care Team (Late st Contact Info) Description 08/23/2020 Transcribed Document [facility] [place] [address] [place] [address] ProviderMariela MD [address] [place] [address] Social History Tobacco Use [...]
--- OUTSIDE RECORDS SUMMARY | 2024-11-29 09:39 | XMS_ITS | Encounter Summary ---
Author Organization [employer] ([place], [place], [place], [place]) Address [address] [place] [address] Care Team Providers Care Aeronautical Project Engineer Name Role Phone Unavailable Primary Care Provider Unavailabl e Encounter Details Date Type Department Care Team (Late st Contact Info) Description 08/22/[address] [facility] [place] [facility] [place] [address] ProviderMariela MD [address] [place] [address] Social History Tobacco Use Types [...]
--- OUTSIDE RECORDS SUMMARY | 2024-11-29 09:39 | XMS_ITS | Encounter Summary ---
Author Organization [employer] ([place], [place], [place], [place]) Address [address] [place] [address] Care Team Providers Care Manager Delivery Name Role Phone Unavailable Primary Care Provider Unavailabl e Encounter Details Date Type Department Care Team (Late st Contact Info) Description 06/22/2019 Transcribed Document [facility] [place] [facility] [place] [address] ProviderMariela MD [address] [place] [address] Social History Tobacco Use Types Packs/Day [...] 0.9% 50 mL 2 Gram, IV Piggyback, [id number] cyanocobalamin 1,000 mcg tab 5,000 mcg 5 [...] At Bedtime fluticasone 0.05% nasal spray 2 [place], Nostrils Both, BID gabapentin 300 mg cap [...] Topical, Q1H phenol 1.4% throat spray 1 [place], Oral, Q2H potassium chloride 10 mEq 100 [...] % LOW ALYC # 1 K/uL NA [place] Percent Man 6 % HI [place] Percent Man 3 % HI Myelo Percent [...]
--- OUTSIDE RECORDS SUMMARY | 2024-11-29 09:39 | XMS_ITS | Encounter Summary ---
Author Organization [employer] ([place], [place], [place], [place]) Address [address] [place] [address] Care Team Providers Care Tape Deck Installer Name Role Phone Unavailable Primary Care Provider Unavailabl e Encounter Details Date Type Department Care Team (Late st Contact Info) Description 08/13/2020 Transcribed Document [facility] [place] [address] ProviderMariela MD [address] [place] [address] Social History Tobacco Use Types Packs/Day [...] Performed On: 08/13/2020 10:24 EDT by BINDU OMREIRA RN Vital Measurements Temperature Source : Temporal [...] Source : Stated Height Entry Format : [place] Height, Feet : 5 ft(Converted to: 152 cm, 60 Inch) Height, Inches : 0 Inch(Converted to: 0 ft 0 Inch, 0.00 cm) Clinical Height : 152.4 cm Weight Source : Standing scale Weight Entry Format : [place] Clinical Dosing Weight : 90.91 kg Weight, Pounds : 200 lb Body Surface Area (BSA) : 1.87 m2 Body Mass Index : 39.1 kg/m2 (HI) [place] Body Weight : 45 kg BINDU MOREIRA [...] BINDU MOREIRA RN - 08/13/2020 10:24 EDT [place] Suicide Severity Rating Scale (C-SSRS) CSSRS Past [...] Sy Legal Guardian : Gracia Support Person/Patient Master Control Operator : Yes Support Person/Pt Rep Name : Sam Barlow Sy Barlow Contact Password : Keily Support Person/Pt Rep Contact Information : zeinab (Sam) [phone] (Nancy Rust [phone] Want Family/Rep/Phys Notified of Admit : No Emergency Contact #1 : Sam Barlow Emergency Contact #1 Emergency Contact #1 Relationship : son Emergency Contact #2 : - Emergency Contact #2 Phone Number : - Emergency Contact #2 Relationship : - Primary Language : Yakut Preferred Communication Mode : Verbal Communication Barrier : None Cell Coverer Needed : BINDU De León RN - [...] BINDU MOREIRA RN - 08/13/2020 10:24 EDT Electronically signed by Maureen Cornejo Conversion Veterinary Technician Instructor Cerner at 06/16/2022 8:17 PM CDT documented in this encounter Plan of Treatment Not on file documented as of this encounter Visit Diagnoses Not on filedocumented in this encounter
--- OUTSIDE RECORDS SUMMARY | 2024-11-29 09:39 | XMS_ITS | Encounter Summary ---
Author Organization [employer] ([place], [place], [place], [place]) Address [address] [place] [address] Care Team Providers Care Agribusiness Internship Name Role Phone Unavailable Primary Care Provider Unavailabl e Encounter Details Date Type Department Care Team (Late st Contact Info) Description 10/26/2020 Transcribed Document [facility] [place] [facility] [place] [address] ProviderMariela MD [address] [place], [...] 10:28 AM CDT Electronically signed by Chantal [facility] Conversion Packer Operator Automatic Min at 06/16/2022 8:10 PM CDT documented in this encounter Plan of Treatment Not on file documented as of this encounter Visit Diagnoses Not on filedocumented in this encounter
--- OUTSIDE RECORDS SUMMARY | 2024-11-29 09:39 | XMS_ITS | Encounter Summary ---
Author Organization [employer] ([place], [place], [place], [place]) Address [address] [place] [address] Care Team Providers Care Plumber Apprentice Name Role Phone Unavailable Primary Care Provider Unavailabl e Encounter Details Date Type Department Care Team (Late st Contact Info) Description 07/19/2019 Transcribed Document [facility] [place] Medicine [facility] [place] [address] ProviderMariela MD [facility] [place] [address] Social History Tobacco Use Types Packs/Day Years [...] 07/19/2019 11:44 EDT Electronically signed by Chantal [facility] Conversion Spout Tender Cerner at 06/16/2022 8:13 PM CDT documented in this encounter Plan of Treatment Not on file documented as of this encounter Visit Diagnoses Not on filedocumented in this encounter
--- OUTSIDE RECORDS SUMMARY | 2024-11-29 09:39 | XMS_ITS | Encounter Summary ---
Author Organization [employer] ([place], [place], [place], [place]) Address [address] [place] [address] Care Team Providers Care Ethylene Plant Operator Name Role Phone Unavailable Primary Care Provider Unavailabl e Encounter Details Date Type Department Care Team (Late st Contact Info) Description 06/22/2019 Transcribed Document [facility] [place] Family Medicine [address] [place] [address] ProviderMariela MD [address], [place] [id number] Social History Tobacco Use Types Packs/Day Years [...]
--- OUTSIDE RECORDS SUMMARY | 2024-11-29 09:39 | XMS_ITS | Encounter Summary ---
Author Organization [employer] ([place], [place], [place], [place]) Address [address] [place] [address] Care Team Providers Care Supreme Court Justice Name Role Phone Unavailable Primary Care Provider Unavailabl e Encounter Details Date Type Department Care Team (Late st Contact Info) Description 08/24/2020 Transcribed Document [facility] [place] [facility] [place] [address] ProviderMariela MD [facility] [place] [address] Social History Tobacco Use Types [...] Historical ProviderMD - 08/24/2020 2:00 AM CDT Shrimp Picker Details Entered On: 08/24/2020 1:19 EDT Performed [...]
--- OUTSIDE RECORDS SUMMARY | 2024-11-29 09:39 | XMS_ITS | Encounter Summary ---
Author Organization [employer] ([place], [place], [place], [place]) Address [address] [place] [address] Care Team Providers Care [place] Soundings Group Leader Name Role Phone Unavailable Primary Care Provider Unavailabl e Encounter Details Date Type Department Care Team (Late st Contact Info) Description 07/10/2019 Transcribed Document [facility] [place] Medicine [facility] [place] [address] ProviderMariela MD [address] [place] [address] Social History Tobacco Use Types Packs/Day Years [...] had JUST gotten up to chair with BOX LINER assist and did not feel she wanted to put any more pressure on my foot pt c/o R ankle pain, NOTED SIGNIFICANT EDEMA Notification : RN(Marisela)/PTx/OTx CORI NELSON, PT - 07/10/2019 15:28 EDT Electronically signed by Chantal [facility] Conversion Bone Char Kiln Tender Cerner at 06/16/2022 8:08 PM CDT documented in this encounter Plan of Treatment Not on file documented as of this encounter Visit Diagnoses Not on filedocumented in this encounter
--- OUTSIDE RECORDS SUMMARY | 2024-11-29 09:39 | XMS_ITS | Encounter Summary ---
Author Organization [employer] ([place], [place], [place], [place]) Address [address] [place] [address] Care Team Providers Care Legal Stenographer Name Role Phone Unavailable Primary Care Provider Unavailabl e Encounter Details Date Type Department Care Team (Late st Contact Info) Description 06/24/2019 Transcribed Document [facility] [place] [facility] [place] [address] ProviderMariela MD [address] [place] [address] Social History Tobacco Use Types [...] - Medical Enoxaparin 40 mg, SubCutaneous, Inj, [id number], Start 06/24/19 9:00:00 EDT, Stop 06/25/19 9:00:00 [...] PRN Chloraseptic Menthol 1.4% topical spray, 1 [place], Oral, Q2H, PRN cloNIDine, 0.1 mg= 1 [...] Daily fluticasone 50 mcg/inh nasal spray, 2 [place], Nostrils Both, BID, PRN gabapentin, 300 mg= 1 Cap, Oral, At Bedtime lisinopril, 10 mg= 1 Tab, Oral, Daily loratadine, 10 mg= 1 Tab, Oral, Daily Lovenox, 40 mg= 0.4 mL, SubCutaneous, [id number] magnesium sulfate, 2 Gram= 50 mL, IV [...] Lymph # 3.08 K/uL 06/24/2019 03:39 EDT [place] % 7.4 % 06/24/2019 03:39 EDT [place] # 1.17 K/uL (High) 06/24/2019 03:39 EDT [...] 1.1 06/23/2019 14:00 EDT Electronically signed by [facility] Conversion Utility Teller Cerner at 06/16/2022 8:24 PM CDT documented in this encounter Plan of Treatment Not on file documented as of this encounter Visit Diagnoses Not on filedocumented in this encounter
--- OUTSIDE RECORDS SUMMARY | 2024-11-29 09:39 | XMS_ITS | Encounter Summary ---
Author Organization [employer] ([place], [place], [place], [place]) Address [address] [place] [address] Care Team Providers Care Brick Pitcher Name Role Phone Unavailable Primary Care Provider Unavailabl e Encounter Details Date Type Department Care Team (Late st Contact Info) Description 06/22/2019 Transcribed Document [facility] [place] [facility] [place] [address] ProviderMariela MD [address] [place] [address] Social History Tobacco Use Types Packs/Day Years [...]
--- OUTSIDE RECORDS SUMMARY | 2024-11-29 09:39 | XMS_ITS | Encounter Summary ---
Author Organization [employer] ([place], [place], [place], [place]) Address [address] [place] [address] Care Team Providers Care Inspector Balance Wheel Motion Name Role Phone Unavailable Primary Care Provider Unavailabl e Encounter Details Date Type Department Care Team (Late st Contact Info) Description 06/22/2019 Transcribed Document [facility] [place] [facility] [place] [address] ProviderMariela MD [address] [place] [address] Social History Tobacco Use Types Packs/Day Years [...]
--- OUTSIDE RECORDS SUMMARY | 2024-11-29 09:39 | XMS_ITS | Encounter Summary ---
Author Organization [employer] ([place], [place], [place], [place]) Address [address] [place] [address] Care Team Providers Care Industrial Hygiene Manager Name Role Phone Unavailable Primary Care Provider Unavailabl e Encounter Details Date Type Department Care Team (Late st Contact Info) Description 07/19/2019 Transcribed Document [facility] [place] [facility] [place] [address] ProviderMariela MD [address] [place] [address] Social History Tobacco Use Types [...]
--- OUTSIDE RECORDS SUMMARY | 2024-11-29 09:39 | XMS_ITS | Encounter Summary ---
Author Organization [employer] ([place], [place], [place], [place]) Address [address] [place] [address] Care Team Providers Care Verify Rep Name Role Phone Unavailable Primary Care Provider Unavailabl e Encounter Details Date Type Department Care Team (Late st Contact Info) Description 06/25/2019 Transcribed Document [facility] [place] [facility] [place] [address] ProviderMariela MD [address] [place] [id number] Social History Tobacco Use Types Packs/Day Years [...] On: 06/25/2019 9:19 EDT by Halima Tripathi RN-CREDIT RISK MODELERbusiness process modeler Progress Note Discharge Arrangements : Patient Post-Acute [...] Attend Multidisciplinary Rounds? : No Halima Tripathi RN-CREDIT RISK MODELER - 06/25/2019 9:19 EDT Narrative Progress Note Narrative Progress Note : RRS Mod @ 50. Per chart review, no MDR this AM: Patient has thrush and has been placed on diflucan for treatment. PICC line in place to LUE. Awaiting bed at [facility]. CM will continue to follow for discharge planning purposes. Historical Progress Note : Per ID note of 06/22: continue ceftriaxone 2 gm daily and plan on 8 weeks of therapy with PICC line in lifelong oral suppression. Otherwise, patient has been accepted by [facility] and we are awaiting bed availability, likely next week. CM will continue to follow. Halima Tripathi RN-CREDIT RISK MODELER - 06/24/19 13:49:26 RECEIVED CALL FROM ALFONSO WITH [facility]..PATIENT HAS BEEN ACCEPTED AND THEY WILL HAVE A BED SOMETIME NEXT WEEK..CM WILL CONTINUE TO FOLLOW AND INFORM DR DRIVER OF THE ABOVE..DEBORAH BENAVIDEZ RN-Biomedical Engineering Director - 06/23/19 11:45:46 RECEIVED CALL FROM ALFONSO WITH [facility]..PATIENT HAS BEEN ACCEPTED AND THEY WILL HAVE A BED SOMETIME NEXT WEEK..CM WILL CONTINUE TO FOLLOW AND INFORM DR DRIVER OF THE ABOVE..STEPHANIE SPOKE WITH PT AT BEDSIDE AND SHE IS AWARE THAT [facility] HAS STARTED A PRECERT AND HOPEFULLY WILL HAVE BED AVAILABLE ON WEDNESDAY PENDING AUTHORIZATION..DR DRIVER AWARE..DEBORAH BENAVIDEZ RN-Biomedical Engineering Director - 06/23/19 17:11:55 Sent referral to LTACH through [facility]..........MIKE Adam RN-Biomedical Engineering Director - 06/21/19 16:57:54 Was planning for AKA, now patient will undergo a total joint revision with I&D. Will continue to follow.............MIKE Adam RN-Biomedical Engineering Director - 06/21/19 16:36:10 PICC line placed, Per LID, plan for senior living IV abx. Surgery scheduled for today................MIKE Adam RN-Biomedical Engineering Director - 06/21/19 10:06:05 No MDR this AM with provider. Patient with low-grade fever this AM and throughout the night. COTY was rescheduled for 06/20 for this reason. CM will continue to follow. Halima Tripathi RN-CREDIT RISK MODELER - 06/20/19 11:50:51 Patient becoming more agitated and confused, refusing to wear oxygen. Patient now on CPAP, WBC increased, BC x2 positive for group b Strep. Dr Saenz to perform AKA tomorrow morning. Will continue to follow..............MIKE Adam RN-Biomedical Engineering Director - 06/19/19 11:35:19 Halima Tripathi RN-CREDIT RISK MODELER - 06/25/2019 9:19 EDT documented in this encounter Plan of Treatment Not on file documented as of this encounter Visit Diagnoses Not on filedocumented in this encounter
--- OUTSIDE RECORDS SUMMARY | 2024-11-29 09:39 | XMS_ITS | Encounter Summary ---
Author Organization [employer] ([place], [place], [place], [place]) Address [address] [address] Care Team Providers Care Director Geophysical Laboratory Name Role Phone Unavailable Primary Care Provider Unavailabl e Encounter Details Date Type Department Care Team (Late st Contact Info) Description 07/19/2019 Transcribed Document [facility] [place] [facility] [place] [address] ProviderMariela MD [address] [place] [address] Social History Tobacco Use [...] other medicines or supplements? Many prescription and ihbl-scy-rzwmvjp medicines can interfere with warfarin. Talk with your health care provider or your pharmacist before starting or stopping any new medicines. This includes farz-fau-nfgatix vitamins, dietary supplements, herbal medicines, and pain medicines. Your warfarin dosage may need to be adjusted. ??? Some common hson-bap-wnxltvu medicines that may increase the risk of [...] that you work with a diet and director of food and nutrition (dietitian). ??? Vitamin K decreases the effect [...] cooked. ??? Collards, raw or cooked. ??? [place] Islander chard, raw or cooked. ??? Mustard greens, raw or cooked. ??? Turnip greens, raw or cooked. ??? Parsley, raw. ??? Broccoli, cooked. ??? Noodles, eggs, and spinach, enriched. ??? Summit sprouts, raw or cooked. ??? Beet greens, [...] diet. ??? You start or stop any yqbo-hmf-ofbepua medicine, prescription medicine, or dietary supplement. ??? [...] 02/15/2006 Document Revised: 06/21/2017 Document Reviewed: 05/13/2016 [employer] Interactive Patient Education ? 2019 [employer] Hypertension, Adult High blood pressure (hypertension) [...] provider. This is important. Medicines ??? Take eoxp-wpf-jwzejzv and prescription medicines only as told by [...] 02/15/2006 Document Revised: 10/26/2018 Document Reviewed: 10/26/2018 [employer] Interactive Patient Education ? 2019 [employer] How to Use a Knee Immobilizer [...]
--- OUTSIDE RECORDS SUMMARY | 2024-11-29 09:39 | XMS_ITS | Encounter Summary ---
Author Organization [employer] ([place], [place], [place], [place]) Address [address] [place] [address] Care Team Providers Care Care Transition Manager Name Role Phone Unavailable Primary Care Provider Unavailabl e Encounter Details Date Type Department Care Team (Late st Contact Info) Description 06/22/2019 Transcribed Document [facility] [place] [facility] [place] [address] ProviderMariela MD [address] [place] [address] Social History Tobacco Use Types Packs/Day [...] KACIE MAJOR, PT - 06/25/2019 13:15 EDT Half-Way Goals Other PT LTG Grid Goal #1 [...] it was agreed to not sit pt [facility] at this time. c/o velcro rubbing [...]
--- OUTSIDE RECORDS SUMMARY | 2024-11-29 09:39 | XMS_ITS | Encounter Summary ---
Author Organization [employer] ([place], [place], [place], [place]) Address [address] [place] [address] Care Team Providers Care Drywall Carrier Name Role Phone Unavailable Primary Care Provider Unavailabl e Encounter Details Date Type Department Care Team (Late st Contact Info) Description 10/26/[address] [facility] [place] Family Medicine Pending [facility] to [facility] [address] ProviderMariela MD [place] [address] Social History Tobacco Use [...] & time 10/26/2020 01:45:00, Voice recognition / brass and wind instrument repairer technology used for some documentation in this [...] Source Stated Height Entry Format Ceci Height/Length, BELARUSIAN (ft) 5 ft Height/Length BELARUSIAN 0 Inch CLINICALHEIGHT 152.4 cm [place] Body Weight 49.16 kg Weight Source, ED Critical estimated dosing weight Weight Entry Format [place] Weight French lb 200 lb CLINICALWEIGHT 90.91 kg Body [...] call, recommends Dr. Butts is on[facility]. Discussed case he recommends [...] a primary care provider the patient resource nursing scheduler can assist you with establishing care and scheduling follow-up. The Patient Resource Roping Machine Tender can be contacted at .; ; NIMO [...]
--- OUTSIDE RECORDS SUMMARY | 2024-11-29 09:39 | XMS_ITS | Encounter Summary ---
Author Organization [employer] ([place], [place], [place], [place]) Address [address] [place] [address] Care Team Providers Care Marketing Services Rep Name Role Phone Unavailable Primary Care Provider Unavailabl e Encounter Details Date Type Department Care Team (Late st Contact Info) Description 08/23/2020 Transcribed Document [facility] [place] [facility] [place] [address] ProviderMariela MD [facility] [place] [address] Social History Tobacco Use Types [...] Referral(s): Service: Organization: Business Address: Phone Number: Hr Consultant Care [facility] [address], [address] Discharge Options Discussed with Patient : Discharge transportation, DME, intermodal dispatcher rehabilitation Barriers to Discharge Identified : Clinical Condition of Patient Barriers to Discharge Unresolved : Clinical Condition of Patient Designation of Choice Signed : No Patient Offered Choice/Affiliations Explained : Yes List/Info Provided Pt/Fam/Support Person : Durable medical equipment, custodial facilities Were Referrals Sent to Post Acute [...] to be discharged yet. Pending preautorization at [facility]. Called and spoke with Richard and he [...] wants to go to Rehab and choose [facility] or [place]. Referral faxed via Mike and brooke notified. 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 DME: patient has a wc, showerchair and a walker at home. CM: jevon jon will continue to follow patient TRANS: will need an [facility] there. ADALBERTO BEE RN - 08/21/20 14:06:04 ADALBERTO BEE RN - 08/23/2020 14:59 EDT documented in this encounter Plan of Treatment Not on file documented as of this encounter Visit Diagnoses Not on filedocumented in this encounter
--- OUTSIDE RECORDS SUMMARY | 2024-11-29 09:39 | XMS_ITS | Encounter Summary ---
Author Organization [employer] ([place], [place], [place], [place]) Address [address] [place] [address] Care Team Providers Care Cause Analyst Name Role Phone Unavailable Primary Care Provider Unavailabl e Encounter Details Date Type Department Care Team (Late st Contact Info) Description 08/27/2018 Transcribed Document [facility] [place] [facility] [place] [address] ProviderMariela MD [address] [place] [address] Social History Tobacco Use Types Packs/Day Years [...] SWATI TOLEDO RN - 08/27/2018 18:20 EDT Electronically signed by Maureen Cornejo Conversion Senior Lead Software Engineer Cerbryce at 06/16/2022 8:05 PM CDT documented in this encounter Plan of Treatment Not on file documented as of this encounter Visit Diagnoses Not on filedocumented in this encounter
--- OUTSIDE RECORDS SUMMARY | 2024-11-29 09:39 | XMS_ITS | Encounter Summary ---
Author Organization [employer] ([place], [place], [place], [place]) Address [address] [place] [address] Care Team Providers Care Policy Intern Name Role Phone Unavailable Primary Care Provider Unavailabl e Encounter Details Date Type Department Care Team (Late st Contact Info) Description 10/26/2020 Transcribed Document [facility] [place] Family Medicine [facility] [place] [address] ProviderMariela MD [facility] [place] [address] Social History Tobacco Use Types [...] CARE BEDSIDE NON-EXEMPT - 10/26/2020 7:56 EDT Electronically signed by Maureen Cornejo Conversion Credit Assessment Analyst Titusner at 06/16/2022 8:10 PM CDT documented in this encounter Plan of Treatment Not on file documented as of this encounter Visit Diagnoses Not on filedocumented in this encounter
--- OUTSIDE RECORDS SUMMARY | 2024-11-29 09:39 | XMS_ITS | Encounter Summary ---
Author Organization [employer] ([place], [place], [place], [place]) Address [address] [place] [address] Care Team Providers Care Service Crew Supervisor Name Role Phone Unavailable Primary Care Provider Unavailabl e Encounter Details Date Type Department Care Team (Late st Contact Info) Description 08/13/2020 Transcribed Document [facility] [place] [facility] [place] [address] ProviderMariela MD [address] [place] [address] Social History Tobacco Use Types Packs/Day [...] Knee Pain Primary Care Provider NILA CHO, [facility] History of Present Illness This patient is a pleasant 80 yo WF who presents with right knee pain. 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 She subsequently sustained a fall and noted right knee pain. 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 She has used a wheelchair as an [...] Daily fluticasone 50 mcg/inh nasal spray 2 [place], PRN, Nostrils Both, BID furosemide 40 mg [...] 26.8 Fructosamine- 186 Electronically signed by Chantal, [facility] Conversion Cyber Crime Investigator Cerner at 06/16/2022 8:08 PM CDT documented in this encounter Plan of Treatment Not on file documented as of this encounter Visit Diagnoses Not on filedocumented in this encounter
--- OUTSIDE RECORDS SUMMARY | 2024-11-29 09:39 | XMS_ITS | Encounter Summary ---
Author Organization [employer] ([place], [place], [place], [place]) Address [address] [place] [address] Care Team Providers Care Traveling Freight Agent Name Role Phone Unavailable Primary Care Provider Unavailabl e Encounter Details Date Type Department Care Team (Late st Contact Info) Description 08/28/2020 Transcribed Document [facility] [place] [facility] [place] [address] ProviderMariela MD [facility] [place] [address] Social History Tobacco Use [...] Historical ProviderMD - 08/28/2020 2:00 AM CDT Door To Door Sales Representative Details Entered On: 08/28/2020 2:20 EDT Performed [...]
--- OUTSIDE RECORDS SUMMARY | 2024-11-29 09:39 | XMS_ITS | Encounter Summary ---
Author Organization [employer] ([place], [place], [place], [place]) Address [address] [place] [address] Care Team Providers Care Proofer Name Role Phone Unavailable Primary Care Provider Unavailabl e Encounter Details Date Type Department Care Team (Late st Contact Info) Description 08/23/2020 Transcribed Document [facility] [place] [address] [place] [address] ProviderMariela MD [address] [place], [place] [id number] Social History Tobacco Use Types Packs/Day Years [...]
--- OUTSIDE RECORDS SUMMARY | 2024-11-29 09:39 | XMS_ITS | Encounter Summary ---
Author Organization [employer] ([place], [place], [place], [place]) Address [address] [place] [address] Care Team Providers Care Search Coordinator Name Role Phone Unavailable Primary Care Provider Unavailabl e Encounter Details Date Type Department Care Team (Late st Contact Info) Description 07/09/2019 Transcribed Document [facility] [place] Family Medicine [address] [place] [address] ProviderMariela MD [address] [place], [place] [id number] Social History Tobacco Use Types Packs/Day Years [...]
--- OUTSIDE RECORDS SUMMARY | 2024-11-29 09:39 | XMS_ITS | Encounter Summary ---
Author Organization [employer] ([place], [place], [place], [place]) Address [address] [place] [address] Care Team Providers Care Tip Printer Name Role Phone Unavailable Primary Care Provider Unavailabl e Encounter Details Date Type Department Care Team (Late st Contact Info) Description 08/23/2020 Transcribed Document [facility] [place] [facility] [place] [address] ProviderMariela MD [address] [place] [address] Social History Tobacco Use Types [...] Aspir 81 Oral, Daily [ x ] Walker filter 08/20 Consult note History :Walker filter. Present Treatments Results and Location in Medical Record [ x ] Monitoring post op 08/20 monitor pt on postop med surg floor [ x ] ASA order MD orders 08/20 MAR Aspirin 81mg, Oral BID CDS/Olericulture Professor Signature: Charo Blancas ____ Phone #: [phone] Date/Time: 08/23/2020 ____ This is a permanent part of the Medical Record Q6 2019 [facility] Updated: documented in this encounter Plan of Treatment Not on file documented as of this encounter Visit Diagnoses Not on filedocumented in this encounter
--- OUTSIDE RECORDS SUMMARY | 2024-11-29 09:39 | XMS_ITS | Encounter Summary ---
Author Organization [employer] ([place], [place], [place], [place]) Address [address] [place] [address] Care Team Providers Care Securities Supervisor Name Role Phone Unavailable Primary Care Provider Unavailabl e Encounter Details Date Type Department Care Team (Late st Contact Info) Description 08/26/2018 Transcribed Document [facility] [place] Family [place] [address] [place] [address] ProviderMariela MD [address] [place], [place] [id number] Social History Tobacco Use Types Packs/Day Years [...]
--- OUTSIDE RECORDS SUMMARY | 2024-11-29 09:39 | XMS_ITS | Encounter Summary ---
Author Organization [employer] ([place], [place], [place], [place]) Address [address] [place] [address] Care Team Providers Care Head Waiter/Waitress Banquet Name Role Phone Unavailable Primary Care Provider Unavailabl e Encounter Details Date Type Department Care Team (Late st Contact Info) Description 06/25/2019 Transcribed Document [facility] [place] [facility] [place] [address] ProviderMariela MD [address] [place] [phone] Social History Tobacco Use Types Packs/Day Years [...] Electronically signed by Maureen Cornejo Conversion Medical Education Specialist Cerner at 06/16/2022 8:06 PM CDT documented in this encounter Plan of Treatment Not on file documented as of this encounter Visit Diagnoses Not on filedocumented in this encounter
--- OUTSIDE RECORDS SUMMARY | 2024-11-29 09:39 | XMS_ITS | Encounter Summary ---
Author Organization [employer] ([place], [place], [place], [place]) Address [address] [place] [address] Care Team Providers Care Director Religious Education Name Role Phone Unavailable Primary Care Provider Unavailabl e Encounter Details Date Type Department Care Team (Late st Contact Info) Description 06/24/2019 Transcribed Document [facility] [place] [facility] [place] [address] ProviderMariela MD [address] [place] [address] Social History Tobacco Use Types Packs/Day [...] 0.9% 50 mL 2 Gram, IV Piggyback, [id number] cyanocobalamin 1,000 mcg tab 5,000 mcg 5 Tab, Oral, Daily docusate sodium 100 mg cap 100 mg 1 Cap, Oral, BID DULoxetine DR 60 mg cap 60 mg 1 Cap, Oral, Daily enoxaparin 40 mg/0.4 mL inj 40 mg 0.4 mL, SubCutaneous, [id number] gabapentin 300 mg cap 300 mg 1 [...] At Bedtime fluticasone 0.05% nasal spray 2 [place], Nostrils Both, BID LORazepam 2 mg/mL inj [...] Topical, Q1H phenol 1.4% throat spray 1 [place], Oral, Q2H potassium chloride 10 mEq 100 [...] % 19.4 % Lymph # 3.08 K/uL [place] % 7.4 % [place] # 1.17 K/uL [place] Eos % 2.9 [...] % LOW ALYC # 3 K/uL NA [place] Percent Man 6 % HI Myelo Percent [...]
--- OUTSIDE RECORDS SUMMARY | 2024-11-29 09:39 | XMS_ITS | Encounter Summary ---
Author Organization [employer] ([place], [place], [place], [place]) Address [address] [place] [address] Care Team Providers Care Supervisor Keymodule Assembly Name Role Phone Unavailable Primary Care Provider Unavailabl e Encounter Details Date Type Department Care Team (Late st Contact Info) Description 08/26/2018 Transcribed Document [facility] [place] [facility] [place] [address] ProviderMariela MD [address] [place] [address] Social History Tobacco Use Types Packs/Day [...]
--- OUTSIDE RECORDS SUMMARY | 2024-11-29 09:39 | XMS_ITS | Encounter Summary ---
Author Organization [employer] ([place], [place], [place], [place]) Address [address] [place] [address] Care Team Providers Care Mixer Runner Name Role Phone Unavailable Primary Care Provider Unavailabl e Encounter Details Date Type Department Care Team (Late st Contact Info) Description 07/19/2019 Transcribed Document [facility] Family Medicine [facility] [place] [address] ProviderMariela MD [address] [place] [address] Social History Tobacco Use Types Packs/Day Years [...] On: 07/19/2019 14:14 EDT by Marisela Rangel english language arts teacher Documentation Discharge Date/Time : 07/19/2019 14:14 EDT Patient Disposition, General : Discharge Discharge To : Assisted living Education Comment : needs reminders and reassurance Marisela Rangel RN - 07/19/2019 14:14 EDT documented in this encounter Plan of Treatment Not on file documented as of this encounter Visit Diagnoses Not on filedocumented in this encounter
--- OUTSIDE RECORDS SUMMARY | 2024-11-29 09:39 | XMS_ITS | Encounter Summary ---
Author Organization [employer] ([place], [place], [place], [place]) Address [address] [place] [address] Care Team Providers Care Asset Analyst Name Role Phone Unavailable Primary Care Provider Unavailabl e Encounter Details Date Type Department Care Team (Late st Contact Info) Description 08/22/2020 Transcribed Document [facility] [place] [facility] [place] [address] ProviderMariela MD [facility] [place] [address] Social History Tobacco Use Types [...]
--- OUTSIDE RECORDS SUMMARY | 2024-11-29 09:39 | XMS_ITS | Encounter Summary ---
Author Organization [employer] ([place], [place], [place], [place]) Address [address] [place] [address] Care Team Providers Care Accounting Policy Consultant Name Role Phone Unavailable Primary Care Provider Unavailabl e Encounter Details Date Type Department Care Team (Late st Contact Info) Description 07/09/2019 Transcribed Document [facility] [place] [facility] [place] [address] ProviderMariela MD [address] [place] [phone] Social History Tobacco Use Types Packs/Day Years [...] 0.9% 50 mL 2 Gram, IV Piggyback, [id number] cyanocobalamin 1,000 mcg tab 5,000 mcg 5 [...] Oral, Q4H fluticasone 0.05% nasal spray 2 [place], Nostrils Both, BID magnesium hydroxide 8% [...]
--- OUTSIDE RECORDS SUMMARY | 2024-11-29 09:39 | XMS_ITS | Encounter Summary ---
Author Organization [employer] ([place], [place], [place], [place]) Address [address] [place] [address] Care Team Providers Care Route Clerk Name Role Phone Unavailable Primary Care Provider Unavailabl e Encounter Details Date Type Department Care Team (Late st Contact Info) Description 06/24/2019 Transcribed Document [facility] [place] [address] [place] [address] ProviderMariela MD [address] [place], [place] [phone] Social History Tobacco Use Types Packs/Day Years [...] All Active Orders Reviewed : Yes OZZIE MCIHELLE LPN - 06/24/2019 18:49 EDT Electronically signed by Maureen Cornejo Conversion English Composition Instructor Min at 06/16/2022 8:23 PM CDT documented in this encounter Plan of Treatment Not on file documented as of this encounter Visit Diagnoses Not on filedocumented in this encounter
--- OUTSIDE RECORDS SUMMARY | 2024-11-29 09:39 | XMS_ITS | Encounter Summary ---
Author Organization [employer] ([place], [place], [place], [place]) Address [address] [place] [address] Care Team Providers Care Supervisor Of Officials Name Role Phone Unavailable Primary Care Provider Unavailabl e Encounter Details Date Type Department Care Team (Late st Contact Info) Description 06/22/2019 Transcribed Document [facility] [place] [facility] [place] [address] ProviderMariela MD [address] [place] [address] Social History Tobacco Use Types Packs/Day Years [...] Historical ProviderMD - 06/22/2019 2:00 AM CDT Bonding And Composite Fabricator Details Entered On: 06/22/2019 1:24 EDT Performed [...]
--- OUTSIDE RECORDS SUMMARY | 2024-11-29 09:39 | XMS_ITS | Encounter Summary ---
Author Organization [id number] ([place], [place], [place], [place]) Address [address] [place] [address] Care Team Providers Care Writing Tutor Name Role Phone Unavailable Primary Care Provider Unavailabl e Encounter Details Date Type Department Care Team (Late st Contact Info) Description 06/22/2019 Transcribed Document [facility] [place] [facility] [place] [address] ProviderMariela MD [address] [place] [phone] Social History Tobacco Use Types Packs/Day Years [...]
--- OUTSIDE RECORDS SUMMARY | 2024-11-29 09:40 | XMS_ITS | Encounter Summary ---
Author Organization [employer] ([place], [place], [place], [place]) Address [address] [place] [address] Care Team Providers Care Machine Stapler Name Role Phone Unavailable Primary Care Provider Unavailabl e Encounter Details Date Type Department Care Team (Late st Contact Info) Description 08/23/2020 Transcribed Document [facility] [place] [facility] [place] [address] ProviderMariela MD [address] [place] [address] Social History Tobacco Use Types [...]
--- OUTSIDE RECORDS SUMMARY | 2024-11-29 09:40 | XMS_ITS | Encounter Summary ---
Author Organization [employer] ([place], [place], [place], [place]) Address [address] [place] [address] Care Team Providers Care Wild Animal Caretaker Name Role Phone Unavailable Primary Care Provider Unavailabl e Encounter Details Date Type Department Care Team (Late st Contact Info) Description 08/19/2020 Transcribed Document [facility] [place] [facility] [place] [address] ProviderMariela MD [address] [place] [address] Social History Tobacco Use Types [...] Policy Numbers : Insurance 1 Health Plan: [facility] MEDICARE ADVANTAGE Policy Number: [id number] Authorization Number: [id number] Insurance Primary Name : [employer] MEDICARE ADVANTAGE Policy Number: [id number] Authorization Status-Primary : Admit approved Reference Number-Primary : [id number] Authorization Number-Primary : [id number] Number of Days Authorized-Primary : 0 Day(s) Authorized Service Begin Date-Primary : 08/20/2020 EDT Authorized Service End Date-Primary : 08/20/2020 EDT Authorization Comments-Primary : Note on [facility] website:Patient was initially scheduled for Right [...] surgery. Historical Authorization Comments-Primary : Comment 1: [facility] Medicare approved per website for 1 day (TIESHA AQUINO RN-Utilization Review 08/19/2020 15:14) TIESHA AQUINO RN-Utilization Review - 08/19/2020 15:20 EDT Electronically signed by Maureen Cornejo Conversion Airconditioning Plant Operator Cerner at 06/16/2022 8:02 PM CDT documented in this encounter Plan of Treatment Not on file documented as of this encounter Visit Diagnoses Not on filedocumented in this encounter
--- OUTSIDE RECORDS SUMMARY | 2024-11-29 09:40 | XMS_ITS | Encounter Summary ---
Author Organization [employer] ([place], [place], [place], [place]) Address [address] [place] [address] Care Team Providers Care Sales Effectiveness Manager Name Role Phone Unavailable Primary Care Provider Unavailabl e Encounter Details Date Type Department Care Team (Late st Contact Info) Description 07/19/2019 Transcribed Document [facility] [place] [facility] [place] [address] ProviderMariela MD [address] [place] [address] Social History Tobacco Use Types Packs/Day [...]
--- OUTSIDE RECORDS SUMMARY | 2024-11-29 09:40 | XMS_ITS | Encounter Summary ---
Author Organization [employer] ([place], [place], [place], [place]) Address [address] [place] [address] Care Team Providers Care Woods Boss Name Role Phone Unavailable Primary Care Provider Unavailabl e Encounter Details Date Type Department Care Team (Late st Contact Info) Description 08/23/2020 Transcribed Document [facility] [place] [facility] [place] [address] ProviderMariela MD [address] [place] [address] Social History Tobacco Use Types [...] Historical ProviderMD - 08/23/2020 2:00 AM CDT Convention Worker Details Entered On: 08/23/2020 0:04 EDT Performed [...]
--- OUTSIDE RECORDS SUMMARY | 2024-11-29 09:40 | XMS_ITS | Encounter Summary ---
Author Organization [employer] ([place], [place], [place], [place]) Address [address] [place] [address] Care Team Providers Care Blade Groover Name Role Phone Unavailable Primary Care Provider Unavailabl e Encounter Details Date Type Department Care Team (Late st Contact Info) Description 07/10/2019 Transcribed Document [facility] [place] [address] [place] [address] ProviderMariela MD [address] [place] [address] Social History Tobacco Use Types [...] Daniella Hunt Dietitian - 07/10/2019 12:45 EDT Electronically signed by Maureen Cornejo Conversion Superintendent Horticulture Cerner at 06/16/2022 8:22 PM CDT documented in this encounter Plan of Treatment Not on file documented as of this encounter Visit Diagnoses Not on filedocumented in this encounter
--- OUTSIDE RECORDS SUMMARY | 2024-11-29 09:40 | XMS_ITS | Encounter Summary ---
Author Organization [employer] ([place], [place], [place], [place]) Address [address] [place] [address] Care Team Providers Care Farm Equipment Technician Name Role Phone Unavailable Primary Care Provider Unavailabl e Encounter Details Date Type Department Care Team (Late st Contact Info) Description 07/10/2019 Transcribed Document [facility] [place] [facility] [place] [address] ProviderMariela MD [address] [place] [address] Social History Tobacco Use Types Packs/Day Years [...] Conversion Note - Mariela ProviderMD - 07/10/2019 2:28 PM CDT Pain [...]
--- OUTSIDE RECORDS SUMMARY | 2024-11-29 09:40 | XMS_ITS | Encounter Summary ---
Author Organization [employer] ([place], [place], [place], [place]) Address [address] [place] [address] Care Team Providers Care Freight Claim Investigator Name Role Phone Unavailable Primary Care Provider Unavailabl e Encounter Details Date Type Department Care Team (Late st Contact Info) Description 06/26/2019 Transcribed Document [facility] [place] [facility] [address] ProviderMariela MD [address] [place] [address] Social History Tobacco Use Types Packs/Day [...]
--- OUTSIDE RECORDS SUMMARY | 2024-11-29 09:40 | XMS_ITS | Encounter Summary ---
Author Organization [employer] ([place], [place], [place], [place]) Address [address] [place] [address] Care Team Providers Care Medical Detailist Name Role Phone Unavailable Primary Care Provider Unavailabl e Encounter Details Date Type Department Care Team (Late st Contact Info) Description 06/26/2019 Transcribed Document [facility] [place] [facility] [address] ProviderMariela MD [place] [address] Social History Tobacco Use Types [...] moderate risk Nutrition Care Level : Moderate Marilee, Daniella, Dietitian - 06/27/2019 13:50 EDT documented in this encounter Plan of Treatment Not on file documented as of this encounter Visit Diagnoses Not on filedocumented in this encounter
--- OUTSIDE RECORDS SUMMARY | 2024-11-29 09:40 | XMS_ITS | Encounter Summary ---
Author Organization [employer] ([place], [place], [place], [place]) Address [address] [place] [address] Care Team Providers Care Matchbook Assembler Name Role Phone Unavailable Primary Care Provider Unavailabl e Encounter Details Date Type Department Care Team (Late st Contact Info) Description 06/26/2019 Transcribed Document [facility] [place] [address] ProviderMariela MD [address] [place] [address] Social History Tobacco Use Types Packs/Day [...] PT Evaluation and Treatment Ordered By: DONNA DRIEVR MD-INT Active Diagnoses : No Qualifying Diagnoses [...] Impaired Left UE Strength : Impaired Hand Erp Consultant Test : bilaterally 4/5 Upper Extremity Comment [...] OSKAR MARTÍNEZ, PT - 06/27/2019 11:41 EDT Alf Goals Mobility/Bed Mobility LTG PT Grid Goal [...] 06/27/2019 11:41 EDT Electronically signed by Chantal [facility] Conversion Manager Dish Cerner at 06/16/2022 8:02 PM CDT documented in this encounter Plan of Treatment Not on file documented as of this encounter Visit Diagnoses Not on filedocumented in this encounter
--- OUTSIDE RECORDS SUMMARY | 2024-11-29 09:40 | XMS_ITS | Encounter Summary ---
Author Organization [employer] ([place], [place], [place], [place]) Address [address] [place] [address] Care Team Providers Care Tube Tester Name Role Phone Unavailable Primary Care Provider Unavailabl e Encounter Details Date Type Department Care Team (Late st Contact Info) Description 08/23/2020 Transcribed Document [facility] [place] [facility] [place] [address] ProviderMariela MD [address] [place] [address] Social History Tobacco Use Types Packs/Day [...] Scale Pain Improved by Intervention : Yes Ranya Carrizales Rn - 08/23/2020 23:35 EDT Pain [...]
--- OUTSIDE RECORDS SUMMARY | 2024-11-29 09:40 | XMS_ITS | Encounter Summary ---
Author Organization [employer] ([place], [place], [place], [place]) Address [address] [place] [address] Care Team Providers Care Ways Operator Name Role Phone Unavailable Primary Care Provider Unavailabl e Encounter Details Date Type Department Care Team (Late st Contact Info) Description 07/10/2019 Transcribed Document [facility] [place] Family Medicine [address] [place] [address] ProviderMariela MD [address] [place] [address] Social History Tobacco Use Types [...] 07/10/2019 3:21 EDT Electronically signed by Chantal [facility] Conversion Lumber Piler Min at 06/16/2022 8:22 PM CDT documented in this encounter Plan of Treatment Not on file documented as of this encounter Visit Diagnoses Not on filedocumented in this encounter
--- OUTSIDE RECORDS SUMMARY | 2024-11-29 09:40 | XMS_ITS | Encounter Summary ---
Author Organization [employer] ([place], [place], [place], [place]) Address [address] [place] [address] Care Team Providers Care Customs Consultant Name Role Phone Unavailable Primary Care Provider Unavailabl e Encounter Details Date Type Department Care Team (Late st Contact Info) Description 08/23/2020 Transcribed Document [facility] [place] [facility] [place] [address] ProviderMariela MD [address] [place] [address] Social History Tobacco Use Types [...] Monitoring H&H 08/22 PN Close monitoring H&H. CDS/Senior Ecologist Signature: Charo Blancas Phone #: [phone] Date/Time: 08/23/2020 ____ This is a permanent part of the Medical Record Q4 2019 [facility] Updated: documented in this encounter Plan of Treatment Not on file documented as of this encounter Visit Diagnoses Not on filedocumented in this encounter
--- OUTSIDE RECORDS SUMMARY | 2024-11-29 09:40 | XMS_ITS | Encounter Summary ---
Author Organization [employer] ([place], [place], [place], [place]) Address [address] [place] [address] Care Team Providers Care Department Sales Manager Name Role Phone Unavailable Primary Care Provider Unavailabl e Encounter Details Date Type Department Care Team (Late st Contact Info) Description 08/24/2020 Transcribed Document [facility] [place] [facility] [place] [address] ProviderMariela MD [facility] [place] [address] Social History Tobacco Use Types [...] form. Electronically signed by Maureen Cornejo Conversion Irrigation Equipment Mechanic Cerner at 06/16/2022 8:09 PM CDT documented in this encounter Plan of Treatment Not on file documented as of this encounter Visit Diagnoses Not on filedocumented in this encounter
--- OUTSIDE RECORDS SUMMARY | 2024-11-29 09:40 | XMS_ITS | Encounter Summary ---
Author Organization [employer] ([place], [place], [place], [place]) Address [address] [place] [address] Care Team Providers Care Levers Lace Machine Operator Name Role Phone Unavailable Primary Care Provider Unavailabl e Encounter Details Date Type Department Care Team (Late st Contact Info) Description 08/28/[address] [facility] [place] [facility] [place] [address] ProviderMariela MD [address] [place] [address] Social History Tobacco Use Types Packs/Day Years [...] Historical ProviderMD - 08/28/2018 2:00 AM CDT Solid Waste Truck Driver Details Entered On: 08/28/2018 4:53 EDT Performed [...] 08/28/2018 4:53 EDT Electronically signed by Chantal [facility] Conversion Inspector Of Weights And Measures Cerner at 06/16/2022 8:24 PM CDT documented in this encounter Plan of Treatment Not on file documented as of this encounter Visit Diagnoses Not on filedocumented in this encounter
--- OUTSIDE RECORDS SUMMARY | 2024-11-29 09:40 | XMS_ITS | Encounter Summary ---
Author Organization [employer] ([place], [place], [place], [place]) Address [address] [place] [address] Care Team Providers Care Diamond Driller Name Role Phone Unavailable Primary Care Provider Unavailabl e Encounter Details Date Type Department Care Team (Late st Contact Info) Description 07/19/2019 Transcribed Document [facility] [place] [address] [place] [address] ProviderMariela MD [address] [place] [address] Social History Tobacco Use [...]
--- OUTSIDE RECORDS SUMMARY | 2024-11-29 09:40 | XMS_ITS | Encounter Summary ---
Author Organization [employer] ([place], [place], [place], [place]) Address [address] [place] [address] Care Team Providers Care Napper Runner Name Role Phone Unavailable Primary Care Provider Unavailabl e Encounter Details Date Type Department Care Team (Late st Contact Info) Description 06/26/2019 Transcribed Document [facility] [place] [facility] [place] [address] ProviderMariela MD [address] [place] [address] Social History Tobacco Use Types Packs/Day Years [...]
--- OUTSIDE RECORDS SUMMARY | 2024-11-29 09:40 | XMS_ITS | Encounter Summary ---
Author Organization [employer] ([place], [place], [place], [place]) Address [address] [place] [address] Care Team Providers Care Facilities Flight Check Pilot Name Role Phone Unavailable Primary Care Provider Unavailabl e Encounter Details Date Type Department Care Team (Late st Contact Info) Description 06/22/2019 Transcribed Document [facility] [place] [facility] [place] [address] ProviderMariela MD [address] [place] [phone] Social History Tobacco Use Types Packs/Day Years [...]
--- OUTSIDE RECORDS SUMMARY | 2024-11-29 09:40 | XMS_ITS | Encounter Summary ---
Author Organization [employer] ([place], [place], [place], [place]) Address [address] [place] [address] Care Team Providers Care Insulation Engineman Name Role Phone Unavailable Primary Care Provider Unavailabl e Encounter Details Date Type Department Care Team (Late st Contact Info) Description 07/10/2019 Transcribed Document [facility] [place] [facility] [place] [address] ProviderMariela MD [address] [place] [id number] Social History Tobacco Use Types Packs/Day Years [...] 0.9% 50 mL 2 Gram, IV Piggyback, [id number] cyanocobalamin 1,000 mcg tab 5,000 mcg 5 [...] Oral, Q4H fluticasone 0.05% nasal spray 2 [place], Nostrils Both, BID magnesium hydroxide 8% [...] % 22.4 % Lymph # 1.61 x10(3)/uL [place] % 12.7 % [place] # 0.91 K/uL Eos % 6.3 % [...]
--- OUTSIDE RECORDS SUMMARY | 2024-11-29 09:40 | XMS_ITS | Encounter Summary ---
Author Organization [employer] ([place], [place], [place], [place]) Address [address] [place] [address] Care Team Providers Care Sewing Pattern Layout Technician Name Role Phone Unavailable Primary Care Provider Unavailabl e Encounter Details Date Type Department Care Team (Late st Contact Info) Description 06/25/2019 Transcribed Document [facility] [place] Medicine [facility] [place] [address] ProviderMariela MD [address] [place] [address] Social History Tobacco Use Types Packs/Day [...] PRN Chloraseptic Menthol 1.4% topical spray, 1 Neche, Oral, Q2H, PRN cloNIDine, 0.1 mg= 1 [...] Daily fluticasone 50 mcg/inh nasal spray, 2 Neche, Nostrils Both, BID, PRN gabapentin, 300 mg= [...] Level 7.3 mg/dL (Low) 06/25/2019 03:29 EDT Electronically signed by Maureen Cornejo Conversion Customer Service Attendant Titusner at 06/16/2022 8:13 PM CDT documented in this encounter Plan of Treatment Not on file documented as of this encounter Visit Diagnoses Not on filedocumented in this encounter
--- OUTSIDE RECORDS SUMMARY | 2024-11-29 09:40 | XMS_ITS | Encounter Summary ---
Author Organization [employer] ([place], [place], [place], [place]) Address [address] [place] [address] Care Team Providers Care Plc Engineer Name Role Phone Unavailable Primary Care Provider Unavailabl e Encounter Details Date Type Department Care Team (Late st Contact Info) Description 08/23/2020 Transcribed Document [facility] [place] Family Medicine [address] [place] [address] ProviderMariela MD [address] [place] [address] Social History Tobacco Use Types [...] 08/23/2020 18:54 EDT Electronically signed by Chantal [facility] Conversion Senior Quality Analyst Min at 06/16/2022 8:26 PM CDT documented in this encounter Plan of Treatment Not on file documented as of this encounter Visit Diagnoses Not on filedocumented in this encounter
--- OUTSIDE RECORDS SUMMARY | 2024-11-29 09:40 | XMS_ITS | Encounter Summary ---
Author Organization [employer] ([place], [place], [place], [place]) Address [address] [place] [address] Care Team Providers Care Napkin Band Wrapper Name Role Phone Unavailable Primary Care Provider Unavailabl e Encounter Details Date Type Department Care Team (Late st Contact Info) Description 07/19/2019 Transcribed Document [facility] [place] [facility] [place] [address] ProviderMariela MD [address] [place] [phone] Social History Tobacco Use Types Packs/Day Years [...] 13:41:45 07/17/2019 Call received from Tati Erickson [facility], with approval for LTAC services. Last covered date 07/18/2019 with anticipated DC on 07/19/2019. Please fax DC summary on date of discharge. Auth#[id number]. СВЕТЛАНА WANG - 07/17/19 11:32:16 07/17/[address] Snyder (ID), he is in agreement to discharge to SNF on Wednesday, he would like for her to follow-up with the consulting ID (Dr. Stock) in 1 week upon discharge. TELEHEALTH appointment scheduled with Dr. Stock for 07/25/2019 @ 1600. [facility] will call Lexy to facilitate this visit. СВЕТЛАНА WANG - 07/17/19 10:32:31 07/17/2019 faxed clinical review the [facility] at [phone] to request approval for extended ltac services. Auth#[id number], awaiting approval. CM/Discharge plan attached to review. СВЕТЛАНА WANG - 07/17/19 09:06:05 07/17/[address] Jaffe's progress note, yahaira may be removed if okay with Dr. Saenz's office. Per our WOCN, Dr. Saenz's office said they need to see her before they make that decision. Appt scheduled for tomorrow, 07/18/2019 @ 1415; [facility] round-trip transport scheduled for 1315 pick-up ([id number]). Spoke with Lexy Valdez, they have not yet began the patient's insurance preauth, they will today, and be ready to admit on Wednesday. Dr. Jaffe notified and in agreement. [facility] rescheduled for discharge 07/19/2019 @ 1400 ([id number]). YOANNA ARAUJO RN - 07/14/19 15:41:31 Yoanna Araujo 07/13/2019 1500 - patient has accepted bed offer at [facility], she will be transported on WednesdayJuly 16 at 2pm by [facility] Confirmation # [id number]. She [facility]affe notified of discharge plan. YOANNA ARAUJO RN - 07/13/19 14:37:44 Yoanna Araujo 07/13/2019 1400 received call from Ratna with [facility] offering patient a bed, Received call from Isabelle with [facility] she is looking at patient and needed a current height and weight. Still waiting to see if any other bed offers come through. I also sent referral to [facility]. YOANNA ARAUJO RN - 07/13/19 11:04:03 Yoanna Araujo 07/13/2019 1100 faxed out referral for placement for patient to [facility], [facility] Awaiting call backs. СВЕТЛАНА WANG - 07/12/19 12:19:17 07/12/2019 Fax received from [facility] with approval for LTAC services with a request for updated discharge plans and clinical info to support needs if not discharged. Auth#[id number]. Clinical review or discharge summary to be faxed by 07/17/2019. YOANNA ARAUJO RN - 07/12/19 08:39:48 Yoanna Araujo 07/12/2019 0830 - faxed clinical review the [facility] at [phone] to request approval for extended ltac services. Auth#[id number], awaiting approval. YOANNA ARAUJO RN - 06/29/19 [...] health and she has been to the [facility] and [facility] in the past. She has the following equipment at home: wheel chair, walker, cane and shower chair. Her discharge plan is to go to rehab prior to returning home. PCP: Flavia MARQUEZ [address] [place] [address] Tobacco Prizer: Dr. Shemar Barger [address] [facility] [address] [facility] [address] [address] Clemente Del Rio MD - Rheumatology - [address] [place] [address] Preferences: Home Health: [facility]: no preferences DME: [facility] - [address], [place] [address] Senior Care: [facility] at [facility] facility: no preferences Will continue to monitor patient for anticipated discharge needs YOANNA ARAUJO, EDDIE - 06/29/19 08:30:20 Yoanna Araujo 06/29/2019829 received fax from [facility] with approval for extended ltac coverage with next clinical review due on 07/12/2019. Auth#[id number]. Will continue to follow for anticipated discharge needs. YOANNA ARAUJO RN - 06/28/19 08:35:06 Yoanna Araujo 06/28/2019829 Faxed clinical review to [facility] at to request approval for extended Ltac services. Auth#[id number]. Pending Approval. Documentation Status Complete : Yes СВЕТЛАНА WANG - 07/19/2019 9:15 EDT documented in this encounter Plan of Treatment Not on file documented as of this encounter Visit Diagnoses Not on filedocumented in this encounter
--- OUTSIDE RECORDS SUMMARY | 2024-11-29 09:40 | XMS_ITS | Encounter Summary ---
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 Rx to follow, Chrissy Henderson, PharmD [phone] Electronically signed by Chantal, [facility] Conversion Overedge Machine Operator Cerner at 06/16/2022 8:18 PM CDT documented in this encounter Plan of Treatment Not on file documented as of this encounter Visit Diagnoses Not on filedocumented in this encounter
--- OUTSIDE RECORDS SUMMARY | 2024-11-29 09:40 | XMS_ITS | Encounter Summary ---
Author Organization [employer] ([place], [place], [place], [place]) Address [address] [place] [address] Care Team Providers Care Corporate Legal Secretary Name Role Phone Unavailable Primary Care Provider Unavailabl e Encounter Details Date Type Department Care Team (Late st Contact Info) Description 06/26/2019 Transcribed Document [facility] [place] Family Medicine [facility] [address] ProviderMariela MD [address] [place], [place] [phone] Social History Tobacco Use Types Packs/Day Years [...] To Walk With a Standard Walker: 1. supervisory cbp officer your walker. Do not slide your standard [...] 02/15/2006 Document Revised: 07/15/2016 Document Reviewed: 08/30/2015 [employer] Interactive Patient Education ? 2019 [employer] What to expect after the Procedure: [...] or 4 frozen water bottles in the [facility]. ?? Contact a health care provider if: [...] Barley. Bulgur wheat. Millet. Bran muffins. Popcorn. [place] wafer crackers. ?? Vegetables Sweet potatoes. Spinach. Kale. Artichokes. Cabbage. Broccoli. Green peas. Carrots. Squash. ?? Fruits Berries. Pears. Apples. Oranges. Avocados. Prunes and raisins. Dried figs. ?? Meats and Other Protein Sources Henefer, kidney, call, and soy beans. Split peas. [...] gray has 11 g of protein. ?? [place] seeds ??? 1 oz has 5.5 g [...] floor. ?? Place frequently used items in hnna-jz-attel places ?? Keep electrical cables out of [...] ? Using the bathroom. ? Using household netezza architect or toxic chemicals. ? Touching or taking [...] pain. Electronically signed by Maureen Cornejo Conversion Telephone Maintenance Mechanic Cerner at 06/16/2022 8:09 PM CDT documented in this encounter Plan of Treatment Not on file documented as of this encounter Visit Diagnoses Not on filedocumented in this encounter
--- OUTSIDE RECORDS SUMMARY | 2024-11-29 09:40 | XMS_ITS | Encounter Summary ---
Author Organization [employer] ([place], [place], [place], [place]) Address [address] [place] [address] Care Team Providers Care Corporate Tax Preparer Name Role Phone Unavailable Primary Care Provider Unavailabl e Encounter Details Date Type Department Care Team (Late st Contact Info) Description 07/10/2019 Transcribed Document [facility] [place] [facility] [place] [address] ProviderMariela MD [address] [place] [address] Social History Tobacco Use Types Packs/Day Years [...]
--- OUTSIDE RECORDS SUMMARY | 2024-11-29 09:40 | XMS_ITS | Encounter Summary ---
Author Organization [employer] ([place], [place], [place], [place]) Address [address] [place] [address] Care Team Providers Care Deputy Chief Magistrate Name Role Phone Unavailable Primary Care Provider Unavailabl e Encounter Details Date Type Department Care Team (Late st Contact Info) Description 06/26/2019 Transcribed Document [facility] [place] Medicine [facility] [place] [address] ProviderMariela MD [address] [place] [address] Social History Tobacco Use Types Packs/Day Years [...] signed by Maureen Cornejo Conversion Director Of Application Development Min at 06/16/2022 8:07 PM CDT documented in this encounter Plan of Treatment Not on file documented as of this encounter Visit Diagnoses Not on filedocumented in this encounter
--- OUTSIDE RECORDS SUMMARY | 2024-11-29 09:40 | XMS_ITS | Encounter Summary ---
Author Organization [employer] ([place], [place], [place], [place]) Address [address] [place] [address] Care Team Providers Care Rn Lpn Lvn Name Role Phone Unavailable Primary Care Provider Unavailabl e Encounter Details Date Type Department Care Team (Late st Contact Info) Description 08/27/2018 Transcribed Document [facility] [place] [facility] [place] [address] ProviderMariela MD [address] [place] [address] Social History Tobacco Use Types [...] for 45 days Disposition:Plan for transition to [place] when ok with ortho Discussed with patient and time spent with above 25 minutes. VTE Prophylaxis - Medical Sequential Compression Device Start: 08/22/18 12:12:00 EDT, Bilateral, Length: Knee High, Continuous Order (NIMO EPPS) Ortho asked to keep her today with leg not wrapped and plan to be discharged to the [place] tomorrow. Medications Benadryl, 25 mg= 1 Tab, [...]
--- OUTSIDE RECORDS SUMMARY | 2024-11-29 09:41 | XMS_ITS | Encounter Summary ---
Author Organization [employer] ([place], [place], [place], [place]) Address [address] [place] [address] Care Team Providers Care Rehab Technician Name Role Phone Unavailable Primary Care Provider Unavailabl e Encounter Details Date Type Department Care Team (Late st Contact Info) Description 07/07/2019 Transcribed Document [facility] [place] [address] ProviderMariela MD [address] [place] [address] Social History Tobacco Use Types Packs/Day Years [...] Historical ProviderMD - 07/07/2019 2:00 AM CDT Charging Car Operator Details Entered On: 07/07/2019 0:12 EDT Performed [...]
--- OUTSIDE RECORDS SUMMARY | 2024-11-29 09:41 | XMS_ITS | Encounter Summary ---
Author Organization [employer] ([place], [place], [place], [place]) Address [address] [place] [address] Care Team Providers Care Photocopier Technician Name Role Phone Unavailable Primary Care Provider Unavailabl e Encounter Details Date Type Department Care Team (Late st Contact Info) Description 08/28/2018 Transcribed Document [facility] [place] [facility] [address] ProviderMariela MD [address] [place] [address] Social History Tobacco Use Types Packs/Day Years [...]
--- OUTSIDE RECORDS SUMMARY | 2024-11-29 09:41 | XMS_ITS | Encounter Summary ---
Author Organization [employer] ([place], [place], [place], [place]) Address [address] [place] [address] Care Team Providers Care Tile Mason Name Role Phone Unavailable Primary Care Provider Unavailabl e Encounter Details Date Type Department Care Team (Late st Contact Info) Description 08/22/2020 Transcribed Document [facility] [place] Family Medicine [facility] [place] [address] ProviderMariela MD [address] [place] [address] Social History Tobacco Use Types Packs/Day [...]
--- OUTSIDE RECORDS SUMMARY | 2024-11-29 09:41 | XMS_ITS | Encounter Summary ---
Author Organization [employer] ([place], [place], [place], [place]) Address [address] [place] [address] Care Team Providers Care Mutuel Clerk Name Role Phone Unavailable Primary Care Provider Unavailabl e Encounter Details Date Type Department Care Team (Late st Contact Info) Description 08/22/2020 Transcribed Document [facility] [facility] [place] [address] ProviderMariela MD [address] [place] [address] Social History Tobacco Use Types [...]
--- OUTSIDE RECORDS SUMMARY | 2024-11-29 09:41 | XMS_ITS | Encounter Summary ---
Author Organization [employer] ([place], [place], [place], [place]) Address [address] [place] [address] Care Team Providers Care Public Relations Counselor Name Role Phone Unavailable Primary Care Provider Unavailabl e Encounter Details Date Type Department Care Team (Late st Contact Info) Description 07/06/2019 Transcribed Document [facility] [place] Family Medicine [address] [place] [address] ProviderMariela MD [address] [place] [phone] Social History Tobacco Use Types Packs/Day Years [...] Caitlyn Chauhan Rn - 07/06/2019 18:03 EDT Electronically signed by Maureen Cornejo Conversion Central Office Maintainer Cerbryce at 06/16/2022 8:12 PM CDT documented in this encounter Plan of Treatment Not on file documented as of this encounter Visit Diagnoses Not on filedocumented in this encounter
--- OUTSIDE RECORDS SUMMARY | 2024-11-29 09:41 | XMS_ITS | Encounter Summary ---
Author Organization [employer] ([place], [place], [place], [place]) Address [address] [place] [address] Care Team Providers Care Managed Security Sales Consultant Name Role Phone Unavailable Primary Care Provider Unavailabl e Encounter Details Date Type Department Care Team (Late st Contact Info) Description 06/23/2019 Transcribed Document [facility] [place] [address] ProviderMariela MD [address] [place] [address] Social History Tobacco Use Types Packs/Day Years [...] Historical ProviderMD - 06/23/2019 2:00 AM CDT Overnight Stocker Details Entered On: 06/23/2019 0:52 EDT Performed [...] 06/23/2019 0:52 EDT Electronically signed by Chantal [facility] Conversion Ornamental Metal Erector Apprentice Cerner at 06/16/2022 8:12 PM CDT documented in this encounter Plan of Treatment Not on file documented as of this encounter Visit Diagnoses Not on filedocumented in this encounter
--- OUTSIDE RECORDS SUMMARY | 2024-11-29 09:41 | XMS_ITS | Encounter Summary ---
Author Organization [employer] ([place], [place], [place], [place]) Address [address] [place] [address] Care Team Providers Care Allied Health Professional Name Role Phone Unavailable Primary Care Provider Unavailabl e Encounter Details Date Type Department Care Team (Late st Contact Info) Description 06/23/2019 Transcribed Document [facility] [place] [facility] [place] [address] ProviderMariela MD [address] [place] [address] Social History Tobacco Use Types Packs/Day [...]
--- OUTSIDE RECORDS SUMMARY | 2024-11-29 09:41 | XMS_ITS | Encounter Summary ---
Author Organization [employer] ([place], [place], [place], [place]) Address [address] [place] [address] Care Team Providers Care Fun House Operator Name Role Phone Unavailable Primary Care Provider Unavailabl e Encounter Details Date Type Department Care Team (Late st Contact Info) Description 06/22/2019 Transcribed Document [facility] [place] [facility] Medicine [facility] [place] [address] ProviderMariela MD [address] [place] [address] Social History Tobacco Use Types Packs/Day [...] (JUN 18) L 2.0 (JUN 16) Micro: [facility]: 06/15 [facility] Blood cultures positive for group B strep and 2/2 bottles SJE: 06/16 fluid aspiration of left knee shows 118,150 white blood cells, GPC 06/16 repeat blood cultures with Group B Strep 06/16 MRSA surveillance culture and pro/pending 06/16 Urine culture in process/pending Rad: Radiology Results (Last 48 hours) [id number] -- 06/16/2019 21:08 CR Chest 1 Vw [...] suppression - Drains in place will monitor Electronically signed by Maureen Cornejo Conversion Critical Care Registered Nurse Min at 06/16/2022 8:25 PM CDT documented in this encounter Plan of Treatment Not on file documented as of this encounter Visit Diagnoses Not on filedocumented in this encounter
--- OUTSIDE RECORDS SUMMARY | 2024-11-29 09:41 | XMS_ITS | Encounter Summary ---
Author Organization [employer] ([place], [place], [place], [place]) Address [address] [place] [address] Care Team Providers Care Delivery Room Clerk Name Role Phone Unavailable Primary Care Provider Unavailabl e Encounter Details Date Type Department Care Team (Late st Contact Info) Description 08/27/2018 Transcribed Document [facility] [place] [facility] [place] [address] ProviderMariela MD [address] [place] [phone] Social History Tobacco Use Types Packs/Day Years [...]
--- OUTSIDE RECORDS SUMMARY | 2024-11-29 09:41 | XMS_ITS | Encounter Summary ---
Author Organization [employer] ([place], [place], [place], [place]) Address [address] [place] [address] Care Team Providers Care Md Urologist Name Role Phone Unavailable Primary Care Provider Unavailabl e Encounter Details Date Type Department Care Team (Late st Contact Info) Description 08/27/2018 Transcribed Document [facility] [place] [facility] [place] [address] ProviderMariela MD [address] [place] [address] Social History Tobacco Use Types Packs/Day Years [...]
--- OUTSIDE RECORDS SUMMARY | 2024-11-29 09:41 | XMS_ITS | Encounter Summary ---
Author Organization [employer] ([place], [place], [place], [place]) Address [address] [place] [address] Care Team Providers Care Director Of Cardiology Name Role Phone Unavailable Primary Care Provider Unavailabl e Encounter Details Date Type Department Care Team (Late st Contact Info) Description 06/23/2019 Transcribed Document [facility] [place] [address] ProviderMariela MD [address] [place], [place] [phone] Social History Tobacco Use Types Packs/Day Years [...] Vidhi Bailey, EDDIE - 06/23/2019 15:04 EDT Electronically signed by Maureen Cornejo Conversion Silk Screen Frame Assembler Cerner at 06/16/2022 8:21 PM CDT documented in this encounter Plan of Treatment Not on file documented as of this encounter Visit Diagnoses Not on filedocumented in this encounter
--- OUTSIDE RECORDS SUMMARY | 2024-11-29 09:41 | XMS_ITS | Encounter Summary ---
Author Organization [employer] ([place], [place], [place], [place]) Address [address] [place] [address] Care Team Providers Care R D Internship Name Role Phone Unavailable Primary Care Provider Unavailabl e Encounter Details Date Type Department Care Team (Late st Contact Info) Description 08/29/2018 Transcribed Document [facility] [place] [facility] [place] [address] ProviderMariela MD [address] [place] [phone] Social History Tobacco Use Types Packs/Day Years [...]
--- OUTSIDE RECORDS SUMMARY | 2024-11-29 09:41 | XMS_ITS | Encounter Summary ---
Author Organization [employer] ([place], [place], [place], [place]) Address [address] [place] [address] Care Team Providers Care Labor Expediter Name Role Phone Unavailable Primary Care Provider Unavailabl e Encounter Details Date Type Department Care Team (Late st Contact Info) Description 07/18/2019 Transcribed Document [facility] [place] Family Medicine [address] [place] [address] ProviderMariela MD [address], [place] [phone] Social History Tobacco Use Types Packs/Day Years [...]
--- OUTSIDE RECORDS SUMMARY | 2024-11-29 09:41 | XMS_ITS | Encounter Summary ---
Author Organization [employer] ([place], [place], [place], [place]) Address [address] [place] [address] Care Team Providers Care College And Career Counselor Name Role Phone Unavailable Primary Care Provider Unavailabl e Encounter Details Date Type Department Care Team (Late st Contact Info) Description 06/23/2019 Transcribed Document [facility] [place] Medicine [facility] [place] [address] ProviderMariela MD [facility] [place] [address] Social History [...] (JUN 19) L 1.5 (JUN 18) Micro: [facility]: 06/15 [facility] Blood cultures positive for group B strep and 2/2 bottles SJE: 06/16 fluid aspiration of left knee shows 118,150 white blood cells, GPC 06/16 repeat blood cultures with Group B Strep 06/16 MRSA surveillance culture and pro/pending 06/16 Urine culture in process/pending Rad: Radiology Results (Last 48 hours) [id number] -- 06/16/2019 21:08 CR Knee 1 or [...]
--- OUTSIDE RECORDS SUMMARY | 2024-11-29 09:41 | XMS_ITS | Encounter Summary ---
Author Organization [employer] ([place], [place], [place], [place]) Address [address] [place] [address] Care Team Providers Care Management Advisor Name Role Phone Unavailable Primary Care Provider Unavailabl e Encounter Details Date Type Department Care Team (Late st Contact Info) Description 07/06/2019 Transcribed Document [facility] [place] [facility] [place] [address] ProviderMariela MD [address] [place] [address] Social History Tobacco Use Types Packs/Day Years [...]
--- OUTSIDE RECORDS SUMMARY | 2024-11-29 09:41 | XMS_ITS | Encounter Summary ---
Author Organization [employer] ([place], [place], [place], [place]) Address [address] [place] [address] Care Team Providers Care Weight Shifter Name Role Phone Unavailable Primary Care Provider Unavailabl e Encounter Details Date Type Department Care Team (Late st Contact Info) Description 08/28/2018 Transcribed Document [facility] [place] Medicine [facility] [place] [address] ProviderMariela MD [address] [place] [address] Social History Tobacco Use Types Packs/Day Years [...]
--- OUTSIDE RECORDS SUMMARY | 2024-11-29 09:41 | XMS_ITS | Encounter Summary ---
Author Organization [employer] ([place], [place], [place], [place]) Address [address] [place] [address] Care Team Providers Care Car Top Bolter Name Role Phone Unavailable Primary Care Provider Unavailabl e Encounter Details Date Type Department Care Team (Late st Contact Info) Description 07/18/2019 Transcribed Document [facility] [place] [facility] [place] [address] ProviderMariela MD [address] [place] [address] Social History Tobacco Use Types Packs/Day [...]
--- OUTSIDE RECORDS SUMMARY | 2024-11-29 09:41 | XMS_ITS | Encounter Summary ---
Author Organization [employer] ([place], [place], [place], [place]) Address [address] [place] [address] Care Team Providers Care Jack Machine Operator Name Role Phone Unavailable Primary Care Provider Unavailabl e Encounter Details Date Type Department Care Team (Late st Contact Info) Description 08/29/2018 Transcribed Document [facility] [place] [facility] [place] [address] ProviderMariela MD [address] [place] [address] Social History Tobacco Use Types Packs/Day Years [...] Historical ProviderMD - 08/29/2018 2:00 AM CDT Mask Inspector Details Entered On: 08/29/2018 5:50 EDT Performed [...] 08/29/2018 5:49 EDT Electronically signed by Chantal [facility] Conversion Pharmacists Cerner at 06/16/2022 8:17 PM CDT documented in this encounter Plan of Treatment Not on file documented as of this encounter Visit Diagnoses Not on filedocumented in this encounter
--- OUTSIDE RECORDS SUMMARY | 2024-11-29 09:41 | XMS_ITS | Encounter Summary ---
Author Organization [employer] ([place], [place], [place], [place]) Address [address] [place] [address] Care Team Providers Care Political Reporter Name Role Phone Unavailable Primary Care Provider Unavailabl e Encounter Details Date Type Department Care Team (Late st Contact Info) Description 07/18/2019 Transcribed Document [facility] [place] Family Medicine [address] [place] [address] ProviderMariela MD [address] [place] [address] Social History Tobacco Use Types Packs/Day Years [...]
--- OUTSIDE RECORDS SUMMARY | 2024-11-29 09:41 | XMS_ITS | Encounter Summary ---
Author Organization [employer] ([place], [place], [place], [place]) Address [address] [place] [address] Care Team Providers Care Safety Leader Name Role Phone Unavailable Primary Care Provider Unavailabl e Encounter Details Date Type Department Care Team (Late st Contact Info) Description 06/23/2019 Transcribed Document [facility] [place] [facility] [place] [address] ProviderMariela MD [address] [place] [phone] Social History Tobacco Use Types Packs/Day Years [...]
--- OUTSIDE RECORDS SUMMARY | 2024-11-29 09:41 | XMS_ITS | Encounter Summary ---
Author Organization [employer] ([place], [place], [place], [place]) Address [address] [place] [address] Care Team Providers Care Shingle Inspector Name Role Phone Unavailable Primary Care Provider Unavailabl e Encounter Details Date Type Department Care Team (Late st Contact Info) Description 08/29/2018 Transcribed Document [facility] [place] [facility] [place] [address] ProviderMariela MD [address] [place] [address] Social History Tobacco Use Types Packs/Day [...] 08/29/2018 8:26 EDT by MARY MCGRAW Care Management-Event Staff Member Care Management Progress Note Discharge Arrangements : [...] Clinical Condition of Patient MARY MCGRAW Care Management-Event Staff Member - 08/29/2018 8:26 EDT Narrative Progress Note Narrative Progress Note : updated clinical sent to Trevor Rosas, for precert MARY MCGRAW, Care Management-Event Staff Member - 08/29/2018 8:26 EDT Electronically signed by Chantal [facility] Conversion Torsion Spring Coiling Machine Setter Cerner at 06/16/2022 8:09 PM CDT documented in this encounter Plan of Treatment Not on file documented as of this encounter Visit Diagnoses Not on filedocumented in this encounter
--- OUTSIDE RECORDS SUMMARY | 2024-11-29 09:41 | XMS_ITS | Encounter Summary ---
Author Organization [employer] ([place], [place], [place], [place]) Address [address] [place] [address] Care Team Providers Care Brooch And Bracelet Maker Name Role Phone Unavailable Primary Care Provider Unavailabl e Encounter Details Date Type Department Care Team (Late st Contact Info) Description 08/24/2020 Transcribed Document [facility] [place] [facility] [place] [address] ProviderMariela MD [address] [place] [address] Social History Tobacco Use Types Packs/Day [...] EDT Chloraseptic Menthol 1.4% topical spray: 5 [place], Oral, [place], Q2H, PRN for Sore Throat, Routine, Start [...] EDT fluticasone 50 mcg/inh nasal spray: 2 [place], Nostrils Both, [place], BID, PRN for Allergies, Routine, Start 08/20/20 [...] Refill(s) fluticasone 50 mcg/inh nasal spray: 2 [place], Nostrils Both, [place], BID, PRN Allergies, 0 Refill(s) furosemide 40 [...] Oral, Daily fluticasone 0.05% nasal spray 2 [place], Nostrils Both, BID magnesium hydroxide 8% [...] Oral, Q4H phenol 1.4% throat spray 5 [place], Oral, Q2H senna 8.6 mg tab 8.6 [...] % 24.3 % Lymph # 2.40 K/uL Drew % 11.0 % Drew # 1.09 K/uL HI Eos % 4.0 [...] monitoring renal function. Pending insurance approval for rehab/custodial facility. documented in this encounter Plan of Treatment Not on file documented as of this encounter Visit Diagnoses Not on filedocumented in this encounter
--- OUTSIDE RECORDS SUMMARY | 2024-11-29 09:41 | XMS_ITS | Encounter Summary ---
Author Organization [employer] ([place], [place], [place], [place]) Address [address] [place] [address] Care Team Providers Care Hardwood Floor Installation Helper Name Role Phone Unavailable Primary Care Provider Unavailabl e Encounter Details Date Type Department Care Team (Late st Contact Info) Description 08/29/2018 Transcribed Document [facility] [place] [facility] [place] [address] ProviderMariela MD [facility] [place], [place] [phone] Social History Tobacco Use Types Packs/Day Years [...] CHAITANYA SIMON, PT - 08/29/2018 11:10 EDT Machinery Erector Goals Other PT LTG Grid Goal #6 [...] allow safe household or facility ambulation upon [facility] care [place]. Patient will participate [...] CHAITANYA SIMON, PT - 08/29/2018 11:10 EDT [place] PT Charges PT Therap. Exercise 15 min : 1 Gait Training Each 15 Min : 1 PT Eval Low Complexity : 1 CHAITANYA SIMON, PT - 08/29/2018 11:10 EDT documented in this encounter Plan of Treatment Not on file documented as of this encounter Visit Diagnoses Not on filedocumented in this encounter
--- OUTSIDE RECORDS SUMMARY | 2024-11-29 09:41 | XMS_ITS | Encounter Summary ---
Author Organization [employer] ([place], [place], [place], [place]) Address [address] [place] [address] Care Team Providers Care Production Control Coordinator Name Role Phone Unavailable Primary Care Provider Unavailabl e Encounter Details Date Type Department Care Team (Late st Contact Info) Description 07/18/2019 Transcribed Document [facility] [place] [facility] [place] [address] ProviderMariela MD [facility] [place] [address] Social History Tobacco Use Types [...]
--- OUTSIDE RECORDS SUMMARY | 2024-11-29 09:41 | XMS_ITS | Encounter Summary ---
Author Organization [employer] ([place], [place], [place], [place]) Address [address] [place] [address] Care Team Providers Care Molder Hand Name Role Phone Unavailable Primary Care Provider Unavailabl e Encounter Details Date Type Department Care Team (Late st Contact Info) Description 07/06/2019 Transcribed Document [facility] [place] [address] [place] [address] ProviderMariela MD [address] [place], [place] [phone] Social History Tobacco Use Types Packs/Day Years [...] 07/06/2019 3:14 EDT Electronically signed by Chantal [facility] Conversion Soap Maker Min at 06/16/2022 8:23 PM CDT documented in this encounter Plan of Treatment Not on file documented as of this encounter Visit Diagnoses Not on filedocumented in this encounter
--- OUTSIDE RECORDS SUMMARY | 2024-11-29 09:41 | XMS_ITS | Encounter Summary ---
Author Organization [employer] ([place], [place], [place], [place]) Address [address] [place] [address] Care Team Providers Care Accounts Executive Name Role Phone Unavailable Primary Care Provider Unavailabl e Encounter Details Date Type Department Care Team (Late st Contact Info) Description 08/24/2020 Transcribed Document [facility] [place] Family Medicine [address] [place] [address] ProviderMariela MD [address] [place] [address] Social History Tobacco Use Types [...] 08/24/2020 5:52 EDT Electronically signed by Chantal [facility] Conversion Patent Paralegal Min at 06/16/2022 8:13 PM CDT documented in this encounter Plan of Treatment Not on file documented as of this encounter Visit Diagnoses Not on filedocumented in this encounter
--- OUTSIDE RECORDS SUMMARY | 2024-11-29 09:41 | XMS_ITS | Encounter Summary ---
Author Organization [employer] ([place], [place], [place], [place]) Address [address] [place] [address] Care Team Providers Care Homebirth Midwife Name Role Phone Unavailable Primary Care Provider Unavailabl e Encounter Details Date Type Department Care Team (Late st Contact Info) Description 07/18/2019 Transcribed Document [facility] [place] [facility] [place] [address] ProviderMariela MD [address] [place] [phone] Social History Tobacco Use Types Packs/Day Years [...] Dr. Saenz office ???Scheduled to go to shelter facility in a.m. Review of Systems Constitutional: [...] 0.9% 100 mL 2 Gram, IV Piggyback, T73AMcm cyanocobalamin 1,000 mcg tab 5,000 mcg 5 [...] Oral, Q4H fluticasone 0.05% nasal spray 2 [place], Nostrils Both, BID magnesium hydroxide 8% liq [...] % 21.2 % Lymph # 1.73 x10(3)/uL [place] % 9.7 % HI [place] # 0.79 K/uL Eos % 5.8 % [...] antibiotics as recommended by infectious disease. For shelter facility in a.m. to continue her care. documented in this encounter Plan of Treatment Not on file documented as of this encounter Visit Diagnoses Not on filedocumented in this encounter
--- OUTSIDE RECORDS SUMMARY | 2024-11-29 09:41 | XMS_ITS | Encounter Summary ---
Author Organization [employer] ([place], [place], [place], [place]) Address [address] [place] [address] Care Team Providers Care English Professor Name Role Phone Unavailable Primary Care Provider Unavailabl e Encounter Details Date Type Department Care Team (Late st Contact Info) Description 07/05/2019 Transcribed Document [facility] [place] [address] [place] [address] ProviderMariela MD [address] [place], [place] [phone] Social History Tobacco Use Types Packs/Day Years [...]
--- OUTSIDE RECORDS SUMMARY | 2024-11-29 09:41 | XMS_ITS | Encounter Summary ---
Author Organization [employer] ([place], [place], [place], [place]) Address [address] [place] [address] Care Team Providers Care Hydroelectric Plant Maintainer Name Role Phone Unavailable Primary Care Provider Unavailabl e Encounter Details Date Type Department Care Team (Late st Contact Info) Description 07/07/2019 Transcribed Document [facility] [place] [facility] [place] [address] ProviderMariela MD [address] [place], [place] [phone] Social History Tobacco Use Types Packs/Day Years [...]
--- OUTSIDE RECORDS SUMMARY | 2024-11-29 09:41 | XMS_ITS | Encounter Summary ---
Author Organization [employer] ([place], [place], [place], [place]) Address [address] [place] [address] Care Team Providers Care Agricultural Scientist Name Role Phone Unavailable Primary Care Provider Unavailabl e Encounter Details Date Type Department Care Team (Late st Contact Info) Description 08/28/2018 Transcribed Document [facility] [place] [address] [place] [address] ProviderMariela MD [address] [place], [place] [phone] Social History Tobacco Use Types Packs/Day Years [...]
--- OUTSIDE RECORDS SUMMARY | 2024-11-29 09:41 | XMS_ITS | Encounter Summary ---
Author Organization [email or web address] ([place], [place], [place], [place]) Address [address] [place] [address] Care Team Providers Care Bi Analyst Name Role Phone Unavailable Primary Care Provider Unavailabl e Encounter Details Date Type Department Care Team (Late st Contact Info) Description 08/28/2018 Transcribed Document [facility] [place] [address] ProviderMariela MD [address] [place] [phone] Social History Tobacco Use Types Packs/Day Years [...]
--- OUTSIDE RECORDS SUMMARY | 2024-11-29 09:41 | XMS_ITS | Encounter Summary ---
Author Organization [employer] ([place], [place], [place], [place]) Address [address] [place] [address] Care Team Providers Care Keyboarding Teacher Name Role Phone Unavailable Primary Care Provider Unavailabl e Encounter Details Date Type Department Care Team (Late st Contact Info) Description 07/17/2019 Transcribed Document [facility] [place] [facility] [place] [address] ProviderMariela MD [address] [place] [address] Social History Tobacco [...] Note : 07/17/2019 faxed clinical review the [facility] at [phone] to request approval for extended ltac services. Auth#[id number], awaiting approval. CM/Discharge plan attached to review. [...] [facility] round-trip transport scheduled for 1315 pick-up ([id number]). Spoke with Lexy Valdez, they have not yet began the patient's insurance preauth, they will today, and be ready to admit on Wednesday. Dr. Jaffe notified and in agreement. [facility] rescheduled for discharge 07/19/2019 @ 1400 ([id number]). YOANNA ARAUJO RN - 07/14/19 15:41:31 Yoanna Araujo 07/13/2019 1500 - patient has accepted bed offer at [facility], she will be transported on WednesdayJuly 16 at 2pm by [facility] Confirmation # [id number]. She declined the bed offer at [facility] Dr. Jaffe notified of discharge plan. YOANNA ARAUJO RN - 07/13/19 14:37:44 Yoanna Araujo 07/13/2019 1400 received call from Ratna with [facility] offering patient a bed, Received call from Isabelle with [facility] she is looking at patient and needed a current height and weight. Still waiting to see if any other bed offers come through. I also sent referral to [facility]. YOANNA ARAUJO RN - 07/13/19 11:04:03 Yoanna Araujo 07/13/2019 1100 faxed out referral for placement for patient to [facility] nursing and rehab, [facility] and [facility]. Awaiting call backs. СВЕТЛАНА WANG - 07/12/19 12:19:17 07/12/2019 Fax received from [facility] with approval for LTAC services with a request for updated discharge plans and clinical info to support needs if not discharged. Auth#[id number]. Clinical review or discharge summary to be faxed by 07/17/2019. YOANNA ARAUJO RN - 07/12/19 08:39:48 Yoanna Araujo 07/12/2019 0830 - faxed clinical review the [facility] at [phone] to request approval for extended ltac services. Auth#[id number], awaiting approval. YOANNA ARAUJO RN - 06/29/19 [...] health and she has been to the [facility] and [facility] in the past. She has the following equipment at home: wheel chair, walker, cane and shower chair. Her discharge plan is to go to rehab prior to returning home. PCP: Flavia MARQUEZ [address] [place] [phone] Quantitative Developer: Dr. Shemar Barger [address] [facility] [address] [facility] [address] [address] Clemente Del Rio MD - Rheumatology - [address] [place], [place] [phone] Preferences: Home Health: [facility]: no preferences DME: [facility] - [address], [place] [id number] Residential: [facility] facility: no preferences Will continue to monitor patient for anticipated discharge needs YOANNA ARAUJO RN - 06/29/19 08:30:20 Yoanna Araujo 06/29/2019 0830 received fax from [facility] with approval for extended ltac coverage with next clinical review due on 07/12/2019. Auth#[id number]. Will continue to follow for anticipated discharge needs. YOANNA ARAUJO RN - 06/28/19 08:35:06 Yoanna Araujo 06/28/2019 0830 Faxed clinical review to [facility] at to request approval for extended Ltac services. Auth#[id number]. Pending Approval. Documentation Status Complete : Yes СВЕТЛАНА WANG - 07/17/2019 10:31 EDT documented in this encounter Plan of Treatment Not on file documented as of this encounter Visit Diagnoses Not on filedocumented in this encounter
--- OUTSIDE RECORDS SUMMARY | 2024-11-29 09:41 | XMS_ITS | Encounter Summary ---
Author Organization [employer] ([place], [place], [place], [place]) Address [address] [place] [address] Care Team Providers Care Cargoman Name Role Phone Unavailable Primary Care Provider Unavailabl e Encounter Details Date Type Department Care Team (Late st Contact Info) Description 06/22/2019 Transcribed Document [facility] [place] [facility] [place] [address] ProviderMariela MD [facility] [place] [address] Social History Tobacco [...]
--- OUTSIDE RECORDS SUMMARY | 2024-11-29 09:41 | XMS_ITS | Encounter Summary ---
Author Organization [employer] ([place], [place], [place], [place]) Address [address] [place] [address] Care Team Providers Care Foundry Tender Name Role Phone Unavailable Primary Care Provider Unavailabl e Encounter Details Date Type Department Care Team (Late st Contact Info) Description 07/07/2019 Transcribed Document [facility] [place] [facility] [place] [address] ProviderMariela MD [address] [place] [address] Social History Tobacco Use Types Packs/Day Years [...]
--- OUTSIDE RECORDS SUMMARY | 2024-11-29 09:41 | XMS_ITS | Encounter Summary ---
Author Organization [employer] ([place], [place], [place], [place]) Address [address] [place] [address] Care Team Providers Care Pest Controller Assistant Name Role Phone Unavailable Primary Care Provider Unavailabl e Encounter Details Date Type Department Care Team (Late st Contact Info) Description 07/06/2019 Transcribed Document [facility] Radiology [address] [place] [address] Jordan Barahona MD [address] [place] [phone] Social History Tobacco Use Types Packs/Day Years [...] (JULY 02) L 2.4 (JUN 26) Micro: [facility]: 06/15 [facility] Blood cultures positive for group [...]
--- OUTSIDE RECORDS SUMMARY | 2024-11-29 09:41 | XMS_ITS | Encounter Summary ---
Author Organization [employer] ([place], [place], [place], [place]) Address [address] [place] [address] Care Team Providers Care Android Developer Name Role Phone Unavailable Primary Care Provider Unavailabl e Encounter Details Date Type Department Care Team (Late st Contact Info) Description 08/28/2018 Transcribed Document [facility] [place] [address] [place] [address] ProviderMariela MD [address] [place] [address] Social History Tobacco Use Types Packs/Day Years [...]
--- OUTSIDE RECORDS SUMMARY | 2024-11-29 09:41 | XMS_ITS | Encounter Summary ---
Author Organization [employer] ([place], [place], [place], [place]) Address [address] [place] [address] Care Team Providers Care Doughmaker Name Role Phone Unavailable Primary Care Provider Unavailabl e Encounter Details Date Type Department Care Team (Late st Contact Info) Description 07/06/2019 Transcribed Document [facility] [place] [address] ProviderMariela MD [address] [place] [address] Social History Tobacco Use Types Packs/Day Years [...] Historical ProviderMD - 07/06/2019 2:00 AM CDT Quality Control Checker Details Entered On: 07/06/2019 3:12 EDT Performed [...] 07/06/2019 3:09 EDT Electronically signed by Chantal [facility] Conversion Application Development Liaison Cerner at 06/16/2022 8:29 PM CDT documented in this encounter Plan of Treatment Not on file documented as of this encounter Visit Diagnoses Not on filedocumented in this encounter
--- OUTSIDE RECORDS SUMMARY | 2024-11-29 09:41 | XMS_ITS | Encounter Summary ---
Author Organization [employer] ([place], [place], [place], [place]) Address [address] [place] [address] Care Team Providers Care Knitter Hand Name Role Phone Unavailable Primary Care Provider Unavailabl e Encounter Details Date Type Department Care Team (Late st Contact Info) Description 08/21/2020 Transcribed Document [facility] [place] [facility] [place] [address] ProviderMariela MD [address] [place] [address] Social History Tobacco Use Types [...]
--- OUTSIDE RECORDS SUMMARY | 2024-11-29 09:41 | XMS_ITS | Encounter Summary ---
Author Organization [employer] ([place], [place], [place], [place]) Address [address] [place] [address] Care Team Providers Care Driver Name Role Phone Unavailable Primary Care Provider Unavailabl e Encounter Details Date Type Department Care Team (Late st Contact Info) Description 07/17/2019 Transcribed Document [facility] [place] [facility] [place] [address] ProviderMariela MD [address] [place] [address] [phone] Social History Tobacco Use Types Packs/Day Years [...] : 07/17/2019 Call received from Tati Erickson [facility], with approval for LTAC services. Last covered date 07/18/2019 with anticipated DC on 07/19/2019. Please fax DC summary on date of discharge. Auth#[id number]. Care Management Note Report : СВЕТЛАНА WANG - 07/17/19 11:32:16 07/17/[address] Snyder (ID), he is in agreement to discharge to SNF on Wednesday, he would like for her to follow-up with the consulting ID (Dr. Stock) in 1 week upon discharge. TELEHEALTH appointment scheduled with Dr. Stock for 07/25/2019 @ 1600. [facility] will call [facility] to facilitate this visit. СВЕТЛАНА WANG - 07/17/19 10:32:31 07/17/2019 faxed clinical review the [facility] at [phone] to request approval for extended ltac services. Auth#[id number], awaiting approval. CM/Discharge plan attached to review. СВЕТЛАНА WANG - 07/17/19 09:06:05 07/17/[address] Jaffe's progress note, yahaira may be removed if okay with Dr. Saenz's office. Per our WOCN, Dr. Saenz's office said they need to see her before they make that decision. Appt scheduled for tomorrow, 07/18/2019 @ 1415; [facility] round-trip transport scheduled for 1315 pick-up ([id number]). Spoke with Lexy Valdez, they have not yet began the patient's insurance preauth, they will today, and be ready to admit on Wednesday. Dr. Jaffe notified and in agreement. [facility] rescheduled for discharge 07/19/2019 @ 1400 ([id number]). YOANNA ARAUJO RN - 07/14/19 15:41:31 Yoanna Araujo 07/13/2019 1500 - patient has accepted bed offer at [facility], she will be transported on WednesdayJuly 16 at 2pm by [facility] Confirmation # [id number]. She declined the bed offer at [facility]. Dr. Jaffe notified of discharge plan. YOANNA ARAUJO RN - 07/13/19 14:37:44 Yoanna Araujo 07/13/2019 1400 received call from Ratna with [facility] offering patient a bed, Received call from Isabelle with [facility] she is looking at patient and needed a current height and weight. Still waiting to see if any other bed offers come through. I also sent referral to [facility]. YOANNA ARAUJO, EDDIE - 07/13/19 11:04:03 Yoanna Araujo 07/13/2019 1100 faxed out referral for placement for patient to [facility] nursing and rehab, [facility] and triology facilities. Awaiting call backs. СВЕТЛАНА WANG - 07/12/19 12:19:17 07/12/2019 Fax received from [facility] with approval for LTAC services with a request for updated discharge plans and clinical info to support needs if not discharged. Auth#[id number]. Clinical review or discharge summary to be faxed by 07/17/2019. YOANNA ARAUJO RN - 07/12/19 08:39:48 Yoanna Araujo 07/12/2019 0830 - faxed clinical review the [facility] at [phone] to request approval for extended ltac services. Auth#[id number], awaiting approval. YOANNA ARAUJO RN - 06/29/19 [...] health and she has been to the [facility] and [facility] in the past. She has the following equipment at home: wheel chair, walker, cane and shower chair. Her discharge plan is to go to rehab prior to returning home. PCP: Flavia MARQUEZ [address] [place] [address] Shuttle Van Driver: Dr. Shemar Barger [id number] Clemente Del Rio MD - Rheumatology - [address] [place] [address] Preferences: Home Health: [facility]: no preferences DME: [facility] - [address] [place] [address] Long Term: [facility] facility: no preferences Will continue to monitor patient for anticipated discharge needs YOANNA ARAUJO RN - 06/29/19 08:30:20 Yoanna Araujo 06/29/2019 0830 received fax from [facility] with approval for extended ltac coverage with next clinical review due on 07/12/2019. Auth#[id number]. Will continue to follow for anticipated discharge needs. YOANNA ARAUJO, EDDIE - 06/28/19 08:35:06 Yoanna Araujo 06/28/2019 0830 Faxed clinical review to [facility] at to request approval for extended Ltac services. Auth#[id number]. Pending Approval. Documentation Status Complete : Yes СВЕТЛАНА WANG - 07/17/2019 13:39 EDT documented in this encounter Plan of Treatment Not on file documented as of this encounter Visit Diagnoses Not on filedocumented in this encounter
--- OUTSIDE RECORDS SUMMARY | 2024-11-29 09:41 | XMS_ITS | Encounter Summary ---
Author Organization [employer] ([place], [place], [place], [place]) Address [address] [place] [address] Care Team Providers Care Washtub Worker Name Role Phone Unavailable Primary Care Provider Unavailabl e Encounter Details Date Type Department Care Team (Late st Contact Info) Description 08/21/2020 Transcribed Document [facility] [place] [facility] [place] [address] ProviderMariela MD [address] [place] [address] Social History Tobacco Use Types Packs/Day Years Used Date Smoking Tobacco: Never Assessed Comments Unknown Sex and Gender Information Value Date Recorded Sex Assigned at Female 09/02/2021 8:57 PM CDT Legal Sex Female 6:58 PM CDT Gender Identity Female 09/02/2021 8:57 PM CDT Sexual Orientation Not on file documented as of this encounter Miscellaneous Notes * Cerner Conversion Note - Mariela Gatse MD - 08/21/2020 4:30 PM CDT Patient: SOFIA GILL Age: 80 years Sex: Female : 1940 Associated Diagnoses: Right knee pain; S/p R TKA revision; Status post quadriceps tendon repair; HTN (hypertension); Hypercholesteremia; Hypothyroid; Chronic venous insufficiency; A. fib; Sleep apnea; Obesity (BMI 30-39.9) Author: DONNA DIRVER MD-INT Basic Information awake alert but in pain ???Has a Castellano catheter ???Has a cast from her foot to her groin ???No chest pain or trouble breathing ???No nausea vomiting ???Hypotensive ???Needs to go to senior living facility on discharge and when stable Review [...] EDT Chloraseptic Menthol 1.4% topical spray: 5 [place], Oral, [place], Q2H, PRN for Sore Throat, Routine, Start [...] EDT fluticasone 50 mcg/inh nasal spray: 2 [place], Nostrils Both, [place], BID, PRN for Allergies, Routine, Start 08/20/20 [...] Refill(s) fluticasone 50 mcg/inh nasal spray: 2 [place], Nostrils Both, [place], BID, PRN Allergies, 0 Refill(s) furosemide 40 [...] Oral, Daily fluticasone 0.05% nasal spray 2 [place], Nostrils Both, BID magnesium hydroxide 8% liq [...] Oral, Q4H phenol 1.4% throat spray 5 [place], Oral, Q2H promethazine 25 mg tab 12.5 [...] and urine output. Case management for rehabilitation referral/senior living facility. documented in this encounter Plan of Treatment Not on file documented as of this encounter Visit Diagnoses Not on filedocumented in this encounter
--- OUTSIDE RECORDS SUMMARY | 2024-11-29 09:41 | XMS_ITS | Encounter Summary ---
Author Organization [employer] ([place], [place], [place], [place]) Address [address] [place] [address] Care Team Providers Care Asp Net Software Developer Name Role Phone Unavailable Primary Care Provider Unavailabl e Encounter Details Date Type Department Care Team (Late st Contact Info) Description 08/28/2018 Transcribed Document [facility] [place] [facility] [place] [address] ProviderMariela MD [address] [place] [address] Social History Tobacco Use Types [...] LOW 34.1-44.9 Y Electronically signed by Chantal, [facility] Conversion Literacy Specialist Cerner at 06/16/2022 8:18 PM CDT documented in this encounter Plan of Treatment Not on file documented as of this encounter Visit Diagnoses Not on filedocumented in this encounter
--- OUTSIDE RECORDS SUMMARY | 2024-11-29 09:41 | XMS_ITS | Encounter Summary ---
Author Organization [employer] ([place], [place], [place], [place]) Address [address] [place] [address] Care Team Providers Care Cullet Trucker Name Role Phone Unavailable Primary Care Provider Unavailabl e Encounter Details Date Type Department Care Team (Late st Contact Info) Description 08/21/2020 Transcribed Document [facility] [place] Medicine [place] [address] ProviderMariela MD [address] [place] [address] Social History Tobacco Use Types [...] Performed On: 08/21/2020 7:50 EDT by KARAN WATOSN RN-Utilization Review Primary Insurance Authorization Authorization and Policy Numbers : Insurance 1 Health Plan: [facility] MEDICARE ADVANTAGE Policy Number: [id number] Authorization Number: [id number] Insurance Primary Name : [facility] MEDICARE ADVANTAGE Policy Number: [id number] Authorization Status-Primary : Admit approved Reference Number-Primary : [id number] Authorization Number-Primary : [id number] Number of Days Authorized-Primary : 0 Day(s) Authorized Service Begin Date-Primary : 08/20/2020 EDT Authorized Service End Date-Primary : 08/20/2020 EDT Historical Authorization Comments-Primary : Comment 1: Note on [facility] website:Patient was initially scheduled for [...] AQUINO, RN-Utilization Review 08/19/2020 15:20) Comment 2: [facility] Medicare approved per website for 1 day (TIESHA AQUINO RN-Utilization Review 08/19/2020 15:14) KARAN WATSON RN-Utilization Review - 08/21/2020 7:50 EDT Electronically signed by Maureen Cornejo Conversion Fiberglass Auto Body Repairer Cerner at 06/16/2022 8:29 PM CDT documented in this encounter Plan of Treatment Not on file documented as of this encounter Visit Diagnoses Not on filedocumented in this encounter
--- OUTSIDE RECORDS SUMMARY | 2024-11-29 09:41 | XMS_ITS | Encounter Summary ---
Author Organization [employer] ([place], [place], [place], [place]) Address [address] [place] [address] Care Team Providers Care Career Technology Teacher Name Role Phone Unavailable Primary Care Provider Unavailabl e Encounter Details Date Type Department Care Team (Late st Contact Info) Description 07/06/2019 Transcribed Document [facility] [place] [facility] [place] [facility] [place] [address] ProviderMariela MD [address] [place] [address] [phone] Social History Tobacco Use Types Packs/Day Years [...] 0.9% 50 mL 2 Gram, IV Piggyback, [id number] cyanocobalamin 1,000 mcg tab 5,000 mcg 5 [...] fluticasone 0.05% nasal spray 100 mcg 2 [place], Nostrils Both, BID magnesium hydroxide 8% liq [...] % 23.0 % Lymph # 1.50 x10(3)/uL [place] % 12.3 % HI [place] # 0.80 K/uL Eos % 3.7 % [...]
--- OUTSIDE RECORDS SUMMARY | 2024-11-29 09:41 | XMS_ITS | Encounter Summary ---
Author Organization [employer] ([place], [place], [place], [place]) Address [address] [place] [address] Care Team Providers Care Security Project Manager Name Role Phone Unavailable Primary Care Provider Unavailabl e Encounter Details Date Type Department Care Team (Late st Contact Info) Description 08/22/2020 Transcribed Document [facility] [place] [facility] [place] [address] ProviderMariela MD [address] [place] [address] Social History Tobacco Use Types [...]
--- OUTSIDE RECORDS SUMMARY | 2024-11-29 09:42 | XMS_ITS | Encounter Summary ---
Author Organization [employer] ([place], [place], [place], [place]) Address [address] [place] [address] Care Team Providers Care Skid Machine Operator Name Role Phone Unavailable Primary Care Provider Unavailabl e Encounter Details Date Type Department Care Team (Late st Contact Info) Description 06/23/2019 Transcribed Document [facility] [place] [address] ProviderMariela MD [address] [place] [address] Social History Tobacco Use Types Packs/Day [...] 0.9% 50 mL 2 Gram, IV Piggyback, [id number] cyanocobalamin 1,000 mcg tab 5,000 mcg 5 Tab, Oral, Daily docusate sodium 100 mg cap 100 mg 1 Cap, Oral, BID DULoxetine DR 60 mg cap 60 mg 1 Cap, Oral, Daily enoxaparin 40 mg/0.4 mL inj 40 mg 0.4 mL, SubCutaneous, [id number] gabapentin 300 mg cap 300 mg 1 [...] At Bedtime fluticasone 0.05% nasal spray 2 [place], Nostrils Both, BID LORazepam 2 mg/mL inj [...] Topical, Q1H phenol 1.4% throat spray 1 [place], Oral, Q2H potassium chloride 10 mEq 100 [...] % LOW ALYC # 3 K/uL NA [place] Percent Man 6 % HI Myelo Percent [...] % LOW ALYC # 1 K/uL NA [place] Percent Man 6 % HI [place] Percent Man 3 % HI Myelo Percent [...]
--- OUTSIDE RECORDS SUMMARY | 2024-11-29 09:42 | XMS_ITS | Encounter Summary ---
Author Organization [employer] ([place], [place], [place], [place]) Address [address] [place] [address] Care Team Providers Care Commutator Operator Name Role Phone Unavailable Primary Care Provider Unavailabl e Encounter Details Date Type Department Care Team (Late st Contact Info) Description 08/29/2018 Transcribed Document [facility] [place] [facility] [place] [address] ProviderMariela MD [facility] [place] [place] [address] Social History Tobacco Use Types [...] Mariela ProviderMD - 08/29/2018 5:25 PM CDT [place] [phone] SOFIA GILL :1940 Visit Time:08/22/2018 Your Visit [...] Team INSURANCE APPROVAL OBTAINED FOR DISCHARGE TO [facility] TODAY, CALL REPORT TO [phone] FAX D/C SUMMARY TO [phone] Follow-Up Appointments Follow Up with SOLOMON MCCRACKEN PA-C When 09/08/2018 09:00 AM EDT Comments Appointment has been made Where: Follow Up with [facility] When Where: [address] [place] [address]- Medications What How Much When Instructions Next [...] (fluticasone 50 mcg/ inh nasal spray) 2 [place](s) Nostrils Both Two Times A Day as [...] Barley. Bulgur wheat. Millet. Bran muffins. Popcorn. [place] wafer crackers. ??? Vegetables Sweet potatoes. Spinach. Kale. Artichokes. Cabbage. Broccoli. Green peas. Carrots. Squash. ??? Fruits Berries. Pears. Apples. Oranges. Avocados. Prunes and raisins. Dried figs. ??? Meats and Other Protein Sources [place], kidney, call, and soy beans. Split peas. [...] gray has 11 g of protein. ??? Wann seeds ??? 1 oz has 5.5 g [...] floor. ??? Place frequently used items in ygpa-wg-drpjg places ??? Keep electrical cables out of [...] ? Using the bathroom. ? Using household metallurgy laboratory technician or toxic chemicals. ? Touching or [...] What is aspirin? Aspirin is a salicylate (rb-PIN-it-ate). It works by reducing substances in the [...] may report side effects to FDA at 0-933-UWD-6895. What other drugs will affect aspirin? Ask [...] drugs may affect aspirin, including prescription and vqac-cfw-ajmperg medicines, vitamins, and herbal products. Not all [...] to ensure that the information provided by [employer]. ('[employer]') is accurate, up-to-date, and complete, but no guarantee is made to that effect. Drug information contained herein may be time sensitive. [employer] information has been compiled for use by healthcare practitioners and consumers in the [place] and therefore [employer] does not warrant that uses outside of the [place] are appropriate, unless specifically indicated otherwise. [employer] drug information does not endorse drugs, diagnose patients or recommend therapy. [employer] drug information is an informational resource designed [...] effective or appropriate for any given patient. [employer] does not assume any responsibility for any aspect of healthcare administered with the aid of information [employer] provides. The information contained herein is not intended to cover all possible uses, directions, precautions, warnings, drug interactions, allergic reactions, or adverse effects. If you have questions about the drugs you are taking, check with your doctor, nurse or pharmacist. Copyright 1319-6985 [employer]. Version: 15.02. Revision Date: 05/31/2017.gabapentin ([place] ba [...] are a day sleeper or work a investment strategist. Some people have thoughts about suicide while [...] may report side effects to FDA at 4-970-ZQM-4964. What other drugs will affect gabapentin? Taking gabapentin with other drugs that make you sleepy can worsen this effect. Ask your doctor before taking a sleeping pill, narcotic medication, muscle relaxer, or medicine for anxiety, depression, or seizures. Other drugs may interact with gabapentin, including prescription and euxm-kug-wxakcnl medicines, vitamins, and herbal products. Tell your [...] to ensure that the information provided by [employer]. ('[employer]') is accurate, up-to-date, and complete, but no guarantee is made to that effect. Drug information contained herein may be time sensitive. [employer] information has been compiled for use by healthcare practitioners and consumers in the [place] and therefore [employer] does not warrant that uses outside of the [place] are appropriate, unless specifically indicated otherwise. [employer]'s drug information does not endorse drugs, diagnose patients or recommend therapy. [facility] drug information is an informational resource designed [...] effective or appropriate for any given patient. [facility] does not assume any responsibility for any aspect of healthcare administered with the aid of information [facility] provides. The information contained herein is not intended to cover all possible uses, directions, precautions, warnings, drug interactions, allergic reactions, or adverse effects. If you have questions about the drugs you are taking, check with your doctor, nurse or pharmacist. Copyright 6416-4401 [employer]. Version: 14.. Revision Date: 12/08/2016.hydromorphone (oral) (JATINDER [...] extended-release form of this medicine is for tnexvm-dra-ziocx treatment of moderate to severe pain, not [...] against the law. Stop taking all other yrvjji-pdw-xwjhh narcotic pain medications when you start taking [...] may report side effects to FDA at 5-140-AWD-8493. What other drugs will affect hydromorphone? Opioid [...] drugs may affect hydromorphone, including prescription and pgjg-zpw-lutbyns medicines, vitamins, and herbal products. Not all [...] to ensure that the information provided by [employer]. ('[employer]') is accurate, up-to-date, and complete, but no guarantee is made to that effect. Drug information contained herein may be time sensitive. [employer] information has been compiled for use by healthcare practitioners and consumers in the [place] and therefore [employer] does not warrant that uses outside of the [place] are appropriate, unless specifically indicated otherwise. [employer]'s drug information does not endorse drugs, diagnose patients or recommend therapy. [facility] drug information is an informational resource designed [...] effective or appropriate for any given patient. [facility] does not assume any responsibility for any aspect of healthcare administered with the aid of information [facility] provides. The information contained herein is not intended to cover all possible uses, directions, precautions, warnings, drug interactions, allergic reactions, or adverse effects. If you have questions about the drugs you are taking, check with your doctor, nurse or pharmacist. Copyright 0094-4310 [facility]. Version: 9.02. Revision Date: 01/26/2018.docusate (oral/rectal) (DOK [...] may report side effects to FDA at 7-555-YPO-9942. What other drugs will affect docusate? Other drugs may interact with docusate, including prescription and peuw-smw-dmecsyj medicines, vitamins, and herbal products. Tell each [...] to ensure that the information provided by [employer]. ('[employer]') is accurate, up-to-date, and complete, but no guarantee is made to that effect. Drug information contained herein may be time sensitive. [employer] information has been compiled for use by healthcare practitioners and consumers in the [place] and therefore [employer] does not warrant that uses outside of the [place] are appropriate, unless specifically indicated otherwise. [facility] drug information does not endorse drugs, diagnose patients or recommend therapy. The [employer] drug information is an informational resource designed [...] effective or appropriate for any given patient. [employer] does not assume any responsibility for any aspect of healthcare administered with the aid of information [employer] provides. The information contained herein is not intended to cover all possible uses, directions, precautions, warnings, drug interactions, allergic reactions, or adverse effects. If you have questions about the drugs you are taking, check with your doctor, nurse or pharmacist. Copyright 3025-5665 [employer]. Version: 3.03. Revision Date: 04/12/2013.acetaminophen (oral) (a SEET a MIN oh fen) Actamin, Anacin AF, Apra, Bromo Hagaman, Children's Tylenol, Elixsure Fever/Pain, Mapap, Medi-Tabs, Q-Pap, [...] is a pain reliever and a fever route relief driver. Acetaminophen is used to treat many conditions [...] may report side effects to FDA at 6-213-RTL-1301. What other drugs will affect acetaminophen? Other drugs may interact with acetaminophen, including prescription and xocw-jtq-coglbgn medicines, vitamins, and herbal products. Tell your [...] prescribed. Electronically signed by Maureen Cornejo Conversion Blood Donor Recruiter Supervisor Cerner at 06/16/2022 8:27 PM CDT documented in this encounter Plan of Treatment Not on file documented as of this encounter Visit Diagnoses Not on filedocumented in this encounter
--- OUTSIDE RECORDS SUMMARY | 2024-11-29 09:42 | XMS_ITS | Encounter Summary ---
Author Organization [employer] ([place], [place], [place], [place]) Address [address] [place] [address] Care Team Providers Care Glassie Name Role Phone Unavailable Primary Care Provider Unavailabl e Encounter Details Date Type Department Care Team (Late st Contact Info) Description 08/29/2018 Transcribed Document [facility] [place] [facility] [place] [address] ProviderMariela MD [facility] [place] [address] Social History Tobacco Use [...] 08/29/2018 15:58 EDT by MARY MCGRAW Care Management-Safety Teacher Care Management Progress Note Discharge Arrangements : Patient Post-Acute Information Patient Name: SOFIA BARLOW Gender: Female : [birth year] Age: 78 Years No Post-Acute Placement(s) Listed No Post-Acute Service(s) Listed No [place] Referral(s) Listed Discharge Options Discussed with Patient : Home Health, Short term rehabilitation Barriers to Discharge Unresolved : All resolved MARY MCGRAW Care Management-Safety Teacher - 08/29/2018 15:58 EDT documented in this encounter Plan of Treatment Not on file documented as of this encounter Visit Diagnoses Not on filedocumented in this encounter
--- OUTSIDE RECORDS SUMMARY | 2024-11-29 09:42 | XMS_ITS | Encounter Summary ---
Author Organization [employer] ([place], [place], [place], [place]) Address [address] [place] [address] Care Team Providers Care Operating Room Manager Name Role Phone Unavailable Primary Care Provider Unavailabl e Encounter Details Date Type Department Care Team (Late st Contact Info) Description 07/08/2019 Transcribed Document [facility] [place] [facility] [place] [address] ProviderMariela MD [address] [place] [id number] Social History Tobacco Use Types Packs/Day Years [...] 0.9% 50 mL 2 Gram, IV Piggyback, [id number] cyanocobalamin 1,000 mcg tab 5,000 mcg 5 [...] Oral, Q4H fluticasone 0.05% nasal spray 2 [place], Nostrils Both, BID magnesium hydroxide 8% liq [...] % 25.0 % Lymph # 1.57 x10(3)/uL [place] % 12.1 % HI [place] # 0.76 K/uL Eos % 4.8 % [...] precautions. Stress ulcer prophylaxis. BiPAP during sleep.. Electronically signed by Maureen Cornejo Conversion Packerhead Machine Operator Cerner at 06/16/2022 8:05 PM CDT documented in this encounter Plan of Treatment Not on file documented as of this encounter Visit Diagnoses Not on filedocumented in this encounter
--- OUTSIDE RECORDS SUMMARY | 2024-11-29 09:42 | XMS_ITS | Encounter Summary ---
Author Organization [employer] ([place], [place], [place], [place]) Address [address] [place] [address] Care Team Providers Care County Director Welfare Name Role Phone Unavailable Primary Care Provider Unavailabl e Encounter Details Date Type Department Care Team (Late st Contact Info) Description 06/23/2019 Transcribed Document [facility] Family [place] [facility] [address] ProviderMariela [place] [facility] [address] Social History Tobacco Use Types [...] On: 06/23/2019 11:41 EDT by DEBORAH CAMPOS RN-Dairy HandClinical Rehabilitation Coordinator Progress Note Discharge Arrangements : Patient Post-Acute Information Patient Name: SOFIA GILL Gender: Female : [birth year] Age: 79 Years No Post-Acute Placement(s) Listed No Post-Acute Service(s) Listed No [place] Referral(s) Listed DEBORAH CAMPOS RN-Dairy Hand - 06/23/2019 17:10 EDT Barriers to Discharge [...] Attend Multidisciplinary Rounds? : No DEBORAH CAMPOS RN-Dairy Hand - 06/23/2019 11:41 EDT Narrative Progress Note Narrative Progress Note : RECEIVED CALL FROM [facility] WITH [facility]..PATIENT HAS BEEN ACCEPTED AND THEY WILL HAVE A BED SOMETIME NEXT WEEK..CM WILL CONTINUE TO FOLLOW AND INFORM DR DRIVER OF THE ABOVE..LM SPOKE WITH PT AT BEDSIDE AND SHE IS AWARE THAT L-TACH HAS STARTED A PRECERT AND HOPEFULLY WILL HAVE BED AVAILABLE ON WEDNESDAY PENDING AUTHORIZATION..DR DRIVER AWARE..LM Historical Progress Note : Sent referral to LTACH through [facility]..........MIKE Adam RN-Dairy Hand - 06/21/19 16:57:54 Was planning for AKA, now patient will undergo a total joint revision with I&D. Will continue to follow.............MIKE Adam RN-Dairy Hand - 06/21/19 16:36:10 PICC line placed, Per LID, plan for group home IV abx. Surgery scheduled for today................MIKE Adam RN-Dairy Hand - 06/21/19 10:06:05 No MDR this AM with provider. Patient with low-grade fever this AM and throughout the night. LAKA was rescheduled for 06/20 for this reason. CM will continue to follow. Halima Tripathi, EDDIE-MORTAR MAN - 06/20/19 11:50:51 Patient becoming more agitated and confused, refusing to wear oxygen. Patient now on CPAP, WBC increased, BC x2 positive for group b Strep. Dr Saenz to perform AKA tomorrow morning. Will continue to follow..............MIKE Adam RN-Dairy Hand - 06/19/19 11:35:19 DEBORAH CAMPOS RN-Dairy Hand - 06/23/2019 17:10 EDT Electronically signed by Maureen Cornejo Conversion Automobile Body Repairer Helper Cerner at 06/16/2022 8:16 PM CDT documented in this encounter Plan of Treatment Not on file documented as of this encounter Visit Diagnoses Not on filedocumented in this encounter
--- OUTSIDE RECORDS SUMMARY | 2024-11-29 09:42 | XMS_ITS | Encounter Summary ---
Author Organization [employer] ([place], [place], [place], [place]) Address [address] [place] [address] Care Team Providers Care Mri Assistant Name Role Phone Unavailable Primary Care Provider Unavailabl e Encounter Details Date Type Department Care Team (Late st Contact Info) Description 08/22/2020 Transcribed Document [facility] [place] [facility] [place] [address] ProviderMariela MD [address] [place] [address] Social History Tobacco Use Types [...]
--- OUTSIDE RECORDS SUMMARY | 2024-11-29 09:42 | XMS_ITS | Encounter Summary ---
Author Organization [employer] ([place], [place], [place], [place]) Address [address] [place] [address] Care Team Providers Care Batch Mixing Truck Driver Name Role Phone Unavailable Primary Care Provider Unavailabl e Encounter Details Date Type Department Care Team (Late st Contact Info) Description 06/23/2019 Transcribed Document [facility] [place] [facility] [place] [address] ProviderMariela MD [address] [place] [address] Social History Tobacco Use Types Packs/Day [...]
--- OUTSIDE RECORDS SUMMARY | 2024-11-29 09:42 | XMS_ITS | Encounter Summary ---
Author Organization [employer] ([place], [place], [place], [place]) Address [address] [place] [address] Care Team Providers Care Measuring Clerk Name Role Phone Unavailable Primary Care Provider Unavailabl e Encounter Details Date Type Department Care Team (Late st Contact Info) Description 07/18/2019 Transcribed Document [facility] [place] [facility] [place] [address] ProviderMariela MD [address] [place] [address] Social History Tobacco Use Types Packs/Day [...]
--- OUTSIDE RECORDS SUMMARY | 2024-11-29 09:42 | XMS_ITS | Encounter Summary ---
Author Organization [employer] ([place], [place], [place], [place]) Address [address] [place] [address] Care Team Providers Care Cinder Block Maker Name Role Phone Unavailable Primary Care Provider Unavailabl e Encounter Details Date Type Department Care Team (Late st Contact Info) Description 07/19/2019 Transcribed Document [facility] [place] [facility] [place] [address] ProviderMariela MD [address] [place] [address] Social History Tobacco Use Types Packs/Day [...] Gates MD - 07/19/2019 2:03 PM CDT [address] [address] SOFIA GILL :1940 Visit Time:06/26/2019 [...] Instructions From Your Care Team Discharge to [facility] 07/19/2019 @ 1400 (Maria L wheelchair van) Call report to [phone] Fax DC summary to [phone] Discharge Follow Up Instructions: F/U with dr cordova as kary.F/U with dr lopez as kary, Order Comment: Follow-up with PCP as scheduled or PRN Activity: PER DR MONAHAN RECOMMENDATIONS, Discharge Activity: Other (use Special Instructions) Diet: Discharge Diet: Resume usual diet as tolerated Follow-Up Appointments Follow Up with NIMO EPPS MD-ORT When 08/17/2019 01:30 PM EDT Comments Ortho follow-up Where: [address] [place], [place] [id number]- [phone] Follow Up with ARA STOCK MD-INF When 07/25/2019 04:00 PM EDT Comments ID Follow-up. TELEHEALTH appt with Dr. Stock. The office will call [facility] to facilitate this visit. Where: [address] [phone] Follow Up with ANDREW OQUENDO MD-INT When Comments Admitting physician @ [facility] Where: Warfarin Instructions Notify Provider of Signs/Symptoms of: Significant bleeding, Clot Medications What How Much When Instructions Next Dose acetaminophen-hydrocodone (Coyle 7.5 mg-325 mg oral tablet) 1 Tablet(s) [...] (fluticasone 50 mcg/ inh nasal spray) 2 [place](s) Nostrils Both Two Times A Day as [...] other medicines or supplements? Many prescription and fqbi-zfg-hcyiktt medicines can interfere with warfarin. Talk with your health care provider or your pharmacist before starting or stopping any new medicines. This includes sewe-nje-auokxrg vitamins, dietary supplements, herbal medicines, and pain medicines. Your warfarin dosage may need to be adjusted. ??? Some common thlq-zol-odocwfm medicines that may increase the risk of [...] that you work with a diet and nutritionist public health (dietitian). ??? Vitamin K decreases the effect [...] cooked. ??? Collards, raw or cooked. ??? [place] chard, raw or cooked. ??? Mustard greens, raw or cooked. ??? Turnip greens, raw or cooked. ??? Parsley, raw. ??? Broccoli, cooked. ??? Noodles, eggs, and spinach, enriched. ??? Bunn sprouts, raw or cooked. ??? Beet greens, [...] diet. ??? You start or stop any yhkv-ghe-zbolpyo medicine, prescription medicine, or dietary supplement. ??? [...] 02/15/2006 Document Revised: 06/21/2017 Document Reviewed: 05/13/2016 StepOne Interactive Patient Education ?? 2019 [employer] Hypertension, Adult High blood pressure (hypertension) [...] provider. This is important. Medicines ??? Take hkbe-ada-pjprmza and prescription medicines only as told by [...] 02/15/2006 Document Revised: 10/26/2018 Document Reviewed: 10/26/2018 StepOne Interactive Patient Education ?? 2019 [employer]One Inc. How to Use a Knee Immobilizer [...] 02/15/2006 Document Revised: 02/01/2017 Document Reviewed: 02/01/2017 StepOne Interactive Patient Education ?? 2019 [employer] Emergency Awareness and Preventative Care STROKE [...] Assistance with quitting is available by contacting 9-876-WWXF-NOW. This is a free resource providing counseling, [...] range between ( 0.0 and 7.0 ) [place] #: 0.79 K/uL -- Normal range between ( 0.16 and 1.00 ) Eos #: 0.47 x10(3)/uL -- Normal range between ( 0.00 and 0.80 ) [place] %: 9.7 % -- Normal range between [...] was given the opportunity to ask questions. Patient/Supply Teacher Name: Patient/Supply Teacher Signature: Relationship to Patient: Clinician/Hospital Supply Teacher Signature: Date: documented in this encounter Plan of Treatment Not on file documented as of this encounter Visit Diagnoses Not on filedocumented in this encounter
--- OUTSIDE RECORDS SUMMARY | 2024-11-29 09:42 | XMS_ITS | Clinical Summary ---
Author Organization [employer] ([place], [place], [place], [place]) Address [address] [place] [address] Care Team Providers Care Dry Ice Machine Operator Name Role Phone Unavailable Primary [...]
--- OUTSIDE RECORDS SUMMARY | 2024-11-29 09:42 | XMS_ITS | Encounter Summary ---
Author Organization [employer] ([place], [place], [place], [place]) Address [address] [place] [address] Care Team Providers Care Radiochemical Technician Name Role Phone Unavailable Primary Care Provider Unavailabl e Encounter Details Date Type Department Care Team (Late st Contact Info) Description 06/23/2019 Transcribed Document [facility] [place] [address] [place] [address] ProviderMariela MD [address] [place], [place] [phone] Social History Tobacco Use Types Packs/Day Years [...] 06/23/2019 18:48 EDT Electronically signed by Chantal [facility] Conversion Exhibitions Curator Min at 06/16/2022 8:14 PM CDT documented in this encounter Plan of Treatment Not on file documented as of this encounter Visit Diagnoses Not on filedocumented in this encounter
--- OUTSIDE RECORDS SUMMARY | 2024-11-29 09:42 | XMS_ITS | Encounter Summary ---
Author Organization [employer] ([place], [place], [place], [place]) Address [address] [place] [address] Care Team Providers Care Network Field Engineer Name Role Phone Unavailable Primary Care Provider Unavailabl e Encounter Details Date Type Department Care Team (Late st Contact Info) Description 07/18/2019 Transcribed Document [facility] [place] Medicine [address] [place] [address] ProviderMariela MD [address] [place], [place] [phone] Social History Tobacco Use Types Packs/Day Years [...] Historical ProviderMD - 07/18/2019 2:00 AM CDT Wafer Polishing Lead Worker Details Entered On: 07/18/2019 2:50 EDT Performed [...] 07/18/2019 2:49 EDT Electronically signed by Chantal [facility] Conversion Learning And Development Analyst Cerner at 06/16/2022 8:16 PM CDT documented in this encounter Plan of Treatment Not on file documented as of this encounter Visit Diagnoses Not on filedocumented in this encounter
--- OUTSIDE RECORDS SUMMARY | 2024-11-29 09:42 | XMS_ITS | Encounter Summary ---
Author Organization [employer] ([place], [place], [place], [place]) Address [address] [place] [address] Care Team Providers Care Hvac Design Mechanical Engineer Name Role Phone Unavailable Primary Care Provider Unavailabl e Encounter Details Date Type Department Care Team (Late st Contact Info) Description 07/07/2019 Transcribed Document [facility] Radiology [address] [place] [address] Jordan Barahona MD [address] [phone] Social History Tobacco Use Types Packs/Day Years [...] (JULY 02) Micro: [facility]: 06/15 [facility] Blood cultures positive for group B [...]
--- OUTSIDE RECORDS SUMMARY | 2024-11-29 09:42 | XMS_ITS | Encounter Summary ---
Author Organization [employer] ([place], [place], [place], [place]) Address [address] [place] [address] Care Team Providers Care Track Dresser Name Role Phone Unavailable Primary Care Provider Unavailabl e Encounter Details Date Type Department Care Team (Late st Contact Info) Description 07/19/2019 Transcribed Document [facility] [place] Family [place] [facility] [place] [address] ProviderMariela MD [address] [place] [address] Social History Tobacco Use [...] Marisela Rangel RN - 07/19/2019 14:03 EDT Electronically signed by Maureen Cornejo Conversion Clinical Psychologist Licensed Cerner at 06/16/2022 8:03 PM CDT documented in this encounter Plan of Treatment Not on file documented as of this encounter Visit Diagnoses Not on filedocumented in this encounter
--- OUTSIDE RECORDS SUMMARY | 2024-11-29 09:42 | XMS_ITS | Encounter Summary ---
Author Organization [employer] ([place], [place], [place], [place]) Address [address] [place] [address] Care Team Providers Care Staying Machine Operator Name Role Phone Unavailable Primary Care Provider Unavailabl e Encounter Details Date Type Department Care Team (Late st Contact Info) Description 07/08/2019 Transcribed Document [facility] [place] [facility] [place] [address] ProviderMariela MD [address] [place], [place] [phone] Social History Tobacco Use Types Packs/Day Years [...]
--- OUTSIDE RECORDS SUMMARY | 2024-11-29 09:42 | XMS_ITS | Encounter Summary ---
Author Organization [employer] ([place], [place], [place], [place]) Address [address] [place] [address] Care Team Providers Care Commercial Roofer Name Role Phone Unavailable Primary Care Provider Unavailabl e Encounter Details Date Type Department Care Team (Late st Contact Info) Description 07/07/2019 Transcribed Document [facility] [place] [facility] [place] [address] ProviderMariela MD [address] [place] [phone] Social History Tobacco Use Types Packs/Day Years [...] 0.9% 50 mL 2 Gram, IV Piggyback, [id number] cyanocobalamin 1,000 mcg tab 5,000 mcg 5 [...] Oral, Q4H fluticasone 0.05% nasal spray 2 [place], Nostrils Both, BID magnesium hydroxide 8% liq [...] % 25.0 % Lymph # 1.57 x10(3)/uL [place] % 12.1 % HI [place] # 0.76 K/uL [place]os % 4.8 % [...] % 23.0 % Lymph # 1.50 x10(3)/uL [place] % 12.3 % HI [place] # 0.80 K/uL Eos % 3.7 % [...] Refill(s) fluticasone 50 mcg/inh nasal spray: 2 [place], Nostrils Both, [place], BID, PRN Allergies, 0 Refill(s) furosemide 40 [...]
--- OUTSIDE RECORDS SUMMARY | 2024-11-29 09:42 | XMS_ITS | Encounter Summary ---
Author Organization [employer] ([place], [place], [place], [place]) Address [address] [place] [address] Care Team Providers Care Public Housing Manager Name Role Phone Unavailable Primary Care Provider Unavailabl e Encounter Details Date Type Department Care Team (Late st Contact Info) Description 07/19/2019 Transcribed Document [facility] [place] [facility] [place] [address] ProviderMariela MD [address] [place] [address] Social History Tobacco Use Types [...] provider. This is important. Medicines ??? Take yacx-nyn-rpdjufz and prescription medicines only as told by [...] 02/15/2006 Document Revised: 10/26/2018 Document Reviewed: 10/26/2018 Referral[employer]andy Interactive Patient Education ? 2019 [employer] Inc. How to Use a Knee Immobilizer [...] 02/01/2017 Elsevier Interactive Patient Education ? 2019 [employer] documented in this encounter Plan of Treatment Not on file documented as of this encounter Visit Diagnoses Not on filedocumented in this encounter
--- OUTSIDE RECORDS SUMMARY | 2024-11-29 09:42 | XMS_ITS | Encounter Summary ---
Author Organization [employer] ([place], [place], [place], [place]) Address [address] [place] [address] Care Team Providers Care Risk Assessor Name Role Phone Unavailable Primary Care Provider Unavailabl e Encounter Details Date Type Department Care Team (Late st Contact Info) Description 08/29/2018 Transcribed Document [facility] [place] [facility] [place] [address] ProviderMariela MD [address] [place] [address] Social History Tobacco Use Types Packs/Day [...] Date 08/29/18 Primary Care Provider NILA CHO, [facility] Discharge Diagnosis Status post total right [...] incision uncovered if it is completely dry. [place] out 2 weeks post op. 6) An [...] Home with Home Care Discharge Follow Up [facility] - SOLOMON MCCRACKEN PA-C - [...] 1-Time fluticasone 50 mcg/inh nasal spray 2 [place], PRN, Nostrils Both, BID gabapentin 300 mg [...]
--- OUTSIDE RECORDS SUMMARY | 2024-11-29 09:42 | XMS_ITS | Encounter Summary ---
Author Organization [employer] ([place], [place], [place], [place]) Address [address] [place] [address] Care Team Providers Care Learning Support Resource Room Teacher Name Role Phone Unavailable Primary Care Provider Unavailabl e Encounter Details Date Type Department Care Team (Late st Contact Info) Description 08/22/2020 Transcribed Document [facility] [place] [facility] [place] [address] ProviderMariela MD [facility] [place] [address] Social History Tobacco Use [...] EDT Chloraseptic Menthol 1.4% topical spray: 5 [place], Oral, [place], Q2H, PRN for Sore Throat, Routine, Start [...] EDT fluticasone 50 mcg/inh nasal spray: 2 [place], Nostrils Both, [place], BID, PRN for Allergies, Routine, Start 08/20/20 [...] Refill(s) fluticasone 50 mcg/inh nasal spray: 2 [place], Nostrils Both, [place], BID, PRN Allergies, 0 Refill(s) furosemide 40 [...] Oral, Daily fluticasone 0.05% nasal spray 2 [place], Nostrils Both, BID magnesium hydroxide 8% liq [...] Oral, Q4H phenol 1.4% throat spray 5 [place], Oral, Q2H promethazine 25 mg tab 12.5 [...] Close monitoring H&H. Ambulation. Fall risk precautions. shelter facility in a.m. if stable. documented in this encounter Plan of Treatment Not on file documented as of this encounter Visit Diagnoses Not on filedocumented in this encounter
--- OUTSIDE RECORDS SUMMARY | 2024-11-29 09:42 | XMS_ITS | Encounter Summary ---
Author Organization [employer] ([place], [place], [place], [place]) Address [address] [place] [address] Care Team Providers Care Auto Damage Adjuster Name Role Phone Unavailable Primary Care Provider Unavailabl e Encounter Details Date Type Department Care Team (Late st Contact Info) Description 08/29/2018 Transcribed Document [facility] [place] [address] [place] [address] ProviderMariela MD [address] [place], [place] [phone] Social History Tobacco Use Types Packs/Day Years [...]
--- OUTSIDE RECORDS SUMMARY | 2024-11-29 09:42 | XMS_ITS | Encounter Summary ---
Author Organization [employer] ([place], [place], [place], [place]) Address [address] [place] [address] Care Team Providers Care Health Director Name Role Phone Unavailable Primary Care Provider Unavailabl e Encounter Details Date Type Department Care Team (Late st Contact Info) Description 08/22/2020 Transcribed Document [facility] [place] [facility] [place] [facility] [place] [address] ProviderMariela MD [address] [place] [address] Social History Tobacco Use Types [...] orders. Went into pt room to supervisor production department fluids and pt asked her blood type. [...]
--- OUTSIDE RECORDS SUMMARY | 2024-11-29 09:42 | XMS_ITS | Encounter Summary ---
Author Organization [employer] ([place], [place], [place], [place]) Address [address] [place] [address] Care Team Providers Care Primary Special Educator Name Role Phone Unavailable Primary Care Provider Unavailabl e Encounter Details Date Type Department Care Team (Late st Contact Info) Description 07/18/2019 Transcribed Document [facility] [place] [facility] [place] [address] ProviderMariela MD [address] [place] [address] Social History Tobacco Use Types Packs/Day Years [...]
--- OUTSIDE RECORDS SUMMARY | 2024-11-29 09:42 | XMS_ITS | Encounter Summary ---
Author Organization [employer] ([place], [place], [place], [place]) Address [address] [place] [address] Care Team Providers Care Sign Out Clerk Name Role Phone Unavailable Primary Care Provider Unavailabl e Encounter Details Date Type Department Care Team (Late st Contact Info) Description 06/23/2019 Transcribed Document [facility] [place] [facility] [place] [address] ProviderMariela MD [address] [place] [address] Social History Tobacco Use Types Packs/Day [...] CHAY MOSER MARYPiedadBartolo - 06/24/2019 12:31 EDT Membership Advisor Goals, OT Other LTG Grid Goal #1 [...] CHAY MOSER OTR/Bartolo - 06/24/2019 12:31 EDT Electronically signed by Maureen Cornejo Conversion Intermediate School Teacher Cerner at 06/16/2022 8:30 PM CDT documented in this encounter Plan of Treatment Not on file documented as of this encounter Visit Diagnoses Not on filedocumented in this encounter
--- OUTSIDE RECORDS SUMMARY | 2024-11-29 09:42 | XMS_ITS | Encounter Summary ---
Author Organization [employer] ([place], [place], [place], [place]) Address [address] [place] [address] Care Team Providers Care Senior Communications Specialist Name Role Phone Unavailable Primary Care Provider Unavailabl e Encounter Details Date Type Department Care Team (Late st Contact Info) Description 08/22/2020 Transcribed Document [facility] [place] [facility] [place] [address] ProviderMariela MD [address] [place] [address] Social History Tobacco Use Types [...] Spiritual Care Spiritual Care Referred by : Community Affairs Manager initiated Reason for Visit : Initial Ministry [...] her situation. Invited her to request a awning hanger for further visits if she wants. Spiritual/Emotional Acuity : Low Spiritual Framework : Unknown [facility] Preference : Christian, Unknown JASON DÍAZ, Community Affairs Manager - 08/22/2020 13:08 EDT Electronically signed by [facility] Conversion Shingle Carrier Cerner at 06/16/2022 8:13 PM CDT documented in this encounter Plan of Treatment Not on file documented as of this encounter Visit Diagnoses Not on filedocumented in this encounter
--- OUTSIDE RECORDS SUMMARY | 2024-11-29 09:42 | XMS_ITS | Encounter Summary ---
Author Organization [employer] ([place], [place], [place], [place]) Address [address] [place] [address] Care Team Providers Care Collar Tacker Name Role Phone Unavailable Primary Care Provider Unavailabl e Encounter Details Date Type Department Care Team (Late st Contact Info) Description 07/07/2019 Transcribed Document [facility] [place] [facility] [place] [address] ProviderMariela MD [facility] [place] [id number] Social History Tobacco Use Types Packs/Day Years [...] 07/05/2019 EDT Interdisciplinary Rounds Participants : manager clinical applications, Dietitian, Pharmacist, Physical Therapy, Other: WOCN Interdisciplinary [...]
--- OUTSIDE RECORDS SUMMARY | 2024-11-29 09:42 | XMS_ITS | Encounter Summary ---
Author Organization [employer] ([place], [place], [place], [place]) Address [address] [place] [address] Care Team Providers Care Automotive Mechanical Engineer Name Role Phone Unavailable Primary Care Provider Unavailabl e Encounter Details Date Type Department Care Team (Late st Contact Info) Description 08/22/2020 Transcribed Document [facility] [place] [address] [place] [address] ProviderMariela MD [address] [place] [address] Social History Tobacco Use Types [...] Caitlyn Fallon Rn - 08/22/2020 4:25 EDT Electronically signed by Maureen Cornejo Conversion Internal Controls Specialist Cerner at 06/16/2022 8:27 PM CDT documented in this encounter Plan of Treatment Not on file documented as of this encounter Visit Diagnoses Not on filedocumented in this encounter
--- OUTSIDE RECORDS SUMMARY | 2024-11-29 09:42 | XMS_ITS | Encounter Summary ---
Author Organization [employer] ([place], [place], [place], [place]) Address [address] [place] [address] Care Team Providers Care Outpatient Program Coordinator Name Role Phone Unavailable Primary Care Provider Unavailabl e Encounter Details Date Type Department Care Team (Late st Contact Info) Description 07/19/2019 Transcribed Document [facility] Family Medicine [facility] [address] ProviderMariela MD [address] [place] [phone] Social History Tobacco Use Types Packs/Day Years [...] Tyrell Stock M.D. Admitting and discharging physician, [facility] medicine, Dr. Owens, Donna Jaffe M.D. Discharge [...] left total knee arthroplasty was admitted to [facility] with left total knee arthroplasty [...] Dr. Saenz. [facility]. During her hospitalization [...] to another lower level of care to snf facility. Basic Information Review of Systems Constitutional: [...] 0.9% 100 mL 2 Gram, IV Piggyback, [id number] cyanocobalamin 1,000 mcg tab 5,000 mcg 5 [...] Oral, Q4H fluticasone 0.05% nasal spray 2 [place], Nostrils Both, BID magnesium hydroxide 8% liq [...] 11:43:23 EDT Discharge: Start: T;N, Discharge to: Jail unit/facility. Diagnosis Chronic venous insufficiency - Discharge, [...] CLINICALLY STABLE AFEBRILE OK TO D/C TO CUSTODIAL FACILITY. Consultants agree with for her discharge. Patient is stable for discharge.. Orders Order Profile (Selected) Prescriptions Prescribed Avenal 7.5 mg-325 mg oral tablet: 1 Tab, [...] Refill(s) fluticasone 50 mcg/inh nasal spray: 2 [place], Nostrils Both, [place], BID, PRN Allergies, 0 Refill(s) lisinopril 10 [...]
--- OUTSIDE RECORDS SUMMARY | 2024-11-29 09:42 | XMS_ITS | Referral Summary ---
Author Organization [employer] ([place], [place], [place], [place]) Address [address] [place] [address] Care Team Providers Care Film Maker Name Role Phone Unavailable Primary Care [...]
--- OUTSIDE RECORDS SUMMARY | 2024-11-29 09:42 | XMS_ITS | Encounter Summary ---
Author Organization [employer] ([place], [place], [place], [place]) Address [address] [place] [address] Care Team Providers Care Car Spotter Name Role Phone Unavailable Primary Care Provider Unavailabl e Encounter Details Date Type Department Care Team (Late st Contact Info) Description 07/19/2019 Transcribed Document [facility] [place] [facility] [place] [address] ProviderMariela MD [address] [place] [phone] Social History Tobacco Use Types Packs/Day Years [...] Note : 07/19/2019 Discharge summary faxed to [facility] Medicare. Auth#[id number]. Care Management Note Report : СВЕТЛАНА WANG - 07/19/19 09:16:16 07/19/2019 Patient went to appointment with Dr. Saenz yesterday, came back with a follow-up appointment scheduled for 08/17/2019 @ 1590. СВЕТЛАНА WANG - 07/17/19 13:41:45 07/17/2019 Call received from Tati Erickson [facility], with approval for LTAC services. Last covered date 07/18/2019 with anticipated DC on 07/19/2019. Please fax DC summary on date of discharge. Auth#[id number]. СВЕТЛАНА WANG - 07/17/19 11:32:16 07/17/[address] Snyder (ID), he is in agreement to discharge to SNF on Wednesday, he would like for her to follow-up with the consulting ID (Dr. Stock) in 1 week upon discharge. TELEHEALTH appointment scheduled with Dr. Stock for 07/25/2019 @ 1600. [facility] will call Lexy to facilitate this visit. СВЕТЛАНА WANG - 07/17/19 10:32:31 07/17/2019 faxed clinical review the [facility] at [phone] to request approval for extended ltac services. Auth#[id number], awaiting approval. CM/Discharge plan attached to review. PEDRITO WANGLESPeterson - 07/17/19 09:06:05 07/17/[address] Jaffe's progress note, yahaira may be removed if okay with Dr. Saenz's office. Per our WOCN, Dr. Saenz's office said they need to see her before they make that decision. Appt scheduled for tomorrow, 07/18/2019 @ 1415; [facility] round-trip transport scheduled for 1315 pick-up ([id number]). Spoke with Lexy Valdez, they have not yet began the patient's insurance preauth, they will today, and be ready to admit on Wednesday. Dr. Jaffe notified and in agreement. [facility] rescheduled for discharge 07/19/2019 @ 1400 ([id number]). YAONNA ARAUJO RN - 07/14/19 15:41:31 Yoanna Araujo 07/13/2019 1500 - patient has accepted bed offer at [facility], she will be transported on WednesdayJuly 16 at 2pm by [facility] Confirmation # [id number]. She declined the bed offer at [facility]. Dr. Jaffe notified of discharge plan. YOANNA ARAUJO RN - 07/13/19 14:37:44 Yoanna Araujo 07/13/2019 1400 received call from Ratna with [facility] offering patient a bed, Received call from Isabelle with [facility] she is looking at patient and needed a current height and weight. Still waiting to see if any other bed offers come through. I also sent referral to [facility]. YOANNA ARAUJO RN - 07/13/19 11:04:03 Yoanna Araujo 07/13/2019 1100 faxed out referral for placement for patient to [facility] nursing and rehab, [facility] Awaiting call backs. СВЕТЛАНА WANG - 07/12/19 12:19:17 07/12/2019 Fax received from [facility] with approval for LTAC services with a request for updated discharge plans and clinical info to support needs if not discharged. Auth#[id number]. Clinical review or discharge summary to be faxed by 07/17/2019. YOANNA ARAUJO RN - 07/12/19 08:39:48 Yoanna Arajuo 07/12/2019 0830 - faxed clinical review the [facility] at [phone] to request approval for extended ltac services. Auth#[id number], awaiting approval. YOANNA ARAUJO RN - 06/29/19 [...] health and she has been to the [facility] and [facility] in the past. She has the following equipment at home: wheel chair, walker, cane and shower chair. Her discharge plan is to go to rehab prior to returning home. PCP: Flavia MARQUEZ [facility] [place] [phone] Cattle Knocker: Dr. Shemar Barger [phone] Clemente Del Rio MD - Rheumatology - [address] [place] [address] Preferences: Home Health: [facility]: no preferences DME: [facility] - [address], [place] [address] Nursing Home: [facility] facility: no preferences Will continue to monitor patient for anticipated discharge needs YOANNA ARAUJO, RN - 06/29/19 08:30:20 Yoanna Araujo 06/29/2019 0830 received fax from [facility] with approval for extended ltac coverage with next clinical review due on 07/12/2019. Auth#[id number]. Will continue to follow for anticipated discharge needs. YOANNA ARAUJO RN - 06/28/19 08:35:06 Yoanna Araujo 06/28/2019 0830 Faxed clinical review to [facility] at to request approval for extended Ltac services. Auth#[id number]. Pending Approval. Documentation Status Complete : Yes СВЕТЛАНА WANG - 07/19/2019 14:40 EDT documented in this encounter Plan of Treatment Not on file documented as of this encounter Visit Diagnoses Not on filedocumented in this encounter
--- OUTSIDE RECORDS SUMMARY | 2024-11-29 09:42 | XMS_ITS | Encounter Summary ---
Author Organization [employer] ([place], [place], [place], [place]) Address [address] [place] [address] Care Team Providers Care Webbing Inspector Name Role Phone Unavailable Primary Care Provider Unavailabl e Encounter Details Date Type Department Care Team (Late st Contact Info) Description 06/23/2019 Transcribed Document [facility] [place] [address] [place] [address] ProviderMariela MD [address] [place], [place] [phone] Social History Tobacco Use Types Packs/Day Years [...]
--- OUTSIDE RECORDS SUMMARY | 2024-11-29 09:42 | XMS_ITS | Encounter Summary ---
Author Organization [employer] ([place], [place], [place], [place]) Address [address] [place] [address] Care Team Providers Care Pain Management Nurse Name Role Phone Unavailable Primary Care Provider Unavailabl e Encounter Details Date Type Department Care Team (Late st Contact Info) Description 08/22/2020 Transcribed Document [facility] [place] [facility] [address] ProviderMariela MD [address] [place] [address] Social History Tobacco Use Types [...] Historical ProviderMD - 08/22/2020 2:00 AM CDT Museum Security Chief Details Entered On: 08/22/2020 0:01 EDT Performed [...]
--- OUTSIDE RECORDS SUMMARY | 2024-11-29 09:42 | XMS_ITS | Encounter Summary ---
Author Organization [employer] ([place], [place], [place], [place]) Address [address] [place] [address] Care Team Providers Care Inspector Technician Name Role Phone Unavailable Primary Care Provider Unavailabl e Encounter Details Date Type Department Care Team (Late st Contact Info) Description 06/16/2019 Transcribed Document [facility] [place] [address] [place] [address] ProviderMariela MD [address] [place] [address] Social History Tobacco Use Types Packs/Day Years [...]
--- OUTSIDE RECORDS SUMMARY | 2024-11-29 09:42 | XMS_ITS | Encounter Summary ---
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
--- OUTSIDE RECORDS SUMMARY | 2024-11-29 09:42 | XMS_ITS | Encounter Summary ---
Author Organization [employer] ([place], [place], [place], [place]) Address [address] [place] [address] Care Team Providers Care Flavoring Maker Name Role Phone Unavailable Primary Care Provider Unavailabl e Encounter Details Date Type Department Care Team (Late st Contact Info) Description 08/22/2020 Transcribed Document [facility] [place] [address] [place] [address] ProviderMariela MD [address] [place] [address] Social History Tobacco Use Types [...] 08/22/2020 18:40 EDT Electronically signed by Chantal [facility] Conversion Calender Let Off Operator Cerbryce at 06/16/2022 8:18 PM CDT documented in this encounter Plan of Treatment Not on file documented as of this encounter Visit Diagnoses Not on filedocumented in this encounter
--- OUTSIDE RECORDS SUMMARY | 2024-11-29 09:42 | XMS_ITS | Encounter Summary ---
Author Organization [employer] ([place], [place], [place], [place]) Address [address] [place] [address] Care Team Providers Care Adjunct Faculty Mathematics Department Name Role Phone Unavailable Primary Care Provider Unavailabl e Encounter Details Date Type Department Care Team (Late st Contact Info) Description 07/08/2019 Transcribed Document [facility] [place] [facility] [place] [address] ProviderMariela MD [address] [place] [address] Social History Tobacco Use Types Packs/Day Years [...] Historical ProviderMD - 07/08/2019 2:00 AM CDT Bus And Trolley Inspecting Dispatcher Details Entered On: 07/08/2019 3:22 EDT Performed [...] 07/08/2019 3:22 EDT Electronically signed by Chantal [facility] Conversion Fur Finisher Tailor Cerner at 06/16/2022 8:06 PM CDT documented in this encounter Plan of Treatment Not on file documented as of this encounter Visit Diagnoses Not on filedocumented in this encounter
--- OUTSIDE RECORDS SUMMARY | 2024-11-29 09:42 | XMS_ITS | Encounter Summary ---
Author Organization [employer] ([place], [place], [place], [place]) Address [address] [place] [address] Care Team Providers Care Cloth Painter Name Role Phone Unavailable Primary Care Provider Unavailabl e Encounter Details Date Type Department Care Team (Late st Contact Info) Description 08/29/2018 Transcribed Document [facility] [place] [address] ProviderMariela MD [facility] [place], [place] [phone] Social History Tobacco Use Types Packs/Day Years [...] time of discharge from hospital to the [place], pt had met 0/2 acute care goals as she was discharged to rehab the same day as the PT evaluation. Pt was independent with bed mobility and transfers. CHAITANYA SIMON, PT - 09/03/2018 9:58 EDT Assisted Goals Other PT LTG Grid [...]
--- OUTSIDE RECORDS SUMMARY | 2024-11-29 09:43 | XMS_ITS | Encounter Summary ---
Author Organization [employer] ([place], [place], [place], [place]) Address [address] [place] [address] Care Team Providers Care Phonograph Cartridge Assembler Name Role Phone Unavailable Primary Care Provider Unavailabl e Encounter Details Date Type Department Care Team (Late st Contact Info) Description 06/16/2019 Transcribed Document [facility] [place] [facility] [place] [address] ProviderMariela MD [address] [place] [address] Social History Tobacco Use Types Packs/Day Years [...] Svitlana Ugarte RN - 06/17/2019 2:08 EDT Electronically signed by Maureen Cornejo Conversion Manufacturing Engineer Chief Cerner at 06/16/2022 8:16 PM CDT documented in this encounter Plan of Treatment Not on file documented as of this encounter Visit Diagnoses Not on filedocumented in this encounter
--- OUTSIDE RECORDS SUMMARY | 2024-11-29 09:43 | XMS_ITS | Encounter Summary ---
Author Organization [employer] ([place], [place], [place], [place]) Address [address] [place] [address] Care Team Providers Care Senior Financial Name Role Phone Unavailable Primary Care Provider Unavailabl e Encounter Details Date Type Department Care Team (Late st Contact Info) Description 06/17/2019 Transcribed Document [facility] [place] [facility] [place] [address] ProviderMariela [place] [address] Social History Tobacco Use Types [...] 1940 Associated Diagnoses: None Author: ROJELIO NUNEZ, [facility] Pharmacy Note: Vancomycin per Pharmacy Clinical Pharmacy [...]
--- OUTSIDE RECORDS SUMMARY | 2024-11-29 09:43 | XMS_ITS | Encounter Summary ---
Author Organization [employer] ([place], [place], [place], [place]) Address [address] [place] [address] Care Team Providers Care Pressed Or Blown Glass Worker Name Role Phone Unavailable Primary Care Provider Unavailabl e Encounter Details Date Type Department Care Team (Late st Contact Info) Description 06/28/2019 Transcribed Document [facility] [place] [address] [place] [address] ProviderMariela MD [address] [place] [address] Social History Tobacco Use Types Packs/Day Years [...] Araujo 06/28/2019 0830 Faxed clinical review to [facility] at to request approval for extended Ltac services. Auth#[id number]. Pending Approval. Documentation Status Complete : Yes YOANNA ARAUJO RN - 06/28/2019 8:33 EDT Electronically signed by Chantal [facility] Conversion Quality Assurance Consultant Cerner at 06/16/2022 8:09 PM CDT documented in this encounter Plan of Treatment Not on file documented as of this encounter Visit Diagnoses Not on filedocumented in this encounter
--- OUTSIDE RECORDS SUMMARY | 2024-11-29 09:43 | XMS_ITS | Encounter Summary ---
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 Rx to follow, Chrissy Henderson, PharmD [phone] documented in this encounter Plan of Treatment Not on file documented as of this encounter Visit Diagnoses Not on filedocumented in this encounter
--- OUTSIDE RECORDS SUMMARY | 2024-11-29 09:43 | XMS_ITS | Encounter Summary ---
Author Organization [employer] ([place], [place], [place], [place]) Address [address] [place] [address] Care Team Providers Care Seater Assembler Name Role Phone Unavailable Primary Care Provider Unavailabl e Encounter Details Date Type Department Care Team (Late st Contact Info) Description 06/24/2019 Transcribed Document [facility] [place] [facility] [place] [address] ProviderMariela MD [address] [place] [address] Social History Tobacco Use Types Packs/Day [...] On: 06/24/2019 13:47 EDT by Halima Tripathi RN-LOCKSTITCH COLLAR SETTERfood cashier Progress Note Discharge Arrangements : Patient Post-Acute [...] Attend Multidisciplinary Rounds? : No Halima Tripathi RN-LOCKSTITCH COLLAR SETTER - 06/24/2019 13:47 EDT Narrative Progress Note Narrative Progress Note : Per ID note of 06/22: continue ceftriaxone 2 gm daily and plan on 8 weeks of therapy with PICC line in lifelong oral suppression. Otherwise, patient has been accepted by [facility] and we are awaiting bed availability, likely next week. CM will continue to follow. Historical Progress Note : RECEIVED CALL FROM [facility] WITH [facility]..PATIENT HAS BEEN ACCEPTED AND THEY WILL HAVE A BED SOMETIME NEXT WEEK..CM WILL CONTINUE TO FOLLOW AND INFORM DR DRIVER OF THE ABOVE..DEBORAH BENAVIDEZ RN-Senior Test Engineer - 06/23/19 11:45:46 RECEIVED CALL FROM [place] WITH [facility]..PATIENT HAS BEEN ACCEPTED AND THEY WILL HAVE A BED SOMETIME NEXT WEEK..CM WILL CONTINUE TO FOLLOW AND INFORM DR DRIVER OF THE ABOVE..STEPHANIE SPOKE WITH PT AT BEDSIDE AND SHE IS AWARE THAT L-TACH HAS STARTED A PRECERT AND HOPEFULLY WILL HAVE BED AVAILABLE ON WEDNESDAY PENDING AUTHORIZATION..DR DRIVER AWARE..DEBORAH BENAVIDEZ RN-Senior Test Engineer - 06/23/19 17:11:55 Sent referral to LTACH through [facility]..........MIKE Adam RN-Senior Test Engineer - 06/21/19 16:57:54 Was planning for AKA, now patient will undergo a total joint revision with I&D. Will continue to follow.............MIKE Adam RN-Senior Test Engineer - 06/21/19 16:36:10 PICC line placed, Per LID, plan for chcf IV abx. Surgery scheduled for today................MIKE Adam RN-Senior Test Engineer - 06/21/19 10:06:05 No MDR this AM with provider. Patient with low-grade fever this AM and throughout the night. COTY was rescheduled for 06/20 for this reason. CM will continue to follow. Halima Tripathi, EDDIE-LOCKSTITCH COLLAR SETTER - 06/20/19 11:50:51 Patient becoming more agitated and confused, refusing to wear oxygen. Patient now on CPAP, WBC increased, BC x2 positive for group b Strep. Dr Saenz to perform AKA tomorrow morning. Will continue to follow..............sds MIKE FRIEDMAN, EDDIE-Senior Test Engineer - 06/19/19 11:35:19 Halima Tripathi RN-LOCKSTITCH COLLAR SETTER - 06/24/2019 13:47 EDT documented in this encounter Plan of Treatment Not on file documented as of this encounter Visit Diagnoses Not on filedocumented in this encounter
--- OUTSIDE RECORDS SUMMARY | 2024-11-29 09:43 | XMS_ITS | Encounter Summary ---
Author Organization [employer] ([place], [place], [place], [place]) Address [address] [place] [address] Care Team Providers Care Fisher Terrapin Name Role Phone Unavailable Primary Care Provider Unavailabl e Encounter Details Date Type Department Care Team (Late st Contact Info) Description 06/27/2019 Transcribed Document [facility] [place] [facility] [place] [address] ProviderMariela MD [address] [place] [address] Social History Tobacco Use Types Packs/Day Years [...] HENDERSON PharmD, BCPS - 06/27/2019 10:09 EDT documented in this encounter Plan of Treatment Not on file documented as of this encounter Visit Diagnoses Not on filedocumented in this encounter
--- OUTSIDE RECORDS SUMMARY | 2024-11-29 09:43 | XMS_ITS | Encounter Summary ---
Author Organization [employer] ([place], [place], [place], [place]) Address [address] [place] [address] Care Team Providers Care Translator And Interpreter Name Role Phone Unavailable Primary Care Provider Unavailabl e Encounter Details Date Type Department Care Team (Late st Contact Info) Description 06/16/2019 Transcribed Document [facility] [place] [facility] [place] [address] ProviderMariela MD [address] [place] [phone] Social History Tobacco Use Types Packs/Day Years [...] Bed Legal Guardian : No Support Person/Patient Engineering Systems Analyst : Yes Support Person/Pt Rep Name : Sam Rust Yen Contact Password : Keily Support Person/Pt Rep Contact Information : son (Sam) [phone] (Nancy Rust [phone] Want Family/Rep/Phys Notified of Admit : No [...] Obtained From : Patient Primary Language : Belarusian Preferred Communication Mode : Verbal Communication Barrier [...] Level : 46 or > High Risk [place] Fall Interventions : Adequate lighting, Assistive devices [...] Source : Stated Height Entry Format : [place] Height, Feet : 4 ft(Converted to: 122 cm, 48 Inch) Height, Inches : 11 Inch(Converted to: 0 ft 11 Inch, 27.94 cm) Clinical Height : 149.86 cm Weight Source : Bed scale Weight Entry Format : [place] Clinical Dosing Weight : 91.82 kg Weight, Pounds : 202 lb Body Surface Area (BSA) : 1.85 m2 Body Mass Index : 40.9 kg/m2 (>HHI) [place] Body Weight : 43 kg Svitlana Ugarte [...] Svitlana Ugarte RN - 06/17/2019 0:08 EDT Thomas Suicide Severity Rating Scale (C-SSRS) CSSRS Past [...] RN - 06/17/2019 0:08 EDT Spiritual/Cultural Needs Faith Preference : Faith Svitlana Ugarte RN - 06/17/2019 0:08 EDT [...] Svitlana Ugarte RN - 06/17/2019 0:08 EDT Electronically signed by Maureen Cornejo Conversion Customer Service Sales Consultant Cerner at 06/16/2022 8:25 PM CDT documented in this encounter Plan of Treatment Not on file documented as of this encounter Visit Diagnoses Not on filedocumented in this encounter
--- OUTSIDE RECORDS SUMMARY | 2024-11-29 09:43 | XMS_ITS | Encounter Summary ---
Author Organization [employer] ([place], [place], [place], [place]) Address [address] [place] [address] Care Team Providers Care Department Chair Name Role Phone Unavailable Primary Care Provider Unavailabl e Encounter Details Date Type Department Care Team (Late st Contact Info) Description 06/28/2019 Transcribed Document [facility] [place] [facility] [address] ProviderMariela MD [facility] [place] [address] Social History Tobacco Use Types [...] 26) ALB L 2.4 (JUN 26) Micro: [facility]: 06/15 [facility] Blood cultures positive for group [...]
--- OUTSIDE RECORDS SUMMARY | 2024-11-29 09:43 | XMS_ITS | Encounter Summary ---
Author Organization [employer] ([place], [place], [place], [place]) Address [address] [place] [address] Care Team Providers Care Cement Handler Name Role Phone Unavailable Primary Care Provider Unavailabl e Encounter Details Date Type Department Care Team (Late st Contact Info) Description 07/12/2019 Transcribed Document [facility] [place] [facility] [place] [address] ProviderMariela MD [address] [place] [place], [place] [phone] Social History Tobacco Use Types Packs/Day Years [...] Historical ProviderMD - 07/12/2019 2:00 AM CDT Aquatic Director Details Entered On: 07/12/2019 4:38 EDT Performed [...] 07/12/2019 4:37 EDT Electronically signed by Chantal [facility] Conversion [employer] Membership Advisors Cerner at 06/16/2022 8:29 PM CDT documented in this encounter Plan of Treatment Not on file documented as of this encounter Visit Diagnoses Not on filedocumented in this encounter
--- OUTSIDE RECORDS SUMMARY | 2024-11-29 09:43 | XMS_ITS | Encounter Summary ---
Author Organization [employer] ([place], [place], [place], [place]) Address [address] [place] [address] Care Team Providers Care Duplicator Punch Operator Name Role Phone Unavailable Primary Care Provider Unavailabl e Encounter Details Date Type Department Care Team (Late st Contact Info) Description 08/22/2018 Transcribed Document [facility] [place] Family Medicine [facility] [place] [address] ProviderMariela MD [address] [place] [address] Social History Tobacco Use Types Packs/Day [...]
--- OUTSIDE RECORDS SUMMARY | 2024-11-29 09:43 | XMS_ITS | Encounter Summary ---
Author Organization [employer] ([place], [place], [place], [place]) Address [address] [place] [address] Care Team Providers Care Electromechanical Equipment Tester Name Role Phone Unavailable Primary Care Provider Unavailabl e Encounter Details Date Type Department Care Team (Late st Contact Info) Description 06/16/2019 Transcribed Document [facility] [place] [address] [place] [address] ProviderMariela MD [address] [place] [address] Social History Tobacco Use Types Packs/Day Years [...]
--- OUTSIDE RECORDS SUMMARY | 2024-11-29 09:43 | XMS_ITS | Encounter Summary ---
Author Organization [employer] ([place], [place], [place], [place]) Address [address] [place] [address] Care Team Providers Care Rn Placement Name Role Phone Unavailable Primary Care Provider Unavailabl e Encounter Details Date Type Department Care Team (Late st Contact Info) Description 06/24/2019 Transcribed Document [facility] [place] [facility] [place] [address] ProviderMariela MD [address] [place] [address] Social History Tobacco Use Types Packs/Day Years [...] Historical ProviderMD - 06/24/2019 2:00 AM CDT Rib Chopper Details Entered On: 06/24/2019 3:32 EDT Performed [...]
--- OUTSIDE RECORDS SUMMARY | 2024-11-29 09:43 | XMS_ITS | Encounter Summary ---
Author Organization [employer] ([place], [place], [place], [place]) Address [address] [place] [address] Care Team Providers Care Bucket Operator Name Role Phone Unavailable Primary Care Provider Unavailabl e Encounter Details Date Type Department Care Team (Late st Contact Info) Description 06/27/2019 Transcribed Document [facility] [place] [facility] [place] [address] ProviderMariela MD [address] [place] [phone] Social History Tobacco Use Types Packs/Day Years [...] disease: Tyrell Stock M.D. Admitting physician : [facility] medicine, internal medicine, Donna Jaffe M.D. Admitting [...] infection and recurrent falls, was admitted to [facility] with a periprosthetic Left knee infection. Initially [...] please see discharge summary and H&P from [facility].} Postoperative Information Patient had surgery today and [...] BID fluticasone 50 mcg/inh nasal spray 2 [place], PRN, Nostrils Both, BID furosemide 40 mg [...] 0.9% 50 mL 2 Gram, IV Piggyback, [id number] cyanocobalamin 1,000 mcg tab 5,000 mcg 5 Tab, Oral, Daily DULoxetine DR 60 mg cap 60 mg 1 Cap, Oral, Daily enoxaparin 40 mg/0.4 mL inj 40 mg 0.4 mL, SubCutaneous, [id number] fluconazole 100 mg tab 100 mg 1 [...] fluticasone 0.05% nasal spray 100 mcg 2 [place], Nostrils Both, BID magnesium hydroxide 8% liq [...] left knee pain and swelling. Integumentary: Warm, Elaine, Intact, No pallor, No rash, left knee [...] % 20.8 % Lymph # 2.21 x10(3)/uL [place] % 9.4 % HI [place] # 1.00 K/uL Eos % 2.6 % [...] % 24.4 % Lymph # 2.42 K/uL [place] % 8.7 % [place] # 0.86 K/uL HI Eos % 2.5 [...] supplement and support. Electronically signed by Chantal [facility] Conversion Physical Therapist Center Manager Cerner at 06/16/2022 8:24 PM CDT documented in this encounter Plan of Treatment Not on file documented as of this encounter Visit Diagnoses Not on filedocumented in this encounter
--- OUTSIDE RECORDS SUMMARY | 2024-11-29 09:43 | XMS_ITS | Encounter Summary ---
Author Organization [employer] ([place], [place], [place], [place]) Address [address] [place] [address] Care Team Providers Care Material Stockkeeper Yard Name Role Phone Unavailable Primary Care Provider Unavailabl e Encounter Details Date Type Department Care Team (Late st Contact Info) Description 06/27/2019 Transcribed Document [facility] [place] [facility] [place] [address] [place] [address] ProviderMariela MD [address] [place], [place] [phone] Social History Tobacco Use Types Packs/Day Years [...] by Chantal [facility] Conversion Cutter Inspector Min at 06/16/2022 8:28 PM CDT documented in this encounter Plan of Treatment Not on file documented as of this encounter Visit Diagnoses Not on filedocumented in this encounter
--- OUTSIDE RECORDS SUMMARY | 2024-11-29 09:43 | XMS_ITS | Encounter Summary ---
Author Organization [employer] ([place], [place], [place], [place]) Address [address] [place] [address] Care Team Providers Care Pinsetter Mechanic Automatic Name Role Phone Unavailable Primary Care Provider Unavailabl e Encounter Details Date Type Department Care Team (Late st Contact Info) Description 08/30/2018 Transcribed Document [facility] [place] [facility] [place] [address] ProviderMariela MD [facility] [place], [place] [phone] Social History Tobacco Use Types Packs/Day Years [...] : Insurance 1 Health Plan: [facility] MEDICARE ADVANTAGE Policy Number: [id number] Authorization Number: [id number] Insurance Primary Name : U[employer] medicare advantage [id number] Authorization Status-Primary : Admit approved Reference Number-Primary : [id number] Authorization Number-Primary : [id number] Authorized Service Begin Date-Primary : 08/22/2018 EDT Authorized Service End Date-Primary : 08/29/2018 EDT Authorization Comments-Primary : [facility] approved per website Historical Authorization Comments-Primary : Comment 1: Clinicals faxed to [facility] via [employer] (Jett Arroyo Mkt Optical Fabricator-Utilization Mgt 08/23/2018 09:50) TIESHA AQUINO RN-Utilization Review - 08/30/2018 12:06 EDT documented in this encounter Plan of Treatment Not on file documented as of this encounter Visit Diagnoses Not on filedocumented in this encounter
--- OUTSIDE RECORDS SUMMARY | 2024-11-29 09:43 | XMS_ITS | Encounter Summary ---
Author Organization [employer] ([place], [place], [place], [place]) Address [address] [place] [address] Care Team Providers Care Imaging System Administrator Name Role Phone Unavailable Primary Care Provider Unavailabl e Encounter Details Date Type Department Care Team (Late st Contact Info) Description 08/31/2018 Transcribed Document [facility] [place] [facility] [place] [address] ProviderMariela MD [address] [place] [address] Social History Tobacco Use Types Packs/Day Years [...] Jazmin Taylor Rn - 08/31/2018 12:18 EDT documented in this encounter Plan of Treatment Not on file documented as of this encounter Visit Diagnoses Not on filedocumented in this encounter
--- OUTSIDE RECORDS SUMMARY | 2024-11-29 09:43 | XMS_ITS | Encounter Summary ---
Author Organization [employer] ([place], [place], [place], [place]) Address [address] [place] [address] Care Team Providers Care Outside Plant Technician Name Role Phone Unavailable Primary Care Provider Unavailabl e Encounter Details Date Type Department Care Team (Late st Contact Info) Description 06/16/2019 Transcribed Document [facility] [place] [facility] [place] [address] ProviderMariela MD [address] [place] [address] Social History Tobacco Use Types Packs/Day [...] form. Electronically signed by Interface, Maureen Conversion Retail Project Merchandiser Cerner at 06/16/2022 8:07 PM CDT documented in this encounter Plan of Treatment Not on file documented as of this encounter Visit Diagnoses Not on filedocumented in this encounter
--- OUTSIDE RECORDS SUMMARY | 2024-11-29 09:43 | XMS_ITS | Encounter Summary ---
Author Organization [employer] ([place], [place], [place], [place]) Address [address] [place] [address] Care Team Providers Care Urban Redevelopment Specialist Name Role Phone Unavailable Primary Care Provider Unavailabl e Encounter Details Date Type Department Care Team (Late st Contact Info) Description 07/12/2019 Transcribed Document [facility] Radiology [address] [place] [address] Shawanda Barahona MD [address] [phone] Social History Tobacco Use Types Packs/Day Years Used Date Smoking Tobacco: Never Assessed Comments Unknown Sex and Gender Information Value Date Recorded Sex Assigned at Female 09/02/2021 8:57 PM CDT Legal Sex Female 6:58 PM CDT Gender Identity Female 09/02/2021 8:57 PM CDT Sexual Orientation Not on file documented as of this encounter Miscellaneous Notes * Cerner Conversion Note - Shawadna Barahona MD - 07/12/2019 4:35 PM EDT [...] (JULY 06) L 2.9 (JULY 05) Micro: [facility]: 06/15 [facility] Blood cultures positive for group [...]
--- OUTSIDE RECORDS SUMMARY | 2024-11-29 09:43 | XMS_ITS | Encounter Summary ---
Author Organization [employer] ([place], [place], [place], [place]) Address [address] [place] [address] Care Team Providers Care Software Quality Specialist Name Role Phone Unavailable Primary Care Provider Unavailabl e Encounter Details Date Type Department Care Team (Late st Contact Info) Description 07/13/2019 Transcribed Document [facility] [place] Family Medicine [address] [place] [address] ProviderMariela MD [address], [place] [phone] Social History Tobacco Use Types Packs/Day Years [...]
--- OUTSIDE RECORDS SUMMARY | 2024-11-29 09:43 | XMS_ITS | Encounter Summary ---
Author Organization [employer] ([place], [place], [place], [place]) Address [address] [place] [address] Care Team Providers Care Telephone Lineman Name Role Phone Unavailable Primary Care Provider Unavailabl e Encounter Details Date Type Department Care Team (Late st Contact Info) Description 07/13/2019 Transcribed Document [facility] [place] [facility] [place] [address] ProviderMariela MD [address] [place] [address] Social History Tobacco Use Types Packs/Day Years [...]
--- OUTSIDE RECORDS SUMMARY | 2024-11-29 09:43 | XMS_ITS | Encounter Summary ---
Author Organization [employer] ([place], [place], [place], [place]) Address [address] [place] [address] Care Team Providers Care Wood Heel Flap Trimmer Name Role Phone Unavailable Primary Care Provider Unavailabl e Encounter Details Date Type Department Care Team (Late st Contact Info) Description 06/28/2019 Transcribed Document [facility] [place] [facility] [place] [address] ProviderMariela MD [address] [place] [address] Social History Tobacco Use Types Packs/Day [...] 0.9% 50 mL 2 Gram, IV Piggyback, [id number] cyanocobalamin 1,000 mcg tab 5,000 mcg 5 [...] fluticasone 0.05% nasal spray 100 mcg 2 [place], Nostrils Both, BID magnesium hydroxide 8% liq [...] % 20.8 % Lymph # 2.21 x10(3)/uL [place] % 9.4 % HI [place] # 1.00 K/uL Eos % 2.6 % [...]
--- OUTSIDE RECORDS SUMMARY | 2024-11-29 09:43 | XMS_ITS | Encounter Summary ---
Author Organization [employer] ([place], [place], [place], [place]) Address [address] [place] [address] Care Team Providers Care Com Writer Name Role Phone Unavailable Primary Care Provider Unavailabl e Encounter Details Date Type Department Care Team (Late st Contact Info) Description 06/27/2019 Transcribed Document [facility] [place] [facility] [place] [address] ProviderMariela MD [address] [place] [address] Social History Tobacco Use Types Packs/Day Years [...] Historical ProviderMD - 06/27/2019 2:00 AM CDT Textiles And Clothing Teacher Details Entered On: 06/27/2019 3:56 EDT Performed [...]
--- OUTSIDE RECORDS SUMMARY | 2024-11-29 09:43 | XMS_ITS | Encounter Summary ---
Author Organization [employer] ([place], [place], [place], [place]) Address [address] [place] [address] Care Team Providers Care Paddle Dyeing Machine Operator Name Role Phone Unavailable Primary Care Provider Unavailabl e Encounter Details Date Type Department Care Team (Late st Contact Info) Description 06/16/2019 Transcribed Document [facility] [place] [facility] [place] [address] ProviderMariela MD [address] [place] [address] Social History Tobacco Use Types Packs/Day Years [...] On: 06/16/2019 21:08 EDT by Dylan Alvarez GUIDE ESCORT LEAD Meds to Bed Enrollment Patient Enrollment Decision: : No/do not enroll in meds to bed program Reason for Declining Meds to Bed Program: : Other: NA Dylan Alvarez GUIDE ESCORT LEAD - 06/19/2019 12:37 EDT documented in this encounter Plan of Treatment Not on file documented as of this encounter Visit Diagnoses Not on filedocumented in this encounter
--- OUTSIDE RECORDS SUMMARY | 2024-11-29 09:43 | XMS_ITS | Encounter Summary ---
Author Organization [employer] ([place], [place], [place], [place]) Address [address] [place] [address] Care Team Providers Care Vehicle Operator Technician Name Role Phone Unavailable Primary Care Provider Unavailabl e Encounter Details Date Type Department Care Team (Late st Contact Info) Description 06/24/2019 Transcribed Document [facility] [place] [facility] [place] [address] ProviderMariela MD [facility] [place] [address] Social History Tobacco [...] (JUN 21) L 1.7 (JUN 19) Micro: [facility]: 06/15 [facility] Blood cultures positive for group B strep and 2/2 bottles SJE: 06/16 fluid aspiration of left knee shows 118,150 white blood cells, GPC 06/16 repeat blood cultures with Group B Strep 06/16 MRSA surveillance culture and pro/pending 06/16 Urine culture in process/pending Rad: Radiology Results (Last 48 hours) [id number] -- 06/16/2019 21:08 CR Knee 1 or [...] - wbc down and no fevers continue exterminator abx will monitor documented in this encounter Plan of Treatment Not on file documented as of this encounter Visit Diagnoses Not on filedocumented in this encounter
--- OUTSIDE RECORDS SUMMARY | 2024-11-29 09:43 | XMS_ITS | Encounter Summary ---
Author Organization [employer] ([place], [place], [place], [place]) Address [address] [place] [address] Care Team Providers Care Therapist Asst Name Role Phone Unavailable Primary Care Provider Unavailabl e Encounter Details Date Type Department Care Team (Late st Contact Info) Description 07/13/2019 Transcribed Document [facility] [place] [facility] [place] [address] ProviderMariela MD [address] [place] [phone] Social History Tobacco Use Types Packs/Day Years [...] 0.9% 50 mL 2 Gram, IV Piggyback, [id number] cyanocobalamin 1,000 mcg tab 5,000 mcg 5 [...] Oral, Q4H fluticasone 0.05% nasal spray 2 [place], Nostrils Both, BID magnesium hydroxide 8% liq [...] ulcer prophylaxis. Anticipate DC to snf Wednesday. documented in this encounter Plan of Treatment Not on file documented as of this encounter Visit Diagnoses Not on filedocumented in this encounter
--- OUTSIDE RECORDS SUMMARY | 2024-11-29 09:43 | XMS_ITS | Encounter Summary ---
Author Organization [employer] ([place], [place], [place], [place]) Address [address] [place] [address] Care Team Providers Care Tray Drier Name Role Phone Unavailable Primary Care Provider Unavailabl e Encounter Details Date Type Department Care Team (Late st Contact Info) Description 06/16/2019 Transcribed Document [facility] [place] [facility] [place] [address] ProviderMariela MD [address] [place] [address] Social History Tobacco Use Types Packs/Day [...]
--- OUTSIDE RECORDS SUMMARY | 2024-11-29 09:43 | XMS_ITS | Encounter Summary ---
Author Organization [employer] ([place], [place], [place], [place]) Address [address] [place] [address] Care Team Providers Care Milk Inspector Name Role Phone Unavailable Primary Care Provider Unavailabl e Encounter Details Date Type Department Care Team (Late st Contact Info) Description 06/28/2019 Transcribed Document [facility] [place] [address] [place] [address] ProviderMariela MD [address], [place] [phone] Social History Tobacco Use Types Packs/Day Years [...]
--- OUTSIDE RECORDS SUMMARY | 2024-11-29 09:44 | XMS_ITS | Encounter Summary ---
Author Organization [employer] ([place], [place], [place], [place]) Address [address] [place] [address] Care Team Providers Care Customer Service Associate Name Role Phone Unavailable Primary Care Provider Unavailabl e Encounter Details Date Type Department Care Team (Late st Contact Info) Description 08/11/2018 Transcribed Document [facility] [place] [facility] [place] [address] ProviderMariela MD [address] [place] [address] Social History Tobacco Use Types Packs/Day [...] Source : Stated Height Entry Format : [place] Height, Feet : 4 ft(Converted to: 122 cm, 48 Inch) Height, Inches : 11.5 Inch(Converted to: 0 ft 12 Inch, 29.21 cm) Clinical Height : 151.13 cm Weight Source : Standing scale Weight Entry Format : [place] Clinical Dosing Weight : 97.73 kg Weight, Pounds : 215 lb Body Surface Area (BSA) : 1.91 m2 Body Mass Index : 42.8 kg/m2 (>HHI) [place] Body Weight : 44 kg Karen Flores [...] Ambulatory Legal Guardian : Son Support Person/Patient Cattle Farmer : Yes Support Person/Pt Rep Name : Sam Rust Yen Support Person/Pt Rep Contact Information : son (Sam) [phone] (Nancy Rust [phone] Want Family/Rep/Phys Notified of Admit : No Emergency Contact #1 : Sy Emergency Contact #1 Emergency Contact #1 Relationship : son Emergency Contact #2 : . Emergency Contact #2 Phone Number : . Emergency Contact #2 Relationship : . Information Obtained From : Patient Primary Language : Polish Preferred Communication Mode : Verbal Communication Barrier [...]
--- OUTSIDE RECORDS SUMMARY | 2024-11-29 09:44 | XMS_ITS | Patient Health Record ---
Author Organization [employer] [facility] Address [address] [place] [id number] Care Team Providers Care Bead Wire Insulator Name Role Phone Migration, Provider Unavailable Unavailable [...] review and pick correct strength-formulat ion from [employer] options. If intended option is not shown, discontinue and re-order from [employer] Search* Active Cymbalta 60 MG Capsule Delayed Release Particles 1 cap(s) orally once a day; Duration: 30 day(s) Active Potassium Chloride 20MEQ 1XDAY PO *Please review and pick correct strength-formulat ion from [employer] options. If intended option is not shown, discontinue and re-order from [employer]* Active Cyanocobalamin 5000 MCG TABLET, EXTENDED RELEASE 1 TAB(S) ORALLY ONCE A DAY *Please review and pick correct strength-formulat ion from [employer] options. If intended option is not shown, discontinue and re-order from Quick Search* Active oxyCODONE HCl 5 MG Tablet 1 tab(s) orally every 6 hours prn Active Crestor 10 MG Tablet 1 tab(s) orally once a day; Duration: 30 day(s) Active MiraLax - POWDER FOR RECONSTITUTION DIRECTED ORALLY ONCE A DAY; Duration: 7 DAY(S) *Please review and pick correct strength-formulat ion from [employer] options. 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 [employer] [address] [address] [place] [phone] [id number] Sy Barlow Self - patient is the insured Medical (General) History Surgical History Surgery Date(Month/Year) 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
--- OUTSIDE RECORDS SUMMARY | 2024-11-29 09:44 | XMS_ITS | Encounter Summary ---
Author Organization [employer] ([place], [place], [place], [place]) Address [address] [place] [address] Care Team Providers Care Shift Mechanic Name Role Phone Unavailable Primary Care Provider Unavailabl e Encounter Details Date Type Department Care Team (Late st Contact Info) Description 06/17/2019 Transcribed Document [facility] [place] [facility] [place] [address] ProviderMariela MD [address] [place] [address] Social History Tobacco Use Types Packs/Day Years [...] Historical ProviderMD - 06/17/2019 2:00 AM CDT Sole Leather Cutting Machine Operator Details Entered On: 06/17/2019 2:07 EDT Performed [...] 06/17/2019 2:06 EDT Electronically signed by Chantal [facility] Conversion Supervisor Ship Maintenance Services Cerner at 06/16/2022 8:17 PM CDT documented in this encounter Plan of Treatment Not on file documented as of this encounter Visit Diagnoses Not on filedocumented in this encounter
--- OUTSIDE RECORDS SUMMARY | 2024-11-29 09:44 | XMS_ITS | Encounter Summary ---
Author Organization [employer] ([place], [place], [place], [place]) Address [address] [place] [address] Care Team Providers Care Group Fitness Assistant Department Head Name Role Phone Unavailable Primary Care Provider Unavailabl e Encounter Details Date Type Department Care Team (Late st Contact Info) Description 06/28/2019 Transcribed Document [facility] [place] [address] [place] [address] ProviderMariela MD [address] [place] [address] Social History Tobacco Use Types Packs/Day Years [...]
--- OUTSIDE RECORDS SUMMARY | 2024-11-29 09:44 | XMS_ITS | Encounter Summary ---
Author Organization [employer] ([place], [place], [place]) Address [address] [place] [address] Care Team Providers Care Triple Valve Tester Name Role Phone Unavailable Primary Care Provider Unavailabl e Encounter Details Date Type Department Care Team (Late st Contact Info) Description 07/13/2019 Transcribed Document [facility] [place] [facility] [place] [address] ProviderMariela MD [address] [place], [place] [phone] Social History Tobacco Use Types Packs/Day Years [...] Historical ProviderMD - 07/13/2019 2:00 AM CDT Food Assembler Kitchen Details Entered On: 07/13/2019 0:59 EDT Performed [...] Bibi Gallagher RN - 07/13/2019 0:59 EDT documented in this encounter Plan of Treatment Not on file documented as of this encounter Visit Diagnoses Not on filedocumented in this encounter
--- OUTSIDE RECORDS SUMMARY | 2024-11-29 09:44 | XMS_ITS | Encounter Summary ---
Author Organization [employer] ([place], [place], [place], [place]) Address [address] [place] [address] Care Team Providers Care Food Science Professor Name Role Phone Unavailable Primary Care Provider Unavailabl e Encounter Details Date Type Department Care Team (Late st Contact Info) Description 08/22/2018 Transcribed Document [facility] [place] [address] [place] [address] ProviderMariela MD [address] [place], [place] [phone] Social History Tobacco Use Types Packs/Day Years [...]
--- OUTSIDE RECORDS SUMMARY | 2024-11-29 09:44 | XMS_ITS | Encounter Summary ---
Author Organization [employer] ([place], [place], [place], [place]) Address [address] [place] [address] Care Team Providers Care Medical Service Representative Name Role Phone Unavailable Primary Care Provider Unavailabl e Encounter Details Date Type Department Care Team (Late st Contact Info) Description 07/13/2019 Transcribed Document [facility] [place] [facility] [place] [address] ProviderMariela MD [address] [place] [address] Social History Tobacco Use Types Packs/Day [...] BCPS HPI: 06/15 Pt admitted to [facility] [...] follow up on Wednesday Chrissy Henderson, PharmD [phone] documented in this encounter Plan of Treatment Not on file documented as of this encounter Visit Diagnoses Not on filedocumented in this encounter
--- OUTSIDE RECORDS SUMMARY | 2024-11-29 09:44 | XMS_ITS | Encounter Summary ---
Author Organization [employer] ([place], [place], [place], [place]) Address [address] [place] [address] Care Team Providers Care Bus And Trolley Dispatcher Name Role Phone Unavailable Primary Care Provider Unavailabl e Encounter Details Date Type Department Care Team (Late st Contact Info) Description 06/18/2019 Transcribed Document [facility] [place] [facility] [place] [address] ProviderMariela MD [address] [place] [address] Social History Tobacco Use Types Packs/Day Years [...]
--- OUTSIDE RECORDS SUMMARY | 2024-11-29 09:44 | XMS_ITS | Encounter Summary ---
Author Organization [employer] ([place], [place], [place], [place]) Address [address] [place] [address] Care Team Providers Care Collateral Clerk Name Role Phone Unavailable Primary Care Provider Unavailabl e Encounter Details Date Type Department Care Team (Late st Contact Info) Description 07/13/2019 Transcribed Document [facility] [place] [facility] [place] [address] ProviderMariela MD [address] [place] [address] Social History Tobacco Use Types Packs/Day Years [...]
--- OUTSIDE RECORDS SUMMARY | 2024-11-29 09:44 | XMS_ITS | Encounter Summary ---
Author Organization [employer] ([place], [place], [place], [place]) Address [address] [place] [address] Care Team Providers Care Head Boys Tennis Coach Name Role Phone Unavailable Primary Care Provider Unavailabl e Encounter Details Date Type Department Care Team (Late st Contact Info) Description 06/28/2019 Transcribed Document [facility] [place] [facility] [place] [address] ProviderMariela MD [address] [place], [place] [phone] Social History Tobacco Use Types Packs/Day Years [...] Historical ProviderMD - 06/28/2019 9:00 AM CDT CareRust Assessment Admission, [facility] Entered On: 06/28/2019 15:36 EDT Performed [...] 06/28/2019 15:32 EDT Electronically signed by Chantal, [facility] Conversion Filler Mixer Cerner at 06/16/2022 8:20 PM CDT documented in this encounter Plan of Treatment Not on file documented as of this encounter Visit Diagnoses Not on filedocumented in this encounter
--- OUTSIDE RECORDS SUMMARY | 2024-11-29 09:44 | XMS_ITS | Encounter Summary ---
Author Organization [employer] ([place], [place], [place], [place]) Address [address] [place] [address] Care Team Providers Care Box Attacher Name Role Phone Unavailable Primary Care Provider Unavailabl e Encounter Details Date Type Department Care Team (Late st Contact Info) Description 06/17/2019 Transcribed Document [facility] [place] [facility] [place] [address] ProviderMariela MD [address] [place] [address] Social History Tobacco Use Types Packs/Day [...] going to check with Dr. Waddell at [facility] for potential consultation for amputation versus amputation [...] NONAUT RED BLOOD CELLS IN PERIPH VEIN, [facility] (10/28/2016), REMOVAL OF SYNTH SUB FROM L [...] PRN fluticasone 50 mcg/inh nasal spray, 2 [place], Nostrils Both, BID, PRN gabapentin, 300 mg= 1 Cap, Oral, At Bedtime, PRN influenza virus vaccine, inactivated, 0.5 mL, IntraMuscular, [id number] lidocaine 1% preservative-free injectable solution, 10 mL, [...] BID fluticasone 50 mcg/inh nasal spray, 2 [place], Nostrils Both, BID, PRN Lasix 40 mg [...] ALYC # 1 K/uL 06/17/2019 03:44 EDT [place] Percent Man 5 % 06/17/2019 03:44 EDT RBC Morphology Normal 06/17/2019 03:44 EDT Toxic Granulation 3+ (Abnormal) 06/17/2019 03:[address] Estimate Adequate 06/17/2019 03:44 EDT Sed Rate Auto 130 mm/Hr (High) 06/17/2019 03:44 EDT Urine Type. U CleanCatch 06/17/2019 00:16 EDT Urine Color DK YELLOW 06/17/2019 00:16 EDT Urine Appearance CLEAR2 06/17/2019 00:16 EDT Urine Specific Stacy 1.033 (High) 06/17/2019 00:16 EDT Urine pH [...]
--- OUTSIDE RECORDS SUMMARY | 2024-11-29 09:44 | XMS_ITS | Encounter Summary ---
Author Organization [employer] ([place], [place], [place], [place]) Address [address] [place] [address] Care Team Providers Care Hospital Pharmacist Name Role Phone Unavailable Primary Care Provider Unavailabl e Encounter Details Date Type Department Care Team (Late st Contact Info) Description 06/18/2019 Transcribed Document [facility] [place] [facility] [address] ProviderMariela MD [address] [place] [phone] Social History Tobacco Use Types Packs/Day Years [...] ceftriaxone. She reportedly did follow up with [facility] office. She reportedly had her left total [...] to this she presented to [facility]. There she had a CT of the [...] orthopedic history she was subsequently transferred to [facility] for further evaluation of the left knee. Blood cultures from [facility] with Group B Strep. Since [...] 50 m - 2 Gram, IV Piggyback, [id number], infuse over 30 Minute(s), Routine clindamycin - [...] (fluticasone 50 mcg/inh nasal spray) - 2 Ace, Nostrils Both, Ace, BID, PRN for Allergies, Routine Pain Meds [...] 16) ALB L 2.0 (JUN 16) Micro: [facility]: 06/15 [facility] Blood cultures positive for group [...] if any questions. Electronically signed by Chantal [facility] Conversion School Age Lead Teacher Cerner at 06/16/2022 8:02 PM CDT documented in this encounter Plan of Treatment Not on file documented as of this encounter Visit Diagnoses Not on filedocumented in this encounter
--- OUTSIDE RECORDS SUMMARY | 2024-11-29 09:44 | XMS_ITS | Encounter Summary ---
Author Organization [employer] ([place], [place], [place], [place]) Address [address] [place] [address] Care Team Providers Care Ironworker Apprentice Shop Name Role Phone Unavailable Primary Care Provider Unavailabl e Encounter Details Date Type Department Care Team (Late st Contact Info) Description 06/29/2019 Transcribed Document [facility] [place] [facility] [address] ProviderMariela MD [address] [place] [phone] Social History Tobacco Use Types Packs/Day Years [...] 26) ALB L 2.4 (JUN 26) Micro: [facility]: 06/15 [facility] Blood cultures positive for [...] cbc/crp/cmp and esr --Continue work with PT Electronically signed by Maureen Cornejo Conversion Professional Bass Fisherman Titusner at 06/16/2022 8:06 PM CDT documented in this encounter Plan of Treatment Not on file documented as of this encounter Visit Diagnoses Not on filedocumented in this encounter
--- OUTSIDE RECORDS SUMMARY | 2024-11-29 09:44 | XMS_ITS | Encounter Summary ---
Author Organization [employer] ([place], [place], [place], [place]) Address [address] [place] [address] Care Team Providers Care Journeyman Apprentice Electricians Name Role Phone Unavailable Primary Care Provider Unavailabl e Encounter Details Date Type Department Care Team (Late st Contact Info) Description 08/22/2018 Transcribed Document [facility] [place] Replaced by [facility] [place] [address] ProviderMariela MD Re[facility] by [facility] [place] [address] Social History Tobacco Use Types Packs/Day Years Used Date Smoking Tobacco: Never Assessed Comments Unknown Sex and Gender Information Value Date Recorded Sex Assigned at Female 09/02/2021 8:57 PM CDT Legal Sex Female 6:58 PM CDT Gender Identity Female 09/02/2021 8:57 PM CDT Sexual Orientation Not on file documented as of this encounter Miscellaneous Notes * Cerner Conversion Note - Mairela ProviderMD - 08/22/2018 9:14 AM CDT [facility] Main OR PreOp Summary Primary Physician: NIMO EPPS MD-ORT Finalized Date/Time: 08/24/18 10:27:11 Pt. Name: SOFIA GILL Eufemia Bal/Sex: 1940 Female Med Rec #: [id number] Physician: NIMO EPPS MD-ORT Financial #: [id number] Pt. Type: I Room/Bed: 504/1 Admit/Disch: 08/22/18 07:12:00 - [place] [facility] [place] Case Times Entry 1 In Preop 08/22/18 06:15:00 Ready for Holding n/a Room Patient Ready for 08/22/18 08:05:00 Surgery Patient Out of Preop 08/22/18 08:37:00 Patient Out of n/a Holding Room Last Modified By: THIERRY GOODRICH RN 08/24/18 10:27:08 S[facility] PreOp Case Times Audit 08/24/18 10:27:08 Family Practice Md: HORACIO Modifier: HORACIO <+> 1 Patient Out of Preop Finalized By: THIERRY GOODRICH, RN Document Signatures Signed By: THIERRY GOODRICH RN 08/24/18 10:27 documented in this encounter Plan of Treatment Not on file documented as of this encounter Visit Diagnoses Not on filedocumented in this encounter
--- OUTSIDE RECORDS SUMMARY | 2024-11-29 09:44 | XMS_ITS | Encounter Summary ---
Author Organization [employer] ([place], [place], [place], [place]) Address [address] [place] [address] Care Team Providers Care Ruby Developer Name Role Phone Unavailable Primary Care Provider Unavailabl e Encounter Details Date Type Department Care Team (Late st Contact Info) Description 07/13/2019 Transcribed Document [facility] [place] [facility] [place] [address] ProviderMariela MD [address] [place] [address] Social History Tobacco Use Types Packs/Day [...] out referral for placement for patient to [facility] nursing and rehab, [facility] facilities and triology facilities. Awaiting call backs. Care Management Note Report : СВЕТЛАНА WANG - 07/12/19 12:19:17 07/12/2019 Fax received from [facility] with approval for LTAC services with a request for updated discharge plans and clinical info to support needs if not discharged. Auth#[id number]. Clinical review or discharge summary to be faxed by 07/17/2019. YOANNA ARAUJO RN - 07/12/19 08:39:48 Yoanna Araujo 07/12/2019 0830 - faxed clinical review the [facility] at [phone] to request approval for extended ltac services. Auth#[id number], awaiting approval. YOANNA ARAUJO RN - 06/29/19 [...] health and she has been to the [place] [facility] and [facility] in the past. She has the following equipment at home: wheel chair, walker, cane and shower chair. Her discharge plan is to go to rehab prior to returning home. PCP: Flavia MARQUEZ [address] [place] [address] Charge Master Coordinator: Dr. Shemar Barger [address] [phone] Clemente Del Rio MD - Rheumatology - [address] [place] [address] Preferences: Home Health: [facility]: no preferences DME: [facility] - [address], [place] [address] [facility]: no preferences Will continue to monitor patient for anticipated discharge needs YOANNA ARAUJO RN - 06/29/19 08:30:20 Yoanna Araujo 06/29/2019 0830 received fax from [facility] with approval for extended ltac coverage with next clinical review due on 07/12/2019. Auth#[id number]. Will continue to follow for anticipated discharge needs. YOANNA ARAUJO RN - 06/28/19 08:35:06 Yoanna Araujo 06/28/2019 0830 Faxed clinical review to [facility] at to request approval for extended Ltac services. Auth#[id number]. Pending Approval. Documentation Status Complete : Yes YOANNA ARAUJO RN - 07/13/2019 11:02 EDT documented in this encounter Plan of Treatment Not on file documented as of this encounter Visit Diagnoses Not on filedocumented in this encounter
--- OUTSIDE RECORDS SUMMARY | 2024-11-29 09:44 | XMS_ITS | Encounter Summary ---
Author Organization [employer] ([place], [place], [place], [place]) Address [address] [place] [address] Care Team Providers Care Coin Machine Mechanic Name Role Phone Unavailable Primary Care Provider Unavailabl e Encounter Details Date Type Department Care Team (Late st Contact Info) Description 08/22/2018 Transcribed Document [facility] [place] [facility] [place] [address] ProviderMariela MD [facility] [place] [phone] Social History Tobacco Use Types Packs/Day Years [...] Wheelchair Legal Guardian : Son Support Person/Patient Parachute Marker : Yes Support Person/Pt Rep Name : Sam Rust Yen Support Person/Pt Rep Contact Information : son Vipul) [phone] (Nancy Rust [phone] Want Family/Rep/Phys Notified of Admit : No Emergency Contact #1 : Sy Emergency Contact #1 Emergency Contact #1 Relationship : son Emergency Contact #2 : . Emergency Contact #2 Phone Number : . Emergency Contact #2 Relationship : . Information Obtained From : Patient Primary Language : Yi Preferred Communication Mode : Verbal Communication Barrier [...] Level : 46 or > High Risk [place] Fall Interventions : Adequate lighting, Assistive devices [...] Source : Stated Height Entry Format : Carlotta Height, Feet : 4 ft(Converted to: 122 cm, 48 Inch) Height, Inches : 11.5 Inch(Converted to: 0 ft 12 Inch, 29.21 cm) Clinical Height : 151.13 cm Weight Source : Standing scale Weight Entry Format : Carlotta Clinical Dosing Weight : 97.73 kg Weight, Pounds : 215 lb Body Surface Area (BSA) : 1.91 m2 Body Mass Index : 42.8 kg/m2 (>HHI) [place] Body Weight : 44 kg Vianca Morgan [...] History Weight Entry Format Nutrition History : Carlotta Usual Weight, Pounds : 210 lb Clinical [...]
--- OUTSIDE RECORDS SUMMARY | 2024-11-29 09:44 | XMS_ITS | Encounter Summary ---
Author Organization [employer] ([place], [place], [place], [place]) Address [address] [place] [address] Care Team Providers Care Exhibit Cleaner Name Role Phone Unavailable Primary Care Provider Unavailabl e Encounter Details Date Type Department Care Team (Late st Contact Info) Description 06/17/2019 Transcribed Document [facility] [place] [facility] [address] ProviderMariela MD [address] [place] [phone] Social History Tobacco Use Types Packs/Day Years [...] reportedly did follow up with [facility] office. She reportedly had her left [...] ambulation. Due to this she presented to [facility]. There she had a CT of [...] orthopedic history she was subsequently transferred to [facility] for further evaluation of the left knee. Blood cultures from [facility] with Group B Strep. Since arrival she [...] 50 m - 2 Gram, IV Piggyback, [id number], infuse over 30 Minute(s), Routine Immunology influenza virus vaccine, inactivated - 0.5 mL, IntraMuscular, Inj, [id number] Cardiovascular cloNIDine - 0.1 mg, Oral, Tab, [...] (fluticasone 50 mcg/inh nasal spray) - 2 [place], Nostrils Both, [place], BID, PRN for Allergies, Routine Pain Meds [...] 16) ALB L 2.0 (JUN 16) Micro: [facility]: 06/15 [facility] Blood cultures [...] blood cultures and synovial fluid cultures from [facility] [place] - I called lab to add fungal [...] over the weekend, then another [facility] physician will take over care on Wednesday. Call if any questions. Dr. Newton Santana has obtained history, performed physical examination and formulated the above plan of care Alpesh Velazquez APRN for Dr. Newton Santana [facility] I have edited this note to reflect my history, exam, assessment and plan. documented in this encounter Plan of Treatment Not on file documented as of this encounter Visit Diagnoses Not on filedocumented in this encounter
--- OUTSIDE RECORDS SUMMARY | 2024-11-29 09:44 | XMS_ITS | Encounter Summary ---
Author Organization [employer] ([place], [place], [place], [place]) Address [address] [place] [address] Care Team Providers Care Sliver Handler Name Role Phone Unavailable Primary Care Provider Unavailabl e Encounter Details Date Type Department Care Team (Late st Contact Info) Description 06/17/2019 Transcribed Document [facility] [place] [address] ProviderMariela MD [address] [place] [address] Social History Tobacco Use Types Packs/Day [...] : Musa Giron MD Admitting Physician : [facility] medicine :Internal Medicine : Donna Jaffe [...] & hypotension , and [place] [facility] [place] & after [...] modified according to his recommendations. , from [facility] , was consulted & pt had Lt knee aspiration & recommended either Amputation or to transfer pt. to [facility] for Dr.O' Knapp to decide putting in [...] BID fluticasone 50 mcg/inh nasal spray 2 [place]ef[place], PRN, Nostrils Both, BID Lasix 40 mg [...] 0.9% 50 mL 2 Gram, IV Piggyback, [id number] cyanocobalamin 1,000 mcg tab 5,000 mcg 5 Tab, Oral, Daily docusate sodium 100 mg cap 100 mg 1 Cap, Oral, BID DULoxetine DR 60 mg cap 60 mg 1 Cap, Oral, Daily influenza vaccine, quadrivalent 0.5 mL, IntraMuscular, [id number] levothyroxine 100 mcg tab 100 mcg 1 [...] Oral, Q4H fluticasone 0.05% nasal spray 2 Kenefic, Nostrils Both, BID gabapentin 300 mg cap [...] left knee ORIF. lap band gastric bypass. [place] filter. Social History & has 2 sons. [...] swelling, No deformity, Normal gait. Integumentary: Warm, [place], Intact, No pallor, No rash, cellulitis Lt [...]
--- OUTSIDE RECORDS SUMMARY | 2024-11-29 09:44 | XMS_ITS | Encounter Summary ---
Author Organization [employer] ([place], [place], [place], [place]) Address [address] [place] [address] Care Team Providers Care Car Parker Name Role Phone Unavailable Primary Care Provider Unavailabl e Encounter Details Date Type Department Care Team (Late st Contact Info) Description 08/22/2018 Transcribed Document [facility] [place] [facility] [place] [address] ProviderMariela MD [address] [place] [address] Social History Tobacco Use Types Packs/Day [...]
--- OUTSIDE RECORDS SUMMARY | 2024-11-29 09:44 | XMS_ITS | Encounter Summary ---
Author Organization [employer] ([place], [place], [place], [place]) Address [address] [place] [address] Care Team Providers Care Iuss Analyst Name Role Phone Unavailable Primary Care Provider Unavailabl e Encounter Details Date Type Department Care Team (Late st Contact Info) Description 08/22/2018 Transcribed Document [facility] [place] Count includes the [facility] [place] [address] ProviderMariela MD [address] [place] [address] Social History Tobacco Use Types Packs/Day [...] EDIN DRAKE OTR/Bartolo - 08/22/2018 13:33 EDT Glaze Sprayer Goals, OT Other LTG Grid Goal #1 [...]
--- OUTSIDE RECORDS SUMMARY | 2024-11-29 09:44 | XMS_ITS | Encounter Summary ---
Author Organization [employer] ([place], [place], [place], [place]) Address [address] [place] [address] Care Team Providers Care Dag Coater Name Role Phone Unavailable Primary Care Provider Unavailabl e Encounter Details Date Type Department Care Team (Late st Contact Info) Description 06/17/2019 Transcribed Document [facility] [place] [facility] [place] [address] ProviderMariela MD [address] [place] [address] Social History Tobacco Use Types Packs/Day [...] Berg RD, LD - 06/19/2019 15:57 EDT Electronically signed by Chantal Maureen Conversion Railroad Operating Engineer Cerner at 06/16/2022 8:13 PM CDT documented in this encounter Plan of Treatment Not on file documented as of this encounter Visit Diagnoses Not on filedocumented in this encounter
--- OUTSIDE RECORDS SUMMARY | 2024-11-29 09:44 | XMS_ITS | Encounter Summary ---
Author Organization [employer] ([place], [place], [place], [place]) Address [address] [place] [address] Care Team Providers Care Operating Systems Specialist Name Role Phone Unavailable Primary Care Provider Unavailabl e Encounter Details Date Type Department Care Team (Late st Contact Info) Description 08/09/2018 Transcribed Document [facility] [place] [facility] [place] [address] ProviderMariela MD [address] [place] [address] Social History Tobacco Use Types Packs/Day Years [...]
--- OUTSIDE RECORDS SUMMARY | 2024-11-29 09:44 | XMS_ITS | Encounter Summary ---
Author Organization [email or web address] ([place], [place], [place], [place]) Address [address] [place] [address] Care Team Providers Care Host/Hostess Ground Name Role Phone Unavailable Primary Care Provider Unavailabl e Encounter Details Date Type Department Care Team (Late st Contact Info) Description 08/22/2018 Transcribed Document [facility] [place] [facility] [place] [address] ProviderMariela MD [facility] [place] [address] Social History Tobacco Use Types [...] RAFAT LEIGH PTA - 08/25/2018 15:45 EDT Comb Machine Operator Goals Other PT LTG Grid Goal #1 Goal #2 Goal #3 Other : Patient will ambulate at least 50 feet with RWx and no more than Alexandra without LOB or safety concerns to allow safe household or facility ambulation upon [facility] care DC. Patient will participate [...] PTA - 08/25/2018 15:45 EDT RAFAT LEIGH, [facility] - 08/25/2018 15:45 EDT RAFAT LEIGH, [facility] - 08/25/2018 15:45 EDT Treatment Note [...] be discharged from skilled therapy while at [facility] [place] secondary to flexion restriction and being independent with HEP Plan for Treatment : Discontinue physical therapy per supervising physical therapist. RAFAT LEIGH, [facility] - 08/25/2018 15:45 EDT Pain Assessment Pain Comment : NO c/o pain at rest. RAFAT LEIGH, [facility] - 08/25/2018 15:45 EDT Image 1 - Images currently included in the form version of this document have not been included in the text rendition version of the form. [employer] PT Charges PT Therap. Exercise 15 min : 1 RAFAT LEIGH [facility] - 08/25/2018 15:45 EDT documented in this encounter Plan of Treatment Not on file documented as of this encounter Visit Diagnoses Not on filedocumented in this encounter
--- OUTSIDE RECORDS SUMMARY | 2024-11-29 09:44 | XMS_ITS | Encounter Summary ---
Author Organization [employer] ([place], [place], [place], [place]) Address [address] [place] [address] Care Team Providers Care Insulation Board Coater Operator Name Role Phone Unavailable Primary Care Provider Unavailabl e Encounter Details Date Type Department Care Team (Late st Contact Info) Description 08/11/2018 Transcribed Document [facility] [place] [facility] [place] [address] ProviderMariela MD [address] [place], [place] [id number] Social History Tobacco Use Types Packs/Day Years [...]
--- OUTSIDE RECORDS SUMMARY | 2024-11-29 09:44 | XMS_ITS | Encounter Summary ---
Author Organization [employer] ([place], [place], [place], [place]) Address [address] [place] [address] Care Team Providers Care Staff Research Associate Name Role Phone Unavailable Primary Care Provider Unavailabl e Encounter Details Date Type Department Care Team (Late st Contact Info) Description 07/13/2019 Transcribed Document [facility] [place] [facility] [place] [address] ProviderMariela MD [address] [place] [address] Social History Tobacco Use Types Packs/Day Years [...]
--- OUTSIDE RECORDS SUMMARY | 2024-11-29 09:44 | XMS_ITS | Encounter Summary ---
Author Organization [employer] ([place], [place], [place], [place]) Address [address] [place] [address] Care Team Providers Care Cellar Worker Name Role Phone Unavailable Primary Care Provider Unavailabl e Encounter Details Date Type Department Care Team (Late st Contact Info) Description 06/29/2019 Transcribed Document [facility] [place] [facility] [place] [address] ProviderMariela MD [address] [place], [place] [phone] Social History Tobacco Use Types Packs/Day Years [...] Yoanna Araujo 06/29/2019 08 received fax from [facility] with approval for extended ltac coverage with next clinical review due on 07/12/2019. Auth#[id number]. Will continue to follow for anticipated discharge needs. Care Management Note Report : YOANNA ARAUJO RN - 06/28/19 08:35:06 Yoanna Araujo 06/28/2019 0830 Faxed clinical review to [facility] at to request approval for extended Ltac services. Auth#[id number]. Pending Approval. Documentation Status Complete : Yes YOANNA ARAUJO RN - 06/29/2019 8:26 EDT documented in this encounter Plan of Treatment Not on file documented as of this encounter Visit Diagnoses Not on filedocumented in this encounter
--- OUTSIDE RECORDS SUMMARY | 2024-11-29 09:44 | XMS_ITS | Clinical Summary ---
Author Organization [facility] Address [address] [place] [address] Care Team Providers Care Chief Librarian Branch Or Department Name Role Phone Gracia Cleaning Dr Primary Care Provider Unavailabl e Allergies Active Allergy Reactions Criticality Noted Date Comments Amlodipine 08/29/2024 Etodolac Itching,Unknown 09/07/2012 etodolac Latex 09/25/2024 Nsaids [...] 100 mg by mouth in the morning. Active Magnesium Citrate 125 MG capsule Take in the morning. Active Crestor 10 MG tablet Take in the morning. Active diclofenac (Voltaren) 75 MG EC tablet Take in the morning and in the evening. Active HYDROcodone-morena taminophen ([place]) 7.5-325 MG tablet Take 1 tablet by [...] 3350 (MIRALAX PO) Take by mouth. Active cholecalciferol (Vitamin D-3) 50 MCG (1999 [place]) capsule 50 mcg. Active Misc Natural Products (TURMERIC, CURCUMIN, PO) Take 3 tablets by mouth in the morning. Active diclofenac-miSO PROStol (Arthrotec) 75-0.2 MG EC tablet Two times a day Active Coenzyme Q10 (Q-SORB) 100 MG capsule 100 mg. Active metoprolol tartrate (Lopressor) 25 MG tablet Take in the morning and in the evening. 11/16/19 25 Discontinu ed(Side effects) Active Problems Problem Noted Date Diagnosed Date Aortic stenosis, non-rheumatic 11/09/2024 Aortic valve disorder 11/09/2024 Arthropathy 11/09/2024 Atherosclerosis of coronary artery without angin a pectoris 11/09/2024 Bilateral lower limb edema 11/09/2024 Body mass index 40+ - severely obese 11/09/2024 Cardiovascular stress test abnormal 11/09/2024 Cellulitis of left knee 11/09/2024 Chronic diastolic heart failure 11/09/2024 Chronic postoperative pain 11/09/2024 Closed fracture of metatarsal bone of right foot 11/09/2024 Coronary arteriosclerosis 11/09/2024 Dependence on enabling machine or device 025 Disorder of kidney and/or ureter 11/09/2024 Disorder of vocal cord 11/09/2024 Dystrophia unguium 11/09/2024 Essential hypertension 11/09/2024 Gastro-esophageal reflux disease without esophag itis 11/09/2024 Gout 11/09/2024 History of heart valve repair with prosthesis Hyperlipidemia 11/09/2024 Hypertensive heart disease 11/09/2024 Hypoalbuminemia 11/09/2024 Hypokalemia 11/09/2024 Hypothyroidism 11/09/2024 Injury of head 11/09/2024 Internal derangement of left knee 11/09/2024 Laceration - injury 11/09/2024 Late effect of medical and surgical care complic ation 11/09/2024 Localized swelling of right foot 11/09/2024 Lymphedema 11/09/2024 Lymphedema of lower extremity 11/09/2024 Malaise 11/09/2024 Mild persistent asthma with acute exacerbation 0 11/09/2024 Mobitz type I incomplete atrioventricular block 11/09/2024 Morbid obesity 11/09/2024 Neuropathic pain 11/09/2024 Obstructive sleep apnea syndrome 11/09/2024 Onychomycosis 11/09/2024 Osteoarthritis of knee 11/09/2024 Angina, class III 11/09/2024 Pain of left knee joint 11/09/2024 Peripheral vascular disease 11/09/2024 Post-traumatic gonarthrosis, bilateral Postmenopausal bleeding 11/09/2024 Postmenopausal osteopenia 11/09/2024 Postmenopausal osteoporosis 11/09/2024 Preoperative state 11/09/2024 Presence of artificial knee joint 11/09/2024 Recurrent falls 11/09/2024 Sciatica 11/09/2024 Seasonal allergic rhinitis 11/09/2024 Stress fracture of metatarsal bone of right foot 11/09/2024 Subclavian artery stenosis 11/09/2024 Venous insufficiency of leg 11/09/2024 Venous stasis syndrome 11/09/2024 Earnest hematuria 03/31/2023 Nodule of lung 11/29/2017 Pain associated with internal prosthetic device 09/05/2015 Overview (11/09/2024): From Automated Load;Provider: Tripp Eddy;Status: Active 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 Overview (11/09/2024): From Automated Load;Provider: George Cobos Jr;Status: Active Encounters Date Type Department Care Team Description 11/15/2024 10:45 AM EDT Office Visit [facility] [address] [phone] Pina Granados NP Follow-up arranged (Primary Dx); Severe aortic valve stenosis 11/15/2024 Travel 11/13/2024 11:00 AM EDT Office Visit [facility] [address] [place] [address] [address] [place] [address] Deepa Lama MD History of bioprosthetic transcatheter aortic valve implantation (Primary Dx) 11/13/2024 Travel 10/16/2024 Telephone [facility] [address] [facility] [address] [place] [address] Charleen Leblanc RN 09/25/2024 10:45 AM EDT Office Visit [facility] [address] [place] [address] Deepa Lama MD Aortic valve stenosis (Primary Dx); Shortness of breath 09/25/2024 Telephone [facility] [address] [place] [address] Deepa Lama MD 09/25/2024 Travel 09/18/2024 Telephone [facility] [address] [place] [address] Deepa Lama MD from Last 3 Months Social History [...] Mass Index 46.45 11/15/2024 10:58 AM EDT Plan of Treatment Upcoming Encounters Date Type Department Care Team (Late st Contact Info) Description 11/12/2025 11:15 AM EDT Office Visit [facility] [address] [facility] [address] [place] [address] Deepa Lama MD [address] [facility] [address] [place] [address] Health Maintenance Due Date Last Done Comments [...] Additional history exists Influenza Vaccine (#1) 2024 , 01/14/2023, 11/16/2021, Additional history exists BMI Intervention Completed 11/15/2024, , 09/25/2024 HIB Vaccines Aged Out No longer [...] History of bioprosthetic transcatheter aortic valve implantation PULMONARY FUNCTION TESTING 10/13/2024 4:24 PM EDT [...] 09/25/2024 11:07 AM EDT Shortness of breath from Last 3 Months Results * ECG 12 lead (11/13/2024 12:22 PM EDT) Only the most recent of2 resultswithin the time period is included. us Deepa Lama MD ECG ORDERABLES Final Result * Pulmonary function testing (10/13/2024 4:24 PM [...] DELFINA BARILLAS MD-PUL Modified by: DELFINA BARILLAS MD-PULon 10/13/24 16:33 EDT us Kena Honeycutt MD PFT ORDERABLES Edited Result - Final * Echo 2d tavr (10/13/2024 7:22 AM EDT) Anatomical Region Laterality Modality Ultrasound 10/13/2024 7:22 AM EDT us Pina Granados BOX BENDER CV ECHO PROCEDURES Final Re sult * [...] Laterality Modality Other 10/12/2024 1:57 PM EDT us Deepa Lama MD CV CARDIAC CATH PROCEDURES [...] Narrative 10/11/2024 Ordered by an unspecified provider. us Provider Not In System CV STRESS PROCEDURES Karolina l Result * TRANSTHORACIC ECHO (TTE) COMPLETE W CONTRAST (10/10/2024 7:29 AM EDT) Anatomical Region Laterality Modality Ultrasound 10/10/2024 7:29 AM EDT us Deepa aLma MD CV ECHO PROCEDURES Final Result from Last 3 Months Insurance [employer]VANTAGE Care Teams Chief Librarian Branch Or Department Relationship Specialty Start Date End Date Gracia Cleaning Dr. PCP - General 09/18/24
--- OUTSIDE RECORDS SUMMARY | 2024-11-29 09:44 | XMS_ITS | Encounter Summary ---
Author Organization [employer] ([place], [place], [place], [place]) Address [address] [place] [address] Care Team Providers Care Reporting Manager Name Role Phone Unavailable Primary Care Provider Unavailabl e Encounter Details Date Type Department Care Team (Late st Contact Info) Description 06/29/2019 Transcribed Document [facility] [place] [address] [place] [address] ProviderMariela MD [address] [place], [place] [phone] Social History Tobacco Use Types Packs/Day Years [...]
--- OUTSIDE RECORDS SUMMARY | 2024-11-29 09:44 | XMS_ITS | Encounter Summary ---
Author Organization [employer] ([place], [place], [place], [place]) Address [address] [place] [address] Care Team Providers Care Business Continuity Global Director Name Role Phone Unavailable Primary Care Provider Unavailabl e Encounter Details Date Type Department Care Team (Late st Contact Info) Description 07/13/2019 Transcribed Document [facility] [place] [facility] [place] [address] ProviderMariela MD [address] [place] [address] Social History Tobacco Use Types Packs/Day [...] Comment, OT : Given LH sponge, leg marinator and sole stainer for ADLs in room. Declines further practice from OT. Will sign off at this time. NILA RAMAN OTR/Bartolo - 07/13/2019 14:14 EDT Implant Polisher Goals, OT Bathing LTG Grid Goal #1 [...]
--- OUTSIDE RECORDS SUMMARY | 2024-11-29 09:44 | XMS_ITS | Encounter Summary ---
Author Organization [employer] ([place], [place], [place], [place]) Address [address] [place] [address] Care Team Providers Care Router Operator Name Role Phone Unavailable Primary Care Provider Unavailabl e Encounter Details Date Type Department Care Team (Late st Contact Info) Description 06/29/2019 Transcribed Document [facility] [place] [facility] [place] [address] ProviderMariela MD [address] [place] [address] Social History Tobacco Use Types Packs/Day Years [...] Historical ProviderMD - 06/29/2019 2:00 AM CDT Program Coordinator Executive Education Details Entered On: 06/29/2019 3:41 EDT Performed [...]
--- OUTSIDE RECORDS SUMMARY | 2024-11-29 09:44 | XMS_ITS | Encounter Summary ---
Author Organization [employer] ([place], [place], [place], [place]) Address [address] [place] [address] Care Team Providers Care Sanitation Technician Name Role Phone Unavailable Primary Care Provider Unavailabl e Encounter Details Date Type Department Care Team (Late st Contact Info) Description 06/28/2019 Transcribed Document [facility] [place] Medicine [facility] [place] [address] ProviderMariela MD [address] [place], [place] [phone] Social History Tobacco Use Types Packs/Day Years [...] TAN BRYANT RN Interdisciplinary Rounds Working Summary [facility] Interdisciplinary Rounds Note : 06/27: pt with MASD to gluteal cleft and left knee in Vknifjnrz-Nxronl-Eivu Abnormality: Knee Left on 06/28/2019 14:37 by [...] inc dry with steri strips see photos ATN BRYANT, RN - 06/28/2019 14:40 EDT Electronically signed by Chantal [facility] Conversion Terminal Computer Operator Cerner at 06/16/2022 8:10 PM CDT documented in this encounter Plan of Treatment Not on file documented as of this encounter Visit Diagnoses Not on filedocumented in this encounter
--- OUTSIDE RECORDS SUMMARY | 2024-11-29 09:44 | XMS_ITS | Encounter Summary ---
Author Organization [employer] ([place], [place], [place], [place]) Address [address] [place] [address] Care Team Providers Care Jig Boring Machine Set Up Operator Name Role Phone Unavailable Primary Care Provider Unavailabl e Encounter Details Date Type Department Care Team (Late st Contact Info) Description 06/28/2019 Transcribed Document [facility] [place] [facility] [place] [address] ProviderMariela MD [address] [place] [address] Social History Tobacco Use Types Packs/Day Years [...] Historical ProviderMD - 06/28/2019 2:00 AM CDT Wall Covering Contractor Details Entered On: 06/28/2019 6:17 EDT Performed [...]
--- OUTSIDE RECORDS SUMMARY | 2024-11-29 09:44 | XMS_ITS | Encounter Summary ---
Author Organization [employer] ([place], [place], [place], [place]) Address [address] [place] [address] Care Team Providers Care Technical Program Manager Name Role Phone Unavailable Primary Care Provider Unavailabl e Encounter Details Date Type Department Care Team (Late st Contact Info) Description 06/28/2019 Transcribed Document [facility] [place] [facility] [place] [address] ProviderMariela MD [address] [place] [phone] Social History Tobacco Use Types Packs/Day Years [...] Mariela ProviderMD - 06/28/2019 2:39 PM CDT [facility] Inpatient Documentation Entered On: 06/28/2019 14:39 [...] Ulcer WOCN Wound Pressure Ulcer Documentation : Uewonlwah-Wjbkzs-Szuf Abnormality: Knee Left on 06/28/2019 14:37 by [...] inc dry with steri strips see photos Fqnwgfkog-Nggcqn-Gorn Abnormality: Other: gluteal cleft on 06/27/2019 11:39 by TAN BRYANT RN I/W/A Type: Moisture associated skin damage (MASD) I/W/A Present on Admission to Hospital: Yes I/W/A Wound Bed Description: Full-thickness, Other: linear I/W/A Bed Color(s): Red WOCN Ostomy Documentation : No ostomy assessments reported. TAN BRYANT RN - 06/28/2019 14:39 EDT Electronically signed by Chantal [facility] Conversion Route Sales Person Cerner at 06/16/2022 8:18 PM CDT documented in this encounter Plan of Treatment Not on file documented as of this encounter Visit Diagnoses Not on filedocumented in this encounter
--- OUTSIDE RECORDS SUMMARY | 2024-11-29 09:44 | XMS_ITS | Encounter Summary ---
Author Organization [employer] ([place], [place], [place], [place]) Address [address] [place] [address] Care Team Providers Care Certified Pharmacy Tech Name Role Phone Unavailable Primary Care Provider Unavailabl e Encounter Details Date Type Department Care Team (Late st Contact Info) Description 07/13/2019 Transcribed Document [facility] [place] [facility] [place] [address] ProviderMariela MD [address] [place] [address] Social History Tobacco Use [...] Conversion Note - Mariela ProviderMD - 07/13/2019 2:29 PM CDT Care Management Assessment/Plan Entered On: 07/13/2019 14:37 EDT Performed On: 07/13/2019 14:29 EDT by YOANNA ARAUJO RN Care Management Note Care Management Note : Yoanna Araujo 07/13/2019 1400 received call from Ratna with [facility] offering patient a bed, Received call from Isabelle [facility] she is looking at patient and needed a current height and weight. Still waiting to see if any other bed offers come through. I also sent referral to [facility]. Care Management Note Report : YOANNA ARAUJO RN - 07/13/19 11:04:03 Yoanna Araujo 07/13/2019 1100 faxed out referral for placement for patient to [facility] nursing [facility] rehab, [facility] facilities and triology facilities. Awaiting call backs. СВЕТЛАНА WANG - 07/12/19 12:19:17 07/12/2019 Fax received from [facility] with approval for LTAC services with a request for updated discharge plans and clinical info to support needs if not discharged. Auth#[id number]. Clinical review or discharge summary to be faxed by 07/17/2019. YOANNA ARAUJO RN - 07/12/19 08:39:48 Yoanna Araujo 07/12/2019 0830 - faxed clinical review the [facility] at [phone] to request approval for extended ltac services. Auth#[id number], awaiting approval. YOANNA ARAUJO RN - 06/29/19 [...] and she has been to the [facility] and [facility] in the past. She has the following equipment at home: wheel chair, walker, cane and shower chair. Her discharge plan is to go to rehab prior to returning home. PCP: Flavia MARQUEZ [address] [place] [address] Remote Sensing Program Manager: Dr. Shemar Barger [id number] Clemente Del Rio MD - Rheumatology - [address] [place] [address] Preferences: Home Health: [facility]: no preferences DME: [facility] - [address] [facility] [address] [place] [address] Jail: [facility]: no preferences Will continue to monitor patient for anticipated discharge needs YOANNA ARAUJO RN - 06/29/19 08:30:20 Yoanna Araujo 06/29/2019 0830 received fax from [facility] with approval for extended ltac coverage with next clinical review due on 07/12/2019. Auth#[id number]. Will continue to follow for anticipated discharge needs. YOANNA ARAUJO RN - 06/28/19 08:35:06 Yoanna Araujo 06/28/2019 0830 Faxed clinical review to [facility] at to request approval for extended Ltac services. Auth#[id number]. Pending Approval. Documentation Status Complete : Yes YOANNA ARAUJO RN - 07/13/2019 14:29 EDT documented in this encounter Plan of Treatment Not on file documented as of this encounter Visit Diagnoses Not on filedocumented in this encounter
--- OUTSIDE RECORDS SUMMARY | 2024-11-29 09:44 | XMS_ITS | Encounter Summary ---
Author Organization [employer] ([place], [place], [place], [place]) Address [address] [place] [address] Care Team Providers Care Geothermal Production Manager Name Role Phone Unavailable Primary Care Provider Unavailabl e Encounter Details Date Type Department Care Team (Late st Contact Info) Description 07/13/2019 Transcribed Document [facility] [place] Medicine [address] [place] [address] ProviderMariela MD [address] [place], [place] [id number] Social History Tobacco Use Types Packs/Day Years [...] Bibi Gallagher RN - 07/13/2019 4:34 EDT documented in this encounter Plan of Treatment Not on file documented as of this encounter Visit Diagnoses Not on filedocumented in this encounter
--- OUTSIDE RECORDS SUMMARY | 2024-11-29 09:44 | XMS_ITS | Encounter Summary ---
Author Organization [employer] ([place], [place], [place], [place]) Address [address] [place] [address] Care Team Providers Care Utilities Ground Worker Name Role Phone Unavailable Primary Care Provider Unavailabl e Encounter Details Date Type Department Care Team (Late st Contact Info) Description 08/11/2018 Transcribed Document [facility] [place] [address] ProviderMariela MD [address] [place] [address] Social History Tobacco Use Types Packs/Day [...] Cerner Conversion Note - Mariela ProviderMD - 08/11/2018 2:55 PM CDT Patient: SOFIA BARLOW Age: 78 Years Sex: Female : 1940 Chief Complaint Right Knee Pain Primary Care Provider NILA CHO, [facility] History of Present Illness This patient [...] BID fluticasone 50 mcg/inh nasal spray 2 [place], PRN, Nostrils Both, BID Lasix 40 mg [...] nitrites and LE Electronically signed by Chantal, [facility] Conversion Rivet Bucker Cerner at 06/16/2022 8:22 PM CDT documented in this encounter Plan of Treatment Not on file documented as of this encounter Visit Diagnoses Not on filedocumented in this encounter
--- OUTSIDE RECORDS SUMMARY | 2024-11-29 09:44 | XMS_ITS | Encounter Summary ---
Author Organization [employer] ([place], [place], [place], [place]) Address [address] [place] [address] Care Team Providers Care Vp Information Technology Name Role Phone Unavailable Primary Care Provider Unavailabl e Encounter Details Date Type Department Care Team (Late st Contact Info) Description 08/22/2018 Transcribed Document [facility] [place] [facility] [place] [address] ProviderMariela MD [address] [place] [address] Social History Tobacco Use Types Packs/Day [...] Source : Stated Height Entry Format : Grandy Height, Feet : 4 ft(Converted to: 122 cm, 48 Inch) Height, Inches : 11.5 Inch(Converted to: 0 ft 12 Inch, 29.21 cm) Clinical Height : 151.13 cm Weight Source : Standing scale Weight Entry Format : Grandy Clinical Dosing Weight : 97.73 kg Weight, Pounds : 215 lb Body Surface Area (BSA) : 1.91 m2 Body Mass Index : 42.8 kg/m2 (>HHI) [place] Body Weight : 44 kg THIERRY GOODRICH [...] EDT Legal Guardian : Son Support Person/Patient Transitions Rn Care Coordinator : Yes Support Person/Pt Rep Name : Sam Dan Barrera Yen Support Person/Pt Rep Contact Information : son Vipul) [phone] (Nancy Rust [phone] Want Family/Rep/Phys Notified of Admit : No Emergency Contact #1 : Sy Emergency Contact #1 Emergency Contact #1 Relationship : son Emergency Contact #2 : . Emergency Contact #2 Phone Number : . Emergency Contact #2 Relationship : . Information Obtained From : Patient Primary Language : Lithuanian Preferred Communication Mode : Verbal Communication Barrier [...] : Yes Gender Male : No THIERRY GOODRIHC RN - 08/22/2018 7:58 EDT Jay Scale [...] Level : 46 or > High Risk [place] Fall Interventions : Adequate lighting, Assistive devices [...] the text rendition version of the form. [place] Coma [place] Best Motor Response : Obey commands Nazia Best Verbal Response : Oriented Nazia Eye Opening Response : Spontaneous [place] Coma Score : 15 THIERRY GOODRICH RN - 08/22/2018 7:49 EDT Electronically signed by Maureen Cornejo Conversion Enhanced Environmental Operator Cerner at 06/16/2022 8:15 PM CDT documented in this encounter Plan of Treatment Not on file documented as of this encounter Visit Diagnoses Not on filedocumented in this encounter
--- OUTSIDE RECORDS SUMMARY | 2024-11-29 09:44 | XMS_ITS | Encounter Summary ---
Author Organization [employer] ([place], [place], [place], [place]) Address [address] [place] [address] Care Team Providers Care Internal Controls Specialist Name Role Phone Unavailable Primary Care Provider Unavailabl e Encounter Details Date Type Department Care Team (Late st Contact Info) Description 06/28/2019 Transcribed Document [facility] [place] Family Medicine [address] [place] [address] ProviderMariela MD [address] [place], [place] [id number] Social History Tobacco Use Types Packs/Day Years [...] Bibi Gallagher RN - 06/28/2019 6:17 EDT Electronically signed by Chantal [facility] Conversion Deputy Director Of Public Works Min at 06/16/2022 8:16 PM CDT documented in this encounter Plan of Treatment Not on file documented as of this encounter Visit Diagnoses Not on filedocumented in this encounter
--- OUTSIDE RECORDS SUMMARY | 2024-11-29 09:44 | XMS_ITS | Encounter Summary ---
Author Organization [employer] ([place], [place], [place], [place]) Address [address] [place] [address] Care Team Providers Care Tearoom Host Name Role Phone Unavailable Primary Care Provider Unavailabl e Encounter Details Date Type Department Care Team (Late st Contact Info) Description 08/22/2018 Transcribed Document [facility] [place] Medicine [facility] [place] [address] ProviderMariela MD [facility] [place], [place] [phone] Social History Tobacco Use Types Packs/Day Years [...] Mariela ProviderMD - 08/22/2018 9:14 AM CDT [facility] [place] Summary Primary Physician: NIMO EPPS MD-ORT Finalized Date/Time: 08/22/18 12:13:23 Pt. Name: SFOIA GILL Eufemia Bal/Sex: 1940 Female Med Rec #: [id number] Physician: NIMO EPPS MD-ORT Financial #: [id number] Pt. Type: O Room/Bed: Admit/Disch: 08/22/18 04:51:00 - Institution: [facility] OR PACU Case Times Entry 1 In PACU I 08/22/18 11:07:00 Ready for PACU 08/22/18 12:00:00 Discharge Discharge from PACU 08/22/18 12:15:00 I Last Modified By: Layla Rapp RN 08/22/18 12:13:07 [facility] Main OR PACU Case Times Audit 08/22/18 12:13:07 Industrial Arts Teacher: [email or web address] Modifier: [email or web address] 1 <*> Ready for PACU Discharge 08/22/18 12:12:00 1 <*> Discharge from PACU I 08/22/18 12:12:00 08/22/18 12:12:55 Industrial Arts Teacher: [email or web address] Modifier: [email or web address] <+> 1 Ready for [...]
--- OUTSIDE RECORDS SUMMARY | 2024-11-29 09:44 | XMS_ITS | Encounter Summary ---
Author Organization [employer] ([place], [place], [place], [place]) Address [address] [place] [address] Care Team Providers Care Agri Business Agent Name Role Phone Unavailable Primary Care Provider Unavailabl e Encounter Details Date Type Department Care Team (Late st Contact Info) Description 06/28/2019 Transcribed Document [facility] [place] [address] [place] [address] ProviderMariela MD [address] [place] [address] Social History Tobacco Use Types Packs/Day Years [...]
--- OUTSIDE RECORDS SUMMARY | 2024-11-29 09:44 | XMS_ITS | Encounter Summary ---
Author Organization [employer] ([place], [place], [place], [place]) Address [address] [place] [address] Care Team Providers Care Templer Head Name Role Phone Unavailable Primary Care Provider Unavailabl e Encounter Details Date Type Department Care Team (Late st Contact Info) Description 06/17/2019 Transcribed Document [facility] [place] [facility] [place] [address] ProviderMariela MD [address] [place], [place] [id number] Social History Tobacco Use Types Packs/Day Years [...] 06/17/2019 10:06 EDT by Charleen Ortiz Social Worker-Casserole Preparer Initial Assessment I Previously Documented Living Environment [...] Guardianship Needed : No Charleen Ortiz Social Worker-Casserole Preparer - 06/17/2019 10:06 EDT Initial Assessment II [...] Acute Care Facility, Home with home health, long-term facility Current Home Treatment/Equipment : Current Home [...] phone. Pt reports she resides alone at [address] [place] [address]. Pt reports she primarily uses a walker [...] here. Continue to follow.... Charleen Ortiz Social Worker-Casserole Preparer - 06/17/2019 10:06 EDT documented in this encounter Plan of Treatment Not on file documented as of this encounter Visit Diagnoses Not on filedocumented in this encounter
--- OUTSIDE RECORDS SUMMARY | 2024-11-29 09:44 | XMS_ITS | Encounter Summary ---
Author Organization [facility] Address [address] [place] [address] Care Team Providers Care Gaming Commissioner Name Role Phone Gracia Cleaning Dr Primary Care Provider Unavailabl e Encounter Details Date Type Department Care Team (Late Contact Info) Description 10/16/2024 [facility] [address] [facility] [address] [place] [address] Charleen Leblanc RN Social History Tobacco Use [...] Upcoming Encounters Date Type Department Care Team ([facility] Contact Info) Description 11/12/2025 11:15 AM EDT [facility] [address] [place] [address] Deepa Lama MD [address] [facility] [address] [place] [address] documented as of this encounter Visit Diagnoses Not on filedocumented in this encounter Care Teams Gaming Commissioner Relationship Specialty Start Date End Date Gracia Cleaning Dr. PCP - General 09/18/24 documented as of this encounter
--- OUTSIDE RECORDS SUMMARY | 2024-11-29 09:44 | XMS_ITS | Encounter Summary ---
Author Organization [employer] ([place], [place], [place], [place]) Address [address] [place] [address] Care Team Providers Care Barrel Header Name Role Phone Unavailable Primary Care Provider Unavailabl e Encounter Details Date Type Department Care Team (Late st Contact Info) Description 07/13/2019 Transcribed Document [facility] Radiology [address] [place] [address] Shawanda Barahona MD [address] [place] [phone] Social History Tobacco Use Types Packs/Day Years [...] (JULY 06) L 2.9 (JULY 05) Micro: [facility]: 06/15 [facility] Blood cultures positive for group [...]
--- OUTSIDE RECORDS SUMMARY | 2024-11-29 09:44 | XMS_ITS | Encounter Summary ---
Author Organization [employer] ([place], [place], [place], [place]) Address [address] [place] [address] Care Team Providers Care Slag Motor Operator Name Role Phone Unavailable Primary Care Provider Unavailabl e Encounter Details Date Type Department Care Team (Late st Contact Info) Description 06/29/2019 Transcribed Document [facility] [place] [address] [place] [address] ProviderMariela MD [address] [place] [id number] Social History Tobacco Use Types [...] Bibi Gallagher RN - 06/29/2019 3:42 EDT Electronically signed by Chantal [facility] Conversion Legal Document Specialist Min at 06/16/2022 8:11 PM CDT documented in this encounter Plan of Treatment Not on file documented as of this encounter Visit Diagnoses Not on filedocumented in this encounter
--- OUTSIDE RECORDS SUMMARY | 2024-11-29 09:44 | XMS_ITS | Encounter Summary ---
Author Organization [employer] ([place], [place], [place], [place]) Address [address] [place] [address] Care Team Providers Care Scientific Recruiter Name Role Phone Unavailable Primary Care Provider Unavailabl e Encounter Details Date Type Department Care Team (Late st Contact Info) Description 06/28/[address] [facility] [place] Medicine [facility] [place] [address] ProviderMariela MD [address] [place] [address] Social History Tobacco Use Types Packs/Day Years [...] 06/28/2019 9:26 EDT Electronically signed by Chantal [facility] Conversion Tool Design Drafter Cerner at 06/16/2022 8:28 PM CDT documented in this encounter Plan of Treatment Not on file documented as of this encounter Visit Diagnoses Not on filedocumented in this encounter
--- OUTSIDE RECORDS SUMMARY | 2024-11-29 09:44 | XMS_ITS | Encounter Summary ---
Author Organization [employer] ([place], [place], [place], [place]) Address [address] [place] [address] Care Team Providers Care Wellfield Technician Name Role Phone Unavailable Primary Care Provider Unavailabl e Encounter Details Date Type Department Care Team (Late st Contact Info) Description 06/17/2019 Transcribed Document [facility] [place] [facility] [place] [address] ProviderMariela MD [address] [place], [place] [phone] Social History Tobacco Use Types Packs/Day Years [...] Policy Numbers : Insurance 1 Health Plan: [facility] MEDICARE ADVANTAGE Policy Number: [id number] Authorization Number: Insurance Primary Name : [facility] MEDICARE ADVANTAGE Policy Number: [id number] Authorization Status-Primary : Pending clinicals Authorized Service Begin Date-Primary : 06/16/2019 EDT Authorization Comments-Primary : Attempted auth on [facility] portal, message that notification cannot be completed online, Call number on back of card Historical Authorization Comments-Primary : No Authorization Comments Found Michelle Jimenez Rn-Utilization Review - 06/17/2019 10:02 EDT documented in this encounter Plan of Treatment Not on file documented as of this encounter Visit Diagnoses Not on filedocumented in this encounter
--- OUTSIDE RECORDS SUMMARY | 2024-11-29 09:45 | XMS_ITS | Encounter Summary ---
Author Organization [employer] ([place], [place], [place], [place]) Address [address] [place] [address] Care Team Providers Care Purler Name Role Phone Unavailable Primary Care Provider Unavailabl e Encounter Details Date Type Department Care Team (Late st Contact Info) Description 06/26/2019 Transcribed Document [facility] [place] Family Medicine [facility] [place] [address] ProviderMariela MD [facility] [place], [place] [id number] Social History Tobacco Use Types Packs/Day Years [...] Sy Legal Guardian : No Support Person/Patient Asbestos Handler : Yes Support Person/Pt Rep Name : aSm Barlow Contact Password : Keily Support Person/Pt Rep Contact Information : son Vipul) [phone] (Nancy Rust [phone] Want Family/Rep/Phys Notified of Admit : No Emergency Contact #1 : Sam Barlow Emergency Contact #1 Emergency Contact #1 Relationship : Son Emergency Contact #2 : Sy Barlow Emergency Contact #2 Emergency Contact #2 Relationship : Son Primary Language : Macanese Preferred Communication Mode : Verbal Communication Barrier [...] Scale Risk Level : 25-45 Medium Risk [place] Fall Interventions : Adequate lighting, Assistive devices [...] Source : Chart Height Entry Format : Gilliam Height, Feet : 4 ft(Converted to: 122 cm, 48 Inch) Height, Inches : 11 Inch(Converted to: 0 ft 11 Inch, 27.94 cm) Clinical Height : 149.86 cm Weight Source : Bed scale Weight Entry Format : [place]illiam [place] Body Weight : 43 kg KASSI WATSON [...] KASSI WATSON RN - 06/26/2019 18:38 EDT [place] Suicide Severity Rating Scale (C-SSRS) CSSRS Past [...]
--- OUTSIDE RECORDS SUMMARY | 2024-11-29 09:45 | XMS_ITS | Encounter Summary ---
Author Organization [employer] ([place], [place], [place], [place]) Address [address] [place] [address] Care Team Providers Care Rotary Drier Operator Name Role Phone Unavailable Primary Care Provider Unavailabl e Encounter Details Date Type Department Care Team (Late st Contact Info) Description 06/18/2019 Transcribed Document [facility] [place] [address] ProviderMariela MD [address] [place] [address] Social History Tobacco Use Types [...] Daily fluticasone 50 mcg/inh nasal spray, 2 [place], Nostrils Both, BID, PRN gabapentin, 300 mg= [...] BID fluticasone 50 mcg/inh nasal spray, 2 [place], Nostrils Both, BID, PRN Lasix 40 mg [...] FEMORAL W SYNTH SUB, CEMENT, OPEN (10/26/2016), [place] filter, lap band gastric bypass, left knee ORIF, left shoulder ORIF, left TKA, left TSA, revision left TKA, right RCR, x 2. Allergies amLODIPine valdecoxib Bextra (Itching) Latex (Itching) Mobic (Itching) Naprosyn (Itching) etodolac (Itching) penicillin (Shortness of breath) phentermine (unknown reaction) sulfa drugs (Itching) Electronically signed by Chantal [facility] Conversion Ornamental Bronze Worker Cerner at 06/16/2022 8:06 PM CDT documented in this encounter Plan of Treatment Not on file documented as of this encounter Visit Diagnoses Not on filedocumented in this encounter
--- OUTSIDE RECORDS SUMMARY | 2024-11-29 09:45 | XMS_ITS | Encounter Summary ---
Author Organization [employer] ([place], [place], [place], [place]) Address [address] [place] [address] Care Team Providers Care Assurance Assistant Name Role Phone Unavailable Primary Care Provider Unavailabl e Encounter Details Date Type Department Care Team (Late st Contact Info) Description 06/26/2019 Transcribed Document [facility] [place] [address] [place] [address] ProviderMariela MD [address] [place] [address] Social History Tobacco Use Types Packs/Day Years [...] Electronically signed by Maureen Cornejo Conversion Manufacturing Technology Analyst Min at 06/16/2022 8:17 PM CDT documented in this encounter Plan of Treatment Not on file documented as of this encounter Visit Diagnoses Not on filedocumented in this encounter
--- OUTSIDE RECORDS SUMMARY | 2024-11-29 09:45 | XMS_ITS | Encounter Summary ---
Author Organization [employer] ([place], [place], [place], [place]) Address [address] [place] [address] Care Team Providers Care Spray Ii Painter Name Role Phone Unavailable Primary Care Provider Unavailabl e Encounter Details Date Type Department Care Team (Late st Contact Info) Description 08/20/2020 Transcribed Document [facility] [place] [facility] [place] [address] ProviderMariela MD [facility] [place] [address] Social History Tobacco Use Types [...]
--- OUTSIDE RECORDS SUMMARY | 2024-11-29 09:45 | XMS_ITS | Encounter Summary ---
Author Organization [employer] ([place], [place], [place], [place]) Address [address] [place] [address] Care Team Providers Care Supervisor Dials Name Role Phone Unavailable Primary Care Provider Unavailabl e Encounter Details Date Type Department Care Team (Late st Contact Info) Description 08/20/2020 Transcribed Document [facility] [place] [facility] [place] [address] ProviderMariela MD [address] [place] [address] Social History Tobacco Use Types Packs/Day [...]
--- OUTSIDE RECORDS SUMMARY | 2024-11-29 09:45 | XMS_ITS | Encounter Summary ---
Author Organization [employer] ([place], [place], [place], [place]) Address [address] [place] [address] Care Team Providers Care Store Director Name Role Phone Unavailable Primary Care Provider Unavailabl e Encounter Details Date Type Department Care Team (Late st Contact Info) Description 07/11/2019 Transcribed Document [facility] [place] Family Medicine [address] [place] [address] ProviderMariela MD [address] [place], [place] [id number] Social History Tobacco Use Types Packs/Day Years [...] Georgina Olivo RN - 07/11/2019 5:07 EDT Electronically signed by Maureen Cornejo Conversion Dowel Inserting Machine Operator Min at 06/16/2022 8:15 PM CDT documented in this encounter Plan of Treatment Not on file documented as of this encounter Visit Diagnoses Not on filedocumented in this encounter
--- OUTSIDE RECORDS SUMMARY | 2024-11-29 09:45 | XMS_ITS | Encounter Summary ---
Author Organization [employer] ([place], [place], [place], [place]) Address [address] [address] Care Team Providers Care Office Electrician Name Role Phone Unavailable Primary Care Provider Unavailabl e Encounter Details Date Type Department Care Team (Late st Contact Info) Description 06/26/2019 Transcribed Document [facility] [place] [facility] [place] [address] ProviderMariela MD [address] [place] [address] Social History Tobacco Use Types [...] of blood. Pt scheduled to DC from [facility] at 1700 on this date. Notification : Will attempt again as time permits. ROBERT HAIRSTON OTR/Bartolo - 06/26/2019 11:55 EDT documented in this encounter Plan of Treatment Not on file documented as of this encounter Visit Diagnoses Not on filedocumented in this encounter
--- OUTSIDE RECORDS SUMMARY | 2024-11-29 09:45 | XMS_ITS | Encounter Summary ---
Author Organization [employer] ([place], [place], [place], [place]) Address [address] [place] [address] Care Team Providers Care Technician Terminal And Repeater Name Role Phone Unavailable Primary Care Provider Unavailabl e Encounter Details Date Type Department Care Team (Late st Contact Info) Description 08/22/2018 Transcribed Document [facility] [place] [facility] [place] [address] ProviderMariela MD [address] [place] [address] Social History Tobacco Use Types Packs/Day [...]
--- OUTSIDE RECORDS SUMMARY | 2024-11-29 09:45 | XMS_ITS | Encounter Summary ---
Author Organization [employer] ([place], [place], [place], [place]) Address [address] [place] [address] Care Team Providers Care Interpreter And Translator Name Role Phone Unavailable Primary Care Provider Unavailabl e Encounter Details Date Type Department Care Team (Late st Contact Info) Description 08/24/2020 Transcribed Document [facility] [place] [address] ProviderMariela MD [address] [place] [address] Social History Tobacco Use Types Packs/Day [...]
--- OUTSIDE RECORDS SUMMARY | 2024-11-29 09:45 | XMS_ITS | Encounter Summary ---
Author Organization [employer] ([place], [place], [place], [place]) Address [address] [place] [address] Care Team Providers Care Blanket Weaver Name Role Phone Unavailable Primary Care Provider Unavailabl e Encounter Details Date Type Department Care Team (Late st Contact Info) Description 08/24/2020 Transcribed Document [facility] [place] [facility] [place] [address] ProviderMariela MD [place] [address] Social History Tobacco Use Types [...]
--- OUTSIDE RECORDS SUMMARY | 2024-11-29 09:45 | XMS_ITS | Encounter Summary ---
Author Organization [employer] ([place], [place], [place], [place]) Address [address] [place] [address] Care Team Providers Care Carton Catcher Name Role Phone Unavailable Primary Care Provider Unavailabl e Encounter Details Date Type Department Care Team (Late st Contact Info) Description 08/20/2020 Transcribed Document [facility] Family Medicine [facility] [place] [address] ProviderMariela MD [facility] [place] [address] Social History Tobacco Use Types [...] S /Sex: 1940 Female Med Rec #: [id number] Physician: NIMO EPPS MD-ORT Financial #: [id number] Pt. Type: I Room/Bed: [facility]/ Admit/Disch: 08/20/20 04:48:00 - Institution: [facility] IntraOp Case Attendance Entry 1 Entry 2 Entry 3 Case Attendee NIMO EPPS Moore, Kelly E, RN Zamora, Radha, Scrub MD-ORT Tech Role Performed Surgeon/Proceduralist, Documentation Lead, First Scrub, First First Time In 08/20/20 [...] OMAR JIMENEZ, ESTEBAN Role Performed Vendor Vendor Road Cleaner, First Time In 08/20/20 15:29:00 08/20/20 15:29:00 [...] KELLY, CRNA Role Performed Scrub, Second Physician catering assistant SILO FILLER/Nurse Supervisor Continuous W[employer] Pipe Mill Time In 08/20/20 15:29:00 08/20/20 15:29:00 08/20/20 [...] APRN, MARX, CONNIE, EDDIE OTHER, ATTENDEE #5 SILO FILLER-ANS Role Performed SILO FILLER/Nurse Supervisor [employer] Documentation Lead, First Vendor Time In 08/20/20 17:39:00 08/20/20 [...] SJE IntraOp Case Attendance Audit 08/20/20 20:29:47 Assistant Principal: LILLIANO Modifier: MARXCO 1 <+> Time Out [...] Joint Revision, Patella Tendon Repair 08/20/20 19:27:35 Assistant Principal: SUNDAYLLER Modifier: MARXCO 1 <*> Procedure Knee [...] Joint Revision, Patella Tendon Repair 08/20/20 18:09:39 Assistant Principal: ELÍAS Modifier: DAVIDER 2 <+> Time Out [...] Procedure <+> 13 Other Attendee 08/20/20 17:40:02 Assistant Principal: ELÍAS Modifier: SUNDAYLLER 9 <+> Time Out 9 <*> Procedure Knee Total Joint Revision, Patella Tendon Repair <+> 10 Case Attendee <+> 10 Role Performed <+> 10 Time In <+> 10 Procedure <+> 10 Other Attendee 08/20/20 17:16:38 Assistant Principal: SUNDAYLLER Modifier: KEMILLER 1 <*> Procedure Knee [...] Procedure Knee Total Joint Revision 08/20/20 17:16:26 Assistant Principal: RHETTMILLER Modifier: KEMILLER 1 <*> Procedure Patella [...] Fixation, Knee Total Joint Revision 08/20/20 16:36:51 Assistant Principal: RHETTMILLER Modifier: KEMILLER <+> 1 Procedure <+> 3 Procedure 5 <*> Role Performed Refinery Operator Reforming Unit, Ancillary 5 <*> Procedure Patella Open Reduction Internal Fixation, Knee Total Joint Revision 5 <*> Other Attendee MATEO ANNDAGOBERTO 9 <*> Case Attendee SERENITY RODRÍGUEZ, DRUG SAFETY DATA MANAGEMENT SPECIALIST, SILO FILLER-ANS 9 <*> Procedure Patella Open Reduction Internal Fixation 08/20/20 16:30:48 Assistant Principal: SUNDAYLLER Modifier: KEMILLER 2 <*> Case Attendee OZZIE ALTAMIRANO, RN 2 <*> Procedure Patella Open Reduction Internal Fixation, Knee Total Joint Revision 08/20/20 16:13:35 Assistant Principal: DEE Modifier: KEMILLER <+> 1 Time In [...] Patella Open Reduction Internal Fixation 08/20/20 14:42:56 Assistant Principal: DEE Modifier: DEE 1 <*> Case Attendee NIMO EPPS, -ORT 1 <*> Role Performed Surgeon/Proceduralist, First 2 <*> Case Attendee OZZIE ALTAMIRANO, RN 2 <*> Role Performed Documentation Lead, First 2 <*> Procedure Patella Open Reduction Internal Fixation, Knee Total Joint Revision 3 <*> Case Attendee Radha Zamora, Warper Fixer 3 <*> Role Performed Scrub, First 4 <*> Case Attendee OTHER, ATTENDEE #1 4 <*> Role Performed Vendor 4 <*> Procedure Patella Open Reduction Internal Fixation, Knee Total Joint Revision 4 <*> Other Attendee KRISTEN CLEARY 5 <*> Case Attendee OTHER, ATTENDEE #2 5 <*> Role Performed Refinery Operator Reforming Unit, Ancillary 5 <*> Procedure Patella Open Reduction Internal Fixation, Knee Total Joint Revision 5 <*> Other Attendee MATEO MUNSON 6 <*> Case Attendee OMAR JIMENEZ CSA 6 <*> Role Performed Road Cleaner, First 6 <*> Procedure Patella Open Reduction Internal Fixation, Knee Total Joint Revision Entry 7 was deleted. Higher numbered entries shifted one position to fill the gap. <-> 7 Case Attendee JOSE AQUINO CRNA <-> 7 Role Performed SILO FILLER/Nurse Supervisor Continuous W[employer]ipe [employer] <-> 7 Procedure Patella Open Reduction Internal Fixation, Knee Total Joint Revision 8 <*> Case Attendee YUNIOR DUBOSE 8 <*> Role Performed Scrub, Second 8 <*> Procedure Patella Open Reduction Internal Fixation, Knee Total Joint Revision 08/20/20 14:41:02 Assistant Principal: DEE Modifier: DEE <+> 8 Case Attendee <+> 8 Role Performed <+> 8 Procedure <+> 9 Case Attendee <+> 9 Role Performed <+> 9 Procedure 08/20/20 14:23:34 Assistant Principal: DEE Modifier: LEINSU <+> 7 Case Attendee <+> 7 Role Performed <+> 7 Procedure 08/20/20 14:03:40 Assistant Principal: JEFFERYNSU Modifier: LEINSU <+> 6 Case Attendee [...] SJE IntraOp Case Times Audit 08/20/20 20:29:45 Assistant Principal: RHETTMILLER Modifier: MARXCO <+> 1 Out Room [...] 16:49:26 SJE IntraOp Cautery Audit 08/20/20 16:49:26 Assistant Principal: RHETTMILLER Modifier: KEMILLER 1 <*> Grounding Pad Site Left Lower Abdomen 1 <*> Grounding Pad Applied By Radha Zaomra Warper Fixer 08/20/20 16:18:19 Assistant Principal: MICHAELU Modifier: KEMILLER 1 <*> Grounding Pad Applied By OZZIE ALTAMIRANO RN SJE IntraOp Communication Entry 1 Entry 2 Communication To Family/Significant other Family/Significant other Comment START UPDATE Communication By Pamela Macario RN Pamela Macario, RN Date and Time 08/20/20 16:08:00 08/20/20 17:37:00 Last Modified By: Pamela Macario RN Moore, Kelly E, EDDIE 08/20/20 16:50:37 08/20/20 17:48:49 SJE IntraOp Communication Audit 08/20/20 17:48:49 Assistant Principal: RHETTMILLER Modifier: KEMILLER <+> 2 Communication By <+> 2 Date and Time <+> 2 Communication To <+> 2 Comment 08/20/20 16:50:37 Assistant Principal: KEMILLER Modifier: KEMILLER 1 <*> Communication By Radha Zamora, Warper Fixer 1 <+> Date and Time 1 <+> Comment 08/20/20 16:13:59 Assistant Principal: DEE Modifier: KEMILLER 1 <*> Communication By [...] SJE IntraOp Counts Verification Audit 08/20/20 19:08:54 Assistant Principal: ELÍAS Modifier: MARXCO <+> 2 Procedure <+> 2 Count Type <+> 2 Counts Verification Sequence <+> 2 Count Performed By (Scrub) <+> 2 Count Performed By (RN) 08/20/20 17:16:40 Assistant Principal: SUNDAYLLER Modifier: KEMILLER 1 <*> Procedure Knee Total Joint Revision 08/20/20 17:16:27 Assistant Principal: RHETTMILLER Modifier: KEMILLER 1 <*> Procedure Patella Open Reduction Internal Fixation, Knee Total Joint Revision 08/20/20 16:46:11 Assistant Principal: KEMILLER Modifier: KEMILLER 1 <*> Procedure Patella Open Reduction Internal Fixation, Knee Total Joint Revision 1 <*> Count Type Sponge, Sharps 1 <*> Count Results Intentional retention 1 <*> Count Performed By (RN) Radha Zamora Scrub Tech 08/20/20 16:13:50 Assistant Principal: DEE Modifier: KEMILLER 1 <*> Procedure Patella [...] SJE IntraOp Counts Final Audit 08/20/20 19:56:39 Assistant Principal: SUNDAYLLJOSETTE Modifier: MARXCO 1 <*> Procedure Knee Total Joint Revision, Patella Tendon Repair 1 <+> Count Performed By (Scrub) 1 <+> Count Performed By (RN) 08/20/20 17:16:41 Assistant Principal: ELÍAS Modifier: KEMILLER 1 <*> Procedure Knee Total Joint Revision 08/20/20 17:16:28 Assistant Principal: DEE Modifier: KEMILLER 1 <*> Procedure Patella Open Reduction Internal Fixation, Knee Total Joint Revision SJE IntraOp Cultures and Spec Summary Entry 1 Cultrures and Specimens Specimen Ordered: Yes Test(s) Routine/Path-Lab, Requested/Final Culture(s)/Microbiology, Disposition Frozen Section(s)/Path-Lab Last Modified By: Pamela Macario RN 08/20/20 16:46:57 SJE IntraOp Cultures and Spec Summary Audit 08/20/20 16:46:57 Assistant Principal: DEE Modifier: SUNDAYLLER 1 <*> Test(s) Requested/Final [...] IntraOp Dressing and Packing Audit 08/20/20 20:28:07 Assistant Principal: ELÍAS Modifier: JUSTINEXCO 1 <*> Supplemental Applications Cold pack, Limb immobilizer SJE IntraOp Fire Risk Assessment Entry 1 Fire Info Surgical Site or 0- No Incision Above the Xyphoid Open O2 Source 0- No (Mask or Cannula) Available Ignition 1- Yes (ESU, Laser, Light Source) Fire Risk 1 Assessment Score Fire Score Fire Risk Yes Assessment Complete Fire Risk Pamela Macario, service unit operator oil well Verified By Fire Risk 08/20/20 15:29:00 Assessment Verified Date/Time Fire Risk High Risk Protocol Yes Implemented Standard Fire Yes Safety Precautions Followed Last Modified By: Pamela Macario RN 08/20/20 16:38:35 SJE IntraOp Fire Risk Assessment Audit 08/20/20 16:38:35 Assistant Principal: ELÍAS Modifier: ELÍAS 1 <*> Fire Risk Assessment Verified By Rdaha Zamora Scrub Tech 08/20/20 16:14:04 Assistant Principal: ELÍAS Modifier: ELÍAS 1 <*> Fire Risk Assessment Verified By OZZIE ALTAMIRANO, EDDIE Tita IntraOp General Case Cytogenetic Technologist 1 Case Information OR OR 05 [facility] Case Level 1 Room Verified Yes Wound Class I - Clean Specialty Orthopedic Anesthesia Type General ASA Class 3 Diagnosis Preop Diagnosis RIGHT KNEE PAIN S/P TOTAL JOINT Postop Same As Preop No Postop Diagnosis SEE MD POST OP NOTE Last Modified By: Pamela Macario RN 08/20/20 16:38:56 SJE IntraOp General Case Data Audit 08/20/20 16:38:56 Assistant Principal: DEE Modifier: KEMILLER <+> 1 Postop Same As Preop <+> 1 Preop Diagnosis <+> 1 Postop Diagnosis SJE IntraOp Implant Log Entry 1 Entry 2 Entry 3 Type Implant (Synthetic) Implant (Synthetic) Implant (Synthetic) Implant Log Implant Type Mesh Bone Cement Cochlear Tissue Implant Type Implant MESH HANG FLAT SHT CEMENT BONE COBALT HV IMP LEGION HK 11 Identification [id number] Description Implant Quantity 1 2 1 Implant Site RIGHT PATELLAR TENDON right knee right knee Implant Identification Model Number Implant Identification Serial Number Implant [id number] Identification Lot Number Implant Cr Bard:Jamar Franks Surg:[employer] Ovalle & Nephew:Ortho Identification Med:[place] Industrial Chemistry Teacher Name: Implant [id number] Identification Catalog Number Implant Size Implant Has an Yes Yes Expiration Date Implant Expiration 07/26/24 11/22/20 05/27/29 Date Wasted Radioactive Material Time Implanted Tissue Implant Continue for Tissue Implant Documentation Tissue Identification Number Graft Prep Per Industrial Chemistry Teacher Instructions: Tissue Preparation Method: Reconstitution Solution: Reconstitution Solution Lot Number Reconstitution Solution Expiration Date: Thawing Solution Thawing Solution Lot Number Thawing Solution Expiration Date Preparation Materials, Other Preparation Materials, Other Lot Number Preparation Materials, Other Expiration Date Tissue Prepared/Processed By Industrial Chemistry Teacher Paperwork Completed Implant Type Comment Last Modified By: Pamela Macario RN MARX, CONNIE, RN MARX, CONNIE, RN 08/20/20 17:15:37 08/20/20 19:07:44 08/20/20 19:07:44 Entry 4 Entry 5 Entry 6 Type Implant (Synthetic) Implant (Synthetic) Implant (Synthetic) Implant Log Implant Type Hardware Hardware Hardware Tissue Implant Type Implant LGN HK GD MOTION 11MM STEM PRESSFIT LEGION tibial wedge Identification [id number] Description Implant Quantity 1 1 1 Implant Site right knee right knee right knee Implant [id number] Identification Model Number Implant Identification Serial Number Implant [id number] Identification Lot Number Implant Ovalle & Nephew:Ortho Ovalle & Nephew:Ortho ovalle&nephew Identification Industrial Chemistry Teacher Name: Implant [id number] Identification Catalog Number Implant Size 5mm,size 3-4 Implant Has an Yes Yes Yes Expiration Date Implant Expiration 03/12/28 01/31/28 02/06/28 Date Wasted Radioactive Material Time Implanted Tissue Implant Continue for Tissue Implant Documentation Tissue Identification Number Graft Prep Per Industrial Chemistry Teacher Instructions: Tissue Preparation Method: Reconstitution Solution: Reconstitution Solution Lot Number Reconstitution Solution Expiration Date: Thawing Solution Thawing Solution Lot Number Thawing Solution Expiration Date Preparation Materials, Other Preparation Materials, Other Lot Number Preparation Materials, Other Expiration Date Tissue Prepared/Processed By Industrial Chemistry Teacher Paperwork Completed Implant Type Comment Last Modified By: LINDA SAVAGE RN MARX, CONNIE, RN MARX, CONNIE, RN 08/20/20 19:07:44 08/20/20 19:07:44 08/20/20 19:07:44 Entry 7 Entry 8 Entry 9 Type Implant (Synthetic) Implant (Synthetic) Implant (Synthetic) Implant Log Implant Type Hardware Grafts, non-biological Hardware Tissue Implant Type Implant BASEPLT TIB LEGN HK F tibial wedge BUNDLE BREAKER OFFSET LEGION Identification [id number] [id number] Description Implant Quantity 1 1 1 Implant Site right knee right knee right knee Implant [id number] Identification Model Number Implant Identification Serial Number Implant [id number] Identification Lot Number Implant Ovalle & Nephew:Ortho Ovalle & Nephew:Ortho Identification Industrial Chemistry Teacher Name: Implant [id number] Identification Catalog Number Implant Size 5mm, 3-4 Implant Has an Yes Yes Yes Expiration Date Implant Expiration 09/08/27 03/31/30 Date Wasted Radioactive Material Time Implanted Tissue Implant Continue for Tissue Implant Documentation Tissue Identification Number Graft Prep Per Industrial Chemistry Teacher Instructions: Tissue Preparation Method: Reconstitution Solution: Reconstitution Solution Lot Number Reconstitution Solution Expiration Date: Thawing Solution Thawing Solution Lot Number Thawing Solution Expiration Date Preparation Materials, Other Preparation Materials, Other Lot Number Preparation Materials, Other Expiration Date Tissue Prepared/Processed By Industrial Chemistry Teacher Paperwork Completed Implant Type Comment Last Modified By: LINDA SAVAGE, LINDA FRY, LINDA FRY RN 08/20/20 19:07:44 08/20/20 19:07:44 08/20/20 19:07:44 Entry 10 Entry 11 Entry 12 Type Implant (Synthetic) Implant (Synthetic) Implant (Synthetic) Implant Log Implant Type Hardware Hardware Hardware Tissue Implant Type Implant FEMORAL WEDGE DIS 5MM FEMORAL WEDGE DIS 5MM STEM PRESSFIT LEGION Identification [id number] --[id number] Description Implant Quantity 1 1 1 Implant Site right knee right knee right knee Implant Identification Model Number Implant Identification Serial Number Implant [id number] Identification Lot Number Implant Ovalle & Nephew:Ortho Ovalle & Nephew:Ortho Ovalle & Nephew:Ortho Identification Industrial Chemistry Teacher Name: Implant [id number] Identification Catalog Number Implant Size Implant Has an Yes Yes Yes Expiration Date Implant Expiration 10/04/27 04/29/21 05/24/26 Date Wasted Radioactive Material Time Implanted Tissue Implant Continue for Tissue Implant Documentation Tissue Identification Number Graft Prep Per Industrial Chemistry Teacher Instructions: Tissue Preparation Method: Reconstitution Solution: Reconstitution Solution Lot Number Reconstitution Solution Expiration Date: Thawing Solution Thawing Solution Lot Number Thawing Solution Expiration Date Preparation Materials, Other Preparation Materials, Other Lot Number Preparation Materials, Other Expiration Date Tissue Prepared/Processed By Industrial Chemistry Teacher Paperwork Completed Implant Type Comment Last Modified By: LINDA SAVAGE, LINDA FRY RN MARX, CONNIE, RN 08/20/20 19:07:44 08/20/20 19:07:44 08/20/20 19:07:44 Entry 13 Entry 14 Type Implant (Synthetic) Implant (Synthetic) Implant Log Implant Type Hardware Hardware Tissue Implant Type Implant BUNDLE BREAKER OFFSET LEGION ASSEMBLY FEM BARB LGN Identification [id number] Description Implant Quantity 1 1 Implant Site right knee right knee Implant Identification Model Number Implant Identification Serial Number Implant [id number] Identification Lot Number Implant Ovalle & Nephew:Ortho Ovalle & Nephew:Ortho Identification Industrial Chemistry Teacher Name: Implant [id number] Identification Catalog Number Implant Size Implant Has an Yes Yes Expiration Date Implant Expiration 11/17/29 01/23/27 Date Wasted Radioactive Material Time Implanted Tissue Implant Continue for Tissue Implant Documentation Tissue Identification Number Graft Prep Per Industrial Chemistry Teacher Instructions: Tissue Preparation Method: Reconstitution Solution: Reconstitution Solution Lot Number Reconstitution Solution Expiration Date: Thawing Solution Thawing Solution Lot Number Thawing Solution Expiration Date Preparation Materials, Other Preparation Materials, Other Lot Number Preparation Materials, Other Expiration Date Tissue Prepared/Processed By Industrial Chemistry Teacher Paperwork Completed Implant Type Comment Last Modified By: LINDA SAVAGE, LINDA FRY RN 08/20/20 19:07:44 08/20/20 19:07:45 [facility] IntraOp Implant Log Audit 08/20/20 19:07:45 Assistant Principal: PATRICIA Modifier: MARXCO <+> 14 Implant Identification Lot Number <+> 14 Implant Identification Industrial Chemistry Teacher Name: <+> 14 Implant Expiration Date <+> 14 Implant Site <+> 14 Implant Identification Catalog Number <+> 14 Implant Has an Expiration Date 08/20/20 19:07:44 Assistant Principal: ELÍAS Modifier: MARXCO <+> 2 Implant Identification Description <+> 2 Implant Identification Lot Number <+> 2 Implant Identification Industrial Chemistry Teacher Name: <+> 2 Implant Expiration Date <+> 2 Implant Site <+> 2 Implant Quantity <+> 2 Implant Identification Catalog Number <+> 2 Implant Type <+> 2 Type <+> 3 Implant Identification Description <+> 3 Implant Identification Lot Number <+> 3 Implant Identification Industrial Chemistry Teacher Name: <+> 3 Implant Expiration Date <+> 3 Implant Site <+> 3 Implant Quantity <+> 3 Implant Identification Catalog Number <+> 3 Implant Type <+> 3 Implant Has an Expiration Date <+> 3 Type <+> 4 Implant Identification Description <+> 4 Implant Identification Lot Number <+> 4 Implant Identification Industrial Chemistry Teacher Name: <+> 4 Implant Expiration Date <+> 4 Implant Site <+> 4 Implant Quantity <+> 4 Implant Identification Catalog Number <+> 4 Implant Type <+> 4 Implant Has an Expiration Date <+> 4 Type <+> 5 Implant Identification Description <+> 5 Implant Identification Lot Number <+> 5 Implant Identification Industrial Chemistry Teacher Name: <+> 5 Implant Expiration Date <+> 5 Implant Site <+> 5 Implant Quantity <+> 5 Implant Identification Catalog Number <+> 5 Implant Type <+> 5 Implant Has an Expiration Date <+> 5 Type <+> 6 Implant Identification Description <+> 6 Implant Identification Lot Number <+> 6 Implant Identification Industrial Chemistry Teacher Name: <+> 6 Implant Size <+> 6 Implant Expiration Date <+> 6 Implant Site <+> 6 Implant Quantity <+> 6 Implant Type <+> 6 Implant Identification Model Number <+> 6 Implant Has an Expiration Date <+> 6 Type <+> 7 Implant Identification Description <+> 7 Implant Identification Lot Number <+> 7 Implant Identification Industrial Chemistry Teacher Name: <+> 7 Implant Site <+> 7 [...] Identification Lot Number <+> 9 Implant Identification Industrial Chemistry Teacher Name: <+> 9 Implant Expiration Date <+> 9 Implant Site <+> 9 Implant Quantity <+> 9 Implant Identification Catalog Number <+> 9 Implant Type <+> 9 Implant Has an Expiration Date <+> 9 Type <+> 10 Implant Identification Description <+> 10 Implant Identification Lot Number <+> 10 Implant Identification Industrial Chemistry Teacher Name: <+> 10 Implant Expiration Date <+> 10 Implant Site <+> 10 Implant Quantity <+> 10 Implant Identification Catalog Number <+> 10 Implant Type <+> 10 Implant Has an Expiration Date <+> 10 Type <+> 11 Implant Identification Description <+> 11 Implant Identification Lot Number <+> 11 Implant Identification Industrial Chemistry Teacher Name: <+> 11 Implant Expiration Date <+> 11 Implant Site <+> 11 Implant Quantity <+> 11 Implant Identification Catalog Number <+> 11 Implant Type <+> 11 Implant Has an Expiration Date <+> 11 Type <+> 12 Implant Identification Description <+> 12 Implant Identification Lot Number <+> 12 Implant Identification Industrial Chemistry Teacher Name: <+> 12 Implant Expiration Date <+> 12 Implant Site <+> 12 Implant Quantity <+> 12 Implant Identification Catalog Number <+> 12 Implant Type <+> 12 Implant Has an Expiration Date <+> 12 Type <+> 13 Implant Identification Description <+> 13 Implant Identification Lot Number <+> 13 Implant Identification Industrial Chemistry Teacher Name: <+> 13 Implant Expiration Date <+> [...] Sequential compression device, knee high Antiembolic Device [id number] ID Number Scopes Photo/Video Documentation Photo No Video No Last Modified By: OZZIE ALTAMIRANO RN 08/20/20 14:32:00 SJE IntraOp Medication Admin Entry 1 Entry 2 Entry 3 Medication/Irrigant TRANEXAMIC ACID vancomycin 1Gm vial - hydrogen peroxide 3% - 1000MG/10 ML [id number] Combo Med List Time Administered Route of [...] SJE IntraOp Patient Positioning Audit 08/20/20 17:16:40 Assistant Principal: ELÍAS Landa: ELÍAS 1 <*> Procedure Knee Total Joint Revision 08/20/20 17:16:27 Assistant Principal: ELÍAS Modifier: SUNDAYLLER 1 <*> Procedure Knee Total Joint Revision 08/20/20 16:18:28 Assistant Principal: DEE Modifier: ELÍAS 1 <*> Body Position [...] Allergies Yes Airway Electronically signed by Chantal [facility] Conversion Dope And Fabric Worker Cerner at 06/16/2022 8:11 PM CDT documented in this encounter Plan of Treatment Not on file documented as of this encounter Visit Diagnoses Not on filedocumented in this encounter
--- OUTSIDE RECORDS SUMMARY | 2024-11-29 09:45 | XMS_ITS | Encounter Summary ---
Author Organization [employer] ([place], [place], [place], [place]) Address [address] [place] [address] Care Team Providers Care Labor Law Professor Name Role Phone Unavailable Primary Care Provider Unavailabl e Encounter Details Date Type Department Care Team (Late st Contact Info) Description 07/10/2019 Transcribed Document [facility] Radiology [address] [place] [address] Shawanda Barahona MD [address] [id number] Social History Tobacco Use Types Packs/Day Years [...] 05) L 1.9 (JULY 03) Micro: [facility]: 06/15 [facility] Blood cultures positive for group [...]
--- OUTSIDE RECORDS SUMMARY | 2024-11-29 09:45 | XMS_ITS | Encounter Summary ---
Author Organization [employer] ([place], [place], [place], [place]) Address [address] [place] [address] Care Team Providers Care Coating Line Worker Name Role Phone Unavailable Primary Care Provider Unavailabl e Encounter Details Date Type Department Care Team (Late st Contact Info) Description 06/26/2019 Transcribed Document [facility] [place] [address] ProviderMariela MD [place] [address] Social History Tobacco Use Types [...] (JUN 22) L 1.4 (JUN 21) Micro: [facility]: 06/15 [facility] Blood cultures positive for group B [...] - wbc down and no fevers continue custodial abx -Monitor H&H and LTAC will monitor UM: IV antibiotics and LTAC documented in this encounter Plan of Treatment Not on file documented as of this encounter Visit Diagnoses Not on filedocumented in this encounter
--- OUTSIDE RECORDS SUMMARY | 2024-11-29 09:45 | XMS_ITS | Encounter Summary ---
Author Organization [employer] ([place], [place], [place], [place]) Address [address] [place] [address] Care Team Providers Care Cyber Forensic Specialist Name Role Phone Unavailable Primary Care Provider Unavailabl e Encounter Details Date Type Department Care Team (Late st Contact Info) Description 08/24/2020 Transcribed Document [facility] [place] [facility] [place] [address] ProviderMariela MD [address] [place] [address] Social History Tobacco Use Types Packs/Day [...] form. Electronically signed by Maureen Cornejo Conversion Semiconductors Wafer Breaker Cerner at 06/16/2022 8:27 PM CDT documented in this encounter Plan of Treatment Not on file documented as of this encounter Visit Diagnoses Not on filedocumented in this encounter
--- OUTSIDE RECORDS SUMMARY | 2024-11-29 09:45 | XMS_ITS | Encounter Summary ---
Author Organization [employer] ([place], [place], [place], [place]) Address [address] [place] [address] Care Team Providers Care Drafter Apprentice Name Role Phone Unavailable Primary Care Provider Unavailabl e Encounter Details Date Type Department Care Team (Late st Contact Info) Description 06/26/2019 Transcribed Document [facility] [place] [facility] [place] [address] ProviderMariela MD [address] [place] [address] Social History Tobacco Use Types [...] On: 06/26/2019 14:56 EDT by DEBORAH CAMPOS RN-Community Development Manager Final Discharge Planning Discharge Arrangements : Patient [...] ANY DME AT DISCHARGE FROM [facility]..DEBORAH BENAVIDEZ, RN-Community Development Manager - 06/26/2019 14:56 EDT Final Narrative Note Final Narrative Note : NURSE AWARE OF D/C PLAN AND WILL CLAL REPORT TO [phone]..D/C SUMMARY COMPLETED..DEBORAH BENAVIDEZ RN-Community Development Manager - 06/26/2019 14:56 EDT documented in this encounter Plan of Treatment Not on file documented as of this encounter Visit Diagnoses Not on filedocumented in this encounter
--- OUTSIDE RECORDS SUMMARY | 2024-11-29 09:45 | XMS_ITS | Encounter Summary ---
Author Organization [employer] ([place], [place], [place], [place]) Address [address] [place] [address] Care Team Providers Care Loan Counselor Name Role Phone Unavailable Primary Care Provider Unavailabl e Encounter Details Date Type Department Care Team (Late st Contact Info) Description 06/26/2019 Transcribed Document [facility] [place] [facility] [place] [address] ProviderMariela MD [facility] [place] [place] [address] Social History Tobacco Use Types Packs/Day Years [...] EDT Electronically signed by Nikunj Cornejo Conversion Mechanical And Auto Body Car Checker Cerner at 06/16/2022 8:19 PM CDT documented in this encounter Plan of Treatment Not on file documented as of this encounter Visit Diagnoses Not on filedocumented in this encounter
--- OUTSIDE RECORDS SUMMARY | 2024-11-29 09:45 | XMS_ITS | Encounter Summary ---
Author Organization [employer] ([place], [place], [place], [place]) Address [address] [place] [address] Care Team Providers Care Overhead Irrigator Name Role Phone Unavailable Primary Care Provider Unavailabl e Encounter Details Date Type Department Care Team (Late st Contact Info) Description 07/11/2019 Transcribed Document [facility] Radiology [address] [place] [address] Shawanda Barahona MD [address] [id number] Social History Tobacco Use Types Packs/Day Years [...] 05) L 1.9 (JULY 03) Micro: [facility]: 06/15 [facility] Blood cultures [...]
--- OUTSIDE RECORDS SUMMARY | 2024-11-29 09:45 | XMS_ITS | Encounter Summary ---
Author Organization [employer] ([place], [place], [place], [place]) Address [address] [place] [address] Care Team Providers Care Area Relief Pilot Name Role Phone Unavailable Primary Care Provider Unavailabl e Encounter Details Date Type Department Care Team (Late st Contact Info) Description 06/26/2019 Transcribed Document [facility] [place] [facility] [place] [address] ProviderMariela MD [address] [place] [address] Social History Tobacco Use Types Packs/Day Years [...] 07/01/2019 22:17 EDT Electronically signed by Chantal [facility] Conversion Printing Sign Machine Operator Cerner at 06/16/2022 8:26 PM CDT documented in this encounter Plan of Treatment Not on file documented as of this encounter Visit Diagnoses Not on filedocumented in this encounter
--- OUTSIDE RECORDS SUMMARY | 2024-11-29 09:45 | XMS_ITS | Encounter Summary ---
Author Organization [employer] ([place], [place], [place], [place]) Address [address] [place] [address] Care Team Providers Care Mountain Services Manager Name Role Phone Unavailable Primary Care Provider Unavailabl e Encounter Details Date Type Department Care Team (Late st Contact Info) Description 06/18/2019 Transcribed Document [facility] [place] [facility] [place] [address] ProviderMariela MD [address] [place] [address] Social History Tobacco Use Types Packs/Day Years [...]
--- OUTSIDE RECORDS SUMMARY | 2024-11-29 09:45 | XMS_ITS | Encounter Summary ---
Author Organization [employer] ([place], [place], [place], [place]) Address [address] [place] [address] Care Team Providers Care Sales Project Manager Name Role Phone Unavailable Primary Care Provider Unavailabl e Encounter Details Date Type Department Care Team (Late st Contact Info) Description 08/22/2018 Transcribed Document [facility] [place] [facility] [place] [address] ProviderMariela MD [address] [place] [address] Social History Tobacco Use Types Packs/Day [...] : 08/22/2018 07:12 Assisted by, OT : clinical trials assistant (PHILATELIC CONSULTANT) Personal Devices : Personal Devices No Devices Recorded Assistive Devices : Assistive Devices Wheelchair Precautions in Place : Fall prevention measures, high risk EDIN DRAKE OTR/Bartolo - 08/24/2018 12:50 EDT General Status Patient Received Status : Supine in bed, Other: polar care, scds Treatment Start Time : 08/24/2018 8:34 EDT Patient Left Status : Other: left seated with PHILATELIC CONSULTANT in therapy gym RN/PCT Informed Comment : [...] EDIN DRAKE OTR/Bartolo - 08/24/2018 12:50 EDT Halfway Goals, OT Other LTG Grid Goal #1 [...] text rendition version of the form. [facility] OT Charges OT Selfcare/Hm Mgmt Ea 15 Min : 2 EDIN DRAKE OTR/Bartolo - 08/24/2018 12:50 EDT documented in this encounter Plan of Treatment Not on file documented as of this encounter Visit Diagnoses Not on filedocumented in this encounter
--- OUTSIDE RECORDS SUMMARY | 2024-11-29 09:45 | XMS_ITS | Encounter Summary ---
Author Organization [employer] ([place], [place], [place], [place]) Address [address] [place] [address] Care Team Providers Care Radio Installer Name Role Phone Unavailable Primary Care Provider Unavailabl e Encounter Details Date Type Department Care Team (Late st Contact Info) Description 08/20/2020 Transcribed Document [facility] [place] [facility] [place] [address] ProviderMariela MD [facility] [place] [address] Social History Tobacco Use Types [...] RN Procedure Case Attendee Role 3 : local company tanker driver Case Attendee 3 : THIERRY GOODRICH, local company tanker driver Case Attendee Role 4 : Observer Procedure Case Attendee 4 : Bridget Jauregui RN ELDER, JEAN M, RN - 08/20/2020 15:22 EDT Electronically signed by Maureen Cornejo Conversion Acoustic Intelligence Specialist Cerner at 06/16/2022 8:11 PM CDT documented in this encounter Plan of Treatment Not on file documented as of this encounter Visit Diagnoses Not on filedocumented in this encounter
--- OUTSIDE RECORDS SUMMARY | 2024-11-29 09:45 | XMS_ITS | Encounter Summary ---
Author Organization [employer] ([place], [place], [place], [place]) Address [address] [place] [address] Care Team Providers Care Seconds Grader Name Role Phone Unavailable Primary Care Provider Unavailabl e Encounter Details Date Type Department Care Team (Late st Contact Info) Description 07/11/2019 Transcribed Document [facility] [place] [facility] [place] [address] ProviderMariela MD [address] [place] [address] Social History Tobacco Use Types Packs/Day Years [...] Historical ProviderMD - 07/11/2019 2:00 AM CDT Service Associate Details Entered On: 07/11/2019 1:43 EDT Performed [...]
--- OUTSIDE RECORDS SUMMARY | 2024-11-29 09:45 | XMS_ITS | Encounter Summary ---
Author Organization [employer] ([place], [place], [place], [place]) Address [address] [place] [address] Care Team Providers Care Roll Reclaimer Name Role Phone Unavailable Primary Care Provider Unavailabl e Encounter Details Date Type Department Care Team (Late st Contact Info) Description 07/11/2019 Transcribed Document [facility] [place] Medicine [facility] [place] [address] ProviderMariela MD [address] [place] [address] Social History Tobacco Use Types Packs/Day Years [...]
--- OUTSIDE RECORDS SUMMARY | 2024-11-29 09:45 | XMS_ITS | Encounter Summary ---
Author Organization [employer] ([place], [place], [place], [place]) Address [address] [place] [address] Care Team Providers Care Supervisor Salvage Name Role Phone Unavailable Primary Care Provider Unavailabl e Encounter Details Date Type Department Care Team (Late st Contact Info) Description 08/24/[address] [facility] [place] [address] ProviderMariela MD [place] [address] Social History Tobacco Use Types [...]
--- OUTSIDE RECORDS SUMMARY | 2024-11-29 09:45 | XMS_ITS | Encounter Summary ---
Author Organization [employer] ([place], [place], [place], [place]) Address [address] [place] [address] Care Team Providers Care Recycler Forklift Driver Truck Driver Name Role Phone Unavailable Primary Care Provider Unavailabl e Encounter Details Date Type Department Care Team (Late st Contact Info) Description 08/20/2020 Transcribed Document [facility] [place] [facility] [place] [address] ProviderMariela MD [facility] [place] [address] Social History Tobacco Use Types [...] S /Sex: 1940 Female Med Rec #: [id number] Physician: NIMO EPPS MD-ORT Financial #: [id number] Pt. Type: I Room/Bed: 428/1 Admit/Disch: 08/20/20 04:48:00 - Institution: [facility] [place] PreOp Case Times Entry 1 In Preop 08/20/20 11:20:00 Ready for Holding n/a Room Patient Ready for 08/20/20 12:30:00 Surgery Patient Out of Preop 08/21/20 15:27:00 Patient Out of n/a Holding Room Last Modified By: KASSI GAY RN 08/21/20 09:12:01 SJE PreOp Case Times Audit 08/21/20 09:12:01 Bioinformatics Computer Scientist: [email or web address] Modifier: SCHROEJ <+> 1 Patient Out of Preop Finalized By: KASSI GAY, RN Document Signatures Signed By: KASSI GAY RN 08/21/20 09:12 documented in this encounter Plan of Treatment Not on file documented as of this encounter Visit Diagnoses Not on filedocumented in this encounter
--- OUTSIDE RECORDS SUMMARY | 2024-11-29 09:45 | XMS_ITS | Encounter Summary ---
Author Organization [employer] ([place], [place], [place], [place]) Address [address] [place] [address] Care Team Providers Care Hospice Music Therapist Name Role Phone Unavailable Primary Care Provider Unavailabl e Encounter Details Date Type Department Care Team (Late st Contact Info) Description 08/22/2018 Transcribed Document [facility] [place] [facility] [place] [address] ProviderMariela MD [address] [place] [id number] Social History Tobacco Use Types Packs/Day Years [...]
--- OUTSIDE RECORDS SUMMARY | 2024-11-29 09:45 | XMS_ITS | Encounter Summary ---
Author Organization [employer] ([place], [place], [place], [place]) Address [address] [place] [address] Care Team Providers Care American History Teacher Name Role Phone Unavailable Primary Care Provider Unavailabl e Encounter Details Date Type Department Care Team (Late st Contact Info) Description 08/20/2020 Transcribed Document [facility] [place] [address] [place] [address] ProviderMariela MD [address] [place] [address] Social History Tobacco Use Types [...] 08/20/2020 14:50 EDT Electronically signed by Chantal [facility] Conversion Telephone Surveyor Cerner at 06/16/2022 8:05 PM CDT documented in this encounter Plan of Treatment Not on file documented as of this encounter Visit Diagnoses Not on filedocumented in this encounter
--- OUTSIDE RECORDS SUMMARY | 2024-11-29 09:46 | XMS_ITS | Encounter Summary ---
Author Organization [employer] ([place], [place], [place], [place]) Address [address] [place] [address] Care Team Providers Care Satellite Tv Installer Name Role Phone Unavailable Primary Care Provider Unavailabl e Encounter Details Date Type Department Care Team (Late st Contact Info) Description 08/25/2020 Transcribed Document [facility] [place] Medicine [address] [place] [address] ProviderMariela MD [address] [place] [address] Social History Tobacco Use Types [...] 08/25/2020 16:44 EDT Electronically signed by Chantal [facility] Conversion Nurse Liaison Cerbryce at 06/16/2022 8:29 PM CDT documented in this encounter Plan of Treatment Not on file documented as of this encounter Visit Diagnoses Not on filedocumented in this encounter
--- OUTSIDE RECORDS SUMMARY | 2024-11-29 09:46 | XMS_ITS | Encounter Summary ---
Author Organization [employer] ([place], [place], [place], [place]) Address [address] [place] [address] Care Team Providers Care Seal Delivery Vehicle Officer Name Role Phone Unavailable Primary Care Provider Unavailabl e Encounter Details Date Type Department Care Team (Late st Contact Info) Description 08/20/2020 Transcribed Document [facility] [place] [address] [place] [address] ProviderMariela MD [address] [place] [address] Social History Tobacco Use Types [...] 08/20/2020 15:22 EDT Electronically signed by Chantal [facility] Conversion Mother Tester Cerner at 06/16/2022 8:26 PM CDT documented in this encounter Plan of Treatment Not on file documented as of this encounter Visit Diagnoses Not on filedocumented in this encounter
--- OUTSIDE RECORDS SUMMARY | 2024-11-29 09:46 | XMS_ITS | Encounter Summary ---
Author Organization [employer] ([place], [place], [place], [place]) Address [address] [place] [address] Care Team Providers Care Telecom Coordinator Name Role Phone Unavailable Primary Care Provider Unavailabl e Encounter Details Date Type Department Care Team (Late st Contact Info) Description 08/22/2018 Transcribed Document [facility] [place] [facility] [place] [address] ProviderMariela MD Replaced by [facility] [place] [address] Social History Tobacco Use Types [...] incision uncovered if it is completely dry. [place] out 2 weeks post op. 6) An [...] Daily fluticasone 50 mcg/inh nasal spray 2 [place], PRN, Nostrils Both, BID Lasix 40 mg [...]
--- OUTSIDE RECORDS SUMMARY | 2024-11-29 09:46 | XMS_ITS | Encounter Summary ---
Author Organization [employer] ([place], [place], [place], [place]) Address [address] [place] [address] Care Team Providers Care Tube Pusher Name Role Phone Unavailable Primary Care Provider Unavailabl e Encounter Details Date Type Department Care Team (Late st Contact Info) Description 07/11/2019 Transcribed Document [facility] [place] [facility] [place] [address] ProviderMariela MD [address] [place] [address] Social History Tobacco Use Types Packs/Day Years [...]
--- OUTSIDE RECORDS SUMMARY | 2024-11-29 09:46 | XMS_ITS | Encounter Summary ---
Author Organization [employer] ([place], [place], [place], [place]) Address [address] [place] [address] Care Team Providers Care Equipment Specialist Name Role Phone Unavailable Primary Care Provider Unavailabl e Encounter Details Date Type Department Care Team (Late st Contact Info) Description 08/20/2020 Transcribed Document [facility] [place] [facility] [place] [address] ProviderMariela MD [facility] [place] [address] Social History Tobacco Use Types [...] EDT Chloraseptic Menthol 1.4% topical spray: 5 Dickey, Oral, Dickey, Q2H, PRN for Sore Throat, Routine, Start [...] 50 mcg/inh nasal spray: 100 mcg, 2 Dickey, Nostrils Both, Dickey, BID, PRN for Allergies, Routine, Start 08/20/20 [...] Refill(s) fluticasone 50 mcg/inh nasal spray: 2 Dickey, Nostrils Both, Dickey, BID, PRN Allergies, 0 Refill(s) furosemide 40 [...] Daily fluticasone 50 mcg/inh nasal spray 2 Dickey, PRN, Nostrils Both, BID furosemide 40 mg [...] fluticasone 0.05% nasal spray 100 mcg 2 Dickey, Nostrils Both, BID magnesium hydroxide 8% liq [...] Oral, Q4H phenol 1.4% throat spray 5 Dickey, Oral, Q2H promethazine 25 mg tab 12.5 mg 0.5 Tab, Oral, Q6H promethazine 25 mg/1 mL inj 12.5 mg 0.5 mL, IV Push, Q6H senna 8.6 mg tab 8.6 mg 1 Tab, Oral, At Bedtime traZODone 50 mg tab 50 mg 1 Tab, Oral, At Bedtime Problem list: Medical Cardiac arrhythmia / SNOMED CT 4429630022 / Confirmed Cataract / SNOMED CT 6395037641 / Confirmed Chronic venous insufficiency / SNOMED CT 39115463 / Confirmed Constipation / SNOMED CT 495960207 / Confirmed Edema - BLE / SNOMED CT 426710376 / Confirmed History of obstructive sleep apnea / IMO [id number] / Confirmed HTN (hypertension) / SNOMED CT 5054318123 / Confirmed Hx: GERD (gastroesophageal reflux disease) / SNOMED CT 4798849225 / Confirmed Hypercholesteremia / SNOMED CT 45098554 / Confirmed Hypothyroid / SNOMED CT 677155639 / Confirmed Kidney cysts right / SNOMED CT 5165750348 / Confirmed Knee pain, bilateral / SNOMED CT 665980542 / Confirmed Lung abnormality right / SNOMED CT 8733012907 / Confirmed Murmur, cardiac / SNOMED CT 4705972425 / Confirmed Osteoarthritis / SNOMED CT 3414299310 / Confirmed Osteoporosis / SNOMED CT 989611072 / Confirmed Pain management / SNOMED CT 352091046 / Confirmed Redness bilateral lower legs / SNOMED CT 1216739846 / Confirmed Seasonal allergies / SNOMED CT 456635926 / Confirmed Shoulder pain, bilateral / SNOMED CT 6115977095 / Confirmed Sleep apnea / SNOMED CT 456862313 / Confirmed, Active Problems (21) Cardiac arrhythmia [...] knee ORIF. lap band. Babak filter. Colonoscopy (412300373). Social History Patient is and has 2 [...] swelling, No deformity, Normal gait. Integumentary: Warm, [place], Intact, No pallor, No rash, WOUND STABLE. [...]
--- OUTSIDE RECORDS SUMMARY | 2024-11-29 09:46 | XMS_ITS | Encounter Summary ---
Author Organization [employer] ([place], [place], [place], [place]) Address [address] [place] [address] Care Team Providers Care Lube Technician Name Role Phone Unavailable Primary Care Provider Unavailabl e Encounter Details Date Type Department Care Team (Late st Contact Info) Description 06/26/2019 Transcribed Document [facility] [place] [facility] [place] [address] ProviderMariela MD [address] [place], [place] [id number] Social History Tobacco Use Types Packs/Day Years [...] Historical ProviderMD - 06/26/2019 2:00 AM CDT Radar Repairer Details Entered On: 06/26/2019 3:07 EDT Performed [...] 06/26/2019 3:07 EDT Electronically signed by Chantal [facility] Conversion Steel Molder Cerner at 06/16/2022 8:24 PM CDT documented in this encounter Plan of Treatment Not on file documented as of this encounter Visit Diagnoses Not on filedocumented in this encounter
--- OUTSIDE RECORDS SUMMARY | 2024-11-29 09:46 | XMS_ITS | Encounter Summary ---
Author Organization [employer] ([place], [place], [place], [place]) Address [address] [place] [address] Care Team Providers Care Carpet Repairer Name Role Phone Unavailable Primary Care Provider Unavailabl e Encounter Details Date Type Department Care Team (Late st Contact Info) Description 07/12/2019 Transcribed Document [facility] [place] Family Medicine [address] [place] [address] ProviderMariela MD [address] [place] [address] Social History Tobacco Use [...]
--- OUTSIDE RECORDS SUMMARY | 2024-11-29 09:46 | XMS_ITS | Encounter Summary ---
Author Organization [employer] ([place], [place], [place], [place]) Address [address] [place] [address] Care Team Providers Care Appeals Reviewer Veteran Name Role Phone Unavailable Primary Care Provider Unavailabl e Encounter Details Date Type Department Care Team (Late st Contact Info) Description 08/25/2020 Transcribed Document [facility] [place] [facility] [place] [address] ProviderMariela MD [address] [place] [address] Social History Tobacco Use Types Packs/Day [...]
--- OUTSIDE RECORDS SUMMARY | 2024-11-29 09:46 | XMS_ITS | Encounter Summary ---
Author Organization [employer] ([place], [place], [place], [place]) Address [address] [place] [address] Care Team Providers Care High School Physical Education Teacher Name Role Phone Unavailable Primary Care Provider Unavailabl e Encounter Details Date Type Department Care Team (Late st Contact Info) Description 08/20/2020 Transcribed Document [facility] [place] [facility] [place] [address] ProviderMariela MD [place] [address] Social History Tobacco Use Types [...] Son Legal Guardian : No Support Person/Patient Marine Engineering Technicians : Yes Support Person/Pt Rep Name : Sam Lowe Contact Password : Kiely Support Person/Pt Rep Contact Information : son (Sam) [phone] (Nancy Rust [phone] Want Family/Rep/Phys Notified of Admit : No Emergency Contact #1 : Sam Lowe Emergency Contact #1 Emergency Contact #1 Relationship : son Emergency Contact #2 : enrique lowe Emergency Contact #2 Phone Number : [phone] Emergency Contact #2 Relationship : son Information Obtained From : Patient Primary Language : Albanian Preferred Communication Mode : Verbal Communication Barrier : None Softball Umpire Needed : No Currently Lactating : No [...] Level : 46 or > High Risk [place] Fall Interventions : Adequate lighting, Assistive devices [...] Source : Stated Height Entry Format : Mode Height, Feet : 5 ft(Converted to: 152 cm, 60 Inch) Height, Inches : 0 Inch(Converted to: 0 ft 0 Inch, 0.00 cm) Clinical Height : 152.4 cm Weight Source : Standing scale Weight Entry Format : Mode Clinical Dosing Weight : 90.91 kg Weight, Pounds : 200 lb Body Surface Area (BSA) : 1.87 m2 Body Mass Index : 39.1 kg/m2 ([place]) [place] Body Weight : 45 kg Hannah Cardoso RN - 08/20/2020 21:31 EDT Infectious Disease History Has the patient ever been tested for COVID-19? : Yes, Patient stated results Negative Where was the COVID-19 Testing completed? : [facility] Where are the [...] Hannah Cardoso RN - 08/20/2020 21:31 EDT [place] Suicide Severity Rating Scale (C-SSRS) CSSRS Past [...] Hannah Cardoso RN - 08/20/2020 21:31 EDT Electronically signed by Maureen Cornejo Conversion Solar Fabrication Technician Cerner at 06/16/2022 8:26 PM CDT documented in this encounter Plan of Treatment Not on file documented as of this encounter Visit Diagnoses Not on filedocumented in this encounter
--- OUTSIDE RECORDS SUMMARY | 2024-11-29 09:46 | XMS_ITS | Encounter Summary ---
Author Organization [employer] ([place], [place], [place], [place]) Address [address] [place] [address] Care Team Providers Care Manager Training Name Role Phone Unavailable Primary Care Provider Unavailabl e Encounter Details Date Type Department Care Team (Late st Contact Info) Description 07/11/2019 Transcribed Document [facility] [place] [facility] [place] [address] ProviderMariela MD [facility] [place] [address] Social History Tobacco Use [...]
--- OUTSIDE RECORDS SUMMARY | 2024-11-29 09:46 | XMS_ITS | Encounter Summary ---
Author Organization [employer] ([place], [place], [place], [place]) Address [address] [place] [address] Care Team Providers Care Molecular Biology Professor Name Role Phone Unavailable Primary Care Provider Unavailabl e Encounter Details Date Type Department Care Team (Late st Contact Info) Description 06/26/2019 Transcribed Document [facility] [place] [facility] [place] [address] ProviderMariela MD [address] [place] [address] Social History Tobacco Use Types Packs/Day Years [...] On: 06/26/2019 13:03 EDT by Anika Clark charter boat operator Documentation Patient Disposition, General : Discharge Discharge To : Rehabilitation unit/facility Mode Of Departure, General Discharge : Ambulance/ALS IV Discontinued : No Personal Belongings With Patient : Yes Discharge Instructions Reviewed With, Opportunity For Questions Given : Patient Patient Education Completed : Yes Teaching Method : Explanation, Printed materials Teaching Evaluation : Verbalizes understanding Anika Clark RN - 06/26/2019 13:03 EDT documented in this encounter Plan of Treatment Not on file documented as of this encounter Visit Diagnoses Not on filedocumented in this encounter
--- OUTSIDE RECORDS SUMMARY | 2024-11-29 09:46 | XMS_ITS | Encounter Summary ---
Author Organization [employer] ([place], [place], [place], [place]) Address [address] [place] [address] Care Team Providers Care Computer Operations Analyst Name Role Phone Unavailable Primary Care Provider Unavailabl e Encounter Details Date Type Department Care Team (Late st Contact Info) Description 06/26/2019 Transcribed Document [facility] [place] Family Medicine On [place] [address] ProviderMariela MD [address] [place] [phone] Social History Tobacco Use Types Packs/Day Years [...] Mariela ProviderMD - 06/26/2019 5:45 PM CDT [facility] Inpatient Documentation Entered On: 06/26/2019 17:49 EDT Performed On: 06/26/2019 17:45 EDT by George Dial RN [facility] Admission Date : Admit Date 06/16/2019 21:08 [...]
--- OUTSIDE RECORDS SUMMARY | 2024-11-29 09:46 | XMS_ITS | Encounter Summary ---
Author Organization [employer] ([place], [place], [place], [place]) Address [address] [place] [address] Care Team Providers Care Solid Die Cutter Name Role Phone Unavailable Primary Care Provider Unavailabl e Encounter Details Date Type Department Care Team (Late st Contact Info) Description 06/26/2019 Transcribed Document [facility] [place] [facility] [place] [address] ProviderMariela MD [address] [place] [address] Social History Tobacco Use Types Packs/Day [...] Gates MD - 06/26/2019 1:04 [place] [address] SOFIA GILL :1940 Visit Time:06/16/2019 Your Visit [...] (fluticasone 50 mcg/ inh nasal spray) 2 [place](s) Nostrils Both Two Times A Day as [...] or 4 frozen water bottles in the [facility]. ??? Contact a health care provider [...] Barley. Bulgur wheat. Millet. Bran muffins. Popcorn. [place] wafer crackers. ??? Vegetables Sweet potatoes. Spinach. Kale. Artichokes. Cabbage. Broccoli. Green peas. Carrots. Squash. ??? Fruits Berries. Pears. Apples. Oranges. Avocados. Prunes and raisins. Dried figs. ??? Meats and Other Protein Sources [place], kidney, call, and soy beans. Split peas. [...] gray has 11 g of protein. ??? [place] seeds ??? 1 oz has 5.5 g [...] floor. ??? Place frequently used items in phsf-iv-hptmw places ??? Keep electrical cables out of [...] ? Using the bathroom. ? Using household health safety and environment manager or toxic chemicals. ? Touching or [...] To Walk With a Standard Walker: 1. braille duplicating machine operator your walker. Do not slide your standard [...] 02/15/2006 Document Revised: 07/15/2016 Document Reviewed: 08/30/2015 [employer] Interactive Patient Education ?? 2019 [employer]. Emergency Awareness and Preventative Care STROKE is [...] Assistance with quitting is available by contacting 4-307-GMPX-NOW. This is a free resource providing counseling, [...] range between ( 1.0 and 7.0 ) Brown #: 0.86 K/uL -- Normal range between ( 0.24 and 0.82 ) Eos #: 0.25 K/uL -- Normal range between ( 0.04 and 0.54 ) Brown %: 8.7 % -- Normal range between [...] ANC #: 16 K/uL Toxic Granulation: 1+ Brown Percent Man: 6 % -- Normal range between ( 4 and 5 ) Neutrophil Percent Man: 77 % -- Normal range between ( 50 and 65 ) Platelet Ct Estimate: Increased Lymph Percent Man: 16 % -- Normal range between ( 24 and 44 ) 06/22/2019 2:40 AM Barney Percent Man: 3 % -- Normal range [...] ) Urine Bilirubin Dipstick: Small Urine Specific [place]: 1.033 -- Normal range between ( 1.005 [...] Red Appearance BF: Bloody Auto RBC BF: 414276 /uL -- Normal range between ( 0 and 11910 ) Auto WBC/Nucleated Cells BF: 39970 /uL -- Normal range between ( 0 [...] was given the opportunity to ask questions. Patient/Food Service Tray Attendant Name: Patient/Food Service Tray Attendant Signature: Relationship to Patient: Clinician/Hospital Food Service Tray Attendant Signature: Date: documented in this encounter Plan of Treatment Not on file documented as of this encounter Visit Diagnoses Not on filedocumented in this encounter
--- OUTSIDE RECORDS SUMMARY | 2024-11-29 09:46 | XMS_ITS | Encounter Summary ---
Author Organization [employer] ([place], [place], [place], [place]) Address [address] [place] [address] Care Team Providers Care Jewelry Making Instructor Name Role Phone Unavailable Primary Care Provider Unavailabl e Encounter Details Date Type Department Care Team (Late st Contact Info) Description 08/22/2018 Transcribed Document [facility] [place] [facility] [address] ProviderMariela MD [address] [place] [address] Social History Tobacco Use Types Packs/Day Years [...]
--- OUTSIDE RECORDS SUMMARY | 2024-11-29 09:46 | XMS_ITS | Encounter Summary ---
Author Organization [employer] ([place], [place], [place], [place]) Address [address] [place] [address] Care Team Providers Care Supervisor Plastic Sheets Name Role Phone Unavailable Primary Care Provider Unavailabl e Encounter Details Date Type Department Care Team (Late st Contact Info) Description 08/22/2018 Transcribed Document [facility] [place] [facility] [place] [address] ProviderMariela MD [address] [place] [address] Social History Tobacco Use Types Packs/Day [...] form. Electronically signed by Nikunj Cornejoh Conversion Correspondence School Instructor Cerner at 06/16/2022 8:30 PM CDT documented in this encounter Plan of Treatment Not on file documented as of this encounter Visit Diagnoses Not on filedocumented in this encounter
--- OUTSIDE RECORDS SUMMARY | 2024-11-29 09:46 | XMS_ITS | Encounter Summary ---
Author Organization [employer] ([place], [place], [place], [place]) Address [address] [place] [address] Care Team Providers Care Vibration Analyst Name Role Phone Unavailable Primary Care Provider Unavailabl e Encounter Details Date Type Department Care Team (Late st Contact Info) Description 06/26/2019 Transcribed Document [facility] [place] [facility] [place] [address] ProviderMariela MD [facility] [place] [phone] Social History Tobacco Use Types Packs/Day Years [...] Discharged from hospital Discharged to, Therapy : skilled nursing acute care hospital (ltach) Discharge Summary Comment, PT : 0/3 acute PT goals met - did not progress as expected. Mod A x 2 supine to sit Mod A x 2 sit to stand Able to take a few steps with RWx bed to chair with Mod A x 2 Brace on L LE D/C to LTACH at [facility] for continued care and rehab on 06/26/19. TOR MEJIA, PT - 06/29/2019 6:39 EDT Jail Goals Other PT LTG Grid Goal #1 [...]
--- OUTSIDE RECORDS SUMMARY | 2024-11-29 09:46 | XMS_ITS | Encounter Summary ---
Author Organization [employer] ([place], [place], [place], [place]) Address [address] [place] [address] Care Team Providers Care Risk Management Intern Name Role Phone Unavailable Primary Care Provider Unavailabl e Encounter Details Date Type Department Care Team (Late st Contact Info) Description 06/26/2019 Transcribed Document [facility] [place] [facility] [place] [address] ProviderMariela MD [address] [place] [phone] Social History Tobacco Use Types Packs/Day Years [...] took over the care. Dr. Garcia, from [facility] and the on-call orthopedist Did [...] 0.9% 50 mL 2 Gram, IV Piggyback, [id number] cyanocobalamin 1,000 mcg tab 5,000 mcg 5 [...] At Bedtime fluticasone 0.05% nasal spray 2 [place], Nostrils Both, BID LORazepam 2 mg/mL inj [...] Topical, Q1H phenol 1.4% throat spray 1 [place], Oral, Q2H potassium chloride 10 mEq 100 [...] % 24.4 % Lymph # 2.42 K/uL [place] % 8.7 % [place] # 0.86 K/uL [place] Eos % 2.5 [...] Discharge: Start: 06/26/19 11:21:00 EDT, Discharge to: [facility]. Diagnosis Chronic venous insufficiency - [...] Refill(s) fluticasone 50 mcg/inh nasal spray: 2 [place], Nostrils Both, [place], BID, PRN Allergies, 0 Refill(s) gabapentin 300 [...]
--- OUTSIDE RECORDS SUMMARY | 2024-11-29 09:46 | XMS_ITS | Encounter Summary ---
Author Organization [employer] ([place], [place], [place], [place]) Address [address] [place] [address] Care Team Providers Care Control Technician Name Role Phone Unavailable Primary Care Provider Unavailabl e Encounter Details Date Type Department Care Team (Late st Contact Info) Description 07/12/2019 Transcribed Document [facility] [place] [facility] [place] [address] ProviderMariela MD [address] [place] [address] Social History Tobacco Use Types [...] - faxed clinical review the [facility] at [phone] to request approval for extended ltac services. Auth#[id number], awaiting approval. Care Management Note Report : [...] health and she has been to the [facility] in the past. She has the following equipment at home: wheel chair, walker, cane and shower chair. Her discharge plan is to go to rehab prior to returning home. PCP: Flavia MARQUEZ [address] [place] [phone] Developmental Training Counselor: Dr. Shemar Barger [phone] Clemente Del Rio MD - Rheumatology - [address] [place] [address] Preferences: Home Health: [facility]: no preferences DME: [facility] - [address], [place] [phone] Long-Term: [facility] facility: no preferences Will continue to monitor patient for anticipated discharge needs YOANNA ARAUJO RN - 06/29/19 08:30:20 Yoanna Araujo 06/29/2019 0830 received fax from [facility] with approval for extended ltac coverage with next clinical review due on 07/12/2019. Auth#[id number]. Will continue to follow for anticipated discharge needs. YOANNA ARAUJO RN - 06/28/19 08:35:06 Yoanna Araujo 06/28/2019 0830 Faxed clinical review to [facility] at to request approval for extended Ltac services. Auth#[id number]. Pending Approval. Documentation Status Complete : Yes YOANNA ARAUJO RN - 07/12/2019 8:38 EDT documented in this encounter Plan of Treatment Not on file documented as of this encounter Visit Diagnoses Not on filedocumented in this encounter
--- OUTSIDE RECORDS SUMMARY | 2024-11-29 09:46 | XMS_ITS | Encounter Summary ---
Author Organization [employer] ([place], [place], [place], [place]) Address [address] [place] [address] Care Team Providers Care Clerk Operator Name Role Phone Unavailable Primary Care Provider Unavailabl e Encounter Details Date Type Department Care Team (Late st Contact Info) Description 07/12/2019 Transcribed Document [facility] [place] Family Medicine [address] [place] [address] ProviderMariela MD [address] [place], [place] [phone] Social History Tobacco Use Types Packs/Day Years [...] 07/12/2019 4:38 EDT Electronically signed by Chantal [facility] Conversion Firer Helper Min at 06/16/2022 8:02 PM CDT documented in this encounter Plan of Treatment Not on file documented as of this encounter Visit Diagnoses Not on filedocumented in this encounter
--- OUTSIDE RECORDS SUMMARY | 2024-11-29 09:46 | XMS_ITS | Encounter Summary ---
Author Organization [employer] ([place], [place], [place], [place]) Address [address] [place] [address] Care Team Providers Care Photographers' Model Name Role Phone Unavailable Primary Care Provider Unavailabl e Encounter Details Date Type Department Care Team (Late st Contact Info) Description 08/25/2020 Transcribed Document [facility] [place] [facility] [place] [address] ProviderMariela MD [address] [place] [address] Social History Tobacco Use Types Packs/Day [...] EDT Chloraseptic Menthol 1.4% topical spray: 5 [place], Oral, [place], Q2H, PRN for Sore Throat, Routine, Start [...] EDT fluticasone 50 mcg/inh nasal spray: 2 [place], Nostrils Both, [place], BID, PRN for Allergies, Routine, Start 08/20/20 [...] Refill(s) fluticasone 50 mcg/inh nasal spray: 2 [place], Nostrils Both, [place], BID, PRN Allergies, 0 Refill(s) furosemide 40 [...] Oral, Daily fluticasone 0.05% nasal spray 2 [place], Nostrils Both, BID magnesium hydroxide 8% liq [...] Oral, Q4H phenol 1.4% throat spray 5 [place], Oral, Q2H senna 8.6 mg tab 8.6 mg 1 Tab, Oral, At Bedtime traZODone 50 mg tab 50 mg 1 Tab, Oral, At Bedtime Problem list: Medical Cardiac arrhythmia / SNOMED CT 3037276356 / Confirmed Cataract / SNOMED CT 7150918461 / Confirmed Chronic venous insufficiency / SNOMED CT 64020059 / Confirmed Constipation / SNOMED CT 877961404 / Confirmed Edema - BLE / SNOMED CT 447423426 / Confirmed History of obstructive sleep apnea / IMO [id number] / Confirmed HTN (hypertension) / SNOMED CT 5164882934 / Confirmed Hx: GERD (gastroesophageal reflux disease) / SNOMED CT 1584119066 / Confirmed Hypercholesteremia / SNOMED CT 67070578 / Confirmed Hypothyroid / SNOMED CT 851052825 / Confirmed Kidney cysts right / SNOMED CT 1907023075 / Confirmed Knee pain, bilateral / SNOMED CT 929458813 / Confirmed Lung abnormality right / SNOMED CT 1039132992 / Confirmed Murmur, cardiac / SNOMED CT 5074844860 / Confirmed Osteoarthritis / SNOMED CT 6164497417 / Confirmed Osteoporosis / SNOMED CT 064638429 / Confirmed Pain management / SNOMED CT 450786565 / Confirmed Redness bilateral lower legs / SNOMED CT 9248592390 / Confirmed Seasonal allergies / SNOMED CT 311406678 / Confirmed Shoulder pain, bilateral / SNOMED CT 8630578894 / Confirmed Sleep apnea / SNOMED CT 054248443 / Confirmed, Active Problems (21) Cardiac arrhythmia [...] % 24.3 % Lymph # 2.40 K/uL [place] % 11.0 % [place] # 1.09 K/uL HI Eos % 4.0 [...]
--- OUTSIDE RECORDS SUMMARY | 2024-11-29 09:46 | XMS_ITS | Encounter Summary ---
Author Organization [employer] ([place], [place], [place], [place]) Address [address] [place] [address] Care Team Providers Care Pattern Layout Worker Name Role Phone Unavailable Primary Care Provider Unavailabl e Encounter Details Date Type Department Care Team (Late st Contact Info) Description 07/11/2019 Transcribed Document [facility] [place] [address] ProviderMariela MD [address] [place] [phone] Social History Tobacco Use Types Packs/Day Years [...] 0.9% 50 mL 2 Gram, IV Piggyback, [id number] cyanocobalamin 1,000 mcg tab 5,000 mcg 5 [...] Oral, Q4H fluticasone 0.05% nasal spray 2 [place], Nostrils Both, BID magnesium hydroxide 8% liq [...] % 22.4 % Lymph # 1.61 x10(3)/uL [place] % 12.7 % HI [place] # 0.91 K/uL Eos % 6.3 % [...]
--- OUTSIDE RECORDS SUMMARY | 2024-11-29 09:46 | XMS_ITS | Encounter Summary ---
Author Organization [email or web address] ([place], [place], [place], [place]) Address [address] [place] [address] Care Team Providers Care Wire Dropper Name Role Phone Unavailable Primary Care Provider Unavailabl e Encounter Details Date Type Department Care Team (Late st Contact Info) Description 08/20/2020 Transcribed Document [facility] [place] [facility] [place] [address] ProviderMariela MD [address] [place], [place] [phone] Social History Tobacco Use Types Packs/Day Years [...]
--- OUTSIDE RECORDS SUMMARY | 2024-11-29 09:46 | XMS_ITS | Encounter Summary ---
Author Organization [employer] ([place], [place], [place], [place]) Address [address] [place] [address] Care Team Providers Care Oil Field Worker Name Role Phone Unavailable Primary Care Provider Unavailabl e Encounter Details Date Type Department Care Team (Late st Contact Info) Description 06/26/2019 Transcribed Document [facility] [place] [facility] [place] [address] ProviderMariela MD [address] [place] [address] Social History Tobacco Use Types Packs/Day Years [...] Bibi Gallagher RN - 06/27/2019 3:55 EDT documented in this encounter Plan of Treatment Not on file documented as of this encounter Visit Diagnoses Not on filedocumented in this encounter
--- OUTSIDE RECORDS SUMMARY | 2024-11-29 09:46 | XMS_ITS | Encounter Summary ---
Author Organization [employer] ([place], [place], [place], [place]) Address [address] [place] [address] Care Team Providers Care Survey Research Manager Name Role Phone Unavailable Primary Care Provider Unavailabl e Encounter Details Date Type Department Care Team (Late st Contact Info) Description 08/20/2020 Transcribed Document [facility] [place] [facility] [place] [address] ProviderMariela MD [address] [place] [address] Social History Tobacco Use Types Packs/Day [...] ANESTHESIA: Femoral nerve block, IPACK block, general. TOOL PUSHER: Brady. ESTIMATED BLOOD LOSS: Minimal. TOURNIQUET TIME: [...] the cast comes off at 3 months. /[id number] Riaz Saenz MD CC/AQ / CC / MODL /[id number] documented in this encounter Plan of Treatment Not on file documented as of this encounter Visit Diagnoses Not on filedocumented in this encounter
--- OUTSIDE RECORDS SUMMARY | 2024-11-29 09:46 | XMS_ITS | Encounter Summary ---
Author Organization [employer] ([place], [place], [place], [place]) Address [address] [place] [address] Care Team Providers Care Dumper Operator Name Role Phone Unavailable Primary Care Provider Unavailabl e Encounter Details Date Type Department Care Team (Late st Contact Info) Description 08/24/2020 Transcribed Document [facility] [place] [address] [place] [address] ProviderMariela MD [address] [place] [address] Social History Tobacco Use Types [...] Didi Villegas, RN - 08/24/2020 16:21 EDT documented in this encounter Plan of Treatment Not on file documented as of this encounter Visit Diagnoses Not on filedocumented in this encounter
--- OUTSIDE RECORDS SUMMARY | 2024-11-29 09:46 | XMS_ITS | Encounter Summary ---
Author Organization [employer] ([place], [place], [place], [place]) Address [address] [place] [address] Care Team Providers Care Staffing Account Manager Name Role Phone Unavailable Primary Care Provider Unavailabl e Encounter Details Date Type Department Care Team (Late st Contact Info) Description 06/27/2019 Transcribed Document [facility] [place] Family Medicine [address] [place] [address] ProviderMariela MD [address] [place], [place] [phone] Social History Tobacco Use Types Packs/Day Years [...]
--- OUTSIDE RECORDS SUMMARY | 2024-11-29 09:46 | XMS_ITS | Encounter Summary ---
Author Organization [employer] ([place], [place], [place], [place]) Address [address] [place] [address] Care Team Providers Care Glost Kiln Placer Name Role Phone Unavailable Primary Care Provider Unavailabl e Encounter Details Date Type Department Care Team (Late st Contact Info) Description 08/25/2020 Transcribed Document [facility] [place] [facility] [place] [address] ProviderMariela MD [facility] [place] [address] Social History Tobacco Use Types [...]
--- OUTSIDE RECORDS SUMMARY | 2024-11-29 09:46 | XMS_ITS | Encounter Summary ---
Author Organization [employer] ([place], [place], [place], [place]) Address [address] [place] [address] Care Team Providers Care Mechanic Welder Name Role Phone Unavailable Primary Care Provider Unavailabl e Encounter Details Date Type Department Care Team (Late st Contact Info) Description 08/24/[address] [facility] [place] [facility] [place] [address] ProviderMariela MD [address] [place] [address] Social History Tobacco Use Types Packs/Day [...] form. Electronically signed by Chantal, Maureen Conversion Vp [employer] Cerner at 06/16/2022 8:23 PM CDT documented in this encounter Plan of Treatment Not on file documented as of this encounter Visit Diagnoses Not on filedocumented in this encounter
--- OUTSIDE RECORDS SUMMARY | 2024-11-29 09:46 | XMS_ITS | Encounter Summary ---
Author Organization [employer] ([place], [place], [place], [place]) Address [address] [place] [address] Care Team Providers Care Director Of Vocational Training Name Role Phone Unavailable Primary Care Provider Unavailabl e Encounter Details Date Type Department Care Team (Late st Contact Info) Description 08/20/2020 Transcribed Document [facility] [place] [facility] [place] [address] ProviderMariela MD [facility] [place] [address] Social History Tobacco Use [...]
--- OUTSIDE RECORDS SUMMARY | 2024-11-29 09:46 | XMS_ITS | Encounter Summary ---
Author Organization [employer] ([place], [place], [place], [place]) Address [address] [place] [address] Care Team Providers Care Italian Lecturer Name Role Phone Unavailable Primary Care Provider Unavailabl e Encounter Details Date Type Department Care Team (Late st Contact Info) Description 07/10/2019 Transcribed Document [facility] [place] [address] ProviderMariela MD [address] [place] [address] Social History Tobacco Use Types Packs/Day Years [...]
--- OUTSIDE RECORDS SUMMARY | 2024-11-29 09:46 | XMS_ITS | Encounter Summary ---
Author Organization [employer] ([place], [place], [place], [place]) Address [address] [place] [address] Care Team Providers Care Newspaper Peddler Name Role Phone Unavailable Primary Care Provider Unavailabl e Encounter Details Date Type Department Care Team (Late st Contact Info) Description 08/22/2018 Transcribed Document [facility] [place] [facility] [place] [address] ProviderMariela MD [facility] [place] [address] Social History Tobacco Use Types [...] 12:14 PT Treatment Instructions Ordered By: EPPS, SHINTO, MD-ORT Active Diagnoses : No Qualifying Diagnoses [...] ALLEN Physical Therapist - 08/22/2018 13:16 EDT Banquet Prep Cook Goals Other PT LTG Grid Goal #1 Goal #2 Goal #3 Other : Patient will ambulate at least 50 feet with RWx and no more than Alexandra without LOB or safety concerns to allow safe household or facility ambulation upon [facility] care [place]. Patient will participate with therex [...] the text rendition version of the form. Cucumber PT Charges Gait Training Each 15 Min : 1 PT Eval Low Complexity : 1 DELMY ALLEN Physical Therapist - 08/22/2018 13:16 EDT documented in this encounter Plan of Treatment Not on file documented as of this encounter Visit Diagnoses Not on filedocumented in this encounter
--- OUTSIDE RECORDS SUMMARY | 2024-11-29 09:46 | XMS_ITS | Encounter Summary ---
Author Organization [employer] ([place], [place], [place], [place]) Address [address] [place] [address] Care Team Providers Care Marketing Programs Manager Name Role Phone Unavailable Primary Care Provider Unavailabl e Encounter Details Date Type Department Care Team (Late st Contact Info) Description 06/27/2019 Transcribed Document [facility] [place] [facility] [place] [address] ProviderMariela MD [address] [place] [address] Social History Tobacco Use Types Packs/Day [...] Patient with no fevers and moved to [facility] for rehab on ongoing iv [...] 26) ALB L 2.4 (JUN 26) Micro: [facility]: 06/15 [facility] Blood cultures positive for group B strep [...] down and no fevers continue custodial abx - crp down - needs rehab and iv abx at [facility] will follow documented in this encounter Plan of Treatment Not on file documented as of this encounter Visit Diagnoses Not on filedocumented in this encounter
--- OUTSIDE RECORDS SUMMARY | 2024-11-29 09:46 | XMS_ITS | Encounter Summary ---
Author Organization [employer] ([place], [place], [place], [place]) Address [address] [address] Care Team Providers Care Housing Property Manager Name Role Phone Unavailable Primary Care Provider Unavailabl e Encounter Details Date Type Department Care Team (Late st Contact Info) Description 08/20/2020 Transcribed Document [facility] [place] [facility] [place] [address] ProviderMariela MD [address] [place] [address] Social History Tobacco Use Types [...] or 4 frozen water bottles in the [facility]. ?? Continue to use Incentive [...] Barley. Bulgur wheat. Millet. Bran muffins. Popcorn. Mark wafer crackers. ?? Vegetables Sweet potatoes. Spinach. Kale. Artichokes. Cabbage. Broccoli. Green peas. Carrots. Squash. ?? Fruits Berries. Pears. Apples. Oranges. Avocados. Prunes and raisins. Dried figs. ?? Meats and Other Protein Sources [place], kidney, call, and soy beans. Split peas. [...] gray has 11 g of protein. ?? [place] seeds - 1 oz has 5.5 g [...] floor. ?? Place frequently used items in [id number]-[id number] places ?? Keep electrical cables out of [...] ? Using the bathroom. ? Using household hog tender or toxic chemicals. ? Touching or taking [...]
--- OUTSIDE RECORDS SUMMARY | 2024-11-29 09:46 | XMS_ITS | Clinical Summary ---
[facility] Organization [facility] Address [address] [place] [address] Care Team Providers Care Auto Job Estimator Name Role Phone Musa Pollock MD Primary Care Provider [phone] Allergies Active Allergy Reactions Criticality Noted Date [...] 1-dose 75+ series) 8 ANNUAL PHYSICAL 11/29/2017 INFLUENZA VACCINE 09/29/2024 COVID-19 Vaccine ( - season) 2024 Insurance [employer] MEDIC[employer] REPLACE Care Teams Auto Job Estimator Relationship Specialty Start Date End Date Musa Pollock MD PCP - General 10/31/14
--- OUTSIDE RECORDS SUMMARY | 2024-11-29 09:46 | XMS_ITS | Encounter Summary ---
Author Organization [employer] ([place], [place], [place], [place]) Address [address] [place] [address] Care Team Providers Care Records Clerk Name Role Phone Unavailable Primary Care Provider Unavailabl e Encounter Details Date Type Department Care Team (Late st Contact Info) Description 08/20/2020 Transcribed Document [facility] [place] [facility] [place] [address] ProviderMariela MD [address] [place] [address] Social History Tobacco Use Types Packs/Day [...] Source : Stated Height Entry Format : [place] Height, Feet : 5 ft(Converted to: 152 cm, 60 Inch) Height, Inches : 0 Inch(Converted to: 0 ft 0 Inch, 0.00 cm) Clinical Height : 152.4 cm Weight Source : Standing scale Weight Entry Format : [place] Clinical Dosing Weight : 90.91 kg Weight, Pounds : 200 lb Body Surface Area (BSA) : 1.87 m2 Body Mass Index : 39.1 kg/m2 (HI) [place] Body Weight : 45 kg THIERRY GOODRICH [...] Where was the COVID-19 Testing completed? : [facility] Where are the test [...] THIERRY GOODRICH RN - 08/20/2020 15:27 EDT [place] Suicide Severity Rating Scale (C-SSRS) CSSRS Past [...] Son Legal Guardian : No Support Person/Patient Commercial Painter : Yes Support Person/Pt Rep Name : Sam Barlow Contact Password : Keily Support Person/Pt Rep Contact Information : son (Sam) [phone] (Nancy Rust [phone] Want Family/Rep/Phys Notified of Admit : No Emergency Contact #1 : Sam Barlow Emergency Contact #1 Emergency Contact #1 Relationship : son Emergency Contact #2 : - Emergency Contact #2 Phone Number : - Emergency Contact #2 Relationship : - Information Obtained From : Patient Primary Language : Maori Preferred Communication Mode : Verbal Communication Barrier : None Helicopter Crew Chief Needed : No Currently Lactating : No [...]
--- OUTSIDE RECORDS SUMMARY | 2024-11-29 09:46 | XMS_ITS | Encounter Summary ---
Author Organization [employer] ([place], [place], [place], [place]) Address [address] [place] [address] Care Team Providers Care Associate Product Manager Name Role Phone Unavailable Primary Care Provider Unavailabl e Encounter Details Date Type Department Care Team (Late st Contact Info) Description 08/22/2018 Transcribed Document [facility] [place] [facility] [place] [address] ProviderMariela MD [address] [place], [place] [id number] Social History Tobacco Use Types Packs/Day Years [...] 08/22/2018 14:00 EDT by Charleen Ortiz Social Worker-Online Facilitator Initial Assessment I Previously Documented Living Environment [...] Guardianship Needed : No Charleen Ortiz Social Worker-Online Facilitator - 08/22/2018 14:00 EDT Initial Assessment II Sensory and Motor Deficits : Weakness Charleen Ortiz Social Worker-Online Facilitator - 08/22/2018 14:00 EDT Discharge Needs I [...] there in past. Referral was made via [employer] [place]. Contacted [facility] liaison and notified her of the referral. Continue to follow... Charleen Ortiz Social Worker-Online Facilitator - 08/22/2018 14:00 EDT documented in this encounter Plan of Treatment Not on file documented as of this encounter Visit Diagnoses Not on filedocumented in this encounter
--- OUTSIDE RECORDS SUMMARY | 2024-11-29 09:46 | XMS_ITS | Encounter Summary ---
Author Organization [employer] ([place], [place], [place], [place]) Address [address] [place] [address] Care Team Providers Care Open Hearth Stockyard Supervisor Name Role Phone Unavailable Primary Care Provider Unavailabl e Encounter Details Date Type Department Care Team (Late st Contact Info) Description 08/25/2020 Transcribed Document [facility] [place] Medicine [facility] [place] [address] ProviderMariela MD [facility] [place] [address] Social History Tobacco Use Types [...] Historical ProviderMD - 08/25/2020 2:00 AM CDT Log Cooker Details Entered On: 08/25/2020 1:31 EDT Performed [...] EDT Electronically signed by Maureen Cornejo Conversion Stoker Erector And Servicer Cerner at 06/16/2022 8:04 PM CDT documented in this encounter Plan of Treatment Not on file documented as of this encounter Visit Diagnoses Not on filedocumented in this encounter
--- OUTSIDE RECORDS SUMMARY | 2024-11-29 09:46 | XMS_ITS | Encounter Summary ---
Author Organization [employer] ([place], [place], [place], [place]) Address [address] [place] [address] Care Team Providers Care Basketball Commentator Name Role Phone Unavailable Primary Care Provider Unavailabl e Encounter Details Date Type Department Care Team (Late st Contact Info) Description 08/20/2020 Transcribed Document [facility] [place] [facility] [place] [address] ProviderMariela MD [facility] [place] [address] Social History Tobacco Use Types [...] Mariela ProviderMD - 08/20/2020 4:09 PM CDT [facility] PACU Summary Primary Physician: NIMO EPPS MD-ORT Finalized Date/Time: 08/20/20 20:56:16 Pt. Name: SOFIA GILL Eufemia Bal/Sex: 1940 Female Med Rec #: [id number] Physician: NIMO EPPS MD-ORT Financial #: [id number] Pt. Type: I Room/Bed: Admit/Disch: 08/20/20 04:48:00 - Institution: [facility] OR PACU Case Times Entry 1 In PACU I 08/20/20 20:23:00 Ready for PACU 08/20/20 20:56:00 Discharge Discharge from PACU 08/20/20 20:56:00 I Last Modified By: ROBERT Macdonald 08/20/20 20:56:09 [facility] Main OR PACU Case Times Audit 08/20/20 20:56:09 Industrial Recruiter: ESTEBANVALENTINE Modifier: LEXA <+> 1 Ready for PACU Discharge <+> 1 Discharge from PACU I Finalized By: ROBERT Macdonald Document Signatures Signed By: ROBERT Macdonald 08/20/20 20:56 Electronically signed by Chantal [facility] Conversion Patient Transport Orderly Cerner at 06/16/2022 8:23 PM CDT documented in this encounter Plan of Treatment Not on file documented as of this encounter Visit Diagnoses Not on filedocumented in this encounter
--- OUTSIDE RECORDS SUMMARY | 2024-11-29 09:46 | XMS_ITS | Encounter Summary ---
Author Organization [employer] ([place], [place], [place], [place]) Address [address] [place] [address] Care Team Providers Care Hospice Home Health Aide Name Role Phone Unavailable Primary Care Provider Unavailabl e Encounter Details Date Type Department Care Team (Late st Contact Info) Description 08/25/2020 Transcribed Document [facility] [place] [facility] [place] [address] ProviderMariela MD [facility] [address] Social History Tobacco [...] form. Electronically signed by Maureen Cornejo Conversion Software Quality Assurance Analyst Cerner at 06/16/2022 8:06 PM CDT documented in this encounter Plan of Treatment Not on file documented as of this encounter Visit Diagnoses Not on filedocumented in this encounter
--- OUTSIDE RECORDS SUMMARY | 2024-11-29 09:46 | XMS_ITS | Encounter Summary ---
Author Organization [employer] ([place], [place], [place], [place]) Address [address] [place] [address] Care Team Providers Care Licensed Physical Therapist Assistant Name Role Phone Unavailable Primary Care Provider Unavailabl e Encounter Details Date Type Department Care Team (Late st Contact Info) Description 07/12/2019 Transcribed Document [facility] [place] [address] ProviderMariela MD [address] [place] [id number] Social History Tobacco Use Types Packs/Day Years [...] 0.9% 50 mL 2 Gram, IV Piggyback, [id number] cyanocobalamin 1,000 mcg tab 5,000 mcg 5 [...] Oral, Q4H fluticasone 0.05% nasal spray 2 Mcdougal, Nostrils Both, BID magnesium hydroxide 8% liq [...]
--- OUTSIDE RECORDS SUMMARY | 2024-11-29 09:46 | XMS_ITS | Encounter Summary ---
Author Organization [employer] ([place], [place], [place], [place]) Address [address] [place] [address] Care Team Providers Care Operations Advisor Name Role Phone Unavailable Primary Care Provider Unavailabl e Encounter Details Date Type Department Care Team (Late st Contact Info) Description 08/25/2020 Transcribed Document [facility] [place] Family Medicine [address] [place] [address] ProviderMariela MD [address] [place] [address] Social History Tobacco Use Types [...] 08/25/2020 5:28 EDT Electronically signed by Chantal [place] Conversion Global Marketing Operations Manager Min at 06/16/2022 8:28 PM CDT documented in this encounter Plan of Treatment Not on file documented as of this encounter Visit Diagnoses Not on filedocumented in this encounter
--- OUTSIDE RECORDS SUMMARY | 2024-11-29 09:46 | XMS_ITS | Encounter Summary ---
Author Organization [employer] ([place], [place], [place], [place]) Address [address] [place] [address] Care Team Providers Care Advertising Operations Manager Name Role Phone Unavailable Primary Care Provider Unavailabl e Encounter Details Date Type Department Care Team (Late st Contact Info) Description 08/19/2020 Transcribed Document [facility] [place] [facility] [place] [address] ProviderMariela MD [address] [place] [address] Social History Tobacco Use Types [...] Policy Numbers : Insurance 1 Health Plan: [facility] MEDICARE ADVANTAGE Policy Number: [id number] Authorization Number: Insurance Primary Name : [facility] Policy Number: [id number] Authorization Status-Primary : Admit approved Reference Number-Primary : [id number] Authorization Number-Primary : [id number] Number of Days Authorized-Primary : 0 Day(s) Authorized Service Begin Date-Primary : 08/20/2020 EDT Authorized Service End Date-Primary : 08/20/2020 EDT Authorization Comments-Primary : [facility] Medicare approved per website for 1 day Historical Authorization Comments-Primary : No Authorization Comments Found TIESHA AQUINO RN-Utilization Review - 08/19/2020 15:14 EDT documented in this encounter Plan of Treatment Not on file documented as of this encounter Visit Diagnoses Not on filedocumented in this encounter
--- OUTSIDE RECORDS SUMMARY | 2024-11-29 09:46 | XMS_ITS | Encounter Summary ---
Author Organization [employer] ([place], [place], [place], [place]) Address [address] [place] [address] Care Team Providers Care Blanking Press Operator Name Role Phone Unavailable Primary Care Provider Unavailabl e Encounter Details Date Type Department Care Team (Late st Contact Info) Description 08/20/2020 Transcribed Document [facility] [place] [facility] [place] [address] ProviderMariela MD [address] [place] [address] Social History Tobacco Use [...] OTR/L - 08/21/2020 13:24 EDT] ) EDIN RDAKE OTR/L - 08/21/2020 13:24 EDT Functional MobilityComment : pt tolerates EOB sitting for ~4 minutes with RLE supported and requesting back to bed as she is feeling weak. min assist for seated balance at times , pt attempts to use leg clay shop supervisor to assist RLE to EOB and cues [...] EDIN DRAKE OTR/L - 08/21/2020 13:24 EDT Long-Term Goals, OT Other LTG Grid Goal #1 [...]
--- OUTSIDE RECORDS SUMMARY | 2024-11-29 09:46 | XMS_ITS | Encounter Summary ---
Author Organization [employer] ([place], [place], [place], [place]) Address [address] [place] [address] Care Team Providers Care High School Professional Name Role Phone Unavailable Primary Care Provider Unavailabl e Encounter Details Date Type Department Care Team (Late st Contact Info) Description 08/20/2020 Transcribed Document [facility] [place] [facility] [place] [address] ProviderMariela MD [address] [place] [address] Social History Tobacco Use Types Packs/Day [...] MD-INT FISHER, REGINA - 08/20/2020 21:15 EDT Electronically signed by Maureen Cornejo Conversion Flight Engineer Performance Qualified Cerbryce at 06/16/2022 8:24 PM CDT documented in this encounter Plan of Treatment Not on file documented as of this encounter Visit Diagnoses Not on filedocumented in this encounter
--- OUTSIDE RECORDS SUMMARY | 2024-11-29 09:46 | XMS_ITS | Encounter Summary ---
Author Organization [employer] ([place], [place], [place], [place]) Address [address] [place] [address] Care Team Providers Care Electrotype Caster Name Role Phone Unavailable Primary Care Provider Unavailabl e Encounter Details Date Type Department Care Team (Late st Contact Info) Description 06/27/2019 Transcribed Document [facility] [place] [facility] [place] [address] ProviderMariela MD [address] [place] [address] Social History Tobacco Use Types Packs/Day [...] MIGDALIA TOBIN PTA - 07/03/2019 12:16 EDT Milk Pickup Driver Goals Mobility/Bed Mobility LTG PT Grid Goal [...] Anticipated Discharge to : Unit, rehabilitation, Unit, residential MIGDALIA TOBIN PTA - 07/03/2019 12:16 EDT [place] PT Charges ER NURSE PT Therap. Exercise 15 min-ER NURSE : 1 Gait Training Each 15 Min-ER NURSE : 1 MIGDALIA TOBIN PTA - 07/03/2019 12:16 EDT documented in this encounter Plan of Treatment Not on file documented as of this encounter Visit Diagnoses Not on filedocumented in this encounter
--- OUTSIDE RECORDS SUMMARY | 2024-11-29 09:46 | XMS_ITS | Encounter Summary ---
Author Organization [employer] ([place], [place], [place], [place]) Address [address] [address] Care Team Providers Care Flight Operations Manager Name Role Phone Unavailable Primary Care Provider Unavailabl e Encounter Details Date Type Department Care Team (Late st Contact Info) Description 06/27/2019 Transcribed Document [facility] [place] [facility] [place] [address] ProviderMariela MD [place] [address] Social History Tobacco Use Types [...] Body Dressing Device Comment, OT : Given manager shell, states I've been through this before, I [...] way down- Min A, patient given leg block setter gypsum to assist with practice from full supine to sit. NILA RAMAN OTR/Bartolo 07/13/2019 13:50 EDT Plan of Care, OT OT Tx Plan/Goals Established w Patient : Yes NILA RAMAN OTR/Bartolo 07/13/2019 13:50 EDT Tax Compliance Agent Goals, OT Bathing LTG Grid Goal #1 [...] Status : Goal met (Comment: Given leg block setter gypsum- Min A from full supine without device. [...] A to sit to EOB (given leg block setter gypsum for future attempts). Stood for toileting hygiene and donning gown. Ambulated out into hallway. with chair follow. Once back to room had long disscussion about ADls in room. Patient is very I at chair level and declines practice at bathing, dressing with AE. Patient given LH sponge and manager shell as she states she uses these at home. Left [facility] with needs in reach and [...] NILA RAMAN OTR/Bartolo - 07/13/2019 13:50 EDT documented in this encounter Plan of Treatment Not on file documented as of this encounter Visit Diagnoses Not on filedocumented in this encounter
--- OUTSIDE RECORDS SUMMARY | 2024-11-29 09:46 | XMS_ITS | Encounter Summary ---
Author Organization [employer] ([place], [place], [place], [place]) Address [address] [place] [address] Care Team Providers Care Roll Icer Name Role Phone Unavailable Primary Care Provider Unavailabl e Encounter Details Date Type Department Care Team (Late st Contact Info) Description 07/12/2019 Transcribed Document [facility] [place] [facility] [address] ProviderMariela MD [address] [place], [place] [id number] Social History Tobacco Use Types Packs/Day Years [...] Conversion Note - Mariela ProviderMD - 07/12/2019 12:15 PM CDT Care Management Assessment/Plan Entered On: 07/12/2019 12:19 EDT Performed On: 07/12/2019 12:15 EDT by СВЕТЛАНА WANG Care Management Note Care Management Note : 07/12/2019 Fax received from [facility] with approval for LTAC services with a request for updated discharge plans and clinical info to support needs if not discharged. Auth#[id number]. Clinical review or discharge summary to be faxed by 07/17/2019. Care Management Note Report : YOANNA ARAUJO RN - 07/12/19 08:39:48 Yoanna Araujo 07/12/2019 0830 - faxed clinical review the [facility] at [phone] to request approval for extended ltac services. Auth#[id number], awaiting approval. YOANNA ARAUJO RN - 06/29/19 [...] health and she has been to [facility] in the past. She has the following equipment at home: wheel chair, walker, cane and shower chair. Her discharge plan is to go to rehab prior to returning home. PCP: Flavia MARQUEZ [address] [place] [place] [phone] Gravity Manager: Dr. Shemar Barger [address] [address] [address] Clemente Del Rio MD - Rheumatology - [address] [place] [address] Preferences: Home Health: [facility]: no preferences DME: [facility] - [address], [place] [phone] [facility] preferences Will continue to monitor patient for anticipated discharge needs YOANNA ARAUJO RN - 06/29/19 08:30:20 Yoanna Araujo 06/29/2019 0830 received fax from [facility] with approval for extended ltac coverage with next clinical review due on 07/12/2019. Auth#[id number]. Will continue to follow for anticipated discharge needs. YOANNA ARAUJO RN - 06/28/19 08:35:06 Yoanna Araujo 06/28/2019 0830 Faxed clinical review to [facility] at to request approval for extended Ltac services. Auth#[id number]. Pending Approval. Documentation Status Complete : СВЕТЛАНА Dick - 07/12/2019 12:15 EDT Electronically signed by Nikunj Cornejo Conversion Architectural Engineering Teacher Min at 06/16/2022 8:11 PM CDT documented in this encounter Plan of Treatment Not on file documented as of this encounter Visit Diagnoses Not on filedocumented in this encounter
--- OUTSIDE RECORDS SUMMARY | 2024-11-29 09:46 | XMS_ITS | Encounter Summary ---
Author Organization [facility] ([place], [place], [place], [place]) Address [address] [place] [address] Care Team Providers Care Medical Massage Therapist Name Role Phone Unavailable Primary Care Provider Unavailabl e Encounter Details Date Type Department Care Team (Late st Contact Info) Description 06/27/2019 Transcribed Document [facility] [place] [facility] [place] [address] ProviderMariela MD [address] [place] [address] Social History Tobacco Use Types [...] Dear : Alannah Date / Time: 06/27/2019 3528 Please exercise your independent, professional judgment in responding to the clarification form. Clinical indicators are provided on the bottom of this form for your review Please check appropriate box(es): [ ] Active Sepsis is present upon admission to [facility] [ x ] Patient does not have active sepsis upon admission to [facility] but is recovering from sepsis and still receiving treatment [ ] Patient does not have sepsis upon admission to [facility] ] Other diagnosis [ ] Unable to [...] infection and recurrent falls, was admitted to [facility] with a periprosthetic Left knee [...] - wbc down and no fevers continue penitentiary abx - crp down - needs rehab and iv abx at [facility] will follow Dr. Stock 06/27/2019 PN [ ] [ ] [ ] CDS/Analysis Evaluator Signature: __[email or web address] Date/Time: 06/27/2019 1454 This is a permanent part of the Medical Record Q7 2019 [facility] Updated: documented in this encounter Plan of Treatment Not on file documented as of this encounter Visit Diagnoses Not on filedocumented in this encounter
--- OUTSIDE RECORDS SUMMARY | 2024-11-29 09:46 | XMS_ITS | Encounter Summary ---
Author Organization [employer] ([place], [place], [place], [place]) Address [address] [place] [address] Care Team Providers Care Chemical Dependency Attendant Name Role Phone Unavailable Primary Care Provider Unavailabl e Encounter Details Date Type Department Care Team (Late st Contact Info) Description 08/22/2018 Transcribed Document [facility] [place] Family Medicine [facility] [place] [address] ProviderMariela MD [facility] [place] [address] Social History Tobacco Use Types [...] Mariela ProviderMD - 08/22/2018 9:14 AM CDT [facility] Main OR IntraOp Summary Primary Physician: NIMO EPPS MD-ORT Finalized Date/Time: 08/22/18 11:15:32 Pt. Name: SOFIA GILL Eufemia /Sex: 1940 Female Med Rec #: [id number] Physician: NIMO EPPS MD-ORT Financial #: [id number] Pt. Type: O Room/Bed: Admit/Disch: 08/22/18 04:51:00 - Institution: [facility] IntraOp Case Attendance Entry 1 Entry 2 Entry 3 Case Attendee NIMO EPPS STULL, KELSI A, NA Warner, Missy M Rn RENEEORT Role Performed Surgeon/Proceduralist, CLOTHING MANAGER/Nurse Air Valve Repairer Cinder Worker, First First Time In 08/22/18 09:11:00 08/22/18 [...] ESTEBAN Role Performed Scrub, First Scrub, Second Merchandise Carrier, First Time In 08/22/18 08:38:00 08/22/18 08:38:00 [...] SOLOMON MCCRACKEN PA-C Role Performed Vendor Physician bankruptcy legal assistant Time In 08/22/18 08:38:00 08/22/18 09:38:00 Time Out 08/22/18 11:06:00 08/22/18 11:06:00 Procedure Knee Total Joint Knee Total Joint Replacement Replacement Other Attendee jim morales Superficial Wound Closed By: Last Modified By: Yessi Ceron, Yessi Manrique, Laxmi 08/22/18 11:15:26 08/22/18 11:15:02 [facility] IntraOp Case Attendance Audit 08/22/18 11:15:26 Service Provider: [id number] Modifier: [id number] <+> Role Performed 7 <*> Procedure Knee Total Joint Replacement 08/22/18 11:15:02 Service Provider: [id number] Modifier: [id number] 1 <*> Procedure Knee Total Joint Replacement [...] Procedure Knee Total Joint Replacement 08/22/18 10:25:09 Service Provider: [id number] Modifier: [id number] 1 <+> Time Out 1 <*> Procedure Knee Total Joint Replacement 5 <+> Time Out 5 <*> Procedure Knee Total Joint Replacement 08/22/18 09:38:47 Service Provider: [id number] Modifier: [id number] 1 <*> Procedure Knee Total Joint Replacement 8 <*> Time In 08/22/18 08:38:00 8 <*> Procedure Knee Total Joint Replacement 08/22/18 09:33:38 Service Provider: [id number] Modifier: [id number] 1 <*> Case Attendee NIMO EPPS MD-ORT 1 <*> Role Performed Surgeon/Proceduralist, First 1 <*> Time In 08/22/18 09:11:00 1 <*> Procedure Knee Total Joint Replacement 2 <*> Case Attendee ATTILA COMER, NA 2 <*> Role Performed CLOTHING MANAGER/Nurse Air Valve Repairer 2 <*> Time In 08/22/18 08:38:00 2 <*> Procedure Knee Total Joint Replacement 3 <*> Case Attendee Yessi Ceron, Rn 3 <*> Role Performed Cinder Worker, First 3 <*> Time In 08/22/18 08:38:00 [...] OMAR JIMENEZ, CSA 6 <*> Role Performed Merchandise Carrier, First 6 <*> Time In 08/22/18 08:38:00 6 <*> Procedure Knee Total Joint Replacement Entry 7 was deleted. Higher numbered entries shifted one position to fill the gap. <-> 7 Case Attendee JEANNE CASEY PAC <-> 7 Role Performed Physician bankruptcy legal assistant <-> 7 Time In 08/22/18 08:38:00 <-> 7 Procedure Knee Total Joint Replacement <-> 7 Other Attendee 8 <*> Case Attendee OTHER, ATTENDEE #1 8 <+> Role Performed 8 <*> Time In 08/22/18 08:38:00 8 <*> Procedure Knee Total Joint Replacement 8 <-> Other Attendee jimreji morales 08/22/18 09:33:18 Service Provider: [id number] Modifier: [id number] 1 <*> Procedure Knee Total Joint Replacement [...] Procedure Knee Total Joint Replacement 08/22/18 09:32:29 Service Provider: [id number] Modifier: [id number] <+> 9 Case Attendee <+> 9 Role Performed <+> 9 Procedure 08/22/18 09:13:27 Service Provider: [id number] Modifier: [id number] <+> Time In 1 <*> Procedure [...] [facility] IntraOp Case Times Audit 08/22/18 11:05:29 Service Provider: [id number] Modifier: [id number] <+> 1 Out Room Time <+> 1 Stop Time <+> 1 Stop Time 08/22/18 09:32:54 Service Provider: [id number] Modifier: [id number] <+> 1 Start Time [facility] IntraOp Cautery [...] 09:33:06 [facility] IntraOp Communication Audit 08/22/18 09:33:06 Service Provider: [id number] Modifier: [id number] <+> 1 Date and Time S[facility] IntraOp [...] [facility] IntraOp Counts Verification Audit 08/22/18 10:17:11 Service Provider: [id number] Modifier: [id number] 2 <*> Procedure Knee Total Joint Replacement [...] [facility] IntraOp Counts Final Audit 08/22/18 10:25:21 Service Provider: [id number] Modifier: [id number] 1 <*> Procedure Knee Total Joint Replacement [...] by Yessi Ceron, Laxmi Last Modified By: eYssi Ceron Rn 08/22/18 07:13:43 [facility] IntraOp Drains [...] IntraOp Dressing and Packing Audit 08/22/18 09:32:44 Service Provider: [id number] Modifier: [id number] 1 <*> Applied By JEANNE CASEY PAC [...] IntraOp Fire Risk Assessment Audit 08/22/18 09:11:50 Service Provider: [id number] Modifier: [id number] <+> 1 Fire Risk Assessment Verified Date/Time [facility] IntraOp General Case Cold Rolling Machine Setter 1 Case Information OR OR 02 [facility] Case Level 1 Room Verified Yes Wound Class I - Clean Specialty SN Orthopedic Anesthesia Type General ASA Class 3 Diagnosis Preop Diagnosis SEVERE DJD Postop Same As Preop Yes Postop Diagnosis SEVERE DJD Last Modified By: Yessi Ceron Rn 08/22/18 09:12:03 E IntraOp General Case Data Audit 08/22/18 09:12:03 Service Provider: [id number] Modifier: [id number] <+> 1 Room Verified 08/22/18 09:11:58 Service Provider: [id number] Modifier: [id number] <+> 1 ASA Class [facility] IntraOp Implant Log Entry 1 Entry 2 Entry 3 Type Implant (Synthetic) Implant (Synthetic) Implant (Synthetic) Implant Log Implant Type Bone Cement Hardware Hardware Tissue Implant Type Implant CEMENT BONE COBALT HV COMP FEM CR INTLOK VGRD TY TIB I-BEAM FIX Identification [id number] [id number] Description Implant Quantity 2 1 1 Implant Site RIGHT KNEE RIGHT KNEE RIGHT KNEE Implant Identification Model Number Implant Identification Serial Number Implant [id number] Identification Lot Number Implant Dj Surg:[employer] Bi[employer] Biomet Identification Med:Bobbi Public Relations Consultant Name: Implant [id number] Identification Catalog Number Implant Size Implant Has an Yes Yes Yes Expiration Date Implant Expiration 08/25/19 06/27/28 05/23/28 Date Wasted Radioactive Material Time Implanted Tissue Implant Continue for Tissue Implant Documentation Tissue Identification Number Graft Prep Per Public Relations Consultant Instructions: Tissue Preparation Method: Reconstitution Solution: Reconstitution Solution Lot Number Reconstitution Solution Expiration Date: Thawing Solution Thawing Solution Lot Number Thawing Solution Expiration Date Preparation Materials, Other Preparation Materials, Other Lot Number Preparation Materials, Other Expiration Date Tissue Prepared/Processed By Public Relations Consultant Paperwork Completed Implant Type Comment Last Modified By: Yessi Ceron Rn Warner, Missy M, Rn Warner, Missy M, Rn 08/22/18 10:16:57 08/22/18 10:16:57 08/22/18 10:16:57 Entry 4 Entry 5 Type Implant (Synthetic) Implant (Synthetic) Implant Log Implant Type Hardware Hardware Tissue Implant Type Implant PATELLA THIN BEAR VAN TIB DCM Identification [id number] Description Implant Quantity 1 1 Implant Site RIGHT KNEE RIGHT KNEE Implant Identification Model Number Implant Identification Serial Number Implant [id number] Identification Lot Number Implant Biomet Biomet Identification Public Relations Consultant Name: Implant [id number] Identification Catalog Number Implant Size Implant Has an Yes Yes Expiration Date Implant Expiration 07/24/23 06/12/23 Date Wasted Radioactive Material Time Implanted Tissue Implant Continue for Tissue Implant Documentation Tissue Identification Number Graft Prep Per Public Relations Consultant Instructions: Tissue Preparation Method: Reconstitution Solution: Reconstitution Solution Lot Number Reconstitution Solution Expiration Date: Thawing Solution Thawing Solution Lot Number Thawing Solution Expiration Date Preparation Materials, Other Preparation Materials, Other Lot Number Preparation Materials, Other Expiration Date Tissue Prepared/Processed By Public Relations Consultant Paperwork Completed Implant Type Comment Last Modified By: Yessi Ceron Rn Warner, Missy M, Rn 08/22/18 10:16:57 08/22/18 10:16:57 [facility] IntraOp Implant Log Audit 08/22/18 10:16:57 Service Provider: [id number] Modifier: [id number] <+> 1 Implant Identification Description <+> 1 Implant Identification Lot Number <+> 1 Implant Identification Public Relations Consultant Name: <+> 1 Implant Expiration Date <+> 1 Implant Identification Catalog Number <+> 2 Implant Identification Description <+> 2 Implant Identification Lot Number <+> 2 Implant Identification Public Relations Consultant Name: <+> 2 Implant Expiration Date <+> 2 Implant Identification Catalog Number <+> 3 Implant Identification Description <+> 3 Implant Identification Lot Number <+> 3 Implant Identification Public Relations Consultant Name: <+> 3 Implant Expiration Date <+> 3 Implant Identification Catalog Number <+> 4 Implant Identification Description <+> 4 Implant Identification Lot Number <+> 4 Implant Identification Public Relations Consultant Name: <+> 4 Implant Expiration Date <+> 4 Implant Identification Catalog Number <+> 5 Implant Identification Description <+> 5 Implant Identification Lot Number <+> 5 Implant Identification Public Relations Consultant Name: <+> 5 Implant Expiration Date <+> [...] hydrogen peroxide 3% - 1000MG/10 ML COCKTAIL-MICH [id number] Combo Med List Time Administered Route of TOPICALW/ 25ML NACL Administration Dose Dose 1000 Unit of Measure mg Volume 10 ML Administered By NIMO EPPS MD-ORT Procedure Irrigation Irrigant Volume In Irrigant Volume Out Last Modified By: Yessi Ceron Rn Warner, Missy M, Rn Yessi Ceron Rn 08/22/18 07:16:28 08/22/18 07:16:28 08/22/18 07:16:28 Entry 4 Medication/Irrigant vancomycin 1Gm vial - [id number] Combo Med List Time Administered Route of [...] [facility] IntraOp Skin Prep Audit 08/22/18 09:11:45 Service Provider: [id number] Modifier: [id number] 1 <*> Procedure Knee Total Joint Replacement [...] [facility] IntraOp Surgical Procedures Audit 08/22/18 11:15:07 Service Provider: [id number] Modifier: [id number] <+> 1 Stop 08/22/18 10:25:37 Service Provider: [id number] Modifier: [id number] <+> 1 Start [facility] IntraOp Temp Regulation [...] [facility] IntraOp Time Out Audit 08/22/18 09:12:12 Service Provider: [id number] Modifier: [id number] 1 <+> Time Out Pause Time 1 [...] 10:57:10 [facility] IntraOp Tourniquet Audit 08/22/18 10:57:10 Service Provider: [id number] Modifier: [id number] <+> 1 Stop Time 08/22/18 09:33:26 Service Provider: [id number] Modifier: [id number] 1 <*> Removed By JEANNE CASEY PAC 08/22/18 09:13:11 Service Provider: [id number] Modifier: [id number] <+> 1 Start Time Case Comments <None> Finalized By: Yessi Ceron Rn Document Signatures Signed By: Yessi Ceron Rn 08/22/18 11:15 documented in this encounter Plan of Treatment Not on file documented as of this encounter Visit Diagnoses Not on filedocumented in this encounter
--- OUTSIDE RECORDS SUMMARY | 2024-11-29 09:46 | XMS_ITS | Encounter Summary ---
Author Organization [employer] ([place], [place], [place], [place]) Address [address] [place] [address] Care Team Providers Care Health Information Tech Name Role Phone Unavailable Primary Care Provider Unavailabl e Encounter Details Date Type Department Care Team (Late st Contact Info) Description 08/23/2018 Transcribed Document [facility] Family Medicine [facility] [place] [address] ProviderMariela MD [address] [place] [address] Social History Tobacco Use Types [...] 08/23/2018 9:50 EDT by Jett Arroyo Mkt Coach Driver-Utilization Mgt Primary Insurance Authorization Authorization and Policy Numbers : Insurance 1 Health Plan: [facility] MEDICARE ADVANTAGE Policy Number: [id number] Authorization Number: Insurance Primary Name : [facility] medicare advantage [id number] Authorization Status-Primary : Awaiting callback Reference Number-Primary : [id number] Authorized Service Begin Date-Primary : 08/22/2018 EDT Authorization Comments-Primary : Clinicals faxed to [facility] via Min Historical Authorization Comments-Primary : No Authorization Comments Found Jett Arroyo Mkt Coach Driver-Utilization Mgt - 08/23/2018 9:50 EDT Electronically signed by Nikunj Cornejo Conversion Registered Nurse Practitioner Cerner at 06/16/2022 8:10 PM CDT documented in this encounter Plan of Treatment Not on file documented as of this encounter Visit Diagnoses Not on filedocumented in this encounter
--- OUTSIDE RECORDS SUMMARY | 2024-11-29 09:46 | XMS_ITS | Encounter Summary ---
Author Organization [employer] ([place], [place], [place], [place]) Address [address] [place] [address] Care Team Providers Care Riding Coach Name Role Phone Unavailable Primary Care Provider Unavailabl e Encounter Details Date Type Department Care Team (Late st Contact Info) Description 07/12/2019 Transcribed Document [facility] Family Medicine [facility] [place] [address] ProviderMariela MD [address] [place] [address] Social History Tobacco Use Types [...]
--- OUTSIDE RECORDS SUMMARY | 2024-11-29 09:46 | XMS_ITS | Encounter Summary ---
Author Organization [employer] ([place], [place], [place], [place]) Address [address] [place] [address] Care Team Providers Care Hammer Operator Name Role Phone Unavailable Primary Care Provider Unavailabl e Encounter Details Date Type Department Care Team (Late st Contact Info) Description 08/22/2018 Transcribed Document [facility] [place] [address] ProviderMariela MD [address] [place] [address] Social History Tobacco Use Types Packs/Day Years [...] 08/22/2018 9:40 EDT Electronically signed by Chantal [facility] Conversion Inside Sales Agent Cerner at 06/16/2022 8:22 PM CDT documented in this encounter Plan of Treatment Not on file documented as of this encounter Visit Diagnoses Not on filedocumented in this encounter
--- OUTSIDE RECORDS SUMMARY | 2024-11-29 09:47 | XMS_ITS | Encounter Summary ---
Author Organization [employer] ([place], [place], [place], [place]) Address [address] [place] [address] Care Team Providers Care City Administrator Name Role Phone Unavailable Primary Care Provider Unavailabl e Encounter Details Date Type Department Care Team (Late st Contact Info) Description 07/04/2019 Transcribed Document [facility] Family Medicine [facility] [place] [address] ProviderMariela MD [address] [place] [address] Social History Tobacco Use Types Packs/Day [...]
--- OUTSIDE RECORDS SUMMARY | 2024-11-29 09:47 | XMS_ITS | Encounter Summary ---
Author Organization [employer] ([place], [place], [place], [place]) Address [address] [place] [address] Care Team Providers Care Mobile Battery Technician Name Role Phone Unavailable Primary Care Provider Unavailabl e Encounter Details Date Type Department Care Team (Late st Contact Info) Description 07/04/2019 Transcribed Document [facility] Family Medicine [address] [place] [address] ProviderMariela MD [address] [place] [id number] Social History Tobacco Use Types Packs/Day [...] 07/04/2019 3:10 EDT Electronically signed by Chantal [facility] Conversion Fork Truck Driver Min at 06/16/2022 8:23 PM CDT documented in this encounter Plan of Treatment Not on file documented as of this encounter Visit Diagnoses Not on filedocumented in this encounter
--- OUTSIDE RECORDS SUMMARY | 2024-11-29 09:47 | XMS_ITS | Encounter Summary ---
Author Organization [employer] ([place], [place], [place], [place]) Address [address] [place] [address] Care Team Providers Care Dental Instrument Maker Name Role Phone Unavailable Primary Care Provider Unavailabl e Encounter Details Date Type Department Care Team (Late st Contact Info) Description 07/05/2019 Transcribed Document [facility] Radiology [address] [place] [address] Jordan Barahona MD [address] [id number] Social History Tobacco Use Types Packs/Day Years [...] (JULY 02) L 2.4 (JUN 26) Micro: [facility]: 06/15 [facility] Blood cultures positive for group B [...]
--- OUTSIDE RECORDS SUMMARY | 2024-11-29 09:47 | XMS_ITS | Encounter Summary ---
Author Organization [employer] ([place], [place], [place], [place]) Address [address] [place] [address] Care Team Providers Care Virtualization Consultant Name Role Phone Unavailable Primary Care Provider Unavailabl e Encounter Details Date Type Department Care Team (Late st Contact Info) Description 08/20/2020 Transcribed Document [facility] [place] [address] ProviderMariela MD [place] [address] Social History Tobacco Use Types [...] On: 08/20/2020 14:56 EDT by THIERRY GOODRICH home health billing specialist Documentation Time Out Pause Time : 08/20/2020 [...] Procedure Case Attendee Role 3 : RN Air Brakes Inspector Procedure Case Attendee 3 : THIERRY GOODRICH RN Procedure Case Attendee Role 4 : Observer Procedure Case Attendee 4 : Bridget Jauregui RN ELDER, JEAN M RN - 08/20/2020 14:56 EDT Electronically signed by Maureen Cornejo Conversion Chief Transfer And Pumphouse Operator Cerner at 06/16/2022 8:28 PM CDT documented in this encounter Plan of Treatment Not on file documented as of this encounter Visit Diagnoses Not on filedocumented in this encounter
--- OUTSIDE RECORDS SUMMARY | 2024-11-29 09:47 | XMS_ITS | Encounter Summary ---
Author Organization [employer] ([place], [place], [place], [place]) Address [address] [place] [address] Care Team Providers Care Director Channel Name Role Phone Unavailable Primary Care Provider Unavailabl e Encounter Details Date Type Department Care Team (Late st Contact Info) Description 07/05/2019 Transcribed Document [facility] [place] [facility] [place] [address] ProviderMariela MD [facility] [place] [id number] Social History Tobacco Use Types Packs/Day Years [...]
--- OUTSIDE RECORDS SUMMARY | 2024-11-29 09:47 | XMS_ITS | Encounter Summary ---
Author Organization [employer] ([place], [place], [place], [place]) Address [address] [place] [address] Care Team Providers Care Orthodontic Technician Assistant Name Role Phone Unavailable Primary Care Provider Unavailabl e Encounter Details Date Type Department Care Team (Late st Contact Info) Description 08/20/2020 Transcribed Document [facility] Family Medicine [facility] [place] [address] ProviderMariela MD [address] [place] [address] Social History Tobacco Use Types [...]
--- OUTSIDE RECORDS SUMMARY | 2024-11-29 09:47 | XMS_ITS | Encounter Summary ---
Author Organization [employer] ([place], [place], [place], [place]) Address [address] [place] [address] Care Team Providers Care Rubber Boots And Shoes Repairer Name Role Phone Unavailable Primary Care Provider Unavailabl e Encounter Details Date Type Department Care Team (Late st Contact Info) Description 08/23/2018 Transcribed Document [facility] [place] [facility] [place] [address] ProviderMariela MD [address] [place] [address] Social History Tobacco Use Types Packs/Day [...]
--- OUTSIDE RECORDS SUMMARY | 2024-11-29 09:47 | XMS_ITS | Encounter Summary ---
Author Organization [email or web address] ([place], [place], [place], [place]) Address [address] [place] [address] Care Team Providers Care Vibrator Equipment Tester Name Role Phone Unavailable Primary Care Provider Unavailabl e Encounter Details Date Type Department Care Team (Late st Contact Info) Description 07/04/2019 Transcribed Document [facility] Radiology [address] [place] [address] Jordan Barahona MD [address] [id number] Social History Tobacco Use Types Packs/Day Years [...] (JULY 02) L 2.4 (JUN 26) Micro: [facility]: 06/15 [facility] Blood cultures positive for group B strep [...]
--- OUTSIDE RECORDS SUMMARY | 2024-11-29 09:47 | XMS_ITS | Encounter Summary ---
Author Organization [employer] ([place], [place], [place], [place]) Address [address] [place] [address] Care Team Providers Care Traffic Signal Repairer Name Role Phone Unavailable Primary Care Provider Unavailabl e Encounter Details Date Type Department Care Team (Late st Contact Info) Description 08/23/2018 Transcribed Document [facility] [place] [facility] [place] [address] ProviderMariela MD [address] [place] [id number] Social History Tobacco Use Types Packs/Day Years [...]
--- OUTSIDE RECORDS SUMMARY | 2024-11-29 09:47 | XMS_ITS | Encounter Summary ---
Author Organization [employer] ([place], [place], [place], [place]) Address [address] [place] [address] Care Team Providers Care Latin Professor Name Role Phone Unavailable Primary Care Provider Unavailabl e Encounter Details Date Type Department Care Team (Late st Contact Info) Description 08/20/2020 Transcribed Document [facility] [place] [facility] [place] [address] ProviderMariela MD [facility] [place] [address] Social History Tobacco Use [...]
--- OUTSIDE RECORDS SUMMARY | 2024-11-29 09:47 | XMS_ITS | Encounter Summary ---
Author Organization [employer] ([place], [place], [place], [place]) Address [address] [place] [address] Care Team Providers Care Copier Technician Name Role Phone Unavailable Primary Care Provider Unavailabl e Encounter Details Date Type Department Care Team (Late st Contact Info) Description 08/23/2018 Transcribed Document [facility] [place] Family Medicine [facility] [place] [address] ProviderMariela MD [address] [place] [address] Social History Tobacco Use Types Packs/Day Years [...] SWATI BAXTER RN-Charge - 08/23/2018 11:44 EDT Electronically signed by Maureen Cornejo Conversion Finishing Machine Operator Cerbryce at 06/16/2022 8:12 PM CDT documented in this encounter Plan of Treatment Not on file documented as of this encounter Visit Diagnoses Not on filedocumented in this encounter
--- OUTSIDE RECORDS SUMMARY | 2024-11-29 09:47 | XMS_ITS | Encounter Summary ---
Author Organization [employer] ([place], [place], [place], [place]) Address [address] [place] [address] Care Team Providers Care Marble Finisher Name Role Phone Unavailable Primary Care Provider Unavailabl e Encounter Details Date Type Department Care Team (Late st Contact Info) Description 06/27/2019 Transcribed Document [facility] Family Medicine [address] [place] [address] ProviderMariela MD [address] [place] [address] Social History Tobacco Use Types Packs/Day Years [...] Historical ProviderMD - 06/27/2019 9:37 AM CDT CareJadiel Drug Regimen Review, [facility] Entered On: 06/27/2019 9:39 EDT Performed [...] HENDERSON PharmD, BCPS - 06/27/2019 9:37 EDT Electronically signed by Chantal [facility] Conversion Trap Operator Cerner at 06/16/2022 8:23 PM CDT documented in this encounter Plan of Treatment Not on file documented as of this encounter Visit Diagnoses Not on filedocumented in this encounter
--- OUTSIDE RECORDS SUMMARY | 2024-11-29 09:47 | XMS_ITS | Encounter Summary ---
Author Organization [email or web address] ([place], [place], [place], [place]) Address [address] [address] Care Team Providers Care Pinmaker Name Role Phone Unavailable Primary Care Provider Unavailabl e Encounter Details Date Type Department Care Team (Late st Contact Info) Description 08/23/[address] [facility] [place] Family [place] [facility] [place] [address] ProviderMariela MD [address] [place] [address] Social History Tobacco Use Types [...] Barley. Bulgur wheat. Millet. Bran muffins. Popcorn. [place] wafer crackers. ?? Vegetables Sweet potatoes. Spinach. Kale. Artichokes. Cabbage. Broccoli. Green peas. Carrots. Squash. ?? Fruits Berries. Pears. Apples. Oranges. Avocados. Prunes and raisins. Dried figs. ?? Meats and Other Protein Sources [place], kidney, call, and soy beans. Split peas. [...] gray has 11 g of protein. ?? Baca seeds ??? 1 oz has 5.5 g [...] floor. ?? Place frequently used items in gahf-fb-rxliq places ?? Keep electrical cables out of [...] ? Using the bathroom. ? Using household data entry operator or toxic chemicals. ? Touching or [...] pain. Electronically signed by Maureen Cornejo Conversion Industrial Relations Commissioner Cerner at 06/16/2022 8:09 PM CDT documented in this encounter Plan of Treatment Not on file documented as of this encounter Visit Diagnoses Not on filedocumented in this encounter
--- OUTSIDE RECORDS SUMMARY | 2024-11-29 09:47 | XMS_ITS | Encounter Summary ---
Author Organization [employer] ([place], [place], [place], [place]) Address [address] [place] [address] Care Team Providers Care Supply Chain Program Manager Name Role Phone Unavailable Primary Care Provider Unavailabl e Encounter Details Date Type Department Care Team (Late st Contact Info) Description 07/12/2019 Transcribed Document [facility] [place] [facility] [place] [address] ProviderMariela MD [address] [place] [address] Social History Tobacco Use Types Packs/Day Years [...]
--- OUTSIDE RECORDS SUMMARY | 2024-11-29 09:47 | XMS_ITS | Encounter Summary ---
Author Organization [employer] ([place], [place], [place], [place]) Address [address] [place] [address] Care Team Providers Care Lime Kiln And Recausticizing Operator Name Role Phone Unavailable Primary Care Provider Unavailabl e Encounter Details Date Type Department Care Team (Late st Contact Info) Description 07/12/2019 Transcribed Document [facility] [place] [facility] [place] [address] ProviderMariela MD [address] [place] [phone] Social History Tobacco Use Types Packs/Day Years [...]
--- OUTSIDE RECORDS SUMMARY | 2024-11-29 09:47 | XMS_ITS | Encounter Summary ---
Author Organization [employer] ([place], [place], [place], [place]) Address [address] [place] [address] Care Team Providers Care Medical Education Manager Name Role Phone Unavailable Primary Care Provider Unavailabl e Encounter Details Date Type Department Care Team (Late st Contact Info) Description 07/04/2019 Transcribed Document [facility] [place] Family Medicine [address] [place] [address] ProviderMariela MD [address] [place], [place] [phone] Social History Tobacco Use Types Packs/Day Years [...] All Active Orders Reviewed : Yes Caitlyn Chauahn Rn - 07/04/2019 17:53 EDT Electronically signed by Maureen Cornejo Conversion Performance Improvement Coordinator Cerbryce at 06/16/2022 8:05 PM CDT documented in this encounter Plan of Treatment Not on file documented as of this encounter Visit Diagnoses Not on filedocumented in this encounter
--- OUTSIDE RECORDS SUMMARY | 2024-11-29 09:47 | XMS_ITS | Encounter Summary ---
Author Organization [employer] ([place], [place], [place], [place]) Address [address] [place] [address] Care Team Providers Care Shoe Trimmer Name Role Phone Unavailable Primary Care Provider Unavailabl e Encounter Details Date Type Department Care Team (Late st Contact Info) Description 07/05/2019 Transcribed Document [facility] [place] [facility] [place] [address] ProviderMariela MD [address] [place] [address] Social History Tobacco Use Types Packs/Day Years [...] Historical ProviderMD - 07/05/2019 2:00 AM CDT Piecer Details Entered On: 07/05/2019 4:03 EDT Performed [...] 07/05/2019 3:56 EDT Electronically signed by Chantal [facility] Conversion Speech Writer Cerner at 06/16/2022 8:15 PM CDT documented in this encounter Plan of Treatment Not on file documented as of this encounter Visit Diagnoses Not on filedocumented in this encounter
--- OUTSIDE RECORDS SUMMARY | 2024-11-29 09:47 | XMS_ITS | Encounter Summary ---
Author Organization [employer] ([place], [place], [place], [place]) Address [address] [place] [address] Care Team Providers Care Carbonator Name Role Phone Unavailable Primary Care Provider Unavailabl e Encounter Details Date Type Department Care Team (Late st Contact Info) Description 07/05/2019 Transcribed Document [facility] [place] Family Medicine [address] [place] [address] ProviderMariela MD [address] [place], [place] [id number] Social History Tobacco Use Types Packs/Day Years [...] 07/05/2019 4:03 EDT Electronically signed by Chantal [facility] Conversion Etcher Apprentice Min at 06/16/2022 8:13 PM CDT documented in this encounter Plan of Treatment Not on file documented as of this encounter Visit Diagnoses Not on filedocumented in this encounter
--- OUTSIDE RECORDS SUMMARY | 2024-11-29 09:47 | XMS_ITS | Encounter Summary ---
Author Organization [employer] ([place], [place], [place], [place]) Address [address] [place] [address] Care Team Providers Care Litharge Supervisor Name Role Phone Unavailable Primary Care Provider Unavailabl e Encounter Details Date Type Department Care Team (Late st Contact Info) Description 07/04/2019 Transcribed Document [facility] [place] [facility] [place] [address] ProviderMariela MD [address] [place] [phone] Social History Tobacco Use Types Packs/Day Years [...] 0.9% 50 mL 2 Gram, IV Piggyback, [id number] cyanocobalamin 1,000 mcg tab 5,000 mcg 5 [...] fluticasone 0.05% nasal spray 100 mcg 2 [place], Nostrils Both, BID magnesium hydroxide 8% liq [...] 15.8 % LOW Lymph # 1.25 x10(3)/uL Darke % 11.3 % HI Darke # 0.89 K/uL Eos % 2.3 % [...] % 22.6 % Lymph # 1.63 x10(3)/uL Darke % 13.7 % HI Darke # 0.99 K/uL Eos % 2.9 % [...]
--- OUTSIDE RECORDS SUMMARY | 2024-11-29 09:47 | XMS_ITS | Encounter Summary ---
Author Organization [employer] ([place], [place], [place], [place]) Address [address] [place] [address] Care Team Providers Care Dip Dyer Name Role Phone Unavailable Primary Care Provider Unavailabl e Encounter Details Date Type Department Care Team (Late st Contact Info) Description 08/23/2018 Transcribed Document [facility] [place] [facility] [place] [address] ProviderMariela MD [address] [place] [address] Social History Tobacco Use Types Packs/Day Years [...] Historical ProviderMD - 08/23/2018 2:00 AM CDT Piccoloist Details Entered On: 08/23/2018 1:22 EDT Performed [...] Nishi Osuna RN - 08/23/2018 1:22 EDT Electronically signed by Chantal mandeep Conversion Department Store General Manager Cerner at 06/16/2022 8:05 PM CDT documented in this encounter Plan of Treatment Not on file documented as of this encounter Visit Diagnoses Not on filedocumented in this encounter
--- OUTSIDE RECORDS SUMMARY | 2024-11-29 09:47 | XMS_ITS | Encounter Summary ---
Author Organization [employer] ([place], [place], [place], [place]) Address [address] [place] [address] Care Team Providers Care Data Processing Control Clerk Name Role Phone Unavailable Primary Care Provider Unavailabl e Encounter Details Date Type Department Care Team (Late st Contact Info) Description 08/23/2018 Transcribed Document [facility] [place] [address] [place] [address] ProviderMariela MD [address] [place], [place] [phone] Social History Tobacco Use Types Packs/Day Years [...]
--- OUTSIDE RECORDS SUMMARY | 2024-11-29 09:47 | XMS_ITS | Encounter Summary ---
Author Organization [employer] ([place], [place], [place], [place]) Address [address] [place] [address] Care Team Providers Care Oil Inspector Name Role Phone Unavailable Primary Care Provider Unavailabl e Encounter Details Date Type Department Care Team (Late st Contact Info) Description 07/04/2019 Transcribed Document [facility] [place] [address] ProviderMariela MD [address] [place] [phone] Social History Tobacco Use Types Packs/Day Years [...]
--- OUTSIDE RECORDS SUMMARY | 2024-11-29 09:47 | XMS_ITS | Encounter Summary ---
Author Organization [employer] ([place], [place], [place], [place]) Address [address] [place] [address] Care Team Providers Care Flat Folder Name Role Phone Unavailable Primary Care Provider Unavailabl e Encounter Details Date Type Department Care Team (Late st Contact Info) Description 06/19/2019 Transcribed Document [facility] [place] [facility] [place] [address] ProviderMariela MD [address] [place] [address] Social History Tobacco Use Types Packs/Day [...] (JUN 18) L 2.0 (JUN 16) Micro: [facility]: 06/15 [facility] Blood cultures positive for group [...]
--- OUTSIDE RECORDS SUMMARY | 2024-11-29 09:47 | XMS_ITS | Encounter Summary ---
Author Organization [employer] ([place], [place], [place], [place]) Address [address] [place] [address] Care Team Providers Care Wild Animal Caretaker Name Role Phone Unavailable Primary Care Provider Unavailabl e Encounter Details Date Type Department Care Team (Late st Contact Info) Description 07/05/2019 Transcribed Document [facility] [place] [address] ProviderMariela MD [facility] [place] [phone] Social History Tobacco Use Types Packs/Day Years [...] 07/05/2019 7:41 EDT Electronically signed by Chantal [facility] Conversion Salesperson [employer] And Glassware Cerner at 06/16/2022 8:30 PM CDT documented in this encounter Plan of Treatment Not on file documented as of this encounter Visit Diagnoses Not on filedocumented in this encounter
--- OUTSIDE RECORDS SUMMARY | 2024-11-29 09:47 | XMS_ITS | Encounter Summary ---
Author Organization [employer] ([place], [place], [place], [place]) Address [address] [place] [address] Care Team Providers Care Fish Boning Machine Feeder Name Role Phone Unavailable Primary Care Provider Unavailabl e Encounter Details Date Type Department Care Team (Late st Contact Info) Description 07/05/2019 Transcribed Document [facility] [place] [facility] [place] [address] ProviderMariela MD [address] [place] [phone] Social History Tobacco Use Types Packs/Day Years [...] 0.9% 50 mL 2 Gram, IV Piggyback, [id number] cyanocobalamin 1,000 mcg tab 5,000 mcg 5 [...] fluticasone 0.05% nasal spray 100 mcg 2 [place], Nostrils Both, BID magnesium hydroxide 8% [...] 15.8 % LOW Lymph # 1.25 x10(3)/uL [place] % 11.3 % HI [place] # 0.89 K/uL Eos % 2.3 % [...]
--- OUTSIDE RECORDS SUMMARY | 2024-11-29 09:47 | XMS_ITS | Encounter Summary ---
Author Organization [employer] ([place], [place], [place], [place]) Address [address] [place] [address] Care Team Providers Care Scallop Cutter Machine Name Role Phone Unavailable Primary Care Provider Unavailabl e Encounter Details Date Type Department Care Team (Late st Contact Info) Description 08/23/2018 Transcribed Document [facility] [place] [facility] [place] [address] ProviderMariela MD [address] [place] [address] Social History Tobacco Use Types Packs/Day [...] 08/23/2018 11:44 EDT Electronically signed by Chantal [facility] Conversion Cleaner And Trimmer Cerner at 06/16/2022 8:15 PM CDT documented in this encounter Plan of Treatment Not on file documented as of this encounter Visit Diagnoses Not on filedocumented in this encounter
--- OUTSIDE RECORDS SUMMARY | 2024-11-29 09:47 | XMS_ITS | Encounter Summary ---
Author Organization [employer] ([place], [place], [place], [place]) Address [address] [place] [address] Care Team Providers Care Scalper Operator Name Role Phone Unavailable Primary Care Provider Unavailabl e Encounter Details Date Type Department Care Team (Late st Contact Info) Description 08/23/2018 Transcribed Document [facility] [place] [facility] [place] [address] ProviderMariela MD [address] [place] [address] Social History Tobacco Use Types Packs/Day [...]
--- OUTSIDE RECORDS SUMMARY | 2024-11-29 09:47 | XMS_ITS | Encounter Summary ---
Author Organization [employer] ([place], [place], [place], [place]) Address [address] [place] [address] Care Team Providers Care Tour Escort Name Role Phone Unavailable Primary Care Provider Unavailabl e Encounter Details Date Type Department Care Team (Late st Contact Info) Description 06/19/2019 Transcribed Document [facility] [place] [address] ProviderMariela MD [address] [place], [place] [phone] Social History Tobacco Use Types Packs/Day Years [...] [facility] Policy Number: [id number] Authorization Number: Insurance Primary Name : [facility] MEDICARE ADVANTAGE Policy Number: [id number] Authorization Status-Primary : Pending clinicals Reference Number-Primary : [id number] Authorized Service Begin Date-Primary : 06/16/2019 EDT Historical Authorization Comments-Primary : Comment 1: Attempted auth on [facility] portal, message that notification cannot be completed online, Call number on back of card (Michelle Jimenez Rn-Utilization Review 06/17/2019 10:02) TIESHA AQUINO RN-Utilization Review - 06/19/2019 9:28 EDT Electronically signed by Chantal, [facility] Conversion Kardex Clerk Cerner at 06/16/2022 8:15 PM CDT documented in this encounter Plan of Treatment Not on file documented as of this encounter Visit Diagnoses Not on filedocumented in this encounter
--- OUTSIDE RECORDS SUMMARY | 2024-11-29 09:47 | XMS_ITS | Encounter Summary ---
Author Organization [employer] ([place], [place], [place], [place]) Address [address] [place] [address] Care Team Providers Care Cheesemaker Name Role Phone Unavailable Primary Care Provider Unavailabl e Encounter Details Date Type Department Care Team (Late st Contact Info) Description 07/05/2019 Transcribed Document [facility] [place] [facility] [place] [address] ProviderMariela MD [facility] [place] [address] Social History Tobacco Use Types [...] 07/05/2019 7:52 EDT Electronically signed by Chantal [facility] Conversion Revit Drafter Cerner at 06/16/2022 8:21 PM CDT documented in this encounter Plan of Treatment Not on file documented as of this encounter Visit Diagnoses Not on filedocumented in this encounter
--- OUTSIDE RECORDS SUMMARY | 2024-11-29 09:47 | XMS_ITS | Encounter Summary ---
Author Organization [employer] ([place], [place], [place], [place]) Address [address] [place] [address] Care Team Providers Care Red Cap Name Role Phone Unavailable Primary Care Provider Unavailabl e Encounter Details Date Type Department Care Team (Late st Contact Info) Description 07/04/2019 Transcribed Document [facility] [place] [facility] [place] [address] ProviderMariela MD [address] [place] [address] Social History Tobacco Use Types Packs/Day Years [...] Historical ProviderMD - 07/04/2019 2:00 AM CDT Client Associate Details Entered On: 07/04/2019 3:09 EDT Performed [...] 07/04/2019 3:08 EDT Electronically signed by Chantal [facility] Conversion Production Control Pegboard Clerk Cerner at 06/16/2022 8:21 PM CDT documented in this encounter Plan of Treatment Not on file documented as of this encounter Visit Diagnoses Not on filedocumented in this encounter
--- OUTSIDE RECORDS SUMMARY | 2024-11-29 09:48 | XMS_ITS | Encounter Summary ---
Author Organization [employer] ([place], [place], [place], [place]) Address [address] [place] [address] Care Team Providers Care Shellfish Checker Name Role Phone Unavailable Primary Care Provider Unavailabl e Encounter Details Date Type Department Care Team (Late st Contact Info) Description 06/20/2019 Transcribed Document [facility] [place] [facility] [place] [address] ProviderMariela MD [address] [place] [phone] Social History Tobacco Use Types Packs/Day Years [...] Policy Numbers : Insurance 1 Health Plan: [facility] MEDICARE ADVANTAGE Policy Number: [id number] Authorization Number: Insurance Primary Name : [facility] MEDICARE ADVANTAGE Policy Number: [id number] Authorization Status-Primary : Admit approved Reference Number-Primary : [id number] Authorization Number-Primary : [id number] Number of Days Authorized-Primary : 10 Day(s) Authorized Service Begin Date-Primary : 06/16/2019 EDT Authorized Service End Date-Primary : 06/26/2019 EDT Authorization Comments-Primary : [facility] approved per fax for 11 days Historical Authorization Comments-Primary : Comment 1: [facility] auth pending per website (TIESHA AQUINO RN-Utilization Review 06/19/2019 15:52) Comment 2: Clinicals faxed via [employer] (Michelle Jimenez Rn-Utilization Review 06/19/2019 09:50) Comment 3: Attempted auth on [facility] portal, message that notification cannot be completed online, Call number on back of card (Michelle Jimenez Rn-Utilization Review 06/17/2019 10:02) TIESHA AQUINO RN-Utilization Review - 06/20/2019 12:51 EDT Electronically signed by Maureen Cornejo Conversion Press Operator Instant Print Shop Cerner at 06/16/2022 8:18 PM CDT documented in this encounter Plan of Treatment Not on file documented as of this encounter Visit Diagnoses Not on filedocumented in this encounter
--- OUTSIDE RECORDS SUMMARY | 2024-11-29 09:48 | XMS_ITS | Encounter Summary ---
Author Organization [employer] ([place], [place], [place], [place]) Address [address] [place] [address] Care Team Providers Care Domestic Maid Name Role Phone Unavailable Primary Care Provider Unavailabl e Encounter Details Date Type Department Care Team (Late st Contact Info) Description 06/19/2019 Transcribed Document [facility] [place] [facility] [place] [address] ProviderMariela MD [address] [place] [phone] Social History Tobacco Use Types Packs/Day Years [...] Spiritual Care Spiritual Care Referred by : Biodiesel Engine Specialist initiated Reason for Visit : Initial Ministry Provided to : Patient Intervention/Comment/Summary Points : Sy is a 79-year-old patient who is seen awake and resting in bed. She complains of shoulder pain and discomfort. Communicated her concerns to her nurse. Provided pastoral care, empathic listening and emotional support. Also faciliated communication with care team. Taoism Preference : Faith PARTHA KUMAR Chaplain-Non Cert - 06/19/2019 13:10 EDT documented in this encounter Plan of Treatment Not on file documented as of this encounter Visit Diagnoses Not on filedocumented in this encounter
--- OUTSIDE RECORDS SUMMARY | 2024-11-29 09:48 | XMS_ITS | Encounter Summary ---
Author Organization [employer] ([place], [place], [place], [place]) Address [address] [place] [address] Care Team Providers Care Certified Orthotist Name Role Phone Unavailable Primary Care Provider Unavailabl e Encounter Details Date Type Department Care Team (Late st Contact Info) Description 06/20/2019 Transcribed Document [facility] [place] [facility] [place] [address] ProviderMariela MD [address] [place] [address] Social History Tobacco Use Types Packs/Day [...] On: 06/20/2019 11:49 EDT by Halima Tripathi RN-FACTORY MANAGERauto body repair estimator Progress Note Discharge Arrangements : Patient Post-Acute [...] Attend Multidisciplinary Rounds? : No Halima Tripathi RN-FACTORY MANAGER - 06/20/2019 11:49 EDT Narrative Progress Note [...] tomorrow morning. Will continue to follow..............MIKE Adam RN-Access Director - 06/19/19 11:35:19 Halima Tripathi RN-FACTORY MANAGER - 06/20/2019 11:49 EDT Electronically signed by Maureen Cornejo Conversion Health Information Management Director Cerner at 06/16/2022 8:17 PM CDT documented in this encounter Plan of Treatment Not on file documented as of this encounter Visit Diagnoses Not on filedocumented in this encounter
--- OUTSIDE RECORDS SUMMARY | 2024-11-29 09:48 | XMS_ITS | Encounter Summary ---
Author Organization [employer] ([place], [place], [place], [place]) Address [address] [place] [address] Care Team Providers Care Caretaker Grounds Name Role Phone Unavailable Primary Care Provider Unavailabl e Encounter Details Date Type Department Care Team (Late st Contact Info) Description 06/30/2019 Transcribed Document [facility] [place] [address] ProviderMariela MD [address] [place] [phone] Social History Tobacco Use Types Packs/Day Years [...] 06/28/2019 EDT Interdisciplinary Rounds Participants : manager beauty, Dietitian, Occupational Therapist, Pastoral care, Pharmacist, Physical [...] to gluteal cleft and left knee in [place] Abnormality: Knee Left on 06/28/2019 14:37 by [...]
--- OUTSIDE RECORDS SUMMARY | 2024-11-29 09:48 | XMS_ITS | Encounter Summary ---
Author Organization [employer] ([place], [place], [place], [place]) Address [address] [place] [address] Care Team Providers Care Branding Machine Operator Name Role Phone Unavailable Primary Care Provider Unavailabl e Encounter Details Date Type Department Care Team (Late st Contact Info) Description 06/30/2019 Transcribed Document [facility] [place] [facility] [place] [address] ProviderMariela MD [address] [place] [address] Social History Tobacco Use Types Packs/Day [...]
--- OUTSIDE RECORDS SUMMARY | 2024-11-29 09:48 | XMS_ITS | Encounter Summary ---
Author Organization [email or web address] ([place], [place], [place], [place]) Address [address] [place] [address] Care Team Providers Care Sanforizing Machine Operator Name Role Phone Unavailable Primary Care Provider Unavailabl e Encounter Details Date Type Department Care Team (Late st Contact Info) Description 07/13/2019 Transcribed Document [facility] [place] [facility] [place] [address] ProviderMariela MD [address] [place] [address] Social History Tobacco Use Types Packs/Day [...] : 07/12/2019 EDT Interdisciplinary Rounds Participants : technical services manager, Dietitian, Pastoral care, Pharmacist, Other: WOCN [...] for DVT prophylaxis only. Signed By: MASSIEL HNEDERSON PharmD, BCPS СВЕТЛАНА WANG - 07/13/2019 12:12 EDT documented in this encounter Plan of Treatment Not on file documented as of this encounter Visit Diagnoses Not on filedocumented in this encounter
--- OUTSIDE RECORDS SUMMARY | 2024-11-29 09:48 | XMS_ITS | Encounter Summary ---
Author Organization [employer] ([place], [place], [place], [place]) Address [address] [place] [address] Care Team Providers Care Web Solutions Architect Name Role Phone Unavailable Primary Care Provider Unavailabl e Encounter Details Date Type Department Care Team (Late st Contact Info) Description 06/19/[address] [facility] [place] Family Medicine [address] [place] [address] ProviderMariela MD [address] [place], [place] [phone] Social History Tobacco Use Types Packs/Day Years [...]
--- OUTSIDE RECORDS SUMMARY | 2024-11-29 09:48 | XMS_ITS | Encounter Summary ---
Author Organization [employer] ([place], [place], [place], [place]) Address [address] [place] [address] Care Team Providers Care Sap Pi Developer Name Role Phone Unavailable Primary Care Provider Unavailabl e Encounter Details Date Type Department Care Team (Late st Contact Info) Description 07/01/2019 Transcribed Document [facility] [place] Family Medicine [facility] [place] [address] ProviderMariela MD [address] [place], [place] [phone] Social History Tobacco Use Types Packs/Day Years [...] Historical ProviderMD - 07/01/2019 2:00 AM CDT White Spooler Details Entered On: 07/01/2019 0:58 EDT Performed [...] 07/01/2019 0:58 EDT Electronically signed by Chantal [facility] Conversion Operations Officer Trust Department Cerner at 06/16/2022 8:27 PM CDT documented in this encounter Plan of Treatment Not on file documented as of this encounter Visit Diagnoses Not on filedocumented in this encounter
--- OUTSIDE RECORDS SUMMARY | 2024-11-29 09:48 | XMS_ITS | Encounter Summary ---
Author Organization [employer] ([place], [place], [place], [place]) Address [address] [place] [address] Care Team Providers Care Travel Attendants Name Role Phone Unavailable Primary Care Provider Unavailabl e Encounter Details Date Type Department Care Team (Late st Contact Info) Description 06/19/2019 Transcribed Document [facility] [place] [facility] [place] [address] ProviderMariela MD [address] [place], [place] [phone] Social History Tobacco Use Types Packs/Day Years [...] [facility] Policy Number: [id number] Authorization Number: Insurance Primary Name : [facility] MEDICARE ADVANTAGE Policy Number: [id number] Authorization Status-Primary : Pending clinicals Reference Number-Primary : [id number] Authorized Service Begin Date-Primary : 06/16/2019 EDT Authorization Comments-Primary : [facility] auth pending per website Historical Authorization Comments-Primary : Comment 1: Clinicals faxed via Min (Michelle Jimenez Rn-Utilization Review 06/19/2019 09:50) Comment 2: Attempted auth on [facility] portal, message that notification cannot be completed online, Call number on back of card (Michelle Jimenez, Laxmi-Utilization Review 06/17/2019 10:02) TIESHA AQUINO RN-Utilization Review - 06/19/2019 15:52 EDT Electronically signed by [facility] Conversion Senior Media Planner Cerner at 06/16/2022 8:20 PM CDT documented in this encounter Plan of Treatment Not on file documented as of this encounter Visit Diagnoses Not on filedocumented in this encounter
--- OUTSIDE RECORDS SUMMARY | 2024-11-29 09:48 | XMS_ITS | Encounter Summary ---
Author Organization [employer] ([place], [place], [place], [place]) Address [address] [place] [address] Care Team Providers Care Players Assistant Name Role Phone Unavailable Primary Care Provider Unavailabl e Encounter Details Date Type Department Care Team (Late st Contact Info) Description 06/20/2019 Transcribed Document [facility] [place] [facility] [place] [address] ProviderMariela MD [address] [place], [place] [...] Description of Event : Notified by House Delivery Crew Worker that Dr Saenz would not be performing [...]
--- OUTSIDE RECORDS SUMMARY | 2024-11-29 09:48 | XMS_ITS | Encounter Summary ---
Author Organization [employer] ([place], [place], [place], [place]) Address [address] [place] [address] Care Team Providers Care Nutrition Associate Name Role Phone Unavailable Primary Care Provider Unavailabl e Encounter Details Date Type Department Care Team (Late st Contact Info) Description 07/14/2019 Transcribed Document [facility] [place] Family [place] [facility] [place] [address] ProviderMariela MD [address] [place] [address] Social History Tobacco Use Types Packs/Day Years [...] Historical ProviderMD - 07/14/2019 2:00 AM CDT Director Export Details Entered On: 07/14/2019 7:20 EDT Performed [...]
--- OUTSIDE RECORDS SUMMARY | 2024-11-29 09:48 | XMS_ITS | Encounter Summary ---
Author Organization [employer] ([place], [place], [place], [place]) Address [address] [place] [address] Care Team Providers Care Automobiles Salesperson Name Role Phone Unavailable Primary Care Provider Unavailabl e Encounter Details Date Type Department Care Team (Late st Contact Info) Description 06/19/2019 Transcribed Document [facility] [place] [facility] [place] [address] ProviderMariela MD [address] [place] [address] Social History Tobacco Use Types [...] 0.9% 50 mL 2 Gram, IV Piggyback, [id number] clindamycin/D5w 600 mg 50 mL, IV Piggyback, [...] Oral, Q4H fluticasone 0.05% nasal spray 2 [place], Nostrils Both, BID gabapentin 300 mg cap [...] % LOW Lymph # 1.12 K/uL LOW Lane % 6.6 % Lane # 1.64 K/uL HI Eos % 0.1 [...]
--- OUTSIDE RECORDS SUMMARY | 2024-11-29 09:48 | XMS_ITS | Encounter Summary ---
Author Organization [employer] ([place], [place], [place], [place]) Address [address] [place] [address] Care Team Providers Care Advanced Quality Engineer Name Role Phone Unavailable Primary Care Provider Unavailabl e Encounter Details Date Type Department Care Team (Late st Contact Info) Description 07/14/2019 Transcribed Document [facility] [place] [facility] [place] [address] ProviderMariela MD [address] [place] [address] Social History Tobacco Use Types Packs/Day Years [...]
--- OUTSIDE RECORDS SUMMARY | 2024-11-29 09:48 | XMS_ITS | Encounter Summary ---
Author Organization [employer] ([place], [place], [place], [place]) Address [address] [place] [address] Care Team Providers Care Technical Services Librarian Name Role Phone Unavailable Primary Care Provider Unavailabl e Encounter Details Date Type Department Care Team (Late st Contact Info) Description 07/03/2019 Transcribed Document [facility] [place] [facility] [place] [address] ProviderMariela MD [address] [place], [place] [...] Daniella Hunt Dietitian - 07/03/2019 13:43 EDT Electronically signed by Maureen Cornejo Conversion Stitching Department Supervisor Cerner at 06/16/2022 8:03 PM CDT documented in this encounter Plan of Treatment Not on file documented as of this encounter Visit Diagnoses Not on filedocumented in this encounter
--- OUTSIDE RECORDS SUMMARY | 2024-11-29 09:48 | XMS_ITS | Encounter Summary ---
Author Organization [employer] ([place], [place], [place], [place]) Address [address] [place] [address] Care Team Providers Care Gameplay Programmer Name Role Phone Unavailable Primary Care Provider Unavailabl e Encounter Details Date Type Department Care Team (Late st Contact Info) Description 06/29/2019 Transcribed Document [facility] Family Medicine [place] [address] ProviderMariela MD [address] [place] [address] Social History Tobacco Use Types Packs/Day Years [...]
--- OUTSIDE RECORDS SUMMARY | 2024-11-29 09:48 | XMS_ITS | Encounter Summary ---
Author Organization [employer] ([place], [place], [place], [place]) Address [address] [place] [address] Care Team Providers Care Paperback Machine Operator Name Role Phone Unavailable Primary Care Provider Unavailabl e Encounter Details Date Type Department Care Team (Late st Contact Info) Description 06/20/2019 Transcribed Document [facility] [place] Family Medicine [facility] [place] [address] ProviderMariela MD [address] [place] [phone] Social History Tobacco Use Types Packs/Day Years [...] : Yes Central [place] [facility] [place] Insertion Start Date/Time : 06/20/2019 16:10 EDT Central Catheter Type : Power injection PICC Central Line Lot Number : [id number] Central Line Vessel Cannulated : Median basilic [...] 06/20/2019 19:16 EDT Electronically signed by Chantal [facility] Conversion Banjo Repairer Cerner at 06/16/2022 8:06 PM CDT documented in this encounter Plan of Treatment Not on file documented as of this encounter Visit Diagnoses Not on filedocumented in this encounter
--- OUTSIDE RECORDS SUMMARY | 2024-11-29 09:48 | XMS_ITS | Encounter Summary ---
Author Organization [employer] ([place], [place], [place], [place]) Address [address] [place] [address] Care Team Providers Care Mechanical Manufacturing Engineer Name Role Phone Unavailable Primary Care Provider Unavailabl e Encounter Details Date Type Department Care Team (Late st Contact Info) Description 07/14/2019 Transcribed Document [facility] [place] [facility] [place] [address] ProviderMariela MD [address] [place] [address] Social History Tobacco Use Types Packs/Day [...] form. Electronically signed by Maureen Cornejo Conversion Field Reimbursement Manager Cerner at 06/16/2022 8:20 PM CDT documented in this encounter Plan of Treatment Not on file documented as of this encounter Visit Diagnoses Not on filedocumented in this encounter
--- OUTSIDE RECORDS SUMMARY | 2024-11-29 09:48 | XMS_ITS | Encounter Summary ---
Author Organization [employer] ([place], [place], [place], [place]) Address [address] [place] [address] Care Team Providers Care Flat Knitter Name Role Phone Unavailable Primary Care Provider Unavailabl e Encounter Details Date Type Department Care Team (Late st Contact Info) Description 06/19/2019 Transcribed Document [facility] [place] [facility] [place] [address] ProviderMariela MD [address] [place] [address] Social History Tobacco Use Types Packs/Day Years [...] Historical ProviderMD - 06/19/2019 2:00 AM CDT Athletic Agent Details Entered On: 06/19/2019 2:05 EDT Performed [...] Adrianna Ortiz RN - 06/19/2019 2:05 EDT Electronically signed by Maureen Cornejo Conversion Mobile Health Vehicle Operator Cerner at 06/16/2022 8:28 PM CDT documented in this encounter Plan of Treatment Not on file documented as of this encounter Visit Diagnoses Not on filedocumented in this encounter
--- OUTSIDE RECORDS SUMMARY | 2024-11-29 09:48 | XMS_ITS | Encounter Summary ---
Author Organization [employer] ([place], [place], [place], [place]) Address [address] [place] [address] Care Team Providers Care Auto Body Repairman Name Role Phone Unavailable Primary Care Provider Unavailabl e Encounter Details Date Type Department Care Team (Late st Contact Info) Description 06/19/2019 Transcribed Document [facility] [place] [facility] Medicine [facility] [place] [address] ProviderMariela MD [address] [place], [place] [phone] Social History Tobacco Use Types Packs/Day Years [...] : Insurance 1 Health Plan: [facility] MEDICARE ADVANTAGE Policy Number: [id number] Authorization Number: Insurance Primary Name : [facility] MEDICARE ADVANTAGE Policy Number: [id number] Authorization Status-Primary : Pending clinicals Reference Number-Primary : [id number] Authorized Service Begin Date-Primary : 06/16/2019 EDT Historical Authorization Comments-Primary : Comment 1: Attempted auth on [facility] portal, message that notification cannot be completed online, Call number on back of card (Michelle Jimenez Rn-Utilization Review 06/17/2019 10:02) TIESHA AQUINO RN-Utilization Review - 06/19/2019 8:01 EDT Electronically signed by Chantal [facility] Conversion Vaccines Solutions Specialist Cerner at 06/16/2022 8:27 PM CDT documented in this encounter Plan of Treatment Not on file documented as of this encounter Visit Diagnoses Not on filedocumented in this encounter
--- OUTSIDE RECORDS SUMMARY | 2024-11-29 09:48 | XMS_ITS | Encounter Summary ---
Author Organization [employer] ([place], [place], [place], [place]) Address [address] [place] [address] Care Team Providers Care Display Decorator Name Role Phone Unavailable Primary Care Provider Unavailabl e Encounter Details Date Type Department Care Team (Late st Contact Info) Description 08/24/2018 Transcribed Document [facility] [place] [facility] [place] [address] ProviderMariela MD [address] [place] [phone] Social History Tobacco Use Types Packs/Day Years [...] 08/24/2018 8:02 EDT by MARY MCGRAW Care Management-[id number] Armor Crewman Final Discharge Planning Discharge Arrangements : Patient Post-Acute Information Patient Name: SOFIA BARLOW Gender: Female : 44 Age: 78 Years No Post-Acute Placement(s) Listed No Post-Acute Service(s) Listed No [place] Referral(s) Listed Transportation Needs : Family/Friend Discharge To Care Management : SNF with Medicare Certification-03 MARY MCGRAW Care Management-[id number] Armor Crewman - 08/24/2018 8:02 EDT Final Narrative Note Final Narrative Note : Insurance approval obtained for pt to go to [facility] today 08/24 MARY MCGRAW, Care Management-M60A2 Armor Crewman - 08/24/2018 8:02 EDT documented in this encounter Plan of Treatment Not on file documented as of this encounter Visit Diagnoses Not on filedocumented in this encounter
--- OUTSIDE RECORDS SUMMARY | 2024-11-29 09:48 | XMS_ITS | Encounter Summary ---
Author Organization [email or web address] ([place], [place], [place], [place]) Address [address] [place] [address] Care Team Providers Care Vulcanizer Rubber Plate Name Role Phone Unavailable Primary Care Provider Unavailabl e Encounter Details Date Type Department Care Team (Late st Contact Info) Description 07/01/2019 Transcribed Document [facility] [place] [facility] [place] [address] ProviderMariela MD [address] [place] [address] Social History Tobacco Use Types Packs/Day Years [...]
--- OUTSIDE RECORDS SUMMARY | 2024-11-29 09:48 | XMS_ITS | Encounter Summary ---
Author Organization [employer] ([place], [place], [place], [place]) Address [address] [place] [address] Care Team Providers Care Criminal Defense Attorney Name Role Phone Unavailable Primary Care Provider Unavailabl e Encounter Details Date Type Department Care Team (Late st Contact Info) Description 06/20/2019 Transcribed Document [facility] [place] [facility] [place] [address] ProviderMariela MD [address] [place] [address] Social History Tobacco Use Types Packs/Day Years [...] FELTON RUSH OTR/Bartolo - 06/20/2019 13:46 EDT Electronically signed by Maureen Cornejo Conversion Customer Account Coordinator Cerner at 06/16/2022 8:28 PM CDT documented in this encounter Plan of Treatment Not on file documented as of this encounter Visit Diagnoses Not on filedocumented in this encounter
--- OUTSIDE RECORDS SUMMARY | 2024-11-29 09:48 | XMS_ITS | Encounter Summary ---
Author Organization [employer] ([place], [place], [place], [place]) Address [address] [place] [address] Care Team Providers Care Engraver Lettering Name Role Phone Unavailable Primary Care Provider Unavailabl e Encounter Details Date Type Department Care Team (Late st Contact Info) Description 06/30/2019 Transcribed Document [facility] [place] Medicine [facility] [place] [address] ProviderMariela MD [address] [place] [address] Social History Tobacco Use Types Packs/Day [...] Mccormick, Pharmacist-Resident HPI: 06/15 [place] [facility] [place] with chronic [...] Rx to follow, Neelam Mccormick, PharmD # [phone] Electronically signed by Chantal, [facility] Conversion Gasser Machine Operator Cerner at 06/16/2022 8:05 PM CDT documented in this encounter Plan of Treatment Not on file documented as of this encounter Visit Diagnoses Not on filedocumented in this encounter
--- OUTSIDE RECORDS SUMMARY | 2024-11-29 09:48 | XMS_ITS | Encounter Summary ---
Author Organization [employer] ([place], [place], [place], [place]) Address [address] [place] [address] Care Team Providers Care Bath Design Sales Consultant Name Role Phone Unavailable Primary Care Provider Unavailabl e Encounter Details Date Type Department Care Team (Late st Contact Info) Description 06/29/2019 Transcribed Document [facility] [place] [facility] [place] [facility] [place] [address] ProviderMariela MD [address] [place] [address] Social History Tobacco Use Types Packs/Day [...] 0.9% 50 mL 2 Gram, IV Piggyback, [id number] cyanocobalamin 1,000 mcg tab 5,000 mcg 5 [...] 0.05% nasal spray 100 mcg 2 [place], Nostrils Both, BID magnesium hydroxide 8% liq [...]
--- OUTSIDE RECORDS SUMMARY | 2024-11-29 09:48 | XMS_ITS | Encounter Summary ---
Author Organization [employer] ([place], [place], [place], [place]) Address [address] [place] [address] Care Team Providers Care Transitional Studies Instructor Name Role Phone Unavailable Primary Care Provider Unavailabl e Encounter Details Date Type Department Care Team (Late st Contact Info) Description 06/19/2019 Transcribed Document [facility] [place] [address] [place] [address] ProviderMariela MD [address] [place], [place] [phone] Social History Tobacco Use Types Packs/Day Years [...]
--- OUTSIDE RECORDS SUMMARY | 2024-11-29 09:48 | XMS_ITS | Encounter Summary ---
Author Organization [employer] ([place], [place], [place], [place]) Address [address] [place] [address] Care Team Providers Care Landscape Painter Name Role Phone Unavailable Primary Care Provider Unavailabl e Encounter Details Date Type Department Care Team (Late st Contact Info) Description 07/14/2019 Transcribed Document [facility] [place] [address] [place] [address] ProviderMariela MD [address] [place], [place] [phone] Social History Tobacco Use Types Packs/Day Years [...] EDT Electronically signed by Maureen Cornejo Conversion Assistant Professor Of Philosophy Min at 06/16/2022 8:08 PM CDT documented in this encounter Plan of Treatment Not on file documented as of this encounter Visit Diagnoses Not on filedocumented in this encounter
--- OUTSIDE RECORDS SUMMARY | 2024-11-29 09:48 | XMS_ITS | Encounter Summary ---
Author Organization [employer] ([place], [place], [place], [place]) Address [address] [place] [address] Care Team Providers Care Event Management Consultant Name Role Phone Unavailable Primary Care Provider Unavailabl e Encounter Details Date Type Department Care Team (Late st Contact Info) Description 07/02/2019 Transcribed Document [facility] [place] [facility] [place] [address] ProviderMariela MD [address] [place] [address] Social History Tobacco Use Types Packs/Day [...] 0.9% 50 mL 2 Gram, IV Piggyback, [id number] cyanocobalamin 1,000 mcg tab 5,000 mcg 5 [...] fluticasone 0.05% nasal spray 100 mcg 2 [place], Nostrils Both, BID magnesium hydroxide 8% liq [...]
--- OUTSIDE RECORDS SUMMARY | 2024-11-29 09:48 | XMS_ITS | Encounter Summary ---
Author Organization [employer] ([place], [place], [place], [place]) Address [address] [place] [address] Care Team Providers Care Industrial Engineering Name Role Phone Unavailable Primary Care Provider Unavailabl e Encounter Details Date Type Department Care Team (Late st Contact Info) Description 07/01/2019 Transcribed Document [facility] [place] [facility] [place] [address] ProviderMariela MD [address] [place] [address] Social History Tobacco Use Types Packs/Day [...] 0.9% 50 mL 2 Gram, IV Piggyback, [id number] cyanocobalamin 1,000 mcg tab 5,000 mcg 5 [...] fluticasone 0.05% nasal spray 100 mcg 2 [place], Nostrils Both, BID magnesium hydroxide 8% liq [...] prophylaxis. Electronically signed by Maureen Cornejo Conversion Gluing Machine Operator Automatic Cerner at 06/16/2022 8:25 PM CDT documented in this encounter Plan of Treatment Not on file documented as of this encounter Visit Diagnoses Not on filedocumented in this encounter
--- OUTSIDE RECORDS SUMMARY | 2024-11-29 09:48 | XMS_ITS | Encounter Summary ---
Author Organization [employer] ([place], [place], [place], [place]) Address [address] [place] [address] Care Team Providers Care Livestock Farm Manager Name Role Phone Unavailable Primary Care Provider Unavailabl e Encounter Details Date Type Department Care Team (Late st Contact Info) Description 07/02/2019 Transcribed Document [facility] [place] [facility] [place] [address] ProviderMariela MD [address] [place] [address] Social History Tobacco Use Types Packs/Day [...] Devine, Pharmacist-Resident HPI: 06/15 [place] [facility] [place] L-TKA with chronic extensor rupture, [...] for the consult Prabhjot Devine PharmD PGY1 Marketing Professor [phone] documented in this encounter Plan of Treatment Not on file documented as of this encounter Visit Diagnoses Not on filedocumented in this encounter
--- OUTSIDE RECORDS SUMMARY | 2024-11-29 09:48 | XMS_ITS | Encounter Summary ---
Author Organization [employer] ([place], [place], [place], [place]) Address [address] [place] [address] Care Team Providers Care Commissioned Security Officer Name Role Phone Unavailable Primary Care Provider Unavailabl e Encounter Details Date Type Department Care Team (Late st Contact Info) Description 07/03/2019 Transcribed Document [facility] [place] [address] [place] [address] ProviderMariela MD [address] [place], [place] [phone] Social History Tobacco Use Types Packs/Day Years [...]
--- OUTSIDE RECORDS SUMMARY | 2024-11-29 09:48 | XMS_ITS | Encounter Summary ---
Author Organization [employer] ([place], [place], [place], [place]) Address [address] [place] [address] Care Team Providers Care Tool Maker Apprentice Name Role Phone Unavailable Primary Care Provider Unavailabl e Encounter Details Date Type Department Care Team (Late st Contact Info) Description 06/19/2019 Transcribed Document [facility] [place] [facility] [place] [address] ProviderMariela MD [address] [place] [address] Social History Tobacco Use Types [...] Daily fluticasone 50 mcg/inh nasal spray, 2 [place], Nostrils Both, BID, PRN gabapentin, 300 mg= [...] BID fluticasone 50 mcg/inh nasal spray, 2 [place], Nostrils Both, BID, PRN Lasix 40 mg [...] sulfa drugs (Itching) Electronically signed by Chantal [facility] Conversion Broadcast Meteorologist Cerner at 06/16/2022 8:26 PM CDT documented in this encounter Plan of Treatment Not on file documented as of this encounter Visit Diagnoses Not on filedocumented in this encounter
--- OUTSIDE RECORDS SUMMARY | 2024-11-29 09:48 | XMS_ITS | Encounter Summary ---
Author Organization [employer] ([place], [place], [place], [place]) Address [address] [place] [address] Care Team Providers Care Film Processing Supervisor Name Role Phone Unavailable Primary Care Provider Unavailabl e Encounter Details Date Type Department Care Team (Late st Contact Info) Description 06/19/2019 Transcribed Document [facility] [place] Family Medicine [facility] [place] [address] ProviderMariela MD [address] [place] [address] Social History Tobacco Use Types Packs/Day Years [...] Adrianna Ortiz RN - 06/19/2019 23:00 EDT Electronically signed by Maureen Cornejo Conversion Internal Review And Audit Compliance Min at 06/16/2022 8:16 PM CDT documented in this encounter Plan of Treatment Not on file documented as of this encounter Visit Diagnoses Not on filedocumented in this encounter
--- OUTSIDE RECORDS SUMMARY | 2024-11-29 09:48 | XMS_ITS | Encounter Summary ---
Author Organization [employer] ([place], [place], [place], [place]) Address [address] [place] [address] Care Team Providers Care Telecommunication Tower Technician Name Role Phone Unavailable Primary Care Provider Unavailabl e Encounter Details Date Type Department Care Team (Late st Contact Info) Description 06/20/2019 Transcribed Document [facility] [place] Family Medicine [facility] [place] [address] ProviderMariela MD [address] [place] [address] Social History Tobacco Use Types Packs/Day Years [...] Historical ProviderMD - 06/20/2019 2:00 AM CDT Finishing Room Operator Details Entered On: 06/20/2019 1:18 EDT Performed [...] EDT Electronically signed by Maureen Cornejo Conversion Stitch Bonding Machine Tender Cerner at 06/16/2022 8:15 PM CDT documented in this encounter Plan of Treatment Not on file documented as of this encounter Visit Diagnoses Not on filedocumented in this encounter
--- OUTSIDE RECORDS SUMMARY | 2024-11-29 09:48 | XMS_ITS | Encounter Summary ---
Author Organization [employer] ([place], [place], [place], [place]) Address [address] [place] [address] Care Team Providers Care Metal Riveter Name Role Phone Unavailable Primary Care Provider Unavailabl e Encounter Details Date Type Department Care Team (Late st Contact Info) Description 07/14/2019 Transcribed Document [facility] [place] [facility] [place] [address] ProviderMariela MD [address] [place] [address] Social History Tobacco Use Types Packs/Day Years [...]
--- OUTSIDE RECORDS SUMMARY | 2024-11-29 09:48 | XMS_ITS | Encounter Summary ---
Author Organization [employer] ([place], [place], [place], [place]) Address [address] [place] [address] Care Team Providers Care Chief Operator Name Role Phone Unavailable Primary Care Provider Unavailabl e Encounter Details Date Type Department Care Team (Late st Contact Info) Description 06/19/2019 Transcribed Document [facility] [place] [facility] [place] [address] ProviderMariela MD [address] [place] [phone] Social History Tobacco Use Types Packs/Day Years [...] On: 06/19/2019 11:33 EDT by MIKE FRIEDMAN RN-Heater Room HelperElectric Blasting Cap Assembler Progress Note Discharge Arrangements : Patient Post-Acute Information Patient Name: SOFIA GILL Gender: Female : 44 Age: 79 Years No Post-Acute Placement(s) Listed No Post-Acute Service(s) Listed No Curaspan Referral(s) Listed Discharge Options Discussed with Patient : Outpatient services MIKE FRIEDMAN RN-Heater Room Helper - 06/19/2019 11:33 EDT Narrative Progress Note Narrative Progress Note : Patient becoming more agitated and confused, refusing to wear oxygen. Patient now on CPAP, WBC increased, BC x2 positive for group b Strep. Dr Saenz to perform AKA tomorrow morning. Will continue to follow..............MIKE Adam, RN-Heater Room Helper - 06/19/2019 11:33 EDT Electronically signed by Chantal [facility] Conversion Blast Furnace Keeper Cerner at 06/16/2022 8:02 PM CDT documented in this encounter Plan of Treatment Not on file documented as of this encounter Visit Diagnoses Not on filedocumented in this encounter
--- OUTSIDE RECORDS SUMMARY | 2024-11-29 09:48 | XMS_ITS | Encounter Summary ---
Author Organization [employer] ([place], [place], [place], [place]) Address [address] [place] [address] Care Team Providers Care Mathematician Name Role Phone Unavailable Primary Care Provider Unavailabl e Encounter Details Date Type Department Care Team (Late st Contact Info) Description 07/03/2019 Transcribed Document [facility] [place] [facility] [place] [address] ProviderMariela MD [address] [place] [address] Social History Tobacco Use Types Packs/Day Years [...]
--- OUTSIDE RECORDS SUMMARY | 2024-11-29 09:48 | XMS_ITS | Encounter Summary ---
Author Organization [employer] ([place], [place], [place], [place]) Address [address] [place] [address] Care Team Providers Care Asian Art Curator Name Role Phone Unavailable Primary Care Provider Unavailabl e Encounter Details Date Type Department Care Team (Late st Contact Info) Description 06/30/2019 Transcribed Document [facility] [place] [facility] [place] [address] ProviderMariela MD [facility] [place] [address] Social History Tobacco Use [...] 26) ALB L 2.4 (JUN 26) Micro: [facility]: 06/15 [facility] Blood cultures positive for group B [...] esr - will see again on Wednesday Electronically signed by Maureen Cornejo Conversion Telecommunications Switch Technician Cerner at 06/16/2022 8:26 PM CDT documented in this encounter Plan of Treatment Not on file documented as of this encounter Visit Diagnoses Not on filedocumented in this encounter
--- OUTSIDE RECORDS SUMMARY | 2024-11-29 09:48 | XMS_ITS | Encounter Summary ---
Author Organization [email or web address] ([place], [place], [place], [place]) Address [address] [place] [address] Care Team Providers Care Separating Machine Operator Name Role Phone Unavailable Primary Care Provider Unavailadam e Encounter Details Date Type Department Care Team (Late st Contact Info) Description 06/18/2019 Transcribed Document [facility] [place] [address] ProviderMariela MD [address] [place] [address] Social History Tobacco Use Types Packs/Day Years [...] Historical ProviderMD - 06/18/2019 2:00 AM CDT Loss Prevention And Safety Manager Details Entered On: 06/18/2019 6:45 EDT Performed [...] 06/18/2019 6:45 EDT Electronically signed by Chantal [facility] Conversion Pickling Drum Operator Cerner at 06/16/2022 8:23 PM CDT documented in this encounter Plan of Treatment Not on file documented as of this encounter Visit Diagnoses Not on filedocumented in this encounter
--- OUTSIDE RECORDS SUMMARY | 2024-11-29 09:48 | XMS_ITS | Encounter Summary ---
Author Organization [employer] ([place], [place], [place], [place]) Address [address] [place] [address] Care Team Providers Care Glass Sander Name Role Phone Unavailable Primary Care Provider Unavailabl e Encounter Details Date Type Department Care Team (Late st Contact Info) Description 06/18/2019 Transcribed Document [facility] [place] [facility] [place] [address] ProviderMariela MD [address] [place] [address] Social History Tobacco Use Types Packs/Day [...] 0.9% 50 mL 2 Gram, IV Piggyback, [id number] clindamycin/D5w 600 mg 50 mL, IV Piggyback, [...] Oral, Q4H fluticasone 0.05% nasal spray 2 [place], Nostrils Both, BID gabapentin 300 mg cap [...] % LOW ALYC # 1 K/uL NA [place] Percent Man 5 % RBC Morphology Normal [...]
--- OUTSIDE RECORDS SUMMARY | 2024-11-29 09:48 | XMS_ITS | Encounter Summary ---
Author Organization [employer] ([place], [place], [place], [place]) Address [address] [place] [address] Care Team Providers Care Metal Fabricator Welder Name Role Phone Unavailable Primary Care Provider Unavailabl e Encounter Details Date Type Department Care Team (Late st Contact Info) Description 06/30/2019 Transcribed Document [facility] [place] Family Medicine [address] [place] [address] ProviderMariela MD [address] [place], [place] [phone] Social History Tobacco Use Types Packs/Day Years [...]
--- OUTSIDE RECORDS SUMMARY | 2024-11-29 09:48 | XMS_ITS | Encounter Summary ---
Author Organization [employer] ([place], [place], [place], [place]) Address [address] [place] [address] Care Team Providers Care Single End Sewer Name Role Phone Unavailable Primary Care Provider Unavailabl e Encounter Details Date Type Department Care Team (Late st Contact Info) Description 06/30/2019 Transcribed Document [facility] [place] [facility] [place] [address] ProviderMariela MD [address] [place] [address] Social History Tobacco Use Types Packs/Day [...] that oxycodone is not helping her pain ???[place] was added to Nucynta Review of Systems [...] 0.9% 50 mL 2 Gram, IV Piggyback, [id number] cyanocobalamin 1,000 mcg tab 5,000 mcg 5 [...] fluticasone 0.05% nasal spray 100 mcg 2 [place], Nostrils Both, BID magnesium hydroxide 8% liq [...] Stress ulcer prophylaxis. Will switch patient to [place] one Nucynta control her pain. documented in this encounter Plan of Treatment Not on file documented as of this encounter Visit Diagnoses Not on filedocumented in this encounter
--- OUTSIDE RECORDS SUMMARY | 2024-11-29 09:48 | XMS_ITS | Encounter Summary ---
Author Organization [employer] ([place], [place], [place], [place]) Address [address] [place] [address] Care Team Providers Care Travel Rn Name Role Phone Unavailable Primary Care Provider Unavailabl e Encounter Details Date Type Department Care Team (Late st Contact Info) Description 07/01/2019 Transcribed Document [facility] [place] [address] ProviderMariela MD [address] [place] [address] Social History Tobacco Use Types Packs/Day Years [...]
--- OUTSIDE RECORDS SUMMARY | 2024-11-29 09:48 | XMS_ITS | Encounter Summary ---
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 Rx to follow, Chrissy Henderson, PharmD [phone] Electronically signed by Chantal, [facility] Conversion Cable Braider Cerner at 06/16/2022 8:24 PM CDT documented in this encounter Plan of Treatment Not on file documented as of this encounter Visit Diagnoses Not on filedocumented in this encounter
--- OUTSIDE RECORDS SUMMARY | 2024-11-29 09:48 | XMS_ITS | Encounter Summary ---
Author Organization [employer] ([place], [place], [place], [place]) Address [address] [place] [address] Care Team Providers Care Firewall Administrator Name Role Phone Unavailable Primary Care Provider Unavailabl e Encounter Details Date Type Department Care Team (Late st Contact Info) Description 07/14/2019 Transcribed Document [facility] [place] Family Medicine [facility] [place] [address] ProviderMariela MD [address] [place] [address] Social History Tobacco Use Types [...] transported on WednesdayJuly 16 at 2pm by [employer] transport Confirmation # [id number]. She declined the bed offer at [facility] at [facility]. Dr. Jaffe notified of discharge plan. Care Management Note Report : YOANNA ARAUJO RN - 07/13/19 14:37:44 Yoanna Araujo 07/13/2019 1400 received call from Ratna with [facility] offering patient a bed, Received call from Isabelle with [facility] she is looking at patient and needed a current height and weight. Still waiting to see if any other bed offers come through. I also sent referral to [facility]. YOANNA ARAUJO RN - 07/13/19 11:04:03 Yoanna Araujo 07/13/2019 1100 faxed out referral for placement for patient to [facility] and rehab, [facility] emergency department facilities and triology facilities. Awaiting call backs. СВЕТЛАНА WANG - 07/12/19 12:19:17 07/12/2019 Fax received from [facility] with approval for LTAC services with a request for updated discharge plans and clinical info to support needs if not discharged. Auth#[id number]. Clinical review or discharge summary to be faxed by 07/17/2019. YOANNA ARAUJO RN - 07/12/19 08:39:48 Yoanna Araujo 07/12/2019 0830 - faxed clinical review the [facility] at [phone] to request approval for extended ltac services. Auth#[id number], awaiting approval. YOANNA ARAUJO RN - 06/29/19 [...] health and she has been to the [place] [facility] and [facility] in the past. She has the following equipment at home: wheel chair, walker, cane and shower chair. Her discharge plan is to go to rehab prior to returning home. PCP: Flavia MARQUEZ [address] [phone] Sandblaster Glass: Dr. Shemar Barger [phone] Clemente Del Rio MD - Rheumatology - [address] [place] [address] Preferences: Home Health: [facility]: no preferences DME: [facility] - [address], [place] [address] Custodial: [facility] facility: no preferences Will continue to monitor patient for anticipated discharge needs YOANNA ARAUJO RN - 06/29/19 08:30:20 Yoanna Araujo 06/29/2019 0830 received fax from [facility] with approval for extended ltac coverage with next clinical review due on 07/12/2019. Auth#[id number]. Will continue to follow for anticipated discharge needs. YOANNA ARAUJO RN - 06/28/19 08:35:06 Yoanna Araujo 06/28/2019 0830 Faxed clinical review to [facility] at to request approval for extended Ltac services. Auth#[id number]. Pending Approval. Documentation Status Complete : Yes YOANNA ARAUJO RN - 07/14/2019 15:38 EDT Electronically signed by Maureen Cornejo Conversion Social Worker Health Services Cerner at 06/16/2022 8:20 PM CDT documented in this encounter Plan of Treatment Not on file documented as of this encounter Visit Diagnoses Not on filedocumented in this encounter
--- OUTSIDE RECORDS SUMMARY | 2024-11-29 09:48 | XMS_ITS | Encounter Summary ---
Author Organization [employer] ([place], [place], [place], [place]) Address [address] [place] [address] Care Team Providers Care Marketing Proposal Specialist Name Role Phone Unavailable Primary Care Provider Unavailabl e Encounter Details Date Type Department Care Team (Late st Contact Info) Description 07/14/2019 Transcribed Document [facility] [place] [facility] [address] ProviderMariela MD [address] [place] [phone] Social History Tobacco Use Types Packs/Day Years [...] 0.9% 100 mL 2 Gram, IV Piggyback, [id number] cyanocobalamin 1,000 mcg tab 5,000 mcg 5 [...] Oral, Q4H fluticasone 0.05% nasal spray 2 [place], Nostrils Both, BID magnesium hydroxide 8% liq [...] % 21.9 % Lymph # 1.56 x10(3)/uL [place] % 12.0 % HI [place] # 0.85 K/uL Eos % 6.2 % [...] precautions. Stress ulcer prophylaxis. Anticipate DC to intermediate on Wednesday if stable. documented in this encounter Plan of Treatment Not on file documented as of this encounter Visit Diagnoses Not on filedocumented in this encounter
--- OUTSIDE RECORDS SUMMARY | 2024-11-29 09:48 | XMS_ITS | Encounter Summary ---
Author Organization [employer] ([place], [place], [place], [place]) Address [address] [place] [address] Care Team Providers Care Keno Writer Name Role Phone Unavailable Primary Care Provider Unavailabl e Encounter Details Date Type Department Care Team (Late st Contact Info) Description 06/19/2019 Transcribed Document [facility] [place] [facility] [place] [address] ProviderMariela MD [address] [place], [place] [phone] Social History Tobacco Use Types Packs/Day Years [...] Policy Numbers : Insurance 1 Health Plan: [facility] MEDICARE ADVANTAGE Policy Number: [id number] Authorization Number: Insurance Primary Name : [facility] MEDIC[facility] ADVANTAGE Policy Number: [id number] Authorization Status-Primary : Pending clinicals Reference Number-Primary : [id number] Authorized Service Begin Date-Primary : 06/16/2019 EDT Authorization Comments-Primary : Clinicals faxed via Min Historical Authorization Comments-Primary : Comment 1: Attempted auth on [facility] portal, message that notification cannot be completed online, Call number on back of card (Michelle Jimenez Rn-Utilization Review 06/17/2019 10:02) Michelle Jimenez Rn-Utilization Review - 06/19/2019 9:50 EDT documented in this encounter Plan of Treatment Not on file documented as of this encounter Visit Diagnoses Not on filedocumented in this encounter
--- OUTSIDE RECORDS SUMMARY | 2024-11-29 09:48 | XMS_ITS | Encounter Summary ---
Author Organization [employer] ([place], [place], [place], [place]) Address [address] [place] [address] Care Team Providers Care Services Tech Name Role Phone Unavailable Primary Care Provider Unavailabl e Encounter Details Date Type Department Care Team (Late st Contact Info) Description 06/20/2019 Transcribed Document [facility] [place] [facility] [place] [address] ProviderMariela MD [address] [place] [address] Social History Tobacco Use Types Packs/Day Years [...]
--- OUTSIDE RECORDS SUMMARY | 2024-11-29 09:48 | XMS_ITS | Encounter Summary ---
Author Organization [employer] ([place], [place], [place], [place]) Address [address] [place] [address] Care Team Providers Care Driver/Refuse Collector Name Role Phone Unavailable Primary Care Provider Unavailabl e Encounter Details Date Type Department Care Team (Late st Contact Info) Description 06/18/2019 Transcribed Document [facility] [place] [address] [place] [address] ProviderMariela MD [address] [place] [phone] Social History Tobacco Use Types Packs/Day Years [...]
--- OUTSIDE RECORDS SUMMARY | 2024-11-29 09:48 | XMS_ITS | Encounter Summary ---
Author Organization [employer] ([place], [place], [place], [place]) Address [address] [place] [address] Care Team Providers Care Level Glass Vial Filler Name Role Phone Unavailable Primary Care Provider Unavailabl e Encounter Details Date Type Department Care Team (Late st Contact Info) Description 06/30/2019 Transcribed Document [facility] [place] Pending sale to [facility] [address] ProviderMariela MD [address] [place] [address] Social History Tobacco Use Types Packs/Day Years [...] Historical ProviderMD - 06/30/2019 2:00 AM CDT Insurance Salesperson Details Entered On: 06/30/2019 3:12 EDT Performed [...]
--- OUTSIDE RECORDS SUMMARY | 2024-11-29 09:48 | XMS_ITS | Encounter Summary ---
Author Organization [employer] ([place], [place], [place], [place]) Address [address] [place] [address] Care Team Providers Care Certified Master Safe Technician Name Role Phone Unavailable Primary Care Provider Unavailabl e Encounter Details Date Type Department Care Team (Late st Contact Info) Description 07/03/2019 Transcribed Document [facility] [place] [facility] [place] [address] ProviderMariela MD [address] [place] [address] Social History Tobacco Use Types Packs/Day [...] Conversion Note - Mariela Gates MD - 07/03/2019 6:20 PM CDT [...] 0.9% 50 mL 2 Gram, IV Piggyback, [id number] cyanocobalamin 1,000 mcg tab 5,000 mcg 5 [...] fluticasone 0.05% nasal spray 100 mcg 2 [place], Nostrils Both, BID magnesium hydroxide 8% liq [...] % 22.6 % Lymph # 1.63 x10(3)/uL [place] % 13.7 % [place] # 0.99 K/uL Eos % 2.9 % [...]
--- OUTSIDE RECORDS SUMMARY | 2024-11-29 09:48 | XMS_ITS | Encounter Summary ---
Author Organization [employer] ([place], [place], [place], [place]) Address [address] [place] [address] Care Team Providers Care Hog Driver Name Role Phone Unavailable Primary Care Provider Unavailabl e Encounter Details Date Type Department Care Team (Late st Contact Info) Description 06/29/2019 Transcribed Document [facility] [place] [facility] [place] [address] ProviderMariela MD [address] [place] [phone] Social History Tobacco Use Types Packs/Day Years [...] She denies ever requiring dialysis. She [facility] and she has been to the [place] [facility] and [facility] in the past. She has the following equipment at home: wheel chair, walker, cane and shower chair. Her discharge plan is to go to rehab prior to returning home. PCP: Flavia MARQUEZ [address] [phone] Access Nurse: Dr. Shemar Barger [address] [place] [facility] [place] [facility] [address] [facility] [phone] Clemente Del Rio MD - Rheumatology - [address] [phone] Preferences: Home Health: [email or web address]: no preferences DME: [facility] - [address], [place] [phone] Correction: [place] [facility] facility: no preferences Will continue to monitor patient for anticipated discharge needs Care Management Note Report : YOANNA ARAUJO RN - 06/29/19 08:30:20 Yoanna Araujo 06/29/2019 0830 received fax from [facility] with approval for extended ltac coverage with next clinical review due on 07/12/2019. Auth#[id number]. Will continue to follow for anticipated discharge needs. YOANNA ARAUJO RN - 06/28/19 08:35:06 Yoanna Araujo 06/28/2019 0830 Faxed clinical review to [facility] at to request approval for extended Ltac services. Auth#[id number]. Pending Approval. Documentation Status Complete : Yes YOANNA ARAUJO RN - 06/29/2019 17:14 EDT documented in this encounter Plan of Treatment Not on file documented as of this encounter Visit Diagnoses Not on filedocumented in this encounter
--- OUTSIDE RECORDS SUMMARY | 2024-11-29 09:48 | XMS_ITS | Encounter Summary ---
Author Organization [employer] ([place], [place], [place], [place]) Address [address] [place] [address] Care Team Providers Care Ecommerce Merchandising Manager Name Role Phone Unavailable Primary Care Provider Unavailabl e Encounter Details Date Type Department Care Team (Late st Contact Info) Description 07/03/2019 Transcribed Document [facility] Radiology [address] [place] [address] Jordan Barahona MD [address] [phone] Social History Tobacco Use Types Packs/Day Years [...] (JULY 02) L 2.4 (JUN 26) Micro: [facility]: 06/15 [facility] Blood cultures positive for group [...]
--- OUTSIDE RECORDS SUMMARY | 2024-11-29 09:49 | XMS_ITS | Encounter Summary ---
Author Organization [employer] ([place], [place], [place], [place]) Address [address] [place] [address] Care Team Providers Care Resource Coordinator Name Role Phone Unavailable Primary Care Provider Unavailabl e Encounter Details Date Type Department Care Team (Late st Contact Info) Description 06/21/2019 Transcribed Document [facility] [place] [facility] [place] [address] ProviderMariela MD [address] [place] [address] Social History Tobacco Use Types Packs/Day [...] On: 06/21/2019 16:35 EDT by MIKE FRIEDMAN RN-Hspt TutorDonor Floor Technician Progress Note Discharge Arrangements : Patient Post-Acute [...] Pt/Fam/Support Person : Other: N/A MIKE FRIEDMAN RN-Hspt Tutor - 06/21/2019 16:35 EDT Narrative Progress Note Narrative Progress Note : Was planning for AKA, now patient will undergo a total joint revision with I&D. Will continue to follow.............faby Historical Progress Note : PICC line placed, Per LID, plan for usp IV abx. Surgery scheduled for today................MIKE Adam RN-Hspt Tutor - 06/21/19 10:06:05 No MDR this AM with provider. Patient with low-grade fever this AM and throughout the night. COTY was rescheduled for 06/20 for this reason. CM will continue to follow. Halima Tripathi RN-ENAMEL APPLIER - 06/20/19 11:50:51 Patient becoming more agitated and confused, refusing to wear oxygen. Patient now on CPAP, WBC increased, BC x2 positive for group b Strep. Dr Saenz to perform AKA tomorrow morning. Will continue to follow..............MIKE Adam RN-Hspt Tutor - 06/19/19 11:35:19 MIKE FRIEDMAN RN-Hspt Tutor - 06/21/2019 16:35 EDT documented in this encounter Plan of Treatment Not on file documented as of this encounter Visit Diagnoses Not on filedocumented in this encounter
--- OUTSIDE RECORDS SUMMARY | 2024-11-29 09:49 | XMS_ITS | Encounter Summary ---
Author Organization [employer] ([place], [place], [place], [place]) Address [address] [place] [address] Care Team Providers Care Clockmaker Name Role Phone Unavailable Primary Care Provider Unavailabl e Encounter Details Date Type Department Care Team (Late st Contact Info) Description 06/21/[address] [facility] [place] Family Medicine [address] [place] [address] ProviderMariela MD [address] [place], [place] [id number] Social History Tobacco Use Types Packs/Day Years [...]
--- OUTSIDE RECORDS SUMMARY | 2024-11-29 09:49 | XMS_ITS | Encounter Summary ---
Author Organization [employer] ([place], [place], [place], [place]) Address [address] [place] [address] Care Team Providers Care Training And Development Specialist Name Role Phone Unavailable Primary Care Provider Unavailabl e Encounter Details Date Type Department Care Team (Late st Contact Info) Description 06/20/2019 Transcribed Document [facility] [place] Medicine [facility] [place] [address] ProviderMariela [place] [address] Social History Tobacco Use Types [...] 18) L 2.0 (JUN 16) Micro: [facility]: 06/15 [facility] Blood cultures positive for group B strep and 2/2 bottles SJE: 06/16 fluid aspiration of left knee shows 118,150 white blood cells, GPC 06/16 repeat blood cultures with Group B Strep 06/16 MRSA surveillance culture and pro/pending 06/16 Urine culture in process/pending Rad: Radiology Results (Last 48 hours) [id number] -- 06/16/2019 21:08 CR Knee 1 or [...]
--- OUTSIDE RECORDS SUMMARY | 2024-11-29 09:49 | XMS_ITS | Encounter Summary ---
Author Organization [employer] ([place], [place], [place], [place]) Address [address] [place] [address] Care Team Providers Care Water Supervisor Name Role Phone Unavailable Primary Care Provider Unavailabl e Encounter Details Date Type Department Care Team (Late st Contact Info) Description 06/21/2019 Transcribed Document [facility] [place] [facility] [place] [address] ProviderMariela MD [address] [place] [address] Social History Tobacco Use Types Packs/Day Years [...]
--- OUTSIDE RECORDS SUMMARY | 2024-11-29 09:49 | XMS_ITS | Encounter Summary ---
Author Organization [employer] ([place], [place], [place], [place]) Address [address] [place] [address] Care Team Providers Care Patient Service Representative Name Role Phone Unavailable Primary Care Provider Unavailabl e Encounter Details Date Type Department Care Team (Late st Contact Info) Description 08/24/2018 Transcribed Document [facility] [place] [facility] [place] [address] ProviderMariela MD [address] [place] [address] Social History Tobacco Use Types Packs/Day [...] Performed On: 08/24/2018 10:36 EDT by Vianca Moragn RN Intervention Information: acetaminophen Performed by Vianca [...]
--- OUTSIDE RECORDS SUMMARY | 2024-11-29 09:49 | XMS_ITS | Encounter Summary ---
Author Organization [employer] ([place], [place], [place], [place]) Address [address] [place] [address] Care Team Providers Care Retail Loss Prevention Investigator Name Role Phone Unavailable Primary Care Provider Unavailabl e Encounter Details Date Type Department Care Team (Late st Contact Info) Description 08/24/2018 Transcribed Document [facility] [place] [facility] [place] [address] ProviderMarieal MD [facility] [place] [address] Social History Tobacco Use Types [...] Lymph # 1.73 K/uL 08/24/2018 04:17 EDT [place] % 11.2 % 08/24/2018 04:17 EDT [place] # 1.30 K/uL (High) 08/24/2018 04:17 EDT [...] Appearance CLEAR2 08/23/2018 11:55 EDT Urine Specific [place] 1.022 08/23/2018 11:55 EDT Urine pH Dipstick [...]
--- OUTSIDE RECORDS SUMMARY | 2024-11-29 09:49 | XMS_ITS | Encounter Summary ---
Author Organization [employer] ([place], [place], [place], [place]) Address [address] [place] [address] Care Team Providers Care Studio Sales Associate Name Role Phone Unavailable Primary Care Provider Unavailabl e Encounter Details Date Type Department Care Team (Late st Contact Info) Description 06/21/2019 Transcribed Document [facility] [place] Family Medicine [address] [place] [address] ProviderMariela MD [address] [place], [place] [phone] Social History Tobacco Use Types Packs/Day Years [...]
--- OUTSIDE RECORDS SUMMARY | 2024-11-29 09:49 | XMS_ITS | Encounter Summary ---
Author Organization [employer] ([place], [place], [place], [place]) Address [address] [place] [address] Care Team Providers Care Assistant Softball Coach Name Role Phone Unavailable Primary Care Provider Unavailabl e Encounter Details Date Type Department Care Team (Late st Contact Info) Description 08/23/2018 Transcribed Document [facility] [place] [address] [place] [address] ProviderMariela MD [address] [place], [place] [phone] Social History Tobacco Use Types Packs/Day Years [...]
--- OUTSIDE RECORDS SUMMARY | 2024-11-29 09:49 | XMS_ITS | Encounter Summary ---
Author Organization [email or web address] ([place], [place], [place], [place]) Address [address] [place] [address] Care Team Providers Care Production Manager Name Role Phone Unavailable Primary Care Provider Unavailabl e Encounter Details Date Type Department Care Team (Late st Contact Info) Description 08/24/2018 Transcribed Document [facility] [place] [facility] [place] [address] ProviderMariela MD [address] [place] [address] Social History Tobacco Use Types Packs/Day Years [...] Historical ProviderMD - 08/24/2018 2:00 AM CDT Flatbed Truck Driver Details Entered On: 08/24/2018 0:59 EDT Performed [...] 08/24/2018 0:59 EDT Electronically signed by Chantal [facility] Conversion National Sales Representative Cerner at 06/16/2022 8:18 PM CDT documented in this encounter Plan of Treatment Not on file documented as of this encounter Visit Diagnoses Not on filedocumented in this encounter
--- OUTSIDE RECORDS SUMMARY | 2024-11-29 09:49 | XMS_ITS | Encounter Summary ---
Author Organization [employer] ([place], [place], [place], [place]) Address [address] [place] [address] Care Team Providers Care Financial Retirement Plan Specialist Name Role Phone Unavailable Primary Care Provider Unavailabl e Encounter Details Date Type Department Care Team (Late st Contact Info) Description 06/21/2019 Transcribed Document [facility] Family Medicine [facility] [place] [address] ProviderMariela MD [address] [place] [address] Social History Tobacco Use Types Packs/Day Years [...] Conversion Note - Mariela ProviderMD - 06/21/2019 9:23 AM CDT Consult [...]
--- OUTSIDE RECORDS SUMMARY | 2024-11-29 09:49 | XMS_ITS | Encounter Summary ---
Author Organization [employer] ([place], [place], [place], [place]) Address [address] [place] [address] Care Team Providers Care Tail Board Man Name Role Phone Unavailable Primary Care Provider Unavailabl e Encounter Details Date Type Department Care Team (Late st Contact Info) Description 08/24/2018 Transcribed Document [facility] [place] [address] [place] [address] ProviderMariela MD [address] [place], [place] [phone] Social History Tobacco Use Types Packs/Day Years [...]
--- OUTSIDE RECORDS SUMMARY | 2024-11-29 09:49 | XMS_ITS | Encounter Summary ---
Author Organization [employer] ([place], [place], [place], [place]) Address [address] [place] [address] Care Team Providers Care Insurance Verify Rep Name Role Phone Unavailable Primary Care Provider Unavailabl e Encounter Details Date Type Department Care Team (Late st Contact Info) Description 06/20/2019 Transcribed Document [facility] [place] Family Medicine [facility] [place] [address] ProviderMariela MD [address] [place] [address] Social History Tobacco Use Types Packs/Day Years [...]
--- OUTSIDE RECORDS SUMMARY | 2024-11-29 09:49 | XMS_ITS | Encounter Summary ---
Author Organization [employer] ([place], [place], [place], [place]) Address [address] [place] [address] Care Team Providers Care Freedom Of Information Officer Name Role Phone Unavailable Primary Care Provider Unavailabl e Encounter Details Date Type Department Care Team (Late st Contact Info) Description 08/24/2018 Transcribed Document [facility] [place] [facility] [place] [address] ProviderMariela MD [address] [place], [place] [phone] Social History Tobacco Use Types Packs/Day Years [...] Care Spiritual Care Referred by : Nuclear Plant Technical Advisor initiated Reason for Visit : Initial Ministry Provided to : Patient Intervention/Comment/Summary Points : Pt had total right kne repalcement surgery on Wednesday - Aug 22. Pt stated that she os going to [facility] tomorrow for rehab. Pt shared that her surgery went well. Nuclear Plant Technical Advisor prayed for pt's rehab an dhealing of pt's right knee. ADELAIDE JJ CHAPLAIN - 08/24/2018 20:40 EDT Electronically signed by Chantal [facility] Conversion Car Greaser Cerner at 06/16/2022 8:22 PM CDT documented in this encounter Plan of Treatment Not on file documented as of this encounter Visit Diagnoses Not on filedocumented in this encounter
--- OUTSIDE RECORDS SUMMARY | 2024-11-29 09:49 | XMS_ITS | Encounter Summary ---
Author Organization [employer] ([place], [place], [place], [place]) Address [address] [place] [address] Care Team Providers Care Asphalt Roller Operator Name Role Phone Unavailable Primary Care Provider Unavailabl e Encounter Details Date Type Department Care Team (Late st Contact Info) Description 06/21/2019 Transcribed Document [facility] [place] [facility] [place] [address] ProviderMariela MD [address] [place] [address] Social History Tobacco Use Types Packs/Day [...] EDT Treatment Time : 25 Minute(s) MUKUL MRATINEZ, PT - 06/22/2019 15:40 EDT History and [...] MUKUL MARTINEZ, PT - 06/22/2019 15:40 EDT Jail Goals Other PT LTG Grid [...] MUKUL MARTINEZ, PT - 06/22/2019 15:40 EDT [place] PT Charges PT Ther Activities Ea 15 Min : 1 PT Eval Moderate Complexity : 1 MUKUL MARTINEZ PT - 06/22/2019 15:40 EDT documented in this encounter Plan of Treatment Not on file documented as of this encounter Visit Diagnoses Not on filedocumented in this encounter
--- OUTSIDE RECORDS SUMMARY | 2024-11-29 09:49 | XMS_ITS | Encounter Summary ---
Author Organization [employer] ([place], [place], [place], [place]) Address [address] [place] [address] Care Team Providers Care Steel Die Press Set Up Operator Name Role Phone Unavailable Primary Care Provider Unavailabl e Encounter Details Date Type Department Care Team (Late st Contact Info) Description 08/23/2018 Transcribed Document [facility] [place] [facility] [place] [address] ProviderMariela MD [address] [place] [address] Social History Tobacco Use Types Packs/Day [...]
--- OUTSIDE RECORDS SUMMARY | 2024-11-29 09:49 | XMS_ITS | Encounter Summary ---
Author Organization [employer] ([place], [place], [place], [place]) Address [address] [place] [address] Care Team Providers Care Cooper Helper Name Role Phone Unavailable Primary Care Provider Unavailabl e Encounter Details Date Type Department Care Team (Late st Contact Info) Description 08/23/2018 Transcribed Document [facility] [place] [address] ProviderMariela MD [address] [place] [address] Social History Tobacco Use Types Packs/Day [...]
--- OUTSIDE RECORDS SUMMARY | 2024-11-29 09:49 | XMS_ITS | Encounter Summary ---
Author Organization [employer] ([place], [place], [place], [place]) Address [address] [place] [address] Care Team Providers Care Safety Assistant Name Role Phone Unavailable Primary Care Provider Unavailabl e Encounter Details Date Type Department Care Team (Late st Contact Info) Description 06/21/2019 Transcribed Document [facility] [place] Medicine [facility] [place] [address] ProviderMariela MD [address] [place] [address] Social History Tobacco Use Types Packs/Day Years [...] Historical ProviderMD - 06/21/2019 2:00 AM CDT Shellacker Details Entered On: 06/21/2019 0:38 EDT Performed [...]
--- OUTSIDE RECORDS SUMMARY | 2024-11-29 09:49 | XMS_ITS | Encounter Summary ---
Author Organization [employer] ([place], [place], [place], [place]) Address [address] [place] [address] Care Team Providers Care Sheet Roller Operator Name Role Phone Unavailable Primary Care Provider Unavailabl e Encounter Details Date Type Department Care Team (Late st Contact Info) Description 06/21/2019 Transcribed Document [facility] [place] Medicine [facility] [place] [address] ProviderMariela MD [facility] [place] [address] Social History Tobacco Use [...] (JUN 18) L 2.0 (JUN 16) Micro: [facility]: 06/15 [facility] Blood cultures positive for group B strep and 2/2 bottles SJE: 06/16 fluid aspiration of left knee shows 118,150 white blood cells, GPC 06/16 repeat blood cultures with Group B Strep 06/16 MRSA surveillance culture and pro/pending 06/16 Urine culture in process/pending Rad: Radiology Results (Last 48 hours) [id number] -- 06/16/2019 21:08 CR Knee 1 or [...]
--- OUTSIDE RECORDS SUMMARY | 2024-11-29 09:49 | XMS_ITS | Encounter Summary ---
Author Organization [employer] ([place], [place], [place], [place]) Address [address] [place] [address] Care Team Providers Care Woodworking Bench Carpenter Name Role Phone Unavailable Primary Care Provider Unavailabl e Encounter Details Date Type Department Care Team (Late st Contact Info) Description 06/20/2019 Transcribed Document [facility] [place] [address] [place] [address] ProviderMariela MD [address] [place], [place] [phone] Social History Tobacco Use Types Packs/Day Years [...] Adrianna Ortiz RN - 06/20/2019 3:42 EDT Electronically signed by Maureen Cornejo Conversion Vocational Rehabilitation Administrator Min at 06/16/2022 8:07 PM CDT documented in this encounter Plan of Treatment Not on file documented as of this encounter Visit Diagnoses Not on filedocumented in this encounter
--- OUTSIDE RECORDS SUMMARY | 2024-11-29 09:49 | XMS_ITS | Encounter Summary ---
Author Organization [employer] ([place], [place], [place], [place]) Address [address] [place] [address] Care Team Providers Care Glass Laminating Operator Name Role Phone Unavailable Primary Care Provider Unavailabl e Encounter Details Date Type Department Care Team (Late st Contact Info) Description 08/24/2018 Transcribed Document [facility] [place] [facility] [place] [address] ProviderMariela MD [address] [place] [address] Social History Tobacco Use Types Packs/Day [...]
--- OUTSIDE RECORDS SUMMARY | 2024-11-29 09:49 | XMS_ITS | Encounter Summary ---
Author Organization [employer] ([place], [place], [place], [place]) Address [address] [place] [address] Care Team Providers Care Schedule Analyst Name Role Phone Unavailable Primary Care Provider Unavailabl e Encounter Details Date Type Department Care Team (Late st Contact Info) Description 08/24/2018 Transcribed Document [facility] [place] [address] [place] [address] ProviderMariela MD [address] [place], [place] [phone] Social History Tobacco Use Types Packs/Day Years [...]
--- OUTSIDE RECORDS SUMMARY | 2024-11-29 09:49 | XMS_ITS | Encounter Summary ---
Author Organization [employer] ([place], [place], [place], [place]) Address [address] [place] [address] Care Team Providers Care Aviation Survival Technician Name Role Phone Unavailable Primary Care Provider Unavailabl e Encounter Details Date Type Department Care Team (Late st Contact Info) Description 08/24/2018 Transcribed Document [facility] [place] [facility] [place] [address] ProviderMariela MD [address] [place] [address] Social History Tobacco Use Types Packs/Day [...]
--- OUTSIDE RECORDS SUMMARY | 2024-11-29 09:49 | XMS_ITS | Encounter Summary ---
Author Organization [employer] ([place], [place], [place], [place]) Address [address] [place] [address] Care Team Providers Care Barber Shop Manager Name Role Phone Unavailable Primary Care Provider Unavailabl e Encounter Details Date Type Department Care Team (Late st Contact Info) Description 06/20/2019 Transcribed Document [facility] [place] [facility] [address] ProviderMariela MD [address] [place] [address] Social History Tobacco Use Types Packs/Day [...] 0.9% 50 mL 2 Gram, IV Piggyback, E03HQer cyanocobalamin 1,000 mcg tab 5,000 mcg 5 [...] Oral, Q4H fluticasone 0.05% nasal spray 2 [place], Nostrils Both, BID gabapentin 300 mg cap [...] % LOW ALYC # 1 K/uL NA [place]mers Percent Man 7 % HI RBC Morphology [...] % LOW Lymph # 1.12 K/uL LOW [place] % 6.6 % [place] # 1.64 K/uL HI Eos % 0.1 [...]
--- OUTSIDE RECORDS SUMMARY | 2024-11-29 09:49 | XMS_ITS | Encounter Summary ---
Author Organization [employer] ([place], [place], [place], [place]) Address [address] [place] [address] Care Team Providers Care Pipe Crew Foreman Name Role Phone Unavailable Primary Care Provider Unavailabl e Encounter Details Date Type Department Care Team (Late st Contact Info) Description 06/21/2019 Transcribed Document [facility] [place] [facility] [place] [address] ProviderMariela MD [address] [place] [address] Social History Tobacco Use Types Packs/Day [...] UE Strength Comment : Grossly 4/5 Hand Window Unit Air Conditioning Mechanic Test : Min decreased bilaterally Fine Motor [...] RUSH, FELTON, OTR/Bartolo - 06/23/2019 11:27 EDT Correction Goals, OT Other LTG Grid [...] the text rendition version of the form. [place] OT Charges OT Selfcare/Hm Mgmt Ea 15 Min : 2 OT Eval Moderate Complexity : 1 FELTON RUSH OTR/Bartolo - 06/23/2019 11:27 EDT documented in this encounter Plan of Treatment Not on file documented as of this encounter Visit Diagnoses Not on filedocumented in this encounter
--- OUTSIDE RECORDS SUMMARY | 2024-11-29 09:50 | XMS_ITS | Encounter Summary ---
Author Organization [employer] ([place], [place], [place], [place]) Address [address] [place] [address] Care Team Providers Care Terminal Gauger Name Role Phone Unavailable Primary Care Provider Unavailabl e Encounter Details Date Type Department Care Team (Late st Contact Info) Description 06/21/2019 Transcribed Document [facility] [place] [facility] [place] [address] ProviderMariela MD [address] [place] [address] Social History Tobacco Use Types [...] Mariela ProviderMD - 06/21/2019 8:50 AM CDT [facility] [place] Main [place] PreOp Summary Primary Physician: NIMO EPPS MD-ORT Finalized Date/Time: 06/21/19 11:49:12 Pt. Name: SOFIA GILL S /Sex: 1940 Female Med Rec #: [id number] Physician: DONNA DRIVER MD-INT Financial #: [id number] Pt. Type: I Room/Bed: 509/1 Admit/Disch: 06/16/19 21:08:00 - Institution: [facility] PreOp Case Times Entry 1 In Preop 06/21/19 09:15:00 Ready for Holding n/a Room Patient Ready for 06/21/19 10:20:00 Surgery Patient Out of Preop 06/21/19 11:41:00 Patient Out of n/a Holding Room Last Modified By: OZZIE PARSON RN 06/21/19 11:49:08 Tita PreOp Case Times Audit 06/21/19 11:49:08 Section Crews Activities Clerk: HORACIO Modifier: [id number] <+> 1 Patient Out of Preop Finalized By: OZZIE PARSON RN Document Signatures Signed By: OZZIE PARSON RN 06/21/19 11:49 documented in this encounter Plan of Treatment Not on file documented as of this encounter Visit Diagnoses Not on filedocumented in this encounter
--- OUTSIDE RECORDS SUMMARY | 2024-11-29 09:50 | XMS_ITS | Encounter Summary ---
Author Organization [facility] Address [address] [place] [address] Care Team Providers Care Frankfurter Inspector Name Role Phone Gracia Cleaning Dr Primary Care Provider Unavailabl e Encounter Details Date Type Department Care Team (Latest Contact Info) Description 11/13/2024 Travel Social History Tobacco Use Types Packs/Day [...] Description 11/12/2025 11:15 AM EDT [facility] [address] [facility] [address] [place] [address] Deepa Lama MD [address] [facility] [address] [place] [address] documented as of this encounter Visit Diagnoses Not on filedocumented in this encounter Care Teams Frankfurter Inspector Relationship Specialty Start Date End Date Gracia Cleaning Dr. PCP - General 09/18/24 documented as of this encounter
--- OUTSIDE RECORDS SUMMARY | 2024-11-29 09:50 | XMS_ITS | Encounter Summary ---
Author Organization [employer] ([place], [place], [place], [place]) Address [address] [place] [address] Care Team Providers Care Finishing Area Operator Name Role Phone Unavailable Primary Care Provider Unavailabl e Encounter Details Date Type Department Care Team (Late st Contact Info) Description 08/25/2018 Transcribed Document [facility] [place] Family Medicine [address] [place] [address] ProviderMariela MD [address] [place], [place] [phone] Social History Tobacco Use Types Packs/Day Years [...]
--- OUTSIDE RECORDS SUMMARY | 2024-11-29 09:50 | XMS_ITS | Encounter Summary ---
Author Organization [employer] ([place], [place], [place], [place]) Address [address] [place] [address] Care Team Providers Care Acid Purifier Name Role Phone Unavailable Primary Care Provider Unavailabl e Encounter Details Date Type Department Care Team (Late st Contact Info) Description 08/25/2018 Transcribed Document [facility] [place] Family Medicine [facility] [place] [address] ProviderMariela MD [facility] [place], [place] [id number] Social History Tobacco Use Types Packs/Day Years [...] to perform isometric exercises at this time. LATHE TURNER instructed pt in isometrics and issued written instructions. Nursing will take care of stand-pivot [place] [facility] [place]. CHAITANYA SIMON, PT - 08/25/2018 16:46 EDT Care Home Goals Other PT LTG Grid Goal #1 [...] knee flexion. Pt going to rehab CHAITANYA SMION, PT - 08/25/2018 16:46 EDT CHAITANYA SIMON, PT - 08/25/2018 16:46 EDT CHAITANYA SIMON, PT - 08/25/2018 16:46 EDT documented in this encounter Plan of Treatment Not on file documented as of this encounter Visit Diagnoses Not on filedocumented in this encounter
--- OUTSIDE RECORDS SUMMARY | 2024-11-29 09:50 | XMS_ITS | Encounter Summary ---
Author Organization [employer] ([place], [place], [place], [place]) Address [address] [place] [address] Care Team Providers Care Clerical Assigner Name Role Phone Unavailable Primary Care Provider Unavailabl e Encounter Details Date Type Department Care Team (Late st Contact Info) Description 08/26/2018 Transcribed Document [facility] [place] [facility] [place] [address] ProviderMariela MD [facility] [place] [address] Social History Tobacco Use Types [...] form. Electronically signed by Nikunj Cornejoh Conversion Grants And Contracts Assistant Cerner at 06/16/2022 8:10 PM CDT documented in this encounter Plan of Treatment Not on file documented as of this encounter Visit Diagnoses Not on filedocumented in this encounter
--- OUTSIDE RECORDS SUMMARY | 2024-11-29 09:50 | XMS_ITS | Encounter Summary ---
Author Organization [employer] ([place], [place], [place], [place]) Address [address] [place] [address] Care Team Providers Care Filbert Grower Name Role Phone Unavailable Primary Care Provider Unavailabl e Encounter Details Date Type Department Care Team (Late st Contact Info) Description 08/25/2018 Transcribed Document [facility] [place] [address] [place] [address] ProviderMariela MD [address] [place], [place] [id number] Social History Tobacco Use Types Packs/Day Years [...]
--- OUTSIDE RECORDS SUMMARY | 2024-11-29 09:50 | XMS_ITS | Encounter Summary ---
Author Organization [employer] ([place], [place], [place], [place]) Address [address] [place] [address] Care Team Providers Care Brain Wave Technician Name Role Phone Unavailable Primary Care Provider Unavailabl e Encounter Details Date Type Department Care Team (Late st Contact Info) Description 06/21/2019 Transcribed Document [facility] [place] Medicine [facility] [place] [address] ProviderMariela MD [address] [place] [address] Social History Tobacco Use Types Packs/Day [...] Source : Stated Height Entry Format : [place] Height, Feet : 4 ft(Converted to: 122 cm, 48 Inch) Height, Inches : 11 Inch(Converted to: 0 ft 11 Inch, 27.94 cm) Clinical Height : 149.86 cm Weight Source : Bed scale Weight Entry Format : [place] Clinical Dosing Weight : 91.82 kg Weight, Pounds : 202 lb Body Surface Area (BSA) : 1.85 m2 Body Mass Index : 40.9 kg/m2 (>HHI) [place] Body Weight : 43 kg THIERRY GOODRICH [...] THIERRY GOODRICH RN - 06/21/2019 11:52 EDT [place]bs Suicide Severity Rating Scale (C-SSRS) CSSRS Past [...] Any Spiritual/Cultural Needs or Requests : Yes Baptism Preference : U[place] THIERRY GOODRICH RN - 06/21/2019 10:27 EDT [...] rendition version of the form. Nazia Coma Nazia Best Motor Response : Obey commands Nazia Best Verbal Response : Oriented Nazia Eye Opening Response : Spontaneous [place] Coma Score : 15 THIERRY GOODRICH RN - 06/21/2019 10:27 EDT documented in this encounter Plan of Treatment Not on file documented as of this encounter Visit Diagnoses Not on filedocumented in this encounter
--- OUTSIDE RECORDS SUMMARY | 2024-11-29 09:50 | XMS_ITS | Encounter Summary ---
Author Organization [employer] ([place], [place], [place], [place]) Address [address] [place] [address] Care Team Providers Care Manager Deli Name Role Phone Unavailable Primary Care Provider Unavailabl e Encounter Details Date Type Department Care Team (Late st Contact Info) Description 06/21/2019 Transcribed Document [facility] [place] [address] ProviderMariela MD [address] [place] [address] Social History Tobacco Use Types Packs/Day [...] of the form. Electronically signed by Chantal, [facility] Conversion Needle Molder Cerner at 06/16/2022 8:29 PM CDT documented in this encounter Plan of Treatment Not on file documented as of this encounter Visit Diagnoses Not on filedocumented in this encounter
--- OUTSIDE RECORDS SUMMARY | 2024-11-29 09:50 | XMS_ITS | Encounter Summary ---
Author Organization [employer] ([place], [place], [place], [place]) Address [address] [place] [address] Care Team Providers Care Talent Acquisition Manager Name Role Phone Unavailable Primary Care Provider Unavailabl e Encounter Details Date Type Department Care Team (Late st Contact Info) Description 06/21/2019 Transcribed Document [facility] [place] [facility] [place] [address] ProviderMariela MD [address] [place] [address] Social History Tobacco Use Types Packs/Day [...]
--- OUTSIDE RECORDS SUMMARY | 2024-11-29 09:50 | XMS_ITS | Encounter Summary ---
Author Organization [employer] ([place], [place], [place], [place]) Address [address] [place] [address] Care Team Providers Care Tax Audit Manager Name Role Phone Unavailable Primary Care Provider Unavailabl e Encounter Details Date Type Department Care Team (Late st Contact Info) Description 06/21/2019 Transcribed Document [facility] [place] Medicine [facility] [place] [address] ProviderMariela MD [address] [place] [address] Social History Tobacco Use Types [...] Eufemia Dobbs/Sex: 1940 Female Med Rec #: [id number] Physician: DONNA DRIVER MD-INT Financial #: [id number] Pt. Type: I Room/Bed: [facility]/ Admit/Disch: 06/16/19 21:08:00 - Institution: [facility] OR PACU Case Times Entry 1 In PACU I 06/21/19 15:43:00 Ready for PACU 06/21/19 16:38:00 Discharge Discharge from PACU 06/21/19 16:38:00 I Last Modified By: OZZIE PARSON RN 06/21/19 16:38:34 Finalized By: OZZIE PARSON, RN Document Signatures Signed By: OZZIE PARSON RN 06/21/19 16:38 Electronically signed by Chantal [facility] Conversion Experimental Outboard Motors Mechanic Cerner at 06/16/2022 8:10 PM CDT documented in this encounter Plan of Treatment Not on file documented as of this encounter Visit Diagnoses Not on filedocumented in this encounter
--- OUTSIDE RECORDS SUMMARY | 2024-11-29 09:50 | XMS_ITS | Encounter Summary ---
Author Organization [employer] ([place], [place], [place], [place]) Address [address] [place] [address] Care Team Providers Care Cashier Self Service Gasoline Name Role Phone Unavailable Primary Care Provider Unavailabl e Encounter Details Date Type Department Care Team (Late st Contact Info) Description 08/25/2018 Transcribed Document [facility] [place] Family Medicine [facility] [place] [address] ProviderMariela MD [facility] [address] Social History Tobacco Use Types [...]
--- OUTSIDE RECORDS SUMMARY | 2024-11-29 09:50 | XMS_ITS | Encounter Summary ---
Author Organization [employer] ([place], [place], [place], [place]) Address [address] [place] [address] Care Team Providers Care Lens Dotter Name Role Phone Unavailable Primary Care Provider Unavailabl e Encounter Details Date Type Department Care Team (Late st Contact Info) Description 06/21/2019 Transcribed Document [facility] [place] [address] ProviderMariela MD [address] [place] [address] Social History Tobacco Use Types Packs/Day Years [...] : Nurse Ministry Provided to : Patient Restoration Preference : [facility] PARTHA KUMAR Chaplain-Non Cert - 06/21/2019 11:17 EDT Spiritual Assessment Spiritual Assessment Comment/Summary Points : Sy is a 79-year-old patient who requests prayer prior to surgery. Spirital Assessment Comment/Summary Report : SPIRITUAL ASSESSMENT COMMENT/SUMMARY No qualifying data available. PARTHA KUMAR Chaplain-Non Cert - 06/21/2019 11:17 EDT Interventions Emotional Support : Emotional, Empathic/Engaged listening, Feelings expressed Spiritual and Restoration : Prayer shared PARTHA KUMAR Chaplain-Celine Cert - 06/21/2019 11:17 EDT Electronically signed by Chantal, [facility] Conversion Process Development Chemist Cerner at 06/16/2022 8:30 PM CDT documented in this encounter Plan of Treatment Not on file documented as of this encounter Visit Diagnoses Not on filedocumented in this encounter
--- OUTSIDE RECORDS SUMMARY | 2024-11-29 09:50 | XMS_ITS | Encounter Summary ---
Author Organization [employer] ([place], [place], [place], [place]) Address [address] [place] [address] Care Team Providers Care Denture Processor Name Role Phone Unavailable Primary Care Provider Unavailabl e Encounter Details Date Type Department Care Team (Late st Contact Info) Description 06/21/2019 Transcribed Document [facility] [place] Medicine [facility] [place] [address] ProviderMariela MD [address] [place] [address] Social History Tobacco Use Types Packs/Day Years [...] by Chantal [facility] Conversion Stuffed Casing Tier Cerner at 06/16/2022 8:21 PM CDT documented in this encounter Plan of Treatment Not on file documented as of this encounter Visit Diagnoses Not on filedocumented in this encounter
--- OUTSIDE RECORDS SUMMARY | 2024-11-29 09:50 | XMS_ITS | Encounter Summary ---
Author Organization [employer] ([place], [place], [place], [place]) Address [address] [place] [address] Care Team Providers Care Sql Ssis Developer Name Role Phone Unavailable Primary Care Provider Unavailabl e Encounter Details Date Type Department Care Team (Late st Contact Info) Description 06/21/2019 Transcribed Document [facility] [place] Medicine [facility] [place] [address] ProviderMariela MD [address] [place] [id number] Social History Tobacco Use Types Packs/Day Years [...] tendon repair. ANESTHESIA: Femoral nerve block, sciatic. BOILERS INSPECTOR: Brady. ESTIMATED BLOOD LOSS: Minimal. TOURNIQUET TIME: [...] harder than normal. Multiple cultures were sent. /[id number] Riaz Saenz MD CC/AQ / CC / MODL /[id number] Electronically signed by Chantal, [facility] Conversion Sports Lawyer Cerner at 06/16/2022 8:21 PM CDT documented in this encounter Plan of Treatment Not on file documented as of this encounter Visit Diagnoses Not on filedocumented in this encounter
--- OUTSIDE RECORDS SUMMARY | 2024-11-29 09:50 | XMS_ITS | Encounter Summary ---
Author Organization [employer] ([place], [place], [place], [place]) Address [address] [place] [address] Care Team Providers Care Staff Command And Control Officer Name Role Phone Unavailable Primary Care Provider Unavailabl e Encounter Details Date Type Department Care Team (Late st Contact Info) Description 06/21/2019 Transcribed Document [facility] [place] Family [place] [facility] [address] ProviderMariela MD [address] [place] [address] Social History Tobacco Use Types Packs/Day Years [...] Nemo Macario, RN - 06/23/2019 4:15 EDT documented in this encounter Plan of Treatment Not on file documented as of this encounter Visit Diagnoses Not on filedocumented in this encounter
--- OUTSIDE RECORDS SUMMARY | 2024-11-29 09:50 | XMS_ITS | Encounter Summary ---
Author Organization [employer] ([place], [place], [place], [place]) Address [address] [place] [address] Care Team Providers Care Accounting Specialist Name Role Phone Unavailable Primary Care Provider Unavailabl e Encounter Details Date Type Department Care Team (Late st Contact Info) Description 08/25/2018 Transcribed Document [facility] [place] [address] ProviderMariela MD [address] [place] [address] Social History Tobacco Use Types Packs/Day [...] 08/25/2018 10:33 EDT by MARY MCGRAW Care Management-College Archivist Care Management Progress Note Discharge Arrangements : [...] Clinical Condition of Patient MARY MCGRAW, Care Management-College Archivist - 08/25/2018 10:33 EDT Narrative Progress Note Narrative Progress Note : INSURANCE AUTHORIZATION WILL NEED TO BE RE INITIATED IT HAS SINCE D/C WAS HELD DUE TO PTS CONDITION ANTICIPATE D/C ON WEDNESDAY PENDING AUTHORIZATION AND MEDICAL STABILITY MARY MCGRAW, Care Management-College Archivist - 08/26/2018 16:54 EDT documented in this encounter Plan of Treatment Not on file documented as of this encounter Visit Diagnoses Not on filedocumented in this encounter
--- OUTSIDE RECORDS SUMMARY | 2024-11-29 09:50 | XMS_ITS | Encounter Summary ---
Author Organization [employer] ([place], [place], [place], [place]) Address [address] [place] [address] Care Team Providers Care Stained Glass Window Designer Name Role Phone Unavailable Primary Care Provider Unavailabl e Encounter Details Date Type Department Care Team (Late st Contact Info) Description 06/21/2019 Transcribed Document [facility] [place] [facility] [place] [address] ProviderMariela MD [address] [place] [id number] Social History Tobacco Use Types Packs/Day Years [...] to a hinged total knee replacement at [facility]. The patient then had persistent pain because of femoral implant loosening and was sent to mo. The patient then underwent successful revision left [...] to make sure no infection that knee. /[id number] Riaz Saenz MD CC/AQ / CC / MODL /[id number] Electronically signed by Chantal [facility] Conversion Manager Fiber Cerner at 06/16/2022 8:10 PM CDT documented in this encounter Plan of Treatment Not on file documented as of this encounter Visit Diagnoses Not on filedocumented in this encounter
--- OUTSIDE RECORDS SUMMARY | 2024-11-29 09:50 | XMS_ITS | Encounter Summary ---
Author Organization [employer] ([place], [place], [place], [place]) Address [address] [place] [address] Care Team Providers Care Oil Lease Buyer Name Role Phone Unavailable Primary Care Provider Unavailabl e Encounter Details Date Type Department Care Team (Late st Contact Info) Description 06/21/2019 Transcribed Document [facility] [place] [facility] [place] [address] ProviderMariela MD [address] [place] [address] Social History Tobacco Use Types Packs/Day [...] On: 06/21/2019 16:57 EDT by MIKE FRIEDMAN RN-Rug Setter AxminsterBlast Furnace Keeper Progress Note Discharge Arrangements : Patient Post-Acute [...] Pt/Fam/Support Person : Other: N/A MIKE FRIEDMAN RN-Rug Setter [place] - 06/21/2019 16:57 EDT Narrative Progress Note Narrative Progress Note : Sent referral to LTACH through [facility]..........faby Historical Progress Note : Was planning for AKA, now patient will undergo a total joint revision with I&D. Will continue to follow.............MIKE Adam RN-Rug Setter [place] - 06/21/19 16:36:10 PICC line placed, Per LID, plan for senior care IV abx. Surgery scheduled for today................MIKE Adam RN-Rug Setter [place] - 06/21/19 10:06:05 No MDR this AM with provider. Patient with low-grade fever this AM and throughout the night. LAKA was rescheduled for 06/20 for this reason. CM will continue to follow. Halima Tripathi RN-CLINICAL STAFF ANESTHESIOLOGIST - 06/20/19 11:50:51 Patient becoming more agitated and confused, refusing to wear oxygen. Patient now on CPAP, WBC increased, BC x2 positive for group b Strep. Dr Saenz to perform AKA tomorrow morning. Will continue to follow..............MIKE Adam RN-Rug Setter [place] - 06/19/19 11:35:19 MIKE FRIEDMAN RN-Rug Setter [place] - 06/21/2019 16:57 EDT documented in this encounter Plan of Treatment Not on file documented as of this encounter Visit Diagnoses Not on filedocumented in this encounter
--- OUTSIDE RECORDS SUMMARY | 2024-11-29 09:50 | XMS_ITS | Encounter Summary ---
Author Organization [employer] ([place], [place], [place], [place]) Address [address] [place] [address] Care Team Providers Care Lining Cutter Name Role Phone Unavailable Primary Care Provider Unavailabl e Encounter Details Date Type Department Care Team (Late st Contact Info) Description 08/25/2018 Transcribed Document [facility] [place] [address] ProviderMariela MD [address] [place] [address] Social History Tobacco Use Types [...]
--- OUTSIDE RECORDS SUMMARY | 2024-11-29 09:50 | XMS_ITS | Encounter Summary ---
Author Organization [employer] ([place], [place], [place], [place]) Address [address] [place] [address] Care Team Providers Care Shipping And Receiving Weigher Name Role Phone Unavailable Primary Care Provider Unavailabl e Encounter Details Date Type Department Care Team (Late st Contact Info) Description 08/25/2018 Transcribed Document [facility] [place] [facility] [place] [address] ProviderMariela MD [facility] [place] [address] Social History Tobacco Use [...]
--- OUTSIDE RECORDS SUMMARY | 2024-11-29 09:50 | XMS_ITS | Encounter Summary ---
Author Organization [employer] ([place], [place], [place], [place]) Address [address] [place] [address] Care Team Providers Care Manager Training Name Role Phone Unavailable Primary Care Provider Unavailabl e Encounter Details Date Type Department Care Team (Late st Contact Info) Description 08/25/[address] [facility] [place] Family Medicine [facility] [place] [address] ProviderMariela MD [address] [place] [address] Social History Tobacco Use Types Packs/Day Years [...] EDT Electronically signed by Maureen Cornejo Conversion Distribution Operations Manager Cerner at 06/16/2022 8:27 PM CDT documented in this encounter Plan of Treatment Not on file documented as of this encounter Visit Diagnoses Not on filedocumented in this encounter
--- OUTSIDE RECORDS SUMMARY | 2024-11-29 09:50 | XMS_ITS | Encounter Summary ---
Author Organization [employer] ([place], [place], [place], [place]) Address [address] [place] [address] Care Team Providers Care Clinical Specialist Name Role Phone Unavailable Primary Care Provider Unavailabl e Encounter Details Date Type Department Care Team (Late st Contact Info) Description 06/21/2019 Transcribed Document [facility] [place] [facility] [place] [address] ProviderMariela MD [address] [place] [address] Social History Tobacco Use Types Packs/Day Years [...]
--- OUTSIDE RECORDS SUMMARY | 2024-11-29 09:50 | XMS_ITS | Encounter Summary ---
Author Organization [employer] ([place], [place], [place], [place]) Address [address] [place] [address] Care Team Providers Care Welder Repair Name Role Phone Unavailable Primary Care Provider Unavailabl e Encounter Details Date Type Department Care Team (Late st Contact Info) Description 06/21/2019 Transcribed Document [facility] [place] [address] ProviderMariela MD [address] [place] [address] Social History Tobacco Use Types Packs/Day [...] On: 06/21/2019 10:05 EDT by MIKE FRIEDMAN RN-Cotton FeederTherapist Asst Progress Note Discharge Arrangements : Patient Post-Acute [...] Pt/Fam/Support Person : Other: N/A MIKE FRIEDMAN RN-Cotton Feeder - 06/21/2019 10:05 EDT Narrative Progress Note Narrative Progress Note : PICC line placed, Per LID, plan for buttermaker IV abx. Surgery scheduled for today................faby Historical Progress Note : No MDR this AM with provider. Patient with low-grade fever this AM and throughout the night. COTY was rescheduled for 06/20 for this reason. CM will continue to follow. Halima Tripathi, EDDIE-FIELD AGRONOMIST - 06/20/19 11:50:51 Patient becoming more agitated and confused, refusing to wear oxygen. Patient now on CPAP, WBC increased, BC x2 positive for group b Strep. Dr Saenz to perform AKA tomorrow morning. Will continue to follow..............MIKE Adam RN-Cotton Feeder - 06/19/19 11:35:19 MIKE FRIEDMAN RN-Cotton Feeder - 06/21/2019 10:05 EDT documented in this encounter Plan of Treatment Not on file documented as of this encounter Visit Diagnoses Not on filedocumented in this encounter
--- OUTSIDE RECORDS SUMMARY | 2024-11-29 09:50 | XMS_ITS | Encounter Summary ---
Author Organization [employer] ([place], [place], [place], [place]) Address [address] [place] [address] Care Team Providers Care Hot Mix Operator Name Role Phone Unavailable Primary Care Provider Unavailabl e Encounter Details Date Type Department Care Team (Late st Contact Info) Description 06/21/2019 Transcribed Document [facility] [place] Family Medicine [facility] [place] [address] ProviderMariela MD [address] [place] [address] Social History Tobacco Use Types Packs/Day Years [...] 06/21/2019 11:29 EDT Electronically signed by Chantal [facility] Conversion Business Process Associate Cerner at 06/16/2022 8:16 PM CDT documented in this encounter Plan of Treatment Not on file documented as of this encounter Visit Diagnoses Not on filedocumented in this encounter
--- OUTSIDE RECORDS SUMMARY | 2024-11-29 09:50 | XMS_ITS | Encounter Summary ---
Author Organization [employer] ([place], [place], [place], [place]) Address [address] [place] [address] Care Team Providers Care Event Coordinator Marketing And Sales Name Role Phone Unavailable Primary Care Provider Unavailabl e Encounter Details Date Type Department Care Team (Late st Contact Info) Description 06/22/2019 Transcribed Document [facility] [place] [facility] [place] [address] ProviderMariela MD [address] [place] [address] Social History Tobacco Use Types Packs/Day Years [...]
--- OUTSIDE RECORDS SUMMARY | 2024-11-29 09:50 | XMS_ITS | Encounter Summary ---
Author Organization [employer] ([place], [place], [place], [place]) Address [address] [place] [address] Care Team Providers Care Toe Lining Closer Name Role Phone Unavailable Primary Care Provider Unavailabl e Encounter Details Date Type Department Care Team (Late st Contact Info) Description 08/25/2018 Transcribed Document [facility] [place] [facility] [place] [address] ProviderMariela MD [facility] [place] [address] Social History Tobacco Use Types [...] form. Electronically signed by Maureen Cornejo Conversion Traffic Operations Engineer Cerner at 06/16/2022 8:09 PM CDT documented in this encounter Plan of Treatment Not on file documented as of this encounter Visit Diagnoses Not on filedocumented in this encounter
--- OUTSIDE RECORDS SUMMARY | 2024-11-29 09:50 | XMS_ITS | Encounter Summary ---
Author Organization [employer] ([place], [place], [place], [place]) Address [address] [place] [address] Care Team Providers Care Budget Clerk Name Role Phone Unavailable Primary Care Provider Unavailabl e Encounter Details Date Type Department Care Team (Late st Contact Info) Description 08/25/2018 Transcribed Document [facility] [place] Family Medicine formerly [facility] [place] [address] ProviderMariela MD [address] [place] [address] Social History Tobacco Use Types Packs/Day Years [...] Historical ProviderMD - 08/25/2018 2:00 AM CDT Ict Help Desk Officer Details Entered On: 08/25/2018 1:31 EDT Performed [...]
--- OUTSIDE RECORDS SUMMARY | 2024-11-29 09:50 | XMS_ITS | Encounter Summary ---
Author Organization [employer] ([place], [place], [place], [place]) Address [address] [place] [address] Care Team Providers Care Bulb Packer Name Role Phone Unavailable Primary Care Provider Unavailabl e Encounter Details Date Type Department Care Team (Late st Contact Info) Description 06/21/2019 Transcribed Document [facility] [place] [facility] [place] [address] ProviderMariela MD [address] [place] [id number] Social History Tobacco Use Types Packs/Day Years [...] On: 06/21/2019 11:30 EDT by THIERRY GOODRICH, EDDIE Peripheral Nerve Block Site Marked and Visible [...] EDT Electronically signed by Maureen Cornejo Conversion Electronic Typesetting Machine Operator Cerner at 06/16/2022 8:08 PM CDT documented in this encounter Plan of Treatment Not on file documented as of this encounter Visit Diagnoses Not on filedocumented in this encounter
--- OUTSIDE RECORDS SUMMARY | 2024-11-29 09:50 | XMS_ITS | Encounter Summary ---
Author Organization [facility] Address [address] [place] [address] Care Team Providers Care Production Line Name Role Phone Gracia Cleaning Dr Primary Care Provider Unavailabl e Encounter Details Date Type Department Care Team (Latest Contact Info) Description 11/15/2024 Travel Social History Tobacco Use Types Packs/Day [...] Description 11/12/2025 11:15 AM EDT Office Visit [facility] - Cardiovascular Medicine [address] [facility] [address] [place] [address] Deepa Lama MD [address] [facility] [address] [place] [address] documented as of this encounter Visit Diagnoses Not on filedocumented in this encounter Care Teams Production Line Relationship Specialty Start Date End Date Gracia Cleaning Dr. PCP - General 09/18/24 documented as of this encounter
--- OUTSIDE RECORDS SUMMARY | 2024-11-29 09:50 | XMS_ITS | Encounter Summary ---
Author Organization [employer] ([place], [place], [place], [place]) Address [address] [place] [address] Care Team Providers Care Computer Science Instructor Name Role Phone Unavailable Primary Care Provider Unavailabl e Encounter Details Date Type Department Care Team (Late st Contact Info) Description 06/21/2019 Transcribed Document [facility] [place] [facility] [place] [address] ProviderMariela MD [address] [place] [address] Social History Tobacco Use Types Packs/Day [...] 0.9% 50 mL 2 Gram, IV Piggyback, [id number] cyanocobalamin 1,000 mcg tab 5,000 mcg 5 [...] Push, Q5Min fluticasone 0.05% nasal spray 2 [place], Nostrils Both, BID gabapentin 300 mg cap [...] % LOW ALYC # 1 K/uL NA Granite Percent Man 7 % HI RBC Morphology [...]
--- OUTSIDE RECORDS SUMMARY | 2024-11-29 09:50 | XMS_ITS | Encounter Summary ---
Author Organization [employer] ([place], [place], [place], [place]) Address [address] [place] [address] Care Team Providers Care Carpenter'S Helper Name Role Phone Unavailable Primary Care Provider Unavailabl e Encounter Details Date Type Department Care Team (Late st Contact Info) Description 08/26/2018 Transcribed Document [facility] [place] [facility] [place] [address] ProviderMariela MD [address] [place] [address] Social History Tobacco Use Types Packs/Day Years [...] Historical ProviderMD - 08/26/2018 2:00 AM CDT Student Success Advisor Details Entered On: 08/26/2018 0:26 EDT Performed [...]
--- OUTSIDE RECORDS SUMMARY | 2024-11-29 09:50 | XMS_ITS | Encounter Summary ---
Author Organization [employer] ([place], [place], [place], [place]) Address [address] [place] [address] Care Team Providers Care Metal Die Finisher Name Role Phone Unavailable Primary Care Provider Unavailabl e Encounter Details Date Type Department Care Team (Late st Contact Info) Description 06/21/2019 Transcribed Document [facility] [place] [facility] [place] [address] ProviderMariela MD [address] [place] [address] Social History Tobacco Use Types Packs/Day Years [...] FELTON RUSH OTR/L - 06/21/2019 13:10 EDT Electronically signed by Nikunj Cornejo Conversion Workers Compensation Claims Adjuster Cerner at 06/16/2022 8:10 PM CDT documented in this encounter Plan of Treatment Not on file documented as of this encounter Visit Diagnoses Not on filedocumented in this encounter
--- OUTSIDE RECORDS SUMMARY | 2024-11-29 09:50 | XMS_ITS | Encounter Summary ---
Author Organization [employer] ([place], [place], [place], [place]) Address [address] [place] [address] Care Team Providers Care Employment Security Officer Name Role Phone Unavailable Primary Care Provider Unavailabl e Encounter Details Date Type Department Care Team (Late st Contact Info) Description 06/21/2019 Transcribed Document [facility] [place] [facility] [place] [address] ProviderMariela MD [facility] [place] [address] Social History Tobacco Use Types [...] Mariela ProviderMD - 06/21/2019 12:41 PM CDT [facility] [place] IntraOp Summary Primary Physician: NIMO EPPS MD-ORT Finalized Date/Time: 06/21/19 15:40:53 Pt. Name: SOFIA BARLOW S /Sex: 1940 Female Med Rec #: [id number] Physician: DONNA DRIVER MD-INT Financial #: [id number] Pt. Type: I Room/Bed: [facility]/ Admit/Disch: 06/16/19 21:08:00 - Institution: [facility] IntraOp Case Attendance Entry 1 Entry 2 Entry 3 Case Attendee NIMO EPPS Holliday, Stewart R, RN YUNIOR DUBOSE MD-ORT Role Performed Surgeon/Proceduralist, Balloon Sander, First Scrub, Second First Time In 06/21/19 [...] Jamie, VERONICA MARTINEZ CRNA Role Performed Anesthesiologist Balloon Sander, Second LEARNING SUPPORT AIDE/Nurse Pilot Instructor Time In 06/21/19 11:50:00 06/21/19 11:50:00 06/21/19 [...] Nelson, OMAR Wilkinson, ESTEBAN Role Performed Vendor Balloon Sander, Second Fur Sorter, First Time In 06/21/19 11:50:00 06/21/19 11:50:00 [...] Case Attendee SOLOMON MCCRACKEN PA-C Combs, Leslie, Medical Assistant Prn Role Performed Physician insurance sales assistant Scrub, First Time In 06/21/19 11:50:00 06/21/19 11:50:00 Time Out 06/21/19 15:40:00 06/21/19 15:40:00 Procedure Patella Tendon Patella Tendon Repair(Left) Repair(Left) Other Attendee Superficial Wound Closed By: Last Modified By: Luiza Nelson, Luiza Pablo Rn 06/21/19 15:40:48 06/21/19 15:40:48 [facility] IntraOp Case Attendance Audit 06/21/19 15:40:48 Field Spec: [id number] Modifier: [id number] 1 <*> Procedure Knee Total Joint Revision, [...] <*> Procedure Patella Tendon Repair(Left) 06/21/19 15:26:08 Field Spec: [id number] Modifier: [id number] 1 <+> Time Out 1 <*> Procedure Knee Total Joint Revision, Wound Incision And Drainage Extremity(Left), Patella Tendon Repair(Left) 7 <+> Time Out 7 <*> Procedure Knee Total Joint Revision, Wound Incision And Drainage Extremity(Left), Patella Tendon Repair(Left) 06/21/19 15:25:31 Field Spec: [id number] Modifier: [id number] 1 <*> Procedure Knee Total Joint Revision, [...] 10 Procedure <+> 11 Procedure 06/21/19 14:23:50 Field Spec: [id number] Modifier: [id number] 1 <*> Procedure Knee Total Joint Revision, [...] In <+> 11 Time In 06/21/19 13:23:46 Field Spec: [id number] Modifier: [id number] 1 <*> Case Attendee NIMO EPPS MD-ORT 1 <*> Role Performed Surgeon/Proceduralist, First 1 <*> Time In 06/21/19 11:50:00 1 <*> Procedure Knee Total Joint Revision, Wound Incision And Drainage Extremity(Left) 2 <*> Case Attendee Vick Schroeder, RN 2 <*> Role Performed Balloon Sander, First 2 <*> Time In 06/21/19 11:50:00 [...] Claus Almanzar, RN 5 <*> Role Performed Balloon Sander, Second 5 <*> Time In 06/21/19 11:50:00 5 <*> Procedure Knee Total Joint Revision, Wound Incision And Drainage Extremity(Left) 6 <*> Case Attendee VERONICA AYALA, LEARNING SUPPORT AIDE 6 <*> Role Performed LEARNING SUPPORT AIDE/Nurse Pilot Instructor 6 <*> Time In 06/21/19 12:31:00 6 [...] Luiza Nelson, Eddie 8 <*> Role Performed Balloon Sander, Second 8 <*> Time In 06/21/19 11:50:00 [...] Attendee OTHER, ATTENDEE <-> 10 Role Performed Fur Sorter, First <-> 10 Time In 06/21/19 11:50:00 <-> 10 Other Attendee Prince Cornejo 06/21/19 13:05:25 Field Spec: [id number] Modifier: [id number] 1 <*> Procedure Knee Total Joint Revision, [...] Extremity(Left) <+> 10 Time In 06/21/19 12:59:17 Field Spec: [id number] Modifier: [id number] <+> 8 Case Attendee <+> 8 Role Performed <+> 8 Procedure <+> 9 Case Attendee <+> 9 Role Performed <+> 9 Procedure <+> 10 Case Attendee <+> 10 Role Performed <+> 10 Other Attendee 06/21/19 12:53:44 Field Spec: [id number] Modifier: [id number] 1 <*> Procedure Knee Total Joint Revision, [...] Wound Incision And Drainage Extremity(Left) 06/21/19 12:43:54 Field Spec: [id number] Modifier: [id number] <+> 7 Case Attendee <+> 7 Role Performed <+> 7 Procedure <+> 7 Other Attendee 06/21/19 12:36:50 Field Spec: [id number] Modifier: [id number] 1 <*> Procedure Knee Total Joint Revision, [...] Wound Incision And Drainage Extremity(Left) 06/21/19 12:31:59 Field Spec: [id number] Modifier: [id number] 4 <+> Time Out 4 <*> Procedure Knee Total Joint Revision, Wound Incision And Drainage Extremity(Left) <+> 5 Case Attendee <+> 5 Role Performed <+> 5 Procedure <+> 6 Case Attendee <+> 6 Role Performed <+> 6 Time In <+> 6 Procedure 06/21/19 12:23:34 Field Spec: [id number] Modifier: [id number] 1 <*> Procedure Knee Total Joint Revision, [...] [facility] IntraOp Case Times Audit 06/21/19 15:40:40 Field Spec: [id number] Modifier: [id number] <+> 1 Out Room Time <+> 1 Stop Time 06/21/19 15:39:30 Field Spec: [id number] Modifier: [id number] <+> 1 Stop Time 06/21/19 12:52:18 Field Spec: [id number] Modifier: [id number] <+> 1 Start Time [facility] IntraOp Cautery [...] 13:31:07 [facility] IntraOp Cautery Audit 06/21/19 13:31:07 Field Spec: [id number] Modifier: [id number] 1 <*> Cautery Type BiPolar ESU 1 [...] [facility] IntraOp Counts Verification Audit 06/21/19 15:25:34 Field Spec: [id number] Modifier: [id number] 1 <*> Procedure Knee Total Joint Revision, Wound Incision And Drainage Extremity(Left) 2 <*> Procedure Knee Total Joint Revision, Wound Incision And Drainage Extremity(Left) 06/21/19 15:01:44 Field Spec: [id number] Modifier: [id number] <+> 2 Procedure <+> 2 Count Type <+> 2 Counts Verification Sequence <+> 2 Count Results <+> 2 Count Performed By (Scrub) <+> 2 Count Performed By (RN) 06/21/19 12:54:50 Field Spec: [id number] Modifier: [id number] 1 <*> Procedure Knee Total Joint Revision, Wound Incision And Drainage Extremity(Left) 1 <*> Count Type Sponge, Sharps 1 <*> Counts Verification Sequence Baseline/pre-procedure 1 <*> Count Results Correct, surgeon notified 1 <+> Count Performed By (Scrub) 1 <+> Count Performed By (RN) 06/21/19 12:51:36 Field Spec: [id number] Modifier: [id number] 1 <*> Procedure Knee Total Joint Revision, [...] [facility] IntraOp Counts Final Audit 06/21/19 15:25:34 Field Spec: [id number] Modifier: [id number] 1 <*> Procedure Knee Total Joint Revision, Wound Incision And Drainage Extremity(Left) [facility] IntraOp Cultures and Spec Summary Entry 1 Cultrures and Specimens Specimen Ordered: Yes Test(s) Routine/Path-Lab, Requested/Final Culture(s)/Microbiology Disposition Last Modified By: Luiza Nelson Rn 06/21/19 13:20:20 S[facility] IntraOp Cultures and Spec Summary Audit 06/21/19 13:20:20 Field Spec: [id number] Modifier: [id number] 1 <*> Test(s) Requested/Final Disposition Routine/Path-Lab SJE [...] IntraOp Departure from OR Audit 06/21/19 13:31:50 Field Spec: [id number] Modifier: [id number] 1 <+> Integumentary Assessment WDL 1 <*> Patient Transport Accompanied by Vick Schroeder, RN 1 <+> Handoff Method S[facility] IntraOp Drains and Tubes Entry 1 Device Type Hemovac Size MED. Device Location LEFT KNEE Method of Drainage Compression Comment HEMOVAC X 2 Last Modified By: Luiza Nelson Rn 06/21/19 15:01:21 S[facility] IntraOp Drains and Tubes Audit 06/21/19 15:01:21 Field Spec: [id number] Modifier: [id number] <+> 1 Comment 06/21/19 13:32:08 Field Spec: [id number] Modifier: [id number] 1 <*> Device Location OPSITE SJE IntraOp Dressing and Packing Entry 1 Type Dressing Location LEFT KNEE Wound Dressing Item 4x4's, Sanchez, Webril, Xeroform Supplemental Cold pack Applications Last Modified By: Luiza Nelson Rn 06/21/19 12:23:52 SJE IntraOp Dressing and Packing Audit 06/21/19 13:32:28 Field Spec: [id number] Modifier: [id number] 1 <*> Location OPSITE SJE IntraOp Explant Log Entry 1 Explant Log Description POLY AND HARDWARE Explant Site LEFT KNEE Removal Reason Infection Disposition Sent to pathology Last Modified By: Luiza Nelson Rn 06/21/19 13:33:14 SJE IntraOp Explant Log Audit 06/21/19 15:19:08 Field Spec: [id number] Modifier: [id number] 1 <*> Description PATELLA POLY SJE IntraOp [...] IntraOp Fire Risk Assessment Audit 06/21/19 13:33:24 Field Spec: [id number] Modifier: [id number] 1 <*> Fire Risk Assessment Verified By Vick Schroeder, RN E IntraOp General Case Quilt Sewer 1 Case Information OR OR 02 SJE Case Level 1 Room Verified Yes Wound Class IV - Dirty-Infected Specialty SN Orthopedic Anesthesia Type General ASA Class 4 Diagnosis Preop Diagnosis LEFT KNEE INFECTION Postop Same As Preop No Postop Diagnosis DICTATED BY MD Last Modified By: Luiza Nelson Rn 06/21/19 12:51:29 S[facility] IntraOp General Case Data Audit 06/21/19 13:34:03 Field Spec: [id number] Modifier: [id number] 1 <*> OR OR 09 SJE 1 <+> Postop Same As Preop 1 <*> Preop Diagnosis left knee infection 1 <*> Postop Diagnosis refer to MD notes 06/21/19 12:55:46 Field Spec: [id number] Modifier: [id number] <+> 1 Preop Diagnosis 06/21/19 12:51:29 Field Spec: [id number] Modifier: [id number] <+> 1 ASA Class <+> 1 Anesthesia Type <+> 1 Postop Diagnosis <+> 1 Room Verified SJE IntraOp Implant Log Entry 1 Entry 2 Entry 3 Type Implant (Synthetic) Implant (Synthetic) Implant (Synthetic) Implant Log Implant Type Hardware Hardware Hardware Tissue Implant Type Implant INSRT FEM XT SZ [id number] KT SERVICE SEG FEM IMP SEG ARTC SURF B Identification HINGE [id number] Description Implant Quantity 1 1 1 Implant Site LEFT KNEE LEFT KNEE LEFT KNEE Implant Identification Model Number Implant Identification Serial Number Implant [id number] Identification Lot Number Implant Jacquie:Jacquie Us Jacquie:Jacquie Us Jacquie:Jacquie Us Identification [employer] Representatives Name: Implant [id number] Identification Catalog Number Implant Size Implant Has an Yes Yes Yes Expiration Date Implant Expiration 06/29/27 11/28/24 02/28/27 Date Wasted Radioactive Material Time Implanted Tissue Implant Continue for Tissue Implant Documentation Tissue Identification Number Graft Prep Per [employer] Representatives Instructions: Tissue Preparation Method: Reconstitution Solution: Reconstitution Solution Lot Number Reconstitution Solution Expiration Date: Thawing Solution Thawing Solution Lot Number Thawing Solution Expiration Date Preparation Materials, Other Preparation Materials, Other Lot Number Preparation Materials, Other Expiration Date Tissue Prepared/Processed By [employer] Representatives Paperwork Completed Implant Type Comment Last Modified By: Luiza Nelson Rn Maxwell, Kristi, Rn Maxwell, Kristi, Rn 06/21/19 14:40:06 06/21/19 14:40:06 06/21/19 14:40:06 Entry 4 Type Implant (Synthetic) Implant Log Implant Type Hardware Tissue Implant Type Implant COMP FEM XT DIS SZ B Identification [id number] Description Implant Quantity 1 Implant Site LEFT KNEE Implant Identification Model Number Implant Identification Serial Number Implant [id number] Identification Lot Number Implant Jacquie:Jacquie Us Identification [employer] Representatives Name: Implant [id number] Identification Catalog Number Implant Size Implant Has an Yes Expiration Date Implant Expiration 01/31/30 Date Wasted Radioactive Material Time Implanted Tissue Implant Continue for Tissue Implant Documentation Tissue Identification Number Graft Prep Per [employer] Representatives Instructions: Tissue Preparation Method: Reconstitution Solution: Reconstitution Solution Lot Number Reconstitution Solution Expiration Date: Thawing Solution Thawing Solution Lot Number Thawing Solution Expiration Date Preparation Materials, Other Preparation Materials, Other Lot Number Preparation Materials, Other Expiration Date Tissue Prepared/Processed By [employer] Representatives Paperwork Completed Implant Type Comment Last Modified [...] SJE IntraOp Intraoperative Assessment Audit 06/21/19 13:34:44 Field Spec: [id number] Modifier: [id number] 1 <*> Level of Consciousness (WDL = [...] SJE IntraOp Intraoperative Equipment Audit 06/21/19 13:51:08 Field Spec: [id number] Modifier: [id number] <+> 1 Blood Pressure Location <+> 1 Pulse Oximeter Probe Site <+> 1 Antiembolic Device Location <+> 1 Blood Pressure Source SJE IntraOp Medication Admin Entry 1 Entry 2 Entry 3 Medication/Irrigant TRANEXAMIC ACID ANESTHETIC vancomycin 1Gm vial - 1000MG/10 ML MAHENDRA-EPPS [id number] Combo Med List Time Administered Route of [...] SJE IntraOp Patient Positioning Audit 06/21/19 13:51:47 Field Spec: [id number] Modifier: [id number] 1 <*> Procedure Knee Total Joint Revision [...] Measures Yes Taken Last Modified By: Luiza Nelsno Rn 06/21/19 12:23:21 SJE IntraOp Sign In Audit 06/21/19 13:51:56 Field Spec: [id number] Modifier: [id number] <+> 1 Allergies SJE Intra Op Sign [...] Intra Op Sign Out Audit 06/21/19 15:40:46 Field Spec: [id number] Modifier: [id number] <+> 1 RN Sign Out Signature Date/Time [...] SJE IntraOp Skin Prep Audit 06/21/19 14:22:51 Field Spec: [id number] Modifier: [id number] 1 <*> Prep Area OPSITE 1 <*> [...] SJE IntraOp Surgical Procedures Audit 06/21/19 15:39:32 Field Spec: [id number] Modifier: [id number] <+> 1 Stop <+> 2 Stop <+> 3 Stop 06/21/19 15:25:19 Field Spec: [id number] Modifier: [id number] 1 <*> Procedure Knee Total Joint Revision [...] Class <+> 3 Anesthesia Type 06/21/19 14:43:08 Field Spec: [id number] Modifier: [id number] 1 <*> Procedure Knee Total Joint Revision [...] Information identity, Correct side Electronically signed by [facility] Conversion Cane Furniture Maker Cerner at 06/16/2022 8:17 PM CDT documented in this encounter Plan of Treatment Not on file documented as of this encounter Visit Diagnoses Not on filedocumented in this encounter
[2024-11-29 09:51] LABS: Hematocrit 30.0 % (37.0-47.0); Hemoglobin 9.5 g/dL (12.2-16.2); Immature Granulocytes % 0.4 %; Mean Corpuscular HGB Conc 31.7 g/dL (31.8-35.4); Mean Corpuscular Hemoglobin 31.1 pg (27.0-31.2); Mean Corpuscular Volume 98.4 fl (81-99); Nucleated Red Blood Cells % 0 %; Platelet Count 383 K/mm3 (142-424); Red Blood Count 3.05 M/mm3 (4.20-5.40); Red Cell Distribution Width-SD 46.8 fL; White Blood Count 8.2 K/mm3 (4.8-10.8)
[2024-11-29 11:00] LABS: Alanine Aminotransferase 13 U/L (12-78); Albumin Level 3.2 g/dl (3.5-5.0); Albumin/Globulin Ratio 1.4 (1.1-1.8); Alkaline Phosphatase 58 U/L (38-126); Anion Gap 12.7 mEq/L (5-15); Aspartate Amino Transferase 26 U/L (14-36); Bilirubin,Total 0.4 mg/dl (0.2-1.3); Blood Urea Nitrogen 39 mg/dl (7-17); Calcium 8.4 mg/dl (8.4-10.2); Carbon Dioxide 25 mmol/L (22.0-30.0); Chloride 102 mmol/L (98-107); Creatinine,Serum 1.00 mg/dl (0.52-1.04); Estimated Glomerular Filt Rate 53 ml/min (>60); GFR (African American) 64 ML/MIN (>60); Globulin 2.3 g/dL (1.3-3.2); Glucose 105 mg/dl (74-100); Potassium 4.7 mmoL/L (3.5-5.1); Sodium 135 mmol/L (136-145); Total Protein,Serum 5.5 g/dl (6.3-8.2)
[2024-11-29 11:05] LABS: C-Reactive Protein 37.7 mg/L (0-4)
== END 2024-11-29 23:59 | disposition home or self-care (01) ==
LOC: LAB 09:33
PROVIDERS: PCP Nurse Practitioner Family; Visit Provider Internal Medicine Infectious Disease
DX: T84.54XD Infection and inflammatory reaction due to internal left knee prosthesis, subsequent encounter (principal); L03.116 Cellulitis of left lower limb; B95.1 Streptococcus, group B, as the cause of diseases classified elsewhere; A40.1 Sepsis due to streptococcus, group B; D72.823 Leukemoid reaction; I87.2 Venous insufficiency (chronic) (peripheral)
CPT/HCPCS: 36415; 80053; 85025; 85651; 86140

== ENCOUNTER 2024-12-21 09:50 | Outpatient (CLI) | payer MEDICARE, SELFPAY ==
--- OUTSIDE RECORDS SUMMARY | 2024-11-13 11:00 | XMS_ITS | Encounter Summary ---
Author Organization [facility] Address [address] [place] [address] Care Team Providers Care Power Plant Manager Name Role Phone Gracia Cleaning Dr Primary Care Provider Unavailabl e Reason for Visit * Reason Comments 6 week f/u Encounter Details Date Type Department Care Team (Latest Contact Info) Description 11/13/2024 11:00 AM EDT [facility] [address] [facility] [address] [place] [address] Deepa Lama MD [address] [facility] [address] [place] [address] History of bioprosthetic transcatheter aortic valve implantation (Primary Dx) Social History Tobacco Use Types Packs/Day Years [...] Sign Reading Time Taken Comments Blood Pressure 146/69 11/13/2024 11:27 AM EDT Pulse 110 11/13/2024 11:27 AM EDT Temperature - - Respiratory Rate - - Oxygen Saturation 95% 11/13/2024 11:27 AM EDT Inhaled Oxygen Concentration - - Weight 105 kg (231 lb) 11/13/2024 11:27 AM EDT Height 151.1 cm (4' 11.5 ) 11/13/2024 11:27 AM E DT Body Mass Index 45.88 11/13/2024 11:27 AM EDT documented in this encounter Progress Notes * Deepa Lama MD - 11/13/2024 11:00 AM EDT Images from the original note were not included. Structural Heart & Valve Intervention [facility] Cardiology Chief Complaint Patient presents with 6 week f/u Encounter Diagnosis Name Primary? History of bioprosthetic transcatheter aortic valve implantation Yes History of Present Illness Sy Barlow is a 84 y.o. female that presents to [facility] for evaluation of severe symptomatic aortic valve stenosis and consideration for percutaneous transcatheter aortic valve replacement (TAVR). The patient is referred by Dr. Miguel. The patient presents for aortic valve stenosis. [...] recorder implanted due to irregular heartbeats in [place]. The cardiac catheterization revealed no significant stenosis; nonobstructive coronary disease as per the patient. No stents were placed. She reports fatigue and takes afternoon naps. She has limited mobility due to eight knee surgeries and uses a walker for transfers only. She lives independently with weeklyassistance. She experiences leg swelling. She is interested in knowing if she is a candidate for TAVR and the recovery time post- procedure. She has sleep apnea and uses a CPAP machine, which she finds difficult to breathe without when lying down. She has arthritis. She has high blood pressure and is on medication for that. She has high cholesterol and is on medication for that. S/p transcatheter percutaneous aortic valve replacement on 10/12/2024 with a 23 mm Medtronic TAVR with Dr. Lama. Interval 10/2024: Patient is overall doing very well and says that her shortness of breath is resolved. Plan to finish 30 days of Plavix and then continue aspirin 81 mg daily for life. Patient will continue close follow-up with her primary cloth stock sorter. I will follow-up the patient in 1 year per TVT guidelines. EKG today in office shows heart rate 61 with sinus rhythm first-degree AV block. She has a loop recorder from the past. Current Outpatient Medications: Current Medications[1] ROS Constitutional: Patient denies fevers or chills. HEENT: Patient denies headache or diplopia. Cardiovascular: no chest pain Respiratory: Patient denies cough. Denies [...] on file Physical Exam 09/25/2024 10:38 AM 11/13/2024 11:27 AM 11/15/2024 10:58 AM Vitals Systolic 122 146 116 Diastolic 72 69 62 Heart Rate 86 110 40 Height (in) 4' 11.5 (1.511 m) 4' 11.5 (1.511 m) 4' 11 (1.499 m) Weight (lb) 210 231 230 BMI 41.71 kg/m2 45.88 kg/m2 46.45 kg/m2 BSA (m2) 2 m2 2.1 m2 2.08 m2 SpO2 96 % 95 % 100 % Visit Report Report Report Report Physical Exam Gen: Pleasant, no acute distress; obese. HEENT: oral mucosa moist, no bruits Chest Wall: No evidence of deformity Resp: Clear bilaterally, no wheezes Card: Regular rate. No murmur. Abd: Soft, nontender, nondistended Skin: Normal color, texture and turgor w/o lesions or eruptions Ext: no edema. Psych: AAOx3, demonstrated good judgement and [...] Assessment & Plan 84 y.o. female that presented to [facility] for evaluation of severe symptomatic aortic valve stenosis and consideration for percutaneous transcatheter aortic valve replacement(TAVR). S/p transcatheter percutaneous aortic valve replacement on 10/12/2024 with a 23 mm Medtronic TAVR with Dr. Lama. Elevated BMI Peripheral arterial disease Nonobstructive coronary disease Sleep apnea Interval 10/2024: Patient is overall doing very well and says that her shortness of breath is resolved. Plan to finish 30 days of Plavix and then continue aspirin 81 mg daily for life. Patient will continue close follow-up with her primary cloth stock sorter. I will follow-up the patient in 1 year per TVT guidelines. EKG today in office shows heart rate 61 with sinus rhythm first-degree AV block. She has a loop recorder from the past. Will plan to hold her metoprolol due to occasional bradycardia follow-up with her primary cardiology physician. Deepa Lama MD Structural Heart & Valve Disease [facility] Interventional Cardiology - [facility] ([facility]) Peer Support Specialist, [facility] [employer] [phone] 11/13/2024 [1] Current Outpatient Medications: aspirin 81 MG EC tablet, Take in the morning., Disp: , Rfl: Ddeyfic-Xzjfzxxezmm-Xnjrmhyzey (BREZTRI AEROSPHERE IN), Inhale., Disp: , Rfl: [...] in the morning., Disp: , Rfl: HYDROcodone-acetaminophen ([place]) 7.5-325 MG tablet, Take 1 tablet by [...] Take in the morning., Disp: , Rfl: cholecalciferol (Vitamin D-3) 50 MCG (1999 [place]) capsule, 50 mcg., Disp: , Rfl: Coenzyme Q10 (Q-SORB) 100 MG capsule, 100 mg., Disp: , Rfl: diclofenac-miSOPROStol (Arthrotec) 75-0.2 MG EC tablet, Two times a day (Patient not taking: Reported on 11/15/2024), Disp: , Rfl: Misc Natural Products (TURMERIC, CURCUMIN, PO), Take 3 tablets by mouth in the morning., Disp: , Rfl: [2] Patient Active Problem List Diagnosis Acquired renal cystic disease Aortic stenosis, non-rheumatic Aortic valve disorder Arthropathy Atherosclerosis of coronary artery without angina pectoris Bilateral lower limb edema Body mass index 40+ - severely obese (CMS/HCC) Cardiovascular stress test abnormal Cellulitis of left knee Chronic diastolic heart failure Chronic postoperative pain Closed fracture of metatarsal bone of right foot Coronary arteriosclerosis Dependence on enabling machine or device Disorder of kidney and/or ureter Disorder of vocal cord Dystrophia unguium Essential hypertension Earnest hematuria Gastro-esophageal reflux disease without esophagitis Gout History of heart valve repair with prosthesis Hyperlipidemia Hypertensive heart disease Hypoalbuminemia Hypokalemia Hypothyroidism Injury of head Internal derangement of left knee Laceration - injury Late effect of medical and surgical care complication Localized swelling of right foot Lymphedema Lymphedema of lower extremity Malaise Mild persistent asthma with acute exacerbation Mobitz type I incomplete atrioventricular block Morbid obesity (CMS/HCC) Neuropathic pain Nodule of lung Obstructive sleep apnea syndrome Onychomycosis Osteoarthritis of knee Angina, class III (CMS/HCC) Pain associated with internal prosthetic device (CMS/HCC) Pain of left knee joint Peripheral vascular disease (CMS/HCC) Post-traumatic gonarthrosis, bilateral Postmenopausal bleeding Postmenopausal osteopenia Postmenopausal osteoporosis Preoperative state Presence of artificial knee joint Recurrent falls Sciatica Seasonal allergic rhinitis Stress fracture of metatarsal bone of right foot Subclavian artery stenosis Venous insufficiency of leg Venous stasis syndrome [3] No past medical history on file. [4] No family history on file. documented in this encounter Plan of Treatment Upcoming Encounters Date Type Department Care Team ([facility] st Contact Info) Description 11/12/2025 11:15 AM EDT Office Visit [facility] - Cardiovascular Medicine [address] [facility] [address] [place] [address] Deepa Lama MD [address] [facility] [facility] [address] [place] [address] documented as of this encounter Procedures Procedure Name Priority Date/Time Associated Diagnosis Comments ECG 12-LEAD Routine 11/13/2024 12:22 PM EDT History of bioprosthetic transcatheter aortic valve implantation documented in this encounter Results * ECG 12 lead (11/13/2024 12:22 PM EDT) us Deepa Lama MD ECG ORDERABLES Final Result documented in this encounter Visit Diagnoses Diagnosis History of bioprosthetic transcatheter aortic valve implantation- Primary documented in this encounter Care Teams Power Plant Manager Relationship Specialty Start Date End Date Gracia Cleaning Dr. PCP - General 09/18/24 documented as of this encounter
--- OUTSIDE RECORDS SUMMARY | 2024-11-15 10:45 | XMS_ITS | Encounter Summary ---
Author Organization [facility] Address [address] [place] [address] Care Team Providers Care Window Shade Estimator Name Role Phone Gracia Cleaning Dr Primary Care Provider Unavailabl e Reason for Visit * Reason Comments Follow-up Encounter Details Date Type Department Care Team (Latest Contact Info) Description 11/15/2024 10:45 AM EDT Office Visit [facility] [address] [address] [place] [address] Pina Granados, YARDER OPERATOR [address] [place] [address] Follow-up arranged (Primary Dx); Severe aortic valve stenosis Social History Tobacco Use Types Packs/Day Years [...] Sign Reading Time Taken Comments Blood Pressure 116/62 11/15/2024 10:58 AM EDT Pulse 40 11/15/2024 10:58 AM EDT Temperature - - Respiratory Rate - - Oxygen Saturation 100% 11/15/2024 10:58 AM EDT Inhaled Oxygen Concentration - - Weight 104 kg (230 lb) 11/15/2024 10:58 AM EDT Height 149.9 cm (4' 11 ) 11/15/2024 10:58 AM EDT Body Mass Index 46.45 11/15/2024 10:58 AM EDT documented in this encounter Progress Notes * Zuleika HernandezSORAIDA - 11/15/2024 10:45 AM EDT Images from the original note were not included. [facility] Structural Heart Office Note Patient: Sy Barlow Age: 84 y.o. : 1940 Sex: Female Visit Date: 11/15/2024 Visit Type: Follow-up Visit Diagnosis 1. Follow-up arranged 2. Severe aortic valve stenosis History of Present Illness Sy Barlow presents to office for one month follow up TAVR. Patient denies syncope, edema andor orthopnea and fatigue. Patient states they have increased energy. She is not napping during the day. Patient denies SALAZAR, syncope and her edema is lessened.Cardiac rehab is discussed and patient isnot willing to attend.Patient is NYHA class II heart failure in office today. Patient remains on ASA as antiplatelet therapy . Patient denies any recent hospitalizations. Patient is taking his medicines as prescribed. They have seen their primary gas station service attendant Dr Lama on Wednesday of this week. Past Medical, Social and Family History Active Ambulatory Problems Diagnosis Date Noted 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 Aortic stenosis, non-rheumatic 11/09/2024 Aortic valve disorder 11/09/2024 Arthropathy 11/09/2024 Atherosclerosis of coronary artery without angina pectoris 11/09/2024 Bilateral lower limb edema 11/09/2024 Body mass index 40+ - severely obese (CMS/HCC) 11/09/2024 Cardiovascular stress test abnormal 11/09/2024 Cellulitis of left knee 11/09/2024 Chronic diastolic heart failure 11/09/2024 Chronic postoperative pain 11/09/2024 Closed fracture of metatarsal bone of right foot 11/09/2024 Coronary arteriosclerosis 11/09/2024 Dependence on enabling machine or device 11/09/2024 Disorder of kidney and/or ureter 11/09/2024 Disorder of vocal cord 11/09/2024 Dystrophia unguium 11/09/2024 Essential hypertension 11/09/2024 Earnest hematuria 03/31/2023 Gastro-esophageal reflux disease without esophagitis 11/09/2024 Gout 11/09/2024 History of heart valve repair with prosthesis 11/09/2024 Hyperlipidemia 11/09/2024 Hypertensive heart disease 11/09/2024 Hypoalbuminemia 11/09/2024 Hypokalemia 11/09/2024 Hypothyroidism 11/09/2024 Injury of head 11/09/2024 Internal derangement of left knee 11/09/2024 Laceration - injury 11/09/2024 Late effect of medical and surgical care complication 11/09/2024 Localized swelling of right foot 11/09/2024 Lymphedema 11/09/2024 Lymphedema of lower extremity 11/09/2024 Malaise 11/09/2024 Mild persistent asthma with acute exacerbation 11/09/2024 Mobitz type I incomplete atrioventricular block 11/09/2024 Morbid obesity ([facility]/HCC) 11/09/2024 Neuropathic pain 11/09/2024 Nodule of lung 11/29/2017 Obstructive sleep apnea syndrome 11/09/2024 Onychomycosis 11/09/2024 Osteoarthritis of knee 11/09/2024 Angina, class III ([facility]) 11/09/2024 Pain associated with internal prosthetic device ([facility]) 09/05/2015 Pain of left knee joint 11/09/2024 Peripheral vascular disease ([facility]) 11/09/2024 Post-traumatic gonarthrosis, bilateral 11/09/2024 Postmenopausal bleeding 11/09/2024 Postmenopausal osteopenia 11/09/2024 Postmenopausal osteoporosis 11/09/2024 Preoperative state 11/09/2024 Presence of artificial knee joint 11/09/2024 Recurrent falls 11/09/2024 Sciatica 11/09/2024 Seasonal allergic rhinitis 11/09/2024 Stress fracture of metatarsal bone of right foot 11/09/2024 Subclavian artery stenosis 11/09/2024 Venous insufficiency of leg 11/09/2024 Venous stasis syndrome 11/09/2024 Resolved Ambulatory Problems Diagnosis Date Noted No Resolved Ambulatory Problems No Additional Past Medical History Surgical History[1] Current Outpatient Medications Medication Instructions aspirin 81 MG EC tablet Daily Jveobyn-Jmmssyeetcm-Euqmzzfkjp (BREZTRI CompumatrixPHERE IN) Inhale. cephalexin (KEFLEX) 500 mg, Daily cholecalciferol (VITAMIN D-3) 50 mcg Crestor 10 MG tablet Daily Cyanocobalamin (B-12) 1000 MCG tablet Take by mouth. Cymbalta [address] capsule Daily diclofenac (Voltaren) 75 MG EC tablet 2 times daily diclofenac-miSOPROStol (Arthrotec) 75-0.2 MG EC tablet Two times a day doxycycline (MONODOX) 100 mg, Daily furosemide (LASIX) 40 mg, Daily HYDROcodone-acetaminophen ([place]) 7.5-325 MG tablet 1 tablet, Every 6 hours RT levocetirizine (Xyzal) 5 MG tablet Daily lisinopril 5 mg, Daily Magnesium Citrate 125 MG capsule Daily metoprolol tartrate (Lopressor) 25 MG tablet 2 times daily Misc Natural Products (TURMERIC, CURCUMIN, PO) 3 tablets, Daily Multiple Vitamin (Multi Vitamin) tablet Daily Polyethylene Glycol 3350 (MIRALAX PO) Take by mouth. potassium chloride CR (Klor-Con M20) 20 MEQ ER tablet 20 mEq Q-SORB 100 mg Synthroid 100 MCG tablet Daily Allergies[2] Social History[3] Family History[4] Review of Systems Constitutional: Negative for fatigue. HENT: Positive for hearing loss. Eyes: Negative. Respiratory: Positive for cough and wheezing. Negative for shortness of breath. Cardiovascular: Positive for leg swelling. Negative for chest pain and palpitations. Gastrointestinal: Negative. Endocrine: Negative. Genitourinary: Negative. Musculoskeletal: Positive for arthralgias. Joint pain Skin: Negative. Allergic/Immunologic: Positive for environmental allergies. Neurological: Negative for syncope and weakness. Hematological: Bruises/bleeds easily. Psychiatric/Behavioral: Negative. All other systems reviewed and are negative. Vitals: 11/15/24 1058 BP: 116/62 Pulse: (!) 40 SpO2: 100% Weight: 230 lb (104 kg) Height: 4' 11 (1.499 m) Physical Exam Constitutional: Appearance: Normal appearance. She is normal weight. HENT: Head: Normocephalic. Nose: Nose normal. Mouth/Throat: Mouth: Mucous membranes are dry. Pharynx: Oropharynx is clear. Eyes: Pupils: Pupils are equal, round, and reactive to light. Neck: Vascular: No carotid bruit. Cardiovascular: Rate and Rhythm: Normal rate and regular rhythm. Pulses: Carotid pulses are 2+ on the right side and 2+ on the left side. Radial pulses are 2+ on the right side and 2+ on the left side. Femoral pulses are 2+ on the right side and 2+ on the left side. Dorsalis pedis pulses are 1+ on the right side and 1+ on the left side. Posterior tibial pulses are 1+ on the right side and 1+ on the left side. Heart sounds: S1 normal and S2 normal. No murmur heard. No friction rub. No gallop. No S3 or S4 sounds. Pulmonary: Effort: Pulmonary effort is normal. Breath sounds: No wheezing, rhonchi or rales. Chest: Chest wall: No tenderness. Comments: Small hematoma Abdominal: General: Bowel sounds are normal. There is no distension. Palpations: Abdomen is soft. There is no mass. Tenderness: There is no abdominal tenderness. Musculoskeletal: General: Normal range of motion. Cervical back: Normal range of motion and neck supple. Right lower le+ Edema present. Left lower le+ Edema present. Skin: General: Skin is warm and dry. Capillary Refill: Capillary refill takes 2 to 3 seconds. Neurological: General: No focal deficit present. Mental Status: She is alert and oriented to person, place, and time. Mental status is at baseline. Psychiatric: Mood and Affect: Mood normal. Behavior: Behavior normal. Thought Content: Thought content normal. Judgment: Judgment normal. Walk Test (seconds/15 feet) KCCQ-12 Questionnaire filled out by patient and scanned into encounter. [place] Activities of Daily Living Questionnaire filled out by patient and scanned into encounter. Data Assessment, Management and Plan Risk Impression and Plan Patient is doing well and has more energy she denies hospital visit. She states she has small hematoma under left breast and had US. This issue is resolving. Patients HR in office is [address] Lama who did a EKG on Wednesday which revealed ER 61 with 1 degree AVB. Patient is on Metoprolol and has a loop recorder. Dr Lama discontinued her metoprolol and he will follow up with her in 1 week. Our plan will be to see her back in 1 year with echo. Education 30 day follow up Post-Op Patient Information sheet given to patient and discussed. Answered all questions and concerns. Will see again in 1 year. Nurse Practitioner Attestation: No new problems were diagnosed during the visit, any/all problem(s) managed today have been managedpreviously by a physician in this practice. Zuleika Hernandez MA [facility] 11/15/2024 [1] No past surgical history on file. [2] Allergies Allergen Reactions Amlodipine Etodolac Itching and Unknown etodolac Latex Nsaids Itching Penicillins Muscle Pain/Myalgia and Unknown Chest pressure Sulfa Antibiotics Itching Sulfamethoxazole-Trimethoprim Itching Valdecoxib Unknown Bextra Phentermine Rash and Unknown [3] Social History Tobacco Use Smoking status: Never Smokeless tobacco: Never Substance Use Topics Alcohol use: Never Drug use: Never [4] No family history on file. documented in this encounter Plan of Treatment Upcoming Encounters Date Type Department Care Team ([facility] st Contact Info) Description 11/12/2025 11:15 AM EDT [facility] [address] [place] [address] [address] [place] [address] Deepa Lama MD [address] [place] [address] [address] [place] [address] documented as of this encounter Visit Diagnoses Diagnosis Follow-up arranged- Primary Severe aortic valve stenosis documented in this encounter Care Teams Window Shade Estimator Relationship Specialty Start Date End Date Gracia Cleaning Dr. PCP - General 09/18/24 documented as of this encounter
--- OUTSIDE RECORDS SUMMARY | 2024-12-21 10:01 | XMS_ITS | Encounter Summary ---
Author Organization [employer] ([place], [place], [place], [place]) Address [address] [place] [address] Care Team Providers Care Autographer Name Role Phone Unavailable Primary Care Provider Unavailabl e Encounter Details Date Type Department Care Team (Late st Contact Info) Description 08/26/2020 Transcribed Document [facility] [place] [facility] [place] [address] ProviderMariela MD [facility] [place] [address] Social History Tobacco Use [...]
--- OUTSIDE RECORDS SUMMARY | 2024-12-21 10:01 | XMS_ITS | Encounter Summary ---
Author Organization [employer] ([place], [place], [place], [place]) Address [address] [place] [address] Care Team Providers Care Drug And Alcohol Counsellor Name Role Phone Unavailable Primary Care Provider Unavailabl e Encounter Details Date Type Department Care Team (Late st Contact Info) Description 08/26/2020 Transcribed Document [facility] [place] Medicine [facility] [place] [address] ProviderMariela MD [address] [place] [address] Social History Tobacco Use [...]
--- OUTSIDE RECORDS SUMMARY | 2024-12-21 10:01 | XMS_ITS | Encounter Summary ---
Author Organization [employer] ([place], [place], [place], [place]) Address [address] [place] [address] Care Team Providers Care Site Interpreter Name Role Phone Unavailable Primary Care Provider Unavailabl e Encounter Details Date Type Department Care Team (Late st Contact Info) Description 08/26/2020 Transcribed Document [facility] [place] [facility] [place] [address] ProviderMariela [place] [address] Social History Tobacco Use Types [...]
--- OUTSIDE RECORDS SUMMARY | 2024-12-21 10:01 | XMS_ITS | Encounter Summary ---
Author Organization [employer] ([place], [place], [place], [place]) Address [address] [place] [address] Care Team Providers Care Orthodontic Band Maker Name Role Phone Unavailable Primary Care Provider Unavailabl e Encounter Details Date Type Department Care Team (Late st Contact Info) Description 08/27/2020 Transcribed Document [facility] [place] [facility] [place] [address] ProviderMariela MD [facility] [place] [address] Social History Tobacco Use Types [...] Referral(s): Service: Organization: Business Address: Phone Number: Machine Straw Hat Presser [facility] at [address], [place], [address] Discharge Options Discussed with Patient : Discharge transportation, DME, jail rehabilitation Barriers to Discharge Identified : No [...] denied patient for rehab. Isabelle from the [facility] spoke to patient and she can go Self pay. Patient will be going to room 208 at the [facility]. Ramuisabell set up for 10 am on WednesdayAugust 28. Silva at [facility] notified of patient going to SNF per Esteban pharmacist. Scripts will be faxed over to Pharmacy at the [facility]. Case Management will continue to follow patient til discharge. CALL REPORT TO AND FAX DISCHARGE SUMMARY TO . Ramuisabell will pick patient up on 08/28/20 at 10am via stretcher. REF# [id number]. ADALBERTO BEE RN - 08/27/2020 14:46 EDT Historical Progress Note : Per MDR's patient not ready to be discharged yet. Pending preautorization at [facility]. Called and spoke with Richard and [...] wants to go to Rehab and choose [facility] or [facility]. Referral faxed via Mike and isabelle notified. [...]
--- OUTSIDE RECORDS SUMMARY | 2024-12-21 10:01 | XMS_ITS | Encounter Summary ---
Author Organization [employer] ([place], [place], [place], [place]) Address [address] [place] [address] Care Team Providers Care Yarn Salvager Name Role Phone Unavailable Primary Care Provider Unavailabl e Encounter Details Date Type Department Care Team (Late st Contact Info) Description 08/26/2020 Transcribed Document [facility] [place] [facility] [place] [address] ProviderMariela MD [facility] [place] [address] Social History Tobacco Use Types [...]
--- OUTSIDE RECORDS SUMMARY | 2024-12-21 10:01 | XMS_ITS | Encounter Summary ---
Author Organization [employer] ([place], [place], [place], [place]) Address [address] [place] [address] Care Team Providers Care Narcotics Investigator Name Role Phone Unavailable Primary Care Provider Unavailabl e Encounter Details Date Type Department Care Team (Late st Contact Info) Description 08/26/2020 Transcribed Document [facility] Family Medicine [facility] [place] [address] ProviderMariela MD [facility] [place] [address] Social History Tobacco Use Types [...] Historical ProviderMD - 08/26/2020 2:00 AM CDT Meat Packager Details Entered On: 08/26/2020 1:33 EDT Performed [...] EDT Electronically signed by Maureen Cornejo Conversion Clay Processing Factory Worker Min at 06/16/2022 8:30 PM CDT documented in this encounter Plan of Treatment Not on file documented as of this encounter Visit Diagnoses Not on filedocumented in this encounter
--- OUTSIDE RECORDS SUMMARY | 2024-12-21 10:01 | XMS_ITS | Encounter Summary ---
Author Organization [employer] ([place], [place], [place], [place]) Address [address] [place] [address] Care Team Providers Care University Manager Name Role Phone Unavailable Primary Care Provider Unavailabl e Encounter Details Date Type Department Care Team (Late st Contact Info) Description 08/26/2020 Transcribed Document [facility] [place] Family Medicine [address] [place] [address] ProviderMariela MD [address] [place] [address] Social History Tobacco Use Types [...]
--- OUTSIDE RECORDS SUMMARY | 2024-12-21 10:01 | XMS_ITS | Encounter Summary ---
Author Organization [employer] ([place], [place], [place], [place]) Address [address] [place] [address] Care Team Providers Care Drip Molder Name Role Phone Unavailable Primary Care Provider Unavailabl e Encounter Details Date Type Department Care Team (Late st Contact Info) Description 08/27/2020 Transcribed Document [facility] [place] Family Medicine [facility] [place] [address] [facility] [place] [address] Social History Tobacco Use Types [...] her best interest is to go to assisted facility to continue her care and rehab. [...] PT/OT ???Released by PT/OT to go to assisted facility ???Tolerating well oral p.o. intake ???No [...] EDT Chloraseptic Menthol 1.4% topical spray: 5 [place], Oral, [place], Q2H, PRN for Sore Throat, Routine, Start [...] EDT fluticasone 50 mcg/inh nasal spray: 2 [place], Nostrils Both, [place], BID, PRN for Allergies, Routine, Start 08/20/20 [...] Refill(s) fluticasone 50 mcg/inh nasal spray: 2 [place], Nostrils Both, [place], BID, PRN Allergies, 0 Refill(s) furosemide 40 [...] Oral, Daily fluticasone 0.05% nasal spray 2 [place], Nostrils Both, BID magnesium hydroxide 8% liq [...] Oral, Q4H phenol 1.4% throat spray 5 [place], Oral, Q2H senna 8.6 mg tab 8.6 [...] % 23.7 % Lymph # 2.60 K/uL [place] % 11.7 % [place] # 1.28 K/uL [place] Eos % 7.6 % [place] Eos # 0.83 K/uL [place] Baso % 0.2 % Baso # 0.02 K/uL Slide Review No IG# 0 x10(3)/uL IG% 0 % . Condition: Stable. Discharge Plan Discharge Summary Plan Discharge Status: stable. Orders Order Profile (Selected) Inpatient Orders Ordered Discharge Notification Pharmacy: Start: 08/27/20 12:23:32 EDT Discharge: Start: 08/27/20 12:23:00 EDT, Discharge to: Senior Care unit/facility. Diagnosis Acute blood loss anemia - [...] & CLINICALLY STABLE AFEBRILE OK TO D/C assisted facility to continue her care and rehab. [...] Refill(s) fluticasone 50 mcg/inh nasal spray: 2 [place], Nostrils Both, [place], BID, PRN Allergies, 0 Refill(s) furosemide 40 [...] discharge orders placed, discharge summary note dictated. Electronically signed by Maureen Cornejo Conversion Comparative Sociology Professor Cerner at 06/16/2022 8:17 PM CDT documented in this encounter Plan of Treatment Not on file documented as of this encounter Visit Diagnoses Not on filedocumented in this encounter
--- OUTSIDE RECORDS SUMMARY | 2024-12-21 10:01 | XMS_ITS | Encounter Summary ---
Author Organization [employer] ([place], [place], [place], [place]) Address [address] [place] [address] Care Team Providers Care Spinning Frame Changer Name Role Phone Unavailable Primary Care Provider Unavailabl e Encounter Details Date Type Department Care Team (Late st Contact Info) Description 08/26/2020 Transcribed Document [facility] [place] Family Medicine [facility] [place] [address] ProviderMariela MD [address] [place] [address] Social History Tobacco Use Types [...] : Insurance 1 Health Plan: [facility] MEDICARE ADVANTAGE Policy Number: [id number] Authorization Number: [id number] Insurance Primary Name : [facility] MEDICARE ADVANTAGE Policy Number: [id number] Authorization Status-Primary : Admit approved Reference Number-Primary : [id number] Authorization Number-Primary : [id number] Number of Days Authorized-Primary : 0 Day(s) Authorized Service Begin Date-Primary : 08/20/2020 EDT Authorized Service End Date-Primary : 08/20/2020 EDT Authorization Comments-Primary : Uploaded cont stay clinicals (08/22-08/26/20) to [facility] Medicare via [employer]. Historical Authorization Comments-Primary : Comment 1: Uploaded cont stay clinicals (08/21/20) to [facility] Medicare via [employer]. (KARAN WATSON, RN-Utilization Review 08/21/2020 08:36) Comment 2: Note on [facility] website:Patient was initially scheduled [...] AQUINO RN-Utilization Review 08/19/2020 15:20) Comment 3: [facility] Medicare approved per website for 1 day (TIESHA AQUINO RN-Utilization Review 08/19/2020 15:14) KARAN WATSON RN-Utilization Review - 08/26/2020 10:04 EDT Electronically signed by Maureen Cornejo Conversion Machining Department Supervisor T[place]ner at 06/16/2022 8:07 PM CDT documented in this encounter Plan of Treatment Not on file documented as of this encounter Visit Diagnoses Not on filedocumented in this encounter
--- OUTSIDE RECORDS SUMMARY | 2024-12-21 10:01 | XMS_ITS | Encounter Summary ---
Author Organization [employer] ([place], [place], [place], [place]) Address [address] [place] [address] Care Team Providers Care Dump Truck Driver Off Highway Name Role Phone Unavailable Primary Care Provider Unavailabl e Encounter Details Date Type Department Care Team (Late st Contact Info) Description 08/27/2020 Transcribed Document [facility] [place] [address] [place] [address] ProviderMariela MD [address] [place] [address] Social History Tobacco Use Types [...]
--- OUTSIDE RECORDS SUMMARY | 2024-12-21 10:01 | XMS_ITS | Encounter Summary ---
Author Organization [employer] ([place], [place], [place], [place]) Address [address] [place] [address] Care Team Providers Care Mill Representative Name Role Phone Unavailable Primary Care Provider Unavailabl e Encounter Details Date Type Department Care Team (Late st Contact Info) Description 08/26/2020 Transcribed Document [facility] [place] Family Medicine [facility] [place] [address] ProviderMariela MD [facility] [place] [address] Social History Tobacco Use Types [...] On: 08/26/2020 11:49 EDT by Gabbie Calderon, Pediatrics Teacher General Information, PT Visit Type, PT : [...] activity permitted and NWB RLE Gabbie Calderon, Pediatrics Teacher - 08/26/2020 11:49 EDT General Status Patient Received Status : Long sitting in bed Treatment Start Time : 08/26/2020 11:12 EDT Patient Left Status : Long sitting in bed, RN/PCT informed, All needs met and within reach, Other: kirk stoddard RLE cast RN/PCT Informed Comment : RN okayed PT Treatment End Time : 08/26/2020 11:30 EDT Treatment Time : 18 Minute(s) Gabbie Calderon, Pediatrics Teacher - 08/26/2020 11:49 EDT Edu Topics Physical Therapy Education Grid Bed Mobility Training : Verbalizes understanding, Returns demonstration, Needs reinforcement Positioning : Verbalizes understanding, Returns demonstration Role of Physical Therapy : Verbalizes understanding, Returns demonstration Gabbie Calderon, Pediatrics Teacher - 08/26/2020 11:49 EDT Plan of Care, PT PT Tx Plan/Goals Established w Patient : Yes Gabbie Calderon, Pediatrics Teacher - 08/26/2020 11:49 EDT Mcfp Goals Other PT LTG Grid Goal #1 [...] for bed MAX Ax2 08/26 Gabbie Calderon, Pediatrics Teacher - 08/26/2020 11:49 EDT Gabbie Calderon, Pediatrics Teacher - 08/26/2020 11:49 EDT Gabbie Calderon, Pediatrics Teacher - 08/26/2020 11:49 EDT Treatment Note Subjective [...] x2, cued to reach for OT for CHARGE ENTRY CLERK required much assistance to move UE, and [...] Treatment : Continue PT POC Gabbie Calderon, Pediatrics Teacher - 08/26/2020 11:49 EDT Pain Assessment Pain Scaled Used : 0-10 Pain scale Pain Score Pre-Intervention : 0 Gabbie Calderon, Pediatrics Teacher - 08/26/2020 11:49 EDT Image 1 - Images currently included in the form version of this document have not been included in the text rendition version of the form. [place] PT Charges BALLING MACHINE OPERATOR PT Ther Activities Ea 15 Min-BALLING MACHINE OPERATOR : 1 Gabbie Calderon, Pediatrics Teacher - 08/26/2020 11:49 EDT documented in this encounter Plan of Treatment Not on file documented as of this encounter Visit Diagnoses Not on filedocumented in this encounter
--- OUTSIDE RECORDS SUMMARY | 2024-12-21 10:01 | XMS_ITS | Encounter Summary ---
Author Organization [employer] ([place], [place], [place], [place]) Address [address] [place] [address] Care Team Providers Care Miller Wood Flour Name Role Phone Unavailable Primary Care Provider Unavailabl e Encounter Details Date Type Department Care Team (Late st Contact Info) Description 08/26/2020 Transcribed Document [facility] [place] Family Medicine [facility] [place] [address] ProviderMariela MD [facility] [place] [address] Social History Tobacco Use Types [...] the insurance refused to send her to shelter facility to continue her care and stated [...] EDT Chloraseptic Menthol 1.4% topical spray: 5 [place], Oral, [place], Q2H, PRN for Sore Throat, Routine, Start [...] EDT fluticasone 50 mcg/inh nasal spray: 2 [place], Nostrils Both, [place], BID, PRN for Allergies, Routine, Start 08/20/20 [...] Refill(s) fluticasone 50 mcg/inh nasal spray: 2 [place], Nostrils Both, [place], BID, PRN Allergies, 0 Refill(s) furosemide 40 [...] Oral, Daily fluticasone 0.05% nasal spray 2 [place], Nostrils Both, BID magnesium hydroxide 8% liq [...] Oral, Q4H phenol 1.4% throat spray 5 [place], Oral, Q2H senna 8.6 mg tab 8.6 [...] % 23.7 % Lymph # 2.60 K/uL [place] % 11.7 % [place] # 1.28 K/uL [place] Eos % 7.6 [...] fall risk and need to go to shelter facility. Electronically signed by Maureen Cornejo Conversion Helmet Hat Sweatband Puncher Cerner at 06/16/2022 8:17 PM CDT documented in this encounter Plan of Treatment Not on file documented as of this encounter Visit Diagnoses Not on filedocumented in this encounter
--- OUTSIDE RECORDS SUMMARY | 2024-12-21 10:02 | XMS_ITS | Encounter Summary ---
Author Organization [employer] ([place], [place], [place], [place]) Address [address] [place] [address] Care Team Providers Care Substitute Bus Driver Name Role Phone Unavailable Primary Care Provider Unavailabl e Encounter Details Date Type Department Care Team (Late st Contact Info) Description 07/16/2019 Transcribed Document [facility] [place] [facility] [place] [address] ProviderMariela MD [address] [place] [address] Social History Tobacco Use Types Packs/Day Years [...]
--- OUTSIDE RECORDS SUMMARY | 2024-12-21 10:02 | XMS_ITS | Encounter Summary ---
Author Organization [employer] ([place], [place], [place], [place]) Address [address] [place] [address] Care Team Providers Care Radio Repairer Name Role Phone Unavailable Primary Care Provider Unavailabl e Encounter Details Date Type Department Care Team (Late st Contact Info) Description 08/21/[address] [facility] [place] Family Medicine [facility] [place] [address] ProviderMariela MD [address] [place] [address] Social History Tobacco Use Types Packs/Day [...] WM MORROW PTA - 08/25/2020 11:20 EDT Fpc Goals Other PT LTG Grid [...] ODALYS BOBO BURK - 08/25/2020 11:[address] [facility] PT Charges SPRINKLER INSTALLER PT Ther Activities Ea 15 Min-SPRINKLER INSTALLER : 1 MORROW BOBO BURK - 08/25/2020 11:20 EDT documented in this encounter Plan of Treatment Not on file documented as of this encounter Visit Diagnoses Not on filedocumented in this encounter
--- OUTSIDE RECORDS SUMMARY | 2024-12-21 10:02 | XMS_ITS | Encounter Summary ---
Author Organization [employer] ([place], [place], [place], [place]) Address [address] [place] [address] Care Team Providers Care Braid Cutter Name Role Phone Unavailable Primary Care Provider Unavailabl e Encounter Details Date Type Department Care Team (Late st Contact Info) Description 07/14/2019 Transcribed Document [facility] Radiology [address] [place] [address] Shawanda Barahona MD [address] [id number] Social History Tobacco Use Types Packs/Day Years [...] (JULY 05) Micro: [facility]: 06/15 [facility] Blood [...] effects; diarrhea, elevated LFT's, fungal superinfection etc test case developer needs to explain why patient cannot stay in LTAC longer and help find SNF that taz feels good about going to documented in this encounter Plan of Treatment Not on file documented as of this encounter Visit Diagnoses Not on filedocumented in this encounter
--- OUTSIDE RECORDS SUMMARY | 2024-12-21 10:02 | XMS_ITS | Encounter Summary ---
Author Organization [employer] ([place], [place], [place], [place]) Address [address] [place] [address] Care Team Providers Care Venue Coordinator Name Role Phone Unavailable Primary Care Provider Unavailabl e Encounter Details Date Type Department Care Team (Late st Contact Info) Description 10/26/2020 Transcribed Document [facility] [place] [address] ProviderMariela MD [address] [place] [address] Social History Tobacco Use Types [...] Mariela ProviderMD - 10/26/2020 1:54 PM CDT [place] [id number] SOFIA GILL :1940 Visit Time:10/26/2020 Your Visit [...] follow up appointment Follow-up as instructed Where: [address] [place], [place] [id number]- [facility] (1) Follow Up with Follow up with primary care provider When Within 2 to 3 days Comments Call for follow up appointment. Please follow-up with your primary care provider in 2 to 3 days. Return to ED if you experience new or worsening symptoms. If you do not have a primary care provider the patient resource hospice office coordinator can assist you with establishing care and scheduling follow-up. The Patient Resource Architectural Renderer can be contacted at . Allergies Mobic [...] range between ( 1.0 and 7.0 ) [place] #: 1.11 K/uL -- Normal range between ( 0.24 and 0.82 ) Eos #: 1.06 K/uL -- Normal range between ( 0.04 and 0.54 ) [place] %: 8.8 % -- Normal range between [...] provider. Document Revised: 02/24/2017 Document Reviewed: 02/01/2017 Handprint Patient Education ?? 2020 [employer]. Emergency Awareness and Preventative Care STROKE is [...] Assistance with quitting is available by contacting [phone]-[phone]-NOW. This is a free resource providing counseling, [...] was given the opportunity to ask questions. Patient/Corporate Development Intern Name: Patient/Corporate Development Intern Signature: Relationship to Patient: Clinician/Hospital Corporate Development Intern Signature: Please Provide a Telephone Number Where You Can Be Reached: Is it Permissible To Leave a Message? Date: documented in this encounter Plan of Treatment Not on file documented as of this encounter Visit Diagnoses Not on filedocumented in this encounter
--- OUTSIDE RECORDS SUMMARY | 2024-12-21 10:02 | XMS_ITS | Encounter Summary ---
Author Organization [employer] ([place], [place], [place], [place]) Address [address] [place] [address] Care Team Providers Care It Help Desk Analyst Name Role Phone Unavailable Primary Care Provider Unavailabl e Encounter Details Date Type Department Care Team (Late st Contact Info) Description 08/21/2020 Transcribed Document [facility] [place] [address] ProviderMariela MD [facility] [address] Social History Tobacco [...] Referral(s): Service: Organization: Business Address: Phone Number: Treating And Pumping Supervisor Care [facility] [place] at [address], [address] Discharge Options Discussed with Patient : Discharge transportation, DME, halfway rehabilitation Barriers to Discharge Identified : Clinical Condition of Patient Barriers to Discharge Unresolved : Clinical Condition of Patient Designation of Choice Signed : No Patient Offered Choice/Affiliations Explained : Yes List/Info Provided Pt/Fam/Support Person : Durable medical equipment, [facility] facilities Were Referrals Sent to Post Acute [...] wants to go to Rehab and choose [place] [facility] or [place]. Referral faxed via [facility] and brooke notified. 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 DME: patient has a wc, showerchair and a walker at home. CM: jevon jon will continue to follow patient TRANS: will need an [facility] to transport patient there. ADALBERTO BEE RN - 08/21/2020 14:05 EDT documented in this encounter Plan of Treatment Not on file documented as of this encounter Visit Diagnoses Not on filedocumented in this encounter
--- OUTSIDE RECORDS SUMMARY | 2024-12-21 10:02 | XMS_ITS | Encounter Summary ---
Author Organization [employer] ([place], [place], [place], [place]) Address [address] [place] [address] Care Team Providers Care Public Information Coordinator Name Role Phone Unavailable Primary Care Provider Unavailabl e Encounter Details Date Type Department Care Team (Late st Contact Info) Description 07/15/2019 Transcribed Document [facility] [place] Family Medicine [address] [place] [address] ProviderMariela MD [address] [place], [place] [id number] Social History Tobacco Use Types Packs/Day Years [...]
--- OUTSIDE RECORDS SUMMARY | 2024-12-21 10:02 | XMS_ITS | Encounter Summary ---
Author Organization [employer] ([place], [place], [place]) Address [address] [place] [address] Care Team Providers Care Sports Management Professor Name Role Phone Unavailable Primary Care Provider Unavailabl e Encounter Details Date Type Department Care Team (Late st Contact Info) Description 07/15/2019 Transcribed Document [facility] [place] Family Medicine [address] [place] [address] ProviderMariela MD [address], [place] [id number] Social History Tobacco Use Types Packs/Day Years [...]
--- OUTSIDE RECORDS SUMMARY | 2024-12-21 10:02 | XMS_ITS | Encounter Summary ---
Author Organization [employer] ([place], [place], [place], [place]) Address [address] [place] [address] Care Team Providers Care Primary Teaching Assistant Name Role Phone Unavailable Primary Care Provider Unavailabl e Encounter Details Date Type Department Care Team (Late st Contact Info) Description 07/15/2019 Transcribed Document [facility] [place] Family Medicine [facility] [place] [address] ProviderMariela MD [address] [place] [address] Social History Tobacco Use Types Packs/Day Years [...] Historical ProviderMD - 07/15/2019 2:00 AM CDT Trading Floor Operator Details Entered On: 07/15/2019 2:33 EDT Performed [...] 07/15/2019 2:33 EDT Electronically signed by Chantal [facility] Conversion Senior Php Software Developer Cerner at 06/16/2022 8:26 PM CDT documented in this encounter Plan of Treatment Not on file documented as of this encounter Visit Diagnoses Not on filedocumented in this encounter
--- OUTSIDE RECORDS SUMMARY | 2024-12-21 10:02 | XMS_ITS | Encounter Summary ---
Author Organization [employer] ([place], [place], [place], [place]) Address [address] [place] [address] Care Team Providers Care Director Of Distance Learning Name Role Phone Unavailable Primary Care Provider Unavailabl e Encounter Details Date Type Department Care Team (Late st Contact Info) Description 08/27/2020 Transcribed Document [facility] [place] Family Medicine [address] [place] [address] ProviderMariela MD [address] [place] [address] Social History Tobacco Use Types [...]
--- OUTSIDE RECORDS SUMMARY | 2024-12-21 10:02 | XMS_ITS | Encounter Summary ---
Author Organization [employer] ([place], [place], [place], [place]) Address [address] [place] [address] Care Team Providers Care Wafer Fabrication Operator Name Role Phone Unavailable Primary Care Provider Unavailabl e Encounter Details Date Type Department Care Team (Late st Contact Info) Description 08/27/2020 Transcribed Document [facility] [place] [facility] [place] [address] ProviderMariela MD [address] [place] [address] Social History Tobacco Use Types [...] 08/27/2020 12:23 EDT Electronically signed by Chantal [facility] Conversion Hydraulic Jack Operator Cerner at 06/16/2022 8:06 PM CDT documented in this encounter Plan of Treatment Not on file documented as of this encounter Visit Diagnoses Not on filedocumented in this encounter
--- OUTSIDE RECORDS SUMMARY | 2024-12-21 10:02 | XMS_ITS | Encounter Summary ---
Author Organization [employer] ([place], [place], [place], [place]) Address [address] [place] [address] Care Team Providers Care Retail Services Professional Name Role Phone Unavailable Primary Care Provider Unavailabl e Encounter Details Date Type Department Care Team (Late st Contact Info) Description 10/26/2020 Transcribed Document [facility] [place] Family Medicine [facility] [place] [address] ProviderMariela MD [address] [place] [address] Social History Tobacco Use Types Packs/Day [...] & time 10/26/2020 01:45:00, Voice recognition / fast brim pouncer technology used for some documentation in this [...] EDT Height Source Stated Height Entry Format [place] Height/Length, UZBEK (ft) 5 ft Height/Length UZBEK 0 Inch CLINICALHEIGHT 152.4 cm [place] Body Weight 49.16 kg Weight Source, ED Critical estimated dosing weight Weight Entry Format [place] Weight Icelandic lb 200 lb CLINICALWEIGHT 90.91 kg Body [...] Triage: ED C-SSRS: ED Clinical Reconciliation: ED tiedown operator: ESR Sedimentation Rate Auto: Immobilizer Brace Splint [...] % 24.6 % Lymph # 3.10 K/uL [place] % 8.8 % [place] # 1.11 K/uL [place] Eos % 8.4 [...]
--- OUTSIDE RECORDS SUMMARY | 2024-12-21 10:02 | XMS_ITS | Encounter Summary ---
Author Organization [employer] ([place], [place], [place], [place]) Address [address] [place] [address] Care Team Providers Care Cheese Specialist Name Role Phone Unavailable Primary Care Provider Unavailabl e Encounter Details Date Type Department Care Team (Late st Contact Info) Description 10/26/2020 Transcribed Document [facility] [place] [facility] [place] [address] ProviderMariela MD [facility] [place] [address] Social History Tobacco Use Types [...] On: 10/26/2020 2:30 EDT by Peggy Rayo HOBBING PRESS OPERATOR Quick Look Assessment Level of Consciousness : Alert, Awake Affect/Behavior : Appropriate, Calm, Cooperative Orientation : Oriented x 4 Skin Temperature : Warm Skin Description : Normal for ethnicity Peggy Rayo RN - 10/26/2020 3:19 EDT ED General-Functional Assess Information Obtained From : Patient Communication Barrier : None Primary Language : Urdu Any Spiritual/Cultural Needs or Requests : No [...] EDT Electronically signed by Maureen Cornejo Conversion Bowling Ball Mold Assembler Cerner at 06/16/2022 8:26 PM CDT documented in this encounter Plan of Treatment Not on file documented as of this encounter Visit Diagnoses Not on filedocumented in this encounter
--- OUTSIDE RECORDS SUMMARY | 2024-12-21 10:02 | XMS_ITS | Encounter Summary ---
Author Organization [employer] ([place], [place], [place], [place]) Address [address] [place] [address] Care Team Providers Care University Registrar Name Role Phone Unavailable Primary Care Provider Unavailabl e Encounter Details Date Type Department Care Team (Late st Contact Info) Description 08/21/2020 Transcribed Document [facility] [place] [facility] [place] [address] ProviderMareila MD [facility] [place] [address] Social History Tobacco Use Types [...] PT Evaluation and Treatment Ordered By: SOLOMON MCCRAKCEN PA-C Active Diagnoses : Presence of right [...] Upper Extremity Comment : see OT notes HCAITANYA SIMON, PT - 08/21/2020 10:48 EDT Lower Extremity RLE Active ROM : Impaired Right LE Active Assist ROM : Impaired RLE Passive ROM : Impaired Right LE Strength : Impaired LLE Active ROM : WFL Left LE Strength : Impaired Lower Extremity Comment : RLE is held in cast from hip to toes. Pt is not permitted right quad activity and uses leg plug sorter to assist with movement of RLE in cast CHAITANYA SIMON, PT - 08/21/2020 10:48 EDT Functional Mobility Mobility Grid Bed Scooting : Rehab Total assistance (Comment: x2 [CHAITANYA SIMNO, PT - 08/21/2020 10:48 EDT] ) Supine [...] CHAITANYA SIMON, PT - 08/21/2020 10:48 EDT Senior Living Goals Other PT LTG Grid Goal #1 [...] Needs, OT/PT Anticipated Discharge to : Unit, group home CHAITANYA SIMON, PT - 08/21/2020 10:48 EDT [place] PT Charges PT Ther Activities Ea 15 Min : 2 PT [place] Moderate Complexity : 1 CHAITANYA SIMON, PT - 08/21/2020 10:48 EDT Electronically signed by Chantal [facility] Conversion Private Secretary Cerner at 06/16/2022 8:05 PM CDT documented in this encounter Plan of Treatment Not on file documented as of this encounter Visit Diagnoses Not on filedocumented in this encounter
--- OUTSIDE RECORDS SUMMARY | 2024-12-21 10:02 | XMS_ITS | Encounter Summary ---
Author Organization [employer] ([place], [place], [place], [place]) Address [address] [place] [address] Care Team Providers Care Supervisor Anodizing Name Role Phone Unavailable Primary Care Provider Unavailabl e Encounter Details Date Type Department Care Team (Late st Contact Info) Description 10/26/2020 Transcribed Document [facility] [place] [facility] [place] [address] ProviderMariela MD [address] [place] [address] Social History Tobacco Use Types [...] Mariela ProviderMD - 10/26/2020 1:52 PM CDT [place] [id number] SOFIA GILL :1940 Visit Time:10/26/2020 Your Visit [...] up appointment Follow-up as instructed Where: [address] [place], [place] [id number]- [facility] (1) Follow Up with Follow up with primary care provider When Within 2 to 3 days Comments Call for follow up appointment. Please follow-up with your primary care provider in 2 to 3 days. Return to ED if you experience new or worsening symptoms. If you do not have a primary care provider the patient resource energy scheduler can assist you with establishing care and scheduling follow-up. The Patient Resource Puttying And Calking Supervisor can be contacted at . Allergies Mobic [...] range between ( 1.0 and 7.0 ) [place] #: 1.11 K/uL -- Normal range between ( 0.24 and 0.82 ) [place] #: 1.06 K/uL -- Normal range between ( 0.04 and 0.54 ) [place] %: 8.8 % -- Normal range between [...] provider. Document Revised: 02/24/2017 Document Reviewed: 02/01/2017 Brain in [employer] Patient Education ?? 2020 [employer]. Emergency Awareness and Preventative Care STROKE is [...] Assistance with quitting is available by contacting 8-049-ZXHE-NOW. This is a free resource providing counseling, [...] was given the opportunity to ask questions. Patient/Make Up Arranger Name: Patient/Make Up Arranger Signature: Relationship to Patient: Clinician/Hospital Make Up Arranger Signature: Please Provide a Telephone Number Where You Can Be Reached: Is it Permissible To Leave a Message? Date: Electronically signed by Chantal, [facility] Conversion Anthony Copeland at 06/16/2022 8:25 PM CDT documented in this encounter Plan of Treatment Not on file documented as of this encounter Visit Diagnoses Not on filedocumented in this encounter
--- OUTSIDE RECORDS SUMMARY | 2024-12-21 10:02 | XMS_ITS | Encounter Summary ---
Author Organization [employer] ([place], [place], [place], [place]) Address [address] [place] [address] Care Team Providers Care Paper Goods Machine Set Up Operator Name Role Phone Unavailable Primary Care Provider Unavailabl e Encounter Details Date Type Department Care Team (Late st Contact Info) Description 10/26/2020 Transcribed Document [facility] [place] [address] [place] [address] ProviderMariela MD [address] [place], [place] [id number] Social History Tobacco Use Types Packs/Day Years [...] : Low risk (0) [place] Interventions : [place] precautions for safety used Peggy Rayo RN - 10/26/2020 3:19 EDT documented in this encounter Plan of Treatment Not on file documented as of this encounter Visit Diagnoses Not on filedocumented in this encounter
--- OUTSIDE RECORDS SUMMARY | 2024-12-21 10:02 | XMS_ITS | Encounter Summary ---
Author Organization [employer] ([place], [place], [place], [place]) Address [address] [place] [address] Care Team Providers Care Accounts Administrator Name Role Phone Unavailable Primary Care Provider Unavailabl e Encounter Details Date Type Department Care Team (Late st Contact Info) Description 10/26/2020 Transcribed Document [facility] [place] [facility] [place] [address] ProviderMariela MD [address] [place] [address] Social History Tobacco Use Types [...] Mariela ProviderMD - 10/26/2020 1:53 PM CDT [place] [phone] SOFIA GILL :1940 Visit Time:10/26/2020 Your Visit [...] follow up appointment Follow-up as instructed Where: [address] [place], [place] [id number]- [facility] (1) Follow Up with Follow up with primary care provider When Within 2 to 3 days Comments Call for follow up appointment. Please follow-up with your primary care provider in 2 to 3 days. Return to ED if you experience new or worsening symptoms. If you do not have a primary care provider the patient resource park maintenance technician can assist you with establishing care and scheduling follow-up. The Patient Resource Camera Operator can be contacted at . Allergies Mobic [...] range between ( 1.0 and 7.0 ) [place] #: 1.11 K/uL -- Normal range between ( 0.24 and 0.82 ) [place] #: 1.06 K/uL -- Normal range between ( 0.04 and 0.54 ) [place] %: 8.8 % -- Normal range between [...] provider. Document Revised: 02/24/2017 Document Reviewed: 02/01/2017 [employer] Patient Education ?? 2020 [employer]. Emergency Awareness and Preventative Care STROKE is [...] Assistance with quitting is available by contacting 3-514-HAUE-NOW. This is a free resource providing counseling, [...] was given the opportunity to ask questions. Patient/Utilities Estimator And Drafter Name: Patient/Utilities Estimator And Drafter Signature: Relationship to Patient: Clinician/Hospital Utilities Estimator And Drafter Signature: Please Provide a Telephone Number Where You Can Be Reached: Is it Permissible To Leave a Message? Date: Electronically signed by Chantal, [facility] Conversion Anthony Copeland at 06/16/2022 8:14 PM CDT documented in this encounter Plan of Treatment Not on file documented as of this encounter Visit Diagnoses Not on filedocumented in this encounter
--- OUTSIDE RECORDS SUMMARY | 2024-12-21 10:02 | XMS_ITS | Encounter Summary ---
Author Organization [employer] ([place], [place], [place], [place]) Address [address] [place] [address] Care Team Providers Care Vice President Integrated Name Role Phone Unavailable Primary Care Provider Unavailabl e Encounter Details Date Type Department Care Team (Late st Contact Info) Description 07/15/2019 Transcribed Document [facility] [place] [facility] [place] [address] ProviderMariela MD [address] [place] [id number] Social History Tobacco Use Types Packs/Day Years [...] 0.9% 100 mL 2 Gram, IV Piggyback, [id number] cyanocobalamin 1,000 mcg tab 5,000 mcg 5 [...] Oral, Q4H fluticasone 0.05% nasal spray 2 [place], Nostrils Both, BID magnesium hydroxide 8% liq [...]
--- OUTSIDE RECORDS SUMMARY | 2024-12-21 10:02 | XMS_ITS | Encounter Summary ---
Author Organization [employer] ([place], [place], [place], [place]) Address [address] [place] [address] Care Team Providers Care Sales Administration Specialist Name Role Phone Unavailable Primary Care Provider Unavailabl e Encounter Details Date Type Department Care Team (Late st Contact Info) Description 07/15/2019 Transcribed Document [facility] [place] [address] ProviderMariela MD [address] [place] [address] Social History Tobacco Use Types Packs/Day [...]
--- OUTSIDE RECORDS SUMMARY | 2024-12-21 10:02 | XMS_ITS | Encounter Summary ---
Author Organization [employer] ([place], [place], [place], [place]) Address [address] [place] [address] Care Team Providers Care Geospatial Specialist Name Role Phone Unavailable Primary Care Provider Unavailabl e Encounter Details Date Type Department Care Team (Late st Contact Info) Description 07/14/2019 Transcribed Document [facility] [place] [facility] [place] [address] ProviderMariela MD [address] [place] [address] Social History Tobacco Use Types Packs/Day Years [...] They are trying to send me to [facility] on Wednesday will follow Notification : RN(Marisela)/PTx CORI NELSON PT - 07/14/2019 14:47 EDT documented in this encounter Plan of Treatment Not on file documented as of this encounter Visit Diagnoses Not on filedocumented in this encounter
--- OUTSIDE RECORDS SUMMARY | 2024-12-21 10:02 | XMS_ITS | Encounter Summary ---
Author Organization [employer] ([place], [place], [place], [place]) Address [address] [place] [address] Care Team Providers Care Novelty Printing Machine Operator Name Role Phone Unavailable Primary Care Provider Unavailabl e Encounter Details Date Type Department Care Team (Late st Contact Info) Description 07/16/2019 Transcribed Document [facility] [place] [address] [place] [address] ProviderMariela MD [address] [place], [place] [id number] Social History Tobacco Use Types Packs/Day Years [...]
--- OUTSIDE RECORDS SUMMARY | 2024-12-21 10:02 | XMS_ITS | Encounter Summary ---
Author Organization [employer] ([place], [place], [place], [place]) Address [address] [place] [address] Care Team Providers Care Grill Associate Name Role Phone Unavailable Primary Care Provider Unavailabl e Encounter Details Date Type Department Care Team (Late st Contact Info) Description 08/27/2020 Transcribed Document [facility] [place] [address] [place] [address] ProviderMariela MD [address] [place] [address] Social History Tobacco Use Types [...] 08/27/2020 18:35 EDT Electronically signed by Chantal [facility] Conversion Quality Assurance Intern Min at 06/16/2022 8:12 PM CDT documented in this encounter Plan of Treatment Not on file documented as of this encounter Visit Diagnoses Not on filedocumented in this encounter
--- OUTSIDE RECORDS SUMMARY | 2024-12-21 10:02 | XMS_ITS | Encounter Summary ---
Author Organization [employer] ([place], [place], [place], [place]) Address [address] [place] [address] Care Team Providers Care Biostatistics Professor Name Role Phone Unavailable Primary Care Provider Unavailabl e Encounter Details Date Type Department Care Team (Late st Contact Info) Description 08/21/2020 Transcribed Document [facility] [place] [facility] [place] [address] ProviderMariela MD [address] [place] [address] Social History Tobacco Use Types [...] lowe Emergency Contact #2 Phone Number : [phone] Emergency Contact #2 Relationship : son Enter Doctors Name : Bainka Gomez Does Patient have PCP Listed? : [...] Discussed with Patient : Discharge transportation, DME, termite helper rehabilitation ADALBERTO BEE RN - 08/21/2020 13:57 [...] wants to go to Rehab and choose [place] [facility] or [place]. Referral faxed via Mike and brooke notified. 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 DME: patient has a wc, showerchair and a walker at home. CM: jevon jon will continue to follow patient TRANS: will need an [facility] to transport patient there. ADALBERTO BEE RN - 08/21/2020 14:03 EDT documented in this encounter Plan of Treatment Not on file documented as of this encounter Visit Diagnoses Not on filedocumented in this encounter
--- OUTSIDE RECORDS SUMMARY | 2024-12-21 10:02 | XMS_ITS | Encounter Summary ---
Author Organization [employer] ([place], [place], [place], [place]) Address [address] [place] [address] Care Team Providers Care Water Reclamation Systems Operator Name Role Phone Unavailable Primary Care Provider Unavailabl e Encounter Details Date Type Department Care Team (Late st Contact Info) Description 08/21/2020 Transcribed Document [facility] [place] [facility] [place] [address] ProviderMariela MD [facility] [place] [address] Social History Tobacco Use [...] PRN Chloraseptic Menthol 1.4% topical spray, 5 Trail, Oral, Q2H, PRN Colace, 100 mg= 1 [...] PRN fluticasone 50 mcg/inh nasal spray, 2 Trail, Nostrils Both, BID, PRN furosemide, 40 mg= [...] (High) 08/20/2020 16:17 EDT Auto RBC BF [id number] /[id number] (High) 08/20/2020 16:17 EDT Neutrophils Body Fluid 62 % (High) 08/20/2020 16:17 EDT Lymphocytes Body Fluid 27 % (Low) 08/20/2020 16:17 EDT Monocytes Body Fluid 9 % 08/20/2020 16:17 EDT Eosinophils Body Fluid 2 % 08/20/2020 16:17 EDT ABO/Rh A POS 08/20/2020 13:06 EDT Antibody Screen (Tube) Negative ABSC 08/20/2020 13:06 EDT Electronically signed by Chantal [facility] Conversion Customer Orders Clerk Cerner at 06/16/2022 8:06 PM CDT documented in this encounter Plan of Treatment Not on file documented as of this encounter Visit Diagnoses Not on filedocumented in this encounter
--- OUTSIDE RECORDS SUMMARY | 2024-12-21 10:03 | XMS_ITS | Encounter Summary ---
Author Organization [employer] ([place], [place], [place], [place]) Address [address] [address] Care Team Providers Care Hl7 Interface Developer Name Role Phone Unavailable Primary Care Provider Unavailabl e Encounter Details Date Type Department Care Team (Late st Contact Info) Description 07/17/2019 Transcribed Document [facility] [place] [facility] [place] [address] ProviderMariela MD [address] [place] [address] Social History Tobacco Use Types [...]
--- OUTSIDE RECORDS SUMMARY | 2024-12-21 10:03 | XMS_ITS | Encounter Summary ---
Author Organization [employer] ([place], [place], [place], [place]) Address [address] [place] [address] Care Team Providers Care Biodiesel Plant Operations Engineer Name Role Phone Unavailable Primary Care Provider Unavailabl e Encounter Details Date Type Department Care Team (Late st Contact Info) Description 08/28/2020 Transcribed Document [facility] [place] [facility] [place] [address] ProviderMariela MD [address] [place], [place] [address] Social History Tobacco Use Types Packs/Day Years [...] 08/28/2020 10:18 EDT Electronically signed by Chantal [facility] Conversion Wound Care Coordinator Cerner at 06/16/2022 8:23 PM CDT documented in this encounter Plan of Treatment Not on file documented as of this encounter Visit Diagnoses Not on filedocumented in this encounter
--- OUTSIDE RECORDS SUMMARY | 2024-12-21 10:03 | XMS_ITS | Encounter Summary ---
Author Organization [employer] ([place], [place], [place], [place]) Address [address] [place] [address] Care Team Providers Care Foam Gun Operator Name Role Phone Unavailable Primary Care Provider Unavailabl e Encounter Details Date Type Department Care Team (Late st Contact Info) Description 07/15/2019 Transcribed Document [facility] [place] Medicine [facility] [place] [address] ProviderMariela MD [address] [place] [address] Social History Tobacco Use Types Packs/Day Years [...]
--- OUTSIDE RECORDS SUMMARY | 2024-12-21 10:03 | XMS_ITS | Encounter Summary ---
Author Organization [employer] ([place], [place], [place], [place]) Address [address] [place] [address] Care Team Providers Care Unit Nurse Name Role Phone Unavailable Primary Care Provider Unavailabl e Encounter Details Date Type Department Care Team (Late st Contact Info) Description 08/21/2020 Transcribed Document [facility] [place] [address] [place] [address] ProviderMariela MD [address] [place] [address] Social History Tobacco Use Types [...]
--- OUTSIDE RECORDS SUMMARY | 2024-12-21 10:03 | XMS_ITS | Encounter Summary ---
Author Organization [employer] ([place], [place], [place], [place]) Address [address] [place] [address] Care Team Providers Care Uc Architect Name Role Phone Unavailable Primary Care Provider Unavailabl e Encounter Details Date Type Department Care Team (Late st Contact Info) Description 08/21/2020 Transcribed Document [facility] [place] [facility] [place] [address] ProviderMariela MD [facility] [place] [address] Social History Tobacco Use [...] MANUEL ODELL YA - 08/23/2020 14:15 EDT Halfway Goals, OT Other LTG Grid [...] 08/23/2020 14:15 EDT Electronically signed by Chantal [facility] Conversion Packing Clerk Cerner at 06/21/2022 2:02 PM CDT documented in this encounter Plan of Treatment Not on file documented as of this encounter Visit Diagnoses Not on filedocumented in this encounter
--- OUTSIDE RECORDS SUMMARY | 2024-12-21 10:03 | XMS_ITS | Encounter Summary ---
Author Organization [employer] ([place], [place], [place], [place]) Address [address] [place] [address] Care Team Providers Care Wind Energy Mechanic Name Role Phone Unavailable Primary Care Provider Unavailabl e Encounter Details Date Type Department Care Team (Late st Contact Info) Description 07/17/2019 Transcribed Document [facility] [place] [facility] [place] [address] ProviderMariela MD [address] [place] [address] Social History Tobacco Use Types Packs/Day [...]
--- OUTSIDE RECORDS SUMMARY | 2024-12-21 10:03 | XMS_ITS | Encounter Summary ---
Author Organization [employer] ([place], [place], [place], [place]) Address [address] [place] [address] Care Team Providers Care Commercial Collector Name Role Phone Unavailable Primary Care Provider Unavailabl e Encounter Details Date Type Department Care Team (Late st Contact Info) Description 08/21/2020 Transcribed Document [facility] [place] Family Medicine Re[facility] [place] [address] ProviderMariela MD Replaced by [facility] [place] [address] Social History Tobacco Use Types [...] goals: keep cast c/d/i, NWB, USE LEG SPEEDBOAT OPERATOR F/U in clinic 2-3 weeks Discharge [...] Daily fluticasone 50 mcg/inh nasal spray 2 [place], PRN, Nostrils Both, BID furosemide 40 mg [...] Cefadroxil 500mg, 1 PO BID 2 weeks Electronically signed by Maureen Cornejo Conversion Technician Support Association Cerner at 06/16/2022 8:02 PM CDT documented in this encounter Plan of Treatment Not on file documented as of this encounter Visit Diagnoses Not on filedocumented in this encounter
--- OUTSIDE RECORDS SUMMARY | 2024-12-21 10:03 | XMS_ITS | Encounter Summary ---
Author Organization [employer] ([place], [place], [place], [place]) Address [address] [place] [address] Care Team Providers Care Regional Branch Manager Name Role Phone Unavailable Primary Care Provider Unavailabl e Encounter Details Date Type Department Care Team (Late st Contact Info) Description 07/17/2019 Transcribed Document [facility] [place] [address] ProviderMariela MD [address] [place] [address] Social History Tobacco Use Types [...] Appt scheduled for tomorrow, 07/18/2019 @ 1415; [facility] round-trip transport scheduled for 1315 pick-up ([id number]). Spoke with Lexy Valdez, they have not yet began the patient's insurance preauth, they will today, and be ready to admit on Wednesday. Dr. Jaffe notified and in agreement. [facility] rescheduled for discharge 07/19/2019 @ 1400 ([id number]). Care Management Note Report : YOANNA ARAUJO RN - 07/14/19 15:41:31 Yoanna Araujo 07/13/2019 1500 - patient has accepted bed offer at [facility], she will be transported on WednesdayJuly 16 at 2pm by [facility] Confirmation # [id number]. She declined the bed offer at [facility] at [facility]. Dr. Jaffe notified of discharge plan. YOANNA ARAUJO RN - 07/13/19 14:37:44 Yoanna Araujo 07/13/2019 1400 received call from Ratna with [facility] offering patient a bed, Received call from Isabelle with [facility] she is looking at patient and needed a current height and weight. Still waiting to see if any other bed offers come through. I also sent referral to [facility]. YOANNA ARAUJO RN - 07/13/19 11:04:03 Yoanna Araujo 07/13/2019 1100 faxed out referral for placement for patient to [facility]hab, [facility]. Awaiting call backs. СВЕТЛАНА WANG - 07/12/19 12:19:17 07/12/[address] [facility] with approval for LTAC services with a request for updated discharge plans and clinical info to support needs if not discharged. Auth#[id number]. Clinical review or discharge summary to be faxed by 07/17/2019. YOANNA ARAUJO RN - 07/12/19 08:39:48 Yoanna Araujo 07/12/2019 0830 - faxed clinical review the [facility] at [phone] to request approval for extended ltac services. Auth#[id number], awaiting approval. YOANNA ARAUJO RN - 06/29/19 [...] health and she has been to the [facility] and [facility] in the past. She has the following equipment at home: wheel chair, walker, cane and shower chair. Her discharge plan is to go to rehab prior to returning home. PCP: Flavia MARQUEZ [address] [id number] Sagger Maker: Dr. Shemar Barger [address] [place] [facility] [id number]. Clemente Del Rio MD - Rheumatology - [address] [place], [place] [phone] Preferences: Home Health: [facility]: no preferences DME: [facility] - [address], [place] [address] Custodial: [facility] facility: no preferences Will continue to monitor patient for anticipated discharge needs YOANNA ARAUJO RN - 06/29/19 08:30:20 Yoanna Araujo 06/29/2019 0830 received fax from [facility] with approval for extended ltac coverage with next clinical review due on 07/12/2019. Auth#[id number]. Will continue to follow for anticipated discharge needs. YOANNA ARAUJO RN - 06/28/19 08:35:06 Yoanna Araujo 06/28/2019 0830 Faxed clinical review to [facility] at to request approval for extended Ltac services. Auth#[id number]. Pending Approval. Documentation Status Complete : Yes СВЕТЛАНА WANG - 07/17/2019 9:01 EDT documented in this encounter Plan of Treatment Not on file documented as of this encounter Visit Diagnoses Not on filedocumented in this encounter
--- OUTSIDE RECORDS SUMMARY | 2024-12-21 10:03 | XMS_ITS | Encounter Summary ---
Author Organization [employer] ([place], [place], [place], [place]) Address [address] [place] [address] Care Team Providers Care Distillery Worker Name Role Phone Unavailable Primary Care Provider Unavailabl e Encounter Details Date Type Department Care Team (Late st Contact Info) Description 07/17/2019 Transcribed Document [facility] [place] [address] [place] [address] ProviderMariela MD [address] [place] [address] Social History Tobacco Use Types Packs/Day Years [...] - 07/18/2019 2:49 EDT Electronically signed by Maureen Cornejo Conversion Nuclear Equipment Research Engineer Cerner at 06/16/2022 8:15 PM CDT documented in this encounter Plan of Treatment Not on file documented as of this encounter Visit Diagnoses Not on filedocumented in this encounter
--- OUTSIDE RECORDS SUMMARY | 2024-12-21 10:03 | XMS_ITS | Encounter Summary ---
Author Organization [employer] ([place], [place], [place], [place]) Address [address] [place] [address] Care Team Providers Care Real Estate Utilization Officer Name Role Phone Unavailable Primary Care Provider Unavailabl e Encounter Details Date Type Department Care Team (Late st Contact Info) Description 08/28/2020 Transcribed Document [facility] [place] [facility] [place] [address] ProviderMariela MD [facility] [place] [address] Social History Tobacco Use Types [...] Referral(s): Service: Organization: Business Address: Phone Number: [facility] at [address], [place], [address] Patient Offered Choice/Affiliations Explained : [...] denied patient for rehab. Isabelle [facility] spoke to patient and she can go Self pay. Patient will be going to [facility]. [facility] set up for 10 am on WednesdayAugust 28. Silva at [facility] notified of patient going to SNF per Esteban pharmacist. Scripts will be faxed over to Pharmacy at [facility]. Case Management will continue to follow patient til discharge. Moni Xavier Rn - 08/28/2020 13:26 EDT Electronically signed by Maureen Cornejo Conversion Program Production Specialist Cerner at 06/16/2022 8:21 PM CDT documented in this encounter Plan of Treatment Not on file documented as of this encounter Visit Diagnoses Not on filedocumented in this encounter
--- OUTSIDE RECORDS SUMMARY | 2024-12-21 10:03 | XMS_ITS | Encounter Summary ---
Author Organization [employer] ([place], [place], [place], [place]) Address [address] [place] [address] Care Team Providers Care Marble Machine Tender Name Role Phone Unavailable Primary Care Provider Unavailabl e Encounter Details Date Type Department Care Team (Late st Contact Info) Description 08/28/2020 Transcribed Document [facility] [place] Family Medicine [address] [place] [address] ProviderMariela MD [address] [place] [address] Social History Tobacco Use Types [...] EDT Electronically signed by Maureen Cornejo Conversion Reservations And Ticketing Agent Min at 06/16/2022 8:16 PM CDT documented in this encounter Plan of Treatment Not on file documented as of this encounter Visit Diagnoses Not on filedocumented in this encounter
--- OUTSIDE RECORDS SUMMARY | 2024-12-21 10:03 | XMS_ITS | Encounter Summary ---
Author Organization [employer] ([place], [place], [place], [place]) Address [address] [place] [address] Care Team Providers Care Global Safety Officer Name Role Phone Unavailable Primary Care Provider Unavailabl e Encounter Details Date Type Department Care Team (Late st Contact Info) Description 08/21/2020 Transcribed Document [facility] [place] Medicine [address] [place] [address] ProviderMariela MD [address] [place] [address] Social History Tobacco Use Types [...]
--- OUTSIDE RECORDS SUMMARY | 2024-12-21 10:03 | XMS_ITS | Encounter Summary ---
Author Organization [employer] ([place], [place], [place], [place]) Address [address] [place] [address] Care Team Providers Care Hat Block Bench Hand Name Role Phone Unavailable Primary Care Provider Unavailabl e Encounter Details Date Type Department Care Team (Late st Contact Info) Description 07/16/2019 Transcribed Document [facility] [place] [facility] [place] [address] ProviderMariela MD [address] [place] [id number] Social History Tobacco Use Types Packs/Day Years [...] 0.9% 100 mL 2 Gram, IV Piggyback, [id number] cyanocobalamin 1,000 mcg tab 5,000 mcg 5 [...] Oral, Q4H fluticasone 0.05% nasal spray 2 [place], Nostrils Both, BID magnesium hydroxide 8% liq [...] as recommended by infectious disease. Wound care. [place] removal if okay with .to halfway facility in a.m. if stable. Orders Order [...]
--- OUTSIDE RECORDS SUMMARY | 2024-12-21 10:03 | XMS_ITS | Encounter Summary ---
Author Organization [employer] ([place], [place], [place], [place]) Address [address] [place] [address] Care Team Providers Care Oil Expeller Name Role Phone Unavailable Primary Care Provider Unavailabl e Encounter Details Date Type Department Care Team (Late st Contact Info) Description 07/16/2019 Transcribed Document [facility] [place] [facility] [place] [address] ProviderMariela MD [address] [place] [address] Social History Tobacco Use Types Packs/Day [...]
--- OUTSIDE RECORDS SUMMARY | 2024-12-21 10:03 | XMS_ITS | Encounter Summary ---
Author Organization [employer] ([place], [place], [place], [place]) Address [address] [place] [address] Care Team Providers Care Right Of Way Manager Name Role Phone Unavailable Primary Care Provider Unavailabl e Encounter Details Date Type Department Care Team (Late st Contact Info) Description 08/21/2020 Transcribed Document [facility] [place] [facility] [place] [address] ProviderMariela MD [address] [place] [address] Social History Tobacco Use Types [...] Policy Numbers : Insurance 1 Health Plan: [facility] MEDICARE ADVANTAGE Policy Number: [id number] Authorization Number: [id number] Insurance Primary Name : [facility] MEDICARE ADVANTAGE Policy Number: [id number] Authorization Status-Primary : Admit approved Reference Number-Primary : [id number] Authorization Number-Primary : [id number] Number of Days Authorized-Primary : 0 Day(s) Authorized Service Begin Date-Primary : 08/20/2020 EDT Authorized Service End Date-Primary : 08/20/2020 EDT Authorization Comments-Primary : Uploaded cont stay clinicals (08/21/20) to [facility] Medicare via [email or web address]. Historical Authorization Comments-Primary : Comment 1: Note on [facility] website:Patient was initially scheduled for [...] AQUINO, RN-Utilization Review 08/19/2020 15:20) Comment 2: [facility] Medicare approved per website for 1 day (TIESHA AQUINO, RN-Utilization Review 08/19/2020 15:14) KARAN WATSON RN-Utilization Review - 08/21/2020 8:36 EDT Electronically signed by Maureen Cornejo Conversion Early Childhood Education Specialist Cerner at 06/16/2022 8:29 PM CDT documented in this encounter Plan of Treatment Not on file documented as of this encounter Visit Diagnoses Not on filedocumented in this encounter
--- OUTSIDE RECORDS SUMMARY | 2024-12-21 10:03 | XMS_ITS | Encounter Summary ---
Author Organization [employer] ([place], [place], [place], [place]) Address [address] [place] [address] Care Team Providers Care Field Marketing Specialist Name Role Phone Unavailable Primary Care Provider Unavailabl e Encounter Details Date Type Department Care Team (Late st Contact Info) Description 10/26/2020 Transcribed Document [facility] [place] [facility] [place] [address] ProviderMariela MD [address] [place] [address] Social History Tobacco Use Types Packs/Day [...]
--- OUTSIDE RECORDS SUMMARY | 2024-12-21 10:03 | XMS_ITS | Encounter Summary ---
Author Organization [employer] ([place], [place], [place], [place]) Address [address] [place] [address] Care Team Providers Care Park Worker Supervisor Name Role Phone Unavailable Primary Care Provider Unavailabl e Encounter Details Date Type Department Care Team (Late st Contact Info) Description 08/21/2020 Transcribed Document [facility] [place] [facility] [place] [address] ProviderMariela MD [address] [place] [address] Social History Tobacco Use Types [...] Historical ProviderMD - 08/21/2020 2:00 AM CDT Front Desk Representative Details Entered On: 08/21/2020 4:12 EDT Performed [...] 08/21/2020 4:12 EDT Electronically signed by [facility] Conversion [place] Maori Cerner at 06/16/2022 8:17 PM CDT documented in this encounter Plan of Treatment Not on file documented as of this encounter Visit Diagnoses Not on filedocumented in this encounter
--- OUTSIDE RECORDS SUMMARY | 2024-12-21 10:03 | XMS_ITS | Encounter Summary ---
Author Organization [employer] ([place], [place], [place], [place]) Address [address] [place] [address] Care Team Providers Care Actuarial Trainee Name Role Phone Unavailable Primary Care Provider Unavailabl e Encounter Details Date Type Department Care Team (Late st Contact Info) Description 08/27/2020 Transcribed Document [facility] [place] [facility] [place] [address] ProviderMariela MD [facility] [place] [address] Social History Tobacco Use Types [...] Historical ProviderMD - 08/27/2020 2:00 AM CDT Sewing Machine Maintenance Mechanic Details Entered On: 08/27/2020 6:49 EDT Performed [...]
--- OUTSIDE RECORDS SUMMARY | 2024-12-21 10:03 | XMS_ITS | Encounter Summary ---
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 [phone] documented in this encounter Plan of Treatment Not on file documented as of this encounter Visit Diagnoses Not on filedocumented in this encounter
--- OUTSIDE RECORDS SUMMARY | 2024-12-21 10:03 | XMS_ITS | Encounter Summary ---
Author Organization [employer] ([place], [place], [place], [place]) Address [address] [place] [address] Care Team Providers Care Associate Medical Director Name Role Phone Unavailable Primary Care Provider Unavailabl e Encounter Details Date Type Department Care Team (Late st Contact Info) Description 08/28/2020 Transcribed Document [facility] [place] [address] [place] [address] ProviderMariela MD [address] [place] [address] Social History Tobacco Use Types [...] EDT Electronically signed by Maureen Cornejo Conversion [employer] Agriculture Teacher Cerner at 06/16/2022 8:22 PM CDT documented in this encounter Plan of Treatment Not on file documented as of this encounter Visit Diagnoses Not on filedocumented in this encounter
--- OUTSIDE RECORDS SUMMARY | 2024-12-21 10:03 | XMS_ITS | Encounter Summary ---
Author Organization [employer] ([place], [place], [place], [place]) Address [address] [place] [address] Care Team Providers Care Labelling Machine Operator Name Role Phone Unavailable Primary Care Provider Unavailabl e Encounter Details Date Type Department Care Team (Late st Contact Info) Description 07/17/2019 Transcribed Document [facility] Radiology [address] [place] [address] Shawanda Barahona MD [address] [id number] Social History Tobacco Use Types Packs/Day Years [...] (JULY 09) L 3.1 (JULY 06) Micro: [facility]: 06/15 [facility] Blood cultures [...] LFT's, fungal superinfection etc to go to [facility] wednesday if orthopedics agrees d/w catalytic case operator documented in this encounter Plan of Treatment Not on file documented as of this encounter Visit Diagnoses Not on filedocumented in this encounter
--- OUTSIDE RECORDS SUMMARY | 2024-12-21 10:03 | XMS_ITS | Encounter Summary ---
Author Organization [employer] ([place], [place], [place], [place]) Address [address] [place] [address] Care Team Providers Care Hedis Coordinator Name Role Phone Unavailable Primary Care Provider Unavailabl e Encounter Details Date Type Department Care Team (Late st Contact Info) Description 07/17/2019 Transcribed Document [facility] [place] [facility] [place] [address] ProviderMariela MD [address] [place] [address] Social History Tobacco Use Types [...] with Dr. Stock for 07/25/2019 @ 1600. [facility] will call Lexy to facilitate this visit. Care Management Note Report : СВЕТЛАНА WANG - 07/17/19 10:32:31 07/17/2019 faxed clinical review the [facility] at [phone] to request approval for extended ltac services. Auth#[id number], awaiting approval. CM/Discharge plan attached to review. СВЕТЛАНА WANG - 07/17/19 09:06:05 07/17/[address] Jaffe's progress note, yahaira may be removed if okay with Dr. Saenz's office. Per our WOCN, Dr. Saenz's office said they need to see her before they make that decision. Appt scheduled for tomorrow, 07/18/2019 @ 1415; [facility] round-trip transport scheduled for 1315 pick-up ([id number]). Spoke with Lexy Valdez, they have not yet began the patient's insurance preauth, they will today, and be ready to admit on Wednesday. Dr. Jaffe notified and in agreement. [facility] rescheduled for discharge 07/19/2019 @ 1400 ([id number]). YOANNA ARAUJO RN - 07/14/19 15:41:31 Yoanna Araujo 07/13/2019 1500 - patient has accepted bed offer at [facility], she will be transported on WednesdayJuly 16 at 2pm by [facility] Confirmation # [id number]. She declined the bed offer at [facility]. Jaffe notified of discharge plan. YOANNA ARAUJO, EDDIE - 07/13/19 14:37:44 Yoanna Araujo 07/13/2019 1400 received call from Ratna with [facility] offering patient a bed, Received call from Isabelle with [facility] she is looking at patient and needed a current height and weight. Still waiting to see if any other bed offers come through. I also sent referral to [facility]. YOANNA ARAUJO, EDDIE - 07/13/19 11:04:03 Yoanna Araujo 07/13/2019 1100 faxed out referral for placement for patient to [facility], [facility] and [facility]. Awaiting call backs. СВЕТЛАНА WANG - 07/12/19 12:19:17 07/12/2019 Fax received from [facility] with approval for LTAC services with a request for updated discharge plans and clinical info to support needs if not discharged. Auth#[id number]. Clinical review or discharge summary to be faxed by 07/17/2019. YOANNA ARAUJO RN - 07/12/19 08:39:48 Yoanna Araujo 07/12/2019 0830 - faxed clinical review the [facility] at [phone] to request approval for extended ltac services. Auth#[id number], awaiting approval. YOANNA ARAUJO RN - 06/29/19 [...] health and she has been to the [place] [facility] and [facility] in the past. She has the following equipment at home: wheel chair, walker, cane and shower chair. Her discharge plan is to go to rehab prior to returning home. PCP: Flavia MARQUEZ [address] [place] [address] Manager Desktop: Dr. Shemar Barger [address] [address] [address] Clemente Del Rio MD - Rheumatology - [address] [place], [place] [id number] Preferences: Home Health: [facility]: no preferences DME: [facility] - [address] [facility] [address] [phone] [facility]cf: [place] [facility] facility: no preferences Will continue to monitor patient for anticipated discharge needs YOANNA ARAUJO RN - 06/29/19 08:30:20 Yoanna Araujo 06/29/2019 0830 received fax from [facility] with approval for extended ltac coverage with next clinical review due on 07/12/2019. Auth#[id number]. Will continue to follow for anticipated discharge needs. YOANNA ARAUJO RN - 06/28/19 08:35:06 Yoanna Araujo 06/28/2019 0830 Faxed clinical review to [facility] at to request approval for extended Ltac services. Auth#[id number]. Pending Approval. Documentation Status Complete : Yes СВЕТЛАНА WANG - 07/17/2019 11:29 EDT documented in this encounter Plan of Treatment Not on file documented as of this encounter Visit Diagnoses Not on filedocumented in this encounter
--- OUTSIDE RECORDS SUMMARY | 2024-12-21 10:03 | XMS_ITS | Encounter Summary ---
Author Organization [employer] ([place], [place], [place], [place]) Address [address] [place] [address] Care Team Providers Care Private Sector Executive Name Role Phone Unavailable Primary Care Provider Unavailabl e Encounter Details Date Type Department Care Team (Late st Contact Info) Description 08/21/2020 Transcribed Document [facility] [place] [facility] [place] [address] ProviderMariela MD [address] [place] [address] Social History Tobacco Use Types [...]
--- OUTSIDE RECORDS SUMMARY | 2024-12-21 10:03 | XMS_ITS | Encounter Summary ---
Author Organization [employer] ([place], [place], [place], [place]) Address [address] [place] [address] Care Team Providers Care Camp Head Counselor Name Role Phone Unavailable Primary Care Provider Unavailabl e Encounter Details Date Type Department Care Team (Late st Contact Info) Description 08/21/2020 Transcribed Document [facility] [place] [facility] [place] [address] ProviderMariela MD [address] [place] [address] Social History Tobacco Use Types [...]
--- OUTSIDE RECORDS SUMMARY | 2024-12-21 10:03 | XMS_ITS | Encounter Summary ---
Author Organization [employer] ([place], [place], [place], [place]) [place] [address] Care Team Providers Care Soils Technician Name Role Phone Unavailable Primary Care Provider Unavailabl e Encounter Details Date Type Department Care Team (Late st Contact Info) Description 08/21/2020 Transcribed Document [facility] [place] [facility] [place] [address] ProviderMariela MD [facility] [place] [address] Social History Tobacco Use Types [...] 08/21/2020 15:28 EDT Electronically signed by Chantal [facility] Conversion Gear Finisher Cerner at 06/16/2022 8:11 PM CDT documented in this encounter Plan of Treatment Not on file documented as of this encounter Visit Diagnoses Not on filedocumented in this encounter
--- OUTSIDE RECORDS SUMMARY | 2024-12-21 10:03 | XMS_ITS | Encounter Summary ---
Author Organization [employer] ([place], [place], [place], [place]) Address [address] [place] [address] Care Team Providers Care Shipper Name Role Phone Unavailable Primary Care Provider Unavailabl e Encounter Details Date Type Department Care Team (Late st Contact Info) Description 08/21/2020 Transcribed Document [facility] [place] [facility] [place] [address] ProviderMariela MD [address], [...]
--- OUTSIDE RECORDS SUMMARY | 2024-12-21 10:03 | XMS_ITS | Encounter Summary ---
Author Organization [employer] ([place], [place], [place], [place]) Address [address] [place] [address] Care Team Providers Care Airport Electrician Name Role Phone Unavailable Primary Care Provider Unavailabl e Encounter Details Date Type Department Care Team (Late st Contact Info) Description 07/17/2019 Transcribed Document [facility] [place] [facility] [place] [address] ProviderMariela MD [address] [place] [id number] Social History Tobacco Use Types Packs/Day Years [...] 0.9% 100 mL 2 Gram, IV Piggyback, [id number] cyanocobalamin 1,000 mcg tab 5,000 mcg 5 [...] Oral, Q4H fluticasone 0.05% nasal spray 2 [place], Nostrils Both, BID magnesium hydroxide 8% liq [...] % 21.2 % Lymph # 1.73 x10(3)/uL [place] % 9.7 % HI [place] # 0.79 K/uL Eos % 5.8 % [...]
--- OUTSIDE RECORDS SUMMARY | 2024-12-21 10:03 | XMS_ITS | Encounter Summary ---
Author Organization [employer] ([place], [place], [place], [place]) Address [address] [place] [address] Care Team Providers Care Hand Alterations Tailor Name Role Phone Unavailable Primary Care Provider Unavailabl e Encounter Details Date Type Department Care Team (Late st Contact Info) Description 08/28/2020 Transcribed Document [facility] [place] [facility] [place] [address] ProviderMariela MD [facility] [place] [address] Social History Tobacco Use Types [...] On: 08/28/2020 13:49 EDT by JAMES IBANEZ PACKAGING INSPECTOR Discharge Summary Reason for Discharge : Discharged [...] KIARA SIMON, PT - 08/28/2020 15:05 EDT Health Science Instructor Goals Other PT LTG Grid Goal #1 [...] for bed MAX Ax2 08/26 JAMES IBANEZ, PACKAGING INSPECTOR - 08/28/2020 13:49 EDT JAMES IBANEZ, PACKAGING INSPECTOR - 08/28/2020 13:49 EDT JAMES IBANEZ, PACKAGING INSPECTOR - 08/28/2020 13:49 EDT Electronically signed by Maureen Cornejo Conversion Apprentice Machinist Outside Cerner at 06/16/2022 8:12 PM CDT documented in this encounter Plan of Treatment Not on file documented as of this encounter Visit Diagnoses Not on filedocumented in this encounter
--- OUTSIDE RECORDS SUMMARY | 2024-12-21 10:03 | XMS_ITS | Encounter Summary ---
Author Organization [employer] ([place], [place], [place], [place]) Address [address] [place] [address] Care Team Providers Care Lecturer In Marketing Name Role Phone Unavailable Primary Care Provider Unavailabl e Encounter Details Date Type Department Care Team (Late st Contact Info) Description 08/27/2020 Transcribed Document [facility] [place] [facility] [place] [address] ProviderMariela MD [facility] [place] [address] Social History Tobacco Use Types [...]
--- OUTSIDE RECORDS SUMMARY | 2024-12-21 10:03 | XMS_ITS | Encounter Summary ---
Author Organization [employer] ([place], [place], [place], [place]) Address [address] [place] [address] Care Team Providers Care Technical Service Specialist Name Role Phone Unavailable Primary Care Provider Unavailabl e Encounter Details Date Type Department Care Team (Late st Contact Info) Description 08/21/2020 Transcribed Document [facility] [place] [facility] [place] [address] ProviderMariela MD [address] [place] [address] Social History Tobacco Use Types [...]
--- OUTSIDE RECORDS SUMMARY | 2024-12-21 10:04 | XMS_ITS | Encounter Summary ---
Author Organization [employer] ([place], [place], [place], [place]) Address [address] [address] Care Team Providers Care Fish Hatchery Assistant Name Role Phone Unavailable Primary Care Provider Unavailabl e Encounter Details Date Type Department Care Team (Late st Contact Info) Description 07/19/2019 Transcribed Document [facility] [place] [facility] [place] [address] ProviderMariela MD [address] [place] [address] Social History Tobacco Use Types [...] other medicines or supplements? Many prescription and fidk-bqz-vzvrfdv medicines can interfere with warfarin. Talk with your health care provider or your pharmacist before starting or stopping any new medicines. This includes zael-sfb-zwhxghr vitamins, dietary supplements, herbal medicines, and pain medicines. Your warfarin dosage may need to be adjusted. ??? Some common hjiy-sol-hnlirmj medicines that may increase the risk of [...] that you work with a diet and nutritionalist (dietitian). ??? Vitamin K decreases the effect [...] cooked. ??? Collards, raw or cooked. ??? American chard, raw or cooked. ??? Mustard greens, raw or cooked. ??? Turnip greens, raw or cooked. ??? Parsley, raw. ??? Broccoli, cooked. ??? Noodles, eggs, and spinach, enriched. ??? [place] sprouts, raw or cooked. ??? Beet greens, [...] diet. ??? You start or stop any ogzm-hno-muqrxiw medicine, prescription medicine, or dietary supplement. ??? [...] 02/15/2006 Document Revised: 06/21/2017 Document Reviewed: 05/13/2016 Visiogen Interactive Patient Education ? 2019 Vis[employer]ogen Inc. Hypertension, Adult High blood pressure (hypertension) [...] provider. This is important. Medicines ??? Take ihsf-aap-jkuamwz and prescription medicines only as told by [...] 02/15/2006 Document Revised: 10/26/2018 Document Reviewed: 10/26/2018 Visiogen Interactive Patient Education ? 2019 Vis[employer] Inc. How to Use a Knee Immobilizer [...]
--- OUTSIDE RECORDS SUMMARY | 2024-12-21 10:04 | XMS_ITS | Encounter Summary ---
Author Organization [employer] ([place], [place], [place], [place]) Address [address] [place] [address] Care Team Providers Care Chief Operator Reformer Name Role Phone Unavailable Primary Care Provider Unavailabl e Encounter Details Date Type Department Care Team (Late st Contact Info) Description 07/19/2019 Transcribed Document [facility] [place] [facility] [place] [address] ProviderMariela MD [address] [place] [address] Social History Tobacco Use Types [...] 02/01/2017 Elsevier Interactive Patient Education ? 2019 [employer]. documented in this encounter Plan of Treatment Not on file documented as of this encounter Visit Diagnoses Not on filedocumented in this encounter
--- OUTSIDE RECORDS SUMMARY | 2024-12-21 10:04 | XMS_ITS | Encounter Summary ---
Author Organization [employer] ([place], [place], [place], [place]) Address [address] [place] [address] Care Team Providers Care Hospital Intern Name Role Phone Unavailable Primary Care Provider Unavailabl e Encounter Details Date Type Department Care Team (Late st Contact Info) Description 07/19/2019 Transcribed Document [facility] [place] [facility] [place] [address] ProviderMariela MD [facility] [place] [address] Social History Tobacco Use Types Packs/Day Years [...] 07/19/2019 11:44 EDT Electronically signed by Chantal [facility] Conversion Major Appliance Assembly Supervisor Cerner at 06/16/2022 8:13 PM CDT documented in this encounter Plan of Treatment Not on file documented as of this encounter Visit Diagnoses Not on filedocumented in this encounter
--- OUTSIDE RECORDS SUMMARY | 2024-12-21 10:04 | XMS_ITS | Encounter Summary ---
Author Organization [employer] ([place], [place], [place], [place]) Address [address] [place] [address] Care Team Providers Care Gas Fitter Apprentice Name Role Phone Unavailable Primary Care Provider Unavailabl e Encounter Details Date Type Department Care Team (Late st Contact Info) Description 10/26/2020 Transcribed Document [facility] [place] [address] [place] [address] ProviderMariela MD [address] [place] [address] Social History Tobacco Use Types [...] 14:18 EDT ED Description of Event : [place] called and handoff report given to [place] staff Nancy Sood RN-PATIENT CARE BEDSIDE NON-EXEMPT - 10/26/2020 14:18 EDT Electronically signed by Maureen Cornejo Conversion Acute Care Registered Nurse Cerner at 06/16/2022 8:10 PM CDT documented in this encounter Plan of Treatment Not on file documented as of this encounter Visit Diagnoses Not on filedocumented in this encounter
--- OUTSIDE RECORDS SUMMARY | 2024-12-21 10:04 | XMS_ITS | Encounter Summary ---
Author Organization [employer] ([place], [place], [place], [place]) Address [address] [place] [address] Care Team Providers Care Marketing Ambassador Name Role Phone Unavailable Primary Care Provider Unavailabl e Encounter Details Date Type Department Care Team (Late st Contact Info) Description 08/28/2020 Transcribed Document [facility] [place] [facility] [place] [address] ProviderMariela MD [address] [place] [address] Social History Tobacco Use [...] Gates MD - 08/28/2020 9:17 [place] [address] SOFIA GILL :1940 Visit Time:08/20/2020 Your Visit [...] may reduce GI upset. Rehabilitation: [facility] for report Discharge Summary: fax to Transportation: [facility] will picker machine operator for 10am September 27. Discharge Follow Up Instructions: Follow-up with Dr. Saenz as scheduled, Order Comment: Follow-up with PCP as scheduled or PRN Activity: Per Dr. Hameed recommendations, Discharge Activity: Other (use Special Instructions) Diet: Discharge Diet: Resume usual diet as tolerated Follow-Up Appointments Follow Up with SOLOMON MCCRACKEN PA-C When 09/09/2020 10:00 AM EDT Where: [address] [facility] [address] [place] [address]- Medications What How Much When [...] (fluticasone 50 mcg/ inh nasal spray) 2 Mobile(s) Nostrils Both Two Times A Day as [...] or 4 frozen water bottles in the [facility]. ??? Continue to use Incentive [...] Barley. Bulgur wheat. Millet. Bran muffins. Popcorn. [place] wafer crackers. ??? Vegetables Sweet potatoes. Spinach. Kale. Artichokes. Cabbage. Broccoli. Green peas. Carrots. Squash. ??? Fruits Berries. Pears. Apples. Oranges. Avocados. Prunes and raisins. Dried figs. ??? Meats and Other Protein Sources [place], kidney, call, and soy beans. Split peas. [...] gray has 11 g of protein. ??? Berkey seeds ??? 1 oz has 5.5 g [...] floor. ??? Place frequently used items in eqdf-ee-dddqp places ??? Keep electrical cables out of [...] ? Using the bathroom. ? Using household inventory control assistant or toxic chemicals. ? Touching or taking [...] oh fen) Actamin, Anacin AF, Aurophen, Bromo [place], Children's Tylenol, Mapap, M-Pap, Pharbetol, Silapap Childrens, [...] is a pain reliever and a fever slag worker. There are many brands and forms of [...] may report side effects to FDA at 2-920-HAP-4542. What other drugs will affect acetaminophen? Other drugs may affect acetaminophen, including prescription and pcbu-ihv-hckxmoh medicines, vitamins, and herbal products. Tell your [...] to ensure that the information provided by [employer]. ('[employer]') is accurate, up-to-date, and complete, but no guarantee is made to that effect. Drug information contained herein may be time sensitive. [employer] information has been compiled for use by healthcare practitioners and consumers in the [place] and therefore [employer] does not warrant that uses outside of the [place] are appropriate, unless specifically indicated otherwise. [employer] drug information does not endorse drugs, diagnose patients or recommend therapy. [employer] drug information is an informational resource designed [...] effective or appropriate for any given patient. [employer] does not assume any responsibility for any aspect of healthcare administered with the aid of information [employer] provides. The information contained herein is not intended to cover all possible uses, directions, precautions, warnings, drug interactions, allergic reactions, or adverse effects. If you have questions about the drugs you are taking, check with your doctor, nurse or pharmacist. Copyright 8300-3391 [employer]. Version: 21.04. Revision Date: 10/06/2019. aspirin (oral) [...] What is aspirin? Aspirin is a salicylate (of-TOV-cm-ate) that is used to treat pain, and [...] may report side effects to FDA at 1-691-MMP-0554. What other drugs will affect aspirin? Ask [...] drugs may affect aspirin, including prescription and zede-obz-lzgqnio medicines, vitamins, and herbal products. Not all [...] to ensure that the information provided by [employer]. ('[employer]') is accurate, up-to-date, and complete, but no guarantee is made to that effect. Drug information contained herein may be time sensitive. [employer] information has been compiled for use by healthcare practitioners and consumers in the [place] and therefore [employer] does not warrant that uses outside of the [place] are appropriate, unless specifically indicated otherwise. [employer] drug information does not endorse drugs, diagnose patients or recommend therapy. [employer] drug information is an informational resource designed [...] effective or appropriate for any given patient. [employer] does not assume any responsibility for any aspect of healthcare administered with the aid of information [employer] provides. The information contained herein is not intended to cover all possible uses, directions, precautions, warnings, drug interactions, allergic reactions, or adverse effects. If you have questions about the drugs you are taking, check with your doctor, nurse or pharmacist. Copyright 6604-3238 [employer]. Version: 16.02. Revision Date: 10/18/2019. gabapentin ([place] [...] are a day sleeper or work a fruit culler. Some people have thoughts about suicide while [...] may report side effects to FDA at 4-828-TWD-3969. What other drugs will affect gabapentin? Using gabapentin with other drugs that make you drowsy or slow your breathing can cause dangerous side effects or . Ask your doctor before using opioid medication, a sleeping pill, cold or allergy medicine, a muscle relaxer, or medicine for anxiety or seizures. Other drugs may affect gabapentin, including prescription and gviy-tuf-bqcubha medicines, vitamins, and herbal products. Tell your [...] to ensure that the information provided by [employer]. ('Multum') is accurate, up-to-date, and complete, but no guarantee is made to that effect. Drug information contained herein may be time sensitive. [employer] information has been compiled for use by healthcare practitioners and consumers in the [place] and therefore [employer] does not warrant that uses outside of the [place] are appropriate, unless specifically indicated otherwise. [employer]'s drug information does not endorse drugs, diagnose patients or recommend therapy. [employer] drug information is an informational resource designed [...] effective or appropriate for any given patient. [employer] does not assume any responsibility for any aspect of healthcare administered with the aid of information [employer] provides. The information contained herein is not intended to cover all possible uses, directions, precautions, warnings, drug interactions, allergic reactions, or adverse effects. If you have questions about the drugs you are taking, check with your doctor, nurse or pharmacist. Copyright 0698-3558 [employer]. Version: 17.01. Revision Date: 03/26/2020. oxycodone (ox [...] The extended-release form of oxycodone is for dlnpge-uue-xskyf treatment of pain and should not be [...] against the law. Stop taking all other ywjqil-szz-hndvt opioid pain medicines when you start taking [...] may report side effects to FDA at 9-907-ZVV-3215. What other drugs will affect oxycodone? You [...] may affect oxycodone. This includes prescription and wkny-dvz-xhbpqgz medicines, vitamins, and herbal products. Not all [...] to ensure that the information provided by [employer]. ('Multum') is accurate, up-to-date, and complete, but no guarantee is made to that effect. Drug information contained herein may be time sensitive. [employer] information has been compiled for use by healthcare practitioners and consumers in the [place] and therefore [employer] does not warrant that uses outside of the [place] are appropriate, unless specifically indicated otherwise. [employer] drug information does not endorse drugs, diagnose patients or recommend therapy. [employer] drug information is an informational resource designed [...] effective or appropriate for any given patient. [employer] does not assume any responsibility for any aspect of healthcare administered with the aid of information [employer] provides. The information contained herein is not intended to cover all possible uses, directions, precautions, warnings, drug interactions, allergic reactions, or adverse effects. If you have questions about the drugs you are taking, check with your doctor, nurse or pharmacist. Copyright 2091-3077 [employer]. Version: 14.02. Revision Date: 03/28/2020. oxycodone (ox [...] The extended-release form of oxycodone is for vfvgoh-etw-jdqee treatment of pain and should not be [...] against the law. Stop taking all other ublwjt-jhs-jsbtr opioid pain medicines when you start taking [...] occur. Electronically signed by Chantal, Maureen Conversion Systems Integration Engineer Cerner at 06/16/2022 8:08 PM CDT documented in this encounter Plan of Treatment Not on file documented as of this encounter Visit Diagnoses Not on filedocumented in this encounter
--- OUTSIDE RECORDS SUMMARY | 2024-12-21 10:04 | XMS_ITS | Encounter Summary ---
Author Organization [employer] ([place], [place], [place], [place]) Address [address] [place] [address] Care Team Providers Care Bilingual Interpreter Name Role Phone Unavailable Primary Care Provider Unavailabl e Encounter Details Date Type Department Care Team (Late st Contact Info) Description 07/09/2019 Transcribed Document [facility] [place] [address] [place] [address] ProviderMariela MD [address] [place] [address] Social History Tobacco Use Types [...]
--- OUTSIDE RECORDS SUMMARY | 2024-12-21 10:04 | XMS_ITS | Encounter Summary ---
Author Organization [employer] ([place], [place], [place], [place]) Address [address] [place] [address] Care Team Providers Care Iap Displays Analyst Name Role Phone Unavailable Primary Care Provider Unavailabl e Encounter Details Date Type Department Care Team (Late st Contact Info) Description 10/26/2020 Transcribed Document [facility] [place] [facility] [place] [address] ProviderMariela MD [facility] [place] [address] Social History Tobacco Use Types [...] & time 10/26/2020 01:45:00, Voice recognition / legger press operator technology used for some documentation in this [...] Source Stated Height Entry Format Ceci Height/Length, TAJIK (ft) 5 ft Height/Length TAJIK 0 Inch CLINICALHEIGHT 152.4 cm [place] Body Weight 49.16 kg Weight Source, ED Critical estimated dosing weight Weight Entry Format [place] Weight Estonian lb 200 lb CLINICALWEIGHT 90.91 kg Body [...] Butts is on-call for [facility]. Discussed case he recommends knee [...] a primary care provider the patient resource leak operator paraffin plant can assist you with establishing care and scheduling follow-up. The Patient Resource Bus Boy can be contacted at .; ; NIMO [...]
--- OUTSIDE RECORDS SUMMARY | 2024-12-21 10:04 | XMS_ITS | Encounter Summary ---
Author Organization [employer] ([place], [place], [place], [place]) Address [address] [place] [address] Care Team Providers Care Concrete Gun Operator Name Role Phone Unavailable Primary Care Provider Unavailabl e Encounter Details Date Type Department Care Team (Late st Contact Info) Description 08/28/2020 Transcribed Document [facility] [place] Family Medicine Counts include 234 beds at the [facility] [place] [address] ProviderMariela MD Counts include [address] beds at the [facility] [place] [address] Social History Tobacco Use [...] Historical ProviderMD - 08/28/2020 2:00 AM CDT Financial Management Consultant Details Entered On: 08/28/2020 2:20 EDT Performed [...]
--- OUTSIDE RECORDS SUMMARY | 2024-12-21 10:04 | XMS_ITS | Encounter Summary ---
Author Organization [employer] ([place], [place], [place], [place]) Address [address] [place] [address] Care Team Providers Care Crown Assembly Machine Operator Name Role Phone Unavailable Primary Care Provider Unavailabl e Encounter Details Date Type Department Care Team (Late st Contact Info) Description 07/08/2019 Transcribed Document [facility] [place] Medicine [address] [place] [address] ProviderMariela MD [address] [place], [place] [id number] Social History Tobacco Use Types Packs/Day Years [...] TOR ADAMES RN - 07/08/2019 16:31 EDT Electronically signed by Maureen Cornejo Conversion Electromedical Equipment Technician Mni at 06/16/2022 8:30 PM CDT documented in this encounter Plan of Treatment Not on file documented as of this encounter Visit Diagnoses Not on filedocumented in this encounter
--- OUTSIDE RECORDS SUMMARY | 2024-12-21 10:04 | XMS_ITS | Encounter Summary ---
Author Organization [employer] ([place], [place], [place], [place]) Address [address] [place] [address] Care Team Providers Care Meal Packer Name Role Phone Unavailable Primary Care Provider Unavailabl e Encounter Details Date Type Department Care Team (Late st Contact Info) Description 09/03/2020 Transcribed Document [facility] [place] [facility] [place] [address] ProviderMariela MD [address] [place] [address] Social History Tobacco Use Types [...] Health Plan: [facility] MED[facility]ARE [facility]VANTAGE Policy Number: [id number] Authorization Number: [id number] Insurance Primary Name : [facility] MED[facility]VANTAGE Policy Number: [id number] Authorization Status-Primary : Admit approved Reference Number-Primary : [id number] Authorization Number-Primary : [id number] Number of Days Authorized-Primary : 7 Day(s) Authorized Service Begin Date-Primary : 08/20/2020 EDT Authorized Service End Date-Primary : 08/27/2020 EDT Authorization Comments-Primary : [facility] all days covered per website Historical Authorization Comments-Primary : Comment 1: Uploaded cont stay clinicals (08/22-08/26/20) to [employer] via [employer]. (KARAN WATSON RN-Utilization Review 08/26/2020 10:04) Comment 2: Uploaded cont stay clinicals (08/21/20) to [employer] via [employer]. (KARAN WATSON RN-Utilization Review 08/21/2020 08:36) Comment 3: Note on [facility] website:Patient was initially scheduled for Right Patellar [...]
--- OUTSIDE RECORDS SUMMARY | 2024-12-21 10:04 | XMS_ITS | Encounter Summary ---
Author Organization [employer] ([place], [place], [place], [place]) Address [address] [place] [address] Care Team Providers Care Intelligence Officer Basic Name Role Phone Unavailable Primary Care Provider Unavailabl e Encounter Details Date Type Department Care Team (Late st Contact Info) Description 10/26/2020 Transcribed Document [facility] [place] Family Medicine [facility] [place] [address] ProviderMariela MD [place] [address] Social History Tobacco Use Types [...]
--- OUTSIDE RECORDS SUMMARY | 2024-12-21 10:04 | XMS_ITS | Encounter Summary ---
Author Organization [employer] ([place], [place], [place], [place]) Address [address] [place] [address] Care Team Providers Care Organization Development Consultant Name Role Phone Unavailable Primary Care Provider Unavailabl e Encounter Details Date Type Department Care Team (Late st Contact Info) Description 08/23/2020 Transcribed Document [facility] [place] Family Medicine [address] [place] [address] ProviderMariela MD [address] [place] [id number] Social History Tobacco Use Types Packs/Day Years [...] Rayna Carrizales Rn - 08/23/2020 23:35 EDT Electronically signed by Nikunj Cornejo Conversion Artificial Breeding Distributor Cerner at 06/16/2022 8:03 PM CDT documented in this encounter Plan of Treatment Not on file documented as of this encounter Visit Diagnoses Not on filedocumented in this encounter
--- OUTSIDE RECORDS SUMMARY | 2024-12-21 10:04 | XMS_ITS | Encounter Summary ---
Author Organization [employer] ([place], [place], [place], [place]) Address [address] [place] [address] Care Team Providers Care Human Factors Scientist Name Role Phone Unavailable Primary Care Provider Unavailabl e Encounter Details Date Type Department Care Team (Late st Contact Info) Description 07/19/[address] [facility] [place] [facility] [place] [address] ProviderMariela MD [address] [place] [address] Social History Tobacco Use Types Packs/Day [...] 07/19/2019 11:43 AM CDT CareSet Assessment Discharge, [facility] Entered On: 07/19/2019 14:37 EDT Performed On: [...]
--- OUTSIDE RECORDS SUMMARY | 2024-12-21 10:04 | XMS_ITS | Encounter Summary ---
Author Organization [employer] ([place], [place], [place], [place]) Address [address] [place] [address] Care Team Providers Care Service Technician Copier Name Role Phone Unavailable Primary Care Provider Unavailabl e Encounter Details Date Type Department Care Team (Late st Contact Info) Description 08/23/2020 Transcribed Document [facility] [place] [facility] [place] [address] ProviderMariela MD [address] [place] [address] Social History Tobacco Use [...] Aspir 81 Oral, Daily [ x ] Babak filter 08/20 Consult note History :[place] filter. Present Treatments Results and Location in Medical Record [ x ] Monitoring post op 08/20 monitor pt on postop med surg floor [ x ] ASA order MD orders 08/20 MAR Aspirin 81mg, Oral BID CDS/Battery Builder Signature: Charo Blancas ____ Phone #: [phone] Date/Time: 08/23/2020 ____ This is a permanent part of the Medical Record Q6 [address] [facility] [facility] Updated: documented in this encounter Plan of Treatment Not on file documented as of this encounter Visit Diagnoses Not on filedocumented in this encounter
--- OUTSIDE RECORDS SUMMARY | 2024-12-21 10:04 | XMS_ITS | Encounter Summary ---
Author Organization [employer] ([place], [place], [place], [place]) Address [address] [place] [address] Care Team Providers Care Hot Plate Plywood Press Operator Name Role Phone Unavailable Primary Care Provider Unavailabl e Encounter Details Date Type Department Care Team (Late st Contact Info) Description 10/26/2020 Transcribed Document [facility] [place] Family Medicine [address] [place] [address] ProviderMariela MD [address] [place] [id number] Social History Tobacco Use Types Packs/Day Years [...] Historical ProviderMD - 10/26/2020 2:06 AM CDT [place] Suicide Severity Rating Scale (C-SSRS) Entered On: 10/26/2020 3:22 EDT Performed On: 10/26/2020 3:19 EDT by Peggy Rayo RN [place] Suicide Severity Rating Scale (C-SSRS) CSSRS Past Month Wish to be : No CSSRS Past Month Suicidal Thoughts : No CSSRS Lifetime Suicide Behavior : No Suicide Severity Rating Score : 0 Suicide Severity Rating : No Additional Care Required at this time Peggy Rayo RN - 10/26/2020 3:19 EDT Electronically signed by Chantal [facility] Conversion Pressure Control Supervisor Cerner at 06/16/2022 8:06 PM CDT documented in this encounter Plan of Treatment Not on file documented as of this encounter Visit Diagnoses Not on filedocumented in this encounter
--- OUTSIDE RECORDS SUMMARY | 2024-12-21 10:04 | XMS_ITS | Encounter Summary ---
Author Organization [employer] ([place], [place], [place], [place]) Address [address] [place] [address] Care Team Providers Care Customer Service Representative Teacher Name Role Phone Unavailable Primary Care Provider Unavailabl e Encounter Details Date Type Department Care Team (Late st Contact Info) Description 08/22/2020 Transcribed Document [facility] [place] [facility] [place] [address] ProviderMariela MD [address] [place] [address] Social History Tobacco Use Types [...] form. Electronically signed by Maureen Cornejo Conversion Program And Research Coordinator Cerner at 06/16/2022 8:29 PM CDT documented in this encounter Plan of Treatment Not on file documented as of this encounter Visit Diagnoses Not on filedocumented in this encounter
--- OUTSIDE RECORDS SUMMARY | 2024-12-21 10:04 | XMS_ITS | Encounter Summary ---
Author Organization [employer] ([place], [place], [place], [place]) Address [address] [place] [address] Care Team Providers Care Easement Man Name Role Phone Unavailable Primary Care Provider Unavailabl e Encounter Details Date Type Department Care Team (Late st Contact Info) Description 07/19/2019 Transcribed Document [facility] [place] [address] [place] [address] ProviderMariela MD [address], [place] [id number] Social History Tobacco Use Types Packs/Day Years [...] Historical ProviderMD - 07/19/2019 2:00 AM CDT Floor Assembler Details Entered On: 07/19/2019 2:02 EDT Performed [...] 07/19/2019 2:01 EDT Electronically signed by Chantal [facility] Conversion General Manager Cerner at 06/16/2022 8:17 PM CDT documented in this encounter Plan of Treatment Not on file documented as of this encounter Visit Diagnoses Not on filedocumented in this encounter
--- OUTSIDE RECORDS SUMMARY | 2024-12-21 10:04 | XMS_ITS | Encounter Summary ---
Author Organization [employer] ([place], [place], [place], [place]) Address [address] [place] [address] Care Team Providers Care Sales Rep Name Role Phone Unavailable Primary Care Provider Unavailabl e Encounter Details Date Type Department Care Team (Late st Contact Info) Description 08/27/2020 Transcribed Document [facility] [place] Family Medicine [facility] [place] [address] ProviderMariela MD [facility] [place] [address] Social History Tobacco Use Types [...] form. Electronically signed by Chantal, Maureen Conversion Director Of Online Education Cerner at 06/16/2022 8:28 PM CDT documented in this encounter Plan of Treatment Not on file documented as of this encounter Visit Diagnoses Not on filedocumented in this encounter
--- OUTSIDE RECORDS SUMMARY | 2024-12-21 10:04 | XMS_ITS | Encounter Summary ---
Author Organization [employer] ([place], [place], [place], [place]) Address [address] [place] [address] Care Team Providers Care Engine Head Repairer Name Role Phone Unavailable Primary Care Provider Unavailabl e Encounter Details Date Type Department Care Team (Late st Contact Info) Description 10/26/2020 Transcribed Document [facility] [place] [facility] [place] [address] ProviderMariela MD [address] [place] [address] Social History Tobacco Use Types [...] 10:28 AM CDT Electronically signed by Chantal [facility] Conversion Honing Machine Set Up Operator Tool Min at 06/16/2022 8:10 PM CDT documented in this encounter Plan of Treatment Not on file documented as of this encounter Visit Diagnoses Not on filedocumented in this encounter
--- OUTSIDE RECORDS SUMMARY | 2024-12-21 10:04 | XMS_ITS | Encounter Summary ---
Author Organization [employer] ([place], [place], [place], [place]) Address [address] [place] [address] Care Team Providers Care Paint Brush Maker Name Role Phone Unavailable Primary Care Provider Unavailabl e Encounter Details Date Type Department Care Team (Late st Contact Info) Description 06/24/2019 Transcribed Document [facility] [place] [address] [place] [address] ProviderMariela MD [address] [place], [place] [id number] Social History Tobacco Use Types Packs/Day Years [...]
--- OUTSIDE RECORDS SUMMARY | 2024-12-21 10:04 | XMS_ITS | Encounter Summary ---
Author Organization [employer] ([place], [place], [place], [place]) Address [address] [place] [address] Care Team Providers Care Electrical Line Mechanic Name Role Phone Unavailable Primary Care Provider Unavailabl e Encounter Details Date Type Department Care Team (Late st Contact Info) Description 06/24/2019 Transcribed Document [facility] [place] [facility] [place] [address] ProviderMariela MD [address] [place] [address] Social History Tobacco Use Types [...] - Medical Enoxaparin 40 mg, SubCutaneous, Inj, [id number], Start 06/24/19 9:00:00 EDT, Stop 06/25/19 9:00:00 [...] PRN Chloraseptic Menthol 1.4% topical spray, 1 Chazy, Oral, Q2H, PRN cloNIDine, 0.1 mg= 1 [...] Daily fluticasone 50 mcg/inh nasal spray, 2 Chazy, Nostrils Both, BID, PRN gabapentin, 300 mg= 1 Cap, Oral, At Bedtime lisinopril, 10 mg= 1 Tab, Oral, Daily loratadine, 10 mg= 1 Tab, Oral, Daily Lovenox, 40 mg= 0.4 mL, SubCutaneous, [id number] magnesium sulfate, 2 Gram= 50 mL, IV [...] Lymph # 3.08 K/uL 06/24/2019 03:39 EDT [place] % 7.4 % 06/24/2019 03:39 EDT [place] # 1.17 K/uL (High) 06/24/2019 03:39 EDT [...] 1.1 06/23/2019 14:00 EDT Electronically signed by [facility] Conversion Digital Marketing Consultant Cerner at 06/16/2022 8:24 PM CDT documented in this encounter Plan of Treatment Not on file documented as of this encounter Visit Diagnoses Not on filedocumented in this encounter
--- OUTSIDE RECORDS SUMMARY | 2024-12-21 10:04 | XMS_ITS | Encounter Summary ---
Author Organization [employer] ([place], [place], [place], [place]) Address [address] [place] [address] Care Team Providers Care Oceanographic Meteorologist Name Role Phone Unavailable Primary Care Provider Unavailabl e Encounter Details Date Type Department Care Team (Late st Contact Info) Description 07/19/[address] [facility] [place] [address] ProviderMariela MD [address] [place] [address] Social History Tobacco Use Types Packs/Day [...] HOWIE WETZEL PTA - 07/19/2019 12:34 EDT Jail Goals Mobility/Bed Mobility LTG PT Grid Goal [...] PTA - 07/19/2019 12:34 EDT HOWIE WETZEL, FOREST NURSERY WORKER - 07/19/2019 12:34 EDT Electronically signed by [facility] Conversion Website Project Manager Cerner at 06/16/2022 8:20 PM CDT documented in this encounter Plan of Treatment Not on file documented as of this encounter Visit Diagnoses Not on filedocumented in this encounter
--- OUTSIDE RECORDS SUMMARY | 2024-12-21 10:04 | XMS_ITS | Encounter Summary ---
Author Organization [employer] ([place], [place], [place], [place]) Address [address] [place] [address] Care Team Providers Care Studio Potter Name Role Phone Unavailable Primary Care Provider Unavailabl e Encounter Details Date Type Department Care Team (Late st Contact Info) Description 06/22/2019 Transcribed Document [facility] [place] [facility] [place] [address] ProviderMariela MD [address] [place] [phone] Social History Tobacco Use Types Packs/Day Years [...]
--- OUTSIDE RECORDS SUMMARY | 2024-12-21 10:04 | XMS_ITS | Encounter Summary ---
Author Organization [employer] ([place], [place], [place], [place]) Address [address] [place] [address] Care Team Providers Care Line Repairer Name Role Phone Unavailable Primary Care Provider Unavailabl e Encounter Details Date Type Department Care Team (Late st Contact Info) Description 10/26/2020 Transcribed Document [facility] [place] [facility] [place] [address] ProviderMariela MD [address] [place] [address] Social History Tobacco Use Types Packs/Day [...] - 10/26/2020 14:19 EDT Electronically signed by [facility] Conversion Asparagus Buncher Cerner at 06/16/2022 8:04 PM CDT documented in this encounter Plan of Treatment Not on file documented as of this encounter Visit Diagnoses Not on filedocumented in this encounter
--- OUTSIDE RECORDS SUMMARY | 2024-12-21 10:04 | XMS_ITS | Encounter Summary ---
Author Organization [employer] ([place], [place], [place], [place]) Address [address] [place] [address] Care Team Providers Care Office Communication Professor Name Role Phone Unavailable Primary Care Provider Unavailabl e Encounter Details Date Type Department Care Team (Late st Contact Info) Description 06/24/2019 Transcribed Document [facility] [place] [address] ProviderMariela MD [address] [place] [address] Social History Tobacco Use Types Packs/Day [...]
--- OUTSIDE RECORDS SUMMARY | 2024-12-21 10:04 | XMS_ITS | Encounter Summary ---
Author Organization [email or web address] ([place], [place], [place], [place]) Address [address] [place] [address] Care Team Providers Care Christmas Tree Farmer Name Role Phone Unavailable Primary Care Provider Unavailabl e Encounter Details Date Type Department Care Team (Late st Contact Info) Description 10/26/2020 Transcribed Document [facility] [place] [facility] [place] [address] ProviderMariela MD [address] [place] [address] Social History Tobacco Use Types Packs/Day [...] : 3 - Urgent Tracking Group : [facility] [place] Peggy Rayo RN - 10/26/2020 2:32 EDT Mode of Arrival : Stretcher Transported to ED by : Ambulance/ALS EMS Service : [place] To Room Via : Stretcher Accompanied By : registered clinical dietitian ED Vital Signs : Document Height & [...] PNED ; Probability: 0 ; Diagnosis Code: [id number] Lower leg pain-swelling Date: 10/26/2020 ; Diagnosis Type: Reason For Visit ; Confirmation: Confirmed ; Clinical Dx: Lower leg pain-swelling ; Classification: Medical ; Clinical Service: Emergency medicine ; Code: PNED ; Probability: 0 ; Diagnosis Code: [id number] ED Height and Weight Height Source : Stated Height Entry Format : [place] Height, Feet : 5 ft(Converted to: 152 cm, 60 Inch) Height, Inches : 0 Inch(Converted to: 0 ft 0 Inch, 0.00 cm) Clinical Height : 152.4 cm Weight Source, ED : Critical estimated dosing weight Weight Entry Format : [place] Weight, Pounds : 200 lb Clinical Dosing Weight : 90.91 kg Body Surface Area (BSA) : 1.87 m2 Body Mass Index : 39.1 kg/m2 (HI) [place] Body Weight (IBW) : 49.16 kg Peggy [...]
--- OUTSIDE RECORDS SUMMARY | 2024-12-21 10:04 | XMS_ITS | Encounter Summary ---
Author Organization [employer] ([place], [place], [place], [place]) Address [address] [place] [address] Care Team Providers Care Juice Tester Name Role Phone Unavailable Primary Care Provider Unavailabl e Encounter Details Date Type Department Care Team (Late st Contact Info) Description 08/27/2018 Transcribed Document [facility] [place] [facility] [place] [address] ProviderMariela MD [address] [place] [address] Social History Tobacco Use Types Packs/Day Years [...] Historical ProviderMD - 08/27/2018 2:00 AM CDT Photo Mask Processor Details Entered On: 08/27/2018 0:45 EDT Performed [...]
--- OUTSIDE RECORDS SUMMARY | 2024-12-21 10:04 | XMS_ITS | Encounter Summary ---
Author Organization [employer] ([place], [place], [place], [place]) Address [address] [place] [address] Care Team Providers Care Hand Stemmer Name Role Phone Unavailable Primary Care Provider Unavailabl e Encounter Details Date Type Department Care Team (Late st Contact Info) Description 10/26/2020 Transcribed Document [facility] [place] [address] [place] [address] ProviderMariela MD [address] [place] [address] Social History Tobacco Use Types [...] [facility] called and transfer set up to [facility] back to [facility] [address] Nancy Sood RN-PATIENT CARE BEDSIDE NON-EXEMPT - 10/26/2020 14:24 EDT documented in this encounter Plan of Treatment Not on file documented as of this encounter Visit Diagnoses Not on filedocumented in this encounter
--- OUTSIDE RECORDS SUMMARY | 2024-12-21 10:05 | XMS_ITS | Encounter Summary ---
Author Organization [employer] ([place], [place], [place], [place]) Address [address] [place] [address] Care Team Providers Care Microstrategy Architect Name Role Phone Unavailable Primary Care Provider Unavailabl e Encounter Details Date Type Department Care Team (Late st Contact Info) Description 06/22/2019 Transcribed Document [facility] [place] [address] [place] [address] ProviderMariela MD [address], [place] [id number] Social History Tobacco Use Types Packs/Day Years [...]
--- OUTSIDE RECORDS SUMMARY | 2024-12-21 10:05 | XMS_ITS | Encounter Summary ---
Author Organization [employer] ([place], [place], [place], [place]) Address [address] [place] [address] Care Team Providers Care Sand Conditioner Name Role Phone Unavailable Primary Care Provider Unavailabl e Encounter Details Date Type Department Care Team (Late st Contact Info) Description 07/19/2019 Transcribed Document [facility] [place] [address] ProviderMariela MD [address] [place] [address] Social History Tobacco Use Types Packs/Day Years [...] On: 07/19/2019 14:14 EDT by Marisela Rangel project manager senior Documentation Discharge Date/Time : 07/19/2019 14:14 EDT Patient Disposition, General : Discharge Discharge To : Assisted living Education Comment : needs reminders and reassurance Marisela Rangel RN - 07/19/2019 14:14 EDT documented in this encounter Plan of Treatment Not on file documented as of this encounter Visit Diagnoses Not on filedocumented in this encounter
--- OUTSIDE RECORDS SUMMARY | 2024-12-21 10:05 | XMS_ITS | Encounter Summary ---
Author Organization [employer] ([place], [place], [place], [place]) Address [address] [place] [address] Care Team Providers Care Loom Control Chain Builder Name Role Phone Unavailable Primary Care Provider Unavailabl e Encounter Details Date Type Department Care Team (Late st Contact Info) Description 08/22/2020 Transcribed Document [facility] [place] [facility] [place] [address] ProviderMariela MD [facility] [place] [address] Social History Tobacco Use Types [...]
--- OUTSIDE RECORDS SUMMARY | 2024-12-21 10:05 | XMS_ITS | Encounter Summary ---
Author Organization [employer] ([place], [place], [place], [place]) Address [address] [place] [address] Care Team Providers Care Sparmaker Name Role Phone Unavailable Primary Care Provider Unavailabl e Encounter Details Date Type Department Care Team (Late st Contact Info) Description 06/22/2019 Transcribed Document [facility] [place] [facility] [place] [address] ProviderMariela MD [address] [place] [address] Social History Tobacco Use Types Packs/Day Years [...]
--- OUTSIDE RECORDS SUMMARY | 2024-12-21 10:05 | XMS_ITS | Encounter Summary ---
Author Organization [employer] ([place], [place], [place], [place]) Address [address] [place] [address] Care Team Providers Care Warranty Administrator Name Role Phone Unavailable Primary Care Provider Unavailabl e Encounter Details Date Type Department Care Team (Late st Contact Info) Description 07/09/2019 Transcribed Document [facility] [place] [facility] [place] [address] ProviderMariela MD [address] [place], [place] [id number] Social History Tobacco Use Types Packs/Day Years [...] Historical ProviderMD - 07/09/2019 2:00 AM CDT State Historical Society Director Details Entered On: 07/09/2019 6:14 EDT Performed [...]
--- OUTSIDE RECORDS SUMMARY | 2024-12-21 10:05 | XMS_ITS | Encounter Summary ---
Author Organization [employer] ([place], [place], [place], [place]) Address [address] [place] [address] Care Team Providers Care Senior Staff Consultant Name Role Phone Unavailable Primary Care Provider Unavailabl e Encounter Details Date Type Department Care Team (Late st Contact Info) Description 06/25/2019 Transcribed Document [facility] [place] [facility] [place] [address] ProviderMariela MD [address] [place] [phone] Social History Tobacco Use Types Packs/Day Years [...] On: 06/25/2019 9:19 EDT by Halima Tripathi RN-BOTTOM TURNING LATHE TENDERlocal owner operator truck driver Progress Note Discharge Arrangements : Patient Post-Acute [...] Attend Multidisciplinary Rounds? : No Halima Tripathi RN-BOTTOM TURNING LATHE TENDER - 06/25/2019 9:19 EDT Narrative Progress Note Narrative Progress Note : RRS Mod @ 50. Per chart review, no MDR this AM: Patient has thrush and has been placed on diflucan for treatment. PICC line in place to LUE. Awaiting bed at [facility]. CM will continue to follow for discharge planning purposes. Historical Progress Note : Per ID note of 06/22: continue ceftriaxone 2 gm daily and plan on 8 weeks of therapy with PICC line in lifelong oral suppression. Otherwise, patient has been accepted by [facility] and we are awaiting bed availability, likely next week. CM will continue to follow. Halima Tripathi RN-BOTTOM TURNING LATHE TENDER - 06/24/19 13:49:26 RECEIVED CALL FROM ALFONSO WITH [facility]..PATIENT HAS BEEN ACCEPTED AND THEY WILL HAVE A BED SOMETIME NEXT WEEK..CM WILL CONTINUE TO FOLLOW AND INFORM DR DRIVER OF THE ABOVE..DEBORAH BENAVIDEZ RN-Disability Coordinator - 06/23/19 11:45:46 RECEIVED CALL FROM ALFONSO WITH [facility]..PATIENT HAS BEEN ACCEPTED AND THEY WILL HAVE A BED SOMETIME NEXT WEEK..CM WILL CONTINUE TO FOLLOW AND INFORM DR DRIVER OF THE ABOVE..STEPHANIE SPOKE WITH PT AT BEDSIDE AND SHE IS AWARE THAT [facility] HAS STARTED A PRECERT AND HOPEFULLY WILL HAVE BED AVAILABLE ON WEDNESDAY PENDING AUTHORIZATION..DR DRIVER AWARE..DEBORAH BENAVIDEZ RN-Disability Coordinator - 06/23/19 17:11:55 Sent referral to LTACH through [facility]..........MKIE Adam RN-Disability Coordinator - 06/21/19 16:57:54 Was planning for AKA, now patient will undergo a total joint revision with I&D. 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 Surgery scheduled for today................MIKE Adam RN-Disability Coordinator - 06/21/19 10:06:05 No MDR this AM with provider. Patient with low-grade fever this AM and throughout the night. COTY was rescheduled for 06/20 for this reason. CM will continue to follow. Halima Tripathi RN-BOTTOM TURNING LATHE TENDER - 06/20/19 11:50:51 Patient becoming more agitated and confused, refusing to wear oxygen. Patient now on CPAP, WBC increased, BC x2 positive for group b Strep. Dr Saenz to perform AKA tomorrow morning. Will continue to follow..............MIKE Adam RN-Disability Coordinator - 06/19/19 11:35:19 Halima Tripathi RN-BOTTOM TURNING LATHE TENDER - 06/25/2019 9:19 EDT documented in this encounter Plan of Treatment Not on file documented as of this encounter Visit Diagnoses Not on filedocumented in this encounter
--- OUTSIDE RECORDS SUMMARY | 2024-12-21 10:05 | XMS_ITS | Encounter Summary ---
Author Organization [employer] ([place], [place], [place], [place]) Address [address] [place] [address] Care Team Providers Care Hand Ii Cutter Name Role Phone Unavailable Primary Care Provider Unavailabl e Encounter Details Date Type Department Care Team (Late st Contact Info) Description 08/26/2018 Transcribed Document [facility] [place] [address] [place] [address] ProviderMariela MD [address], [place] [id number] Social History Tobacco Use Types Packs/Day Years [...]
--- OUTSIDE RECORDS SUMMARY | 2024-12-21 10:05 | XMS_ITS | Encounter Summary ---
Author Organization [employer] ([place], [place], [place], [place]) Address [address] [place] [address] Care Team Providers Care Fisher Pot Name Role Phone Unavailable Primary Care Provider Unavailabl e Encounter Details Date Type Department Care Team (Late st Contact Info) Description 07/09/2019 Transcribed Document [facility] [place] [address] [place] [address] ProviderMariela MD [address] [place], [place] [phone] Social History Tobacco Use Types Packs/Day Years [...]
--- OUTSIDE RECORDS SUMMARY | 2024-12-21 10:05 | XMS_ITS | Encounter Summary ---
Author Organization [employer] ([place], [place], [place], [place]) Address [address] [place] [address] Care Team Providers Care Financial Business Analyst Name Role Phone Unavailable Primary Care Provider Unavailabl e Encounter Details Date Type Department Care Team (Late st Contact Info) Description 06/25/2019 Transcribed Document [facility] [place] [facility] [place] [address] ProviderMariela MD [address] [place] [phone] Social History Tobacco Use Types Packs/Day Years [...] form. Electronically signed by Maureen Cornejo Conversion Tunnel Form Placing Supervisor Cerner at 06/16/2022 8:06 PM CDT documented in this encounter Plan of Treatment Not on file documented as of this encounter Visit Diagnoses Not on filedocumented in this encounter
--- OUTSIDE RECORDS SUMMARY | 2024-12-21 10:05 | XMS_ITS | Encounter Summary ---
Author Organization [employer] ([place], [place], [place], [place]) Address [address] [place] [address] Care Team Providers Care Optometry Teacher Name Role Phone Unavailable Primary Care Provider Unavailabl e Encounter Details Date Type Department Care Team (Late st Contact Info) Description 06/22/[address] [facility] [place] [address] [place] [address] ProviderMariela MD [address] [place] [phone] Social History Tobacco Use Types Packs/Day Years [...]
--- OUTSIDE RECORDS SUMMARY | 2024-12-21 10:05 | XMS_ITS | Encounter Summary ---
Author Organization [employer] ([place], [place], [place], [place]) Address [address] [place] [address] Care Team Providers Care Quality Assurance Supervisor Trim Name Role Phone Unavailable Primary Care Provider Unavailabl e Encounter Details Date Type Department Care Team (Late st Contact Info) Description 08/23/2020 Transcribed Document [facility] [place] Family Medicine [address] [place] [address] ProviderMariela MD [address] [place] [address] Social History Tobacco Use Types [...]
--- OUTSIDE RECORDS SUMMARY | 2024-12-21 10:05 | XMS_ITS | Encounter Summary ---
Author Organization [employer] ([place], [place], [place], [place]) Address [address] [place] [address] Care Team Providers Care Pipe Smoking Machine Offbearer Name Role Phone Unavailable Primary Care Provider Unavailabl e Encounter Details Date Type Department Care Team (Late st Contact Info) Description 07/19/2019 Transcribed Document [facility] [place] [facility] [place] [address] ProviderMariela MD [address] [place] [address] Social History Tobacco Use Types [...]
--- OUTSIDE RECORDS SUMMARY | 2024-12-21 10:05 | XMS_ITS | Encounter Summary ---
Author Organization [employer] ([place], [place], [place], [place]) Address [address] [place] [address] Care Team Providers Care Wire Preparation Worker Name Role Phone Unavailable Primary Care Provider Unavailabl e Encounter Details Date Type Department Care Team (Late st Contact Info) Description 07/10/2019 Transcribed Document [facility] [place] On license of [facility] [place] [address] ProviderMariela MD [address] [place], [place] [id number] Social History Tobacco Use Types Packs/Day Years [...] Historical ProviderMD - 07/10/2019 2:00 AM CDT Javascript Software Engineer Details Entered On: 07/10/2019 3:21 EDT Performed [...] 07/10/2019 3:21 EDT Electronically signed by Chantal [facility] Conversion Occupational Safety Specialist Cerner at 06/16/2022 8:10 PM CDT documented in this encounter Plan of Treatment Not on file documented as of this encounter Visit Diagnoses Not on filedocumented in this encounter
--- OUTSIDE RECORDS SUMMARY | 2024-12-21 10:05 | XMS_ITS | Encounter Summary ---
Author Organization [employer] ([place], [place], [place], [place]) Address [address] [place] [address] Care Team Providers Care Industrial Registered Nurse Name Role Phone Unavailable Primary Care Provider Unavailabl e Encounter Details Date Type Department Care Team (Late st Contact Info) Description 08/27/2018 Transcribed Document [facility] [place] [address] [place] [address] ProviderMariela MD [address] [place], [place] [id number] Social History Tobacco Use Types Packs/Day Years [...]
--- OUTSIDE RECORDS SUMMARY | 2024-12-21 10:05 | XMS_ITS | Encounter Summary ---
Author Organization [employer] ([place], [place], [place], [place]) Address [address] [place] [address] Care Team Providers Care Gig Tender Name Role Phone Unavailable Primary Care Provider Unavailabl e Encounter Details Date Type Department Care Team (Late st Contact Info) Description 08/26/2018 Transcribed Document [facility] [address] [place] [address] Emely Atkinson MD [address] [place] [address] Social History Tobacco Use Types Packs/Day [...] EDT, Bilateral, Length: Knee High, Continuous Order (INMO EPPS) Medications Benadryl, 25 mg= 1 Tab, [...]
--- OUTSIDE RECORDS SUMMARY | 2024-12-21 10:05 | XMS_ITS | Encounter Summary ---
Author Organization [employer] ([place], [place], [place], [place]) Address [address] [place] [address] Care Team Providers Care Waste Handling Technician Name Role Phone Unavailable Primary Care Provider Unavailabl e Encounter Details Date Type Department Care Team (Late st Contact Info) Description 06/22/2019 Transcribed Document [facility] [place] [facility] [address] ProviderMariela [place] [address] Social History Tobacco Use Types [...] PRN Chloraseptic Menthol 1.4% topical spray, 1 [place], Oral, Q2H, PRN cloNIDine, 0.1 mg= 1 [...] Daily fluticasone 50 mcg/inh nasal spray, 2 [place], Nostrils Both, BID, PRN gabapentin, 300 mg= [...] ALYC # 1 K/uL 06/22/2019 02:40 EDT [place] Percent Man 6 % (High) 06/22/2019 02:40 EDT [place] Percent Man 3 % (High) 06/22/2019 02:40 EDT Myelo Percent Man 2 % (High) 06/22/2019 02:40 EDT RBC Morphology Normal 06/22/2019 02:[address] Estimate Adequate 06/22/2019 02:40 EDT Body Fluid Type Synovial fluid 06/21/2019 12:55 EDT Color BF Red 06/21/2019 12:55 EDT Appearance BF Bloody 06/21/2019 12:55 EDT [place] [id number] /uL (High) 06/21/2019 12:55 EDT Auto RBC BF [id number] /uL (High) 06/21/2019 12:55 EDT Neutrophils Body [...]
--- OUTSIDE RECORDS SUMMARY | 2024-12-21 10:05 | XMS_ITS | Encounter Summary ---
Author Organization [employer] ([place], [place], [place], [place]) Address [address] [place] [address] Care Team Providers Care Overlock Sleeve Setter Name Role Phone Unavailable Primary Care Provider Unavailabl e Encounter Details Date Type Department Care Team (Late st Contact Info) Description 06/24/2019 Transcribed Document [facility] [place] [address] ProviderMariela MD [address] [place] [address] Social History Tobacco Use Types Packs/Day [...] 0.9% 50 mL 2 Gram, IV Piggyback, [id number] cyanocobalamin 1,000 mcg tab 5,000 mcg 5 Tab, Oral, Daily docusate sodium 100 mg cap 100 mg 1 Cap, Oral, BID DULoxetine DR 60 mg cap 60 mg 1 Cap, Oral, Daily enoxaparin 40 mg/0.4 mL inj 40 mg 0.4 mL, SubCutaneous, Q08GUin gabapentin 300 mg cap 300 mg 1 [...] At Bedtime fluticasone 0.05% nasal spray 2 [place], Nostrils Both, BID LORazepam 2 mg/mL inj [...] Topical, Q1H phenol 1.4% throat spray 1 [place], Oral, Q2H potassium chloride 10 mEq 100 [...] % 19.4 % Lymph # 3.08 K/uL [place] % 7.4 % [place] # 1.17 K/uL HI Eos % 2.9 [...] % LOW ALYC # 3 K/uL NA [place] Percent Man 6 % [place] Myelo Percent [...]
--- OUTSIDE RECORDS SUMMARY | 2024-12-21 10:05 | XMS_ITS | Encounter Summary ---
Author Organization [employer] ([place], [place], [place], [place]) Address [address] [place] [address] Care Team Providers Care Solar Panel Installation Supervisor Name Role Phone Unavailable Primary Care Provider Unavailabl e Encounter Details Date Type Department Care Team (Late st Contact Info) Description 06/25/2019 Transcribed Document [facility] [place] [facility] [place] [address] ProviderMariela MD [address] [place] [address] Social History Tobacco Use Types Packs/Day [...] 0.9% 50 mL 2 Gram, IV Piggyback, [id number] cyanocobalamin 1,000 mcg tab 5,000 mcg 5 [...] At Bedtime fluticasone 0.05% nasal spray 2 [place], Nostrils Both, BID LORazepam 2 mg/mL inj [...] Topical, Q1H phenol 1.4% throat spray 1 [place], Oral, Q2H potassium chloride 10 mEq 100 [...]
--- OUTSIDE RECORDS SUMMARY | 2024-12-21 10:05 | XMS_ITS | Encounter Summary ---
Author Organization [employer] ([place], [place], [place], [place]) Address [address] [place] [address] Care Team Providers Care Executive Steward Name Role Phone Unavailable Primary Care Provider Unavailabl e Encounter Details Date Type Department Care Team (Late st Contact Info) Description 08/26/2018 Transcribed Document [facility] [place] Family Medicine [facility] [place] [address] ProviderMariela MD [address] [place] [address] Social History Tobacco Use Types Packs/Day [...]
--- OUTSIDE RECORDS SUMMARY | 2024-12-21 10:05 | XMS_ITS | Encounter Summary ---
Author Organization [employer] ([place], [place], [place], [place]) Address [address] [place] [address] Care Team Providers Care Fur Blender Name Role Phone Unavailable Primary Care Provider Unavailabl e Encounter Details Date Type Department Care Team (Late st Contact Info) Description 08/23/2020 Transcribed Document [facility] [place] [address] ProviderMariela [place] [address] Social History Tobacco Use Types [...] Referral(s): Service: Organization: Business Address: Phone Number: Junior Accountant Care [facility] [address], [address] Discharge Options Discussed with Patient : Discharge transportation, DME, [facility] rehabilitation Barriers to Discharge Identified : Clinical Condition of Patient Barriers to Discharge Unresolved : Clinical Condition of Patient Designation of Choice Signed : No Patient Offered Choice/Affiliations Explained : Yes List/Info Provided Pt/Fam/Support Person : Durable medical equipment, snf facilities Were Referrals Sent to Post Acute [...] to be discharged yet. Pending preautorization at [facility]. Called and spoke with Richard and he [...] wants to go to Rehab and choose [facility] or [place]. Referral faxed via Mike and brooke notified. 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 DME: patient has a wc, showerchair and a walker at home. CM: jevon jon will continue to follow patient TRANS: will need an [facility] to transport patient there. ADALBERTO BEE RN - 08/21/20 14:06:04 ADALBERTO BEE RN - 08/23/2020 14:59 EDT documented in this encounter Plan of Treatment Not on file documented as of this encounter Visit Diagnoses Not on filedocumented in this encounter
--- OUTSIDE RECORDS SUMMARY | 2024-12-21 10:05 | XMS_ITS | Encounter Summary ---
Author Organization [employer] ([place], [place], [place], [place]) Address [address] [place] [address] Care Team Providers Care Redevelopment Manager Name Role Phone Unavailable Primary Care Provider Unavailabl e Encounter Details Date Type Department Care Team (Late st Contact Info) Description 06/22/2019 Transcribed Document [facility] [place] [facility] [place] [address] ProviderMariela MD [address] [place] [id number] Social History Tobacco Use Types Packs/Day Years [...]
--- OUTSIDE RECORDS SUMMARY | 2024-12-21 10:05 | XMS_ITS | Encounter Summary ---
Author Organization [employer] ([place], [place], [place], [place]) Address [address] [place] [address] Care Team Providers Care Art Objects Repairer Name Role Phone Unavailable Primary Care Provider Unavailabl e Encounter Details Date Type Department Care Team (Late st Contact Info) Description 08/23/2020 Transcribed Document [facility] [place] [facility] [place] [address] ProviderMariela MD [address] [place] [address] Social History Tobacco Use Types Packs/Day Years Used Date Smoking Tobacco: Never Assessed Comments Unknown Sex and Gender Information Value Date Recorded Sex Assigned at Female 09/02/2021 8:57 PM CDT Legal Sex Female 6:58 PM CDT Gender Identity Female 09/02/2021 8:57 PM CDT Sexual Orientation Not on file documented as of this encounter Miscellaneous Notes * Cerner Conversion Note - Marilea Gates MD - 08/23/2020 2:51 PM CDT [...] EDT Chloraseptic Menthol 1.4% topical spray: 5 [place], Oral, [place], Q2H, PRN for Sore Throat, Routine, Start [...] EDT fluticasone 50 mcg/inh nasal spray: 2 [place], Nostrils Both, [place], BID, PRN for Allergies, Routine, Start 08/20/20 [...] Refill(s) fluticasone 50 mcg/inh nasal spray: 2 [place], Nostrils Both, [place], BID, PRN Allergies, 0 Refill(s) furosemide 40 [...] Oral, Daily fluticasone 0.05% nasal spray 2 [place], Nostrils Both, BID magnesium hydroxide 8% liq [...] Oral, Q4H phenol 1.4% throat spray 5 [place], Oral, Q2H promethazine 25 mg tab 12.5 [...]
--- OUTSIDE RECORDS SUMMARY | 2024-12-21 10:05 | XMS_ITS | Encounter Summary ---
Author Organization [employer] ([place], [place], [place], [place]) Address [address] [place] [address] Care Team Providers Care Manager Long Term Care Name Role Phone Unavailable Primary Care Provider Unavailabl e Encounter Details Date Type Department Care Team (Late st Contact Info) Description 06/22/2019 Transcribed Document [facility] [place] [facility] [address] ProviderMariela MD [address] [place] [address] Social History Tobacco Use Types Packs/Day [...] 0.9% 50 mL 2 Gram, IV Piggyback, [id number] cyanocobalamin 1,000 mcg tab 5,000 mcg 5 [...] At Bedtime fluticasone 0.05% nasal spray 2 [place], Nostrils Both, BID gabapentin 300 mg cap [...] Topical, Q1H phenol 1.4% throat spray 1 [place], Oral, Q2H potassium chloride 10 mEq 100 [...] % LOW ALYC # 1 K/uL NA [place] Percent Man 6 % [place] Percent Man 3 % HI Myelo Percent [...]
--- OUTSIDE RECORDS SUMMARY | 2024-12-21 10:05 | XMS_ITS | Encounter Summary ---
Author Organization [employer] ([place], [place], [place], [place]) Address [address] [place] [address] Care Team Providers Care Card Feeder Name Role Phone Unavailable Primary Care Provider Unavailabl e Encounter Details Date Type Department Care Team (Late st Contact Info) Description 06/22/2019 Transcribed Document [facility] [place] [address] ProviderMariela MD [address] [place] [address] Social History Tobacco Use Types Packs/Day Years [...]
--- OUTSIDE RECORDS SUMMARY | 2024-12-21 10:05 | XMS_ITS | Encounter Summary ---
Author Organization [employer] ([place], [place], [place], [place]) Address [address] [place] [address] Care Team Providers Care Vice President Of Development Name Role Phone Unavailable Primary Care Provider Unavailabl e Encounter Details Date Type Department Care Team (Late st Contact Info) Description 07/09/2019 Transcribed Document [facility] [place] [facility] [place] [address] ProviderMariela MD [address] [place] [id number] Social History Tobacco Use Types Packs/Day Years [...] 0.9% 50 mL 2 Gram, IV Piggyback, [id number] cyanocobalamin 1,000 mcg tab 5,000 mcg 5 [...] Oral, Q4H fluticasone 0.05% nasal spray 2 [place], Nostrils Both, BID magnesium hydroxide 8% liq [...]
--- OUTSIDE RECORDS SUMMARY | 2024-12-21 10:05 | XMS_ITS | Encounter Summary ---
Author Organization [employer] ([place], [place], [place], [place]) Address [address] [place] [address] Care Team Providers Care Chemical Analytical Sampler Name Role Phone Unavailable Primary Care Provider Unavailabl e Encounter Details Date Type Department Care Team (Late st Contact Info) Description 06/22/2019 Transcribed Document [facility] [place] [facility] [place] [address] ProviderMariela MD [address] [place] [address] Social History Tobacco Use Types Packs/Day [...] KACIE MAJOR, PT - 06/25/2019 13:15 EDT Group Home Goals Other PT LTG Grid Goal [...] it was agreed to not sit pt [facility] at this time. c/o velcro rubbing wtih [...]
--- OUTSIDE RECORDS SUMMARY | 2024-12-21 10:05 | XMS_ITS | Encounter Summary ---
Author Organization [employer] ([place], [place], [place], [place]) Address [address] [place] [address] Care Team Providers Care Needle Grinder Name Role Phone Unavailable Primary Care Provider Unavailabl e Encounter Details Date Type Department Care Team (Late st Contact Info) Description 08/26/2018 Transcribed Document [facility] [place] [facility] [place] [address] ProviderMariela MD [address] [place] [address] Social History Tobacco Use Types [...] CDS Signature: Leonarda BOWLING, RN Phone #: [phone] This is a permanent part of the Medical Record documented in this encounter Plan of Treatment Not on file documented as of this encounter Visit Diagnoses Not on filedocumented in this encounter
--- OUTSIDE RECORDS SUMMARY | 2024-12-21 10:05 | XMS_ITS | Encounter Summary ---
Author Organization [employer] ([place], [place], [place], [place]) Address [address] [place] [address] Care Team Providers Care Capital Markets Specialist Name Role Phone Unavailable Primary Care Provider Unavailabl e Encounter Details Date Type Department Care Team (Late st Contact Info) Description 06/26/2019 Transcribed Document [facility] [place] [address] [place] [address] ProviderMariela MD [address] [place] [address] Social History Tobacco Use Types Packs/Day Years [...]
--- OUTSIDE RECORDS SUMMARY | 2024-12-21 10:05 | XMS_ITS | Encounter Summary ---
Author Organization [employer] ([place], [place], [place], [place]) Address [address] [place] [address] Care Team Providers Care School Principal Name Role Phone Unavailable Primary Care Provider Unavailabl e Encounter Details Date Type Department Care Team (Late st Contact Info) Description 08/27/2018 Transcribed Document [facility] [place] [facility] [place] [address] ProviderMariela MD [address] [place] [address] Social History Tobacco Use Types Packs/Day Years [...]
--- OUTSIDE RECORDS SUMMARY | 2024-12-21 10:05 | XMS_ITS | Encounter Summary ---
Author Organization [employer] ([place], [place], [place], [place]) Address [address] [place] [address] Care Team Providers Care Oil Well Fishing Tool Operator Name Role Phone Unavailable Primary Care Provider Unavailabl e Encounter Details Date Type Department Care Team (Late st Contact Info) Description 06/22/2019 Transcribed Document [facility] [place] [facility] [address] ProviderMariela MD [address] [place] [address] Social History Tobacco Use Types Packs/Day Years [...] Historical ProviderMD - 06/22/2019 2:00 AM CDT Optical Store Manager Details Entered On: 06/22/2019 1:24 EDT Performed [...]
--- OUTSIDE RECORDS SUMMARY | 2024-12-21 10:06 | XMS_ITS | Encounter Summary ---
Author Organization [employer] ([place], [place], [place], [place]) Address [address] [place] [address] Care Team Providers Care Convertible Top Installer Name Role Phone Unavailable Primary Care Provider Unavailabl e Encounter Details Date Type Department Care Team (Late st Contact Info) Description 07/19/2019 Transcribed Document [facility] [place] [facility] [place] [address] ProviderMariela MD [address] [place] [phone] Social History Tobacco Use Types Packs/Day Years [...] 13:41:45 07/17/2019 Call received from Tati Erickson [facility], with approval for LTAC services. Last covered date 07/18/2019 with anticipated DC on 07/19/2019. Please fax DC summary on date of discharge. Auth#[id number]. СВЕТЛАНА WANG - 07/17/19 11:32:16 07/17/[address] Snyder (ID), he is in agreement to discharge to SNF on Wednesday, he would like for her to follow-up with the consulting ID (Dr. Stock) in 1 week upon discharge. TELEHEALTH appointment scheduled with Dr. Stock for 07/25/2019 @ 1600. [facility] will call Lexy to facilitate this visit. СВЕТЛАНА WANG - 07/17/19 10:32:31 07/17/2019 faxed clinical review the [facility] at [phone] to request approval for extended ltac services. Auth#[id number], awaiting approval. CM/Discharge plan attached to review. СВЕТЛАНА WANG - 07/17/19 09:06:05 07/17/[address] Jaffe's progress note, yahaira may be removed if okay with Dr. Saenz's office. Per our WOCN, Dr. Saenz's office said they need to see her before they make that decision. Appt scheduled for tomorrow, 07/18/2019 @ 1415; [facility] round-trip transport scheduled for 1315 pick-up ([id number]). Spoke with Lexy Valdez, they have not yet began the patient's insurance preauth, they will today, and be ready to admit on Wednesday. Dr. Jaffe notified and in agreement. [facility] transport rescheduled for discharge 07/19/2019 @ 1400 ([id number]). YOANNA ARAUJO RN - 07/14/19 15:41:31 Yoanna Araujo 07/13/2019 1500 - patient has accepted bed offer at [facility], she will be transported on WednesdayJuly 16 at 2pm by [facility] Confirmation # [id number]. She [facility]affe notified of discharge plan. YOANNA ARAUJO RN - 07/13/19 14:37:44 Yoanna Araujo 07/13/2019 1400 received call from Ratna with [facility] offering patient a bed, Received call from Isabelel with [facility] she is looking at patient and needed a current height and weight. Still waiting to see if any other bed offers come through. I also sent referral to [facility]. YOANNA ARAUJO RN - 07/13/19 11:04:03 Yoanna Araujo 07/13/2019 1100 faxed out referral for placement for patient to [facility]hab, [facility] Awaiting call backs. СВЕТЛАНА WANG - 07/12/19 12:19:17 07/12/2019 Fax received from [facility] with approval for LTAC services with a request for updated discharge plans and clinical info to support needs if not discharged. Auth#[id number]. Clinical review or discharge summary to be faxed by 07/17/2019. YOANNA ARAUJO RN - 07/12/19 08:39:48 Yoanna Araujo 07/12/2019 0830 - faxed clinical review the [facility] at [phone] to request approval for extended ltac services. Auth#[id number], awaiting approval. YOANNA ARAUJO RN - 06/29/19 [...] health and she has been to the [place] [facility] and [facility] in the past. She has the following equipment at home: wheel chair, walker, cane and shower chair. Her discharge plan is to go to rehab prior to returning home. PCP: Flavia MARQUEZ [address] [place] [address] Steward/Stewardess Second Class: Dr. Shemar Barger [address] [facility][1] [address] Dr. Clemente Del Rio MD - Rheumatology - [address] [place] [address] Preferences: Home Health: [facility]: no preferences DME: [facility] - [address], [place] [address] Long Term: [facility]: no preferences Will continue to monitor patient for anticipated discharge needs YOANNA ARAUJO, EDDIE - 06/29/19 08:30:20 Yoanna Araujo 06/29/2019829 received fax from [facility] with approval for extended ltac coverage with next clinical review due on 07/12/2019. Auth#[id number]. Will continue to follow for anticipated discharge needs. YOANNA ARAUJO RN - 06/28/19 08:35:06 Yoanna Araujo 06/28/2019829 Faxed clinical review to [facility] at to request approval for extended Ltac services. Auth#[id number]. Pending Approval. Documentation Status Complete : Yes СВЕТЛАНА WANG - 07/19/2019 9:15 EDT documented in this encounter Plan of Treatment Not on file documented as of this encounter Visit Diagnoses Not on filedocumented in this encounter
--- OUTSIDE RECORDS SUMMARY | 2024-12-21 10:06 | XMS_ITS | Encounter Summary ---
Author Organization [employer] ([place], [place], [place], [place]) Address [address] [place] [address] Care Team Providers Care Commercial Loan Administrator Name Role Phone Unavailable Primary Care Provider Unavailabl e Encounter Details Date Type Department Care Team (Late st Contact Info) Description 08/23/2020 Transcribed Document [facility] [place] [address] [place] [address] ProviderMariela MD [address] [place] [address] Social History Tobacco Use Types [...] 08/23/2020 18:54 EDT Electronically signed by Chantal [facility] Conversion Resolution Manager Min at 06/16/2022 8:26 PM CDT documented in this encounter Plan of Treatment Not on file documented as of this encounter Visit Diagnoses Not on filedocumented in this encounter
--- OUTSIDE RECORDS SUMMARY | 2024-12-21 10:06 | XMS_ITS | Encounter Summary ---
Author Organization [employer] ([place], [place], [place], [place]) Address [address] [place] [address] Care Team Providers Care Tank Charger Name Role Phone Unavailable Primary Care Provider Unavailabl e Encounter Details Date Type Department Care Team (Late st Contact Info) Description 08/23/2020 Transcribed Document [facility] [place] Medicine [facility] [place] [address] ProviderMariela MD [address] [place] [address] Social History Tobacco Use Types Packs/Day [...]
--- OUTSIDE RECORDS SUMMARY | 2024-12-21 10:06 | XMS_ITS | Encounter Summary ---
Author Organization [employer] ([place], [place], [place], [place]) Address [address] [place] [address] Care Team Providers Care Research Anthropologist Name Role Phone Unavailable Primary Care Provider Unavailabl e Encounter Details Date Type Department Care Team (Late st Contact Info) Description 08/23/2020 Transcribed Document [facility] [place] [facility] [address] ProviderMariela MD [address] [place] [address] Social History Tobacco Use Types [...] Historical ProviderMD - 08/23/2020 2:00 AM CDT Cost Estimating Manager Details Entered On: 08/23/2020 0:04 EDT Performed [...] EDT Electronically signed by Maureen Cornejo Conversion Newspaper Press Operator Apprentice Cerner at 06/16/2022 8:26 PM CDT documented in this encounter Plan of Treatment Not on file documented as of this encounter Visit Diagnoses Not on filedocumented in this encounter
--- OUTSIDE RECORDS SUMMARY | 2024-12-21 10:06 | XMS_ITS | Encounter Summary ---
Author Organization [employer] ([place], [place], [place], [place]) Address [address] [place] [address] Care Team Providers Care Isotope Technologist Name Role Phone Unavailable Primary Care Provider Unavailabl e Encounter Details Date Type Department Care Team (Late st Contact Info) Description 07/10/2019 Transcribed Document [facility] [place] [address] [place] [address] ProviderMariela MD [address] [place] [address] Social History Tobacco Use Types [...] 07/10/2019 3:21 EDT Electronically signed by Chantal [facility] Conversion Renewable Energy Engineer Min at 06/16/2022 8:22 PM CDT documented in this encounter Plan of Treatment Not on file documented as of this encounter Visit Diagnoses Not on filedocumented in this encounter
--- OUTSIDE RECORDS SUMMARY | 2024-12-21 10:06 | XMS_ITS | Encounter Summary ---
Author Organization [employer] ([place], [place], [place], [place]) Address [address] [place] [address] Care Team Providers Care Cytogenetic Technologist Name Role Phone Unavailable Primary Care Provider Unavailabl e Encounter Details Date Type Department Care Team (Late st Contact Info) Description 06/26/2019 Transcribed Document [facility] [place] Medicine [facility] [address] ProviderMariela MD [address] [place] [address] Social History Tobacco Use Types Packs/Day [...] transfered from [facility]. L knee replacement with complications and [...] LOF for IADLs, OT : Pt states [place] prior. Lives alone. Ramp into home. Does [...] Yes PATTY OWENS OTR/Bartolo 06/27/2019 12:24 EDT [place] Goals, OT Bathing LTG Grid Goal #1 [...] PATTY OWENS OTR/Bartolo - 06/27/2019 13:35 EDT [place] OT Charges OT Ther Activities Ea 15 Min : 2 OT Eval Moderate Complexity : 1 PATTY OWENS OTR/L - 06/27/2019 12:14 EDT Electronically signed by Maureen Cornejo Conversion Thermometer Production Worker Cerner at 06/16/2022 8:02 PM CDT documented in this encounter Plan of Treatment Not on file documented as of this encounter Visit Diagnoses Not on filedocumented in this encounter
--- OUTSIDE RECORDS SUMMARY | 2024-12-21 10:06 | XMS_ITS | Encounter Summary ---
Author Organization [employer] ([place], [place], [place], [place]) Address [address] [place] [address] Care Team Providers Care Ecommerce Project Manager Name Role Phone Unavailable Primary Care Provider Unavailabl e Encounter Details Date Type Department Care Team (Late st Contact Info) Description 08/13/2020 Transcribed Document [facility] [place] [address] [place] [address] ProviderMariela MD [address] [place], [place] [...]
--- OUTSIDE RECORDS SUMMARY | 2024-12-21 10:06 | XMS_ITS | Encounter Summary ---
Author Organization [employer] ([place], [place], [place], [place]) Address [address] [place] [address] Care Team Providers Care Med Spa Manager Name Role Phone Unavailable Primary Care Provider Unavailabl e Encounter Details Date Type Department Care Team (Late st Contact Info) Description 06/26/[address] [facility] [place] Family Medicine [facility] [place] [address] ProviderMariela MD [address] [place] [address] Social History Tobacco Use Types Packs/Day [...]
--- OUTSIDE RECORDS SUMMARY | 2024-12-21 10:06 | XMS_ITS | Encounter Summary ---
Author Organization [employer] ([place], [place], [place], [place]) Address [address] [place] [address] Care Team Providers Care Bowling Ball Finisher Name Role Phone Unavailable Primary Care Provider Unavailabl e Encounter Details Date Type Department Care Team (Late st Contact Info) Description 07/10/2019 Transcribed Document [facility] [place] Family Medicine [facility] [place] [address] ProviderMariela MD [address] [place] [address] Social History Tobacco Use Types Packs/Day Years [...] had JUST gotten up to chair with WELDING SUPERVISOR assist and did not feel she wanted to put any more pressure on my foot pt c/o R ankle pain, NOTED SIGNIFICANT EDEMA Notification : RN(Marisela)/PTx/OTx CORI NELSON, PT - 07/10/2019 15:28 EDT Electronically signed by Chantal [facility] Conversion Lock Corner Machine Operator Cerner at 06/16/2022 8:08 PM CDT documented in this encounter Plan of Treatment Not on file documented as of this encounter Visit Diagnoses Not on filedocumented in this encounter
--- OUTSIDE RECORDS SUMMARY | 2024-12-21 10:06 | XMS_ITS | Encounter Summary ---
Author Organization [employer] ([place], [place], [place], [place]) Address [address] [place] [address] Care Team Providers Care Cable Television Technician Name Role Phone Unavailable Primary Care Provider Unavailabl e Encounter Details Date Type Department Care Team (Late st Contact Info) Description 08/13/2020 Transcribed Document [facility] [place] [facility] [address] ProviderMariela MD [address] [place] [address] Social History Tobacco Use Types Packs/Day [...] Source : Stated Height Entry Format : [place] Height, Feet : 5 ft(Converted to: 152 cm, 60 Inch) Height, Inches : 0 Inch(Converted to: 0 ft 0 Inch, 0.00 cm) Clinical Height : 152.4 cm Weight Source : Standing scale Weight Entry Format : [place] Clinical Dosing Weight : 90.91 kg Weight, Pounds : 200 lb Body Surface Area (BSA) : 1.87 m2 Body Mass Index : 39.1 kg/m2 (HI) [place] Body Weight : 45 kg BINDU MOREIRA [...] BINDU MOREIRA RN - 08/13/2020 10:[address] Suicide Severity Rating Scale (C-SSRS) CSSRS Past [...] Sy Legal Guardian : Gracia Support Person/Patient Floatlight Powder Mixer : Yes Support Person/Pt Rep Name : Sam Barlow Sy Barlow Contact Password : Keily Support Person/Pt Rep Contact Information : zeinab (Sam) [phone] (Nancy Rust [phone] Want Family/Rep/Phys Notified of Admit : No Emergency Contact #1 : Sam Barlow Emergency Contact #1 Emergency Contact #1 Relationship : son Emergency Contact #2 : - Emergency Contact #2 Phone Number : - Emergency Contact #2 Relationship : - Primary Language : Frisian Preferred Communication Mode : Verbal Communication Barrier : None Valve Setter Needed : BINDU De León RN - [...]
--- OUTSIDE RECORDS SUMMARY | 2024-12-21 10:06 | XMS_ITS | Encounter Summary ---
Author Organization [employer] ([place], [place], [place], [place]) Address [address] [place] [address] Care Team Providers Care Plans Examiner Name Role Phone Unavailable Primary Care Provider Unavailabl e Encounter Details Date Type Department Care Team (Late st Contact Info) Description 06/26/2019 Transcribed Document [facility] [place] [facility] [place] [address] ProviderMariela MD [address] [place] [address] Social History Tobacco Use Types Packs/Day [...] Impaired Left UE Strength : Impaired Hand Wheat Inspector Test : bilaterally 4/5 Upper Extremity Comment [...] OSKAR MARTÍNEZ, PT - 06/27/2019 11:41 EDT [place] Construction Supervisor Goals Mobility/Bed Mobility LTG PT Grid Goal [...] 06/27/2019 11:41 EDT Electronically signed by Chantal [facility] Conversion Supervisor Tank Cleaning Cerner at 06/16/2022 8:02 PM CDT documented in this encounter Plan of Treatment Not on file documented as of this encounter Visit Diagnoses Not on filedocumented in this encounter
--- OUTSIDE RECORDS SUMMARY | 2024-12-21 10:06 | XMS_ITS | Encounter Summary ---
Author Organization [employer] ([place], [place], [place], [place]) Address [address] [place] [address] Care Team Providers Care Synthetic Gem Press Operator Name Role Phone Unavailable Primary Care Provider Unavailabl e Encounter Details Date Type Department Care Team (Late st Contact Info) Description 08/23/2020 Transcribed Document [facility] [place] Family Medicine [facility] [place] [address] ProviderMariela MD [address] [place] [address] Social History Tobacco Use Types [...] x ] Hx Babak filter 08/20 PN [place] filter Present Treatments Results and Location in Medical Record [ x ] Inform about Blood transfusion 08/22 RN event note Informed pt that she needed a blood transfusion per standing order and explained the details [ x ] Monitoring H&H 08/22 PN Close monitoring H&H. CDS/Field Recorder Signature: Charo Blancas Phone #: [phone] Date/Time: 08/23/2020 ____ This is a permanent part of the Medical Record Q4 2019 [facility] Updated: documented in this encounter Plan of Treatment Not on file documented as of this encounter Visit Diagnoses Not on filedocumented in this encounter
--- OUTSIDE RECORDS SUMMARY | 2024-12-21 10:06 | XMS_ITS | Encounter Summary ---
Author Organization [employer] ([place], [place], [place], [place]) Address [address] [place] [address] Care Team Providers Care Automatic Hemmer Name Role Phone Unavailable Primary Care Provider Unavailabl e Encounter Details Date Type Department Care Team (Late st Contact Info) Description 08/28/2018 Transcribed Document [facility] [place] [facility] [place] [address] ProviderMariela MD [address] [place] [address] Social History Tobacco Use Types Packs/Day Years [...] Historical ProviderMD - 08/28/2018 2:00 AM CDT Hot Metal Crane Operator Details Entered On: 08/28/2018 4:53 EDT Performed [...] 4:53 EDT Electronically signed by Chantal [facility] Conversion Graphics Editor Cerner at 06/16/2022 8:24 PM CDT documented in this encounter Plan of Treatment Not on file documented as of this encounter Visit Diagnoses Not on filedocumented in this encounter
--- OUTSIDE RECORDS SUMMARY | 2024-12-21 10:06 | XMS_ITS | Encounter Summary ---
Author Organization [employer] ([place], [place], [place], [place]) Address [address] [place] [address] Care Team Providers Care Sounding Device Operator Name Role Phone Unavailable Primary Care Provider Unavailabl e Encounter Details Date Type Department Care Team (Late st Contact Info) Description 06/26/2019 Transcribed Document [facility] [place] Family Medicine [facility] [place] [address] ProviderMariela MD [facility] [place] [address] Social History Tobacco Use Types [...] Marilee, Daniella, Dietitian - 06/27/2019 13:50 EDT Electronically signed by Maureen Cornejo Conversion Learning And Development Analyst Cerner at 06/16/2022 8:08 PM CDT documented in this encounter Plan of Treatment Not on file documented as of this encounter Visit Diagnoses Not on filedocumented in this encounter
--- OUTSIDE RECORDS SUMMARY | 2024-12-21 10:06 | XMS_ITS | Encounter Summary ---
Author Organization [employer] ([place], [place], [place], [place]) Address [address] [place] [address] Care Team Providers Care Windmill Technician Name Role Phone Unavailable Primary Care Provider Unavailabl e Encounter Details Date Type Department Care Team (Late st Contact Info) Description 07/10/2019 Transcribed Document [facility] [place] Medicine [facility] [place] [address] ProviderMariela MD [address] [place] [id number] Social History Tobacco Use Types Packs/Day Years [...] 0.9% 50 mL 2 Gram, IV Piggyback, [id number] cyanocobalamin 1,000 mcg tab 5,000 mcg 5 [...] Oral, Q4H fluticasone 0.05% nasal spray 2 [place], Nostrils Both, BID magnesium hydroxide 8% liq [...] % 22.4 % Lymph # 1.61 x10(3)/uL [place] % 12.7 % HI [place] # 0.91 K/uL Eos % 6.3 % [...] monitoring fluid and electrolytes. For risk precautions.. Electronically signed by Maureen Cornejo Conversion Knitting Machine Operator Automatic Cerner at 06/16/2022 8:02 PM CDT documented in this encounter Plan of Treatment Not on file documented as of this encounter Visit Diagnoses Not on filedocumented in this encounter
--- OUTSIDE RECORDS SUMMARY | 2024-12-21 10:06 | XMS_ITS | Encounter Summary ---
Author Organization [employer] ([place], [place], [place], [place]) Address [address] [place] [address] Care Team Providers Care Smash Fixer Name Role Phone Unavailable Primary Care Provider Unavailabl e Encounter Details Date Type Department Care Team (Late st Contact Info) Description 06/26/2019 Transcribed Document [facility] [place] [facility] [place] [address] ProviderMariela MD [address] [place] [address] Social History Tobacco Use Types Packs/Day Years [...] Bibi Gallagher RN - 06/28/2019 6:18 EDT documented in this encounter Plan of Treatment Not on file documented as of this encounter Visit Diagnoses Not on filedocumented in this encounter
--- OUTSIDE RECORDS SUMMARY | 2024-12-21 10:06 | XMS_ITS | Encounter Summary ---
Author Organization [employer] ([place], [place], [place], [place]) Address [address] [place] [address] Care Team Providers Care Turkey Picker Name Role Phone Unavailable Primary Care Provider Unavailabl e Encounter Details Date Type Department Care Team (Late st Contact Info) Description 07/10/2019 Transcribed Document [facility] [place] Medicine [facility] [place] [address] ProviderMariela MD [address] [place] [address] Social History Tobacco Use Types Packs/Day Years [...]
--- OUTSIDE RECORDS SUMMARY | 2024-12-21 10:06 | XMS_ITS | Encounter Summary ---
Author Organization [employer] ([place], [place], [place], [place]) Address [address] [place] [address] Care Team Providers Care It Security Engineer Name Role Phone Unavailable Primary Care Provider Unavailabl e Encounter Details Date Type Department Care Team (Late st Contact Info) Description 08/13/2020 Transcribed Document [facility] [place] [facility] [place] [facility] [place] [address] ProviderMariela MD [address] [place] [address] Social History Tobacco Use Types Packs/Day [...] Knee Pain Primary Care Provider NILA CHO, [facility] History of Present Illness This patient is [...] Daily fluticasone 50 mcg/inh nasal spray 2 [place], PRN, Nostrils Both, BID furosemide 40 mg [...] 26.8 Fructosamine- 186 Electronically signed by Chantal, [facility] Conversion Camp Coordinator Cerner at 06/16/2022 8:08 PM CDT documented in this encounter Plan of Treatment Not on file documented as of this encounter Visit Diagnoses Not on filedocumented in this encounter
--- OUTSIDE RECORDS SUMMARY | 2024-12-21 10:06 | XMS_ITS | Encounter Summary ---
Author Organization [employer] ([place], [place], [place], [place]) Address [address] [place] [address] Care Team Providers Care Slab Depiler Operator Name Role Phone Unavailable Primary Care Provider Unavailabl e Encounter Details Date Type Department Care Team (Late st Contact Info) Description 08/24/2020 Transcribed Document [facility] [place] [address] ProviderMariela MD [place] [address] Social History Tobacco Use Types [...] Historical ProviderMD - 08/24/2020 2:00 AM CDT Surface Grinding Machine Hand Details Entered On: 08/24/2020 1:19 EDT Performed [...] Rayna Carrizales, Rn - 08/24/2020 1:19 EDT Electronically signed by Maureen Cornejo Conversion Distributor Advertising Material Cerner at 06/16/2022 8:08 PM CDT documented in this encounter Plan of Treatment Not on file documented as of this encounter Visit Diagnoses Not on filedocumented in this encounter
--- OUTSIDE RECORDS SUMMARY | 2024-12-21 10:06 | XMS_ITS | Encounter Summary ---
Author Organization [employer] ([place], [place], [place], [place]) Address [address] [place] [address] Care Team Providers Care Nurse Aide Evaluator Name Role Phone Unavailable Primary Care Provider Unavailabl e Encounter Details Date Type Department Care Team (Late st Contact Info) Description 06/25/2019 Transcribed Document [facility] [place] [facility] [place] [address] ProviderMariela MD [address] [place] [address] Social History Tobacco Use Types Packs/Day [...] PRN Chloraseptic Menthol 1.4% topical spray, 1 [place], Oral, Q2H, PRN cloNIDine, 0.1 mg= 1 [...] Daily fluticasone 50 mcg/inh nasal spray, 2 [place], Nostrils Both, BID, PRN gabapentin, 300 mg= [...]
--- OUTSIDE RECORDS SUMMARY | 2024-12-21 10:06 | XMS_ITS | Encounter Summary ---
Author Organization [employer] ([place], [place], [place], [place]) Address [address] [place] [address] Care Team Providers Care Shipping Room Supervisor Name Role Phone Unavailable Primary Care Provider Unavailabl e Encounter Details Date Type Department Care Team (Late st Contact Info) Description 07/10/2019 Transcribed Document [facility] [place] [facility] [place] [address] ProviderMariela MD [address] [place] [address] Social History Tobacco Use Types Packs/Day Years [...]
--- OUTSIDE RECORDS SUMMARY | 2024-12-21 10:06 | XMS_ITS | Encounter Summary ---
Author Organization [employer] ([place], [place], [place], [place]) Address [address] [place] [address] Care Team Providers Care Travel Sales Consultant Name Role Phone Unavailable Primary Care Provider Unavailabl e Encounter Details Date Type Department Care Team (Late st Contact Info) Description 08/23/2020 Transcribed Document [facility] [place] [facility] [place] [address] ProviderMariela MD [address] [place] [address] Social History Tobacco Use Types [...] EDT Performed On: 08/23/2020 6:32 EDT by Ciatlyn Fallon Rn Intervention Information: acetaminophen Performed by [...]
--- OUTSIDE RECORDS SUMMARY | 2024-12-21 10:06 | XMS_ITS | Encounter Summary ---
Author Organization [employer] ([place], [place], [place], [place]) Address [address] [place] [address] Care Team Providers Care Horticulture/Floriculture Teacher Name Role Phone Unavailable Primary Care Provider Unavailabl e Encounter Details Date Type Department Care Team (Late st Contact Info) Description 08/19/2020 Transcribed Document [facility] [place] [facility] [place] [address] ProviderMariela MD [address] [place] [address] Social History Tobacco Use Types [...] Numbers : Insurance 1 Health Plan: [facility] MEDICARE ADVANTAGE Policy Number: [id number] Authorization Number: [id number] Insurance Primary Name : [employer] MEDICARE ADVANTAGE Policy Number: [id number] Authorization Status-Primary : Admit approved Reference Number-Primary : [id number] Authorization Number-Primary : [id number] Number of Days Authorized-Primary : 0 Day(s) Authorized Service Begin Date-Primary : 08/20/2020 EDT Authorized Service End Date-Primary : 08/20/2020 EDT Authorization Comments-Primary : Note on [facility] website:Patient was initially scheduled for Right [...] surgery. Historical Authorization Comments-Primary : Comment 1: [facility] Medicare approved per website for 1 day (TIESHA AQUINO RN-Utilization Review 08/19/2020 15:14) TIESHA AQUINO RN-Utilization Review - 08/19/2020 15:20 EDT documented in this encounter Plan of Treatment Not on file documented as of this encounter Visit Diagnoses Not on filedocumented in this encounter
--- OUTSIDE RECORDS SUMMARY | 2024-12-21 10:06 | XMS_ITS | Encounter Summary ---
Author Organization [employer] ([place], [place], [place], [place]) Address [address] [place] [address] Care Team Providers Care Paint Roller Cover Machine Setter Name Role Phone Unavailable Primary Care Provider Unavailabl e Encounter Details Date Type Department Care Team (Late st Contact Info) Description 07/10/2019 Transcribed Document [facility] Family [facility] [place] [address] ProviderMariela MD [address] [place] [address] Social History Tobacco Use Types Packs/Day Years [...] EDT Electronically signed by Maureen Cornejo Conversion Psychiatric Social Worker Supervisor Cerbryce at 06/16/2022 8:04 PM CDT documented in this encounter Plan of Treatment Not on file documented as of this encounter Visit Diagnoses Not on filedocumented in this encounter
--- OUTSIDE RECORDS SUMMARY | 2024-12-21 10:06 | XMS_ITS | Encounter Summary ---
Author Organization [employer] ([place], [place], [place], [place]) Address [address] [place] [address] Care Team Providers Care Liner Reroll Tender Name Role Phone Unavailable Primary Care Provider Unavailabl e Encounter Details Date Type Department Care Team (Late st Contact Info) Description 07/19/2019 Transcribed Document [facility] [place] Family Medicine [address] [place] [address] ProviderMariela MD [address] [place] [address] Social History Tobacco Use Types [...]
--- OUTSIDE RECORDS SUMMARY | 2024-12-21 10:06 | XMS_ITS | Encounter Summary ---
Author Organization [employer] ([place], [place], [place], [place]) Address [address] [address] Care Team Providers Care Dog Beautician Name Role Phone Unavailable Primary Care Provider Unavailabl e Encounter Details Date Type Department Care Team (Late st Contact Info) Description 07/10/2019 Transcribed Document [facility] [place] [address] [place] [address] ProviderMariela MD [address] [place] [address] Social History Tobacco [...]
--- OUTSIDE RECORDS SUMMARY | 2024-12-21 10:06 | XMS_ITS | Encounter Summary ---
Author Organization [employer] ([place], [place], [place], [place]) Address [address] [place] [address] Care Team Providers Care Cotton Buyer Name Role Phone Unavailable Primary Care Provider Unavailabl e Encounter Details Date Type Department Care Team (Late st Contact Info) Description 07/19/2019 Transcribed Document [facility] [place] [facility] [place] [address] ProviderMariela MD [address] [place] [address] Social History Tobacco Use Types Packs/Day [...]
--- OUTSIDE RECORDS SUMMARY | 2024-12-21 10:06 | XMS_ITS | Encounter Summary ---
Author Organization [employer] ([place], [place], [place], [place]) Address [address] [place] [address] Care Team Providers Care Wildlife Biologist Name Role Phone Unavailable Primary Care Provider Unavailabl e Encounter Details Date Type Department Care Team (Late st Contact Info) Description 06/26/2019 Transcribed Document [facility] [place] [facility] [place] [address] ProviderMariela MD [address], [place] [id number] Social History Tobacco Use Types Packs/Day Years [...] To Walk With a Standard Walker: 1. supervisor hardboard your walker. Do not slide your standard [...] 02/15/2006 Document Revised: 07/15/2016 Document Reviewed: 08/30/2015 [employer] Interactive Patient Education ? 2019 [employer] What to expect after the Procedure: [...] or 4 frozen water bottles in the [facility]. ?? Contact a health care provider if: [...] Barley. Bulgur wheat. Millet. Bran muffins. Popcorn. [place] wafer crackers. ?? Vegetables Sweet potatoes. Spinach. Kale. Artichokes. Cabbage. Broccoli. Green peas. Carrots. Squash. ?? Fruits Berries. Pears. Apples. Oranges. Avocados. Prunes and raisins. Dried figs. ?? Meats and Other Protein Sources [place], kidney, call, and soy beans. Split peas. [...] gray has 11 g of protein. ?? [place] seeds ??? 1 oz has 5.5 g [...] floor. ?? Place frequently used items in uytm-cb-olifi places ?? Keep electrical cables out of [...] ? Using the bathroom. ? Using household aerial planting and cultivation manager or toxic chemicals. ? Touching or [...]
--- OUTSIDE RECORDS SUMMARY | 2024-12-21 10:07 | XMS_ITS | Encounter Summary ---
Author Organization [employer] ([place], [place], [place], [place]) Address [address] [place] [address] Care Team Providers Care Bank Teller Name Role Phone Unavailable Primary Care Provider Unavailabl e Encounter Details Date Type Department Care Team (Late st Contact Info) Description 08/28/2018 Transcribed Document [facility] [place] [facility] [place] [address] ProviderMariela MD [address] [place], [place] [...] LOW 34.1-44.9 Y Electronically signed by Chantal, [facility] Conversion Stock Worker And Deliverer Cerner at 06/16/2022 8:18 PM CDT documented in this encounter Plan of Treatment Not on file documented as of this encounter Visit Diagnoses Not on filedocumented in this encounter
--- OUTSIDE RECORDS SUMMARY | 2024-12-21 10:07 | XMS_ITS | Encounter Summary ---
Author Organization [employer] ([place], [place], [place], [place]) Address [address] [place] [address] Care Team Providers Care Orthotics Prosthetics Assistant Name Role Phone Unavailable Primary Care Provider Unavailabl e Encounter Details Date Type Department Care Team (Late st Contact Info) Description 08/24/2020 Transcribed Document [facility] [place] Medicine [facility] [place] [address] ProviderMariela MD [facility] [place] [address] Social History Tobacco Use Types [...] Conversion Note - Mariela ProviderMD - 08/24/2020 5:00 AM CDT Pain [...]
--- OUTSIDE RECORDS SUMMARY | 2024-12-21 10:07 | XMS_ITS | Encounter Summary ---
Author Organization [employer] ([place], [place], [place], [place]) Address [address] [place] [address] Care Team Providers Care Vacuum Frame Operator Name Role Phone Unavailable Primary Care Provider Unavailabl e Encounter Details Date Type Department Care Team (Late st Contact Info) Description 08/28/2018 Transcribed Document [facility] [place] Family Medicine [facility] [place] [address] ProviderMariela MD [address] [place] [id number] Social History Tobacco Use Types Packs/Day Years [...]
--- OUTSIDE RECORDS SUMMARY | 2024-12-21 10:07 | XMS_ITS | Encounter Summary ---
Author Organization [employer] ([place], [place], [place], [place]) Address [address] [place] [address] Care Team Providers Care Traffic Engineer Name Role Phone Unavailable Primary Care Provider Unavailabl e Encounter Details Date Type Department Care Team (Late st Contact Info) Description 06/22/2019 Transcribed Document [facility] [place] [facility] [place] [address] ProviderMariela MD [address] [place] [phone] Social History Tobacco Use Types Packs/Day Years [...]
--- OUTSIDE RECORDS SUMMARY | 2024-12-21 10:07 | XMS_ITS | Encounter Summary ---
Author Organization [employer] ([place], [place], [place], [place]) Address [address] [place] [address] Care Team Providers Care Drosser Name Role Phone Unavailable Primary Care Provider Unavailabl e Encounter Details Date Type Department Care Team (Late st Contact Info) Description 06/26/2019 Transcribed Document [facility] [place] Medicine [facility] [place] [address] ProviderMariela MD [address] [place] [address] Social History Tobacco Use Types Packs/Day Years [...]
--- OUTSIDE RECORDS SUMMARY | 2024-12-21 10:07 | XMS_ITS | Encounter Summary ---
Author Organization [email or web address] ([place], [place], [place], [place]) Address [address] [place] [address] Care Team Providers Care Dye Reel Operator Name Role Phone Unavailable Primary Care Provider Unavailabl e Encounter Details Date Type Department Care Team (Late st Contact Info) Description 08/24/2020 Transcribed Document [facility] [place] [facility] [place] [address] ProviderMariela MD [address] [place] [address] Social History Tobacco Use Types Packs/Day [...] EDT Chloraseptic Menthol 1.4% topical spray: 5 [place], Oral, [place], Q2H, PRN for Sore Throat, Routine, Start [...] EDT fluticasone 50 mcg/inh nasal spray: 2 [place], Nostrils Both, [place], BID, PRN for Allergies, Routine, Start 08/20/20 [...] Refill(s) fluticasone 50 mcg/inh nasal spray: 2 [place], Nostrils Both, [place], BID, PRN Allergies, 0 Refill(s) furosemide 40 [...] Oral, Daily fluticasone 0.05% nasal spray 2 [place], Nostrils Both, BID magnesium hydroxide 8% liq [...] Oral, Q4H phenol 1.4% throat spray 5 [place], Oral, Q2H senna 8.6 mg tab 8.6 [...] % 24.3 % Lymph # 2.40 K/uL Mchenry % 11.0 % Mchenry # 1.09 K/uL HI Eos % 4.0 [...] monitoring renal function. Pending insurance approval for rehab/penitentiary facility. documented in this encounter Plan of Treatment Not on file documented as of this encounter Visit Diagnoses Not on filedocumented in this encounter
--- OUTSIDE RECORDS SUMMARY | 2024-12-21 10:07 | XMS_ITS | Encounter Summary ---
Author Organization [employer] ([place], [place], [place], [place]) Address [address] [place] [address] Care Team Providers Care Fur Operator Name Role Phone Unavailable Primary Care Provider Unavailabl e Encounter Details Date Type Department Care Team (Late st Contact Info) Description 08/27/2018 Transcribed Document [facility] [place] Family Medicine [facility] [place] [address] ProviderMariela MD [address] [place] [phone] Social History Tobacco Use Types Packs/Day Years [...]
--- OUTSIDE RECORDS SUMMARY | 2024-12-21 10:07 | XMS_ITS | Encounter Summary ---
Author Organization [employer] ([place], [place], [place], [place]) Address [address] [place] [address] Care Team Providers Care Scrap Preparation Supervisor Name Role Phone Unavailable Primary Care Provider Unavailabl e Encounter Details Date Type Department Care Team (Late st Contact Info) Description 08/24/2020 Transcribed Document [facility] [place] Family Medicine [address] [place] [address] ProviderMariela MD [address] [place] [address] Social History Tobacco Use [...] 08/24/2020 5:52 EDT Electronically signed by Chantal [facility] Conversion Clamp Jig Assembler Min at 06/16/2022 8:13 PM CDT documented in this encounter Plan of Treatment Not on file documented as of this encounter Visit Diagnoses Not on filedocumented in this encounter
--- OUTSIDE RECORDS SUMMARY | 2024-12-21 10:07 | XMS_ITS | Encounter Summary ---
Author Organization [employer] ([place], [place], [place], [place]) Address [address] [place] [address] Care Team Providers Care Rejector Name Role Phone Unavailable Primary Care Provider Unavailabl e Encounter Details Date Type Department Care Team (Late st Contact Info) Description 06/23/2019 Transcribed Document [facility] [place] [facility] [place] [address] ProviderMariela MD [address] [place] [address] Social History Tobacco Use Types Packs/Day [...]
--- OUTSIDE RECORDS SUMMARY | 2024-12-21 10:07 | XMS_ITS | Encounter Summary ---
Author Organization [employer] ([place], [place], [place], [place]) Address [address] [place] [address] Care Team Providers Care National Dedicated Truck Driver Name Role Phone Unavailable Primary Care Provider Unavailabl e Encounter Details Date Type Department Care Team (Late st Contact Info) Description 07/10/2019 Transcribed Document [facility] [place] [facility] [place] [address] ProviderMariela MD [address] [place] [address] Social History Tobacco Use Types Packs/Day [...] PharmD, BCPS HPI: 06/15 Pt admitted to [facility] [place] with infected [...] Q3days. Rx to follow, Chrissy Henderson, PharmD [phone] Electronically signed by Chantal, [facility] Conversion Brush Trimming Machine Setter Cerner at 06/16/2022 8:18 PM CDT documented in this encounter Plan of Treatment Not on file documented as of this encounter Visit Diagnoses Not on filedocumented in this encounter
--- OUTSIDE RECORDS SUMMARY | 2024-12-21 10:07 | XMS_ITS | Encounter Summary ---
Author Organization [employer] ([place], [place], [place], [place]) Address [address] [place] [address] Care Team Providers Care Rn Nursery Name Role Phone Unavailable Primary Care Provider Unavailabl e Encounter Details Date Type Department Care Team (Late st Contact Info) Description 08/27/2018 Transcribed Document [facility] [place] [facility] [place] [address] ProviderMariela MD [address] [place] [address] Social History Tobacco Use Types [...] for 45 days Disposition:Plan for transition to [facility] [place] when ok with ortho Discussed with patient and time spent with above 25 minutes. VTE Prophylaxis - Medical Sequential Compression Device Start: 08/22/18 12:12:00 EDT, Bilateral, Length: Knee High, Continuous Order (NIMO EPPS) Ortho asked to keep her today with leg not wrapped and plan to be discharged to the [place] tomorrow. Medications Benadryl, 25 mg= 1 Tab, [...]
--- OUTSIDE RECORDS SUMMARY | 2024-12-21 10:07 | XMS_ITS | Encounter Summary ---
Author Organization [employer] ([place], [place], [place], [place]) Address [address] [place] [address] Care Team Providers Care Gas Welder Apprentice Name Role Phone Unavailable Primary Care Provider Unavailabl e Encounter Details Date Type Department Care Team (Late st Contact Info) Description 08/28/2018 Transcribed Document [facility] [place] [address] [place] [address] ProviderMariela MD [address] [place] [address] Social History Tobacco Use Types Packs/Day Years [...]
--- OUTSIDE RECORDS SUMMARY | 2024-12-21 10:08 | XMS_ITS | Encounter Summary ---
Author Organization [employer] ([place], [place], [place], [place]) Address [address] [place] [address] Care Team Providers Care Edging Supervisor Name Role Phone Unavailable Primary Care Provider Unavailabl e Encounter Details Date Type Department Care Team (Late st Contact Info) Description 06/23/2019 Transcribed Document [facility] Family Medicine [facility] [place] [address] ProviderMariela MD [address] [place] [phone] Social History Tobacco Use Types Packs/Day Years [...]
--- OUTSIDE RECORDS SUMMARY | 2024-12-21 10:08 | XMS_ITS | Encounter Summary ---
Author Organization [employer] ([place], [place], [place], [place]) Address [address] [place] [address] Care Team Providers Care Blender / Cook Name Role Phone Unavailable Primary Care Provider Unavailabl e Encounter Details Date Type Department Care Team (Late st Contact Info) Description 07/05/2019 Transcribed Document [facility] [place] [facility] [place] [address] [place] [address] ProviderMariela MD [address] [place], [place] [phone] Social History Tobacco Use Types Packs/Day Years [...]
--- OUTSIDE RECORDS SUMMARY | 2024-12-21 10:08 | XMS_ITS | Encounter Summary ---
Author Organization [employer] ([place], [place], [place], [place]) Address [address] [place] [address] Care Team Providers Care Technology Risk Intern Name Role Phone Unavailable Primary Care Provider Unavailabl e Encounter Details Date Type Department Care Team (Late st Contact Info) Description 07/06/2019 Transcribed Document [facility] [place] Family Medicine [address] [place] [address] ProviderMariela MD [address] [place], [place] [phone] Social History Tobacco Use Types Packs/Day Years [...] Electronically signed by Maureen Cornejo Conversion Supervisor Nuclear Medicine Cerbryce at 06/16/2022 8:12 PM CDT documented in this encounter Plan of Treatment Not on file documented as of this encounter Visit Diagnoses Not on filedocumented in this encounter
--- OUTSIDE RECORDS SUMMARY | 2024-12-21 10:08 | XMS_ITS | Encounter Summary ---
Author Organization [employer] ([place], [place], [place], [place]) Address [address] [place] [address] Care Team Providers Care Arm Rest Builder Name Role Phone Unavailable Primary Care Provider Unavailabl e Encounter Details Date Type Department Care Team (Late st Contact Info) Description 06/22/2019 Transcribed Document [facility] [place] [facility] [place] [address] ProviderMariela MD [address] [place] [address] Social History Tobacco Use Types Packs/Day [...] (JUN 18) L 2.0 (JUN 16) Micro: [facility]: 06/15 [facility] Blood cultures positive for group B strep and 2/2 bottles SJE: 06/16 fluid aspiration of left knee shows 118,150 white blood cells, GPC 06/16 repeat blood cultures with Group B Strep 06/16 MRSA surveillance culture and pro/pending 06/16 Urine culture in process/pending Rad: Radiology Results (Last 48 hours) [id number] -- 06/16/2019 21:08 CR Chest 1 Vw [...]
--- OUTSIDE RECORDS SUMMARY | 2024-12-21 10:08 | XMS_ITS | Encounter Summary ---
Author Organization [employer] ([place], [place], [place], [place]) Address [address] [place] [address] Care Team Providers Care Spring Floor Service Worker Name Role Phone Unavailable Primary Care Provider Unavailabl e Encounter Details Date Type Department Care Team (Late st Contact Info) Description 07/06/2019 Transcribed Document [facility] [place] Medicine [facility] [place] [address] ProviderMariela MD [address] [place] [address] Social History Tobacco Use Types Packs/Day Years [...]
--- OUTSIDE RECORDS SUMMARY | 2024-12-21 10:08 | XMS_ITS | Encounter Summary ---
Author Organization [employer] ([place], [place], [place], [place]) Address [address] [place] [address] Care Team Providers Care Marine Structural Designer Name Role Phone Unavailable Primary Care Provider Unavailabl e Encounter Details Date Type Department Care Team (Late st Contact Info) Description 07/17/2019 Transcribed Document [facility] [place] Family Medicine [facility] [place] [address] ProviderMariela MD [address] [place] [address] Social History Tobacco Use Types [...] Note : 07/17/2019 faxed clinical review the [facility] at [phone] to request approval for extended ltac services. Auth#[id number], awaiting approval. CM/Discharge plan attached to review. [...] [facility] round-trip transport scheduled for 1315 pick-up ([id number]). Spoke with Lexy Valdez, they have not yet began the patient's insurance preauth, they will today, and be ready to admit on Wednesday. Dr. Jaffe notified and in agreement. [facility] rescheduled for discharge 07/19/2019 @ 1400 ([id number]). YOANNA ARAUJO RN - 07/14/19 15:41:31 Yoanna Araujo 07/13/2019 1500 - patient has accepted bed offer at [facility], she will be transported on WednesdayJuly 16 at 2pm by [facility] Confirmation # [id number]. She declined the bed offer at [facility]. Dr. Jaffe notified of discharge plan. YOANNA ARAUJO RN - 07/13/19 14:37:44 Yoanna Araujo 07/13/2019 1400 received call from Ratna with [facility] offering patient a bed, Received call from Isabelle with [facility] she is looking at patient and needed a current height and weight. Still waiting to see if any other bed offers come through. I also sent referral to [facility]. YOANNA ARAUJO RN - 07/13/19 11:04:03 Yoanna Araujo 07/13/2019 1100 faxed out referral for placement for patient to [facility] rehab, [facility] Awaiting call backs. СВЕТЛАНА WANG - 07/12/19 12:19:17 07/12/2019 Fax received from [facility] with approval for LTAC services with a request for updated discharge plans and clinical info to support needs if not discharged. Auth#[id number]. Clinical review or discharge summary to be faxed by 07/17/2019. YOANNA ARAUJO RN - 07/12/19 08:39:48 Yoanna Araujo 07/12/2019 0830 - faxed clinical review the [facility] at [phone] to request approval for extended ltac services. Auth#[id number], awaiting approval. YOANNA ARAUJO RN - 06/29/19 [...] health and she has been to the [place] [facility] and [facility] in the past. She has the following equipment at home: wheel chair, walker, cane and shower chair. Her discharge plan is to go to rehab prior to returning home. PCP: Flavia MARQUEZ [address] [place] [phone] Hide Salter: Dr. Shemar Barger [address] [facility] 36 [facility] [address] [address] Clemente Del Rio MD - Rheumatology - [address] [place], [place] [phone] Preferences: Home Health: [facility]: no preferences DME: [facility] - [address], [place] [phone] Long-Term: [facility] facility: no preferences Will continue to monitor patient for anticipated discharge needs YOANNA ARAUJO RN - 06/29/19 08:30:20 Yoanna Araujo 06/29/2019 0830 received fax from [facility] with approval for extended ltac coverage with next clinical review due on 07/12/2019. Auth#[id number]. Will continue to follow for anticipated discharge needs. YOANNA ARAUJO RN - 06/28/19 08:35:06 Yoanna Araujo 06/28/2019 0830 Faxed clinical review to [facility] at to request approval for extended Ltac services. Auth#[id number]. Pending Approval. Documentation Status Complete : Yes СВЕТЛАНА WANG - 07/17/2019 10:31 EDT documented in this encounter Plan of Treatment Not on file documented as of this encounter Visit Diagnoses Not on filedocumented in this encounter
--- OUTSIDE RECORDS SUMMARY | 2024-12-21 10:08 | XMS_ITS | Encounter Summary ---
Author Organization [employer] ([place], [place], [place], [place]) Address [address] [place] [address] Care Team Providers Care Customer Account Administrator Name Role Phone Unavailable Primary Care Provider Unavailabl e Encounter Details Date Type Department Care Team (Late st Contact Info) Description 07/18/2019 Transcribed Document [facility] [place] [facility] [place] [address] ProviderMariela MD [facility] [place] [address] Social History Tobacco Use Types [...]
--- OUTSIDE RECORDS SUMMARY | 2024-12-21 10:08 | XMS_ITS | Encounter Summary ---
Author Organization [employer] ([place], [place], [place], [place]) Address [address] [place] [address] Care Team Providers Care Computer Numerical Control Programmer Name Role Phone Unavailable Primary Care Provider Unavailabl e Encounter Details Date Type Department Care Team (Late st Contact Info) Description 08/21/2020 Transcribed Document [facility] [place] [facility] [place] [address] ProviderMariela MD [address] [place] [address] Social History Tobacco Use Types [...] nausea vomiting ???Hypotensive ???Needs to go to halfway facility on discharge and when stable Review [...] EDT Chloraseptic Menthol 1.4% topical spray: 5 [place], Oral, [place], Q2H, PRN for Sore Throat, Routine, Start [...] EDT fluticasone 50 mcg/inh nasal spray: 2 [place], Nostrils Both, [place], BID, PRN for Allergies, Routine, Start 08/20/20 [...] Refill(s) fluticasone 50 mcg/inh nasal spray: 2 [place], Nostrils Both, [place], BID, PRN Allergies, 0 Refill(s) furosemide 40 [...] Oral, Daily fluticasone 0.05% nasal spray 2 [place], Nostrils Both, BID magnesium hydroxide 8% liq [...] Oral, Q4H phenol 1.4% throat spray 5 [place], Oral, Q2H promethazine 25 mg tab 12.5 [...] and urine output. Case management for rehabilitation referral/halfway facility. documented in this encounter Plan of Treatment Not on file documented as of this encounter Visit Diagnoses Not on filedocumented in this encounter
--- OUTSIDE RECORDS SUMMARY | 2024-12-21 10:08 | XMS_ITS | Encounter Summary ---
Author Organization [employer] ([place], [place], [place], [place]) Address [address] [place] [address] Care Team Providers Care Automatic Oven Operator Name Role Phone Unavailable Primary Care Provider Unavailabl e Encounter Details Date Type Department Care Team (Late st Contact Info) Description 08/28/2018 Transcribed Document [facility] [place] [facility] [place] [address] ProviderMariela MD [address] [place] [address] Social History Tobacco Use Types Packs/Day Years [...] Pina Littlejohn Rn - 08/28/2018 10:46 EDT Electronically signed by Maureen Cornejo Conversion Telecommunicator Supervisor Cerner at 06/16/2022 8:04 PM CDT documented in this encounter Plan of Treatment Not on file documented as of this encounter Visit Diagnoses Not on filedocumented in this encounter
--- OUTSIDE RECORDS SUMMARY | 2024-12-21 10:08 | XMS_ITS | Encounter Summary ---
Author Organization [employer] ([place], [place], [place], [place]) Address [address] [place] [address] Care Team Providers Care Machine Rough Rounder Name Role Phone Unavailable Primary Care Provider Unavailabl e Encounter Details Date Type Department Care Team (Late st Contact Info) Description 06/22/2019 Transcribed Document [facility] [place] [facility] [address] ProviderMariela MD [place] [address] Social History Tobacco Use Types [...]
--- OUTSIDE RECORDS SUMMARY | 2024-12-21 10:08 | XMS_ITS | Encounter Summary ---
Author Organization [employer] ([place], [place], [place], [place]) Address [address] [place] [address] Care Team Providers Care Melter Operator Name Role Phone Unavailable Primary Care Provider Unavailabl e Encounter Details Date Type Department Care Team (Late st Contact Info) Description 07/06/2019 Transcribed Document [facility] Radiology [address] [place] [address] Jordan Barahona MD [address] [phone] Social History Tobacco Use Types Packs/Day Years [...] (JULY 02) L 2.4 (JUN 26) Micro: [facility]: 06/15 [facility] [...]
--- OUTSIDE RECORDS SUMMARY | 2024-12-21 10:08 | XMS_ITS | Encounter Summary ---
Author Organization [employer] ([place], [place], [place], [place]) Address [address] [place] [address] Care Team Providers Care Electronics Engineering Manager Name Role Phone Unavailable Primary Care Provider Unavailabl e Encounter Details Date Type Department Care Team (Late st Contact Info) Description 07/17/2019 Transcribed Document [facility] [place] [address] ProviderMariela MD [address] [place] [phone] Social History Tobacco Use Types Packs/Day Years [...] : 07/17/2019 Call received from Tati Erickson [facility], with approval for LTAC services. Last covered date 07/18/2019 with anticipated DC on 07/19/2019. Please fax DC summary on date of discharge. Auth#[id number]. Care Management Note Report : СВЕТЛАНА WANG - 07/17/19 11:32:16 07/17/[address] Snyder (ID), he is in agreement to discharge to SNF on Wednesday, he would like for her to follow-up with the consulting ID (Dr. Stock) in 1 week upon discharge. TELEHEALTH appointment scheduled with Dr. Stock for 07/25/2019 @ 1600. [facility] will call [place] to facilitate this visit. СВЕТЛАНА WANG - 07/17/19 10:32:31 07/17/2019 faxed clinical review the [facility] at [phone] to request approval for extended ltac services. Auth#[id number], awaiting approval. CM/Discharge plan attached to review. СВЕТЛАНА WANG - 07/17/19 09:06:05 07/17/[address] Jaffe's progress note, yahaira may be removed if okay with Dr. Saenz's office. Per our WOCN, Dr. Saenz's office said they need to see her before they make that decision. Appt scheduled for tomorrow, 07/18/2019 @ 1415; [facility] round-trip transport scheduled for 1315 pick-up ([id number]). Spoke with Lexy Valdez, they have not yet began the patient's insurance preauth, they will today, and be ready to admit on Wednesday. Dr. Jaffe notified and in agreement. [facility] rescheduled for discharge 07/19/2019 @ 1400 ([id number]). YOANNA ARAUJO RN - 07/14/19 15:41:31 Yoanna Araujo 07/13/2019 1500 - patient has accepted bed offer at [facility], she will be transported on WednesdayJuly 16 at 2pm by [facility] Confirmation # [id number]. She declined the bed offer at [facility] Dr. Jaffe notified of discharge plan. YOANNA ARAUJO RN - 07/13/19 14:37:44 Yoanna Araujo 07/13/2019 1400 received call from Ratna with [facility] offering patient a bed, Received call from Isabelle with [facility] she is looking at patient and needed a current height and weight. Still waiting to see if any other bed offers come through. I also sent referral to [facility]. YOANNA ARAUJO, EDDIE - 07/13/19 11:04:03 Yoanna Araujo 07/13/2019 1100 faxed out referral for placement for patient to [facility] nursing and rehab, [facility], [facility] and triology facilities. Awaiting call backs. СВЕТЛАНА WANG - 07/12/19 12:19:17 07/12/2019 Fax received from [facility] with approval for LTAC services with a request for updated discharge plans and clinical info to support needs if not discharged. Auth#[id number]. Clinical review or discharge summary to be faxed by 07/17/2019. YOANNA ARAUJO RN - 07/12/19 08:39:48 Yoanna Araujo 07/12/2019 0830 - faxed clinical review the [facility] at [phone] to request approval for extended ltac services. Auth#[id number], awaiting approval. YOANNA ARAUJO RN - 06/29/19 [...] health and she has been to the [facility] and [facility] in the past. She has the following equipment at home: wheel chair, walker, cane and shower chair. Her discharge plan is to go to rehab prior to returning home. PCP: Flavia MARQUEZ [address] [place] [address] Buyer Intern: Dr. Shemar Barger [phone]. Clemente Del Rio MD - Rheumatology - [address] [place] [address] Preferences: Home Health: [facility]: no preferences DME: [facility] - [address], [place] [address] Longterm: [facility] facility: no preferences Will continue to monitor patient for anticipated discharge needs YOANNA ARAUJO RN - 06/29/19 08:30:20 Yoanna Araujo 06/29/2019 0830 received fax from [facility] with approval for extended ltac coverage with next clinical review due on 07/12/2019. Auth#[id number]. Will continue to follow for anticipated discharge needs. YOANNA ARAUJO, EDDIE - 06/28/19 08:35:06 Yoanna Araujo 06/28/2019 0830 Faxed clinical review to [facility] at to request approval for extended Ltac services. Auth#[id number]. Pending Approval. Documentation Status Complete : Yes СВЕТЛАНА WANG - 07/17/2019 13:39 EDT documented in this encounter Plan of Treatment Not on file documented as of this encounter Visit Diagnoses Not on filedocumented in this encounter
--- OUTSIDE RECORDS SUMMARY | 2024-12-21 10:08 | XMS_ITS | Encounter Summary ---
Author Organization [employer] ([place], [place], [place], [place]) Address [address] [place] [address] Care Team Providers Care Flow Machine Operator Name Role Phone Unavailable Primary Care Provider Unavailabl e Encounter Details Date Type Department Care Team (Late st Contact Info) Description 08/27/2018 Transcribed Document [facility] [place] [facility] [place] [address] ProviderMariela MD [address] [place] [address] Social History Tobacco Use Types Packs/Day Years [...] Electronically signed by Maureen Cornejo Conversion Manufacturing Production Manager Min at 06/16/2022 8:16 PM CDT documented in this encounter Plan of Treatment Not on file documented as of this encounter Visit Diagnoses Not on filedocumented in this encounter
--- OUTSIDE RECORDS SUMMARY | 2024-12-21 10:08 | XMS_ITS | Encounter Summary ---
Author Organization [employer] ([place], [place], [place], [place]) Address [address] [place] [address] Care Team Providers Care Gang Supervisor Name Role Phone Unavailable Primary Care Provider Unavailabl e Encounter Details Date Type Department Care Team (Late st Contact Info) Description 08/21/2020 Transcribed Document [facility] [place] [facility] [place] [address] ProviderMariela MD [address] [place] [address] Social History Tobacco Use Types [...] Policy Numbers : Insurance 1 Health Plan: [facility] MEDICARE ADVANTAGE Policy Number: [id number] Authorization Number: [id number] Insurance Primary Name : [facility] MEDICARE ADVANTAGE Policy Number: [id number] Authorization Status-Primary : Admit approved Reference Number-Primary : [id number] Authorization Number-Primary : [id number] Number of Days Authorized-Primary : 0 Day(s) Authorized Service Begin Date-Primary : 08/20/2020 EDT Authorized Service End Date-Primary : 08/20/2020 EDT Historical Authorization Comments-Primary : Comment 1: Note on [facility] website:Patient was initially scheduled for [...] AQUINO, RN-Utilization Review 08/19/2020 15:20) Comment 2: [facility] Medicare approved per website for 1 day (TIESHA AQUINO RN-Utilization Review 08/19/2020 15:14) KARAN WATSON RN-Utilization Review - 08/21/2020 7:50 EDT documented in this encounter Plan of Treatment Not on file documented as of this encounter Visit Diagnoses Not on filedocumented in this encounter
--- OUTSIDE RECORDS SUMMARY | 2024-12-21 10:08 | XMS_ITS | Encounter Summary ---
Author Organization [employer] ([place], [place], [place], [place]) Address [address] [place] [address] Care Team Providers Care Railroad Yard Worker Name Role Phone Unavailable Primary Care Provider Unavailabl e Encounter Details Date Type Department Care Team (Late st Contact Info) Description 08/21/2020 Transcribed Document [facility] [place] Medicine [facility] [place] [address] ProviderMariela MD [address] [place] [address] Social History Tobacco Use Types [...]
--- OUTSIDE RECORDS SUMMARY | 2024-12-21 10:08 | XMS_ITS | Encounter Summary ---
Author Organization [employer] ([place], [place], [place], [place]) Address [address] [place] [address] Care Team Providers Care Ice Cream Dispenser Name Role Phone Unavailable Primary Care Provider Unavailabl e Encounter Details Date Type Department Care Team (Late st Contact Info) Description 07/18/2019 Transcribed Document [facility] Family Medicine [place] [address] ProviderMariela MD [address] [place] [address] Social History Tobacco Use Types Packs/Day [...]
--- OUTSIDE RECORDS SUMMARY | 2024-12-21 10:08 | XMS_ITS | Encounter Summary ---
Author Organization [employer] ([place], [place], [place], [place]) Address [address] [place] [address] Care Team Providers Care Aligning Inspector Name Role Phone Unavailable Primary Care Provider Unavailabl e Encounter Details Date Type Department Care Team (Late st Contact Info) Description 07/07/2019 Transcribed Document [facility] [place] [facility] [place] [address] ProviderMariela MD [address] [place] [address] Social History Tobacco Use Types Packs/Day Years [...] Historical ProviderMD - 07/07/2019 2:00 AM CDT Water Softener Servicer And Installer Details Entered On: 07/07/2019 0:12 EDT Performed [...]
--- OUTSIDE RECORDS SUMMARY | 2024-12-21 10:09 | XMS_ITS | Encounter Summary ---
Author Organization [employer] ([place], [place], [place], [place]) Address [address] [place] [address] Care Team Providers Care Locomotive Supervisor Name Role Phone Unavailable Primary Care Provider Unavailabl e Encounter Details Date Type Department Care Team (Late st Contact Info) Description 08/29/2018 Transcribed Document [facility] [place] Medicine [facility] [place] [address] ProviderMariela MD [address] [place] [address] Social History Tobacco Use Types Packs/Day [...] 08/29/2018 15:58 EDT by MARY MCGRAW Care Management-Private Branch Exchange Installer Care Management Progress Note Discharge Arrangements : Patient Post-Acute Information Patient Name: SOFIA BARLOW Gender: Female : 44 Age: 78 Years No Post-Acute Placement(s) Listed No Post-Acute Service(s) Listed No Curaspan Referral(s) Listed Discharge Options Discussed with Patient : Home Health, Short term rehabilitation Barriers to Discharge Unresolved : All resolved MARY MCGRAW Care Management-Private Branch Exchange Installer - 08/29/2018 15:58 EDT documented in this encounter Plan of Treatment Not on file documented as of this encounter Visit Diagnoses Not on filedocumented in this encounter
--- OUTSIDE RECORDS SUMMARY | 2024-12-21 10:09 | XMS_ITS | Encounter Summary ---
Author Organization [employer] ([place], [place], [place], [place]) Address [address] [place] [address] Care Team Providers Care Master Naval Parachutist Name Role Phone Unavailable Primary Care Provider Unavailabl e Encounter Details Date Type Department Care Team (Late st Contact Info) Description 07/06/2019 Transcribed Document [facility] Family Medicine [facility] [place] [address] ProviderMariela MD [address] [place] [phone] Social History Tobacco Use Types Packs/Day Years [...] 0.9% 50 mL 2 Gram, IV Piggyback, [id number] cyanocobalamin 1,000 mcg tab 5,000 mcg 5 [...] fluticasone 0.05% nasal spray 100 mcg 2 [place], Nostrils Both, BID magnesium hydroxide 8% liq [...] % 23.0 % Lymph # 1.50 x10(3)/uL [place] % 12.3 % HI [place] # 0.80 K/uL Eos % 3.7 % [...] Collect. Electronically signed by Maureen Cornejo Conversion Outdoor Adventure Instructor Cerner at 06/16/2022 8:21 PM CDT documented in this encounter Plan of Treatment Not on file documented as of this encounter Visit Diagnoses Not on filedocumented in this encounter
--- OUTSIDE RECORDS SUMMARY | 2024-12-21 10:09 | XMS_ITS | Encounter Summary ---
Author Organization [employer] ([place], [place], [place], [place]) Address [address] [place] [address] Care Team Providers Care Dental Technology Advisor Name Role Phone Unavailable Primary Care Provider Unavailabl e Encounter Details Date Type Department Care Team (Late st Contact Info) Description 07/18/2019 Transcribed Document [facility] [place] Medicine [facility] [place] [address] ProviderMariela MD [address] [place] [phone] Social History Tobacco Use Types Packs/Day Years [...] Dr. Saenz office ???Scheduled to go to [facility] facility in a.m. Review of Systems Constitutional: [...] 0.9% 100 mL 2 Gram, IV Piggyback, [id number] cyanocobalamin 1,000 mcg tab 5,000 mcg 5 [...] Oral, Q4H fluticasone 0.05% nasal spray 2 [place], Nostrils Both, BID magnesium hydroxide 8% liq [...] % 21.2 % Lymph # 1.73 x10(3)/uL [place] % 9.7 % HI [place] # 0.79 K/uL Eos % 5.8 % [...] antibiotics as recommended by infectious disease. For [facility] facility in a.m. to continue her care. documented in this encounter Plan of Treatment Not on file documented as of this encounter Visit Diagnoses Not on filedocumented in this encounter
--- OUTSIDE RECORDS SUMMARY | 2024-12-21 10:09 | XMS_ITS | Encounter Summary ---
Author Organization [employer] ([place], [place], [place], [place]) Address [address] [place] [address] Care Team Providers Care Steam Service Inspector Name Role Phone Unavailable Primary Care Provider Unavailabl e Encounter Details Date Type Department Care Team (Late st Contact Info) Description 08/29/2018 Transcribed Document [facility] [place] Medicine [facility] [place] [address] ProviderMariela MD [address] [place] [address] Social History Tobacco Use Types Packs/Day [...] 08/29/18 Primary Care Provider NILA CHO, [facility] Discharge Diagnosis Status post total right [...] incision uncovered if it is completely dry. [place] out 2 weeks post op. 6) An [...] Home with Home Care Discharge Follow Up [facility] - SOLOMON MCCRACKEN PA-C - [...] 1-Time fluticasone 50 mcg/inh nasal spray 2 [place], PRN, Nostrils Both, BID gabapentin 300 mg [...]
--- OUTSIDE RECORDS SUMMARY | 2024-12-21 10:09 | XMS_ITS | Encounter Summary ---
Author Organization [employer] ([place], [place], [place], [place]) Address [address] [place] [address] Care Team Providers Care Plant Wire Chief Name Role Phone Unavailable Primary Care Provider Unavailabl e Encounter Details Date Type Department Care Team (Late st Contact Info) Description 08/28/2018 Transcribed Document [facility] [place] Family Medicine [address] [place] [address] ProviderMariela MD [address] [place], [place] [phone] Social History Tobacco Use Types Packs/Day Years [...]
--- OUTSIDE RECORDS SUMMARY | 2024-12-21 10:09 | XMS_ITS | Encounter Summary ---
Author Organization [employer] ([place], [place], [place], [place]) Address [address] [place] [address] Care Team Providers Care Net Making Supervisor Name Role Phone Unavailable Primary Care Provider Unavailabl e Encounter Details Date Type Department Care Team (Late st Contact Info) Description 08/29/2018 Transcribed Document [facility] [place] Family Medicine [facility] [place] [address] ProviderMariela MD [address] [place] [phone] Social History Tobacco Use Types Packs/Day Years [...]
--- OUTSIDE RECORDS SUMMARY | 2024-12-21 10:09 | XMS_ITS | Encounter Summary ---
Author Organization [facility] ([place], [place], [place], [place]) Address [address] [place] [address] Care Team Providers Care Insole And Outsole Splitter Name Role Phone Unavailable Primary Care Provider Unavailabl e Encounter Details Date Type Department Care Team (Late st Contact Info) Description 07/07/2019 Transcribed Document [facility] [place] [facility] [place] [address] ProviderMariela MD [address] [place] [address] Social History Tobacco Use Types Packs/Day Years [...]
--- OUTSIDE RECORDS SUMMARY | 2024-12-21 10:09 | XMS_ITS | Encounter Summary ---
Author Organization [employer] ([place], [place], [place], [place]) Address [address] [place] [address] Care Team Providers Care Numerical Control Machine Operator Name Role Phone Unavailable Primary Care Provider Unavailabl e Encounter Details Date Type Department Care Team (Late st Contact Info) Description 07/06/2019 Transcribed Document [facility] [place] [address] [place] [address] ProviderMariela MD [address] [place], [place] [phone] Social History Tobacco Use Types Packs/Day Years [...] 07/06/2019 3:14 EDT Electronically signed by Chantal [facility] Conversion Field Broomer Min at 06/16/2022 8:23 PM CDT documented in this encounter Plan of Treatment Not on file documented as of this encounter Visit Diagnoses Not on filedocumented in this encounter
--- OUTSIDE RECORDS SUMMARY | 2024-12-21 10:09 | XMS_ITS | Encounter Summary ---
Author Organization [employer] ([place], [place], [place], [place]) Address [address] [place] [address] Care Team Providers Care Regional Psychiatric Director Name Role Phone Unavailable Primary Care Provider Unavailabl e Encounter Details Date Type Department Care Team (Late st Contact Info) Description 08/29/2018 Transcribed Document [facility] [place] Family Medicine [address] [place] [address] ProviderMariela MD [address], [place] [phone] Social History Tobacco Use Types Packs/Day Years [...]
--- OUTSIDE RECORDS SUMMARY | 2024-12-21 10:09 | XMS_ITS | Encounter Summary ---
Author Organization [employer] ([place], [place], [place], [place]) Address [address] [place] [address] Care Team Providers Care Environmental Services Coordinator Name Role Phone Unavailable Primary Care Provider Unavailabl e Encounter Details Date Type Department Care Team (Late st Contact Info) Description 06/23/2019 Transcribed Document [facility] [place] [facility] [address] ProviderMariela MD [facility] [address] Social History Tobacco Use Types [...] On: 06/23/2019 11:41 EDT by DEBORAH CAMPOS RN-Business And Marketing TeacherTeacher Instrumental Progress Note Discharge Arrangements : Patient Post-Acute Information Patient Name: SOFIA GILL Gender: Female : 44 Age: 79 Years No Post-Acute Placement(s) Listed No Post-Acute Service(s) Listed No Curaspan Referral(s) Listed DEBORAH CAMPOS RN-Business And Marketing Teacher - 06/23/2019 17:10 EDT Barriers to Discharge [...] Attend Multidisciplinary Rounds? : No DEBORAH CAMPOS RN-Business And Marketing Teacher - 06/23/2019 11:41 EDT Narrative Progress Note Narrative Progress Note : RECEIVED CALL FROM [facility] WITH [facility]..PATIENT HAS BEEN ACCEPTED AND THEY WILL HAVE A BED SOMETIME NEXT WEEK..CM WILL CONTINUE TO FOLLOW AND INFORM DR DRIVER OF THE ABOVE..LM SPOKE WITH PT AT BEDSIDE AND SHE IS AWARE THAT L-TACH HAS STARTED A PRECERT AND HOPEFULLY WILL HAVE BED AVAILABLE ON WEDNESDAY PENDING AUTHORIZATION..DR DRIVER AWARE..LM Historical Progress Note : Sent referral to LTACH through [facility]..........MIKE Adam RN-Business And Marketing Teacher - 06/21/19 16:57:54 Was planning for AKA, now patient will undergo a total joint revision with I&D. Will continue to follow.............MIKE Adam RN-Business And Marketing Teacher - 06/21/19 16:36:10 PICC line placed, Per LID, plan for meterman IV abx. Surgery scheduled for today................MIKE Adam RN-Business And Marketing Teacher - 06/21/19 10:06:05 No MDR this AM with provider. Patient with low-grade fever this AM and throughout the night. LAKA was rescheduled for 06/20 for this reason. CM will continue to follow. Halima Tripathi, EDDIE-PICKER TENDER - 06/20/19 11:50:51 Patient becoming more agitated and confused, refusing to wear oxygen. Patient now on CPAP, WBC increased, BC x2 positive for group b Strep. Dr Saenz to perform AKA tomorrow morning. Will continue to follow..............MIKE Adam RN-Business And Marketing Teacher - 06/19/19 11:35:19 DEBORAH CAMPOS RN-Business And Marketing Teacher - 06/23/2019 17:10 EDT Electronically signed by Maureen Corenjo Conversion Logistics Operations Manager Cerner at 06/16/2022 8:16 PM CDT documented in this encounter Plan of Treatment Not on file documented as of this encounter Visit Diagnoses Not on filedocumented in this encounter
--- OUTSIDE RECORDS SUMMARY | 2024-12-21 10:09 | XMS_ITS | Encounter Summary ---
Author Organization [employer] ([place], [place], [place], [place]) Address [address] [place] [address] Care Team Providers Care Hair Stylist Name Role Phone Unavailable Primary Care Provider Unavailabl e Encounter Details Date Type Department Care Team (Late st Contact Info) Description 07/19/2019 Transcribed Document [facility] [place] [facility] [place] [address] ProviderMariela MD [address] [place] [address] Social History Tobacco Use Types [...] provider. This is important. Medicines ??? Take bfnb-jth-unbvown and prescription medicines only as told by [...] 02/15/2006 Document Revised: 10/26/2018 Document Reviewed: 10/26/2018 [employer] Interactive Patient Education ? 2019 [employer] How to Use a Knee Immobilizer [...] 02/01/2017 Elsevier Interactive Patient Education ? 2019 [employer] documented in this encounter Plan of Treatment Not on file documented as of this encounter Visit Diagnoses Not on filedocumented in this encounter
--- OUTSIDE RECORDS SUMMARY | 2024-12-21 10:09 | XMS_ITS | Encounter Summary ---
Author Organization [employer] ([place], [place], [place], [place]) Address [address] [place] [address] Care Team Providers Care Patrol Supervisor Name Role Phone Unavailable Primary Care Provider Unavailabl e Encounter Details Date Type Department Care Team (Late st Contact Info) Description 07/18/2019 Transcribed Document [facility] [place] Family Medicine [address] [place] [address] ProviderMariela MD [address] [place], [place] [phone] Social History Tobacco Use Types Packs/Day Years [...]
--- OUTSIDE RECORDS SUMMARY | 2024-12-21 10:09 | XMS_ITS | Encounter Summary ---
Author Organization [employer] ([place], [place], [place], [place]) Address [address] [place] [address] Care Team Providers Care Financial Foundations Associate Name Role Phone Unavailable Primary Care Provider Unavailabl e Encounter Details Date Type Department Care Team (Late st Contact Info) Description 06/23/2019 Transcribed Document [facility] [place] [address] [place] [address] ProviderMariela MD [address] [place], [place] [phone] Social History Tobacco Use Types Packs/Day Years [...]
--- OUTSIDE RECORDS SUMMARY | 2024-12-21 10:09 | XMS_ITS | Encounter Summary ---
Author Organization [employer] ([place], [place], [place], [place]) Address [address] [place] [address] Care Team Providers Care Heating Plant Superintendent Name Role Phone Unavailable Primary Care Provider Unavailabl e Encounter Details Date Type Department Care Team (Late st Contact Info) Description 08/29/2018 Transcribed Document [facility] [place] Family Medicine [facility] [place] [address] ProviderMariela MD [address] [place] [address] Social History Tobacco Use Types Packs/Day Years [...] Historical ProviderMD - 08/29/2018 2:00 AM CDT Trapper Bird Details Entered On: 08/29/2018 5:50 EDT Performed [...] 08/29/2018 5:49 EDT Electronically signed by Chantal [facility] Conversion Capture Manager Cerner at 06/16/2022 8:17 PM CDT documented in this encounter Plan of Treatment Not on file documented as of this encounter Visit Diagnoses Not on filedocumented in this encounter
--- OUTSIDE RECORDS SUMMARY | 2024-12-21 10:09 | XMS_ITS | Encounter Summary ---
Author Organization [employer] ([place], [place], [place], [place]) Address [address] [place] [address] Care Team Providers Care Crew Trainer Name Role Phone Unavailable Primary Care Provider Unavailabl e Encounter Details Date Type Department Care Team (Late st Contact Info) Description 08/29/2018 Transcribed Document [facility] [place] [facility] [place] [address] ProviderMariela MD [facility] [place], [place] [id number] Social History Tobacco Use Types Packs/Day Years [...] allow safe household or facility ambulation upon [facility] care [place]. Patient will participate with [...] CHAITANYA SIMON, PT - 08/29/2018 11:10 EDT [facility] Charg[facility] PT Therap. Exercise 15 min : 1 Gait Training Each 15 Min : 1 PT Eval Low Complexity : 1 CHAITANYA SIMON, PT - 08/29/2018 11:10 EDT documented in this encounter Plan of Treatment Not on file documented as of this encounter Visit Diagnoses Not on filedocumented in this encounter
--- OUTSIDE RECORDS SUMMARY | 2024-12-21 10:09 | XMS_ITS | Encounter Summary ---
Author Organization [employer] ([place], [place], [place], [place]) Address [address] [place] [address] Care Team Providers Care Email Campaign Specialist Name Role Phone Unavailable Primary Care Provider Unavailabl e Encounter Details Date Type Department Care Team (Late st Contact Info) Description 08/29/2018 Transcribed Document [facility] [place] Medicine [facility] [place] [address] ProviderMariela MD [address] [place] [address] Social History Tobacco Use Types Packs/Day [...] 08/29/2018 8:26 EDT by MARY MCGRAW Care Management-Garbage Pick Up Man Care Management Progress Note Discharge Arrangements : [...] Clinical Condition of Patient MARY MCGRAW Care Management-Garbage Pick Up Man - 08/29/2018 8:26 EDT Narrative Progress Note Narrative Progress Note : updated clinical sent to Trevor Rosas, for precert MARY MCGRAW, Care Management-Garbage Pick Up Man - 08/29/2018 8:26 EDT Electronically signed by Chantal [facility] Conversion Bleach Chlorinator Cerner at 06/16/2022 8:09 PM CDT documented in this encounter Plan of Treatment Not on file documented as of this encounter Visit Diagnoses Not on filedocumented in this encounter
--- OUTSIDE RECORDS SUMMARY | 2024-12-21 10:09 | XMS_ITS | Encounter Summary ---
Author Organization [employer] ([place], [place], [place], [place]) Address [address] [place] [address] Care Team Providers Care Assembly Manager Name Role Phone Unavailable Primary Care Provider Unavailabl e Encounter Details Date Type Department Care Team (Late st Contact Info) Description 07/06/[address] [facility] [place] [facility] [place] [address] ProviderMariela MD [address] [place] [address] Social History Tobacco Use Types Packs/Day Years [...] Historical ProviderMD - 07/06/2019 2:00 AM CDT Liquid Natural Gas Plant Operator Details Entered On: 07/06/2019 3:12 EDT Performed [...] 07/06/2019 3:09 EDT Electronically signed by Chantal [facility] Conversion Aix Architect Cerner at 06/16/2022 8:29 PM CDT documented in this encounter Plan of Treatment Not on file documented as of this encounter Visit Diagnoses Not on filedocumented in this encounter
--- OUTSIDE RECORDS SUMMARY | 2024-12-21 10:09 | XMS_ITS | Encounter Summary ---
Author Organization [employer] ([place], [place], [place], [place]) Address [address] [place] [address] Care Team Providers Care Seed Corn Production Manager Name Role Phone Unavailable Primary Care Provider Unavailabl e Encounter Details Date Type Department Care Team (Late st Contact Info) Description 07/18/2019 Transcribed Document [facility] [place] [address] [place] [address] ProviderMariela MD [address] [place] [address] Social History Tobacco Use Types Packs/Day Years [...] EDT Electronically signed by Maureen Cornejo Conversion Dimension Warehouse Supervisor Titusner at 06/16/2022 8:12 PM CDT documented in this encounter Plan of Treatment Not on file documented as of this encounter Visit Diagnoses Not on filedocumented in this encounter
--- OUTSIDE RECORDS SUMMARY | 2024-12-21 10:09 | XMS_ITS | Encounter Summary ---
Author Organization [employer] ([place], [place], [place], [place]) Address [address] [place] [address] Care Team Providers Care Nurse Advisor Name Role Phone Unavailable Primary Care Provider Unavailabl e Encounter Details Date Type Department Care Team (Late st Contact Info) Description 07/07/2019 Transcribed Document [facility] [place] [facility] [place] [address] ProviderMariela MD [address] [place], [place] [id number] Social History Tobacco Use Types Packs/Day Years [...]
--- OUTSIDE RECORDS SUMMARY | 2024-12-21 10:09 | XMS_ITS | Encounter Summary ---
Author Organization [employer] ([place], [place], [place], [place]) Address [address] [place] [address] Care Team Providers Care Ordering Box Operator Name Role Phone Unavailable Primary Care Provider Unavailabl e Encounter Details Date Type Department Care Team (Late st Contact Info) Description 08/22/[address] [facility] [place] Family Medicine [facility] [place] [address] ProviderMariela MD [address] [place] [address] Social History Tobacco Use Types [...]
--- OUTSIDE RECORDS SUMMARY | 2024-12-21 10:09 | XMS_ITS | Encounter Summary ---
Author Organization [employer] ([place], [place], [place], [place]) Address [address] [place] [address] Care Team Providers Care Vp Security Name Role Phone Unavailable Primary Care Provider Unavailabl e Encounter Details Date Type Department Care Team (Late st Contact Info) Description 06/23/2019 Transcribed Document [facility] [place] [facility] [place] [address] ProviderMariela MD [address] [place] [address] Social History Tobacco Use Types Packs/Day Years [...] Historical ProviderMD - 06/23/2019 2:00 AM CDT Academic Support Coordinator Details Entered On: 06/23/2019 0:52 EDT Performed [...] 06/23/2019 0:52 EDT Electronically signed by Chantal [facility] Conversion Marketing Programs Manager Cerner at 06/16/2022 8:12 PM CDT documented in this encounter Plan of Treatment Not on file documented as of this encounter Visit Diagnoses Not on filedocumented in this encounter
--- OUTSIDE RECORDS SUMMARY | 2024-12-21 10:09 | XMS_ITS | Encounter Summary ---
Author Organization [employer] ([place], [place], [place], [place]) Address [address] [place] [address] Care Team Providers Care Lead Mechanical Engineer Name Role Phone Unavailable Primary Care Provider Unavailabl e Encounter Details Date Type Department Care Team (Late st Contact Info) Description 08/22/2020 Transcribed Document [facility] [place] [facility] [place] [address] ProviderMariela MD [address] [place] [address] Social History Tobacco Use Types Packs/Day [...]
--- OUTSIDE RECORDS SUMMARY | 2024-12-21 10:09 | XMS_ITS | Encounter Summary ---
Author Organization [employer] ([place], [place], [place], [place]) Address [address] [place] [address] Care Team Providers Care Rigging Man Name Role Phone Unavailable Primary Care Provider Unavailabl e Encounter Details Date Type Department Care Team (Late st Contact Info) Description 06/23/2019 Transcribed Document [facility] [place] [address] [place] [address] ProviderMariela MD [address] [place], [place] [id number] Social History Tobacco Use Types Packs/Day Years [...] Vidhi Bailey RN - 06/23/2019 18:48 EDT documented in this encounter Plan of Treatment Not on file documented as of this encounter Visit Diagnoses Not on filedocumented in this encounter
--- OUTSIDE RECORDS SUMMARY | 2024-12-21 10:09 | XMS_ITS | Encounter Summary ---
Author Organization [employer] ([place], [place], [place], [place]) Address [address] [place] [address] Care Team Providers Care Instrumental Musician Name Role Phone Unavailable Primary Care Provider Unavailabl e Encounter Details Date Type Department Care Team (Late st Contact Info) Description 08/22/2020 Transcribed Document [facility] [place] [facility] [place] [address] ProviderMariela MD [address] [place] [address] Social History Tobacco Use Types [...] form. Electronically signed by Chantal, Maureen Conversion Superintendent Oil Well Services Cerner at 06/16/2022 8:10 PM CDT documented in this encounter Plan of Treatment Not on file documented as of this encounter Visit Diagnoses Not on filedocumented in this encounter
--- OUTSIDE RECORDS SUMMARY | 2024-12-21 10:09 | XMS_ITS | Encounter Summary ---
Author Organization [employer] ([place], [place], [place], [place]) Address [address] [place] [address] Care Team Providers Care Roll Weigher Name Role Phone Unavailable Primary Care Provider Unavailabl e Encounter Details Date Type Department Care Team (Late st Contact Info) Description 06/23/2019 Transcribed Document [facility] [place] [facility] [place] [address] ProviderMariela MD [address] [place], [place] [id number] Social History Tobacco Use Types Packs/Day Years [...]
--- OUTSIDE RECORDS SUMMARY | 2024-12-21 10:09 | XMS_ITS | Encounter Summary ---
Author Organization [employer] ([place], [place], [place], [place]) Address [address] [place] [address] Care Team Providers Care Water Technician Name Role Phone Unavailable Primary Care Provider Unavailabl e Encounter Details Date Type Department Care Team (Late st Contact Info) Description 06/23/2019 Transcribed Document [facility] [place] [facility] [place] [address] ProviderMariela MD [facility] [place] [address] Social History Tobacco Use Types [...] (JUN 19) L 1.5 (JUN 18) Micro: [facility]: 06/15 [facility] Blood cultures positive for group B strep and 2/2 bottles SJE: 06/16 fluid aspiration of left knee shows 118,150 white blood cells, GPC 06/16 repeat blood cultures with Group B Strep 06/16 MRSA surveillance culture and pro/pending 06/16 Urine culture in process/pending Rad: Radiology Results (Last 48 hours) [id number] -- 06/16/2019 21:08 CR Knee 1 or [...]
--- OUTSIDE RECORDS SUMMARY | 2024-12-21 10:09 | XMS_ITS | Encounter Summary ---
Author Organization [employer] ([place], [place], [place], [place]) Address [address] [place] [address] Care Team Providers Care Meat Stringer Name Role Phone Unavailable Primary Care Provider Unavailabl e Encounter Details Date Type Department Care Team (Late st Contact Info) Description 08/28/2018 Transcribed Document [facility] [place] [facility] [place] [address] ProviderMariela MD [address] [place] [address] Social History Tobacco Use Types Packs/Day Years [...]
--- OUTSIDE RECORDS SUMMARY | 2024-12-21 10:09 | XMS_ITS | Encounter Summary ---
Author Organization [employer] ([place], [place], [place], [place]) Address [address] [place] [address] Care Team Providers Care Machine Sneller Name Role Phone Unavailable Primary Care Provider Unavailabl e Encounter Details Date Type Department Care Team (Late st Contact Info) Description 08/22/2020 Transcribed Document [facility] [place] [facility] [place] [address] ProviderMariela MD [address] [place] [address] Social History Tobacco [...] Historical ProviderMD - 08/22/2020 2:00 AM CDT Flow Match Sofa Cutter Details Entered On: 08/22/2020 0:01 EDT Performed [...] Caitlyn Fallon Rn - 08/22/2020 0:01 EDT Electronically signed by Maureen Cornejo Conversion Carpet Finishing Supervisor Cerner at 06/16/2022 8:20 PM CDT documented in this encounter Plan of Treatment Not on file documented as of this encounter Visit Diagnoses Not on filedocumented in this encounter
--- OUTSIDE RECORDS SUMMARY | 2024-12-21 10:10 | XMS_ITS | Encounter Summary ---
Author Organization [employer] ([place], [place]) Address [address] [place] [address] Care Team Providers Care Welfare Eligibility Worker Name Role Phone Unavailable Primary Care Provider Unavailabl e Encounter Details Date Type Department Care Team (Late st Contact Info) Description 07/19/2019 Transcribed Document [facility] [place] [facility] [address] ProviderMariela MD [address] [place] [address] Social History Tobacco Use Types Packs/Day [...] Gates MD - 07/19/2019 2:03 PM CDT [address] [address] SOFIA GILL :1940 Visit Time:06/26/2019 [...] Instructions From Your Care Team Discharge to [facility] 07/19/2019 @ 1400 (Maria L wheelchair van) Call report to [phone] Fax DC summary to [phone] Discharge Follow Up Instructions: F/U with dr cordova as kary.F/U with dr lopez as kary, Order Comment: Follow-up with PCP as scheduled or PRN Activity: PER DR MONAHAN RECOMMENDATIONS, Discharge Activity: Other (use Special Instructions) Diet: Discharge Diet: Resume usual diet as tolerated Follow-Up Appointments Follow Up with NIMO EPPS MD-ORT When 08/17/2019 01:30 PM EDT Comments Ortho follow-up Where: [address] [place], [place] [id number]- [phone] Follow Up with ARA STOCK MD-INF When 07/25/2019 04:00 PM EDT Comments ID Follow-up. TELEHEALTH appt with Dr. Stock. The office will call [facility] to facilitate this visit. Where: [address] [id number]- Follow Up with ANDREW OQUENDO MD-INT When Comments Admitting physician @ [facility] Where: Warfarin Instructions Notify Provider of Signs/Symptoms of: Significant bleeding, Clot Medications What How Much When Instructions Next Dose acetaminophen-hydrocodone (Ericson 7.5 mg-325 mg oral tablet) 1 Tablet(s) [...] (fluticasone 50 mcg/ inh nasal spray) 2 [place](s) Nostrils Both Two Times A Day as [...] other medicines or supplements? Many prescription and mosj-dfs-vtxfsfl medicines can interfere with warfarin. Talk with your health care provider or your pharmacist before starting or stopping any new medicines. This includes vzqw-lhh-cyevvgh vitamins, dietary supplements, herbal medicines, and pain medicines. Your warfarin dosage may need to be adjusted. ??? Some common nzin-ejr-toytqmd medicines that may increase the risk of [...] that you work with a diet and clarity specialists (dietitian). ??? Vitamin K decreases the effect [...] cooked. ??? Collards, raw or cooked. ??? [place] chard, raw or cooked. ??? Mustard greens, raw or cooked. ??? Turnip greens, raw or cooked. ??? Parsley, raw. ??? Broccoli, cooked. ??? Noodles, eggs, and spinach, enriched. ??? Rising Sun sprouts, raw or cooked. ??? Beet greens, [...] diet. ??? You start or stop any ewfv-aeb-xinpbgi medicine, prescription medicine, or dietary supplement. ??? [...] 02/15/2006 Document Revised: 06/21/2017 Document Reviewed: 05/13/2016 [employer] Interactive Patient Education ?? 2019 [employer]. Hypertension, Adult High blood pressure (hypertension) is [...] provider. This is important. Medicines ??? Take mbtb-zit-jdbsvza and prescription medicines only as told by [...] 02/15/2006 Document Revised: 10/26/2018 Document Reviewed: 10/26/2018 [employer] Interactive Patient Education ?? 2019 [employer] How to Use a Knee Immobilizer [...] 02/15/2006 Document Revised: 02/01/2017 Document Reviewed: 02/01/2017 [employer] Interactive Patient Education ?? 2019 [employer]. Emergency Awareness and Preventative Care STROKE is [...] Assistance with quitting is available by contacting 3-111-THKS-NOW. This is a free resource providing counseling, [...] range between ( 0.0 and 7.0 ) Candler #: 0.79 K/uL -- Normal range between ( 0.16 and 1.00 ) Eos #: 0.47 x10(3)/uL -- Normal range between ( 0.00 and 0.80 ) Candler %: 9.7 % -- Normal range between [...] was given the opportunity to ask questions. Patient/Aircraft Maintenance Instructor Name: Patient/Aircraft Maintenance Instructor Signature: Relationship to Patient: Clinician/Hospital Aircraft Maintenance Instructor Signature: Date: documented in this encounter Plan of Treatment Not on file documented as of this encounter Visit Diagnoses Not on filedocumented in this encounter
--- OUTSIDE RECORDS SUMMARY | 2024-12-21 10:10 | XMS_ITS | Encounter Summary ---
Author Organization [employer] ([place], [place], [place], [place]) Address [address] [place] [address] Care Team Providers Care Rv Repair Technician Name Role Phone Unavailable Primary Care Provider Unavailabl e Encounter Details Date Type Department Care Team (Late st Contact Info) Description 07/08/[address] [facility] [place] [address] [place] [address] ProviderMariela MD [address] [place], [place] [id number] Social History Tobacco Use Types Packs/Day Years [...]
--- OUTSIDE RECORDS SUMMARY | 2024-12-21 10:10 | XMS_ITS | Encounter Summary ---
Author Organization [employer] ([place], [place], [place], [place]) Address [address] [place] [address] Care Team Providers Care Cross Enterprise Integrator Name Role Phone Unavailable Primary Care Provider Unavailabl e Encounter Details Date Type Department Care Team (Late st Contact Info) Description 08/22/2020 Transcribed Document [facility] [place] [facility] [place] [address] ProviderMariela MD [address] [place] [address] Social History Tobacco Use Types [...] MD orders. 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
--- OUTSIDE RECORDS SUMMARY | 2024-12-21 10:10 | XMS_ITS | Encounter Summary ---
Author Organization [employer] ([place], [place], [place], [place]) Address [address] [place] [address] Care Team Providers Care Manager School Name Role Phone Unavailable Primary Care Provider Unavailabl e Encounter Details Date Type Department Care Team (Late st Contact Info) Description 07/07/2019 Transcribed Document [facility] [place] [address] ProviderMariela MD [address] [place] [id number] Social History Tobacco Use Types Packs/Day Years [...] 0.9% 50 mL 2 Gram, IV Piggyback, [id number] cyanocobalamin 1,000 mcg tab 5,000 mcg 5 [...] Oral, Q4H fluticasone 0.05% nasal spray 2 Arabi, Nostrils Both, BID magnesium hydroxide 8% liq [...] % 25.0 % Lymph # 1.57 x10(3)/uL Surry % 12.1 % HI Surry # 0.76 K/uL Eos % 4.8 % [...] % 23.0 % Lymph # 1.50 x10(3)/uL [place]ry % 12.3 % HI Sur[place] # 0.80 K/uL Eos % 3.7 % [...] Refill(s) fluticasone 50 mcg/inh nasal spray: 2 Arabi, Nostrils Both, Arabi, BID, PRN Allergies, 0 Refill(s) furosemide 40 [...]
--- OUTSIDE RECORDS SUMMARY | 2024-12-21 10:10 | XMS_ITS | Encounter Summary ---
Author Organization [employer] ([place], [place], [place], [place]) Address [address] [place] [address] Care Team Providers Care Bottle Line Worker Name Role Phone Unavailable Primary Care Provider Unavailabl e Encounter Details Date Type Department Care Team (Late st Contact Info) Description 08/22/2020 Transcribed Document [facility] [place] [facility] [place] [address] ProviderMariela MD [address] [place] [address] Social History Tobacco Use Types [...]
--- OUTSIDE RECORDS SUMMARY | 2024-12-21 10:10 | XMS_ITS | Encounter Summary ---
Author Organization [employer] ([place], [place], [place], [place]) Address [address] [place] [address] Care Team Providers Care Pitch Gatherer Name Role Phone Unavailable Primary Care Provider Unavailabl e Encounter Details Date Type Department Care Team (Late st Contact Info) Description 08/22/2020 Transcribed Document [facility] [place] [address] [place] [address] ProviderMariela MD [address] [place] [address] Social History Tobacco Use Types [...] 08/22/2020 18:40 EDT Electronically signed by Chantal [facility] Conversion Defence Force Member Other Ranks Cerbryce at 06/16/2022 8:18 PM CDT documented in this encounter Plan of Treatment Not on file documented as of this encounter Visit Diagnoses Not on filedocumented in this encounter
--- OUTSIDE RECORDS SUMMARY | 2024-12-21 10:10 | XMS_ITS | Encounter Summary ---
Author Organization [employer] ([place], [place], [place], [place]) Address [address] [place] [address] Care Team Providers Care Roving Tester Laboratory Name Role Phone Unavailable Primary Care Provider Unavailabl e Encounter Details Date Type Department Care Team (Late st Contact Info) Description 08/22/2020 Transcribed Document [facility] [place] [address] ProviderMariela MD [address] [place] [address] Social History Tobacco Use Types [...] Spiritual Care Spiritual Care Referred by : Senior Research Manager initiated Reason for Visit : Initial [...] her situation. Invited her to request a cuff setter overlock for further visits if she wants. Spiritual/Emotional Acuity : Low Spiritual Framework : Unknown Anabaptism Preference : Zoroastrian, Unknown JASON DÍAZ, Senior Research Manager - 08/22/2020 13:08 EDT Electronically signed by [facility] Conversion X Ray Equipment Servicer Cerner at 06/16/2022 8:13 PM CDT documented in this encounter Plan of Treatment Not on file documented as of this encounter Visit Diagnoses Not on filedocumented in this encounter
--- OUTSIDE RECORDS SUMMARY | 2024-12-21 10:10 | XMS_ITS | Encounter Summary ---
Author Organization [employer] ([place], [place], [place], [place]) Address [address] [place] [address] Care Team Providers Care Document Coordinator Name Role Phone Unavailable Primary Care Provider Unavailabl e Encounter Details Date Type Department Care Team (Late st Contact Info) Description 07/18/2019 Transcribed Document [facility] [place] [facility] [place] [address] ProviderMariela MD [address] [place] [address] Social History Tobacco Use Types Packs/Day Years [...]
--- OUTSIDE RECORDS SUMMARY | 2024-12-21 10:10 | XMS_ITS | Encounter Summary ---
Author Organization [employer] ([place], [place], [place], [place]) Address [address] [place] [address] Care Team Providers Care Lumber Salvager Name Role Phone Unavailable Primary Care Provider Unavailabl e Encounter Details Date Type Department Care Team (Late st Contact Info) Description 07/07/2019 Transcribed Document [facility] [place] [facility] [place] [address] ProviderMariela MD [facility] [place] [id number] Social History Tobacco Use Types Packs/Day Years [...] : 07/05/2019 EDT Interdisciplinary Rounds Participants : club manager, Dietitian, Pharmacist, Physical Therapy, Other: WOCN [...]
--- OUTSIDE RECORDS SUMMARY | 2024-12-21 10:10 | XMS_ITS | Referral Summary ---
Author Organization [employer] ([place], [place], [place], [place]) Address [address] [place] [address] Care Team Providers Care Police Matron Name Role Phone Unavailable Primary Care Provider [...]
--- OUTSIDE RECORDS SUMMARY | 2024-12-21 10:10 | XMS_ITS | Clinical Summary ---
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 (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 07/20 Aurelia Soto Leukemoid reaction Group B strep agalactiae Sepsis A40.1 (ICD-10-CM ) 07/20 Active 07/20 Aurelia Soto Sepsis due to streptococcus, group B Group B streptococcu s agalactiae infection 694494536 (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 07/20 Aurelia Soto Streptococcus agalactiae infection Disruption of external operation (surgical) wound, subsequent encounter(s) T81.31xD (ICD-10-CM ) 05/08 Resolved 05/08 Aurelia Valera Disruption of external operation (surgical) wound, not elsewhere classified, subsequent encounter long-term (current) use of suppressive antibiotics Z79.2 (ICD-10-CM ) 05/08 Resolved 05/08 Aurelia Valera 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 Benign Essential Hypertension 4099723 (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 07/20 Aurelia Soto Benign essential hypertension ESR, elevated 619719152 (SNOMED CT) Resolved Aurelia Valera Erythrocyte sedimentation rate above reference range 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 (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) use of suppressive antibiotics Z79.2 (ICD-10-CM ) 05/08 Removed 05/08 Aurelia Valera long-term (current) use of antibiotics Disruption of external operation (surgical) wound, subsequent encounter(s) T81.31xD (ICD-10-CM ) 05/08 Removed 05/08 Aurelia Valera Disruption of external operation (surgical) wound, not elsewhere classified, subsequent encounter Adverse drug reaction 089249340 (SNOMED CT) 03/17 Inactive 03/17 Aurelia Valera Opioid analgesic adverse reaction Stasis dermatitis 31617904 (SNOMED CT) 03/09 Active 03/09 Carlos Wright MD Stasis dermatitis Adverse drug reaction 595021896 (SNOMED CT) 03/17 Removed 03/17 Carlos Wright MD Opioid analgesic adverse reaction ESR, elevated 950842382 (SNOMED CT) Removed Carlos Wright MD Erythrocyte [...] of LLE L03.116 (ICD-10-CM ) Active Aurelia Valear Cellulitis of left lower limb Other obesity due to excess calories 027218323 (SNOMED CT) Inactive Eileen Aiken Simple obesity Medications Medication Instructions Start Date Stop Date Generic Name NDC Provider DOXYCYCLINE MONOHYDRATE 100 MG CAPS Take 1 capsule by mouth once a day doxycycline monohydrate 79686997083 Karrie Isabel DOXYCYCLINE MONOHYDRATE 100 MG CAPS TAKE 1 CAPSULE BY MOUTH DAILY doxycycline monohydrate 05346480365 Tyrell Stock MD DOXYCYCLINE HYCLATE 100 MG CAPS TAKE 1 CAPSULE BY MOUTH ONCE DAILY DIRECTED doxycycline hyclate 11764934817 Tyrell Stock MD CEPHALEXIN 500 MG CAPS TAKE 1 CAPSULE BY MOUTH ONCE DAILY 0 06/12 cephalexin 99641999449 Tyrell Stock MD DOXYCYCLINE MONOHYDRATE 100 MG CAPS Take 1 capsule by mouth once a day 0 4 doxycycline monohydrate 34416272994 Tyrell Stock MD CEPHALEXIN 500 MG CAPS Take 1 capsule by mouth once a day 0 4 cephalexin 39913839413 Tyrell Stock MD CEPHALEXIN 500 MG CAPS Take 1 capsule by mouth once a day 0 3 cephalexin 39448889370 Leonor Torres RN CEPHALEXIN 500 MG CAPS TAKE 1 CAPSULE BY MOUTH ONCE DAILY 0 06/12 cephalexin 34185991407 Tyrell Stock MD DOXYCYCLINE MONOHYDRATE 100 MG CAPS Take 1 capsule by mouth once a day 009 doxycycline monohydrate 37894526389 Tyrell Stock MD CEPHALEXIN 500 MG CAPS Take 1 capsule by mouth once a day 0/09 cephalexin 92559705715 Tyrell Stock MD CEPHALEXIN 500 MG CAPS Take 1 capsule by mouth once a day 0 1 cephalexin 96715929882 Tyrell Stock MD DOXYCYCLINE HYCLATE 100 MG CAPS Take 1 capsule by mouth once a day 0 4 doxycycline hyclate 99725539727 Tyrell Stock MD CEPHALEXIN 500 MG CAPS Take 1 capsule by mouth once a day 0 07/18 cephalexin 27959917821 Tyrell Stock MD HYDROCODONE-ACETAM INOPHEN 5-325 MG TABS 016 hydrocodone-aceta minophen 74283718472 Karrie Sharma DOXYCYCLINE HYCLATE 100 MG CAPS TAKE 1 CAPSULE BY MOUTH ONCE DAILY 0 06/15 doxycycline hyclate 72392780338 Tyrell Stock MD CEPHALEXIN 500 MG CAPS Take 1 capsule by mouth once a day TAKE 1 CAPSULE BY MOUTH ONCE DAILY 0 06/15 cephalexin 83072816349 Tyrell Stock MD CEPHALEXIN 500 MG CAPS Take 1 capsule by mouth once a day 0 06/09 cephalexin 78079364828 Tyrell Stock MD DOXYCYCLINE HYCLATE 100 MG CAPS Take 1 capsule by mouth once a day 0 06/09 doxycycline hyclate 78167046312 Tyrell Stock MD CEPHALEXIN 500 MG CAPS Take 1 capsule by mouth once a day 0 06/11 cephalexin 34743707475 [facility] CEPHALEXIN 500 MG CAPS Take 1 capsule by mouth once a day TAKE 1 CAPSULE BY MOUTH ONCE DAILY 07/11 cephalexin 08633824382 Tyrell Stock MD DOXYCYCLINE HYCLATE 100 MG CAPS Take 1 capsule by mouth once a day 0 06/11 doxycycline hyclate 46573128941 [facility] DOXYCYCLINE HYCLATE 100 MG CAPS TAKE 1 CAPSULE BY MOUTH ONCE DAILY 0 07/11 doxycycline hyclate 91695334671 Tyrell Stock MD DOXYCYCLINE HYCLATE 100 MG CAPS Take 1 capsule by mouth once a day 0 06/13 doxycycline hyclate 63347268223 Tyrell Stock MD CEPHALEXIN 500 MG CAPS Take 1 capsule by mouth once a day 0 06/13 cephalexin 20086892817 Tyrell Stock MD HYDROCODONE-ACETAM INOPHEN 5-325 MG TABS hydrocodone-aceta minophen 49679071889 Karrie Isabel CEPHALEXIN 500 MG CAPS Take 1 capsule by mouth once a day cephalexin 60172822697 Tyrell Stock MD DOXYCYCLINE HYCLATE 100 MG CAPS Take 1 capsule by mouth once a day 0 06/06 doxycycline hyclate 77463552757 Tyrell Stock MD MAGNESIUM OXIDE -MG SUPPLEMENT 250 MG TABS 2 tablet by mouth twice a day magnesium oxide 44783972976 [facility] PANTOPRAZOLE SODIUM 40 MG TBEC Take 1 tablet by mouth once a day pantoprazole 02805002125 [facility] FLORASTOR 250 MG CAPS Take capsule by mouth twice a day saccharomyces boulardii 68619344871 [facility] ROSUVASTATIN CALCIUM 10 MG TABS Take 1 tablet by mouth once a day rosuvastatin 02257156679 [facility] POTASSIUM CHLORIDE ER 20 MEQ CR-TABS Take tablet by mouth twice a day potassium chloride 20518580039 [facility] FLUTICASONE PROPIONATE 50 MCG/ACT SUSP 2 spray into both nostrils twice a day as needed fluticasone propionate 37432560968 [facility] WARFARIN SODIUM 2 MG TABS Take 1 tablet by mouth once a day warfarin 21427345592 [facility] LISINOPRIL 10 MG TABS Take 1 tablet by mouth once a day lisinopril 38713783960 Umu Carter CO Q 10 100 MG CAPS Take one by mouth daily coenzyme [id number] e 82122490959 [facility] B-12 5000 MCG CAPS Take one by mouth daily cyanocobalamin (vitamin b-12) 27668099219 [facility] DOCUSATE SODIUM 100 MG CAPS Take capsule by mouth twice a day docusate sodium 97811755915 [facility] HYDROCODONE-ACETAM INOPHEN 7.5-325 MG TABS tablet by mouth every four hours as needed hydrocodone-aceta minophen 61161787012 [facility] SENOKOT S 8.6-50 MG TABS 2 tablet by mouth every night sennosides-docusa te sodium 47960182249 [facility] DULOXETINE HCL 60 MG CPEP Take 1 capsule by mouth once a day duloxetine 99523147371 [facility] Carter GABAPENTIN 300 MG CAPS Take 1 capsule by mouth once a day gabapentin 96177882909 [facility] Carter Adult Aspirin Regimen 81 mg tablet,delayed release (DR/EC) Take 1 tablet by mouth once a day aspirin 96661938328 Umu Carter LEVOTHYROXINE SODIUM 100 MCG TABS Take 1 tablet by mouth once a day levothyroxine 57511426069 [facility] Carter LORATADINE 10 MG TABS Take 1 tablet by mouth once a day loratadine 44289387336 [facility]mu Carter DAILY MULTIVITAMIN CAPS Take 1 capsule by mouth once a day [id number] 45112818589 Umu Carter DOXYCYCLINE MONOHYDRATE 100 MG CAPS one cap bid 11/04 DOXYCYCLINE MONOHYDRATE 16316534417 Tyrell Stock MD CEPHALEXIN 500 MG CAPS one capsule bid 9 CEPHALEXIN 16133384706 Tyrell Stock MD DOXYCYCLINE MONOHYDRATE 100 MG CAPS one cap bid 0 08/04 DOXYCYCLINE MONOHYDRATE 27061458642 Tyrell Stock MD DOXYCYCLINE MONOHYDRATE 100 MG CAPS one cap bid 0 05/05 DOXYCYCLINE MONOHYDRATE 14998194205 Tyrell Stock MD CEPHALEXIN 500 MG CAPS two cap every 8 hours 2 CEPHALEXIN 58995332940 Tyrell Stock MD CEPHALEXIN 500 MG CAPS two cap tid 0 CEPHALEXIN 93734645095 Tyrell Stock MD CEPHALEXIN 500 MG CAPS two capsules every 12 hours 0 11/28 CEPHALEXIN 81442890173 Tyrell Stock MD CEFTRIAXONE SODIUM (IV) SOLR Rocephin 2G IV Q24hrs / [place] [phone] 7 CEFTRIAXONE SODIUM SOLR 08328583908 Rayna Perry CEFTRIAXONE SODIUM (IV) SOLR Rocephin 2G IV Q24hrs / [place] [phone] 0 706 CEFTRIAXONE SODIUM SOLR 49580086151 Pina Gillespie EDDIE WARFARIN SODIUM 2 MG TABS Take one by mouth daily 05/30 WARFARIN SODIUM 56106529527 [facility] POTASSIUM CHLORIDE ER 20 MEQ CR-TABS Take by mouth twice a day 2/ POTASSIUM CHLORIDE 57991694534 [facility]mu Carter MAGNESIUM OXIDE 250 MG TABS 2 tabs twice daily 08/29 MAGNESIUM OXIDE 59494975123 [facility] Carter LORATADINE 10 MG TABS Take one by mouth daily 2 LORATADINE 16145373551 Umu Carter LISINOPRIL 10 MG TABS Take one by mouth daily 2 LISINOPRIL 03207572172 [facility] FLUTICASONE PROPIONATE 50 MCG/ACT SUSP 2 [place], Nostrils Both, [place], BID, PRN 08/29 FLUTICASONE PROPIONATE 01924616313 [facility] DOCUSATE SODIUM 100 MG CAPS Take by mouth twice a day 08/29 DOCUSATE SODIUM 08330894005 Umu Carter B-12 5000 MCG CAPS Take one by mouth daily 2/ CYANOCOBALAMIN 92435291192 [facility]mu Carter LEVOTHYROXINE SODIUM 100 MCG TABS Take one by mouth daily 05/30 LEVOTHYROXINE SODIUM 03861768351 Umu Carter SENOKOT S 8.6-50 MG TABS 2 tabs at bedtime 206 SENNOSIDES-DOCUSA TE SODIUM 60263585040 [facility] PANTOPRAZOLE SODIUM 40 MG TBEC Take one by mouth daily 05/30 PANTOPRAZOLE SODIUM 24110583602 [facility] Carter DAILY MULTIVITAMIN CAPS Take one by mouth daily 2/06 MULTIPLE VITAMINS-MINERALS 67506102530 Umu Carter FLORASTOR 250 MG CAPS Take by mouth twice a day 2/ SACCHAROMYCES BOULARDII 76963306518 [facility] Carter DULOXETINE HCL 60 MG CPEP Take one by mouth daily 05/30 DULOXETINE HCL 12908124656 Umu Carter ROSUVASTATIN CALCIUM 10 MG TABS Take one by mouth daily 08/29 ROSUVASTATIN CALCIUM 39706323631 [facility] CO Q 10 CAPS Take one by mouth daily 04/06 COENZYME Q10 CAPS 53856488060 [facility]mu Carter ADULT ASPIRIN REGIMEN 81 MG ORAL TABLET DELAYED RELEASE Take one by mouth daily 05/30 ASPIRIN 19461740443 [facility] Carter GABAPENTIN 300 MG CAPS Take one by mouth daily 08/29 GABAPENTIN 11335397550 Umu Carter HYDROCODONE-ACETAM INOPHEN 7.5-325 MG TABS Q4H/PRN 04/06 HYDROCODONE-ACETA MINOPHEN 86463085011 Umu Carter B-12 100 MCG TABS by mouth daily 07/19 CYANOCOBALAMIN 39125380955 Umu Carter MULTIVITAL ORAL TABLET Daily. 07/19 MULTIPLE VITAMINS-MINERALS 14357572825 Umu Carter ALBUTEROL SULFATE (2.5 MG/3ML) 0.083% NEBU Four times daily as needed. 07/19 ALBUTEROL SULFATE 39671446324 [facility]mu Carter DOCUSATE SODIUM 100 MG CAPS Daily. 07/19 DOCUSATE SODIUM 53030256072 Umu Carter GNP FLUTICASONE PROPIONATE 50 MCG/ACT SUSP 2 sprays to both nostrils as needed. 07/19 FLUTICASONE PROPIONATE 19582405055 Umu Carter SYNTHROID 100 MCG TABS Daily. 07/19 LEVOTHYROXINE SODIUM 58627090587 [facility] MIRALAX 17 GM/SCOOP POWD 17g once daily. 07/19 POLYETHYLENE GLYCOL 3350 29115321733 [facility] CO Q 10 10 MG CAPS Daily. 07/19 COENZYME Q10 54784898803 Umu Carter TURMERIC CURCUMIN CAPS Daily. 07/19 TURMERIC CAPS 74741177458 Umu Carter CALCIUM + D + K TABS 600mg daily. 07/19 CALCIUM-VITAMIN D-VITAMIN K TABS 29289485967 Umu Carter INDAPAMIDE 2.5 MG TABS Daily. 07/19 INDAPAMIDE 77301061685 Umu Carter POTASSIUM CHLORIDE 20 MEQ PACK Twice daily. 07/19 POTASSIUM CHLORIDE 89479367601 Umu Carter SIMVASTATIN 20 MG TABS 1 tab at bedtime. 07/19 SIMVASTATIN 02255178057 Umu Carter TRAMADOL HCL 50 MG TABS Every 6 hours as needed. 07/19 TRAMADOL HCL 37418734969 Umu Carter DICLOFENAC SODIUM 75 MG TBEC Twice daily--pt's request. 07/19 DICLOFENAC SODIUM 62489007317 [facility] Carter PROBIOTIC ACIDOPHILUS ORAL TABLET Daily. 07/19 LACTOBACILLUS 51461694698 Umu Carter KEFLEX 500 MG ORAL CAPSULE by mouth four times a day 07/19 CEPHALEXIN 74705197660 Umu Carter KEFLEX 500 MG ORAL CAPSULE one po qid 06/04 CEPHALEXIN 65255340256 Darby Lynch APRN B-12 100 MCG TABS by mouth daily 08 CYANOCOBALAMIN 15125194481 Christine Gambleelan OXYCODONE HCL 5 MG CAPS 1-2 tabs every 6 hours as needed for pain. 0 3 OXYCODONE HCL 03365913606 Christine Castañeda COUMADIN 2 MG ORAL TABLET Take once daily for six weeks 05/04 WARFARIN SODIUM 15117117621 Christine Castañeda GABAPENTIN 300 MG CAPS At bedtime. 0 3 GABAPENTIN 38370282533 Christine Castañeda CYANOCOBALAMIN 1000 MCG/ML SOLN 5000mcg daily. 05/04 CYANOCOBALAMIN 31127317637 Christine Castañeda MORPHINE SULFATE 15 MG TABS Every 12 hours. 05/04 MORPHINE SULFATE 49744234301 Christine Castañeda CYCLOBENZAPRINE HCL TABLET As needed. 05/04 CYCLOBENZAPRINE HCL TABS 02373081871 Christine Castañeda KEFLEX 500 MG ORAL CAPSULE by mouth four times a day 08/01 CEPHALEXIN 43897948675 Inés Wright DOXYCYCLINE HYCLATE 100 MG CAPS 100mg po twice daily 03/30 DOXYCYCLINE HYCLATE 68159138677 Inés Wright DOXYCYCLINE HYCLATE 100 MG CAPS 100mg po twice daily 06/06 DOXYCYCLINE HYCLATE 44795505440 Carlos Wright MD ROCEPHIN SOLUTION RECONSTITUTED 2g IV daily [facility] [phone] FAX 03/09 CEFTRIAXONE SODIUM SOLR 91557439850 Kiara Medrano RN COUMADIN 2 MG ORAL TABLET Take once daily for six weeks 0 3 WARFARIN SODIUM 85511044647 Nataliia Chayo Baudilio PROBIOTIC ACIDOPHILUS ORAL TABLET Daily. 08/01 LACTOBACILLUS 84609192532 Eileen Aiken ROCEPHIN SOLUTION RECONSTITUTED 2g IV daily [facility] [phone] FAX CEFTRIAXONE SODIUM SOLR 32765151510 Carole Carrasco RN CYCLOBENZAPRINE HCL TABLET As needed. 3/06 CYCLOBENZAPRINE HCL TABS 31248209699 Eileen Aiken DICLOFENAC SODIUM 75 MG TBEC Twice daily--pt's request. 4 DICLOFENAC SODIUM 99333208086 Eileen Aiken TRAMADOL HCL 50 MG TABS Every 6 hours as needed. 6/ TRAMADOL HCL 98576879853 Eileen Aiken SIMVASTATIN 20 MG TABS 1 tab at bedtime. 6 SIMVASTATIN 15570885412 Eileen Aiken MORPHINE SULFATE 15 MG TABS Every 12 hours. 3/06 MORPHINE SULFATE 58544336754 Eileen Aiken POTASSIUM CHLORIDE 20 MEQ PACK Twice daily. 05/30 POTASSIUM CHLORIDE 53524161099 Eileen Aiken INDAPAMIDE 2.5 MG TABS Daily. 6 INDAPAMIDE 94549528608 Eileen Attila CYANOCOBALAMIN 1000 MCG/ML SOLN 5000mcg daily. 9 CYANOCOBALAMIN 43704700046 Eileen Aiken CALCIUM + D + K TABS 600mg daily. 08/01 CALCIUM-VITAMIN D-VITAMIN K TABS 24902033422 Eileen Attila TURMERIC CURCUMIN CAPS Daily. 4 TURMERIC CAPS 53399121575 Eileen Aiken CO Q 10 10 MG CAPS Daily. 6 COENZYME Q10 01066527551 Eileen Attila MIRALAX 17 GM/SCOOP POWD 17g once daily. 2/ POLYETHYLENE GLYCOL 3350 54435051524 Eileen Attila SYNTHROID 100 MCG TABS Daily. 4/ LEVOTHYROXINE SODIUM 15849492357 Eileen Attila GABAPENTIN 300 MG CAPS At bedtime. 7 GABAPENTIN 24490638430 Eileen Attila GNP FLUTICASONE PROPIONATE 50 MCG/ACT SUSP 2 sprays to both nostrils as needed. 6 FLUTICASONE PROPIONATE 59696396015 Eileen Attila DOCUSATE SODIUM 100 MG CAPS Daily. 08/29 DOCUSATE SODIUM 50071590882 Eileen Aiken ALBUTEROL SULFATE (2.5 MG/3ML) 0.083% NEBU Four times daily as needed. 05/30 ALBUTEROL SULFATE 14067320001 Eileen Aiken COUMADIN 1 MG ORAL TABLET Once daily for 6 weeks. WARFARIN SODIUM 08469900886 Eileen Aiken OXYCODONE HCL 5 MG CAPS 1-2 tabs every 6 hours as needed for pain. 03/12 OXYCODONE HCL 51272437939 Eileen Aiken MULTIVITAL ORAL TABLET Daily. 08/01 MULTIPLE VITAMINS-MINERALS 11116724000 Eileen Aiken ROCEPHIN SOLUTION RECONSTITUTED 2g IV daily HH [facility] CEFTRIAXONE SODIUM SOLR 11686881171 Chevy Warren Medications Administered No information available. 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 Plan of Care Type Date Detail Appointment 11:30 AM Tyrell Stock MD, [address] [place] [address], [facility] [address], [address], Pending order Continue oral an tibiotics Pending [...] (G2211) CPT-[facility]oor[facility] Continue oral antibiotics 20 22/12/15 CPT-57575 CMP [id number] CBC with Differential 2022 CPT-84170 C- reactive protein CPT-73055 Sedimentation Rate (ESR) 202 05/09/15 CPT-[facility]ooral Continue oral antibiotics 20 21/06/16 CPT-11323 CMP [id number] CBC with Differential 2022 CPT-09299 C- reactive protein CPT-57152 Sedimentation Rate (ESR) 202 05/02/16 CPT-[facility]ooral Continue oral antibiotics 20 20/12/16 CPT-14003 CMP [id number] CBC with Differential 2021 CPT-03537 C- reactive protein CPT-25006 Sedimentation Rate (ESR) 202 04/10/16 CPT-[facility]ooral Continue oral antibiotics 20 20/06/10 CPT-[facility]oor[facility] Continue oral antibiotics 20 18/02/06 CPT-[facility]ooral Continue oral antibiotics 20 19/11/06 CPT-83048 CMP [id number] CBC with Differential 2020 CPT-20310 C- reactive protein CPT-45355 Sedimentation Rate (ESR) 202 03/09/06 CPT-Cooral Continue oral antibiotics 20 20/08/07 CPT-[facility] Continue oral antibiotics 20 20/05/07 CPT-16705 CMP [id number] CBC with Differential 202008 CPT-46035 C- reactive protein CPT-86623 Sedimentation Rate (ESR) 202 03/03/07 CPT-labs Labs CPT-Cooral Continue oral antibiotics 20 17/02/07 CPT-Cooral Continue oral antibiotics 20 19/12/11 CPT-03459 CMP [id number] CBC with Differential 2019 CPT-17073 C- reactive protein CPT-55820 Sedimentation Rate (ESR) 202 CPT-Cooral Continue oral antibiotics 20 18/11/08 CPT-57784 CMP [id number] CBC with Differential 2019 CPT-77937 C- reactive protein CPT-25314 Sedimentation Rate (ESR) 202 CPT-Cooral Continue oral antibiotics 20 18/09/19 CPT-ca Continue IV antibiotics 2019 CPT-oral Discontinue oral antibiotics CPT-ca Continue IV antibiotics 2019 CPT-sl STAT Labs [id number] CBC with Differential 2017 CPT-27968 CMP CPT-77970 Sedimentation Rate (ESR) 201 10/03/08 CPT-84604 C- reactive protein CPT-Cooral Continue oral antibiotics 20 16/05/05 CPT-sl STAT Labs CPT-Cooral Continue oral antibiotics 20 18/03/01 CPT-97375 Unna Boot CPT-PICREM PICC Removal CPT-DC Discontinue [...]
--- OUTSIDE RECORDS SUMMARY | 2024-12-21 10:10 | XMS_ITS | Clinical Summary ---
Author Organization [employer] ([place], [place], [place], [place]) Address [address] [place] [address] Care Team Providers Care [employer] Registrar Name Role Phone Unavailable Primary Care [...]
--- OUTSIDE RECORDS SUMMARY | 2024-12-21 10:10 | XMS_ITS | Encounter Summary ---
Author Organization [employer] ([place], [place], [place], [place]) Address [address] [place] [address] Care Team Providers Care Funeral Home Manager Name Role Phone Unavailable Primary Care Provider Unavailabl e Encounter Details Date Type Department Care Team (Late st Contact Info) Description 07/18/2019 Transcribed Document [facility] [place] [place] Family [place] [facility] [place] [address] ProviderMariela MD [address] [place] [id number] Social History Tobacco Use Types Packs/Day [...] form. Electronically signed by Maureen Cornejo Conversion Command And Control Specialist Cerner at 06/16/2022 8:26 PM CDT documented in this encounter Plan of Treatment Not on file documented as of this encounter Visit Diagnoses Not on filedocumented in this encounter
--- OUTSIDE RECORDS SUMMARY | 2024-12-21 10:10 | XMS_ITS | Encounter Summary ---
Author Organization [employer] ([place], [place], [place], [place]) Address [address] [place] [address] Care Team Providers Care Recruitment Assistant Name Role Phone Unavailable Primary Care Provider Unavailabl e Encounter Details Date Type Department Care Team (Late st Contact Info) Description 07/08/2019 Transcribed Document [facility] [place] Family Medicine [facility] [place] [address] ProviderMariela MD [address] [place] [address] [id number] Social History Tobacco Use Types Packs/Day Years [...] 0.9% 50 mL 2 Gram, IV Piggyback, [id number] cyanocobalamin 1,000 mcg tab 5,000 mcg 5 [...] Oral, Q4H fluticasone 0.05% nasal spray 2 [place], Nostrils Both, BID magnesium hydroxide 8% liq [...] % 25.0 % Lymph # 1.57 x10(3)/uL [place] % 12.1 % [place] # 0.76 K/uL Eos % 4.8 % [...]
--- OUTSIDE RECORDS SUMMARY | 2024-12-21 10:10 | XMS_ITS | Encounter Summary ---
Author Organization [employer] ([place], [place], [place], [place]) Address [address] [place] [address] Care Team Providers Care Early Childhood Worker Name Role Phone Unavailable Primary Care Provider Unavailabl e Encounter Details Date Type Department Care Team (Late st Contact Info) Description 08/22/2020 Transcribed Document [facility] [place] Family Medicine [facility] [place] [address] ProviderMariela MD [facility] [place] [address] Social History Tobacco Use [...] EDT Chloraseptic Menthol 1.4% topical spray: 5 [place], Oral, [place], Q2H, PRN for Sore Throat, Routine, Start [...] EDT fluticasone 50 mcg/inh nasal spray: 2 [place], Nostrils Both, [place], BID, PRN for Allergies, Routine, Start 08/20/20 [...] Refill(s) fluticasone 50 mcg/inh nasal spray: 2 [place], Nostrils Both, [place], BID, PRN Allergies, 0 Refill(s) furosemide 40 [...] Oral, Daily fluticasone 0.05% nasal spray 2 [place], Nostrils Both, BID magnesium hydroxide 8% liq [...] Oral, Q4H phenol 1.4% throat spray 5 [place], Oral, Q2H promethazine 25 mg tab 12.5 [...] precautions. long-term facility in a.m. if stable. documented in this encounter Plan of Treatment Not on file documented as of this encounter Visit Diagnoses Not on filedocumented in this encounter
--- OUTSIDE RECORDS SUMMARY | 2024-12-21 10:10 | XMS_ITS | Encounter Summary ---
Author Organization [employer] ([place], [place], [place], [place]) Address [address] [place] [address] Care Team Providers Care Claims Investigator Name Role Phone Unavailable Primary Care Provider Unavailabl e Encounter Details Date Type Department Care Team (Late st Contact Info) Description 07/19/2019 Transcribed Document [facility] Family Medicine [facility] [place] [address] ProviderMariela MD [address] [place], [place] [...] EDT Electronically signed by Maureen Cornejo Conversion Piped Pocket Machine Operator Cerner at 06/16/2022 8:03 PM CDT documented in this encounter Plan of Treatment Not on file documented as of this encounter Visit Diagnoses Not on filedocumented in this encounter
--- OUTSIDE RECORDS SUMMARY | 2024-12-21 10:10 | XMS_ITS | Encounter Summary ---
Author Organization [employer] ([place], [place], [place], [place]) Address [address] [place] [address] Care Team Providers Care Administrative Intern Name Role Phone Unavailable Primary Care Provider Unavailabl e Encounter Details Date Type Department Care Team (Late st Contact Info) Description 07/19/2019 Transcribed Document [facility] [place] [facility] [address] ProviderMariela MD [address] [place] [address] [phone] Social History Tobacco Use Types Packs/Day Years [...] Note : 07/19/2019 Discharge summary faxed to [facility] Medicare. Auth#[id number]. Care Management Note Report : СВЕТЛАНА WANG - 07/19/19 09:16:16 07/19/2019 Patient went to appointment with Dr. Saenz yesterday, came back with a follow-up appointment scheduled for 08/17/2019 @ 9430. СВЕТЛАНА WANG - 07/17/19 13:41:45 07/17/2019 Call received from Tati Erickson [facility], with approval for LTAC services. Last covered date 07/18/2019 with anticipated DC on 07/19/2019. Please fax DC summary on date of discharge. Auth#[id number]. СВЕТЛАНА WANG - 07/17/19 11:32:16 07/17/[address] Snyder (ID), he is in agreement to discharge to SNF on Wednesday, he would like for her to follow-up with the consulting ID (Dr. Stock) in 1 week upon discharge. TELEHEALTH appointment scheduled with Dr. Stock for 07/25/2019 @ 1600. [facility] will call Lexy to facilitate this visit. СВЕТЛАНА WANG - 07/17/19 10:32:31 07/17/2019 faxed clinical review the [facility] at [phone] to request approval for extended ltac services. Auth#[id number], awaiting approval. CM/Discharge plan attached to review. PEDRITO WANGLESPeterson - 07/17/19 09:06:05 07/17/[address] Jaffe's progress note, yahaira may be removed if okay with Dr. Saenz's office. Per our WOCN, Dr. Saenz's office said they need to see her before they make that decision. Appt scheduled for tomorrow, 07/18/2019 @ 1415; [facility] round-trip transport scheduled for 1315 pick-up ([id number]). Spoke with Lexy Valdez, they have not yet began the patient's insurance preauth, they will today, and be ready to admit on Wednesday. Dr. Jaffe notified and in agreement. [facility] rescheduled for discharge 07/19/2019 @ 1400 ([id number]). YOANNA ARAUJO RN - 07/14/19 15:41:31 Yoanna Araujo 07/13/2019 1500 - patient has accepted bed offer at [facility], she will be transported on WednesdayJuly 16 at 2pm by [facility] Confirmation # [id number]. She declined the bed offer at [facility] Dr. Jaffe notified of discharge plan. YOANNA ARAUJO RN - 07/13/19 14:37:44 Yoanna Araujo 07/13/2019 1400 received call from Ratna with [facility] offering patient a bed, Received call from Isabelle with [facility] she is looking at patient and needed a current height and weight. Still waiting to see if any other bed offers come through. I also sent referral to [facility]. YOANNA ARAUOJ RN - 07/13/19 11:04:03 Yoanna Araujo 07/13/2019 1100 faxed out referral for placement for patient to [facility] rehab, [facility] Awaiting call backs. СВЕТЛАНА WANG - 07/12/19 12:19:17 07/12/2019 Fax received from [facility] with approval for LTAC services with a request for updated discharge plans and clinical info to support needs if not discharged. Auth#[id number]. Clinical review or discharge summary to be faxed by 07/17/2019. YOANNA ARAUJO RN - 07/12/19 08:39:48 Yoanna Araujo 07/12/2019 0830 - faxed clinical review the [facility] at [phone] to request approval for extended ltac services. Auth#[id number], awaiting approval. YOANNA ARAUJO RN - 06/29/19 [...] health and she has been to the [facility] in the past. She has the following equipment at home: wheel chair, walker, cane and shower chair. Her discharge plan is to go to rehab prior to returning home. PCP: Flavia MARQUEZ [facility] [phone] Dehairing Machine Tender: Dr. Shemar Barger [phone] Clemente Del Rio MD - Rheumatology - [address] [place] [address] Preferences: Home Health: [facility]: no preferences DME: [facility] - [address], [place] [address] Alf: Trevor at [facility] facility: no preferences Will continue to monitor patient for anticipated discharge needs YOANNA ARAUJO, RN - 06/29/19 08:30:20 Yoanna Araujo 06/29/2019 0830 received fax from [facility] with approval for extended ltac coverage with next clinical review due on 07/12/2019. Auth#[id number]. Will continue to follow for anticipated discharge needs. YOANNA ARAUJO RN - 06/28/19 08:35:06 Yoanna Araujo 06/28/2019 0830 Faxed clinical review to [facility] at to request approval for extended Ltac services. Auth#[id number]. Pending Approval. Documentation Status Complete : Yes СВЕТЛАНА WANG - 07/19/2019 14:40 EDT documented in this encounter Plan of Treatment Not on file documented as of this encounter Visit Diagnoses Not on filedocumented in this encounter
--- OUTSIDE RECORDS SUMMARY | 2024-12-21 10:10 | XMS_ITS | Encounter Summary ---
Author Organization [employer] ([place], [place], [place], [place]) Address [address] [place] [address] Care Team Providers Care Forestry Fire Aide Name Role Phone Unavailable Primary Care Provider Unavailabl e Encounter Details Date Type Department Care Team (Late st Contact Info) Description 07/08/2019 Transcribed Document [facility] [place] Medicine [facility] [address] ProviderMariela MD [address] [place] [address] Social History Tobacco Use Types Packs/Day Years [...] Historical ProviderMD - 07/08/2019 2:00 AM CDT B2B Sales Manager Details Entered On: 07/08/2019 3:22 EDT Performed [...] 07/08/2019 3:22 EDT Electronically signed by Chantal [facility] Conversion Client Services Account Manager Cerner at 06/16/2022 8:06 PM CDT documented in this encounter Plan of Treatment Not on file documented as of this encounter Visit Diagnoses Not on filedocumented in this encounter
--- OUTSIDE RECORDS SUMMARY | 2024-12-21 10:10 | XMS_ITS | Encounter Summary ---
Author Organization [employer] ([place], [place], [place], [place]) Address [address] [place] [address] Care Team Providers Care Bacteriology Teacher Name Role Phone Unavailable Primary Care Provider Unavailabl e Encounter Details Date Type Department Care Team (Late st Contact Info) Description 07/18/2019 Transcribed Document [facility] [place] [address] [place] [address] ProviderMariela MD [address] [place], [place] [phone] Social History Tobacco Use Types Packs/Day Years [...] Historical ProviderMD - 07/18/2019 2:00 AM CDT Post Splitter Details Entered On: 07/18/2019 2:50 EDT Performed [...] 07/18/2019 2:49 EDT Electronically signed by Chantal [place] Conversion Block Out Machine Operator Cerner at 06/16/2022 8:16 PM CDT documented in this encounter Plan of Treatment Not on file documented as of this encounter Visit Diagnoses Not on filedocumented in this encounter
--- OUTSIDE RECORDS SUMMARY | 2024-12-21 10:10 | XMS_ITS | Encounter Summary ---
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
--- OUTSIDE RECORDS SUMMARY | 2024-12-21 10:10 | XMS_ITS | Encounter Summary ---
Author Organization [employer] ([place], [place], [place], [place]) Address [address] [place] [address] Care Team Providers Care Second Cook And Baker Name Role Phone Unavailable Primary Care Provider Unavailabl e Encounter Details Date Type Department Care Team (Late st Contact Info) Description 07/19/2019 Transcribed Document [facility] [place] [facility] [place] [address] ProviderMarilea MD [address] [place] [phone] Social History Tobacco Use Types Packs/Day Years [...] Tyrell Stock M.D. Admitting and discharging physician, [facility] medicine, Dr. Owens, Donna Jaffe M.D. 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 [...] Dr. Saenz. Patient was then transferred to [facility] to continue her care. During her hospitalization [...] to another lower level of care to longterm facility. Basic Information Review of Systems Constitutional: [...] 0.9% 100 mL 2 Gram, IV Piggyback, [id number] cyanocobalamin 1,000 mcg tab 5,000 mcg 5 [...] Oral, Q4H fluticasone 0.05% nasal spray 2 [place], Nostrils Both, BID magnesium hydroxide 8% liq [...] CLINICALLY STABLE AFEBRILE OK TO D/C TO SNF FACILITY. Consultants agree with for her discharge. Patient is stable for discharge.. Orders Order Profile (Selected) Prescriptions Prescribed [place] 7.5 mg-325 mg oral tablet: 1 Tab, [...] Refill(s) fluticasone 50 mcg/inh nasal spray: 2 [place], Nostrils Both, [place], BID, PRN Allergies, 0 Refill(s) lisinopril 10 [...]
--- OUTSIDE RECORDS SUMMARY | 2024-12-21 10:10 | XMS_ITS | Encounter Summary ---
Author Organization [employer] ([place], [place], [place], [place]) Address [address] [place] [address] Care Team Providers Care Airplane Rigger Name Role Phone Unavailable Primary Care Provider Unavailabl e Encounter Details Date Type Department Care Team (Late st Contact Info) Description 08/22/2020 Transcribed Document [facility] [place] Medicine [address] [place] [address] ProviderMariela MD [address] [place] [address] Social History Tobacco Use Types [...]
--- OUTSIDE RECORDS SUMMARY | 2024-12-21 10:10 | XMS_ITS | Encounter Summary ---
Author Organization [employer] ([place], [place], [place], [place]) Address [address] [place] [address] Care Team Providers Care Provider Contracting Consultant Name Role Phone Unavailable Primary Care Provider Unavailabl e Encounter Details Date Type Department Care Team (Late st Contact Info) Description 07/07/2019 Transcribed Document [facility] Radiology [address] [place] [address] Jordan Barahona MD [address] [phone] Social History Tobacco Use Types Packs/Day Years [...] (JULY 03) L 1.9 (JULY 02) Micro: [facility]: 06/15 [facility] Blood cultures positive for [...]
--- OUTSIDE RECORDS SUMMARY | 2024-12-21 10:10 | XMS_ITS | Encounter Summary ---
Author Organization [employer] ([place], [place], [place], [place]) Address [address] [place] [address] Care Team Providers Care Sql Report Writer Name Role Phone Unavailable Primary Care Provider Unavailabl e Encounter Details Date Type Department Care Team (Late st Contact Info) Description 08/29/2018 Transcribed Document [facility] [place] [facility] [place] [address] ProviderMariela MD [facility] [place] [address] Social History Tobacco Use Types [...] time of discharge from hospital to the [place], pt had met 0/2 acute care goals as she was discharged to rehab the same day as the PT evaluation. Pt was independent with bed mobility and transfers. CHAITANYA SIMON, PT - 09/03/2018 9:58 EDT Nursing Home Goals Other PT LTG [...]
--- OUTSIDE RECORDS SUMMARY | 2024-12-21 10:11 | XMS_ITS | Encounter Summary ---
Author Organization [employer] ([place], [place], [place], [place]) Address [address] [place] [address] Care Team Providers Care Supervisor Cigarette Making Department Name Role Phone Unavailable Primary Care Provider Unavailabl e Encounter Details Date Type Department Care Team (Late st Contact Info) Description 06/16/2019 Transcribed Document [facility] [place] Family Medicine [address] [place] [address] ProviderMariela MD [address] [place] [address] Social History Tobacco Use Types Packs/Day Years [...] consult KARY AQUINO - 06/17/2019 8:27 EDT Electronically signed by Maureen Cornejo Conversion Automatic Equipment Technician Cerbryce at 06/16/2022 8:09 PM CDT documented in this encounter Plan of Treatment Not on file documented as of this encounter Visit Diagnoses Not on filedocumented in this encounter
--- OUTSIDE RECORDS SUMMARY | 2024-12-21 10:11 | XMS_ITS | Encounter Summary ---
Author Organization [employer] ([place], [place], [place], [place]) Address [address] [place] [address] Care Team Providers Care Vine Fruit Farming Supervisor Name Role Phone Unavailable Primary Care Provider Unavailabl e Encounter Details Date Type Department Care Team (Late st Contact Info) Description 07/12/2019 Transcribed Document [facility] [facility] [place] [address] ProviderMariela MD [address] [place] [phone] Social History Tobacco Use Types Packs/Day Years [...] Historical ProviderMD - 07/12/2019 2:00 AM CDT Wildfire Prevention Specialist Details Entered On: 07/12/2019 4:38 EDT Performed [...] 07/12/2019 4:37 EDT Electronically signed by Chantal [facility] Conversion Acid Crane Operator Cerner at 06/16/2022 8:29 PM CDT documented in this encounter Plan of Treatment Not on file documented as of this encounter Visit Diagnoses Not on filedocumented in this encounter
--- OUTSIDE RECORDS SUMMARY | 2024-12-21 10:11 | XMS_ITS | Encounter Summary ---
Author Organization [employer] ([place], [place], [place], [place]) Address [address] [place] [address] Care Team Providers Care Maternal Fetal Physician Name Role Phone Unavailable Primary Care Provider Unavailabl e Encounter Details Date Type Department Care Team (Late st Contact Info) Description 07/13/2019 Transcribed Document [facility] [place] [facility] [place] [address] ProviderMariela MD [address] [place] [address] Social History Tobacco Use Types Packs/Day Years [...]
--- OUTSIDE RECORDS SUMMARY | 2024-12-21 10:11 | XMS_ITS | Encounter Summary ---
Author Organization [employer] ([place], [place], [place], [place]) Address [address] [place] [address] Care Team Providers Care Outreach Team Member Name Role Phone Unavailable Primary Care Provider Unavailabl e Encounter Details Date Type Department Care Team (Late st Contact Info) Description 06/23/2019 Transcribed Document [facility] [place] [address] ProviderMariela MD [address] [place] [address] Social History Tobacco Use Types Packs/Day [...] CHAY MOSER MARYPiedadBartolo - 06/24/2019 12:31 EDT Disaster Response Director Goals, OT Other LTG Grid Goal #1 [...] EDT Electronically signed by Maureen Cornejo Conversion Lamination Machine Operator Cerner at 06/16/2022 8:30 PM CDT documented in this encounter Plan of Treatment Not on file documented as of this encounter Visit Diagnoses Not on filedocumented in this encounter
--- OUTSIDE RECORDS SUMMARY | 2024-12-21 10:11 | XMS_ITS | Encounter Summary ---
Author Organization [employer] ([place], [place], [place], [place]) Address [address] [place] [address] Care Team Providers Care Police Radio Dispatcher Name Role Phone Unavailable Primary Care Provider Unavailabl e Encounter Details Date Type Department Care Team (Late st Contact Info) Description 07/13/2019 Transcribed Document [facility] [place] Medicine [facility] [place] [address] ProviderMariela MD [address] [place] [phone] Social History Tobacco Use Types Packs/Day Years [...] 0.9% 50 mL 2 Gram, IV Piggyback, [id number] cyanocobalamin 1,000 mcg tab 5,000 mcg 5 [...] Oral, Q4H fluticasone 0.05% nasal spray 2 [place], Nostrils Both, BID magnesium hydroxide 8% liq [...]
--- OUTSIDE RECORDS SUMMARY | 2024-12-21 10:11 | XMS_ITS | Encounter Summary ---
Author Organization [employer] ([place], [place], [place], [place]) Address [address] [place] [address] Care Team Providers Care Programmer Analyst Consultant Name Role Phone Unavailable Primary Care Provider Unavailabl e Encounter Details Date Type Department Care Team (Late st Contact Info) Description 06/28/2019 Transcribed Document [facility] [place] [facility] [place] [address] ProviderMariela MD [address] [place] [address] Social History Tobacco Use Types Packs/Day [...] doses. Rx to follow, Chrissy Henderson, PharmD [phone] documented in this encounter Plan of Treatment Not on file documented as of this encounter Visit Diagnoses Not on filedocumented in this encounter
--- OUTSIDE RECORDS SUMMARY | 2024-12-21 10:11 | XMS_ITS | Encounter Summary ---
Author Organization [employer] ([place], [place], [place], [place]) Address [address] [place] [address] Care Team Providers Care Bean Sprout Grower Name Role Phone Unavailable Primary Care Provider Unavailabl e Encounter Details Date Type Department Care Team (Late st Contact Info) Description 06/16/2019 Transcribed Document [facility] [facility] [place] [address] ProviderMariela MD [address] [place] [address] Social History Tobacco Use Types Packs/Day [...]
--- OUTSIDE RECORDS SUMMARY | 2024-12-21 10:11 | XMS_ITS | Encounter Summary ---
Author Organization [employer] ([place], [place], [place], [place]) Address [address] [place] [address] Care Team Providers Care Business Systems Analyst Name Role Phone Unavailable Primary Care Provider Unavailabl e Encounter Details Date Type Department Care Team (Late st Contact Info) Description 06/28/2019 Transcribed Document [facility] [place] [facility] [place] [address] ProviderMariela MD [facility] [place] [address] Social History Tobacco Use Types [...]
--- OUTSIDE RECORDS SUMMARY | 2024-12-21 10:11 | XMS_ITS | Encounter Summary ---
Author Organization [employer] ([place], [place], [place], [place]) Address [address] [place] [address] Care Team Providers Care Electrical Continuity Tester Name Role Phone Unavailable Primary Care Provider Unavailabl e Encounter Details Date Type Department Care Team (Late st Contact Info) Description 06/23/2019 Transcribed Document [facility] [place] [place] [facility] [place] [address] ProviderMariela MD [address] [place] [address] Social History Tobacco Use Types Packs/Day [...] 0.9% 50 mL 2 Gram, IV Piggyback, [id number] cyanocobalamin 1,000 mcg tab 5,000 mcg 5 Tab, Oral, Daily docusate sodium 100 mg cap 100 mg 1 Cap, Oral, BID DULoxetine DR 60 mg cap 60 mg 1 Cap, Oral, Daily enoxaparin 40 mg/0.4 mL inj 40 mg 0.4 mL, SubCutaneous, [id number] gabapentin 300 mg cap 300 mg 1 [...] At Bedtime fluticasone 0.05% nasal spray 2 [place], Nostrils Both, BID LORazepam 2 mg/mL inj [...] Topical, Q1H phenol 1.4% throat spray 1 [place], Oral, Q2H potassium chloride 10 mEq 100 [...] % LOW ALYC # 3 K/uL NA [place] Percent Man 6 % HI Myelo Percent [...] % LOW ALYC # 1 K/uL NA [place] Percent Man 6 % HI [place] Percent Man 3 % HI Myelo Percent [...]
--- OUTSIDE RECORDS SUMMARY | 2024-12-21 10:11 | XMS_ITS | Encounter Summary ---
Author Organization [employer] ([place], [place], [place], [place]) Address [address] [place] [address] Care Team Providers Care Centrifugal Spinner Name Role Phone Unavailable Primary Care Provider Unavailabl e Encounter Details Date Type Department Care Team (Late st Contact Info) Description 08/29/2018 Transcribed Document [facility] [place] Family Medicine [facility] [place] [address] ProviderMariela MD [facility] [place] [address] Social History Tobacco [...] Mariela ProviderMD - 08/29/2018 5:25 PM CDT [place] [id number] SOFIA GILL :1940 Visit Time:08/22/2018 Your Visit [...] FATOUMATA AT CIT[facility] TODAY, CALL REPORT TO [phone] FAX D/C SUMMARY TO [phone] Follow-Up Appointments Follow Up with SOLOMON MCCRACKEN PA-C When 09/08/2018 09:00 AM EDT Comments Appointment has been made Where: Follow Up with [facility] When Where: [address] [place] [address]- Medications What How Much When Instructions Next [...] (fluticasone 50 mcg/ inh nasal spray) 2 Marengo(s) Nostrils Both Two Times A Day as [...] Barley. Bulgur wheat. Millet. Bran muffins. Popcorn. [place] wafer crackers. ??? Vegetables Sweet potatoes. Spinach. Kale. Artichokes. Cabbage. Broccoli. Green peas. Carrots. Squash. ??? Fruits Berries. Pears. Apples. Oranges. Avocados. Prunes and raisins. Dried figs. ??? Meats and Other Protein Sources Kite, kidney, call, and soy beans. Split peas. [...] gray has 11 g of protein. ??? [place] seeds ??? 1 oz has 5.5 g [...] floor. ??? Place frequently used items in tsqf-qz-dbkix places ??? Keep electrical cables out of [...] ? Using the bathroom. ? Using household tooling specialist or toxic chemicals. ? Touching or taking [...] What is aspirin? Aspirin is a salicylate (xm-ZRF-bl-ate). It works by reducing substances in the [...] may report side effects to FDA at 9-421-RQZ-0242. What other drugs will affect aspirin? Ask [...] drugs may affect aspirin, including prescription and mluu-xkw-lmhlsvp medicines, vitamins, and herbal products. Not all [...] to ensure that the information provided by [employer]. ('[employer]') is accurate, up-to-date, and complete, but no guarantee is made to that effect. Drug information contained herein may be time sensitive. [employer] information has been compiled for use by healthcare practitioners and consumers in the [place] and therefore [employer] does not warrant that uses outside of the [place] are appropriate, unless specifically indicated otherwise. [employer] drug information does not endorse drugs, diagnose patients or recommend therapy. [employer] drug information is an informational resource designed [...] effective or appropriate for any given patient. [employer] does not assume any responsibility for any aspect of healthcare administered with the aid of information [employer] provides. The information contained herein is not intended to cover all possible uses, directions, precautions, warnings, drug interactions, allergic reactions, or adverse effects. If you have questions about the drugs you are taking, check with your doctor, nurse or pharmacist. Copyright 3273-3669 [employer]. Version: 15.02. Revision Date: 05/31/2017.gabapentin (GA ba [...] are a day sleeper or work a mine shifter. Some people have thoughts about suicide while [...] may report side effects to FDA at 6-480-DAF-3654. What other drugs will affect gabapentin? Taking gabapentin with other drugs that make you sleepy can worsen this effect. Ask your doctor before taking a sleeping pill, narcotic medication, muscle relaxer, or medicine for anxiety, depression, or seizures. Other drugs may interact with gabapentin, including prescription and mbbp-jcb-cjcoxqg medicines, vitamins, and herbal products. Tell your [...] to ensure that the information provided by [employer]') is accurate, up-to-date, and complete, but no guarantee is made to that effect. Drug information contained herein may be time sensitive. [employer] information has been compiled for use by healthcare practitioners and consumers in the [place] and therefore [employer] does not warrant that uses outside of the [place] are appropriate, unless specifically indicated otherwise. [employer]'s drug information does not endorse drugs, diagnose patients or recommend therapy. [facility] drug information is an informational resource designed [...] effective or appropriate for any given patient. [facility] does not assume any responsibility for any aspect of healthcare administered with the aid of information [facility] provides. The information contained herein is not intended to cover all possible uses, directions, precautions, warnings, drug interactions, allergic reactions, or adverse effects. If you have questions about the drugs you are taking, check with your doctor, nurse or pharmacist. Copyright 6655-6653 [employer]. Version: 14.. Revision Date: 12/08/2016.hydromorphone (oral) (JATINDER [...] extended-release form of this medicine is for lcubrw-ivz-zooxu treatment of moderate to severe pain, not [...] against the law. Stop taking all other esxmfq-txr-roawg narcotic pain medications when you start taking [...] may report side effects to FDA at 2-386-OGG-3126. What other drugs will affect hydromorphone? Opioid [...] drugs may affect hydromorphone, including prescription and kusc-ryk-xhekcld medicines, vitamins, and herbal products. Not all [...] to ensure that the information provided by [employer] ('[employer]') is accurate, up-to-date, and complete, but no guarantee is made to that effect. Drug information contained herein may be time sensitive. [employer] information has been compiled for use by healthcare practitioners and consumers in the [place] and therefore [employer] does not warrant that uses outside of the [place] are appropriate, unless specifically indicated otherwise. [employer]'s drug information does not endorse drugs, diagnose patients or recommend therapy. [employer] drug information is an informational resource designed [...] effective or appropriate for any given patient. [facility] does not assume any responsibility for any aspect of healthcare administered with the aid of information [facility] provides. The information contained herein is not intended to cover all possible uses, directions, precautions, warnings, drug interactions, allergic reactions, or adverse effects. If you have questions about the drugs you are taking, check with your doctor, nurse or pharmacist. Copyright 7186-3903 [facility]. Version: 9.02. Revision Date: 01/26/2018.docusate (oral/rectal) (DOK [...] may report side effects to FDA at 7-985-MRV-4009. What other drugs will affect docusate? Other drugs may interact with docusate, including prescription and nmqw-vmg-ihahbjv medicines, vitamins, and herbal products. Tell each [...] to ensure that the information provided by [employer] ('[employer]') is accurate, up-to-date, and complete, but no guarantee is made to that effect. Drug information contained herein may be time sensitive. [employer] information has been compiled for use by healthcare practitioners and consumers in the [place] and therefore [employer] does not warrant that uses outside of the [place] are appropriate, unless specifically indicated otherwise. [employer] drug information does not endorse drugs, diagnose patients or recommend therapy. [employer] drug information is an informational resource designed [...] effective or appropriate for any given patient. [employer] does not assume any responsibility for any aspect of healthcare administered with the aid of information [employer] provides. The information contained herein is not intended to cover all possible uses, directions, precautions, warnings, drug interactions, allergic reactions, or adverse effects. If you have questions about the drugs you are taking, check with your doctor, nurse or pharmacist. Copyright 5959-3973 [employer]. Version: 3.03. Revision Date: 04/12/2013.acetaminophen (oral) (a SEET a MIN oh fen) Actamin, Anacin AF, Apra, Bromo [place], Children's Tylenol, Elixsure Fever/Pain, Mapap, Medi-Tabs, Q-Pap, [...] is a pain reliever and a fever upper cutter. Acetaminophen is used to treat many conditions [...] may report side effects to FDA at 7-533-OQM-9021. What other drugs will affect acetaminophen? Other drugs may interact with acetaminophen, including prescription and hzdt-zbe-ggepvri medicines, vitamins, and herbal products. Tell your [...]
--- OUTSIDE RECORDS SUMMARY | 2024-12-21 10:11 | XMS_ITS | Encounter Summary ---
Author Organization [employer] ([place], [place], [place], [place]) Address [address] [place] [address] Care Team Providers Care Military Source Operations Specialist Name Role Phone Unavailable Primary Care Provider Unavailabl e Encounter Details Date Type Department Care Team (Late st Contact Info) Description 06/24/[address] [facility] [facility] [place] [address] ProviderMariela MD [address] [place] [address] Social History Tobacco Use Types Packs/Day [...] On: 06/24/2019 13:47 EDT by Halima Tripathi RN-CHESTNUT TANNERstudent assistance counselor Progress Note Discharge Arrangements : Patient Post-Acute [...] Attend Multidisciplinary Rounds? : No Halima Tripathi RN-CHESTNUT TANNER - 06/24/2019 13:47 EDT Narrative Progress Note Narrative Progress Note : Per ID note of 06/22: continue ceftriaxone 2 gm daily and plan on 8 weeks of therapy with PICC line in lifelong oral suppression. Otherwise, patient has been accepted by [facility] and we are awaiting bed availability, likely next week. CM will continue to follow. Historical Progress Note : RECEIVED CALL FROM [facility] WITH [facility]..PATIENT HAS BEEN ACCEPTED AND THEY WILL HAVE A BED SOMETIME NEXT WEEK..CM WILL CONTINUE TO FOLLOW AND INFORM DR DRIVER OF THE ABOVE..DEBORAH BENAVIDEZ RN-Care Analyst - 06/23/19 11:45:46 RECEIVED CALL FROM [place] WITH [facility]..PATIENT HAS BEEN ACCEPTED AND THEY WILL HAVE A BED SOMETIME NEXT WEEK..CM WILL CONTINUE TO FOLLOW AND INFORM DR DRIVER OF THE ABOVE..STEPHANIE SPOKE WITH PT AT [facility] AND SHE IS AWARE THAT L-T[facility] HAS STARTED A PRECERT AND HOPEFULLY WILL HAVE BED AVAILABLE ON WEDNESDAY PENDING AUTHORIZATION..DR DRIVER AWARE..DEBORAH BENAVIDEZ RN-Care Analyst - 06/23/19 17:11:55 Sent referral to [facility] through [facility]..........MIKE Adam RN-Care Analyst - 06/21/19 16:57:54 Was planning for AKA, now patient will undergo a total joint revision with I&D. Will continue to follow.............MIKE Adam RN-Care Analyst - 06/21/19 16:36:10 PICC line placed, Per LID, plan for care home IV abx. Surgery scheduled for today................MIKE Adam RN-Care Analyst - 06/21/19 10:06:05 No MDR this AM with provider. Patient with low-grade fever this AM and throughout the night. COTY was rescheduled for 06/20 for this reason. CM will continue to follow. Halima Tripathi, EDDIE-CHESTNUT TANNER - 06/20/19 11:50:51 Patient becoming more agitated and confused, refusing to wear oxygen. Patient now on CPAP, WBC increased, BC x2 positive for group b Strep. Dr Saenz to perform AKA tomorrow morning. Will continue to follow..............sds MIKE FRIEDMAN, EDDIE-Care Analyst - 06/19/19 11:35:19 Halima Tripathi RN-CHESTNUT TANNER - 06/24/2019 13:47 EDT documented in this encounter Plan of Treatment Not on file documented as of this encounter Visit Diagnoses Not on filedocumented in this encounter
--- OUTSIDE RECORDS SUMMARY | 2024-12-21 10:11 | XMS_ITS | Encounter Summary ---
Author Organization [employer] ([place], [place], [place], [place]) Address [address] [place] [address] Care Team Providers Care Loft Patternmaker Name Role Phone Unavailable Primary Care Provider Unavailabl e Encounter Details Date Type Department Care Team (Late st Contact Info) Description 06/28/2019 Transcribed Document [facility] [place] Family Medicine [address] [place] [address] ProviderMariela MD [address] [place] [address] Social History Tobacco Use Types Packs/Day Years [...] 0830 Faxed clinical review to [facility] at to request approval for extended Ltac services. Auth#[id number]. Pending Approval. Documentation Status Complete : Yes YOANNA ARAUJO RN - 06/28/2019 8:33 EDT Electronically signed by Chantal [facility] Conversion Lean Manufacturing Coordinator Cerner at 06/16/2022 8:09 PM CDT documented in this encounter Plan of Treatment Not on file documented as of this encounter Visit Diagnoses Not on filedocumented in this encounter
--- OUTSIDE RECORDS SUMMARY | 2024-12-21 10:11 | XMS_ITS | Encounter Summary ---
Author Organization [employer] ([place], [place], [place], [place]) Address [address] [place] [address] Care Team Providers Care Supervisor Dumping Name Role Phone Unavailable Primary Care Provider Unavailabl e Encounter Details Date Type Department Care Team (Late st Contact Info) Description 06/27/2019 Transcribed Document [facility] [place] [address] [place] [address] ProviderMariela MD [address] [place], [place] [id number] Social History Tobacco Use Types Packs/Day Years [...] 06/27/2019 3:57 EDT Electronically signed by Chantal [facility] Conversion Railroad Wheels And Axles Inspector Min at 06/16/2022 8:28 PM CDT documented in this encounter Plan of Treatment Not on file documented as of this encounter Visit Diagnoses Not on filedocumented in this encounter
--- OUTSIDE RECORDS SUMMARY | 2024-12-21 10:11 | XMS_ITS | Encounter Summary ---
Author Organization [employer] ([place], [place], [place], [place]) Address [address] [place] [address] Care Team Providers Care Employment Coordinator Name Role Phone Unavailable Primary Care Provider Unavailabl e Encounter Details Date Type Department Care Team (Late st Contact Info) Description 07/13/2019 Transcribed Document [facility] [place] Family Medicine [address] [place] [address] ProviderMariela MD [address] [place], [place] [id number] Social History Tobacco Use Types Packs/Day Years [...]
--- OUTSIDE RECORDS SUMMARY | 2024-12-21 10:11 | XMS_ITS | Encounter Summary ---
Author Organization [employer] ([place], [place], [place], [place]) Address [address] [place] [address] Care Team Providers Care Jail Officer Name Role Phone Unavailable Primary Care Provider Unavailabl e Encounter Details Date Type Department Care Team (Late st Contact Info) Description 08/31/2018 Transcribed Document [facility] [place] [facility] [place] [address] ProviderMariela MD [address] [place] [address] Social History Tobacco Use Types Packs/Day Years [...] EDT Electronically signed by Maureen Cornejo Conversion Employment Security Officer Cerner at 06/16/2022 8:03 PM CDT documented in this encounter Plan of Treatment Not on file documented as of this encounter Visit Diagnoses Not on filedocumented in this encounter
--- OUTSIDE RECORDS SUMMARY | 2024-12-21 10:11 | XMS_ITS | Encounter Summary ---
Author Organization [employer] ([place], [place], [place], [place]) Address [address] [place] [address] Care Team Providers Care Electronics Computer Mechanic Name Role Phone Unavailable Primary Care Provider Unavailabl e Encounter Details Date Type Department Care Team (Late st Contact Info) Description 06/27/2019 Transcribed Document [facility] [place] [facility] [place] [address] ProviderMariela MD [address] [place] [address] Social History Tobacco Use Types Packs/Day Years [...]
--- OUTSIDE RECORDS SUMMARY | 2024-12-21 10:11 | XMS_ITS | Encounter Summary ---
Author Organization [employer] ([place], [place], [place], [place]) Address [address] [place] [address] Care Team Providers Care Dairy Cattle Farm Manager Name Role Phone Unavailable Primary Care Provider Unavailabl e Encounter Details Date Type Department Care Team (Late st Contact Info) Description 06/24/2019 Transcribed Document [facility] [place] [facility] [place] [address] ProviderMariela MD [address] [place] [address] Social History Tobacco Use Types Packs/Day Years [...] Historical ProviderMD - 06/24/2019 2:00 AM CDT Switch Inspector Details Entered On: 06/24/2019 3:32 EDT Performed [...]
--- OUTSIDE RECORDS SUMMARY | 2024-12-21 10:11 | XMS_ITS | Encounter Summary ---
Author Organization [employer] ([place], [place], [place], [place]) Address [address] [place] [address] Care Team Providers Care Business Strategy Manager Name Role Phone Unavailable Primary Care Provider Unavailabl e Encounter Details Date Type Department Care Team (Late st Contact Info) Description 06/24/2019 Transcribed Document [facility] [place] Family Medicine [facility] [place] [address] ProviderMariela MD [facility] [place] [address] Social History Tobacco Use Types [...] (JUN 21) L 1.7 (JUN 19) Micro: [facility]: 06/15 [facility] Blood cultures positive for group B strep and 2/2 bottles SJE: 06/16 fluid aspiration of left knee shows 118,150 white blood cells, GPC 06/16 repeat blood cultures with Group B Strep 06/16 MRSA surveillance culture and pro/pending 06/16 Urine culture in process/pending Rad: Radiology Results (Last 48 hours) [id number] -- 06/16/2019 21:08 CR Knee 1 or [...] - wbc down and no fevers continue termite treater abx will monitor documented in this encounter Plan of Treatment Not on file documented as of this encounter Visit Diagnoses Not on filedocumented in this encounter
--- OUTSIDE RECORDS SUMMARY | 2024-12-21 10:11 | XMS_ITS | Encounter Summary ---
Author Organization [employer] ([place], [place], [place], [place]) Address [address] [place] [address] Care Team Providers Care Tableau Developer Name Role Phone Unavailable Primary Care Provider Unavailabl e Encounter Details Date Type Department Care Team (Late st Contact Info) Description 06/16/2019 Transcribed Document [facility] [place] Family Medicine [address] [place] [address] ProviderMariela MD [address] [place] [address] Social History Tobacco Use Types Packs/Day Years [...]
--- OUTSIDE RECORDS SUMMARY | 2024-12-21 10:11 | XMS_ITS | Encounter Summary ---
Author Organization [employer] ([place], [place], [place], [place]) Address [address] [place] [address] Care Team Providers Care Campus Monitor Name Role Phone Unavailable Primary Care Provider Unavailabl e Encounter Details Date Type Department Care Team (Late st Contact Info) Description 06/28/2019 Transcribed Document [facility] [place] [address] [place] [address] ProviderMariela MD [address] [place] [id number] Social History Tobacco Use Types Packs/Day Years [...]
--- OUTSIDE RECORDS SUMMARY | 2024-12-21 10:11 | XMS_ITS | Encounter Summary ---
Author Organization [email or web address] ([place], [place], [place], [place]) Address [address] [place] [address] Care Team Providers Care Infrastructure Software Engineer Name Role Phone Unavailable Primary Care Provider Unavailabl e Encounter Details Date Type Department Care Team (Late st Contact Info) Description 08/30/2018 Transcribed Document [facility] [place] [facility] [place] [address] ProviderMariela MD [facility] [place], [place] [id number] Social History Tobacco Use Types Packs/Day Years [...] Policy Numbers : Insurance 1 Health Plan: [facility] MEDICARE ADVANTAGE Policy Number: [id number] Authorization Number: [id number] Insurance Primary Name : [employer] medicare advantage [id number] Authorization Status-Primary : Admit approved Reference Number-Primary : [id number] Authorization Number-Primary : [id number] Authorized Service Begin Date-Primary : 08/22/2018 EDT Authorized Service End Date-Primary : 08/29/2018 EDT Authorization Comments-Primary : [facility] approved per website Historical Authorization Comments-Primary : Comment 1: Clinicals faxed to [facility] via [employer] (Jett Arroyo Mkt Front Desk Lead-Utilization Mgt 08/23/2018 09:50) TIESHA AQUINO RN-Utilization Review - 08/30/2018 12:06 EDT documented in this encounter Plan of Treatment Not on file documented as of this encounter Visit Diagnoses Not on filedocumented in this encounter
--- OUTSIDE RECORDS SUMMARY | 2024-12-21 10:11 | XMS_ITS | Encounter Summary ---
Author Organization [employer] ([place], [place], [place], [place]) Address [address] [place] [address] Care Team Providers Care Wool Washer Feeder Name Role Phone Unavailable Primary Care Provider Unavailabl e Encounter Details Date Type Department Care Team (Late st Contact Info) Description 06/23/2019 Transcribed Document [facility] [place] [facility] [place] [address] ProviderMariela MD [address] [place] [address] Social History Tobacco Use Types Packs/Day [...]
--- OUTSIDE RECORDS SUMMARY | 2024-12-21 10:12 | XMS_ITS | Encounter Summary ---
Author Organization [employer] ([place], [place], [place], [place]) Address [address] [place] [address] Care Team Providers Care Bullet Assembly Press Operator Name Role Phone Unavailable Primary Care Provider Unavailabl e Encounter Details Date Type Department Care Team (Late st Contact Info) Description 06/16/2019 Transcribed Document [facility] [place] [address] ProviderMariela MD [address] [place] [address] Social History Tobacco Use Types Packs/Day Years [...]
--- OUTSIDE RECORDS SUMMARY | 2024-12-21 10:12 | XMS_ITS | Encounter Summary ---
Author Organization [employer] ([place], [place], [place], [place]) Address [address] [place] [address] Care Team Providers Care Lawn Technician Name Role Phone Unavailable Primary Care Provider Unavailabl e Encounter Details Date Type Department Care Team (Late st Contact Info) Description 06/28/2019 Transcribed Document [facility] [place] [facility] [place] [address] ProviderMariela MD [address] [place], [place] [id number] Social History Tobacco Use Types Packs/Day Years [...] TAN BRYANT RN Interdisciplinary Rounds Working Summary [facility] Interdisciplinary Rounds Note : 06/27: 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
--- OUTSIDE RECORDS SUMMARY | 2024-12-21 10:12 | XMS_ITS | Encounter Summary ---
Author Organization [employer] ([place], [place], [place], [place]) Address [address] [place] [address] Care Team Providers Care Bag Loader Name Role Phone Unavailable Primary Care Provider Unavailabl e Encounter Details Date Type Department Care Team (Late st Contact Info) Description 06/27/2019 Transcribed Document [facility] [place] [facility] [place] [address] ProviderMariela MD [address] [place] [phone] Social History Tobacco Use Types Packs/Day Years [...] disease: Tyrell Stock M.D. Admitting physician : [facility] medicine, internal medicine, Donna Jaffe M.D. [...] infection and recurrent falls, was admitted to [facility] with a periprosthetic Left knee infection. [...] please see discharge summary and H&P from [facility].} Postoperative Information Patient had surgery today [...] BID fluticasone 50 mcg/inh nasal spray 2 [place], PRN, Nostrils Both, BID furosemide 40 mg [...] 0.9% 50 mL 2 Gram, IV Piggyback, [id number] cyanocobalamin 1,000 mcg tab 5,000 mcg 5 Tab, Oral, Daily DULoxetine DR 60 mg cap 60 mg 1 Cap, Oral, Daily enoxaparin 40 mg/0.4 mL inj 40 mg 0.4 mL, SubCutaneous, [id number] fluconazole 100 mg tab 100 mg 1 [...] fluticasone 0.05% nasal spray 100 mcg 2 [place], Nostrils Both, BID magnesium hydroxide 8% liq [...] left knee ORIF. lap band gastric bypass. [place] filter. Social History patient is and has [...] left knee pain and swelling. Integumentary: Warm, [place], Intact, No pallor, No rash, left knee [...] % 20.8 % Lymph # 2.21 x10(3)/uL [place] % 9.4 % HI [place] # 1.00 K/uL Eos % 2.6 % [...] % 24.4 % Lymph # 2.42 K/uL [place] % 8.7 % [place] # 0.86 K/uL [place] Eos % 2.5 [...] supplement and support. Electronically signed by Chantal [facility] Conversion Public Address Technician Cerner at 06/16/2022 8:24 PM CDT documented in this encounter Plan of Treatment Not on file documented as of this encounter Visit Diagnoses Not on filedocumented in this encounter
--- OUTSIDE RECORDS SUMMARY | 2024-12-21 10:12 | XMS_ITS | Encounter Summary ---
Author Organization [employer] ([place], [place], [place], [place]) Address [address] [place] [address] Care Team Providers Care Treasury Management Sales Consultant Name Role Phone Unavailable Primary Care Provider Unavailabl e Encounter Details Date Type Department Care Team (Late st Contact Info) Description 08/22/2018 Transcribed Document [facility] [place] Family Medicine [facility] [place] [address] ProviderMariela MD [facility] [place], [place] [phone] Social History Tobacco Use Types Packs/Day Years [...] EDT Performed On: 08/22/2018 12:33 EDT by Vianac Morgan RN Advance Directive Patient has Advance [...] Wheelchair Legal Guardian : Son Support Person/Patient Cardiology Clinical Consultant : Yes Support Person/Pt Rep Name : Sam Rust Yen Support Person/Pt Rep Contact Information : son Vipul) [phone] (Nancy Rust [phone] Want Family/Rep/Phys Notified of Admit : No Emergency Contact #1 : Sy Emergency Contact #1 Emergency Contact #1 Relationship : son Emergency Contact #2 : . Emergency Contact #2 Phone Number : . Emergency Contact #2 Relationship : . Information Obtained From : Patient Primary Language : Kenyan Preferred Communication Mode : Verbal Communication Barrier [...] Level : 46 or > High Risk [place] Fall Interventions : Adequate lighting, Assistive devices [...] Source : Stated Height Entry Format : [place] Height, Feet : 4 ft(Converted to: 122 cm, 48 Inch) Height, Inches : 11.5 Inch(Converted to: 0 ft 12 Inch, 29.21 cm) Clinical Height : 151.13 cm Weight Source : Standing scale Weight Entry Format : [place] Clinical Dosing Weight : 97.73 kg Weight, Pounds : 215 lb Body Surface Area (BSA) : 1.91 m2 Body Mass Index : 42.8 kg/m2 (>HHI) [place] Body Weight : 44 kg Vianca Morgan [...] History Weight Entry Format Nutrition History : [place] Usual Weight, Pounds : 210 lb Clinical [...] Vianca Morgan RN - 08/22/2018 12:33 EDT Electronically signed by Maureen Cornejo Conversion Professor Of Business Administration Cerner at 06/16/2022 8:02 PM CDT documented in this encounter Plan of Treatment Not on file documented as of this encounter Visit Diagnoses Not on filedocumented in this encounter
--- OUTSIDE RECORDS SUMMARY | 2024-12-21 10:12 | XMS_ITS | Encounter Summary ---
Author Organization [employer] ([place], [place], [place], [place]) Address [address] [place] [address] Care Team Providers Care Square Cutter Name Role Phone Unavailable Primary Care Provider Unavailabl e Encounter Details Date Type Department Care Team (Late st Contact Info) Description 06/27/2019 Transcribed Document [facility] [place] [facility] [place] [address] ProviderMariela MD [address] [place] [address] Social History Tobacco Use Types Packs/Day Years [...] Historical ProviderMD - 06/27/2019 2:00 AM CDT Magnetic Grinder Operator Details Entered On: 06/27/2019 3:56 EDT Performed [...]
--- OUTSIDE RECORDS SUMMARY | 2024-12-21 10:12 | XMS_ITS | Encounter Summary ---
Author Organization [employer] ([place], [place], [place], [place]) Address [address] [place] [address] Care Team Providers Care Warp Yarn Sorter Name Role Phone Unavailable Primary Care Provider Unavailabl e Encounter Details Date Type Department Care Team (Late st Contact Info) Description 07/12/2019 Transcribed Document [facility] Radiology [address] [place] [address] Shawanda Barahona MD [address] [id number] Social History Tobacco Use Types Packs/Day Years [...] (JULY 06) L 2.9 (JULY 05) Micro: [facility]: 06/15 [facility] Blood cultures positive [...]
--- OUTSIDE RECORDS SUMMARY | 2024-12-21 10:12 | XMS_ITS | Encounter Summary ---
Author Organization [employer] ([place], [place], [place], [place]) Address [address] [place] [address] Care Team Providers Care Machine Lacer Name Role Phone Unavailable Primary Care Provider Unavailabl e Encounter Details Date Type Department Care Team (Late st Contact Info) Description 06/17/2019 Transcribed Document [facility] [place] [facility] [place] [address] ProviderMariela MD [facility] [place] [address] Social History Tobacco Use Types [...] Associated Diagnoses: None Author: ROJELIO NUNEZ, [facility] Pharmacy Note: Vancomycin per Pharmacy Clinical Pharmacy [...]
--- OUTSIDE RECORDS SUMMARY | 2024-12-21 10:12 | XMS_ITS | Encounter Summary ---
Author Organization [employer] ([place], [place], [place], [place]) Address [address] [place] [address] Care Team Providers Care Control Technician Name Role Phone Unavailable Primary Care Provider Unavailabl e Encounter Details Date Type Department Care Team (Late st Contact Info) Description 06/16/2019 Transcribed Document [facility] [place] [facility] [address] ProviderMariela MD [address] [place] [address] Social History Tobacco Use Types Packs/Day [...]
--- OUTSIDE RECORDS SUMMARY | 2024-12-21 10:12 | XMS_ITS | Encounter Summary ---
Author Organization [employer] ([place], [place], [place], [place]) Address [address] [place] [address] Care Team Providers Care Fiber Optic Central Office Installer Name Role Phone Unavailable Primary Care Provider Unavailabl e Encounter Details Date Type Department Care Team (Late st Contact Info) Description 06/16/2019 Transcribed Document [facility] [place] Family Medicine [facility] [place] [address] ProviderMariela MD [address] [place] [phone] Social History Tobacco Use Types Packs/Day Years [...] Bed Legal Guardian : No Support Person/Patient Data Manager : Yes Support Person/Pt Rep Name : Sam Rust Yen Contact Password : Keily Support Person/Pt Rep Contact Information : son (Sam) [phone] (Nancy Rust [phone] Want Family/Rep/Phys Notified of Admit : No [...] Obtained From : Patient Primary Language : French Preferred Communication Mode : Verbal Communication Barrier [...] Level : 46 or > High Risk [place] Fall Interventions : Adequate lighting, Assistive devices [...] Verbalizes understanding Wheelchair Safety : Verbalizes understanding Svtilana Ugarte RN - 06/17/2019 0:08 EDT Barriers [...] Source : Stated Height Entry Format : [place] Height, Feet : 4 ft(Converted to: 122 cm, 48 Inch) Height, Inches : 11 Inch(Converted to: 0 ft 11 Inch, 27.94 cm) Clinical Height : 149.86 cm Weight Source : Bed scale Weight Entry Format : [place] Clinical Dosing Weight : 91.82 kg Weight, Pounds : 202 lb Body Surface Area (BSA) : 1.85 m2 Body Mass Index : 40.9 kg/m2 (>HHI) [place] Body Weight : 43 kg Svitlana Ugarte [...] Svitlana Ugarte RN - 06/17/2019 0:08 EDT [place] Suicide Severity Rating Scale (C-SSRS) CSSRS Past [...] RN - 06/17/2019 0:08 EDT Spiritual/Cultural Needs Baptism Preference : Spiritism Svitlana Ugarte RN - 06/17/2019 0:08 EDT [...]
--- OUTSIDE RECORDS SUMMARY | 2024-12-21 10:12 | XMS_ITS | Encounter Summary ---
Author Organization [email or web address] ([place], [place], [place], [place]) Address [address] [place] [address] Care Team Providers Care Industrial Engineering Analyst Name Role Phone Unavailable Primary Care Provider Unavailabl e Encounter Details Date Type Department Care Team (Late st Contact Info) Description 06/17/2019 Transcribed Document [facility] [place] [facility] [place] [address] ProviderMariela MD [address] [place] [address] Social History Tobacco Use Types Packs/Day Years [...] Historical ProviderMD - 06/17/2019 2:00 AM CDT Supervisor Wool Shearing Details Entered On: 06/17/2019 2:07 EDT Performed [...] 06/17/2019 2:06 EDT Electronically signed by Chantal [facility] Conversion Child Care Attendant Cerner at 06/16/2022 8:17 PM CDT documented in this encounter Plan of Treatment Not on file documented as of this encounter Visit Diagnoses Not on filedocumented in this encounter
--- OUTSIDE RECORDS SUMMARY | 2024-12-21 10:12 | XMS_ITS | Encounter Summary ---
Author Organization [employer] ([place], [place], [place], [place]) Address [address] [place] [address] Care Team Providers Care Auto Electrician Name Role Phone Unavailable Primary Care Provider Unavailabl e Encounter Details Date Type Department Care Team (Late st Contact Info) Description 08/22/2018 Transcribed Document [facility] [place] Family Medicine [facility] [place] [address] ProviderMariela MD [address] [place] [address] Social History Tobacco Use Types Packs/Day [...] form. Electronically signed by Maureen Cornejo Conversion Solar Maintenance Technician Cerner at 06/21/2022 2:04 PM CDT documented in this encounter Plan of Treatment Not on file documented as of this encounter Visit Diagnoses Not on filedocumented in this encounter
--- OUTSIDE RECORDS SUMMARY | 2024-12-21 10:12 | XMS_ITS | Encounter Summary ---
Author Organization [employer] ([place], [place], [place], [place]) Address [address] [place] [address] Care Team Providers Care Insulation Board Back Tender Name Role Phone Unavailable Primary Care Provider Unavailabl e Encounter Details Date Type Department Care Team (Late st Contact Info) Description 06/16/2019 Transcribed Document [facility] [place] [facility] [place] [address] ProviderMariela MD [address] [place] [address] Social History Tobacco Use Types Packs/Day Years [...] On: 06/16/2019 21:08 EDT by Dylan Alvarez WINDOWS SUPPORT ENGINEER LEAD Meds to Bed Enrollment Patient Enrollment Decision: : No/do not enroll in meds to bed program Reason for Declining Meds to Bed Program: : Other: NA Dylan Alvarez WINDOWS SUPPORT ENGINEER LEAD - 06/19/2019 12:37 EDT documented in this encounter Plan of Treatment Not on file documented as of this encounter Visit Diagnoses Not on filedocumented in this encounter
--- OUTSIDE RECORDS SUMMARY | 2024-12-21 10:12 | XMS_ITS | Encounter Summary ---
Author Organization [employer] ([place], [place], [place], [place]) Address [address] [place] [address] Care Team Providers Care Reference Investigator Name Role Phone Unavailable Primary Care Provider Unavailabl e Encounter Details Date Type Department Care Team (Late st Contact Info) Description 06/28/2019 Transcribed Document [facility] Family Medicine [facility] [place] [address] ProviderMariela MD [address] [place] [address] Social History Tobacco Use Types Packs/Day [...] 0.9% 50 mL 2 Gram, IV Piggyback, [id number] cyanocobalamin 1,000 mcg tab 5,000 mcg 5 [...] fluticasone 0.05% nasal spray 100 mcg 2 [place], Nostrils Both, BID magnesium hydroxide 8% liq [...] % 20.8 % Lymph # 2.21 x10(3)/uL [place] % 9.4 % [place] # 1.00 K/uL Eos % 2.6 % [...]
--- OUTSIDE RECORDS SUMMARY | 2024-12-21 10:12 | XMS_ITS | Encounter Summary ---
Author Organization [employer] ([place], [place], [place], [place]) Address [address] [place] [address] Care Team Providers Care Watch Electrician Name Role Phone Unavailable Primary Care Provider Unavailabl e Encounter Details Date Type Department Care Team (Late st Contact Info) Description 06/28/2019 Transcribed Document [facility] [place] Family Medicine [address] [place] [address] ProviderMariela MD [address] [place], [place] [phone] Social History Tobacco Use Types Packs/Day Years [...]
--- OUTSIDE RECORDS SUMMARY | 2024-12-21 10:12 | XMS_ITS | Encounter Summary ---
Author Organization [employer] ([place], [place], [place], [place]) Address [address] [place] [address] Care Team Providers Care Escrow Representative Name Role Phone Unavailable Primary Care Provider Unavailabl e Encounter Details Date Type Department Care Team (Late st Contact Info) Description 07/13/2019 Transcribed Document [facility] [place] [address] [place] [address] ProviderMariela MD [address] [place], [place] [phone] Social History Tobacco Use Types Packs/Day Years [...]
--- OUTSIDE RECORDS SUMMARY | 2024-12-21 10:13 | XMS_ITS | Encounter Summary ---
Author Organization [employer] ([place], [place], [place], [place]) Address [address] [place] [address] Care Team Providers Care Law Reporter Name Role Phone Unavailable Primary Care Provider Unavailabl e Encounter Details Date Type Department Care Team (Late st Contact Info) Description 07/13/2019 Transcribed Document [facility] [place] [facility] [place] [address] ProviderMariela MD [address] [place] [address] Social History Tobacco Use Types Packs/Day Years [...]
--- OUTSIDE RECORDS SUMMARY | 2024-12-21 10:13 | XMS_ITS | Encounter Summary ---
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
--- OUTSIDE RECORDS SUMMARY | 2024-12-21 10:13 | XMS_ITS | Encounter Summary ---
Author Organization [employer] ([place], [place], [place], [place]) Address [address] [place] [address] Care Team Providers Care Mold Breaker Name Role Phone Unavailable Primary Care Provider Unavailabl e Encounter Details Date Type Department Care Team (Late st Contact Info) Description 06/17/2019 Transcribed Document [facility] [place] Medicine [facility] [place] [address] ProviderMariela MD [address] [place] [address] Social History Tobacco Use Types Packs/Day [...]
--- OUTSIDE RECORDS SUMMARY | 2024-12-21 10:13 | XMS_ITS | Encounter Summary ---
Author Organization [employer] ([place], [place], [place], [place]) Address [address] [place] [address] Care Team Providers Care Book Author Name Role Phone Unavailable Primary Care Provider Unavailabl e Encounter Details Date Type Department Care Team (Late st Contact Info) Description 06/17/2019 Transcribed Document [facility] [place] [facility] [place] [address] ProviderMariela MD [address] [place] [phone] Social History Tobacco Use Types Packs/Day Years [...] ambulation. Due to this she presented to [facility]. There she had a CT of the [...] orthopedic history she was subsequently transferred to [facility] for further evaluation of the left knee. Blood cultures from [facility] with Group B Strep. Since arrival [...] 50 m - 2 Gram, IV Piggyback, [id number], infuse over 30 Minute(s), Routine Immunology influenza virus vaccine, inactivated - 0.5 mL, IntraMuscular, Inj, [id number] Cardiovascular cloNIDine - 0.1 mg, Oral, Tab, [...] (fluticasone 50 mcg/inh nasal spray) - 2 [place], Nostrils Both, [place], BID, PRN for Allergies, Routine Pain Meds [...] FEMORAL W SYNTH SUB, CEMENT, OPEN (10/26/2016), [place] filter, lap band gastric bypass, left knee [...] 16) ALB L 2.0 (JUN 16) Micro: [facility]: 06/15 [facility] Blood cultures positive for group [...] will follow over the weekend, then another [facility] physician will take over care on Wednesday. Call if any questions. Dr. Newton Santana has obtained history, performed physical examination and formulated the above plan of care Alpesh Velazquez APRN for Dr. Newton Santana [facility] I have edited this note to reflect my history, exam, assessment and plan. documented in this encounter Plan of Treatment Not on file documented as of this encounter Visit Diagnoses Not on filedocumented in this encounter
--- OUTSIDE RECORDS SUMMARY | 2024-12-21 10:13 | XMS_ITS | Encounter Summary ---
Author Organization [employer] ([place], [place], [place], [place]) Address [address] [place] [address] Care Team Providers Care Cut Roll Machine Offbearer Name Role Phone Unavailable Primary Care Provider Unavailabl e Encounter Details Date Type Department Care Team (Late st Contact Info) Description 06/29/2019 Transcribed Document [facility] [place] Family Medicine [facility] [place] [address] ProviderMariela MD [address] [place] [address] Social History Tobacco Use Types Packs/Day Years [...] Historical ProviderMD - 06/29/2019 2:00 AM CDT Convention Services Director Details Entered On: 06/29/2019 3:41 EDT Performed [...]
--- OUTSIDE RECORDS SUMMARY | 2024-12-21 10:13 | XMS_ITS | Encounter Summary ---
Author Organization [employer] ([place], [place], [place], [place]) Address [address] [place] [address] Care Team Providers Care Metal Sprayer Name Role Phone Unavailable Primary Care Provider Unavailabl e Encounter Details Date Type Department Care Team (Late st Contact Info) Description 08/11/2018 Transcribed Document [facility] [place] [facility] [address] ProviderMariela MD [address] [place] [address] Social History Tobacco Use Types Packs/Day [...] Knee Pain Primary Care Provider NILA CHO, [facility] History of Present Illness This patient [...] and Lasix. 5. Hypothyroidism- Continue Synthroid. 6. SHERYR- Continue CPAP. 7. Asthma- Nebs/Inhalers prn. 8. [...] BID fluticasone 50 mcg/inh nasal spray 2 [place], PRN, Nostrils Both, BID Lasix 40 mg [...] nitrites and LE Electronically signed by Chantal, [facility] Conversion Diesel Engine Operator Cerner at 06/16/2022 8:22 PM CDT documented in this encounter Plan of Treatment Not on file documented as of this encounter Visit Diagnoses Not on filedocumented in this encounter
--- OUTSIDE RECORDS SUMMARY | 2024-12-21 10:13 | XMS_ITS | Encounter Summary ---
Author Organization [employer] ([place], [place], [place], [place]) Address [address] [place] [address] Care Team Providers Care Gravel Roofer Name Role Phone Unavailable Primary Care Provider Unavailabl e Encounter Details Date Type Department Care Team (Late st Contact Info) Description 06/17/2019 Transcribed Document [facility] [place] [facility] [place] [address] ProviderMariela MD [address] [place] [address] Social History Tobacco Use Types Packs/Day [...] going to check with Dr. Waddell at [facility] for potential consultation for amputation versus [...] NONAUT RED BLOOD CELLS IN PERIPH VEIN, [facility] (10/28/2016), REMOVAL OF SYNTH SUB FROM L [...] PRN fluticasone 50 mcg/inh nasal spray, 2 [place], Nostrils Both, BID, PRN gabapentin, 300 mg= 1 Cap, Oral, At Bedtime, PRN influenza virus vaccine, inactivated, 0.5 mL, IntraMuscular, [id number] lidocaine 1% preservative-free injectable solution, 10 mL, [...] BID fluticasone 50 mcg/inh nasal spray, 2 [place], Nostrils Both, BID, PRN Lasix 40 mg [...] ALYC # 1 K/uL 06/17/2019 03:44 EDT [place] Percent Man 5 % 06/17/2019 03:44 EDT RBC Morphology Normal 06/17/2019 03:44 EDT Toxic Granulation 3+ (Abnormal) 06/17/2019 03:[address] Estimate Adequate 06/17/2019 03:44 EDT Sed Rate Auto 130 mm/Hr (High) 06/17/2019 03:44 EDT Urine Type. U CleanCatch 06/17/2019 00:16 EDT Urine Color DK YELLOW 06/17/2019 00:16 EDT Urine Appearance CLEAR2 06/17/2019 00:16 EDT Urine Specific [place] 1.033 (High) 06/17/2019 00:16 EDT Urine pH [...] Procalcitonin 6.68 ng/mL (Critical) 06/17/2019 03:44 EDT Electronically signed by Maureen Cornejo Conversion Technical Education Teacher Cerner at 06/16/2022 8:06 PM CDT documented in this encounter Plan of Treatment Not on file documented as of this encounter Visit Diagnoses Not on filedocumented in this encounter
--- OUTSIDE RECORDS SUMMARY | 2024-12-21 10:13 | XMS_ITS | Encounter Summary ---
Author Organization [employer] ([place], [place], [place], [place]) Address [address] [place] [address] Care Team Providers Care Adjunct Faculty For Medical Terminology Name Role Phone Unavailable Primary Care Provider Unavailabl e Encounter Details Date Type Department Care Team (Late st Contact Info) Description 08/22/2018 Transcribed Document [facility] Family Medicine [address] [place] [address] ProviderMariela MD [address] [place], [place] [phone] Social History Tobacco Use Types Packs/Day Years [...]
--- OUTSIDE RECORDS SUMMARY | 2024-12-21 10:13 | XMS_ITS | Encounter Summary ---
Author Organization [employer] ([place], [place], [place], [place]) Address [address] [place] [address] Care Team Providers Care Hot Box Checker Name Role Phone Unavailable Primary Care Provider Unavailabl e Encounter Details Date Type Department Care Team (Late st Contact Info) Description 07/13/2019 Transcribed Document [facility] [place] [facility] [place] [address] ProviderMariela MD [address] [place] [address] Social History Tobacco Use Types [...] a bed, [facility] and needed a current height and weight. Still waiting to see if any other bed offers come through. I also sent referral to [facility]. Care Management Note Report : YOANNA ARAUJO RN - 07/13/19 11:04:03 Yoanna Araujo 07/13/2019 1100 faxed out referral for placement for patient to [facility], [facility] and triology facilities. Awaiting call backs. СВЕТЛАНА WANG - 07/12/19 12:19:17 07/12/2019 Fax received from [facility] with approval for LTAC services with a request for updated discharge plans and clinical info to support needs if not discharged. Auth#[id number]. Clinical review or discharge summary to be faxed by 07/17/2019. YOANNA ARAUJO RN - 07/12/19 08:39:48 Yoanna Araujo 07/12/2019 0830 - faxed clinical review the [facility] at [phone] to request approval for extended ltac services. Auth#[id number], awaiting approval. YOANNA ARAUJO RN - 06/29/19 [...] health and she has been to [facility] in the past. She has the following equipment at home: wheel chair, walker, cane and shower chair. Her discharge plan is to go to rehab prior to returning home. PCP: Flavia MARQUEZ [address] [place] [address] Cigarette Packing Machine Operator: Dr. Shemar Barger [id number] Clemente Del Rio MD - Rheumatology - [address] [place] [address] Preferences: Home Health: [facility]: no preferences DME: [facility] - [address], [place] [address] Penitentiary: [facility] facility: no preferences Will continue to monitor patient for anticipated discharge needs YOANNA ARAUJO RN - 06/29/19 08:30:20 Yoanna Araujo 06/29/2019 0830 received fax from [facility] with approval for extended ltac coverage with next clinical review due on 07/12/2019. Auth#[id number]. Will continue to follow for anticipated discharge needs. YOANNA ARAUJO RN - 06/28/19 08:35:06 Yoanna Araujo 06/28/2019 0830 Faxed clinical review to [facility] at to request approval for extended Ltac services. Auth#[id number]. Pending Approval. Documentation Status Complete : Yes YOANNA ARAUJO RN - 07/13/2019 14:29 EDT documented in this encounter Plan of Treatment Not on file documented as of this encounter Visit Diagnoses Not on filedocumented in this encounter
--- OUTSIDE RECORDS SUMMARY | 2024-12-21 10:13 | XMS_ITS | Encounter Summary ---
Author Organization [employer] ([place], [place], [place], [place]) Address [address] [place] [address] Care Team Providers Care Shift Supervisor Rn Name Role Phone Unavailable Primary Care Provider Unavailabl e Encounter Details Date Type Department Care Team (Late st Contact Info) Description 07/13/2019 Transcribed Document [facility] [place] Family [place] [facility] [place] [address] ProviderMariela MD [address] [place] [address] Social History Tobacco Use Types Packs/Day [...] Comment, OT : Given LH sponge, leg building superintendent and gas prover for ADLs in room. Declines further practice from OT. Will sign off at this time. NILA RAMAN OTR/aBrtolo - 07/13/2019 14:14 EDT Jail Goals, OT Bathing LTG Grid Goal #1 [...]
--- OUTSIDE RECORDS SUMMARY | 2024-12-21 10:13 | XMS_ITS | Encounter Summary ---
Author Organization [employer] ([place], [place], [place], [place]) Address [address] [place] [address] Care Team Providers Care Assistant Facility Manager Name Role Phone Unavailable Primary Care Provider Unavailabl e Encounter Details Date Type Department Care Team (Late st Contact Info) Description 08/11/2018 Transcribed Document [facility] [place] Family Medicine On [facility] of [facility] [place] [address] ProviderMariela MD [address] [place], [place] [id number] Social History Tobacco Use Types Packs/Day Years [...]
--- OUTSIDE RECORDS SUMMARY | 2024-12-21 10:13 | XMS_ITS | Encounter Summary ---
Author Organization [employer] ([place], [place], [place], [place]) Address [address] [place] [address] Care Team Providers Care Boat Engine Mechanic Name Role Phone Unavailable Primary Care Provider Unavailabl e Encounter Details Date Type Department Care Team (Late st Contact Info) Description 06/28/2019 Transcribed Document [facility] [place] Family Medicine [address] [place] [address] ProviderMariela MD [address] [place] [address] Social History Tobacco Use Types Packs/Day Years [...]
--- OUTSIDE RECORDS SUMMARY | 2024-12-21 10:13 | XMS_ITS | Encounter Summary ---
Author Organization [employer] ([place], [place], [place], [place]) Address [address] [place] [address] Care Team Providers Care Pediatric Dietician Name Role Phone Unavailable Primary Care Provider Unavailabl e Encounter Details Date Type Department Care Team (Late st Contact Info) Description 06/29/2019 Transcribed Document [facility] [place] Family Medicine [facility] [place] [address] ProviderMariela MD [address] [place] [id number] Social History Tobacco Use Types Packs/Day Years [...] 26) ALB L 2.4 (JUN 26) Micro: [facility]: 06/15 [facility] Blood cultures positive for group [...]
--- OUTSIDE RECORDS SUMMARY | 2024-12-21 10:13 | XMS_ITS | Encounter Summary ---
Author Organization [employer] ([place], [place], [place], [place]) Address [address] [place] [address] Care Team Providers Care Quality Control Supervisor Name Role Phone Unavailable Primary Care Provider Unavailabl e Encounter Details Date Type Department Care Team (Late st Contact Info) Description 08/11/2018 Transcribed Document [facility] [place] [address] ProviderMariela MD [address] [place] [address] Social History Tobacco Use Types Packs/Day [...] Source : Stated Height Entry Format : [place] Height, Feet : 4 ft(Converted to: 122 cm, 48 Inch) Height, Inches : 11.5 Inch(Converted to: 0 ft 12 Inch, 29.21 cm) Clinical Height : 151.13 cm Weight Source : Standing scale Weight Entry Format : [place] Clinical Dosing Weight : 97.73 kg Weight, Pounds : 215 lb Body Surface Area (BSA) : 1.91 m2 Body Mass Index : 42.8 kg/m2 (>HHI) [place] Body Weight : 44 kg Karen Flores [...] Ambulatory Legal Guardian : Son Support Person/Patient Sap Consultant : Yes Support Person/Pt Rep Name : Sam Rust Yen Support Person/Pt Rep Contact Information : son (Sam) [phone] (Nancy Rust [phone] Want Family/Rep/Phys Notified of Admit : No [...]
--- OUTSIDE RECORDS SUMMARY | 2024-12-21 10:13 | XMS_ITS | Encounter Summary ---
Author Organization [employer] ([place], [place], [place], [place]) Address [address] [place] [address] Care Team Providers Care Basketballs And Footballs Reverser Name Role Phone Unavailable Primary Care Provider Unavailabl e Encounter Details Date Type Department Care Team (Late st Contact Info) Description 06/28/2019 Transcribed Document [facility] [place] Family Medicine [address] [place] [address] ProviderMariela MD [address] [place] [address] Social History Tobacco Use Types Packs/Day Years [...] Daniella Hunt Dietitian - 06/28/2019 9:04 EDT Electronically signed by Maureen Cornejo Conversion Mixed Signal Design Engineer [employer] at 06/16/2022 8:22 PM CDT documented in this encounter Plan of Treatment Not on file documented as of this encounter Visit Diagnoses Not on filedocumented in this encounter
--- OUTSIDE RECORDS SUMMARY | 2024-12-21 10:13 | XMS_ITS | Encounter Summary ---
Author Organization [employer] ([place], [place], [place], [place]) Address [address] [place] [address] Care Team Providers Care Mold Stamper And Repairer Name Role Phone Unavailable Primary Care Provider Unavailabl e Encounter Details Date Type Department Care Team (Late st Contact Info) Description 06/28/2019 Transcribed Document [facility] [place] Family Medicine [place] [address] ProviderMariela MD [address] [place] [address] Social History Tobacco Use Types Packs/Day Years [...] 06/28/2019 9:26 EDT Electronically signed by Chantal [facility] Conversion Pail Tester Cerner at 06/16/2022 8:28 PM CDT documented in this encounter Plan of Treatment Not on file documented as of this encounter Visit Diagnoses Not on filedocumented in this encounter
--- OUTSIDE RECORDS SUMMARY | 2024-12-21 10:13 | XMS_ITS | Encounter Summary ---
Author Organization [employer] ([place], [place], [place], [place]) Address [address] [place] [address] Care Team Providers Care Polishing Machine Operator Name Role Phone Unavailable Primary Care Provider Unavailabl e Encounter Details Date Type Department Care Team (Late st Contact Info) Description 08/09/2018 Transcribed Document [facility] [place] Family Medicine [facility] [place] [address] ProviderMariela MD [address] [place] [address] Social History Tobacco Use Types Packs/Day Years [...]
--- OUTSIDE RECORDS SUMMARY | 2024-12-21 10:13 | XMS_ITS | Encounter Summary ---
Author Organization [employer] ([place], [place], [place], [place]) Address [address] [place] [address] Care Team Providers Care Compound Finisher Name Role Phone Unavailable Primary Care Provider Unavailabl e Encounter Details Date Type Department Care Team (Late st Contact Info) Description 06/17/2019 Transcribed Document [facility] [place] Family Medicine [facility] [place] [address] ProviderMariela MD [address] [place] [address] Social History Tobacco Use Types Packs/Day [...] & hypotension , and was transferred to [facility] for high level of care & after [...] modified according to his recommendations. , from [facility] , was consulted & pt had Lt knee aspiration & recommended either Amputation or to transfer pt. to [facility] for Dr.O' Knapp to decide [...] BID fluticasone 50 mcg/inh nasal spray 2 Tibbie, PRN, Nostrils Both, BID Lasix 40 mg [...] 0.9% 50 mL 2 Gram, IV Piggyback, [id number] cyanocobalamin 1,000 mcg tab 5,000 mcg 5 Tab, Oral, Daily docusate sodium 100 mg cap 100 mg 1 Cap, Oral, BID DULoxetine DR 60 mg cap 60 mg 1 Cap, Oral, Daily influenza vaccine, quadrivalent 0.5 mL, IntraMuscular, [id number] levothyroxine 100 mcg tab 100 mcg 1 [...] Oral, Q4H fluticasone 0.05% nasal spray 2 Tibbie, Nostrils Both, BID gabapentin 300 mg cap [...] swelling, No deformity, Normal gait. Integumentary: Warm, [place], Intact, No pallor, No rash, cellulitis Lt [...] ortth.. Electronically signed by Maureen Cornejo Conversion Hydraulic Corrugating Machine Operator Cerner at 06/16/2022 8:05 PM CDT documented in this encounter Plan of Treatment Not on file documented as of this encounter Visit Diagnoses Not on filedocumented in this encounter
--- OUTSIDE RECORDS SUMMARY | 2024-12-21 10:14 | XMS_ITS | Encounter Summary ---
Author Organization [employer] ([place], [place], [place], [place]) Address [address] [place] [address] Care Team Providers Care Haz Tech Name Role Phone Unavailable Primary Care Provider Unavailabl e Encounter Details Date Type Department Care Team (Late st Contact Info) Description 06/29/2019 Transcribed Document [facility] [place] Family Medicine [address] [place] [address] ProviderMariela MD [address] [place], [place] [id number] Social History Tobacco Use Types Packs/Day Years [...] - 06/29/2019 3:42 EDT Electronically signed by Chatnal [facility] Conversion Tube Winder Min at 06/16/2022 8:11 PM CDT documented in this encounter Plan of Treatment Not on file documented as of this encounter Visit Diagnoses Not on filedocumented in this encounter
--- OUTSIDE RECORDS SUMMARY | 2024-12-21 10:14 | XMS_ITS | Encounter Summary ---
Author Organization [employer] ([place], [place], [place], [place]) Address [address] [place] [address] Care Team Providers Care Tile Setter Name Role Phone Unavailable Primary Care Provider Unavailabl e Encounter Details Date Type Department Care Team (Late st Contact Info) Description 07/13/2019 Transcribed Document [facility] [place] [facility] [place] [address] ProviderMariela MD [address] [place] [id number] Social History Tobacco Use Types Packs/Day Years [...] Historical ProviderMD - 07/13/2019 2:00 AM CDT Stave Mill Hand Details Entered On: 07/13/2019 0:59 EDT Performed [...] 07/13/2019 0:59 EDT Electronically signed by Chantal [facility] Conversion Spotter Driver Cerner at 06/16/2022 8:22 PM CDT documented in this encounter Plan of Treatment Not on file documented as of this encounter Visit Diagnoses Not on filedocumented in this encounter
--- OUTSIDE RECORDS SUMMARY | 2024-12-21 10:14 | XMS_ITS | Encounter Summary ---
Author Organization [employer] ([place], [place], [place], [place]) Address [address] [place] [address] Care Team Providers Care Sales Professional Bilingual Name Role Phone Unavailable Primary Care Provider Unavailabl e Encounter Details Date Type Department Care Team (Late st Contact Info) Description 08/22/2018 Transcribed Document [facility] [place] Family Medicine [facility] [place] [address] ProviderMariela MD [facility] [place] [address] Social History Tobacco Use Types [...] RAFAT LEIGH PTA - 08/25/2018 15:45 EDT Translator Interpreter Goals Other PT LTG Grid Goal #1 Goal #2 Goal #3 Other : Patient will ambulate at least 50 feet with RWx and no more than Alexandra without LOB or safety concerns to allow safe household or facility ambulation [facility]. Patient will participate with [...] PTA - 08/25/2018 15:45 EDT RAFAT LEIGH, [facility] - 08/25/2018 15:45 EDT RAFAT LEIGH, [facility] - 08/25/2018 15:45 EDT Treatment Note [...] be discharged from skilled therapy [place] [facility] secondary to flexion restriction and being independent with HEP Plan for Treatment : Discontinue physical therapy per supervising physical therapist. RAFAT LEIGH, [facility] - 08/25/2018 15:45 EDT Pain Assessment Pain Comment : NO c/o pain at rest. RAFAT LEIGH, [facility] - 08/25/2018 15:45 EDT Image 1 - Images currently included in the form version of this document have not been included in the text rendition version of the form. [place] PT Charges PT Therap. Exercise 15 min : 1 RAFAT LEIGH [facility] - 08/25/2018 15:45 EDT documented in this encounter Plan of Treatment Not on file documented as of this encounter Visit Diagnoses Not on filedocumented in this encounter
--- OUTSIDE RECORDS SUMMARY | 2024-12-21 10:14 | XMS_ITS | Encounter Summary ---
Author Organization [employer] ([place], [place], [place], [place]) Address [address] [place] [address] Care Team Providers Care Jboss Architect Name Role Phone Unavailable Primary Care Provider Unavailabl e Encounter Details Date Type Department Care Team (Late st Contact Info) Description 06/28/2019 Transcribed Document [facility] [place] [facility] [place] [address] ProviderMariela MD [address] [place], [place] [phone] Social History Tobacco Use Types Packs/Day Years [...] Historical ProviderMD - 06/28/2019 9:00 AM CD[facility] Entered On: 06/28/2019 15:36 EDT [...] 06/28/2019 15:32 EDT Electronically signed by Chantal, [facility] Conversion Orange Picker Machine Operator Cerner at 06/16/2022 8:20 PM CDT documented in this encounter Plan of Treatment Not on file documented as of this encounter Visit Diagnoses Not on filedocumented in this encounter
--- OUTSIDE RECORDS SUMMARY | 2024-12-21 10:14 | XMS_ITS | Encounter Summary ---
Author Organization [employer] ([place], [place], [place], [place]) Address [address] [place] [address] Care Team Providers Care Manager Outreach Name Role Phone Unavailable Primary Care Provider Unavailabl e Encounter Details Date Type Department Care Team (Late st Contact Info) Description 06/28/2019 Transcribed Document [facility] [place] Family Medicine [facility] [place] [address] ProviderMariela MD [address] [place] [address] Social History Tobacco Use Types Packs/Day Years [...] Historical ProviderMD - 06/28/2019 2:00 AM CDT Incubator Tender Details Entered On: 06/28/2019 6:17 EDT Performed [...]
--- OUTSIDE RECORDS SUMMARY | 2024-12-21 10:14 | XMS_ITS | Data Portability ---
Author Organization [facility] RADHA Bell [place] CL[place]ED Address [address] [place] [address] Assessment No assessment recorded. Plan of Treatment Reminders Order Date Submit Date Provider Last Modified By Organization Details Last Modified Time Details Appointments None recorded. Lab urinalysis panel, auto 2023 024 [facility], [address], [place], [address], 4 08:06:03 urinalysis , dipstick, auto 2017 018 [facility], [address], [place], [address], 8 19:59:53 urinalysis , dipstick, auto 2017 018 [facility], [address], [place], [address], 8 06:37:24 Referral None recorded. Procedures None recorded. Surgeries cystoscopy (SURG) 2023 024 [email or web address] [facility], [address], [place], [address], 4 16:22:49 Imaging US, retroperit oneum, limited - US KIDNEY BILAT WITHOUT BLADDER PLEASE CONTACT SOFIA BARLOW @ 2023 024 [facility] ([facility] [address], [place], [address], 4 15:11:50 CT, abdomen + pelvis, w/wo contrast 2023 024 [facility], [address], [place], [address], 4 14:46:31 US, retroperit oneum, limited - Bilateral Kidney Ultra Sound 2017 019 [facility], [address], [place], [address], 0 05:03:01 US, retroperit oneum, limited 2017 018 [facility], [address] [place], [address], 8 16:10:42 Medication Orders None recorded. Patient TargetsNo targets recorded. Patient Instructions Encounter Date Encounter Id Patient Instructions Last Modified By Organization Details Last Modified Time 07/12/2017 [id number] I counseled the patient that she does not have any malignant appearing cysts. We will plan for follow-up in 6 months with renal ultrasound. We'll plan for renal mass protocol CT scan if there are significant changes on ultrasound follow-up. [email or web address] Not available 07/13/2017 06:37:45 02/14/2018 [id number] Renal cysts appear benign and stable [email or web address] Not available 02/22/2018 20:00:22 11/15/2023 [id number] learning about depression [email or web address] Not available 11/24/2023 08:05:59 Reason for Referral None Reported. Results Created Date Observation Date Name Description Value Unit Range Abnormal Flag Note LastModifiedBy Organization Detail LastModifiedTime 07/13/19 18 07/12/2017 urina lysis , dipst ick, auto Unknown Analyte Yellow Not Available [facility] [address], [place], [address], 07/12/2017 09:28:59 07/13/19 18 07/12/2017 urina lysis , dipst ick, auto Unknown Analyte Clear Not Available [facility] [address] [facility] [address], [place], [address], 07/12/2017 09:28:59 07/13/19 18 07/12/2017 urina lysis , dipst ick, auto Unknown Analyte 1.015 Not Available [facility] [address] [facility] [address], [place], [address], 07/12/2017 09:28:59 07/13/19 18 07/12/2017 urina lysis , dipst ick, auto Unknown Analyte 5.0 Not Available [facility] [address] [place] [address] [address], [place], [address], 07/12/2017 09:28:59 07/13/19 18 07/12/2017 urina lysis , dipst ick, auto Unknown Analyte Negati ve Not Available [facility] [address] [facility] [address], [place], [address], 07/12/2017 09:28:59 07/13/19 18 07/12/2017 urina lysis , dipst ick, auto Unknown Analyte Negati ve Not Available [facility] [address] [facility] [address], [place], [address], 07/12/2017 09:28:59 07/13/19 18 07/12/2017 urina lysis , dipst ick, auto Unknown Analyte Negtiv e Not Available [facility] [address], [place], [address], 07/12/2017 09:28:59 07/13/19 18 07/12/2017 urina lysis , dipst ick, auto Unknown Analyte Normal Not Available [facility] [address], [place], [address], 07/12/2017 09:28:59 07/13/19 18 07/12/2017 urina lysis , dipst ick, auto Unknown Analyte Negati ve Not Available [facility] [address], [place], [address], 07/12/2017 09:28:59 07/13/19 18 07/12/2017 urina lysis , dipst ick, auto Unknown Analyte Normal Not Available [facility] [address], [place], [address], 07/12/2017 09:28:59 07/13/19 18 07/12/2017 urina lysis , dipst ick, auto Unknown Analyte Negati ve Not Available [facility] [address], [place], [address], 07/12/2017 09:28:59 07/13/19 18 07/12/2017 urina lysis , dipst ick, auto Unknown Analyte Negati ve Not Available [facility] [address], [place], [address], 07/12/2017 09:28:59 07/13/19 18 07/12/2017 urina lysis , dipst ick, auto Unknown Analyte Clean Catch Not Available [facility] [address], [place], [address], 07/12/2017 09:28:59 07/13/19 18 07/12/2017 urina lysis , dipst ick, auto Unknown Analyte Automa avery Not Available [facility] [address], [place], [address], 07/12/2017 09:28:59 02/15/20 18 02/14/2018 urina lysis , dipst ick, auto Unknown Analyte Yellow Not Available [facility] [address], [place], [address], 02/14/2018 12:19:32 02/15/20 18 02/14/2018 urina lysis , dipst ick, auto Unknown Analyte Clear Not Available [facility] [address], [place], [address], 02/14/2018 12:19:32 02/15/20 18 02/14/2018 urina lysis , dipst ick, auto Unknown Analyte 1.010 Not Available [facility] [address], [place], [address], 02/14/2018 12:19:32 02/15/20 18 02/14/2018 urina lysis , dipst ick, auto Unknown Analyte 1.003 - 1.035 Not Available [facility] [address], [place], [address], 02/14/2018 12:19:32 02/15/20 18 02/14/2018 urina lysis , dipst ick, auto Unknown Analyte 8.0 Not Available [facility] [address], [place], [address], 02/14/2018 12:19:32 02/15/20 18 02/14/2018 urina lysis , dipst ick, auto Unknown Analyte 5.0 - 8.0 Not Available [facility] [address], [place], [address], 02/14/2018 12:19:32 02/15/20 18 02/14/2018 urina lysis , dipst ick, auto Unknown Analyte Negati ve Not Available [facility] [address], [place], [address], 02/14/2018 12:19:32 02/15/20 18 02/14/2018 urina lysis , dipst ick, auto Unknown Analyte Negati ve Not Available [facility] [address], [place], [address], 02/14/2018 12:19:32 02/15/20 18 02/14/2018 urina lysis , dipst ick, auto Unknown Analyte Negati ve Not Available [facility] [address], [place], [address], 02/14/2018 12:19:32 02/15/20 18 02/14/2018 urina lysis , dipst ick, auto Unknown Analyte Negati ve Not Available [facility] [address], [place], [address], 02/14/2018 12:19:32 02/15/20 18 02/14/2018 urina lysis , dipst ick, auto Unknown Analyte Negtiv e Not Available [facility] [address], [place], [address], 02/14/2018 12:19:32 02/15/20 18 02/14/2018 urina lysis , dipst ick, auto Unknown Analyte Negati ve - Trace Not Available [facility] [address], [place], [address], 02/14/2018 12:19:32 02/15/20 18 02/14/2018 urina lysis , dipst ick, auto Unknown Analyte Normal Not Available [facility] [address], [place], [address], 02/14/2018 12:19:32 02/15/20 18 02/14/2018 urina lysis , dipst ick, auto Unknown Analyte Normal Not Available [facility] [address], [place], [address], 02/14/2018 12:19:32 02/15/20 18 02/14/2018 urina lysis , dipst ick, auto Unknown Analyte Negati ve Not Available [facility] [address], [place], [address], 02/14/2018 12:19:32 02/15/20 18 02/14/2018 urina lysis , dipst ick, auto Unknown Analyte Negati ve Not Available [facility] [address], [place], [address], 02/14/2018 12:19:32 12/17/20 18 02/14/2018 urina lysis , dipst ick, auto Unknown Analyte Normal Not Available [facility] [address], [place], [address], 02/14/2018 12:19:32 02/15/20 18 02/14/2018 urina lysis , dipst ick, auto Unknown Analyte Normal - 1mg/dl Not Available [facility] [address], [place], [address], 02/14/2018 12:19:32 02/15/20 18 02/14/2018 urina lysis , dipst ick, auto Unknown Analyte Negati ve Not Available [facility] [address], [place], [address], 02/14/2018 12:19:32 02/15/20 18 02/14/2018 urina lysis , dipst ick, auto Unknown Analyte Negati ve Not Available [facility] [address], [place], [address], 02/14/2018 12:19:32 02/15/20 18 02/14/2018 urina lysis , dipst ick, auto Unknown Analyte Negati ve Not Available [facility] [address], [place], [address], 02/14/2018 12:19:32 02/15/20 18 02/14/2018 urina lysis , dipst ick, auto Unknown Analyte Negati ve Not Available [facility] [address], [place], [address], 02/14/2018 12:19:32 02/15/20 18 02/14/2018 urina lysis , dipst ick, auto Unknown Analyte Clean Catch Not Available [facility] [address], [place], [address], 02/14/2018 12:19:32 02/15/20 18 02/14/2018 urina lysis , dipst ick, auto Unknown Analyte Automa avery Not Available [facility] [address] [facility] [address], [place], [address], 02/14/2018 12:19:32 05/12/19 24 05/12/2023 urina lysis panel , auto Unknown Analyte Clean Catch Not Available [facility] [address] [place] [address], [address], 05/12/2023 15:17:03 05/12/19 24 05/12/2023 urina lysis panel , auto Unknown Analyte Yellow Not Available [facility] [address] [place] [address], [address], 05/12/2023 15:17:03 05/12/19 24 05/12/2023 urina lysis panel , auto Unknown Analyte Clear Not Available [facility] [address] [place] [address], [address], 05/12/2023 15:17:03 05/12/19 24 05/12/2023 urina lysis panel , auto Unknown Analyte 1.[address] [facility] [address] [place] [address], [address], 05/12/2023 15:17:03 05/12/19 24 05/12/2023 urina lysis panel , auto Unknown Analyte 1.003- 1.035 Not Available [facility] [address] [place], [place] [address], [address], 05/12/2023 15:17:03 05/12/19 24 05/12/2023 urina lysis panel , auto Unknown Analyte 7.[address] [facility] [address] [place] [address], [place], [address], 05/12/2023 15:17:03 05/12/19 24 05/12/2023 urina lysis panel , auto Unknown Analyte 5.0-8. 0 Not Available [facility] [address] [place] [address], [place], [address], 05/12/2023 15:17:03 05/12/19 24 05/12/2023 urina lysis panel , auto Unknown Analyte Negati ve Not Available [facility] [address] [place] [address], [place], [address], 05/12/2023 15:17:03 05/12/19 24 05/12/2023 urina lysis panel , auto Unknown Analyte Negati ve Not Available [facility] [address] [place] [address], [place], [address], 05/12/2023 15:17:03 05/12/19 24 05/12/2023 urina lysis panel , auto Unknown Analyte Negati ve Not Available [facility] [address] [place] [address], [address], 05/12/2023 15:17:03 05/12/19 24 05/12/2023 urina lysis panel , auto Unknown Analyte Negati ve Not Available [facility] [address] [place] [address], [address], 05/12/2023 15:17:03 05/12/19 24 05/12/2023 urina lysis panel , auto Unknown Analyte Negati ve Not Available [facility] [address] [place] [address], [place], [address], 05/12/2023 15:17:03 05/12/19 24 05/12/2023 urina lysis panel , auto Unknown Analyte Negati ve Not Available [facility] [address] [place] [address], [place], [address], 05/12/2023 15:17:03 05/12/19 24 05/12/2023 urina lysis panel , auto Unknown Analyte Normal Not Available [facility] [address] [place] [address], [place], [address], 05/12/2023 15:17:03 05/12/19 24 05/12/2023 urina lysis panel , auto Unknown Analyte Normal Not Available [facility] [address] [place] [address], [address], 05/12/2023 15:17:03 05/12/19 24 05/12/2023 urina lysis panel , auto Unknown Analyte Negati ve Not Available [facility] [address] [place] [address], [address], 05/12/2023 15:17:03 05/12/19 24 05/12/2023 urina lysis panel , auto Unknown Analyte Negati ve Not Available [facility] [address] [place] [address], [address], 05/12/2023 15:17:03 05/12/19 24 05/12/2023 urina lysis panel , auto Unknown Analyte Normal Not Available [facility] [address] [place] [address], [address], 05/12/2023 15:17:03 05/12/19 24 05/12/2023 urina lysis panel , auto Unknown Analyte Normal 1 mg/dl Not Available [facility] [address] [place] [address], [address], 05/12/2023 15:17:03 05/12/19 24 05/12/2023 urina lysis panel , auto Unknown Analyte Negati ve Not Available [facility] [address] [facility] [address], [place], [address], 05/12/2023 15:17:03 05/12/19 24 05/12/2023 urina lysis panel , auto Unknown Analyte Negati ve Not Available [facility] [address] [address], [place], [address], 05/12/2023 15:17:03 05/12/19 24 05/12/2023 urina lysis panel , auto Unknown Analyte Negati ve Not Available [facility] [address] [address], [place], [address], 05/12/2023 15:17:03 05/12/19 24 05/12/2023 urina lysis panel , auto Unknown Analyte Negati ve Not Available [facility] [address] [place] [address], [place], [address], 05/12/2023 15:17:03 11/15/19 24 11/15/2023 urina lysis panel , auto Unknown Analyte Clean Catch Not Available [facility] [address], [place], [address], 11/15/2023 11:49:15 11/15/19 24 11/15/2023 urina lysis panel , auto Unknown Analyte Yellow Not Available [facility] [address], [place], [address], 11/15/2023 11:49:15 11/15/19 24 11/15/2023 urina lysis panel , auto Unknown Analyte Clear Not Available [facility] [address], [place], [address], 11/15/2023 11:49:15 11/15/19 24 11/15/2023 urina lysis panel , auto Unknown Analyte 1.005 Not Available [facility] [address], [place], [address], 11/15/2023 11:49:15 11/15/19 24 11/15/2023 urina lysis panel , auto Unknown Analyte 1.003- 1.035 Not Available [facility] [address], [place], [address], 11/15/2023 11:49:15 11/15/19 24 11/15/2023 urina lysis panel , auto Unknown Analyte 5.0 Not Available [facility] [address], [place], [address], 11/15/2023 11:49:15 11/15/19 24 11/15/2023 urina lysis panel , auto Unknown Analyte 5.0-8. 0 Not Available [facility] [address], [place], [address], 11/15/2023 11:49:15 11/15/19 24 11/15/2023 urina lysis panel , auto Unknown Analyte 25 Carlos/ul Trace Not Available [facility] [address], [place], [address], 11/15/2023 11:49:15 11/15/19 24 11/15/2023 urina lysis panel , auto Unknown Analyte Negati ve Not Available [facility] [address], [place], [address], 11/15/2023 11:49:15 11/15/19 24 11/15/2023 urina lysis panel , auto Unknown Analyte Negati ve Not Available [facility] [address], [place], [address], 11/15/2023 11:49:15 11/15/19 24 11/15/2023 urina lysis panel , auto Unknown Analyte Negati ve Not Available [facility] [address], [place], [address], 11/15/2023 11:49:15 11/15/19 24 11/15/2023 urina lysis panel , auto Unknown Analyte Negati ve Not Available [facility] [address], [place], [address], 11/15/2023 11:49:15 11/15/19 24 11/15/2023 urina lysis panel , auto Unknown Analyte Negati ve Not Available [facility] [address], [place], [address], 11/15/2023 11:49:15 11/15/19 24 11/15/2023 urina lysis panel , auto Unknown Analyte Normal Not Available [facility] [address], [place], [address], 11/15/2023 11:49:15 11/15/19 24 11/15/2023 urina lysis panel , auto Unknown Analyte Normal Not Available [facility] [address], [place], [address], 11/15/2023 11:49:15 11/15/19 24 11/15/2023 urina lysis panel , auto Unknown Analyte Negati ve Not Available [facility] [address], [place], [address], 11/15/2023 11:49:15 11/15/19 24 11/15/2023 urina lysis panel , auto Unknown Analyte Negati ve Not Available [facility] [address], [place], [address], 11/15/2023 11:49:15 11/15/19 24 11/15/2023 urina lysis panel , auto Unknown Analyte Normal Not Available [facility] [address], [place], [address], 11/15/2023 11:49:15 11/15/19 24 11/15/2023 urina lysis panel , auto Unknown Analyte Normal 1 mg/dl Not Available [facility] [address], [place], [address], 11/15/2023 11:49:15 11/15/19 24 11/15/2023 urina lysis panel , auto Unknown Analyte Negati ve Not Available [facility] [address], [place], [address], 11/15/2023 11:49:15 11/15/19 24 11/15/2023 urina lysis panel , auto Unknown Analyte Negati ve Not Available [facility] [address] [facility] [address], [place], [address], 11/15/2023 11:49:15 11/15/19 24 11/15/2023 urina lysis panel , auto Unknown Analyte Negati ve Not Available [facility] [address] [facility] [address], [place], [address], 11/15/2023 11:49:15 11/15/19 24 11/15/2023 urina lysis panel , auto Unknown Analyte Negati ve Not Available [facility] [address] [facility] [address], [place], [address], 11/15/2023 11:49:15 07/01/19 18 06/29/2017 US, retro perit oneum , limit ed No observ ation record ed. [facility] [address] [facility] [address], [place], [address], 07/13/2017 06:38:55 07/09/19 18 07/07/2017 CT, abdom en, w/wo contr ast No observ ation record ed. [facility] [address], [place], [address], 07/13/2017 06:38:54 02/09/20 18 02/08/2018 US, retro perit oneum , limit ed [facility] [address] [facility] [place] [address] Patien t Name: SOFIA toney : 943 Patikamran t 4 Orderi ng [facility] er: SHIRLEY MERA JR EXAM DATE: 2017 [...] Johnnie Hawkins MD on 2017 4:05 PM [facility] [address] [place] [address], [place], [address], 02/22/2018 19:58:21 04/07/19 24 02/09/2023 US, renal No observ ation record ed. [facility] Not Available 2023 13:32:35 05/12/19 24 05/12/2023 CT, abdom en + pelvi s, w/wo contr ast [place] [facility] [address] [facility] [place] [place] [address] Patien t Name: SOFIA toney : 943 Patikamran toney 4 Orderi ng Provid er: SHIRLEY MARTINEZ [facility] EXAM DATE: 2023 EXAM: CT ABD/PE LVIS [...] 350 (1 x 100 mL bottle of [facility] 12988- 1414-9 1). 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 Fascia l defect measur [...] Hawkins MD on 024 2:41 PM michelle [facility] [address], [place], [address], 05/14/2023 16:38:38 11/30/19 24 11/30/2023 US, retro perit oneum , limit ed No observ ation record ed. [email or web address] [facility] (Med Record) [address], [place], [address], 12/01/2023 09:40:10 06/08/19 25 06/06/2024 US, retro perit oneum , limit ed No observ ation record ed. [email or web address] Not Available 05/30 18:13:29 Result Notes Documentation Provider Name and Address Organization Details Recorded Time Ct, Abdomen + Pelvis, W/wo Contrast : [facility] [address] [place] [address] Patient Name: SOFIA BARLOW Patient : 1940 [...] 350 (1 x 100 mL bottle of [facility] [address]-57). 0 was wasted and discarded. 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 Procedures Surgical History Date Name Laterality Status Provider Name and Address Organization Details Recorded Time Cystoscopy - female completed SHIRLEY PARR JR, MD [address] [place] [address], [address], [facility] 05/12/2023 13:33:18 repair of shoulder completed [facility] 03/31/2023 10:33:39 maintenance of gastric band completed [facility] 03/31/2023 10:34:53 operative procedure on knee completed [facility] 03/31/2023 10:37:07 Imaging Results None recorded. Procedure Notes None recorded. Medical Equipment None Reported. Allergies Allergen ID Allergen Name Allergen Category Reaction Reaction Severity Criticality Documentation Date Start Date Code Code System Note Provider Name and Address Organization Details Recorded Time 18680930 Product containin g penicilli n (product) medicatio n Not available Not available Not available 01/23/20162012 86019 8001 SNOMED Comme nt: Creat ed By: Dayna Escudero ;Crea avery Date: 2012 10:39 :32 AM; Not Available [facility] 6 11:56:53 247073 etodolac medicatio n Not available Not available Not available 01/23/20162012 93830 RxNorm Comme nt: Creat ed By: Dayna Escudero ;Crea avery Date: 2012 10:40 :22 AM; Not Available [facility] 6 11:56:53 444956 Bextra medicatio n Not available Not available Not available 01/23/20162012 49549 0 RxNorm Comme nt: Creat ed By: Dayna Escudero ;Crea avery Date: 2012 10:40 :41 AM; Not Available [facility] 6 11:56:53 545667 Aleve medicatio n Not available Not available Not available 01/23/20162012 30946 1 RxNorm Comme nt: Creat ed By: Dayna Escudero ;Meira avery Date: 2012 10:40 :02 AM; Not Available [facility] 6 11:56:53 170065 Substance with sulfonami de structure and antibacte rial mechanism of action (substanc e) medicatio n Not available Not available Not available 01/23/20162012 70348 8003 SNOMED Comme nt: Creat ed By: Dayna Escudero ;Crea avery Date: 2012 10:41 :00 AM; Not Available [facility] 6 11:56:53 Medications Name Sig Start Date [...] Available Not Available Nasonex 50 mcg/actuati on [place] Daily active Instructio ns: each nostril;Fr equency: [...] Updated DateTime 03/31/2023 149.86 cm 40.4 kg/m2 76503.47 g Adriana Looney [facility] 03/31/2023 10:29:44 Date Recorded Body height Body mass index (BMI) Body weight Heart rate Systolic And Diastolic Provider Name and Address Organization Details Last Updated DateTime 07/12/2017 149.86 cm 40.6 kg/m2 89617.07 g 80 /min 136/83 mm[Hg] Nasima Hillman [facility] 07/12/2017 09:03:19 Date Recorded Body height Body mass index (BMI) Body weight Provider Name and Address Organization Details Last Updated DateTime 11/15/2023 149.86 cm 40.4 kg/m2 28494.47 g Adriana Looney [facility] 11/15/2023 11:37:28 Date Recorded Body height Body mass index (BMI) Body weight Heart rate Systolic And Diastolic Provider Name and Address Organization Details Last Updated DateTime 02/14/2018 149.86 cm 42.4 kg/m2 54903.4 g 92 /min 124/75 mm[Hg] Tika Toney [facility] 02/14/2018 12:18:54 Social History Question Answer Notes LastModified by Organizat ion Details LastModified Time Tobacco Smoking Status Never Smoker Tika Toney [facility] 06/24/2017 11:30:13 Marital Status Informatio n not available 06/24/2017 What Was The Date Of Your Most Recent Tobacco Screening? 11/15/2023 [email or web address] Information not available 11/15/2023 Sex: Unknown Functional Status Question Answer Note LastModified by Organization D etails LastModified Time What is your level of alcohol consumption? None [email or web address] Information not available 06/24/2017 Mental Status None recorded. Family History Relationship Description Onset Age of this Age Resolved Age Notes LastModified by Organization Details LastModified Time Father Family history of malignant neoplasm [email or web address] Not available 06/24 11:30:09 Medical History Condition Response Arthritis Y Acid Reflux (GERD) Y High Cholesterol Y Allergies/Hayfever Y Anemia Y Asthma Y Sleep Apnea Y Thyroid Disorder Y Hypertension Y Gynecological HistoryNo gynecological history recorded. Obstetrics History GPAL:G 0 P 0 0 0 0 Past Encounters Encounter ID Performer Location Encounter Start Date Encounter Closed Date Diagnosis/Indication Diagnosis SNOMED-CT Code Diagnosis ICD10 Code Diagnosis IMO Codes Diagnosis Note [id number] SHIRLEY PARR JR, MD [facility] [address] [place] [address] 06/24/2017 10:49:15 06/24/2017 13:02:56 Cyst of kidney 493460399 N28.1 [id number] SHIRLEY PARR JR, MD [facility] [address] [place] [address] 07/12/2017 08:33:35 07/12/2017 11:53:10 Acquired renal cystic disease 671772160 N28.1 [id number] SHIRLEY PARR JR, MD [facility] [address] [place] [address] 02/14/2018 11:08:51 02/14/2018 12:25:49 Acquired renal cystic disease 114173053 N28.1 [id number] SHIRLEY PARR JR, MD [address] [place] [address] 03/31/2023 09:48:35 04/01/2023 05:23:51 Earnest hematuria 324246964 R31.0 Acquired r enal cystic disease 009334730 N28.1 [id number] SHIRLEY PARR JR, MD SURGERY SCHEDULE [address] [place] [address] 05/12/2023 12:06:17 05/12/2023 12:07:10 Earnest hematuria 119035271 R31.0 Acquired r enal cystic disease 706147717 N28.1 [id number] SHIRLEY PARR JR, MD [facility] [address] [place] [address] 11/15/2023 11:10:42 11/15/2023 12:19:04 Acquired renal cystic disease 940889829 N28.1 Health Concerns Section Related Observation LastModified by Organization Detai ls LastModified Time None Recorded Concern Status LastModified by Organization Details LastModified Time None Recorded Advance Directives Directive None Recorded Payers Insurance Date Sequence Insurance Name Policy Number Policy Lucero Covered Member ID Lucero Member ID Guarantor Name 06/30/2024 1 [facility] (MEDICARE REPLACEMENT/A DVANTAGE - PPO) [id number] Sofia Barlow [id number] Sofia Barlow Notes Date Note Type Note Provider Name and Address Organization Details Recorded Time 07/12/2017 text/html patient is in today for follow-up of renal cysts/renal mass. She [...] care physician. MD Praveen [place], [address], [facility] 07/13/2017 06:39:02 02/14/2018 text/html patient is in today for follow-up of renal cysts/renal mass. She brings a copy of her CT scan and for review. 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 renal mass protocol CT scan was performed July 07, 2017. Renal US 02/08/2018 shows stable simple cysts, right kidney. SHIRLEY PARR JR, MD [facility] [place], [address], [facility] 02/22/2018 20:01:55 03/31/2023 text/html patient is in today for follow-up of renal cysts/renal mass. She [...] denies occupational exposures. SHIRLEY PARR JR, MD [facility] [place], [address], [facility] 03/31/2023 18:16:51 05/12/2023 text/html patient is in today for follow-up of renal cysts/renal mass. She [...] denies occupational exposures. MD Praveen [place], [address], [facility] 05/12/2023 13:37:46 11/15/2023 text/html patient is in today for follow-up of renal cysts/renal mass. She [...] CT scan imaging showed simple renal cysts. MD Praveen [place], [address], [facility] 11/24/2023 08:06:03 OBGyn Episode No OBEpisode recorded.
--- OUTSIDE RECORDS SUMMARY | 2024-12-21 10:14 | XMS_ITS | Encounter Summary ---
Author Organization [employer] ([place], [place], [place], [place]) Address [address] [place] [address] Care Team Providers Care Police Investigator Name Role Phone Unavailable Primary Care Provider Unavailabl e Encounter Details Date Type Department Care Team (Late st Contact Info) Description 07/13/2019 Transcribed Document [facility] Family Medicine [facility] [address] ProviderMariela MD [address] [place] [address] Social History Tobacco Use Types Packs/Day Years [...]
--- OUTSIDE RECORDS SUMMARY | 2024-12-21 10:14 | XMS_ITS | Encounter Summary ---
Author Organization [employer] ([place], [place], [place]) Address [address] [place] [address] Care Team Providers Care Operations Professional Name Role Phone Unavailable Primary Care Provider Unavailabl e Encounter Details Date Type Department Care Team (Late st Contact Info) Description 08/22/2018 Transcribed Document [facility] [place] Counts [facility] 234 beds at [facility] [place] [address] ProviderMariela MD [address] [place] [address] Social History Tobacco Use Types Packs/Day [...] EDIN DRAKE OTR/Bartolo - 08/22/2018 13:33 EDT Contact Center Engineer Goals, OT Other LTG Grid Goal #1 [...]
--- OUTSIDE RECORDS SUMMARY | 2024-12-21 10:14 | XMS_ITS | Encounter Summary ---
Author Organization [employer] ([place], [place], [place], [place]) Address [address] [place] [address] Care Team Providers Care Software Support Specialist Name Role Phone Unavailable Primary Care Provider Unavailabl e Encounter Details Date Type Department Care Team (Late st Contact Info) Description 06/29/2019 Transcribed Document [facility] Family Medicine [address] [place] [address] ProviderMariela MD [address] [place], [place] [id number] Social History Tobacco Use Types Packs/Day Years [...]
--- OUTSIDE RECORDS SUMMARY | 2024-12-21 10:14 | XMS_ITS | Encounter Summary ---
Author Organization [employer] ([place]) Address [address] [place] [address] Care Team Providers Care Stamp Redemption Clerk Name Role Phone Unavailable Primary Care Provider Unavailabl e Encounter Details Date Type Department Care Team (Late st Contact Info) Description 08/22/[address] [facility] Family Medicine [facility] [place] [address] ProviderMariela MD [facility] [place], [place] [phone] Social History Tobacco Use Types Packs/Day Years [...] Mariela ProviderMD - 08/22/2018 9:14 AM CDT [facility] Main OR PACU Summary Primary Physician: NIMO EPPS MD-ORT Finalized Date/Time: 08/22/18 12:13:23 Pt. Name: SOFIA GILL Eufemia Bal/Sex: 1940 Female Med Rec #: [id number] Physician: NIMO EPPS MD-ORT Financial #: [id number] Pt. Type: O Room/Bed: Admit/Disch: 08/22/18 04:51:00 - Institution: [facility] OR PACU Case Times Entry 1 In PACU I 08/22/18 11:07:00 Ready for PACU 08/22/18 12:00:00 Discharge Discharge from PACU 08/22/18 12:15:00 I Last Modified By: Layla Rapp RN 08/22/18 12:13:07 [facility] Main OR PACU Case Times Audit 08/22/18 12:13:07 Shop Tailor: [email or web address] Modifier: [email or web address] 1 <*> Ready for PACU Discharge 08/22/18 12:12:00 1 <*> Discharge from PACU I 08/22/18 12:12:00 08/22/18 12:12:55 Shop Tailor: [email or web address] Modifier: [email or web address] <+> 1 Ready for [...]
--- OUTSIDE RECORDS SUMMARY | 2024-12-21 10:14 | XMS_ITS | Encounter Summary ---
Author Organization [employer] ([place], [place], [place], [place]) Address [address] [place] [address] Care Team Providers Care Crew Manager Name Role Phone Unavailable Primary Care Provider Unavailabl e Encounter Details Date Type Department Care Team (Late st Contact Info) Description 08/22/2018 Transcribed Document [facility] Family Medicine [facility] [place] [address] ProviderMariela MD [address] [place] [address] Social History Tobacco Use Types Packs/Day [...] form. Electronically signed by Maureen Cornejo Conversion Pipe Fitter Supervisor Maintenance Cerner at 06/16/2022 8:12 PM CDT documented in this encounter Plan of Treatment Not on file documented as of this encounter Visit Diagnoses Not on filedocumented in this encounter
--- OUTSIDE RECORDS SUMMARY | 2024-12-21 10:14 | XMS_ITS | Encounter Summary ---
Author Organization [employer] ([place], [place], [place], [place]) Address [address] [place] [address] Care Team Providers Care Boat Builder And Repairer Name Role Phone Unavailable Primary Care Provider Unavailabl e Encounter Details Date Type Department Care Team (Late st Contact Info) Description 06/18/2019 Transcribed Document [facility] [place] [facility] [place] [address] ProviderMariela MD [address] [place] [address] Social History Tobacco Use Types Packs/Day Years [...]
--- OUTSIDE RECORDS SUMMARY | 2024-12-21 10:14 | XMS_ITS | Encounter Summary ---
Author Organization [employer] ([place], [place], [place], [place]) Address [address] [place] [address] Care Team Providers Care Minister Helper Name Role Phone Unavailable Primary Care Provider Unavailabl e Encounter Details Date Type Department Care Team (Late st Contact Info) Description 07/13/2019 Transcribed Document [facility] Radiology [address] [place] [address] Shawanda Barahona MD [address] [id number] Social History Tobacco Use Types Packs/Day Years [...] (JULY 06) L 2.9 (JULY 05) Micro: [facility]: 06/15 [facility] Blood [...]
--- OUTSIDE RECORDS SUMMARY | 2024-12-21 10:14 | XMS_ITS | Clinical Summary ---
Author Organization [facility] Address [address] [place] [address] Care Team Providers Care Cloth Printing Utility Worker Name Role Phone Gracia Cleaning Dr Primary [...] and in the evening. Active HYDROcodone-morena taminophen ([place]) 7.5-325 MG tablet Take 1 tablet by [...] 50 MCG (1999 UT) capsule 50 mcg. 10/09/2024 Active Misc Natural Products (TURMERIC, CURCUMIN, PO) Take 3 tablets by mouth in the morning. Active diclofenac-miSO PROStol (Arthrotec) 75-0.2 MG EC tablet Two times a day Active Coenzyme Q10 (Q-SORB) 100 MG capsule 100 mg. 10/09/2024 Active Active Problems Problem Noted Date Diagnosed [...] - [facility] [address] [address] Pina Granados, PEDIATRIC HOSPITALIST Follow-up arranged (Primary Dx); Severe aortic valve stenosis 11/15/2024 Travel 11/13/2024 11:00 AM EDT [facility] [address] 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 [address] [facility] [address] [place] [address] Deepa Lama MD Aortic valve stenosis (Primary Dx); Shortness of breath 09/25/2024 Telephone [facility] - [facility]ovascular Medicine [address] [facility] [address] [place] [address] Deepa Lama MD 09/25/2024 Travel from Last 3 Months Social History Tobacco [...] Visit [facility] [address] [facility] [address] [place] [address] Deepa Lama MD [address] [place] [address] [address] [place] [address] Health Maintenance Due Date Last [...] 10/13/2024 7:22 AM EDT us Pina Granados PEDIATRIC HOSPITALIST CV ECHO PROCEDURES Final Re sult * [...] Ultrasound 10/10/2024 7:29 AM EDT us Deepa Lama MD CV ECHO PROCEDURES Final Result from Last 3 Months Insurance [facility] MEDICARE ADVANTAGE Care Teams Cloth Printing Utility Worker Relationship Specialty Start Date End Date Gracia Cleaning Dr. PCP - General 09/18/24
--- OUTSIDE RECORDS SUMMARY | 2024-12-21 10:14 | XMS_ITS | Encounter Summary ---
Author Organization [employer] ([place], [place], [place], [place]) Address [address] [place] [address] Care Team Providers Care Draw Off Worker Name Role Phone Unavailable Primary Care Provider Unavailabl e Encounter Details Date Type Department Care Team (Late st Contact Info) Description 08/22/2018 Transcribed Document [facility] [place] Family Medicine [facility] [place] [address] ProviderMariela MD [address] [place] [address] Social History Tobacco Use Types Packs/Day [...] Source : Stated Height Entry Format : [place] Height, Feet : 4 ft(Converted to: 122 cm, 48 Inch) Height, Inches : 11.5 Inch(Converted to: 0 ft 12 Inch, 29.21 cm) Clinical Height : 151.13 cm Weight Source : Standing scale Weight Entry Format : [place] Clinical Dosing Weight : 97.73 kg Weight, Pounds : 215 lb Body Surface Area (BSA) : 1.91 m2 Body Mass Index : 42.8 kg/m2 (>HHI) [place] Body Weight : 44 kg THIERRY GOODRICH [...] EDT Legal Guardian : Son Support Person/Patient Filterer : Yes Support Person/Pt Rep Name : Sam Dan Barrera Yen Support Person/Pt Rep Contact Information : son Vipul) [phone] (Nancy Rust [phone] Want Family/Rep/Phys Notified of Admit : No [...] Level : 46 or > High Risk [place] Fall Interventions : Adequate lighting, Assistive devices [...] commands Nazia Best Verbal Response : Oriented [place] Eye Opening Response : Spontaneous Nazia Coma Score : 15 THIERRY GOODRICH RN - 08/22/2018 7:49 EDT documented in this encounter Plan of Treatment Not on file documented as of this encounter Visit Diagnoses Not on filedocumented in this encounter
--- OUTSIDE RECORDS SUMMARY | 2024-12-21 10:14 | XMS_ITS | Encounter Summary ---
Author Organization [employer] ([place], [place], [place], [place]) Address [address] [place] [address] Care Team Providers Care Facility Designer Name Role Phone Unavailable Primary Care Provider Unavailabl e Encounter Details Date Type Department Care Team (Late st Contact Info) Description 08/22/2018 Transcribed Document [facility] [place] [facility] [place] [address] ProviderMariela MD [place] [address] Social History Tobacco Use Types [...] Eufemia Bal/Sex: 1940 Female Med Rec #: [id number] Physician: NIMO EPPS MD-ORT Financial #: [id number] Pt. Type: I Room/Bed: 504/1 Admit/Disch: 08/22/18 07:12:00 - Institution: [facility] PreOp Case Times Entry 1 In Preop 08/22/18 06:15:00 Ready for Holding n/a Room Patient Ready for 08/22/18 08:05:00 Surgery Patient Out of Preop 08/22/18 08:37:00 Patient Out of n/a Holding Room Last Modified By: THIERRY GOODRICH RN 08/24/18 10:27:08 [facility] PreOp Case Times Audit 08/24/18 10:27:08 Sales Engagement Executive: HORACIO Modifier: HORACIO <+> 1 Patient Out of Preop Finalized By: THIERRY GOODRICH, RN Document Signatures Signed By: THIERRY GOODRICH RN 08/24/18 10:27 Electronically signed by Nikunj Cornejo Conversion Forensic Identification Specialist Cerner at 06/16/2022 8:17 PM CDT documented in this encounter Plan of Treatment Not on file documented as of this encounter Visit Diagnoses Not on filedocumented in this encounter
--- OUTSIDE RECORDS SUMMARY | 2024-12-21 10:14 | XMS_ITS | Encounter Summary ---
Author Organization [employer] ([place], [place], [place], [place]) Address [address] [place] [address] Care Team Providers Care Metal Template Maker Name Role Phone Unavailable Primary Care Provider Unavailabl e Encounter Details Date Type Department Care Team (Late st Contact Info) Description 06/17/2019 Transcribed Document [facility] [place] [facility] [place] [address] ProviderMariela MD [address] [place], [place] [id number] Social History Tobacco Use Types Packs/Day Years [...] Numbers : Insurance 1 Health Plan: [facility] MEDICARE ADVANTAGE Policy Number: [id number] Authorization Number: Insurance Primary Name : [facility] MEDICARE ADVANTAGE Policy Number: [id number] Authorization Status-Primary : Pending clinicals Authorized Service Begin Date-Primary : 06/16/2019 EDT Authorization Comments-Primary : Attempted auth on [facility] portal, message that notification cannot be completed online, Call number on back of card Historical Authorization Comments-Primary : No Authorization Comments Found Michelle Jimenez Rn-Utilization Review - 06/17/2019 10:02 EDT documented in this encounter Plan of Treatment Not on file documented as of this encounter Visit Diagnoses Not on filedocumented in this encounter
--- OUTSIDE RECORDS SUMMARY | 2024-12-21 10:14 | XMS_ITS | Encounter Summary ---
Author Organization [employer] ([place], [place], [place], [place]) Address [address] [place] [address] Care Team Providers Care Hub Cutter Name Role Phone Unavailable Primary Care Provider Unavailabl e Encounter Details Date Type Department Care Team (Late st Contact Info) Description 06/29/2019 Transcribed Document [facility] [place] Medicine Formerly [facility] [place] [address] ProviderMariela MD [address] [place], [place] [id number] Social History Tobacco Use Types Packs/Day Years [...] : Yoanna Araujo 06/29/2019829 received fax from [facility] with approval for extended ltac coverage with next clinical review due on 07/12/2019. Auth#[id number]. Will continue to follow for anticipated discharge needs. Care Management Note Report : YOANNA ARAUJO RN - 06/28/19 08:35:06 Yoanna Araujo 06/28/2019 0830 Faxed clinical review to [facility] at to request approval for extended Ltac services. Auth#[id number]. Pending Approval. Documentation Status Complete : Yes YOANNA ARAUJO RN - 06/29/2019 8:26 EDT documented in this encounter Plan of Treatment Not on file documented as of this encounter Visit Diagnoses Not on filedocumented in this encounter
--- OUTSIDE RECORDS SUMMARY | 2024-12-21 10:14 | XMS_ITS | Encounter Summary ---
Author Organization [employer] ([place], [place], [place], [place]) Address [address] [place] [address] Care Team Providers Care Ross Carrier Driver Name Role Phone Unavailable Primary Care Provider Unavailabl e Encounter Details Date Type Department Care Team (Late st Contact Info) Description 07/13/2019 Transcribed Document [facility] [place] [facility] [place] [address] ProviderMariela MD [address] [place] [address] Social History Tobacco Use Types Packs/Day [...] out referral for placement for patient to [facility] nursing and rehab, [facility], [facility] and triology facilities. Awaiting call backs. Care Management Note Report : СВЕТЛАНА WANG - 07/12/19 12:19:17 07/12/2019 Fax received from [facility] with approval for LTAC services with a request for updated discharge plans and clinical info to support needs if not discharged. Auth#[id number]. Clinical review or discharge summary to be faxed by 07/17/2019. YOANNA ARAUJO RN - 07/12/19 08:39:48 Yoanna Araujo 07/12/2019 0830 - faxed clinical review the [facility] at [phone] to request approval for extended ltac services. Auth#[id number], awaiting approval. YOANNA ARAUJO RN - 06/29/19 [...] health and she has been to the [facility] and [facility] in the past. She has the following equipment at home: wheel chair, walker, cane and shower chair. Her discharge plan is to go to rehab prior to returning home. PCP: Flavia MARQUEZ [address] [place] [address] Senior Program Analyst: Dr. Shemar Barger [id number] Clemente Del Rio MD - Rheumatology - [address] [place] [address] Preferences: Home Health: [facility]: no preferences DME: [facility] - [address], [place] [address] [facility] preferences Will continue to monitor patient for anticipated discharge needs YOANNA ARAUJO RN - 06/29/19 08:30:20 Yoanna Araujo 06/29/2019 0830 received fax from [facility] with approval for extended ltac coverage with next clinical review due on 07/12/2019. Auth#[id number]. Will continue to follow for anticipated discharge needs. YOANNA ARAUJO RN - 06/28/19 08:35:06 Yoanna Araujo 06/28/2019 0830 Faxed clinical review to [facility] at to request approval for extended Ltac services. Auth#[id number]. Pending Approval. Documentation Status Complete : Yes YOANNA ARAUJO RN - 07/13/2019 11:02 EDT documented in this encounter Plan of Treatment Not on file documented as of this encounter Visit Diagnoses Not on filedocumented in this encounter
--- OUTSIDE RECORDS SUMMARY | 2024-12-21 10:14 | XMS_ITS | Encounter Summary ---
Author Organization [employer] ([place], [place], [place], [place]) Address [address] [place] [address] Care Team Providers Care Consulting Senior Practice Director Name Role Phone Unavailable Primary Care Provider Unavailabl e Encounter Details Date Type Department Care Team (Late st Contact Info) Description 06/28/2019 Transcribed Document [facility] [place] Family [facility] [place] [address] ProviderMariela MD [address] [place] [id number] Social History Tobacco Use Types Packs/Day Years [...] Mariela ProviderMD - 06/28/2019 2:39 PM CDT [facility] Inpatient Documentation Entered On: 06/28/2019 14:39 EDT [...] Ulcer WOCN Wound Pressure Ulcer Documentation : Xgoubexcg-Eeopkt-Emme Abnormality: Knee Left on 06/28/2019 14:37 by [...] inc dry with steri strips see photos Sinehivti-Opmsjk-Yzti Abnormality: Other: gluteal cleft on 06/27/2019 11:39 by TAN BRYANT RN I/W/A Type: Moisture associated skin damage (MASD) I/W/A Present on Admission to Hospital: Yes I/W/A Wound Bed Description: Full-thickness, Other: linear I/W/A Bed Color(s): Red WOCN Ostomy Documentation : No ostomy assessments reported. TAN BRYANT RN - 06/28/2019 14:39 EDT Electronically signed by Chantal [facility] Conversion Immunopathologist Cerner at 06/16/2022 8:18 PM CDT documented in this encounter Plan of Treatment Not on file documented as of this encounter Visit Diagnoses Not on filedocumented in this encounter
--- OUTSIDE RECORDS SUMMARY | 2024-12-21 10:14 | XMS_ITS | Encounter Summary ---
Author Organization [employer] ([place], [place], [place], [place]) Address [address] [place] [address] Care Team Providers Care Immigration Attorney Name Role Phone Unavailable Primary Care Provider Unavailabl e Encounter Details Date Type Department Care Team (Late st Contact Info) Description 06/17/2019 Transcribed Document [facility] [place] Family Medicine [facility] [place] [address] ProviderMariela MD [address] [place], [place] [id number] Social History Tobacco Use Types Packs/Day Years [...] 06/17/2019 10:06 EDT by Charleen Ortiz Social Worker-Physical Metallurgist Initial Assessment I Previously Documented Living Environment [...] Guardianship Needed : No Charleen Ortiz Social Worker-Physical Metallurgist - 06/17/2019 10:06 EDT Initial Assessment II [...] Acute Care Facility, Home with home health, group home facility Current Home Treatment/Equipment : Current Home [...] phone. Pt reports she resides alone at [address] [place] [address]. Pt reports she primarily uses a walker [...] here. Continue to follow.... Charleen Ortiz Social Worker-Physical Metallurgist - 06/17/2019 10:06 EDT documented in this encounter Plan of Treatment Not on file documented as of this encounter Visit Diagnoses Not on filedocumented in this encounter
--- OUTSIDE RECORDS SUMMARY | 2024-12-21 10:15 | XMS_ITS | Encounter Summary ---
Author Organization [employer] ([place], [place], [place], [place]) Address [address] [place] [address] Care Team Providers Care Machine Icer Name Role Phone Unavailable Primary Care Provider Unavailabl e Encounter Details Date Type Department Care Team (Late st Contact Info) Description 08/24/2020 Transcribed Document [facility] [place] Medicine [facility] [place] [address] ProviderMariela MD [facility] [place] [address] Social History Tobacco Use Types [...] form. Electronically signed by Maureen Cornejo Conversion Hydroelectric Component Machinist Cerner at 06/16/2022 8:30 PM CDT documented in this encounter Plan of Treatment Not on file documented as of this encounter Visit Diagnoses Not on filedocumented in this encounter
--- OUTSIDE RECORDS SUMMARY | 2024-12-21 10:15 | XMS_ITS | Encounter Summary ---
Author Organization [employer] ([place], [place], [place], [place]) Address [address] [place] [address] Care Team Providers Care Warper Fixer Name Role Phone Unavailable Primary Care Provider Unavailabl e Encounter Details Date Type Department Care Team (Late st Contact Info) Description 08/20/2020 Transcribed Document [facility] [place] Family Medicine Formerly [facility] [place] [address] ProviderMariela MD [address] [place] [address] Social History Tobacco Use Types Packs/Day [...] form. Electronically signed by Maureen Cornejo Conversion Exceptional Student Education Aide Cerner at 06/21/2022 2:04 PM CDT documented in this encounter Plan of Treatment Not on file documented as of this encounter Visit Diagnoses Not on filedocumented in this encounter
--- OUTSIDE RECORDS SUMMARY | 2024-12-21 10:15 | XMS_ITS | Encounter Summary ---
Author Organization [employer] ([place], [place], [place], [place]) Address [address] [place] [address] Care Team Providers Care Vasc Tech Name Role Phone Unavailable Primary Care Provider Unavailabl e Encounter Details Date Type Department Care Team (Late st Contact Info) Description 06/26/2019 Transcribed Document [facility] [place] [facility] [place] [address] ProviderMariela MD [facility] [place] [address] Social History Tobacco Use Types [...] On: 06/26/2019 14:56 EDT by DEBORAH CAMPOS RN-Customer Service Cashier Final Discharge Planning Discharge Arrangements : Patient [...] ANY DME AT DISCHARGE FROM [facility]..DEBORAH BENAVIDEZ, RN-Customer Service Cashier - 06/26/2019 14:56 EDT Final Narrative Note Final Narrative Note : NURSE AWARE OF D/C PLAN AND WILL CLAL REPORT TO [phone]..D/C SUMMARY COMPLETED..DEBORAH BENAVIDEZ RN-Customer Service Cashier - 06/26/2019 14:56 EDT documented in this encounter Plan of Treatment Not on file documented as of this encounter Visit Diagnoses Not on filedocumented in this encounter
--- OUTSIDE RECORDS SUMMARY | 2024-12-21 10:15 | XMS_ITS | Encounter Summary ---
Author Organization [employer] ([place], [place], [place], [place]) Address [address] [place] [address] Care Team Providers Care Cheesemaker Helper Name Role Phone Unavailable Primary Care Provider Unavailabl e Encounter Details Date Type Department Care Team (Late st Contact Info) Description 08/22/2018 Transcribed Document [facility] [place] Family Medicine [facility] [place] [address] ProviderMariela MD [address] [place] [address] Social History Tobacco Use Types Packs/Day [...] : 08/22/2018 07:12 Assisted by, OT : back office medical assistant (EXTRUSION DIE COORDINATOR) Personal Devices : Personal Devices No Devices Recorded Assistive Devices : Assistive Devices Wheelchair Precautions in Place : Fall prevention measures, high risk EDIN DRAKE OTR/Bartolo - 08/24/2018 12:50 EDT General Status Patient Received Status : Supine in bed, Other: polar care, scds Treatment Start Time : 08/24/2018 8:34 EDT Patient Left Status : Other: left seated with EXTRUSION DIE COORDINATOR in therapy gym RN/PCT Informed Comment : [...] EDIN DRAKE OTR/Bartolo - 08/24/2018 12:50 EDT [facility] Goals, OT Other LTG Grid Goal #1 [...]
--- OUTSIDE RECORDS SUMMARY | 2024-12-21 10:15 | XMS_ITS | Encounter Summary ---
Author Organization [employer] ([place], [place], [place], [place]) Address [address] [place] [address] Care Team Providers Care Care Director Rn Name Role Phone Unavailable Primary Care Provider Unavailabl e Encounter Details Date Type Department Care Team (Late st Contact Info) Description 07/10/2019 Transcribed Document [facility] Radiology [address] [place] [address] Shawanda Barahona MD [address] [id number] Social History Tobacco Use Types Packs/Day Years [...] (JULY 05) L 1.9 (JULY 03) Micro: [facility]: 06/15 [facility] Blood cultures positive for group B strep [...]
--- OUTSIDE RECORDS SUMMARY | 2024-12-21 10:15 | XMS_ITS | Encounter Summary ---
Author Organization [employer] ([place], [place], [place], [place]) Address [address] [place] [address] Care Team Providers Care Purse Seining Hand Name Role Phone Unavailable Primary Care Provider Unavailabl e Encounter Details Date Type Department Care Team (Late st Contact Info) Description 06/26/2019 Transcribed Document [facility] [place] [facility] [place] [address] ProviderMariela MD [facility] [place] [address] Social History Tobacco Use Types Packs/Day Years [...] DONNA DRIVER MD-INT - 06/26/2019 11:22 EDT documented in this encounter Plan of Treatment Not on file documented as of this encounter Visit Diagnoses Not on filedocumented in this encounter
--- OUTSIDE RECORDS SUMMARY | 2024-12-21 10:15 | XMS_ITS | Encounter Summary ---
Author Organization [employer] ([place], [place], [place], [place]) Address [address] [place] [address] Care Team Providers Care Drupal Php Developer Name Role Phone Unavailable Primary Care Provider Unavailabl e Encounter Details Date Type Department Care Team (Late st Contact Info) Description 08/24/2020 Transcribed Document [facility] [place] [facility] [place] [facility] [place] [address] ProviderMariela MD [facility] [place] [place] [address] Social History Tobacco Use Types [...]
--- OUTSIDE RECORDS SUMMARY | 2024-12-21 10:15 | XMS_ITS | Encounter Summary ---
Author Organization [employer] ([place], [place], [place], [place]) Address [address] [place] [address] Care Team Providers Care Ems Helicopter Pilot Name Role Phone Unavailable Primary Care Provider Unavailabl e Encounter Details Date Type Department Care Team (Late st Contact Info) Description 08/20/2020 Transcribed Document [facility] [place] [facility] [place] [address] ProviderMariela MD [facility] [place] [address] Social History Tobacco Use [...] RN Procedure Case Attendee Role 3 : lead sprinkler Case Attendee 3 : THIERRY GOODRICH, lead sprinkler Case Attendee Role 4 : Observer Procedure Case Attendee 4 : Bridget Jauregui RN ELDER, JEAN M, RN - 08/20/2020 15:22 EDT documented in this encounter Plan of Treatment Not on file documented as of this encounter Visit Diagnoses Not on filedocumented in this encounter
--- OUTSIDE RECORDS SUMMARY | 2024-12-21 10:15 | XMS_ITS | Encounter Summary ---
Author Organization [employer] ([place], [place], [place], [place]) Address [address] [place] [address] Care Team Providers Care Steward/Stewardess Chief Cargo Vessel Name Role Phone Unavailable Primary Care Provider Unavailabl e Encounter Details Date Type Department Care Team (Late st Contact Info) Description 08/20/2020 Transcribed Document [facility] [place] [facility] [place] [address] ProviderMariela MD [facility] [place] [address] Social History Tobacco Use Types [...] Main OR PreOp Summary Primary Physician: NIMO PEPS MD-ORT Finalized Date/Time: 08/21/20 09:12:03 Pt. Name: SOFIA GILL S /Sex: 1940 Female Med Rec #: [id number] Physician: NIMO EPPS MD-ORT Financial #: [id number] Pt. Type: I Room/Bed: 428/1 Admit/Disch: 08/20/20 04:48:00 - Institution: [facility] PreOp Case Times Entry 1 In Preop 08/20/20 11:20:00 Ready for Holding n/a Room Patient Ready for 08/20/20 12:30:00 Surgery Patient Out of Preop 08/21/20 15:27:00 Patient Out of n/a Holding Room Last Modified By: KASSI GAY RN 08/21/20 09:12:01 S[facility] PreOp Case Times Audit 08/21/20 09:12:01 Family Life Counselor: [email or web address] Modifier: [email or web address] <+> 1 Patient Out of Preop Finalized By: KASSI GAY, RN Document Signatures Signed By: KASSI GAY RN 08/21/20 09:12 documented in this encounter Plan of Treatment Not on file documented as of this encounter Visit Diagnoses Not on filedocumented in this encounter
--- OUTSIDE RECORDS SUMMARY | 2024-12-21 10:15 | XMS_ITS | Encounter Summary ---
Author Organization [employer] ([place], [place], [place], [place]) Address [address] [place] [address] Care Team Providers Care Career Resource Specialist Name Role Phone Unavailable Primary Care Provider Unavailabl e Encounter Details Date Type Department Care Team (Late st Contact Info) Description 08/20/2020 Transcribed Document [facility] [place] [facility] [place] [address] ProviderMariela MD [facility] [place] [address] Social History Tobacco Use Types [...] S /Sex: 1940 Female Med Rec #: [id number] Physician: NIMO EPPS MD-ORT Financial #: [id number] Pt. Type: I Room/Bed: [facility]/ Admit/Disch: 08/20/20 04:48:00 - Institution: [facility] IntraOp Case Attendance Entry 1 Entry 2 Entry 3 Case Attendee NIMO EPPS Moore, Kelly E, RN Zamora, Radha, Scrub MD-ORT Tech Role Performed Surgeon/Proceduralist, Bead Supervisor, First Scrub, First First Time In [...] OMAR JIMENEZ, ESTEBAN Role Performed Vendor Vendor Home Appraiser, First Time In 08/20/20 15:29:00 08/20/20 15:29:00 [...] KELLY, CRNA Role Performed Scrub, Second Physician assistant public defender CONTINUOUS STILL OPERATOR/Nurse Assistant Dean Time In 08/20/20 15:29:00 08/20/20 15:29:00 08/20/20 [...] APRN, MARX, CONNIE, EDDIE OTHER, ATTENDEE #5 CONTINUOUS STILL OPERATOR-ANS Role Performed CONTINUOUS STILL OPERATOR/Nurse Assistant Dean Bead Supervisor, First Vendor Time In 08/20/20 17:39:00 [...] [facility]JE IntraOp Case Attendance Audit 08/20/20 20:29:47 Contour Band Saw Operator Vertical: LILLIANO Modifier: MARXCO 1 <+> Time Out [...] Joint Revision, Patella Tendon Repair 08/20/20 19:27:35 Contour Band Saw Operator Vertical: SUNDAYLLER Modifier: MARXCO 1 <*> Procedure Knee [...] Joint Revision, Patella Tendon Repair 08/20/20 18:09:39 Contour Band Saw Operator Vertical: ELAÍS Modifier: DAVIDER 2 <+> Time Out 2 [...] Procedure <+> 13 Other Attendee 08/20/20 17:40:02 Contour Band Saw Operator Vertical: ELÍAS Modifier: SUNDAYLLER 9 <+> Time Out 9 <*> Procedure Knee Total Joint Revision, Patella Tendon Repair <+> 10 Case Attendee <+> 10 Role Performed <+> 10 Time In <+> 10 Procedure <+> 10 Other Attendee 08/20/20 17:16:38 Contour Band Saw Operator Vertical: SUNDAYLLER Modifier: KEMILLER 1 <*> Procedure Knee [...] Procedure Knee Total Joint Revision 08/20/20 17:16:26 Contour Band Saw Operator Vertical: RHETTMILLER Modifier: KEMILLER 1 <*> Procedure Patella [...] Fixation, Knee Total Joint Revision 08/20/20 16:36:51 Contour Band Saw Operator Vertical: RHETTMILLER Modifier: KEMILLER <+> 1 Procedure <+> 3 Procedure 5 <*> Role Performed Journeyman Level Acoustic Analyst, Ancillary 5 <*> Procedure Patella Open Reduction Internal Fixation, Knee Total Joint Revision 5 <*> Other Attendee MATEO ANNDAGOBERTO 9 <*> Case Attendee SERENITY RODRÍGUEZ, ASSURANCE SENIOR MANAGER, CONTINUOUS STILL OPERATOR-ANS 9 <*> Procedure Patella Open Reduction Internal Fixation 08/20/20 16:30:48 Contour Band Saw Operator Vertical: SUNDAYLLER Modifier: KEMILLER 2 <*> Case Attendee OZZIE ALTAMIRANO, RN 2 <*> Procedure Patella Open Reduction Internal Fixation, Knee Total Joint Revision 08/20/20 16:13:35 Contour Band Saw Operator Vertical: DEE Modifier: KEMILLER <+> 1 Time In [...] Patella Open Reduction Internal Fixation 08/20/20 14:42:56 Contour Band Saw Operator Vertical: DEE Modifier: DEE 1 <*> Case Attendee NIMO EPPS, -ORT 1 <*> Role Performed Surgeon/Proceduralist, First 2 <*> Case Attendee OZZIE ALTAMIRANO, RN 2 <*> Role Performed Bead Supervisor, First 2 <*> Procedure Patella Open Reduction Internal Fixation, Knee Total Joint Revision 3 <*> Case Attendee Radha Zamora, Supervisor Steel Division 3 <*> Role Performed Scrub, First 4 <*> Case Attendee OTHER, ATTENDEE #1 4 <*> Role Performed Vendor 4 <*> Procedure Patella Open Reduction Internal Fixation, Knee Total Joint Revision 4 <*> Other Attendee KRISTEN CLEARY 5 <*> Case Attendee OTHER, ATTENDEE #2 5 <*> Role Performed Journeyman Level Acoustic Analyst, Ancillary 5 <*> Procedure Patella Open Reduction Internal Fixation, Knee Total Joint Revision 5 <*> Other Attendee MATEO MUNSON 6 <*> Case Attendee OMAR JIMENEZ CSA 6 <*> Role Performed Home Appraiser, First 6 <*> Procedure Patella Open Reduction Internal Fixation, Knee Total Joint Revision Entry 7 was deleted. Higher numbered entries shifted one position to fill the gap. <-> 7 Case Attendee JOSE AQUINO CRNA <-> 7 Role Performed CONTINUOUS STILL OPERATOR/Nurse Assistant Dean <-> 7 Procedure Patella Open Reduction Internal Fixation, Knee Total Joint Revision 8 <*> Case Attendee YUNIOR DUBOSE 8 <*> Role Performed Scrub, Second 8 <*> Procedure Patella Open Reduction Internal Fixation, Knee Total Joint Revision 08/20/20 14:41:02 Contour Band Saw Operator Vertical: DEE Modifier: DEE <+> 8 Case Attendee <+> 8 Role Performed <+> 8 Procedure <+> 9 Case Attendee <+> 9 Role Performed <+> 9 Procedure 08/20/20 14:23:34 Contour Band Saw Operator Vertical: DEE Modifier: LEINSU <+> 7 Case Attendee <+> 7 Role Performed <+> 7 Procedure 08/20/20 14:03:40 Contour Band Saw Operator Vertical: JEFFERYNSU Modifier: LEINSU <+> 6 Case Attendee [...] SJE IntraOp Case Times Audit 08/20/20 20:29:45 Contour Band Saw Operator Vertical: RHETTMILLER Modifier: MARXCO <+> 1 Out Room [...] 16:49:26 SJE IntraOp Cautery Audit 08/20/20 16:49:26 Contour Band Saw Operator Vertical: RHETTMILLER Modifier: KEMILLER 1 <*> Grounding Pad Site Left Lower Abdomen 1 <*> Grounding Pad Applied By Radha Zamora Supervisor Steel Division 08/20/20 16:18:19 Contour Band Saw Operator Vertical: MICHAELU Modifier: KEMILLER 1 <*> Grounding Pad Applied By OZZIE ALTAMIRANO RN S[facility] IntraOp Communication Entry 1 Entry 2 Communication To Family/Significant other Family/Significant other Comment START UPDATE Communication By Pamela Macario RN Pamela Macario, RN Date and Time 08/20/20 16:08:00 08/20/20 17:37:00 Last Modified By: Pamela Macario RN Moore, Kelly E, EDDIE 08/20/20 16:50:37 08/20/20 17:48:49 SJE IntraOp Communication Audit 08/20/20 17:48:49 Contour Band Saw Operator Vertical: RHETTMILLER Modifier: KEMILLER <+> 2 Communication By <+> 2 Date and Time <+> 2 Communication To <+> 2 Comment 08/20/20 16:50:37 Contour Band Saw Operator Vertical: KEMILLER Modifier: KEMILLER 1 <*> Communication By Radha Zamora, Supervisor Steel Division 1 <+> Date and Time 1 <+> Comment 08/20/20 16:13:59 Contour Band Saw Operator Vertical: DEE Modifier: KEMILLER 1 <*> Communication By [...] SJE IntraOp Counts Verification Audit 08/20/20 19:08:54 Contour Band Saw Operator Vertical: ELÍAS Modifier: MARXCO <+> 2 Procedure <+> 2 Count Type <+> 2 Counts Verification Sequence <+> 2 Count Performed By (Scrub) <+> 2 Count Performed By (RN) 08/20/20 17:16:40 Contour Band Saw Operator Vertical: SUNDAYLLER Modifier: KEMILLER 1 <*> Procedure Knee Total Joint Revision 08/20/20 17:16:27 Contour Band Saw Operator Vertical: RHETTMILLER Modifier: KEMILLER 1 <*> Procedure Patella Open Reduction Internal Fixation, Knee Total Joint Revision 08/20/20 16:46:11 Contour Band Saw Operator Vertical: KEMILLER Modifier: KEMILLER 1 <*> Procedure Patella Open Reduction Internal Fixation, Knee Total Joint Revision 1 <*> Count Type Sponge, Sharps 1 <*> Count Results Intentional retention 1 <*> Count Performed By (RN) Radha Zamora Scrub Tech 08/20/20 16:13:50 Contour Band Saw Operator Vertical: DEE Modifier: KEMILLER 1 <*> Procedure Patella [...] SJE IntraOp Counts Final Audit 08/20/20 19:56:39 Contour Band Saw Operator Vertical: SUNDAYLLJOSETTE Modifier: MARXCO 1 <*> Procedure Knee Total Joint Revision, Patella Tendon Repair 1 <+> Count Performed By (Scrub) 1 <+> Count Performed By (RN) 08/20/20 17:16:41 Contour Band Saw Operator Vertical: ELÍAS Modifier: KEMILLER 1 <*> Procedure Knee Total Joint Revision 08/20/20 17:16:28 Contour Band Saw Operator Vertical: DEE Modifier: KEMILLER 1 <*> Procedure Patella Open Reduction Internal Fixation, Knee Total Joint Revision SJE IntraOp Cultures and Spec Summary Entry 1 Cultrures and Specimens Specimen Ordered: Yes Test(s) Routine/Path-Lab, Requested/Final Culture(s)/Microbiology, Disposition Frozen Section(s)/Path-Lab Last Modified By: Pamela Macario RN 08/20/20 16:46:57 SJE IntraOp Cultures and Spec Summary Audit 08/20/20 16:46:57 Contour Band Saw Operator Vertical: DEE Modifier: SUNDAYLLER 1 <*> Test(s) Requested/Final [...] IntraOp Dressing and Packing Audit 08/20/20 20:28:07 Contour Band Saw Operator Vertical: ELÍAS Modifier: JUSTINEXCO 1 <*> Supplemental Applications Cold pack, Limb immobilizer SJE IntraOp Fire Risk Assessment Entry 1 Fire Info Surgical Site or 0- No Incision Above the Xyphoid Open O2 Source 0- No (Mask or Cannula) Available Ignition 1- Yes (ESU, Laser, Light Source) Fire Risk 1 Assessment Score Fire Score Fire Risk Yes Assessment Complete Fire Risk Pamela Macario, rn internal medicine Verified By Fire Risk 08/20/20 15:29:00 Assessment Verified Date/Time Fire Risk High Risk Protocol Yes Implemented Standard Fire Yes Safety Precautions Followed Last Modified By: Pamela Macario RN 08/20/20 16:38:35 SJE IntraOp Fire Risk Assessment Audit 08/20/20 16:38:35 Contour Band Saw Operator Vertical: ELÍAS Modifier: ELÍAS 1 <*> Fire Risk Assessment Verified By Radha Zamora Scrub Tech 08/20/20 16:14:04 Contour Band Saw Operator Vertical: ELÍAS Modifier: ELÍAS 1 <*> Fire Risk Assessment Verified By OZZIE ALTAMIRANO, EDDIE Tita IntraOp General Case Alternative Energy Engineer 1 Case Information OR OR 05 [facility] Case Level 1 Room Verified Yes Wound Class I - Clean Specialty Orthopedic Anesthesia Type General ASA Class 3 Diagnosis Preop Diagnosis RIGHT KNEE PAIN S/P TOTAL JOINT Postop Same As Preop No Postop Diagnosis SEE MD POST OP NOTE Last Modified By: Pamela Macario RN 08/20/20 16:38:56 SJE IntraOp General Case Data Audit 08/20/20 16:38:56 Contour Band Saw Operator Vertical: DEE Modifier: KEMILLER <+> 1 Postop Same As Preop <+> 1 Preop Diagnosis <+> 1 Postop Diagnosis SJE IntraOp Implant Log Entry 1 Entry 2 Entry 3 Type Implant (Synthetic) Implant (Synthetic) Implant (Synthetic) Implant Log Implant Type Mesh Bone Cement Cochlear Tissue Implant Type Implant MESH HANG FLAT SHT CEMENT BONE COBALT HV IMP LEGION HK 11 Identification [id number] Description Implant Quantity 1 2 1 Implant Site RIGHT PATELLAR TENDON right knee right knee Implant Identification Model Number Implant Identification Serial Number Implant [id number] Identification Lot Number Implant Cr Bard:Jamar Franks Surg:[employer] Ovalle & Nephew:Ortho Identification Med:[place] Delicatessen Clerk Name: Implant [id number] Identification Catalog Number Implant Size Implant Has an Yes Yes Expiration Date Implant Expiration 07/26/24 11/22/20 05/27/29 Date Wasted Radioactive Material Time Implanted Tissue Implant Continue for Tissue Implant Documentation Tissue Identification Number Graft Prep Per Delicatessen Clerk Instructions: Tissue Preparation Method: Reconstitution Solution: Reconstitution Solution Lot Number Reconstitution Solution Expiration Date: Thawing Solution Thawing Solution Lot Number Thawing Solution Expiration Date Preparation Materials, Other Preparation Materials, Other Lot Number Preparation Materials, Other Expiration Date Tissue Prepared/Processed By Delicatessen Clerk Paperwork Completed Implant Type Comment Last Modified By: Pamela Macario RN MARX, CONNIE, RN MARX, CONNIE, RN 08/20/20 17:15:37 08/20/20 19:07:44 08/20/20 19:07:44 Entry 4 Entry 5 Entry 6 Type Implant (Synthetic) Implant (Synthetic) Implant (Synthetic) Implant Log Implant Type Hardware Hardware Hardware Tissue Implant Type Implant LGN HK GD MOTION 11MM STEM PRESSFIT LEGION tibial wedge Identification [id number] Description Implant Quantity 1 1 1 Implant Site right knee right knee right knee Implant [id number] Identification Model Number Implant Identification Serial Number Implant [id number] Identification Lot Number Implant Ovalle & Nephew:Ortho Ovalle & Nephew:Ortho ovalle&nephew Identification Delicatessen Clerk Name: Implant [id number] Identification Catalog Number Implant Size 5mm,size 3-4 Implant Has an Yes Yes Yes Expiration Date Implant Expiration 03/12/28 01/31/28 02/06/28 Date Wasted Radioactive Material Time Implanted Tissue Implant Continue for Tissue Implant Documentation Tissue Identification Number Graft Prep Per Delicatessen Clerk Instructions: Tissue Preparation Method: Reconstitution Solution: Reconstitution Solution Lot Number Reconstitution Solution Expiration Date: Thawing Solution Thawing Solution Lot Number Thawing Solution Expiration Date Preparation Materials, Other Preparation Materials, Other Lot Number Preparation Materials, Other Expiration Date Tissue Prepared/Processed By Delicatessen Clerk Paperwork Completed Implant Type Comment Last Modified By: LINDA SAVAGE RN MARX, CONNIE, RN MARX, CONNIE, RN 08/20/20 19:07:44 08/20/20 19:07:44 08/20/20 19:07:44 Entry 7 Entry 8 Entry 9 Type Implant (Synthetic) Implant (Synthetic) Implant (Synthetic) Implant Log Implant Type Hardware Grafts, non-biological Hardware Tissue Implant Type Implant BASEPLT TIB LEGN HK F tibial wedge TERRITORY ACCOUNT MANAGER OFFSET LEGION Identification [id number] [id number] Description Implant Quantity 1 1 1 Implant Site right knee right knee right knee Implant [id number] Identification Model Number Implant Identification Serial Number Implant [id number] Identification Lot Number Implant Ovalle & Nephew:Ortho Ovalle & Nephew:Ortho Identification Delicatessen Clerk Name: Implant [id number] Identification Catalog Number Implant Size 5mm, 3-4 Implant Has an Yes Yes Yes Expiration Date Implant Expiration 09/08/27 03/31/30 Date Wasted Radioactive Material Time Implanted Tissue Implant Continue for Tissue Implant Documentation Tissue Identification Number Graft Prep Per Delicatessen Clerk Instructions: Tissue Preparation Method: Reconstitution Solution: Reconstitution Solution Lot Number Reconstitution Solution Expiration Date: Thawing Solution Thawing Solution Lot Number Thawing Solution Expiration Date Preparation Materials, Other Preparation Materials, Other Lot Number Preparation Materials, Other Expiration Date Tissue Prepared/Processed By Delicatessen Clerk Paperwork Completed Implant Type Comment Last Modified By: LINDA SAVAGE, LINDA FRY, LINDA FRY RN 08/20/20 19:07:44 08/20/20 19:07:44 08/20/20 19:07:44 Entry 10 Entry 11 Entry 12 Type Implant (Synthetic) Implant (Synthetic) Implant (Synthetic) Implant Log Implant Type Hardware Hardware Hardware Tissue Implant Type Implant FEMORAL WEDGE DIS 5MM FEMORAL WEDGE DIS 5MM STEM PRESSFIT LEGION Identification [id number] [id number] --[id number] Description Implant Quantity 1 1 1 Implant Site right knee right knee right knee Implant Identification Model Number Implant Identification Serial Number Implant [id number] Identification Lot Number Implant Ovalle & Nephew:Ortho Ovalle & Nephew:Ortho Ovalle & Nephew:Ortho Identification Delicatessen Clerk Name: Implant [id number] Identification Catalog Number Implant Size Implant Has an Yes Yes Yes Expiration Date Implant Expiration 10/04/27 04/29/21 05/24/26 Date Wasted Radioactive Material Time Implanted Tissue Implant Continue for Tissue Implant Documentation Tissue Identification Number Graft Prep Per Delicatessen Clerk Instructions: Tissue Preparation Method: Reconstitution Solution: Reconstitution Solution Lot Number Reconstitution Solution Expiration Date: Thawing Solution Thawing Solution Lot Number Thawing Solution Expiration Date Preparation Materials, Other Preparation Materials, Other Lot Number Preparation Materials, Other Expiration Date Tissue Prepared/Processed By Delicatessen Clerk Paperwork Completed Implant Type Comment Last Modified By: LINDA SAVAGE, LINDA FRY RN MARX, CONNIE, RN 08/20/20 19:07:44 08/20/20 19:07:44 08/20/20 19:07:44 Entry 13 Entry 14 Type Implant (Synthetic) Implant (Synthetic) Implant Log Implant Type Hardware Hardware Tissue Implant Type Implant TERRITORY ACCOUNT MANAGER OFFSET LEGION ASSEMBLY FEM BARB LGN Identification [id number] Description Implant Quantity 1 1 Implant Site right knee right knee Implant Identification Model Number Implant Identification Serial Number Implant [id number] Identification Lot Number Implant Ovalle & Nephew:Ortho Ovalle & Nephew:Ortho Identification Delicatessen Clerk Name: Implant [id number] Identification Catalog Number Implant Size Implant Has an Yes Yes Expiration Date Implant Expiration 11/17/29 01/23/27 Date Wasted Radioactive Material Time Implanted Tissue Implant Continue for Tissue Implant Documentation Tissue Identification Number Graft Prep Per Delicatessen Clerk Instructions: Tissue Preparation Method: Reconstitution Solution: Reconstitution Solution Lot Number Reconstitution Solution Expiration Date: Thawing Solution Thawing Solution Lot Number Thawing Solution Expiration Date Preparation Materials, Other Preparation Materials, Other Lot Number Preparation Materials, Other Expiration Date Tissue Prepared/Processed By Delicatessen Clerk Paperwork Completed Implant Type Comment Last Modified By: LINDA SAVAGE, LINDA FRY RN 08/20/20 19:07:44 08/20/20 19:07:45 [facility] IntraOp Implant Log Audit 08/20/20 19:07:45 Contour Band Saw Operator Vertical: PATRICIA Modifier: MARXCO <+> 14 Implant Identification Lot Number <+> 14 Implant Identification Delicatessen Clerk Name: <+> 14 Implant Expiration Date <+> 14 Implant Site <+> 14 Implant Identification Catalog Number <+> 14 Implant Has an Expiration Date 08/20/20 19:07:44 Contour Band Saw Operator Vertical: ELÍAS Modifier: MARXCO <+> 2 Implant Identification Description <+> 2 Implant Identification Lot Number <+> 2 Implant Identification Delicatessen Clerk Name: <+> 2 Implant Expiration Date <+> 2 Implant Site <+> 2 Implant Quantity <+> 2 Implant Identification Catalog Number <+> 2 Implant Type <+> 2 Type <+> 3 Implant Identification Description <+> 3 Implant Identification Lot Number <+> 3 Implant Identification Delicatessen Clerk Name: <+> 3 Implant Expiration Date <+> 3 Implant Site <+> 3 Implant Quantity <+> 3 Implant Identification Catalog Number <+> 3 Implant Type <+> 3 Implant Has an Expiration Date <+> 3 Type <+> 4 Implant Identification Description <+> 4 Implant Identification Lot Number <+> 4 Implant Identification Delicatessen Clerk Name: <+> 4 Implant Expiration Date <+> 4 Implant Site <+> 4 Implant Quantity <+> 4 Implant Identification Catalog Number <+> 4 Implant Type <+> 4 Implant Has an Expiration Date <+> 4 Type <+> 5 Implant Identification Description <+> 5 Implant Identification Lot Number <+> 5 Implant Identification Delicatessen Clerk Name: <+> 5 Implant Expiration Date <+> 5 Implant Site <+> 5 Implant Quantity <+> 5 Implant Identification Catalog Number <+> 5 Implant Type <+> 5 Implant Has an Expiration Date <+> 5 Type <+> 6 Implant Identification Description <+> 6 Implant Identification Lot Number <+> 6 Implant Identification Delicatessen Clerk Name: <+> 6 Implant Size <+> 6 Implant Expiration Date <+> 6 Implant Site <+> 6 Implant Quantity <+> 6 Implant Type <+> 6 Implant Identification Model Number <+> 6 Implant Has an Expiration Date <+> 6 Type <+> 7 Implant Identification Description <+> 7 Implant Identification Lot Number <+> 7 Implant Identification Delicatessen Clerk Name: <+> 7 Implant Site <+> 7 [...] Identification Lot Number <+> 9 Implant Identification Delicatessen Clerk Name: <+> 9 Implant Expiration Date <+> 9 Implant Site <+> 9 Implant Quantity <+> 9 Implant Identification Catalog Number <+> 9 Implant Type <+> 9 Implant Has an Expiration Date <+> 9 Type <+> 10 Implant Identification Description <+> 10 Implant Identification Lot Number <+> 10 Implant Identification Delicatessen Clerk Name: <+> 10 Implant Expiration Date <+> 10 Implant Site <+> 10 Implant Quantity <+> 10 Implant Identification Catalog Number <+> 10 Implant Type <+> 10 Implant Has an Expiration Date <+> 10 Type <+> 11 Implant Identification Description <+> 11 Implant Identification Lot Number <+> 11 Implant Identification Delicatessen Clerk Name: <+> 11 Implant Expiration Date <+> 11 Implant Site <+> 11 Implant Quantity <+> 11 Implant Identification Catalog Number <+> 11 Implant Type <+> 11 Implant Has an Expiration Date <+> 11 Type <+> 12 Implant Identification Description <+> 12 Implant Identification Lot Number <+> 12 Implant Identification Delicatessen Clerk Name: <+> 12 Implant Expiration Date <+> 12 Implant Site <+> 12 Implant Quantity <+> 12 Implant Identification Catalog Number <+> 12 Implant Type <+> 12 Implant Has an Expiration Date <+> 12 Type <+> 13 Implant Identification Description <+> 13 Implant Identification Lot Number <+> 13 Implant Identification Delicatessen Clerk Name: <+> 13 Implant Expiration Date <+> [...] Sequential compression device, knee high Antiembolic Device [id number] ID Number Scopes Photo/Video Documentation Photo No Video No Last Modified By: OZZIE ALTAMIRANO RN 08/20/20 14:32:00 SJE IntraOp Medication Admin Entry 1 Entry 2 Entry 3 Medication/Irrigant TRANEXAMIC ACID vancomycin 1Gm vial - hydrogen peroxide 3% - 1000MG/10 ML [id number] Combo Med List Time Administered Route of [...] SJE IntraOp Patient Positioning Audit 08/20/20 17:16:40 Contour Band Saw Operator Vertical: ELÍAS Landa: ELÍAS 1 <*> Procedure Knee Total Joint Revision 08/20/20 17:16:27 Contour Band Saw Operator Vertical: ELÍAS Modifier: SUNDAYLLER 1 <*> Procedure Knee Total Joint Revision 08/20/20 16:18:28 Contour Band Saw Operator Vertical: DEE Modifier: ELÍAS 1 <*> Body Position [...] Allergies Yes Airway Electronically signed by Ch[facility] Conversion Business Services Assistant Cerner at 06/16/2022 8:11 PM CDT documented in this encounter Plan of Treatment Not on file documented as of this encounter Visit Diagnoses Not on filedocumented in this encounter
--- OUTSIDE RECORDS SUMMARY | 2024-12-21 10:15 | XMS_ITS | Encounter Summary ---
Author Organization [employer] ([place], [place], [place], [place]) Address [address] [place] [address] Care Team Providers Care Shrimp Peeler Name Role Phone Unavailable Primary Care Provider Unavailabl e Encounter Details Date Type Department Care Team (Late st Contact Info) Description 08/24/2020 Transcribed Document [facility] Family Medicine [facility] [place] [address] ProviderMariela MD [address] [place] [id number] Social History Tobacco Use Types Packs/Day [...]
--- OUTSIDE RECORDS SUMMARY | 2024-12-21 10:15 | XMS_ITS | Encounter Summary ---
Author Organization [employer] ([place], [place], [place], [place]) Address [address] [address] Care Team Providers Care Tree Deadener Name Role Phone Unavailable Primary Care Provider Unavailabl e Encounter Details Date Type Department Care Team (Late st Contact Info) Description 06/26/2019 Transcribed Document [facility] Family Medicine [facility] [place] [address] ProviderMariela MD [address] [place] [address] Social History Tobacco Use Types [...] of blood. Pt scheduled to DC from [facility] at 1700 on this date. Notification : Will attempt again as time permits. ROBERT HAIRSTON OTR/Bartolo - 06/26/2019 11:55 EDT Electronically signed by Maureen Cornejo [employer] Media Program Director Min at 06/16/2022 8:21 PM CDT documented in this encounter Plan of Treatment Not on file documented as of this encounter Visit Diagnoses Not on filedocumented in this encounter
--- OUTSIDE RECORDS SUMMARY | 2024-12-21 10:15 | XMS_ITS | Encounter Summary ---
Author Organization [employer] ([place], [place], [place], [place]) Address [address] [place] [address] Care Team Providers Care Compliance Manager Name Role Phone Unavailable Primary Care Provider Unavailabl e Encounter Details Date Type Department Care Team (Late st Contact Info) Description 07/11/2019 Transcribed Document [facility] [address] [place] [address] ProviderMariela MD [address] [place], [place] [id number] Social History Tobacco Use Types Packs/Day Years [...]
--- OUTSIDE RECORDS SUMMARY | 2024-12-21 10:15 | XMS_ITS | Encounter Summary ---
Author Organization [employer] ([place], [place], [place], [place]) Address [address] [place] [address] Care Team Providers Care Director Of Teacher Education Name Role Phone Unavailable Primary Care Provider Unavailabl e Encounter Details Date Type Department Care Team (Late st Contact Info) Description 06/26/2019 Transcribed Document [facility] [place] [facility] [place] [address] ProviderMariela MD [facility] [place], [place] [id number] Social History Tobacco Use Types Packs/Day Years [...] Sy Legal Guardian : No Support Person/Patient Commercial Relief Driver : Yes Support Person/Pt Rep Name : Sam Barlow Contact Password : Keily Support Person/Pt Rep Contact Information : son Vipul) [phone] (Nancy Rust [phone] Want Family/Rep/Phys Notified of Admit : No Emergency Contact #1 : Sam Barlow Emergency Contact #1 Emergency Contact #1 Relationship : Son Emergency Contact #2 : Sy Barlow Emergency Contact #2 Emergency Contact #2 Relationship : Son Primary Language : Taiwanese Preferred Communication Mode : Verbal Communication Barrier [...] Scale Risk Level : 25-45 Medium Risk [place] Fall Interventions : Adequate lighting, Assistive devices [...] Source : Chart Height Entry Format : [place] Height, Feet : 4 ft(Converted to: 122 cm, 48 Inch) Height, Inches : 11 Inch(Converted to: 0 ft 11 Inch, 27.94 cm) Clinical Height : 149.86 cm Weight Source : Bed scale Weight Entry Format : [place] Body Weight : 43 kg KASSI WATSON [...] KASSI WATSON RN - 06/26/2019 18:38 EDT [place] Suicide Severity Rating Scale (C-SSRS) CSSRS Past [...]
--- OUTSIDE RECORDS SUMMARY | 2024-12-21 10:15 | XMS_ITS | Encounter Summary ---
Author Organization [employer] ([place], [place], [place], [place]) Address [address] [place] [address] Care Team Providers Care Staff Technologist Name Role Phone Unavailable Primary Care Provider Unavailabl e Encounter Details Date Type Department Care Team (Late st Contact Info) Description 06/18/2019 Transcribed Document [facility] [place] [facility] [place] [address] ProviderMariela MD [address] [place] [address] Social History Tobacco Use Types Packs/Day Years [...]
--- OUTSIDE RECORDS SUMMARY | 2024-12-21 10:15 | XMS_ITS | Encounter Summary ---
Author Organization [employer] ([place], [place], [place], [place]) Address [address] [place] [address] Care Team Providers Care National Account Director Name Role Phone Unavailable Primary Care Provider Unavailabl e Encounter Details Date Type Department Care Team (Late st Contact Info) Description 06/26/2019 Transcribed Document [facility] [place] [facility] [place] [address] ProviderMariela MD [address] [place] [address] Social History Tobacco Use Types Packs/Day Years [...] 07/01/2019 22:17 EDT Electronically signed by Chantal [facility] Conversion Abrasive Band Winder Cerner at 06/16/2022 8:26 PM CDT documented in this encounter Plan of Treatment Not on file documented as of this encounter Visit Diagnoses Not on filedocumented in this encounter
--- OUTSIDE RECORDS SUMMARY | 2024-12-21 10:15 | XMS_ITS | Encounter Summary ---
Author Organization [employer] ([place], [place], [place], [place]) Address [address] [place] [address] Care Team Providers Care Pulmonologist/Intensivist Name Role Phone Unavailable Primary Care Provider Unavailabl e Encounter Details Date Type Department Care Team (Late st Contact Info) Description 08/20/2020 Transcribed Document [facility] [place] [address] [place] [address] ProviderMariela MD [address] [place] [address] Social History Tobacco Use Types [...] 08/20/2020 14:50 EDT Electronically signed by Chantal [facility] Conversion Temperature Inspector Cerner at 06/16/2022 8:05 PM CDT documented in this encounter Plan of Treatment Not on file documented as of this encounter Visit Diagnoses Not on filedocumented in this encounter
--- OUTSIDE RECORDS SUMMARY | 2024-12-21 10:15 | XMS_ITS | Encounter Summary ---
Author Organization [employer] ([place], [place], [place], [place]) Address [address] [place] [address] Care Team Providers Care Senior Health Consultant Name Role Phone Unavailable Primary Care Provider Unavailabl e Encounter Details Date Type Department Care Team (Late st Contact Info) Description 08/22/2018 Transcribed Document [facility] [place] [facility] [address] ProviderMariela MD [address] [place] [id number] Social History Tobacco Use Types Packs/Day Years [...]
--- OUTSIDE RECORDS SUMMARY | 2024-12-21 10:15 | XMS_ITS | Encounter Summary ---
Author Organization [employer] ([place], [place], [place], [place]) Address [address] [place] [address] Care Team Providers Care Paperhanger Name Role Phone Unavailable Primary Care Provider Unavailabl e Encounter Details Date Type Department Care Team (Late st Contact Info) Description 06/18/2019 Transcribed Document [facility] [place] [facility] [place] [address] ProviderMariela MD [address] [place] [id number] Social History Tobacco Use Types Packs/Day Years [...] ceftriaxone. She reportedly did follow up with [facility] office. She reportedly had her [...] Due to this she presented to [facility]. There she had a CT of [...] orthopedic history she was subsequently transferred to [facility] for further evaluation of the [...] 50 m - 2 Gram, IV Piggyback, [id number], infuse over 30 Minute(s), Routine clindamycin - [...] (fluticasone 50 mcg/inh nasal spray) - 2 [place], Nostrils Both, [place], BID, PRN for Allergies, Routine Pain Meds [...] 16) ALB L 2.0 (JUN 16) Micro: [facility]: 06/15 [facility] Blood cultures positive [...] if any questions. Electronically signed by Chantal [facility] Conversion Terminal Operations Supervisor Cerner at 06/16/2022 8:02 PM CDT documented in this encounter Plan of Treatment Not on file documented as of this encounter Visit Diagnoses Not on filedocumented in this encounter
--- OUTSIDE RECORDS SUMMARY | 2024-12-21 10:15 | XMS_ITS | Encounter Summary ---
Author Organization [employer] ([place], [place], [place], [place]) Address [address] [place] [address] Care Team Providers Care Cement Or Concrete Finishing Supervisor Name Role Phone Unavailable Primary Care Provider Unavailabl e Encounter Details Date Type Department Care Team (Late st Contact Info) Description 06/18/2019 Transcribed Document [facility] [place] [facility] [place] [address] ProviderMariela MD [address] [place] [address] Social History Tobacco Use Types [...] Daily fluticasone 50 mcg/inh nasal spray, 2 [place], Nostrils Both, BID, PRN gabapentin, 300 mg= [...] BID fluticasone 50 mcg/inh nasal spray, 2 [place], Nostrils Both, BID, PRN Lasix 40 mg [...] sulfa drugs (Itching) Electronically signed by Chantal [facility] Conversion Diet Kitchen Cook Cerner at 06/16/2022 8:06 PM CDT documented in this encounter Plan of Treatment Not on file documented as of this encounter Visit Diagnoses Not on filedocumented in this encounter
--- OUTSIDE RECORDS SUMMARY | 2024-12-21 10:15 | XMS_ITS | Encounter Summary ---
Author Organization [employer] ([place], [place], [place], [place]) Address [address] [place] [address] Care Team Providers Care Senior Electrical Designer Name Role Phone Unavailable Primary Care Provider Unavailabl e Encounter Details Date Type Department Care Team (Late st Contact Info) Description 07/11/2019 Transcribed Document [facility] [place] [facility] [place] [address] ProviderMariela MD [address] [place] [address] Social History Tobacco Use Types Packs/Day Years [...] Historical ProviderMD - 07/11/2019 2:00 AM CDT Self Storage Manager Details Entered On: 07/11/2019 1:43 EDT Performed [...]
--- OUTSIDE RECORDS SUMMARY | 2024-12-21 10:15 | XMS_ITS | Encounter Summary ---
Author Organization [employer] ([place], [place], [place], [place]) Address [address] [place] [address] Care Team Providers Care Thermite Bomb Loader Name Role Phone Unavailable Primary Care Provider Unavailabl e Encounter Details Date Type Department Care Team (Late st Contact Info) Description 08/22/2018 Transcribed Document [facility] [place] [facility] [place] [address] ProviderMariela MD [address] [place] [address] Social History Tobacco Use Types Packs/Day [...] signed by Maureen Cornejo Conversion Director Of Channel Marketing Cerner at 06/16/2022 8:14 PM CDT documented in this encounter Plan of Treatment Not on file documented as of this encounter Visit Diagnoses Not on filedocumented in this encounter
--- OUTSIDE RECORDS SUMMARY | 2024-12-21 10:15 | XMS_ITS | Encounter Summary ---
Author Organization [employer] ([place], [place], [place], [place]) Address [address] [place] [address] Care Team Providers Care Sap Bods Developer Name Role Phone Unavailable Primary Care Provider Unavailabl e Encounter Details Date Type Department Care Team (Late st Contact Info) Description 06/26/2019 Transcribed Document [facility] [place] [address] [place] [address] ProvideraMriela MD [address] [place] [address] Social History Tobacco Use Types Packs/Day Years [...]
--- OUTSIDE RECORDS SUMMARY | 2024-12-21 10:15 | XMS_ITS | Encounter Summary ---
Author Organization [employer] ([place], [place], [place], [place]) Address [address] [place] [address] Care Team Providers Care Laboratory Mechanical Technician Name Role Phone Unavailable Primary Care Provider Unavailabl e Encounter Details Date Type Department Care Team (Late st Contact Info) Description 07/11/2019 Transcribed Document [facility] Radiology [address] [place] [address] Shawanda Barahona MD [address] [id number] Social History Tobacco Use Types Packs/Day Years [...] (JULY 05) L 1.9 (JULY 03) Micro: [facility]: 06/15 [facility] Blood cultures positive for group B [...]
--- OUTSIDE RECORDS SUMMARY | 2024-12-21 10:15 | XMS_ITS | Encounter Summary ---
Author Organization [employer] ([place], [place], [place], [place]) Address [address] [place] [address] Care Team Providers Care Telescope Maintenance Name Role Phone Unavailable Primary Care Provider Unavailabl e Encounter Details Date Type Department Care Team (Late st Contact Info) Description 07/11/2019 Transcribed Document [facility] [place] [facility] [place] [address] ProviderMariela MD [address] [place] [address] Social History Tobacco Use Types Packs/Day Years [...] CAREY OLVERA RN - 07/11/2019 13:33 EDT Electronically signed by Maureen Cornejo Conversion Fiber Product Cutting Machine Operator Cerbryce at 06/16/2022 8:09 PM CDT documented in this encounter Plan of Treatment Not on file documented as of this encounter Visit Diagnoses Not on filedocumented in this encounter
--- OUTSIDE RECORDS SUMMARY | 2024-12-21 10:16 | XMS_ITS | Encounter Summary ---
Author Organization [employer] ([place], [place], [place], [place]) Address [address] [place] [address] Care Team Providers Care Armhole Raiser Lockstitch Name Role Phone Unavailable Primary Care Provider Unavailabl e Encounter Details Date Type Department Care Team (Late st Contact Info) Description 08/22/2018 Transcribed Document [facility] [place] [facility] [place] [address] ProviderMariela MD [facility] [place] [address] Social History Tobacco Use Types [...] 12:14 PT Treatment Instructions Ordered By: EPPS, JEWISH, MD-ORT Active Diagnoses : No Qualifying Diagnoses [...] Use of Assistive Device : Returns demonstration DLEMY ALLEN Physical Therapist - 08/22/2018 13:16 EDT [...] ALLEN Physical Therapist - 08/22/2018 13:16 EDT Vice President Business & Corporate Development Goals Other PT LTG Grid Goal #1 Goal #2 Goal #3 Other : Patient will ambulate at least 50 feet with RWx and no more than Alexandra without LOB or safety concerns to allow safe household or facility ambulation upon [facility] care DC. Patient will participate with [...] the text rendition version of the form. [place] PT Charges Gait Training Each 15 Min : 1 PT Eval Low Complexity : 1 DELMY ALLEN Physical Therapist - 08/22/2018 13:16 EDT documented in this encounter Plan of Treatment Not on file documented as of this encounter Visit Diagnoses Not on filedocumented in this encounter
--- OUTSIDE RECORDS SUMMARY | 2024-12-21 10:16 | XMS_ITS | Encounter Summary ---
Author Organization [employer] ([place], [place], [place], [place]) Address [address] [place] [address] Care Team Providers Care Pit Shoveler Name Role Phone Unavailable Primary Care Provider Unavailabl e Encounter Details Date Type Department Care Team (Late st Contact Info) Description 08/19/2020 Transcribed Document [facility] [place] [facility] [place] [address] ProviderMariela MD [address] [place] [address] Social History Tobacco Use Types [...] Policy Numbers : Insurance 1 Health Plan: [facility] MEDICARE ADVANTAGE Policy Number: [id number] Authorization Number: Insurance Primary Name : [facility] MED[facility]VANT[facility] Policy Number: [id number] Authorization Status-Primary : Admit approved Reference Number-Primary : [id number] Authorization Number-Primary : [id number] Number of Days Authorized-Primary : 0 Day(s) Authorized Service Begin Date-Primary : 08/20/2020 EDT Authorized Service End Date-Primary : 08/20/2020 EDT Authorization Comments-Primary : [facility] Medicare approved per website for 1 day Historical Authorization Comments-Primary : No Authorization Comments Found TIESHA AQUINO RN-Utilization Review - 08/19/2020 15:14 EDT documented in this encounter Plan of Treatment Not on file documented as of this encounter Visit Diagnoses Not on filedocumented in this encounter
--- OUTSIDE RECORDS SUMMARY | 2024-12-21 10:16 | XMS_ITS | Encounter Summary ---
Author Organization [employer] ([place], [place], [place], [place]) Address [address] [place] [address] Care Team Providers Care Offal Separator Name Role Phone Unavailable Primary Care Provider Unavailabl e Encounter Details Date Type Department Care Team (Late st Contact Info) Description 07/11/[address] [facility] [place] [facility] [place] [address] ProviderMariela MD [address] [place] [address] Social History Tobacco Use Types Packs/Day Years [...] EDT Performed On: 07/11/2019 22:11 EDT by Biib Gallagher RN Intervention Information: indomethacin Performed by [...]
--- OUTSIDE RECORDS SUMMARY | 2024-12-21 10:16 | XMS_ITS | Encounter Summary ---
Author Organization [employer] ([place], [place], [place], [place]) Address [address] [place] [address] Care Team Providers Care Toy Parts Former Supervisor Name Role Phone Unavailable Primary Care Provider Unavailabl e Encounter Details Date Type Department Care Team (Late st Contact Info) Description 08/22/2018 Transcribed Document [facility] [place] [facility] [place] [address] ProviderMariela MD [address] [place] [address] Social History Tobacco Use Types Packs/Day Years [...] Kamini Sullivan RN - 08/26/2018 5:40 EDT Electronically signed by Maureen Cornejo Conversion Computed Tomography Technologist Cerner at 06/16/2022 8:26 PM CDT documented in this encounter Plan of Treatment Not on file documented as of this encounter Visit Diagnoses Not on filedocumented in this encounter
--- OUTSIDE RECORDS SUMMARY | 2024-12-21 10:16 | XMS_ITS | Encounter Summary ---
Author Organization [employer] ([place], [place], [place], [place]) Address [address] [place] [address] Care Team Providers Care Slice Plug Cutter Operator Helper Name Role Phone Unavailable Primary Care Provider Unavailabl e Encounter Details Date Type Department Care Team (Late st Contact Info) Description 08/20/2020 Transcribed Document [facility] [place] [facility] [place] [address] ProviderMariela MD [facility] [place] [address] Social History Tobacco Use Types [...]
--- OUTSIDE RECORDS SUMMARY | 2024-12-21 10:16 | XMS_ITS | Encounter Summary ---
Author Organization [employer] ([place], [place], [place], [place]) Address [address] [place] [address] Care Team Providers Care Slat Basket Maker Name Role Phone Unavailable Primary Care Provider Unavailabl e Encounter Details Date Type Department Care Team (Late st Contact Info) Description 08/20/2020 Transcribed Document [facility] [place] [facility] [place] [address] ProviderMariela MD [address] [place] [address] Social History Tobacco Use Types [...] or 4 frozen water bottles in the [facility] CUBE. ?? Continue to use Incentive Spirometer [...] Barley. Bulgur wheat. Millet. Bran muffins. Popcorn. Reubens wafer crackers. ?? Vegetables Sweet potatoes. Spinach. Kale. Artichokes. Cabbage. Broccoli. Green peas. Carrots. Squash. ?? Fruits Berries. Pears. Apples. Oranges. Avocados. Prunes and raisins. Dried figs. ?? Meats and Other Protein Sources [place], kidney, call, and soy beans. Split peas. [...] gray has 11 g of protein. ?? Hayden seeds - 1 oz has 5.5 g [...] floor. ?? Place frequently used items in [id number] places ?? Keep electrical cables out of [...] ? Using the bathroom. ? Using household layer up or toxic chemicals. ? Touching or taking [...]
--- OUTSIDE RECORDS SUMMARY | 2024-12-21 10:16 | XMS_ITS | Clinical Summary ---
[facility] Address [address] [place] [address] Care Team Providers Care Merchandising Intern Name Role Phone Musa Pollock MD Primary Care Provider [phone] Allergies Active Allergy Reactions Criticality Noted Date [...] Insurance [id number] MED[employer] REPLACE Care Teams Merchandising Intern Relationship Specialty Start Date End Date Musa Pollock MD PCP - General 10/31/14
--- OUTSIDE RECORDS SUMMARY | 2024-12-21 10:16 | XMS_ITS | Encounter Summary ---
Author Organization [email or web address] ([place], [place], [place], [place]) Address [address] [place] [address] Care Team Providers Care Broaching Machine Operator Name Role Phone Unavailable Primary Care Provider Unavailabl e Encounter Details Date Type Department Care Team (Late st Contact Info) Description 07/10/2019 Transcribed Document [facility] [place] [facility] [place] [place] [address] ProviderMariela MD [address] [place] [address] Social History Tobacco Use Types Packs/Day Years [...] EDT Electronically signed by Maureen Cornejo Conversion Internet Network Specialist Cerner at 06/16/2022 8:23 PM CDT documented in this encounter Plan of Treatment Not on file documented as of this encounter Visit Diagnoses Not on filedocumented in this encounter
--- OUTSIDE RECORDS SUMMARY | 2024-12-21 10:16 | XMS_ITS | Encounter Summary ---
Author Organization [employer] ([place], [place], [place], [place]) Address [address] [place] [address] Care Team Providers Care Collections Professional Name Role Phone Unavailable Primary Care Provider Unavailabl e Encounter Details Date Type Department Care Team (Late st Contact Info) Description 07/11/2019 Transcribed Document [facility] [place] [facility] [place] [address] ProviderMariela MD [facility] [place] [address] Social History Tobacco Use Types [...] Performed On: 07/11/2019 13:28 EDT by MASSIEL HENEDRSON PharmD, BCPS Interdisciplinary Rounds Working Summary Patient's [...]
--- OUTSIDE RECORDS SUMMARY | 2024-12-21 10:16 | XMS_ITS | Encounter Summary ---
Author Organization [facility] ([place], [place], [place], [place]) Address [address] [place] [address] Care Team Providers Care Top Former Name Role Phone Unavailable Primary Care Provider Unavailabl e Encounter Details Date Type Department Care Team (Late st Contact Info) Description 08/20/2020 Transcribed Document [facility] [place] [facility] [place] [address] ProviderMariela MD [place] [address] Social History Tobacco Use Types [...] form. Electronically signed by Maureen Cornejo Conversion Supervisor Dental Laboratory Cerner at 06/21/2022 2:02 PM CDT documented in this encounter Plan of Treatment Not on file documented as of this encounter Visit Diagnoses Not on filedocumented in this encounter
--- OUTSIDE RECORDS SUMMARY | 2024-12-21 10:16 | XMS_ITS | Encounter Summary ---
Author Organization [employer] ([place], [place], [place], [place]) Address [address] [place] [address] Care Team Providers Care Stencil Maker Name Role Phone Unavailable Primary Care Provider Unavailabl e Encounter Details Date Type Department Care Team (Late st Contact Info) Description 08/22/2018 Transcribed Document [facility] [place] [facility] [place] [address] ProviderMariela MD [address] [place], [place] [id number] Social History Tobacco Use Types Packs/Day Years [...] 08/22/2018 14:00 EDT by Charleen Ortiz Social Worker-Deck Scaler Initial Assessment I Previously Documented Living Environment [...] Guardianship Needed : No Charleen Ortiz Social Worker-Deck Scaler - 08/22/2018 14:00 EDT Initial Assessment II Sensory and Motor Deficits : Weakness Charleen Ortiz Social Worker-Deck Scaler - 08/22/2018 14:00 EDT Discharge Needs I Anticipated Discharge To, CM : assisted facility Current Home Treatment/Equipment : Current Home [...] there in past. Referral was made via [employer]. Contacted [facility] liaison and notified her of the referral. Continue to follow... Charleen Ortiz Social Worker-Deck Scaler - 08/22/2018 14:00 EDT documented in this encounter Plan of Treatment Not on file documented as of this encounter Visit Diagnoses Not on filedocumented in this encounter
--- OUTSIDE RECORDS SUMMARY | 2024-12-21 10:16 | XMS_ITS | Encounter Summary ---
Author Organization [employer] ([place], [place], [place], [place]) Address [address] [place] [address] Care Team Providers Care Senior Quality Assurance Specialist Name Role Phone Unavailable Primary Care Provider Unavailabl e Encounter Details Date Type Department Care Team (Late st Contact Info) Description 06/26/2019 Transcribed Document [facility] Family Medicine [facility] [place] [address] ProviderMariela MD [address] [place] [address] Social History Tobacco Use Types Packs/Day [...] Gates MD - 06/26/2019 1:04 [place] [address] SOFIA GILL :1940 Visit Time:06/16/2019 Your Visit [...] (fluticasone 50 mcg/ inh nasal spray) 2 [place](s) Nostrils Both Two Times A Day as [...] or 4 frozen water bottles in the [facility] cube. ??? Contact a health care [...] Barley. Bulgur wheat. Millet. Bran muffins. Popcorn. Hiller wafer crackers. ??? Vegetables Sweet potatoes. Spinach. Kale. Artichokes. Cabbage. Broccoli. Green peas. Carrots. Squash. ??? Fruits Berries. Pears. Apples. Oranges. Avocados. Prunes and raisins. Dried figs. ??? Meats and Other Protein Sources [place], kidney, call, and soy beans. Split peas. [...] gray has 11 g of protein. ??? [place] seeds ??? 1 oz has 5.5 g [...] floor. ??? Place frequently used items in [id number] places ??? Keep electrical cables out of [...] ? Using the bathroom. ? Using household welder production line gas or toxic chemicals. ? Touching or taking [...] To Walk With a Standard Walker: 1. lathe set up operator your walker. Do not slide your [...] 02/15/2006 Document Revised: 07/15/2016 Document Reviewed: 08/30/2015 [employer] Patient Education ?? [address] Emergency Awareness and Preventative Care STROKE is [...] Assistance with quitting is available by contacting 5-973-YBPO-NOW. This is a free resource providing counseling, [...] range between ( 1.0 and 7.0 ) [place] #: 0.86 K/uL -- Normal range between ( 0.24 and 0.82 ) Eos #: 0.25 K/uL -- Normal range between ( 0.04 and 0.54 ) [place] %: 8.7 % -- Normal range between [...] ANC #: 16 K/uL Toxic Granulation: 1+ [place] Percent Man: 6 % -- Normal range between ( 4 and 5 ) Neutrophil Percent Man: 77 % -- Normal range between ( 50 and 65 ) Platelet Ct Estimate: Increased Lymph Percent Man: 16 % -- Normal range between ( 24 and 44 ) 06/22/2019 2:40 AM [place] Percent Man: 3 % -- Normal range [...] ) Urine Bilirubin Dipstick: Small Urine Specific [place]: 1.033 -- Normal range between ( 1.005 [...] Red Appearance BF: Bloody Auto RBC BF: 596471 /uL -- Normal range between ( 0 and 31999 ) Auto WBC/Nucleated Cells BF: 19784 /uL -- Normal range between ( 0 [...] was given the opportunity to ask questions. Patient/Data Warehouse Consultant Name: Patient/Data Warehouse Consultant Signature: Relationship to Patient: Clinician/Hospital Data Warehouse Consultant Signature: Date: documented in this encounter Plan of Treatment Not on file documented as of this encounter Visit Diagnoses Not on filedocumented in this encounter
--- OUTSIDE RECORDS SUMMARY | 2024-12-21 10:16 | XMS_ITS | Encounter Summary ---
Author Organization [employer] ([place], [place], [place], [place]) Address [address] [place] [address] Care Team Providers Care Bowling Alley Mechanic Name Role Phone Unavailable Primary Care Provider Unavailabl e Encounter Details Date Type Department Care Team (Late st Contact Info) Description 08/24/2020 Transcribed Document [facility] Family Medicine [address] [place] [address] ProviderMariela MD [address] [place] [address] Social History Tobacco Use Types [...] 08/24/2020 16:21 EDT Electronically signed by Chantal [facility] Conversion Furniture Packer Min at 06/16/2022 8:14 PM CDT documented in this encounter Plan of Treatment Not on file documented as of this encounter Visit Diagnoses Not on filedocumented in this encounter
--- OUTSIDE RECORDS SUMMARY | 2024-12-21 10:16 | XMS_ITS | Encounter Summary ---
Author Organization [employer] ([place], [place], [place], [place]) Address [address] [place] [address] Care Team Providers Care Sketch Liner Name Role Phone Unavailable Primary Care Provider Unavailabl e Encounter Details Date Type Department Care Team (Late st Contact Info) Description 08/25/2020 Transcribed Document [facility] Family Medicine [facility] [place] [address] ProviderMariela MD [address] [place] [address] Social History Tobacco Use Types Packs/Day [...]
--- OUTSIDE RECORDS SUMMARY | 2024-12-21 10:16 | XMS_ITS | Encounter Summary ---
Author Organization [employer] ([place], [place], [place], [place]) Address [address] [place] [address] Care Team Providers Care Throw Out Clerk Name Role Phone Unavailable Primary Care Provider Unavailabl e Encounter Details Date Type Department Care Team (Late st Contact Info) Description 06/26/2019 Transcribed Document [facility] [place] [facility] [place] [address] ProviderMariela MD [address] [place] [address] Social History Tobacco Use Types Packs/Day Years [...] On: 06/26/2019 13:03 EDT by Anika Clark specimen collector Documentation Patient Disposition, General : Discharge Discharge [...] 06/26/2019 13:03 EDT Electronically signed by Chantal [facility] Conversion Clean Out Driller Helper Cerner at 06/16/2022 8:22 PM CDT documented in this encounter Plan of Treatment Not on file documented as of this encounter Visit Diagnoses Not on filedocumented in this encounter
--- OUTSIDE RECORDS SUMMARY | 2024-12-21 10:16 | XMS_ITS | Encounter Summary ---
Author Organization [email or web address] ([place], [place], [place], [place]) Address [address] [place] [address] Care Team Providers Care Casing Tier Name Role Phone Unavailable Primary Care Provider Unavailabl e Encounter Details Date Type Department Care Team (Late st Contact Info) Description 08/20/2020 Transcribed Document [facility] [place] [address] ProviderMariela MD [address] [place], [place] [id number] Social History Tobacco Use Types Packs/Day Years [...]
--- OUTSIDE RECORDS SUMMARY | 2024-12-21 10:16 | XMS_ITS | Encounter Summary ---
Author Organization [employer] ([place], [place], [place], [place]) Address [address] [place] [address] Care Team Providers Care Bumper Operator Name Role Phone Unavailable Primary Care Provider Unavailabl e Encounter Details Date Type Department Care Team (Late st Contact Info) Description 08/22/2018 Transcribed Document [facility] [place] [facility] [place] [address] ProviderMariela MD [place] [address] Social History Tobacco Use Types [...] incision uncovered if it is completely dry. [place] out 2 weeks post op. 6) An [...] Daily fluticasone 50 mcg/inh nasal spray 2 [place], PRN, Nostrils Both, BID Lasix 40 mg [...] Tylenol 1000mg TID Electronically signed by Chantal, [facility] Conversion Body Trimmer Upholsterer Cerner at 06/16/2022 8:24 PM CDT documented in this encounter Plan of Treatment Not on file documented as of this encounter Visit Diagnoses Not on filedocumented in this encounter
--- OUTSIDE RECORDS SUMMARY | 2024-12-21 10:16 | XMS_ITS | Encounter Summary ---
Author Organization [employer] ([place], [place], [place], [place]) Address [address] [place] [address] Care Team Providers Care Director Airport Operations Name Role Phone Unavailable Primary Care Provider Unavailabl e Encounter Details Date Type Department Care Team (Late st Contact Info) Description 08/20/2020 Transcribed Document [facility] [place] [facility] [place] [address] ProviderMariela MD formerly [facility] [place] [address] Social History Tobacco Use Types [...] EDT Chloraseptic Menthol 1.4% topical spray: 5 [place], Oral, [place], Q2H, PRN for Sore Throat, Routine, Start [...] 50 mcg/inh nasal spray: 100 mcg, 2 [place], Nostrils Both, [place], BID, PRN for Allergies, Routine, Start 08/20/20 [...] Refill(s) fluticasone 50 mcg/inh nasal spray: 2 [place], Nostrils Both, [place], BID, PRN Allergies, 0 Refill(s) furosemide 40 [...] Daily fluticasone 50 mcg/inh nasal spray 2 [place], PRN, Nostrils Both, BID furosemide 40 mg [...] fluticasone 0.05% nasal spray 100 mcg 2 [place], Nostrils Both, BID magnesium hydroxide 8% liq [...] Oral, Q4H phenol 1.4% throat spray 5 [place], Oral, Q2H promethazine 25 mg tab 12.5 mg 0.5 Tab, Oral, Q6H promethazine 25 mg/1 mL inj 12.5 mg 0.5 mL, IV Push, Q6H senna 8.6 mg tab 8.6 mg 1 Tab, Oral, At Bedtime traZODone 50 mg tab 50 mg 1 Tab, Oral, At Bedtime Problem list: Medical Cardiac arrhythmia / SNOMED CT 3994051717 / Confirmed Cataract / SNOMED CT 3911383332 / Confirmed Chronic venous insufficiency / SNOMED CT 87455874 / Confirmed Constipation / SNOMED CT 998705874 / Confirmed Edema - BLE / SNOMED CT 218317738 / Confirmed History of obstructive sleep apnea / IMO [id number] / Confirmed HTN (hypertension) / SNOMED CT 8217360577 / Confirmed Hx: GERD (gastroesophageal reflux disease) / SNOMED CT 5524006481 / Confirmed Hypercholesteremia / SNOMED CT 47702390 / Confirmed Hypothyroid / SNOMED CT 781843399 / Confirmed Kidney cysts right / SNOMED CT 9191584461 / Confirmed Knee pain, bilateral / SNOMED CT 342206524 / Confirmed Lung abnormality right / SNOMED CT 1402086699 / Confirmed Murmur, cardiac / SNOMED CT 5714262671 / Confirmed Osteoarthritis / SNOMED CT 0207340565 / Confirmed Osteoporosis / SNOMED CT 171342376 / Confirmed Pain management / SNOMED CT 230071481 / Confirmed Redness bilateral lower legs / SNOMED CT 3738012489 / Confirmed Seasonal allergies / SNOMED CT 758603557 / Confirmed Shoulder pain, bilateral / SNOMED CT 9577897913 / Confirmed Sleep apnea / SNOMED CT 796734020 / Confirmed, Active Problems (21) Cardiac arrhythmia [...] left TKA. left knee ORIF. lap band. Gomer filter. Colonoscopy ([id number]). Social History Patient is and has 2 [...] swelling, No deformity, Normal gait. Integumentary: Warm, [place], Intact, No pallor, No rash, WOUND STABLE. [...] then you may give Tylenol 650 mg PO/AZ x 1. If no response in 2 [...]
--- OUTSIDE RECORDS SUMMARY | 2024-12-21 10:16 | XMS_ITS | Encounter Summary ---
Author Organization [employer] ([place], [place], [place], [place]) Address [address] [place] [address] Care Team Providers Care Tube Builder Name Role Phone Unavailable Primary Care Provider Unavailabl e Encounter Details Date Type Department Care Team (Late st Contact Info) Description 08/22/2018 Transcribed Document [facility] Family Medicine [facility] [place] [address] ProviderMariela MD [address] [place] [address] Social History Tobacco Use Types Packs/Day [...] form. Electronically signed by Nikunj Cornejoh Conversion Associate Financial Analyst Cerner at 06/16/2022 8:30 PM CDT documented in this encounter Plan of Treatment Not on file documented as of this encounter Visit Diagnoses Not on filedocumented in this encounter
--- OUTSIDE RECORDS SUMMARY | 2024-12-21 10:16 | XMS_ITS | Encounter Summary ---
Author Organization [employer] ([place], [place], [place], [place]) Address [address] [place] [address] Care Team Providers Care Oyster Picker Name Role Phone Unavailable Primary Care Provider Unavailabl e Encounter Details Date Type Department Care Team (Late st Contact Info) Description 08/22/2018 Transcribed Document [facility] Family Medicine [facility] [place] [address] ProviderMariela MD [address] [place] [address] Social History Tobacco Use Types Packs/Day Years [...] 08/22/2018 9:40 EDT Electronically signed by Chantal [facility] Conversion Door To Door Salesman Cerner at 06/16/2022 8:22 PM CDT documented in this encounter Plan of Treatment Not on file documented as of this encounter Visit Diagnoses Not on filedocumented in this encounter
--- OUTSIDE RECORDS SUMMARY | 2024-12-21 10:16 | XMS_ITS | Encounter Summary ---
Author Organization [employer] ([place], [place], [place], [place]) Address [address] [place] [address] Care Team Providers Care Ethnographic Materials Conservator Name Role Phone Unavailable Primary Care Provider Unavailabl e Encounter Details Date Type Department Care Team (Late st Contact Info) Description 06/26/[address] [facility] [place] Family Medicine [facility] [place] [address] ProviderMariela MD [address] [place] [phone] Social History Tobacco Use Types Packs/Day Years [...] - 06/26/2019 5:45 PM CDT [facility] Inpatient Documentation Entered On: 06/26/2019 17:49 EDT Performed On: 06/26/2019 17:45 EDT by George Dial RN [facility] Admission Date : Admit Date 06/16/2019 [...]
--- OUTSIDE RECORDS SUMMARY | 2024-12-21 10:16 | XMS_ITS | Encounter Summary ---
Author Organization [employer] ([place], [place], [place], [place]) Address [address] [place] [address] Care Team Providers Care Blackener Name Role Phone Unavailable Primary Care Provider Unavailabl e Encounter Details Date Type Department Care Team (Late st Contact Info) Description 08/24/2020 Transcribed Document [facility] [place] [facility] [place] [address] ProviderMariela MD [address] [place] [address] Social History Tobacco Use Types Packs/Day [...]
--- OUTSIDE RECORDS SUMMARY | 2024-12-21 10:16 | XMS_ITS | Encounter Summary ---
Author Organization [employer] ([place], [place], [place], [place]) Address [address] [place] [address] Care Team Providers Care Core Inspector Name Role Phone Unavailable Primary Care Provider Unavailabl e Encounter Details Date Type Department Care Team (Late st Contact Info) Description 07/11/2019 Transcribed Document [facility] [place] [facility] [place] [address] ProviderMariela MD [address] [place] [phone] Social History Tobacco Use Types Packs/Day Years [...] 0.9% 50 mL 2 Gram, IV Piggyback, [id number] cyanocobalamin 1,000 mcg tab 5,000 mcg 5 [...] Oral, Q4H fluticasone 0.05% nasal spray 2 [place], Nostrils Both, BID magnesium hydroxide 8% liq [...] % 22.4 % Lymph # 1.61 x10(3)/uL [place] % 12.7 % HI [place] # 0.91 K/uL Eos % 6.3 % [...]
--- OUTSIDE RECORDS SUMMARY | 2024-12-21 10:16 | XMS_ITS | Encounter Summary ---
Author Organization [employer] ([place], [place], [place], [place]) Address [address] [place] [address] Care Team Providers Care Contract Implementation Analyst Name Role Phone Unavailable Primary Care Provider Unavailabl e Encounter Details Date Type Department Care Team (Late st Contact Info) Description 08/24/2020 Transcribed Document [facility] [place] [facility] [place] [address] ProviderMariela MD [address] [place] [address] Social History Tobacco Use Types Packs/Day [...]
--- OUTSIDE RECORDS SUMMARY | 2024-12-21 10:16 | XMS_ITS | Encounter Summary ---
Author Organization [employer] ([place], [place], [place], [place]) Address [address] [place] [address] Care Team Providers Care Truck Shop Supervisor Name Role Phone Unavailable Primary Care Provider Unavailabl e Encounter Details Date Type Department Care Team (Late st Contact Info) Description 06/26/2019 Transcribed Document [facility] [place] [facility] [place] [address] ProviderMariela MD [facility] [place] [address] Social History Tobacco Use [...] (JUN 22) L 1.4 (JUN 21) Micro: [facility]: 06/15 [facility] Blood cultures positive for group [...] - wbc down and no fevers continue [facility] abx -Monitor H&H and LTAC will monitor UM: IV antibiotics and LTAC documented in this encounter Plan of Treatment Not on file documented as of this encounter Visit Diagnoses Not on filedocumented in this encounter
--- OUTSIDE RECORDS SUMMARY | 2024-12-21 10:16 | XMS_ITS | Encounter Summary ---
Author Organization [employer] ([place], [place], [place], [place]) Address [address] [place] [address] Care Team Providers Care Fiscal Manager Name Role Phone Unavailable Primary Care Provider Unavailabl e Encounter Details Date Type Department Care Team (Late st Contact Info) Description 08/22/2018 Transcribed Document [facility] Family Medicine [facility] [place] [address] ProviderMariela MD [facility] [place] [address] Social History Tobacco [...] Mariela ProviderMD - 08/22/2018 9:14 AM CDT [facility] Main OR IntraOp Summary Primary Physician: NIMO EPPS MD-ORT Finalized Date/Time: 08/22/18 11:15:32 Pt. Name: SOFIA GILL Eufemia /Sex: 1940 Female Med Rec #: [id number] Physician: NIMO EPPS MD-ORT Financial #: [id number] Pt. Type: O Room/Bed: Admit/Disch: 08/22/18 04:51:00 - Institution: [facility] IntraOp Case Attendance Entry 1 Entry 2 Entry 3 Case Attendee NIMO EPPS STULL, KELSI A, NA Warner, Missy M Rn RENEEORT Role Performed Surgeon/Proceduralist, CIVIL GEOTECHNICAL ENGINEER/Nurse Pushcart Peddler Quantitative Associate, First First Time In 08/22/18 09:11:00 08/22/18 [...] ESTEBAN Role Performed Scrub, First Scrub, Second Bumper Straightener, First Time In 08/22/18 08:38:00 08/22/18 08:38:00 [...] SOLOMON MCCRACKEN PA-C Role Performed Vendor Physician clinical laboratory assistant Time In 08/22/18 08:38:00 08/22/18 09:38:00 Time Out 08/22/18 11:06:00 08/22/18 11:06:00 Procedure Knee Total Joint Knee Total Joint Replacement Replacement Other Attendee jim morales Superficial Wound Closed By: Last Modified By: Yessi Ceron, Yessi Manrique, Laxmi 08/22/18 11:15:26 08/22/18 11:15:02 [facility] IntraOp Case Attendance Audit 08/22/18 11:15:26 Retinal Surgeon: [id number] Modifier: [id number] <+> Role Performed 7 <*> Procedure Knee Total Joint Replacement 08/22/18 11:15:02 Retinal Surgeon: [id number] Modifier: [id number] 1 <*> Procedure Knee Total Joint Replacement [...] Procedure Knee Total Joint Replacement 08/22/18 10:25:09 Retinal Surgeon: [id number] Modifier: [id number] 1 <+> Time Out 1 <*> Procedure Knee Total Joint Replacement 5 <+> Time Out 5 <*> Procedure Knee Total Joint Replacement 08/22/18 09:38:47 Retinal Surgeon: [id number] Modifier: [id number] <*> Procedure Knee Total Joint Replacement 8 <*> Time In 08/22/18 08:38:00 8 <*> Procedure Knee Total Joint Replacement 08/22/18 09:33:38 Retinal Surgeon: [id number] Modifier: [id number] 1 <*> Case Attendee NIMO EPPS MD-ORT 1 <*> Role Performed Surgeon/Proceduralist, First 1 <*> Time In 08/22/18 09:11:00 1 <*> Procedure Knee Total Joint Replacement 2 <*> Case Attendee ATTILA COMER, NA 2 <*> Role Performed CIVIL GEOTECHNICAL ENGINEER/Nurse Pushcart Peddler 2 <*> Time In 08/22/18 08:38:00 2 <*> Procedure Knee Total Joint Replacement 3 <*> Case Attendee Yessi Ceron, Rn 3 <*> Role Performed Quantitative Associate, First 3 <*> Time In 08/22/18 08:38:00 [...] OMAR JIMENEZ, CSA 6 <*> Role Performed Bumper Straightener, First 6 <*> Time In 08/22/18 08:38:00 6 <*> Procedure Knee Total Joint Replacement Entry 7 was deleted. Higher numbered entries shifted one position to fill the gap. <-> 7 Case Attendee JEANNE CASEY PAC <-> 7 Role Performed Physician clinical laboratory assistant <-> 7 Time In 08/22/18 08:38:00 <-> 7 Procedure Knee Total Joint Replacement <-> 7 Other Attendee 8 <*> Case Attendee OTHER, ATTENDEE #1 8 <+> Role Performed 8 <*> Time In 08/22/18 08:38:00 8 <*> Procedure Knee Total Joint Replacement 8 <-> Other Attendee jimreji morales 08/22/18 09:33:18 Retinal Surgeon: [id number] Modifier: [id number] 1 <*> Procedure Knee Total Joint Replacement [...] Procedure Knee Total Joint Replacement 08/22/18 09:32:29 Retinal Surgeon: [id number] Modifier: [id number] <+> 9 Case Attendee <+> 9 Role Performed <+> 9 Procedure 08/22/18 09:13:27 Retinal Surgeon: [id number] Modifier: [id number] 1 <+> Time In 1 <*> Procedure [...] [facility] IntraOp Case Times Audit 08/22/18 11:05:29 Retinal Surgeon: [id number] Modifier: [id number] <+> 1 Out Room Time <+> 1 Stop Time <+> 1 Stop Time 08/22/18 09:32:54 Retinal Surgeon: [id number] Modifier: [id number] <+> 1 Start Time [facility] IntraOp Cautery [...] 09:33:06 [facility] IntraOp Communication Audit 08/22/18 09:33:06 Retinal Surgeon: [id number] Modifier: [id number] <+> 1 Date and Time [facility] IntraOp [...] [facility] IntraOp Counts Verification Audit 08/22/18 10:17:11 Retinal Surgeon: [id number] Modifier: [id number] <*> Procedure Knee Total Joint Replacement [...] [facility] IntraOp Counts Final Audit 08/22/18 10:25:21 Retinal Surgeon: [id number] Modifier: [id number] 1 <*> Procedure Knee Total Joint Replacement [...] IntraOp Dressing and Packing Audit 08/22/18 09:32:44 Retinal Surgeon: [id number] Modifier: [id number] 1 <*> Applied By JEANNE CASEY PAC [...] IntraOp Fire Risk Assessment Audit 08/22/18 09:11:50 Retinal Surgeon: [id number] Modifier: [id number] <+> 1 Fire Risk Assessment Verified Date/Time [facility] IntraOp General Case Electronics Assembler And Tester 1 Case Information OR OR 02 [facility] Case Level 1 Room Verified Yes Wound Class I - Clean Specialty SN Orthopedic Anesthesia Type General ASA Class 3 Diagnosis Preop Diagnosis SEVERE DJD Postop Same As Preop Yes Postop Diagnosis SEVERE DJD Last Modified By: Yessi Ceron Rn 08/22/18 09:12:03 E IntraOp General Case Data Audit 08/22/18 09:12:03 Retinal Surgeon: [id number] Modifier: [id number] <+> 1 Room Verified 08/22/18 09:11:58 Retinal Surgeon: [id number] Modifier: [id number] <+> 1 ASA Class [facility] IntraOp Implant Log Entry 1 Entry 2 Entry 3 Type Implant (Synthetic) Implant (Synthetic) Implant (Synthetic) Implant Log Implant Type Bone Cement Hardware Hardware Tissue Implant Type Implant CEMENT BONE COBALT HV COMP FEM CR INTLOK VGRD TY TIB I-BEAM FIX Identification [id number] [id number] Description Implant Quantity 2 1 1 Implant Site RIGHT KNEE RIGHT KNEE RIGHT KNEE Implant Identification Model Number Implant Identification Serial Number Implant [id number] Identification Lot Number Implant Dj Surg:Encore Biomet Biomet Identification Med:Bobbi Entry Level Machine Operator Name: Implant [id number] Identification Catalog Number Implant Size Implant Has an Yes Yes Yes Expiration Date Implant Expiration 08/25/19 06/27/28 05/23/28 Date Wasted Radioactive Material Time Implanted Tissue Implant Continue for Tissue Implant Documentation Tissue Identification Number Graft Prep Per Entry Level Machine Operator Instructions: Tissue Preparation Method: Reconstitution Solution: Reconstitution Solution Lot Number Reconstitution Solution Expiration Date: Thawing Solution Thawing Solution Lot Number Thawing Solution Expiration Date Preparation Materials, Other Preparation Materials, Other Lot Number Preparation Materials, Other Expiration Date Tissue Prepared/Processed By Entry Level Machine Operator Paperwork Completed Implant Type Comment Last Modified By: Yessi Ceron Rn Warner, Missy M, Rn Warner, Missy M, Rn 08/22/18 10:16:57 08/22/18 10:16:57 08/22/18 10:16:57 Entry 4 Entry 5 Type Implant (Synthetic) Implant (Synthetic) Implant Log Implant Type Hardware Hardware Tissue Implant Type Implant PATELLA THIN BEAR VAN TIB DCM Identification [id number] Description Implant Quantity 1 1 Implant Site RIGHT KNEE RIGHT KNEE Implant Identification Model Number Implant Identification Serial Number Implant [id number] Identification Lot Number Implant Biomet Biomet Identification Entry Level Machine Operator Name: Implant [id number] Identification Catalog Number Implant Size Implant Has an Yes Yes Expiration Date Implant Expiration 07/24/23 06/12/23 Date Wasted Radioactive Material Time Implanted Tissue Implant Continue for Tissue Implant Documentation Tissue Identification Number Graft Prep Per Entry Level Machine Operator Instructions: Tissue Preparation Method: Reconstitution Solution: Reconstitution Solution Lot Number Reconstitution Solution Expiration Date: Thawing Solution Thawing Solution Lot Number Thawing Solution Expiration Date Preparation Materials, Other Preparation Materials, Other Lot Number Preparation Materials, Other Expiration Date Tissue Prepared/Processed By Entry Level Machine Operator Paperwork Completed Implant Type Comment Last Modified By: Yessi Ceron Rn Warner, Missy M, Rn 08/22/18 10:16:57 08/22/18 10:16:57 [facility] IntraOp Implant Log Audit 08/22/18 10:16:57 Retinal Surgeon: [id number] Modifier: [id number] <+> 1 Implant Identification Description <+> 1 Implant Identification Lot Number <+> 1 Implant Identification Entry Level Machine Operator Name: <+> 1 Implant Expiration Date <+> 1 Implant Identification Catalog Number <+> 2 Implant Identification Description <+> 2 Implant Identification Lot Number <+> 2 Implant Identification Entry Level Machine Operator Name: <+> 2 Implant Expiration Date <+> 2 Implant Identification Catalog Number <+> 3 Implant Identification Description <+> 3 Implant Identification Lot Number <+> 3 Implant Identification Entry Level Machine Operator Name: <+> 3 Implant Expiration Date <+> 3 Implant Identification Catalog Number <+> 4 Implant Identification Description <+> 4 Implant Identification Lot Number <+> 4 Implant Identification Entry Level Machine Operator Name: <+> 4 Implant Expiration Date <+> 4 Implant Identification Catalog Number <+> 5 Implant Identification Description <+> 5 Implant Identification Lot Number <+> 5 Implant Identification Entry Level Machine Operator Name: <+> 5 Implant Expiration Date <+> [...] hydrogen peroxide 3% - 1000MG/10 ML COCKTAIL-MICH [id number] Combo Med List Time Administered Route of TOPICALW/ 25ML NACL Administration Dose Dose 1000 Unit of Measure mg Volume 10 ML Administered By NIMO EPPS MD-ORT Procedure Irrigation Irrigant Volume In Irrigant Volume Out Last Modified By: Yessi Ceron Rn Warner, Missy M, Rn Yessi Ceron Rn 08/22/18 07:16:28 08/22/18 07:16:28 08/22/18 07:16:28 Entry 4 Medication/Irrigant vancomycin 1Gm vial - [id number] Combo Med List Time Administered Route of [...] [facility] IntraOp Skin Prep Audit 08/22/18 09:11:45 Retinal Surgeon: [id number] Modifier: [id number] 1 <*> Procedure Knee Total Joint Replacement [...] [facility] IntraOp Surgical Procedures Audit 08/22/18 11:15:07 Retinal Surgeon: [id number] Modifier: [id number] <+> 1 Stop 08/22/18 10:25:37 Retinal Surgeon: [id number] Modifier: [id number] <+> 1 Start [facility] IntraOp Temp Regulation [...] [facility] IntraOp Time Out Audit 08/22/18 09:12:12 Retinal Surgeon: [id number] Modifier: [id number] 1 <+> Time Out Pause Time 1 [...] 10:57:10 [facility] IntraOp Tourniquet Audit 08/22/18 10:57:10 Retinal Surgeon: [id number] Modifier: [id number] <+> 1 Stop Time 08/22/18 09:33:26 Retinal Surgeon: [id number] Modifier: [id number] 1 <*> Removed By JEANNE CASEY PAC 08/22/18 09:13:11 Retinal Surgeon: [id number] Modifier: [id number] <+> 1 Start Time Case Comments <None> Finalized By: Yessi Ceron Rn Document Signatures Signed By: Yessi Ceron Rn 08/22/18 11:15 documented in this encounter Plan of Treatment Not on file documented as of this encounter Visit Diagnoses Not on filedocumented in this encounter
--- OUTSIDE RECORDS SUMMARY | 2024-12-21 10:17 | XMS_ITS | Encounter Summary ---
Author Organization [employer] ([place], [place], [place], [place]) Address [address] [place] [address] Care Team Providers Care Collar Folder Operator Name Role Phone Unavailable Primary Care Provider Unavailabl e Encounter Details Date Type Department Care Team (Late st Contact Info) Description 07/12/2019 Transcribed Document [facility] [place] [facility] [place] [address] ProviderMariela MD [address] [place] [address] Social History Tobacco Use Types [...]
--- OUTSIDE RECORDS SUMMARY | 2024-12-21 10:17 | XMS_ITS | Encounter Summary ---
Author Organization [employer] ([place], [place], [place], [place]) Address [address] [place] [address] Care Team Providers Care Auto Parts Handler Name Role Phone Unavailable Primary Care Provider Unavailabl e Encounter Details Date Type Department Care Team (Late st Contact Info) Description 08/25/2020 Transcribed Document [facility] [place] [address] [place] [address] ProviderMariela MD [address] [place] [address] Social History Tobacco Use Types [...] 08/25/2020 16:44 EDT Electronically signed by Chantal [facility] Conversion Heavy Mobile Equipment Operator Cerbryce at 06/16/2022 8:29 PM CDT documented in this encounter Plan of Treatment Not on file documented as of this encounter Visit Diagnoses Not on filedocumented in this encounter
--- OUTSIDE RECORDS SUMMARY | 2024-12-21 10:17 | XMS_ITS | Encounter Summary ---
Author Organization [employer] ([place], [place], [place], [place]) Address [address] [place] [address] Care Team Providers Care Felt Hat Flanging Operator Name Role Phone Unavailable Primary Care Provider Unavailabl e Encounter Details Date Type Department Care Team (Late st Contact Info) Description 08/20/2020 Transcribed Document [facility] Family Medicine [facility] [place] [address] ProviderMariela MD [facility] [place] [address] Social History Tobacco Use Types [...] Mariela ProviderMD - 08/20/2020 4:09 PM CDT [facility] [place] PACU Summary Primary Physician: NIMO EPPS MD-ORT Finalized Date/Time: 08/20/20 20:56:16 Pt. Name: SOFIA GILL Eufemia Bal/Sex: 1940 Female Med Rec #: [id number] Physician: NIMO EPPS MD-ORT Financial #: [id number] Pt. Type: I Room/Bed: Admit/Disch: 08/20/20 04:48:00 - Institution: [facility] OR PACU Case Times Entry 1 In PACU I 08/20/20 20:23:00 Ready for PACU 08/20/20 20:56:00 Discharge Discharge from PACU 08/20/20 20:56:00 I Last Modified By: ROBERT Macdonald 08/20/20 20:56:09 [facility] Main OR PACU Case Times Audit 08/20/20 20:56:09 General Adjuster: [email or web address] Modifier: [email or web address] <+> 1 Ready for PACU Discharge <+> 1 Discharge from PACU I Finalized By: ROBERT Macdonald Document Signatures Signed By: ROBERT Macdonald 08/20/20 20:56 Electronically signed by Chantal [facility] Conversion Liqu[employer] Stores [employer] Supervisor Cerner at 06/16/2022 8:23 PM CDT documented in this encounter Plan of Treatment Not on file documented as of this encounter Visit Diagnoses Not on filedocumented in this encounter
--- OUTSIDE RECORDS SUMMARY | 2024-12-21 10:17 | XMS_ITS | Encounter Summary ---
Author Organization [employer] ([place], [place], [place], [place]) Address [address] [place] [address] Care Team Providers Care Railroad Auditor Name Role Phone Unavailable Primary Care Provider Unavailabl e Encounter Details Date Type Department Care Team (Late st Contact Info) Description 07/12/2019 Transcribed Document [facility] [place] [address] [place] [address] ProviderMariela MD [address] [place] [address] Social History Tobacco Use Types [...]
--- OUTSIDE RECORDS SUMMARY | 2024-12-21 10:17 | XMS_ITS | Encounter Summary ---
Author Organization [employer] ([place], [place], [place], [place]) Address [address] [place] [address] Care Team Providers Care Wood Web Weaving Machine Operator Name Role Phone Unavailable Primary Care Provider Unavailabl e Encounter Details Date Type Department Care Team (Late st Contact Info) Description 06/27/2019 Transcribed Document [facility] [place] [facility] [place] [address] ProviderMariela MD [address] [place] [address] Social History Tobacco Use Types Packs/Day [...] Patient with no fevers and moved to [facility] for rehab on ongoing iv abx, some [...] 26) ALB L 2.4 (JUN 26) Micro: [facility]: 06/15 [facility] Blood cultures positive for group [...] - wbc down and no fevers 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
--- OUTSIDE RECORDS SUMMARY | 2024-12-21 10:17 | XMS_ITS | Encounter Summary ---
Author Organization [employer] ([place], [place], [place], [place]) Address [address] [place] [address] Care Team Providers Care Forging Roll Operator Name Role Phone Unavailable Primary Care Provider Unavailabl e Encounter Details Date Type Department Care Team (Late st Contact Info) Description 08/25/2020 Transcribed Document [facility] Family Medicine [address] [place] [address] ProviderMariela MD [address] [place] [address] Social History Tobacco Use Types [...] 08/25/2020 5:28 EDT Electronically signed by Chantal [facility] Conversion Bobbin Cleaner Hand Min at 06/16/2022 8:28 PM CDT documented in this encounter Plan of Treatment Not on file documented as of this encounter Visit Diagnoses Not on filedocumented in this encounter
--- OUTSIDE RECORDS SUMMARY | 2024-12-21 10:17 | XMS_ITS | Encounter Summary ---
Author Organization [employer] ([place], [place], [place], [place]) Address [address] [place] [address] Care Team Providers Care Manager Photography Name Role Phone Unavailable Primary Care Provider Unavailabl e Encounter Details Date Type Department Care Team (Late st Contact Info) Description 08/25/2020 Transcribed Document [facility] [place] Family Medicine [facility] [place] [address] ProviderMariela MD [address] [place] [address] Social History Tobacco Use Types Packs/Day [...] EDT Chloraseptic Menthol 1.4% topical spray: 5 [place], Oral, [place], Q2H, PRN for Sore Throat, Routine, Start [...] EDT fluticasone 50 mcg/inh nasal spray: 2 [place], Nostrils Both, [place], BID, PRN for Allergies, Routine, Start 08/20/20 [...] Refill(s) fluticasone 50 mcg/inh nasal spray: 2 [place], Nostrils Both, [place], BID, PRN Allergies, 0 Refill(s) furosemide 40 [...] Oral, Daily fluticasone 0.05% nasal spray 2 [place], Nostrils Both, BID magnesium hydroxide 8% liq [...] Oral, Q4H phenol 1.4% throat spray 5 [place], Oral, Q2H senna 8.6 mg tab 8.6 mg 1 Tab, Oral, At Bedtime traZODone 50 mg tab 50 mg 1 Tab, Oral, At Bedtime Problem list: Medical Cardiac arrhythmia / SNOMED CT 1947035247 / Confirmed Cataract / SNOMED CT 5312928702 / Confirmed Chronic venous insufficiency / SNOMED CT 92178028 / Confirmed Constipation / SNOMED CT 633552788 / Confirmed Edema - BLE / SNOMED CT 891406066 / Confirmed History of obstructive sleep apnea / IMO [id number] / Confirmed HTN (hypertension) / SNOMED CT 8917702784 / Confirmed Hx: GERD (gastroesophageal reflux disease) / SNOMED CT 6579761819 / Confirmed Hypercholesteremia / SNOMED CT 29673765 / Confirmed Hypothyroid / SNOMED CT 505603828 / Confirmed Kidney cysts right / SNOMED CT 2221902779 / Confirmed Knee pain, bilateral / SNOMED CT 216183535 / Confirmed Lung abnormality right / SNOMED CT 9786200926 / Confirmed Murmur, cardiac / SNOMED CT 2922246508 / Confirmed Osteoarthritis / SNOMED CT 7461837548 / Confirmed Osteoporosis / SNOMED CT 136611406 / Confirmed Pain management / SNOMED CT 558825604 / Confirmed Redness bilateral lower legs / SNOMED CT 9936040444 / Confirmed Seasonal allergies / SNOMED CT 410118356 / Confirmed Shoulder pain, bilateral / SNOMED CT 4305758849 / Confirmed Sleep apnea / SNOMED CT 327889337 / Confirmed, Active Problems (21) Cardiac arrhythmia [...] % 24.3 % Lymph # 2.40 K/uL Frontier % 11.0 % Frontier # 1.09 K/uL HI Eos % 4.0 [...] Collect. Electronically signed by Maureen Cornejo Conversion Clinical Dietetic Technician Cerner at 06/16/2022 8:12 PM CDT documented in this encounter Plan of Treatment Not on file documented as of this encounter Visit Diagnoses Not on filedocumented in this encounter
--- OUTSIDE RECORDS SUMMARY | 2024-12-21 10:17 | XMS_ITS | Encounter Summary ---
Author Organization [employer] ([place], [place], [place], [place]) Address [address] [place] [address] Care Team Providers Care Olive Knocker Name Role Phone Unavailable Primary Care Provider Unavailabl e Encounter Details Date Type Department Care Team (Late st Contact Info) Description 08/20/2020 Transcribed Document [facility] [place] [address] [place] [address] ProviderMariela MD [address] [place] [address] Social History Tobacco Use Types [...] 08/20/2020 15:22 EDT Electronically signed by Chantal [facility] Conversion Film Producer Cerner at 06/16/2022 8:26 PM CDT documented in this encounter Plan of Treatment Not on file documented as of this encounter Visit Diagnoses Not on filedocumented in this encounter
--- OUTSIDE RECORDS SUMMARY | 2024-12-21 10:17 | XMS_ITS | Encounter Summary ---
Author Organization [employer] ([place], [place], [place], [place]) Address [address] [place] [address] Care Team Providers Care Addictions Therapist Name Role Phone Unavailable Primary Care Provider Unavailabl e Encounter Details Date Type Department Care Team (Late st Contact Info) Description 06/27/2019 Transcribed Document [facility] [place] [facility] [place] [address] ProviderMariela MD [address] [place] [address] Social History Tobacco Use Types Packs/Day [...] within reach RN/PCT Informed Comment : EDDIE joens to treat. Treatment End Time : 07/03/2019 [...] MIGDALIA TOBIN PTA - 07/03/2019 12:16 EDT Oyster Culturist Goals Mobility/Bed Mobility LTG PT Grid Goal [...] Anticipated Discharge to : Unit, rehabilitation, Unit, jail MIGDALIA TOBIN PTA - 07/03/2019 12:16 EDT Spray PT Charges WINDOW DRAPER PT Therap. Exercise 15 min-WINDOW DRAPER : 1 Gait Training Each 15 Min-WINDOW DRAPER : 1 MIGDALIA TOBIN PTA - 07/03/2019 12:16 EDT documented in this encounter Plan of Treatment Not on file documented as of this encounter Visit Diagnoses Not on filedocumented in this encounter
--- OUTSIDE RECORDS SUMMARY | 2024-12-21 10:17 | XMS_ITS | Encounter Summary ---
Author Organization [employer] ([place], [place], [place], [place]) Address [address] [address] Care Team Providers Care Gi Physician Name Role Phone Unavailable Primary Care Provider Unavailabl e Encounter Details Date Type Department Care Team (Late st Contact Info) Description 06/27/2019 Transcribed Document [facility] [place] [facility] [place] [address] ProviderMariela MD [facility] [place] [address] Social History Tobacco Use Types [...] Body Dressing Device Comment, OT : Given gore stitcher, states I've been through this before, I [...] way down- Min A, patient given leg inspector to assist with practice from full supine to sit. NILA RAMAN OTR/Bartolo 07/13/2019 13:50 EDT Plan of Care, OT OT Tx Plan/Goals Established w Patient : Yes NILA RAMAN OTR/Bartolo 07/13/2019 13:50 EDT Snf Goals, OT Bathing LTG Grid Goal #1 [...] Status : Goal met (Comment: Given leg inspector- Min A from full supine without device. [...] A to sit to EOB (given leg inspector for future attempts). Stood for toileting hygiene and donning gown. Ambulated out into hallway. with chair follow. Once back to room had long disscussion about ADls in room. Patient is very I at chair level and declines practice at bathing, dressing with AE. Patient given LH sponge and gore stitcher as she states she uses these at home. Left [facility] with needs in reach and call [...]
--- OUTSIDE RECORDS SUMMARY | 2024-12-21 10:17 | XMS_ITS | Encounter Summary ---
Author Organization [employer] ([place], [place], [place], [place]) Address [address] [place] [address] Care Team Providers Care Innersole Fitter Name Role Phone Unavailable Primary Care Provider Unavailabl e Encounter Details Date Type Department Care Team (Late st Contact Info) Description 08/20/2020 Transcribed Document [facility] [place] [facility] [place] [address] ProviderMariela MD [address] [place] [address] Social History [...] ANESTHESIA: Femoral nerve block, IPACK block, general. MOGUL OPERATOR: Brady. ESTIMATED BLOOD LOSS: Minimal. TOURNIQUET TIME: [...] the cast comes off at 3 months. /[id number] Riaz Saenz MD CC/AQ / CC / MODL /[id number] documented in this encounter Plan of Treatment Not on file documented as of this encounter Visit Diagnoses Not on filedocumented in this encounter
--- OUTSIDE RECORDS SUMMARY | 2024-12-21 10:17 | XMS_ITS | Encounter Summary ---
Author Organization [employer] ([place], [place], [place], [place]) Address [address] [place] [address] Care Team Providers Care Snuff Maker Name Role Phone Unavailable Primary Care Provider Unavailabl e Encounter Details Date Type Department Care Team (Late st Contact Info) Description 08/20/2020 Transcribed Document [facility] [place] [facility] [place] [address] ProviderMariela MD [place] [address] Social History Tobacco Use [...] Son Legal Guardian : No Support Person/Patient Funds Transfer Clerk : Yes Support Person/Pt Rep Name : Sam Lowe Contact Password : Keily Support Person/Pt Rep Contact Information : son (Sam) [phone] (Nancy Rust [phone] Want Family/Rep/Phys Notified of Admit : No Emergency Contact #1 : Sam Lowe Emergency Contact #1 Emergency Contact #1 Relationship : son Emergency Contact #2 : enrique lowe Emergency Contact #2 Phone Number : [phone] Emergency Contact #2 Relationship : son Information Obtained From : Patient Primary Language : Armenian Preferred Communication Mode : Verbal Communication Barrier : None Complaint Inspector Needed : No Currently Lactating : No [...] Level : 46 or > High Risk [place] Fall Interventions : Adequate lighting, Assistive devices [...] Source : Stated Height Entry Format : [place] Height, Feet : 5 ft(Converted to: 152 cm, 60 Inch) Height, Inches : 0 Inch(Converted to: 0 ft 0 Inch, 0.00 cm) Clinical Height : 152.4 cm Weight Source : Standing scale Weight Entry Format : [place] Clinical Dosing Weight : 90.91 kg Weight, Pounds : 200 lb Body Surface Area (BSA) : 1.87 m2 Body Mass Index : 39.1 kg/m2 (HI) [place] Body Weight : 45 kg Hannah Cardoso RN - 08/20/2020 21:31 EDT Infectious Disease History Has the patient ever been tested for COVID-19? : Yes, Patient stated results Negative Where was the COVID-19 Testing completed? : [facility] Where are the test results? [...] Hannah Cardoso RN - 08/20/2020 21:31 EDT [place] Suicide Severity Rating Scale (C-SSRS) CSSRS Past [...]
--- OUTSIDE RECORDS SUMMARY | 2024-12-21 10:17 | XMS_ITS | Encounter Summary ---
Author Organization [employer] ([place], [place], [place], [place]) Address [address] [place] [address] Care Team Providers Care High Pressure Cleaner Name Role Phone Unavailable Primary Care Provider Unavailabl e Encounter Details Date Type Department Care Team (Late st Contact Info) Description 08/25/[address] [facility] [place] Medicine [facility] [place] [address] ProviderMariela MD [facility] [place] [address] Social History Tobacco Use Types [...]
--- OUTSIDE RECORDS SUMMARY | 2024-12-21 10:17 | XMS_ITS | Encounter Summary ---
Author Organization [employer] ([place], [place], [place], [place]) Address [address] [place] [address] Care Team Providers Care Psych Therapist Name Role Phone Unavailable Primary Care Provider Unavailabl e Encounter Details Date Type Department Care Team (Late st Contact Info) Description 08/20/2020 Transcribed Document [facility] [place] Family [place] [facility] [place] [address] ProviderMariela MD [address] [place] [address] Social History Tobacco Use Types Packs/Day [...] 08/20/2020 21:15 EDT Electronically signed by Maureen Cornjeo Conversion Construction Plant Operator Cerbryce at 06/16/2022 8:24 PM CDT documented in this encounter Plan of Treatment Not on file documented as of this encounter Visit Diagnoses Not on filedocumented in this encounter
--- OUTSIDE RECORDS SUMMARY | 2024-12-21 10:17 | XMS_ITS | Encounter Summary ---
Author Organization [employer] ([place], [place], [place], [place]) Address [address] [place] [address] Care Team Providers Care Coverage Specialist Rn Name Role Phone Unavailable Primary Care Provider Unavailabl e Encounter Details Date Type Department Care Team (Late st Contact Info) Description 07/12/2019 Transcribed Document [facility] [place] [facility] [address] ProviderMariela MD [address] [place] [id number] Social History Tobacco Use Types Packs/Day Years [...] 0.9% 50 mL 2 Gram, IV Piggyback, [id number] cyanocobalamin 1,000 mcg tab 5,000 mcg 5 [...] Oral, Q4H fluticasone 0.05% nasal spray 2 [place], Nostrils Both, BID magnesium hydroxide 8% liq [...]
--- OUTSIDE RECORDS SUMMARY | 2024-12-21 10:17 | XMS_ITS | Encounter Summary ---
Author Organization [employer] ([place], [place], [place], [place]) Address [address] [place] [address] Care Team Providers Care Detailer Name Role Phone Unavailable Primary Care Provider Unavailabl e Encounter Details Date Type Department Care Team (Late st Contact Info) Description 07/12/2019 Transcribed Document [facility] [place] Medicine [facility] [place] [address] ProviderMariela MD [address] [place] [address] Social History Tobacco Use Types [...] - faxed clinical review the [facility] at [phone] to request approval for extended ltac services. Auth#[id number], awaiting approval. Care Management Note Report : [...] health and she has been to the [place] [facility] and [facility] in the past. She has the following equipment at home: wheel chair, walker, cane and shower chair. Her discharge plan is to go to rehab prior to returning home. PCP: Flavia MARQUEZ [address] [place] [phone] Squeegeer And Former: Dr. Shemar Barger [address] [phone] Clemente Del Rio MD - Rheumatology - [address] [place] [address] Preferences: Home Health: [facility]: no preferences DME: [facility] - [address], [place] [phone] Assisted: [facility] at [facility] facility: no preferences Will continue to monitor patient for anticipated discharge needs YOANNA ARAUJO RN - 06/29/19 08:30:20 Yoanna Araujo 06/29/2019 0830 received fax from [facility] with approval for extended ltac coverage with next clinical review due on 07/12/2019. Auth#[id number]. Will continue to follow for anticipated discharge needs. YOANNA ARAUJO RN - 06/28/19 08:35:06 Yoanna Araujo 06/28/2019 0830 Faxed clinical review to [facility] at to request approval for extended Ltac services. Auth#[id number]. Pending Approval. Documentation Status Complete : Yes YOANNA ARAUJO RN - 07/12/2019 8:38 EDT documented in this encounter Plan of Treatment Not on file documented as of this encounter Visit Diagnoses Not on filedocumented in this encounter
--- OUTSIDE RECORDS SUMMARY | 2024-12-21 10:17 | XMS_ITS | Encounter Summary ---
Author Organization [employer] ([place], [place], [place], [place]) Address [address] [place] [address] Care Team Providers Care Concrete Boom Pump Operator Name Role Phone Unavailable Primary Care Provider Unavailabl e Encounter Details Date Type Department Care Team (Late st Contact Info) Description 07/12/2019 Transcribed Document [facility] [place] [facility] [place] [address] ProviderMariela MD [address] [place], [place] [phone] Social History Tobacco Use Types Packs/Day Years [...] Management Note : 07/12/2019 Fax received from [facility] with approval for LTAC services with a request for updated discharge plans and clinical info to support needs if not discharged. Auth#[id number]. Clinical review or discharge summary to be faxed by 07/17/2019. Care Management Note Report : YOANNA ARAUJO RN - 07/12/19 08:39:48 Yoanna Araujo 07/12/2019 0830 - faxed clinical review the [facility] at [phone] to request approval for extended ltac services. Auth#[id number], awaiting approval. YOANNA ARAUJO RN - 06/29/19 [...] and she has been to the [place] [facility] and [facility] in the past. She has the following equipment at home: wheel chair, walker, cane and shower chair. Her discharge plan is to go to rehab prior to returning home. PCP: Flavia MARQUEZ [address] [place] [phone] Major Account Representative: Dr. Shemar Barger [address] [address] [address] Clemente Del Rio MD - Rheumatology - [address] [place] [address] Preferences: Home Health: [facility]: no preferences DME: [facility] - [address], [place] [phone] [facility] preferences Will continue to monitor patient for anticipated discharge needs YOANNA ARAUJO RN - 06/29/19 08:30:20 Yoanna Araujo 06/29/2019 0830 received fax from [facility] with approval for extended ltac coverage with next clinical review due on 07/12/2019. Auth#[id number]. Will continue to follow for anticipated discharge needs. YOANNA ARAUJO RN - 06/28/19 08:35:06 Yoanna Araujo 06/28/2019 0830 Faxed clinical review to [facility] at to request approval for extended Ltac services. Auth#[id number]. Pending Approval. Documentation Status Complete : СВЕТЛАНА Dick - 07/12/2019 12:15 EDT documented in this encounter Plan of Treatment Not on file documented as of this encounter Visit Diagnoses Not on filedocumented in this encounter
--- OUTSIDE RECORDS SUMMARY | 2024-12-21 10:17 | XMS_ITS | Encounter Summary ---
Author Organization [employer] ([place], [place], [place], [place]) Address [address] [place] [address] Care Team Providers Care Flight Agent Name Role Phone Unavailable Primary Care Provider Unavailabl e Encounter Details Date Type Department Care Team (Late st Contact Info) Description 06/26/2019 Transcribed Document [facility] [place] [facility] [place] [address] ProviderMariela MD [address] [place] [phone] Social History Tobacco Use Types Packs/Day Years [...] orthopedists: Fan Garcia M.D. Primary orthopedist : Raiz Saenz M.D. ID consult: Musa Cornejo M.D., [...] and hypotension then she was transferred to [facility] for higher level of care after she had blood cultures that revealed group B Streptococcus bacteremia. On arrival workup revealed an elevated pro-calcitonin, ESR, CRP, leukocytosis while on examination patient had left knee swelling and started empirically on IV antibiotics was vancomycin and Rocephin. She was seen by infectious disease on-call Dr. Corneoj and antibiotics were modified according to his recommendations to Rocephin 2 g IV daily. Then Dr. Tyrell Stock took over the care. Dr. Garcia, from [facility] orthopedics and the on-call orthopedist Did [...] 0.9% 50 mL 2 Gram, IV Piggyback, [id number] cyanocobalamin 1,000 mcg tab 5,000 mcg 5 [...] At Bedtime fluticasone 0.05% nasal spray 2 D Lo, Nostrils Both, BID LORazepam 2 mg/mL inj [...] Topical, Q1H phenol 1.4% throat spray 1 D Lo, Oral, Q2H potassium chloride 10 mEq 100 [...] % 24.4 % Lymph # 2.42 K/uL [place] % 8.7 % [place] # 0.86 K/uL HI Eos % 2.5 [...] Discharge: Start: 06/26/19 11:21:00 EDT, [facility] Diagnosis Chronic venous insufficiency - [...] Refill(s) fluticasone 50 mcg/inh nasal spray: 2 D Lo, Nostrils Both, D Lo, BID, PRN Allergies, 0 Refill(s) gabapentin 300 [...] mn Electronically signed by Maureen Cornejo Conversion Necktie Centralizing Machine Operator Cerner at 06/16/2022 8:25 PM CDT documented in this encounter Plan of Treatment Not on file documented as of this encounter Visit Diagnoses Not on filedocumented in this encounter
--- OUTSIDE RECORDS SUMMARY | 2024-12-21 10:17 | XMS_ITS | Encounter Summary ---
Author Organization [employer] ([place], [place], [place], [place]) Address [address] [place] [address] Care Team Providers Care Instructional Technology Instructor Name Role Phone Unavailable Primary Care Provider Unavailabl e Encounter Details Date Type Department Care Team (Late st Contact Info) Description 06/26/2019 Transcribed Document [facility] Family Medicine [facility] [place] [address] ProviderMariela MD [address] [place] [address] Social History Tobacco Use Types Packs/Day Years [...] EDT Electronically signed by Maureen Cornejo Conversion Web Applications Administrator Cerner at 06/16/2022 8:30 PM CDT documented in this encounter Plan of Treatment Not on file documented as of this encounter Visit Diagnoses Not on filedocumented in this encounter
--- OUTSIDE RECORDS SUMMARY | 2024-12-21 10:17 | XMS_ITS | Encounter Summary ---
Author Organization [employer] ([place], [place], [place], [place]) Address [address] [place] [address] Care Team Providers Care Minister Name Role Phone Unavailable Primary Care Provider Unavailabl e Encounter Details Date Type Department Care Team (Late st Contact Info) Description 06/26/2019 Transcribed Document [facility] [place] Family Medicine [facility] [place] [address] ProviderMariela MD [facility] [place] [phone] Social History Tobacco Use Types Packs/Day Years [...] Discharged from hospital Discharged to, Therapy : [facility] ([facility]) Discharge Summary Comment, PT : 0/3 acute PT goals met - did not progress as expected. Mod A x 2 supine to sit Mod A x 2 sit to stand Able to take a few steps with RWx bed to chair with Mod A x 2 Brace on L LE D/C to LTACH at [facility] for continued care and rehab on 06/26/19. [...]
--- OUTSIDE RECORDS SUMMARY | 2024-12-21 10:18 | XMS_ITS | Encounter Summary ---
Author Organization [employer] ([place], [place], [place], [place]) Address [address] [place] [address] Care Team Providers Care Web Designer Name Role Phone Unavailable Primary Care Provider Unavailabl e Encounter Details Date Type Department Care Team (Late st Contact Info) Description 08/23/2018 Transcribed Document [facility] [place] [facility] [address] ProviderMariela MD [address] [place] [address] Social History Tobacco Use Types [...] 08/23/2018 9:50 EDT by Jett Arroyo Mkt Degreasing Wheel Operator-Utilization Mgt Primary Insurance Authorization Authorization and Policy Numbers : Insurance 1 Health Plan: [facility] MEDICARE ADVANTAGE Policy Number: [id number] Authorization Number: Insurance Primary Name : [facility] medicare advantage [id number] Authorization Status-Primary : Awaiting callback Reference Number-Primary : [id number] Authorized Service Begin Date-Primary : 08/22/2018 EDT Authorization Comments-Primary : Clinicals faxed to [facility] via Min Historical Authorization Comments-Primary : No Authorization Comments Found Jett Arroyo Mkt Degreasing Wheel Operator-Utilization Mgt - 08/23/2018 9:50 EDT documented in this encounter Plan of Treatment Not on file documented as of this encounter Visit Diagnoses Not on filedocumented in this encounter
--- OUTSIDE RECORDS SUMMARY | 2024-12-21 10:18 | XMS_ITS | Encounter Summary ---
Author Organization [employer] ([place], [place], [place], [place]) Address [address] [place] [address] Care Team Providers Care Hotel Front Desk Agent Name Role Phone Unavailable Primary Care Provider Unavailabl e Encounter Details Date Type Department Care Team (Late st Contact Info) Description 06/27/2019 Transcribed Document [facility] [place] [address] [place] [address] ProviderMariela MD [address] [place] [phone] Social History Tobacco Use Types Packs/Day Years [...]
--- OUTSIDE RECORDS SUMMARY | 2024-12-21 10:18 | XMS_ITS | Encounter Summary ---
Author Organization [employer] ([place], [place], [place], [place]) Address [address] [place] [address] Care Team Providers Care Affirmative Action Officer Name Role Phone Unavailable Primary Care Provider Unavailabl e Encounter Details Date Type Department Care Team (Late st Contact Info) Description 08/23/2018 Transcribed Document [facility] [place] Family Medicine [facility] [place] [address] ProviderMariela MD [address] [place] [address] Social History Tobacco Use Types Packs/Day Years [...] Historical ProviderMD - 08/23/2018 2:00 AM CDT Epidemiology Intern Details Entered On: 08/23/2018 1:22 EDT Performed [...]
--- OUTSIDE RECORDS SUMMARY | 2024-12-21 10:18 | XMS_ITS | Encounter Summary ---
Author Organization [employer] ([place], [place], [place], [place]) Address [address] [address] Care Team Providers Care Cyber Security Consultant Name Role Phone Unavailable Primary Care Provider Unavailabl e Encounter Details Date Type Department Care Team (Late st Contact Info) Description 08/23/2018 Transcribed Document [facility] [place] Family Medicine [facility] [place] [address] ProviderMariela MD [address] [place] [address] Social History Tobacco Use Types [...] Barley. Bulgur wheat. Millet. Bran muffins. Popcorn. [place] wafer crackers. ?? Vegetables Sweet potatoes. Spinach. Kale. Artichokes. Cabbage. Broccoli. Green peas. Carrots. Squash. ?? Fruits Berries. Pears. Apples. Oranges. Avocados. Prunes and raisins. Dried figs. ?? Meats and Other Protein Sources [place], kidney, call, and soy beans. Split peas. [...] gray has 11 g of protein. ?? [place] seeds ??? 1 oz has 5.5 g [...] floor. ?? Place frequently used items in ckvh-hy-bsbef places ?? Keep electrical cables out of [...] ? Using the bathroom. ? Using household merchandising specialist or toxic chemicals. ? Touching or [...]
--- OUTSIDE RECORDS SUMMARY | 2024-12-21 10:18 | XMS_ITS | Encounter Summary ---
Author Organization [employer] ([place], [place], [place], [place]) Address [address] [place] [address] Care Team Providers Care Home Service Director Name Role Phone Unavailable Primary Care Provider Unavailabl e Encounter Details Date Type Department Care Team (Late st Contact Info) Description 07/12/2019 Transcribed Document [facility] [place] Family Medicine [facility] [place] [address] ProviderMariela MD [address] [place] [address] Social History Tobacco Use Types Packs/Day Years [...]
--- OUTSIDE RECORDS SUMMARY | 2024-12-21 10:18 | XMS_ITS | Encounter Summary ---
Author Organization [employer] ([place], [place], [place], [place]) Address [address] [place] [address] Care Team Providers Care Parer Name Role Phone Unavailable Primary Care Provider Unavailabl e Encounter Details Date Type Department Care Team (Late st Contact Info) Description 08/25/2020 Transcribed Document [facility] [place] [facility] [place] [address] ProviderMariela MD [place] [address] Social History Tobacco Use [...] Historical ProviderMD - 08/25/2020 2:00 AM CDT [employer] Details Entered On: 08/25/2020 1:31 EDT Performed [...] Electronically signed by Maureen Cornejo Conversion Clay Dry Press Mixer Operator Cerner at 06/16/2022 8:04 PM CDT documented in this encounter Plan of Treatment Not on file documented as of this encounter Visit Diagnoses Not on filedocumented in this encounter
--- OUTSIDE RECORDS SUMMARY | 2024-12-21 10:18 | XMS_ITS | Encounter Summary ---
Author Organization [employer] ([place], [place], [place], [place]) Address [address] [place] [address] Care Team Providers Care Heavy Equipment Operator Name Role Phone Unavailable Primary Care Provider Unavailabl e Encounter Details Date Type Department Care Team (Late st Contact Info) Description 08/20/2020 Transcribed Document [facility] [place] [facility] [place] [address] ProviderMariela MD [facility] [place] [address] Social History Tobacco Use Types [...] On: 08/20/2020 14:56 EDT by THIERRY GOODRICH core winder Documentation Time Out Pause Time : 08/20/2020 [...] Procedure Case Attendee Role 3 : RN Adult Protective Caseworker Procedure Case Attendee 3 : THIERRY GOODRICH RN Procedure Case Attendee Role 4 : Observer Procedure Case Attendee 4 : Bridget Jauregui RN ELDER, JEAN M RN - 08/20/2020 14:56 EDT documented in this encounter Plan of Treatment Not on file documented as of this encounter Visit Diagnoses Not on filedocumented in this encounter
--- OUTSIDE RECORDS SUMMARY | 2024-12-21 10:18 | XMS_ITS | Encounter Summary ---
Author Organization [employer] ([place], [place], [place], [place]) Address [address] [place] [address] Care Team Providers Care Vacation Planner Name Role Phone Unavailable Primary Care Provider Unavailabl e Encounter Details Date Type Department Care Team (Late st Contact Info) Description 06/27/2019 Transcribed Document [facility] [place] [facility] [place] [address] ProviderMariela MD [address] [place] [address] Social History Tobacco Use Types [...] Dear : Alannah Date / Time: 06/27/2019 4197 Please exercise your independent, professional judgment in responding to the clarification form. 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 Stock 06/27/2019 PN [ ] [ ] [ ] CDS/Exhibit Preparator Signature: __[email or web address] Date/Time: 06/27/2019 1454 This is a permanent part of the Medical Record Q7 2019 [facility] Updated: documented in this encounter Plan of Treatment Not on file documented as of this encounter Visit Diagnoses Not on filedocumented in this encounter
--- OUTSIDE RECORDS SUMMARY | 2024-12-21 10:18 | XMS_ITS | Encounter Summary ---
Author Organization [employer] ([place], [place], [place], [place]) Address [address] [place] [address] Care Team Providers Care Financial Services Agent Name Role Phone Unavailable Primary Care Provider Unavailabl e Encounter Details Date Type Department Care Team (Late st Contact Info) Description 06/27/2019 Transcribed Document [facility] [place] Family Medicine [address] [place] [address] ProviderMariela MD [address] [place] [address] Social History Tobacco Use Types Packs/Day Years [...] CDT CareSet Drug Regimen Review, [facility] Entered On: 06/27/2019 9:39 EDT Performed On: [...] 06/27/2019 9:37 EDT Electronically signed by Chantal [facility] Conversion Bulwark Carpenter Cerner at 06/16/2022 8:23 PM CDT documented in this encounter Plan of Treatment Not on file documented as of this encounter Visit Diagnoses Not on filedocumented in this encounter
--- OUTSIDE RECORDS SUMMARY | 2024-12-21 10:18 | XMS_ITS | Encounter Summary ---
Author Organization [employer] ([place], [place], [place], [place]) Address [address] [place] [address] Care Team Providers Care Crimping Press Operator Name Role Phone Unavailable Primary Care Provider Unavailabl e Encounter Details Date Type Department Care Team (Late st Contact Info) Description 08/23/2018 Transcribed Document [facility] [place] [address] [place] [address] ProviderMariela MD [address] [place], [place] [phone] Social History Tobacco Use Types Packs/Day Years [...]
--- OUTSIDE RECORDS SUMMARY | 2024-12-21 10:18 | XMS_ITS | Encounter Summary ---
Author Organization [employer] ([place], [place], [place], [place]) Address [address] [place] [address] Care Team Providers Care Artist'S Model Name Role Phone Unavailable Primary Care Provider Unavailabl e Encounter Details Date Type Department Care Team (Late st Contact Info) Description 07/12/2019 Transcribed Document [facility] [place] Family Medicine [address] [place] [address] ProviderMariela MD [address] [place], [place] [phone] Social History Tobacco Use Types Packs/Day Years [...] 07/12/2019 4:38 EDT Electronically signed by Chantal [facility] Conversion Psychologist Developmental Min at 06/16/2022 8:02 PM CDT documented in this encounter Plan of Treatment Not on file documented as of this encounter Visit Diagnoses Not on filedocumented in this encounter
--- OUTSIDE RECORDS SUMMARY | 2024-12-21 10:18 | XMS_ITS | Encounter Summary ---
Author Organization [employer] ([place], [place], [place], [place]) Address [address] [place] [address] Care Team Providers Care Flooring Installer Name Role Phone Unavailable Primary Care Provider Unavailabl e Encounter Details Date Type Department Care Team (Late st Contact Info) Description 06/26/2019 Transcribed Document [facility] [place] Medicine [facility] [place] [address] ProviderMariela MD [address] [place], [place] [phone] Social History Tobacco Use Types Packs/Day Years [...] Historical ProviderMD - 06/26/2019 2:00 AM CDT Insole Taper Details Entered On: 06/26/2019 3:07 EDT Performed [...] 06/26/2019 3:07 EDT Electronically signed by Chantal [facility] Conversion Project Drilling Engineer Cerner at 06/16/2022 8:24 PM CDT documented in this encounter Plan of Treatment Not on file documented as of this encounter Visit Diagnoses Not on filedocumented in this encounter
--- OUTSIDE RECORDS SUMMARY | 2024-12-21 10:18 | XMS_ITS | Encounter Summary ---
Author Organization [employer] ([place], [place], [place], [place]) Address [address] [place] [address] Care Team Providers Care Home Designer Name Role Phone Unavailable Primary Care Provider Unavailabl e Encounter Details Date Type Department Care Team (Late st Contact Info) Description 08/23/2018 Transcribed Document [facility] [place] [facility] [place] [address] ProviderMariela MD [address] [place] [phone] Social History Tobacco Use Types Packs/Day Years [...]
--- OUTSIDE RECORDS SUMMARY | 2024-12-21 10:18 | XMS_ITS | Encounter Summary ---
Author Organization [employer] ([place], [place], [place], [place]) Address [address] [place] [address] Care Team Providers Care Desulfurizer Machine Name Role Phone Unavailable Primary Care Provider Unavailabl e Encounter Details Date Type Department Care Team (Late st Contact Info) Description 08/25/2020 Transcribed Document [facility] [place] [facility] [place] [address] ProviderMariela MD [facility] [place] [address] Social History Tobacco Use Types [...] form. Electronically signed by Maureen Cornejo Conversion Recycling Collections Driver Cerner at 06/16/2022 8:03 PM CDT documented in this encounter Plan of Treatment Not on file documented as of this encounter Visit Diagnoses Not on filedocumented in this encounter
--- OUTSIDE RECORDS SUMMARY | 2024-12-21 10:18 | XMS_ITS | Encounter Summary ---
Author Organization [employer] ([place], [place], [place], [place]) Address [address] [place] [address] Care Team Providers Care Coagulating Bath Mixer Name Role Phone Unavailable Primary Care Provider Unavailabl e Encounter Details Date Type Department Care Team (Late st Contact Info) Description 07/12/2019 Transcribed Document [facility] [place] [facility] [place] [address] ProviderMariela MD [address] [place] [phone] Social History Tobacco Use Types Packs/Day Years [...]
--- OUTSIDE RECORDS SUMMARY | 2024-12-21 10:18 | XMS_ITS | Encounter Summary ---
Author Organization [employer] ([place], [place], [place], [place]) Address [address] [place] [address] Care Team Providers Care Emergency Care Tech Name Role Phone Unavailable Primary Care Provider Unavailabl e Encounter Details Date Type Department Care Team (Late st Contact Info) Description 08/20/[address] [facility] [place] Family Medicine [facility] [place] [address] ProviderMariela MD [facility] [place] [address] Social History Tobacco Use Types [...]
--- OUTSIDE RECORDS SUMMARY | 2024-12-21 10:18 | XMS_ITS | Encounter Summary ---
Author Organization [employer] ([place], [place], [place], [place]) Address [address] [place] [address] Care Team Providers Care Contract Preparer Name Role Phone Unavailable Primary Care Provider Unavailabl e Encounter Details Date Type Department Care Team (Late st Contact Info) Description 08/23/2018 Transcribed Document [facility] [place] [facility] [place] [address] ProviderMariela MD [address] [place] [address] Social History Tobacco Use Types Packs/Day Years [...] EDT Electronically signed by Maureen Cornejo Conversion Application Support Technician Cerbryce at 06/16/2022 8:12 PM CDT documented in this encounter Plan of Treatment Not on file documented as of this encounter Visit Diagnoses Not on filedocumented in this encounter
--- OUTSIDE RECORDS SUMMARY | 2024-12-21 10:18 | XMS_ITS | Encounter Summary ---
Author Organization [employer] ([place], [place], [place], [place]) Address [address] [place] [address] Care Team Providers Care Insurance Appraiser Name Role Phone Unavailable Primary Care Provider Unavailabl e Encounter Details Date Type Department Care Team (Late st Contact Info) Description 08/20/2020 Transcribed Document [facility] [place] Medicine [facility] [place] [address] ProviderMariela MD [address] [place] [address] Social History Tobacco Use Types Packs/Day [...] Source : Stated Height Entry Format : Shannon Height, Feet : 5 ft(Converted to: 152 cm, 60 Inch) Height, Inches : 0 Inch(Converted to: 0 ft 0 Inch, 0.00 cm) Clinical Height : 152.4 cm Weight Source : Standing scale Weight Entry Format : Shannon Clinical Dosing Weight : 90.91 kg Weight, Pounds : 200 lb Body Surface Area (BSA) : 1.87 m2 Body Mass Index : 39.1 kg/m2 ([place]) [place] Body Weight : 45 kg THIERRY GOODRICH [...] was the COVID-19 Testing completed? : [facility] Where are the test results? : Paper Copy on chart Date of COVID-19 test known? : Yes Date of COVID-19 Test : 08/16/2020 EDT THIERRY OGODRICH RN - 08/20/2020 15:27 EDT Has the [...] THIERRY GOODRICH RN - 08/20/2020 15:27 EDT [place] Suicide Severity Rating Scale (C-SSRS) CSSRS Past [...] Son Legal Guardian : No Support Person/Patient Applied Marine Physics Professor : Yes Support Person/Pt Rep Name : Sam Barlow Contact Password : Keily Support Person/Pt Rep Contact Information : son (Sam) [phone] (Nancy Rust [phone] Want Family/Rep/Phys Notified of Admit : No Emergency Contact #1 : Sam Barlow Emergency Contact #1 Emergency Contact #1 Relationship : son Emergency Contact #2 : - Emergency Contact #2 Phone Number : - Emergency Contact #2 Relationship : - Information Obtained From : Patient Primary Language : Lao Preferred Communication Mode : Verbal Communication Barrier : None Oracle Iam Consultant Needed : No Currently Lactating : No [...] form. Electronically signed by Maureen Cornejo Conversion Neuro Psych Sales Specialist Cerner at 06/16/2022 8:20 PM CDT documented in this encounter Plan of Treatment Not on file documented as of this encounter Visit Diagnoses Not on filedocumented in this encounter
--- OUTSIDE RECORDS SUMMARY | 2024-12-21 10:18 | XMS_ITS | Encounter Summary ---
Author Organization [employer] ([place], [place], [place]) Address [address] [place] [address] Care Team Providers Care Hall Director Name Role Phone Unavailable Primary Care Provider Unavailabl e Encounter Details Date Type Department Care Team (Late st Contact Info) Description 08/20/2020 Transcribed Document [facility] Family Medicine [facility] [place] [address] ProviderMariela MD [address] [place] [address] Social History Tobacco Use [...]
--- OUTSIDE RECORDS SUMMARY | 2024-12-21 10:18 | XMS_ITS | Encounter Summary ---
Author Organization [employer] ([place], [place], [place], [place]) Address [address] [place] [address] Care Team Providers Care Candy Cutter Machine Name Role Phone Unavailable Primary Care Provider Unavailabl e Encounter Details Date Type Department Care Team (Late st Contact Info) Description 08/20/2020 Transcribed Document [facility] [place] [facility] [place] [address] ProviderMariela MD [address] [place] [address] Social History Tobacco Use Types [...] times , pt attempts to use leg oxygen plant operator to assist RLE to EOB and cues [...] EDIN DRAKE OTR/L - 08/21/2020 13:24 EDT Psych Rn Goals, OT Other LTG Grid Goal #1 [...]
--- OUTSIDE RECORDS SUMMARY | 2024-12-21 10:19 | XMS_ITS | Encounter Summary ---
Author Organization [employer] ([place], [place], [place], [place]) Address [address] [place] [address] Care Team Providers Care Gauge Machine Operator Name Role Phone Unavailable Primary Care Provider Unavailabl e Encounter Details Date Type Department Care Team (Late st Contact Info) Description 07/14/2019 Transcribed Document [facility] [place] [facility] [place] [facility] [place] [address] ProviderMariela MD [address] [place] [address] Social History Tobacco Use Types Packs/Day Years [...] Historical ProviderMD - 07/14/2019 2:00 AM CDT Marine Pilot Details Entered On: 07/14/2019 7:20 EDT Performed [...]
--- OUTSIDE RECORDS SUMMARY | 2024-12-21 10:19 | XMS_ITS | Encounter Summary ---
Author Organization [employer] ([place], [place], [place], [place]) Address [address] [place] [address] Care Team Providers Care Powder Operator Name Role Phone Unavailable Primary Care Provider Unavailabl e Encounter Details Date Type Department Care Team (Late st Contact Info) Description 07/05/2019 Transcribed Document [facility] [place] [facility] [place] [address] ProviderMariela MD [address] [place] [phone] Social History Tobacco Use Types Packs/Day Years [...] 0.9% 50 mL 2 Gram, IV Piggyback, [id number] cyanocobalamin 1,000 mcg tab 5,000 mcg 5 [...] fluticasone 0.05% nasal spray 100 mcg 2 [place], Nostrils Both, BID magnesium hydroxide 8% liq [...] 15.8 % LOW Lymph # 1.25 x10(3)/uL Tripp % 11.3 % HI Tripp # 0.89 K/uL Eos % 2.3 % [...]
--- OUTSIDE RECORDS SUMMARY | 2024-12-21 10:19 | XMS_ITS | Encounter Summary ---
Author Organization [employer] ([place], [place], [place], [place]) Address [address] [place] [address] Care Team Providers Care Extrusion Operator Name Role Phone Unavailable Primary Care Provider Unavailabl e Encounter Details Date Type Department Care Team (Late st Contact Info) Description 08/23/2018 Transcribed Document [facility] [place] [facility] [place] [address] ProviderMariela MD [address] [place] [address] Social History Tobacco Use Types Packs/Day [...] 08/23/2018 11:44 EDT Electronically signed by Chantal [facility] Conversion Buyer Assistant Cerner at 06/16/2022 8:15 PM CDT documented in this encounter Plan of Treatment Not on file documented as of this encounter Visit Diagnoses Not on filedocumented in this encounter
--- OUTSIDE RECORDS SUMMARY | 2024-12-21 10:19 | XMS_ITS | Encounter Summary ---
Author Organization [employer] ([place], [place], [place], [place]) Address [address] [place] [address] Care Team Providers Care Drum Drier Name Role Phone Unavailable Primary Care Provider Unavailabl e Encounter Details Date Type Department Care Team (Late st Contact Info) Description 06/19/2019 Transcribed Document [facility] [place] Medicine [facility] [place] [address] ProviderMariela MD [address] [place], [place] [phone] Social History Tobacco Use Types Packs/Day Years [...] [facility] MEDICARE ADVANTAGE Policy Number: [id number] Authorization Number: Insurance Primary Name : [facility] MEDICARE ADVANTAGE Policy Number: [id number] Authorization Status-Primary : Pending clinicals Reference Number-Primary : [id number] Authorized Service Begin Date-Primary : 06/16/2019 EDT Historical Authorization Comments-Primary : Comment 1: Attempted auth on [facility] portal, message that notification cannot be completed online, Call number on back of card (Michelle Jimenez Rn-Utilization Review 06/17/2019 10:02) TIESHA AQUINO RN-Utilization Review - 06/19/2019 9:28 EDT Electronically signed by Chantal, [facility] Conversion Senior Care Provider Cerner at 06/16/2022 8:15 PM CDT documented in this encounter Plan of Treatment Not on file documented as of this encounter Visit Diagnoses Not on filedocumented in this encounter
--- OUTSIDE RECORDS SUMMARY | 2024-12-21 10:19 | XMS_ITS | Encounter Summary ---
Author Organization [facility] ([place], [place], [place], [place]) Address [address] [place] [address] Care Team Providers Care Guard Museum Name Role Phone Unavailable Primary Care Provider Unavailabl e Encounter Details Date Type Department Care Team (Late st Contact Info) Description 07/05/2019 Transcribed Document [facility] [place] [address] ProviderMariela MD [address] [place] [address] Social History Tobacco Use Types Packs/Day Years [...] Historical ProviderMD - 07/05/2019 2:00 AM CDT Income Tax Manager Details Entered On: 07/05/2019 4:03 EDT Performed [...] 07/05/2019 3:56 EDT Electronically signed by Chantal [facility] Conversion Neurodiagnostic Technologist Cerner at 06/16/2022 8:15 PM CDT documented in this encounter Plan of Treatment Not on file documented as of this encounter Visit Diagnoses Not on filedocumented in this encounter
--- OUTSIDE RECORDS SUMMARY | 2024-12-21 10:19 | XMS_ITS | Encounter Summary ---
Author Organization [employer] ([place], [place], [place], [place]) Address [address] [place] [address] Care Team Providers Care Textile Machine Mechanic Name Role Phone Unavailable Primary Care Provider Unavailabl e Encounter Details Date Type Department Care Team (Late st Contact Info) Description 06/30/2019 Transcribed Document [facility] [place] [facility] [place] [address] ProviderMariela MD [address] [place] [address] Social History Tobacco Use Types Packs/Day [...] Mccormick, Pharmacist-Resident HPI: 06/15 Pt admitted [place] [facility] [place] [facility] with infected L-TKA with chronic extensor [...] Rx to follow, Neelam Mccormick, PharmD # [phone] Electronically signed by Chantal, [facility] Conversion Biofuels Plant Manager Cerner at 06/16/2022 8:05 PM CDT documented in this encounter Plan of Treatment Not on file documented as of this encounter Visit Diagnoses Not on filedocumented in this encounter
--- OUTSIDE RECORDS SUMMARY | 2024-12-21 10:19 | XMS_ITS | Encounter Summary ---
Author Organization [employer] ([place], [place], [place], [place]) Address [address] [place] [address] Care Team Providers Care Outside Parts Sales Name Role Phone Unavailable Primary Care Provider Unavailabl e Encounter Details Date Type Department Care Team (Late st Contact Info) Description 07/04/2019 Transcribed Document [facility] [place] Family Medicine [address] [place] [address] ProviderMariela MD [address] [place], [place] [phone] Social History Tobacco Use Types Packs/Day Years [...] 07/04/2019 3:10 EDT Electronically signed by Chantal [facility] Conversion Conductor And Engineer Min at 06/16/2022 8:23 PM CDT documented in this encounter Plan of Treatment Not on file documented as of this encounter Visit Diagnoses Not on filedocumented in this encounter
--- OUTSIDE RECORDS SUMMARY | 2024-12-21 10:19 | XMS_ITS | Encounter Summary ---
Author Organization [facility] ([place], [place], [place]) Address [address] [place] [address] Care Team Providers Care Complaint Evaluation Officer Name Role Phone Unavailable Primary Care Provider Unavailabl e Encounter Details Date Type Department Care Team (Late st Contact Info) Description 06/19/2019 Transcribed Document [facility] [place] [facility] [place] [address] ProviderMariela MD [address] [place] [address] Social History Tobacco Use Types Packs/Day Years [...]
--- OUTSIDE RECORDS SUMMARY | 2024-12-21 10:19 | XMS_ITS | Encounter Summary ---
Author Organization [employer] ([place], [place], [place], [place]) Address [address] [place] [address] Care Team Providers Care Service Member Name Role Phone Unavailable Primary Care Provider Unavailabl e Encounter Details Date Type Department Care Team (Late st Contact Info) Description 07/04/2019 Transcribed Document [facility] [place] [facility] [place] [address] ProviderMariela MD [address] [place] [address] Social History Tobacco Use Types Packs/Day [...] PharmD, BCPS HPI: 06/15 Pt admitted to [facility] [place] with infected L-TKA with chronic extensor rupture, [...]
--- OUTSIDE RECORDS SUMMARY | 2024-12-21 10:19 | XMS_ITS | Encounter Summary ---
Author Organization [employer] ([place], [place], [place], [place]) Address [address] [place] [address] Care Team Providers Care Orchard Hand Name Role Phone Unavailable Primary Care Provider Unavailabl e Encounter Details Date Type Department Care Team (Late st Contact Info) Description 06/30/2019 Transcribed Document [facility] [place] [facility] [place] [address] ProviderMariela MD [address] [place] [address] Social History Tobacco Use Types Packs/Day [...] that oxycodone is not helping her pain ???[place] was added to Nucynta Review of Systems [...] 0.9% 50 mL 2 Gram, IV Piggyback, [id number] cyanocobalamin 1,000 mcg tab 5,000 mcg 5 [...] fluticasone 0.05% nasal spray 100 mcg 2 [place], Nostrils Both, BID magnesium hydroxide 8% liq [...] Stress ulcer prophylaxis. Will switch patient to [place] one Nucynta control her pain. documented in this encounter Plan of Treatment Not on file documented as of this encounter Visit Diagnoses Not on filedocumented in this encounter
--- OUTSIDE RECORDS SUMMARY | 2024-12-21 10:19 | XMS_ITS | Encounter Summary ---
Author Organization [employer] ([place], [place], [place], [place]) Address [address] [place] [address] Care Team Providers Care Editor Farm Journal Name Role Phone Unavailable Primary Care Provider Unavailabl e Encounter Details Date Type Department Care Team (Late st Contact Info) Description 07/05/2019 Transcribed Document [facility] Radiology [address] [place] [address] Jordan Barahona MD [address] [phone] Social History Tobacco Use Types Packs/Day Years [...] (JULY 02) L 2.4 (JUN 26) Micro: [facility]: 06/15 Psychiatric Blood cultures positive for group B strep [...]
--- OUTSIDE RECORDS SUMMARY | 2024-12-21 10:19 | XMS_ITS | Encounter Summary ---
Author Organization [employer] ([place], [place], [place], [place]) Address [address] [place] [address] Care Team Providers Care Digital Sales Representative Name Role Phone Unavailable Primary Care Provider Unavailabl e Encounter Details Date Type Department Care Team (Late st Contact Info) Description 07/04/2019 Transcribed Document [facility] [place] Family Medicine [facility] [place] [address] ProviderMariela MD [address] [place] [phone] Social History Tobacco Use Types Packs/Day Years [...] 0.9% 50 mL 2 Gram, IV Piggyback, [id number] cyanocobalamin 1,000 mcg tab 5,000 mcg 5 [...] fluticasone 0.05% nasal spray 100 mcg 2 [place], Nostrils Both, BID magnesium hydroxide 8% liq [...] 15.8 % LOW Lymph # 1.25 x10(3)/uL Mercer % 11.3 % HI Mercer # 0.89 K/uL Eos % 2.3 % [...] % 22.6 % Lymph # 1.63 x10(3)/uL Mercer % 13.7 % HI Mercer # 0.99 K/uL Eos % 2.9 % [...] precautions. IV albumin infusion followed by diuresis. Electronically signed by Maureen Cornejo Conversion Chlorobutadiene Scrubber Operator Cerner at 06/16/2022 8:10 PM CDT documented in this encounter Plan of Treatment Not on file documented as of this encounter Visit Diagnoses Not on filedocumented in this encounter
--- OUTSIDE RECORDS SUMMARY | 2024-12-21 10:19 | XMS_ITS | Encounter Summary ---
Author Organization [employer] ([place], [place], [place], [place]) Address [address] [place] [address] Care Team Providers Care Firer Diesel Locomotive Name Role Phone Unavailable Primary Care Provider Unavailabl e Encounter Details Date Type Department Care Team (Late st Contact Info) Description 06/19/2019 Transcribed Document [facility] [place] [facility] [place] [address] ProviderMariela MD [address] [place] [address] Social History Tobacco Use Types Packs/Day [...] L 2.0 (JUN 16) Micro: [facility]: 06/15 [facility] Blood cultures positive [...]
--- OUTSIDE RECORDS SUMMARY | 2024-12-21 10:19 | XMS_ITS | Encounter Summary ---
Author Organization [employer] ([place], [place], [place], [place]) Address [address] [place] [address] Care Team Providers Care Manager Infrastructure Name Role Phone Unavailable Primary Care Provider Unavailabl e Encounter Details Date Type Department Care Team (Late st Contact Info) Description 07/04/2019 Transcribed Document [facility] [place] [facility] [place] [address] ProviderMariela MD [address] [place] [address] Social History Tobacco Use Types Packs/Day Years [...] Historical ProviderMD - 07/04/2019 2:00 AM CDT Principal Java Software Engineer Details Entered On: 07/04/2019 3:09 EDT Performed [...] 07/04/2019 3:08 EDT Electronically signed by Chantal [facility] Conversion Clinical Therapist Cerner at 06/16/2022 8:21 PM CDT documented in this encounter Plan of Treatment Not on file documented as of this encounter Visit Diagnoses Not on filedocumented in this encounter
--- OUTSIDE RECORDS SUMMARY | 2024-12-21 10:19 | XMS_ITS | Encounter Summary ---
Author Organization [employer] ([place], [place], [place], [place]) Address [address] [place] [address] Care Team Providers Care Slasher Operator Name Role Phone Unavailable Primary Care Provider Unavailabl e Encounter Details Date Type Department Care Team (Late st Contact Info) Description 07/04/2019 Transcribed Document [facility] Radiology 1 [place] [address] Jordan Barahona MD [address] [id number] Social History Tobacco Use Types Packs/Day Years [...] (JULY 02) L 2.4 (JUN 26) Micro: [facility]: 06/15 [facility] Blood cultures positive for group [...]
--- OUTSIDE RECORDS SUMMARY | 2024-12-21 10:19 | XMS_ITS | Encounter Summary ---
Author Organization [employer] ([place], [place], [place], [place]) Address [address] [place] [address] Care Team Providers Care Powder Blender Name Role Phone Unavailable Primary Care Provider Unavailabl e Encounter Details Date Type Department Care Team (Late st Contact Info) Description 07/05/[address] [facility] [place] Family [place] [facility] [address] ProviderMariela MD [facility] [place], [place] [id number] Social History Tobacco Use Types Packs/Day Years [...]
--- OUTSIDE RECORDS SUMMARY | 2024-12-21 10:19 | XMS_ITS | Encounter Summary ---
Author Organization [employer] ([place], [place], [place], [place]) Address [address] [place] [address] Care Team Providers Care Commercial Project Manager Name Role Phone Unavailable Primary Care Provider Unavailabl e Encounter Details Date Type Department Care Team (Late st Contact Info) Description 07/04/2019 Transcribed Document [facility] Family Medicine [facility] [place] [address] ProviderMariela MD [address] [place] [address] [phone] Social History Tobacco Use Types Packs/Day Years [...]
--- OUTSIDE RECORDS SUMMARY | 2024-12-21 10:19 | XMS_ITS | Encounter Summary ---
Author Organization [employer] ([place], [place], [place], [place]) Address [address] [place] [address] Care Team Providers Care Siding Coreboard Inspector Name Role Phone Unavailable Primary Care Provider Unavailabl e Encounter Details Date Type Department Care Team (Late st Contact Info) Description 08/23/2018 Transcribed Document [facility] [place] [facility] [place] [address] ProviderMariela MD [address] [place] [address] Social History Tobacco Use Types Packs/Day [...]
--- OUTSIDE RECORDS SUMMARY | 2024-12-21 10:19 | XMS_ITS | Encounter Summary ---
Author Organization [employer] ([place], [place], [place], [place]) Address [address] [place] [address] Care Team Providers Care Assistant Baseball Coach Name Role Phone Unavailable Primary Care Provider Unavailabl e Encounter Details Date Type Department Care Team (Late st Contact Info) Description 07/04/2019 Transcribed Document [facility] [place] Family Medicine [address] [place] [address] ProviderMariela MD [address] [place], [place] [phone] Social History Tobacco Use Types Packs/Day Years [...]
--- OUTSIDE RECORDS SUMMARY | 2024-12-21 10:19 | XMS_ITS | Encounter Summary ---
Author Organization [employer] ([place], [place], [place], [place]) Address [address] [place] [address] Care Team Providers Care Field Professional Name Role Phone Unavailable Primary Care Provider Unavailabl e Encounter Details Date Type Department Care Team (Late st Contact Info) Description 07/05/2019 Transcribed Document [facility] Family Medicine [facility] [place] [address] ProviderMariela MD [facility] [place] [address] Social History Tobacco Use Types [...] 07/05/2019 7:52 EDT Electronically signed by Chantal [facility] Conversion Airline Reservationist Cerner at 06/16/2022 8:21 PM CDT documented in this encounter Plan of Treatment Not on file documented as of this encounter Visit Diagnoses Not on filedocumented in this encounter
--- OUTSIDE RECORDS SUMMARY | 2024-12-21 10:19 | XMS_ITS | Encounter Summary ---
Author Organization [employer] ([place], [place], [place], [place]) Address [address] [place] [address] Care Team Providers Care Mechanical Engineering Intern Name Role Phone Unavailable Primary Care Provider Unavailabl e Encounter Details Date Type Department Care Team (Late st Contact Info) Description 06/19/2019 Transcribed Document [facility] [place] [place] [address] ProviderMariela MD [address] [place] [address] [phone] Social History Tobacco Use Types Packs/Day Years [...] Spiritual Care Spiritual Care Referred by : Neonatal Intensive Care Nurse initiated Reason for Visit : Initial Ministry Provided to : Patient Intervention/Comment/Summary Points : Sy is a 79-year-old patient who is seen awake and resting in bed. She complains of shoulder pain and discomfort. Communicated her concerns to her nurse. Provided pastoral care, empathic listening and emotional support. Also faciliated communication with care team. Congregation Preference : [employer] PARTHA KUMAR Chaplain-Non Cert - 06/19/2019 13:10 EDT documented in this encounter Plan of Treatment Not on file documented as of this encounter Visit Diagnoses Not on filedocumented in this encounter
--- OUTSIDE RECORDS SUMMARY | 2024-12-21 10:19 | XMS_ITS | Encounter Summary ---
Author Organization [employer] ([place], [place], [place], [place]) Address [address] [place] [address] Care Team Providers Care Biomedical Repair Technician Name Role Phone Unavailable Primary Care Provider Unavailabl e Encounter Details Date Type Department Care Team (Late st Contact Info) Description 06/30/2019 Transcribed Document [facility] Family Medicine [address] [place] [address] ProviderMariela MD [address] [place], [place] [phone] Social History Tobacco Use Types Packs/Day Years [...]
--- OUTSIDE RECORDS SUMMARY | 2024-12-21 10:19 | XMS_ITS | Encounter Summary ---
Author Organization [employer] ([place], [place], [place], [place]) Address [address] [place] [address] Care Team Providers Care Torque Tester Name Role Phone Unavailable Primary Care Provider Unavailabl e Encounter Details Date Type Department Care Team (Late st Contact Info) Description 07/05/2019 Transcribed Document [facility] [address] ProviderMariela [place] [address] Social History Tobacco Use Types [...] 07/05/2019 7:41 EDT Electronically signed by Chantal [facility] Conversion Zigzag Machine Operator Cerner at 06/16/2022 8:30 PM CDT documented in this encounter Plan of Treatment Not on file documented as of this encounter Visit Diagnoses Not on filedocumented in this encounter
--- OUTSIDE RECORDS SUMMARY | 2024-12-21 10:19 | XMS_ITS | Encounter Summary ---
Author Organization [employer] ([place], [place], [place], [place]) Address [address] [place] [address] Care Team Providers Care Central Office Installer Name Role Phone Unavailable Primary Care Provider Unavailabl e Encounter Details Date Type Department Care Team (Late st Contact Info) Description 06/29/2019 Transcribed Document [facility] Family Medicine [facility] [place] [address] ProviderMariela MD [address] [place] [address] [phone] Social History Tobacco Use Types Packs/Day Years [...] She denies ever requiring dialysis. She [facility] and she has been to the [facility] and [facility] in the past. She has the following equipment at home: wheel chair, walker, cane and shower chair. Her discharge plan is to go to rehab prior to returning home. PCP: Flavia MARQUEZ [address] [phone] Route Rider Supervisor: Dr. Shemar Barger [address] [facility] [phone]. Clemente Del Rio MD - Rheumatology - [address] [phone] Preferences: Home Health: [facility]: no preferences DME: [facility] - [address], [place] [phone] Penitentiary: [facility] facility: no preferences Will continue to monitor patient for anticipated discharge needs Care Management Note Report : YOANNA ARAUJO RN - 06/29/19 08:30:20 Yoanna Araujo 06/29/2019 0830 received fax from [facility] with approval for extended ltac coverage with next clinical review due on 07/12/2019. Auth#[id number]. Will continue to follow for anticipated discharge needs. YOANNA ARAUJO RN - 06/28/19 08:35:06 Yoanna Araujo 06/28/2019 0830 Faxed clinical review to [facility] at to request approval for extended Ltac services. Auth#[id number]. Pending Approval. Documentation Status Complete : Yes YOANNA ARAUJO RN - 06/29/2019 17:14 EDT documented in this encounter Plan of Treatment Not on file documented as of this encounter Visit Diagnoses Not on filedocumented in this encounter
--- OUTSIDE RECORDS SUMMARY | 2024-12-21 10:19 | XMS_ITS | Encounter Summary ---
Author Organization [employer] ([place], [place], [place], [place]) Address [address] [place] [address] Care Team Providers Care Right Of Way Agent Name Role Phone Unavailable Primary Care Provider Unavailabl e Encounter Details Date Type Department Care Team (Late st Contact Info) Description 08/23/2018 Transcribed Document [facility] [place] Medicine [facility] [place] [address] ProviderMarilea MD [address] [place] [address] Social History Tobacco Use Types Packs/Day [...]
--- OUTSIDE RECORDS SUMMARY | 2024-12-21 10:19 | XMS_ITS | Encounter Summary ---
Author Organization [employer] ([place], [place], [place], [place]) Address [address] [place] [address] Care Team Providers Care Fundraising Coordinator Name Role Phone Unavailable Primary Care Provider Unavailabl e Encounter Details Date Type Department Care Team (Late st Contact Info) Description 07/05/2019 Transcribed Document [facility] [place] Medicine [address] [place] [address] ProviderMariela MD [address] [place], [place] [phone] Social History Tobacco Use Types Packs/Day Years [...] 07/05/2019 4:03 EDT Electronically signed by Chantal [facility] Conversion Shirt Finisher Min at 06/16/2022 8:13 PM CDT documented in this encounter Plan of Treatment Not on file documented as of this encounter Visit Diagnoses Not on filedocumented in this encounter
--- OUTSIDE RECORDS SUMMARY | 2024-12-21 10:20 | XMS_ITS | Encounter Summary ---
Author Organization [email or web address] ([place], [place], [place], [place]) Address [address] [place] [address] Care Team Providers Care Financial Reporting Analyst Name Role Phone Unavailable Primary Care Provider Unavailadam e Encounter Details Date Type Department Care Team (Late st Contact Info) Description 06/18/2019 Transcribed Document [facility] [place] [facility] [place] [address] ProviderMariela MD [address] [place] [address] Social History Tobacco Use Types Packs/Day Years [...] Historical ProviderMD - 06/18/2019 2:00 AM CDT Learning Coach Details Entered On: 06/18/2019 6:45 EDT Performed [...] 06/18/2019 6:45 EDT Electronically signed by Chantal [facility] Conversion Sterilization Technician Cerner at 06/16/2022 8:23 PM CDT documented in this encounter Plan of Treatment Not on file documented as of this encounter Visit Diagnoses Not on filedocumented in this encounter
--- OUTSIDE RECORDS SUMMARY | 2024-12-21 10:20 | XMS_ITS | Encounter Summary ---
Author Organization [employer] ([place], [place], [place], [place]) Address [address] [place] [address] Care Team Providers Care Cutter V Groove Name Role Phone Unavailable Primary Care Provider Unavailabl e Encounter Details Date Type Department Care Team (Late st Contact Info) Description 06/18/2019 Transcribed Document [facility] [place] Family Medicine [address] [place] [address] ProviderMariela MD [address] [place], [place] [phone] Social History Tobacco Use Types Packs/Day Years [...]
--- OUTSIDE RECORDS SUMMARY | 2024-12-21 10:20 | XMS_ITS | Encounter Summary ---
Author Organization [employer] ([place], [place], [place], [place]) Address [address] [place] [address] Care Team Providers Care Machine Adjuster Leader Name Role Phone Unavailable Primary Care Provider Unavailabl e Encounter Details Date Type Department Care Team (Late st Contact Info) Description 06/30/2019 Transcribed Document [facility] [place] [place] [facility] [place] [address] ProviderMariela MD [address] [place] [address] Social History Tobacco Use Types Packs/Day Years [...] Historical ProviderMD - 06/30/2019 2:00 AM CDT Glass Cleaner Details Entered On: 06/30/2019 3:12 EDT Performed [...]
--- OUTSIDE RECORDS SUMMARY | 2024-12-21 10:20 | XMS_ITS | Encounter Summary ---
Author Organization [employer] ([place], [place], [place], [place]) Address [address] [place] [address] Care Team Providers Care Manager Inventory Control Name Role Phone Unavailable Primary Care Provider Unavailabl e Encounter Details Date Type Department Care Team (Late st Contact Info) Description 06/29/2019 Transcribed Document [facility] [place] [facility] [place] [address] ProviderMariela MD [address] [place] [address] Social History Tobacco Use Types Packs/Day Years [...]
--- OUTSIDE RECORDS SUMMARY | 2024-12-21 10:20 | XMS_ITS | Encounter Summary ---
Author Organization [employer] ([place], [place], [place], [place]) Address [address] [place] [address] Care Team Providers Care Occupational Therapist Name Role Phone Unavailable Primary Care Provider Unavailabl e Encounter Details Date Type Department Care Team (Late st Contact Info) Description 06/30/2019 Transcribed Document [facility] [place] [facility] [place] [address] ProviderMariela MD [facility] [place] [address] Social History Tobacco Use Types [...] (JUN 26) Micro: [facility]: 06/15 [facility] Blood cultures [...]
--- OUTSIDE RECORDS SUMMARY | 2024-12-21 10:20 | XMS_ITS | Encounter Summary ---
Author Organization [employer] ([place], [place], [place], [place]) Address [address] [place] [address] Care Team Providers Care Holter Technician Name Role Phone Unavailable Primary Care Provider Unavailabl e Encounter Details Date Type Department Care Team (Late st Contact Info) Description 06/30/2019 Transcribed Document [facility] [place] [facility] [place] [address] ProviderMariela MD [address] [place] [phone] Social History Tobacco Use Types Packs/Day Years [...] : 06/28/2019 EDT Interdisciplinary Rounds Participants : district wildlife manager, Dietitian, Occupational Therapist, Pastoral care, Pharmacist, Physical [...] to gluteal cleft and left knee in Hhimpdxmt-Rfwdad-Rtxp Abnormality: Knee Left on 06/28/2019 14:37 by [...]
--- OUTSIDE RECORDS SUMMARY | 2024-12-21 10:20 | XMS_ITS | Encounter Summary ---
Author Organization [employer] ([place], [place], [place], [place]) Address [address] [place] [address] Care Team Providers Care Crusher And Blender Operator Name Role Phone Unavailable Primary Care Provider Unavailabl e Encounter Details Date Type Department Care Team (Late st Contact Info) Description 07/01/2019 Transcribed Document [facility] [place] Family Medicine [facility] [place] [address] ProviderMariela MD [address] [place] [address] Social History Tobacco Use Types Packs/Day [...] 0.9% 50 mL 2 Gram, IV Piggyback, [id number] cyanocobalamin 1,000 mcg tab 5,000 mcg 5 [...] fluticasone 0.05% nasal spray 100 mcg 2 [place], Nostrils Both, BID magnesium hydroxide 8% liq [...]
--- OUTSIDE RECORDS SUMMARY | 2024-12-21 10:20 | XMS_ITS | Encounter Summary ---
Author Organization [employer] ([place], [place], [place], [place]) Address [address] [place] [address] Care Team Providers Care Social Media Specialist Name Role Phone Unavailable Primary Care Provider Unavailabl e Encounter Details Date Type Department Care Team (Late st Contact Info) Description 07/14/2019 Transcribed Document [facility] [place] [facility] [place] [address] ProviderMariela MD [address] [place] [phone] Social History Tobacco Use Types Packs/Day Years [...] 0.9% 100 mL 2 Gram, IV Piggyback, [id number] cyanocobalamin 1,000 mcg tab 5,000 mcg 5 [...] Oral, Q4H fluticasone 0.05% nasal spray 2 [place], Nostrils Both, BID magnesium hydroxide 8% liq [...] % 21.9 % Lymph # 1.56 x10(3)/uL [place] % 12.0 % HI [place] # 0.85 K/uL Eos % 6.2 % [...] precautions. Stress ulcer prophylaxis. Anticipate DC to alf on Wednesday if stable. documented in this encounter Plan of Treatment Not on file documented as of this encounter Visit Diagnoses Not on filedocumented in this encounter
--- OUTSIDE RECORDS SUMMARY | 2024-12-21 10:20 | XMS_ITS | Encounter Summary ---
Author Organization [employer] ([place], [place], [place], [place]) Address [address] [place] [address] Care Team Providers Care Barrel Waterer Name Role Phone Unavailable Primary Care Provider Unavailabl e Encounter Details Date Type Department Care Team (Late st Contact Info) Description 07/14/2019 Transcribed Document [facility] [place] Family Medicine [address] [place] [address] ProviderMariela MD [address] [place], [place] [phone] Social History Tobacco Use Types Packs/Day Years [...]
--- OUTSIDE RECORDS SUMMARY | 2024-12-21 10:20 | XMS_ITS | Encounter Summary ---
Author Organization [employer] ([place], [place], [place], [place]) Address [address] [place] [address] Care Team Providers Care Manager Procurement Name Role Phone Unavailable Primary Care Provider Unavailabl e Encounter Details Date Type Department Care Team (Late st Contact Info) Description 06/19/2019 Transcribed Document [facility] [place] [address] ProviderMariela MD [address] [place] [phone] Social History Tobacco Use Types Packs/Day Years [...] On: 06/19/2019 11:33 EDT by MIKE FRIEDMAN RN-Medical Technologist ChiefPaint Technician Progress Note Discharge Arrangements : Patient Post-Acute Information Patient Name: SOFIA GILL Gender: Female : 44 Age: 79 Years No Post-Acute Placement(s) Listed No Post-Acute Service(s) Listed No [place] Referral(s) Listed Discharge Options Discussed with Patient : Outpatient services MIKE FRIEDMAN RN-Medical Technologist Chief - 06/19/2019 11:33 EDT Narrative Progress Note Narrative Progress Note : Patient becoming more agitated and confused, refusing to wear oxygen. Patient now on CPAP, WBC increased, BC x2 positive for group b Strep. Dr Saenz to perform AKA tomorrow morning. Will continue to follow..............MIKE Adam, RN-Medical Technologist Chief - 06/19/2019 11:33 EDT Electronically signed by Chantal [facility] Conversion Logistics Engineering Manager Cerner at 06/16/2022 8:02 PM CDT documented in this encounter Plan of Treatment Not on file documented as of this encounter Visit Diagnoses Not on filedocumented in this encounter
--- OUTSIDE RECORDS SUMMARY | 2024-12-21 10:20 | XMS_ITS | Encounter Summary ---
Author Organization [employer] ([place], [place], [place], [place]) Address [address] [place] [address] Care Team Providers Care Stabilizing Machine Operator Name Role Phone Unavailable Primary Care Provider Unavailabl e Encounter Details Date Type Department Care Team (Late st Contact Info) Description 06/30/2019 Transcribed Document [facility] [place] Medicine [facility] [place] [address] ProviderMariela MD [address] [place] [address] Social History Tobacco Use Types Packs/Day [...]
--- OUTSIDE RECORDS SUMMARY | 2024-12-21 10:20 | XMS_ITS | Encounter Summary ---
Author Organization [employer] ([place], [place], [place], [place]) Address [address] [place] [address] Care Team Providers Care Forestry Professor Name Role Phone Unavailable Primary Care Provider Unavailabl e Encounter Details Date Type Department Care Team (Late st Contact Info) Description 06/29/2019 Transcribed Document [facility] [place] [facility] [place] [address] ProviderMariela MD [address] [place] [address] Social History Tobacco Use Types Packs/Day [...] 0.9% 50 mL 2 Gram, IV Piggyback, [id number] cyanocobalamin 1,000 mcg tab 5,000 mcg 5 [...] fluticasone 0.05% nasal spray 100 mcg 2 [place], Nostrils Both, BID magnesium hydroxide 8% liq [...]
--- OUTSIDE RECORDS SUMMARY | 2024-12-21 10:20 | XMS_ITS | Encounter Summary ---
Author Organization [employer] ([place], [place], [place], [place]) Address [address] [place] [address] Care Team Providers Care Lead Recoverer Name Role Phone Unavailable Primary Care Provider Unavailabl e Encounter Details Date Type Department Care Team (Late st Contact Info) Description 07/14/2019 Transcribed Document [facility] [place] [facility] [place] [address] ProviderMariela MD [address] [place] [address] Social History Tobacco Use Types Packs/Day [...]
--- OUTSIDE RECORDS SUMMARY | 2024-12-21 10:20 | XMS_ITS | Encounter Summary ---
Author Organization [employer] ([place], [place], [place], [place]) Address [address] [place] [address] Care Team Providers Care Crane Operator Name Role Phone Unavailable Primary Care Provider Unavailabl e Encounter Details Date Type Department Care Team (Late st Contact Info) Description 06/19/2019 Transcribed Document [facility] [place] Family Medicine [address] [place] [address] ProviderMariela MD [address] [place], [place] [phone] Social History Tobacco Use Types Packs/Day Years [...]
--- OUTSIDE RECORDS SUMMARY | 2024-12-21 10:20 | XMS_ITS | Encounter Summary ---
Author Organization [employer] ([place], [place], [place], [place]) Address [address] [place] [address] Care Team Providers Care Anesthesia Resident Name Role Phone Unavailable Primary Care Provider Unavailabl e Encounter Details Date Type Department Care Team (Late st Contact Info) Description 06/20/2019 Transcribed Document [facility] [place] [facility] [place] [address] ProviderMariela MD [address] [place] [address] Social History Tobacco Use Types Packs/Day Years [...]
--- OUTSIDE RECORDS SUMMARY | 2024-12-21 10:20 | XMS_ITS | Encounter Summary ---
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
--- OUTSIDE RECORDS SUMMARY | 2024-12-21 10:20 | XMS_ITS | Encounter Summary ---
Author Organization [employer] ([place], [place], [place], [place]) Address [address] [place] [address] Care Team Providers Care Dry Roaster Name Role Phone Unavailable Primary Care Provider Unavailabl e Encounter Details Date Type Department Care Team (Late st Contact Info) Description 06/29/2019 Transcribed Document [facility] [place] [facility] [place] [address] ProviderMariela MD [address] [place] [address] Social History Tobacco Use Types Packs/Day [...] BCPS HPI: 06/15 [place] [facility] [place] with chronic extensor [...] doses. Rx to follow, Chrissy Henderson, PharmD [phone] Electronically signed by Chantal, [facility] Conversion Adaptive Physical Education Teacher Cerner at 06/16/2022 8:24 PM CDT documented in this encounter Plan of Treatment Not on file documented as of this encounter Visit Diagnoses Not on filedocumented in this encounter
--- OUTSIDE RECORDS SUMMARY | 2024-12-21 10:20 | XMS_ITS | Encounter Summary ---
Author Organization [employer] ([place], [place], [place], [place]) Address [address] [place] [address] Care Team Providers Care Credit Union Field Examiner Name Role Phone Unavailable Primary Care Provider Unavailabl e Encounter Details Date Type Department Care Team (Late st Contact Info) Description 07/13/2019 Transcribed Document [facility] [place] [facility] [place] [address] ProviderMariela MD [address] [place] [address] Social History Tobacco Use Types Packs/Day [...] : 07/12/2019 EDT Interdisciplinary Rounds Participants : member certification manager, Dietitian, Pastoral care, Pharmacist, Other: WOCN [...]
--- OUTSIDE RECORDS SUMMARY | 2024-12-21 10:20 | XMS_ITS | Encounter Summary ---
Author Organization [employer] ([place], [place], [place], [place]) Address [address] [place] [address] Care Team Providers Care Accounting Clerk Name Role Phone Unavailable Primary Care Provider Unavailabl e Encounter Details Date Type Department Care Team (Late st Contact Info) Description 06/19/2019 Transcribed Document [facility] [place] [facility] [place] [address] ProviderMariela MD [address] [place], [place] [phone] Social History Tobacco Use Types Packs/Day Years [...] Policy Numbers : Insurance 1 Health Plan: [facility] MEDICARE ADVANTAGE Policy Number: [id number] Authorization Number: Insurance Primary Name : [facility] MEDIC[facility] ADVANTAGE Policy Number: [id number] Authorization Status-Primary : Pending clinicals Reference Number-Primary : [id number] Authorized Service Begin Date-Primary : 06/16/2019 EDT Historical Authorization Comments-Primary : Comment 1: Attempted auth on [facility] portal, message that notification cannot be completed online, Call number on back of card (Michelle Jimenez Rn-Utilization Review 06/17/2019 10:02) TIESHA AQUINO RN-Utilization Review - 06/19/2019 8:01 EDT Electronically signed by Chantal [facility] Conversion 4Th Grade Teacher Cerner at 06/16/2022 8:27 PM CDT documented in this encounter Plan of Treatment Not on file documented as of this encounter Visit Diagnoses Not on filedocumented in this encounter
--- OUTSIDE RECORDS SUMMARY | 2024-12-21 10:20 | XMS_ITS | Encounter Summary ---
Author Organization [employer] ([place], [place], [place], [place]) Address [address] [place] [address] Care Team Providers Care Health And Physical Education Teacher Name Role Phone Unavailable Primary Care Provider Unavailabl e Encounter Details Date Type Department Care Team (Late st Contact Info) Description 07/14/2019 Transcribed Document [facility] [place] [address] ProviderMariela MD [address] [place] [address] Social History Tobacco Use Types Packs/Day Years [...] Georgina Olivo RN - 07/15/2019 2:32 EDT Electronically signed by Maureen Cornejo Conversion Equipment Maintenance Supervisor Cerner at 06/16/2022 8:16 PM CDT documented in this encounter Plan of Treatment Not on file documented as of this encounter Visit Diagnoses Not on filedocumented in this encounter
--- OUTSIDE RECORDS SUMMARY | 2024-12-21 10:20 | XMS_ITS | Encounter Summary ---
Author Organization [employer] ([place], [place], [place], [place]) Address [address] [place] [address] Care Team Providers Care House Calls Nurse Name Role Phone Unavailable Primary Care Provider Unavailabl e Encounter Details Date Type Department Care Team (Late st Contact Info) Description 07/02/2019 Transcribed Document [facility] [place] [facility] [place] [address] ProviderMariela MD [address] [place] [address] Social History Tobacco Use Types Packs/Day [...] 0.9% 50 mL 2 Gram, IV Piggyback, [id number] cyanocobalamin 1,000 mcg tab 5,000 mcg 5 [...] fluticasone 0.05% nasal spray 100 mcg 2 [place], Nostrils Both, BID magnesium hydroxide 8% liq [...]
--- OUTSIDE RECORDS SUMMARY | 2024-12-21 10:20 | XMS_ITS | Encounter Summary ---
Author Organization [employer] ([place], [place], [place], [place]) Address [address] [place] [address] Care Team Providers Care Body Recall Instructor Name Role Phone Unavailable Primary Care Provider Unavailabl e Encounter Details Date Type Department Care Team (Late st Contact Info) Description 06/19/2019 Transcribed Document [facility] [place] [facility] [place] [address] ProviderMariela MD [address] [place] [address] Social History Tobacco Use Types Packs/Day Years [...] Historical ProviderMD - 06/19/2019 2:00 AM CDT Nps Details Entered On: 06/19/2019 2:05 EDT Performed [...] EDT Electronically signed by Maureen Cornejo Conversion Cartography/Mapping Technician Cerner at 06/16/2022 8:28 PM CDT documented in this encounter Plan of Treatment Not on file documented as of this encounter Visit Diagnoses Not on filedocumented in this encounter
--- OUTSIDE RECORDS SUMMARY | 2024-12-21 10:20 | XMS_ITS | Encounter Summary ---
Author Organization [employer] ([place], [place], [place], [place]) Address [address] [place] [address] Care Team Providers Care District Sales Representative Name Role Phone Unavailable Primary Care Provider Unavailabl e Encounter Details Date Type Department Care Team (Late st Contact Info) Description 06/18/2019 Transcribed Document [facility] [place] [facility] [place] [address] ProviderMariela MD [address] [place] [address] Social History Tobacco Use Types Packs/Day [...] 0.9% 50 mL 2 Gram, IV Piggyback, [id number] clindamycin/D5w 600 mg 50 mL, IV Piggyback, [...] Oral, Q4H fluticasone 0.05% nasal spray 2 [place], Nostrils Both, BID gabapentin 300 mg cap [...] % LOW ALYC # 1 K/uL NA [place] Percent Man 5 % RBC Morphology Normal [...]
--- OUTSIDE RECORDS SUMMARY | 2024-12-21 10:20 | XMS_ITS | Encounter Summary ---
Author Organization [employer] ([place], [place], [place], [place]) Address [address] [place] [address] Care Team Providers Care Bush And Vine Farmer Fruit Crops Name Role Phone Unavailable Primary Care Provider Unavailabl e Encounter Details Date Type Department Care Team (Late st Contact Info) Description 07/01/2019 Transcribed Document [facility] [place] [facility] [place] [address] ProviderMariela MD [address] [place] [address] Social History Tobacco Use Types Packs/Day Years [...] Historical ProviderMD - 07/01/2019 2:00 AM CDT Subcontract Manager Details Entered On: 07/01/2019 0:58 EDT [...] NUSRAT TODD RN - 07/01/2019 0:58 EDT documented in this encounter Plan of Treatment Not on file documented as of this encounter Visit Diagnoses Not on filedocumented in this encounter
--- OUTSIDE RECORDS SUMMARY | 2024-12-21 10:20 | XMS_ITS | Encounter Summary ---
Author Organization [employer] ([place], [place], [place], [place]) Address [address] [place] [address] Care Team Providers Care Instrument Mechanic Weapons System Name Role Phone Unavailable Primary Care Provider Unavailabl e Encounter Details Date Type Department Care Team (Late st Contact Info) Description 06/20/2019 Transcribed Document [facility] [place] [facility] [place] [address] ProviderMariela MD [address] [place] [id number] Social History Tobacco Use Types Packs/Day Years [...] : Yes Central Line Insertion [place] [facility] [place] Line Insertion Start Date/Time : 06/20/2019 16:10 EDT Central Catheter Type : Power injection PICC Central Line Lot Number : [id number] Central Line Vessel Cannulated : Median basilic [...] 06/20/2019 19:16 EDT Electronically signed by Chantal [facility] Conversion Communications Equipment Operator Cerner at 06/16/2022 8:06 PM CDT documented in this encounter Plan of Treatment Not on file documented as of this encounter Visit Diagnoses Not on filedocumented in this encounter
--- OUTSIDE RECORDS SUMMARY | 2024-12-21 10:20 | XMS_ITS | Encounter Summary ---
Author Organization [employer] ([place], [place], [place], [place]) Address [address] [place] [address] Care Team Providers Care Specialty Molder Name Role Phone Unavailable Primary Care Provider Unavailabl e Encounter Details Date Type Department Care Team (Late st Contact Info) Description 06/19/2019 Transcribed Document [facility] [place] [facility] [place] [address] ProviderMariela MD [address] [place] [address] Social History Tobacco Use [...] Daily fluticasone 50 mcg/inh nasal spray, 2 [place], Nostrils Both, BID, PRN gabapentin, 300 mg= [...] BID fluticasone 50 mcg/inh nasal spray, 2 [place], Nostrils Both, BID, PRN Lasix 40 mg [...] drugs (Itching) Electronically signed by Chantal [facility] Conversion Die Maker Apprentice Cerner at 06/16/2022 8:26 PM CDT documented in this encounter Plan of Treatment Not on file documented as of this encounter Visit Diagnoses Not on filedocumented in this encounter
--- OUTSIDE RECORDS SUMMARY | 2024-12-21 10:20 | XMS_ITS | Encounter Summary ---
Author Organization [employer] ([place], [place], [place], [place]) Address [address] [place] [address] Care Team Providers Care Weight Loss Sales Consultant Name Role Phone Unavailable Primary Care Provider Unavailabl e Encounter Details Date Type Department Care Team (Late st Contact Info) Description 07/14/2019 Transcribed Document [facility] [place] [facility] [place] [address] ProviderMariela MD [address] [place] [address] Social History Tobacco Use Types Packs/Day Years [...] - 07/15/2019 2:33 EDT Electronically signed by Maureen Cornejo Conversion Medical Secretary Receptionist Min at 06/16/2022 8:21 PM CDT documented in this encounter Plan of Treatment Not on file documented as of this encounter Visit Diagnoses Not on filedocumented in this encounter
--- OUTSIDE RECORDS SUMMARY | 2024-12-21 10:20 | XMS_ITS | Encounter Summary ---
Author Organization [employer] ([place], [place], [place], [place]) Address [address] [place] [address] Care Team Providers Care Consumer Education Specialist Name Role Phone Unavailable Primary Care Provider Unavailabl e Encounter Details Date Type Department Care Team (Late st Contact Info) Description 06/19/2019 Transcribed Document [facility] [place] [facility] [place] [address] ProviderMariela MD [address] [place] [address] Social History Tobacco Use Types [...] 0.9% 50 mL 2 Gram, IV Piggyback, [id number] clindamycin/D5w 600 mg 50 mL, IV Piggyback, [...] Oral, Q4H fluticasone 0.05% nasal spray 2 [place], Nostrils Both, BID gabapentin 300 mg cap [...] % LOW Lymph # 1.12 K/uL LOW [place] % 6.6 % [place] # 1.64 K/uL HI Eos % 0.1 [...] 1-Time, Stop: 06/20/19 4:00:00 EDT, Lab Collect. Electronically signed by Maureen Cornejo Conversion Sales Representative Printing Paper Cerner at 06/16/2022 8:12 PM CDT documented in this encounter Plan of Treatment Not on file documented as of this encounter Visit Diagnoses Not on filedocumented in this encounter
--- OUTSIDE RECORDS SUMMARY | 2024-12-21 10:20 | XMS_ITS | Encounter Summary ---
Author Organization [employer] ([place], [place], [place], [place]) Address [address] [place] [address] Care Team Providers Care Retail Analytics Manager Name Role Phone Unavailable Primary Care Provider Unavailabl e Encounter Details Date Type Department Care Team (Late st Contact Info) Description 07/01/2019 Transcribed Document [facility] [place] [facility] [place] [address] ProviderMariela MD [address] [place] [address] Social History Tobacco Use Types Packs/Day Years [...]
--- OUTSIDE RECORDS SUMMARY | 2024-12-21 10:20 | XMS_ITS | Encounter Summary ---
Author Organization [employer] ([place], [place], [place], [place]) Address [address] [place] [address] Care Team Providers Care Spice Blender Name Role Phone Unavailable Primary Care Provider Unavailabl e Encounter Details Date Type Department Care Team (Late st Contact Info) Description 07/14/2019 Transcribed Document [facility] [place] [facility] [place] [address] ProviderMariela MD [address] [place] [address] Social History Tobacco Use Types [...] has accepted bed offer at [facility], she will be transported on WednesdayJuly 16 at 2pm by [employer] transport Confirmation # [id number]. She declined the bed offer at [facility] Jaffe notified of discharge plan. Care Management Note Report : YOANNA ARAUJO RN - 07/13/19 14:37:44 Yoanna Araujo 07/13/2019 1400 received call from Ratna with [facility] offering patient a bed, Received call from Isabelle with [facility] she is looking at patient and needed a current height and weight. Still waiting to see if any other bed offers come through. I also sent referral to [facility]. YOANNA ARAUJO RN - 07/13/19 11:04:03 Yoanna Araujo 07/13/2019 1100 faxed out referral for placement for patient to [facility] and rehab, [facility] facilities and triology facilities. Awaiting call backs. СВЕТЛАНА WANG - 07/12/19 12:19:17 07/12/2019 Fax received from [facility] with approval for LTAC services with a request for updated discharge plans and clinical info to support needs if not discharged. Auth#[id number]. Clinical review or discharge summary to be faxed by 07/17/2019. YOANNA ARAUJO RN - 07/12/19 08:39:48 Yoanna Araujo 07/12/2019 0830 - faxed clinical review the [facility] at [phone] to request approval for extended ltac services. Auth#[id number], awaiting approval. YOANNA ARAUJO RN - 06/29/19 [...] health and she has been to the [place] [facility] and [facility] in the past. She has the following equipment at home: wheel chair, walker, cane and shower chair. Her discharge plan is to go to rehab prior to returning home. PCP: Flavia MARQUEZ [address] [phone] Forgeman Helper: Dr. Shemar Barger [phone] Clemente Del Rio MD - Rheumatology - [address] [place] [address] Preferences: Home Health: [facility]: no preferences DME: [facility] - [address], [place] [address] Residential: [facility] facility: no preferences Will continue to monitor patient for anticipated discharge needs YOANNA ARAUJO RN - 06/29/19 08:30:20 Yoanna Araujo 06/29/2019 0830 received fax from [facility] with approval for extended ltac coverage with next clinical review due on 07/12/2019. Auth#[id number]. Will continue to follow for anticipated discharge needs. YOANNA ARAUJO RN - 06/28/19 08:35:06 Yoanna Araujo 06/28/2019 0830 Faxed clinical review to [facility] at to request approval for extended Ltac services. Auth#[id number]. Pending Approval. Documentation Status Complete : Yes YOANNA ARAUJO RN - 07/14/2019 15:38 EDT documented in this encounter Plan of Treatment Not on file documented as of this encounter Visit Diagnoses Not on filedocumented in this encounter
--- OUTSIDE RECORDS SUMMARY | 2024-12-21 10:21 | XMS_ITS | Encounter Summary ---
Author Organization [employer] ([place], [place], [place], [place]) Address [address] [place] [address] Care Team Providers Care Zipper Machine Operator Name Role Phone Unavailable Primary Care Provider Unavailabl e Encounter Details Date Type Department Care Team (Late st Contact Info) Description 07/01/2019 Transcribed Document [facility] [place] [facility] [place] [address] ProviderMariela MD [address] [place] [address] Social History Tobacco Use Types Packs/Day Years [...]
--- OUTSIDE RECORDS SUMMARY | 2024-12-21 10:21 | XMS_ITS | Encounter Summary ---
Author Organization [employer] ([place], [place], [place], [place]) Address [address] [place] [address] Care Team Providers Care Parliamentary Counsel Name Role Phone Unavailable Primary Care Provider Unavailabl e Encounter Details Date Type Department Care Team (Late st Contact Info) Description 07/03/2019 Transcribed Document [facility] [place] [facility] [place] [address] ProviderMariela MD [address] [place] [address] Social History Tobacco Use Types Packs/Day Years [...]
--- OUTSIDE RECORDS SUMMARY | 2024-12-21 10:21 | XMS_ITS | Encounter Summary ---
Author Organization [employer] ([place], [place], [place], [place]) Address [address] [place] [address] Care Team Providers Care Director Of Pupil Personnel Program Name Role Phone Unavailable Primary Care Provider Unavailabl e Encounter Details Date Type Department Care Team (Late st Contact Info) Description 08/24/2018 Transcribed Document [facility] [place] [facility] [place] [address] ProviderMariela MD [address] [place] [phone] Social History Tobacco Use Types Packs/Day Years [...] 08/24/2018 8:02 EDT by MARY MCGRAW Care Management-Health Informatics Instructor Final Discharge Planning Discharge Arrangements : Patient Post-Acute Information Patient Name: SOFIA BARLOW Gender: Female : 44 Age: 78 Years No Post-Acute Placement(s) Listed No Post-Acute Service(s) Listed No [place] Referral(s) Listed Transportation Needs : Family/Friend Discharge To Care Management : SNF with Medicare Certification-03 MARY MCGRAW Care Management-Health Informatics Instructor - 08/24/2018 8:02 EDT Final Narrative Note Final Narrative Note : Insurance approval obtained for pt to go to [facility] 08/24 MARY MCGRAW, Care Management-Health Informatics Instructor - 08/24/2018 8:02 EDT documented in this encounter Plan of Treatment Not on file documented as of this encounter Visit Diagnoses Not on filedocumented in this encounter
--- OUTSIDE RECORDS SUMMARY | 2024-12-21 10:21 | XMS_ITS | Encounter Summary ---
Author Organization [employer] ([place], [place], [place], [place]) Address [address] [place] [address] Care Team Providers Care Limo Driver Name Role Phone Unavailable Primary Care Provider Unavailabl e Encounter Details Date Type Department Care Team (Late st Contact Info) Description 06/19/2019 Transcribed Document [facility] [place] Medicine [address] [place] [address] ProviderMariela MD [address] [place], [place] [phone] Social History Tobacco Use Types Packs/Day Years [...]
--- OUTSIDE RECORDS SUMMARY | 2024-12-21 10:21 | XMS_ITS | Encounter Summary ---
Author Organization [employer] ([place], [place], [place], [place]) Address [address] [place] [address] Care Team Providers Care Photographic Laboratory Technician Name Role Phone Unavailable Primary Care Provider Unavailabl e Encounter Details Date Type Department Care Team (Late st Contact Info) Description 07/03/2019 Transcribed Document [facility] [place] [facility] [place] [address] ProviderMariela MD [address] [place] [address] Social History Tobacco Use Types Packs/Day [...] 0.9% 50 mL 2 Gram, IV Piggyback, [id number] cyanocobalamin 1,000 mcg tab 5,000 mcg 5 [...] fluticasone 0.05% nasal spray 100 mcg 2 [place], Nostrils Both, BID magnesium hydroxide 8% liq [...] % 22.6 % Lymph # 1.63 x10(3)/uL [place] % 13.7 % [place] # 0.99 K/uL Eos % 2.9 % [...]
--- OUTSIDE RECORDS SUMMARY | 2024-12-21 10:21 | XMS_ITS | Encounter Summary ---
Author Organization [employer] ([place], [place], [place], [place]) Address [address] [place] [address] Care Team Providers Care Warp Clamper Name Role Phone Unavailable Primary Care Provider Unavailabl e Encounter Details Date Type Department Care Team (Late st Contact Info) Description 07/03/2019 Transcribed Document [facility] [place] [facility] [place] [address] ProviderMariela MD [address] [place] [address] Social History Tobacco Use Types [...] EDT Electronically signed by Maureen Cornejo Conversion Phosphorus Processing Supervisor Cerner at 06/16/2022 8:03 PM CDT documented in this encounter Plan of Treatment Not on file documented as of this encounter Visit Diagnoses Not on filedocumented in this encounter
--- OUTSIDE RECORDS SUMMARY | 2024-12-21 10:21 | XMS_ITS | Encounter Summary ---
Author Organization [employer] ([place], [place], [place], [place]) Address [address] [place] [address] Care Team Providers Care Mouse Breeder Name Role Phone Unavailable Primary Care Provider Unavailabl e Encounter Details Date Type Department Care Team (Late st Contact Info) Description 06/19/2019 Transcribed Document [facility] [place] [address] ProviderMariela MD [address] [place], [place] [phone] Social History Tobacco Use Types Packs/Day Years [...] Policy Numbers : Insurance 1 Health Plan: [facility] MED[facility] ADVANT[facility] Policy Number: [id number] Authorization Number: Insurance Primary Name : [facility] Policy Number: [id number] Authorization Status-Primary : Pending clinicals Reference Number-Primary : [id number] Authorized Service Begin Date-Primary : 06/16/2019 EDT Authorization Comments-Primary : Clinicals faxed via Min Historical Authorization Comments-Primary : Comment 1: Attempted auth on [facility] portal, message that notification cannot be completed online, Call number on back of card (Michelle Jimenez Rn-Utilization Review 06/17/2019 10:02) Michelle Jimenez Rn-Utilization Review - 06/19/2019 9:50 EDT documented in this encounter Plan of Treatment Not on file documented as of this encounter Visit Diagnoses Not on filedocumented in this encounter
--- OUTSIDE RECORDS SUMMARY | 2024-12-21 10:21 | XMS_ITS | Encounter Summary ---
Author Organization [employer] ([place], [place], [place], [place]) Address [address] [place] [address] Care Team Providers Care Information Strategist Name Role Phone Unavailable Primary Care Provider Unavailabl e Encounter Details Date Type Department Care Team (Late st Contact Info) Description 06/20/2019 Transcribed Document [facility] [place] [facility] [place] [address] ProviderMariela MD [address] [place] [address] Social History Tobacco Use Types Packs/Day Years [...]
--- OUTSIDE RECORDS SUMMARY | 2024-12-21 10:21 | XMS_ITS | Encounter Summary ---
Author Organization [employer] ([place], [place], [place], [place]) Address [address] [place] [address] Care Team Providers Care Director Of Cardiopulmonary Services Name Role Phone Unavailable Primary Care Provider Unavailabl e Encounter Details Date Type Department Care Team (Late st Contact Info) Description 06/19/2019 Transcribed Document [facility] [place] [facility] [place] [address] ProviderMariela MD [address] [place], [place] [id number] Social History Tobacco Use Types Packs/Day Years [...] Policy Numbers : Insurance 1 Health Plan: [facility] MEDICARE ADVANTAGE Policy Number: [id number] Authorization Number: Insurance Primary Name : [facility] MEDICARE ADVANTAGE Policy Number: [id number] Authorization Status-Primary : Pending clinicals Reference Number-Primary : [id number] Authorized Service Begin Date-Primary : 06/16/2019 EDT Authorization Comments-Primary : [facility] auth pending per website Historical Authorization Comments-Primary : Comment 1: Clinicals faxed via Min (Michelle Jimenez Rn-Utilization Review 06/19/2019 09:50) Comment 2: Attempted auth on [facility] portal, message that notification cannot be completed online, Call number on back of card (Michelle Jimenez, L[employer]-Utilization Review 06/17/2019 10:02) TIESHA AQUINO RN-Utilization Review - 06/19/2019 15:52 EDT Electronically signed by [facility] Conversion Manager Of Pharmacy Cerner at 06/16/2022 8:20 PM CDT documented in this encounter Plan of Treatment Not on file documented as of this encounter Visit Diagnoses Not on filedocumented in this encounter
--- OUTSIDE RECORDS SUMMARY | 2024-12-21 10:21 | XMS_ITS | Encounter Summary ---
Author Organization [employer] ([place], [place], [place], [place]) Address [address] [place] [address] Care Team Providers Care Forging Operator Name Role Phone Unavailable Primary Care Provider Unavailabl e Encounter Details Date Type Department Care Team (Late st Contact Info) Description 07/03/2019 Transcribed Document [facility] Radiology [address] [place] [address] Jordan Barahona MD [address] [id number] Social History Tobacco Use Types Packs/Day Years [...] (JULY 02) L 2.4 (JUN 26) Micro: [facility]: 06/15 [facility] Blood cultures positive for group [...]
--- OUTSIDE RECORDS SUMMARY | 2024-12-21 10:21 | XMS_ITS | Encounter Summary ---
Author Organization [employer] ([place], [place], [place], [place]) Address [address] [place] [address] Care Team Providers Care Contact Lens Edge Buffer Name Role Phone Unavailable Primary Care Provider Unavailabl e Encounter Details Date Type Department Care Team (Late st Contact Info) Description 07/03/2019 Transcribed Document [facility] [place] Family Medicine [address] [place] [address] ProviderMariela MD [address] [place], [place] [phone] Social History Tobacco Use Types Packs/Day Years [...]
--- OUTSIDE RECORDS SUMMARY | 2024-12-21 10:22 | XMS_ITS | Encounter Summary ---
Author Organization [employer] ([place], [place], [place], [place]) Address [address] [place] [address] Care Team Providers Care Irrigation Specialist Name Role Phone Unavailable Primary Care Provider Unavailabl e Encounter Details Date Type Department Care Team (Late st Contact Info) Description 08/24/2018 Transcribed Document [facility] [place] [address] [place] [address] ProviderMariela MD [address] [place], [place] [phone] Social History Tobacco Use Types Packs/Day Years [...]
--- OUTSIDE RECORDS SUMMARY | 2024-12-21 10:22 | XMS_ITS | Encounter Summary ---
Author Organization [employer] ([place], [place], [place], [place]) Address [address] [place] [address] Care Team Providers Care Sheep Farm Worker Name Role Phone Unavailable Primary Care Provider Unavailabl e Encounter Details Date Type Department Care Team (Late st Contact Info) Description 06/20/2019 Transcribed Document [facility] [place] [facility] [place] [address] ProviderMariela MD [address] [place] [address] Social History Tobacco Use Types Packs/Day Years [...] Historical ProviderMD - 06/20/2019 2:00 AM CDT Drafter Commercial Details Entered On: 06/20/2019 1:18 EDT Performed [...]
--- OUTSIDE RECORDS SUMMARY | 2024-12-21 10:22 | XMS_ITS | Encounter Summary ---
Author Organization [employer] ([place], [place], [place], [place]) Address [address] [place] [address] Care Team Providers Care Forms Designer Name Role Phone Unavailable Primary Care Provider Unavailabl e Encounter Details Date Type Department Care Team (Late st Contact Info) Description 06/21/2019 Transcribed Document [facility] [place] [facility] [place] [address] ProviderMariela MD [facility] [place] [address] Social History Tobacco [...] (JUN 18) L 2.0 (JUN 16) Micro: [facility]: 06/15 [facility] Blood cultures positive for group B strep and 2/2 bottles SJE: 06/16 fluid aspiration of left knee shows 118,150 white blood cells, GPC 06/16 repeat blood cultures with Group B Strep 06/16 MRSA surveillance culture and pro/pending 06/16 Urine culture in process/pending Rad: Radiology Results (Last 48 hours) [id number] -- 06/16/2019 21:08 CR Knee 1 or [...]
--- OUTSIDE RECORDS SUMMARY | 2024-12-21 10:22 | XMS_ITS | Encounter Summary ---
Author Organization [employer] ([place], [place], [place], [place]) Address [address] [place] [address] Care Team Providers Care Virology Teacher Name Role Phone Unavailable Primary Care Provider Unavailabl e Encounter Details Date Type Department Care Team (Late st Contact Info) Description 06/21/[address] [facility] [place] [facility] [place] [address] ProviderMariela MD [address] [place] [address] Social History Tobacco Use Types Packs/Day Years [...]
--- OUTSIDE RECORDS SUMMARY | 2024-12-21 10:22 | XMS_ITS | Encounter Summary ---
Author Organization [employer] ([place], [place], [place], [place]) Address [address] [place] [address] Care Team Providers Care Comic Illustrator Name Role Phone Unavailable Primary Care Provider Unavailabl e Encounter Details Date Type Department Care Team (Late st Contact Info) Description 06/20/2019 Transcribed Document [facility] [place] [facility] [place] [address] ProviderMariela MD [address] [place], [place] [phone] Social History Tobacco Use Types Packs/Day Years [...] Policy Numbers : Insurance 1 Health Plan: [facility] MEDICARE ADVANTAGE Policy Number: [id number] Authorization Number: Insurance Primary Name : [facility] MEDICARE ADVANTAGE Policy Number: [id number] Authorization Status-Primary : Admit approved Reference Number-Primary : [id number] Authorization Number-Primary : [id number] Number of Days Authorized-Primary : 10 Day(s) Authorized Service Begin Date-Primary : 06/16/2019 EDT Authorized Service End Date-Primary : 06/26/2019 EDT Authorization Comments-Primary : [facility] approved per fax for 11 days Historical Authorization Comments-Primary : Comment 1: [facility] auth pending per website (TIESHA AQUINO RN-Utilization Review 06/19/2019 15:52) Comment 2: Clinicals faxed via [employer] (Michelle Jimenez Rn-Utilization Review 06/19/2019 09:50) Comment 3: Attempted auth on [facility] portal, message that notification cannot be completed online, Call number on back of card (Michelle Jimenez Rn-Utilization Review 06/17/2019 10:02) TIESHA AQUINO RN-Utilization Review - 06/20/2019 12:51 EDT documented in this encounter Plan of Treatment Not on file documented as of this encounter Visit Diagnoses Not on filedocumented in this encounter
--- OUTSIDE RECORDS SUMMARY | 2024-12-21 10:22 | XMS_ITS | Encounter Summary ---
Author Organization [employer] ([place], [place], [place], [place]) Address [address] [place] [address] Care Team Providers Care Staff Engineer Name Role Phone Unavailable Primary Care Provider Unavailabl e Encounter Details Date Type Department Care Team (Late st Contact Info) Description 06/21/[address] [facility] [place] [address] [place] [address] ProviderMariela MD [address] [place], [place] [phone] Social History Tobacco Use Types Packs/Day Years [...] All Active Orders Reviewed : Yes Reid aRmon Rn-Charge - 06/21/2019 3:03 EDT documented in this encounter Plan of Treatment Not on file documented as of this encounter Visit Diagnoses Not on filedocumented in this encounter
--- OUTSIDE RECORDS SUMMARY | 2024-12-21 10:22 | XMS_ITS | Encounter Summary ---
Author Organization [employer] ([place], [place], [place], [place]) Address [address] [place] [address] Care Team Providers Care Institution Librarian Name Role Phone Unavailable Primary Care Provider Unavailabl e Encounter Details Date Type Department Care Team (Late st Contact Info) Description 06/21/2019 Transcribed Document [facility] [place] [facility] [place] [address] ProviderMariela MD [address] [place] [address] Social History Tobacco Use Types Packs/Day [...] Intact Response to Pain : Intact MUKUL MARTIENZ, PT - 06/22/2019 15:40 EDT Edu Topics [...] MUKUL MARTINEZ, PT - 06/22/2019 15:40 EDT Residential Goals Other PT LTG Grid [...] MUKUL MARTINEZ, PT - 06/22/2019 15:40 EDT Desloge PT Charges PT Ther Activities Ea 15 Min : 1 PT Eval Moderate Complexity : 1 MUKUL MARTINEZ PT - 06/22/2019 15:40 EDT Electronically signed by Chantal [facility] Conversion Code Enforcement Supervisor Cerner at 06/16/2022 8:06 PM CDT documented in this encounter Plan of Treatment Not on file documented as of this encounter Visit Diagnoses Not on filedocumented in this encounter
--- OUTSIDE RECORDS SUMMARY | 2024-12-21 10:22 | XMS_ITS | Encounter Summary ---
Author Organization [employer] ([place], [place], [place], [place]) Address [address] [place] [address] Care Team Providers Care Motors And Generators Inspector Name Role Phone Unavailable Primary Care Provider Unavailabl e Encounter Details Date Type Department Care Team (Late st Contact Info) Description 08/23/[address] [facility] [place] Medicine [facility] [place] [address] ProviderMariela MD [address] [place] [address] Social History Tobacco Use Types Packs/Day [...]
--- OUTSIDE RECORDS SUMMARY | 2024-12-21 10:22 | XMS_ITS | Encounter Summary ---
Author Organization [employer] ([place], [place], [place], [place]) Address [address] [place] [address] Care Team Providers Care Lean Six Sigma Black Belt Name Role Phone Unavailable Primary Care Provider Unavailabl e Encounter Details Date Type Department Care Team (Late st Contact Info) Description 06/20/2019 Transcribed Document [facility] [place] [facility] [place] [address] ProviderMariela MD [address] [place] [address] Social History Tobacco Use Types Packs/Day Years [...]
--- OUTSIDE RECORDS SUMMARY | 2024-12-21 10:22 | XMS_ITS | Encounter Summary ---
Author Organization [employer] ([place], [place], [place], [place]) Address [address] [place] [address] Care Team Providers Care Break Out Man Name Role Phone Unavailable Primary Care Provider Unavailabl e Encounter Details Date Type Department Care Team (Late st Contact Info) Description 06/20/2019 Transcribed Document [facility] [place] [facility] [place] [address] ProviderMariela MD [address] [place] [address] Social History Tobacco Use Types Packs/Day [...] On: 06/20/2019 11:49 EDT by Halima Tripathi RN-BIOINFORMATICS PROGRAMMERcoater operator Progress Note Discharge Arrangements : Patient Post-Acute [...] Attend Multidisciplinary Rounds? : No Halima Tripathi RN-BIOINFORMATICS PROGRAMMER - 06/20/2019 11:49 EDT Narrative Progress Note [...] tomorrow morning. Will continue to follow..............MIKE Adam RN-Cancer Researcher - 06/19/19 11:35:19 Halima Tripathi RN-BIOINFORMATICS PROGRAMMER - 06/20/2019 11:49 EDT documented in this encounter Plan of Treatment Not on file documented as of this encounter Visit Diagnoses Not on filedocumented in this encounter
--- OUTSIDE RECORDS SUMMARY | 2024-12-21 10:22 | XMS_ITS | Encounter Summary ---
Author Organization [employer] ([place], [place], [place], [place]) Address [address] [place] [address] Care Team Providers Care Laboratory Sampler Name Role Phone Unavailable Primary Care Provider Unavailabl e Encounter Details Date Type Department Care Team (Late st Contact Info) Description 08/23/2018 Transcribed Document [facility] [place] [address] [place] [address] ProviderMariela MD [address] [place], [place] [phone] Social History Tobacco Use Types Packs/Day Years [...]
--- OUTSIDE RECORDS SUMMARY | 2024-12-21 10:22 | XMS_ITS | Encounter Summary ---
Author Organization [employer] ([place], [place], [place], [place]) Address [address] [place] [address] Care Team Providers Care Lawn Mower Repairer Name Role Phone Unavailable Primary Care Provider Unavailabl e Encounter Details Date Type Department Care Team (Late st Contact Info) Description 06/21/2019 Transcribed Document [facility] [place] [facility] [place] [address] ProviderMariela MD [address] [place] [address] Social History Tobacco Use Types Packs/Day [...] UE Strength Comment : Grossly 4/5 Hand Bessemer Regulator Test : Min decreased bilaterally Fine Motor [...] RUSH, FELTON, OTR/Bartolo - 06/23/2019 11:27 EDT Mcfp Goals, OT Other LTG Grid Goal #1 [...] the text rendition version of the form. [place] OT Charges OT Selfcare/Hm Mgmt Ea 15 Min : 2 OT Eval Moderate Complexity : 1 FELTON RUSH OTR/Bartolo - 06/23/2019 11:27 EDT documented in this encounter Plan of Treatment Not on file documented as of this encounter Visit Diagnoses Not on filedocumented in this encounter
--- OUTSIDE RECORDS SUMMARY | 2024-12-21 10:22 | XMS_ITS | Encounter Summary ---
Author Organization [employer] ([place], [place], [place], [place]) Address [address] [place] [address] Care Team Providers Care Turntable Man Name Role Phone Unavailable Primary Care Provider Unavailabl e Encounter Details Date Type Department Care Team (Late st Contact Info) Description 06/21/2019 Transcribed Document [facility] [place] [address] [place] [address] ProviderMariela MD [address] [place], [place] [phone] Social History Tobacco Use Types Packs/Day Years [...]
--- OUTSIDE RECORDS SUMMARY | 2024-12-21 10:22 | XMS_ITS | Encounter Summary ---
Author Organization [facility] ([place], [place], [place], [place]) Address [address] [place] [address] Care Team Providers Care Business Performance Specialist Name Role Phone Unavailable Primary Care Provider Unavailabl e Encounter Details Date Type Department Care Team (Late st Contact Info) Description 06/20/2019 Transcribed Document [facility] [place] [facility] [place] [address] ProviderMariela MD [address] [place] [address] Social History Tobacco Use Types Packs/Day [...] 0.9% 50 mL 2 Gram, IV Piggyback, [id number] cyanocobalamin 1,000 mcg tab 5,000 mcg 5 [...] Oral, Q4H fluticasone 0.05% nasal spray 2 [place], Nostrils Both, BID gabapentin 300 mg cap [...] % LOW ALYC # 1 K/uL NA [place] Percent Man 7 % HI RBC Morphology [...] % LOW Lymph # 1.12 K/uL LOW [place] % 6.6 % [place] # 1.64 K/uL HI Eos % 0.1 [...]
--- OUTSIDE RECORDS SUMMARY | 2024-12-21 10:22 | XMS_ITS | Encounter Summary ---
Author Organization [employer] ([place], [place], [place], [place]) Address [address] [place] [address] Care Team Providers Care Ob/Gyn Physician Name Role Phone Unavailable Primary Care Provider Unavailabl e Encounter Details Date Type Department Care Team (Late st Contact Info) Description 08/24/2018 Transcribed Document [facility] [place] [address] [place] [address] ProviderMariela MD [address] [place], [place] [phone] Social History Tobacco Use Types Packs/Day Years [...] Vianca Morgan, RN - 08/24/2018 18:38 EDT Electronically signed by Maureen Cornejo Conversion Rehabilitation Services Counselor Min at 06/16/2022 8:24 PM CDT documented in this encounter Plan of Treatment Not on file documented as of this encounter Visit Diagnoses Not on filedocumented in this encounter
--- OUTSIDE RECORDS SUMMARY | 2024-12-21 10:22 | XMS_ITS | Encounter Summary ---
Author Organization [employer] ([place], [place], [place], [place]) Address [address] [place] [address] Care Team Providers Care Alcohol Law Enforcement Agent Name Role Phone Unavailable Primary Care Provider Unavailabl e Encounter Details Date Type Department Care Team (Late st Contact Info) Description 06/20/2019 Transcribed Document [facility] [place] [address] ProviderMariela MD [address] [place] [address] Social History Tobacco Use Types [...] Description of Event : Notified by House Odd Shoe Examiner that Dr Saenz would not be performing [...]
--- OUTSIDE RECORDS SUMMARY | 2024-12-21 10:22 | XMS_ITS | Encounter Summary ---
Author Organization [employer] ([place], [place], [place], [place]) Address [address] [place] [address] Care Team Providers Care Clay Artisan Name Role Phone Unavailable Primary Care Provider Unavailabl e Encounter Details Date Type Department Care Team (Late st Contact Info) Description 06/20/2019 Transcribed Document [facility] [place] [address] [place] [address] ProviderMariela MD [address] [place], [place] [phone] Social History Tobacco Use Types Packs/Day Years [...]
--- OUTSIDE RECORDS SUMMARY | 2024-12-21 10:22 | XMS_ITS | Encounter Summary ---
Author Organization [employer] ([place], [place], [place], [place]) Address [address] [place] [address] Care Team Providers Care Licensed Practical Nurse Instructor Name Role Phone Unavailable Primary Care Provider Unavailabl e Encounter Details Date Type Department Care Team (Late st Contact Info) Description 08/24/2018 Transcribed Document [facility] [place] [facility] [place] [address] ProviderMariela MD [address] [place], [place] [phone] Social History Tobacco Use Types Packs/Day Years [...] Spiritual Care Spiritual Care Referred by : Buggy Driver initiated Reason for Visit : Initial Ministry Provided to : Patient Intervention/Comment/Summary Points : Pt had total right kne repalcement surgery on Wednesday - Aug 22. Pt stated that she os going to [facility] tomorrow for rehab. Pt shared that her surgery went well. Buggy Driver prayed for pt's rehab an dhealing of pt's right knee. ADELAIDE JJ CHAPLAIN - 08/24/2018 20:40 EDT Electronically signed by Chantal [facility] Conversion Vacuum Plastic Forming Machine Operator Cerner at 06/16/2022 8:22 PM CDT documented in this encounter Plan of Treatment Not on file documented as of this encounter Visit Diagnoses Not on filedocumented in this encounter
--- OUTSIDE RECORDS SUMMARY | 2024-12-21 10:22 | XMS_ITS | Encounter Summary ---
Author Organization [employer] ([place], [place], [place], [place]) Address [address] [place] [address] Care Team Providers Care Clinical Psychologist Private Practice Name Role Phone Unavailable Primary Care Provider Unavailabl e Encounter Details Date Type Department Care Team (Late st Contact Info) Description 06/20/2019 Transcribed Document [facility] [place] Medicine [facility] [place] [address] ProviderMariela MD [facility] [place] [address] Social History Tobacco Use Types [...] (JUN 18) L 2.0 (JUN 16) Micro: [facility]: 06/15 [facility] Blood cultures positive for group B strep and 2/2 bottles SJE: 06/16 fluid aspiration of left knee shows 118,150 white blood cells, GPC 06/16 repeat blood cultures with Group B Strep 06/16 MRSA surveillance culture and pro/pending 06/16 Urine culture in process/pending Rad: Radiology Results (Last 48 hours) [id number] -- 06/16/2019 21:08 CR Knee 1 or [...] Images reviewed, interpreted, and dictated by Dr. Joradn Richardson.Transcribed by Jl Allison (R).I have personally [...]
--- OUTSIDE RECORDS SUMMARY | 2024-12-21 10:22 | XMS_ITS | Encounter Summary ---
Author Organization [employer] ([place], [place], [place], [place]) Address [address] [place] [address] Care Team Providers Care Child Care Centre Manager Name Role Phone Unavailable Primary Care Provider Unavailabl e Encounter Details Date Type Department Care Team (Late st Contact Info) Description 08/24/2018 Transcribed Document [facility] [place] [facility] [place] [address] ProviderMariela MD [address] [place] [address] Social History Tobacco Use Types Packs/Day [...] form. Electronically signed by Maureen Cornejo Conversion Assembler For Puller Over Hand Cerner at 06/16/2022 8:24 PM CDT documented in this encounter Plan of Treatment Not on file documented as of this encounter Visit Diagnoses Not on filedocumented in this encounter
--- OUTSIDE RECORDS SUMMARY | 2024-12-21 10:22 | XMS_ITS | Encounter Summary ---
Author Organization [employer] ([place], [place], [place], [place]) Address [address] [place] [address] Care Team Providers Care Hedis Specialist Name Role Phone Unavailable Primary Care Provider Unavailabl e Encounter Details Date Type Department Care Team (Late st Contact Info) Description 08/23/2018 Transcribed Document [facility] [place] [facility] [place] [address] ProviderMariela MD [address] [place] [address] Social History Tobacco Use Types Packs/Day [...]
--- OUTSIDE RECORDS SUMMARY | 2024-12-21 10:22 | XMS_ITS | Encounter Summary ---
Author Organization [employer] ([place], [place], [place], [place]) Address [address] [place] [address] Care Team Providers Care Wireless Network Engineer Name Role Phone Unavailable Primary Care Provider Unavailabl e Encounter Details Date Type Department Care Team (Late st Contact Info) Description 08/24/[address] [facility] [place] [facility] [place] [address] ProviderMariela MD [address] [place] [address] Social History Tobacco Use Types Packs/Day [...]
--- OUTSIDE RECORDS SUMMARY | 2024-12-21 10:23 | XMS_ITS | Encounter Summary ---
Author Organization [employer] ([place], [place], [place], [place]) Address [address] [place] [address] Care Team Providers Care Manager Mechanical Maintenance Name Role Phone Unavailable Primary Care Provider Unavailabl e Encounter Details Date Type Department Care Team (Late st Contact Info) Description 06/21/2019 Transcribed Document [facility] [place] [facility] [place] [address] ProviderMariela MD [address] [place] [address] Social History Tobacco Use Types Packs/Day [...] Pain Scale Used : 0-10 Scale Reid Rmaon Rn-Charge - 06/22/2019 6:43 EDT Pain Scale Intensity : 2 Reid Ramon Rn-Charge - 06/22/2019 6:43 EDT Image 4 - Images currently included in the form version of this document have not been included in the text rendition version of the form. Electronically signed by Chantal, [facility] Conversion Baker Paint Cerner at 06/16/2022 8:29 PM CDT documented in this encounter Plan of Treatment Not on file documented as of this encounter Visit Diagnoses Not on filedocumented in this encounter
--- OUTSIDE RECORDS SUMMARY | 2024-12-21 10:23 | XMS_ITS | Encounter Summary ---
Author Organization [employer] ([place], [place], [place], [place]) Address [address] [place] [address] Care Team Providers Care Horticultural Services Supervisor Name Role Phone Unavailable Primary Care Provider Unavailabl e Encounter Details Date Type Department Care Team (Late st Contact Info) Description 08/26/2018 Transcribed Document [facility] [place] [facility] [place] [address] ProviderMariela MD [address] [place] [address] Social History Tobacco Use Types Packs/Day Years [...] Historical ProviderMD - 08/26/2018 2:00 AM CDT Software Support Representative Details Entered On: 08/26/2018 0:26 EDT Performed [...]
--- OUTSIDE RECORDS SUMMARY | 2024-12-21 10:23 | XMS_ITS | Encounter Summary ---
Author Organization [employer] ([place], [place], [place], [place]) Address [address] [place] [address] Care Team Providers Care Switchman Supervisor Name Role Phone Unavailable Primary Care Provider Unavailabl e Encounter Details Date Type Department Care Team (Late st Contact Info) Description 06/21/2019 Transcribed Document [facility] [place] [facility] [place] [address] ProviderMariela MD [address] [place] [address] Social History Tobacco Use Types [...] Mariela ProviderMD - 06/21/2019 8:50 AM CDT [facility] [place] Main OR PreOp Summary Primary Physician: NIMO EPPS MD-ORT Finalized Date/Time: 06/21/19 11:49:12 Pt. Name: SOFIA GILL S /Sex: 1940 Female Med Rec #: [id number] Physician: DONNA DRIVER MD-INT Financial #: [id number] Pt. Type: I Room/Bed: 509/1 Admit/Disch: 06/16/19 21:08:00 - Institution: [facility] PreOp Case Times Entry 1 In Preop 06/21/19 09:15:00 Ready for Holding n/a Room Patient Ready for 06/21/19 10:20:00 Surgery Patient Out of Preop 06/21/19 11:41:00 Patient Out of n/a Holding Room Last Modified By: OZZIE PARSON RN 06/21/19 11:49:08 Tita PreOp Case Times Audit 06/21/19 11:49:08 Hard Candy Batch Mixer: HORACIO Modifier: [id number] <+> 1 Patient Out of Preop Finalized By: OZZIE PARSON RN Document Signatures Signed By: OZZIE PARSON RN 06/21/19 11:49 documented in this encounter Plan of Treatment Not on file documented as of this encounter Visit Diagnoses Not on filedocumented in this encounter
--- OUTSIDE RECORDS SUMMARY | 2024-12-21 10:23 | XMS_ITS | Encounter Summary ---
Author Organization [employer] ([place], [place], [place], [place]) Address [address] [place] [address] Care Team Providers Care Demolition Crane Operator Name Role Phone Unavailable Primary Care Provider Unavailabl e Encounter Details Date Type Department Care Team (Late st Contact Info) Description 06/21/2019 Transcribed Document [facility] [place] [facility] [place] [address] ProviderMariela MD [address] [place] [address] Social History Tobacco Use Types Packs/Day [...] 0.9% 50 mL 2 Gram, IV Piggyback, [id number] cyanocobalamin 1,000 mcg tab 5,000 mcg 5 [...] Push, Q5Min fluticasone 0.05% nasal spray 2 [place], Nostrils Both, BID gabapentin 300 mg cap [...] % LOW ALYC # 1 K/uL NA [place] Percent Man 7 % HI RBC Morphology [...]
--- OUTSIDE RECORDS SUMMARY | 2024-12-21 10:23 | XMS_ITS | Encounter Summary ---
Author Organization [employer] ([place], [place], [place], [place]) Address [address] [place] [address] Care Team Providers Care Biology Lecturer Name Role Phone Unavailable Primary Care Provider Unavailabl e Encounter Details Date Type Department Care Team (Late st Contact Info) Description 06/21/2019 Transcribed Document [facility] [place] Family Medicine On [facility] of [facility] [place] [address] ProviderMariela MD [address] [place] [address] Social History Tobacco Use Types Packs/Day Years [...] Historical ProviderMD - 06/21/2019 2:00 AM CDT Lye Machine Operator Details Entered On: 06/21/2019 0:38 EDT Performed [...]
--- OUTSIDE RECORDS SUMMARY | 2024-12-21 10:23 | XMS_ITS | Encounter Summary ---
Author Organization [employer] ([place], [place], [place], [place]) Address [address] [place] [address] Care Team Providers Care Equal Employment Opportunity Officer Name Role Phone Unavailable Primary Care Provider Unavailabl e Encounter Details Date Type Department Care Team (Late st Contact Info) Description 06/21/2019 Transcribed Document [facility] [place] [facility] [place] [address] ProviderMariela MD [address] [place] [address] Social History Tobacco Use Types Packs/Day Years [...]
--- OUTSIDE RECORDS SUMMARY | 2024-12-21 10:23 | XMS_ITS | Encounter Summary ---
Author Organization [employer] ([place], [place], [place], [place]) Address [address] [place] [address] Care Team Providers Care Concrete Products Dispatcher Name Role Phone Unavailable Primary Care Provider Unavailabl e Encounter Details Date Type Department Care Team (Late st Contact Info) Description 08/25/2018 Transcribed Document [facility] Family Medicine [address] [place] [address] ProviderMariela MD [address] [place], [place] [id number] Social History Tobacco Use Types Packs/Day Years [...]
--- OUTSIDE RECORDS SUMMARY | 2024-12-21 10:23 | XMS_ITS | Encounter Summary ---
Author Organization [employer] ([place], [place], [place], [place]) Address [address] [place] [address] Care Team Providers Care Honey Extractor Name Role Phone Unavailable Primary Care Provider Unavailabl e Encounter Details Date Type Department Care Team (Late st Contact Info) Description 06/21/2019 Transcribed Document [facility] [place] Medicine [facility] [place] [address] ProviderMariela MD [address] [place] [address] Social History Tobacco Use Types [...] Eufemia Dobbs/Sex: 1940 Female Med Rec #: [id number] Physician: DONNA DRIVER MD-INT Financial #: [id number] Pt. Type: I Room/Bed: [facility]/ Admit/Disch: 06/16/19 21:08:00 - Institution: [facility] OR PACU Case Times Entry 1 In PACU I 06/21/19 15:43:00 Ready for PACU 06/21/19 16:38:00 Discharge Discharge from PACU 06/21/19 16:38:00 I Last Modified By: OZZIE PARSON RN 06/21/19 16:38:34 Finalized By: OZZIE PARSON, RN Document Signatures Signed By: OZZIE PARSON RN 06/21/19 16:38 Electronically signed by Chantal [facility] Conversion Rn Baby Cerner at 06/16/2022 8:10 PM CDT documented in this encounter Plan of Treatment Not on file documented as of this encounter Visit Diagnoses Not on filedocumented in this encounter
--- OUTSIDE RECORDS SUMMARY | 2024-12-21 10:23 | XMS_ITS | Encounter Summary ---
Author Organization [employer] ([place], [place], [place], [place]) Address [address] [place] [address] Care Team Providers Care Elephant Keeper Name Role Phone Unavailable Primary Care Provider Unavailabl e Encounter Details Date Type Department Care Team (Late st Contact Info) Description 06/21/2019 Transcribed Document [facility] [place] [facility] [place] [address] ProviderMariela MD [address] [place] [address] Social History Tobacco Use Types Packs/Day [...] On: 06/21/2019 16:57 EDT by MIKE FRIEDMAN RN-Direct Service ProfessionalHris Developer Progress Note Discharge Arrangements : Patient Post-Acute [...] Pt/Fam/Support Person : Other: N/A MIKE FRIEDMAN RN-Direct Service Professional - 06/21/2019 16:57 EDT Narrative Progress Note Narrative Progress Note : Sent referral to LTACH through [facility]..........faby Historical Progress Note : Was planning for AKA, now patient will undergo a total joint revision with I&D. Will continue to follow.............MIKE Adam RN-Direct Service Professional - 06/21/19 16:36:10 PICC line placed, Per LID, plan for mcc IV abx. Surgery scheduled for today................MIKE Adam RN-Direct Service Professional - 06/21/19 10:06:05 No MDR this AM with provider. Patient with low-grade fever this AM and throughout the night. LAKA was rescheduled for 06/20 for this reason. CM will continue to follow. Halima Tripathi RN-ROLL COVERER - 06/20/19 11:50:51 Patient becoming more agitated and confused, refusing to wear oxygen. Patient now on CPAP, WBC increased, BC x2 positive for group b Strep. Dr Saenz to perform AKA tomorrow morning. Will continue to follow..............MIKE Adam RN-Direct Service Professional - 06/19/19 11:35:19 MIKE FRIEDMAN RN-Direct Service Professional - 06/21/2019 16:57 EDT documented in this encounter Plan of Treatment Not on file documented as of this encounter Visit Diagnoses Not on filedocumented in this encounter
--- OUTSIDE RECORDS SUMMARY | 2024-12-21 10:23 | XMS_ITS | Encounter Summary ---
Author Organization [employer] ([place], [place], [place]) Address [address] [place] [address] Care Team Providers Care Cleaning Team Member Name Role Phone Unavailable Primary Care Provider Unavailabl e Encounter Details Date Type Department Care Team (Late st Contact Info) Description 06/21/2019 Transcribed Document [facility] [place] [facility] [place] [place] [address] ProviderMariela MD [address] [place] [address] Social History Tobacco Use Types Packs/Day Years [...]
--- OUTSIDE RECORDS SUMMARY | 2024-12-21 10:23 | XMS_ITS | Encounter Summary ---
Author Organization [employer] ([place], [place], [place], [place]) Address [address] [place] [address] Care Team Providers Care Cashier Self Service Gasoline Name Role Phone Unavailable Primary Care Provider Unavailabl e Encounter Details Date Type Department Care Team (Late st Contact Info) Description 08/25/2018 Transcribed Document [facility] [place] [facility] [place] [address] ProviderMariela MD [address] [place] [address] Social History Tobacco Use Types Packs/Day Years [...]
--- OUTSIDE RECORDS SUMMARY | 2024-12-21 10:23 | XMS_ITS | Encounter Summary ---
Author Organization [employer] ([place], [place], [place], [place]) Address [address] [place] [address] Care Team Providers Care Sheeter Operator Name Role Phone Unavailable Primary Care Provider Unavailabl e Encounter Details Date Type Department Care Team (Late st Contact Info) Description 06/21/2019 Transcribed Document [facility] [place] [address] ProviderMariela MD [address] [place] [address] Social History Tobacco Use Types Packs/Day Years [...] : Nurse Ministry Provided to : Patient Confucianist Preference : Nondenominational PARTHA KUMAR Chaplain-Non Cert - 06/21/2019 11:17 EDT Spiritual Assessment Spiritual Assessment Comment/Summary Points : Sy is a 79-year-old patient who requests prayer prior to surgery. Spirital Assessment Comment/Summary Report : SPIRITUAL ASSESSMENT COMMENT/SUMMARY No qualifying data available. PARTHA KUMAR Chaplain-Non Cert - 06/21/2019 11:17 EDT Interventions Emotional Support : Emotional, Empathic/Engaged listening, Feelings expressed Spiritual and Confucianist : Prayer shared PARTHA KUMAR Chaplain-Celine Cert - 06/21/2019 11:17 EDT Electronically signed by Chantal, [facility] Conversion Lug Loader Cerner at 06/16/2022 8:30 PM CDT documented in this encounter Plan of Treatment Not on file documented as of this encounter Visit Diagnoses Not on filedocumented in this encounter
--- OUTSIDE RECORDS SUMMARY | 2024-12-21 10:23 | XMS_ITS | Encounter Summary ---
Author Organization [employer] ([place], [place], [place], [place]) Address [address] [place] [address] Care Team Providers Care Environmental Test Technician Name Role Phone Unavailable Primary Care Provider Unavailabl e Encounter Details Date Type Department Care Team (Late st Contact Info) Description 06/21/2019 Transcribed Document [facility] [place] [facility] [place] [address] ProviderMariela MD [address] [place] [address] Social History Tobacco Use Types Packs/Day [...] On: 06/21/2019 16:35 EDT by MIKE FRIEDMAN RN-Metallurgical InspectorHome Economics Teacher Progress Note Discharge Arrangements : Patient Post-Acute [...] Pt/Fam/Support Person : Other: N/A MIKE FRIEDMAN RN-Metallurgical Inspector - 06/21/2019 16:35 EDT Narrative Progress Note Narrative Progress Note : Was planning for AKA, now patient will undergo a total joint revision with I&D. Will continue to follow.............faby Historical Progress Note : PICC line placed, Per LID, plan for electric operator IV abx. Surgery scheduled for today................MIKE Adam RN-Metallurgical Inspector - 06/21/19 10:06:05 No MDR this AM with provider. Patient with low-grade fever this AM and throughout the night. COTY was rescheduled for 06/20 for this reason. CM will continue to follow. Halima Tripathi RN-CASHIER MANAGER - 06/20/19 11:50:51 Patient becoming more agitated and confused, refusing to wear oxygen. Patient now on CPAP, WBC increased, BC x2 positive for group b Strep. Dr Saenz to perform AKA tomorrow morning. Will continue to follow..............MIKE Adam RN-Metallurgical Inspector - 06/19/19 11:35:19 MIKE FRIEDMAN RN-Metallurgical Inspector - 06/21/2019 16:35 EDT Electronically signed by Maureen Cornejo Conversion Scientific Laboratory Supervisor Cerner at 06/16/2022 8:05 PM CDT documented in this encounter Plan of Treatment Not on file documented as of this encounter Visit Diagnoses Not on filedocumented in this encounter
--- OUTSIDE RECORDS SUMMARY | 2024-12-21 10:23 | XMS_ITS | Encounter Summary ---
Author Organization [employer] ([place], [place], [place], [place]) Address [address] [place] [address] Care Team Providers Care Grinder Set Up Operator Universal Name Role Phone Unavailable Primary Care Provider Unavailabl e Encounter Details Date Type Department Care Team (Late st Contact Info) Description 06/21/2019 Transcribed Document [facility] [place] [facility] [place] [address] ProviderMariela MD [address] [place] [address] Social History Tobacco Use Types Packs/Day Years [...] EDT Electronically signed by Nikunj Cornejo Conversion Superintendent Oil Well Services Cerner at 06/16/2022 8:10 PM CDT documented in this encounter Plan of Treatment Not on file documented as of this encounter Visit Diagnoses Not on filedocumented in this encounter
--- OUTSIDE RECORDS SUMMARY | 2024-12-21 10:23 | XMS_ITS | Encounter Summary ---
Author Organization [employer] ([place], [place], [place], [place]) Address [address] [place] [address] Care Team Providers Care Rehab/Pre Vocational Counselor Name Role Phone Unavailable Primary Care Provider Unavailabl e Encounter Details Date Type Department Care Team (Late st Contact Info) Description 06/21/2019 Transcribed Document [facility] [place] [facility] [place] [address] ProviderMariela MD [address] [place] [address] Social History Tobacco Use Types Packs/Day Years [...] - 06/21/2019 9:57 EDT Electronically signed by Nikunj Cornejo Conversion [employer] Director Cerner at 06/16/2022 8:06 PM CDT documented in this encounter Plan of Treatment Not on file documented as of this encounter Visit Diagnoses Not on filedocumented in this encounter
--- OUTSIDE RECORDS SUMMARY | 2024-12-21 10:23 | XMS_ITS | Encounter Summary ---
Author Organization [employer] ([place], [place], [place], [place]) Address [address] [place] [address] Care Team Providers Care Engineering Laboratory Technician Name Role Phone Unavailable Primary Care Provider Unavailabl e Encounter Details Date Type Department Care Team (Late st Contact Info) Description 08/24/2018 Transcribed Document [facility] [place] [facility] [place] [address] ProviderMariela MD [address] [place] [address] Social History Tobacco Use Types Packs/Day Years [...] Historical ProviderMD - 08/24/2018 2:00 AM CDT School Secretary Details Entered On: 08/24/2018 0:59 EDT Performed [...] 08/24/2018 0:59 EDT Electronically signed by Chantal [facility] Conversion Film Recordist Cerner at 06/16/2022 8:18 PM CDT documented in this encounter Plan of Treatment Not on file documented as of this encounter Visit Diagnoses Not on filedocumented in this encounter
--- OUTSIDE RECORDS SUMMARY | 2024-12-21 10:23 | XMS_ITS | Encounter Summary ---
Author Organization [employer] ([place], [place], [place], [place]) Address [address] [place] [address] Care Team Providers Care Carton Liner Name Role Phone Unavailable Primary Care Provider Unavailabl e Encounter Details Date Type Department Care Team (Late st Contact Info) Description 06/21/2019 Transcribed Document [facility] [place] [facility] [place] [address] ProviderMariela MD [address] [place] [phone] Social History Tobacco Use Types Packs/Day Years [...] to a hinged total knee replacement at [facility]. The patient then had persistent pain because of femoral implant loosening and was sent to nm. The patient then underwent successful revision left [...] to make sure no infection that knee. /[id number] Riaz Saenz MD CC/AQ / CC / MODL /[id number] Electronically signed by Chantal [facility] Conversion District Representative Cerner at 06/16/2022 8:10 PM CDT documented in this encounter Plan of Treatment Not on file documented as of this encounter Visit Diagnoses Not on filedocumented in this encounter
--- OUTSIDE RECORDS SUMMARY | 2024-12-21 10:23 | XMS_ITS | Encounter Summary ---
Author Organization [employer] ([place], [place], [place], [place]) Address [address] [place] [address] Care Team Providers Care Special Education Associate Name Role Phone Unavailable Primary Care Provider Unavailabl e Encounter Details Date Type Department Care Team (Late st Contact Info) Description 06/22/2019 Transcribed Document [facility] [place] [facility] [place] [address] ProviderMariela MD [address] [place] [address] Social History Tobacco Use Types Packs/Day Years [...] TOR MEJIA, PT - 06/22/2019 11:25 EDT Electronically signed by Maureen Cornejo Conversion Communications Equipment Supervisor Cerner at 06/16/2022 8:02 PM CDT documented in this encounter Plan of Treatment Not on file documented as of this encounter Visit Diagnoses Not on filedocumented in this encounter
--- OUTSIDE RECORDS SUMMARY | 2024-12-21 10:23 | XMS_ITS | Encounter Summary ---
Author Organization [employer] ([place], [place], [place], [place]) Address [address] [place] [address] Care Team Providers Care Stock Unloader Name Role Phone Unavailable Primary Care Provider Unavailabl e Encounter Details Date Type Department Care Team (Late st Contact Info) Description 08/25/2018 Transcribed Document [facility] [place] Family Medicine [facility] [place] [address] ProviderMariela MD [address] [place] [address] Social History Tobacco Use Types Packs/Day [...] 08/25/2018 10:33 EDT by MARY MCGRAW Care Management-Forestry Farm Laborer Care Management Progress Note Discharge Arrangements : [...] Clinical Condition of Patient MARY MCGRAW, Care Management-Forestry Farm Laborer - 08/25/2018 10:33 EDT Narrative Progress Note Narrative Progress Note : INSURANCE AUTHORIZATION WILL NEED TO BE RE INITIATED IT HAS SINCE D/C WAS HELD DUE TO PTS CONDITION ANTICIPATE D/C ON WEDNESDAY PENDING AUTHORIZATION AND MEDICAL STABILITY MARY MCGRAW, Care Management-Forestry Farm Laborer - 08/26/2018 16:54 EDT documented in this encounter Plan of Treatment Not on file documented as of this encounter Visit Diagnoses Not on filedocumented in this encounter
--- OUTSIDE RECORDS SUMMARY | 2024-12-21 10:23 | XMS_ITS | Encounter Summary ---
Author Organization [employer] ([place], [place], [place], [place]) Address [address] [place] [address] Care Team Providers Care Massage Therapist Name Role Phone Unavailable Primary Care Provider Unavailabl e Encounter Details Date Type Department Care Team (Late st Contact Info) Description 08/26/2018 Transcribed Document [facility] [place] Family Medicine [facility] [place] [address] ProviderMariela MD [address] [place] [address] Social History Tobacco Use Types Packs/Day [...] form. Electronically signed by Nikunj Cornejoh Conversion Hat Stock Laminating Machine Operator Cerner at 06/16/2022 8:10 PM CDT documented in this encounter Plan of Treatment Not on file documented as of this encounter Visit Diagnoses Not on filedocumented in this encounter
--- OUTSIDE RECORDS SUMMARY | 2024-12-21 10:23 | XMS_ITS | Encounter Summary ---
Author Organization [employer] ([place], [place], [place], [place]) Address [address] [place] [address] Care Team Providers Care Director Of Transportation Name Role Phone Unavailable Primary Care Provider Unavailabl e Encounter Details Date Type Department Care Team (Late st Contact Info) Description 06/21/2019 Transcribed Document [facility] [place] [facility] [place] [address] ProviderMariela MD [address] [place] [address] Social History Tobacco Use Types Packs/Day [...]
--- OUTSIDE RECORDS SUMMARY | 2024-12-21 10:23 | XMS_ITS | Encounter Summary ---
Author Organization [employer] ([place], [place], [place], [place]) Address [address] [place] [address] Care Team Providers Care Professional Bondsman Name Role Phone Unavailable Primary Care Provider Unavailabl e Encounter Details Date Type Department Care Team (Late st Contact Info) Description 06/21/2019 Transcribed Document [facility] [place] [facility] [place] [address] ProviderMariela MD [address] [place] [address] Social History Tobacco Use Types Packs/Day [...] On: 06/21/2019 10:05 EDT by MIKE FRIEDMAN RN-Shirring Machine Operator AutomaticBlackjack Dealer Progress Note Discharge Arrangements : Patient Post-Acute [...] Pt/Fam/Support Person : Other: N/A MIKE FRIEDMAN RN-Shirring Machine Operator Automatic - 06/21/2019 10:05 EDT Narrative Progress Note Narrative Progress Note : PICC line placed, Per LID, plan for rn long term care IV abx. Surgery scheduled for today................faby Historical Progress Note : No MDR this AM with provider. Patient with low-grade fever this AM and throughout the night. COTY was rescheduled for 06/20 for this reason. CM will continue to follow. Halima Tripathi, EDDIE-GLASSWORKER - 06/20/19 11:50:51 Patient becoming more agitated and confused, refusing to wear oxygen. Patient now on CPAP, WBC increased, BC x2 positive for group b Strep. Dr Saenz to perform AKA tomorrow morning. Will continue to follow..............MIKE Adam RN-Shirring Machine Operator Automatic - 06/19/19 11:35:19 MIKE FRIEDMAN RN-Shirring Machine Operator Automatic - 06/21/2019 10:05 EDT documented in this encounter Plan of Treatment Not on file documented as of this encounter Visit Diagnoses Not on filedocumented in this encounter
--- OUTSIDE RECORDS SUMMARY | 2024-12-21 10:23 | XMS_ITS | Encounter Summary ---
Author Organization [employer] ([place], [place], [place], [place]) Address [address] [place] [address] Care Team Providers Care Pen Or Pencil Assembly Machine Operator Name Role Phone Unavailable Primary Care Provider Unavailabl e Encounter Details Date Type Department Care Team (Late st Contact Info) Description 06/21/2019 Transcribed Document [facility] [place] [facility] [place] [address] ProviderMariela MD [address] [place] [phone] Social History Tobacco Use Types Packs/Day Years [...] THIERRY GOODRICH RN - 06/21/2019 11:30 EDT documented in this encounter Plan of Treatment Not on file documented as of this encounter Visit Diagnoses Not on filedocumented in this encounter
--- OUTSIDE RECORDS SUMMARY | 2024-12-21 10:23 | XMS_ITS | Encounter Summary ---
Author Organization [employer] ([place], [place], [place], [place]) Address [address] [place] [address] Care Team Providers Care Grounds Caretaker Name Role Phone Unavailable Primary Care Provider Unavailabl e Encounter Details Date Type Department Care Team (Late st Contact Info) Description 08/25/2018 Transcribed Document [facility] [place] Family Medicine Counts include 234 beds at the [facility] [address] ProviderMariela MD [address] [place] [address] Social History Tobacco Use Types [...]
--- OUTSIDE RECORDS SUMMARY | 2024-12-21 10:23 | XMS_ITS | Encounter Summary ---
Author Organization [employer] ([place], [place], [place], [place]) Address [address] [place] [address] Care Team Providers Care Telecom Analyst Name Role Phone Unavailable Primary Care Provider Unavailabl e Encounter Details Date Type Department Care Team (Late st Contact Info) Description 08/24/2018 Transcribed Document [facility] [place] [facility] [place] [address] ProviderMariela MD [address] [place] [address] Social History Tobacco Use Types Packs/Day [...]
--- OUTSIDE RECORDS SUMMARY | 2024-12-21 10:23 | XMS_ITS | Encounter Summary ---
Author Organization [employer] ([place], [place], [place], [place]) Address [address] [place] [address] Care Team Providers Care Viscose Cellar Charge Hand Name Role Phone Unavailable Primary Care Provider Unavailabl e Encounter Details Date Type Department Care Team (Late st Contact Info) Description 08/25/2018 Transcribed Document [facility] [place] [facility] [place] [address] ProviderMariela MD [facility] [place] [address] Social History Tobacco Use Types [...]
--- OUTSIDE RECORDS SUMMARY | 2024-12-21 10:23 | XMS_ITS | Encounter Summary ---
Author Organization [employer] ([place], [place], [place], [place]) Address [address] [place] [address] Care Team Providers Care Fingernail Sculptor Name Role Phone Unavailable Primary Care Provider Unavailabl e Encounter Details Date Type Department Care Team (Late st Contact Info) Description 06/21/2019 Transcribed Document [facility] [place] [facility] [place] [address] ProviderMariela MD [address] [place] [id number] Social History Tobacco Use Types Packs/Day Years [...] tendon repair. ANESTHESIA: Femoral nerve block, sciatic. ORTHOPEDIC CODER: Brady. ESTIMATED BLOOD LOSS: Minimal. TOURNIQUET TIME: [...] harder than normal. Multiple cultures were sent. /[id number] Riaz Saenz MD CC/AQ / CC / MODL /[id number] Electronically signed by Chantal, [facility] Conversion Corset Fitter Cerner at 06/16/2022 8:21 PM CDT documented in this encounter Plan of Treatment Not on file documented as of this encounter Visit Diagnoses Not on filedocumented in this encounter
--- OUTSIDE RECORDS SUMMARY | 2024-12-21 10:23 | XMS_ITS | Encounter Summary ---
Author Organization [employer] ([place], [place]) Address [address] [place] [address] Care Team Providers Care Developer Prover Upholstering Name Role Phone Unavailable Primary Care Provider Unavailabl e Encounter Details Date Type Department Care Team (Late st Contact Info) Description 08/25/2018 Transcribed Document [facility] [place] Family Medicine [address] [place] [address] ProviderMariela MD [address] [place], [place] [phone] Social History Tobacco Use Types Packs/Day Years [...] All Active Orders Reviewed : Yes Nishi sOuna RN - 08/25/2018 4:42 EDT documented in this encounter Plan of Treatment Not on file documented as of this encounter Visit Diagnoses Not on filedocumented in this encounter
--- OUTSIDE RECORDS SUMMARY | 2024-12-21 10:23 | XMS_ITS | Encounter Summary ---
Author Organization [employer] ([place], [place], [place], [place]) Address [address] [place] [address] Care Team Providers Care Child Nutrition Assistant Name Role Phone Unavailable Primary Care Provider Unavailabl e Encounter Details Date Type Department Care Team (Late st Contact Info) Description 08/24/2018 Transcribed Document [facility] [place] [facility] [place] [address] ProviderMariela MD [facility] [place] [address] Social History Tobacco Use [...] Lymph # 1.73 K/uL 08/24/2018 04:17 EDT [place] % 11.2 % 08/24/2018 04:17 EDT [place] # 1.30 K/uL (High) 08/24/2018 04:17 EDT [...] Appearance CLEAR2 08/23/2018 11:55 EDT Urine Specific [place] 1.022 08/23/2018 11:55 EDT Urine pH Dipstick [...]
--- OUTSIDE RECORDS SUMMARY | 2024-12-21 10:23 | XMS_ITS | Encounter Summary ---
Author Organization [employer] ([place], [place], [place], [place]) Address [address] [place] [address] Care Team Providers Care Multimedia Technician Name Role Phone Unavailable Primary Care Provider Unavailabl e Encounter Details Date Type Department Care Team (Late st Contact Info) Description 08/25/2018 Transcribed Document [facility] [place] [facility] [place] [address] ProviderMariela MD [facility] [place], [place] [phone] Social History Tobacco Use Types Packs/Day Years [...] to perform isometric exercises at this time. PREASSEMBLER AND INSPECTOR instructed pt in isometrics and issued written instructions. Nursing will take care of stand-pivot transfers to [facility] [place] only for activity. CHAITANYA SIMON, PT - 08/25/2018 16:46 EDT Warehouse Analyst Goals Other PT LTG Grid Goal #1 [...]
--- OUTSIDE RECORDS SUMMARY | 2024-12-21 10:23 | XMS_ITS | Encounter Summary ---
Author Organization [employer] ([place], [place], [place], [place]) Address [address] [place] [address] Care Team Providers Care Lumber Yard Worker Name Role Phone Unavailable Primary Care Provider Unavailabl e Encounter Details Date Type Department Care Team (Late st Contact Info) Description 08/25/2018 Transcribed Document [facility] [place] [facility] [place] [address] ProviderMariela MD [place] [address] Social History Tobacco Use Types [...]
--- OUTSIDE RECORDS SUMMARY | 2024-12-21 10:24 | XMS_ITS | Encounter Summary ---
Author Organization [employer] ([place], [place], [place], [place]) Address [address] [place] [address] Care Team Providers Care Electrician Outside Name Role Phone Unavailable Primary Care Provider Unavailabl e Encounter Details Date Type Department Care Team (Late st Contact Info) Description 08/25/2018 Transcribed Document [facility] [place] [facility] [place] [address] ProviderMariela MD [address] [place] [address] Social History Tobacco Use Types Packs/Day Years [...] Historical ProviderMD - 08/25/2018 2:00 AM CDT Welding Operator Details Entered On: 08/25/2018 1:31 EDT Performed [...]
--- OUTSIDE RECORDS SUMMARY | 2024-12-21 10:24 | XMS_ITS | Encounter Summary ---
Author Organization [employer] ([place], [place], [place], [place]) Address [address] [place] [address] Care Team Providers Care Environmental Studies Professor Name Role Phone Unavailable Primary Care Provider Unavailabl e Encounter Details Date Type Department Care Team (Late st Contact Info) Description 06/21/2019 Transcribed Document [facility] [place] [facility] [place] [address] ProviderMariela MD [facility] [place] [address] Social History Tobacco Use Types [...] Mariela ProviderMD - 06/21/2019 12:41 PM CDT [facility] [place] IntraOp Summary Primary Physician: NIMO EPPS MD-ORT Finalized Date/Time: 06/21/19 15:40:53 Pt. Name: SOFIA BARLOW S /Sex: 1940 Female Med Rec #: [id number] Physician: DONNA DRIVER MD-INT Financial #: [id number] Pt. Type: I Room/Bed: [facility]/ Admit/Disch: 06/16/19 21:08:00 - [place] [facility] [place] Case Attendance Entry 1 Entry 2 Entry 3 Case Attendee NIMO EPPS Holliday, Stewart R, RN YUNIOR DUBOSE MD-ORT Role Performed Surgeon/Proceduralist, Blood Bank Booking Clerk, First Scrub, Second First Time In 06/21/19 [...] Jamie, VERONICA MARTINEZ CRNA Role Performed Anesthesiologist Blood Bank Booking Clerk, Second HELP DESK MANAGER/Nurse Pinion Polisher Time In 06/21/19 11:50:00 06/21/19 11:50:00 06/21/19 [...] Nelson, OMAR Wilkinson, ESTEBAN Role Performed Vendor Blood Bank Booking Clerk, Second Front Desk Coordinator, First Time In 06/21/19 11:50:00 06/21/19 11:50:00 [...] Case Attendee SOLOMON MCCRACKEN PA-C Combs, Leslie, Operational Review Sergeant Role Performed Physician agency sales management assistant Scrub, First Time In 06/21/19 11:50:00 06/21/19 11:50:00 Time Out 06/21/19 15:40:00 06/21/19 15:40:00 Procedure Patella Tendon Patella Tendon Repair(Left) Repair(Left) Other Attendee Superficial Wound Closed By: Last Modified By: Luiza Nelson, Luiza Pablo Rn 06/21/19 15:40:48 06/21/19 15:40:48 [facility] IntraOp Case Attendance Audit 06/21/19 15:40:48 Water And Fire Technician: [id number] Modifier: [id number] 1 <*> Procedure Knee Total Joint Revision, [...] <*> Procedure Patella Tendon Repair(Left) 06/21/19 15:26:08 Water And Fire Technician: [id number] Modifier: [id number] 1 <+> Time Out 1 <*> Procedure Knee Total Joint Revision, Wound Incision And Drainage Extremity(Left), Patella Tendon Repair(Left) 7 <+> Time Out 7 <*> Procedure Knee Total Joint Revision, Wound Incision And Drainage Extremity(Left), Patella Tendon Repair(Left) 06/21/19 15:25:31 Water And Fire Technician: [id number] Modifier: [id number] 1 <*> Procedure Knee Total Joint Revision, [...] 10 Procedure <+> 11 Procedure 06/21/19 14:23:50 Water And Fire Technician: [id number] Modifier: [id number] 1 <*> Procedure Knee Total Joint Revision, [...] In <+> 11 Time In 06/21/19 13:23:46 Water And Fire Technician: [id number] Modifier: [id number] 1 <*> Case Attendee NIMO EPPS MD-ORT 1 <*> Role Performed Surgeon/Proceduralist, First 1 <*> Time In 06/21/19 11:50:00 1 <*> Procedure Knee Total Joint Revision, Wound Incision And Drainage Extremity(Left) 2 <*> Case Attendee Vick Schroeder, RN 2 <*> Role Performed Blood Bank Booking Clerk, First 2 <*> Time In 06/21/19 11:50:00 [...] Claus Almanzar, RN 5 <*> Role Performed Blood Bank Booking Clerk, Second 5 <*> Time In 06/21/19 11:50:00 5 <*> Procedure Knee Total Joint Revision, Wound Incision And Drainage Extremity(Left) 6 <*> Case Attendee VERONICA AYALA, HELP DESK MANAGER 6 <*> Role Performed HELP DESK MANAGER/Nurse Pinion Polisher 6 <*> Time In 06/21/19 12:31:00 6 [...] Luiza Nelson, Eddie 8 <*> Role Performed Blood Bank Booking Clerk, Second 8 <*> Time In 06/21/19 11:50:00 [...] Attendee OTHER, ATTENDEE <-> 10 Role Performed Front Desk Coordinator, First <-> 10 Time In 06/21/19 11:50:00 <-> 10 Other Attendee Prince Cornejo 06/21/19 13:05:25 Water And Fire Technician: [id number] Modifier: [id number] 1 <*> Procedure Knee Total Joint Revision, [...] Extremity(Left) <+> 10 Time In 06/21/19 12:59:17 Water And Fire Technician: [id number] Modifier: [id number] <+> 8 Case Attendee <+> 8 Role Performed <+> 8 Procedure <+> 9 Case Attendee <+> 9 Role Performed <+> 9 Procedure <+> 10 Case Attendee <+> 10 Role Performed <+> 10 Other Attendee 06/21/19 12:53:44 Water And Fire Technician: [id number] Modifier: [id number] 1 <*> Procedure Knee Total Joint Revision, [...] Wound Incision And Drainage Extremity(Left) 06/21/19 12:43:54 Water And Fire Technician: [id number] Modifier: [id number] <+> 7 Case Attendee <+> 7 Role Performed <+> 7 Procedure <+> 7 Other Attendee 06/21/19 12:36:50 Water And Fire Technician: [id number] Modifier: [id number] 1 <*> Procedure Knee Total Joint Revision, [...] Wound Incision And Drainage Extremity(Left) 06/21/19 12:31:59 Water And Fire Technician: [id number] Modifier: [id number] <+> Time Out 4 <*> Procedure Knee Total Joint Revision, Wound Incision And Drainage Extremity(Left) <+> 5 Case Attendee <+> 5 Role Performed <+> 5 Procedure <+> 6 Case Attendee <+> 6 Role Performed <+> 6 Time In <+> 6 Procedure 06/21/19 12:23:34 Water And Fire Technician: [id number] Modifier: [id number] 1 <*> Procedure Knee Total Joint Revision, [...] [facility] IntraOp Case Times Audit 06/21/19 15:40:40 Water And Fire Technician: [id number] Modifier: [id number] <+> 1 Out Room Time <+> 1 Stop Time 06/21/19 15:39:30 Water And Fire Technician: [id number] Modifier: [id number] <+> 1 Stop Time 06/21/19 12:52:18 Water And Fire Technician: [id number] Modifier: [id number] <+> 1 Start Time [facility] IntraOp Cautery [...] 13:31:07 [facility] IntraOp Cautery Audit 06/21/19 13:31:07 Water And Fire Technician: [id number] Modifier: [id number] 1 <*> Cautery Type BiPolar ESU 1 [...] [facility] IntraOp Counts Verification Audit 06/21/19 15:25:34 Water And Fire Technician: [id number] Modifier: [id number] 1 <*> Procedure Knee Total Joint Revision, Wound Incision And Drainage Extremity(Left) 2 <*> Procedure Knee Total Joint Revision, Wound Incision And Drainage Extremity(Left) 06/21/19 15:01:44 Water And Fire Technician: [id number] Modifier: [id number] <+> 2 Procedure <+> 2 Count Type <+> 2 Counts Verification Sequence <+> 2 Count Results <+> 2 Count Performed By (Scrub) <+> 2 Count Performed By (RN) 06/21/19 12:54:50 Water And Fire Technician: [id number] Modifier: [id number] 1 <*> Procedure Knee Total Joint Revision, Wound Incision And Drainage Extremity(Left) 1 <*> Count Type Sponge, Sharps 1 <*> Counts Verification Sequence Baseline/pre-procedure 1 <*> Count Results Correct, surgeon notified 1 <+> Count Performed By (Scrub) 1 <+> Count Performed By (RN) 06/21/19 12:51:36 Water And Fire Technician: [id number] Modifier: [id number] 1 <*> Procedure Knee Total Joint Revision, [...] [facility] IntraOp Counts Final Audit 06/21/19 15:25:34 Water And Fire Technician: [id number] Modifier: [id number] 1 <*> Procedure Knee Total Joint Revision, Wound Incision And Drainage Extremity(Left) [facility] IntraOp Cultures and Spec Summary Entry 1 Cultrures and Specimens Specimen Ordered: Yes Test(s) Routine/Path-Lab, Requested/Final Culture(s)/Microbiology Disposition Last Modified By: Luiza Nelson Rn 06/21/19 13:20:20 [facility] IntraOp Cultures and Spec Summary Audit 06/21/19 13:20:20 Water And Fire Technician: [id number] Modifier: [id number] 1 <*> Test(s) Requested/Final Disposition Routine/Path-Lab SJE [...] IntraOp Departure from OR Audit 06/21/19 13:31:50 Water And Fire Technician: [id number] Modifier: [id number] 1 <+> Integumentary Assessment WDL 1 <*> Patient Transport Accompanied by Vick Schroeder, RN 1 <+> Handoff Method [facility] IntraOp Drains and Tubes Entry 1 Device Type Hemovac Size MED. Device Location LEFT KNEE Method of Drainage Compression Comment HEMOVAC X 2 Last Modified By: Luiza Nelson Rn 06/21/19 15:01:21 S[facility] IntraOp Drains and Tubes Audit 06/21/19 15:01:21 Water And Fire Technician: [id number] Modifier: [id number] <+> 1 Comment 06/21/19 13:32:08 Water And Fire Technician: [id number] Modifier: [id number] 1 <*> Device Location OPSITE [facility] IntraOp Dressing and Packing Entry 1 Type Dressing Location LEFT KNEE Wound Dressing Item 4x4's, Sanchez, Webril, Xeroform Supplemental Cold pack Applications Last Modified By: Luiza Nelson Rn 06/21/19 12:23:52 [facility] IntraOp Dressing and Packing Audit 06/21/19 13:32:28 Water And Fire Technician: [id number] Modifier: [id number] 1 <*> Location OPSITE [facility] IntraOp Explant Log Entry 1 Explant Log Description POLY AND HARDWARE Explant Site LEFT KNEE Removal Reason Infection Disposition Sent to pathology Last Modified By: Luiza Nelson Rn 06/21/19 13:33:14 [facility] IntraOp Explant Log Audit 06/21/19 15:19:08 Water And Fire Technician: [id number] Modifier: [id number] 1 <*> Description PATELLA POLY [facility] IntraOp Fire Risk Assessment Entry 1 Fire Info Surgical Site or 0- No Incision Above the Xyphoid Open O2 Source 0- No (Mask or Cannula) Available Ignition 1- Yes (ESU, Laser, Light Source) Fire Risk 1 Assessment Score Fire Score Fire Risk Yes Assessment Complete Fire Risk Luiza eNlson Rn Assessment Verified By Fire Risk 06/21/19 11:23:00 Assessment Verified Date/Time Fire Risk High Risk Protocol Yes Implemented Standard Fire Yes Safety Precautions Followed Last Modified By: Luiza Nelson Rn 06/21/19 12:23:32 SJE IntraOp Fire Risk Assessment Audit 06/21/19 13:33:24 Water And Fire Technician: [id number] Modifier: [id number] 1 <*> Fire Risk Assessment Verified By Vick Schroeder, RN E IntraOp General Case Tubing Machine Tender 1 Case Information OR OR 02 SJE Case Level 1 Room Verified Yes Wound Class IV - Dirty-Infected Specialty SN Orthopedic Anesthesia Type General ASA Class 4 Diagnosis Preop Diagnosis LEFT KNEE INFECTION Postop Same As Preop No Postop Diagnosis DICTATED BY MD Last Modified By: Luiza Nelson Rn 06/21/19 12:51:29 S[facility] IntraOp General Case Data Audit 06/21/19 13:34:03 Water And Fire Technician: [id number] Modifier: [id number] 1 <*> OR OR 09 SJE 1 <+> Postop Same As Preop 1 <*> Preop Diagnosis left knee infection 1 <*> Postop Diagnosis refer to MD notes 06/21/19 12:55:46 Water And Fire Technician: [id number] Modifier: [id number] <+> 1 Preop Diagnosis 06/21/19 12:51:29 Water And Fire Technician: [id number] Modifier: [id number] <+> 1 ASA Class <+> 1 Anesthesia Type <+> 1 Postop Diagnosis <+> 1 Room Verified SJE IntraOp Implant Log Entry 1 Entry 2 Entry 3 Type Implant (Synthetic) Implant (Synthetic) Implant (Synthetic) Implant Log Implant Type Hardware Hardware Hardware Tissue Implant Type Implant INSRT FEM XT SZ [id number] KT SERVICE SEG FEM IMP SEG ARTC SURF B Identification HINGE [id number] Description Implant Quantity 1 1 1 Implant Site LEFT KNEE LEFT KNEE LEFT KNEE Implant Identification Model Number Implant Identification Serial Number Implant [id number] Identification Lot Number Implant Jacquie:Jacquie Us Jacquie:Jacquie Us Jacquie:Jacquie Us Identification Bleacher Pulp Name: Implant [id number] Identification Catalog Number Implant Size Implant Has an Yes Yes Yes Expiration Date Implant Expiration 06/29/27 11/28/24 02/28/27 Date Wasted Radioactive Material Time Implanted Tissue Implant Continue for Tissue Implant Documentation Tissue Identification Number Graft Prep Per Bleacher Pulp Instructions: Tissue Preparation Method: Reconstitution Solution: Reconstitution Solution Lot Number Reconstitution Solution Expiration Date: Thawing Solution Thawing Solution Lot Number Thawing Solution Expiration Date Preparation Materials, Other Preparation Materials, Other Lot Number Preparation Materials, Other Expiration Date Tissue Prepared/Processed By Bleacher Pulp Paperwork Completed Implant Type Comment Last Modified By: Luiza Nelson Rn Maxwell, Kristi, Rn Maxwell, Kristi, Rn 06/21/19 14:40:06 06/21/19 14:40:06 06/21/19 14:40:06 Entry 4 Type Implant (Synthetic) Implant Log Implant Type Hardware Tissue Implant Type Implant COMP FEM XT DIS SZ B Identification [id number] Description Implant Quantity 1 Implant Site LEFT KNEE Implant Identification Model Number Implant Identification Serial Number Implant [id number] Identification Lot Number Implant Jacquie:Jacquie Us Identification Bleacher Pulp Name: Implant [id number] Identification Catalog Number Implant Size Implant Has an Yes Expiration Date Implant Expiration 01/31/30 Date Wasted Radioactive Material Time Implanted Tissue Implant Continue for Tissue Implant Documentation Tissue Identification Number Graft Prep Per Bleacher Pulp Instructions: Tissue Preparation Method: Reconstitution Solution: Reconstitution Solution Lot Number Reconstitution Solution Expiration Date: Thawing Solution Thawing Solution Lot Number Thawing Solution Expiration Date Preparation Materials, Other Preparation Materials, Other Lot Number Preparation Materials, Other Expiration Date Tissue Prepared/Processed By Bleacher Pulp Paperwork Completed Implant Type Comment Last Modified [...] SJE IntraOp Intraoperative Assessment Audit 06/21/19 13:34:44 Water And Fire Technician: [id number] Modifier: [id number] 1 <*> Level of Consciousness (WDL = [...] S[facility] IntraOp Intraoperative Equipment Audit 06/21/19 13:51:08 Water And Fire Technician: [id number] Modifier: [id number] <+> 1 Blood Pressure Location <+> 1 Pulse Oximeter Probe Site <+> 1 Antiembolic Device Location <+> 1 Blood Pressure Source SJE IntraOp Medication Admin Entry 1 Entry 2 Entry 3 Medication/Irrigant TRANEXAMIC ACID ANESTHETIC vancomycin 1Gm vial - 1000MG/10 ML MAHENDRA-EPPS [id number] Combo Med List Time Administered Route of [...] SJE IntraOp Patient Positioning Audit 06/21/19 13:51:47 Water And Fire Technician: [id number] Modifier: [id number] 1 <*> Procedure Knee Total Joint Revision [...] SJE IntraOp Sign In Audit 06/21/19 13:51:56 Water And Fire Technician: [id number] Modifier: [id number] <+> 1 Allergies SJE Intra Op Sign [...] Intra Op Sign Out Audit 06/21/19 15:40:46 Water And Fire Technician: [id number] Modifier: [id number] <+> 1 RN Sign Out Signature Date/Time [...] S[facility] IntraOp Skin Prep Audit 06/21/19 14:22:51 Water And Fire Technician: [id number] Modifier: [id number] 1 <*> Prep Area OPSITE 1 <*> [...] IV - Dirty-Infected Last Modified By: Luiza Nleson, Luiza Pablo Rn Maxwell, Kristi, Rn 06/21/19 15:25:19 06/21/19 15:25:19 06/21/19 15:25:19 S[facility] IntraOp Surgical Procedures Audit 06/21/19 15:39:32 Water And Fire Technician: [id number] Modifier: [id number] <+> 1 Stop <+> 2 Stop <+> 3 Stop 06/21/19 15:25:19 Water And Fire Technician: [id number] Modifier: [id number] 1 <*> Procedure Knee Total Joint Revision [...] Class <+> 3 Anesthesia Type 06/21/19 14:43:08 Water And Fire Technician: [id number] Modifier: [id number] 1 <*> Procedure Knee Total Joint Revision [...] Information identity, Correct side Electronically signed by [facility] Conversion Mrp Controller Cerner at 06/16/2022 8:17 PM CDT documented in this encounter Plan of Treatment Not on file documented as of this encounter Visit Diagnoses Not on filedocumented in this encounter
--- OUTSIDE RECORDS SUMMARY | 2024-12-21 10:24 | XMS_ITS | Encounter Summary ---
Author Organization [employer] ([place], [place], [place], [place]) Address [address] [place] [address] Care Team Providers Care Feeder Tender Name Role Phone Unavailable Primary Care Provider Unavailabl e Encounter Details Date Type Department Care Team (Late st Contact Info) Description 06/21/2019 Transcribed Document [facility] [place] [facility] [place] [address] ProviderMariela MD [address] [place] [address] Social History Tobacco Use Types Packs/Day [...] Source : Stated Height Entry Format : [place] Height, Feet : 4 ft(Converted to: 122 cm, 48 Inch) Height, Inches : 11 Inch(Converted to: 0 ft 11 Inch, 27.94 cm) Clinical Height : 149.86 cm Weight Source : Bed scale Weight Entry Format : [place] Clinical Dosing Weight : 91.82 kg Weight, Pounds : 202 lb Body Surface Area (BSA) : 1.85 m2 Body Mass Index : 40.9 kg/m2 (>HHI) [place] Body Weight : 43 kg THIERRY GOODRICH [...] THIERRY GOODRICH RN - 06/21/2019 11:52 EDT [place] Suicide Severity Rating Scale (C-SSRS) CSSRS Past [...] Any Spiritual/Cultural Needs or Requests : Yes Mu-Ism Preference : Adventism THIERRY GOODRICH RN - 06/21/2019 10:27 EDT [...] commands Nazia Best Verbal Response : Oriented [place] Eye Opening Response : Spontaneous Nazia Coma Score : 15 THIERRY GOODRICH RN - 06/21/2019 10:27 EDT documented in this encounter Plan of Treatment Not on file documented as of this encounter Visit Diagnoses Not on filedocumented in this encounter
--- OUTSIDE RECORDS SUMMARY | 2024-12-21 10:24 | XMS_ITS | Encounter Summary ---
Author Organization [employer] ([place], [place], [place], [place]) Address [address] [place] [address] Care Team Providers Care Water Carter Name Role Phone Unavailable Primary Care Provider Unavailabl e Encounter Details Date Type Department Care Team (Late st Contact Info) Description 06/21/2019 Transcribed Document [facility] [place] [facility] [place] [address] ProviderMariela MD [address] [place] [address] Social History Tobacco Use Types Packs/Day Years [...]
--- OUTSIDE RECORDS SUMMARY | 2024-12-21 10:24 | XMS_ITS | Encounter Summary ---
Author Organization [employer] [facility] ([place], [place], [place], [place]) Address [address] [place] [address] Care Team Providers Care Babbitt Spinner Name Role Phone Unavailable Primary Care Provider Unavailabl e Encounter Details Date Type Department Care Team (Late st Contact Info) Description 06/21/2019 Transcribed Document [facility] [place] [facility] [place] [address] ProviderMariela MD [address] [place] [address] Social History Tobacco Use Types Packs/Day Years [...] 06/21/2019 11:29 EDT Electronically signed by Chantal [facility] Conversion Croze Cutter Cerner at 06/16/2022 8:16 PM CDT documented in this encounter Plan of Treatment Not on file documented as of this encounter Visit Diagnoses Not on filedocumented in this encounter
--- OUTSIDE RECORDS SUMMARY | 2024-12-21 10:24 | XMS_ITS | Encounter Summary ---
Author Organization [facility] Address [address] [place] [address] Care Team Providers Care Coremaker Pipe Name Role Phone Gracia Cleaning Dr Primary [...] Description 11/12/2025 11:15 AM EDT [facility] [address] [facility] [address] [place] [address] Deepa Lama MD [address] [facility] [address] [place] [address] documented as of this encounter Visit Diagnoses Not on filedocumented in this encounter Care Teams Coremaker Pipe Relationship Specialty Start Date End Date Gracia Cleaning Dr. PCP - General 09/18/24 documented as of this encounter
--- OUTSIDE RECORDS SUMMARY | 2024-12-21 10:24 | XMS_ITS | Encounter Summary ---
Author Organization [employer] ([place], [place], [place], [place]) Address [address] [place] [address] Care Team Providers Care Ms Sql Server Developer Name Role Phone Unavailable Primary Care Provider Unavailabl e Encounter Details Date Type Department Care Team (Late st Contact Info) Description 08/25/2018 Transcribed Document [facility] [place] [facility] [place] [address] ProviderMariela MD [facility] [place] [address] Social History Tobacco Use Types [...]
--- OUTSIDE RECORDS SUMMARY | 2024-12-21 10:24 | XMS_ITS | Encounter Summary ---
Author Organization [facility] Address [address] [place] [address] Care Team Providers Care Tannery Worker Name Role Phone Gracia Cleaning Dr [...] Description 11/12/2025 11:15 AM EDT [facility] [address] [facility] [address] [place] [address] Deepa Lama MD [address] [facility] [address] [place] [address] documented as of this encounter Visit Diagnoses Not on filedocumented in this encounter Care Teams Tannery Worker Relationship Specialty Start Date End Date Gracia Cleaning Dr. PCP - General 09/18/24 documented as of this encounter
[2024-12-21 10:37] LABS: Hematocrit 34.2 % (37.0-47.0); Hemoglobin 10.7 g/dL (12.2-16.2); Immature Granulocytes % 0.2 %; Mean Corpuscular HGB Conc 31.3 g/dL (31.8-35.4); Mean Corpuscular Hemoglobin 30.7 pg (27.0-31.2); Mean Corpuscular Volume 98.0 fl (81-99); Nucleated Red Blood Cells % 0 %; Platelet Count 397 K/mm3 (142-424); Red Blood Count 3.49 M/mm3 (4.20-5.40); Red Cell Distribution Width-SD 44.7 fL; White Blood Count 8.0 K/mm3 (4.8-10.8)
[2024-12-21 11:27] LABS: Chloride 95 mmol/L (98-107); Potassium 4.6 mmoL/L (3.5-5.1); Sodium 133 mmol/L (136-145)
[2024-12-21 11:30] LABS: Anion Gap 13.6 mEq/L (5-15); Blood Urea Nitrogen 40 mg/dl (7-17); Calcium 8.2 mg/dl (8.4-10.2); Carbon Dioxide 29 mmol/L (22.0-30.0); Creatinine,Serum 1.00 mg/dl (0.52-1.04); Estimated Glomerular Filt Rate 53 ml/min (>60); GFR (African American) 64 ML/MIN (>60); Glucose 105 mg/dl (74-100)
== END 2024-12-21 23:59 | disposition home or self-care (01) ==
LOC: LAB 09:50
PROVIDERS: PCP Nurse Practitioner Family; Visit Provider Nurse Practitioner Family
DX: I25.10 Atherosclerotic heart disease of native coronary artery without angina pectoris (principal); I11.9 Hypertensive heart disease without heart failure; E78.5 Hyperlipidemia, unspecified
CPT/HCPCS: 36415; 80048; 85025